=== PATIENT | male | born 1965 | race African-American/Black ===

== ENCOUNTER → 2017-11-02 06:40 | Outpatient (CLI) | payer MEDICARE, SELFPAY ==
--- NOTE | 2017-11-02 06:45 | MRI_ITS ---
STUDY: MRI BRAIN WITHOUT CONTRAST REASON FOR EXAM: Male, 52 years old. syncope, pt has episodes every 4-6 mos. TECHNIQUE: Standardized multiplanar fat and water weighted pulse sequences were obtained. COMPARISON: December 29, 2016 FINDINGS: Normal size of the ventricles and extra-axial spaces for the patient's age. There are a limited number of small white matter hyperintensities, distributed throughout the deep white matter tracts of the cerebral hemispheres,, nonspecific but most commonly seen with mild chronic white matter ischemic changes. Normal bilateral basal ganglia. Normal thalami. There is no extra-axial fluid accumulation. Normal flow voids within the major intracranial circulation suggesting patency by spin echo criteria. Normal sella turcica, pituitary gland, infundibular stalk, optic chiasm and hypothalamus. Normal tectal plate and pineal gland. Normal midbrain, fady and medulla. Normal cerebellum. Normal basal cisterns. Normal bilateral temporal bones. Normal bilateral internal auditory canals. No demonstrated orbital abnormality, within the constraints of a routine brain study. Normal visualized paranasal sinuses. Normal calvarium and skull base. Normal visualized soft tissue structures. Normal visualized upper cervical spine. MRI/Brain without Contrast IMPRESSION: No acute intracranial abnormality or masses. Electronically Signed: Ilia Maxwell MD at 15:42 EST Tel , Service support ,
== END ==
PROVIDERS: Visit Provider Psychiatry & Neurology Neurology
DX: R55 Syncope and collapse (principal)
CPT/HCPCS: 70551

== ENCOUNTER → 2017-11-17 06:56 | Outpatient (CLI) | payer MEDICARE, SELFPAY ==
--- NOTE | 2017-11-19 13:23 | EEG_ITS ---
- Electroencephalogram Is an 18 channel electroencephalogram performed utilizing the International 10- 20 electrode placement protocol on this 52-year-old male with a history of syncope. EKG rhythm strip recording, photic stimulation, and hyperventilation were also performed. The patient remained awake throughout the recording with no lateralizing or epileptiform changes. Background activity is 10 Hz symmetrically in the posterior leads which attenuates with eye opening. Hyperventilation is performed for 4 minutes with good effort with no lateralizing or epileptiform changes in the post hyperventilatory phase was unremarkable. Photic stimulation generates a normal symmetric driving response and EKG rhythm is sinus throughout. Impression: Normal awake electroencephalogram.
== END ==
PROVIDERS: Visit Provider Psychiatry & Neurology Neurology
DX: R55 Syncope and collapse (principal); I49.9 Cardiac arrhythmia, unspecified
CPT/HCPCS: 95819

== ENCOUNTER 2018-02-28 17:00 | Observation (INO) | payer MEDICARE, SELFPAY ==
--- NOTE | 2018-02-28 19:00 | US_ITS ---
STUDY: CT ABDOMEN AND PELVIS WITHOUT CONTRAST REASON FOR EXAM: Male, 53 years old. Abdominal pain and nausea. RADIATION DOSAGE (If Supplied By Facility): CTDIvol = ( 14.71 ) mGy, DLP = ( 732.62 ) mGycm TECHNIQUE: Transaxial images were obtained from the dome of the diaphragm to the symphysis pubis without oral contrast, and without intravenous contrast. Sagittal and coronal images were reconstructed. Individualized dose optimization techniques were used for this CT. COMPARISON: Comparison is made with prior study dated March 01, 2018. FINDINGS: The visualized lung bases are unremarkable. The visualized portions of the heart are within normal limits. There is decreased attenuation of the liver consistent with steatosis. Hepatomegaly. Normal gallbladder and extrahepatic biliary system. Normal spleen. Normal pancreas. Normal bilateral adrenal glands. Normal right kidney. Normal left kidney. There is a small hiatal hernia. Normal small intestine. Normal colon. The appendix is visualized and appears normal. There is scattered atherosclerotic calcification of the abdominal aorta, without a demonstrated aneurysm. Normal inferior vena cava. Normal retroperitoneum. Normal urinary bladder. Normal abdominal wall. Normal osseous structures. Straightening of the normal lumbar lordosis. US/Abdomen Limited IMPRESSION: Hepatomegaly and fatty infiltration of the liver. Electronically Signed: Brendan Ty MD at 15:34 EST , Service support ,
--- NOTE | 2018-03-01 00:01 | CT_ITS ---
STUDY: CT ABDOMEN AND PELVIS WITH CONTRAST REASON FOR EXAM: Male, 52 years old. Abdominal pain. Nausea. RADIATION DOSAGE (If Supplied By Facility): CTDIvol = ( 16.17 ) mGy, DLP = ( 1175.57 ) mGycm TECHNIQUE: Transaxial images were obtained from the dome of the diaphragm to the symphysis pubis with oral contrast. 100 ml of Isovue 300 contrast was administered. Sagittal and coronal images were reconstructed. Individualized dose optimization techniques were used for this CT. COMPARISON: December 29, 2016. FINDINGS: Lower lung atelectasis. The visualized portions of the heart are within normal limits. There is hepatomegaly with diffuse hepatic enlargement. There is increased density adjacent to the gallbladder fossa suggesting focal sparing of fatty infiltration. Normal gallbladder and extrahepatic biliary system. Normal spleen. Normal pancreas. Normal bilateral adrenal glands. Normal right kidney. There is 0.8 cm cyst of the left kidney. There is no hydronephrosis. Normal visualized stomach. Normal small intestine. Normal colon. The appendix is visualized and appears normal. There is atherosclerotic calcification of the abdominal aorta, without a demonstrated aneurysm. Normal inferior vena cava. Normal retroperitoneum. Normal urinary bladder. There is mild free fluid in the pelvis. Normal abdominal wall. Normal osseous structures. CT/Abdomen/Pelvis WITH Contrast IMPRESSION: No intra-abdominal mass or obstruction. Normal appendix. Liver is enlarged. There is mild free fluid. Electronically Signed: Saurabh Pickens MD at 8:48 EDT , Service support ,
--- NOTE | 2018-03-01 02:45 | DT_ITS ---
This patient was seen during an EMR downtime February 26, 2018 - March 05, 2018. This patient may have a combination of paper and electronic documentation or all paper documentation. All documentation is viewable within the e-chart portion of [facility] for each patient visit.
--- NOTE | 2018-03-02 08:11 | RAD_ITS ---
CLINICAL HISTORY: Male, 52 years old. Right-sided abdominal pain PROCEDURE: Upper GI FLUOROSCOPY TIME (if supplied): (2:34) minutes/seconds TECHNIQUE: (Following ingestion of contrast fluoroscopic examination of the esophagus and upper GI tract was performed followed by acquisition of 10 images in varying projection. FINDINGS: Esophagus demonstrated normal contour and motility. There is no appreciable hiatal hernia is noted however there was minor reflux demonstrated during the study. Stomach demonstrated normal distensibility and contractility. There is no gastric mass or ulcer crater. Duodenal bulb has normal radiographic appearance without evidence for active ulcer disease. No extrinsic masses are identified. RAD/Upper GI Series Only IMPRESSION: Minor gastroesophageal reflux. No evidence for active ulcer disease or mass lesion Electronically Signed: Francesco Amraal MD at 16:30 EDT , Service support ,
[2018-03-03 06:52] LABS: AST(SGOT) 29 U/L (15-37); Alanine Aminotransfer ALT/SGPT 52 U/L (16-61); Albumin, Serum 4.4 g/dL (3.2-5.0); Alkaline Phosphatase 76 U/L (45-117); Anion Gap 10 (5-15); BUN 12 mg/dL (7-18); BUN/Creat Ratio 10.5 RATIO (10-20); Bilirubin, Direct 0.12 mg/dL (0.00-0.30); Calcium,Total 9.4 mg/dL (8.5-10.1); Chloride 102 mmol/L (98-107); Creatinine, Serum 1.14 mg/dL (0.70-1.30); EST Glomerular Filtration Rate 72 mL/min (>60); Est Glom Filt Rate - Afr Amer 87 mL/min (>60); Globulin 3.9 g/dL (2.2-4.2); Glucose 148 mg/dL (74-106); Lipase 229 U/L (73-393); Potassium 3.6 mmol/L (3.5-5.1); Protein, Total 8.3 g/dL (6.4-8.2); Sodium Level 140 mmol/L (136-145)
[2018-03-03 10:30] LABS: Hematocrit 41.9 % (40-54); Hemoglobin 14.2 g/dl (13.0-16.5); Mean Corp Hgb Conc 33.9 g/gl (32-36); Mean Corpuscular Volume 91.5 fL (80-94); Mean Platelet Vol. 9.9 fl (6.2-12.0); POSITIVE COUNT NO; POSITIVE DIFFERENTIAL NO; POSITIVE MORPHOLOGY NO; Platelet Count 192 K/mm3 (150-450); RBC Distribution Width CV 13.4 % (11.6-14.6); RBC Distribution Width SD 43.9 fl (35.1-43.9); Red Blood Count 4.58 M/mm3 (4.6-6.2); White Blood Count 12.5 K/mm3 (4.4-11.0)
[2018-03-03 10:31] LABS: Absolute Lymphocyte Count 3.89 X10^3/ul (0.83-4.51); Absolute Neutrophil Count 7.8 X10^3/uL (2.0-7.7); Basophil# 0.03 X10^3/uL; Basophil% 0.2 % (0-1); Eosinophils% 1.6 % (0-5); Lymphocyte # 3.89 X10^3/ul (4.0); Lymphocyte % 31.2 % (19-41); Monocyte# 0.53 X10^3/uL; Monocyte% 4.3 % (0-10); Neutrophil % 62.5 % (47-70)
[2018-03-03 11:18] LABS: Bacteria 0 SEEN /hpf (None Seen); Mucous, Urine 0 SEEN /hpf (<or=2+); Red Blood Cells-Urine 0 SEEN /hpf (0-5)
[2018-03-03 11:26] LABS: Color, Urine Yellow (Yellow); Glucose, Dipstick 250 mg/dl (Normal); Ketone-Dipstick Negative (Negative); Leukocyte Esterase-Dipstick Negative /ul (Negative); Nitrite-Dipstick Negative (Negative); Occult Blood-Urine Negative /ul (Negative); Protein-Dipstick 15 mg/dl (Negative); Urine Bilirubin Dipstick Negative (Negative); Urine Clarity Clear (Clear); Urine Urobilinogen Normal (Normal)
[2018-03-03 11:27] LABS: Squamous Epithelial Cells - UA 0-5 SEEN /hpf (0-5); White Blood Cells 0-5 SEEN /hpf (0-5)
[2018-03-03 13:46] LABS: BUN 11 mg/dL (7-18); BUN/Creat Ratio 10.5 RATIO (10-20); Creatinine, Serum 1.05 mg/dL (0.70-1.30); EST Glomerular Filtration Rate 79 mL/min (>60); Est Glom Filt Rate - Afr Amer 96 mL/min (>60); Glucose 153 mg/dL (74-106); Protein, Total 6.8 g/dL (6.4-8.2)
[2018-03-03 13:47] LABS: ALB/GLOB Ratio 1.1 RATIO (0.9-2.4); AST(SGOT) 21 U/L (15-37); Alanine Aminotransfer ALT/SGPT 41 U/L (16-61); Albumin, Serum 3.6 g/dL (3.2-5.0); Alkaline Phosphatase 55 U/L (45-117); Anion Gap 8 (5-15); Calcium,Total 8.5 mg/dL (8.5-10.1); Chloride 104 mmol/L (98-107); Globulin 3.2 g/dL (2.2-4.2); Lipase 135 U/L (73-393); Magnesium 1.6 mg/dL (1.6-2.6); Potassium 3.7 mmol/L (3.5-5.1); Sodium Level 139 mmol/L (136-145)
[2018-03-03 14:58] LABS: Absolute Neutrophil Count 7.4 X10^3/uL (2.0-7.7); Basophil# 0.02 X10^3/uL; Basophil% 0.2 % (0-1); Eosinophil# 0.21 X10^3/uL; Eosinophils% 1.8 % (0-5); Hematocrit 37.3 % (40-54); Hemoglobin 12.4 g/dl (13.0-16.5); Lymphocyte % 29.9 % (19-41); Mean Corp Hgb Conc 33.2 g/gl (32-36); Mean Corpuscular Hgb 30.5 pg (27.0-32.0); Mean Corpuscular Volume 91.9 fL (80-94); Mean Platelet Vol. 9.6 fl (6.2-12.0); Monocyte# 0.58 X10^3/uL; Neutrophil # 7.37 X10^3/uL (2.7-7.7); POSITIVE COUNT NO; POSITIVE DIFFERENTIAL NO; POSITIVE MORPHOLOGY NO; Platelet Count 172 K/mm3 (150-450); RBC Distribution Width CV 13.4 % (11.6-14.6); RBC Distribution Width SD 44.3 fl (35.1-43.9); Red Blood Count 4.06 M/mm3 (4.6-6.2); White Blood Count 11.7 K/mm3 (4.4-11.0)
[2018-03-06 09:03] LABS: Bedside Glucose 160 mg/dL (70-110)
[2018-03-06 09:25] LABS: Bedside Glucose 166 mg/dL (70-110)
[2018-03-06 09:27] LABS: Bedside Glucose 159 mg/dL (70-110)
[2018-03-06 09:29] LABS: Bedside Glucose 179 mg/dL (70-110)
[2018-03-06 09:31] LABS: Bedside Glucose 128 mg/dL (70-110)
== END 2018-03-02 11:20 | disposition home or self-care (01) ==
LOC: ED 03-01 08:05 → MS3 03-01 08:16
PROVIDERS: Admitting Provider Family Medicine; Emergency Provider Emergency Medicine; Visit Provider Family Medicine
DX: K21.0 Gastro-esophageal reflux disease with esophagitis (principal); E11.9 Type 2 diabetes mellitus without complications; I10 Essential (primary) hypertension; E78.5 Hyperlipidemia, unspecified; I25.10 Atherosclerotic heart disease of native coronary artery without angina pectoris; G40.909 Epilepsy, unspecified, not intractable, without status epilepticus; Z79.899 Other long term (current) drug therapy; Z79.82 Long term (current) use of aspirin; Z79.84 Long term (current) use of oral hypoglycemic drugs; F32.9 Major depressive disorder, single episode, unspecified; I25.2 Old myocardial infarction; F41.9 Anxiety disorder, unspecified; H40.9 Unspecified glaucoma; E66.9 Obesity, unspecified; Z68.29 Body mass index [BMI] 29.0-29.9, adult; Z71.3 Dietary counseling and surveillance
CPT/HCPCS: 36415; 74177; 74246; 76705; 80048; 80053; 80076; 81001; 82962; 83690; 83735; 85025; 96361; 96372; 96374; 96375; 96376; 97802; 99218; 99284; J7030; Q9967; A4216; G0378; J2405

== ENCOUNTER → 2018-03-19 13:15 | Outpatient (CLI) | payer MEDICARE, SELFPAY ==
--- NOTE | 2018-03-19 13:36 | BI_ITS ---
MAMMOGRAPHY - BILATERAL DIAGNOSTIC REASON FOR EXAM: Male, 52 years old. One-month history of left breast swelling and tenderness. PERTINENT HISTORY: Non-contributory. TECHNIQUE: Digital bilateral breast karley (3D mammographic acquisition) in the CC and MLO projections. 2-D mediolateral oblique (MLO) and craniocaudad (CC) views of both breasts were obtained. CAD: Full Field Digital Mammography with Computer Added Detection was performed. COMPARISON: Comparison is made with prior examination of November 29, 2012. FINDINGS: Breast Composition: The breasts are almost entirely fatty. Stable appearance of the retroareolar glandular tissue. Stable appearance of the 2 small well-defined nodules in the axillary region of the left breast most likely representing small lymph nodes. These measure 4.2 mm. No other significant abnormalities are identified. There has been no significant change since the prior study. BI/DIAG MAMM W/CAD, BILAT IMPRESSION: Stable bilateral diagnostic mammogram. With the patient's history of the left breast swelling and tenderness, correlation with ultrasound is recommended. ASSESSMENT CATEGORY: BIRADS Category 0: Incomplete. Need additional imaging evaluation. A letter regarding these results will be sent to the patient by the facility within 30 days. Approximately 10% of breast cancers are not detected by mammography. A normal mammogram should not delay biopsy of a clinically suspicious abnormality. Electronically Signed: Brendan Ty MD at 14:33 EDT Tel [phone], Service support ,
--- NOTE | 2018-03-19 14:15 | US_ITS ---
STUDY: ULTRASOUND BREAST - RIGHT REASON FOR EXAM: Male, 52 years old. Pain in the left breast. TECHNIQUE: Axial and longitudinal images of the RIGHT breast were performed with a high resolution ultrasound transducer. COMPARISON: Comparison is made with prior mammogram done earlier today. FINDINGS: RIGHT Breast: Small amount of fibroglandular tissue in the retroareolar region. This is in keeping with gynecomastia. IMPRESSION: Small amount of fibroglandular tissue in the retroareolar region of the breasts suggest lobar gynecomastia. ASSESSMENT CATEGORY: BIRADS Category 2: Benign. A letter regarding these results will be sent to the patient by the facility within 30 days. Electronically Signed: Brendan Ty MD at 15:48 EDT Tel [phone], Service support , STUDY: ULTRASOUND BREAST - LEFT REASON FOR EXAM: Male, 52 years old. Pain in the left breast. TECHNIQUE: Axial and longitudinal images of the LEFT breast were performed with a high resolution ultrasound transducer. COMPARISON: Comparison is made with prior mammogram done earlier today. FINDINGS: LEFT Breast: Small amount of the thyroid glandular tissue in the retroareolar region suggestive of gynecomastia. US/Breast Limited Unilateral IMPRESSION: Findings suggestive of gynecomastia. ASSESSMENT CATEGORY: BIRADS Category 2: Benign. A letter regarding these results will be sent to the patient by the facility within 30 days. Electronically Signed: Brendan Ty MD at 15:48 EDT Tel [phone], Service support ,
== END ==
DX: N62 Hypertrophy of breast (principal)
CPT/HCPCS: 76642; 77062; 77066; G0279

== ENCOUNTER → 2018-04-03 12:20 | Outpatient (CLI) | payer MEDICARE, SELFPAY ==
--- NOTE | 2018-04-03 12:24 | MRI_ITS ---
STUDY: MRI CERVICAL SPINE WITH AND WITHOUT CONTRAST REASON FOR EXAM: Male, 52 years old. H/O PRIOR HERNIATED DISC, , C/O SHOOTING PAIN L ARM WITH NUMBNESS AND TINGLING X 1 YR. TECHNIQUE: Standardized fat and water weighted pulse sequences were obtained in the sagittal and axial following I.V. administration of 10 ml of Gadavist contrast material. COMPARISON: None FINDINGS: Normal foramen magnum and brainstem-cervical cord junction. Normal craniovertebral junction. Normal anterior atlantoaxial articulation. Normal odontoid process. There is straightening of the normal cervical lordosis. Normal vertebral bodies and posterior osseous elements. C2-3: Normal endplates. Normal disc height, signal and morphology. Normal central canal and intervertebral neural foramina. C3-4: Normal endplates. Normal disc height, signal and morphology. Normal central canal and intervertebral neural foramina. C4-5: There is minimal disc space narrowing and endplate spondylosis. There is no significant disc herniation, spinal canal or foramina stenosis. C5-6: There is mild disc space narrowing and endplate spondylosis. There is a mild disc osteophyte complex with mild central canal stenosis. There is uncovertebral arthropathy with mild right and moderate left foraminal stenosis. C6-7: There is moderate disc space narrowing and endplate spondylosis. There is a mild disc osteophyte complex with mild central canal stenosis. There is uncovertebral arthropathy with mild right and moderate left foraminal stenosis. C7-T1: There is minimal disc space narrowing and endplate spondylosis. There is no significant central canal or right foraminal stenosis. There is uncovertebral arthropathy with mild left foraminal stenosis. Normal cervical cord. Normal visualized soft tissue structures. MRI/Spine Cervical W/WO Contrast IMPRESSION: C5/C6: Moderate left foraminal stenosis. C6/C7: Moderate left foraminal stenosis. Electronically Signed: Ilia Maxwell MD at 9:01 EDT Tel , Service support ,
== END ==
PROVIDERS: Visit Provider Nurse Practitioner Acute Care
DX: M79.602 Pain in left arm (principal); R20.0 Anesthesia of skin; R20.2 Paresthesia of skin
CPT/HCPCS: 72156; A9585

== ENCOUNTER → 2018-07-24 07:04 | Outpatient (CLI) | payer MEDICARE, SELFPAY ==
--- NOTE | 2018-07-24 11:10 | NEURO ---
NCS and/or EMG Patient Report Ordering Doctor: Heather Kelley DATE OF SERVICE: 07/24/18 This is a left upper extremity EMG and nerve conduction study performed on this 53-year-old male with a history of well-controlled diabetes and a most recent he an A1c of 6.3. The patient experienced a 3-month episode of pain and numbness radiating from his neck down to his left wrist which is now resolved. The symptoms seem to have been triggered by an episode of heavy lifting. Left upper extremity sensory and motor nerve conduction studies performed. The median motor and sensory and ulnar motor and sensory and radial sensory response is normal. The median ulnar F-wave latencies on the left side are normal. Left upper extremity needle electromyography is performed. Muscles evaluated included the abductor pollicis brevis, first dorsal interosseous, brachioradialis, biceps, triceps and deltoid muscles. All muscles demonstrated normal insertional activity with absence of pathologic spontaneous activity. Motor unit potential recruitment pattern and amplitude is normal in all muscles tested. Impression: Normal electrophysiologic study of the left upper extremity.
== END ==
PROVIDERS: Referring Provider Nurse Practitioner Acute Care; Visit Provider Nurse Practitioner Acute Care
DX: R20.0 Anesthesia of skin (principal); R20.2 Paresthesia of skin
CPT/HCPCS: 95886; 95909

== ENCOUNTER 2018-11-09 10:43 | Emergency (ER) | payer MEDICARE, SELFPAY ==
[2018-11-09 10:46] VITALS: BP 171/108; PULSE 124; RESP 17; TEMP 36.4; O2SAT 98; BMI 29.4
[2018-11-09 10:56] LABS: Bedside Glucose 240 mg/dL (70-110)
--- NOTE | 2018-11-09 11:05 | EKG12_ITS ---
Test Reason : ABD PAIN Blood Pressure : / mmHG Vent. Rate : 092 BPM Atrial Rate : 092 BPM P-R Int : 138 ms QRS Dur : 086 ms QT Int : 344 ms P-R-T Axes : 051 -08 012 degrees QTc Int : 425 ms Normal sinus rhythm T wave abnormality, consider lateral ischemia Abnormal ECG Confirmed by CHIP CADE, TAPAN ([id number]), news copy editor EDITH BARFIELD ([id number]) on 11/13/2018 10:38:37 AM Referred By: LISA Confirmed By:TAPAN SAUNDERS MD
[2018-11-09 11:18] LABS: Absolute Lymphocyte Count 2.15 X10^3/ul (0.83-4.51); Absolute Neutrophil Count 5.9 X10^3/uL (2.0-7.7); Basophil# 0.01 X10^3/uL; Basophil% 0.1 % (0-1); Eosinophil# 0.18 X10^3/uL; Hematocrit 44.5 % (40-54); Hemoglobin 14.6 g/dl (13.0-16.5); Lymphocyte # 2.15 X10^3/ul (4.0); Lymphocyte % 24.3 % (19-41); Mean Corp Hgb Conc 32.8 g/gl (32-36); Mean Corpuscular Hgb 30.3 pg (27.0-32.0); Mean Corpuscular Volume 92.3 fL (80-94); Mean Platelet Vol. 10.2 fl (6.2-12.0); Monocyte% 6.8 % (0-10); Neutrophil # 5.91 X10^3/uL (2.7-7.7); Neutrophil % 66.7 % (47-70); Platelet Count 168 K/mm3 (150-450); RBC Distribution Width CV 13.8 % (11.6-14.6); RBC Distribution Width SD 46.8 fl (35.1-43.9); Red Blood Count 4.82 M/mm3 (4.6-6.2); White Blood Count 8.9 K/mm3 (4.4-11.0)
[2018-11-09 11:24] LABS: POSITIVE COUNT NO; POSITIVE DIFFERENTIAL NO; POSITIVE MORPHOLOGY NO
[2018-11-09] MEDS: HYDROmorphone 1 MG/ML Syringe IV (11:37)
[2018-11-09] MEDS: Ondansetron 4 MG/2 ML Vial IV (11:37)
[2018-11-09] MEDS: 0.9% Normal Saline 1,000 ML 125 ML IV (11:37)
[2018-11-09 11:41] LABS: AST(SGOT) 65 U/L (15-37); Alanine Aminotransfer ALT/SGPT 68 U/L (16-61); Albumin, Serum 4.3 g/dL (3.2-5.0); Alkaline Phosphatase 81 U/L (45-117); Anion Gap 14 (5-15); BUN 15 mg/dL (7-18); BUN/Creat Ratio 11.5 RATIO (10-20); Chloride 99 mmol/L (98-107); Creatinine, Serum 1.31 mg/dL (0.70-1.30); EST Glomerular Filtration Rate 61 mL/min (>60); Est Glom Filt Rate - Afr Amer 73 mL/min (>60); Estimated Creatinine Clearance 69.46 ml/min; Globulin 4.2 g/dL (2.2-4.2); Glucose 229 mg/dL (74-106); Lipase 210 U/L (73-393); Potassium 3.4 mmol/L (3.5-5.1); Protein, Total 8.5 g/dL (6.4-8.2); Sodium Level 134 mmol/L (136-145)
[2018-11-09 12:00] LABS: Red Blood Cells-Urine 0 SEEN /hpf (0-5)
--- NOTE | 2018-11-09 12:02 | US_ITS ---
STUDY: ABDOMINAL ULTRASOUND - RIGHT UPPER QUADRANT REASON FOR VISIT: Male, 53 years old. Abdominal pain. TECHNIQUE: Ultrasound evaluation of the right upper quadrant was performed with real-time and static adam-scale imaging. TECHNICAL QUALITY: Adequate. COMPARISON: Comparison is made with prior study dated February 28, 2018. FINDINGS: Liver: The liver is slightly enlarged and measures 18.3 cm. There is increased echogenicity consistent with fatty infiltration. The bile ducts are within normal limits. There is hepatic color flow. The direction of portal flow is hepatopetal. There is no demonstrated mass lesion. Gallbladder: Normal distended gallbladder. The gallbladder wall measures 3.0 mm. There is a negative sonographic Holder's sign. There is no pericholecystic fluid. There are no gallstones. Common Bile Duct (C.B.D.): The common bile duct measures 4.0 mm. Pancreas: There is nonvisualization of the pancreas due to overlying bowel gas. Right Kidney: Normal size of the right kidney. The right kidney measures 10.8 cm x 6 cm x 5.4 cm. Normal renal cortex. The right cortex measures 2.1 cm. There is no demonstrated renal mass or cyst. There is no right hydronephrosis. US/Gallbladder IMPRESSION: Mildly enlarged fatty infiltration of the liver. Electronically Signed: Brendan Ty MD at 14:08 EST , Service support ,
--- NOTE | 2018-11-09 12:03 | ED.VISSUMM ---
- ER Visit Summary Date of Service: 11/09/18 Chief Complaint: [Abdominal pain] History of Present Illness: The patient is a 53 M [presents the emergency department with complaint of abdominal pain that started around 4:30 PM. Patient describes the pain is intermittent and sharp and stabbing to the right upper quadrant radiating through to his back. Patient states the pain became worse after eating yesterday states that he ate a turkey sandwich and some cereal. Patient states he had similar symptoms about 6 months ago and he was told that it might be his gallbladder acting up. At that time patient had a CAT scan of his abdomen pelvis as well as an ultrasound and an upper GI which apparently were relatively unremarkable. Patient denies any fevers. He denies any diarrhea. He denies any blood in his stool or black tarry stool. Past medical history significant for coronary artery disease, diabetes, hypertension, high cholesterol.] Physical Examination: [HEENT-PERRLA, EOMI. Cranial nerves II through XII grossly intact. TMs clear. Mucous membranes moist. No adenopathy. Cardiovascular-regular rate and rhythm without murmur or ectopy Lungs-clear to auscultation, chest wall stable without crepitus or subcu emphysema Abdomen-normoactive bowel sounds, soft. Patient has tenderness palpation over the right upper quadrant with some guarding. There is no rebound, rigidity, or perineal signs. He does have a positive Holder sign. Extremities-intact ?4, normal range of motion, normal pulses, atraumatic] Test Results: [CBC with differential obtained showed a white count of 8.9, hemoglobin 14.6, hematocrit 44, platelets 168. Chemistries unremarkable. ALT was 68 and AST was 65. Lipase was normal. Troponin was less than 0.015. EKG obtained arrival shows sinus rhythm with a ventricular rate of [address] changes. When compared with prior EKG from 2017 no significant changes noted.] Gallbladder of the ultrasound obtained which showed some fatty infiltration of the liver otherwise no evidence for cholecystitis. CT scan of the abdomen pelvis without contrast again showed fatty liver otherwise nothing acute. Emergency Department Course and Treatment: [Patient was medicated with morphine and Zofran. He was given IV fluids. Case was discussed with surgeon on-call Dr. Melissa Felix who would be happy to see the patient in the office in follow-up.] Treatment Plan: [Follow-up with general surgeon in the office. Patient will be given a prescription for Prevacid as well as [place] for severe pain.] Disposition: [Discharged home in stable condition. Patient advised to return if worsening pain, fever, vomiting, bloody stool, or condition should worsen anyway.] Impression: [Abdominal pain-etiology uncertain] This note was generated with psicofxp dictation software. It may contain incorrect words, spelling, and punctuation that were not noted in review of the chart prior to signing ED Disposition - Plan for ED Patient: Referrals: Mame Schneider [Primary Care Provider] -
[2018-11-09 12:05] LABS: Color, Urine Yellow (Yellow); Glucose, Dipstick 250 mg/dl (Normal); Ketone-Dipstick 15 mg/dl (Negative); Leukocyte Esterase-Dipstick 25 /ul (Negative); Nitrite-Dipstick Negative (Negative); Occult Blood-Urine 25 /ul (Negative); Protein-Dipstick 100 mg/dl (Negative); Urine Clarity Clear (Clear); Urine Urobilinogen 1 mg/dl (Normal)
[2018-11-09 12:15] LABS: Urine Bilirubin Dipstick 1 mg/dL (Negative)
[2018-11-09 12:26] LABS: Bacteria 1+ /hpf (None Seen); Mucous, Urine 1+ /hpf (<or=2+); Squamous Epithelial Cells - UA 0-5 SEEN /hpf (0-5); White Blood Cells 0-5 SEEN /hpf (0-5)
[2018-11-09 12:33] LABS: Lactic Acid 2.5 mmol/L (0.4-2.0)
[2018-11-09 13:02] VITALS: BP 163/100; PULSE 96; RESP 17; TEMP 36.9; O2SAT 98
--- NOTE | 2018-11-09 14:43 | CT_ITS ---
STUDY: CT ABDOMEN AND PELVIS WITHOUT CONTRAST REASON FOR EXAM: Male, 53 years old. Abdominal pain and nausea. RADIATION DOSAGE (If Supplied By Facility): CTDIvol = ( 14.71 ) mGy, DLP = ( 732.62 ) mGycm TECHNIQUE: Transaxial images were obtained from the dome of the diaphragm to the symphysis pubis without oral contrast, and without intravenous contrast. Sagittal and coronal images were reconstructed. Individualized dose optimization techniques were used for this CT. COMPARISON: Comparison is made with prior study dated March 01, 2018. FINDINGS: The visualized lung bases are unremarkable. The visualized portions of the heart are within normal limits. There is decreased attenuation of the liver consistent with steatosis. Hepatomegaly. Normal gallbladder and extrahepatic biliary system. Normal spleen. Normal pancreas. Normal bilateral adrenal glands. Normal right kidney. Normal left kidney. There is a small hiatal hernia. Normal small intestine. Normal colon. The appendix is visualized and appears normal. There is scattered atherosclerotic calcification of the abdominal aorta, without a demonstrated aneurysm. Normal inferior vena cava. Normal retroperitoneum. Normal urinary bladder. Normal abdominal wall. Normal osseous structures. Straightening of the normal lumbar lordosis. CT/Abdomen/Pelvis without Cont IMPRESSION: Hepatomegaly and fatty infiltration of the liver. Electronically Signed: Brendan Ty MD at 15:34 EST , Service support ,
--- NOTE | 2018-11-09 15:48 | ED.DEP ---
ED Disposition - Plan for ED Patient: Instructions: ED Abdominal Pain Unkn Cause Prescriptions: Oxycodone HCl/Acetaminophen [Percocet 5/325] 1 tab PO Q6H PRN PRN 3 Days #12 tab PRN Reason: Pain Lansoprazole [Prevacid] 30 mg PO DAILY #30 cap Referrals: Mame Schneider [Primary Care Provider] - Melissa Felix MD [STAFF PHYSICIAN] - 3-5 Days
[2018-11-09 15:49] LABS: Reflex Lactate? Y
[2018-11-09] MEDS: Morphine 4 MG/ML Syringe IV (16:01)
== END 2018-11-09 16:06 | disposition home or self-care (01) ==
LOC: ED 11:14
PROVIDERS: Emergency Provider Emergency Medicine
DX: R10.11 Right upper quadrant pain (principal); R68.83 Chills (without fever); R11.0 Nausea; K76.0 Fatty (change of) liver, not elsewhere classified; I25.10 Atherosclerotic heart disease of native coronary artery without angina pectoris; E11.9 Type 2 diabetes mellitus without complications; I10 Essential (primary) hypertension; E78.00 Pure hypercholesterolemia, unspecified; Z79.82 Long term (current) use of aspirin; Z79.4 Long term (current) use of insulin; Z79.84 Long term (current) use of oral hypoglycemic drugs; Z79.899 Other long term (current) drug therapy
CPT/HCPCS: 74176; 76705; 80053; 81001; 82962; 83605; 83690; 84484; 85025; 93005; 96361; 96374; 96375; 99284; J7030; A4216; J2405

== ENCOUNTER 2019-01-07 05:50 | Day surgery (SDC) | payer MEDICARE, SELFPAY ==
[2019-01-03 08:27] LABS: Partial Thromboplast Time 25.4 Seconds (24.1-36.2)
[2019-01-03 08:39] LABS: BUN 11 mg/dL (7-18); BUN/Creat Ratio 9.5 RATIO (10-20); Calcium,Total 9.6 mg/dL (8.5-10.1); Chloride 105 mmol/L (98-107); Creatinine, Serum 1.16 mg/dL (0.70-1.30); EST Glomerular Filtration Rate 70 mL/min (>60); Est Glom Filt Rate - Afr Amer 85 mL/min (>60); Glucose 184 mg/dL (74-106); Potassium 3.9 mmol/L (3.5-5.1); Sodium Level 141 mmol/L (136-145)
[2019-01-03 08:40] LABS: Anion Gap 10 (5-15)
[2019-01-03 08:45] LABS: Hemoglobin A1c 7.2 % (4.2-6.3)
--- NOTE | 2019-01-06 12:19 | HP.PCM_ITS ---
History and Physical Date of Admission: 01/07/19 HISTORY AND PHYSICAL ? Bronson Petersen Gabriela 1965 ? ? REFERRING PHYSICIAN: [facility], [place] ? CHIEF COMPLAINT: Abdominal pain ? HPI: The patient is a 53 year old male presents with right upper quadrant abdominal pain. He states that he has noted this pain for about 14 years However, it has been worsening in past month. He notes that it is worse after eating meals - greasy foods, especially. He notes radiation of the pain to the back. Denies fevers. Has nausea, denies emesis. Denies diarrhea or constipation. Seen in [facility] ED on 11/09/18 US Gallbladder of the ultrasound obtained which showed some fatty infiltration of the liver otherwise no evidence for cholecystitis. CT scan of the abdomen pelvis without contrast again showed fatty liver otherwise nothing acute. HIDA scan 11/28/18 - ejection fraction of 21% - 11/28/18 ? ? PAST MEDICAL HISTORY ? Acute myocardial infarction of other specified sites, episode of care unspecified 09/2011 ? Myocardial Infarction ? Coronary artery disease ? ? Diabetes (HCC) ? ? Esophageal reflux ? ? Gastroesophageal reflux ? Glaucoma ? ? Mental disorder ? ? Mixed hyperlipidemia ? ? Hyperlipidemia ? Unspecified essential hypertension ? ? Essential hypertension Seizure disorder - dx'd 4 years ago ? ? PAST SURGICAL HISTORY ? EGD W/O OR W/BRUSH/WASH ? ? ? EGD for foreign body removal ?? TRANSCATH STENT ADDN VESSEL,PERCUT ? 09/2011 ? Transcath stent addn vessel percut Injections for neck - herniated disk ? ? PAST INJURIES Head trauma - football injury, history of left arm fracture ? ? Current Outpatient Prescriptions: cholecalciferol (VITAMIN D-3) 5,000 unit tab Take 5,000 Units by mouth once daily. loratadine 10 mg cap Take by mouth once daily. amitriptyline (ELAVIL) 25 mg tablet Take 25 mg by mouth daily at bedtime. magnesium oxide 400 mg cap Take by mouth twice daily. levETIRAcetam (KEPPRA) 250 mg tablet Take 250 mg by mouth twice daily. fluticasone propionate (FLONASE NASAL) Use in the nose once daily. naproxen (NAPROSYN) 500 mg tablet Take 500 mg by mouth twice daily with meals. As needed for pain latanoprost 0.005 % dpem Use in eyes once daily. lansoprazole (PREVACID) 30 mg capsule Take 30 mg by mouth once daily. hydrochlorothiazide (HYDRODIURIL, ESIDRIX) 25 mg tablet Take 25 mg by mouth once daily. losartan (COZAAR) 25 mg tablet Take 25 mg by mouth once daily. aspirin, enteric coated (ECOTRIN LOW STRENGTH) 81 mg EC tablet Take 81 mg by mouth once daily. pravastatin (PRAVACHOL) 10 mg tablet Take 60 mg by mouth once daily. amLODIPine (NORVASC) 5 mg tablet Take 5 mg by mouth once daily. metFORMIN (GLUCOPHAGE) 500 mg tablet Take 500 mg by mouth twice daily with meals. INSULIN GLARGINE,HUM.REC.ANLOG (LANTUS SUBCUTANEOUS) Inject subcutaneously. nitroglycerin sublingual (NITROSTAT) 0.4 mg SL tablet Dissolve 0.4 mg under the tongue every 5 minutes as needed. traZODone (DESYREL) 50 mg tablet Take 1 tablet by mouth daily at bedtime. Multivitamin capsule Take 1 capsule by mouth once daily. SOFT LENS RINSE-STORE SOLUTION (SALINE MISC) ? lidocaine (LIDODERM) 5 %(700 mg/patch) Apply 1 Patch as directed every 24 hours. ? ? ALLERGIES: Lisinopril; Tramadol; Vicodin [Hydrocodone-Acetaminophen] - itching ? ? 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 FAMILY HISTORY ? other (DDD lumbar [Other]) Father ? ? Diabetes Mother ? ? Diabetes Father ? ? Ischemic Heart Disease Mother ? Mother had gallstones ? ? REVIEW OF SYSTEMS: General: The patient NOTES fatigue, denies weight loss, denies weight g ain, NOTES feeling hot, and denies feelings of cold. Eyes: The patient NOTES glaucoma, denies eye injury/surgery, wears glasses or contacts. Ear/Nose/Throat: The patient denies allergies, denies hayfever, denies ear infections, and denies bloody noses. Cardiovascular: The patient denies chest pain, denies heart disease, NOTES high blood pressure,denies cardiac stent, NOTES prior heart attack, denies irregular heart beat, NOTES high cholesterol, denies poor circulation, denies heart failure, other cardiac issues, denies claudication, denies cold feet, denies peripheral arterial stent. Respiratory: The patient denies tuberculosis, denies pneumonia, denies frequent cough, denies pulmonary embolism, denies shortness of breath, and denies coughing up blood. Gastrointestinal: The patient denies difficulty swallowing, NOTES acid reflux, NOTES ulcers, denies vomiting, denies jaundice/hepatitis, denies gallbladder problems, denies black or tarry stools, denies hemorrhoids, denies bleeding from rectum, denies diverticulitis, denies constipation, denies diarrhea, denies loss of stool control, and denies hernias. Kidney/Bladder: The patient denies kidney stones, denies urine infections, and denies bloody urine. Skin: The patient denies a history of skin cancer, denies bleeding/changing moles, and denies a history of skin rash. Neurologic: The patient denies a history of epilepsy/convulsions, denies headaches, denies head/spinal injuries, and NOTES stroke/TIA. Psychiatric: The patient denies psychiatric medications, NOTES depression, and denies voices, denies substance abuse. Endocrine: The patient denies thyroid disorders, NOTES diabetes, and denies hormonal problems. Hematologic: The patient denies a history of bruising, denies bleeding, and denies anemia, denies blood clots. Infections: The patient denies a history of measles and mumps, denies rheumatic fever, and denies sexually transmitted diseases. Musculoskeletal: The patient NOTES back pain/injury, denies back problems, denies sciatica, denies knee/foot trouble, denies arthritis, or denies gout. ? PHYSICAL EXAMINATION: General: The patient is 53 year old male, well nourished, well hydrated in no acute distress. The patient is oriented to time, place, and person. VITALS: Blood pressure 120/84, pulse 80, temperature 36.4 ?C (97.6 ?F), temperature source Temporal Artery, height 180.3 cm (5' 11), weight 98 kg (216 lb), SpO2 98 %. Body mass index is 30.13 kg/m?. Head ? Normocephalic. EOM intact with sclera clear and no icterus noted. Wearing glasses. Mouth with mucus membranes moist. Neck - supple with no jugular venous distention noted. Trachea is midline. No masses noted. Lungs ? clear to auscultation.. Normal breath sounds. No rales/rhonchi/wheezing noted. No labored breathing noted, such as retractions. Heart ? normal S1 and S2 auscultated. No rubs/clicks/murmurs noted. Regular rate. Abdomen ? soft and benign. Normal bowel sounds. Tender in epigastrium and right upper quadrant to deep palpation but no peritoneal signs noted. Extremities ? no calf tenderness noted. No pitting edema noted. Skin ? normal skin integrity. Neurological ? gait normal, no focal deficits noted. Psych ? calm and appropriate ? ? IMPRESSION: right upper quadrant abdominal pain, abnormal HIDA scan ? ? PLAN: I have discussed the above with the patient. I have discussed above with the patient. I have explained gallbladder disease in layman?s terms. I have counseled patient that removal of the gallbladder is not a guarantee of abating the patient's symptoms. I have offered laparoscopic cholecystectomy with possible cholangiogram. I have explained the procedure to the patient. Patient has been counseled to the risks/benefits of the procedure. I have explained the risks of the surgery, including but not limited to: infection, bleeding, injury to any intraabdominal organs, injury to bowel/bladder, injury to any blood vessels/nerves, injury to biliary ducts and common bile duct, bile leak, scar tissue, intraabominal abscess, trocar hernias, wound infections, etc. ? the patient understands He wishes to proceed. I have answered all of the patient's questions to his satisfaction and he has no further questions. ?
[2019-01-07] VITALS (7 sets, daily range): BP systolic 120–150; BP diastolic 75–92; PULSE 71–100; RESP 16; TEMP 36.2–36.3; O2SAT 92–100; BMI 30.6
--- NOTE | 2019-01-07 | GALL_PTH ---
PATIENT: BRANDON WELLER LOC: [facility] [place][id number] AGE/SX: 53/M ROOM: RE01/07/[address]: Dr. Melissa Felix MD : 1965 BED: DIS: 01/07/2019 SPEC #: [id number] RECD: 01/07/19 13:26 STATUS: BHUPINDER REFranklin #: [id number] JOE: 01/07/19 00:[address]: Melissa Felix DEPT: SURGICAL PATHOLOGY RECD BY: Eric Vital ENTERED: 01/07/19 13:26 SP TYPE: ROLF ROBERTSON DR: Natasha Zamudio, BRIQUETTER OPERATOR-C [facility] Tissues: Gallbladder, NOS Procedures: Surgery Specimen Level III HEADER OPERATION: Laparoscopic cholecystectomy with IOC PRE-OP DIAGNOSIS: Biliary dyskinesia, cholelithiasis TISSUE SUBMITTED: Gallbladder and contents MICROSCOPIC DIAGNOSIS Gallbladder, cholecystectomy: Chronic cholecystitis. AM:jonathan 4/16/19 MICROSCOPIC DESCRIPTION Slides are reviewed. GROSS DESCRIPTION Received is one container labeled with the patient's name and designated gallbladder and contents. The specimen consists of a gallbladder measuring 7 cm in length and 2.5 cm in diameter. The external surface is pink-gabriel, smooth and glistening for the most part. Focally it is granular, hemorrhagic and contains cautery artifact. The gallbladder contains green-yellow mucoid bile. No stones are identified in the container or in the gallbladder. The mucosa is bile-stained and without any mass lesions. The gallbladder wall measures 0.2 cm in thickness. [facility] Aide sections from the gallbladder and the cystic duct are submitted in one cassette. / SJ:rg 01/07/19 TC:3 CPT: 86614
[2019-01-07 07:20] LABS: Bedside Glucose 145 mg/dL (70-110)
--- NOTE | 2019-01-07 07:56 | PCM.DC.GB ---
Discharge Diet: No Restrictions - drink plenty of fluids, avoid carbonated beverages for a day or two Discharge Activity: Return to Normal Activity, May not drive while taking narcotic pain medications. Return to work on:: 01/22/19 Lifting Restrictions: no lifting/pulling/pushing greater than 20 pounds for two weeks Call your doctor if your incision/area has: Continuous Slow Oozing, Foul Smelling Discharge Call your doctor if you observe: Fever of 101 or Higher Additional Dressing/Incision Instructions:: Leave dressings intact. May get wet in shower - do not scrub in areas, rinse and pat dry. Do not soak - no tub baths/swimming Additional Instructions: Recommended medication regimen for pain control: take 600 mg ibuprofen then in three to four hours take 650 mg acetaminophen, then in 3-4 hours take 600 mg ibuprofen, then in 3-4 hours take 650 mg acetaminophen and continue alternating with this schedule for 1-2 days take narcotic pain medications for breakthrough pain and/or at night prior to sleep Allergies/Adverse Reactions: Allergies hydrocodone bitartrate [From Vicodin] Allergy (Verified 01/07/19 06:53) Angioedema lisinopril Allergy (Verified 01/07/19 06:53) Angioedema tramadol Allergy (Verified 01/07/19 06:53) Itching cyclobenzaprine Adverse Reaction (Severe, Verified 01/07/19 06:53) Skin crawling Medications to take at Discharge Nitroglycerin [Nitrostat] 0.4 mg SUBLINGUAL Q5M PRN 07/15/13 Metformin HCl [Glucophage] 500 mg PO BID 11/28/13 Loratadine 10 mg PO DAILY 06/01/17 [place]-3S/Dha/Epa/Fish Oil [Fish Oil 1,200 mg Softgel] 1 ea PO DAILY 06/01/17 fluticasone propionate 50 mcg/actuation nasal spray,suspension 2 spray INTRANASAL QDAY PRN g 12/04/17 latanoprost 0.005 % eye drops 1 applic OPHTHALMIC PRN PRN 28 Days #3 12/05/17 amlodipine 5 mg tablet 5 mg PO DAILY #30 tab 05/16/18 aspirin 81 mg chewable tablet 81 mg PO DAILY@0800 #30 tab 05/16/18 hydrochlorothiazide 25 mg tablet 25 mg PO DAILY #30 tab 05/16/18 losartan 50 mg tablet 50 mg PO DAILY #30 tab 05/16/18 magnesium oxide 400 mg (241.3 mg magnesium) tablet 400 mg PO BID #60 tab 05/16/18 amitriptyline 25 mg tablet 25 mg PO DAILY 07/03/18 insulin glargine (U-100) 100 unit/mL (3 mL) subcutaneous pen 100 unit SC PRN PRN 07/03/18 pravastatin 20 mg tablet 20 mg PO DAILY #90 tab 10/07/18 pravastatin 40 mg tablet 40 mg PO DAILY #90 tab 10/07/18 Cholecalciferol (Vitamin D3) [Vitamin D3] 1 cap PO DAILY 11/09/18 Lansoprazole [Prevacid] 30 mg PO DAILY #30 cap 11/09/18 Levetiracetam [Keppra] 250 mg PO BID 11/09/18 Naproxen 500 mg PO BID 11/09/18 Oxycodone [Oxyir] 5 mg PO Q8H PRN PRN 5 Days #15 tab 01/07/19 The following prescriptions were given: Oxycodone [Oxyir] 5 mg PO Q8H PRN PRN 5 Days #15 tab PRN Reason: Mod-Severe Pain (4-10) Primary Care Physician: Mame Schneider [Primary Care Provider] - Test Results: Test results from this visit will be discussed in further detail at your follow-up appointment, if applicable.
--- NOTE | 2019-01-07 08:40 | RAD_ITS ---
CLINICAL HISTORY: Male, 53 years old. Biliary dyskinesia. PROCEDURE: CHOLANGIOGRAM - intraoperative FLUOROSCOPY TIME (if supplied): (0:01) minutes/seconds TECHNIQUE: (All elements of maximal sterile barrier technique followed, including US elements as applicable) Intraoperative cholangiogram was performed by the surgeon. Single image was submitted. Limited visualization. RAD/Cholangiogram/ O R,Initial IMPRESSION: Limited visualization. Electronically Signed: Brendan Ty, at 15:54 EDT , Service support ,
[2019-01-07] MEDS: Bupiv/Epi 0.25% 30 ML Vial (09:00)
--- NOTE | 2019-01-07 09:03 | OP.PCM_ITS ---
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 Appropriate time out protocol was followed. He was then placed in the supine position. The patient was then placed under general endotracheal anesthesia. The abdomen was then prepped with a sterile surgical skin preparation and sterile surgical drapes were placed. The infraumbilical skin fold was grasped with penetrating clamps and the skin and subcutaneous tissues were infiltrated with 0.25% marcaine with epinephrine. A transverse skin incision was then made with a 15 blade scalpel. The anterior abdominal wall was elevated and a Veress needle was carefully inserted into the intraabdominal cavity. It was checked to be in the proper position with a normal saline drop test. A CO2 pneumoperitoneum was then created. Once this was achieved, then the Veress needle was removed and an 11mm trocar was placed in its stead. A 10mm laparoscope was then inserted into the trocar and careful attention was directed to the intraabdominal contents. There was no evidence of injury to any intraabdominal organs from insertion of the Veress needle or the trocar. Under direct visualization, a 5mm subxiphoid trocar and two lateral 5mm right subcostal trocars were placed. The skin and subcutaneous tissues at these sites were infiltrated with 0.25% marcaine with epinephrine prior to placement of these trocars. Attention was then directed to the right upper quadrant of the abdomen. Graspers were placed in the lateral trocars to grasp the distal aspect of the gallbladder and direct it cephalad and to grasp the gallbladder at Bruce man?s pouch and direct it laterally. Dissection then began on the proximal gallbladder continuing down to the area of the triangle of Calot to bluntly dissect out the cystic duct. The neck of the gallbladder was identified and blunt dissection continued to dissect out a segment of the cystic duct. A clip was then placed on the neck of the gallbladder. A small ductotomy was then made. A Ranfac catheter was brought in through a separate skin incision and placed into the cystic duct. An intraoperative cholangiogram was performed under fluoroscopy. The xray revealed no lesions in the common bile duct, arborization of the biliary tree, and good flow into the duodenum. The Ranfac catheter was then removed and two clips were placed proximal to the ductotomy and the cystic duct was then transected. The cystic artery was visualized and bluntly isolated and then two clips were placed proximally and one clip distally and then it was transected between the proximal and distal clips. The gallbladder was then from the liver bed using electrocautery and thus able to be brought out of the umbilical port via an Endobag. It was then forwarded to pathology for analysis. The liver bed was carefully examined. There was no evidence of bile leakage or bleeding. The cystic duct stump and cystic artery stump had their clips intact and there was no evidence of bile leakage or bleeding. The remainder of the abdomen was grossly normal. The CO2 was released and all trocars removed intact. The periumbilical fascia was approximated with a [id number] 0 vicryl suture. All skin incision were closed with 4-0 monocryl in a subdermal fashion. Cavilol and Steristrips were used to reinforce the skin closure. Sterile dressings were applied to all wounds. The patient was extubated and brought to the Recovery Room in stable condition. - Complications none noted - Admit VTE Documentation VTE Present on Admission: Yes VTE Mechan Device Prophylaxis: SCD's
[2019-01-07 09:30] LABS: Bedside Glucose 152 mg/dL (70-110)
[2019-01-07] MEDS: oxyCODONE 5 MG Tablet PO ×2 (11:02→14:31)
== END 2019-01-07 14:40 | disposition home or self-care (01) ==
LOC: SDC 05:51 → AC 05:51
PROVIDERS: Anesthesiology; Referring Provider Surgery; Visit Provider Surgery
PROC: (CPT 47610; principal; 2019-01-07 07:40)
DX: K80.10 Calculus of gallbladder with chronic cholecystitis without obstruction (principal); E11.9 Type 2 diabetes mellitus without complications; F41.9 Anxiety disorder, unspecified; F32.9 Major depressive disorder, single episode, unspecified; K21.9 Gastro-esophageal reflux disease without esophagitis; I25.10 Atherosclerotic heart disease of native coronary artery without angina pectoris; I10 Essential (primary) hypertension; G40.909 Epilepsy, unspecified, not intractable, without status epilepticus; G25.81 Restless legs syndrome; I25.2 Old myocardial infarction; E78.2 Mixed hyperlipidemia; Z79.899 Other long term (current) drug therapy; Z79.82 Long term (current) use of aspirin; Z87.891 Personal history of nicotine dependence; Z79.4 Long term (current) use of insulin; Z87.11 Personal history of peptic ulcer disease; K76.0 Fatty (change of) liver, not elsewhere classified
CPT/HCPCS: 00790; 47563; 36415; 74300; 76000; 80048; 82962; 83036; 85730; 88304; 93005; J7050; J7120; J2405

== ENCOUNTER 2019-05-11 20:46 | Emergency (ER) | payer MEDICARE, SELFPAY ==
[2019-01-07 06:54] VITALS: BMI 30.6
[2019-05-11 20:48] VITALS: BP 120/94; PULSE 108; RESP 16; TEMP 36.7; O2SAT 97; BMI 30.1
[2019-05-11 21:19] LABS: Bacteria 0 SEEN /hpf (None Seen)
[2019-05-11 21:20] LABS: Color, Urine Yellow (Yellow); Glucose, Dipstick Normal (Normal); Ketone-Dipstick 5 mg/dl (Negative); Leukocyte Esterase-Dipstick Negative /ul (Negative); Nitrite-Dipstick Negative (Negative); Occult Blood-Urine Negative /ul (Negative); Protein-Dipstick 30 mg/dl (Negative); Specific Gravity, Urine 1.025 (1.002-1.030); Urine Bilirubin Dipstick Negative (Negative); Urine Clarity Sl. Cloudy (Clear); Urine Urobilinogen Normal (Normal)
[2019-05-11 21:34] LABS: Hyaline Cast 0-5 SEEN /lpf (0-5); Mucous, Urine 1+ /hpf (<or=2+); Squamous Epithelial Cells - UA 0-5 SEEN /hpf (0-5); White Blood Cells 0-5 SEEN /hpf (0-5)
[2019-05-11 21:35] LABS: Red Blood Cells-Urine 0-5 SEEN /hpf (0-5)
[2019-05-11 21:37] LABS: Absolute Lymphocyte Count 3.94 X10^3/uL (0.83-4.51); Basophil# 0.04 X10^3/uL; Basophil% 0.4 % (0-1); Eosinophil# 0.16 X10^3/uL; Eosinophils% 1.5 % (0-5); Hematocrit 43.7 % (40-54); Hemoglobin 14.7 g/dL (13.0-16.5); Lymphocyte # 3.94 X10^3/ul (4.0); Lymphocyte % 36.3 % (19-41); Mean Corp Hgb Conc 33.6 g/dL (32-36); Mean Corpuscular Hgb 31.3 pg (27.0-32.0); Mean Platelet Vol. 10.1 fl (6.2-12.0); Monocyte# 0.72 X10^3/uL; Monocyte% 6.6 % (0-10); NRBC Flagged by Analyzer 0 % (0-5); Neutrophil # 5.97 X10^3/uL (2.7-7.7); Neutrophil % 54.9 % (47-70); Platelet Count 182 K/mm3 (150-450); RBC Distribution Width CV 13.3 % (11.6-14.6); RBC Distribution Width SD 45.6 fl (35.1-43.9); White Blood Count 10.9 K/mm3 (4.4-11.0)
[2019-05-11 21:39] LABS: Anion Gap 9 (5-15); BUN 21 mg/dL (7-18); BUN/Creat Ratio 15.4 RATIO (10-20); Calcium,Total 10.5 mg/dL (8.5-10.1); Chloride 109 mmol/L (98-107); Creatinine, Serum 1.36 mg/dL (0.70-1.30); EST Glomerular Filtration Rate 58 mL/min (>60); Est Glom Filt Rate - Afr Amer 70 mL/min (>60); Estimated Creatinine Clearance 64.11 ml/min; Glucose 176 mg/dL (74-106); Potassium 3.9 mmol/L (3.5-5.1); Sodium Level 142 mmol/L (136-145)
--- NOTE | 2019-05-11 21:43 | CT_ITS ---
HISTORY:RT SIDED ABDOMEN PAIN X 3 DAYSHX:DIABETES,GERD,HLD,HTN,PR,PANCRESTITISCHOLECYSTECTOMY 2 MONTHS AGO RT SIDED ABDOMEN PAIN X 3 DAYSHX:DIABETES,GERD,HLD,HTN,PR,PANCRESTITISCHOLECYSTECTOMY 2 MONTHS AGO TECHNIQUE: Helically acquired images were obtained of the abdomen and pelvis following IV contrast. A radiation dose optimization technique was used for this scan. IV Contrast dosage and agent:100ML Isovue 300 Oral contrast: None. COMPARISON: November 09, 2018 FINDINGS: # of images incl. paperwork: 425 LOWER CHEST: Dependent atelectasis in lung bases. The heart is not enlarged. No pericardial effusion LIVER: Diffuse hepatic steatosis. This was seen on the prior study. Hepatomegaly similar to prior study GALLBLADDER AND BILIARY TREE: The gallbladder is not visualized on today's study No intra- or extrahepatic biliary ductal dilation. KIDNEYS AND URETERS: Normal renal size and position. There is no hydronephrosis. ADRENAL GLANDS: Non-enlarged. SPLEEN: Normal size without focal cystic or solid mass. PANCREAS: No focal cystic or solid mass. BOWEL: Small hiatal hernia The small bowel is incompletely distended. No mechanical obstruction. No diverticuli are. Retained stool is seen within the ascending to the mid transverse colon The appendix is unremarkable LYMPH NODES: No enlarged mesenteric or retroperitoneal lymph nodes. PERITONEUM: No ascites or free air. No other fluid collection. VESSELS: Aorta is non-dilated. URINARY BLADDER: Incompletely distended, otherwise grossly unremarkable. REPRODUCTIVE ORGANS: The prostate gland is slightly heterogenous and there is approximately 5.7 x 4.2 cm ABDOMINAL WALL: No discrete abdominal or pelvic wall hernia observed. BONES: No lytic or blastic abnormality observed. CT/Abdomen/Pelvis W IV Cont ONLY IMPRESSION: Retained fecal material predominantly in the ascending to the mid transverse colon The appendix is unremarkable Dependent atelectasis in the lung bases Hepatomegaly and diffuse hepatic steatosis similar to prior study The gallbladder is not visualized on today's study Small hiatal Individualized dose optimization techniques were used for this CT. at 2320 Reported and signed by: Nae Pollard DO Electronically Signed: Nae Pollard DO at 23:19 EDT Tel , Service support ,
[2019-05-11] MEDS: Morphine 4 MG/ML Syringe 6 MG IV (22:01)
[2019-05-11] MEDS: Ondansetron 4 MG/2 ML Vial IV (22:01)
[2019-05-11] MEDS: 0.9% Normal Saline 1,000 ML 1000 ML IV (22:01)
[2019-05-11 22:33] LABS: AST(SGOT) 33 U/L (15-37); Alanine Aminotransfer ALT/SGPT 46 U/L (16-61); Albumin, Serum 4.8 g/dL (3.2-5.0); Alkaline Phosphatase 81 U/L (45-117); Bilirubin, Direct 0.16 mg/dL (0.00-0.30); Globulin 3.4 g/dL (2.2-4.2); Lipase 417 U/L (73-393); Protein, Total 8.2 g/dL (6.4-8.2)
[2019-05-11] MEDS: DiphenhydrAMINE 50 MG/ML Syringe 25 MG IV (22:47)
--- NOTE | 2019-05-11 23:33 | ED.VISSUMM ---
- ER Visit Summary Date of Service: 05/11/19 Chief Complaint: Right upper quadrant abdominal pain History of Present Illness: The patient is a 54 M history of diabetes, hypertension, CAD and renal insufficiency. Patient had a prior cholecystectomy about 2 months ago. States he was doing well he has had no recent nausea, vomiting or diarrhea. No constipation. No dysuria. Helped someone move the other day he was lifting carrying a lot of furniture and is unsure if he injured his abdominal wall. No fall or trauma. No fever. No dysuria. Physical Examination: Well-appearing middle-aged male. Vital signs are stable and afebrile. HEENT exam unremarkable. Neck nontender no lymphadenopathy. Lungs clear to auscultation bilaterally. Heart regular rhythm no murmur. Abdomen is soft. Nondistended. Normal bowel sounds. He is tender along the right upper quadrant and right side also right flank and right lower back. No ecchymosis or bruising. No peritoneal signs. Positive bowel sounds and soft. Left abdomen is nontender. Extremities moves all 4. Calves nontender. Neurologically is awake alert with no focal deficits. Test Results: CBC White count 10. Hemoglobin 14. No bands. Electrolytes unremarkable. Glucose 176. Creatinine of 1.3. Liver enzymes normal. Lipase slightly elevated at 417. But not consistent with pancreatitis. UA normal. No signs of infection or blood. CT abdomen pelvis shows status post cholecystectomy. Small hiatal hernia. Increased stool. Normal appendix. Emergency Department Course and Treatment: Repeat exam he is doing better after a liter normal saline, Zofran and morphine. And I went over all his test results. Clinically this appears to be abdominal and right flank strain. Treatment Plan: Tylenol Motrin for pain. Follow-up as needed. Disposition: Discharge to home Impression: Acute right-sided abdominal pain secondary to abdominal wall strain History of prior cholecystectomy This note was generated with [employer] dictation software. It may contain incorrect words, spelling, and punctuation that were not noted in review of the chart prior to signing ED Disposition - Plan for ED Patient: Referrals: Mame Schneider [Primary Care Provider] -
--- NOTE | 2019-05-11 23:36 | ED.DEP ---
ED Disposition - Plan for ED Patient: Disposition: Home or Assisted Living Instructions: ABDOMINAL PAIN, Unkown Cause, (Male) Referrals: Free Robel,Mame Chapman [Primary Care Provider] - 1 Week if not improving Additional Instructions: Work-up is negative. I suspect her pain is from an abdominal wall strain from moving. Ice to your abdominal wall and Motrin for pain. Also Tylenol. Follow-up if not improving return if feeling worse.
[2019-05-11 23:45] VITALS: BP 157/103; PULSE 86; O2SAT 96
== END 2019-05-11 23:49 | disposition home or self-care (01) ==
PROVIDERS: Emergency Provider Emergency Medicine
DX: S39.011A Strain of muscle, fascia and tendon of abdomen, initial encounter (principal); R10.11 Right upper quadrant pain; Z90.49 Acquired absence of other specified parts of digestive tract; K44.9 Diaphragmatic hernia without obstruction or gangrene; X50.9XXA Other and unspecified overexertion or strenuous movements or postures, initial encounter; Y93.9 Activity, unspecified; Y92.9 Unspecified place or not applicable; E11.9 Type 2 diabetes mellitus without complications; I10 Essential (primary) hypertension; I25.10 Atherosclerotic heart disease of native coronary artery without angina pectoris; N28.9 Disorder of kidney and ureter, unspecified; E78.00 Pure hypercholesterolemia, unspecified; Z79.82 Long term (current) use of aspirin; Z79.84 Long term (current) use of oral hypoglycemic drugs; Z79.4 Long term (current) use of insulin; Z79.899 Other long term (current) drug therapy
CPT/HCPCS: 74177; 80048; 80076; 81001; 83690; 85025; 96361; 96374; 96375; 99285; J7030; Q9967; A4216; J2405

== ENCOUNTER 2019-05-12 18:04 | Emergency (ER) | payer MEDICARE, SELFPAY ==
[2019-05-11 20:48] VITALS: BMI 30.1
[2019-05-12 18:05] VITALS: BP 164/103; PULSE 93; RESP 18; TEMP 36.8; O2SAT 98; BMI 30.7
--- NOTE | 2019-05-12 18:26 | ED.VIS.GEN ---
History of Present Illness Chief Complaint: Abd Pain Informant: Patient Onset: Days Context: Gradual Onset Current Severity: Moderate Maximum Severity: Moderate Narrative: Patient presents back with worsening abdominal pain. He was seen yesterday for the same. He had his gallbladder removed a couple months ago. Several days ago he was helping his neighbor move some furniture. He has had increased pain for the past couple of days. No vomiting or diarrhea. No fever. He was seen yesterday and work-up was unremarkable including CT. It is felt that he had an abdominal wall strain. He is taking naproxen but states pain is not controlled. Past Medical History - Allergies and Home Meds Allergies/Adverse Reactions: Allergies hydrocodone bitartrate [From Vicodin] Allergy (Verified 05/12/19 18:08) Angioedema lisinopril Allergy (Verified 05/12/19 18:08) Angioedema tramadol Allergy (Verified 05/12/19 18:08) Itching cyclobenzaprine Adverse Reaction (Severe, Verified 05/12/19 18:08) Skin crawling morphine Adverse Reaction (Verified 05/12/19 18:08) Itching Primary Care Physician: Mame Schneider [Primary Care Provider] - Prior records reviewed: Yes Past Medical History: - - Reviewed Surgical History: cholecystectomy Smoking Status: Former smoker Review of Systems General: Denies: Chills, Fever Eyes: Denies: Visual changes - bilaterally ENT: Denies: Bilateral ear pain Cardiovascular: Denies: Chest pain Respiratory: Denies: Dyspnea Gastrointestinal: Reports: Abdominal pain. Denies: Nausea, Vomiting, Diarrhea Genitourinary: Denies: Dysuria Musculoskeletal: Denies: Myalgias, Arthralgias Skin: Denies: Rash Neurological: Denies: Headache Hematologic: Denies: Easy bruising Allergy: Denies: Uticaria Physical Exam Vital Signs/Narrative: Vital Signs Temp Pulse Resp BP Pulse Ox 05/12/19 18:05 98.3 F 93 18 164/103 H 98 Inital Vital Signs reviewed: Yes General: Well nourished, Well developed Eyes: Perrl, EOMI ENT: Moist mucous membranes Neck: Supple Cardiovascular: Regular rate, Regular rhythm Respiratory: No distress, CTA bilaterally Abdomen: Soft, Tender - Tenderness palpation in the epigastrium and periumbilical region. No palpable masses. Hypoactive bowel sounds are present. Back: Nontender Extremities: Nontender Skin: Normal color, Rash Neurological: Alert Psychological: Normal affect Diagnostic/Tx/Re-eval Impressions Abdomen X-Ray 05/12/19 18:55 IMPRESSION: Nonobstructive bowel gas pattern. Retained stool is seen predominantly in the ascending and transverse colon at 1929 Reported and signed by: Nae Pollard DO Electronically Signed: Nae Pollard DO at 19:28 EDT Tel , Service support , 05/12/19 18:55 XRAY Abdomen [Abd Inc Decub and/or Erect] [RAD] Stat Laboratory Results 05/12/19 05/12/19 18:35 18:35 WBC 11.3 H RBC 4.71 Hgb 15.0 Hct 43.8 MCV 93.0 MCH 31.8 MCHC 34.2 RDW Std Deviation 44.6 H RDW Coeff of Armin 13.1 Plt Count 168 MPV 9.4 Immature Gran % (Auto) 0.400 Neut % (Auto) 64.5 Lymph % (Auto) 27.2 [place] % (Auto) 5.8 Eos % (Auto) 1.7 Baso % (Auto) 0.4 Absolute Neuts (auto) 7.3 Absolute Lymphs (auto) 3.08 Nucleated RBC % 0 Sodium 136 Potassium 3.5 Chloride 102 Carbon Dioxide 25.0 Anion Gap 9 BUN 14 Creatinine 1.22 Estim Creat Clear Calc 71.47 Est GFR (MDRD) Af Amer 80 Est GFR (MDRD) Non-Af 66 BUN/Creatinine Ratio 11.5 Glucose 200 H Calcium 9.4 Total Bilirubin 1.00 Direct Bilirubin 0.23 AST 41 H ALT 56 Alkaline Phosphatase 74 Total Protein 8.4 H Albumin 4.6 Globulin 3.8 Lipase 324 - Medical Decision Making Work-up from yesterday was reviewed. Patient was given oxycodone and a small dose of Benadryl as narcotics and to make him itchy. On repeat examination he does feel improved. Results are discussed with him. He does have quite a bit of stool up the ascending and transverse colon where he is describing most of his pain. He does not have a palpable hernia. Patient will be given Bentyl, magnesium citrate, and a few oxycodone for breakthrough pain only. ED Disposition - Plan for ED Patient: Disposition: Home or Assisted Living Diagnosis: Abdominal pain Instructions: ABDOMINAL PAIN, Unkown Cause, (Male) Prescriptions: Dicyclomine HCl [Bentyl] 20 mg PO TIDAC #20 capsule Magnesium Citrate [Citrate Of Magnesia] 150 ml PO Q6H PRN PRN #1 bottle PRN Reason: Constipation Oxycodone HCl/Acetaminophen [Percocet 5/325] 1 tablet PO Q6H PRN PRN 3 Days #6 tablet PRN Reason: Pain Referrals: [facility],Mame Chapman [Primary Care Provider] - 3-5 Days if not improving
[2019-05-12] MEDS: DiphenhydrAMINE 50 MG/ML Syringe 12.5 MG IV (18:40)
[2019-05-12] MEDS: oxyCODONE 5 MG Tablet 10 MG PO (18:42)
[2019-05-12 18:44] LABS: Absolute Lymphocyte Count 3.08 X10^3/uL (0.83-4.51); Absolute Neutrophil Count 7.3 X10^3/uL (2.0-7.7); Basophil# 0.04 X10^3/uL; Basophil% 0.4 % (0-1); Eosinophil# 0.19 X10^3/uL; Eosinophils% 1.7 % (0-5); Hematocrit 43.8 % (40-54); Lymphocyte # 3.08 X10^3/ul (4.0); Lymphocyte % 27.2 % (19-41); Mean Corp Hgb Conc 34.2 g/dL (32-36); Mean Corpuscular Hgb 31.8 pg (27.0-32.0); Mean Platelet Vol. 9.4 fl (6.2-12.0); Monocyte# 0.66 X10^3/uL; Monocyte% 5.8 % (0-10); NRBC Flagged by Analyzer 0 % (0-5); Neutrophil # 7.32 X10^3/uL (2.7-7.7); Neutrophil % 64.5 % (47-70); Platelet Count 168 K/mm3 (150-450); RBC Distribution Width CV 13.1 % (11.6-14.6); RBC Distribution Width SD 44.6 fl (35.1-43.9); Red Blood Count 4.71 M/mm3 (4.6-6.2); White Blood Count 11.3 K/mm3 (4.4-11.0)
--- NOTE | 2019-05-12 18:55 | RAD_ITS ---
HISTORY:abdominal pain. hx of gal bladder removal 4 months ago abdominal pain. hx of gal bladder removal 4 months ago EXAMINATION/TECHNIQUE: XR Abdomen W/ Decub and/or Erect Views: COMPARISON: March 02, 2018 FINDINGS: LINES AND TUBES: None. BOWEL GAS PATTERN: Non-obstructive. No bowel or stomach distention. Retained stool is seen probably in the ascending and transverse colon. FREE AIR: None visualized. ORGANOMEGALY: Not seen. CALCIFICATIONS: Vascular calcifications are seen within the pelvis LOWER CHEST: No acute pathology. BONES AND SOFT TISSUES: No acute pathology. RAD/Abd Inc Decub and/or Erect IMPRESSION: Nonobstructive bowel gas pattern. Retained stool is seen predominantly in the ascending and transverse colon at 1929 Reported and signed by: Nae Pollard DO Electronically Signed: Nae Pollard DO at 19:28 EDT Tel , Service support ,
[2019-05-12 18:59] LABS: AST(SGOT) 41 U/L (15-37); Alanine Aminotransfer ALT/SGPT 56 U/L (16-61); Albumin, Serum 4.6 g/dL (3.2-5.0); Alkaline Phosphatase 74 U/L (45-117); Anion Gap 9 (5-15); BUN 14 mg/dL (7-18); BUN/Creat Ratio 11.5 RATIO (10-20); Bilirubin, Direct 0.23 mg/dL (0.00-0.30); Calcium,Total 9.4 mg/dL (8.5-10.1); Chloride 102 mmol/L (98-107); Creatinine, Serum 1.22 mg/dL (0.70-1.30); EST Glomerular Filtration Rate 66 mL/min (>60); Est Glom Filt Rate - Afr Amer 80 mL/min (>60); Estimated Creatinine Clearance 71.47 ml/min; Globulin 3.8 g/dL (2.2-4.2); Glucose 200 mg/dL (74-106); Lipase 324 U/L (73-393); Potassium 3.5 mmol/L (3.5-5.1); Protein, Total 8.4 g/dL (6.4-8.2); Sodium Level 136 mmol/L (136-145)
[2019-05-12 20:17] VITALS: BP 170/83; PULSE 95; RESP 16; O2SAT 96
== END 2019-05-12 20:26 | disposition home or self-care (01) ==
PROVIDERS: Emergency Provider Emergency Medicine
DX: R10.9 Unspecified abdominal pain (principal); Z90.49 Acquired absence of other specified parts of digestive tract; Z87.891 Personal history of nicotine dependence
CPT/HCPCS: 74019; 80048; 80076; 83690; 85025; 96374; 99285; A4216

== ENCOUNTER 2019-06-07 05:36 | Observation (INO) | payer MEDICARE, SELFPAY ==
[2019-06-07] VITALS (7 sets, daily range): BP systolic 96–153; BP diastolic 77–98; PULSE 75–135; RESP 16–22; TEMP 36.5–36.8; O2SAT 96–99; BMI 29.0; BMI 28.8
--- NOTE | 2019-06-07 05:52 | ED.DCSUM_ITS ---
History of Present Illness Chief Complaint: GI Bleed Narrative: This patient is a 54-year-old male who presents with lower GI bleed. Over the past 4 days he has had bright red blood with bowel movements. He reports that he has noted darker blood with dime size clots on the toilet tissue. He denies any abdominal pain. He is not anticoagulated. He has been prescribed naproxen but has not been taking this recently. He denies history of liver disease or any known coagulopathies. He reports occasional alcohol use. He states he is not a daily drinker. 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 He denies chest pain, shortness of breath, lightheaded or dizziness. Past Medical History - Allergies and Home Meds Allergies/Adverse Reactions: Allergies hydrocodone bitartrate [From Vicodin] Allergy (Verified 06/07/19 05:41) Angioedema lisinopril Allergy (Verified 06/07/19 05:41) Angioedema tramadol Allergy (Verified 06/07/19 05:41) Itching cyclobenzaprine Adverse Reaction (Severe, Verified 06/07/19 05:41) Skin crawling morphine Adverse Reaction (Verified 06/07/19 05:41) Itching Primary Care Physician: Mame Schneider [Primary Care Provider] - Past Medical History: - - Diabetes, hypertension, hyperlipidemia Surgical History: cholecystectomy Smoking Status: Former smoker Review of Systems All systems negative except as indicated General: Denies: Fever Cardiovascular: Denies: Chest pain Respiratory: Denies: Dyspnea Gastrointestinal: Reports: Hematochezia. Denies: Abdominal pain, Nausea, Vomiting Physical Exam Vital Signs/Narrative: Vital Signs Temp Pulse Resp BP Pulse Ox 06/07/19 05:37 97.7 F L 135 H 18 139/93 H 98 Inital Vital Signs reviewed: Yes General: Well nourished Head: Normocephalic Eyes: EOMI ENT: Moist mucous membranes Neck: Supple Cardiovascular: - - Heart is regular tachycardia Respiratory: No distress, CTA bilaterally Abdomen: Soft, Nontender, Nondistended Rectal: Nontender Skin: Normal color Neurological: Alert Psychological: Normal affect Diagnostic/Tx/Re-eval 06/07/19 05:50 Stool Stool Occult Blood (OVI) - Final Occult Blood Positive Laboratory Results 06/07/19 06/07/19 05:45 05:45 WBC 12.0 H RBC 4.61 Hgb 14.7 Hct 43.2 MCV 93.7 MCH 31.9 MCHC 34.0 RDW Std Deviation 45.4 H RDW Coeff of Armin 13.3 Plt Count 199 MPV 10.0 Immature Gran % (Auto) 0.300 Neut % (Auto) 58.6 Lymph % (Auto) 33.1 [place] % (Auto) 6.2 Eos % (Auto) 1.4 Baso % (Auto) 0.4 Absolute Neuts (auto) 7.0 Absolute Lymphs (auto) 3.98 Nucleated RBC % 0 Sodium 141 Potassium 3.8 Chloride 106 Carbon Dioxide 24.0 Anion Gap 11 BUN 16 Creatinine 1.47 H Estim Creat Clear Calc 61.18 Est GFR (MDRD) Af Amer 64 Est GFR (MDRD) Non-Af 53 L BUN/Creatinine Ratio 10.9 Glucose 223 H Calcium 9.7 Total Bilirubin 0.60 AST 23 ALT 43 Alkaline Phosphatase 81 Total Protein 8.3 H Albumin 4.3 Globulin 4.0 Albumin/Globulin Ratio 1.1 - Medical Decision Making Laboratory studies essentially unremarkable as above. INR pending. Hemoccult was positive. Orthostatic vital signs were negative although he was baseline tachycardic. I do feel he will need admission for monitoring of his hemoglobin low and likely endoscopy. Patient will be discussed with hospitalist and admitted. ED Disposition - Plan for ED Patient: Disposition: Acute Care Hospital [facility] Diagnosis: GI bleed Referrals: Nissa Huston,Mame Chapman [Primary Care Provider] -
[2019-06-07] MEDS: 0.9% Normal Saline 1,000 ML 999 ML IV (05:59)
[2019-06-07 06:07] LABS: Absolute Lymphocyte Count 3.98 X10^3/uL (0.83-4.51); Basophil# 0.05 X10^3/uL; Basophil% 0.4 % (0-1); Eosinophil# 0.17 X10^3/uL; Eosinophils% 1.4 % (0-5); Hematocrit 43.2 % (40-54); Hemoglobin 14.7 g/dL (13.0-16.5); Lymphocyte # 3.98 X10^3/ul (4.0); Lymphocyte % 33.1 % (19-41); Mean Corpuscular Hgb 31.9 pg (27.0-32.0); Mean Corpuscular Volume 93.7 fL (80-94); Monocyte# 0.75 X10^3/uL; Monocyte% 6.2 % (0-10); NRBC Flagged by Analyzer 0 % (0-5); Neutrophil # 7.04 X10^3/uL (2.7-7.7); Neutrophil % 58.6 % (47-70); Platelet Count 199 K/mm3 (150-450); RBC Distribution Width CV 13.3 % (11.6-14.6); RBC Distribution Width SD 45.4 fl (35.1-43.9); Red Blood Count 4.61 M/mm3 (4.6-6.2)
[2019-06-07 06:16] LABS: Prothrombin Time (Protime)PT. 12.9 SECONDS (11.7-14.9)
[2019-06-07 06:28] LABS: ALB/GLOB Ratio 1.1 RATIO (0.9-2.4); AST(SGOT) 23 U/L (15-37); Alanine Aminotransfer ALT/SGPT 43 U/L (16-61); Albumin, Serum 4.3 g/dL (3.2-5.0); Alkaline Phosphatase 81 U/L (45-117); Anion Gap 11 (5-15); BUN 16 mg/dL (7-18); BUN/Creat Ratio 10.9 RATIO (10-20); Calcium,Total 9.7 mg/dL (8.5-10.1); Chloride 106 mmol/L (98-107); Creatinine, Serum 1.47 mg/dL (0.70-1.30); EST Glomerular Filtration Rate 53 mL/min (>60); Est Glom Filt Rate - Afr Amer 64 mL/min (>60); Estimated Creatinine Clearance 61.18 ml/min; Glucose 223 mg/dL (74-106); Potassium 3.8 mmol/L (3.5-5.1); Protein, Total 8.3 g/dL (6.4-8.2); Sodium Level 141 mmol/L (136-145)
--- NOTE | 2019-06-07 07:16 | PCM.HP.STD ---
Problem List (1) Hematochezia Status: Acute (2) Coronary artery disease Status: Chronic Comment: non-obstructive (3) Hyperlipidemia Status: Acute (4) Lower GI bleeding Status: Acute (5) Seizure disorder Status: Acute (6) Essential (primary) hypertension Status: Chronic (7) Hypomagnesemia Status: Chronic (8) Diabetes mellitus type 2 in nonobese Status: Chronic (9) PTSD (post-traumatic stress disorder) Status: Chronic (10) Glaucoma Status: Chronic History of Present Illness Date of Admission: 06/07/19 Chief Complaint: bright red blood per rectum The patient is a 54 year old M with a past medical history of nonobstructive coronary artery disease, HTN, HLD, former smoking hx, DM II, PTSD, chronic ulcer and glaucoma who presented to the ED at [facility] on 06/07/2019 complaining of bright red blood per rectum for the preceding 4 days with occasional dime size clots. He denied nausea, vomiting, lightheadedness, palpitations, chest pain. He had abdominal cramping prior to bowel movements and told me that he had to bear down to have bowel movements. He had never had a colonoscopy. There was no family history of colon cancer. He denied weight loss. Vital signs at presentation to the emergency room were temperature 97.7, pulse rate 135, pressure 139/93, respiratory rate 18 and he was 98% saturated on room air. 1 hour later following a fluid bolus his pulse rate was 95. White blood cell count was 12.0 and the hemoglobin was 14.7 with normochromic normocytic indices. Lately count was within normal limits. PT was normal at 12.9. BMP was remarkable for an elevated creatinine at 1.47 with a BUN of 16. Creatinine on 05/12/2019 was 1.22. LFTs were within normal limits. Random blood sugar was 223. He told me that his recent hemoglobin A1c was less than 7. He is being admitted to the hospital with a diagnosis of lower GI bleed. Past Medical History Past Medical History (Chronic Problems): Chronic Problems (Last Reviewed 06/07/19 @ 07:33 by Angela Leo DO) Coronary artery disease (Chronic) non-obstructive Hypomagnesemia (Chronic) Diabetes mellitus type 2 in nonobese (Chronic) PTSD (post-traumatic stress disorder) (Chronic) Glaucoma (Chronic) Essential (primary) hypertension (Chronic) Medical History: Medical History (Last Reviewed 06/07/19 @ 07:33 by Angela Leo DO) Essential (primary) hypertension (Chronic) I10 Anxiety and depression F41.9, F32.9 Gastric ulcer K25.9 Glaucoma H40.9 PTSD (post-traumatic stress disorder) F43.10 Pancreatitis K85.90 Type 2 diabetes mellitus E11.9 Allergies hydrocodone bitartrate [From Vicodin] Allergy (Verified 06/07/19 05:41) Angioedema lisinopril Allergy (Verified 06/07/19 05:41) Angioedema tramadol Allergy (Verified 06/07/19 05:41) Itching cyclobenzaprine Adverse Reaction (Severe, Verified 06/07/19 05:41) Skin crawling morphine Adverse Reaction (Verified 06/07/19 05:41) Itching Home Medications: Ambulatory Orders Medication Instructions Recorded Nitroglycerin (INPATIENT USE) 0.4 mg SUBLINGUAL Q5M PRN 07/15/13 [Nitrostat] metFORMIN HCl [Glucophage] 500 mg PO BID 11/28/13 Loratadine 10 mg PO DAILY 06/01/17 [place]-3S/Dha/Epa/Fish Oil [Fish 1 ea PO DAILY 06/01/17 Oil 1,200 mg Softgel] latanoprost 0.005 % eye drops 1 applic OPHTHALMIC PRN PRN 28 12/05/17 Days #3 hydrochlorothiazide 25 mg tablet 25 mg PO DAILY #30 tab 05/16/18 amitriptyline 25 mg tablet 25 mg PO DAILY 07/03/18 pravastatin 20 mg tablet 20 mg PO DAILY #90 tab 10/07/18 pravastatin 40 mg tablet 40 mg PO DAILY #90 tab 10/07/18 Cholecalciferol (Vitamin D3) 1 cap PO DAILY 11/09/18 [Vitamin D3] Levetiracetam [Keppra] 250 mg PO BID 11/09/18 amlodipine 5 mg tablet 5 mg PO DAILY #30 tab 04/16/19 aspirin 81 mg chewable tablet 81 mg PO DAILY@0800 #30 tab 04/16/19 losartan 50 mg tablet 50 mg PO DAILY #30 tab 04/16/19 magnesium oxide 400 mg (241.3 mg 400 mg PO BID #60 tab 04/16/19 magnesium) tablet Fluticasone 0.05% [Flonase Nasal 2 spray NASAL DAILY 06/07/19 [place]] Insulin Glargine,Hum.rec.anlog 6 unit SUBCUT QHS 06/07/19 [Yonis Loweryjean U-100] Pantoprazole Sodium [Protonix] 40 mg PO DAILY 06/07/19 Surgical History: Surgical History (Last Reviewed 07/03/18 @ 11:42 by Des Corrales MD) History of left heart catheterization Onset Date: 10/31/11 Z98.890 Surgical History: cholecystectomy Psychiatric History: Post traumatic stress Lives: Alone Smoking Status: Former smoker Tobacco Use: Non-smoker Alcohol: Occasional - 2-3 beers a few times a week Drugs: None - *Family History Maternal Family History: Family History (Last Reviewed 07/03/18 @ 11:42 by Des Corrales MD) Mother Heart disease History Items: Heart Disease Paternal Family History: Family History (Last Reviewed 07/03/18 @ 11:42 by Des Corrales MD) Mother Heart disease History Items: Cancer Sibling Family History: Family History (Last Reviewed 07/03/18 @ 11:42 by Des Corrales MD) Mother Heart disease History Items: Cancer - Sister with breast cancer, brother with prostate cancer Review of Systems Constitutional: Denies: Chills, Fever, Weight Change HEENT: Denies: Head Aches, Sinus Congestion, Sinus Drainage Cardiovascular: Denies: Chest Pain, Light Headedness, Palpitations, Syncope Respiratory: Denies: Cough, Shortness of Breath, Shortness of breath at rest, Sputum production Gastrointestinal: Reports: Abdominal Pain - occasional crampy abdominal pain that resolves after BM, Constipation, Hematochezia. Denies: Diarrhea, Dyspepsia, Hematemesis, Nausea, Vomiting Genitourinary: Denies: Dysuria Musculoskeletal: Reports: Leg Pain - with walking that goes away with sitting roe or stopping for a short time. Denies: Joint Pain, Joint Tenderness Skin: Denies: Rash, Wounds Neurological: Denies: Numbness, Tingling, Focal weakness Psychiatric: Denies: Anxiety, Depression, Homicidal Ideations, Suicidal Ideations Endocrine: Denies: Hx of Irradiation, Hx of Thyroiditis Hematologic/ Lymphatic: Denies: Easy Bruising, Easy Bleeding, Hx of blood clot VTE Information - Inpt Only VTE Present on Admission: No VTE Mechan Device Prophylaxis: None Reason prophylaxis not ordered:: Treatment Not Indicated - low risk and he is ambulatory - Physical Exam General: Alert, Oriented x3, Cooperative, No apparent distress, Well developed, Well nourished HEENT: Atraumatic, PERRLA, EOMI, Normocephalic Oral: No Gingival or Mucosal Lesions/ Ulcerations, Dry Mucosa Neck: Supple, No JVD, Negative Carotid Bruits, No Nodes, Trachea Midline Lungs: Clear to auscultation, Normal air movement Cardiovascular: Regular rate, Regular Rhythm, Normal S1, Normal S2, No murmurs, No Ectopic Activity, No rub noted, No Gallop Abdomen: Bowel Sounds Present - not hyperactive, Soft, Non Tender, Non-Distended Extremities: No clubbing, No cyanosis, No edema, Capillary Refill Less than 3 Seconds Skin: No rashes, No breakdown Musculoskeletal: No Tenderness to Palpation of Joints or Extremities, No Muscle Wasting Neurological: Cranial nerves II-XII grossly intact, Neuro grossly intact Psych/Mental Status: Normal Affect, Appropriate Vital Signs Temp Pulse Resp BP Pulse Ox 97.7 F L 95 18 122/88 H 96 06/07/19 05:37 06/07/19 06:37 06/07/19 06:37 06/07/19 06:37 06/07/19 06:37 Oxygen Delivery Method Room Air Weight: 208 lb 1.862 oz Body Mass Index (BMI) 29.0 Finger Stick Blood Glucose 152 Microbiology Past 72 Hours 06/07/19 05:50 Stool Occult Blood (OVI) - Final Stool Occult Blood Positive Laboratory Tests Past 24 Hrs 06/07/19 06/07/19 06/07/19 05:45 05:45 05:45 WBC 12.0 H RBC 4.61 Hgb 14.7 Hct 43.2 MCV 93.7 MCH 31.9 MCHC 34.0 RDW Std Deviation 45.4 H RDW Coeff of Armin 13.3 Plt Count 199 MPV 10.0 Immature Gran % (Auto) 0.300 Neut % (Auto) 58.6 Lymph % (Auto) 33.1 [place] % (Auto) 6.2 Eos % (Auto) 1.4 Baso % (Auto) 0.4 Absolute Neuts (auto) 7.0 Absolute Lymphs (auto) 3.98 Nucleated RBC % 0 PT 12.9 INR 1.0 Sodium 141 Potassium 3.8 Chloride 106 Carbon Dioxide 24.0 Anion Gap 11 BUN 16 Creatinine 1.47 H Estim Creat Clear Calc 61.18 Est GFR (MDRD) Af Amer 64 Est GFR (MDRD) Non-Af 53 L BUN/Creatinine Ratio 10.9 Glucose 223 H Calcium 9.7 Total Bilirubin 0.60 AST 23 ALT 43 Alkaline Phosphatase 81 Total Protein 8.3 H Albumin 4.3 Globulin 4.0 Albumin/Globulin Ratio 1.1 Blood Type Antibody Screen 06/07/19 05:45 WBC RBC Hgb Hct MCV MCH MCHC RDW Std Deviation RDW Coeff of Armin Plt Count MPV Immature Gran % (Auto) Neut % (Auto) Lymph % (Auto) [place] % (Auto) Eos % (Auto) Baso % (Auto) Absolute Neuts (auto) Absolute Lymphs (auto) Nucleated RBC % PT INR Sodium Potassium Chloride Carbon Dioxide Anion Gap BUN Creatinine Estim Creat Clear Calc Est GFR (MDRD) Af Amer Est GFR (MDRD) Non-Af BUN/Creatinine Ratio Glucose Calcium Total Bilirubin AST ALT Alkaline Phosphatase Total Protein Albumin Globulin Albumin/Globulin Ratio Blood Type O POSITIVE Antibody Screen NEGATIVE Assessment/Plan All Active Problems (Last Reviewed 06/07/19 @ 07:33 by Angela Leo DO) Hematochezia (Acute) Hyperlipidemia (Acute) Lower GI bleeding (Acute) Seizure disorder (Acute) Displacement of cervical intervertebral disc without myelopathy (Resolved) Syncope (Resolved) Tobacco dependence syndrome (Resolved) Impressions 1. lower GI bleed - Q6H HH. Blood typed and screened. Continue Protonix. Clear liquid diet. Consult Dr. Steen for endoscopy. Repeat orthostatics in the AM. 2. HTN - continue home meds. Hold the HCTZ due to dehydration and tachycardia. 3. Dehydration with ST - resolved with hydration. Hold the HCTZ and continue IV fluids. 4. non-obstructive CAD - continue home meds. Has appt with Dr. Corrales in June. 5. DM II/HTN/HLD/PTSD - continue home meds. Hold the metformin in the event that Dr. Steen may want a CT abdomen with contrast. 6. No DVT prophylaxis needed. He is low risk, ambulatory and is having a lower GI bleed Code Visit OBSV E&M: [id number] Initial observation care L2
--- NOTE | 2019-06-07 07:40 | NURSING ---
Pt was brought from ER to inpatient room 322 at 0710. Pt was not in the computer until 0730.
[2019-06-07 08:19] LABS: Hematocrit 41.1 % (40-54); Hemoglobin 13.7 g/dL (13.0-16.5)
[2019-06-07 08:28] LABS: Magnesium 1.6 mg/dL (1.6-2.6)
[2019-06-07] MEDS: 0.9% Normal Saline 1,000 ML 100 ML IV ×2 (08:35→18:13)
[2019-06-07 08:45] LABS: Bedside Glucose 211 mg/dL (70-110)
[2019-06-07 08:56] LABS: Hemoglobin A1c 6.9 % (4.2-6.3)
[2019-06-07] MEDS: Loratadine 10 MG Tablet PO (10:46)
[2019-06-07] MEDS: Losartan Potassium 50 MG Tablet PO (10:46)
[2019-06-07] MEDS: Aspirin 81 MG TAB.CHEW PO (10:46)
[2019-06-07] MEDS: Amitriptyline 25 MG Tablet PO (10:47)
[2019-06-07] MEDS: Fluticasone 0.05% 1 SPRAY NASAL.SRY 2 SPRAY NASAL (10:47)
[2019-06-07] MEDS: levETIRAcetam 250 MG Tablet PO ×2 (10:48→22:11)
[2019-06-07] MEDS: Magnesium Oxide 400 MG Tablet PO ×2 (10:49→22:11)
[2019-06-07] MEDS: Pantoprazole Sodium 40 MG Tablet PO (10:49)
[2019-06-07] MEDS: amLODIPine 5 MG Tablet PO (10:49)
[2019-06-07 13:57] LABS: Hematocrit 38.8 % (40-54); Hemoglobin 12.6 g/dL (13.0-16.5)
[2019-06-07 15:31] LABS: Bedside Glucose 136 mg/dL (70-110)
[2019-06-07] MEDS: Electrolyte Solution/Peg's 4000 ML PO (16:51)
--- NOTE | 2019-06-07 20:17 | PCM.CONS.GEN ---
Reason for Consult Date of Consultation: 06/07/19 Reason for Consultation: hematochezia History of Present Illness: The patient is a 54 year old M who presents with a four-day history of the rectum and occasional blood clots. The patient denies abdominal pain. He denies nausea, vomiting, lightheadedness, palpitations or chest pain. He noted some abdominal cramping and a feeling of tenesmus. He denies melena. He denies any true abdominal pain. She presented to [facility] with the above complaints. He was found to have a hemoglobin of 14.7 with normochromic normocytic indices. In the emergency department the patient was found to be tachycardic. He was given a fluid bolus and his heart rate returned to 90. Patient is a past history is for her nonobstructive coronary disease, previous myocardial infarction, hypertension, hyperlipidemia, former smoking, diabetes, PTSD, and glaucoma. Past Medical History Past Medical History (Chronic Problems): Chronic Problems (Last Reviewed 06/07/19 @ 07:33 by Angela Leo DO) Coronary artery disease (Chronic) non-obstructive Hypomagnesemia (Chronic) Diabetes mellitus type 2 in nonobese (Chronic) PTSD (post-traumatic stress disorder) (Chronic) Glaucoma (Chronic) Essential (primary) hypertension (Chronic) Medical History: Medical History (Last Reviewed 06/07/19 @ 07:33 by Angela Leo DO) Essential (primary) hypertension (Chronic) I10 Anxiety and depression F41.9, F32.9 Gastric ulcer K25.9 Glaucoma H40.9 PTSD (post-traumatic stress disorder) F43.10 Pancreatitis K85.90 Type 2 diabetes mellitus E11.9 Allergies hydrocodone bitartrate [From Vicodin] Allergy (Verified 06/07/19 05:41) Angioedema lisinopril Allergy (Verified 06/07/19 05:41) Angioedema tramadol Allergy (Verified 06/07/19 05:41) Itching cyclobenzaprine Adverse Reaction (Severe, Verified 06/07/19 05:41) Skin crawling morphine Adverse Reaction (Verified 06/07/19 05:41) Itching Home Medications: Ambulatory Orders Medication Instructions Recorded Nitroglycerin (INPATIENT USE) 0.4 mg SUBLINGUAL Q5M PRN 07/15/13 [Nitrostat] metFORMIN HCl [Glucophage] 500 mg PO BID 11/28/13 Loratadine 10 mg PO DAILY 06/01/17 [place]-3S/Dha/Epa/Fish Oil [Fish 1 ea PO DAILY 06/01/17 Oil 1,200 mg Softgel] latanoprost 0.005 % eye drops 1 applic EACH EYE QHS 28 Days #3 12/05/17 hydrochlorothiazide 25 mg tablet 25 mg PO DAILY #30 tab 05/16/18 amitriptyline 25 mg tablet 25 mg PO DAILY 07/03/18 pravastatin 20 mg tablet 20 mg PO DAILY #90 tab 10/07/18 pravastatin 40 mg tablet 40 mg PO DAILY #90 tab 10/07/18 Cholecalciferol (Vitamin D3) 1 cap PO DAILY 11/09/18 [Vitamin D3] Levetiracetam [Keppra] 250 mg PO BID 11/09/18 amlodipine 5 mg tablet 5 mg PO DAILY #30 tab 04/16/19 aspirin 81 mg chewable tablet 81 mg PO DAILY@0800 #30 tab 04/16/19 losartan 50 mg tablet 50 mg PO DAILY #30 tab 04/16/19 magnesium oxide 400 mg (241.3 mg 400 mg PO BID #60 tab 04/16/19 magnesium) tablet Fluticasone 0.05% [Flonase Nasal 2 spray NASAL DAILY 06/07/19 [place]] Insulin Glargine,Hum.rec.anlog 6 unit SUBCUT QHS 06/07/19 [Basaglar Kwikpen U-100] Pantoprazole Sodium [Protonix] 40 mg PO DAILY 06/07/19 Surgical History: Surgical History (Last Reviewed 07/03/18 @ 11:42 by Des Corrales MD) History of left heart catheterization Onset Date: 10/31/11 Z98.890 Surgical History: cholecystectomy Psychiatric History: Post traumatic stress Lives: Alone Smoking Status: Former smoker Tobacco Use: Non-smoker Alcohol: Occasional - 2-3 beers a few times a week Drugs: None - *Family History Maternal Family History: Family History (Last Reviewed 07/03/18 @ 11:42 by Des Corrales MD) Mother Heart disease History Items: Heart Disease Paternal Family History: Family History (Last Reviewed 07/03/18 @ 11:42 by Des Corrales MD) Mother Heart disease History Items: Cancer Sibling Family History: Family History (Last Reviewed 07/03/18 @ 11:42 by Des Corrales MD) Mother Heart disease History Items: Cancer - Sister with breast cancer, brother with prostate cancer Review of Systems Constitutional: Denies: Chills, Fever, Weight Change HEENT: Denies: Head Aches, Sinus Congestion, Sinus Drainage Cardiovascular: Denies: Chest Pain, Palpitations Respiratory: Denies: Cough, Shortness of breath at rest, Sputum production Gastrointestinal: Reports: Hematochezia. Denies: Abdominal Pain, Nausea, Melena, Vomiting Genitourinary: Denies: Dysuria Musculoskeletal: Reports: Leg Pain. Denies: Joint Pain, Joint Tenderness Skin: Denies: Rash, Wounds Neurological: Denies: Numbness, Tingling, Focal weakness Psychiatric: Denies: Anxiety, Depression, Homicidal Ideations, Suicidal Ideations Hematologic/ Lymphatic: Denies: Easy Bruising, Easy Bleeding - Physical Exam General: Alert, Oriented x3, Cooperative Neck: Supple, No JVD, Negative Carotid Bruits Lungs: Clear to auscultation, Normal air movement Cardiovascular: Regular rate, No murmurs Abdomen: Bowel Sounds Present, Soft, Non Tender Vital Signs Temp Pulse Resp BP Pulse Ox 98.2 F 76 16 153/93 H 97 06/07/19 19:35 06/07/19 19:35 06/07/19 19:35 06/07/19 19:35 06/07/19 19:35 Oxygen Delivery Method Room Air Weight: 93.7 kg Body Mass Index (BMI) 28.8 Finger Stick Blood Glucose 152 Intake and Output for Last 24 Hours 06/05/19 06/06/19 06/07/19 23:59 23:59 23:59 Intake Total / 1962.33 Balance / 1962. Microbiology Past 72 Hours 06/07/19 05:50 Stool Occult Blood (OVI) - Final Stool Occult Blood Positive Laboratory Tests Past 24 Hrs 06/07/19 06/07/19 06/07/19 05:45 05:45 05:45 WBC 12.0 H RBC 4.61 Hgb 14.7 Hct 43.2 MCV 93.7 MCH 31.9 MCHC 34.0 RDW Std Deviation 45.4 H RDW Coeff of Armin 13.3 Plt Count 199 MPV 10.0 Immature Gran % (Auto) 0.300 Neut % (Auto) 58.6 Lymph % (Auto) 33.1 [place] % (Auto) 6.2 Eos % (Auto) 1.4 Baso % (Auto) 0.4 Absolute Neuts (auto) 7.0 Absolute Lymphs (auto) 3.98 Nucleated RBC % 0 PT 12.9 INR 1.0 Sodium 141 Potassium 3.8 Chloride 106 Carbon Dioxide 24.0 Anion Gap 11 BUN 16 Creatinine 1.47 H Estim Creat Clear Calc 61.18 Est GFR (MDRD) Af Amer 64 Est GFR (MDRD) Non-Af 53 L BUN/Creatinine Ratio 10.9 Glucose 223 H Hemoglobin A1c Calcium 9.7 Magnesium Total Bilirubin 0.60 AST 23 ALT 43 Alkaline Phosphatase 81 Total Protein 8.3 H Albumin 4.3 Globulin 4.0 Albumin/Globulin Ratio 1.1 Blood Type Antibody Screen 06/07/19 06/07/19 06/07/19 05:45 08:14 08:14 WBC RBC Hgb 13.7 Hct 41.1 MCV MCH MCHC RDW Std Deviation RDW Coeff of Armin Plt Count MPV Immature Gran % (Auto) Neut % (Auto) Lymph % (Auto) [place] % (Auto) Eos % (Auto) Baso % (Auto) Absolute Neuts (auto) Absolute Lymphs (auto) Nucleated RBC % PT INR Sodium Potassium Chloride Carbon Dioxide Anion Gap BUN Creatinine Estim Creat Clear Calc Est GFR (MDRD) Af Amer Est GFR (MDRD) Non-Af BUN/Creatinine Ratio Glucose Hemoglobin A1c 6.9 H Calcium Magnesium Total Bilirubin AST ALT Alkaline Phosphatase Total Protein Albumin Globulin Albumin/Globulin Ratio Blood Type O POSITIVE Antibody Screen NEGATIVE 06/07/19 06/07/19 06/07/19 08:14 13:50 20:10 WBC RBC Hgb 12.6 L Pending Hct 38.8 L Pending MCV MCH MCHC RDW Std Deviation RDW Coeff of Armin Plt Count MPV Immature Gran % (Auto) Neut % (Auto) Lymph % (Auto) [place] % (Auto) Eos % (Auto) Baso % (Auto) Absolute Neuts (auto) Absolute Lymphs (auto) Nucleated RBC % PT INR Sodium Potassium Chloride Carbon Dioxide Anion Gap BUN Creatinine Estim Creat Clear Calc Est GFR (MDRD) Af Amer Est GFR (MDRD) Non-Af BUN/Creatinine Ratio Glucose Hemoglobin A1c Calcium Magnesium 1.6 Total Bilirubin AST ALT Alkaline Phosphatase Total Protein Albumin Globulin Albumin/Globulin Ratio Blood Type Antibody Screen POC Glucose 06/07/19 06/07/19 15:21 08:37 POC Glucose 136 H 211 H Assessment/Plan All Active Problems (Last Reviewed 06/07/19 @ 07:33 by Angela Leo DO) Hematochezia (Acute) Hyperlipidemia (Acute) Lower GI bleeding (Acute) Seizure disorder (Acute) Displacement of cervical intervertebral disc without myelopathy (Resolved) Syncope (Resolved) Tobacco dependence syndrome (Resolved) hematochezia, likely lower GI bleed. I plan to perform lower endoscopy. The patient presented the risks, benefits, possible complications and alternatives and consents to the procedure. If lower GI demonstrates bleeding to the ileocecal valve I will then plan to perform upper endoscopy. the patient is currently type and screened. His hemoglobin has decreased initially from 14.7-12.6. the patient states he has a history of an IN but had he describes an unremarkable cardiac catheterization more recently. He no longer smokes. History of PTSD. He also has a seizure disorder. Medicine be following the patient for these issues.
[2019-06-07 20:23] LABS: Hematocrit 40.1 % (40-54); Hemoglobin 13.2 g/dL (13.0-16.5)
[2019-06-07] MEDS: Pravastatin 20 MG Tablet PO (22:10)
[2019-06-07] MEDS: Pravastatin 40 MG Tablet PO (22:11)
[2019-06-07] MEDS: Latanoprost 0.005% 1 Bottle 1 DRP EACH EYE (22:12)
[2019-06-07 22:56] LABS: Bedside Glucose 150 mg/dL (70-110)
[2019-06-08] VITALS (7 sets, daily range): BP systolic 105–137; BP diastolic 79–100; PULSE 71–87; RESP 16–18; TEMP 35.9–36.6; O2SAT 97–99; BMI 28.8
--- NOTE | 2019-06-08 02:30 | EKG12_ITS ---
Test Reason : PRE OP Blood Pressure : / mmHG Vent. Rate : 073 BPM Atrial Rate : 073 BPM P-R Int : 148 ms QRS Dur : 088 ms QT Int : 398 ms P-R-T Axes : 054 020 012 degrees QTc Int : 438 ms Normal sinus rhythm Nonspecific ST and T wave abnormality Abnormal ECG Confirmed by STEPHAN CADE, EUGENIO ([id number]), video effects editor YULY MONSIVAIS ([id number]) on 06/12/2019 2:30:54 PM Referred By: SANTO Confirmed By:EUGENIO ROTHMAN MD
[2019-06-08 06:15] LABS: Bedside Glucose 215 mg/dL (70-110)
[2019-06-08 07:07] LABS: Partial Thromboplast Time 25.8 Seconds (24.1-36.2)
[2019-06-08 07:13] LABS: Anion Gap 1 (5-15); BUN 8 mg/dL (7-18); BUN/Creat Ratio 7.7 RATIO (10-20); Calcium,Total 8.5 mg/dL (8.5-10.1); Chloride 109 mmol/L (98-107); Creatinine, Serum 1.04 mg/dL (0.70-1.30); EST Glomerular Filtration Rate 79 mL/min (>60); Est Glom Filt Rate - Afr Amer 96 mL/min (>60); Estimated Creatinine Clearance 86.48 ml/min; Glucose 200 mg/dL (74-106); Potassium 4.1 mmol/L (3.5-5.1); Sodium Level 138 mmol/L (136-145)
[2019-06-08] MEDS: Lactated Ringers 1,000 ML 100 ML IV (07:14)
--- NOTE | 2019-06-08 08:19 | OP.ENDO_ITS ---
06/08/2019 Mame Chapman [facility] Re : Colonoscopy procedure for Bronson Avendano [facility] This procedure was performed on Saturday, June 08, 2019. My impressions and recommendations are as follows: Impressions : - Hemorrhoids found on perianal exam. - The entire examined colon is normal. - The distal rectum and anal verge are normal on retroflexion view. - No specimens collected. Recommendations : - Discharge patient to home. - Resume previous diet. - Continue present medications. - Return to my office in 1 week. - Repeat colonoscopy PRN to check healing. My findings are described in the full procedure note, which is enclosed. If I can be of further assistance, please feel free to contact me at Doctor phone number(s): , Work: . Sincerely, Elmer Steen MD 06/08/2019 8:19:08 AM This report has been signed electronically.
[2019-06-08] MEDS: Losartan Potassium 50 MG Tablet PO (09:04)
[2019-06-08] MEDS: Magnesium Oxide 400 MG Tablet PO (09:04)
[2019-06-08] MEDS: levETIRAcetam 250 MG Tablet PO (09:04)
[2019-06-08] MEDS: Aspirin 81 MG TAB.CHEW PO (09:05)
[2019-06-08] MEDS: Pantoprazole Sodium 40 MG Tablet PO (09:05)
[2019-06-08] MEDS: Loratadine 10 MG Tablet PO (09:05)
[2019-06-08] MEDS: amLODIPine 5 MG Tablet PO (09:05)
[2019-06-08] MEDS: Fluticasone 0.05% 1 SPRAY NASAL.SRY 2 SPRAY NASAL (09:06)
--- NOTE | 2019-06-08 11:04 | DCINST_ITS ---
You will use the following diet at home:: Calorie/Carbohydrate Controlled (specify 1200, 1400, etc), Cardiac, High fiber Your food should be the consistency of: Regular Your liquids should be the consistency of: Regular/Thin Discharge Activity: Return to Normal Activity Call your doctor if you observe: Fever of 101 or Higher, Shortness of breath, Dizziness, Fainting spells, Swelling in the ankles, Chest pain Instructions: Treating Hemorrhoids: Self-Care, Hydrocortisone Acetate Rectal suppository, Eating a High Fiber Diet Additional Instructions: I am giving you a prescription for some rectal suppositories to help heal the hemorrhoids. Use 1 suppository twice a day for 3 days and then you can use 1 supoository 1-2 times a day as needed for bleeding from the rectum or rectal pain with BM's. The colon was normal.....you will not need a colonoscopy for another 10 years. I am also giving you a prescription for Miralax to take DAILY to keep the victor hugo soft. This is a stool softening agent that helps to pull water into the colon to keep the stool soft. Dr. Steen would like to see you in the office in 1 week. Pending Tests on Discharge: none Allergies/Adverse Reactions: Allergies hydrocodone bitartrate [From Vicodin] Allergy (Verified 06/07/19 05:41) Angioedema lisinopril Allergy (Verified 06/07/19 05:41) Angioedema tramadol Allergy (Verified 06/07/19 05:41) Itching cyclobenzaprine Adverse Reaction (Severe, Verified 06/07/19 05:41) Skin crawling morphine Adverse Reaction (Verified 06/07/19 05:41) Itching Medications to take at Discharge Nitroglycerin (INPATIENT USE) [Nitrostat] 0.4 mg SUBLINGUAL Q5M PRN 07/15/13 metFORMIN HCl [Glucophage] 500 mg PO BID 11/28/13 Loratadine 10 mg PO DAILY 06/01/17 [place]-3S/Dha/Epa/Fish Oil [Fish Oil 1,200 mg Softgel] 1 ea PO DAILY 06/01/17 latanoprost 0.005 % eye drops 1 applic EACH EYE QHS 28 Days #3 12/05/17 hydrochlorothiazide 25 mg tablet 25 mg PO DAILY #30 tab 05/16/18 amitriptyline 25 mg tablet 25 mg PO DAILY 07/03/18 pravastatin 20 mg tablet 20 mg PO DAILY #90 tab 10/07/18 pravastatin 40 mg tablet 40 mg PO DAILY #90 tab 10/07/18 Cholecalciferol (Vitamin D3) [Vitamin D3] 1 cap PO DAILY 11/09/18 Levetiracetam [Keppra] 250 mg PO BID 11/09/18 amlodipine 5 mg tablet 5 mg PO DAILY #30 tab 04/16/19 aspirin 81 mg chewable tablet 81 mg PO DAILY@0800 #30 tab 04/16/19 losartan 50 mg tablet 50 mg PO DAILY #30 tab 04/16/19 magnesium oxide 400 mg (241.3 mg magnesium) tablet 400 mg PO BID #60 tab 04/16/19 Fluticasone 0.05% [Flonase Nasal [place]] 2 spray NASAL DAILY 06/07/19 Insulin Glargine,Hum.rec.anlog [Basaglar Kwikpen U-100] 6 unit SUBCUT QHS 06/07/19 Pantoprazole Sodium [Protonix] 40 mg PO DAILY 06/07/19 Hydrocortisone [Anusol Hc] 25 mg RECTAL BID PRN PRN #20 suppos. 06/08/19 Polyethylene Glycol 3350 [Miralax] 17 gm PO DAILY #30 packet 06/08/19 The following prescriptions were given: Hydrocortisone [Anusol Hc] 25 mg RECTAL BID PRN PRN #20 suppos. PRN Reason: bleeding hemorrhoids/rectal pa Prescription Printed Polyethylene Glycol 3350 [Miralax] 17 gm PO DAILY #30 packet Transmission Status: Pending to [facility] Primary Care Physician: Mame Schneider [Primary Care Provider] - Test Results: Test results from this visit will be discussed in further detail at your follow- up appointment, if applicable. Please Follow Up With: Natasha Zamudio NP-C When: as needed Proposed Discharge Date: 06/08/19
--- NOTE | 2019-06-08 11:14 | DS.PCM_ITS ---
Discharge Date and Diagnosis - Problem List Patient Problems: Active and Suspected Problems (Last Reviewed 06/07/19 @ 07:33 by Angela Leo DO) Bleeding hemorrhoids (Acute) Date of Admission: 06/07/19 Date of Discharge: 06/08/19 - Primary Discharge Diagnosis Active and Suspected Problems (Last Reviewed 06/07/19 @ 07:33 by Angela Leo DO) Lower GI bleed Bleeding hemorrhoids (Acute) - Secondary Discharge Diagnosis Chronic Problems (Last Reviewed 06/07/19 @ 07:33 by Angela Leo DO) Constipation (Chronic) Coronary artery disease (Chronic) non-obstructive Hyperlipidemia (Chronic) Seizure disorder (Chronic) Hypomagnesemia (Chronic) Diabetes mellitus type 2 in nonobese (Chronic) PTSD (post-traumatic stress disorder) (Chronic) Glaucoma (Chronic) Essential (primary) hypertension (Chronic) Hospital Course and Treatment Imaging Results: Laboratory Results - last 24 hr 06/07/19 06/07/19 06/07/19 13:50 15:21 20:10 Hgb 12.6 L 13.2 Hct 38.8 L 40.1 APTT Sodium Potassium Chloride Carbon Dioxide Anion Gap BUN Creatinine Estim Creat Clear Calc Est GFR (MDRD) Af Amer Est GFR (MDRD) Non-Af BUN/Creatinine Ratio Glucose Hemoglobin A1c Calcium POC Glucose 136 H 06/07/19 06/08/19 06/08/19 22:06 06:01 06:50 Hgb Hct APTT Sodium 138 Potassium 4.1 Chloride 109 H Carbon Dioxide 28.0 Anion Gap 1 L BUN 8 Creatinine 1.04 Estim Creat Clear Calc 86.48 Est GFR (MDRD) Af Amer 96 Est GFR (MDRD) Non-Af 79 BUN/Creatinine Ratio 7.7 L Glucose 200 H Hemoglobin A1c Calcium 8.5 POC Glucose 150 H 215 H 06/08/19 06/08/19 06:50 06:50 Hgb Hct APTT 25.8 Sodium Potassium Chloride Carbon Dioxide Anion Gap BUN Creatinine Estim Creat Clear Calc Est GFR (MDRD) Af Amer Est GFR (MDRD) Non-Af BUN/Creatinine Ratio Glucose Hemoglobin A1c 7.0 H Calcium POC Glucose Colonoscopy: Impressions : - Hemorrhoids found on perianal exam. - The entire examined colon is normal. - The distal rectum and anal verge are normal on retroflexion view. - No specimens collected. Recommendations : - Discharge patient to home. - Resume previous diet. - Continue present medications. - Return to my office in 1 week. - Repeat colonoscopy PRN to check healing. Dr. Elmer Steen[facility] general surgery Operations: None Procedures: Colonoscopy Summary of Care Provided: The patient is a 54 year old M with a past medical history of nonobstructive coronary artery disease, HTN, HLD, former smoking hx, DM II, PTSD, chronic ulcer and glaucoma who presented to the ED at [facility] on 06/07/2019 complaining of bright red blood per rectum for the preceding 4 days with occasional dime size clots. He denied nausea, vomiting, lightheadedness, palpitations, chest pain. He had abdominal cramping prior to bowel movements and told me that he had to bear down to have bowel movements. He had never had a colonoscopy. There was no family history of colon cancer. He denied weight loss. Vital signs at presentation to the emergency room were temperature 97.7, pulse rate 135, pressure 139/93, respiratory rate 18 and he was 98% saturated on room air. 1 hour later following a fluid bolus his pulse rate was 95. White blood cell count was 12.0 and the hemoglobin was 14.7 with normochromic normocytic indices. Lately count was within normal limits. PT was normal at 12.9. BMP was remarkable for an elevated creatinine at 1.47 with a BUN of 16. Creatinine on 05/12/2019 was 1.22. LFTs were within normal limits. Random blood sugar was 223. He told me that his recent hemoglobin A1c was less than 7. He was admitted to the hospital at the request of the ED physician with a diagnosis of lower GI bleed, presumed to be due to hemorrhoidal disease. He was seen in consultation by Dr. Elmer Steen and scheduled for colono scopy on 06/08/2019. Hemoglobin and hematocrit were obtained every 6 hours and the hemoglobin was stable. Colonoscopy on the date of discharge was normal and no biopsies were taken. There were hemorrhoids present on perianal exam. He was discharged home with a prescription for MiraLAX and Anusol HC suppositories. He was instructed to follow-up with Dr. Steen in 1 week in his office. He will not require another colonoscopy for 10 years. He will continue to follow- up with Valeri Zamudio NP as needed at the [facility]. PHYSICAL EXAM: GENERAL: alert, oriented X 3, Cooperative, NAD ORAL: moist mucosa, no mucosal lesions NECK: No JVD, supple, trachea midline LUNGS: CTA, symmetric chest expansion HEART: RRR, Normal S1 and S2, no rub, no gallop ABDOMEN: soft, NT, ND, BS present, no guarding with palpation EXTREMITIES: no edema, no cyanosis, no calf tenderness SKIN: No rashes, no breakdown NEUROLOGIC: no focal neurologic deficits PSYCH: appropriate, normal affect, pleasant This note was generated with Beam[employer] Interactive[employer] software. It may contain incorrect words, spelling, and punctuation that were not noted in checking the note before signing. Patient Problems: Active and Suspected Problems (Last Reviewed 06/07/19 @ 07:33 by Angela Leo DO) Bleeding hemorrhoids (Acute) - Physical Exam Vital Signs Temp Pulse Resp BP Pulse Ox 97.6 F L 76 16 137/100 H 97 06/08/19 09:00 06/08/19 09:00 06/08/19 09:00 06/08/19 09:00 06/08/19 09:00 Oxygen Delivery Method Room Air Weight: 206 lb 9.17 oz Body Mass Index (BMI) 28.8 Finger Stick Blood Glucose 152 Intake and Output for Last 24 Hours 06/06/19 06/07/19 06/08/19 23:59 23:59 23:59 Intake Total 1963.33 / 2313.33 2350.00 / 2350.00 Balance 1963.33 / 2313.33 2350.00 / 2350.00 Microbiology Past 72 Hours 06/07/19 05:50 Stool Occult Blood (OVI) - Final Stool Occult Blood Positive Laboratory Tests Past 24 Hrs 06/07/19 06/07/19 06/08/19 13:50 20:10 06:50 Hgb 12.6 L 13.2 Hct 38.8 L 40.1 APTT Sodium 138 Potassium 4.1 Chloride 109 H Carbon Dioxide 28.0 Anion Gap 1 L BUN 8 Creatinine 1.04 Estim Creat Clear Calc 86.48 Est GFR (MDRD) Af Amer 96 Est GFR (MDRD) Non-Af 79 BUN/Creatinine Ratio 7.7 L Glucose 200 H Hemoglobin A1c Calcium 8.5 06/08/19 06/08/19 06:50 06:50 Hgb Hct APTT 25.8 Sodium Potassium Chloride Carbon Dioxide Anion Gap BUN Creatinine Estim Creat Clear Calc Est GFR (MDRD) Af Amer Est GFR (MDRD) Non-Af BUN/Creatinine Ratio Glucose Hemoglobin A1c 7.0 H Calcium POC Glucose 06/08/19 06/07/19 06/07/19 06:01 22:06 15:21 POC Glucose 215 H 150 H 136 H Discharge Activity: Return to Normal Activity Call your doctor if you observe: Fever of 101 or Higher, Shortness of breath, Dizziness, Fainting spells, Swelling in the ankles, Chest pain Home Medications: Medications to take at Discharge Nitroglycerin (INPATIENT USE) [Nitrostat] 0.4 mg SUBLINGUAL Q5M PRN 07/15/13 metFORMIN HCl [Glucophage] 500 mg PO BID 11/28/13 Loratadine 10 mg PO DAILY 06/01/17 [place]-3S/Dha/Epa/Fish Oil [Fish Oil 1,200 mg Softgel] 1 ea PO DAILY 06/01/17 latanoprost 0.005 % eye drops 1 applic EACH EYE QHS 28 Days #3 12/05/17 hydrochlorothiazide 25 mg tablet 25 mg PO DAILY #30 tab 05/16/18 amitriptyline 25 mg tablet 25 mg PO DAILY 07/03/18 pravastatin 20 mg tablet 20 mg PO DAILY #90 tab 10/07/18 pravastatin 40 mg tablet 40 mg PO DAILY #90 tab 10/07/18 Cholecalciferol (Vitamin D3) [Vitamin D3] 1 cap PO DAILY 11/09/18 Levetiracetam [Keppra] 250 mg PO BID 11/09/18 amlodipine 5 mg tablet 5 mg PO DAILY #30 tab 04/16/19 aspirin 81 mg chewable tablet 81 mg PO DAILY@0800 #30 tab 04/16/19 losartan 50 mg tablet 50 mg PO DAILY #30 tab 04/16/19 magnesium oxide 400 mg (241.3 mg magnesium) tablet 400 mg PO BID #60 tab 04/16/19 Fluticasone 0.05% [Flonase Nasal [place]] 2 spray NASAL DAILY 06/07/19 Insulin Glargine,Hum.rec.anlog [Sybilagldiane [place] U-100] 6 unit SUBCUT QHS 09/13/19 Pantoprazole Sodium [Protonix] 40 mg PO DAILY 06/07/19 Hydrocortisone [Anusol Hc] 25 mg RECTAL BID PRN PRN #20 suppos. 06/08/19 Polyethylene Glycol 3350 [Miralax] 17 gm PO DAILY #30 packet 06/08/19 Following Prescrptions Were Given to Patient: Hydrocortisone [Anusol Hc] 25 mg RECTAL BID PRN PRN #20 suppos. PRN Reason: bleeding hemorrhoids/rectal pa Prescription Printed Polyethylene Glycol 3350 [Miralax] 17 gm PO DAILY #30 packet Transmission Status: Pending to [facility] Primary Care Physician: Mame Schneider [Primary Care Provider] - Please Follow Up With: Natasha Zamudio NP-C When: as needed Patient Instructions: Hydrocortisone Acetate Rectal suppository, Treating Hemorrhoids: Self-Care, Eating a High Fiber Diet Disposition: Home Minutes spent on discharge:: 30 Medical Necessity - Tobacco Use Smoking Status: Former smoker Tobacco Use: Non-smoker Meaningful Use Info Meaningful Use Diagnoses (Choose all that apply): None applicable Code Visit OBSV E&M: 47593 Observation care discharge
--- NOTE | 2019-06-08 11:38 | PCM.PN.SRG ---
Patient Problems: Active and Suspected Problems (Last Reviewed 06/07/19 @ 07:33 by Angela Leo DO) Bleeding hemorrhoids (Acute) Subjective: no bleeding overnight - Physical Exam General: Alert, Oriented x3, Cooperative Lungs: Clear to auscultation, Normal air movement Cardiovascular: Regular rate, No murmurs Abdomen: Bowel Sounds Present, Soft, Non Tender Vital Signs Temp Pulse Resp BP Pulse Ox 97.6 F L 76 16 137/100 H 97 06/08/19 09:00 06/08/19 09:00 06/08/19 09:00 06/08/19 09:00 06/08/19 09:00 Oxygen Delivery Method Room Air Weight: 93.7 kg Body Mass Index (BMI) 28.8 Finger Stick Blood Glucose 152 Intake and Output for Last 24 Hours 06/06/19 06/07/19 06/08/19 23:59 23:59 23:59 Intake Total 1963.33 / 2313.33 2350.00 / 2350.00 Balance 1963.33 / 2313.33 2350.00 / 2350.00 Microbiology Past 72 Hours 06/07/19 05:50 Stool Occult Blood (OVI) - Final Stool Occult Blood Positive Laboratory Tests Past 24 Hrs 06/07/19 06/07/19 06/08/19 13:50 20:10 06:50 Hgb 12.6 L 13.2 Hct 38.8 L 40.1 APTT Sodium 138 Potassium 4.1 Chloride 109 H Carbon Dioxide 28.0 Anion Gap 1 L BUN 8 Creatinine 1.04 Estim Creat Clear Calc 86.48 Est GFR (MDRD) Af Amer 96 Est GFR (MDRD) Non-Af 79 BUN/Creatinine Ratio 7.7 L Glucose 200 H Hemoglobin A1c Calcium 8.5 06/08/19 06/08/19 06:50 06:50 Hgb Hct APTT 25.8 Sodium Potassium Chloride Carbon Dioxide Anion Gap BUN Creatinine Estim Creat Clear Calc Est GFR (MDRD) Af Amer Est GFR (MDRD) Non-Af BUN/Creatinine Ratio Glucose Hemoglobin A1c 7.0 H Calcium POC Glucose 06/08/19 06/07/19 06/07/19 06:01 22:06 15:21 POC Glucose 215 H 150 H 136 H Medical Necessity - Tobacco Use Smoking Status: Former smoker Tobacco Use: Non-smoker Assessment/Plan All Active Problems (Last Reviewed 06/07/19 @ 07:33 by Angela Leo DO) Bleeding hemorrhoids (Acute) Hematochezia (Acute) Lower GI bleeding (Acute) Displacement of cervical intervertebral disc without myelopathy (Resolved) Syncope (Resolved) Tobacco dependence syndrome (Resolved) hematochezia, likely lower GI bleed. I performed lower endoscopy. the patient had an unremarkable colonoscopy all the way to the base the cecum with no signs of proximal blood. He did have significant internal hemorrhoids it was felt that most likely hemorrhoidal bleeding was consistent with his symptoms the patient is currently type and screened. His hemoglobin has decreased initially from 14.7-12.6. it is since been stable. Most likely this was delusional. the patient states he has a history of an VT but had he describes an unremarkable cardiac catheterization more recently. He no longer smokes. History of PTSD. He also has a seizure disorder. Medicine be following the patient for these issues. I plan to have him follow-up in my office in one week. If he has additional bleeding episodes that seem to be more proximal source would plan for upper endoscopy.
[2019-06-08 11:41] LABS: Bedside Glucose 164 mg/dL (70-110)
== END 2019-06-08 11:47 | disposition home or self-care (01) ==
LOC: ED 06:36 → MS3 14:39
PROVIDERS: Surgery; Admitting Provider Internal Medicine; Emergency Provider Emergency Medicine; Visit Provider Internal Medicine
PROC: 0DJD8ZZ Inspection of Lower Intestinal Tract, Via Natural or Artificial Opening Endoscopic (ICD-10-PCS; CPT 45378; principal; 2019-06-08 07:40)
DX: K64.8 Other hemorrhoids (principal); E11.9 Type 2 diabetes mellitus without complications; E86.0 Dehydration; E78.5 Hyperlipidemia, unspecified; I10 Essential (primary) hypertension; I25.10 Atherosclerotic heart disease of native coronary artery without angina pectoris; G40.909 Epilepsy, unspecified, not intractable, without status epilepticus; H40.9 Unspecified glaucoma; Z87.891 Personal history of nicotine dependence; Z79.899 Other long term (current) drug therapy; Z79.4 Long term (current) use of insulin; Z79.51 Long term (current) use of inhaled steroids; Z79.82 Long term (current) use of aspirin; I25.2 Old myocardial infarction
CPT/HCPCS: 45378; 36415; 80048; 80053; 82274; 82962; 83036; 83735; 85014; 85018; 85025; 85610; 85730; 86850; 86900; 86901; 93005; 96360; 96361; 99218; 99285; J7030; J7120; A4216; G0378

== ENCOUNTER 2019-08-30 08:02 | Inpatient (IN) | payer MEDICARE, SELFPAY ==
[2019-07-02 10:18] VITALS: BMI 29.1
[2019-08-30] VITALS (10 sets, daily range): BP systolic 75–143; BP diastolic 56–86; PULSE 76–115; RESP 16–20; TEMP 36.7–36.9; O2SAT 95–100; BMI 32.5; BMI 30.9
--- NOTE | 2019-08-30 08:22 | EKG12_ITS ---
Test Reason : ABDOMINAL PAIN Blood Pressure : / mmHG Vent. Rate : 099 BPM Atrial Rate : 099 BPM P-R Int : 144 ms QRS Dur : 088 ms QT Int : 344 ms P-R-T Axes : 055 -14 -06 degrees QTc Int : 441 ms Normal sinus rhythm Minimal voltage criteria for LVH, may be normal variant T wave abnormality, consider lateral ischemia Abnormal ECG Confirmed by ZACHERY CADE, RAMON ([id number]), purchasing expeditor EDITH BARFIELD ([id number]) on 09/01/2019 9:38:22 AM Referred By: OSVALDO Confirmed By:LIONEL BINGHAM MD
[2019-08-30] MEDS: 0.9% Normal Saline 1,000 ML 125 ML IV (08:36)
[2019-08-30] MEDS: Ondansetron 4 MG/2 ML Vial IV ×2 (08:36→11:44)
[2019-08-30] MEDS: HYDROmorphone 1 MG/ML Syringe IV ×4 (08:36→23:40)
[2019-08-30 08:37] LABS: Absolute Lymphocyte Count 3.82 X10^3/uL (0.83-4.51); Absolute Neutrophil Count 7.4 X10^3/uL (2.0-7.7); Basophil# 0.04 X10^3/uL; Basophil% 0.3 % (0-1); Eosinophil# 0.07 X10^3/uL; Eosinophils% 0.6 % (0-5); Hematocrit 42.4 % (40-54); Hemoglobin 14.6 g/dL (13.0-16.5); Lymphocyte # 3.82 X10^3/ul (4.0); Lymphocyte % 31.5 % (19-41); Mean Corp Hgb Conc 34.4 g/dL (32-36); Mean Corpuscular Hgb 31.1 pg (27.0-32.0); Mean Corpuscular Volume 90.4 fL (80-94); Mean Platelet Vol. 9.6 fl (6.2-12.0); Monocyte# 0.76 X10^3/uL; Monocyte% 6.3 % (0-10); NRBC Flagged by Analyzer 0 % (0-5); Neutrophil # 7.37 X10^3/uL (2.7-7.7); Neutrophil % 60.9 % (47-70); Platelet Count 196 K/mm3 (150-450); RBC Distribution Width SD 42.5 fl (35.1-43.9); Red Blood Count 4.69 M/mm3 (4.6-6.2); White Blood Count 12.1 K/mm3 (4.4-11.0)
--- NOTE | 2019-08-30 08:43 | ED.DCSUM_ITS ---
- ER Visit Summary Date of Service: 08/30/19 Chief Complaint: [Abdominal pain] History of Present Illness: The patient is a 54 M [presents to the emergency department with complaint of abdominal pain that woke him up from sleep around 5 AM. Patient describes nausea however no vomiting. He denies any diarrhea. He had a normal bowel movement today. Patient describes the pain is epigastric and wrapping around to his back. Patient states the pain reminds him of when he needed to have his gallbladder removed which was removed. Patient has history of coronary artery disease, diabetes, hypertension, high cholesterol. Patient has prior history of pancreatitis. He denies any chest pain or shortness of breath. Patient did drink several beers last evening. He does not smoke currently and he denies any illicit drug use.] Physical Examination: [HEENT-PERRLA, EOMI. Cranial nerves II through XII grossly intact. TMs clear. Mucous membranes moist. No adenopathy. Cardiovascular-regular rate and rhythm without murmur or ectopy Lungs-clear to auscultation, chest wall stable without crepitus or subcu emphysema Abdomen-normoactive bowel sounds, soft. Patient has tenderness in the epigastric region with some guarding. There is no rebound, rigidity, or pedal signs. Extremities-intact ?4, normal range of motion, normal pulses, atraumatic] Test Results: [EKG obtained on arrival shows sinus rhythm with a ventricular rate of [address] changes noted. CBC with differential count 12.1, hemoglobin 14.6, hematocrit 42, plates 196. Chemistry showed a sodium 134, potassium 3.8, chloride 99, CO2 20, BUN was 12 and creatinine was 1.26. Glucose was 201. Lipase was 1036. Troponin is less than 0.015.] Emergency Department Course and Treatment: [Patient had normal saline given through IV and given Dilaudid and Zofran for pain control and nausea control.] After medicating the patient his blood pressure dropped into the 70s systolic retrospect may be medication related. Patient will be given a liter of normal saline wide open. Treatment Plan: [Admit for symptom management and fluid hydration] Disposition: [Admit] Impression: [Acute pancreatitis Abdominal pain] This note was generated with [employer] dictation software. It may contain incorrect words, spelling, and punctuation that were not noted in review of the chart prior to signing ED Disposition - Plan for ED Patient: Referrals: Nissa Huston,Mame Chapman [Primary Care Provider] -
[2019-08-30 08:55] LABS: ALB/GLOB Ratio 1.2 RATIO (0.9-2.4); AST(SGOT) 20 U/L (15-37); Alanine Aminotransfer ALT/SGPT 42 U/L (16-61); Albumin, Serum 4.3 g/dL (3.2-5.0); Alkaline Phosphatase 65 U/L (45-117); Anion Gap 15 (5-15); BUN 12 mg/dL (7-18); BUN/Creat Ratio 9.5 RATIO (10-20); Calcium,Total 9.1 mg/dL (8.5-10.1); Chloride 99 mmol/L (98-107); Creatinine, Serum 1.26 mg/dL (0.70-1.30); EST Glomerular Filtration Rate 63 mL/min (>60); Est Glom Filt Rate - Afr Amer 77 mL/min (>60); Globulin 3.7 g/dL (2.2-4.2); Glucose 201 mg/dL (74-106); Lipase 1036 U/L (73-393); Potassium 3.8 mmol/L (3.5-5.1); Sodium Level 134 mmol/L (136-145)
--- NOTE | 2019-08-30 09:07 | HP.PCM_ITS ---
Problem List (1) Acute pancreatitis Status: Acute Qualifiers: Pancreatitis type: unspecified pancreatitis type Acute pancreatitis complication: unspecified Qualified Code(s): K85.90 - Acute pancreatitis without necrosis or infection, unspecified (2) Chest pain Status: Acute Qualifiers: Chest pain type: unspecified Qualified Code(s): R07.9 - Chest pain, unspecified (3) Former tobacco use Status: Chronic (4) Coronary artery disease Status: Chronic Qualifiers: Coronary Disease-Associated Artery/Lesion type: unspecified vessel or lesion type [place] vs. transplanted heart: unspecified whether [place] or transplanted heart Associated angina: angina presence unspecified Qualified Code(s): I25.10 - Atherosclerotic heart disease of [place] coronary artery without angina pectoris Comment: non-obstructive (5) Hyperlipidemia Status: Chronic Qualifiers: Hyperlipidemia type: unspecified Qualified Code(s): E78.5 - Hyperlipidemia, unspecified (6) Seizure disorder Status: Chronic (7) Diabetes mellitus type 2 in nonobese Status: Chronic (8) PTSD (post-traumatic stress disorder) Status: Chronic (9) Essential (primary) hypertension Status: Chronic (10) GERD (gastroesophageal reflux disease) Status: Chronic Qualifiers: Esophagitis presence: esophagitis presence not specified Qualified Code(s): K21.9 - Gastro-esophageal reflux disease without esophagitis (11) Gastric ulcer Status: Chronic Qualifiers: Gastric ulcer chronicity: unspecified ulcer chronicity Gastric ulcer complication status: unspecified whether hemorrhage or perforation present Qualified Code(s): K25.9 - Gastric ulcer, unspecified as acute or chronic, witho ut hemorrhage or perforation History of Present Illness Date of Admission: 08/30/19 Chief Complaint: Abdominal pain, nausea The patient is a 54 y/o F w/ PMHx: Nonobstructive CAD, Anxiety and Depression/PTSD, GERD w/ hx Gastric ulcer, Hx ? Seizures, Prior Pancreatitis s/p cholecystectomy, Diabetes mellitus type II, HTN, HLD who presents to the [facility] on 08/30/19 who presents with onset abdominal pain, awoke him at 5 am, epigastric with radiation toward his back, 10/10 in severity, continuous, sharp with nausea without emesis. He notes that recently the only new medication he was prescribed with sucralfate for ongoing reflux issues per his primary care physician in the last several weeks. Work-up in the ED included T 98, heart rate initially 103 with improvement 80 with pain regimen, BP 138/86, respiratory rate 18, 96% on room air, CBC with WBC 12.1, hemoglobin 14.6, platelet 196 without any shift noted, CMP with sodium 134, dioxide 20, glucose 201, unremarkable hepatic profile, troponin less than 0.015, lipase 1036, urinalysis with evidence of dehydration with no obvious UTI, of note following administration of Dilaudid patient became hypotensive with BP 75/66 but improved clinically following continue IV fluids, EKG with nonspecific ST changes, new from prior. In the ED patient ministered normal saline, Zofran, Dilaudid 1 mg IV x1 with as noted hypotension following. Past Medical History Past Medical History (Chronic Problems): Chronic Problems (Last Reviewed 07/02/19 @ 10:58 by DAFNE Walters) Former tobacco use (Chronic) GERD (gastroesophageal reflux disease) (Chronic) Gastric ulcer (Chronic) Constipation (Chronic) Coronary artery disease (Chronic) non-obstructive Hyperlipidemia (Chronic) Seizure disorder (Chronic) Hypomagnesemia (Chronic) Diabetes mellitus type 2 in nonobese (Chronic) PTSD (post-traumatic stress disorder) (Chronic) Glaucoma (Chronic) Essential (primary) hypertension (Chronic) Medical History: Medical History (Last Reviewed 07/02/19 @ 10:58 by DAFNE Walters) Essential (primary) hypertension (Chronic) I10 Anxiety and depression F41.9, F32.9 Gastric ulcer K25.9 Glaucoma H40.9 PTSD (post-traumatic stress disorder) F43.10 Pancreatitis K85.90 Type 2 diabetes mellitus E11.9 Allergies hydrocodone bitartrate [From Vicodin] Allergy (Verified 08/30/19 08:10) Angioedema lisinopril Allergy (Verified 08/30/19 08:10) Angioedema tramadol Allergy (Verified 08/30/19 08:10) Itching cyclobenzaprine Adverse Reaction (Severe, Verified 08/30/19 08:10) Skin crawling morphine Adverse Reaction (Verified 08/30/19 08:10) Itching Home Medications: Ambulatory Orders Medication Instructions Recorded Nitroglycerin (INPATIENT USE) 0.4 mg SUBLINGUAL Q5M PRN 07/15/13 [Nitrostat] metFORMIN HCl [Glucophage] 500 mg PO BID 11/28/13 Loratadine 10 mg PO DAILY 06/01/17 [place]-3S/Dha/Epa/Fish Oil [Fish 1 ea PO DAILY 06/01/17 Oil 1,200 mg Softgel] latanoprost 0.005 % eye drops 1 applic EACH EYE QHS 28 Days #3 12/05/17 amitriptyline 25 mg tablet 25 mg PO DAILY 07/03/18 Cholecalciferol (Vitamin D3) 1 cap PO DAILY 11/09/18 [Vitamin D3] Levetiracetam [Keppra] 250 mg PO BID 11/09/18 amlodipine 5 mg tablet 5 mg PO DAILY #30 tab 04/16/19 aspirin 81 mg chewable tablet 81 mg PO DAILY@0800 #30 tab 04/16/19 losartan 50 mg tablet 50 mg PO DAILY #30 tab 04/16/19 magnesium oxide 400 mg (241.3 mg 400 mg PO BID #60 tab 04/16/19 magnesium) tablet Fluticasone 0.05% [Flonase Nasal 2 spray NASAL DAILY 06/07/19 [place]] Insulin Glargine,Hum.rec.anlog 6 unit SUBCUT QHS 06/07/19 [Basaglar Kwikpen U-100] Pantoprazole Sodium [Protonix] 40 mg PO DAILY 06/07/19 Hydrocortisone [Anusol Hc] 25 mg RECTAL BID PRN PRN #20 06/08/19 suppos. Polyethylene Glycol 3350 [Miralax] 17 gm PO DAILY #30 packet 06/08/19 hydrochlorothiazide 25 mg tablet 25 mg PO DAILY #30 tab 07/02/19 pravastatin 20 mg tablet 20 mg PO DAILY #30 tab 07/02/19 pravastatin 40 mg tablet 40 mg PO DAILY #30 tab 07/02/19 Surgical History: Surgical History (Last Reviewed 07/02/19 @ 10:58 by DAFNE Walters) History of left heart catheterization Onset Date: 10/31/11 Z98.890 Surgical History: cholecystectomy Psychiatric History: Anxiety, Depression, Post traumatic stress Lives: Alone Smoking Status: Former smoker Tobacco Use: Non-smoker Alcohol: Occasional - Patient notes 2-4 beers per week. Drugs: None - *Family History Maternal Family History: Family History (Last Reviewed 07/02/19 @ 10:58 by DAFNE Walters) Mother Heart disease History Items: Diabetes, Heart Disease Paternal Family History: Family History (Last Reviewed 07/02/19 @ 10:58 by DAFNE Walters) Mother Heart disease History Items: Cancer, Diabetes, Heart Disease Sibling Family History: Family History (Last Reviewed 07/02/19 @ 10:58 by DAFNE Walters) Mother Heart disease History Items: Cancer - Sister with breast cancer, brother with prostate cancer Review of Systems Constitutional: Reports: Anorexia, Malaise, Weakness, Fatigue. Denies: Chills, Fever, Weight Change HEENT: Denies: Head Aches, Sinus Congestion, Sinus Drainage Cardiovascular: Reports: Chest Pain. Denies: Chest Pressure, Chest Tightness, Heaviness, Light Headedness, Orthopnea, Palpitations, Syncope Respiratory: Denies: Cough, Shortness of breath at rest, Sputum production Gastrointestinal: Reports: Abdominal Pain, Nausea. Denies: Vomiting Genitourinary: Denies: Dysuria Musculoskeletal: Reports: Back Pain, Joint Pain. Denies: Joint Tenderness Skin: Denies: Rash, Wounds Neurological: Denies: Numbness, Tingling, Focal weakness Psychiatric: Reports: Anxiety, Depression. Denies: Homicidal Ideations, Suicidal Ideations Hematologic/ Lymphatic: Reports: Easy Bruising, Easy Bleeding VTE Information - Inpt Only VTE Present on Admission: No VTE Mechan Device Prophylaxis: SCD's VTE Pharm Prophylaxis ordered?: No Reason prophylaxis not ordered:: Medical Contraindication - Holding given concern for possible GERD/ulcer as pancreatitis etiology pending endoscopy. Patient Problems: Active and Suspected Problems (Last Reviewed 07/02/19 @ 10:58 by DAFNE Walters) Acute pancreatitis (Acute) Chest pain (Acute) Subjective: Laying in the PCU bed, very uncomfortable appearing, notes nauseous and ongoing epigastric pain. Objective: Physical Examination: General: awake, alert, oriented x 3 and cooperative, seated upright in the PCU bed, uncomfortable appearing, ongoing epigastric pain, nauseous. Skin: normal color, turgor, no icterus, cyanosis. HEENT: AT/NC, EOMI, PERRLA, dry MM, no carotid bruits or JVD noted. Lungs: CTA bilaterally, moderate effort, moderate decrease BL bases, no rales, ronchi or wheezing. Heart: Currently mildly tachycardic with regular rhythm; no gallop, rub audible. Abdomen: soft, severe epigastric discomfort with guarding and some rebound with palpation, appear distended, distant hypoactive BS, difficult to assess HSM secondary to severity of abdominal pain at this time. Extremities: no cyanosis, clubbing, or edema. Neurological: patient awake, alert, oriented x 3; cognitive function intact; pupils equally reactive to light and accomodation; cranial nerves II-XII grossly normal, moving all 4 extremities, no focal deficits, strength severely global decrease secondary to acute presentation. Psychiatric: affect appears comfortable, in pain, no acute evidence of depressive or anxiety feelings. - Physical Exam Vitals/I&O's: Vital Signs Temp Pulse Resp BP Pulse Ox 98.0 F 80 16 75/66 L 96 08/30/19 08:06 08/30/19 09:05 08/30/19 09:05 08/30/19 09:05 08/30/19 09:05 Oxygen Delivery Method Room Air Weight: 226 lb 9.6 oz Body Mass Index (BMI) 32.5 Finger Stick Blood Glucose 152 Laboratory Results 08/30/19 08:31: WBC 12.1 H, RBC 4.69, Hgb 14.6, Hct 42.4, MCV 90.4, MCH 31.1, MCHC 34.4, RDW Std Deviation 42.5, RDW Coeff of Armin 13.0, Plt Count 196, MPV 9.6, Immature Gran % (Auto) 0.400, Neut % (Auto) 60.9, Lymph % (Auto) 31.5, [place] % (Auto) 6.3, Eos % (Auto) 0.6, Baso % (Auto) 0.3, Absolute Neuts (auto) 7.4, Absolute Lymphs (auto) 3.82, Nucleated RBC % 0 08/30/19 08:31: Sodium 134 L, Potassium 3.8, Chloride 99, Carbon Dioxide 20.0 L, Anion Gap 15, BUN 12, Creatinine 1.26, Estim Creat Clear Calc 69.20, Est GFR (MDRD) Af Amer 77, Est GFR (MDRD) Non-Af 63, BUN/Creatinine Ratio 9.5 L, Glucose 201 H, Calcium 9.1, Total Bilirubin 0.50, AST 20, ALT 42, Alkaline Phosphatase 65, Troponin I < 0.015, Total Protein 8.0, Albumin 4.3, Globulin 3.7, Albumin/Globulin Ratio 1.2, Lipase 1036 H Current Medications Sodium Chloride () 1,000 mls @ 999 mls/hr IV .Q1H1M CELIO Last Admin: 08/30/19 08:36 Dose: 125 mls/hr Documented by: Assessment/Plan All Active Problems (Last Reviewed 07/02/19 @ 10:58 by DAFNE Walters) Acute pancreatitis (Acute) Chest pain (Acute) Bleeding hemorrhoids (Acute) Hematochezia (Acute) Lower GI bleeding (Acute) Displacement of cervical intervertebral disc without myelopathy (Resolved) Syncope (Resolved) Tobacco dependence syndrome (Resolved) The patient is a 54 y/o F w/ PMHx: Nonobstructive CAD, Anxiety and Depression/PTSD, GERD w/ hx Gastric ulcer, Hx ? Seizures, Prior Pancreatitis s/p cholecystectomy, Diabetes mellitus type II, HTN, HLD who presents to the [facility] on 08/30/19 who presents with onset abdominal pain, awoke him at 5 am, epigastric with radiation toward his back, 10/10 in severity, continuous, sharp with nausea without emesis. 1. Acute pancreatitis w/ abdominal pain, N: Admission CBC w/ WBC 12.1 without shift, CMP w/ with sodium 134, carbon dioxide 20, glucose 2 1 otherwise unremarkable, Lipase 1036. Will admit to PCU given concurrent EKG changes, maintain on IVFs, NPO, PPI, IV/po pain control, scheduled toradol x 5 doses, trend lipase, CMP. Patient is status post cholecystectomy prior, will obtain lipid panel, denies alcohol as etiology, given prior history of GERD with gastri c ulcer discussed case with general surgeon, Dr. Steen and will perform endoscopy in a.m. 2. Chest pain, suspected secondary to #1 with EKG changes: EKG in ED nonspecific ST changes new from prior, initial troponin less than 0.015. Will place on a monitored bed to assure no acute myocardial infarction with serial cardiac enzymes and EKGs. ASA, NG, fentanyl given allergies and noted hypotension with Dilaudid. Mag pending. 3. Nonobstructive CAD: Notes history of CAD but notes that cardiac catheterization was possibly unremarkable remotely, will maintain on aspirin, losartan, not on beta-slick therapy, continue statin. Mag pending. 4. Hypertension: Continue home regimen including amlodipine, losartan, holding hydrochlorothiazide given acute presentation as noted above #1, PRN hydralazine. 5. Hyperlipidemia: Continue home statin regimen. AM FLP. 6. Diabetes mellitus type II: Hold oral home regimen, continue home insulin regimen, n.p.o. status currently given acute presentation #1, every 6 hours while n.p.o. Accu checks w/ ISS, HgbA1c obtained 7.0%. 7. Seizure disorder: We will continue patient home Keppra regimen. 8. GERD with history gastric ulcer: We will continue PPI as noted, planned endoscopy in a.m. per general surgery. 9. Anxiety and Depression/PTSD: From current regimen listed not on appropriate regimen, encourage continued follow-up with primary care physician and initiation of appropriate regimen if felt necessary outpatient. 10. DVT prophylaxis: SCDs, defer chemoprophylaxis given #1, will continue aspirin therapy given #2 however and may hold if needed. Code Visit Inpatient E&M: 83099 Init Hosp L3
[2019-08-30 10:00] LABS: Magnesium 1.8 mg/dL (1.6-2.6)
[2019-08-30] MEDS: 0.9% Normal Saline 1,000 ML 150 ML IV ×2 (11:30→18:58)
[2019-08-30 11:36] LABS: Bacteria 0 SEEN /hpf (None Seen); Mucous, Urine 0 SEEN /hpf (<or=2+); Red Blood Cells-Urine 0 SEEN /hpf (0-5); Squamous Epithelial Cells - UA 0 SEEN /hpf (0-5); White Blood Cells 0 SEEN /hpf (0-5)
[2019-08-30] MEDS: levETIRAcetam 250 MG Tablet PO ×2 (11:38→20:01)
[2019-08-30] MEDS: Ketorolac 30 MG/ML Syringe IV (11:38)
[2019-08-30] MEDS: Magnesium Oxide 400 MG Tablet PO (11:38)
[2019-08-30] MEDS: amLODIPine 5 MG Tablet PO (11:39)
[2019-08-30] MEDS: Losartan Potassium 50 MG Tablet PO (11:39)
[2019-08-30] MEDS: Enoxaparin 40 MG/0.4 ML Syringe SC (11:39)
[2019-08-30] MEDS: Fluticasone 0.05% 1 SPRAY NASAL.SRY 2 SPRAY NASAL (11:39)
[2019-08-30] MEDS: Polyethylene Glycol 3350 17 GM PACKET PO (11:40)
[2019-08-30 11:42] LABS: Color, Urine Yellow (Yellow); Glucose, Dipstick 100 mg/dl (Normal); Ketone-Dipstick 15 mg/dl (Negative); Leukocyte Esterase-Dipstick Negative /ul (Negative); Nitrite-Dipstick Negative (Negative); Occult Blood-Urine Negative /ul (Negative); Protein-Dipstick 30 mg/dl (Negative); Urine Bilirubin Dipstick Negative (Negative); Urine Clarity Clear (Clear); Urine Urobilinogen Normal (Normal)
[2019-08-30 11:50] LABS: Bedside Glucose 189 mg/dL (70-110)
[2019-08-30 11:57] LABS: Hyaline Cast 0-5 SEEN /lpf (0-5)
--- NOTE | 2019-08-30 13:51 | CT_ITS ---
STUDY: CT ABDOMEN AND PELVIS WITH CONTRAST REASON FOR EXAM: Male, 54 years old. Pancreatitis. Severe abdominal pain with nausea and vomiting. RADIATION DOSAGE (If Supplied By Facility): CTDIvol = ( 13.1 ) mGy, DLP = ( 929.47 ) mGycm TECHNIQUE: Transaxial images were obtained from the dome of the diaphragm to the symphysis pubis without oral contrast. IV 100ML ISOVUE 370 was administered. Sagittal and coronal images were reconstructed. Individualized dose optimization techniques were used for this CT. COMPARISON: Comparison is made with prior study dated May 11, 2019. FINDINGS: Mild degree of increased linear markings at the lung bases suggestive of atelectasis. The visualized portions of the heart are within normal limits. There is decreased attenuation of the liver consistent with steatosis. Hepatomegaly. The patient is status post cholecystectomy. Normal spleen. Normal pancreas. Normal bilateral adrenal glands. Normal right kidney. Normal left kidney. There is a small hiatal hernia. Normal small intestine. There are scattered colonic diverticula consistent with diverticulosis. The appendix is visualized and appears normal. There is scattered atherosclerotic calcification of the abdominal aorta, without a demonstrated aneurysm. Normal inferior vena cava. Normal retroperitoneum. Normal urinary bladder. Small bilateral inguinal lymph nodes. Normal abdominal wall. Straightening of the normal lumbar lordosis. CT/Abdomen/Pelvis W IV Cont ONLY IMPRESSION: Hepatomegaly with diffuse fatty infiltration of the liver. Findings suggestive of dependent bibasilar atelectasis. Electronically Signed: Brendan Ty, at 15:20 EST , Service support ,
[2019-08-30] MEDS: fentaNYL 100 MCG/2 ML Ampul 25 MCG IV (14:09)
[2019-08-30] MEDS: fentaNYL 100 MCG/2 ML Ampul 50 MCG IV (14:27)
--- NOTE | 2019-08-30 16:08 | PCM.CONS.GEN ---
<Kendy Cedeño - Last Filed: 08/30/19 16:08> Reason for Consult Date of Consultation: 08/30/19 Reason for Consultation: epigastric pain History of Present Illness: The patient is a 54 year old M I am seeing for surgical consultation in conjunction with Dr. Elmer Steen. Patient presented to emergency department this morning with severe abdominal pain, onset early this morning. He notes pain primarily in the epigastric area with radiation around his right upper quadrant to his back. Denies nausea, vomiting or changes in bowel habits. Denies specific aggravating or alleviating factors. Patient had laboratory studies in the ED significant for WBCs 12.1, hemoglobin 14.6, lipase 1036. Patient had EKG with nonspecific ST changes. Initial troponin less than 0.015. Patient was admitted to monitored floor for further evaluation and treatment with IV fluids, NPO, IV analgesia, PPI. General surgery was consulted. Patient had a CT scan of abdomen and pelvis due to intractable abdominal pain performed due to intractable abdominal pain, this showed hepatomegaly and diffuse fatty infiltration of liver without acute findings. Patient's past medical history is significant for coronary artery disease, hypertension, diabetes mellitus, GERD and peptic ulcer disease, anxiety, PTSD. He is s/p cholecystectomy and notable had a past history of pancreatitis at that time. He denies any problems with sedation in the past. Past Medical History Past Medical History (Chronic Problems): Chronic Problems (Last Reviewed 07/02/19 @ 10:58 by DAFNE Walters) Former tobacco use (Chronic) GERD (gastroesophageal reflux disease) (Chronic) Gastric ulcer (Chronic) Constipation (Chronic) Coronary artery disease (Chronic) non-obstructive Hyperlipidemia (Chronic) Seizure disorder (Chronic) Hypomagnesemia (Chronic) Diabetes mellitus type 2 in nonobese (Chronic) PTSD (post-traumatic stress disorder) (Chronic) Glaucoma (Chronic) Essential (primary) hypertension (Chronic) Medical History: Medical History (Last Reviewed 07/02/19 @ 10:58 by DAFNE Walters) Essential (primary) hypertension (Chronic) I10 Anxiety and depression F41.9, F32.9 Gastric ulcer K25.9 Glaucoma H40.9 PTSD (post-traumatic stress disorder) F43.10 Pancreatitis K85.90 Type 2 diabetes mellitus E11.9 Allergies hydrocodone bitartrate [From Vicodin] Allergy (Verified 08/30/19 08:10) Angioedema lisinopril Allergy (Verified 08/30/19 08:10) Angioedema tramadol Allergy (Verified 08/30/19 08:10) Itching cyclobenzaprine Adverse Reaction (Severe, Verified 08/30/19 08:10) Skin crawling morphine Adverse Reaction (Verified 08/30/19 08:10) Itching Home Medications: Ambulatory Orders Medication Instructions Recorded Nitroglycerin (INPATIENT USE) 0.4 mg SUBLINGUAL Q5M PRN 07/15/13 [Nitrostat] metFORMIN HCl [Glucophage] 500 mg PO BID 11/28/13 Loratadine 10 mg PO DAILY 06/01/17 [place]-3S/Dha/Epa/Fish Oil [Fish 1 ea PO DAILY 06/01/17 Oil 1,200 mg Softgel] latanoprost 0.005 % eye drops 1 applic EACH EYE QHS 28 Days #3 12/05/17 amitriptyline 25 mg tablet 25 mg PO DAILY 07/03/18 Cholecalciferol (Vitamin D3) 1 cap PO DAILY 11/09/18 [Vitamin D3] Levetiracetam [Keppra] 250 mg PO BID 11/09/18 amlodipine 5 mg tablet 5 mg PO DAILY #30 tab 04/16/19 aspirin 81 mg chewable tablet 81 mg PO DAILY@0800 #30 tab 04/16/19 losartan 50 mg tablet 50 mg PO DAILY #30 tab 04/16/19 magnesium oxide 400 mg (241.3 mg 400 mg PO BID #60 tab 04/16/19 magnesium) tablet Fluticasone 0.05% [Flonase Nasal 2 spray NASAL DAILY 06/07/19 [place]] Insulin Glargine,Hum.rec.anlog 6 unit SUBCUT QHS 06/07/19 [Basaglar Kwikpen U-100] Pantoprazole Sodium [Protonix] 40 mg PO DAILY 06/07/19 Hydrocortisone [Anusol Hc] 25 mg RECTAL BID PRN PRN #20 06/08/19 suppos. Polyethylene Glycol 3350 [Miralax] 17 gm PO DAILY #30 packet 06/08/19 hydrochlorothiazide 25 mg tablet 25 mg PO DAILY #30 tab 07/02/19 pravastatin 20 mg tablet 20 mg PO DAILY #30 tab 07/02/19 pravastatin 40 mg tablet 40 mg PO DAILY #30 tab 07/02/19 Surgical History: Surgical History (Last Reviewed 07/02/19 @ 10:58 by DAFNE Walters) History of left heart catheterization Onset Date: 10/31/11 Z98.890 Surgical History: cholecystectomy Psychiatric History: Anxiety, Depression, Post traumatic stress Lives: Alone Smoking Status: Former smoker Tobacco Use: Non-smoker Alcohol: Occasional - Patient notes 2-4 beers per week. Drugs: None - *Family History Maternal Family History: Family History (Last Reviewed 07/02/19 @ 10:58 by DAFNE Walters) Mother Heart disease History Items: Diabetes, Heart Disease Paternal Family History: Family History (Last Reviewed 07/02/19 @ 10:58 by DAFNE Walters) Mother Heart disease History Items: Cancer, Diabetes, Heart Disease Sibling Family History: Family History (Last Reviewed 07/02/19 @ 10:58 by DAFNE Walters) Mother Heart disease History Items: Cancer - Sister with breast cancer, brother with prostate cancer Review of Systems Constitutional: Reports: Malaise Eyes: Denies: Vision Change HEENT: Denies: Visual Changes Cardiovascular: Reports: Chest Pain. Denies: Syncope Respiratory: Denies: Shortness of Breath Gastrointestinal: Reports: Abdominal Pain Skin: Reports: Pruritis Patient Problems: Active and Suspected Problems (Last Reviewed 07/02/19 @ 10:58 by DAFNE Walters) Acute pancreatitis (Acute) Chest pain (Acute) - Physical Exam Vitals/I&O's: Vital Signs Temp Pulse Resp BP Pulse Ox 98.5 F 76 18 124/57 H 95 08/30/19 12:08 08/30/19 12:08 08/30/19 12:08 08/30/19 12:08 08/30/19 15:18 Oxygen Delivery Method Room Air Weight: 215 lb 6.266 oz Body Mass Index (BMI) 30.9 Finger Stick Blood Glucose 152 Intake and Output for Last 24 Hours 08/28/19 08/29/19 08/30/19 23:59 23:59 23:59 Intake Total 1050.00 / 1050.00 Output Total 200 / 200 Balance 850.00 / 850.00 General: Alert, Oriented x3, Cooperative HEENT: Atraumatic Neck: Supple Lungs: Clear to auscultation, Normal air movement Cardiovascular: Regular rate, Regular Rhythm Abdomen: Tender - +epigastric and RUQ Extremities: No clubbing, No cyanosis Skin: No rashes, No breakdown Laboratory Results 08/30/19 08:31: WBC 12.1 H, RBC 4.69, Hgb 14.6, Hct 42.4, MCV 90.4, MCH 31.1, MCHC 34.4, RDW Std Deviation 42.5, RDW Coeff of Armin 13.0, Plt Count 196, MPV 9.6, Immature Gran % (Auto) 0.400, Neut % (Auto) 60.9, Lymph % (Auto) 31.5, [place] % (Auto) 6.3, Eos % (Auto) 0.6, Baso % (Auto) 0.3, Absolute Neuts (auto) 7.4, Absolute Lymphs (auto) 3.82, Nucleated RBC % 0 08/30/19 08:31: Sodium 134 L, Potassium 3.8, Chloride 99, Carbon Dioxide 20.0 L, Anion Gap 15, BUN 12, Creatinine 1.26, Estim Creat Clear Calc 69.20, Est GFR (MDRD) Af Amer 77, Est GFR (MDRD) Non-Af 63, BUN/Creatinine Ratio 9.5 L, Glucose 201 H, Calcium 9.1, Total Bilirubin 0.50, AST 20, ALT 42, Alkaline Phosphatase 65, Troponin I < 0.015, Total Protein 8.0, Albumin 4.3, Globulin 3.7, Albumin/Globulin Ratio 1.2, Lipase 1036 H 08/30/19 08:31: Hemoglobin A1c 7.0 H 08/30/19 08:31: Magnesium 1.8 08/30/19 11:16: Troponin I < 0.015 08/30/19 11:30: Urine Color Yellow, Urine Clarity Clear, Urine pH 5.0, Ur Specific Junior 1.020, Urine Protein 30 H, Urine Glucose (UA) 100 H, Urine Ketones 15 H, Urine Occult Blood Negative, Urine Nitrite Negative, Urine Bilirubin Negative, Urine Urobilinogen Normal, Ur Leukocyte Esterase Negative, Urine RBC 0 SEEN, Urine WBC 0 SEEN, Ur Squamous Epith Cells 0 SEEN, Urine Bacteria 0 SEEN, Hyaline Casts 0-5 SEEN, Urine Mucus 0 SEEN 08/30/19 11:37: POC Glucose 189 H 08/30/19 14:15: Troponin I < 0.015 Current Medications Acetaminophen (Tylenol) 650 mg PO Q6H PRN PRN PRN Reason: Non-cardiac pain (mod-severe) Al Hydroxide/Mg Hydroxide (Mylanta Ii) 15 - 30 ml PO Q4H PRN PRN PRN Reason: INDIGESTION Albuterol Sulfate (Ventolin Aerosols) 2.5 mg INHALATION Q2H PRN PRN PRN Reason: dyspnea, wheezing Amitriptyline HCl (Elavil) 25 mg PO DAILY@2200 [facility] Amlodipine Besylate (Norvasc) 5 mg PO DAILY [facility] Last Admin: 08/30/19 11:39 Dose: 5 mg Documented by: Aspirin (Aspirin, Baby) 81 mg PO DAILY@0800 [facility] Dextrose (D50w Syringe) 0 gm IV X1 PRN; Protocol PRN Reason: Hypoglycemia Fluticasone Propionate (Flonase Nasal [place]) 2 spray NASAL DAILY [facility] Last Admin: 08/30/19 11:39 Dose: 2 spray Documented by: Gabapentin (Neurontin) 300 mg PO TIDCM [facility] Glucagon () 1 mg IM .X1 PRN PRN Reason: Hypoglycemia Guaifenesin (Robitussin) 20 ml PO Q4H PRN PRN PRN Reason: COUGH Hydralazine HCl (Apresoline Iv) 10 mg IV Q4H PRN PRN PRN Reason: SBP > 160 Hydromorphone HCl (Dilaudid Inj) 1 mg IV Q3H PRN PRN PRN Reason: 6-10 pain Sodium Chloride () 1,000 mls @ 150 mls/hr IV .Q6H40M [facility] Last Admin: 08/30/19 11:30 Dose: 150 mls/hr Documented by: Pantoprazole Sodium 40 mg/ (Sodium Chloride) 110 mls @ 330 mls/hr IV Q12 [facility] Insulin Glargine (Lantus (Bkc)) 6 units SC QHS [facility] Insulin Human Lispro (Humalog Kwikpen (Bkc)) 0 unit SC Q6 [facility]; Protocol Last Admin: 08/30/19 13:35 Dose: Not Given Documented by: Latanoprost (Xalatan Opthalmic) 1 drop EACH EYE QHS [facility] Levetiracetam (Keppra Tablet) 250 mg PO BID [facility] Last Admin: 08/30/19 11:38 Dose: 250 mg Documented by: Loratadine (Claritin) 10 mg PO DAILY [facility] Losartan Potassium (Cozaar) 50 mg PO DAILY [facility] Last Admin: 08/30/19 11:39 Dose: 50 mg Documented by: Magnesium Hydroxide (Milk Of Magnesia) 30 ml PO DAILY PRN PRN Reason: Constipation [facility] ([facility]Ox 400) [facility] Last Admin: 08/30/19 11:38 Dose: 400 mg Documented by: Ondansetron HCl (Zofran) 4 mg IV Q8H PRN PRN PRN Reason: NAUSEA/VOMITING Last Admin: 08/30/19 11:44 Dose: 4 mg Documented by: Polyethylene Glycol (Miralax) 17 gm PO DAILY [facility] Last Admin: 08/30/19 11:40 Dose: 17 gm Documented by: Pravastatin Sodium (Pravachol) 40 mg PO DAILY@2200 [facility] Promethazine HCl (Phenergan) 12.5 mg IV Q4H PRN PRN PRN Reason: NAUSEA/VOMITING Sodium Chloride () 10 - 40 ml IV UD PRN PRN Reason: SALINE FLUSH Temazepam (Restoril) 15 mg PO QHS PRN PRN PRN Reason: INSOMNIA Throat Lozenges (Cepacol Sore Throat Lozenge) 1 lozenge MUCOUS MEM Q2H PRN PRN PRN Reason: Sore Throat/Cough Assessment/Plan All Active Problems (Last Reviewed 07/02/19 @ 10:58 by DAFNE Walters) Acute pancreatitis (Acute) Chest pain (Acute) Bleeding hemorrhoids (Acute) Hematochezia (Acute) Lower GI bleeding (Acute) Displacement of cervical intervertebral disc without myelopathy (Resolved) Syncope (Resolved) Tobacco dependence syndrome (Resolved) I have reviewed my findings with Dr. Steen, who also participated in development of the following plan. Severe epigastric pain and pancreatitis with history of GERD and peptic ulcer disease-will plan for EGD for further evaluation tomorrow morning with Dr. Steen. Continue PPI and IV fluids Patient verbalized understanding of all above and agreed with the plan <Elmer Steen - Last Filed: 08/31/19 07:09> Reason for Consult History of Present Illness: The patient is a 54 year old M [] Past Medical History Medical History: Medical History (Last Reviewed 07/02/19 @ 10:58 by DAFNE Walters) Essential (primary) hypertension (Chronic) I10 Anxiety and depression F41.9, F32.9 Gastric ulcer K25.9 Glaucoma H40.9 PTSD (post-traumatic stress disorder) F43.10 Pancreatitis K85.90 Type 2 diabetes mellitus E11.9 Allergies hydrocodone bitartrate [From Vicodin] Allergy (Verified 08/30/19 08:10) Angioedema lisinopril Allergy (Verified 08/30/19 08:10) Angioedema tramadol Allergy (Verified 08/30/19 08:10) Itching cyclobenzaprine Adverse Reaction (Severe, Verified 08/30/19 08:10) Skin crawling morphine Adverse Reaction (Verified 08/30/19 08:10) Itching Surgical History: Surgical History (Last Reviewed 07/02/19 @ 10:58 by DAFNE Walters) History of left heart catheterization Onset Date: 10/31/11 Z98.890 - *Family History Maternal Family History: Family History (Last Reviewed 07/02/19 @ 10:58 by DAFNE Walters) Mother Heart disease Paternal Family History: Family History (Last Reviewed 07/02/19 @ 10:58 by DAFNE Walters) Mother Heart disease Sibling Family History: Family History (Last Reviewed 07/02/19 @ 10:58 by DAFNE Walters) Mother Heart disease - Physical Exam Vitals/I&O's: Vital Signs Temp Pulse Resp BP Pulse Ox 98 F 102 H 20 H 149/87 H 96 08/31/19 04:00 08/31/19 04:00 08/31/19 04:00 08/31/19 04:00 08/31/19 04:00 Oxygen Delivery Method Room Air Weight: 97.7 kg Body Mass Index (BMI) 30.9 Finger Stick Blood Glucose 152 Intake and Output for Last 24 Hours 08/29/19 08/30/19 08/31/19 23:59 23:59 23:59 Intake Total 2405.00 / 2405.00 1690 / 1690 Output Total 200 / 200 Balance 2205.00 / 2205.00 1690 / 1690 Laboratory Results 08/30/19 08:31: WBC 12.1 H, RBC 4.69, Hgb 14.6, Hct 42.4, MCV 90.4, MCH 31.1, MCHC 34.4, RDW Std Deviation 42.5, RDW Coeff of Armin 13.0, Plt Count 196, MPV 9.6, Immature Gran % (Auto) 0.400, Neut % (Auto) 60.9, Lymph % (Auto) 31.5, [place] % (Auto) 6.3, Eos % (Auto) 0.6, Baso % (Auto) 0.3, Absolute Neuts (auto) 7.4, Absolute Lymphs (auto) 3.82, Nucleated RBC % 0 08/30/19 08:31: Sodium 134 L, Potassium 3.8, Chloride 99, Carbon Dioxide 20.0 L, Anion Gap 15, BUN 12, Creatinine 1.26, Estim Creat Clear Calc 69.20, Est GFR (MDRD) Af Amer 77, Est GFR (MDRD) Non-Af 63, BUN/Creatinine Ratio 9.5 L, Glucose 201 H, Calcium 9.1, Total Bilirubin 0.50, AST 20, ALT 42, Alkaline Phosphatase 65, Troponin I < 0.015, Total Protein 8.0, Albumin 4.3, Globulin 3.7, Albumin/Globulin Ratio 1.2, Lipase 1036 H 08/30/19 08:31: Hemoglobin A1c 7.0 H 08/30/19 08:31: Magnesium 1.8 08/30/19 11:16: Troponin I < 0.015 08/30/19 11:30: Urine Color Yellow, Urine Clarity Clear, Urine pH 5.0, Ur Specific Junior 1.020, Urine Protein 30 H, Urine Glucose (UA) 100 H, Urine Ketones 15 H, Urine Occult Blood Negative, Urine Nitrite Negative, Urine Bilirubin Negative, Urine Urobilinogen Normal, Ur Leukocyte Esterase Negative, Urine RBC 0 SEEN, Urine WBC 0 SEEN, Ur Squamous Epith Cells 0 SEEN, Urine Bacteria 0 SEEN, Hyaline Casts 0-5 SEEN, Urine Mucus 0 SEEN 08/30/19 11:37: POC Glucose 189 H 08/30/19 14:15: Troponin I < 0.015 08/30/19 18:22: POC Glucose 199 H 08/30/19 20:13: POC Glucose 189 H 08/30/19 23:42: POC Glucose 211 H 08/31/19 06:07: POC Glucose 208 H 08/31/19 06:25: WBC 14.2 H, RBC 4.28 L, Hgb 13.4, Hct 38.7 L, MCV 90.4, MCH 31.3, MCHC 34.6, RDW Std Deviation 42.9, RDW Coeff of Armin 13.1, Plt Count 183, MPV 9.9, Immature Gran % (Auto) 0.400, Neut % (Auto) 74.0 H, Lymph % (Auto) 16.9 L, [place] % (Auto) 8.3, Eos % (Auto) 0.2, Baso % (Auto) 0.2, Absolute Neuts (auto) 10.5 H, Absolute Lymphs (auto) 2.40, Nucleated RBC % 0 08/31/19 06:25: Sodium 137, Potassium 3.6, Chloride 106, Carbon Dioxide 25.0, Anion Gap 6, BUN 10, Creatinine 1.20, Estim Creat Clear Calc 72.66, Est GFR (MDRD) Af Amer 81, Est GFR (MDRD) Non-Af 67, BUN/Creatinine Ratio 8.3 L, Glucose 214 H, Calcium 8.4 L, Total Bilirubin 1.00, AST 22, ALT 37, Alkaline Phosphatase 65, Total Protein 7.9, Albumin 4.1, Globulin 3.8, Albumin/Globulin Ratio 1.1, Triglycerides 274 H, Cholesterol 182, LDL Cholesterol 85, VLDL Cholesterol 55 H, HDL Cholesterol 42, Lipase 772 H 08/31/19 06:25: PT 14.3, INR 1.1 Current Medications Acetaminophen (Tylenol) 650 mg PO Q6H PRN PRN PRN Reason: Non-cardiac pain (mod-severe) Al Hydroxide/Mg Hydroxide (Mylanta Ii) 15 - 30 ml PO Q4H PRN PRN PRN Reason: INDIGESTION Albuterol Sulfate (Ventolin Aerosols) 2.5 mg INHALATION Q2H PRN PRN PRN Reason: dyspnea, wheezing Amitriptyline HCl (Elavil) 25 mg PO DAILY@2200 [facility] Last Admin: 08/30/19 20:01 Dose: 25 mg Documented by: Amlodipine Besylate (Norvasc) 5 mg PO DAILY [facility] Last Admin: 08/30/19 11:39 Dose: 5 mg Documented by: Aspirin (Aspirin, Baby) 81 mg PO DAILY@0800 [facility] Dextrose (D50w Syringe) 0 gm IV X1 PRN; Protocol PRN Reason: Hypoglycemia Fluticasone Propionate (Flonase Nasal [place]) 2 spray NASAL DAILY [facility] Last Admin: 08/30/19 11:39 Dose: 2 spray Documented by: Gabapentin (Neurontin) 300 mg PO TIDCM [facility] Last Admin: 08/30/19 17:00 Dose: Not Given Documented by: Glucagon () 1 mg IM .X1 PRN PRN Reason: Hypoglycemia Guaifenesin (Robitussin) 20 ml PO Q4H PRN PRN PRN Reason: COUGH Hydralazine HCl (Apresoline Iv) 10 mg IV Q4H PRN PRN PRN Reason: SBP > 160 Sodium Chloride () 1,000 mls @ 150 mls/hr IV .Q6H40M [facility] Last Infusion: 08/31/19 06:54 Dose: 0 mls/hr Documented by: Pantoprazole Sodium 40 mg/ (Sodium Chloride) 110 mls @ 330 mls/hr IV Q12 [facility] Last Infusion: 08/30/19 17:42 Dose: Infused Documented by: Insulin Glargine (Lantus (Bk)) 6 units SC QHS [facility] Last Admin: 08/30/19 21:07 Dose: Not Given Documented by: Insulin Human Lispro (Humalog Kwikpen ([facility])) 0 unit SC Q6 [facility]; Protocol Last Admin: 08/31/19 06:22 Dose: 2 units Documented by: Ketorolac Tromethamine (Toradol) 15 mg IV Q6H PRN PRN PRN Reason: Pain Score 1-10/10 Stop: 09/05/19 04:32 Latanoprost (Xalatan Opthalmic) 1 drop EACH EYE QHS [facility] Last Admin: 08/30/19 20:01 Dose: 1 drop Documented by: Levetiracetam (Keppra Tablet) 250 mg PO BID [facility] Last Admin: 08/30/19 20:01 Dose: 250 mg Documented by: Loratadine (Claritin) 10 mg PO DAILY [facility] Losartan Potassium (Cozaar) 50 mg PO DAILY [facility] Last Admin: 08/30/19 11:39 Dose: 50 mg Documented by: Magnesium Hydroxide (Milk Of Magnesia) 30 ml PO DAILY PRN PRN Reason: Constipation Magnesium Oxide (Mag-Ox 400) 400 mg PO BIDCM [facility] Last Admin: 08/30/19 16:11 Dose: Not Given Documented by: Ondansetron HCl (Zofran) 4 mg IV Q8H PRN PRN PRN Reason: NAUSEA/VOMITING Last Admin: 08/30/19 11:44 Dose: 4 mg Documented by: Polyethylene Glycol (Miralax) 17 gm PO DAILY [facility] Last Admin: 08/30/19 11:40 Dose: 17 gm Documented by: Pravastatin Sodium (Pravachol) 40 mg PO DAILY@2200 [facility] Last Admin: 08/30/19 20:01 Dose: 40 mg Documented by: Promethazine HCl (Phenergan) 12.5 mg IV Q4H PRN PRN PRN Reason: NAUSEA/VOMITING Sodium Chloride () 10 - 40 ml IV UD PRN PRN Reason: SALINE FLUSH Temazepam (Restoril) 15 mg PO QHS PRN PRN PRN Reason: INSOMNIA Throat Lozenges (Cepacol Sore Throat Lozenge) 1 lozenge MUCOUS MEM Q2H PRN PRN PRN Reason: Sore Throat/Cough Assessment/Plan The above consultation was reviewed and the patient examined. THe patient is known to me. He had a prior cholecystectomy and a history of PUD. He is on ASA. He quit smoking after his AL, he drinks occasionally, denies other substances. HE has a history of PTSD and stress. Agree that duodenal ulcer with pancreatic inflammation is possible etiology. will proceed with upper endoscopy
[2019-08-30] MEDS: Mag Hydrox/Al Hydrox/Simeth 30 ML UDC PO (16:10)
[2019-08-30 18:26] LABS: Bedside Glucose 199 mg/dL (70-110)
[2019-08-30] MEDS: Latanoprost 0.005% 1 Bottle 1 DRP EACH EYE (20:01)
[2019-08-30] MEDS: Amitriptyline 25 MG Tablet PO (20:01)
[2019-08-30] MEDS: Pravastatin 40 MG Tablet PO (20:01)
[2019-08-30 20:21] LABS: Bedside Glucose 189 mg/dL (70-110)
[2019-08-30 23:51] LABS: Bedside Glucose 211 mg/dL (70-110)
[2019-08-31] VITALS (14 sets, daily range): BP systolic 132–159; BP diastolic 72–98; PULSE 87–107; RESP 16–20; TEMP 36.6–37.1; O2SAT 92–98
--- NOTE | 2019-08-31 | IMM_PTH ---
PATIENT: BRANDON WELLER LOC: PCU U#:[id number] AGE/SX: 54/M ROOM: [facility] RE08/30/[address]: Dr. Luis Miguel Cortez MD : 1965 BED: 1 DIS: 09/03/2019 SPEC #: [id number] RECD: 09/02/19 10:22 STATUS: BHUPINDER REQ #: [id number] JOE: 08/31/19 00:[address]: Elmer Steen DEPT: IMMUNOHISTOCHEMISTRY RECD BY: Jayde Araiza ENTERED: 09/02/19 10:23 SP TYPE: IMMUNO OTHR DR: MD Dr. Luis Miguel Wiley MD [facility] Tissues: Gastric mucous membrane Procedures: H Pylori (initial) PHYSICIAN & INSTITUTION [place] [address] SPECIMEN INFORMATION: Tissue Source: Antrum biopsy Clinical Info: Abdominal pain Specimen Number: [id number] CPT code: 63134 METHODOLOGY: Deparaffinized sections of prefer/formalin-fixed tissue or PAP/DQ stained slides are incubated with monoclonal/polyclonal antibodies/oligonucleotide probes. Localization is made via biotin free immunoperoxidase method. Appropriate controls are performed and reacted as expected. Results on target cell population are indicated in the following table: RESULTS: ANTIBODY / CLONE RESULT Block A H Pylori (polyclonal) negative These tests were developed and their performance characteristics determined by [facility]. They may not have been cleared or approved by the U.S. Food and Drug Administration. The FDA has determined that such clearance or approval is not necessary. INTERPRETATION: A. Gastric antrum, biopsy: Negative for Helicobacter pylori organisms. AM:dawson 09/03/19
[2019-08-31] MEDS: Insulin Lispro 100 UNIT/ML INSULN.PEN SC ×5 (00:57→21:18)
[2019-08-31] MEDS: DiphenhydrAMINE 50 MG/ML Syringe 25 MG IV (00:57)
[2019-08-31] MEDS: 0.9% Normal Saline 1,000 ML 150 ML IV ×4 (00:58→21:31)
[2019-08-31] MEDS: HYDROmorphone 1 MG/ML Syringe IV (04:11)
--- NOTE | 2019-08-31 05:55 | EKG12_ITS ---
Test Reason : Blood Pressure : / mmHG Vent. Rate : 104 BPM Atrial Rate : 104 BPM P-R Int : 144 ms QRS Dur : 092 ms QT Int : 362 ms P-R-T Axes : 044 -16 010 degrees QTc Int : 476 ms Sinus tachycardia Minimal voltage criteria for LVH, may be normal variant Nonspecific T wave abnormality Abnormal ECG When compared with ECG of 30-AUG-2019 08:32, MANUAL COMPARISON REQUIRED, DATA IS UNCONFIRMED Confirmed by ZACHERY CADE, RAMON ([id number]), editor greeting card EDITH BARFIEDL ([id number]) on 09/01/2019 12:14:32 PM Referred By: Confirmed By:LIONEL BINGHAM MD
[2019-08-31 06:10] LABS: Bedside Glucose 208 mg/dL (70-110)
[2019-08-31 06:30] LABS: Absolute Neutrophil Count 10.5 X10^3/uL (2.0-7.7); Basophil# 0.03 X10^3/uL; Basophil% 0.2 % (0-1); Eosinophil# 0.03 X10^3/uL; Eosinophils% 0.2 % (0-5); Hematocrit 38.7 % (40-54); Hemoglobin 13.4 g/dL (13.0-16.5); Lymphocyte % 16.9 % (19-41); Mean Corp Hgb Conc 34.6 g/dL (32-36); Mean Corpuscular Hgb 31.3 pg (27.0-32.0); Mean Corpuscular Volume 90.4 fL (80-94); Mean Platelet Vol. 9.9 fl (6.2-12.0); Monocyte# 1.18 X10^3/uL; Monocyte% 8.3 % (0-10); NRBC Flagged by Analyzer 0 % (0-5); Neutrophil # 10.52 X10^3/uL (2.7-7.7); Platelet Count 183 K/mm3 (150-450); RBC Distribution Width CV 13.1 % (11.6-14.6); RBC Distribution Width SD 42.9 fl (35.1-43.9); Red Blood Count 4.28 M/mm3 (4.6-6.2); White Blood Count 14.2 K/mm3 (4.4-11.0)
[2019-08-31 06:39] LABS: International Normalized Ratio 1.1; Prothrombin Time (Protime)PT. 14.3 SECONDS (11.7-14.9)
[2019-08-31 06:47] LABS: ALB/GLOB Ratio 1.1 RATIO (0.9-2.4); AST(SGOT) 22 U/L (15-37); Alanine Aminotransfer ALT/SGPT 37 U/L (16-61); Albumin, Serum 4.1 g/dL (3.2-5.0); Alkaline Phosphatase 65 U/L (45-117); Anion Gap 6 (5-15); BUN 10 mg/dL (7-18); BUN/Creat Ratio 8.3 RATIO (10-20); Calcium,Total 8.4 mg/dL (8.5-10.1); Chloride 106 mmol/L (98-107); Cholesterol 182 mg/dL (200); EST Glomerular Filtration Rate 67 mL/min (>60); Est Glom Filt Rate - Afr Amer 81 mL/min (>60); Estimated Creatinine Clearance 72.66 ml/min; Globulin 3.8 g/dL (2.2-4.2); Glucose 214 mg/dL (74-106); High Density Lipoprotein 42 mg/dL; Lipase 772 U/L (73-393); Potassium 3.6 mmol/L (3.5-5.1); Protein, Total 7.9 g/dL (6.4-8.2); Sodium Level 137 mmol/L (136-145); Triglycerides 274 mg/dL; Very Low Density Lipoprotein 55 mg/dL (5-40)
--- NOTE | 2019-08-31 07:00 | EGD_PTH ---
PATIENT: BRANDON WELLER LOC: PCU U#:[id number] AGE/SX: 54/M ROOM: [facility] RE08/30/[address]: Dr. Luis Miguel Cortez MD : 1965 BED: 1 DIS: 09/03/2019 SPEC #: [id number] RECD: 08/31/19 09:45 STATUS: BHUPINDER REQ #: [id number] JOE: 08/31/19 07:[address]: Elmer Steen DEPT: SURGICAL PATHOLOGY RECD BY: Tyler Rey ENTERED: 09/02/19 09:46 SP TYPE: EGD BIOPSY [facility] DR: MD Dr. Luis Miguel Wiley MD [facility] Tissues: A - Gastric mucous membrane B - Esophageal mucous membrane Procedures: Surgery Specimen Level IV HEADER OPERATION: EGD ([facility] [place]) PRE-OP DIAGNOSIS: Abdominal pain TISSUE SUBMITTED: A. Antrum biopsy, B. Distal esophagus biopsy MICROSCOPIC DIAGNOSIS A. Antrum, biopsy: Minimal chronic inflammation. B. Distal esophagus, biopsy: Fragments of gastric mucosa with mild chronic inflammation. ALMA:danielle 09/03/19 COMMENT A. The results of immunohistochemistry for Helicobacter pylori will be reported separately ([id number]). Squamous mucosa not represented in the biopsy. Clinical correlation is suggested. MICROSCOPIC DESCRIPTION Slides are reviewed. GROSS DESCRIPTION A. Received is one container labeled with the patient name and designated antrum biopsy for H. Pylori. The specimen consists of one irregular fragment of light gabriel soft tissue that measures 0.3 x 0.2 x 0.1 cm. The specimen is totally submitted in one cassette. B. Received is one container labeled with the patient name and designated distal esophagus biopsy. The specimen consists of two irregular fragments of light gabriel soft tissue that measure 0.2 x 0.2 x 0.1 cm in aggregate. The specimen is totally submitted in one cassette. QUINTON:danielle 09/02/19 TC: 3 CPT: 25599
--- NOTE | 2019-08-31 07:27 | PN.SURG_ITS ---
Patient Problems: Active and Suspected Problems (Last Reviewed 07/02/19 @ 10:58 by DAFNE Walters) Acute pancreatitis (Acute) Chest pain (Acute) Subjective: epigastric pain - Physical Exam Vitals/I&O's: Vital Signs Temp Pulse Resp BP Pulse Ox 98 F 101 H 20 H 149/87 H 96 08/31/19 04:00 08/31/19 06:57 08/31/19 04:00 08/31/19 04:00 08/31/19 04:00 Oxygen Delivery Method Room Air Weight: 97.7 kg Body Mass Index (BMI) 30.9 Finger Stick Blood Glucose 152 Intake and Output for Last 24 Hours 08/29/19 08/30/19 08/31/19 23:59 23:59 23:59 Intake Total 2405.00 / 2405.00 1690 / 1690 Output Total 200 / 200 Balance 2205.00 / 2205.00 1690 / 1690 General: Alert, Oriented x3, Cooperative Lungs: Clear to auscultation, Normal air movement Cardiovascular: Regular rate, No murmurs Abdomen: Bowel Sounds Present, Soft, Tender - epigastric and supraumbilical area Laboratory Results 08/30/19 08:31: WBC 12.1 H, RBC 4.69, Hgb 14.6, Hct 42.4, MCV 90.4, MCH 31.1, MCHC 34.4, RDW Std Deviation 42.5, RDW Coeff of Armin 13.0, Plt Count 196, MPV 9.6, Immature Gran % (Auto) 0.400, Neut % (Auto) 60.9, Lymph % (Auto) 31.5, [place] % (Auto) 6.3, Eos % (Auto) 0.6, Baso % (Auto) 0.3, Absolute Neuts (auto) 7.4, Absolute Lymphs (auto) 3.82, Nucleated RBC % 0 08/30/19 08:31: Sodium 134 L, Potassium 3.8, Chloride 99, Carbon Dioxide 20.0 L, Anion Gap 15, BUN 12, Creatinine 1.26, Estim Creat Clear Calc 69.20, Est GFR (MDRD) Af Amer 77, Est GFR (MDRD) Non-Af 63, BUN/Creatinine Ratio 9.5 L, Glucose 201 H, Calcium 9.1, Total Bilirubin 0.50, AST 20, ALT 42, Alkaline Phosphatase 65, Troponin I < 0.015, Total Protein 8.0, Albumin 4.3, Globulin 3.7, Albumin/Globulin Ratio 1.2, Lipase 1036 H 08/30/19 08:31: Hemoglobin A1c 7.0 H 08/30/19 08:31: Magnesium 1.8 08/30/19 11:16: Troponin I < 0.015 08/30/19 11:30: Urine Color Yellow, Urine Clarity Clear, Urine pH 5.0, Ur Specific [place] 1.020, Urine Protein 30 H, Urine Glucose (UA) 100 H, Urine Ketones 15 H, Urine Occult Blood Negative, Urine Nitrite Negative, Urine Bilirubin Negative, Urine Urobilinogen Normal, Ur Leukocyte Esterase Negative, Urine RBC 0 SEEN, Urine WBC 0 SEEN, Ur Squamous Epith Cells 0 SEEN, Urine Bacteria 0 SEEN, Hyaline Casts 0-5 SEEN, Urine Mucus 0 SEEN 08/30/19 11:37: POC Glucose 189 H 08/30/19 14:15: Troponin I < 0.015 08/30/19 18:22: POC Glucose 199 H 08/30/19 20:13: POC Glucose 189 H 08/30/19 23:42: POC Glucose 211 H 08/31/19 06:07: POC Glucose 208 H 08/31/19 06:25: WBC 14.2 H, RBC 4.28 L, Hgb 13.4, Hct 38.7 L, MCV 90.4, MCH 31.3, MCHC 34.6, RDW Std Deviation 42.9, RDW Coeff of Armin 13.1, Plt Count 183, MPV 9.9, Immature Gran % (Auto) 0.400, Neut % (Auto) 74.0 H, Lymph % (Auto) 16.9 L, [place] % (Auto) 8.3, Eos % (Auto) 0.2, Baso % (Auto) 0.2, Absolute Neuts (auto) 10.5 H, Absolute Lymphs (auto) 2.40, Nucleated RBC % 0 08/31/19 06:25: Sodium 137, Potassium 3.6, Chloride 106, Carbon Dioxide 25.0, Anion Gap 6, BUN 10, Creatinine 1.20, Estim Creat Clear Calc 72.66, Est GFR (MDRD) Af Amer 81, Est GFR (MDRD) Non-Af 67, BUN/Creatinine Ratio 8.3 L, Glucose 214 H, Calcium 8.4 L, Total Bilirubin 1.00, AST 22, ALT 37, Alkaline Phosphatase 65, Total Protein 7.9, Albumin 4.1, Globulin 3.8, Albumin/Globulin Ratio 1.1, Triglycerides 274 H, Cholesterol 182, LDL Cholesterol 85, VLDL Cholesterol 55 H, HDL Cholesterol 42, Lipase 772 H 08/31/19 06:25: PT 14.3, INR 1.1 Current Medications Acetaminophen (Tylenol) 650 mg PO Q6H PRN PRN PRN Reason: Non-cardiac pain (mod-severe) Al Hydroxide/Mg Hydroxide (Mylanta Ii) 15 - 30 ml PO Q4H PRN PRN PRN Reason: INDIGESTION Albuterol Sulfate (Ventolin Aerosols) 2.5 mg INHALATION Q2H PRN PRN PRN Reason: dyspnea, wheezing Amitriptyline HCl (Elavil) 25 mg PO DAILY@2200 [facility] Last Admin: 08/30/19 20:01 Dose: 25 mg Documented by: Amlodipine Besylate (Norvasc) 5 mg PO DAILY [facility] Last Admin: 08/30/19 11:39 Dose: 5 mg Documented by: Aspirin (Aspirin, Baby) 81 mg PO DAILY@0800 [facility] Dextrose (D50w Syringe) 0 gm IV X1 PRN; Protocol PRN Reason: Hypoglycemia Fluticasone Propionate (Flonase Nasal [place]) 2 spray NASAL DAILY [facility] Last Admin: 08/30/19 11:39 Dose: 2 spray Documented by: Gabapentin (Neurontin) 300 mg PO TIDCM [facility] Last Admin: 08/30/19 17:00 Dose: Not Given Documented by: Glucagon () 1 mg IM .X1 PRN PRN Reason: Hypoglycemia Guaifenesin (Robitussin) 20 ml PO Q4H PRN PRN PRN Reason: COUGH Hydralazine HCl (Apresoline Iv) 10 mg IV Q4H PRN PRN PRN Reason: SBP > 160 Sodium Chloride () 1,000 mls @ 150 mls/hr IV .Q6H40M [facility] Last Infusion: 08/31/19 06:54 Dose: 0 mls/hr Documented by: Pantoprazole Sodium 40 mg/ (Sodium Chloride) 110 mls @ 330 mls/hr IV Q12 [facility] Last Infusion: 08/30/19 17:42 Dose: Infused Documented by: Insulin Glargine (Lantus ([facility])) 6 units SC QHS [facility] Last Admin: 08/30/19 21:07 Dose: Not Given Documented by: Insulin Human Lispro (Humalog Kwikpen ([facility])) 0 unit SC Q6 [facility]; Protocol Last Admin: 08/31/19 06:22 Dose: 2 units Documented by: Ketorolac Tromethamine (Toradol) 15 mg IV Q6H PRN PRN PRN Reason: Pain Score 1-10/10 Stop: 09/05/19 04:32 Latanoprost (Xalatan Opthalmic) 1 drop EACH EYE QHS [facility] Last Admin: 08/30/19 20:01 Dose: 1 drop Documented by: Levetiracetam (Keppra Tablet) 250 mg PO BID [facility] Last Admin: 08/30/19 20:01 Dose: 250 mg Documented by: Loratadine (Claritin) 10 mg PO DAILY [facility] Losartan Potassium (Cozaar) 50 mg PO DAILY [facility] Last Admin: 08/30/19 11:39 Dose: 50 mg Documented by: Magnesium Hydroxide (Milk Of Magnesia) 30 ml PO DAILY PRN PRN Reason: Constipation Magnesium Oxide (Mag-Ox 400) [facility] Last Admin: 08/30/19 16:11 Dose: Not Given Documented by: Ondansetron HCl (Zofran) 4 mg IV Q8H PRN PRN PRN Reason: NAUSEA/VOMITING Last Admin: 08/30/19 11:44 Dose: 4 mg Documented by: Polyethylene Glycol (Miralax) 17 gm PO DAILY [facility] Last Admin: 08/30/19 11:40 Dose: 17 gm Documented by: Pravastatin Sodium (Pravachol) 40 mg PO DAILY@2200 [facility] Last Admin: 08/30/19 20:01 Dose: 40 mg Documented by: Promethazine HCl (Phenergan) 12.5 mg IV Q4H PRN PRN PRN Reason: NAUSEA/VOMITING Sodium Chloride () 10 - 40 ml IV UD PRN PRN Reason: SALINE FLUSH Temazepam (Restoril) 15 mg PO QHS PRN PRN PRN Reason: INSOMNIA Throat Lozenges (Cepacol Sore Throat Lozenge) 1 lozenge MUCOUS MEM Q2H PRN PRN PRN Reason: Sore Throat/Cough Medical Necessity - Tobacco Use Smoking Status: Former smoker Tobacco Use: Non-smoker Assessment/Plan All Active Problems (Last Reviewed 07/02/19 @ 10:58 by DAFNE Walters) Acute pancreatitis (Acute) Chest pain (Acute) Bleeding hemorrhoids (Acute) Hematochezia (Acute) Lower GI bleeding (Acute) Displacement of cervical intervertebral disc without myelopathy (Resolved) Syncope (Resolved) Tobacco dependence syndrome (Resolved) The above consultation was reviewed and the patient examined. The patient is known to me. He had a prior cholecystectomy and a history of PUD. He is on ASA. He quit smoking after his [place], he drinks occasionally, denies other subst ances. HE has a history of PTSD and stress. Agree that duodenal ulcer with pancreatic inflammation is possible etiology. Upper endoscopy demonstrated a normal appearing duodenum. There was mild to moderate gastritis, but more proximal, a small hiatal hernia and distal esophagitis suspicious for Vasquez's esophagitis. OK to start clears. continue PPI's await path.
--- NOTE | 2019-08-31 07:27 | OP.EGD_ITS ---
Patient Name: Bronson Ochoa Procedure Date: 08/31/2019 7:02 AM Date of : 1965 Age: 54 Procedure: Upper GI endoscopy Indications: Epigastric abdominal pain, Suspected peptic ulcer Providers: Elmer Steen MD Medicines: Monitored Anesthesia Care Patient Profile: This is a 54 year old male. Refer to note in patient chart for documentation of history and physical. Complications: No immediate complications. Procedure: Pre-Anesthesia Assessment: - Prior to the procedure, a History and Physical was performed, and patient medications and allergies were reviewed. The patient is competent. The risks and benefits of the procedure and the sedation options and risks were discussed with the patient. All questions were answered and informed consent was obtained. Patient identification and proposed procedure were verified by the physician, the nurse and the anesthesiologist in the procedure room. Mental Status Examination: alert and oriented. Airway Examination: normal oropharyngeal airway and neck mobility. Respiratory Examination: clear to auscultation. CV Examination: normal. Prophylactic Antibiotics: The patient does not require prophylactic antibiotics. Prior Anticoagulants: The patient has taken no previous anticoagulant or antiplatelet agents. ASA Grade Assessment: III - A patient with severe systemic disease. After reviewing the risks and benefits, the patient was deemed in satisfactory condition to undergo the procedure. The anesthesia plan was to use monitored anesthesia care (MAC). Immediately prior to administration of medications, the patient was re-assessed for adequacy to receive sedatives. The heart rate, respiratory rate, oxygen saturations, blood pressure, adequacy of pulmonary ventilation, and response to care were monitored throughout the procedure. The physical status of the patient was re-assessed after the procedure. After obtaining informed consent, the endoscope was passed under direct vision. Throughout the procedure, the patient's blood pressure, pulse, and oxygen saturations were monitored continuously. The gastroscope was introduced through the mouth, and advanced to the jejunum. The patient tolerated the procedure well. Scope In: 7:16:08 AM Scope Out: 7:21:09 AM Total Procedure Duration Time 0 hours 5 minutes 1 second Findings: The examined jejunum was normal. The examined duodenum was normal. Scattered moderate inflammation characterized by erythema, friability and granularity was found in the entire examined stomach. Biopsies were taken with a cold forceps for Helicobacter pylori testing using PyloriTek test. Biopsies were taken with a cold forceps for histology. A small hiatal hernia was present. Mildly severe esophagitis with no bleeding was found. Biopsies were taken with a cold forceps for histology. Impression: - Normal examined jejunum. - Normal examined duodenum. - Gastritis. Biopsied. - Small hiatal hernia. - Mildly severe reflux esophagitis. Rule out Vasquez's esophagus. Biopsied. Recommendation: - Return patient to [facility] for ongoing care. - Clear liquid diet. - Continue present medications. - Await pathology results. Procedure Code(s): --- Professional --- 09206, Esophagogastroduodenoscopy, flexible, transoral; with biopsy, single or multiple CPT copyright 2017 [employer]. All rights reserved. The codes documented in this report are preliminary and upon remote medical coder review may be revised to meet current compliance requirements. Elmer Steen MD 08/31/2019 7:27:07 AM This report has been signed electronically. Number of Addenda: 0 Note Initiated On: 08/31/2019 7:02 AM
[2019-08-31] MEDS: 0.9% Saline Lock 10 ML Syringe IV ×2 (08:12→14:30)
[2019-08-31] MEDS: Ketorolac 15 MG/ML Vial IV ×3 (08:12→20:32)
--- NOTE | 2019-08-31 08:43 | PCM.PN.HOSP ---
Patient Problems: Active and Suspected Problems (Last Reviewed 07/02/19 @ 10:58 by DAFNE Walters) Acute pancreatitis (Acute) Chest pain (Acute) Subjective: Patient overnight with improvement of abdominal discomfort, EGD this morning per surgery with noted gastritis with recommendation for continued PPI with allowance of clears. Patient upon discussion very eager for clears initiation and examination markedly improved, abdomen soft and no rebound or guarding like the day prior. Reviewed again recent results including CT scan with no acute findings. Only complaint per patient currently is that his feet itch and are dry. Patient denies fevers, chills, nausea, emesis, worsened abdominal pain, chest pain or dyspnea. Objective: Physical Examination: General: awake, alert, oriented x 3 and cooperative, seated upright in bed in no apparent distress, notably improved from day prior. Skin: normal color, turgor, no icterus, cyanosis, dry skin to his lower extremities and feet. HEENT: AT/NC, EOMI, PERRLA, mildly dry MM. Lungs: CTA bilaterally, moderate effort, moderate decrease BL bases, no rales, ronchi or wheezing. Heart: Regular rate and rhythm; no gallop, rub audible. Abdomen: soft, obese, notably improved, minimal discomfort to bilateral upper quadrant and epigastric regions, no rebound or guarding which was severe yesterday, perhaps mildly distended, hyperactive bowel sounds currently. Extremities: no cyanosis, clubbing, or edema, see skin. Neurological: patient awake, alert, oriented x 3; cognitive function intact; pupils equally reactive to light and accomodation; cranial nerves II-XII grossly normal, moving all 4 extremities, no focal deficits, strength improved, mildly global decreased. Psychiatric: affect appears normal, more comfortable, no acute evidence of depressive or anxiety feelings. Vitals/I&O's: Vital Signs Temp Pulse Resp BP Pulse Ox 98.3 F 106 H 18 144/95 H 92 08/31/19 08:00 08/31/19 08:00 08/31/19 08:00 08/31/19 08:00 08/31/19 08:00 Oxygen Delivery Method Room Air Weight: 215 lb 6.266 oz Body Mass Index (BMI) 30.9 Finger Stick Blood Glucose 152 Intake and Output for Last 24 Hours 08/29/19 08/30/19 08/31/19 23:59 23:59 23:59 Intake Total 2405.00 / 2405.00 1690 / 1690 Output Total 200 / 200 Balance 2205.00 / 2205.00 1690 / 1690 Laboratory Results 08/30/19 08:31: Sodium 134 L, Potassium 3.8, Chloride 99, Carbon Dioxide 20.0 L, Anion Gap 15, BUN 12, Creatinine 1.26, Estim Creat Clear Calc 69.20, Est GFR (MDRD) Af Amer 77, Est GFR (MDRD) Non-Af 63, BUN/Creatinine Ratio 9.5 L, Glucose 201 H, Calcium 9.1, Total Bilirubin 0.50, AST 20, ALT 42, Alkaline Phosphatase 65, Troponin I < 0.015, Total Protein 8.0, Albumin 4.3, Globulin 3.7, Albumin/Globulin Ratio 1.2, Lipase 1036 H 08/30/19 08:31: Hemoglobin A1c 7.0 H 08/30/19 08:31: Magnesium 1.8 08/30/19 11:16: Troponin I < 0.015 08/30/19 11:30: Urine Color Yellow, Urine Clarity Clear, Urine pH 5.0, Ur Specific [place] 1.020, Urine Protein 30 H, Urine Glucose (UA) 100 H, Urine Ketones 15 H, Urine Occult Blood Negative, Urine Nitrite Negative, Urine Bilirubin Negative, Urine Urobilinogen Normal, Ur Leukocyte Esterase Negative, Urine RBC 0 SEEN, Urine WBC 0 SEEN, Ur Squamous Epith Cells 0 SEEN, Urine Bacteria 0 SEEN, Hyaline Casts 0-5 SEEN, Urine Mucus 0 SEEN 08/30/19 11:37: POC Glucose 189 H 08/30/19 14:15: Troponin I < 0.015 08/30/19 18:22: POC Glucose 199 H 08/30/19 20:13: POC Glucose 189 H 08/30/19 23:42: POC Glucose 211 H 08/31/19 06:07: POC Glucose 208 H 08/31/19 06:25: WBC 14.2 H, RBC 4.28 L, Hgb 13.4, Hct 38.7 L, MCV 90.4, MCH 31.3, MCHC 34.6, RDW Std Deviation 42.9, RDW Coeff of Armin 13.1, Plt Count 183, MPV 9.9, Immature Gran % (Auto) 0.400, Neut % (Auto) 74.0 H, Lymph % (Auto) 16.9 L, [place] % (Auto) 8.3, Eos % (Auto) 0.2, Baso % (Auto) 0.2, Absolute Neuts (auto) 10.5 H, Absolute Lymphs (auto) 2.40, Nucleated RBC % 0 08/31/19 06:25: Sodium 137, Potassium 3.6, Chloride 106, Carbon Dioxide 25.0, Anion Gap 6, BUN 10, Creatinine 1.20, Estim Creat Clear Calc 72.66, Est GFR (MDRD) Af Amer 81, Est GFR (MDRD) Non-Af 67, BUN/Creatinine Ratio 8.3 L, Glucose 214 H, Calcium 8.4 L, Total Bilirubin 1.00, AST 22, ALT 37, Alkaline Phosphatase 65, Total Protein 7.9, Albumin 4.1, Globulin 3.8, Albumin/Globulin Ratio 1.1, Triglycerides 274 H, Cholesterol 182, LDL Cholesterol 85, VLDL Cholesterol 55 H, HDL Cholesterol 42, Lipase 772 H 08/31/19 06:25: PT 14.3, INR 1.1 Current Medications Acetaminophen (Tylenol) 650 mg PO Q6H PRN PRN PRN Reason: Non-cardiac pain (mod-severe) Al Hydroxide/Mg Hydroxide (Mylanta Ii) 15 - 30 ml PO Q4H PRN PRN PRN Reason: INDIGESTION Albuterol Sulfate (Ventolin Aerosols) 2.5 mg INHALATION Q2H PRN PRN PRN Reason: dyspnea, wheezing Amitriptyline HCl (Elavil) 25 mg PO DAILY@2200 [facility] Last Admin: 08/30/19 20:01 Dose: 25 mg Documented by: Amlodipine Besylate (Norvasc) 5 mg PO DAILY [facility] Last Admin: 08/30/19 11:39 Dose: 5 mg Documented by: Aspirin (Aspirin, Baby) 81 mg PO DAILY@0800 [facility] Dextrose (D50w Syringe) 0 gm IV X1 PRN; Protocol PRN Reason: Hypoglycemia Emollient Ointment (Eucerin Intensive Repair) 1 applic TOPICAL 4X/DAY PRN PRN; Protocol PRN Reason: DRY SKIN Fluticasone Propionate (Flonase Nasal [place]) 2 spray NASAL DAILY [facility] Last Admin: 08/30/19 11:39 Dose: 2 spray Documented by: Gabapentin (Neurontin) 300 mg PO TIDCM [facility] Last Admin: 08/30/19 17:00 Dose: Not Given Documented by: Glucagon () 1 mg IM .X1 PRN PRN Reason: Hypoglycemia Guaifenesin (Robitussin) 20 ml PO Q4H PRN PRN PRN Reason: COUGH Hydralazine HCl (Apresoline Iv) 10 mg IV Q4H PRN PRN PRN Reason: SBP > 160 Sodium Chloride () 1,000 mls @ 150 mls/hr IV .Q6H40M [facility] Last Admin: 08/31/19 08:18 Dose: 150 mls/hr Documented by: Insulin Glargine (Lantus ([facility])) 6 units SC QHS [facility] Last Admin: 08/30/19 21:07 Dose: Not Given Documented by: Insulin Human Lispro (Humalog Kwikpen ([facility])) 0 unit SC ACHS [facility]; Protocol Ketorolac Tromethamine (Toradol) 15 mg IV Q6H PRN PRN PRN Reason: Pain Score 1-10/10 Stop: 09/05/19 04:32 Last Admin: 08/31/19 08:12 Dose: 15 mg Documented by: Latanoprost (Xalatan Opthalmic) 1 drop EACH EYE QHS [facility] Last Admin: 08/30/19 20:01 Dose: 1 drop Documented by: Levetiracetam (Keppra Tablet) 250 mg PO BID [facility] Last Admin: 08/30/19 20:01 Dose: 250 mg Documented by: Loratadine (Claritin) 10 mg PO DAILY [facility] Losartan Potassium (Cozaar) 50 mg PO DAILY [facility] Last Admin: 08/30/19 11:39 Dose: 50 mg Documented by: Magnesium Hydroxide (Milk Of Magnesia) 30 ml PO DAILY PRN PRN Reason: Constipation [facility] ([facility]Ox 400) [facility] Last Admin: 08/30/19 16:11 Dose: Not Given Documented by: Ondansetron HCl (Zofran) 4 mg IV Q8H PRN PRN PRN Reason: NAUSEA/VOMITING Last Admin: 08/30/19 11:44 Dose: 4 mg Documented by: Pantoprazole Sodium (Protonix) 40 mg PO BID [facility] Polyethylene Glycol (Miralax) 17 gm PO DAILY [facility] Last Admin: 08/30/19 11:40 Dose: 17 gm Documented by: Pravastatin Sodium (Pravachol) 40 mg PO DAILY@2200 [facility] Last Admin: 08/30/19 20:01 Dose: 40 mg Documented by: Promethazine HCl (Phenergan) 12.5 mg IV Q4H PRN PRN PRN Reason: NAUSEA/VOMITING Sodium Chloride () 10 - 40 ml IV UD PRN PRN Reason: SALINE FLUSH Last Admin: 08/31/19 08:12 Dose: 20 ml Documented by: Temazepam (Restoril) 15 mg PO QHS PRN PRN PRN Reason: INSOMNIA Throat Lozenges (Cepacol Sore Throat Lozenge) 1 lozenge MUCOUS MEM Q2H PRN PRN PRN Reason: Sore Throat/Cough STROKE Vital Signs/Narrative: Vital Signs Temp Pulse Resp BP Pulse Ox 08/31/19 08:00 98.3 F 106 H 18 144/95 H 92 08/31/19 07:40 98.0 F 99 16 146/93 H 94 08/31/19 07:35 100 16 141/98 H 95 08/31/19 07:30 100 16 142/91 H 97 08/31/19 07:25 98.0 F 100 16 142/91 H 95 08/31/19 06:57 101 H Medical Necessity - Tobacco Use Smoking Status: Former smoker Tobacco Use: Non-smoker Assessment/Plan All Active Problems (Last Reviewed 07/02/19 @ 10:58 by DAFNE Walters) Acute pancreatitis (Acute) Chest pain (Acute) Bleeding hemorrhoids (Acute) Hematochezia (Acute) Lower GI bleeding (Acute) Displacement of cervical intervertebral disc without myelopathy (Resolved) Syncope (Resolved) Tobacco dependence syndrome (Resolved) The patient is a 54 y/o F w/ PMHx: Nonobstructive CAD, Anxiety and Depression/PTSD, GERD w/ hx Gastric ulcer, Hx ? Seizures, Prior Pancreatitis s/p cholecystectomy, Diabetes mellitus type II, HTN, HLD who presents to the [facility] 08/[facility] who presents with onset abdominal pain, awoke him at 5 am, epigastric with radiation toward his back, 10/10 in severity, continuous, sharp with nausea without emesis. 1. Acute pancreatitis w/ abdominal pain, N: Admission CBC w/ WBC 12.1 without shift, CMP w/ with sodium 134, carbon dioxide 20, glucose 201 otherwise unremarkable, Lipase 1036. Admitted to the PCU given concurrent EKG changes, maintain on IVFs, NPO initially, IV PPI initially, IV/po pain control, trend lipase, CMP. Patient is status post cholecystectomy prior, lipid panel not severe appearing, denies alcohol as etiology, given prior history of GERD with gastric ulcer discussed case with general surgeon, Dr. Steen. 08/31/19 EGD w/ gastritis noted, pathology pending. Cleared to start clears, transition to po PPI. 08/31/19 lipase 772. Continue to trend, once tolerating diet, pain controlled would plan discharge to home with follow-up with Dr. Steen. 2. Chest pain, suspected secondary to #1 with EKG changes: EKG in ED nonspecific ST changes new from prior, initial troponin less than 0.015. Maintained on a monitored bed to assure no acute myocardial infarction with serial cardiac enzymes and EKGs which remained unremarkable. ASA, NG, fentanyl given allergies and noted hypotension with Dilaudid. Mag 1.8. 3. Nonobstructive CAD: Notes history of CAD but notes that cardiac catheterization was possibly unremarkable remotely, will maintain on aspirin, losartan, not on beta-slick therapy, continue statin. Mag 1.8. 4. Hypertension: Continue home regimen including amlodipine, losartan, holding hydrochlorothiazide given acute presentation as noted above #1, PRN hydralazine. 5. Hyperlipidemia: Continue home statin regimen. AM FLP w/ triglycerides 274, total cholesterol 182, LDL 85, VLDL 55, HDL 42.. 6. Diabetes mellitus type II: Hold oral home regimen, continue home insulin regimen, allowance of clears w/ transition to ACHS accu checks w/ ISS, HgbA1c obtained 7.0%. 7. Seizure disorder: We will continue patient home Keppra regimen. 8. GERD with history gastric ulcer: Transition IV PPI to oral regimen, starting clears. 9. Anxiety and Depression/PTSD: From current regimen listed not on appropriate regimen, encourage continued follow-up with primary care physician and initiation of appropriate regimen if felt necessary outpatient. 10. DVT prophylaxis: SCDs, defer chemoprophylaxis given #1, continue aspirin therapy given #2. Code Visit Inpatient E&M: 62446 Subs Hosp L2
[2019-08-31] MEDS: Aspirin 81 MG TAB.CHEW PO (09:07)
[2019-08-31] MEDS: Magnesium Oxide 400 MG Tablet PO ×2 (09:07→16:21)
[2019-08-31] MEDS: Losartan Potassium 50 MG Tablet PO (09:08)
[2019-08-31] MEDS: Loratadine 10 MG Tablet PO (09:08)
[2019-08-31] MEDS: Gabapentin 300 MG Capsule PO ×3 (09:08→16:21)
[2019-08-31] MEDS: Fluticasone 0.05% 1 SPRAY NASAL.SRY 2 SPRAY NASAL (09:09)
[2019-08-31] MEDS: levETIRAcetam 250 MG Tablet PO ×2 (09:10→21:22)
[2019-08-31] MEDS: amLODIPine 5 MG Tablet PO (09:10)
[2019-08-31] MEDS: Polyethylene Glycol 3350 17 GM PACKET PO (09:15)
[2019-08-31] MEDS: Pantoprazole Sodium 40 MG Tablet PO ×2 (09:55→21:22)
[2019-08-31 11:25] LABS: Bedside Glucose 213 mg/dL (70-110)
--- NOTE | 2019-08-31 12:45 | NURSING ---
This nurse reviewed charting of SN Franny
--- NOTE | 2019-08-31 12:49 | NURSING ---
Pt states pain in stomach 7 out of 10. Pt describes pain as a sharp oain. Pt states nothing is needed other than pain control. Nurse notified of pain. told nurse that i am leaving the floor and asked if she needed anything the nurses stated no.
[2019-08-31 16:26] LABS: Bedside Glucose 164 mg/dL (70-110)
[2019-08-31] MEDS: Amitriptyline 25 MG Tablet PO (21:22)
[2019-08-31] MEDS: Pravastatin 40 MG Tablet PO (21:22)
[2019-08-31] MEDS: Latanoprost 0.005% 1 Bottle 1 DRP EACH EYE (21:22)
[2019-08-31 22:31] LABS: Bedside Glucose 188 mg/dL (70-110)
[2019-09-01] VITALS (10 sets, daily range): BP systolic 142–149; BP diastolic 87–98; PULSE 80–97; RESP 17–20; TEMP 36.4–36.8; O2SAT 95–97
[2019-09-01] MEDS: Ketorolac 15 MG/ML Vial IV ×4 (03:34→22:44)
[2019-09-01] MEDS: 0.9% Normal Saline 1,000 ML 150 ML IV ×4 (03:37→22:58)
[2019-09-01] MEDS: Insulin Lispro 100 UNIT/ML INSULN.PEN SC ×3 (06:41→22:53)
[2019-09-01 06:55] LABS: Bedside Glucose 169 mg/dL (70-110)
[2019-09-01 07:10] LABS: Absolute Lymphocyte Count 2.47 X10^3/uL (0.83-4.51); Absolute Neutrophil Count 5.2 X10^3/uL (2.0-7.7); Basophil# 0.02 X10^3/uL; Basophil% 0.2 % (0-1); Eosinophils% 1.2 % (0-5); Hematocrit 39.3 % (40-54); Hemoglobin 13.2 g/dL (13.0-16.5); Lymphocyte # 2.47 X10^3/ul (4.0); Lymphocyte % 29.8 % (19-41); Mean Corp Hgb Conc 33.6 g/dL (32-36); Mean Corpuscular Hgb 30.8 pg (27.0-32.0); Mean Corpuscular Volume 91.6 fL (80-94); Mean Platelet Vol. 9.8 fl (6.2-12.0); NRBC Flagged by Analyzer 0 % (0-5); Neutrophil # 5.16 X10^3/uL (2.7-7.7); Neutrophil % 62.4 % (47-70); Platelet Count 165 K/mm3 (150-450); RBC Distribution Width CV 13.2 % (11.6-14.6); RBC Distribution Width SD 44.5 fl (35.1-43.9); Red Blood Count 4.29 M/mm3 (4.6-6.2); White Blood Count 8.3 K/mm3 (4.4-11.0)
[2019-09-01 07:29] LABS: ALB/GLOB Ratio 0.9 RATIO (0.9-2.4); AST(SGOT) 16 U/L (15-37); Alanine Aminotransfer ALT/SGPT 28 U/L (16-61); Albumin, Serum 3.5 g/dL (3.2-5.0); Alkaline Phosphatase 59 U/L (45-117); Anion Gap 5 (5-15); BUN 7 mg/dL (7-18); BUN/Creat Ratio 6.6 RATIO (10-20); Chloride 111 mmol/L (98-107); Creatinine, Serum 1.06 mg/dL (0.70-1.30); EST Glomerular Filtration Rate 77 mL/min (>60); Est Glom Filt Rate - Afr Amer 94 mL/min (>60); Estimated Creatinine Clearance 82.26 ml/min; Globulin 3.7 g/dL (2.2-4.2); Glucose 178 mg/dL (74-106); Lipase 635 U/L (73-393); Protein, Total 7.2 g/dL (6.4-8.2); Sodium Level 140 mmol/L (136-145)
[2019-09-01] MEDS: Magnesium Oxide 400 MG Tablet PO ×2 (09:11→16:33)
[2019-09-01] MEDS: Losartan Potassium 50 MG Tablet PO (09:11)
[2019-09-01] MEDS: Loratadine 10 MG Tablet PO (09:11)
[2019-09-01] MEDS: Aspirin 81 MG TAB.CHEW PO (09:11)
[2019-09-01] MEDS: Gabapentin 300 MG Capsule PO ×3 (09:11→16:33)
[2019-09-01] MEDS: Fluticasone 0.05% 1 SPRAY NASAL.SRY 2 SPRAY NASAL (09:11)
[2019-09-01] MEDS: Pantoprazole Sodium 40 MG Tablet PO ×2 (09:12→22:48)
[2019-09-01] MEDS: Polyethylene Glycol 3350 17 GM PACKET PO (09:12)
[2019-09-01] MEDS: levETIRAcetam 250 MG Tablet PO ×2 (09:12→22:48)
[2019-09-01] MEDS: amLODIPine 5 MG Tablet PO (09:12)
[2019-09-01] MEDS: 0.9% Saline Lock 10 ML Syringe IV ×2 (10:02→16:27)
--- NOTE | 2019-09-01 10:18 | PN_ITS ---
Patient Problems: Active and Suspected Problems (Last Reviewed 07/02/19 @ 10:58 by DAFNE Waletrs) Acute pancreatitis (Acute) Chest pain (Acute) Subjective: The patient is a 54 y/o F w/ PMHx: Nonobstructive CAD, Anxiety and Depression/PTSD, GERD w/ hx Gastric ulcer, Hx ? Seizures, Prior Pancreatitis s/p cholecystectomy, Diabetes mellitus type II, HTN, HLD who presents to the [facility] on 08/30/19 who presents with onset abdominal pain, awoke him at 5 am, epigastric with radiation toward his back, 10/10 in severity, continuous, sharp with nausea without emesis. Admission CBC w/ WBC 12.1 without shift, CMP w/ with sodium 134, carbon dioxide 20, glucose 201 otherwise unremarkable, Lipase 1036. Admitted to the PCU given concurrent EKG changes, maintain on IVFs, NPO initially, IV PPI initially, IV/po pain control, trend lipase, CMP. Patient is status post cholecystectomy prior, lipid panel not severe appearing, denies alcohol as etiology, given prior history of GERD with gastric ulcer discussed case with general surgeon, Dr. Steen. 08/31/19 EGD w/ gastritis noted, pathology pending. Cleared to start clears, transitioned to po PPI. 08/31/19 lipase 772-->08/30/19 lipase 635. Attempt to transition diet the day prior however patient noted ongoing epigastric discomfort recurrence with nausea and emesis therefore mcintosh sition back to clears and patient is reticent to advance, currently on clears only with ongoing discomfort, discussed that his labs are clinically improving with lipase trending down and EGD with only noted gastritis maintained on high- dose PPI with expected continued improvement. Do suspect potentially some underlying malingering versus uncontrolled anxiety and depression/PTSD associated which Dr. Steen agrees. We will continue to attempt to advance diet to at least full's, if pain improved and tolerating full liquid diet in a.m. would plan discharge. Patient with self-reported nausea and emesis with return to clear liquid diet the evening prior and ongoing epigastric discomfort as well as new onset inferior to left nare cold sore with generalized fatigue and malaise. Discussed that lab values including lipase have been trending down and would expect improvement especially given endoscopy only with gastritis and he is maintained currently on high-dose Protonix twice daily. Noted that would expect patient likely discharge if not today given his complaint with nausea and epigastric discomfort ongoing, possibly in a.m. Patient denies fevers, chills, chest pain or dyspnea. Objective: Physical Examination: General: awake, alert, oriented x 3 and cooperative, seated upright at the bedside, fatigued appearance, notes ongoing severe epigastric discomfort at this time as well as fatigue and malaise with new inferior left nare cold sore. Skin: normal color, turgor, no icterus, cyanosis, evident new inferior left nare cold sore. HEENT: AT/NC, EOMI, PERRLA, mildly dry MM. Lungs: CTA bilaterally, moderate effort, moderate decrease BL bases, no rales, ronchi or wheezing. Heart: Regular rate and rhythm; no gallop, rub audible. Abdomen: soft, still notable tenderness to epigastric region palpation, no rebound or guarding but uncomfortable appearing, worsened since last examination, do suspect some potential malingering with underlying PTSD and anxiety, no obvious distention, currently normal bowel sounds. Extremities: no cyanosis, clubbing, or edema. Neurological: patient awake, alert, oriented x 3; cognitive function intact; pupils equally reactive to light and accomodation; cranial nerves II-XII grossly normal, moving all 4 extremities, no focal deficits, strength moderately global decrease secondary to ongoing acute complaints. Psychiatric: affect appears uncomfortable, no acute evidence of depressive or anxiety feelings. Vitals/I&O's: Vital Signs Temp Pulse Resp BP Pulse Ox 98.1 F 83 17 145/92 H 97 09/01/19 09:04 09/01/19 09:04 09/01/19 09:04 09/01/19 09:04 09/01/19 09:04 Oxygen Delivery Method Room Air Weight: 215 lb 6.266 oz Body Mass Index (BMI) 30.9 Finger Stick Blood Glucose 152 Intake and Output for Last 24 Hours 08/30/19 08/31/19 09/01/19 23:59 23:59 23:59 Intake Total 2405.00 / 2405.00 4482.5 / 4482.5 1035 / 1035 Output Total 200 / 200 Balance 2205.00 / 2205.00 4482.5 / 4482.5 1035 / 1035 Laboratory Results 08/31/19 11:16: POC Glucose 213 H 08/31/19 16:18: POC Glucose 164 H 08/31/19 21:16: POC Glucose 188 H 09/01/19 06:38: POC Glucose 169 H 09/01/19 06:50: WBC 8.3, RBC 4.29 L, Hgb 13.2, Hct 39.3 L, MCV 91.6, MCH 30.8, MCHC 33.6, RDW Std Deviation 44.5 H, RDW Coeff of Armin 13.2, Plt Count 165, MPV 9.8, Immature Gran % (Auto) 0.400, Neut % (Auto) 62.4, Lymph % (Auto) 29.8, [place] % (Auto) 6.0, Eos % (Auto) 1.2, Baso % (Auto) 0.2, Absolute Neuts (auto) 5.2, Absolute Lymphs (auto) 2.47, Nucleated RBC % 0 09/01/19 06:50: Sodium 140, Potassium 4.0, Chloride 111 H, Carbon Dioxide 24.0, Anion Gap 5, BUN 7, Creatinine 1.06, Estim Creat Clear Calc 82.26, Est GFR (MDRD) Af Amer 94, Est GFR (MDRD) Non-Af 77, BUN/Creatinine Ratio 6.6 L, Glucose 178 H, Calcium 8.0 L, Total Bilirubin 0.90, AST 16, ALT 28, Alkaline Phosphatase 59, Total Protein 7.2, Albumin 3.5, Globulin 3.7, Albumin/Globulin Ratio 0.9, Lipase 635 H Current Medications Acetaminophen (Tylenol) 650 mg PO Q6H PRN PRN PRN Reason: Non-cardiac pain (mod-severe) Acyclovir (Zovirax) 400 mg PO TID [facility] Stop: 09/08/19 09:26 Al Hydroxide/Mg Hydroxide (Mylanta Ii) 15 - 30 ml PO Q4H PRN PRN PRN Reason: INDIGESTION Albuterol Sulfate (Ventolin Aerosols) 2.5 mg INHALATION Q2H PRN PRN PRN Reason: dyspnea, wheezing Amitriptyline HCl (Elavil) 25 mg PO DAILY@2200 [facility] Last Admin: 08/31/19 21:22 Dose: 25 mg Documented by: Amlodipine Besylate (Norvasc) 5 mg PO DAILY [facility] Last Admin: 09/01/19 09:12 Dose: 5 mg Documented by: Aspirin (Aspirin, Baby) 81 mg PO DAILY@0800 [facility] Last Admin: 09/01/19 09:11 Dose: 81 mg Documented by: Dextrose (D50w Syringe) 0 gm IV X1 PRN; Protocol PRN Reason: Hypoglycemia Emollient Ointment (Eucerin Intensive Repair) 1 applic TOPICAL 4X/DAY PRN PRN; Protocol PRN Reason: DRY SKIN Last Admin: 08/31/19 14:34 Dose: 1 applic Documented by: Fluticasone Propionate (Flonase Nasal [place]) 2 spray NASAL DAILY [facility] Last Admin: 09/01/19 09:11 Dose: 2 spray Documented by: Gabapentin (Neurontin) 300 mg PO TIDCM [facility] Last Admin: 09/01/19 09:11 Dose: 300 mg Documented by: Glucagon () 1 mg IM .X1 PRN PRN Reason: Hypoglycemia Guaifenesin (Robitussin) 20 ml PO Q4H PRN PRN PRN Reason: COUGH Hydralazine HCl (Apresoline Iv) 10 mg IV Q4H PRN PRN PRN Reason: SBP > 160 Sodium Chloride () 1,000 mls @ 150 mls/hr IV .Q6H40M [facility] Last Admin: 09/01/19 03:37 Dose: 150 mls/hr Documented by: Insulin Glargine (Lantus (Bkc)) 6 units SC QHS [facility] Last Admin: 08/31/19 21:19 Dose: 6 u Documented by: Insulin Human Lispro (Humalog Kwikpen (Bk)) 0 unit SC [facility]; Protocol Last Admin: 09/01/19 06:41 Dose: 1 units Documented by: Ketorolac Tromethamine (Toradol) 15 mg IV Q6H PRN PRN PRN Reason: Pain Score 1-10/10 Stop: 09/05/19 04:32 Last Admin: 09/01/19 10:01 Dose: 15 mg Documented by: Latanoprost (Xalatan Opthalmic) 1 drop EACH EYE QHS [facility] Last Admin: 08/31/19 21:22 Dose: 1 drop Documented by: Levetiracetam (Keppra Tablet) 250 mg PO BID [facility] Last Admin: 12/08/19 09:12 Dose: 250 mg Documented by: Loratadine (Claritin) 10 mg PO DAILY [facility] Last Admin: 09/01/19 09:11 Dose: 10 mg Documented by: Losartan Potassium (Cozaar) 50 mg PO DAILY [facility] Last Admin: 09/01/19 09:11 Dose: 50 mg Documented by: Magnesium Hydroxide (Milk Of Magnesia) 30 ml PO DAILY PRN PRN Reason: Constipation Magnesium Oxide (Mag-Ox 400) 400 mg PO BIDCM [facility] Last Admin: 09/01/19 09:11 Dose: 400 mg Documented by: Ondansetron HCl (Zofran) 4 mg IV Q8H PRN PRN PRN Reason: NAUSEA/VOMITING Last Admin: 08/30/19 11:44 Dose: 4 mg Documented by: Pantoprazole Sodium (Protonix) 40 mg PO BID [facility] Last Admin: 09/01/19 09:12 Dose: 40 mg Documented by: Polyethylene Glycol (Miralax) 17 gm PO DAILY [facility] Last Admin: 09/01/19 09:12 Dose: 17 gm Documented by: Pravastatin Sodium (Pravachol) 40 mg PO DAILY@2200 [facility] Last Admin: 08/31/19 21:22 Dose: 40 mg Documented by: Promethazine HCl (Phenergan) 12.5 mg IV Q4H PRN PRN PRN Reason: NAUSEA/VOMITING Sodium Chloride () 10 - 40 ml IV UD PRN PRN Reason: SALINE FLUSH Last Admin: 09/01/19 10:02 Dose: 10 ml Documented by: Temazepam (Restoril) 15 mg PO QHS PRN PRN PRN Reason: INSOMNIA Throat Lozenges (Cepacol Sore Throat Lozenge) 1 lozenge MUCOUS MEM Q2H PRN PRN PRN Reason: Sore Throat/Cough STROKE Vital Signs/Narrative: Vital Signs Temp Pulse Resp BP Pulse Ox 09/01/19 09:04 98.1 F 83 17 145/92 H 97 09/01/19 07:34 95 09/01/19 06:46 81 Medical Necessity - Tobacco Use Smoking Status: Former smoker Tobacco Use: Non-smoker Assessment/Plan All Active Problems (Last Reviewed 07/02/19 @ 10:58 by DAFNE Walters) Acute pancreatitis (Acute) Chest pain (Acute) Bleeding hemorrhoids (Acute) Hematochezia (Acute) Lower GI bleeding (Acute) Displacement of cervical intervertebral disc without myelopathy (Resolved) Syncope (Resolved) Tobacco dependence syndrome (Resolved) The patient is a 54 y/o F w/ PMHx: Nonobstructive CAD, Anxiety and Depression/PTSD, GERD w/ hx Gastric ulcer, Hx ? Seizures, Prior Pancreatitis s/p cholecystectomy, Diabetes mellitus type II, HTN, HLD who presents to the [facility] on 08/30/19 who presents with onset abdominal pain, awoke him at 5 am, epigastric with radiation toward his back, 10/10 in severity, continuous, sharp with nausea without emesis. 1. Acute pancreatitis w/ abdominal pain, N: Admission CBC w/ WBC 12.1 without shift, CMP w/ with sodium 134, carbon dioxide 20, glucose 201 otherwise unrem arkable, Lipase 1036. Admitted to the PCU given concurrent EKG changes, maintain on IVFs, NPO initially, IV PPI initially, IV/po pain control, trend lipase, CMP. Patient is status post cholecystectomy prior, lipid panel not severe appearing, denies alcohol as etiology, given prior history of GERD with gastric ulcer discussed case with general surgeon, Dr. Steen. 08/31/19 EGD w/ gastritis noted, pathology pending. Cleared to start clears, transitioned to po PPI. 08/31/19 lipase 772-->08/30/19 lipase 635. Attempt to transition diet the day prior however patient noted ongoing epigastric discomfort recurrence with nausea and emesis therefore transition back to clears and patient is reticent to advance, currently on clears only with ongoing discomfort, discussed that his labs are clinically improving with lipase trending down and EGD with only noted gastritis maintained on high-dose PPI with expected continued improvement. Do suspect potentially some underlying malingering versus uncontrolled anxiety and depression/PTSD associated which Dr. Steen agrees. We will continue to attempt to advance diet to at least full's, if pain improved and tolerating full liquid diet in a.m. would plan discharge. 2. Chest pain, suspected secondary to #1 with EKG changes: EKG in ED nonspecific ST changes new from prior, initial troponin less than 0.015. Maintained on a monitored bed to assure no acute myocardial infarction with serial cardiac enzymes and EKGs which remained unremarkable. ASA, NG, fentanyl given allergies and noted hypotension with Dilaudid. Mag 1.8. Likely secondary to #1. 3. Nonobstructive CAD: Notes history of CAD but notes that cardiac catheterization was possibly unremarkable remotely, will maintain on aspirin, losartan, not on beta-slick therapy, continue statin. Mag 1.8. 4. Hypertension: Continue home regimen including amlodipine, losartan, holding hydrochlorothiazide given acute presentation as noted above #1, PRN hydralazine. 5. Hyperlipidemia: Continue home statin regimen. AM FLP w/ triglycerides 274, total cholesterol 182, LDL 85, VLDL 55, HDL 42.. 6. Diabetes mellitus type II: Hold oral home regimen, continue home insulin regimen, allowance of clears w/ transition to ACHS accu checks w/ ISS, HgbA1c obtained 7.0%. 7. Seizure disorder: We will continue patient home Keppra regimen. 8. GERD with history gastric ulcer: Transitioned IV PPI to oral regimen, clears initiated and attempting to transition to full liquids as noted. 9. Anxiety and Depression/PTSD: From current regimen listed not on appropriate regimen, encourage continued follow-up with primary care physician and initiation of appropriate regimen if felt necessary outpatient. Given concerns that his underlying psychiatric issues are potentially associated with ongoing discomfort do feel that referral upon discharge is appropriate. 10. New onset left inferior nare cold sore: Encouraged patient to avoid frequent touching and manipulation, hand hygiene discussed, will initiate acyclovir regimen with recommendation to take with food especially given #1 current presentation. 11. DVT prophylaxis: SCDs, defer chemoprophylaxis given #1, continue aspirin therapy given #2. Code Visit Inpatient E&M: 04494 Subs Hosp L2
--- NOTE | 2019-09-01 10:31 | PN.SURG_ITS ---
Patient Problems: Active and Suspected Problems (Last Reviewed 07/02/19 @ 10:58 by DAFNE Walters) Acute pancreatitis (Acute) Chest pain (Acute) Subjective: tolerating diet but still epigastric to supraumbilical pain - Physical Exam Vitals/I&O's: Vital Signs Temp Pulse Resp BP Pulse Ox 98.1 F 83 17 145/92 H 97 09/01/19 09:04 09/01/19 09:04 09/01/19 09:04 09/01/19 09:04 09/01/19 09:04 Oxygen Delivery Method Room Air Weight: 97.7 kg Body Mass Index (BMI) 30.9 Finger Stick Blood Glucose 152 Intake and Output for Last 24 Hours 08/30/19 08/31/19 09/01/19 23:59 23:59 23:59 Intake Total 2405.00 / 2405.00 4482.5 / 4482.5 1035 / 1035 Output Total 200 / 200 Balance 2205.00 / 2205.00 4482.5 / 4482.5 1035 / 1035 General: Alert, Oriented x3, Cooperative Abdomen: Soft Laboratory Results 08/31/19 11:16: POC Glucose 213 H 08/31/19 16:18: POC Glucose 164 H 08/31/19 21:16: POC Glucose 188 H 09/01/19 06:38: POC Glucose 169 H 09/01/19 06:50: WBC 8.3, RBC 4.29 L, Hgb 13.2, Hct 39.3 L, MCV 91.6, MCH 30.8, MCHC 33.6, RDW Std Deviation 44.5 H, RDW Coeff of Armin 13.2, Plt Count 165, MPV 9.8, Immature Gran % (Auto) 0.400, Neut % (Auto) 62.4, Lymph % (Auto) 29.8, [place] % (Auto) 6.0, Eos % (Auto) 1.2, Baso % (Auto) 0.2, Absolute Neuts (auto) 5.2, Absolute Lymphs (auto) 2.47, Nucleated RBC % 0 09/01/19 06:50: Sodium 140, Potassium 4.0, Chloride 111 H, Carbon Dioxide 24.0, Anion Gap 5, BUN 7, Creatinine 1.06, Estim Creat Clear Calc 82.26, Est GFR (MDRD) Af Amer 94, Est GFR (MDRD) Non-Af 77, BUN/Creatinine Ratio 6.6 L, Glucose 178 H, Calcium 8.0 L, Total Bilirubin 0.90, AST 16, ALT 28, Alkaline Phosphatase 59, Total Protein 7.2, Albumin 3.5, Globulin 3.7, Albumin/Globulin Ratio 0.9, Lipase 635 H Current Medications Acetaminophen (Tylenol) 650 mg PO Q6H PRN PRN PRN Reason: Non-cardiac pain (mod-severe) Acyclovir (Zovirax) 400 mg PO TID [facility] Stop: 09/08/19 09:26 Al Hydroxide/Mg Hydroxide (Mylanta Ii) 15 - 30 ml PO Q4H PRN PRN PRN Reason: INDIGESTION Albuterol Sulfate (Ventolin Aerosols) 2.5 mg INHALATION Q2H PRN PRN PRN Reason: dyspnea, wheezing Amitriptyline HCl (Elavil) 25 mg PO DAILY@2200 [facility] Last Admin: 08/31/19 21:22 Dose: 25 mg Documented by: Amlodipine Besylate (Norvasc) 5 mg PO DAILY [facility] Last Admin: 09/01/19 09:12 Dose: 5 mg Documented by: Aspirin (Aspirin, Baby) 81 mg PO DAILY@0800 [facility] Last Admin: 09/01/19 09:11 Dose: 81 mg Documented by: Dextrose (D50w Syringe) 0 gm IV X1 PRN; Protocol PRN Reason: Hypoglycemia Emollient Ointment (Eucerin Intensive Repair) 1 applic TOPICAL 4X/DAY PRN PRN; Protocol PRN Reason: DRY SKIN Last Admin: 08/31/19 14:34 Dose: 1 applic Documented by: Fluticasone Propionate (Flonase Nasal [place]) 2 spray NASAL DAILY [facility] Last Admin: 09/01/19 09:11 Dose: 2 spray Documented by: Gabapentin (Neurontin) 300 mg PO TIDCM [facility] Last Admin: 09/01/19 09:11 Dose: 300 mg Documented by: Glucagon () 1 mg IM .X1 PRN PRN Reason: Hypoglycemia Guaifenesin (Robitussin) 20 ml PO Q4H PRN PRN PRN Reason: COUGH Hydralazine HCl (Apresoline Iv) 10 mg IV Q4H PRN PRN PRN Reason: SBP > 160 Sodium Chloride () 1,000 mls @ 150 mls/hr IV .Q6H40M [facility] Last Admin: 09/01/19 03:37 Dose: 150 mls/hr Documented by: Insulin Glargine (Lantus (Bk)) 6 units SC QHS [facility] Last Admin: 08/31/19 21:19 Dose: 6 u Documented by: Insulin Human Lispro (Humalog Kwikpen ([facility])) 0 unit SC ACHS [facility]; Protocol Last Admin: 09/01/19 06:41 Dose: 1 units Documented by: Ketorolac Tromethamine (Toradol) 15 mg IV Q6H PRN PRN PRN Reason: Pain Score 1-1010 Stop: 09/05/19 04:32 Last Admin: 09/01/19 10:01 Dose: 15 mg Documented by: Latanoprost (Xalatan Opthalmic) 1 drop EACH EYE QHS [facility] Last Admin: 08/31/19 21:22 Dose: 1 drop Documented by: Levetiracetam (Keppra Tablet) 250 mg PO BID [facility] Last Admin: 09/01/19 09:12 Dose: 250 mg Documented by: Loratadine (Claritin) 10 mg PO DAILY [facility] Last Admin: 09/01/19 09:11 Dose: 10 mg Documented by: Losartan Potassium (Cozaar) 50 mg PO DAILY [facility] Last Admin: 09/01/19 09:11 Dose: 50 mg Documented by: Magnesium Hydroxide (Milk Of Magnesia) 30 ml PO DAILY PRN PRN Reason: Constipation Magnesium Ox[facility] ([facility]-Ox 400) [facility] Last Admin: 09/01/19 09:11 Dose: 400 mg Documented by: Ondansetron HCl (Zofran) 4 mg IV Q8H PRN PRN PRN Reason: NAUSEA/VOMITING Last Admin: 08/30/19 11:44 Dose: 4 mg Documented by: Pantoprazole Sodium (Protonix) 40 mg PO BID [facility] Last Admin: 09/01/19 09:12 Dose: 40 mg Documented by: Polyethylene Glycol (Miralax) 17 gm PO DAILY [facility] Last Admin: 09/01/19 09:12 Dose: 17 gm Documented by: Pravastatin Sodium (Pravachol) 40 mg PO DAILY@2200 [facility] Last Admin: 08/31/19 21:22 Dose: 40 mg Documented by: Promethazine HCl (Phenergan) 12.5 mg IV Q4H PRN PRN PRN Reason: NAUSEA/VOMITING Sodium Chloride () 10 - 40 ml IV UD PRN PRN Reason: SALINE FLUSH Last Admin: 09/01/19 10:02 Dose: 10 ml Documented by: Temazepam (Restoril) 15 mg PO QHS PRN PRN PRN Reason: INSOMNIA Throat Lozenges (Cepacol Sore Throat Lozenge) 1 lozenge MUCOUS MEM Q2H PRN PRN PRN Reason: Sore Throat/Cough Medical Necessity - Tobacco Use Smoking Status: Former smoker Tobacco Use: Non-smoker Assessment/Plan All Active Problems (Last Reviewed 07/02/19 @ 10:58 by DAFNE Walters) Acute pancreatitis (Acute) Chest pain (Acute) Bleeding hemorrhoids (Acute) Hematochezia (Acute) Lower GI bleeding (Acute) Displacement of cervical intervertebral disc without myelopathy (Resolved) Syncope (Resolved) Tobacco dependence syndrome (Resolved) The above consultation was reviewed and the patient examined. The patient is known to me. He had a prior cholecystectomy and a history of PUD. He is on ASA. He quit smoking after his SD, he drinks occasionally, denies other substances. HE has a history of PTSD and stress. Agree that duodenal ulcer with pancreatic inflammation is possible etiology. Upper endoscopy demonstrated a normal appearing duodenum. There was mild to moderate gastritis, but more proximal, a small hiatal hernia and distal esophagitis suspicious for Vasquez's esophagitis. OK to start clears. continue PPI's await path.
[2019-09-01] MEDS: Acyclovir 200 MG Capsule 400 MG PO ×3 (10:41→22:49)
[2019-09-01 11:36] LABS: Bedside Glucose 256 mg/dL (70-110)
[2019-09-01] MEDS: Acetaminophen 325 MG Tablet 650 MG PO (15:03)
[2019-09-01 16:41] LABS: Bedside Glucose 145 mg/dL (70-110)
[2019-09-01] MEDS: Amitriptyline 25 MG Tablet PO (22:47)
[2019-09-01] MEDS: Pravastatin 40 MG Tablet PO (22:49)
[2019-09-01] MEDS: Latanoprost 0.005% 1 Bottle 1 DRP EACH EYE (22:49)
[2019-09-01] MEDS: Temazepam 15 MG Capsule PO (22:57)
[2019-09-01 23:15] LABS: Bedside Glucose 177 mg/dL (70-110)
[2019-09-02] VITALS (9 sets, daily range): BP systolic 128–151; BP diastolic 89–98; PULSE 65–85; RESP 16–18; TEMP 36.6–36.9; O2SAT 95–99
[2019-09-02] MEDS: 0.9% Normal Saline 1,000 ML 150 ML IV (05:41)
[2019-09-02] MEDS: Acyclovir 200 MG Capsule 400 MG PO ×3 (05:44→21:16)
[2019-09-02] MEDS: Ketorolac 15 MG/ML Vial IV ×4 (05:48→23:58)
[2019-09-02] MEDS: Insulin Lispro 100 UNIT/ML INSULN.PEN SC ×3 (06:48→21:21)
[2019-09-02 06:56] LABS: Bedside Glucose 180 mg/dL (70-110)
[2019-09-02 07:38] LABS: Absolute Neutrophil Count 4.4 X10^3/uL (2.0-7.7); Basophil# 0.03 X10^3/uL; Basophil% 0.4 % (0-1); Eosinophil# 0.14 X10^3/uL; Eosinophils% 1.8 % (0-5); Hematocrit 35.9 % (40-54); Hemoglobin 11.9 g/dL (13.0-16.5); Lymphocyte % 33.9 % (19-41); Mean Corp Hgb Conc 33.1 g/dL (32-36); Mean Corpuscular Hgb 30.4 pg (27.0-32.0); Mean Corpuscular Volume 91.8 fL (80-94); Mean Platelet Vol. 10.1 fl (6.2-12.0); Monocyte# 0.48 X10^3/uL; Monocyte% 6.3 % (0-10); NRBC Flagged by Analyzer 0 % (0-5); Neutrophil % 57.2 % (47-70); Platelet Count 145 K/mm3 (150-450); RBC Distribution Width CV 12.9 % (11.6-14.6); RBC Distribution Width SD 42.9 fl (35.1-43.9); Red Blood Count 3.91 M/mm3 (4.6-6.2); White Blood Count 7.7 K/mm3 (4.4-11.0)
[2019-09-02] MEDS: Gabapentin 300 MG Capsule PO ×3 (07:49→17:08)
[2019-09-02] MEDS: Magnesium Oxide 400 MG Tablet PO ×2 (07:49→17:08)
[2019-09-02] MEDS: Aspirin 81 MG TAB.CHEW PO (07:49)
[2019-09-02 08:14] LABS: ALB/GLOB Ratio 1.1 RATIO (0.9-2.4); AST(SGOT) 17 U/L (15-37); Alanine Aminotransfer ALT/SGPT 25 U/L (16-61); Albumin, Serum 3.5 g/dL (3.2-5.0); Alkaline Phosphatase 51 U/L (45-117); Anion Gap 5 (5-15); BUN 6 mg/dL (7-18); BUN/Creat Ratio 5.7 RATIO (10-20); Calcium,Total 8.1 mg/dL (8.5-10.1); Chloride 112 mmol/L (98-107); Creatinine, Serum 1.06 mg/dL (0.70-1.30); EST Glomerular Filtration Rate 77 mL/min (>60); Est Glom Filt Rate - Afr Amer 94 mL/min (>60); Estimated Creatinine Clearance 82.26 ml/min; Globulin 3.2 g/dL (2.2-4.2); Glucose 171 mg/dL (74-106); Lipase 643 U/L (73-393); Potassium 3.8 mmol/L (3.5-5.1); Protein, Total 6.7 g/dL (6.4-8.2); Sodium Level 140 mmol/L (136-145)
--- NOTE | 2019-09-02 09:56 | CASEMGMT ---
RN CM Assessment Introduced role of RN CM to patient.? Patient is alert, oriented and able?to participate in RN CM Assessment. ?Care providers, pharmacy, and demographics verified. Presentation: Abd Pain, Nausea Admit Dx: Pancreatitis, CP w/EKG changes Re-Admit: No Barriers/Issues: States had a couple beers and fried chicken with watching the football games, states plans to give up the alcohol. Plans to get back to his normal routine of walking and his stationary bike. PCP: Sees FIELD PROFESSIONAL Natasha Zamudio at [facility] for many years and denies PCP list as he wishes to stay with her. Specialists: Cardio- Dr Corrales. Used to see Neuro at [facility] but Neuro moved to [place] his FIELD PROFESSIONAL Natasha Zamudio plans to refer him to one in [place]. Preferred Pharmacy: [facility] Insurance: [employer] [facility] Rx Benefit:?Yes ?LNOK: Youngest sister Lashay-states not sure of her last name and does not have her contact number on him right now. Person to notify Eunice Houser is his land lord LW/HPOA: None, does not wish to complete on this admission. Given advanced direction information with rack card, aware can return as an outpatient to complete with dept. Living Arrangements:? Lives alone in a 2SH, [address] on [address] 6 steps to enter home. ADL?s: Independent with ambulation and ADLs Transportation: Patient does not drive d/t h/o seizures. States walks, uses [facility] for Medical appointments, takes cab for grocery shopping and other needs. DME: Medical alert device, Glucometer, BP machine. HHC: None SNF: None Goal: Home and does not think will have any needs. Denies any issues, concerns, or questions with DC planning at this time. Aware CM remains available for any emerging needs. DC PLAN: Home with no anticipated needs identified at this time. YAN Reese
[2019-09-02] MEDS: Loratadine 10 MG Tablet PO (10:11)
[2019-09-02] MEDS: Polyethylene Glycol 3350 17 GM PACKET PO (10:12)
[2019-09-02] MEDS: Fluticasone 0.05% 1 SPRAY NASAL.SRY 2 SPRAY NASAL (10:12)
[2019-09-02] MEDS: levETIRAcetam 250 MG Tablet PO ×2 (10:12→21:16)
[2019-09-02] MEDS: Pantoprazole Sodium 40 MG Tablet PO ×2 (10:13→21:25)
[2019-09-02] MEDS: amLODIPine 5 MG Tablet PO (10:13)
[2019-09-02] MEDS: Losartan Potassium 50 MG Tablet PO (10:13)
[2019-09-02] MEDS: Acetaminophen 325 MG Tablet 650 MG PO ×2 (10:17→16:06)
--- NOTE | 2019-09-02 11:03 | PN_ITS ---
Patient Problems: Active and Suspected Problems (Last Reviewed 07/02/19 @ 10:58 by DAFNE Walters) Acute pancreatitis (Acute) Subjective: Chief complaint: Follow-up after admission for acute on chronic pancreatitis, gastritis and Vasquez's esophagus. Patient seen and examined. No acute events overnight. He is still complaining of epigastric pain, dull aching pain, not radiating with mild nausea, no vomiting. He has been on for liquid diet but apparently, he is not tolerating it. He denies any chest pain or shortness of breath. His vital signs are stable. - Physical Exam Vitals/I&O's: Vital Signs Temp Pulse Resp BP Pulse Ox 98.2 F 85 16 151/97 H 98 09/02/19 09:00 09/02/19 09:00 09/02/19 09:00 09/02/19 09:00 09/02/19 09:00 Oxygen Delivery Method Room Air Weight: 215 lb 6.266 oz Body Mass Index (BMI) 30.9 Finger Stick Blood Glucose 152 Intake and Output for Last 24 Hours 08/31/19 09/01/19 09/02/19 23:59 23:59 23:59 Intake Total 4482.5 / 4482.5 4597.5 / 4597.5 1360 / 1360 Balance 4482.5 / 4482.5 4597.5 / 4597.5 1360 / 1360 General: Alert, Oriented x3, Cooperative, No apparent distress HEENT: Atraumatic, PERRLA, EOMI, Normocephalic Oral: Moist Mucosa, No Gingival or Mucosal Lesions/ Ulcerations Neck: Supple, No JVD, Negative Carotid Bruits, Trachea Midline, Thyroid Normal Size and Texture Lungs: Clear to auscultation, Normal air movement, No rhonchi, No wheeze, No rales, Diminished Cardiovascular: Regular rate, Regular Rhythm, Normal S1, Normal S2, PMI Normal Abdomen: Bowel Sounds Present, Soft, Non-Distended, No Hepato-splenomegaly, Tender - Minimal epigastric tenderness. Extremities: No clubbing, No cyanosis Skin: No rashes, No breakdown Lymphatic: No Cervical, Supraclavicular, or Inguinal Adenopathy Neurological: Cranial nerves II-XII grossly intact, Motor Exam 5/5 strength throughout Psych/Mental Status: Normal Affect, Appropriate, Alert and oriented to time, place, person, mood and affect Laboratory Results 09/01/19 11:25: POC Glucose 256 H 09/01/19 16:31: POC Glucose 145 H 09/01/19 22:40: POC Glucose 177 H 09/02/19 06:47: POC Glucose 180 H 09/02/19 06:52: WBC 7.7, RBC 3.91 L, Hgb 11.9 L, Hct 35.9 L, MCV 91.8, MCH 30.4, MCHC 33.1, RDW Std Deviation 42.9, RDW Coeff of Armin 12.9, Plt Count 145 L, MPV 10.1, Immature Gran % (Auto) 0.400, Neut % (Auto) 57.2, Lymph % (Auto) 33.9, Merrick % (Auto) 6.3, Eos % (Auto) 1.8, Baso % (Auto) 0.4, Absolute Neuts (auto) 4. 4, Absolute Lymphs (auto) 2.60, Nucleated RBC % 0 09/02/19 06:52: Sodium 140, Potassium 3.8, Chloride 112 H, Carbon Dioxide 23.0, Anion Gap 5, BUN 6 L, Creatinine 1.06, Estim Creat Clear Calc 82.26, Est GFR (MDRD) Af Amer 94, Est GFR (MDRD) Non-Af 77, BUN/Creatinine Ratio 5.7 L, Glucose 171 H, Calcium 8.1 L, Total Bilirubin 0.70, AST 17, ALT 25, Alkaline Phosphatase 51, Total Protein 6.7, Albumin 3.5, Globulin 3.2, Albumin/Globulin Ratio 1.1, Lipase 643 H Clinical Impression(s) from Imaging Studies Abdomen/Pelvis CT 08/30/19 13:51 IMPRESSION: Hepatomegaly with diffuse fatty infiltration of the liver. Findings suggestive of dependent bibasilar atelectasis. Electronically Signed: Brendan Ty, at 15:20 EST , Service support , Current Medications Acetaminophen (Tylenol) 650 mg PO Q6H PRN PRN PRN Reason: Non-cardiac pain (mod-severe) Last Admin: 09/02/19 10:17 Dose: 650 mg Documented by: Acyclovir (Zovirax) 400 mg PO TID [facility] Stop: 09/08/19 09:26 Last Admin: 09/02/19 05:44 Dose: 400 mg Documented by: Al Hydroxide/Mg Hydroxide (Mylanta Ii) 15 - 30 ml PO Q4H PRN PRN PRN Reason: INDIGESTION Albuterol Sulfate (Ventolin Aerosols) 2.5 mg INHALATION Q2H PRN PRN PRN Reason: dyspnea, wheezing Amitriptyline HCl (Elavil) 25 mg PO DAILY@2200 [facility] Last Admin: 09/01/19 22:47 Dose: 25 mg Documented by: Amlodipine Besylate (Norvasc) 5 mg PO DAILY [facility] Last Admin: 09/02/19 10:13 Dose: 5 mg Documented by: Aspirin (Aspirin, Baby) 81 mg PO DAILY@0800 [facility] Last Admin: 09/02/19 07:49 Dose: 81 mg Documented by: Dextrose (D50w Syringe) 0 gm IV X1 PRN; Protocol PRN Reason: Hypoglycemia Emollient Ointment (Eucerin Intensive Repair) 1 applic TOPICAL 4X/DAY PRN PRN; Protocol PRN Reason: DRY SKIN Last Admin: 08/31/19 14:34 Dose: 1 applic Documented by: Fluticasone Propionate (Flonase Nasal [place]) 2 spray NASAL DAILY [facility] Last Admin: 09/02/19 10:12 Dose: 2 spray Documented by: Gabapentin (Neurontin) 300 mg PO TIDCM [facility] Last Admin: 09/02/19 07:49 Dose: 300 mg Documented by: Glucagon () 1 mg IM .X1 PRN PRN Reason: Hypoglycemia Guaifenesin (Robitussin) 20 ml PO Q4H PRN PRN PRN Reason: COUGH Hydralazine HCl (Apresoline Iv) 10 mg IV Q4H PRN PRN PRN Reason: SBP > 160 Sodium Chloride () 1,000 mls @ 150 mls/hr IV .Q6H40M [facility] Last Admin: 09/02/19 05:41 Dose: 150 mls/hr Documented by: Insulin Glargine (Lantus (Bk)) 6 units SC QHS [facility] Last Admin: 09/01/19 22:52 Dose: 6 u Documented by: Insulin Human Lispro (Humalog Kwikpen (Bkc)) 0 unit SC ACHS [facility]; Protocol Last Admin: 09/02/19 06:48 Dose: 1 units Documented by: Ketorolac Tromethamine (Toradol) 15 mg IV Q6H PRN PRN PRN Reason: Pain Score 1-10/10 Stop: 09/05/19 04:32 Last Admin: 09/02/19 05:48 Dose: 15 mg Documented by: Latanoprost (Xalatan Opthalmic) 1 drop EACH EYE QHS [facility] Last Admin: 09/01/19 22:49 Dose: 1 drop Documented by: Levetiracetam (Keppra Tablet) 250 mg PO BID [facility] Last Admin: 09/02/19 10:12 Dose: 250 mg Documented by: Loratadine (Claritin) 10 mg PO DAILY [facility] Last Admin: 09/02/19 10:11 Dose: 10 mg Documented by: Losartan Potassium (Cozaar) 50 mg PO DAILY [facility] Last Admin: 09/02/19 10:13 Dose: 50 mg Documented by: Magnesium Hydroxide (Milk Of Magnesia) 30 ml PO DAILY PRN PRN Reason: Constipation Magnesium [facility] (Mag-Ox 400) [facility] Last Admin: 09/02/19 07:49 Dose: 400 mg Documented by: Ondansetron HCl (Zofran) 4 mg IV Q8H PRN PRN PRN Reason: NAUSEA/VOMITING Last Admin: 08/30/19 11:44 Dose: 4 mg Documented by: Pancrelipase (Creon Dr 6,000 Unit Capsule) 1 capsule PO TIOHM [facility] Pantoprazole Sodium (Protonix) 40 mg PO BID [facility] Last Admin: 09/02/19 10:13 Dose: 40 mg Documented by: Polyethylene Glycol (Miralax) 17 gm PO DAILY [facility] Last Admin: 09/02/19 10:12 Dose: 17 gm Documented by: Pravastatin Sodium (Pravachol) 40 mg PO DAILY@2200 [facility] Last Admin: 09/01/19 22:49 Dose: 40 mg Documented by: Promethazine HCl (Phenergan) 12.5 mg IV Q4H PRN PRN PRN Reason: NAUSEA/VOMITING Sodium Chloride () 10 - 40 ml IV UD PRN PRN Reason: SALINE FLUSH Last Admin: 09/01/19 16:27 Dose: 10 ml Documented by: Temazepam (Restoril) 15 mg PO QHS PRN PRN PRN Reason: INSOMNIA Last Admin: 09/01/19 22:57 Dose: 15 mg Documented by: Throat Lozenges (Cepacol Sore Throat Lozenge) 1 lozenge MUCOUS MEM Q2H PRN PRN PRN Reason: Sore Throat/Cough Medical Necessity - Tobacco Use Smoking Status: Former smoker Tobacco Use: Non-smoker Assessment/Plan All Active Problems (Last Reviewed 07/02/19 @ 10:58 by DAFNE Walters) Acute pancreatitis (Acute) This is a 54 years old male patient presented to the emergency room because of abdominal pain and he was found to have acute on chronic pancreatitis as well as gastritis, esophagitis and Vasquez's esophagus on upper EGD. #1 acute on chronic pancreatitis: Patient does have a history of pancreatitis in the past and he admitted drinking beers a day or 2 before admission. LFT has been normal. Lipase has been trending down but stayed the same compared to yesterday and patient still symptomatic and still having epigastric pain on full liquid diet. His vital signs are stable. Plan: Start Creon, DC diet, keep on n.p.o. and okay for p.o. meds, sips of water and ice chips, repeat lipase tomorrow morning. #2 gastritis/esophagitis/Vasquez's esophagus: In context of history of gastric ulcer. Status post upper EGD, findings reviewed. Hemoglobin and hematocrit are stable. Continue Protonix twice daily. #3 type 2 diabetes mellitus: Blood sugar stable, continue Lantus nightly and sliding scale. #4 nonobstructive CAD: Stable, no acute complaints. Continue aspirin, statins and losartan #5 hypertension: Blood pressure stable, continue Norvasc, losartan. #6 seizure disorder: Stable, continue Keppra. #7 anxiety/depression/PTSD: Not on any medication currently. #8 DVT prophylaxis: SCDs. This note was generated with [employer] dictation software. It may contain incorrect words, spelling, and punctuation that were not noted in checking the note before signing. Code Visit Inpatient E&M: 37578 Subs Hosp L2
[2019-09-02 12:15] LABS: Bedside Glucose 162 mg/dL (70-110)
[2019-09-02] MEDS: 0.9% Normal Saline 1,000 ML 100 ML IV ×2 (13:16→22:57)
[2019-09-02 16:10] LABS: Bedside Glucose 132 mg/dL (70-110)
[2019-09-02] MEDS: Pravastatin 40 MG Tablet PO (21:16)
[2019-09-02] MEDS: Mag Hydrox/Al Hydrox/Simeth 30 ML UDC PO (21:16)
[2019-09-02] MEDS: Latanoprost 0.005% 1 Bottle 1 DRP EACH EYE (21:16)
[2019-09-02] MEDS: Temazepam 15 MG Capsule PO (21:17)
[2019-09-02] MEDS: Amitriptyline 25 MG Tablet PO (21:17)
[2019-09-02 22:36] LABS: Bedside Glucose 153 mg/dL (70-110)
[2019-09-03 02:00] VITALS: BP 139/90; PULSE 76; RESP 18; TEMP 36.4; O2SAT 96
[2019-09-03 04:26] VITALS: PULSE 77
[2019-09-03] MEDS: Acyclovir 200 MG Capsule 400 MG PO (06:08)
[2019-09-03] MEDS: Ketorolac 15 MG/ML Vial IV (06:08)
[2019-09-03] MEDS: Insulin Lispro 100 UNIT/ML INSULN.PEN SC (06:32)
[2019-09-03 06:40] LABS: Bedside Glucose 155 mg/dL (70-110)
[2019-09-03 06:46] LABS: Lipase 462 U/L (73-393)
[2019-09-03 07:15] VITALS: PULSE 70
[2019-09-03] MEDS: Magnesium Oxide 400 MG Tablet PO (07:50)
[2019-09-03] MEDS: Aspirin 81 MG TAB.CHEW PO (07:50)
[2019-09-03] MEDS: Gabapentin 300 MG Capsule PO ×2 (07:50→11:34)
[2019-09-03] MEDS: Losartan Potassium 50 MG Tablet PO (07:51)
[2019-09-03] MEDS: Polyethylene Glycol 3350 17 GM PACKET PO (07:51)
[2019-09-03] MEDS: amLODIPine 5 MG Tablet PO (07:51)
[2019-09-03] MEDS: Pantoprazole Sodium 40 MG Tablet PO (07:51)
[2019-09-03] MEDS: Fluticasone 0.05% 1 SPRAY NASAL.SRY 2 SPRAY NASAL (07:52)
[2019-09-03] MEDS: levETIRAcetam 250 MG Tablet PO (07:52)
[2019-09-03] MEDS: Loratadine 10 MG Tablet PO (07:53)
[2019-09-03 08:00] VITALS: BP 144/94; PULSE 74; RESP 16; TEMP 36.7; O2SAT 98
--- NOTE | 2019-09-03 08:15 | DCINST_ITS ---
- Discharge Diagnoses Current Active Problems: Current Active and Chronic Problems (Last Reviewed 07/02/19 @ 10:58 by DAFNE Walters) Acute pancreatitis (Acute) Former tobacco use (Chronic) GERD (gastroesophageal reflux disease) (Chronic) Gastric ulcer (Chronic) You will use the following diet at home:: Other - Full liquid diet, advance as tolerated to cardiac/calorie controlled diet. Your food should be the consistency of: Regular Discharge Activity: Return to Normal Activity, May not drive while taking narcotic pain medications. Weight Bearing Status: Full weight bearing Call your doctor if you observe: Fever of 101 or Higher, Shortness of breath, Dizziness, Fainting spells, Chest pain, Increased palpitations (irregular heartbeat), Uncontrolled pain Instructions: Chronic Pancreatitis, Acute Pancreatitis, Pancreatic Enzymes Oral capsule, gastro-resistant pellets Allergies/Adverse Reactions: Allergies hydrocodone bitartrate [From Vicodin] Allergy (Verified 08/30/19 08:10) Angioedema lisinopril Allergy (Verified 08/30/19 08:10) Angioedema tramadol Allergy (Verified 08/30/19 08:10) Itching cyclobenzaprine Adverse Reaction (Severe, Verified 08/30/19 08:10) Skin crawling morphine Adverse Reaction (Verified 08/30/19 08:10) Itching Medications to take at Discharge Nitroglycerin (INPATIENT USE) [Nitrostat] 0.4 mg SUBLINGUAL Q5M PRN 07/15/13 metFORMIN HCl [Glucophage] 500 mg PO BID 11/28/13 Loratadine 10 mg PO DAILY 06/01/17 Evans-3S/Dha/Epa/Fish Oil [Fish Oil 1,200 mg Softgel] 1 ea PO DAILY 06/01/17 latanoprost 0.005 % eye drops 1 applic EACH EYE QHS 28 Days #3 12/05/17 amitriptyline 25 mg tablet 25 mg PO DAILY 07/03/18 Cholecalciferol (Vitamin D3) [Vitamin D3] 1 cap PO DAILY 11/09/18 Levetiracetam [Keppra] 250 mg PO BID 11/09/18 amlodipine 5 mg tablet 5 mg PO DAILY #30 tab 04/16/19 aspirin 81 mg chewable tablet 81 mg PO DAILY@0800 #30 tab 04/16/19 losartan 50 mg tablet 50 mg PO DAILY #30 tab 04/16/19 magnesium oxide 400 mg (241.3 mg magnesium) tablet 400 mg PO BID #60 tab 04/16/19 Fluticasone 0.05% [Flonase Nasal [place]] 2 spray NASAL DAILY 06/07/19 Insulin Glargine,Hum.rec.anlog [Basaglar Kwikpen U-100] 6 unit SUBCUT QHS 06/07/19 Hydrocortisone [Anusol Hc] 25 mg RECTAL BID PRN PRN #20 suppos. 06/08/19 Polyethylene Glycol 3350 [Miralax] 17 gm PO DAILY #30 packet 06/08/19 hydrochlorothiazide 25 mg tablet 25 mg PO DAILY #30 tab 07/02/19 pravastatin 20 mg tablet 20 mg PO DAILY #30 tab 07/02/19 pravastatin 40 mg tablet 40 mg PO DAILY #30 tab 07/02/19 Pantoprazole Sodium [Protonix] 40 mg PO BID #90 tab 09/03/19 lipase/protease/amylase [Creon DR 6,000 Unit Capsule] 1 cap PO TIDCM #90 cap 09/03/19 traMADol [Ultram] 50 mg PO Q8H PRN PRN 10 Days #30 tablet 09/03/19 The following prescriptions were given: lipase/protease/amylase [Creon DR 6,000 Unit Capsule] 1 cap PO TIDCM #90 cap Transmission Status: Pending to [facility] Pantoprazole Sodium [Protonix] 40 mg PO BID #90 tab Transmission Status: Pending to [facility] traMADol [Ultram] 50 mg PO Q8H PRN PRN 10 Days #30 tablet PRN Reason: Abdominal pain 6-10 out of 10 Transmission Status: Sent to [facility] Primary Care Physician: Mame Schneider [Primary Care Provider] - Please follow up with your Primary Care Physician in: 1 week. Test Results: Test results from this visit will be discussed in further detail at your follow- up appointment, if applicable.
--- NOTE | 2019-09-03 10:28 | PHA.DC.COU ---
Pharmacy Services has performed discharge medication counseling for this patient. The patient was counseled on the following discharge medications and changes in medications for homegoing review. 1. CREON 2. PROTONIX The Reason for Use, instructions for use, and potential side effects were reviewed for all new medications. The patient's questions regarding all of their medications were answered. The patient was able to verbally demonstrate an understanding of their discharge medications.
[2019-09-03 12:50] LABS: Bedside Glucose 130 mg/dL (70-110)
[2019-09-03 13:00] VITALS: BP 144/94; PULSE 74; RESP 18; TEMP 36.6; O2SAT 98
--- NOTE | 2019-09-03 13:13 | DS.PCM_ITS ---
Discharge Date and Diagnosis - Problem List Patient Problems: Active and Suspected Problems (Last Reviewed 07/02/19 @ 10:58 by DAFNE Walters) Acute pancreatitis (Acute) Date of Admission: 08/30/19 Date of Discharge: 09/03/19 - Primary Discharge Diagnosis Active and Suspected Problems (Last Reviewed 07/02/19 @ 10:58 by DAFNE Walters) #1 acute on chronic pancreatitis. #2 gastritis/esophagitis/Vasquez's esophagus. - Secondary Discharge Diagnosis Chronic Problems (Last Reviewed 07/02/19 @ 10:58 by DAFNE Walters) Former tobacco use (Chronic) GERD (gastroesophageal reflux disease) (Chronic) Gastric ulcer (Chronic) Constipation (Chronic) Coronary artery disease (Chronic) non-obstructive Hyperlipidemia (Chronic) Seizure disorder (Chronic) Diabetes mellitus type 2 in nonobese (Chronic) PTSD (post-traumatic stress disorder) (Chronic) Glaucoma (Chronic) Essential (primary) hypertension (Chronic) Hospital Course and Treatment Imaging Results: Clinical Impression(s) from Imaging Studies Abdomen/Pelvis CT 08/30/19 13:51 IMPRESSION: Hepatomegaly with diffuse fatty infiltration of the liver. Findings suggestive of dependent bibasilar atelectasis. Electronically Signed: Brendan Karson, at 15:20 EST , Service support , Dr. Akhtar, general surgery. Operations: None Procedures: EGD Summary of Care Provided: Patient seen and examined on day of discharge and appeared to be stable to be discharged home. He epigastric pain is improving but still there. He tolerated clear liquids. Lipase is trending down. I informed the patient that his pa ncreatitis is likely became chronic and he may expect to have chronic pain secondary to it. His vital signs are stable. The patient is a 54 year old M patient presented to the emergency room because of abdominal pain and he was found to have acute on chronic pancreatitis. Patient does have a history of pancreatitis in the past and he admitted drinking couple of beers a day or [address] scan abdomen and pelvis with IV contrast revealed hepatomegaly, normal pancreas, status post cholecystectomy. He was treated conservatively with IV fluids, IV antiemetics, IV PPI and IV Toradol PRN for pain. On admission, his routine blood work was remarkable for leukocytosis, LFT was normal and his lipase was 1036. Because of the continued abdominal pain, general surgery consulted and patient underwent upper EGD that revealed gastritis, severe esophagitis and Vasquez's esophagus. Patient was started on PPI. With treatment, leukocytosis resolved and his lipase came down to 462 upon discharge. His vital signs remained stable throughout admission and he remained afebrile. I explained to the patient that he may start to have chronic pain secondary to chronic pancreatitis. He was started on Creon for pancreatic enzymes replacement. Patient discharged home in a stable medical condition, discharged on tramadol PRN for pain, recommended to use Tylenol or Aleve pitn-zch-frzabim for mild pain, discharged on Protonix 40 mg p.o. twice daily, discharged on Creon 3 times daily, recommended follow-up with PCP in 1 week, counseled regarding drinking alcohol which may exaggerate or exacerbate his symptoms and patient seemed to be in agreement and understanding. Patient Problems: Active and Suspected Problems (Last Reviewed 07/02/19 @ 10:58 by DAFNE Walters) Acute pancreatitis (Acute) - Physical Exam Vitals/I&O's: Vital Signs Temp Pulse Resp BP Pulse Ox 98.0 F 74 16 144/94 H 98 09/03/19 08:00 09/03/19 08:00 09/03/19 08:00 09/03/19 08:00 09/03/19 08:00 Oxygen Delivery Method Room Air Weight: 215 lb 6.266 oz Body Mass Index (BMI) 30.9 Finger Stick Blood Glucose 152 Intake and Output for Last 24 Hours 09/01/19 09/02/19 09/03/19 23:59 23:59 23:59 Intake Total 4597.5 / 4597.5 3808.33 / 3808.33 950 / 950 Output Total 3 / 3 Balance 4597.5 / 4597.5 3805.33 / 3805.33 950 / 950 General: Alert, Oriented x3, Cooperative, No apparent distress HEENT: Atraumatic, PERRLA, EOMI, Normocephalic Oral: Moist Mucosa, No Gingival or Mucosal Lesions/ Ulcerations Neck: Supple, No JVD, Negative Carotid Bruits, Trachea Midline, Thyroid Normal Size and Texture Lungs: Clear to auscultation, Normal air movement, No rhonchi, No wheeze, No rales Cardiovascular: Regular rate, Regular Rhythm, Normal S1, Normal S2 Abdomen: Bowel Sounds Present, Soft, Non Tender, Non-Distended, No Hepato- splenomegaly, Obese Extremities: No clubbing, No cyanosis, No edema Skin: No rashes, No breakdown Lymphatic: No Cervical, Supraclavicular, or Inguinal Adenopathy Neurological: Cranial nerves II-XII grossly intact, Neuro grossly intact Psych/Mental Status: Normal Affect, Appropriate Laboratory Results 09/02/19 16:04: POC Glucose 132 H 09/02/19 21:02: POC Glucose 153 H 09/03/19 05:30: Lipase 462 H 09/03/19 06:29: POC Glucose 155 H 09/03/19 11:31: POC Glucose 130 H Current Medications Acetaminophen (Tylenol) 650 mg PO Q6H PRN PRN PRN Reason: Non-cardiac pain (mod-severe) Last Admin: 09/02/19 16:06 Dose: 650 mg Documented by: Acyclovir (Zovirax) 400 mg PO TID [facility] Stop: 09/08/19 09:26 Last Admin: 09/03/19 06:08 Dose: 400 mg Documented by: Al Hydroxide/Mg Hydroxide (Mylanta Ii) 15 - 30 ml PO Q4H PRN PRN PRN Reason: INDIGESTION Last Admin: 09/02/19 21:16 Dose: 30 ml Documented by: Albuterol Sulfate (Ventolin Aerosols) 2.5 mg INHALATION Q2H PRN PRN PRN Reason: dyspnea, wheezing Amitriptyline HCl (Elavil) 25 mg PO DAILY@2200 [facility] Last Admin: 09/02/19 21:17 Dose: 25 mg Documented by: Amlodipine Besylate (Norvasc) 5 mg PO DAILY [facility] Last Admin: 09/03/19 07:51 Dose: 5 mg Documented by: Aspirin (Aspirin, Baby) 81 mg PO DAILY@0800 [facility] Last Admin: 09/03/19 07:50 Dose: 81 mg Documented by: Dextrose (D50w Syringe) 0 gm IV X1 PRN; Protocol PRN Reason: Hypoglycemia Emollient Ointment (Eucerin Intensive Repair) 1 applic TOPICAL 4X/DAY PRN PRN; Protocol PRN Reason: DRY SKIN Last Admin: 08/31/19 14:34 Dose: 1 applic Documented by: Fluticasone Propionate (Flonase Nasal [place]) 2 spray NASAL DAILY [facility] Last Admin: 09/03/19 07:52 Dose: 2 spray Documented by: Gabapentin (Neurontin) 300 mg PO TIDCM [facility] Last Admin: 09/03/19 11:34 Dose: 300 mg Documented by: Glucagon () 1 mg IM .X1 PRN PRN Reason: Hypoglycemia Guaifenesin (Robitussin) 20 ml PO Q4H PRN PRN PRN Reason: COUGH Hydralazine HCl (Apresoline Iv) 10 mg IV Q4H PRN PRN PRN Reason: SBP > 160 Insulin Glargine (Lantus ([facility])) 6 units SC QHS [facility] Last Admin: 09/02/19 21:22 Dose: 3 u Documented by: Insulin Human Lispro (Humalog Kwikpen ([facility])) 0 unit SC [facility]; Protocol Last Admin: 09/03/19 11:34 Dose: Not Given Documented by: Ketorolac Tromethamine (Toradol) 15 mg IV Q6H PRN PRN PRN Reason: Pain Score 1-10/10 Stop: 09/05/19 04:32 Last Admin: 09/03/19 06:08 Dose: 15 mg Documented by: Latanoprost (Xalatan Opthalmic) 1 drop EACH EYE QHS [facility] Last Admin: 09/02/19 21:16 Dose: 1 drop Documented by: Levetiracetam (Keppra Tablet) 250 mg PO BID [facility] Last Admin: 09/03/19 07:52 Dose: 250 mg Documented by: Loratadine (Claritin) 10 mg PO DAILY [facility] Last Admin: 09/03/19 07:53 Dose: 10 mg Documented by: Losartan Potassium (Cozaar) 50 mg PO DAILY [facility] Last Admin: 09/03/19 07:51 Dose: 50 mg Documented by: Magnesium Hydroxide (Milk Of Magnesia) 30 ml PO DAILY PRN PRN Reason: Constipation [facility] ([facility]Ox 400) [facility] Last Admin: 09/03/19 07:50 Dose: 400 mg Documented by: Ondansetron HCl (Zofran) 4 mg IV Q8H PRN PRN PRN Reason: NAUSEA/VOMITING Last Admin: 08/30/19 11:44 Dose: 4 mg Documented by: Pancrelipase (Laurie Rebolledo 6,000 Unit Capsule) 1 capsule PO TIDCM [facility] Last Admin: 09/03/19 11:33 Dose: 1 capsule Documented by: Pantoprazole Sodium (Protonix) 40 mg PO BID [facility] Last Admin: 09/03/19 07:51 Dose: 40 mg Documented by: Polyethylene Glycol (Miralax) 17 gm PO DAILY [facility] Last Admin: 09/03/19 07:51 Dose: 17 gm Documented by: Pravastatin Sodium (Pravachol) 40 mg PO DAILY@2200 [facility] Last Admin: 09/02/19 21:16 Dose: 40 mg Documented by: Promethazine HCl (Phenergan) 12.5 mg IV Q4H PRN PRN PRN Reason: NAUSEA/VOMITING Sodium Chloride () 10 - 40 ml IV UD PRN PRN Reason: SALINE FLUSH Last Admin: 09/01/19 16:27 Dose: 10 ml Documented by: Temazepam (Restoril) 15 mg PO QHS PRN PRN PRN Reason: INSOMNIA Last Admin: 09/02/19 21:17 Dose: 15 mg Documented by: Throat Lozenges (Cepacol Sore Throat Lozenge) 1 lozenge MUCOUS MEM Q2H PRN PRN PRN Reason: Sore Throat/Cough Discharge Activity: Return to Normal Activity, May not drive while taking narcotic pain medications. Weight Bearing Status: Full weight bearing Call your doctor if you observe: Fever of 101 or Higher, Shortness of breath, Dizziness, Fainting spells, Chest pain, Increased palpitations (irregular heartbeat), Uncontrolled pain Home Medications: Medications to take at Discharge Nitroglycerin (INPATIENT USE) [Nitrostat] 0.4 mg SUBLINGUAL Q5M PRN 07/15/13 metFORMIN HCl [Glucophage] 500 mg PO BID 11/28/13 Loratadine 10 mg PO DAILY 06/01/17 [place]-3S/Dha/Epa/Fish Oil [Fish Oil 1,200 mg Softgel] 1 ea PO DAILY 06/01/17 latanoprost 0.005 % eye drops 1 applic EACH EYE QHS 28 Days #3 12/05/17 amitriptyline 25 mg tablet 25 mg PO DAILY 07/03/18 Cholecalciferol (Vitamin D3) [Vitamin D3] 1 cap PO DAILY 11/09/18 Levetiracetam [Keppra] 250 mg PO BID 11/09/18 amlodipine 5 mg tablet 5 mg PO DAILY #30 tab 04/16/19 aspirin 81 mg chewable tablet 81 mg PO DAILY@0800 #30 tab 04/16/19 losartan 50 mg tablet 50 mg PO DAILY #30 tab 04/16/19 magnesium oxide 400 mg (241.3 mg magnesium) tablet 400 mg PO BID #60 tab 04/16/19 Fluticasone 0.05% [Flonase Nasal [place]] 2 spray NASAL DAILY 06/07/19 Insulin Glargine,Hum.rec.anlog [Basaglar Kwikpen U-100] 6 unit SUBCUT QHS 06/07/19 Hydrocortisone [Anusol Hc] 25 mg RECTAL BID PRN PRN #20 suppos. 06/08/19 Polyethylene Glycol 3350 [Miralax] 17 gm PO DAILY #30 packet 06/08/19 hydrochlorothiazide 25 mg tablet 25 mg PO DAILY #30 tab 07/02/19 pravastatin 20 mg tablet 20 mg PO DAILY #30 tab 07/02/19 pravastatin 40 mg tablet 40 mg PO DAILY #30 tab 07/02/19 Pantoprazole Sodium [Protonix] 40 mg PO BID #90 tab 09/03/19 lipase/protease/amylase [Laurie REBOLLEDO 6,000 Unit Capsule] 1 cap PO TIDCM #90 cap 09/03/19 traMADol [Ultram] 50 mg PO Q8H PRN PRN 10 Days #30 tab 09/03/19 Following Prescrptions Were Given to Patient: lipase/protease/amylase [Laurie REBOLLEDO 6,000 Unit Capsule] 1 cap PO TIDCM #90 cap Transmission Status: Received by [facility] Pantoprazole Sodium [Protonix] 40 mg PO BID #90 tab Transmission Status: Received by [facility] traMADol [Ultram] 50 mg PO Q8H PRN PRN 10 Days #30 tab PRN Reason: Abdominal pain 6-10 out of 10 Transmission Status: Received by [facility] Primary Care Physician: Mame Schneider [Primary Care Provider] - Please follow up with your Primary Care Physician in: 1 week. Please Follow Up With: Natasha Zamudio NP-C Patient Instructions: Pancreatic Enzymes Oral capsule, gastro-resistant pellets, Acute Pancreatitis, Chronic Pancreatitis Disposition: Home Minutes spent on discharge:: 32 Patient Condition:: Stable Medical Necessity - Tobacco Use Smoking Status: Former smoker Tobacco Use: Non-smoker Meaningful Use Info Meaningful Use Diagnoses (Choose all that apply): None applicable Code Visit Inpatient E&M: 65064 Disch Hosp
--- NOTE | 2019-09-04 15:37 | CASEMGMT ---
Case Management DC F/u Call: DC Date: 09/03/19 DC Diagnosis: #1 acute on chronic pancreatitis. #2 gastritis/esophagitis/Vasquez's esophagus. DC Disposition: Home Lace/Strata: 06/01 Called patient cell phone on listed demographics, ,answered, introduced self and role. Patient states that he is doing better, confirmed filled his prescriptions and denies any questions, concerns or issues with [facility], medications or f/u. Has a F/u appointment with Natasha Zamudio NP on 09/09/[address] [facility]. Thanked patient for choosing care at [facility] and ended conversation. Kibmerley Puentes RNCM
== END 2019-09-03 13:43 | disposition home or self-care (01) | DRG 440 ==
LOC: ED 08:27 → PCU 09:35
PROVIDERS: Anesthesiology; Surgery; Admitting Provider Family Medicine; Emergency Provider Emergency Medicine; Visit Provider Hospitalist
PROC: 0DJ08ZZ Inspection of Upper Intestinal Tract, Via Natural or Artificial Opening Endoscopic (ICD-10-PCS; CPT 43235; principal; 2019-08-31 06:55)
DX: K85.90 Acute pancreatitis without necrosis or infection, unspecified (principal); K86.1 Other chronic pancreatitis; K22.70 Barrett's esophagus without dysplasia; K29.70 Gastritis, unspecified, without bleeding; K20.9 Esophagitis, unspecified; K44.9 Diaphragmatic hernia without obstruction or gangrene; I25.10 Atherosclerotic heart disease of native coronary artery without angina pectoris; I10 Essential (primary) hypertension; E11.9 Type 2 diabetes mellitus without complications; G40.909 Epilepsy, unspecified, not intractable, without status epilepticus; E78.5 Hyperlipidemia, unspecified; Z90.49 Acquired absence of other specified parts of digestive tract; Z79.82 Long term (current) use of aspirin; Z87.891 Personal history of nicotine dependence; Z79.4 Long term (current) use of insulin; H40.9 Unspecified glaucoma; F43.10 Post-traumatic stress disorder, unspecified; K59.00 Constipation, unspecified
CPT/HCPCS: 36415; 74177; 80053; 80061; 81001; 82962; 83036; 83690; 83735; 84484; 85025; 85610; 88305; 88342; 93005; 97802; 97803; 99285; J7030; J7120; Q9967; A4216; J2405

== ENCOUNTER → 2020-04-24 15:00 | Outpatient (CLI) | payer MEDICARE, SELFPAY ==
[2019-08-30 09:53] VITALS: BMI 30.9
[2020-04-24 15:47] LABS: Absolute Lymphocyte Count 4.23 X10^3/uL (0.83-4.51); Absolute Neutrophil Count 8.8 X10^3/uL (2.0-7.7); Basophil# 0.06 X10^3/uL; Basophil% 0.4 % (0-1); Eosinophils% 1.4 % (0-5); Hematocrit 41.4 % (40-54); Hemoglobin 14.2 g/dL (13.0-16.5); Lymphocyte # 4.23 X10^3/ul (4.0); Lymphocyte % 29.8 % (19-41); Mean Corp Hgb Conc 34.3 g/dL (32-36); Mean Corpuscular Hgb 31.6 pg (27.0-32.0); Mean Platelet Vol. 10.1 fl (6.2-12.0); Monocyte# 0.85 X10^3/uL; NRBC Flagged by Analyzer 0 % (0-5); Platelet Count 209 K/mm3 (150-450); RBC Distribution Width CV 12.6 % (11.6-14.6); RBC Distribution Width SD 41.8 fl (35.1-43.9); White Blood Count 14.2 K/mm3 (4.4-11.0)
[2020-04-24 16:10] LABS: Hemoglobin A1c 6.7 % (3.8-5.6)
[2020-04-24 16:12] LABS: ALB/GLOB Ratio 1.2 RATIO (0.9-2.4); AST(SGOT) 22 U/L (15-37); Alanine Aminotransfer ALT/SGPT 41 U/L (16-61); Albumin, Serum 4.4 g/dL (3.2-5.0); Alkaline Phosphatase 73 U/L (45-117); Anion Gap 5 (5-15); BUN 12 mg/dL (7-18); BUN/Creat Ratio 10.3 RATIO (10-20); Calcium,Total 9.2 mg/dL (8.5-10.1); Chloride 103 mmol/L (98-107); Cholesterol 146 mg/dL (200); Creatinine, Serum 1.16 mg/dL (0.70-1.30); EST Glomerular Filtration Rate 70 mL/min (>60); Est Glom Filt Rate - Afr Amer 84 mL/min (>60); Globulin 3.7 g/dL (2.2-4.2); Glucose 111 mg/dL (74-106); High Density Lipoprotein 40 mg/dL; Potassium 3.2 mmol/L (3.5-5.1); Protein, Total 8.1 g/dL (6.4-8.2); Sodium Level 135 mmol/L (136-145); Triglycerides 126 mg/dL; Very Low Density Lipoprotein 25 mg/dL (5-40)
[2020-04-24 16:13] LABS: Vitamin D,25 Hydroxy 73.7 ng/mL
== END ==
PROVIDERS: Visit Provider Nurse Practitioner Family
DX: E11.9 Type 2 diabetes mellitus without complications (principal); I10 Essential (primary) hypertension; E78.2 Mixed hyperlipidemia; E55.9 Vitamin D deficiency, unspecified
CPT/HCPCS: 36415; 80053; 80061; 82306; 83036; 85025

== ENCOUNTER 2020-04-30 06:23 | Emergency (ER) | payer MEDICARE, SELFPAY ==
[2019-08-30 09:53] VITALS: BMI 30.9
[2020-04-30 06:24] VITALS: BP 175/111; BP 184/117; PULSE 100; RESP 20; TEMP 36.6; O2SAT 99; BMI 29.2
--- NOTE | 2020-04-30 06:34 | CT_ITS ---
STUDY: CT ABDOMEN AND PELVIS WITHOUT CONTRAST REASON FOR EXAM: Male, 55 years old. RUQ/BACK PAIN AFTER LIFTING, CHOLECYSTECTOMY RADIATION DOSAGE (If Supplied By Facility): CTDIvol = ( 9.70 ) mGy, DLP = ( 508.68 ) mGycm TECHNIQUE: Transaxial images were obtained from the dome of the diaphragm to the symphysis pubis without oral contrast, and without intravenous contrast. Sagittal and coronal images were reconstructed. Individualized dose optimization techniques were used for this CT. COMPARISON: CT abdomen pelvis from 08/30/2019 FINDINGS: The visualized lung bases are unremarkable. The visualized portions of the heart are within normal limits. There is decreased attenuation of the liver consistent with steatosis. There is non-visualization of the gallbladder, which may be secondary to either contraction or a prior cholecystectomy. Normal spleen. Normal pancreas. Normal bilateral adrenal glands. Normal right kidney. Normal left kidney. Normal visualized stomach. Normal small intestine. There are multiple colonic diverticula consistent with diverticulosis. The appendix is visualized and appears normal. Normal abdominal aorta. Normal inferior vena cava. Normal retroperitoneum. Normal urinary bladder. Normal abdominal wall. Normal osseous structures. No acute fracture. CT/Abdomen/Pelvis without Cont IMPRESSION: Negative unenhanced CT of the abdomen and pelvis for acute abnormality. Hepatic steatosis. Colonic diverticulosis without evidence for diverticulitis. Electronically Signed: Keith Jaramillo, at 7:25 EDT Tel , Service support ,
--- NOTE | 2020-04-30 06:37 | ED.VIS.GEN ---
History of Present Illness <JeromyBrock ramos - Last Filed: 04/30/20 07:33> Informant: Patient Narrative: Patient is a 55-year-old male who presents to the emergency department for right upper quadrant abdominal pain and upper back pain. This started 3 days ago. He states that he was lifting a bed whenever he felt a pop in his right upper quadrant. The pain is been constant since then. He has been taking Naprosyn for his symptoms which have not been helping. He is also been doing heating pads which do not help. He denies ever experiences before in the past. He has a history of cholecystectomy. He denies any nausea/vomiting. No change in bowel habits including any diarrhea, constipation, blood in stool or black tarry stools. No urinary symptoms. Denies any fevers or chills. No chest pain or shortness of breath. Certain movements do make the pain worse. No known relieving factors. Currently rates the pain as severe. Patient has second complaint of itching feet. No rashes noted. <Lazaro Sinclair - Last Filed: 05/01/20 00:14> Chief Complaint: Back Past Medical History - Family History Maternal Family History: Family History (Last Reviewed 07/02/19 @ 10:58 by DAFNE Walters) Mother Heart disease Paternal Family History: Family History (Last Reviewed 07/02/19 @ 10:58 by DAFNE Walters) Mother Heart disease Sibling Family History: Family History (Last Reviewed 07/02/19 @ 10:58 by DAFNE Walters) Mother Heart disease <JeromyBrock ramos - Last Filed: 04/30/20 07:33> Prior records reviewed: Yes Past Medical History: - - Diabetes, hypertension, hyperlipidemia Surgical History: cholecystectomy Smoking Status: Former smoker - Family History Maternal Family History: Family History (Last Reviewed 07/02/19 @ 10:58 by DAFNE Walters) Mother Heart disease Family History: Reports: Diabetes, Heart Disease Paternal Family History: Family History (Last Reviewed 07/02/19 @ 10:58 by DAFNE Walters) Mother Heart disease Family History: Reports: Cancer, Diabetes, Heart Disease Sibling Family History: Family History (Last Reviewed 07/02/19 @ 10:58 by DAFNE Walters) Mother Heart disease Family History: Reports: Cancer - Sister with breast cancer, brother with prostate cancer <Lazaro Sinclair - Last Filed: 05/01/20 00:14> - Allergies and Home Meds Allergies/Adverse Reactions: Allergies hydrocodone bitartrate [From Vicodin] Allergy (Verified 04/30/20 06:28) Angioedema lisinopril Allergy (Verified 04/30/20 06:28) Angioedema tramadol Allergy (Verified 04/30/20 06:28) Itching cyclobenzaprine Adverse Reaction (Severe, Verified 04/30/20 06:28) Skin crawling morphine Adverse Reaction (Verified 04/30/20 06:28) Itching Primary Care Physician: Mame Schneider [Primary Care Provider] - 1-2 Days if not improving Review of Systems All systems negative except as indicated General: Denies: Chills, Fever Eyes: Denies: Visual changes - bilaterally ENT: Denies: Rhinorrhea Cardiovascular: Denies: Chest pain, Palpitations Respiratory: Denies: Dyspnea, Cough Gastrointestinal: Reports: Abdominal pain. Denies: Nausea, Vomiting, Diarrhea, Constipation, Melena Musculoskeletal: Reports: Back pain. Denies: Myalgias Skin: Denies: Rash, Wounds Neurological: Denies: Headache, Weakness, Parasthesia, Numbness Psych: Denies: Suicidal ideations <Lazaro Sinclair - Last Filed: 05/01/20 00:14> Physical Exam Vital Signs/Narrative: Vital Signs Temp Pulse Resp BP Pulse Ox 04/30/20 06:24 98 F 100 20 H 175/111 H 99 <Brock Hoff - Last Filed: 04/30/20 07:33> Vital Signs/Narrative: Vital Signs Temp Pulse Resp BP Pulse Ox 04/30/20 06:24 98 F 100 20 H 175/111 H 99 Inital Vital Signs reviewed: Yes General: Well nourished, Well developed, No Acute Distress Head: Normocephalic, Atraumatic Eyes: Perrl, EOMI ENT: Moist mucous membranes, No rhinorrhea Neck: Supple, Nontender Cardiovascular: Regular rate, Regular rhythm, No murmurs Respiratory: No distress, CTA bilaterally, Chest nontender Abdomen: Soft, Nondistended, Normal bowel sounds, Tender - Right upper quadrant pain. Negative for: Guarding, Rebound tenderness, Rovsig's sign Back: Normal Inspection, - - Tender to palpation along thoracic paraspinal musculature bilaterally.. Negative for: Spinal tenderness Extremities: Nontender, No edema Skin: Normal color, No rash Neurological: Alert, Oriented x3, Cranial nerves II-XII grossly intact, Normal Strength, Normal Sensation Psychological: Normal affect, Normal Mood <Lazaro Sinclair - Last Filed: 05/01/20 00:14> Diagnostic/Tx/Re-eval - Medical Decision Making Patient was endorsed to me by the outgoing physician. I reevaluated the patient at 0 730, he continues to have some abdominal pain. His CT imaging did result and was negative for any sort of acute injury. Plan is for the patient to be discharged with a course of lidocaine patches and conservative management with rest ice heat and [id number] analgesics as needed. Patient was discharged in stable condition. <Brock Hoff - Last Filed: 04/30/20 07:33> - Medical Decision Making Patient presents to emergency department for right upper quadrant abdominal pain after lifting a bed. He did feel a pop in his abdomen. Will check basic lab work along with CT scan of the abdomen/pelvis to evaluate for hernia. No signs of obstruction as he has not been vomiting and denies any constipation. Basic lab work did not reveal any significant acute abnormality. I did review the CT scan myself which did not show any evidence of hernia. The official read is currently pending. Believe that his symptoms are most likely related to abdominal wall strain. Will require to some rest and conservative management at home. Am currently signing the patient out to oncoming attending given the end of my shift. I did discuss plan with the patient and lab work. He understands and is agreeable with this plan. We will have him follow-up with his PCP. We will write for lidocaine patches for treatment at home as he does have many allergies to oral medications. He can continue to take Tylenol. <Lazaro Sinclair - Last Filed: 05/01/20 00:14> ED Disposition <Brock Hoff - Last Filed: 04/30/20 07:33> <Lazaro Sinclair - Last Filed: 05/01/20 00:14> - Plan for ED Patient: Disposition: Home or Assisted Living Diagnosis: Abdominal pain, Muscle strain Instructions: ED Strain Abdominal Muscle Prescriptions: Lidocaine [Lidoderm Patch] 1 patch TOPICAL DAILY #3 patch Prescription Printed Referrals: [facility],Mame Chapman [Primary Care Provider] - 1-2 Days if not improving
[2020-04-30 06:53] LABS: Absolute Lymphocyte Count 2.83 X10^3/uL (0.83-4.51); Absolute Neutrophil Count 10.2 X10^3/uL (2.0-7.7); Basophil# 0.04 X10^3/uL; Basophil% 0.3 % (0-1); Eosinophils% 0.7 % (0-5); Hematocrit 40.9 % (40-54); Hemoglobin 13.8 g/dL (13.0-16.5); Lymphocyte # 2.83 X10^3/ul (4.0); Lymphocyte % 19.7 % (19-41); Mean Corp Hgb Conc 33.7 g/dL (32-36); Mean Corpuscular Hgb 31.3 pg (27.0-32.0); Mean Corpuscular Volume 92.7 fL (80-94); Mean Platelet Vol. 9.5 fl (6.2-12.0); Monocyte# 1.15 X10^3/uL; NRBC Flagged by Analyzer 0 % (0-5); Neutrophil # 10.23 X10^3/uL (2.7-7.7); Neutrophil % 71.1 % (47-70); Platelet Count 222 K/mm3 (150-450); RBC Distribution Width CV 12.6 % (11.6-14.6); RBC Distribution Width SD 42.4 fl (35.1-43.9); Red Blood Count 4.41 M/mm3 (4.6-6.2); White Blood Count 14.4 K/mm3 (4.4-11.0)
[2020-04-30 07:09] LABS: ALB/GLOB Ratio 1.2 RATIO (0.9-2.4); AST(SGOT) 20 U/L (15-37); Alanine Aminotransfer ALT/SGPT 32 U/L (16-61); Albumin, Serum 4.4 g/dL (3.2-5.0); Alkaline Phosphatase 71 U/L (45-117); Anion Gap 9 (5-15); BUN 14 mg/dL (7-18); BUN/Creat Ratio 10.4 RATIO (10-20); Calcium,Total 9.3 mg/dL (8.5-10.1); Chloride 104 mmol/L (98-107); Creatinine, Serum 1.34 mg/dL (0.70-1.30); EST Glomerular Filtration Rate 59 mL/min (>60); Est Glom Filt Rate - Afr Amer 71 mL/min (>60); Estimated Creatinine Clearance 64.31 ml/min; Globulin 3.8 g/dL (2.2-4.2); Glucose 181 mg/dL (74-106); Lipase 510 U/L (73-393); Potassium 3.6 mmol/L (3.5-5.1); Protein, Total 8.2 g/dL (6.4-8.2); Sodium Level 138 mmol/L (136-145)
[2020-04-30] MEDS: Lidocaine 5% Patch 1 PATCH TOPICAL (07:55)
== END 2020-04-30 08:14 | disposition home or self-care (01) ==
PROVIDERS: Emergency Provider Emergency Medicine
DX: S39.011A Strain of muscle, fascia and tendon of abdomen, initial encounter (principal); M54.6 Pain in thoracic spine; X50.9XXA Other and unspecified overexertion or strenuous movements or postures, initial encounter; Y93.9 Activity, unspecified; Y92.9 Unspecified place or not applicable; Y99.9 Unspecified external cause status; E11.9 Type 2 diabetes mellitus without complications; I10 Essential (primary) hypertension; E78.5 Hyperlipidemia, unspecified; Z79.82 Long term (current) use of aspirin; Z79.4 Long term (current) use of insulin; Z79.899 Other long term (current) drug therapy; Z87.891 Personal history of nicotine dependence; Z90.49 Acquired absence of other specified parts of digestive tract
CPT/HCPCS: 74176; 80053; 83690; 85025; 99284; A4216

== ENCOUNTER 2020-04-30 11:13 | Emergency (ER) | payer MEDICARE, SELFPAY ==
[2020-04-30 06:24] VITALS: BMI 29.2
[2020-04-30 11:14] VITALS: BP 156/93; PULSE 98; RESP 18; TEMP 36.8; O2SAT 98; BMI 29.2
--- NOTE | 2020-04-30 11:36 | ED.DCSUM_ITS ---
History of Present Illness Chief Complaint: Abd Pain Informant: Patient Onset: Yesterday Context: Gradual Onset Timing: Continuous Current Severity: Moderate Maximum Severity: Moderate Narrative: The patient is a 55-year-old male with medical history significant for prior pancreatitis the presents to the emergency department with epigastric pain into his back. The patient was actually discharged about 5 hours ago. At that point, he underwent lab work which showed mild elevation of his lipase. His CT was negative for acute process. He was treated with lidocaine patch. He states that he went home and his pain has still persisted. He said 2 episodes of nonbloody emesis. He denies any fevers or chills. He denies alcohol abuse. He denies any other systemic complaints. Prior similar symptoms: Yes Recent Illness/Hospitalization: No Past Medical History - Allergies and Home Meds Allergies/Adverse Reactions: Allergies hydrocodone bitartrate [From Vicodin] Allergy (Verified 04/30/20 11:16) Angioedema lisinopril Allergy (Verified 04/30/20 11:16) Angioedema tramadol Allergy (Verified 04/30/20 11:16) Itching cyclobenzaprine Adverse Reaction (Severe, Verified 04/30/20 11:16) Skin crawling morphine Adverse Reaction (Verified 04/30/20 11:16) Itching Primary Care Physician: Mame Schneider [Primary Care Provider] - Prior records reviewed: Yes Past Medical History: - - Pancreatitis, GERD, hypertension Surgical History: cholecystectomy Smoking Status: Former smoker - Family History Maternal Family History: Family History (Last Reviewed 07/02/19 @ 10:58 by DAFNE Walters) Mother Heart disease Family History: Reports: Diabetes, Heart Disease Paternal Family History: Family History (Last Reviewed 07/02/19 @ 10:58 by DAFNE Walters) Mother Heart disease Family History: Reports: Cancer, Diabetes, Heart Disease Sibling Family History: Family History (Last Reviewed 07/02/19 @ 10:58 by DAFNE Walters) Mother Heart disease Family History: Reports: Cancer - Sister with breast cancer, brother with prostate cancer Review of Systems General: Denies: Chills, Fever, Sweats Eyes: Denies: Visual changes - bilaterally, Diplopia ENT: Denies: Rhinorrhea, Sore throat Cardiovascular: Denies: Chest pain, Palpitations Respiratory: Denies: Dyspnea, Cough, Dyspnea on exertion Gastrointestinal: Reports: Abdominal pain, Nausea, Vomiting. Denies: Diarrhea, Melena, Hematochezia Genitourinary: Denies: Dysuria, Hematuria, Frequency Musculoskeletal: Reports: Back pain. Denies: Extremity Pain Skin: Denies: Rash, Wounds Neurological: Denies: Headache, Weakness, Numbness Physical Exam Vital Signs/Narrative: Vital Signs Temp Pulse Resp BP Pulse Ox 04/30/20 11:14 98.2 F 98 18 156/93 H 98 Inital Vital Signs reviewed: Yes General: Well nourished, Well developed, No Acute Distress Head: Normocephalic, Atraumatic Eyes: Perrl, EOMI ENT: Moist mucous membranes, No rhinorrhea Neck: Supple, Nontender Cardiovascular: Regular rate, Regular rhythm, No murmurs Respiratory: No distress, CTA bilaterally, Chest nontender Abdomen: Soft, Nondistended, Normal bowel sounds, Tender. Negative for: Guarding, Rebound tenderness Back: Nontender, Normal Inspection Extremities: Nontender, No edema Skin: Normal color, No rash Neurological: Alert, Oriented x3, Cranial nerves II-XII grossly intact, Normal Strength, Normal Sensation Psychological: Normal affect, Normal Mood Diagnostic/Tx/Re-eval Abnormal Lab Results 04/30/20 04/30/20 11:50 11:50 WBC 13.5 H RBC 4.42 L Hgb 14.1 Hct 41.5 MCV 93.9 MCH 31.9 MCHC 34.0 RDW Std Deviation 43.5 RDW Coeff of Armin 12.7 Plt Count 221 MPV 9.6 Immature Gran % (Auto) 0.400 Neut % (Auto) 77.6 H Lymph % (Auto) 14.7 L Cochran % (Auto) 6.7 Eos % (Auto) 0.3 Baso % (Auto) 0.3 Absolute Neuts (auto) 10.5 H Absolute Lymphs (auto) 1.99 Nucleated RBC % 0 Sodium 137 Potassium 3.6 Chloride 103 Carbon Dioxide 28.0 Anion Gap 6 BUN 14 Creatinine 1.35 H Estim Creat Clear Calc 63.84 Est GFR (MDRD) Af Amer 71 Est GFR (MDRD) Non-Af 58 L BUN/Creatinine Ratio 10.4 Glucose 174 H Calcium 9.7 Total Bilirubin 1.00 AST 20 ALT 31 Alkaline Phosphatase 72 Total Protein 8.5 H Albumin 4.7 Globulin 3.8 Albumin/Globulin Ratio 1.2 Lipase 563 H - Medical Decision Making The patient presents with persistent midepigastric pain into his back. He does have a history of recurrent pancreatitis. I did review his work-up and CT from earlier. There is no evidence of acute process. I did repeat his lab work. H is lipase has not dramatically changed. His labs are otherwise unremarkable. Patient was given oral oxycodone with some improvement of his symptoms. I do feel this is more likely an exacerbation of his pancreatitis. I do feel the patient is safe for outpatient follow-up. He agrees with this plan of care. Impression 1. Exacerbation of chronic pancreatitis ED Disposition - Plan for ED Patient: Instructions: ED PEPTIC ULCER vs GASTRITIS Prescriptions: Oxycodone [Oxyir] 5 mg PO Q6H PRN PRN 3 Days #12 tab PRN Reason: Pain Or Fever Prescription Printed Referrals: Mame Schneider [Primary Care Provider] -
[2020-04-30] MEDS: Ondansetron 4 MG/2 ML Vial IV (11:54)
[2020-04-30] MEDS: 0.9% Normal Saline 1,000 ML 1000 ML IV (11:54)
[2020-04-30] MEDS: fentaNYL 100 MCG/2 ML Ampul 50 MCG IV (11:54)
[2020-04-30 12:10] LABS: Absolute Lymphocyte Count 1.99 X10^3/uL (0.83-4.51); Absolute Neutrophil Count 10.5 X10^3/uL (2.0-7.7); Basophil# 0.04 X10^3/uL; Basophil% 0.3 % (0-1); Eosinophil# 0.04 X10^3/uL; Eosinophils% 0.3 % (0-5); Hematocrit 41.5 % (40-54); Hemoglobin 14.1 g/dL (13.0-16.5); Lymphocyte # 1.99 X10^3/ul (4.0); Lymphocyte % 14.7 % (19-41); Mean Corpuscular Hgb 31.9 pg (27.0-32.0); Mean Corpuscular Volume 93.9 fL (80-94); Mean Platelet Vol. 9.6 fl (6.2-12.0); Monocyte% 6.7 % (0-10); NRBC Flagged by Analyzer 0 % (0-5); Neutrophil # 10.48 X10^3/uL (2.7-7.7); Neutrophil % 77.6 % (47-70); Platelet Count 221 K/mm3 (150-450); RBC Distribution Width CV 12.7 % (11.6-14.6); RBC Distribution Width SD 43.5 fl (35.1-43.9); Red Blood Count 4.42 M/mm3 (4.6-6.2); White Blood Count 13.5 K/mm3 (4.4-11.0)
[2020-04-30 12:26] LABS: ALB/GLOB Ratio 1.2 RATIO (0.9-2.4); AST(SGOT) 20 U/L (15-37); Alanine Aminotransfer ALT/SGPT 31 U/L (16-61); Albumin, Serum 4.7 g/dL (3.2-5.0); Alkaline Phosphatase 72 U/L (45-117); Anion Gap 6 (5-15); BUN 14 mg/dL (7-18); BUN/Creat Ratio 10.4 RATIO (10-20); Calcium,Total 9.7 mg/dL (8.5-10.1); Chloride 103 mmol/L (98-107); Creatinine, Serum 1.35 mg/dL (0.70-1.30); EST Glomerular Filtration Rate 58 mL/min (>60); Est Glom Filt Rate - Afr Amer 71 mL/min (>60); Estimated Creatinine Clearance 63.84 ml/min; Globulin 3.8 g/dL (2.2-4.2); Glucose 174 mg/dL (74-106); Lipase 563 U/L (73-393); Potassium 3.6 mmol/L (3.5-5.1); Protein, Total 8.5 g/dL (6.4-8.2); Sodium Level 137 mmol/L (136-145)
[2020-04-30] MEDS: oxyCODONE 5 MG Tablet 10 MG PO (13:20)
[2020-04-30] MEDS: HYDROmorphone 0.5 MG/0.5 ML SYRINGE IV (14:03)
[2020-04-30 14:09] VITALS: BP 128/71; PULSE 72; RESP 16; O2SAT 98
== END 2020-04-30 14:10 | disposition home or self-care (01) ==
LOC: ED 12:34
PROVIDERS: Emergency Provider Emergency Medicine
DX: K86.1 Other chronic pancreatitis (principal); S39.011A Strain of muscle, fascia and tendon of abdomen, initial encounter; M54.6 Pain in thoracic spine; X50.9XXA Other and unspecified overexertion or strenuous movements or postures, initial encounter; Y93.9 Activity, unspecified; Y92.9 Unspecified place or not applicable; Y99.9 Unspecified external cause status; E11.9 Type 2 diabetes mellitus without complications; I10 Essential (primary) hypertension; E78.5 Hyperlipidemia, unspecified; K21.9 Gastro-esophageal reflux disease without esophagitis; Z79.82 Long term (current) use of aspirin; Z79.4 Long term (current) use of insulin; Z79.899 Other long term (current) drug therapy; Z90.49 Acquired absence of other specified parts of digestive tract; Z87.891 Personal history of nicotine dependence
CPT/HCPCS: 74176; 80053; 83690; 85025; 96361; 96374; 96375; 99285; J7030; A4216; J2405

== ENCOUNTER → 2020-10-26 08:16 | Outpatient (CLI) | payer MEDICARE, MEDICAID, SELFPAY ==
[2020-10-06 11:23] VITALS: BMI 30.7
[2020-10-26 08:48] LABS: Hematocrit 43.4 % (40-54); Hemoglobin 14.6 g/dL (13.0-16.5); Mean Corp Hgb Conc 33.6 g/dL (32-36); Mean Corpuscular Hgb 30.5 pg (27.0-32.0); Mean Corpuscular Volume 90.8 fL (80-94); Mean Platelet Vol. 9.6 fl (6.2-12.0); Platelet Count 204 K/mm3 (150-450); RBC Distribution Width CV 11.9 % (11.6-14.6); RBC Distribution Width SD 39.6 fl (35.1-43.9); Red Blood Count 4.78 M/mm3 (4.6-6.2); White Blood Count 9.5 K/mm3 (4.4-11.0)
[2020-10-26 09:07] LABS: Vitamin B12 524 pg/mL (211-911)
[2020-10-26 09:52] LABS: ALB/GLOB Ratio 1.2 RATIO (0.9-2.4); AST(SGOT) 20 U/L (15-37); Alanine Aminotransfer ALT/SGPT 35 U/L (16-61); Albumin, Serum 4.5 g/dL (3.2-5.0); Alkaline Phosphatase 68 U/L (45-117); Anion Gap 11 (5-15); BUN 15 mg/dL (7-18); BUN/Creat Ratio 12.2 RATIO (10-20); Calcium,Total 9.7 mg/dL (8.5-10.1); Chloride 102 mmol/L (98-107); Creatinine, Serum 1.23 mg/dL (0.70-1.30); EST Glomerular Filtration Rate 65 mL/min (>60); Est Glom Filt Rate - Afr Amer 78 mL/min (>60); Globulin 3.6 g/dL (2.2-4.2); Glucose 149 mg/dL (74-106); Potassium 3.8 mmol/L (3.5-5.1); Protein, Total 8.1 g/dL (6.4-8.2); Sodium Level 135 mmol/L (136-145); Thyroid Stim Hormone (TSH) 2.42 uIU/mL (0.358-3.74)
[2020-10-29 03:07] LABS: Free Lambda Light Chains 20.6 mg/L (5.7-26.3)
[2020-10-29 13:06] LABS: KEPPRA (LEVETIRACETAM) 10.7 ug/mL (10.0-40.0)
== END ==
PROVIDERS: Referring Provider Psychiatry & Neurology Neurology; Visit Provider Psychiatry & Neurology Neurology
DX: G40.409 Other generalized epilepsy and epileptic syndromes, not intractable, without status epilepticus (principal); I10 Essential (primary) hypertension; G62.9 Polyneuropathy, unspecified
CPT/HCPCS: 80053; 80177; 82140; 82607; 82746; 83883; 84443; 85027

== ENCOUNTER 2020-12-30 07:11 | Observation (INO) | payer MEDICARE, MEDICAID, SELFPAY ==
[2020-12-30] VITALS (9 sets, daily range): BP systolic 140–162; BP diastolic 80–107; PULSE 75–95; RESP 16–18; TEMP 36.6–37.1; O2SAT 97–100; BMI 28.8; BMI 28.1
--- NOTE | 2020-12-30 07:32 | CT_ITS ---
EXAM: CT ABDOMEN AND PELVIS WITHOUT INTRAVENOUS CONTRAST CLINICAL INDICATION: flank pain TECHNIQUE: Helically acquired images were obtained of the abdomen and pelvis without intravenous contrast. This CT exam was performed using one or more of the following dose reduction techniques: automated exposure control, adjustment of the mA and/or kV according to patient size, and/or use of iterative reconstruction technique. This report was created using [employer] report generation technology. COMPARISON: CT abdomen and pelvis without contrast 04/30/2020. FINDINGS: LOWER THORAX: The lung bases are clear although there are breathing motion artifacts. No cardiomegaly. No significant pericardial effusion. ABDOMEN: LIVER: Pronounced diffuse fatty infiltration of the liver. GALLBLADDER AND BILE DUCTS: Postsurgical absence of the gallbladder. No intrahepatic or extrahepatic biliary ductal dilatation. No calcified gallstones. No gallbladder distention or wall edema. PANCREAS: Unremarkable. No focal cystic mass. SPLEEN: Unremarkable. Normal size without focal cystic or solid mass. ADRENALS: Unremarkable. No nodules. KIDNEYS AND URETERS: Small round hypodensity in the left kidney is most likely cyst. Renal ultrasound will help confirm. Otherwise both kidneys are normal. No stones or hydronephrosis. Normal renal size and position. STOMACH AND BOWEL: Suspicious intramural thickening in the horizontal portion of the duodenum (series 2, images 69-74). I am unable to confirm this in the sagittal view. No stomach or bowel distention. PELVIS: APPENDIX: Normal. BLADDER: Unremarkable. REPRODUCTIVE: Unremarkable as visualized. No mass. ABDOMEN and PELVIS: INTRAPERITONEAL SPACE: Unremarkable. No ascites or other fluid collection. No free air. BONES/JOINTS: Unremarkable. No suspicious lytic or blastic abnormality. SOFT TISSUES: Unremarkable. No discrete abdominal or pelvic wall hernia. VASCULATURE: Unremarkable. Abdominal aorta is non-dilated. LYMPH NODES: Unremarkable. No enlarged lymph nodes. CT/Abdomen/Pelvis without Cont IMPRESSION: 1. Equivocal intramural thickening in the horizontal portion of the duodenum (series 2, images 69-74). This is not confirmed in the sagittal view. This is unchanged when compared to 04/30/2020. Endoscopy may help clarify if clinically warranted. 2. No CT evidence of stones in the kidneys, ureters and urinary bladder. 3. Pronounced diffuse hepatic steatosis is unchanged. Electronically Signed: Alejandro Jauregui MD at 8:16 EDT , Service support ,
[2020-12-30] MEDS: Ondansetron 4 MG/2 ML Vial IV ×2 (07:43→16:12)
[2020-12-30] MEDS: oxyCODONE 5 MG Tablet 10 MG PO (07:43)
--- NOTE | 2020-12-30 07:49 | ED.DCSUM_ITS ---
History of Present Illness Chief Complaint: Flank Pain Informant: Patient Onset: Days Context: Gradual Onset Timing: Waxes and wanes Current Severity: Moderate Maximum Severity: Moderate Narrative: Patient presents with right-sided abdominal pain for the past 3 days. Pain was gradual in onset and waxing and waning. States he has had some nausea and vomited once. He had normal bowel movements. He has a history of enlarged prostate with difficulty urinating but has been able to pass urine. Patient states he is actually scheduled today for a prostate biopsy. He denies fever or chills. Only prior abdominal surgery is a cholecystectomy. 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: Chronic Past Medical History - Allergies and Home Meds Allergies/Adverse Reactions: Allergies lisinopril Allergy (Verified 12/30/20 07:13) Angioedema cyclobenzaprine Adverse Reaction (Severe, Verified 12/30/20 07:13) Skin crawling hydrocodone bitartrate [From Vicodin] Adverse Reaction (Verified 12/30/20 07:13) Itching morphine Adverse Reaction (Verified 12/30/20 07:13) Itching tramadol Adverse Reaction (Verified 12/30/20 07:13) Itching Primary Care Physician: Souleymane Kelly NP, [employer] WAITER-C [Primary Care Provider] - Prior records reviewed: Yes Surgical History: cholecystectomy Smoking Status: Former smoker - Family History Maternal Family History: Family History (Last Reviewed 12/08/20 @ 15:44 by Lu Wilkins) Mother Heart disease Sister Cerebral aneurysm Family History: Reports: Diabetes, Heart Disease Paternal Family History: Family History (Last Reviewed 12/08/20 @ 15:44 by Lu Wilkins) Mother Heart disease Sister Cerebral aneurysm Family History: Reports: Cancer, Diabetes, Heart Disease Sibling Family History: Family History (Last Reviewed 12/08/20 @ 15:44 by Lu Wilkins) Mother Heart disease Sister Cerebral aneurysm Family History: Reports: Cancer - Sister with breast cancer, brother with prostate cancer Review of Systems General: Denies: Chills, Fever Eyes: Denies: Visual changes - bilaterally ENT: Denies: Bilateral ear pain Cardiovascular: Denies: Chest pain Respiratory: Denies: Dyspnea, Cough Gastrointestinal: Reports: Abdominal pain, Nausea, Vomiting Genitourinary: Denies: Dysuria Musculoskeletal: Denies: Swelling, Extremity Pain Skin: Denies: Rash Neurological: Denies: Headache Hematologic: Denies: Easy bruising, Easy bleeding Allergy: Denies: Uticaria Physical Exam Vital Signs/Narrative: Vital Signs Temp Pulse Resp BP Pulse Ox 12/30/20 07:13 98.1 F 95 17 153/100 H 97 Inital Vital Signs reviewed: Yes General: Well nourished, Well developed Head: Normocephalic Neck: Supple Cardiovascular: Regular rate, Regular rhythm Respiratory: No distress, CTA bilaterally Abdomen: Soft, Tender - Right mid abdominal tenderness to palpation., Hypoactive bowel sounds. Negative for: Guarding, Rebound tenderness Back: CVA tenderness - Right CVA tenderness. Extremities: Nontender Skin: Normal color, No rash Neurological: Alert, Oriented x3 Psychological: Normal affect Diagnostic/Tx/Re-eval Impressions Abdomen/Pelvis CT 12/30/20 07:32 IMPRESSION: 1. Equivocal intramural thickening in the horizontal portion of the duodenum (series 2, images 69-74). This is not confirmed in the sagittal view. This is unchanged when compared to 04/30/2020. Endoscopy may help clarify if clinically warranted. 2. No CT evidence of stones in the kidneys, ureters and urinary bladder. 3. Pronounced diffuse hepatic steatosis is unchanged. Electronically Signed: Alejandro Jauregui MD at 8:16 EDT , Service support , 12/30/20 07:32 Abdomen/Pelvis without Cont [CT] Stat Laboratory Results 12/30/20 12/30/20 07:42 07:42 WBC 11.7 H RBC 4.39 L Hgb 13.7 Hct 41.4 MCV 94.3 H MCH 31.2 MCHC 33.1 RDW Std Deviation 43.5 RDW Coeff of Armin 12.5 Plt Count 200 MPV 9.7 Immature Gran % (Auto) 0.300 Neut % (Auto) 77.2 H Lymph % (Auto) 12.2 L Power % (Auto) 9.1 Eos % (Auto) 0.9 Baso % (Auto) 0.3 Absolute Neuts (auto) 9.0 H Absolute Lymphs (auto) 1.43 Nucleated RBC % 0 Sodium 136 Potassium 3.6 Chloride 105 Carbon Dioxide 28.0 Anion Gap 3 L BUN 11 Creatinine 1.15 Estim Creat Clear Calc 74.94 Est GFR (MDRD) Af Amer 85 Est GFR (MDRD) Non-Af 70 BUN/Creatinine Ratio 9.6 L Glucose 177 H Calcium 8.9 Total Bilirubin 1.00 Direct Bilirubin 0.31 H AST 22 ALT 44 Alkaline Phosphatase 75 Total Protein 8.2 Albumin 4.2 Globulin 4.0 Lipase 1149 H - Medical Decision Making Patient was given oxycodone and Zofran for pain. The fluids were given. Patient's labs returned with elevated lipase over 1100. Patient does admit to drinking a few beers couple days ago. Patient will be admitted for hydration and further treatment of his pancreatitis. ED Disposition - Plan for ED Patient: Disposition: Acute Care Hospital [facility] Diagnosis: Pancreatitis Referrals: Souleymane Kelly NP, [employer] SERV[employer] WAITER-C [Primary Care Provider] -
[2020-12-30 07:54] LABS: Absolute Lymphocyte Count 1.43 X10^3/uL (0.83-4.51); Basophil# 0.04 X10^3/uL; Basophil% 0.3 % (0-1); Eosinophil# 0.11 X10^3/uL; Eosinophils% 0.9 % (0-5); Hematocrit 41.4 % (40-54); Hemoglobin 13.7 g/dL (13.0-16.5); Lymphocyte # 1.43 X10^3/ul (4.0); Lymphocyte % 12.2 % (19-41); Mean Corp Hgb Conc 33.1 g/dL (32-36); Mean Corpuscular Hgb 31.2 pg (27.0-32.0); Mean Corpuscular Volume 94.3 fL (80-94); Mean Platelet Vol. 9.7 fl (6.2-12.0); Monocyte# 1.06 X10^3/uL; Monocyte% 9.1 % (0-10); NRBC Flagged by Analyzer 0 % (0-5); Neutrophil # 9.04 X10^3/uL (2.7-7.7); Neutrophil % 77.2 % (47-70); Platelet Count 200 K/mm3 (150-450); RBC Distribution Width CV 12.5 % (11.6-14.6); RBC Distribution Width SD 43.5 fl (35.1-43.9); Red Blood Count 4.39 M/mm3 (4.6-6.2); White Blood Count 11.7 K/mm3 (4.4-11.0)
[2020-12-30 08:11] LABS: AST(SGOT) 22 U/L (15-37); Alanine Aminotransfer ALT/SGPT 44 U/L (16-61); Albumin, Serum 4.2 g/dL (3.2-5.0); Alkaline Phosphatase 75 U/L (45-117); Anion Gap 3 (5-15); BUN 11 mg/dL (7-18); BUN/Creat Ratio 9.6 RATIO (10-20); Bilirubin, Direct 0.31 mg/dL (0.00-0.30); Calcium,Total 8.9 mg/dL (8.5-10.1); Chloride 105 mmol/L (98-107); Creatinine, Serum 1.15 mg/dL (0.70-1.30); EST Glomerular Filtration Rate 70 mL/min (>60); Est Glom Filt Rate - Afr Amer 85 mL/min (>60); Estimated Creatinine Clearance 74.94 ml/min; Glucose 177 mg/dL (74-106); Lipase 1149 U/L (73-393); Potassium 3.6 mmol/L (3.5-5.1); Protein, Total 8.2 g/dL (6.4-8.2); Sodium Level 136 mmol/L (136-145)
--- NOTE | 2020-12-30 09:34 | PCM.DC.SUM ---
Discharge Date and Diagnosis - Problem List Patient Problems: Active and Suspected Problems (Last Reviewed 12/08/20 @ 15:44 by Lu Wilkins) Pancreatitis (Acute) Date of Admission: 08/30/19 - Primary Discharge Diagnosis Acute Problems: Active Problems (Last Reviewed 12/08/20 @ 15:44 by Lu Wilkins) Pancreatitis (Acute) - Secondary Discharge Diagnosis Chronic Problems: Chronic Problems (Last Reviewed 12/08/20 @ 15:44 by Lu Wilkins) Diabetes (Chronic) GERD (gastroesophageal reflux disease) (Chronic) Family history of cerebral aneurysm (Chronic) Cerebrovascular disease (Chronic) Polyneuropathy (Chronic) Other generalized epilepsy and epileptic syndromes, not intractable, 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) Essential (primary) hypertension (Chronic) Hyperlipidemia (Chronic) Hospital Course and Treatment Imaging Results: 12/30/20 07:32 Abdomen/Pelvis without Cont [CT] Stat Operations: None Summary of Care Provided: The patient is a 55 year old M [] Patient Problems: Active and Suspected Problems (Last Reviewed 12/08/20 @ 15:44 by Lu Wilkins) Pancreatitis (Acute) - Physical Exam Vitals/I&O's: Vital Signs Temp Pulse Resp BP Pulse Ox 98.1 F 90 16 162/107 H 98 12/30/20 09:32 12/30/20 09:32 12/30/20 09:32 12/30/20 09:32 12/30/20 09:32 Oxygen Delivery Method Room Air Weight: 200 lb 13.458 oz Body Mass Index (BMI) 28.8 Finger Stick Blood Glucose 152 Laboratory Results 12/30/20 07:42: WBC 11.7 H, RBC 4.39 L, Hgb 13.7, Hct 41.4, MCV 94.3 H, MCH 31.2, MCHC 33.1, RDW Std Deviation 43.5, RDW Coeff of Armin 12.5, Plt Count 200, MPV 9.7, Immature Gran % (Auto) 0.300, Neut % (Auto) 77.2 H, Lymph % (Auto) 12.2 L, Sawyer % (Auto) 9.1, Eos % (Auto) 0.9, Baso % (Auto) 0.3, Absolute Neuts (auto) 9.0 H, Absolute Lymphs (auto) 1.43, Nucleated RBC % 0 12/30/20 07:42: Sodium 136, Potassium 3.6, Chloride 105, Carbon Dioxide 28.0, Anion Gap 3 L, BUN 11, Creatinine 1.15, Estim Creat Clear Calc 74.94, Est GFR (MDRD) Af Amer 85, Est GFR (MDRD) Non-Af 70, BUN/Creatinine Ratio 9.6 L, Glucose 177 H, Calcium 8.9, Total Bilirubin 1.00, Direct Bilirubin 0.31 H, AST 22, ALT 44, Alkaline Phosphatase 75, Total Protein 8.2, Albumin 4.2, Globulin 4.0, Lipase 1149 H Home Medications: Medications to take at Discharge Nitroglycerin (INPATIENT USE) [Nitrostat] 0.4 mg SUBLINGUAL Q5M PRN 07/15/13 metFORMIN HCl [Glucophage] 500 mg PO BID 11/28/13 Loratadine 10 mg PO DAILY 06/01/17 amitriptyline 25 mg tablet 25 mg PO DAILY 07/03/18 Cholecalciferol (Vitamin D3) [Vitamin D3] 1 cap PO DAILY 11/09/18 aspirin 81 mg chewable tablet 81 mg PO DAILY@0800 #30 tab 04/09/20 magnesium oxide 400 mg (241.3 mg magnesium) tablet 400 mg PO BID #60 tab 04/09/20 hydrochlorothiazide 25 mg tablet 25 mg PO DAILY #30 tab 06/05/20 pantoprazole 40 mg tablet,delayed release 40 mg PO DAILY #90 tab 07/03/20 pravastatin 20 mg tablet 20 mg PO QHS 07/03/20 pravastatin 40 mg tablet 40 mg PO DAILY #30 tab 07/03/20 gabapentin 300 mg capsule 300 mg PO BID cap 10/06/20 levetiracetam 500 mg tablet 500 mg PO BID #60 tab 12/08/20 Amlodipine Besylate [Norvasc] 5 mg PO DAILY 12/30/20 Ciprofloxacin HCl 500 mg PO BID 12/30/20 Insulin Glargine,Hum.rec.anlog [Lantus] 10 unit SQ QHS 12/30/20 Losartan Potassium [Cozaar] 25 mg PO DAILY 12/30/20 Primary Care Physician: Souleymane Kelly NP, STUDENT ACCOUNTS MANAGER-C [Primary Care Provider] - Medical Necessity - Tobacco Use Smoking Status: Former smoker
--- NOTE | 2020-12-30 09:36 | NURSING ---
MED SURG KORAM PANCREATITIS
--- NOTE | 2020-12-30 09:37 | HP.PCM_ITS ---
History of Present Illness Date of Admission: 12/30/20 Chief Complaint: abdominal and flank pain The patient is a 55 year old M with an extensive PMH as outlined who was admitted via the ED on 12/30/2020 with a complaint of abdominal pain and flank pain which started about 2 days prior to admission. Patient has a history of acute pancreatitis which was thought to be due to gallstones and cellulitis gallstones removed. He states pain was mainly in his epigastrium and radiated to his right flank and also to his back. He had no aggravating or relieving factors though he states he had some fatty food recently at [employer] and also drank a few beers. He thinks he drank more beer than he should have. He adm itted to nausea but denied any vomiting, fever or chills, chest pain diarrhea vomiting. Review of systems otherwise negative. In the ED, vitals were stable and he was saturating 100% on room air. Chemistry was largely unremarkable though lipase was 1149. CBC showed WBC of 11.7 and hemoglobin of 13.7 and platelets of 200. CT of the abdomen and pelvis showed profound diffuse hepatic steatosis which was unchanged from previous imaging as well as equivocal intramural thickening in the horizontal portion of the duodenum which was unchanged compared to previous imaging and no evidence of kidney or ureteral or bladder stones. Pancreas was unremarkable per CT scan. He has been admitted to be managed for acute pancreatitis based on medical findings as well as elevated lipase. 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909 Type 2 diabetes mellitus E11.9 Acute pancreatitis K85.90 Allergies lisinopril Allergy (Verified 12/30/20 07:13) Angioedema cyclobenzaprine Adverse Reaction (Severe, Verified 12/30/20 07:13) Skin crawling hydrocodone bitartrate [From Vicodin] Adverse Reaction (Verified 12/30/20 07:13) Itching morphine Adverse Reaction (Verified 12/30/20 07:13) Itching tramadol Adverse Reaction (Verified 12/30/20 07:13) Itching Home Medications: Ambulatory Orders Medication Instructions Recorded Nitroglycerin (INPATIENT USE) 0.4 mg SUBLINGUAL Q5M PRN 07/15/13 [Nitrostat] metFORMIN HCl [Glucophage] 500 mg PO BID 11/28/13 Loratadine 10 mg PO DAILY 06/01/17 amitriptyline 25 mg tablet 25 mg PO DAILY 07/03/18 Cholecalciferol (Vitamin D3) 1 cap PO DAILY 11/09/18 [Vitamin D3] aspirin 81 mg chewable tablet 81 mg PO DAILY@0800 #30 tab 04/09/20 magnesium oxide 400 mg (241.3 mg 400 mg PO BID #60 tab 04/09/20 magnesium) tablet hydrochlorothiazide 25 mg tablet 25 mg PO DAILY #30 tab 06/05/20 pantoprazole 40 mg tablet,delayed 40 mg PO DAILY #90 tab 07/03/20 release pravastatin 20 mg tablet 20 mg PO QHS 07/03/20 pravastatin 40 mg tablet 40 mg PO DAILY #30 tab 07/03/20 gabapentin 300 mg capsule 300 mg PO BID cap 10/06/20 levetiracetam 500 mg tablet 500 mg PO BID #60 tab 12/08/20 Amlodipine Besylate [Norvasc] 5 mg PO DAILY 12/30/20 Ciprofloxacin HCl 500 mg PO BID 12/30/20 Insulin Glargine,Hum.rec.anlog 10 unit SQ QHS 12/30/20 [Lantus] Losartan Potassium [Cozaar] 25 mg PO DAILY 12/30/20 Surgical History: Surgical History (Last Reviewed 12/08/20 @ 15:44 by Lu Wilkins) History of cholecystectomy Onset Date: 12/2013 Z90.49 History of left heart catheterization Onset Date: 10/31/11 Z98.890 Surgical History: cholecystectomy Psychiatric History: Anxiety, Depression, Post traumatic stress Lives: With Family Smoking Status: Former smoker - *Family History Maternal Family History: Family History (Last Reviewed 12/08/20 @ 15:44 by Lu Wilkins) Mother Heart disease Sister Cerebral aneurysm History Items: Diabetes, Heart Disease Paternal Family History: Family History (Last Reviewed 12/08/20 @ 15:44 by Lu Wilkins) Mother Heart disease Sister Cerebral aneurysm History Items: Cancer, Diabetes, Heart Disease Sibling Family History: Family History (Last Reviewed 12/08/20 @ 15:44 by Lu Wilkins) Mother Heart disease Sister Cerebral aneurysm History Items: Cancer - Sister with breast cancer, brother with prostate cancer Review of Systems Constitutional: Denies: Chills, Fever, Weight Change HEENT: Denies: Head Aches, Sinus Congestion, Sinus Drainage Cardiovascular: Denies: Chest Pain, Palpitations Respiratory: Denies: Cough, Shortness of breath at rest, Sputum production Gastrointestinal: Reports: Abdominal Pain, Nausea. Denies: Vomiting Genitourinary: Denies: Dysuria Musculoskeletal: Denies: Joint Pain, Joint Tenderness Skin: Denies: Rash, Wounds Neurological: Denies: Numbness, Tingling, Focal weakness Psychiatric: Denies: Anxiety, Depression, Homicidal Ideations, Suicidal Ideations Hematologic/ Lymphatic: Denies: Easy Bruising, Easy Bleeding VTE Information - Inpt Only VTE Present on Admission: No VTE Pharm Prophylaxis ordered?: Yes Patient Problems: Active and Suspected Problems (Last Reviewed 12/08/20 @ 15:44 by Lu Wilkins) Pancreatitis (Acute) - Physical Exam Vitals/I&O's: Vital Signs Temp Pulse Resp BP Pulse Ox 98.1 F 90 16 162/107 H 98 12/30/20 09:32 12/30/20 09:32 12/30/20 09:32 12/30/20 09:32 12/30/20 09:32 Oxygen Delivery Method Room Air Weight: 200 lb 13.458 oz Body Mass Index (BMI) 28.8 Finger Stick Blood Glucose 152 General: Alert, Oriented x3, Cooperative HEENT: Atraumatic, PERRLA, EOMI, Normocephalic Neck: Supple, No JVD, Negative Carotid Bruits Lungs: Clear to auscultation, Normal air movement Cardiovascular: Regular rate, Regular Rhythm, Normal S1, Normal S2, No murmurs Abdomen: Bowel Sounds Present, Soft, - - minimal epigastric tenderness, no guarding or rebound tenderness. No CVA tenderness. Extremities: No edema, Capillary Refill Less than 3 Seconds Skin: No rashes, No breakdown Musculoskeletal: No Tenderness to Palpation of Joints or Extremities Neurological: Cranial nerves II-XII grossly intact Psych/Mental Status: Normal Affect, Appropriate, Alert and oriented to time, place, person, mood and affect Laboratory Results 12/30/20 07:42: WBC 11.7 H, RBC 4.39 L, Hgb 13.7, Hct 41.4, MCV 94.3 H, MCH 31.2, MCHC 33.1, RDW Std Deviation 43.5, RDW Coeff of Armin 12.5, Plt Count 200, MPV 9.7, Immature Gran % (Auto) 0.300, Neut % (Auto) 77.2 H, Lymph % (Auto) 12.2 L, Thomas % (Auto) 9.1, Eos % (Auto) 0.9, Baso % (Auto) 0.3, Absolute Neuts (auto) 9.0 H, Absolute Lymphs (auto) 1.43, Nucleated RBC % 0 12/30/20 07:42: Sodium 136, Potassium 3.6, Chloride 105, Carbon Dioxide 28.0, Anion Gap 3 L, BUN 11, Creatinine 1.15, Estim Creat Clear Calc 74.94, Est GFR (MDRD) Af Amer 85, Est GFR (MDRD) Non-Af 70, BUN/Creatinine Ratio 9.6 L, Glucose 177 H, Calcium 8.9, Total Bilirubin 1.00, Direct Bilirubin 0.31 H, AST 22, ALT 44, Alkaline Phosphatase 75, Total Protein 8.2, Albumin 4.2, Globulin 4.0, Lipase 1149 H Diagnostic Data Abdomen/Pelvis CT 12/30/20 07:32 IMPRESSION: 1. Equivocal intramural thickening in the horizontal portion of the duodenum (series 2, images 69-74). This is not confirmed in the sagittal view. This is unchanged when compared to 04/30/2020. Endoscopy may help clarify if clinically warranted. 2. No CT evidence of stones in the kidneys, ureters and urinary bladder. 3. Pronounced diffuse hepatic steatosis is unchanged. Electronically Signed: Alejandro Jauregui MD at 8:16 EDT , Service support , Assessment/Plan All Active Problems (Last Reviewed 12/08/20 @ 15:44 by Lu Wilkins) Pancreatitis (Acute) 55 y/o admitted with a complaint of abdominal and flank pain #Acute pancreatitis * likely due to alcohol use * admit to Med surg * Lipase was over 1100 * Keep NPO. Hydrate with IV fluids. IV morphine as needed for pain. * Will start on clear liquids once pain improves and advance as tolerated. * Will check lipid panel as well. * #Type 2 diabetes mellitus: Hold oral medication and insulin. Insulin sliding scale. Accu-Cheks every 6 hourly since he is n.p.o. #GERD: on pantoprazole #Hypertension: On amlodipine and losartan. Will continue. Also on h ydrochlorothiazide. #Anxiety and depression: #Seizure disorder: On Keppra #Alcohol use disorder; patient admits to drinking more than he usually drinks though he says he does not drink daily. Counseled to quit. DVT prophylaxis: Lovenox CODE STATUS: Full code * Patient counseled extensively about different types of CODE STATUS including full code, DNR CCA and DNR CCA. * Patient elects to be full code. * Total [id number] time 17 minutes. OBSV E&M: 28734 Initial observation care L3 Procedures: 73256 Advncd Care Plan 30 Min
[2020-12-30] MEDS: DiphenhydrAMINE 25 MG Capsule 50 MG PO (09:49)
--- NOTE | 2020-12-30 11:33 | NURSING ---
spoke with Iesha in MRI regarding pt reports he is to have outpt MRI of his head/brain tomorrow 12/31/2020 at around 1100. Iesha states is aware pt is not admitted and pt will need to call MRI scheduling at discharge to reschedule his MRI. Phone number of scheduling department provided to pt so he can call and reschedule his MRI.
[2020-12-30] MEDS: 0.9% Normal Saline 1,000 ML 150 ML IV ×2 (11:53→18:27)
[2020-12-30] MEDS: Morphine 2 MG/ML Syringe IV ×2 (11:55→16:12)
[2020-12-30] MEDS: DiphenhydrAMINE 50 MG/ML Syringe 25 MG IV ×2 (11:55→18:26)
[2020-12-30] MEDS: 0.9% Saline Lock 10 ML Syringe IV ×4 (11:57→19:19)
[2020-12-30] MEDS: proMETHazine 25 MG/ML Syringe 6.25 MG IM (11:57)
[2020-12-30] MEDS: Magnesium Chloride 64 MG Delay Rel.Tablet 128 MG PO ×2 (11:58→22:15)
[2020-12-30] MEDS: Gabapentin 300 MG Capsule PO ×2 (11:58→16:13)
[2020-12-30] MEDS: Acetaminophen 325 MG Tablet 650 MG PO (11:59)
[2020-12-30] MEDS: levETIRAcetam 500 MG Tablet PO ×2 (11:59→22:15)
[2020-12-30] MEDS: Pantoprazole Sodium 40 MG Tablet PO (13:26)
[2020-12-30] MEDS: hydroCHLOROthiazide 25 MG Tablet PO (13:26)
[2020-12-30] MEDS: amLODIPine 5 MG Tablet PO (13:27)
[2020-12-30] MEDS: Losartan Potassium 25 MG Tablet PO (13:27)
[2020-12-30] MEDS: Loratadine 10 MG Tablet PO (13:27)
[2020-12-30 17:12] LABS: Cholesterol 154 mg/dL (200); High Density Lipoprotein 61 mg/dL; Triglycerides 149 mg/dL; Very Low Density Lipoprotein 30 mg/dL (5-40)
[2020-12-30] MEDS: Morphine 4 MG/ML Syringe IV ×2 (19:19→23:14)
[2020-12-30] MEDS: Pravastatin 40 MG Tablet PO (22:16)
[2020-12-30] MEDS: Amitriptyline 25 MG Tablet PO (22:17)
[2020-12-30] MEDS: Pravastatin 20 MG Tablet PO (22:18)
[2020-12-31] MEDS: 0.9% Normal Saline 1,000 ML 150 ML IV (01:15)
[2020-12-31 04:00] VITALS: PULSE 92
[2020-12-31 04:47] VITALS: BP 138/90; PULSE 92; RESP 16; TEMP 36.9; O2SAT 100
[2020-12-31 06:37] LABS: Absolute Neutrophil Count 9.1 X10^3/uL (2.0-7.7); Basophil# 0.03 X10^3/uL; Basophil% 0.3 % (0-1); Eosinophil# 0.14 X10^3/uL; Eosinophils% 1.2 % (0-5); Hematocrit 41.9 % (40-54); Hemoglobin 13.8 g/dL (13.0-16.5); Mean Corp Hgb Conc 32.9 g/dL (32-36); Mean Corpuscular Hgb 31.3 pg (27.0-32.0); Mean Platelet Vol. 9.3 fl (6.2-12.0); Monocyte# 0.89 X10^3/uL; Monocyte% 7.7 % (0-10); NRBC Flagged by Analyzer 0 % (0-5); Neutrophil # 9.12 X10^3/uL (2.7-7.7); Neutrophil % 78.4 % (47-70); Platelet Count 163 K/mm3 (150-450); RBC Distribution Width CV 12.4 % (11.6-14.6); RBC Distribution Width SD 43.2 fl (35.1-43.9); Red Blood Count 4.41 M/mm3 (4.6-6.2); White Blood Count 11.6 K/mm3 (4.4-11.0)
[2020-12-31 06:57] LABS: Anion Gap 4 (5-15); BUN 7 mg/dL (7-18); BUN/Creat Ratio 7.6 RATIO (10-20); Calcium,Total 8.6 mg/dL (8.5-10.1); Chloride 105 mmol/L (98-107); Creatinine, Serum 0.92 mg/dL (0.70-1.30); EST Glomerular Filtration Rate 91 mL/min (>60); Est Glom Filt Rate - Afr Amer 110 mL/min (>60); Estimated Creatinine Clearance 93.67 ml/min; Glucose 131 mg/dL (74-106); Potassium 3.5 mmol/L (3.5-5.1); Sodium Level 135 mmol/L (136-145)
[2020-12-31] MEDS: Morphine 4 MG/ML Syringe IV (07:29)
[2020-12-31] MEDS: DiphenhydrAMINE 50 MG/ML Syringe 25 MG IV ×2 (07:29→16:42)
[2020-12-31] MEDS: Gabapentin 300 MG Capsule PO ×2 (08:36→17:19)
[2020-12-31] MEDS: 0.9% Saline Lock 10 ML Syringe IV ×2 (08:37→16:42)
[2020-12-31 08:40] VITALS: PULSE 104
[2020-12-31] MEDS: Cholecalciferol (VIT D3) 25 MCG TABLET (1,000 UNITS) 125 MCG PO (10:29)
[2020-12-31 10:30] VITALS: BP 118/86; PULSE 108; RESP 18; TEMP 36.7; O2SAT 96
[2020-12-31] MEDS: Pantoprazole Sodium 40 MG Tablet PO (10:30)
[2020-12-31] MEDS: Magnesium Chloride 64 MG Delay Rel.Tablet 128 MG PO ×2 (10:30→21:16)
[2020-12-31] MEDS: hydroCHLOROthiazide 25 MG Tablet PO (10:30)
[2020-12-31] MEDS: Loratadine 10 MG Tablet PO (10:30)
[2020-12-31] MEDS: Losartan Potassium 25 MG Tablet PO (10:30)
[2020-12-31] MEDS: levETIRAcetam 500 MG Tablet PO ×2 (10:30→21:15)
[2020-12-31] MEDS: amLODIPine 5 MG Tablet PO (10:30)
--- NOTE | 2020-12-31 11:20 | PN_ITS ---
Patient Problems: Active and Suspected Problems (Last Reviewed 12/08/20 @ 15:44 by Lu Wilkins) Pancreatitis (Acute) Subjective: Patient seen and examined. HE still has abdominal pain, but rates it at 3/10. He also complains of itching in his lower extremities, which he says is due to neuropathy. Review of systems is otherwise negative. He has remained hemodynamically stable. Vitals/I&O's: Vital Signs Temp Pulse Resp BP Pulse Ox 98.1 F 108 H 18 118/86 H 96 12/31/20 10:30 12/31/20 10:30 12/31/20 10:30 12/31/20 10:30 12/31/20 10:30 Oxygen Delivery Method Room Air Weight: 196 lb 6.91 oz Body Mass Index (BMI) 28.1 Finger Stick Blood Glucose 152 Intake and Output for Last 24 Hours 12/29/20 12/30/20 12/31/20 23:59 23:59 23:59 Intake Total 1135 / 1135 1999 Output Total 600 / 600 Balance 535 / 535 1999 General: Alert, Oriented x3, Cooperative HEENT: Atraumatic, PERRLA, EOMI, Normocephalic Neck: Supple, No JVD, Negative Carotid Bruits Lungs: Clear to auscultation, Normal air movement Cardiovascular: Regular rate, Regular Rhythm, Normal S1, Normal S2, No murmurs Abdomen: Bowel Sounds Present, Soft, - no tenderness Extremities: No edema, Capillary Refill Less than 3 Seconds Skin: No rashes, No breakdown Musculoskeletal: No Tenderness to Palpation of Joints or Extremities Neurological: Cranial nerves II-XII grossly intact Psych/Mental Status: Normal Affect, Appropriate, Alert and oriented to time, place, person, mood and affect Laboratory Results 12/30/20 07:42: Triglycerides 149, Cholesterol 154, LDL Cholesterol 63, VLDL Cholesterol 30, HDL Cholesterol 61 12/31/20 06:30: WBC 11.6 H, RBC 4.41 L, Hgb 13.8, Hct 41.9, MCV 95.0 H, MCH 31.3, MCHC 32.9, RDW Std Deviation 43.2, RDW Coeff of Armin 12.4, Plt Count 163, MPV 9.3, Immature Gran % (Auto) 0.400, Neut % (Auto) 78.4 H, Lymph % (Auto) 12.0 L, [place] % (Auto) 7.7, Eos % (Auto) 1.2, Baso % (Auto) 0.3, Absolute Neuts (auto) 9.1 H, Absolute Lymphs (auto) 1.40, Nucleated RBC % 0 12/31/20 06:30: Sodium 135 L, Potassium 3.5, Chloride 105, Carbon Dioxide 26.0, Anion Gap 4 L, BUN 7, Creatinine 0.92, Estim Creat Clear Calc 93.67, Est GFR (MDRD) Af Amer 110, Est GFR (MDRD) Non-Af 91, BUN/Creatinine Ratio 7.6 L, Glucose 131 H, Calcium 8.6 Current Medications Acetaminophen (Acetaminophen 325 Mg Tablet) 650 mg PO Q6H PRN PRN PRN Reason: Pain Score 1-10/Temp > 100.7 F Last Admin: 12/30/20 11:59 Dose: 650 mg Documented by: Amitriptyline HCl (Amitriptyline 25 Mg Tablet) 25 mg PO QHS [facility] Last Admin: 12/30/20 22:17 Dose: 25 mg Documented by: Amlodipine Besylate (Amlodipine 5 Mg Tablet) 5 mg PO DAILY [facility] Last Admin: 12/31/20 10:30 Dose: 5 mg Documented by: Cholecalciferol (Cholecalciferol (Vit D3) 25 Mcg Tablet (1,000 Units)) 125 mcg PO DAILY [facility] Last Admin: 12/31/20 10:29 Dose: 125 mcg Documented by: Diphenhydramine HCl (Diphenhydramine 50 Mg/Ml Syringe) 25 mg IV Q6H PRN PRN PRN Reason: ITCHING Last Admin: 12/31/20 07:29 Dose: 25 mg Documented by: Gabapentin (Gabapentin 300 Mg Capsule) 300 mg PO BIDCM [facility] Last Admin: 12/31/20 08:36 Dose: 300 mg Documented by: Hydrochlorothiazide (Hydrochlorothiazide 25 Mg Tablet) 25 mg PO DAILY [facility] Last Admin: 12/31/20 10:30 Dose: 25 mg Documented by: Sodium Chloride () 250 mls @ 15 mls/hr IV .[id number] PRN PRN Reason: Saline Flush Sodium Chloride () 250 mls @ 15 mls/hr IV .[id number] PRN PRN Reason: Additional IVPB Infusion Levetiracetam (Levetiracetam 500 Mg Tablet) 500 mg PO BID [facility] Last Admin: 12/31/20 10:30 Dose: 500 mg Documented by: Loratadine (Loratadine 10 Mg Tablet) 10 mg PO DAILY [facility] Last Admin: 12/31/20 10:30 Dose: 10 mg Documented by: Losartan Potassium (Losartan Potassium 25 Mg Tablet) 25 mg PO DAILY [facility] Last Admin: 12/31/20 10:30 Dose: 25 mg Documented by: Magnesium Chloride (Magnesium Chloride 64 Mg Delay Rel.Tablet) 128 mg PO BID [facility] Last Admin: 12/31/20 10:30 Dose: 128 mg Documented by: Morphine Sulfate (Morphine 4 Mg/Ml Syringe) 4 mg IV Q3H PRN PRN PRN Reason: Pain Score 6-10 Last Admin: 12/31/20 07:29 Dose: 4 mg Documented by: Nitroglycerin (Nitroglycerin (Inpatient Use) 0.4 Mg Tab.Subl) 0.4 mg SL Q5M PRN PRN Reason: .CHEST PAIN Ondansetron HCl (Ondansetron 4 Mg/2 Ml Vial) 4 mg IV Q8H PRN PRN PRN Reason: NAUSEA/VOMITING Last Admin: 12/30/20 16:12 Dose: 4 mg Documented by: Oxycodone HCl (Oxycodone 5 Mg Tablet) 10 mg PO Q4H PRN PRN PRN Reason: Pain Score 4-5 Pantoprazole Sodium (Pantoprazole Sodium 40 Mg Tablet) 40 mg PO DAILY [facility] Last Admin: 12/31/20 10:30 Dose: 40 mg Documented by: Pravastatin Sodium (Pravastatin 20 Mg Tablet) 20 mg PO QHS [facility] Last Admin: 12/30/20 22:18 Dose: 20 mg Documented by: Pravastatin Sodium (Pravastatin 40 Mg Tablet) 40 mg PO QHS [facility] Last Admin: 12/30/20 22:16 Dose: 40 mg Documented by: Promethazine HCl (Promethazine 25 Mg/Ml Syringe) 6.25 mg IM Q6H PRN PRN PRN Reason: NAUSEA/VOMITING Last Admin: 12/30/20 11:57 Dose: 6.25 mg Documented by: Sodium Chloride (0.9% Saline Lock 10 Ml Syringe) 10 - 40 ml IV UD PRN PRN Reason: SALINE FLUSH Last Admin: 12/31/20 08:37 Dose: 10 ml Documented by: STROKE Vital Signs/Narrative: Vital Signs Temp Pulse Resp BP Pulse Ox 12/31/20 10:30 98.1 F 108 H 18 118/86 H 96 12/31/20 08:40 104 H Medical Necessity - Tobacco Use Smoking Status: Former smoker Assessment/Plan All Active Problems (Last Reviewed 12/08/20 @ 15:44 by Lu Wilkins) Pancreatitis (Acute) 55 y/o admitted with a complaint of abdominal and flank pain #Acute pancreatitis * likely due to alcohol use * abdominal pain is much better * will start on full liquid diet, and advance as tolerated * lipid panel was WNL. * continue IV morphine and tylenol prn for pain * * #Type 2 diabetes mellitus: * Hold oral medication and insulin. Insulin sliding scale. * accuchecks ACHS #Hyperlipidemia: on statin #GERD: on pantoprazole #Hypertension: On amlodipine and losartan as well as HCTZ #Anxiety and depression:stable. #Seizure disorder: On Keppra #Alcohol use disorder; counseled to quit. DVT prophylaxis: Lovenox CODE STATUS: Full code * OBSV E&M: 70019 Subsequent observation care L2
[2020-12-31 14:33] VITALS: BP 141/101; PULSE 105; RESP 16; TEMP 36.9; O2SAT 93
[2020-12-31] MEDS: oxyCODONE 5 MG Tablet 10 MG PO (14:38)
--- NOTE | 2020-12-31 15:09 | CASEMGMT ---
Social Work Note SW reviewed chart, pt with Pancreatitis and ETOH use. SW in to speak with pt. SW introduced self and role at [facility]. Pt is alert and orientated. Pt is able to state that he is aware his recent ETOH use and food has caused him his abdominal pain. Pt states he went to [facility]. Pt denied having any problems with ETOH and denied wanting any resources for ETOH. Pt states I have all of that paperwork at home. Pt asked about LW. SW informed pt that this worker can provide pt with HCPOA and LW to complete and pt denied. Pt states I have the paperwork at home, I just need to do it and turn it in. SW explained to pt that two people not related to pt or a notary will need to sign the documents and then documents will become a legal document. SW informed pt that he can bring documents to [facility]. Pt states understanding, denied additional needs or concerns at this time. Carmel Trujillo [employer], TRANSFER MAN
[2020-12-31 19:38] VITALS: BP 132/97; PULSE 84; RESP 16; TEMP 36.9; O2SAT 97
[2020-12-31] MEDS: Pravastatin 20 MG Tablet PO (21:15)
[2020-12-31] MEDS: Amitriptyline 25 MG Tablet PO (21:15)
[2020-12-31] MEDS: Pravastatin 40 MG Tablet PO (21:15)
[2020-12-31 21:26] LABS: Bedside Glucose 148 mg/dL (70-110)
[2021-01-01 02:27] VITALS: BP 117/95; PULSE 98; RESP 16; TEMP 36.9; O2SAT 95
[2021-01-01] MEDS: Gabapentin 300 MG Capsule PO (06:55)
[2021-01-01 07:01] LABS: Bedside Glucose 129 mg/dL (70-110)
[2021-01-01] MEDS: Acetaminophen 325 MG Tablet 650 MG PO (09:01)
[2021-01-01] MEDS: Cholecalciferol (VIT D3) 25 MCG TABLET (1,000 UNITS) 125 MCG PO (09:01)
[2021-01-01] MEDS: Magnesium Chloride 64 MG Delay Rel.Tablet 128 MG PO (09:02)
[2021-01-01] MEDS: hydroCHLOROthiazide 25 MG Tablet PO (09:02)
[2021-01-01] MEDS: levETIRAcetam 500 MG Tablet PO (09:03)
[2021-01-01] MEDS: Losartan Potassium 25 MG Tablet PO (09:03)
[2021-01-01] MEDS: Loratadine 10 MG Tablet PO (09:03)
[2021-01-01] MEDS: amLODIPine 5 MG Tablet PO (09:03)
[2021-01-01] MEDS: Pantoprazole Sodium 40 MG Tablet PO (09:03)
--- NOTE | 2021-01-01 09:05 | CASEMGMT ---
RN SAMUEL NOTE: Intro role of CM to patient and [facility] form explained re: Observation status for treatment of acute pancreatitis. Explained hospitalization will be paid per insurance policy for Outpatient billing and condition will continue to be evaluated for Inpt necessity. Also let pt know that [facility] sends paper in the billing packet with their phone number if questions arise. Discussed Pharmacy section of [facility] form and self administered medication guideline. Pt verbalizes understanding and does not have further questions. Form signed, copy made and placed in chart, and original given to pt. Humza SUN RN CM
[2021-01-01 09:11] VITALS: BP 141/108; PULSE 108; RESP 18; TEMP 36.7; O2SAT 95
[2021-01-01] MEDS: Bisacodyl 5 MG Tablet PO (10:20)
--- NOTE | 2021-01-01 11:50 | PCM.DC ---
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) Essential (primary) hypertension (Chronic) Hyperlipidemia (Chronic) You will use the following diet at home:: Cardiac Your food should be the consistency of: Regular Your liquids should be the consistency of: Regular/Thin Discharge Activity: Return to Normal Activity Weight Bearing Status: Weight bearing as tolerated Call your doctor if you observe: Shortness of breath, Dizziness, Uncontrolled pain, - - abdominal pain Instructions: ED Pancreatitis Allergies/Adverse Reactions: Allergies lisinopril Allergy (Verified 12/30/20 07:13) Angioedema cyclobenzaprine Adverse Reaction (Severe, Verified 12/30/20 07:13) Skin crawling hydrocodone bitartrate [From Vicodin] Adverse Reaction (Verified 12/30/20 07:13) Itching morphine Adverse Reaction (Verified 12/30/20 07:13) Itching tramadol Adverse Reaction (Verified 12/30/20 07:13) Itching Medications to take at Discharge Nitroglycerin (INPATIENT USE) [Nitrostat] 0.4 mg SUBLINGUAL Q5M PRN 07/15/13 metFORMIN HCl [Glucophage] 500 mg PO BID 11/28/13 Loratadine 10 mg PO DAILY 06/01/17 amitriptyline 25 mg tablet 25 mg PO DAILY 07/03/18 Cholecalciferol (Vitamin D3) [Vitamin D3] 1 cap PO DAILY 11/09/18 aspirin 81 mg chewable tablet 81 mg PO DAILY@0800 #30 tab 04/09/20 magnesium oxide 400 mg (241.3 mg magnesium) tablet 400 mg PO BID #60 tab 04/09/20 hydrochlorothiazide 25 mg tablet 25 mg PO DAILY #30 tab 06/05/20 pantoprazole 40 mg tablet,delayed release 40 mg PO DAILY #90 tab 07/03/20 pravastatin 20 mg tablet 20 mg PO QHS 07/03/20 pravastatin 40 mg tablet 40 mg PO DAILY #30 tab 07/03/20 gabapentin 300 mg capsule 300 mg PO BID cap 10/06/20 levetiracetam 500 mg tablet 500 mg PO BID #60 tab 12/08/20 Amlodipine Besylate [Norvasc] 5 mg PO DAILY 12/30/20 Insulin Glargine,Hum.rec.anlog [Lantus] 10 unit SQ QHS 12/30/20 Losartan Potassium [Cozaar] 25 mg PO DAILY 12/30/20 Acetaminophen [Tylenol Tablet] 650 mg PO Q6H PRN PRN #30 tablet 01/01/21 The following prescriptions were given: Acetaminophen [Tylenol Tablet] 650 mg PO Q6H PRN PRN #30 tablet PRN Reason: Pain Score 1-10/Temp > 100.7 F Transmission Status: Pending to [facility] Primary Care Physician: Souleymane Kelly NP, HOSPICE SPIRITUAL CARE COORDINATOR-C [Primary Care Provider] - Please follow up with your Primary Care Physician in: 1-2 weeks Test Results: Test results from this visit will be discussed in further detail at your follow-up appointment, if applicable. Proposed Discharge Date: 01/01/21
--- NOTE | 2021-01-01 11:51 | DS.PCM_ITS ---
Discharge Date and Diagnosis - Problem List Patient Problems: Active and Suspected Problems (Last Reviewed 12/08/20 @ 15:44 by Lu Wilkins) Pancreatitis (Acute) Date of Admission: 12/30/20 Date of Discharge: 01/01/21 - Primary Discharge Diagnosis Acute Problems: Active Problems (Last Reviewed 12/08/20 @ 15:44 by Lu Wilkins) Pancreatitis (Acute) - Secondary Discharge Diagnosis Chronic Problems: Chronic Problems (Last Reviewed 12/08/20 @ 15:44 by Lu Wilkins) Diabetes (Chronic) GERD (gastroesophageal reflux disease) (Chronic) Family history of cerebral aneurysm (Chronic) Cerebrovascular disease (Chronic) Polyneuropathy (Chronic) Other generalized epilepsy and epileptic syndromes, not intractable, 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 Equivocal intramural thickening in the horizontal portion of the duodenum (series 2, images 69-74). This is not confirmed in the sagittal view. This is unchanged when compared to 04/30/2020. Endoscopy may help clarify if clinically warranted. 2. No CT evidence of stones in the kidneys, ureters and urinary bladder. 3. Pronounced diffuse hepatic steatosis is unchanged. Electronically Signed: Alejandro Jauregui MD at 8:16 EDT , Service support , Operations: None Procedures: None Summary of Care Provided: The patient is a 55 year old M with an extensive PMH as outlined who was admitted via the ED on 12/30/2020 with a complaint of abdominal pain and flank pain which started about 2 days prior to admission. Patient has a history of acute pancreatitis which was thought to be due to gallstones and cellulitis gallstones removed. He states pain was mainly in his epigastrium and radiated to his right flank and also to his back. He had no aggravating or relieving factors though he states he had some fatty food recently at [employer] and also drank a few beers. He thinks he drank more beer than he should have. He admitted to nausea but denied any vomiting, fever or chills, chest pain diarrhea vomiting. Review of systems otherwise negative. In the ED, vitals were stable and he was saturating 100% on room air. Chemistry was largely unremarkable though lipase was 1149. CBC showed WBC of 11.7 and hemoglobin of 13.7 and platelets of 200. CT of the abdomen and pelvis showed profound diffuse hepatic steatosis which was unchanged from previous imaging as well as equivocal intramural thickening in the horizontal portion of the duodenum which was unchanged compared to previous imaging and no evidence of kidney or ureteral or bladder stones. Pancreas was unremarkable per CT scan. He was admitted to be managed for acute pancreatitis based on clinical findings as well as elevated lipase. He was initially kept n.p.o. and hydrated with IV fluids. Was also given IV pain medication to help with the pain. Pain subsequently improved and he was started on full liquid diet which was advanced through regular diet which he tolerated very well. Pain resolved and he remained stable. He was discharged on 01/01/2021. He is to follow-up with his primary care doctor and patient was counseled to quit drinking. Patient seen and examined prior to discharge. He had no complaints. Review of signs otherwise negative. Labs and vitals reviewed. Home medication reviewed and reconciled. O/E: Vital Signs Temp Pulse Resp BP Pulse Ox 98.2 F 98 18 148/102 H 96 01/01/21 13:45 01/01/21 13:45 01/01/21 13:45 01/01/21 13:45 01/01/21 13:45 General: Alert, Oriented x3, Cooperative HEENT: Atraumatic, PERRLA, EOMI, Normocephalic Neck: Supple, No JVD, Negative Carotid Bruits Lungs: Clear to auscultation, Normal air movement Cardiovascular: Regular rate, Regular Rhythm, Normal S1, Normal S2, No murmurs Abdomen: Bowel Sounds Present, Soft, - no tenderness Extremities: No edema, Capillary Refill Less than 3 Seconds Skin: No rashes, No breakdown Musculoskeletal: No Tenderness to Palpation of Joints or Extremities Neurological: Cranial nerves II-XII grossly intact Psych/Mental Status: Normal Affect, Appropriate, Alert and oriented to time, place, person, mood and affect Plan is for discharge home today. Patient Problems: Active and Suspected Problems (Last Reviewed 12/08/20 @ 15:44 by Lu Wilkins) Pancreatitis (Acute) - Physical Exam Vitals/I&O's: Vital Signs Temp Pulse Resp BP Pulse Ox 98.0 F 108 H 18 141/108 H 95 01/01/21 09:11 01/01/21 09:11 01/01/21 09:11 01/01/21 09:11 01/01/21 09:11 Oxygen Delivery Method Room Air Weight: 196 lb 6.91 oz Body Mass Index (BMI) 28.1 Finger Stick Blood Glucose 152 Intake and Output for Last 24 Hours 12/30/20 12/31/20 01/01/21 23:59 23:59 23:59 Intake Total 1135 / 1135 2690 / 2690 Output Total 600 / 600 Balance 535 / 535 2690 / 2690 Laboratory Results 12/31/20 21:20: POC Glucose 148 H 01/01/21 06:51: POC Glucose 129 H Current Medications Acetaminophen (Acetaminophen 325 Mg Tablet) 650 mg PO Q6H PRN PRN PRN Reason: Pain Score 1-10/Temp > 100.7 F Last Admin: 01/01/21 09:01 Dose: 650 mg Documented by: Amitriptyline HCl (Amitriptyline 25 Mg Tablet) 25 mg PO QHS [facility] Last Admin: 12/31/20 21:15 Dose: 25 mg Documented by: Amlodipine Besylate (Amlodipine 5 Mg Tablet) 5 mg PO DAILY [facility] Last Admin: 01/01/21 09:03 Dose: 5 mg Documented by: Cholecalciferol (Cholecalciferol (Vit D3) 25 Mcg Tablet (1,000 Units)) 125 mcg PO DAILY [facility] Last Admin: 01/01/21 09:01 Dose: 125 mcg Documented by: Dextrose (Dextrose 50%-Water 25 Gm/50 Ml Disp.Syrin) 0 gm IV X1 PRN; Protocol PRN Reason: Hypoglycemia Diphenhydramine HCl (Diphenhydramine 50 Mg/Ml Syringe) 25 mg IV Q6H PRN PRN PRN Reason: ITCHING Last Admin: 12/31/20 16:42 Dose: 25 mg Documented by: Gabapentin (Gabapentin 300 Mg Capsule) 300 mg PO BIDCM [facility] Last Admin: 01/01/21 06:55 Dose: 300 mg Documented by: Glucagon (Glucagon 1 Mg/Ml Syringe) 1 mg IM .X1 PRN PRN Reason: Hypoglycemia Hydrochlorothiazide (Hydrochlorothiazide 25 Mg Tablet) 25 mg PO DAILY [facility] Last Admin: 01/01/21 09:02 Dose: 25 mg Documented by: Sodium Chloride () 250 mls @ 15 mls/hr IV .[id number] PRN PRN Reason: Saline Flush Sodium Chloride () 250 mls @ 15 mls/hr IV .[id number] PRN PRN Reason: Additional IVPB Infusion Insulin Human Lispro (Insulin Lispro 100 Unit/Ml Insuln.Pen) 0 unit SC ACHS [facility]; Protocol Last Admin: 01/01/21 06:53 Dose: Not Given Documented by: Levetiracetam (Levetiracetam 500 Mg Tablet) 500 mg PO BID [facility] Last Admin: 01/01/21 09:03 Dose: 500 mg Documented by: Loratadine (Loratadine 10 Mg Tablet) 10 mg PO DAILY [facility] Last Admin: 01/01/21 09:03 Dose: 10 mg Documented by: Losartan Potassium (Losartan Potassium 25 Mg Tablet) 25 mg PO DAILY [facility] Last Admin: 01/01/21 09:03 Dose: 25 mg Documented by: Magnesium Chloride (Magnesium Chloride 64 Mg Delay Rel.Tablet) 128 mg PO BID [facility] Last Admin: 01/01/21 09:02 Dose: 128 mg Documented by: Morphine Sulfate (Morphine 4 Mg/Ml Syringe) 4 mg IV Q3H PRN PRN PRN Reason: Pain Score 6-10 Last Admin: 12/31/20 07:29 Dose: 4 mg Documented by: Nitroglycerin (Nitroglycerin (Inpatient Use) 0.4 Mg Tab.Subl) 0.4 mg SL Q5M PRN PRN Reason: .CHEST PAIN Ondansetron HCl (Ondansetron 4 Mg/2 Ml Vial) 4 mg IV Q8H PRN PRN PRN Reason: NAUSEA/VOMITING Last Admin: 12/30/20 16:12 Dose: 4 mg Documented by: Oxycodone HCl (Oxycodone 5 Mg Tablet) 10 mg PO Q4H PRN PRN PRN Reason: Pain Score 4-5 Last Admin: 12/31/20 14:38 Dose: 10 mg Documented by: Pantoprazole Sodium (Pantoprazole Sodium 40 Mg Tablet) 40 mg PO DAILY [facility] Last Admin: 01/01/21 09:03 Dose: 40 mg Documented by: Pravastatin Sodium (Pravastatin 20 Mg Tablet) 20 mg PO QHS [facility] Last Admin: 12/31/20 21:15 Dose: 20 mg Documented by: Pravastatin Sodium (Pravastatin 40 Mg Tablet) 40 mg PO QHS [facility] Last Admin: 12/31/20 21:15 Dose: 40 mg Documented by: Promethazine HCl (Promethazine 25 Mg/Ml Syringe) 6.25 mg IM Q6H PRN PRN PRN Reason: NAUSEA/VOMITING Last Admin: 12/30/20 11:57 Dose: 6.25 mg Documented by: Sodium Chloride (0.9% Saline Lock 10 Ml Syringe) 10 - 40 ml IV UD PRN PRN Reason: SALINE FLUSH Last Admin: 12/31/20 16:42 Dose: 10 ml Documented by: Discharge Diet: Low fat/ Low Cholesterol Discharge Activity: Return to Normal Activity Weight Bearing Status: Weight bearing as tolerated Call your doctor if you observe: Shortness of breath, Dizziness, Uncontrolled pain, - - abdominal pain Home Medications: Medications to take at Discharge Nitroglycerin (INPATIENT USE) [Nitrostat] 0.4 mg SUBLINGUAL Q5M PRN 07/15/13 metFORMIN HCl [Glucophage] 500 mg PO BID 11/28/13 Loratadine 10 mg PO DAILY 06/01/17 amitriptyline 25 mg tablet 25 mg PO DAILY 07/03/18 Cholecalciferol (Vitamin D3) [Vitamin D3] 1 cap PO DAILY 11/09/18 aspirin 81 mg chewable tablet 81 mg PO DAILY@0800 #30 tab 04/09/20 magnesium oxide 400 mg (241.3 mg magnesium) tablet 400 mg PO BID #60 tab 04/09/20 hydrochlorothiazide 25 mg tablet 25 mg PO DAILY #30 tab 06/05/20 pantoprazole 40 mg tablet,delayed release 40 mg PO DAILY #90 tab 07/03/20 pravastatin 20 mg tablet 20 mg PO QHS 07/03/20 pravastatin 40 mg tablet 40 mg PO DAILY #30 tab 07/03/20 gabapentin 300 mg capsule 300 mg PO BID cap 10/06/20 levetiracetam 500 mg tablet 500 mg PO BID #60 tab 12/08/20 Amlodipine Besylate [Norvasc] 5 mg PO DAILY 12/30/20 Insulin Glargine,Hum.rec.anlog [Lantus] 10 unit SQ QHS 12/30/20 Losartan Potassium [Cozaar] 25 mg PO DAILY 12/30/20 Acetaminophen [Tylenol Tablet] 650 mg PO Q6H PRN PRN #30 tablet 01/01/21 Following Prescriptions Were Given to Patient: Acetaminophen [Tylenol Tablet] 650 mg PO Q6H PRN PRN #30 tablet PRN Reason: Pain Score 1-10/Temp > 100.7 F Transmission Status: Received by [facility] Primary Care Physician: Souleymane Kelly NP, EXPANDED FUNCTION DENTAL ASSISTANT-C [Primary Care Provider] - Please follow up with your Primary Care Physician in: 1-2 weeks Patient Instructions: ED Pancreatitis Disposition: Home Minutes spent on discharge:: 40 Patient Condition:: Stable Medical Necessity - Tobacco Use Smoking Status: Former smoker Meaningful Use Info Meaningful Use Diagnoses (Choose all that apply): None applicable OBSV E&M: 18979 Observation care discharge
[2021-01-01 12:00] LABS: Bedside Glucose 146 mg/dL (70-110)
[2021-01-01 13:45] VITALS: BP 148/102; PULSE 98; RESP 18; TEMP 36.8; O2SAT 96
== END 2021-01-01 14:17 | disposition home or self-care (01) ==
LOC: ED 09:28 → MS3 09:39
PROVIDERS: Admitting Provider Student in an Organized Health Care Education/Training Program; Emergency Provider Emergency Medicine; PCP Nurse Practitioner Family; Visit Provider Student in an Organized Health Care Education/Training Program
DX: K85.90 Acute pancreatitis without necrosis or infection, unspecified (principal); K21.9 Gastro-esophageal reflux disease without esophagitis; E11.42 Type 2 diabetes mellitus with diabetic polyneuropathy; E78.5 Hyperlipidemia, unspecified; I10 Essential (primary) hypertension; G40.409 Other generalized epilepsy and epileptic syndromes, not intractable, without status epilepticus; F41.9 Anxiety disorder, unspecified; F32.9 Major depressive disorder, single episode, unspecified; Z79.899 Other long term (current) drug therapy; Z79.4 Long term (current) use of insulin; Z79.82 Long term (current) use of aspirin; Z87.891 Personal history of nicotine dependence; K76.0 Fatty (change of) liver, not elsewhere classified
CPT/HCPCS: 74176; 80048; 80061; 80076; 82962; 83690; 85025; 96361; 96372; 96374; 96375; 96376; 99218; 99285; J7030; A4216; G0378; J2405

== ENCOUNTER → 2021-03-04 11:07 | Outpatient (CLI) | payer MEDICARE, MEDICAID, SELFPAY ==
[2020-12-30 10:40] VITALS: BMI 28.1
--- NOTE | 2021-03-04 11:08 | MRI_ITS ---
History: family hx of cerebral aneurysm EXAMINATION: MRA Head W/O Contrast TECHNIQUE: Routine [place] of [place]/brain 3D time of flight MR angiogram protocol was performed without gadolinium. 3D reconstructions were reviewed. IV Contrast dosage and agent: None. COMPARISON: None FINDINGS: --Anterior circulation: ICAs: No significant stenosis at the intracranial/visualized segments. ACAs: No significant stenosis at the visualized segments. ACOM: Present. MCAs: No significant stenosis at the visualized segments. --Posterior circulation: PCOMs: Right P-comm is present and normal in appearance. 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 BASILAR ARTERY: No significant stenosis. VERTEBRAL ARTERIES: No significant stenosis at the intradural/visualized segments. Left vertebral artery is dominant vessel extending to the basilar artery. No evidence of intracranial aneurysm or vascular malformation. MRI/MRA Head ONLY without Contrast IMPRESSION: Unremarkable MRA head. at 1657 Reported and signed by: Giovanni Zapata MD Electronically Signed: Giovanni Zapata MD at 16:56 EDT Tel , Service support ,
[2021-03-08 08:39] LABS: KEPPRA (LEVETIRACETAM) 14.1 ug/mL (10.0-40.0)
== END ==
PROVIDERS: PCP Nurse Practitioner Family; Referring Provider Nurse Practitioner Family; Visit Provider Nurse Practitioner Family
DX: G40.409 Other generalized epilepsy and epileptic syndromes, not intractable, without status epilepticus (principal); Z82.49 Family history of ischemic heart disease and other diseases of the circulatory system
CPT/HCPCS: 36415; 70544; 80177

== ENCOUNTER 2021-03-26 11:51 | Emergency (ER) | payer MEDICARE, MEDICAID, SELFPAY ==
[2020-12-30 10:40] VITALS: BMI 28.1
[2021-03-26 11:52] VITALS: BP 171/97; PULSE 112; RESP 16; TEMP 36.6; O2SAT 97; BMI 31.3
--- NOTE | 2021-03-26 12:13 | EDS_ITS ---
HPI History of Present Illness Chief Complaint: Head Injury Informant: patient Onset/Context/Timing Onset: Today Mechanism/Context: Incised Current Severity: Mild Maximum Severity: Mild Associated Symptoms Associated Symptoms: Negative for Parasthesias, Weakness, Loss of function, Inability to ambulate, Loss of consciousness and Amnesia Narrative Narrative: Middle-age male was taking trash cans inside when he tripped and fell striking his right forehead on the plastic trash can. Causing a laceration to his right forehead. Denies any LOC. Denies any neck pain. Denies any other complaints. He is not on any blood thinners besides aspirin. He denies any headache. This occurred within the last couple hours. Tetanus Immunization: >10 years Prior similar symptoms: No Recent Illness/Hospitalization: No PFSH [facility] Medical History (Updated 03/26/21 @ 13:[address] Joe Gallagher MD) Acute pancreatitis Anxiety and depression Constipation Diabetes mellitus type 2 in nonobese Essential (primary) hypertension Former tobacco use Gastric ulcer Gastric ulcer GERD (gastroesophageal reflux disease) Glaucoma Glaucoma Hyperlipidemia Pancreatitis PTSD (post-traumatic stress disorder) PTSD (post-traumatic stress disorder) Seizure disorder Type 2 diabetes mellitus Home Medications nitroglycerin 0.4 mg SUBLINGUAL Q5M PRN 07/15/13 [History Last Taken 08/22/15] metformin 500 mg PO BID 11/28/13 [History Last Taken 06/06/19] loratadine 10 mg PO DAILY 06/01/17 [History Last Taken 06/06/19] amitriptyline 25 mg tablet 25 mg PO DAILY 07/03/18 [History Last Taken 06/06/19] cholecalciferol (vitamin D3) 1 cap PO DAILY 11/09/18 [History Last Taken 06/06/19] aspirin 81 mg chewable tablet 81 mg PO DAILY@0800 #30 tab 04/09/20 [Rx Last Taken Unknown] magnesium oxide 400 mg (241.3 mg magnesium) tablet 400 mg PO BID #60 tab 04/09/20 [Rx Last Taken Unknown] hydrochlorothiazide 25 mg tablet 25 mg PO DAILY #30 tab 06/05/20 [Rx Last Taken Unknown] pantoprazole 40 mg tablet,delayed release 40 mg PO DAILY #90 tab 07/03/20 [Rx Last Taken Unknown] pravastatin 20 mg tablet 20 mg PO QHS 07/03/20 [History Last Taken Unknown] pravastatin 40 mg tablet 40 mg PO DAILY #30 tab 07/03/20 [Rx Last Taken Unknown] gabapentin 300 mg capsule 300 mg PO BID cap 10/06/20 [History Last Taken U nknown] amlodipine 5 mg PO DAILY 12/30/20 [History Last Taken Unknown] insulin glargine 10 unit SQ QHS 12/30/20 [History Last Taken Unknown] losartan 25 mg PO DAILY 12/30/20 [History Last Taken Unknown] acetaminophen 650 mg PO Q6H PRN PRN #30 tablet 01/01/21 [Rx Last Taken Unknown] levetiracetam 500 mg tablet 500 mg PO BID #60 tab 02/17/21 [Rx Last Taken Unknown] Allergy/AdvReac Type Severity Reaction Status Date / Time lisinopril Allergy Angioedema Verified 03/26/21 11:52 cyclobenzaprine AdvReac Severe Skin Verified 03/26/21 11:52 crawling hydrocodone bitartrate AdvReac Itching Verified 03/26/21 11:52 [From Vicodin] morphine AdvReac Itching Verified 03/26/21 11:52 tramadol AdvReac Itching Verified 03/26/21 11:52 Family History Mother Heart disease Sister Cerebral aneurysm Surgical History History of cholecystectomy (12/2013) History of left heart catheterization (10/31/11) Social History Smoking Status: Former smoker Tobacco: How many years used: 7 Electronic Cigarette Use: not used alcohol intake: current alcohol intake frequency: holidays/special occasions only Alcohol type: beer substance use type: does not use ROS ROS ED ROS Narrative Denies any recent illness. Review of Systems ROS Unobtainable: Denies due to encephalopathy Constitutional Constitutional ED: Denies chills or fever(s) Eyes Eyes: Denies change in vision ENT ENT ED: Denies ear pain Cardiovascular Cardiovascular: Denies chest pain Respiratory/Chest Respiratory/Chest: Denies dyspnea Gastrointestinal Gastrointestinal: Denies abdominal pain, nausea or vomiting Genitourinary Genitourinary ED: Denies dysuria Musculoskeletal Musculoskeletal: Denies myalgias Integumentary Denies rash Neurologic Neurologic: Denies headache(s) Psychiatric Psychiatric: Denies depression Hematologic/Lymphatic Hematologic/Lymphatic: Denies easy bruising Allergic/Immunologic Allergic/Immunologic ED: Denies urticaria EXAM Physical Exam Narrative Exam Narrative: Well-appearing middle-aged male. No acute distress. Vital signs stable afebrile. H EENT exam above his right eyebrow on his forehead there is about a 1 to 2 inch linear, horizontal laceration which will need repaired. Currently there is no significant bleeding. There is no hematoma. Pupils round reactive light. Otherwise face and head and scalp are atraumatic. C-spine nontender. Trachea midline. Normal range of motion of his neck. Heart lung abdominal exams are unremarkable. Chest wall nontender. Moving all 4 extremities. Equal symmetrical curriculum specialist strength. Dorsi plantar flexion intact. Back nontender. Neurologically is awake and alert. He knows a day month and year. He is acting appropriately. GCS is 15. Const Vital Signs: 03/26/21 11:52 03/26/21 11:54 Temperature 97.9 F Temperature Source Temporal Pulse Rate 112 H Respiratory Rate 16 Respiratory Effort Normal Non-Labored Blood Pressure 171/97 H Blood Pressure Mean 121 Pulse Ox 97 Oxygen Delivery Method Room Air Positive well nourished and well developed General Appearance ED: well developed HEENT HEENT Narrative: Right forehead linear laceration 1 to 2 inches in length above the right eyebrow. trauma and tenderness Eyes PERRL and EOMs intact bilaterally Neck full ROM General: Negative for tenderness Chest Wall inspection of chest normal and palpation of chest normal Resp normal respiratory effort and clear to auscultation bilaterally Auscultation: Negative for rales, rhonchi or wheezes GI normal to inspection, nondistended, normoactive bowel sounds, non-tender and non-distended Auscultation: normoactive bowel sounds Palpation: soft Back/Spine normal to inspection and no thoracic nor lumbar tenderness General Back: Negative for CVA tenderness Thoracic Spine / Upper Back: Negative for thoracic spinal tenderness Extremity normal to inspection and full ROM General Extremety ED: Negative for deformity, edema or tenderness General Extremity: Negative for deformity or edema Neuro oriented x3, CN's II-XII intact bilaterally and moves all extremities Sensorium / Orientation: alert, oriented to person, oriented to place and oriented to time; Negative for lethargic or stuporous Motor Exam: strength 5/5 throughout Psych mental status grossly normal Skin no rashes or lesions noted and no wounds PROC Procedures Lacerations Right forehead laceration: Length: 1.5 in Depth: Sub Q Shape: Linear Prep: Sterile Conditions and Shure-Clens Laceration repair: Irrigated, Lidocaine and Wound explored Number of Sutures/Patricia: 3 Suture Information: Ethilon and 4-0 Comment: Good hemostasis wound closure is obtained. Wound was explored there is no foreign body. No significant active bleeding. Patient tolerated procedure well. MDM MDM MDM Narrative Medical decision making narrative: Patient fall with head injury. No LOC. Neurologic exam normal. Tetanus will be updated. Right forehead laceration of 1 to 2 inches to be surgically repaired. Discharge Plan Triage Chief Complaint: Head Injury ED Provider: Joe Gallagher Dx/Rx/DC Orders Clinical Impression: Head injury, Forehead laceration Instructions: ED Head Injury (Adult), ED Laceration: All Closures Prescriptions: No Action amitriptyline 25 mg tablet 25 mg PO DAILY RF: 0 gabapentin 300 mg capsule 300 mg PO BID RF: 0 levetiracetam 500 mg tablet 500 mg PO BID Qty: 60 RF: 2 nitroglycerin 0.4 MG tablet 0.4 mg sublingual Q5M PRN (Reason: Chest Pain) RF: 0 metformin 500 MG tablet 500 mg PO BID RF: 0 loratadine 10 MG capsule 10 mg PO DAILY RF: 0 cholecalciferol (vitamin D3) 5,000 capsule 1 cap PO DAILY RF: 0 insulin glargine 100 UNIT/ML solution 10 unit SQ QHS RF: 0 losartan 50 MG tablet 25 mg PO DAILY RF: 0 amlodipine 10 MG tablet 5 mg PO DAILY RF: 0 acetaminophen 325 MG tablet 650 mg PO Q6H PRN PRN (Reason: Pain Score 1-10/Temp > 100.7 F) Qty: 30 RF: 1 aspirin 81 mg tablet,chewable 81 mg PO DAILY@0800 Qty: 30 RF: 11 magnesium oxide 400 mg (241.3 mg magnesium) tablet 400 mg PO BID Qty: 60 RF: 11 hydrochlorothiazide 25 mg tablet 25 mg PO DAILY Qty: 30 RF: 11 pantoprazole 40 mg tablet,delayed release (DR/EC) 40 mg PO DAILY Qty: 90 RF: 0 pravastatin 20 mg tablet 20 mg PO QHS RF: 0 pravastatin 40 mg tablet 40 mg PO DAILY Qty: 30 RF: 11 Primary Care Provider: Souleymane Kelly NP Referrals: Souleymane Kelly NP, FLIGHT ENGINEER INSPECTOR-C [Primary Care Provider] - 7 Days for suture removal Activity Restrictions/Additional Instructions: Keep wound clean. Apply antibiotic ointment daily. Stitches can be taken out by us or your primary care provider in 7 to 10 days. Ice to the area. Tylenol Motrin for pain. If severe headache or intractable vomiting or feeling worse return. Disposition Disposition: Home, Self Care
[2021-03-26] MEDS: Diphth,Pertuss(Acell),Tet Vac 0.5 ML Vial IM (12:55)
[2021-03-26] MEDS: Lidocaine 1% (20 ml mdv) 20 ML Vial 8 ML INFILT (12:55)
== END 2021-03-26 13:50 | disposition home or self-care (01) ==
PROVIDERS: Emergency Provider Emergency Medicine; PCP Nurse Practitioner Family
DX: S01.81XA Laceration without foreign body of other part of head, initial encounter (principal); Z23 Encounter for immunization; W01.10XA Fall on same level from slipping, tripping and stumbling with subsequent striking against unspecified object, initial encounter; Y93.E9 Activity, other interior property and clothing maintenance; Y92.9 Unspecified place or not applicable; Y99.9 Unspecified external cause status; E11.9 Type 2 diabetes mellitus without complications; I10 Essential (primary) hypertension; K21.9 Gastro-esophageal reflux disease without esophagitis; H40.9 Unspecified glaucoma; E78.5 Hyperlipidemia, unspecified; G40.909 Epilepsy, unspecified, not intractable, without status epilepticus; Z79.4 Long term (current) use of insulin; Z79.82 Long term (current) use of aspirin; Z79.899 Other long term (current) drug therapy; Z87.11 Personal history of peptic ulcer disease; Z87.891 Personal history of nicotine dependence
CPT/HCPCS: 12011; 90471; 90715; 99285

== ENCOUNTER → 2021-04-22 13:45 | Outpatient (CLI) | payer MEDICARE, MEDICAID, SELFPAY ==
[2021-04-22 13:34] VITALS: BMI 31.3
[2021-04-26 16:09] LABS: Albumin 4.2 g/dL (2.9-4.4); Alpha-1-Globulins 0.3 g/dL (0.0-0.4); Alpha-2-Globulins 0.9 g/dL (0.4-1.0); Free Kappa Light Chains 31.1 mg/L (3.3-19.4); Free Lambda Light Chains 25.1 mg/L (5.7-26.3); Gamma Globulin 1.3 g/dL (0.4-1.8); Immunoglobulin A 358 mg/dL (90-386); Immunoglobulin G 1252 mg/dL (603-1613); Immunoglobulin M 104 mg/dL (20-172); PROEL- TOTAL PROTEIN 8.3 g/dL (6.0-8.5)
[2021-04-26 16:47] LABS: IMMUNOFIXATION RESULT,S Comment: (.)
== END ==
PROVIDERS: PCP Nurse Practitioner Family; Referring Provider Nurse Practitioner Family; Visit Provider Nurse Practitioner Family
DX: G40.409 Other generalized epilepsy and epileptic syndromes, not intractable, without status epilepticus (principal); G62.9 Polyneuropathy, unspecified
CPT/HCPCS: 36415; 82140; 82784; 83883; 84165; 86334; 86335

== ENCOUNTER 2021-05-13 11:05 | Inpatient (IN) | payer MEDICARE, MEDICAID, SELFPAY ==
[2021-05-13] VITALS (7 sets, daily range): BP systolic 110–162; BP diastolic 69–98; PULSE 80–107; RESP 16–21; TEMP 36.3–37.1; O2SAT 94–99; BMI 29.9; BMI 29.0
--- NOTE | 2021-05-13 11:27 | EKG12_ITS ---
Test Reason : Blood Pressure : / mmHG Vent. Rate : 109 BPM Atrial Rate : 109 BPM P-R Int : 138 ms QRS Dur : 080 ms QT Int : 332 ms P-R-T Axes : 054 -14 -07 degrees QTc Int : 447 ms Sinus tachycardia Nonspecific T wave abnormality Abnormal ECG Confirmed by CHIP CADE, TAPAN ([id number]), editor magazine ERNA STERN ([id number]) on 05/17/2021 1:01:09 PM Referred By: KRISTOPHER Confirmed By:TAPAN SAUNDERS MD
--- NOTE | 2021-05-13 11:27 | ED.VIS.GI ---
HPI HPI - GI History of Present Illness Chief Complaint: Abd Pain Informant: patient Abdominal Pain/Flank Pain Onset: Today Context: Sudden Onset Timing: Continuous Quality: Sharp Location: Epigastric Current Severity: Moderate Maximum Severity: Moderate Worsened by: Nothing Nausea/Vomiting/Emesis GI Symptom: Positive for Nausea Onset: Today Diarrhea/Melena/Hematochezia GI Symptom: Negative for Diarrhea and Melena Associated Symptoms Associated Symptoms: Negative for Dysuria, Frequency, Hematuria and Urgency Narrative Narrative: 56-year-old male with history of pancreatitis, diabetes, hypertension, IA without stents seizure disorder. States that father's morning he awoke with epigastric dull pain radiating to his back. Associated nausea without vomiting or diarrhea. No melena. No fever or chills. He has had a prior cholecystectomy. Prior similar symptoms: Yes Recent Illness/Hospitalization: No PFSH PFSH Medical History Acute pancreatitis Anxiety and depression Constipation Diabetes mellitus type 2 in nonobese Essential (primary) hypertension Former tobacco use Gastric ulcer Gastric ulcer GERD (gastroesophageal reflux disease) Glaucoma Glaucoma Hyperlipidemia Pancreatitis PTSD (post-traumatic stress disorder) PTSD (post-traumatic stress disorder) Seizure disorder Serum ammonia increased Type 2 diabetes mellitus Home Medications nitroglycerin 0.4 mg SUBLINGUAL Q5M PRN 07/15/13 [History Last Taken 08/22/15] metformin 500 mg PO BID 11/28/13 [History Last Taken 06/06/19] loratadine 10 mg PO DAILY 06/01/17 [History Last Taken 06/06/19] amitriptyline 25 mg tablet 25 mg PO DAILY 07/03/18 [History Last Taken 06/06/19] cholecalciferol (vitamin D3) 1 cap PO DAILY 11/09/18 [History Last Taken 06/06/19] aspirin 81 mg chewable tablet 81 mg PO DAILY@0800 #30 tab 04/09/20 [Rx Last Taken Unknown] magnesium oxide 400 mg (241.3 mg magnesium) tablet 400 mg PO BID #60 tab 04/09/20 [Rx Last Taken Unknown] hydrochlorothiazide 25 mg tablet 25 mg PO DAILY #30 tab 06/05/20 [Rx Last Taken Unknown] pantoprazole 40 mg tablet,delayed release 40 mg PO DAILY #90 tab 07/03/20 [Rx Last Taken Unknown] pravastatin 40 mg tablet 40 mg PO DAILY #30 tab 07/03/20 [Rx Last Taken Unknown] gabapentin 300 mg capsule 300 mg PO BID cap 10/06/20 [History Last Taken Unknown] amlodipine 5 mg PO DAILY 12/30/20 [History Last Taken Unknown] insulin glargine 10 unit SQ QHS 12/30/20 [History Last Taken Unknown] losartan 25 mg PO DAILY 12/30/20 [History Last Taken Unknown] acetaminophen 650 mg PO Q6H PRN PRN #30 tablet 01/01/21 [Rx Last Taken Unknown] lactulose 10 gram/15 mL oral solution 10 g PO DAILY #473 ml 04/22/21 [Rx Last Taken Unknown] levetiracetam 500 mg tablet 500 mg PO BID #60 tab 04/22/21 [Rx Last Taken Unknown] Allergy/AdvReac Type Severity Reaction Status Date / Time lisinopril Allergy Angioedema Verified 05/13/21 11:09 cyclobenzaprine AdvReac Severe Skin Verified 05/13/21 11:09 crawling hydrocodone bitartrate AdvReac Itching Verified 05/13/21 11:09 [From Vicodin] morphine AdvReac Itching Verified 05/13/21 11:09 tramadol AdvReac Itching Verified 05/13/21 11:09 Family History Mother Heart disease Sister Cerebral aneurysm Surgical History History of cholecystectomy (12/2013) History of left heart catheterization (10/31/11) Social History Smoking Status: Former smoker Tobacco: How many years used: 7 Electronic Cigarette Use: not used alcohol intake: current alcohol intake frequency: holidays/special occasions only Alcohol type: beer substance use type: does not use ROS ROS ED ROS Narrative Patient with nausea. Review of Systems ROS Unobtainable: Denies due to encephalopathy Constitutional Constitutional ED: Denies chills or fever(s) ENT ENT ED: Denies ear pain or sore throat Cardiovascular Cardiovascular: Denies chest pain Respiratory/Chest Respiratory/Chest: Denies cough or dyspnea Gastrointestinal Gastrointestinal: Reports abdominal pain and nausea; Denies constipation, diarrhea, melena or vomiting Genitourinary Genitourinary ED: Denies dysuria or hematuria Musculoskeletal Musculoskeletal: Denies myalgias Integumentary Denies rash Neurologic Neurologic: Denies headache(s) Psychiatric Psychiatric: Denies depression Endocrine Endocrinology: Denies polyuria Hematologic/Lymphatic Hematologic/Lymphatic: Denies easy bruising Allergic/Immunologic Allergic/Immunologic ED: Denies urticaria EXAM Physical Exam Narrative Exam Narrative: Middle-age male bent over complaining of midepigastric pain. Vital signs are stable afebrile. Initial blood pressure 142/98. Pulse ox 9% on room air no hypoxia. HEENT exam unremarkable. Neck nontender no JVD. No lymphadenopathy. Lungs clear to auscultation bilaterally. Heart regular rhythm rate about 100. Abdomen soft. Tender epigastric region. Nondistended. Normal bowel sounds no peritoneal signs. Right upper and right lower quadrant unremarkable. Moving all 4 extremities. Calves nontender. Back nontender. Neurologically awake alert moving all 4 extremities. Const Vital Signs: 05/13/21 11:06 Temperature 98.4 F Temperature Source Oral Pulse Rate 106 H Respiratory Rate 21 H Blood Pressure 142/98 H Blood Pressure Mean 112 Pulse Ox 99 Oxygen Delivery Method Room Air Positive well nourished and well developed; Negative for unkempt General Appearance ED: well developed; Negative for unkempt, NAD or pallor HEENT Reports moist mucous membranes normocephalic and atraumatic; Negative for trauma or tenderness Eyes PERRL and EOMs intact bilaterally Neck no lymphadenopathy, supple and no JVD General: Negative for tenderness Resp normal respiratory effort and clear to auscultation bilaterally Auscultation: Negative for rales, rhonchi or wheezes Cardio regular rate, regular rhythm, S1 normal heart sound, S2 normal heart sound and no murmurs GI non-distended and no masses; Negative for non-tender Inspection: Negative for abdominal distention Auscultation: normoactive bowel sounds; Negative for hyperactive bowel sounds or hypoactive bowel sounds Palpation: soft and tender; Negative for guarding, rigid or rebound tenderness present Back/Spine no CVA tenderness General Back: Negative for CVA tenderness Cervical Spine: Negative for cervical spine tenderness Thoracic Spine / Upper Back: Negative for thoracic spinal tenderness Extremity full ROM General Extremety ED: Negative for edema or tenderness General Extremity: Negative for edema Neuro moves all extremities Sensorium / Orientation: alert, oriented to person, oriented to place and oriented to time; Negative for orientation impaired Psych mental status grossly normal Appearance: Negative for unkempt Skin no wounds General Skin Exam: Negative for jaundice or pallor Lesions: no lesions Rashes: no rashes MDM MDM MDM Narrative Medical decision making narrative: Middle-age male complaint epigastric rosemarie pain clinically this is pancreatitis versus other etiologies. Cardiac etiology be considered but is less likely. Further versus other intra-abdominal pathology. Will be treated with IV morphine, Zofran and fluids. Labs are being obtained. Repeat a.m. patient is being given his pain medications currently by the nurse. I discussed the test results and I have the hospitalist on page for admission. Lab Data Attestation: I reviewed the patient's lab results. Lab results narrative: CBC shows a white count 13.7. Hemoglobin 15. Electrolytes unremarkable gap 11. Creatinine 1.1. Liver enzymes normal. Lipase elevated at 4980 consistent with acute pancreatitis which she has had before. Labs: Laboratory Results - last 24 hr 05/13/21 05/13/21 11:15 11:15 WBC 13.7 H RBC 4.84 Hgb 15.0 Hct 44.8 MCV 92.6 MCH 31.0 MCHC 33.5 RDW Std Deviation 43.9 RDW Coeff of Armin 12.9 Plt Count 241 MPV 9.6 Immature Gran % (Auto) 0.500 Neut % (Auto) 71.2 H Lymph % (Auto) 20.3 [place] % (Auto) 6.9 Eos % (Auto) 0.7 Baso % (Auto) 0.4 Absolute Neuts (auto) 9.7 H Absolute Lymphs (auto) 2.78 Nucleated RBC % 0 Sodium 137 Potassium 3.6 Chloride 102 Carbon Dioxide 24.0 Anion Gap 11 BUN 19 H Creatinine 1.19 Estim Creat Clear Calc 71.57 Est GFR (MDRD) Af Amer 81 Est GFR (MDRD) Non-Af 67 BUN/Creatinine Ratio 16.0 Glucose 201 H Calcium 9.8 Total Bilirubin 0.90 AST 30 ALT 49 Alkaline Phosphatase 75 Troponin I High Sens 10 Total Protein 8.6 H Albumin 4.4 Globulin 4.2 Albumin/Globulin Ratio 1.0 Lipase 4980 H Radiography Diagnostic Testing: Chest x-ray shows bilateral pleural effusions with CHF. EKG Initial EKG: Attestation: I personally reviewed and interpreted this EKG as follows: Interpretation: Sinus Rhythm and No Acute Injury Pattern Comments: Sinus rhythm rate of 64 with first-degree AV block. TX interval 210. No acute signs of IA or ischemia. Prior EKG tracings: not available for review Discharge Plan Dx/Rx/DC Orders Clinical Impression: Pancreatitis Disposition Disposition: Acute Care Hospital [facility]
[2021-05-13 11:32] LABS: Absolute Lymphocyte Count 2.78 X10^3/uL (0.83-4.51); Absolute Neutrophil Count 9.7 X10^3/uL (2.0-7.7); Basophil# 0.05 X10^3/uL; Basophil% 0.4 % (0-1); Eosinophils% 0.7 % (0-5); Hematocrit 44.8 % (40-54); Lymphocyte # 2.78 X10^3/ul (0.83-4.51); Lymphocyte % 20.3 % (19-41); Mean Corp Hgb Conc 33.5 g/dL (32-36); Mean Corpuscular Volume 92.6 fL (80-94); Mean Platelet Vol. 9.6 fl (6.2-12.0); Monocyte# 0.95 X10^3/uL; Monocyte% 6.9 % (0-10); NRBC Flagged by Analyzer 0 % (0-5); Neutrophil # 9.72 X10^3/uL (2.7-7.7); Neutrophil % 71.2 % (47-70); Platelet Count 241 K/mm3 (150-450); RBC Distribution Width CV 12.9 % (11.6-14.6); RBC Distribution Width SD 43.9 fl (35.1-43.9); Red Blood Count 4.84 M/mm3 (4.6-6.2); White Blood Count 13.7 K/mm3 (4.4-11.0)
[2021-05-13 11:52] LABS: AST(SGOT) 30 U/L (15-37); Alanine Aminotransfer ALT/SGPT 49 U/L (16-61); Albumin, Serum 4.4 g/dL (3.2-5.0); Alkaline Phosphatase 75 U/L (45-117); Anion Gap 11 (5-15); BUN 19 mg/dL (7-18); Calcium,Total 9.8 mg/dL (8.5-10.1); Chloride 102 mmol/L (98-107); Creatinine, Serum 1.19 mg/dL (0.70-1.30); EST Glomerular Filtration Rate 67 mL/min (>60); Est Glom Filt Rate - Afr Amer 81 mL/min (>60); Estimated Creatinine Clearance 71.57 ml/min; Globulin 4.2 g/dL (2.2-4.2); Glucose 201 mg/dL (74-106); Lipase 4980 U/L (73-393); Potassium 3.6 mmol/L (3.5-5.1); Protein, Total 8.6 g/dL (6.4-8.2); Sodium Level 137 mmol/L (136-145); Troponin-I HS 10 pg/mL (3.0-78.0)
[2021-05-13] MEDS: morphine 10 MG/ML Syringe IV ×2 (11:59→15:19)
[2021-05-13] MEDS: Ondansetron 4 MG/2 ML Vial IV ×2 (11:59→15:20)
[2021-05-13] MEDS: 0.9% Normal Saline 1,000 ML 1000 ML IV (12:03)
--- NOTE | 2021-05-13 12:55 | US_ITS ---
STUDY: ABDOMINAL ULTRASOUND - RIGHT UPPER QUADRANT REASON FOR VISIT: Male, 56 years old . Pancreatitis. Right upper quadrant pain. TECHNIQUE: Ultrasound evaluation of the right upper quadrant was performed with real-time and static adam-scale imaging. TECHNICAL QUALITY: Limited. Examination limited by bowel gas. COMPARISON: Comparison is made with prior examination dated 11/09/2018. FINDINGS: Liver: The liver is slightly enlarged and measures 18.1 cm. There is increased echogenicity consistent with fatty infiltration. The bile ducts are within normal limits. There is hepatic color flow. The direction of portal flow is hepatopetal. There is no demonstrated mass lesion. Gallbladder: The patient is status post cholecystectomy. Common Bile Duct (C.B.D.): The common bile duct measures 8.3 mm. Pancreas: There is nonvisualization of the pancreas due to overlying bowel gas. Right Kidney: Normal size of the right kidney. The right kidney measures 10.8 cm x 6.1 cm x 6.1 cm. Normal renal cortex. The right cortex measures 1.7 cm. There is no demonstrated renal mass or cyst. There is no right hydronephrosis. US/Abdomen Limited IMPRESSION: Fatty infiltration of the liver. The pancreas is obscured due to overlying bowel gas. Electronically Signed: Brendan Ty MD at 14:20 EDT , Service support ,
--- NOTE | 2021-05-13 12:55 | RAD_ITS ---
STUDY: X-RAY - ABDOMEN/PELVIS REASON FOR EXAM: Male, 56 years old. Epigastric pain. Right flank pain. TECHNIQUE: Single AP view of the abdomen / pelvis. COMPARISON: None. FINDINGS: Mild increased markings at the lung bases suggestive of atelectasis. There is a moderate amount of colonic fecal material. The visualized liver, spleen and kidneys are grossly normal in size and morphology. Normal soft tissue structures. Normal visualized osseous structures. RAD/Abdomen Single View (Portable) IMPRESSION: Nonspecific bowel gas pattern. Electronically Signed: Brendan Ty MD at 14:22 EDT , Service support ,
--- NOTE | 2021-05-13 12:55 | HP.PCM.HOS_ITS ---
[facility] - General General Date of Admission: 05/13/21 Date of Service: 05/13/21 Chief Complaint: abdominal pain HPI Narrative With his priorMORGAN NITHIN, is a 56 M who presents with abdominal pain. Abdominal pain is described as epigastric radiating to his back. History of pancreatitis. Patient states that he has not had any alcohol consumption as of late. He presented to the emergency room where his lipase was 4980. He received ondansetron, morphine and IV fluids. He is still having abdominal pain at this time. This episode feels worse and he has not had in the past. [facility] Medical History Acute pancreatitis Anxiety and depression Constipation Diabetes mellitus type 2 in nonobese Essential (primary) hypertension Former tobacco use Gastric ulcer Gastric ulcer GERD (gastroesophageal reflux disease) Glaucoma Glaucoma Hyperlipidemia Pancreatitis PTSD (post-traumatic stress disorder) PTSD (post-traumatic stress disorder) Seizure disorder Serum ammonia increased Type 2 diabetes mellitus Home Medications nitroglycerin 0.4 mg SUBLINGUAL Q5M PRN 07/15/13 [History Last Taken 08/22/15] metformin 500 mg PO BID 11/28/13 [History Last Taken 06/06/19] loratadine 10 mg PO DAILY 06/01/17 [History Last Taken 06/06/19] amitriptyline 25 mg tablet 25 mg PO DAILY 07/03/18 [History Last Taken 06/06/19] cholecalciferol (vitamin D3) 1 cap PO DAILY 11/09/18 [History Last Taken 05/26 11/13] aspirin 81 mg chewable tablet 81 mg PO DAILY@0800 #30 tab 04/09/20 [Rx Last Taken Unknown] magnesium oxide 400 mg (241.3 mg magnesium) tablet 400 mg PO BID #60 tab 04/09/20 [Rx Last Taken Unknown] hydrochlorothiazide 25 mg tablet 25 mg PO DAILY #30 tab 06/05/20 [Rx Last Taken Unknown] pantoprazole 40 mg tablet,delayed release 40 mg PO DAILY #90 tab 07/03/20 [Rx Last Taken Unknown] pravastatin 40 mg tablet 40 mg PO DAILY #30 tab 07/03/20 [Rx Last Taken Unknown] gabapentin 300 mg capsule 300 mg PO BID cap 10/06/20 [History Last Taken Unknown] amlodipine 5 mg PO DAILY 12/30/20 [History Last Taken Unknown] insulin glargine 10 unit SQ QHS 12/30/20 [History Last Taken Unknown] losartan 25 mg PO DAILY 12/30/20 [History Last Taken Unknown] acetaminophen 650 mg PO Q6H PRN PRN #30 tablet 01/01/21 [Rx Last Taken Unknown] lactulose 10 gram/15 mL oral solution 10 g PO DAILY #473 ml 04/22/21 [Rx Last Taken Unknown] levetiracetam 500 mg tablet 500 mg PO BID #60 tab 04/22/21 [Rx Last Taken Unkn own] Allergy/AdvReac Type Severity Reaction Status Date / Time lisinopril Allergy Angioedema Verified 05/13/21 11:09 cyclobenzaprine AdvReac Severe Skin Verified 05/13/21 11:09 crawling hydrocodone bitartrate AdvReac Itching Verified 05/13/21 11:09 [From Vicodin] morphine AdvReac Itching Verified 05/13/21 11:09 tramadol AdvReac Itching Verified 05/13/21 11:09 Family History Mother Heart disease Sister Cerebral aneurysm Surgical History History of cholecystectomy (12/2013) History of left heart catheterization (10/31/11) Social History Smoking Status: Former smoker Tobacco: How many years used: 7 Electronic Cigarette Use: not used alcohol intake: current alcohol intake frequency: holidays/special occasions only Alcohol type: beer substance use type: does not use ROS ROS Narrative No diarrhea or constipation. Nausea and vomiting. Had some clear emesis while in the emergency room. All review of systems were negative except as mentioned above in the history of present illness and the other review of systems. Vital Signs Vital Signs Vital Signs: 05/13/21 11:06 Temperature 36.9 C Temperature Source Oral Pulse Rate 106 H Respiratory Rate 21 H Blood Pressure 142/98 H Blood Pressure Mean 112 Pulse Ox 99 Oxygen Delivery Method Room Air Weight Weight: 94.8 kg Body Mass Index (BMI) 29.9 Physical Exam Const alert and oriented x3 Constitutional Narrative: Uncomfortable. Afebrile. Eyes Eyes Narrative: No icterus Neck no lymphadenopathy Neck Narrative: No thyromegaly Resp normal respiratory effort, no retractions, no use of accessory muscles and clear to auscultation bilaterally Cardio regular rate, regular rhythm, S1 normal heart sound and S2 normal heart sound GI soft to palpation and non-distended GI Narrative: Slightly distended but soft. Diffusely tender but most prominent in the epigastrium. Extremity normal to inspection Neuro Sensorium / Orientation: awake and alert Psych Mood & Affect: anxious Results Lab / Micro Data Attestation: I reviewed the patient's lab results. Result Diagrams: 05/13/21 11:15 05/13/21 11:15 Labs: Laboratory Results - last 24 hr 05/13/21 11:15: WBC 13.7 H, RBC 4.84, Hgb 15.0, Hct 44.8, MCV 92.6, MCH 31.0, MC HC 33.5, RDW Std Deviation 43.9, RDW Coeff of Armin 12.9, Plt Count 241, MPV 9.6, Immature Gran % (Auto) 0.500, Neut % (Auto) 71.2 H, Lymph % (Auto) 20.3, [place] % (Auto) 6.9, Eos % (Auto) 0.7, Baso % (Auto) 0.4, Absolute Neuts (auto) 9.7 H, Absolute Lymphs (auto) 2.78, Nucleated RBC % 0 05/13/21 11:15: Sodium 137, Potassium 3.6, Chloride 102, Carbon Dioxide 24.0, Anion Gap 11, BUN 19 H, Creatinine 1.19, Estim Creat Clear Calc 71.57, Est GFR (MDRD) Af Amer 81, Est GFR (MDRD) Non-Af 67, BUN/Creatinine Ratio 16.0, Glucose 201 H, Calcium 9.8, Total Bilirubin 0.90, AST 30, ALT 49, Alkaline Phosphatase 75, Troponin I High Sens 10, Total Protein 8.6 H, Albumin 4.4, Globulin 4.2, Albumin/Globulin Ratio 1.0, Lipase 4980 H Assessment & Plan Assessment/Plan (1) Pancreatitis: QUALIFIERS: Chronicity: acute Pancreatitis type: unspecified pancreatitis type Acute pancreatitis complication: no infection or necrosis Qualified Code(s): K85.90 - Acute pancreatitis without necrosis or infection, unspecified PLAN: 1. Acute pancreatitis Patient denies alcohol consumption and has had his gallbladder removed IV fluids, pain control and antiemetics Check an ultrasound. Patient may need an MRCP 2. Abdominal pain Secondary to #1 No imaging performed emergency room. Please get a CAT scan to rule out any othe r process such as an ileus or small bowel obstruction 3. Diabetes mellitus type 2 Continue basal insulin and sliding scale insulin 4. Seizure disorder Continue with the levetiracetam 5. VTE prophylaxis with enoxaparin Charges/Coding Visit Charges Inpatient E&M: 32103 Init Hosp L3
--- NOTE | 2021-05-13 15:27 | ED.RN ---
physician and nurse aware pt does develop itching with morphine. pt agreed to take. is itching currently. benadryl ordered
[2021-05-13] MEDS: DiphenhydrAMINE 50 MG/ML Syringe 25 MG IV (15:29)
[2021-05-13] MEDS: HYDROmorphone 1 MG/ML Syringe IV ×2 (16:01→20:16)
[2021-05-13] MEDS: Lactated Ringers 1,000 ML 200 ML IV ×2 (16:03→20:45)
[2021-05-13] MEDS: Insulin Lispro 100 UNIT/ML INSULN.PEN SC (17:17)
[2021-05-13 17:26] LABS: Bedside Glucose 236 mg/dL (70-110)
[2021-05-13] MEDS: 0.9% Saline Lock 10 ML Syringe IV (20:16)
[2021-05-13] MEDS: levETIRAcetam 500 MG Tablet PO (22:05)
[2021-05-13] MEDS: Gabapentin 300 MG Capsule PO (22:05)
[2021-05-13] MEDS: Amitriptyline 25 MG Tablet PO (22:06)
[2021-05-13] MEDS: DiphenhydrAMINE 25 MG Capsule PO (23:27)
[2021-05-13 23:41] LABS: Bedside Glucose 249 mg/dL (70-110)
[2021-05-14] VITALS (7 sets, daily range): BP systolic 145–173; BP diastolic 63–109; PULSE 91–108; RESP 16–20; TEMP 37–37.5; O2SAT 94–100
[2021-05-14] MEDS: HYDROmorphone 1 MG/ML Syringe IV ×2 (01:08→05:21)
[2021-05-14] MEDS: 0.9% Saline Lock 10 ML Syringe IV ×4 (01:08→15:07)
[2021-05-14] MEDS: Lactated Ringers 1,000 ML 200 ML IV ×5 (01:10→22:29)
[2021-05-14] MEDS: Insulin Lispro 100 UNIT/ML INSULN.PEN SC (05:24)
[2021-05-14 06:16] LABS: Bedside Glucose 241 mg/dL (70-110)
[2021-05-14 06:57] LABS: Absolute Lymphocyte Count 1.38 X10^3/uL (0.83-4.51); Absolute Neutrophil Count 13.9 X10^3/uL (2.0-7.7); Basophil# 0.03 X10^3/uL; Basophil% 0.2 % (0-1); Hematocrit 40.5 % (40-54); Hemoglobin 13.4 g/dL (13.0-16.5); Lymphocyte # 1.38 X10^3/ul (0.83-4.51); Lymphocyte % 8.4 % (19-41); Mean Corp Hgb Conc 33.1 g/dL (32-36); Mean Corpuscular Hgb 30.9 pg (27.0-32.0); Mean Corpuscular Volume 93.3 fL (80-94); Mean Platelet Vol. 9.9 fl (6.2-12.0); Monocyte# 0.92 X10^3/uL; Monocyte% 5.6 % (0-10); NRBC Flagged by Analyzer 0 % (0-5); Neutrophil # 13.91 X10^3/uL (2.7-7.7); Neutrophil % 85.2 % (47-70); Platelet Count 201 K/mm3 (150-450); RBC Distribution Width CV 12.5 % (11.6-14.6); RBC Distribution Width SD 43.4 fl (35.1-43.9); Red Blood Count 4.34 M/mm3 (4.6-6.2); White Blood Count 16.3 K/mm3 (4.4-11.0)
[2021-05-14 07:30] LABS: ALB/GLOB Ratio 1.1 RATIO (0.9-2.4); AST(SGOT) 25 U/L (15-37); Alanine Aminotransfer ALT/SGPT 38 U/L (16-61); Alkaline Phosphatase 62 U/L (45-117); Anion Gap 7 (5-15); BUN 13 mg/dL (7-18); BUN/Creat Ratio 12.4 RATIO (10-20); Calcium,Total 9.2 mg/dL (8.5-10.1); Chloride 100 mmol/L (98-107); Creatinine, Serum 1.05 mg/dL (0.70-1.30); EST Glomerular Filtration Rate 78 mL/min (>60); Est Glom Filt Rate - Afr Amer 94 mL/min (>60); Estimated Creatinine Clearance 81.11 ml/min; Globulin 3.6 g/dL (2.2-4.2); Glucose 209 mg/dL (74-106); Lipase 5830 U/L (73-393); Potassium 3.1 mmol/L (3.5-5.1); Protein, Total 7.6 g/dL (6.4-8.2); Sodium Level 136 mmol/L (136-145)
--- NOTE | 2021-05-14 07:53 | MRI_ITS ---
STUDY: MR MRCP WITHOUT CONTRAST REASON FOR EXAM: Male, 56 years old. pancreatitis TECHNIQUE: Standard MRCP technique was utilized. COMPARISON: None. FINDINGS: Gall Bladder: Gall bladder is surgically absent. Cystic duct: Normal with no demonstrated fixed filling defect. Intrahepatic ducts: Normal visualized intrahepatic ducts with no demonstrated fixed filling defect, dilation or stricture. Common hepatic duct: Normal with no demonstrated fixed filling defect, dilation or stricture. Common bile duct: Normal with no demonstrated fixed filling defect, dilation or stricture. Pancreatic duct: Normal with no demonstrated fixed filling defect, dilation or stricture. MRI/MRCP Abdomen without Contrast IMPRESSION: Normal MR Cholangiopancreatography (MRCP) after cholecystectomy. Electronically Signed: Elmer Mcdaniel MD at 11:14 EDT Tel , Service support ,
[2021-05-14] MEDS: Ketorolac 30 MG/ML Syringe IV ×2 (08:30→18:55)
[2021-05-14] MEDS: Aspirin 81 MG TAB.CHEW PO (08:31)
[2021-05-14] MEDS: DiphenhydrAMINE 25 MG Capsule PO (08:31)
[2021-05-14] MEDS: Losartan Potassium 25 MG Tablet PO (10:45)
[2021-05-14] MEDS: Pantoprazole Sodium 40 MG Tablet PO (10:45)
[2021-05-14] MEDS: Loratadine 10 MG Tablet PO (10:45)
[2021-05-14] MEDS: Magnesium Chloride 64 MG Delay Rel.Tablet 128 MG PO (10:45)
[2021-05-14] MEDS: amLODIPine 5 MG Tablet PO (10:45)
[2021-05-14] MEDS: Enoxaparin 40 MG/0.4 ML Syringe SC (10:45)
[2021-05-14] MEDS: Gabapentin 300 MG Capsule PO ×2 (10:45→22:31)
[2021-05-14] MEDS: Lactulose 20 GM/30 ML UDC 10 GM PO (10:46)
[2021-05-14] MEDS: levETIRAcetam 500 MG Tablet PO ×2 (10:51→22:31)
[2021-05-14] MEDS: Mineral Oil/Petrolatum Cr 1.75oz Bottle 1 APPLIC TOPICAL (10:52)
--- NOTE | 2021-05-14 11:05 | CASEMGMT ---
UZMA BAKER Assessment: Face to Face with pt for initial transition planning/care coordination assessment. RN SAMUEL introduced self and role at [facility], pt voices understanding and consents to assessment. Pt is A/O x4 and answers all questions appropriately at this time. Pt sitting up in bed rubbing his feet, states nurse just gave him cream for them as they are itching. Care providers, pharmacy, and demographics verified/updated. Admitting Dx: Pancreatitis PCP:Souleymane Kelly [employer] Specialists:[place], cardio, urologist in [place] associated with [facility]- pt states he gets a MRI Monday of prostate; neurologist from [place] Preferred Pharmacy: [facility] while inpatient Insurance: My [employer] CRS, CRS Prescription Benefit: yes LW/HPOA: Pt states he does have paperwork for LW but has not completed it. States his sister will make healthcare decisions for him if he is not able, but it is a verbal understanding only. LNOK: Eunice Houser [facility]; Sharee Ochoa, sister Living Arrangements: Pt lives in a ground level apt with 5 steps to enter with rail. Pt states he is I in ADL's and denies concerns at home. Transportation: Pt does not drive d/t epilepsy. He uses [employer] through his insurance for transportation to medical appts. He questions how he will get home after dc. Spoke with FRANKIE Mock who states he can call his insurance company for transportation. Pt will do so. DME/HHC/SNF: Pt has a medic alert, BP cuff and pulse ox at home. Denies previous HHC or SNF stay. Pt denies current alcohol use. He states he used to drink 2 beers of Coors Light but cannot due to his DM and now cannot d/t pancreatitis. Pt denies smoking or illegal drug/street drug use. Pt states no concerns with going home at time of dc. Pt states no further concerns/needs. CM to follow. Advised pt to ask CM if any further question/concerns/needs arise, voices understanding. Pt Goal: Home Plan: Home
--- NOTE | 2021-05-14 11:08 | PCM.PN.HOSP ---
Subjective Subjective Still with abdominal pain. Complains of itching particularly in his legs but states that the itching began before he was even picked up by EMS. He thinks that the itching is worse with the pain medications. Patient has a known history of morphine allergy. Objective Data Objective Data Vital Signs: Vital Signs Temp Pulse Resp BP Pulse Ox 37.2 C 93 18 157/98 H 95 05/14/21 09:00 05/14/21 09:00 05/14/21 09:00 05/14/21 09:00 05/14/21 09:00 Oxygen Delivery Method Room Air Weight: 91.626 kg Body Mass Index (BMI) 29.0 Intake & Output: Intake and Output for Last 24 Hours 05/12/21 05/13/21 05/14/21 23:59 23:59 23:59 Intake Total 1989 / 1989 2449.99 / 2449.99 Output Total 825 / 825 500 / 500 Balance 1165 / 1165 1949.99 / 1949.99 Lab / Micro Data Result Diagrams: 05/14/21 06:00 05/14/21 06:00 Labs: Laboratory Results - last 24 hr 05/13/21 11:15: WBC 13.7 H, RBC 4.84, Hgb 15.0, Hct 44.8, MCV 92.6, MCH 31.0, MCHC 33.5, RDW Std Deviation 43.9, RDW Coeff of Armin 12.9, Plt Count 241, MPV 9.6, Immature Gran % (Auto) 0.500, Neut % (Auto) 71.2 H, Lymph % (Auto) 20.3, [place] % (Auto) 6.9, Eos % (Auto) 0.7, Baso % (Auto) 0.4, Absolute Neuts (auto) 9.7 H, Absolute Lymphs (auto) 2.78, Nucleated RBC % 0 05/13/21 11:15: Sodium 137, Potassium 3.6, Chloride 102, Carbon Dioxide 24.0, Anion Gap 11, BUN 19 H, Creatinine 1.19, Estim Creat Clear Calc 71.57, Est GFR (MDRD) Af Amer 81, Est GFR (MDRD) Non-Af 67, BUN/Creatinine Ratio 16.0, Glucose 201 H, Calcium 9.8, Total Bilirubin 0.90, AST 30, ALT 49, Alkaline Phosphatase 75, Troponin I High Sens 10, Total Protein 8.6 H, Albumin 4.4, Globulin 4.2, Albumin/Globulin Ratio 1.0, Lipase 4980 H 05/13/21 17:15: POC Glucose 236 H 05/13/21 22:01: POC Glucose 249 H 05/14/21 05:17: POC Glucose 241 H 05/14/21 06:00: WBC 16.3 H, RBC 4.34 L, Hgb 13.4, Hct 40.5, MCV 93.3, MCH 30.9, MCHC 33.1, RDW Std Deviation 43.4, RDW Coeff of Armin 12.5, Plt Count 201, MPV 9.9, Immature Gran % (Auto) 0.600, Neut % (Auto) 85.2 H, Lymph % (Auto) 8.4 L, [place] % (Auto) 5.6, Eos % (Auto) 0.0, Baso % (Auto) 0.2, Absolute Neuts (auto) 13.9 H, Absolute Lymphs (auto) 1.38, Nucleated RBC % 0 05/14/21 06:00: Sodium 136, Potassium 3.1 L, Chloride 100, Carbon Dioxide 29.0, Anion Gap 7, BUN 13, Creatinine 1.05, Estim Creat Clear Calc 81.11, Est GFR (MDRD) Af Amer 94, Est GFR (MDRD) Non-Af 78, BUN/Creatinine Ratio 12.4, Glucose 209 H, Calcium 9.2, Total Bilirubin 1.00, AST 25, ALT 38, Alkaline Phosphatase 62, Total Protein 7.6, Albumin 4.0, Globulin 3.6, Albumin/Globulin Ratio 1.1, Lipase 5830 H Radiography Diagnostic Testing: Radiology Impression Abdomen Ultrasound 05/13/21 12:55 IMPRESSION: Fatty infiltration of the liver. The pancreas is obscured due to overlying bowel gas. Electronically Signed: Brendan Ty MD at 14:20 EDT , Service support , KUB X-Ray 05/13/21 12:55 IMPRESSION: Nonspecific bowel gas pattern. Electronically Signed: Brendan Ty MD at 14:22 EDT , Service support , Physical Exam Const alert Constitutional Narrative: Itching his feet continuously during her encounter. Resp normal respiratory effort, no retractions, no use of accessory muscles and clear to auscultation bilaterally Cardio regular rate, regular rhythm, S1 normal heart sound and S2 normal heart sound GI soft to palpation and non-distended GI Narrative: Diffusely tender but less so than on the 19th Extremity normal to inspection Skin Skin Narrative: Dry skin on feet and ankles. No tinea pedis appreciated. No erythema noted. Neuro Sensorium / Orientation: awake and alert Assessment & Plan Assessment/Plan (1) Pancreatitis: QUALIFIERS: Chronicity: acute Pancreatitis type: unspecified pancreatitis type Acute pancreatitis complication: no infection or necrosis Qualified Code(s): K85.90 - Acute pancreatitis without necrosis or infection, unspecified PLAN: 1. Acute pancreatitis Lipase up today to 5830 Patient states that he had a couple of [place] light on Monday despite previously denying denies alcohol consumption IV fluids, pain control and antiemetics Ultrasound showed pain infiltration of the liver. Pancreas was obscured. MRCP performed, results pending. 2. Abdominal pain Secondary to #1 No imaging performed emergency room. Abdominal x-ray unremarkable 3. Diabetes mellitus type 2 Continue basal insulin and sliding scale insulin 4. Seizure disorder Continue with the levetiracetam 5. VTE prophylaxis with enoxaparin Charges/Coding Visit Charges Inpatient E&M: 75019 Subs Hosp L2
--- NOTE | 2021-05-14 11:55 | CASEMGMT ---
Pt screened with [facility] Palliative Care Screening Tool due to strata 3, pt did not meet criteria.
--- NOTE | 2021-05-14 11:59 | CASEMGMT ---
Social Work Note SW reviewed chart. Pt with diagnosis of Pancreatitis and does have Hx of ETOH use. Pt initially denied recent ETOH use but does state now he had couple Coors Light on Monday. SW in to speak with pt. SW introduced self and role at [facility]. Pt is alert and orientated. Pt states he had two beers/Coors Light on Monday. SW asked pt if his ETOH use is related to his Pancreatis. Pt states not sure, it could've been the chicken I ate the other day. Pt states I am done drinking though. SW asked pt if he wanted any ETOH resources and pt denied. Pt states I can quit on my own. Pt denied any use/abuse of any other substances. Pt states I will need a ride home though. SW spoke with pt about transportation options including [facility] (if available) and pt calling his insurance ([employer]). Pt states I called my blood bank coordinator through [employer] and she said she would work on it, but I don't have hope that she will do it. SW asked pt who is Barrel Repairer is. Pt provided [employer] card with Caroline Saravia listed as Barrel Repairer. Pt also mentioned that he uses [employer]. Pt states it has worked out before that my insurance will provide a ride home so I am sure it will work out again. Pt denied additional needs or concerns at this time. Pt is stating he will need transportation home. SW spoke with pt about transportation options. This options include: 1. [facility] (if Available) 2. Pt calling his insurance ([employer]) on day of discharge and requesting ride. 3. Pt has stated that he has used [facility] (through [employer]) before. Pt was instructed to call his insurance on day of discharge for a ride home. Carmel Trujillo ION IMPLANT MACHINE OPERATOR, NICKEL OPERATOR
[2021-05-14 12:01] LABS: Bedside Glucose 159 mg/dL (70-110)
[2021-05-14] MEDS: Acetaminophen 500 MG Tablet 1000 MG PO ×2 (14:16→22:31)
--- NOTE | 2021-05-14 14:55 | CT_ITS ---
STUDY: CT ABDOMEN AND PELVIS WITH CONTRAST REASON FOR EXAM: Male, 56 years old. pancreatitis. abdominal pain RADIATION DOSAGE (If Supplied By Facility): CTDIvol = ( 16.51 ) mGy, DLP = ( 1090.42 ) mGycm TECHNIQUE: Transaxial images were obtained from the dome of the diaphragm to the symphysis pubis without oral contrast. Oral and amp; IV Gastrografin and amp; 100mL Isovue-300 was administered. Sagittal and coronal images were reconstructed. Individualized dose optimization techniques were used for this CT. COMPARISON: 12/30/2020 FINDINGS: Some bibasilar atelectasis. The visualized portions of the heart are within normal limits. Normal liver. There is non-visualization of the gallbladder, which may be secondary to either contraction or a prior cholecystectomy. Normal spleen. There is diffuse enlargement of the pancreas with cristina-pancreatic edema suggesting acute pancreatitis. No loculated fluid collection to suggest pseudocyst or abscess. There is a 2 cm area of decreased attenuation within the head of the pancreas worrisome for an area of necrotizing pancreatitis. Normal bilateral adrenal glands. Normal right kidney. Normal left kidney. Normal visualized stomach. Normal small intestine. Normal colon. The appendix is visualized and appears normal. Normal abdominal aorta. Normal inferior vena cava. Normal retroperitoneum. Normal urinary bladder. Small amount of free fluid within the left paracolic gutter and in the pelvis. Normal abdominal wall. Normal osseous structures. CT/Abdomen/Pelvis WITH Contrast IMPRESSION: Acute pancreatitis with a 2 cm area of necrotizing pancreatitis in the head of the pancreas. No pseudocyst or abscess. Electronically Signed: Elmer Mcdaniel MD at 18:05 EDT Tel , Service support ,
[2021-05-14] MEDS: Ondansetron 4 MG/2 ML Vial IV (15:07)
[2021-05-14 16:01] LABS: Bedside Glucose 158 mg/dL (70-110)
[2021-05-14 18:11] LABS: Bedside Glucose 181 mg/dL (70-110)
[2021-05-14] MEDS: Amitriptyline 25 MG Tablet PO (22:31)
[2021-05-15] VITALS (7 sets, daily range): BP systolic 149–159; BP diastolic 97–98; PULSE 89–101; RESP 16–24; TEMP 36.6–37.6; O2SAT 94–95
[2021-05-15 00:01] LABS: Bedside Glucose 170 mg/dL (70-110)
[2021-05-15] MEDS: 0.9% Saline Lock 10 ML Syringe IV ×4 (02:35→22:54)
[2021-05-15] MEDS: Ketorolac 30 MG/ML Syringe IV ×4 (02:35→22:50)
[2021-05-15] MEDS: Lactated Ringers 1,000 ML 200 ML IV ×2 (03:41→08:52)
[2021-05-15] MEDS: Acetaminophen 500 MG Tablet 1000 MG PO ×3 (06:17→20:48)
[2021-05-15 06:50] LABS: Bedside Glucose 168 mg/dL (70-110)
[2021-05-15 07:12] LABS: Absolute Lymphocyte Count 2.43 X10^3/uL (0.83-4.51); Absolute Neutrophil Count 12.9 X10^3/uL (2.0-7.7); Basophil# 0.04 X10^3/uL; Basophil% 0.2 % (0-1); Eosinophil# 0.03 X10^3/uL; Eosinophils% 0.2 % (0-5); Hematocrit 37.8 % (40-54); Hemoglobin 12.5 g/dL (13.0-16.5); Lymphocyte # 2.43 X10^3/ul (0.83-4.51); Lymphocyte % 14.6 % (19-41); Mean Corp Hgb Conc 33.1 g/dL (32-36); Mean Corpuscular Hgb 30.7 pg (27.0-32.0); Mean Corpuscular Volume 92.9 fL (80-94); Monocyte# 1.11 X10^3/uL; Monocyte% 6.7 % (0-10); NRBC Flagged by Analyzer 0 % (0-5); Neutrophil # 12.93 X10^3/uL (2.7-7.7); Neutrophil % 77.8 % (47-70); Platelet Count 163 K/mm3 (150-450); RBC Distribution Width CV 12.7 % (11.6-14.6); RBC Distribution Width SD 43.4 fl (35.1-43.9); Red Blood Count 4.07 M/mm3 (4.6-6.2); White Blood Count 16.6 K/mm3 (4.4-11.0)
[2021-05-15 07:49] LABS: ALB/GLOB Ratio 0.9 RATIO (0.9-2.4); AST(SGOT) 23 U/L (15-37); Alanine Aminotransfer ALT/SGPT 28 U/L (16-61); Albumin, Serum 3.3 g/dL (3.2-5.0); Alkaline Phosphatase 54 U/L (45-117); Anion Gap 7 (5-15); BUN 9 mg/dL (7-18); BUN/Creat Ratio 9.4 RATIO (10-20); Calcium,Total 8.5 mg/dL (8.5-10.1); Chloride 103 mmol/L (98-107); Creatinine, Serum 0.96 mg/dL (0.70-1.30); EST Glomerular Filtration Rate 87 mL/min (>60); Est Glom Filt Rate - Afr Amer 105 mL/min (>60); Estimated Creatinine Clearance 88.72 ml/min; Globulin 3.6 g/dL (2.2-4.2); Glucose 158 mg/dL (74-106); Lipase 1902 U/L (73-393); Potassium 3.2 mmol/L (3.5-5.1); Protein, Total 6.9 g/dL (6.4-8.2); Sodium Level 137 mmol/L (136-145)
[2021-05-15] MEDS: Magnesium Chloride 64 MG Delay Rel.Tablet 128 MG PO (09:06)
[2021-05-15] MEDS: Lactulose 20 GM/30 ML UDC 10 GM PO (09:06)
[2021-05-15] MEDS: Gabapentin 300 MG Capsule PO ×2 (09:06→20:48)
[2021-05-15] MEDS: Mineral Oil/Petrolatum Cr 1.75oz Bottle 1 APPLIC TOPICAL (09:06)
[2021-05-15] MEDS: Pantoprazole Sodium 40 MG Tablet PO (09:07)
[2021-05-15] MEDS: Enoxaparin 40 MG/0.4 ML Syringe SC (09:07)
[2021-05-15] MEDS: levETIRAcetam 500 MG Tablet PO ×2 (09:07→20:48)
[2021-05-15] MEDS: Loratadine 10 MG Tablet PO (09:07)
[2021-05-15] MEDS: Losartan Potassium 25 MG Tablet PO (09:08)
[2021-05-15] MEDS: Aspirin 81 MG TAB.CHEW PO (09:08)
[2021-05-15] MEDS: amLODIPine 5 MG Tablet PO (09:08)
--- NOTE | 2021-05-15 11:11 | PCM.PN.HOSP ---
Subjective Subjective Abdominal pain improved with ketorolac. No further pruritis with Aquaphor. Objective Data Objective Data Vital Signs: Vital Signs Temp Pulse Resp BP Pulse Ox 37.0 C 90 18 149/98 H 94 05/15/21 08:56 05/15/21 09:00 05/15/21 08:56 05/15/21 08:56 05/15/21 08:56 Oxygen Delivery Method Room Air Weight: 91.626 kg Body Mass Index (BMI) 29.0 Intake & Output: Intake and Output for Last 24 Hours 05/13/21 05/14/21 05/15/21 23:59 23:59 23:59 Intake Total 1989 / 1989 4649.99 / 4649.99 1999 Output Total 825 / 825 1500 / 1500 950 / 950 Balance 1165 / 1165 3149.99 / 3149.99 1050 / 1050 Lab / Micro Data Result Diagrams: 05/15/21 06:35 05/15/21 06:35 Labs: Laboratory Results - last 24 hr 05/14/21 11:55: POC Glucose 159 H 05/14/21 15:56: POC Glucose 158 H 05/14/21 18:02: POC Glucose 181 H 05/14/21 23:52: POC Glucose 170 H 05/15/21 06:16: POC Glucose 168 H 05/15/21 06:35: WBC 16.6 H, RBC 4.07 L, Hgb 12.5 L, Hct 37.8 L, MCV 92.9, MCH 30.7, MCHC 33.1, RDW Std Deviation 43.4, RDW Coeff of Armin 12.7, Plt Count 163, MPV 10.0, Immature Gran % (Auto) 0.500, Neut % (Auto) 77.8 H, Lymph % (Auto) 14.6 L, [place] % (Auto) 6.7, Eos % (Auto) 0.2, Baso % (Auto) 0.2, Absolute Neuts (auto) 12.9 H, Absolute Lymphs (auto) 2.43, Nucleated RBC % 0 05/15/21 06:35: Sodium 137, Potassium 3.2 L, Chloride 103, Carbon Dioxide 27.0, Anion Gap 7, BUN 9, Creatinine 0.96, Estim Creat Clear Calc 88.72, Est GFR (MDRD) Af Amer 105, Est GFR (MDRD) Non-Af 87, BUN/Creatinine Ratio 9.4 L, Glucose 158 H, Calcium 8.5, Total Bilirubin 0.90, AST 23, ALT 28, Alkaline Phosphatase 54, Total Protein 6.9, Albumin 3.3, Globulin 3.6, Albumin/Globulin Ratio 0.9, Lipase 1902 H Radiography Diagnostic Testing: Radiology Impression MRCP 05/14/21 07:53 IMPRESSION: Normal MR Cholangiopancreatography (MRCP) after cholecystectomy. Electronically Signed: Elmer Mcdaniel MD at 11:14 EDT Tel , Service support , ADDENDUM: 05/14/21 1501 Abdomen/Pelvis CT 05/14/21 14:55 IMPRESSION: Acute pancreatitis with a 2 cm area of necrotizing pancreatitis in the head of the pancreas. No pseudocyst or abscess. Electronically Signed: Elmer Mcdaniel MD at 18:05 EDT Tel , Service support , Physical Exam Const alert Assessment & Plan Assessment/Plan (1) Pancreatitis: QUALIFIERS: Chronicity: acute Pancreatitis type: unspecified pancreatitis type Acute pancreatitis complication: no infection or necrosis Qualified Code(s): K85.90 - Acute pancreatitis without necrosis or infection, unspecified (2) Necrosis, pancreas aseptic: PLAN: 1. Acute necrotic pancreatitis pancreatitis 2cm area noted on CT. Reviewed with Dr. Bolden who recommends conservative mgmt. Lipase up today to 5830 Patient states that he had a couple of [place] light on Monday despite previously denying denies alcohol consumption IV fluids, pain control and antiemetics Ultrasound showed pain infiltration of the liver. Pancreas was obscured. Continue NPO. Advance when lipase and pain improves. Likely aseptic, but will add pip/tazo for now. 2. Abdominal pain Secondary to #1 No imaging performed emergency room. Abdominal x-ray unremarkable Also with gas, will add simethicone. 3. Diabetes mellitus type 2 Continue basal insulin and sliding scale insulin 4. Seizure disorder Continue with the levetiracetam 5. VTE prophylaxis with enoxaparin Charges/Coding Visit Charges Inpatient E&M: 94340 Subs Hosp L2
[2021-05-15 12:05] LABS: Bedside Glucose 179 mg/dL (70-110)
[2021-05-15] MEDS: 0.9% Normal Saline 1,000 ML 200 ML IV ×3 (13:12→22:47)
[2021-05-15] MEDS: Potassium Chloride Oral Tablet 20 MEQ 40 MEQ PO (13:50)
[2021-05-15 18:01] LABS: Bedside Glucose 153 mg/dL (70-110)
[2021-05-15] MEDS: HYDROmorphone 0.5 MG/0.5 ML SYRINGE IV (20:42)
[2021-05-15] MEDS: Amitriptyline 25 MG Tablet PO (20:48)
[2021-05-15 21:06] LABS: Bedside Glucose 160 mg/dL (70-110)
[2021-05-16 00:06] LABS: Bedside Glucose 165 mg/dL (70-110)
[2021-05-16] MEDS: HYDROmorphone 0.5 MG/0.5 ML SYRINGE IV ×4 (02:08→20:34)
[2021-05-16 03:29] VITALS: BP 150/99; PULSE 87; RESP 16; TEMP 36.8; O2SAT 93
[2021-05-16] MEDS: 0.9% Normal Saline 1,000 ML 200 ML IV ×4 (03:35→20:29)
[2021-05-16 05:27] LABS: Absolute Lymphocyte Count 2.98 X10^3/uL (0.83-4.51); Absolute Neutrophil Count 10.5 X10^3/uL (2.0-7.7); Basophil# 0.08 X10^3/uL; Basophil% 0.5 % (0-1); Eosinophil# 0.23 X10^3/uL; Eosinophils% 1.5 % (0-5); Hematocrit 37.1 % (40-54); Hemoglobin 12.3 g/dL (13.0-16.5); Lymphocyte # 2.98 X10^3/ul (0.83-4.51); Mean Corp Hgb Conc 33.2 g/dL (32-36); Mean Corpuscular Hgb 30.8 pg (27.0-32.0); Mean Corpuscular Volume 92.8 fL (80-94); Mean Platelet Vol. 9.3 fl (6.2-12.0); Monocyte# 1.06 X10^3/uL; Monocyte% 7.1 % (0-10); NRBC Flagged by Analyzer 0 % (0-5); Neutrophil # 10.47 X10^3/uL (2.7-7.7); Neutrophil % 70.4 % (47-70); Platelet Count 151 K/mm3 (150-450); RBC Distribution Width CV 12.7 % (11.6-14.6); RBC Distribution Width SD 43.2 fl (35.1-43.9); White Blood Count 14.9 K/mm3 (4.4-11.0)
[2021-05-16 06:11] LABS: ALB/GLOB Ratio 0.8 RATIO (0.9-2.4); AST(SGOT) 31 U/L (15-37); Alanine Aminotransfer ALT/SGPT 31 U/L (16-61); Albumin, Serum 3.3 g/dL (3.2-5.0); Alkaline Phosphatase 58 U/L (45-117); Anion Gap 10 (5-15); BUN 8 mg/dL (7-18); BUN/Creat Ratio 8.1 RATIO (10-20); Calcium,Total 8.5 mg/dL (8.5-10.1); Chloride 105 mmol/L (98-107); Creatinine, Serum 0.99 mg/dL (0.70-1.30); EST Glomerular Filtration Rate 83 mL/min (>60); Est Glom Filt Rate - Afr Amer 101 mL/min (>60); Estimated Creatinine Clearance 86.03 ml/min; Globulin 4.2 g/dL (2.2-4.2); Glucose 151 mg/dL (74-106); Lipase 1390 U/L (73-393); Potassium 3.2 mmol/L (3.5-5.1); Protein, Total 7.5 g/dL (6.4-8.2); Sodium Level 138 mmol/L (136-145)
[2021-05-16] MEDS: Insulin Lispro 100 UNIT/ML INSULN.PEN SC (06:38)
[2021-05-16] MEDS: Acetaminophen 500 MG Tablet 1000 MG PO ×3 (06:39→21:55)
[2021-05-16 06:46] LABS: Bedside Glucose 181 mg/dL (70-110)
[2021-05-16] MEDS: Aspirin 81 MG TAB.CHEW PO (08:38)
[2021-05-16 09:23] VITALS: BP 147/80; PULSE 87; RESP 20; TEMP 37; O2SAT 93
[2021-05-16] MEDS: Mineral Oil/Petrolatum Cr 1.75oz Bottle 1 APPLIC TOPICAL (09:27)
[2021-05-16] MEDS: Lactulose 20 GM/30 ML UDC 10 GM PO (09:27)
[2021-05-16] MEDS: Magnesium Chloride 64 MG Delay Rel.Tablet 128 MG PO (09:28)
[2021-05-16] MEDS: Losartan Potassium 25 MG Tablet PO (09:28)
[2021-05-16] MEDS: amLODIPine 5 MG Tablet PO (09:28)
[2021-05-16] MEDS: Loratadine 10 MG Tablet PO (09:28)
[2021-05-16] MEDS: Gabapentin 300 MG Capsule PO ×2 (09:28→21:55)
[2021-05-16] MEDS: Enoxaparin 40 MG/0.4 ML Syringe SC (09:28)
[2021-05-16] MEDS: Pantoprazole Sodium 40 MG Tablet PO (09:28)
[2021-05-16] MEDS: levETIRAcetam 500 MG Tablet PO ×2 (09:28→21:55)
[2021-05-16] MEDS: Acetaminophen 325 MG Tablet 650 MG PO (09:34)
[2021-05-16 09:38] VITALS: PULSE 87; RESP 20; O2SAT 93
[2021-05-16] MEDS: 0.9% Saline Lock 10 ML Syringe IV (12:21)
--- NOTE | 2021-05-16 12:54 | PCM.PN.HOSP ---
Subjective Subjective Feeling better slightly. No further pruritus. Increased flatus. Objective Data Objective Data Vital Signs: Vital Signs Temp Pulse Resp BP Pulse Ox 37.0 C 87 20 H 147/80 H 93 05/16/21 09:23 05/16/21 09:38 05/16/21 09:38 05/16/21 09:23 05/16/21 09:38 Oxygen Delivery Method Room Air Weight: 91.626 kg Body Mass Index (BMI) 29.0 Intake & Output: Intake and Output for Last 24 Hours 05/14/21 05/15/21 05/16/21 23:59 23:59 23:59 Intake Total 4649.99 / 4649.99 4953.34 / 4953.34 2009 Output Total 1500 / 1500 1750 / 1750 1300 / 1300 Balance 3149.99 / 3149.99 3203.34 / 3203.34 710 / 710 Lab / Micro Data Result Diagrams: 05/16/21 05:19 05/16/21 05:19 Labs: Laboratory Results - last 24 hr 05/15/21 17:52: POC Glucose 153 H 05/15/21 20:57: POC Glucose 160 H 05/15/21 23:58: POC Glucose 165 H 05/16/21 05:19: WBC 14.9 H, RBC 4.00 L, Hgb 12.3 L, Hct 37.1 L, MCV 92.8, MCH 30.8, MCHC 33.2, RDW Std Deviation 43.2, RDW Coeff of Armni 12.7, Plt Count 151, MPV 9.3, Immature Gran % (Auto) 0.500, Neut % (Auto) 70.4 H, Lymph % (Auto) 20.0, [place] % (Auto) 7.1, Eos % (Auto) 1.5, Baso % (Auto) 0.5, Absolute Neuts (auto) 10.5 H, Absolute Lymphs (auto) 2.98, Nucleated RBC % 0 05/16/21 05:19: Sodium 138, Potassium 3.2 L, Chloride 105, Carbon Dioxide 23.0, Anion Gap 10, BUN 8, Creatinine 0.99, Estim Creat Clear Calc 86.03, Est GFR (MDRD) Af Amer 101, Est GFR (MDRD) Non-Af 83, BUN/Creatinine Ratio 8.1 L, Glucose 151 H, Calcium 8.5, Total Bilirubin 0.80, AST 31, ALT 31, Alkaline Phosphatase 58, Total Protein 7.5, Albumin 3.3, Globulin 4.2, Albumin/Globulin Ratio 0.8 L, Lipase 1390 H 05/16/21 06:37: POC Glucose 181 H Physical Exam Const alert Constitutional Narrative: more comfortable. Resp normal respiratory effort, no retractions, no use of accessory muscles and clear to auscultation bilaterally Cardio regular rate, regular rhythm, S1 normal heart sound and S2 normal heart sound GI soft to palpation GI Narrative: less distended. less epigastric tenderness. Extremity normal to inspection Assessment & Plan Assessment/Plan (1) Pancreatitis: QUALIFIERS: Chronicity: acute Pancreatitis type: unspecified pancreatitis type Acute pancreatitis complication: no infection or necrosis Qualified Code(s): K85.90 - Acute pancreatitis without necrosis or infection, unspecified (2) Necrosis, pancreas aseptic: PLAN: 1. Acute necrotic pancreatitis pancreatitis 2cm area noted on CT. Reviewed with Dr. Bolden who recommends conservative mgmt. Lipase down to 1390 from peak of 5830 Patient states that he had a couple of [place] light on Monday despite previously denying denies alcohol consumption IV fluids, pain control and antiemetics Likely aseptic, but continue empiric pip/tazo for now. Consider DC abx in 48h unless infection clearly identified. Follow up with GI as outpt. Advance diet to clears. 2. Diabetes mellitus type 2 Continue basal insulin and sliding scale insulin 3. Seizure disorder Continue with the levetiracetam 4. VTE prophylaxis with enoxaparin Charges/Coding Visit Charges Inpatient E&M: 96775 Subs Hosp L2
[2021-05-16 13:25] LABS: Bedside Glucose 133 mg/dL (70-110)
[2021-05-16] MEDS: Ketorolac 30 MG/ML Syringe IV ×2 (14:02→22:01)
[2021-05-16 16:47] VITALS: BP 140/103; PULSE 78; RESP 18; TEMP 36.8; O2SAT 93
[2021-05-16 17:01] LABS: Bedside Glucose 146 mg/dL (70-110)
--- NOTE | 2021-05-16 20:56 | NURSING ---
covid 19 emergency documentation initiated 05/16/21 @ 3477
[2021-05-16 21:51] VITALS: BP 166/104; PULSE 81; RESP 18; TEMP 36.8; O2SAT 93
[2021-05-16] MEDS: Amitriptyline 25 MG Tablet PO (21:55)
[2021-05-17 00:16] LABS: Bedside Glucose 165 mg/dL (70-110)
[2021-05-17] MEDS: 0.9% Normal Saline 1,000 ML 200 ML IV ×5 (01:02→22:46)
[2021-05-17 01:11] LABS: Bedside Glucose 144 mg/dL (70-110)
[2021-05-17] MEDS: HYDROmorphone 0.5 MG/0.5 ML SYRINGE IV ×4 (03:13→20:30)
[2021-05-17 03:15] VITALS: BP 158/106; PULSE 75; RESP 18; TEMP 36.6; O2SAT 93
[2021-05-17] MEDS: Ketorolac 30 MG/ML Syringe IV ×2 (05:54→17:28)
[2021-05-17] MEDS: Acetaminophen 500 MG Tablet 1000 MG PO ×3 (05:58→20:38)
[2021-05-17 06:11] LABS: Bedside Glucose 152 mg/dL (70-110)
[2021-05-17 06:43] LABS: Absolute Lymphocyte Count 2.32 X10^3/uL (0.83-4.51); Absolute Neutrophil Count 7.6 X10^3/uL (2.0-7.7); Basophil# 0.06 X10^3/uL; Basophil% 0.5 % (0-1); Eosinophils% 2.7 % (0-5); Hematocrit 34.2 % (40-54); Hemoglobin 11.1 g/dL (13.0-16.5); Lymphocyte # 2.32 X10^3/ul (0.83-4.51); Lymphocyte % 20.8 % (19-41); Mean Corp Hgb Conc 32.5 g/dL (32-36); Mean Corpuscular Hgb 30.5 pg (27.0-32.0); Mean Platelet Vol. 9.6 fl (6.2-12.0); Monocyte% 7.2 % (0-10); NRBC Flagged by Analyzer 0 % (0-5); Neutrophil % 68.3 % (47-70); Platelet Count 150 K/mm3 (150-450); RBC Distribution Width CV 12.8 % (11.6-14.6); RBC Distribution Width SD 44.3 fl (35.1-43.9); Red Blood Count 3.64 M/mm3 (4.6-6.2); White Blood Count 11.1 K/mm3 (4.4-11.0)
[2021-05-17 07:08] LABS: ALB/GLOB Ratio 0.7 RATIO (0.9-2.4); AST(SGOT) 29 U/L (15-37); Alanine Aminotransfer ALT/SGPT 29 U/L (16-61); Albumin, Serum 2.9 g/dL (3.2-5.0); Alkaline Phosphatase 56 U/L (45-117); Anion Gap 7 (5-15); BUN 6 mg/dL (7-18); BUN/Creat Ratio 7.3 RATIO (10-20); Calcium,Total 7.7 mg/dL (8.5-10.1); Chloride 109 mmol/L (98-107); Creatinine, Serum 0.82 mg/dL (0.70-1.30); EST Glomerular Filtration Rate 103 mL/min (>60); Est Glom Filt Rate - Afr Amer 124 mL/min (>60); Estimated Creatinine Clearance 103.86 ml/min; Globulin 3.9 g/dL (2.2-4.2); Glucose 141 mg/dL (74-106); Lipase 1106 U/L (73-393); Potassium 3.2 mmol/L (3.5-5.1); Protein, Total 6.8 g/dL (6.4-8.2); Sodium Level 139 mmol/L (136-145)
[2021-05-17 09:11] VITALS: BP 165/96; PULSE 85; RESP 18; TEMP 36.7; O2SAT 93
--- NOTE | 2021-05-17 09:19 | PN.HOSP_ITS ---
Subjective Subjective Patient is a 56-year-old gentleman admitted with abdominal pain and assessment of acute necrotic pancreatitis made admitted to regular nursing floor for further management Objective Data Objective Data Vital Signs: Vital Signs Temp Pulse Resp BP Pulse Ox 98.1 F 85 18 165/96 H 93 05/17/21 09:11 05/17/21 09:11 05/17/21 09:11 05/17/21 09:11 05/17/21 09:11 Oxygen Delivery Method Room Air Weight: 91.626 kg Body Mass Index (BMI) 29.0 Intake & Output: Intake and Output for Last 24 Hours 05/15/21 05/16/21 05/17/21 23:59 23:59 23:59 Intake Total 4953.34 / 4953.34 4370 / 4370 2233.33 / 2233.33 Output Total 1750 / 1750 3300 / 3300 1700 / 1700 Balance 3203.34 / 3203.34 1070 / 1070 533.33 / 533.33 Lab / Micro Data Result Diagrams: 05/17/21 06:10 05/17/21 06:10 Labs: Laboratory Results - last 24 hr 05/16/21 13:13: POC Glucose 133 H 05/16/21 16:51: POC Glucose 146 H 05/16/21 22:00: POC Glucose 165 H 05/17/21 01:00: POC Glucose 144 H 05/17/21 06:02: POC Glucose 152 H 05/17/21 06:10: WBC 11.1 H, RBC 3.64 L, Hgb 11.1 L, Hct 34.2 L, MCV 94.0, MCH 30.5, MCHC 32.5, RDW Std Deviation 44.3 H, RDW Coeff of Armin 12.8, Plt Count 150, MPV 9.6, Immature Gran % (Auto) 0.500, Neut % (Auto) 68.3, Lymph % (Auto) 20.8, [place] % (Auto) 7.2, Eos % (Auto) 2.7, Baso % (Auto) 0.5, Absolute Neuts (auto) 7.6, Absolute Lymphs (auto) 2.32, Nucleated RBC % 0 05/17/21 06:10: Sodium 139, Potassium 3.2 L, Chloride 109 H, Carbon Dioxide 23.0, Anion Gap 7, BUN 6 L, Creatinine 0.82, Estim Creat Clear Calc 103.86, Est GFR (MDRD) Af Amer 124, Est GFR (MDRD) Non-Af 103, BUN/Creatinine Ratio 7.3 L, Glucose 141 H, Calcium 7.7 L, Total Bilirubin 0.70, AST 29, ALT 29, Alkaline Phosphatase 56, Total Protein 6.8, Albumin 2.9 L, Globulin 3.9, Albumin/Globulin Ratio 0.7 L, Lipase 1106 H Physical Exam Narrative GENERAL: cooperative HEENT: Atraumatic; EYES; Anicteric, Normal Conjunctiva NECK; supple, normal thyroid, RESPIRATORY: Diminished to auscultation CARDIOVASCULAR: Regular S1 S2, GI: soft, normoactive bowel sounds, epigastric tenderness : No Renal angle tenderness; EXTREMITIES: No edema, no clubbing, MUSCULOSKELETAL: no muscle waisting NEURO: Awake; no lateralizing signs. SKIN: No Rash PSYCH; Flat affect Assessment & Plan Assessment/Plan (1) Pancreatitis: QUALIFIERS: Chronicity: acute Pancreatitis type: unspecified pa ncreatitis type Acute pancreatitis complication: no infection or necrosis Qualified Code(s): K85.90 - Acute pancreatitis without necrosis or infection, unspecified (2) Necrosis, pancreas aseptic: PLAN: Patient is a 56-year-old gentleman admitted with abdominal pain and assessment of acute necrotic pancreatitis made admitted to regular nursing floor for further management 1. Acute necrotic pancreatitis Most likely secondary to alcohol consumption. Patient admitted to a regular nursing floor where he is currently being managed conservatively. Patient was started on clear liquid with some recurrence of his pain. We will continue to monitor. Was also empirically started on antibiotics will continue monitoring 2. Diabetes mellitus type 2 ?Patient is on long-acting insulin Lantus 10 units at bedtime this was continued held Metformin. Please on Accu-Cheks before meals and at bedtime with sliding scale coverage 3. Hypertension - Blood pressure controlled, home medications continued with dose adjustment as needed 4. Seizure disorder Continue with the levetiracetam 5. DVT prophylaxis - On enoxaparin Charges/Coding Visit Charges Inpatient E&M: 06127 Subs Hosp L2
[2021-05-17] MEDS: Magnesium Chloride 64 MG Delay Rel.Tablet 128 MG PO (09:23)
[2021-05-17] MEDS: Losartan Potassium 25 MG Tablet PO (09:23)
[2021-05-17] MEDS: Gabapentin 300 MG Capsule PO ×2 (09:24→20:39)
[2021-05-17] MEDS: Enoxaparin 40 MG/0.4 ML Syringe SC (09:24)
[2021-05-17] MEDS: Loratadine 10 MG Tablet PO (09:24)
[2021-05-17] MEDS: Aspirin 81 MG TAB.CHEW PO (09:24)
[2021-05-17] MEDS: Pantoprazole Sodium 40 MG Tablet PO (09:24)
[2021-05-17] MEDS: Ondansetron 4 MG/2 ML Vial IV (09:24)
[2021-05-17] MEDS: levETIRAcetam 500 MG Tablet PO ×2 (09:24→20:38)
[2021-05-17] MEDS: 0.9% Saline Lock 10 ML Syringe IV ×2 (09:25→13:55)
[2021-05-17] MEDS: Lactulose 20 GM/30 ML UDC 10 GM PO (09:26)
[2021-05-17] MEDS: amLODIPine 5 MG Tablet PO (09:26)
[2021-05-17 11:40] LABS: Bedside Glucose 165 mg/dL (70-110)
[2021-05-17 16:50] VITALS: O2SAT 97
[2021-05-17 17:05] LABS: Bedside Glucose 125 mg/dL (70-110)
[2021-05-17] MEDS: Amitriptyline 25 MG Tablet PO (20:38)
[2021-05-17 20:48] VITALS: BP 146/91; PULSE 79; RESP 18; TEMP 36.7; O2SAT 96
[2021-05-17 20:51] LABS: Bedside Glucose 138 mg/dL (70-110)
[2021-05-18 00:05] VITALS: BP 141/89; PULSE 82; RESP 18; TEMP 36.9; O2SAT 94
[2021-05-18 00:06] LABS: Bedside Glucose 156 mg/dL (70-110)
[2021-05-18] MEDS: DiphenhydrAMINE 25 MG Capsule PO (00:38)
[2021-05-18] MEDS: Ketorolac 30 MG/ML Syringe IV (00:42)
[2021-05-18] MEDS: 0.9% Normal Saline 1,000 ML 200 ML IV (04:04)
[2021-05-18] MEDS: HYDROmorphone 0.5 MG/0.5 ML SYRINGE IV (04:06)
[2021-05-18] MEDS: Acetaminophen 500 MG Tablet 1000 MG PO (05:59)
[2021-05-18] MEDS: Insulin Lispro 100 UNIT/ML INSULN.PEN SC (06:00)
[2021-05-18 06:04] VITALS: BP 152/95; PULSE 85; RESP 18; TEMP 36.7; O2SAT 95
[2021-05-18 06:06] LABS: Bedside Glucose 184 mg/dL (70-110)
--- NOTE | 2021-05-18 07:37 | PCM.PN.HOSP ---
Objective Data Objective Data Vital Signs: Vital Signs Temp Pulse Resp BP Pulse Ox 98.1 F 85 18 152/95 H 95 05/18/21 06:04 05/18/21 06:04 05/18/21 06:04 05/18/21 06:04 05/18/21 06:04 Oxygen Delivery Method Room Air Weight: 91.626 kg Body Mass Index (BMI) 29.0 Intake & Output: Intake and Output for Last 24 Hours 05/16/21 05/17/21 05/18/21 23:59 23:59 23:59 Intake Total 4370 / 4370 6501.08 / 6501.08 1129.25 / 1129.25 Output Total 3300 / 3300 1700 / 1700 Balance 1070 / 1070 4801.08 / 4801.08 1129.25 / 1129.25 Lab / Micro Data Result Diagrams: 05/17/21 06:10 05/17/21 06:10 Labs: Laboratory Results - last 24 hr 05/17/21 11:33: POC Glucose 165 H 05/17/21 17:01: POC Glucose 125 H 05/17/21 20:42: POC Glucose 138 H 05/17/21 23:59: POC Glucose 156 H 05/18/21 05:59: POC Glucose 184 H Physical Exam Narrative GENERAL: cooperative HEENT: Atraumatic; EYES; Anicteric, Normal Conjunctiva NECK; supple, normal thyroid, RESPIRATORY: Diminished to auscultation CARDIOVASCULAR: Regular S1 S2, GI: soft, normoactive bowel sounds, epigastric tenderness : No Renal angle tenderness; EXTREMITIES: No edema, no clubbing, MUSCULOSKELETAL: no muscle waisting NEURO: Awake; no lateralizing signs. SKIN: No Rash PSYCH; Flat affect Assessment & Plan Assessment/Plan (1) Pancreatitis: QUALIFIERS: Chronicity: acute Pancreatitis type: unspecified pancreatitis type Acute pancreatitis complication: no infection or necrosis Qualified Code(s): K85.90 - Acute pancreatitis without necrosis or infection, unspecified (2) Necrosis, pancreas aseptic: PLAN: Patient is a 56-year-old gentleman admitted with abdominal pain and assessment of acute necrotic pancreatitis made admitted to regular nursing floor for further management 1. Acute necrotic pancreatitis Most likely secondary to alcohol consumption. Patient admitted to a regular nursing floor where he is currently being managed conservatively. Patient was started on clear liquid with some recurrence of his pain. We will continue to monitor. Was also empirically started on antibiotics will continue monitoring 2. Diabetes mellitus type 2 ?Patient is on long-acting insulin Lantus 10 units at bedtime this was continued held Metformin. Please on Accu-Cheks before meals and at bedtime with sliding scale coverage 3. Hypertension - Blood pressure controlled, home medications continued with dose adjustment as needed 4. Seizure disorder Continue with the levetiracetam 5. DVT prophylaxis - On enoxaparin
[2021-05-18] MEDS: Magnesium Chloride 64 MG Delay Rel.Tablet 128 MG PO (08:16)
[2021-05-18] MEDS: 0.9% Saline Lock 10 ML Syringe IV ×2 (08:16→10:33)
[2021-05-18] MEDS: HYDROmorphone 1 MG/ML Syringe IV (08:16)
[2021-05-18] MEDS: amLODIPine 5 MG Tablet PO (08:17)
[2021-05-18] MEDS: Lactulose 20 GM/30 ML UDC 10 GM PO (08:17)
[2021-05-18] MEDS: Loratadine 10 MG Tablet PO (08:17)
[2021-05-18] MEDS: Losartan Potassium 25 MG Tablet PO (08:17)
[2021-05-18] MEDS: levETIRAcetam 500 MG Tablet PO (08:17)
[2021-05-18] MEDS: Pantoprazole Sodium 40 MG Tablet PO (08:17)
[2021-05-18] MEDS: Aspirin 81 MG TAB.CHEW PO (08:18)
[2021-05-18] MEDS: Enoxaparin 40 MG/0.4 ML Syringe SC (08:18)
[2021-05-18 08:23] VITALS: BP 156/98; PULSE 64; RESP 18; TEMP 36.4; O2SAT 96
--- NOTE | 2021-05-18 10:32 | DS.PCM_ITS ---
Providers Date of Admission: 05/13/21 Primary Care Physician: TORY Aldridge Reason For Visit: PANCREATITIS Diagnosis Discharge Diagnosis (1) Pancreatitis: Status: Acute Code(s): K85.90 - Acute pancreatitis without necrosis or infection, unspecified Qualifiers: Chronicity: acute Pancreatitis type: unspecified pancreatitis type Acute pancreatitis complication: no infection or necrosis Qualified Code(s): K85.90 - Acute pancreatitis without necrosis or infection, unspecified (2) Necrosis, pancreas aseptic: Status: Acute Code(s): K86.89 - Other specified diseases of pancreas Medications at Discharge Home Medications nitroglycerin 0.4 mg SUBLINGUAL Q5M PRN 07/15/13 metformin 500 mg PO BID 11/28/13 loratadine 10 mg PO DAILY 06/01/17 amitriptyline 25 mg tablet 25 mg PO QHS 07/03/18 cholecalciferol (vitamin D3) 1 cap PO DAILY 11/09/18 aspirin 81 mg chewable tablet 81 mg PO DAILY@0800 #30 tab 04/09/20 magnesium oxide 400 mg (241.3 mg magnesium) tablet 400 mg PO BID #60 tab 04/09/20 hydrochlorothiazide 25 mg tablet 25 mg PO DAILY #30 tab 06/05/20 pantoprazole 40 mg tablet,delayed release 40 mg PO DAILY #90 tab 07/03/20 pravastatin 40 mg tablet 40 mg PO DAILY #30 tab 07/03/20 gabapentin 300 mg capsule 300 mg PO BID cap 10/06/20 amlodipine 5 mg PO DAILY 12/30/20 insulin glargine 10 unit SQ QHS 12/30/20 losartan 25 mg PO DAILY 12/30/20 acetaminophen 650 mg PO Q6H PRN PRN #30 tablet 01/01/21 lactulose 10 gram/15 mL oral solution 10 g PO DAILY #473 ml 04/22/21 levetiracetam 500 mg tablet 500 mg PO BID #60 tab 04/22/21 hydromorphone [Dilaudid] 4 mg PO Q6H PRN 5 Days #20 tab 05/18/21 Hospital Course Summary of Care Provided Minutes Spent on Discharge: 35 Hospital Course: Patient is a 56-year-old gentleman admitted with abdominal pain and assessment of acute necrotic pancreatitis made admitted to regular nursing floor for further management 1. Acute necrotic pancreatitis Most likely secondary to alcohol consumption. Patient admitted to a regular nursing floor where he is currently being managed conservatively. Patient was started on clear liquid with some recurrence of his pain. We will continue to monitor. Was also empirically started on antibiotics will continue monitoring -2420: Condition stabilized discharged home with pain medications. 2. Diabetes mellitus type 2 ?Patient is on long-acting insulin Lantus 10 units at bedtime this was continued held Metformin. Please on Accu-Cheks before meals and at bedtime with sliding scale coverage 3. Hypertension - Blood pressure controlled, home medications continued with dose adjustment as needed 4. Seizure disorder Continue with the levetiracetam 5. DVT prophylaxis - On enoxaparin Physical Exam Narrative GENERAL: cooperative HEENT: Atraumatic; EYES; Anicteric, Normal Conjunctiva NECK; supple, normal thyroid, RESPIRATORY: Diminished to auscultation CARDIOVASCULAR: Regular S1 S2, GI: soft, normoactive bowel sounds, : No Renal angle tenderness; EXTREMITIES: No edema, no clubbing, MUSCULOSKELETAL: no muscle waisting NEURO: Awake; no lateralizing signs. SKIN: No Rash PSYCH; Flat affect Weight / BMI Weight Weight: 91.626 kg Body Mass Index (BMI) 29.0 ABG / Lab / Microbiology Data Result Diagrams: 05/17/21 06:10 05/17/21 06:10 Laboratory: Laboratory Results - last 24 hr 05/17/21 11:33: POC Glucose 165 H 05/17/21 17:01: POC Glucose 125 H 05/17/21 20:42: POC Glucose 138 H 05/17/21 23:59: POC Glucose 156 H 05/18/21 05:59: POC Glucose 184 H D/C Instructions Discharge Diet: No restrictions Discharge Activity: Return to Normal Activity Call your doctor if you observe: Fever of 101 or Higher, Shortness of breath, Fainting spells, Chest pain and Uncontrolled pain Meaningful Use Info Meaningful Use Diagnoses (Choose all that apply): None applicable Discharge Plan Admission Admit Date/Time: 05/13/21 12:55 Primary Reason for Your Visit: Acute pancreatitis Attending Provider: Mg Patel Primary Care Provider: Souleymane Kelly NP Instructions Patient Instructions: ED Pancreatitis Discharge Orders/Prescriptions Prescriptions: New hydromorphone [Dilaudid] 4 mg tablet 4 mg PO Q6H PRN (Reason: pain) 5 Days Qty: 20 RF: 0 Continued amitriptyline 25 mg tablet 25 mg PO QHS RF: 0 gabapentin 300 mg capsule 300 mg PO BID RF: 0 levetiracetam 500 mg tablet 500 mg PO BID Qty: 60 RF: 4 nitroglycerin 0.4 MG tablet 0.4 mg sublingual Q5M PRN (Reason: Chest Pain) RF: 0 metformin 500 MG tablet 500 mg PO BID RF: 0 loratadine 10 MG capsule 10 mg PO DAILY RF: 0 cholecalciferol (vitamin D3) 5,000 capsule 1 cap PO DAILY RF: 0 insulin glargine 100 UNIT/ML solution 10 unit SQ QHS RF: 0 losartan 50 MG tablet 25 mg PO DAILY RF: 0 amlodipine 10 MG tablet 5 mg PO DAILY RF: 0 acetaminophen 325 MG tablet 650 mg PO Q6H PRN PRN (Reason: Pain Score 1-10/Temp > 100.7 F) Qty: 30 RF: 1 aspirin 81 mg tablet,chewable 81 mg PO DAILY@0800 Qty: 30 RF: 11 magnesium oxide 400 mg (241.3 mg magnesium) tablet 400 mg PO BID Qty: 60 RF: 11 hydrochlorothiazide 25 mg tablet 25 mg PO DAILY Qty: 30 RF: 11 pantoprazole 40 mg tablet,delayed release (DR/EC) 40 mg PO DAILY Qty: 90 RF: 0 pravastatin 40 mg tablet 40 mg PO DAILY Qty: 30 RF: 11 lactulose 10 gram/15 mL solution 10 g PO DAILY Qty: 473 RF: 3 Referrals / Follow Up: Souleymane Kelly NP, [employer] [Primary Care Provider] - In 1 Week Disposition Disposition (needs filled in before D/C Order can be placed): Home, Self Care Charges/Coding Visit Charges Inpatient E&M: 01879 Disch Hosp
[2021-05-18] MEDS: Gabapentin 300 MG Capsule PO (10:33)
[2021-05-18 12:48] VITALS: BP 156/98; PULSE 71; RESP 18; TEMP 36.9; O2SAT 99
--- NOTE | 2021-05-19 13:50 | CASEMGMT ---
UZMA BAKER Discharge Follow Up Phone Call: LEONARDE: 13 Strata: 3 Call Date: 05/19/21 Discharge Date: 05/18/21 Time of Call:1350 Duration:<1 min Admitting Dx:pancreatitis RN SAMUEL attempted to complete follow up phone call after recent hospitalization. Left message on identified voicemail of purpose of call and call back number.
== END 2021-05-18 13:43 | disposition home or self-care (01) | DRG 440 ==
LOC: ED 13:05 → MS3 13:55
PROVIDERS: Emergency Provider Emergency Medicine; PCP Nurse Practitioner Family; Visit Provider Internal Medicine
DX: K85.21 Alcohol induced acute pancreatitis with uninfected necrosis (principal); G40.909 Epilepsy, unspecified, not intractable, without status epilepticus; E11.9 Type 2 diabetes mellitus without complications; I10 Essential (primary) hypertension; E78.5 Hyperlipidemia, unspecified; H40.9 Unspecified glaucoma; K21.9 Gastro-esophageal reflux disease without esophagitis; F43.10 Post-traumatic stress disorder, unspecified; Z79.82 Long term (current) use of aspirin; Z79.4 Long term (current) use of insulin; Z79.899 Other long term (current) drug therapy; I25.2 Old myocardial infarction; Z87.11 Personal history of peptic ulcer disease; Z87.891 Personal history of nicotine dependence; Z87.19 Personal history of other diseases of the digestive system; Z90.49 Acquired absence of other specified parts of digestive tract
CPT/HCPCS: 36415; 74018; 74177; 74181; 76705; 80053; 82962; 83690; 84484; 85025; 93005; 99251; 99285; J7030; J7050; J7120; Q9967; A4216; G0463; J2405

== ENCOUNTER 2021-08-02 14:20 | Emergency (ER) | payer MEDICARE, MEDICAID, SELFPAY ==
[2021-08-02 14:22] VITALS: BP 153/97; PULSE 109; RESP 18; TEMP 36.3; O2SAT 99; BMI 29.4
[2021-08-02 16:09] LABS: Absolute Neutrophil Count 7.3 X10^3/uL (2.0-7.7); Basophil# 0.06 X10^3/uL; Basophil% 0.5 % (0-1); Eosinophils% 1.7 % (0-5); Hematocrit 43.7 % (40-54); Hemoglobin 14.7 g/dL (13.0-16.5); Lymphocyte % 30.3 % (19-41); Mean Corp Hgb Conc 33.6 g/dL (32-36); Mean Corpuscular Hgb 30.2 pg (27.0-32.0); Mean Corpuscular Volume 89.9 fL (80-94); Mean Platelet Vol. 10.1 fl (6.2-12.0); Monocyte# 0.68 X10^3/uL; Monocyte% 5.7 % (0-10); NRBC Flagged by Analyzer 0 % (0-5); Neutrophil # 7.28 X10^3/uL (2.7-7.7); Neutrophil % 61.4 % (47-70); Platelet Count 202 K/mm3 (150-450); RBC Distribution Width CV 12.3 % (11.6-14.6); RBC Distribution Width SD 40.6 fl (35.1-43.9); Red Blood Count 4.86 M/mm3 (4.6-6.2); White Blood Count 11.9 K/mm3 (4.4-11.0)
[2021-08-02 16:22] LABS: Anion Gap 6 (5-15); BUN 20 mg/dL (7-18); BUN/Creat Ratio 13.3 RATIO (10-20); Calcium,Total 9.7 mg/dL (8.5-10.1); Chloride 99 mmol/L (98-107); EST Glomerular Filtration Rate 51 mL/min (>60); Est Glom Filt Rate - Afr Amer 62 mL/min (>60); Estimated Creatinine Clearance 56.78 ml/min; Glucose 198 mg/dL (74-106); Potassium 3.7 mmol/L (3.5-5.1); Sodium Level 133 mmol/L (136-145)
--- NOTE | 2021-08-02 16:45 | ED.VIS.GI ---
HPI HPI - GI History of Present Illness Chief Complaint: Abd Pain Informant: patient Narrative Narrative: Waxing and waning right side abdominal pain since yesterday. Cholecystectomy year ago by Dr. Felix due to poor functioning gallbladder disease with postprandial pain. He states he took Pepto-Bismol with improvement of pain in his mid abdomen however still has pain on the right side. Denies any urinary symptoms. Denies fevers. Denies history of kidney stones. Pain would cause nausea. However he did take leftover Zofran with improvement of nausea. Reports pancreatitis in the past secondary to previous alcohol use. He states was not significant however due to his diagnosis he stopped drinking. Denies fevers. Denies vomiting or diarrhea. Denies history of gastric ulcers or kidney injury. From medication list he is on naproxen however states he did not take it this morning. He takes it as needed. [facility] Medical History Acute pancreatitis Anxiety and depression Cancer Chronic pain Constipation Diabetes mellitus type 2 in nonobese Essential (primary) hypertension Former tobacco use Gastric ulcer Gastric ulcer GERD (gastroesophageal reflux disease) GI bleed Glaucoma Glaucoma Hyperlipidemia Neck pain Pancreatitis PSA elevation PTSD (post-traumatic stress disorder) PTSD (post-traumatic stress disorder) Seizure disorder Serum ammonia increased TIA (transient ischemic attack) Type 2 diabetes mellitus Vision loss of left eye Vision loss of right eye Home Medications nitroglycerin 0.4 mg SUBLINGUAL Q5M PRN 07/15/13 [History Last Taken 08/22/15] metformin 500 mg PO BID 11/28/13 [History Last Taken 06/06/19] loratadine 10 mg PO DAILY 06/01/17 [History Last Taken 06/06/19] amitriptyline 25 mg tablet 25 mg PO QHS 07/03/18 [History Last Taken 06/06/19] cholecalciferol (vitamin D3) 1 cap PO DAILY 11/09/18 [History Last Taken 06/06/19] aspirin 81 mg chewable tablet 81 mg PO DAILY@0800 #30 tab 04/09/20 [Rx Last Taken Unknown] magnesium oxide 400 mg (241.3 mg magnesium) tablet 400 mg PO BID #60 tab 04/09/20 [Rx Last Taken Unknown] hydrochlorothiazide 25 mg tablet 25 mg PO DAILY #30 tab 06/05/20 [Rx Last Taken Unknown] pantoprazole 40 mg tablet,delayed release 40 mg PO DAILY #90 tab 07/03/20 [Rx Last Taken Unknown] pravastatin 40 mg tablet 40 mg PO DAILY #30 tab 07/03/20 [Rx Last Taken Unknown] gabapentin 300 mg capsule 300 mg PO BID cap 10/06/20 [History Last Taken Unknown] amlodipine 5 mg PO DAILY 12/30/20 [History Last Taken Unknown] insulin glargine 10 unit SQ QHS 12/30/20 [History Last Taken Unknown] losartan 25 mg PO DAILY 12/30/20 [History Last Taken Unknown] acetaminophen 650 mg PO Q6H PRN PRN #30 tablet 01/01/21 [Rx Last Taken Unknown] lactulose 10 gram/15 mL oral solution 10 g PO DAILY #473 ml 04/22/21 [Rx Last Taken Unknown] levetiracetam 500 mg tablet 500 mg PO BID #60 tab 04/22/21 [Rx Last Taken Unknown] hydromorphone [Dilaudid] 4 mg PO Q6H PRN 5 Days #20 tab 05/18/21 [Rx Last Taken Unknown] oxycodone-acetaminophen [Percocet] 1 tab PO Q6H PRN 3 Days #12 tab 08/02/21 [Rx Last Taken Unknown] Allergy/AdvReac Type Severity Reaction Status Date / Time lisinopril Allergy Angioedema Verified 08/02/21 14:25 cyclobenzaprine AdvReac Severe Skin Verified 08/02/21 14:25 crawling hydrocodone bitartrate AdvReac Itching Verified 08/02/21 14:25 [From Vicodin] morphine AdvReac Itching Verified 08/02/21 14:25 tramadol AdvReac Itching Verified 08/02/21 14:25 Family History Mother Heart disease Sister Cerebral aneurysm Surgical History History of cholecystectomy (12/2013) History of left heart catheterization (10/31/11) Social History Smoking Status: Former smoker Tobacco: How many years used: 7 Electronic Cigarette Use: not used alcohol intake: current alcohol intake frequency: holidays/special occasions only Alcohol type: beer details: states a couple beers every now on then, does not have daily substance use type: does not use ROS ROS ED Constitutional Constitutional ED: Denies chills, fever(s) or sweats Eyes Eyes: Denies change in vision ENT ENT ED: Denies dysphagia or sore throat Cardiovascular Cardiovascular: Denies chest pain, leg edema, palpitations or racing heartbeat Respiratory/Chest Respiratory/Chest: Denies cough, dyspnea or dyspnea on exertion Gastrointestinal Gastrointestinal: Reports abdominal pain; Denies diarrhea, nausea or vomiting Genitourinary Genitourinary ED: Denies dysuria, hematuria or urinary frequency Musculoskeletal Musculoskeletal: Reports back pain; Denies extremity pain or neck pain Integumentary Denies rash or wounds Neurologic Neurologic: Denies headache(s), paresthesias or weakness EXAM Physical Exam Const Vital Signs: 08/02/21 14:22 08/02/21 19:15 Temperature 97.4 F L Temperature Source Temporal Pulse Rate 109 H 95 Respiratory Rate 18 18 Blood Pressure 153/97 H 146/100 H Blood Pressure Mean 115 115 Pulse Ox 99 97 Oxygen Delivery Method Room Air Room Air Positive well nourished and well developed General Appearance ED: well developed and NAD HEENT Reports moist mucous membranes normocephalic and atraumatic Eyes PERRL, EOMs intact bilaterally and conjunctivae normal General Eye ED: Yes normal appearance of both eyes Neck no lymphadenopathy and supple General: Negative for tenderness Chest Wall Chest: Negative for tenderness Resp normal respiratory effort and normal air movement Effort and Inspection: symmetric chest movement; Negative for respiratory distress Cardio regular rate, regular rhythm and no murmurs Peripheral Pulses: pulses 2+ throughout GI normal to inspection, nondistended, normoactive bowel sounds and non-tender GI Narrative: Negative Holder's or McBurney's tenderness. No guarding or rebound. Palpation: Negative for guarding or rebound tenderness present Back/Spine no CVA tenderness and no thoracic nor lumbar tenderness Back/Spine Narrative: No rash of the right flank region. Extremity normal to inspection General Extremety ED: Negative for edema or tenderness General Extremity: Negative for edema Neuro oriented x3 and no sensory deficits noted Sensorium / Orientation: awake and alert Skin no rashes or lesions noted and no wounds MDM MDM MDM Narrative Medical decision making narrative: Patient with a nonsurgical abdomen. Pain on the right side however did have pain in the middle improved with Pepto-Bismol. Renal stone protocol initiated however lipase and LFTs added to the basic labs ordered from triage. White count 11.9. Initially given Toradol for pain with CT scan ordered. 1800: Pain increasing when he went to CT. Dilaudid was ordered. CT scan notes pancreatic head inflammatory findings. He had lipase returned at 988. Normal liver enzymes. Discussed with patient findings. His last flare was in April 3 months ago requiring hospitalization. He states he would socially drink minimally prior to that. He has not drank since then. He has had other pancreatic flares in the past. He states he would like to try outpatient treatment. He understands clear liquid diet. He has been tolerating oral intake. Creatinine was up at 1.5 up from previous. He is given additional IV fluids in the ED. 1930: Pain controlled no vomiting in the ED. Tolerating oral intake. He would like to go home. Given prescription of Percocet. Side effects of the other opiates were itching so not true allergies. Percocets with less side effects with itching. He will continue liquid clear diet for next 2 days advance as tolerated. Return precautions discussed. All questions answered. Patient is being discharged under pandemic conditions under declared global, national and state disaster activation, with limited medical resources. Patient and community understands this. Results discussed in layman's terms to the patient satisfaction. All questions answered in layman's terms. Patient understands importance of follow-up care as directed. Patient has been instructed to return to the ED immediately if new symptoms, problems, or questions occur. We mutually agree with the plan of disposition. The patient understand that they may call or return with any questions or concerns at any time. Lab Data Attestation: I reviewed the patient's lab results. Labs: Laboratory Results - last 24 hr 08/02/21 08/02/21 08/02/21 16:00 16:00 16:00 WBC 11.9 H RBC 4.86 Hgb 14.7 Hct 43.7 MCV 89.9 MCH 30.2 MCHC 33.6 RDW Std Deviation 40.6 RDW Coeff of Armin 12.3 Plt Count 202 MPV 10.1 Immature Gran % (Auto) 0.400 Neut % (Auto) 61.4 Lymph % (Auto) 30.3 [place] % (Auto) 5.7 Eos % (Auto) 1.7 Baso % (Auto) 0.5 Absolute Neuts (auto) 7.3 Absolute Lymphs (auto) 3.60 Nucleated RBC % 0 Sodium 133 L Potassium 3.7 Chloride 99 Carbon Dioxide 28.0 Anion Gap 6 BUN 20 H Creatinine 1.50 H Estim Creat Clear Calc 56.78 Est GFR (MDRD) Af Amer 62 Est GFR (MDRD) Non-Af 51 L BUN/Creatinine Ratio 13.3 Glucose 198 H Calcium 9.7 Total Bilirubin 0.40 Direct Bilirubin 0.12 AST 21 ALT 39 Alkaline Phosphatase 73 Total Protein 8.5 H Albumin 4.3 Globulin 4.2 Lipase 988 H Urine Color Urine Clarity Urine pH Ur Specific [place] Urine Protein Urine Glucose (UA) Urine Ketones Urine Occult Blood Urine Nitrite Urine Bilirubin Urine Urobilinogen Ur Leukocyte Esterase Urine RBC Urine WBC Ur Squamous Epith Cells Urine Bacteria Urine Mucus 08/02/21 19:32 WBC RBC Hgb Hct MCV MCH MCHC RDW Std Deviation RDW Coeff of Armin Plt Count MPV Immature Gran % (Auto) Neut % (Auto) Lymph % (Auto) [place] % (Auto) Eos % (Auto) Baso % (Auto) Absolute Neuts (auto) Absolute Lymphs (auto) Nucleated RBC % Sodium Potassium Chloride Carbon Dioxide Anion Gap BUN Creatinine Estim Creat Clear Calc Est GFR (MDRD) Af Amer Est GFR (MDRD) Non-Af BUN/Creatinine Ratio Glucose Calcium Total Bilirubin Direct Bilirubin AST ALT Alkaline Phosphatase Total Protein Albumin Globulin Lipase Urine Color Yellow Urine Clarity Clear Urine pH 5.0 Ur Specific [place] 1.020 Urine Protein 30 H Urine Glucose (UA) 100 H Urine Ketones Negative Urine Occult Blood 10 H Urine Nitrite Negative Urine Bilirubin Negative Urine Urobilinogen Normal Ur Leukocyte Esterase Negative Urine RBC 0 SEEN Urine WBC 0 SEEN Ur Squamous Epith Cells 0 SEEN Urine Bacteria RARE Urine Mucus 0 SEEN Radiography Diagnostic Testing: Clinical Impression(s) from Imaging Studies Abdomen/Pelvis CT 08/02/21 17:25 IMPRESSION: Diffuse fatty infiltration of the liver, no discrete lesion Pancreatic head is poorly defined with smudging of the borders and of the peripancreatic fat. Focal diverticulitis suspected in the pancreatic head. No perforation, phlegmon or abscess noted. Scattered colonic diverticulosis Normal appendix visualized Electronically Signed: Kevin King MD at 17:52 EST , Service support , Discharge Plan Triage Chief Complaint: Abd Pain ED Provider: Dakota Koenig Dx/Rx/DC Orders Clinical Impression: Acute pancreatitis, Abdominal pain, AGA (acute kidney injury) Instructions: Abdominal Pain, ED Pancreatitis Prescriptions: New oxycodone-acetaminophen [Percocet] 5-325 mg tablet 1 tab PO Q6H PRN (Reason: pain) 3 Days Qty: 12 RF: 0 No Action amitriptyline 25 mg tablet 25 mg PO QHS RF: 0 gabapentin 300 mg capsule 300 mg PO BID RF: 0 levetiracetam 500 mg tablet 500 mg PO BID Qty: 60 RF: 4 nitroglycerin 0.4 MG tablet 0.4 mg sublingual Q5M PRN (Reason: Chest Pain) RF: 0 metformin 500 MG tablet 500 mg PO BID RF: 0 loratadine 10 MG capsule 10 mg PO DAILY RF: 0 cholecalciferol (vitamin D3) 5,000 capsule 1 cap PO DAILY RF: 0 insulin glargine 100 UNIT/ML solution 10 unit SQ QHS RF: 0 losartan 50 MG tablet 25 mg PO DAILY RF: 0 amlodipine 10 MG tablet 5 mg PO DAILY RF: 0 acetaminophen 325 MG tablet 650 mg PO Q6H PRN PRN (Reason: Pain Score 1-10/Temp > 100.7 F) Qty: 30 RF: 1 hydromorphone [Dilaudid] 4 mg tablet 4 mg PO Q6H PRN (Reason: pain) 5 Days Qty: 20 RF: 0 aspirin 81 mg tablet,chewable 81 mg PO DAILY@0800 Qty: 30 RF: 11 magnesium oxide 400 mg (241.3 mg magnesium) tablet 400 mg PO BID Qty: 60 RF: 11 hydrochlorothiazide 25 mg tablet 25 mg PO DAILY Qty: 30 RF: 11 pantoprazole 40 mg tablet,delayed release (DR/EC) 40 mg PO DAILY Qty: 90 RF: 0 pravastatin 40 mg tablet 40 mg PO DAILY Qty: 30 RF: 11 lactulose 10 gram/15 mL solution 10 g PO DAILY Qty: 473 RF: 3 Primary Care Provider: Souleymane Kelly NP Referrals: Friend,DO Taras [STAFF PHYSICIAN] - 1 Week Blaz,Souleymane SENIOR PROGRAM ANALYST, SENIOR PROGRAM ANALYST-C [Primary Care Provider] - Disposition Disposition: Home, Self Care Discharge Date/Time: 08/02/21 19:49
[2021-08-02 17:02] LABS: AST(SGOT) 21 U/L (15-37); Alanine Aminotransfer ALT/SGPT 39 U/L (16-61); Albumin, Serum 4.3 g/dL (3.2-5.0); Alkaline Phosphatase 73 U/L (45-117); Bilirubin, Direct 0.12 mg/dL (0.00-0.30); Globulin 4.2 g/dL (2.2-4.2); Lipase 988 U/L (73-393); Protein, Total 8.5 g/dL (6.4-8.2)
[2021-08-02] MEDS: Ketorolac 15 MG/ML Vial IV (17:14)
[2021-08-02] MEDS: 0.9% Normal Saline 1,000 ML 125 ML IV (17:18)
--- NOTE | 2021-08-02 17:25 | CT_ITS ---
STUDY: CT ABDOMEN AND PELVIS WITHOUT CONTRAST REASON FOR EXAM: Male, 56 years old. Right side pain RADIATION DOSAGE (If Supplied By Facility): CTDIvol = ( 11.61 ) mGy, DLP = ( 615.12 ) mGycm TECHNIQUE: Transaxial images were obtained from the dome of the diaphragm to the symphysis pubis without oral contrast, and without intravenous contrast. Sagittal and coronal images were reconstructed. Individualized dose optimization techniques were used for this CT. COMPARISON: 05/14/2021 FINDINGS: The visualized lung bases are unremarkable. The visualized portions of the heart are within normal limits. There is decreased attenuation of the liver consistent with steatosis. There is non-visualization of the gallbladder, which may be secondary to either contraction or a prior cholecystectomy. Normal spleen. Majority of the pancreas is unremarkable. However, the pancreatic head is indistinct and there is smudging of the border suggesting there may be a focal pancreatitis. Normal bilateral adrenal glands. Normal right kidney. Normal left kidney. Normal visualized stomach. Normal small intestine. Scattered colonic diverticula, no CT evidence of acute diverticulitis. The appendix is visualized and appears normal. Appendix seen on coronal recon images 47 through 61. Normal abdominal aorta. Normal inferior vena cava. Normal retroperitoneum. Normal urinary bladder. Normal abdominal wall. Normal osseous structures. CT/Abdomen/Pelvis without Cont IMPRESSION: Diffuse fatty infiltration of the liver, no discrete lesion Pancreatic head is poorly defined with smudging of the borders and of the peripancreatic fat. Focal diverticulitis suspected in the pancreatic head. No perforation, phlegmon or abscess noted. Scattered colonic diverticulosis Normal appendix visualized Electronically Signed: Kevin King MD at 17:52 EST , Service support ,
[2021-08-02] MEDS: HYDROmorphone 1 MG/ML Syringe IV (17:58)
[2021-08-02] MEDS: 0.9% Normal Saline 1,000 ML 999 ML IV (18:45)
--- NOTE | 2021-08-02 18:46 | ED.RN ---
po challenge of water given to pt.
[2021-08-02 19:15] VITALS: BP 146/100; PULSE 95; RESP 18; O2SAT 97
[2021-08-02 19:37] LABS: Mucous, Urine 0 SEEN /hpf (<or=2+); Red Blood Cells-Urine 0 SEEN /hpf (0-5); Squamous Epithelial Cells - UA 0 SEEN /hpf (0-5); White Blood Cells 0 SEEN /hpf (0-5)
[2021-08-02 19:58] LABS: Color, Urine Yellow (Yellow); Glucose, Dipstick 100 mg/dl (Normal); Ketone-Dipstick Negative (Negative); Leukocyte Esterase-Dipstick Negative /ul (Negative); Nitrite-Dipstick Negative (Negative); Occult Blood-Urine 10 /ul (Negative); Protein-Dipstick 30 mg/dl (Negative); Urine Bilirubin Dipstick Negative (Negative); Urine Clarity Clear (Clear); Urine Urobilinogen Normal (Normal)
[2021-08-02 20:12] LABS: Bacteria RARE /hpf (None Seen)
== END 2021-08-02 19:49 | disposition home or self-care (01) ==
PROVIDERS: Emergency Provider Emergency Medicine; PCP Nurse Practitioner Family
DX: K85.90 Acute pancreatitis without necrosis or infection, unspecified (principal); N17.9 Acute kidney failure, unspecified; G40.909 Epilepsy, unspecified, not intractable, without status epilepticus; E11.9 Type 2 diabetes mellitus without complications; I10 Essential (primary) hypertension; E78.5 Hyperlipidemia, unspecified; K21.9 Gastro-esophageal reflux disease without esophagitis; F43.10 Post-traumatic stress disorder, unspecified; F32.A Depression, unspecified; G89.29 Other chronic pain; Z79.82 Long term (current) use of aspirin; Z79.4 Long term (current) use of insulin; Z79.899 Other long term (current) drug therapy; Z87.891 Personal history of nicotine dependence; Z87.19 Personal history of other diseases of the digestive system; Z86.73 Personal history of transient ischemic attack (TIA), and cerebral infarction without residual deficits; Z90.49 Acquired absence of other specified parts of digestive tract
CPT/HCPCS: 74176; 80048; 80076; 81001; 83690; 85025; 96361; 96374; 96375; 99283; J7030; A4216

== ENCOUNTER 2021-12-07 19:55 | Observation (INO) | payer MEDICARE, MEDICAID, SELFPAY ==
[2021-12-07 19:56] VITALS: BP 188/111; PULSE 122; RESP 18; TEMP 37.1; O2SAT 98
[2021-12-07 19:57] VITALS: BP 188/111; PULSE 122; RESP 18; TEMP 37.1; O2SAT 98; BMI 29.2
--- NOTE | 2021-12-07 20:27 | EX.ED.VIS.PS ---
HPI HPI - Psych History of Present Illness Chief Complaint: Suicidal Informant: patient Onset/Context/Timing Onset: Today Narrative Narrative: Patient presents via police secondary to suicidal ideation. Patient states he recently was advised he has to move out of his current apartment and into a studio apartment. He states the increased stress set off some physical ailments for him and made him suicidal. He does admit to drinking alcohol the last 2 days. He states he felt like he was the end of his rope. Tonight he had a gun with plans to shoot himself in the head. He stopped himself and called for help. He denies any prior attempts to hurt himself. [facility] Medical History Acute pancreatitis Anxiety and depression Cancer Chronic pain Constipation Diabetes mellitus type 2 in nonobese Essential (primary) hypertension Former tobacco use Gastric ulcer GERD (gastroesophageal reflux disease) GI bleed Glaucoma Hyperlipidemia Neck pain Pancreatitis PSA elevation PTSD (post-traumatic stress disorder) Seizure disorder Serum ammonia increased TIA (transient ischemic attack) Type 2 diabetes mellitus Vision loss of left eye Vision loss of right eye Home Medications nitroglycerin 0.4 mg SUBLINGUAL Q5M PRN 07/15/13 [History Last Taken 08/22/15] metformin 500 mg PO BID 11/28/13 [History Last Taken 06/06/19] loratadine 10 mg PO DAILY 06/01/17 [History Last Taken 06/06/19] amitriptyline 25 mg tablet 25 mg PO QHS 07/03/18 [History Last Taken 06/06/19] cholecalciferol (vitamin D3) 1 cap PO DAILY 11/09/18 [History Last Taken 06/06/19] aspirin 81 mg chewable tablet 81 mg PO DAILY@0800 #30 tab 04/09/20 [Rx Last Taken Unknown] magnesium oxide 400 mg (241.3 mg magnesium) tablet 400 mg PO BID #60 tab 04/09/20 [Rx Last Taken Unknown] hydrochlorothiazide 25 mg tablet 25 mg PO DAILY #30 tab 06/05/20 [Rx Last Taken Unknown] pravastatin 40 mg tablet 40 mg PO DAILY #30 tab 07/03/20 [Rx Last Taken Unknown] gabapentin 300 mg capsule 300 mg PO BID cap 10/06/20 [History Last Taken Unknown] insulin glargine 10 unit SQ QHS 12/30/20 [History Last Taken Unknown] losartan 25 mg PO DAILY 12/30/20 [History Last Taken Unknown] acetaminophen 650 mg PO Q6H PRN PRN #30 tablet 01/01/21 [Rx Last Taken Unknown] hydromorphone [Dilaudid] 4 mg PO Q6H PRN 5 Days #20 tab 05/18/21 [Rx Last Taken Unknown] oxycodone-acetaminophen [Percocet] 1 tab PO Q6H PRN 3 Days #12 tab 08/02/21 [Rx Last Taken Unknown] lactulose 10 gram/15 mL oral solution 10 g PO DAILY #473 ml 09/02/21 [Rx Last Taken Unknown] levetiracetam 500 mg tablet 500 mg PO BID #60 tab 09/02/21 [Rx Last Taken Unknown] amlodipine 10 mg tablet 10 mg PO DAILY #30 tab 09/10/21 [Rx Last Taken Unknown] latanoprost 1 drp EACH EYE QHS 12/07/21 [History Last Taken Unknown] Allergy/AdvReac Type Severity Reaction Status Date / Time lisinopril Allergy Angioedema Verified 12/07/21 20:45 cyclobenzaprine AdvReac Severe Skin Verified 12/07/21 20:45 crawling hydrocodone bitartrate AdvReac Itching Verified 12/07/21 20:45 [From Vicodin] morphine AdvReac Itching Verified 12/07/21 20:45 tramadol AdvReac Itching Verified 12/07/21 20:45 Family History Mother Heart disease Sister Cerebral aneurysm Surgical History History of cholecystectomy (12/2013) History of left heart catheterization (10/31/11) Social History Smoking Status: Former smoker Tobacco: How many years used: 7 Electronic Cigarette Use: not used alcohol intake: current alcohol intake frequency: holidays/special occasions only Alcohol type: beer details: states a couple beers every now on then, does not have daily substance use type: does not use ROS ROS ED Constitutional Constitutional ED: Denies chills or fever(s) Eyes Eyes: Denies change in vision ENT ENT ED: Denies sore throat Cardiovascular Cardiovascular: Denies chest pain Respiratory/Chest Respiratory/Chest: Denies cough or dyspnea Gastrointestinal Gastrointestinal: Denies abdominal pain, diarrhea, nausea or vomiting Genitourinary Genitourinary ED: Denies dysuria Musculoskeletal Musculoskeletal: Denies back pain or neck pain Integumentary Denies rash Neurologic Neurologic: Denies headache(s) or weakness Psychiatric Psychiatric: Reports depression and suicidal ideation Allergic/Immunologic Allergic/Immunologic ED: Denies urticaria EXAM Physical Exam Const Vital Signs: 12/07/21 19:56 12/07/21 19:57 12/07/21 20:44 Temperature 98.7 F 98.7 F Temperature Source Temporal Temporal Pulse Rate 122 H 122 H Respiratory Rate 18 18 17 Blood Pressure 188/111 H 188/111 H Blood Pressure Mean 136 136 Pulse Ox 98 98 Oxygen Delivery Method Room Air Room Air Positive well nourished and well developed General Appearance ED: well developed HEENT normocephalic and atraumatic Eyes PERRL and EOMs intact bilaterally Neck supple Resp normal respiratory effort and clear to auscultation bilaterally Cardio Rate: regular rate Rhythm: regular rhythm GI non-tender Auscultation: normoactive bowel sounds Palpation: soft Extremity normal to inspection Neuro oriented x3 and no sensory deficits noted Sensorium / Orientation: alert Motor Exam: strength 5/5 throughout Psych cooperative and affect normal Appearance: grossly normal Attitude: calm and engaged Activity / Motor Behavior: appropriate eye contact Speech: pressured Mood & Affect: elevated mood Thought Content: suicidality Skin Lesions: no lesions Rashes: no rashes MDM MDM MDM Narrative Medical decision making narrative: Patient has a sitter at bedside. Lab work for medical clearance obtained. Lab Data Attestation: I reviewed the patient's lab results. Labs: Laboratory Results - last 24 hr 12/07/21 12/07/21 12/07/21 20:15 20:38 20:38 WBC 12.1 H RBC 4.52 L Hgb 14.3 Hct 41.4 MCV 91.6 MCH 31.6 MCHC 34.5 RDW Std Deviation 43.9 RDW Coeff of Armin 13.2 Plt Count 219 MPV 9.7 Immature Gran % (Auto) 0.500 Neut % (Auto) 49.6 Lymph % (Auto) 42.9 H [place] % (Auto) 5.7 Eos % (Auto) 0.8 Baso % (Auto) 0.5 Absolute Neuts (auto) 6.0 Absolute Lymphs (auto) 5.19 H Nucleated RBC % 0 Sodium 135 L Potassium 3.7 Chloride 104 Carbon Dioxide 18.0 L Anion Gap 13 BUN 6 L Creatinine 0.96 Estim Creat Clear Calc 88.72 Est GFR (MDRD) Af Amer 104 Est GFR (MDRD) Non-Af 86 BUN/Creatinine Ratio 6.2 L Glucose 242 H Calcium 9.3 Urine Opiates Screen NEGATIVE Urine Methadone Screen NEGATIVE Ur Barbiturates Screen NEGATIVE Ur Phencyclidine Scrn NEGATIVE Ur Amphetamines Screen NEGATIVE MDMA (Ecstasy) Screen NEGATIVE U Benzodiazepines Scrn NEGATIVE Urine Cocaine Screen NEGATIVE U Cannabinoids Screen NEGATIVE Ur Drug Screen Comment Ethyl Alcohol 12/07/21 20:38 WBC RBC Hgb Hct MCV MCH MCHC RDW Std Deviation RDW Coeff of Armin Plt Count MPV Immature Gran % (Auto) Neut % (Auto) Lymph % (Auto) [place] % (Auto) Eos % (Auto) Baso % (Auto) Absolute Neuts (auto) Absolute Lymphs (auto) Nucleated RBC % Sodium Potassium Chloride Carbon Dioxide Anion Gap BUN Creatinine Estim Creat Clear Calc Est GFR (MDRD) Af Amer Est GFR (MDRD) Non-Af BUN/Creatinine Ratio Glucose Calcium Urine Opiates Screen Urine Methadone Screen Ur Barbiturates Screen Ur Phencyclidine Scrn Ur Amphetamines Screen MDMA (Ecstasy) Screen U Benzodiazepines Scrn Urine Cocaine Screen U Cannabinoids Screen Ur Drug Screen Comment Ethyl Alcohol 292.0 Rapid COVID: Negative Treatment and Re-Evaluation Narrative: Covid test is negative. Tox screen is negative alcohol is 292. Lab work reveals hyperglycemia with a blood sugar 242. Patient be maintained on his normal home medications. Repeat alcohol is ordered to be drawn at 6 AM. Patient will require evaluation by crisis at that time. Patient will be signed out to oncoming physician for observation overnight. Discharge Plan Triage Chief Complaint: Suicidal ED Provider: Toya Cedillo Dx/Rx/DC Orders Prescriptions: No Action amitriptyline 25 mg tablet 25 mg PO QHS RF: 0 gabapentin 300 mg capsule 300 mg PO BID RF: 0 amlodipine 10 mg tablet 10 mg PO DAILY Qty: 30 RF: 11 lactulose 10 gram/15 mL solution 10 g PO DAILY Qty: 473 RF: 4 levetiracetam 500 mg tablet 500 mg PO BID Qty: 60 RF: 4 nitroglycerin 0.4 MG tablet 0.4 mg sublingual Q5M PRN (Reason: Chest Pain) RF: 0 metformin 500 MG tablet 500 mg PO BID RF: 0 loratadine 10 MG capsule 10 mg PO DAILY RF: 0 cholecalciferol (vitamin D3) 5,000 capsule 1 cap PO DAILY RF: 0 insulin glargine 100 UNIT/ML solution 10 unit SQ QHS RF: 0 losartan 50 MG tablet 25 mg PO DAILY RF: 0 acetaminophen 325 MG tablet 650 mg PO Q6H PRN PRN (Reason: Pain Score 1-10/Temp > 100.7 F) Qty: 30 RF: 1 hydromorphone [Dilaudid] 4 mg tablet 4 mg PO Q6H PRN (Reason: pain) 5 Days Qty: 20 RF: 0 oxycodone-acetaminophen [Percocet] 5-325 mg tablet 1 tab PO Q6H PRN (Reason: pain) 3 Days Qty: 12 RF: 0 latanoprost 0.005 % drops 1 drp EACH EYE QHS RF: 0 aspirin 81 mg tablet,chewable 81 mg PO DAILY@0800 Qty: 30 RF: 11 magnesium oxide 400 mg (241.3 mg magnesium) tablet 400 mg PO BID Qty: 60 RF: 11 hydrochlorothiazide 25 mg tablet 25 mg PO DAILY Qty: 30 RF: 11 pravastatin 40 mg tablet 40 mg PO DAILY Qty: 30 RF: 11 Primary Care Provider: Souleymane Kelly NP
[2021-12-07 20:44] VITALS: RESP 17
[2021-12-07 20:57] LABS: Amphetamine Urine VISTA NEGATIVE (<1000 ng/mL); Barbiturate Urine VISTA NEGATIVE (< 200 ng/mL); Benzodiazepine Urine VISTA NEGATIVE (< 200 ng/mL); Cocaine Urine VISTA NEGATIVE (< 300 ng/mL); Ecstacy Urine VISTA NEGATIVE (< 500 ng/mL); Methadone Urine VISTA NEGATIVE (< 300 ng/mL); PCP Urine VISTA NEGATIVE (< 25 ng/mL); THC Urine VISTA NEGATIVE (< 50 ng/mL); Vista UDS pH Range 5
[2021-12-07 21:00] VITALS: RESP 17
[2021-12-07 21:05] LABS: Anion Gap 13 (5-15); BUN 6 mg/dL (7-18); BUN/Creat Ratio 6.2 RATIO (10-20); Calcium,Total 9.3 mg/dL (8.5-10.1); Chloride 104 mmol/L (98-107); Creatinine, Serum 0.96 mg/dL (0.70-1.30); EST Glomerular Filtration Rate 86 mL/min (>60); Est Glom Filt Rate - Afr Amer 104 mL/min (>60); Estimated Creatinine Clearance 88.72 ml/min; Glucose 242 mg/dL (74-106); Potassium 3.7 mmol/L (3.5-5.1); Sodium Level 135 mmol/L (136-145)
[2021-12-07 21:38] LABS: Absolute Lymphocyte Count 5.19 X10^3/uL (0.83-4.51); Basophil# 0.06 X10^3/uL; Basophil% 0.5 % (0-1); Eosinophils% 0.8 % (0-5); Hematocrit 41.4 % (40-54); Hemoglobin 14.3 g/dL (13.0-16.5); Lymphocyte # 5.19 X10^3/ul (0.83-4.51); Lymphocyte % 42.9 % (19-41); Mean Corp Hgb Conc 34.5 g/dL (32-36); Mean Corpuscular Hgb 31.6 pg (27.0-32.0); Mean Corpuscular Volume 91.6 fL (80-94); Mean Platelet Vol. 9.7 fl (6.2-12.0); Monocyte# 0.69 X10^3/uL; Monocyte% 5.7 % (0-10); NRBC Flagged by Analyzer 0 % (0-5); Neutrophil # 6.01 X10^3/uL (2.7-7.7); Neutrophil % 49.6 % (47-70); POSITIVE DIFFERENTIAL YES; Platelet Count 219 K/mm3 (150-450); RBC Distribution Width CV 13.2 % (11.6-14.6); RBC Distribution Width SD 43.9 fl (35.1-43.9); Red Blood Count 4.52 M/mm3 (4.6-6.2); White Blood Count 12.1 K/mm3 (4.4-11.0)
[2021-12-07 21:40] LABS: Differential Indicated SCAN CRITERIA MET
--- NOTE | 2021-12-07 21:41 | CM.ED ---
Social Work Consult: Suicidal. Crisis to follow for assessment as patient with blood alcohol of 292.0 and will not be medically cleared until under 100. This medical social worker advised medical team to call crisis when patient is medically cleared. Rajendra MANN, TIM
[2021-12-07 22:05] LABS: Differential Comment SCANNED
[2021-12-07 22:11] LABS: Bedside Glucose 212 mg/dL (74-106)
[2021-12-07 22:21] VITALS: BP 167/100; PULSE 117; RESP 18; O2SAT 99
[2021-12-07] MEDS: levETIRAcetam 500 MG Tablet PO (22:24)
[2021-12-07] MEDS: Amitriptyline 25 MG Tablet PO (22:24)
[2021-12-07 23:00] VITALS: RESP 17
[2021-12-07] MEDS: Acetaminophen 325 MG Tablet 650 MG PO (23:39)
[2021-12-08] VITALS (15 sets, daily range): BP systolic 103–160; BP diastolic 48–102; PULSE 72–106; RESP 12–25; TEMP 35.7–37.3; O2SAT 87–98; BMI 28.3
--- NOTE | 2021-12-08 01:51 | ED.RN ---
Dr Lucas is awarepatient woke up with the abdominal pain and states thinks it is pancreatitis. Patient is passing a lot of gas.
[2021-12-08] MEDS: Ondansetron 4 MG/2 ML Vial IM (02:10)
[2021-12-08] MEDS: HYDROmorphone 0.5 MG/0.5 ML SYRINGE IM (02:10)
[2021-12-08 02:28] LABS: Lipase 401 U/L (73-393)
--- NOTE | 2021-12-08 03:47 | ED.RN ---
Holding ativan because of patient sx. Patient is aware we have it if he wants it but will hold for now.
[2021-12-08] MEDS: Mag Hydrox/Al Hydrox/Simeth 30 ML UDC PO (03:48)
--- NOTE | 2021-12-08 03:48 | RAD_ITS ---
STUDY: X-RAY CHEST REASON FOR EXAM: Male, 56 years old. dyspnea TECHNIQUE: Single AP portable view of the chest. COMPARISON: None. FINDINGS: There are subsegmental atelectases in the right and left lung bases. There is no demonstrated pleural abnormality. Normal size heart. Normal mediastinum and lamar. Normal visualized pulmonary arteries. Normal visualized aortic arch and descending thoracic aorta. Normal visualized thoracic spine. Normal visualized ribs, clavicles, and shoulders. There is no demonstrated abnormality of the visualized soft tissue structures of the upper abdomen. RAD/Chest 1 View (Portable) IMPRESSION: No demonstrated acute cardiopulmonary process. Electronically Signed: Adolfo Newby MD at 4:53 EDT ,
--- NOTE | 2021-12-08 03:48 | CT_ITS ---
STUDY: CT ABDOMEN AND PELVIS WITH CONTRAST REASON FOR EXAM: Male, 56 years old. abdominal pain RADIATION DOSAGE (If Supplied By Facility): CTDIvol = ( 20.36 ) mGy, DLP = ( 1197.82 ) mGycm TECHNIQUE: Transaxial images were obtained from the dome of the diaphragm to the symphysis pubis without oral contrast. IV 100mL Isovue-300 was administered. Sagittal and coronal images were reconstructed. Individualized dose optimization techniques were used for this CT. COMPARISON: None. FINDINGS: The visualized lung bases are unremarkable. The visualized portions of the heart are within normal limits. There is decreased attenuation of the liver consistent with steatosis. Normal gallbladder and extrahepatic biliary system. Normal spleen. There is mild enlargement of the pancreas head with cristina-pancreatic edema suggesting early acute pancreatitis. Normal bilateral adrenal glands. Normal right kidney. There is a cyst in the left kidney measures 1.5 cm. Normal visualized stomach. Normal small intestine. There are multiple colonic diverticula consistent with diverticulosis. The appendix is visualized and appears normal. Normal abdominal aorta. Normal inferior vena cava. Normal retroperitoneum. Normal urinary bladder. Normal abdominal wall. Normal osseous structures. CT/Abdomen/Pelvis W IV Cont ONLY IMPRESSION: There is mild enlargement of the head of the pancreas with adjacent fat stranding suggesting early acute pancreatitis. Electronically Signed: Adolfo Newby MD at 5:03 EDT ,
--- NOTE | 2021-12-08 03:48 | EKG12_ITS ---
Test Reason : PAIN Blood Pressure : / mmHG Vent. Rate : 079 BPM Atrial Rate : 079 BPM P-R Int : 142 ms QRS Dur : 078 ms QT Int : 374 ms P-R-T Axes : 049 -06 -22 degrees QTc Int : 428 ms Normal sinus rhythm Nonspecific ST and T wave abnormality Abnormal ECG Confirmed by CHIP CADE, TAPAN ([id number]), associate entertainment editor ERNA STERN ([id number]) on 12/09/2021 9:12:10 AM Referred By: RU Confirmed By:TAPAN SAUNDERS MD
[2021-12-08] MEDS: 0.9% Normal Saline 1,000 ML 150 ML IV ×2 (04:13→10:45)
--- NOTE | 2021-12-08 04:18 | SUR.HOLD ---
While in room to give patient the GI cocktail, he states he cannot breath and feels sweay. ECG called and Dr Lucas alerted. Patient did try heave and vasovagaled with bp to 96/69 ad 103/48. At this time, SPO2 87-92 on RA with good wave form. 2L NC applied and ecg completed. Green sent down for troponin and fluids hung. At this time, he rates his pain at a 4 on the pain scale. Awaiting radiology for imaging.
[2021-12-08 04:39] LABS: Troponin-I HS 13 pg/mL (3.0-78.0)
--- NOTE | 2021-12-08 04:49 | ED.RN ---
Patient reports he is feeling much better at this time, will continue to monitor
--- NOTE | 2021-12-08 08:43 | ED.RN ---
[facility] WITH CRISIS EVALUATING PT VIA TELEPHONE
[2021-12-08] MEDS: HYDROmorphone 0.5 MG/0.5 ML SYRINGE IV (09:42)
[2021-12-08 09:54] LABS: Lipase 846 U/L (73-393)
--- NOTE | 2021-12-08 10:03 | HP.PCM.HOS_ITS ---
HPI - General General Date of Admission: 12/08/21 HPI Narrative BRANDON WELLER, is a 56 M who presents with suicidal ideation. His plan is to put a gun to his head and he does home a gun. He was found to have an elevated alcohol level on presentation to the ER so he was kept in the ER overnight awaiting evaluation by crisis as well as normalization of his alcohol level, this morning was normalized however overnight he started complaining of abdominal pain so a lipase and a CT scan were obtained. He does have a history of chronic pancreatitis secondary to alcohol use. He was admitted in April for pancreatitis his lipase at that time was over 5000. Here is only 400 however crisis refused to take him. CT scan showed mild peripancreatic inflammation which is also consistent with both acute pancreatitis as well as chronic pancreatitis and he has had previous pseudocysts from his drinking. Repeat lipase was elevated a little over 800 which still does not meet criteria for pa ncreatitis. He states that he usually drinks to relax but he would not define himself as an alcoholic. He says that he only has 2 beers every couple nights. This time around he was drinking because his landlord told him that she sold the house he was living in and the new buyers wanted him to move out of his 2 bedroom apartment into a 1 bedroom apartment and that there can be increasing his rent by $50 a month. [facility] Medical History Acute pancreatitis Anxiety and depression Cancer Chronic pain Constipation Diabetes mellitus type 2 in nonobese Essential (primary) hypertension Former tobacco use Gastric ulcer GERD (gastroesophageal reflux disease) GI bleed Glaucoma Hyperlipidemia Neck pain Pancreatitis PSA elevation PTSD (post-traumatic stress disorder) Seizure disorder Serum ammonia increased TIA (transient ischemic attack) Type 2 diabetes mellitus Vision loss of left eye Vision loss of right eye Home Medications nitroglycerin 0.4 mg SUBLINGUAL Q5M PRN 07/15/13 [History Last Taken 08/22/15] metformin 500 mg PO BID 11/28/13 [History Last Taken 06/06/19] loratadine 10 mg PO DAILY 06/01/17 [History Last Taken 06/06/19] amitriptyline 25 mg tablet 25 mg PO QHS 07/03/18 [History Last Taken 12/07/21] cholecalciferol (vitamin D3) 1 cap PO DAILY 11/09/18 [History Last Taken 06/06/19] aspirin 81 mg chewable tablet 81 mg PO DAILY@0800 #30 tab 04/09/20 [Rx Last Taken 12/07/21] magnesium oxide 400 mg (241.3 mg magnesium) tablet 400 mg PO BID #60 tab 04/09/20 [Rx Last Taken Unknown] hydrochlorothiazide 25 mg tablet 25 mg PO DAILY #30 tab 06/05/20 [Rx Last Taken Unknown] pravastatin 40 mg tablet 40 mg PO DAILY #30 tab 07/03/20 [Rx Last Taken Unknown] gabapentin 300 mg capsule 300 mg PO BID cap 10/06/20 [History Last Taken U nknown] insulin glargine 10 unit SQ QHS 12/30/20 [History Last Taken Unknown] losartan 25 mg PO DAILY 12/30/20 [History Last Taken Unknown] acetaminophen 650 mg PO Q6H PRN PRN #30 tablet 01/01/21 [Rx Last Taken Unknown] hydromorphone [Dilaudid] 4 mg PO Q6H PRN 5 Days #20 tab 05/18/21 [Rx Last Taken Unknown] oxycodone-acetaminophen [Percocet] 1 tab PO Q6H PRN 3 Days #12 tab 08/02/21 [Rx Last Taken Unknown] lactulose 10 gram/15 mL oral solution 10 g PO DAILY #473 ml 09/02/21 [Rx Last Taken Unknown] levetiracetam 500 mg tablet 500 mg PO BID #60 tab 09/02/21 [Rx Last Taken Unknown] amlodipine 10 mg tablet 10 mg PO DAILY #30 tab 09/10/21 [Rx Last Taken Unknown] latanoprost 1 drp EACH EYE QHS 12/07/21 [History Last Taken Unknown] Allergy/AdvReac Type Severity Reaction Status Date / Time lisinopril Allergy Angioedema Verified 12/07/21 20:45 cyclobenzaprine AdvReac Severe Skin Verified 12/07/21 20:45 crawling hydrocodone bitartrate AdvReac Itching Verified 12/07/21 20:45 [From Vicodin] morphine AdvReac Itching Verified 12/07/21 20:45 tramadol AdvReac Itching Verified 12/07/21 20:45 Family History Mother Heart disease Sister Cerebral aneurysm Surgical History History of cholecystectomy (12/2013) History of left heart catheterization (10/31/11) Social History Smoking Status: Former smoker Tobacco: How many years used: 7 Electronic Cigarette Use: not used alcohol intake: current alcohol intake frequency: holidays/special occasions only Alcohol type: beer details: states a couple beers every now on then, does not have daily substance use type: does not use ROS Constitutional Constitutional: Denies chills, fatigue, fever(s) or malaise Eyes Eyes: Denies blurry vision ENT HEENT: Denies headache(s) or nasal discharge Cardiovascular Cardiovascular: Denies chest pain, dyspnea on exertion or syncope Respiratory/Chest Respiratory/Chest: Denies cough, shortness of breath at rest or shortness of breath with exertion Gastrointestinal Gastrointestinal: Reports abdominal pain; Denies constipation, diarrhea, nausea or vomiting Genitourinary Genitourinary: Denies dysuria Neurologic Neurologic: Denies focal weakness, numbness or tremor(s) Psychiatric Psychiatric: Reports depression and suicidal ideation; Denies anxiety Vital Signs Vital Signs Vital Signs: 12/07/21 19:56 12/07/21 19:57 12/07/21 20:44 Temperature 98.7 F 98.7 F Temperature Source Temporal Temporal Pulse Rate 122 H 122 H Respiratory Rate 18 18 17 Blood Pressure 188/111 H 188/111 H Blood Pressure Mean 136 136 Pulse Ox 98 98 Oxygen Delivery Method Room Air Room Air Oxygen Flow Rate (L/min) 12/07/21 21:00 12/07/21 22:21 12/07/21 23:00 Temperature Temperature Source Pulse Rate 117 H Respiratory Rate 17 18 17 Blood Pressure 167/100 H Blood Pressure Mean 122 Pulse Ox 99 Oxygen Delivery Method Room Air Oxygen Flow Rate (L/min) 12/08/21 02:11 12/08/21 03:36 12/08/21 03:51 Temperature 98.0 F 96.3 F L Temperature Source Oral Temporal Pulse Rate 104 H 72 72 Respiratory Rate 16 24 H Blood Pressure 153/89 H 105/85 H Blood Pressure Mean 110 91 Pulse Ox 96 95 Oxygen Delivery Method Room Air Room Air Oxygen Flow Rate (L/min) 12/08/21 04:14 12/08/21 04:15 12/08/21 04:48 Temperature 98.2 F Temperature Source Temporal Pulse Rate 86 Respiratory Rate 22 H Blood Pressure 103/48 L Blood Pressure Mean 66 Pulse Ox 87 97 97 Oxygen Delivery Method Room Air Nasal Cannula Nasal Cannula Oxygen Flow Rate (L/min) 2 1 12/08/21 06:48 12/08/21 08:00 12/08/21 09:41 Temperature Temperature Source Pulse Rate 101 H 95 104 H Respiratory Rate 20 H 25 H 25 H Blood Pressure 125/93 H 125/83 H 160/95 H Blood Pressure Mean 103 97 116 Pulse Ox 94 97 97 Oxygen Delivery Method Room Air Room Air Room Air Oxygen Flow Rate (L/min) Weight Weight: 203 lb 7.787 oz Body Mass Index (BMI) 29.2 Physical Exam Const alert, oriented x3 and no apparent distress General Appearance: cooperative HEENT normocephalic Mouth: dry mucous membranes Eyes PERRL, EOMs intact bilaterally and conjunctivae normal Neck supple and no JVD Resp normal respiratory effort, no retractions, no use of accessory muscles and clear to auscultation bilaterally Auscultation: Negative for crackles, rales, rhonchi or wheezes Cardio regular rate, regular rhythm, S1 normal heart sound, S2 normal heart sound and no murmurs GI soft to palpation and non-distended; Negative for hepatosplenomegaly Palpation: tender epigastric Extremity no clubbing, cyanosis or edema Skin no rashes or lesions noted Neuro no focal motor deficits and no sensory deficits noted Psych Psych Narrative: Suicidal ideation with a plan to shoot himself in the head with his gun Mood & Affect: depressed Results Lab / Micro Data Result Diagrams: 12/07/21 20:38 12/07/21 20:38 Labs: Laboratory Results - last 24 hr 12/07/21 20:15: Urine Opiates Screen NEGATIVE, Urine Methadone Screen NEGATIVE, Ur Barbiturates Screen NEGATIVE, Ur Phencyclidine Scrn NEGATIVE, Ur Amphetamines Screen NEGATIVE, MDMA (Ecstasy) Screen NEGATIVE, U Benzodiazepines Scrn NEGATIVE, Urine Cocaine Screen NEGATIVE, U Cannabinoids Screen NEGATIVE, Ur Drug Screen Comment 12/07/21 20:38: WBC 12.1 H, RBC 4.52 L, Hgb 14.3, Hct 41.4, MCV 91.6, MCH 31.6, MCHC 34.5, RDW Std Deviation 43.9, RDW Coeff of Armin 13.2, Plt Count 219, MPV 9.7, Immature Gran % (Auto) 0.500, Neut % (Auto) 49.6, Lymph % (Auto) 42.9 H, [place] % (Auto) 5.7, Eos % (Auto) 0.8, Baso % (Auto) 0.5, Absolute Neuts (auto) 6.0, Absolute Lymphs (auto) 5.19 H, Nucleated RBC % 0, Differential Comment SCANNED 12/07/21 20:38: Sodium 135 L, Potassium 3.7, Chloride 104, Carbon Dioxide 18.0 L , Anion Gap 13, BUN 6 L, Creatinine 0.96, Estim Creat Clear Calc 88.72, Est GFR (MDRD) Af Amer 104, Est GFR (MDRD) Non-Af 86, BUN/Creatinine Ratio 6.2 L, Gluco se 242 H, Calcium 9.3 12/07/21 20:38: Ethyl Alcohol 292.0 12/07/21 20:38: Lipase 401 H 12/07/21 22:05: POC Glucose 212 H 12/08/21 04:09: Troponin I High Sens 13 12/08/21 06:15: Ethyl Alcohol Cancelled 12/08/21 07:30: Ethyl Alcohol 38.0 12/08/21 09:21: Lipase 846 H Micro: Microbiology 12/07/21 20:15 Nasal Secretion SARS-CoV-2 Antigen (Rapid) - Final Radiology Impression Abdomen/Pelvis CT 12/08/21 03:48 IMPRESSION: There is mild enlargement of the head of the pancreas with adjacent fat stranding suggesting early acute pancreatitis. Electronically Signed: Adolfo Newby MD at 5:03 EDT , Chest X-Ray 12/08/21 03:48 IMPRESSION: No demonstrated acute cardiopulmonary process. Electronically Signed: Adolfo Newby MD at 4:53 EDT , Assessment & Plan Assessment/Plan (1) Pancreatitis: PLAN: 1. Suicidal ideation with depression and a history of chronic pancreatitis and now abdominal pain with a slightly elevated lipase likely due to alcohol/anxiety/depression ?Lipase level does not meet the criteria for pancreatitis at this time ?Continue with a low-fat diet and IV fluids he denies significant abdominal pain and says that he has had episodes of pancreatitis over much worse ?He is status post cholecystectomy and he had an MRCP in April 2021 which was unremarkable ?All of his previous triglycerides were less than 500 ?Discharge disposition is to crisis ?Continue with his home pain meds ?Continue with his amitriptyline ?Continue with CIWA protocols and Ativan as needed 2. HTN/HLD ?Blood pressures are stable ?Continue with his as well as his blood pressure medications 3. DM2 ?We will hold his Metformin and continue with sliding scale insulin as well as his Lantus ?Accu-Cheks AC at bedtime ?Continue to monitor and adjust as necessary 4. Epilepsy ?Stable ?Continue with Keppra 5. Chronic pain with likely constipation ?Pain is stable we will continue with his home home NSAIDs and add on IV Dilaudid for his abdominal pain ?Continue with lactulose DVT: Lovenox Charges/Coding Visit Charges Inpatient E&M: 46105 Init Hosp L2
--- NOTE | 2021-12-08 10:13 | CM.ED ---
Social Work Collaborating with ED doctor, crisis and nursing staff. Patient to be admitted for elevated lipase. Medical team continuing to recommending inpatient psychiatric placement. Crisis already completed assessment in ED. Plan is for crisis to facilitate placement to an inpatient psychiatric facility after patient is medically cleared from acute care unit. PLAN: Admit for medical care and then transition to inpatient psychiatric facility. Rajendra MANN, DINESH-S
[2021-12-08] MEDS: 0.9% Normal Saline 1,000 ML 125 ML IV ×2 (11:36→18:35)
[2021-12-08] MEDS: HYDROmorphone 1 MG/ML Syringe IV ×3 (11:57→22:14)
[2021-12-08] MEDS: Magnesium Chloride 64 MG Delay Rel.Tablet 128 MG PO ×2 (11:58→22:16)
[2021-12-08] MEDS: hydroCHLOROthiazide 25 MG Tablet PO (11:58)
[2021-12-08] MEDS: Enoxaparin 40 MG/0.4 ML Syringe SC (11:58)
[2021-12-08] MEDS: Loratadine 10 MG Tablet PO (11:58)
[2021-12-08] MEDS: Losartan Potassium 25 MG Tablet PO (11:58)
[2021-12-08] MEDS: amLODIPine 10 MG Tablet PO (11:58)
[2021-12-08] MEDS: Pravastatin 40 MG Tablet PO (12:12)
[2021-12-08] MEDS: levETIRAcetam 500 MG Tablet PO ×2 (12:12→22:16)
[2021-12-08] MEDS: Lactulose 20 GM/30 ML UDC 10 GM PO (12:13)
[2021-12-08] MEDS: LORazepam 1 MG Tablet 2 MG PO ×2 (12:51→23:57)
[2021-12-08 16:10] LABS: Bedside Glucose 138 mg/dL (74-106)
[2021-12-08] MEDS: oxyCODONE 5 MG Tablet PO (21:05)
[2021-12-08] MEDS: Amitriptyline 25 MG Tablet PO (22:14)
[2021-12-08] MEDS: 0.9% Saline Lock 10 ML Syringe IV (22:16)
[2021-12-08] MEDS: Gabapentin 300 MG Capsule PO (23:04)
[2021-12-08 23:11] LABS: Bedside Glucose 160 mg/dL (74-106)
[2021-12-08] MEDS: MELATONIN 3 MG TABLET PO (23:58)
[2021-12-08] MEDS: Ondansetron 4 MG/2 ML Vial IV (23:59)
[2021-12-09] VITALS (7 sets, daily range): BP systolic 119–156; BP diastolic 79–98; PULSE 88–104; RESP 12–18; TEMP 36.6–37; O2SAT 92–97
[2021-12-09] MEDS: LORazepam 1 MG Tablet 2 MG PO ×2 (02:00→22:07)
[2021-12-09] MEDS: 0.9% Normal Saline 1,000 ML 125 ML IV ×3 (02:03→17:00)
[2021-12-09 05:55] LABS: Absolute Lymphocyte Count 2.47 X10^3/uL (0.83-4.51); Absolute Neutrophil Count 7.2 X10^3/uL (2.0-7.7); Basophil# 0.04 X10^3/uL; Basophil% 0.4 % (0-1); Eosinophil# 0.08 X10^3/uL; Eosinophils% 0.8 % (0-5); Hematocrit 36.2 % (40-54); Hemoglobin 12.7 g/dL (13.0-16.5); Lymphocyte # 2.47 X10^3/ul (0.83-4.51); Lymphocyte % 23.3 % (19-41); Mean Corp Hgb Conc 35.1 g/dL (32-36); Mean Corpuscular Hgb 31.9 pg (27.0-32.0); Mean Platelet Vol. 9.4 fl (6.2-12.0); Monocyte# 0.72 X10^3/uL; Monocyte% 6.8 % (0-10); NRBC Flagged by Analyzer 0 % (0-5); Neutrophil # 7.23 X10^3/uL (2.7-7.7); Neutrophil % 68.3 % (47-70); Platelet Count 169 K/mm3 (150-450); RBC Distribution Width CV 13.1 % (11.6-14.6); RBC Distribution Width SD 43.5 fl (35.1-43.9); Red Blood Count 3.98 M/mm3 (4.6-6.2); White Blood Count 10.6 K/mm3 (4.4-11.0)
[2021-12-09 06:22] LABS: ALB/GLOB Ratio 1.1 RATIO (0.9-2.4); AST(SGOT) 20 U/L (15-37); Alanine Aminotransfer ALT/SGPT 23 U/L (16-61); Albumin, Serum 3.6 g/dL (3.2-5.0); Alkaline Phosphatase 70 U/L (45-117); Anion Gap 4 (5-15); BUN 10 mg/dL (7-18); BUN/Creat Ratio 11.5 RATIO (10-20); Calcium,Total 8.6 mg/dL (8.5-10.1); Chloride 108 mmol/L (98-107); Creatinine, Serum 0.87 mg/dL (0.70-1.30); EST Glomerular Filtration Rate 96 mL/min (>60); Est Glom Filt Rate - Afr Amer 116 mL/min (>60); Estimated Creatinine Clearance 97.89 ml/min; Globulin 3.3 g/dL (2.2-4.2); Glucose 98 mg/dL (74-106); Potassium 3.3 mmol/L (3.5-5.1); Protein, Total 6.9 g/dL (6.4-8.2); Sodium Level 138 mmol/L (136-145)
[2021-12-09 06:25] LABS: Bedside Glucose 102 mg/dL (74-106)
[2021-12-09] MEDS: Lactulose 20 GM/30 ML UDC 10 GM PO (09:10)
[2021-12-09] MEDS: levETIRAcetam 500 MG Tablet PO ×2 (09:11→22:04)
[2021-12-09] MEDS: amLODIPine 10 MG Tablet PO (09:11)
[2021-12-09] MEDS: Pravastatin 40 MG Tablet PO (09:11)
[2021-12-09] MEDS: Enoxaparin 40 MG/0.4 ML Syringe SC (09:11)
[2021-12-09] MEDS: Loratadine 10 MG Tablet PO (09:12)
[2021-12-09] MEDS: Magnesium Chloride 64 MG Delay Rel.Tablet 128 MG PO ×2 (09:12→22:04)
[2021-12-09] MEDS: Gabapentin 300 MG Capsule PO ×3 (09:12→16:46)
[2021-12-09] MEDS: hydroCHLOROthiazide 25 MG Tablet PO (09:12)
[2021-12-09] MEDS: Losartan Potassium 25 MG Tablet PO (09:12)
[2021-12-09] MEDS: oxyCODONE 5 MG Tablet PO ×3 (09:25→23:50)
[2021-12-09 10:31] LABS: Lipase 331 U/L (73-393)
--- NOTE | 2021-12-09 10:45 | NURSING ---
Spoke with crisis entry level marketing representative to inform patient has been medically cleared for placement. Intermediate Manager voiced understanding and stated she will begin to look for a facility. She requested we fax statement of medical clearance and updated labs.
[2021-12-09] MEDS: Insulin Lispro 100 UNIT/ML INSULN.PEN SC ×2 (11:39→16:34)
[2021-12-09 11:41] LABS: Bedside Glucose 188 mg/dL (74-106)
--- NOTE | 2021-12-09 12:40 | DCINST_ITS ---
Discharge Instructions Diet Discharge Diet: Low fat / Low cholesterol and Carb Control Diet Activity Discharge Activity: Return to Normal Activity Dressing / Incision Call your doctor if you observe: Fever of 101 or Higher, Shortness of breath, Dizziness, Fainting spells, Swelling in the ankles, Chest pain and Increased palpitations (irregular heartbeat) Follow Up Care Test Results: Test results from this visit will be discussed in further detail at your follow-up appointment, if applicable. Discharge Plan Admission Admit Date/Time: 12/08/21 09:58 Attending Provider: Dillon Harrell Primary Care Provider: Souleymane Kelly NP Discharge Orders/Prescriptions Prescriptions: Continued amitriptyline 25 mg tablet 25 mg PO QHS RF: 0 gabapentin 300 mg capsule 300 mg PO BID RF: 0 amlodipine 10 mg tablet 10 mg PO DAILY Qty: 30 RF: 11 lactulose 10 gram/15 mL solution 10 g PO DAILY Qty: 473 RF: 4 levetiracetam 500 mg tablet 500 mg PO BID Qty: 60 RF: 4 nitroglycerin 0.4 MG tablet 0.4 mg sublingual Q5M PRN (Reason: Chest Pain) RF: 0 metformin 500 MG tablet 500 mg PO BID RF: 0 loratadine 10 MG capsule 10 mg PO DAILY RF: 0 cholecalciferol (vitamin D3) 5,000 capsule 1 cap PO DAILY RF: 0 insulin glargine 100 UNIT/ML solution 10 unit SQ QHS RF: 0 losartan 50 MG tablet 25 mg PO DAILY RF: 0 acetaminophen 325 MG tablet 650 mg PO Q6H PRN PRN (Reason: Pain Score 1-10/Temp > 100.7 F) Qty: 30 RF: 1 hydromorphone [Dilaudid] 4 mg tablet 4 mg PO Q6H PRN (Reason: pain) 5 Days Qty: 20 RF: 0 oxycodone-acetaminophen [Percocet] 5-325 mg tablet 1 tab PO Q6H PRN (Reason: pain) 3 Days Qty: 12 RF: 0 latanoprost 0.005 % drops 1 drp EACH EYE QHS RF: 0 aspirin 81 mg tablet,chewable 81 mg PO DAILY@0800 Qty: 30 RF: 11 magnesium oxide 400 mg (241.3 mg magnesium) tablet 400 mg PO BID Qty: 60 RF: 11 hydrochlorothiazide 25 mg tablet 25 mg PO DAILY Qty: 30 RF: 11 pravastatin 40 mg tablet 40 mg PO DAILY Qty: 30 RF: 11 Referrals / Follow Up: Souleymane Kelly NP, [employer]-C [Primary Care Provider] - Within 2 Weeks Disposition Disposition (needs filled in before D/C Order can be placed): Psychiatric Hospital or Unit
--- NOTE | 2021-12-09 13:19 | PCM.DC.SUM ---
Providers Date of Admission: 12/08/21 Primary Care Physician: TORY Aldridge Reason For Visit: SUICIDAL, ABDOMINAL PAIN WITH ELEVATED LIPASE Diagnosis Discharge Diagnosis (1) Pancreatitis: Status: Acute Code(s): K85.90 - Acute pancreatitis without necrosis or infection, unspecified Medications at Discharge Home Medications nitroglycerin 0.4 mg SUBLINGUAL Q5M PRN 07/15/13 metformin 500 mg PO BID 11/28/13 loratadine 10 mg PO DAILY 06/01/17 amitriptyline 25 mg tablet 25 mg PO QHS 07/03/18 cholecalciferol (vitamin D3) 1 cap PO DAILY 11/09/18 aspirin 81 mg chewable tablet 81 mg PO DAILY@0800 #30 tab 04/09/20 magnesium oxide 400 mg (241.3 mg magnesium) tablet 400 mg PO BID #60 tab 04/09/20 hydrochlorothiazide 25 mg tablet 25 mg PO DAILY #30 tab 06/05/20 pravastatin 40 mg tablet 40 mg PO DAILY #30 tab 07/03/20 gabapentin 300 mg capsule 300 mg PO BID cap 10/06/20 insulin glargine 10 unit SQ QHS 12/30/20 losartan 25 mg PO DAILY 12/30/20 acetaminophen 650 mg PO Q6H PRN PRN #30 tablet 01/01/21 hydromorphone [Dilaudid] 4 mg PO Q6H PRN 5 Days #20 tab 05/18/21 oxycodone-acetaminophen [Percocet] 1 tab PO Q6H PRN 3 Days #12 tab 08/02/21 lactulose 10 gram/15 mL oral solution 10 g PO DAILY #473 ml 09/02/21 levetiracetam 500 mg tablet 500 mg PO BID #60 tab 09/02/21 amlodipine 10 mg tablet 10 mg PO DAILY #30 tab 09/10/21 latanoprost 1 drp EACH EYE QHS 12/07/21 Hospital Course Operations None Procedures None Summary of Care Provided Minutes Spent on Discharge: 40 Hospital Course: Per HPI: BRANDON WELLER, is a 56 M who presents with suicidal ideation. His plan is to put a gun to his head and he does home a gun. He was found to have an elevated alcohol level on presentation to the ER so he was kept in the ER overnight awaiting evaluation by crisis as well as normalization of his alcohol level, this morning was normalized however overnight he started complaining of abdominal pain so a lipase and a CT scan were obtained. He does have a history of chronic pancreatitis secondary to alcohol use. He was admitted in April for pancreatitis his lipase at that time was over 5000. Here is only 400 however [facility] refused to take him. CT scan showed mild peripancreatic inflammation which is also consistent with both acute pancreatitis as well as chronic pancreatitis and he has had previous pseudocysts from his drinking. Repeat lipase was elevated a little over 800 which still does not meet criteria for pancreatitis. He states that he usually drinks to relax but he would not define himself as an alcoholic. He says that he only has 2 beers every couple nights. This time around he was drinking because his landlord told him that she sold the house he was living in and the new buyers wanted him to move out of his 2 bedroom apartment into a 1 bedroom apartment and that there can be increasing his rent by $50 a month. Hospital course: 1. Suicidal ideation with depression and history of chronic pancreatitis with mild abdominal pain and a slightly elevated lipase secondary to alcohol/anxiety/depression?56-year-old male came to the ER with suicidal ideation and a blood alcohol over 270. He was being evaluated by [facility] at which point his lipase came back at 401 which did not meet diagnostic criteria for pancreatitis however there is concern given his history that this could be a full-blown pancreatitis especially with some stranding on CT scan. Repeat lipase went up to 840 and is now down to 331. Potassium is little bit low today at 3.3 and this was replaced orally. He does need to continue to be placed for crisis secondary to the fact that his plan was to shoot himself in the head and he does have access to a gun at home. He has been medically cleared for transfer to the inpatient psych unit. He denies drinking excessively he was placed on CIWA protocols as a precaution since his blood alcohol was over 270, however this is the highest blood alcohol he has had on any presentation to the hospital. He has been tolerating a low-fat diet with minimal abdominal pain, which is likely to occur intermittently secondary to his chronic pancreatitis. I would recommend continued low-fat diet while at patient psych unit. 2. Hypertension, hyperlipidemia, type 2 diabetes, epilepsy, chronic pain with likely constipation medical illnesses which complicate his care. His home medications were continued where appropriate Physical Exam Narrative Const alert, oriented x3 and no apparent distress General Appearance: cooperative HEENT normocephalic Mouth: dry mucous membranes Eyes PERRL, EOMs intact bilaterally and conjunctivae normal Neck supple and no JVD Resp normal respiratory effort, no retractions, no use of accessory muscles and clear to auscultation bilaterally Auscultation: Negative for crackles, rales, rhonchi or wheezes Cardio regular rate, regular rhythm, S1 normal heart sound, S2 normal heart sound and no murmurs GI soft to palpation, nontender and non-distended; Negative for hepatosplenomegaly Extremity no clubbing, cyanosis or edema Skin no rashes or lesions noted Neuro no focal motor deficits and no sensory deficits noted Psych Psych Narrative: Suicidal ideation with a plan to shoot himself in the head with his gun Mood & Affect: depressed Weight / BMI Weight Weight: 197 lb 1.492 oz Body Mass Index (BMI) 28.3 ABG / Lab / Microbiology Data Result Diagrams: 12/09/21 05:30 12/09/21 05:30 Laboratory: Laboratory Results - last 24 hr 12/08/21 16:04: POC Glucose 138 H 12/08/21 22:06: POC Glucose 160 H 12/09/21 05:30: WBC 10.6, RBC 3.98 L, Hgb 12.7 L, Hct 36.2 L, MCV 91.0, MCH 31.9, MCHC 35.1, RDW Std Deviation 43.5, RDW Coeff of Armin 13.1, Plt Count 169, MPV 9.4, Immature Gran % (Auto) 0.400, Neut % (Auto) 68.3, Lymph % (Auto) 23.3, [place] % (Auto) 6.8, Eos % (Auto) 0.8, Baso % (Auto) 0.4, Absolute Neuts (auto) 7.2, Absolute Lymphs (auto) 2.47, Nucleated RBC % 0 12/09/21 05:30: Sodium 138, Potassium 3.3 L, Chloride 108 H, Carbon Dioxide 26.0, Anion Gap 4 L, BUN 10, Creatinine 0.87, Estim Creat Clear Calc 97.89, Est GFR (MDRD) Af Amer 116, Est GFR (MDRD) Non-Af 96, BUN/Creatinine Ratio 11.5, Glucose 98, Calcium 8.6, Total Bilirubin 1.00, AST 20, ALT 23, Alkaline Phosphatase 70, Total Protein 6.9, Albumin 3.6, Globulin 3.3, Albumin/Globulin Ratio 1.1 12/09/21 05:30: Lipase 331 12/09/21 06:15: POC Glucose 102 12/09/21 11:33: POC Glucose 188 H Microbiology: Microbiology 12/07/21 20:15 Nasal Secretion SARS-CoV-2 Antigen (Rapid) - Final D/C Instructions Discharge Diet: Low fat / Low cholesterol and Carb Control Diet Call your doctor if you observe: Fever of 101 or Higher, Shortness of breath, Dizziness, Fainting spells, Swelling in the ankles, Chest pain and Increased palpitations (irregular heartbeat) Meaningful Use Info Meaningful Use Diagnoses (Choose all that apply): None applicable Discharge Plan Admission Admit Date/Time: 12/08/21 09:58 Attending Provider: Dillon Harrell Primary Care Provider: Souleymane Kelly NP Discharge Orders/Prescriptions Prescriptions: Continued amitriptyline 25 mg tablet 25 mg PO QHS RF: 0 gabapentin 300 mg capsule 300 mg PO BID RF: 0 amlodipine 10 mg tablet 10 mg PO DAILY Qty: 30 RF: 11 lactulose 10 gram/15 mL solution 10 g PO DAILY Qty: 473 RF: 4 levetiracetam 500 mg tablet 500 mg PO BID Qty: 60 RF: 4 nitroglycerin 0.4 MG tablet 0.4 mg sublingual Q5M PRN (Reason: Chest Pain) RF: 0 metformin 500 MG tablet 500 mg PO BID RF: 0 loratadine 10 MG capsule 10 mg PO DAILY RF: 0 cholecalciferol (vitamin D3) 5,000 capsule 1 cap PO DAILY RF: 0 insulin glargine 100 UNIT/ML solution 10 unit SQ QHS RF: 0 losartan 50 MG tablet 25 mg PO DAILY RF: 0 acetaminophen 325 MG tablet 650 mg PO Q6H PRN PRN (Reason: Pain Score 1-10/Temp > 100.7 F) Qty: 30 RF: 1 hydromorphone [Dilaudid] 4 mg tablet 4 mg PO Q6H PRN (Reason: pain) 5 Days Qty: 20 RF: 0 oxycodone-acetaminophen [Percocet] 5-325 mg tablet 1 tab PO Q6H PRN (Reason: pain) 3 Days Qty: 12 RF: 0 latanoprost 0.005 % drops 1 drp EACH EYE QHS RF: 0 aspirin 81 mg tablet,chewable 81 mg PO DAILY@0800 Qty: 30 RF: 11 magnesium oxide 400 mg (241.3 mg magnesium) tablet 400 mg PO BID Qty: 60 RF: 11 hydrochlorothiazide 25 mg tablet 25 mg PO DAILY Qty: 30 RF: 11 pravastatin 40 mg tablet 40 mg PO DAILY Qty: 30 RF: 11 Referrals / Follow Up: Souleymane Kelly NP, [employer] MEDICINE SPECIALIST-C [Primary Care Provider] - Within 2 Weeks Disposition Disposition (needs filled in before D/C Order can be placed): Psychiatric Hospital or Unit Charges/Coding Visit Charges OBSV E&M: 93286 Observation care discharge
[2021-12-09] MEDS: Potassium Chloride Oral Tablet 20 MEQ 40 MEQ PO (13:31)
[2021-12-09 16:41] LABS: Bedside Glucose 174 mg/dL (74-106)
--- NOTE | 2021-12-09 17:23 | NURSING ---
[place] slip and repeated ETOH results faxed to [facility]
--- NOTE | 2021-12-09 18:17 | NURSING ---
Report called to [facility] UZAM Santiago at [phone].
--- NOTE | 2021-12-09 18:24 | NURSING ---
Voicemail left to CM regarding pt being worried about rent being due and pt being worried he will get evicted.
--- NOTE | 2021-12-09 18:26 | NURSING ---
Note left to social work / CM about pt being worried about going to [place] because rent is due and he needs to be home to pay it, stating has no contact information and they will put his stuff out on streets.
[2021-12-09 22:05] LABS: Bedside Glucose 186 mg/dL (74-106)
[2021-12-09] MEDS: HYDROmorphone 1 MG/ML Syringe IV (22:06)
[2021-12-09] MEDS: Amitriptyline 25 MG Tablet PO (22:06)
== END 2021-12-09 23:55 ==
LOC: ED 12-08 10:11 → PCU 12-08 10:29
PROVIDERS: Emergency Medicine; Admitting Provider Family Medicine; Emergency Provider Emergency Medicine; PCP Nurse Practitioner Family; Visit Provider Family Medicine
DX: F32.A Depression, unspecified (principal); F10.929 Alcohol use, unspecified with intoxication, unspecified; K86.1 Other chronic pancreatitis; G40.909 Epilepsy, unspecified, not intractable, without status epilepticus; E11.9 Type 2 diabetes mellitus without complications; Z79.4 Long term (current) use of insulin; K85.90 Acute pancreatitis without necrosis or infection, unspecified; G89.29 Other chronic pain; R45.851 Suicidal ideations; I10 Essential (primary) hypertension; E78.5 Hyperlipidemia, unspecified; R74.8 Abnormal levels of other serum enzymes; Z87.891 Personal history of nicotine dependence; Z79.82 Long term (current) use of aspirin; Z20.822 Contact with and (suspected) exposure to COVID-19; Z79.899 Other long term (current) drug therapy; Y90.8 Blood alcohol level of 240 mg/100 ml or more
CPT/HCPCS: 36415; 71045; 74177; 80048; 80053; 80307; 82077; 82962; 83690; 84484; 85025; 87811; 93005; 96361; 96372; 96374; 96375; 96376; 97802; 99218; 99284; J7030; Q9967; A4216; G0378; J2405

== ENCOUNTER 2022-02-27 12:17 | Inpatient (IN) | payer MEDICARE, MEDICAID, SELFPAY ==
[2022-02-27] VITALS (7 sets, daily range): BP systolic 144–187; BP diastolic 88–118; PULSE 95–105; RESP 18–30; TEMP 36.4–37.2; O2SAT 95–100; BMI 29.9; BMI 28.2
[2022-02-27] MEDS: HYDROmorphone 0.5 MG/0.5 ML SYRINGE IV (12:39)
[2022-02-27] MEDS: 0.9% Normal Saline 1,000 ML 999 ML IV (12:39)
[2022-02-27] MEDS: Ondansetron 4 MG/2 ML Vial IV (12:39)
--- NOTE | 2022-02-27 12:59 | EDS_ITS ---
HPI HPI - GI History of Present Illness Chief Complaint: Abd Pain Narrative Narrative: 56-year-old male with history of pancreatitis presenting with epigastric pain. He states it started today. Patient notes that he did not drink yesterday but the day before had beer and champagne. He had no problems until today. Patient expressed he has 2 episodes of nausea and vomiting. No constipation or diarrhea. No urinary symptoms. No fevers. [facility] Medical History Acute pancreatitis Anxiety and depression Cancer Chronic pain Constipation Diabetes mellitus type 2 in nonobese Essential (primary) hypertension Former tobacco use Gastric ulcer GERD (gastroesophageal reflux disease) GI bleed Glaucoma Hyperlipidemia Neck pain Pancreatitis PSA elevation PTSD (post-traumatic stress disorder) Seizure disorder Serum ammonia increased TIA (transient ischemic attack) Type 2 diabetes mellitus Vision loss of left eye Vision loss of right eye Home Medications nitroglycerin 0.4 mg SUBLINGUAL Q5M PRN 07/15/13 [History Last Taken 08/22/15] metformin 500 mg PO BID 11/28/13 [History Last Taken 06/06/19] loratadine 10 mg PO DAILY 06/01/17 [History Last Taken 06/06/19] amitriptyline 25 mg tablet 25 mg PO QHS 07/03/18 [History Last Taken 12/07/21] cholecalciferol (vitamin D3) 1 cap PO DAILY 11/09/18 [History Last Taken 06/06/19] aspirin 81 mg chewable tablet 81 mg PO DAILY@0800 #30 tab 04/09/20 [Rx Last Taken 12/07/21] magnesium oxide 400 mg (241.3 mg magnesium) tablet 400 mg PO BID #60 tab 04/09/20 [Rx Last Taken Unknown] hydrochlorothiazide 25 mg tablet 25 mg PO DAILY #30 tab 06/05/20 [Rx Last Taken Unknown] pravastatin 40 mg tablet 40 mg PO DAILY #30 tab 07/03/20 [Rx Last Taken Unknown] gabapentin 300 mg capsule 300 mg PO BID cap 10/06/20 [History Last Taken Unknown] insulin glargine 10 unit SQ QHS 12/30/20 [History Last Taken Unknown] losartan 25 mg PO DAILY 12/30/20 [History Last Taken Unknown] acetaminophen 650 mg PO Q6H PRN PRN #30 tablet 01/01/21 [Rx Last Taken Unknown] levetiracetam 500 mg tablet 500 mg PO BID #60 tab 09/02/21 [Rx Last Taken Unknown] amlodipine 10 mg tablet 10 mg PO DAILY #30 tab 09/10/21 [Rx Last Taken Unknown] latanoprost 1 drp EACH EYE QHS 12/07/21 [History Last Taken Unknown] lactulose 10 gram/15 mL oral solution 10 g PO DAILY #473 ml 01/13/22 [Rx Last Taken Unknown] pantoprazole 40 mg PO DAILY 02/27/22 [History Last Taken Unknown] tamsulosin 0.4 mg PO DAILY 02/27/22 [History Last Taken Unknown] Allergy/AdvReac Type Severity Reaction Status Date / Time lisinopril Allergy Angioedema Verified 02/27/22 12:22 cyclobenzaprine AdvReac Severe Skin Verified 02/27/22 12:22 crawling hydrocodone bitartrate AdvReac Itching Verified 02/27/22 12:22 [From Vicodin] morphine AdvReac Itching Verified 02/27/22 12:22 tramadol AdvReac Itching Verified 02/27/22 12:22 Family History Mother Heart disease Sister Cerebral aneurysm Surgical History History of cholecystectomy (12/2013) History of left heart catheterization (10/31/11) Social History Smoking Status: Former smoker Tobacco: How many years used: 7 Electronic Cigarette Use: not used alcohol intake: current alcohol intake frequency: holidays/special occasions only Alcohol type: beer details: states a couple beers every now on then, does not have daily substance use type: does not use ROS ROS ED Constitutional Constitutional ED: Denies chills or fever(s) ENT ENT ED: Denies rhinorrhea or sore throat Cardiovascular Cardiovascular: Denies chest pain or palpitations Respiratory/Chest Respiratory/Chest: Denies cough or dyspnea Gastrointestinal Gastrointestinal: Reports abdominal pain, nausea and vomiting Genitourinary Genitourinary ED: Denies dysuria or hematuria Musculoskeletal Musculoskeletal: Denies arthralgias or myalgias Integumentary Denies abscess or rash Neurologic Neurologic: Denies headache(s), paresthesias or weakness Psychiatric Psychiatric: Denies anxiety or depression Endocrine Endocrinology: Denies polyuria EXAM Physical Exam Const Vital Signs: 02/27/22 12:20 Temperature 98.7 F Temperature Source Temporal Pulse Rate 105 H Respiratory Rate 23 H Blood Pressure 159/100 H Blood Pressure Mean 119 Pulse Ox 99 Oxygen Delivery Method Room Air Positive well nourished General Appearance ED: NAD; Negative for pallor HEENT Reports moist mucous membranes normocephalic and trauma Eyes PERRL and EOMs intact bilaterally Neck no lymphadenopathy and supple Resp normal respiratory effort and clear to auscultation bilaterally Cardio regular rate and regular rhythm GI Palpation: soft and tender epigastric Neuro CN's II-XII intact bilaterally Sensorium / Orientation: alert, oriented to person, oriented to place and oriented to time Psych mental status grossly normal Skin General Skin Exam: Negative for jaundice or pallor Lesions: no lesions Rashes: no rashes MDM MDM MDM Narrative Medical decision making narrative: 56-year-old male presenting with epigastric pain and a history of pancreatitis. Patient given IV fluids, 0.5 mg of Dilaudid, Zofran. Blood work is obtained and he has a slight leukocytosis of 12.8. Hemoglobin stable at 15. Platelets are normal at 197. Renal function and electrolytes within normal limits. Ammonia within normal limits. LFTs are normal. Lipase is 1557. EtOH negative. Patient reevaluated and required a second dose of Dilaudid. He was given 1 mg of IV Dilaudid. Due to the abdomen pelvis is pending and patient was reevaluated at 3:15 PM and still holding his abdomen and seems to be in a lot of pain. He is given another dose of [address] of the abdomen pelvis shows inflammation of the pancreas without any focal abscess or cyst. Since patient is requiring multiple doses of Dilaudid to control his pain I spoke with the hospitalist for admission. Patient was amenable to this. Impression: 1. Acute pancreatitis 2. Leukocytosis Lab Data Attestation: I reviewed the patient's lab results. Labs: Laboratory Results - last 24 hr 02/27/22 02/27/22 02/27/22 12:24 12:24 12:24 WBC 12.8 H RBC 4.65 Hgb 15.0 Hct 41.6 MCV 89.5 MCH 32.3 H MCHC 36.1 H RDW Std Deviation 42.2 RDW Coeff of Armin 12.8 Plt Count 197 MPV 10.4 Immature Gran % (Auto) 0.400 Neut % (Auto) 74.9 H Lymph % (Auto) 16.3 L [place] % (Auto) 7.6 Eos % (Auto) 0.3 Baso % (Auto) 0.5 Absolute Neuts (auto) 9.6 H Absolute Lymphs (auto) 2.09 Nucleated RBC % 0 Sodium 136 Potassium 4.3 Chloride 105 Carbon Dioxide 25.0 Anion Gap 6 BUN 9 Creatinine 1.10 Estim Creat Clear Calc 74.98 Est GFR (MDRD) Af Amer 89 Est GFR (MDRD) Non-Af 73 BUN/Creatinine Ratio 8.2 L Glucose 153 H Calcium 9.8 Total Bilirubin 0.60 AST 24 ALT 30 Alkaline Phosphatase 73 Ammonia Total Protein 8.5 H Albumin 4.4 Globulin 4.1 Albumin/Globulin Ratio 1.1 Lipase 1557 H Ethyl Alcohol < 3.0 02/27/22 12:24 WBC RBC Hgb Hct MCV MCH MCHC RDW Std Deviation RDW Coeff of Armin Plt Count MPV Immature Gran % (Auto) Neut % (Auto) Lymph % (Auto) [place] % (Auto) Eos % (Auto) Baso % (Auto) Absolute Neuts (auto) Absolute Lymphs (auto) Nucleated RBC % Sodium Potassium Chloride Carbon Dioxide Anion Gap BUN Creatinine Estim Creat Clear Calc Est GFR (MDRD) Af Amer Est GFR (MDRD) Non-Af BUN/Creatinine Ratio Glucose Calcium Total Bilirubin AST ALT Alkaline Phosphatase Ammonia < 10.0 L Total Protein Albumin Globulin Albumin/Globulin Ratio Lipase Ethyl Alcohol Radiography Diagnostic Testing: Clinical Impression(s) from Imaging Studies Abdomen/Pelvis CT 02/27/22 14:24 IMPRESSION: 1. Inflammatory stranding surrounding the pancreatic head and body consistent with acute pancreatitis, clinically correlate with underlying laboratory values. No evidence of focal fluid collection or abscess. Otherwise no additional acute intra-abdominal process. Electronically Signed: Juventino Cisneros DO at 15:17 EDT , Discharge Plan Triage Chief Complaint: Abd Pain ED Provider: Yahir Arteaga Dx/Rx/DC Orders Prescriptions: No Action amitriptyline 25 mg tablet 25 mg PO QHS RF: 0 gabapentin 300 mg capsule 300 mg PO BID RF: 0 amlodipine 10 mg tablet 10 mg PO DAILY Qty: 30 RF: 11 levetiracetam 500 mg tablet 500 mg PO BID Qty: 60 RF: 4 nitroglycerin 0.4 MG tablet 0.4 mg sublingual Q5M PRN (Reason: Chest Pain) RF: 0 metformin 500 MG tablet 500 mg PO BID RF: 0 loratadine 10 MG capsule 10 mg PO DAILY RF: 0 cholecalciferol (vitamin D3) 5,000 capsule 1 cap PO DAILY RF: 0 insulin glargine 100 UNIT/ML solution 10 unit SQ QHS RF: 0 losartan 50 MG tablet 25 mg PO DAILY RF: 0 acetaminophen 325 MG tablet 650 mg PO Q6H PRN PRN (Reason: Pain Score 1-10/Temp > 100.7 F) Qty: 30 RF: 1 latanoprost 0.005 % drops 1 drp EACH EYE QHS RF: 0 tamsulosin 0.4 mg Capsule 0.4 mg PO DAILY RF: 0 pantoprazole 40 mg Tablet,Delayed Release (Dr/Ec) 40 mg PO DAILY RF: 0 aspirin 81 mg tablet,chewable 81 mg PO DAILY@0800 Qty: 30 RF: 11 magnesium oxide 400 mg (241.3 mg magnesium) tablet 400 mg PO BID Qty: 60 RF: 11 hydrochlorothiazide 25 mg tablet 25 mg PO DAILY Qty: 30 RF: 11 pravastatin 40 mg tablet 40 mg PO DAILY Qty: 30 RF: 11 lactulose 10 gram/15 mL solution 10 g PO DAILY Qty: 473 RF: 0 Primary Care Provider: Souleymane Kelly NP
[2022-02-27 13:11] LABS: Absolute Lymphocyte Count 2.09 X10^3/uL (0.83-4.51); Absolute Neutrophil Count 9.6 X10^3/uL (2.0-7.7); Basophil# 0.06 X10^3/uL; Basophil% 0.5 % (0-1); Eosinophil# 0.04 X10^3/uL; Eosinophils% 0.3 % (0-5); Hematocrit 41.6 % (40-54); Lymphocyte # 2.09 X10^3/ul (0.83-4.51); Lymphocyte % 16.3 % (19-41); Mean Corp Hgb Conc 36.1 g/dL (32-36); Mean Corpuscular Hgb 32.3 pg (27.0-32.0); Mean Corpuscular Volume 89.5 fL (80-94); Mean Platelet Vol. 10.4 fl (6.2-12.0); Monocyte# 0.97 X10^3/uL; Monocyte% 7.6 % (0-10); NRBC Flagged by Analyzer 0 % (0-5); Neutrophil # 9.62 X10^3/uL (2.7-7.7); Neutrophil % 74.9 % (47-70); Platelet Count 197 K/mm3 (150-450); RBC Distribution Width CV 12.8 % (11.6-14.6); RBC Distribution Width SD 42.2 fl (35.1-43.9); Red Blood Count 4.65 M/mm3 (4.6-6.2); White Blood Count 12.8 K/mm3 (4.4-11.0)
[2022-02-27 13:18] LABS: Alcohol, Blood (Medical)-Serum < 3.0 mg/dL
[2022-02-27 13:20] LABS: Ammonia < 10.0 umol/L (11-32)
[2022-02-27 13:27] LABS: ALB/GLOB Ratio 1.1 RATIO (0.9-2.4); AST(SGOT) 24 U/L (15-37); Alanine Aminotransfer ALT/SGPT 30 U/L (16-61); Albumin, Serum 4.4 g/dL (3.2-5.0); Alkaline Phosphatase 73 U/L (45-117); Anion Gap 6 (5-15); BUN 9 mg/dL (7-18); BUN/Creat Ratio 8.2 RATIO (10-20); Calcium,Total 9.8 mg/dL (8.5-10.1); Chloride 105 mmol/L (98-107); EST Glomerular Filtration Rate 73 mL/min (>60); Est Glom Filt Rate - Afr Amer 89 mL/min (>60); Estimated Creatinine Clearance 74.98 ml/min; Globulin 4.1 g/dL (2.2-4.2); Glucose 153 mg/dL (74-106); Lipase 1557 U/L (73-393); Potassium 4.3 mmol/L (3.5-5.1); Protein, Total 8.5 g/dL (6.4-8.2); Sodium Level 136 mmol/L (136-145)
[2022-02-27] MEDS: HYDROmorphone 1 MG/ML Syringe IV ×3 (13:32→18:46)
--- NOTE | 2022-02-27 14:24 | CT_ITS ---
STUDY: CT ABDOMEN AND PELVIS WITH CONTRAST REASON FOR EXAM: Male, 56 years old. abdominal pain-epigastric. prior cholecystectomy RADIATION DOSAGE (If Supplied By Facility): CTDIvol = ( 11.78 ) mGy, DLP = ( 869.92 ) mGycm TECHNIQUE: Transaxial images were obtained from the dome of the diaphragm to the symphysis pubis without oral contrast. IV 100mL Isovue-300 was administered. Sagittal and coronal images were reconstructed. Individualized dose optimization techniques were used for this CT. COMPARISON: None. FINDINGS: The visualized lung bases are unremarkable. The visualized portions of the heart are within normal limits. Left hepatic lobe peripheral 1 cm hypodensity likely representing small cyst is present though too small to fully characterize. There is non-visualization of the gallbladder, which may be secondary to either contraction or a prior cholecystectomy. Normal spleen. Inflammatory stranding surrounding the head of the pancreas is present with no focal fluid collection concerning for acute pancreatitis. Normal bilateral adrenal glands. Normal right kidney. Normal left kidney. Normal visualized stomach. Normal small intestine. Normal colon. The appendix is visualized and appears normal. There is diffuse atherosclerotic calcification of the abdominal aorta, without a demonstrated aneurysm. Normal inferior vena cava. Normal retroperitoneum. Normal urinary bladder. There is enlargement of the prostate gland. Normal abdominal wall. Normal osseous structures. CT/Abdomen/Pelvis W IV Cont ONLY IMPRESSION: 1. Inflammatory stranding surrounding the pancreatic head and body consistent with acute pancreatitis, clinically correlate with underlying laboratory values. No evidence of focal fluid collection or abscess. Otherwise no additional acute intra-abdominal process. Electronically Signed: Juventino Cisneros DO at 15:17 EDT ,
--- NOTE | 2022-02-27 15:41 | HP.PCM.HOS_ITS ---
HPI - General General Date of Admission: 02/27/22 Date of Service: 02/27/22 Chief Complaint: Abdominal pain HPI Narrative BRANDON WELLER, is a 56 M who presents with abdominal pain. Patient has history of chronic pancreatitis with previous history of alcohol dependence who had remained sober for couple of months. Had some alcoholic beverages a day prior to coming in. Per patient he drank beer and champagne. Woke up on the morning of his admission with abdominal pain. Pain was located in the mid abdomen radiating to the back. He also did develop nausea and vomiting. In view of the persistent nature of his symptoms presented to the emergency department. His assessment was consistent with acute pancreatitis did receive pain meds in the ED and admitted to regular nursing floor for further management [facility] Medical History (Updated 02/27/22 @ 16:[address] Mg Patel MD) Acute pancreatitis Anxiety and depression Cancer Chronic pain Constipation Diabetes mellitus type 2 in nonobese Essential (primary) hypertension Former tobacco use Gastric ulcer GERD (gastroesophageal reflux disease) GI bleed Glaucoma Hyperlipidemia Neck pain Pancreatitis PSA elevation PTSD (post-traumatic stress disorder) Seizure disorder Serum ammonia increased TIA (transient ischemic attack) Type 2 diabetes mellitus Vision loss of left eye Vision loss of right eye Home Medications nitroglycerin 0.4 mg SUBLINGUAL Q5M PRN 07/15/13 [History Last Taken 08/22/15] metformin 500 mg PO BID 11/28/13 [History Last Taken 06/06/19] loratadine 10 mg PO DAILY 06/01/17 [History Last Taken 06/06/19] amitriptyline 25 mg tablet 25 mg PO QHS 07/03/18 [History Last Taken 12/07/21] cholecalciferol (vitamin D3) 1 cap PO DAILY 11/09/18 [History Last Taken 06/06/19] aspirin 81 mg chewable tablet 81 mg PO DAILY@0800 #30 tab 04/09/20 [Rx Last Taken 12/07/21] magnesium oxide 400 mg (241.3 mg magnesium) tablet 400 mg PO BID #60 tab 04/09/20 [Rx Last Taken Unknown] hydrochlorothiazide 25 mg tablet 25 mg PO DAILY #30 tab 06/05/20 [Rx Last Taken Unknown] pravastatin 40 mg tablet 40 mg PO DAILY #30 tab 07/03/20 [Rx Last Taken Unknown] gabapentin 300 mg capsule 300 mg PO BID cap 10/06/20 [History Last Taken Unknown] insulin glargine 10 unit SQ QHS 12/30/20 [History Last Taken Unknown] losartan 25 mg PO DAILY 12/30/20 [History Last Taken Unknown] acetaminophen 650 mg PO Q6H PRN PRN #30 tablet 01/01/21 [Rx Last Taken Unknown] levetiracetam 500 mg tablet 500 mg PO BID #60 tab 09/02/21 [Rx Last Taken Unknown] amlodipine 10 mg tablet 10 mg PO DAILY #30 tab 09/10/21 [Rx Last Taken Unknown] latanoprost 1 drp EACH EYE QHS 12/07/21 [History Last Taken Unknown] lactulose 10 gram/15 mL oral solution 10 g PO DAILY #473 ml 01/13/22 [Rx Last Taken Unknown] pantoprazole 40 mg PO DAILY 02/27/22 [History Last Taken Unknown] tamsulosin 0.4 mg PO DAILY 02/27/22 [History Last Taken Unknown] Allergy/AdvReac Type Severity Reaction Status Date / Time lisinopril Allergy Angioedema Verified 02/27/22 12:22 cyclobenzaprine AdvReac Severe Skin Verified 02/27/22 12:22 crawling hydrocodone bitartrate AdvReac Itching Verified 02/27/22 12:22 [From Vicodin] morphine AdvReac Itching Verified 02/27/22 12:22 tramadol AdvReac Itching Verified 02/27/22 12:22 Family History Mother Heart disease Sister Cerebral aneurysm Surgical History History of cholecystectomy (12/2013) History of left heart catheterization (10/31/11) Social History Smoking Status: Former smoker Tobacco: How many years used: 7 Electronic Cigarette Use: not used alcohol intake: current alcohol intake frequency: holidays/special occasions only Alcohol type: beer details: states a couple beers every now on then, does not have daily substance use type: does not use ROS ROS Narrative GENERAL: denies fever, chills, night sweats, HEENT: denies headache, sinus congestion, RESPIRATORY: denies cough, sputum production, CARDIAC: denies chest pain, palpitations, orthopnea, GASTROINTESTINAL: abdominal pain, nausea, vomiting, melena, GENITOURINARY: denies dysuria, urgency, frequency, heamaturia EXTREMITY: denies swelling MUSCULOSKELETAL: denies current joint pain or tenderness NEUROLOGIC: denies focal numbness, weakness, tingling HEMATOLOGIC: denies easy bruising and/or hemorrhage INTEGUMENT: denies rashes PSYCHIATRIC: denies suicidal or homicidal ideation Vital Signs Vital Signs Vital Signs: 02/27/22 12:20 02/27/22 15:34 Temperature 98.7 F Temperature Source Temporal Pulse Rate 105 H 97 Respiratory Rate 23 H 30 H Blood Pressure 159/100 H 187/118 H Blood Pressure Mean 119 141 Pulse Ox 99 95 Oxygen Delivery Method Room Air Weight Weight: 91.9 kg Body Mass Index (BMI) 29.9 Physical Exam Narrative GENERAL: cooperative HEENT: Atraumatic; EYES; Anicteric, Normal Conjunctiva NECK; supple, normal thyroid, RESPIRATORY: Diminished to auscultation CARDIOVASCULAR: Regular S1 S2, GI: soft, normoactive bowel sounds, : No Renal angle tenderness; EXTREMITIES: No edema, no clubbing, MUSCULOSKELETAL: no muscle wasting NEURO: Awake; no lateralizing signs. SKIN: No Rash PSYCH; Flat affect Results Lab / Micro Data Result Diagrams: 02/27/22 12:24 02/27/22 12:24 Labs: Laboratory Results - last 24 hr 02/27/22 12:24: WBC 12.8 H, RBC 4.65, Hgb 15.0, Hct 41.6, MCV 89.5, MCH 32.3 H, MCHC 36.1 H, RDW Std Deviation 42.2, RDW Coeff of Armin 12.8, Plt Count 197, MPV 10.4, Immature Gran % (Auto) 0.400, Neut % (Auto) 74.9 H, Lymph % (Auto) 16.3 L, [place] % (Auto) 7.6, Eos % (Auto) 0.3, Baso % (Auto) 0.5, Absolute Neuts (auto) 9.6 H, Absolute Lymphs (auto) 2.09, Nucleated RBC % 0 02/27/22 12:24: Sodium 136, Potassium 4.3, Chloride 105, Carbon Dioxide 25.0, Anion Gap 6, BUN 9, Creatinine 1.10, Estim Creat Clear Calc 74.98, Est GFR (MDRD) Af Amer 89, Est GFR (MDRD) Non-Af 73, BUN/Creatinine Ratio 8.2 L, Glucose 153 H, Calcium 9.8, Total Bilirubin 0.60, AST 24, ALT 30, Alkaline Phosphatase 73, Total Protein 8.5 H, Albumin 4.4, Globulin 4.1, Albumin/Globulin Ratio 1.1, Lipase 1557 H 02/27/22 12:24: Ethyl Alcohol < 3.0 02/27/22 12:24: Ammonia < 10.0 L Radiology Impression Abdomen/Pelvis CT 02/27/22 14:24 IMPRESSION: 1. Inflammatory stranding surrounding the pancreatic head and body consistent with acute pancreatitis, clinically correlate with underlying laboratory values. No evidence of focal fluid collection or abscess. Otherwise no additional acute intra-abdominal process. Electronically Signed: Juventino Cisneros DO at 15:17 EDT Reading Location ID and State: [facility] / [place] , Service support , Assessment & Plan Assessment/Plan (1) Acute pancreatitis: QUALIFIERS: Pancreatitis type: unspecified pancreatitis type Acute pancreatitis complication: unspecified Qualified Code(s): K85.90 - Acute pancreatitis without necrosis or infection, unspecified PLAN: Patient is a 56-year-old gentleman admitted with abdominal pain 1. Acute pancreatitis ? Admitted to regular nursing floor currently being managed with bowel rest, pain meds antinausea medication as well as PPI plan is to initiate oral diet as soon as patient pain improves 2. Accelerated hypertension ? As a result of patient's significant abdominal pain do expect improvement in patient BP once pain control improved. In the meantime did initiate patient oral medications except for HCTZ in view of his pancreatitis 3. Diabetes mellitus type 2 ?Patient is on long-acting insulin Lantus 10 units at bedtime this was continued held Metformin. Placed on Accu-Cheks before meals and at bedtime with sliding scale coverage 4. Seizure disorder Continue with the levetiracetam 5. DVT prophylaxis - On enoxaparin Charges/Coding Visit Charges Inpatient E&M: 96897 Init Hosp L3
[2022-02-27] MEDS: DiphenhydrAMINE 50 MG/ML Syringe 25 MG IV (16:44)
[2022-02-27] MEDS: 0.9% Normal Saline 1,000 ML 175 ML IV ×2 (16:44→22:36)
[2022-02-27] MEDS: 0.9% Saline Lock 10 ML Syringe IV ×2 (16:44→18:46)
[2022-02-27 17:25] LABS: Bacteria 0 SEEN /hpf (None Seen); Mucous, Urine 0 SEEN /hpf (<or=2+); Red Blood Cells-Urine 0 SEEN /hpf (0-5); Squamous Epithelial Cells - UA 0 SEEN /hpf (0-5); White Blood Cells 0 SEEN /hpf (0-5)
[2022-02-27 17:26] LABS: Bedside Glucose 148 mg/dL (74-106)
[2022-02-27 17:30] LABS: Color, Urine Yellow (Yellow); Glucose, Dipstick Normal (Normal); Ketone-Dipstick Negative (Negative); Leukocyte Esterase-Dipstick Negative /ul (Negative); Nitrite-Dipstick Negative (Negative); Occult Blood-Urine 10 /ul (Negative); Protein-Dipstick 100 mg/dl (Negative); Urine Bilirubin Dipstick Negative (Negative); Urine Clarity Clear (Clear); Urine Urobilinogen Normal (Normal); Urine pH 6.5 (5.0 - 8.0)
[2022-02-27] MEDS: Gabapentin 300 MG Capsule PO (18:51)
[2022-02-27] MEDS: Amitriptyline 25 MG Tablet PO (22:38)
[2022-02-27] MEDS: levETIRAcetam 500 MG Tablet PO (22:38)
[2022-02-27] MEDS: Pravastatin 20 MG Tablet 60 MG PO (22:38)
[2022-02-27] MEDS: MELATONIN 3 MG TABLET PO (22:41)
[2022-02-28] MEDS: 0.9% Saline Lock 10 ML Syringe IV (00:05)
[2022-02-28] MEDS: HYDROmorphone 1 MG/ML Syringe IV ×2 (00:05→09:38)
[2022-02-28 00:21] LABS: Bedside Glucose 118 mg/dL (74-106)
[2022-02-28 04:18] VITALS: BP 160/93; PULSE 94; RESP 18; TEMP 36.6; O2SAT 92
[2022-02-28] MEDS: Gabapentin 600 MG Tablet PO (04:23)
[2022-02-28] MEDS: 0.9% Normal Saline 1,000 ML 175 ML IV ×2 (04:24→10:24)
[2022-02-28 06:19] VITALS: BP 139/83; PULSE 94
[2022-02-28 06:29] LABS: Absolute Lymphocyte Count 0.86 X10^3/uL (0.83-4.51); Absolute Neutrophil Count 9.9 X10^3/uL (2.0-7.7); Basophil# 0.04 X10^3/uL; Basophil% 0.3 % (0-1); Eosinophil# 0.06 X10^3/uL; Eosinophils% 0.5 % (0-5); Hematocrit 39.7 % (40-54); Hemoglobin 13.6 g/dL (13.0-16.5); Lymphocyte # 0.86 X10^3/ul (0.83-4.51); Lymphocyte % 7.2 % (19-41); Mean Corp Hgb Conc 34.3 g/dL (32-36); Mean Corpuscular Hgb 31.7 pg (27.0-32.0); Mean Corpuscular Volume 92.5 fL (80-94); Mean Platelet Vol. 9.1 fl (6.2-12.0); Monocyte# 1.09 X10^3/uL; Monocyte% 9.1 % (0-10); NRBC Flagged by Analyzer 0 % (0-5); Neutrophil # 9.88 X10^3/uL (2.7-7.7); Neutrophil % 82.6 % (47-70); Platelet Count 162 K/mm3 (150-450); RBC Distribution Width CV 13.3 % (11.6-14.6); RBC Distribution Width SD 44.8 fl (35.1-43.9); Red Blood Count 4.29 M/mm3 (4.6-6.2)
[2022-02-28 06:31] LABS: Bedside Glucose 129 mg/dL (74-106)
[2022-02-28 06:54] LABS: Phosphorus 1.9 mg/dL (2.5-4.9)
[2022-02-28 06:59] LABS: AST(SGOT) 24 U/L (15-37); Alanine Aminotransfer ALT/SGPT 24 U/L (16-61); Albumin, Serum 3.8 g/dL (3.2-5.0); Alkaline Phosphatase 64 U/L (45-117); Anion Gap 6 (5-15); BUN 8 mg/dL (7-18); BUN/Creat Ratio 9.6 RATIO (10-20); Bilirubin, Direct 0.28 mg/dL (0.00-0.30); Calcium,Total 8.7 mg/dL (8.5-10.1); Chloride 106 mmol/L (98-107); Creatinine, Serum 0.84 mg/dL (0.70-1.30); EST Glomerular Filtration Rate 101 mL/min (>60); Est Glom Filt Rate - Afr Amer 122 mL/min (>60); Estimated Creatinine Clearance 101.39 ml/min; Globulin 3.5 g/dL (2.2-4.2); Glucose 134 mg/dL (74-106); Lipase 2233 U/L (73-393); Magnesium 1.6 mg/dL (1.6-2.6); Potassium 3.7 mmol/L (3.5-5.1); Protein, Total 7.3 g/dL (6.4-8.2); Sodium Level 137 mmol/L (136-145)
[2022-02-28 09:27] VITALS: BP 141/98; PULSE 90; RESP 16; TEMP 36.9; O2SAT 96
[2022-02-28] MEDS: amLODIPine 10 MG Tablet PO (09:29)
[2022-02-28] MEDS: Tamsulosin HCl 0.4 MG Capsule PO (09:29)
[2022-02-28] MEDS: Aspirin 81 MG TAB.CHEW PO (09:29)
[2022-02-28] MEDS: levETIRAcetam 500 MG Tablet PO ×2 (09:30→22:09)
[2022-02-28] MEDS: Enoxaparin 40 MG/0.4 ML Syringe SC (09:30)
[2022-02-28] MEDS: Losartan Potassium 25 MG Tablet PO (09:30)
[2022-02-28] MEDS: Lactulose 20 GM/30 ML UDC 10 GM PO (09:37)
[2022-02-28] MEDS: DiphenhydrAMINE 50 MG/ML Syringe 12.5 MG IV (09:37)
[2022-02-28] MEDS: Loratadine 10 MG Tablet PO (09:38)
[2022-02-28] MEDS: Acetaminophen 325 MG Tablet 650 MG PO (09:38)
[2022-02-28] MEDS: Gabapentin 300 MG Capsule PO ×2 (09:51→22:09)
--- NOTE | 2022-02-28 12:11 | PN.HOSP_ITS ---
Subjective Subjective Patient states his abdominal pain is about the same. Indicates that the Dilaudid is making him itch. We discussed that all narcotics can cause itchiness due to histamine release and we discussed starting some Benadryl to see if this would help him tolerate them better. We did discuss that he needs to stop drinking. He acknowledged this fact and indicated he did not have that much to drink however he did acknowledge that he was drinking beer and champagne. Objective Data Objective Data Vital Signs: Vital Signs Temp Pulse Resp BP Pulse Ox 98.5 F 90 16 141/98 H 96 02/28/22 09:27 02/28/22 09:27 02/28/22 09:27 02/28/22 09:27 02/28/22 09:27 Oxygen Delivery Method Room Air Weight: 89.2 kg Body Mass Index (BMI) 28.2 Intake & Output: Intake and Output for Last 24 Hours 02/26/22 02/27/22 02/28/22 23:59 23:59 23:59 Intake Total 2160 / 2160 2110 / 2110 Output Total 1050 / 1050 550 / 550 Balance 1110 / 1110 1560 / 1560 Lab / Micro Data Result Diagrams: 02/28/22 06:14 02/28/22 06:14 Labs: Laboratory Results - last 24 hr 02/27/22 12:24: WBC 12.8 H, RBC 4.65, Hgb 15.0, Hct 41.6, MCV 89.5, MCH 32.3 H, MCHC 36.1 H, RDW Std Deviation 42.2, RDW Coeff of Armin 12.8, Plt Count 197, MPV 10.4, Immature Gran % (Auto) 0.400, Neut % (Auto) 74.9 H, Lymph % (Auto) 16.3 L, [place] % (Auto) 7.6, Eos % (Auto) 0.3, Baso % (Auto) 0.5, Absolute Neuts (auto) 9.6 H, Absolute Lymphs (auto) 2.09, Nucleated RBC % 0 02/27/22 12:24: Sodium 136, Potassium 4.3, Chloride 105, Carbon Dioxide 25.0, Anion Gap 6, BUN 9, Creatinine 1.10, Estim Creat Clear Calc 74.98, Est GFR (MD ESCOBAR) Af Amer 89, Est GFR (MDRD) Non-Af 73, BUN/Creatinine Ratio 8.2 L, Glucose 153 H, Calcium 9.8, Total Bilirubin 0.60, AST 24, ALT 30, Alkaline Phosphatase 73, Total Protein 8.5 H, Albumin 4.4, Globulin 4.1, Albumin/Globulin Ratio 1.1, Lipase 1557 H 02/27/22 12:24: Ethyl Alcohol < 3.0 02/27/22 12:24: Ammonia < 10.0 L 02/27/22 17:17: Urine Color Yellow, Urine Clarity Clear, Urine pH 6.5, Ur Specific [place] 1.010, Urine Protein 100 H, Urine Glucose (UA) Normal, Urine Ketones Negative, Urine Occult Blood 10 H, Urine Nitrite Negative, Urine Bilirubin Negative, Urine Urobilinogen Normal, Ur Leukocyte Esterase Negative, Urine RBC 0 SEEN, Urine WBC 0 SEEN, Ur Squamous Epith Cells 0 SEEN, Urine Bacteria 0 SEEN, Urine Mucus 0 SEEN 02/27/22 17:19: POC Glucose 148 H 02/28/22 00:13: POC Glucose 118 H 02/28/22 06:14: Sodium 137, Potassium 3.7, Chloride 106, Carbon Dioxide 25.0, Anion Gap 6, BUN 8, Creatinine 0.84, Estim Creat Clear Calc 101.39, Est GFR (MDRD) Af Amer 122, Est GFR (MDRD) Non-Af 101, BUN/Creatinine Ratio 9.6 L, Glucose 134 H, Calcium 8.7, Magnesium 1.6, Total Bilirubin 1.00, Direct Biliru bin 0.28, AST 24, ALT 24, Alkaline Phosphatase 64, Total Protein 7.3, Albumin 3.8, Globulin 3.5, Lipase 2233 H 02/28/22 06:14: WBC 12.0 H, RBC 4.29 L, Hgb 13.6, Hct 39.7 L, MCV 92.5, MCH 31.7, MCHC 34.3, RDW Std Deviation 44.8 H, RDW Coeff of Armin 13.3, Plt Count 162, MPV 9.1, Immature Gran % (Auto) 0.300, Neut % (Auto) 82.6 H, Lymph % (Auto) 7.2 L, [place] % (Auto) 9.1, Eos % (Auto) 0.5, Baso % (Auto) 0.3, Absolute Neuts (auto) 9.9 H, Absolute Lymphs (auto) 0.86, Nucleated RBC % 0 02/28/22 06:14: Phosphorus 1.9 L 02/28/22 06:17: POC Glucose 129 H Radiography Diagnostic Testing: Radiology Impression Abdomen/Pelvis CT 02/27/22 14:24 IMPRESSION: 1. Inflammatory stranding surrounding the pancreatic head and body consistent with acute pancreatitis, clinically correlate with underlying laboratory values. No evidence of focal fluid collection or abscess. Otherwise no additional acute intra-abdominal process. Electronically Signed: Juventino Cisneros DO at 15:17 EDT Reading Location ID and State: [facility] / [place] , Service support , Physical Exam Const alert, oriented x3 and no apparent distress Constitutional Narrative: Overweight middle-aged -Martiniquais male sitting u p in bed, appears nontoxic Exam Limitations: no limitations Nutritional Appearance: overweight HEENT head/scalp atraumatic and moist oral mucous membranes Head and Scalp: normocephalic Resp normal respiratory effort, no retractions, no use of accessory muscles and clear to auscultation bilaterally Auscultation: Negative for crackles, rales, rhonchi or wheezes Cardio regular rate, regular rhythm, S1 normal heart sound, S2 normal heart sound, no murmurs, no rub, no gallops, no clicks and no JVD GI soft to palpation and non-distended GI Narrative: Bowel sounds are normal active Palpation: tender epigastric and RUQ Extremity no clubbing, cyanosis or edema Peripheral Pulses: Yes pulses 2+ throughout Neuro oriented x3, CN's II-XII intact bilaterally, moves all extremities and no focal motor deficits Sensorium / Orientation: awake and alert Speech: speech normal Psych affect normal Psych Narrative: Appropriately interactive Assessment & Plan Assessment/Plan (1) Acute pancreatitis: QUALIFIERS: Pancreatitis type: unspecified pancreatitis type Acute pancreatitis complication: unspecified Qualified Code(s): K85.90 - Acute pancreatitis without necrosis or infection, unspecified (2) Hypophosphatemia: (3) Leukocytosis: PLAN: Acute on chronic pancreatitis -Patient with extensive work-up approximately 1 year ago for this including abdominal ultrasound and MRCP -Ultrasound showed fatty liver and obscured pancreas -MRCP was reported out as normal after cholecystectomy -Sinew to hold HCTZ as this medication has been known to cause acute pancre atitis -Most likely related to his alcohol consumption--> discussed extensively with patient and strongly recommended complete cessation -Continue aggressive IV fluids with normal saline at 175 cc/h -As needed pain medication with addition of Benadryl for histamine release with narcotic use -N.p.o. except for medications -Repeat lipase was up slightly today and patient is clinically about the same -Need to continue to repeat lipase and will monitor clinically Leukocytosis -Very mild -Suspect reactive Hypophosphatemia -Phos bolus -Repeat Phos level in a.m. Hypertension -Hold hydrochlorothiazide with acute pancreatitis -Continue amlodipine/losartan -As needed hydralazine DM-2 -Sliding scale -Accu-Cheks every 6 -Hold home metformin -Restart home glargine once p.o. intake has resumed -A.m. fasting blood sugar was 134 Neuropathy -Continue gabapentin -Continue amitriptyline History of seizure disorder -Continue home Keppra History of hyperammonemia -Continue home lactulose GERD -Continue Protonix Hyperlipidemia -Continue pravastatin BPH -Continue Flomax DVT prophylaxis -Continue enoxaparin CODE STATUS -Full code Charges/Coding Visit Charges Inpatient E&M: 42355 Subs Hosp L2
[2022-02-28 12:41] LABS: Bedside Glucose 121 mg/dL (74-106)
--- NOTE | 2022-02-28 13:40 | CASEMGMT ---
RN CM DISPLAYER MERCHANDISE CM to room to meet with patient for initial transition planning/care coordination assessment. UZMA BAKER introduced self and role at [facility]. Pt voices understanding and consents to assessment at this time. Pt resting in bed in no distress at this time. Pt is A/O at this time and answers all questions appropriately. Care providers, pharmacy, and demographics verified/updated at this time. PCP: Souleymane Kelly NP Specialists: LINDY Montalvo @ [facility], [place] Preferred Pharmacy: [facility] Retail Insurance: [employer]. Pt states he has a CM through [employer], but he does not remember her name. Prescription Benefit: Yes Living Will/HPOA: Pt does not currently have LW/HCPOA and would like to speak to SW to complete, stating he most likely would have his sister, Kendra Ochoa, be his HPOA. He does not know her phone #, stating it is in his phone, which is in his room charging. UZMA BAKER offered to hand him his phone so the # can be retracted, but he states he does not wish to do that at this time, stating, I'll have to get back to you. RNSridevi, notified pt would like to compete AD and to inform SW, Carmel WORTHINGTONOK: Pt has several siblings, but states his sister, Kendra Ochoa, is who he stays in contact w/the most. Living Arrangements: Lives alone in ground-floor apt. Laundry in basement and states does okay w/the stairs. He states he is independent w/ADL's and IADL's. Transportation: Pt utilizes [id number], but states they often want a couple days notice. Pt may need to utilize [facility] Van transport @ d/c. DME: States has the following DME: functioning glucometer w/supplies and stats has all insulin needed at this time. He states he will contact LINDY Kelly when refills are needed. He also has medical alert button, BP machine, and pulse ox. Pt states no need for further DME at this time. HHC/SNF: No hx of either. Pt denies needs. Pt wishes to return home and states has no concerns with going home at time of discharge. CM to follow for any discharge planning/needs. Pt voices no further concerns/needs at this time. Advised pt to ask for CM if any further questions/concerns/needs arise. Voices understanding. PLAN: Home Humza SUN RN CM
[2022-02-28 13:50] VITALS: BP 149/83; PULSE 94; RESP 16; TEMP 36.7; O2SAT 96
[2022-02-28] MEDS: predniSONE 20 MG Tablet 40 MG PO (13:51)
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
--- NOTE | 2022-02-28 15:33 | CASEMGMT ---
Social Work Note SW in to speak with pt regarding Safety Plan. Pt completed Safety Plan. Pt states that a support person for him is his ex land lord Eunice Mai and provided phone number [phone]. Pt gave this worker permission to call Eunice to review safety plan. During completion of Safety Plan, pt states that he will take his Gabapentin sometimes more than Prescribed due to his feet, neck, back pain. Pt states that he is spiritual and he cannot harm himself or others because he will go to Hell. Pt states that he has knives in the home but he uses them for utilities only. Pt states he is not a violent person but states Rudyard likes to talk and gossip. Pt again denied any homicidal thoughts/plans/ideations. Safety plan completed and copy placed on pt's chart and original provided to pt. SW placed a call to Eunice Marthamar and reviewed Safety Plan. Eunice states if pt gets discharged in the next day or two she will be able to transport pt home after 5:30pm. FRANKIE updated pt of this. Carmel Trujillo SECURITY OPERATIONS CENTER OPERATOR, WEATHERIZATION AND HOUSING INSPECTOR
[2022-02-28 17:42] VITALS: BP 148/93; PULSE 97; RESP 20; TEMP 36.8; O2SAT 94
[2022-02-28 17:51] LABS: Bedside Glucose 146 mg/dL (74-106)
[2022-02-28] MEDS: Amitriptyline 25 MG Tablet PO (22:09)
[2022-02-28] MEDS: Pravastatin 20 MG Tablet 60 MG PO (22:10)
[2022-02-28] MEDS: Latanoprost 0.005% 1 Bottle 1 DRP EACH EYE (22:10)
[2022-02-28 22:30] VITALS: BP 143/86; PULSE 97; RESP 18; TEMP 36.9; O2SAT 96
[2022-02-28 22:30] LABS: Bedside Glucose 171 mg/dL (74-106)
[2022-02-28] MEDS: Insulin Lispro 100 UNIT/ML INSULN.PEN SC (22:31)
[2022-03-01] MEDS: Acetaminophen 325 MG Tablet 650 MG PO ×2 (02:24→21:27)
[2022-03-01 04:30] VITALS: BP 144/95; PULSE 87; RESP 16; TEMP 36.6; O2SAT 98
[2022-03-01 06:32] LABS: Absolute Lymphocyte Count 2.51 X10^3/uL (0.83-4.51); Absolute Neutrophil Count 10.1 X10^3/uL (2.0-7.7); Basophil# 0.04 X10^3/uL; Basophil% 0.3 % (0-1); Eosinophil# 0.07 X10^3/uL; Eosinophils% 0.5 % (0-5); Hematocrit 42.8 % (40-54); Hemoglobin 14.4 g/dL (13.0-16.5); Lymphocyte # 2.51 X10^3/ul (0.83-4.51); Lymphocyte % 18.5 % (19-41); Mean Corp Hgb Conc 33.6 g/dL (32-36); Mean Corpuscular Hgb 31.3 pg (27.0-32.0); Mean Platelet Vol. 8.9 fl (6.2-12.0); Monocyte# 0.83 X10^3/uL; Monocyte% 6.1 % (0-10); NRBC Flagged by Analyzer 0 % (0-5); Neutrophil # 10.07 X10^3/uL (2.7-7.7); Neutrophil % 74.3 % (47-70); Platelet Count 169 K/mm3 (150-450); RBC Distribution Width CV 13.2 % (11.6-14.6); RBC Distribution Width SD 44.7 fl (35.1-43.9); White Blood Count 13.6 K/mm3 (4.4-11.0)
[2022-03-01] MEDS: DiphenhydrAMINE 50 MG/ML Syringe 12.5 MG IV ×3 (06:44→19:27)
[2022-03-01] MEDS: 0.9% Saline Lock 10 ML Syringe IV ×6 (06:44→20:11)
[2022-03-01] MEDS: HYDROmorphone 1 MG/ML Syringe IV ×4 (06:44→20:10)
[2022-03-01 07:00] LABS: Bedside Glucose 137 mg/dL (74-106)
[2022-03-01 07:12] LABS: Anion Gap 9 (5-15); BUN 8 mg/dL (7-18); BUN/Creat Ratio 6.4 RATIO (10-20); Calcium,Total 8.7 mg/dL (8.5-10.1); Chloride 105 mmol/L (98-107); Creatinine, Serum 1.25 mg/dL (0.70-1.30); EST Glomerular Filtration Rate 63 mL/min (>60); Est Glom Filt Rate - Afr Amer 77 mL/min (>60); Estimated Creatinine Clearance 68.13 ml/min; Glucose 124 mg/dL (74-106); Sodium Level 136 mmol/L (136-145)
[2022-03-01 08:03] VITALS: BP 144/96; PULSE 88; RESP 18; TEMP 36.7; O2SAT 97
[2022-03-01] MEDS: Tamsulosin HCl 0.4 MG Capsule PO (08:09)
[2022-03-01] MEDS: Aspirin 81 MG TAB.CHEW PO (08:09)
[2022-03-01] MEDS: Potassium Chloride 10mEq/100mL 10 MEQ/100 ML IV.SOLN. 100 MEQ IV BOLUS ×4 (08:14→12:35)
[2022-03-01] MEDS: Lactulose 20 GM/30 ML UDC 10 GM PO (10:47)
[2022-03-01] MEDS: amLODIPine 10 MG Tablet PO (10:48)
[2022-03-01] MEDS: levETIRAcetam 500 MG Tablet PO ×2 (10:48→21:28)
[2022-03-01] MEDS: Enoxaparin 40 MG/0.4 ML Syringe SC (10:49)
[2022-03-01] MEDS: Loratadine 10 MG Tablet PO (10:49)
[2022-03-01] MEDS: Losartan Potassium 25 MG Tablet PO (10:49)
[2022-03-01] MEDS: Gabapentin 300 MG Capsule PO ×2 (10:54→21:27)
[2022-03-01] MEDS: Insulin Lispro 100 UNIT/ML INSULN.PEN SC (11:31)
[2022-03-01 12:31] LABS: Bedside Glucose 169 mg/dL (74-106)
--- NOTE | 2022-03-01 13:58 | PN.HOSP_ITS ---
Subjective Subjective Patient reports he is feeling better today. He would like to try some food today. I discussed with him that we did start clear liquids and see how he tolerates these and advance as tolerated however we did discuss its very important for him to let me know if he has worsening abdominal pain with any food. He states the Dilaudid with the Benadryl has helped him with regards to his itching. Objective Data Objective Data Vital Signs: Vital Signs Temp Pulse Resp BP Pulse Ox 98.1 F 88 18 144/96 H 97 03/01/22 08:03 03/01/22 08:03 03/01/22 08:03 03/01/22 08:03 03/01/22 08:03 Oxygen Delivery Method Room Air Weight: 89 kg Body Mass Index (BMI) 28.2 Intake & Output: Intake and Output for Last 24 Hours 02/27/22 02/28/22 03/01/22 23:59 23:59 23:59 Intake Total 2160 / 2160 3136.2533 / 3136.2533 1343.75 / 1343.75 Output Total 1050 / 1050 1700 / 2100 850 / 850 Balance 1110 / 1110 1436.2533 / 1036.2533 493.75 / 493.75 Lab / Micro Data Result Diagrams: 03/01/22 06:22 03/01/22 06:22 Labs: Laboratory Results - last 24 hr 02/28/22 17:40: POC Glucose 146 H 02/28/22 22:08: POC Glucose 171 H 03/01/22 06:22: WBC 13.6 H, RBC 4.60, Hgb 14.4, Hct 42.8, MCV 93.0, MCH 31.3, MCHC 33.6, RDW Std Deviation 44.7 H, RDW Coeff of Armin 13.2, Plt Count 169, MPV 8.9, Immature Gran % (Auto) 0.300, Neut % (Auto) 74.3 H, Lymph % (Auto) 18.5 L, Swisher % (Auto) 6.1, Eos % (Auto) 0.5, Baso % (Auto) 0.3, Absolute Neuts (auto) 10.1 H, Absolute Lymphs (auto) 2.51, Nucleated RBC % 0 03/01/22 06:22: Sodium 136, Potassium 3.0 L, Chloride 105, Carbon Dioxide 22.0, Anion Gap 9, BUN 8, Creatinine 1.25, Estim Creat Clear Calc 68.13, Est GFR (MDRD) Af Amer 77, Est GFR (MDRD) Non-Af 63, BUN/Creatinine Ratio 6.4 L, Glucose 124 H, Calcium 8.7, Phosphorus 3.0 03/01/22 06:26: POC Glucose 137 H 03/01/22 11:29: POC Glucose 169 H Physical Exam Const alert, oriented x3 and no apparent distress Constitutional Narrative: Overweight middle-aged -[place] male sitting up in bed, appears nontoxic, watching television Exam Limitations: no limitations Nutritional Appearance: overweight HEENT head/scalp atraumatic and moist oral mucous membranes HEENT Narrative: Mallampati 3, no thrush Head and Scalp: normocephalic Resp normal respiratory effort, no retractions, no use of accessory muscles and clear to auscultation bilaterally Auscultation: Negative for crackles, rales, rhonchi or wheezes Cardio regular rate, regular rhythm, S1 normal heart sound, S2 normal heart sound, no murmurs, no rub, no gallops, no clicks and no JVD GI normal to inspection, nondistended, normoactive bowel sounds, soft to palpation and non-distended GI Narrative: Bowel sounds are normal active Palpation: tender epigastric (Very minimal epigastric and left upper quadrant pain with deep palpation) Extremity no clubbing, cyanosis or edema Peripheral Pulses: Yes pulses 2+ throughout Neuro oriented x3, moves all extremities and no focal motor deficits Sensorium / Orientation: awake and alert Speech: speech normal Assessment & Plan Assessment/Plan (1) Acute pancreatitis: QUALIFIERS: Pancreatitis type: unspecified pancreatitis type Acute pancreatitis complication: unspecified Qualified Code(s): K85.90 - Acute pancreatitis without necrosis or infection, unspecified (2) Hypophosphatemia: (3) Leukocytosis: PLAN: Acute on chronic pancreatitis -Patient with extensive work-up approximately 1 year ago for this including abdominal ultrasound and MRCP -Ultrasound showed fatty liver and obscured pancreas -MRCP was reported out as normal after cholecystectomy -We will restart hydrochlorothiazide today to see if this plays any part in his pancreatitis -Most likely related to his alcohol consumption--> discussed extensively with patient and strongly recommended complete cessation -Discontinue IV fluids if patient does well with p.o. intake -As needed pain medication with addition of Benadryl for histamine release with narcotic use -Start clear liquid diet and advance as tolerated Leukocytosis -Very mild -Suspect reactive -Stable Hypophosphatemia -Resolved Hypokalemia -40 mill equivalent potassium bolus given -Recheck lab in a.m. Hypertension -We will retrial hydrochlorothiazide -Continue amlodipine/losartan -As needed hydralazine DM-2 -Sliding scale -Accu-Cheks every 6 -Hold home metformin -Restart home glargine as p.o. intake has resumed--> hold if patient n.p.o. Neuropathy -Continue gabapentin -Continue amitriptyline History of seizure disorder -Continue home Keppra History of hyperammonemia -Continue home lactulose GERD -Continue Protonix Hyperlipidemia -Continue pravastatin BPH -Continue Flomax DVT prophylaxis -Continue enoxaparin CODE STATUS -Full code Charges/Coding Visit Charges Inpatient E&M: 63505 Subs Hosp L2
[2022-03-01] MEDS: hydroCHLOROthiazide 25 MG Tablet PO (15:18)
[2022-03-01 15:25] VITALS: BP 146/95; PULSE 86; RESP 18; TEMP 36.6; O2SAT 94
--- NOTE | 2022-03-01 16:00 | CASEMGMT ---
Social Work Note SW in to speak with pt. SW provided pt with Substance Abuse and Mental Health Resources. Pt took resources. Carmel Trujillo [employer] CONTROL SPECIALIST, FIRMWARE DEVELOPER
[2022-03-01 16:41] LABS: Bedside Glucose 105 mg/dL (74-106)
[2022-03-01] MEDS: Pravastatin 20 MG Tablet 60 MG PO (21:28)
[2022-03-01] MEDS: Amitriptyline 25 MG Tablet PO (21:29)
[2022-03-01] MEDS: Latanoprost 0.005% 1 Bottle 1 DRP EACH EYE (21:29)
[2022-03-01 21:30] VITALS: BP 150/91; PULSE 76; RESP 16; TEMP 36.7; O2SAT 95
[2022-03-01] MEDS: Insulin Glargine-YFGN 100 UNIT/ML Pen 10 UNIT SC (21:51)
[2022-03-01] MEDS: MELATONIN 3 MG TABLET PO (21:51)
[2022-03-01 22:00] LABS: Bedside Glucose 140 mg/dL (74-106)
[2022-03-02] MEDS: DiphenhydrAMINE 50 MG/ML Syringe 12.5 MG IV ×3 (01:16→19:50)
[2022-03-02] MEDS: HYDROmorphone 1 MG/ML Syringe IV ×4 (01:17→19:52)
[2022-03-02] MEDS: 0.9% Saline Lock 10 ML Syringe IV ×4 (01:18→19:53)
[2022-03-02 03:30] VITALS: BP 140/89; PULSE 89; RESP 16; TEMP 36.6; O2SAT 94
[2022-03-02 06:40] LABS: Bedside Glucose 119 mg/dL (74-106)
[2022-03-02 06:45] LABS: Absolute Lymphocyte Count 2.83 X10^3/uL (0.83-4.51); Absolute Neutrophil Count 6.3 X10^3/uL (2.0-7.7); Basophil# 0.05 X10^3/uL; Basophil% 0.5 % (0-1); Eosinophil# 0.28 X10^3/uL; Eosinophils% 2.7 % (0-5); Hematocrit 43.6 % (40-54); Hemoglobin 14.5 g/dL (13.0-16.5); Lymphocyte # 2.83 X10^3/ul (0.83-4.51); Lymphocyte % 27.6 % (19-41); Mean Corp Hgb Conc 33.3 g/dL (32-36); Mean Corpuscular Hgb 31.5 pg (27.0-32.0); Mean Corpuscular Volume 94.6 fL (80-94); Monocyte# 0.76 X10^3/uL; Monocyte% 7.4 % (0-10); NRBC Flagged by Analyzer 0 % (0-5); Neutrophil # 6.29 X10^3/uL (2.7-7.7); Neutrophil % 61.4 % (47-70); Platelet Count 180 K/mm3 (150-450); RBC Distribution Width CV 13.2 % (11.6-14.6); RBC Distribution Width SD 45.9 fl (35.1-43.9); Red Blood Count 4.61 M/mm3 (4.6-6.2); White Blood Count 10.3 K/mm3 (4.4-11.0)
[2022-03-02 07:05] LABS: Anion Gap 9 (5-15); BUN 6 mg/dL (7-18); BUN/Creat Ratio 6.1 RATIO (10-20); Calcium,Total 9.4 mg/dL (8.5-10.1); Chloride 103 mmol/L (98-107); Creatinine, Serum 0.99 mg/dL (0.70-1.30); EST Glomerular Filtration Rate 83 mL/min (>60); Est Glom Filt Rate - Afr Amer 101 mL/min (>60); Estimated Creatinine Clearance 86.03 ml/min; Glucose 111 mg/dL (74-106); Sodium Level 138 mmol/L (136-145)
[2022-03-02 08:45] VITALS: BP 145/96; PULSE 78; RESP 18; TEMP 36.4; O2SAT 95
[2022-03-02] MEDS: Lactulose 20 GM/30 ML UDC 10 GM PO (09:01)
[2022-03-02] MEDS: Ensure Clear 120 ML Liquid PO ×4 (09:01→21:09)
[2022-03-02] MEDS: Enoxaparin 40 MG/0.4 ML Syringe SC (09:01)
[2022-03-02] MEDS: Gabapentin 300 MG Capsule PO ×2 (09:02→21:04)
[2022-03-02] MEDS: Pantoprazole Sodium 40 MG Tablet PO (09:05)
[2022-03-02] MEDS: Loratadine 10 MG Tablet PO (09:05)
[2022-03-02] MEDS: amLODIPine 10 MG Tablet PO (09:05)
[2022-03-02] MEDS: Losartan Potassium 25 MG Tablet PO (09:05)
[2022-03-02] MEDS: hydroCHLOROthiazide 25 MG Tablet PO (09:05)
[2022-03-02] MEDS: levETIRAcetam 500 MG Tablet PO ×2 (09:05→21:04)
[2022-03-02] MEDS: Tamsulosin HCl 0.4 MG Capsule PO (09:06)
[2022-03-02] MEDS: Potassium Chloride Oral Tablet 20 MEQ 60 MEQ PO (09:06)
[2022-03-02] MEDS: Aspirin 81 MG TAB.CHEW PO (09:06)
[2022-03-02 09:34] LABS: Lipase 900 U/L (73-393)
[2022-03-02] MEDS: Insulin Lispro 100 UNIT/ML INSULN.PEN SC (11:34)
[2022-03-02 11:35] LABS: Erythrocyte Sedimentation Rate 35 mm/hr (0-20)
[2022-03-02 11:45] LABS: Bedside Glucose 196 mg/dL (74-106)
--- NOTE | 2022-03-02 13:51 | PCM.PN.HOSP ---
Subjective Subjective Patient states he tried clear liquids however it seemed to aggravate his abdominal pain. His diet was not able to be advanced because of this. Repeat lipase this morning was performed and is trending down however still elevated. Objective Data Objective Data Vital Signs: Vital Signs Temp Pulse Resp BP Pulse Ox 97.5 F L 78 18 145/96 H 95 03/02/22 08:45 03/02/22 08:45 03/02/22 08:45 03/02/22 08:45 03/02/22 08:45 Oxygen Delivery Method Room Air Weight: 88.9 kg Body Mass Index (BMI) 28.2 Intake & Output: Intake and Output for Last 24 Hours 02/28/22 03/01/22 03/02/22 23:59 23:59 23:59 Intake Total 3136.2533 / 3136.2533 1903.75 / 1903.75 Output Total 1700 / 2100 1600 / 2860 3720 / 3720 Balance 1436.2533 / 1036.2533 303.75 / -956.25 -3720 / -3720 Lab / Micro Data Result Diagrams: 03/02/22 06:05 03/02/22 06:05 Labs: Laboratory Results - last 24 hr 03/01/22 16:31: POC Glucose 105 03/01/22 21:24: POC Glucose 140 H 03/02/22 06:05: WBC 10.3, RBC 4.61, Hgb 14.5, Hct 43.6, MCV 94.6 H, MCH 31.5, MCHC 33.3, RDW Std Deviation 45.9 H, RDW Coeff of Armin 13.2, Plt Count 180, MPV 10.0, Immature Gran % (Auto) 0.400, Neut % (Auto) 61.4, Lymph % (Auto) 27.6, [place]ble % (Auto) 7.4, Eos % (Auto) 2.7, Baso % (Auto) 0.5, Absolute Neuts (auto) 6.3, Absolute Lymphs (auto) 2.83, Nucleated RBC % 0 03/02/22 06:05: Sodium 138, Potassium 3.0 L, Chloride 103, Carbon Dioxide 26.0, Anion Gap 9, BUN 6 L, Creatinine 0.99, Estim Creat Clear Calc 86.03, Est GFR (MDRD) Af Amer 101, Est GFR (MDRD) Non-Af 83, BUN/Creatinine Ratio 6.1 L, Glucose 111 H, Calcium 9.4 03/02/22 06:05: Lipase 900 H 03/02/22 06:05: ESR 35 H 03/02/22 06:05: C-React Prot High Sens 54.20 H 03/02/22 06:30: POC Glucose 119 H 03/02/22 11:31: POC Glucose 196 H Physical Exam Const alert, oriented x3 and no apparent distress Constitutional Narrative: Overweight middle-aged -[place] male sitting up in bed, appears nontoxic, watching television, nursing is at the bedside Exam Limitations: no limitations Nutritional Appearance: overweight HEENT head/scalp atraumatic and moist oral mucous membranes Head and Scalp: normocephalic Resp normal respiratory effort, no retractions, no use of accessory muscles and clear to auscultation bilaterally Auscultation: Negative for crackles, rales, rhonchi or wheezes Cardio regular rate, regular rhythm, S1 normal heart sound, S2 normal heart sound, no murmurs, no rub, no gallops, no clicks and no JVD GI normal to inspection, nondistended, normoactive bowel sounds, soft to palpation and non-distended GI Narrative: Bowel sounds are normal active Palpation: tender epigastric (Very minimal epigastric and left upper quadrant pain with deep palpation) Extremity no clubbing, cyanosis or edema Peripheral Pulses: Yes pulses 2+ throughout Neuro oriented x3, moves all extremities and no focal motor deficits Sensorium / Orientation: awake and alert Speech: speech normal Assessment & Plan Assessment/Plan (1) Acute pancreatitis: QUALIFIERS: Pancreatitis type: unspecified pancreatitis type Acute pancreatitis complication: unspecified Qualified Code(s): K85.90 - Acute pancreatitis without necrosis or infection, unspecified (2) Hypophosphatemia: (3) Leukocytosis: PLAN: Acute on chronic pancreatitis -Patient with extensive work-up approximately 1 year ago for this including abdominal ultrasound and MRCP -Ultrasound showed fatty liver and obscured pancreas -MRCP was reported out as normal after cholecystectomy -I did review the case with gastroenterology and he reviewed the imaging and does not feel that the pancreatic head appears to be normal -Continue HCTZ at this time as I do not feel that this is the inciting etiology for his pancreatitis -ESR and CRP obtained after discussion with gastroenterology and both are elevated however CRP is markedly elevated -Most likely related to his alcohol consumption--> discussed extensively with patient and strongly recommended complete cessation -We will make him n.p.o. and restart IV fluids -As needed pain medication with addition of Benadryl for histamine release with narcotic use -GI is consulted--> question need for repeat MRCP versus ERCP Leukocytosis -Resolved Hypophosphatemia -Resolved Hypokalemia - repeat potassium supplementation -Check a.m. magnesium level with no improvement in potassium level -Repeat BMP in a.m. Hypertension -Continue HCTZ -Continue amlodipine/losartan -As needed hydralazine DM-2 -Sliding scale -Accu-Cheks every 6 -Hold home metformin -We will continue home glargine as blood sugars are elevated Neuropathy -Continue gabapentin -Continue amitriptyline History of seizure disorder -Continue home Keppra History of hyperammonemia -Continue home lactulose GERD -Continue Protonix Hyperlipidemia -Continue pravastatin BPH -Continue Flomax DVT prophylaxis -Continue enoxaparin CODE STATUS -Full code Charges/Coding Visit Charges Inpatient E&M: 05134 Subs Hosp L2
[2022-03-02 14:21] VITALS: BP 126/96; PULSE 87; RESP 18; TEMP 36.2; O2SAT 95
[2022-03-02] MEDS: Lactated Ringers 1,000 ML 150 ML IV ×2 (14:27→20:59)
--- NOTE | 2022-03-02 15:36 | CASEMGMT ---
Patient is interested in completing a Healthcare Power of Ship Scraper. SW met with patient. Introduced self and role at [facility] [place]. Patient confirmed he wanted to complete the document. SW started the document with patient, but he did not have phone numbers for those he wanted to list. Patient also wanted to name his ex-landlord, but he has not talked with her about yet. SW told patient he should talk with his ex-landlord first. FRANKIE wrote down the phone number for patient to call to schedule an appt with [facility] [place] FRANKIE to complete document. Doris MONTIEL
[2022-03-02 17:26] LABS: Bedside Glucose 119 mg/dL (74-106)
--- NOTE | 2022-03-02 17:26 | CON.PCM_ITS ---
Assessment & Plan Assessment/Plan (1) Acute pancreatitis: QUALIFIERS: Pancreatitis type: unspecified pancreatitis type Acute pancreatitis complication: unspecified Qualified Code(s): K85.90 - Acute pancreatitis without necrosis or infection, unspecified PLAN: Acute pancreatitis possibly secondary to alcoholic pancreatitis. His last MRI that he had did not show any signs of pancreatic divisum. It was not a good study secondary to mild ascites but there was no signs of pancreatic masses or obstructive physiology. At this time he has a low Samson score by his initial CT scan. His pancreatitis was at the head in genu of the pancreas. His hematocrit has been decreasing very well with IV fluids. He still having some abdominal pain. I suspect that it is from mild paralytic ileus associated with acute pancreatitis in the setting of diabetes mellitus and some possible mechanical gastroparesis. Recommend azithromycin 500 mg IV once a day to increase motility of the small bowel. I would also give him Reglan 5 mg every 6 hours [id number]. He has not had a bowel movement since Monday morning. I would give him Colace 100mg p.o. twice daily and I would repeat his CT scan of the abdomen pelvis tomorrow to make sure he has no signs of gastric outlet obstruction, worsening ileus and less likely necrosis. Depending on what the CT scan abdomen pelvis shows he may need a procedure for therapeutic purposes. HPI Consult Data Date of Consult: 03/02/22 HPI Narrative HPI Narrative: BRANDON WELLER, is a 56 M who presents with epigastric pain. He states it started today. Patient notes that he did not drink yesterday but the day before had beer and champagne. He had no problems until today. Patient expressed he has 2 episodes of nausea and vomiting. No constipation or diarrhea. No urinary symptoms. No fevers. Patient has history of chronic pancreatitis vs acute recurrent pancreatitis with previous history of alcohol dependence who had remained sober for couple of months. Had some alcoholic beverages a day prior to coming in. Per patient he drank beer and champagne. Woke up on the morning of his admission with abdomin al pain. Pain was located in the mid abdomen radiating to the back. In view of the persistent nature of his symptoms presented to the emergency department. His assessment was consistent with acute pancreatitis did receive pain meds in the ED and admitted to regular nursing floor for further management. Ct scan of the abdomen/Pelvis- Inflammatory stranding surrounding the pancreatic head and body consistent with acute pancreatitis, clinically correlate with underlying laboratory values. No evidence of focal fluid collection or abscess. Otherwise no additional acute intra-abdominal process. He had an MRCP that did not show any signs of Chronic pancreatitis, but it did display acute pancreatitis. [facility] Medical History (Updated 02/28/22 @ 12:[address] Ana Yuan, DO) Acute pancreatitis Alcohol abuse Anxiety and depression Cancer Cerebrovascular disease Chronic hip pain Chronic pain Constipation Diabetes Diabetes mellitus type 2 in nonobese Essential (primary) hypertension Family history of cerebral aneurysm Former tobacco use Gastric ulcer GERD (gastroesophageal reflux disease) GERD (gastroesophageal reflux disease) GI bleed Glaucoma Hyperlipidemia Neck pain Other generalized epilepsy and epileptic syndromes, not intractable, without status epilepticus Pancreatitis Polyneuropathy PSA elevation PTSD (post-traumatic stress disorder) Seizure disorder TIA (transient ischemic attack) Type 2 diabetes mellitus Vision loss of left eye Vision loss of right eye Home Medications nitroglycerin 0.4 mg SUBLINGUAL Q5M PRN 07/15/13 [History Last Taken 08/22/15] metformin 500 mg PO BID 11/28/13 [History Last Taken 02/26/22] loratadine 10 mg PO DAILY 06/01/17 [History Last Taken 02/26/22] amitriptyline 25 mg tablet 25 mg PO QHS 07/03/18 [History Last Taken 02/26/22] cholecalciferol (vitamin D3) 1 cap PO DAILY 11/09/18 [History Last Taken 02/26/22] aspirin 81 mg chewable tablet 81 mg PO DAILY@0800 #30 tab 04/09/20 [Rx Last Taken 02/26/22] hydrochlorothiazide 25 mg tablet 25 mg PO DAILY #30 tab 06/05/20 [Rx Last Taken 02/26/22] gabapentin 300 mg capsule 300 mg PO BID cap 10/06/20 [History Last Taken 02/26/22] insulin glargine 10 unit SQ QHS 12/30/20 [History Last Taken 02/26/22] acetaminophen 650 mg PO Q6H PRN PRN #30 tablet 01/01/21 [Rx Last Taken Unknown] levetiracetam 500 mg tablet 500 mg PO BID #60 tab 09/02/21 [Rx Last Taken 02/26/22] amlodipine 10 mg tablet 10 mg PO DAILY #30 tab 12/17/21 [Rx Last Taken 02/26/22] latanoprost 1 drp EACH EYE QHS 12/07/21 [History Last Taken Unknown] lactulose 10 g PO DAILY 02/27/22 [History Last Taken Unknown] losartan 25 mg PO DAILY 02/27/22 [History Last Taken 02/26/22] magnesium oxide 400 mg PO BID 02/27/22 [History Last Taken Unknown] pantoprazole 40 mg PO DAILY 02/27/22 [History Last Taken 02/26/22] pravastatin 60 mg PO QHS 02/27/22 [History Last Taken Unknown] tamsulosin 0.4 mg PO DAILY 02/27/22 [History Last Taken 02/26/22] Allergy/AdvReac Type Severity Reaction Status Date / Time lisinopril Allergy Angioedema Verified 02/27/22 12:22 cyclobenzaprine AdvReac Severe Skin Verified 02/27/22 12:22 crawling hydrocodone bitartrate AdvReac Itching Verified 02/27/22 12:22 [From Vicodin] morphine AdvReac Itching Verified 02/27/22 12:22 tramadol AdvReac Itching Verified 02/27/22 12:22 Family History Mother Heart disease Sister Cerebral aneurysm Surgical History History of cholecystectomy (12/2013) History of left heart catheterization (10/31/11) Social History Smoking Status: Former smoker Tobacco: How many years used: 7 Electronic Cigarette Use: not used alcohol intake: current alcohol intake frequency: holidays/special occasions only Alcohol type: beer details: states a couple beers every now on then, does not have daily substance use type: does not use ROS Review of Systems ROS Unobtainable: other Constitutional Constitutional: Denies fatigue, fever(s), poor appetite, weight gain or weight loss ENT HEENT: Denies mouth lesions Cardiovascular Cardiovascular: Denies abdominal bloating, abdominal edema or abdominal pain Respiratory/Chest Respiratory/Chest: Denies change in mental status, change in phlegm color, chest congestion or chest tightness Gastrointestinal Gastrointestinal: Reports abdominal pain, bloating, change in bowel habits and dyspepsia; Denies change in stool character, chewing difficulty, coffee ground emesis, constipation, cramping, diarrhea, dysphagia, early satiety, excessive flatus, fecal incontinence, heartburn, hematemesis, hematochezia, hemorrhoids, loose stools, melena, nausea, odynophagia, rectal bleeding, tenesmus, vomiting or weight changes Genitourinary Genitourinary: Denies abdominal discomfort, burning urination or itching Musculoskeletal Musculoskeletal: Reports as per HPI; Denies muscle weakness or myalgias Integumentary Integumentary: Denies jaundice Neurologic Neurologic: Denies lack of coordination or weakness Psychiatric Psychiatric: Denies confusion, depression, memory loss, mood swings, paranoia or suicidal ideation Endocrine Endocrinology: Denies systems reviewed and no addt'l complaints, except as documented Hematologic/Lymphatic Hematologic/Lymphatic: Denies anemia, easy bleeding, easy bruising or lymphadenopathy Allergic/Immunologic Allergic/Immunologic: Denies systems reviewed and no addt'l complaints, except as documented Physical Exam Const alert General Appearance: cooperative Orientation / Consciousness: oriented to person HEENT hearing grossly normal bilaterally Head and Scalp: normal to inspection Face and Sinus: face symmetric Nose: external nose normal Mouth: oral and palatal mucosa normal Eyes conjunctivae normal General Eye: normal appearance of both eyes Neck full ROM General: normal visual inspection Lymph Lymphatic: no lymphadenopathy noted Chest inspection of chest normal and palpation of chest normal Chest: symmetrical chest wall rise Resp normal respiratory effort Effort and Inspection: able to speak in complete sentences Cardio regular rate GI non-distended Percussion: normal to percussion Rectal Exam: deferred Neuro Speech: speech normal Gait (Neuro): normal gait Lab / Micro Data Result Diagrams: 03/02/22 06:05 03/02/22 06:05 Labs: Laboratory Results - last 24 hr 03/01/22 21:24: POC Glucose 140 H 03/02/22 06:05: WBC 10.3, RBC 4.61, Hgb 14.5, Hct 43.6, MCV 94.6 H, MCH 31.5, MCHC 33.3, RDW Std Deviation 45.9 H, RDW Coeff of Armin 13.2, Plt Count 180, MPV 10.0, Immature Gran % (Auto) 0.400, Neut % (Auto) 61.4, Lymph % (Auto) 27.6, Karnes % (Auto) 7.4, Eos % (Auto) 2.7, Baso % (Auto) 0.5, Absolute Neuts (auto) 6.3, Absolute Lymphs (auto) 2.83, Nucleated RBC % 0 03/02/22 06:05: Sodium 138, Potassium 3.0 L, Chloride 103, Carbon Dioxide 26.0, Anion Gap 9, BUN 6 L, Creatinine 0.99, Estim Creat Clear Calc 86.03, Est GFR (MDRD) Af Amer 101, Est GFR (MDRD) Non-Af 83, BUN/Creatinine Ratio 6.1 L, Glucose 111 H, Calcium 9.4 03/02/22 06:05: Lipase 900 H 03/02/22 06:05: ESR 35 H 03/02/22 06:05: C-React Prot High Sens 54.20 H 03/02/22 06:30: POC Glucose 119 H 03/02/22 11:31: POC Glucose 196 H 03/02/22 17:06: POC Glucose 119 H Charges/Coding Visit Charges Inpatient E&M: 90991 Init Hosp L2
--- NOTE | 2022-03-02 17:26 | PN_ITS ---
Subjective Subjective 56-year-old male with history of pancreatitis presenting with epigastric pain. He states it started today. Patient notes that he did not drink yesterday but the day before had beer and champagne. He had no problems until today. Patient expressed he has 2 episodes of nausea and vomiting. No constipation or gisella rrhea. No urinary symptoms. No fevers. Objective Data Objective Data Vital Signs: Vital Signs Temp Pulse Resp BP Pulse Ox 97.1 F L 87 18 126/96 H 95 03/02/22 14:21 03/02/22 14:21 03/02/22 14:21 03/02/22 14:21 03/02/22 14:21 Oxygen Delivery Method Room Air Weight: 195 lb 15.855 oz Body Mass Index (BMI) 28.2 Intake & Output: Intake and Output for Last 24 Hours 02/28/22 03/01/22 03/02/22 23:59 23:59 23:59 Intake Total 3136.2533 / 3136.2533 1903.75 / 1903.75 Output Total 1700 / 2100 1600 / 2860 4320 / 4320 Balance 1436.2533 / 1036.2533 303.75 / -956.25 -4320 / -4320 Lab / Micro Data Result Diagrams: 03/02/22 06:05 03/02/22 06:05 Labs: Laboratory Results - last 24 hr 03/01/22 21:24: POC Glucose 140 H 03/02/22 06:05: WBC 10.3, RBC 4.61, Hgb 14.5, Hct 43.6, MCV 94.6 H, MCH 31.5, MCHC 33.3, RDW Std Deviation 45.9 H, RDW Coeff of Armin 13.2, Plt Count 180, MPV 10.0, Immature Gran % (Auto) 0.400, Neut % (Auto) 61.4, Lymph % (Auto) 27.6, Chaves % (Auto) 7.4, Eos % (Auto) 2.7, Baso % (Auto) 0.5, Absolute Neuts (auto) 6.3, Absolute Lymphs (auto) 2.83, Nucleated RBC % 0 03/02/22 06:05: Sodium 138, Potassium 3.0 L, Chloride 103, Carbon Dioxide 26.0, Anion Gap 9, BUN 6 L, Creatinine 0.99, Estim Creat Clear Calc 86.03, Est GFR (MDRD) Af Amer 101, Est GFR (MDRD) Non-Af 83, BUN/Creatinine Ratio 6.1 L, Glucose 111 H, Calcium 9.4 03/02/22 06:05: Lipase 900 H 03/02/22 06:05: ESR 35 H 03/02/22 06:05: C-React Prot High Sens 54.20 H 03/02/22 06:30: POC Glucose 119 H 03/02/22 11:31: POC Glucose 196 H
[2022-03-02 19:47] VITALS: BP 146/96; PULSE 92; RESP 16; TEMP 36.7; O2SAT 99
[2022-03-02] MEDS: Ondansetron 4 MG/2 ML Vial IV (19:51)
[2022-03-02] MEDS: Amitriptyline 25 MG Tablet PO (21:04)
[2022-03-02] MEDS: Pravastatin 20 MG Tablet 60 MG PO (21:04)
[2022-03-02] MEDS: Insulin Glargine-YFGN 100 UNIT/ML Pen 10 UNIT SC (21:04)
[2022-03-02] MEDS: Latanoprost 0.005% 1 Bottle 1 DRP EACH EYE (21:04)
[2022-03-02 21:35] LABS: Bedside Glucose 145 mg/dL (74-106)
[2022-03-03 00:30] VITALS: BP 147/96; PULSE 91; RESP 16; TEMP 36.8; O2SAT 95
[2022-03-03] MEDS: HYDROmorphone 1 MG/ML Syringe IV ×5 (00:35→20:07)
[2022-03-03] MEDS: Metoclopramide 10 MG/2 ML Vial IV ×4 (00:35→16:57)
[2022-03-03] MEDS: 0.9% Saline Lock 10 ML Syringe IV ×4 (00:35→10:26)
[2022-03-03] MEDS: DiphenhydrAMINE 50 MG/ML Syringe 25 MG IV ×2 (00:36→21:02)
[2022-03-03 00:51] LABS: Bedside Glucose 153 mg/dL (74-106)
[2022-03-03] MEDS: Lactated Ringers 1,000 ML 150 ML IV ×3 (03:00→21:08)
[2022-03-03 05:42] LABS: Absolute Lymphocyte Count 2.96 X10^3/uL (0.83-4.51); Absolute Neutrophil Count 5.5 X10^3/uL (2.0-7.7); Basophil# 0.06 X10^3/uL; Basophil% 0.6 % (0-1); Eosinophil# 0.21 X10^3/uL; Eosinophils% 2.2 % (0-5); Hematocrit 42.6 % (40-54); Hemoglobin 14.4 g/dL (13.0-16.5); Lymphocyte # 2.96 X10^3/ul (0.83-4.51); Lymphocyte % 31.1 % (19-41); Mean Corp Hgb Conc 33.8 g/dL (32-36); Mean Corpuscular Hgb 31.4 pg (27.0-32.0); Mean Corpuscular Volume 92.8 fL (80-94); Mean Platelet Vol. 9.8 fl (6.2-12.0); Monocyte# 0.76 X10^3/uL; NRBC Flagged by Analyzer 0 % (0-5); Neutrophil # 5.48 X10^3/uL (2.7-7.7); Neutrophil % 57.7 % (47-70); Platelet Count 183 K/mm3 (150-450); RBC Distribution Width CV 12.9 % (11.6-14.6); RBC Distribution Width SD 43.8 fl (35.1-43.9); Red Blood Count 4.59 M/mm3 (4.6-6.2); White Blood Count 9.5 K/mm3 (4.4-11.0)
[2022-03-03 05:45] VITALS: BP 136/98; PULSE 75; RESP 16; TEMP 36.7; O2SAT 96
[2022-03-03 06:05] LABS: Bedside Glucose 148 mg/dL (74-106)
[2022-03-03 06:25] LABS: Anion Gap 7 (5-15); BUN 7 mg/dL (7-18); BUN/Creat Ratio 7.4 RATIO (10-20); Calcium,Total 9.5 mg/dL (8.5-10.1); Chloride 105 mmol/L (98-107); Creatinine, Serum 0.94 mg/dL (0.70-1.30); EST Glomerular Filtration Rate 88 mL/min (>60); Est Glom Filt Rate - Afr Amer 106 mL/min (>60); Glucose 153 mg/dL (74-106); Magnesium 1.8 mg/dL (1.6-2.6); Potassium 3.5 mmol/L (3.5-5.1); Sodium Level 136 mmol/L (136-145)
--- NOTE | 2022-03-03 07:19 | CT_ITS ---
STUDY: CT ABDOMEN AND PELVIS WITH CONTRAST REASON FOR EXAM: Male, 56 years old. Ethanol abuse. Pancreatitis. RADIATION DOSAGE (If Supplied By Facility): CTDIvol = ( 11.21 ) mGy, DLP = ( 823.35 ) mGycm TECHNIQUE: Transaxial images were obtained from the dome of the diaphragm to the symphysis pubis with oral contrast. Oral and amp;amp; IV Gastrografin and amp;amp; 100mL Isovue-300 was administered. Sagittal and coronal images were reconstructed. Individualized dose optimization techniques were used for this CT. COMPARISON: Comparison is made with prior study dated 02/27/2022. FINDINGS: Mild degree of increased markings at the lung bases slightly more prominent on the left lung base suggestive of linear atelectasis and/or scarring. The visualized portions of the heart are within normal limits. There is decreased attenuation of the liver consistent with steatosis. Stable 1 cm hypodensity in the peripheral anterior aspect of the left lobe of liver suggestive of a small cyst. Hepatomegaly. The patient is status post cholecystectomy. Normal spleen. Minimal residual peripancreatic stranding is seen although there has been improvement as compared with prior study. Normal bilateral adrenal glands. Normal right kidney. There is a 1.6 cm cyst in the anterior lateral aspect of the upper pole of the left kidney. Normal visualized stomach. Normal small intestine. Normal colon. The appendix is visualized and appears normal. There is scattered atherosclerotic calcification of the abdominal aorta, without a demonstrated aneurysm. Normal inferior vena cava. Normal retroperitoneum. Normal urinary bladder. Normal abdominal wall. Normal osseous structures. CT/Abdomen/Pelvis WITH Contrast IMPRESSION: Diffuse fatty infiltration of the liver. Hepatomegaly. Stable cyst in the anterior aspect of the left lobe of liver. Minimal residual stranding in the peripancreatic region although this has improved as compared to prior study. Electronically Signed: Brendan Ty MD at 10:09 EDT ,
[2022-03-03 08:49] VITALS: BP 158/98; PULSE 86; RESP 18; TEMP 36.6; O2SAT 98
[2022-03-03] MEDS: Gabapentin 300 MG Capsule PO ×2 (10:26→21:00)
[2022-03-03] MEDS: Lactulose 20 GM/30 ML UDC 10 GM PO (10:27)
[2022-03-03] MEDS: Enoxaparin 40 MG/0.4 ML Syringe SC (10:27)
[2022-03-03] MEDS: hydroCHLOROthiazide 25 MG Tablet PO (10:28)
[2022-03-03] MEDS: levETIRAcetam 500 MG Tablet PO ×2 (10:28→21:01)
[2022-03-03] MEDS: Loratadine 10 MG Tablet PO (10:28)
[2022-03-03] MEDS: Aspirin 81 MG TAB.CHEW PO (10:28)
[2022-03-03] MEDS: Tamsulosin HCl 0.4 MG Capsule PO (10:28)
[2022-03-03] MEDS: amLODIPine 10 MG Tablet PO (10:28)
[2022-03-03] MEDS: Losartan Potassium 25 MG Tablet PO (10:28)
[2022-03-03] MEDS: Pantoprazole Sodium 40 MG Tablet PO (10:28)
[2022-03-03 12:01] LABS: Bedside Glucose 232 mg/dL (74-106)
--- NOTE | 2022-03-03 13:52 | PCM.PN.HOSP ---
Subjective Subjective Patient states he still is having some abdominal pain however he does not point to the epigastrium is much as he does to his lower/mid abdomen. No issues overnight. Objective Data Objective Data Vital Signs: Vital Signs Temp Pulse Resp BP Pulse Ox 97.9 F 86 18 158/98 H 98 03/03/22 08:49 03/03/22 08:49 03/03/22 08:49 03/03/22 08:49 03/03/22 08:49 Oxygen Delivery Method Room Air Weight: 88.5 kg Body Mass Index (BMI) 28.2 Intake & Output: Intake and Output for Last 24 Hours 03/01/22 03/02/22 03/03/22 23:59 23:59 23:59 Intake Total 1903.75 / 1903.75 1235 / 1235 1157.5 / 1157.5 Output Total 1600 / 2860 4320 / 5470 2650 / 2650 Balance 303.75 / -956.25 -3085 / -4235 -1492.5 / -1492.5 Lab / Micro Data Result Diagrams: 03/03/22 05:03 03/03/22 05:03 Labs: Laboratory Results - last 24 hr 03/02/22 17:06: POC Glucose 119 H 03/02/22 20:58: POC Glucose 145 H 03/03/22 00:34: POC Glucose 153 H 03/03/22 05:03: WBC 9.5, RBC 4.59 L, Hgb 14.4, Hct 42.6, MCV 92.8, MCH 31.4, MCHC 33.8, RDW Std Deviation 43.8, RDW Coeff of Armin 12.9, Plt Count 183, MPV 9.8, Immature Gran % (Auto) 0.400, Neut % (Auto) 57.7, Lymph % (Auto) 31.1, Edmunds % (Auto) 8.0, Eos % (Auto) 2.2, Baso % (Auto) 0.6, Absolute Neuts (auto) 5.5, Absolute Lymphs (auto) 2.96, Nucleated RBC % 0 03/03/22 05:03: Sodium 136, Potassium 3.5, Chloride 105, Carbon Dioxide 24.0, Anion Gap 7, BUN 7, Creatinine 0.94, Estim Creat Clear Calc 90.60, Est GFR (MDRD) Af Amer 106, Est GFR (MDRD) Non-Af 88, BUN/Creatinine Ratio 7.4 L, Glucose 153 H, Calcium 9.5, Magnesium 1.8 03/03/22 05:51: POC Glucose 148 H 03/03/22 11:42: POC Glucose 232 H Radiography Diagnostic Testing: Radiology Impression Abdomen/Pelvis CT 03/03/22 07:19 IMPRESSION: Diffuse fatty infiltration of the liver. Hepatomegaly. Stable cyst in the anterior aspect of the left lobe of liver. Minimal residual stranding in the peripancreatic region although this has improved as compared to prior study. Electronically Signed: Brendan Ty MD at 10:09 EDT , Physical Exam Const alert, oriented x3 and no apparent distress Constitutional Narrative: Overweight middle-aged -[place]amese male sitting up in bed, appears nontoxic, watching television, nursing is at the bedside Exam Limitations: no limitations Nutritional Appearance: overweight HEENT head/scalp atraumatic and moist oral mucous membranes Head and Scalp: normocephalic Resp normal respiratory effort, no retractions, no use of accessory muscles and clear to auscultation bilaterally Auscultation: Negative for crackles, rales, rhonchi or wheezes Cardio regular rate, regular rhythm, S1 normal heart sound, S2 normal heart sound, no murmurs, no rub, no gallops, no clicks and no JVD GI normal to inspection, nondistended, normoactive bowel sounds, soft to palpation and non-distended GI Narrative: Bowel sounds are normal active, slight tenderness with palpation to the mid to lower abdomen but no tenderness in the epigastrium or left upper quadrant Palpation: tender Extremity no clubbing, cyanosis or edema Peripheral Pulses: Yes pulses 2+ throughout Neuro oriented x3, moves all extremities and no focal motor deficits Sensorium / Orientation: awake and alert Speech: speech normal Assessment & Plan Assessment/Plan (1) Acute pancreatitis: QUALIFIERS: Pancreatitis type: unspecified pancreatitis type Acute pancreatitis complication: unspecified Qualified Code(s): K85.90 - Acute pancreatitis without necrosis or infection, unspecified (2) Leukocytosis: PLAN: Acute on chronic pancreatitis -Patient with extensive work-up approximately 1 year ago for this including abdominal ultrasound and MRCP -Ultrasound showed fatty liver and obscured pancreas -MRCP was reported out as normal after cholecystectomy -I did review the case with gastroenterology and he reviewed the imaging and does not feel that the pancreatic head appears to be normal -Continue HCTZ at this time as I do not feel that this is the inciting etiology for his pancreatitis -ESR and CRP obtained after discussion with gastroenterology and both are elevated however CRP is markedly elevated -Most likely related to his alcohol consumption--> discussed extensively with patient and strongly recommended complete cessation -CT of the abdomen and pelvis performed this morning at the recommendation of GI -This showed diffuse fatty infiltration of the liver, hepatomegaly, stable cyst in the anterior aspect of the left lobe of the liver, and minimal residual stranding in the peripancreatic region that has improved since previous study -Okay to start diet per discussion with GI after review of CT scan -Reglan per GI to stimulate bowels -Continue as needed pain medication with addition of Benadryl for histamine release with narcotic use -GI is following-appreciate input -Hopeful for discharge in the next 24 hours Hypokalemia -Resolved Hypertension -Continue HCTZ -Continue amlodipine/losartan -Patient remained hypertensive and therefore her losartan dose was increased to 50 mg to start on 03/04/2022 -As needed hydralazine DM-2 -Sliding scale -And hemoglobin A1c -Accu-Cheks every 6 -Hold home metformin -Fasting blood sugar was 153 this morning -We will continue home glargine as blood sugars are elevated Neuropathy -Continue gabapentin -Continue amitriptyline History of seizure disorder -Continue home Keppra History of hyperammonemia -Continue home lactulose GERD -Continue Protonix Hyperlipidemia -Continue pravastatin BPH -Continue Flomax DVT prophylaxis -Continue enoxaparin CODE STATUS -Full code Charges/Coding Visit Charges Inpatient E&M: 16264 Subs Hosp L2
[2022-03-03 14:37] VITALS: BP 149/99; PULSE 87; RESP 18; TEMP 36.6; O2SAT 94
[2022-03-03] MEDS: Insulin Lispro 100 UNIT/ML INSULN.PEN SC (16:55)
[2022-03-03 17:05] LABS: Bedside Glucose 207 mg/dL (74-106)
[2022-03-03 20:09] VITALS: BP 165/89; PULSE 94; RESP 18; TEMP 36.8; O2SAT 96
[2022-03-03 20:56] VITALS: BP 149/97
[2022-03-03] MEDS: Latanoprost 0.005% 1 Bottle 1 DRP EACH EYE (20:56)
[2022-03-03] MEDS: Pravastatin 20 MG Tablet 60 MG PO (21:00)
[2022-03-03] MEDS: Amitriptyline 25 MG Tablet PO (21:01)
[2022-03-03] MEDS: Insulin Glargine-YFGN 100 UNIT/ML Pen 10 UNIT SC (21:03)
[2022-03-03 21:11] LABS: Bedside Glucose 171 mg/dL (74-106)
[2022-03-04] MEDS: HYDROmorphone 1 MG/ML Syringe IV ×3 (00:14→11:28)
[2022-03-04] MEDS: Metoclopramide 10 MG/2 ML Vial IV ×3 (00:32→11:28)
[2022-03-04 00:40] LABS: Bedside Glucose 145 mg/dL (74-106)
[2022-03-04] MEDS: Lactated Ringers 1,000 ML 150 ML IV ×2 (02:56→09:29)
[2022-03-04 03:10] VITALS: BP 145/93; PULSE 100; RESP 18; TEMP 36.7; O2SAT 93
[2022-03-04 06:15] LABS: AST(SGOT) 19 U/L (15-37); Alanine Aminotransfer ALT/SGPT 28 U/L (16-61); Albumin, Serum 3.6 g/dL (3.2-5.0); Alkaline Phosphatase 50 U/L (45-117); Anion Gap 5 (5-15); BUN 9 mg/dL (7-18); BUN/Creat Ratio 9.4 RATIO (10-20); Calcium,Total 9.3 mg/dL (8.5-10.1); Chloride 106 mmol/L (98-107); Creatinine, Serum 0.96 mg/dL (0.70-1.30); EST Glomerular Filtration Rate 86 mL/min (>60); Est Glom Filt Rate - Afr Amer 105 mL/min (>60); Estimated Creatinine Clearance 88.72 ml/min; Globulin 3.6 g/dL (2.2-4.2); Glucose 137 mg/dL (74-106); Potassium 3.6 mmol/L (3.5-5.1); Protein, Total 7.2 g/dL (6.4-8.2); Sodium Level 139 mmol/L (136-145)
[2022-03-04] MEDS: DiphenhydrAMINE 50 MG/ML Syringe 25 MG IV ×2 (06:34→13:02)
[2022-03-04] MEDS: Insulin Lispro 100 UNIT/ML INSULN.PEN SC ×2 (06:37→11:28)
--- NOTE | 2022-03-04 08:24 | PCM.DC ---
Discharge Instructions Diet Discharge Diet: Light diet - advance as tolerated and [place] diet ( Soft extra food, avoid oily, fried and fatty food.) Activity Discharge Activity: Return to Normal Activity and May Not Drive Weight Bearing Status: Weight bearing as tolerated Dressing / Incision Call your doctor if you observe: Fever of 101 or Higher, Coldness, Increased Pain, Numbness or Tingling, Change in Color, Inability to urinate, Inability to have a bowel movement, Shortness of breath, Dizziness, Fainting spells, Swelling in the ankles, Chest pain, Prolonged hiccupping, Increased palpitations (irregular heartbeat), Calf discomfort and Uncontrolled pain Follow Up Care Test Results: Test results from this visit will be discussed in further detail at your follow-up appointment, if applicable. Discharge Plan Admission Admit Date/Time: 02/27/22 15:30 Primary Reason for Your Visit: Acute on recurrent pancreatitis Attending Provider: John Paul Araujo Primary Care Provider: Souleymane Kelly NP Consulting Providers: Mg Patel ; Ana Yuan Discharge Orders/Prescriptions Prescriptions: New losartan 50 mg Tablet 50 mg PO DAILY Qty: 30 RF: 2 simethicone [Gas Relief (simethicone)] 80 mg Tablet,Chewable 80 mg PO TIDPC Qty: 90 RF: 0 Continued amitriptyline 25 mg tablet 25 mg PO QHS RF: 0 gabapentin 300 mg capsule 300 mg PO BID RF: 0 amlodipine 10 mg tablet 10 mg PO DAILY Qty: 30 RF: 11 levetiracetam 500 mg tablet 500 mg PO BID Qty: 60 RF: 4 nitroglycerin 0.4 MG tablet 0.4 mg sublingual Q5M PRN (Reason: Chest Pain) RF: 0 cholecalciferol (vitamin D3) 5,000 capsule 1 cap PO DAILY RF: 0 insulin glargine 100 UNIT/ML solution 10 unit SQ QHS RF: 0 acetaminophen 325 MG tablet 650 mg PO Q6H PRN PRN (Reason: Pain Score 1-10/Temp > 100.7 F) Qty: 30 RF: 1 latanoprost 0.005 % drops 1 drp EACH EYE QHS RF: 0 tamsulosin 0.4 mg Capsule 0.4 mg PO DAILY RF: 0 pantoprazole 40 mg Tablet,Delayed Release (Dr/Ec) 40 mg PO DAILY RF: 0 pravastatin 40 mg Tablet 60 mg PO QHS RF: 0 magnesium oxide 400 mg (241.3 mg magnesium) tablet 400 mg PO BID RF: 0 lactulose 10 gram/15 mL solution 10 g PO DAILY RF: 0 metformin 500 MG tablet 500 mg PO BID Qty: 0 RF: 0 aspirin 81 mg tablet,chewable 81 mg PO DAILY@0800 Qty: 30 RF: 11 hydrochlorothiazide 25 mg tablet 25 mg PO DAILY Qty: 30 RF: 11 Changed loratadine 10 MG capsule 10 mg PO DAILY PRN (Reason: Allergic Symptoms) Qty: 0 RF: 0 Discontinued losartan 25 mg Tablet 25 mg PO DAILY RF: 0 Referrals / Follow Up: Taras Santamaria DO [STAFF PHYSICIAN] - Within 1 Month (For acute on recurrent pancreatitis) Souleymane Kelly NP, ASSISTANT TRACK AND FIELD COACH-C [Primary Care Provider] - Within 2 Weeks Disposition Disposition (needs filled in before D/C Order can be placed): Home, Self Care
--- NOTE | 2022-03-04 09:00 | PCM.PROGNOTE ---
Subjective Subjective The patient is actually doing very well. He is tolerating the diet. He was able to express less bloating, abdominal distention and actually had a bowel movement. Objective Data Objective Data Vital Signs: Vital Signs Temp Pulse Resp BP Pulse Ox 98.0 F 90 16 158/92 H 94 03/04/22 09:16 03/04/22 09:16 03/04/22 09:16 03/04/22 09:16 03/04/22 09:16 Oxygen Delivery Method Room Air Weight: 193 lb 12.581 oz Body Mass Index (BMI) 28.2 Intake & Output: Intake and Output for Last 24 Hours 03/02/22 03/03/22 03/04/22 23:59 23:59 23:59 Intake Total 1235 / 1235 3102.5 / 3252.5 4807.5 / 4807.5 Output Total 4320 / 5470 3400 / 4100 2950 / 2950 Balance -3085 / -4235 -297.5 / -847.5 1857.5 / 1857.5 Lab / Micro Data Result Diagrams: 03/03/22 05:03 03/04/22 05:17 Labs: Laboratory Results - last 24 hr 03/03/22 16:55: POC Glucose 207 H 03/03/22 20:53: POC Glucose 171 H 03/04/22 00:30: POC Glucose 145 H 03/04/22 05:17: Sodium 139, Potassium 3.6, Chloride 106, Carbon Dioxide 28.0, Anion Gap 5, BUN 9, Creatinine 0.96, Estim Creat Clear Calc 88.72, Est GFR (MDRD) Af Amer 105, Est GFR (MDRD) Non-Af 86, BUN/Creatinine Ratio 9.4 L, Glucose 137 H, Calcium 9.3, Total Bilirubin 0.80, AST 19, ALT 28, Alkaline Phosphatase 50, Total Protein 7.2, Albumin 3.6, Globulin 3.6, Albumin/Globulin Ratio 1.0 03/04/22 06:36: POC Glucose 181 H 03/04/22 11:26: POC Glucose 215 H Physical Exam Const alert General Appearance: cooperative Orientation / Consciousness: oriented to person HEENT hearing grossly normal bilaterally Head and Scalp: normal to inspection Face and Sinus: face symmetric Nose: external nose normal Mouth: oral and palatal mucosa normal Eyes conjunctivae normal General Eye: normal appearance of both eyes Neck full ROM General: normal visual inspection Lymph Lymphatic: no lymphadenopathy noted Chest inspection of chest normal and palpation of chest normal Chest: symmetrical chest wall rise Resp normal respiratory effort Effort and Inspection: able to speak in complete sentences Cardio regular rate GI non-distended Percussion: normal to percussion Rectal Exam: deferred Neuro Speech: speech normal Gait (Neuro): normal gait Assessment & Plan Assessment/Plan (1) Acute pancreatitis: QUALIFIERS: Pancreatitis type: unspecified pancreatitis type Acute pancreatitis complication: unspecified Qualified Code(s): K85.90 - Acute pancreatitis without necrosis or infection, unspecified PLAN: Acute pancreatitis secondary to alcohol. He experienced complications of gastroparesis and ileus. He was treated with Reglan therapy and azithromycin. Diet. Recommend that he continue azithromycin for 5 days. Obviously he should avoid alcohol at all cost. As an outpatient he can get triglycerides checked as well and work-up for autoimmune pancreatitis. Patient also CT scan with pancreatic protocol in approximately 6 weeks to look for signs of pseudocyst formation chronic pancreatitis. Charges/Coding Visit Charges Inpatient E&M: 33288 Subs Hosp L2
[2022-03-04 09:16] VITALS: BP 158/92; PULSE 90; RESP 16; TEMP 36.7; O2SAT 94
[2022-03-04] MEDS: amLODIPine 10 MG Tablet PO (09:21)
[2022-03-04] MEDS: Potassium Chloride Oral Tablet 20 MEQ 40 MEQ PO (09:21)
[2022-03-04] MEDS: Lactulose 20 GM/30 ML UDC 10 GM PO (09:21)
[2022-03-04] MEDS: Pantoprazole Sodium 40 MG Tablet PO (09:21)
[2022-03-04] MEDS: hydroCHLOROthiazide 25 MG Tablet PO (09:21)
[2022-03-04] MEDS: Tamsulosin HCl 0.4 MG Capsule PO (09:21)
[2022-03-04] MEDS: levETIRAcetam 500 MG Tablet PO (09:21)
[2022-03-04] MEDS: Aspirin 81 MG TAB.CHEW PO (09:21)
[2022-03-04] MEDS: Loratadine 10 MG Tablet PO (09:21)
[2022-03-04] MEDS: Losartan Potassium 50 MG Tablet PO (09:21)
[2022-03-04] MEDS: Enoxaparin 40 MG/0.4 ML Syringe SC (09:22)
[2022-03-04] MEDS: Gabapentin 300 MG Capsule PO (09:22)
[2022-03-04 11:02] LABS: Bedside Glucose 181 mg/dL (74-106)
--- NOTE | 2022-03-04 11:36 | DS.PCM_ITS ---
Providers Date of Admission: 02/27/22 Date of Discharge: 03/04/22 Primary Care Physician: TORY Aldridge Consultations 03/02/22 11:02 Consult: Gastroenterology Routine Consulting Provider: [facility] Reason for Consult: acute on chronic pancreatitis EMERGENT Consult: No MD Notified: Yes Date Notified: 03/02/22 Time Notified: 11:02 Method of Notification: Verbal Reason For Visit: PANCREATITIS Diagnosis Discharge Diagnosis (1) Acute pancreatitis: Status: Resolved Code(s): K85.90 - Acute pancreatitis without necrosis or infection, unspecified Qualifiers: Pancreatitis type: unspecified pancreatitis type Acute pancreatitis complication: unspecified Qualified Code(s): K85.90 - Acute pancreatitis without necrosis or infection, unspecified (2) Leukocytosis: Status: Resolved Code(s): D72.829 - Elevated white blood cell count, unspecified Medications at Discharge Home Medications nitroglycerin 0.4 mg SUBLINGUAL Q5M PRN 07/15/13 amitriptyline 25 mg tablet 25 mg PO QHS 07/03/18 cholecalciferol (vitamin D3) 1 cap PO DAILY 11/09/18 aspirin 81 mg chewable tablet 81 mg PO DAILY@0800 #30 tab 04/09/20 hydrochlorothiazide 25 mg tablet 25 mg PO DAILY #30 tab 06/05/20 gabapentin 300 mg capsule 300 mg PO BID cap 10/06/20 insulin glargine 10 unit SQ QHS 12/30/20 acetaminophen 650 mg PO Q6H PRN PRN #30 tablet 01/01/21 levetiracetam 500 mg tablet 500 mg PO BID #60 tab 09/02/21 amlodipine 10 mg tablet 10 mg PO DAILY #30 tab 09/10/21 latanoprost 1 drp EACH EYE QHS 12/07/21 lactulose 10 g PO DAILY 02/27/22 magnesium oxide 400 mg PO BID 02/27/22 pantoprazole 40 mg PO DAILY 02/27/22 pravastatin 60 mg PO QHS 02/27/22 tamsulosin 0.4 mg PO DAILY 02/27/22 loratadine 10 mg PO DAILY PRN #0 cap 03/04/22 losartan 50 mg PO DAILY #30 tab 03/04/22 metformin 500 mg PO BID #0 tab 03/04/22 simethicone [Gas Relief (simethicone)] 80 mg PO TIDPC #90 tab 03/04/22 Hospital Course Summary of Care Provided Hospital Course: This 56-year-old question gentleman admitted with abdominal pain with history of chronic pancreatitis and chronic alcohol use and dependence. Patient was sober for couple months and then he relapsed. Abdominal pain was severe in epigastric region with radiation to back along with nausea and vomiting. Clinical history, labs and imaging consistent with acute on recurrent pancreatitis. Patient was [facility] floor. Acute on recurrent pancreatitis: Patient had ultrasound and MRCP done about a year ago. Ultrasound showed fatty liver and obscured pancreas, MRCP reported normal after cholecystectomy. ESR and CRP elevated. Patient was treated with IV fluid, n.p.o. conservative method. For CT abdomen showed inflammatory stranding surrounding pancreatic head and body consistent with acute pancreatitis. No evidence of fluid collection or abscess. Repeat CT of the abdomen and pelvis showed diffuse fatty infiltration of the liver, hepatomegaly, stable cyst in the anterior aspect of the left lobe of the liver, and minimal residual stranding in the peripancreatic region that has improved since previous study Gradually diet was resumed. Patient tolerating full liquid. Hypokalemia: Potassium replaced -Resolved Hypertension: Blood pressure elevated. On HCTZ and amlodipine. Losartan was increased to 50 mg daily - DM-2: Blood sugar was 153. Accu-Cheks with before meals and at bedtime with Humalog sliding scale and on Lantus. Metformin to be resumed from tomorrow a.m. - Neuropathy -Continue gabapentin -Continue amitriptyline History of seizure disorder -Continue home Keppra History of hyperammonemia -Continue home lactulose GERD -Continue Protonix Hyperlipidemia -Continue pravastatin BPH -Continue Flomax DVT prophylaxis -Continue enoxaparin CODE STATUS -Full code Discharge medication reconciliation done. Discharge follow-up instructions completed. Discharge process discussed with the patient and all questions were answered to patient's satisfaction. Total time spent, exact 35 minutes on discharge meds reconciliation, examinat ion, coordination of care with nurses and ancillary staff, review of imaging and blood test and discussion with the patient on follow-up instructions. Physical Exam Narrative Seen and examined. Patient abdominal pain has almost resolved. Mild abdominal discomfort. Passing flatus. Patient was advised total alcohol cessation. Physical exam General: Alert, Oriented x3, Cooperative HEENT: Atraumatic, PERRLA, EOMI, Normocephalic Oral: No Gingival or Mucosal Lesions/ Ulcerations Neck: Supple, No JVD, Negative Carotid Bruits Lungs: Air entry diminished in bilateral lung bases. No crepitation/rhonchi Cardiovascular: Regular rate, Regular Rhythm, Normal S1, Normal S2, No murmurs Abdomen: Bowel Sounds Present, Soft, Non Tender, Non-Distended : No renal angle tenderness. No suprapubic tenderness. Extremities: No edema, Capillary Refill Less than 3 Seconds Skin: No rashes, No breakdown Musculoskeletal: No Tenderness to Palpation of Joints or Extremities Neurological: Cranial nerves II-XII grossly intact, DTR 2+/4 and Symmetrical, Neuro grossly intact Psych/Mental Status: Normal Affect, Appropriate. Weight / BMI Weight Weight: 193 lb 12.581 oz Body Mass Index (BMI) 28.2 ABG / Lab / Microbiology Data Result Diagrams: 03/03/22 05:03 03/04/22 05:17 Laboratory: Laboratory Results - last 24 hr 03/03/22 11:42: POC Glucose 232 H 03/03/22 16:55: POC Glucose 207 H 03/03/22 20:53: POC Glucose 171 H 03/04/22 00:30: POC Glucose 145 H 03/04/22 05:17: Sodium 139, Potassium 3.6, Chloride 106, Carbon Dioxide 28.0, Anion Gap 5, BUN 9, Creatinine 0.96, Estim Creat Clear Calc 88.72, Est GFR (MDRD) Af Amer 105, Est GFR (MDRD) Non-Af 86, BUN/Creatinine Ratio 9.4 L, Glucose 137 H, Calcium 9.3, Total Bilirubin 0.80, AST 19, ALT 28, Alkaline Phosphatase 50, Total Protein 7.2, Albumin 3.6, Globulin 3.6, Albumin/Globulin Ratio 1.0 03/04/22 06:36: POC Glucose 181 H D/C Instructions Discharge Diet: Light diet - advance as tolerated and [place] diet ( Soft extra food, avoid oily, fried and fatty food.) Weight Bearing Status: Weight bearing as tolerated Call your doctor if you observe: Fever of 101 or Higher, Coldness, Increased Pain, Numbness or Tingling, Change in Color, Inability to urinate, Inability to have a bowel movement, Shortness of breath, Dizziness, Fainting spells, Swelling in the ankles, Chest pain, Prolonged hiccupping, Increased palpitations (irregular heartbeat), Calf discomfort and Uncontrolled pain Meaningful Use Info Meaningful Use Diagnoses (Choose all that apply): None applicable Discharge Plan Admission Admit Date/Time: 02/27/22 15:30 Primary Reason for Your Visit: Acute on recurrent pancreatitis Attending Provider: John Paul Araujo Primary Care Provider: Souleymane Kelly RETAIL SALES ASSISTANT Consulting Providers: Mg Patel ; Ana Yuan Discharge Orders/Prescriptions Prescriptions: New losartan 50 mg Tablet 50 mg PO DAILY Qty: 30 RF: 2 simethicone [Gas Relief (simethicone)] 80 mg Tablet,Chewable 80 mg PO TIDPC Qty: 90 RF: 0 Continued amitriptyline 25 mg tablet 25 mg PO QHS RF: 0 gabapentin 300 mg capsule 300 mg PO BID RF: 0 amlodipine 10 mg tablet 10 mg PO DAILY Qty: 30 RF: 11 levetiracetam 500 mg tablet 500 mg PO BID Qty: 60 RF: 4 nitroglycerin 0.4 MG tablet 0.4 mg sublingual Q5M PRN (Reason: Chest Pain) RF: 0 cholecalciferol (vitamin D3) 5,000 capsule 1 cap PO DAILY RF: 0 insulin glargine 100 UNIT/ML solution 10 unit SQ QHS RF: 0 acetaminophen 325 MG tablet 650 mg PO Q6H PRN PRN (Reason: Pain Score 1-10/Temp > 100.7 F) Qty: 30 RF: 1 latanoprost 0.005 % drops 1 drp EACH EYE QHS RF: 0 tamsulosin 0.4 mg Capsule 0.4 mg PO DAILY RF: 0 pantoprazole 40 mg Tablet,Delayed Release (Dr/Ec) 40 mg PO DAILY RF: 0 pravastatin 40 mg Tablet 60 mg PO QHS RF: 0 magnesium oxide 400 mg (241.3 mg magnesium) tablet 400 mg PO BID RF: 0 lactulose 10 gram/15 mL solution 10 g PO DAILY RF: 0 metformin 500 MG tablet 500 mg PO BID Qty: 0 RF: 0 aspirin 81 mg tablet,chewable 81 mg PO DAILY@0800 Qty: 30 RF: 11 hydrochlorothiazide 25 mg tablet 25 mg PO DAILY Qty: 30 RF: 11 Changed loratadine 10 MG capsule 10 mg PO DAILY PRN (Reason: Allergic Symptoms) Qty: 0 RF: 0 Discontinued losartan 25 mg Tablet 25 mg PO DAILY RF: 0 Referrals / Follow Up: Taras Santamaria DO [STAFF PHYSICIAN] - Within 1 Month (For acute on recurrent pancreatitis) Souleymane Kelly NP, RETAIL SALES ASSISTANT-C [Primary Care Provider] - Within 2 Weeks Disposition Disposition (needs filled in before D/C Order can be placed): Home, Self Care Charges/Coding Visit Charges Inpatient E&M: 77536 Disch Hosp
[2022-03-04 11:56] LABS: Bedside Glucose 215 mg/dL (74-106)
--- NOTE | 2022-03-04 12:53 | CASEMGMT ---
Social Work SW checked in w/pt, he states he is doing better, is feeling better. He states he got homesick. He is going home today however, did ask about a ride home. SW asked RN, it's set up for a pickup between 2-2:30. SW let pt know. SW asked if he needed any assist in making mental health appointments. He states he is going to follow up at [facility]. He states there is a wait but he is going to wait, was not interested in going elsewhere. SW did let him know if he needs to speak w/someone they do have crisis workers who can speak on the phone w/him or meet w/him if needed. Pt states understanding. He mentioned that he has some friends he can talk with too that are supportive. He does not anticipate any other homegoing needs. Pt home today. TIM Rahman
[2022-03-04 13:12] VITALS: BP 141/95; PULSE 81; RESP 18; TEMP 36.6; O2SAT 95
== END 2022-03-04 13:59 | disposition home or self-care (01) | DRG 439 ==
LOC: ED 12:59 → MS3 15:54
PROVIDERS: Internal Medicine; Admitting Provider Internal Medicine; Emergency Provider Student in an Organized Health Care Education/Training Program; PCP Nurse Practitioner Family; Visit Provider Internal Medicine
DX: K85.20 Alcohol induced acute pancreatitis without necrosis or infection (principal); K56.7 Ileus, unspecified; E83.39 Other disorders of phosphorus metabolism; E11.40 Type 2 diabetes mellitus with diabetic neuropathy, unspecified; K31.84 Gastroparesis; D72.829 Elevated white blood cell count, unspecified; E78.5 Hyperlipidemia, unspecified; G40.909 Epilepsy, unspecified, not intractable, without status epilepticus; Z79.4 Long term (current) use of insulin; K86.0 Alcohol-induced chronic pancreatitis; I16.0 Hypertensive urgency; I10 Essential (primary) hypertension; E87.6 Hypokalemia; K21.9 Gastro-esophageal reflux disease without esophagitis; N40.0 Benign prostatic hyperplasia without lower urinary tract symptoms; G89.29 Other chronic pain; Z79.82 Long term (current) use of aspirin; Z79.899 Other long term (current) drug therapy; Z87.891 Personal history of nicotine dependence
CPT/HCPCS: 36415; 74177; 80048; 80053; 80076; 81001; 82077; 82140; 82962; 83690; 83735; 84100; 85025; 85652; 86141; 97802; 99251; 99285; J7030; J7040; J7120; Q9967; A4216; G0463; J2405

== ENCOUNTER 2022-03-06 22:07 | Emergency (ER) | payer MEDICARE, MEDICAID, SELFPAY ==
[2022-03-06 22:07] VITALS: BP 150/95; PULSE 99; RESP 15; TEMP 35.7; O2SAT 98; BMI 27.8
--- NOTE | 2022-03-06 22:48 | EKG12_ITS ---
Test Reason : ABD PAIN Blood Pressure : / mmHG Vent. Rate : 083 BPM Atrial Rate : 083 BPM P-R Int : 136 ms QRS Dur : 086 ms QT Int : 372 ms P-R-T Axes : 067 -01 035 degrees QTc Int : 437 ms Normal sinus rhythm Nonspecific T wave abnormality Abnormal ECG Confirmed by CHIP CADE, TAPAN ([id number]), supervising editor news reel ERNA STERN ([id number]) on 03/07/2022 11:23:10 AM Referred By: IFEANYI Confirmed By:TAPAN SAUNDERS MD
--- NOTE | 2022-03-06 22:54 | EDS_ITS ---
HPI History of Present Illness Chief Complaint: Abd Pain Informant: patient Narrative Narrative: Patient presents with worsening of his pancreatitis. He states the exact pain is occurring. He was just in the hospital for about 5 days. He has been gone for couple days. He states he was still hurting when he left. He has been trying to take Tylenol and Benadryl for the pain. He has nothing else for pain. He has nothing for nausea. He has not vomited but the nausea is kicking up again this evening which is a big reason he came in. He states that Tylenol and Benadryl calms the pain a little bit but not much. He is not drinking any alcohol since he has left the hospital. No fevers or chills. Nothing really makes the pain better or worse. He has been able to eat but has been avoiding greasy foods. He states eating bothers it a little bit but not dramatically. [facility] Medical History Acute pancreatitis Alcohol abuse Anxiety and depression Cancer Cerebrovascular disease Chronic hip pain Chronic pain Constipation Diabetes Diabetes mellitus type 2 in nonobese Essential (primary) hypertension Family history of cerebral aneurysm Former tobacco use Gastric ulcer GERD (gastroesophageal reflux disease) GERD (gastroesophageal reflux disease) GI bleed Glaucoma Hyperlipidemia Neck pain Other generalized epilepsy and epileptic syndromes, not intractable, without status epilepticus Pancreatitis Polyneuropathy PSA elevation PTSD (post-traumatic stress disorder) Seizure disorder TIA (transient ischemic attack) Type 2 diabetes mellitus Vision loss of left eye Vision loss of right eye Home Medications nitroglycerin 0.4 mg SUBLINGUAL Q5M PRN 07/15/13 [History Last Taken 08/22/15] amitriptyline 25 mg tablet 25 mg PO QHS 07/03/18 [History Last Taken 02/26/22] cholecalciferol (vitamin D3) 1 cap PO DAILY 11/09/18 [History Last Taken 02/26/22] aspirin 81 mg chewable tablet 81 mg PO DAILY@0800 #30 tab 04/09/20 [Rx Last Taken 02/26/22] hydrochlorothiazide 25 mg tablet 25 mg PO DAILY #30 tab 06/05/20 [Rx Last Taken 02/26/22] gabapentin 300 mg capsule 300 mg PO BID cap 10/06/20 [History Last Taken 02/26/22] insulin glargine 10 unit SQ QHS 12/30/20 [History Last Taken 02/26/22] acetaminophen 650 mg PO Q6H PRN PRN #30 tablet 01/01/21 [Rx Last Taken Unknown] levetiracetam 500 mg tablet 500 mg PO BID #60 tab 09/02/21 [Rx Last Taken 02/26/22] amlodipine 10 mg tablet 10 mg PO DAILY #30 tab 09/10/21 [Rx Last Taken 02/26/22] latanoprost 1 drp EACH EYE QHS 12/07/21 [History Last Taken Unknown] lactulose 10 g PO DAILY 02/27/22 [History Last Taken Unknown] magnesium oxide 400 mg PO BID 02/27/22 [History Last Taken Unknown] pantoprazole 40 mg PO DAILY 02/27/22 [History Last Taken 02/26/22] pravastatin 60 mg PO QHS 02/27/22 [History Last Taken Unknown] tamsulosin 0.4 mg PO DAILY 02/27/22 [History Last Taken 02/26/22] loratadine 10 mg PO DAILY PRN #0 cap 03/04/22 [Rx Last Taken 02/26/22] losartan 50 mg PO DAILY #30 tab 03/04/22 [Rx Last Taken Unknown] metformin 500 mg PO BID #0 tab 03/04/22 [Rx Last Taken 02/26/22] simethicone [Gas Relief (simethicone)] 80 mg PO TIDPC #90 tab 03/04/22 [Rx Last Taken Unknown] ondansetron 4 mg PO Q8H PRN #10 tab 03/07/22 [Rx Last Taken Unknown] oxycodone-acetaminophen [Percocet] 1 tab PO Q6H PRN 3 Days #10 tab 03/07/22 [Rx Last Taken Unknown] Allergy/AdvReac Type Severity Reaction Status Date / Time lisinopril Allergy Angioedema Verified 03/06/22 22:12 cyclobenzaprine AdvReac Severe Skin Verified 03/06/22 22:12 crawling hydrocodone bitartrate AdvReac Itching Verified 03/06/22 22:12 [From Vicodin] hydromorphone [From Dilaudid] AdvReac Itching Verified 03/06/22 23:11 morphine AdvReac Itching Verified 03/06/22 22:12 tramadol AdvReac Itching Verified 03/06/22 22:12 Family History Mother Heart disease Sister Cerebral aneurysm Surgical History History of cholecystectomy (12/2013) History of left heart catheterization (10/31/11) Social History Smoking Status: Former smoker Tobacco: How many years used: 7 Electronic Cigarette Use: not used alcohol intake: current alcohol intake frequency: holidays/special occasions only Alcohol type: beer details: states a couple beers every now on then, does not have daily substance use type: does not use ROS ROS ED Constitutional Constitutional ED: Denies chills or fever(s) Cardiovascular Cardiovascular: Denies chest pain, palpitations or racing heartbeat Respiratory/Chest Respiratory/Chest: Denies cough or dyspnea Gastrointestinal Gastrointestinal: Reports abdominal pain and nausea; Denies diarrhea or vomiting Genitourinary Genitourinary ED: Denies dysuria Musculoskeletal Musculoskeletal: Denies back pain Integumentary Denies rash Neurologic Neurologic: Denies headache(s) or weakness Psychiatric Psychiatric: Denies anxiety or depression Endocrine Endocrinology: Denies polydipsia or polyuria Allergic/Immunologic Allergic/Immunologic ED: Denies urticaria EXAM Physical Exam Const Vital Signs: 03/06/22 22:07 Temperature 96.3 F L Temperature Source Temporal Pulse Rate 99 Respiratory Rate 15 Blood Pressure 150/95 H Blood Pressure Mean 113 Pulse Ox 98 Oxygen Delivery Method Room Air Positive well nourished and well developed General Appearance ED: well developed and NAD HEENT Reports moist mucous membranes Eyes General Eye ED: Negative for pale conjunctiva or scleral icterus Neck no JVD Chest Wall inspection of chest normal Resp normal respiratory effort and clear to auscultation bilaterally Effort and Inspection: Negative for pain with movement Auscultation: Negative for rales, rhonchi or wheezes Cardio regular rate, regular rhythm and no murmurs GI normal to inspection, nondistended, normoactive bowel sounds GI Narrative: Patient's abdomen does have some mild epigastric tenderness but no rebound or guarding. There is small ecchymosis down his right lower quadrant likely from either Lovenox or insulin. There is some skin change in the epigastrium but it does not look like shingles. It looks like a contact dermatitis or possibly an injection site. No vesicles. Palpation: soft Back/Spine no CVA tenderness Extremity normal to inspection General Extremety ED: Negative for edema or tenderness General Extremity: Negative for edema Neuro oriented x3 Sensorium / Orientation: alert Psych mental status grossly normal Skin Skin Narrative: See above. MDM MDM MDM Narrative Medical decision making narrative: Patient CBC is overall unremarkable. Electrolytes look good except for mild dehydration. His glucose is up a little bit at 327. This is treated with some IV fluids. I can give him a small dose of lispro here. Lipase is elevated but is still trending down. Alcohol is negative. Lactate is normal. I talked with the patient. He is feeling better. He would also like not to have another CAT scan. He had 2 since his recent visit. I think this is reasonable. He is still eating drinking. Had some nausea and pain but no vomiting. I think I can get a meds for pain and nausea. We reviewed foods to avoid. We also reviewed reasons to return. Lab Data Attestation: I reviewed the patient's lab results. Labs: Laboratory Results - last 24 hr 03/06/22 03/06/22 03/06/22 22:20 22:20 22:20 WBC 10.5 RBC 4.28 L Hgb 13.5 Hct 39.9 L MCV 93.2 MCH 31.5 MCHC 33.8 RDW Std Deviation 44.8 H RDW Coeff of Armin 13.2 Plt Count 213 MPV 10.0 Immature Gran % (Auto) 0.400 Neut % (Auto) 55.4 Lymph % (Auto) 33.5 [place] % (Auto) 8.4 Eos % (Auto) 1.7 Baso % (Auto) 0.6 Absolute Neuts (auto) 5.8 Absolute Lymphs (auto) 3.50 Nucleated RBC % 0 Sodium 138 Potassium 3.9 Chloride 105 Carbon Dioxide 27.0 Anion Gap 6 BUN 18 Creatinine 1.41 H Estim Creat Clear Calc 60.40 Est GFR (MDRD) Af Amer 67 Est GFR (MDRD) Non-Af 55 L BUN/Creatinine Ratio 12.8 Glucose 327 H Lactic Acid Calcium 9.6 Total Bilirubin 0.40 AST 25 ALT 30 Alkaline Phosphatase 79 Total Protein 7.9 Albumin 4.1 Globulin 3.8 Albumin/Globulin Ratio 1.1 Lipase 709 H Ethyl Alcohol < 3.0 03/06/22 22:20 WBC RBC Hgb Hct MCV MCH MCHC RDW Std Deviation RDW Coeff of Armin Plt Count MPV Immature Gran % (Auto) Neut % (Auto) Lymph % (Auto) [place] % (Auto) Eos % (Auto) Baso % (Auto) Absolute Neuts (auto) Absolute Lymphs (auto) Nucleated RBC % Sodium Potassium Chloride Carbon Dioxide Anion Gap BUN Creatinine Estim Creat Clear Calc Est GFR (MDRD) Af Amer Est GFR (MDRD) Non-Af BUN/Creatinine Ratio Glucose Lactic Acid 1.8 Calcium Total Bilirubin AST ALT Alkaline Phosphatase Total Protein Albumin Globulin Albumin/Globulin Ratio Lipase Ethyl Alcohol EKG Initial EKG: Comments: EKG done for upper abdominal pain and 56-year-old diabetic. EKG read by me shows a normal sinus rhythm. There are some nonspecific ST and T wave change. There is some mild J-point elevation in V2 but this is similar and actually a little less than his old ones. SC interval, QRS duration and QTc are normal. Discharge Plan Triage Chief Complaint: Abd Pain ED Provider: Magno Mora Dx/Rx/DC Orders Clinical Impression: Pancreatitis, Dehydration, Hyperglycemia Instructions: ED Pancreatitis Prescriptions: New oxycodone-acetaminophen [Percocet] 5-325 mg tablet 1 tab PO Q6H PRN (Reason: pain) 3 Days Qty: 10 RF: 0 ondansetron 4 mg tablet,disintegrating 4 mg PO Q8H PRN (Reason: nausea and vomiting) Qty: 10 RF: 0 No Action amitriptyline 25 mg tablet 25 mg PO QHS RF: 0 gabapentin 300 mg capsule 300 mg PO BID RF: 0 amlodipine 10 mg tablet 10 mg PO DAILY Qty: 30 RF: 11 levetiracetam 500 mg tablet 500 mg PO BID Qty: 60 RF: 4 nitroglycerin 0.4 MG tablet 0.4 mg sublingual Q5M PRN (Reason: Chest Pain) RF: 0 cholecalciferol (vitamin D3) 5,000 capsule 1 cap PO DAILY RF: 0 insulin glargine 100 UNIT/ML solution 10 unit SQ QHS RF: 0 acetaminophen 325 MG tablet 650 mg PO Q6H PRN PRN (Reason: Pain Score 1-10/Temp > 100.7 F) Qty: 30 RF: 1 latanoprost 0.005 % drops 1 drp EACH EYE QHS RF: 0 tamsulosin 0.4 mg Capsule 0.4 mg PO DAILY RF: 0 pantoprazole 40 mg Tablet,Delayed Release (Dr/Ec) 40 mg PO DAILY RF: 0 pravastatin 40 mg Tablet 60 mg PO QHS RF: 0 magnesium oxide 400 mg (241.3 mg magnesium) tablet 400 mg PO BID RF: 0 lactulose 10 gram/15 mL solution 10 g PO DAILY RF: 0 losartan 50 mg Tablet 50 mg PO DAILY Qty: 30 RF: 2 simethicone [Gas Relief (simethicone)] 80 mg Tablet,Chewable 80 mg PO TIDPC Qty: 90 RF: 0 metformin 500 MG tablet 500 mg PO BID Qty: 0 RF: 0 loratadine 10 MG capsule 10 mg PO DAILY PRN (Reason: Allergic Symptoms) Qty: 0 RF: 0 aspirin 81 mg tablet,chewable 81 mg PO DAILY@0800 Qty: 30 RF: 11 hydrochlorothiazide 25 mg tablet 25 mg PO DAILY Qty: 30 RF: 11 Referrals: Marty Arora MD [STAFF PHYSICIAN] - 3-5 Days Disposition Disposition: Home, Self Care
[2022-03-06] MEDS: 0.9% Normal Saline 1,000 ML 1000 ML IV (23:14)
[2022-03-06] MEDS: HYDROmorphone 0.5 MG/0.5 ML SYRINGE IV (23:16)
[2022-03-06] MEDS: DiphenhydrAMINE 50 MG/ML Syringe 25 MG IV (23:16)
[2022-03-06] MEDS: Ondansetron 4 MG/2 ML Vial IV (23:16)
[2022-03-06 23:35] LABS: ALB/GLOB Ratio 1.1 RATIO (0.9-2.4); AST(SGOT) 25 U/L (15-37); Alanine Aminotransfer ALT/SGPT 30 U/L (16-61); Albumin, Serum 4.1 g/dL (3.2-5.0); Alkaline Phosphatase 79 U/L (45-117); Anion Gap 6 (5-15); BUN 18 mg/dL (7-18); BUN/Creat Ratio 12.8 RATIO (10-20); Calcium,Total 9.6 mg/dL (8.5-10.1); Chloride 105 mmol/L (98-107); Creatinine, Serum 1.41 mg/dL (0.70-1.30); EST Glomerular Filtration Rate 55 mL/min (>60); Est Glom Filt Rate - Afr Amer 67 mL/min (>60); Globulin 3.8 g/dL (2.2-4.2); Glucose 327 mg/dL (74-106); Lipase 709 U/L (73-393); Potassium 3.9 mmol/L (3.5-5.1); Protein, Total 7.9 g/dL (6.4-8.2); Sodium Level 138 mmol/L (136-145)
[2022-03-06 23:36] LABS: Absolute Neutrophil Count 5.8 X10^3/uL (2.0-7.7); Basophil# 0.06 X10^3/uL; Basophil% 0.6 % (0-1); Eosinophil# 0.18 X10^3/uL; Eosinophils% 1.7 % (0-5); Hematocrit 39.9 % (40-54); Hemoglobin 13.5 g/dL (13.0-16.5); Lymphocyte % 33.5 % (19-41); Mean Corp Hgb Conc 33.8 g/dL (32-36); Mean Corpuscular Hgb 31.5 pg (27.0-32.0); Mean Corpuscular Volume 93.2 fL (80-94); Monocyte# 0.88 X10^3/uL; Monocyte% 8.4 % (0-10); NRBC Flagged by Analyzer 0 % (0-5); Neutrophil % 55.4 % (47-70); Platelet Count 213 K/mm3 (150-450); RBC Distribution Width CV 13.2 % (11.6-14.6); RBC Distribution Width SD 44.8 fl (35.1-43.9); Red Blood Count 4.28 M/mm3 (4.6-6.2); White Blood Count 10.5 K/mm3 (4.4-11.0)
[2022-03-06 23:54] LABS: Lactic Acid 1.8 mmol/L (0.4-1.9)
[2022-03-07 00:11] LABS: Alcohol, Blood (Medical)-Serum < 3.0 mg/dL
[2022-03-07 00:34] VITALS: BP 146/92; PULSE 83; RESP 16; O2SAT 98
[2022-03-07] MEDS: Insulin Lispro 100 UNIT/ML INSULN.PEN 6 UNIT SC (00:35)
[2022-03-07 00:41] LABS: Bedside Glucose 283 mg/dL (74-106)
== END 2022-03-07 01:21 | disposition home or self-care (01) ==
PROVIDERS: Emergency Provider Emergency Medicine; Visit Provider Emergency Medicine
DX: K85.90 Acute pancreatitis without necrosis or infection, unspecified (principal); E11.65 Type 2 diabetes mellitus with hyperglycemia; E11.42 Type 2 diabetes mellitus with diabetic polyneuropathy; E86.0 Dehydration; I10 Essential (primary) hypertension; E78.5 Hyperlipidemia, unspecified; K21.9 Gastro-esophageal reflux disease without esophagitis; G89.29 Other chronic pain; Z79.82 Long term (current) use of aspirin; Z79.84 Long term (current) use of oral hypoglycemic drugs; Z79.899 Other long term (current) drug therapy; Z87.891 Personal history of nicotine dependence
CPT/HCPCS: 96360; 99281; 80053; 82077; 82962; 83605; 83690; 85025; 93005; 96361; 96374; 96375; 99282; J7030; A4216; J2405

== ENCOUNTER → 2022-03-25 | Outpatient (CLI) | payer MEDICARE, MEDICAID, SELFPAY ==
[2022-03-25 16:26] LABS: Absolute Lymphocyte Count 3.72 X10^3/uL (0.83-4.51); Basophil# 0.08 X10^3/uL; Basophil% 0.5 % (0-1); Eosinophils% 0.6 % (0-5); Hematocrit 40.8 % (40-54); Hemoglobin 13.8 g/dL (13.0-16.5); Lymphocyte # 3.72 X10^3/ul (0.83-4.51); Lymphocyte % 23.2 % (19-41); Mean Corp Hgb Conc 33.8 g/dL (32-36); Mean Corpuscular Hgb 31.2 pg (27.0-32.0); Mean Corpuscular Volume 92.1 fL (80-94); Mean Platelet Vol. 9.9 fl (6.2-12.0); Monocyte# 1.05 X10^3/uL; Monocyte% 6.6 % (0-10); NRBC Flagged by Analyzer 0 % (0-5); Neutrophil # 11.03 X10^3/uL (2.7-7.7); Neutrophil % 68.9 % (47-70); Platelet Count 199 K/mm3 (150-450); RBC Distribution Width CV 12.7 % (11.6-14.6); RBC Distribution Width SD 43.1 fl (35.1-43.9); Red Blood Count 4.43 M/mm3 (4.6-6.2)
[2022-03-25 16:35] LABS: Erythrocyte Sedimentation Rate 20 mm/hr (0-20)
[2022-03-25 16:37] LABS: International Normalized Ratio 1.1; Prothrombin Time (Protime)PT. 13.9 SECONDS (11.7-14.9)
[2022-03-25 17:28] LABS: ALB/GLOB Ratio 1.3 RATIO (0.9-2.4); AST(SGOT) 14 U/L (15-37); Alanine Aminotransfer ALT/SGPT 27 U/L (16-61); Albumin, Serum 4.5 g/dL (3.2-5.0); Alkaline Phosphatase 59 U/L (45-117); Anion Gap 10 (5-15); BUN 21 mg/dL (7-18); BUN/Creat Ratio 19.1 RATIO (10-20); CRP 5.28 mg/L (0.0-3.0); Calcium,Total 9.7 mg/dL (8.5-10.1); Chloride 104 mmol/L (98-107); Cholesterol 138 mg/dL (200); EST Glomerular Filtration Rate 73 mL/min (>60); Est Glom Filt Rate - Afr Amer 89 mL/min (>60); Globulin 3.5 g/dL (2.2-4.2); Glucose 81 mg/dL (74-106); High Density Lipoprotein 49 mg/dL; LDH 141 U/L (87-241); Lipase 188 U/L (73-393); Potassium 3.2 mmol/L (3.5-5.1); Sodium Level 138 mmol/L (136-145); Triglycerides 107 mg/dL; Very Low Density Lipoprotein 21 mg/dL (5-40)
[2022-03-30 15:08] LABS: Anti-Centromere B Ab <0.2 AI (0.0-0.9); Anti-Chromatin <0.2 AI (0.0-0.9); Anti-Jo <0.2 AI (0.0-0.9); Anti-Scleroderma-70 AB <0.2 AI (0.0-0.9); RNP Ab <0.2 AI (0.0-0.9); SJOGREN'S Anti-SS-A test < 0.2 AI (0.0-0.9); SJOGREN'S Anti-SS-B test < 0.2 AI (0.0-0.9); Smith Ab <0.2 AI (0.0-0.9)
[2022-03-30 20:43] LABS: Anti-Mitochondrial AB <20.0 Units (0.0-20.0); Anti-dsDNA Ab <1 IU/mL (0-9)
[2022-03-31 00:07] LABS: Angiotensin Convert Enzyme 37 U/L (14-82); Ceruloplasmin 23.9 mg/dL (16.0-31.0); Cytoplasmic Ab (C-ANCA) <1:20 titer (Neg:<1:20); IgG, Quant 1152 mg/dL (603-1613); Immunoglobulin G, Subclass 1 649 mg/dL (248-810); Immunoglobulin G, Subclass 2 291 mg/dL (130-555); Immunoglobulin G, Subclass 3 36 mg/dL (15-102); Immunoglobulin G, Subclass 4 75 mg/dL (2-96)
[2022-03-31 08:44] LABS: Anti-Smooth Muscle ABS 8 Units (0-19); Copper, Serum or Plasma 100 ug/dL (69-132); Haptoglobin 142 mg/dL (29-370); Perinuclear Ab (P-ANCA) <1:20 titer (Neg:<1:20)
== END | disposition home or self-care (01) ==
LOC: LAB 15:20
PROVIDERS: PCP Internal Medicine; Referring Provider Nurse Practitioner Adult Health; Visit Provider Nurse Practitioner Adult Health
DX: K85.90 Acute pancreatitis without necrosis or infection, unspecified (principal); K76.0 Fatty (change of) liver, not elsewhere classified; I10 Essential (primary) hypertension
CPT/HCPCS: 36415; 80053; 80061; 82140; 82164; 82390; 82525; 82653; 82705; 82784; 82787; 83010; 83516; 83615; 83690; 85025; 85610; 85652; 86140; 86225; 86235; 86256

== ENCOUNTER → 2022-04-06 | Outpatient (CLI) | payer MEDICARE, MEDICAID, SELFPAY ==
--- NOTE | 2022-04-06 07:45 | CT_ITS ---
STUDY: CT ABDOMEN AND PELVIS WITH AND WITHOUT CONTRAST REASON FOR EXAM: Male, 57 years old. Pancreatitis -- pancreas protocol RADIATION DOSAGE (If Supplied By Facility): CTDIvol = ( 13.95 ) mGy, DLP = ( 1084.29 ) mGycm TECHNIQUE: Transaxial images were obtained from the dome of the diaphragm to the symphysis pubis with oral contrast. Oral and amp;amp; IV Readi-CAT and amp;amp; 100mL Isovue-300 was administered. Sagittal and coronal images were reconstructed. Individualized dose optimization techniques were used for this CT. COMPARISON: Comparison is made with prior examination dated 03/03/2022. FINDINGS: The visualized lung bases are unremarkable. The visualized portions of the heart are within normal limits. There is decreased attenuation of the liver consistent with steatosis. Hepatomegaly. The patient is status post cholecystectomy. Normal spleen. Normal pancreas. Normal bilateral adrenal glands. Normal right kidney. Stable 1.5 cm cyst in the anterior lateral aspect of the left kidney. Normal visualized stomach. Normal small intestine. Normal colon. The appendix is visualized and appears normal. There is scattered atherosclerotic calcification of the abdominal aorta, without a demonstrated aneurysm. Normal inferior vena cava. Normal retroperitoneum. Normal urinary bladder. Normal abdominal wall. Normal osseous structures. CT/CT Abd/Pelvis W/WO Contrast IMPRESSION: Diffuse fatty infiltration of the liver. Hepatomegaly. Stable left renal cyst. Electronically Signed: Brendan Ty MD at 9:51 EDT ,
== END | disposition home or self-care (01) ==
LOC: CT 07:43
PROVIDERS: PCP Internal Medicine; Referring Provider Nurse Practitioner Adult Health; Visit Provider Nurse Practitioner Adult Health
DX: K85.90 Acute pancreatitis without necrosis or infection, unspecified (principal)
CPT/HCPCS: 74178; Q9967

== ENCOUNTER → 2022-04-15 | Outpatient (CLI) | payer MEDICARE, MEDICAID, SELFPAY ==
--- NOTE | 2022-04-15 08:55 | US_ITS ---
STUDY: ABDOMINAL ULTRASOUND - ELASTOGRAPHY REASON FOR VISIT: Male, 57 years old. Fatty infiltration of the liver. TECHNIQUE: Liver stiffness measurements were obtained on a [employer] RS 85 ultrasound machine using a CA 1-7 probe following the SRU guidelines. 3 measurements were obtained using a 2-D-SWE method. The IQR/M was 13% suggesting a quality data set. TECHNICAL QUALITY: Adequate. COMPARISON: Comparison is made with prior study done earlier today. FINDINGS: Liver: Fatty infiltration of the liver. Median liver stiffness measured 8.7 kPa. US/Elastography Parenchyma/Organ IMPRESSION: Liver stiffness measures 8.7 kPa compatible with F2-F3 (Mild to moderate liver fibrosis) Metavir score. Electronically Signed: Brendan Ty MD at 10:53 EDT ,
--- NOTE | 2022-04-15 08:55 | US_ITS ---
STUDY: ABDOMINAL ULTRASOUND - RIGHT UPPER QUADRANT REASON FOR VISIT: Male, 57 years old fatty liver -- for elastography TECHNIQUE: Ultrasound evaluation of the right upper quadrant was performed with real-time and static adam-scale imaging. TECHNICAL QUALITY: Adequate. COMPARISON: Comparison is made with prior study 05/13/2021. FINDINGS: Liver: The liver measures 16 cm. There is increased echogenicity consistent with fatty infiltration. The bile ducts are within normal limits. There is hepatic color flow. The direction of portal flow is hepatopetal. There is no demonstrated mass lesion. Gallbladder: The patient is status post cholecystectomy. Common Bile Duct (C.B.D.): The common bile duct measures 8 mm. Pancreas: Normal size of the head, body and tail of the pancreas. There is normal echogenicity of the pancreas. There is no demonstrated pancreatic mass or cyst. Right Kidney: Normal size of the right kidney. The right kidney measures 10.6 cm x 6.5 cm x 6.9 cm. Normal renal cortex. The right cortex measures 1.8 cm. There is no demonstrated renal mass or cyst. There is no right hydronephrosis. US/Abdomen Limited IMPRESSION: Fatty infiltration the liver. Status post cholecystectomy. Electronically Signed: Brendan Ty MD at 10:51 EDT ,
== END | disposition home or self-care (01) ==
LOC: US 08:54
PROVIDERS: PCP Internal Medicine; Referring Provider Nurse Practitioner Adult Health; Visit Provider Nurse Practitioner Adult Health
DX: K76.0 Fatty (change of) liver, not elsewhere classified (principal); Z90.49 Acquired absence of other specified parts of digestive tract
CPT/HCPCS: 76705; 76981

== ENCOUNTER 2022-07-04 10:40 | Emergency (ER) | payer MEDICARE, MEDICAID, SELFPAY ==
[2022-07-04 10:41] VITALS: BP 105/86; PULSE 109; RESP 18; TEMP 36.3; O2SAT 96; BMI 27.6
--- NOTE | 2022-07-04 11:01 | ED.VIS.GI ---
HPI HPI - GI History of Present Illness Chief Complaint: Abd Pain Narrative Narrative: Patient with past medical history of hypertension, pancreatitis, presents with epigastric pain that he has had for the last 3 days. 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 He states he also got it from eating the wrong foods. He is having epigastric pain that radiates to his back on both sides. Laying down makes it worse so that he has to be in an upright position. He denies any fevers or chills. He has nauseated but has not vomited. He denies any dysuria or hematuria but states he has prostate problems so sometimes has difficulty urinating. He wanted to make sure that with pain radiating to his back that it was not anything wrong with his kidneys. [facility] Medical History Acute pancreatitis Alcohol abuse Anxiety and depression Cancer Cerebrovascular disease Chronic hip pain Chronic pain Constipation Diabetes Diabetes mellitus type 2 in nonobese Essential (primary) hypertension Family history of cerebral aneurysm Former tobacco use Gastric ulcer GERD (gastroesophageal reflux disease) GERD (gastroesophageal reflux disease) GI bleed Glaucoma Hyperlipidemia Neck pain Other generalized epilepsy and epileptic syndromes, not intractable, without status epilepticus Pancreatitis Polyneuropathy PSA elevation PTSD (post-traumatic stress disorder) Seizure disorder TIA (transient ischemic attack) Type 2 diabetes mellitus Vision loss of left eye Vision loss of right eye Home Medications nitroglycerin 0.4 mg sublingual tablet 0.4 mg sublingual Q5M PRN Chest Pain 07/15/13 [History Last Taken 08/22/15] amitriptyline 25 mg tablet 25 mg PO QHS depression 07/03/18 [History Last Taken 07/03/22] cholecalciferol (vitamin D3) 125 mcg (5,000 unit) capsule 1 cap PO DAILY supplement 11/09/18 [History Last Taken 07/04/22] hydrochlorothiazide 25 mg tablet 25 mg PO DAILY blood pressure/heart #30 tabs 06/05/20 [Rx Last Taken 07/04/22] gabapentin 300 mg capsule 300 mg PO BID nerve pain 10/06/20 [History Last Taken 07/04/22] insulin glargine 100 unit/mL subcutaneous solution 10 unit SQ QHS diabetes 12/30/20 [History Last Taken 3 Days Ago ~07/01/22] latanoprost 0.005 % eye drops 1 drp EACH EYE QHS glucoma 12/07/21 [History Last Taken 07/03/22] lactulose 10 gram/15 mL oral solution 10 g PO DAILY 02/27/22 [History Last Taken 07/03/22] magnesium oxide 400 mg (241.3 mg magnesium) tablet 400 mg PO BID supplement 02/27/22 [History Last Taken 07/04/22] pantoprazole 40 mg tablet,delayed release 40 mg PO DAILY gerd 02/27/22 [History Last Taken 07/04/22] pravastatin 40 mg tablet 40 mg PO QHS cholesterol 02/27/22 [History Last Taken 07/04/22] tamsulosin 0.4 mg capsule 0.4 mg PO DAILY 02/27/22 [History Last Taken 07/04/22] metformin 500 mg tablet 500 mg PO BID diabetes #0 tabs 03/04/22 [Rx Last Taken 07/04/22] ursodiol 250 mg tablet 250 mg PO BID liver fibrosis #180 tabs 04/19/22 [Rx Last Taken 07/04/22] amlodipine 10 mg tablet 10 mg PO DAILY blood pressure 07/04/22 [History Last Taken 07/04/22] aspirin 81 mg tablet,delayed release 81 mg PO DAILY heart health 07/04/22 [History Last Taken 07/04/22] escitalopram oxalate 10 mg tablet 10 mg PO DAILY 07/04/22 [History Last Taken 07/04/22] fluticasone propionate 50 mcg/actuation nasal spray,suspension (Flonase Allergy Relief) 2 spray intranasal DAILY allergies 07/04/22 [History Last Taken 07/03/22] levetiracetam 500 mg tablet 500 mg PO BID seizures 07/04/22 [History Last Taken 07/04/22] loratadine 10 mg capsule 10 mg PO DAILY sinus 07/04/22 [History Last Taken 07/04/22] losartan 25 mg tablet 25 mg PO DAILY 07/04/22 [History Last Taken 07/04/22] omega-3 fatty acids-fish oil 684 mg-1,200 mg capsule,delayed release 2 cap PO DAILY supplement 07/04/22 [History Last Taken 4 Days Ago ~06/30/22] pravastatin 20 mg tablet 20 mg PO DAILY cholesterol 07/04/22 [History Last Taken 07/04/22] Allergy/AdvReac Type Severity Reaction Status Date / Time lisinopril Allergy Angioedema Verified 07/04/22 10:41 cyclobenzaprine AdvReac Severe Skin Verified 07/04/22 10:41 crawling hydrocodone bitartrate AdvReac Itching Verified 07/04/22 10:41 [From Vicodin] hydromorphone [From Dilaudid] AdvReac Itching Verified 07/04/22 10:41 morphine AdvReac Itching Verified 07/04/22 10:41 tramadol AdvReac Itching Verified 07/04/22 10:41 Family History Mother Heart disease Sister Cerebral aneurysm Surgical History History of cholecystectomy (12/2013) History of left heart catheterization (10/31/11) Social History Smoking Status: Former smoker Tobacco: How many years used: 7 Electronic Cigarette Use: not used alcohol intake: current alcohol intake frequency: holidays/special occasions only Alcohol type: beer details: states a couple beers every now on then, does not have daily substance use type: does not use ROS ROS ED ROS Narrative Constitutional: No fever, no chills. HEENT: No sore throat. No neck pain. No loss of vision. No rhinorrhea. Cardiovascular: No chest pain. No palpitations. No pedal edema. Respiratory: No cough, no shortness of breath. Abdominal: Epigastric abdominal pain. Positive nausea. No vomiting. Genitourinary: No dysuria. No hematuria. Musculoskeletal: No myalgias. No arthralgias. Neurologic: No headaches. No dizziness. No lightheadedness. Skin: No rash. No change in color. Psychiatric: No depression. No anxiety. EXAM Physical Exam Const Vital Signs: 07/04/22 10:41 Temperature 97.3 F L Temperature Source Temporal Pulse Rate 109 H Respiratory Rate 18 Blood Pressure 105/86 H Blood Pressure Mean 92 Pulse Ox 96 Oxygen Delivery Method Room Air MDM MDM MDM Narrative Medical decision making narrative: Comprehensive work-up was pursued. CBC shows slightly elevated white count of 11.1 which I think is nonspecific hemoglobin normal at 13.8, platelet count normal at 188. Sodium is slightly low at 135 with a BUN of 11 and a creatinine of 1.43. He has had slightly elevated creatinines in the past but I would might consider this an acute kidney injury given his low sodium along with dehydration. His urinalysis is positive for ketones at 5 but negative for infection. Of most importance given his epigastric pain is his normal lipase of 227. Upon repeat examination, he is comfortable lying on the cot resting in bed, reading a book. 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 He will drink plenty of fluids. Return instructions to the emergency department were reviewed. Disposition is discharged home in stable condition. Lab Data Attestation: I reviewed the patient's lab results. Labs: Laboratory Results - last 24 hr 07/04/22 07/04/22 07/04/22 11:10 11:10 12:50 WBC 11.1 H RBC 4.19 L Hgb 13.8 Hct 38.8 L MCV 92.6 MCH 32.9 H MCHC 35.6 RDW Std Deviation 41.3 RDW Coeff of Armin 12.1 Plt Count 188 MPV 9.5 Immature Gran % (Auto) 0.300 Neut % (Auto) 66.2 Lymph % (Auto) 25.5 [place] % (Auto) 6.7 Eos % (Auto) 0.8 Baso % (Auto) 0.5 Absolute Neuts (auto) 7.3 Absolute Lymphs (auto) 2.83 Nucleated RBC % 0 Sodium 135 L Potassium 3.5 Chloride 98 Carbon Dioxide 27.0 Anion Gap 10 BUN 11 Creatinine 1.43 H Estim Creat Clear Calc 58.85 Est GFR (MDRD) Af Amer 66 Est GFR (MDRD) Non-Af 54 L BUN/Creatinine Ratio 7.7 L Glucose 152 H Calcium 9.2 Total Bilirubin 0.80 AST 14 L ALT 20 Alkaline Phosphatase 71 Total Protein 8.1 Albumin 4.0 Globulin 4.1 Albumin/Globulin Ratio 1.0 Lipase 227 Urine Color Yellow Urine Clarity Sl. Cloudy Urine pH 7.0 Ur Specific [place] 1.010 Urine Protein 30 H Urine Glucose (UA) Normal Urine Ketones 5 H Urine Occult Blood Negative Urine Nitrite Negative Urine Bilirubin Negative Urine Urobilinogen 1 H Ur Leukocyte Esterase 25 H Urine RBC 0 SEEN Urine WBC 0-5 SEEN Ur Squamous Epith Cells 0-5 SEEN Urine Bacteria 2+ Urine Mucus 0 SEEN Discharge Plan Triage Chief Complaint: Abd Pain ED Provider: Alejandro Gandhi Dx/Rx/DC Orders Clinical Impression: Abdominal pain, epigastric, Dehydration, Acute kidney injury Instructions: Acute Kidney Failure Dc, ED Dehydration (Adult), ED Epigastric Pain Uncertain Cause Prescriptions: No Action amitriptyline 25 mg tablet 25 mg PO QHS gabapentin 300 mg capsule 300 mg PO BID nitroglycerin 0.4 MG tablet 0.4 mg sublingual Q5M PRN (Reason: Chest Pain) cholecalciferol (vitamin D3) 5,000 capsule 1 cap PO DAILY insulin glargine 100 UNIT/ML solution 10 unit SQ QHS latanoprost 0.005 % drops 1 drp EACH EYE QHS tamsulosin 0.4 mg Capsule 0.4 mg PO DAILY pantoprazole 40 mg Tablet,Delayed Release (Dr/Ec) 40 mg PO DAILY pravastatin 40 mg Tablet 40 mg PO QHS magnesium oxide 400 mg (241.3 mg magnesium) tablet 400 mg PO BID lactulose 10 gram/15 mL solution 10 g PO DAILY metformin 500 MG tablet 500 mg PO BID Qty: 0 0RF Rx Instructions: Start for tomorrow a.m. aspirin [Aspirin Low-Strength] 81 mg Tablet,Delayed Release (Dr/Ec) 81 mg PO DAILY losartan 25 mg tablet 25 mg PO DAILY pravastatin 20 mg tablet 20 mg PO DAILY fluticasone propionate [Flonase Allergy Relief] 50 mcg/actuation [place],Suspension 2 spray INTRANASAL DAILY Rx Instructions: administer into each nostril escitalopram oxalate 10 mg tablet 10 mg PO DAILY [place] 3 Capsule 2 cap PO DAILY levetiracetam 500 mg tablet 500 mg PO BID amlodipine 10 mg tablet 10 mg PO DAILY loratadine 10 MG capsule 10 mg PO DAILY hydrochlorothiazide 25 mg tablet 25 mg PO DAILY Qty: 30 11RF ursodiol 250 mg tablet 250 mg PO BID Qty: 180 1RF Primary Care Provider: Lobito Maldonado Referrals: Taras Santamaria DO [Med Staff - Active Staff] - 3-5 Days if not improving Lobito Maldonado MD [Primary Care Provider] - 3-5 Days if not improving Disposition Disposition: Home, Self Care
[2022-07-04 11:25] LABS: Absolute Lymphocyte Count 2.83 X10^3/uL (0.83-4.51); Absolute Neutrophil Count 7.3 X10^3/uL (2.0-7.7); Basophil# 0.06 X10^3/uL; Basophil% 0.5 % (0-1); Eosinophil# 0.09 X10^3/uL; Eosinophils% 0.8 % (0-5); Hematocrit 38.8 % (40-54); Hemoglobin 13.8 g/dL (13.0-16.5); Lymphocyte # 2.83 X10^3/ul (0.83-4.51); Lymphocyte % 25.5 % (19-41); Mean Corp Hgb Conc 35.6 g/dL (32-36); Mean Corpuscular Hgb 32.9 pg (27.0-32.0); Mean Corpuscular Volume 92.6 fL (80-94); Mean Platelet Vol. 9.5 fl (6.2-12.0); Monocyte# 0.74 X10^3/uL; Monocyte% 6.7 % (0-10); NRBC Flagged by Analyzer 0 % (0-5); Neutrophil # 7.33 X10^3/uL (2.7-7.7); Neutrophil % 66.2 % (47-70); Platelet Count 188 K/mm3 (150-450); RBC Distribution Width CV 12.1 % (11.6-14.6); RBC Distribution Width SD 41.3 fl (35.1-43.9); Red Blood Count 4.19 M/mm3 (4.6-6.2); White Blood Count 11.1 K/mm3 (4.4-11.0)
[2022-07-04] MEDS: 0.9% Normal Saline 1,000 ML 1000 ML IV (11:31)
[2022-07-04 11:40] LABS: AST(SGOT) 14 U/L (15-37); Alanine Aminotransfer ALT/SGPT 20 U/L (16-61); Alkaline Phosphatase 71 U/L (45-117); Anion Gap 10 (5-15); BUN 11 mg/dL (7-18); BUN/Creat Ratio 7.7 RATIO (10-20); Calcium,Total 9.2 mg/dL (8.5-10.1); Chloride 98 mmol/L (98-107); Creatinine, Serum 1.43 mg/dL (0.70-1.30); EST Glomerular Filtration Rate 54 mL/min (>60); Est Glom Filt Rate - Afr Amer 66 mL/min (>60); Estimated Creatinine Clearance 58.85 ml/min; Globulin 4.1 g/dL (2.2-4.2); Glucose 152 mg/dL (74-106); Lipase 227 U/L (73-393); Potassium 3.5 mmol/L (3.5-5.1); Protein, Total 8.1 g/dL (6.4-8.2); Sodium Level 135 mmol/L (136-145)
[2022-07-04 13:02] LABS: Mucous, Urine 0 SEEN /hpf (<or=2+); Red Blood Cells-Urine 0 SEEN /hpf (0-5)
[2022-07-04 13:12] LABS: Color, Urine Yellow (Yellow); Glucose, Dipstick Normal (Normal); Ketone-Dipstick 5 mg/dl (Negative); Leukocyte Esterase-Dipstick 25 /ul (Negative); Nitrite-Dipstick Negative (Negative); Occult Blood-Urine Negative /ul (Negative); Protein-Dipstick 30 mg/dl (Negative); Urine Bilirubin Dipstick Negative (Negative); Urine Clarity Sl. Cloudy (Clear); Urine Urobilinogen 1 mg/dl (Normal)
[2022-07-04 13:23] LABS: Bacteria 2+ /hpf (None Seen); Squamous Epithelial Cells - UA 0-5 SEEN /hpf (0-5); White Blood Cells 0-5 SEEN /hpf (0-5)
[2022-07-04 14:29] VITALS: BP 110/65; PULSE 78; RESP 18; O2SAT 100
== END 2022-07-04 14:30 | disposition home or self-care (01) ==
PROVIDERS: Emergency Provider Emergency Medicine; PCP Internal Medicine; Visit Provider Emergency Medicine
DX: N17.9 Acute kidney failure, unspecified (principal); E11.42 Type 2 diabetes mellitus with diabetic polyneuropathy; Z79.4 Long term (current) use of insulin; R10.13 Epigastric pain; E86.0 Dehydration; Z87.891 Personal history of nicotine dependence; E78.5 Hyperlipidemia, unspecified; I10 Essential (primary) hypertension; F41.9 Anxiety disorder, unspecified; F32.A Depression, unspecified; Z79.84 Long term (current) use of oral hypoglycemic drugs; Z79.899 Other long term (current) drug therapy
CPT/HCPCS: 80053; 81001; 83690; 85025; 96360; 99283; A4216

== ENCOUNTER 2022-07-13 01:16 | Inpatient (IN) | payer MEDICARE, MEDICAID, SELFPAY ==
[2022-07-13] VITALS (8 sets, daily range): BP systolic 126–155; BP diastolic 79–99; PULSE 86–101; RESP 15–18; TEMP 36.3–37.1; O2SAT 95–98; BMI 27.7; BMI 27.1
[2022-07-13 02:10] LABS: Absolute Lymphocyte Count 3.57 X10^3/uL (0.83-4.51); Absolute Neutrophil Count 6.4 X10^3/uL (2.0-7.7); Basophil# 0.06 X10^3/uL; Basophil% 0.5 % (0-1); Eosinophil# 0.24 X10^3/uL; Eosinophils% 2.2 % (0-5); Hematocrit 37.5 % (40-54); Hemoglobin 13.2 g/dL (13.0-16.5); Lymphocyte # 3.57 X10^3/ul (0.83-4.51); Lymphocyte % 32.3 % (19-41); Mean Corp Hgb Conc 35.2 g/dL (32-36); Mean Platelet Vol. 9.3 fl (6.2-12.0); Monocyte# 0.71 X10^3/uL; Monocyte% 6.4 % (0-10); NRBC Flagged by Analyzer 0 % (0-5); Neutrophil # 6.43 X10^3/uL (2.7-7.7); Neutrophil % 58.1 % (47-70); Platelet Count 214 K/mm3 (150-450); RBC Distribution Width CV 12.2 % (11.6-14.6); RBC Distribution Width SD 40.7 fl (35.1-43.9); Red Blood Count 4.12 M/mm3 (4.6-6.2); White Blood Count 11.1 K/mm3 (4.4-11.0)
[2022-07-13 02:28] LABS: AST(SGOT) 8 U/L (15-37); Alanine Aminotransfer ALT/SGPT 21 U/L (16-61); Albumin, Serum 4.1 g/dL (3.2-5.0); Alkaline Phosphatase 72 U/L (45-117); Anion Gap 12 (5-15); BUN 11 mg/dL (7-18); BUN/Creat Ratio 12.1 RATIO (10-20); Bilirubin, Direct 0.14 mg/dL (0.00-0.30); Calcium,Total 9.7 mg/dL (8.5-10.1); Chloride 100 mmol/L (98-107); Creatinine, Serum 0.91 mg/dL (0.70-1.30); EST Glomerular Filtration Rate 92 mL/min (>60); Est Glom Filt Rate - Afr Amer 111 mL/min (>60); Estimated Creatinine Clearance 92.48 ml/min; Glucose 242 mg/dL (74-106); Lipase 828 U/L (73-393); Potassium 3.4 mmol/L (3.5-5.1); Protein, Total 8.1 g/dL (6.4-8.2); Sodium Level 134 mmol/L (136-145)
[2022-07-13] MEDS: 0.9% Normal Saline 1,000 ML 999 ML IV (02:32)
[2022-07-13] MEDS: Mag Hydrox/Al Hydrox/Simeth 30 ML UDC PO (02:32)
[2022-07-13] MEDS: Famotidine 200 MG/20 ML MDV 20 MG in 0.9% Normal Saline (Pres. free 8 ML 300 MG IV (02:32)
--- NOTE | 2022-07-13 02:32 | ED.RN ---
All medications verified with Noelle GUSMAN due to computers being updated.
--- NOTE | 2022-07-13 02:35 | CT_ITS ---
STUDY: CT ABDOMEN AND PELVIS WITH CONTRAST REASON FOR EXAM: Male, 57 years old. Abd pain / ? Pancreatitis RADIATION DOSAGE (If Supplied By Facility): CTDIvol = ( ) mGy, DLP = ( 913.4 ) mGycm TECHNIQUE: Transaxial images were obtained from the dome of the diaphragm to the symphysis pubis without oral contrast. IV 100mL Isovue-370 was administered. Sagittal and coronal images were reconstructed. Individualized dose optimization techniques were used for this CT. COMPARISON: 04/06/2022 FINDINGS: The visualized lung bases are unremarkable. The visualized portions of the heart are within normal limits. Normal liver. Normal gallbladder and extrahepatic biliary system. Normal spleen. There is inflammatory stranding about the pancreatic head and neck. Normal bilateral adrenal glands. Normal right kidney. Normal left kidney. Normal visualized stomach. Normal small intestine. Normal colon. The appendix is visualized and appears normal. Normal abdominal aorta. Normal inferior vena cava. Normal retroperitoneum. Normal urinary bladder. There is enlargement of the prostate gland. Normal abdominal wall. Normal thoracolumbar vertebral alignment. CT/Abdomen/Pelvis W IV Cont ONLY IMPRESSION: Inflammatory stranding about the pancreatic head and neck compatible with suspected acute pancreatitis. Electronically Signed: Jere Mera MD at 3:22 EDT ,
[2022-07-13] MEDS: DiphenhydrAMINE 50 MG/ML Syringe 12.5 MG IV (03:39)
[2022-07-13] MEDS: Ondansetron 4 MG/2 ML Vial IV ×2 (03:39→11:43)
[2022-07-13] MEDS: HYDROmorphone 1 MG/ML Syringe IV ×7 (03:40→21:18)
--- NOTE | 2022-07-13 04:48 | HP.PCM.HOS_ITS ---
HPI - General General Date of Admission: 07/13/22 Date of Service: 07/13/22 Chief Complaint: epigastric pain HPI Narrative BRANDON WELLER, is a 57 M with a significant history of alcoholism; seizure disorder; diabetes; and recurrent pancreatitis who presents to the emergency department with excruciating epigastric pain that radiated to his back. His pain started after eating lasagna and sleeping. His pain is sharp. The pain improved with Dilaudid that he was given at the emergency department. The pain worsened with GI cocktail that he was given at the emergency department. The pain is persistent. Of note patient reports cutting back on his alcohol habits. Of note now he drinks about 2 beers weekly. He does not drink more than 1 beer per day. Last time he drank was a night before presentation. [facility] Medical History (Updated 07/13/22 @ 06:[address] 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 Pancreatitis Polyneuropathy PSA elevation PTSD (post-traumatic stress disorder) Seizure disorder TIA (transient ischemic attack) Type 2 diabetes mellitus Vision loss of left eye Vision loss of right eye Home Medications nitroglycerin 0.4 mg sublingual tablet 0.4 mg sublingual Q5M PRN Chest Pain 07/15/13 [History Last Taken 08/22/15] amitriptyline 25 mg tablet 25 mg PO QHS depression 07/03/18 [History Last Taken 07/12/22] cholecalciferol (vitamin D3) 125 mcg (5,000 unit) capsule 1 cap PO DAILY supplement 11/09/18 [History Last Taken 07/12/22] hydrochlorothiazide 25 mg tablet 25 mg PO DAILY blood pressure/heart #30 tabs 06/05/20 [Rx Last Taken 07/12/22] gabapentin 300 mg capsule 300 mg PO BID nerve pain 10/06/20 [History Last Taken 07/12/22] insulin glargine 100 unit/mL subcutaneous solution 10 unit SQ QHS diabetes 12/30/20 [History Last Taken 07/12/22] latanoprost 0.005 % eye drops 1 drp EACH EYE QHS glucoma 12/07/21 [History Last Taken 07/12/22] lactulose 10 gram/15 mL oral solution 10 g PO DAILY constipation 02/27/22 [History Last Taken 07/12/22] magnesium oxide 400 mg (241.3 mg magnesium) tablet 400 mg PO BID supplement 02/27/22 [History Last Taken 07/12/22] pantoprazole 40 mg tablet,delayed release 40 mg PO DAILY gerd 02/27/22 [History Last Taken 07/12/22] pravastatin 40 mg tablet 60 mg PO QHS cholesterol 02/27/22 [History Last Taken 07/12/22] tamsulosin 0.4 mg capsule 0.4 mg PO DAILY BPH 02/27/22 [History Last Taken 07/12/22] metformin 500 mg tablet 500 mg PO BID diabetes #0 tabs 03/04/22 [Rx Last Taken 07/12/22] ursodiol 250 mg tablet 250 mg PO BID liver fibrosis #180 tabs 04/19/22 [Rx Last Taken 07/12/22] amlodipine 10 mg tablet 10 mg PO DAILY blood pressure 07/04/22 [History Last Taken 07/12/22] aspirin 81 mg tablet,delayed release 81 mg PO DAILY heart health 07/04/22 [History Last Taken 07/12/22] escitalopram oxalate 10 mg tablet 10 mg PO DAILY depression 07/04/22 [History Last Taken 07/12/22] fluticasone propionate 50 mcg/actuation nasal spray,suspension (Flonase Allergy Relief) 2 spray intranasal DAILY allergies 07/04/22 [History Last Taken 07/03/22] levetiracetam 500 mg tablet 500 mg PO BID seizures 07/04/22 [History Last Taken 07/12/22] loratadine 10 mg capsule 10 mg PO DAILY sinus 07/04/22 [History Last Taken 07/12/22] losartan 25 mg tablet 25 mg PO DAILY blood pressure 07/04/22 [History Last Taken 07/12/22] omega-3 fatty acids-fish oil 684 mg-1,200 mg capsule,delayed release 2 cap PO DAILY supplement 07/04/22 [History Last Taken 07/12/22] Allergy/AdvReac Type Severity Reaction Status Date / Time lisinopril Allergy Angioedema Verified 07/13/22 01:21 cyclobenzaprine AdvReac Severe Skin Verified 07/13/22 01:21 crawling hydrocodone bitartrate AdvReac Itching Verified 07/13/22 01:21 [From Vicodin] hydromorphone [From Dilaudid] AdvReac Itching Verified 07/13/22 01:21 morphine AdvReac Itching Verified 07/13/22 01:21 tramadol AdvReac Itching Verified 07/13/22 01:21 Family History Mother Heart disease Sister Cerebral aneurysm Surgical History History of cholecystectomy (12/2013) History of left heart catheterization (10/31/11) Social History Smoking Status: Former smoker Tobacco: How many years used: 7 Electronic Cigarette Use: not used alcohol intake: current alcohol intake frequency: holidays/special occasions only Alcohol type: beer details: states a couple beers every now on then, does not have daily substance use type: does not use ROS ROS Narrative Pertinent positives and pertinent negatives as noted in HPI. All other systems were reviewed and are negative Vital Signs Vital Signs Vital Signs: 07/13/22 01:22 07/13/22 03:42 Temperature 98.7 F Temperature Source Temporal Pulse Rate 100 101 H Respiratory Rate 15 15 Blood Pressure 155/97 H 150/93 H Blood Pressure Mean 116 112 Pulse Ox 98 95 Oxygen Delivery Method Room Air Room Air Weight Weight: 87.7 kg Body Mass Index (BMI) 27.7 Physical Exam Narrative Physical exam: General: Well-nourished, well-developed. Head: Normocephalic, atraumatic, no tenderness Eyes: Vision is grossly intact. EOMI ENT, no trauma, moist mucous membranes, no rhinorrhea Neck: Nontender, full range of motion, no spinal tenderness, deformities, step- off CVS: Regular rate and rhythm. S1-S2 present. No murmur, gallop or rub. Respiratory : clear to auscultation bilaterally, chest wall nontender, no wheezing Abdomen: Soft, tender epigastric , nondistended, normal bowel sounds, no masses : Deferred Back: Nontender, no CVA tenderness, no midline spinal tenderness, deformities, step-offs Extremities: Nontender full range of motion, no trauma Skin: Normal color, no trauma, abrasions Neuro: Alert, oriented, cranial nerves II through XII grossly intact. Psychiatry: Normal mood. Normal affect. Not depressed. Not anxious. Results Lab / Micro Data Result Diagrams: 07/13/22 01:55 07/13/22 01:55 Labs: Laboratory Results - last 24 hr 07/13/22 01:55: WBC 11.1 H, RBC 4.12 L, Hgb 13.2, Hct 37.5 L, MCV 91.0, MCH 32.0, MCHC 35.2, RDW Std Deviation 40.7, RDW Coeff of Armin 12.2, Plt Count 214, MPV 9.3, Immature Gran % (Auto) 0.500, Neut % (Auto) 58.1, Lymph % (Auto) 32.3, [place] % (Auto) 6.4, Eos % (Auto) 2.2, Baso % (Auto) 0.5, Absolute Neuts (auto) 6.4, Absolute Lymphs (auto) 3.57, Nucleated RBC % 0 07/13/22 01:55: Sodium 134 L, Potassium 3.4 L, Chloride 100, Carbon Dioxide 22.0, Anion Gap 12, BUN 11, Creatinine 0.91, Estim Creat Clear Calc 92.48, Est GFR (MDRD) Af Amer 111, Est GFR (MDRD) Non-Af 92, BUN/Creatinine Ratio 12.1, Glucose 242 H, Calcium 9.7, Total Bilirubin 0.40, Direct Bilirubin 0.14, AST 8 L , ALT 21, Alkaline Phosphatase 72, Total Protein 8.1, Albumin 4.1, Globulin 4.0, Lipase 828 H Radiology Impression Abdomen/Pelvis CT 07/13/22 02:35 IMPRESSION: Inflammatory stranding about the pancreatic head and neck compatible with suspected acute pancreatitis. Electronically Signed: Jere eMra MD at 3:22 EDT , Assessment & Plan Assessment/Plan (1) Acute pancreatitis: QUALIFIERS: Acute pancreatitis complication: unspecified Pancreatitis type: unspecified pancreatitis type Qualified Code(s): K85.90 - Acute pancreatitis without necrosis or infection, unspecified (2) Diabetes: PLAN: Plan Acute recurrent pancreatitis Characteristic of pain: Epigastric pain radiated to back. Lipase level: 828 on presentation. Review of record showed in the past patient had a lipase level as high as 5830. Hematocrit: 13.2 BUN: 12.1 Lactated Ringer's at 250 ml/hr Pain regimen: Received Dilaudid at emergency department. Diludid Ordered. Antiemetics: IV zofran ordered Clear liquid diet ordered. Triglyceride level on 03/25/2022 was 107. Patient has had cholecystectomy. Calcium level 9.7. Ursodiol continued. Diabetes mellitus Patient with hyperglycemia on presentation Acute correction scale insulin ordered Monitor Accu-Cheks Correction scale insulin ordered. Hold metformin. Hypertension Blood pressure is not within goal Home blood pressure medication continued. As needed hydralazine ordered. Trend blood pressure and adjust blood pressure medications. History of seizures Stable Keppra continued. DVT prophylaxis: SCDs ordered Charges/Coding Visit Charges OBSV E&M: 01334 Initial observation care L3
[2022-07-13] MEDS: 0.9% Saline Lock 10 ML Syringe IV ×2 (06:14→21:20)
[2022-07-13] MEDS: Lactated Ringers 1,000 ML 250 ML IV ×5 (06:14→22:07)
[2022-07-13] MEDS: Insulin Lispro 100 UNIT/ML INSULN.PEN SC ×4 (06:26→21:14)
[2022-07-13 06:50] LABS: Bedside Glucose 185 mg/dL (74-106)
--- NOTE | 2022-07-13 07:56 | PCM.PN.HOSP ---
Subjective Subjective DOS: 07/13/2022 CC: Abdominal pain Mr. Ochoa reports his abdominal pain is actually worse so far than it was yesterday, just received pain medication prior to exam. Still has significant nausea but no emesis yet today, has not tried tolerating food yet but reports no appetite, is going to try sips of water to start with. Denies chest pain or changes in his breathing. Does report passing gas, no bowel movement yet. No changes in urination. Just feels generally unwell this morning, fluids still running. No other complaints Objective Data Objective Data Vital Signs: Vital Signs Temp Pulse Resp BP Pulse Ox O2 Del Method 97.6 F L 86 18 126/79 H 95 Room Air 07/13/22 06:03 07/13/22 06:03 07/13/22 06:03 07/13/22 06:03 07/13/22 07:53 07/13/22 07:53 Oxygen Delivery Method Room Air Weight: 85.9 kg Body Mass Index (BMI) 27.1 Intake & Output: Intake and Output for Last 24 Hours 07/11/22 07/12/22 07/13/22 23:59 23:59 23:59 Intake Total 1010 / 1010 Balance 1010 / 1010 Lab / Micro Data Result Diagrams: 07/13/22 01:55 07/13/22 01:55 Labs: Laboratory Results - last 24 hr 07/13/22 01:55: WBC 11.1 H, RBC 4.12 L, Hgb 13.2, Hct 37.5 L, MCV 91.0, MCH 32.0, MCHC 35.2, RDW Std Deviation 40.7, RDW Coeff of Armin 12.2, Plt Count 214, MPV 9.3, Immature Gran % (Auto) 0.500, Neut % (Auto) 58.1, Lymph % (Auto) 32.3, [place] % (Auto) 6.4, Eos % (Auto) 2.2, Baso % (Auto) 0.5, Absolute Neuts (auto) 6.4, Absolute Lymphs (auto) 3.57, Nucleated RBC % 0 07/13/22 01:55: Sodium 134 L, Potassium 3.4 L, Chloride 100, Carbon Dioxide 22.0, Anion Gap 12, BUN 11, Creatinine 0.91, Estim Creat Clear Calc 92.48, Est GFR (MDRD) Af Amer 111, Est GFR (MDRD) Non-Af 92, BUN/Creatinine Ratio 12.1, Glucose 242 H, Calcium 9.7, Total Bilirubin 0.40, Direct Bilirubin 0.14, AST 8 L, ALT 21, Alkaline Phosphatase 72, Total Protein 8.1, Albumin 4.1, Globulin 4.0, Lipase 828 H 07/13/22 06:24: POC Glucose 185 H Radiography Diagnostic Testing: Radiology Impression Abdomen/Pelvis CT 07/13/22 02:35 IMPRESSION: Inflammatory stranding about the pancreatic head and neck compatible with suspected acute pancreatitis. Electronically Signed: Jere Mera MD at 3:22 EDT , Physical Exam Const alert Constitutional Narrative: Oriented HEENT normocephalic and head/scalp atraumatic Eyes Eyes Narrative: EOM grossly intact, anicteric Neck supple Resp normal respiratory effort and clear to auscultation bilaterally Cardio regular rate and regular rhythm GI GI Narrative: Diffusely tender to palpation, no rebound guarding or rigidity Extremity Extremity Narrative: No edema appreciated Neuro moves all extremities Neuro Narrative: No overt focal deficits appreciated Psych Psych Narrative: Cooperative Assessment & Plan Assessment/Plan (1) Acute pancreatitis: QUALIFIERS: Acute pancreatitis complication: unspecified Pancreatitis type: unspecified pancreatitis type Qualified Code(s): K85.90 - Acute pancreatitis without necrosis or infection, unspecified (2) Diabetes: PLAN: Plan #Acute recurrent pancreatitis Had lipase of 822 on presentation and epigastric pain radiating to his back consistent with acute pancreatitis, CT obtained 07/13/2022 additionally reported inflammatory stranding about the pancreatic head and neck compatible with suspected acute pancreatitis Has had pancreatitis in the past with lipase as high as 5830 Hematocrit was 13.2 with BUN 12.1 Has been put on LR at 250 mL/h with Dilaudid for pain management IV Zofran Clear liquid diet will advance as tolerated Last triglyceride level 03/25/2022 was 107 He has had a cholecystectomy in the past #Alcohol use disorder Has been attempting to cut back, reported on admission drinking 2 beers weekly and does not think he drinks more than 1 beer per day, last drink was night of 07/11 We will start thiamine and folic acid supplementation Counseled on cessation and its importance #Type 2 diabetes mellitus Sliding scale insulin, metformin held On 10 units of insulin glargine at bedtime #Hypertension Continue home blood pressure medications, amlodipine 10 mg, losartan 25 mg, hydrochlorothiazide 25 mg hydralazine as needed has been ordered #AGA Appear to have an AGA on admission with creatinine 1.43, improved to 0.91 this a.m. which appears to be close to baseline Has been on fluids #History of seizure disorder Stable, continued on Keppra #DVT prophylaxis: SCDs ordered Charges/Coding Visit Charges Inpatient E&M: 65053 Subs Hosp L2
--- NOTE | 2022-07-13 08:13 | EDS_ITS ---
HPI History of Present Illness Chief Complaint: Abd Pain Narrative Narrative: Patient is a 57-year-old male with past medical history of alcohol abuse and pancreatitis. He also has hypertension and acid reflux. He states yesterday he had 2 pieces of lasagna covered in red sauce. He states that after his second helping he noticed pain in the midepigastric region. He states he took some medication to see if this would help and there was no improvement and with concern for repeat inflammation to his pancreas he presents for evaluation. He states that he has not done any recent binge drinking and he states he did have 1 beer yesterday. [facility] Medical History (Updated 07/13/22 @ 08:[address] Phillip Aguiar, DO) Acute pancreatitis Alcohol abuse Anxiety and depression Cancer Cerebrovascular disease Chronic hip pain Chronic pain Constipation Diabetes Diabetes mellitus type 2 in nonobese Essential (primary) hypertension Family history of cerebral aneurysm Former tobacco use Gastric ulcer GERD (gastroesophageal reflux disease) GERD (gastroesophageal reflux disease) GI bleed Glaucoma Hyperlipidemia Neck pain Other generalized epilepsy and epileptic syndromes, not intractable, without status epilepticus Pancreatitis Polyneuropathy PSA elevation PTSD (post-traumatic stress disorder) Seizure disorder TIA (transient ischemic attack) Type 2 diabetes mellitus Vision loss of left eye Vision loss of right eye Home Medications nitroglycerin 0.4 mg sublingual tablet 0.4 mg sublingual Q5M PRN Chest Pain 07/15/13 [History Last Taken 08/22/15] amitriptyline 25 mg tablet 25 mg PO QHS depression 07/03/18 [History Last Taken 07/12/22] cholecalciferol (vitamin D3) 125 mcg (5,000 unit) capsule 1 cap PO DAILY supplement 11/09/18 [History Last Taken 07/12/22] hydrochlorothiazide 25 mg tablet 25 mg PO DAILY blood pressure/heart #30 tabs 06/05/20 [Rx Last Taken 07/12/22] gabapentin 300 mg capsule 300 mg PO BID nerve pain 10/06/20 [History Last Taken 07/12/22] insulin glargine 100 unit/mL subcutaneous solution 10 unit SQ QHS diabetes 12/30/20 [History Last Taken 07/12/22] latanoprost 0.005 % eye drops 1 drp EACH EYE QHS glucoma 12/07/21 [History Last Taken 07/12/22] lactulose 10 gram/15 mL oral solution 10 g PO DAILY constipation 02/27/22 [History Last Taken 07/12/22] magnesium oxide 400 mg (241.3 mg magnesium) tablet 400 mg PO BID supplement 02/27/22 [History Last Taken 07/12/22] pantoprazole 40 mg tablet,delayed release 40 mg PO DAILY gerd 02/27/22 [History Last Taken 07/12/22] pravastatin 40 mg tablet 60 mg PO QHS cholesterol 02/27/22 [History Last Taken 07/12/22] tamsulosin 0.4 mg capsule 0.4 mg PO DAILY BPH 02/27/22 [History Last Taken 07/12/22] metformin 500 mg tablet 500 mg PO BID diabetes #0 tabs 03/04/22 [Rx Last Taken 07/12/22] ursodiol 250 mg tablet 250 mg PO BID liver fibrosis #180 tabs 04/19/22 [Rx Last Taken 07/12/22] amlodipine 10 mg tablet 10 mg PO DAILY blood pressure 07/04/22 [History Last Taken 07/12/22] aspirin 81 mg tablet,delayed release 81 mg PO DAILY heart health 07/04/22 [History Last Taken 07/12/22] escitalopram oxalate 10 mg tablet 10 mg PO DAILY depression 07/04/22 [History Last Taken 07/12/22] fluticasone propionate 50 mcg/actuation nasal spray,suspension (Flonase Allergy Relief) 2 spray intranasal DAILY allergies 07/04/22 [History Last Taken 07/03/22] levetiracetam 500 mg tablet 500 mg PO BID seizures 07/04/22 [History Last Taken 07/12/22] loratadine 10 mg capsule 10 mg PO DAILY sinus 07/04/22 [History Last Taken 07/12/22] losartan 25 mg tablet 25 mg PO DAILY blood pressure 07/04/22 [History Last Taken 07/12/22] omega-3 fatty acids-fish oil 684 mg-1,200 mg capsule,delayed release 2 cap PO DAILY supplement 07/04/22 [History Last Taken 07/12/22] Allergy/AdvReac Type Severity Reaction Status Date / Time lisinopril Allergy Angioedema Verified 07/13/22 01:21 cyclobenzaprine AdvReac Severe Skin Verified 07/13/22 01:21 crawling hydrocodone bitartrate AdvReac Itching Verified 07/13/22 01:21 [From Vicodin] hydromorphone [From Dilaudid] AdvReac Itching Verified 07/13/22 01:21 morphine AdvReac Itching Verified 07/13/22 01:21 tramadol AdvReac Itching Verified 07/13/22 01:21 Family History Mother Heart disease Sister Cerebral aneurysm Surgical History History of cholecystectomy (12/2013) History of left heart catheterization (10/31/11) Social History Smoking Status: Former smoker Tobacco: How many years used: 7 Electronic Cigarette Use: not used alcohol intake: current alcohol intake frequency: holidays/special occasions only Alcohol type: beer details: states a couple beers every now on then, does not have daily substance use type: does not use ROS ROS ED Constitutional Constitutional ED: Denies chills or fever(s) ENT ENT ED: Denies sore throat Cardiovascular Cardiovascular: Denies chest pain Respiratory/Chest Respiratory/Chest: Denies cough or dyspnea Gastrointestinal Gastrointestinal: Reports abdominal pain and nausea; Denies diarrhea or vomiting Genitourinary Genitourinary ED: Denies dysuria Musculoskeletal Musculoskeletal: Denies myalgias Integumentary Denies rash Neurologic Neurologic: Denies headache(s) Hematologic/Lymphatic Hematologic/Lymphatic: Denies easy bleeding or easy bruising EXAM Physical Exam Const Vital Signs: 07/13/22 01:22 07/13/22 03:42 07/13/22 04:38 Temperature 98.7 F 97.9 F Temperature Source Temporal Temporal Pulse Rate 100 101 H 101 H Respiratory Rate 15 15 15 Blood Pressure 155/97 H 150/93 H 150/93 H Blood Pressure Mean 116 112 112 Pulse Ox 98 95 95 Oxygen Delivery Method Room Air Room Air Room Air Positive well nourished and well developed General Appearance ED: well developed HEENT Reports moist mucous membranes Eyes PERRL and EOMs intact bilaterally General Eye ED: Negative for scleral icterus Neck supple Resp normal respiratory effort and clear to auscultation bilaterally Cardio regular rate and regular rhythm Rate: other Other Details: Radial pulses are plus 2 out of 4 bilaterally are equal and symmetric GI non-distended GI Narrative: Abdomen is soft and nondistended with normoactive bowel sounds. There is pain on palpation in the midepigastric region without voluntary guarding or rigidity. No pulsatile mass Auscultation: normoactive bowel sounds Palpation: soft Extremity normal to inspection Neuro oriented x3 and CN's II-XII intact bilaterally Sensorium / Orientation: alert Psych mental status grossly normal Skin no rashes or lesions noted General Skin Exam: Negative for jaundice MDM MDM MDM Narrative Medical decision making narrative: Patient presented to the ER mildly hypertensive but with his history of this and his pain this is to be expected. Otherwise vitals are stable. With the pain in the midepigastric region after eating possibly red sauce there is concern this could just be worsening of his acid reflux but because of his past history of pancreatitis a basic work-up was obtained. Patient's lipase is elevated at 828 consistent with acute pancreatitis so CT of the abdomen and pelvis was ordered. This showed inflammation around the pancreas consistent with acute pancreatitis. The patient was given IV fluids and pain medication had improvement of symptoms but based on the inflammation he will be kept in the hospital for further care Lab Data Attestation: I reviewed the patient's lab results. Labs: Laboratory Results - last 24 hr 07/13/22 07/13/22 01:55 01:55 WBC 11.1 H RBC 4.12 L Hgb 13.2 Hct 37.5 L MCV 91.0 MCH 32.0 MCHC 35.2 RDW Std Deviation 40.7 RDW Coeff of Armin 12.2 Plt Count 214 MPV 9.3 Immature Gran % (Auto) 0.500 Neut % (Auto) 58.1 Lymph % (Auto) 32.3 [place] % (Auto) 6.4 Eos % (Auto) 2.2 Baso % (Auto) 0.5 Absolute Neuts (auto) 6.4 Absolute Lymphs (auto) 3.57 Nucleated RBC % 0 Sodium 134 L Potassium 3.4 L Chloride 100 Carbon Dioxide 22.0 Anion Gap 12 BUN 11 Creatinine 0.91 Estim Creat Clear Calc 92.48 Est GFR (MDRD) Af Amer 111 Est GFR (MDRD) Non-Af 92 BUN/Creatinine Ratio 12.1 Glucose 242 H Calcium 9.7 Total Bilirubin 0.40 Direct Bilirubin 0.14 AST 8 L ALT 21 Alkaline Phosphatase 72 Total Protein 8.1 Albumin 4.1 Globulin 4.0 Lipase 828 H Radiography Diagnostic Testing: Clinical Impression(s) from Imaging Studies Abdomen/Pelvis CT 07/13/22 02:35 IMPRESSION: Inflammatory stranding about the pancreatic head and neck compatible with suspected acute pancreatitis. Electronically Signed: Jere Mera MD at 3:22 EDT , Discharge Plan Dx/Rx/DC Orders Clinical Impression: Pancreatitis, Essential (primary) hypertension, GERD (gastroesophageal reflux disease) Disposition Disposition: Acute Care Hospital [facility] Discharge Date/Time: 07/13/22 05:50
[2022-07-13] MEDS: Potassium Chloride Oral Tablet 20 MEQ 40 MEQ PO (08:47)
[2022-07-13] MEDS: Folic Acid 1 MG Tablet PO (08:48)
[2022-07-13] MEDS: Cyanocobalamin 500 MCG Tablet 1000 MCG PO (08:48)
[2022-07-13] MEDS: Magnesium Chloride 64 MG Delay Rel.Tablet 128 MG PO ×2 (08:49→21:18)
[2022-07-13] MEDS: Ursodiol 250 MG Tablet PO ×2 (08:49→21:18)
[2022-07-13] MEDS: Cholecalciferol (Vit D3) 125 MCG CAPSULE (5,000 UNITS) PO (08:50)
[2022-07-13] MEDS: Tamsulosin HCl 0.4 MG Capsule PO (08:50)
[2022-07-13] MEDS: Losartan Potassium 25 MG Tablet PO (08:50)
[2022-07-13] MEDS: Aspirin E.C. 81 MG Tablet PO (08:50)
[2022-07-13] MEDS: Pantoprazole Sodium 40 MG Tablet PO (08:50)
[2022-07-13] MEDS: hydroCHLOROthiazide 25 MG Tablet PO (08:50)
[2022-07-13] MEDS: amLODIPine 10 MG Tablet PO (08:50)
[2022-07-13] MEDS: Lactulose 20 GM/30 ML UDC 10 GM PO (08:50)
[2022-07-13] MEDS: Loratadine 10 MG Tablet PO (08:51)
[2022-07-13] MEDS: Fluticasone 0.05% 1 SPRAY NASAL.SRY 2 SPRAY NASAL (08:51)
[2022-07-13] MEDS: levETIRAcetam 500 MG Tablet PO ×2 (08:51→21:20)
[2022-07-13] MEDS: Escitalopram Oxalate 10 MG Tablet PO (08:52)
[2022-07-13] MEDS: FLU VACC QS2022-23(6MOS UP)/PF 60 MCG/0.5 ML SYRINGE IM (08:52)
[2022-07-13] MEDS: Gabapentin 300 MG Capsule PO ×2 (08:55→21:19)
[2022-07-13] MEDS: Thiamine Hydrochloride 200 MG/2 ML Vial 100 MG IM (09:00)
[2022-07-13 12:05] LABS: Bedside Glucose 162 mg/dL (74-106)
[2022-07-13] MEDS: DiphenhydrAMINE 50 MG/ML Syringe 25 MG IV ×2 (16:12→22:19)
[2022-07-13 16:36] LABS: Bedside Glucose 159 mg/dL (74-106)
[2022-07-13] MEDS: Insulin Glargine-YFGN 100 UNIT/ML Pen 10 UNIT SC (21:16)
[2022-07-13] MEDS: Amitriptyline 25 MG Tablet PO (21:18)
[2022-07-13] MEDS: Pravastatin 20 MG Tablet 60 MG PO (21:19)
[2022-07-13] MEDS: Latanoprost 0.005% 1 Bottle 1 DRP EACH EYE (21:19)
[2022-07-13 21:45] LABS: Bedside Glucose 167 mg/dL (74-106)
[2022-07-14 02:10] VITALS: BP 147/95; PULSE 89; RESP 16; TEMP 37; O2SAT 93
[2022-07-14] MEDS: Lactated Ringers 1,000 ML 250 ML IV ×2 (02:21→06:21)
[2022-07-14 02:35] VITALS: BP 148/98; PULSE 93; RESP 16; TEMP 36.8; O2SAT 96
[2022-07-14] MEDS: DiphenhydrAMINE 50 MG/ML Syringe 25 MG IV ×3 (06:26→18:32)
[2022-07-14] MEDS: HYDROmorphone 1 MG/ML Syringe IV ×4 (06:26→20:03)
[2022-07-14] MEDS: Insulin Lispro 100 UNIT/ML INSULN.PEN SC (06:32)
[2022-07-14 06:38] LABS: Absolute Lymphocyte Count 1.17 X10^3/uL (0.83-4.51); Basophil# 0.02 X10^3/uL; Basophil% 0.1 % (0-1); Eosinophil# 0.02 X10^3/uL; Eosinophils% 0.1 % (0-5); Hematocrit 35.9 % (40-54); Hemoglobin 12.8 g/dL (13.0-16.5); Lymphocyte # 1.17 X10^3/ul (0.83-4.51); Lymphocyte % 7.8 % (19-41); Mean Corp Hgb Conc 35.7 g/dL (32-36); Mean Corpuscular Hgb 32.2 pg (27.0-32.0); Mean Corpuscular Volume 90.4 fL (80-94); Mean Platelet Vol. 9.5 fl (6.2-12.0); Monocyte# 0.79 X10^3/uL; Monocyte% 5.3 % (0-10); NRBC Flagged by Analyzer 0 % (0-5); Neutrophil # 12.96 X10^3/uL (2.7-7.7); Neutrophil % 86.3 % (47-70); Platelet Count 166 K/mm3 (150-450); RBC Distribution Width CV 12.2 % (11.6-14.6); RBC Distribution Width SD 40.4 fl (35.1-43.9); Red Blood Count 3.97 M/mm3 (4.6-6.2)
[2022-07-14 06:56] LABS: Bedside Glucose 174 mg/dL (74-106)
[2022-07-14 07:04] LABS: Anion Gap 7 (5-15); BUN 6 mg/dL (7-18); BUN/Creat Ratio 8.1 RATIO (10-20); Calcium,Total 8.9 mg/dL (8.5-10.1); Chloride 95 mmol/L (98-107); Creatinine, Serum 0.74 mg/dL (0.70-1.30); EST Glomerular Filtration Rate 116 mL/min (>60); Est Glom Filt Rate - Afr Amer 141 mL/min (>60); Estimated Creatinine Clearance 113.72 ml/min; Glucose 160 mg/dL (74-106); Potassium 3.3 mmol/L (3.5-5.1); Sodium Level 128 mmol/L (136-145)
--- NOTE | 2022-07-14 07:26 | PCM.PN.HOSP ---
Subjective Subjective DOS: 07/14/2022 CC: Abdominal pain Reports continued abdominal pain, is helpful when he takes the pain medication but it persists. He reports he attempted to eat yesterday but that it went badly and he has remained nauseous with poor appetite. Does report he is passing gas though no bowel movement. Reports with his urination sometimes it takes a second to get going and then there are no problems. He does endorse peripheral neuropathy which is chronic but bothering him significantly right now he takes gabapentin for this at home but reports only mild relief. Denies chest pain or shortness of breath No further complaints this morning Objective Data Objective Data Vital Signs: Vital Signs Temp Pulse Resp BP Pulse Ox O2 Del Method 98.6 F 89 16 147/95 H 93 Room Air 07/14/22 02:10 07/14/22 02:10 07/14/22 02:10 07/14/22 02:10 07/14/22 02:10 07/14/22 02:10 Oxygen Delivery Method Room Air Weight: 85.9 kg Body Mass Index (BMI) 27.1 Intake & Output: Intake and Output for Last 24 Hours 07/12/22 07/13/22 07/14/22 23:59 23:59 23:59 Intake Total 6280.83 / 7551.66 3600.00 / 3600.00 Output Total 850 / 850 Balance 6280.83 / 7551.66 2750.00 / 2750.00 Lab / Micro Data Result Diagrams: 07/14/22 06:15 07/14/22 06:15 Labs: Laboratory Results - last 24 hr 07/13/22 11:40: POC Glucose 162 H 07/13/22 16:15: POC Glucose 159 H 07/13/22 21:13: POC Glucose 167 H 07/14/22 06:15: WBC 15.0 H, RBC 3.97 L, Hgb 12.8 L, Hct 35.9 L, MCV 90.4, MCH 32.2 H, MCHC 35.7, RDW Std Deviation 40.4, RDW Coeff of Armin 12.2, Plt Count 166, MPV 9.5, Immature Gran % (Auto) 0.400, Neut % (Auto) 86.3 H, Lymph % (Auto) 7.8 L, [place] % (Auto) 5.3, Eos % (Auto) 0.1, Baso % (Auto) 0.1, Absolute Neuts (auto) 13.0 H, Absolute Lymphs (auto) 1.17, Nucleated RBC % 0 07/14/22 06:15: Sodium 128 L, Potassium 3.3 L, Chloride 95 L, Carbon Dioxide 26.0, Anion Gap 7, BUN 6 L, Creatinine 0.74, Estim Creat Clear Calc 113.72, Est GFR (MDRD) Af Amer 141, Est GFR (MDRD) Non-Af 116, BUN/Creatinine Ratio 8.1 L, Glucose 160 H, Calcium 8.9 07/14/22 06:31: POC Glucose 174 H Physical Exam Const alert Constitutional Narrative: Oriented HEENT normocephalic and head/scalp atraumatic Eyes Eyes Narrative: EOM grossly intact, anicteric Neck supple Resp normal respiratory effort and clear to auscultation bilaterally Cardio regular rate and regular rhythm GI GI Narrative: Diffusely tender to palpation, no rebound guarding or rigidity Extremity Extremity Narrative: No edema appreciated Neuro moves all extremities Neuro Narrative: No overt focal deficits appreciated Psych Psych Narrative: Cooperative Assessment & Plan Assessment/Plan (1) Acute pancreatitis: QUALIFIERS: Pancreatitis type: unspecified pancreatitis type Acute pancreatitis complication: unspecified Qualified Code(s): K85.90 - Acute pancreatitis without necrosis or infection, unspecified (2) Diabetes: PLAN: Plan #Acute recurrent pancreatitis Had lipase of 822 on presentation and epigastric pain radiating to his back consistent with acute pancreatitis, CT obtained 07/13/2022 additionally reported inflammatory stranding about the pancreatic head and neck compatible with suspected acute pancreatitis Has had pancreatitis in the past with lipase as high as 5830 Hematocrit was 13.2 with BUN 12.1 Has been put on LR at 250 mL/h with Dilaudid for pain management IV Zofran Clear liquid diet will advance as tolerated Last triglyceride level 03/25/2022 was 107 He has had a cholecystectomy in the past 07/16/2022: Continues to have abdominal pain, does report pain medication to be helpful. Has been on 250 cc of fluid an hour, will continue fluids but decrease to 75 to avoid fluid overload now that he is doing slightly better. Continue pain management and supportive care, advance diet as tolerated #Hyponatremia Unclear etiology, will switch from LR to normal saline Will hold hydrochlorothiazide and obtain hyponatremia work-up #Alcohol use disorder Has been attempting to cut back, reported on admission drinking 2 beers weekly and does not think he drinks more than 1 beer per day, last drink was night of 07/11 We will start thiamine and folic acid supplementation Counseled on cessation and its importance #Type 2 diabetes mellitus Sliding scale insulin, metformin held On 10 units of insulin glargine at bedtime #Hypertension Continue home blood pressure medications, amlodipine 10 mg Given that we are holding hydrochlorothiazide secondary to hyponatremia Will increase losartan to 50 mg hydralazine as needed has been ordered #AGA Appear to have an AGA on admission with creatinine 1.43, improved to 0.91 this a.m. which appears to be close to baseline Has been on fluids #History of seizure disorder Stable, continued on Keppra #DVT prophylaxis: SCDs ordered Charges/Coding Visit Charges Inpatient E&M: 30400 Subs Hosp L2
[2022-07-14 08:10] VITALS: BP 156/99; PULSE 96; RESP 17; TEMP 36.6; O2SAT 95
[2022-07-14] MEDS: Folic Acid 1 MG Tablet PO (08:24)
[2022-07-14] MEDS: Loratadine 10 MG Tablet PO (08:25)
[2022-07-14] MEDS: Cyanocobalamin 500 MCG Tablet 1000 MCG PO (08:25)
[2022-07-14] MEDS: Aspirin E.C. 81 MG Tablet PO (08:26)
[2022-07-14] MEDS: Fluticasone 0.05% 1 SPRAY NASAL.SRY 2 SPRAY NASAL (08:27)
[2022-07-14] MEDS: Escitalopram Oxalate 10 MG Tablet PO (08:28)
[2022-07-14] MEDS: levETIRAcetam 500 MG Tablet PO ×2 (08:28→21:11)
[2022-07-14] MEDS: Magnesium Chloride 64 MG Delay Rel.Tablet 128 MG PO ×2 (08:28→21:11)
[2022-07-14] MEDS: Ursodiol 250 MG Tablet PO ×2 (08:29→21:10)
[2022-07-14] MEDS: Pantoprazole Sodium 40 MG Tablet PO (08:29)
[2022-07-14] MEDS: amLODIPine 10 MG Tablet PO (08:29)
[2022-07-14] MEDS: Tamsulosin HCl 0.4 MG Capsule PO (08:30)
[2022-07-14] MEDS: Cholecalciferol (Vit D3) 125 MCG CAPSULE (5,000 UNITS) PO (08:30)
[2022-07-14] MEDS: Lactulose 20 GM/30 ML UDC 10 GM PO (08:35)
[2022-07-14] MEDS: Thiamine Hydrochloride 200 MG/2 ML Vial 100 MG IM (08:48)
[2022-07-14] MEDS: Potassium Chloride Oral Tablet 20 MEQ 40 MEQ PO (08:49)
[2022-07-14] MEDS: Ondansetron 4 MG/2 ML Vial IV (08:49)
[2022-07-14] MEDS: 0.9% Normal Saline 1,000 ML 75 ML IV ×2 (08:49→21:09)
[2022-07-14] MEDS: Losartan Potassium 50 MG Tablet PO (09:18)
[2022-07-14] MEDS: Gabapentin 300 MG Capsule PO ×2 (09:18→21:17)
[2022-07-14] MEDS: Capsaicin 0.025% 1 APPLIC Tube TOPICAL (09:18)
[2022-07-14 09:20] LABS: Osmolality, Serum 270 mOsm/KG (275-295)
--- NOTE | 2022-07-14 10:00 | CASEMGMT ---
UZMA BAKER Assessment: Face to Face with pt for initial transition planning/care coordination assessment. UZMA BAKER introduced self and role at [facility], pt voices understanding and consents to assessment. Pt is A/O x4 and answers all questions appropriately at this time. Pt was in bed in no distress. Care providers, pharmacy, and demographics verified/updated. Admitting Dx: Acute Pancreatitis. PCP: Joel. Specialists: Friend, GI; a female neurologist unsure of name. Preferred Pharmacy: [facility]. Insurance: [employer]. Prescription Benefit: yes. LNOK: None listed. Living Arrangements: Pt lives alone in a multi-family unit. Pt lives in lower level with five steps to get into the home. Pt reports being I in ADLs. Pt reports he has cut back on alcohol use. He said has a beer here and there. Transportation: Pt uses [id number] for medical appointments. DME/HHC/SNF: Pt reports having a glucometer and supplies. Pt denies a hx of HH or SNF stays. Pt has a Mortgage Sales Manager, Estela. Pt has a Medic Alert with [employer]. Pt states no concerns with going home at time of dc. Pt states no further concerns/needs. CM to follow. Advised pt to ask CM if any further question/concerns/needs arise, voices understanding. Pt Goal: Home. Plan: Home. May need to use [facility] van for transportation home.
[2022-07-14 14:00] VITALS: BP 145/90; PULSE 81; RESP 17; TEMP 36.7; O2SAT 96
--- NOTE | 2022-07-14 15:34 | CHAPLAIN ---
Type of Pastoral Visit _x__ Initial Visit ___ Follow-up Visit ___ On-call Visit ___ General Patient Visit ___ Spiritual Assessment ___ Family Conference ___ Bereavement ___ Rapid Response ___ Code Blue ___ Other (describe below) Pastoral Care Referral From _x__ Patient ___ Family ___ Nurse ___ Physician ___ Comic Writer ___ Rotary Lithographic Press Operator ___ Other (describe below) Sacrament/Intervention _x__ Active listening ___ Anointing ___ Cheondoism ___ Bereavement ___ Communion _x__ Elsa exploration ___ ___ Life review _x__ Prayer ___ Reconciliation ___ Sacrament of Sick ___ Supportive presence ___ Wedding ___ Other (describe below) Pastoral Comments patient describes his health and goes into more detail about his elsa and belief in God; pt has clear understandings and opinions about his elsa; pt is open to prayer and presence of platform software engineer for spiritual care; pt does not have family close by for assistance but declares that he will not need extra care
[2022-07-14 16:35] LABS: Bedside Glucose 128 mg/dL (74-106)
[2022-07-14 17:50] LABS: Bedside Glucose 121 mg/dL (74-106)
[2022-07-14 21:00] VITALS: BP 146/95; PULSE 91; RESP 16; TEMP 37.1; O2SAT 95
[2022-07-14] MEDS: Pravastatin 20 MG Tablet 60 MG PO (21:10)
[2022-07-14] MEDS: Amitriptyline 25 MG Tablet PO (21:12)
[2022-07-14] MEDS: Latanoprost 0.005% 1 Bottle 1 DRP EACH EYE (21:14)
[2022-07-14 21:36] LABS: Bedside Glucose 95 mg/dL (74-106)
[2022-07-15] MEDS: DiphenhydrAMINE 50 MG/ML Syringe 25 MG IV ×4 (00:42→20:38)
[2022-07-15 03:00] VITALS: BP 128/92; PULSE 91; RESP 16; TEMP 36.7; O2SAT 98
[2022-07-15] MEDS: HYDROmorphone 1 MG/ML Syringe IV ×2 (06:32→22:55)
[2022-07-15] MEDS: Insulin Lispro 100 UNIT/ML INSULN.PEN SC ×3 (06:38→20:46)
[2022-07-15] MEDS: 0.9% Normal Saline 1,000 ML 75 ML IV (06:40)
[2022-07-15 06:41] LABS: Absolute Lymphocyte Count 1.84 X10^3/uL (0.83-4.51); Absolute Neutrophil Count 6.4 X10^3/uL (2.0-7.7); Basophil# 0.03 X10^3/uL; Basophil% 0.3 % (0-1); Eosinophil# 0.17 X10^3/uL; Eosinophils% 1.9 % (0-5); Hematocrit 36.7 % (40-54); Hemoglobin 12.5 g/dL (13.0-16.5); Lymphocyte # 1.84 X10^3/ul (0.83-4.51); Lymphocyte % 20.1 % (19-41); Mean Corp Hgb Conc 34.1 g/dL (32-36); Mean Corpuscular Volume 93.9 fL (80-94); Mean Platelet Vol. 9.8 fl (6.2-12.0); Monocyte# 0.68 X10^3/uL; Monocyte% 7.4 % (0-10); NRBC Flagged by Analyzer 0 % (0-5); Neutrophil # 6.38 X10^3/uL (2.7-7.7); Neutrophil % 69.9 % (47-70); Platelet Count 148 K/mm3 (150-450); RBC Distribution Width CV 12.5 % (11.6-14.6); RBC Distribution Width SD 43.3 fl (35.1-43.9); Red Blood Count 3.91 M/mm3 (4.6-6.2); White Blood Count 9.1 K/mm3 (4.4-11.0)
[2022-07-15 07:06] LABS: Bedside Glucose 164 mg/dL (74-106)
[2022-07-15 07:07] LABS: AST(SGOT) 16 U/L (15-37); Alanine Aminotransfer ALT/SGPT 14 U/L (16-61); Albumin, Serum 3.4 g/dL (3.2-5.0); Alkaline Phosphatase 61 U/L (45-117); Anion Gap 6 (5-15); BUN 6 mg/dL (7-18); BUN/Creat Ratio 7.2 RATIO (10-20); Calcium,Total 8.8 mg/dL (8.5-10.1); Chloride 106 mmol/L (98-107); Creatinine, Serum 0.83 mg/dL (0.70-1.30); EST Glomerular Filtration Rate 101 mL/min (>60); Est Glom Filt Rate - Afr Amer 122 mL/min (>60); Estimated Creatinine Clearance 101.39 ml/min; Globulin 3.4 g/dL (2.2-4.2); Glucose 122 mg/dL (74-106); Magnesium 2.1 mg/dL (1.6-2.6); Potassium 3.8 mmol/L (3.5-5.1); Protein, Total 6.8 g/dL (6.4-8.2); Sodium Level 137 mmol/L (136-145)
--- NOTE | 2022-07-15 07:20 | PN.HOSP_ITS ---
Subjective Subjective DOS: 07/15/2022 CC: Abdominal pain Endorses that his abdominal pain woke him up from sleep this morning, recently took pain medication which has been helpful. Does feel better overall from when he presented however continues to have pain. Did tolerate some clear liquids yesterday but does have nausea intermittently. Going to attempt to eat more food today. Did have a bowel movement yesterday, no problems with urination. Feet are not yet itching today. Denies other complaints at this time Objective Data Objective Data Vital Signs: Vital Signs Temp Pulse Resp BP Pulse Ox O2 Del Method 98.1 F 91 16 128/92 H 98 Room Air 07/15/22 03:00 07/15/22 03:00 07/15/22 03:00 07/15/22 03:00 07/15/22 03:00 07/15/22 03:00 Oxygen Delivery Method Room Air Weight: 85.9 kg Body Mass Index (BMI) 27.1 Intake & Output: Intake and Output for Last 24 Hours 07/13/22 07/14/22 07/15/22 23:59 23:59 23:59 Intake Total 6280.83 / 7551.66 5187.50 / 5587.50 1413.75 / 1413.75 Output Total 2450 / 2450 Balance 6280.83 / 7551.66 2737.50 / 3137.50 1413.75 / 1413.75 Lab / Micro Data Result Diagrams: 07/15/22 05:45 07/15/22 05:45 Labs: Laboratory Results - last 24 hr 07/14/22 08:30: Serum Osmolality 270 L 07/14/22 11:29: POC Glucose 121 H 07/14/22 16:15: POC Glucose 128 H 07/14/22 21:09: POC Glucose 95 07/15/22 05:45: WBC 9.1, RBC 3.91 L, Hgb 12.5 L, Hct 36.7 L, MCV 93.9, MCH 32.0, MCHC 34.1, RDW Std Deviation 43.3, RDW Coeff of Armin 12.5, Plt Count 148 L, MPV 9.8, Immature Gran % (Auto) 0.400, Neut % (Auto) 69.9, Lymph % (Auto) 20.1, [place] % (Auto) 7.4, Eos % (Auto) 1.9, Baso % (Auto) 0.3, Absolute Neuts (auto) 6.4, Absolute Lymphs (auto) 1.84, Nucleated RBC % 0 07/15/22 05:45: Sodium 137, Potassium 3.8, Chloride 106, Carbon Dioxide 25.0, An ion Gap 6, BUN 6 L, Creatinine 0.83, Estim Creat Clear Calc 101.39, Est GFR ( MDRD) Af Amer 122, Est GFR (MDRD) Non-Af 101, BUN/Creatinine Ratio 7.2 L, Glucose 122 H, Calcium 8.8, Magnesium 2.1, Total Bilirubin 0.80, AST 16, ALT 14 L, Alkaline Phosphatase 61, Total Protein 6.8, Albumin 3.4, Globulin 3.4, Alb umin/Globulin Ratio 1.0 07/15/22 06:37: POC Glucose 164 H Physical Exam Const alert Constitutional Narrative: Oriented HEENT normocephalic and head/scalp atraumatic Eyes Eyes Narrative: EOM grossly intact, anicteric Neck supple Resp normal respiratory effort and clear to auscultation bilaterally Cardio regular rate and regular rhythm GI GI Narrative: Diffusely tender to palpation, no rebound guarding or rigidity Extremity Extremity Narrative: No edema appreciated Neuro moves all extremities Neuro Narrative: No overt focal deficits appreciated Psych Psych Narrative: Cooperative Assessment & Plan Assessment/Plan (1) Acute pancreatitis: QUALIFIERS: Pancreatitis type: unspecified pancreatitis type Acute pancreatitis complication: unspecified Qualified Code(s): K85.90 - Acute pancreatitis without necrosis or infection, unspecified (2) Diabetes: PLAN: Plan #Acute recurrent pancreatitis Had lipase of 822 on presentation and epigastric pain radiating to his back consistent with acute pancreatitis, CT obtained 07/13/2022 additionally reported inflammatory stranding about the pancreatic head and neck compatible with suspected acute pancreatitis Has had pancreatitis in the past with lipase as high as 5830 Hematocrit was 13.2 with BUN 12.1 Has been put on LR at 250 mL/h with Dilaudid for pain management IV Zofran Clear liquid diet will advance as tolerated Last triglyceride level 03/25/2022 was 107 He has had a cholecystectomy in the past 07/14/2022: Continues to have abdominal pain, does report pain medication to be helpful. Has been on 250 cc of fluid an hour, will continue fluids but decrease to 75 to avoid fluid overload now that he is doing slightly better. Continue pain management and supportive care, advance diet as tolerated 07/15/2022: Does continue to have abdominal pain and is requiring IV pain medication however it is slowly improving. Discussed trying to transition to oral pain medication with a backup of IV pain medication as he is beginning to tolerate p.o. and is starting to improve and ideally will DC in next 1 to 2 days if can tolerate oral pain medication and p.o. intake. #Hyponatremia?resolved Unclear etiology, resolved after switching from LR to normal saline Giving improving p.o. intake. Fluids altogether #Alcohol use disorder Has been attempting to cut back, reported on admission drinking 2 beers weekly and does not think he drinks more than 1 beer per day, last drink was night of 07/11 We will start thiamine and folic acid supplementation Counseled on cessation and its importance #Type 2 diabetes mellitus Sliding scale insulin, metformin held On 10 units of insulin glargine at bedtime #Hypertension Continue home blood pressure medications, amlodipine 10 mg Given that we are holding hydrochlorothiazide secondary to hyponatremia Will increase losartan to 50 mg hydralazine as needed has been ordered #AGA Appear to have an AGA on admission with creatinine 1.43, has been improving Has been on fluids since admission with decreased rate yesterday, has been tolerating p.o. slightly better We will attempt to see how he does without fluids #History of seizure disorder Stable, continued on Keppra #DVT prophylaxis: SCDs ordered Charges/Coding Visit Charges Inpatient E&M: 31146 Subs Hosp L2
[2022-07-15 08:13] VITALS: BP 138/97; PULSE 88; RESP 16; TEMP 36.5; O2SAT 97
[2022-07-15] MEDS: Fluticasone 0.05% 1 SPRAY NASAL.SRY 2 SPRAY NASAL (08:50)
[2022-07-15] MEDS: Thiamine Hydrochloride 200 MG/2 ML Vial 100 MG IM (08:50)
[2022-07-15] MEDS: Tamsulosin HCl 0.4 MG Capsule PO (08:51)
[2022-07-15] MEDS: Folic Acid 1 MG Tablet PO (08:52)
[2022-07-15] MEDS: Gabapentin 300 MG Capsule PO ×2 (08:52→20:41)
[2022-07-15] MEDS: Losartan Potassium 50 MG Tablet PO (08:52)
[2022-07-15] MEDS: Cholecalciferol (Vit D3) 125 MCG CAPSULE (5,000 UNITS) PO (08:52)
[2022-07-15] MEDS: Pantoprazole Sodium 40 MG Tablet PO (08:53)
[2022-07-15] MEDS: Loratadine 10 MG Tablet PO (08:53)
[2022-07-15] MEDS: Lactulose 20 GM/30 ML UDC 10 GM PO (08:53)
[2022-07-15] MEDS: amLODIPine 10 MG Tablet PO (08:53)
[2022-07-15] MEDS: Aspirin E.C. 81 MG Tablet PO (08:53)
[2022-07-15] MEDS: Escitalopram Oxalate 10 MG Tablet PO (08:54)
[2022-07-15] MEDS: Cyanocobalamin 500 MCG Tablet 1000 MCG PO (08:54)
[2022-07-15] MEDS: levETIRAcetam 500 MG Tablet PO ×2 (08:54→20:34)
[2022-07-15] MEDS: Magnesium Chloride 64 MG Delay Rel.Tablet 128 MG PO ×2 (08:54→20:35)
[2022-07-15] MEDS: Ursodiol 250 MG Tablet PO ×2 (08:55→20:34)
[2022-07-15 09:30] VITALS: O2SAT 93
[2022-07-15] MEDS: oxyCODONE 5 MG Tablet 10 MG PO ×2 (10:52→17:23)
[2022-07-15 11:40] LABS: Bedside Glucose 202 mg/dL (74-106)
[2022-07-15 14:45] VITALS: BP 122/83; PULSE 86; RESP 15; TEMP 36.9; O2SAT 95
[2022-07-15 15:06] LABS: Urine Chloride 20 mmol/L (Not Establ.); Urine Sodium 24 mmol/L (Not Establ.)
[2022-07-15 15:37] LABS: Osmolality, Urine 148 mOsm/KG
--- NOTE | 2022-07-15 16:18 | CASEMGMT ---
Social Work Spoke with pt to follow up on services pt receives at home. Pt states he has a CM through [facility] - Estela, . The covering CM currently is also Estela, . Pt stated he spoke with covering CM today. SW also left a message with CM to notify of pt's admission and offered to fax DC paperwork, if needed. Provided nurse's station phone number. Pt stated he receives a LifeAlert, which pt was wearing, nurse visits, and transportation services through [facility] (Provider Ride). Pt will need transport arranged when discharged. SW assured pt, staff can arrange that. SW inquired about alcohol use and mental health. Pt reports to drinking beer, only beer, since 16 years old - about 1-2 beers day, but not every day. Reports to needing to cut back now, which pt reports as quitting cold turkey, which will be hard because he uses it to 'relax'. SW inquired about other coping skills. Pt was unable to note any. SW offered counseling, alcohol resources. Pt denied stated he has tried that before and gave up - not for me. SW educated to antidepressant/antianxiety medication to assist with mood/anxiety. Pt expressed interest in starting medication. SW to provide communication to attending physician, however, encouraged to speak to pt's PCP on medication and PCP will continue to manage medication. Pt expressed understanding. Pt noted no other needs. SW noted no other SW needs. Pt expressed appreciation for this worker's time and assistance. Notified nurse of request for medication whom will pass along to physician. MACKENZIE Byers SUPERINTENDENT LAUNDRY
[2022-07-15 17:00] LABS: Bedside Glucose 92 mg/dL (74-106)
[2022-07-15 18:25] VITALS: BP 138/86; PULSE 98; RESP 16; TEMP 36.8; O2SAT 96
[2022-07-15] MEDS: Amitriptyline 25 MG Tablet PO (20:36)
[2022-07-15] MEDS: Pravastatin 20 MG Tablet 60 MG PO (20:36)
[2022-07-15] MEDS: Latanoprost 0.005% 1 Bottle 1 DRP EACH EYE (20:37)
[2022-07-15] MEDS: Insulin Glargine-YFGN 100 UNIT/ML Pen 10 UNIT SC (20:47)
[2022-07-15 21:40] VITALS: BP 143/94; PULSE 86; RESP 16; TEMP 36.5; O2SAT 96
[2022-07-15] MEDS: 0.9% Saline Lock 10 ML Syringe IV (22:55)
[2022-07-15 23:05] LABS: Bedside Glucose 198 mg/dL (74-106)
[2022-07-16 03:40] VITALS: BP 140/93; PULSE 87; RESP 16; TEMP 36.6; O2SAT 98
[2022-07-16 07:06] LABS: Bedside Glucose 140 mg/dL (74-106)
[2022-07-16 07:14] LABS: Absolute Lymphocyte Count 1.74 X10^3/uL (0.83-4.51); Absolute Neutrophil Count 5.5 X10^3/uL (2.0-7.7); Basophil# 0.03 X10^3/uL; Basophil% 0.4 % (0-1); Eosinophil# 0.21 X10^3/uL; Eosinophils% 2.6 % (0-5); Hematocrit 36.5 % (40-54); Hemoglobin 12.3 g/dL (13.0-16.5); Lymphocyte # 1.74 X10^3/ul (0.83-4.51); Lymphocyte % 21.4 % (19-41); Mean Corp Hgb Conc 33.7 g/dL (32-36); Mean Corpuscular Hgb 31.7 pg (27.0-32.0); Mean Corpuscular Volume 94.1 fL (80-94); Mean Platelet Vol. 9.8 fl (6.2-12.0); Monocyte% 7.4 % (0-10); NRBC Flagged by Analyzer 0 % (0-5); Neutrophil # 5.51 X10^3/uL (2.7-7.7); Neutrophil % 67.6 % (47-70); Platelet Count 142 K/mm3 (150-450); RBC Distribution Width CV 12.6 % (11.6-14.6); RBC Distribution Width SD 43.6 fl (35.1-43.9); Red Blood Count 3.88 M/mm3 (4.6-6.2); White Blood Count 8.1 K/mm3 (4.4-11.0)
[2022-07-16 07:46] LABS: AST(SGOT) 20 U/L (15-37); Alanine Aminotransfer ALT/SGPT 17 U/L (16-61); Albumin, Serum 3.6 g/dL (3.2-5.0); Alkaline Phosphatase 60 U/L (45-117); Anion Gap 5 (5-15); BUN 6 mg/dL (7-18); BUN/Creat Ratio 6.6 RATIO (10-20); Chloride 107 mmol/L (98-107); Creatinine, Serum 0.92 mg/dL (0.70-1.30); EST Glomerular Filtration Rate 91 mL/min (>60); Est Glom Filt Rate - Afr Amer 110 mL/min (>60); Estimated Creatinine Clearance 91.47 ml/min; Globulin 3.6 g/dL (2.2-4.2); Glucose 144 mg/dL (74-106); Potassium 3.9 mmol/L (3.5-5.1); Protein, Total 7.2 g/dL (6.4-8.2); Sodium Level 138 mmol/L (136-145)
[2022-07-16 09:03] VITALS: BP 136/94; PULSE 77; RESP 16; TEMP 36.6; O2SAT 97
[2022-07-16] MEDS: oxyCODONE 5 MG Tablet 10 MG PO ×2 (09:05→14:37)
[2022-07-16] MEDS: Magnesium Chloride 64 MG Delay Rel.Tablet 128 MG PO ×2 (09:06→22:02)
[2022-07-16] MEDS: Lactulose 20 GM/30 ML UDC 10 GM PO (09:06)
[2022-07-16] MEDS: Aspirin E.C. 81 MG Tablet PO (09:06)
[2022-07-16] MEDS: Fluticasone 0.05% 1 SPRAY NASAL.SRY 2 SPRAY NASAL (09:07)
[2022-07-16] MEDS: levETIRAcetam 500 MG Tablet PO ×2 (09:07→22:02)
[2022-07-16] MEDS: Tamsulosin HCl 0.4 MG Capsule PO (09:08)
[2022-07-16] MEDS: Cyanocobalamin 500 MCG Tablet 1000 MCG PO (09:08)
[2022-07-16] MEDS: amLODIPine 10 MG Tablet PO (09:08)
[2022-07-16] MEDS: Folic Acid 1 MG Tablet PO (09:09)
[2022-07-16] MEDS: Escitalopram Oxalate 10 MG Tablet PO (09:09)
[2022-07-16] MEDS: Loratadine 10 MG Tablet PO (09:09)
[2022-07-16] MEDS: Losartan Potassium 50 MG Tablet PO (09:09)
[2022-07-16] MEDS: Pantoprazole Sodium 40 MG Tablet PO (09:09)
[2022-07-16] MEDS: Thiamine Hydrochloride 200 MG/2 ML Vial 100 MG IM (09:10)
[2022-07-16] MEDS: Cholecalciferol (Vit D3) 125 MCG CAPSULE (5,000 UNITS) PO (09:10)
[2022-07-16] MEDS: Ursodiol 250 MG Tablet PO ×2 (09:10→22:01)
[2022-07-16] MEDS: Gabapentin 300 MG Capsule PO ×2 (09:15→22:07)
--- NOTE | 2022-07-16 11:19 | PCM.PN.HOSP ---
Subjective Subjective DOS: 07/16/2022 CC: Abdominal pain Mr. Ochoa reports that he is overall feeling better, does still have abdominal pain that was fairly significant this morning but tolerated the oral pain medication well and once it kicked and did find it helpful. Has been tolerating clear liquids and would like to try to eat lunch. Nausea certainly improved. Has not had any bowel movements but is passing gas, no changes in urination. Does still intermittently have the itching, which she does routinely get when he takes opioids. Also has neuropathic pain which intermittently bothers him. Denies chest pain or shortness of breath. No other complaints this morning Objective Data Objective Data Vital Signs: Vital Signs Temp Pulse Resp BP Pulse Ox O2 Del Method 97.8 F 77 16 136/94 H 97 Room Air 07/16/22 09:03 07/16/22 09:03 07/16/22 09:03 07/16/22 09:03 07/16/22 09:03 07/16/22 09:03 Oxygen Delivery Method Room Air Weight: 85.9 kg Body Mass Index (BMI) 27.1 Intake & Output: Intake and Output for Last 24 Hours 07/14/22 07/15/22 07/16/22 23:59 23:59 23:59 Intake Total 5187.50 / 5587.50 1663.75 / 1663.75 600 / 600 Output Total 2450 / 2450 Balance 2737.50 / 3137.50 1663.75 / 1663.75 600 / 600 Lab / Micro Data Result Diagrams: 07/16/22 06:11 07/16/22 06:11 Labs: Laboratory Results - last 24 hr 07/14/22 14:40: Urine Osmolality 148, Ur Random Sodium 24, Urine Potassium 6.0, Urine Chloride 20 07/15/22 11:17: POC Glucose 202 H 07/15/22 16:39: POC Glucose 92 07/15/22 20:46: POC Glucose 198 H 07/16/22 06:11: WBC 8.1, RBC 3.88 L, Hgb 12.3 L, Hct 36.5 L, MCV 94.1 H, MCH 31.7, MCHC 33.7, RDW Std Deviation 43.6, RDW Coeff of Armin 12.6, Plt Count 142 L, MPV 9.8, Immature Gran % (Auto) 0.600, Neut % (Auto) 67.6, Lymph % (Auto) 21.4, [place] % (Auto) 7.4, Eos % (Auto) 2.6, Baso % (Auto) 0.4, Absolute Neuts (auto) 5.5, Absolute Lymphs (auto) 1.74, Nucleated RBC % 0 07/16/22 06:11: Sodium 138, Potassium 3.9, Chloride 107, Carbon Dioxide 26.0, Anion Gap 5, BUN 6 L, Creatinine 0.92, Estim Creat Clear Calc 91.47, Est GFR (MDRD) Af Amer 110, Est GFR (MDRD) Non-Af 91, BUN/Creatinine Ratio 6.6 L, Glucose 144 H, Calcium 9.0, Total Bilirubin 0.70, AST 20, ALT 17, Alkaline Phosphatase 60, Total Protein 7.2, Albumin 3.6, Globulin 3.6, Albumin/Globulin Ratio 1.0 07/16/22 06:38: POC Glucose 140 H Physical Exam Const alert Constitutional Narrative: Oriented HEENT normocephalic and head/scalp atraumatic Eyes Eyes Narrative: EOM grossly intact, anicteric Neck supple Resp normal respiratory effort and clear to auscultation bilaterally Cardio regular rate and regular rhythm GI GI Narrative: Mildly tender to palpation, primarily on the right side, no rebound guarding or rigidity Extremity Extremity Narrative: No edema appreciated Neuro moves all extremities Neuro Narrative: No overt focal deficits appreciated Psych Psych Narrative: Cooperative Assessment & Plan Assessment/Plan (1) Acute pancreatitis: QUALIFIERS: Pancreatitis type: unspecified pancreatitis type Acute pancreatitis complication: unspecified Qualified Code(s): K85.90 - Acute pancreatitis without necrosis or infection, unspecified (2) Diabetes: PLAN: Plan #Acute recurrent pancreatitis Had lipase of 822 on presentation and epigastric pain radiating to his back consistent with acute pancreatitis, CT obtained 07/13/2022 additionally reported inflammatory stranding about the pancreatic head and neck compatible with suspected acute pancreatitis Has had pancreatitis in the past with lipase as high as 5830 Hematocrit was 13.2 with BUN 12.1 Has been put on LR at 250 mL/h with Dilaudid for pain management IV Zofran Clear liquid diet will advance as tolerated Last triglyceride level 03/25/2022 was 107 He has had a cholecystectomy in the past 07/14/2022: Continues to have abdominal pain, does report pain medication to be helpful. Has been on 250 cc of fluid an hour, will continue fluids but decrease to 75 to avoid fluid overload now that he is doing slightly better. Continue pain management and supportive care, advance diet as tolerated 07/15/2022: Does continue to have abdominal pain and is requiring IV pain medication however it is slowly improving. Discussed trying to transition to oral pain medication with a backup of IV pain medication as he is beginning to tolerate p.o. and is starting to improve and ideally will DC in next 1 to 2 days if can tolerate oral pain medication and p.o. intake. 07/16/2022: Is certainly improving, is beginning to tolerate p.o. Transitioning to oral pain medication, will stop the Dilaudid today. Discussed this with Mr. Ochoa and will substitute oral oxycodone. If he tolerates diet today and is still doing well through the night and tomorrow will discharge home with several days of pain medication for home. #Hyponatremia?resolved Unclear etiology, resolved after switching from LR to normal saline Giving improving p.o. intake. #Alcohol use disorder Has been attempting to cut back, reported on admission drinking 2 beers weekly and does not think he drinks more than 1 beer per day, last drink was night of 07/11 We will start thiamine and folic acid supplementation Counseled on cessation and its importance #Type 2 diabetes mellitus Sliding scale insulin, metformin held On 10 units of insulin glargine at bedtime #Hypertension Continue home blood pressure medications, amlodipine 10 mg Given that we are holding hydrochlorothiazide secondary to hyponatremia Will increase losartan to 50 mg hydralazine as needed has been ordered #AGA?resolved Appear to have an AGA on admission with creatinine 1.43, has been improving Has been on fluids since admission with decreased rate yesterday, has been tolerating p.o. slightly better We will attempt to see how he does without fluids 07/16/2022 resolved #History of seizure disorder Stable, continued on Keppra #DVT prophylaxis: SCDs ordered Charges/Coding Visit Charges Inpatient E&M: 11019 Subs Hosp L2
[2022-07-16] MEDS: Insulin Lispro 100 UNIT/ML INSULN.PEN SC (12:08)
[2022-07-16] MEDS: DiphenhydrAMINE 50 MG/ML Syringe 25 MG IV ×2 (12:12→20:05)
[2022-07-16 12:31] LABS: Bedside Glucose 341 mg/dL (74-106)
--- NOTE | 2022-07-16 12:58 | CASEMGMT ---
Social Work As per lamp stack developer, pt has LW but cannot bring it in. Pt does not have POA and declined further information. TIM Rahman
[2022-07-16 14:35] VITALS: BP 126/83; PULSE 87; RESP 18; TEMP 36.7; O2SAT 95
[2022-07-16 17:40] LABS: Bedside Glucose 149 mg/dL (74-106)
[2022-07-16] MEDS: HYDROmorphone 1 MG/ML Syringe IV (18:16)
[2022-07-16] MEDS: 0.9% Saline Lock 10 ML Syringe IV ×2 (18:16→20:06)
[2022-07-16 20:27] VITALS: BP 147/91; PULSE 83; RESP 16; TEMP 36.3; O2SAT 99
[2022-07-16] MEDS: Pravastatin 20 MG Tablet 60 MG PO (22:02)
[2022-07-16] MEDS: Latanoprost 0.005% 1 Bottle 1 DRP EACH EYE (22:04)
[2022-07-16] MEDS: Amitriptyline 25 MG Tablet PO (22:04)
[2022-07-16] MEDS: Insulin Glargine-YFGN 100 UNIT/ML Pen 10 UNIT SC (22:07)
[2022-07-16 22:30] LABS: Bedside Glucose 149 mg/dL (74-106)
[2022-07-17] MEDS: oxyCODONE 5 MG Tablet 10 MG PO ×4 (00:13→21:10)
[2022-07-17 06:00] VITALS: BP 127/91; PULSE 73; RESP 16; TEMP 36.4; O2SAT 98
[2022-07-17 06:25] LABS: Bedside Glucose 137 mg/dL (74-106)
[2022-07-17 07:26] LABS: Absolute Lymphocyte Count 2.48 X10^3/uL (0.83-4.51); Basophil# 0.04 X10^3/uL; Basophil% 0.4 % (0-1); Eosinophil# 0.21 X10^3/uL; Eosinophils% 2.2 % (0-5); Hematocrit 36.5 % (40-54); Hemoglobin 12.1 g/dL (13.0-16.5); Lymphocyte # 2.48 X10^3/ul (0.83-4.51); Lymphocyte % 26.2 % (19-41); Mean Corp Hgb Conc 33.2 g/dL (32-36); Mean Corpuscular Volume 93.6 fL (80-94); Mean Platelet Vol. 9.7 fl (6.2-12.0); Monocyte# 0.72 X10^3/uL; Monocyte% 7.6 % (0-10); NRBC Flagged by Analyzer 0 % (0-5); Neutrophil # 5.98 X10^3/uL (2.7-7.7); Neutrophil % 63.3 % (47-70); Platelet Count 158 K/mm3 (150-450); RBC Distribution Width CV 12.6 % (11.6-14.6); White Blood Count 9.5 K/mm3 (4.4-11.0)
[2022-07-17 08:01] LABS: AST(SGOT) 15 U/L (15-37); Alanine Aminotransfer ALT/SGPT 18 U/L (16-61); Albumin, Serum 3.6 g/dL (3.2-5.0); Alkaline Phosphatase 62 U/L (45-117); Anion Gap 6 (5-15); BUN 10 mg/dL (7-18); BUN/Creat Ratio 10.3 RATIO (10-20); Calcium,Total 9.1 mg/dL (8.5-10.1); Chloride 106 mmol/L (98-107); Creatinine, Serum 0.97 mg/dL (0.70-1.30); EST Glomerular Filtration Rate 85 mL/min (>60); Est Glom Filt Rate - Afr Amer 102 mL/min (>60); Estimated Creatinine Clearance 86.76 ml/min; Globulin 3.7 g/dL (2.2-4.2); Glucose 146 mg/dL (74-106); Magnesium 1.9 mg/dL (1.6-2.6); Potassium 3.8 mmol/L (3.5-5.1); Protein, Total 7.3 g/dL (6.4-8.2); Sodium Level 138 mmol/L (136-145)
--- NOTE | 2022-07-17 08:21 | PN.HOSP_ITS ---
Subjective Subjective DOS: 07/17/2022 CC: Abdominal pain Did advance diet yesterday, but had severe abdominal pain and nausea requiring another dose of IV Dilaudid. Did take the oral pain medication once that wore off which was helpful. Going to try again today to see how well he is able to tolerate p.o. without IV pain medication. Is improving overall but with residual pain, difficulty tolerating p.o., need for further IV pain medication do not feel it is appropriate for discharge today. Discussed this with him and he agrees. Is passing gas but no further bowel movements. Urination or plan changed. No chest pain or shortness of breath. Denies further complaints this morning Objective Data Objective Data Vital Signs: Vital Signs Temp Pulse Resp BP Pulse Ox O2 Del Method 97.5 F L 73 16 127/91 H 98 Room Air 07/17/22 06:00 07/17/22 06:00 07/17/22 06:00 07/17/22 06:00 07/17/22 06:00 07/17/22 06:00 Oxygen Delivery Method Room Air Weight: 85.9 kg Body Mass Index (BMI) 27.1 Intake & Output: Intake and Output for Last 24 Hours 07/15/22 07/16/22 07/17/22 23:59 23:59 23:59 Intake Total 1663.75 / 1663.75 1939 Balance 1663.75 / 1663.75 1939 Lab / Micro Data Result Diagrams: 07/17/22 05:50 07/17/22 05:50 Labs: Laboratory Results - last 24 hr 07/16/22 12:06: POC Glucose 341 H 07/16/22 17:20: POC Glucose 149 H 07/16/22 22:00: POC Glucose 149 H 07/17/22 05:50: WBC 9.5, RBC 3.90 L, Hgb 12.1 L, Hct 36.5 L, MCV 93.6, MCH 31.0, MCHC 33.2, RDW Std Deviation 43.0, RDW Coeff of Armin 12.6, Plt Count 158, MPV 9.7, Immature Gran % (Auto) 0.300, Neut % (Auto) 63.3, Lymph % (Auto) 26.2, [place] % (Auto) 7.6, Eos % (Auto) 2.2, Baso % (Auto) 0.4, Absolute Neuts (auto) 6.0, Absolute Lymphs (auto) 2.48, Nucleated RBC % 0 07/17/22 05:50: Sodium 138, Potassium 3.8, Chloride 106, Carbon Dioxide 26.0, Anion Gap 6, BUN 10, Creatinine 0.97, Estim Creat Clear Calc 86.76, Est GFR (MDRD) Af Amer 102, Est GFR (MDRD) Non-Af 85, BUN/Creatinine Ratio 10.3, Glucose 146 H, Calcium 9.1, Magnesium 1.9, Total Bilirubin 0.60, AST 15, ALT 18, Alkaline Phosphatase 62, Total Protein 7.3, Albumin 3.6, Globulin 3.7, Albumin/Globulin Ratio 1.0 07/17/22 06:05: POC Glucose 137 H Physical Exam Const alert Constitutional Narrative: Oriented HEENT normocephalic and head/scalp atraumatic Eyes Eyes Narrative: EOM grossly intact, anicteric Neck supple Resp normal respiratory effort and clear to auscultation bilaterally Cardio regular rate and regular rhythm GI GI Narrative: Mildly tender to palpation, primarily on the right side, no rebound guarding or rigidity Extremity Extremity Narrative: No edema appreciated Neuro moves all extremities Neuro Narrative: No overt focal deficits appreciated Psych Psych Narrative: Cooperative Assessment & Plan Assessment/Plan (1) Acute pancreatitis: QUALIFIERS: Pancreatitis type: unspecified pancreatitis type Acute pancreatitis complication: unspecified Qualified Code(s): K85.90 - Acute pancreatitis without necrosis or infection, unspecified (2) Diabetes: PLAN: Plan #Acute recurrent pancreatitis Had lipase of 822 on presentation and epigastric pain radiating to his back consistent with acute pancreatitis, CT obtained 07/13/2022 additionally reported inflammatory stranding about the pancreatic head and neck compatible with suspected acute pancreatitis Has had pancreatitis in the past with lipase as high as 5830 Hematocrit was 13.2 with BUN 12.1 Has been put on LR at 250 mL/h with Dilaudid for pain management IV Zofran Clear liquid diet will advance as tolerated Last triglyceride level 03/25/2022 was 107 He has had a cholecystectomy in the past 07/14/2022: Continues to have abdominal pain, does report pain medication to be helpful. Has been on 250 cc of fluid an hour, will continue fluids but decrease to 75 to avoid fluid overload now that he is doing slightly better. Continue pain management and supportive care, advance diet as tolerated 07/15/2022: Does continue to have abdominal pain and is requiring IV pain medication however it is slowly improving. Discussed trying to transition to oral pain medication with a backup of IV pain medication as he is beginning to tolerate p.o. and is starting to improve and ideally will DC in next 1 to 2 days if can tolerate oral pain medication and p.o. intake. 07/16/2022: Is certainly improving, is beginning to tolerate p.o. Transitioning to oral pain medication, will stop the Dilaudid today. Discussed this with Mr. Ochoa and will substitute oral oxycodone. If he tolerates diet today and is still doing well through the night and tomorrow will discharge home with several days of pain medication for home. 07/17/2022: Advance diet and he had difficulty tolerating this yesterday, required IV pain medication. Was also having nausea. Discussed dispo, given continued difficulty tolerating p.o. with advance diet as well as need for IV pain medication will keep through today. Requirements have gone down and overall he is improving, pending progress today and pain requirements will likely be appropriate for discharge tomorrow. But if unable to tolerate p.o. or manage pain as an outpatient high likelihood for readmission and adverse outcomes. Was given a one-time as needed 1 mg IV Dilaudid yesterday, the prn order had been/is discontinued in favor of the oral pain medication, but can consider one-time doses for severe pain. #Hyponatremia?resolved Unclear etiology, resolved after switching from LR to normal saline Giving improving p.o. intake. #Alcohol use disorder Has been attempting to cut back, reported on admission drinking 2 beers weekly and does not think he drinks more than 1 beer per day, last drink was night of 07/11 We will start thiamine and folic acid supplementation Counseled on cessation and its importance #Type 2 diabetes mellitus Sliding scale insulin, metformin held On 10 units of insulin glargine at bedtime #Hypertension Continue home blood pressure medications, amlodipine 10 mg Given that we are holding hydrochlorothiazide secondary to hyponatremia Will increase losartan to 50 mg hydralazine as needed has been ordered #AGA?resolved Appear to have an AGA on admission with creatinine 1.43, has been improving Has been on fluids since admission with decreased rate yesterday, has been royce erating p.o. slightly better We will attempt to see how he does without fluids 07/16/2022 resolved #History of seizure disorder Stable, continued on Keppra #DVT prophylaxis: SCDs ordered Charges/Coding Visit Charges Inpatient E&M: 69932 Subs Hosp L2
[2022-07-17 08:56] VITALS: BP 141/96; PULSE 84; RESP 18; TEMP 36.8; O2SAT 95
[2022-07-17] MEDS: Lactulose 20 GM/30 ML UDC 10 GM PO (08:57)
[2022-07-17] MEDS: Magnesium Chloride 64 MG Delay Rel.Tablet 128 MG PO ×2 (08:57→21:12)
[2022-07-17] MEDS: Cholecalciferol (Vit D3) 125 MCG CAPSULE (5,000 UNITS) PO (08:58)
[2022-07-17] MEDS: Loratadine 10 MG Tablet PO (08:58)
[2022-07-17] MEDS: Folic Acid 1 MG Tablet PO (08:58)
[2022-07-17] MEDS: Cyanocobalamin 500 MCG Tablet 1000 MCG PO (08:58)
[2022-07-17] MEDS: Aspirin E.C. 81 MG Tablet PO (08:59)
[2022-07-17] MEDS: Escitalopram Oxalate 10 MG Tablet PO (08:59)
[2022-07-17] MEDS: Fluticasone 0.05% 1 SPRAY NASAL.SRY 2 SPRAY NASAL (08:59)
[2022-07-17] MEDS: levETIRAcetam 500 MG Tablet PO ×2 (09:00→21:13)
[2022-07-17] MEDS: Tamsulosin HCl 0.4 MG Capsule PO (09:00)
[2022-07-17] MEDS: amLODIPine 10 MG Tablet PO (09:00)
[2022-07-17] MEDS: Ursodiol 250 MG Tablet PO ×2 (09:00→21:12)
[2022-07-17] MEDS: Pantoprazole Sodium 40 MG Tablet PO (09:00)
[2022-07-17] MEDS: Losartan Potassium 50 MG Tablet PO (09:02)
[2022-07-17] MEDS: Gabapentin 300 MG Capsule PO ×2 (09:02→21:19)
[2022-07-17] MEDS: Thiamine Hydrochloride 100 MG Tablet PO (12:27)
[2022-07-17] MEDS: Insulin Lispro 100 UNIT/ML INSULN.PEN SC ×3 (12:27→21:26)
[2022-07-17 12:30] LABS: Bedside Glucose 285 mg/dL (74-106)
[2022-07-17 14:26] VITALS: BP 128/87; PULSE 70; RESP 16; TEMP 36.6; O2SAT 97
[2022-07-17 17:25] LABS: Bedside Glucose 231 mg/dL (74-106)
[2022-07-17] MEDS: DiphenhydrAMINE 50 MG/ML Syringe 25 MG IV (21:10)
[2022-07-17] MEDS: 0.9% Saline Lock 10 ML Syringe IV (21:10)
[2022-07-17] MEDS: Pravastatin 20 MG Tablet 60 MG PO (21:12)
[2022-07-17] MEDS: Amitriptyline 25 MG Tablet PO (21:12)
[2022-07-17] MEDS: Latanoprost 0.005% 1 Bottle 1 DRP EACH EYE (21:13)
[2022-07-17 21:15] VITALS: BP 142/94; PULSE 79; RESP 16; TEMP 36.8; O2SAT 97
[2022-07-17] MEDS: Insulin Glargine-YFGN 100 UNIT/ML Pen 10 UNIT SC (21:25)
[2022-07-17 22:10] LABS: Bedside Glucose 297 mg/dL (74-106)
[2022-07-18 06:11] VITALS: BP 133/93; PULSE 74; RESP 16; TEMP 36.6; O2SAT 96
[2022-07-18] MEDS: Insulin Lispro 100 UNIT/ML INSULN.PEN SC ×2 (06:14→11:53)
[2022-07-18 06:36] LABS: Bedside Glucose 173 mg/dL (74-106)
[2022-07-18 06:55] LABS: Absolute Lymphocyte Count 2.36 X10^3/uL (0.83-4.51); Absolute Neutrophil Count 4.9 X10^3/uL (2.0-7.7); Basophil# 0.04 X10^3/uL; Basophil% 0.5 % (0-1); Eosinophil# 0.19 X10^3/uL; Eosinophils% 2.3 % (0-5); Hemoglobin 12.7 g/dL (13.0-16.5); Lymphocyte # 2.36 X10^3/ul (0.83-4.51); Lymphocyte % 28.9 % (19-41); Mean Corp Hgb Conc 33.4 g/dL (32-36); Mean Corpuscular Hgb 31.4 pg (27.0-32.0); Mean Corpuscular Volume 94.1 fL (80-94); Mean Platelet Vol. 9.9 fl (6.2-12.0); Monocyte# 0.66 X10^3/uL; Monocyte% 8.1 % (0-10); NRBC Flagged by Analyzer 0 % (0-5); Neutrophil # 4.89 X10^3/uL (2.7-7.7); Neutrophil % 59.8 % (47-70); Platelet Count 169 K/mm3 (150-450); RBC Distribution Width CV 12.7 % (11.6-14.6); RBC Distribution Width SD 43.8 fl (35.1-43.9); Red Blood Count 4.04 M/mm3 (4.6-6.2); White Blood Count 8.2 K/mm3 (4.4-11.0)
[2022-07-18 07:09] LABS: ALB/GLOB Ratio 0.9 RATIO (0.9-2.4); AST(SGOT) 14 U/L (15-37); Alanine Aminotransfer ALT/SGPT 19 U/L (16-61); Albumin, Serum 3.6 g/dL (3.2-5.0); Alkaline Phosphatase 60 U/L (45-117); Anion Gap 5 (5-15); BUN 14 mg/dL (7-18); BUN/Creat Ratio 13.7 RATIO (10-20); Calcium,Total 9.3 mg/dL (8.5-10.1); Chloride 106 mmol/L (98-107); Creatinine, Serum 1.02 mg/dL (0.70-1.30); EST Glomerular Filtration Rate 80 mL/min (>60); Est Glom Filt Rate - Afr Amer 97 mL/min (>60); Globulin 3.8 g/dL (2.2-4.2); Glucose 162 mg/dL (74-106); Magnesium 1.8 mg/dL (1.6-2.6); Potassium 4.1 mmol/L (3.5-5.1); Protein, Total 7.4 g/dL (6.4-8.2); Sodium Level 137 mmol/L (136-145)
[2022-07-18] MEDS: Loratadine 10 MG Tablet PO (07:59)
[2022-07-18] MEDS: Aspirin E.C. 81 MG Tablet PO (07:59)
[2022-07-18] MEDS: Cholecalciferol (Vit D3) 125 MCG CAPSULE (5,000 UNITS) PO (07:59)
[2022-07-18] MEDS: Pantoprazole Sodium 40 MG Tablet PO (08:00)
[2022-07-18] MEDS: Losartan Potassium 50 MG Tablet PO (08:00)
[2022-07-18] MEDS: Magnesium Chloride 64 MG Delay Rel.Tablet 128 MG PO (08:00)
[2022-07-18] MEDS: Cyanocobalamin 500 MCG Tablet 1000 MCG PO (08:00)
[2022-07-18] MEDS: Folic Acid 1 MG Tablet PO (08:00)
[2022-07-18] MEDS: Escitalopram Oxalate 10 MG Tablet PO (08:00)
[2022-07-18] MEDS: levETIRAcetam 500 MG Tablet PO (08:00)
[2022-07-18] MEDS: Ursodiol 250 MG Tablet PO (08:00)
[2022-07-18] MEDS: Tamsulosin HCl 0.4 MG Capsule PO (08:01)
[2022-07-18] MEDS: Fluticasone 0.05% 1 SPRAY NASAL.SRY 2 SPRAY NASAL (08:01)
[2022-07-18] MEDS: amLODIPine 10 MG Tablet PO (08:01)
[2022-07-18] MEDS: Lactulose 20 GM/30 ML UDC 10 GM PO (08:02)
[2022-07-18] MEDS: Gabapentin 300 MG Capsule PO (08:04)
[2022-07-18] MEDS: Thiamine Hydrochloride 100 MG Tablet PO (08:06)
[2022-07-18 08:36] VITALS: BP 134/83; PULSE 90; RESP 16; TEMP 36.5; O2SAT 97
[2022-07-18] MEDS: oxyCODONE 5 MG Tablet 10 MG PO (09:06)
--- NOTE | 2022-07-18 09:51 | CASEMGMT ---
[facility] to [facility] Transportation. Pt will be transported at 3:00pm to home. RN SAMUEL to pt's room to advise. Pt is agreeable. Notified Pt's nurse.
--- NOTE | 2022-07-18 10:09 | DCINST_ITS ---
Discharge Instructions Diet Discharge Diet: Low fat / Low cholesterol, 2000 Calorie Control Diet and 2000 mg Sodium Diet Activity Discharge Activity: Return to Normal Activity Follow Up Care Test Results: Test results from this visit will be discussed in further detail at your follow- up appointment, if applicable. Discharge Plan Admission Admit Date/Time: 07/13/22 09:20 Primary Reason for Your Visit: Acute pancreatitis Attending Provider: Mia Carr Primary Care Provider: Lobito Maldonado Consulting Providers: Lazaro Chin ; Roxana Cox Instructions Additional Instructions / Restrictions: Continue to keep yourself hydrated. Follow-up with your primary care doctor within 1 week. Discharge Orders/Prescriptions Prescriptions: Continued amitriptyline 25 mg tablet 25 mg PO QHS gabapentin 300 mg capsule 300 mg PO BID nitroglycerin 0.4 MG tablet 0.4 mg sublingual Q5M PRN (Reason: Chest Pain) cholecalciferol (vitamin D3) 5,000 capsule 1 cap PO DAILY insulin glargine 100 UNIT/ML solution 10 unit SQ QHS latanoprost 0.005 % drops 1 drp EACH EYE QHS tamsulosin 0.4 mg Capsule 0.4 mg PO DAILY pantoprazole 40 mg Tablet,Delayed Release (Dr/Ec) 40 mg PO DAILY pravastatin 40 mg Tablet 60 mg PO QHS magnesium oxide 400 mg (241.3 mg magnesium) tablet 400 mg PO BID lactulose 10 gram/15 mL solution 10 g PO DAILY metformin 500 MG tablet 500 mg PO BID Qty: 0 0RF aspirin 81 mg Tablet,Delayed Release (Dr/Ec) 81 mg PO DAILY fluticasone propionate [Flonase Allergy Relief] 50 mcg/actuation [place],Suspension 2 spray INTRANASAL DAILY Rx Instructions: administer into each nostril escitalopram oxalate 10 mg tablet 10 mg PO DAILY levetiracetam 500 mg tablet 500 mg PO BID amlodipine 10 mg tablet 10 mg PO DAILY loratadine 10 MG capsule 10 mg PO DAILY omega-3 fatty acids-fish oil 684-1,200 mg Capsule,Delayed Release(Dr/Ec) 2 cap PO DAILY hydrochlorothiazide 25 mg tablet 25 mg PO DAILY Qty: 30 11RF ursodiol 250 mg tablet 250 mg PO BID Qty: 180 1RF No Action losartan 25 mg tablet 25 mg PO DAILY Referrals / Follow Up: Lobito Maldonado MD [Primary Care Provider] - In 1 Week Disposition Disposition (needs filled in before D/C Order can be placed): Home, Self Care
--- NOTE | 2022-07-18 10:13 | PCM.DC.SUM ---
Providers Date of Admission: 07/13/22 Date of Discharge: 07/18/22 Primary Care Physician: Dr. Lobito Maldonado MD Reason For Visit: ACUTE PANCREATITIS Diagnosis Discharge Diagnosis (1) Acute pancreatitis: Status: Acute Code(s): K85.90 - Acute pancreatitis without necrosis or infection, unspecified Qualifiers: Acute pancreatitis complication: unspecified Pancreatitis type: unspecified pancreatitis type Qualified Code(s): K85.90 - Acute pancreatitis without necrosis or infection, unspecified (2) Diabetes: Status: Acute Code(s): E11.9 - Type 2 diabetes mellitus without complications (3) Hyponatremia: Status: Acute Code(s): E87.1 - Hypo-osmolality and hyponatremia Plan 1. Acute recurrent pancreatitis 2. Hyponatremia 3. Alcohol use disorder 4. Type II DM 5. Hypertension 6. AGA, prerenal, present on admission, resolved at discharge 7. Seizure disorder Medications at Discharge Home Medications nitroglycerin 0.4 mg sublingual tablet 0.4 mg sublingual Q5M PRN Chest Pain 07/15/13 amitriptyline 25 mg tablet 25 mg PO QHS depression 07/03/18 cholecalciferol (vitamin D3) 125 mcg (5,000 unit) capsule 1 cap PO DAILY supplement 11/09/18 hydrochlorothiazide 25 mg tablet 25 mg PO DAILY blood pressure/heart #30 tabs 06/05/20 gabapentin 300 mg capsule 300 mg PO BID nerve pain 10/06/20 insulin glargine 100 unit/mL subcutaneous solution 10 unit SQ QHS diabetes 12/30/20 latanoprost 0.005 % eye drops 1 drp EACH EYE QHS glucoma 12/07/21 lactulose 10 gram/15 mL oral solution 10 g PO DAILY constipation 02/27/22 magnesium oxide 400 mg (241.3 mg magnesium) tablet 400 mg PO BID supplement 02/27/22 pantoprazole 40 mg tablet,delayed release 40 mg PO DAILY gerd 02/27/22 pravastatin 40 mg tablet 60 mg PO QHS cholesterol 02/27/22 tamsulosin 0.4 mg capsule 0.4 mg PO DAILY BPH 02/27/22 metformin 500 mg tablet 500 mg PO BID diabetes #0 tabs 03/04/22 ursodiol 250 mg tablet 250 mg PO BID liver fibrosis #180 tabs 04/19/22 amlodipine 10 mg tablet 10 mg PO DAILY blood pressure 07/04/22 aspirin 81 mg tablet,delayed release 81 mg PO DAILY heart health 07/04/22 escitalopram oxalate 10 mg tablet 10 mg PO DAILY depression 07/04/22 fluticasone propionate 50 mcg/actuation nasal spray,suspension (Flonase Allergy Relief) 2 spray intranasal DAILY allergies 07/04/22 levetiracetam 500 mg tablet 500 mg PO BID seizures 07/04/22 loratadine 10 mg capsule 10 mg PO DAILY sinus 07/04/22 losartan 25 mg tablet 25 mg PO DAILY blood pressure 07/04/22 omega-3 fatty acids-fish oil 684 mg-1,200 mg capsule,delayed release 2 cap PO DAILY supplement 07/04/22 Hospital Course Operations None Procedures None Summary of Care Provided Minutes Spent on Discharge: 40 Hospital Course: 57-year-old male with past medical history of alcohol abuse, seizure disorder, type II DM, history of recurrent pancreatitis who presented on 07/13/22 with excruciating epigastric pain that radiated to his back. Patient presented to the emergency room when pain was persistent. He last drank alcohol?beer and night before presentation. Patient's admitting lipase level was 828. CT of the abdomen and pelvis showed inflammatory stranding about the pancreatic head and neck compatible with acute monarthritis. [facility] and managed conservatively with IV fluids. His diet was advanced slowly with improvement. He had evidence of acute kidney injury that resolved with IV fluids. Patient was much improved at time of discharge. He was able to tolerate a regular consistency diet. He will follow-up with his primary care doctor within 1 week. Physical Exam Narrative Physical exam: General: Alert, Oriented x3, Cooperative, No apparent distress HEENT: Atraumatic Oral: Moist Mucosa Neck: Supple Lungs: Clear to auscultation Cardiovascular: HS I+II, regular, no murmurs Abdomen: Bowel Sounds Present, Soft, Non Tender Extremities: No edema Skin: No rashes, No breakdown Neurological: Grossly intact Psych/Mental Status: Appropriate Weight / BMI Weight Weight: 85.9 kg Body Mass Index (BMI) 27.1 ABG / Lab / Microbiology Data Result Diagrams: 07/18/22 05:45 07/18/22 05:45 Laboratory: Laboratory Results - last 24 hr 07/17/22 11:52: POC Glucose 285 H 07/17/22 16:59: POC Glucose 231 H 07/17/22 21:24: POC Glucose 297 H 07/18/22 05:45: WBC 8.2, RBC 4.04 L, Hgb 12.7 L, Hct 38.0 L, MCV 94.1 H, MCH 31.4, MCHC 33.4, RDW Std Deviation 43.8, RDW Coeff of Armin 12.7, Plt Count 169, MPV 9.9, Immature Gran % (Auto) 0.400, Neut % (Auto) 59.8, Lymph % (Auto) 28.9, [place] % (Auto) 8.1, Eos % (Auto) 2.3, Baso % (Auto) 0.5, Absolute Neuts (auto) 4.9, Absolute Lymphs (auto) 2.36, Nucleated RBC % 0 07/18/22 05:45: Sodium 137, Potassium 4.1, Chloride 106, Carbon Dioxide 26.0, Anion Gap 5, BUN 14, Creatinine 1.02, Estim Creat Clear Calc 82.50, Est GFR (MDRD) Af Amer 97, Est GFR (MDRD) Non-Af 80, BUN/Creatinine Ratio 13.7, Glucose 162 H, Calcium 9.3, Magnesium 1.8, Total Bilirubin 0.60, AST 14 L, ALT 19, Alkaline Phosphatase 60, Total Protein 7.4, Albumin 3.6, Globulin 3.8, Albumin/Globulin Ratio 0.9 07/18/22 06:14: POC Glucose 173 H D/C Instructions Discharge Diet: Low fat / Low cholesterol, 2000 Calorie Control Diet and 2000 mg Sodium Diet Meaningful Use Info Meaningful Use Diagnoses (Choose all that apply): None applicable Discharge Plan Admission Admit Date/Time: 07/13/22 09:20 Primary Reason for Your Visit: Acute pancreatitis Attending Provider: Mia aCrr Primary Care Provider: Lobito Maldonado Consulting Providers: Lazaro Chin ; Roxana Cox Instructions Additional Instructions / Restrictions: Continue to keep yourself hydrated. Follow-up with your primary care doctor within 1 week. Discharge Orders/Prescriptions Prescriptions: Continued amitriptyline 25 mg tablet 25 mg PO QHS gabapentin 300 mg capsule 300 mg PO BID nitroglycerin 0.4 MG tablet 0.4 mg sublingual Q5M PRN (Reason: Chest Pain) cholecalciferol (vitamin D3) 5,000 capsule 1 cap PO DAILY insulin glargine 100 UNIT/ML solution 10 unit SQ QHS latanoprost 0.005 % drops 1 drp EACH EYE QHS tamsulosin 0.4 mg Capsule 0.4 mg PO DAILY pantoprazole 40 mg Tablet,Delayed Release (Dr/Ec) 40 mg PO DAILY pravastatin 40 mg Tablet 60 mg PO QHS magnesium oxide 400 mg (241.3 mg magnesium) tablet 400 mg PO BID lactulose 10 gram/15 mL solution 10 g PO DAILY metformin 500 MG tablet 500 mg PO BID Qty: 0 0RF aspirin 81 mg Tablet,Delayed Release (Dr/Ec) 81 mg PO DAILY fluticasone propionate [Flonase Allergy Relief] 50 mcg/actuation [place],Suspension 2 spray INTRANASAL DAILY Rx Instructions: administer into each nostril escitalopram oxalate 10 mg tablet 10 mg PO DAILY levetiracetam 500 mg tablet 500 mg PO BID amlodipine 10 mg tablet 10 mg PO DAILY loratadine 10 MG capsule 10 mg PO DAILY omega-3 fatty acids-fish oil 684-1,200 mg Capsule,Delayed Release(Dr/Ec) 2 cap PO DAILY hydrochlorothiazide 25 mg tablet 25 mg PO DAILY Qty: 30 11RF ursodiol 250 mg tablet 250 mg PO BID Qty: 180 1RF No Action losartan 25 mg tablet 25 mg PO DAILY Referrals / Follow Up: Lobito Maldonado MD [Primary Care Provider] - In 1 Week Disposition Disposition (needs filled in before D/C Order can be placed): Home, Self Care Charges/Coding Visit Charges Inpatient E&M: 45429 Disch Hosp
[2022-07-18 11:57] VITALS: BP 136/89; PULSE 56; RESP 16; TEMP 36.8; O2SAT 96
[2022-07-18 11:58] VITALS: BP 136/89; PULSE 56; RESP 16; TEMP 36.8; O2SAT 96
[2022-07-18 12:16] LABS: Bedside Glucose 232 mg/dL (74-106)
== END 2022-07-18 14:42 | disposition home or self-care (01) | DRG 439 ==
LOC: ED 04:48 → MS3 04:53
PROVIDERS: Internal Medicine; Admitting Provider Hospitalist; Emergency Provider Emergency Medicine; PCP Internal Medicine; Visit Provider Internal Medicine
DX: K85.90 Acute pancreatitis without necrosis or infection, unspecified (principal); E87.1 Hypo-osmolality and hyponatremia; G40.409 Other generalized epilepsy and epileptic syndromes, not intractable, without status epilepticus; E11.42 Type 2 diabetes mellitus with diabetic polyneuropathy; G40.909 Epilepsy, unspecified, not intractable, without status epilepticus; Z79.4 Long term (current) use of insulin; E11.65 Type 2 diabetes mellitus with hyperglycemia; K86.1 Other chronic pancreatitis; F10.21 Alcohol dependence, in remission; I10 Essential (primary) hypertension; E78.5 Hyperlipidemia, unspecified; K21.9 Gastro-esophageal reflux disease without esophagitis; G89.29 Other chronic pain; Z23 Encounter for immunization; Z79.82 Long term (current) use of aspirin; Z87.891 Personal history of nicotine dependence
CPT/HCPCS: 36415; 74177; 80048; 80053; 80076; 82436; 82962; 83690; 83735; 83930; 83935; 84133; 84300; 85025; 99285; G0008; J7030; J7120; Q9967; 90686; A4216; J2405; J3490

== ENCOUNTER → 2022-08-08 | Outpatient (CLI) | payer MEDICARE, MEDICAID, SELFPAY ==
[2022-08-11 20:08] LABS: Albumin 4.3 g/dL (2.9-4.4); Alpha-1-Globulins 0.2 g/dL (0.0-0.4); Alpha-2-Globulins 0.7 g/dL (0.4-1.0); Free Kappa Light Chains 37.3 mg/L (3.3-19.4); Free Lambda Light Chains 22.1 mg/L (5.7-26.3); Gamma Globulin 1.1 g/dL (0.4-1.8); Immunoglobulin A 340 mg/dL (90-386); Immunoglobulin G 1154 mg/dL (603-1613); Immunoglobulin M 91 mg/dL (20-172); PROEL- TOTAL PROTEIN 7.7 g/dL (6.0-8.5)
[2022-08-11 21:01] LABS: KEPPRA (LEVETIRACETAM) 10.6 ug/mL (10.0-40.0)
== END | disposition home or self-care (01) ==
PROVIDERS: PCP Internal Medicine; Referring Provider Psychiatry & Neurology Neurology; Visit Provider Psychiatry & Neurology Neurology
DX: G40.909 Epilepsy, unspecified, not intractable, without status epilepticus (principal); G62.9 Polyneuropathy, unspecified
CPT/HCPCS: 36415; 80177; 82140; 82784; 83883; 84165; 86334; 86335

== ENCOUNTER 2022-09-06 08:16 | Inpatient (IN) | payer MEDICARE, MEDICAID, SELFPAY ==
[2022-09-06] VITALS (9 sets, daily range): BP systolic 119–140; BP diastolic 80–94; PULSE 84–128; RESP 16–18; TEMP 36.6–37.1; O2SAT 97–99; BMI 27.1; BMI 26.1
--- NOTE | 2022-09-06 08:55 | ED.VIS.GI ---
HPI HPI - GI History of Present Illness Chief Complaint: Abd Pain Narrative Narrative: 57-year-old male past medical history of chronic pancreatitis, hyperlipidemia, hypertension, diabetes, presents with epigastric pain similar to his previous pancreatitis. He states has been ongoing for the last 2 days. Trying to eat light so as not to aggravate his stomach. He states he ate a turkey sandwich a day and a half ago and became nauseated with epigastric pain. He is also taking a stool softener. He has not vomited. He denies any fevers or chills. No other symptoms but he feels mildly dehydrated since he has not been eating or drinking as much because even water makes his stomach queasy. He is concerned that he has pancreatitis again. [facility] Medical History Acute pancreatitis Alcohol abuse Anxiety and depression Cancer Cerebrovascular disease Chronic hip pain Chronic pain Constipation Diabetes Diabetes mellitus type 2 in nonobese Essential (primary) hypertension Family history of cerebral aneurysm Former tobacco use Gastric ulcer GERD (gastroesophageal reflux disease) GERD (gastroesophageal reflux disease) GI bleed Glaucoma Hyperlipidemia Neck pain Other generalized epilepsy and epileptic syndromes, not intractable, without status epilepticus Pancreatitis Polyneuropathy PSA elevation PTSD (post-traumatic stress disorder) Seizure disorder TIA (transient ischemic attack) Type 2 diabetes mellitus Vision loss of left eye Vision loss of right eye Home Medications nitroglycerin 0.4 mg sublingual tablet 0.4 mg sublingual Q5M PRN Chest Pain 07/15/13 [History Last Taken 08/22/15] amitriptyline 25 mg tablet 25 mg PO QHS depression 07/03/18 [History Last Taken 09/05/22] cholecalciferol (vitamin D3) 125 mcg (5,000 unit) capsule 1 cap PO DAILY supplement 11/09/18 [History Last Taken 09/06/22] hydrochlorothiazide 25 mg tablet 25 mg PO DAILY blood pressure/heart #30 tabs 06/05/20 [Rx Last Taken 09/06/22] gabapentin 300 mg capsule 300 mg PO BID nerve pain 10/06/20 [History Last Taken 09/05/22] insulin glargine 100 unit/mL subcutaneous solution (Lantus U-100 Insulin) 10 unit SQ QHS diabetes 12/30/20 [History Last Taken 09/04/22] latanoprost 0.005 % eye drops 1 drp EACH EYE QHS glaucoma 12/07/21 [History Last Taken 09/05/22] lactulose 10 gram/15 mL oral solution 10 g PO DAILY constipation 02/27/22 [History Last Taken 09/04/22] magnesium oxide 400 mg (241.3 mg magnesium) tablet 400 mg PO BID supplement 02/27/22 [History Last Taken 09/06/22] pantoprazole 40 mg tablet,delayed release 40 mg PO DAILY gerd 02/27/22 [History Last Taken 09/06/22] pravastatin 40 mg tablet 60 mg PO QHS cholesterol 02/27/22 [History Last Taken 09/05/22] tamsulosin 0.4 mg capsule 0.4 mg PO QHS prostate 02/27/22 [History Last Taken 09/05/22] metformin 500 mg tablet 500 mg PO BID diabetes #0 tabs 03/04/22 [Rx Last Taken 09/06/22] ursodiol 250 mg tablet 250 mg PO BID liver fibrosis #180 tabs 04/19/22 [Rx Last Taken 09/06/22] aspirin 81 mg tablet,delayed release 81 mg PO DAILY heart health 07/04/22 [History Last Taken 09/06/22] escitalopram oxalate 10 mg tablet 10 mg PO DAILY depression 07/04/22 [History Last Taken 09/06/22] fluticasone propionate 50 mcg/actuation nasal spray,suspension (Flonase Allergy Relief) 2 spray intranasal DAILY allergies 07/04/22 [History Last Taken 09/04/22] loratadine 10 mg capsule 10 mg PO DAILY allergies 07/04/22 [History Last Taken 09/06/22] losartan 25 mg tablet 25 mg PO DAILY blood pressure 07/04/22 [History Last Taken 09/06/22] omega-3 fatty acids-fish oil 684 mg-1,200 mg capsule,delayed release 2 cap PO DAILY supplement 07/04/22 [History Last Taken 09/06/22] amlodipine 10 mg tablet 10 mg PO DAILY blood pressure #90 tabs 07/27/22 [Rx Last Taken 09/06/22] levetiracetam 500 mg tablet 500 mg PO BID seizures #60 tabs 08/08/22 [Rx Last Taken 09/06/22] acetaminophen 325 mg tablet 650 mg PO Q6H PRN Pain 09/06/22 [History Last Taken Unknown] naproxen 500 mg tablet 500 mg PO BID PRN Pain 09/06/22 [History Last Taken Unknown] pravastatin 20 mg tablet 20 mg PO QHS cholesterol 09/06/22 [History Last Taken 09/05/22] simethicone 80 mg chewable tablet (Gas Relief 80 (simethicone)) 80 mg PO DAILY PRN gas relief 09/06/22 [History Last Taken Unknown] Allergy/AdvReac Type Severity Reaction Status Date / Time lisinopril Allergy Angioedema Verified 09/06/22 08:18 cyclobenzaprine AdvReac Severe Skin Verified 09/06/22 08:18 crawling hydrocodone bitartrate AdvReac Itching Verified 09/06/22 08:18 [From Vicodin] hydromorphone [From Dilaudid] AdvReac Itching Verified 09/06/22 08:18 morphine AdvReac Itching Verified 09/06/22 08:18 tramadol AdvReac Itching Verified 09/06/22 08:18 Family History Mother Heart disease Sister Cerebral aneurysm Surgical History History of cholecystectomy (12/2013) History of left heart catheterization (10/31/11) Social History Smoking Status: Former smoker Tobacco: How many years used: 7 Electronic Cigarette Use: not used alcohol intake: current alcohol intake frequency: holidays/special occasions only Alcohol type: beer details: states a couple beers every now on then, does not have daily substance use type: does not use caffeine: No robbin/latter-day: Sabianist seatbelt use: always ROS ROS ED ROS Narrative Constitutional: No fever, no chills. HEENT: No sore throat. No neck pain. No loss of vision. No rhinorrhea. Cardiovascular: No chest pain. No palpitations. No pedal edema. Respiratory: No cough, no shortness of breath. Abdominal: Epigastric abdominal pain. Positive nausea. No vomiting. Loose stool, but taking stool softeners. Genitourinary: No dysuria. No hematuria. Musculoskeletal: No myalgias. No arthralgias. Neurologic: No headaches. No dizziness. No lightheadedness. Skin: No rash. No change in color. Psychiatric: No depression. No anxiety. EXAM Physical Exam Narrative Exam Narrative: Afebrile. Vital signs noted. HEENT: Normocephalic. Atraumatic. PERRL, EOMI. Neck soft and supple. No point tenderness or step off. Cardiovascular: Positive tachycardia, no murmurs, rubs, or gallops appreciated. Respiratory: No tachypnea. Lungs clear to auscultation bilaterally. Gastrointestinal: Abdomen soft, mild tenderness in epigastrium, with normoactive bowel sounds. No rebound or guarding. Neurological: Awake. Alert. Nonfocal, nonlateralizing. Skin: No rash. Normal color. No pallor. Musculoskeletal: No pedal edema. Full range of motion extremities. Const Vital Signs: 09/06/22 08:16 09/06/22 08:49 09/06/22 10:41 Temperature 98.4 F 98.4 F Temperature Source Temporal Temporal Pulse Rate 128 H 128 H 97 Respiratory Rate 18 18 18 Blood Pressure 135/93 H 135/93 H 140/94 H Blood Pressure Mean 107 107 109 Pulse Ox 99 99 97 Oxygen Delivery Method Room Air Room Air Room Air MDM MDM MDM Narrative Medical decision making narrative: Comprehensive work-up was pursued. He was bolused normal saline 1 L intravenously. He was also administered ondansetron for his nausea. I will check a CBC, CMP, and lipase along with urinalysis. CBC shows slightly elevated white count of 12.1 with hemoglobin of 15, normal hematocrit of 43. Platelet count 200. Sodium slightly low at 133 with a chloride of 97 consistent with mild dehydration. Slightly elevated creatinine of 1.49 but normal BUN of 11. LFTs are grossly unremarkable with a normal AST and normal ALT but of significance his lipase is elevated at 1507. He was given Dilaudid which she has tolerated previously for analgesia. Urinalysis is negative for infection. Given his acute pancreatitis, he will be made n.p.o., and patient will be discussed with the hospitalist for admission. I discussed the patient with Dr. Araujo. He will be admitted to the medical/surgical floor. Patient is in stable condition. Lab Data Attestation: I reviewed the patient's lab results. Labs: Laboratory Results - last 24 hr 09/06/22 09/06/22 09/06/22 08:40 08:47 08:47 WBC 12.1 H RBC 4.71 Hgb 15.0 Hct 43.0 MCV 91.3 MCH 31.8 MCHC 34.9 RDW Std Deviation 42.5 RDW Coeff of Arimn 12.5 Plt Count 200 MPV 9.7 Immature Gran % (Auto) 0.300 Neut % (Auto) 75.9 H Lymph % (Auto) 16.5 L Jew[place] % (Auto) 6.2 Eos % (Auto) 0.5 Baso % (Auto) 0.6 Absolute Neuts (auto) 9.2 H Absolute Lymphs (auto) 1.99 Nucleated RBC % 0 Sodium 133 L Potassium 3.6 Chloride 97 L Carbon Dioxide 24.0 Anion Gap 12 BUN 11 Creatinine 1.49 H Estim Creat Clear Calc 56.48 Est GFR (MDRD) Af Amer 62 Est GFR (MDRD) Non-Af 52 L BUN/Creatinine Ratio 7.4 L Glucose 216 H Calcium 9.5 Total Bilirubin 1.30 H AST 16 ALT 22 Alkaline Phosphatase 67 Total Protein 8.5 H Albumin 4.4 Globulin 4.1 Albumin/Globulin Ratio 1.1 Lipase 1507 H Urine Color Yellow Urine Clarity Clear Urine pH 6.0 Ur Specific [place] 1.010 Urine Protein 100 H Urine Glucose (UA) Normal Urine Ketones Negative Urine Occult Blood 10 H Urine Nitrite Negative Urine Bilirubin Negative Urine Urobilinogen Normal Ur Leukocyte Esterase 25 H Urine RBC 0 SEEN Urine WBC 0 SEEN Ur Squamous Epith Cells 0 SEEN Urine Bacteria 0 SEEN Urine Mucus 0 SEEN Discharge Plan Dx/Rx/DC Orders Clinical Impression: Diabetes, Hyperlipidemia, Acute pancreatitis Disposition Disposition: Acute Care Hospital [facility]
[2022-09-06 09:01] LABS: Bacteria 0 SEEN /hpf (None Seen); Mucous, Urine 0 SEEN /hpf (<or=2+); Red Blood Cells-Urine 0 SEEN /hpf (0-5); Squamous Epithelial Cells - UA 0 SEEN /hpf (0-5); White Blood Cells 0 SEEN /hpf (0-5)
[2022-09-06] MEDS: 0.9% Normal Saline 1,000 ML 1000 ML IV (09:02)
[2022-09-06] MEDS: Ondansetron 4 MG/2 ML Vial IV ×2 (09:02→15:10)
[2022-09-06 09:04] LABS: Color, Urine Yellow (Yellow); Glucose, Dipstick Normal (Normal); Ketone-Dipstick Negative (Negative); Leukocyte Esterase-Dipstick 25 /ul (Negative); Nitrite-Dipstick Negative (Negative); Occult Blood-Urine 10 /ul (Negative); Protein-Dipstick 100 mg/dl (Negative); Urine Bilirubin Dipstick Negative (Negative); Urine Clarity Clear (Clear); Urine Urobilinogen Normal (Normal)
[2022-09-06 09:05] LABS: Absolute Lymphocyte Count 1.99 X10^3/uL (0.83-4.51); Absolute Neutrophil Count 9.2 X10^3/uL (2.0-7.7); Basophil# 0.07 X10^3/uL; Basophil% 0.6 % (0-1); Eosinophil# 0.06 X10^3/uL; Eosinophils% 0.5 % (0-5); Lymphocyte # 1.99 X10^3/ul (0.83-4.51); Lymphocyte % 16.5 % (19-41); Mean Corp Hgb Conc 34.9 g/dL (32-36); Mean Corpuscular Hgb 31.8 pg (27.0-32.0); Mean Corpuscular Volume 91.3 fL (80-94); Mean Platelet Vol. 9.7 fl (6.2-12.0); Monocyte# 0.75 X10^3/uL; Monocyte% 6.2 % (0-10); NRBC Flagged by Analyzer 0 % (0-5); Neutrophil # 9.15 X10^3/uL (2.7-7.7); Neutrophil % 75.9 % (47-70); Platelet Count 200 K/mm3 (150-450); RBC Distribution Width CV 12.5 % (11.6-14.6); RBC Distribution Width SD 42.5 fl (35.1-43.9); Red Blood Count 4.71 M/mm3 (4.6-6.2); White Blood Count 12.1 K/mm3 (4.4-11.0)
[2022-09-06 09:21] LABS: ALB/GLOB Ratio 1.1 RATIO (0.9-2.4); AST(SGOT) 16 U/L (15-37); Alanine Aminotransfer ALT/SGPT 22 U/L (16-61); Albumin, Serum 4.4 g/dL (3.2-5.0); Alkaline Phosphatase 67 U/L (45-117); Anion Gap 12 (5-15); BUN 11 mg/dL (7-18); BUN/Creat Ratio 7.4 RATIO (10-20); Calcium,Total 9.5 mg/dL (8.5-10.1); Chloride 97 mmol/L (98-107); Creatinine, Serum 1.49 mg/dL (0.70-1.30); EST Glomerular Filtration Rate 52 mL/min (>60); Est Glom Filt Rate - Afr Amer 62 mL/min (>60); Estimated Creatinine Clearance 56.48 ml/min; Globulin 4.1 g/dL (2.2-4.2); Glucose 216 mg/dL (74-106); Lipase 1507 U/L (73-393); Potassium 3.6 mmol/L (3.5-5.1); Protein, Total 8.5 g/dL (6.4-8.2); Sodium Level 133 mmol/L (136-145)
[2022-09-06] MEDS: DiphenhydrAMINE 50 MG/ML Syringe 25 MG IV ×2 (10:41→22:25)
[2022-09-06] MEDS: HYDROmorphone 1 MG/ML Syringe IV (10:42)
--- NOTE | 2022-09-06 11:33 | PCM.HP.STD ---
HPI - General General Date of Admission: 09/06/22 Date of Service: 09/06/22 Chief Complaint: Abdominal pain like previous pancreatitis pain for the past 2 days HPI Narrative BRANDON WELLER, is a 57 M with history of chronic alcoholic pancreatitis came to ED for upper abdominal pain for last 2 days. Patient was last admitted in June for similar pain, acute pancreatitis. Patient has nausea but denies any vomiting. Patient also had 1 time, small amount bright blood in the stool about 3 days ago. He has history of chronic peptic ulcer but denies any major GI hemorrhage which required hospital admission. He described abdominal pain as 8/10 in intensity, epigastric and RUQ in location with radiation to the back. No aggravating or relieving factor. Patient ate turkey sandwich about 2 days ago and felt nauseated and abdominal pain. No fever or chills. Patient stated his last drink was in June before previous admission but when I pressed hard he excepted that he drinks sometimes [employer] light. Vitals in ED reviewed. Patient was tachycardic, heart rate 128 in triage but got better with IV fluid normal saline resuscitation in ED Labs reviewed and discussed in assessment plan [facility] Medical History Acute pancreatitis Alcohol abuse Anxiety and depression Cancer Cerebrovascular disease Chronic hip pain Chronic pain Constipation Diabetes Diabetes mellitus type 2 in nonobese Essential (primary) hypertension Family history of cerebral aneurysm Former tobacco use Gastric ulcer GERD (gastroesophageal reflux disease) GERD (gastroesophageal reflux disease) GI bleed Glaucoma Hyperlipidemia Neck pain Other generalized epilepsy and epileptic syndromes, not intractable, without status epilepticus Pancreatitis Polyneuropathy PSA elevation PTSD (post-traumatic stress disorder) Seizure disorder TIA (transient ischemic attack) Type 2 diabetes mellitus Vision loss of left eye Vision loss of right eye Home Medications nitroglycerin 0.4 mg sublingual tablet 0.4 mg sublingual Q5M PRN Chest Pain 07/15/13 [History Last Taken 08/22/15] amitriptyline 25 mg tablet 25 mg PO QHS depression 07/03/18 [History Last Taken 09/05/22] cholecalciferol (vitamin D3) 125 mcg (5,000 unit) capsule 1 cap PO DAILY supplement 11/09/18 [History Last Taken 09/06/22] hydrochlorothiazide 25 mg tablet 25 mg PO DAILY blood pressure/heart #30 tabs 06/05/20 [Rx Last Taken 09/06/22] gabapentin 300 mg capsule 300 mg PO BID nerve pain 10/06/20 [History Last Taken 09/05/22] insulin glargine 100 unit/mL subcutaneous solution (Lantus U-100 Insulin) 10 unit SQ QHS diabetes 12/30/20 [History Last Taken 09/04/22] latanoprost 0.005 % eye drops 1 drp EACH EYE QHS glaucoma 12/07/21 [History Last Taken 09/05/22] lactulose 10 gram/15 mL oral solution 10 g PO DAILY constipation 02/27/22 [History Last Taken 09/04/22] magnesium oxide 400 mg (241.3 mg magnesium) tablet 400 mg PO BID supplement 02/27/22 [History Last Taken 09/06/22] pantoprazole 40 mg tablet,delayed release 40 mg PO DAILY gerd 02/27/22 [History Last Taken 09/06/22] pravastatin 40 mg tablet 60 mg PO QHS cholesterol 02/27/22 [History Last Taken 09/05/22] tamsulosin 0.4 mg capsule 0.4 mg PO QHS prostate 02/27/22 [History Last Taken 09/05/22] metformin 500 mg tablet 500 mg PO BID diabetes #0 tabs 03/04/22 [Rx Last Taken 09/06/22] ursodiol 250 mg tablet 250 mg PO BID liver fibrosis #180 tabs 04/19/22 [Rx Last Taken 09/06/22] aspirin 81 mg tablet,delayed release 81 mg PO DAILY heart health 07/04/22 [History Last Taken 09/06/22] escitalopram oxalate 10 mg tablet 10 mg PO DAILY depression 07/04/22 [History Last Taken 09/06/22] fluticasone propionate 50 mcg/actuation nasal spray,suspension (Flonase Allergy Relief) 2 spray intranasal DAILY allergies 07/04/22 [History Last Taken 09/04/22] loratadine 10 mg capsule 10 mg PO DAILY allergies 07/04/22 [History Last Taken 09/06/22] losartan 25 mg tablet 25 mg PO DAILY blood pressure 07/04/22 [History Last Taken 09/06/22] omega-3 fatty acids-fish oil 684 mg-1,200 mg capsule,delayed release 2 cap PO DAILY supplement 07/04/22 [History Last Taken 09/06/22] amlodipine 10 mg tablet 10 mg PO DAILY blood pressure #90 tabs 07/27/22 [Rx Last Taken 09/06/22] levetiracetam 500 mg tablet 500 mg PO BID seizures #60 tabs 08/08/22 [Rx Last Taken 09/06/22] acetaminophen 325 mg tablet 650 mg PO Q6H PRN Pain 09/06/22 [History Last Taken Unknown] naproxen 500 mg tablet 500 mg PO BID PRN Pain 09/06/22 [History Last Taken Unknown] pravastatin 20 mg tablet 20 mg PO QHS cholesterol 09/06/22 [History Last Taken 09/05/22] simethicone 80 mg chewable tablet (Gas Relief 80 (simethicone)) 80 mg PO DAILY PRN gas relief 09/06/22 [History Last Taken Unknown] Allergy/AdvReac Type Severity Reaction Status Date / Time lisinopril Allergy Angioedema Verified 09/06/22 08:18 cyclobenzaprine AdvReac Severe Skin Verified 09/06/22 08:18 crawling hydrocodone bitartrate AdvReac Itching Verified 09/06/22 08:18 [From Vicodin] hydromorphone [From Dilaudid] AdvReac Itching Verified 09/06/22 08:18 morphine AdvReac Itching Verified 09/06/22 08:18 tramadol AdvReac Itching Verified 09/06/22 08:18 Family History Mother Heart disease Sister Cerebral aneurysm Surgical History History of cholecystectomy (12/2013) History of left heart catheterization (10/31/11) Social History Smoking Status: Former smoker Tobacco: How many years used: 7 Electronic Cigarette Use: not used alcohol intake: current alcohol intake frequency: holidays/special occasions only Alcohol type: beer details: states a couple beers every now on then, does not have daily substance use type: does not use caffeine: No robbin/zoroastrianism: Sikh seatbelt use: always ROS ROS Narrative Constitutional: Reports fatigue and weakness. Severe abdominal pain. HEENT: Reports systems reviewed and no addt'l complaints, except as documented Respiratory/Chest: Denies chest pain, shortness of breath at rest or with exertion Gastrointestinal: As described in HPI. Denies jaundice Genitourinary: Denies burning urination or new urinary tract symptoms Musculoskeletal: Mild chronic joint pain and arthritis. Neurologic: Denies seizure-like activity. No new focal weakness or numbness tingling. skin: No ulcer. No rash Endocrinology: Reports systems reviewed and no addt'l complaints, except as documented Hematologic/Lymphatic: Reports systems reviewed and no addt'l complaints, except as documented Rest 14 ROS are negative except as mentioned in HPI Vital Signs Vital Signs Vital Signs: 09/06/22 08:16 09/06/22 08:49 09/06/22 10:41 Temperature 98.4 F 98.4 F Temperature Source Temporal Temporal Pulse Rate 128 H 128 H 97 Respiratory Rate 18 18 18 Blood Pressure 135/93 H 135/93 H 140/94 H Blood Pressure Mean 107 107 109 Pulse Ox 99 99 97 Oxygen Delivery Method Room Air Room Air Room Air 09/06/22 11:26 Temperature 98.7 F Temperature Source Temporal Pulse Rate 97 Respiratory Rate 18 Blood Pressure 140/94 H Blood Pressure Mean 109 Pulse Ox 97 Oxygen Delivery Method Room Air Weight Weight: 189 lb Body Mass Index (BMI) 27.1 Physical Exam Narrative Physical exam General: Alert, Oriented x3, Cooperative HEENT: Atraumatic, PERRLA, EOMI, Normocephalic Oral: Oral mucosa dry. No Gingival or Mucosal Lesions/ Ulcerations Neck: Supple, No JVD, Negative Carotid Bruits Lungs: Air entry diminished in bilateral lung bases. No crepitation/rhonchi Cardiovascular: Regular rate, Regular Rhythm, Normal S1, Normal S2, No murmurs Abdomen: Bowel Sounds sluggish. Tenderness present over epigastrium, right upper quadrant, right and left upper lumbar regions. Mild guarding but no rigidity. No palpable mass : No renal angle tenderness. No suprapubic tenderness. Extremities: No edema, Capillary Refill Less than 3 Seconds Skin: No rashes, No breakdown Musculoskeletal: No Tenderness to Palpation of Joints or Extremities Neurological: Cranial nerves II-XII grossly intact, DTR 2+/4, Neuro grossly intact Psych/Mental Status: Flat affect. Results Lab / Micro Data Result Diagrams: 09/06/22 08:47 09/06/22 08:47 Labs: Laboratory Results - last 24 hr 09/06/22 08:40: Urine Color Yellow, Urine Clarity Clear, Urine pH 6.0, Ur Specific [place] 1.010, Urine Protein 100 H, Urine Glucose (UA) Normal, Urine Ketones Negative, Urine Occult Blood 10 H, Urine Nitrite Negative, Urine Bilirubin Negative, Urine Urobilinogen Normal, Ur Leukocyte Esterase 25 H, Urine RBC 0 SEEN, Urine WBC 0 SEEN, Ur Squamous Epith Cells 0 SEEN, Urine Bacteria 0 SEEN, Urine Mucus 0 SEEN 09/06/22 08:47: WBC 12.1 H, RBC 4.71, Hgb 15.0, Hct 43.0, MCV 91.3, MCH 31.8, MCHC 34.9, RDW Std Deviation 42.5, RDW Coeff of Armin 12.5, Plt Count 200, MPV 9.7, Immature Gran % (Auto) 0.300, Neut % (Auto) 75.9 H, Lymph % (Auto) 16.5 L, [place] % (Auto) 6.2, Eos % (Auto) 0.5, Baso % (Auto) 0.6, Absolute Neuts (auto) 9.2 H, Absolute Lymphs (auto) 1.99, Nucleated RBC % 0 09/06/22 08:47: Sodium 133 L, Potassium 3.6, Chloride 97 L, Carbon Dioxide 24.0, Anion Gap 12, BUN 11, Creatinine 1.49 H, Estim Creat Clear Calc 56.48, Est GFR (MDRD) Af Amer 62, Est GFR (MDRD) Non-Af 52 L, BUN/Creatinine Ratio 7.4 L, Glucose 216 H, Calcium 9.5, Total Bilirubin 1.30 H, AST 16, ALT 22, Alkaline Phosphatase 67, Total Protein 8.5 H, Albumin 4.4, Globulin 4.1, Albumin/Globulin Ratio 1.1, Lipase 1507 H Assessment & Plan Assessment/Plan (1) Acute pancreatitis: QUALIFIERS: Pancreatitis type: unspecified pancreatitis type Acute pancreatitis complication: unspecified Qualified Code(s): K85.90 - Acute pancreatitis without necrosis or infection, unspecified PLAN: Plan This is 57-year-old gentleman is being admitted for onset of severe abdominal pain along with elevated lipase suggestive of acute on recurrent pancreatitis 1. Acute on recurrent pancreatitis: Patient is being admitted on [facility] floor. Labs reviewed shows mild leukocytosis mainly Polymox 76%. Hematocrit 43%. Platelet count 200,000. Lipase 1507. Liver chemistry in normal range, TB 1.3. A/G ratio 1 :1. UA is negative. Continue PPI. Patient follows Dr. Santamaria. Was last seen by GI OFFENSIVE COORDINATOR [place] on July 04, 2022 and patient was sent to ED for admission. Patient is started on IV fluid normal saline plus KCl at 200 mL/h. Ethyl alcohol negative. GGT 48. Serum magnesium 2.0, phosphorus 2.9. 2. Mild hyponatremia: During previous admission patient also had hyponatremia, sodium 128 which got resolved. This time admitted with 133. On IV fluid normal saline as mentioned above. 3. Chronic alcohol use disorder: Patient is still drinks cold beer although he cut back. He said it is hard to quit alcohol but is trying best. Thiamine and folic acid supplementation. 4. Type 2 diabetes mellitus on Accu-Chek AC at bedtime coverage below sliding scale. Glucose is 216. Started on Lantus 10 units daily. Hold metformin. 5. Hypertension: Patient blood pressure is systolic 130 mmHg. 130 patient on HCTZ, losartan 25 mg and amlodipine 10 mg daily at home. Hold HCTZ and losartan. Amlodipine continued. 6. AGA mainly due to third spacing/prerenal: Patient BUN/creatinine 11/1.49. Patient had similar presentation during previous admission with creatinine 1.43. 7. Other chronic comorbidities include history of seizure disorder: Keppra continued. DVT prophylaxis, pancreatitis is thrombogenic condition: Stool for occult blood. Lovenox 40 MG subcu daily. SCDs ordered Living will/advanced directive/end of life care: Patient does not have living will or advanced directive. After discussion of benefits/risks procedures involved with full code, DNR CC arrest and DNR CC, the patient opted for full code. Patient does want artificial life support including intubation, tube feed, ventilator and/chest compression, central venous catheter, vasopressor and DC shock if needed Total time spent in [id number] encounter in discussion of advanced directive 16 minutes. Laboratory Results 09/06/22 08:40: Urine Color Yellow, Urine Clarity Clear, Urine pH 6.0, Ur Specific [place] 1.010, Urine Protein 100 H, Urine Glucose (UA) Normal, Urine Ketones Negative, Urine Occult Blood 10 H, Urine Nitrite Negative, Urine Bilirubin Negative, Urine Urobilinogen Normal, Ur Leukocyte Esterase 25 H, Urine RBC 0 SEEN, Urine WBC 0 SEEN, Ur Squamous Epith Cells 0 SEEN, Urine Bacteria 0 SEEN, Urine Mucus 0 SEEN 09/06/22 08:47: WBC 12.1 H, RBC 4.71, Hgb 15.0, Hct 43.0, MCV 91.3, MCH 31.8, MCHC 34.9, RDW Std Deviation 42.5, RDW Coeff of Armin 12.5, Plt Count 200, MPV 9.7, Immature Gran % (Auto) 0.300, Neut % (Auto) 75.9 H, Lymph % (Auto) 16.5 L, [place] % (Auto) 6.2, Eos % (Auto) 0.5, Baso % (Auto) 0.6, Absolute Neuts (auto) 9.2 H, Absolute Lymphs (auto) 1.99, Nucleated RBC % 0 09/06/22 08:47: Sodium 133 L, Potassium 3.6, Chloride 97 L, Carbon Dioxide 24.0, Anion Gap 12, BUN 11, Creatinine 1.49 H, Estim Creat Clear Calc 56.48, Est GFR (MDRD) Af Amer 62, Est GFR (MDRD) Non-Af 52 L, BUN/Creatinine Ratio 7.4 L, Glucose 216 H, Calcium 9.5, Total Bilirubin 1.30 H, AST 16, ALT 22, Alkaline Phosphatase 67, Total Protein 8.5 H, Albumin 4.4, Globulin 4.1, Albumin/Globulin Ratio 1.1, Lipase 1507 H 09/06/22 11:30: Magnesium 2.0, GGT 48 09/06/22 11:30: Ethyl Alcohol < 3.0 09/06/22 11:30: Phosphorus 2.9 Charges/Coding Visit Charges Inpatient E&M: 54007 Subs Hosp L3 Procedures Hospitalists Procedures: 59761 Advncd Care Plan 30 Min
--- NOTE | 2022-09-06 11:34 | NURSING ---
MED SURG FELICE PANCREATITIS
[2022-09-06 11:51] LABS: GGTP 48 U/L (15-85)
[2022-09-06 11:57] LABS: Phosphorus 2.9 mg/dL (2.5-4.9)
[2022-09-06 12:34] LABS: Alcohol, Blood (Medical)-Serum < 3.0 mg/dL
[2022-09-06] MEDS: Lactated Ringers 1,000 ML 200 ML IV (13:29)
[2022-09-06] MEDS: Enoxaparin 40 MG/0.4 ML Syringe SC (13:31)
[2022-09-06] MEDS: HYDROmorphone 0.5 MG/0.5 ML SYRINGE IV ×2 (15:01→19:45)
[2022-09-06] MEDS: Potassium Chloride 40 MEQ in 0.9% Normal Saline 1,000 ML 200 MEQ IV ×2 (15:41→22:11)
[2022-09-06 15:56] LABS: Bedside Glucose 150 mg/dL (74-106)
[2022-09-06] MEDS: Insulin Glargine-YFGN 100 UNIT/ML Pen 10 UNIT SC (16:04)
[2022-09-06] MEDS: Insulin Lispro 100 UNIT/ML INSULN.PEN SC (17:26)
[2022-09-06 17:50] LABS: Bedside Glucose 161 mg/dL (74-106)
[2022-09-06] MEDS: Pravastatin 20 MG Tablet 60 MG PO (21:36)
[2022-09-06] MEDS: Gabapentin 300 MG Capsule PO (21:37)
[2022-09-06] MEDS: Ursodiol 250 MG Tablet PO (21:37)
[2022-09-06] MEDS: oxyCODONE 5 MG Tablet PO (21:37)
[2022-09-06] MEDS: Magnesium Chloride 64 MG Delay Rel.Tablet 128 MG PO (21:37)
[2022-09-06] MEDS: levETIRAcetam 500 MG Tablet PO (21:37)
[2022-09-06] MEDS: Tamsulosin HCl 0.4 MG Capsule PO (21:39)
[2022-09-06] MEDS: Amitriptyline 25 MG Tablet PO (21:39)
[2022-09-06] MEDS: Latanoprost 0.005% 1 Bottle 1 DRP EACH EYE (21:41)
[2022-09-06 22:20] LABS: Bedside Glucose 151 mg/dL (74-106)
[2022-09-07] MEDS: HYDROmorphone 0.5 MG/0.5 ML SYRINGE IV ×2 (01:13→20:36)
[2022-09-07] MEDS: Insulin Lispro 100 UNIT/ML INSULN.PEN SC ×3 (01:16→10:07)
[2022-09-07 01:41] LABS: Bedside Glucose 174 mg/dL (74-106)
[2022-09-07 02:05] VITALS: BP 144/97; PULSE 94; RESP 16; TEMP 36.6; O2SAT 96
[2022-09-07] MEDS: oxyCODONE 5 MG Tablet PO ×5 (04:01→21:39)
[2022-09-07 06:26] LABS: Bedside Glucose 161 mg/dL (74-106)
[2022-09-07 06:30] LABS: Absolute Lymphocyte Count 2.37 X10^3/uL (0.83-4.51); Absolute Neutrophil Count 11.3 X10^3/uL (2.0-7.7); Basophil# 0.04 X10^3/uL; Basophil% 0.3 % (0-1); Eosinophil# 0.07 X10^3/uL; Eosinophils% 0.5 % (0-5); Hematocrit 39.6 % (40-54); Hemoglobin 13.7 g/dL (13.0-16.5); Lymphocyte # 2.37 X10^3/ul (0.83-4.51); Lymphocyte % 16.1 % (19-41); Mean Corp Hgb Conc 34.6 g/dL (32-36); Mean Corpuscular Hgb 32.1 pg (27.0-32.0); Mean Corpuscular Volume 92.7 fL (80-94); Mean Platelet Vol. 9.8 fl (6.2-12.0); Monocyte% 6.1 % (0-10); NRBC Flagged by Analyzer 0 % (0-5); Neutrophil # 11.29 X10^3/uL (2.7-7.7); Neutrophil % 76.5 % (47-70); Platelet Count 169 K/mm3 (150-450); RBC Distribution Width CV 12.5 % (11.6-14.6); RBC Distribution Width SD 42.8 fl (35.1-43.9); Red Blood Count 4.27 M/mm3 (4.6-6.2); White Blood Count 14.7 K/mm3 (4.4-11.0)
[2022-09-07 06:57] LABS: ALB/GLOB Ratio 1.1 RATIO (0.9-2.4); AST(SGOT) 11 U/L (15-37); Alanine Aminotransfer ALT/SGPT 18 U/L (16-61); Alkaline Phosphatase 62 U/L (45-117); Anion Gap 7 (5-15); BUN 9 mg/dL (7-18); BUN/Creat Ratio 9.6 RATIO (10-20); Calcium,Total 8.6 mg/dL (8.5-10.1); Chloride 104 mmol/L (98-107); Creatinine, Serum 0.94 mg/dL (0.70-1.30); EST Glomerular Filtration Rate 88 mL/min (>60); Est Glom Filt Rate - Afr Amer 107 mL/min (>60); Estimated Creatinine Clearance 89.52 ml/min; Globulin 3.8 g/dL (2.2-4.2); Glucose 156 mg/dL (74-106); Protein, Total 7.8 g/dL (6.4-8.2); Sodium Level 134 mmol/L (136-145)
[2022-09-07 08:15] VITALS: O2SAT 96
[2022-09-07 08:20] VITALS: BP 144/91; PULSE 91; RESP 16; TEMP 36.9; O2SAT 97
[2022-09-07] MEDS: Thiamine Hydrochloride 100 MG Tablet PO (08:25)
[2022-09-07] MEDS: Folic Acid 1 MG Tablet PO (08:25)
[2022-09-07] MEDS: Lactulose 20 GM/30 ML UDC 10 GM PO (08:26)
[2022-09-07] MEDS: levETIRAcetam 500 MG Tablet PO ×2 (08:26→21:41)
[2022-09-07] MEDS: Enoxaparin 40 MG/0.4 ML Syringe SC (08:27)
[2022-09-07] MEDS: Escitalopram Oxalate 10 MG Tablet PO (08:27)
[2022-09-07] MEDS: Magnesium Chloride 64 MG Delay Rel.Tablet 128 MG PO ×2 (08:27→21:40)
[2022-09-07] MEDS: amLODIPine 10 MG Tablet PO (08:28)
[2022-09-07] MEDS: Ursodiol 250 MG Tablet PO ×2 (08:28→21:41)
[2022-09-07] MEDS: Cholecalciferol (Vit D3) 125 MCG CAPSULE (5,000 UNITS) PO (08:28)
[2022-09-07 09:31] LABS: Hemoglobin A1c 6.8 % (3.8-5.6)
[2022-09-07] MEDS: Gabapentin 300 MG Capsule PO ×2 (10:05→21:39)
[2022-09-07] MEDS: Insulin Glargine-YFGN 100 UNIT/ML Pen 10 UNIT SC (10:06)
[2022-09-07 10:30] LABS: Bedside Glucose 156 mg/dL (74-106)
--- NOTE | 2022-09-07 14:57 | CASEMGMT ---
Social Work RN SAMUEL Morrow informed SW that pt has CM through [facility] [place], . The covering CM currently is also [place], . FRANKIE called covering CM to inform of pt admit to hospital. Left message with FRANKIE Clemens's contact number in case CM would need additional info or to request discharge records be faxed. BENY Fernandez
--- NOTE | 2022-09-07 15:15 | CASEMGMT ---
UZMA BAKER KICK PRESS SETTER CM to room to meet with patient for initial transition planning/care coordination assessment. UZMA BAKER introduced self and role at [facility]. Pt voices understanding and consents to assessment at this time. Pt resting in bed in no distress at this time. Pt is A/O at this time and answers all questions appropriately. Care providers, pharmacy, and demographics verified/updated at this time. PCP: Joel. Specialists: Friend-BELKYS, Dr Torres-neurologist Preferred Pharmacy: [facility]. Insurance: [employer]. Prescription Benefit: yes. LW/HCPOA: pt has not done either. He would like to come HCPOA and states he would like his sister, Lashay Ochoa, to be his HCPOA. Pt attempted to locate her phone # in his phone, but was having difficulty finding it. UZMA BAKER located a # for her from 2012 in pt's demographic hx in [employer] and read the # off to pt. He confirms this is Lashay's current phone #. He was made aware he would also need her address to complete POA paperwork. Pt gave UZMA BAKER permission to contact Lashay to obtain her address. Call placed to Lashay at this time. No answer. VM left for return call. Pt made aware, if the address is obtained prior to pt being discharged that AD can be completed while he is @ [facility]. Otherwise, pt instructed to contact FRANKIE as an OP to complete AD once he has the address. He voices understanding. LNOK: sister, Lashay Ochoa. Has 6 siblings total. No children and parents are . Living Arrangements: Pt lives alone in a multi-family unit. Pt lives in lower level with five steps to get into the home. Pt reports being I in ADLs. Transportation: Pt uses [id number] for medical appointments, bus, cab. Pt states he will need transportation to go home @ d/c. MS3 UZMA BAKER, Nikkie, and Franny DAVID, both made aware. DME: Pt states he has a functioning glucometer and supplies, scale, BP machine, and medical alert HHC/SNF: Pt denies a hx of HH or SNF stays. He has done OP therapy in the past. Flooring Sales Manager: Pt has a Flooring Sales Manager, Estela, through [employer]. Pt states no concerns with going home at time of dc. Pt states no further concerns/needs. CM to follow. Advised pt to ask CM if any further question/concerns/needs arise, voices understanding. Pt Home. Plan: Home. Pt states will need a ride home @ discharge. Pt wishes to return home and states has no concerns with going home at time of discharge. Pt states does not smoke or drink ETOH. CM to follow for home oxygen needs and any further discharge planning/needs. Pt voices no further concerns/needs at this time. Advised pt to ask for CM if any further questions/concerns/needs arise. Voices understanding. PLAN: Humza SUN RN CM
[2022-09-07 16:00] VITALS: BP 139/88; PULSE 93; RESP 15; TEMP 36.8; O2SAT 97
[2022-09-07] MEDS: DiphenhydrAMINE 50 MG/ML Syringe 12.5 MG IV ×2 (17:12→21:39)
[2022-09-07] MEDS: 0.9% Saline Lock 10 ML Syringe IV ×2 (17:14→20:36)
[2022-09-07 17:45] LABS: Bedside Glucose 87 mg/dL (74-106)
--- NOTE | 2022-09-07 19:47 | PN.HOSP_ITS ---
Subjective Subjective Follow-up for acute pancreatitis. Abdominal pain is better. No fever. No hypoxia. Patient started on clear liquid in the morning. Objective Data Objective Data Vital Signs: Vital Signs Temp Pulse Resp BP Pulse Ox O2 Del Method 98.2 F 93 15 139/88 H 97 Room Air 09/07/22 16:00 09/07/22 16:00 09/07/22 16:00 09/07/22 16:00 09/07/22 16:00 09/07/22 16:00 Oxygen Delivery Method Room Air Weight: 182 lb 0.006 oz Body Mass Index (BMI) 26.1 Intake & Output: Intake and Output for Last 24 Hours 09/05/22 09/06/22 09/07/22 23:59 23:59 23:59 Intake Total 2515.33 / 2515.33 1020 / 1020 Balance 2515.33 / 2515.33 1020 / 1020 Lab / Micro Data Result Diagrams: 09/07/22 06:15 09/07/22 06:15 Labs: Laboratory Results - last 24 hr 09/06/22 21:35: POC Glucose 151 H 09/07/22 01:16: POC Glucose 174 H 09/07/22 06:01: POC Glucose 161 H 09/07/22 06:15: WBC 14.7 H, RBC 4.27 L, Hgb 13.7, Hct 39.6 L, MCV 92.7, MCH 32.1 H, MCHC 34.6, RDW Std Deviation 42.8, RDW Coeff of Armin 12.5, Plt Count 169, MPV 9.8, Immature Gran % (Auto) 0.500, Neut % (Auto) 76.5 H, Lymph % (Auto) 16.1 L, [place] % (Auto) 6.1, Eos % (Auto) 0.5, Baso % (Auto) 0.3, Absolute Neuts (auto) 11.3 H, Absolute Lymphs (auto) 2.37, Nucleated RBC % 0 09/07/22 06:15: Sodium 134 L, Potassium 4.0, Chloride 104, Carbon Dioxide 23.0, Anion Gap 7, BUN 9, Creatinine 0.94, Estim Creat Clear Calc 89.52, Est GFR (MDRD) Af Amer 107, Est GFR (MDRD) Non-Af 88, BUN/Creatinine Ratio 9.6 L, Glucose 156 H, Calcium 8.6, Total Bilirubin 0.80, AST 11 L, ALT 18, Alkaline Phosphatase 62, Total Protein 7.8, Albumin 4.0, Globulin 3.8, Albumin/Globulin Ratio 1.1 09/07/22 06:15: Hemoglobin A1c 6.8 H 09/07/22 10:04: POC Glucose 156 H 09/07/22 17:06: POC Glucose 87 Physical Exam Narrative Physical exam General: Alert, Oriented x3, Cooperative HEENT: Atraumatic, PERRLA, EOMI, Normocephalic Oral: Oral mucosa dry. No Gingival or Mucosal Lesions/ Ulcerations Neck: Supple, No JVD, Negative Carotid Bruits Lungs: Air entry diminished in bilateral lung bases. No crepitation/rhonchi Cardiovascular: Regular rate, Regular Rhythm, Normal S1, Normal S2, No murmurs Abdomen: Bowel Sounds sluggish. Mild tenderness present over epigastrium, right upper quadrant. No guarding/rigidity. : No renal angle tenderness. No suprapubic tenderness. Extremities: No edema, Capillary Refill Less than 3 Seconds Skin: No rashes, No breakdown Musculoskeletal: No Tenderness to Palpation of Joints or Extremities Neurological: Cranial nerves II-XII grossly intact, DTR 2+/4, Neuro grossly intact Psych/Mental Status: Flat affect. Assessment & Plan Assessment/Plan (1) Acute pancreatitis: QUALIFIERS: Pancreatitis type: unspecified pancreatitis type Acute pancreatitis complication: unspecified Qualified Code(s): K85.90 - Acute pancreatitis without necrosis or infection, unspecified PLAN: Plan This is 57-year-old gentleman is being admitted for onset of severe abdominal pain along with elevated lipase suggestive of acute on recurrent pancreatitis 1. Acute on recurrent pancreatitis: Patient is being admitted on MedSurg floor. Labs reviewed shows mild leukocytosis mainly Polymox 76%. Hematocrit 43%. Platelet count 200,000. Lipase 1507. Liver chemistry in normal range, TB 1.3. A/G ratio 1 :1. UA is negative. Continue PPI. Patient follows Dr. Santamaria. Was last seen by [facility] PROFESSION[facility] [place] on July 04, 2022 and patient was sent to ED for admission. Patient is started on IV fluid normal saline plus KCl at 200 mL/h. Ethyl alcohol negative. GGT 48. Serum magnesium 2.0, phosphorus 2.9. 11/08: Improvement in abdominal pain. Started on clear liquid and advance to f ull liquid as tolerated. Patient has itching with oxycodone and Dilaudid. Benadryl ordered before opioid. 2. Mild hyponatremia: During previous admission patient also had hyponatremia, sodium 128 which got resolved. This time admitted with 133. On IV fluid normal saline as mentioned above. 09/07: Serum sodium 134 slightly better than yesterday. Continue IV fluid 3. Chronic alcohol use disorder: Patient is still drinks cold beer although he cut back. He said it is hard to quit alcohol but is trying best. Thiamine and folic acid supplementation. 4. Type 2 diabetes mellitus on Accu-Chek AC at bedtime coverage below sliding scale. Glucose is 216. Started on Lantus 10 units daily. Hold metformin. 5. Hypertension: Patient blood pressure is systolic 130 mmHg. 130 patient on HCTZ, losartan 25 mg and amlodipine 10 mg daily at home. Hold HCTZ and losartan. Amlodipine continued. 6. AGA mainly due to third spacing/prerenal: Patient BUN/creatinine 11/1.49. Patient had similar presentation during previous admission with creatinine 1.43. 7. Other chronic comorbidities include history of seizure disorder: Keppra continued. DVT prophylaxis, pancreatitis is thrombogenic condition: Stool for occult blood. Lovenox 40 MG subcu daily. SCDs ordered Living will/advanced directive/end of life care: Patient does not have living will or advanced directive. After discussion of benefits/risks procedures involved with full code, DNR CC arrest and DNR CC, the patient opted for full code. Patient does want artificial life support including intubation, tube feed, ventilator and/chest compression, central venous catheter, vasopressor and DC shock if needed Total time spent in [id number] encounter in discussion of advanced directive 16 minutes. Laboratory Results 09/06/22 21:35: POC Glucose 151 H 09/07/22 01:16: POC Glucose 174 H 09/07/22 06:01: POC Glucose 161 H 09/07/22 06:15: WBC 14.7 H, RBC 4.27 L, Hgb 13.7, Hct 39.6 L, MCV 92.7, MCH 32.1 H, MCHC 34.6, RDW Std Deviation 42.8, RDW Coeff of Armin 12.5, Plt Count 169, MPV 9.8, Immature Gran % (Auto) 0.500, Neut % (Auto) 76.5 H, Lymph % (Auto) 16.1 L, [place] % (Auto) 6.1, Eos % (Auto) 0.5, Baso % (Auto) 0.3, Absolute Neuts (auto) 11.3 H, Absolute Lymphs (auto) 2.37, Nucleated RBC % 0 09/07/22 06:15: Sodium 134 L, Potassium 4.0, Chloride 104, Carbon Dioxide 23.0, Anion Gap 7, BUN 9, Creatinine 0.94, Estim Creat Clear Calc 89.52, Est GFR (MDRD) Af Amer 107, Est GFR (MDRD) Non-Af 88, BUN/Creatinine Ratio 9.6 L, Glucose 156 H, Calcium 8.6, Total Bilirubin 0.80, AST 11 L, ALT 18, Alkaline Phosphatase 62, Total Protein 7.8, Albumin 4.0, Globulin 3.8, Albumin/Globulin Ratio 1.1 09/07/22 06:15: Hemoglobin A1c 6.8 H 09/07/22 10:04: POC Glucose 156 H 09/07/22 17:06: POC Glucose 87 Charges/Coding Visit Charges Inpatient E&M: 48310 Subs Hosp L2
[2022-09-07] MEDS: 0.9% Normal Saline 1,000 ML 150 ML IV (20:35)
[2022-09-07 21:30] VITALS: BP 128/86; PULSE 92; RESP 16; TEMP 36.8; O2SAT 98
[2022-09-07] MEDS: Pravastatin 20 MG Tablet 60 MG PO (21:39)
[2022-09-07] MEDS: Amitriptyline 25 MG Tablet PO (21:40)
[2022-09-07] MEDS: Latanoprost 0.005% 1 Bottle 1 DRP EACH EYE (21:40)
[2022-09-07] MEDS: Tamsulosin HCl 0.4 MG Capsule PO (21:40)
[2022-09-07 22:35] LABS: Bedside Glucose 136 mg/dL (74-106)
[2022-09-08] MEDS: oxyCODONE 5 MG Tablet PO ×2 (01:43→08:16)
[2022-09-08] MEDS: DiphenhydrAMINE 50 MG/ML Syringe 12.5 MG IV ×2 (01:43→08:17)
[2022-09-08 03:00] VITALS: BP 125/83; PULSE 88; RESP 16; TEMP 36.8; O2SAT 96
[2022-09-08] MEDS: 0.9% Normal Saline 1,000 ML 150 ML IV (03:25)
[2022-09-08 06:28] VITALS: O2SAT 94
[2022-09-08 06:55] LABS: Bedside Glucose 115 mg/dL (74-106)
[2022-09-08 07:17] LABS: Absolute Lymphocyte Count 2.68 X10^3/uL (0.83-4.51); Absolute Neutrophil Count 6.3 X10^3/uL (2.0-7.7); Basophil# 0.04 X10^3/uL; Basophil% 0.4 % (0-1); Eosinophil# 0.12 X10^3/uL; Eosinophils% 1.2 % (0-5); Hematocrit 36.6 % (40-54); Hemoglobin 12.2 g/dL (13.0-16.5); Lymphocyte # 2.68 X10^3/ul (0.83-4.51); Mean Corp Hgb Conc 33.3 g/dL (32-36); Mean Corpuscular Hgb 31.5 pg (27.0-32.0); Mean Corpuscular Volume 94.6 fL (80-94); Monocyte# 0.78 X10^3/uL; Monocyte% 7.8 % (0-10); NRBC Flagged by Analyzer 0 % (0-5); Neutrophil # 6.29 X10^3/uL (2.7-7.7); Neutrophil % 63.3 % (47-70); Platelet Count 153 K/mm3 (150-450); RBC Distribution Width CV 12.6 % (11.6-14.6); RBC Distribution Width SD 43.5 fl (35.1-43.9); Red Blood Count 3.87 M/mm3 (4.6-6.2); White Blood Count 9.9 K/mm3 (4.4-11.0)
[2022-09-08 07:51] LABS: ALB/GLOB Ratio 0.9 RATIO (0.9-2.4); AST(SGOT) 12 U/L (15-37); Alanine Aminotransfer ALT/SGPT 16 U/L (16-61); Albumin, Serum 3.5 g/dL (3.2-5.0); Alkaline Phosphatase 55 U/L (45-117); Anion Gap 7 (5-15); BUN 5 mg/dL (7-18); BUN/Creat Ratio 6.1 RATIO (10-20); Calcium,Total 8.4 mg/dL (8.5-10.1); Chloride 106 mmol/L (98-107); Creatinine, Serum 0.82 mg/dL (0.70-1.30); EST Glomerular Filtration Rate 102 mL/min (>60); Est Glom Filt Rate - Afr Amer 124 mL/min (>60); Estimated Creatinine Clearance 102.63 ml/min; Globulin 3.7 g/dL (2.2-4.2); Glucose 112 mg/dL (74-106); Potassium 3.6 mmol/L (3.5-5.1); Protein, Total 7.2 g/dL (6.4-8.2); Sodium Level 135 mmol/L (136-145)
[2022-09-08 08:07] VITALS: BP 136/92; PULSE 84; RESP 16; TEMP 36.6; O2SAT 98
[2022-09-08] MEDS: Ensure Clear 120 ML Liquid PO (08:16)
[2022-09-08] MEDS: Folic Acid 1 MG Tablet PO (08:17)
[2022-09-08] MEDS: Thiamine Hydrochloride 100 MG Tablet PO (08:18)
[2022-09-08] MEDS: Cholecalciferol (Vit D3) 125 MCG CAPSULE (5,000 UNITS) PO (08:18)
--- NOTE | 2022-09-08 09:02 | PCM.DC ---
Discharge Instructions Diet Discharge Diet: Soft diet (Soft bland diet for 5 days. No oily food.) and Low fat / Low cholesterol Activity Weight Bearing Status: Weight bearing as tolerated Dressing / Incision Call your doctor if you observe: Fever of 101 or Higher, Coldness, Increased Pain, Numbness or Tingling, Change in Color, Inability to urinate, Inability to have a bowel movement, Shortness of breath, Dizziness, Fainting spells, Swelling in the ankles, Chest pain, Prolonged hiccupping, Increased palpitations (irregular heartbeat), Calf discomfort and Uncontrolled pain Follow Up Care Test Results: Test results from this visit will be discussed in further detail at your follow-up appointment, if applicable. Discharge Plan Admission Admit Date/Time: 09/06/22 11:23 Primary Reason for Your Visit: Acute on recurrent pancreatitis Attending Provider: John Paul Araujo Primary Care Provider: Lobito Maldonado Discharge Orders/Prescriptions Prescriptions: New thiamine HCl (vitamin B1) [Vitamin B-1] 100 mg Tablet 100 mg PO BREAKFAST Qty: 30 0RF folic acid 1 mg Tablet 1 mg PO BREAKFAST Qty: 30 0RF Creon 12,000-38,000 -60,000 unit capsule,delayed release(DR/EC) 1 cap PO .TIDAC 30 Days Qty: 90 2RF Rx Instructions: administer with meals and/or snacks Continued amitriptyline 25 mg tablet 25 mg PO QHS gabapentin 300 mg capsule 300 mg PO BID levetiracetam 500 mg tablet 500 mg PO BID Qty: 60 6RF nitroglycerin 0.4 MG tablet 0.4 mg sublingual Q5M PRN (Reason: Chest Pain) cholecalciferol (vitamin D3) 5,000 capsule 1 cap PO DAILY insulin glargine [Lantus U-100 Insulin] 100 UNIT/ML solution 10 unit SQ QHS latanoprost 0.005 % drops 1 drp EACH EYE QHS tamsulosin 0.4 mg Capsule 0.4 mg PO QHS pantoprazole 40 mg Tablet,Delayed Release (Dr/Ec) 40 mg PO DAILY pravastatin 40 mg Tablet 60 mg PO QHS magnesium oxide 400 mg (241.3 mg magnesium) tablet 400 mg PO BID lactulose 10 gram/15 mL solution 10 g PO DAILY aspirin 81 mg Tablet,Delayed Release (Dr/Ec) 81 mg PO DAILY losartan 25 mg tablet 25 mg PO DAILY fluticasone propionate [Flonase Allergy Relief] 50 mcg/actuation [place],Suspension 2 spray INTRANASAL DAILY escitalopram oxalate 10 mg tablet 10 mg PO DAILY loratadine 10 MG capsule 10 mg PO DAILY omega-3 fatty acids-fish oil 684-1,200 mg Capsule,Delayed Release(Dr/Ec) 2 cap PO DAILY acetaminophen 325 mg Tablet 650 mg PO Q6H PRN (Reason: Pain) pravastatin 20 mg tablet 20 mg PO QHS naproxen 500 mg tablet 500 mg PO BID PRN (Reason: Pain) simethicone [Gas Relief 80 (simethicone)] 80 mg Tablet,Chewable 80 mg PO DAILY PRN (Reason: gas relief) ursodiol 250 mg tablet 250 mg PO BID Qty: 180 1RF amlodipine 10 mg tablet 10 mg PO DAILY Qty: 90 3RF Held metformin 500 MG tablet 500 mg PO BID Qty: 0 0RF Hold Instructions: Hold for 3 days hydrochlorothiazide 25 mg tablet 25 mg PO DAILY Qty: 30 11RF Hold Instructions: Hold for 3 days and start with 12.5 mg, half tablet daily. Referrals / Follow Up: Taras Santamaria DO [Med Staff - Active Staff] - Within 2 Weeks (Acute on recurrent pancreatitis) Lobito Maldonado MD [Primary Care Provider] - Disposition Disposition (needs filled in before D/C Order can be placed): Home, Self Care
--- NOTE | 2022-09-08 09:41 | CASEMGMT ---
Addendum entered by Nikkie Jay 09/08/22 11:44: Returned pt phone to him charged. Pt is aware to leave on with ringer up to not miss the call and that he will receive a call when they are here to pick him up. Pt plans to eat lunch then get dressed for dc. Pt nurse also aware. Addendum entered by Nikkie Jay 09/08/22 10:55: Pt made aware that the insurance will call his phone for poultry picking machine tender pending his tolerating a diet. Pt states his phone is . Plugged phone in at nurse station transport truck driver and placed pt application integrator phone. Addendum entered by Nikkie Jay 09/08/22 10:44: TC to [place] to set up transportation for pt, who states this needs to go through insurance. TC to insurance and transportation set up between 1 and 5pm. They will call pt phone when they arrive. This is all pending pt able to tolerate a soft diet for dc. Confirmation # is [id number]. Original Note: UZMA BAKER made tc to [facility] transportation, they are unable to take pt home today as their schedule is full.
[2022-09-08] MEDS: Enoxaparin 40 MG/0.4 ML Syringe SC (10:10)
[2022-09-08] MEDS: levETIRAcetam 500 MG Tablet PO (10:10)
[2022-09-08] MEDS: Escitalopram Oxalate 10 MG Tablet PO (10:10)
[2022-09-08] MEDS: Magnesium Chloride 64 MG Delay Rel.Tablet 128 MG PO (10:10)
[2022-09-08] MEDS: Ursodiol 250 MG Tablet PO (10:11)
[2022-09-08] MEDS: amLODIPine 10 MG Tablet PO (10:11)
[2022-09-08] MEDS: Lactulose 20 GM/30 ML UDC 10 GM PO (10:15)
[2022-09-08] MEDS: Gabapentin 300 MG Capsule PO (10:15)
[2022-09-08] MEDS: Insulin Glargine-YFGN 100 UNIT/ML Pen 10 UNIT SC (10:22)
[2022-09-08 10:46] LABS: Bedside Glucose 255 mg/dL (74-106)
--- NOTE | 2022-09-08 11:15 | PCM.DC.SUM ---
Providers Date of Admission: 09/06/22 Date of Discharge: 09/08/22 Primary Care Physician: Dr. Lobito Maldonado MD Reason For Visit: ACUTE ON REC PANCREATITIS Diagnosis Discharge Diagnosis (1) Acute pancreatitis: Status: Acute Code(s): K85.90 - Acute pancreatitis without necrosis or infection, unspecified Qualifiers: Pancreatitis type: unspecified pancreatitis type Acute pancreatitis complication: unspecified Qualified Code(s): K85.90 - Acute pancreatitis without necrosis or infection, unspecified Plan This is 57-year-old gentleman is being admitted for onset of severe abdominal pain along with elevated lipase suggestive of acute on recurrent pancreatitis 1. Acute on recurrent pancreatitis: Patient is being admitted on [facility] floor. Labs reviewed shows mild leukocytosis mainly Polymox 76%. Hematocrit 43%. Platelet count 200,000. Lipase 1507. Liver chemistry in normal range, TB 1.3. A/G ratio 1 :1. UA is negative. Continue PPI. Patient follows Dr. Santamaria. Was last seen by [facility] [place] on July 04, 2022 and patient was sent to ED for admission. Patient is started on IV fluid normal saline plus KCl at 200 mL/h. Ethyl alcohol negative. GGT 48. Serum magnesium 2.0, phosphorus 2.9. 09/07: Improvement in abdominal pain. Started on clear liquid and advance to full liquid as tolerated. Patient has itching with oxycodone and Dilaudid. Benadryl ordered before opioid. 09/08: Patient tolerated clear and full liquid and advance to soft diet. Plan for discharge later today. Discharged on Creon 1 tablet before meals 3 times daily. Advised to hold HCTZ 25 mg daily for 3 days and then restart with 12.5 mg daily. Follow with Dr. Santamaria in 2 weeks. Avoid quitting alcohol altogether. 2. Mild hyponatremia: During previous admission patient also had hyponatremia, sodium 128 which got resolved. This time admitted with 133. On IV fluid normal saline as mentioned above. 09/07: Serum sodium 134 slightly better than yesterday. Continue IV fluid 09/08: Sodium is better 135. Decrease the dose of HCTZ as mentioned above 3. Chronic alcohol use disorder: Patient is still drinks cold beer although he cut back. He said it is hard to quit alcohol but is trying best. Thiamine and folic acid supplementation. 4. Type 2 diabetes mellitus on Accu-Chek AC at bedtime coverage below sliding scale. Glucose is 216. Started on Lantus 10 units daily. Hold metformin. 5. Hypertension: Patient blood pressure is systolic 130 mmHg. 130 patient on HCTZ, losartan 25 mg and amlodipine 10 mg daily at home. Hold HCTZ and losartan. Amlodipine continued. 6. AGA mainly due to third spacing/prerenal: Patient BUN/creatinine 11/1.49. Patient had similar presentation during previous admission with creatinine 1.43. 09/08: AGA resolved. Creatinine 0.82. 7. Other chronic comorbidities include history of seizure disorder: Keppra continued. DVT prophylaxis, pancreatitis is thrombogenic condition: Stool for occult blood. Lovenox 40 MG subcu daily. SCDs ordered Living will/advanced directive/end of life care: Patient does not have living will or advanced directive. After discussion of benefits/risks procedures involved with full code, DNR CC arrest and DNR CC, the patient opted for full code. Patient does want artificial life support including intubation, tube feed, ventilator and/chest compression, central venous catheter, vasopressor and DC shock if needed Total time spent in [id number] encounter in discussion of advanced directive 16 minutes. Laboratory Results 09/07/22 17:06: POC Glucose 87 09/07/22 21:38: POC Glucose 136 H 09/08/22 06:25: WBC 9.9, RBC 3.87 L, Hgb 12.2 L, Hct 36.6 L, MCV 94.6 H, MCH 31.5, MCHC 33.3, RDW Std Deviation 43.5, RDW Coeff of Armin 12.6, Plt Count 153, MPV 10.0, Immature Gran % (Auto) 0.300, Neut % (Auto) 63.3, Lymph % (Auto) 27.0, [place] % (Auto) 7.8, Eos % (Auto) 1.2, Baso % (Auto) 0.4, Absolute Neuts (auto) 6.3, Absolute Lymphs (auto) 2.68, Nucleated RBC % 0 09/08/22 06:25: Sodium 135 L, Potassium 3.6, Chloride 106, Carbon Dioxide 22.0, Anion Gap 7, BUN 5 L, Creatinine 0.82, Estim Creat Clear Calc 102.63, Est GFR (MDRD) Af Amer 124, Est GFR (MDRD) Non-Af 102, BUN/Creatinine Ratio 6.1 L, Glucose 112 H, Calcium 8.4 L, Total Bilirubin 0.80, AST 12 L, ALT 16, Alkaline Phosphatase 55, Total Protein 7.2, Albumin 3.5, Globulin 3.7, Albumin/Globulin Ratio 0.9 09/08/22 06:35: POC Glucose 115 H 09/08/22 10:20: POC Glucose 255 H Medications at Discharge Home Medications nitroglycerin 0.4 mg sublingual tablet 0.4 mg sublingual Q5M PRN Chest Pain 07/15/13 amitriptyline 25 mg tablet 25 mg PO QHS depression 07/03/18 cholecalciferol (vitamin D3) 125 mcg (5,000 unit) capsule 1 cap PO DAILY supplement 11/09/18 hydrochlorothiazide 25 mg tablet 25 mg PO DAILY blood pressure/heart #30 tabs 06/05/20 gabapentin 300 mg capsule 300 mg PO BID nerve pain 10/06/20 insulin glargine 100 unit/mL subcutaneous solution (Lantus U-100 Insulin) 10 unit SQ QHS diabetes 12/30/20 latanoprost 0.005 % eye drops 1 drp EACH EYE QHS glaucoma 12/07/21 lactulose 10 gram/15 mL oral solution 10 g PO DAILY constipation 02/27/22 magnesium oxide 400 mg (241.3 mg magnesium) tablet 400 mg PO BID supplement 02/27/22 pantoprazole 40 mg tablet,delayed release 40 mg PO DAILY gerd 02/27/22 pravastatin 40 mg tablet 60 mg PO QHS cholesterol 02/27/22 tamsulosin 0.4 mg capsule 0.4 mg PO QHS prostate 02/27/22 metformin 500 mg tablet 500 mg PO BID diabetes #0 tabs 03/04/22 ursodiol 250 mg tablet 250 mg PO BID liver fibrosis #180 tabs 04/19/22 aspirin 81 mg tablet,delayed release 81 mg PO DAILY heart health 07/04/22 escitalopram oxalate 10 mg tablet 10 mg PO DAILY depression 07/04/22 fluticasone propionate 50 mcg/actuation nasal spray,suspension (Flonase Allergy Relief) 2 spray intranasal DAILY allergies 07/04/22 loratadine 10 mg capsule 10 mg PO DAILY allergies 07/04/22 losartan 25 mg tablet 25 mg PO DAILY blood pressure 07/04/22 omega-3 fatty acids-fish oil 684 mg-1,200 mg capsule,delayed release 2 cap PO DAILY supplement 07/04/22 amlodipine 10 mg tablet 10 mg PO DAILY blood pressure #90 tabs 07/27/22 levetiracetam 500 mg tablet 500 mg PO BID seizures #60 tabs 08/08/22 acetaminophen 325 mg tablet 650 mg PO Q6H PRN Pain 09/06/22 naproxen 500 mg tablet 500 mg PO BID PRN Pain 09/06/22 pravastatin 20 mg tablet 20 mg PO QHS cholesterol 09/06/22 simethicone 80 mg chewable tablet (Gas Relief 80 (simethicone)) 80 mg PO DAILY PRN gas relief 09/06/22 folic acid 1 mg tablet 1 mg PO BREAKFAST #30 tabs 09/08/22 [id number] 12,000-38,000-60,000 unit capsule,delayed rel (Creon) 1 cap PO .TIDAC 30 days #90 caps 09/08/22 thiamine HCl (vitamin B1) 100 mg tablet (Vitamin B-1) 100 mg PO BREAKFAST #30 tabs 09/08/22 Physical Exam Narrative Physical exam Abdominal pain has almost resolved. General: Alert, Oriented x3, Cooperative HEENT: Atraumatic, PERRLA, EOMI, Normocephalic Oral: Oral mucosa dry. No Gingival or Mucosal Lesions/ Ulcerations Neck: Supple, No JVD, Negative Carotid Bruits Lungs: Air entry diminished in bilateral lung bases. No crepitation/rhonchi Cardiovascular: Regular rate, Regular Rhythm, Normal S1, Normal S2, No murmurs Abdomen: Bowel Sounds normal and good no tenderness. No guarding/rigidity. : No renal angle tenderness. No suprapubic tenderness. Extremities: No edema, Capillary Refill Less than 3 Seconds Skin: No rashes, No breakdown Musculoskeletal: No Tenderness to Palpation of Joints or Extremities Neurological: Cranial nerves II-XII grossly intact, DTR 2+/4, Neuro grossly intact Psych/Mental Status: Flat affect. Weight / BMI Weight Weight: 182 lb 0.006 oz Body Mass Index (BMI) 26.1 ABG / Lab / Microbiology Data Result Diagrams: 09/08/22 06:25 09/08/22 06:25 Laboratory: Laboratory Results - last 24 hr 09/07/22 17:06: POC Glucose 87 09/07/22 21:38: POC Glucose 136 H 09/08/22 06:25: WBC 9.9, RBC 3.87 L, Hgb 12.2 L, Hct 36.6 L, MCV 94.6 H, MCH 31.5, MCHC 33.3, RDW Std Deviation 43.5, RDW Coeff of Armin 12.6, Plt Count 153, MPV 10.0, Immature Gran % (Auto) 0.300, Neut % (Auto) 63.3, Lymph % (Auto) 27.0, [place] % (Auto) 7.8, Eos % (Auto) 1.2, Baso % (Auto) 0.4, Absolute Neuts (auto) 6.3, Absolute Lymphs (auto) 2.68, Nucleated RBC % 0 09/08/22 06:25: Sodium 135 L, Potassium 3.6, Chloride 106, Carbon Dioxide 22.0, Anion Gap 7, BUN 5 L, Creatinine 0.82, Estim Creat Clear Calc 102.63, Est GFR (MDRD) Af Amer 124, Est GFR (MDRD) Non-Af 102, BUN/Creatinine Ratio 6.1 L, Glucose 112 H, Calcium 8.4 L, Total Bilirubin 0.80, AST 12 L, ALT 16, Alkaline Phosphatase 55, Total Protein 7.2, Albumin 3.5, Globulin 3.7, Albumin/Globulin Ratio 0.9 09/08/22 06:35: POC Glucose 115 H 09/08/22 10:20: POC Glucose 255 H D/C Instructions Discharge Diet: Soft diet (Soft bland diet for 5 days. No oily food.) and Low fat / Low cholesterol Weight Bearing Status: Weight bearing as tolerated Call your doctor if you observe: Fever of 101 or Higher, Coldness, Increased Pain, Numbness or Tingling, Change in Color, Inability to urinate, Inability to have a bowel movement, Shortness of breath, Dizziness, Fainting spells, Swelling in the ankles, Chest pain, Prolonged hiccupping, Increased palpitations (irregular heartbeat), Calf discomfort and Uncontrolled pain Meaningful Use Info Meaningful Use Diagnoses (Choose all that apply): None applicable Discharge Plan Admission Admit Date/Time: 09/06/22 11:23 Primary Reason for Your Visit: Acute on recurrent pancreatitis Attending Provider: John Paul Araujo Primary Care Provider: Lobito Maldonado Discharge Orders/Prescriptions Prescriptions: New thiamine HCl (vitamin B1) [Vitamin B-1] 100 mg Tablet 100 mg PO BREAKFAST Qty: 30 0RF folic acid 1 mg Tablet 1 mg PO BREAKFAST Qty: 30 0RF Creon 12,000-38,000 -60,000 unit capsule,delayed release(DR/EC) 1 cap PO .TIDAC 30 Days Qty: 90 2RF Rx Instructions: administer with meals and/or snacks Continued amitriptyline 25 mg tablet 25 mg PO QHS gabapentin 300 mg capsule 300 mg PO BID levetiracetam 500 mg tablet 500 mg PO BID Qty: 60 6RF nitroglycerin 0.4 MG tablet 0.4 mg sublingual Q5M PRN (Reason: Chest Pain) cholecalciferol (vitamin D3) 5,000 capsule 1 cap PO DAILY insulin glargine [Lantus U-100 Insulin] 100 UNIT/ML solution 10 unit SQ QHS latanoprost 0.005 % drops 1 drp EACH EYE QHS tamsulosin 0.4 mg Capsule 0.4 mg PO QHS pantoprazole 40 mg Tablet,Delayed Release (Dr/Ec) 40 mg PO DAILY pravastatin 40 mg Tablet 60 mg PO QHS magnesium oxide 400 mg (241.3 mg magnesium) tablet 400 mg PO BID lactulose 10 gram/15 mL solution 10 g PO DAILY aspirin 81 mg Tablet,Delayed Release (Dr/Ec) 81 mg PO DAILY losartan 25 mg tablet 25 mg PO DAILY fluticasone propionate [Flonase Allergy Relief] 50 mcg/actuation [place],Suspension 2 spray INTRANASAL DAILY escitalopram oxalate 10 mg tablet 10 mg PO DAILY loratadine 10 MG capsule 10 mg PO DAILY omega-3 fatty acids-fish oil 684-1,200 mg Capsule,Delayed Release(Dr/Ec) 2 cap PO DAILY acetaminophen 325 mg Tablet 650 mg PO Q6H PRN (Reason: Pain) pravastatin 20 mg tablet 20 mg PO QHS naproxen 500 mg tablet 500 mg PO BID PRN (Reason: Pain) simethicone [Gas Relief 80 (simethicone)] 80 mg Tablet,Chewable 80 mg PO DAILY PRN (Reason: gas relief) ursodiol 250 mg tablet 250 mg PO BID Qty: 180 1RF amlodipine 10 mg tablet 10 mg PO DAILY Qty: 90 3RF Held metformin 500 MG tablet 500 mg PO BID Qty: 0 0RF Hold Instructions: Hold for 3 days hydrochlorothiazide 25 mg tablet 25 mg PO DAILY Qty: 30 11RF Hold Instructions: Hold for 3 days and start with 12.5 mg, half tablet daily. Referrals / Follow Up: Taras Santamaria DO [Med Staff - Active Staff] - Within 2 Weeks (Acute on recurrent pancreatitis) Lobito Maldonado MD [Primary Care Provider] - Disposition Disposition (needs filled in before D/C Order can be placed): Home, Self Care Charges/Coding Visit Charges Inpatient E&M: 02020 Disch Hosp
[2022-09-08 12:00] LABS: Bedside Glucose 191 mg/dL (74-106)
--- NOTE | 2022-09-08 12:03 | CASEMGMT ---
Social Work SW met with pt to discuss HCPOA. Pt states he was not able to obtain address and phone number of designee. SW gave pt HCPOA paperwork and SW rack card and encouraged pt that documents can be completed as an outpatient. Pt understanding. BENY Rodriguez
[2022-09-08] MEDS: Insulin Lispro 100 UNIT/ML INSULN.PEN SC (12:44)
[2022-09-08 13:50] VITALS: BP 139/91; PULSE 94; RESP 18; TEMP 36.5; O2SAT 94
== END 2022-09-08 14:31 | disposition home or self-care (01) | DRG 439 ==
LOC: ED 11:27 → MS3 11:55
PROVIDERS: Admitting Provider Internal Medicine; Emergency Provider Emergency Medicine; PCP Internal Medicine; Visit Provider Internal Medicine
DX: K85.90 Acute pancreatitis without necrosis or infection, unspecified (principal); N17.9 Acute kidney failure, unspecified; E87.1 Hypo-osmolality and hyponatremia; G40.409 Other generalized epilepsy and epileptic syndromes, not intractable, without status epilepticus; E11.9 Type 2 diabetes mellitus without complications; Z79.4 Long term (current) use of insulin; K86.1 Other chronic pancreatitis; I10 Essential (primary) hypertension; E78.5 Hyperlipidemia, unspecified; F10.10 Alcohol abuse, uncomplicated; G89.29 Other chronic pain; Z79.82 Long term (current) use of aspirin; Z79.899 Other long term (current) drug therapy; Z87.891 Personal history of nicotine dependence; Z86.73 Personal history of transient ischemic attack (TIA), and cerebral infarction without residual deficits; Y90.0 Blood alcohol level of less than 20 mg/100 ml
CPT/HCPCS: 36415; 80053; 81001; 82077; 82746; 82962; 82977; 83036; 83690; 83735; 84100; 85025; 97802; 99251; 99284; J7030; J7120; A4216; G0463; J2405; J3490

== ENCOUNTER 2022-10-25 18:29 | Inpatient (IN) | payer MEDICARE, MEDICAID, SELFPAY ==
[2022-10-25 18:30] VITALS: BP 126/102; PULSE 109; RESP 14; TEMP 36.6; O2SAT 99; BMI 28.0
[2022-10-25 20:55] LABS: Bacteria 0 SEEN /hpf (None Seen); Mucous, Urine 0 SEEN /hpf (<or=2+)
[2022-10-25 20:58] LABS: Absolute Lymphocyte Count 2.83 X10^3/uL (0.83-4.51); Absolute Neutrophil Count 11.5 X10^3/uL (2.0-7.7); Basophil# 0.06 X10^3/uL; Basophil% 0.4 % (0-1); Eosinophil# 0.17 X10^3/uL; Eosinophils% 1.1 % (0-5); Hemoglobin 14.1 g/dL (13.0-16.5); Lymphocyte # 2.83 X10^3/ul (0.83-4.51); Lymphocyte % 18.1 % (19-41); Mean Corp Hgb Conc 33.6 g/dL (32-36); Mean Corpuscular Hgb 31.5 pg (27.0-32.0); Mean Corpuscular Volume 93.8 fL (80-94); Mean Platelet Vol. 9.7 fl (6.2-12.0); Monocyte# 1.02 X10^3/uL; Monocyte% 6.5 % (0-10); NRBC Flagged by Analyzer 0 % (0-5); Neutrophil # 11.49 X10^3/uL (2.7-7.7); Neutrophil % 73.5 % (47-70); Platelet Count 211 K/mm3 (150-450); RBC Distribution Width CV 12.6 % (11.6-14.6); RBC Distribution Width SD 43.3 fl (35.1-43.9); Red Blood Count 4.48 M/mm3 (4.6-6.2); White Blood Count 15.6 K/mm3 (4.4-11.0)
[2022-10-25 20:59] LABS: Glucose, Dipstick 50 mg/dl (Normal); Ketone-Dipstick Negative (Negative); Leukocyte Esterase-Dipstick Negative /ul (Negative); Nitrite-Dipstick Negative (Negative); Occult Blood-Urine Negative /ul (Negative); Protein-Dipstick 100 mg/dl (Negative); Urine Bilirubin Dipstick Negative (Negative); Urine Urobilinogen 1 mg/dl (Normal)
[2022-10-25 21:03] LABS: Color, Urine Yellow (Yellow); Urine Clarity Clear (Clear)
[2022-10-25 21:13] LABS: AST(SGOT) 12 U/L (15-37); Alanine Aminotransfer ALT/SGPT 20 U/L (16-61); Albumin, Serum 4.4 g/dL (3.2-5.0); Alkaline Phosphatase 68 U/L (45-117); Anion Gap 9 (5-15); BUN 22 mg/dL (7-18); BUN/Creat Ratio 19.5 RATIO (10-20); Bilirubin, Direct 0.22 mg/dL (0.00-0.30); Calcium,Total 9.7 mg/dL (8.5-10.1); Chloride 104 mmol/L (98-107); Creatinine, Serum 1.13 mg/dL (0.70-1.30); EST Glomerular Filtration Rate 71 mL/min (>60); Est Glom Filt Rate - Afr Amer 86 mL/min (>60); Estimated Creatinine Clearance 74.47 ml/min; Globulin 3.9 g/dL (2.2-4.2); Glucose 177 mg/dL (74-106); Lipase 930 U/L (73-393); Potassium 3.7 mmol/L (3.5-5.1); Protein, Total 8.3 g/dL (6.4-8.2); Sodium Level 139 mmol/L (136-145)
[2022-10-25 21:16] LABS: Red Blood Cells-Urine 0-5 SEEN /hpf (0-5); Squamous Epithelial Cells - UA 0-5 SEEN /hpf (0-5); White Blood Cells 0-5 SEEN /hpf (0-5)
--- NOTE | 2022-10-25 22:04 | ED.VIS.GI ---
HPI HPI - GI History of Present Illness Chief Complaint: Abd Pain Narrative Narrative: 57-year-old male with history of pancreatitis, GERD presenting with epigastric pain. He states it started about 11 AM this morning. He states it feels like pancreatitis. Patient states he has seen Dr. Santamaria he states that he is not drinking any alcohol. He is taking medication provided by Dr. Santamaria patient not had a fever. He denies constipation or diarrhea. [facility] Medical History Acute pancreatitis Alcohol abuse Anxiety and depression Cancer Cerebrovascular disease Chronic hip pain Chronic pain Constipation Diabetes Diabetes mellitus type 2 in nonobese Essential (primary) hypertension Family history of cerebral aneurysm Former tobacco use Gastric ulcer GERD (gastroesophageal reflux disease) GERD (gastroesophageal reflux disease) GI bleed Glaucoma Hyperlipidemia Neck pain Other generalized epilepsy and epileptic syndromes, not intractable, without status epilepticus Pancreatitis Polyneuropathy PSA elevation PTSD (post-traumatic stress disorder) Seizure disorder TIA (transient ischemic attack) Type 2 diabetes mellitus Vision loss of left eye Vision loss of right eye Home Medications nitroglycerin 0.4 mg sublingual tablet 0.4 mg sublingual Q5M PRN Chest Pain 07/15/13 [History Last Taken 08/22/15] amitriptyline 25 mg tablet 25 mg PO QHS depression 07/03/18 [History Last Taken 09/05/22] cholecalciferol (vitamin D3) 125 mcg (5,000 unit) capsule 1 cap PO DAILY supplement 11/09/18 [History Last Taken 09/06/22] hydrochlorothiazide 25 mg tablet 25 mg PO DAILY blood pressure/heart #30 tabs 06/05/20 [Rx Last Taken 09/06/22] gabapentin 300 mg capsule 300 mg PO BID nerve pain 10/06/20 [History Last Taken 09/05/22] insulin glargine 100 unit/mL subcutaneous solution (Lantus U-100 Insulin) 10 unit SQ QHS diabetes 12/30/20 [History Last Taken 09/04/22] latanoprost 0.005 % eye drops 1 drp EACH EYE QHS glaucoma 12/07/21 [History Last Taken 09/05/22] magnesium oxide 400 mg (241.3 mg magnesium) tablet 400 mg PO BID supplement 02/27/22 [History Last Taken 09/06/22] pantoprazole 40 mg tablet,delayed release 40 mg PO DAILY gerd 02/27/22 [History Last Taken 09/06/22] pravastatin 40 mg tablet 60 mg PO QHS cholesterol 02/27/22 [History Last Taken 09/05/22] tamsulosin 0.4 mg capsule 0.4 mg PO QHS prostate 02/27/22 [History Last Taken 09/05/22] metformin 500 mg tablet 500 mg PO BID diabetes #0 tabs 03/04/22 [Rx Last Taken 09/06/22] aspirin 81 mg tablet,delayed release 81 mg PO DAILY heart health 07/04/22 [History Last Taken 09/06/22] escitalopram oxalate 10 mg tablet 10 mg PO DAILY depression 07/04/22 [History Last Taken 09/06/22] fluticasone propionate 50 mcg/actuation nasal spray,suspension (Flonase Allergy Relief) 2 spray intranasal DAILY allergies 07/04/22 [History Last Taken 09/04/22] loratadine 10 mg capsule 10 mg PO DAILY allergies 07/04/22 [History Last Taken 09/06/22] losartan 25 mg tablet 25 mg PO DAILY blood pressure 07/04/22 [History Last Taken 09/06/22] omega-3 fatty acids-fish oil 684 mg-1,200 mg capsule,delayed release 2 cap PO DAILY supplement 07/04/22 [History Last Taken 09/06/22] amlodipine 10 mg tablet 10 mg PO DAILY blood pressure #90 tabs 07/27/22 [Rx Last Taken 09/06/22] levetiracetam 500 mg tablet 500 mg PO BID seizures #60 tabs 08/08/22 [Rx Last Taken 09/06/22] naproxen 500 mg tablet 500 mg PO BID PRN Pain 09/06/22 [History Last Taken Unknown] simethicone 80 mg chewable tablet (Gas Relief 80 (simethicone)) 80 mg PO DAILY PRN gas relief 09/06/22 [History Last Taken Unknown] folic acid 1 mg tablet 1 mg PO BREAKFAST #30 tabs 09/08/22 [Rx Last Taken Unknown] [id number] 12,000-38,000-60,000 unit capsule,delayed rel (Creon) 1 cap PO .TIDAC 30 days #90 caps 09/08/22 [Rx Last Taken Unknown] thiamine HCl (vitamin B1) 100 mg tablet (Vitamin B-1) 100 mg PO BREAKFAST #30 tabs 09/08/22 [Rx Last Taken Unknown] ursodiol 250 mg tablet 250 mg PO BID liver fibrosis #180 tabs 09/21/22 [Rx Last Taken Unknown] levocarnitine 330 mg tablet 330 mg PO BID #60 tabs 09/28/22 [Rx Last Taken Unknown] Allergy/AdvReac Type Severity Reaction Status Date / Time lisinopril Allergy Angioedema Verified 10/25/22 18:30 cyclobenzaprine AdvReac Severe Skin Verified 10/25/22 18:30 crawling hydrocodone bitartrate AdvReac Itching Verified 10/25/22 18:30 [From Vicodin] hydromorphone [From Dilaudid] AdvReac Itching Verified 10/25/22 18:30 morphine AdvReac Itching Verified 10/25/22 18:30 tramadol AdvReac Itching Verified 10/25/22 18:30 Family History Mother Heart disease Sister Cerebral aneurysm Surgical History History of cholecystectomy (12/2013) History of left heart catheterization (10/31/11) Social History Smoking Status: Former smoker Tobacco: How many years used: 7 Electronic Cigarette Use: not used alcohol intake: current alcohol intake frequency: holidays/special occasions only Alcohol type: beer details: states a couple beers every now on then, does not have daily substance use type: does not use caffeine: No robbin/restorationism: Evangelical seatbelt use: always ROS ROS ED Constitutional Constitutional ED: Denies chills or fever(s) ENT ENT ED: Denies rhinorrhea or sore throat Cardiovascular Cardiovascular: Denies chest pain or palpitations Respiratory/Chest Respiratory/Chest: Denies cough or dyspnea Gastrointestinal Gastrointestinal: Reports abdominal pain and nausea Genitourinary Genitourinary ED: Denies dysuria or hematuria Musculoskeletal Musculoskeletal: Denies arthralgias Integumentary Denies abscess or Abrasions Neurologic Neurologic: Denies headache(s) or paresthesias Psychiatric Psychiatric: Denies anxiety or depression Endocrine Endocrinology: Denies polydipsia or polyphagia EXAM Physical Exam Const Vital Signs: 10/25/22 18:30 10/25/22 23:48 Temperature 98 F Temperature Source Temporal Pulse Rate 109 H 94 Respiratory Rate 14 25 H Blood Pressure 126/102 H 94/69 Blood Pressure Mean 110 77 Pulse Ox 99 100 Oxygen Delivery Method Room Air Room Air Positive well nourished General Appearance ED: Negative for pallor HEENT Reports moist mucous membranes normocephalic and atraumatic Eyes PERRL and EOMs intact bilaterally Resp normal respiratory effort and clear to auscultation bilaterally Auscultation: Negative for rales, rhonchi or wheezes Cardio regular rate and regular rhythm GI Palpation: tender epigastric Back/Spine no CVA tenderness Neuro CN's II-XII intact bilaterally and moves all extremities Sensorium / Orientation: alert Psych mental status grossly normal and thought process normal Skin no wounds General Skin Exam: Negative for jaundice or pallor MDM MDM MDM Narrative Medical decision making narrative: Patient presented with epigastric pain. He is concerned he might have pancreatitis again. He states that he has not been drinking alcohol since his last admission. CBC to assess for elevated white blood cell count, hemoglobin levels, platelets, differential. White blood cell count slightly elevated today at 15.6. Hemoglobin stable at 14.1. Platelets normal at 211. CMP assess renal function, liver function, electrolytes, glucose, anion gap. This shows normal renal function. Glucose is elevated at 177 without anion gap. Liver function appears normal however the patient's lipase is elevated at 930 today. He was medicated with Dilaudid 0.5 mg x 2 and had received Benadryl because he is allergic to this and he gets very itchy. Patient requested to be admitted for intractable pain. I spoke with the hospitalist and she did admit the patient stable condition. I do not believe he needs CT scan of his abdomen at this point. Impression: 1. Acute exacerbation of chronic pancreatitis 2. Abdominal pain Lab Data Attestation: I reviewed the patient's lab results. Labs: Laboratory Results - last 24 hr 10/25/22 10/25/22 10/25/22 20:40 20:40 20:40 WBC 15.6 H RBC 4.48 L Hgb 14.1 Hct 42.0 MCV 93.8 MCH 31.5 MCHC 33.6 RDW Std Deviation 43.3 RDW Coeff of Armin 12.6 Plt Count 211 MPV 9.7 Immature Gran % (Auto) 0.400 Neut % (Auto) 73.5 H Lymph % (Auto) 18.1 L [place] % (Auto) 6.5 Eos % (Auto) 1.1 Baso % (Auto) 0.4 Absolute Neuts (auto) 11.5 H Absolute Lymphs (auto) 2.83 Nucleated RBC % 0 Sodium 139 Potassium 3.7 Chloride 104 Carbon Dioxide 26.0 Anion Gap 9 BUN 22 H Creatinine 1.13 Estim Creat Clear Calc 74.47 Est GFR (MDRD) Af Amer 86 Est GFR (MDRD) Non-Af 71 BUN/Creatinine Ratio 19.5 Glucose 177 H Calcium 9.7 Total Bilirubin 0.60 Direct Bilirubin 0.22 AST 12 L ALT 20 Alkaline Phosphatase 68 Total Protein 8.3 H Albumin 4.4 Globulin 3.9 Lipase 930 H Urine Color Yellow Urine Clarity Clear Urine pH 6.0 Ur Specific [place] 1.020 Urine Protein 100 H Urine Glucose (UA) 50 H Urine Ketones Negative Urine Occult Blood Negative Urine Nitrite Negative Urine Bilirubin Negative Urine Urobilinogen 1 H Ur Leukocyte Esterase Negative Urine RBC 0-5 SEEN Urine WBC 0-5 SEEN Ur Squamous Epith Cells 0-5 SEEN Urine Bacteria 0 SEEN Urine Mucus 0 SEEN Discharge Plan Triage Chief Complaint: Abd Pain ED Provider: Yahir Arteaga Dx/Rx/DC Orders Prescriptions: No Action amitriptyline 25 mg tablet 25 mg PO QHS gabapentin 300 mg capsule 300 mg PO BID levetiracetam 500 mg tablet 500 mg PO BID Qty: 60 6RF levocarnitine 330 mg tablet 330 mg PO BID Qty: 60 5RF Rx Instructions: must administer with a meal/food nitroglycerin 0.4 MG tablet 0.4 mg sublingual Q5M PRN (Reason: Chest Pain) cholecalciferol (vitamin D3) 5,000 capsule 1 cap PO DAILY insulin glargine [Lantus U-100 Insulin] 100 UNIT/ML solution 10 unit SQ QHS latanoprost 0.005 % drops 1 drp EACH EYE QHS tamsulosin 0.4 mg Capsule 0.4 mg PO QHS pantoprazole 40 mg Tablet,Delayed Release (Dr/Ec) 40 mg PO DAILY pravastatin 40 mg Tablet 60 mg PO QHS magnesium oxide 400 mg (241.3 mg magnesium) tablet 400 mg PO BID metformin 500 MG tablet 500 mg PO BID Qty: 0 0RF Hold Instructions: Hold for 3 days aspirin 81 mg Tablet,Delayed Release (Dr/Ec) 81 mg PO DAILY losartan 25 mg tablet 25 mg PO DAILY fluticasone propionate [Flonase Allergy Relief] 50 mcg/actuation [place],Suspension 2 spray INTRANASAL DAILY escitalopram oxalate 10 mg tablet 10 mg PO DAILY loratadine 10 MG capsule 10 mg PO DAILY omega-3 fatty acids-fish oil 684-1,200 mg Capsule,Delayed Release(Dr/Ec) 2 cap PO DAILY naproxen 500 mg tablet 500 mg PO BID PRN (Reason: Pain) simethicone [Gas Relief 80 (simethicone)] 80 mg Tablet,Chewable 80 mg PO DAILY PRN (Reason: gas relief) thiamine HCl (vitamin B1) [Vitamin B-1] 100 mg Tablet 100 mg PO BREAKFAST Qty: 30 0RF folic acid 1 mg Tablet 1 mg PO BREAKFAST Qty: 30 0RF Creon 12,000-38,000 -60,000 unit capsule,delayed release(DR/EC) 1 cap PO .TIDAC 30 Days Qty: 90 2RF Rx Instructions: administer with meals and/or snacks hydrochlorothiazide 25 mg tablet 25 mg PO DAILY Qty: 30 11RF Hold Instructions: Hold for 3 days and start with 12.5 mg, half tablet daily. amlodipine 10 mg tablet 10 mg PO DAILY Qty: 90 3RF ursodiol 250 mg tablet 250 mg PO BID Qty: 180 1RF Primary Care Provider: Lobito Maldonado Referrals: Lobito Maldonado MD [Primary Care Provider] -
[2022-10-25] MEDS: HYDROmorphone 0.5 MG/0.5 ML SYRINGE IV ×2 (22:12→23:46)
[2022-10-25] MEDS: DiphenhydrAMINE 50 MG/ML Syringe 25 MG IV (22:12)
[2022-10-25 23:48] VITALS: BP 94/69; PULSE 94; RESP 25; O2SAT 100
[2022-10-26] VITALS (7 sets, daily range): BP systolic 128–155; BP diastolic 80–106; PULSE 71–85; RESP 16–24; TEMP 36.5–37; O2SAT 95–97; BMI 26.1
--- NOTE | 2022-10-26 00:43 | PCM.HP.STD ---
HPI - General General Date of Admission: 10/26/22 Date of Service: 10/26/22 Chief Complaint: Epigastric pain - 1 day HPI Narrative BRANDON WELLER, is a 57 M who presents with the above. Patient has past medical history of recurrent pancreatitis, previous episodes were related to alcohol. Patient stated that since his last discharge on 09/08/22, he has quit drinking alcohol. He was in his usual state of health until this afternoon when he had sudden onset of abdominal discomfort was associated with nausea. Abdominal pain felt very much like previous pancreatitis. He denied any new medications. He has had his gallbladder taken out. Vitals in ED showed blood pressure 126/102, heart rate 109, respiratory rate 14, temperature 98F, oxygen sat is 99% on room air. WBC 15.6, hemoglobin 14.1, platelet count 211. CMP unremarkable except for BUN 22, creatinine 1.13, previous creatinine 0.82. LFTs unremarkable. Lipase 930 PFSH Medical History Acute pancreatitis Alcohol abuse Anxiety and depression Cancer Cerebrovascular disease Chronic hip pain Chronic pain Constipation Diabetes Diabetes mellitus type 2 in nonobese Essential (primary) hypertension Family history of cerebral aneurysm Former tobacco use Gastric ulcer GERD (gastroesophageal reflux disease) GERD (gastroesophageal reflux disease) GI bleed Glaucoma Hyperlipidemia Neck pain Other generalized epilepsy and epileptic syndromes, not intractable, without status epilepticus Pancreatitis Polyneuropathy PSA elevation PTSD (post-traumatic stress disorder) Seizure disorder TIA (transient ischemic attack) Type 2 diabetes mellitus Vision loss of left eye Vision loss of right eye Home Medications nitroglycerin 0.4 mg sublingual tablet 0.4 mg sublingual Q5M PRN Chest Pain 07/15/13 [History Last Taken 08/22/15] amitriptyline 25 mg tablet 25 mg PO QHS depression 07/03/18 [History Last Taken 09/05/22] cholecalciferol (vitamin D3) 125 mcg (5,000 unit) capsule 1 cap PO DAILY supplement 11/09/18 [History Last Taken 09/06/22] hydrochlorothiazide 25 mg tablet 25 mg PO DAILY blood pressure/heart #30 tabs 06/05/20 [Rx Last Taken 09/06/22] gabapentin 300 mg capsule 300 mg PO BID nerve pain 10/06/20 [History Last Taken 09/05/22] insulin glargine 100 unit/mL subcutaneous solution (Lantus U-100 Insulin) 10 unit SQ QHS diabetes 12/30/20 [History Last Taken 09/04/22] latanoprost 0.005 % eye drops 1 drp EACH EYE QHS glaucoma 12/07/21 [History Last Taken 09/05/22] magnesium oxide 400 mg (241.3 mg magnesium) tablet 400 mg PO BID supplement 02/27/22 [History Last Taken 09/06/22] pantoprazole 40 mg tablet,delayed release 40 mg PO DAILY gerd 02/27/22 [History Last Taken 09/06/22] pravastatin 40 mg tablet 60 mg PO QHS cholesterol 02/27/22 [History Last Taken 09/05/22] tamsulosin 0.4 mg capsule 0.4 mg PO QHS prostate 02/27/22 [History Last Taken 09/05/22] metformin 500 mg tablet 500 mg PO BID diabetes #0 tabs 03/04/22 [Rx Last Taken 09/06/22] aspirin 81 mg tablet,delayed release 81 mg PO DAILY heart health 07/04/22 [History Last Taken 09/06/22] escitalopram oxalate 10 mg tablet 10 mg PO DAILY depression 07/04/22 [History Last Taken 09/06/22] fluticasone propionate 50 mcg/actuation nasal spray,suspension (Flonase Allergy Relief) 2 spray intranasal DAILY allergies 07/04/22 [History Last Taken 09/04/22] loratadine 10 mg capsule 10 mg PO DAILY allergies 07/04/22 [History Last Taken 09/06/22] losartan 25 mg tablet 25 mg PO DAILY blood pressure 07/04/22 [History Last Taken 09/06/22] omega-3 fatty acids-fish oil 684 mg-1,200 mg capsule,delayed release 2 cap PO DAILY supplement 07/04/22 [History Last Taken 09/06/22] amlodipine 10 mg tablet 10 mg PO DAILY blood pressure #90 tabs 07/27/22 [Rx Last Taken 09/06/22] levetiracetam 500 mg tablet 500 mg PO BID seizures #60 tabs 08/08/22 [Rx Last Taken 09/06/22] naproxen 500 mg tablet 500 mg PO BID PRN Pain 09/06/22 [History Last Taken Unknown] simethicone 80 mg chewable tablet (Gas Relief 80 (simethicone)) 80 mg PO DAILY PRN gas relief 09/06/22 [History Last Taken Unknown] folic acid 1 mg tablet 1 mg PO BREAKFAST #30 tabs 09/08/22 [Rx Last Taken Unknown] thsnui-dvtezpcq-tixzawx 12,000-38,000-60,000 unit capsule,delayed rel (Creon) 1 cap PO .TIDAC 30 days #90 caps 09/08/22 [Rx Last Taken Unknown] thiamine HCl (vitamin B1) 100 mg tablet (Vitamin B-1) 100 mg PO BREAKFAST #30 tabs 09/08/22 [Rx Last Taken Unknown] ursodiol 250 mg tablet 250 mg PO BID liver fibrosis #180 tabs 09/21/22 [Rx Last Taken Unknown] levocarnitine 330 mg tablet 330 mg PO BID #60 tabs 09/28/22 [Rx Last Taken Unknown] Allergy/AdvReac Type Severity Reaction Status Date / Time lisinopril Allergy Angioedema Verified 10/25/22 18:30 cyclobenzaprine AdvReac Severe Skin Verified 10/25/22 18:30 crawling hydrocodone bitartrate AdvReac Itching Verified 10/25/22 18:30 [From Vicodin] hydromorphone [From Dilaudid] AdvReac Itching Verified 10/25/22 18:30 morphine AdvReac Itching Verified 10/25/22 18:30 tramadol AdvReac Itching Verified 10/25/22 18:30 Family History Mother Heart disease Sister Cerebral aneurysm Surgical History History of cholecystectomy (12/2013) History of left heart catheterization (10/31/11) Social History (Updated 10/26/22 @ 01:[address] Mia Carr MD) Smoking Status: Former smoker Tobacco: How many years used: 7 Electronic Cigarette Use: not used alcohol intake: former details: states a couple beers every now on then, does not have daily substance use type: does not use caffeine: No robbin/spiritism: Mandaen seatbelt use: always ROS ROS Narrative Constitutional: Denies: Anorexia, Chills, Fever, Night Sweats, Weight Change Eyes: Denies: Blurred vision, Cataracts, Conjunctivae Inflammation, Pain, Redness, Vision Change HEENT: Denies: Difficulty Hearing, Difficulty Swallowing, Head Aches, Hearing Changes, Sinus Congestion, Sinus Drainage Cardiovascular: Denies: Chest Pain, Orthopnea, Palpitations Respiratory: Denies: Cough, Shortness of breath at rest, Sputum production Gastrointestinal: See HPI Genitourinary: Denies: Dysuria Musculoskeletal: Denies: Joint Pain, Joint stiffness, Joint swelling, Joint Tenderness Skin: Denies: Rash, Wounds Neurological: Denies: Numbness, Tingling, Focal weakness Vital Signs Vital Signs Vital Signs: 10/25/22 18:30 10/25/22 23:48 10/26/22 00:39 Temperature 98 F 98.6 F Temperature Source Temporal Temporal Pulse Rate 109 H 94 81 Respiratory Rate 14 25 H 24 H Blood Pressure 126/102 H 94/69 128/90 H Blood Pressure Mean 110 77 102 Pulse Ox 99 100 97 Oxygen Delivery Method Room Air Room Air Room Air Weight Weight: 88.5 kg Body Mass Index (BMI) 28.0 Results Lab / Micro Data Result Diagrams: 10/25/22 20:40 10/25/22 20:40 Labs: Laboratory Results - last 24 hr 10/25/22 20:40: WBC 15.6 H, RBC 4.48 L, Hgb 14.1, Hct 42.0, MCV 93.8, MCH 31.5, MCHC 33.6, RDW Std Deviation 43.3, RDW Coeff of Armin 12.6, Plt Count 211, MPV 9.7, Immature Gran % (Auto) 0.400, Neut % (Auto) 73.5 H, Lymph % (Auto) 18.1 L, [place] % (Auto) 6.5, Eos % (Auto) 1.1, Baso % (Auto) 0.4, Absolute Neuts (auto) 11.5 H, Absolute Lymphs (auto) 2.83, Nucleated RBC % 0 10/25/22 20:40: Sodium 139, Potassium 3.7, Chloride 104, Carbon Dioxide 26.0, Anion Gap 9, BUN 22 H, Creatinine 1.13, Estim Creat Clear Calc 74.47, Est GFR (MDRD) Af Amer 86, Est GFR (MDRD) Non-Af 71, BUN/Creatinine Ratio 19.5, Glucose 177 H, Calcium 9.7, Total Bilirubin 0.60, Direct Bilirubin 0.22, AST 12 L, ALT 20, Alkaline Phosphatase 68, Total Protein 8.3 H, Albumin 4.4, Globulin 3.9, Lipase 930 H 10/25/22 20:40: Urine Color Yellow, Urine Clarity Clear, Urine pH 6.0, Ur Specific [place] 1.020, Urine Protein 100 H, Urine Glucose (UA) 50 H, Urine Ketones Negative, Urine Occult Blood Negative, Urine Nitrite Negative, Urine Bilirubin Negative, Urine Urobilinogen 1 H, Ur Leukocyte Esterase Negative, Urine RBC 0-5 SEEN, Urine WBC 0-5 SEEN, Ur Squamous Epith Cells 0-5 SEEN, Urine Bacteria 0 SEEN, Urine Mucus 0 SEEN Assessment & Plan Assessment/Plan (1) Acute recurrent pancreatitis: PLAN: Plan 1. Acute onset of epigastric pain secondary to acute recurrent pancreatitis Unclear etiology for current pancreatitis; patient stated that he is quit drinking alcohol Elevated lipase of 930 Admitted observation, pain control, IV fluids, liquid diet, advance as patient. Hold hydrochlorothiazide and lisinopril as both can cause pancreatitis in rare cases Continue on Creon 2. Hypertension, blood pressure relatively low, continue amlodipine and losartan Hold losartan and hydrochlorothiazide for reasons above 3. Type II DM, hold metformin, continue Lantus with insulin sliding scale 4. Seizure disorder, continue on Keppra 5. Anxiety/depression, continue Zoloft 6. Hyperlipidemia, continue statin 7. DVT PPx- low risk, early ambulation recommended Charges/Coding Visit Charges Inpatient E&M: 68870 Subs Hosp L2
[2022-10-26 00:59] LABS: Alcohol, Blood (Medical)-Serum < 3.0 mg/dL
[2022-10-26] MEDS: 0.9% Normal Saline 1,000 ML 150 ML IV ×4 (02:08→21:30)
[2022-10-26] MEDS: Morphine 2 MG/ML Syringe 1 MG IV ×3 (02:20→11:40)
[2022-10-26] MEDS: DiphenhydrAMINE 25 MG Capsule PO ×2 (02:20→17:14)
[2022-10-26 05:37] LABS: Basophil# 0.05 X10^3/uL; Basophil% 0.4 % (0-1); Eosinophil# 0.05 X10^3/uL; Eosinophils% 0.4 % (0-5); Hematocrit 38.3 % (40-54); Hemoglobin 13.3 g/dL (13.0-16.5); Lymphocyte % 14.7 % (19-41); Mean Corp Hgb Conc 34.7 g/dL (32-36); Mean Corpuscular Hgb 32.1 pg (27.0-32.0); Mean Corpuscular Volume 92.5 fL (80-94); Mean Platelet Vol. 9.4 fl (6.2-12.0); Monocyte# 0.87 X10^3/uL; Monocyte% 6.7 % (0-10); NRBC Flagged by Analyzer 0 % (0-5); Neutrophil # 10.02 X10^3/uL (2.7-7.7); Neutrophil % 77.4 % (47-70); Platelet Count 173 K/mm3 (150-450); RBC Distribution Width CV 12.9 % (11.6-14.6); RBC Distribution Width SD 43.8 fl (35.1-43.9); Red Blood Count 4.14 M/mm3 (4.6-6.2); White Blood Count 12.9 K/mm3 (4.4-11.0)
[2022-10-26] MEDS: Creon 12,000 unit DR CapSULE 1 CAP PO ×3 (06:01→17:14)
[2022-10-26 06:13] LABS: ALB/GLOB Ratio 1.1 RATIO (0.9-2.4); AST(SGOT) 15 U/L (15-37); Alanine Aminotransfer ALT/SGPT 17 U/L (16-61); Alkaline Phosphatase 63 U/L (45-117); Anion Gap 9 (5-15); BUN 21 mg/dL (7-18); BUN/Creat Ratio 21.8 RATIO (10-20); Calcium,Total 9.2 mg/dL (8.5-10.1); Chloride 106 mmol/L (98-107); Creatinine, Serum 0.96 mg/dL (0.70-1.30); EST Glomerular Filtration Rate 85 mL/min (>60); Est Glom Filt Rate - Afr Amer 103 mL/min (>60); Estimated Creatinine Clearance 87.66 ml/min; Globulin 3.7 g/dL (2.2-4.2); Glucose 184 mg/dL (74-106); Potassium 3.6 mmol/L (3.5-5.1); Protein, Total 7.7 g/dL (6.4-8.2); Sodium Level 139 mmol/L (136-145)
[2022-10-26] MEDS: Gabapentin 300 MG Capsule PO ×2 (09:08→21:19)
[2022-10-26] MEDS: oxyCODONE 5 MG Tablet PO ×3 (09:08→21:16)
[2022-10-26] MEDS: Ondansetron 4 MG/2 ML Vial IV ×2 (09:08→17:14)
[2022-10-26] MEDS: amLODIPine 10 MG Tablet PO (09:09)
[2022-10-26] MEDS: 0.9% Saline Lock 10 ML Syringe IV ×2 (09:09→17:14)
[2022-10-26] MEDS: Cholecalciferol (Vit D3) 125 MCG CAPSULE (5,000 UNITS) PO (09:09)
[2022-10-26] MEDS: Aspirin E.C. 81 MG Tablet PO (09:09)
[2022-10-26] MEDS: Ursodiol 250 MG Tablet PO ×2 (09:09→21:15)
[2022-10-26] MEDS: Folic Acid 1 MG Tablet PO (09:09)
[2022-10-26] MEDS: Pantoprazole Sodium 40 MG Tablet PO (09:09)
[2022-10-26] MEDS: Loratadine 10 MG Tablet PO (09:10)
[2022-10-26] MEDS: Magnesium Chloride 64 MG Delay Rel.Tablet 128 MG PO ×2 (09:10→21:14)
[2022-10-26] MEDS: Escitalopram Oxalate 10 MG Tablet PO (09:10)
[2022-10-26] MEDS: levETIRAcetam 500 MG Tablet PO ×2 (09:10→21:14)
[2022-10-26] MEDS: Thiamine Hydrochloride 100 MG Tablet PO (09:10)
--- NOTE | 2022-10-26 13:45 | CT_ITS ---
STUDY: CT ABDOMEN AND PELVIS WITH CONTRAST REASON FOR EXAM: Male, 57 years old. Pancreatitis with abdominal pain RADIATION DOSAGE (If Supplied By Facility): CTDIvol = ( 14.95 ) mGy, DLP = ( 838.87 ) mGycm TECHNIQUE: Transaxial images were obtained from the dome of the diaphragm to the symphysis pubis without oral contrast. IV 100mL Isovue-370 was administered. Sagittal and coronal images were reconstructed. Individualized dose optimization techniques were used for this CT. COMPARISON: July 13, 2022. FINDINGS: The visualized lung bases demonstrate basilar atelectasis. The visualized portions of the heart are within normal limits. 1.2 cm cyst in the liver. Status post cholecystectomy. There is mild dilatation of the extrahepatic biliary system. Normal spleen. Mild mesenteric stranding/edema near the tail of the pancreas. Normal bilateral adrenal glands. Normal right kidney. 1.5 cm cyst in the left kidney. Normal visualized stomach. Mild ileus of the small intestine. Mild diverticulosis of the colon. The appendix is visualized and appears normal. Normal abdominal aorta. Normal inferior vena cava. Normal retroperitoneum. Normal urinary bladder. Mild pelvic free fluid. Normal abdominal wall. Normal osseous structures. CT/Abdomen/Pelvis WITH Contrast IMPRESSION: Mild mesenteric stranding/edema near the tail of the pancreas likely related to related to mild pancreatitis. Hepatic and left renal cysts. Mild colonic diverticulosis. Mild pelvic fluid. Electronically Signed: Yong Moody DO at 21:50 EST ,
[2022-10-26] MEDS: Mag Hydrox/Al Hydrox/Simeth 30 ML UDC PO (14:05)
[2022-10-26] MEDS: Morphine 2 MG/ML Syringe 4 MG IV (17:14)
[2022-10-26] MEDS: Tamsulosin HCl 0.4 MG Capsule PO (21:13)
[2022-10-26] MEDS: Amitriptyline 25 MG Tablet PO (21:13)
[2022-10-26] MEDS: Pravastatin 40 MG Tablet 60 MG PO (21:14)
[2022-10-26] MEDS: Latanoprost 0.005% 1 Bottle 1 DRP EACH EYE (21:15)
[2022-10-26 22:45] LABS: Bedside Glucose 148 mg/dL (74-106)
[2022-10-27 02:00] VITALS: BP 137/82; PULSE 85; RESP 16; TEMP 36.6; O2SAT 97
[2022-10-27] MEDS: Ondansetron 4 MG/2 ML Vial IV (02:49)
[2022-10-27] MEDS: oxyCODONE 5 MG Tablet PO ×2 (02:49→09:08)
[2022-10-27] MEDS: 0.9% Saline Lock 10 ML Syringe IV (02:49)
[2022-10-27 03:00] VITALS: BP 137/82; PULSE 90; RESP 16; TEMP 36.8; O2SAT 93
[2022-10-27] MEDS: 0.9% Normal Saline 1,000 ML 150 ML IV (04:11)
[2022-10-27 06:32] LABS: Absolute Lymphocyte Count 2.93 X10^3/uL (0.83-4.51); Absolute Neutrophil Count 6.5 X10^3/uL (2.0-7.7); Basophil# 0.03 X10^3/uL; Basophil% 0.3 % (0-1); Eosinophil# 0.14 X10^3/uL; Eosinophils% 1.3 % (0-5); Hematocrit 35.1 % (40-54); Hemoglobin 11.9 g/dL (13.0-16.5); Lymphocyte # 2.93 X10^3/ul (0.83-4.51); Lymphocyte % 27.8 % (19-41); Mean Corp Hgb Conc 33.9 g/dL (32-36); Mean Corpuscular Hgb 32.1 pg (27.0-32.0); Mean Corpuscular Volume 94.6 fL (80-94); Mean Platelet Vol. 9.5 fl (6.2-12.0); Monocyte# 0.93 X10^3/uL; Monocyte% 8.8 % (0-10); NRBC Flagged by Analyzer 0 % (0-5); Neutrophil # 6.47 X10^3/uL (2.7-7.7); Neutrophil % 61.5 % (47-70); Platelet Count 156 K/mm3 (150-450); RBC Distribution Width CV 12.8 % (11.6-14.6); RBC Distribution Width SD 44.3 fl (35.1-43.9); Red Blood Count 3.71 M/mm3 (4.6-6.2); White Blood Count 10.5 K/mm3 (4.4-11.0)
[2022-10-27 07:10] LABS: Bedside Glucose 176 mg/dL (74-106)
[2022-10-27 07:21] LABS: ALB/GLOB Ratio 1.1 RATIO (0.9-2.4); AST(SGOT) 13 U/L (15-37); Alanine Aminotransfer ALT/SGPT 16 U/L (16-61); Albumin, Serum 3.6 g/dL (3.2-5.0); Alkaline Phosphatase 58 U/L (45-117); Anion Gap 8 (5-15); BUN 8 mg/dL (7-18); BUN/Creat Ratio 9.2 RATIO (10-20); Calcium,Total 8.5 mg/dL (8.5-10.1); Chloride 109 mmol/L (98-107); Creatinine, Serum 0.87 mg/dL (0.70-1.30); EST Glomerular Filtration Rate 97 mL/min (>60); Est Glom Filt Rate - Afr Amer 117 mL/min (>60); Estimated Creatinine Clearance 96.73 ml/min; Globulin 3.4 g/dL (2.2-4.2); Glucose 153 mg/dL (74-106); Potassium 3.7 mmol/L (3.5-5.1); Sodium Level 139 mmol/L (136-145)
[2022-10-27] MEDS: Creon 12,000 unit DR CapSULE 1 CAP PO ×2 (07:36→10:51)
[2022-10-27 09:00] VITALS: BP 143/96; PULSE 90; RESP 18; TEMP 36.6; O2SAT 94
[2022-10-27] MEDS: Gabapentin 300 MG Capsule PO (09:08)
[2022-10-27] MEDS: Folic Acid 1 MG Tablet PO (09:08)
[2022-10-27] MEDS: levETIRAcetam 500 MG Tablet PO (09:08)
[2022-10-27] MEDS: amLODIPine 10 MG Tablet PO (09:08)
[2022-10-27] MEDS: Pantoprazole Sodium 40 MG Tablet PO (09:09)
[2022-10-27] MEDS: Loratadine 10 MG Tablet PO (09:09)
[2022-10-27] MEDS: Magnesium Chloride 64 MG Delay Rel.Tablet 128 MG PO (09:09)
[2022-10-27] MEDS: Escitalopram Oxalate 10 MG Tablet PO (09:09)
[2022-10-27] MEDS: Ursodiol 250 MG Tablet PO (09:09)
[2022-10-27] MEDS: Thiamine Hydrochloride 100 MG Tablet PO (09:09)
[2022-10-27] MEDS: Cholecalciferol (Vit D3) 125 MCG CAPSULE (5,000 UNITS) PO (09:09)
[2022-10-27] MEDS: Aspirin E.C. 81 MG Tablet PO (09:09)
--- NOTE | 2022-10-27 10:21 | PCM.DC ---
Discharge Instructions Diet Discharge Diet: Low fat / Low cholesterol and Carb Control Diet Activity Discharge Activity: Return to Normal Activity Dressing / Incision Call your doctor if you observe: Fever of 101 or Higher, Shortness of breath, Dizziness, Fainting spells, Swelling in the ankles, Chest pain and Increased palpitations (irregular heartbeat) Follow Up Care Test Results: Test results from this visit will be discussed in further detail at your follow-up appointment, if applicable. Discharge Plan Admission Admit Date/Time: 10/26/22 15:41 Attending Provider: Dillon Harrell Primary Care Provider: Lobito Maldonado Consulting Providers: Mia Carr Instructions Additional Instructions / Restrictions: Get Mylanta OTC to help with any stomach pain secondary to GERD. Follow-up with Dr. Santamaria as an outpatient for possible EGD and and continued evaluation and support with your pancreatitis Discharge Orders/Prescriptions Prescriptions: Continued amitriptyline 25 mg tablet 25 mg PO QHS gabapentin 300 mg capsule 300 mg PO BID levetiracetam 500 mg tablet 500 mg PO BID Qty: 60 6RF levocarnitine 330 mg tablet 330 mg PO BID Qty: 60 5RF Rx Instructions: must administer with a meal/food nitroglycerin 0.4 MG tablet 0.4 mg sublingual Q5M PRN (Reason: Chest Pain) cholecalciferol (vitamin D3) 5,000 capsule 1 cap PO DAILY insulin glargine [Lantus U-100 Insulin] 100 UNIT/ML solution 10 unit SQ QHS latanoprost 0.005 % drops 1 drp EACH EYE QHS tamsulosin 0.4 mg Capsule 0.4 mg PO QHS pantoprazole 40 mg Tablet,Delayed Release (Dr/Ec) 40 mg PO DAILY pravastatin 40 mg Tablet 60 mg PO QHS magnesium oxide 400 mg (241.3 mg magnesium) tablet 400 mg PO BID metformin 500 MG tablet 500 mg PO BID Qty: 0 0RF Hold Instructions: Hold for 3 days aspirin 81 mg Tablet,Delayed Release (Dr/Ec) 81 mg PO DAILY losartan 25 mg tablet 25 mg PO DAILY fluticasone propionate [Flonase Allergy Relief] 50 mcg/actuation [place],Suspension 2 spray INTRANASAL DAILY escitalopram oxalate 10 mg tablet 10 mg PO DAILY loratadine 10 MG capsule 10 mg PO DAILY omega-3 fatty acids-fish oil 684-1,200 mg Capsule,Delayed Release(Dr/Ec) 2 cap PO DAILY naproxen 500 mg tablet 500 mg PO BID PRN (Reason: Pain) simethicone [Gas Relief 80 (simethicone)] 80 mg Tablet,Chewable 80 mg PO DAILY PRN (Reason: gas relief) thiamine HCl (vitamin B1) [Vitamin B-1] 100 mg Tablet 100 mg PO BREAKFAST Qty: 30 0RF folic acid 1 mg Tablet 1 mg PO BREAKFAST Qty: 30 0RF Creon 12,000-38,000 -60,000 unit capsule,delayed release(DR/EC) 1 cap PO .TIDAC 30 Days Qty: 90 2RF Rx Instructions: administer with meals and/or snacks hydrochlorothiazide 25 mg tablet 25 mg PO DAILY Qty: 30 11RF Hold Instructions: Hold for 3 days and start with 12.5 mg, half tablet daily. amlodipine 10 mg tablet 10 mg PO DAILY Qty: 90 3RF ursodiol 250 mg tablet 250 mg PO BID Qty: 180 1RF Referrals / Follow Up: Taras Santamaria DO [Med Staff - Active Staff] - Within 1 Month Lobito Maldonado MD [Primary Care Provider] - Within 1 Week Disposition Disposition (needs filled in before D/C Order can be placed): Home, Self Care
--- NOTE | 2022-10-27 11:12 | PCM.DC.SUM ---
Providers Date of Admission: 10/26/22 Primary Care Physician: Dr. Lobito Maldonado MD Reason For Visit: ACUTE RE CURRENT PANCREATITIS Diagnosis Discharge Diagnosis (1) Acute recurrent pancreatitis: Status: Acute Code(s): K85.90 - Acute pancreatitis without necrosis or infection, unspecified Medications at Discharge Home Medications nitroglycerin 0.4 mg sublingual tablet 0.4 mg sublingual Q5M PRN Chest Pain 07/15/13 amitriptyline 25 mg tablet 25 mg PO QHS depression 07/03/18 cholecalciferol (vitamin D3) 125 mcg (5,000 unit) capsule 1 cap PO DAILY supplement 11/09/18 hydrochlorothiazide 25 mg tablet 25 mg PO DAILY blood pressure/heart #30 tabs 06/05/20 gabapentin 300 mg capsule 300 mg PO BID nerve pain 10/06/20 insulin glargine 100 unit/mL subcutaneous solution (Lantus U-100 Insulin) 10 unit SQ QHS diabetes 12/30/20 latanoprost 0.005 % eye drops 1 drp EACH EYE QHS glaucoma 12/07/21 magnesium oxide 400 mg (241.3 mg magnesium) tablet 400 mg PO BID supplement 02/27/22 pantoprazole 40 mg tablet,delayed release 40 mg PO DAILY gerd 02/27/22 pravastatin 40 mg tablet 60 mg PO QHS cholesterol 02/27/22 tamsulosin 0.4 mg capsule 0.4 mg PO QHS prostate 02/27/22 metformin 500 mg tablet 500 mg PO BID diabetes #0 tabs 03/04/22 aspirin 81 mg tablet,delayed release 81 mg PO DAILY heart health 07/04/22 escitalopram oxalate 10 mg tablet 10 mg PO DAILY depression 07/04/22 fluticasone propionate 50 mcg/actuation nasal spray,suspension (Flonase Allergy Relief) 2 spray intranasal DAILY allergies 07/04/22 loratadine 10 mg capsule 10 mg PO DAILY allergies 07/04/22 losartan 25 mg tablet 25 mg PO DAILY blood pressure 07/04/22 omega-3 fatty acids-fish oil 684 mg-1,200 mg capsule,delayed release 2 cap PO DAILY supplement 07/04/22 amlodipine 10 mg tablet 10 mg PO DAILY blood pressure #90 tabs 07/27/22 levetiracetam 500 mg tablet 500 mg PO BID seizures #60 tabs 08/08/22 naproxen 500 mg tablet 500 mg PO BID PRN Pain 09/06/22 simethicone 80 mg chewable tablet (Gas Relief 80 (simethicone)) 80 mg PO DAILY PRN gas relief 09/06/22 folic acid 1 mg tablet 1 mg PO BREAKFAST #30 tabs 09/08/22 lvngby-yiaoatin-tgifxqs 12,000-38,000-60,000 unit capsule,delayed rel (Creon) 1 cap PO .TIDAC 30 days #90 caps 09/08/22 thiamine HCl (vitamin B1) 100 mg tablet (Vitamin B-1) 100 mg PO BREAKFAST #30 tabs 09/08/22 ursodiol 250 mg tablet 250 mg PO BID liver fibrosis #180 tabs 09/21/22 levocarnitine 330 mg tablet 330 mg PO BID #60 tabs 09/28/22 Hospital Course Operations None Procedures None Summary of Care Provided Minutes Spent on Discharge: 42 Hospital Course: Per HPI: BRANDON WELLER, is a 57 M who presents with the above.? Patient has past medical history of recurrent pancreatitis, previous episodes were related to alcohol.? Patient stated that since his last discharge on 09/08/22, he has quit drinking alcohol.? He was in his usual state of health until this afternoon when he had sudden onset of abdominal discomfort was associated with nausea.? Abdominal pain felt very much like previous pancreatitis.? He denied any new medications.? He has had his gallbladder taken out. Vitals in ED showed blood pressure 126/102, heart rate 109, respiratory rate 14, temperature 98F, oxygen sat is 99% on room air.? WBC 15.6, hemoglobin 14.1, platelet count 211.? CMP unremarkable except for BUN 22, creatinine 1.13, previous creatinine 0.82.? LFTs unremarkable.? Lipase 930 Hospital Course: 1. Acute on chronic mild pancreatitis?57-year-old male who has had recurrent episodes of pancreatitis presents to the hospital with epigastric abdominal pain. His lipase was slightly elevated to [address] scan was done on admission however yesterday he did have a CT scan with contrast which demonstrated mild pancreatitis in his tail with surrounding inflammation. I discussed the case with gastroenterology who had been seeing him as an outpatient and they felt that he did not have any autoimmune component to his pancreatitis based on previous studies and this was all likely related to his alcohol use. He did have significant improvement with GI cocktail indicative of potential gastritis/peptic ulcer disease culprit for his abdominal pain as well. He is on a PPI and I discussed with him to continue taking Mylanta or another vopr-hsk-kgykolb medication until he could see gastroenterology as an outpatient. This was relayed to them as well so he may benefit from an EGD as an outpatient. He is feeling much better today and I discussed with him the possibility for discharge and he expressed understanding of the risk benefits going home and he would like to go home today. 2. Hypertension, type 2 diabetes, seizure disorder, anxiety, depression, hyperlipidemia are all chronic medical conditions which complicate his care. His home medications were continued where appropriate Physical Exam Narrative General: Alert, Oriented x3, Cooperative, No apparent distress HEENT: Atraumatic, PERRLA, EOMI, Normocephalic Oral: Moist Mucosa Neck: Supple, No JVD Lungs: Clear to auscultation, Normal air movement, No rhonchi, No wheeze, No rales Cardiovascular: Regular rate, Regular Rhythm, Normal S1, Normal S2, No murmurs Abdomen: Soft, mild epigastric tenderness to palpation, Non-Distended, No Hepato-splenomegaly Extremities: No edema, Capillary Refill Less than 3 Seconds Skin: No rashes, No breakdown Musculoskeletal: No Tenderness to Palpation of Joints or Extremities Neurological: Cranial nerves II-XII grossly intact, Motor Exam 5/5 strength throughout, Sensory exam intact to light touch and pain Psych/Mental Status: Normal Affect, Appropriate Weight / BMI Weight Weight: 182 lb 8.684 oz Body Mass Index (BMI) 26.1 ABG / Lab / Microbiology Data Result Diagrams: 10/27/22 05:56 10/27/22 05:56 Laboratory: Laboratory Results - last 24 hr 10/26/22 21:09: POC Glucose 148 H 10/27/22 05:56: WBC 10.5, RBC 3.71 L, Hgb 11.9 L, Hct 35.1 L, MCV 94.6 H, MCH 32.1 H, MCHC 33.9, RDW Std Deviation 44.3 H, RDW Coeff of Armin 12.8, Plt Count 156, MPV 9.5, Immature Gran % (Auto) 0.300, Neut % (Auto) 61.5, Lymph % (Auto) 27.8, [place] % (Auto) 8.8, Eos % (Auto) 1.3, Baso % (Auto) 0.3, Absolute Neuts (auto) 6.5, Absolute Lymphs (auto) 2.93, Nucleated RBC % 0 10/27/22 05:56: Sodium 139, Potassium 3.7, Chloride 109 H, Carbon Dioxide 22.0, Anion Gap 8, BUN 8, Creatinine 0.87, Estim Creat Clear Calc 96.73, Est GFR (MDRD) Af Amer 117, Est GFR (MDRD) Non-Af 97, BUN/Creatinine Ratio 9.2 L, Glucose 153 H, Calcium 8.5, Total Bilirubin 1.00, AST 13 L, ALT 16, Alkaline Phosphatase 58, Total Protein 7.0, Albumin 3.6, Globulin 3.4, Albumin/Globulin Ratio 1.1 10/27/22 06:50: POC Glucose 176 H Radiography Diagnostic Testing: Radiology Impression Abdomen/Pelvis CT 10/26/22 13:45 IMPRESSION: Mild mesenteric stranding/edema near the tail of the pancreas likely related to related to mild pancreatitis. Hepatic and left renal cysts. Mild colonic diverticulosis. Mild pelvic fluid. Electronically Signed: Yong Moody DO at 21:50 EST Reading Location ID and State: [address] [place] [address] Tel [phone], Service support , D/C Instructions Discharge Diet: Low fat / Low cholesterol and Carb Control Diet Call your doctor if you observe: Fever of 101 or Higher, Shortness of breath, Dizziness, Fainting spells, Swelling in the ankles, Chest pain and Increased palpitations (irregular heartbeat) Meaningful Use Info Meaningful Use Diagnoses (Choose all that apply): None applicable Discharge Plan Admission Admit Date/Time: 10/26/22 15:41 Attending Provider: Dillon Harrell Primary Care Provider: Lobito Maldonado Consulting Providers: Mia Carr Instructions Additional Instructions / Restrictions: Get Mylanta OTC to help with any stomach pain secondary to GERD. Follow-up with Dr. Santamaria as an outpatient for possible EGD and and continued evaluation and support with your pancreatitis Discharge Orders/Prescriptions Prescriptions: Continued amitriptyline 25 mg tablet 25 mg PO QHS gabapentin 300 mg capsule 300 mg PO BID levetiracetam 500 mg tablet 500 mg PO BID Qty: 60 6RF levocarnitine 330 mg tablet 330 mg PO BID Qty: 60 5RF Rx Instructions: must administer with a meal/food nitroglycerin 0.4 MG tablet 0.4 mg sublingual Q5M PRN (Reason: Chest Pain) cholecalciferol (vitamin D3) 5,000 capsule 1 cap PO DAILY insulin glargine [Lantus U-100 Insulin] 100 UNIT/ML solution 10 unit SQ QHS latanoprost 0.005 % drops 1 drp EACH EYE QHS tamsulosin 0.4 mg Capsule 0.4 mg PO QHS pantoprazole 40 mg Tablet,Delayed Release (Dr/Ec) 40 mg PO DAILY pravastatin 40 mg Tablet 60 mg PO QHS magnesium oxide 400 mg (241.3 mg magnesium) tablet 400 mg PO BID metformin 500 MG tablet 500 mg PO BID Qty: 0 0RF Hold Instructions: Hold for 3 days aspirin 81 mg Tablet,Delayed Release (Dr/Ec) 81 mg PO DAILY losartan 25 mg tablet 25 mg PO DAILY fluticasone propionate [Flonase Allergy Relief] 50 mcg/actuation [place],Suspension 2 spray INTRANASAL DAILY escitalopram oxalate 10 mg tablet 10 mg PO DAILY loratadine 10 MG capsule 10 mg PO DAILY omega-3 fatty acids-fish oil 684-1,200 mg Capsule,Delayed Release(Dr/Ec) 2 cap PO DAILY naproxen 500 mg tablet 500 mg PO BID PRN (Reason: Pain) simethicone [Gas Relief 80 (simethicone)] 80 mg Tablet,Chewable 80 mg PO DAILY PRN (Reason: gas relief) thiamine HCl (vitamin B1) [Vitamin B-1] 100 mg Tablet 100 mg PO BREAKFAST Qty: 30 0RF folic acid 1 mg Tablet 1 mg PO BREAKFAST Qty: 30 0RF Creon 12,000-38,000 -60,000 unit capsule,delayed release(DR/EC) 1 cap PO .TIDAC 30 Days Qty: 90 2RF Rx Instructions: administer with meals and/or snacks hydrochlorothiazide 25 mg tablet 25 mg PO DAILY Qty: 30 11RF Hold Instructions: Hold for 3 days and start with 12.5 mg, half tablet daily. amlodipine 10 mg tablet 10 mg PO DAILY Qty: 90 3RF ursodiol 250 mg tablet 250 mg PO BID Qty: 180 1RF Referrals / Follow Up: Friend,Taras, DO [Med Staff - Active Staff] - 12/23/22 1:00 pm Lobito Maldonado MD [Primary Care Provider] - 10/31/22 6:40 pm Disposition Disposition (needs filled in before D/C Order can be placed): Home, Self Care Charges/Coding Visit Charges Inpatient E&M: 01092 Disch Hosp >30min
--- NOTE | 2022-10-27 12:00 | CASEMGMT ---
RN SAMUEL Face to Face with patient for initial transition planning/care coordination assessment. RN CM introduced self and role at [facility]. Patient sitting at the edge of bed, alert and oriented. Patient willing to participate in assessment and is able to answer all questions appropriately. Care providers, pharmacy, and demographics verified. Patient wishes to discharge home, denies need for home health at this time. Patient states he has no further needs or concerns at this time. CM to follow for discharge planning needs that may arise. PCP: Joel Specialists: Friend, GI; Mary Burnett Preferred Pharmacy: [facility] Insurance: [employer] Prescription Benefit: yes Living Will/HPOA: none LNOK: sister Living Arrangements: Patient lives alone in a first floor apartment with 5 steps and railing to enter the home. Transportation: Provide a ride, bus DME/HHC: Patient has glucometer with supplies at home. No previous HHC or SNF Disposition Plan: Patient to discharge home with family support and follow-up plans in place. Carmel SUN, RN, CM
== END 2022-10-27 12:11 | disposition home or self-care (01) | DRG 440 ==
LOC: ED 21:19 → PCU 10-26 00:46
PROVIDERS: Admitting Provider Internal Medicine; Emergency Provider Student in an Organized Health Care Education/Training Program; PCP Internal Medicine; Visit Provider Family Medicine
DX: K85.20 Alcohol induced acute pancreatitis without necrosis or infection (principal); E11.42 Type 2 diabetes mellitus with diabetic polyneuropathy; E11.65 Type 2 diabetes mellitus with hyperglycemia; G40.909 Epilepsy, unspecified, not intractable, without status epilepticus; Z79.4 Long term (current) use of insulin; K86.0 Alcohol-induced chronic pancreatitis; I10 Essential (primary) hypertension; E78.5 Hyperlipidemia, unspecified; K21.9 Gastro-esophageal reflux disease without esophagitis; F41.9 Anxiety disorder, unspecified; F10.11 Alcohol abuse, in remission; K27.9 Peptic ulcer, site unspecified, unspecified as acute or chronic, without hemorrhage or perforation; G89.29 Other chronic pain; F32.A Depression, unspecified; Z79.82 Long term (current) use of aspirin; Z79.899 Other long term (current) drug therapy; Z87.891 Personal history of nicotine dependence
CPT/HCPCS: 36415; 74177; 80048; 80053; 80076; 81001; 82077; 82962; 83690; 85025; 99284; J7030; Q9967; A4216; J2405

== ENCOUNTER 2022-11-09 16:15 | Emergency (ER) | payer MEDICARE, MEDICAID, SELFPAY ==
[2022-11-09 16:15] VITALS: BP 142/85; PULSE 111; RESP 18; TEMP 35.5; O2SAT 98; BMI 27.2
--- NOTE | 2022-11-09 16:33 | EDS_ITS ---
HPI HPI - GI History of Present Illness Chief Complaint: Abd Pain Informant: patient Narrative Narrative: Patient started with some epigastric pain this morning. He is not drinking alcohol. He does have a history of pancreatitis. He is on and has been taking his Creon. He states he was fine until this morning. He had a little bit of epigastric discomfort. He took some Maalox and that calm it down. But then it started to come back during the day. He states that starting to move toward his back which would be typical for pancreatitis. He has had some mild nausea but no vomiting. He does not have any meds for nausea at home. He has had prior cholecystectomy 4 years ago. He is still moving his bowels. He had 2 bowel movements today that were normal. No blood was seen. [facility] Medical History Acute pancreatitis Acute recurrent pancreatitis Alcohol abuse Anxiety Anxiety and depression Cancer Cerebrovascular disease Chronic hip pain Chronic pain Constipation Depression Diabetes Diabetes mellitus type 2 in nonobese Essential (primary) hypertension Family history of cerebral aneurysm Former smoker Former tobacco use Gastric ulcer GERD (gastroesophageal reflux disease) GERD (gastroesophageal reflux disease) GI bleed Glaucoma Hyperlipidemia Hypertension Myocardial infarct Neck pain Other generalized epilepsy and epileptic syndromes, not intractable, without status epilepticus Pancreatitis Polyneuropathy PSA elevation PTSD (post-traumatic stress disorder) Seizure disorder Seizures Stroke/cerebrovascular accident TIA (transient ischemic attack) Type 2 diabetes mellitus Vision loss of left eye Vision loss of right eye Home Medications nitroglycerin 0.4 mg sublingual tablet 0.4 mg sublingual Q5M PRN Chest Pain 07/15/13 [History Last Taken 08/22/15] amitriptyline 25 mg tablet 25 mg PO QHS depression 07/03/18 [History Last Taken 09/05/22] cholecalciferol (vitamin D3) 125 mcg (5,000 unit) capsule 1 cap PO DAILY supplement 11/09/18 [History Last Taken 09/06/22] hydrochlorothiazide 25 mg tablet 25 mg PO DAILY blood pressure/heart #30 tabs 06/05/20 [Rx Last Taken 09/06/22] gabapentin 300 mg capsule 300 mg PO BID nerve pain 10/06/20 [History Last Taken 09/05/22] insulin glargine 100 unit/mL subcutaneous solution (Lantus U-100 Insulin) 10 unit SQ QHS diabetes 12/30/20 [History Last Taken 09/04/22] latanoprost 0.005 % eye drops 1 drp EACH EYE QHS glaucoma 12/07/21 [History Last Taken 09/05/22] magnesium oxide 400 mg (241.3 mg magnesium) tablet 400 mg PO BID supplement 02/27/22 [History Last Taken 09/06/22] pantoprazole 40 mg tablet,delayed release 40 mg PO DAILY gerd 02/27/22 [History Last Taken 09/06/22] pravastatin 40 mg tablet 60 mg PO QHS cholesterol 02/27/22 [History Last Taken 09/05/22] tamsulosin 0.4 mg capsule 0.4 mg PO QHS prostate 02/27/22 [History Last Taken 09/05/22] metformin 500 mg tablet 500 mg PO BID diabetes #0 tabs 03/04/22 [Rx Last Taken 09/06/22] aspirin 81 mg tablet,delayed release 81 mg PO DAILY heart health 07/04/22 [History Last Taken 09/06/22] escitalopram oxalate 10 mg tablet 10 mg PO DAILY depression 07/04/22 [History Last Taken 09/06/22] fluticasone propionate 50 mcg/actuation nasal spray,suspension (Flonase Allergy Relief) 2 spray intranasal DAILY allergies 07/04/22 [History Last Taken 09/04/22] loratadine 10 mg capsule 10 mg PO DAILY allergies 07/04/22 [History Last Taken 09/06/22] losartan 25 mg tablet 25 mg PO DAILY blood pressure 07/04/22 [History Last Taken 09/06/22] omega-3 fatty acids-fish oil 684 mg-1,200 mg capsule,delayed release 2 cap PO DAILY supplement 07/04/22 [History Last Taken 09/06/22] amlodipine 10 mg tablet 10 mg PO DAILY blood pressure #90 tabs 07/27/22 [Rx Last Taken 09/06/22] levetiracetam 500 mg tablet 500 mg PO BID seizures #60 tabs 08/08/22 [Rx Last Taken 09/06/22] naproxen 500 mg tablet 500 mg PO BID PRN Pain 09/06/22 [History Last Taken Unknown] simethicone 80 mg chewable tablet (Gas Relief 80 (simethicone)) 80 mg PO DAILY PRN gas relief 09/06/22 [History Last Taken Unknown] folic acid 1 mg tablet 1 mg PO BREAKFAST #30 tabs 09/08/22 [Rx Last Taken Unknown] [id number] 12,000-38,000-60,000 unit capsule,delayed rel (Creon) 1 cap PO .TIDAC 30 days #90 caps 09/08/22 [Rx Last Taken Unknown] thiamine HCl (vitamin B1) 100 mg tablet (Vitamin B-1) 100 mg PO BREAKFAST #30 tabs 09/08/22 [Rx Last Taken Unknown] ursodiol 250 mg tablet 250 mg PO BID liver fibrosis #180 tabs 09/21/22 [Rx Last Taken Unknown] levocarnitine 330 mg tablet 330 mg PO BID #60 tabs 09/28/22 [Rx Last Taken Unknown] Allergy/AdvReac Type Severity Reaction Status Date / Time lisinopril Allergy Angioedema Verified 11/09/22 16:17 cyclobenzaprine AdvReac Severe Skin Verified 11/09/22 16:17 crawling Iodinated Contrast Media AdvReac Intermediate ITCHY FEET Verified 11/09/22 16:17 [iodine contrast] hydrocodone bitartrate AdvReac Itching Verified 11/09/22 16:17 [From Vicodin] hydromorphone [From Dilaudid] AdvReac Itching Verified 11/09/22 16:17 morphine AdvReac Itching Verified 11/09/22 16:17 tramadol AdvReac Itching Verified 11/09/22 16:17 Family History Mother Heart disease Sister Cerebral aneurysm Surgical History History of cholecystectomy (12/2013) History of left heart catheterization (10/31/11) Social History Smoking Status: Former smoker Tobacco: How many years used: 7 Electronic Cigarette Use: not used alcohol intake: former details: states a couple beers every now on then, does not have daily substance use type: does not use caffeine: No robbin/presybeterian: Faith seatbelt use: always ROS ROS ED Constitutional Constitutional ED: Denies chills or fever(s) ENT ENT ED: Denies rhinorrhea or sore throat Cardiovascular Cardiovascular: Denies chest pain or palpitations Respiratory/Chest Respiratory/Chest: Denies cough Gastrointestinal Gastrointestinal: Reports abdominal pain and nausea; Denies constipation, gisella rrhea, melena or vomiting Genitourinary Genitourinary ED: Denies dysuria, hematuria or urinary frequency Musculoskeletal Musculoskeletal: Reports back pain and other Details: Starting to get pain moving toward his back but not quite there. ; Denies neck pain Neurologic Neurologic: Denies paresthesias or weakness Endocrine Endocrinology: Denies polyuria Hematologic/Lymphatic Hematologic/Lymphatic: Denies easy bleeding or easy bruising Allergic/Immunologic Allergic/Immunologic ED: Denies urticaria EXAM Physical Exam Narrative Exam Narrative: Patient is awake alert nontoxic sitting in bed. Carries on normal conversation HEENT: Mucous membranes still do appear moist. No sign of trauma Neck shows no JVD Lungs are clear bilaterally. No rales or rhonchi. Heart is regular without murmur gallop or rub Abdomen is soft he has minimal if any epigastric tenderness. He has slight rash in the epigastrium that looks consistent with a nickel allergy. This is evidently chronic and not new or different. No CVA tenderness. No suprapubic tenderness Extremities show no edema or tenderness. Const Vital Signs: 11/09/22 16:15 Temperature 96 F L Temperature Source Temporal Pulse Rate 111 H Respiratory Rate 18 Blood Pressure 142/85 H Blood Pressure Mean 104 Pulse Ox 98 Oxygen Delivery Method Room Air MDM MDM MDM Narrative Medical decision making narrative: Patient CBC showed minimal elevation of white count at 12.0 which is nonspecific and can be a stress response. Hemoglobin and platelets are normal. Electrolytes showed mild elevation in creatinine at 1.32. He is given IV fluids here. Remainder of electrolytes look good. Glucose was high at 346. Fluids should help this also. Liver function test look normal but his lipase was up at 525. This was lower than his recent level but still abnormal. Patient was evidently having more pain. We ordered some Dilaudid and Benadryl which he needs to take with his pain meds. Nurse went back to given the patient had evidently left. We could not find him in the department. We could not find the IV that he had. Her charge nurse is making calls trying to obtain his current location so we can track him down and make sure his IV gets removed safely. Lab Data Attestation: I reviewed the patient's lab results. Labs: Laboratory Results - last 24 hr 11/09/22 11/09/22 16:40 16:40 WBC 12.0 H RBC 4.40 L Hgb 13.8 Hct 41.5 MCV 94.3 H MCH 31.4 MCHC 33.3 RDW Std Deviation 42.9 RDW Coeff of Armin 12.4 Plt Count 204 MPV 9.8 Immature Gran % (Auto) 0.300 Neut % (Auto) 70.1 H Lymph % (Auto) 21.8 [place] % (Auto) 6.2 Eos % (Auto) 1.1 Baso % (Auto) 0.5 Absolute Neuts (auto) 8.4 H Absolute Lymphs (auto) 2.61 Nucleated RBC % 0 Sodium 139 Potassium 4.0 Chloride 104 Carbon Dioxide 26.0 Anion Gap 9 BUN 19 H Creatinine 1.32 H Estim Creat Clear Calc 63.75 Est GFR (MDRD) Af Amer 72 Est GFR (MDRD) Non-Af 59 L BUN/Creatinine Ratio 14.4 Glucose 346 H Calcium 9.4 Magnesium 2.1 Total Bilirubin 0.70 AST 13 L ALT 18 Alkaline Phosphatase 69 Total Protein 8.1 Albumin 4.4 Globulin 3.7 Albumin/Globulin Ratio 1.2 Lipase 525 H Discharge Plan Triage Chief Complaint: Abd Pain ED Provider: Magno Mora Dx/Rx/DC Orders Clinical Impression: Pancreatitis, Abdominal pain, Hyperglycemia, Eloped from emergency department Prescriptions: No Action amitriptyline 25 mg tablet 25 mg PO QHS gabapentin 300 mg capsule 300 mg PO BID levetiracetam 500 mg tablet 500 mg PO BID Qty: 60 6RF levocarnitine 330 mg tablet 330 mg PO BID Qty: 60 5RF Rx Instructions: must administer with a meal/food nitroglycerin 0.4 MG tablet 0.4 mg sublingual Q5M PRN (Reason: Chest Pain) cholecalciferol (vitamin D3) 5,000 capsule 1 cap PO DAILY insulin glargine [Lantus U-100 Insulin] 100 UNIT/ML solution 10 unit SQ QHS latanoprost 0.005 % drops 1 drp EACH EYE QHS tamsulosin 0.4 mg Capsule 0.4 mg PO QHS pantoprazole 40 mg Tablet,Delayed Release (Dr/Ec) 40 mg PO DAILY pravastatin 40 mg Tablet 60 mg PO QHS magnesium oxide 400 mg (241.3 mg magnesium) tablet 400 mg PO BID metformin 500 MG tablet 500 mg PO BID Qty: 0 0RF Hold Instructions: Hold for 3 days aspirin 81 mg Tablet,Delayed Release (Dr/Ec) 81 mg PO DAILY losartan 25 mg tablet 25 mg PO DAILY fluticasone propionate [Flonase Allergy Relief] 50 mcg/actuation [place],Suspension 2 spray INTRANASAL DAILY escitalopram oxalate 10 mg tablet 10 mg PO DAILY loratadine 10 MG capsule 10 mg PO DAILY omega-3 fatty acids-fish oil 684-1,200 mg Capsule,Delayed Release(Dr/Ec) 2 cap PO DAILY naproxen 500 mg tablet 500 mg PO BID PRN (Reason: Pain) simethicone [Gas Relief 80 (simethicone)] 80 mg Tablet,Chewable 80 mg PO DAILY PRN (Reason: gas relief) thiamine HCl (vitamin B1) [Vitamin B-1] 100 mg Tablet 100 mg PO BREAKFAST Qty: 30 0RF folic acid 1 mg Tablet 1 mg PO BREAKFAST Qty: 30 0RF Creon 12,000-38,000 -60,000 unit capsule,delayed release(DR/EC) 1 cap PO .TIDAC 30 Days Qty: 90 2RF Rx Instructions: administer with meals and/or snacks hydrochlorothiazide 25 mg tablet 25 mg PO DAILY Qty: 30 11RF Hold Instructions: Hold for 3 days and start with 12.5 mg, half tablet daily. amlodipine 10 mg tablet 10 mg PO DAILY Qty: 90 3RF ursodiol 250 mg tablet 250 mg PO BID Qty: 180 1RF Primary Care Provider: Lobito Maldonado Referrals: Lobito Maldonado MD [Primary Care Provider] - Disposition Disposition: Elopement Discharge Date/Time: 11/09/22 19:00
[2022-11-09] MEDS: 0.9% Normal Saline 1,000 ML 1000 ML IV (16:39)
[2022-11-09 16:49] LABS: Absolute Lymphocyte Count 2.61 X10^3/uL (0.83-4.51); Absolute Neutrophil Count 8.4 X10^3/uL (2.0-7.7); Basophil# 0.06 X10^3/uL; Basophil% 0.5 % (0-1); Eosinophil# 0.13 X10^3/uL; Eosinophils% 1.1 % (0-5); Hematocrit 41.5 % (40-54); Hemoglobin 13.8 g/dL (13.0-16.5); Lymphocyte # 2.61 X10^3/ul (0.83-4.51); Lymphocyte % 21.8 % (19-41); Mean Corp Hgb Conc 33.3 g/dL (32-36); Mean Corpuscular Hgb 31.4 pg (27.0-32.0); Mean Corpuscular Volume 94.3 fL (80-94); Mean Platelet Vol. 9.8 fl (6.2-12.0); Monocyte# 0.74 X10^3/uL; Monocyte% 6.2 % (0-10); NRBC Flagged by Analyzer 0 % (0-5); Neutrophil # 8.38 X10^3/uL (2.7-7.7); Neutrophil % 70.1 % (47-70); Platelet Count 204 K/mm3 (150-450); RBC Distribution Width CV 12.4 % (11.6-14.6); RBC Distribution Width SD 42.9 fl (35.1-43.9)
[2022-11-09] MEDS: Ondansetron 4 MG/2 ML Vial IV (17:00)
[2022-11-09 17:07] LABS: ALB/GLOB Ratio 1.2 RATIO (0.9-2.4); AST(SGOT) 13 U/L (15-37); Alanine Aminotransfer ALT/SGPT 18 U/L (16-61); Albumin, Serum 4.4 g/dL (3.2-5.0); Alkaline Phosphatase 69 U/L (45-117); Anion Gap 9 (5-15); BUN 19 mg/dL (7-18); BUN/Creat Ratio 14.4 RATIO (10-20); Calcium,Total 9.4 mg/dL (8.5-10.1); Chloride 104 mmol/L (98-107); Creatinine, Serum 1.32 mg/dL (0.70-1.30); EST Glomerular Filtration Rate 59 mL/min (>60); Est Glom Filt Rate - Afr Amer 72 mL/min (>60); Estimated Creatinine Clearance 63.75 ml/min; Globulin 3.7 g/dL (2.2-4.2); Glucose 346 mg/dL (74-106); Lipase 525 U/L (73-393); Magnesium 2.1 mg/dL (1.6-2.6); Protein, Total 8.1 g/dL (6.4-8.2); Sodium Level 139 mmol/L (136-145)
--- NOTE | 2022-11-09 18:40 | ED.RN ---
THIS RN WENT TO MEDICATE PT AND PT IS NOT IN ROOM. GOWN ON BED AND IV CATHETER NOT ABLE TO BE LOCATED. DR SUGGS AND CHARGE NURSE FRANCISCO MADE AWARE. DISPATCH NOTIFIED AND QUANTROS FILLED OUT.
--- NOTE | 2022-11-09 20:10 | ED.RN ---
PATIENT CALLED BACK IN AND SPOKE WITH PATIENT IN REFERENCE TO HAVING IV LEFT IN HIS ARM. PATIENT STATES THAT IV IS STILL IN HIS ARM AND HE HAS NO INTENTIONS TO REMOVING IV AT THIS TIME. PATIENT STATES HE PLANS ON COMING BACK IN DUE TO PAIN AND HES LEAVING IT IN UNTIL HE RETURNS. HRO NOTIFIED AND IS GOING TO MAKE CONTACT WITH PATIENT TO HAVE PATIENT REMOVE IT.
== END 2022-11-09 19:00 | disposition left against medical advice (07) ==
PROVIDERS: Emergency Provider Emergency Medicine; PCP Internal Medicine; Visit Provider Emergency Medicine
DX: K85.90 Acute pancreatitis without necrosis or infection, unspecified (principal); E11.65 Type 2 diabetes mellitus with hyperglycemia; I10 Essential (primary) hypertension; Z87.891 Personal history of nicotine dependence; Z53.29 Procedure and treatment not carried out because of patient's decision for other reasons
CPT/HCPCS: 80053; 83690; 83735; 85025; 96365; 96375; 99284; J7030; A4216; J2405; J3490

== ENCOUNTER 2022-11-09 20:41 | Emergency (ER) | payer MEDICARE, MEDICAID, SELFPAY ==
[2022-11-09 20:42] VITALS: BP 144/92; PULSE 104; RESP 16; TEMP 36.6; O2SAT 100; BMI 27.2
--- NOTE | 2022-11-09 23:39 | EDS_ITS ---
HPI HPI - GI History of Present Illness Chief Complaint: Abd Pain Narrative Narrative: 57-year-old male past medical history of hypertension, chronic pancreatitis with frequent exacerbation, GERD, presents with epigastric abdominal pain similar to his previous pancreatitis that he has had in the past. He states his symptoms started this morning. He was nauseated but did not vomit. He has had 2 normal bowel movements today. He saw his primary care provider yesterday. He presents back to the emergency department because he states he was seen here earlier at around 4 PM, and must have passed out in the bed, and decided to leave because he stated that the physician did not tell him his lab results. He left with his IV in place, and states that the police came to his house, and witnessed him take out his IV. He presents because he wants to know what his laboratory results are, and he is having continued pain in the epigastrium. He usually receives Dilaudid and Benadryl. He denies any fevers or chills, no change since he eloped from the emergency department. He called EMS, and has been in triage. [facility] Medical History Acute pancreatitis Acute recurrent pancreatitis Alcohol abuse Anxiety Anxiety and depression Cancer Cerebrovascular disease Chronic hip pain Chronic pain Constipation Depression Diabetes Diabetes mellitus type 2 in nonobese Essential (primary) hypertension Family history of cerebral aneurysm Former smoker Former tobacco use Gastric ulcer GERD (gastroesophageal reflux disease) GERD (gastroesophageal reflux disease) GI bleed Glaucoma Hyperlipidemia Hypertension Myocardial infarct Neck pain Other generalized epilepsy and epileptic syndromes, not intractable, without status epilepticus Pancreatitis Polyneuropathy PSA elevation PTSD (post-traumatic stress disorder) Seizure disorder Seizures Stroke/cerebrovascular accident TIA (transient ischemic attack) Type 2 diabetes mellitus Vision loss of left eye Vision loss of right eye Home Medications nitroglycerin 0.4 mg sublingual tablet 0.4 mg sublingual Q5M PRN Chest Pain 07/15/13 [History Last Taken 08/22/15] amitriptyline 25 mg tablet 25 mg PO QHS depression 07/03/18 [History Last Taken 09/05/22] cholecalciferol (vitamin D3) 125 mcg (5,000 unit) capsule 1 cap PO DAILY supplement 11/09/18 [History Last Taken 09/06/22] hydrochlorothiazide 25 mg tablet 25 mg PO DAILY blood pressure/heart #30 tabs 06/05/20 [Rx Last Taken 09/06/22] gabapentin 300 mg capsule 300 mg PO BID nerve pain 10/06/20 [History Last Taken 09/05/22] insulin glargine 100 unit/mL subcutaneous solution (Lantus U-100 Insulin) 10 unit SQ QHS diabetes 12/30/20 [History Last Taken 09/04/22] latanoprost 0.005 % eye drops 1 drp EACH EYE QHS glaucoma 12/07/21 [History Last Taken 09/05/22] magnesium oxide 400 mg (241.3 mg magnesium) tablet 400 mg PO BID supplement 02/27/22 [History Last Taken 09/06/22] pantoprazole 40 mg tablet,delayed release 40 mg PO DAILY gerd 02/27/22 [History Last Taken 09/06/22] pravastatin 40 mg tablet 60 mg PO QHS cholesterol 02/27/22 [History Last Taken 09/05/22] tamsulosin 0.4 mg capsule 0.4 mg PO QHS prostate 02/27/22 [History Last Taken 09/05/22] metformin 500 mg tablet 500 mg PO BID diabetes #0 tabs 03/04/22 [Rx Last Taken 09/06/22] aspirin 81 mg tablet,delayed release 81 mg PO DAILY heart health 07/04/22 [History Last Taken 09/06/22] escitalopram oxalate 10 mg tablet 10 mg PO DAILY depression 07/04/22 [History Last Taken 09/06/22] fluticasone propionate 50 mcg/actuation nasal spray,suspension (Flonase Allergy Relief) 2 spray intranasal DAILY allergies 07/04/22 [History Last Taken 09/04/22] loratadine 10 mg capsule 10 mg PO DAILY allergies 07/04/22 [History Last Taken 09/06/22] losartan 25 mg tablet 25 mg PO DAILY blood pressure 07/04/22 [History Last Taken 09/06/22] omega-3 fatty acids-fish oil 684 mg-1,200 mg capsule,delayed release 2 cap PO DAILY supplement 07/04/22 [History Last Taken 09/06/22] amlodipine 10 mg tablet 10 mg PO DAILY blood pressure #90 tabs 07/27/22 [Rx Last Taken 09/06/22] levetiracetam 500 mg tablet 500 mg PO BID seizures #60 tabs 08/08/22 [Rx Last Taken 09/06/22] naproxen 500 mg tablet 500 mg PO BID PRN Pain 09/06/22 [History Last Taken Unknown] simethicone 80 mg chewable tablet (Gas Relief 80 (simethicone)) 80 mg PO DAILY PRN gas relief 09/06/22 [History Last Taken Unknown] folic acid 1 mg tablet 1 mg PO BREAKFAST #30 tabs 09/08/22 [Rx Last Taken Unknown] khtzzs-toylaqna-uqtfbue 12,000-38,000-60,000 unit capsule,delayed rel (Creon) 1 cap PO .TIDAC 30 days #90 caps 09/08/22 [Rx Last Taken Unknown] thiamine HCl (vitamin B1) 100 mg tablet (Vitamin B-1) 100 mg PO BREAKFAST #30 tabs 09/08/22 [Rx Last Taken Unknown] ursodiol 250 mg tablet 250 mg PO BID liver fibrosis #180 tabs 09/21/22 [Rx Last Taken Unknown] levocarnitine 330 mg tablet 330 mg PO BID #60 tabs 09/28/22 [Rx Last Taken Unknown] Allergy/AdvReac Type Severity Reaction Status Date / Time lisinopril Allergy Angioedema Verified 11/09/22 16:17 cyclobenzaprine AdvReac Severe Skin Verified 11/09/22 16:17 crawling Iodinated Contrast Media AdvReac Intermediate ITCHY FEET Verified 11/09/22 16:17 [iodine contrast] hydrocodone bitartrate AdvReac Itching Verified 11/09/22 16:17 [From Vicodin] hydromorphone [From Dilaudid] AdvReac Itching Verified 11/09/22 16:17 morphine AdvReac Itching Verified 11/09/22 16:17 tramadol AdvReac Itching Verified 11/09/22 16:17 Family History Mother Heart disease Sister Cerebral aneurysm Surgical History History of cholecystectomy (12/2013) History of left heart catheterization (10/31/11) Social History Smoking Status: Former smoker Tobacco: How many years used: 7 Electronic Cigarette Use: not used alcohol intake: former details: states a couple beers every now on then, does not have daily substance use type: does not use caffeine: No robbin/restoration: Taoist seatbelt use: always ROS ROS ED ROS Narrative Constitutional: No fever, no chills. HEENT: No sore throat. No neck pain. No loss of vision. No rhinorrhea. Cardiovascular: No chest pain. No palpitations. No pedal edema. Respiratory: No cough, no shortness of breath. Abdominal: Epigastric abdominal pain. Positive nausea. No vomiting. Genitourinary: No dysuria. No hematuria. Musculoskeletal: No myalgias. No arthralgias. Neurologic: No headaches. No dizziness. No lightheadedness. Skin: No rash. No change in color. Psychiatric: No depression. No anxiety. EXAM Physical Exam Narrative Exam Narrative: Afebrile. Vital signs noted. HEENT: Normocephalic. Atraumatic. PERRL, EOMI. Neck soft and supple. No point tenderness or step off. Cardiovascular: Regular rate and rhythm. No murmurs, rubs, or gallops appreciated. Respiratory: No tachypnea. Lungs clear to auscultation bilaterally. Gastrointestinal: Abdomen soft, mild epigastric tenderness with normoactive bowel sounds. No rebound or guarding. Neurological: Awake. Alert. Nonfocal, nonlateralizing. Skin: No rash. Normal color. No pallor. Musculoskeletal: No pedal edema. Full range of motion extremities. Const Vital Signs: 11/09/22 20:42 Temperature 97.8 F Temperature Source Temporal Pulse Rate 104 H Respiratory Rate 16 Blood Pressure 144/92 H Blood Pressure Mean 109 Pulse Ox 100 Oxygen Delivery Method Room Air MDM MDM MDM Narrative Medical decision making narrative: I reviewed the patient's prior record from today. It was reported by the attending physician that he has a slight white count of 12, and his blood sugar was elevated in the 300s but he was given IV fluids. He was going to give the patient Dilaudid and Benadryl to help with his pain, but that is when they noticed that the patient had eloped. Patient is well-known to the emergency department. I had a lengthy discussion with him and reviewed his lipase from today. It is only slightly elevated at 525, but lower than previous values. I do not feel that he requires observation or admission because he has not had any nausea or vomiting since he left. He states he wants help with pain control and will follow-up with Dr. Santamaria. Intramuscularly along with Benadryl 25 mg intramuscularly and discharged. I do feel he can be discharged safely home for his chronic pancreatitis. He is familiar how to treat this as an outpatient. Disposition is discharged home in stable condition. Discharge Plan Triage Chief Complaint: Abd Pain ED Provider: Alejandro Gandhi Dx/Rx/DC Orders Clinical Impression: Elevated lipase, Chronic pancreatitis, Abdominal pain, epigastric Instructions: ED Pancreatitis Prescriptions: No Action amitriptyline 25 mg tablet 25 mg PO QHS gabapentin 300 mg capsule 300 mg PO BID levetiracetam 500 mg tablet 500 mg PO BID Qty: 60 6RF levocarnitine 330 mg tablet 330 mg PO BID Qty: 60 5RF Rx Instructions: must administer with a meal/food nitroglycerin 0.4 MG tablet 0.4 mg sublingual Q5M PRN (Reason: Chest Pain) cholecalciferol (vitamin D3) 5,000 capsule 1 cap PO DAILY insulin glargine [Lantus U-100 Insulin] 100 UNIT/ML solution 10 unit SQ QHS latanoprost 0.005 % drops 1 drp EACH EYE QHS tamsulosin 0.4 mg Capsule 0.4 mg PO QHS pantoprazole 40 mg Tablet,Delayed Release (Dr/Ec) 40 mg PO DAILY pravastatin 40 mg Tablet 60 mg PO QHS magnesium oxide 400 mg (241.3 mg magnesium) tablet 400 mg PO BID metformin 500 MG tablet 500 mg PO BID Qty: 0 0RF Hold Instructions: Hold for 3 days aspirin 81 mg Tablet,Delayed Release (Dr/Ec) 81 mg PO DAILY losartan 25 mg tablet 25 mg PO DAILY fluticasone propionate [Flonase Allergy Relief] 50 mcg/actuation [place],Suspension 2 spray INTRANASAL DAILY escitalopram oxalate 10 mg tablet 10 mg PO DAILY loratadine 10 MG capsule 10 mg PO DAILY omega-3 fatty acids-fish oil 684-1,200 mg Capsule,Delayed Release(Dr/Ec) 2 cap PO DAILY naproxen 500 mg tablet 500 mg PO BID PRN (Reason: Pain) simethicone [Gas Relief 80 (simethicone)] 80 mg Tablet,Chewable 80 mg PO DAILY PRN (Reason: gas relief) thiamine HCl (vitamin B1) [Vitamin B-1] 100 mg Tablet 100 mg PO BREAKFAST Qty: 30 0RF folic acid 1 mg Tablet 1 mg PO BREAKFAST Qty: 30 0RF Creon 12,000-38,000 -60,000 unit capsule,delayed release(DR/EC) 1 cap PO .TIDAC 30 Days Qty: 90 2RF Rx Instructions: administer with meals and/or snacks hydrochlorothiazide 25 mg tablet 25 mg PO DAILY Qty: 30 11RF Hold Instructions: Hold for 3 days and start with 12.5 mg, half tablet daily. amlodipine 10 mg tablet 10 mg PO DAILY Qty: 90 3RF ursodiol 250 mg tablet 250 mg PO BID Qty: 180 1RF Primary Care Provider: Lobito Maldonado Referrals: Taras Santamaria DO [Med Staff - Active Staff] - As soon as possible Lobito Maldonado MD [Primary Care Provider] - Disposition Disposition: Home, Self Care Discharge Date/Time: 11/10/22 00:33
[2022-11-10] MEDS: DiphenhydrAMINE 50 MG/ML Syringe 25 MG IM (00:05)
[2022-11-10] MEDS: HYDROmorphone 1 MG/ML Syringe IM (00:07)
== END 2022-11-10 00:33 | disposition home or self-care (01) ==
PROVIDERS: Emergency Provider Emergency Medicine; PCP Internal Medicine; Visit Provider Emergency Medicine
DX: K86.1 Other chronic pancreatitis (principal); E11.65 Type 2 diabetes mellitus with hyperglycemia; R74.8 Abnormal levels of other serum enzymes; Z87.891 Personal history of nicotine dependence; I10 Essential (primary) hypertension; K21.9 Gastro-esophageal reflux disease without esophagitis
CPT/HCPCS: 96372; 99284

== ENCOUNTER 2022-11-28 21:37 | Inpatient (IN) | payer MEDICARE, MEDICAID, SELFPAY ==
[2022-11-28 21:43] VITALS: BP 134/91; PULSE 108; RESP 18; TEMP 36.1; BMI 26.2
[2022-11-28 21:44] VITALS: BP 134/91; PULSE 108; RESP 18; TEMP 36.1
--- NOTE | 2022-11-28 23:26 | EDS_ITS ---
HPI HPI - GI History of Present Illness Chief Complaint: Abd Pain Informant: patient Narrative Narrative: Patient presents with abdominal pain. He has a history of recurrent pancreatitis. He states he is taking his medicines. He is not drinking. He is trying to eat healthy with fruits and vegetables. He did have a eggroll cooked in the oven yesterday. After that he seems to have more abdominal pain. It is epigastric and does radiate a little bit toward the right. He is already had his gallbladder out. No other abdominal surgery. He is not having pain in the back at this point but he feels like it might be going there. He is starting to get a little bit nauseated but no vomiting. He has still been eating well since this. No fevers or chills. No urinary symptoms. No chest pain no trouble breathing. [facility] Medical History (Updated 11/29/22 @ 03:[address] Magno Mora MD) Alcohol abuse Anxiety and depression Cancer Constipation Diabetes Essential (primary) hypertension Family history of cerebral aneurysm Former tobacco use Gastric ulcer GERD (gastroesophageal reflux disease) GI bleed Glaucoma Hyperlipidemia Myocardial infarct Neck pain Pancreatitis Polyneuropathy PSA elevation PTSD (post-traumatic stress disorder) Seizure disorder Stroke/cerebrovascular accident TIA (transient ischemic attack) Vision loss of left eye Vision loss of right eye Home Medications nitroglycerin 0.4 mg sublingual tablet 0.4 mg sublingual Q5M PRN Chest Pain 07/15/13 [History Last Taken 08/22/15] amitriptyline 25 mg tablet 25 mg PO QHS depression 07/03/18 [History Last Taken 09/05/22] cholecalciferol (vitamin D3) 125 mcg (5,000 unit) capsule 1 cap PO DAILY supplement 11/09/18 [History Last Taken 09/06/22] hydrochlorothiazide 25 mg tablet 25 mg PO DAILY blood pressure/heart #30 tabs 06/05/20 [Rx Last Taken 09/06/22] gabapentin 300 mg capsule 300 mg PO BID nerve pain 10/06/20 [History Last Taken 09/05/22] insulin glargine 100 unit/mL subcutaneous solution (Lantus U-100 Insulin) 10 unit SQ QHS diabetes 12/30/20 [History Last Taken 09/04/22] latanoprost 0.005 % eye drops 1 drp EACH EYE QHS glaucoma 12/07/21 [History Last Taken 09/05/22] magnesium oxide 400 mg (241.3 mg magnesium) tablet 400 mg PO BID supplement 02/27/22 [History Last Taken 09/06/22] pantoprazole 40 mg tablet,delayed release 40 mg PO DAILY gerd 02/27/22 [History Last Taken 09/06/22] pravastatin 40 mg tablet 60 mg PO QHS cholesterol 02/27/22 [History Last Taken 09/05/22] tamsulosin 0.4 mg capsule 0.4 mg PO QHS prostate 02/27/22 [History Last Taken 09/05/22] metformin 500 mg tablet 500 mg PO BID diabetes #0 tabs 03/04/22 [Rx Last Taken 09/06/22] aspirin 81 mg tablet,delayed release 81 mg PO DAILY heart health 07/04/22 [History Last Taken 09/06/22] escitalopram oxalate 10 mg tablet 10 mg PO DAILY depression 07/04/22 [History Last Taken 09/06/22] fluticasone propionate 50 mcg/actuation nasal spray,suspension (Flonase Allergy Relief) 2 spray intranasal DAILY allergies 07/04/22 [History Last Taken 09/04/22] loratadine 10 mg capsule 10 mg PO DAILY allergies 07/04/22 [History Last Taken 09/06/22] losartan 25 mg tablet 25 mg PO DAILY blood pressure 07/04/22 [History Last Taken 09/06/22] omega-3 fatty acids-fish oil 684 mg-1,200 mg capsule,delayed release 2 cap PO DAILY supplement 07/04/22 [History Last Taken 09/06/22] amlodipine 10 mg tablet 10 mg PO DAILY blood pressure #90 tabs 07/27/22 [Rx Last Taken 09/06/22] levetiracetam 500 mg tablet 500 mg PO BID seizures #60 tabs 08/08/22 [Rx Last Taken 09/06/22] naproxen 500 mg tablet 500 mg PO BID PRN Pain 09/06/22 [History Last Taken Unknown] simethicone 80 mg chewable tablet (Gas Relief 80 (simethicone)) 80 mg PO DAILY PRN gas relief 09/06/22 [History Last Taken Unknown] folic acid 1 mg tablet 1 mg PO BREAKFAST #30 tabs 09/08/22 [Rx Last Taken Unknown] [id number] 12,000-38,000-60,000 unit capsule,delayed rel (Creon) 1 cap PO .TIDAC 30 days #90 caps 09/08/22 [Rx Last Taken Unknown] thiamine HCl (vitamin B1) 100 mg tablet (Vitamin B-1) 100 mg PO BREAKFAST #30 tabs 09/08/22 [Rx Last Taken Unknown] ursodiol 250 mg tablet 250 mg PO BID liver fibrosis #180 tabs 09/21/22 [Rx Last Taken Unknown] levocarnitine 330 mg tablet 330 mg PO BID #60 tabs 09/28/22 [Rx Last Taken Unknown] Allergy/AdvReac Type Severity Reaction Status Date / Time lisinopril Allergy Angioedema Verified 11/09/22 16:17 cyclobenzaprine AdvReac Severe Skin Verified 11/09/22 16:17 crawling Iodinated Contrast Media AdvReac Intermediate ITCHY FEET Verified 11/09/22 16:17 [iodine contrast] hydrocodone bitartrate AdvReac Itching Verified 11/09/22 16:17 [From Vicodin] hydromorphone [From Dilaudid] AdvReac Itching Verified 11/09/22 16:17 morphine AdvReac Itching Verified 11/09/22 16:17 tramadol AdvReac Itching Verified 11/09/22 16:17 Family History Mother Heart disease Sister Cerebral aneurysm Surgical History History of cholecystectomy (12/2013) History of left heart catheterization (10/31/11) Social History Smoking Status: Former smoker Tobacco: How many years used: 7 Electronic Cigarette Use: not used alcohol intake: former details: states a couple beers every now on then, does not have daily substance use type: does not use caffeine: No robbin/bahai: [employer] seatbelt use: always ROS ROS ED Constitutional Constitutional ED: Denies chills, fever(s), subjective or sweats ENT ENT ED: Denies rhinorrhea or sore throat Cardiovascular Cardiovascular: Denies chest pain, palpitations or racing heartbeat Respiratory/Chest Respiratory/Chest: Denies cough or dyspnea Gastrointestinal Gastrointestinal: Reports abdominal pain and nausea; Denies constipation, diarrhea, melena or vomiting Genitourinary Genitourinary ED: Denies dysuria or hematuria Musculoskeletal Musculoskeletal: Denies back pain Integumentary Denies rash Neurologic Neurologic: Denies headache(s) Hematologic/Lymphatic Hematologic/Lymphatic: Denies easy bleeding or easy bruising Allergic/Immunologic Allergic/Immunologic ED: Denies urticaria EXAM Physical Exam Narrative Exam Narrative: Patient awake and alert. He walked back to the room without difficulty. He is sitting on the bed. He looks reasonably comfortable. He is not toxic. HEENT moist mucous membranes still no sign of trauma Eyes: No icterus Neck shows free range of motion without pain Lungs are clear bilaterally all the way to the bases. Heart is regular. It does have a rate of about 100. I hear no murmur. Peripheral pulses are equal x4. Back shows no tenderness. Abdomen is soft normal bowel sounds it is not distended. He has some minimal epigastric tenderness. I am really not getting any right upper quadrant tenderness even though he states the pain can goes a little bit that direction. No tenderness in the lower abdomen. No hernia when I have him set up. shows no CVA or suprapubic tenderness Neurologically he is awake alert and appropriate. Skin shows no diaphoresis or pallor. No rashes. Const Vital Signs: 11/28/22 21:43 11/28/22 21:44 Temperature 96.9 F L 96.9 F L Temperature Source Temporal Temporal Pulse Rate 108 H 108 H Respiratory Rate 18 18 Blood Pressure 134/91 H 134/91 H Blood Pressure Mean 105 105 MDM MDM MDM Narrative Medical decision making narrative: Patient's labs show slight elevation of his white count at 15.9. Platelets hemoglobin are normal. Electrolytes show no marked abnormalities. No sign of significant dehydration. He does have a slight rise of his glucose at 223. Liver function test overall look good. However, his lipase is quite high today. Alcohol level is negative. Patient's recheck. His nausea was better but is now coming back. His pain is coming back. This patient does have chronic recurrent pancreatitis. Normally were able to get him better and sent him home. But I think with his symptoms, and elevated lipase we may need to keep him in for hydration, n.p.o. and pain control. I did discuss the case with the hospitalist. Lab Data Labs: Laboratory Results - last 24 hr 11/28/22 11/28/22 11/29/22 23:55 23:55 01:15 WBC 15.9 H RBC 4.64 Hgb 14.9 Hct 42.1 MCV 90.7 MCH 32.1 H MCHC 35.4 RDW Std Deviation 39.1 RDW Coeff of Armin 11.8 Plt Count 225 MPV 9.4 Immature Gran % (Auto) 0.400 Neut % (Auto) 78.1 H Lymph % (Auto) 14.0 L [place] % (Auto) 6.5 Eos % (Auto) 0.6 Baso % (Auto) 0.4 Absolute Neuts (auto) 12.4 H Absolute Lymphs (auto) 2.22 Nucleated RBC % 0.1 Sodium 134 L Potassium 3.5 Chloride 100 Carbon Dioxide 26.0 Anion Gap 8 BUN 15 Creatinine 1.17 Estim Creat Clear Calc 71.93 Est GFR (MDRD) Af Amer 82 Est GFR (MDRD) Non-Af 68 BUN/Creatinine Ratio 12.8 Glucose 223 H Calcium 9.9 Total Bilirubin 0.80 AST 13 L ALT 20 Alkaline Phosphatase 71 Total Protein 8.3 H Albumin 4.3 Globulin 4.0 Albumin/Globulin Ratio 1.1 Lipase 2513 H Ethyl Alcohol < 3.0 Management Discussion w/another healthcare provider: Hospitalist Discharge Plan Dx/Rx/DC Orders Clinical Impression: Pancreatitis, Nausea, Abdominal pain Disposition Disposition: Acute Care [facility]
[2022-11-28] MEDS: 0.9% Normal Saline 1,000 ML 1000 ML IV (23:51)
[2022-11-28] MEDS: HYDROmorphone 0.5 MG/0.5 ML SYRINGE IV (23:52)
[2022-11-28] MEDS: DiphenhydrAMINE 50 MG/ML Syringe 25 MG IV (23:52)
[2022-11-28] MEDS: Ondansetron 4 MG/2 ML Vial IV (23:52)
[2022-11-29 00:04] LABS: Absolute Lymphocyte Count 2.22 X10^3/uL (0.83-4.51); Absolute Neutrophil Count 12.4 X10^3/uL (2.0-7.7); Basophil# 0.06 X10^3/uL; Basophil% 0.4 % (0-1); Eosinophil# 0.09 X10^3/uL; Eosinophils% 0.6 % (0-5); Hematocrit 42.1 % (40-54); Hemoglobin 14.9 g/dL (13.0-16.5); Lymphocyte # 2.22 X10^3/ul (0.83-4.51); Mean Corp Hgb Conc 35.4 g/dL (32-36); Mean Corpuscular Hgb 32.1 pg (27.0-32.0); Mean Corpuscular Volume 90.7 fL (80-94); Mean Platelet Vol. 9.4 fl (6.2-12.0); Monocyte# 1.03 X10^3/uL; Monocyte% 6.5 % (0-10); NRBC Flagged by Analyzer 0.1 % (0-5); Neutrophil % 78.1 % (47-70); Platelet Count 225 K/mm3 (150-450); RBC Distribution Width CV 11.8 % (11.6-14.6); RBC Distribution Width SD 39.1 fl (35.1-43.9); Red Blood Count 4.64 M/mm3 (4.6-6.2); White Blood Count 15.9 K/mm3 (4.4-11.0)
[2022-11-29 00:41] LABS: ALB/GLOB Ratio 1.1 RATIO (0.9-2.4); AST(SGOT) 13 U/L (15-37); Alanine Aminotransfer ALT/SGPT 20 U/L (16-61); Albumin, Serum 4.3 g/dL (3.2-5.0); Alkaline Phosphatase 71 U/L (45-117); Anion Gap 8 (5-15); BUN 15 mg/dL (7-18); BUN/Creat Ratio 12.8 RATIO (10-20); Calcium,Total 9.9 mg/dL (8.5-10.1); Chloride 100 mmol/L (98-107); Creatinine, Serum 1.17 mg/dL (0.70-1.30); EST Glomerular Filtration Rate 68 mL/min (>60); Est Glom Filt Rate - Afr Amer 82 mL/min (>60); Estimated Creatinine Clearance 71.93 ml/min; Glucose 223 mg/dL (74-106); Lipase 2513 U/L (73-393); Potassium 3.5 mmol/L (3.5-5.1); Protein, Total 8.3 g/dL (6.4-8.2); Sodium Level 134 mmol/L (136-145)
[2022-11-29 01:36] LABS: Alcohol, Blood (Medical)-Serum < 3.0 mg/dL
--- NOTE | 2022-11-29 02:39 | PCM.HP.STD ---
HPI - General General Date of Admission: 11/29/22 Date of Service: 11/29/22 Chief Complaint: Recurrent epigastric pain, nausea without emesis. HPI Narrative The patient is a 57 y/o M w/ PMHx: Anxiety and Depression, HTN, HLD, Diabetes mellitus type II w/ chronic neuropathy, Chronic pain syndrome, Former tobacco use, GERD w/ Hx GI bleed w/ Gastric ulcer, Hx TIA/CVA, Seizure disorder, BPH, EtOH abuse with history of liver fibrosis reporting sober x 2 months, Hx recurrent Acute Pancreatitis most recently treated and evaluated w/ discharge 09/08/22 with history of cholecystectomy previously, not markedly elevated triglyceride level and denies persistent alcohol abuse currently who re-presents to the [facility] ED on 11/29/22 with history of recurrent epigastric abdominal pain reporting that he is not been drinking and attempting to have a healthier intake with the evening prior reported his dinner is an egg roll with more abdominal discomfort following with some mild radiation toward the right with nausea without emesis with still ongoing ability to eat and no fevers or chills but given persistent ongoing pain prompted ED evaluation. He notes this pain is similar to his recent admission for acute pancreatitis, sharp severe 9/10 pain prior to arrival and now following pain medications /10 in severity with continued improvement. Work-up in the ED included T96.9, heart rate 108, BP 134/91, respiratory rate 18, CBC with WBC 15.9, hemoglobin 14.9, platelet 225 with left shift, CMP with sodium 134, glucose 223, hepatic profile with T. bili 0.8, AST/ALT 13/20, alk phos 71 otherwise not marked appearing, lipase 2513, ethyl alcohol less than 3. In the ED patient ministered Phenergan 12.5 mg IM IM x1, Zofran 4 mg IV x1, Dilaudid 0.5 mg IV x2, Benadryl 25 mg IV x1 as well as 1 L normal saline bolus. [facility] Medical History (Updated 11/29/22 @ 03:[address] Magno Mora MD) Alcohol abuse Anxiety and depression Cancer Constipation Diabetes Essential (primary) hypertension Family history of cerebral aneurysm Former tobacco use Gastric ulcer GERD (gastroesophageal reflux disease) GI bleed Glaucoma Hyperlipidemia Myocardial infarct Neck pain Pancreatitis Polyneuropathy PSA elevation PTSD (post-traumatic stress disorder) Seizure disorder Stroke/cerebrovascular accident TIA (transient ischemic attack) Vision loss of left eye Vision loss of right eye Home Medications nitroglycerin 0.4 mg sublingual tablet 0.4 mg sublingual Q5M PRN Chest Pain 07/15/13 [History Last Taken 08/22/15] amitriptyline 25 mg tablet 25 mg PO QHS depression 07/03/18 [History Last Taken 09/05/22] cholecalciferol (vitamin D3) 125 mcg (5,000 unit) capsule 1 cap PO DAILY supplement 11/09/18 [History Last Taken 09/06/22] hydrochlorothiazide 25 mg tablet 25 mg PO DAILY blood pressure/heart #30 tabs 06/05/20 [Rx Last Taken 09/06/22] gabapentin 300 mg capsule 300 mg PO BID nerve pain 10/06/20 [History Last Taken 09/05/22] insulin glargine 100 unit/mL subcutaneous solution (Lantus U-100 Insulin) 10 unit SQ QHS diabetes 12/30/20 [History Last Taken 09/04/22] latanoprost 0.005 % eye drops 1 drp EACH EYE QHS glaucoma 12/07/21 [History Last Taken 09/05/22] magnesium oxide 400 mg (241.3 mg magnesium) tablet 400 mg PO BID supplement 02/27/22 [History Last Taken 09/06/22] pantoprazole 40 mg tablet,delayed release 40 mg PO DAILY gerd 02/27/22 [History Last Taken 09/06/22] pravastatin 40 mg tablet 60 mg PO QHS cholesterol 02/27/22 [History Last Taken 09/05/22] tamsulosin 0.4 mg capsule 0.4 mg PO QHS prostate 02/27/22 [History Last Taken 09/05/22] metformin 500 mg tablet 500 mg PO BID diabetes #0 tabs 03/04/22 [Rx Last Taken 09/06/22] aspirin 81 mg tablet,delayed release 81 mg PO DAILY heart health 07/04/22 [History Last Taken 09/06/22] escitalopram oxalate 10 mg tablet 10 mg PO DAILY depression 07/04/22 [History Last Taken 09/06/22] fluticasone propionate 50 mcg/actuation nasal spray,suspension (Flonase Allergy Relief) 2 spray intranasal DAILY allergies 07/04/22 [History Last Taken 09/04/22] loratadine 10 mg capsule 10 mg PO DAILY allergies 07/04/22 [History Last Taken 09/06/22] losartan 25 mg tablet 25 mg PO DAILY blood pressure 07/04/22 [History Last Taken 09/06/22] omega-3 fatty acids-fish oil 684 mg-1,200 mg capsule,delayed release 2 cap PO DAILY supplement 07/04/22 [History Last Taken 09/06/22] amlodipine 10 mg tablet 10 mg PO DAILY blood pressure #90 tabs 07/27/22 [Rx Last Taken 09/06/22] levetiracetam 500 mg tablet 500 mg PO BID seizures #60 tabs 08/08/22 [Rx Last Taken 09/06/22] naproxen 500 mg tablet 500 mg PO BID PRN Pain 09/06/22 [History Last Taken Unknown] simethicone 80 mg chewable tablet (Gas Relief 80 (simethicone)) 80 mg PO DAILY PRN gas relief 09/06/22 [History Last Taken Unknown] folic acid 1 mg tablet 1 mg PO BREAKFAST #30 tabs 09/08/22 [Rx Last Taken Unknown] [id number] 12,000-38,000-60,000 unit capsule,delayed rel (Creon) 1 cap PO .TIDAC 30 days #90 caps 09/08/22 [Rx Last Taken Unknown] thiamine HCl (vitamin B1) 100 mg tablet (Vitamin B-1) 100 mg PO BREAKFAST #30 tabs 09/08/22 [Rx Last Taken Unknown] ursodiol 250 mg tablet 250 mg PO BID liver fibrosis #180 tabs 09/21/22 [Rx Last Taken Unknown] levocarnitine 330 mg tablet 330 mg PO BID #60 tabs 09/28/22 [Rx Last Taken Unknown] Allergy/AdvReac Type Severity Reaction Status Date / Time lisinopril Allergy Angioedema Verified 11/09/22 16:17 cyclobenzaprine AdvReac Severe Skin Verified 11/09/22 16:17 crawling Iodinated Contrast Media AdvReac Intermediate ITCHY FEET Verified 11/09/22 16:17 [iodine contrast] hydrocodone bitartrate AdvReac Itching Verified 11/09/22 16:17 [From Vicodin] hydromorphone [From Dilaudid] AdvReac Itching Verified 11/09/22 16:17 morphine AdvReac Itching Verified 11/09/22 16:17 tramadol AdvReac Itching Verified 11/09/22 16:17 Family History (Updated 11/29/22 @ 03:[address] Mayelin Pedraza MD) Mother Heart disease Sister Cerebral aneurysm Father Diabetes Kidney disease Anxiety and depression Surgical History (Updated 11/29/22 @ 03:[address] Mayelin Pedraza MD) History of cholecystectomy (12/2013) History of left heart catheterization (10/31/11) Social History (Updated 11/29/22 @ 03:[address] Mayelin Pedraza MD) household members: none Smoking Status: Former smoker Tobacco: How many years used: 7 Electronic Cigarette Use: not used alcohol intake: former details: 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 substance use type: does not use caffeine: No robbin/moravian: Je[employer] seatbelt use: always ROS ROS Narrative Admission Review of Systems: CONSTITUTIONAL: No weight loss, fever, chills, +weakness or fatigue. HEENT: + History of bilateral vision deficits. Eyes: No double vision or yellow sclerae. Ears, Nose, Throat: No hearing loss, sneezing, congestion, runny nose or sore throat. SKIN: + Pruritus following recent pain regimen which is a chronic issue. CARDIOVASCULAR: No chest pain, chest pressure or chest discomfort, palpitations, edema, orthopnea, syncopal events. RESPIRATORY: No shortness of breath, cough or sputum, wheezing, hemoptysis. GASTROINTESTINAL: + anorexia, nausea without vomiting, abdominal pain, No diarrhea, melena, BRBPR. GENITOURINARY: No dysuria, frequency, urgency or retention. NEUROLOGICAL: No headache, dizziness, syncope, paralysis, ataxia, numbness or tingling in the extremities, focal weakness, change in bowel or bladder control, seizure. MUSCULOSKELETAL: + muscle, back pain, joint pain or stiffness. HEMATOLOGIC: + easy bleeding or bruising. LYMPHATICS: No enlarged nodes. No history of splenectomy. PSYCHIATRIC: + history of depression or anxiety. ENDOCRINOLOGIC: No reports of sweating, cold or heat intolerance. No polyuria or polydipsia. ALLERGIES: + history of angioedema, rhinitis. Vital Signs Vital Signs Vital Signs: 11/28/22 21:43 11/28/22 21:44 Temperature 96.9 F L 96.9 F L Temperature Source Temporal Temporal Pulse Rate 108 H 108 H Respiratory Rate 18 18 Blood Pressure 134/91 H 134/91 H Blood Pressure Mean 105 105 Weight Weight: 182 lb 5.156 oz Body Mass Index (BMI) 26.2 Physical Exam Narrative Physical Examination: General: Awake, alert, oriented x 3 and cooperative, seated upright in the ED bed, itching, notes pain improving, currently /10. Skin: Normal color, normal turgor, no icterus, no cyanosis. HEENT: AT/NC, EOMI, PERRLA, dry MM, no carotid bruits or JVD noted. Lungs: Mild diminished, greater bases, appropriate effort, no rales, ronchi or wheezing. Heart: Regular rate and rhythm; no gallop, rub audible. Abdomen: Soft, notably improved, no marked discomfort with palpation of the epigastric region or the right upper quadrant, no guarding or rebound, no obvious distention, mildly hyperactive bowel sounds, + HM. Extremities: No cyanosis, clubbing, or edema. Neurological: Patient awake, alert, oriented as noted, cognitive function intact; pupils equally reactive to light and accommodation, cranial nerves II-XII grossly normal, moving all 4 extremities, no focal deficits, strength improving, mildly to moderately global decrease. Psychiatric: Affect appears mildly uncomfortable but improving, no acute evidence of depressive or anxiety feelings but does have underlying history. Results Lab / Micro Data Result Diagrams: 11/28/22 23:55 11/28/22 23:55 Labs: Laboratory Results - last 24 hr 11/28/22 23:55: WBC 15.9 H, RBC 4.64, Hgb 14.9, Hct 42.1, MCV 90.7, MCH 32.1 H, MCHC 35.4, RDW Std Deviation 39.1, RDW Coeff of Armin 11.8, Plt Count 225, MPV 9.4, Immature Gran % (Auto) 0.400, Neut % (Auto) 78.1 H, Lymph % (Auto) 14.0 L, [place] % (Auto) 6.5, Eos % (Auto) 0.6, Baso % (Auto) 0.4, Absolute Neuts (auto) 12.4 H, Absolute Lymphs (auto) 2.22, Nucleated RBC % 0.1 11/28/22 23:55: Sodium 134 L, Potassium 3.5, Chloride 100, Carbon Dioxide 26.0, Anion Gap 8, BUN 15, Creatinine 1.17, Estim Creat Clear Calc 71.93, Est GFR (MDRD) Af Amer 82, Est GFR (MDRD) Non-Af 68, BUN/Creatinine Ratio 12.8, Glucose 223 H, Calcium 9.9, Total Bilirubin 0.80, AST 13 L, ALT 20, Alkaline Phosphatase 71, Total Protein 8.3 H, Albumin 4.3, Globulin 4.0, Albumin/Globulin Ratio 1.1, Lipase 2513 H 11/29/22 01:15: Ethyl Alcohol < 3.0 Assessment & Plan Assessment/Plan (1) Pancreatitis: PLAN: Plan The patient is a 57 y/o M w/ PMHx: Anxiety and Depression, HTN, HLD, Diabetes mellitus type II w/ chronic neuropathy, Chronic pain syndrome, Former tobacco use, GERD w/ Hx GI bleed w/ Gastric ulcer, Hx TIA/CVA, Seizure disorder, BPH, EtOH abuse with history of liver fibrosis, Hx recurrent Acute Pancreatitis most recently treated and evaluated w/ discharge 09/08/22 with history of cholecystectomy previously, not markedly elevated triglyceride level and denies persistent alcohol abuse currently who re-presents to the [facility] ED on 11/29/22 with history of recurrent epigastric abdominal pain reporting that he is not been drinking and attempting to have a healthier intake with the evening prior reported his dinner is an egg roll with more abdominal discomfort following with some mild radiation toward the right with nausea without emesis with still ongoing ability to eat and no fevers or chills but given persistent ongoing pain prompted ED evaluation. He notes this pain is similar to his recent admission for acute pancreatitis. #1. Acute pancreatitis w/ abdominal pain, nausea without emesis, recurrent: Will admit to medical surgical floor, will maintain on IVFs, NPO, PPI, IV/po pain control, trend lipase, CMP, ethyl alcohol level unremarkable in the ED, FLP recently performed therefore will defer, given history of gastric ulcer previously will request GI involvement to assure no recurrent ulcer issues as this certainly could contribute to recurrent pancreatitis but again patient does have a strong alcohol abuse history although currently EtOH level negative. #2. History of alcohol abuse reportedly sober x 2 months: Patient reporting sober x 2 months, given recurrent pancreatitis strongly encourage continued complete sobriety, EtOH level negative upon presentation, will continue thiamine, folic acid, case management consulted for substance abuse to continue to encourage sobriety and offer resources. #3. Hypertension: Continue home regimen including amlodipine, losartan, PRN hydralazine. Given presentation temporarily holding hydrochlorothiazide. #4. Diabetes mellitus type II with chronic neuropathy: Hold oral home regimen, continue home insulin regimen, n.p.o. status, every 6 hours accu checks w/ ISS, continue patient on gabapentin regimen. #5. History TIA/CVA: We will continue aspirin pending #1 assessment as noted, statin, hypertensive regimen as noted, diabetic regimen with alterations as noted. #6. History of liver fibrosis: History of alcohol abuse, reportedly decreasing his amount as noted above, we will continue patient home chronic ursodiol regimen. #7. Anxiety and depression: We will continue patient home amitriptyline as well as escitalopram regimen. #8. Hyperlipidemia: We will continue patient home statin therapy. #9. BPH: We will continue patient on Flomax regimen. #10. Seizure disorder: We will continue patient home Keppra regimen. #11. GERD with history GI bleed, gastric ulcer: We will maintain on IV PPI given presentation. #12. Former tobacco use: Encourage continued tobacco cessation. #13. DVT prophylaxis: Given presentation as noted #1 we will defer chemoprophylaxis, SCDs. #14. CODE status: Patient does not have healthcare power of managing attorney nor living will in place but if he did need someone to make medical decisions for him if he could not it would be his sister. Full Code status. Admission Evaluation Time spent evaluating chart, patient history, patient evaluation, care planning and discussion with specialists: 60 minutes. Charges/Coding Visit Charges Inpatient E&M: 75195 Init Hosp L2
[2022-11-29] MEDS: HYDROmorphone 0.5 MG/0.5 ML SYRINGE IV ×3 (02:52→15:17)
[2022-11-29] MEDS: proMETHazine 25 MG/ML Syringe 12.5 MG IM (02:53)
[2022-11-29] MEDS: DiphenhydrAMINE 50 MG/ML Syringe 25 MG IV ×2 (03:15→06:25)
[2022-11-29 03:17] LABS: Magnesium 1.6 mg/dL (1.6-2.6); Phosphorus 3.3 mg/dL (2.5-4.9)
[2022-11-29 03:19] VITALS: BP 148/96; PULSE 100; RESP 17; TEMP 36.3; O2SAT 96
[2022-11-29 04:07] VITALS: BMI 26.1
[2022-11-29 04:10] VITALS: BP 152/91; PULSE 98; RESP 18; TEMP 36.6; O2SAT 96
[2022-11-29] MEDS: oxyCODONE 5 MG Tablet PO ×3 (04:24→20:00)
[2022-11-29] MEDS: 0.9% Normal Saline 1,000 ML 150 ML IV ×3 (04:25→16:56)
[2022-11-29] MEDS: Acetaminophen 325 MG Tablet 650 MG PO (04:25)
[2022-11-29 04:36] LABS: Bedside Glucose 213 mg/dL (74-106)
[2022-11-29 04:42] VITALS: BMI 26.0
[2022-11-29] MEDS: Insulin Lispro 100 UNIT/ML INSULN.PEN SC ×4 (04:47→23:33)
[2022-11-29] MEDS: Ondansetron 4 MG/2 ML Vial IV (06:25)
[2022-11-29 06:56] LABS: Absolute Lymphocyte Count 2.07 X10^3/uL (0.83-4.51); Absolute Neutrophil Count 9.6 X10^3/uL (2.0-7.7); Basophil# 0.04 X10^3/uL; Basophil% 0.3 % (0-1); Eosinophil# 0.07 X10^3/uL; Eosinophils% 0.5 % (0-5); Hematocrit 38.5 % (40-54); Hemoglobin 13.3 g/dL (13.0-16.5); Lymphocyte # 2.07 X10^3/ul (0.83-4.51); Lymphocyte % 16.2 % (19-41); Mean Corp Hgb Conc 34.5 g/dL (32-36); Mean Corpuscular Hgb 31.8 pg (27.0-32.0); Mean Corpuscular Volume 92.1 fL (80-94); Mean Platelet Vol. 9.6 fl (6.2-12.0); Monocyte# 0.94 X10^3/uL; Monocyte% 7.3 % (0-10); NRBC Flagged by Analyzer 0 % (0-5); Neutrophil # 9.62 X10^3/uL (2.7-7.7); Neutrophil % 75.2 % (47-70); Platelet Count 197 K/mm3 (150-450); RBC Distribution Width CV 11.9 % (11.6-14.6); RBC Distribution Width SD 40.2 fl (35.1-43.9); Red Blood Count 4.18 M/mm3 (4.6-6.2); White Blood Count 12.8 K/mm3 (4.4-11.0)
[2022-11-29 07:35] LABS: ALB/GLOB Ratio 1.1 RATIO (0.9-2.4); AST(SGOT) 19 U/L (15-37); Alanine Aminotransfer ALT/SGPT 22 U/L (16-61); Albumin, Serum 3.8 g/dL (3.2-5.0); Alkaline Phosphatase 68 U/L (45-117); Anion Gap 7 (5-15); BUN 13 mg/dL (7-18); BUN/Creat Ratio 13.1 RATIO (10-20); Chloride 105 mmol/L (98-107); Creatinine, Serum 0.99 mg/dL (0.70-1.30); EST Glomerular Filtration Rate 83 mL/min (>60); Est Glom Filt Rate - Afr Amer 100 mL/min (>60); Globulin 3.6 g/dL (2.2-4.2); Glucose 197 mg/dL (74-106); Lipase 2333 U/L (73-393); Potassium 3.6 mmol/L (3.5-5.1); Protein, Total 7.4 g/dL (6.4-8.2); Sodium Level 137 mmol/L (136-145)
[2022-11-29] MEDS: Gabapentin 300 MG Capsule PO ×2 (07:42→16:55)
[2022-11-29] MEDS: Folic Acid 1 MG Tablet PO (07:42)
[2022-11-29] MEDS: Creon 12,000 unit DR CapSULE 1 CAP PO ×3 (07:42→16:54)
[2022-11-29] MEDS: Losartan Potassium 25 MG Tablet PO (07:42)
[2022-11-29] MEDS: Escitalopram Oxalate 10 MG Tablet PO (07:42)
[2022-11-29] MEDS: Loratadine 10 MG Tablet PO (07:42)
[2022-11-29] MEDS: Ursodiol 250 MG Tablet PO ×2 (07:42→21:44)
[2022-11-29] MEDS: Thiamine Hydrochloride 100 MG Tablet PO (07:43)
[2022-11-29] MEDS: Fluticasone 0.05% 1 SPRAY NASAL.SRY 2 SPRAY NASAL (07:43)
[2022-11-29] MEDS: Aspirin E.C. 81 MG Tablet PO (07:43)
[2022-11-29] MEDS: levOCARNitine 330 MG TABLET PO ×2 (07:43→16:54)
[2022-11-29] MEDS: levETIRAcetam 500 MG Tablet PO ×2 (07:44→21:44)
[2022-11-29] MEDS: amLODIPine 10 MG Tablet PO (07:44)
[2022-11-29 08:33] VITALS: BP 147/95; PULSE 90; RESP 16; TEMP 36.6; O2SAT 97
--- NOTE | 2022-11-29 10:43 | CASEMGMT ---
Social Work SW received Substance abuse consult for pt. SW in to pt room to provide resources. Pt was agreeable to discussing and open to receiving resources for addiction treatment and counseling from [facility]. SW inquired about pt support system and coping skills. Pt reports a friend, ex lula, who is there for support and always answers the phone when pt calls. SW offered support and praise for accomplishment of pt sobriety for 2 months. Pt voiced appreciation. Pt stated [facility] is down the road from my house and pt may be open to connecting with the agency at some point in the future. Franny Landa, BENY
--- NOTE | 2022-11-29 11:36 | CASEMGMT ---
UZMA BAKER Assessment: Face to Face with pt for initial transition planning/care coordination assessment. RN SAMUEL introduced self and role at [facility], pt voices understanding and consents to assessment. Pt is A/O x4 and answers all questions appropriately at this time. Pt sitting up in bed in no distress. Care providers, pharmacy, and demographics verified/updated. Admitting Dx: acute recurrent pancreatitis PCP:Joel Specialists:Friend, GI; Lex, neuro Preferred Pharmacy: [facility] Insurance: My Care [facility], [facility] Prescription Benefit: yes LNOK: Lashay Ochoa, sister Living Arrangements: Pt lives alone in a single story apt with 5 steps to enter with a rail. Pt reports he is I in ADL's and denies concerns at home. Transportation: Pt uses provide a ride or a bus for transportation. Pt reports he will need transportation home from the [facility] van at [place]. DME/HHC/SNF: Pt has a BGM with sufficient supplies, pox and medic alert. Pt states no concerns with going home at time of dc. States his [facility] nurse just visited. Pt denies any needs for homecare. Pt states no further concerns/needs. CM to follow. Advised pt to ask CM if any further question/concerns/needs arise, voices understanding. Pt Goal: Home Plan: Home, transportation needed home.
[2022-11-29 11:38] VITALS: BP 145/92; PULSE 89; RESP 16; TEMP 36.7; O2SAT 98
[2022-11-29 12:01] LABS: Bedside Glucose 178 mg/dL (74-106)
--- NOTE | 2022-11-29 12:58 | PN_ITS ---
Subjective Subjective Patient seen and examined. He still complained of epigastric pain. He denied ANY fever, chills, nausea or diarrhea. Review of systems is otherwise negative. He has remained hemodynamically stable. Objective Data Objective Data Vital Signs: Vital Signs Temp Pulse Resp BP Pulse Ox O2 Del Method 98.1 F 89 16 145/92 H 98 Room Air 11/29/22 11:38 11/29/22 11:38 11/29/22 11:38 11/29/22 11:38 11/29/22 11:38 11/29/22 11:38 Oxygen Delivery Method Room Air Weight: 181 lb 14.102 oz Body Mass Index (BMI) 26.0 Intake & Output: Intake and Output for Last 24 Hours 11/27/22 11/28/22 11/29/22 23:59 23:59 23:59 Intake Total 2109 Balance 2109 Lab / Micro Data Result Diagrams: 11/29/22 06:20 11/29/22 06:20 Labs: Laboratory Results - last 24 hr 11/28/22 23:55: WBC 15.9 H, RBC 4.64, Hgb 14.9, Hct 42.1, MCV 90.7, MCH 32.1 H, MCHC 35.4, RDW Std Deviation 39.1, RDW Coeff of Armin 11.8, Plt Count 225, MPV 9.4, Immature Gran % (Auto) 0.400, Neut % (Auto) 78.1 H, Lymph % (Auto) 14.0 L, [place] % (Auto) 6.5, Eos % (Auto) 0.6, Baso % (Auto) 0.4, Absolute Neuts (auto) 12.4 H, Absolute Lymphs (auto) 2.22, Nucleated RBC % 0.1 11/28/22 23:55: Sodium 134 L, Potassium 3.5, Chloride 100, Carbon Dioxide 26.0, Anion Gap 8, BUN 15, Creatinine 1.17, Estim Creat Clear Calc 71.93, Est GFR (MDRD) Af Amer 82, Est GFR (MDRD) Non-Af 68, BUN/Creatinine Ratio 12.8, Glucose 223 H, Calcium 9.9, Total Bilirubin 0.80, AST 13 L, ALT 20, Alkaline Phosphatase 71, Total Protein 8.3 H, Albumin 4.3, Globulin 4.0, Albumin/Globulin Ratio 1.1, Lipase 2513 H 11/28/22 23:55: Phosphorus 3.3, Magnesium 1.6 11/29/22 01:15: Ethyl Alcohol < 3.0 11/29/22 04:16: POC Glucose 213 H 11/29/22 06:20: WBC 12.8 H, RBC 4.18 L, Hgb 13.3, Hct 38.5 L, MCV 92.1, MCH 31.8, MCHC 34.5, RDW Std Deviation 40.2, RDW Coeff of Armin 11.9, Plt Count 197, MPV 9.6, Immature Gran % (Auto) 0.500, Neut % (Auto) 75.2 H, Lymph % (Auto) 16.2 L, [place] % (Auto) 7.3, Eos % (Auto) 0.5, Baso % (Auto) 0.3, Absolute Neuts (auto) 9.6 H, Absolute Lymphs (auto) 2.07, Nucleated RBC % 0 11/29/22 06:20: Sodium 137, Potassium 3.6, Chloride 105, Carbon Dioxide 25.0, Anion Gap 7, BUN 13, Creatinine 0.99, Estim Creat Clear Calc 85.00, Est GFR (MDRD) Af Amer 100, Est GFR (MDRD) Non-Af 83, BUN/Creatinine Ratio 13.1, Glucose 197 H, Calcium 9.0, Total Bilirubin 0.70, AST 19, ALT 22, Alkaline Phosphatase 68, Total Protein 7.4, Albumin 3.8, Globulin 3.6, Albumin/Globulin Ratio 1.1, Lipase 2333 H 11/29/22 11:02: POC Glucose 178 H Physical Exam Const oriented x3 and no apparent distress General Appearance: cooperative HEENT normocephalic, head/scalp atraumatic and moist oral mucous membranes Eyes PERRL and EOMs intact bilaterally Neck no lymphadenopathy and supple General: trachea midline Lymph Lymphatic: no lymphadenopathy noted Resp normal respiratory effort, normal air movement and clear to auscultation bilaterally Cardio regular rate, regular rhythm, S1 normal heart sound, S2 normal heart sound and no murmurs GI normal to inspection, nondistended, normoactive bowel sounds GI Narrative: mild epigastric tenderness, no guarding or rebound tenderness. Extremity normal capillary refill, no clubbing, cyanosis or edema and no calf tenderness Skin General Skin Exam: no breakdown Neuro CN's II-XII intact bilaterally, no focal motor deficits and no sensory deficits noted Motor Exam: strength 5/5 throughout Assessment & Plan Assessment/Plan (1) Abdominal pain: (2) Nausea: (3) Acute pancreatitis: PLAN: Plan #Acute on chronic pancreatitis * still complains of abdominal pain * he denies drinking alcohol. cause of pancreatitis is not clear * lipase today is 2333 * continue keeping NPO * hydrate aggressively with IVF * IV pain medication- IV dilaudid * on Creon. * #Type 2 diabetes mellitus: hold lantus. ISS. Accuchecks ACHS #History of stroke: On aspirin and statin #History of seizures: On Keppra #Hypertension: On amlodipine and losartan #BPH: on flomax #History of liver fibrosis: on ursodiol #Depression and anxiety: on amitryptiline and escitalopram DVT prophylaxis: lovenox Charges/Coding Visit Charges Inpatient E&M: 19659 Subs Hosp L3
[2022-11-29] MEDS: MethylPREDNISolone 125 MG/2 ML Vial 60 MG IV (15:13)
[2022-11-29 15:43] VITALS: BP 146/92; PULSE 98; RESP 16; TEMP 36.5; O2SAT 97
[2022-11-29 16:00] LABS: Bedside Glucose 220 mg/dL (74-106)
--- NOTE | 2022-11-29 17:24 | CON.PCM.GI_ITS ---
HPI Consult Data Date of Consult: 11/29/22 HPI Narrative Reason for Consultation: Pancreatitis HPI Narrative: BRANDON WELLER, is a 57 M who presents with epigastric pain.? He states it started today. He has a history of recurrent acute pancreatitis.? He states he is taking his medicines.? He is not drinking.? He is trying to eat healthy with fruits and vegetables.? He did have a eggroll cooked in the oven yesterday.? After that he seems to have more abdominal pain.? It is epigastric and does radiate a little bit toward the right.? He is already had his gallbladder out.? No other abdominal surgery.? He is not having pain in the back at this point but he feels like it might be going there.? He is starting to get a little bit nauseated but no vomiting.? He has still been eating well since this.? No fevers or chills.? No urinary symptoms.? No chest pain no trouble breathing.? .? Patient expressed he has 2 episodes of nausea and vomiting.? No constipation or diarrhea.? No urinary symptoms.? No fevers. Patient has history of chronic pancreatitis vs acute recurrent pancreatitis with previous history of alcohol dependence who had remained sober for couple of months.? He woke up on the morning of his admission with abdominal pain.? Pain was located in the mid abdomen. ? In view of the persistent nature of his symptoms presented to the emergency department.? His assessment was consistent with acute pancreatitis did receive pain meds in the ED and admitted to regular nursing floor for further management. Ct scan of the abdomen/Pelvis (11/17)-? Inflammatory stranding surrounding the pancreatic head and body consistent with acute pancreatitis, clinically correlate with underlying laboratory values.? No evidence of focal fluid collection or abscess. Otherwise no additional acute intra-abdominal process. He had an MRCP that did not show any signs of Chronic pancreatitis, but it did display acute pancreatitis. Work-up in the ED included T96.9, heart rate 108, BP 134/91, respiratory rate 18, CBC with WBC 15.9, hemoglobin 14.9, platelet 225 with left shift, CMP with sodium 134, glucose 223, hepatic profile with T. bili 0.8, AST/ALT 13/20, alk phos 71 otherwise not marked appearing, lipase 2513, ethyl alcohol less than 3.? In the ED patient ministered Phenergan 12.5 mg IM IM x1, Zofran 4 mg IV x1, Dilaudid 0.5 mg IV x2, Benadryl 25 mg IV x1 as well as 1 L normal saline bolus. [facility] Medical History (Updated 11/29/22 @ 13:[address] Veena Tidwell MD) Alcohol abuse Anxiety and depression Cancer Constipation Diabetes Essential (primary) hypertension Family history of cerebral aneurysm Former tobacco use Gastric ulcer GERD (gastroesophageal reflux disease) GI bleed Glaucoma Hyperlipidemia Myocardial infarct Neck pain Pancreatitis Polyneuropathy PSA elevation PTSD (post-traumatic stress disorder) Seizure disorder Stroke/cerebrovascular accident TIA (transient ischemic attack) Vision loss of left eye Vision loss of right eye Home Medications nitroglycerin 0.4 mg sublingual tablet 0.4 mg sublingual Q5M PRN Chest Pain 07/15/13 [History Last Taken 08/22/15] amitriptyline 25 mg tablet 25 mg PO QHS depression 07/03/18 [History Last Taken 11/27/22] cholecalciferol (vitamin D3) 125 mcg (5,000 unit) capsule 1 cap PO DAILY supplement 11/09/18 [History Last Taken 11/28/22] hydrochlorothiazide 25 mg tablet 25 mg PO DAILY blood pressure/heart #30 tabs 06/05/20 [Rx Last Taken 11/28/22] gabapentin 300 mg capsule 300 mg PO BID nerve pain 10/06/20 [History Last Taken 11/28/22] insulin glargine 100 unit/mL subcutaneous solution (Lantus U-100 Insulin) 10 unit SQ QHS diabetes 12/30/20 [History Last Taken 11/27/22] latanoprost 0.005 % eye drops 1 drp EACH EYE QHS glaucoma 12/07/21 [History Last Taken 11/27/22] magnesium oxide 400 mg (241.3 mg magnesium) tablet 400 mg PO BID supplement 02/27/22 [History Last Taken 11/28/22] pantoprazole 40 mg tablet,delayed release 40 mg PO DAILY gerd 02/27/22 [History Last Taken 11/28/22] pravastatin 40 mg tablet 60 mg PO QHS cholesterol 02/27/22 [History Last Taken 11/27/22] tamsulosin 0.4 mg capsule 0.4 mg PO QHS prostate 02/27/22 [History Last Taken 11/27/22] metformin 500 mg tablet 500 mg PO BID diabetes #0 tabs 03/04/22 [Rx Last Taken 11/28/22] aspirin 81 mg tablet,delayed release 81 mg PO DAILY heart health 07/04/22 [History Last Taken 11/28/22] escitalopram oxalate 10 mg tablet 10 mg PO DAILY depression 07/04/22 [History Last Taken 11/28/22] fluticasone propionate 50 mcg/actuation nasal spray,suspension (Flonase Allergy Relief) 2 spray intranasal DAILY allergies 07/04/22 [History Last Taken 11/28/22] loratadine 10 mg capsule 10 mg PO DAILY allergies 07/04/22 [History Last Taken 11/28/22] losartan 25 mg tablet 25 mg PO DAILY blood pressure 07/04/22 [History Last Taken 11/28/22] omega-3 fatty acids-fish oil 684 mg-1,200 mg capsule,delayed release 2 cap PO DAILY supplement 07/04/22 [History Last Taken 11/28/22] amlodipine 10 mg tablet 10 mg PO DAILY blood pressure #90 tabs 07/27/22 [Rx Last Taken 11/28/22] levetiracetam 500 mg tablet 500 mg PO BID seizures #60 tabs 08/08/22 [Rx Last Taken 11/28/22] naproxen 500 mg tablet 500 mg PO BID PRN Pain 09/06/22 [History Last Taken Unknown] simethicone 80 mg chewable tablet (Gas Relief 80 (simethicone)) 80 mg PO DAILY PRN gas relief 09/06/22 [History Last Taken Unknown] folic acid 1 mg tablet 1 mg PO BREAKFAST #30 tabs 09/08/22 [Rx Last Taken 11/28/22] yljhya-kjacphas-avykpik 12,000-38,000-60,000 unit capsule,delayed rel (Creon) 1 cap PO .TIDAC 30 days #90 caps 09/08/22 [Rx Last Taken 11/28/22] thiamine HCl (vitamin B1) 100 mg tablet (Vitamin B-1) 100 mg PO BREAKFAST #30 tabs 09/08/22 [Rx Last Taken 11/28/22] ursodiol 250 mg tablet 250 mg PO BID liver fibrosis #180 tabs 09/21/22 [Rx Last Taken 11/28/22] levocarnitine 330 mg tablet 330 mg PO BID #60 tabs 09/28/22 [Rx Last Taken 11/28/22] Allergy/AdvReac Type Severity Reaction Status Date / Time lisinopril Allergy Angioedema Verified 11/09/22 16:17 cyclobenzaprine AdvReac Severe Skin Verified 11/09/22 16:17 crawling Iodinated Contrast Media AdvReac Intermediate ITCHY FEET Verified 11/09/22 16:17 [iodine contrast] hydrocodone bitartrate AdvReac Itching Verified 11/09/22 16:17 [From Vicodin] hydromorphone [From Dilaudid] AdvReac Itching Verified 11/09/22 16:17 morphine AdvReac Itching Verified 11/09/22 16:17 tramadol AdvReac Itching Verified 11/09/22 16:17 Family History (Updated 11/29/22 @ 03:[address] Mayelin Pedraza MD) Mother Heart disease Sister Cerebral aneurysm Father Diabetes Kidney disease Anxiety and depression Surgical History (Updated 11/29/22 @ 03:[address] Mayelin Pedraza MD) History of cholecystectomy (12/2013) History of left heart catheterization (10/31/11) Social History (Updated 11/29/22 @ 03:[address] Mayelin Pedraza MD) household members: none Smoking Status: Former smoker Tobacco: How many years used: 7 Electronic Cigarette Use: not used alcohol intake: former details: 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 substance use type: does not use caffeine: No robbin/latter-day: Yazidism seatbelt use: always ROS ROS Narrative Admission Review of Systems: CONSTITUTIONAL: No weight loss, fever, chills, +weakness or fatigue. HEENT: + History of bilateral vision deficits. Eyes: No double vision or yellow sclerae. Ears, Nose, Throat: No hearing loss, sneezing, congestion, runny nose or sore throat. SKIN: + Pruritus following recent pain regimen which is a chronic issue. CARDIOVASCULAR: No chest pain, chest pressure or chest discomfort, palpitations, edema, orthopnea, syncopal events. RESPIRATORY: No shortness of breath, cough or sputum, wheezing, hemoptysis. GASTROINTESTINAL: + anorexia, nausea without vomiting, abdominal pain, No diarrhea, melena, BRBPR. GENITOURINARY: No dysuria, frequency, urgency or retention. NEUROLOGICAL: No headache, dizziness, syncope, paralysis, ataxia, numbness or tingling in the extremities, focal weakness, change in bowel or bladder control, seizure. MUSCULOSKELETAL: + muscle, back pain, joint pain or stiffness. HEMATOLOGIC: + easy bleeding or bruising. LYMPHATICS: No enlarged nodes. No history of splenectomy. PSYCHIATRIC: + history of depression or anxiety. ENDOCRINOLOGIC: No reports of sweating, cold or heat intolerance. No polyuria or polydipsia. ALLERGIES: + history of angioedema, rhinitis. Physical Exam Const oriented x3 and no apparent distress General Appearance: cooperative HEENT normocephalic, head/scalp atraumatic and moist oral mucous membranes Eyes PERRL and EOMs intact bilaterally Neck no lymphadenopathy and supple General: trachea midline Lymph Lymphatic: no lymphadenopathy noted Resp normal respiratory effort, normal air movement and clear to auscultation bilaterally Cardio regular rate, regular rhythm, S1 normal heart sound, S2 normal heart sound and no murmurs GI normal to inspection, nondistended, normoactive bowel sounds GI Narrative: mild epigastric tenderness, no guarding or rebound tenderness. Extremity normal capillary refill, no clubbing, cyanosis or edema and no calf tenderness Skin General Skin Exam: no breakdown Neuro CN's II-XII intact bilaterally, no focal motor deficits and no sensory deficits noted Motor Exam: strength 5/5 throughout Lab / Micro Data Result Diagrams: 11/29/22 06:20 11/29/22 06:20 Labs: Laboratory Results - last 24 hr 11/28/22 23:55: WBC 15.9 H, RBC 4.64, Hgb 14.9, Hct 42.1, MCV 90.7, MCH 32.1 H, MCHC 35.4, RDW Std Deviation 39.1, RDW Coeff of Armin 11.8, Plt Count 225, MPV 9.4, Immature Gran % (Auto) 0.400, Neut % (Auto) 78.1 H, Lymph % (Auto) 14.0 L, [place] % (Auto) 6.5, Eos % (Auto) 0.6, Baso % (Auto) 0.4, Absolute Neuts (auto) 12.4 H, Absolute Lymphs (auto) 2.22, Nucleated RBC % 0.1 11/28/22 23:55: Sodium 134 L, Potassium 3.5, Chloride 100, Carbon Dioxide 26.0, Anion Gap 8, BUN 15, Creatinine 1.17, Estim Creat Clear Calc 71.93, Est GFR (MDRD) Af Amer 82, Est GFR (MDRD) Non-Af 68, BUN/Creatinine Ratio 12.8, Glucose 223 H, Calcium 9.9, Total Bilirubin 0.80, AST 13 L, ALT 20, Alkaline Phosphatase 71, Total Protein 8.3 H, Albumin 4.3, Globulin 4.0, Albumin/Globulin Ratio 1.1, Lipase 2513 H 11/28/22 23:55: Phosphorus 3.3, Magnesium 1.6 11/29/22 01:15: Ethyl Alcohol < 3.0 11/29/22 04:16: POC Glucose 213 H 11/29/22 06:20: WBC 12.8 H, RBC 4.18 L, Hgb 13.3, Hct 38.5 L, MCV 92.1, MCH 31.8, MCHC 34.5, RDW Std Deviation 40.2, RDW Coeff of Armin 11.9, Plt Count 197, MPV 9.6, Immature Gran % (Auto) 0.500, Neut % (Auto) 75.2 H, Lymph % (Auto) 16.2 L, [place] % (Auto) 7.3, Eos % (Auto) 0.5, Baso % (Auto) 0.3, Absolute Neuts (auto) 9.6 H, Absolute Lymphs (auto) 2.07, Nucleated RBC % 0 11/29/22 06:20: Sodium 137, Potassium 3.6, Chloride 105, Carbon Dioxide 25.0, Anion Gap 7, BUN 13, Creatinine 0.99, Estim Creat Clear Calc 85.00, Est GFR (MDRD) Af Amer 100, Est GFR (MDRD) Non-Af 83, BUN/Creatinine Ratio 13.1, Glucose 197 H, Calcium 9.0, Total Bilirubin 0.70, AST 19, ALT 22, Alkaline Phosphatase 68, Total Protein 7.4, Albumin 3.8, Globulin 3.6, Albumin/Globulin Ratio 1.1, Lipase 2333 H 11/29/22 11:02: POC Glucose 178 H 11/29/22 15:20: POC Glucose 220 H Assessment & Plan Assessment/Plan (1) Acute pancreatitis: PLAN: ?Acute pancreatitis possibly secondary to alcoholic pancreatitis.? His last MRI that he had did not show any signs of pancreatic divisum. His previous MRI was not a good study secondary to mild ascites but there was no signs of pancreatic masses or obstructive physiology. Previously his pancreatitis was at the head in genu of the pancreas.? His hematocrit has been decreasing very well with IV fluids.? He still having some abdominal pain.? I suspect that it is from mild paralytic ileus associated with acute pancreatitis in the setting of diabetes mellitus and some possible mechanical gastroparesis. ?Recommend azithromycin 500 mg IV once a day to increase motility of the small bowel.? I would also give him Reglan 5 mg every 6 hours [id number].? I would give him Colace 100mg p.o. twice daily and I would repeat his CT scan of the abdomen pelvis tomorrow to make sure he has no signs of gastric outlet obstruction, worsening ileus and less likely necrosis.? Depending on what the CT scan abdomen pelvis shows he may need a procedure for therapeutic purposes. There is also possibility that he has type II autoimmune pancreatitis. When he was here previously I had drawn IgG4 level and gammaglobulins and we will both normal. That typically rules out type I autoimmune hepatitis. He has not had an endoscopic ultrasound with biopsies of the pancreas. I believe as per the julian greco he did not have that due to increased risk of pancreatitis with fine- needle aspiration. The only other type of pancreatitis that I think he would be at most risk for his chronic pancreatitis secondary to alcoholism and acute recurrent pancreatitis. He does not have gross calcifications and I do not see any ductal dilation on his previous MRCP that he had last year. 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 If he does have a good response then we will decrease him down to 0.3 mg/kg as an outpatient. Depending on his repeat imaging whether he would benefit from possible endoscopic procedure. Charges/Coding Visit Charges Inpatient E&M: 11869 Init Hosp L3
--- NOTE | 2022-11-29 19:00 | PCM.HOSP.N ---
Hospitalist Note Per GI recommendations will add azithromycin 500 mg IV to start now, colace 100 mg BID, scheduled reglan 5 mg q 6 hours and plan repeat CT A/P in AM to further assess.
[2022-11-29] MEDS: Metoclopramide 10 MG/2 ML Vial 5 MG IV ×2 (19:53→23:31)
[2022-11-29 20:51] VITALS: BP 138/88; PULSE 91; RESP 18; TEMP 36.8; O2SAT 96
[2022-11-29] MEDS: Latanoprost 0.005% 1 Bottle 1 DRP EACH EYE (21:43)
[2022-11-29] MEDS: Amitriptyline 25 MG Tablet PO (21:44)
[2022-11-29] MEDS: Tamsulosin HCl 0.4 MG Capsule PO (21:44)
[2022-11-29] MEDS: Pravastatin 20 MG Tablet 60 MG PO (21:44)
[2022-11-29] MEDS: Insulin Glargine-YFGN 100 UNIT/ML Pen 10 UNIT SC (21:46)
[2022-11-29] MEDS: Docusate Sodium 100 MG Capsule PO (21:54)
[2022-11-29 22:10] LABS: Bedside Glucose 221 mg/dL (74-106)
[2022-11-29] MEDS: 0.9% Saline Lock 10 ML Syringe IV (23:31)
[2022-11-30] MEDS: 0.9% Normal Saline 1,000 ML 150 ML IV ×4 (00:01→21:03)
[2022-11-30] MEDS: oxyCODONE 5 MG Tablet PO ×4 (00:01→23:55)
[2022-11-30 00:06] LABS: Bedside Glucose 196 mg/dL (74-106)
[2022-11-30 02:09] VITALS: BP 118/71; PULSE 95; RESP 18; TEMP 37; O2SAT 94
[2022-11-30] MEDS: Metoclopramide 10 MG/2 ML Vial 5 MG IV ×4 (05:47→23:50)
[2022-11-30] MEDS: 0.9% Saline Lock 10 ML Syringe IV ×4 (05:48→23:50)
[2022-11-30] MEDS: DiphenhydrAMINE 50 MG/ML Syringe 25 MG IV (05:50)
[2022-11-30] MEDS: Insulin Lispro 100 UNIT/ML INSULN.PEN SC ×4 (05:52→23:49)
--- NOTE | 2022-11-30 05:55 | CT_ITS ---
EXAM: CT ABDOMEN AND PELVIS WITH INTRAVENOUS CONTRAST CLINICAL INDICATION: Reassess pancreatitis, ileus TECHNIQUE: Helically acquired images were obtained of the abdomen and pelvis with intravenous contrast. This CT exam was performed using one or more of the following dose reduction techniques: automated exposure control, adjustment of the mA and/or kV according to patient size, and/or use of iterative reconstruction technique. This report was created using JME[employer] report generation technology. CONTRAST: IV 100mL [id number] COMPARISON: 10/26/2022 FINDINGS: LOWER THORAX: Unremarkable. Lung bases are clear. No cardiomegaly. No significant pericardial effusion. ABDOMEN: LIVER: Unremarkable. Homogeneous. No focal mass. GALLBLADDER AND BILE DUCTS: Cholecystectomy. No intra- or extrahepatic biliary ductal dilation. PANCREAS: Minimal stranding adjacent to the pancreas. No focal cystic or solid mass. SPLEEN: Unremarkable. Normal size without focal cystic or solid mass. ADRENALS: Unremarkable. No nodules. KIDNEYS AND URETERS: Unremarkable. Normal renal size and position. No hydronephrosis. STOMACH AND BOWEL: Unremarkable. No stomach or bowel distention. No focal inflammatory change. PELVIS: APPENDIX: No evidence of acute appendicitis. BLADDER: Unremarkable. REPRODUCTIVE: Unremarkable as visualized. No mass. ABDOMEN and PELVIS: INTRAPERITONEAL SPACE: Small amount of free fluid in the pelvis. No free air. BONES/JOINTS: Degenerative changes of the spine. No suspicious lytic or blastic abnormality. SOFT TISSUES: Unremarkable. No discrete abdominal or pelvic wall hernia. VASCULATURE: Moderate atherosclerotic changes of the abdominal aorta without aneurysm. LYMPH NODES: Unremarkable. No enlarged lymph nodes. CT/Abdomen/Pelvis W IV Cont ONLY IMPRESSION: Minimal stranding adjacent to the pancreas. Findings consistent with mild pancreatitis, with a similar appearance to the previous exam. No evidence of pancreatic necrosis or pseudocyst. Electronically Signed: Manohar Obrien MD at 6:40 EST ,
[2022-11-30 06:00] VITALS: BMI 26.6
[2022-11-30 06:21] LABS: Bedside Glucose 189 mg/dL (74-106)
[2022-11-30 07:43] VITALS: O2SAT 93
[2022-11-30 08:09] VITALS: BP 131/95; PULSE 87; RESP 18; TEMP 36.6; O2SAT 97
[2022-11-30] MEDS: Aspirin E.C. 81 MG Tablet PO (08:20)
[2022-11-30] MEDS: levOCARNitine 330 MG TABLET PO ×2 (08:20→17:33)
[2022-11-30] MEDS: Creon 12,000 unit DR CapSULE 1 CAP PO ×3 (08:20→17:33)
[2022-11-30] MEDS: Folic Acid 1 MG Tablet PO (08:20)
[2022-11-30] MEDS: Thiamine Hydrochloride 100 MG Tablet PO (08:21)
[2022-11-30] MEDS: levETIRAcetam 500 MG Tablet PO ×2 (08:21→21:07)
[2022-11-30] MEDS: Ursodiol 250 MG Tablet PO ×2 (08:21→21:07)
[2022-11-30] MEDS: Escitalopram Oxalate 10 MG Tablet PO (08:21)
[2022-11-30] MEDS: amLODIPine 10 MG Tablet PO (08:21)
[2022-11-30] MEDS: Losartan Potassium 25 MG Tablet PO (08:21)
[2022-11-30] MEDS: Loratadine 10 MG Tablet PO (08:21)
[2022-11-30] MEDS: Fluticasone 0.05% 1 SPRAY NASAL.SRY 2 SPRAY NASAL (08:22)
[2022-11-30] MEDS: Gabapentin 300 MG Capsule PO ×2 (08:27→17:33)
[2022-11-30] MEDS: MethylPREDNISolone 125 MG/2 ML Vial 60 MG IV (08:27)
[2022-11-30] MEDS: Docusate Sodium 100 MG Capsule PO ×2 (08:28→21:07)
[2022-11-30 08:39] LABS: Absolute Lymphocyte Count 1.44 X10^3/uL (0.83-4.51); Absolute Neutrophil Count 8.4 X10^3/uL (2.0-7.7); Basophil# 0.02 X10^3/uL; Basophil% 0.2 % (0-1); Hematocrit 34.3 % (40-54); Hemoglobin 11.9 g/dL (13.0-16.5); Lymphocyte # 1.44 X10^3/ul (0.83-4.51); Lymphocyte % 13.7 % (19-41); Mean Corp Hgb Conc 34.7 g/dL (32-36); Mean Corpuscular Volume 92.2 fL (80-94); Mean Platelet Vol. 9.1 fl (6.2-12.0); Monocyte# 0.51 X10^3/uL; Monocyte% 4.9 % (0-10); NRBC Flagged by Analyzer 0 % (0-5); Neutrophil # 8.43 X10^3/uL (2.7-7.7); Neutrophil % 80.3 % (47-70); Platelet Count 150 K/mm3 (150-450); RBC Distribution Width CV 12.2 % (11.6-14.6); RBC Distribution Width SD 41.1 fl (35.1-43.9); Red Blood Count 3.72 M/mm3 (4.6-6.2); White Blood Count 10.5 K/mm3 (4.4-11.0)
[2022-11-30 08:59] LABS: Anion Gap 8 (5-15); BUN 10 mg/dL (7-18); Calcium,Total 8.4 mg/dL (8.5-10.1); Chloride 107 mmol/L (98-107); Creatinine, Serum 0.91 mg/dL (0.70-1.30); EST Glomerular Filtration Rate 91 mL/min (>60); Est Glom Filt Rate - Afr Amer 111 mL/min (>60); Estimated Creatinine Clearance 92.48 ml/min; Glucose 162 mg/dL (74-106); Potassium 3.5 mmol/L (3.5-5.1); Sodium Level 138 mmol/L (136-145)
[2022-11-30 11:16] LABS: Amylase 75 U/L (25-115); Lipase 423 U/L (73-393)
[2022-11-30 11:24] LABS: Erythrocyte Sedimentation Rate 28 mm/hr (0-20)
--- NOTE | 2022-11-30 11:26 | PN_ITS ---
Subjective Subjective Patient seen and examined. His abdominal pain had improved. He was ready to start a diet. He denied any fever, chills, shortness of breath, nausea vomiting or diarrhea. Review of systems otherwise negative. Objective Data Objective Data Vital Signs: Vital Signs Temp Pulse Resp BP Pulse Ox O2 Del Method 97.9 F 87 18 131/95 H 97 Room Air 11/30/22 08:09 11/30/22 08:09 11/30/22 08:09 11/30/22 08:09 11/30/22 08:09 11/30/22 08:11 Oxygen Delivery Method Room Air Weight: 185 lb 6.54 oz Body Mass Index (BMI) 26.6 Intake & Output: Intake and Output for Last 24 Hours 11/28/22 11/29/22 11/30/22 23:59 23:59 23:59 Intake Total 3795.0 / 3795.0 1697.5 / 1697.5 Balance 3795.0 / 3795.0 1697.5 / 1697.5 Lab / Micro Data Result Diagrams: 11/30/22 08:25 11/30/22 08:25 Labs: Laboratory Results - last 24 hr 11/29/22 11:02: POC Glucose 178 H 11/29/22 15:20: POC Glucose 220 H 11/29/22 21:46: POC Glucose 221 H 11/29/22 23:33: POC Glucose 196 H 11/30/22 05:52: POC Glucose 189 H 11/30/22 08:25: WBC 10.5, RBC 3.72 L, Hgb 11.9 L, Hct 34.3 L, MCV 92.2, MCH 32.0, MCHC 34.7, RDW Std Deviation 41.1, RDW Coeff of Armin 12.2, Plt Count 150, MPV 9.1, Immature Gran % (Auto) 0.900, Neut % (Auto) 80.3 H, Lymph % (Auto) 13.7 L, [place] % (Auto) 4.9, Eos % (Auto) 0.0, Baso % (Auto) 0.2, Absolute Neuts (auto) 8.4 H, Absolute Lymphs (auto) 1.44, Nucleated RBC % 0 11/30/22 08:25: Sodium 138, Potassium 3.5, Chloride 107, Carbon Dioxide 23.0, Anion Gap 8, BUN 10, Creatinine 0.91, Estim Creat Clear Calc 92.48, Est GFR (MDRD) Af Amer 111, Est GFR (MDRD) Non-Af 91, BUN/Creatinine Ratio 11.0, Glucose 162 H, Calcium 8.4 L 11/30/22 08:25: ESR 28 H 11/30/22 08:25: C-React Prot Ext Range 64.40 H, Amylase 75, Lipase 423 H Radiography Diagnostic Testing: Radiology Impression Abdomen/Pelvis CT 11/30/22 05:55 IMPRESSION: Minimal stranding adjacent to the pancreas. Findings consistent with mild pancreatitis, with a similar appearance to the previous exam. No evidence of pancreatic necrosis or pseudocyst. Electronically Signed: Manohar Obrien MD at 6:40 EST , Physical Exam Const alert, oriented x3 and no apparent distress General Appearance: cooperative HEENT normocephalic, head/scalp atraumatic and moist oral mucous membranes Eyes PERRL and EOMs intact bilaterally Neck no lymphadenopathy and supple General: trachea midline Lymph Lymphatic: no lymphadenopathy noted Resp normal respiratory effort, normal air movement and clear to auscultation jeb aterally Cardio regular rate, regular rhythm, S1 normal heart sound, S2 normal heart sound and no murmurs GI normal to inspection, nondistended, normoactive bowel sounds GI Narrative: minimal epigastric tenderness, no guarding or rebound tenderness. Extremity normal capillary refill, no clubbing, cyanosis or edema and no calf tenderness Skin General Skin Exam: no breakdown Neuro CN's II-XII intact bilaterally, no focal motor deficits and no sensory deficits noted Motor Exam: strength 5/5 throughout Assessment & Plan Assessment/Plan (1) Abdominal pain: (2) Nausea: (3) Acute pancreatitis: PLAN: Plan #Acute on chronic pancreatitis * abdominal pain is improving. * he denies drinking alcohol. cause of pancreatitis is not clear * lipase has trended down * will put on full liquid diet today, and advance as tolerated. * IV pain medication- IV dilaudid * on Creon. * DC IVF once he is tolerating fluids * #Type 2 diabetes mellitus: hold lantus. ISS. Accuchecks ACHS #History of stroke: On aspirin and statin #History of seizures: On Keppra #Hypertension: On amlodipine and losartan #BPH: on flomax #History of liver fibrosis: on ursodiol #Depression and anxiety: on amitryptiline and escitalopram DVT prophylaxis: lovenox Charges/Coding Visit Charges Inpatient E&M: 10397 Subs Hosp L2
[2022-11-30 12:20] LABS: Bedside Glucose 235 mg/dL (74-106)
--- NOTE | 2022-11-30 12:53 | PN_ITS ---
Subjective Subjective He thinks that the steroids might be helping. His blood work has been improving. His abdominal pain is a little bit better. He rates it at a 8 out of 10 which is down from. He states that he is starting to get hungry. Objective Data Objective Data Vital Signs: Vital Signs Temp Pulse Resp BP Pulse Ox O2 Del Method 97.9 F 87 18 131/95 H 97 Room Air 11/30/22 08:09 11/30/22 08:09 11/30/22 08:09 11/30/22 08:09 11/30/22 08:09 11/30/22 08:11 Oxygen Delivery Method Room Air Weight: 185 lb 6.54 oz Body Mass Index (BMI) 26.6 Intake & Output: Intake and Output for Last 24 Hours 11/28/22 11/29/22 11/30/22 23:59 23:59 23:59 Intake Total 3795.0 / 3795.0 1697.5 / 1697.5 Balance 3795.0 / 3795.0 1697.5 / 1697.5 Lab / Micro Data Result Diagrams: 11/30/22 08:25 11/30/22 08:25 Labs: Laboratory Results - last 24 hr 11/29/22 15:20: POC Glucose 220 H 11/29/22 21:46: POC Glucose 221 H 11/29/22 23:33: POC Glucose 196 H 11/30/22 05:52: POC Glucose 189 H 11/30/22 08:25: WBC 10.5, RBC 3.72 L, Hgb 11.9 L, Hct 34.3 L, MCV 92.2, MCH 32.0, MCHC 34.7, RDW Std Deviation 41.1, RDW Coeff of Armin 12.2, Plt Count 150, MPV 9.1, Immature Gran % (Auto) 0.900, Neut % (Auto) 80.3 H, Lymph % (Auto) 13.7 L, [place] % (Auto) 4.9, Eos % (Auto) 0.0, Baso % (Auto) 0.2, Absolute Neuts (auto) 8.4 H, Absolute Lymphs (auto) 1.44, Nucleated RBC % 0 11/30/22 08:25: Sodium 138, Potassium 3.5, Chloride 107, Carbon Dioxide 23.0, Anion Gap 8, BUN 10, Creatinine 0.91, Estim Creat Clear Calc 92.48, Est GFR (M DRD) Af Amer 111, Est GFR (MDRD) Non-Af 91, BUN/Creatinine Ratio 11.0, Glucose 162 H, Calcium 8.4 L 11/30/22 08:25: ESR 28 H 11/30/22 08:25: C-React Prot Ext Range 64.40 H, Amylase 75, Lipase 423 H 11/30/22 11:46: POC Glucose 235 H Radiography Diagnostic Testing: Radiology Impression Abdomen/Pelvis CT 11/30/22 05:55 IMPRESSION: Minimal stranding adjacent to the pancreas. Findings consistent with mild pancreatitis, with a similar appearance to the previous exam. No evidence of pancreatic necrosis or pseudocyst. Electronically Signed: Manohar Obrien MD at 6:40 EST , Physical Exam Const alert, oriented x3 and no apparent distress General Appearance: cooperative HEENT normocephalic, head/scalp atraumatic and moist oral mucous membranes Eyes PERRL and EOMs intact bilaterally Neck no lymphadenopathy and supple General: trachea midline Lymph Lymphatic: no lymphadenopathy noted Resp normal respiratory effort, normal air movement and clear to auscultation bilaterally Cardio regular rate, regular rhythm, S1 normal heart sound, S2 normal heart sound and no murmurs GI normal to inspection, nondistended, normoactive bowel sounds GI Narrative: minimal epigastric tenderness, no guarding or rebound tenderness. Extremity normal capillary refill, no clubbing, cyanosis or edema and no calf tenderness Skin General Skin Exam: no breakdown Neuro CN's II-XII intact bilaterally, no focal motor deficits and no sensory deficits noted Motor Exam: strength 5/5 throughout Assessment & Plan Assessment/Plan (1) Acute pancreatitis: PLAN: ?Acute pancreatitis possibly secondary to alcoholic pancreatitis.? His last MRI that he had did not show any signs of pancreatic divisum. His previous MRI was not a good study secondary to mild ascites but there was no signs of pancreatic masses or obstructive physiology. Previously his pancreatitis was at the head in genu of the pancreas.? His hematocrit has been decreasing very well with IV fluids.? He still having some abdominal pain.? I suspect that it is from mild paralytic ileus associated with acute pancreatitis in the setting of diabetes mellitus and some possible mechanical gastroparesis. ?Recommend azithromycin 500 mg IV once a day to increase motility of the small bowel.? I would also give him Reglan 5 mg every 6 hours [id number].? I would give him Colace 100mg p.o. twice daily and I would repeat his CT scan of the abdomen pelvis tomorrow to make sure he has no signs of gastric outlet obstruction, worsening ileus and less likely necrosis.? Depending on what the CT scan abdomen pelvis shows he may need a procedure for therapeutic purposes. There is also possibility that he has type II autoimmune pancreatitis. When he was here previously I had drawn IgG4 level and gammaglobulins and we will both normal. That typically rules out type I autoimmune hepatitis. He has not had an endoscopic ultrasound with biopsies of the pancreas. I believe as per the patient he did not have that due to increased risk of pancreatitis with fine- needle aspiration. The only other type of pancreatitis that I think he would be at most risk for his chronic pancreatitis secondary to alcoholism and acute recurrent pancreatitis. He does not have gross calcifications and I do not see any ductal dilation on his previous MRCP that he had last year. 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 If he does have a good response then we will decrease him down to 0.3 mg/kg as an outpatient. Depending on his repeat imaging whether he would benefit from possible endoscopic procedure. 2022-his CRP is 64 and his ESR is elevated at 28. His lipase is coming with IV fluids and hopefully is improving secondary to steroid therapy. Working diagnosis at this time is type II pancreatitis being that his IgG4 was normal and he does not have any other signs or symptoms of progressive pancreatitis. He has had other criteria for early pancreatitis including a pancreatic lesion in the head and the tail which is improved. His MRCP did not show any signs of stricturing disease or chronic pancreatitis. He still has a possibility of chronic pancreatitis. He has not undergone endoscopic ultrasound for fine- needle aspiration to determine what his amylase, lipase, K-maninder and CA testing show. For now I will put him on Ensure clear 4 times a day along with introducing full liquid diet. Continue IV fluids at current dose as his hematocrit and BUN are improving as per Samson's criteria. Charges/Coding Visit Charges Inpatient E&M: 38109 Subs Hosp L3
[2022-11-30 14:03] VITALS: BP 126/80; PULSE 102; RESP 18; TEMP 36.7; O2SAT 98
[2022-11-30 17:55] LABS: Bedside Glucose 319 mg/dL (74-106)
[2022-11-30 20:30] VITALS: BP 138/89; PULSE 76; RESP 18; TEMP 36.6; O2SAT 100
[2022-11-30] MEDS: Insulin Glargine-YFGN 100 UNIT/ML Pen 10 UNIT SC (21:03)
[2022-11-30] MEDS: Latanoprost 0.005% 1 Bottle 1 DRP EACH EYE (21:06)
[2022-11-30] MEDS: Amitriptyline 25 MG Tablet PO (21:07)
[2022-11-30] MEDS: Pravastatin 20 MG Tablet 60 MG PO (21:07)
[2022-11-30] MEDS: Tamsulosin HCl 0.4 MG Capsule PO (21:07)
[2022-11-30 21:31] LABS: Bedside Glucose 205 mg/dL (74-106)
[2022-12-01 00:11] LABS: Bedside Glucose 189 mg/dL (74-106)
[2022-12-01 01:20] VITALS: BMI 27.3
[2022-12-01 02:30] VITALS: BP 138/85; PULSE 82; RESP 18; TEMP 36.6; O2SAT 95
[2022-12-01] MEDS: 0.9% Normal Saline 1,000 ML 150 ML IV ×3 (02:57→18:12)
[2022-12-01] MEDS: oxyCODONE 5 MG Tablet PO ×3 (04:50→20:15)
[2022-12-01] MEDS: Insulin Lispro 100 UNIT/ML INSULN.PEN SC ×4 (05:58→20:35)
[2022-12-01] MEDS: Metoclopramide 10 MG/2 ML Vial 5 MG IV ×3 (05:59→17:20)
[2022-12-01 07:05] LABS: Absolute Lymphocyte Count 2.84 X10^3/uL (0.83-4.51); Absolute Neutrophil Count 9.1 X10^3/uL (2.0-7.7); Basophil# 0.02 X10^3/uL; Basophil% 0.2 % (0-1); Eosinophil# 0.01 X10^3/uL; Eosinophils% 0.1 % (0-5); Hematocrit 35.4 % (40-54); Hemoglobin 12.1 g/dL (13.0-16.5); Lymphocyte # 2.84 X10^3/ul (0.83-4.51); Lymphocyte % 22.1 % (19-41); Mean Corp Hgb Conc 34.2 g/dL (32-36); Mean Corpuscular Hgb 31.3 pg (27.0-32.0); Mean Corpuscular Volume 91.5 fL (80-94); Mean Platelet Vol. 9.8 fl (6.2-12.0); Monocyte# 0.82 X10^3/uL; Monocyte% 6.4 % (0-10); NRBC Flagged by Analyzer 0 % (0-5); Neutrophil # 9.06 X10^3/uL (2.7-7.7); Neutrophil % 70.5 % (47-70); Platelet Count 174 K/mm3 (150-450); RBC Distribution Width CV 12.2 % (11.6-14.6); RBC Distribution Width SD 40.6 fl (35.1-43.9); Red Blood Count 3.87 M/mm3 (4.6-6.2); White Blood Count 12.8 K/mm3 (4.4-11.0)
[2022-12-01 07:21] LABS: ALB/GLOB Ratio 0.9 RATIO (0.9-2.4); AST(SGOT) 15 U/L (15-37); Alanine Aminotransfer ALT/SGPT 16 U/L (16-61); Albumin, Serum 3.6 g/dL (3.2-5.0); Alkaline Phosphatase 60 U/L (45-117); Anion Gap 6 (5-15); BUN 8 mg/dL (7-18); BUN/Creat Ratio 9.3 RATIO (10-20); Calcium,Total 8.5 mg/dL (8.5-10.1); Chloride 110 mmol/L (98-107); Creatinine, Serum 0.86 mg/dL (0.70-1.30); EST Glomerular Filtration Rate 98 mL/min (>60); Est Glom Filt Rate - Afr Amer 118 mL/min (>60); Estimated Creatinine Clearance 97.85 ml/min; Globulin 3.9 g/dL (2.2-4.2); Glucose 163 mg/dL (74-106); Potassium 3.3 mmol/L (3.5-5.1); Protein, Total 7.5 g/dL (6.4-8.2); Sodium Level 139 mmol/L (136-145)
[2022-12-01 07:45] LABS: Amylase 67 U/L (25-115); Lipase 593 U/L (73-393)
[2022-12-01 08:09] LABS: Erythrocyte Sedimentation Rate 27 mm/hr (0-20)
[2022-12-01] MEDS: Aspirin E.C. 81 MG Tablet PO (08:09)
[2022-12-01] MEDS: levOCARNitine 330 MG TABLET PO ×2 (08:09→17:20)
[2022-12-01] MEDS: Thiamine Hydrochloride 100 MG Tablet PO (08:09)
[2022-12-01] MEDS: Creon 12,000 unit DR CapSULE 1 CAP PO ×3 (08:09→17:20)
[2022-12-01] MEDS: Gabapentin 300 MG Capsule PO ×2 (08:09→17:20)
[2022-12-01] MEDS: Folic Acid 1 MG Tablet PO (08:09)
[2022-12-01] MEDS: Fluticasone 0.05% 1 SPRAY NASAL.SRY 2 SPRAY NASAL (08:09)
[2022-12-01] MEDS: Docusate Sodium 100 MG Capsule PO ×2 (08:10→20:17)
[2022-12-01] MEDS: Losartan Potassium 25 MG Tablet PO (08:10)
[2022-12-01] MEDS: Ursodiol 250 MG Tablet PO ×2 (08:10→20:16)
[2022-12-01] MEDS: Escitalopram Oxalate 10 MG Tablet PO (08:10)
[2022-12-01] MEDS: levETIRAcetam 500 MG Tablet PO ×2 (08:10→20:16)
[2022-12-01] MEDS: amLODIPine 10 MG Tablet PO (08:10)
[2022-12-01] MEDS: Loratadine 10 MG Tablet PO (08:10)
[2022-12-01] MEDS: MethylPREDNISolone 125 MG/2 ML Vial 60 MG IV (08:15)
[2022-12-01 08:30] VITALS: BP 142/100; PULSE 85; RESP 18; TEMP 36.6; O2SAT 99
--- NOTE | 2022-12-01 11:32 | PN_ITS ---
Subjective Subjective Patient seen and examined. He said he still had some abdominal pain which he thinks was due to him advancing his diet. He denied any nausea, vomiting, diarrhea, fever or chills or any other symptoms. REview of systems is otherwise negative. He has remained hemodynamically stable. Objective Data Objective Data Vital Signs: Vital Signs Temp Pulse Resp BP Pulse Ox O2 Del Method 97.9 F 85 18 142/100 H 99 Room Air 12/01/22 08:30 12/01/22 08:30 12/01/22 08:30 12/01/22 08:30 12/01/22 08:30 12/01/22 08:30 Oxygen Delivery Method Room Air Weight: 190 lb 7.67 oz Body Mass Index (BMI) 27.3 Intake & Output: Intake and Output for Last 24 Hours 11/29/22 11/30/22 12/01/22 23:59 23:59 23:59 Intake Total 3795.0 / 3795.0 3807.5 / 3807.5 1994 Balance 3795.0 / 3795.0 3807.5 / 3807.5 1994 Lab / Micro Data Result Diagrams: 12/01/22 06:00 12/01/22 06:00 Labs: Laboratory Results - last 24 hr 11/30/22 11:46: POC Glucose 235 H 11/30/22 17:29: POC Glucose 319 H 11/30/22 21:02: POC Glucose 205 H 11/30/22 23:48: POC Glucose 189 H 12/01/22 06:00: WBC 12.8 H, RBC 3.87 L, Hgb 12.1 L, Hct 35.4 L, MCV 91.5, MCH 31.3, MCHC 34.2, RDW Std Deviation 40.6, RDW Coeff of Armin 12.2, Plt Count 174, MPV 9.8, Immature Gran % (Auto) 0.700, Neut % (Auto) 70.5 H, Lymph % (Auto) 22.1, [place] % (Auto) 6.4, Eos % (Auto) 0.1, Baso % (Auto) 0.2, Absolute Neuts (auto) 9.1 H, Absolute Lymphs (auto) 2.84, Nucleated RBC % 0 12/01/22 06:00: Sodium 139, Potassium 3.3 L, Chloride 110 H, Carbon Dioxide 23.0, Anion Gap 6, BUN 8, Creatinine 0.86, Estim Creat Clear Calc 97.85, Est GFR (MDRD) Af Amer 118, Est GFR (MDRD) Non-Af 98, BUN/Creatinine Ratio 9.3 L, Glucose 163 H, Calcium 8.5, Total Bilirubin 1.00, AST 15, ALT 16, Alkaline Phosphatase 60, Total Protein 7.5, Albumin 3.6, Globulin 3.9, Albumin/Globulin Ratio 0.9 12/01/22 06:00: ESR 27 H 12/01/22 06:00: C-React Prot Ext Range 27.20 H, Amylase 67, Lipase 593 H Physical Exam Const alert, oriented x3 and no apparent distress General Appearance: cooperative HEENT normocephalic, head/scalp atraumatic and moist oral mucous membranes Eyes PERRL and EOMs intact bilaterally Neck no lymphadenopathy and supple General: trachea midline Lymph Lymphatic: no lymphadenopathy noted Resp normal respiratory effort, normal air movement and clear to auscultation bilaterally Cardio regular rate, regular rhythm, S1 normal heart sound, S2 normal heart sound and no murmurs GI normal to inspection, nondistended, normoactive bowel sounds GI Narrative: abdomen soft, nontender, no organomegaly Extremity normal capillary refill, no clubbing, cyanosis or edema and no calf tenderness Skin General Skin Exam: no breakdown Neuro CN's II-XII intact bilaterally, no focal motor deficits and no sensory deficits noted Motor Exam: strength 5/5 throughout Psych thought process normal Assessment & Plan Assessment/Plan (1) Abdominal pain: (2) Nausea: (3) Acute pancreatitis: PLAN: Plan #Acute on chronic pancreatitis * he was started on a diet yesterday but says this aggravated his pain * will place back on clear liquid diet * continue IV dilaudid prn for pain * on Creon. * try to advance from clear liquid diet today if tolerated. * * #Type 2 diabetes mellitus: hold lantus. ISS. Accuchecks ACHS #History of stroke: On aspirin and statin #History of seizures: On Keppra #Hypertension: On amlodipine and losartan #BPH: on flomax #History of liver fibrosis: on ursodiol #Depression and anxiety: on amitryptiline and escitalopram DVT prophylaxis: lovenox Charges/Coding Visit Charges Inpatient E&M: 91127 Subs Hosp L2
[2022-12-01 11:55] LABS: Bedside Glucose 217 mg/dL (74-106)
[2022-12-01 14:15] VITALS: BP 140/93; PULSE 88; RESP 18; TEMP 36.4; O2SAT 98
[2022-12-01 17:40] LABS: Bedside Glucose 154 mg/dL (74-106)
[2022-12-01 17:40] LABS: Bedside Glucose 236 mg/dL (74-106)
--- NOTE | 2022-12-01 18:22 | PN_ITS ---
Subjective Subjective Patient had some more abdominal pain and bloating today. He also complained of some nausea without chest pain or shortness of breath. He has not had a bowel movement. Objective Data Objective Data Vital Signs: Vital Signs Temp Pulse Resp BP Pulse Ox O2 Del Method 97.6 F L 88 18 140/93 H 98 Room Air 12/01/22 14:15 12/01/22 14:15 12/01/22 14:15 12/01/22 14:15 12/01/22 14:15 12/01/22 14:15 Oxygen Delivery Method Room Air Weight: 190 lb 7.67 oz Body Mass Index (BMI) 27.3 Intake & Output: Intake and Output for Last 24 Hours 11/29/22 11/30/22 12/01/22 23:59 23:59 23:59 Intake Total 3795.0 / 3795.0 3807.5 / 3807.5 3250 / 3250 Balance 3795.0 / 3795.0 3807.5 / 3807.5 3250 / 3250 Lab / Micro Data Result Diagrams: 12/01/22 06:00 12/01/22 06:00 Labs: Laboratory Results - last 24 hr 11/30/22 21:02: POC Glucose 205 H 11/30/22 23:48: POC Glucose 189 H 12/01/22 05:57: POC Glucose 154 H 12/01/22 06:00: WBC 12.8 H, RBC 3.87 L, Hgb 12.1 L, Hct 35.4 L, MCV 91.5, MCH 31.3, MCHC 34.2, RDW Std Deviation 40.6, RDW Coeff of Armin 12.2, Plt Count 174, MPV 9.8, Immature Gran % (Auto) 0.700, Neut % (Auto) 70.5 H, Lymph % (Auto) 22.1, [place] % (Auto) 6.4, Eos % (Auto) 0.1, Baso % (Auto) 0.2, Absolute Neuts (auto) 9.1 H, Absolute Lymphs (auto) 2.84, Nucleated RBC % 0 12/01/22 06:00: Sodium 139, Potassium 3.3 L, Chloride 110 H, Carbon Dioxide 23.0, Anion Gap 6, BUN 8, Creatinine 0.86, Estim Creat Clear Calc 97.85, Est GFR (MDRD) Af Amer 118, Est GFR (MDRD) Non-Af 98, BUN/Creatinine Ratio 9.3 L, Glucose 163 H, Calcium 8.5, Total Bilirubin 1.00, AST 15, ALT 16, Alkaline Phosphatase 60, Total Protein 7.5, Albumin 3.6, Globulin 3.9, Albumin/Globulin Ratio 0.9 12/01/22 06:00: ESR 27 H 12/01/22 06:00: C-React Prot Ext Range 27.20 H, Amylase 67, Lipase 593 H 12/01/22 11:30: POC Glucose 217 H 12/01/22 17:18: POC Glucose 236 H Physical Exam Const alert, oriented x3 and no apparent distress General Appearance: cooperative HEENT normocephalic, head/scalp atraumatic and moist oral mucous membranes Eyes PERRL and EOMs intact bilaterally Neck no lymphadenopathy and supple General: trachea midline Lymph Lymphatic: no lymphadenopathy noted Resp normal respiratory effort, normal air movement and clear to auscultation bilaterally Cardio regular rate, regular rhythm, S1 normal heart sound, S2 normal heart sound and no murmurs GI normal to inspection, nondistended, normoactive bowel sounds GI Narrative: abdomen soft, nontender, no organomegaly Extremity normal capillary refill, no clubbing, cyanosis or edema and no calf tenderness Skin General Skin Exam: no breakdown Neuro CN's II-XII intact bilaterally, no focal motor deficits and no sensory deficits noted Motor Exam: strength 5/5 throughout Psych thought process normal Assessment & Plan Assessment/Plan (1) Acute pancreatitis: PLAN: ?Acute pancreatitis possibly secondary to alcoholic pancreatitis.? His last MRI that he had did not show any signs of pancreatic divisum. His previous MRI was not a good study secondary to mild ascites but there was no signs of pancreatic masses or obstructive physiology. Previously his pancreatitis was at the head in genu of the pancreas.? His hematocrit has been decreasing very well with IV fluids.? He still having some abdominal pain.? I suspect that it is from mild paralytic ileus associated with acute pancreatitis in the setting of diabetes mellitus and some possible mechanical gastroparesis. ?Recommend azithromycin 500 mg IV once a day to increase motility of the small bowel.? I would also give him Reglan 5 mg every 6 hours [id number].? I would give him Colace 100mg p.o. twice daily and I would repeat his CT scan of the abdomen pelvis tomorrow to make sure he has no signs of gastric outlet obstruction, worsening ileus and less likely necrosis.? Depending on what the CT scan abdomen pelvis shows he may need a procedure for therapeutic purposes. There is also possibility that he has type II autoimmune pancreatitis. When he was here previously I had drawn IgG4 level and gammaglobulins and we will both normal. That typically rules out type I autoimmune hepatitis. He has not had an endoscopic ultrasound with biopsies of the pancreas. I believe as per the patient he did not have that due to increased risk of pancreatitis with fine- needle aspiration. The only other type of pancreatitis that I think he would be at most risk for his chronic pancreatitis secondary to alcoholism and acute recurrent pancreatitis. He does not have gross calcifications and I do not see any ductal dilation on his previous MRCP that he had last year. 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 If he does have a good response then we will decrease him down to 0.3 mg/kg as an outpatient. Depending on his repeat imaging whether he would benefit from possible endoscopic procedure. 2022-his CRP is 64 and his ESR is elevated at 28. His lipase is coming with IV fluids and hopefully is improving secondary to steroid therapy. Working diagnosis at this time is type II pancreatitis being that his IgG4 was normal and he does not have any other signs or symptoms of progressive pancreatitis. He has had other criteria for early pancreatitis including a pancreatic lesion in the head and the tail which is improved. His MRCP did not show any signs of stricturing disease or chronic pancreatitis. He still has a possibility of chronic pancreatitis. He has not undergone endoscopic ultrasound for fine- needle aspiration to determine what his amylase, lipase, K-maninder and CA testing show. For now I will put him on Ensure clear 4 times a day along with introducing full liquid diet. Continue IV fluids at current dose as his hematocrit and BUN are improving as per Samson's criteria. 12/01/2022-I agree with changes in his diet back to clear liquid diet. I will start him on azithromycin because he is on Reglan and hopefully it will help to improve his pancreatitis induced ileus in gastroparesis that can be associated with severe pancreatitis. He will also need to be on a stool softener twice a day. Continue IV fluids at current rate of 150 ml/hr. Continue to monitor ESR and CRP. Charges/Coding Visit Charges Inpatient E&M: 22606 Subs Hosp L3
[2022-12-01 19:57] VITALS: BP 149/97; PULSE 79; RESP 18; TEMP 36.6; O2SAT 97
[2022-12-01] MEDS: Amitriptyline 25 MG Tablet PO (20:15)
[2022-12-01] MEDS: Ensure Clear 120 ML Liquid PO (20:17)
[2022-12-01] MEDS: Tamsulosin HCl 0.4 MG Capsule PO (20:17)
[2022-12-01] MEDS: Pravastatin 20 MG Tablet 60 MG PO (20:17)
[2022-12-01] MEDS: Latanoprost 0.005% 1 Bottle 1 DRP EACH EYE (20:18)
[2022-12-01] MEDS: Ondansetron 4 MG/2 ML Vial IV (20:18)
[2022-12-01] MEDS: Insulin Glargine-YFGN 100 UNIT/ML Pen 10 UNIT SC (20:22)
[2022-12-01 22:30] LABS: Bedside Glucose 241 mg/dL (74-106)
[2022-12-02] MEDS: Metoclopramide 10 MG/2 ML Vial 5 MG IV ×3 (00:32→12:14)
[2022-12-02] MEDS: 0.9% Normal Saline 1,000 ML 150 ML IV ×2 (00:35→06:35)
[2022-12-02] MEDS: oxyCODONE 5 MG Tablet PO ×2 (00:36→06:41)
[2022-12-02 00:38] VITALS: BP 133/92; PULSE 73; RESP 18; TEMP 36.4; O2SAT 98
[2022-12-02 06:00] VITALS: BMI 27.3
--- NOTE | 2022-12-02 06:00 | PN_ITS ---
Subjective Subjective Patient is from little bit better today. He is tolerating a diet. He does have some mild nausea but his abdominal pain is a lot better. He rates his abdominal pain at a 3 out of 10. Objective Data Objective Data Vital Signs: Vital Signs Temp Pulse Resp BP Pulse Ox O2 Del Method 98.2 F 93 16 138/88 H 98 Room Air 12/02/22 15:04 12/02/22 15:04 12/02/22 15:04 12/02/22 15:04 12/02/22 15:04 12/02/22 15:04 Oxygen Delivery Method Room Air Weight: 190 lb 4.143 oz Body Mass Index (BMI) 27.3 Intake & Output: Intake and Output for Last 24 Hours 11/30/22 12/01/22 12/02/22 23:59 23:59 23:59 Intake Total 3807.5 / 3807.5 3360 / 3360 3222.5 / 3222.5 Balance 3807.5 / 3807.5 3360 / 3360 3222.5 / 3222.5 Lab / Micro Data Result Diagrams: 12/02/22 06:00 12/02/22 06:00 Labs: Laboratory Results - last 24 hr 12/01/22 20:13: POC Glucose 241 H 12/02/22 06:00: WBC 11.9 H, RBC 3.71 L, Hgb 11.9 L, Hct 34.1 L, MCV 91.9, MCH 32.1 H, MCHC 34.9, RDW Std Deviation 41.1, RDW Coeff of Armin 12.3, Plt Count 154, MPV 9.4, Immature Gran % (Auto) 0.300, Neut % (Auto) 61.1, Lymph % (Auto) 31.5, [place] % (Auto) 6.7, Eos % (Auto) 0.2, Baso % (Auto) 0.2, Absolute Neuts (auto) 7.3, Absolute Lymphs (auto) 3.76, Nucleated RBC % 0 12/02/22 06:00: Sodium 139, Potassium 3.4 L, Chloride 107, Carbon Dioxide 25.0, Anion Gap 7, BUN 8, Creatinine 0.87, Estim Creat Clear Calc 96.73, Est GFR (MDRD) Af Amer 116, Est GFR (MDRD) Non-Af 96, BUN/Creatinine Ratio 9.2 L, Glucose 127 H, Calcium 8.4 L, Total Bilirubin 0.70, AST 11 L, ALT 19, Alkaline Phosphatase 52, Total Protein 6.9, Albumin 3.4, Globulin 3.5, Albumin/Globulin Ratio 1.0 12/02/22 06:00: ESR 19 12/02/22 06:00: C-React Prot Ext Range 12.50 H, Amylase 63, Lipase 482 H 12/02/22 06:33: POC Glucose 137 H 12/02/22 10:43: POC Glucose 210 H Physical Exam Const alert, oriented x3 and no apparent distress General Appearance: cooperative and comfortable Orientation / Consciousness: awake Exam Limitations: no limitations HEENT normocephalic, head/scalp atraumatic, hearing grossly normal bilaterally and moist oral mucous membranes Mouth: oral and palatal mucosa normal Eyes PERRL and EOMs intact bilaterally Neck no lymphadenopathy and supple General: trachea midline Lymph Lymphatic: no lymphadenopathy noted Resp normal respiratory effort, normal air movement and clear to auscultation bilaterally Cardio regular rate, regular rhythm, S1 normal heart sound, S2 normal heart sound and no murmurs GI normal to inspection, nondistended, normoactive bowel sounds GI Narrative: abdomen soft, nontender, no organomegaly Extremity normal capillary refill, no clubbing, cyanosis or edema and no calf tenderness Skin General Skin Exam: no breakdown Neuro oriented x3, CN's II-XII intact bilaterally, moves all extremities, no focal motor deficits and no sensory deficits noted Sensorium / Orientation: awake and alert Motor Exam: strength 5/5 throughout Psych thought process normal Assessment & Plan Assessment/Plan (1) Acute pancreatitis: PLAN: ?Acute pancreatitis possibly secondary to alcoholic pancreatitis.? His last MRI that he had did not show any signs of pancreatic divisum. His previous MRI was not a good study secondary to mild ascites but there was no signs of pancreatic masses or obstructive physiology. Previously his pancreatitis was at the head in genu of the pancreas.? His hematocrit has been decreasing very well with IV fluids.? He still having some abdominal pain.? I suspect that it is from mild paralytic ileus associated with acute pancreatitis in the setting of diabetes mellitus and some possible mechanical gastroparesis. ?Recommend azithromycin 500 mg IV once a day to increase motility of the small bowel.? I would also give him Reglan 5 mg every 6 hours [id number].? I would give him Colace 100mg p.o. twice daily and I would repeat his CT scan of the abdomen pelvis tomorrow to make sure he has no signs of gastric outlet obstruction, worsening ileus and less likely necrosis.? Depending on what the CT scan abdomen pelvis shows he may need a procedure for therapeutic purposes. There is also possibility that he has type II autoimmune pancreatitis. When he was here previously I had drawn IgG4 level and gammaglobulins and we will both normal. That typically rules out type I autoimmune hepatitis. He has not had an endoscopic ultrasound with biopsies of the pancreas. I believe as per the patient he did not have that due to increased risk of pancreatitis with fine- needle aspiration. The only other type of pancreatitis that I think he would be at most risk for his chronic pancreatitis secondary to alcoholism and acute recurrent pancreatitis. He does not have gross calcifications and I do not see any ductal dilation on his previous MRCP that he had last year. 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 If he does have a good response then we will decrease him down to 0.3 mg/kg as an outpatient. Depending on his repeat imaging whether he would benefit from possible endoscopic procedure. 2022-his CRP is 64 and his ESR is elevated at 28. His lipase is coming with IV fluids and hopefully is improving secondary to steroid therapy. Working diagnosis at this time is type II pancreatitis being that his IgG4 was normal and he does not have any other signs or symptoms of progressive pancreatitis. He has had other criteria for early pancreatitis including a pancreatic lesion in the head and the tail which is improved. His MRCP did not show any signs of stricturing disease or chronic pancreatitis. He still has a possibility of chronic pancreatitis. He has not undergone endoscopic ultrasound for fine-need le aspiration to determine what his amylase, lipase, K-maninder and CA testing show. For now I will put him on Ensure clear 4 times a day along with introducing full liquid diet. Continue IV fluids at current dose as his hematocrit and BUN are improving as per [place]'s criteria. 12/01/2022-I agree with changes in his diet back to clear liquid diet. I will start him on azithromycin because he is on Reglan and hopefully it will help to improve his pancreatitis induced ileus in gastroparesis that can be associated with severe pancreatitis. He will also need to be on a stool softener twice a day. Continue IV fluids at current rate of 150 ml/hr. Continue to monitor ESR and CRP. 12/02/2022-his ESR and CRP are improving. IV fluids have been titrated down to KVO. His amylase and lipase are decreasing but are still mildly high. He can be switched to oral azithromycin, Reglan and prednisone. If he tolerates that then he can be DC'd to home with close follow-up. Repeat ESR, CRP, amylase and lipase along repeat CT scan in approximately 5 days. Charges/Coding Visit Charges Inpatient E&M: 27740 Subs Hosp L3
[2022-12-02 06:17] LABS: Absolute Lymphocyte Count 3.76 X10^3/uL (0.83-4.51); Absolute Neutrophil Count 7.3 X10^3/uL (2.0-7.7); Basophil# 0.02 X10^3/uL; Basophil% 0.2 % (0-1); Eosinophil# 0.02 X10^3/uL; Eosinophils% 0.2 % (0-5); Hematocrit 34.1 % (40-54); Hemoglobin 11.9 g/dL (13.0-16.5); Lymphocyte # 3.76 X10^3/ul (0.83-4.51); Lymphocyte % 31.5 % (19-41); Mean Corp Hgb Conc 34.9 g/dL (32-36); Mean Corpuscular Hgb 32.1 pg (27.0-32.0); Mean Corpuscular Volume 91.9 fL (80-94); Mean Platelet Vol. 9.4 fl (6.2-12.0); Monocyte% 6.7 % (0-10); NRBC Flagged by Analyzer 0 % (0-5); Neutrophil # 7.31 X10^3/uL (2.7-7.7); Neutrophil % 61.1 % (47-70); Platelet Count 154 K/mm3 (150-450); RBC Distribution Width CV 12.3 % (11.6-14.6); RBC Distribution Width SD 41.1 fl (35.1-43.9); Red Blood Count 3.71 M/mm3 (4.6-6.2); White Blood Count 11.9 K/mm3 (4.4-11.0)
[2022-12-02 06:37] VITALS: BP 138/93; PULSE 77; RESP 18; TEMP 36.9; O2SAT 96
[2022-12-02 06:54] LABS: BUN 8 mg/dL (7-18); Glucose 127 mg/dL (74-106)
[2022-12-02 06:55] LABS: AST(SGOT) 11 U/L (15-37); Alanine Aminotransfer ALT/SGPT 19 U/L (16-61); Albumin, Serum 3.4 g/dL (3.2-5.0); Alkaline Phosphatase 52 U/L (45-117); Anion Gap 7 (5-15); BUN/Creat Ratio 9.2 RATIO (10-20); Calcium,Total 8.4 mg/dL (8.5-10.1); Chloride 107 mmol/L (98-107); Creatinine, Serum 0.87 mg/dL (0.70-1.30); EST Glomerular Filtration Rate 96 mL/min (>60); Est Glom Filt Rate - Afr Amer 116 mL/min (>60); Estimated Creatinine Clearance 96.73 ml/min; Globulin 3.5 g/dL (2.2-4.2); Potassium 3.4 mmol/L (3.5-5.1); Protein, Total 6.9 g/dL (6.4-8.2); Sodium Level 139 mmol/L (136-145)
[2022-12-02 07:00] LABS: Bedside Glucose 137 mg/dL (74-106)
[2022-12-02 07:39] VITALS: O2SAT 93
[2022-12-02] MEDS: Aspirin E.C. 81 MG Tablet PO (07:40)
[2022-12-02] MEDS: Folic Acid 1 MG Tablet PO (07:40)
[2022-12-02] MEDS: Creon 12,000 unit DR CapSULE 1 CAP PO ×2 (07:40→12:14)
[2022-12-02 07:41] LABS: Amylase 63 U/L (25-115); Lipase 482 U/L (73-393)
[2022-12-02] MEDS: levOCARNitine 330 MG TABLET PO (07:42)
[2022-12-02] MEDS: Thiamine Hydrochloride 100 MG Tablet PO (07:43)
[2022-12-02] MEDS: Gabapentin 300 MG Capsule PO (07:48)
[2022-12-02] MEDS: Potassium Chloride Oral Tablet 20 MEQ 40 MEQ PO (07:49)
[2022-12-02 08:13] LABS: Erythrocyte Sedimentation Rate 19 mm/hr (0-20)
--- NOTE | 2022-12-02 10:16 | CASEMGMT ---
Pt is in need of transportation home at dc and is possibly ready today if he tolerates his diet. TC to [facility] transportation, pt is placed on the schedule for 4pm if able to dc. Kavita is aware that this is pending and RN SAMUEL will call to cancel if need be. She states can be cancelled up til time of 4pm. Pt and nurse aware.
[2022-12-02] MEDS: Loratadine 10 MG Tablet PO (10:35)
[2022-12-02] MEDS: Losartan Potassium 25 MG Tablet PO (10:35)
[2022-12-02] MEDS: Fluticasone 0.05% 1 SPRAY NASAL.SRY 2 SPRAY NASAL (10:35)
[2022-12-02] MEDS: Docusate Sodium 100 MG Capsule PO (10:35)
[2022-12-02] MEDS: amLODIPine 10 MG Tablet PO (10:36)
[2022-12-02] MEDS: levETIRAcetam 500 MG Tablet PO (10:36)
[2022-12-02] MEDS: Ursodiol 250 MG Tablet PO (10:36)
[2022-12-02] MEDS: MethylPREDNISolone 125 MG/2 ML Vial 60 MG IV (10:36)
[2022-12-02] MEDS: Escitalopram Oxalate 10 MG Tablet PO (10:36)
[2022-12-02] MEDS: Ensure Clear 120 ML Liquid PO ×2 (10:38→14:00)
[2022-12-02] MEDS: Insulin Lispro 100 UNIT/ML INSULN.PEN SC (10:49)
[2022-12-02 11:10] LABS: Bedside Glucose 210 mg/dL (74-106)
--- NOTE | 2022-12-02 13:54 | DS.PCM_ITS ---
Providers Date of Admission: 11/29/22 Date of Discharge: 12/02/22 Primary Care Physician: Dr. Lobito Maldonado MD Consultations 11/29/22 04:02 Consult: Gastroenterology Routine Consulting Provider: [facility] Reason for Consult: Recurrent pancreatitis EMERGENT Consult: No Notified: Yes Date Notified: 11/29/22 Time Notified: 02:49 Method of Notification: Text Reason For Visit: ACUTE RECURRENT PANCREATITIS Diagnosis Discharge Diagnosis (1) Acute pancreatitis: Status: Acute Code(s): K85.90 - Acute pancreatitis without necrosis or infection, unspecified Plan #Acute on chronic pancreatitis * he was started on a diet yesterday but says this aggravated his pain * will place back on clear liquid diet * continue IV dilaudid prn for pain * on Creon. * try to advance from clear liquid diet today if tolerated. * * #Type 2 diabetes mellitus: hold lantus. ISS. Accuchecks ACHS #History of stroke: On aspirin and statin #History of seizures: On Keppra #Hypertension: On amlodipine and losartan #BPH: on flomax #History of liver fibrosis: on ursodiol #Depression and anxiety: on amitryptiline and escitalopram DVT prophylaxis: lovenox Medications at Discharge Home Medications nitroglycerin 0.4 mg sublingual tablet 0.4 mg sublingual Q5M PRN Chest Pain 07/15/13 amitriptyline 25 mg tablet 25 mg PO QHS depression 07/03/18 cholecalciferol (vitamin D3) 125 mcg (5,000 unit) capsule 1 cap PO DAILY supplement 11/09/18 hydrochlorothiazide 25 mg tablet 25 mg PO DAILY blood pressure/heart #30 tabs 06/05/20 gabapentin 300 mg capsule 300 mg PO BID nerve pain 10/06/20 insulin glargine 100 unit/mL subcutaneous solution (Lantus U-100 Insulin) 10 unit SQ QHS diabetes 12/30/20 latanoprost 0.005 % eye drops 1 drp EACH EYE QHS glaucoma 12/07/21 magnesium oxide 400 mg (241.3 mg magnesium) tablet 400 mg PO BID supplement 02/27/22 pantoprazole 40 mg tablet,delayed release 40 mg PO DAILY gerd 02/27/22 pravastatin 40 mg tablet 60 mg PO QHS cholesterol 02/27/22 tamsulosin 0.4 mg capsule 0.4 mg PO QHS prostate 02/27/22 metformin 500 mg tablet 500 mg PO BID diabetes #0 tabs 03/04/22 aspirin 81 mg tablet,delayed release 81 mg PO DAILY heart health 07/04/22 escitalopram oxalate 10 mg tablet 10 mg PO DAILY depression 07/04/22 fluticasone propionate 50 mcg/actuation nasal spray,suspension (Flonase Allergy Relief) 2 spray intranasal DAILY allergies 07/04/22 loratadine 10 mg capsule 10 mg PO DAILY allergies 07/04/22 losartan 25 mg tablet 25 mg PO DAILY blood pressure 07/04/22 omega-3 fatty acids-fish oil 684 mg-1,200 mg capsule,delayed release 2 cap PO DAILY supplement 07/04/22 amlodipine 10 mg tablet 10 mg PO DAILY blood pressure #90 tabs 07/27/22 levetiracetam 500 mg tablet 500 mg PO BID seizures #60 tabs 08/08/22 naproxen 500 mg tablet 500 mg PO BID PRN Pain 09/06/22 simethicone 80 mg chewable tablet (Gas Relief 80 (simethicone)) 80 mg PO DAILY PRN gas relief 09/06/22 folic acid 1 mg tablet 1 mg PO BREAKFAST #30 tabs 09/08/22 [id number] 12,000-38,000-60,000 unit capsule,delayed rel (Creon) 1 cap PO .TIDAC 30 days #90 caps 09/08/22 thiamine HCl (vitamin B1) 100 mg tablet (Vitamin B-1) 100 mg PO BREAKFAST #30 tabs 09/08/22 ursodiol 250 mg tablet 250 mg PO BID liver fibrosis #180 tabs 09/21/22 levocarnitine 330 mg tablet 330 mg PO BID #60 tabs 09/28/22 oxycodone 5 mg tablet 5 mg PO Q6H PRN pain 3 days #12 tabs 12/02/22 prednisone 20 mg tablet 40 mg PO DAILY 30 days #60 tabs 12/02/22 Hospital Course Operations None Procedures None Summary of Care Provided Minutes Spent on Discharge: 45 Hospital Course: Patient is a 57-year-old male with a past medical history as outlined which includes recurrent pancreatitis. He was admitted through the ED on 12/02/2022 with a complaint of abdominal pain. He said he had not been drinking any alcohol and had had an egg roll cooked involving the day before admission and after that he started having abdominal pain. It was mainly epigastric. He had a history of pancreatitis. On admission his lipase was elevated. He was admitted and managed for acute recurrent pancreatitis. He was hydrated with IV fluids. He was also given IV pain medication. His abdominal pain gradually improved and he felt better. He was started on a diet and was able to tolerated. Gastroenterology was consulted due to concerns about autoimmune pancreatitis. He had panel of autoimmune pancreatitis drawn. His symptoms improved and he was discharged home on 12/02/2022. He is to follow-up with his primary care doctor and follow-up with gastroenterology on outpatient basis. Patient seen and examined prior to discharge. He felt much better and abdominal pain had improved. Labs and vitals reviewed. Home meds reviewed and reconciled. I spoke to gear hobber and he recommended patient going home on PO prednisone 40mg daily x 30 days until he follows up with gastroenterology on outpatient basis. Physical Exam Const alert, oriented x3 and no apparent distress General Appearance: cooperative and comfortable Orientation / Consciousness: awake Exam Limitations: no limitations HEENT normocephalic, head/scalp atraumatic, hearing grossly normal bilaterally and moist oral mucous membranes Mouth: oral and palatal mucosa normal Eyes PERRL and EOMs intact bilaterally Neck no lymphadenopathy and supple General: trachea midline Lymph Lymphatic: no lymphadenopathy noted Resp normal respiratory effort, normal air movement and clear to auscultation bilaterally Cardio regular rate, regular rhythm, S1 normal heart sound, S2 normal heart sound and no murmurs GI normal to inspection, nondistended, normoactive bowel sounds GI Narrative: abdomen soft, nontender, no organomegaly Extremity normal capillary refill, no clubbing, cyanosis or edema and no calf tenderness Skin General Skin Exam: no breakdown Neuro oriented x3, CN's II-XII intact bilaterally, moves all extremities, no focal motor deficits and no sensory deficits noted Sensorium / Orientation: awake and alert Motor Exam: strength 5/5 throughout Psych thought process normal Weight / BMI Weight Weight: 190 lb 4.143 oz Body Mass Index (BMI) 27.3 ABG / Lab / Microbiology Data Result Diagrams: 12/02/22 06:00 12/02/22 06:00 Laboratory: Laboratory Results - last 24 hr 12/01/22 05:57: POC Glucose 154 H 12/01/22 17:18: POC Glucose 236 H 12/01/22 20:13: POC Glucose 241 H 12/02/22 06:00: WBC 11.9 H, RBC 3.71 L, Hgb 11.9 L, Hct 34.1 L, MCV 91.9, MCH 32.1 H, MCHC 34.9, RDW Std Deviation 41.1, RDW Coeff of Armin 12.3, Plt Count 154, MPV 9.4, Immature Gran % (Auto) 0.300, Neut % (Auto) 61.1, Lymph % (Auto) 31.5, [place] % (Auto) 6.7, Eos % (Auto) 0.2, Baso % (Auto) 0.2, Absolute Neuts (auto) 7.3, Absolute Lymphs (auto) 3.76, Nucleated RBC % 0 12/02/22 06:00: Sodium 139, Potassium 3.4 L, Chloride 107, Carbon Dioxide 25.0, Anion Gap 7, BUN 8, Creatinine 0.87, Estim Creat Clear Calc 96.73, Est GFR (MDRD) Af Amer 116, Est GFR (MDRD) Non-Af 96, BUN/Creatinine Ratio 9.2 L, Glucose 127 H, Calcium 8.4 L, Total Bilirubin 0.70, AST 11 L, ALT 19, Alkaline Phosphatase 52, Total Protein 6.9, Albumin 3.4, Globulin 3.5, Albumin/Globulin Ratio 1.0 12/02/22 06:00: ESR 19 12/02/22 06:00: C-React Prot Ext Range 12.50 H, Amylase 63, Lipase 482 H 12/02/22 06:33: POC Glucose 137 H 12/02/22 10:43: POC Glucose 210 H D/C Instructions Discharge Diet: Low fat / Low cholesterol Discharge Activity: Return to Normal Activity Weight Bearing Status: Weight bearing as tolerated Call your doctor if you observe: Fever of 101 or Higher, Chest pain, Increased palpitations (irregular heartbeat), Calf discomfort and Uncontrolled pain Meaningful Use Info Meaningful Use Diagnoses (Choose all that apply): None applicable Discharge Plan Admission Admit Date/Time: 11/29/22 02:46 Primary Reason for Your Visit: acute pancreatitis Attending Provider: Veena Tidwell Primary Care Provider: Lobito Maldonado Consulting Providers: Mayelin Pedraza Instructions Patient Instructions: ED Pancreatitis Discharge Orders/Prescriptions Prescriptions: New oxycodone 5 mg tablet 5 mg PO Q6H PRN (Reason: pain) 3 Days Qty: 12 0RF prednisone 20 mg tablet 40 mg PO DAILY 30 Days Qty: 60 0RF Continued amitriptyline 25 mg tablet 25 mg PO QHS gabapentin 300 mg capsule 300 mg PO BID levetiracetam 500 mg tablet 500 mg PO BID Qty: 60 6RF levocarnitine 330 mg tablet 330 mg PO BID Qty: 60 5RF Rx Instructions: must administer with a meal/food nitroglycerin 0.4 MG tablet 0.4 mg sublingual Q5M PRN (Reason: Chest Pain) cholecalciferol (vitamin D3) 5,000 capsule 1 cap PO DAILY insulin glargine [Lantus U-100 Insulin] 100 UNIT/ML solution 10 unit SQ QHS latanoprost 0.005 % drops 1 drp EACH EYE QHS tamsulosin 0.4 mg Capsule 0.4 mg PO QHS pantoprazole 40 mg Tablet,Delayed Release (Dr/Ec) 40 mg PO DAILY pravastatin 40 mg Tablet 60 mg PO QHS magnesium oxide 400 mg (241.3 mg magnesium) tablet 400 mg PO BID metformin 500 MG tablet 500 mg PO BID Qty: 0 0RF Hold Instructions: Hold for 3 days aspirin 81 mg Tablet,Delayed Release (Dr/Ec) 81 mg PO DAILY losartan 25 mg tablet 25 mg PO DAILY fluticasone propionate [Flonase Allergy Relief] 50 mcg/actuation [place],Suspension 2 spray INTRANASAL DAILY escitalopram oxalate 10 mg tablet 10 mg PO DAILY loratadine 10 MG capsule 10 mg PO DAILY omega-3 fatty acids-fish oil 684-1,200 mg Capsule,Delayed Release(Dr/Ec) 2 cap PO DAILY naproxen 500 mg tablet 500 mg PO BID PRN (Reason: Pain) simethicone [Gas Relief 80 (simethicone)] 80 mg Tablet,Chewable 80 mg PO DAILY PRN (Reason: gas relief) thiamine HCl (vitamin B1) [Vitamin B-1] 100 mg Tablet 100 mg PO BREAKFAST Qty: 30 0RF folic acid 1 mg Tablet 1 mg PO BREAKFAST Qty: 30 0RF Creon 12,000-38,000 -60,000 unit capsule,delayed release(DR/EC) 1 cap PO .TIDAC 30 Days Qty: 90 2RF Rx Instructions: administer with meals and/or snacks hydrochlorothiazide 25 mg tablet 25 mg PO DAILY Qty: 30 11RF Hold Instructions: Hold for 3 days and start with 12.5 mg, half tablet daily. amlodipine 10 mg tablet 10 mg PO DAILY Qty: 90 3RF ursodiol 250 mg tablet 250 mg PO BID Qty: 180 1RF Referrals / Follow Up: Lobito Maldonado MD [Primary Care Provider] - 12/09/22 10:00 am Disposition Disposition (needs filled in before D/C Order can be placed): Home, Self Care Charges/Coding Visit Charges Inpatient E&M: 63159 Disch Hosp >30min
[2022-12-02 15:04] VITALS: BP 138/88; PULSE 93; RESP 16; TEMP 36.8; O2SAT 98
--- NOTE | 2022-12-02 16:56 | NURSING ---
phone call made to as requested by dr. hicks informing him of new script for prednisone and f/u with Dr. Santamaria
== END 2022-12-02 15:50 | disposition home or self-care (01) | DRG 439 ==
LOC: ED 11-29 02:30 → MS3 11-29 03:00
PROVIDERS: Internal Medicine Gastroenterology; Admitting Provider Family Medicine; Emergency Provider Emergency Medicine; PCP Internal Medicine; Visit Provider Student in an Organized Health Care Education/Training Program
DX: K85.90 Acute pancreatitis without necrosis or infection, unspecified (principal); K56.7 Ileus, unspecified; K31.84 Gastroparesis; E11.40 Type 2 diabetes mellitus with diabetic neuropathy, unspecified; G40.909 Epilepsy, unspecified, not intractable, without status epilepticus; Z79.4 Long term (current) use of insulin; E11.65 Type 2 diabetes mellitus with hyperglycemia; K86.0 Alcohol-induced chronic pancreatitis; F10.21 Alcohol dependence, in remission; E78.5 Hyperlipidemia, unspecified; I10 Essential (primary) hypertension; K21.9 Gastro-esophageal reflux disease without esophagitis; F41.9 Anxiety disorder, unspecified; Y90.0 Blood alcohol level of less than 20 mg/100 ml; G89.4 Chronic pain syndrome; N40.0 Benign prostatic hyperplasia without lower urinary tract symptoms; F32.A Depression, unspecified; Z79.82 Long term (current) use of aspirin; Z79.84 Long term (current) use of oral hypoglycemic drugs; Z79.899 Other long term (current) drug therapy; Z87.891 Personal history of nicotine dependence; Z86.73 Personal history of transient ischemic attack (TIA), and cerebral infarction without residual deficits
CPT/HCPCS: 36415; 74177; 80048; 80053; 82077; 82150; 82962; 83690; 83735; 84100; 85025; 85652; 86140; 94668; 97802; 99252; 99285; J7030; Q9967; A4216; G0463; J2405

== ENCOUNTER 2022-12-13 23:06 | Emergency (ER) | payer MEDICARE, MEDICAID, SELFPAY ==
[2022-12-13 23:07] VITALS: BP 145/85; PULSE 128; RESP 16; TEMP 37.1; O2SAT 96; BMI 26.4
[2022-12-13 23:09] VITALS: BP 145/85; PULSE 123; RESP 16; TEMP 37.1; O2SAT 98; O2SAT 99
--- NOTE | 2022-12-13 23:20 | EDS_ITS ---
HPI History of Present Illness Chief Complaint: Chest Pain Informant: patient Narrative Narrative: Patient states he ate chili tonight, and about 1.5-2 hours later he started getting epigastric pain, spread to his entire upper abdomen, some nausea but no vomiting, has been going on for about 3 hours now. Prior to calling EMS, states he started having rapid palpitations and felt lightheaded, he called EMS and within 15 or 20 minutes they arrived and his racing heartbeat and lightheadedness resolved. He had no syncope or chest pain. He still has the upper abdominal pain states it feels like pancreatitis. He has a history of that from alcohol use. States he does not drink heavily anymore, he is quitting altogether, his last beer was 3 days ago. He has had prior cholecystectomy, no other abdominal surgeries. He denies any other recent illness prior to the symptoms starting tonight. [facility] Medical History Alcohol abuse Anxiety and depression Cancer Constipation Diabetes Essential (primary) hypertension Family history of cerebral aneurysm Former tobacco use Gastric ulcer GERD (gastroesophageal reflux disease) GI bleed Glaucoma Hyperlipidemia Myocardial infarct Neck pain Pancreatitis Polyneuropathy PSA elevation PTSD (post-traumatic stress disorder) Seizure disorder Stroke/cerebrovascular accident TIA (transient ischemic attack) Vision loss of left eye Vision loss of right eye Home Medications nitroglycerin 0.4 mg sublingual tablet 0.4 mg sublingual Q5M PRN Chest Pain 07/15/13 [History Last Taken 08/22/15] amitriptyline 25 mg tablet 25 mg PO QHS depression 07/03/18 [History Last Taken 11/27/22] cholecalciferol (vitamin D3) 125 mcg (5,000 unit) capsule 1 cap PO DAILY supplement 11/09/18 [History Last Taken 11/28/22] hydrochlorothiazide 25 mg tablet 25 mg PO DAILY blood pressure/heart #30 tabs 06/05/20 [Rx Last Taken 11/28/22] gabapentin 300 mg capsule 300 mg PO BID nerve pain 10/06/20 [History Last Taken 11/28/22] insulin glargine 100 unit/mL subcutaneous solution (Lantus U-100 Insulin) 10 unit SQ QHS diabetes 12/30/20 [History Last Taken 11/27/22] latanoprost 0.005 % eye drops 1 drp EACH EYE QHS glaucoma 12/07/21 [History Last Taken 11/27/22] magnesium oxide 400 mg (241.3 mg magnesium) tablet 400 mg PO BID supplement 02/27/22 [History Last Taken 11/28/22] pantoprazole 40 mg tablet,delayed release 40 mg PO DAILY gerd 02/27/22 [History Last Taken 11/28/22] pravastatin 40 mg tablet 60 mg PO QHS cholesterol 02/27/22 [History Last Taken 11/27/22] tamsulosin 0.4 mg capsule 0.4 mg PO QHS prostate 02/27/22 [History Last Taken 11/27/22] metformin 500 mg tablet 500 mg PO BID diabetes #0 tabs 03/04/22 [Rx Last Taken 11/28/22] aspirin 81 mg tablet,delayed release 81 mg PO DAILY heart health 07/04/22 [History Last Taken 11/28/22] escitalopram oxalate 10 mg tablet 10 mg PO DAILY depression 07/04/22 [History Last Taken 11/28/22] fluticasone propionate 50 mcg/actuation nasal spray,suspension (Flonase Allergy Relief) 2 spray intranasal DAILY allergies 07/04/22 [History Last Taken 11/28/22] loratadine 10 mg capsule 10 mg PO DAILY allergies 07/04/22 [History Last Taken 11/28/22] losartan 25 mg tablet 25 mg PO DAILY blood pressure 07/04/22 [History Last Taken 11/28/22] omega-3 fatty acids-fish oil 684 mg-1,200 mg capsule,delayed release 2 cap PO DAILY supplement 07/04/22 [History Last Taken 11/28/22] amlodipine 10 mg tablet 10 mg PO DAILY blood pressure #90 tabs 07/27/22 [Rx Last Taken 11/28/22] levetiracetam 500 mg tablet 500 mg PO BID seizures #60 tabs 08/08/22 [Rx Last Taken 11/28/22] naproxen 500 mg tablet 500 mg PO BID PRN Pain 09/06/22 [History Last Taken Unknown] simethicone 80 mg chewable tablet (Gas Relief 80 (simethicone)) 80 mg PO DAILY PRN gas relief 09/06/22 [History Last Taken Unknown] folic acid 1 mg tablet 1 mg PO BREAKFAST #30 tabs 12/15/22 [Rx Last Taken 11/28/22] nijvwk-ghcovdyy-alyefra 12,000-38,000-60,000 unit capsule,delayed rel (Creon) 1 cap PO .TIDAC 30 days #90 caps 09/08/22 [Rx Last Taken 11/28/22] thiamine HCl (vitamin B1) 100 mg tablet (Vitamin B-1) 100 mg PO BREAKFAST #30 tabs 09/08/22 [Rx Last Taken 11/28/22] ursodiol 250 mg tablet 250 mg PO BID liver fibrosis #180 tabs 09/21/22 [Rx Last Taken 11/28/22] levocarnitine 330 mg tablet 330 mg PO BID #60 tabs 09/28/22 [Rx Last Taken 11/28/22] oxycodone 5 mg tablet 5 mg PO Q6H PRN pain 3 days #12 tabs 12/02/22 [Rx Last Taken Unknown] prednisone 20 mg tablet 40 mg PO DAILY 30 days #60 tabs 12/02/22 [Rx Last Taken Unknown] ondansetron 4 mg disintegrating tablet 8 mg PO Q8H PRN PRN Nausea #14 tabs 12/14/22 [Rx Last Taken Unknown] Allergy/AdvReac Type Severity Reaction Status Date / Time lisinopril Allergy Angioedema Verified 11/09/22 16:17 cyclobenzaprine AdvReac Severe Skin Verified 11/09/22 16:17 crawling Iodinated Contrast Media AdvReac Intermediate ITCHY FEET Verified 11/09/22 16:17 [iodine contrast] hydrocodone bitartrate AdvReac Itching Verified 11/09/22 16:17 [From Vicodin] hydromorphone [From Dilaudid] AdvReac Itching Verified 11/09/22 16:17 morphine AdvReac Itching Verified 11/09/22 16:17 tramadol AdvReac Itching Verified 11/09/22 16:17 Family History (Updated 11/29/22 @ 03:[address] Mayelin Pedraza MD) Mother Heart disease Sister Cerebral aneurysm Father Diabetes Kidney disease Anxiety and depression Surgical History History of cholecystectomy (12/2013) History of left heart catheterization (10/31/11) Social History household members: none Smoking Status: Former smoker Tobacco: How many years used: 7 Electronic Cigarette Use: not used alcohol intake: former details: 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 substance use type: does not use caffeine: No robbin/lutheran: Gnosticism seatbelt use: always ROS ROS ED Constitutional Constitutional ED: Denies chills or fever(s) Eyes Eyes: Denies change in vision or diplopia ENT ENT ED: Denies rhinorrhea or sore throat Cardiovascular Cardiovascular: Reports lightheadedness, palpitations and racing heartbeat; Denies chest pain Respiratory/Chest Respiratory/Chest: Denies cough or dyspnea Gastrointestinal Gastrointestinal: Reports abdominal pain and nausea; Denies diarrhea or vomiting Genitourinary Genitourinary ED: Denies dysuria or hematuria Musculoskeletal Musculoskeletal: Denies back pain or neck pain Integumentary Denies abscess or rash Neurologic Neurologic: Denies headache(s), paresthesias or weakness Psychiatric Psychiatric: Denies anxiety or suicidal thoughts EXAM Physical Exam Const Vital Signs: 12/13/22 23:07 12/13/22 23:09 12/13/22 23:09 Temperature 98.7 F 98.7 F Temperature Source Temporal Temporal Pulse Rate 128 H 123 H Respiratory Rate 16 16 Blood Pressure 145/85 H 145/85 H Blood Pressure Mean 105 105 Pulse Ox 96 99 98 Oxygen Delivery Method Room Air Room Air Room Air Positive well nourished and well developed General Appearance ED: well developed and NAD HEENT Reports moist mucous membranes normocephalic and atraumatic Eyes PERRL and EOMs intact bilaterally Neck full ROM and supple Resp normal respiratory effort and clear to auscultation bilaterally Cardio regular rate, regular rhythm and no murmurs Rate: tachycardic GI non-distended GI Narrative: Diffuse upper abdominal tenderness no guarding or rebound, hyperactive bowel sounds. Palpation: soft Back/Spine no CVA tenderness General Back: other FROM Extremity normal to inspection General Extremety ED: Negative for edema, pulses abnormal or tenderness General Extremity: Negative for edema or pulses abnormal Neuro oriented x3, CN's II-XII intact bilaterally and no sensory deficits noted Sensorium / Orientation: awake and alert Motor Exam: strength 5/5 throughout Psych mental status grossly normal Skin no rashes or lesions noted and no wounds MDM MDM MDM Narrative Medical decision making narrative: Labs obtained, he has hyperglycemia, mild AGA/dehydration with prerenal azotemia, mildly suppressed bicarb with an elevated anion gap, and a leukocytosis. He has no thoracic symptoms or urinary symptoms. We gave him fluids, Zofran, and fentanyl for the pain, and given the leukocytosis I obtained a CT of the abdomen/pelvis. I reviewed the images. My interpretation of the CT agrees with that of the radiologist. It is basically negative for any acute including lower lobe pneumonias. Because of his anion gap and diabetes I added on an acetone level although he thinks he is a type II diabetic I saw that he is on insulin, that is negative. His lactate is a little elevated. He was given fluids but did not want anymore and is feeling a lot better and willing to go home. I rechecked his blood sugar, it is 370, so he is amenable to getting a dose of insulin before going home, we waited for that because he took some prior to coming. I do not have an obvious etiology for his leukocytosis but at this time I see nothing that antibiotics are indicated for. His lipase is just barely elevated, and is not consistent with acute pancreatitis. For that I would recommend full liquid diet for the next 48 hours, given a prescription for Zofran, advised to follow-up is comfortable with that plan. History & Record Review Additional record(s) reviewed:: Prior outpatient record (Cardiology visit 01/03/2022, no history of dysrhythmias or symptoms of them at that visit.) Lab Data Attestation: I reviewed the patient's lab results. Labs: Laboratory Results - last 24 hr 12/13/22 12/13/22 12/14/22 22:57 22:57 02:35 WBC 20.5 H RBC 4.50 L Hgb 14.3 Hct 41.2 MCV 91.6 MCH 31.8 MCHC 34.7 RDW Std Deviation 40.3 RDW Coeff of Armin 11.9 Plt Count 229 MPV 10.3 Immature Gran % (Auto) 1.100 H Neut % (Auto) 85.9 H Lymph % (Auto) 10.3 L Bucks % (Auto) 2.4 Eos % (Auto) 0.0 Baso % (Auto) 0.3 Absolute Neuts (auto) 17.6 H Absolute Lymphs (auto) 2.12 Nucleated RBC % 0 Sodium 133 L Potassium 3.7 Chloride 97 L Carbon Dioxide 19.0 L Anion Gap 17 H BUN 19 H Creatinine 1.34 H Estim Creat Clear Calc 62.80 Est GFR (MDRD) Af Amer 71 Est GFR (MDRD) Non-Af 58 L BUN/Creatinine Ratio 14.2 Glucose 426 H Lactic Acid Calcium 9.8 Total Bilirubin 0.40 AST 8 L ALT 21 Alkaline Phosphatase 89 Troponin I High Sens 8 Total Protein 8.1 Albumin 4.0 Globulin 4.1 Albumin/Globulin Ratio 1.0 Lipase 458 H Acetone Level NEGATIVE 12/14/22 02:35 WBC RBC Hgb Hct MCV MCH MCHC RDW Std Deviation RDW Coeff of Armin Plt Count MPV Immature Gran % (Auto) Neut % (Auto) Lymph % (Auto) Bucks % (Auto) Eos % (Auto) Baso % (Auto) Absolute Neuts (auto) Absolute Lymphs (auto) Nucleated RBC % Sodium Potassium Chloride Carbon Dioxide Anion Gap BUN Creatinine Estim Creat Clear Calc Est GFR (MDRD) Af Amer Est GFR (MDRD) Non-Af BUN/Creatinine Ratio Glucose Lactic Acid 2.3 H* Calcium Total Bilirubin AST ALT Alkaline Phosphatase Troponin I High Sens Total Protein Albumin Globulin Albumin/Globulin Ratio Lipase Acetone Level Radiography Diagnostic Testing: Clinical Impression(s) from Imaging Studies Abdomen/Pelvis CT 12/14/22 00:37 IMPRESSION: 1. No evidence of acute intra-abdominal abnormality. 2. Colonic diverticulosis with no evidence of diverticulitis. 3. Other nonurgent findings within body of report. Electronically Signed: Americo Matson MD at 1:42 EDT , Rhythm Strip Rhythm Strip: Sinus Tach Rate: 120 Ectopy: None EKG Initial EKG: Attestation: I personally reviewed and interpreted this EKG as follows: Interpretation: No Acute Injury Pattern and Sinus Tachycardia Prior EKG tracings: available for review Prior: Unchanged Discharge Plan Triage Chief Complaint: Chest Pain ED Provider: Saurabh Cherry Dx/Rx/DC Orders Clinical Impression: Elevated lipase, Mild dehydration, Hyperglycemia due to type 2 diabetes mellitus, Acute upper abdominal pain Instructions: Abdominal Pain, ED Full Liquid Diet Prescriptions: New ondansetron [ondansetron] 4 mg tablet,disintegrating 8 mg PO Q8H PRN PRN (Reason: Nausea) Qty: 14 0RF No Action amitriptyline 25 mg tablet 25 mg PO QHS gabapentin 300 mg capsule 300 mg PO BID levetiracetam 500 mg tablet 500 mg PO BID Qty: 60 6RF levocarnitine 330 mg tablet 330 mg PO BID Qty: 60 5RF Rx Instructions: must administer with a meal/food nitroglycerin 0.4 MG tablet 0.4 mg sublingual Q5M PRN (Reason: Chest Pain) cholecalciferol (vitamin D3) 5,000 capsule 1 cap PO DAILY insulin glargine [Lantus U-100 Insulin] 100 UNIT/ML solution 10 unit SQ QHS latanoprost 0.005 % drops 1 drp EACH EYE QHS tamsulosin 0.4 mg Capsule 0.4 mg PO QHS pantoprazole 40 mg Tablet,Delayed Release (Dr/Ec) 40 mg PO DAILY pravastatin 40 mg Tablet 60 mg PO QHS magnesium oxide 400 mg (241.3 mg magnesium) tablet 400 mg PO BID metformin 500 MG tablet 500 mg PO BID Qty: 0 0RF Hold Instructions: Hold for 3 days aspirin 81 mg Tablet,Delayed Release (Dr/Ec) 81 mg PO DAILY losartan 25 mg tablet 25 mg PO DAILY fluticasone propionate [Flonase Allergy Relief] 50 mcg/actuation [place],Suspension 2 spray INTRANASAL DAILY escitalopram oxalate 10 mg tablet 10 mg PO DAILY loratadine 10 MG capsule 10 mg PO DAILY omega-3 fatty acids-fish oil 684-1,200 mg Capsule,Delayed Release(Dr/Ec) 2 cap PO DAILY naproxen 500 mg tablet 500 mg PO BID PRN (Reason: Pain) simethicone [Gas Relief 80 (simethicone)] 80 mg Tablet,Chewable 80 mg PO DAILY PRN (Reason: gas relief) thiamine HCl (vitamin B1) [Vitamin B-1] 100 mg Tablet 100 mg PO BREAKFAST Qty: 30 0RF folic acid 1 mg Tablet 1 mg PO BREAKFAST Qty: 30 0RF Creon 12,000-38,000 -60,000 unit capsule,delayed release(DR/EC) 1 cap PO .TIDAC 30 Days Qty: 90 2RF Rx Instructions: administer with meals and/or snacks oxycodone 5 mg tablet 5 mg PO Q6H PRN (Reason: pain) 3 Days Qty: 12 0RF prednisone 20 mg tablet 40 mg PO DAILY 30 Days Qty: 60 0RF hydrochlorothiazide 25 mg tablet 25 mg PO DAILY Qty: 30 11RF Hold Instructions: Hold for 3 days and start with 12.5 mg, half tablet daily. amlodipine 10 mg tablet 10 mg PO DAILY Qty: 90 3RF ursodiol 250 mg tablet 250 mg PO BID Qty: 180 1RF Primary Care Provider: Lobito Maldonado Referrals: Lobito Maldonado MD [Primary Care Provider] - As soon as possible Disposition Disposition: Home, Self Care
[2022-12-13 23:31] LABS: Absolute Lymphocyte Count 2.12 X10^3/uL (0.83-4.51); Absolute Neutrophil Count 17.6 X10^3/uL (2.0-7.7); Basophil# 0.07 X10^3/uL; Basophil% 0.3 % (0-1); Hematocrit 41.2 % (40-54); Hemoglobin 14.3 g/dL (13.0-16.5); Lymphocyte # 2.12 X10^3/ul (0.83-4.51); Lymphocyte % 10.3 % (19-41); Mean Corp Hgb Conc 34.7 g/dL (32-36); Mean Corpuscular Hgb 31.8 pg (27.0-32.0); Mean Corpuscular Volume 91.6 fL (80-94); Mean Platelet Vol. 10.3 fl (6.2-12.0); Monocyte# 0.49 X10^3/uL; Monocyte% 2.4 % (0-10); NRBC Flagged by Analyzer 0 % (0-5); Neutrophil # 17.59 X10^3/uL (2.7-7.7); Neutrophil % 85.9 % (47-70); Platelet Count 229 K/mm3 (150-450); RBC Distribution Width CV 11.9 % (11.6-14.6); RBC Distribution Width SD 40.3 fl (35.1-43.9); White Blood Count 20.5 K/mm3 (4.4-11.0)
[2022-12-13] MEDS: Ondansetron 4 MG/2 ML Vial IV (23:36)
[2022-12-13] MEDS: fentaNYL 100 MCG/2 ML Ampul 50 MCG IV (23:36)
[2022-12-13] MEDS: 0.9% Normal Saline 1,000 ML 1000 ML IV (23:37)
[2022-12-13 23:48] LABS: AST(SGOT) 8 U/L (15-37); Alanine Aminotransfer ALT/SGPT 21 U/L (16-61); Alkaline Phosphatase 89 U/L (45-117); Anion Gap 17 (5-15); BUN 19 mg/dL (7-18); BUN/Creat Ratio 14.2 RATIO (10-20); Calcium,Total 9.8 mg/dL (8.5-10.1); Chloride 97 mmol/L (98-107); Creatinine, Serum 1.34 mg/dL (0.70-1.30); EST Glomerular Filtration Rate 58 mL/min (>60); Est Glom Filt Rate - Afr Amer 71 mL/min (>60); Globulin 4.1 g/dL (2.2-4.2); Glucose 426 mg/dL (74-106); Lipase 458 U/L (73-393); Potassium 3.7 mmol/L (3.5-5.1); Protein, Total 8.1 g/dL (6.4-8.2); Sodium Level 133 mmol/L (136-145); Troponin-I HS 8 pg/mL (3.0-78.0)
--- NOTE | 2022-12-14 00:37 | CT_ITS ---
INDICATION: upper abd pain, nausea and dizziness, elevated white blood cell count EXAMINATION: CT ABDOMEN AND PELVIS WITHOUT CONTRAST TECHNIQUE: Helically acquired images were obtained of the abdomen and pelvis without IV contrast. 2-D reconstructions reviewed. A radiation dose optimization technique was used for this scan. IV Contrast dosage and agent: None. Oral contrast: None. COMPARISON: Numerous prior CT abdomen and pelvis exams, most recent from 11/30/2022. FINDINGS: LOWER CHEST: No acute findings within the imaged lung bases. Heart size within normal limits. LIVER: Mild focal fat within left lobe adjacent to falciform ligament. No discrete mass. GALLBLADDER AND BILIARY TREE: Status post cholecystectomy. No significant biliary ductal dilation. PANCREAS: No discrete mass or peripancreatic edema. SPLEEN: Normal size without discrete mass. ADRENAL GLANDS: Unremarkable. KIDNEYS AND URETERS: Normal renal size and position. No hydronephrosis. Small low-attenuation left renal cyst again noted. No concerning renal lesion requiring additional follow-up at this time. No tract stones identified. PERITONEUM: No peritoneal free air or significant free fluid. No other fluid collection. RETROPERITONEUM: No retroperitoneal mass or pathologic fluid collection. BOWEL: Normal appendix medial to cecum within right lower quadrant. No abnormal stomach or bowel distension. Scattered colonic diverticula. No focal inflammatory change. LYMPH NODES: No enlarged mesenteric or retroperitoneal lymph nodes. VESSELS: Atherosclerotic calcifications with no abdominal aortic aneurysm. URINARY BLADDER: Unremarkable as visualized. REPRODUCTIVE ORGANS: No pelvic masses. ABDOMINAL WALL: No acute findings or significant hernia defect. BONES: Intact with no suspicious osseous lesion. CT/Abdomen/Pelvis without Cont IMPRESSION: 1. No evidence of acute intra-abdominal abnormality. 2. Colonic diverticulosis with no evidence of diverticulitis. 3. Other nonurgent findings within body of report. Electronically Signed: Americo Matson MD at 1:42 EDT ,
[2022-12-14] MEDS: fentaNYL 100 MCG/2 ML Ampul 50 MCG IV (01:00)
[2022-12-14 03:08] LABS: Lactic Acid 2.3 mmol/L (0.4-1.9)
[2022-12-14 03:41] LABS: Bedside Glucose 370 mg/dL (74-106)
[2022-12-14] MEDS: Insulin Lispro 100 UNIT/ML INSULN.PEN 10 UNIT SC (03:57)
[2022-12-14 03:59] VITALS: BP 138/74; PULSE 90; RESP 17; TEMP 37.1; O2SAT 98; O2SAT 99
[2022-12-14 06:41] LABS: Reflex Lactate? Y
== END 2022-12-14 04:02 | disposition home or self-care (01) ==
PROVIDERS: Emergency Provider Emergency Medicine; PCP Internal Medicine; Visit Provider Emergency Medicine
DX: E86.0 Dehydration (principal); N17.9 Acute kidney failure, unspecified; E11.65 Type 2 diabetes mellitus with hyperglycemia; R10.10 Upper abdominal pain, unspecified; I10 Essential (primary) hypertension; Z87.891 Personal history of nicotine dependence
CPT/HCPCS: 74176; 80053; 82009; 82962; 83605; 83690; 84484; 85025; 93005; 96361; 96374; 96375; 96376; 99285; J7030; J2405

== ENCOUNTER 2022-12-26 05:45 | Emergency (ER) | payer MEDICARE, MEDICAID, SELFPAY ==
[2022-12-26 05:46] VITALS: BP 144/91; PULSE 114; RESP 18; TEMP 35.8; O2SAT 98; BMI 26.5
[2022-12-26 06:44] LABS: Absolute Lymphocyte Count 5.74 X10^3/uL (0.83-4.51); Absolute Neutrophil Count 6.2 X10^3/uL (2.0-7.7); Basophil% 0.8 % (0-1); Eosinophil# 0.12 X10^3/uL; Eosinophils% 0.9 % (0-5); Hematocrit 40.6 % (40-54); Hemoglobin 14.3 g/dL (13.0-16.5); Lymphocyte # 5.74 X10^3/ul (0.83-4.51); Lymphocyte % 44.2 % (19-41); Mean Corp Hgb Conc 35.2 g/dL (32-36); Mean Corpuscular Hgb 32.2 pg (27.0-32.0); Mean Corpuscular Volume 91.4 fL (80-94); Monocyte# 0.68 X10^3/uL; Monocyte% 5.2 % (0-10); NRBC Flagged by Analyzer 0 % (0-5); Neutrophil # 6.22 X10^3/uL (2.7-7.7); Neutrophil % 47.8 % (47-70); POSITIVE DIFFERENTIAL YES; POSITIVE MORPHOLOGY YES; Platelet Count 219 K/mm3 (150-450); RBC Distribution Width CV 12.1 % (11.6-14.6); RBC Distribution Width SD 40.6 fl (35.1-43.9); Red Blood Count 4.44 M/mm3 (4.6-6.2)
[2022-12-26] MEDS: Ondansetron 4 MG/2 ML Vial IV (06:48)
[2022-12-26] MEDS: HYDROmorphone 1 MG/ML Syringe IV (06:48)
[2022-12-26 06:57] LABS: Differential Indicated SCAN CRITERIA MET
[2022-12-26 06:58] LABS: AST(SGOT) 21 U/L (15-37); Alanine Aminotransfer ALT/SGPT 25 U/L (16-61); Albumin, Serum 3.7 g/dL (3.2-5.0); Alkaline Phosphatase 67 U/L (45-117); Amylase 57 U/L (25-115); Anion Gap 11 (5-15); BUN 16 mg/dL (7-18); BUN/Creat Ratio 14.2 RATIO (10-20); Calcium,Total 9.7 mg/dL (8.5-10.1); Chloride 100 mmol/L (98-107); Creatinine, Serum 1.13 mg/dL (0.70-1.30); EST Glomerular Filtration Rate 71 mL/min (>60); Est Glom Filt Rate - Afr Amer 86 mL/min (>60); Estimated Creatinine Clearance 74.47 ml/min; Globulin 3.6 g/dL (2.2-4.2); Glucose 310 mg/dL (74-106); Lipase 645 U/L (73-393); Potassium 3.4 mmol/L (3.5-5.1); Protein, Total 7.3 g/dL (6.4-8.2); Sodium Level 131 mmol/L (136-145)
[2022-12-26 08:56] VITALS: BP 120/83; PULSE 80; RESP 16; O2SAT 97
--- NOTE | 2022-12-26 09:19 | ED.VIS.GI ---
HPI HPI - GI History of Present Illness Chief Complaint: Abd Pain Informant: patient Abdominal Pain/Flank Pain Onset: Today and Hours Context: Gradual Onset Timing: Continuous Quality: Aching Location: Epigastric and RUQ Current Severity: Mild Maximum Severity: Mild Worsened by: Nothing Nausea/Vomiting/Emesis GI Symptom: Positive for Nausea; Negative for Vomiting Onset: Today Severity: Mild Diarrhea/Melena/Hematochezia GI Symptom: Negative for Diarrhea, Melena or Hematochezia Associated Symptoms Associated Symptoms: Negative for Dysuria, Frequency, Hematuria or Urgency Narrative Narrative: 57-year-old male history of seizure disorder and pancreatitis. Prior cholecystectomy. Also history of diabetes and prostate cancer. States he had a seizure and then when he came to from the seizure he realized he was started to have abdominal pain. He has had episodes like this before secondary to his pancreatitis. He denies any recent alcohol use. Said the pain began around 4:00 AM. Associated nausea no vomiting or diarrhea. No fever or dysuria. Prior similar symptoms: Yes Recent Illness/Hospitalization: No PFSH PFSH Medical History Alcohol abuse Anxiety and depression Cancer Constipation Diabetes Essential (primary) hypertension Family history of cerebral aneurysm Former tobacco use Gastric ulcer GERD (gastroesophageal reflux disease) GI bleed Glaucoma Hyperlipidemia Liver fibrosis Myocardial infarct Neck pain Polyneuropathy PSA elevation PTSD (post-traumatic stress disorder) Seizure disorder Stroke/cerebrovascular accident TIA (transient ischemic attack) Vision loss of left eye Vision loss of right eye Home Medications nitroglycerin 0.4 mg sublingual tablet 0.4 mg sublingual Q5M PRN Chest Pain 07/15/13 [History Last Taken 08/22/15] amitriptyline 25 mg tablet 25 mg PO QHS depression 07/03/18 [History Last Taken 11/27/22] cholecalciferol (vitamin D3) 125 mcg (5,000 unit) capsule 1 cap PO DAILY supplement 11/09/18 [History Last Taken 11/28/22] hydrochlorothiazide 25 mg tablet 25 mg PO DAILY blood pressure/heart #30 tabs 06/05/20 [Rx Last Taken 11/28/22] gabapentin 300 mg capsule 300 mg PO BID nerve pain 10/06/20 [History Last Taken 11/28/22] insulin glargine 100 unit/mL subcutaneous solution (Lantus U-100 Insulin) 10 unit SQ QHS diabetes 12/30/20 [History Last Taken 11/27/22] latanoprost 0.005 % eye drops 1 drp EACH EYE QHS glaucoma 12/07/21 [History Last Taken 11/27/22] magnesium oxide 400 mg (241.3 mg magnesium) tablet 400 mg PO BID supplement 02/27/22 [History Last Taken 11/28/22] pantoprazole 40 mg tablet,delayed release 40 mg PO DAILY gerd 02/27/22 [History Last Taken 11/28/22] pravastatin 40 mg tablet 60 mg PO QHS cholesterol 02/27/22 [History Last Taken 11/27/22] tamsulosin 0.4 mg capsule 0.4 mg PO QHS prostate 02/27/22 [History Last Taken 11/27/22] metformin 500 mg tablet 500 mg PO BID diabetes #0 tabs 03/04/22 [Rx Last Taken 11/28/22] aspirin 81 mg tablet,delayed release 81 mg PO DAILY heart health 07/04/22 [History Last Taken 11/28/22] escitalopram oxalate 10 mg tablet 10 mg PO DAILY depression 07/04/22 [History Last Taken 11/28/22] fluticasone propionate 50 mcg/actuation nasal spray,suspension (Flonase Allergy Relief) 2 spray intranasal DAILY allergies 07/04/22 [History Last Taken 11/28/22] loratadine 10 mg capsule 10 mg PO DAILY allergies 07/04/22 [History Last Taken 11/28/22] losartan 25 mg tablet 25 mg PO DAILY blood pressure 07/04/22 [History Last Taken 11/28/22] omega-3 fatty acids-fish oil 684 mg-1,200 mg capsule,delayed release 2 cap PO DAILY supplement 07/04/22 [History Last Taken 11/28/22] amlodipine 10 mg tablet 10 mg PO DAILY blood pressure #90 tabs 07/27/22 [Rx Last Taken 11/28/22] levetiracetam 500 mg tablet 500 mg PO BID seizures #60 tabs 08/08/22 [Rx Last Taken 11/28/22] simethicone 80 mg chewable tablet (Gas Relief 80 (simethicone)) 80 mg PO DAILY PRN gas relief 09/06/22 [History Last Taken Unknown] folic acid 1 mg tablet 1 mg PO BREAKFAST #30 tabs 09/08/22 [Rx Last Taken 11/28/22] thiamine HCl (vitamin B1) 100 mg tablet (Vitamin B-1) 100 mg PO BREAKFAST #30 tabs 09/08/22 [Rx Last Taken 11/28/22] ursodiol 250 mg tablet 250 mg PO BID liver fibrosis #180 tabs 09/21/22 [Rx Last Taken 11/28/22] levocarnitine 330 mg tablet 330 mg PO BID #60 tabs 09/28/22 [Rx Last Taken 11/28/22] prednisone 20 mg tablet 40 mg PO DAILY 30 days #60 tabs 12/02/22 [Rx Last Taken Unknown] ondansetron 4 mg disintegrating tablet 8 mg PO Q8H PRN PRN Nausea #14 tabs 12/14/22 [Rx Last Taken Unknown] [id number] 12,000-38,000-60,000 unit capsule,delayed rel (Creon) See Rx Instructions PO .COMPLEX 30 days #320 caps 12/23/22 [Rx Last Taken Unknown] Allergy/AdvReac Type Severity Reaction Status Date / Time lisinopril Allergy Angioedema Verified 12/26/22 05:48 cyclobenzaprine AdvReac Severe Skin Verified 12/26/22 05:48 crawling Iodinated Contrast Media AdvReac Intermediate ITCHY FEET Verified 12/26/22 05:48 [iodine contrast] hydrocodone bitartrate AdvReac Itching Verified 12/26/22 05:48 [From Vicodin] hydromorphone [From Dilaudid] AdvReac Itching Verified 12/26/22 05:48 morphine AdvReac Itching Verified 12/26/22 05:48 tramadol AdvReac Itching Verified 12/26/22 05:48 Family History Mother Heart disease Sister Cerebral aneurysm Father Diabetes Kidney disease Anxiety and depression Surgical History History of cholecystectomy (12/2013) History of left heart catheterization (10/31/11) Social History household members: none Smoking Status: Former smoker Tobacco: How many years used: 7 Electronic Cigarette Use: not used alcohol intake: former details: 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 substance use type: does not use caffeine: No robbin/baptist: Jehov[employer] Witness seatbelt use: always ROS ROS ED ROS Narrative Abdominal pain and nausea. Review of Systems ROS Unobtainable: Denies due to encephalopathy Constitutional Constitutional ED: Denies chills or fever(s) ENT ENT ED: Denies ear pain Cardiovascular Cardiovascular: Denies chest pain Respiratory/Chest Respiratory/Chest: Denies cough or dyspnea Gastrointestinal Gastrointestinal: Reports abdominal pain and nausea; Denies constipation, diarrhea, melena or vomiting Genitourinary Genitourinary ED: Denies dysuria or hematuria Musculoskeletal Musculoskeletal: Denies arthralgias Integumentary Denies abscess Neurologic Neurologic: Denies headache(s) Psychiatric Psychiatric: Denies anxiety Endocrine Endocrinology: Denies polydipsia Hematologic/Lymphatic Hematologic/Lymphatic: Denies easy bleeding Allergic/Immunologic Allergic/Immunologic ED: Denies mouth swelling or tongue swelling EXAM Physical Exam Narrative Exam Narrative: White male no acute distress. Vital signs stable afebrile. Does not look septic or toxic. Does not look dehydrated. H EENT exam unremarkable. Moist extremities. Lungs clear. Heart regular rhythm rate about 100 no murmur. Abdomen soft nondistended normal bowel sounds no peritoneal signs. Mild epigastric right upper quadrant tenderness. No Holder sign. No McBurney's point tenderness. No obstruction or distention. No pulsatile mass. No noted hernia. Moving all 4 extremities. Nontender no edema. Back nontender. Const Vital Signs: 12/26/22 05:46 12/26/22 08:56 Temperature 96.5 F L Temperature Source Temporal Pulse Rate 114 H 80 Respiratory Rate 18 16 Blood Pressure 144/91 H 120/83 H Blood Pressure Mean 108 95 Pulse Ox 98 97 Oxygen Delivery Method Room Air Room Air Positive well nourished and well developed; Negative for obese, cachectic, contractures or unkempt General Appearance ED: well developed and NAD; Negative for unkempt, cachectic, contractures or pallor Nutritional Appearance: Negative for cachectic or obese HEENT Reports moist mucous membranes normocephalic and atraumatic; Negative for trauma or tenderness Eyes PERRL and EOMs intact bilaterally General Eye ED: Negative for pale conjunctiva Neck no lymphadenopathy, supple and no JVD General: Negative for tenderness Carotids: Negative for other Lymph Lymphatic: Negative for other Resp normal respiratory effort and clear to auscultation bilaterally Effort and Inspection: Negative for respiratory distress Auscultation: Negative for rales, rhonchi or wheezes Cardio regular rate, regular rhythm, S1 normal heart sound, S2 normal heart sound and no murmurs Rate: Negative for bradycardia or tachycardic Rhythm: Negative for abnormal rhythm GI non-distended and no masses; Negative for non-tender Inspection: Negative for abdominal distention Auscultation: normoactive bowel sounds Palpation: soft and tender; Negative for guarding, rigid, hernia, mass, pulsatile mass or rebound tenderness present Back/Spine no CVA tenderness General Back: Negative for CVA tenderness Cervical Spine: Negative for cervical spine tenderness Thoracic Spine / Upper Back: Negative for thoracic spinal tenderness Lumbar Spine / Lower Back: Negative for lumbar spinal tenderness Coccyx: Negative for other Extremity full ROM General Extremety ED: Negative for edema or tenderness General Extremity: Negative for edema Neuro CN's II-XII intact bilaterally and moves all extremities Sensorium / Orientation: alert, oriented to person, oriented to place and oriented to time; Negative for orientation impaired, confused, lethargic or stuporous Motor Exam: strength 5/5 throughout Psych mental status grossly normal and thought process normal Appearance: Negative for unkempt Attitude: No agitated Mood & Affect: Negative for depressed, anxious or tearful Skin no wounds General Skin Exam: Negative for jaundice or pallor Lesions: no lesions Rashes: no rashes Trauma: Negative for abrasion Nails: Negative for discolored MDM MDM MDM Narrative Medical decision making narrative: 57-year-old male with abdominal pain with a history of chronic recurrent pancreatitis. He has had multiple CAT scans. I do not think he needs re-imaging. His amylase is normal his lipase is elevated but is not twice upper limits of normal at 645. He was already treated with a dose of IV Dilaudid. Patient is doing well at 9:30 AM. He will be given another half milligram IV of Dilaudid discharged home. Follow-up. I explained to him with lipase 645 technically this would be called acute pancreatitis flare. He can follow-up with his county manager. Lab Data Attestation: I reviewed the patient's lab results. Lab results narrative: CBC normal at 13. H&H 14 and 40. Platelets 219. Electrolytes sodium 131. Potassium 3.4. Gap 11. Normal BUN and creatinine. Normal liver enzymes. Glucose elevated 310. Amylase is normal at 57. Lipase is elevated at 645. Reviewing the patient's old records he has had lipase is anywhere between 100 - 6,000. Labs: Laboratory Results - last 24 hr 12/26/22 12/26/22 06:02 06:02 WBC 13.0 H RBC 4.44 L Hgb 14.3 Hct 40.6 MCV 91.4 MCH 32.2 H MCHC 35.2 RDW Std Deviation 40.6 RDW Coeff of Armin 12.1 Plt Count 219 MPV 10.0 Immature Gran % (Auto) 1.100 H Neut % (Auto) 47.8 Lymph % (Auto) 44.2 H [place] % (Auto) 5.2 Eos % (Auto) 0.9 Baso % (Auto) 0.8 Absolute Neuts (auto) 6.2 Absolute Lymphs (auto) 5.74 H Nucleated RBC % 0 Sodium 131 L Potassium 3.4 L Chloride 100 Carbon Dioxide 20.0 L Anion Gap 11 BUN 16 Creatinine 1.13 Estim Creat Clear Calc 74.47 Est GFR (MDRD) Af Amer 86 Est GFR (MDRD) Non-Af 71 BUN/Creatinine Ratio 14.2 Glucose 310 H Calcium 9.7 Total Bilirubin 0.50 AST 21 ALT 25 Alkaline Phosphatase 67 Total Protein 7.3 Albumin 3.7 Globulin 3.6 Albumin/Globulin Ratio 1.0 Amylase 57 Lipase 645 H Discharge Plan Triage Chief Complaint: Abd Pain ED Provider: Joe Gallagher Dx/Rx/DC Orders Clinical Impression: Abdominal pain, History of chronic pancreatitis, History of diabetes mellitus Instructions: Abdominal Pain Prescriptions: No Action amitriptyline 25 mg tablet 25 mg PO QHS gabapentin 300 mg capsule 300 mg PO BID levetiracetam 500 mg tablet 500 mg PO BID Qty: 60 6RF levocarnitine 330 mg tablet 330 mg PO BID Qty: 60 5RF Rx Instructions: must administer with a meal/food Creon 12,000-38,000 -60,000 unit capsule,delayed release(DR/EC) See Rx Instructions PO .COMPLEX 30 Days Qty: 320 11RF Rx Instructions: orally; take 1-2 with snacks and 2-3 with meals nitroglycerin 0.4 MG tablet 0.4 mg sublingual Q5M PRN (Reason: Chest Pain) cholecalciferol (vitamin D3) 5,000 capsule 1 cap PO DAILY insulin glargine [Lantus U-100 Insulin] 100 UNIT/ML solution 10 unit SQ QHS latanoprost 0.005 % drops 1 drp EACH EYE QHS tamsulosin 0.4 mg Capsule 0.4 mg PO QHS pantoprazole 40 mg Tablet,Delayed Release (Dr/Ec) 40 mg PO DAILY pravastatin 40 mg Tablet 60 mg PO QHS magnesium oxide 400 mg (241.3 mg magnesium) tablet 400 mg PO BID metformin 500 MG tablet 500 mg PO BID Qty: 0 0RF Hold Instructions: Hold for 3 days aspirin 81 mg Tablet,Delayed Release (Dr/Ec) 81 mg PO DAILY losartan 25 mg tablet 25 mg PO DAILY fluticasone propionate [Flonase Allergy Relief] 50 mcg/actuation [place],Suspension 2 spray INTRANASAL DAILY escitalopram oxalate 10 mg tablet 10 mg PO DAILY loratadine 10 MG capsule 10 mg PO DAILY omega-3 fatty acids-fish oil 684-1,200 mg Capsule,Delayed Release(Dr/Ec) 2 cap PO DAILY simethicone [Gas Relief 80 (simethicone)] 80 mg Tablet,Chewable 80 mg PO DAILY PRN (Reason: gas relief) thiamine HCl (vitamin B1) [Vitamin B-1] 100 mg Tablet 100 mg PO BREAKFAST Qty: 30 0RF folic acid 1 mg Tablet 1 mg PO BREAKFAST Qty: 30 0RF prednisone 20 mg tablet 40 mg PO DAILY 30 Days Qty: 60 0RF ondansetron [ondansetron] 4 mg tablet,disintegrating 8 mg PO Q8H PRN PRN (Reason: Nausea) Qty: 14 0RF hydrochlorothiazide 25 mg tablet 25 mg PO DAILY Qty: 30 11RF Hold Instructions: Hold for 3 days and start with 12.5 mg, half tablet daily. amlodipine 10 mg tablet 10 mg PO DAILY Qty: 90 3RF ursodiol 250 mg tablet 250 mg PO BID Qty: 180 1RF Primary Care Provider: Lobito Maldonado Referrals: Taras Santamaria DO [Med Staff - Active Staff] - 3-5 Days if not improving Lobito Maldonado MD [Primary Care Provider] - Activity Restrictions/Additional Instructions: Follow-up with Dr. Santamaria. Return if feeling worse. Plenty of fluids and rest. Disposition Disposition: Home, Self Care
[2022-12-26] MEDS: HYDROmorphone 0.5 MG/0.5 ML SYRINGE IV (09:52)
== END 2022-12-26 10:02 | disposition home or self-care (01) ==
PROVIDERS: Emergency Provider Emergency Medicine; PCP Internal Medicine; Visit Provider Emergency Medicine
DX: R10.9 Unspecified abdominal pain (principal); E11.9 Type 2 diabetes mellitus without complications; Z87.891 Personal history of nicotine dependence; I10 Essential (primary) hypertension; Z90.49 Acquired absence of other specified parts of digestive tract; Z87.19 Personal history of other diseases of the digestive system
CPT/HCPCS: 80053; 82150; 83690; 85025; 96374; 96375; 96376; 99285; J7030; A4216; J2405

== ENCOUNTER 2023-01-21 14:14 | Emergency (ER) | payer MEDICARE, MEDICAID, SELFPAY ==
[2023-01-21 14:16] VITALS: BP 136/79; PULSE 98; RESP 18; TEMP 36.3; O2SAT 99; BMI 27.5
--- NOTE | 2023-01-21 14:34 | ED.VIS.GI ---
HPI HPI - GI History of Present Illness Chief Complaint: Abd Pain Informant: patient Abdominal Pain/Flank Pain Onset: Today and Hours (12) Context: Gradual Onset Timing: Continuous Quality: Aching and Sharp Location: Epigastric, RUQ and LUQ Worsened by: Nothing Relieved by: Nothing Nausea/Vomiting/Emesis GI Symptom: Positive for Nausea; Negative for Vomiting Diarrhea/Melena/Hematochezia GI Symptom: Negative for Diarrhea, Melena or Hematochezia Associated Symptoms Associated Symptoms: Negative for Dysuria, Frequency or Hematuria Narrative Narrative: Patient presents with abdominal pain that began earlier this morning. Patient states it has been constant for the past 12 hours. Patient states that it came on gradually. Patient states it has been constant. Patient describes it as sharp and aching. Patient states it is over the upper abdomen and radiates into his back. Patient states it is worse whenever he lays flat. Patient admits to nausea but denies any vomiting. Patient denies any melena, hematochezia, or diarrhea. Patient states this feels similar to pain he has had with pancreatitis in the past. Patient denies drinking any alcohol recently. Prior similar symptoms: Yes (With pancreatitis) PFSH [facility] Medical History Alcohol abuse Anxiety and depression Cancer Constipation Diabetes Essential (primary) hypertension Family history of cerebral aneurysm Former tobacco use Gastric ulcer GERD (gastroesophageal reflux disease) GI bleed Glaucoma Hyperlipidemia Liver fibrosis Myocardial infarct Neck pain Polyneuropathy PSA elevation PTSD (post-traumatic stress disorder) Seizure disorder Stroke/cerebrovascular accident TIA (transient ischemic attack) Vision loss of left eye Vision loss of right eye Home Medications amitriptyline 25 mg tablet 25 mg PO QHS depression 07/03/18 [History Last Taken 11/27/22] cholecalciferol (vitamin D3) 125 mcg (5,000 unit) capsule 1 cap PO DAILY supplement 11/09/18 [History Last Taken 11/28/22] hydrochlorothiazide 25 mg tablet 25 mg PO DAILY blood pressure/heart #30 tabs 06/05/20 [Rx Last Taken 11/28/22] gabapentin 300 mg capsule 300 mg PO BID nerve pain 10/06/20 [History Last Taken 11/28/22] pantoprazole 40 mg tablet,delayed release 40 mg PO DAILY gerd 02/27/22 [History Last Taken 11/28/22] pravastatin 40 mg tablet 20 mg PO QHS cholesterol 02/27/22 [History Last Taken 11/27/22] tamsulosin 0.4 mg capsule 0.4 mg PO QHS prostate 02/27/22 [History Last Taken 11/27/22] metformin 500 mg tablet 500 mg PO BID diabetes #0 tabs 03/04/22 [Rx Last Taken 11/28/22] aspirin 81 mg tablet,delayed release 81 mg PO DAILY heart health 07/04/22 [History Last Taken 11/28/22] escitalopram oxalate 10 mg tablet 10 mg PO DAILY depression 07/04/22 [History Last Taken 11/28/22] loratadine 10 mg capsule 10 mg PO DAILY allergies 07/04/22 [History Last Taken 11/28/22] losartan 25 mg tablet 25 mg PO DAILY blood pressure 07/04/22 [History Last Taken 11/28/22] amlodipine 10 mg tablet 10 mg PO DAILY blood pressure #90 tabs 07/27/22 [Rx Last Taken 11/28/22] Allergy/AdvReac Type Severity Reaction Status Date / Time lisinopril Allergy Angioedema Verified 12/26/22 05:48 cyclobenzaprine AdvReac Severe Skin Verified 12/26/22 05:48 crawling Iodinated Contrast Media AdvReac Intermediate ITCHY FEET Verified 12/26/22 05:48 [iodine contrast] hydrocodone bitartrate AdvReac Itching Verified 12/26/22 05:48 [From Vicodin] hydromorphone [From Dilaudid] AdvReac Itching Verified 12/26/22 05:48 morphine AdvReac Itching Verified 12/26/22 05:48 tramadol AdvReac Itching Verified 12/26/22 05:48 Family History Mother Heart disease Sister Cerebral aneurysm Father Diabetes Kidney disease Anxiety and depression Surgical History History of cholecystectomy (12/2013) History of left heart catheterization (10/31/11) Social History household members: none Smoking Status: Former smoker Tobacco: How many years used: 7 Electronic Cigarette Use: not used alcohol intake: former details: 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 substance use type: does not use caffeine: No robbin/caodaism: Denominational seatbelt use: always ROS ROS ED Constitutional Constitutional ED: Denies chills or fever(s) Eyes Eyes: Reports blurry vision ENT ENT ED: Denies rhinorrhea or sore throat Cardiovascular Cardiovascular: Denies chest pain or palpitations Respiratory/Chest Respiratory/Chest: Denies cough or dyspnea Gastrointestinal Gastrointestinal: Reports abdominal pain and nausea; Denies vomiting Genitourinary Genitourinary ED: Denies dysuria or hematuria Musculoskeletal Musculoskeletal: Reports back pain and neck pain Integumentary Denies abscess or rash Neurologic Neurologic: Reports headache(s); Denies weakness Allergic/Immunologic Allergic/Immunologic ED: Denies mouth swelling or urticaria EXAM Physical Exam Const Vital Signs: 01/21/23 14:16 Temperature 97.3 F L Temperature Source Temporal Pulse Rate 98 Respiratory Rate 18 Blood Pressure 136/79 H Blood Pressure Mean 98 Pulse Ox 99 Oxygen Delivery Method Room Air Positive well nourished and well developed General Appearance ED: well developed HEENT Reports moist mucous membranes Neck supple and no JVD Resp normal respiratory effort and clear to auscultation bilaterally Cardio regular rate and regular rhythm GI normal to inspection, nondistended, normoactive bowel sounds Palpation: soft and tender epigastric, LUQ and RUQ; Negative for guarding or rebound tenderness present Extremity normal to inspection General Extremety ED: Negative for edema or tenderness General Extremity: Negative for edema Neuro oriented x3, CN's II-XII intact bilaterally and no sensory deficits noted Sensorium / Orientation: alert Motor Exam: strength 5/5 throughout Psych mental status grossly normal Skin no rashes or lesions noted MDM MDM MDM Narrative Medical decision making narrative: Differential diagnosis includes pancreatitis, gastric ulcer, gastroenteritis, gastritis, pyelonephritis, and urinary tract infection. CBC will be obtained to assess for leukocytosis and anemia. Comprehensive metabolic profile will be obtained to assess for hepatic function, renal function, and electrolyte abnormality. Lipase will be obtained to assess for pancreatitis. Urinalysis will be obtained to assess for urinary tract infection. Patient has had 3 CT scans of his abdomen pelvis already this year. I do not feel further imaging is necessary. Patient has normal bowel sounds and is not distended. I do not feel there is a bowel obstruction or perforation that will require CT imaging at this time. Lab Data Attestation: I reviewed the patient's lab results. Lab results narrative: CBC was reviewed. There is a slight leukocytosis of 12.6. The remainder is essentially within normal limits. Comprehensive metabolic profile was reviewed. Glucose was mildly elevated at 383. BUN was slightly elevated at 19. The remainder was within normal limits. Lipase was reviewed and was normal at 40. Urinalysis was reviewed. There is no evidence of urinary tract infection or hematuria. Labs: Laboratory Results - last 24 hr 01/21/23 01/21/23 01/21/23 14:45 14:45 15:18 WBC 12.6 H RBC 3.79 L Hgb 12.1 L Hct 35.5 L MCV 93.7 MCH 31.9 MCHC 34.1 RDW Std Deviation 42.9 RDW Coeff of Armin 12.5 Plt Count 180 MPV 9.6 Immature Gran % (Auto) 0.800 Neut % (Auto) 66.2 Lymph % (Auto) 25.3 [place] % (Auto) 6.3 Eos % (Auto) 1.0 Baso % (Auto) 0.4 Absolute Neuts (auto) 8.3 H Absolute Lymphs (auto) 3.18 Nucleated RBC % 0 Sodium 133 L Potassium 3.7 Chloride 100 Carbon Dioxide 25.0 Anion Gap 8 BUN 19 H Creatinine 1.13 Estim Creat Clear Calc 74.47 Est GFR (MDRD) Af Amer 86 Est GFR (MDRD) Non-Af 71 BUN/Creatinine Ratio 16.8 Glucose 383 H Calcium 9.2 Total Bilirubin 0.60 AST 15 ALT 24 Alkaline Phosphatase 81 Total Protein 6.4 Albumin 3.2 Globulin 3.2 Albumin/Globulin Ratio 1.0 Lipase 40 Urine Color Yellow Urine Clarity Clear Urine pH 6.0 Ur Specific [place] 1.020 Urine Protein Negative Urine Glucose (UA) 1000 H Urine Ketones Negative Urine Occult Blood Negative Urine Nitrite Negative Urine Bilirubin Negative Urine Urobilinogen Normal Ur Leukocyte Esterase Negative Urine RBC 0 SEEN Urine WBC 0 SEEN Ur Squamous Epith Cells 0 SEEN Urine Bacteria 0 SEEN Urine Mucus 0 SEEN Treatment and Re-Evaluation :: Patient was given IV fluids, Dilaudid, and Benadryl. Patient is feeling better on reevaluation. Patient was advised of his findings. Patient was instructed to start with a bland diet and advance as tolerated. Patient was instructed to use [id number] antiacids as needed. Patient was instructed to follow-up with his primary care physician in 3 to 5 days. Patient was instructed return if worse in any way. Patient understood and was agreeable with the plan. All questions were answered. Discharge Plan Triage Chief Complaint: Abd Pain ED Provider: Rajendra Rios Dx/Rx/DC Orders Clinical Impression: Epigastric abdominal pain, Hyperglycemia Instructions: ED Epigastric Pain Uncertain Cause Prescriptions: No Action amitriptyline 25 mg tablet 25 mg PO QHS gabapentin 300 mg capsule 300 mg PO BID cholecalciferol (vitamin D3) 5,000 capsule 1 cap PO DAILY tamsulosin 0.4 mg Capsule 0.4 mg PO QHS pantoprazole 40 mg Tablet,Delayed Release (Dr/Ec) 40 mg PO DAILY pravastatin 40 mg Tablet 20 mg PO QHS metformin 500 MG tablet 500 mg PO BID Qty: 0 0RF Hold Instructions: Hold for 3 days aspirin 81 mg Tablet,Delayed Release (Dr/Ec) 81 mg PO DAILY losartan 25 mg tablet 25 mg PO DAILY escitalopram oxalate 10 mg tablet 10 mg PO DAILY loratadine 10 MG capsule 10 mg PO DAILY hydrochlorothiazide 25 mg tablet 25 mg PO DAILY Qty: 30 11RF Hold Instructions: Hold for 3 days and start with 12.5 mg, half tablet daily. amlodipine 10 mg tablet 10 mg PO DAILY Qty: 90 3RF Primary Care Provider: Lobito Maldonado Referrals: Lobito Maldonado MD [Primary Care Provider] - 3-5 Days Disposition Disposition: Home, Self Care
[2023-01-21] MEDS: DiphenhydrAMINE 50 MG/ML Syringe 25 MG IV (14:50)
[2023-01-21] MEDS: HYDROmorphone 1 MG/ML Syringe 0.5 MG IV (14:50)
[2023-01-21] MEDS: 0.9% Normal Saline 1,000 ML 1000 ML IV (14:51)
[2023-01-21 15:05] LABS: Absolute Lymphocyte Count 3.18 X10^3/uL (0.83-4.51); Absolute Neutrophil Count 8.3 X10^3/uL (2.0-7.7); Basophil# 0.05 X10^3/uL; Basophil% 0.4 % (0-1); Eosinophil# 0.12 X10^3/uL; Hematocrit 35.5 % (40-54); Hemoglobin 12.1 g/dL (13.0-16.5); Lymphocyte # 3.18 X10^3/ul (0.83-4.51); Lymphocyte % 25.3 % (19-41); Mean Corp Hgb Conc 34.1 g/dL (32-36); Mean Corpuscular Hgb 31.9 pg (27.0-32.0); Mean Corpuscular Volume 93.7 fL (80-94); Mean Platelet Vol. 9.6 fl (6.2-12.0); Monocyte# 0.79 X10^3/uL; Monocyte% 6.3 % (0-10); NRBC Flagged by Analyzer 0 % (0-5); Neutrophil # 8.33 X10^3/uL (2.7-7.7); Neutrophil % 66.2 % (47-70); Platelet Count 180 K/mm3 (150-450); RBC Distribution Width CV 12.5 % (11.6-14.6); RBC Distribution Width SD 42.9 fl (35.1-43.9); Red Blood Count 3.79 M/mm3 (4.6-6.2); White Blood Count 12.6 K/mm3 (4.4-11.0)
[2023-01-21 15:23] LABS: Bacteria 0 SEEN /hpf (None Seen); Mucous, Urine 0 SEEN /hpf (<or=2+); Red Blood Cells-Urine 0 SEEN /hpf (0-5); Squamous Epithelial Cells - UA 0 SEEN /hpf (0-5); White Blood Cells 0 SEEN /hpf (0-5)
[2023-01-21 15:23] LABS: AST(SGOT) 15 U/L (15-37); Alanine Aminotransfer ALT/SGPT 24 U/L (16-61); Albumin, Serum 3.2 g/dL (3.2-5.0); Alkaline Phosphatase 81 U/L (45-117); Anion Gap 8 (5-15); BUN 19 mg/dL (7-18); BUN/Creat Ratio 16.8 RATIO (10-20); Calcium,Total 9.2 mg/dL (8.5-10.1); Chloride 100 mmol/L (98-107); Creatinine, Serum 1.13 mg/dL (0.70-1.30); EST Glomerular Filtration Rate 71 mL/min (>60); Est Glom Filt Rate - Afr Amer 86 mL/min (>60); Estimated Creatinine Clearance 74.47 ml/min; Globulin 3.2 g/dL (2.2-4.2); Glucose 383 mg/dL (74-106); Lipase 40 U/L (13-75); Potassium 3.7 mmol/L (3.5-5.1); Protein, Total 6.4 g/dL (6.4-8.2); Sodium Level 133 mmol/L (136-145)
[2023-01-21 15:30] LABS: Color, Urine Yellow (Yellow); Glucose, Dipstick 1000 mg/dl (Normal); Ketone-Dipstick Negative (Negative); Leukocyte Esterase-Dipstick Negative /ul (Negative); Nitrite-Dipstick Negative (Negative); Occult Blood-Urine Negative /ul (Negative); Protein-Dipstick Negative (Negative); Urine Bilirubin Dipstick Negative (Negative); Urine Clarity Clear (Clear); Urine Urobilinogen Normal (Normal)
[2023-01-21 16:05] VITALS: BP 125/85; PULSE 84; RESP 20; O2SAT 100
== END 2023-01-21 16:09 | disposition home or self-care (01) ==
PROVIDERS: Emergency Provider Emergency Medicine; PCP Internal Medicine; Visit Provider Emergency Medicine
DX: R10.13 Epigastric pain (principal); R10.11 Right upper quadrant pain; R10.12 Left upper quadrant pain; E11.65 Type 2 diabetes mellitus with hyperglycemia; G40.909 Epilepsy, unspecified, not intractable, without status epilepticus; R11.0 Nausea; I10 Essential (primary) hypertension; E78.5 Hyperlipidemia, unspecified; K21.9 Gastro-esophageal reflux disease without esophagitis; Z79.82 Long term (current) use of aspirin; Z79.84 Long term (current) use of oral hypoglycemic drugs; Z79.899 Other long term (current) drug therapy; I25.2 Old myocardial infarction; Z87.891 Personal history of nicotine dependence; Z86.73 Personal history of transient ischemic attack (TIA), and cerebral infarction without residual deficits
CPT/HCPCS: 80053; 81001; 83690; 85025; 96361; 96374; 96375; 99284; J7030; A4216

== ENCOUNTER 2023-01-22 00:25 | Emergency (ER) | payer MEDICARE, MEDICAID, SELFPAY ==
[2023-01-22 00:26] VITALS: BP 146/82; PULSE 100; RESP 16; TEMP 36.6; O2SAT 99; BMI 26.9
--- NOTE | 2023-01-22 00:30 | EX.ED.DYSGE1 ---
HPI History of Present Illness Chief Complaint: Abd Pain Narrative Narrative: 57-year-old male here for abdominal pain. Patient states that started tonight. Is epigastric. Denies alcohol use. Notes nausea but no vomiting. Denies melena hematochezia. No history of cholecystectomy. Notes has been eating a healthy diet. States the pain is constant, severe, radiating to the back. Denies any syncope, chest pain or shortness of breath. [facility] Medical History Alcohol abuse Anxiety and depression Cancer Constipation Diabetes Essential (primary) hypertension Family history of cerebral aneurysm Former tobacco use Gastric ulcer GERD (gastroesophageal reflux disease) GI bleed Glaucoma Hyperlipidemia Liver fibrosis Myocardial infarct Neck pain Polyneuropathy PSA elevation PTSD (post-traumatic stress disorder) Seizure disorder Stroke/cerebrovascular accident TIA (transient ischemic attack) Vision loss of left eye Vision loss of right eye Home Medications amitriptyline 25 mg tablet 25 mg PO QHS depression 07/03/18 [History Last Taken 11/27/22] cholecalciferol (vitamin D3) 125 mcg (5,000 unit) capsule 1 cap PO DAILY supplement 11/09/18 [History Last Taken 11/28/22] hydrochlorothiazide 25 mg tablet 25 mg PO DAILY blood pressure/heart #30 tabs 06/05/20 [Rx Last Taken 11/28/22] gabapentin 300 mg capsule 300 mg PO BID nerve pain 10/06/20 [History Last Taken 11/28/22] pantoprazole 40 mg tablet,delayed release 40 mg PO DAILY gerd 02/27/22 [History Last Taken 11/28/22] pravastatin 40 mg tablet 20 mg PO QHS cholesterol 02/27/22 [History Last Taken 11/27/22] tamsulosin 0.4 mg capsule 0.4 mg PO QHS prostate 02/27/22 [History Last Taken 11/27/22] metformin 500 mg tablet 500 mg PO BID diabetes #0 tabs 03/04/22 [Rx Last Taken 11/28/22] aspirin 81 mg tablet,delayed release 81 mg PO DAILY heart health 07/04/22 [History Last Taken 11/28/22] escitalopram oxalate 10 mg tablet 10 mg PO DAILY depression 07/04/22 [History Last Taken 11/28/22] loratadine 10 mg capsule 10 mg PO DAILY allergies 07/04/22 [History Last Taken 11/28/22] losartan 25 mg tablet 25 mg PO DAILY blood pressure 07/04/22 [History Last Taken 11/28/22] amlodipine 10 mg tablet 10 mg PO DAILY blood pressure #90 tabs 07/27/22 [Rx Last Taken 11/28/22] Allergy/AdvReac Type Severity Reaction Status Date / Time lisinopril Allergy Angioedema Verified 12/26/22 05:48 cyclobenzaprine AdvReac Severe Skin Verified 12/26/22 05:48 crawling Iodinated Contrast Media AdvReac Intermediate ITCHY FEET Verified 12/26/22 05:48 [iodine contrast] hydrocodone bitartrate AdvReac Itching Verified 12/26/22 05:48 [From Vicodin] hydromorphone [From Dilaudid] AdvReac Itching Verified 12/26/22 05:48 morphine AdvReac Itching Verified 12/26/22 05:48 tramadol AdvReac Itching Verified 12/26/22 05:48 Family History Mother Heart disease Sister Cerebral aneurysm Father Diabetes Kidney disease Anxiety and depression Surgical History History of cholecystectomy (12/2013) History of left heart catheterization (10/31/11) Social History household members: none Smoking Status: Former smoker Tobacco: How many years used: 7 Electronic Cigarette Use: not used alcohol intake: former details: 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 substance use type: does not use caffeine: No robbin/judaism: Sabianism seatbelt use: always ROS ROS ED ROS Narrative Constitutional: Denies fever HEENT: Denies sore throat Neck: Denies neck pain Cardiovascular: Denies chest pain, syncope Respiratory: Denies shortness of breath GI: Endorses abdominal pain and nausea but denies vomiting, melena or hematochezia : Denies changes in urinary habits Musculoskeletal: Denies muscle or joint pain Neurologic: Denies numbness weakness or loss of sensation Skin denies rash EXAM Physical Exam Narrative Exam Narrative: Nursing triage notes reviewed, Vital signs reviewed Constitutional: please see mdm HENT: MMM Eyes: Pupils equal round and reactive to light, Extraocular muscles intact Neck: No stridor, no JVD, full neck ROM Lungs: Clear to auscultation, No wheezing or rales. No increased work of breathing, no conversational dyspnea, no accessory muscle use, no nasal flaring. No respiratory distress noted Heart: Regular rate and rhythm, No murmurs, No rubs and No gallops, 2+ distal pulses (radial, femoral, posterior tibial) in all extremities Abdomen: Soft, noted epigastric TTP, but no rigidity, rebound or guarding, no obvious peritoneal signs, no palpable pulsatile abdominal masses, no auscultated abdominal bruit : No CVAT Extremities: No edema Neuro: No focal neurological deficits, cranial nerves II through XII intact, 5/5 strength in all extremities. Intact sensation to light touch in all extremities, 2+ reflexes bilateral patella dens. Normal gait. No ataxia. Skin: No rash or lesions noted Const Vital Signs: 01/22/23 00:26 Temperature 97.8 F Temperature Source Temporal Pulse Rate 100 Respiratory Rate 16 Blood Pressure 146/82 H Blood Pressure Mean 103 Pulse Ox 99 Oxygen Delivery Method Room Air MDM MDM MDM Narrative Medical decision making narrative: Chief Complaint: Abdominal pain External records reviewed: CT scan from 12/14/2022 shows no evidence of acute intra-abdominal abnormality MDM: Patient was hemodynamically stable. Patient epigastric abdominal pain but no obvious peritoneal signs. I considered the following differential diagnosis: Acute surgical process of the abdomen or pelvis, AAA, pancreatitis, gastritis, hepatobiliary pathology I obtained a broad lab and imaging work-up to further elucidate the etiology the patient's complaints. Factors affecting care: Hypertension, GERD, pancreatitis Social determinants of health: History obtained from others: Shared decision making: I will have a discussion with the patient and or visitors regarding risk/benefits of further testing or admission. They will be made aware of of the risk/benefits inherent in this decision they will be given the opportunity to voice understanding. Consults: Lab Data Attestation: I reviewed the patient's lab results. Lab results narrative: EKG with normal sinus rhythm, left axis deviation, normal intervals, lateral T wave inversions Discharge Plan Triage Chief Complaint: Abd Pain ED Provider: Neftali Dickson Dx/Rx/DC Orders Prescriptions: No Action amitriptyline 25 mg tablet 25 mg PO QHS gabapentin 300 mg capsule 300 mg PO BID cholecalciferol (vitamin D3) 5,000 capsule 1 cap PO DAILY tamsulosin 0.4 mg Capsule 0.4 mg PO QHS pantoprazole 40 mg Tablet,Delayed Release (Dr/Ec) 40 mg PO DAILY pravastatin 40 mg Tablet 20 mg PO QHS metformin 500 MG tablet 500 mg PO BID Qty: 0 0RF Hold Instructions: Hold for 3 days aspirin 81 mg Tablet,Delayed Release (Dr/Ec) 81 mg PO DAILY losartan 25 mg tablet 25 mg PO DAILY escitalopram oxalate 10 mg tablet 10 mg PO DAILY loratadine 10 MG capsule 10 mg PO DAILY hydrochlorothiazide 25 mg tablet 25 mg PO DAILY Qty: 30 11RF Hold Instructions: Hold for 3 days and start with 12.5 mg, half tablet daily. amlodipine 10 mg tablet 10 mg PO DAILY Qty: 90 3RF Primary Care Provider: Lobito Maldonado Referrals: Lobito Maldonado MD [Primary Care Provider] -
--- NOTE | 2023-01-22 00:53 | CT_ITS ---
INDICATION: Epigastric abdominal pain rule out perforation EXAMINATION: CT ABDOMEN AND PELVIS WITH CONTRAST - CT Abdomen And Pelvis W/ Contrast Injection TECHNIQUE: Helically acquired images were obtained of the abdomen and pelvis following IV contrast. A radiation dose optimization technique was used for this scan. IV Contrast dosage and agent: 100 mL [id number] Oral contrast: None. COMPARISON: None. FINDINGS: LOWER CHEST: Lung bases are clear. No cardiomegaly or pericardial effusion. LIVER: Homogeneous. No focal mass. GALLBLADDER AND BILIARY TREE: Absent gallbladder. Mild biliary dilatation within normal limits postcholecystectomy. PANCREAS: No focal cystic or solid mass. SPLEEN: Normal size without focal cystic or solid mass. ADRENAL GLANDS: No nodules. KIDNEYS AND URETERS: Small left renal cysts, no specific imaging follow-up required. Normal renal size and position. No hydronephrosis. PERITONEUM: No ascites or free air. No other fluid collection. BOWEL: Mild gastric antral wall thickening with trace adjacent stranding, axial image 43. . No small bowel distention or focal wall thickening. Normal appendix. Few distal colonic diverticuli present without evidence of diverticulitis. LYMPH NODES: No enlarged mesenteric or retroperitoneal lymph nodes. VESSELS: Mild aortic atherosclerosis without ectasia.. URINARY BLADDER: Unremarkable. ABDOMINAL WALL: No discrete abdominal or pelvic wall hernia. BONES: No lytic or blastic abnormality. CT/Abdomen/Pelvis W IV Cont ONLY IMPRESSION: Mild gastric antral wall thickening with adjacent stranding, nonspecific but can be seen with gastritis. No overt ulceration appreciated by CT. Fluoroscopic upper GI or endoscopy could further evaluate as indicated. No evidence of perforation. Mild distal colonic diverticulosis without evidence of diverticulitis. Electronically Signed: Danilo Troncoso MD at 2:37 EDT ,
[2023-01-22 01:09] LABS: Absolute Lymphocyte Count 2.82 X10^3/uL (0.83-4.51); Absolute Neutrophil Count 8.7 X10^3/uL (2.0-7.7); Basophil# 0.05 X10^3/uL; Basophil% 0.4 % (0-1); Eosinophil# 0.11 X10^3/uL; Eosinophils% 0.9 % (0-5); Hematocrit 34.3 % (40-54); Hemoglobin 11.6 g/dL (13.0-16.5); Lymphocyte # 2.82 X10^3/ul (0.83-4.51); Lymphocyte % 22.2 % (19-41); Mean Corp Hgb Conc 33.8 g/dL (32-36); Mean Corpuscular Hgb 32.3 pg (27.0-32.0); Mean Corpuscular Volume 95.5 fL (80-94); Mean Platelet Vol. 9.3 fl (6.2-12.0); Monocyte# 0.97 X10^3/uL; Monocyte% 7.6 % (0-10); NRBC Flagged by Analyzer 0 % (0-5); Neutrophil # 8.66 X10^3/uL (2.7-7.7); Neutrophil % 68.2 % (47-70); Platelet Count 172 K/mm3 (150-450); RBC Distribution Width CV 12.8 % (11.6-14.6); RBC Distribution Width SD 44.6 fl (35.1-43.9); Red Blood Count 3.59 M/mm3 (4.6-6.2); White Blood Count 12.7 K/mm3 (4.4-11.0)
[2023-01-22] MEDS: HYDROmorphone 1 MG/ML Syringe 0.5 MG IV (01:20)
[2023-01-22] MEDS: DiphenhydrAMINE 50 MG/ML Syringe 25 MG IV (01:20)
[2023-01-22] MEDS: 0.9% Normal Saline 1,000 ML 1000 ML IV (01:20)
[2023-01-22 01:28] LABS: AST(SGOT) 11 U/L (15-37); Alanine Aminotransfer ALT/SGPT 23 U/L (16-61); Alkaline Phosphatase 88 U/L (45-117); Anion Gap 5 (5-15); BUN 19 mg/dL (7-18); BUN/Creat Ratio 16.2 RATIO (10-20); Bilirubin, Direct 0.19 mg/dL (0.00-0.30); Calcium,Total 9.1 mg/dL (8.5-10.1); Chloride 104 mmol/L (98-107); Creatinine, Serum 1.17 mg/dL (0.70-1.30); EST Glomerular Filtration Rate 68 mL/min (>60); Est Glom Filt Rate - Afr Amer 82 mL/min (>60); Estimated Creatinine Clearance 71.93 ml/min; Globulin 3.3 g/dL (2.2-4.2); Glucose 420 mg/dL (74-106); Lipase 42 U/L (13-75); Potassium 3.7 mmol/L (3.5-5.1); Protein, Total 6.3 g/dL (6.4-8.2); Sodium Level 135 mmol/L (136-145); Troponin-I HS 8 pg/mL (3.0-78.0)
[2023-01-22] MEDS: Ketorolac 15 MG/ML Vial IV (02:34)
[2023-01-22 03:06] VITALS: BP 124/77; PULSE 62; RESP 15; O2SAT 97
== END 2023-01-22 03:17 | disposition home or self-care (01) ==
PROVIDERS: Emergency Provider Emergency Medicine; PCP Internal Medicine; Visit Provider Emergency Medicine
DX: R10.9 Unspecified abdominal pain (principal); E11.9 Type 2 diabetes mellitus without complications; K85.90 Acute pancreatitis without necrosis or infection, unspecified; Z87.891 Personal history of nicotine dependence; I10 Essential (primary) hypertension; K21.9 Gastro-esophageal reflux disease without esophagitis
CPT/HCPCS: 74177; 80048; 80076; 83690; 84484; 85025; 93005; 96361; 96374; 96375; 99285; J7030; Q9967; A4216

== ENCOUNTER → 2023-02-02 | Outpatient (CLI) | payer MEDICARE, MEDICAID, SELFPAY ==
[2023-02-06 22:06] LABS: KEPPRA (LEVETIRACETAM) 15.1 ug/mL (10.0-40.0)
== END | disposition home or self-care (01) ==
LOC: MTLAB 13:40
PROVIDERS: PCP Internal Medicine; Referring Provider Psychiatry & Neurology Neurology; Visit Provider Psychiatry & Neurology Neurology
DX: G40.909 Epilepsy, unspecified, not intractable, without status epilepticus (principal)
CPT/HCPCS: 36415; 80177; 82140

== ENCOUNTER 2023-03-10 16:58 | Emergency (ER) | payer MEDICARE, MEDICAID, SELFPAY ==
[2023-03-10 16:59] VITALS: BP 117/87; PULSE 102; RESP 18; TEMP 37.2; O2SAT 100; BMI 26.9
--- NOTE | 2023-03-10 17:38 | ED.VIS.GI ---
HPI HPI - GI History of Present Illness Chief Complaint: Abd Pain Diarrhea/Melena/Hematochezia Stool Quality: Positive for Loose Narrative Narrative: Patient with recurrent pancreatitis presents with epigastric abdominal pain, nausea and vomiting, along with diarrhea over the last 3 days. Patient has had frequent visits to the emergency department for epigastric pain. He states his symptoms began a few days ago and he could feel that his epigastric pain similar to his previous pancreatitis was coming on again. He switched to a liquid diet and started drinking more water. He has not vomited in the last 24 hours. He presents via EMS with the same epigastric pain that has had in the past. He states it has not been that long since his last emergency department visit. He usually receives Dilaudid and Benadryl. He presents for evaluation of recurrent pancreatitis. He denies any recent dietary indiscretion or alcohol use. [facility] Medical History Alcohol abuse Anxiety and depression Cancer Constipation Diabetes Essential (primary) hypertension Family history of cerebral aneurysm Former tobacco use Gastric ulcer GERD (gastroesophageal reflux disease) GI bleed Glaucoma Hyperlipidemia Liver fibrosis Myocardial infarct Neck pain Polyneuropathy PSA elevation PTSD (post-traumatic stress disorder) Seizure disorder Stroke/cerebrovascular accident TIA (transient ischemic attack) Vision loss of left eye Vision loss of right eye Home Medications amitriptyline 25 mg tablet 25 mg PO QHS depression 07/03/18 [History Last Taken 11/27/22] cholecalciferol (vitamin D3) 125 mcg (5,000 unit) capsule 1 cap PO DAILY supplement 11/09/18 [History Last Taken 11/28/22] hydrochlorothiazide 25 mg tablet 25 mg PO DAILY blood pressure/heart #30 tabs 06/05/20 [Rx Last Taken 11/28/22] gabapentin 300 mg capsule 300 mg PO BID nerve pain 10/06/20 [History Last Taken 11/28/22] pantoprazole 40 mg tablet,delayed release 40 mg PO DAILY gerd 02/27/22 [History Last Taken 11/28/22] pravastatin 40 mg tablet 20 mg PO QHS cholesterol 02/27/22 [History Last Taken 11/27/22] tamsulosin 0.4 mg capsule 0.4 mg PO QHS prostate 02/27/22 [History Last Taken 11/27/22] metformin 500 mg tablet 500 mg PO BID diabetes #0 tabs 03/04/22 [Rx Last Taken 11/28/22] aspirin 81 mg tablet,delayed release 81 mg PO DAILY heart health 07/04/22 [History Last Taken 11/28/22] escitalopram oxalate 10 mg tablet 10 mg PO DAILY depression 07/04/22 [History Last Taken 11/28/22] loratadine 10 mg capsule 10 mg PO DAILY allergies 07/04/22 [History Last Taken 11/28/22] losartan 25 mg tablet 25 mg PO DAILY blood pressure 07/04/22 [History Last Taken 11/28/22] amlodipine 10 mg tablet 10 mg PO DAILY blood pressure #90 tabs 07/27/22 [Rx Last Taken 11/28/22] levetiracetam 500 mg tablet 500 mg PO BID seizures #60 tabs 02/02/23 [Rx Last Taken Unknown] levocarnitine 330 mg tablet 330 mg PO BID #60 tabs 02/02/23 [Rx Last Taken Unknown] ursodiol 250 mg tablet 250 mg PO BID liver fibrosis #180 tabs 03/09/23 [Rx Last Taken Unknown] Allergy/AdvReac Type Severity Reaction Status Date / Time lisinopril Allergy Angioedema Verified 03/10/23 17:01 cyclobenzaprine AdvReac Severe Skin Verified 03/10/23 17:01 crawling hydrocodone bitartrate AdvReac Itching Verified 03/10/23 17:01 [From Vicodin] hydromorphone [From Dilaudid] AdvReac Itching Verified 03/10/23 17:01 morphine AdvReac Itching Verified 03/10/23 17:01 tramadol AdvReac Itching Verified 03/10/23 17:01 Family History Mother Heart disease Sister Cerebral aneurysm Father Diabetes Kidney disease Anxiety and depression Surgical History History of cholecystectomy (12/2013) History of left heart catheterization (10/31/11) Social History household members: none Smoking Status: Former smoker Tobacco: How many years used: 7 Electronic Cigarette Use: not used alcohol intake: former details: 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 substance use type: does not use caffeine: No robbin/jain: Christianity seatbelt use: always ROS ROS ED ROS Narrative Constitutional: No fever, no chills. HEENT: No sore throat. No neck pain. No loss of vision. No rhinorrhea. Cardiovascular: No chest pain. No palpitations. No pedal edema. Respiratory: No cough, no shortness of breath. Abdominal: Epigastric abdominal pain, no current nausea or vomiting, states had a loose stool today. No blood in stool. Genitourinary: No dysuria. No hematuria. Musculoskeletal: No myalgias. No arthralgias. Neurologic: No headaches. No dizziness. No lightheadedness. Skin: No rash. No change in color. Psychiatric: No depression. No anxiety. EXAM Physical Exam Narrative Exam Narrative: Afebrile. Vital signs noted. HEENT: Normocephalic. Atraumatic. PERRL, EOMI. Neck soft and supple. No point tenderness or step off. Cardiovascular: Regular rate and rhythm. No murmurs, rubs, or gallops appreciated. Respiratory: No tachypnea. Lungs clear to auscultation bilaterally. Gastrointestinal: Abdomen soft, mild tenderness to palpation epigastrium with normoactive bowel sounds. No rebound or guarding. Neurological: Awake. Alert. Nonfocal, nonlateralizing. Skin: No rash. Normal color. No pallor. Musculoskeletal: No pedal edema. Full range of motion extremities. Const Vital Signs: 03/10/23 16:59 Temperature 98.9 F Temperature Source Temporal Pulse Rate 102 H Respiratory Rate 18 Blood Pressure 117/87 H Blood Pressure Mean 97 Pulse Ox 100 Oxygen Delivery Method Room Air MDM [facility] MDM Narrative Medical decision making narrative: I reviewed the patient's prior ED visits and laboratory work. Has had frequent visits, at the end of the month of December was his last few visits, some 2 days in a row. He was administered Benadryl, Dilaudid, and IV fluids. I will check his lipase, CBC, and CMP. He is usually managed by Dr. Santamaria as an outpatient. I have seen him in the emergency department previously. I do not feel CT imaging is indicated currently, and he last had a CT scan at the end of December, 2 months ago. I reviewed his laboratory work, he has an elevated white count of 12.1, but a chronic leukocytosis, hemoglobin normal at 13.9, platelet count normal at 166. Sodium slightly low at 131, but once again chronic hyponatremia. He was bolused normal saline 1 L intravenously. Glucose is elevated at 223, but he has a normal anion gap of 9. I am not concerned for any diabetic ketoacidosis. Lipase is slightly elevated at 129. He does have chronic pancreatitis but his enzymes have been as high as 1999 recently. At this point in time, he is resting comfortably. 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 I do not feel that he requires observation at this time, and I do not feel that he needs narcotic pain medications for home. Return instructions to the emergency department were reviewed. Disposition is discharged home in stable condition. History & Record Review Discussion w/independent historian: Patient Additional record(s) reviewed:: Prior ED visit and Prior labs Lab Data Attestation: I reviewed the patient's lab results. Labs: Laboratory Results - last 24 hr 03/10/23 03/10/23 18:01 18:01 WBC 12.1 H RBC 4.30 L Hgb 13.9 Hct 39.8 L MCV 92.6 MCH 32.3 H MCHC 34.9 RDW Std Deviation 43.2 RDW Coeff of Armin 12.7 Plt Count 166 MPV 9.5 Immature Gran % (Auto) 0.200 Neut % (Auto) 68.6 Lymph % (Auto) 22.4 Grand % (Auto) 7.0 Eos % (Auto) 1.5 Baso % (Auto) 0.3 Absolute Neuts (auto) 8.3 H Absolute Lymphs (auto) 2.72 Nucleated RBC % 0 Sodium 131 L Potassium 3.8 Chloride 98 Carbon Dioxide 24.0 Anion Gap 9 BUN 13 Creatinine 1.14 Estim Creat Clear Calc 73.82 Est GFR (MDRD) Af Amer 85 Est GFR (MDRD) Non-Af 70 BUN/Creatinine Ratio 11.4 Glucose 223 H Calcium 9.7 Total Bilirubin 0.70 AST 21 ALT 17 Alkaline Phosphatase 66 Total Protein 7.6 Albumin 3.8 Globulin 3.8 Albumin/Globulin Ratio 1.0 Lipase 129 H Discharge Plan Triage Chief Complaint: Abd Pain ED Provider: Alejandro Gandhi Dx/Rx/DC Orders Clinical Impression: Epigastric pain, Elevated lipase Instructions: ED Pancreatitis, ED Epigastric Pain Uncertain Cause Prescriptions: No Action amitriptyline 25 mg tablet 25 mg PO QHS gabapentin 300 mg capsule 300 mg PO BID levetiracetam 500 mg tablet 500 mg PO BID Qty: 60 6RF levocarnitine 330 mg tablet 330 mg PO BID Qty: 60 6RF Rx Instructions: must administer with a meal/food cholecalciferol (vitamin D3) 5,000 capsule 1 cap PO DAILY tamsulosin 0.4 mg Capsule 0.4 mg PO QHS pantoprazole 40 mg Tablet,Delayed Release (Dr/Ec) 40 mg PO DAILY pravastatin 40 mg Tablet 20 mg PO QHS metformin 500 MG tablet 500 mg PO BID Qty: 0 0RF Hold Instructions: Hold for 3 days aspirin 81 mg Tablet,Delayed Release (Dr/Ec) 81 mg PO DAILY losartan 25 mg tablet 25 mg PO DAILY escitalopram oxalate 10 mg tablet 10 mg PO DAILY loratadine 10 MG capsule 10 mg PO DAILY hydrochlorothiazide 25 mg tablet 25 mg PO DAILY Qty: 30 11RF Hold Instructions: Hold for 3 days and start with 12.5 mg, half tablet daily. amlodipine 10 mg tablet 10 mg PO DAILY Qty: 90 3RF ursodiol 250 mg tablet 250 mg PO BID Qty: 180 1RF Primary Care Provider: Lobito Maldonado Referrals: Taras Santamaria DO [Med Staff - Active Staff] - As soon as possible Lobito Maldonado MD [Primary Care Provider] - Disposition Disposition: Home, Self Care
[2023-03-10] MEDS: DiphenhydrAMINE 50 MG/ML Syringe 25 MG IV (18:15)
[2023-03-10] MEDS: HYDROmorphone 1 MG/ML Syringe IV (18:16)
[2023-03-10] MEDS: 0.9% Normal Saline 1,000 ML 1000 ML IV (18:16)
[2023-03-10 18:22] LABS: Absolute Lymphocyte Count 2.72 X10^3/uL (0.83-4.51); Absolute Neutrophil Count 8.3 X10^3/uL (2.0-7.7); Basophil# 0.04 X10^3/uL; Basophil% 0.3 % (0-1); Eosinophil# 0.18 X10^3/uL; Eosinophils% 1.5 % (0-5); Hematocrit 39.8 % (40-54); Hemoglobin 13.9 g/dL (13.0-16.5); Lymphocyte # 2.72 X10^3/ul (0.83-4.51); Lymphocyte % 22.4 % (19-41); Mean Corp Hgb Conc 34.9 g/dL (32-36); Mean Corpuscular Hgb 32.3 pg (27.0-32.0); Mean Corpuscular Volume 92.6 fL (80-94); Mean Platelet Vol. 9.5 fl (6.2-12.0); Monocyte# 0.85 X10^3/uL; NRBC Flagged by Analyzer 0 % (0-5); Neutrophil % 68.6 % (47-70); Platelet Count 166 K/mm3 (150-450); RBC Distribution Width CV 12.7 % (11.6-14.6); RBC Distribution Width SD 43.2 fl (35.1-43.9); White Blood Count 12.1 K/mm3 (4.4-11.0)
[2023-03-10 18:44] LABS: AST(SGOT) 21 U/L (15-37); Alanine Aminotransfer ALT/SGPT 17 U/L (16-61); Albumin, Serum 3.8 g/dL (3.2-5.0); Alkaline Phosphatase 66 U/L (45-117); Anion Gap 9 (5-15); BUN 13 mg/dL (7-18); BUN/Creat Ratio 11.4 RATIO (10-20); Calcium,Total 9.7 mg/dL (8.5-10.1); Chloride 98 mmol/L (98-107); Creatinine, Serum 1.14 mg/dL (0.70-1.30); EST Glomerular Filtration Rate 70 mL/min (>60); Est Glom Filt Rate - Afr Amer 85 mL/min (>60); Estimated Creatinine Clearance 73.82 ml/min; Globulin 3.8 g/dL (2.2-4.2); Glucose 223 mg/dL (74-106); Lipase 129 U/L (13-75); Potassium 3.8 mmol/L (3.5-5.1); Protein, Total 7.6 g/dL (6.4-8.2); Sodium Level 131 mmol/L (136-145)
== END 2023-03-10 19:37 | disposition home or self-care (01) ==
PROVIDERS: Emergency Provider Emergency Medicine; PCP Internal Medicine; Visit Provider Emergency Medicine
DX: R10.13 Epigastric pain (principal); K86.1 Other chronic pancreatitis; E11.9 Type 2 diabetes mellitus without complications; R74.8 Abnormal levels of other serum enzymes; E87.1 Hypo-osmolality and hyponatremia; R19.7 Diarrhea, unspecified; R11.2 Nausea with vomiting, unspecified; I10 Essential (primary) hypertension; K21.9 Gastro-esophageal reflux disease without esophagitis; E78.5 Hyperlipidemia, unspecified; I25.2 Old myocardial infarction; Z86.73 Personal history of transient ischemic attack (TIA), and cerebral infarction without residual deficits; Z87.891 Personal history of nicotine dependence
CPT/HCPCS: 80053; 83690; 85025; 96361; 96374; 96375; 99285; J7030; A4216

== ENCOUNTER 2023-04-30 04:52 | Emergency (ER) | payer MEDICARE, MEDICAID, SELFPAY ==
[2023-04-30 04:54] VITALS: BP 144/79; PULSE 109; RESP 18; TEMP 36.9; O2SAT 98; BMI 27.1
--- NOTE | 2023-04-30 05:06 | EDS_ITS ---
HPI HPI - GI History of Present Illness Chief Complaint: Abd Pain Informant: patient Narrative Narrative: It is the pancreatitis again. Patient is a history of recurrent pancreatitis. He states he has not been drinking alcohol for some time. He was feeling well until just couple hours ago. He started to get epigastric pain that is beginning to radiate toward his back. This is a very typical feeling for him. He states he did not eat anything abnormal. He had a turkey and ham sandwich with some potatoes. It tasted well. He did vomit a little bit at home but no blood. He has mild nausea now. No change in bowel habits but he has been moving them normally. They have not been black or bloody. No fevers or chills. Only surgeries are cholecystectomy. [facility] Medical History Alcohol abuse Anxiety and depression Cancer Constipation Diabetes Essential (primary) hypertension Family history of cerebral aneurysm Former tobacco use Gastric ulcer GERD (gastroesophageal reflux disease) GI bleed Glaucoma Hyperlipidemia Liver fibrosis Myocardial infarct Neck pain Polyneuropathy PSA elevation PTSD (post-traumatic stress disorder) Seizure disorder Stroke/cerebrovascular accident TIA (transient ischemic attack) Vision loss of left eye Vision loss of right eye Home Medications amitriptyline 25 mg tablet 25 mg PO QHS depression 07/03/18 [History Last Taken 11/27/22] cholecalciferol (vitamin D3) 125 mcg (5,000 unit) capsule 1 cap PO DAILY supplement 11/09/18 [History Last Taken 11/28/22] hydrochlorothiazide 25 mg tablet 25 mg PO DAILY blood pressure/heart #30 tabs 06/05/20 [Rx Last Taken 11/28/22] gabapentin 300 mg capsule 300 mg PO BID nerve pain 10/06/20 [History Last Taken 11/28/22] pantoprazole 40 mg tablet,delayed release 40 mg PO DAILY gerd 02/27/22 [History Last Taken 11/28/22] pravastatin 40 mg tablet 20 mg PO QHS cholesterol 02/27/22 [History Last Taken 11/27/22] tamsulosin 0.4 mg capsule 0.4 mg PO QHS prostate 02/27/22 [History Last Taken 11/27/22] metformin 500 mg tablet 500 mg PO BID diabetes #0 tabs 03/04/22 [Rx Last Taken 11/28/22] aspirin 81 mg tablet,delayed release 81 mg PO DAILY heart health 07/04/22 [History Last Taken 11/28/22] escitalopram oxalate 10 mg tablet 10 mg PO DAILY depression 07/04/22 [History Last Taken 11/28/22] loratadine 10 mg capsule 10 mg PO DAILY allergies 07/04/22 [History Last Taken 11/28/22] losartan 25 mg tablet 25 mg PO DAILY blood pressure 07/04/22 [History Last Taken 11/28/22] amlodipine 10 mg tablet 10 mg PO DAILY blood pressure #90 tabs 07/27/22 [Rx Last Taken 11/28/22] levetiracetam 500 mg tablet 500 mg PO BID seizures #60 tabs 02/02/23 [Rx Last Taken Unknown] levocarnitine 330 mg tablet 330 mg PO BID #60 tabs 02/02/23 [Rx Last Taken Unknown] ursodiol 250 mg tablet 250 mg PO BID liver fibrosis #180 tabs 03/09/23 [Rx Last Taken Unknown] ondansetron 4 mg disintegrating tablet 4 mg PO Q8H PRN PRN Nausea #10 tabs 04/30/23 [Rx Last Taken Unknown] oxycodone-acetaminophen 5 mg-325 mg tablet 1 tab PO Q6H PRN PRN Pain 3 days #12 TABLETS 04/30/23 [Rx Last Taken Unknown] promethazine 25 mg tablet 25 mg PO Q6H PRN PRN Nausea #10 TABLETS 04/30/23 [Rx Last Taken Unknown] Allergy/AdvReac Type Severity Reaction Status Date / Time hydromorphone [From Dilaudid] Allergy Itching Verified 04/30/23 04:54 lisinopril Allergy Angioedema Verified 04/30/23 04:54 cyclobenzaprine AdvReac Severe Skin Verified 04/30/23 04:54 crawling hydrocodone bitartrate AdvReac Itching Verified 04/30/23 04:54 [From Vicodin] morphine AdvReac Itching Verified 04/30/23 04:54 tramadol AdvReac Itching Verified 04/30/23 04:54 Family History Mother Heart disease Sister Cerebral aneurysm Father Diabetes Kidney disease Anxiety and depression Surgical History History of cholecystectomy (12/2013) History of left heart catheterization (10/31/11) Social History household members: none Smoking Status: Former smoker Tobacco: How many years used: 7 Electronic Cigarette Use: not used alcohol intake: former details: 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 substance use type: does not use caffeine: No robbin/protestant: Christianity seatbelt use: always ROS ROS ED ROS Narrative A complete review of systems was performed and is negative except as documented in the history of present illness. Some specific details below. Constitutional: No recent fevers or chills. He felt fine until this started just couple hours ago. EYE: No visual complaints or pain. ENT: No difficulty swallowing. No swelling. No pain. CV: No chest pain or palpitations. Respiratory: No dyspnea. No hemoptysis. No difficulty taking breaths. GI: Please see history of present illness. : No frequency dysuria or hematuria. Musculoskeletal: No recent trauma. No pains. Skin: No rash. Nondiaphoretic. Neuro: No weakness or numbness. Endocrine: No polyuria or polydipsia. EXAM Physical Exam Narrative Exam Narrative: CONSTITUTIONAL: Patient is nontoxic in appearance. The patient looks comfortable. HEENT: No notable trauma. Mucous membranes are still moist. No sinus tenderness. No indication of pain with swallowing. EYES: No icterus. No conjunctival injection. No proptosis. CARDIOVASCULAR: Regular rate. Regular rhythm. No notable murmur. No JVD. RESPIRATORY: No respiratory distress. Breathing is unlabored. No wheezes. No rhonchi. No rales. No pain with a deep breath. GASTROINTESTINAL: Not distended. Bowel sounds are normal. Mild epigastric tenderness. But no mass. No hernia. No bruit. There is no rebound or guarding. GENITOURINARY: No tenderness over the bladder. No CVA tenderness. MUSCULOSKELETAL: Atraumatic. NEUROLOGICAL: Patient is alert and appropriate. No focal deficit noted. SKIN: No noted rashes. No diaphoresis. No pallor. PSYCHIATRIC: Patient is calm. Mood is appropriate. Const Vital Signs: 04/30/23 04:54 Temperature 98.5 F Temperature Source Temporal Pulse Rate 109 H Respiratory Rate 18 Blood Pressure 144/79 H Blood Pressure Mean 100 Pulse Ox 98 MDM MDM MDM Narrative Medical decision making narrative: My independent interpretation the patient's 4 view abdominal series show no acute process in chest or abdomen. Mild increased stool. No sign of obstruction or free air. Final reading is pending at this time. CBC shows a mild nonspecific elevation in the white count. Electrolytes show minimally low sodium that should self correct. Glucose is slightly up. Bicarb and anion gap are normal. Patient's liver function test are overall normal. Patient's lipase is up a bit at 350. But his lipase is normally elevated. He has had a couple that are normal but generally he is always up a bit. We rechecked the patient. He is still having some pain. But nausea is better. He would like to try to go home. I explained that he really needs to make sure that he limits his p.o. intake. Should be liquid diet. He should avoid alcohol as his alcohol is a bit elevated this time. I will write for meds for nausea and pain. I think he truly does have a painful condition. We discussed reasons to return. I think he does have a reasonable chance of returning but he also has a chronic condition that it for the most part is managed as an outpatient and I think it is reasonable to try this. Lab Data Attestation: I reviewed the patient's lab results. Labs: Laboratory Results - last 24 hr 04/30/23 04:59 WBC 12.7 H RBC 4.58 L Hgb 14.4 Hct 40.8 MCV 89.1 MCH 31.4 MCHC 35.3 RDW Std Deviation 40.9 RDW Coeff of Armin 12.5 Plt Count 240 MPV 9.1 Immature Gran % (Auto) 0.400 Neut % (Auto) 73.6 H Lymph % (Auto) 17.5 L [place] % (Auto) 7.3 Eos % (Auto) 0.6 Baso % (Auto) 0.6 Absolute Neuts (auto) 9.3 H Absolute Lymphs (auto) 2.22 Nucleated RBC % 0 Sodium 133 L Potassium 3.7 Chloride 97 L Carbon Dioxide 23.0 Anion Gap 13 BUN 7 Creatinine 0.97 Estim Creat Clear Calc 85.71 Est GFR (MDRD) Af Amer 102 Est GFR (MDRD) Non-Af 84 BUN/Creatinine Ratio 7.2 L Glucose 206 H Calcium 9.8 Total Bilirubin 0.70 AST 17 ALT 29 Alkaline Phosphatase 72 Total Protein 8.3 H Albumin 4.1 Globulin 4.2 Albumin/Globulin Ratio 1.0 Lipase 351 H Ethyl Alcohol 63.0 Radiography X-Ray: Read by ED Physician Discharge Plan Triage Chief Complaint: Abd Pain ED Provider: Magno Mora Dx/Rx/DC Orders Clinical Impression: Alcohol use, Pancreatitis, Abdominal pain Instructions: ED Pancreatitis Prescriptions: New oxycodone-acetaminophen [oxycodone-acetaminophen] 5-325 mg tablet 1 tab PO Q6H PRN PRN (Reason: Pain) 3 Days Qty: 12 0RF promethazine [promethazine] 25 mg tablet 25 mg PO Q6H PRN PRN (Reason: Nausea) Qty: 10 0RF ondansetron [ondansetron] 4 mg tablet,disintegrating 4 mg PO Q8H PRN PRN (Reason: Nausea) Qty: 10 0RF No Action amitriptyline 25 mg tablet 25 mg PO QHS gabapentin 300 mg capsule 300 mg PO BID levetiracetam 500 mg tablet 500 mg PO BID Qty: 60 6RF levocarnitine 330 mg tablet 330 mg PO BID Qty: 60 6RF Rx Instructions: must administer with a meal/food cholecalciferol (vitamin D3) 5,000 capsule 1 cap PO DAILY tamsulosin 0.4 mg Capsule 0.4 mg PO QHS pantoprazole 40 mg Tablet,Delayed Release (Dr/Ec) 40 mg PO DAILY pravastatin 40 mg Tablet 20 mg PO QHS metformin 500 MG tablet 500 mg PO BID Qty: 0 0RF Hold Instructions: Hold for 3 days aspirin 81 mg Tablet,Delayed Release (Dr/Ec) 81 mg PO DAILY losartan 25 mg tablet 25 mg PO DAILY escitalopram oxalate 10 mg tablet 10 mg PO DAILY loratadine 10 MG capsule 10 mg PO DAILY hydrochlorothiazide 25 mg tablet 25 mg PO DAILY Qty: 30 11RF Hold Instructions: Hold for 3 days and start with 12.5 mg, half tablet daily. amlodipine 10 mg tablet 10 mg PO DAILY Qty: 90 3RF ursodiol 250 mg tablet 250 mg PO BID Qty: 180 1RF Primary Care Provider: Lobito Maldonado Referrals: Lobito Maldonado MD [Primary Care Provider] - 1-2 Days if not improving Disposition Disposition: Home, Self Care
[2023-04-30] MEDS: Ondansetron 4 MG/2 ML Vial IV (05:08)
[2023-04-30] MEDS: 0.9% Normal Saline 1,000 ML 1000 ML IV (05:08)
[2023-04-30] MEDS: HYDROmorphone 1 MG/ML Syringe IV ×2 (05:08→06:17)
[2023-04-30] MEDS: DiphenhydrAMINE 50 MG/ML Syringe 25 MG IV (05:08)
[2023-04-30 05:14] LABS: Absolute Lymphocyte Count 2.22 X10^3/uL (0.83-4.51); Absolute Neutrophil Count 9.3 X10^3/uL (2.0-7.7); Basophil# 0.07 X10^3/uL; Basophil% 0.6 % (0-1); Eosinophil# 0.07 X10^3/uL; Eosinophils% 0.6 % (0-5); Hematocrit 40.8 % (40-54); Hemoglobin 14.4 g/dL (13.0-16.5); Lymphocyte # 2.22 X10^3/ul (0.83-4.51); Lymphocyte % 17.5 % (19-41); Mean Corp Hgb Conc 35.3 g/dL (32-36); Mean Corpuscular Hgb 31.4 pg (27.0-32.0); Mean Corpuscular Volume 89.1 fL (80-94); Mean Platelet Vol. 9.1 fl (6.2-12.0); Monocyte# 0.93 X10^3/uL; Monocyte% 7.3 % (0-10); NRBC Flagged by Analyzer 0 % (0-5); Neutrophil # 9.33 X10^3/uL (2.7-7.7); Neutrophil % 73.6 % (47-70); Platelet Count 240 K/mm3 (150-450); RBC Distribution Width CV 12.5 % (11.6-14.6); RBC Distribution Width SD 40.9 fl (35.1-43.9); Red Blood Count 4.58 M/mm3 (4.6-6.2); White Blood Count 12.7 K/mm3 (4.4-11.0)
[2023-04-30 05:45] LABS: AST(SGOT) 17 U/L (15-37); Alanine Aminotransfer ALT/SGPT 29 U/L (16-61); Albumin, Serum 4.1 g/dL (3.2-5.0); Alkaline Phosphatase 72 U/L (45-117); Anion Gap 13 (5-15); BUN 7 mg/dL (7-18); BUN/Creat Ratio 7.2 RATIO (10-20); Calcium,Total 9.8 mg/dL (8.5-10.1); Chloride 97 mmol/L (98-107); Creatinine, Serum 0.97 mg/dL (0.70-1.30); EST Glomerular Filtration Rate 84 mL/min (>60); Est Glom Filt Rate - Afr Amer 102 mL/min (>60); Estimated Creatinine Clearance 85.71 ml/min; Globulin 4.2 g/dL (2.2-4.2); Glucose 206 mg/dL (74-106); Potassium 3.7 mmol/L (3.5-5.1); Protein, Total 8.3 g/dL (6.4-8.2); Sodium Level 133 mmol/L (136-145)
--- NOTE | 2023-04-30 05:45 | RAD_ITS ---
EXAM: XR ABDOMEN, 2 VIEWS AND XR CHEST, 1 VIEW CLINICAL INDICATION: Pain Pain TECHNIQUE: Frontal view of the chest, frontal view of the abdomen/pelvis and upright or decubitus view of the abdomen. COMPARISON: No relevant prior studies available. FINDINGS: CHEST: LUNGS AND PLEURAL SPACES: Unremarkable. No consolidation or edema. No pneumothorax. No effusion. HEART: Unremarkable. Cardiac silhouette not enlarged. MEDIASTINUM: Central airways and mediastinal contour are unremarkable. ABDOMEN: INTRAPERITONEAL SPACE: No free air. GASTROINTESTINAL TRACT: Unremarkable. Non-obstructive. No bowel or stomach distention. ORGANS: Unremarkable as visualized. No organomegaly. No abnormal calcifications. TUBES, LINES AND DEVICES: None. BONES/JOINTS: No acute findings. SOFT TISSUES: No acute findings. RAD/Acute Abdomen Inc Chest IMPRESSION: Negative chest and abdominal series. Electronically Signed: Dinesh Garland MD at 6:40 EDT Reading Location ID and State: [facility] / [place] , Service support ,
[2023-04-30 05:54] LABS: Lipase 351 U/L (13-75)
[2023-04-30 06:22] VITALS: BP 108/71; PULSE 74; RESP 18; O2SAT 99
== END 2023-04-30 06:22 | disposition home or self-care (01) ==
PROVIDERS: Emergency Provider Emergency Medicine; PCP Internal Medicine; Visit Provider Emergency Medicine
DX: K85.90 Acute pancreatitis without necrosis or infection, unspecified (principal); E11.42 Type 2 diabetes mellitus with diabetic polyneuropathy; K86.1 Other chronic pancreatitis; G40.909 Epilepsy, unspecified, not intractable, without status epilepticus; F10.90 Alcohol use, unspecified, uncomplicated; R11.2 Nausea with vomiting, unspecified; I10 Essential (primary) hypertension; K21.9 Gastro-esophageal reflux disease without esophagitis; Z79.84 Long term (current) use of oral hypoglycemic drugs; Z79.82 Long term (current) use of aspirin; Z79.899 Other long term (current) drug therapy; Z87.891 Personal history of nicotine dependence; E78.5 Hyperlipidemia, unspecified; Z86.73 Personal history of transient ischemic attack (TIA), and cerebral infarction without residual deficits
CPT/HCPCS: 74022; 80053; 82077; 83690; 85025; 96361; 96374; 96375; 96376; 99285; A4216; J2405

== ENCOUNTER 2023-05-03 20:55 | Emergency (ER) | payer MEDICARE, MEDICAID, SELFPAY ==
[2023-05-03 20:57] VITALS: BP 148/94; PULSE 95; RESP 16; TEMP 36.3; O2SAT 98; BMI 26.5
[2023-05-03 21:12] LABS: Absolute Lymphocyte Count 3.33 X10^3/uL (0.83-4.51); Absolute Neutrophil Count 7.3 X10^3/uL (2.0-7.7); Basophil# 0.04 X10^3/uL; Basophil% 0.3 % (0-1); Eosinophil# 0.22 X10^3/uL; Eosinophils% 1.9 % (0-5); Hematocrit 39.2 % (40-54); Hemoglobin 13.1 g/dL (13.0-16.5); Lymphocyte # 3.33 X10^3/ul (0.83-4.51); Mean Corp Hgb Conc 33.4 g/dL (32-36); Mean Corpuscular Hgb 31.1 pg (27.0-32.0); Mean Corpuscular Volume 93.1 fL (80-94); Mean Platelet Vol. 9.4 fl (6.2-12.0); Monocyte# 0.54 X10^3/uL; Monocyte% 4.7 % (0-10); NRBC Flagged by Analyzer 0 % (0-5); Neutrophil # 7.31 X10^3/uL (2.7-7.7); Neutrophil % 63.8 % (47-70); Platelet Count 214 K/mm3 (150-450); RBC Distribution Width CV 12.8 % (11.6-14.6); RBC Distribution Width SD 43.7 fl (35.1-43.9); Red Blood Count 4.21 M/mm3 (4.6-6.2); White Blood Count 11.5 K/mm3 (4.4-11.0)
[2023-05-03 21:16] LABS: Bacteria 0 SEEN /hpf (None Seen); Mucous, Urine 0 SEEN /hpf (<or=2+); Red Blood Cells-Urine 0 SEEN /hpf (0-5); Squamous Epithelial Cells - UA 0 SEEN /hpf (0-5); White Blood Cells 0 SEEN /hpf (0-5)
[2023-05-03 21:18] LABS: Color, Urine Yellow (Yellow); Glucose, Dipstick 100 mg/dl (Normal); Ketone-Dipstick Negative (Negative); Leukocyte Esterase-Dipstick Negative /ul (Negative); Nitrite-Dipstick Negative (Negative); Occult Blood-Urine Negative /ul (Negative); Protein-Dipstick 30 mg/dl (Negative); Specific Gravity, Urine 1.005 (1.002-1.030); Urine Bilirubin Dipstick Negative (Negative); Urine Clarity Clear (Clear); Urine Urobilinogen Normal (Normal)
[2023-05-03 21:30] LABS: AST(SGOT) 14 U/L (15-37); Alanine Aminotransfer ALT/SGPT 18 U/L (16-61); Alkaline Phosphatase 72 U/L (45-117); Anion Gap 8 (5-15); BUN 13 mg/dL (7-18); BUN/Creat Ratio 9.5 RATIO (10-20); Calcium,Total 9.8 mg/dL (8.5-10.1); Chloride 99 mmol/L (98-107); Creatinine, Serum 1.37 mg/dL (0.70-1.30); EST Glomerular Filtration Rate 57 mL/min (>60); Est Glom Filt Rate - Afr Amer 69 mL/min (>60); Estimated Creatinine Clearance 60.69 ml/min; Globulin 3.9 g/dL (2.2-4.2); Glucose 242 mg/dL (74-106); Protein, Total 7.9 g/dL (6.4-8.2); Sodium Level 136 mmol/L (136-145)
[2023-05-03 22:31] LABS: Lipase 60 U/L (13-75)
[2023-05-03] MEDS: 0.9% Normal Saline 1,000 ML 999 ML IV (22:51)
[2023-05-03] MEDS: Ondansetron 4 MG/2 ML Vial IV (22:52)
[2023-05-03] MEDS: DiphenhydrAMINE 50 MG/ML Syringe 25 MG IV (22:52)
[2023-05-03] MEDS: morphine 8 MG/ML Syringe 6 MG IV (22:52)
--- NOTE | 2023-05-03 23:00 | ED.RN ---
Medicated per order. Warm blankets given, call light in reach.
--- NOTE | 2023-05-03 23:00 | ED.VIS.GI ---
HPI HPI - GI History of Present Illness Chief Complaint: Abd Pain Informant: patient Narrative Narrative: Patient is a 58-year-old male with history of pancreatitis, hypertension and prior cholecystectomy as well as prior alcohol use presenting for concern for recurrent pancreatitis. Patient was evaluated in our ER 3 days ago for the same complaint. At that time he was complained of epigastric pain. His lipase was minimally elevated but not meet criteria for acute pancreatitis. He was sent home with a prescription for [place] and Zofran. He states he is ran out of his prescriptions but they were not helping. He has been adhering to a liquid diet pretty much is eating chicken noodle soup and broth. He also notes that he has been urinating less he is not sure if it is because of his prostate or because he is dehydrated. He states he is continue to have epigastric abdominal pain. It radiates slightly to the right and underneath his ribs. He has had some nausea but no recent vomiting. Denies any chest pain or difficulty breathing. No other complaints or concerns at this time. [facility] Medical History Alcohol abuse Anxiety and depression Cancer Constipation Diabetes Essential (primary) hypertension Family history of cerebral aneurysm Former tobacco use Gastric ulcer GERD (gastroesophageal reflux disease) GI bleed Glaucoma Hyperlipidemia Liver fibrosis Myocardial infarct Neck pain Polyneuropathy PSA elevation PTSD (post-traumatic stress disorder) Seizure disorder Stroke/cerebrovascular accident TIA (transient ischemic attack) Vision loss of left eye Vision loss of right eye Home Medications amitriptyline 25 mg tablet 25 mg PO QHS depression 07/03/18 [History Last Taken 11/27/22] cholecalciferol (vitamin D3) 125 mcg (5,000 unit) capsule 1 cap PO DAILY supplement 11/09/18 [History Last Taken 11/28/22] hydrochlorothiazide 25 mg tablet 25 mg PO DAILY blood pressure/heart #30 tabs 06/05/20 [Rx Last Taken 11/28/22] gabapentin 300 mg capsule 300 mg PO BID nerve pain 10/06/20 [History Last Taken 11/28/22] pantoprazole 40 mg tablet,delayed release 40 mg PO DAILY gerd 02/27/22 [History Last Taken 11/28/22] pravastatin 40 mg tablet 20 mg PO QHS cholesterol 02/27/22 [History Last Taken 11/27/22] metformin 500 mg tablet 500 mg PO BID diabetes #0 tabs 03/04/22 [Rx Last Taken 11/28/22] aspirin 81 mg tablet,delayed release 81 mg PO DAILY heart health 07/04/22 [History Last Taken 11/28/22] escitalopram oxalate 10 mg tablet 10 mg PO DAILY depression 07/04/22 [History Last Taken 11/28/22] loratadine 10 mg capsule 10 mg PO DAILY allergies 07/04/22 [History Last Taken 11/28/22] losartan 25 mg tablet 25 mg PO DAILY blood pressure 07/04/22 [History Last Taken 11/28/22] amlodipine 10 mg tablet 10 mg PO DAILY blood pressure #90 tabs 07/27/22 [Rx Last Taken 11/28/22] levetiracetam 500 mg tablet 500 mg PO BID seizures #60 tabs 02/02/23 [Rx Last Taken Unknown] levocarnitine 330 mg tablet 330 mg PO BID #60 tabs 02/02/23 [Rx Last Taken Unknown] ursodiol 250 mg tablet 250 mg PO BID liver fibrosis #180 tabs 03/09/23 [Rx Last Taken Unknown] ondansetron 4 mg disintegrating tablet 4 mg PO Q8H PRN PRN Nausea #10 tabs 04/30/23 [Rx Last Taken Unknown] promethazine 25 mg tablet 25 mg PO Q6H PRN PRN Nausea #10 TABLETS 04/30/23 [Rx Last Taken Unknown] amoxicillin 875 mg-potassium clavulanate 125 mg tablet 1 tab PO BID #14 tabs 05/04/23 [Rx Last Taken Unknown] ondansetron 4 mg disintegrating tablet 4 mg PO Q8H PRN PRN Nausea #10 tabs 05/04/23 [Rx Last Taken Unknown] oxycodone 5 mg tablet 5 mg PO Q6H PRN pain 1 day #4 tabs 05/04/23 [Rx Last Taken Unknown] Allergy/AdvReac Type Severity Reaction Status Date / Time hydromorphone [From Dilaudid] Allergy Itching Verified 05/03/23 20:59 lisinopril Allergy Angioedema Verified 05/03/23 20:59 cyclobenzaprine AdvReac Severe Skin Verified 05/03/23 20:59 crawling hydrocodone bitartrate AdvReac Itching Verified 05/03/23 20:59 [From Vicodin] morphine AdvReac Itching Verified 05/03/23 20:59 tramadol AdvReac Itching Verified 05/03/23 20:59 Family History Mother Heart disease Sister Cerebral aneurysm Father Diabetes Kidney disease Anxiety and depression Surgical History History of cholecystectomy (12/2013) History of left heart catheterization (10/31/11) Social History household members: none Smoking Status: Former smoker Tobacco: How many years used: 7 Electronic Cigarette Use: not used alcohol intake: former details: 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 substance use type: does not use caffeine: No robbin/orthodox: Baptism seatbelt use: always ROS ROS ED Constitutional Constitutional ED: Denies chills or fever(s) Cardiovascular Cardiovascular: Denies chest pain Respiratory/Chest Respiratory/Chest: Denies cough Gastrointestinal Gastrointestinal: Reports abdominal pain and nausea; Denies constipation, diarrhea or vomiting Genitourinary Genitourinary ED: Reports other Details: Decreased urination ; Denies dysuria or hematuria Musculoskeletal Musculoskeletal: Denies arthralgias or myalgias Integumentary Denies rash Neurologic Neurologic: Denies headache(s) or weakness Psychiatric Psychiatric: Denies anxiety EXAM Physical Exam Const Vital Signs: 05/03/23 20:57 05/04/23 00:53 Temperature 97.3 F L Temperature Source Temporal Pulse Rate 95 65 Respiratory Rate 16 18 Blood Pressure 148/94 H Blood Pressure Mean 112 Pulse Ox 98 95 Oxygen Delivery Method Room Air Room Air Positive well nourished and well developed General Appearance ED: well developed HEENT Reports moist mucous membranes Neck supple Resp normal respiratory effort and clear to auscultation bilaterally Cardio regular rate, regular rhythm and no murmurs GI GI Narrative: Mildly protuberant abdomen, no fluid wave appreciated. Auscultation: normoactive bowel sounds Palpation: soft and tender epigastric and RUQ; Negative for guarding Extremity full ROM General Extremety ED: Negative for edema General Extremity: Negative for edema Neuro moves all extremities Sensorium / Orientation: alert, oriented to person, oriented to place and oriented to time Psych mental status grossly normal and thought process normal MDM MDM MDM Narrative Medical decision making narrative: Patient evaluated for ongoing/recurrent abdominal pain. States it is epigastric region. He was seen in our ER 3 days ago and diagnosed with chronic pancreatitis flare. He did not have imaging at this time. He had a mildly uprising lipase however it was not significantly elevated. Also mild leukocytosis which is chronic for him. Patient has been taking Percocet and Zofran with minimal relief of his symptoms. Has been adhering to a liquid diet. Workup today shows a downtrending white blood cell count of 11.5. He is afebrile with normal vital signs. CBC and CMP largely normal. He does have a mild bump in his creatinine of 1.38 (baseline creatinine of 0.9-1.1). This is not an AGA. He is given IV fluids in the ER. Initially he is given morphine and Benadryl as well as Zofran for symptom control. Urinalysis is not consistent with dehydration or infection. His lipase is actually completely normal today at 60. Due to his continued pain and no recent CT of his abdomen pelvis (last 1 was done 01/22/2023) he is agreeable with a repeat CT of the abdomen pelvis. The CT shows left lower lobe airspace consolidation/atelectasis which may represent pneumonia. Patient notes that for about a month he has had some mild shortness of breath and cough. He is not hypoxic, will cover for aspiration with Augmentin. He also has findings suggestive of possible fecal stasis within the transverse colon and ascending colon. There is some abnormal appearing changes of the descending and sigmoid colon with thickening monteiro which may be result of previous infection or inflammatory colitis. He is not particularly tender in that area. If there is some inflammation/infection however Augmentin should cover for this as well. Patient is counseled that he needs to take MiraLAX to help move his bowels. Patient is interested in admission and case is discussed with hospitalist who also evaluates the patient. She is more familiar with the patient states he actually is better than he has in prior admissions. Patient has close outpatient follow-up with his PCP tomorrow. Discussed that all of these he is can be treated outpatient and patient is now agreeable with discharge from the hospital and outpatient follow-up. Is given an additional 24 hours of pain medicine with oxycodone but counseled that we will not prescribe more. Is given a refill of his Zofran and placed on a course of Augmentin to cover for possible aspiration pneumonia as noted above. Patient is agreeable with this plan of care. Discharged home in stable and improved condition. Lab Data Attestation: I reviewed the patient's lab results. Labs: Laboratory Results - last 24 hr 05/03/23 05/03/23 21:07 21:10 WBC 11.5 H RBC 4.21 L Hgb 13.1 Hct 39.2 L MCV 93.1 MCH 31.1 MCHC 33.4 D RDW Std Deviation 43.7 RDW Coeff of Armin 12.8 Plt Count 214 MPV 9.4 Immature Gran % (Auto) 0.300 Neut % (Auto) 63.8 Lymph % (Auto) 29.0 [place] % (Auto) 4.7 Eos % (Auto) 1.9 Baso % (Auto) 0.3 Absolute Neuts (auto) 7.3 Absolute Lymphs (auto) 3.33 Nucleated RBC % 0 Sodium 136 Potassium 4.0 Chloride 99 Carbon Dioxide 29.0 Anion Gap 8 BUN 13 Creatinine 1.37 H Estim Creat Clear Calc 60.69 Est GFR (MDRD) Af Amer 69 Est GFR (MDRD) Non-Af 57 L BUN/Creatinine Ratio 9.5 L Glucose 242 H Calcium 9.8 Total Bilirubin 0.40 AST 14 L ALT 18 Alkaline Phosphatase 72 Total Protein 7.9 Albumin 4.0 Globulin 3.9 Albumin/Globulin Ratio 1.0 Lipase 60 Urine Color Yellow Urine Clarity Clear Urine pH 7.0 Ur Specific [place] 1.005 Urine Protein 30 H Urine Glucose (UA) 100 H Urine Ketones Negative Urine Occult Blood Negative Urine Nitrite Negative Urine Bilirubin Negative Urine Urobilinogen Normal Ur Leukocyte Esterase Negative Urine RBC 0 SEEN Urine WBC 0 SEEN Ur Squamous Epith Cells 0 SEEN Urine Bacteria 0 SEEN Urine Mucus 0 SEEN Radiography Diagnostic Testing: Clinical Impression(s) from Imaging Studies Abdomen/Pelvis CT 05/03/23 23:25 IMPRESSION: 1. Left lower lobe airspace consolidation atelectasis may represent pneumonia. 2. Right basilar subsegmental atelectasis. 3. Findings suggest possible fecal stasis within the transverse colon and ascending colon. This may be caused in part by what appears to be some abnormal appearing descending and sigmoid colon where there are some thickened monteiro. This may be the result of previous infectious or inflammatory colitis. Electronically Signed: Estela Dennison MD at 0:54 EDT , Discharge Plan Triage Chief Complaint: Abd Pain ED Provider: Lynnette Julian Dx/Rx/DC Orders Clinical Impression: LLL pneumonia, Abdominal pain, Constipation Instructions: ED Constipation (Adult), ED Pneumonia (Adult) Prescriptions: New amoxicillin-pot clavulanate 875-125 mg tablet 1 tab PO BID Qty: 14 0RF oxycodone 5 mg tablet 5 mg PO Q6H PRN (Reason: pain) 1 Days Qty: 4 0RF ondansetron 4 mg tablet,disintegrating 4 mg PO Q8H PRN PRN (Reason: Nausea) Qty: 10 0RF No Action amitriptyline 25 mg tablet 25 mg PO QHS gabapentin 300 mg capsule 300 mg PO BID levetiracetam 500 mg tablet 500 mg PO BID Qty: 60 6RF levocarnitine 330 mg tablet 330 mg PO BID Qty: 60 6RF Rx Instructions: must administer with a meal/food cholecalciferol (vitamin D3) 5,000 capsule 1 cap PO DAILY pantoprazole 40 mg Tablet,Delayed Release (Dr/Ec) 40 mg PO DAILY pravastatin 40 mg Tablet 20 mg PO QHS metformin 500 MG tablet 500 mg PO BID Qty: 0 0RF Hold Instructions: Hold for 3 days aspirin 81 mg Tablet,Delayed Release (Dr/Ec) 81 mg PO DAILY losartan 25 mg tablet 25 mg PO DAILY escitalopram oxalate 10 mg tablet 10 mg PO DAILY loratadine 10 MG capsule 10 mg PO DAILY promethazine [promethazine] 25 mg tablet 25 mg PO Q6H PRN PRN (Reason: Nausea) Qty: 10 0RF ondansetron [ondansetron] 4 mg tablet,disintegrating 4 mg PO Q8H PRN PRN (Reason: Nausea) Qty: 10 0RF hydrochlorothiazide 25 mg tablet 25 mg PO DAILY Qty: 30 11RF Hold Instructions: Hold for 3 days and start with 12.5 mg, half tablet daily. amlodipine 10 mg tablet 10 mg PO DAILY Qty: 90 3RF ursodiol 250 mg tablet 250 mg PO BID Qty: 180 1RF Primary Care Provider: Lobito Maldonado Referrals: Lobito Maldonado MD [Primary Care Provider] - Activity Restrictions/Additional Instructions: Your lab work is largely normal today. You do need to drink more water. No signs of pancreatitis at this time. You do have an area of questionable pneumonia versus incomplete expansion of the left lower lung (atelectasis). You also have some nonspecific inflammation of the descending and sigmoid colon where there is some thickening of the monteiro which could be from prior infection/colitis or inflammation. Will place on antibiotics to cover for these things. In addition you do have a large amount of stool in the ascending and transverse colon (the first 2 part). Please take MiraLAX for this. You can get this [id number]. Follow-up with your primary care doctor scheduled for tomorrow. Disposition Disposition: Home, Self Care
--- NOTE | 2023-05-03 23:25 | CT_ITS ---
STUDY: CT ABDOMEN AND PELVIS WITH CONTRAST REASON FOR EXAM: Male, 58 years old patient with upper abdominal pain. RADIATION DOSAGE (If Supplied By Facility): CTDIvol = ( 14.66 ) mGy, DLP = ( 1046.61 ) mGycm TECHNIQUE: Transaxial images were obtained from the dome of the diaphragm to the symphysis pubis without oral contrast. 100 ml of IV Isovue-300 was administered. Sagittal and coronal images were reconstructed. Individualized dose optimization techniques were used for this CT. COMPARISON: CT of abdomen and pelvis dated January 22, 2023. FINDINGS: There is bilateral gynecomastia. There is left lower lobe airspace consolidation and atelectasis suggesting possible pneumonia. There is also right basilar subsegmental atelectasis. The visualized portions of the heart are within normal limits. Normal liver. There is non-visualization of the gallbladder, which may be secondary to either contraction or a prior cholecystectomy. Normal spleen. Normal pancreas. Normal bilateral adrenal glands. Normal right kidney. There is a left-sided renal cyst measuring 1.7 cm in greatest dimension. Normal visualized stomach. There is no obvious dilated bowel, ascites or pneumoperitoneum. Small bowel has a grossly normal appearance. There is a large amount of stool in ascending colon and transverse colon. Descending colon is mostly nondistended with nonspecific thickening of the monteiro of the colon. There are numerous diverticula within the descending colon and sigmoid colon. There is also some thickening of the monteiro of the sigmoid colon. The appendix is visualized and appears normal. There is minimal atherosclerotic calcification of the abdominal aorta, without a demonstrated aneurysm. There is venous distention of the inferior vena cava (IVC). Normal retroperitoneum. Urinary bladder is very distended. There is enlargement of the prostate gland. Normal abdominal wall. Normal osseous structures. CT/Abdomen/Pelvis W IV Cont ONLY IMPRESSION: 1. Left lower lobe airspace consolidation atelectasis may represent pneumonia. 2. Right basilar subsegmental atelectasis. 3. Findings suggest possible fecal stasis within the transverse colon and ascending colon. This may be caused in part by what appears to be some abnormal appearing descending and sigmoid colon where there are some thickened monteiro. This may be the result of previous infectious or inflammatory colitis. Electronically Signed: Estela Dennison MD at 0:54 EDT ,
[2023-05-04 00:53] VITALS: PULSE 65; RESP 18; O2SAT 95
[2023-05-04 01:32] VITALS: O2SAT 96
--- NOTE | 2023-05-04 01:51 | PCM.HOSP.N ---
Hospitalist Note The patient is a 58 y/o M w/ PMHx: Anxiety and Depression, HTN, HLD, Diabetes mellitus type II w/ chronic neuropathy, Chronic pain syndrome, Former tobacco use, GERD w/ Hx GI bleed w/ Gastric ulcer, Hx TIA/CVA, Seizure disorder, BPH, Hx EtOH abuse with history of liver fibrosis, Hx recurrent Acute Pancreatitis, recent ED evaluation 04/30/23 with onset epigastric pain with nausea and emesis with lipase 350 with chronic elevation with improvement of pain and discharge to home with nausea/pain regimen who now re-presents to the [facility] ED on 05/04/23 with history of reporting continued liquid diet only however he feels as though he is not maintained appropriate hydration, urinating less and continued epigastric abdominal discomfort which radiates to the right under his ribs with some nausea without emesis in addition to mild dyspnea and sinus issues which he reports ongoing x 1 month prompting return for repeat evaluation. Workup in the ED included T97.3, heart rate initially 95 with most recent repeat 65, BP 148/94, respiratory rate 16, 98% on room air, CBC with WC 11.5, 113.1, platelet 214 without marked shift, CMP with BUN/creatinine 13/1.37, glucose 242, hepatic profile unremarkable, lipase 60, urinalysis with protein 30, glucose 100 and specific remedy of note 1.005 otherwise unremarkable, CT abdomen and pelvis with contrast with left lower lobe airspace consolidation atelectasis, right basilar subsegmental atelectasis, findings suggestive of possible fecal stasis with transverse colon and ascending colon possibly caused in part by what appears to be some abnormal appearing descending and sigmoid colon where there are some thickened monteiro possibly result of prior infectious or inflammatory colitis and of note a normal-appearing pancreas. In the ED patient ministered 1 L normal saline, Zofran 4 mg IV x 1, morphine 6 mg IV x 1 and diphenhydramine 25 mg IV x 1. Upon hospitalist evaluation discussed findings and reviewed that he was clinically stable, well appearing, abdominal soft, NTTP, ND with distracted evaluation, lungs CTA BL despite CT findings at bases with good inspiratory effort and no worsened discomfort to the R upper quadrant/flank with this process. He had resolution of abdominal pain and noted the R sided discomfort could certainly be referred secondary to the consolidation. Discussed his constipation and encouraged appropriate hydration and consider of miralax as patient notes usually drinks a specific tea. He feels comfortable going home and from discussion with Dr. Julian he will be sent home on augmentin with PCP visit already in place within the next 24 hours.
[2023-05-04 01:55] VITALS: PULSE 86; RESP 18; O2SAT 94
[2023-05-04] MEDS: Amox/Clavulanate 875 MG Tablet PO (02:11)
[2023-05-04] MEDS: Ketorolac 15 MG/ML Vial IV (02:11)
== END 2023-05-04 02:56 | disposition home or self-care (01) ==
PROVIDERS: Emergency Provider Emergency Medicine; PCP Internal Medicine; Visit Provider Emergency Medicine
DX: J18.9 Pneumonia, unspecified organism (principal); E11.40 Type 2 diabetes mellitus with diabetic neuropathy, unspecified; G40.909 Epilepsy, unspecified, not intractable, without status epilepticus; R10.13 Epigastric pain; R11.0 Nausea; E78.5 Hyperlipidemia, unspecified; I10 Essential (primary) hypertension; K59.00 Constipation, unspecified; F41.9 Anxiety disorder, unspecified; G89.4 Chronic pain syndrome; Z79.82 Long term (current) use of aspirin; Z79.899 Other long term (current) drug therapy; Z87.891 Personal history of nicotine dependence
CPT/HCPCS: 74177; 80053; 81001; 83690; 85025; 99283; J7030; Q9967; A4216; J2405

== ENCOUNTER 2023-08-09 03:24 | Emergency (ER) | payer MEDICARE, MEDICAID, SELFPAY ==
[2023-08-09 03:27] VITALS: BP 148/97; PULSE 98; RESP 12; TEMP 36.3; O2SAT 99; BMI 27.3
--- NOTE | 2023-08-09 03:31 | EDS_ITS ---
HPI History of Present Illness Chief Complaint: Abd Pain [facility] Medical History Alcohol abuse Anxiety and depression Cancer Constipation Diabetes Essential (primary) hypertension Family history of cerebral aneurysm Former tobacco use Gastric ulcer GERD (gastroesophageal reflux disease) GI bleed Glaucoma Hyperlipidemia Liver fibrosis Myocardial infarct Neck pain Polyneuropathy PSA elevation PTSD (post-traumatic stress disorder) Seizure disorder Stroke/cerebrovascular accident TIA (transient ischemic attack) Vision loss of left eye Vision loss of right eye Home Medications amitriptyline 25 mg tablet 25 mg PO QHS depression 07/03/18 [History Last Taken 11/27/22] cholecalciferol (vitamin D3) 125 mcg (5,000 unit) capsule 1 cap PO DAILY supplement 11/09/18 [History Last Taken 11/28/22] hydrochlorothiazide 25 mg tablet 25 mg PO DAILY blood pressure/heart #30 tabs 06/05/20 [Rx Last Taken 11/28/22] gabapentin 300 mg capsule 300 mg PO BID nerve pain 10/06/20 [History Last Taken 11/28/22] pantoprazole 40 mg tablet,delayed release 40 mg PO DAILY gerd 02/27/22 [History Last Taken 11/28/22] pravastatin 40 mg tablet 20 mg PO QHS cholesterol 02/27/22 [History Last Taken 11/27/22] metformin 500 mg tablet 500 mg PO BID diabetes #0 tabs 03/04/22 [Rx Last Taken 11/28/22] aspirin 81 mg tablet,delayed release 81 mg PO DAILY heart health 07/04/22 [History Last Taken 11/28/22] escitalopram oxalate 10 mg tablet 10 mg PO DAILY depression 07/04/22 [History Last Taken 11/28/22] loratadine 10 mg capsule 10 mg PO DAILY allergies 07/04/22 [History Last Taken 11/28/22] losartan 25 mg tablet 25 mg PO DAILY blood pressure 07/04/22 [History Last Taken 11/28/22] levetiracetam 500 mg tablet 500 mg PO BID seizures #60 tabs 02/02/23 [Rx Last Taken Unknown] levocarnitine 330 mg tablet 330 mg PO BID #60 tabs 02/02/23 [Rx Last Taken Unknown] ursodiol 250 mg tablet 250 mg PO BID liver fibrosis #180 tabs 03/09/23 [Rx Last Taken Unknown] ondansetron 4 mg disintegrating tablet 4 mg PO Q8H PRN PRN Nausea #10 tabs 04/30/23 [Rx Last Taken Unknown] promethazine 25 mg tablet 25 mg PO Q6H PRN PRN Nausea #10 TABLETS 04/30/23 [Rx Last Taken Unknown] amoxicillin 875 mg-potassium clavulanate 125 mg tablet 1 tab PO BID #14 tabs 05/04/23 [Rx Last Taken Unknown] ondansetron 4 mg disintegrating tablet 4 mg PO Q8H PRN PRN Nausea #10 tabs 05/04/23 [Rx Last Taken Unknown] oxycodone 5 mg tablet 5 mg PO Q6H PRN pain 1 day #4 tabs 05/04/23 [Rx Last Taken Unknown] amlodipine 10 mg tablet 10 mg PO DAILY blood pressure #90 tabs 06/26/23 [Rx Last Taken Unknown] ondansetron 4 mg disintegrating tablet 4 mg PO Q8H PRN PRN Nausea 3 days #9 tabs 08/09/23 [Rx Last Taken Unknown] oxycodone 5 mg capsule 5 mg PO Q6H PRN pain 3 days #12 caps 08/09/23 [Rx Last Taken Unknown] Allergy/AdvReac Type Severity Reaction Status Date / Time Iodinated Contrast Media Allergy Mild Rash Verified 08/09/23 04:35 hydromorphone [From Dilaudid] Allergy Itching Verified 08/09/23 03:27 lisinopril Allergy Angioedema Verified 08/09/23 03:27 cyclobenzaprine AdvReac Severe Skin Verified 08/09/23 03:27 crawling hydrocodone bitartrate AdvReac Itching Verified 08/09/23 03:27 [From Vicodin] morphine AdvReac Itching Verified 08/09/23 03:27 tramadol AdvReac Itching Verified 08/09/23 03:27 Family History Mother Heart disease Sister Cerebral aneurysm Father Diabetes Kidney disease Anxiety and depression Surgical History History of cholecystectomy (12/2013) History of left heart catheterization (10/31/11) Social History household members: none Smoking Status: Former smoker Tobacco: How many years used: 7 Electronic Cigarette Use: not used alcohol intake: former details: 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 substance use type: does not use caffeine: No robbin/zoroastrian: Moravian seatbelt use: always EXAM Physical Exam Const Vital Signs: 08/09/23 03:27 Temperature 97.3 F L Temperature Source Temporal Pulse Rate 98 Respiratory Rate 12 Blood Pressure 148/97 H Blood Pressure Mean 114 Pulse Ox 99 Oxygen Delivery Method Room Air [facility] Medical decision making narrative: HISTORY OF PRESENT ILLNESS: 58-year-old male here with abdominal pain concern for pancreatitis. Notes diffuse abdominal pain. Notes he drink alcohol yesterday. REVIEW OF SYSTEMS: Pertinent positives: Abdominal pain Pertinent negatives: Chest pain, shortness of breath PHYSICAL EXAM: Nursing triage notes reviewed, Vital signs reviewed Constitutional: please see mdm HENT: MMM Eyes: Pupils equal round and reactive to light, Extraocular muscles intact Neck: No stridor, no JVD, full neck ROM Lungs: Clear to auscultation, No wheezing or rales. No increased work of breathing, no conversational dyspnea, no accessory muscle use, no nasal flaring. No respiratory distress noted Heart: Regular rate and rhythm, No murmurs, No rubs and No gallops, 2+ distal pulses (radial, femoral, posterior tibial) in all extremities Abdomen: Soft, diffuse tenderness rigidity, rebound or guarding, no obvious peritoneal signs, no palpable pulsatile abdominal masses, no auscultated abdominal bruit : No CVAT Extremities: No edema Neuro: No focal neurological deficits, cranial nerves II through XII intact, 5/5 strength in all extremities. Intact sensation to light touch in all extremities, 2+ reflexes bilateral patella tendons. Normal gait. No ataxia. Skin: No rash or lesions noted MEDICAL DECISION MAKING: Chief Complaint: Abdominal pain External records reviewed: CT scan of the abdomen pelvis from 05/03/2023 shows No evidence of acute surgical process Factors affecting care: Pancreatitis, abdominal pain, hyponatremia, hypertension Social determinants of health: History of alcohol abuse History obtained from others: none Consults: none [facility] Narrative: Was hemodynamically stable, afebrile, nontoxic-appearing. Abdominal exam with diffuse TTP. I considered the following differential diagnosis: Pancreatitis, hepatobiliary obstruction, GERD, obstruction, perforation ALL IMAGES (IF OBTAINED) HAVE BEEN PERSONALLY REVIEWED AND INTERPRETED BY MYSELF. BMP without evidence of significant electrolyte abnormalities, no anion gap, no acute kidney injury. Lipase elevated consistent with pancreatic inflammation LFTs show no evidence of hepatobiliary pathology. CBC without leukocytosis, severe anemia, no thrombocytopenia. CT scan of the abdomen pelvis shows evidence of pancreatitis. No evidence of acute surgical pathology EKG with normal sinus rhythm, left ax deviation, no STEMI Troponin is negative, no evidence of myocardial ischemia The synthesis Of the patient's history, physical exam, labs images are consistent with acute pancreatitis exacerbated by alcohol use. Low suspicion for gallstone pancreatitis given the patient had his gallbladder removed in the past. Will give oral oxycodone, Zofran, Tylenol ibuprofen instructions, strict return precautions. The patient and/or family, caregivers express understanding. The patient and/or family, caregivers agrees with the plan. Shared decision making: I will have a discussion with the patient and or visitors regarding risk/benefits of further testing or admission. They will be made aware of of the risk/benefits inherent in this decision they will be given the opportunity to voice understanding. Total critical care time today provided was at least 0 minutes. This excludes separately billable procedures. Critical care time (if documented) is secondary to the patient having high probability of clinically significant/life threatening deterioration in the patient's condition which required my urgent intervention. Impression: 1. Abdominal pain 2. Acute pancreatitis 3. History of alcohol abuse Dispo: Discharge Lab Data Attestation: I reviewed the patient's lab results. Labs: Laboratory Results - last 24 hr 08/09/23 03:36 WBC 9.8 RBC 4.26 L Hgb 13.3 Hct 39.0 L MCV 91.5 MCH 31.2 MCHC 34.1 RDW Std Deviation 41.3 RDW Coeff of Armin 12.5 Plt Count 180 MPV 9.7 Immature Gran % (Auto) 0.400 Neut % (Auto) 50.2 Lymph % (Auto) 39.7 [place] % (Auto) 6.6 Eos % (Auto) 2.4 Baso % (Auto) 0.7 Absolute Neuts (auto) 4.9 Absolute Lymphs (auto) 3.91 Nucleated RBC % 0 Sodium 134 L Potassium 3.6 Chloride 101 Carbon Dioxide 23.0 Anion Gap 10 BUN 11 Creatinine 0.96 Estim Creat Clear Calc 86.60 Est GFR (MDRD) Af Amer 104 Est GFR (MDRD) Non-Af 86 BUN/Creatinine Ratio 11.5 Glucose 222 H Calcium 8.8 Total Bilirubin 0.50 Direct Bilirubin 0.15 AST 11 L ALT 17 Alkaline Phosphatase 69 Troponin I High Sens 13 Total Protein 7.4 Albumin 3.8 Globulin 3.6 Lipase 102 H Radiography Diagnostic Testing: Clinical Impression(s) from Imaging Studies Abdomen/Pelvis CT 08/09/23 03:37 IMPRESSION: There is a subtle hazy appearance of the fat adjacent to the tail the pancreas raising concern for the possibility of acute pancreatitis. Recommend Correlation with laboratory values. Otherwise there is a decompressed appearance of the stomach with a thickened appearance of the stomach wall similar to the prior studies suggesting gastritis. Interval greater tortuosity of the midline mesentery with a few nonspecific subcentimeter lymph nodes. Constipation. Overdistended bladder recommend voiding or catheterization. Benign-appearing stable left renal cyst. Mild hepatic steatosis stable hepatic cyst measuring 8 mm. No appendicitis. The gallbladder is not visualized and has likely been surgically removed.. Electronically Signed: Nae Angulo MD at 5:14 EST , ADDENDUM: 08/09/23 0524 IMPRESSION: There is a subtle hazy appearance of the fat adjacent to the tail the pancreas raising concern for the possibility of acute pancreatitis. Recommend Correlation with laboratory values. Otherwise there is a decompressed appearance of the stomach with a thickened appearance of the stomach wall similar to the prior studies suggesting gastritis. Interval greater tortuosity of the midline mesentery with a few nonspecific subcentimeter lymph nodes. Constipation. Overdistended bladder recommend voiding or catheterization. Benign-appearing stable left renal cyst. Mild hepatic steatosis stable hepatic cyst measuring 8 mm. No appendicitis. The gallbladder is not visualized and has likely been surgically removed.. N.B. : The above Results were Read Back by Nae Angulo MD to Neftali Dickson MD, and understanding confirmed on 08/09/2023 05:17:37 (ET). Electronically Signed: Nae Angulo MD at 5:14 EST , Discharge Plan Triage Chief Complaint: Abd Pain ED Provider: Neftali iDckson Dx/Rx/DC Orders Instructions: Pancreatitis Acute Dc Prescriptions: New oxycodone 5 mg capsule 5 mg PO Q6H PRN (Reason: pain) 3 Days Qty: 12 0RF ondansetron 4 mg tablet,disintegrating 4 mg PO Q8H PRN PRN (Reason: Nausea) 3 Days Qty: 9 0RF No Action amitriptyline 25 mg tablet 25 mg PO QHS gabapentin 300 mg capsule 300 mg PO BID levetiracetam 500 mg tablet 500 mg PO BID Qty: 60 6RF levocarnitine 330 mg tablet 330 mg PO BID Qty: 60 6RF Rx Instructions: must administer with a meal/food cholecalciferol (vitamin D3) 5,000 capsule 1 cap PO DAILY pantoprazole 40 mg Tablet,Delayed Release (Dr/Ec) 40 mg PO DAILY pravastatin 40 mg Tablet 20 mg PO QHS metformin 500 MG tablet 500 mg PO BID Qty: 0 0RF Hold Instructions: Hold for 3 days aspirin 81 mg Tablet,Delayed Release (Dr/Ec) 81 mg PO DAILY losartan 25 mg tablet 25 mg PO DAILY escitalopram oxalate 10 mg tablet 10 mg PO DAILY loratadine 10 MG capsule 10 mg PO DAILY promethazine [promethazine] 25 mg tablet 25 mg PO Q6H PRN PRN (Reason: Nausea) Qty: 10 0RF ondansetron [ondansetron] 4 mg tablet,disintegrating 4 mg PO Q8H PRN PRN (Reason: Nausea) Qty: 10 0RF amoxicillin-pot clavulanate 875-125 mg tablet 1 tab PO BID Qty: 14 0RF ondansetron 4 mg tablet,disintegrating 4 mg PO Q8H PRN PRN (Reason: Nausea) Qty: 10 0RF oxycodone 5 mg tablet 5 mg PO Q6H PRN (Reason: pain) 1 Days Qty: 4 0RF hydrochlorothiazide 25 mg tablet 25 mg PO DAILY Qty: 30 11RF Hold Instructions: Hold for 3 days and start with 12.5 mg, half tablet daily. ursodiol 250 mg tablet 250 mg PO BID Qty: 180 1RF amlodipine 10 mg tablet 10 mg PO DAILY Qty: 90 3RF Stand Alone Forms: ED Work / School Excuse Primary Care Provider: Lobito Maldonado Referrals: Lobito Maldonado MD [Primary Care Provider] - Activity Restrictions/Additional Instructions: Thank you for trusting us with your care today! Please take Tylenol (2 pills, 650 mg), ibuprofen (2 pills, 400 mg) every 6 hours as needed for pain and fever control. Please take oxycodone if the above regimen does not control your pain. Please take Zofran as needed for nausea and vomiting. Please return to the emergency department if your symptoms change or worsen. Specifically develop nausea vomiting if your pain is not controlled with the above pain regimen. Please refrain from drinking alcohol as this will exacerbate your underlying propensity for pancreatitis Please follow with your primary care physician for further outpatient evaluation and management. Disposition Disposition: Home, Self Care
--- NOTE | 2023-08-09 03:37 | CT_ITS ---
We are attempting to reach an attending provider to discuss findings. An addendum with communication details will be sent when the communication is complete. STUDY: CT ABDOMEN AND PELVIS WITH CONTRAST REASON FOR EXAM: Male, 58 years old. Epigastric abdominal pain RADIATION DOSAGE (If Supplied By Facility): CTDIvol = ( 14.39 ) mGy, DLP = ( 1073.50 ) mGycm TECHNIQUE: Transaxial images were obtained from the dome of the diaphragm to the symphysis pubis without oral contrast. IV 100mL Isovue-370 was administered. Sagittal and coronal images were reconstructed. This study was provided for interpretation 4:42 AM Individualized dose optimization techniques were used for this CT. COMPARISON: 06/14/2023 CT scan abdomen and pelvis FINDINGS: The visualized lung bases are unremarkable. The visualized portions of the heart are within normal limits. There is decreased attenuation of the liver consistent with steatosis. There is a low attenuating focus within the liver measuring 8 mm stable since prior study. There is non-visualization of the gallbladder, which may be secondary to either contraction or a prior cholecystectomy. Normal spleen. There is a subtle hazy appearance of the fat surrounding the pancreas. There is a visualized lymph node measuring 8 mm near the tail the pancreas and 8.5 mm near the body of the pancreas. Normal bilateral adrenal glands. Normal right kidney. The stable left renal cyst measuring 1.5 cm. There is a decompressed, thick-walled appearance of the stomach. This is similar to prior study. There is a tortuous appearance of the mesentery. There are a few nonspecific subcentimeter mesenteric lymph nodes. There is moderate stool within the colon. The appendix is visualized and appears normal. The aorta is partially calcified. Normal inferior vena cava. Normal retroperitoneum. The bladder is overdistended measuring 16.2 x 9.9 x 10.8 cm. Normal visualized prostate gland. Normal abdominal wall. Normal osseous structures. CT/Abdomen/Pelvis W IV Cont ONLY IMPRESSION: There is a subtle hazy appearance of the fat adjacent to the tail the pancreas raising concern for the possibility of acute pancreatitis. Recommend Correlation with laboratory values. Otherwise there is a decompressed appearance of the stomach with a thickened appearance of the stomach wall similar to the prior studies suggesting gastritis. Interval greater tortuosity of the midline mesentery with a few nonspecific subcentimeter lymph nodes. Constipation. Overdistended bladder recommend voiding or catheterization. Benign-appearing stable left renal cyst. Mild hepatic steatosis stable hepatic cyst measuring 8 mm. No appendicitis. The gallbladder is not visualized and has likely been surgically removed.. Electronically Signed: Nae Angulo MD at 5:14 EST ,
--- NOTE | 2023-08-09 03:38 | EKG12_ITS ---
Test Reason : DYSRHYTHMIA Blood Pressure : / mmHG Vent. Rate : 095 BPM Atrial Rate : 095 BPM P-R Int : 142 ms QRS Dur : 094 ms QT Int : 360 ms P-R-T Axes : 070 -05 028 degrees QTc Int : 452 ms Normal sinus rhythm Nonspecific T wave abnormality Abnormal ECG Confirmed by CHIP CADE, TAPAN ([id number]), editor producer ERNA STERN ([id number]) on 08/16/2023 10:46:12 AM Referred By: Confirmed By:TAPAN SAUNDERS MD
[2023-08-09] MEDS: Ondansetron 4 MG/2 ML Vial IV (03:43)
[2023-08-09] MEDS: 0.9% Normal Saline (1000mL) 1,000 ML 1000 ML IV (03:43)
[2023-08-09] MEDS: Ketorolac 15 MG/ML Vial IV (03:43)
[2023-08-09 04:14] LABS: AST(SGOT) 11 U/L (15-37); Alanine Aminotransfer ALT/SGPT 17 U/L (16-61); Albumin, Serum 3.8 g/dL (3.2-5.0); Alkaline Phosphatase 69 U/L (45-117); Anion Gap 10 (5-15); BUN 11 mg/dL (7-18); BUN/Creat Ratio 11.5 RATIO (10-20); Bilirubin, Direct 0.15 mg/dL (0.00-0.30); Calcium,Total 8.8 mg/dL (8.5-10.1); Chloride 101 mmol/L (98-107); Creatinine, Serum 0.96 mg/dL (0.70-1.30); EST Glomerular Filtration Rate 86 mL/min (>60); Est Glom Filt Rate - Afr Amer 104 mL/min (>60); Globulin 3.6 g/dL (2.2-4.2); Glucose 222 mg/dL (74-106); Lipase 102 U/L (13-75); Potassium 3.6 mmol/L (3.5-5.1); Protein, Total 7.4 g/dL (6.4-8.2); Sodium Level 134 mmol/L (136-145); Troponin-I HS 13 pg/mL (3.0-78.0)
[2023-08-09 04:29] LABS: Absolute Lymphocyte Count 3.91 X10^3/uL (0.83-4.51); Absolute Neutrophil Count 4.9 X10^3/uL (2.0-7.7); Basophil# 0.07 X10^3/uL; Basophil% 0.7 % (0-1); Eosinophil# 0.24 X10^3/uL; Eosinophils% 2.4 % (0-5); Hemoglobin 13.3 g/dL (13.0-16.5); Lymphocyte # 3.91 X10^3/ul (0.83-4.51); Lymphocyte % 39.7 % (19-41); Mean Corp Hgb Conc 34.1 g/dL (32-36); Mean Corpuscular Hgb 31.2 pg (27.0-32.0); Mean Corpuscular Volume 91.5 fL (80-94); Mean Platelet Vol. 9.7 fl (6.2-12.0); Monocyte# 0.65 X10^3/uL; Monocyte% 6.6 % (0-10); NRBC Flagged by Analyzer 0 % (0-5); Neutrophil # 4.93 X10^3/uL (2.7-7.7); Neutrophil % 50.2 % (47-70); Platelet Count 180 K/mm3 (150-450); RBC Distribution Width CV 12.5 % (11.6-14.6); RBC Distribution Width SD 41.3 fl (35.1-43.9); Red Blood Count 4.26 M/mm3 (4.6-6.2); White Blood Count 9.8 K/mm3 (4.4-11.0)
[2023-08-09] MEDS: DiphenhydrAMINE 50 MG/ML Syringe 25 MG IV (04:35)
[2023-08-09] MEDS: oxyCODONE 5 MG Tablet PO (05:30)
[2023-08-09 05:35] VITALS: BP 134/69; PULSE 82; RESP 16; O2SAT 98
== END 2023-08-09 05:37 | disposition home or self-care (01) ==
PROVIDERS: Emergency Provider Emergency Medicine; PCP Internal Medicine; Visit Provider Emergency Medicine
DX: K85.90 Acute pancreatitis without necrosis or infection, unspecified (principal); E11.42 Type 2 diabetes mellitus with diabetic polyneuropathy; Z87.891 Personal history of nicotine dependence; E78.5 Hyperlipidemia, unspecified; E87.1 Hypo-osmolality and hyponatremia; R74.8 Abnormal levels of other serum enzymes; I10 Essential (primary) hypertension; Z79.899 Other long term (current) drug therapy; Z86.59 Personal history of other mental and behavioral disorders
CPT/HCPCS: 74177; 80048; 80076; 83690; 84484; 85025; 93005; 96361; 96374; 96375; 99285; J7030; Q9967; A4216; J2405

== ENCOUNTER 2023-10-10 04:28 | Emergency (ER) | payer MEDICARE, MEDICAID, SELFPAY ==
[2023-10-10 04:28] VITALS: BP 116/85; PULSE 103; RESP 16; TEMP 36.6; O2SAT 97
[2023-10-10 04:32] VITALS: BP 129/88; PULSE 98; RESP 16; TEMP 36.6; O2SAT 98; BMI 28.2
--- OUTSIDE RECORDS SUMMARY | 2023-10-10 05:15 | XMS RPT_ITS | CCD ---
Author Name Unknown Address [address] [facility] [address] [place] [address] Organization [facility] Care Team Providers Care Wire Worker Name Role Phone Elvin Linares Unavailable Unavailable PROVIDER, UNKNOWN Unavailable Unavailable Natasha Zamudio Unavailable Unavailable Elvin Linares Unavailable Unavailable Elvin Linares Unavailable Unavailable Tara Wadsworth Unavailable Warren MEDICAL IMAGING DIRECTOR, [place] S Unavailable Blarustam AUTOMATION CONTROL TECHNICIAN.EVA, Souleymane COREA Primary Care Provider EUGENIO BENITEZ Attending UnavailSOULEYMANE Smith Primary Care Unavailable Lobito Mcmanus MD Primary Care Provider Warren MEDICAL IMAGING DIRECTOR, [place] S Unavailable Lobito Mcmanus MD Primary Care Provider Warren MEDICAL IMAGING DIRECTOR, Heather S Unavailable Warren MEDICAL IMAGING DIRECTOR, Heather S Unavailable Lobito Mcmanus MD Primary Care Provider Blarustam AUTOMATION CONTROL TECHNICIAN.EVA, Souleymane COREA Primary Care Provider RASHEED EPPS Attending Unavailable LOBITO MCMANUS Primary Care Unavailable LOBITO MCMANUS Referring Unavailable LOBITO MCMANUS Primary Care Unavailable LOBITO MCMANUS Referring Unavailable LOBITO MCMANUS Attending Unavailable LOBITO MCMANUS Primary Care Unavailable LOBITO MCMANUS Primary Care Unavailable THIAGO GALICIA Attending Unavailable LOBITO MCMANUS Referring Unavailable LOBITO MCMANUS Attending Unavailable LOBITO MCMANUS Primary Care Unavailable LOBITO MCMANUS Referring Unavailable LOBITO MCMANUS Primary Care Unavailable MCMANUS, OPAL Primary Care Unavailable MCMANUS, OPAL Attending Unavailable MCMANUS, OPAL Primary Care Unavailable MCMANUS, OPAL Primary Care Unavailable OLDER, ALIS Attending Unavailable JOEL, OPAL Referring Unavailable MCMANUS, OPAL Primary Care Unavailable MCMANUS, OPAL Referring Unavailable MCMANUS, OPAL Attending Unavailable MCMANUS, OPAL Primary Care Unavailable MCMANUS, OPAL Primary Care Unavailable OLDER, ALIS Attending Unavailable MCMANUS, OPAL Primary Care Unavailable MCMANUS, OPAL Referring Unavailable Allergies Allergy Classification Reported Allergen(s) Allergy Type Date of Onset Reaction(s) Facility (2 sources) Acetaminophen / HYDROcodone Drug Allergy 4 skin crawling [facility] Work Phone: (20 sources) cyclobenzaprine; Translations: [CYCLOBENZAPRINE] Drug Allergy 4 Itching [facility] Work Phone: (20 sources) Lisinopril; Translations: [LISINOPRIL] Drug Allergy 3 Swelling [facility] Work Phone: (20 sources) Acetaminophen / HYDROcodone; Translations: [HYDROCODONE-ACET AMINOPHEN] Drug Allergy 3 Swelling [facility] Work Phone: (20 sources) Morphinan opioid; Translations: [OPIOIDS - MORPHINE ANALOGUES] Drug Allergy 1 Itching [facility] (20 sources) traMADol; Translations: [TRAMADOL] Drug Allergy 6 Itching [facility] (1 source) Morphine; Translations: [MORPHINE] Drug Allergy 2 [facility] (8 sources) Iodinated Contrast Media; Translations: [IODINATED CONTRAST MEDIA] Drug Allergy 3 Itching [facility] Medications Current Medications Medication Drug Class(es) Dates Sig (Normalized) Sig (Original) gabapentin 300 mg oral capsule (20 sources) Anti-epileptic Agent Start: 10-19-2022 End: 10-24-2023 take 1 capsule by mouth twice daily gabapentin (NEURONTIN) 300 mg capsule Take 1 capsule by mouth two times a day for 120 days. 60 capsule 3 06/26/2023 10/24/2023 Active Completed/Discontinued Medications Medication Drug Class(es) Dates Sig (Normalized) Sig (Original) amitriptyline hydrochloride 25 mg oral tablet (20 sources) Tricyclic Antidepressant Start: 06-26-2023 take 1 tablet by mouth once daily at bedtime amitriptyline (ELAVIL) 25 mg tablet Take 1 tablet by mouth daily at bedtime. 30 tablet 3 06/26/2023 Active Problems Active Problems Problem Classification Problem Date Documented Date Episodic/Chronic Alcohol-related disorders (18 sources) Alcoholic fatty liver; Translations: [Alcoholic fatty liver] Onset: 03-01-2022 Chronic Anxiety disorders (20 sources) Posttraumatic stress disorder; Translations: [Post-traumatic stress disorder, unspecified] Onset: 03-10-2022 Chronic Cancer of prostate (20 sources) Malignant tumor of prostate; Translations: [Malignant neoplasm of prostate] Onset: 01-26-2021 05-16-2022 Chronic Cataract (2 sources) Bilateral senile combined form cataracts of eyes; Translations: [Combined forms of age-related cataract, bilateral] Onset: 02-21-2023 Chronic Conditions associated with dizziness or vertigo (1 source) Dizziness; Translations: [Dizziness and giddiness] Episodic Coronary atherosclerosis and other heart disease (20 sources) Coronary arteriosclerosis; Translations: [Coronary atherosclerosis] Onset: 09-25-2011 02-24-2014 Chronic Diabetes mellitus without complication (20 sources) Diabetes mellitus; Translations: [Type 2 diabetes mellitus without complication] Onset: 02-24-2014 02-24-2014 Chronic Disorders of lipid metabolism (20 sources) Mixed hyperlipidemia; Translations: [Mixed hyperlipidemia] Onset: 12-01-2020 12-01-2020 Chronic Epilepsy; convulsions (20 sources) Epilepsy, not refractory; Translations: [Epilepsy, unspecified, not intractable, without status epilepticus] Onset: 12-01-2020 Chronic Esophageal disorders (20 sources) Gastroesophageal reflux disease without esophagitis; Translations: [Gastro-esophageal reflux disease without esophagitis] Onset: 12-01-2020 12-01-2020 Chronic Essential hypertension (20 sources) Hypertensive disorder; Translations: [Essential hypertension] Onset: 10-28-2011 10-28-2011 Chronic Glaucoma (20 sources) Ocular hypertension, unspecified eye; Translations: [Ocular hypertension] Onset: 10-05-2021 10-05-2021 Chronic Immunizations and screening for infectious disease (2 sources) Vaccination needed; Translations: [Encounter for immunization] Episodic Mycoses (2 sources) Onychomycosis due to dermatophyte ; Translations: [Tinea unguium] Onset: 05-19-2023 05-19-2023 Episodic Nausea and vomiting (1 source) Nausea; Translations: [Nausea] Episodic Nutritional deficiencies (20 sources) Vitamin D deficiency; Translations: [Vitamin D deficiency, unspecified] Onset: 12-01-2020 12-01-2020 Chronic Other circulatory disease (1 source) Abnormal peripheral pulse; Translations: [Other specified symptoms and signs involving the circulatory and respiratory systems] 05-19-2023 Episodic Other connective tissue disease (1 source) Pain of toe of left foot; Translations: [Pain in left toe(s)] 05-19-2023 Episodic Other connective tissue disease (1 source) Pain of toe of right foot; Translations: [Pain in right toe(s)] 05-19-2023 Episodic Other eye disorders (20 sources) Optic cupping; Translations: [Glaucomatous optic atrophy, bilateral] Onset: 10-05-2021 10-05-2021 Chronic Other eye disorders (1 source) Meibomian gland dysfunction of bilateral eyes; Translations: [Meibomian gland dysfunction right eye, upper and lower eyelids] Episodic Other non-traumatic joint disorders (1 source) Hip pain; Translations: [Pain in left hip] Episodic Other upper respiratory disease (20 sources) Allergic rhinitis due to pollen; Translations: [Allergic rhinitis due to pollen] Onset: 12-01-2020 12-01-2020 Chronic Other upper respiratory infections (2 sources) Sore throat symptom; Translations: [Acute pharyngitis, unspecified] Episodic Pancreatic disorders (not diabetes) (20 sources) Recurrent pancreatitis; Translations: [Recurrent pancreatitis] Onset: 07-13-2022 08-21-2022 Chronic Pancreatic disorders (not diabetes) (1 source) Recurrent pancreatitis; Translations: [Acute pancreatitis without necrosis or infection, unspecified] Onset: 07-13-2022 08-21-2022 Episodic Pneumonia (except that caused by tuberculosis or sexually transmitted disease) (1 source) Pneumonia, unspecified organism; Translations: [Pneumonia of left lower lobe due to infectious organism] Onset: 06-05-2023 Episodic Retinal detachments; defects; vascular occlusion; and retinopathy (2 sources) Hypertensive retinopathy; Translations: [Hypertensive retinopathy, bilateral] Onset: 02-21-2023 Chronic Spondylosis; intervertebral disc disorders; other back problems (20 sources) Degeneration of thoracic intervertebral disc; Translations: [Other intervertebral disc degeneration, thoracic region] Onset: 10-21-2014 10-21-2014 Chronic Unclassified (4 sources) NO SHOW Onset: 06-05-2015 06-05-2015 Past or Other Problems Problem Classification Problem Date Documented Date Episodic/Chronic Cardiac dysrhythmias (1 source) Palpitations; Translations: [Palpitations] Onset: 02-26-2014 02-26-2014 Episodic Genitourinary symptoms and ill-defined conditions (20 sources) Lower urinary tract symptoms; Translations: [Unspecified symptoms and signs involving the genitourinary system] Onset: 10-15-2021 Episodic Nonspecific chest pain (1 source) Chest pain, unspecified; Translations: [Chest pain, unspecified] Onset: 10-28-2011 10-28-2011 Episodic Other aftercare (1 source) group home (current) use of insulin; Translations: [Type 2 diabetes mellitus without complication, with long-term current use of insulin (HCC)] Onset: 11-17-2020 Episodic Other eye disorders (1 source) Meibomian gland dysfunction right eye, upper and lower eyelids; Translations: [Meibomian gland dysfunction (MGD) of upper and lower lids of both eyes] Onset: 02-21-2023 Episodic Other eye disorders (1 source) Meibomian gland dysfunction left eye, upper and lower eyelids; Translations: [Meibomian gland dysfunction (MGD) of upper and lower lids of both eyes] Onset: 02-21-2023 Episodic Other non-traumatic joint disorders (8 sources) Pain in right hip joint; Translations: [Pain in right hip] Onset: 01-19-2015 01-19-2015 Episodic Other non-traumatic joint disorders (1 source) Pain in left hip; Translations: [Left hip pain] Onset: 08-19-2022 Episodic Other screening for suspected conditions (not mental disorders or infectious disease) (17 sources) Electrocardiogram abnormal; Translations: [Raised prostate specific antigen] Onset: 10-28-2011 10-28-2011 Episodic Spondylosis; intervertebral disc disorders; other back problems (20 sources) Cervical radiculopathy; Translations: [Radiculopathy, cervical region] Onset: 10-21-2014 10-21-2014 Episodic Sprains and strains (4 sources) Strain of neck muscle; Translations: [Strain of muscle, fascia and tendon at neck level, initial encounter] Onset: 10-21-2014 10-21-2014 Episodic Results Test Name Value Interpretation Reference Range Facil ity Vital Signs Date Time Vital Sign Value Performing Clinician Facility 06-09-2023 12:37-0400 Body weight 82.1 kg Alis Older AUTOMATION CONTROL TECHNICIAN.MEDICAL IMAGING DIRECTOR Work Phone: [facility] 06-09-2023 12:37-0400 Diastolic blood pressure 84 mm[Hg] Alis Older AUTOMATION CONTROL TECHNICIAN.MEDICAL IMAGING DIRECTOR Work Phone: [facility] 06-09-2023 12:37-0400 Heart rate 106 /min Alis Older AUTOMATION CONTROL TECHNICIAN.MEDICAL IMAGING DIRECTOR Work Phone: [facility] 06-09-2023 12:37-0400 Respiratory rate 18 /min Alis Older AUTOMATION CONTROL TECHNICIAN.MEDICAL IMAGING DIRECTOR Work Phone: [facility] 06-09-2023 12:37-0400 SaO2% (BldA) [Mass fraction] 96 % Alis Older AUTOMATION CONTROL TECHNICIAN.MEDICAL IMAGING DIRECTOR Work Phone: [facility] 06-09-2023 12:37-0400 Systolic blood pressure 122 mm[Hg] Alis Older AUTOMATION CONTROL TECHNICIAN.MEDICAL IMAGING DIRECTOR Work Phone: [facility] 02-06-2023 13:21-0400 Diastolic blood pressure 83 mm[Hg] Lobito Mcmanus MD Work Phone: [facility] 02-06-2023 13:21-0400 Heart rate 109 /min Lobito Mcmanus MD Work Phone: [facility] 02-06-2023 13:21-0400 Systolic blood pressure 121 mm[Hg] Lobito Mcmanus MD Work Phone: [facility] 02-06-2023 13:18-0400 Body weight 82.56 kg Lobito Mcmanus MD Work Phone: [facility] 02-06-2023 13:18-0400 Respiratory rate 16 /min Lobito Mcmanus MD Work Phone: [facility] 12-15-2022 11:49-0400 Body temperature 98.29 [degF] Emmanuel Fritz MD Work Phone: [facility] 12-15-2022 11:49-0400 Body weight 82.74 kg Emmanuel Fritz MD Work Phone: [facility] 12-15-2022 11:49-0400 Diastolic blood pressure 76 mm[Hg] Emmanuel Fritz MD Work Phone: [facility] 12-15-2022 11:49-0400 Heart rate 122 /min Emmanuel Fritz MD Work Phone: [facility] 12-15-2022 11:49-0400 Respiratory rate 18 /min Emmanuel Fritz MD Work Phone: [facility] 12-15-2022 11:49-0400 SaO2% (BldA) [Mass fraction] 98 % Emmanuel Fritz MD Work Phone: [facility] 12-15-2022 11:49-0400 Systolic blood pressure 120 mm[Hg] Emmanuel Fritz MD Work Phone: [facility] 11-07-2022 15:16-0500 Diastolic blood pressure 80 mm[Hg] Alis Older AUTOMATION CONTROL TECHNICIAN.MEDICAL IMAGING DIRECTOR Work Phone: [facility] 11-07-2022 15:16-0500 Systolic blood pressure 134 mm[Hg] Alis Older AUTOMATION CONTROL TECHNICIAN.MEDICAL IMAGING DIRECTOR Work Phone: [facility] 11-07-2022 15:04-0500 Body weight 86.18 kg Alis Older AUTOMATION CONTROL TECHNICIAN.MEDICAL IMAGING DIRECTOR Work Phone: [facility] 11-07-2022 15:04-0500 Heart rate 109 /min Alis Older AUTOMATION CONTROL TECHNICIAN.MEDICAL IMAGING DIRECTOR Work Phone: [facility] 11-07-2022 15:04-0500 Respiratory rate 18 /min Alis Vibha AUTOMATION CONTROL TECHNICIAN.MEDICAL IMAGING DIRECTOR Work Phone: [facility] 08-19-2022 16:10-0500 Body weight 86.64 kg Lobito Mcmanus MD Work Phone: [facility] 08-19-2022 16:10-0500 Diastolic blood pressure 87 mm[Hg] Lobito Mcmanus MD Work Phone: [facility] 08-19-2022 16:10-0500 Heart rate 106 /min Lobito Mcmanus MD Work Phone: [facility] 08-19-2022 16:10-0500 Respiratory rate 18 /min Lobito Mcmanus MD Work Phone: [facility] 08-19-2022 16:10-0500 Systolic blood pressure 129 mm[Hg] Lobito Mcmanus MD Work Phone: [facility] 05-16-2022 15:45-0400 Body temperature 97.3 [degF] Lobito Mcmanus MD Work Phone: [facility] 05-16-2022 15:45-0400 Body weight 85.64 kg Lobito Mcmanus MD Work Phone: [facility] 05-16-2022 15:45-0400 Diastolic blood pressure 78 mm[Hg] Lobito Mcmanus MD Work Phone: [facility] 05-16-2022 15:45-0400 Heart rate 104 /min Lobito Mcmanus MD Work Phone: [facility] 05-16-2022 15:45-0400 Respiratory rate 18 /min Lobito Mcmanus MD Work Phone: [facility] 05-16-2022 15:45-0400 Systolic blood pressure 124 mm[Hg] Lobito Mcmanus MD Work Phone: [facility] 03-10-2022 09:38-0400 Body temperature 97.81 [degF] Lobito Mcmanus MD Work Phone: [facility] 03-10-2022 09:38-0400 Body weight 87.73 kg Lobito Mcmanus MD Work Phone: [facility] 03-10-2022 09:38-0400 Diastolic blood pressure 82 mm[Hg] Lobito Mcmanus MD Work Phone: [facility] 03-10-2022 09:38-0400 Heart rate 84 /min Lobito Mcmanus MD Work Phone: [facility] 03-10-2022 09:38-0400 Respiratory rate 18 /min Lobito Mcmanus MD Work Phone: [facility] 03-10-2022 09:38-0400 Systolic blood pressure 130 mm[Hg] Lobito Mcmauns MD Work Phone: [facility] 06-08-2017 14:33-0400 BMI (Body Mass Index) 29.95 kg/m2 [facility] Work Phone: 06-08-2017 14:33-0400 BP Diastolic 70 mm[Hg] Tara [facility] Work Phone: 06-08-2017 14:33-0400 BP Diastolic 80 mm[Hg] Tara [facility] Work Phone: 06-08-2017 14:33-0400 BP Systolic 110 mm[Hg] Tara [facility] Work Phone: 06-08-2017 14:33-0400 BP Systolic 120 mm[Hg] [facility] Work Phone: 06-08-2017 14:33-0400 Height 175.26 cm [facility] Work Phone: 06-08-2017 14:33-0400 Pulse (Heart Rate) 80 /min [facility] Work Phone: 06-08-2017 14:33-0400 Respiratory Rate 20 /min Tara [facility] Work Phone: 06-08-2017 14:33-0400 Weight 91.99 kg Tara [facility] Work Phone: 07-05-2016 11:40-0400 BSA (Body Surface Area) 2.14 m2 [facility] Work Phone: Encounters Encounter Date Encounter Type Care Provider Facility Start: 08-29-2023 Refill Lobito pollack MD Work Phone: [facility] [place] Procedures Date Procedure Procedure Detail Performing Clinician Start: 06-09-2023 INFLUENZA VACCINE, A GE 6 MO - 64 YR, QUADRIVALENT (AFLURIA, FLULAVAL, FLUZONE) Alis Older AUTOMATION CONTROL TECHNICIAN.MEDICAL IMAGING DIRECTOR Work Phone: Start: 02-21-2023 Computerized ophthal marielena imaging optic nerve Thiago Galicia MD Work Phone: Start: 02-06-2023 Gluc bld gluc mntr d ev cleared fda spec home use Lobito Mcmanus MD Work Phone: Start: 12-15-2022 STREP A MOLECULAR (POC) Emmanuel Fritz MD Work Phone: Start: 03-10-2022 Adult depression scr eening assessment Lobito Mcmanus MD Work Phone: Start: 06-17-2019 Colonoscopy Souleymane easton AUTOMATION CONTROL TECHNICIAN.MEDICAL IMAGING DIRECTOR, DNP Work Phone: Start: 06-08-2017 End: 06-08-2017 Follow Up Appt 6 months Tonio Blair Start: 06-08-2017 End: 06-08-2017 SEMAJ Corrales MD Start: 07-05-2016 End: 07-05-2016 LIZ Corrales MD Start: 07-05-2016 End: 07-05-2016 Follow Up Appt 1 year Des Corrales MD Start: 06-30-2015 End: 06-30-2015 LIZ Corrales MD Start: 06-30-2015 End: 07-01-2015 Documentation of current medications Des Corrales MD Start: 06-30-2015 End: 06-30-2015 Follow Up Appt 1 year Des Corrales MD Start: 06-30-2015 End: 07-01-2015 Pedal pulse taking Des Corrales MD Start: 02-26-2014 End: 03-19-2014 *BMP Des Corrales MD Start: 02-26-2014 End: 02-26-2014 COMMERCIAL COUNSEL Des Corrales MD Start: 02-26-2014 End: 06-08-2017 Follow Up Appt 6 months Prema Brown RN Start: 02-26-2014 End: 02-26-2014 Follow Up Appt Other Des Corrales MD Start: 02-26-2014 End: 02-26-2014 Magnesium [Mass/volume] in Serum or Plasma Des Corrales MD Start: 02-26-2014 End: 06-08-2017 MMM Prema Brown RN Start: 02-26-2014 End: 02-26-2014 Thyrotropin [Units/volume] in Serum or Plasma Des Corrales MD Start: 02-26-2014 End: 02-26-2014 Thyroxine (T4) [Mass/volume] in Serum or Plasma Des Corrales MD Start: 03-26-2013 Adult depression scr eening assessment Souleymane Kelly APRN.MEDICAL IMAGING DIRECTOR, DNP Work Phone: Plan of Treatment Date Care Activity Detail Author Start: 03-26-2031 Urine microalbumin profile [facility] Start: 05-19-2027 PROSTATE CANCER SCRE ENING DISCUSSION PROSTATE CANCER SCREENING DISCUSSION [facility] Start: 11-17-2025 PROSTATE CANCER SCRE ENING DISCUSSION PROSTATE CANCER SCREENING DISCUSSION [facility] Start: 06-17-2024 Colonoscopy COLONOSCOPY [facility] Start: 06-17-2024 COLORECTAL CANCER SCREENING COLORECTAL CANCER SCREENING [facility] Start: 06-09-2024 Annual PCP Team Russian Teacher demian Disease Visit Annual PCP Team Chronic Disease Visit [facility] Start: 05-19-2024 3 comp foot exam completed DIABETIC FOOT EXAM [facility] Start: 05-04-2024 ANNUAL PCP TEAM LOCAL BULK DRIVER DEMIAN DISEASE VISIT ANNUAL PCP TEAM CHRONIC DISEASE VISIT [facility] Start: 05-04-2024 BP CONTROLLED (<130/80) BP CONTROLLE D (<130/80) [facility] Start: 05-04-2024 Hepatitis B screening URINE AL BUMIN:CREATININE RATIO [facility] Start: 02-22-2024 Hepatitis C antibody , confirmatory test DILATED RETINAL EXAM [facility] Start: 02-07-2024 ANNUAL PCP TEAM LOCAL BULK DRIVER DEMIAN DISEASE VISIT ANNUAL PCP TEAM CHRONIC DISEASE VISIT [facility] Start: 01-26-2024 Hepatitis B surface antibody level LDL CHOLESTEROL [facility] Start: 12-16-2023 BP CONTROLLED (<130/80) BP CONTROLLE D (<130/80) [facility] Start: 12-10-2023 ANNUAL PCP TEAM LOCAL BULK DRIVER DEMIAN DISEASE VISIT ANNUAL PCP TEAM CHRONIC DISEASE VISIT [facility] Start: 12-10-2023 BP CONTROLLED (<130/80) BP CONTROLLE D (<130/80) [facility] Start: 11-07-2023 ANNUAL PCP TEAM LOCAL BULK DRIVER DEMIAN DISEASE VISIT ANNUAL PCP TEAM CHRONIC DISEASE VISIT [facility] Start: 11-04-2023 Hemoglobin A1c/Hemoglobin.total in Blood HBA1C [facility] Start: 08-19-2023 ANNUAL PCP TEAM LOCAL BULK DRIVER DEMIAN DISEASE VISIT ANNUAL PCP TEAM CHRONIC DISEASE VISIT [facility] Start: 08-19-2023 COVID-19 VACCINE (5 - Booster) COVID-19 VACCINE (5 - Booster) [facility] Immunizations Immunization Date Immunization Notes Care Provider Fa cility 06-09-2023 influenza, injectabl e, quadrivalent, contains preservative Alis Older AUTOMATION CONTROL TECHNICIAN.MEDICAL IMAGING DIRECTOR Work Phone: [facility] 08-19-2022 pneumococcal Conjugate, unspecified formulation Lobito Mcmanus MD Work Phone: [facility] Work Phone: 08-19-2022 pneumococcal (PCV20) vaccine, 20 valent (PREVNAR 20) Lobito Mcmanus MD Work Phone: [facility] 07-13-2022 influenza, seasonal, injectable Lobito Mcmanus MD Work Phone: [facility] 05-03-2021 COVID-19 vaccine, fu ll dose (MODERNA) Lobito Mcmanus MD Work Phone: [facility] Work Phone: 04-12-2021 COVID-19 vaccine, fu ll dose (MODERNA) Lobito Mcmanus MD Work Phone: [facility] Work Phone: 03-26-2021 tetanus toxoid, reduced diphtheria toxoid, and acellular pertussis vaccine, adsorbed Lobito Mcmanus MD Work Phone: [facility] Work Phone: 06-25-2020 influenza, seasonal, injectable Souleymane Kelly APRN.MEDICAL IMAGING DIRECTOR, [facility] Work Phone: [facility] 06-25-2020 influenza, seasonal, injectable, preservative free Lobito Mcmanus MD Work Phone: [facility] Work Phone: 07-25-2018 influenza, injectabl e, quadrivalent, preservative free Souleymane Kelly APRN.MEDICAL IMAGING DIRECTOR, [facility] Work Phone: [facility] Work Phone: 06-24-2018 influenza, seasonal, injectable Lobito Mcmanus MD Work Phone: [facility] Work Phone: 06-24-2018 influenza, seasonal, injectable, preservative free Souleymane Kelly AUTOMATION CONTROL TECHNICIAN.MEDICAL IMAGING DIRECTOR, DNP Work Phone: [facility] Work Phone: 07-18-2016 influenza, seasonal, injectable Lobito Mcmanus MD Work Phone: [facility] Work Phone: 07-18-2016 influenza, seasonal, injectable, preservative free Souleymane Kelly APRN.MEDICAL IMAGING DIRECTOR, DNP Work Phone: [facility] Work Phone: 04-29-2015 influenza, seasonal, injectable, preservative free Souleymane Kelly APRN.MEDICAL IMAGING DIRECTOR, DNP Work Phone: [facility] Work Phone: Payers Date Payer Category Payer Medicare [id number] 2018 Medicare [id number] Medicaid [id number] 2017 Medicare [id number] 2017 Medicare [id number] 1965 Unknown [id number] Unknown Social History Date Type Detail Facility Start: 10-21-2014 End: 05-16-2022 Tobacco smoking status NHIS Ex-smoker [facility] Start: 10-21-2014 End: 02-06-2023 Cigarettes smoked current (pack per day) - Reported 0.5 [facility] Work Phone: Start: 10-21-2014 End: 05-16-2022 Tobacco use and exposure Smokeless tobacco non-user [facility] Start: 12-06-2021 Alcohol intake Current drinker of alcohol (finding) [facility] Start: 03-26-2013 End: 05-16-2022 Tobacco Comment Quit age 33 [facility] Start: 1965 Sex Assigned At Male [facility] Work Phone: Start: 11-26-2021 End: 05-16-2022 Exposure to SARS-CoV-2 (event) Not sure [facility] End: 09-25-2011 History of tobacco use Current smoker [facility] Start: 03-10-2022 End: 06-09-2023 Alcohol intake Ex-drinker (finding) [facility] Start: 03-10-2022 History SDOH Alcohol Frequency 1 [facility] Start: 03-10-2022 History SDOH Alcohol Comment quit 03/04/2022 [facility] End: 09-25-2011 History of tobacco use Cigarette Smoker [facility] Work Phone: Start: 03-10-2022 End: 02-06-2023 Alcohol Use Disorder Identification Test - Consumption [AUDIT-C] [facility] Work Phone: How often to you hav e a drink containing alcohol? Never [facility] Work Phone: Average Number of Drinks Not on file [facility] Work Phone: Start: 12-01-2020 Gender identity Identifies as male gender (finding) [facility] Work Phone: Start: 12-01-2020 Sexual orientation Heterosexual (finding) [facility] Work Phone: Clinical Notes 06-05-2015 to 08-29-2023 Telephone Encounter - Eden Macario LPN - 08/29/2023 9:22 AM ESTTelephone Encounter - Mariella Lenz RN - 08/21/2023 2:35 PM Alis Major APRN.EVA - 06/09/2023 12:44 PM EDT Note Date & Type Note Facility 08-29-2023 Miscellaneous Notes Patient has been identified by name and date of : Yes, Provider Dr. Mcmanus Date 08/29/23 Time 9:23 am Pharmacy phones for refill(s): Requested Prescriptions Pending Prescriptions Disp Refills magnesium oxide (MAG-OX) 400 mg (241.3 mg magnesium) tablet 180 tablet 1 Sig: Take 1 tablet by mouth two times a day. Date of last office visit in primary care: 06/09/2023 Date of next office visit in primary care: 10/24/2023 Last 2 Encounter Wt Readings: Date: Wt: 06/09/2023 82.1 kg (181 lb) 05/04/2023 83.5 kg (184 lb) Previous labs/tests for medication: Not applicable Thank you. Eden Macario LPN. documented in this encounter [facility] 08-21-2023 Miscellaneous Notes Patient has been identified by name and date of : Yes, Mariella Lenz RN Date 08/21/2023 Time Pharmacy phones for refill(s): Requested Prescriptions Pending Prescriptions Disp Refills losartan (COZAAR) 25 mg tablet 90 tablet 1 Sig: Take 1 tablet by mouth once daily. Date of last office visit in primary care: 06/09/2023 Date of next office visit in primary care: 10/24/2023 Last 2 Encounter Wt Readings: Date: Wt: 06/09/2023 82.1 kg (181 lb) 05/04/2023 83.5 kg (184 lb) Previous labs/tests for medication: Blood Pressure: BUN (mg/dL) Date Value 01/25/2023 16 05/21/2021 14 Sodium (mmol/L) Date Value 01/25/2023 133 05/21/2021 137 Last 1 Encounter BP Readings: Date: BP: 06/09/2023 122/84 Liver Function: ALT (U/L) Date Value 01/25/2023 19 05/21/2021 63 AST (U/L) Date Value 01/25/2023 17 05/21/2021 39 Please advise. Thank you. Mariella Lenz RN. documented in this encounter [facility] 06-16-2023 Miscellaneous Notes Letter mailed to pt notifying him that repeat chest xray was negative. Heidi Jimenez Ma ----- Message from Lobito Mcmanus MD sent at 06/15/2023 6:16 PM EDT ----- CXR negative. documented in this encounter [facility] 06-09-2023 Note HNO ID: [id number] Author: Alis Dunne APRN.MEDICAL IMAGING DIRECTOR Service: ? Author Type: Nurse Practitioner Type: Progress Notes Filed: 06/12/2023 7:48 AM Note Text: CC: Patient presents with: 2 month follow up - blood sugar HPI Bronson Ochoa is a 58 year old male who presents today for above. He reports blood sugars are improving. Checking fasting which average around 130's. He has been checking after meals however only waiting about 15 min after eating so blood sugars have been anywhere from 180 to 200's. Denies increased thirst, urinary frequency, nocturia, fatigue, unintentional weight loss, blurred vision, numbness, tingling or pain in extremities, ulcers or sores on feet. REVIEW OF SYSTEMS See HPI PAST MEDICAL HISTORY Diagnosis Date Acute myocardial infarction of other specified sites, episode of care unspecified 09/2011 Myocardial Infarction Alcohol abuse 05/14/2021 Alcohol induced acute pancreatitis 05/14/2021 Cervical radiculopathy 10/21/2014 Cervical spondylosis 10/21/2014 Chronic cholecystitis 01/07/2019 Coronary artery disease Coronary artery disease involving [place] coronary artery of [place] heart without angina pectoris 09/25/2011 DDD (degenerative disc disease), cervical 10/21/2014 DDD (degenerative disc disease), thoracic 10/21/2014 Elevated PSA 12/01/2020 Esophageal reflux Gastroesophageal reflux Fatty liver due to alcoholism 03/01/2022 GERD without esophagitis 12/01/2020 Glaucoma Hypertension, essential 11/17/2020 Hypertriglyceridemia 12/01/2020 Idiopathic acute pancreatitis without infection or necrosis 02/27/2022 Mental disorder Mixed hyperlipidemia Hyperlipidemia 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 epilepticus (HCC) 12/01/2020 Posttraumatic stress disorder 03/10/2022 Preglaucoma ocular hypertension 10/05/2021 Prostate cancer (HCC) 01/26/2021 Recurrent pancreatitis 07/13/2022 Type 2 diabetes mellitus without complication, with long-term current use of insulin (HCC) 11/17/2020 Vitamin D deficiency 12/01/2020 PAST SURGICAL HISTORY Procedure Laterality Date COLONOSCOPY FLX DX W/COLLJ SPEC WHEN PFRMD 06/08/2019 repeat in 5 years due to family history of colon cancer ESOPHAGOGASTRODUODENOSCOPY TRANSORAL DIAGNOSTIC 08/31/2019 EGD LAPS SURG CHOLECYSTECTOMY W/CHOLANGIOGRAPHY 01/07/2019 LEFT HEART CATH,PERCUTANEOUS 10/31/2011 ALLERGIES Cyclobenzaprine, Iodinated Contrast Media, Lisinopril, Narcotics [Opioids - Morphine Analogues], Tramadol, and Vicodin [Hydrocodone-Acetaminophen] MEDICATIONS amoxicillin-clavulanic acid (AUGMENTIN) 875-125 mg per tablet TWICE A DAY (Patient not taking: Reported on 05/19/2023) gabapentin (NEURONTIN) 300 mg capsule Take 1 capsule by mouth twice daily for 60 days. escitalopram oxalate (LEXAPRO) 10 mg tablet Take 1 tablet by mouth once daily. loratadine (CLARITIN) 10 mg tablet Take 1 tablet by mouth once daily. amitriptyline (ELAVIL) 25 mg tablet Take 1 tablet by mouth daily at bedtime. pantoprazole DR (PROTONIX) 40 mg tablet Take 1 tablet by mouth once daily. aspirin, enteric coated (ASPIRIN, ENTERIC COATED) 81 mg EC tablet Take 1 tablet by mouth once daily. hydroCHLOROthiazide 25 mg tablet Take 1 tablet by mouth once daily. pravastatin (PRAVACHOL) 20 mg tablet Take 1 tablet by mouth once daily. metFORMIN (GLUCOPHAGE) 500 mg tablet Take 1 tablet by mouth twice daily with meals. tamsulosin (FLOMAX) 0.4 mg Take 1 capsule by mouth once daily. 30 minutes after the same meal each day. Cholecalciferol, Vitamin D3, 125 mcg (5,000 unit) cap Take 1 capsule by mouth once daily. losartan (COZAAR) 25 mg tablet Take 1 tablet by mouth once daily. magnesium oxide (MAG-OX) 400 mg (241.3 mg magnesium) tablet Take 1 tablet by mouth twice daily. insulin glargine (LANTUS SOLOSTAR U-100 INSULIN) 100 unit/mL (3 mL) Inject 14 Units subcutaneously daily at bedtime. ursodiol (AILYN) 250 mg tablet Take 1 tablet by mouth twice daily. Per [facility]. badocw-sagkshuo-pjcvmks (CREON) 12,000-38,000 -60,000 unit delayed release capsule Take 1 capsule by mouth three times daily with meals. levOCARNitine (CARNITOR) 330 mg tablet Take 330 mg by mouth twice daily. folic acid 1 mg tablet Take 1 mg by mouth three times daily. naproxen (NAPROSYN) 500 mg tablet Take 1 tablet by mouth twice daily as needed for pain. As needed for pain levETIRAcetam (KEPPRA) 500 mg tablet Take 1 tablet by mouth twice daily. Per Dr. Burnett amLODIPine (NORVASC) 10 mg tablet Take 1 tablet by mouth once daily. PER HEART GROUP. GAS RELIEF 80, SIMETHICONE, ORAL Take 1 tablet by mouth three times daily. latanoprost (XALATAN) 0.005 % ophthalmic solution Use 1 Drop in both eyes daily at bedtime. lactulose (DUPHALAC, CONSTULOSE) 10 gram/15 mL solution docosahexaenoic acid/epa (FISH OIL ORAL) Take by mouth once daily. fluticasone propionate (FLONASE NASAL) Use in the nose once daily. Multivitamin capsule Take 1 caps (more content not included)... [facility] 06-09-2023 History of Present illness Narrative CC: Patient presents with: 2 month follow up - blood sugar HPI Bronson Ochoa is a 58 year old male who presents today for above. He reports blood sugars are improving. Checking fasting which average around 130's. He has been checking after meals however only waiting about 15 min after eating so blood sugars have been anywhere from 180 to 200's. Denies increased thirst, urinary frequency, nocturia, fatigue, unintentional weight loss, blurred vision, numbness, tingling or pain in extremities, ulcers or sores on feet. REVIEW OF SYSTEMS See HPI PAST MEDICAL HISTORY Diagnosis Date Acute myocardial infarction of other specified sites, episode of care unspecified 09/2011 Myocardial Infarction Alcohol abuse 05/14/2021 Alcohol induced acute pancreatitis 05/14/2021 Cervical radiculopathy 10/21/2014 Cervical spondylosis 10/21/2014 Chronic cholecystitis 01/07/2019 Coronary artery disease Coronary artery disease involving [place] coronary artery of [place] heart without angina pectoris 09/25/2011 DDD (degenerative disc disease), cervical 10/21/2014 DDD (degenerative disc disease), thoracic 10/21/2014 Elevated PSA 12/01/2020 Esophageal reflux Gastroesophageal reflux Fatty liver due to alcoholism 03/01/2022 GERD without esophagitis 12/01/2020 Glaucoma Hypertension, essential 11/17/2020 Hypertriglyceridemia 12/01/2020 Idiopathic acute pancreatitis without infection or necrosis 02/27/2022 Mental disorder Mixed hyperlipidemia Hyperlipidemia 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 epilepticus (HCC) 12/01/2020 Posttraumatic stress disorder 03/10/2022 Preglaucoma ocular hypertension 10/05/2021 Prostate cancer (HCC) 01/26/2021 Recurrent pancreatitis 07/13/2022 Type 2 diabetes mellitus without complication, with long-term current use of insulin (HCC) 11/17/2020 Vitamin D deficiency 12/01/2020 PAST SURGICAL HISTORY Procedure Laterality Date COLONOSCOPY FLX DX W/COLLJ SPEC WHEN PFRMD 06/08/2019 repeat in 5 years due to family history of colon cancer ESOPHAGOGASTRODUODENOSCOPY TRANSORAL DIAGNOSTIC 08/31/2019 EGD LAPS SURG CHOLECYSTECTOMY W/CHOLANGIOGRAPHY 01/07/2019 LEFT HEART CATH,PERCUTANEOUS 10/31/2011 ALLERGIES Cyclobenzaprine, Iodinated Contrast Media, Lisinopril, Narcotics [Opioids - Morphine Analogues], Tramadol, and Vicodin [Hydrocodone-Acetaminophen] MEDICATIONS amoxicillin-clavulanic acid (AUGMENTIN) 875-125 mg per tablet TWICE A DAY (Patient not taking: Reported on 05/19/2023) gabapentin (NEURONTIN) 300 mg capsule Take 1 capsule by mouth twice daily for 60 days. escitalopram oxalate (LEXAPRO) 10 mg tablet Take 1 tablet by mouth once daily. loratadine (CLARITIN) 10 mg tablet Take 1 tablet by mouth once daily. amitriptyline (ELAVIL) 25 mg tablet Take 1 tablet by mouth daily at bedtime. pantoprazole DR (PROTONIX) 40 mg tablet Take 1 tablet by mouth once daily. aspirin, enteric coated (ASPIRIN, ENTERIC COATED) 81 mg EC tablet Take 1 tablet by mouth once daily. hydroCHLOROthiazide 25 mg tablet Take 1 tablet by mouth once daily. pravastatin (PRAVACHOL) 20 mg tablet Take 1 tablet by mouth once daily. metFORMIN (GLUCOPHAGE) 500 mg tablet Take 1 tablet by mouth twice daily with meals. tamsulosin (FLOMAX) 0.4 mg Take 1 capsule by mouth once daily. 30 minutes after the same meal each day. Cholecalciferol, Vitamin D3, 125 mcg (5,000 unit) cap Take 1 capsule by mouth once daily. losartan (COZAAR) 25 mg tablet Take 1 tablet by mouth once daily. magnesium oxide (MAG-OX) 400 mg (241.3 mg magnesium) tablet Take 1 tablet by mouth twice daily. insulin glargine (LANTUS SOLOSTAR U-100 INSULIN) 100 unit/mL (3 mL) Inject 14 Units subcutaneously daily at bedtime. ursodiol (AILYN) 250 mg tablet Take 1 tablet by mouth twice daily. Per [facility]. dzaxdp-hvatgzdk-zygselk (CREON) 12,000-38,000 -60,000 unit delayed release capsule Take 1 capsule by mouth three times daily with meals. levOCARNitine (CARNITOR) 330 mg tablet Take 330 mg by mouth twice daily. folic acid 1 mg tablet Take 1 mg by mouth three times daily. naproxen (NAPROSYN) 500 mg tablet Take 1 tablet by mouth twice daily as needed for pain. As needed for pain levETIRAcetam (KEPPRA) 500 mg tablet Take 1 tablet by mouth twice daily. Per Dr. Burnett amLODIPine (NORVASC) 10 mg tablet Take 1 tablet by mouth once daily. PER HEART GROUP. GAS RELIEF 80, SIMETHICONE, ORAL Take 1 tablet by mouth three times daily. latanoprost (XALATAN) 0.005 % ophthalmic solution Use 1 Drop in both eyes daily at bedtime. lactulose (DUPHALAC, CONSTULOSE) 10 gram/15 mL solution docosahexaenoic acid/epa (FISH OIL ORAL) Take by mouth once daily. fluticasone propionate (FLONASE NASAL) Use in the nose once daily. Multivitamin capsule Take 1 capsule by mouth once daily. SOFT LENS RINSE-STORE SOLUTION (SALINE MISC) nitroglycerin sublingual (NITROQUICK) 0.4 mg SL tablet Dissolve 0.4 mg under the tongue every 5 minutes as needed. FAMILY HISTORY Problem Relation Age of Onset Diabetes Father Kidney Disease Father other (DDD lumbar) Father Diabetes Mother Ischemic Heart Disease Mother COPD Mother Stroke Mother Depression Mother Breast Cancer Sister Diabetes Brother Schizophrenia Brother Hypertension Half-brother Colon Cancer Half-brother Diabetes Half-brother other (Gout) Half-brother Sarcoidosis Half-brother Hypertension Half-brother No Known Problems Half-sister Hypertension Half-sister Aneurysm Half-sister Anxiety disorder Half-sister Depression Half-sister No Known Problems Half-sister Social History Tobacco Use Smoking status: Former Packs/day: 0.50 Years: 20.00 Additional pack years: 0.00 Total pack years: 10.00 Types: Cigarettes Quit date: 09/25/2011 Years since quittin.7 Smokeless tobacco: Never Tobacco comments: Quit age 33 Vaping Use Vaping Use: Never used Substance Use Topics Alcohol use: Not Currently Alcohol/week: 3.0 standard drinks of alcohol Types: 3 Cans of Beer (12oz) per week Comment: quit 03/04/2022 Drug use: Never PHYSICAL EXAM BP 122/84 Pulse 106 Resp 18 Wt 82.1 kg (181 lb) SpO2 96% BMI 25.97 kg/m General Appearance: well appearing, in no acute distress, alert Pysch: mood and affect broad and appropriate DATA REVIEWED: Most recent labs ASSESSMENT/PLAN: 1. Type 2 diabetes mellitus without complication, with long-term current use of insulin (HCC) - ICD9: 250.00, V58.67, ICD10: E11.9, Z79.4 (primary diagnosis) - Improving control - Continue current medications - Blood glucose monitoring on a 1-2 times a day schedule. Advised patient post prandial blood sugars should be 1-2 hours after eating, 15 minutes is too soon and will yield inaccurate results. - Counseled on healthy diet and regular exercise - Discussed need for and benefit of weight loss. BMI 25.97 kg/(m^2) - Discussed diabetic education issues of diabetes complications and monitoring required and hypoglycemic/hyperglycemic symptoms 2. Encounter for immunization - ICD9: V03.89, ICD10: Z23 - INFLUENZA VACCINE, AGE 6 MO - 64 YR, QUADRIVALENT (AFLURIA, FLULAVAL, FLUZONE) Prescription instructions reviewed with patient as applicable. Potential red flag symptoms discussed with the patient. Reviewed appropriate action plan to take if red flag symptoms occur. Patient agreeable to treatment plan. During this patient visit I have spent approximately 20 minutes in counseling regarding treatment options, medications, and test results. Alis Dunne APRN.CNP documented in this encounter [facility] 06-05-2023 Note HNO ID: [id number] Author: Puja Starr RT(R) Service: Radiology Author Type: Technologist Type: Progress Notes Filed: 06/05/2023 12:39 PM Note Text: Radiology Service Progress Note PATIENT NAME: Bronson Ochoa DATE OF SERVICE: June 05, 2023 TIME: 12:30 PM PATIENT IDENTITY VERIFICATION COMPLETED USING TWO (2) IDENTIFIERS: Name and Date of confirmed by patient verbally. FALL SCREENING: Has the patient had 2 falls in the last year or 1 fall with injury or currently using an Ambulatory Assistive Device (Walker, Cane, Wheelchair, Crutches, etc.)? No PATIENT GENDER DATA: Male PATIENT RELEVANT IMPLANT DATA REVIEWED: Not Applicable RADIOLOGY DEPARTMENT: General X-ray: Exam(s) Completed: Chest X-Ray PERIPHERAL IV DATA: Not applicable SIGNED BY: RT Isaiah(R) June 05, 2023 12:30 PM [facility] 05-19-2023 Note HNO ID: [id number] Author: Rasheed Epps Service: ? Author Type: Physician Type: Progress Notes Filed: 05/19/2023 12:50 PM Note Text: Consultation requested by Dr. Mcmanus for an opinion regarding diabetic foot exam. My final recommendations will be communicated back to the requesting physician by way of shared Medical record or letter to requesting physician via US mail. Initial Office Visit Subjective: This 58 year old male presents to clinic for diabetic foot check. Patient has the following complaints: painful 2nd toenail. Patient states his toenails are thick and discolored and deformed. He states he has difficult time cutting the nails. Patient admits to being diabetic for many years now. Patient +B/T/N in feet at this time. Patient -pain in legs when walking. No other pedal complaints at this time. No change in medications or medical history since last visit. PAIN EVALUATION No data found in the last 1 encounters. Hemoglobin A1C (%) Date Value 01/25/2023 10.9 05/19/2022 6.8 11/17/2020 7.0 HBA1C, [place] (%) Date Value 01/04/2011 5.3 Hemoglobin A1C (POCT) (%) Date Value 05/04/2023 7.8 PCP: Lobito Mcmanus MD PAST MEDICAL HISTORY Diagnosis Date Acute myocardial infarction of other specified sites, episode of care unspecified 09/2011 Myocardial Infarction Alcohol abuse 05/14/2021 Alcohol induced acute pancreatitis 05/14/2021 Cervical radiculopathy 10/21/2014 Cervical spondylosis 10/21/2014 Chronic cholecystitis 01/07/2019 Coronary artery disease Coronary artery disease involving [place] coronary artery of [place] heart without angina pectoris 09/25/2011 DDD (degenerative disc disease), cervical 10/21/2014 DDD (degenerative disc disease), thoracic 10/21/2014 Elevated PSA 12/01/2020 Esophageal reflux Gastroesophageal reflux Fatty liver due to alcoholism 03/01/2022 GERD without esophagitis 12/01/2020 Glaucoma Hypertension, essential 11/17/2020 Hypertriglyceridemia 12/01/2020 Idiopathic acute pancreatitis without infection or necrosis 02/27/2022 Mental disorder Mixed hyperlipidemia Hyperlipidemia 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 epilepticus (HCC) 12/01/2020 Posttraumatic stress disorder 03/10/2022 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 escitalopram oxalate (LEXAPRO) 10 mg tablet Take 1 tablet by mouth once daily. loratadine (CLARITIN) 10 mg tablet Take 1 tablet by mouth once daily. amitriptyline (ELAVIL) 25 mg tablet Take 1 tablet by mouth daily at bedtime. pantoprazole DR (PROTONIX) 40 mg tablet Take 1 tablet by mouth once daily. aspirin, enteric coated (ASPIRIN, ENTERIC COATED) 81 mg EC tablet Take 1 tablet by mouth once daily. hydroCHLOROthiazide 25 mg tablet Take 1 tablet by mouth once daily. pravastatin (PRAVACHOL) 20 mg tablet Take 1 tablet by mouth once daily. metFORMIN (GLUCOPHAGE) 500 mg tablet Take 1 tablet by mouth twice daily with meals. tamsulosin (FLOMAX) 0.4 mg Take 1 capsule by mouth once daily. 30 minutes after the same meal each day. Cholecalciferol, Vitamin D3, 125 mcg (5,000 unit) cap Take 1 capsule by mouth once daily. losartan (COZAAR) 25 mg tablet Take 1 tablet by mouth once daily. magnesium oxide (MAG-OX) 400 mg (241.3 mg magnesium) tablet Take 1 tablet by mouth twice daily. insulin glargine (LANTUS SOLOSTAR U-100 INSULIN) 100 unit/mL (3 mL) Inject 14 Units subcutaneously daily at bedtime. ursodiol (AILYN) 250 mg tablet Take 1 tablet by mouth twice daily. Per [facility]. czqocs-nwjkztaq-oskhqut (CREON) 12,000-38,000 -60,000 unit delayed release capsule Take 1 capsule by mouth three times daily with meals. levOCARNitine (CARNITOR) 330 mg tablet Take 330 mg by mouth twice daily. folic acid 1 mg tablet Take 1 mg by mouth three times daily. naproxen (NAPROSYN) 500 mg tablet Take 1 tablet by mouth twice daily as needed for pain. As needed for pain levETIRAcetam (KEPPRA) 500 mg tablet Take 1 tablet by mouth twice daily. Per Dr. Burnett amLODIPine (NORVASC) 10 mg tablet Take 1 tablet by mouth once daily. PER HEART GROUP. GAS RELIEF 80, SIMETHICONE, ORAL Take 1 tablet by mouth three times daily. latanoprost (XALATAN) 0.005 % ophthalmic solution Use 1 Drop in both eyes daily at bedtime. lactulose (DUPHALAC, CONSTULOSE) 10 gram/15 mL solution docosahexaenoic acid/epa (FISH OIL ORAL) Take by mouth once daily. fluticasone propionate (FLONASE NASAL) Use in the nose once daily. Multivitamin capsule Take 1 capsule by mouth once daily. SOFT LENS RINSE-STORE SOLUTION (SALINE MISC) nitroglycerin sublingual (NITROQ (more content not included)... [facility] 05-19-2023 Note HNO ID: [id number] Author: Kendy Corona RN Service: ? Author Type: Registered Nurse Type: Progress Notes Filed: 05/19/2023 12:50 PM Note Text: Patient presents with: Left Foot - New, Nail Check Right Foot - New, Nail Check Patient presents for thick and curved toenails to both feet. States that he has a hard time cutting his nails himself. Has a history of diabetes with neuropathy. [facility] 05-19-2023 Instructions Rasheed Epps - 05/19/2023 10:27 AM EDT Diabetes Foot Care Instructions When you have diabetes, proper foot care is very important. Poor foot care may lead to amputation of a foot or leg. As a person with diabetes, you are more vulnerable to foot problems, because diabetes can damage your nerves and reduce blood flow to your feet. Here are some diabetes foot care tips to follow: Wash and Dry Your Feet Daily Use mild soaps Use warm water Pat your skin dry; do not rub. Thoroughly dry your feet. After washing, use lotion on your feet to prevent cracking. Do not put lotion between your toes. Examine Your Feet Each Day Check the tops and bottoms of your feet. Have someone else look at your feet if you cannot see them. Check for dry, cracked skin. Look for blisters, cuts, scratches, or other sores. Check for redness, increased warmth, or tenderness when touching any area of your feet. Check for ingrown toenails, corns, and calluses. If you get a blister or sore from your shoes, do not pop it. Apply a bandage and wear a different pair of shoes. Take Care of Your Toenails Cut toenails after bathing, when they are soft. Cut toenails straight across and smooth with a nail file. Avoid cutting into the corners of toes. Do not cut cuticles. If you have neuropathy (or decreased sensation in your feet) a rn bone marrow transplant should always cut your toenails. Be Careful When Exercising Walk and exercise in comfortable shoes. Do not exercise when you have open sores on your feet. Protect Your Feet With Shoes and Socks Never go barefoot. Always protect your feet by wearing shoes or hard-soled slippers or footwear. Avoid shoes with high heels and pointed toes. Avoid shoes that expose your toes or heels (such as open-toed shoes or sandals). These types of shoes increase your risk for injury and potential infections. Try on new footwear with the type of socks you usually wear. Do not wear new shoes for more than an hour at a time. Change your socks daily. Look and feel inside your shoes before putting them on to make sure there are no foreign objects or rough areas. Avoid tight socks. Wear natural-fiber socks (cotton, wool, or a cotton-wool blend). Wear special shoes if your health care provider recommends them. Wear shoes/boots that will protect your feet from various weather conditions (cold, moisture, etc.). Make sure your shoes fit properly. If you have neuropathy (nerve damage), you may not notice that your shoes are too tight. Perform the footwear test described below. Footwear Test Use this simple test to see if your shoes fit correctly: Stand on a piece of paper. (Make sure you are standing and not sitting, because your foot changes shape when you stand.) Trace the outline of your foot. Trace the outline of your shoe. Compare the tracings: Is the shoe too narrow? Is your foot crammed into the shoe? The shoe should be at least 1/2 inch longer than your longest toe and as wide as your foot. Proper Shoe Choices The following types of shoes are best for people with diabetes Closed toes and heels Leather uppers without a seam inside At least 1/2 inch extra space at the end of your longest toe Inside of shoe should be soft with no rough areas Outer sole should be made of stiff material Shoes should be at least as wide as your feet Tips for Foot Care in Diabetes Don't wait to treat a minor foot problem if you have diabetes. Follow your health care provider's guidelines and first aid guidelines. Report foot injuries and infections to your health care provider immediately. Check water temperature with your elbow, not your foot. Do not use a heating pad on your feet. Do not cross your legs. Do not self-treat your corns, calluses, or other foot problems. Go to your health care provider or rn bone marrow transplant to treat these conditions. documented in this encounter [facility] 05-19-2023 History of Present illness Narrative Consultation requested by Dr. Mcmanus for an opinion regarding diabetic foot exam. My final recommendations will be communicated back to the requesting physician by way of shared Medical record or letter to requesting physician via US mail. Initial Office Visit Subjective: This 58 year old male presents to clinic for diabetic foot check. Patient has the following complaints: painful 2nd toenail. Patient states his toenails are thick and discolored and deformed. He states he has difficult time cutting the nails. Patient admits to being diabetic for many years now. Patient +B/T/N in feet at this time. Patient -pain in legs when walking. No other pedal complaints at this time. No change in medications or medical history since last visit. PAIN EVALUATION No data found in the last 1 encounters. Hemoglobin A1C (%) Date Value 01/25/2023 10.9 05/19/2022 6.8 11/17/2020 7.0 HBA1C, [place] (%) Date Value 01/04/2011 5.3 Hemoglobin A1C (POCT) (%) Date Value 05/04/2023 7.8 PCP: Lobito Mcmanus MD PAST MEDICAL HISTORY Diagnosis Date Acute myocardial infarction of other specified sites, episode of care unspecified 09/2011 Myocardial Infarction Alcohol abuse 05/14/2021 Alcohol induced acute pancreatitis 05/14/2021 Cervical radiculopathy 10/21/2014 Cervical spondylosis 10/21/2014 Chronic cholecystitis 01/07/2019 Coronary artery disease Coronary artery disease involving [place] coronary artery of [place] heart without angina pectoris 09/25/2011 DDD (degenerative disc disease), cervical 10/21/2014 DDD (degenerative disc disease), thoracic 10/21/2014 Elevated PSA 12/01/2020 Esophageal reflux Gastroesophageal reflux Fatty liver due to alcoholism 03/01/2022 GERD without esophagitis 12/01/2020 Glaucoma Hypertension, essential 11/17/2020 Hypertriglyceridemia 12/01/2020 Idiopathic acute pancreatitis without infection or necrosis 02/27/2022 Mental disorder Mixed hyperlipidemia Hyperlipidemia 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 epilepticus (HCC) 12/01/2020 Posttraumatic stress disorder 03/10/2022 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 escitalopram oxalate (LEXAPRO) 10 mg tablet Take 1 tablet by mouth once daily. loratadine (CLARITIN) 10 mg tablet Take 1 tablet by mouth once daily. amitriptyline (ELAVIL) 25 mg tablet Take 1 tablet by mouth daily at bedtime. pantoprazole DR (PROTONIX) 40 mg tablet Take 1 tablet by mouth once daily. aspirin, enteric coated (ASPIRIN, ENTERIC COATED) 81 mg EC tablet Take 1 tablet by mouth once daily. hydroCHLOROthiazide 25 mg tablet Take 1 tablet by mouth once daily. pravastatin (PRAVACHOL) 20 mg tablet Take 1 tablet by mouth once daily. metFORMIN (GLUCOPHAGE) 500 mg tablet Take 1 tablet by mouth twice daily with meals. tamsulosin (FLOMAX) 0.4 mg Take 1 capsule by mouth once daily. 30 minutes after the same meal each day. Cholecalciferol, Vitamin D3, 125 mcg (5,000 unit) cap Take 1 capsule by mouth once daily. losartan (COZAAR) 25 mg tablet Take 1 tablet by mouth once daily. magnesium oxide (MAG-OX) 400 mg (241.3 mg magnesium) tablet Take 1 tablet by mouth twice daily. insulin glargine (LANTUS SOLOSTAR U-100 INSULIN) 100 unit/mL (3 mL) Inject 14 Units subcutaneously daily at bedtime. ursodiol (AILYN) 250 mg tablet Take 1 tablet by mouth twice daily. Per [facility]. ygxuky-onwqcxbf-cpuadxk (CREON) 12,000-38,000 -60,000 unit delayed release capsule Take 1 capsule by mouth three times daily with meals. levOCARNitine (CARNITOR) 330 mg tablet Take 330 mg by mouth twice daily. folic acid 1 mg tablet Take 1 mg by mouth three times daily. naproxen (NAPROSYN) 500 mg tablet Take 1 tablet by mouth twice daily as needed for pain. As needed for pain levETIRAcetam (KEPPRA) 500 mg tablet Take 1 tablet by mouth twice daily. Per Dr. Burnett amLODIPine (NORVASC) 10 mg tablet Take 1 tablet by mouth once daily. PER HEART GROUP. GAS RELIEF 80, SIMETHICONE, ORAL Take 1 tablet by mouth three times daily. latanoprost (XALATAN) 0.005 % ophthalmic solution Use 1 Drop in both eyes daily at bedtime. lactulose (DUPHALAC, CONSTULOSE) 10 gram/15 mL solution docosahexaenoic acid/epa (FISH OIL ORAL) Take by mouth once daily. fluticasone propionate (FLONASE NASAL) Use in the nose once daily. Multivitamin capsule Take 1 capsule by mouth once daily. SOFT LENS RINSE-STORE SOLUTION (SALINE MISC) nitroglycerin sublingual (NITROQUICK) 0.4 mg SL tablet Dissolve 0.4 mg under the tongue every 5 minutes as needed. amoxicillin-clavulanic acid (AUGMENTIN) 875-125 mg per tablet TWICE A DAY (Patient not taking: Reported on 05/19/2023) No current facility-administered medications for this visit. ALLERGIES Allergen Reactions Cyclobenzaprine Itching Iodinated Contrast * Itching Lisinopril Swelling mouth and throat Narcotics [Opioids * Itching Tramadol Itching Vicodin [Hydrocodon* Swelling mouth and throat PAST SURGICAL HISTORY Procedure Laterality Date COLONOSCOPY FLX DX W/COLLJ SPEC WHEN PFRMD 06/08/2019 repeat in 5 years due to family history of colon cancer ESOPHAGOGASTRODUODENOSCOPY TRANSORAL DIAGNOSTIC 08/31/2019 EGD LAPS SURG CHOLECYSTECTOMY W/CHOLANGIOGRAPHY 01/07/2019 LEFT HEART CATH,PERCUTANEOUS 10/31/2011 FAMILY HISTORY Problem Relation Age of Onset Diabetes Father Kidney Disease Father other (DDD lumbar) Father Diabetes Mother Ischemic Heart Disease Mother COPD Mother Stroke Mother Depression Mother Breast Cancer Sister Diabetes Brother Schizophrenia Brother Hypertension Half-brother Colon Cancer Half-brother Diabetes Half-brother other (Gout) Half-brother Sarcoidosis Half-brother Hypertension Half-brother No Known Problems Half-sister Hypertension Half-sister Aneurysm Half-sister Anxiety disorder Half-sister Depression Half-sister No Known Problems Half-sister Social History Tobacco Use Smoking status: Former Packs/day: 0.50 Years: 20.00 Additional pack years: 0.00 Total pack years: 10.00 Types: Cigarettes Quit date: 09/25/2011 Years since quittin.6 Smokeless tobacco: Never Tobacco comments: Quit age 33 Vaping Use Vaping Use: Never used Substance Use Topics Alcohol use: Not Currently Alcohol/week: 3.0 standard drinks of alcohol Types: 3 Cans of Beer (12oz) per week Comment: quit 03/04/2022 Drug use: Never REVIEW OF SYSTEMS GENERAL: Negative for Malaise, significant weight loss, fever RESPIRATORY: Negative for cough, wheezing and shortness of breath CARDIOVASCULAR: Negative for chest pain, leg swelling and palpitations GI: Negative for abdominal discomfort, blood in stools or black stools and change in bowel habits : Negative for dysuria, frequency and incontinence MUSCULOSKELETAL: Negative for joint pain or swelling, back pain, and muscle pain. SKIN: Negative for lesions, rash, and itching. HEMATOLOGY/LYMPHOLOGY Negative for prolonged bleeding, bruising easily, and swollen nodes. ENDOCRINE: Negative for cold or heat intolerance, polyuria, polydipsia and goiter. NEURO: negative The remainder of the review of systems is noncontributory. Objective: Patient presents to clinic ambulating in [facility] Constitutional: Pt is a well developed 58 year old male who is alert, oriented, cooperative and in no apparent distress. Eyes: Following during examination. No redness or drainage. Respiratory: RR normal and nonlabored. Even breathing. No evidence of distress. Psychology: Patient is engaged during conversation. Normal affect and mood. Does not appear depressed or anxious. Vasc: DP and PT pulses are palpable bilateral. CFT is less than 5 seconds bilateral. Skin temperature is warm to warm proximal to distal bilateral. There is no edema or varicosities noted. Hair growth present. Neuro: Protective sensation is intact to the foot and toes when tested with the 5.07 SWM bilateral. Vibratory sensation is intact at the hallux bilateral. + Significant neurological defecits. Derm: Inspection and palpation performed. Nails 1-5 b/l are painful, discolored-yellow, thick, crumbly, dystrophic and with subungal debris. Skin is of normal turgor and texture. Hyperkeratosis noted to not present. NO ulcerations, scars, verruca or other lesions noted. Ortho: Ankle joint DF is full with the knee extended and full with knee flexed. No pain or crepitus noted. STJ, MTJ ROM are full and free of pain or crepitus. Muscle strength is 5/5 for dorsiflexors, plantarflexors, inverters, everters. Assessment: (E11.9, Z79.4) Type 2 diabetes mellitus without complication, with long-term current use of insulin ([facility]) (primary encounter diagnosis (B35.1) Dermatophytosis, nail (M79.675) Pain in toe of left foot (M79.674) Pain in toe of right foot (R09.89) Diminished pulses in lower extremity Plan: 1. Patient was seen and evaluated. 2. Patient was instructed on the continued importance of diabetic foot care along with proper diet and keeping their blood sugar under control to prevent complications. Instructions given both oral and written. 3. Toenails 1-5 b/l debrided in length and thickness. Educated patient on proper trimming of the nail 4. Will get baseline pvr to access circulation to the foot Rasheed Epps DPM Patient presents with: Left Foot - New, Nail Check Right Foot - New, Nail Check Patient presents for thick and curved toenails to both feet. States that he has a hard time cutting his nails himself. Has a history of diabetes with neuropathy. documented in this encounter [facility] 05-04-2023 Note HNO ID: [id number] Author: Lobito Mcmanus MD Service: ? Author Type: Physician Type: Progress Notes Filed: 05/04/2023 3:05 PM Note Text: This note was created using [employer]. Subjective Bronson Ochoa is a 58 year old male. He was in the ED yesterday with abdominal pain, constipation. His work up for pancreatitis was negative, but he had incidental LLL pneumonia detected on his CT AANDP. He was doing better today but still constipated. Review of Systems Constitutional: Positive for chills. Negative for fatigue, fever and unexpected weight change. Respiratory: Positive for cough. Negative for chest tightness, shortness of breath and wheezing. Cardiovascular: Negative for chest pain, palpitations and leg swelling. Gastrointestinal: Positive for constipation. Negative for abdominal pain, blood in stool, diarrhea, nausea and vomiting. Genitourinary: Negative for difficulty urinating and dysuria. 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 Coronary Artery Disease Involving [place] Coronary Artery of [place] Heart Without Angina Pectoris Posttraumatic Stress Disorder Lower Urinary Tract Symptoms (Luts) Alcohol-Induced Chronic Pancreatitis (Hcc) Fatty Liver Due to Alcoholism Current Outpatient Medications Medication Sig amoxicillin-clavulanic acid (AUGMENTIN) 875-125 mg per tablet TWICE A DAY gabapentin (NEURONTIN) 300 mg capsule Take 1 capsule by mouth twice daily for 60 days. escitalopram oxalate (LEXAPRO) 10 mg tablet Take 1 tablet by mouth once daily. loratadine (CLARITIN) 10 mg tablet Take 1 tablet by mouth once daily. amitriptyline (ELAVIL) 25 mg tablet Take 1 tablet by mouth daily at bedtime. pantoprazole DR (PROTONIX) 40 mg tablet Take 1 tablet by mouth once daily. aspirin, enteric coated (ASPIRIN, ENTERIC COATED) 81 mg EC tablet Take 1 tablet by mouth once daily. hydroCHLOROthiazide 25 mg tablet Take 1 tablet by mouth once daily. pravastatin (PRAVACHOL) 20 mg tablet Take 1 tablet by mouth once daily. metFORMIN (GLUCOPHAGE) 500 mg tablet Take 1 tablet by mouth twice daily with meals. tamsulosin (FLOMAX) 0.4 mg Take 1 capsule by mouth once daily. 30 minutes after the same meal each day. Cholecalciferol, Vitamin D3, 125 mcg (5,000 unit) cap Take 1 capsule by mouth once daily. losartan (COZAAR) 25 mg tablet Take 1 tablet by mouth once daily. magnesium oxide (MAG-OX) 400 mg (241.3 mg magnesium) tablet Take 1 tablet by mouth twice daily. insulin glargine (LANTUS SOLOSTAR U-100 INSULIN) 100 unit/mL (3 mL) Inject 14 Units subcutaneously daily at bedtime. ursodiol (AILYN) 250 mg tablet Take 1 tablet by mouth twice daily. Per [facility]. irysjt-auiinhna-xcnboux (CREON) 12,000-38,000 -60,000 unit delayed release capsule Take 1 capsule by mouth three times daily with meals. levOCARNitine (CARNITOR) 330 mg tablet Take 330 mg by mouth twice daily. folic acid 1 mg tablet Take 1 mg by mouth three times daily. naproxen (NAPROSYN) 500 mg tablet Take 1 tablet by mouth twice daily as needed for pain. As needed for pain levETIRAcetam (KEPPRA) 500 mg tablet Take 1 tablet by mouth twice daily. Per Dr. Burnett amLODIPine (NORVASC) 10 mg tablet Take 1 tablet by mouth once daily. PER HEART GROUP. GAS RELIEF 80, SIMETHICONE, ORAL Take 1 tablet by mouth three times daily. latanoprost (XALATAN) 0.005 % ophthalmic solution Use 1 Drop in both eyes daily at bedtime. lactulose (DUPHALAC, CONSTULOSE) 10 gram/15 mL solution docosahexaenoic acid/epa (FISH OIL ORAL) Take by mouth once daily. fluticasone propionate (FLONASE NASAL) Use in the nose once daily. Multivitamin capsule Take 1 capsule by mouth once daily. SOFT LENS RINSE-STORE SOLUTION (SALINE MISC) nitroglycerin sublingual (NITROQUICK) 0.4 mg SL tablet Dissolve 0.4 mg under the tongue every 5 minutes as needed. oxyCODONE-acetaminophen (PERCOCET) 5-325 mg tablet EVERY 6 HOURS NEEDED No current facility-administered medications for this visit. Objective BP 114/72 (BP Site: Left Arm, BP Position: Sitting, BP Cuff Size: Large Adult) Pulse 96 Temp 36.7 ?C (98 ?F) (Temporal) Resp 18 Wt 83.5 kg (184 lb) SpO2 97% BMI 26.40 kg/m? Physical Exam Constitutional: General: He is not in acute distress. Appearance: He is not ill-appearing or diaphoretic. HENT: Mouth/Throat: Mouth: Mucous membranes are dry. Comments: Tongue coated. Cardiovascular: Rate and Rhythm: Normal rate and regular rhythm. Heart sounds: No murmur heard. No gallop. Pulmonary: Effort: No (more content not included)... [facility] 05-01-2023 Miscellaneous Notes Patient has been identified by name and date of : Yes, Provider Date Time Pharmacy phones for refill(s): Requested Prescriptions Pending Prescriptions Disp Refills gabapentin (NEURONTIN) 300 mg capsule 180 capsule 0 Sig: Take 1 capsule by mouth twice daily for 90 days. escitalopram oxalate (LEXAPRO) 10 mg tablet 30 tablet 5 Sig: Take 1 tablet by mouth once daily. loratadine (CLARITIN) 10 mg tablet 90 tablet 1 Sig: Take 1 tablet by mouth once daily. amitriptyline (ELAVIL) 25 mg tablet 90 tablet 1 Sig: Take 1 tablet by mouth daily at bedtime. pantoprazole DR (PROTONIX) 40 mg tablet 90 tablet 1 Sig: Take 1 tablet by mouth once daily. aspirin, enteric coated (ASPIRIN, ENTERIC COATED) 81 mg EC tablet 90 tablet 1 Sig: Take 1 tablet by mouth once daily. hydroCHLOROthiazide 25 mg tablet 90 tablet 1 Sig: Take 1 tablet by mouth once daily. pravastatin (PRAVACHOL) 20 mg tablet 90 tablet 1 Sig: Take 1 tablet by mouth once daily. metFORMIN (GLUCOPHAGE) 500 mg tablet 180 tablet 1 Sig: Take 1 tablet by mouth twice daily with meals. tamsulosin (FLOMAX) 0.4 mg 90 capsule 1 Sig: Take 1 capsule by mouth once daily. 30 minutes after the same meal each day. Cholecalciferol, Vitamin D3, 125 mcg (5,000 unit) cap 90 capsule 1 Sig: Take 1 capsule by mouth once daily. Date of last office visit with pcp: 12/09/22 Date of last office visit in primary care: Last 2 Encounter Wt Readings: Date: Wt: 02/06/2023 82.6 kg (182 lb) 12/15/2022 82.7 kg (182 lb 6.4 oz) Previous labs/tests for medication: Diabetes: Hemoglobin A1C (%) Date Value 01/25/2023 10.9 05/19/2022 6.8 11/17/2020 7.0 HBA1C, [place] (%) Date Value 01/04/2011 5.3 Cholesterol: HDL Cholesterol (mg/dL) Date Value 01/25/2023 58 11/17/2020 49 LDL Cholesterol (mg/dL) Date Value 01/25/2023 109 11/17/2020 75 ALT (U/L) Date Value 01/25/2023 19 05/21/2021 63 Non HDL Cholesterol (mg/dL) Date Value 01/25/2023 143 11/17/2020 110 Blood Pressure: BUN (mg/dL) Date Value 01/25/2023 16 05/21/2021 14 Sodium (mmol/L) Date Value 01/25/2023 133 05/21/2021 137 Last 1 Encounter BP Readings: Date: BP: 02/06/2023 121/83 Please advise. Thank you. Cari Moss RN documented in this encounter [facility] 02-21-2023 Note HNO ID: [id number] Author: Thiago Galicia MD Service: ? Author Type: Physician Type: Progress Notes Filed: 02/21/2023 10:11 AM Note Text: Assessment and Plan 1. Type 2 diabetes mellitus without retinopathy (HCC) -no diabetic retinopathy both eyes 2. Primary open angle glaucoma (POAG) of both eyes, mild stage -(+) family history father -poor compliance with drops, however OCT nerve stable today 3. Hypertensive retinopathy, bilateral -with AV nicking both eyes 4. Combined form of age-related cataract, both eyes -not visually significant both eyes -on flomax 5. [place] gland dysfunction (MGD) of upper and lower lids of both eyes -cloudy secretions but asymptomatic Plan: -Continue blood sugar and blood pressure control -continue travatan at bedtime both eyes -follow-up [address] Galindo. To consider sequeira visual field (HVF) 24-2 and OCT nerve both eyes I have confirmed and edited as necessary the relevant ophthalmic history, ROS, and the neuro exam findings as obtained by others. I have seen and examined Bronson Ochoa. I have discussed the case and the management of this patient's care with the Resident/Fellow, if applicable. I also have reviewed and agree with the assessment and plan as stated above and agree with all of its relevant components. Thiago Galicia MD February 21, 2023 10:06 AM [facility] 02-21-2023 History of Present illness Narrative Assessment and Plan 1. Type 2 diabetes mellitus without retinopathy (HCC) -no diabetic retinopathy both eyes 2. Primary open angle glaucoma (POAG) of both eyes, mild stage -(+) family history father -poor compliance with drops, however OCT nerve stable today 3. Hypertensive retinopathy, bilateral -with AV nicking both eyes 4. Combined form of age-related cataract, both eyes -not visually significant both eyes -on flomax 5. [place] gland dysfunction (MGD) of upper and lower lids of both eyes -cloudy secretions but asymptomatic Plan: -Continue blood sugar and blood pressure control -continue travatan at bedtime both eyes -follow-up [address] Galindo. To consider sequeira visual field (HVF) 24-2 and OCT nerve both eyes I have confirmed and edited as necessary the relevant ophthalmic history, ROS, and the neuro exam findings as obtained by others. I have seen and examined Bronson Ochoa. I have discussed the case and the management of this patient's care with the Resident/Fellow, if applicable. I also have reviewed and agree with the assessment and plan as stated above and agree with all of its relevant components. Thiago Galicia MD February 21, 2023 10:06 AM documented in this encounter [facility] 02-06-2023 Note HNO ID: [id number] Author: Lobito Mcmanus MD Service: ? Author Type: Physician Type: Progress Notes Filed: 02/06/2023 1:55 PM Note Text: This note was created using [employer]. Subjective Bronson Ochoa is a 57 year old male. He felt ill this morning with shakiness, weakness, lightheadedness. He had no other symptoms. He did not check his glucose today, but indicated his glucoses were okay yesterday. We reviewed his lab results which did not support his glucose readings. His meter was not available. Review of Systems Constitutional: Negative for appetite change, chills, diaphoresis, fever and unexpected weight change. HENT: Negative for congestion. Respiratory: Negative for cough, chest tightness and shortness of breath. Cardiovascular: Negative for chest pain, palpitations and leg swelling. Gastrointestinal: Positive for nausea. Negative for abdominal pain, diarrhea and vomiting. Genitourinary: Negative for difficulty urinating and dysuria. 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 Coronary Artery Disease Involving [place] Coronary Artery of [place] Heart Without Angina Pectoris Posttraumatic Stress Disorder Lower Urinary Tract Symptoms (Luts) 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 losartan (COZAAR) 25 mg tablet Take 1 tablet by mouth once daily. magnesium oxide (MAG-OX) 400 mg (241.3 mg magnesium) tablet Take 1 tablet by mouth twice daily. predniSONE (DELTASONE) 20 mg tablet Take 1 tablet by mouth twice daily. ursodiol (AILYN 250) 250 mg tablet Take 1 tablet by mouth twice daily. Per [facility]. nnfbyg-fwiaqknb-tjteyvs (CREON) 12,000-38,000 -60,000 unit delayed release capsule Take 1 capsule by mouth three times daily with meals. loratadine (CLARITIN) 10 mg tablet Take 1 tablet by mouth once daily. escitalopram oxalate (LEXAPRO) 10 mg tablet Take 1 tablet by mouth once daily. levOCARNitine (CARNITOR) 330 mg tablet Take 330 mg by mouth twice daily. folic acid 1 mg tablet Take 1 mg by mouth three times daily. tamsulosin (FLOMAX) 0.4 mg Take 1 capsule by mouth once daily. 30 minutes after the same meal each day. pravastatin (PRAVACHOL) 20 mg tablet Take 1 tablet by mouth once daily. pantoprazole DR (PROTONIX) 40 mg tablet Take 1 tablet by mouth once daily. amitriptyline (ELAVIL) 25 mg tablet Take 1 tablet by mouth daily at bedtime. hydroCHLOROthiazide (HYDRODIURIL, ESIDRIX) 25 mg tablet Take 1 tablet by mouth once daily. aspirin, enteric coated (ASPIRIN, ENTERIC COATED) 81 mg EC tablet Take 1 tablet by mouth once daily. Cholecalciferol, Vitamin D3, 125 mcg (5,000 unit) cap Take 1 capsule by mouth once daily. metFORMIN (GLUCOPHAGE) 500 mg tablet Take 1 tablet by mouth twice daily with meals. naproxen (NAPROSYN) 500 mg tablet Take 1 tablet by mouth twice daily as needed for pain. As needed for pain levETIRAcetam (KEPPRA) 500 mg tablet Take 1 tablet by mouth twice daily. Per Dr. Burnett insulin glargine (LANTUS SOLOSTAR U-100 INSULIN) 100 unit/mL (3 mL) Inject 10 Units subcutaneously daily at bedtime. amLODIPine (NORVASC) 10 mg tablet Take 1 tablet by mouth once daily. PER HEART GROUP. GAS RELIEF 80, SIMETHICONE, ORAL Take 1 tablet by mouth three times daily. latanoprost (XALATAN) 0.005 % ophthalmic solution Use 1 Drop in both eyes daily at bedtime. lactulose (DUPHALAC, CONSTULOSE) 10 gram/15 mL solution docosahexaenoic acid/epa (FISH OIL ORAL) Take by mouth once daily. fluticasone propionate (FLONASE NASAL) Use in the nose once daily. Multivitamin capsule Take 1 capsule by mouth once daily. SOFT LENS RINSE-STORE SOLUTION (SALINE MISC) nitroglycerin sublingual (NITROQUICK) 0.4 mg SL tablet Dissolve 0.4 mg under the tongue every 5 minutes as needed. No current facility-administered medications for this visit. Objective BP 121/83 (BP Site: Left Arm, BP Position: Sitting, BP Cuff Size: Large Adult) Pulse 109 (more content not included)... [facility] 02-06-2023 Instructions Lobito Mcmanus MD - 02/06/2023 1:42 PM EDT TAKE EXTRA 10 UNITS OF LANTUS WHEN YOU GET HOME. STARTING TOMORROW, TAKE LANTUS 14 UNITS. EVERY 3 DAYS INCREASE OR ADD 2 UNITS UNTIL MOST OF YOUR FASTING GLUCOSE ARE 140 OR LESS. THEN STOP AT THAT LANTUS INSULIN DOSE. documented in this encounter [facility] 02-06-2023 History of Present illness Narrative This note was created using CausePlayter. Carmen Ochoa is a 57 year old male. He felt ill this morning with shakiness, weakness, lightheadedness. He had no other symptoms. He did not check his glucose today, but indicated his glucoses were okay yesterday. We reviewed his lab results which did not support his glucose readings. His meter was not available. Review of Systems Constitutional: Negative for appetite change, chills, diaphoresis, fever and unexpected weight change. HENT: Negative for congestion. Respiratory: Negative for cough, chest tightness and shortness of breath. Cardiovascular: Negative for chest pain, palpitations and leg swelling. Gastrointestinal: Positive for nausea. Negative for abdominal pain, diarrhea and vomiting. Genitourinary: Negative for difficulty urinating and dysuria. 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 Coronary Artery Disease Involving [place] Coronary Artery of [place] Heart Without Angina Pectoris Posttraumatic Stress Disorder Lower Urinary Tract Symptoms (Luts) 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 losartan (COZAAR) 25 mg tablet Take 1 tablet by mouth once daily. magnesium oxide (MAG-OX) 400 mg (241.3 mg magnesium) tablet Take 1 tablet by mouth twice daily. predniSONE (DELTASONE) 20 mg tablet Take 1 tablet by mouth twice daily. ursodiol (AILYN 250) 250 mg tablet Take 1 tablet by mouth twice daily. Per [facility]. mwfmqt-yxcwpjxe-mhkaiij (CREON) 12,000-38,000 -60,000 unit delayed release capsule Take 1 capsule by mouth three times daily with meals. loratadine (CLARITIN) 10 mg tablet Take 1 tablet by mouth once daily. escitalopram oxalate (LEXAPRO) 10 mg tablet Take 1 tablet by mouth once daily. levOCARNitine (CARNITOR) 330 mg tablet Take 330 mg by mouth twice daily. folic acid 1 mg tablet Take 1 mg by mouth three times daily. tamsulosin (FLOMAX) 0.4 mg Take 1 capsule by mouth once daily. 30 minutes after the same meal each day. pravastatin (PRAVACHOL) 20 mg tablet Take 1 tablet by mouth once daily. pantoprazole DR (PROTONIX) 40 mg tablet Take 1 tablet by mouth once daily. amitriptyline (ELAVIL) 25 mg tablet Take 1 tablet by mouth daily at bedtime. hydroCHLOROthiazide (HYDRODIURIL, ESIDRIX) 25 mg tablet Take 1 tablet by mouth once daily. aspirin, enteric coated (ASPIRIN, ENTERIC COATED) 81 mg EC tablet Take 1 tablet by mouth once daily. Cholecalciferol, Vitamin D3, 125 mcg (5,000 unit) cap Take 1 capsule by mouth once daily. metFORMIN (GLUCOPHAGE) 500 mg tablet Take 1 tablet by mouth twice daily with meals. naproxen (NAPROSYN) 500 mg tablet Take 1 tablet by mouth twice daily as needed for pain. As needed for pain levETIRAcetam (KEPPRA) 500 mg tablet Take 1 tablet by mouth twice daily. Per Dr. Burnett insulin glargine (LANTUS SOLOSTAR U-100 INSULIN) 100 unit/mL (3 mL) Inject 10 Units subcutaneously daily at bedtime. amLODIPine (NORVASC) 10 mg tablet Take 1 tablet by mouth once daily. PER HEART GROUP. GAS RELIEF 80, SIMETHICONE, ORAL Take 1 tablet by mouth three times daily. latanoprost (XALATAN) 0.005 % ophthalmic solution Use 1 Drop in both eyes daily at bedtime. lactulose (DUPHALAC, CONSTULOSE) 10 gram/15 mL solution docosahexaenoic acid/epa (FISH OIL ORAL) Take by mouth once daily. fluticasone propionate (FLONASE NASAL) Use in the nose once daily. Multivitamin capsule Take 1 capsule by mouth once daily. SOFT LENS RINSE-STORE SOLUTION (SALINE MISC) nitroglycerin sublingual (NITROQUICK) 0.4 mg SL tablet Dissolve 0.4 mg under the tongue every 5 minutes as needed. No current facility-administered medications for this visit. Objective BP 121/83 (BP Site: Left Arm, BP Position: Sitting, BP Cuff Size: Large Adult) Pulse 109 Resp 16 Wt 82.6 kg (182 lb) BMI 26.11 kg/m Physical Exam Constitutional: General: He is not in acute distress. Appearance: He is not ill-appearing or diaphoretic. Eyes: General: No scleral icterus. Conjunctiva/sclera: Conjunctivae normal. Cardiovascular: Rate and Rhythm: Regular rhythm. Tachycardia present. Heart sounds: No murmur heard. No gallop. Pulmonary: Effort: No respiratory distress. Breath sounds: Normal breath sounds. No wheezing or rales. Abdominal: Palpations: Abdomen is soft. Tenderness: There is no abdominal tenderness. Musculoskeletal: Right lower leg: No edema. Neurological: General: No focal deficit present. Mental Status: He is alert. Component Latest Ref Rng & Units 02/06/2023 Glucose, Point of Care 74 - 99 mg/dL 397 (A) Component Latest Ref Rng & Units 01/25/2023 Protein, Total 6.3 - 8.0 g/dL 6.9 Albumin 3.9 - 4.9 g/dL 4.3 Calcium 8.5 - 10.2 mg/dL 10.1 Bilirubin, Total 0.2 - 1.3 mg/dL 0.4 Alkaline Phosphatase 38 - 113 U/L 70 AST 14 - 40 U/L 17 ALT 10 - 54 U/L 19 Glucose 74 - 99 mg/dL 291 (H) BUN 9 - 24 mg/dL 16 Creatinine 0.73 - 1.22 mg/dL 1.01 Sodium 136 - 144 mmol/L 133 (L) Potassium 3.7 - 5.1 mmol/L 4.1 Chloride 97 - 105 mmol/L 95 (L) CO2 22 - 30 mmol/L 23 Anion Gap 9 - 18 mmol/L 15 eGFR >=60 mL/min/1.73m 87 WBC 3.70 - 11.00 k/uL 13.89 (H) RBC 4.20 - 6.00 m/uL 4.15 (L) Hemoglobin 13.0 - 17.0 g/dL 13.5 Hematocrit 39.0 - 51.0 % 40.6 MCV 80.0 - 100.0 fL 97.8 MCH 26.0 - 34.0 pg 32.5 MCHC 30.5 - 36.0 g/dL 33.3 RDW-CV 11.5 - 15.0 % 13.1 Platelet Count 150 - 400 k/uL 227 MPV 9.0 - 12.7 fL 10.6 Absolute nRBC <0.01 k/uL <0.01 Cholesterol, Total <200 mg/dL 201 (H) Triglyceride <150 mg/dL 169 (H) HDL Cholesterol >39 mg/dL 58 Non HDL Cholesterol <130 mg/dL 143 (H) Fasting Time hrs 13 VLDL Cholesterol <30 mg/dL 34 (H) TC:HDL Ratio <5.10 3.47 LDL Cholesterol <100 mg/dL 109 (H) LDL:HDL Ratio <2.54 1.88 Hemoglobin A1C 4.3 - 5.6 % 10.9 (H) Estimated Average Glucose mg/dL 266 Assessment and Plan 1. Nausea - ICD9: 787.02, ICD10: R11.0 (primary diagnosis) Drew diet. 2. Hypertension, essential - ICD9: 401.9, ICD10: I10 - good control - LOSARTAN 25 MG TABLET 3. 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 epilepticus, unspecified epilepsy type (HCC) - ICD9: 345.90, ICD10: G40.909 Stable. - MAGNESIUM OXIDE 400 MG (241.3 MG MAGNESIUM) TABLET 4. Alcohol-induced chronic pancreatitis (HCC) - ICD9: 577.1, ICD10: K86.0 Stable. 5. Dizziness - ICD9: 780.4, ICD10: R42 Dehydration. Hydration stressed. 6. Type 2 diabetes mellitus without complication, with long-term current use of insulin (HCC) - ICD9: 250.00, V58.67, ICD10: E11.9, Z79.4 - Uncontrolled - GLUCOSE, BLOOD (POC) - CONSULT TO OPTOMETRY - INSULIN GLARGINE (U-100) 100 UNIT/ML (3 ML) SUBCUTANEOUS PEN. Take extra 10 units at home today. Tomorrow increase to 14 units at bedtime. Self titration every 3 days by adding 2 units until most glucose readings are <140. Lobito Mcmanus MD documented in this encounter [facility] 01-25-2023 Miscellaneous Notes Noted. [facility] calling to report pt was seen at [facility] ED 01/21/23 for chest pain. She reports pt had a neg CT scan. Records in [facility] R[facility]al [facility] documented in this encounter [facility] 01-16-2023 Miscellaneous Notes Patient has been identified by name and date of : Yes, Provider Dr Mcmanus Date 01/16/23 Time 1628. Pharmacy phones for refill(s): Requested Prescriptions Pending Prescriptions Disp Refills gabapentin (NEURONTIN) 300 mg capsule 180 capsule 1 Sig: Take 1 capsule by mouth twice daily for 180 days. Date of last office visit in primary care: 12/09/22 Future visit: 02/06/23 Last 2 Encounter Wt Readings: Date: Wt: 12/15/2022 82.7 kg (182 lb 6.4 oz) 11/07/2022 86.2 kg (190 lb) Previous labs/tests for medication: Blood Pressure: BUN (mg/dL) Date Value 05/19/2022 10 05/21/2021 14 Sodium (mmol/L) Date Value 05/19/2022 133 05/21/2021 137 Last 1 Encounter BP Readings: Date: BP: 12/15/2022 120/76 Liver Function: ALT (U/L) Date Value 05/19/2022 16 05/21/2021 63 AST (U/L) Date Value 05/19/2022 19 05/21/2021 39 Please advise. Thank you. Kendy Amador, RN documented in this encounter [facility] 12-29-2022 Miscellaneous Notes Noted. [facility] career coordinator, phoned to let pcp know, patient was seen in [facility] ER yesterday and treated for seizure, stomach/side pain. documented in this encounter [facility] 12-20-2022 Miscellaneous Notes Patient notified that he has 1 refill of Gabapentin 300mg, written 10/19/2022, x180 capsules, 1 refill. Patient will check with his pharmacy. Rhona Samayoa LPN Patient has been identified by name and date of : Yes Requested Prescriptions Pending Prescriptions Disp Refills gabapentin (NEURONTIN) 300 mg capsule 180 capsule 1 Sig: Take 1 capsule by mouth twice daily for 180 days. RX INSTRUCTIONS: Pharmacy initiated this request. No need to notify patient. Gin Martins [facility] documented in this encounter [facility] 12-16-2022 Miscellaneous Notes Patient notified.Arcelia Arias LPN Negative for COVID and flu documented in this encounter [facility] 12-15-2022 Note HNO ID: [id number] Author: Emmanuel Fritz MD Service: ? Author Type: Physician Type: Progress Notes Filed: 12/15/2022 12:46 PM Note Text: Patient presents with: Sore Throat: Cough, fever, chills, congestion x3 days HPI: Feeling sick for 3 days. Positive symptoms: Cough, Sore throat, Nasal Congestion, Rhinorrhea, Fever, Chills, nausea, constipation, Negative symptoms: Shortness of breath, Wheezing, OTC: Tylenol, stool softener PAST MEDICAL HISTORY Diagnosis Date Acute myocardial infarction of other specified sites, episode of care unspecified 09/2011 Myocardial Infarction Alcohol abuse 05/14/2021 Alcohol induced acute pancreatitis 05/14/2021 Cervical radiculopathy 10/21/2014 Cervical spondylosis 10/21/2014 Chronic cholecystitis 01/07/2019 Coronary artery disease Coronary artery disease involving [place] coronary artery of [place] heart without angina pectoris 09/25/2011 DDD (degenerative disc disease), cervical 10/21/2014 DDD (degenerative disc disease), thoracic 10/21/2014 Elevated PSA 12/01/2020 Esophageal reflux Gastroesophageal reflux Fatty liver due to alcoholism 03/01/2022 GERD without esophagitis 12/01/2020 Glaucoma Hypertension, essential 11/17/2020 Hypertriglyceridemia 12/01/2020 Idiopathic acute pancreatitis without infection or necrosis 02/27/2022 Mental disorder Mixed hyperlipidemia Hyperlipidemia 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 epilepticus (HCC) 12/01/2020 Posttraumatic stress disorder 03/10/2022 Preglaucoma ocular hypertension 10/05/2021 Prostate cancer (HCC) 01/26/2021 Recurrent pancreatitis 07/13/2022 Type 2 diabetes mellitus without complication, with long-term current use of insulin (HCC) 11/17/2020 Vitamin D deficiency 12/01/2020 MEDICATIONS: Current Outpatient Medications Medication Sig losartan (COZAAR) 25 mg tablet Take 1 tablet by mouth once daily. magnesium oxide (MAG-OX) 400 mg (241.3 mg magnesium) tablet Take 1 tablet by mouth twice daily. predniSONE (DELTASONE) 20 mg tablet Take 1 tablet by mouth twice daily. ursodiol (AILYN 250) 250 mg tablet Take 1 tablet by mouth twice daily. Per [facility]. njjmry-fmbqfake-kjpmkyj (CREON) 12,000-38,000 -60,000 unit delayed release capsule Take 1 capsule by mouth three times daily with meals. loratadine (CLARITIN) 10 mg tablet Take 1 tablet by mouth once daily. escitalopram oxalate (LEXAPRO) 10 mg tablet Take 1 tablet by mouth once daily. levOCARNitine (CARNITOR) 330 mg tablet Take 330 mg by mouth twice daily. folic acid 1 mg tablet Take 1 mg by mouth three times daily. tamsulosin (FLOMAX) 0.4 mg Take 1 capsule by mouth once daily. 30 minutes after the same meal each day. pravastatin (PRAVACHOL) 20 mg tablet Take 1 tablet by mouth once daily. pantoprazole DR (PROTONIX) 40 mg tablet Take 1 tablet by mouth once daily. amitriptyline (ELAVIL) 25 mg tablet Take 1 tablet by mouth daily at bedtime. hydroCHLOROthiazide (HYDRODIURIL, ESIDRIX) 25 mg tablet Take 1 tablet by mouth once daily. aspirin, enteric coated (ASPIRIN, ENTERIC COATED) 81 mg EC tablet Take 1 tablet by mouth once daily. Cholecalciferol, Vitamin D3, 125 mcg (5,000 unit) cap Take 1 capsule by mouth once daily. metFORMIN (GLUCOPHAGE) 500 mg tablet Take 1 tablet by mouth twice daily with meals. gabapentin (NEURONTIN) 300 mg capsule Take 1 capsule by mouth twice daily for 180 days. naproxen (NAPROSYN) 500 mg tablet Take 1 tablet by mouth twice daily as needed for pain. As needed for pain levETIRAcetam (KEPPRA) 500 mg tablet Take 1 tablet by mouth twice daily. Per Dr. Burnett insulin glargine (LANTUS SOLOSTAR U-100 INSULIN) 100 unit/mL (3 mL) Inject 10 Units subcutaneously daily at bedtime. amLODIPine (NORVASC) 10 mg tablet Take 1 tablet by mouth once daily. PER HEART GROUP. GAS RELIEF 80, SIMETHICONE, ORAL Take 1 tablet by mouth three times daily. latanoprost (XALATAN) 0.005 % ophthalmic solution Use 1 Drop in both eyes daily at bedtime. lactulose (DUPHALAC, CONSTULOSE) 10 gram/15 mL solution docosahexaenoic acid/epa (FISH OIL ORAL) Take by mouth once daily. fluticasone propionate (FLONASE NASAL) Use in the nose once daily. Multivitamin capsule Take 1 capsule by mouth once daily. SOFT LENS RINSE-STORE SOLUTION (SALINE MISC) nitroglycerin sublingual (NITROQUICK) 0.4 mg SL tablet Dissolve 0.4 mg under the tongue every 5 minutes as needed. No current facility-administered medications for this visit. ALLERGIES: ALLERGIES Allergen Reactions Cyclobenzaprine Itching Lisinopril Swelling mouth and throat Narcotics [Opioids * Itching Tramadol Itching Vicodin [Hydrocodon* Swelling mouth and throat VITALS: BP 120/76 Pulse (!) 122 Temp 36.8 ?C (98.3 ?F) Resp 18 Wt 82.7 kg (182 lb 6.4 oz) SpO2 98% BMI 26.17 kg/m? PHYSICAL EXAM: GEN: pleasant, alert, mildly ill appearing HEENT: PERRL, EOMI, conjunctiva clear Ears: Bilateral cerumen impact (more content not included)... [facility] 12-15-2022 History of Present illness Narrative Patient presents with: Sore Throat: Cough, fever, chills, congestion x3 days HPI: Feeling sick for 3 days. Positive symptoms: Cough, Sore throat, Nasal Congestion, Rhinorrhea, Fever, Chills, nausea, constipation, Negative symptoms: Shortness of breath, Wheezing, OTC: Tylenol, stool softener PAST MEDICAL HISTORY Diagnosis Date Acute myocardial infarction of other specified sites, episode of care unspecified 09/2011 Myocardial Infarction Alcohol abuse 05/14/2021 Alcohol induced acute pancreatitis 05/14/2021 Cervical radiculopathy 10/21/2014 Cervical spondylosis 10/21/2014 Chronic cholecystitis 01/07/2019 Coronary artery disease Coronary artery disease involving [place] coronary artery of [place] heart without angina pectoris 09/25/2011 DDD (degenerative disc disease), cervical 10/21/2014 DDD (degenerative disc disease), thoracic 10/21/2014 Elevated PSA 12/01/2020 Esophageal reflux Gastroesophageal reflux Fatty liver due to alcoholism 03/01/2022 GERD without esophagitis 12/01/2020 Glaucoma Hypertension, essential 11/17/2020 Hypertriglyceridemia 12/01/2020 Idiopathic acute pancreatitis without infection or necrosis 02/27/2022 Mental disorder Mixed hyperlipidemia Hyperlipidemia 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 epilepticus (HCC) 12/01/2020 Posttraumatic stress disorder 03/10/2022 Preglaucoma ocular hypertension 10/05/2021 Prostate cancer (HCC) 01/26/2021 Recurrent pancreatitis 07/13/2022 Type 2 diabetes mellitus without complication, with long-term current use of insulin ([facility]) 11/17/2020 Vitamin D deficiency 12/01/2020 MEDICATIONS: Current Outpatient Medications Medication Sig losartan (COZAAR) 25 mg tablet Take 1 tablet by mouth once daily. magnesium oxide (MAG-OX) 400 mg (241.3 mg magnesium) tablet Take 1 tablet by mouth twice daily. predniSONE (DELTASONE) 20 mg tablet Take 1 tablet by mouth twice daily. ursodiol (AILYN 250) 250 mg tablet Take 1 tablet by mouth twice daily. Per [facility]. vvozqr-ziduwaaq-jspocrn (CREON) 12,000-38,000 -60,000 unit delayed release capsule Take 1 capsule by mouth three times daily with meals. loratadine (CLARITIN) 10 mg tablet Take 1 tablet by mouth once daily. escitalopram oxalate (LEXAPRO) 10 mg tablet Take 1 tablet by mouth once daily. levOCARNitine (CARNITOR) 330 mg tablet Take 330 mg by mouth twice daily. folic acid 1 mg tablet Take 1 mg by mouth three times daily. tamsulosin (FLOMAX) 0.4 mg Take 1 capsule by mouth once daily. 30 minutes after the same meal each day. pravastatin (PRAVACHOL) 20 mg tablet Take 1 tablet by mouth once daily. pantoprazole DR (PROTONIX) 40 mg tablet Take 1 tablet by mouth once daily. amitriptyline (ELAVIL) 25 mg tablet Take 1 tablet by mouth daily at bedtime. hydroCHLOROthiazide (HYDRODIURIL, ESIDRIX) 25 mg tablet Take 1 tablet by mouth once daily. aspirin, enteric coated (ASPIRIN, ENTERIC COATED) 81 mg EC tablet Take 1 tablet by mouth once daily. Cholecalciferol, Vitamin D3, 125 mcg (5,000 unit) cap Take 1 capsule by mouth once daily. metFORMIN (GLUCOPHAGE) 500 mg tablet Take 1 tablet by mouth twice daily with meals. gabapentin (NEURONTIN) 300 mg capsule Take 1 capsule by mouth twice daily for 180 days. naproxen (NAPROSYN) 500 mg tablet Take 1 tablet by mouth twice daily as needed for pain. As needed for pain levETIRAcetam (KEPPRA) 500 mg tablet Take 1 tablet by mouth twice daily. Per Dr. Burnett insulin glargine (LANTUS SOLOSTAR U-100 INSULIN) 100 unit/mL (3 mL) Inject 10 Units subcutaneously daily at bedtime. amLODIPine (NORVASC) 10 mg tablet Take 1 tablet by mouth once daily. PER HEART GROUP. GAS RELIEF 80, SIMETHICONE, ORAL Take 1 tablet by mouth three times daily. latanoprost (XALATAN) 0.005 % ophthalmic solution Use 1 Drop in both eyes daily at bedtime. lactulose (DUPHALAC, CONSTULOSE) 10 gram/15 mL solution docosahexaenoic acid/epa (FISH OIL ORAL) Take by mouth once daily. fluticasone propionate (FLONASE NASAL) Use in the nose once daily. Multivitamin capsule Take 1 capsule by mouth once daily. SOFT LENS RINSE-STORE SOLUTION (SALINE MISC) nitroglycerin sublingual (NITROQUICK) 0.4 mg SL tablet Dissolve 0.4 mg under the tongue every 5 minutes as needed. No current facility-administered medications for this visit. ALLERGIES: ALLERGIES Allergen Reactions Cyclobenzaprine Itching Lisinopril Swelling mouth and throat Narcotics [Opioids * Itching Tramadol Itching Vicodin [Hydrocodon* Swelling mouth and throat VITALS: BP 120/76 Pulse (!) 122 Temp 36.8 C (98.3 F) Resp 18 Wt 82.7 kg (182 lb 6.4 oz) SpO2 98% BMI 26.17 kg/m PHYSICAL EXAM: GEN: pleasant, alert, mildly ill appearing HEENT: PERRL, EOMI, conjunctiva clear Ears: Bilateral cerumen impaction Sinuses: non-tender frontal sinus, non-tender maxillary sinuses Throat: moist mucous membranes, mild erythema, no exudate Neck: supple, no thyromegaly, no lymphadenopathy HEART: regular rate and rhythm, no murmurs LUNGS: clear to auscultation, no wheezes or crackles, no increased WOB ASSESSMENT/PLAN: 1. Sore throat - ICD9: 462, ICD10: J02.9 (primary diagnosis) - STREP A MOLECULAR (POC) - negative - 2019 CORONAVIRUS 2. URI, acute - ICD9: 465.9, ICD10: J06.9 - suspect viral URI, differential includes COVID-19. - Discussed supportive care treatment with home isolation, rest, cold medicine, and analgesia. - Red flags to seek further treatment include chest pain, shortness of breath, and lethargy; in the ER if severe. - 2019 CORONAVIRUS He will use wax softening drops. Emmanuel Fritz MD documented in this encounter [facility] 12-12-2022 Miscellaneous Notes Patient has been identified by name and date of : Yes, Provider Joel Date 12-12-22 Time 10:59 am Pharmacy phones for refill(s): Requested Prescriptions Pending Prescriptions Disp Refills losartan (COZAAR) 25 mg tablet 90 tablet 0 Sig: Take 1 tablet by mouth once daily. magnesium oxide (MAG-OX) 400 mg (241.3 mg magnesium) tablet 180 tablet 0 Sig: Take 1 tablet by mouth twice daily. Date of last office visit with pcp: 12-06-22. Next appt: 02-06-23 Last 2 Encounter Wt Readings: Date: Wt: 11/07/2022 86.2 kg (190 lb) 08/19/2022 86.6 kg (191 lb) Previous labs/tests for medication: Blood Pressure: BUN (mg/dL) Date Value 05/19/2022 10 05/21/2021 14 Sodium (mmol/L) Date Value 05/19/2022 133 05/21/2021 137 Last 1 Encounter BP Readings: Date: BP: 11/07/2022 134/80 Blood Counts: WBC (k/uL) Date Value 05/19/2022 13.78 05/21/2021 11.06 RBC (m/uL) Date Value 05/19/2022 4.87 05/21/2021 4.28 Hematocrit (%) Date Value 05/19/2022 45.0 05/21/2021 39.4 Hemoglobin (g/dL) Date Value 05/19/2022 15.2 05/21/2021 13.1 Platelet Count (k/uL) Date Value 05/19/2022 222 05/21/2021 283 Liver Function: ALT (U/L) Date Value 05/19/2022 16 05/21/2021 63 AST (U/L) Date Value 05/19/2022 19 05/21/2021 39 Please advise. Thank you. Tonio Jackson RN documented in this encounter [facility] 12-09-2022 Note HNO ID: [id number] Author: Lobito Mcmanus MD Service: ? Author Type: Physician Type: Progress Notes Filed: 12/09/2022 12:44 PM Note Text: This note was created using NoteWriter. Subjective Transitional Care Management Progress Note The patients TCM visit was performed within the 7 days of discharge. Patient's Date of discharge: 12/02/22 Date of initial coordinator contact after discharge: 12/06/22 Discharge diagnosis: acute on chronic pancreatitis. Medication review completed Yes Lobito Mcmanus MD Provider Documentation: In follow-up of hospitalization, Bronson Ochoa is a 57 year old male with the chief complaint of transition of care. I have reviewed the patient?s last hospital course including diagnostic testing performed during this hospitalization, their discharge medications, and my assessment and plan with the patient and any family members present at today?s visit. Bronson Ochoa is a 57 year old male admitted 11/29/22 for another bout of pancreatitis. He was managed with IV fluids, IV pain medications, with rapid improvement. Due to recurrent nature of pancreatitis, he was discharged on prednisone for 30 days pending autoimmune test results. He will follow up with Dr. Santamaria. He did not need oxycodone long. Review of Systems Constitutional: Negative for appetite change and fever. HENT: Negative. Respiratory: Negative for cough, chest tightness and shortness of breath. Cardiovascular: Negative for chest pain, palpitations and leg swelling. Gastrointestinal: Positive for abdominal pain. Negative for diarrhea, nausea and vomiting. Genitourinary: Negative. Musculoskeletal: Positive for back pain and neck pain. Neurological: Negative. Psychiatric/Behavioral: Negative. 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 Coronary Artery Disease Involving [place] Coronary Artery of [place] Heart Without Angina Pectoris Posttraumatic Stress Disorder Lower Urinary Tract Symptoms (Luts) Alcohol-Induced Chronic Pancreatitis (Hcc) Fatty Liver Due to Alcoholism Social History Tobacco Use Smoking status: Former Packs/day: 0.50 Years: 20.00 Pack years: 10.00 Types: Cigarettes Quit date: 09/25/2011 Years since quittin.2 Smokeless tobacco: Never Tobacco comments: Quit age 33 Vaping Use Vaping Use: Never used Substance Use Topics Alcohol use: Not Currently Alcohol/week: 3.0 standard drinks Types: 3 Cans of Beer (12oz) per week Comment: quit 03/04/2022 Drug use: Never Current Outpatient Medications Medication Sig ktyerb-nhpjoboi-wdqtqvt (CREON) 12,000-38,000 -60,000 unit delayed release capsule Take 1 capsule by mouth three times daily with meals. loratadine (CLARITIN) 10 mg tablet Take 1 tablet by mouth once daily. escitalopram oxalate (LEXAPRO) 10 mg tablet Take 1 tablet by mouth once daily. levOCARNitine (CARNITOR) 330 mg tablet Take 330 mg by mouth twice daily. folic acid 1 mg tablet Take 1 mg by mouth three times daily. tamsulosin (FLOMAX) 0.4 mg Take 1 capsule by mouth once daily. 30 minutes after the same meal each day. pravastatin (PRAVACHOL) 20 mg tablet Take 1 tablet by mouth once daily. pantoprazole DR (PROTONIX) 40 mg tablet Take 1 tablet by mouth once daily. amitriptyline (ELAVIL) 25 mg tablet Take 1 tablet by mouth daily at bedtime. hydroCHLOROthiazide (HYDRODIURIL, ESIDRIX) 25 mg tablet Take 1 tablet by mouth once daily. aspirin, enteric coated (ASPIRIN, ENTERIC COATED) 81 mg EC tablet Take 1 tablet by mouth once daily. Cholecalciferol, Vitamin D3, 125 mcg (5,000 unit) cap Take 1 capsule by mouth once daily. metFORMIN (GLUCOPHAGE) 500 mg tablet Take 1 tablet by mouth twice daily with meals. gabapentin (NEURONTIN) 300 mg capsule Take 1 capsule by mouth twice daily for 180 days. losartan (COZAAR) 25 mg tablet Take 1 tablet by mouth once daily. magnesium oxide (MAG-OX) 400 mg (241.3 mg magnesium) tablet Take 1 tablet by mouth twice daily. naproxen (NAPROSYN) 500 mg tablet Take 1 tablet by mouth twice daily as needed for pain. As needed for pain levETIRAcetam (KEPPRA) 500 mg tablet Take 1 tablet by mouth twice daily. Per Dr. Burnett insulin glargine (LANTUS SOLOSTAR U-100 INSULIN) 100 unit/mL (3 mL) Inject 10 Units subcutaneously daily at bedtime. amLODIPine (NORVASC) 10 mg tablet Take 1 tablet by mouth once daily. PER HEART GROUP. GAS RELIEF 80, SIMETHICONE, ORAL Take 1 tablet by mouth three times daily. latanoprost (XALATAN) 0.005 % ophthalmic solution Use 1 Drop in both eyes daily at bedtime. (more content not included)... [facility] 12-09-2022 History of Present illness Narrative This note was created using eCertriter. Subjective Transitional Care Management Progress Note The patients TCM visit was performed within the 7 days of discharge. Patient's Date of discharge: 12/02/22 Date of initial coordinator contact after discharge: 12/06/22 Discharge diagnosis: acute on chronic pancreatitis. Medication review completed Yes Lobito Mcmanus MD Provider Documentation: In follow-up of hospitalization, Bronson Ochoa is a 57 year old male with the chief complaint of transition of care. I have reviewed the patient s last hospital course including diagnostic testing performed during this hospitalization, their discharge medications, and my assessment and plan with the patient and any family members present at today s visit. Bronson Ochoa is a 57 year old male admitted 11/29/22 for another bout of pancreatitis. He was managed with IV fluids, IV pain medications, with rapid improvement. Due to recurrent nature of pancreatitis, he was discharged on prednisone for 30 days pending autoimmune test results. He will follow up with Dr. Santamaria. He did not need oxycodone long. Review of Systems Constitutional: Negative for appetite change and fever. HENT: Negative. Respiratory: Negative for cough, chest tightness and shortness of breath. Cardiovascular: Negative for chest pain, palpitations and leg swelling. Gastrointestinal: Positive for abdominal pain. Negative for diarrhea, nausea and vomiting. Genitourinary: Negative. Musculoskeletal: Positive for back pain and neck pain. Neurological: Negative. Psychiatric/Behavioral: Negative. 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 Coronary Artery Disease Involving [place] Coronary Artery of [place] Heart Without Angina Pectoris Posttraumatic Stress Disorder Lower Urinary Tract Symptoms (Luts) Alcohol-Induced Chronic Pancreatitis (Hcc) Fatty Liver Due to Alcoholism Social History Tobacco Use Smoking status: Former Packs/day: 0.50 Years: 20.00 Pack years: 10.00 Types: Cigarettes Quit date: 09/25/2011 Years since quittin.2 Smokeless tobacco: Never Tobacco comments: Quit age 33 Vaping Use Vaping Use: Never used Substance Use Topics Alcohol use: Not Currently Alcohol/week: 3.0 standard drinks Types: 3 Cans of Beer (12oz) per week Comment: quit 03/04/2022 Drug use: Never Current Outpatient Medications Medication Sig thzccz-kjlbqaio-ruqgtal (CREON) 12,000-38,000 -60,000 unit delayed release capsule Take 1 capsule by mouth three times daily with meals. loratadine (CLARITIN) 10 mg tablet Take 1 tablet by mouth once daily. escitalopram oxalate (LEXAPRO) 10 mg tablet Take 1 tablet by mouth once daily. levOCARNitine (CARNITOR) 330 mg tablet Take 330 mg by mouth twice daily. folic acid 1 mg tablet Take 1 mg by mouth three times daily. tamsulosin (FLOMAX) 0.4 mg Take 1 capsule by mouth once daily. 30 minutes after the same meal each day. pravastatin (PRAVACHOL) 20 mg tablet Take 1 tablet by mouth once daily. pantoprazole DR (PROTONIX) 40 mg tablet Take 1 tablet by mouth once daily. amitriptyline (ELAVIL) 25 mg tablet Take 1 tablet by mouth daily at bedtime. hydroCHLOROthiazide (HYDRODIURIL, ESIDRIX) 25 mg tablet Take 1 tablet by mouth once daily. aspirin, enteric coated (ASPIRIN, ENTERIC COATED) 81 mg EC tablet Take 1 tablet by mouth once daily. Cholecalciferol, Vitamin D3, 125 mcg (5,000 unit) cap Take 1 capsule by mouth once daily. metFORMIN (GLUCOPHAGE) 500 mg tablet Take 1 tablet by mouth twice daily with meals. gabapentin (NEURONTIN) 300 mg capsule Take 1 capsule by mouth twice daily for 180 days. losartan (COZAAR) 25 mg tablet Take 1 tablet by mouth once daily. magnesium oxide (MAG-OX) 400 mg (241.3 mg magnesium) tablet Take 1 tablet by mouth twice daily. naproxen (NAPROSYN) 500 mg tablet Take 1 tablet by mouth twice daily as needed for pain. As needed for pain levETIRAcetam (KEPPRA) 500 mg tablet Take 1 tablet by mouth twice daily. Per Dr. Burnett insulin glargine (LANTUS SOLOSTAR U-100 INSULIN) 100 unit/mL (3 mL) Inject 10 Units subcutaneously daily at bedtime. amLODIPine (NORVASC) 10 mg tablet Take 1 tablet by mouth once daily. PER HEART GROUP. GAS RELIEF 80, SIMETHICONE, ORAL Take 1 tablet by mouth three times daily. latanoprost (XALATAN) 0.005 % ophthalmic solution Use 1 Drop in both eyes daily at bedtime. lactulose (DUPHALAC, CONSTULOSE) 10 gram/15 mL solution docosahexaenoic acid/epa (FISH OIL ORAL) Take by mouth once daily. fluticasone propionate (FLONASE NASAL) Use in the nose once daily. Multivitamin capsule Take 1 capsule by mouth once daily. SOFT LENS RINSE-STORE SOLUTION (SALINE MISC) nitroglycerin sublingual (NITROQUICK) 0.4 mg SL tablet Dissolve 0.4 mg under the tongue every 5 minutes as needed. predniSONE (DELTASONE) 20 mg tablet Take 1 tablet by mouth twice daily. ursodiol (AILYN 250) 250 mg tablet Take 1 tablet by mouth twice daily. Per [facility]. No current facility-administered medications for this visit. Objective BP (P) 122/76 (BP Site: Left Arm, BP Position: Sitting, BP Cuff Size: Large Adult) Pulse (P) 109 Wt (P) 83 kg (183 lb) BMI (P) 26.26 kg/m Physical Exam Constitutional: General: He is not in acute distress. Appearance: He is not ill-appearing or diaphoretic. Eyes: General: No scleral icterus. Conjunctiva/sclera: Conjunctivae normal. Cardiovascular: Rate and Rhythm: Normal rate and regular rhythm. Heart sounds: No murmur heard. No gallop. Pulmonary: Effort: No respiratory distress. Breath sounds: Normal breath sounds. No wheezing or rales. Abdominal: General: There is no distension. Palpations: Abdomen is soft. Tenderness: There is no abdominal tenderness. Musculoskeletal: Right lower leg: No edema. Left lower leg: No edema. Neurological: General: No focal deficit present. Mental Status: He is alert. Gait: Gait normal. Psychiatric: Mood and Affect: Mood normal. Assessment and Plan 1. Alcohol-induced chronic pancreatitis (HCC) - ICD9: 577.1, ICD10: K86.0 (primary diagnosis) - PREDNISONE 20 MG TABLET x 30 days per GI. 2. Type 2 diabetes mellitus without complication, with long-term current use of insulin (HCC) - ICD9: 250.00, V58.67, ICD10: E11.9, Z79.4 - Controlled even on prednisone per patient report. - Continue current medications 3. Hypertension, essential - ICD9: 401.9, ICD10: I10 - good control 4. Cervical spondylosis - ICD9: 721.0, ICD10: M47.812 He still had naproxen refills. 5. Nonintractable generalized 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 (HCC) - ICD9: 345.90, ICD10: G40.[address] Burnett. 6. Fatty liver due to alcoholism - ICD9: 571.0, ICD10: K70.0 Medication list updated. This was apparently started by GI several months ago for 'liver fibrosis'. - URSODIOL 250 MG TABLET Lobito Mcmanus MD documented in this encounter [facility] 12-06-2022 Note HNO ID: [id number] Author: Adore Perry LPN Service: ? Author Type: ? Type: Progress Notes Filed: 12/08/2022 8:34 AM Note Text: Message left again for return call from pt. [facility] 12-06-2022 History of Present illness Narrative Message left again for return call from pt. Message left for pt to return call to a nurse to complete TCM note. documented in this encounter [facility] 12-06-2022 Note HNO ID: [id number] Author: Adore Perry LPN Service: ? Author Type: ? Type: Progress Notes Filed: 12/08/2022 8:34 AM Note Text: Message left for pt to return call to a nurse to complete TCM note. [facility] 12-06-2022 Note Patient Outreach (IN TMWS) NITHINBRONSON ([id number]) 1965 M Date Time Provider Department 12/06/22 LOBITO MCMANUS INTEJ During your visit today, we recorded the following information about you: Adore Vicky BEARDEN 12/08/2022 8:34 AM Signed Message left for pt to return call to a nurse to complete TCM note. Adore Vicky BEARDEN 12/08/2022 8:34 AM Signed Message left again for return call from pt. Allergies As of Date: 12/06/2022 Noted Allergy Reaction CYCLOBENZAPRINE 03/26/2021 9 - Itching LISINOPRIL 05/07/2013 7 - Swelling Comments: mouth and throat NARCOTICS (OPIOIDS - MORPHINE KELLY*11/27/2020 9 - Itching TRAMADOL 01/01/2016 9 - Itching VICODIN (HYDROCODONE-ACETAMINOPHE*05/07/20 13 7 - Swelling Comments: mouth and throat Date Reviewed: 11/07/2022 Reviewed by: Alis Dunne APRN.MEDICAL IMAGING DIRECTOR - Fully Assessed Reason for Visit: Transition Of Care [4074] Prescriptions as of 12/08/2022 - iqxqkq-cgeyhwbk-ztkefdi (CREON) 12,000-38,000 -60,000 unit delayed release capsule Take 1 capsule by mouth three times daily with meals. - loratadine (CLARITIN) 10 mg tablet Take 1 tablet by mouth once daily. - escitalopram oxalate (LEXAPRO) 10 mg tablet Take 1 tablet by mouth once daily. - levOCARNitine (CARNITOR) 330 mg tablet Take 330 mg by mouth twice daily. - folic acid 1 mg tablet Take 1 mg by mouth three times daily. - tamsulosin (FLOMAX) 0.4 mg Take 1 capsule by mouth once daily. 30 minutes after the same meal each day. - pravastatin (PRAVACHOL) 20 mg tablet Take 1 tablet by mouth once daily. - pantoprazole DR (PROTONIX) 40 mg tablet Take 1 tablet by mouth once daily. - amitriptyline (ELAVIL) 25 mg tablet Take 1 tablet by mouth daily at bedtime. - hydroCHLOROthiazide (HYDRODIURIL, ESIDRIX) 25 mg tablet Take 1 tablet by mouth once daily. - aspirin, enteric coated (ASPIRIN, ENTERIC COATED) 81 mg EC tablet Take 1 tablet by mouth once daily. - Cholecalciferol, Vitamin D3, 125 mcg (5,000 unit) cap Take 1 capsule by mouth once daily. - metFORMIN (GLUCOPHAGE) 500 mg tablet Take 1 tablet by mouth twice daily with meals. - gabapentin (NEURONTIN) 300 mg capsule Take 1 capsule by mouth twice daily for 180 days. - losartan (COZAAR) 25 mg tablet Take 1 tablet by mouth once daily. - magnesium oxide (MAG-OX) 400 mg (241.3 mg magnesium) tablet Take 1 tablet by mouth twice daily. - naproxen (NAPROSYN) 500 mg tablet Take 1 tablet by mouth twice daily as needed for pain. As needed for pain - levETIRAcetam (KEPPRA) 500 mg tablet Take 1 tablet by mouth twice daily. Per Dr. Burnett - insulin glargine (LANTUS SOLOSTAR U-100 INSULIN) 100 unit/mL (3 mL) Inject 10 Units subcutaneously daily at bedtime. - amLODIPine (NORVASC) 10 mg tablet Take 1 tablet by mouth once daily. PER HEART GROUP. - GAS RELIEF 80, SIMETHICONE, ORAL Take 1 tablet by mouth three times daily. - latanoprost (XALATAN) 0.005 % ophthalmic solution Use 1 Drop in both eyes daily at bedtime. - lactulose (DUPHALAC, CONSTULOSE) 10 gram/15 mL solution - docosahexaenoic acid/epa (FISH OIL ORAL) Take by mouth once daily. - fluticasone propionate (FLONASE NASAL) Use in the nose once daily. - Multivitamin capsule Take 1 capsule by mouth once daily. - SOFT LENS RINSE-STORE SOLUTION (SALINE MISC) - nitroglycerin sublingual (NITROQUICK) 0.4 mg SL tablet Dissolve 0.4 mg under the tongue every 5 minutes as needed. Problem List As Of Date 12/06/2022 Noted Resolved DDD (degenerative disc disease), thoracic [M51.*10/21/2014 05/16/2022 Cervical radiculopathy [M54.12] 10/21/2014 Cervical strain [S16.1XXA] 10/21/2014 03/10/2022 Cervical spondylosis [M47.812] 10/21/2014 DDD (degenerative disc disease), cervical [M50.*10/21/2014 03/10/2022 Right hip pain [M25.551] 01/19/2015 05/16/2022 Lumbago [M54.50] 01/19/2015 NO SHOW 06/05/2015 03/10/2022 Type 2 diabetes mellitus without complication, *11/17/2020 Hypertension, essential [I10] 11/17/2020 Mixed hyperlipidemia [E78.2] GERD without esophagitis [K21.9] 12/01/2020 Vitamin D deficiency [E55.9] 12/01/2020 Seasonal allergic rhinitis due to pollen [J30.1]12/01/2020 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 epilepti*12/01/2020 Elevated PSA [R97.20] 12/01/2020 05/16/2022 Prostate cancer (HCC) [C61] 01/26/2021 Preglaucoma ocular hypertension [H40.059] 10/05/2021 Type 2 diabetes mellitus without retinopathy (H*10/05/2021 08/16/2022 Optic cupping of both eyes [H47.233] 10/05/2021 Coronary artery disease involving [place]ana*09/25/2011 Posttraumatic stress disorder [F43.10] 03/10/2022 Lower urinary tract symptoms (LUTS) [R39.9] 10/15/2021 Alcohol-induced chronic pancreatitis (HCC) [K86*07/13/2022 Encounter Status:Closed by ADORE PERRY LPN on 12/08/22 [facility] 12-01-2022 Miscellaneous Notes Spoke to [facility], they did receive RX and will contact Patient when it is ready for pickup. Rhona Samayoa LPN Patient's request for medication is as follows Requested Prescriptions Signed Prescriptions Disp Refills dyicli-tozjmbxl-xezoijs (CREON) 12,000-38,000 -60,000 unit delayed release capsule 90 capsule 5 Sig: Take 1 capsule by mouth three times daily with meals. Authorizing Provider: LOBITO MCMANUS Order entered - please phone pharmacy and notify patient. Lobito Mcmanus MD [place] [facility] reports patient was prescribed Creon 63194 units 1 capsule 3 times day before meals and/or snacks, #90 with refills, in August, by a hospital. Patient needs refill. Asking if pcp would send refill for this medication? It is not on patient's current med list. documented in this encounter [facility] 11-14-2022 Miscellaneous Notes Patient has been identified by name and date of : Yes, Mariella Lenz RN Date 11/14/2022 Time 1:36 pm Pharmacy phones for refill(s): Requested Prescriptions Pending Prescriptions Disp Refills loratadine (CLARITIN) 10 mg tablet 90 tablet 1 Sig: Take 1 tablet by mouth once daily. escitalopram oxalate (LEXAPRO) 10 mg tablet 30 tablet 5 Sig: Take 1 tablet by mouth once daily. Date of last office visit with pcp: 11/07/2022 Future appt: 02/06/2023 Last 2 Encounter Wt Readings: Date: Wt: 11/07/2022 86.2 kg (190 lb) 08/19/2022 86.6 kg (191 lb) Previous labs/tests for medication: Blood Pressure: BUN (mg/dL) Date Value 05/19/2022 10 05/21/2021 14 Sodium (mmol/L) Date Value 05/19/2022 133 05/21/2021 137 Last 1 Encounter BP Readings: Date: BP: 11/07/2022 134/80 Liver Function: ALT (U/L) Date Value 05/19/2022 16 05/21/2021 63 AST (U/L) Date Value 05/19/2022 19 05/21/2021 39 Please advise. Thank you. Mariella Lenz RN documented in this encounter [facility] 11-07-2022 Note HNO ID: [id number] Author: Alis Dunne APRN.CNP Service: ? Author Type: Nurse Practitioner Type: Progress Notes Filed: 11/08/2022 8:09 AM Note Text: CC: Patient presents with: ED Follow-up HPI Bronson Ochoa is a 57 year old male who presents today hospital follow-up. Patient was admitted to [facility] from 10-26 to 2 for acute on chronic pancreatitis. Lipase was elevated at 930 on admission. No imaging was done. Patient has been abstaining from alcohol for the past few months.Today patient reports abdominal pain has mostly resolved. Still experiencing mild, intermittent pain in the epigastric region. Denies fever, chills, nausea, vomiting, diarrhea, constipation, black/bloody stools, heartburn/reflux symptoms or decreased appetite. He is already established with GI, Dr. Santamaria and has routine follow-up this month. Denies any concerns or issues today other than medication refills. REVIEW OF SYSTEMS See HPI PAST MEDICAL HISTORY Diagnosis Date Acute myocardial infarction of other specified sites, episode of care unspecified 09/2011 Myocardial Infarction Alcohol abuse 05/14/2021 Alcohol induced acute pancreatitis 05/14/2021 Cervical radiculopathy 10/21/2014 Cervical spondylosis 10/21/2014 Chronic cholecystitis 01/07/2019 Coronary artery disease Coronary artery disease involving [place] coronary artery of [place] heart without angina pectoris 09/25/2011 DDD (degenerative disc disease), cervical 10/21/2014 DDD (degenerative disc disease), thoracic 10/21/2014 Elevated PSA 12/01/2020 Esophageal reflux Gastroesophageal reflux GERD without esophagitis 12/01/2020 Glaucoma Hypertension, essential 11/17/2020 Hypertriglyceridemia 12/01/2020 Idiopathic acute pancreatitis without infection or necrosis 02/27/2022 Mental disorder Mixed hyperlipidemia Hyperlipidemia 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 epilepticus (HCC) 12/01/2020 Posttraumatic stress disorder 03/10/2022 Preglaucoma ocular hypertension 10/05/2021 Prostate cancer (HCC) 01/26/2021 Recurrent pancreatitis 07/13/2022 Type 2 diabetes mellitus without complication, with long-term current use of insulin (HCC) 11/17/2020 Vitamin D deficiency 12/01/2020 PAST SURGICAL HISTORY Procedure Laterality Date COLONOSCOPY FLX DX W/COLLJ SPEC WHEN PFRMD 06/08/2019 repeat in 5 years due to family history of colon cancer ESOPHAGOGASTRODUODENOSCOPY TRANSORAL DIAGNOSTIC 08/31/2019 EGD LAPS SURG CHOLECYSTECTOMY W/CHOLANGIOGRAPHY 01/07/2019 LEFT HEART CATH,PERCUTANEOUS 10/31/2011 ALLERGIES Cyclobenzaprine, Lisinopril, Narcotics [Opioids - Morphine Analogues], Tramadol, and Vicodin [Hydrocodone-Acetaminophen] MEDICATIONS folic acid 1 mg tablet Take 1 mg by mouth three times daily. levOCARNitine (CARNITOR) 330 mg tablet Take 330 mg by mouth twice daily. gabapentin (NEURONTIN) 300 mg capsule Take 1 capsule by mouth twice daily for 180 days. losartan (COZAAR) 25 mg tablet Take 1 tablet by mouth once daily. magnesium oxide (MAG-OX) 400 mg (241.3 mg magnesium) tablet Take 1 tablet by mouth twice daily. naproxen (NAPROSYN) 500 mg tablet Take 1 tablet by mouth twice daily as needed for pain. As needed for pain levETIRAcetam (KEPPRA) 500 mg tablet Take 1 tablet by mouth twice daily. Per Dr. Burnett escitalopram oxalate (LEXAPRO) 10 mg tablet Take 1 tablet by mouth once daily. metFORMIN (GLUCOPHAGE) 500 mg tablet Take 1 tablet by mouth twice daily with meals. pravastatin (PRAVACHOL) 40 mg tablet Take 1 tablet by mouth once daily. pravastatin (PRAVACHOL) 20 mg tablet Take 1 tablet by mouth once daily. amitriptyline (ELAVIL) 25 mg tablet Take 1 tablet by mouth daily at bedtime. aspirin, enteric coated (ASPIRIN, ENTERIC COATED) 81 mg EC tablet Take 1 tablet by mouth once daily. pantoprazole DR (PROTONIX) 40 mg tablet Take 1 tablet by mouth once daily. Cholecalciferol, Vitamin D3, 125 mcg (5,000 unit) cap Take 1 capsule by mouth once daily. hydroCHLOROthiazide (HYDRODIURIL, ESIDRIX) 25 mg tablet Take 1 tablet by mouth once daily. tamsulosin (FLOMAX) 0.4 mg Take 1 capsule by mouth once daily. 30 minutes after the same meal each day. insulin glargine (LANTUS SOLOSTAR U-100 INSULIN) 100 unit/mL (3 mL) Inject 10 Units subcutaneously daily at bedtime. amLODIPine (NORVASC) 10 mg tablet Take 1 tablet by mouth once daily. PER HEART GROUP. GAS RELIEF 80, SIMETHICONE, ORAL Take 1 tablet by mouth three times daily. latanoprost (XALATAN) 0.005 % ophthalmic solution Use 1 Drop in both eyes daily at bedtime. lactulose (DUPHALAC, CONSTULOSE) 10 gram/15 mL solution docosahexaenoic acid/epa (FISH OIL ORAL) Take by mouth once daily. fluticasone propionate (FLONASE NASAL) Use in the nose once daily. Multivitamin capsule Take 1 capsule by mouth once daily. SOFT LENS RINSE-STORE SOLUTION (SALINE MISC) nitroglycerin sublingual (NITROQUICK) 0.4 mg SL tablet Dissolve 0.4 mg under the tongue every 5 minutes as neede (more content not included)... [facility] 11-07-2022 History of Present illness Narrative CC: Patient presents with: ED Follow-up HPI Bronson Ochoa is a 57 year old male who presents today hospital follow-up. Patient was [facility] [facility] on chronic pancreatitis. Lipase was elevated at 930 on admission. No imaging was done. Patient has been abstaining from alcohol for the past few months.Today patient reports abdominal pain has mostly resolved. Still experiencing mild, intermittent pain in the epigastric region. Denies fever, chills, nausea, vomiting, diarrhea, constipation, black/bloody stools, heartburn/reflux symptoms or decreased appetite. He is already established with Dr. Rosalio RIZVI and has routine follow-up this month. Denies any concerns or issues today other than medication refills. REVIEW OF SYSTEMS See HPI PAST MEDICAL HISTORY Diagnosis Date Acute myocardial infarction of other specified sites, episode of care unspecified 09/2011 Myocardial Infarction Alcohol abuse 05/14/2021 Alcohol induced acute pancreatitis 05/14/2021 Cervical radiculopathy 10/21/2014 Cervical spondylosis 10/21/2014 Chronic cholecystitis 01/07/2019 Coronary artery disease Coronary artery disease involving [place] coronary artery of [place] heart without angina pectoris 09/25/2011 DDD (degenerative disc disease), cervical 10/21/2014 DDD (degenerative disc disease), thoracic 10/21/2014 Elevated PSA 12/01/2020 Esophageal reflux Gastroesophageal reflux GERD without esophagitis 12/01/2020 Glaucoma Hypertension, essential 11/17/2020 Hypertriglyceridemia 12/01/2020 Idiopathic acute pancreatitis without infection or necrosis 02/27/2022 Mental disorder Mixed hyperlipidemia Hyperlipidemia 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 epilepticus (HCC) 12/01/2020 Posttraumatic stress disorder 03/10/2022 Preglaucoma ocular hypertension 10/05/2021 Prostate cancer (HCC) 01/26/2021 Recurrent pancreatitis 07/13/2022 Type 2 diabetes mellitus without complication, with long-term current use of insulin (HCC) 11/17/2020 Vitamin D deficiency 12/01/2020 PAST SURGICAL HISTORY Procedure Laterality Date COLONOSCOPY FLX DX W/COLLJ SPEC WHEN PFRMD 06/08/2019 repeat in 5 years due to family history of colon cancer ESOPHAGOGASTRODUODENOSCOPY TRANSORAL DIAGNOSTIC 08/31/2019 EGD LAPS SURG CHOLECYSTECTOMY W/CHOLANGIOGRAPHY 01/07/2019 LEFT HEART CATH,PERCUTANEOUS 10/31/2011 ALLERGIES Cyclobenzaprine, Lisinopril, Narcotics [Opioids - Morphine Analogues], Tramadol, and Vicodin [Hydrocodone-Acetaminophen] MEDICATIONS folic acid 1 mg tablet Take 1 mg by mouth three times daily. levOCARNitine (CARNITOR) 330 mg tablet Take 330 mg by mouth twice daily. gabapentin (NEURONTIN) 300 mg capsule Take 1 capsule by mouth twice daily for 180 days. losartan (COZAAR) 25 mg tablet Take 1 tablet by mouth once daily. magnesium oxide (MAG-OX) 400 mg (241.3 mg magnesium) tablet Take 1 tablet by mouth twice daily. naproxen (NAPROSYN) 500 mg tablet Take 1 tablet by mouth twice daily as needed for pain. As needed for pain levETIRAcetam (KEPPRA) 500 mg tablet Take 1 tablet by mouth twice daily. Per Dr. Burnett escitalopram oxalate (LEXAPRO) 10 mg tablet Take 1 tablet by mouth once daily. metFORMIN (GLUCOPHAGE) 500 mg tablet Take 1 tablet by mouth twice daily with meals. pravastatin (PRAVACHOL) 40 mg tablet Take 1 tablet by mouth once daily. pravastatin (PRAVACHOL) 20 mg tablet Take 1 tablet by mouth once daily. amitriptyline (ELAVIL) 25 mg tablet Take 1 tablet by mouth daily at bedtime. aspirin, enteric coated (ASPIRIN, ENTERIC COATED) 81 mg EC tablet Take 1 tablet by mouth once daily. pantoprazole DR (PROTONIX) 40 mg tablet Take 1 tablet by mouth once daily. Cholecalciferol, Vitamin D3, 125 mcg (5,000 unit) cap Take 1 capsule by mouth once daily. hydroCHLOROthiazide (HYDRODIURIL, ESIDRIX) 25 mg tablet Take 1 tablet by mouth once daily. tamsulosin (FLOMAX) 0.4 mg Take 1 capsule by mouth once daily. 30 minutes after the same meal each day. insulin glargine (LANTUS SOLOSTAR U-100 INSULIN) 100 unit/mL (3 mL) Inject 10 Units subcutaneously daily at bedtime. amLODIPine (NORVASC) 10 mg tablet Take 1 tablet by mouth once daily. PER HEART GROUP. GAS RELIEF 80, SIMETHICONE, ORAL Take 1 tablet by mouth three times daily. latanoprost (XALATAN) 0.005 % ophthalmic solution Use 1 Drop in both eyes daily at bedtime. lactulose (DUPHALAC, CONSTULOSE) 10 gram/15 mL solution docosahexaenoic acid/epa (FISH OIL ORAL) Take by mouth once daily. fluticasone propionate (FLONASE NASAL) Use in the nose once daily. Multivitamin capsule Take 1 capsule by mouth once daily. SOFT LENS RINSE-STORE SOLUTION (SALINE MISC) nitroglycerin sublingual (NITROQUICK) 0.4 mg SL tablet Dissolve 0.4 mg under the tongue every 5 minutes as needed. FAMILY HISTORY Problem Relation Age of Onset Diabetes Father Kidney Disease Father other (DDD lumbar) Father Diabetes Mother Ischemic Heart Disease Mother COPD Mother Stroke Mother Depression Mother Breast Cancer Sister Diabetes Brother Schizophrenia Brother Hypertension Half-brother Colon Cancer Half-brother Diabetes Half-brother other (Gout) Half-brother Sarcoidosis Half-brother Hypertension Half-brother No Known Problems Half-sister Hypertension Half-sister Aneurysm Half-sister Anxiety disorder Half-sister Depression Half-sister No Known Problems Half-sister Social History Tobacco Use Smoking status: Former Packs/day: 0.50 Years: 20.00 Pack years: 10.00 Types: Cigarettes Quit date: 09/25/2011 Years since quittin.1 Smokeless tobacco: Never Tobacco comments: Quit age 33 Vaping Use Vaping Use: Never used Substance Use Topics Alcohol use: Not Currently Alcohol/week: 3.0 standard drinks Types: 3 Cans of Beer (12oz) per week Comment: quit 03/04/2022 Drug use: Never PHYSICAL EXAM BP 134/80 Pulse 109 Resp 18 Wt 86.2 kg (190 lb) BMI 27.26 kg/m General Appearance: well appearing, in no acute distress, alert Lungs: Lungs clear to auscultation. No wheezing, rhonchi, rales. Heart: RRR without murmur, gallop, or rubs. No ectopy Soft, non-distended. mild epigastric abdominal tenderness with palpation. No guarding or rebound tenderness. Bowel sounds normal and active. DATA REVIEWED: Outside chart from [facility] admission in Care Everywhere reviewed. ASSESSMENT/PLAN: 1. Alcohol-induced chronic pancreatitis (HCC) - ICD9: 577.1, ICD10: K86.0 Doing well since discharge, pain is mild and intermittent. Continue to abstain from alcohol. Follow-up with GI as scheduled. Follow-up with PCP in 3 months or sooner if needed. Prescription instructions reviewed with patient as applicable. Potential red flag symptoms discussed with the patient. Reviewed appropriate action plan to take if red flag symptoms occur. Patient agreeable to treatment plan. Alis Dunne APRN.CNP documented in this encounter [facility] 10-25-2022 Miscellaneous Notes Noted. Souleymane Kelly APRN.CNP, ANMOL Estela qureshi stating patient was admitted to [facility] on 02/27 for Pancreatitis. documented in this encounter [facility] 10-17-2022 Miscellaneous Notes Patient has been identified by name and date of : Yes Requested Prescriptions Pending Prescriptions Disp Refills gabapentin (NEURONTIN) 300 mg capsule 180 capsule 3 Sig: Take 1 capsule by mouth twice daily for 90 days. LEV-08/19/22 Labs-05/19/22 NOV-none med filled 07/06/22 RX INSTRUCTIONS: Pharmacy initiated this request. No need to notify patient. Sarah Beth Macario Pss documented in this encounter [facility] 09-20-2022 Miscellaneous Notes Patient has been identified by name and date of : Yes, Provider Abimael Jackson RN Date 09-20-22 Time 11:12 am Pharmacy phones for refill(s): Requested Prescriptions Pending Prescriptions Disp Refills losartan (COZAAR) 25 mg tablet 90 tablet 0 Sig: Take 1 tablet by mouth once daily. magnesium oxide (MAG-OX) 400 mg (241.3 mg magnesium) tablet 180 tablet 0 Sig: Take 1 tablet by mouth twice daily. Date of last office visit with pcp: 08-19-22. Next appt: none Last 2 Encounter Wt Readings: Date: Wt: 08/19/2022 86.6 kg (191 lb) 05/16/2022 85.6 kg (188 lb 12.8 oz) Previous labs/tests for medication: Blood Pressure: BUN (mg/dL) Date Value 05/19/2022 10 05/21/2021 14 Sodium (mmol/L) Date Value 05/19/2022 133 05/21/2021 137 Last 1 Encounter BP Readings: Date: BP: 08/19/2022 129/87 Blood Counts: WBC (k/uL) Date Value 05/19/2022 13.78 05/21/2021 11.06 RBC (m/uL) Date Value 05/19/2022 4.87 05/21/2021 4.28 Hematocrit (%) Date Value 05/19/2022 45.0 05/21/2021 39.4 Hemoglobin (g/dL) Date Value 05/19/2022 15.2 05/21/2021 13.1 Platelet Count (k/uL) Date Value 05/19/2022 222 05/21/2021 283 Liver Function: ALT (U/L) Date Value 05/19/2022 16 05/21/2021 63 AST (U/L) Date Value 05/19/2022 19 05/21/2021 39 Please advise. Thank you. Tonio Jackson RN documented in this encounter [facility] 08-19-2022 Note HNO ID: [id number] Author: RT Eli(R) Service: Radiology Author Type: Technologist Type: Progress Notes Filed: 08/19/2022 5:09 PM Note Text: Radiology Service Progress Note PATIENT NAME: Bronson Ochoa DATE OF SERVICE: August 19, 2022 TIME: 4:58 PM PATIENT IDENTITY VERIFICATION COMPLETED USING TWO (2) IDENTIFIERS: Name and Date of confirmed by patient verbally. FALL SCREENING: Has the patient had 2 falls in the last year or 1 fall with injury or currently using an Ambulatory Assistive Device (Walker, Cane, Wheelchair, Crutches, etc.)? No PATIENT GENDER DATA: Male PATIENT RELEVANT IMPLANT DATA REVIEWED: Yes RADIOLOGY DEPARTMENT: General X-ray: Exam(s) Completed: Pelvis X-Ray: Pelvis with Hip Left PERIPHERAL IV DATA: Not applicable SIGNED BY: RT Eli(R) August 19, 2022 4:58 PM [facility] 08-19-2022 Note HNO ID: [id number] Author: Lobito Mcmanus MD Service: ? Author Type: Physician Type: Progress Notes Filed: 08/21/2022 2:18 PM Note Text: This note was created using NoteWriter. Subjective Bronson Ochoa is a 57 year old male here for follow up. His diabetes mellitus, hypertension, and lipids were controlled. Chronic back pain was stable. Mood was stable. Aside from chronic low back pain, he had chronic left hip pain that limited his ambulation at times. He was admitted last month for recurrent pancreatitis, alcohol induced. He decided to stop alcohol consumption at this time. Review of Systems Constitutional: Negative. Respiratory: Negative. Cardiovascular: Negative. Gastrointestinal: Negative. Musculoskeletal: Positive for back pain and neck pain. Psychiatric/Behavioral: Negative. 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 Coronary Artery Disease Involving [place] Coronary Artery of [place] Heart Without Angina Pectoris Posttraumatic Stress Disorder Lower Urinary Tract Symptoms (Luts) Recurrent Pancreatitis Current Outpatient Medications Medication Sig gabapentin (NEURONTIN) 300 mg capsule Take 1 capsule by mouth twice daily for 90 days. levETIRAcetam (KEPPRA) 500 mg tablet Take 1 tablet by mouth twice daily. Per Dr. Burnett losartan (COZAAR) 25 mg tablet Take 1 tablet by mouth once daily. magnesium oxide (MAG-OX) 400 mg (241.3 mg magnesium) tablet Take 1 tablet by mouth twice daily. escitalopram oxalate (LEXAPRO) 10 mg tablet Take 1 tablet by mouth once daily. metFORMIN (GLUCOPHAGE) 500 mg tablet Take 1 tablet by mouth twice daily with meals. pravastatin (PRAVACHOL) 40 mg tablet Take 1 tablet by mouth once daily. pravastatin (PRAVACHOL) 20 mg tablet Take 1 tablet by mouth once daily. amitriptyline (ELAVIL) 25 mg tablet Take 1 tablet by mouth daily at bedtime. aspirin, enteric coated (ASPIRIN, ENTERIC COATED) 81 mg EC tablet Take 1 tablet by mouth once daily. pantoprazole DR (PROTONIX) 40 mg tablet Take 1 tablet by mouth once daily. Cholecalciferol, Vitamin D3, 125 mcg (5,000 unit) cap Take 1 capsule by mouth once daily. hydroCHLOROthiazide (HYDRODIURIL, ESIDRIX) 25 mg tablet Take 1 tablet by mouth once daily. tamsulosin (FLOMAX) 0.4 mg Take 1 capsule by mouth once daily. 30 minutes after the same meal each day. insulin glargine (LANTUS SOLOSTAR U-100 INSULIN) 100 unit/mL (3 mL) Inject 10 Units subcutaneously daily at bedtime. naproxen (NAPROSYN) 500 mg tablet Take 1 tablet by mouth twice daily as needed for pain. As needed for pain amLODIPine (NORVASC) 10 mg tablet Take 1 tablet by mouth once daily. PER HEART GROUP. GAS RELIEF 80, SIMETHICONE, ORAL Take 1 tablet by mouth three times daily. latanoprost (XALATAN) 0.005 % ophthalmic solution Use 1 Drop in both eyes daily at bedtime. lactulose (DUPHALAC, CONSTULOSE) 10 gram/15 mL solution docosahexaenoic acid/epa (FISH OIL ORAL) Take by mouth once daily. fluticasone propionate (FLONASE NASAL) Use in the nose once daily. Multivitamin capsule Take 1 capsule by mouth once daily. SOFT LENS RINSE-STORE SOLUTION (SALINE MISC) nitroglycerin sublingual (NITROQUICK) 0.4 mg SL tablet Dissolve 0.4 mg under the tongue every 5 minutes as needed. No current facility-administered medications for this visit. Objective BP 129/87 Pulse 106 Resp 18 Wt 86.6 kg (191 lb) BMI 27.41 kg/m? Physical Exam Constitutional: Appearance: He is not ill-appearing. HENT: Head: Normocephalic. Eyes: General: No scleral icterus. Cardiovascular: Rate and Rhythm: Regular rhythm. Tachycardia present. Heart sounds: No murmur heard. No gallop. Pulmonary: Breath sounds: Normal breath sounds. Abdominal: General: There is no distension. Palpations: Abdomen is soft. Tenderness: There is no abdominal tenderness. Musculoskeletal: Right hip: Normal. Left hip: No deformity, tenderness, bony tenderness or crepitus. Decreased range of motion. Normal strength. Right lower leg: No edema. Left lower leg: No edema. Neurological: Mental Status: He is alert. Assessment and Plan 1. Low back pain, unspecified back pain laterality, unspecified chronicity, unspecified whether sciatica present - ICD9: 724.2, ICD10: M54.50 (primary diagnosis) Stable. Refilled. - NAPROXEN 500 MG TABLET 2. Cervical spondylosis - ICD9: 721.0, ICD10: M47.812 Stable. Refilled. - NAPROXEN 500 MG TABLET 3. Left hip pain - ICD9: 719.45, ICD10: M25.552 DJD? - NAPROXEN 500 MG TABLET - XR HIP GENERAL 3V PELV (more content not included)... [facility] 08-19-2022 History of Present illness Narrative This note was created using NoteWriter. Subjective Bronson Ochoa is a 57 year old male here for follow up. His diabetes mellitus, hypertension, and lipids were controlled. Chronic back pain was stable. Mood was stable. Aside from chronic low back pain, he had chronic left hip pain that limited his ambulation at times. He was admitted last month for recurrent pancreatitis, alcohol induced. He decided to stop alcohol consumption at this time. Review of Systems Constitutional: Negative. Respiratory: Negative. Cardiovascular: Negative. Gastrointestinal: Negative. Musculoskeletal: Positive for back pain and neck pain. Psychiatric/Behavioral: Negative. ACTIVE PROBLEM LIST Cervical Radiculopathy Cervical Spondylosis Lumbago Type 2 Diabetes Mellitus Without Complication, With Long-Term Current Use of Insulin ([facility]) Hypertension, Essential Mixed Hyperlipidemia Gerd Without Esophagitis Vitamin D Deficiency Seasonal Allergic Rhinitis Due to Poll[place] Nonintractable Epilepsy Without Status Epilepticus ([facility]) Prostate Cancer ([facility]) Preglaucoma Ocular Hypertension Optic Cupping of Both Eyes Coronary Artery Disease Involving [place] Coronary Artery of [place] Heart Without Angina Pectoris Posttraumatic Stress Disorder Lower Urinary Tract Symptoms (Luts) Recurrent Pancreatitis Current Outpatient Medications Medication Sig gabapentin (NEURONTIN) 300 mg capsule Take 1 capsule by mouth twice daily for 90 days. levETIRAcetam (KEPPRA) 500 mg tablet Take 1 tablet by mouth twice daily. Per Dr. Burnett losartan (COZAAR) 25 mg tablet Take 1 tablet by mouth once daily. magnesium oxide (MAG-OX) 400 mg (241.3 mg magnesium) tablet Take 1 tablet by mouth twice daily. escitalopram oxalate (LEXAPRO) 10 mg tablet Take 1 tablet by mouth once daily. metFORMIN (GLUCOPHAGE) 500 mg tablet Take 1 tablet by mouth twice daily with meals. pravastatin (PRAVACHOL) 40 mg tablet Take 1 tablet by mouth once daily. pravastatin (PRAVACHOL) 20 mg tablet Take 1 tablet by mouth once daily. amitriptyline (ELAVIL) 25 mg tablet Take 1 tablet by mouth daily at bedtime. aspirin, enteric coated (ASPIRIN, ENTERIC COATED) 81 mg EC tablet Take 1 tablet by mouth once daily. pantoprazole DR (PROTONIX) 40 mg tablet Take 1 tablet by mouth once daily. Cholecalciferol, Vitamin D3, 125 mcg (5,000 unit) cap Take 1 capsule by mouth once daily. hydroCHLOROthiazide (HYDRODIURIL, ESIDRIX) 25 mg tablet Take 1 tablet by mouth once daily. tamsulosin (FLOMAX) 0.4 mg Take 1 capsule by mouth once daily. 30 minutes after the same meal each day. insulin glargine (LANTUS SOLOSTAR U-100 INSULIN) 100 unit/mL (3 mL) Inject 10 Units subcutaneously daily at bedtime. naproxen (NAPROSYN) 500 mg tablet Take 1 tablet by mouth twice daily as needed for pain. As needed for pain amLODIPine (NORVASC) 10 mg tablet Take 1 tablet by mouth once daily. PER HEART GROUP. GAS RELIEF 80, SIMETHICONE, ORAL Take 1 tablet by mouth three times daily. latanoprost (XALATAN) 0.005 % ophthalmic solution Use 1 Drop in both eyes daily at bedtime. lactulose (DUPHALAC, CONSTULOSE) 10 gram/15 mL solution docosahexaenoic acid/epa (FISH OIL ORAL) Take by mouth once daily. fluticasone propionate (FLONASE NASAL) Use in the nose once daily. Multivitamin capsule Take 1 capsule by mouth once daily. SOFT LENS RINSE-STORE SOLUTION (SALINE MISC) nitroglycerin sublingual (NITROQUICK) 0.4 mg SL tablet Dissolve 0.4 mg under the tongue every 5 minutes as needed. No current facility-administered medications for this visit. Objective BP 129/87 Pulse 106 Resp 18 Wt 86.6 kg (191 lb) BMI 27.41 kg/m Physical Exam Constitutional: Appearance: He is not ill-appearing. HENT: Head: Normocephalic. Eyes: General: No scleral icterus. Cardiovascular: Rate and Rhythm: Regular rhythm. Tachycardia present. Heart sounds: No murmur heard. No gallop. Pulmonary: Breath sounds: Normal breath sounds. Abdominal: General: There is no distension. Palpations: Abdomen is soft. Tenderness: There is no abdominal tenderness. Musculoskeletal: Right hip: Normal. Left hip: No deformity, tenderness, bony tenderness or crepitus. Decreased range of motion. Normal strength. Right lower leg: No edema. Left lower leg: No edema. Neurological: Mental Status: He is alert. Assessment and Plan 1. Low back pain, unspecified back pain laterality, unspecified chronicity, unspecified whether sciatica present - ICD9: 724.2, ICD10: M54.50 (primary diagnosis) Stable. Refilled. - NAPROXEN 500 MG TABLET 2. Cervical spondylosis - ICD9: 721.0, ICD10: M47.812 Stable. Refilled. - NAPROXEN 500 MG TABLET 3. Left hip pain - ICD9: 719.45, ICD10: M25.552 DJD? - NAPROXEN 500 MG TABLET - XR HIP GENERAL 3V PELV/AP/LAT LEFT 4. Need for vaccination - ICD9: V05.9, ICD10: Z23 - PNEUMOCOCCAL VACCINE (PREVNAR 20) 5. Mixed hyperlipidemia - ICD9: 272.2, ICD10: E78.2 - good control - Continue current medication. 6. Type 2 diabetes mellitus without complication, with long-term current use of insulin (HCC) - ICD9: 250.00, V58.67, ICD10: E11.9, Z79.4 Controlled. - Continue current medications - COMP METABOLIC PANEL - HGB A1C - LIPID PANEL BASIC - CBC 7. Prostate cancer (HCC) - ICD9: 185, ICD10: C61 To see urology. Lobito Mcmanus MD documented in this encounter [facility] 06-29-2022 Miscellaneous Notes Patient has been identified by name and date of : Yes Requested Prescriptions Pending Prescriptions Disp Refills levETIRAcetam (KEPPRA) 500 mg tablet 180 tablet 0 Sig: Take 1 tablet by mouth twice daily. Per Dr. Burnett losartan (COZAAR) 25 mg tablet 90 tablet 0 Sig: Take 1 tablet by mouth once daily. magnesium oxide (MAG-OX) 400 mg (241.3 mg magnesium) tablet 180 tablet 0 Sig: Take 1 tablet by mouth twice daily. RX INSTRUCTIONS: Pharmacy initiated this request. No need to notify patient. Caroline Macias Pss documented in this encounter [facility] 06-02-2022 Miscellaneous Notes Patient has been identified by name and date of : Yes Patient phones for refill(s): Requested Prescriptions Pending Prescriptions Disp Refills escitalopram oxalate (LEXAPRO) 10 mg tablet 30 tablet Sig: Take 1 tablet by mouth once daily. Date of last office visit with pcp: 05/16/22 Date of last office visit in primary care: Last 2 Encounter Wt Readings: Date: Wt: 05/16/2022 85.6 kg (188 lb 12.8 oz) 03/10/2022 87.7 kg (193 lb 6.4 oz) Previous labs/tests for medication: Not applicable Please advise. Thank you. Cari Moss RN documented in this encounter [facility] 05-31-2022 Miscellaneous Notes Patient notified, verbalized understanding. ----- Message from Lobito Mcmanus MD sent at 05/28/2022 2:31 PM EDT ----- Diabetes needs improvement. Fasting glucose elevated. Recommend increasing Lantus to 14 units at bedtime. Rest of labs okay. documented in this encounter [facility] 05-23-2022 Miscellaneous Notes Patient advised PSA is down. Patient agreed. Lauren Duncan Cma ----- Message from Trini Williamson DO sent at 05/22/2022 5:39 PM EDT ----- PSA is down documented in this encounter [facility] 05-16-2022 Instructions Lobito Mcmanus MD - 05/16/2022 4:29 PM EDT FASTING BLOOD WORK. documented in this encounter [facility] 05-16-2022 History of Present illness Narrative This note was created using eCertriter. Subjective Bronson Ochoa is a 57 year old male. He had no new concerns. He needed refills. He had not done his fasting labs here. [facility] He sees Dr. Williamson for urology, Dr. Burnett, [place] [facility]; Abimael Sanchez CNP for cardiology, [facility]; Dr. Leroy Santamaria for [place] [facility]; Dr. Bojorquez for ophthalmology. Review of Systems Constitutional: Negative. Respiratory: Negative. Cardiovascular: Negative. Gastrointestinal: Negative. Genitourinary: Negative. Musculoskeletal: Positive for neck pain. Psychiatric/Behavioral: Negative. ACTIVE PROBLEM LIST Cervical Radiculopathy Cervical Spondylosis Lumbago Type 2 Diabetes Mellitus Without Complication, With Long-Term Current Use of Insulin (Hcc) Hypertension, Essential Mixed Hyperlipidemia Gerd Without Esophagitis Vitamin D Deficiency Seasonal Allergic Rhinitis Due to Pollen Nonintractable Epilepsy Without Status Epilepticus (Hcc) Prostate Cancer (Hcc) Preglaucoma Ocular Hypertension Type 2 Diabetes Mellitus Without Retinopathy (Hcc) Optic Cupping of Both Eyes Coronary Artery Disease Involving [place] Coronary Artery of [place] Heart Without Angina Pectoris Posttraumatic Stress Disorder Current Outpatient Medications Medication Sig gabapentin (NEURONTIN) 300 mg capsule Take 1 capsule by mouth twice daily for 90 days. levETIRAcetam (KEPPRA) 500 mg tablet Take 1 tablet by mouth twice daily. Per Dr. Burnett losartan (COZAAR) 25 mg tablet Take 1 tablet by mouth once daily. magnesium oxide (MAG-OX) 400 mg (241.3 mg magnesium) tablet Take 1 tablet by mouth twice daily. GAS RELIEF 80, SIMETHICONE, ORAL Take 1 tablet by mouth three times daily. escitalopram oxalate (LEXAPRO) 10 mg tablet Take 1 tablet by mouth once daily. metFORMIN (GLUCOPHAGE) 500 mg tablet Take 1 tablet by mouth twice daily with meals. loratadine (CLARITIN) 10 mg tablet Take 1 tablet by mouth once daily. pravastatin (PRAVACHOL) 40 mg tablet Take 1 tablet by mouth once daily. pravastatin (PRAVACHOL) 20 mg tablet Take 1 tablet by mouth once daily. amitriptyline (ELAVIL) 25 mg tablet Take 1 tablet by mouth daily at bedtime. aspirin, enteric coated (ASPIRIN, ENTERIC COATED) 81 mg EC tablet Take 1 tablet by mouth once daily. pantoprazole DR (PROTONIX) 40 mg tablet Take 1 tablet by mouth once daily. Cholecalciferol, Vitamin D3, 125 mcg (5,000 unit) cap Take 1 capsule by mouth once daily. hydroCHLOROthiazide (HYDRODIURIL, ESIDRIX) 25 mg tablet Take 1 tablet by mouth once daily. tamsulosin (FLOMAX) 0.4 mg Take 1 capsule by mouth once daily. 30 minutes after the same meal each day. latanoprost (XALATAN) 0.005 % ophthalmic solution Use 1 Drop in both eyes daily at bedtime. lactulose (DUPHALAC, CONSTULOSE) 10 gram/15 mL solution insulin glargine (LANTUS SOLOSTAR U-100 INSULIN) 100 unit/mL (3 mL) Inject 10 Units subcutaneously daily at bedtime. naproxen (NAPROSYN) 500 mg tablet Take 1 tablet by mouth twice daily with meals. As needed for pain amLODIPine (NORVASC) 5 mg tablet Take 1 tablet by mouth once daily. docosahexaenoic acid/epa (FISH OIL ORAL) Take by mouth once daily. fluticasone propionate (FLONASE NASAL) Use in the nose once daily. Multivitamin capsule Take 1 capsule by mouth once daily. SOFT LENS RINSE-STORE SOLUTION (SALINE MISC) nitroglycerin sublingual (NITROQUICK) 0.4 mg SL tablet Dissolve 0.4 mg under the tongue every 5 minutes as needed. lidocaine (LIDODERM) 5 % Apply 1 Patch as directed every 24 hours. (Patient not taking: Reported on 05/16/2022) No current facility-administered medications for this visit. Objective BP 124/78 (BP Site: Right Arm, BP Position: Sitting, BP Cuff Size: Large Adult) Pulse 104 Temp 36.3 C (97.3 F) (Temporal) Resp 18 Wt 85.6 kg (188 lb 12.8 oz) BMI 27.09 kg/m Physical Exam Constitutional: General: He is not in acute distress. Appearance: He is not ill-appearing. Cardiovascular: Rate and Rhythm: Regular rhythm. Tachycardia present. Heart sounds: No murmur heard. No gallop. Pulmonary: Effort: Pulmonary effort is normal. Breath sounds: Normal breath sounds. Musculoskeletal: Right lower leg: No edema. Left lower leg: No edema. Neurological: General: No focal deficit present. Mental Status: He is alert. Gait: Gait normal. Psychiatric: Mood and Affect: Mood normal. Behavior: Behavior normal. Assessment and Plan 1. Type 2 diabetes mellitus without complication, with long-term current use of insulin ([facility]) - ICD9: 250.00, V58.67, ICD10: E11.9, Z79.4 (primary diagnosis) The patient is new to id. - Continue current medications - METFORMIN 500 MG TABLET - INSULIN GLARGINE (U-100) 100 UNIT/ML (3 ML) SUBCUTANEOUS PEN 2. Seasonal allergic rhinitis due to pollen - ICD9: 477.0, ICD10: J30.1 Refilled. - LORATADINE 10 MG TABLET 3. Mixed hyperlipidemia - ICD9: 272.2, ICD10: E78.2 - to be determined upon return of lab results - Continue current medication. - PRAVASTATIN 40 MG TABLET - PRAVASTATIN 20 MG TABLET 4. 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 epilepticus, unspecified epilepsy type ([facility]) - ICD9: 345.90, ICD10: G40.909 Per [place] [facility]. 5. Hypertension, essential - ICD9: 401.9, ICD10: I10 - good control - HYDROCHLOROTHIAZIDE 25 MG TABLET - AMLODIPINE 10 MG TABLET 6. GERD without esophagitis - ICD9: 530.81, ICD10: K21.9 Controlled. - PANTOPRAZOLE 40 MG TABLET,DELAYED RELEASE 7. Vitamin D deficiency - ICD9: 268.9, ICD10: E55.9 Supplemented. - CHOLECALCIFEROL (VITAMIN D3) 125 MCG (5,000 UNIT) CAPSULE 8. Cervical spondylosis - ICD9: 721.0, ICD10: M47.812 Refilled. - NAPROXEN 500 MG TABLET 9. Lower urinary tract symptoms (LUTS) - ICD9: 788.99, ICD10: R39.9 Refilled. - TAMSULOSIN 0.4 MG CAPSULE 10. Coronary artery disease involving kl[place] coronary artery of [place] heart without angina pectoris - ICD9: 414.01, ICD10: I25.10 Stable. - ASPIRIN 81 MG TABLET,DELAYED RELEASE 11. Posttraumatic stress disorder - ICD9: 309.81, ICD10: F43.10 Refilled. - AMITRIPTYLINE 25 MG TABLET Lobito Mcmanus MD documented in this encounter [facility] 05-05-2022 Miscellaneous Notes Patient has been identified by name and date of : Yes Patient phones for refill(s): Requested Prescriptions Pending Prescriptions Disp Refills gabapentin (NEURONTIN) 300 mg capsule 180 capsule 0 Sig: Take 1 capsule by mouth twice daily for 90 days. Date of last office visit in primary care: 03/10/2022 2 month follow-up: 05/09/2022 Last 2 Encounter Wt Readings: Date: Wt: 03/10/2022 87.7 kg (193 lb 6.4 oz) 07/06/2021 92.5 kg (204 lb) Previous labs/tests for medication: Not applicable Please advise. Thank you. Rhona Samayoa LPN Pharmacy verified in [facility] Patient has been identified by name and date of : Yes Patient aware RX will be sent to pharmacy. No need to notify patient. Pharmacy phones for refill(s): Requested Prescriptions Pending Prescriptions Disp Refills gabapentin (NEURONTIN) 300 mg capsule 180 capsule 0 Sig: Take 1 capsule by mouth twice daily for 90 days. Date of last office visit : 03/10/2022 Date of next office visit : 05/09/2022 Last 2 Encounter Wt Readings: Date: Wt: 03/10/2022 87.7 kg (193 lb 6.4 oz) 07/06/2021 92.5 kg (204 lb) Please advise. Toya Dickerson Pss documented in this encounter [facility] 04-08-2022 Miscellaneous Notes Patient has been identified by name and date of : Yes Pending Prescriptions Disp Refills LEVETIRACETAM 500 MG TABLET 180 tablet 3 Sig: Take 1 tablet by mouth twice daily. Per Dr. Burnett DANIELLE: No LOSARTAN 25 MG TABLET 90 tablet 3 Sig: Take 1 tablet by mouth once daily. DANIELLE: No MAGNESIUM OXIDE 400 MG (241.3 MG MAGNESIUM) TABLET 180 tablet 3 Sig: Take 1 tablet by mouth twice daily. DANIELLE: No RX INSTRUCTIONS: Pharmacy initiated this request. No need to notify patient. Sveta Turcios Pss documented in this encounter [facility] 03-11-2022 Miscellaneous Notes BEHAVIORAL HEALTH SOCIAL WORK CONSULT NOTE Service Date: March 11, 2022 Patient was identified by name and Patient: Bronson Rothman [place] [facility] [place] [address] (home) [phone] (cell) PCP: Lobito Mcmanus MD [address] [facility] [address] [address] [facility] from: PCP (Dr Mcmanus) Reason for referral: [facility] Assessment (not sure of diag,Posttraumatic stress disorder) [facility] encounter type: Telephone Encounter Assessment: [facility] received a consult from Dr Mcmanus, for assessment not sure of diag PTSD [facility] reviewed Pt's chart/insurance [facility] contacted Pt -stated he is ok -denies current SI/HI -reported he was drinking, had a gun and called the police -was transferred to [place] and admitted to [facility] -not sure where he was referred to for outpt tx -stated he received a ltr from them stating they were full SW [facility] [place] -Pt stated he is ok - I will contact you if I need anything -the police took my gun so it is not in the house -inquired if Pt was still drinking -it is unclear -talked of staff at [facility] [place] wanting to kick him out however does not know the reason why -they stated he does not qualify -states he would ok if others ([facility] [place]) would leave him alone -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 [facility] offered to send ltr with contact info in case Pt reconsiders -Pt agreed -[facility] - sent the following resources in a ltr: [facility] [address] [place] [address] *counseling, psychiatry and case management [facility] [address] [place] [address] Crisis line [phone] Pt stated he will call if he needs services Medications: Current Outpatient Medications on File Prior to Visit Medication Sig GAS RELIEF 80, SIMETHICONE, ORAL Take 1 tablet by mouth three times daily. escitalopram oxalate (LEXAPRO) 10 mg tablet Take 1 tablet by mouth once daily. metFORMIN (GLUCOPHAGE) 500 mg tablet Take 1 tablet by mouth twice daily with meals. loratadine (CLARITIN) 10 mg tablet Take 1 tablet by mouth once daily. pravastatin (PRAVACHOL) 40 mg tablet Take 1 tablet by mouth once daily. pravastatin (PRAVACHOL) 20 mg tablet Take 1 tablet by mouth once daily. amitriptyline (ELAVIL) 25 mg tablet Take 1 tablet by mouth daily at bedtime. aspirin, enteric coated (ASPIRIN, ENTERIC COATED) 81 mg EC tablet Take 1 tablet by mouth once daily. pantoprazole DR (PROTONIX) 40 mg tablet Take 1 tablet by mouth once daily. Cholecalciferol, Vitamin D3, 125 mcg (5,000 unit) cap Take 1 capsule by mouth once daily. hydroCHLOROthiazide (HYDRODIURIL, ESIDRIX) 25 mg tablet Take 1 tablet by mouth once daily. magnesium oxide (MAG-OX) 400 mg (241.3 mg magnesium) tablet Take 1 tablet by mouth twice daily. tamsulosin (FLOMAX) 0.4 mg Take 1 capsule by mouth once daily. 30 minutes after the same meal each day. gabapentin (NEURONTIN) 300 mg capsule Take 1 capsule by mouth twice daily for 90 days. latanoprost (XALATAN) 0.005 % ophthalmic solution Use 1 Drop in both eyes daily at bedtime. losartan (COZAAR) 25 mg tablet Take 1 tablet by mouth once daily. lactulose (DUPHALAC, CONSTULOSE) 10 gram/15 mL solution insulin glargine (LANTUS SOLOSTAR U-100 INSULIN) 100 unit/mL (3 mL) Inject 10 Units subcutaneously daily at bedtime. naproxen (NAPROSYN) 500 mg tablet Take 1 tablet by mouth twice daily with meals. As needed for pain amLODIPine (NORVASC) 5 mg tablet Take 1 tablet by mouth once daily. levETIRAcetam (KEPPRA) 500 mg tablet Take 1 tablet by mouth twice daily. Per Dr. Burnett docosahexaenoic acid/epa (FISH OIL ORAL) Take by mouth once daily. fluticasone propionate (FLONASE NASAL) Use in the nose once daily. Multivitamin capsule Take 1 capsule by mouth once daily. SOFT LENS RINSE-STORE SOLUTION (SALINE MISC) nitroglycerin sublingual (NITROSTAT) 0.4 mg SL tablet Dissolve 0.4 mg under the tongue every 5 minutes as needed. lidocaine (LIDODERM) 5 %(700 mg/patch) Apply 1 Patch as directed every 24 hours. No current facility-administered medications on file prior to visit. Curbside: No Screening Tools: No Substance Use / Abuse: Yes - ETOH Outcome / Plan / Referrals: Attempts to Outreach: 1 attempt Final Disposition: Patient declined (03-11-22 Pt states he is ok and will seek tx when he needs it) Patient Discharged?: Yes Patient reported that caregiver was able to meet their needs today?: N/A Internal Referrals : No Reason for External Referrals : Other : Pt is declining services at this time Intervention: Supportive Listening Provided referral information Resources Provided: Patient declined option for recommendations Time Spent: 15 minutes DINESH Jamil documented in this encounter [facility] 03-10-2022 History of Present illness Narrative This note was created using eCertriter. Subjective Patient presents with: Hospital F/U: pancreatitis Establish Care: from Family Practice Bronson Ochoa is a 56 year old male. He was admitted for acute pancreatitis 02/27-03/04. He had to go back to the ER for pain medication 03/06. His abdominal pain was much better, and things were getting back to normal. He stopped alcohol consumption. He was admitted for suicidal ideation in [place] in November, and diagnosed with PTSD. He was having flashbacks of seeing a lot of from when he worked for the [employer]. He was started on amitriptyline and escitalopram. He was supposed to go for mental health care, but was told practices were full. He sees Dr. Williamson for urology, Dr. Burnett for neurology, Abimael Sanchez CNP for cardiology, Dr. Leroy Santamaria for gastroenterology, Dr. Bojorquez for ophthalmology. Review of Systems Constitutional: Negative. HENT: Negative. Eyes: Negative. Respiratory: Negative. Cardiovascular: Negative. Gastrointestinal: Negative. Genitourinary: Negative. Musculoskeletal: Positive for back pain and neck pain. Neurological: Negative. Psychiatric/Behavioral: Negative. PAST MEDICAL HISTORY Diagnosis Date Abnormal pathology report from prostate needle biopsy 03/15/2021 Acute myocardial infarction of other specified sites, episode of care unspecified 09/2011 Myocardial Infarction Cervical radiculopathy 10/21/2014 Cervical spondylosis 10/21/2014 Coronary artery disease Coronary artery disease involving [place] coronary artery of [place] heart without angina pectoris 09/25/2011 DDD (degenerative disc disease), cervical 10/21/2014 DDD (degenerative disc disease), thoracic 10/21/2014 Diabetes (HCC) Elevated PSA 12/01/2020 Esophageal reflux Gastroesophageal reflux GERD without esophagitis 12/01/2020 Glaucoma History of acute pancreatitis Hypertension, essential 11/17/2020 Hypertriglyceridemia 12/01/2020 Idiopathic acute pancreatitis without infection or necrosis 02/27/2022 Mental disorder Mixed hyperlipidemia Hyperlipidemia 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 epilepticus (HCC) 12/01/2020 Posttraumatic stress disorder 03/10/2022 Preglaucoma ocular hypertension 10/05/2021 Type 2 diabetes mellitus without complication, with long-term current use of insulin (HCC) 11/17/2020 Vitamin D deficiency 12/01/2020 PAST SURGICAL HISTORY Procedure Laterality Date COLONOSCOPY FLX DX W/COLLJ SPEC WHEN PFRMD 06/08/2019 repeat in 5 years due to family history of colon cancer ESOPHAGOGASTRODUODENOSCOPY TRANSORAL DIAGNOSTIC EGD ESOPHAGOGASTRODUODENOSCOPY TRANSORAL DIAGNOSTIC 08/31/2019 EGD LAPS SURG CHOLECYSTECTOMY W/CHOLANGIOGRAPHY 01/07/2019 LEFT HEART CATH,PERCUTANEOUS 10/31/2011 FAMILY HISTORY Problem Relation Age of Onset Diabetes Father Kidney Disease Father other (DDD lumbar) Father Diabetes Mother Ischemic Heart Disease Mother COPD Mother Stroke Mother Depression Mother Breast Cancer Sister Diabetes Brother Schizophrenia Brother Hypertension Half-brother Colon Cancer Half-brother Diabetes Half-brother other (Gout) Half-brother Sarcoidosis Half-brother Hypertension Half-brother No Known Problems Half-sister Hypertension Half-sister Aneurysm Half-sister Anxiety disorder Half-sister Depression Half-sister No Known Problems Half-sister Social History Tobacco Use Smoking status: Former Smoker Packs/day: 0.50 Years: 20.00 Pack years: 10.00 Quit date: 09/25/2011 Years since quittin.4 Smokeless tobacco: Never Used Tobacco comment: Quit age 33 Vaping Use Vaping Use: Never used Substance Use Topics Alcohol use: Not Currently Alcohol/week: 3.0 standard drinks Types: 3 Cans of Beer (12oz) per week Comment: quit 03/04/2022 Drug use: Never ALLERGIES Allergen Reactions Cyclobenzaprine Itching Lisinopril Swelling mouth and throat Narcotics [Opioids * Itching Tramadol Itching Vicodin [Hydrocodon* Swelling mouth and throat Current Outpatient Medications Medication Sig GAS RELIEF 80, SIMETHICONE, ORAL Take 1 tablet by mouth three times daily. metFORMIN (GLUCOPHAGE) 500 mg tablet Take 1 tablet by mouth twice daily with meals. loratadine (CLARITIN) 10 mg tablet Take 1 tablet by mouth once daily. pravastatin (PRAVACHOL) 40 mg tablet Take 1 tablet by mouth once daily. pravastatin (PRAVACHOL) 20 mg tablet Take 1 tablet by mouth once daily. amitriptyline (ELAVIL) 25 mg tablet Take 1 tablet by mouth daily at bedtime. aspirin, enteric coated (ASPIRIN, ENTERIC COATED) 81 mg EC tablet Take 1 tablet by mouth once daily. pantoprazole DR (PROTONIX) 40 mg tablet Take 1 tablet by mouth once daily. Cholecalciferol, Vitamin D3, 125 mcg (5,000 unit) cap Take 1 capsule by mouth once daily. hydroCHLOROthiazide (HYDRODIURIL, ESIDRIX) 25 mg tablet Take 1 tablet by mouth once daily. magnesium oxide (MAG-OX) 400 mg (241.3 mg magnesium) tablet Take 1 tablet by mouth twice daily. tamsulosin (FLOMAX) 0.4 mg Take 1 capsule by mouth once daily. 30 minutes after the same meal each day. gabapentin (NEURONTIN) 300 mg capsule Take 1 capsule by mouth twice daily for 90 days. latanoprost (XALATAN) 0.005 % ophthalmic solution Use 1 Drop in both eyes daily at bedtime. losartan (COZAAR) 25 mg tablet Take 1 tablet by mouth once daily. lactulose (DUPHALAC, CONSTULOSE) 10 gram/15 mL solution insulin glargine (LANTUS SOLOSTAR U-100 INSULIN) 100 unit/mL (3 mL) Inject 10 Units subcutaneously daily at bedtime. naproxen (NAPROSYN) 500 mg tablet Take 1 tablet by mouth twice daily with meals. As needed for pain amLODIPine (NORVASC) 5 mg tablet Take 1 tablet by mouth once daily. levETIRAcetam (KEPPRA) 500 mg tablet Take 1 tablet by mouth twice daily. Per Dr. Burnett docosahexaenoic acid/epa (FISH OIL ORAL) Take by mouth once daily. fluticasone propionate (FLONASE NASAL) Use in the nose once daily. Multivitamin capsule Take 1 capsule by mouth once daily. SOFT LENS RINSE-STORE SOLUTION (SALINE MISC) nitroglycerin sublingual (NITROSTAT) 0.4 mg SL tablet Dissolve 0.4 mg under the tongue every 5 minutes as needed. lidocaine (LIDODERM) 5 %(700 mg/patch) Apply 1 Patch as directed every 24 hours. escitalopram oxalate (LEXAPRO) 10 mg tablet Take 1 tablet by mouth once daily. No current facility-administered medications for this visit. Objective BP 130/82 (BP Site: Right Arm, BP Position: Sitting, BP Cuff Size: Large Adult) Pulse 84 Temp 36.6 C (97.8 F) (Temporal Artery) Resp 18 Wt 87.7 kg (193 lb 6.4 oz) BMI 27.75 kg/m Physical Exam Constitutional: General: He is not in acute distress. Appearance: He is not ill-appearing. HENT: Head: Normocephalic. Eyes: General: No scleral icterus. Conjunctiva/sclera: Conjunctivae normal. Cardiovascular: Rate and Rhythm: Normal rate and regular rhythm. Heart sounds: No murmur heard. No gallop. Pulmonary: Effort: Pulmonary effort is normal. Breath sounds: Normal breath sounds. Abdominal: General: Bowel sounds are normal. Palpations: Abdomen is soft. There is no mass. Tenderness: There is no abdominal tenderness. Musculoskeletal: General: No tenderness. Normal range of motion. Cervical back: No tenderness. Right lower leg: No edema. Left lower leg: No edema. Lymphadenopathy: Cervical: No cervical adenopathy. Neurological: General: No focal deficit present. Mental Status: He is alert. Gait: Gait normal. Psychiatric: Mood and Affect: Mood normal. Behavior: Behavior normal. Feet:Shoes and socks removed, No deformities, ulcers, calluses, normal distal pulses and sensitive to 10 gm monofilament Assessment and Plan 1. Posttraumatic stress disorder - ICD9: 309.81, ICD10: F43.10 (primary diagnosis) Refill Lexapro. - ESCITALOPRAM 10 MG TABLET - CONSULT TO PRIMARY CARE BEHAVIORAL HEALTH ADULT 2. Coronary artery disease involving [place] coronary artery of [place] heart without angina pectoris - ICD9: 414.01, ICD10: I25.10 Stable per [facility]. - CBC 3. Mixed hyperlipidemia - ICD9: 272.2, ICD10: E78.2 - to be determined upon return of lab results - Continue current medication. 4. Type 2 diabetes mellitus without complication, with long-term current use of insulin (HCC) - ICD9: 250.00, V58.67, ICD10: E11.9, Z79.4 The patient is new to me. - Continue current medications - COMP METABOLIC PANEL - LIPID PANEL BASIC - HGB A1C - ALBUMIN/CREAT RATIO RND UR Lobito Mcmanus MD documented in this encounter [facility] 03-09-2022 Miscellaneous Notes Pharmacy called requesting the following refill. Pending Prescriptions Disp Refills TAMSULOSIN 0.4 MG CAPSULE 30 capsule 3 Sig: Take 1 capsule by mouth once daily. 30 minutes after the same meal each day. DANIELLE: No Patient last appointment: Visit date not found Patient Phone numbers: [phone] (home) Request is for script(s) to be escript to pharmacy. Lauren Duncan Cma documented in this encounter [facility] 03-09-2022 Miscellaneous Notes Patient has been identified by name and date of : Yes Pharmacy phones for refill(s): Pending Prescriptions Disp Refills METFORMIN 500 MG TABLET 180 tablet 0 Sig: Take 1 tablet by mouth twice daily with meals. DANIELLE: No LORATADINE 10 MG TABLET 90 tablet 0 Sig: Take 1 tablet by mouth once daily. DANIELLE: No PRAVASTATIN 40 MG TABLET 90 tablet 0 Sig: Take 1 tablet by mouth once daily. DANIELLE: No PRAVASTATIN 20 MG TABLET 90 tablet 0 Sig: Take 1 tablet by mouth once daily. DANIELLE: No AMITRIPTYLINE 25 MG TABLET 90 tablet 0 Sig: Take 1 tablet by mouth daily at bedtime. DANIELLE: No ASPIRIN 81 MG TABLET,DELAYED RELEASE 90 tablet 0 Sig: Take 1 tablet by mouth once daily. DANIELLE: No PANTOPRAZOLE 40 MG TABLET,DELAYED RELEASE 90 tablet 0 Sig: Take 1 tablet by mouth once daily. DANIELLE: No CHOLECALCIFEROL (VITAMIN D3) 125 MCG (5,000 UNIT) CAPSULE 90 capsule 0 Sig: Take 1 capsule by mouth once daily. DANIELLE: No HYDROCHLOROTHIAZIDE 25 MG TABLET 90 tablet 0 Sig: Take 1 tablet by mouth once daily. DANIELLE: No MAGNESIUM OXIDE 400 MG (241.3 MG MAGNESIUM) TABLET 56 tablet 0 Sig: Take 1 tablet by mouth twice daily. DANIELLE: No Date of last office visit in primary care: 05/21/21 next a[t 03/10/22 Last 2 Encounter Wt Readings: Date: Wt: 07/06/2021 92.5 kg (204 lb) 05/21/2021 90.7 kg (200 lb) Previous labs/tests for medication: Cholesterol: HDL Cholesterol (mg/dL) Date Value 11/17/2020 49 LDL Cholesterol (mg/dL) Date Value 11/17/2020 75 ALT (U/L) Date Value 05/21/2021 63 Non HDL Cholesterol (mg/dL) Date Value 11/17/2020 110 Blood Pressure: BUN (mg/dL) Date Value 05/21/2021 14 Sodium (mmol/L) Date Value 05/21/2021 137 Last 1 Encounter BP Readings: Date: BP: 05/21/2021 128/80 Please advise. Thank you. Eden Macario LPN documented in this encounter [facility] 01-13-2022 Miscellaneous Notes The following approved medication requests have been transmitted electronically. Pending Prescriptions Disp Refills MAGNESIUM OXIDE 400 MG (241.3 MG MAGNESIUM) TABLET 56 tablet 0 Sig: TAKE 1 TABLET BY MOUTH TWICE A DAY DANIELLE: Yes GABAPENTIN 300 MG CAPSULE 180 capsule 0 Sig: Take 1 capsule by mouth twice daily for 90 days. DNAIELLE: No Souleymane Kelly APRN.ANMOL VELASQUEZ Patient phones requesting refills as follows: Pending Prescriptions Disp Refills MAGNESIUM OXIDE 400 MG (241.3 MG MAGNESIUM) TABLET 56 tablet 0 Sig: TAKE 1 TABLET BY MOUTH TWICE A DAY DANIELLE: Yes GABAPENTIN 300 MG CAPSULE 56 capsule Sig: TAKE 1 CAPSULE BY MOUTH TWICE A DAY DANIELLE: Yes LEV-05/21/21 Labs-05/27/21 NOV-none Please review and advise. Kay Renae LPN documented in this encounter [facility] 12-17-2021 Miscellaneous Notes Addended by: SOULEYMANE KELLY on: 12/17/2021 09:10 AM Modules accepted: Orders Inform patient we will recheck his magnesium levels at his next lab draw. Orders signed Orders Placed This Encounter MAGNESIUM BLD Standing Status: Future Standing Expiration Date: 02/16/2022 magnesium oxide (MAG-OX) 400 mg (241.3 mg magnesium) tablet Sig: TAKE 1 TABLET BY MOUTH TWICE A DAY Dispense: 56 tablet Refill: 0 Order Comments: Maximum Refills Reached The following approved medication requests have been transmitted electronically. Pending Prescriptions Disp Refills MAGNESIUM OXIDE 400 MG (241.3 MG MAGNESIUM) TABLET 56 tablet 0 Sig: TAKE 1 TABLET BY MOUTH TWICE A DAY DANIELLE: Yes Souleymane Kelly APRN.ANMOL VELASQUEZ Patient phones requesting refills as follows: Pending Prescriptions Disp Refills MAGNESIUM OXIDE 400 MG (241.3 MG MAGNESIUM) TABLET 56 tablet 0 Sig: TAKE 1 TABLET BY MOUTH TWICE A DAY DANIELLE: Yes LEV-05/21/21 Labs-8/27/21 NOV-none Please review and advise. Kay Renae LPN documented in this encounter [facility] documented as of this encounter (statuses as of 08/21/2022) [facility] History of Past illness Narrative* Problem Noted Date Resolved Date Type 2 diabetes mellitus without retinopathy 07/202208/16/2022 Elevated PSA 12/01/2020 05/16/2022 NO SHOW 06/05/2015 03/10/2022 Right hip pain 01/19/2015 05/16/2022 DDD (degenerative disc disease), thoracic 201405/16/2022 Cervical strain 10/21/2014 03/10/2022 DDD (degenerative disc disease), cervical 201403/10/2022 documented as of this encounter (statuses as of 09/25/2022) [facility] History of Past illness Narrative* Problem Noted Date Resolved Date Type 2 diabetes mellitus without retinopathy 07/202208/16/2022 Elevated PSA 12/01/2020 05/16/2022 NO SHOW 06/05/2015 03/10/2022 Right hip pain 01/19/2015 05/16/2022 DDD (degenerative disc disease), thoracic 201405/16/2022 Cervical strain 10/21/2014 03/10/2022 DDD (degenerative disc disease), cervical 201403/10/2022 documented as of this encounter (statuses as of 10/19/2022) [facility] [facility] of Past illness Narrative* Problem Noted Date Resolved Date Type 2 diabetes mellitus without retinopathy 07/202208/16/2022 Elevated PSA 12/01/2020 05/16/2022 NO SHOW 06/05/2015 03/10/2022 Right hip pain 01/19/2015 05/16/2022 DDD (degenerative disc disease), thoracic 201405/16/2022 Cervical strain 10/21/2014 03/10/2022 DDD (degenerative disc disease), cervical 201403/10/2022 documented as of this encounter (statuses as of 10/25/2022) [facility] History of Past illness Narrative* Problem Noted Date Resolved Date Type 2 diabetes mellitus without retinopathy 07/202208/16/2022 Elevated PSA 12/01/2020 05/16/2022 NO SHOW 06/05/2015 03/10/2022 Right hip pain 01/19/2015 05/16/2022 DDD (degenerative disc disease), thoracic 201405/16/2022 Cervical strain 10/21/2014 03/10/2022 DDD (degenerative disc disease), cervical 201403/10/2022 documented as of this encounter (statuses as of 11/08/2022) [facility] History of Past illness Narrative* Problem Noted Date Resolved Date Type 2 diabetes mellitus without retinopathy 07/202208/16/2022 Elevated PSA 12/01/2020 05/16/2022 NO SHOW 06/05/2015 03/10/2022 Right hip pain 01/19/2015 05/16/2022 DDD (degenerative disc disease), thoracic 201405/16/2022 Cervical strain 10/21/2014 03/10/2022 DDD (degenerative disc disease), cervical 201403/10/2022 documented as of this encounter (statuses as of 11/14/2022) [facility]01-11[facility] History of Past illness Narrative* Problem Noted Date Resolved Date Type 2 diabetes mellitus without retinopathy 07/202208/16/2022 Elevated PSA 12/01/2020 05/16/2022 NO SHOW 06/05/2015 03/10/2022 Right hip pain 01/19/2015 05/16/2022 DDD (degenerative disc disease), thoracic 201405/16/2022 Cervical strain 10/21/2014 03/10/2022 DDD (degenerative disc disease), cervical 201403/10/2022 documented as of this encounter (statuses as of 12/01/2022) [facility] History of Past illness Narrative* Problem Noted Date Resolved Date Type 2 diabetes mellitus without retinopathy 07/202208/16/2022 Elevated PSA 12/01/2020 05/16/2022 NO SHOW 06/05/2015 03/10/2022 Right hip pain 01/19/2015 05/16/2022 DDD (degenerative disc disease), thoracic 201405/16/2022 Cervical strain 10/21/2014 03/10/2022 DDD (degenerative disc disease), cervical 201403/10/2022 documented as of this encounter (statuses as of 12/08/2022) [facility] History of Past illness Narrative* Problem Noted Date Resolved Date Type 2 diabetes mellitus without retinopathy 07/202208/16/2022 Elevated PSA 12/01/2020 05/16/2022 NO SHOW 06/05/2015 03/10/2022 Right hip pain 01/19/2015 05/16/2022 DDD (degenerative disc disease), thoracic 201405/16/2022 Cervical strain 10/21/2014 03/10/2022 DDD (degenerative disc disease), cervical 201403/10/2022 documented as of this encounter (statuses as of 12/09/2022) [facility]01[facility] History of Past illness Narrative* Problem Noted Date Resolved Date Type 2 diabetes mellitus without retinopathy 07/202208/16/2022 Elevated PSA 12/01/2020 05/16/2022 NO SHOW 06/05/2015 03/10/2022 Right hip pain 01/19/2015 05/16/2022 DDD (degenerative disc disease), thoracic 201405/16/2022 Cervical strain 10/21/2014 03/10/2022 DDD (degenerative disc disease), cervical 201403/10/2022 documented as of this encounter (statuses as of 12/13/2022) [facility] History of Past illness Narrative* Problem Noted Date Resolved Date Type 2 diabetes mellitus without retinopathy 07/202208/16/2022 Elevated PSA 12/01/2020 05/16/2022 NO SHOW 06/05/2015 03/10/2022 Right hip pain 01/19/2015 05/16/2022 DDD (degenerative disc disease), thoracic 201405/16/2022 Cervical strain 10/21/2014 03/10/2022 DDD (degenerative disc disease), cervical 201403/10/2022 documented as of this encounter (statuses as of 12/15/2022) [facility] History of Past illness Narrative* Problem Noted Date Resolved Date Type 2 diabetes mellitus without retinopathy 07/202208/16/2022 Elevated PSA 12/01/2020 05/16/2022 NO SHOW 06/05/2015 03/10/2022 Right hip pain 01/19/2015 05/16/2022 DDD (degenerative disc disease), thoracic 201405/16/2022 Cervical strain 10/21/2014 03/10/2022 DDD (degenerative disc disease), cervical 201403/10/2022 documented as of this encounter (statuses as of 12/16/2022) [facility] History of Past illness Narrative* Problem Noted Date Resolved Date Type 2 diabetes mellitus without retinopathy 07/202208/16/2022 Elevated PSA 12/01/2020 05/16/2022 NO SHOW 06/05/2015 03/10/2022 Right hip pain 01/19/2015 05/16/2022 DDD (degenerative disc disease), thoracic 201405/16/2022 Cervical strain 10/21/2014 03/10/2022 DDD (degenerative disc disease), cervical 201403/10/2022 documented as of this encounter (statuses as of 12/20/2022) [facility] History of Past illness Narrative* Problem Noted Date Resolved Date Type 2 diabetes mellitus without retinopathy 07/202208/16/2022 Elevated PSA 12/01/2020 05/16/2022 NO SHOW 06/05/2015 03/10/2022 Right hip pain 01/19/2015 05/16/2022 DDD (degenerative disc disease), thoracic 201405/16/2022 Cervical strain 10/21/2014 03/10/2022 DDD (degenerative disc disease), cervical 201403/10/2022 documented as of this encounter (statuses as of 12/29/2022) [facility] History of Past illness Narrative* Problem Noted Date Resolved Date Type 2 diabetes mellitus without retinopathy 07/202208/16/2022 Elevated PSA 12/01/2020 05/16/2022 NO SHOW 06/05/2015 03/10/2022 Right hip pain 01/19/2015 05/16/2022 DDD (degenerative disc disease), thoracic 201405/16/2022 Cervical strain 10/21/2014 03/10/2022 DDD (degenerative disc disease), cervical 201403/10/2022 documented as of this encounter (statuses as of 01/17/2023) [facility] History of Past illness Narrative* Problem Noted Date Resolved Date Type 2 diabetes mellitus without retinopathy 07/202208/16/2022 Elevated PSA 12/01/2020 05/16/2022 NO SHOW 06/05/2015 03/10/2022 Right hip pain 01/19/2015 05/16/2022 DDD (degenerative disc disease), thoracic 201405/16/2022 Cervical strain 10/21/2014 03/10/2022 DDD (degenerative disc disease), cervical 201403/10/2022 documented as of this encounter (statuses as of 01/25/2023) [facility] History of Past illness Narrative* Problem Noted Date Resolved Date Type 2 diabetes mellitus without retinopathy 07/202208/16/2022 Elevated PSA 12/01/2020 05/16/2022 NO SHOW 06/05/2015 03/10/2022 Right hip pain 01/19/2015 05/16/2022 DDD (degenerative disc disease), thoracic 201405/16/2022 Cervical strain 10/21/2014 03/10/2022 DDD (degenerative disc disease), cervical 201403/10/2022 documented as of this encounter (statuses as of 02/06/2023) [facility] History of Past illness Narrative* Problem Noted Date Resolved Date Type 2 diabetes mellitus without retinopathy 07/202208/16/2022 Elevated PSA 12/01/2020 05/16/2022 NO SHOW 06/05/2015 03/10/2022 Right hip pain 01/19/2015 05/16/2022 DDD (degenerative disc disease), thoracic 201405/16/2022 Cervical strain 10/21/2014 03/10/2022 DDD (degenerative disc disease), cervical 201403/10/2022 documented as of this encounter (statuses as of 02/21/2023) [facility] History of Past illness Narrative* Problem Noted Date Diagnosed Date Resolved Date Type 2 diabetes mellitus without retinopathy 2 08/16/2022 Elevated PSA 12/01/2020 05/16/2022 NO SHOW 06/05/2015 03/10/2022 Right hip pain 01/19/2015 05/16/2022 DDD (degenerative disc disease), thoracic 10/21/2014 05/16/2022 Cervical strain 10/21/2014 03/10/2022 DDD (degenerative disc disease), cervical 10/21/2014 03/10/2022 documented as of this encounter (statuses as of 05/02/2023) [facility] History of Past illness Narrative* Problem Noted Date Diagnosed Date Resolved Date Type 2 diabetes mellitus without retinopathy 2 08/16/2022 Elevated PSA 12/01/2020 05/16/2022 NO SHOW 06/05/2015 03/10/2022 Right hip pain 01/19/2015 05/16/2022 DDD (degenerative disc disease), thoracic 10/21/2014 05/16/2022 Cervical strain 10/21/2014 03/10/2022 DDD (degenerative disc disease), cervical 10/21/2014 03/10/2022 documented as of this encounter (statuses as of 05/19/2023) [facility] History of Past illness Narrative* Problem Noted Date Diagnosed Date Resolved Date Type 2 diabetes mellitus without retinopathy 2 08/16/2022 Elevated PSA 12/01/2020 05/16/2022 NO SHOW 06/05/2015 03/10/2022 Right hip pain 01/19/2015 05/16/2022 DDD (degenerative disc disease), thoracic 10/21/2014 05/16/2022 Cervical strain 10/21/2014 03/10/2022 DDD (degenerative disc disease), cervical 10/21/2014 03/10/2022 documented as of this encounter (statuses as of 06/12/2023) [facility] History of Past illness Narrative* Problem Noted Date Diagnosed Date Resolved Date Type 2 diabetes mellitus without retinopathy 2 08/16/2022 Elevated PSA 12/01/2020 05/16/2022 NO SHOW 06/05/2015 03/10/2022 Right hip pain 01/19/2015 05/16/2022 DDD (degenerative disc disease), thoracic 10/21/2014 05/16/2022 Cervical strain 10/21/2014 03/10/2022 DDD (degenerative disc disease), cervical 10/21/2014 03/10/2022 documented as of this encounter (statuses as of 06/16/2023) [facility] History of Past illness Narrative* Problem Noted Date Diagnosed Date Resolved Date Type 2 diabetes mellitus without retinopathy 2 08/16/2022 Elevated PSA 12/01/2020 05/16/2022 NO SHOW 06/05/2015 03/10/2022 Right hip pain 01/19/2015 05/16/2022 DDD (degenerative disc disease), thoracic 10/21/2014 05/16/2022 Cervical strain 10/21/2014 03/10/2022 DDD (degenerative disc disease), cervical 10/21/2014 03/10/2022 documented as of this encounter (statuses as of 08/22/2023) [facility] History of Past illness Narrative* Problem Noted Date Diagnosed Date Resolved Date Type 2 diabetes mellitus without retinopathy 2 08/16/2022 Elevated PSA 12/01/2020 05/16/2022 NO SHOW 06/05/2015 03/10/2022 Right hip pain 01/19/2015 05/16/2022 DDD (degenerative disc disease), thoracic 10/21/2014 05/16/2022 Cervical strain 10/21/2014 03/10/2022 DDD (degenerative disc disease), cervical 10/21/2014 03/10/2022 documented as of this encounter (statuses as of 08/30/2023) [facility]10-12-2021 NoteHNO ID: [id number] Author: Trini Williamson, DO Service: ? Author Type: Physician Type: Progress Notes Filed: 07/06/2021 4:05 PM Note Text: ?? [facility] [place] [facility] LOCATION: [address] [place] [address] ESTABLISHED PATIENT PATIENT INFO: Bronson Ochoa 56 year old Chief Complaint: Prostate Cancer HPI F/U after MRI 1-Duration: 2020 2-Location: prostate 3-Severity: N/A 4-Quality: Not applicable 5-Context: N/A 6-Timing: N/A 7-Modifying factors: No treatment prior to referral 8-Associated signs AND symptoms: no additional symptoms No question data found. PATHOLOGY: PATHOLOGY: FINAL DIAGNOSIS A. ?Prostate, right base, biopsy ?? Atypical small acinar proliferation. B. ?Prostate, right mid, biopsy? Benign prostatic tissue. C. ?Prostate, right apex, biopsy ?Atypical small acinar proliferation. D. ?Prostate, right lateral base, biopsy ? Benign prostatic tissue. E. ?Prostate, right lateral mid, biopsy ? Prostatic adenocarcinoma, [place]omb score 3+3 = 6 (grade group 1), involving 12% of one core (2 mm tumor length). F. ?Prostate, right lateral apex, biopsy ? Benign prostatic tissue. G. ?Prostate, left base, biopsy ? Benign prostatic tissue. H. ?Prostate, left mid, biopsy ? Benign prostatic tissue. I. ?Prostate, left apex, biopsy ? Benign prostatic tissue. J. ?Prostate, left lateral base, biopsy ? Benign prostatic tissue. K. ?Prostate, left lateral mid, biopsy ? Benign prostatic tissue. L. ?Prostate, left lateral apex, biopsy ? High-grade prostatic intraepithelial neoplasia. ? Prostate Cancer Biopsy Summary ? Number of cores examined: 12 Number of cores positive: 1 Highest Grade Group: 1 Highest % of core involvement: 12% LAB: WBC (k/uL) Date Value 05/21/2021 11.06 (H) RBC (m/uL) Date Value 05/21/2021 4.28 Hemoglobin (g/dL) Date Value 05/21/2021 13.1 Hematocrit (%) Date Value 05/21/2021 39.4 MCV (fL) Date Value 05/21/2021 92.1 MCH (pG) Date Value 05/21/2021 30.6 MCHC (g/dL) Date Value 05/21/2021 33.2 RDW-CV (%) Date Value 05/21/2021 13.2 Platelet Count (k/uL) Date Value 05/21/2021 283 MPV (fL) Date Value 05/21/2021 10.2 Neut% (%) Date Value 05/21/2021 61.2 Lymph% (%) Date Value 05/21/2021 28.6 Willacy% (%) Date Value 05/21/2021 8.0 Eosin% (%) Date Value 05/21/2021 1.7 Baso% (%) Date Value 05/21/2021 0.5 Abs Neut (ANC) (k/uL) Date Value 05/21/2021 6.76 Abs Willacy (k/uL) Date Value 05/21/2021 0.89 (H) Abs Eosin (k/uL) Date Value 05/21/2021 0.19 Abs Baso (k/uL) Date Value 05/21/2021 0.06 Creatinine Date Value Ref Range Status 05/21/2021 0.97 0.73 - 1.22 mg/dL Final 11/17/2020 0.99 0.73 - 1.22 mg/dL Final PSA (ng/mL) Date Value 11/20/2020 8.67 PSA Screening (ng/mL) Date Value 11/17/2020 11.85 PSA, Percent Free (%) Date Value 11/20/2020 11 URINE POC GLUCOSE UA (POCT) 250 11/27/2020 BILIRUBIN UA (POCT) Negative 11/27/2020 KETONE UA (POCT) Trace 11/27/2020 SPECIFIC GRAVITY UA (POCT) 1.025 11/27/2020 HEMOGLOBIN/BLOOD UA (POCT) Negative 11/27/2020 PH UA (POCT) 5.5 11/27/2020 PROTEIN UA (POCT) Trace 11/27/2020 UROBILINOGEN UA (POCT) 0.2 11/27/2020 NITRITE UA (POCT) Negative 11/27/2020 LEUKOCYTES UA (POCT) Negative 11/27/2020 COLOR UA (POCT) Yellow 11/27/2020 CLARITY UA (POCT) Clear 11/27/2020 IMAGING: MRI Prostate: IMPRESSION: PIRADS 3 in the anterior transition zone at the mid gland, likely atypical BPH nodule. Mild diffuse signal abnormalities of the lateral peripheral zone predominantly in the right mid gland but no focal lesion. No suspicious lymph node or lymphadenopathy in the pelvis. ALLERGIES: ALLERGIES Allergen Reactions - Lisinopril Swelling mouth and throat - Narcotics [Opioids * Itching - Tramadol Itching - Vicodin [Hydrocodon* Swelling mouth and throat MEDICATIONS: amLODIPine (NORVASC) 5 mg tablet Take 1 tablet by mouth once daily. cholecalciferol (VITAMIN D-3) 5,000 unit tab Take 1 tablet by mouth once daily. pravastatin (PRAVACHOL) 20 mg tablet Take 1 tablet by mouth once daily. pravastatin (PRAVACHOL) 40 mg tablet Take 1 tablet by mouth once daily. pantoprazole DR (PROTONIX) 40 mg tablet Take 1 tablet by mouth once daily. metFORMIN (GLUCOPHAGE) 500 mg tablet Take 1 tablet by mouth twice daily with meals. magnesium oxide 400 mg magnesium cap Take 1 capsule by mouth twice daily. loratadine 10 mg cap Take 1 capsule by mouth once daily. hydroCHLOROthiazide (HYDRODIURIL, ESIDRIX) 25 mg tablet Take 1 tablet by mouth once daily. aspirin, enteric coated (ECOTRIN LOW STRENGTH) 81 mg EC tablet Take 1 tablet by mouth once daily. amitriptyline (ELAVIL) 25 mg tablet Take 1 tablet by mouth daily at bedtime. losartan (COZAAR) 25 mg tablet Take 1 tablet by mouth once daily. gabapentin (NEURONTIN) 300 mg capsule Take 1 capsule by mouth twice daily for 90 days. naproxe (more content not included)...[facility]10-08-2021 NoteHNO ID: [id number] Author: RT Noé(R) Service: Radiology Author Type: Table Maker Type: Progress Notes Filed: 07/02/2021 9:30 AM Note Text: Radiology Service Progress Note DATE OF SERVICE: July 02, 2021 TIME: 9:29 AM PATIENT IDENTITY VERIFICATION COMPLETED USING TWO (2) STANDARD IDENTIFIERS: Name and Date of confirmed by patient verbally. FALL SCREENING: Has the patient had 2 falls in the last year or 1 fall with injury or currently using an Ambulatory Assistive Device (Walker, Cane, Wheelchair, Crutches, etc.)? No PATIENT GENDER DATA: Male PATIENT RELEVANT IMPLANT DATA REVIEWED: Yes ALLERGIES: Reviewed and unchanged CONTRAST ALLERGY: NO. EXAM: MRI - CONTRAST TYPE: GROUP II PERIPHERAL IV DATA: Ambulatory: A peripheral IV was started in the Left antecubital site with a Angio cath: 22 gauge. RADIOLOGY DEPARTMENT: MR; Exam(s) Completed: Body: Prostate SIGNATURE: RT Noé(R) PATIENT NAME: Bronson Ochoa DATE: July 02, 2021 TIME: 9:29 [facility]03-09-2021 History of Past illness Narrative* Problem Noted Date Resolved Date Elevated PSA 12/01/2020 05/16/2022 NO SHOW 06/05/2015 03/10/2022 Right hip pain 01/19/2015 05/16/2022 DDD (degenerative disc disease), thoracic 201405/16/2022 Cervical strain 10/21/2014 03/10/2022 DDD (degenerative disc disease), cervical 201403/10/2022 documented as of this encounter (statuses as of 05/16/2022) [facility]03-09-[facility] History of Past illness Narrative* Problem Noted Date Resolved Date Elevated PSA 12/01/2020 05/16/2022 NO SHOW 06/05/2015 03/10/2022 Right hip pain 01/19/2015 05/16/2022 DDD (degenerative disc disease), thoracic 201405/16/2022 Cervical strain 10/21/2014 03/10/2022 DDD (degenerative disc disease), cervical 201403/10/2022 documented as of this encounter (statuses as of 05/23/2022) [facility]03-[facility] History of Past illness Narrative* Problem Noted Date Resolved Date Elevated PSA 12/01/2020 05/16/2022 NO SHOW 06/05/2015 03/10/2022 Right hip pain 01/19/2015 05/16/2022 DDD (degenerative disc disease), thoracic 201405/16/2022 Cervical strain 10/21/2014 03/10/2022 DDD (degenerative disc disease), cervical 201403/10/2022 documented as of this encounter (statuses as of 05/31/2022) [facility]03-[facility] History of Past illness Narrative* Problem Noted Date Resolved Date Elevated PSA 12/01/2020 05/16/2022 NO SHOW 06/05/2015 03/10/2022 Right hip pain 01/19/2015 05/16/2022 DDD (degenerative disc disease), thoracic 201405/16/2022 Cervical strain 10/21/2014 03/10/2022 DDD (degenerative disc disease), cervical 201403/10/2022 documented as of this encounter (statuses as of 06/03/2022) [facility] History of Past illness Narrative* Problem Noted Date Resolved Date Elevated PSA 12/01/2020 05/16/2022 NO SHOW 06/05/2015 03/10/2022 Right hip pain 01/19/2015 05/16/2022 DDD (degenerative disc disease), thoracic 201405/16/2022 Cervical strain 10/21/2014 03/10/2022 DDD (degenerative disc disease), cervical 201403/10/2022 documented as of this encounter (statuses as of 06/29/2022) [facility] History of Past illness Narrative* Problem Noted Date Resolved Date NO SHOW 06/05/2015 03/10/2022 Cervical strain 10/21/2014 03/10/2022 DDD (degenerative disc disease), cervical 201403/10/2022 documented as of this encounter (statuses as of 03/10/2022) [facility] History of Past illness Narrative* Problem Noted Date Resolved Date NO SHOW 06/05/2015 03/10/2022 Cervical strain 10/21/2014 03/10/2022 DDD (degenerative disc disease), cervical 201403/10/2022 documented as of this encounter (statuses as of 03/11/2022) [facility] History of Past illness Narrative* Problem Noted Date Resolved Date NO SHOW 06/05/2015 03/10/2022 Cervical strain 10/21/2014 03/10/2022 DDD (degenerative disc disease), cervical 201403/10/2022 documented as of this encounter (statuses as of 04/08/2022) [facility] History of Past illness Narrative* Problem Noted Date Resolved Date NO SHOW 06/05/2015 03/10/2022 Cervical strain 10/21/2014 03/10/2022 DDD (degenerative disc disease), cervical 201403/10/2022 documented as of this encounter (statuses as of 05/06/2022) [facility] Diagnosis 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 epilepticus, unspecified epilepsy type (HCC) [facility] Diagnosis 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 epilepticus, unspecified epilepsy type (HCC) [facility] Diagnosis Type 2 diabetes mellitus without complication, with long-term current use of insulin (HCC) Seasonal allergic rhinitis due to pollen Mixed hyperlipidemia 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 epilepticus, unspecified epilepsy type (HCC) Hypertension, essential Unspecified essential hypertension GERD without esophagitis Esophageal reflux Vitamin D deficiency Unspecified vitamin D deficiency [facility] Diagnosis Posttraumatic stress disorder- Primary Coronary artery disease involving [place] coronary artery of [place] heart without angina pectoris Mixed hyperlipidemia Type 2 diabetes mellitus without complication, with long-term current use of insulin (HCC) [facility] Diagnosis 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 epilepticus, unspecified epilepsy type (HCC) Hypertension, essential Unspecified essential hypertension [facility] Diagnosis Type 2 diabetes mellitus without complication, with long-term current use of insulin (HCC)- Primary Seasonal allergic rhinitis due to pollen Mixed hyperlipidemia 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 epilepticus, unspecified epilepsy type (HCC) Hypertension, essential Unspecified essential hypertension GERD without esophagitis Esophageal reflux Vitamin D deficiency Unspecified vitamin D deficiency Cervical spondylosis Cervical spondylosis without myelopathy Lower urinary tract symptoms (LUTS) Other symptoms involving urinary system Coronary artery disease involving [place] coronary artery of [place] heart without angina pectoris Posttraumatic stress disorder [facility] Diagnosis Posttraumatic stress disorder [facility] Diagnosis 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 epilepticus, unspecified epilepsy type (HCC) Hypertension, essential Unspecified essential hypertension [facility] Diagnosis Low back pain, unspecified back pain laterality, unspecified chronicity, unspecified whether sciatica present- Primary Cervical spondylosis Cervical spondylosis without myelopathy Left hip pain Pain in joint, pelvic region and thigh Need for vaccination Need for prophylactic vaccination and inoculation against unspecified single disease Mixed hyperlipidemia Type 2 diabetes mellitus without complication, with long-term current use of insulin (HCC) Prostate cancer (HCC) Malignant [facility] Hypertension, essential Unspecified essential hypertension 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 epilepticus, unspecified epilepsy type (HCC) [facility] Alcohol-induced chronic pancreatitis (HCC)- Primary Chronic pancreatitis [facility] Diagnosis Seasonal allergic rhinitis due to pollen Posttraumatic stress disorder [facility] Diagnosis Alcohol-induced chronic pancreatitis (HCC)- Primary Chronic pancreatitis [facility] Diagnosis Alcohol-induced chronic pancreatitis (HCC)- Primary Chronic pancreatitis Type 2 diabetes mellitus without complication, with long-term current use of insulin (HCC) Hypertension, essential Unspecified essential hypertension Cervical spondylosis Cervical spondylosis without myelopathy Nonintractable generalized 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 (HCC) Fatty liver due to alcoholism [facility] Diagnosis Hypertension, essential Unspecified essential hypertension 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 epilepticus, unspecified epilepsy type (HCC) [facility] Diagnosis Sore throat- Primary Acute pharyngitis URI, acute Acute upper respiratory infections of unspecified site [facility] Diagnosis Nausea- Primary Nausea alone Hypertension, essential Unspecified essential hypertension 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 epilepticus, unspecified epilepsy type (HCC) Alcohol-induced chronic pancreatitis (HCC) Chronic pancreatitis Dizziness Dizziness and giddiness Type 2 diabetes mellitus without complication, with long-term current use of insulin (HCC) [facility]* Diagnosis Type 2 diabetes mellitus without retinopathy (HCC)- Primary Type II or unspecified type diabetes mellitus without mention of complication, not stated as uncontrolled Primary open angle glaucoma (POAG) of both eyes, mild stage Hypertensive retinopathy, bilateral Combined form of age-related cataract, both eyes Meibomian gland dysfunction (MGD) of upper and lower lids of both eyes Glaucoma suspect, both eyes Preglaucoma, unspecified [facility] Diagnosis Posttraumatic stress disorder Seasonal allergic rhinitis due to pollen [facility] Diagnosis Type 2 diabetes mellitus without complication, with long-term current use of insulin (HCC)- Primary Dermatophytosis, nail Dermatophytosis of nail Pain in toe of left foot Pain in limb Pain in toe of right foot Pain in limb Diminished pulses in lower extremity Other symptoms involving cardiovascular system [facility] Diagnosis Type 2 diabetes mellitus without complication, with long-term current use of insulin (HCC)- Primary Encounter for immunization Need for other specified prophylactic vaccination against single bacterial disease [facility] Diagnosis Hypertension, essential Unspecified essential hypertension documented in this encounter [facility]* Diagnosis 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 epilepticus, unspecified epilepsy type ([facility]) documented in this encounter [facility] for referral (narrative)* Diagnostic Procedure Only (Routine) - Closed Specialty Diagnoses / Procedures Referred By Susie corrales Referred To Contact XR IMAGING Diagnoses Left hip pain Procedures XR HIP GENERAL 3V PELV/AP/LAT LEFT RADEX HIP UNILATERAL WITH PELVIS 2-3 VIEWS Lobito Mcmanus MD [address] [place] [address] Xr Imaging Referral ID Status Reason Start Date Expiration Date V isits Requested Visits Authorized [id number] Closed Auto-Generate d Referral 08/19/2022 09/18/2023 1 1 [facility] for referral (narrative)* Outpatient Procedure (Routine) - Authorized Specialty Diagnoses / Procedures Referred By Contac t Referred To [facility] Diagnoses Type 2 diabetes mellitus without complication, with long-term current use of insulin ([facility]) Diminished pulses in lower extremity Procedures PVR ANK PRESS [facility] NON-INVAS PHYSIOLOGIC STD EXTREMITY ART 2 LEVEL Rasheed Epps [address] [place] [address] [facility] [place] [address] [place] [address] Referral ID Status Reason Start Date Expiration Date Visits Requested Visits Authorized [id number] Authorized Auto-Generat ed Referral 05/19/2023 05/18/2024 1 1 [facility] Summary Purpose Family History No Family History Records FoundNo Family History Records FoundNo Family History Records FoundNo Family History Records FoundNo Family History Records Found Advance Directives No Advanced Directives Records FoundNo Advanced Directives Records FoundNo Advanced Directives Records FoundNo Advanced Directives Records FoundNo Advanced Directives Records Found Reason for Referral Specialty Diagnoses / Procedures Referred By Susie t Referred To Contact Optometry Diagnoses Type 2 diabetes mellitus without complication, with long-term current use of insulin (HCC) Procedures CONSULT TO OPTOMETRY OFFICE/OUTPATIENT [facility] 60-74 MINUTES Lobito Mcmanus MD [address] [place] [address] Referral ID Status Reason Start Date Expiration Date Visits Requested Visits Authorized [id number] Authorized PCP Requested Referral 02/06/2023 02/06/2024 1 1 Medications Administered Section Active Administered Medications - up to 3 most recent administrations Medication Order MAR Action Action Date Dose Rate Site PHENYLephrine 2.5 % 1 Drop (AK-DILATE, CRUZ-SYNEPHRINE) 1 Drop, BOTH EYES, DIRECTED, Starting on 02/21/23 at 1000, Until Tu02/21/23 at 2159, Administer for dilation PROTECT FROM LIGHT Given 02/21/2023 10:00 AM EDT 1 Drop proparacaine 0.5 % 1 Drop (ALCAINE) 1 Drop, BOTH EYES, DIRECTED, Starting on 02/21/23 at 1000, Until 02/21/23 at 2159, Administer for pneumo tonometry, tonopen tonometry, or pachymetry. In the event of a proparacaine shortage, administer tetracaine 0.5% ophthalmic drops 1 drop in the left eye as directed for pneumo tonometry, tonopen tonometry, or pachymetry Given 02/21/2023 10:00 AM EDT 1 Drop tropicamide 1 % 1 Drop (MYDRIACYL) 1 Drop, BOTH EYES, DIRECTED, Starting on 02/21/23 at 1000, Until Tu02/21/23 at 2159, Administer for dilation Given 02/21/2023 10:00 AM EDT 1 Drop Additional Source Comments (unrecognized sect ion and content) No Status Records FoundNo Status Records FoundNo Status Records FoundNo Status Records FoundNo Status Records Found INFORMATION SOURCE (unrecogn ized section and content) DATE CREATED AUTHOR AUTHOR'S ORGANIZ ATION 11/27/2019 [facility] DATE CREATED AUTHOR AUTHOR'S ORGANIZ ATION 12/24/2021 [facility] DATE CREATED AUTHOR AUTHOR'S ORGANIZ ATION [facility] DATE CREATED AUTHOR AUTHOR'S ORGANIZ ATION 06/18/2023 [facility] Source Comments (unrecognize d section and content) In the event this informatio n is protected by the Federal Confidentiality of Alcohol and Drug Abuse Patient Records regulations: The Federal rules restrict any use of the information to criminally investigate or prosecute any alcohol or drug abuse patient.[facility] the event this information is protected by the Federal Confidentiality of Alcohol and Drug Abuse Patient Records regulations: The Federal rules restrict any use of the information to criminally investigate or prosecute any alcohol or drug abuse patient.[facility] the event this information is protected by the Federal Confidentiality of Alcohol and Drug Abuse Patient Records regulations: The Federal rules restrict any use of the information to criminally investigate or prosecute any alcohol or drug abuse patient.[facility] the event this information is protected by the Federal Confidentiality of Alcohol and Drug Abuse Patient Records regulations: The Federal rules restrict any use of the information to criminally investigate or prosecute any alcohol or drug abuse patient.[facility] the event this information is protected by the Federal Confidentiality of Alcohol and Drug Abuse Patient Records regulations: The Federal rules restrict any use of the information to criminally investigate or prosecute any alcohol or drug abuse patient.[facility] the event this information is protected by the Federal Confidentiality of Alcohol and Drug Abuse Patient Records regulations: The Federal rules restrict any use of the information to criminally investigate or prosecute any alcohol or drug abuse patient.[facility] the event this information is protected by the Federal Confidentiality of Alcohol and Drug Abuse Patient Records regulations: The Federal rules restrict any use of the information to criminally investigate or prosecute any alcohol or drug abuse patient.[facility] the event this information is protected by the Federal Confidentiality of Alcohol and Drug Abuse Patient Records regulations: The Federal rules restrict any use of the information to criminally investigate or prosecute any alcohol or drug abuse patient.[facility] the event this information is protected by the Federal Confidentiality of Alcohol and Drug Abuse Patient Records regulations: The Federal rules restrict any use of the information to criminally investigate or prosecute any alcohol or drug abuse patient.[facility] Hospital[facility] the event this information is protected by the Federal Confidentiality of Alcohol and Drug Abuse Patient Records regulations: The Federal rules restrict any use of the information to criminally investigate or prosecute any alcohol or drug abuse patient.[facility] Hospital[facility] the event this information is protected by the Federal Confidentiality of Alcohol and Drug Abuse Patient Records regulations: The Federal rules restrict any use of the information to criminally investigate or prosecute any alcohol or drug abuse patient.[facility] the event this information is protected by the Federal Confidentiality of Alcohol and Drug Abuse Patient Records regulations: The Federal rules restrict any use of the information to criminally investigate or prosecute any alcohol or drug abuse patient.[facility] the event this information is protected by the Federal Confidentiality of Alcohol and Drug Abuse Patient Records regulations: The Federal rules restrict any use of the information to criminally investigate or prosecute any alcohol or drug abuse patient.[facility] the event this information is protected by the Federal Confidentiality of Alcohol and Drug Abuse Patient Records regulations: The Federal rules restrict any use of the information to criminally investigate or prosecute any alcohol or drug abuse patient.[facility] the event this information is protected by the Federal Confidentiality of Alcohol and Drug Abuse Patient Records regulations: The Federal rules restrict any use of the information to criminally investigate or prosecute any alcohol or drug abuse patient.[facility] Hospital[facility] the event this information is protected by the Federal Confidentiality of Alcohol and Drug Abuse Patient Records regulations: The Federal rules restrict any use of the information to criminally investigate or prosecute any alcohol or drug abuse patient.[facility] Hospital[facility] the event this information is protected by the Federal Confidentiality of Alcohol and Drug Abuse Patient Records regulations: The Federal rules restrict any use of the information to criminally investigate or prosecute any alcohol or drug abuse patient.[facility] HospitalIn the event this information is protected by the Federal Confidentiality of Alcohol and Drug Abuse Patient Records regulations: The Federal rules restrict any use of the information to criminally investigate or prosecute any alcohol or drug abuse patient.[facility] HospitalIn the event this information is protected by the Federal Confidentiality of Alcohol and Drug Abuse Patient Records regulations: The Federal rules restrict any use of the information to criminally investigate or prosecute any alcohol or drug abuse patient.[facility] HospitalIn the event this information is protected by the Federal Confidentiality of Alcohol and Drug Abuse Patient Records regulations: The Federal rules restrict any use of the information to criminally investigate or prosecute any alcohol or drug abuse patient.[facility] HospitalIn the event this information is protected by the Federal Confidentiality of Alcohol and Drug Abuse Patient Records regulations: The Federal rules restrict any use of the information to criminally investigate or prosecute any alcohol or drug abuse patient.[facility] HospitalIn the event this information is protected by the Federal Confidentiality of Alcohol and Drug Abuse Patient Records regulations: The Federal rules restrict any use of the information to criminally investigate or prosecute any alcohol or drug abuse patient.[facility] HospitalIn the event this information is protected by the Federal Confidentiality of Alcohol and Drug Abuse Patient Records regulations: The Federal rules restrict any use of the information to criminally investigate or prosecute any alcohol or drug abuse patient.[facility] HospitalIn the event this information is protected by the Federal Confidentiality of Alcohol and Drug Abuse Patient Records regulations: The Federal rules restrict any use of the information to criminally investigate or prosecute any alcohol or drug abuse patient.[facility] HospitalIn the event this information is protected by the Federal Confidentiality of Alcohol and Drug Abuse Patient Records regulations: The Federal rules restrict any use of the information to criminally investigate or prosecute any alcohol or drug abuse patient.[facility] HospitalIn the event this information is protected by the Federal Confidentiality of Alcohol and Drug Abuse Patient Records regulations: The Federal rules restrict any use of the information to criminally investigate or prosecute any alcohol or drug abuse patient.[facility] HospitalIn the event this information is protected by the Federal Confidentiality of Alcohol and Drug Abuse Patient Records regulations: The Federal rules restrict any use of the information to criminally investigate or prosecute any alcohol or drug abuse patient.[facility] HospitalIn the event this information is protected by the Federal Confidentiality of Alcohol and Drug Abuse Patient Records regulations: The Federal rules restrict any use of the information to criminally investigate or prosecute any alcohol or drug abuse patient.[facility] HospitalIn the event this information is protected by the Federal Confidentiality of Alcohol and Drug Abuse Patient Records regulations: The Federal rules restrict any use of the information to criminally investigate or prosecute any alcohol or drug abuse patient.[facility] HospitalIn the event this information is protected by the Federal Confidentiality of Alcohol and Drug Abuse Patient Records regulations: The Federal rules restrict any use of the information to criminally investigate or prosecute any alcohol or drug abuse patient.[facility] HospitalIn the event this information is protected by the Federal Confidentiality of Alcohol and Drug Abuse Patient Records regulations: The Federal rules restrict any use of the information to criminally investigate or prosecute any alcohol or drug abuse patient.[facility] HospitalIn the event this information is protected by the Federal Confidentiality of Alcohol and Drug Abuse Patient Records regulations: The Federal rules restrict any use of the information to criminally investigate or prosecute any alcohol or drug abuse patient.[facility] HospitalIn the event this information is protected by the Federal Confidentiality of Alcohol and Drug Abuse Patient Records regulations: The Federal rules restrict any use of the information to criminally investigate or prosecute any alcohol or drug abuse patient.[facility] HospitalIn the event this information is protected by the Federal Confidentiality of Alcohol and Drug Abuse Patient Records regulations: The Federal rules restrict any use of the information to criminally investigate or prosecute any alcohol or drug abuse patient.[facility] HospitalIn the event this information is protected by the Federal Confidentiality of Alcohol and Drug Abuse Patient Records regulations: The Federal rules restrict any use of the information to criminally investigate or prosecute any alcohol or drug abuse patient.[facility] HospitalIn the event this information is protected by the Federal Confidentiality of Alcohol and Drug Abuse Patient Records regulations: The Federal rules restrict any use of the information to criminally investigate or prosecute any alcohol or drug abuse patient.[facility] HospitalIn the event this information is protected by the Federal Confidentiality of Alcohol and Drug Abuse Patient Records regulations: The Federal rules restrict any use of the information to criminally investigate or prosecute any alcohol or drug abuse patient.[facility] Reason for Visit (unrecogniz ed section and content) Reason Onset Date Comments Refill Request 03/09/2022 Reason Comments Hospital F/U pancreatitis Establish Care from Family Practice Reason Comments Consult Initial [facility] Pt Outr each Reason Onset Date Comments Refill Request 04/08/2022 Reason Onset Date Comments Refill Request 05/05/2022 Reason Comments 2 month follow-up Reason Comments Results Reason Onset Date Comments Refill Request 06/02/2022 Reason Onset Date Comments Refill Request 06/29/2022 Reason Comments F/U 3 Month Reason Onset Date Comments Refill Request 09/20/2022 Reason Comments Patient Update Reason Comments ED Follow-up Reason Onset Date Comments Refill Request 11/14/2022 Reason Onset Date Comments Transition Of Care 12/06/2022 Reason Comments Hospital F/U Reason Onset Date Comments Refill Request 12/12/2022 Reason Comments Sore Throat Cough, fever, chills , congestion x3 days Reason Comments [facility] ER visit Reason Onset Date Comments Refill Request 01/16/2023 Reason Comments Diabetes Blood sugar: 146A1c: 10.9 Specialty Diagnoses / Procedures Referred By Susie corrales Referred To Contact Optometry Diagnoses Type 2 diabetes mellitus without complication, with long-term current use of insulin (HCC) Procedures CONSULT TO OPTOMETRY OFFICE/OUTPATIENT NEW HIGH MDM 60-74 MINUTES Lobito Mcmanus MD [address] [place], [place] [id number] Referral ID Status Reason Start Date Expiration Date V isits Requested Visits Authorized [id number] Closed PCP Requested Referral 02/06/2023 02/06/2024 1 1 Reason Onset Date Comments Refill Request 05/01/2023 Reason Comments New Nail Check Specialty Diagnoses / Procedures Referred By Susie corrales Referred To Contact Podiatry Diagnoses Type 2 diabetes mellitus without complication, with long-term current use of insulin ([facility]) Dermatophytosis, nail Procedures CONSULT TO PODIATRY OFFICE/OUTPATIENT NEW HIGH MDM 60-[place] [address] [place] [id number] Referral ID Status Reason Start Date Expiration Date V isits Requested Visits Authorized [id number] Closed PCP Requested Referral 05/04/2023 05/03/2024 1 1 Reason Comments 2 month follow up - blood sugar Reason Onset Date Comments Refill Request 08/21/2023 Reason Onset Date Comments Refill Request 08/29/2023 Care Teams (unrecognized sec tion and content) Wire Worker Relationship Specialty Start Date End Date Souleymane Kelly, AUTOMATION CONTROL TECHNICIAN.MEDICAL IMAGING DIRECTOR, DNP [address] [place] [address] PCP - General Family Practice 12/01/20 Heather Kelley CNP [address] [place] [address] Referring Neurology 04/06/18 Wire Worker Relationship Specialty Start Date End Date Souleymane Kelly, AUTOMATION CONTROL TECHNICIAN.MEDICAL IMAGING DIRECTOR, DNP [address] [place] [address] PCP - General Family Practice 12/01/20 Heather Kelley CNP [address] [place] [address] Referring Neurology 04/06/18 Wire Worker Relationship Specialty Start Date End Date Souleymane Kelly, AUTOMATION CONTROL TECHNICIAN.MEDICAL IMAGING DIRECTOR, DNP [address] [place] [address] PCP - General Family Practice 12/01/20 Heather Kelley CNP [address] [place] [address] Referring Neurology 04/06/18 Wire Worker Relationship Specialty Start Date End Date Lobito Mcmanus MD [address] [place] [address] PCP - General Internal Medicine 03/10/22 Heather Kelley CNP [address] [place] [address] Referring Neurology 04/06/18 Wire Worker Relationship Specialty Start Date End Date Lobito Mcmanus MD [address] [place] [address] PCP - General Internal Medicine 03/10/22 Heather Kelley CNP [address] [place] [address] Referring Neurology 04/06/18 Wire Worker Relationship Specialty Start Date End Date Lobito Mcmanus MD [address] [facility] [place] [address] PCP - General Internal Medicine 03/10/22 Heather Kelley, MEDICAL IMAGING DIRECTOR [address] [place] [address] Referring Neurology 04/06/18 Wire Worker Relationship Specialty Start Date End Date Lobito Mcmanus MD [address] [facility] [place] [address] PCP - General Internal Medicine 03/10/22 Heather Kelley, MEDICAL IMAGING DIRECTOR [address] [facility] [place] [address] Referring Neurology 04/06/18 Wire Worker Relationship Specialty Start Date End Date Lobito Mcmanus MD [address] [facility] [place] [address] PCP - General Internal Medicine 03/10/22 Heather Kelley, MEDICAL IMAGING DIRECTOR [address] [place] [address] Referring Neurology 04/06/18 Wire Worker Relationship Specialty Start Date End Date Lobito Mcmanus MD [address] [facility] [place] [address] PCP - General Internal Medicine 03/10/22 Heather Kelley, MEDICAL IMAGING DIRECTOR [address] [facility] [place] [address] Referring Neurology 04/06/18 Wire Worker Relationship Specialty Start Date End Date Lobito Mcmanus MD [address] [facility] [place] [address] PCP - General Internal Medicine 03/10/22 Heather Kelley CNP [address] [place] [address] Referring Neurology 04/06/18 Wire Worker Relationship Specialty Start Date End Date Lobito Mcmanus MD [address] [place] [address] PCP - General Internal Medicine 03/10/22 Heather Kelley CNP [address] [place] [address] Referring Neurology 04/06/18 Wire Worker Relationship Specialty Start Date End Date Lobito Mcmanus MD [address] [place] [address] PCP - General Internal Medicine 03/10/22 Heather Kelley CNP [address] [place] [address] Referring Neurology 04/06/18 Wire Worker Relationship Specialty Start Date End Date Souleymane Kelly APRN.MEDICAL IMAGING DIRECTOR, DNP [address] [place] [address] PCP - General Family Medicine 12/01/20 03/09/22 Lobito Mcmanus MD [address] [place] [address] PCP - General Internal Medicine 03/10/22 Heather Kelley CNP [address] [place] [address] Referring Neurology 04/06/18 Wire Worker Relationship Specialty Start Date End Date Lobito Mcmanus MD [address] [place] [address] PCP - General Internal Medicine 03/10/22 Heather Kelley CNP [address] [place] [address] Referring Neurology 04/06/18 Wire Worker Relationship Specialty Start Date End Date Lobito Mcmanus MD [address] [facility] [place] [address] PCP - General Internal Medicine 03/10/22 Heather Kelley, MEDICAL IMAGING DIRECTOR [address] [place] [address] Referring Neurology 04/06/18 Wire Worker Relationship Specialty Start Date End Date Lobito Mcmanus MD [address] [facility] [place] [address] PCP - General Internal Medicine 03/10/22 Heather Kelley, MEDICAL IMAGING DIRECTOR [address] [facility] [place] [address] Referring Neurology 04/06/18 Wire Worker Relationship Specialty Start Date End Date Lobito Mcmanus MD [address] [facility] [place] [address] PCP - General Internal Medicine 03/10/22 Heather Kelley, MEDICAL IMAGING DIRECTOR [address] [place] [address] Referring Neurology 04/06/18 Wire Worker Relationship Specialty Start Date End Date Lobito Mcmanus MD [address] [facility] [place] [address] PCP - General Internal Medicine 03/10/22 Heather Kelley, MEDICAL IMAGING DIRECTOR [address] [facility] [address] Referring Neurology 04/06/18 Wire Worker Relationship Specialty Start Date End Date Lobito Mcmanus MD [address] [facility] [place] [address] PCP - General Internal Medicine 03/10/22 Heather Kelley MEDICAL IMAGING DIRECTOR [address] [place] [address] Referring Neurology 04/06/18 Wire Worker Relationship Specialty Start Date End Date Lobito Mcmanus MD [address] [facility] [place] [address] PCP - General Internal Medicine 03/10/22 Heather Kelley MEDICAL IMAGING DIRECTOR [address] [place] [address] Referring Neurology 04/06/18 Wire Worker Relationship Specialty Start Date End Date Lobito Mcmanus MD [address] [facility] [place] [address] PCP - General Internal Medicine 03/10/22 Heather Kelley CNP [address] [place] [address] Referring Neurology 04/06/18 Wire Worker Relationship Specialty Start Date End Date Lobito Mcmanus MD [address] [facility] [place] [address] PCP - General Internal Medicine 03/10/22 Heather Kelley CNP [address] [place] [address] Referring Neurology 04/06/18 Wire Worker Relationship Specialty Start Date End Date Lobito Mcmanus MD [address] [facility] [place] [address] PCP - General Internal Medicine 03/10/22 Heather Kelley CNP [address] [place] [address] Referring Neurology 04/06/18 Wire Worker Relationship Specialty Start Date End Date Lobito Mcmanus MD [address] [place], [place] [id number] PCP - General Internal Medicine 03/10/22 Heather Kelley CNP [address] [place], [place] [address], [place] [address] Referring Neurology 04/06/18 Wire Worker Relationship Specialty Start Date End Date Lobito Mcmanus MD [address] [place], [place] [id number] PCP - General Internal Medicine 03/10/22 Heather Kelley CNP [address] [place], [place] [address], [place] [address] Referring Neurology 04/06/18 FOR RECORDS PERTAINING TO PATIENTS WHO ARE OR HAVE BEEN ENROLLED IN A CHEMICAL DEPENDENCY/SUBSTANCEABUSE PROGRAM, SOME INFORMATION MAY BE OMITTED. This clinical summary was aggregated from multiple sources. Caution should be exercised in using it in the provision of clinical care. This summary normalizes information from multiple sources, and as a consequence, information in this document may materially change the coding, format and clinical context of patient data. In addition, data may be omitted in some cases. CLINICAL DECISIONS SHOULD BE BASED ON THE PRIMARY CLINICAL RECORDS. [facility] [employer] [facility] provides no warranty or guarantee of the accuracy or completeness of information in this document.
[2023-10-10] MEDS: Famotidine 200 MG/20 ML MDV 20 MG in 0.9% Normal Saline (Pres. free 8 ML 300 MG IV (05:19)
[2023-10-10] MEDS: Mag Hydrox/Al Hydrox/Simeth 30 ML UDC PO (05:20)
[2023-10-10 05:24] LABS: Absolute Neutrophil Count 7.9 X10^3/uL (2.0-7.7); Basophil# 0.04 X10^3/uL; Basophil% 0.3 % (0-1); Eosinophil# 0.23 X10^3/uL; Eosinophils% 1.9 % (0-5); Hematocrit 40.4 % (40-54); Hemoglobin 13.5 g/dL (13.0-16.5); Lymphocyte % 26.7 % (19-41); Mean Corp Hgb Conc 33.4 g/dL (32-36); Mean Corpuscular Hgb 30.8 pg (27.0-32.0); Mean Corpuscular Volume 92.2 fL (80-94); Mean Platelet Vol. 10.1 fl (6.2-12.0); Monocyte# 0.85 X10^3/uL; Monocyte% 6.9 % (0-10); NRBC Flagged by Analyzer 0 % (0-5); Neutrophil # 7.89 X10^3/uL (2.7-7.7); Neutrophil % 63.9 % (47-70); Platelet Count 173 K/mm3 (150-450); RBC Distribution Width CV 12.4 % (11.6-14.6); RBC Distribution Width SD 42.4 fl (35.1-43.9); Red Blood Count 4.38 M/mm3 (4.6-6.2); White Blood Count 12.4 K/mm3 (4.4-11.0)
--- NOTE | 2023-10-10 05:41 | CT_ITS ---
INDICATION: Epigastric pain since Monday, history of pancreatitis EXAMINATION: CT Abdomen And Pelvis W/ Contrast Injection TECHNIQUE: Helically acquired images were obtained of the abdomen and pelvis following IV contrast. 2-D reconstructions reviewed. A radiation dose optimization technique was used for this scan. IV Contrast dosage and agent: 100 cc [id number]-300 Oral contrast: None. COMPARISON: Contrast-enhanced CT abdomen and pelvis from 08/09/2023 FINDINGS: LOWER CHEST: No acute findings within the imaged lung bases. Heart size within normal limits. LIVER: Small area of benign focal fat within left lobe adjacent to falciform ligament. No concerning lesion. GALLBLADDER AND BILIARY TREE: Status post cholecystectomy. No significant biliary ductal dilation. PANCREAS: Equivocal subtle fat stranding adjacent to distal pancreas. No discrete mass. SPLEEN: Normal size without concerning lesion. ADRENAL GLANDS: Unremarkable. KIDNEYS AND URETERS: Normal renal size and position. No perinephric edema or hydronephrosis. No concerning lesion. Stable small simple appearing left renal cyst requiring no additional follow-up at this time. PERITONEUM: No significant free fluid. No peritoneal free air detected. RETROPERITONEUM: No retroperitoneal mass or pathologic fluid collection. BOWEL: Normal appendix medial to cecum within right lower quadrant. Gastric wall thickening versus underdistention. No bowel obstruction. Noninflamed distal colonic diverticula. LYMPH NODES: No enlarged mesenteric or retroperitoneal lymph nodes. VESSELS: Mild to moderate atherosclerosis with no abdominal aortic aneurysm. URINARY BLADDER: Unremarkable as visualized. REPRODUCTIVE ORGANS: Stable slightly enlarged prostate gland. ABDOMINAL WALL: No acute findings or significant hernia defect. BONES: Intact with no suspicious osseous lesion. CT/Abdomen/Pelvis W IV Cont ONLY IMPRESSION: 1. Equivocal mild peripancreatic edema/pancreatitis. Correlate with pancreatic enzymes. 2. Gastric wall thickening versus underdistention. Consider further evaluation with upper GI series or EGD. 3. Other nonurgent findings within body of report. Electronically Signed: Americo Matson MD at 6:58 EST ,
[2023-10-10 05:42] LABS: AST(SGOT) 13 U/L (15-37); Alanine Aminotransfer ALT/SGPT 19 U/L (16-61); Albumin, Serum 4.4 g/dL (3.2-5.0); Alkaline Phosphatase 80 U/L (45-117); Anion Gap 9 (5-15); BUN 25 mg/dL (7-18); BUN/Creat Ratio 17.1 RATIO (10-20); Bilirubin, Direct 0.18 mg/dL (0.00-0.30); Calcium,Total 9.4 mg/dL (8.5-10.1); Chloride 104 mmol/L (98-107); Creatinine, Serum 1.46 mg/dL (0.70-1.30); EST Glomerular Filtration Rate 53 mL/min (>60); Est Glom Filt Rate - Afr Amer 64 mL/min (>60); Estimated Creatinine Clearance 60.11 ml/min; Globulin 3.8 g/dL (2.2-4.2); Glucose 232 mg/dL (74-106); Lipase 71 U/L (13-75); Potassium 3.7 mmol/L (3.5-5.1); Protein, Total 8.2 g/dL (6.4-8.2); Sodium Level 139 mmol/L (136-145)
[2023-10-10] MEDS: Ondansetron 4 MG/2 ML Vial IV (06:05)
[2023-10-10] MEDS: 0.9% Normal Saline (1000mL) 1,000 ML 999 ML IV (06:05)
[2023-10-10] MEDS: MethylPREDNISolone 125 MG/2 ML Vial IV (06:07)
[2023-10-10] MEDS: DiphenhydrAMINE 50 MG/ML Syringe 25 MG IV (06:07)
[2023-10-10] MEDS: Morphine 4 MG/ML Syringe IV (06:07)
[2023-10-10 06:52] VITALS: BP 140/89; PULSE 89; RESP 16; O2SAT 98
--- NOTE | 2023-10-10 07:05 | EDS_ITS ---
HPI History of Present Illness Chief Complaint: Abd Pain Informant: patient and EMS Narrative Narrative: Is a 58-year-old male with past medical history of alcohol abuse hypertension and chronic pancreatitis. He was recently seen on October 04 by his GI physician at which time he was having improvement of symptoms and he was advised to continue his current medications. Patient states that he has not had any alcohol but last night after eating he noticed midepigastric pain. He states he took [id number] medication without any symptom improvement and he is concerned this is a flareup of his pancreatitis and therefore comes in for evaluation [facility] Medical History Alcohol abuse Anxiety and depression Cancer Constipation Diabetes Essential (primary) hypertension Family history of cerebral aneurysm Former tobacco use Gastric ulcer GERD (gastroesophageal reflux disease) GI bleed Glaucoma Hyperlipidemia Liver fibrosis Myocardial infarct Neck pain Polyneuropathy PSA elevation PTSD (post-traumatic stress disorder) Seizure disorder Stroke/cerebrovascular accident TIA (transient ischemic attack) Vision loss of left eye Vision loss of right eye Home Medications amitriptyline 25 mg tablet 25 mg PO QHS depression 07/03/18 [History Last Taken 11/27/22] cholecalciferol (vitamin D3) 125 mcg (5,000 unit) capsule 1 cap PO DAILY supplement 11/09/18 [History Last Taken 11/28/22] hydrochlorothiazide 25 mg tablet 25 mg PO DAILY blood pressure/heart #30 tabs 06/05/20 [Rx Last Taken 11/28/22] gabapentin 300 mg capsule 300 mg PO BID nerve pain 10/06/20 [History Last Taken 11/28/22] pantoprazole 40 mg tablet,delayed release 40 mg PO DAILY gerd 02/27/22 [History Last Taken 11/28/22] pravastatin 40 mg tablet 20 mg PO QHS cholesterol 02/27/22 [History Last Taken 11/27/22] metformin 500 mg tablet 500 mg PO BID diabetes #0 tabs 03/04/22 [Rx Last Taken 11/28/22] aspirin 81 mg tablet,delayed release 81 mg PO DAILY heart health 07/04/22 [History Last Taken 11/28/22] escitalopram oxalate 10 mg tablet 10 mg PO DAILY depression 07/04/22 [History Last Taken 11/28/22] loratadine 10 mg capsule 10 mg PO DAILY allergies 07/04/22 [History Last Taken 11/28/22] losartan 25 mg tablet 25 mg PO DAILY blood pressure 07/04/22 [History Last Taken 11/28/22] levocarnitine 330 mg tablet 330 mg PO BID #60 tabs 02/02/23 [Rx Last Taken Unknown] ondansetron 4 mg disintegrating tablet 4 mg PO Q8H PRN PRN Nausea #10 tabs 04/30/23 [Rx Last Taken Unknown] promethazine 25 mg tablet 25 mg PO Q6H PRN PRN Nausea #10 TABLETS 04/30/23 [Rx Last Taken Unknown] amoxicillin 875 mg-potassium clavulanate 125 mg tablet 1 tab PO BID #14 tabs 05/04/23 [Rx Last Taken Unknown] ondansetron 4 mg disintegrating tablet 4 mg PO Q8H PRN PRN Nausea #10 tabs 05/04/23 [Rx Last Taken Unknown] oxycodone 5 mg tablet 5 mg PO Q6H PRN pain 1 day #4 tabs 05/04/23 [Rx Last Taken Unknown] amlodipine 10 mg tablet 10 mg PO DAILY blood pressure #90 tabs 06/26/23 [Rx Last Taken Unknown] ondansetron 4 mg disintegrating tablet 4 mg PO Q8H PRN PRN Nausea 3 days #9 tabs 08/09/23 [Rx Last Taken Unknown] oxycodone 5 mg capsule 5 mg PO Q6H PRN pain 3 days #12 caps 08/09/23 [Rx Last Taken Unknown] levetiracetam 500 mg tablet 500 mg PO BID seizures #60 tabs 08/16/23 [Rx Last Taken Unknown] ursodiol 250 mg tablet 250 mg PO BID liver fibrosis #180 tabs 08/21/23 [Rx Last Taken Unknown] diphenhydramine HCl 25 mg capsule (Benadryl) 25 mg PO TID PRN allergy symptoms #30 caps 10/10/23 [Rx Last Taken Unknown] oxycodone-acetaminophen 5 mg-325 mg tablet (Percocet) 1 tab PO Q6H PRN pain 3 days #12 tabs 10/10/23 [Rx Last Taken Unknown] pantoprazole 40 mg tablet,delayed release (Protonix) 40 mg PO DAILY #30 tabs 10/10/23 [Rx Last Taken Unknown] Allergy/AdvReac Type Severity Reaction Status Date / Time Iodinated Contrast Media Allergy Mild Rash Verified 08/09/23 04:35 hydromorphone [From Dilaudid] Allergy Itching Verified 08/09/23 03:27 lisinopril Allergy Angioedema Verified 08/09/23 03:27 cyclobenzaprine AdvReac Severe Skin Verified 08/09/23 03:27 crawling hydrocodone bitartrate AdvReac Itching Verified 08/09/23 03:27 [From Vicodin] morphine AdvReac Itching Verified 08/09/23 03:27 tramadol AdvReac Itching Verified 08/09/23 03:27 Family History Mother Heart disease Sister Cerebral aneurysm Father Diabetes Kidney disease Anxiety and depression Surgical History History of cholecystectomy (12/2013) History of left heart catheterization (10/31/11) Social History household members: none Smoking Status: Former smoker Tobacco: How many years used: 7 Electronic Cigarette Use: not used alcohol intake: former details: 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 substance use type: does not use caffeine: No robbin/nondenominational: Muslim seatbelt use: always ROS ROS ED Constitutional Constitutional ED: Denies chills or fever(s) ENT ENT ED: Denies sore throat Cardiovascular Cardiovascular: Denies chest pain Respiratory/Chest Respiratory/Chest: Denies cough or dyspnea Gastrointestinal Gastrointestinal: Reports abdominal pain and nausea; Denies diarrhea or vomiting Genitourinary Genitourinary ED: Denies dysuria Musculoskeletal Musculoskeletal: Denies myalgias Integumentary Denies rash Neurologic Neurologic: Denies headache(s) Hematologic/Lymphatic Hematologic/Lymphatic: Denies easy bleeding or easy bruising EXAM Physical Exam Const Vital Signs: 10/10/23 04:28 10/10/23 04:32 10/10/23 06:52 Temperature 97.8 F 97.8 F Temperature Source Oral Oral Pulse Rate 103 H 98 89 Respiratory Rate 16 16 16 Blood Pressure 116/85 H 129/88 H 140/89 H Blood Pressure Mean 95 101 106 Pulse Ox 97 98 98 Oxygen Delivery Method Room Air Room Air Room Air Positive well nourished and well developed General Appearance ED: well developed HEENT HEENT Narrative: Mucous membranes are slightly dry and tacky without secondary changes to suggest infection Eyes PERRL and EOMs intact bilaterally General Eye ED: Negative for scleral icterus Neck supple Resp normal respiratory effort and clear to auscultation bilaterally Cardio regular rhythm Rate: other Other Details: Slightly tachycardic rate with regular rhythm Radial and carotid pulses are equal and symmetric GI non-distended GI Narrative: Abdomen is soft and nondistended with pain on palpation in the midepigastric region without voluntary guarding or rigidity Auscultation: normoactive bowel sounds Palpation: soft Extremity normal to inspection Neuro oriented x3, CN's II-XII intact bilaterally and no sensory deficits noted Sensorium / Orientation: alert Motor Exam: strength 5/5 throughout Psych mental status grossly normal Skin no rashes or lesions noted General Skin Exam: Negative for jaundice MDM MDM MDM Narrative Medical decision making narrative: Patient arrived to the ER with stable vitals and a soft nonsurgical abdomen. As he recently saw his GI physician the chart was reviewed. The note from that time discusses that he would like to get a repeat CT scan and in the noted talks about having it done in the next 1 to 2 days after his appointment which was J anbhavesh 10. The patient never received the CT scan and therefore elected to check basic laboratory studies and order the CT scan with IV contrast today. Differential diagnosis is for gastritis versus acute on chronic pancreatitis versus colitis versus impacted biliary duct stone. Blood work revealed no clinically significant findings and his lipase was normal going against acute pancreatitis. CT scan showed thickening of the stomach wall most consistent with gastritis and mild edema around the pancreas which is chronic in nature. At this time as his lab work is not altered in any clinically significant fashion his CT scan does not show signs of obstruction or necrosis or worsening pancreatitis I do not feel there is need for admission and he is otherwise safe for discharge History & Record Review Discussion w/independent historian: EMS personnel and Patient Lab Data Attestation: I reviewed the patient's lab results. Labs: Laboratory Results - last 24 hr 10/10/23 04:32 WBC 12.4 H RBC 4.38 L Hgb 13.5 Hct 40.4 MCV 92.2 MCH 30.8 MCHC 33.4 RDW Std Deviation 42.4 RDW Coeff of Armin 12.4 Plt Count 173 MPV 10.1 Immature Gran % (Auto) 0.300 Neut % (Auto) 63.9 Lymph % (Auto) 26.7 [place] % (Auto) 6.9 Eos % (Auto) 1.9 Baso % (Auto) 0.3 Absolute Neuts (auto) 7.9 H Absolute Lymphs (auto) 3.30 Nucleated RBC % 0 Sodium 139 Potassium 3.7 Chloride 104 Carbon Dioxide 26.0 Anion Gap 9 BUN 25 H Creatinine 1.46 H Estim Creat Clear Calc 60.11 Est GFR (MDRD) Af Amer 64 Est GFR (MDRD) Non-Af 53 L BUN/Creatinine Ratio 17.1 Glucose 232 H Calcium 9.4 Total Bilirubin 0.60 Direct Bilirubin 0.18 AST 13 L ALT 19 Alkaline Phosphatase 80 Total Protein 8.2 Albumin 4.4 Globulin 3.8 Lipase 71 Radiography Diagnostic Testing: Clinical Impression(s) from Imaging Studies Abdomen/Pelvis CT 10/10/23 05:41 IMPRESSION: 1. Equivocal mild peripancreatic edema/pancreatitis. Correlate with pancreatic enzymes. 2. Gastric wall thickening versus underdistention. Consider further evaluation with upper GI series or EGD. 3. Other nonurgent findings within body of report. Electronically Signed: Americo Matson MD at 6:58 EST , Discharge Plan Triage Chief Complaint: Abd Pain ED Provider: Phillip Aguiar Dx/Rx/DC Orders Clinical Impression: Pancreatitis, GERD (gastroesophageal reflux disease), Essential (primary) hypertension Instructions: ED GERD (Adult), ED Pancreatitis Prescriptions: New pantoprazole [Protonix] 40 mg tablet,delayed release (DR/EC) 40 mg PO DAILY Qty: 30 0RF diphenhydramine HCl [Benadryl] 25 mg capsule 25 mg PO TID PRN (Reason: allergy symptoms) Qty: 30 0RF oxycodone-acetaminophen [Percocet] 5-325 mg tablet 1 tab PO Q6H PRN (Reason: pain) 3 Days Qty: 12 0RF No Action amitriptyline 25 mg tablet 25 mg PO QHS gabapentin 300 mg capsule 300 mg PO BID levocarnitine 330 mg tablet 330 mg PO BID Qty: 60 6RF Rx Instructions: must administer with a meal/food cholecalciferol (vitamin D3) 5,000 capsule 1 cap PO DAILY pantoprazole 40 mg Tablet,Delayed Release (Dr/Ec) 40 mg PO DAILY pravastatin 40 mg Tablet 20 mg PO QHS metformin 500 MG tablet 500 mg PO BID Qty: 0 0RF Hold Instructions: Hold for 3 days aspirin 81 mg Tablet,Delayed Release (Dr/Ec) 81 mg PO DAILY losartan 25 mg tablet 25 mg PO DAILY escitalopram oxalate 10 mg tablet 10 mg PO DAILY loratadine 10 MG capsule 10 mg PO DAILY promethazine [promethazine] 25 mg tablet 25 mg PO Q6H PRN PRN (Reason: Nausea) Qty: 10 0RF ondansetron [ondansetron] 4 mg tablet,disintegrating 4 mg PO Q8H PRN PRN (Reason: Nausea) Qty: 10 0RF amoxicillin-pot clavulanate 875-125 mg tablet 1 tab PO BID Qty: 14 0RF ondansetron 4 mg tablet,disintegrating 4 mg PO Q8H PRN PRN (Reason: Nausea) Qty: 10 0RF oxycodone 5 mg tablet 5 mg PO Q6H PRN (Reason: pain) 1 Days Qty: 4 0RF oxycodone 5 mg capsule 5 mg PO Q6H PRN (Reason: pain) 3 Days Qty: 12 0RF ondansetron 4 mg tablet,disintegrating 4 mg PO Q8H PRN PRN (Reason: Nausea) 3 Days Qty: 9 0RF hydrochlorothiazide 25 mg tablet 25 mg PO DAILY Qty: 30 11RF Hold Instructions: Hold for 3 days and start with 12.5 mg, half tablet daily. amlodipine 10 mg tablet 10 mg PO DAILY Qty: 90 3RF levetiracetam 500 mg tablet 500 mg PO BID Qty: 60 2RF ursodiol 250 mg tablet 250 mg PO BID Qty: 180 1RF Primary Care Provider: Lobito Maldonado Referrals: Lobito Maldonado MD [Primary Care Provider] - Disposition Disposition: Home, Self Care Discharge Date/Time: 10/10/23 08:59 Capacity Legal Mail Officer Reflex Medical hold order details:: IF a medical hold is selected below, a suggested order for a MEDICAL HOLD will reflex upon signing the document. Next of kin: [place] law dictates a PRIORITY LIST for identifying legal decision-maker/legal next of kin in the following order (LNOK): 1st: The patient?s legal guardian, if any 2nd: The patient's spouse (if status is questionable, consult Risk Management) 3rd: The patient?s adult child(lucien) (majority, if multiple children) 4th: The patient?s parents 5th: The patient?s adult siblings (majority, if multiple children siblings)
== END 2023-10-10 08:59 | disposition home or self-care (01) ==
PROVIDERS: Emergency Provider Emergency Medicine; PCP Internal Medicine; Visit Provider Emergency Medicine
DX: K86.1 Other chronic pancreatitis (principal); G40.909 Epilepsy, unspecified, not intractable, without status epilepticus; E11.9 Type 2 diabetes mellitus without complications; I10 Essential (primary) hypertension; K21.9 Gastro-esophageal reflux disease without esophagitis; E78.5 Hyperlipidemia, unspecified; I25.2 Old myocardial infarction; Z86.73 Personal history of transient ischemic attack (TIA), and cerebral infarction without residual deficits; Z79.82 Long term (current) use of aspirin; Z79.84 Long term (current) use of oral hypoglycemic drugs; Z79.899 Other long term (current) drug therapy; Z87.891 Personal history of nicotine dependence
CPT/HCPCS: 74177; 80048; 80076; 83690; 85025; 96361; 96374; 96375; 99283; J7030; Q9967; A4216; J2405; J3490

== ENCOUNTER 2023-11-07 08:10 | Emergency (ER) | payer MEDICARE, MEDICAID, SELFPAY ==
[2023-11-07 08:11] VITALS: BP 131/91; PULSE 124; RESP 16; TEMP 36.9; O2SAT 100; BMI 27.3
--- NOTE | 2023-11-07 08:41 | ED.VIS.GI ---
HPI HPI - GI History of Present Illness Chief Complaint: Abd Pain Informant: patient Abdominal Pain/Flank Pain Onset: Yesterday Context: Sudden Onset Timing: Continuous Quality: Sharp Location: Epigastric and RUQ Worsened by: - (Laying down) Relieved by: - (Ibuprofen, sitting up) Nausea/Vomiting/Emesis GI Symptom: Positive for Nausea; Negative for Vomiting Onset: Yesterday Diarrhea/Melena/Hematochezia GI Symptom: Negative for Diarrhea, Melena or Hematochezia Associated Symptoms Associated Symptoms: Negative for Dysuria, Frequency or Hematuria Narrative Narrative: Patient presents with abdominal pain that began yesterday. Patient states that the pain is over the epigastric and right upper quadrant areas. Patient states pain radiates into his back. Patient states the pain feels similar to prior episodes of pancreatitis. Patient describes his pain as sharp. Patient states it is constant. Patient states it began suddenly yesterday. Patient states he took some ibuprofen yesterday which did help. Patient states his pain is worse with lying down and better with sitting up. Patient admits to some nausea but denies any vomiting or diarrhea. Patient denies any melena or hematochezia. Patient admits to some decreased urine output but denies any dysuria or hematuria. [facility] Medical History Alcohol abuse Anxiety and depression Cancer Constipation Diabetes Essential (primary) hypertension Family history of cerebral aneurysm Former tobacco use Gastric ulcer GERD (gastroesophageal reflux disease) GI bleed Glaucoma Hyperlipidemia Liver fibrosis Myocardial infarct Neck pain Polyneuropathy PSA elevation PTSD (post-traumatic stress disorder) Seizure disorder Stroke/cerebrovascular accident TIA (transient ischemic attack) Vision loss of left eye Vision loss of right eye Home Medications amitriptyline 25 mg tablet 25 mg PO QHS depression 07/03/18 [History Last Taken 11/27/22] cholecalciferol (vitamin D3) 125 mcg (5,000 unit) capsule 1 cap PO DAILY supplement 11/09/18 [History Last Taken 11/28/22] hydrochlorothiazide 25 mg tablet 25 mg PO DAILY blood pressure/heart #30 tabs 06/05/20 [Rx Last Taken 11/28/22] gabapentin 300 mg capsule 300 mg PO BID nerve pain 10/06/20 [History Last Taken 11/28/22] pravastatin 40 mg tablet 20 mg PO QHS cholesterol 02/27/22 [History Last Taken 11/27/22] metformin 500 mg tablet 500 mg PO BID diabetes #0 tabs 03/04/22 [Rx Last Taken 11/28/22] aspirin 81 mg tablet,delayed release 81 mg PO DAILY heart health 07/04/22 [History Last Taken 11/28/22] escitalopram oxalate 10 mg tablet 10 mg PO DAILY depression 07/04/22 [History Last Taken 11/28/22] loratadine 10 mg capsule 10 mg PO DAILY allergies 07/04/22 [History Last Taken 11/28/22] losartan 25 mg tablet 25 mg PO DAILY blood pressure 07/04/22 [History Last Taken 11/28/22] amlodipine 10 mg tablet 10 mg PO DAILY blood pressure #90 tabs 06/26/23 [Rx Last Taken Unknown] ursodiol 250 mg tablet 250 mg PO BID liver fibrosis #180 tabs 08/21/23 [Rx Last Taken Unknown] diphenhydramine HCl 25 mg capsule (Benadryl) 25 mg PO TID PRN allergy symptoms #30 caps 10/10/23 [Rx Last Taken Unknown] pantoprazole 40 mg tablet,delayed release (Protonix) 40 mg PO DAILY #30 tabs 10/10/23 [Rx Last Taken Unknown] levocarnitine 330 mg tablet 660 mg (2 x 330 mg) PO BID #120 tabs 10/24/23 [Rx Last Taken Unknown] oxycodone-acetaminophen 5 mg-325 mg tablet (Percocet) 1 tab PO Q8H PRN pain 3 days #10 tabs 11/07/23 [Rx Last Taken Unknown] Allergy/AdvReac Type Severity Reaction Status Date / Time Iodinated Contrast Media Allergy Mild Rash Verified 11/07/23 08:11 hydromorphone [From Dilaudid] Allergy Itching Verified 11/07/23 08:11 lisinopril Allergy Angioedema Verified 11/07/23 08:11 cyclobenzaprine AdvReac Severe Skin Verified 11/07/23 08:11 crawling hydrocodone bitartrate AdvReac Itching Verified 11/07/23 08:11 [From Vicodin] morphine AdvReac Itching Verified 11/07/23 08:11 tramadol AdvReac Itching Verified 11/07/23 08:11 Family History Mother Heart disease Sister Cerebral aneurysm Father Diabetes Kidney disease Anxiety and depression Surgical History History of cholecystectomy (12/2013) History of left heart catheterization (10/31/11) Social History household members: none Smoking Status: Former smoker Tobacco: How many years used: 7 Electronic Cigarette Use: not used alcohol intake: former details: 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 substance use type: does not use caffeine: No robbin/sikhism: Zoroastrian seatbelt use: always ROS ROS ED Constitutional Constitutional ED: Denies chills or fever(s) Eyes Eyes: Denies blurry vision or change in vision ENT ENT ED: Denies rhinorrhea or sore throat Cardiovascular Cardiovascular: Denies chest pain or palpitations Respiratory/Chest Respiratory/Chest: Denies cough or dyspnea Gastrointestinal Gastrointestinal: Reports abdominal pain and nausea; Denies diarrhea, melena or vomiting Genitourinary Genitourinary ED: Denies dysuria or hematuria Musculoskeletal Musculoskeletal: Reports back pain and neck pain Integumentary Denies abscess or rash Neurologic Neurologic: Denies headache(s) or weakness Allergic/Immunologic Allergic/Immunologic ED: Denies mouth swelling or urticaria EXAM Physical Exam Const Vital Signs: 11/07/23 08:11 11/07/23 10:21 Temperature 98.4 F Temperature Source Temporal Pulse Rate 124 H 81 Respiratory Rate 16 16 Blood Pressure 131/91 H 136/88 H Blood Pressure Mean 104 104 Pulse Ox 100 95 Oxygen Delivery Method Room Air Positive well nourished and well developed General Appearance ED: well developed and NAD HEENT Reports moist mucous membranes Neck supple and no JVD Resp normal respiratory effort and clear to auscultation bilaterally Cardio regular rate and regular rhythm GI non-distended Palpation: soft and tender epigastric, LUQ and RUQ; Negative for guarding or rebound tenderness present Extremity full ROM General Extremety ED: Negative for edema or tenderness General Extremity: Negative for edema Neuro CN's II-XII intact bilaterally, moves all extremities and no sensory deficits noted Sensorium / Orientation: alert Motor Exam: strength 5/5 throughout Psych mental status grossly normal and thought process normal MDM MDM MDM Narrative Medical decision making narrative: Differential diagnosis includes pancreatitis, gastritis, gastroesophageal reflux disease, pyelonephritis, colitis, and viral illness. CBC will be obtained to assess for leukocytosis and anemia. Comprehensive metabolic profile will be obtained to assess for hepatic function, renal function, and electrolyte abnormality. Lipase will be obtained to assess for pancreatitis. Urinalysis will be obtained to assess for urinary tract infection. Lab Data Attestation: I reviewed the patient's lab results. Lab results narrative: CBC was reviewed and was within normal limits. Comprehensive metabolic profile was reviewed. Creatinine was slightly elevated at 1.32 and BUN was 20. These are consistent with prior results. Glucose was elevated at 352. The remainder is within normal limits. Lipase was reviewed and was elevated at 167. Labs: Laboratory Results - last 24 hr 11/07/23 09:10 WBC 9.6 RBC 4.44 L Hgb 13.9 Hct 40.3 MCV 90.8 MCH 31.3 MCHC 34.5 RDW Std Deviation 40.6 RDW Coeff of Armin 12.1 Plt Count 173 MPV 9.6 Immature Gran % (Auto) 0.300 Neut % (Auto) 71.6 H Lymph % (Auto) 20.1 [place] % (Auto) 6.5 Eos % (Auto) 1.0 Baso % (Auto) 0.5 Absolute Neuts (auto) 6.9 Absolute Lymphs (auto) 1.93 Nucleated RBC % 0 Sodium 135 L Potassium 4.1 Chloride 101 Carbon Dioxide 24.0 Anion Gap 10 BUN 20 H Creatinine 1.32 H Estim Creat Clear Calc 62.98 Est GFR (MDRD) Af Amer 72 Est GFR (MDRD) Non-Af 59 L BUN/Creatinine Ratio 15.2 Glucose 352 H Calcium 9.5 Total Bilirubin 0.80 AST 9 L ALT 13 L Alkaline Phosphatase 75 Total Protein 7.8 Albumin 4.1 Globulin 3.7 Albumin/Globulin Ratio 1.1 Lipase 167 H Treatment and Re-Evaluation :: Patient was given IV fluids, morphine, Zofran, and Benadryl. Patient was advised of his findings. Patient states his pain was starting to return. Patient was given a dose of oxycodone. Patient was given a prescription for a short course of oxycodone. Patient was instructed to eat a clear liquid diet and advance as tolerated. Patient was instructed to follow-up with his primary care physician in 3 to 5 days. Patient was instructed return if worse in any way. Patient understood and was agreeable with the plan. All questions were answered. Discharge Plan Triage Chief Complaint: Abd Pain ED Provider: Rajendra Rios Dx/Rx/DC Orders Clinical Impression: Essential (primary) hypertension, Pancreatitis, Abdominal pain Instructions: ED Pancreatitis Prescriptions: New oxycodone-acetaminophen [Percocet] 5-325 mg tablet 1 tab PO Q8H PRN (Reason: pain) 3 Days Qty: 10 0RF No Action amitriptyline 25 mg tablet 25 mg PO QHS gabapentin 300 mg capsule 300 mg PO BID levocarnitine 330 mg tablet 660 mg PO BID Qty: 120 7RF Rx Instructions: must administer with a meal/food cholecalciferol (vitamin D3) 5,000 capsule 1 cap PO DAILY pravastatin 40 mg Tablet 20 mg PO QHS metformin 500 MG tablet 500 mg PO BID Qty: 0 0RF Hold Instructions: Hold for 3 days aspirin 81 mg Tablet,Delayed Release (Dr/Ec) 81 mg PO DAILY losartan 25 mg tablet 25 mg PO DAILY escitalopram oxalate 10 mg tablet 10 mg PO DAILY loratadine 10 MG capsule 10 mg PO DAILY pantoprazole [Protonix] 40 mg tablet,delayed release (DR/EC) 40 mg PO DAILY Qty: 30 0RF diphenhydramine HCl [Benadryl] 25 mg capsule 25 mg PO TID PRN (Reason: allergy symptoms) Qty: 30 0RF hydrochlorothiazide 25 mg tablet 25 mg PO DAILY Qty: 30 11RF Hold Instructions: Hold for 3 days and start with 12.5 mg, half tablet daily. amlodipine 10 mg tablet 10 mg PO DAILY Qty: 90 3RF ursodiol 250 mg tablet 250 mg PO BID Qty: 180 1RF Primary Care Provider: Lobito Maldonado Referrals: Lobito Maldonado MD [Primary Care Provider] - 3-5 Days Disposition Disposition: Home, Self Care
[2023-11-07] MEDS: 0.9% Normal Saline (1000mL) 1,000 ML 1000 ML IV (09:09)
[2023-11-07] MEDS: Ondansetron 4 MG/2 ML Vial IV (09:10)
[2023-11-07] MEDS: Morphine 4 MG/ML Syringe IV (09:11)
[2023-11-07] MEDS: DiphenhydrAMINE 50 MG/ML Syringe 25 MG IV (09:12)
[2023-11-07 09:21] LABS: Absolute Lymphocyte Count 1.93 X10^3/uL (0.83-4.51); Absolute Neutrophil Count 6.9 X10^3/uL (2.0-7.7); Basophil# 0.05 X10^3/uL; Basophil% 0.5 % (0-1); Hematocrit 40.3 % (40-54); Hemoglobin 13.9 g/dL (13.0-16.5); Lymphocyte # 1.93 X10^3/ul (0.83-4.51); Lymphocyte % 20.1 % (19-41); Mean Corp Hgb Conc 34.5 g/dL (32-36); Mean Corpuscular Hgb 31.3 pg (27.0-32.0); Mean Corpuscular Volume 90.8 fL (80-94); Mean Platelet Vol. 9.6 fl (6.2-12.0); Monocyte# 0.62 X10^3/uL; Monocyte% 6.5 % (0-10); NRBC Flagged by Analyzer 0 % (0-5); Neutrophil # 6.86 X10^3/uL (2.7-7.7); Neutrophil % 71.6 % (47-70); Platelet Count 173 K/mm3 (150-450); RBC Distribution Width CV 12.1 % (11.6-14.6); RBC Distribution Width SD 40.6 fl (35.1-43.9); Red Blood Count 4.44 M/mm3 (4.6-6.2); White Blood Count 9.6 K/mm3 (4.4-11.0)
[2023-11-07 09:38] LABS: ALB/GLOB Ratio 1.1 RATIO (0.9-2.4); AST(SGOT) 9 U/L (15-37); Alanine Aminotransfer ALT/SGPT 13 U/L (16-61); Albumin, Serum 4.1 g/dL (3.2-5.0); Alkaline Phosphatase 75 U/L (45-117); Anion Gap 10 (5-15); BUN 20 mg/dL (7-18); BUN/Creat Ratio 15.2 RATIO (10-20); Calcium,Total 9.5 mg/dL (8.5-10.1); Chloride 101 mmol/L (98-107); Creatinine, Serum 1.32 mg/dL (0.70-1.30); EST Glomerular Filtration Rate 59 mL/min (>60); Est Glom Filt Rate - Afr Amer 72 mL/min (>60); Estimated Creatinine Clearance 62.98 ml/min; Globulin 3.7 g/dL (2.2-4.2); Glucose 352 mg/dL (74-106); Lipase 167 U/L (13-75); Potassium 4.1 mmol/L (3.5-5.1); Protein, Total 7.8 g/dL (6.4-8.2); Sodium Level 135 mmol/L (136-145)
--- OUTSIDE RECORDS SUMMARY | 2023-11-07 09:51 | XMS RPT_ITS | CCD ---
Author Name Unknown Address [id number] [place] [address] Organization [facility] Care Team Providers Care Retail Performance Specialist Name Role Phone Elvin Linares Unavailable Unavailable PROVIDER, UNKNOWN Unavailable Unavailable Natasha Zamudio Unavailable Unavailable Elvin Linares Unavailable Unavailable Elvin Linares Unavailable Unavailable Tara Wadsworth Unavailable Warren WELLNESS TRAINER, [place] Unavailable Blarustam HOG WORKER.WELLNESS TRAINER, Souleymane COREA Primary Care Provider EUGENIO BENITEZ Attending UnavailSOULEYMANE Smith Primary Care Unavailable Lobito Mcmanus MD Primary Care Provider Warren WELLNESS TRAINER, [place] Unavailable Lobito Mcmanus MD Primary Care Provider Warren WELLNESS TRAINER, [place] S Unavailable Warren WELLNESS TRAINER, [place] Unavailable Lobito Mcmanus MD Primary Care Provider Robin HOG WORKER.WELLNESS TRAINER, Souleymane COREA Primary Care Provider LOBITO MCMANUS Primary Care Unavailable LOBITO MCMANUS Referring Unavailable LOBITO MCMANUS Primary Care Unavailable LOBITO MCMANUS Primary Care Unavailable LOBITO MCMANUS Attending Unavailable LOBITO MCMANUS Primary Care Unavailable ALIS CHUA Attending Unavailable LOBITO MCMANUS Attending Unavailable LOBITO MCMANUS Primary Care Unavailable LOBITO MCMANUS Primary Care Unavailable ALIS CHUA Attending Unavailable LOBITO MCMANUS Primary Care Unavailable LOBITO MCMANUS Referring Unavailable TESTRAKE, RASHEED Attending Unavailable LOBITO MCMANUS Primary Care Unavailable LOBITO MCMANUS Referring Unavailable LOBITO MCMANUS Primary Care Unavailable LOBITO MCMANUS Referring Unavailable LOBITO MCMANUS Attending Unavailable LOBITO MCMANUS Primary Care Unavailable LOBITO MCMANUS Primary Care Unavailable LOBITO MCMANUS Referring Unavailable THIAGO GALICIA Attending Unavailable LOBITO MCMANUS Primary Care Unavailable LOBITO MCMANUS Attending Unavailable Allergies Allergy Classification Reported Allergen(s) Allergy Type Date of Onset Reaction(s) Facility (2 sources) Acetaminophen / HYDROcodone Drug Allergy 4 skin crawling [facility] Work Phone: (20 sources) cyclobenzaprine; Translations: [CYCLOBENZAPRINE] Drug Allergy 4 Itching [facility] Work Phone: (20 sources) Lisinopril; Translations: [LISINOPRIL] Drug Allergy 3 Swelling [facility] Work Phone: (20 sources) Acetaminophen / HYDROcodone; Translations: [HYDROCODONE-ACET AMINOPHEN] Drug Allergy 3 Swelling [facility] Work Phone: (20 sources) Morphinan opioid; Translations: [OPIOIDS - MORPHINE ANALOGUES] Drug Allergy 1 Itching [facility] (20 sources) traMADol; Translations: [TRAMADOL] Drug Allergy 6 Itching [facility] (1 source) Morphine; Translations: [MORPHINE] Drug Allergy 2 [facility] (8 sources) Iodinated Contrast Media; Translations: [IODINATED CONTRAST MEDIA] Drug Allergy 3 Itching [facility] Medications Current Medications Medication Drug Class(es) [...] Vaccination needed; Translations: [Encounter for immunization] Episodic Nausea and vomiting (1 source) Nausea; [...] or infection, unspecified] Onset: 07-13-2022 08-21-2022 Episodic Retinal detachments; defects; vascular occlusion; and [...] involving the genitourinary system] Onset: 10-15-2021 Episodic Mycoses (2 sources) Onychomycosis due to dermatophyte ; Translations: [Tinea unguium] Onset: 05-19-2023 05-19-2023 Episodic Nonspecific chest pain (1 source) Chest pain, unspecified; Translations: [Chest pain, unspecified] Onset: 10-28-2011 10-28-2011 Episodic Other aftercare (1 source) penitentiary (current) use of insulin; Translations: [Type 2 [...] right hip] Onset: 01-19-2015 01-19-2015 Episodic Other screening for suspected conditions (not mental disorders or infectious disease) (17 sources) Electrocardiogram abnormal; Translations: [Raised prostate specific antigen] Onset: 10-28-2011 10-28-2011 Episodic Pneumonia (except that caused by tuberculosis or sexually transmitted disease) (1 source) Pneumonia, unspecified organism; Translations: [Pneumonia of left lower lobe due to infectious organism] Onset: 06-05-2023 Episodic Spondylosis; intervertebral disc disorders; other back [...] 12:37-0400 Body weight 82.1 kg Alis Older HOG WORKER.WELLNESS TRAINER Work Phone: [facility] 06-09-2023 12:37-0400 Diastolic blood pressure 84 mm[Hg] Alis Older HOG WORKER.WELLNESS TRAINER Work Phone: [facility] 06-09-2023 12:37-0400 Heart rate 106 /min Alis Older HOG WORKER.WELLNESS TRAINER Work Phone: [facility] 06-09-2023 12:37-0400 Respiratory rate 18 /min Alis Older HOG WORKER.WELLNESS TRAINER Work Phone: [facility] 06-09-2023 12:37-0400 SaO2% (BldA) [Mass fraction] 96 % Alis Older HOG WORKER.WELLNESS TRAINER Work Phone: [facility] 06-09-2023 12:37-0400 Systolic blood pressure 122 mm[Hg] Alis Older HOG WORKER.WELLNESS TRAINER Work Phone: [facility] 02-06-2023 13:21-0400 Diastolic blood pressure 83 mm[Hg] Lobito Mcmanus MD Work Phone: [facility] 02-06-2023 13:21-0400 Heart rate 109 /min Lobito Mcmanus MD Work Phone: [facility] 02-06-2023 13:21-0400 Systolic blood pressure 121 mm[Hg] Lobito Mcmanus MD Work Phone: [facility] 02-06-2023 13:18-0400 Body weight 82.56 kg Lobito Mcmanus MD Work Phone: [facility] 02-06-2023 13:18-0400 Respiratory rate 16 /min Lobito Mcmanus MD Work Phone: [facility] 12-15-2022 11:49-0400 Body temperature 98.29 [degF] Emmanuel Fritz MD Work Phone: [facility] 12-15-2022 11:49-0400 Body weight 82.74 kg Emmanuel Fritz MD Work Phone: [facility] 12-15-2022 11:49-0400 Diastolic blood pressure 76 mm[Hg] Emmanuel Fritz MD Work Phone: [facility] 12-15-2022 11:49-0400 Heart rate 122 /min Emmanuel Fritz MD Work Phone: [facility] 12-15-2022 11:49-0400 Respiratory rate 18 /min Emmanuel Fritz MD Work Phone: [facility] 12-15-2022 11:49-0400 SaO2% (BldA) [Mass fraction] 98 % Emmanuel Fritz MD Work Phone: [facility] 12-15-2022 11:49-0400 Systolic blood pressure 120 mm[Hg] Emmanuel Fritz MD Work Phone: [facility] 11-07-2022 15:16-0500 Diastolic blood pressure 80 mm[Hg] Alis Older HOG WORKER.WELLNESS TRAINER Work Phone: [facility] 11-07-2022 15:16-0500 Systolic blood pressure 134 mm[Hg] Alis Older HOG WORKER.WELLNESS TRAINER Work Phone: [facility] 11-07-2022 15:04-0500 Body weight 86.18 kg Alis Older HOG WORKER.WELLNESS TRAINER Work Phone: [facility] 11-07-2022 15:04-0500 Heart rate 109 /min Alis Older HOG WORKER.WELLNESS TRAINER Work Phone: [facility] 11-07-2022 15:04-0500 Respiratory rate 18 /min Alis Older HOG WORKER.WELLNESS TRAINER Work Phone: [facility] 08-19-2022 16:10-0500 Body weight 86.64 kg Lobito Mcmanus MD Work Phone: [facility] 08-19-2022 16:10-0500 Diastolic blood pressure 87 mm[Hg] Lobito Mcmanus MD Work Phone: [facility] 08-19-2022 16:10-0500 Heart rate 106 /min Lobito Mcmanus MD Work Phone: [facility] 08-19-2022 16:10-0500 Respiratory rate 18 /min Lobito Mcmanus MD Work Phone: [facility] 08-19-2022 16:10-0500 Systolic blood pressure 129 mm[Hg] Lobito Mcmanus MD Work Phone: [facility] 05-16-2022 15:45-0400 Body temperature 97.3 [degF] Lobito Mcmanus MD Work Phone: [facility] 05-16-2022 15:45-0400 Body weight 85.64 kg Lobito Mcmanus MD Work Phone: [facility] 05-16-2022 15:45-0400 Diastolic blood pressure 78 mm[Hg] Lobito Mcmanus MD Work Phone: [facility] 05-16-2022 15:45-0400 Heart rate 104 /min Lobito Mcmanus MD Work Phone: [facility] 05-16-2022 15:45-0400 Respiratory rate 18 /min Lobito Mcmanus MD Work Phone: [facility] 05-16-2022 15:45-0400 Systolic blood pressure 124 mm[Hg] Lobito Mcmanus MD Work Phone: [facility] 03-10-2022 09:38-0400 Body temperature 97.81 [degF] Lobito Mcmanus MD Work Phone: [facility] 03-10-2022 09:38-0400 Body weight 87.73 kg Lobito Mcmanus MD Work Phone: [facility] 03-10-2022 09:38-0400 Diastolic blood pressure 82 mm[Hg] Lobito Mcmanus MD Work Phone: [facility] 03-10-2022 09:38-0400 Heart rate 84 /min Lobito Mcmanus MD Work Phone: [facility] 03-10-2022 09:38-0400 Respiratory rate 18 /min Lobito Mcmanus MD Work Phone: [facility] 03-10-2022 09:38-0400 Systolic blood pressure 130 mm[Hg] Lobito Mcmanus MD Work Phone: [facility] 06-08-2017 14:33-0400 BMI (Body Mass Index) 29.95 kg/m2 [facility] Work Phone: 06-08-2017 14:33-0400 BP Diastolic 70 mm[Hg] Tara Wadsworth [facility] Work Phone: 06-08-2017 14:33-0400 BP Diastolic 80 mm[Hg] [facility] Work Phone: 06-08-2017 14:33-0400 BP Systolic 110 mm[Hg] [facility] Work Phone: 06-08-2017 14:33-0400 BP Systolic 120 mm[Hg] [facility] Work Phone: 06-08-2017 14:33-0400 Height 175.26 cm [facility] Work Phone: 06-08-2017 14:33-0400 Pulse (Heart Rate) 80 /min [facility] Work Phone: 06-08-2017 14:33-0400 Respiratory Rate 20 /min [facility] Work Phone: 06-08-2017 14:33-0400 Weight 91.99 kg [facility] Work Phone: 07-05-2016 11:40-0400 BSA (Body Surface Area) 2.14 m2 Tara Wadsworth [facility] Work Phone: Encounters Encounter Date Encounter Type Care Provider Facility Start: 10-24-2023 End: 10-24-2023 ambulatory LOBITO MCMANUS Facility:[facility] Start: 08-29-2023 Refill Lobito pollack MD Work Phone: [facility] [place] Procedures Date Procedure Procedure Detail Performing Clinician Start: 06-09-2023 INFLUENZA VACCINE, A GE 6 MO - 64 YR, QUADRIVALENT (AFLURIA, FLULAVAL, FLUZONE) Alis Older HOG WORKER.WELLNESS TRAINER Work Phone: Start: 02-21-2023 Computerized ophthal marielena imaging optic nerve Thiago Galicia MD Work Phone: Start: 02-06-2023 Gluc bld gluc mntr d ev cleared fda spec home use Lobito Mcmanus MD Work Phone: Start: 12-15-2022 STREP A MOLECULAR (POC) Emmanuel Fritz MD Work Phone: Start: 03-10-2022 Adult depression scr eening assessment Lobito Mcmanus MD Work Phone: Start: 06-17-2019 Colonoscopy Souleymane easton HOG WORKER.WELLNESS TRAINER, DNP Work Phone: Start: 06-08-2017 End: 06-08-2017 [...] Des Corrales MD Start: 02-26-2014 End: 02-26-2014 MANAGER QA Des Corrales MD Start: 02-26-2014 End: 06-08-2017 [...] Adult depression scr eening assessment Souleymane Kelly APRN.WELLNESS TRAINER, DNP Work Phone: Plan of Treatment Date Care Activity Detail Author Start: 03-26-2031 Urine microalbumin profile [facility] Start: 05-19-2027 PROSTATE CANCER SCRE ENING DISCUSSION PROSTATE CANCER SCREENING DISCUSSION [facility] Start: 11-17-2025 PROSTATE CANCER SCRE ENING DISCUSSION PROSTATE CANCER SCREENING DISCUSSION [facility] Start: 06-17-2024 Colonoscopy COLONOSCOPY [facility] Start: 06-17-2024 COLORECTAL CANCER SCREENING COLORECTAL CANCER SCREENING [facility] Start: 06-09-2024 Annual PCP Team Machine Silk Screen Printer demian Disease Visit Annual PCP Team Chronic Disease Visit [facility] Start: 05-19-2024 3 comp foot exam completed DIABETIC FOOT EXAM [facility] Start: 05-04-2024 ANNUAL PCP TEAM NETBACKUP ENGINEER DEMIAN DISEASE VISIT ANNUAL PCP TEAM CHRONIC DISEASE VISIT [facility] Start: 05-04-2024 BP CONTROLLED (<130/80) BP CONTROLLE D (<130/80) [facility] Start: 05-04-2024 Hepatitis B screening URINE AL BUMIN:CREATININE RATIO [facility] Start: 02-22-2024 Hepatitis C antibody , confirmatory test DILATED RETINAL EXAM [facility] Start: 02-07-2024 ANNUAL PCP TEAM NETBACKUP ENGINEER DEMIAN DISEASE VISIT ANNUAL PCP TEAM CHRONIC DISEASE VISIT [facility] Start: 01-26-2024 Hepatitis B surface antibody level LDL CHOLESTEROL [facility] Start: 12-16-2023 BP CONTROLLED (<130/80) BP CONTROLLE D (<130/80) [facility] Start: 12-10-2023 ANNUAL PCP TEAM NETBACKUP ENGINEER DEMIAN DISEASE VISIT ANNUAL PCP TEAM CHRONIC DISEASE VISIT [facility] Start: 12-10-2023 BP CONTROLLED (<130/80) BP CONTROLLE D (<130/80) [facility] Start: 11-07-2023 ANNUAL PCP TEAM NETBACKUP ENGINEER DEMIAN DISEASE VISIT ANNUAL PCP TEAM CHRONIC DISEASE VISIT [facility] Start: 11-04-2023 Hemoglobin A1c/Hemoglobin.total in Blood HBA1C [facility] Start: 08-19-2023 ANNUAL PCP TEAM NETBACKUP ENGINEER DEMIAN DISEASE VISIT ANNUAL PCP TEAM CHRONIC DISEASE VISIT [facility] Start: 08-19-2023 COVID-19 VACCINE (5 - Booster) COVID-19 VACCINE (5 - Booster) [facility] Immunizations Immunization Date Immunization Notes Care Provider Fa cility 06-09-2023 influenza, injectabl e, quadrivalent, contains preservative Alis Older HOG WORKER.WELLNESS TRAINER Work Phone: [facility] 08-19-2022 pneumococcal Conjugate, unspecified formulation Lobito Mcmanus MD Work Phone: [facility] Work Phone: 08-19-2022 pneumococcal (PCV20) vaccine, 20 valent (PREVNAR 20) Lobito Mcmanus MD Work Phone: [facility] 07-13-2022 influenza, seasonal, injectable Lobito Mcmanus MD Work Phone: [facility] 05-03-2021 COVID-19 vaccine, fu ll dose (MODERNA) Lobito Mcmanus MD Work Phone: [facility] Work Phone: 04-12-2021 COVID-19 vaccine, fu ll dose (MODERNA) Lobito Mcmanus MD Work Phone: [facility] Work Phone: 03-26-2021 tetanus toxoid, reduced diphtheria toxoid, and acellular pertussis vaccine, adsorbed Lobito Mcmanus MD Work Phone: [facility] Work Phone: 06-25-2020 influenza, seasonal, injectable Souleymane Kelly HOG WORKER.[facility] Work Phone: [facility] 06-25-2020 influenza, seasonal, injectable, preservative free Lobito Mcmanus MD Work Phone: [facility] Work Phone: 07-25-2018 influenza, injectabl e, quadrivalent, preservative free Souleymane Kelly HOG WORKER.[facility], DNP Work Phone: [facility] Work Phone: 06-24-2018 influenza, seasonal, injectable Lobito Mcmanus MD Work Phone: [facility] Work Phone: 06-24-2018 influenza, seasonal, injectable, preservative free Souleymane Kelly HOG WORKER.WELLNESS TRAINER, DNP Work Phone: [facility] Work Phone: 07-18-2016 influenza, seasonal, injectable Lobito Mcmanus MD Work Phone: [facility] Work Phone: 07-18-2016 influenza, seasonal, injectable, preservative free Souleymane Kelly HOG WORKER.WELLNESS TRAINER, DNP Work Phone: [facility] Work Phone: 04-29-2015 influenza, seasonal, injectable, preservative free Souleymane Kelly APRN.WELLNESS TRAINER, DNP Work Phone: [facility] Work Phone: Payers Date Payer Category Payer Medicare [id number] 2018 Medicare [id number] 2017 Medicaid [id number] 2017 Medicare [id number] 2017 Medicare [id number] 1965 Unknown [id number] Unknown Social History Date Type Detail Facility Start: 10-21-2014 End: 05-16-2022 Tobacco smoking status NHIS Ex-smoker [facility] Start: 10-21-2014 End: 02-06-2023 Cigarettes smoked current (pack per day) - Reported 0.5 [facility] Work Phone: Start: 10-21-2014 End: 05-16-2022 Tobacco use and exposure Smokeless tobacco non-user [facility] Start: 12-06-2021 Alcohol intake Current drinker of alcohol (finding) [facility] Start: 03-26-2013 End: 05-16-2022 Tobacco Comment Quit age 33 [facility] Start: 1965 Sex Assigned At Male [facility] Work Phone: Start: 11-26-2021 End: 05-16-2022 Exposure to SARS-CoV-2 (event) Not sure [facility] End: 09-25-2011 History of tobacco use Current smoker [facility] Start: 03-10-2022 End: 06-09-2023 Alcohol intake Ex-drinker (finding) [facility] Start: 03-10-2022 History SDOH Alcohol Frequency 1 [facility] Start: 03-10-2022 History SDOH Alcohol Comment quit 03/04/2022 [facility] End: 09-25-2011 History of tobacco use Cigarette Smoker [facility] Work Phone: Start: 03-10-2022 End: 02-06-2023 Alcohol Use Disorder Identification Test - Consumption [AUDIT-C] [facility] Work Phone: How often to you hav e a drink containing alcohol? Never [facility] Work Phone: Average Number of Drinks Not on file [facility] Work Phone: Start: 12-01-2020 Gender identity Identifies as male gender (finding) [facility] Work Phone: Start: 12-01-2020 Sexual orientation Heterosexual (finding) [facility] Work Phone: Clinical Notes 06-05-2015 to 10-24-2023 Telephone Encounter - Eden Macario LPN - 08/29/2023 9:22 AM ESTTelephone Encounter - Mariella Lenz RN - 08/21/2023 2:35 PM Alis Major APRN.EVA - 06/09/2023 12:44 PM EDT Note Date & Type Note Facility 10-24-2023 Note HNO ID: [id number] Author: LOBITO MCMANUS MD Service: ? Author Type: Physician Type: Progress Notes Filed: 10/24/2023 22:59 Note Text: This note was created using [employer]. Subjective Bronson Weller is a 58 year old male here for follow up. He felt his diabetes mellitus was stable. He did not bring his meter but glucoses range from 150-275. He was only taking Lantus 10 units SC at bedtime. Review of Systems Constitutional: Negative for chills and fever. HENT: Negative. Respiratory: Negative for cough, shortness of breath and wheezing. Cardiovascular: Negative for chest pain. Gastrointestinal: Negative for abdominal pain. Genitourinary: Negative for difficulty urinating. Neurological: Negative for dizziness and headaches. 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 Coronary Artery Disease Involving [place] Coronary Artery of [place] Heart Without Angina Pectoris Posttraumatic Stress Disorder Lower Urinary Tract Symptoms (Luts) 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 tamsulosin (FLOMAX) 0.4 mg Take 1 capsule by mouth once daily. 30 minutes after the same meal each day. escitalopram oxalate (LEXAPRO) 10 mg tablet Take [...] two times a day for 120 days. Cholecalciferol, Vitamin D3, 125 mcg (5,000 unit) cap Take 1 capsule by mouth once daily. magnesium oxide (MAG-OX) 400 mg (241.3 mg magnesium) tablet Take 1 tablet by mouth two times a day. losartan (COZAAR) 25 mg tablet Take 1 tablet by mouth once daily. pantoprazole DR (PROTONIX) 40 mg tablet Take 1 tablet by mouth once daily. insulin glargine (LANTUS SOLOSTAR U-100 INSULIN) 100 unit/mL (3 mL) Inject 14 Units subcutaneously daily at bedtime. ursodiol (AILYN) 250 mg tablet Take 1 tablet by mouth twice daily. Per [facility]. jxezhb-ieqypkiy-kzjcjdz (CREON) 12,000-38,000 -60,000 unit delayed release capsule [...] Drop in both eyes daily at bedtime. docosahexaenoic acid/epa (FISH OIL ORAL) Take by mouth once daily. fluticasone propionate (FLONASE NASAL) Use in the nose once daily. Multivitamin capsule Take 1 capsule by mouth once daily. nitroglycerin sublingual (NITROQUICK) 0.4 mg SL tablet Dissolve 0.4 mg under the tongue every 5 minutes as needed. SOFT LENS RINSE-STORE SOLUTION (SALINE MISC) (Patient not taking: Reported on 10/24/2023) No current facility-administered medications for this visit. Objective BP 116/70 (BP Site: Left Arm, BP Position: Sitting, BP Cuff Size: Large Adult) Pulse 84 Temp 36.9 ?C (98.5 ?F) (Temporal) Resp 18 Wt 86.2 kg (190 lb) BMI 27.26 kg/m? Physical Exam Constitutional: General: He is not in acute distress. Cardiovascular: Rate and Rhythm: Normal rate and regular rhythm. Pulmonary: Breath sounds: Normal breath sounds. Musculoske (more content not included)... [facility] 08-29-2023 Miscellaneous Notes Patient has been identified by name and date of : Yes, Provider Dr. Joel Littlejohn 08/29/23 Time 9:23 am Pharmacy phones for [...] Eden Macario LPN. documented in this encounter [facility] 08-21-2023 Miscellaneous Notes Patient has been [...] Mariella Lenz RN. documented in this encounter [facility] 06-16-2023 Miscellaneous Notes Letter mailed to pt notifying him that repeat chest xray was negative. Heidi Jimenez Ma ----- Message from Lobito Mcmanus MD sent at 06/15/2023 6:16 PM EDT ----- CXR negative. documented in this encounter [facility] 06-09-2023 Note HNO ID: [id number] Author: Alis Dunne APRN.WELLNESS TRAINER Service: ? Author Type: Nurse Practitioner Type: Progress Notes Filed: 06/12/2023 7:48 AM Note Text: CC: Patient presents with: 2 month follow up - blood sugar HPI Bronson Weller is a 58 year old male who [...] Coronary artery disease Coronary artery disease involving 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 09/25/2011 DDD (degenerative [...] 1 tablet by mouth twice daily. Per [facility]. cipqko-gbgymhgk-vviopip (CREON) 12,000-38,000 -60,000 unit delayed release capsule [...] Take 1 caps (more content not included)... [facility] 06-09-2023 History of Present illness Narrative CC: Patient presents with: 2 month follow up - blood sugar HPI Bronson Weller is a 58 year old male who [...] Coronary artery disease Coronary artery disease involving 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 09/25/2011 DDD (degenerative [...] 1 tablet by mouth twice daily. Per [facility]. qxtbct-dmjziewo-kzgyfhl (CREON) 12,000-38,000 -60,000 unit delayed release capsule [...] Alis Dunne APRN.CNP documented in this encounter [facility] 06-05-2023 Note HNO ID: [id number] Author: Puja Starr RT(R) Service: Radiology Author Type: Technologist Type: Progress Notes Filed: 06/05/2023 12:39 PM Note Text: Radiology Service Progress Note PATIENT NAME: Bronson Weller DATE OF SERVICE: June 05, 2023 TIME: [...] RT Isaiah(R) June 05, 2023 12:30 PM [facility] 05-19-2023 Note HNO ID: [id number] Author: Rasheed Benitez Service: ? Author Type: Physician Type: Progress [...] 01/25/2023 10.9 05/19/2022 6.8 11/17/2020 7.0 HBA1C, [place] (%) Date Value 01/04/2011 5.3 Hemoglobin A1C (POCT) (%) Date Value 05/04/2023 7.8 PCP: Lobito Mcmanus MD PAST MEDICAL HISTORY Diagnosis Date Acute myocardial infarction of other specified sites, episode of care unspecified 09/2011 Myocardial Infarction Alcohol abuse 05/14/2021 Alcohol induced acute pancreatitis 05/14/2021 Cervical radiculopathy 10/21/2014 Cervical spondylosis 10/21/2014 Chronic cholecystitis 01/07/2019 Coronary artery disease Coronary artery disease involving 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 09/25/2011 DDD (degenerative [...] 1 tablet by mouth twice daily. Per [facility]. bkqzgm-kmwkfswy-fnoabqx (CREON) 12,000-38,000 -60,000 unit delayed release capsule [...] nitroglycerin sublingual (NITROQ (more content not included)... [facility] 05-19-2023 Note HNO ID: [id number] Author: Kendy Corona RN Service: ? Author Type: Registered Nurse Type: Progress Notes Filed: 05/19/2023 12:50 PM Note Text: Patient presents with: Left Foot - New, Nail Check Right Foot - New, Nail Check Patient presents for thick and curved toenails to both feet. States that he has a hard time cutting his nails himself. Has a history of diabetes with neuropathy. [facility] 05-19-2023 Instructions Rasheed Benitez - 05/19/2023 10:27 AM EDT Diabetes Foot [...] (or decreased sensation in your feet) a hand violin maker should always cut your toenails. Be Careful [...] Go to your health care provider or hand violin maker to treat these conditions. documented in this encounter [facility] 05-19-2023 History of Present illness Narrative [...] 01/25/2023 10.9 05/19/2022 6.8 11/17/2020 7.0 HBA1C, [place] (%) Date Value 01/04/2011 5.3 Hemoglobin A1C (POCT) (%) Date Value 05/04/2023 7.8 PCP: Lobito Mcmanus MD PAST MEDICAL HISTORY Diagnosis Date Acute myocardial infarction of other specified sites, episode of care unspecified 09/2011 Myocardial Infarction Alcohol abuse 05/14/2021 Alcohol induced acute pancreatitis 05/14/2021 Cervical radiculopathy 10/21/2014 Cervical spondylosis 10/21/2014 Chronic cholecystitis 01/07/2019 Coronary artery disease Coronary artery disease involving 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 09/25/2011 DDD (degenerative disc disease), cervical 10/21/2014 DDD (degenerative disc disease), thoracic 10/21/2014 Elevated PSA 12/01/2020 Esophageal reflux Gastroesophageal reflux Fatty liver due to alcoholism 03/01/2022 GERD without esophagitis 12/01/2020 Glaucoma Hypertension, essential 11/17/2020 Hypertriglyceridemia 12/01/2020 Idiopathic acute pancreatitis without infection or necrosis 02/27/2022 Mental disorder Mixed hyperlipidemia Hyperlipidemia 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 epilepticus ([facility]) 12/01/2020 Posttraumatic stress disorder 03/10/2022 Preglaucoma ocular hypertension 10/05/2021 Prostate cancer ([facility]) 01/26/2021 Recurrent pancreatitis 07/13/2022 Type 2 diabetes mellitus without complication, with long-term current use of insulin ([facility]) 11/17/2020 Vitamin D deficiency 12/01/2020 Current Outpatient [...] 1 tablet by mouth twice daily. Per [facility]. kbccxz-htjjcrop-rmfibpr (CREON) 12,000-38,000 -60,000 unit delayed release capsule [...] Objective: Patient presents to clinic ambulating in [facility] Constitutional: Pt is a well developed 58 [...] complication, with long-term current use of insulin ([facility]) (primary encounter diagnosis (B35.1) Dermatophytosis, nail (M79.675) [...] to access circulation to the foot Rasheed Benitez DPM Patient presents with: Left Foot - New, Nail Check Right Foot - New, Nail Check Patient presents for thick and curved toenails to both feet. States that he has a hard time cutting his nails himself. Has a history of diabetes with neuropathy. documented in this encounter [facility] 05-04-2023 Note HNO ID: [id number] Author: Lobito Mcmanus MD Service: ? Author Type: Physician Type: Progress Notes Filed: 05/04/2023 3:05 PM Note Text: This note was created using [employer]. Subjective Bronson Weller is a 58 year old male. He [...] of Both Eyes Coronary Artery Disease Involving [place] Coronary Artery of [place] Heart Without Angina Pectoris Posttraumatic Stress Disorder [...] 1 tablet by mouth twice daily. Per [facility]. muakhn-bfguagim-utndbcn (CREON) 12,000-38,000 -60,000 unit delayed release capsule [...] Pulmonary: Effort: No (more content not included)... [facility] 05-01-2023 Miscellaneous Notes Patient has been identified [...] 01/25/2023 10.9 05/19/2022 6.8 11/17/2020 7.0 HBA1C, [place] (%) Date Value 01/04/2011 5.3 Cholesterol: HDL [...] Cari Moss RN documented in this encounter [facility] 02-21-2023 Note HNO ID: [id number] Author: Thiago Galicia MD Service: ? Author [...] others. I have seen and examined Bronson Weller. I have discussed the case and the management of this patient's care with the Resident/Fellow, if applicable. I also have reviewed and agree with the assessment and plan as stated above and agree with all of its relevant components. Thiago Galicia MD February 21, 2023 10:06 AM [facility] 02-21-2023 History of Present illness Narrative Assessment [...] others. I have seen and examined Bronson Weller. I have discussed the case and the management of this patient's care with the Resident/Fellow, if applicable. I also have reviewed and agree with the assessment and plan as stated above and agree with all of its relevant components. Thiago Galicia MD February 21, 2023 10:06 AM documented in this encounter [facility] 02-06-2023 Note HNO ID: [id number] Author: Lobito Mcmanus MD Service: ? Author Type: Physician Type: Progress Notes Filed: 02/06/2023 1:55 PM Note Text: This note was created using [employer]. Subjective Bronson Weller is a 57 year old male. He [...] of Both Eyes Coronary Artery Disease Involving [place] Coronary Artery of [place] Heart Without Angina Pectoris Posttraumatic Stress Disorder [...] 1 tablet by mouth twice daily. Per [facility]. trxkig-ygerlzqy-fxoqgnv (CREON) 12,000-38,000 -60,000 unit delayed release capsule [...] Adult) Pulse 109 (more content not included)... [facility] 02-06-2023 Instructions Lobito Mcmanus MD - 02/06/2023 1:42 PM EDT TAKE EXTRA 10 UNITS OF LANTUS WHEN YOU GET HOME. STARTING TOMORROW, TAKE LANTUS 14 UNITS. EVERY 3 DAYS INCREASE OR ADD 2 UNITS UNTIL MOST OF YOUR FASTING GLUCOSE ARE 140 OR LESS. THEN STOP AT THAT LANTUS INSULIN DOSE. documented in this encounter [facility] 02-06-2023 History of Present illness Narrative This note was created using [employer]. Subjective Bronson Weller is a 57 year old male. He [...] of Both Eyes Coronary Artery Disease Involving [place] Coronary Artery of [place] Heart Without Angina Pectoris Posttraumatic Stress Disorder [...] 1 tablet by mouth twice daily. Per [facility]. jltjmg-nzxlpprv-vjueups (CREON) 12,000-38,000 -60,000 unit delayed release capsule [...] - ICD9: 787.02, ICD10: R11.0 (primary diagnosis) [place] diet. 2. Hypertension, essential - ICD9: 401.9, [...] Lobito Mcmanus MD documented in this encounter [facility] 01-25-2023 Miscellaneous Notes Noted. Estela from [facility] to report pt was seen at [facility] ED 01/21/23 for chest pain. She reports pt had a neg CT scan. Records in [facility] Prema Springer LPN documented in this encounter [facility] 01-16-2023 Miscellaneous Notes Patient has been [...] 05/21/2021 39 Please advise. Thank you. Kendy Amador RN documented in this encounter [facility] 12-29-2022 Miscellaneous Notes Noted. [facility] ocular care aide, phoned to let pcp know, patient was seen in [facility] ER yesterday and treated for seizure, stomach/side pain. documented in this encounter [facility] 12-20-2022 Miscellaneous Notes Patient notified that [...] request. No need to notify patient. Gin Sedinger [employer] documented in this encounter [facility] 12-16-2022 Miscellaneous Notes Patient notified.Arcelia Arias LPN Negative for COVID and flu documented in this encounter [facility] 12-15-2022 Note HNO ID: [id number] Author: Emmanuel Fritz MD Service: ? Author [...] Coronary artery disease Coronary artery disease involving 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 09/25/2011 DDD (degenerative [...] 1 tablet by mouth twice daily. Per [facility]. lohlgh-xmqqvnko-stxxetr (CREON) 12,000-38,000 -60,000 unit delayed release capsule [...] Bilateral cerumen impact (more content not included)... [facility] 12-15-2022 History of Present illness Narrative Patient [...] Coronary artery disease Coronary artery disease involving 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 09/25/2011 DDD (degenerative disc disease), cervical 10/21/2014 DDD (degenerative disc disease), thoracic 10/21/2014 Elevated PSA 12/01/2020 Esophageal reflux Gastroesophageal reflux Fatty liver due to alcoholism 03/01/2022 GERD without esophagitis 12/01/2020 Glaucoma Hypertension, essential 11/17/2020 Hypertriglyceridemia 12/01/2020 Idiopathic acute pancreatitis without infection or necrosis 02/27/2022 Mental disorder Mixed hyperlipidemia Hyperlipidemia 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 epilepticus ([facility]) 12/01/2020 Posttraumatic stress disorder 03/10/2022 Preglaucoma ocular hypertension 10/05/2021 Prostate cancer ([facility]) 01/26/2021 Recurrent pancreatitis 07/13/2022 Type 2 diabetes mellitus without complication, with long-term current use of insulin ([facility]) 11/17/2020 Vitamin D deficiency 12/01/2020 MEDICATIONS: Current [...] 1 tablet by mouth twice daily. Per [facility]. qnkciv-llmyodzt-fbyfokt (CREON) 12,000-38,000 -60,000 unit delayed release capsule [...] Emmanuel Fritz MD documented in this encounter [facility] 12-12-2022 Miscellaneous Notes Patient has been identified by name and date of : Yes, Provider Mcmanus Date 12-12-22 Time 10:59 am Pharmacy phones [...] Tonio Jackson RN documented in this encounter [facility] 12-09-2022 Note HNO ID: [id number] Author: Lobito Mcmanus MD Service: ? Author Type: Physician Type: Progress Notes Filed: 12/09/2022 12:44 PM Note Text: This note was created using [employer]. Subjective Transitional Care Management Progress Note The patients TCM visit was performed within the 7 days of discharge. Patient's Date of discharge: 12/02/22 Date of initial coordinator contact after discharge: 12/06/22 Discharge diagnosis: acute on chronic pancreatitis. Medication review completed Yes Lobito Mcmanus MD Provider Documentation: In follow-up of hospitalization, Bronson Weller is a 57 year old male with the chief complaint of transition of care. I have reviewed the patient?s last hospital course including diagnostic testing performed during this hospitalization, their discharge medications, and my assessment and plan with the patient and any family members present at today?s visit. Bronson Weller is a 57 year old male admitted [...] of Both Eyes Coronary Artery Disease Involving [place] Coronary Artery of [place] Heart Without Angina Pectoris Posttraumatic Stress Disorder [...] use: Never Current Outpatient Medications Medication Sig ayijcs-memszfjb-pzfydxk (CREON) 12,000-38,000 -60,000 unit delayed release capsule [...] daily at bedtime. (more content not included)... [facility] 12-09-2022 History of Present illness Narrative This note was created using [employer]. Subjective Transitional Care Management Progress Note The patients TCM visit was performed within the 7 days of discharge. Patient's Date of discharge: 12/02/22 Date of initial coordinator contact after discharge: 12/06/22 Discharge diagnosis: acute on chronic pancreatitis. Medication review completed Yes Lobito Mcmanus MD Provider Documentation: In follow-up of hospitalization, Bronson Weller is a 57 year old male with the chief complaint of transition of care. I have reviewed the patient s last hospital course including diagnostic testing performed during this hospitalization, their discharge medications, and my assessment and plan with the patient and any family members present at today s visit. Bronosn Weller is a 57 year old male admitted [...] of Both Eyes Coronary Artery Disease Involving [place] Coronary Artery of [place] Heart Without Angina Pectoris Posttraumatic Stress Disorder [...] use: Never Current Outpatient Medications Medication Sig srgklh-itrskvyx-tuefdxz (CREON) 12,000-38,000 -60,000 unit delayed release capsule [...] 1 tablet by mouth twice daily. Per [facility]. No current facility-administered medications for this [...] Lobito Mcmanus MD documented in this encounter [facility] 12-06-2022 Note HNO ID: [id number] Author: Adore Perry LPN Service: ? Author Type: ? Type: Progress Notes Filed: 12/08/2022 8:34 AM Note Text: Message left again for return call from pt. [facility] 12-06-2022 History of Present illness Narrative Message left again for return call from pt. Message left for pt to return call to a nurse to complete TCM note. documented in this encounter [facility] 12-06-2022 Note HNO ID: [id number] Author: Adore Perry LPN Service: ? Author Type: ? Type: Progress Notes Filed: 12/08/2022 8:34 AM Note Text: Message left for pt to return call to a nurse to complete TCM note. [facility] 12-06-2022 Note Patient Outreach (IN TMWS) BRONSON WELLER ([id number]) 1965 M Date Time Provider Department 12/06/22 LOBITO MCMANUS During your visit today, we recorded the following information about you: Adore Perry LPN 12/08/2022 8:34 AM Signed Message left for pt to return call to a nurse to complete TCM note. Adore Perry LPN 12/08/2022 8:34 AM Signed Message left again [...] Date Reviewed: 11/07/2022 Reviewed by: Alis Dunne APRN.WELLNESS TRAINER - Fully Assessed Reason for Visit: Transition Of Care [4074] Prescriptions as of 12/08/2022 - drqaln-tntozmmg-unejhlw (CREON) 12,000-38,000 -60,000 unit delayed release capsule [...] eyes [H47.233] 10/05/2021 Coronary artery disease involving kaibab santana*09/25/2011 Posttraumatic stress disorder [F43.10] 03/10/2022 Lower urinary tract symptoms (LUTS) [R39.9] 10/15/2021 Alcohol-induced chronic pancreatitis (HCC) [K86*07/13/2022 Encounter Status:Closed by ADORE PERRY LPN on 12/08/22 [facility] 12-01-2022 Miscellaneous Notes Spoke to [facility], they did receive RX and will contact Patient when it is ready for pickup. Rhona Samayoa LPN Patient's request for medication is as follows Requested Prescriptions Signed Prescriptions Disp Refills reuved-eopxvwbx-mumqexg (CREON) 12,000-38,000 -60,000 unit delayed release capsule 90 capsule 5 Sig: Take 1 capsule by mouth three times daily with meals. Authorizing Provider: LOBITO MCMANUS Order entered - please phone pharmacy and notify patient. Lobito Mcmanus MD [place] pharmacy reports patient was prescribed Creon 62140 units 1 capsule 3 times day before meals and/or snacks, #90 with refills, in August, by a hospital. Patient needs refill. Asking if pcp would send refill for this medication? It is not on patient's current med list. documented in this encounter [facility] 11-14-2022 Miscellaneous Notes Patient has been [...] Mariella Lenz RN documented in this encounter [facility] 11-07-2022 Note HNO ID: [id number] Author: Alis Dunne APRN.WELLNESS TRAINER Service: ? Author Type: Nurse Practitioner Type: Progress Notes Filed: 11/08/2022 8:09 AM Note Text: CC: Patient presents with: ED Follow-up HPI Bronson Weller is a 57 year old male who presents today hospital follow-up. Patient was admitted to [facility] from -1 to 2-2 for acute on chronic pancreatitis. [...] He is already established with Dr. Rosalio RIZIV and has routine follow-up this month. Denies [...] Coronary artery disease Coronary artery disease involving 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 09/25/2011 DDD (degenerative [...] minutes as neede (more content not included)... [facility] 11-07-2022 History of Present illness Narrative CC: Patient presents with: ED Follow-up GLYNN Bronson Weller is a 57 year old male who presents today hospital follow-up. Patient was admitted to [facility] from 21 to 2-2 for acute on chronic pancreatitis. [...] Coronary artery disease Coronary artery disease involving 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 09/25/2011 DDD (degenerative [...] and active. DATA REVIEWED: Outside chart from [facility] admission in Care Everywhere reviewed. ASSESSMENT/PLAN: [...] Alis Dunne APRN.CNP documented in this encounter [facility] 10-25-2022 Miscellaneous Notes Noted. Souleymane Kelly APRN.ANMOL VELASQUEZ Estela with [employer] calling stating patient was admitted to [facility] on 02/27 for Pancreatitis. documented in this encounter [facility] 10-17-2022 Miscellaneous Notes Patient has been [...] Beth Macario Pss documented in this encounter [facility] 09-20-2022 Miscellaneous Notes Patient has been [...] Tonio Jackson RN documented in this encounter [facility] 08-19-2022 History of Present illness Narrative This note was created using [employer]. Subjective Bronson Weller is a 57 year old male here [...] of Both Eyes Coronary Artery Disease Involving [place] Coronary Artery of [place] Heart Without Angina Pectoris Posttraumatic Stress Disorder [...] Lobito Mcmanus MD documented in this encounter [facility] 06-29-2022 Miscellaneous Notes Patient has been [...] Caroline Macias Pss documented in this encounter [facility] 06-02-2022 Miscellaneous Notes Patient has been [...] Cari Moss RN documented in this encounter [facility] 05-31-2022 Miscellaneous Notes Patient notified, verbalized understanding. ----- Message from Lobito Mcmanus MD sent at 05/28/2022 2:31 PM EDT ----- Diabetes needs improvement. Fasting glucose elevated. Recommend increasing Lantus to 14 units at bedtime. Rest of labs okay. documented in this encounter [facility] 05-23-2022 Miscellaneous Notes Patient advised PSA is down. Patient agreed. Lauren Duncan Cma ----- Message from Trini Williamson DO sent at 05/22/2022 5:39 PM EDT ----- PSA is down documented in this encounter [facility] 05-16-2022 Instructions Lobito Mcmanus MD - 05/16/2022 4:29 PM EDT FASTING BLOOD WORK. documented in this encounter [facility] 05-16-2022 History of Present illness Narrative This note was created using [employer]. Subjective Bronson Weller is a 57 year old male. He had no new concerns. He needed refills. He had not done his fasting labs here. He was on the wait list for psychiatry care at the [facility]. He sees Dr. Williamson for urology, Dr. Burnett, [facility]; Abimael Sanchez CNP for cardiology, [facility]; Dr. Leroy Santamaria for [facility]; Dr. Bojorquez for ophthalmology. Review of [...] of Both Eyes Coronary Artery Disease Involving [place] Coronary Artery of [place] Heart Without Angina Pectoris Posttraumatic Stress Disorder [...] complication, with long-term current use of insulin ([facility]) - ICD9: 250.00, V58.67, ICD10: E11.9, Z79.4 (primary diagnosis) The [place] to [place]. - Continue current medications - METFORMIN 500 [...] 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 epilepticus, unspecified epilepsy type ([facility]) - ICD9: 345.90, ICD10: G40.909 Per [place] [facility]. 5. Hypertension, essential - ICD9: 401.9, [...] MG CAPSULE 10. Coronary artery disease involving 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 - ICD9: 414.01, ICD10: I25.10 Stable. - ASPIRIN 81 MG TABLET,DELAYED RELEASE 11. Posttraumatic stress disorder - ICD9: 309.81, ICD10: F43.10 Refilled. - AMITRIPTYLINE 25 MG TABLET Lobito Mcmanus MD documented in this encounter [facility] 05-05-2022 Miscellaneous Notes Patient has been [...] you. Rhona Samayoa LPN Pharmacy verified in Epic Patient has been identified by name and [...] Toya Dickerson Pss documented in this encounter [facility] 04-08-2022 Miscellaneous Notes Patient has been [...] Sveta Turcios Pss documented in this encounter [facility] 03-11-2022 Miscellaneous Notes BEHAVIORAL HEALTH SOCIAL WORK CONSULT NOTE Service Date: March 11, 2022 Patient was identified by name and Patient: Bronson Rothman [facility] [id number] (home) [phone] (cell) PCP: Lobito Mcmanus MD [id number] [facility] [address] Patient identified for [facility] from: PCP (Dr Mcmanus) Reason for referral: [facility] Assessment (not sure of diag,Posttraumatic stress disorder) [facility] encounter type: Telephone Encounter Assessment: [facility] received a consult from Dr Mcmanus, for assessment not sure of diag PTSD [facility] reviewed Pt's chart/insurance SW contacted Pt -stated he is ok -denies current SI/HI -reported he was drinking, had a gun and called the police -was transferred to [place] and admitted to psych -not sure where he was referred to for outpt tx -stated he received a ltr from them stating they were full [facility] suggested the [facility] -Pt stated he is ok - I will contact you if I need anything -the police took my gun so it is not in the house -inquired if Pt was still drinking -it is unclear -talked of staff at [facility] wanting to kick him out however does not know the reason why -they stated he does not qualify -states he would ok if others ([facility]) would leave him alone -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 [facility] offered to send ltr with contact info in case Pt reconsiders -Pt agreed -Pt is not active with [facility] - sent the following resources in a ltr: [facility] [address] [phone] *counseling, psychiatry and case management [facility] [address] [place] [address] Crisis line [phone] Pt stated he will call if he [...] minutes DINESH Jamil documented in this encounter [facility] 03-10-2022 History of Present illness Narrative This note was created using [employer]. Subjective Patient presents with: Hospital F/U: pancreatitis Establish Care: from [facility] Bronson Weller is a 56 year old male. He was admitted for acute pancreatitis 02/27-03/04. He had to go back to the ER for pain medication 03/06. His abdominal pain was much better, and things were getting back to normal. He stopped alcohol consumption. He was admitted for suicidal ideation in [place] in November, and diagnosed with PTSD. He was having flashbacks of seeing a lot of from when he worked for the [employer]. He was started on amitriptyline and escitalopram. [...] Coronary artery disease Coronary artery disease involving 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 09/25/2011 DDD (degenerative [...] HEALTH ADULT 2. Coronary artery disease involving 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 - ICD9: 414.01, [...] - HGB A1C - ALBUMIN/CREAT RATIO RND FERCHO Mcmanus MD documented in this encounter [facility] 03-09-2022 Miscellaneous Notes Pharmacy called requesting the following refill. Pending Prescriptions Disp Refills TAMSULOSIN 0.4 MG CAPSULE 30 capsule 3 Sig: Take 1 capsule by mouth once daily. 30 minutes after the same meal each day. DANIELLE: No Patient last appointment: Visit date not found Patient Phone numbers: [phone] (home) Request is for script(s) to be escript to pharmacy. Lauren Duncan Cma documented in this encounter [facility] 03-09-2022 Miscellaneous Notes Patient has been identified by name and date of : Yes Pharmacy phones for refill(s): Pending Prescriptions Disp Refills METFORMIN 500 MG TABLET 180 tablet 0 Sig: Take 1 tablet by mouth twice daily with meals. DANIELLE: No LORATADINE 10 MG TABLET 90 tablet 0 Sig: Take 1 tablet by mouth once daily. DAINELLE: No PRAVASTATIN 40 MG TABLET 90 tablet [...] Eden Macario LPN documented in this encounter [facility] 01-13-2022 Miscellaneous Notes The following approved medication requests have been transmitted electronically. Pending Prescriptions Disp Refills MAGNESIUM OXIDE 400 MG (241.3 MG MAGNESIUM) TABLET 56 tablet 0 Sig: TAKE 1 TABLET BY MOUTH TWICE A DAY DANIELLE: Yes GABAPENTIN 300 MG CAPSULE 180 capsule 0 Sig: Take 1 capsule by mouth twice daily for 90 days. DANIELLE: No Souleymane Kelly APRN.ANMOL VELASQUEZ Patient phones requesting refills as follows: Pending Prescriptions Disp Refills MAGNESIUM OXIDE 400 MG (241.3 MG MAGNESIUM) TABLET 56 tablet 0 Sig: TAKE 1 TABLET BY MOUTH TWICE A DAY DANIELLE: Yes GABAPENTIN 300 MG CAPSULE 56 capsule Sig: TAKE 1 CAPSULE BY MOUTH TWICE A DAY ADNIELLE: Yes LEV-05/21/21 Labs-05/27/21 NOV-none Please review and advise. Kay Renae LPN documented in this encounter [facility] 12-17-2021 Miscellaneous Notes Addended by: SOULEYMANE [...] MOUTH TWICE A DAY DANIELLE: Yes LEV-05/21/21 Labs-05/21/21 NOV-none Please review and advise. Kay Renae LPN documented in this encounter [facility] documented as of this encounter (statuses as of 08/21/2022) [facility]01-11-2022 History of Past illness Narrative* Problem Noted Date Resolved Date Type 2 diabetes mellitus without retinopathy 07/202208/16/2022 Elevated PSA 12/01/2020 05/16/2022 NO SHOW 06/05/2015 03/10/2022 Right hip pain 01/19/2015 05/16/2022 DDD (degenerative disc disease), thoracic 201405/16/2022 Cervical strain 10/21/2014 03/10/2022 DDD (degenerative disc disease), cervical 201403/10/2022 documented as of this encounter (statuses as of 09/25/2022) [facility] History of Past illness Narrative* Problem Noted Date Resolved Date Type 2 diabetes mellitus without retinopathy 07/202208/16/2022 Elevated PSA 12/01/2020 05/16/2022 NO SHOW 06/05/2015 03/10/2022 Right hip pain 01/19/2015 05/16/2022 DDD (degenerative disc disease), thoracic 201405/16/2022 Cervical strain 10/21/2014 03/10/2022 DDD (degenerative disc disease), cervical 201403/10/2022 documented as of this encounter (statuses as of 10/19/2022) [facility] History of Past illness Narrative* Problem Noted Date Resolved Date Type 2 diabetes mellitus without retinopathy 07/202208/16/2022 Elevated PSA 12/01/2020 05/16/2022 NO SHOW 06/05/2015 03/10/2022 Right hip pain 01/19/2015 05/16/2022 DDD (degenerative disc disease), thoracic 201405/16/2022 Cervical strain 10/21/2014 03/10/2022 DDD (degenerative disc disease), cervical 201403/10/2022 documented as of this encounter (statuses as of 10/25/2022) [facility] History of Past illness Narrative* Problem Noted Date Resolved Date Type 2 diabetes mellitus without retinopathy 07/202208/16/2022 Elevated PSA 12/01/2020 05/16/2022 NO SHOW 06/05/2015 03/10/2022 Right hip pain 01/19/2015 05/16/2022 DDD (degenerative disc disease), thoracic 201405/16/2022 Cervical strain 10/21/2014 03/10/2022 DDD (degenerative disc disease), cervical 201403/10/2022 documented as of this encounter (statuses as of 11/08/2022) [facility] History of Past illness Narrative* Problem Noted Date Resolved Date Type 2 diabetes mellitus without retinopathy 07/202208/16/2022 Elevated PSA 12/01/2020 05/16/2022 NO SHOW 06/05/2015 03/10/2022 Right hip pain 01/19/2015 05/16/2022 DDD (degenerative disc disease), thoracic 201405/16/2022 Cervical strain 10/21/2014 03/10/2022 DDD (degenerative disc disease), cervical 201403/10/2022 documented as of this encounter (statuses as of 11/14/2022) [facility] History of Past illness Narrative* Problem Noted Date Resolved Date Type 2 diabetes mellitus without retinopathy 07/202208/16/2022 Elevated PSA 12/01/2020 05/16/2022 NO SHOW 06/05/2015 03/10/2022 Right hip pain 01/19/2015 05/16/2022 DDD (degenerative disc disease), thoracic 201405/16/2022 Cervical strain 10/21/2014 03/10/2022 DDD (degenerative disc disease), cervical 201403/10/2022 documented as of this encounter (statuses as of 12/01/2022) [facility] History of Past illness Narrative* Problem Noted Date Resolved Date Type 2 diabetes mellitus without retinopathy 07/202208/16/2022 Elevated PSA 12/01/2020 05/16/2022 NO SHOW 06/05/2015 03/10/2022 Right hip pain 01/19/2015 05/16/2022 DDD (degenerative disc disease), thoracic 201405/16/2022 Cervical strain 10/21/2014 03/10/2022 DDD (degenerative disc disease), cervical 201403/10/2022 documented as of this encounter (statuses as of 12/08/2022) [facility] History of Past illness Narrative* Problem Noted Date Resolved Date Type 2 diabetes mellitus without retinopathy 07/202208/16/2022 Elevated PSA 12/01/2020 05/16/2022 NO SHOW 06/05/2015 03/10/2022 Right hip pain 01/19/2015 05/16/2022 DDD (degenerative disc disease), thoracic 201405/16/2022 Cervical strain 10/21/2014 03/10/2022 DDD (degenerative disc disease), cervical 201403/10/2022 documented as of this encounter (statuses as of 12/09/2022) [facility] History of Past illness Narrative* Problem Noted Date Resolved Date Type 2 diabetes mellitus without retinopathy 07/202208/16/2022 Elevated PSA 12/01/2020 05/16/2022 NO SHOW 06/05/2015 03/10/2022 Right hip pain 01/19/2015 05/16/2022 DDD (degenerative disc disease), thoracic 201405/16/2022 Cervical strain 10/21/2014 03/10/2022 DDD (degenerative disc disease), cervical 201403/10/2022 documented as of this encounter (statuses as of 12/13/2022) [facility] History of Past illness Narrative* Problem Noted Date Resolved Date Type 2 diabetes mellitus without retinopathy 07/202208/16/2022 Elevated PSA 12/01/2020 05/16/2022 NO SHOW 06/05/2015 03/10/2022 Right hip pain 01/19/2015 05/16/2022 DDD (degenerative disc disease), thoracic 201405/16/2022 Cervical strain 10/21/2014 03/10/2022 DDD (degenerative disc disease), cervical 201403/10/2022 documented as of this encounter (statuses as of 12/15/2022) [facility] History of Past illness Narrative* Problem Noted Date Resolved Date Type 2 diabetes mellitus without retinopathy 07/202208/16/2022 Elevated PSA 12/01/2020 05/16/2022 NO SHOW 06/05/2015 03/10/2022 Right hip pain 01/19/2015 05/16/2022 DDD (degenerative disc disease), thoracic 201405/16/2022 Cervical strain 10/21/2014 03/10/2022 DDD (degenerative disc disease), cervical 201403/10/2022 documented as of this encounter (statuses as of 12/16/2022) [facility] History of Past illness Narrative* Problem Noted Date Resolved Date Type 2 diabetes mellitus without retinopathy 07/202208/16/2022 Elevated PSA 12/01/2020 05/16/2022 NO SHOW 06/05/2015 03/10/2022 Right hip pain 01/19/2015 05/16/2022 DDD (degenerative disc disease), thoracic 201405/16/2022 Cervical strain 10/21/2014 03/10/2022 DDD (degenerative disc disease), cervical 201403/10/2022 documented as of this encounter (statuses as of 12/20/2022) [facility] History of Past illness Narrative* Problem Noted Date Resolved Date Type 2 diabetes mellitus without retinopathy 07/202208/16/2022 Elevated PSA 12/01/2020 05/16/2022 NO SHOW 06/05/2015 03/10/2022 Right hip pain 01/19/2015 05/16/2022 DDD (degenerative disc disease), thoracic 201405/16/2022 Cervical strain 10/21/2014 03/10/2022 DDD (degenerative disc disease), cervical 201403/10/2022 documented as of this encounter (statuses as of 12/29/2022) [facility] History of Past illness Narrative* Problem Noted Date Resolved Date Type 2 diabetes mellitus without retinopathy 07/202208/16/2022 Elevated PSA 12/01/2020 05/16/2022 NO SHOW 06/05/2015 03/10/2022 Right hip pain 01/19/2015 05/16/2022 DDD (degenerative disc disease), thoracic 201405/16/2022 Cervical strain 10/21/2014 03/10/2022 DDD (degenerative disc disease), cervical 201403/10/2022 documented as of this encounter (statuses as of 01/17/2023) [facility] History of Past illness Narrative* Problem Noted Date Resolved Date Type 2 diabetes mellitus without retinopathy 07/202208/16/2022 Elevated PSA 12/01/2020 05/16/2022 NO SHOW 06/05/2015 03/10/2022 Right hip pain 01/19/2015 05/16/2022 DDD (degenerative disc disease), thoracic 201405/16/2022 Cervical strain 10/21/2014 03/10/2022 DDD (degenerative disc disease), cervical 201403/10/2022 documented as of this encounter (statuses as of 01/25/2023) [facility] History of Past illness Narrative* Problem Noted Date Resolved Date Type 2 diabetes mellitus without retinopathy 07/202208/16/2022 Elevated PSA 12/01/2020 05/16/2022 NO SHOW 06/05/2015 03/10/2022 Right hip pain 01/19/2015 05/16/2022 DDD (degenerative disc disease), thoracic 201405/16/2022 Cervical strain 10/21/2014 03/10/2022 DDD (degenerative disc disease), cervical 201403/10/2022 documented as of this encounter (statuses as of 02/06/2023) [facility] History of Past illness Narrative* Problem Noted Date Resolved Date Type 2 diabetes mellitus without retinopathy 07/202208/16/2022 Elevated PSA 12/01/2020 05/16/2022 NO SHOW 06/05/2015 03/10/2022 Right hip pain 01/19/2015 05/16/2022 DDD (degenerative disc disease), thoracic 201405/16/2022 Cervical strain 10/21/2014 03/10/2022 DDD (degenerative disc disease), cervical 201403/10/2022 documented as of this encounter (statuses as of 02/21/2023) [facility] History of Past illness Narrative* Problem Noted Date Diagnosed Date Resolved Date Type 2 diabetes mellitus without retinopathy 08/16/2022 Elevated PSA 12/01/2020 05/16/2022 NO SHOW 06/05/2015 03/10/2022 Right hip pain 01/19/2015 05/16/2022 DDD (degenerative disc disease), thoracic 10/21/2014 05/16/2022 Cervical strain 10/21/2014 03/10/2022 DDD (degenerative disc disease), cervical 10/21/2014 03/10/2022 documented as of this encounter (statuses as of 05/02/2023) [facility] History of Past illness Narrative* Problem Noted Date Diagnosed Date Resolved Date Type 2 diabetes mellitus without retinopathy 2 08/16/2022 Elevated PSA 12/01/2020 05/16/2022 NO SHOW 06/05/2015 03/10/2022 Right hip pain 01/19/2015 05/16/2022 DDD (degenerative disc disease), thoracic 10/21/2014 05/16/2022 Cervical strain 10/21/2014 03/10/2022 DDD (degenerative disc disease), cervical 10/21/2014 03/10/2022 documented as of this encounter (statuses as of 05/19/2023) [facility] History of Past illness Narrative* Problem Noted Date Diagnosed Date Resolved Date Type 2 diabetes mellitus without retinopathy 2 08/16/2022 Elevated PSA 12/01/2020 05/16/2022 NO SHOW 06/05/2015 03/10/2022 Right hip pain 01/19/2015 05/16/2022 DDD (degenerative disc disease), thoracic 10/21/2014 05/16/2022 Cervical strain 10/21/2014 03/10/2022 DDD (degenerative disc disease), cervical 10/21/2014 03/10/2022 documented as of this encounter (statuses as of 06/12/2023) [facility] History of Past illness Narrative* Problem Noted Date Diagnosed Date Resolved Date Type 2 diabetes mellitus without retinopathy 2 08/16/2022 Elevated PSA 12/01/2020 05/16/2022 NO SHOW 06/05/2015 03/10/2022 Right hip pain 01/19/2015 05/16/2022 DDD (degenerative disc disease), thoracic 10/21/2014 05/16/2022 Cervical strain 10/21/2014 03/10/2022 DDD (degenerative disc disease), cervical 10/21/2014 03/10/2022 documented as of this encounter (statuses as of 06/16/2023) [facility] History of Past illness Narrative* Problem Noted Date Diagnosed Date Resolved Date Type 2 diabetes mellitus without retinopathy 2 08/16/2022 Elevated PSA 12/01/2020 05/16/2022 NO SHOW 06/05/2015 03/10/2022 Right hip pain 01/19/2015 05/16/2022 DDD (degenerative disc disease), thoracic 10/21/2014 05/16/2022 Cervical strain 10/21/2014 03/10/2022 DDD (degenerative disc disease), cervical 10/21/2014 03/10/2022 documented as of this encounter (statuses as of 08/22/2023) [facility] History of Past illness Narrative* Problem Noted Date Diagnosed Date Resolved Date Type 2 diabetes mellitus without retinopathy 08/16/2022 Elevated PSA 12/01/2020 05/16/2022 NO SHOW 06/05/2015 03/10/2022 Right hip pain 01/19/2015 05/16/2022 DDD (degenerative disc disease), thoracic 10/21/2014 05/16/2022 Cervical strain 10/21/2014 03/10/2022 DDD (degenerative disc disease), cervical 10/21/2014 03/10/2022 documented as of this encounter (statuses as of 08/30/2023) [facility]10-12-2021 NoteHNO ID: [id number] Author: Trini Williamson, DO Service: ? Author Type: Physician Type: Progress Notes Filed: 07/06/2021 4:05 PM Note Text: ?? [facility] LOCATION: [address] [place] [address] ESTABLISHED PATIENT PATIENT INFO: Bronson Weller 56 year old Chief Complaint: Prostate Cancer [...] right lateral mid, biopsy ? Prostatic adenocarcinoma, Alen score 3+3 = 6 (grade group 1), [...] 61.2 Lymph% (%) Date Value 05/21/2021 28.6 Dewey% (%) Date Value 05/21/2021 8.0 Eosin% (%) Date Value 05/21/2021 1.7 Baso% (%) Date Value 05/21/2021 0.5 Abs Neut (ANC) (k/uL) Date Value 05/21/2021 6.76 Abs Dewey (k/uL) Date Value 05/21/2021 0.89 (H) Abs [...] for 90 days. naproxe (more content not included)...[facility]10-08-2021 NoteHNO ID: [id number] Author: RT Noé(R) Service: Radiology Author Type: Lathe Turner Type: Progress Notes Filed: 07/02/2021 9:30 AM [...] Prostate SIGNATURE: RT Noé(R) PATIENT NAME: Bronson Weller DATE: July 02, 2021 TIME: 9:29 [facility]03-09-[facility]21 History of Past illness Narrative* Problem Noted Date Resolved Date Elevated PSA 12/01/2020 05/16/2022 NO SHOW 06/05/2015 03/10/2022 Right hip pain 01/19/2015 05/16/2022 DDD (degenerative disc disease), thoracic 201405/16/2022 Cervical strain 10/21/2014 03/10/2022 DDD (degenerative disc disease), cervical 201403/10/2022 documented as of this encounter (statuses as of 05/16/2022) [facility] History of Past illness Narrative* Problem Noted Date Resolved Date Elevated PSA 12/01/2020 05/16/2022 NO SHOW 06/05/2015 03/10/2022 Right hip pain 01/19/2015 05/16/2022 DDD (degenerative disc disease), thoracic 201405/16/2022 Cervical strain 10/21/2014 03/10/2022 DDD (degenerative disc disease), cervical 201403/10/2022 documented as of this encounter (statuses as of 05/23/2022) [facility] History of Past illness Narrative* Problem Noted Date Resolved Date Elevated PSA 12/01/2020 05/16/2022 NO SHOW 06/05/2015 03/10/2022 Right hip pain 01/19/2015 05/16/2022 DDD (degenerative disc disease), thoracic 201405/16/2022 Cervical strain 10/21/2014 03/10/2022 DDD (degenerative disc disease), cervical 201403/10/2022 documented as of this encounter (statuses as of 05/31/2022) [facility] History of Past illness Narrative* Problem Noted Date Resolved Date Elevated PSA 12/01/2020 05/16/2022 NO SHOW 06/05/2015 03/10/2022 Right hip pain 01/19/2015 05/16/2022 DDD (degenerative disc disease), thoracic 201405/16/2022 Cervical strain 10/21/2014 03/10/2022 DDD (degenerative disc disease), cervical 201403/10/2022 documented as of this encounter (statuses as of 06/03/2022) [facility] History of Past illness Narrative* Problem Noted Date Resolved Date Elevated PSA 12/01/2020 05/16/2022 NO SHOW 06/05/2015 03/10/2022 Right hip pain 01/19/2015 05/16/2022 DDD (degenerative disc disease), thoracic 201405/16/2022 Cervical strain 10/21/2014 03/10/2022 DDD (degenerative disc disease), cervical 201403/10/2022 documented as of this encounter (statuses as of 06/29/2022) [facility] History of Past illness Narrative* Problem Noted Date Resolved Date NO SHOW 06/05/2015 03/10/2022 Cervical strain 10/21/2014 03/10/2022 DDD (degenerative disc disease), cervical 201403/10/2022 documented as of this encounter (statuses as of 03/10/2022) [facility] History of Past illness Narrative* Problem Noted Date Resolved Date NO SHOW 06/05/2015 03/10/2022 Cervical strain 10/21/2014 03/10/2022 DDD (degenerative disc disease), cervical 201403/10/2022 documented as of this encounter (statuses as of 03/11/2022) [facility] History of Past illness Narrative* Problem Noted Date Resolved Date NO SHOW 06/05/2015 03/10/2022 Cervical strain 10/21/2014 03/10/2022 DDD (degenerative disc disease), cervical 201403/10/2022 documented as of this encounter (statuses as of 04/08/2022) [facility] History of Past illness Narrative* Problem Noted Date Resolved Date NO SHOW 06/05/2015 03/10/2022 Cervical strain 10/21/2014 03/10/2022 DDD (degenerative disc disease), cervical 201403/10/2022 documented as of this encounter (statuses as of 05/06/2022) [facility] 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 epilepticus, unspecified epilepsy type (HCC) [facility] 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 epilepticus, unspecified epilepsy type (HCC) [facility] Type 2 diabetes mellitus without complication, with long-term current use of insulin (HCC) Seasonal allergic rhinitis due to pollen Mixed hyperlipidemia 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 epilepticus, unspecified epilepsy type (HCC) Hypertension, essential Unspecified essential hypertension GERD without esophagitis Esophageal reflux Vitamin D deficiency Unspecified vitamin D deficiency [facility] Diagnosis Posttraumatic stress disorder- Primary Coronary artery disease involving 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 Mixed hyperlipidemia Type 2 diabetes mellitus without complication, with long-term current use of insulin (HCC) [facility] Diagnosis 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 epilepticus, unspecified epilepsy type (HCC) Hypertension, essential Unspecified essential hypertension [facility] Diagnosis Type 2 diabetes mellitus without [...] involving urinary system Coronary artery disease involving 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 Posttraumatic stress disorder [facility] Diagnosis Posttraumatic stress disorder [facility] Diagnosis 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 epilepticus, unspecified epilepsy type (HCC) Hypertension, essential Unspecified essential hypertension [facility] Diagnosis Low back pain, unspecified back [...] neoplasm of prostate [facility] Diagnosis Hypertension, essential Unspecified essential hypertension 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 epilepticus, unspecified epilepsy type (HCC) [facility] Diagnosis Alcohol-induced chronic pancreatitis (HCC)- Primary Chronic pancreatitis [facility] Diagnosis Seasonal allergic rhinitis due to pollen Posttraumatic stress disorder [facility] Diagnosis Alcohol-induced chronic pancreatitis (HCC)- Primary Chronic pancreatitis [facility] Diagnosis Alcohol-induced chronic pancreatitis (HCC)- Primary Chronic pancreatitis Type 2 diabetes mellitus without complication, with long-term current use of insulin (HCC) Hypertension, essential Unspecified essential hypertension Cervical spondylosis Cervical spondylosis without myelopathy Nonintractable generalized 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 (HCC) Fatty liver due to alcoholism [facility] Diagnosis Hypertension, essential Unspecified essential hypertension 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 epilepticus, unspecified epilepsy type (HCC) [facility]* Diagnosis Sore throat- Primary Acute pharyngitis URI, acute Acute upper respiratory infections of unspecified site [facility]* Diagnosis Nausea- Primary Nausea alone Hypertension, essential Unspecified essential hypertension 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 epilepticus, unspecified epilepsy type (HCC) Alcohol-induced chronic pancreatitis (HCC) Chronic pancreatitis Dizziness Dizziness and giddiness Type 2 diabetes mellitus without complication, with long-term current use of insulin ([facility]) [facility]* Diagnosis Type 2 diabetes mellitus without [...] eyes Preglaucoma, unspecified [facility]* Diagnosis Posttraumatic stress disorder Seasonal allergic rhinitis due to pollen [facility]* Diagnosis Type 2 diabetes mellitus without complication, with long-term current use of insulin (HCC)- Primary Dermatophytosis, nail Dermatophytosis of nail Pain in toe of left foot Pain in limb Pain in toe of right foot Pain in limb Diminished pulses in lower extremity Other symptoms involving cardiovascular system [facility]* Diagnosis Type 2 diabetes mellitus without complication, with long-term current use of insulin (HCC)- Primary Encounter for immunization Need for other specified prophylactic vaccination against single bacterial disease [facility]* Diagnosis Hypertension, essential Unspecified essential hypertension [facility]* Diagnosis 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 epilepticus, unspecified epilepsy type (HCC) documented in this encounter [facility] for referral (narrative)* Diagnostic Procedure Only (Routine) - Closed Specialty Diagnoses / Procedures Referred By Contac t Referred To Contact XR IMAGING Diagnoses Left hip pain Procedures XR HIP GENERAL 3V PELV/AP/LAT LEFT RADEX HIP UNILATERAL WITH PELVIS 2-3 VIEWS Lobito Mcmanus MD [address] [place] [address] Xr Imaging Referral ID Status Reason Start Date Expiration Date V isits Requested Visits Authorized [id number] Closed Auto-Generate d Referral 08/19/2022 09/18/2023 1 1 [facility] Out[facility] Procedure (Routine) - Authorized Specialty Diagnoses / Procedures Referred By Susie t Referred To Contact [facility] Diagnoses Type 2 diabetes mellitus without complication, with long-term current use of insulin ([facility]) Diminished pulses in lower extremity Procedures PVR ANK PRESS [facility] NON-INVAS PHYSIOLOGIC STD EXTREMITY ART 2 LEVEL Rasheed Benitez [address] [place] [address] [facility] [address] [place] [address] Referral ID Status Reason Start Date Expiration Date Visits Requested Visits Authorized [id number] Authorized Auto-Generat ed Referral 05/19/2023 05/18/2024 1 1 [facility] Summary Purpose Family History No Family History Records FoundNo Family History Records FoundNo Family History Records FoundNo Family History Records FoundNo Family History Records Found Advance Directives No Advanced Directives Records FoundNo Advanced Directives Records FoundNo Advanced Directives Records FoundNo Advanced Directives Records FoundNo Advanced Directives Records Found Reason for Referral Specialty Diagnoses / Procedures Referred By Contac t Referred To Contact Optometry Diagnoses Type 2 diabetes mellitus without complication, with long-term current use of insulin (HCC) Procedures CONSULT TO OPTOMETRY OFFICE/OUTPATIENT NEW HIGH MDM 60-74 MINUTES Lobito Mcmanus MD [address] [place] [address] Referral ID Status Reason Start Date Expiration Date Visits Requested Visits Authorized [id number] Authorized PCP Requested Referral 02/06/2023 02/06/2024 1 1 Medications Administered Section Active Administered Medications - up to 3 most recent administrations Medication Order MAR Action Action Date Dose Rate Site PHENYLephrine 2.5 % 1 Drop (AK-DILATE, CRUZ-SYNEPHRINE) 1 Drop, BOTH EYES, DIRECTED, Starting on Mon02/21/23 at 1000, Until Mon02/21/23 at 2158, Administer for dilation PROTECT FROM LIGHT Given 02/21/2023 10:00 AM EDT 1 Drop proparacaine 0.5 % 1 Drop (ALCAINE) 1 Drop, BOTH EYES, DIRECTED, Starting on Mon02/21/23 at 1000, Until Mon02/21/23 at 2158, Administer for pneumo tonometry, tonopen tonometry, or pachymetry. In the event of a proparacaine shortage, administer tetracaine 0.5% ophthalmic drops 1 drop in the left eye as directed for pneumo tonometry, tonopen tonometry, or pachymetry Given 02/21/2023 10:00 AM EDT 1 Drop tropicamide 1 % 1 Drop (MYDRIACYL) 1 Drop, BOTH EYES, DIRECTED, Starting on Mon02/21/23 at 1000, Until Mon02/21/23 at 2158, Administer for dilation Given 02/21/2023 10:00 AM EDT 1 Drop Additional Source Comments (unrecognized sect ion and content) No Status Records FoundNo Status Records FoundNo Status Records FoundNo Status Records FoundNo Status Records Found INFORMATION SOURCE (unrecogn ized section and content) DATE CREATED AUTHOR AUTHOR'S ORGANIZ ATION 11/27/2019 [facility] DATE CREATED AUTHOR AUTHOR'S ORGANIZ ATION 12/24/2021 [facility] DATE CREATED AUTHOR AUTHOR'S ORGANIZ ATION 05/23/2022 [facility] DATE CREATED AUTHOR AUTHOR'S ORGANIZ ATION 10/25/2023 [facility] Source Comments (unrecognize d section and content) In the event this informatio n is protected by the Federal Confidentiality of Alcohol and Drug Abuse Patient Records regulations: The Federal rules restrict any use of the information to criminally investigate or prosecute any alcohol or drug abuse patient.[facility] the event this information is protected by the Federal Confidentiality of Alcohol and Drug Abuse Patient Records regulations: The Federal rules restrict any use of the information to criminally investigate or prosecute any alcohol or drug abuse patient.[facility] [place] [facility] HospitalIn the event this information is protected by the Federal Confidentiality of Alcohol and Drug Abuse Patient Records regulations: The Federal rules restrict any use of the information to criminally investigate or prosecute any alcohol or drug abuse patient.[facility] HospitalIn the event this information is protected by the Federal Confidentiality of Alcohol and Drug Abuse Patient Records regulations: The Federal rules restrict any use of the information to criminally investigate or prosecute any alcohol or drug abuse patient.[facility] HospitalIn the event this information is protected by the Federal Confidentiality of Alcohol and Drug Abuse Patient Records regulations: The Federal rules restrict any use of the information to criminally investigate or prosecute any alcohol or drug abuse patient.[facility] HospitalIn the event this information is protected by the Federal Confidentiality of Alcohol and Drug Abuse Patient Records regulations: The Federal rules restrict any use of the information to criminally investigate or prosecute any alcohol or drug abuse patient.[facility] HospitalIn the event this information is protected by the Federal Confidentiality of Alcohol and Drug Abuse Patient Records regulations: The Federal rules restrict any use of the information to criminally investigate or prosecute any alcohol or drug abuse patient.[facility] [place] [facility] HospitalIn the event this information is protected by the Federal Confidentiality of Alcohol and Drug Abuse Patient Records regulations: The Federal rules restrict any use of the information to criminally investigate or prosecute any alcohol or drug abuse patient.[facility] HospitalIn the event this information is protected by the Federal Confidentiality of Alcohol and Drug Abuse Patient Records regulations: The Federal rules restrict any use of the information to criminally investigate or prosecute any alcohol or drug abuse patient.[facility] HospitalIn the event this information is protected by the Federal Confidentiality of Alcohol and Drug Abuse Patient Records regulations: The Federal rules restrict any use of the information to criminally investigate or prosecute any alcohol or drug abuse patient.[facility] [place] [facility] HospitalIn the event this information is protected by the Federal Confidentiality of Alcohol and Drug Abuse Patient Records regulations: The Federal rules restrict any use of the information to criminally investigate or prosecute any alcohol or drug abuse patient.[facility] HospitalIn the event this information is protected by the Federal Confidentiality of Alcohol and Drug Abuse Patient Records regulations: The Federal rules restrict any use of the information to criminally investigate or prosecute any alcohol or drug abuse patient.[facility] HospitalIn the event this information is protected by the Federal Confidentiality of Alcohol and Drug Abuse Patient Records regulations: The Federal rules restrict any use of the information to criminally investigate or prosecute any alcohol or drug abuse patient.[facility] [place] [facility] HospitalIn the event this information is protected by the Federal Confidentiality of Alcohol and Drug Abuse Patient Records regulations: The Federal rules restrict any use of the information to criminally investigate or prosecute any alcohol or drug abuse patient.[facility] [place] [facility] HospitalIn the event this information is protected by the Federal Confidentiality of Alcohol and Drug Abuse Patient Records regulations: The Federal rules restrict any use of the information to criminally investigate or prosecute any alcohol or drug abuse patient.[facility] [place] [facility] HospitalIn the event this information is protected by the Federal Confidentiality of Alcohol and Drug Abuse Patient Records regulations: The Federal rules restrict any use of the information to criminally investigate or prosecute any alcohol or drug abuse patient.[facility] HospitalIn the event this information is protected by the Federal Confidentiality of Alcohol and Drug Abuse Patient Records regulations: The Federal rules restrict any use of the information to criminally investigate or prosecute any alcohol or drug abuse patient.[facility] HospitalIn the event this information is protected by the Federal Confidentiality of Alcohol and Drug Abuse Patient Records regulations: The Federal rules restrict any use of the information to criminally investigate or prosecute any alcohol or drug abuse patient.[facility] HospitalIn the event this information is protected by the Federal Confidentiality of Alcohol and Drug Abuse Patient Records regulations: The Federal rules restrict any use of the information to criminally investigate or prosecute any alcohol or drug abuse patient.[facility] HospitalIn the event this information is protected by the Federal Confidentiality of Alcohol and Drug Abuse Patient Records regulations: The Federal rules restrict any use of the information to criminally investigate or prosecute any alcohol or drug abuse patient.[facility] [place] [facility] HospitalIn the event this information is protected by the Federal Confidentiality of Alcohol and Drug Abuse Patient Records regulations: The Federal rules restrict any use of the information to criminally investigate or prosecute any alcohol or drug abuse patient.[facility] [place] [facility] HospitalIn the event this information is protected by the Federal Confidentiality of Alcohol and Drug Abuse Patient Records regulations: The Federal rules restrict any use of the information to criminally investigate or prosecute any alcohol or drug abuse patient.[facility] [place] [facility] HospitalIn the event this information is protected by the Federal Confidentiality of Alcohol and Drug Abuse Patient Records regulations: The Federal rules restrict any use of the information to criminally investigate or prosecute any alcohol or drug abuse patient.[facility] [place] [facility] HospitalIn the event this information is protected by the Federal Confidentiality of Alcohol and Drug Abuse Patient Records regulations: The Federal rules restrict any use of the information to criminally investigate or prosecute any alcohol or drug abuse patient.[facility] [place] [facility] HospitalIn the event this information is protected by the Federal Confidentiality of Alcohol and Drug Abuse Patient Records regulations: The Federal rules restrict any use of the information to criminally investigate or prosecute any alcohol or drug abuse patient.[facility] [place] [facility] HospitalIn the event this information is protected by the Federal Confidentiality of Alcohol and Drug Abuse Patient Records regulations: The Federal rules restrict any use of the information to criminally investigate or prosecute any alcohol or drug abuse patient.[facility] [place] [facility] HospitalIn the event this information is protected by the Federal Confidentiality of Alcohol and Drug Abuse Patient Records regulations: The Federal rules restrict any use of the information to criminally investigate or prosecute any alcohol or drug abuse patient.[facility] [place] [facility] HospitalIn the event this information is protected by the Federal Confidentiality of Alcohol and Drug Abuse Patient Records regulations: The Federal rules restrict any use of the information to criminally investigate or prosecute any alcohol or drug abuse patient.[facility] [place] [facility] HospitalIn the event this information is protected by the Federal Confidentiality of Alcohol and Drug Abuse Patient Records regulations: The Federal rules restrict any use of the information to criminally investigate or prosecute any alcohol or drug abuse patient.[facility] [place] [facility] HospitalIn the event this information is protected by the Federal Confidentiality of Alcohol and Drug Abuse Patient Records regulations: The Federal rules restrict any use of the information to criminally investigate or prosecute any alcohol or drug abuse patient.[facility] [place] [facility] HospitalIn the event this information is protected by the Federal Confidentiality of Alcohol and Drug Abuse Patient Records regulations: The Federal rules restrict any use of the information to criminally investigate or prosecute any alcohol or drug abuse patient.[facility] [place] [facility] HospitalIn the event this information is protected by the Federal Confidentiality of Alcohol and Drug Abuse Patient Records regulations: The Federal rules restrict any use of the information to criminally investigate or prosecute any alcohol or drug abuse patient.[facility] [place] [facility] HospitalIn the event this information is protected by the Federal Confidentiality of Alcohol and Drug Abuse Patient Records regulations: The Federal rules restrict any use of the information to criminally investigate or prosecute any alcohol or drug abuse patient.[facility] [place] [facility] HospitalIn the event this information is protected by the Federal Confidentiality of Alcohol and Drug Abuse Patient Records regulations: The Federal rules restrict any use of the information to criminally investigate or prosecute any alcohol or drug abuse patient.[facility] HospitalIn the event this information is protected by the Federal Confidentiality of Alcohol and Drug Abuse Patient Records regulations: The Federal rules restrict any use of the information to criminally investigate or prosecute any alcohol or drug abuse patient.[facility] [place] [facility] HospitalIn the event this information is protected by the Federal Confidentiality of Alcohol and Drug Abuse Patient Records regulations: The Federal rules restrict any use of the information to criminally investigate or prosecute any alcohol or drug abuse patient.[facility] [place] [facility] HospitalIn the event this information is protected by the Federal Confidentiality of Alcohol and Drug Abuse Patient Records regulations: The Federal rules restrict any use of the information to criminally investigate or prosecute any alcohol or drug abuse patient.[facility] Reason for Visit (unrecogniz ed section and content) Reason Onset Date Comments Refill Request 03/09/2022 Reason Comments Hospital F/U pancreatitis Establish Care from Family Practice Reason Comments Consult Initial [facility] Pt Outr each Reason Onset Date Comments [...] chills , congestion x3 days Reason Comments [facility] ER visit Reason Onset Date Comments Refill Request 01/16/2023 Reason Comments Diabetes Blood sugar: 146A1c: 10.9 Specialty Diagnoses / Procedures Referred By Susie t Referred To Contact Optometry Diagnoses Type 2 diabetes mellitus without complication, with long-term current use of insulin (HCC) Procedures CONSULT TO OPTOMETRY OFFICE/OUTPATIENT NEW HIGH MDM 60-74 MINUTES Lobito Mcmanus MD [address] [place] [address] Referral ID Status Reason Start Date Expiration Date V isits Requested Visits Authorized [id number] Closed PCP Requested Referral 02/06/2023 02/06/2024 1 1 Reason Onset Date Comments Refill Request 05/01/2023 Reason Comments New Nail Check Specialty Diagnoses / Procedures Referred By Susie corrales Referred To Contact Podiatry Diagnoses Type 2 diabetes mellitus without complication, with long-term current use of insulin (HCC) Dermatophytosis, nail Procedures CONSULT TO PODIATRY OFFICE/OUTPATIENT NEW HIGH MDM 60-74 MINUTES Lobito Mcmanus MD [address] [place] [address] Referral ID Status Reason Start Date Expiration Date V isits Requested Visits Authorized [id number] Closed PCP Requested Referral 05/04/2023 05/03/2024 1 1 Reason Comments 2 month follow up - blood sugar Reason Onset Date Comments Refill Request 08/21/2023 Reason Onset Date Comments Refill Request 08/29/2023 Care Teams (unrecognized sec tion and content) Retail Performance Specialist Relationship Specialty Start Date End Date Souleymane Kelly APRN.CNP, DNP [address] [place] [address] PCP - General Family Practice 12/01/20 Heather Kelley CNP [address] [place] [address] Referring Neurology 04/06/18 Retail Performance Specialist Relationship Specialty Start Date End Date Souleymane Kelly APRN.CNP, DNP [address] [place] [address] PCP - General Family Practice 12/01/20 Heather Kelley CNP [address] [place] [address] Referring Neurology 04/06/18 Retail Performance Specialist Relationship Specialty Start Date End Date Souleymane Kelly APRN.CNP DNP [address] [facility] [place] [address] PCP - General Family Practice 12/01/20 Heather Kelley CNP [address] [place] [address] Referring Neurology 04/06/18 Retail Performance Specialist Relationship Specialty Start Date End Date Lobito Mcmanus MD [address] [facility] [place] [address] PCP - General Internal Medicine 03/10/22 Heather eKlley CNP [address] [place] [address] Referring Neurology 04/06/18 Retail Performance Specialist Relationship Specialty Start Date End Date Lobito Mcmanus MD [address] [place] [address] PCP - General Internal Medicine 03/10/22 Heather Kelley CNP [address] [place] [address] Referring Neurology 04/06/18 Retail Performance Specialist Relationship Specialty Start Date End Date Lobito Mcmanus MD [address] [place] [address] PCP - General Internal Medicine 03/10/22 Heather Kelley CNP [address] [place] [address] Referring Neurology 04/06/18 Retail Performance Specialist Relationship Specialty Start Date End Date Lobito Mcmanus MD [address] [place] [address] PCP - General Internal Medicine 03/10/22 Heather Kelley CNP [address] [place] [address] Referring Neurology 04/06/18 Retail Performance Specialist Relationship Specialty Start Date End Date Lobito Mcmanus MD [address] [place] [address] PCP - General Internal Medicine 03/10/22 Heather Kelley, WELLNESS TRAINER [address] [place] [address] Referring Neurology 04/06/18 Retail Performance Specialist Relationship Specialty Start Date End Date Lobito Mcmanus MD [address] [place] [address] PCP - General Internal Medicine 03/10/22 Heather Kelley, WELLNESS TRAINER [address] [place] [address] Referring Neurology 04/06/18 Retail Performance Specialist Relationship Specialty Start Date End Date Lobito Mcmanus MD [address] [facility] [place] [address] PCP - General Internal Medicine 03/10/22 Heather Kelley, WELLNESS TRAINER [address] [place] [address] Referring Neurology 04/06/18 Retail Performance Specialist Relationship Specialty Start Date End Date Lobito Mcmanus MD [address] [facility] [place] [address] PCP - General Internal Medicine 03/10/22 Heahter Kelley, WELLNESS TRAINER [address] [place] [address] Referring Neurology 04/06/18 Retail Performance Specialist Relationship Specialty Start Date End Date Lobito Mcmanus MD [address] [facility] [place] [address] PCP - General Internal Medicine 03/10/22 Heather Kelley, WELLNESS TRAINER [address] [place] [address] Referring Neurology 04/06/18 Retail Performance Specialist Relationship Specialty Start Date End Date Souleymane Kelly APRN.WELLNESS TRAINER, DNP [address] [place] [address] PCP - General Family Medicine 12/01/20 03/09/22 Lobito Mcmanus MD [address] [place] [address] PCP - General Internal Medicine 03/10/22 Heather Kelley CNP [address] [place] [address] Referring Neurology 04/06/18 Retail Performance Specialist Relationship Specialty Start Date End Date Lobito Mcmanus MD [address] [place] [address] PCP - General Internal Medicine 03/10/22 Heather Kelley CNP [address] [place] [address] Referring Neurology 04/06/18 Retail Performance Specialist Relationship Specialty Start Date End Date Lobito Mcmanus MD [address] [place] [address] PCP - General Internal Medicine 03/10/22 Heathre Kellye CNP [address] [place] [address] Referring Neurology 04/06/18 Retail Performance Specialist Relationship Specialty Start Date End Date Lobito Mcmanus MD [address] [place] [address] PCP - General Internal Medicine 03/10/22 Heather Kelley CNP [address] [place] [address] Referring Neurology 04/06/18 Retail Performance Specialist Relationship Specialty Start Date End Date Lobito Mcmanus MD [address] [place] [address] PCP - General Internal Medicine 03/10/22 Heather Kelley, WELLNESS TRAINER [address] [place] [address] Referring Neurology 04/06/18 Retail Performance Specialist Relationship Specialty Start Date End Date Lobito Mcmanus MD [address] [place] [address] PCP - General Internal Medicine 03/10/22 Heather Kelley S, WELLNESS TRAINER [address] [place] [address] Referring Neurology 04/06/18 Retail Performance Specialist Relationship Specialty Start Date End Date Lobito Mcmanus MD [address] [place] [address] PCP - General Internal Medicine 03/10/22 Heather Kelley, WELLNESS TRAINER [address] [place] [address] Referring Neurology 04/06/18 Retail Performance Specialist Relationship Specialty Start Date End Date Lobito Mcmanus MD [address] [place] [address] PCP - General Internal Medicine 03/10/22 Heather Kelley, WELLNESS TRAINER [address] [place] [address] Referring Neurology 04/06/18 Retail Performance Specialist Relationship Specialty Start Date End Date Lobito Mcmanus MD [address] [place] [address] PCP - General Internal Medicine 03/10/22 Heather Kelley WELLNESS TRAINER [address] [place], [place] [address] Referring Neurology 04/06/18 Retail Performance Specialist Relationship Specialty Start Date End Date Lobito Mcmanus MD [address] [facility] [place] [address] PCP - General Internal Medicine 03/10/22 Heather Kelley WELLNESS TRAINER [address] [place], [place] [address] Referring Neurology 04/06/18 Retail Performance Specialist Relationship Specialty Start Date End Date Lobito Mcmanus MD [address] [facility], [place] [address] PCP - General Internal Medicine 03/10/22 Heather Kelley WELLNESS TRAINER [address] [place] [address] Referring Neurology 04/06/18 Retail Performance Specialist Relationship Specialty Start Date End Date Lobito Mcmanus MD [address] [facility], [place] [address] PCP - General Internal Medicine 03/10/22 Heather Kelley WELLNESS TRAINER [address] [place] [address] Referring Neurology 04/06/18 Retail Performance Specialist Relationship Specialty Start Date End Date Lobito Mcmanus MD [address] [facility] [place] [address] PCP - General Internal Medicine 03/10/22 Heather Kelley CNP [address] [place] [address] Referring Neurology 04/06/18 FOR RECORDS PERTAINING TO [...] BE BASED ON THE PRIMARY CLINICAL RECORDS. [employer] [facility]. provides no warranty or guarantee of the accuracy or completeness of information in this document.
[2023-11-07 10:21] VITALS: BP 136/88; PULSE 81; RESP 16; O2SAT 95
[2023-11-07] MEDS: oxyCODONE 5 MG Tablet PO (10:48)
== END 2023-11-07 11:48 | disposition home or self-care (01) ==
PROVIDERS: Emergency Provider Emergency Medicine; PCP Internal Medicine; Visit Provider Emergency Medicine
DX: K85.90 Acute pancreatitis without necrosis or infection, unspecified (principal); E11.42 Type 2 diabetes mellitus with diabetic polyneuropathy; E11.65 Type 2 diabetes mellitus with hyperglycemia; I10 Essential (primary) hypertension; E78.5 Hyperlipidemia, unspecified; K21.9 Gastro-esophageal reflux disease without esophagitis; I25.2 Old myocardial infarction; Z79.82 Long term (current) use of aspirin; Z79.84 Long term (current) use of oral hypoglycemic drugs; Z79.899 Other long term (current) drug therapy; Z87.891 Personal history of nicotine dependence; Z86.73 Personal history of transient ischemic attack (TIA), and cerebral infarction without residual deficits
CPT/HCPCS: 80053; 83690; 85025; 96361; 96374; 96375; 99283; J7030; A4216; J2405

== ENCOUNTER 2023-11-20 11:12 | Emergency (ER) | payer MEDICARE, MEDICAID, SELFPAY ==
[2023-11-20 11:14] VITALS: BP 116/80; PULSE 118; RESP 18; TEMP 35.5; O2SAT 100; BMI 25.9
--- NOTE | 2023-11-20 12:01 | EDS_ITS ---
HPI <DAFNE Johansen - Last Filed: 11/20/23 13:15> HPI - GI History of Present Illness Chief Complaint: Abd Pain Narrative Narrative: 58-year-old male with PMH of HTN, DM2, CAD, recurrent pancreatitis presents with 2 days of epigastric and right upper quadrant pain that radiates to his mid back. It feels similar to prior episodes of pancreatitis. The pain came on gradually and has worsened. It was worse after eating so he switched to Tylenol and clear fluids but the pain is increasing. He has nausea but no vomiting. He has normal bladder and daily bowel movements. No melena or hematochezia. He does not smoke and quit drinking alcohol a year ago. He has had a cholecystectomy. PFS <DAFNE Johansen - Last Filed: 11/20/23 13:15> FOR[facility]LY [facility], [facility] Medical History Alcohol abuse Anxiety and depression Cancer Constipation Diabetes Essential (primary) hypertension Family history of cerebral aneurysm Former tobacco use Gastric ulcer GERD (gastroesophageal reflux disease) GI bleed Glaucoma Hyperlipidemia Liver fibrosis Myocardial infarct Neck pain Polyneuropathy PSA elevation PTSD (post-traumatic stress disorder) Seizure disorder Stroke/cerebrovascular accident TIA (transient ischemic attack) Vision loss of left eye Vision loss of right eye Home Medications amitriptyline 25 mg tablet 25 mg PO QHS depression 07/03/18 [History Last Taken 11/27/22] cholecalciferol (vitamin D3) 125 mcg (5,000 unit) capsule 1 cap PO DAILY supplement 11/09/18 [History Last Taken 11/28/22] hydrochlorothiazide 25 mg tablet 25 mg PO DAILY blood pressure/heart #30 tabs 06/05/20 [Rx Last Taken 11/28/22] gabapentin 300 mg capsule 300 mg PO BID nerve pain 10/06/20 [History Last Taken 11/28/22] pravastatin 40 mg tablet 20 mg PO QHS cholesterol 02/27/22 [History Last Taken 11/27/22] metformin 500 mg tablet 500 mg PO BID diabetes #0 tabs 03/04/22 [Rx Last Taken 11/28/22] aspirin 81 mg tablet,delayed release 81 mg PO DAILY heart health 07/04/22 [History Last Taken 11/28/22] escitalopram oxalate 10 mg tablet 10 mg PO DAILY depression 07/04/22 [History Last Taken 11/28/22] loratadine 10 mg capsule 10 mg PO DAILY allergies 07/04/22 [History Last Taken 11/28/22] losartan 25 mg tablet 25 mg PO DAILY blood pressure 07/04/22 [History Last Taken 11/28/22] amlodipine 10 mg tablet 10 mg PO DAILY blood pressure #90 tabs 06/26/23 [Rx Last Taken Unknown] ursodiol 250 mg tablet 250 mg PO BID liver fibrosis #180 tabs 08/21/23 [Rx Last Taken Unknown] diphenhydramine HCl 25 mg capsule (Benadryl) 25 mg PO TID PRN allergy symptoms #30 caps 10/10/23 [Rx Last Taken Unknown] pantoprazole 40 mg tablet,delayed release (Protonix) 40 mg PO DAILY #30 tabs 10/10/23 [Rx Last Taken Unknown] levocarnitine 330 mg tablet 660 mg (2 x 330 mg) PO BID #120 tabs 10/24/23 [Rx Last Taken Unknown] oxycodone-acetaminophen 5 mg-325 mg tablet (Percocet) 1 tab PO Q8H PRN pain 3 days #10 tabs 11/07/23 [Rx Last Taken Unknown] ondansetron 4 mg disintegrating tablet 4 mg PO Q6H PRN nausea and vomiting #12 tabs 11/20/23 [Rx Last Taken Unknown] oxycodone-acetaminophen 5 mg-325 mg tablet (Percocet) 1 tab PO Q6H PRN pain 3 days #12 tabs 11/20/23 [Rx Last Taken Unknown] Allergy/AdvReac Type Severity Reaction Status Date / Time Iodinated Contrast Media Allergy Mild Rash Verified 11/20/23 11:13 hydromorphone [From Dilaudid] Allergy Itching Verified 11/20/23 11:13 lisinopril Allergy Angioedema Verified 11/20/23 11:13 cyclobenzaprine AdvReac Severe Skin Verified 11/20/23 11:13 crawling hydrocodone bitartrate AdvReac Itching Verified 11/20/23 11:13 [From Vicodin] morphine AdvReac Itching Verified 11/20/23 11:13 tramadol AdvReac Itching Verified 11/20/23 11:13 Family History Mother Heart disease Sister Cerebral aneurysm Father Diabetes Kidney disease Anxiety and depression Surgical History History of cholecystectomy (12/2013) History of left heart catheterization (10/31/11) Social History household members: none Smoking Status: Former smoker Tobacco: How many years used: 7 Electronic Cigarette Use: not used alcohol intake: former details: 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 substance use type: does not use caffeine: No robbin/adventism: Taoism seatbelt use: always ROS <DAFNE Johansen - Last Filed: 11/20/23 13:15> ROS ED ROS Narrative Constitutional: Negative for fever, chills, malaise. CVS: Negative for chest pain. Respiratory: Negative for shortness of breath. GI: Positive for abdominal pain, nausea. Negative for vomiting, diarrhea, constipation, melena, hematochezia. : Negative for dysuria. EXAM <DAFNE Johansen - Last Filed: 11/20/23 13:15> Physical Exam Narrative Exam Narrative: CONST: Patient sitting in no acute distress. EYES: Normal inspection. NECK: Normal inspection. RESP: No respiratory distress, CTAB. CVS: Regular rate and rhythm, no murmur, no gallop. ABD: Soft with epigastric and right upper quadrant tenderness, no guarding or rebound, nondistended, no hepatosplenomegaly. SKIN: Color normal, no rash, warm, dry, intact. EXTREMITIES: Normal appearance, no pedal edema. NEURO: Oriented x4. PSYCH: Normal affect. Const Vital Signs: 11/20/23 11:14 Temperature 96 F L Temperature Source Temporal Pulse Rate 118 H Respiratory Rate 18 Blood Pressure 116/80 Blood Pressure Mean 92 Pulse Ox 100 Oxygen Delivery Method Room Air <Dr. Rajendra Rios DO - Last Filed: 11/20/23 13:15> Physical Exam Const Vital Signs: 11/20/23 11:14 Temperature 96 F L Temperature Source Temporal Pulse Rate 118 H Respiratory Rate 18 Blood Pressure 116/80 Blood Pressure Mean 92 Pulse Ox 100 Oxygen Delivery Method Room Air MDM <DAFNE Johansen - Last Filed: 02/26/24 13:15> MDM MDM Narrative Medical decision making narrative: Patient has 2 days of upper abdominal pain and nausea that feels like prior pancreatitis episodes. He appears well and nontoxic. Heart rate 2018 with otherwise normal vital signs. He has upper abdominal tenderness on exam but no peritoneal signs. CBC is WNL. BMP shows sodium 134, BUN 19, creatinine 1.37 at baseline. Glucose of 275 is also within his normal range with normal CO2 and anion gap. Lipase is 117. Urinalysis is negative for infection. His last flareup of pancreatitis was 11/07/2023 with lipase of 167 and symptoms were managed at home with oxycodone. Patient is comfortable with outpatient management with oxycodone and Zofran. I discussed he should follow-up with his PCP and GI doctor and discussed return precautions. He was discharged in stable condition. Differential: Pancreatitis, GERD, PUD, viral Lab Data Attestation: I reviewed the patient's lab results. Labs: Laboratory Results - last 24 hr 11/20/23 11/20/23 12:17 12:30 WBC 9.8 RBC 4.60 Hgb 14.2 Hct 41.9 MCV 91.1 MCH 30.9 MCHC 33.9 RDW Std Deviation 41.2 RDW Coeff of Armin 12.5 Plt Count 201 MPV 9.4 Immature Gran % (Auto) 0.500 Neut % (Auto) 71.2 H Lymph % (Auto) 21.0 Vance % (Auto) 6.3 Eos % (Auto) 0.5 Baso % (Auto) 0.5 Absolute Neuts (auto) 6.9 Absolute Lymphs (auto) 2.05 Nucleated RBC % 0 Sodium 134 L Potassium 3.9 Chloride 101 Carbon Dioxide 26.0 Anion Gap 7 BUN 19 H Creatinine 1.37 H Estim Creat Clear Calc 60.69 Est GFR (MDRD) Af Amer 69 Est GFR (MDRD) Non-Af 57 L BUN/Creatinine Ratio 13.9 Glucose 275 H Calcium 9.5 Total Bilirubin 1.20 H AST 14 L ALT 17 Alkaline Phosphatase 73 Total Protein 8.0 Albumin 4.3 Globulin 3.7 Albumin/Globulin Ratio 1.2 Lipase 117 H Urine Color Yellow Urine Clarity Clear Urine pH 6.0 Ur Specific [place] 1.015 Urine Protein 30 H Urine Glucose (UA) 1000 H Urine Ketones 5 H Urine Occult Blood 10 H Urine Nitrite Negative Urine Bilirubin Negative Urine Urobilinogen 1 H Ur Leukocyte Esterase 25 H Urine RBC 0-5 SEEN Urine WBC 0-5 SEEN Ur Squamous Epith Cells 0-5 SEEN Urine Bacteria 0 SEEN Urine Mucus 0 SEEN <Dr. Rajendra Rios, DO - Last Filed: 11/20/23 13:15> [facility] Lab Data Labs: Laboratory Results - last 24 hr 11/20/23 11/20/23 12:17 12:30 WBC 9.8 RBC 4.60 Hgb 14.2 Hct 41.9 MCV 91.1 MCH 30.9 MCHC 33.9 RDW Std Deviation 41.2 RDW Coeff of Armin 12.5 Plt Count 201 MPV 9.4 Immature Gran % (Auto) 0.500 Neut % (Auto) 71.2 H Lymph % (Auto) 21.0 Vance % (Auto) 6.3 Eos % (Auto) 0.5 Baso % (Auto) 0.5 Absolute Neuts (auto) 6.9 Absolute Lymphs (auto) 2.05 Nucleated RBC % 0 Sodium 134 L Potassium 3.9 Chloride 101 Carbon Dioxide 26.0 Anion Gap 7 BUN 19 H Creatinine 1.37 H Estim Creat Clear Calc 60.69 Est GFR (MDRD) Af Amer 69 Est GFR (MDRD) Non-Af 57 L BUN/Creatinine Ratio 13.9 Glucose 275 H Calcium 9.5 Total Bilirubin 1.20 H AST 14 L ALT 17 Alkaline Phosphatase 73 Total Protein 8.0 Albumin 4.3 Globulin 3.7 Albumin/Globulin Ratio 1.2 Lipase 117 H Urine Color Yellow Urine Clarity Clear Urine pH 6.0 Ur Specific [place] 1.015 Urine Protein 30 H Urine Glucose (UA) 1000 H Urine Ketones 5 H Urine Occult Blood 10 H Urine Nitrite Negative Urine Bilirubin Negative Urine Urobilinogen 1 H Ur Leukocyte Esterase 25 H Urine RBC 0-5 SEEN Urine WBC 0-5 SEEN Ur Squamous Epith Cells 0-5 SEEN Urine Bacteria 0 SEEN Urine Mucus 0 SEEN Treatment and Re-Evaluation :: I have personally performed a face to face assessment of the patient and have reviewed the JENNIFER Note. I performed a substantive portion of the visit including all aspects of the following. My jones findings include: History: Patient presents with epigastric abdominal pain that has been getting worse over the past 3 days. Patient states it came on gradually. Patient describes his pain as dull but sharp at times. Patient states pain is over the epigastric area and right upper abdomen. Patient states it is worse with laying down. Patient states it is better with Percocet. Patient admits to some nausea but denies any vomiting. Patient denies any diarrhea, melena, or hematochezia. Patient admits to some mild dysuria. Patient denies any fevers or chills. Exam: Vital signs are stable except for tachycardia of 118. Patient is afebrile. Patient is in no acute distress. Oral mucosa is pink and moist. Neck is supple. Trachea is midline. There is no JVD. Heart was regular and tachycardic. Lungs are clear and equal bilaterally. Abdomen is soft. Bowel sounds are normal. There is tenderness over the epigastric and right upper quadrant areas. There is no rebound or guarding noted. Cranial nerves II through XII are intact. There are no focal motor or sensory deficits noted. Medical Decision Making: Differential diagnosis includes pancreatitis, peptic u lcer disease, GERD, and gastritis. CBC will be obtained to assess for leukocytosis and anemia. Comprehensive metabolic profile will be obtained to assess for hepatic function, renal function, and electrolyte abnormality. Urinalysis will be obtained to assess for urinary tract infection. Lipase will be obtained to assess for pancreatitis. CBC was reviewed and was within normal limits. Comprehensive metabolic profile was reviewed and was essentially within normal limits. BUN was slightly elevated at 19 and creatinine was 1.37. This is consistent with prior results. Lipase was reviewed and was slightly elevated at 117. Urinalysis was reviewed. There is no evidence of urinary tract infection or hematuria. Patient was given a dose of morphine and Zofran here. Patient was given a dose of Percocet here. Patient was instructed to follow-up with his primary care physician in 3 to 5 days for further evaluation. Patient was instructed to start with a liquid diet and advance as tolerated. Patient understood and was agreeable with the plan. All questions were answered. Discharge Plan Triage Chief Complaint: Abd Pain ED Midlevel Provider: Noelle Lynne ED Provider: Rajendra Rios Dx/Rx/DC Orders Clinical Impression: Abdominal pain, epigastric, Elevated lipase Instructions: Communicating About Pain Prescriptions: No Action amitriptyline 25 mg tablet 25 mg PO QHS gabapentin 300 mg capsule 300 mg PO BID levocarnitine 330 mg tablet 660 mg PO BID Qty: 120 7RF Rx Instructions: must administer with a meal/food cholecalciferol (vitamin D3) 5,000 capsule 1 cap PO DAILY pravastatin 40 mg Tablet 20 mg PO QHS metformin 500 MG tablet 500 mg PO BID Qty: 0 0RF Hold Instructions: Hold for 3 days aspirin 81 mg Tablet,Delayed Release (Dr/Ec) 81 mg PO DAILY losartan 25 mg tablet 25 mg PO DAILY escitalopram oxalate 10 mg tablet 10 mg PO DAILY loratadine 10 MG capsule 10 mg PO DAILY pantoprazole [Protonix] 40 mg tablet,delayed release (DR/EC) 40 mg PO DAILY Qty: 30 0RF diphenhydramine HCl [Benadryl] 25 mg capsule 25 mg PO TID PRN (Reason: allergy symptoms) Qty: 30 0RF oxycodone-acetaminophen [Percocet] 5-325 mg tablet 1 tab PO Q8H PRN (Reason: pain) 3 Days Qty: 10 0RF hydrochlorothiazide 25 mg tablet 25 mg PO DAILY Qty: 30 11RF Hold Instructions: Hold for 3 days and start with 12.5 mg, half tablet daily. amlodipine 10 mg tablet 10 mg PO DAILY Qty: 90 3RF ursodiol 250 mg tablet 250 mg PO BID Qty: 180 1RF Primary Care Provider: Lobito Maldonado Referrals: Lobito Maldonado MD [Primary Care Provider] -
[2023-11-20] MEDS: Ondansetron 4 MG/2 ML Vial IV (12:17)
[2023-11-20] MEDS: Morphine 4 MG/ML Syringe IV (12:18)
[2023-11-20] MEDS: DiphenhydrAMINE 50 MG/ML Syringe 25 MG IV (12:18)
[2023-11-20] MEDS: 0.9% Normal Saline (1000mL) 1,000 ML 999 ML IV (12:19)
[2023-11-20 12:30] LABS: Absolute Lymphocyte Count 2.05 X10^3/uL (0.83-4.51); Absolute Neutrophil Count 6.9 X10^3/uL (2.0-7.7); Basophil# 0.05 X10^3/uL; Basophil% 0.5 % (0-1); Eosinophil# 0.05 X10^3/uL; Eosinophils% 0.5 % (0-5); Hematocrit 41.9 % (40-54); Hemoglobin 14.2 g/dL (13.0-16.5); Lymphocyte # 2.05 X10^3/ul (0.83-4.51); Mean Corp Hgb Conc 33.9 g/dL (32-36); Mean Corpuscular Hgb 30.9 pg (27.0-32.0); Mean Corpuscular Volume 91.1 fL (80-94); Mean Platelet Vol. 9.4 fl (6.2-12.0); Monocyte# 0.61 X10^3/uL; Monocyte% 6.3 % (0-10); NRBC Flagged by Analyzer 0 % (0-5); Neutrophil # 6.94 X10^3/uL (2.7-7.7); Neutrophil % 71.2 % (47-70); Platelet Count 201 K/mm3 (150-450); RBC Distribution Width CV 12.5 % (11.6-14.6); RBC Distribution Width SD 41.2 fl (35.1-43.9); White Blood Count 9.8 K/mm3 (4.4-11.0)
[2023-11-20 12:42] LABS: ALB/GLOB Ratio 1.2 RATIO (0.9-2.4); AST(SGOT) 14 U/L (15-37); Alanine Aminotransfer ALT/SGPT 17 U/L (16-61); Albumin, Serum 4.3 g/dL (3.2-5.0); Alkaline Phosphatase 73 U/L (45-117); Anion Gap 7 (5-15); BUN 19 mg/dL (7-18); BUN/Creat Ratio 13.9 RATIO (10-20); Calcium,Total 9.5 mg/dL (8.5-10.1); Chloride 101 mmol/L (98-107); Creatinine, Serum 1.37 mg/dL (0.70-1.30); EST Glomerular Filtration Rate 57 mL/min (>60); Est Glom Filt Rate - Afr Amer 69 mL/min (>60); Estimated Creatinine Clearance 60.69 ml/min; Globulin 3.7 g/dL (2.2-4.2); Glucose 275 mg/dL (74-106); Lipase 117 U/L (13-75); Potassium 3.9 mmol/L (3.5-5.1); Sodium Level 134 mmol/L (136-145)
[2023-11-20 12:42] LABS: Bacteria 0 SEEN /hpf (None Seen); Color, Urine Yellow (Yellow); Glucose, Dipstick 1000 mg/dl (Normal); Ketone-Dipstick 5 mg/dl (Negative); Leukocyte Esterase-Dipstick 25 /ul (Negative); Mucous, Urine 0 SEEN /hpf (<or=2+); Nitrite-Dipstick Negative (Negative); Occult Blood-Urine 10 /ul (Negative); Protein-Dipstick 30 mg/dl (Negative); Specific Gravity, Urine 1.015 (1.002-1.030); Urine Bilirubin Dipstick Negative (Negative); Urine Clarity Clear (Clear); Urine Urobilinogen 1 mg/dl (Normal)
[2023-11-20 12:53] LABS: Red Blood Cells-Urine 0-5 SEEN /hpf (0-5); Squamous Epithelial Cells - UA 0-5 SEEN /hpf (0-5); White Blood Cells 0-5 SEEN /hpf (0-5)
[2023-11-20] MEDS: Oxycodone/Apap 5/325 Tablet PO (13:26)
[2023-11-20 13:28] VITALS: BP 149/98; PULSE 90; RESP 18; TEMP 36.3; O2SAT 99
== END 2023-11-20 13:30 | disposition home or self-care (01) ==
PROVIDERS: Physician Assistant; Emergency Provider Emergency Medicine; PCP Internal Medicine; Visit Provider Emergency Medicine
DX: R10.13 Epigastric pain (principal); E11.42 Type 2 diabetes mellitus with diabetic polyneuropathy; R10.11 Right upper quadrant pain; R74.8 Abnormal levels of other serum enzymes; R11.0 Nausea; R00.0 Tachycardia, unspecified; I25.10 Atherosclerotic heart disease of native coronary artery without angina pectoris; I10 Essential (primary) hypertension; Z79.82 Long term (current) use of aspirin; Z79.899 Other long term (current) drug therapy; Z90.49 Acquired absence of other specified parts of digestive tract; Z87.891 Personal history of nicotine dependence; Z86.73 Personal history of transient ischemic attack (TIA), and cerebral infarction without residual deficits
CPT/HCPCS: 80053; 81001; 83690; 85025; 96361; 96374; 96375; 99283; J7030; J2405

== ENCOUNTER → 2023-12-22 | Outpatient (CLI) | payer MEDICARE, MEDICAID, SELFPAY ==
[2023-12-25 09:07] LABS: KEPPRA (LEVETIRACETAM) 24.1 ug/mL (10.0-40.0)
== END | disposition home or self-care (01) ==
LOC: MTLAB 08:41
PROVIDERS: PCP Internal Medicine; Referring Provider Psychiatry & Neurology Neurology; Visit Provider Psychiatry & Neurology Neurology
DX: G40.909 Epilepsy, unspecified, not intractable, without status epilepticus (principal)
CPT/HCPCS: 36415; 80177; 82140

== ENCOUNTER 2024-01-07 02:51 | Inpatient (IN) | payer MEDICARE, MEDICAID, SELFPAY ==
[2024-01-07] VITALS (7 sets, daily range): BP systolic 129–151; BP diastolic 81–95; PULSE 90–103; RESP 16–20; TEMP 36.3–37.2; O2SAT 94–98; BMI 28.0; BMI 26.6
[2024-01-07] MEDS: Ondansetron 4 MG/2 ML Vial IV (03:28)
[2024-01-07] MEDS: DiphenhydrAMINE 50 MG/ML Syringe 25 MG IV ×2 (03:28→22:24)
[2024-01-07] MEDS: HYDROmorphone 1 MG/ML Syringe IV ×5 (03:28→20:46)
[2024-01-07] MEDS: 0.9% Normal Saline (1000mL) 1,000 ML 999 ML IV (03:29)
--- NOTE | 2024-01-07 03:32 | EX.ED.DYSGE1 ---
HPI History of Present Illness Chief Complaint: Abd Pain Informant: patient Narrative Narrative: Patient is a 58-year-old male with past medical history of hypertension hyperlipidemia epilepsy [id number] diabetes and chronic pancreatitis. He states that on Monday as the weather was nice he was out working in his yard. He states after finishing his work he decided to have 3 beers. He states this was more mid afternoon around 3 or 4 PM. He reports he was doing well but this evening began with upper abdominal pain and bouts of nausea and vomiting that felt similar nature to his previous issues of pancreatitis and secondary to this called EMS to bring him in for evaluation. [facility] Medical History Alcohol abuse Anxiety and depression Cancer Constipation Diabetes Essential (primary) hypertension Family history of cerebral aneurysm Former tobacco use Gastric ulcer GERD (gastroesophageal reflux disease) GI bleed Glaucoma Hyperlipidemia Liver fibrosis Myocardial infarct Neck pain Polyneuropathy PSA elevation PTSD (post-traumatic stress disorder) Seizure disorder Stroke/cerebrovascular accident TIA (transient ischemic attack) Vision loss of left eye Vision loss of right eye Home Medications amitriptyline 25 mg tablet 25 mg PO QHS depression 07/03/18 [History Last Taken 11/27/22] cholecalciferol (vitamin D3) 125 mcg (5,000 unit) capsule 1 cap PO DAILY supplement 11/09/18 [History Last Taken 11/28/22] hydrochlorothiazide 25 mg tablet 25 mg PO DAILY blood pressure/heart #30 tabs 06/05/20 [Rx Last Taken 11/28/22] gabapentin 300 mg capsule 300 mg PO BID nerve pain 10/06/20 [History Last Taken 11/28/22] pravastatin 40 mg tablet 20 mg PO QHS cholesterol 02/27/22 [History Last Taken 11/27/22] metformin 500 mg tablet 500 mg PO BID diabetes #0 tabs 03/04/22 [Rx Last Taken 11/28/22] aspirin 81 mg tablet,delayed release 81 mg PO DAILY heart health 07/04/22 [History Last Taken 11/28/22] escitalopram oxalate 10 mg tablet 10 mg PO DAILY depression 07/04/22 [History Last Taken 11/28/22] loratadine 10 mg capsule 10 mg PO DAILY allergies 07/04/22 [History Last Taken 11/28/22] losartan 25 mg tablet 25 mg PO DAILY blood pressure 07/04/22 [History Last Taken 11/28/22] amlodipine 10 mg tablet 10 mg PO DAILY blood pressure #90 tabs 06/26/23 [Rx Last Taken Unknown] ursodiol 250 mg tablet 250 mg PO BID liver fibrosis #180 tabs 08/21/23 [Rx Last Taken Unknown] diphenhydramine HCl 25 mg capsule (Benadryl) 25 mg PO TID PRN allergy symptoms #30 caps 10/10/23 [Rx Last Taken Unknown] pantoprazole 40 mg tablet,delayed release (Protonix) 40 mg PO DAILY #30 tabs 10/10/23 [Rx Last Taken Unknown] levocarnitine 330 mg tablet 660 mg (2 x 330 mg) PO BID #120 tabs 10/24/23 [Rx Last Taken Unknown] oxycodone-acetaminophen 5 mg-325 mg tablet (Percocet) 1 tab PO Q8H PRN pain 3 days #10 tabs 11/07/23 [Rx Last Taken Unknown] ondansetron 4 mg disintegrating tablet 4 mg PO Q6H PRN nausea and vomiting #12 tabs 11/20/23 [Rx Last Taken Unknown] oxycodone-acetaminophen 5 mg-325 mg tablet (Percocet) 1 tab PO Q6H PRN pain 3 days #12 tabs 11/20/23 [Rx Last Taken Unknown] ondansetron 4 mg disintegrating tablet 4 mg PO TID PRN nausea and vomiting #21 tabs 01/07/24 [Rx Last Taken Unknown] oxycodone-acetaminophen 5 mg-325 mg tablet (Percocet) 1 tab PO Q6H PRN pain 3 days #12 tabs 01/07/24 [Rx Last Taken Unknown] Allergy/AdvReac Type Severity Reaction Status Date / Time Iodinated Contrast Media Allergy Mild Rash Verified 11/20/23 11:13 hydromorphone [From Dilaudid] Allergy Itching Verified 11/20/23 11:13 lisinopril Allergy Angioedema Verified 11/20/23 11:13 cyclobenzaprine AdvReac Severe Skin Verified 11/20/23 11:13 crawling hydrocodone bitartrate AdvReac Itching Verified 11/20/23 11:13 [From Vicodin] morphine AdvReac Itching Verified 11/20/23 11:13 tramadol AdvReac Itching Verified 11/20/23 11:13 Family History Mother Heart disease Sister Cerebral aneurysm Father Diabetes Kidney disease Anxiety and depression Surgical History History of cholecystectomy (12/2013) History of left heart catheterization (10/31/11) Social History household members: none Smoking Status: Former smoker Tobacco: How many years used: 7 Electronic Cigarette Use: not used alcohol intake: former details: 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 substance use type: does not use caffeine: No robbin/restorationist: Anabaptist seatbelt use: always ROS ROS ED Constitutional Constitutional ED: Denies chills or fever(s) ENT ENT ED: Denies sore throat Cardiovascular Cardiovascular: Denies chest pain Respiratory/Chest Respiratory/Chest: Denies cough or dyspnea Gastrointestinal Gastrointestinal: Reports abdominal pain, nausea and vomiting; Denies diarrhea Genitourinary Genitourinary ED: Denies dysuria Musculoskeletal Musculoskeletal: Denies myalgias Integumentary Denies rash Neurologic Neurologic: Denies headache(s) Hematologic/Lymphatic Hematologic/Lymphatic: Denies easy bleeding or easy bruising EXAM Physical Exam Const Vital Signs: 01/07/24 02:54 01/07/24 05:00 01/07/24 07:00 Temperature 97.7 F L Temperature Source Oral Pulse Rate 103 H 90 99 Respiratory Rate 20 H 18 18 Blood Pressure 151/83 H 137/95 H 137/88 H Blood Pressure Mean 105 109 104 Pulse Ox 96 98 Oxygen Delivery Method Room Air Positive well nourished and well developed General Appearance ED: well developed; Negative for pallor HEENT Reports moist mucous membranes HEENT Narrative: No tongue or lip swelling no oral lesions no airway edema or compromise No secondary findings in the posterior pharynx to suggest infection Eyes PERRL and EOMs intact bilaterally General Eye ED: Negative for scleral icterus Neck supple Resp normal respiratory effort and clear to auscultation bilaterally Cardio regular rate and regular rhythm Rate: other Other Details: Radial and carotid pulses are equal and symmetric GI non-distended GI Narrative: Abdomen is soft and nondistended with normal active bowel sounds. Patient has pain on palpation in the midepigastric region without voluntary guarding or rigidity. No pulsatile mass or fluid wave Auscultation: normoactive bowel sounds Palpation: soft Back/Spine no CVA tenderness Extremity normal to inspection Neuro oriented x3, CN's II-XII intact bilaterally and no sensory deficits noted Sensorium / Orientation: alert Motor Exam: strength 5/5 throughout Psych mental status grossly normal Skin no rashes or lesions noted General Skin Exam: Negative for jaundice or pallor MDM MDM MDM Narrative Medical decision making narrative: Patient arrived to the ER mildly hypertensive otherwise with stable vitals. He reported abdominal pain and has a history of recurrent pancreatitis. Differential diagnosis is for pancreatitis versus biliary colic versus acute cholecystitis versus gastritis versus alcohol intoxication. Basic lab work was obtained which showed mildly elevated white count at 15 but chart review reveals that his white count is repeatedly elevated. Patient's liver enzymes are normal going against biliary colic or acute cholecystitis. His alcohol level is greatly elevated at 240 consistent with alcohol abuse and intoxication which is most likely led to his symptoms. The patient's lipase cannot be obtained at this time as lab has reagents. I discussed obtaining a CT scan of his abdomen based on his slightly elevated white count and pain check for pancreatic inflammation the patient does not want one obtained at this time. Patient was hydrated and treated with Dilaudid and Benadryl and Zofran for his pain and nausea. On reevaluation he states symptoms have improved slightly but not to the extent that he is used to after being treated for a pancreatic flare. Therefore based on the elevation to his white blood cell count and report the pain is not responding as he normally does a CT scan of the abdomen pelvis with IV contrast was obtained. CT scan showed inflammation around the pancreas consistent with acute on chronic pancreatitis. At this time based on the patient's increased alcohol use and the fact he now has CT scan findings of inflammation on the pancreas and persistent pain I do feel he would benefit from inpatient treatment. Therefore the case was discussed with medicine on-call and they do agree to accept the patient at this time History & Record Review Discussion w/independent historian: Patient Lab Data Attestation: I reviewed the patient's lab results. Labs: Laboratory Results - last 24 hr 01/07/24 03:35 WBC 15.5 H RBC 4.24 L Hgb 13.5 Hct 38.6 L MCV 91.0 MCH 31.8 MCHC 35.0 RDW Std Deviation 39.8 RDW Coeff of Armin 11.9 Plt Count 191 MPV 9.3 Immature Gran % (Auto) 0.400 Neut % (Auto) 68.3 Lymph % (Auto) 24.4 Bond % (Auto) 5.2 Eos % (Auto) 1.4 Baso % (Auto) 0.3 Absolute Neuts (auto) 10.6 H Absolute Lymphs (auto) 3.77 Nucleated RBC % 0 Sodium 127 L Potassium 3.2 L Chloride 93 L Carbon Dioxide 19.0 L Anion Gap 15 BUN 13 Creatinine 1.18 Estim Creat Clear Calc 74.18 Est GFR (MDRD) Af Amer 81 Est GFR (MDRD) Non-Af 67 BUN/Creatinine Ratio 11.0 Glucose 262 H Calcium 8.9 Total Bilirubin 0.50 Direct Bilirubin 0.15 AST 18 ALT 19 Alkaline Phosphatase 63 Total Protein 7.5 Albumin 4.0 Globulin 3.5 Lipase Ethyl Alcohol 240.0 Management Discussion w/another healthcare provider: Hospitalist Discharge Plan Triage Chief Complaint: Abd Pain ED Provider: Phillip Aguiar Dx/Rx/DC Orders Clinical Impression: Alcohol abuse, Acute on chronic pancreatitis, Essential (primary) hypertension, Hyponatremia Prescriptions: New ondansetron 4 mg tablet,disintegrating 4 mg PO TID PRN (Reason: nausea and vomiting) Qty: 21 0RF oxycodone-acetaminophen [Percocet] 5-325 mg tablet 1 tab PO Q6H PRN (Reason: pain) 3 Days Qty: 12 0RF No Action amitriptyline 25 mg tablet 25 mg PO QHS gabapentin 300 mg capsule 300 mg PO BID levocarnitine 330 mg tablet 660 mg PO BID Qty: 120 7RF Rx Instructions: must administer with a meal/food cholecalciferol (vitamin D3) 5,000 capsule 1 cap PO DAILY pravastatin 40 mg Tablet 20 mg PO QHS metformin 500 MG tablet 500 mg PO BID Qty: 0 0RF Hold Instructions: Hold for 3 days aspirin 81 mg Tablet,Delayed Release (Dr/Ec) 81 mg PO DAILY losartan 25 mg tablet 25 mg PO DAILY escitalopram oxalate 10 mg tablet 10 mg PO DAILY loratadine 10 MG capsule 10 mg PO DAILY pantoprazole [Protonix] 40 mg tablet,delayed release (DR/EC) 40 mg PO DAILY Qty: 30 0RF diphenhydramine HCl [Benadryl] 25 mg capsule 25 mg PO TID PRN (Reason: allergy symptoms) Qty: 30 0RF oxycodone-acetaminophen [Percocet] 5-325 mg tablet 1 tab PO Q8H PRN (Reason: pain) 3 Days Qty: 10 0RF oxycodone-acetaminophen [Percocet] 5-325 mg tablet 1 tab PO Q6H PRN (Reason: pain) 3 Days Qty: 12 0RF ondansetron 4 mg tablet,disintegrating 4 mg PO Q6H PRN (Reason: nausea and vomiting) Qty: 12 0RF hydrochlorothiazide 25 mg tablet 25 mg PO DAILY Qty: 30 11RF Hold Instructions: Hold for 3 days and start with 12.5 mg, half tablet daily. amlodipine 10 mg tablet 10 mg PO DAILY Qty: 90 3RF ursodiol 250 mg tablet 250 mg PO BID Qty: 180 1RF Primary Care Provider: Lobito Maldonado Referrals: Lobito Maldonado MD [Primary Care Provider] - Disposition Disposition: Acute Care Hospital [facility]
[2024-01-07 03:42] LABS: Absolute Lymphocyte Count 3.77 X10^3/uL (0.83-4.51); Absolute Neutrophil Count 10.6 X10^3/uL (2.0-7.7); Basophil# 0.05 X10^3/uL; Basophil% 0.3 % (0-1); Eosinophil# 0.21 X10^3/uL; Eosinophils% 1.4 % (0-5); Hematocrit 38.6 % (40-54); Hemoglobin 13.5 g/dL (13.0-16.5); Lymphocyte # 3.77 X10^3/ul (0.83-4.51); Lymphocyte % 24.4 % (19-41); Mean Corpuscular Hgb 31.8 pg (27.0-32.0); Mean Platelet Vol. 9.3 fl (6.2-12.0); Monocyte% 5.2 % (0-10); NRBC Flagged by Analyzer 0 % (0-5); Neutrophil # 10.58 X10^3/uL (2.7-7.7); Neutrophil % 68.3 % (47-70); Platelet Count 191 K/mm3 (150-450); RBC Distribution Width CV 11.9 % (11.6-14.6); RBC Distribution Width SD 39.8 fl (35.1-43.9); Red Blood Count 4.24 M/mm3 (4.6-6.2); White Blood Count 15.5 K/mm3 (4.4-11.0)
[2024-01-07 04:22] LABS: AST(SGOT) 18 U/L (15-37); Alanine Aminotransfer ALT/SGPT 19 U/L (16-61); Alkaline Phosphatase 63 U/L (45-117); Anion Gap 15 (5-15); BUN 13 mg/dL (7-18); Bilirubin, Direct 0.15 mg/dL (0.00-0.30); Calcium,Total 8.9 mg/dL (8.5-10.1); Chloride 93 mmol/L (98-107); Creatinine, Serum 1.18 mg/dL (0.70-1.30); EST Glomerular Filtration Rate 67 mL/min (>60); Est Glom Filt Rate - Afr Amer 81 mL/min (>60); Estimated Creatinine Clearance 74.18 ml/min; Globulin 3.5 g/dL (2.2-4.2); Glucose 262 mg/dL (74-106); Potassium 3.2 mmol/L (3.5-5.1); Protein, Total 7.5 g/dL (6.4-8.2); Sodium Level 127 mmol/L (136-145)
[2024-01-07] MEDS: DiphenhydrAMINE 50 MG/ML Syringe 12.5 MG IV (04:54)
[2024-01-07] MEDS: Famotidine 200 MG/20 ML MDV 20 MG in 0.9% Normal Saline (Pres. free 8 ML 300 MG IV (04:55)
--- NOTE | 2024-01-07 05:10 | CT_ITS ---
EXAM: CT ABDOMEN AND PELVIS WITH INTRAVENOUS CONTRAST CLINICAL INDICATION: abd pain TECHNIQUE: Helically acquired images were obtained of the abdomen and pelvis with intravenous contrast. This CT exam was performed using one or more of the following dose reduction techniques: automated exposure control, adjustment of the mA and/or kV according to patient size, and/or use of iterative reconstruction technique. CONTRAST: IV 100mL Isovue-370 RADIATION DOSE: CTDIvol = 12.84 mGy, DLP = 809.88 mGy-cm COMPARISON: October 10, 2023. FINDINGS: LOWER THORAX: Minimal changes in the lung bases likely minimal atelectasis or scarring. The heart is not fully included. No significant pericardial effusion. ABDOMEN: LIVER: Unremarkable. Homogeneous. No focal mass. GALLBLADDER AND BILE DUCTS: Cholecystectomy. Common duct 1 cm near the eliecer and mildly tapering to 7 mm distally, no filling defect. PANCREAS: There is mild-moderate hazy soft tissue stranding around the distal pancreas, presumed mild acute pancreatitis, no evidence of pancreas necrosis or acute loculated fluid collection. Mild hazy edema along the left proximal anterior pararenal fascial plane. No focal cystic or solid mass. SPLEEN: Unremarkable. Normal size without focal cystic or solid mass. ADRENALS: Unremarkable. No nodules. KIDNEYS AND URETERS: Left renal cyst again noted. Tiny right cortical renal cyst again noted. Normal renal size and position. No hydronephrosis. STOMACH AND BOWEL: Moderate stool in much of the proximal half to two thirds of the colon. Moderate gas in the redundant sigmoid, mild gas in the rectum. Mild diverticulosis of the transverse colon, no evidence of acute diverticulitis. No stomach or bowel distention. PELVIS: APPENDIX: Mildly high and anterior location of cecum. Normal appendix is seen on coronal images. BLADDER: Unremarkable. REPRODUCTIVE: Mild fullness of the prostate, 5.8 cm transverse. ABDOMEN and PELVIS: INTRAPERITONEAL SPACE: Trace intrapelvic fluid. No free air. BONES/JOINTS: Unremarkable. No suspicious lytic or blastic abnormality. SOFT TISSUES: See above. VASCULATURE: Patent main portal vein. Abdominal aorta is non-dilated. LYMPH NODES: Unremarkable. No enlarged lymph nodes. CT/Abdomen/Pelvis W IV Cont ONLY IMPRESSION: 1. Mild acute pancreatitis. No acute fluid collections or visible pancreas necrosis. 2. Cholecystectomy. Minimally prominent common duct, stable.. 3. Mild prostatomegaly. Electronically Signed: Jacklyn Dougherty MD at 8:00 EDT ,
[2024-01-07] MEDS: MethylPREDNISolone 125 MG/2 ML Vial IV (05:22)
[2024-01-07] MEDS: 0.9% Normal Saline (1000mL) 1,000 ML 200 ML IV ×5 (08:03→22:03)
--- NOTE | 2024-01-07 08:15 | PCM.HP.STD ---
HPI - General General Date of Admission: 01/07/24 Date of Service: 01/07/24 Chief Complaint: Abdominal pain HPI Narrative BRANDON WELLER, is a 58 M who presents to the emergency room at [facility] with complaints of mid abdominal pain that started last night. Patient has had history of pancreatitis in the past, he was drinking alcohol. Patient is vague about how much he drinks on a daily basis. Patient's alcohol level is elevated when he was seen in the emergency room today. Workup in the emergency room included a CBC which showed an elevated white blood cell count, patient's lipase was not available due to lab difficulties, patient CT of the abdomen and pelvis showed evidence of pancreatitis which appeared to be mild. Patient was given IV Dilaudid in the emergency room for analgesia, he will be admitted to [facility] for acute recurrent pancreatitis, patient states to this examiner that he has never been through DTs before, I will place the patient on Ativan as needed for anxiety during his hospital stay. He told nursing that he does not want to go through detox program ice here in the hospital. [facility] Medical History Alcohol abuse Anxiety and depression Cancer Constipation Diabetes Essential (primary) hypertension Family history of cerebral aneurysm Former tobacco use Gastric ulcer GERD (gastroesophageal reflux disease) GI bleed Glaucoma Hyperlipidemia Liver fibrosis Myocardial infarct Neck pain Polyneuropathy PSA elevation PTSD (post-traumatic stress disorder) Seizure disorder Stroke/cerebrovascular accident TIA (transient ischemic attack) Vision loss of left eye Vision loss of right eye Home Medications amitriptyline 25 mg tablet 25 mg PO QHS depression 07/03/18 [History Last Taken 11/27/22] cholecalciferol (vitamin D3) 125 mcg (5,000 unit) capsule 1 cap PO DAILY supplement 11/09/18 [History Last Taken 11/28/22] hydrochlorothiazide 25 mg tablet 25 mg PO DAILY blood pressure/heart #30 tabs 06/05/20 [Rx Last Taken 11/28/22] gabapentin 300 mg capsule 300 mg PO BID nerve pain 10/06/20 [History Last Taken 11/28/22] pravastatin 40 mg tablet 20 mg PO QHS cholesterol 02/27/22 [History Last Taken 11/27/22] metformin 500 mg tablet 500 mg PO BID diabetes #0 tabs 03/04/22 [Rx Last Taken 11/28/22] aspirin 81 mg tablet,delayed release 81 mg PO DAILY heart health 07/04/22 [History Last Taken 11/28/22] escitalopram oxalate 10 mg tablet 10 mg PO DAILY depression 07/04/22 [History Last Taken 11/28/22] loratadine 10 mg capsule 10 mg PO DAILY allergies 07/04/22 [History Last Taken 11/28/22] losartan 25 mg tablet 25 mg PO DAILY blood pressure 07/04/22 [History Last Taken 11/28/22] amlodipine 10 mg tablet 10 mg PO DAILY blood pressure #90 tabs 06/26/23 [Rx Last Taken Unknown] ursodiol 250 mg tablet 250 mg PO BID liver fibrosis #180 tabs 08/21/23 [Rx Last Taken Unknown] diphenhydramine HCl 25 mg capsule (Benadryl) 25 mg PO TID PRN allergy symptoms #30 caps 10/10/23 [Rx Last Taken Unknown] pantoprazole 40 mg tablet,delayed release (Protonix) 40 mg PO DAILY #30 tabs 10/10/23 [Rx Last Taken Unknown] levocarnitine 330 mg tablet 660 mg (2 x 330 mg) PO BID #120 tabs 10/24/23 [Rx Last Taken Unknown] oxycodone-acetaminophen 5 mg-325 mg tablet (Percocet) 1 tab PO Q8H PRN pain 3 days #10 tabs 11/07/23 [Rx Last Taken Unknown] ondansetron 4 mg disintegrating tablet 4 mg PO Q6H PRN nausea and vomiting #12 tabs 11/20/23 [Rx Last Taken Unknown] oxycodone-acetaminophen 5 mg-325 mg tablet (Percocet) 1 tab PO Q6H PRN pain 3 days #12 tabs 11/20/23 [Rx Last Taken Unknown] ondansetron 4 mg disintegrating tablet 4 mg PO TID PRN nausea and vomiting #21 tabs 01/07/24 [Rx Last Taken Unknown] oxycodone-acetaminophen 5 mg-325 mg tablet (Percocet) 1 tab PO Q6H PRN pain 3 days #12 tabs 01/07/24 [Rx Last Taken Unknown] Allergy/AdvReac Type Severity Reaction Status Date / Time Iodinated Contrast Media Allergy Mild Rash Verified 11/20/23 11:13 hydromorphone [From Dilaudid] Allergy Itching Verified 11/20/23 11:13 lisinopril Allergy Angioedema Verified 11/20/23 11:13 cyclobenzaprine AdvReac Severe Skin Verified 11/20/23 11:13 crawling hydrocodone bitartrate AdvReac Itching Verified 11/20/23 11:13 [From Vicodin] morphine AdvReac Itching Verified 11/20/23 11:13 tramadol AdvReac Itching Verified 11/20/23 11:13 Family History Mother Heart disease Sister Cerebral aneurysm Father Diabetes Kidney disease Anxiety and depression Surgical History History of cholecystectomy (12/2013) History of left heart catheterization (10/31/11) Social History household members: none Smoking Status: Former smoker Tobacco: How many years used: 7 Electronic Cigarette Use: not used alcohol intake: former details: 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 substance use type: does not use caffeine: No robbin/moravian: Latter Day seatbelt use: always ROS Constitutional Constitutional: Denies anorexia, change in weight, fever(s), night sweats or weakness Eyes Eyes: Denies blurry vision, change in vision, discharge from eye(s) or eye pain Cardiovascular Cardiovascular: Denies chest pain, claudication, edema or palpitations Respiratory/Chest Respiratory/Chest: Denies cough, hemoptysis, shortness of breath at rest or shortness of breath with exertion Gastrointestinal Gastrointestinal: Reports abdominal pain; Denies constipation, diarrhea, hematemesis, hematochezia, melena, nausea or vomiting Genitourinary Genitourinary: Denies dysuria, hematuria, urinary frequency, urinary hesitancy, urinary incontinence or urinary urgency Musculoskeletal Musculoskeletal: Denies back pain, joint pain, joint stiffness, joint swelling, myalgias or neck pain Neurologic Neurologic: Denies abnormal gait, abnormal speech, dizziness, focal weakness, headache(s), loss of vision, numbness, other visual disturbances, paresthesias, syncope or tingling Psychiatric Psychiatric: Denies anxiety, cognitive impairment, depression, irritability, mood swings or suicidal ideation Endocrine Endocrinology: Denies change in body appearance, cold intolerance, excessive sweating, heat intolerance, polydipsia or polyuria Hematologic/Lymphatic Hematologic/Lymphatic: Denies none, anemia, easy bleeding, easy bruising or lymphadenopathy Allergic/Immunologic Allergic/Immunologic: Denies rhinitis, urticaria, eczemia or asthma Vital Signs Vital Signs Vital Signs: 01/07/24 02:54 01/07/24 05:00 01/07/24 07:00 Temperature 97.7 F L Temperature Source Oral Pulse Rate 103 H 90 99 Respiratory Rate 20 H 18 18 Blood Pressure 151/83 H 137/95 H 137/88 H Blood Pressure Mean 105 109 104 Pulse Ox 96 98 Oxygen Delivery Method Room Air 01/07/24 08:01 Temperature 98.9 F Temperature Source Pulse Rate 94 Respiratory Rate 18 Blood Pressure 130/81 H Blood Pressure Mean 97 Pulse Ox 97 Oxygen Delivery Method Weight Weight: 86.1 kg Body Mass Index (BMI) 28.0 Physical Exam Const alert, oriented x3 and healthy appearing Constitutional Narrative: Patient appears in moderate abdominal pain General Appearance: cooperative, well kempt and well developed Orientation / Consciousness: awake, oriented to person, oriented to place and oriented to time HEENT normocephalic, head/scalp atraumatic and moist oral mucous membranes Eyes PERRL, EOMs intact bilaterally and conjunctivae normal Neck supple, no JVD, thyroid normal and no carotid bruits General: trachea midline Resp normal respiratory effort, no retractions, no use of accessory muscles and clear to auscultation bilaterally Auscultation: Negative for rales, rhonchi or wheezes Cardio regular rate, regular rhythm, S1 normal heart sound, S2 normal heart sound, no murmurs, no rub and no gallops GI non-tender GI Narrative: Abdomen is nondistended, it is tender across the entire upper abdomen, no rebound tenderness was noted Auscultation: hypoactive bowel sounds Extremity no clubbing, cyanosis or edema Skin no rashes or lesions noted General Skin Exam: no breakdown Neuro oriented x3, CN's II-XII intact bilaterally, no focal motor deficits and no sensory deficits noted Sensorium / Orientation: awake, alert, oriented to person, oriented to place and oriented to time Speech: speech normal Psych affect normal Results Lab / Micro Data 01/07/24 03:35 01/07/24 03:35 Labs: Laboratory Results - last 24 hr 01/07/24 03:35: WBC 15.5 H, RBC 4.24 L, Hgb 13.5, Hct 38.6 L, MCV 91.0, MCH 31.8, MCHC 35.0, RDW Std Deviation 39.8, RDW Coeff of Armin 11.9, Plt Count 191, MPV 9.3, Immature Gran % (Auto) 0.400, Neut % (Auto) 68.3, Lymph % (Auto) 24.4, [place] % (Auto) 5.2, Eos % (Auto) 1.4, Baso % (Auto) 0.3, Absolute Neuts (auto) 10.6 H, Absolute Lymphs (auto) 3.77, Nucleated RBC % 0, Sodium 127 L, Potassium 3.2 L, Chloride 93 L, Carbon Dioxide 19.0 L, Anion Gap 15, BUN 13, Creatinine 1.18, Estim Creat Clear Calc 74.18, Est GFR (MDRD) Af Amer 81, Est GFR (MDRD) Non-Af 67, BUN/Creatinine Ratio 11.0, Glucose 262 H, Calcium 8.9, Total Bilirubin 0.50, Direct Bilirubin 0.15, AST 18, ALT 19, Alkaline Phosphatase 63, Total Protein 7.5, Albumin 4.0, Globulin 3.5, Lipase , Ethyl Alcohol 240.0 Imaging Radiology Impression Abdomen/Pelvis CT 01/07/24 05:10 IMPRESSION: 1. Mild acute pancreatitis. No acute fluid collections or visible pancreas necrosis. 2. Cholecystectomy. Minimally prominent common duct, stable.. 3. Mild prostatomegaly. Electronically Signed: Jacklyn Dougherty MD at 8:00 EDT , Assessment & Plan Assessment/Plan (1) Acute on chronic pancreatitis: PLAN: Plan 1. Acute recurrent pancreatitis-patient will be admitted to [facility], IV fluids will be administered, IV analgesics will be given, labs will be monitored #2 type 2 diabetes-blood sugars will be monitored, patient states he is taking 14 units of Lantus nightly, I will leave this off due to his clear liquid status, sliding scale insulin will be instituted #3 essential hypertension-patient will remain on his blood pressure medications except for hydrochlorothiazide, blood pressure will be monitored, adjustments will be made in his medications as needed #4 chronic alcohol abuse-again patient does not want to go through any detox program here, I will place him on Ativan 2 mg every 6 hours as needed for anxiety, I do not feel at this time he needs CIWA scores, I have notified nursing that if things change I will institute CIWA scores. #5 seizure disorder-patient is currently on gabapentin, I do not see any other seizure medications listed on his med list. He will continue gabapentin. Total clinical time spent by myself addressing patient's medical issues, reviewing all of his data, and collaborating with patient's care team: 75 minutes Charges/Coding Visit Charges Inpatient E&M: 30428 Init Hosp L3
[2024-01-07] MEDS: Aspirin E.C. 81 MG Tablet PO (09:33)
[2024-01-07] MEDS: Losartan Potassium 25 MG Tablet PO (09:33)
[2024-01-07] MEDS: Heparin Injection (Vial) 5,000 UNIT/ML VIAL 5000 UNIT SC ×2 (09:33→20:42)
[2024-01-07] MEDS: Escitalopram Oxalate 10 MG Tablet PO (09:34)
[2024-01-07] MEDS: amLODIPine 10 MG Tablet PO (09:34)
[2024-01-07] MEDS: Cholecalciferol (Vit D3) 125 MCG CAPSULE (5,000 UNITS) PO (09:34)
[2024-01-07] MEDS: Pantoprazole Sodium 40 MG Tablet PO (09:34)
[2024-01-07] MEDS: Gabapentin 300 MG Capsule PO ×2 (09:38→22:05)
[2024-01-07] MEDS: Insulin Lispro 100 UNIT/ML INSULN.PEN SC ×3 (11:24→20:41)
[2024-01-07] MEDS: 0.9% Saline Lock 10 ML Syringe IV ×4 (11:30→22:25)
[2024-01-07 11:38] LABS: Bedside Glucose 318 mg/dL (74-106)
[2024-01-07 16:50] LABS: Bedside Glucose 242 mg/dL (74-106)
[2024-01-07] MEDS: Tamsulosin HCl 0.4 MG Capsule PO (17:24)
[2024-01-07 21:23] LABS: Bedside Glucose 233 mg/dL (74-106)
[2024-01-07] MEDS: Amitriptyline 25 MG Tablet PO (22:03)
[2024-01-07] MEDS: Pravastatin 20 MG Tablet PO (22:03)
[2024-01-08] MEDS: hydrOXYzine 50 MG/ML Vial 100 MG IM (01:18)
[2024-01-08] MEDS: 0.9% Normal Saline (1000mL) 1,000 ML 200 ML IV ×2 (02:51→07:40)
[2024-01-08 03:15] VITALS: BP 137/73; PULSE 96; RESP 16; RESP 18; TEMP 36.3; O2SAT 97
[2024-01-08 05:53] LABS: Absolute Lymphocyte Count 1.77 X10^3/uL (0.83-4.51); Absolute Neutrophil Count 9.3 X10^3/uL (2.0-7.7); Basophil# 0.01 X10^3/uL; Basophil% 0.1 % (0-1); Hematocrit 36.2 % (40-54); Hemoglobin 12.4 g/dL (13.0-16.5); Lymphocyte # 1.77 X10^3/ul (0.83-4.51); Lymphocyte % 14.6 % (19-41); Mean Corp Hgb Conc 34.3 g/dL (32-36); Mean Corpuscular Hgb 31.5 pg (27.0-32.0); Mean Corpuscular Volume 91.9 fL (80-94); Mean Platelet Vol. 9.9 fl (6.2-12.0); Monocyte# 0.97 X10^3/uL; NRBC Flagged by Analyzer 0 % (0-5); Neutrophil # 9.29 X10^3/uL (2.7-7.7); Neutrophil % 76.7 % (47-70); Platelet Count 161 K/mm3 (150-450); RBC Distribution Width SD 40.5 fl (35.1-43.9); Red Blood Count 3.94 M/mm3 (4.6-6.2); White Blood Count 12.1 K/mm3 (4.4-11.0)
[2024-01-08] MEDS: Insulin Lispro 100 UNIT/ML INSULN.PEN SC ×2 (06:20→11:35)
[2024-01-08] MEDS: HYDROmorphone 1 MG/ML Syringe IV ×2 (06:20→11:30)
[2024-01-08] MEDS: 0.9% Saline Lock 10 ML Syringe IV (06:22)
[2024-01-08 06:29] LABS: Bedside Glucose 190 mg/dL (74-106)
[2024-01-08 06:32] LABS: ALB/GLOB Ratio 1.3 RATIO (0.9-2.4); AST(SGOT) 22 U/L (15-37); Alanine Aminotransfer ALT/SGPT 18 U/L (16-61); Albumin, Serum 4.1 g/dL (3.2-5.0); Alkaline Phosphatase 61 U/L (45-117); Anion Gap 7 (5-15); BUN 10 mg/dL (7-18); BUN/Creat Ratio 12.4 RATIO (10-20); Calcium,Total 8.7 mg/dL (8.5-10.1); Chloride 105 mmol/L (98-107); EST Glomerular Filtration Rate 105 mL/min (>60); Est Glom Filt Rate - Afr Amer 126 mL/min (>60); Estimated Creatinine Clearance 103.92 ml/min; Globulin 3.2 g/dL (2.2-4.2); Glucose 183 mg/dL (74-106); Potassium 4.2 mmol/L (3.5-5.1); Protein, Total 7.3 g/dL (6.4-8.2); Sodium Level 136 mmol/L (136-145)
[2024-01-08] MEDS: Gabapentin 300 MG Capsule PO (08:06)
[2024-01-08] MEDS: DiphenhydrAMINE 25 MG Capsule 50 MG PO (08:06)
[2024-01-08] MEDS: Aspirin E.C. 81 MG Tablet PO (08:08)
[2024-01-08] MEDS: Losartan Potassium 25 MG Tablet PO (08:08)
[2024-01-08] MEDS: Escitalopram Oxalate 10 MG Tablet PO (08:08)
[2024-01-08] MEDS: Cholecalciferol (Vit D3) 125 MCG CAPSULE (5,000 UNITS) PO (08:09)
[2024-01-08] MEDS: Pantoprazole Sodium 40 MG Tablet PO (08:09)
[2024-01-08] MEDS: amLODIPine 10 MG Tablet PO (08:09)
[2024-01-08 08:10] VITALS: BP 131/85; PULSE 91; RESP 15; TEMP 36.6; O2SAT 96
--- NOTE | 2024-01-08 10:22 | PCM.DC.SUM ---
Providers Date of Admission: 01/07/24 Date of Discharge: 01/08/24 Primary Care Physician: Dr. Lobito Maldonado MD Reason For Visit: PANCREATITIS Diagnosis Discharge Diagnosis (1) Acute on chronic pancreatitis: Status: Chronic Code(s): K85.90 - Acute pancreatitis without necrosis or infection, unspecified; K86.1 - Other chronic pancreatitis Medications at Discharge Home Medications amitriptyline 25 mg tablet 25 mg PO QHS depression 07/03/18 cholecalciferol (vitamin D3) 125 mcg (5,000 unit) capsule 1 cap PO DAILY supplement 11/09/18 hydrochlorothiazide 25 mg tablet 25 mg PO DAILY blood pressure/heart #30 tabs 06/05/20 gabapentin 300 mg capsule 300 mg PO BID nerve pain 10/06/20 pravastatin 40 mg tablet 20 mg PO QHS cholesterol 02/27/22 metformin 500 mg tablet 500 mg PO BID diabetes #0 tabs 03/04/22 aspirin 81 mg tablet,delayed release 81 mg PO DAILY heart health 07/04/22 escitalopram oxalate 10 mg tablet 10 mg PO DAILY depression 07/04/22 loratadine 10 mg capsule 10 mg PO DAILY allergies 07/04/22 losartan 25 mg tablet 25 mg PO DAILY blood pressure 07/04/22 amlodipine 10 mg tablet 10 mg PO DAILY blood pressure #90 tabs 06/26/23 ursodiol 250 mg tablet 250 mg PO BID liver fibrosis #180 tabs 08/21/23 diphenhydramine HCl 25 mg capsule (Benadryl) 25 mg PO TID PRN allergy symptoms #30 caps 10/10/23 pantoprazole 40 mg tablet,delayed release (Protonix) 40 mg PO DAILY #30 tabs 10/10/23 levocarnitine 330 mg tablet 660 mg (2 x 330 mg) PO BID #120 tabs 10/24/23 ondansetron 4 mg disintegrating tablet 4 mg PO Q6H PRN nausea and vomiting #12 tabs 11/20/23 ondansetron 4 mg disintegrating tablet 4 mg PO TID PRN nausea and vomiting #21 tabs 01/07/24 diphenhydramine HCl 25 mg capsule (Benadryl) 25 mg PO TID PRN itching #20 caps 01/08/24 oxycodone 5 mg capsule 5 mg PO Q6H PRN pain 5 days #20 caps 01/08/24 pantoprazole 40 mg tablet,delayed release (Protonix) 40 mg PO DAILY #30 tabs 01/08/24 tamsulosin 0.4 mg capsule 0.4 mg PO DAILY@1730 30 days #30 [facility] 01/08/24 Hospital Course Summary of Care Provided Minutes Spent on Discharge: 32 Hospital Course: Patient is a 58-year-old with history of chronic alcohol dependence presented with abdominal pain and assessment of acute on chronic pancreatitis made 1. Acute recurrent pancreatitis ? Admitted to regular nursing floor for symptom management 2. Chronic alcohol dependence ? Patient admitted to having had alcohol 2 days prior to his admission he was counseled on cessation he was offered to undergo medical stabilization with phenobarb taper he declined 3. Diabetes mellitus type 2 I did continue home medications 4. Seizure disorder ? Patient is on gabapentin discontinued 5. Hypertension - Blood pressure controlled, home medications continued with dose adjustment as needed 6. Depression ? Patient is on amitriptyline as well as escitalopram did continue Physical Exam Narrative GENERAL: cooperative HEENT: Atraumatic; normocephalic EYES; Anicteric, Normal Conjunctiva NECK; supple, normal thyroid, RESPIRATORY: Diminished to auscultation CARDIOVASCULAR: Regular S1 S2, GI: soft, normoactive bowel sounds, : No Renal angle tenderness; EXTREMITIES: No edema, no clubbing, MUSCULOSKELETAL: no muscle wasting NEURO: Awake; no lateralizing signs. SKIN: No Rash PSYCH; Flat affect Weight / BMI Weight Weight: 84.2 kg Body Mass Index (BMI) 26.6 ABG / Lab / Microbiology Data 01/08/24 04:36 01/08/24 04:36 Laboratory: Laboratory Results - last 24 hr 01/07/24 11:21: POC Glucose 318 H 01/07/24 16:20: POC Glucose 242 H 01/07/24 20:35: POC Glucose 233 H 01/08/24 04:36: WBC 12.1 H, RBC 3.94 L, Hgb 12.4 L, Hct 36.2 L, MCV 91.9, MCH 31.5, MCHC 34.3, RDW Std Deviation 40.5, RDW Coeff of Armin 12.0, Plt Count 161, MPV 9.9, Immature Gran % (Auto) 0.600, Neut % (Auto) 76.7 H, Lymph % (Auto) 14.6 L, [place] % (Auto) 8.0, Eos % (Auto) 0.0, Baso % (Auto) 0.1, Absolute Neuts (auto) 9.3 H, Absolute Lymphs (auto) 1.77, Nucleated RBC % 0, Sodium 136, Potassium 4.2, Chloride 105, Carbon Dioxide 24.0, Anion Gap 7, BUN 10, Creatinine 0.80, Estim Creat Clear Calc 103.92, Est GFR (MDRD) Af Amer 126, Est GFR (MDRD) Non-Af 105, BUN/Creatinine Ratio 12.4, Glucose 183 H, Calcium 8.7, Total Bilirubin 0.90, AST 22, ALT 18, Alkaline Phosphatase 61, Total Protein 7.3, Albumin 4.1, Globulin 3.2, Albumin/Globulin Ratio 1.3 01/08/24 06:10: POC Glucose 190 H D/C Instructions Discharge Diet: 1800 Calorie Control Diet Discharge Activity: May Not Drive Call your doctor if you observe: Fever of 101 or Higher, Shortness of breath, Fainting spells and Chest pain Meaningful Use Info Meaningful Use Diagnoses (Choose all that apply): None applicable Discharge Plan Admission Admit Date/Time: 01/07/24 07:40 Attending Provider: Mg Patel Primary Care Provider: Lobito Maldonado Consulting Providers: Americo Ayala Discharge Orders/Prescriptions Prescriptions: New ondansetron 4 mg tablet,disintegrating 4 mg PO TID PRN (Reason: nausea and vomiting) Qty: 21 0RF tamsulosin 0.4 mg Capsule 0.4 mg PO DAILY@1730 30 Days Qty: 30 0RF oxycodone 5 mg capsule 5 mg PO Q6H PRN (Reason: pain) 5 Days Qty: 20 0RF diphenhydramine HCl [Benadryl] 25 mg capsule 25 mg PO TID PRN (Reason: itching) Qty: 20 0RF pantoprazole [Protonix] 40 mg tablet,delayed release (DR/EC) 40 mg PO DAILY Qty: 30 0RF Continued amitriptyline 25 mg tablet 25 mg PO QHS gabapentin 300 mg capsule 300 mg PO BID levocarnitine 330 mg tablet 660 mg PO BID Qty: 120 7RF Rx Instructions: must administer with a meal/food cholecalciferol (vitamin D3) 5,000 capsule 1 cap PO DAILY pravastatin 40 mg Tablet 20 mg PO QHS metformin 500 MG tablet 500 mg PO BID Qty: 0 0RF Hold Instructions: Hold for 3 days aspirin 81 mg Tablet,Delayed Release (Dr/Ec) 81 mg PO DAILY losartan 25 mg tablet 25 mg PO DAILY escitalopram oxalate 10 mg tablet 10 mg PO DAILY loratadine 10 MG capsule 10 mg PO DAILY pantoprazole [Protonix] 40 mg tablet,delayed release (DR/EC) 40 mg PO DAILY Qty: 30 0RF diphenhydramine HCl [Benadryl] 25 mg capsule 25 mg PO TID PRN (Reason: allergy symptoms) Qty: 30 0RF ondansetron 4 mg tablet,disintegrating 4 mg PO Q6H PRN (Reason: nausea and vomiting) Qty: 12 0RF hydrochlorothiazide 25 mg tablet 25 mg PO DAILY Qty: 30 11RF Hold Instructions: Hold for 3 days and start with 12.5 mg, half tablet daily. amlodipine 10 mg tablet 10 mg PO DAILY Qty: 90 3RF ursodiol 250 mg tablet 250 mg PO BID Qty: 180 1RF Referrals / Follow Up: Lobito Maldonado MD [Primary Care Provider] - In 1 Week Disposition Disposition (needs filled in before D/C Order can be placed): Home, Self Care Charges/Coding Visit Charges Inpatient E&M: 76688 Disch Hosp >30min
--- NOTE | 2024-01-08 11:25 | CASEMGMT ---
UZMA BAKER Assessment: UZMA BAKER to room to meet with pt for initial transition planning/care coordination assessment. UZMA BAKER introduced self and role at [facility], pt voices understanding and consents to assessment. Pt is A/O and answers all questions appropriately at this time. Pt resting in bed in no distress. Care providers, pharmacy, and demographics verified/updated. PCP:Dr Maldonado Specialists:DR Santamaria, GI; Dr Burnett, neuro Preferred Pharmacy: [facility] Retail Insurance: My Care CRSC, CRSC Prescription Benefit: yes AD: Pt would like to complete. FRANKIE, Doris, made aware. LNOK: Lashay Ochoa, sister Living Arrangements: Pt lives alone in a single story apt with 5 steps to enter with a rail. Pt reports he is I in ADL's and denies concerns at home. Transportation: Pt uses provide a ride or a bus/public transportation. [facility] van transport has been arranged to take pt home today @ 2 PM. DME: Pt has a BGM with sufficient supplies, pox and medic alert. He also states he has all insulin/meds needed. HHC/SNF: No hx of either. Pt denies any needs for HHC and no needs identified. Pt has a [employer] blood bank manager, Estela. Pt denies having any concerns with going home. Pt states no further concerns/needs. Plan: Home Humza SUN RN, CM
--- NOTE | 2024-01-08 11:30 | CASEMGMT ---
RN SAMUEL said patient was interested in completing advance directives. FRANKIE met with patient. Introduced self and role at [facility]. Patient would like to do documents, however he does not have his sister's phone number or address with him at [facility]. FRANKIE provided patient with a Social Work rack card so patient can call and schedule an appt to do advance directives. Patient thanked FRANKIE. Doris Hatch ACETALDEHYDE CONVERTER OPERATOR DINESH
--- NOTE | 2024-01-08 12:02 | PHA.DC.MC.R ---
Pharmacy [facility] has performed discharge medication reconciliation and counseling for this patient. 1. OXYCODONE 5MG PO Q6H PRN PAIN 2. TAMSULOSIN 0.4MG PO DAILY The patient's discharge medication list was reviewed for discrepancies and discrepancies were resolved. The patient was counseled on the following discharge medications and changes in medications for homegoing were reviewed. The Reason for Use, instructions for use, and potential side effects were reviewed for all new medications. The patient's questions regarding all of their medications were answered. The patient was able to verbally demonstrate an understanding of their discharge medications. Medications at Discharge Home Medications amitriptyline 25 mg tablet 25 mg PO QHS depression 07/03/18 cholecalciferol (vitamin D3) 125 mcg (5,000 unit) capsule 1 cap PO DAILY supplement 11/09/18 hydrochlorothiazide 25 mg tablet 25 mg PO DAILY blood pressure/heart #30 tabs 06/05/20 gabapentin 300 mg capsule 300 mg PO BID nerve pain 10/06/20 pravastatin 40 mg tablet 20 mg PO QHS cholesterol 02/27/22 metformin 500 mg tablet 500 mg PO BID diabetes #0 tabs 03/04/22 aspirin 81 mg tablet,delayed release 81 mg PO DAILY heart health 07/04/22 escitalopram oxalate 10 mg tablet 10 mg PO DAILY depression 07/04/22 loratadine 10 mg capsule 10 mg PO DAILY allergies 07/04/22 losartan 25 mg tablet 25 mg PO DAILY blood pressure 07/04/22 amlodipine 10 mg tablet 10 mg PO DAILY blood pressure #90 tabs 06/26/23 ursodiol 250 mg tablet 250 mg PO BID liver fibrosis #180 tabs 08/21/23 diphenhydramine HCl 25 mg capsule (Benadryl) 25 mg PO TID PRN allergy symptoms #30 caps 10/10/23 levocarnitine 330 mg tablet 660 mg (2 x 330 mg) PO BID #120 tabs 10/24/23 ondansetron 4 mg disintegrating tablet 4 mg PO TID PRN nausea and vomiting #21 tabs 01/07/24 diphenhydramine HCl 25 mg capsule (Benadryl) 25 mg PO TID PRN itching #20 caps 01/08/24 oxycodone 5 mg capsule 5 mg PO Q6H PRN pain 5 days #20 caps 01/08/24 pantoprazole 40 mg tablet,delayed release (Protonix) 40 mg PO DAILY #30 tabs 01/08/24 tamsulosin 0.4 mg capsule 0.4 mg PO DAILY@1730 30 days #30 caps 01/08/24
[2024-01-08 12:08] LABS: Bedside Glucose 207 mg/dL (74-106)
--- NOTE | 2024-01-08 13:29 | CASEMGMT ---
Per RN CM patient was interested in completing Healthcare Power of Seafood Team Member and Healthcare Living Will. SW met with patient and assisted patient in completing documents. Copies were made and given to patient along with originals. A copy of each was also placed in patient's chart. Patient named his sister Lashay as his Healthcare Power of Seafood Team Member. Doris Hatch MSW DINESH
--- NOTE | 2024-01-08 15:58 | CHAPLAIN ---
Type of Pastoral Visit _x__ Initial Visit ___ Follow-up Visit ___ On-call Visit ___ General Patient Visit ___ Spiritual Assessment ___ Family Conference ___ Bereavement ___ Rapid Response ___ Code Blue ___ Other (describe below) Pastoral Care Referral From _x__ Patient ___ Family ___ Nurse ___ Physician ___ Dairy Equipment Specialist ___ Warper Creeler ___ Other (describe below) Sacrament/Intervention ___ Active listening ___ Anointing ___ Hoahaoism ___ Bereavement ___ Communion ___ Elsa exploration ___ ___ Life review ___ Prayer ___ Reconciliation ___ Sacrament of Sick _x__ Supportive presence ___ Wedding ___ Other (describe below) Pastoral Comments patient was already to leave after discharge is now complete; offer of any last support or needs to address and pt denies needs; gave pt well wishes and suportive words
== END 2024-01-08 13:45 | disposition home or self-care (01) | DRG 439 ==
LOC: ED 07:38 → PCU 07:55
PROVIDERS: Admitting Provider Internal Medicine; Emergency Provider Emergency Medicine; PCP Internal Medicine; Visit Provider Internal Medicine
DX: K85.90 Acute pancreatitis without necrosis or infection, unspecified (principal); E87.1 Hypo-osmolality and hyponatremia; E11.42 Type 2 diabetes mellitus with diabetic polyneuropathy; G40.909 Epilepsy, unspecified, not intractable, without status epilepticus; F10.229 Alcohol dependence with intoxication, unspecified; K86.1 Other chronic pancreatitis; I10 Essential (primary) hypertension; F32.A Depression, unspecified; E78.5 Hyperlipidemia, unspecified; I25.2 Old myocardial infarction; Y90.8 Blood alcohol level of 240 mg/100 ml or more; Z79.82 Long term (current) use of aspirin; Z79.84 Long term (current) use of oral hypoglycemic drugs; Z87.891 Personal history of nicotine dependence; Z86.73 Personal history of transient ischemic attack (TIA), and cerebral infarction without residual deficits
CPT/HCPCS: 36415; 74177; 80048; 80053; 80076; 80320; 82962; 83690; 85025; 99283; J7030; Q9967; A4216; G0480; J2405; J3490

== ENCOUNTER 2024-02-07 22:33 | Emergency (ER) | payer MEDICARE, MEDICAID, SELFPAY ==
[2024-02-07 22:34] VITALS: BP 129/83; PULSE 96; RESP 16; TEMP 36.1; O2SAT 96
[2024-02-07 23:13] VITALS: BP 147/95; PULSE 84; RESP 16; O2SAT 98
[2024-02-07] MEDS: DiphenhydrAMINE 50 MG/ML Syringe 25 MG IV (23:38)
[2024-02-07] MEDS: HYDROmorphone 1 MG/ML Syringe IV (23:38)
[2024-02-07] MEDS: 0.9% Normal Saline (1000mL) 1,000 ML 1000 ML IV (23:38)
[2024-02-07] MEDS: Ondansetron 4 MG/2 ML Vial IV (23:38)
[2024-02-07 23:39] LABS: Absolute Lymphocyte Count 3.21 X10^3/uL (0.83-4.51); Absolute Neutrophil Count 6.7 X10^3/uL (2.0-7.7); Basophil# 0.06 X10^3/uL; Basophil% 0.5 % (0-1); Eosinophil# 0.15 X10^3/uL; Eosinophils% 1.4 % (0-5); Hematocrit 39.4 % (40-54); Hemoglobin 13.1 g/dL (13.0-16.5); Lymphocyte # 3.21 X10^3/ul (0.83-4.51); Lymphocyte % 28.9 % (19-41); Mean Corp Hgb Conc 33.2 g/dL (32-36); Mean Corpuscular Hgb 31.3 pg (27.0-32.0); Mean Platelet Vol. 10.1 fl (6.2-12.0); Monocyte# 0.91 X10^3/uL; Monocyte% 8.2 % (0-10); NRBC Flagged by Analyzer 0 % (0-5); Neutrophil # 6.73 X10^3/uL (2.7-7.7); Neutrophil % 60.5 % (47-70); Platelet Count 202 K/mm3 (150-450); RBC Distribution Width CV 12.5 % (11.6-14.6); RBC Distribution Width SD 42.9 fl (35.1-43.9); Red Blood Count 4.19 M/mm3 (4.6-6.2); White Blood Count 11.1 K/mm3 (4.4-11.0)
[2024-02-07] MEDS: Pantoprazole Sodium 40 MG in 0.9% Normal Saline (100mL MB+) 100 ML 330 MG IV (23:56)
[2024-02-08 00:23] LABS: AST(SGOT) 6 U/L (15-37); Alanine Aminotransfer ALT/SGPT 13 U/L (16-61); Albumin, Serum 4.2 g/dL (3.2-5.0); Alkaline Phosphatase 86 U/L (45-117); Anion Gap 7 (5-15); BUN 22 mg/dL (7-18); BUN/Creat Ratio 17.6 RATIO (10-20); Bilirubin, Direct 0.21 mg/dL (0.00-0.30); Calcium,Total 10.2 mg/dL (8.5-10.1); Chloride 99 mmol/L (98-107); Creatinine, Serum 1.25 mg/dL (0.70-1.30); EST Glomerular Filtration Rate 63 mL/min (>60); Est Glom Filt Rate - Afr Amer 76 mL/min (>60); Globulin 3.6 g/dL (2.2-4.2); Glucose 429 mg/dL (74-106); Lipase 125 U/L (13-75); Potassium 4.1 mmol/L (3.5-5.1); Protein, Total 7.8 g/dL (6.4-8.2); Sodium Level 133 mmol/L (136-145)
[2024-02-08 01:00] VITALS: BP 149/71; PULSE 85; RESP 16; O2SAT 96
--- NOTE | 2024-02-08 01:21 | EX.ED.DYSGE1 ---
HPI History of Present Illness Chief Complaint: Abd Pain Informant: patient Onset/Context/Timing Onset: Hours Context: Gradual Onset Narrative Narrative: Patient presents secondary to epigastric abdominal pain with nausea and vomiting. He has a history of recurrent pancreatitis. He states about 6 PM this evening he ate some cereal and bananas. He then noted epigastric abdominal pain that worsened and led to vomiting. This is consistent with his prior bouts of pancreatitis. He has not had fever or chills. [facility] Medical History Liver fibrosis Myocardial infarct Stroke/cerebrovascular accident Alcohol abuse Vision loss of right eye Vision loss of left eye Cancer Neck pain PSA elevation GI bleed TIA (transient ischemic attack) Diabetes Family history of cerebral aneurysm Polyneuropathy Gastric ulcer GERD (gastroesophageal reflux disease) Former tobacco use Constipation Glaucoma Seizure disorder Hyperlipidemia PTSD (post-traumatic stress disorder) Anxiety and depression Essential (primary) hypertension Home Medications ?Medication ?Instructions ?Recorded ?Last Taken ?Type amitriptyline 25 mg tablet 25 mg PO QHS depression 07/03/18 01/06/24 History cholecalciferol (vitamin D3) 125 1 cap PO DAILY supplement 11/09/18 01/06/24 History mcg (5,000 unit) capsule hydrochlorothiazide 25 mg tablet 25 mg PO DAILY blood 06/05/20 01/06/24 Rx pressure/heart #30 tabs gabapentin 300 mg capsule 300 mg PO BID nerve pain 10/06/20 01/06/24 History pravastatin 40 mg tablet 20 mg PO QHS cholesterol 02/27/22 01/06/24 History metformin 500 mg tablet 500 mg PO BID diabetes #0 tabs 03/04/22 01/06/24 Rx aspirin 81 mg tablet,delayed 81 mg PO DAILY heart health 07/04/22 01/06/24 History release escitalopram oxalate 10 mg tablet 10 mg PO DAILY depression 07/04/22 01/06/24 History loratadine 10 mg capsule 10 mg PO DAILY allergies 07/04/22 01/06/24 History losartan 25 mg tablet 25 mg PO DAILY blood pressure 07/04/22 01/06/24 History amlodipine 10 mg tablet 10 mg PO DAILY blood pressure #90 06/26/23 01/06/24 Rx tabs diphenhydramine HCl 25 mg capsule 25 mg PO TID PRN allergy symptoms 10/10/23 Unknown Rx (Benadryl) #30 caps levocarnitine 330 mg tablet 660 mg (2 x 330 mg) PO BID #120 10/24/23 Unknown Rx tabs ondansetron 4 mg disintegrating 4 mg PO TID PRN nausea and 01/07/24 Unknown Rx tablet vomiting #21 tabs diphenhydramine HCl 25 mg capsule 25 mg PO TID PRN itching #20 caps 01/08/24 Unknown Rx (Benadryl) oxycodone 5 mg capsule 5 mg PO Q6H PRN pain 5 days #20 01/08/24 Unknown Rx caps pantoprazole 40 mg tablet,delayed 40 mg PO DAILY #30 tabs 01/08/24 Unknown Rx release (Protonix) tamsulosin 0.4 mg capsule 0.4 mg PO DAILY@1730 30 days #30 01/08/24 Unknown Rx caps ursodiol 250 mg tablet 250 mg PO BID #180 TABLETS 01/29/24 Unknown Rx ondansetron 4 mg disintegrating 4 mg PO Q8H PRN PRN Nausea #10 tabs 02/08/24 Unknown Rx tablet oxycodone 5 mg tablet 5 mg PO Q6H PRN pain 3 days #12 02/08/24 Unknown Rx tabs Allergy/AdvReac Type Severity Reaction Status Date / Time Iodinated Contrast Media Allergy Mild Rash Verified 02/07/24 23:27 hydromorphone (From Dilaudid) Allergy Itching Verified 02/07/24 23:27 lisinopril Allergy Angioedema Verified 02/07/24 23:27 cyclobenzaprine AdvReac Severe Skin Verified 02/07/24 23:27 crawling hydrocodone bitartrate (From AdvReac Itching Verified 02/07/24 23:27 Vicodin) morphine AdvReac Itching Verified 02/07/24 23:27 tramadol AdvReac Itching Verified 02/07/24 23:27 Family History Mother Heart disease Sister Cerebral aneurysm Father Diabetes Kidney disease Anxiety and depression Surgical History History of cholecystectomy (12/2013) History of left heart catheterization (10/31/11) Social History household members: none Smoking Status: Former smoker Tobacco: How many years used: 7 Electronic Cigarette Use: not used alcohol intake: former details: 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 substance use type: does not use caffeine: No robbin/adventism: Gnosticist seatbelt use: always ROS ROS ED Constitutional Constitutional ED: Denies chills or fever(s) Eyes Eyes: Denies discharge from eye(s) ENT ENT ED: Denies discharge from eye(s), rhinorrhea or sore throat Cardiovascular Cardiovascular: Denies chest pain or palpitations Respiratory/Chest Respiratory/Chest: Denies cough or dyspnea Gastrointestinal Gastrointestinal: Reports abdominal pain, nausea and vomiting; Denies diarrhea Genitourinary Genitourinary ED: Denies dysuria Musculoskeletal Musculoskeletal: Denies back pain or extremity pain Integumentary Denies Abrasions or rash Neurologic Neurologic: Denies headache(s) or weakness Psychiatric Psychiatric: Denies anxiety or depression Allergic/Immunologic Allergic/Immunologic ED: Denies lip swelling or urticaria EXAM Physical Exam Const Vital Signs: 02/07/24 22:34 02/07/24 23:13 Temperature 96.9 F L Temperature Source Temporal Pulse Rate 96 84 Respiratory Rate 16 16 Blood Pressure 129/83 H 147/95 H Blood Pressure Mean 98 112 Pulse Ox 96 98 Oxygen Delivery Method Room Air Room Air Positive well nourished and well developed General Appearance ED: well developed HEENT Reports moist mucous membranes Eyes EOMs intact bilaterally Chest Wall inspection of chest normal and palpation of chest normal Resp normal respiratory effort and clear to auscultation bilaterally Cardio regular rate and regular rhythm GI GI Narrative: Abdomen soft with focal tenderness in the epigastrium. No guarding or rebound. Extremity normal to inspection Neuro oriented x3 and no sensory deficits noted Motor Exam: strength 5/5 throughout Psych mental status grossly normal Skin no rashes or lesions noted MDM MDM MDM Narrative Medical decision making narrative: IV line established. Patient given IV fluids. Patient given Dilaudid and Benadryl along with Zofran and Protonix. Labwork obtained to evaluate for leukocytosis, anemia, and electrolyte derangement. History & Record Review Discussion w/independent historian: Patient Additional record(s) reviewed:: Prior inpatient record, Prior ED visit and Prior labs Lab Data Attestation: I reviewed the patient's lab results. Labs: Laboratory Results - last 24 hr 02/07/24 23:18 WBC 11.1 H RBC 4.19 L Hgb 13.1 Hct 39.4 L MCV 94.0 MCH 31.3 MCHC 33.2 RDW Std Deviation 42.9 RDW Coeff of Armin 12.5 Plt Count 202 MPV 10.1 Immature Gran % (Auto) 0.500 Neut % (Auto) 60.5 Lymph % (Auto) 28.9 [facility] % (Auto) 8.2 Eos % (Auto) 1.4 Baso % (Auto) 0.5 Absolute Neuts (auto) 6.7 Absolute Lymphs (auto) 3.21 Nucleated RBC % 0 Sodium 133 L Potassium 4.1 Chloride 99 Carbon Dioxide 27.0 Anion Gap 7 BUN 22 H Creatinine 1.25 Est GFR (MDRD) Af Amer 76 Est GFR (MDRD) Non-Af 63 BUN/Creatinine Ratio 17.6 Glucose 429 H Calcium 10.2 H Total Bilirubin 0.60 Direct Bilirubin 0.21 AST 6 L ALT 13 L Alkaline Phosphatase 86 Total Protein 7.8 Albumin 4.2 Globulin 3.6 Lipase 125 H Treatment and Re-Evaluation :: CBC was a white count 11.1 with normal differential. Hemoglobin is 13.1. Chemistry studies reveal a sodium of 133 and a chloride of 99. BUN is 22 and creatinine is 1.25. Glucose is elevated at 429. LFTs are unremarkable. Lipase is only slightly elevated at 125. On repeat evaluation patient resting more comfortably. He does report his symptoms are improved. I do feel that he caught this episode early enough that we can try treatment at home. His last prescription for oxycodone was in early December. I will write him a short course of oxycodone along with Zoan. He will follow bland diet. Return instructions provided. Discharge Plan Triage Chief Complaint: Abd Pain ED Provider: Toya Cedillo Dx/Rx/DC Orders Clinical Impression: Abdominal pain, acute, epigastric Instructions: ED Abdominal Pain Unkn Cause Male... Prescriptions: New oxycodone 5 mg tablet 5 mg PO Q6H PRN (Reason: pain) 3 Days Qty: 12 0RF ondansetron 4 mg tablet,disintegrating 4 mg PO Q8H PRN PRN (Reason: Nausea) Qty: 10 0RF No Action amitriptyline 25 mg tablet 25 mg PO QHS gabapentin 300 mg capsule 300 mg PO BID levocarnitine 330 mg tablet 660 mg PO BID Qty: 120 7RF Rx Instructions: must administer with a meal/food cholecalciferol (vitamin D3) 5,000 capsule 1 cap PO DAILY pravastatin 40 mg Tablet 20 mg PO QHS metformin 500 MG tablet 500 mg PO BID Qty: 0 0RF aspirin 81 mg Tablet,Delayed Release (Dr/Ec) 81 mg PO DAILY losartan 25 mg tablet 25 mg PO DAILY escitalopram oxalate 10 mg tablet 10 mg PO DAILY loratadine 10 MG capsule 10 mg PO DAILY diphenhydramine HCl [Benadryl] 25 mg capsule 25 mg PO TID PRN (Reason: allergy symptoms) Qty: 30 0RF ondansetron 4 mg tablet,disintegrating 4 mg PO TID PRN (Reason: nausea and vomiting) Qty: 21 0RF tamsulosin 0.4 mg Capsule 0.4 mg PO DAILY@1730 30 Days Qty: 30 0RF oxycodone 5 mg capsule 5 mg PO Q6H PRN (Reason: pain) 5 Days Qty: 20 0RF diphenhydramine HCl [Benadryl] 25 mg capsule 25 mg PO TID PRN (Reason: itching) Qty: 20 0RF pantoprazole [Protonix] 40 mg tablet,delayed release (DR/EC) 40 mg PO DAILY Qty: 30 0RF hydrochlorothiazide 25 mg tablet 25 mg PO DAILY Qty: 30 11RF amlodipine 10 mg tablet 10 mg PO DAILY Qty: 90 3RF ursodiol 250 mg tablet 250 mg PO BID Qty: 180 2RF Primary Care Provider: Lobito Maldonado Referrals: Lobito Maldonado MD [Primary Care Provider] - 1-2 Weeks Print Language: Lao Disposition Disposition: Home, Self Care
[2024-02-08 01:41] VITALS: BP 177/76; PULSE 87; RESP 16; TEMP 35.7; O2SAT 96
== END 2024-02-08 01:42 | disposition home or self-care (01) ==
PROVIDERS: Emergency Provider Emergency Medicine; PCP Internal Medicine; Visit Provider Emergency Medicine
DX: R10.13 Epigastric pain (principal); E11.9 Type 2 diabetes mellitus without complications; F10.10 Alcohol abuse, uncomplicated; Y90.9 Presence of alcohol in blood, level not specified; I10 Essential (primary) hypertension; I25.2 Old myocardial infarction; E78.5 Hyperlipidemia, unspecified; Z79.82 Long term (current) use of aspirin; Z79.84 Long term (current) use of oral hypoglycemic drugs; Z79.899 Other long term (current) drug therapy; Z86.73 Personal history of transient ischemic attack (TIA), and cerebral infarction without residual deficits; Z87.891 Personal history of nicotine dependence
CPT/HCPCS: 80048; 80076; 83690; 85025; 96361; 96365; 96375; 99283; J7030; J7050; A4216; J2405

== ENCOUNTER 2024-02-25 11:02 | Emergency (ER) | payer MEDICARE, MEDICAID, SELFPAY ==
[2024-02-25 11:03] VITALS: BP 142/72; PULSE 105; RESP 19; TEMP 36.8; O2SAT 94; BMI 25.9
--- NOTE | 2024-02-25 11:07 | RAD_ITS ---
INDICATION: CHEST PAIN EXAMINATION/TECHNIQUE: X-RAY - XR Chest 1 View COMPARISON: Prior study dated: 04/30/2023 FINDINGS: LINES/DEVICES: None. LUNGS: No consolidation, edema or effusion. No pneumothorax. MEDIASTINUM AND CARDIOVASCULAR STRUCTURES: Cardiac silhouette not enlarged. Central airways and mediastinal contour are unremarkable. BONES AND SOFT TISSUES: Unremarkable. RAD/Chest 1 View (Portable) IMPRESSION: No radiographic evidence of acute cardiopulmonary disease. Electronically Signed: Javon Price MD at 11:59 EDT ,
--- NOTE | 2024-02-25 11:07 | EKG12_ITS ---
Test Reason : CP Blood Pressure : / mmHG Vent. Rate : 106 BPM Atrial Rate : 106 BPM P-R Int : 144 ms QRS Dur : 076 ms QT Int : 350 ms P-R-T Axes : 073 011 061 degrees QTc Int : 464 ms Sinus tachycardia Otherwise normal ECG Confirmed by Brock Stratton ([id number]), fan mail editor JOÃO FLANNERY ([id number]) on 02/26/2024 9:21:35 AM Referred By: Confirmed By:Brock Stratton
[2024-02-25 11:14] LABS: Absolute Lymphocyte Count 3.24 X10^3/uL (0.83-4.51); Absolute Neutrophil Count 8.8 X10^3/uL (2.0-7.7); Basophil# 0.07 X10^3/uL; Basophil% 0.5 % (0-1); Eosinophil# 0.07 X10^3/uL; Eosinophils% 0.5 % (0-5); Hematocrit 45.5 % (40-54); Hemoglobin 15.9 g/dL (13.0-16.5); Lymphocyte # 3.24 X10^3/ul (0.83-4.51); Lymphocyte % 24.5 % (19-41); Mean Corp Hgb Conc 34.9 g/dL (32-36); Mean Corpuscular Hgb 32.3 pg (27.0-32.0); Mean Corpuscular Volume 92.3 fL (80-94); Mean Platelet Vol. 9.7 fl (6.2-12.0); Monocyte# 0.96 X10^3/uL; Monocyte% 7.3 % (0-10); NRBC Flagged by Analyzer 0 % (0-5); Neutrophil # 8.83 X10^3/uL (2.7-7.7); Neutrophil % 66.7 % (47-70); Platelet Count 296 K/mm3 (150-450); RBC Distribution Width CV 12.1 % (11.6-14.6); RBC Distribution Width SD 41.1 fl (35.1-43.9); Red Blood Count 4.93 M/mm3 (4.6-6.2); White Blood Count 13.2 K/mm3 (4.4-11.0)
[2024-02-25 11:26] LABS: International Normalized Ratio 0.9; Prothrombin Time (Protime)PT. 12.1 SECONDS (11.7-14.9)
[2024-02-25 11:29] LABS: Anion Gap 17 (5-15); BUN 21 mg/dL (7-18); BUN/Creat Ratio 17.6 RATIO (10-20); Chloride 95 mmol/L (98-107); Creatinine, Serum 1.19 mg/dL (0.70-1.30); EST Glomerular Filtration Rate 67 mL/min (>60); Est Glom Filt Rate - Afr Amer 81 mL/min (>60); Estimated Creatinine Clearance 69.86 ml/min; Glucose 150 mg/dL (74-106); Potassium 3.7 mmol/L (3.5-5.1); Sodium Level 131 mmol/L (136-145); Troponin-I HS (w/2H Reflex) 8 pg/mL (3.0-78.0)
--- NOTE | 2024-02-25 11:38 | EDS_ITS ---
HPI History of Present Illness Chief Complaint: Chest Pain Narrative Narrative: 58-year-old male past medical history of hypertension, recurrent pancreatitis, GERD, presents via EMS with epigastric/chest pain that began at 10 PM. This was last evening when he started having symptoms again. However, he states it feels little different than his recurrent pancreatitis. He vomited last night at 10 PM, then again this morning. No blood in his emesis. No exacerbating or alleviating factors. [facility] Medical History Liver fibrosis Myocardial infarct Stroke/cerebrovascular accident Alcohol abuse Vision loss of right eye Vision loss of left eye Cancer Neck pain PSA elevation GI bleed TIA (transient ischemic attack) Diabetes Family history of cerebral aneurysm Polyneuropathy Gastric ulcer GERD (gastroesophageal reflux disease) Former tobacco use Constipation Glaucoma Seizure disorder Hyperlipidemia PTSD (post-traumatic stress disorder) Anxiety and depression Essential (primary) hypertension Home Medications ?Medication ?Instructions ?Recorded ?Last Taken ?Type amitriptyline 25 mg tablet 25 mg PO QHS depression 07/03/18 01/06/24 History cholecalciferol (vitamin D3) 125 1 cap PO DAILY supplement 11/09/18 01/06/24 History mcg (5,000 unit) capsule hydrochlorothiazide 25 mg tablet 25 mg PO DAILY blood 06/05/20 01/06/24 Rx pressure/heart #30 tabs gabapentin 300 mg capsule 300 mg PO BID nerve pain 10/06/20 01/06/24 History metformin 500 mg tablet 500 mg PO BID diabetes #0 tabs 03/04/22 01/06/24 Rx aspirin 81 mg tablet,delayed 81 mg PO DAILY heart health 07/04/22 01/06/24 History release escitalopram oxalate 10 mg tablet 10 mg PO DAILY depression 07/04/22 01/06/24 History losartan 25 mg tablet 25 mg PO DAILY blood pressure 07/04/22 01/06/24 History amlodipine 10 mg tablet 10 mg PO DAILY blood pressure #90 06/26/23 01/06/24 Rx tabs diphenhydramine HCl 25 mg capsule 25 mg PO TID PRN allergy symptoms 10/10/23 Unknown Rx (Benadryl) #30 caps levocarnitine 330 mg tablet 660 mg (2 x 330 mg) PO BID #120 10/24/23 Unknown Rx tabs ondansetron 4 mg disintegrating 4 mg PO TID PRN nausea and 01/07/24 Unknown Rx tablet vomiting #21 tabs diphenhydramine HCl 25 mg capsule 25 mg PO TID PRN itching #20 caps 01/08/24 Unknown Rx (Benadryl) oxycodone 5 mg capsule 5 mg PO Q6H PRN pain 5 days #20 01/08/24 Unknown Rx caps pantoprazole 40 mg tablet,delayed 40 mg PO DAILY #30 tabs 01/08/24 Unknown Rx release (Protonix) tamsulosin 0.4 mg capsule 0.4 mg PO DAILY@1730 30 days #30 01/08/24 Unknown Rx caps ursodiol 250 mg tablet 250 mg PO BID #180 TABLETS 01/29/24 Unknown Rx nbmyre-rjlxzmje-lqdqize 2 cap PO .COMPLEX #300 caps 02/08/24 Unknown Rx 12,000-38,000-60,000 unit capsule,delayed rel (Creon) oxycodone 5 mg tablet 5 mg PO Q6H PRN pain 3 days #12 02/08/24 Unknown Rx tabs empagliflozin 10 mg tablet 10 mg PO DAILY 02/25/24 Unknown History (Jardiance) insulin glargine 100 unit/mL (3 10 unit subcut QHS 02/25/24 Unknown History mL) subcutaneous pen (Lantus Solostar U-100 Insulin) latanoprost 0.005 % eye drops 1 drp ophthalmic (eye) QHS 02/25/24 Unknown History levetiracetam 500 mg tablet 500 mg PO BID 02/25/24 Unknown History loratadine 10 mg tablet 10 mg PO DAILY 02/25/24 Unknown History magnesium oxide 400 mg (241.3 mg 400 mg PO BID 02/25/24 Unknown History magnesium) tablet ondansetron 4 mg disintegrating 4 mg PO Q8H PRN PRN Nausea #20 tabs 02/25/24 Unknown Rx tablet pravastatin 20 mg tablet 20 mg PO DAILY 02/25/24 Unknown History Allergy/AdvReac Type Severity Reaction Status Date / Time Iodinated Contrast Media Allergy Mild Rash Verified 02/25/24 11:06 hydromorphone (From Dilaudid) Allergy Itching Verified 02/25/24 11:06 lisinopril Allergy Angioedema Verified 02/25/24 11:06 cyclobenzaprine AdvReac Severe Skin Verified 02/25/24 11:06 crawling hydrocodone bitartrate (From AdvReac Itching Verified 02/25/24 11:06 Vicodin) morphine AdvReac Itching Verified 02/25/24 11:06 tramadol AdvReac Itching Verified 02/25/24 11:06 Family History Mother Heart disease Sister Cerebral aneurysm Father Diabetes Kidney disease Anxiety and depression Surgical History History of cholecystectomy (12/2013) History of left heart catheterization (10/31/11) Social History household members: none Smoking Status: Former smoker Tobacco: How many years used: 7 Electronic Cigarette Use: not used alcohol intake: former details: 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 substance use type: does not use caffeine: No robbin/sikhism: Denominational seatbelt use: always ROS ROS ED ROS Narrative Constitutional: No fever, no chills. HEENT: No sore throat. No neck pain. No loss of vision. No rhinorrhea. Cardiovascular: Positive chest pain. No palpitations. No pedal edema. Respiratory: No cough, no shortness of breath. Abdominal: Positive epigastric abdominal pain. Positive nausea and vomiting Genitourinary: No dysuria. No hematuria. Musculoskeletal: No myalgias. No arthralgias. Neurologic: No headaches. No dizziness. No lightheadedness. Skin: No rash. No change in color. Psychiatric: No depression. No anxiety. EXAM Physical Exam Narrative Exam Narrative: Afebrile. Vital signs noted. HEENT: Normocephalic. Atraumatic. PERRL, EOMI. Neck soft and supple. No point tenderness or step off. Cardiovascular: Regular rate and rhythm with intermittent tachycardia. No murmurs, rubs, or gallops appreciated. Respiratory: No tachypnea. Lungs clear to auscultation bilaterally. Gastrointestinal: Abdomen soft, nontender, with normoactive bowel sounds. No rebound or guarding. Neurological: Awake. Alert. Nonfocal, nonlateralizing. Skin: No rash. Normal color. No pallor. Musculoskeletal: No pedal edema. Full range of motion extremities. Const Vital Signs: 02/25/24 11:03 02/25/24 11:06 02/25/24 11:08 Temperature 98.2 F Temperature Source Temporal Pulse Rate 105 H Respiratory Rate 19 H Respiratory Effort Normal Non-Labored Blood Pressure 142/72 H Blood Pressure Mean 95 Pulse Ox 94 Oxygen Delivery Method Room Air Room Air 02/25/24 12:03 02/25/24 13:00 02/25/24 13:52 Temperature Temperature Source Pulse Rate 101 H 98 95 Respiratory Rate 30 H 23 H 27 H Respiratory Effort Blood Pressure 142/83 H 136/87 H 134/87 H Blood Pressure Mean 102 103 102 Pulse Ox 94 96 96 Oxygen Delivery Method Room Air Room Air Room Air Heart Score History: Slightly/Non-Suspicious ECG: Normal Age: >45 - <65 years Risk Factors: 1 or 2 Risk Factors Score: 2 MDM MDM MDM Narrative Medical decision making narrative: In the differential diagnosis is recurrent pancreatitis versus ACS versus electrolyte disturbance. I reviewed the patient's prior records, he seen frequently for his recurrent pancreatitis, his last visit was midmon, almost 2-1/2 weeks ago. He is able to tolerate Dilaudid, Benadryl, and Zofran as well as are given in this combination. EKG was obtained and interpreted by myself independently as sinus tachycardia at 106 bpm without ectopy or acute ST changes. No STEMI. I reviewed his initial protocol laboratory work and he has slight elevation of his WBC count of 13.2 which may be demargination from vomiting, he has a normal hemoglobin of 15.9, platelet count normal at 296. Coagulation studies are negative. Sodium is low at 131. He will be bolused normal saline. Chloride low at 95. Glucose is elevated at 150 and anion gap slightly elevated at 17. I do not feel he is in a diabetic ketoacidosis. I will add a lipase and his initial troponin is 8 with second pending. I reviewed his second troponin is negative at 8 as well. Lipase is normal at 19. At this point in time, upon repeat examination at approximately 1420, he is improved and there has been no vomiting in the ED. He had been given Reglan after his first dose of Zofran. He states he ran out of his Zofran which he usually takes I wrote him a prescription for 20 ODT's. At this point in time, I feel he can be discharged to follow-up with his salvage engineer, Dr. Santamaria. He does have a history of GERD so this may be an exacerbation. Return instructions to the emergency department were reviewed. Disposition is discharged home in stable condition. History & Record Review Discussion w/independent historian: Patient Lab Data Attestation: I reviewed the patient's lab results. Labs: Laboratory Results - last 24 hr 02/25/24 02/25/24 10:45 13:09 WBC 13.2 H RBC 4.93 Hgb 15.9 Hct 45.5 MCV 92.3 MCH 32.3 H MCHC 34.9 RDW Std Deviation 41.1 RDW Coeff of Armin 12.1 Plt Count 296 MPV 9.7 Immature Gran % (Auto) 0.500 Neut % (Auto) 66.7 Lymph % (Auto) 24.5 Stanley % (Auto) 7.3 Eos % (Auto) 0.5 Baso % (Auto) 0.5 Absolute Neuts (auto) 8.8 H Absolute Lymphs (auto) 3.24 Nucleated RBC % 0 PT 12.1 INR 0.9 Sodium 131 L Potassium 3.7 Chloride 95 L Carbon Dioxide 19.0 L Anion Gap 17 H BUN 21 H Creatinine 1.19 Estim Creat Clear Calc 69.86 Est GFR (MDRD) Af Amer 81 Est GFR (MDRD) Non-Af 67 BUN/Creatinine Ratio 17.6 Glucose 150 H Calcium 10.0 Troponin I High Sens 8 8 Lipase 19 Radiography Diagnostic Testing: Clinical Impression(s) from Imaging Studies Chest X-Ray 02/25/24 11:07 IMPRESSION: No radiographic evidence of acute cardiopulmonary disease. Electronically Signed: Javon Price MD at 11:59 EDT , Discharge Plan Triage Chief Complaint: Chest Pain ED Provider: Alejandro Gandhi Dx/Rx/DC Orders Clinical Impression: Epigastric pain, GERD (gastroesophageal reflux disease), Chest pain Instructions: ED Chest Pain, Uncertain Cause, ED GERD (Adult), ED Epigastric Pain Uncertain Cause Prescriptions: New ondansetron 4 mg tablet,disintegrating 4 mg PO Q8H PRN PRN (Reason: Nausea) Qty: 20 0RF No Action amitriptyline 25 mg tablet 25 mg PO QHS gabapentin 300 mg capsule 300 mg PO BID levocarnitine 330 mg tablet 660 mg PO BID Qty: 120 7RF Rx Instructions: must administer with a meal/food cholecalciferol (vitamin D3) 5,000 capsule 1 cap PO DAILY metformin 500 MG tablet 500 mg PO BID Qty: 0 0RF aspirin 81 mg Tablet,Delayed Release (Dr/Ec) 81 mg PO DAILY losartan 25 mg tablet 25 mg PO DAILY escitalopram oxalate 10 mg tablet 10 mg PO DAILY diphenhydramine HCl [Benadryl] 25 mg capsule 25 mg PO TID PRN (Reason: allergy symptoms) Qty: 30 0RF ondansetron 4 mg tablet,disintegrating 4 mg PO TID PRN (Reason: nausea and vomiting) Qty: 21 0RF tamsulosin 0.4 mg Capsule 0.4 mg PO DAILY@1730 30 Days Qty: 30 0RF oxycodone 5 mg capsule 5 mg PO Q6H PRN (Reason: pain) 5 Days Qty: 20 0RF diphenhydramine HCl [Benadryl] 25 mg capsule 25 mg PO TID PRN (Reason: itching) Qty: 20 0RF pantoprazole [Protonix] 40 mg tablet,delayed release (DR/EC) 40 mg PO DAILY Qty: 30 0RF latanoprost 0.005 % drops 1 drp ophthalmic (eye) QHS levetiracetam 500 mg tablet 500 mg PO BID magnesium oxide 400 mg (241.3 mg magnesium) tablet 400 mg PO BID pravastatin 20 mg tablet 20 mg PO DAILY loratadine 10 mg tablet 10 mg PO DAILY insulin glargine [Lantus Solostar U-100 Insulin] 100 unit/mL (3 mL) insulin pen 10 unit subcut QHS Jardiance 10 mg tablet 10 mg PO DAILY oxycodone 5 mg tablet 5 mg PO Q6H PRN (Reason: pain) 3 Days Qty: 12 0RF hydrochlorothiazide 25 mg tablet 25 mg PO DAILY Qty: 30 11RF amlodipine 10 mg tablet 10 mg PO DAILY Qty: 90 3RF ursodiol 250 mg tablet 250 mg PO BID Qty: 180 2RF Creon 12,000-38,000 -60,000 unit capsule,delayed release(DR/EC) 2 cap PO .COMPLEX Qty: 300 11RF Rx Instructions: 2 caps orally ; take 1-2 with snacks and 2-3 with meals; Primary Care Provider: Lobito Maldonado Referrals: Taras Santamaria DO [Med Staff - Active Staff] - As soon as possible Lobito Maldonado MD [Primary Care Provider] - Print Language: Indonesian Disposition Disposition: Home, Self Care
[2024-02-25 12:00] LABS: Lipase 19 U/L (13-75)
[2024-02-25] MEDS: DiphenhydrAMINE 50 MG/ML Syringe 25 MG IV (12:00)
[2024-02-25] MEDS: 0.9% Normal Saline (1000mL) 1,000 ML 999 ML IV (12:00)
[2024-02-25] MEDS: Ondansetron 4 MG/2 ML Vial IV (12:00)
[2024-02-25] MEDS: HYDROmorphone 1 MG/ML Syringe IV (12:00)
[2024-02-25 12:03] VITALS: BP 142/83; PULSE 101; RESP 30; O2SAT 94
[2024-02-25 13:00] VITALS: BP 136/87; PULSE 98; RESP 23; O2SAT 96
[2024-02-25] MEDS: Metoclopramide 10 MG/2 ML Vial 5 MG IV (13:07)
[2024-02-25 13:09] LABS: Reflex Troponin-HS? (from REC) Y
[2024-02-25 13:34] LABS: Troponin-I HS 8 pg/mL (3.0-78.0)
[2024-02-25 13:52] VITALS: BP 134/87; PULSE 95; RESP 27; O2SAT 96
[2024-02-25 14:36] VITALS: BP 137/83; PULSE 95; RESP 19; TEMP 36.8; O2SAT 97
== END 2024-02-25 14:38 | disposition home or self-care (01) ==
PROVIDERS: Emergency Provider Emergency Medicine; PCP Internal Medicine; Visit Provider Emergency Medicine
DX: R10.13 Epigastric pain (principal); K86.1 Other chronic pancreatitis; E11.65 Type 2 diabetes mellitus with hyperglycemia; Z79.4 Long term (current) use of insulin; R07.9 Chest pain, unspecified; I10 Essential (primary) hypertension; E87.1 Hypo-osmolality and hyponatremia; K21.9 Gastro-esophageal reflux disease without esophagitis; I25.2 Old myocardial infarction; Z79.82 Long term (current) use of aspirin; Z79.84 Long term (current) use of oral hypoglycemic drugs; Z79.899 Other long term (current) drug therapy; Z86.73 Personal history of transient ischemic attack (TIA), and cerebral infarction without residual deficits; Z87.891 Personal history of nicotine dependence
CPT/HCPCS: 71045; 80048; 83690; 84484; 85025; 85610; 93005; 96360; 96361; 96374; 96375; 99283; A4216; J2405

== ENCOUNTER → 2024-04-04 | Outpatient (CLI) | payer MEDICARE, MEDICAID, SELFPAY ==
[2024-04-06 08:17] LABS: Carbohydrate AG 19-9 12 U/mL (0-35)
== END | disposition home or self-care (01) ==
LOC: LAB 14:29
PROVIDERS: PCP Internal Medicine; Referring Provider Internal Medicine Gastroenterology; Visit Provider Internal Medicine Gastroenterology
DX: C25.9 Malignant neoplasm of pancreas, unspecified (principal)
CPT/HCPCS: 36415; 86301

== ENCOUNTER → 2024-05-03 | Outpatient (CLI) | payer MEDICARE, MEDICAID, SELFPAY ==
--- NOTE | 2024-05-03 14:36 | MRI_ITS ---
MRCP without contrast 05/03/2024 3:47 PM COMPARISON: 05/14/2021 CLINICAL HISTORY: chronic pancreatitis, ABDOMEN PAIN, COMPARE TO PREVIOUS MRCP AND CT ABDOMEN TECHNIQUE: Multiplanar and multisequence MR images of the abdomen were obtained with MRCP sequence. Three-dimensional post-processing reconstructions were performed. FINDINGS: Liver: Unremarkable Gallbladder: Surgically absent. Bile Ducts: Unremarkable Pancreas: Unremarkable Spleen: Unremarkable Adrenal Glands: Unremarkable Kidneys: 1.7 cm simple cyst in the left kidney. GI Tract: Unremarkable Lymphadenopathy: Absent Ascites: Absent Bones: No suspicious lesions MRI/MRCP Abdomen without Contrast IMPRESSION: Unremarkable MRI and MRCP of the abdomen Electronically Signed: Keith Tidwell MD at 15:56 EDT ,
== END | disposition home or self-care (01) ==
LOC: MRI 14:34
PROVIDERS: PCP Internal Medicine; Referring Provider Internal Medicine Gastroenterology; Visit Provider Internal Medicine Gastroenterology
DX: K86.1 Other chronic pancreatitis (principal)
CPT/HCPCS: 74181

== ENCOUNTER 2024-06-19 11:12 | Inpatient (IN) | payer MEDICARE, MEDICAID, SELFPAY ==
[2024-06-19 11:13] VITALS: BP 117/73; PULSE 131; RESP 16; TEMP 37; O2SAT 98; BMI 25.0
--- NOTE | 2024-06-19 11:24 | ED.RN ---
Dr. Rogel bedside
--- NOTE | 2024-06-19 11:30 | EKG12_ITS ---
Test Reason : Blood Pressure : / mmHG Vent. Rate : 113 BPM Atrial Rate : 113 BPM P-R Int : 142 ms QRS Dur : 078 ms QT Int : 328 ms P-R-T Axes : 076 010 052 degrees QTc Int : 449 ms Sinus tachycardia Nonspecific T wave abnormality Abnormal ECG Confirmed by Brock Stratton ([id number]), photographic editor JOÃO FLANNERY ([id number]) on 06/21/2024 9:41:28 AM Referred By: Confirmed By:Brock Stratton
--- NOTE | 2024-06-19 11:32 | CT_ITS ---
STUDY: CT ABDOMEN AND PELVIS WITHOUT CONTRAST REASON FOR EXAM: Male, 59 years old. hx of pancreatitis. Right upper quadrant pain. RADIATION DOSAGE (If Supplied By Facility): CTDIvol = ( 6.76 ) mGy, DLP = ( 349.69 ) mGycm TECHNIQUE: Transaxial images were obtained from the dome of the diaphragm to the symphysis pubis without oral contrast, and without intravenous contrast. Sagittal and coronal images were reconstructed. Individualized dose optimization techniques were used for this CT. COMPARISON: Comparison is made with prior study dated January 07, 2024. FINDINGS: The visualized lung bases are unremarkable. The visualized portions of the heart are within normal limits. There is decreased attenuation of the liver consistent with steatosis. Hepatomegaly. There is a 1.1 cm cyst in the anterior aspect of the left lobe of the liver. The patient is status post cholecystectomy. Normal spleen. Normal pancreas. Normal bilateral adrenal glands. Normal right kidney. Stable 1.7 cm left renal cyst. There is a small hiatal hernia. Normal small intestine. Normal colon. The appendix is visualized and appears normal. There is scattered atherosclerotic calcification of the abdominal aorta, without a demonstrated aneurysm. Normal inferior vena cava. Normal retroperitoneum. Normal urinary bladder. There is enlargement of the prostate gland. The prostate measures 3.5 x 5.3 cm. This causes indentation of the bladder base. Normal abdominal wall. Straightening of the normal lumbar lordosis. CT/Abdomen/Pelvis without Cont IMPRESSION: Status post cholecystectomy. Fatty eventration of the liver and mild hepatomegaly. Prostatic enlargement. Electronically Signed: Brendan Ty MD at 12:02 EDT ,
[2024-06-19] MEDS: 0.9% Normal Saline (1000mL) 1,000 ML 999 ML IV ×2 (11:38→13:52)
[2024-06-19] MEDS: fentaNYL 100 MCG/2 ML Ampul 50 MCG IV ×2 (11:39→12:46)
[2024-06-19 11:43] LABS: Absolute Lymphocyte Count 2.09 X10^3/uL (0.83-4.51); Absolute Neutrophil Count 11.1 X10^3/uL (2.0-7.7); Basophil# 0.08 X10^3/uL; Basophil% 0.6 % (0-1); Eosinophil# 0.01 X10^3/uL; Eosinophils% 0.1 % (0-5); Hematocrit 45.3 % (40-54); Hemoglobin 14.8 g/dL (13.0-16.5); Lymphocyte # 2.09 X10^3/ul (0.83-4.51); Lymphocyte % 14.8 % (19-41); Mean Corp Hgb Conc 32.7 g/dL (32-36); Mean Corpuscular Hgb 30.6 pg (27.0-32.0); Mean Corpuscular Volume 93.6 fL (80-94); Mean Platelet Vol. 9.3 fl (6.2-12.0); Monocyte# 0.73 X10^3/uL; Monocyte% 5.2 % (0-10); NRBC Flagged by Analyzer 0 % (0-5); Neutrophil % 78.6 % (47-70); Platelet Count 235 K/mm3 (150-450); RBC Distribution Width CV 12.4 % (11.6-14.6); Red Blood Count 4.84 M/mm3 (4.6-6.2); White Blood Count 14.1 K/mm3 (4.4-11.0)
[2024-06-19 11:58] LABS: ALB/GLOB Ratio 1.1 RATIO (0.9-2.4); AST(SGOT) 23 U/L (15-37); Alanine Aminotransfer ALT/SGPT 27 U/L (16-61); Albumin, Serum 4.2 g/dL (3.2-5.0); Alkaline Phosphatase 73 U/L (45-117); Anion Gap 22 (5-15); BUN 15 mg/dL (7-18); BUN/Creat Ratio 13.2 RATIO (10-20); Calcium,Total 9.6 mg/dL (8.5-10.1); Chloride 100 mmol/L (98-107); Creatinine, Serum 1.14 mg/dL (0.70-1.30); EST Glomerular Filtration Rate 70 mL/min (>60); Est Glom Filt Rate - Afr Amer 85 mL/min (>60); Estimated Creatinine Clearance 72.04 ml/min; Globulin 3.9 g/dL (2.2-4.2); Glucose 93 mg/dL (74-106); Lipase 109 U/L (13-75); Potassium 3.9 mmol/L (3.5-5.1); Protein, Total 8.1 g/dL (6.4-8.2); Sodium Level 134 mmol/L (136-145)
--- NOTE | 2024-06-19 11:59 | EX.ED.DYSGE1 ---
HPI History of Present Illness Chief Complaint: Abd Pain Narrative Narrative: Patient is a 59-year-old male with past medical history of chronic pancreatitis states that he had alcoholic pancreatitis in the past, states that he has had his gallbladder removed, GERD, seizure disorder, anxiety, depression, hypertension who presented to the emergency department chief complaint of concern for pancreatitis. Patient states that yesterday he started developing abdominal pain in his epigastric region and things were not improving prompting him to come here for the evaluation management. Patient states that he was really nauseous before arrival and noted that he took Zofran prior to arrival and states that his nausea is better he rates his pain a 8 out of 10. Patient denies any alcohol use. [facility] Medical History Liver fibrosis Myocardial infarct Stroke/cerebrovascular accident Alcohol abuse Vision loss of right eye Vision loss of left eye Cancer Neck pain PSA elevation GI bleed TIA (transient ischemic attack) Diabetes Family history of cerebral aneurysm Polyneuropathy Gastric ulcer GERD (gastroesophageal reflux disease) Former tobacco use Constipation Glaucoma Seizure disorder Hyperlipidemia PTSD (post-traumatic stress disorder) Anxiety and depression Essential (primary) hypertension Home Medications ?Medication ?Instructions ?Recorded ?Last Taken ?Type amitriptyline 25 mg tablet 25 mg PO QHS depression 07/03/18 01/06/24 History cholecalciferol (vitamin D3) 125 1 cap PO DAILY supplement 11/09/18 01/06/24 History mcg (5,000 unit) capsule hydrochlorothiazide 25 mg tablet 25 mg PO DAILY blood 06/05/20 01/06/24 Rx pressure/heart #30 tabs gabapentin 300 mg capsule 300 mg PO BID nerve pain 10/06/20 01/06/24 History metformin 500 mg tablet 500 mg PO BID diabetes #0 tabs 03/04/22 01/06/24 Rx aspirin 81 mg tablet,delayed 81 mg PO DAILY heart health 07/04/22 01/06/24 History release escitalopram oxalate 10 mg tablet 10 mg PO DAILY depression 07/04/22 01/06/24 History losartan 25 mg tablet 25 mg PO DAILY blood pressure 07/04/22 01/06/24 History ondansetron 4 mg disintegrating 4 mg PO TID PRN nausea and 01/07/24 Unknown Rx tablet vomiting #21 tabs pantoprazole 40 mg tablet,delayed 40 mg PO DAILY #30 tabs 01/08/24 Unknown Rx release (Protonix) tamsulosin 0.4 mg capsule 0.4 mg PO DAILY@1730 30 days #30 01/08/24 Unknown Rx caps ursodiol 250 mg tablet 250 mg PO BID #180 TABLETS 01/29/24 Unknown Rx [id number] 2 cap PO .COMPLEX #300 caps 02/08/24 Unknown Rx 12,000-38,000-60,000 unit capsule,delayed rel (Creon) empagliflozin 10 mg tablet 10 mg PO DAILY 02/25/24 Unknown History (Jardiance) insulin glargine 100 unit/mL (3 10 unit subcut QHS 02/25/24 Unknown History mL) subcutaneous pen (Lantus Solostar U-100 Insulin) latanoprost 0.005 % eye drops 1 drp ophthalmic (eye) QHS 02/25/24 Unknown History loratadine 10 mg tablet 10 mg PO DAILY 02/25/24 Unknown History magnesium oxide 400 mg (241.3 mg 400 mg PO BID 02/25/24 Unknown History magnesium) tablet ondansetron 4 mg disintegrating 4 mg PO Q8H PRN PRN Nausea #20 tabs 02/25/24 Unknown Rx tablet pravastatin 20 mg tablet 20 mg PO DAILY 02/25/24 Unknown History levetiracetam 500 mg tablet 500 mg PO BID #60 tabs 04/18/24 Unknown Rx levocarnitine 330 mg tablet 660 mg (2 x 330 mg) PO BID #120 04/18/24 Unknown Rx tabs amlodipine 10 mg tablet 10 mg PO DAILY blood pressure #90 05/24/24 Unknown Rx tabs Allergy/AdvReac Type Severity Reaction Status Date / Time Iodinated Contrast Media Allergy Mild Rash Verified 06/19/24 11:14 hydromorphone (From Dilaudid) Allergy Itching Verified 06/19/24 11:14 lisinopril Allergy Angioedema Verified 06/19/24 11:14 cyclobenzaprine AdvReac Severe Skin Verified 06/19/24 11:14 crawling hydrocodone bitartrate (From AdvReac Itching Verified 06/19/24 11:14 Vicodin) morphine AdvReac Itching Verified 06/19/24 11:14 tramadol AdvReac Itching Verified 06/19/24 11:14 Family History Mother Heart disease Sister Cerebral aneurysm Father Diabetes Kidney disease Anxiety and depression Surgical History History of cholecystectomy (12/2013) History of left heart catheterization (10/31/11) Social History household members: none Smoking Status: Former smoker Tobacco: How many years used: 7 Electronic Cigarette Use: not used alcohol intake: former details: 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 substance use type: does not use caffeine: No robbin/presybeterian: Restorationism seatbelt use: always ROS ROS ED ROS Narrative Constitutional: Denies any fevers, chills, headaches, lightness, dizziness Cardiovascular: Denies chest pain or palpitations Respiratory: Denies coughing wheezing shortness of breath Abdomen: Complains of abdominal pain and nausea as noted above denies vomiting or diarrhea denies any dark tarry stools denies blood in stool : Denies any urinary symptoms Neurological: Denies numbness, knees, tingling Musculoskeletal: States that his abdominal pain does go to his back Skin: Denies rashes or lesions EXAM Physical Exam Narrative Exam Narrative: General: Patient lying in bed rest comfortably did not appear to be in acute distress Head: Atraumatic, normocephalic Eyes: PERRL bilateral, EOMI bilateral, no conjunctival injection noted Neck: Soft, supple, trachea midline Cardiovascular: patient was tachycardic with a regular rhythm no murmurs gallops rubs noted Respiratory: Clear to auscultation bilaterally no rales rhonchi or wheezes noted Abdomen: Soft, nondistended, tender to palpation in the epigastric region no rebound or guarding on exam Extremities: +5/5 strength noted in the bilateral upper and lower extremities, no pedal edema no exam, radial pulses +2/4 in the bilateral upper extremities Neurological: Patient following commands knew that he was at [facility] year is 2023 Skin: Warm, dry, intact Const Vital Signs: 06/19/24 11:13 06/19/24 13:12 Temperature 98.6 F Temperature Source Oral Pulse Rate 131 H 82 Respiratory Rate 16 16 Blood Pressure 117/73 102/67 Blood Pressure Mean 87 78 Pulse Ox 98 100 Oxygen Delivery Method Room Air MDM MDM MDM Narrative Medical decision making narrative: Patient is a 59-year-old male who presents to the emergency department with a chief complaint of epigastric abdominal pain and concern for pancreatitis. Patient will have a workup performed here on the differential diagnose includes but not limited to ACS, GERD, pancreatitis, AAA. Once workup is obtained reviewed he will be reevaluated. Patient be given IV fluids, fentanyl. Patient CBC reviewed and showed leukocytosis of 14,000, hemoglobin stable 14.8, platelet count was noted to be normal at 235. Patient's arterial blood gas showed a normal pH 7.37, O2 sat 94, sodium normal 135, potassium of 4.4, carbon dioxide level was low at 17, anion gap of 22, creatinine normal at 1.09. Patient lactic acid pending, AST and ALT were 23 and 27 respectively, lipase elevated to 109 does have chronic pancreatitis. Patient's urinalysis showed ketones as well as [address] abdomen pelvis without contrast reviewed and showed status post cholecystectomy fatty infiltration of the liver mild hepatomegaly, prostatic enlargement. Reevaluation the patient he is still having significant amount of abdominal pain was requesting more pain medication he was given 2 doses of fentanyl will be given Dilaudid and Benadryl he states that he is tolerated this in the past. Did discuss case with hospitalist who will accept the patient for admission Dr. Cox. Patient notified that he be admitted with all question concerns answered. Lab Data Labs: Laboratory Results - last 24 hr 06/19/24 06/19/24 11:33 13:45 WBC 14.1 H RBC 4.84 Hgb 14.8 Hct 45.3 MCV 93.6 MCH 30.6 MCHC 32.7 RDW Std Deviation 43.0 RDW Coeff of Armin 12.4 Plt Count 235 MPV 9.3 Immature Gran % (Auto) 0.700 Neut % (Auto) 78.6 H Lymph % (Auto) 14.8 L Dolores % (Auto) 5.2 Eos % (Auto) 0.1 Baso % (Auto) 0.6 Absolute Neuts (auto) 11.1 H Absolute Lymphs (auto) 2.09 Nucleated RBC % 0 Sodium 134 L 135 L Potassium 3.9 4.4 Chloride 100 102 Carbon Dioxide 13.0 L 17.0 L Anion Gap 22 H 16 H BUN 15 15 Creatinine 1.14 1.09 Estim Creat Clear Calc 72.04 75.34 Est GFR (MDRD) Af Amer 85 89 Est GFR (MDRD) Non-Af 70 74 BUN/Creatinine Ratio 13.2 13.8 Glucose 93 111 H Calcium 9.6 9.2 Total Bilirubin 0.60 AST 23 ALT 27 Alkaline Phosphatase 73 Total Protein 8.1 Albumin 4.2 Globulin 3.9 Albumin/Globulin Ratio 1.1 Lipase 109 H Urine Color Yellow Urine Clarity Sl. Cloudy Urine pH 5.0 Ur Specific Lyman 1.025 Urine Protein 100 H Urine Glucose (UA) 1000 H Urine Ketones 150 A* Urine Occult Blood Negative Urine Nitrite Negative Urine Bilirubin Negative Urine Urobilinogen Normal Ur Leukocyte Esterase Negative Urine RBC 0 SEEN Urine WBC 0 SEEN Ur Squamous Epith Cells 0-5 SEEN Urine Bacteria 1+ Urine Mucus 0 SEEN Acetone Level SMALL H ABG Data ABG results: ABG 06/19/24 13:43 Specimen Type ART Sample Site L Radial pH 7.37 Bicarbonate Actual 18.2 L Total CO2 19 Base Excess -7 L O2 Saturation 94 L O2 % 21.0 ABG pCO2 31.3 L ABG pO2 73 L Deion Test Positive O2 Delivery Device Room Air Vent Mode Not entered Radiography Diagnostic Testing: Clinical Impression(s) from Imaging Studies Abdomen/Pelvis CT 06/19/24 11:32 IMPRESSION: Status post cholecystectomy. Fatty eventration of the liver and mild hepatomegaly. Prostatic enlargement. Electronically Signed: Brendan Ty MD at 12:02 EDT Reading Location ID and State: [facility] / [place] , Service support , Discharge Plan Triage Chief Complaint: Abd Pain ED Provider: Brady Rogel Dx/Rx/DC Orders Clinical Impression: Intractable abdominal pain, Nausea & vomiting Prescriptions: No Action amitriptyline 25 mg tablet 25 mg PO QHS gabapentin 300 mg capsule 300 mg PO BID levetiracetam 500 mg tablet 500 mg PO BID Qty: 60 11RF levocarnitine 330 mg tablet 660 mg PO BID Qty: 120 11RF Rx Instructions: must administer with a meal/food cholecalciferol (vitamin D3) 5,000 capsule 1 cap PO DAILY metformin 500 MG tablet 500 mg PO BID Qty: 0 0RF aspirin 81 mg Tablet,Delayed Release (Dr/Ec) 81 mg PO DAILY losartan 25 mg tablet 25 mg PO DAILY escitalopram oxalate 10 mg tablet 10 mg PO DAILY ondansetron 4 mg tablet,disintegrating 4 mg PO TID PRN (Reason: nausea and vomiting) Qty: 21 0RF tamsulosin 0.4 mg Capsule 0.4 mg PO DAILY@1730 30 Days Qty: 30 0RF pantoprazole [Protonix] 40 mg tablet,delayed release (DR/EC) 40 mg PO DAILY Qty: 30 0RF latanoprost 0.005 % drops 1 drp ophthalmic (eye) QHS magnesium oxide 400 mg (241.3 mg magnesium) tablet 400 mg PO BID pravastatin 20 mg tablet 20 mg PO DAILY loratadine 10 mg tablet 10 mg PO DAILY insulin glargine [Lantus Solostar U-100 Insulin] 100 unit/mL (3 mL) insulin pen 10 unit subcut QHS Jardiance 10 mg tablet 10 mg PO DAILY ondansetron 4 mg tablet,disintegrating 4 mg PO Q8H PRN PRN (Reason: Nausea) Qty: 20 0RF hydrochlorothiazide 25 mg tablet 25 mg PO DAILY Qty: 30 11RF ursodiol 250 mg tablet 250 mg PO BID Qty: 180 2RF Creon 12,000-38,000 -60,000 unit capsule,delayed release(DR/EC) 2 cap PO .COMPLEX Qty: 300 11RF Rx Instructions: 2 caps orally ; take 1-2 with snacks and 2-3 with meals; amlodipine 10 mg tablet 10 mg PO DAILY Qty: 90 3RF Primary Care Provider: Lobito Maldonado Referrals: Lobito Maldonado MD [Primary Care Provider] - Print Language: Bengali
[2024-06-19 13:12] VITALS: BP 102/67; PULSE 82; RESP 16; O2SAT 100
[2024-06-19 13:47] LABS: Allen Test Positive; Base Excess -7 mmol/L (-2 to +2); Bicarbonate 18.2 mmol/L (22-26); Blood Gas Specimen Type ART; Mode Not entered; O2 Delivery Device Room Air; PO2 73 mmHG (75-100); SITE L Radial; SO2 94 % (95-99); Total Carbon Dioxide 19 mmol/L; pCO2 31.3 mmHg (35-45); pH 7.37 (7.35-7.45)
[2024-06-19] MEDS: DiphenhydrAMINE 50 MG/ML Syringe 25 MG IV ×3 (13:48→19:58)
[2024-06-19] MEDS: HYDROmorphone 0.5 MG/0.5 ML SYRINGE IV ×2 (13:49→15:40)
[2024-06-19 13:54] LABS: Mucous, Urine 0 SEEN /hpf (<or=2+); Red Blood Cells-Urine 0 SEEN /hpf (0-5); White Blood Cells 0 SEEN /hpf (0-5)
[2024-06-19 14:00] LABS: Color, Urine Yellow (Yellow); Glucose, Dipstick 1000 mg/dl (Normal); Leukocyte Esterase-Dipstick Negative /ul (Negative); Nitrite-Dipstick Negative (Negative); Occult Blood-Urine Negative /ul (Negative); Protein-Dipstick 100 mg/dl (Negative); Specific Gravity, Urine 1.025 (1.002-1.030); Urine Bilirubin Dipstick Negative (Negative); Urine Clarity Sl. Cloudy (Clear); Urine Urobilinogen Normal (Normal)
[2024-06-19 14:05] LABS: Ketone-Dipstick 150 mg/dl (Negative)
[2024-06-19 14:06] LABS: Squamous Epithelial Cells - UA 0-5 SEEN /hpf (0-5)
[2024-06-19 14:07] LABS: Bacteria 1+ /hpf (None Seen)
[2024-06-19 14:20] LABS: Anion Gap 16 (5-15); BUN 15 mg/dL (7-18); BUN/Creat Ratio 13.8 RATIO (10-20); Calcium,Total 9.2 mg/dL (8.5-10.1); Chloride 102 mmol/L (98-107); Creatinine, Serum 1.09 mg/dL (0.70-1.30); EST Glomerular Filtration Rate 74 mL/min (>60); Est Glom Filt Rate - Afr Amer 89 mL/min (>60); Estimated Creatinine Clearance 75.34 ml/min; Glucose 111 mg/dL (74-106); Potassium 4.4 mmol/L (3.5-5.1); Sodium Level 135 mmol/L (136-145)
--- NOTE | 2024-06-19 14:22 | HP.PCM.HOS_ITS ---
HPI - General General Date of Admission: 06/19/24 Date of Service: 06/19/24 Chief Complaint: Abdominal pain HPI Narrative BRANDON WELLER, is a 59-year-old male history of chronic pancreatitis, fatty liver, seizure disorder, GERD, hypertension, diabetes, BPH presented to [facility] ED 06/19/2024 due to epigastric pain that began the day prior. Patient had been in his usual health until yesterday when he began to have epigastric pain radiating towards the right side of his abdomen, has been progressively worse prompting him to come to the ED. Patient is also experienced nausea but has not had significant vomiting as he took Zofran at home. Denies any diarrhea or constipation, no fevers or chills, ROS otherwise negative. Patient reports he has not drink in 2 months and has not smoked cigarettes in 9 years, denies any other substance use aside from occasional marijuana. In the ED patient had white blood cell count of 14.1, anion gap of 22 with a carbon dioxide of 13. He was initially thought that maybe he had recurrent pancreatitis however lipase only [address] abdomen without signs of pancreatitis so further workup for patient's high anion gap metabolic acidosis ordered and hospitalist contacted for admission. Patient evaluated at bedside and reports history as above, no chest pain or shortness of breath, no cough, no burning on urination or other urinary symptoms. No new cuts or rashes or bleeding, bruising, injury. Labs did result with ketones in urine and acetone in blood however with IV fluids Starting to close and tachycardia improving so we will send him to PCU with subcu insulin/push dextrose and continue IV fluids. [facility] Medical History Liver fibrosis Myocardial infarct Stroke/cerebrovascular accident Alcohol abuse Vision loss of right eye Vision loss of left eye Cancer Neck pain PSA elevation GI bleed TIA (transient ischemic attack) Diabetes Family history of cerebral aneurysm Polyneuropathy Gastric ulcer GERD (gastroesophageal reflux disease) Former tobacco use Constipation Glaucoma Seizure disorder Hyperlipidemia PTSD (post-traumatic stress disorder) Anxiety and depression Essential (primary) hypertension Home Medications ?Medication ?Instructions ?Recorded ?Last Taken ?Type amitriptyline 25 mg tablet 25 mg PO QHS depression 07/03/18 01/06/24 History cholecalciferol (vitamin D3) 125 1 cap PO DAILY supplement 11/09/18 01/06/24 History mcg (5,000 unit) capsule hydrochlorothiazide 25 mg tablet 25 mg PO DAILY blood 06/05/20 01/06/24 Rx pressure/heart #30 tabs gabapentin 300 mg capsule 300 mg PO BID nerve pain 10/06/20 01/06/24 History metformin 500 mg tablet 500 mg PO BID diabetes #0 tabs 03/04/22 01/06/24 Rx aspirin 81 mg tablet,delayed 81 mg PO DAILY heart health 07/04/22 01/06/24 History release escitalopram oxalate 10 mg tablet 10 mg PO DAILY depression 07/04/22 01/06/24 History losartan 25 mg tablet 25 mg PO DAILY blood pressure 07/04/22 01/06/24 History ondansetron 4 mg disintegrating 4 mg PO TID PRN nausea and 01/07/24 Unknown Rx tablet vomiting #21 tabs pantoprazole 40 mg tablet,delayed 40 mg PO DAILY #30 tabs 01/08/24 Unknown Rx release (Protonix) tamsulosin 0.4 mg capsule 0.4 mg PO DAILY@1730 30 days #30 01/08/24 Unknown Rx caps ursodiol 250 mg tablet 250 mg PO BID #180 TABLETS 01/29/24 Unknown Rx hlbqis-nayugvsb-broypoh 2 cap PO .COMPLEX #300 caps 02/08/24 Unknown Rx 12,000-38,000-60,000 unit capsule,delayed rel (Creon) empagliflozin 10 mg tablet 10 mg PO DAILY 02/25/24 Unknown History (Jardiance) insulin glargine 100 unit/mL (3 10 unit subcut QHS 02/25/24 Unknown History mL) subcutaneous pen (Lantus Solostar U-100 Insulin) latanoprost 0.005 % eye drops 1 drp ophthalmic (eye) QHS 02/25/24 Unknown History loratadine 10 mg tablet 10 mg PO DAILY 02/25/24 Unknown History magnesium oxide 400 mg (241.3 mg 400 mg PO BID 02/25/24 Unknown History magnesium) tablet ondansetron 4 mg disintegrating 4 mg PO Q8H PRN PRN Nausea #20 tabs 02/25/24 Unknown Rx tablet pravastatin 20 mg tablet 20 mg PO DAILY 02/25/24 Unknown History levetiracetam 500 mg tablet 500 mg PO BID #60 tabs 04/18/24 Unknown Rx levocarnitine 330 mg tablet 660 mg (2 x 330 mg) PO BID #120 04/18/24 Unknown Rx tabs amlodipine 10 mg tablet 10 mg PO DAILY blood pressure #90 05/24/24 Unknown Rx tabs Allergy/AdvReac Type Severity Reaction Status Date / Time Iodinated Contrast Media Allergy Mild Rash Verified 06/19/24 11:14 hydromorphone (From Dilaudid) Allergy Itching Verified 06/19/24 11:14 lisinopril Allergy Angioedema Verified 06/19/24 11:14 cyclobenzaprine AdvReac Severe Skin Verified 06/19/24 11:14 crawling hydrocodone bitartrate (From AdvReac Itching Verified 06/19/24 11:14 Vicodin) morphine AdvReac Itching Verified 06/19/24 11:14 tramadol AdvReac Itching Verified 06/19/24 11:14 Family History Mother Heart disease Sister Cerebral aneurysm Father Diabetes Kidney disease Anxiety and depression Surgical History History of cholecystectomy (12/2013) History of left heart catheterization (10/31/11) Social History household members: none Smoking Status: Former smoker Tobacco: How many years used: 7 Electronic Cigarette Use: not used alcohol intake: former details: 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 substance use type: does not use caffeine: No robbin/faith: Holiness seatbelt use: always ROS ROS Narrative General: Denies fever/chills HENT: Denies headache, denies stuffy nose, denies sore throat EYES: Denies changes in vision Resp: Denies cough, denies shortness of breath Cardiac: Denies chest pain GI: Epigastric abdominal pain radiating towards the right side of his abdomen, denies changes in bowel, has been having some associated nausea : Denies changes in urination Extremity: Denies swelling MSK: Denies weakness Neuro: Denies any numbness/tingling Heme: Denies any bleeding or bruising Skin: Denies rashes Psychiatric: No complaints voiced Vital Signs Vital Signs Vital Signs: 06/19/24 11:13 06/19/24 13:12 Temperature 98.6 F Temperature Source Oral Pulse Rate 131 H 82 Respiratory Rate 16 16 Blood Pressure 117/73 102/67 Blood Pressure Mean 87 78 Pulse Ox 98 100 Oxygen Delivery Method Room Air Weight Weight: 79.038 kg Body Mass Index (BMI) 25.0 Physical Exam Narrative General: Alert, oriented, appears uncomfortable HEENT: Atraumatic, normocephalic Eyes: Anicteric, normal conjunctiva, extraocular movements grossly intact Neck: Supple Respiratory: Clear to auscultation bilaterally, normal respiratory effort Cardiovascular: Initially tachycardic but this is improving GI: Patient with some epigastric and right upper quadrant tenderness but without rebound, guarding, rigidity Extremities: No edema Musculoskeletal: Moving all extremities Neuro: No overt focal neurological deficits Skin: No rashes appreciated Psych: Cooperative Results Lab / Micro Data 06/19/24 11:33 06/19/24 13:45 Labs: Laboratory Results - last 24 hr 06/19/24 11:33: WBC 14.1 H, RBC 4.84, Hgb 14.8, Hct 45.3, MCV 93.6, MCH 30.6, MCHC 32.7, RDW Std Deviation 43.0, RDW Coeff of Armin 12.4, Plt Count 235, MPV 9.3, Immature Gran % (Auto) 0.700, Neut % (Auto) 78.6 H, Lymph % (Auto) 14.8 L, [place] % (Auto) 5.2, Eos % (Auto) 0.1, Baso % (Auto) 0.6, Absolute Neuts (auto) 11.1 H, Absolute Lymphs (auto) 2.09, Nucleated RBC % 0, Sodium 134 L, Potassium 3.9, Chloride 100, Carbon Dioxide 13.0 L, Anion Gap 22 H, BUN 15, Creatinine 1.14, Estim Creat Clear Calc 72.04, Est GFR (MDRD) Af Amer 85, Est GFR (MDRD) Non-Af 70, BUN/Creatinine Ratio 13.2, Glucose 93, Calcium 9.6, Total Bilirubin 0.60, AST 23, ALT 27, Alkaline Phosphatase 73, Total Protein 8.1, Albumin 4.2, Globulin 3.9, Albumin/Globulin Ratio 1.1, Lipase 109 H 06/19/24 13:45: Sodium 135 L, Potassium 4.4, Chloride 102, Carbon Dioxide 17.0 L , Anion Gap 16 H, BUN 15, Creatinine 1.09, Estim Creat Clear Calc 75.34, Est GFR (MDRD) Af Amer 89, Est GFR (MDRD) Non-Af 74, BUN/Creatinine Ratio 13.8, Glucose 111 H, Calcium 9.2, Urine Color Yellow, Urine Clarity Sl. Cloudy, Urine pH 5.0, Ur Specific [place] 1.025, Urine Protein 100 H, Urine Glucose (UA) 1000 H, Urine Ketones 150 A*, Urine Occult Blood Negative, Urine Nitrite Negative, Urine Bilirubin Negative, Urine Urobilinogen Normal, Ur Leukocyte Esterase Negative, Urine RBC 0 SEEN, Urine WBC 0 SEEN, Ur Squamous Epith Cells 0-5 SEEN, Urine Bacteria 1+, Urine Mucus 0 SEEN, Acetone Level SMALL H ABG Data ABG results: ABG 06/19/24 13:43 Specimen Type ART Sample Site L Radial pH 7.37 Bicarbonate Actual 18.2 L Total CO2 19 Base Excess -7 L O2 Saturation 94 L O2 % 21.0 ABG pCO2 31.3 L ABG pO2 73 L Deion Test Positive O2 Delivery Device Room Air Vent Mode Not entered Imaging Radiology Impression Abdomen/Pelvis CT 06/19/24 11:32 IMPRESSION: Status post cholecystectomy. Fatty eventration of the liver and mild hepatomegaly. Prostatic enlargement. Electronically Signed: Brendan Ty MD at 12:02 EDT Reading Location ID and State: [facility] / [place] , Service support , Assessment & Plan Assessment/Plan (1) DKA (diabetic ketoacidoses): PLAN: Plan #Mixed acid base with underlying high anion gap metabolic acidosis secondary to euglycemic DKA in setting of type 2 diabetes on SGLT2 inhibitor -ABG in the ED with pH of 7.37 however bicarb 18.2 and pCO2 somewhat low at 31.3 showing compensation for underlying acidosis -Serum glucose in ED 93, anion gap 22 with bicarb of 13, repeat demonstrated downtrend in anion gap to 16 and improvement in bicarb to 17 -Urine ketones 150 -Serum acetone present -Given gap is improving with IV fluids alone and tachycardia is improving/clinically overall improving feel patient can be managed with fluids and subcu insulin/dextrose push and monitored in PCU -Not having active nausea now so will start clear liquid diet and advance as tolerated -Hold SGLT2 inhibitor -Aggressive fluid hydration -Dextrose push with subcu insulin -Glucose checks -BMP every 4H -Replace electrolytes per protocol -I's and O's -A1c in the a.m. #Abd pain -Suspect 2/2 DKA as above -Treat underlying disorder -Pain control in the interim # History of seizures -Continue Keppra #Hx chronic pancreatitis -Patient with history of chronic alcoholic pancreatitis, has not drank in 2 months and also lipase only [address] with no evidence of pancreatitis so patient does not meet criteria for acute pancreatitis -Encourage continued cessation -Continue Creon #Hx fatty liver -liver function presently w/in normal limits -Supportive care # History of depression -On Lexapro and amitriptyline, will continue #Hx hypertension -Pt presently w/ borderline BP -Hold antihypotensives #GERD -Continue PPI #Chronic BPH with obstruction -Continue home medications #DVT ppx: Lovenox subcu Roxana Cox MD Time spent in the patient's overall evaluation,decision-making process, review of diagnostic data, adjustment of management, discussion with other providers, nursing nursing and ancillary staff involved in patient's care documentation, 76 Minutes Charges/Coding Visit Charges Inpatient E&M: 60963 Init Hosp L3
[2024-06-19 15:03] VITALS: BP 136/82; PULSE 76; RESP 17; TEMP 37; O2SAT 100
[2024-06-19 15:47] VITALS: BMI 25.4
--- NOTE | 2024-06-19 15:53 | CASEMGMT ---
Care Management Face to Face with patient for initial transition planning/care coordination assessment.? This advertising copywriter introduced self and role at [facility]. Patient lying in bed in the Emergency Department, alert and oriented. Patient willing to participate in assessment and is able to answer all questions appropriately.? Care providers, pharmacy, and demographics verified. Admitting Diagnosis: Abdominal pain; DKA Other diagnosis history: Patient reports seizure disorder (dx 6 year ago), depression, anxiety and PTSD; History of diabetes, stroke and [place]. Refer to H&P for details of full medical history. PCP: Dr. Maldonado Specialists: Dr. Santamaria/Gastroenterology, Dr. Burnett/neurology Preferred Pharmacy: [facility], delivers to home and in blister packs. Insurance: Beam. - has immigration case worker through [employer], Estela. Prescription Benefit:? Yes Living Will/HPOA: Completed and scanned into the EMR, sister Lashay Ochoa. LNOK: Sister Lashay lives in [place], does have a brother who is in the [place] area. Living Arrangements: Reports to live in an apartment, one story, about 5 steps to enter from the deck. Reports independence at home with self care, and denies any safety concerns at home or with the quality or condition of the home. Reports has had this place to live fro about 5 years now. Transportation: Reports to use the local bus system, has taxi passes and uses [employer], will use [employer] through insurance, and has used the [facility] van service when going home from the hospital. DME: Patient reports [employer] button, and past CM assessment a glucometer and Pulse ox meter. HHC: No History SNF: No history Behavioral Health - Reports a couple of years ago was hospitalized for mental health due to a breakdown. Reports felt better after seeking treatment. Denies any counseling or desire for mental health resources. Reports to know how to reach 24 hour nurse line should patient have emotional distress in the future. Reports some occasional marijuana use when visiting family in [place] but reports does not partake on a regular basis. Patient reports it has been some time since last drank, due to pancreatitis. Record indicates last alcohol use 2 motHs ago. Patient goals: To return home. To feel better and find source of current abdominal pain. Disposition Plan: Home, though Care Management team remains available for support and discharge planning needs as indicated. -CATHI Medeiros
[2024-06-19 15:57] VITALS: BP 133/81; PULSE 89; RESP 16; TEMP 36.8; O2SAT 96
[2024-06-19] MEDS: Dextrose 10%-Water 250 ML 999 ML IV ×2 (16:06→19:49)
[2024-06-19] MEDS: 0.9% Normal Saline (1000mL) 1,000 ML 250 ML IV ×2 (16:07→21:46)
[2024-06-19] MEDS: Insulin Lispro 10 UNIT in Syringe 0 ML 6 UNIT IV ×2 (16:07→20:01)
[2024-06-19 16:15] LABS: Bedside Glucose 95 mg/dL (74-106)
[2024-06-19 16:40] LABS: Anion Gap 13 (5-15); BUN 14 mg/dL (7-18); BUN/Creat Ratio 13.3 RATIO (10-20); Calcium,Total 8.5 mg/dL (8.5-10.1); Chloride 104 mmol/L (98-107); Creatinine, Serum 1.05 mg/dL (0.70-1.30); EST Glomerular Filtration Rate 77 mL/min (>60); Est Glom Filt Rate - Afr Amer 93 mL/min (>60); Estimated Creatinine Clearance 78.21 ml/min; Glucose 98 mg/dL (74-106); Magnesium 1.7 mg/dL (1.6-2.6); Potassium 4.3 mmol/L (3.5-5.1); Sodium Level 136 mmol/L (136-145)
[2024-06-19] MEDS: Creon 12,000 unit DR CapSULE PO (17:41)
[2024-06-19] MEDS: Insulin Lispro 100 UNIT/ML INSULN.PEN SC (17:45)
[2024-06-19] MEDS: levOCARNitine 330 MG TABLET 660 MG PO (17:46)
[2024-06-19 17:53] LABS: Reflex Lactate? Y
[2024-06-19 18:00] LABS: Bedside Glucose 166 mg/dL (74-106)
[2024-06-19 18:44] LABS: Lactic Acid 5.5 mmol/L (0.4-1.9)
[2024-06-19 18:56] LABS: Anion Gap 13 (5-15); BUN 13 mg/dL (7-18); BUN/Creat Ratio 10.3 RATIO (10-20); Calcium,Total 8.2 mg/dL (8.5-10.1); Chloride 103 mmol/L (98-107); Creatinine, Serum 1.26 mg/dL (0.70-1.30); EST Glomerular Filtration Rate 62 mL/min (>60); Est Glom Filt Rate - Afr Amer 75 mL/min (>60); Estimated Creatinine Clearance 65.18 ml/min; Glucose 174 mg/dL (74-106); Magnesium 1.6 mg/dL (1.6-2.6); Potassium 3.8 mmol/L (3.5-5.1); Sodium Level 135 mmol/L (136-145)
[2024-06-19] MEDS: Amitriptyline 25 MG Tablet PO (20:06)
[2024-06-19] MEDS: Magnesium Sulfate 4gm/100mL 4 GM/100 ML IV.SOLN. IV (20:06)
[2024-06-19] MEDS: Gabapentin 300 MG Capsule PO (20:17)
[2024-06-19] MEDS: Ursodiol 250 MG Tablet PO (20:17)
[2024-06-19] MEDS: levETIRAcetam 500 MG Tablet PO (20:17)
[2024-06-19 22:00] VITALS: BP 142/82; PULSE 88; RESP 16; TEMP 36.7; O2SAT 97
[2024-06-19 22:05] LABS: Bedside Glucose 58 mg/dL (74-106)
[2024-06-19 22:22] LABS: Lactic Acid 2.6 mmol/L (0.4-1.9)
[2024-06-19] MEDS: Insulin Glargine-YFGN 100 UNIT/ML Pen SC (22:40)
[2024-06-19 22:59] LABS: Bedside Glucose 130 mg/dL (74-106)
[2024-06-19 23:53] LABS: Anion Gap 9 (5-15); BUN 12 mg/dL (7-18); BUN/Creat Ratio 14.1 RATIO (10-20); Calcium,Total 8.8 mg/dL (8.5-10.1); Chloride 106 mmol/L (98-107); Creatinine, Serum 0.85 mg/dL (0.70-1.30); EST Glomerular Filtration Rate 98 mL/min (>60); Est Glom Filt Rate - Afr Amer 118 mL/min (>60); Estimated Creatinine Clearance 96.62 ml/min; Glucose 145 mg/dL (74-106); Magnesium 2.8 mg/dL (1.6-2.6); Potassium 3.3 mmol/L (3.5-5.1); Sodium Level 138 mmol/L (136-145)
[2024-06-20 00:29] LABS: Bedside Glucose 166 mg/dL (74-106)
[2024-06-20 01:43] LABS: Reflex Lactate? Y
[2024-06-20] MEDS: Insulin Lispro 100 UNIT/ML INSULN.PEN SC ×4 (02:11→21:40)
[2024-06-20] MEDS: 0.9% Normal Saline (1000mL) 1,000 ML 125 ML IV (02:12)
[2024-06-20 03:23] VITALS: BMI 25.7
[2024-06-20 03:44] LABS: Absolute Neutrophil Count 6.5 X10^3/uL (2.0-7.7); Basophil# 0.04 X10^3/uL; Basophil% 0.4 % (0-1); Eosinophil# 0.06 X10^3/uL; Eosinophils% 0.6 % (0-5); Hematocrit 40.5 % (40-54); Hemoglobin 13.5 g/dL (13.0-16.5); Lymphocyte % 19.5 % (19-41); Mean Corp Hgb Conc 33.3 g/dL (32-36); Mean Corpuscular Hgb 30.9 pg (27.0-32.0); Mean Corpuscular Volume 92.7 fL (80-94); Mean Platelet Vol. 9.4 fl (6.2-12.0); Monocyte# 0.85 X10^3/uL; Monocyte% 9.2 % (0-10); NRBC Flagged by Analyzer 0 % (0-5); Neutrophil # 6.45 X10^3/uL (2.7-7.7); Neutrophil % 69.9 % (47-70); Platelet Count 180 K/mm3 (150-450); RBC Distribution Width CV 12.4 % (11.6-14.6); RBC Distribution Width SD 42.4 fl (35.1-43.9); Red Blood Count 4.37 M/mm3 (4.6-6.2); White Blood Count 9.2 K/mm3 (4.4-11.0)
[2024-06-20 04:00] VITALS: BP 132/88; PULSE 97; RESP 15; TEMP 36.1; O2SAT 96
[2024-06-20 04:02] LABS: ALB/GLOB Ratio 1.1 RATIO (0.9-2.4); AST(SGOT) 22 U/L (15-37); Alanine Aminotransfer ALT/SGPT 22 U/L (16-61); Albumin, Serum 3.7 g/dL (3.2-5.0); Alkaline Phosphatase 67 U/L (45-117); Anion Gap 7 (5-15); BUN 9 mg/dL (7-18); BUN/Creat Ratio 9.4 RATIO (10-20); Calcium,Total 8.7 mg/dL (8.5-10.1); Chloride 106 mmol/L (98-107); Creatinine, Serum 0.96 mg/dL (0.70-1.30); EST Glomerular Filtration Rate 86 mL/min (>60); Est Glom Filt Rate - Afr Amer 104 mL/min (>60); Estimated Creatinine Clearance 85.55 ml/min; Globulin 3.4 g/dL (2.2-4.2); Glucose 135 mg/dL (74-106); Magnesium 2.6 mg/dL (1.6-2.6); Phosphorus 1.7 mg/dL (2.5-4.9); Potassium 3.8 mmol/L (3.5-5.1); Protein, Total 7.1 g/dL (6.4-8.2); Sodium Level 138 mmol/L (136-145)
[2024-06-20 04:19] LABS: Lactic Acid 0.7 mmol/L (0.4-1.9)
[2024-06-20] MEDS: HYDROmorphone 0.5 MG/0.5 ML SYRINGE IV (06:19)
[2024-06-20] MEDS: DiphenhydrAMINE 50 MG/ML Syringe 25 MG IV (06:19)
[2024-06-20 06:33] LABS: Bedside Glucose 103 mg/dL (74-106)
[2024-06-20 07:21] LABS: Anion Gap 6 (5-15); BUN 9 mg/dL (7-18); BUN/Creat Ratio 11.1 RATIO (10-20); Calcium,Total 8.6 mg/dL (8.5-10.1); Chloride 106 mmol/L (98-107); Creatinine, Serum 0.81 mg/dL (0.70-1.30); EST Glomerular Filtration Rate 103 mL/min (>60); Est Glom Filt Rate - Afr Amer 125 mL/min (>60); Estimated Creatinine Clearance 101.39 ml/min; Glucose 98 mg/dL (74-106); Potassium 3.6 mmol/L (3.5-5.1); Sodium Level 137 mmol/L (136-145)
[2024-06-20 07:55] LABS: Hemoglobin A1c 6.9 % (3.8-5.6)
[2024-06-20] MEDS: Creon 12,000 unit DR CapSULE PO ×3 (08:26→17:05)
[2024-06-20] MEDS: levOCARNitine 330 MG TABLET 660 MG PO ×2 (08:27→17:05)
[2024-06-20] MEDS: Aspirin E.C. 81 MG Tablet PO (08:27)
[2024-06-20 10:00] VITALS: BP 144/94; PULSE 79; RESP 16; TEMP 36.4; O2SAT 98
[2024-06-20] MEDS: Potassium Phosphate 30 MM in 0.9% Normal Saline (250mL Bag) 250 ML 42 MM IV (10:00)
[2024-06-20] MEDS: Tamsulosin HCl 0.4 MG Capsule PO (10:00)
[2024-06-20] MEDS: Gabapentin 300 MG Capsule PO ×2 (10:01→20:18)
[2024-06-20] MEDS: Escitalopram Oxalate 10 MG Tablet PO (10:01)
[2024-06-20] MEDS: levETIRAcetam 500 MG Tablet PO ×2 (10:01→20:15)
[2024-06-20] MEDS: Pantoprazole Sodium 40 MG Tablet PO (10:01)
[2024-06-20] MEDS: Enoxaparin 40 MG/0.4 ML Syringe SC (10:01)
[2024-06-20] MEDS: Ursodiol 250 MG Tablet PO ×2 (10:02→20:15)
[2024-06-20 10:26] LABS: Bedside Glucose 170 mg/dL (74-106)
--- NOTE | 2024-06-20 11:12 | PCM.PN.HOSP ---
Subjective Subjective Doing well, no issues overnight. Gap is closed however phosphorus is very low Objective Data Objective Data Vital Signs: Vital Signs Temp Pulse Resp BP Pulse Ox O2 Del Method 96.9 F L 97 15 132/88 H 96 Room Air 06/20/24 04:00 06/20/24 04:00 06/20/24 04:00 06/20/24 04:00 06/20/24 04:00 06/20/24 04:00 Oxygen Delivery Method Room Air Weight: 179 lb 10.828 oz Body Mass Index (BMI) 25.7 Intake & Output: Intake and Output for Last 24 Hours 06/19/24 06/20/24 06/21/24 03:59 03:59 03:59 Intake Total 4600 / 4600 1000 / 1000 Output Total 0 / 0 Balance 4600 / 4600 1000 / 1000 Lab / Micro Data 06/20/24 03:14 06/20/24 06:49 Labs: Laboratory Results - last 24 hr 06/19/24 11:33: WBC 14.1 H, RBC 4.84, Hgb 14.8, Hct 45.3, MCV 93.6, MCH 30.6, MCHC 32.7, RDW Std Deviation 43.0, RDW Coeff of Armin 12.4, Plt Count 235, MPV 9.3, Immature Gran % (Auto) 0.700, Neut % (Auto) 78.6 H, Lymph % (Auto) 14.8 L, [place] % (Auto) 5.2, Eos % (Auto) 0.1, Baso % (Auto) 0.6, Absolute Neuts (auto) 11.1 H, Absolute Lymphs (auto) 2.09, Nucleated RBC % 0, Sodium 134 L, Potassium 3.9, Chloride 100, Carbon Dioxide 13.0 L, Anion Gap 22 H, BUN 15, Creatinine 1.14, Estim Creat Clear Calc 72.04, Est GFR (MDRD) Af Amer 85, Est GFR (MDRD) Non-Af 70, BUN/Creatinine Ratio 13.2, Glucose 93, Calcium 9.6, Total Bilirubin 0.60, AST 23, ALT 27, Alkaline Phosphatase 73, Total Protein 8.1, Albumin 4.2, Globulin 3.9, Albumin/Globulin Ratio 1.1, Lipase 109 H 06/19/24 13:45: Sodium 135 L, Potassium 4.4, Chloride 102, Carbon Dioxide 17.0 L, Anion Gap 16 H, BUN 15, Creatinine 1.09, Estim Creat Clear Calc 75.34, Est GFR (MDRD) Af Amer 89, Est GFR (MDRD) Non-Af 74, BUN/Creatinine Ratio 13.8, Glucose 111 H, Lactic Acid 3.0 H*, Calcium 9.2, Urine Color Yellow, Urine Clarity Sl. Cloudy, Urine pH 5.0, Ur Specific [place] 1.025, Urine Protein 100 H, Urine Glucose (UA) 1000 H, Urine Ketones 150 A*, Urine Occult Blood Negative, Urine Nitrite Negative, Urine Bilirubin Negative, Urine Urobilinogen Normal, Ur Leukocyte Esterase Negative, Urine RBC 0 SEEN, Urine WBC 0 SEEN, Ur Squamous Epith Cells 0-5 SEEN, Urine Bacteria 1+, Urine Mucus 0 SEEN, Acetone Level SMALL H 06/19/24 15:46: POC Glucose 95 06/19/24 16:14: Sodium 136, Potassium 4.3, Chloride 104, Carbon Dioxide 19.0 L, Anion Gap 13, BUN 14, Creatinine 1.05, Estim Creat Clear Calc 78.21, Est GFR (MDRD) Af Amer 93, Est GFR (MDRD) Non-Af 77, BUN/Creatinine Ratio 13.3, Glucose 98, Calcium 8.5, Magnesium 1.7 06/19/24 17:43: POC Glucose 166 H 06/19/24 18:04: Lactic Acid 5.5 H* 06/19/24 18:08: Sodium 135 L, Potassium 3.8, Chloride 103, Carbon Dioxide 19.0 L, Anion Gap 13, BUN 13, Creatinine 1.26, Estim Creat Clear Calc 65.18, Est GFR (MDRD) Af Amer 75, Est GFR (MDRD) Non-Af 62, BUN/Creatinine Ratio 10.3, Glucose 174 H, Calcium 8.2 L, Magnesium 1.6 06/19/24 21:30: Lactic Acid 2.6 H* 06/19/24 21:42: POC Glucose 58 L 06/19/24 22:37: POC Glucose 130 H 06/19/24 23:22: Sodium 138, Potassium 3.3 L, Chloride 106, Carbon Dioxide 23.0, Anion Gap 9, BUN 12, Creatinine 0.85, Estim Creat Clear Calc 96.62, Est GFR (MDRD) Af Amer 118, Est GFR (MDRD) Non-Af 98, BUN/Creatinine Ratio 14.1, Glucose 145 H, Calcium 8.8, Magnesium 2.8 H 06/20/24 00:10: POC Glucose 166 H 06/20/24 03:14: WBC 9.2, RBC 4.37 L, Hgb 13.5, Hct 40.5, MCV 92.7, MCH 30.9, MCHC 33.3, RDW Std Deviation 42.4, RDW Coeff of Armin 12.4, Plt Count 180, MPV 9.4, Immature Gran % (Auto) 0.400, Neut % (Auto) 69.9, Lymph % (Auto) 19.5, [place] % (Auto) 9.2, Eos % (Auto) 0.6, Baso % (Auto) 0.4, Absolute Neuts (auto) 6.5, Absolute Lymphs (auto) 1.80, Nucleated RBC % 0, Sodium 138, Potassium 3.8, Chloride 106, Carbon Dioxide 26.0, Anion Gap 7, BUN 9, Creatinine 0.96, Estim Creat Clear Calc 85.55, Est GFR (MDRD) Af Amer 104, Est GFR (MDRD) Non-Af 86, BUN/Creatinine Ratio 9.4 L, Glucose 135 H, Hemoglobin A1c 6.9 H, Lactic Acid 0.7, Calcium 8.7, Phosphorus 1.7 L, Magnesium 2.6, Total Bilirubin 1.00, AST 22, ALT 22, Alkaline Phosphatase 67, Total Protein 7.1, Albumin 3.7, Globulin 3.4, Albumin/Globulin Ratio 1.1 06/20/24 06:12: POC Glucose 103 06/20/24 06:49: Sodium 137, Potassium 3.6, Chloride 106, Carbon Dioxide 24.0, Anion Gap 6, BUN 9, Creatinine 0.81, Estim Creat Clear Calc 101.39, Est GFR (MDRD) Af Amer 125, Est GFR (MDRD) Non-Af 103, BUN/Creatinine Ratio 11.1, Glucose 98, Calcium 8.6 06/20/24 09:58: POC Glucose 170 H ABG Data ABG results: ABG 06/19/24 13:43 Specimen Type ART Sample Site L Radial pH 7.37 Bicarbonate Actual 18.2 L Total CO2 19 Base Excess -7 L O2 Saturation 94 L O2 % 21.0 ABG pCO2 31.3 L ABG pO2 73 L Deion Test Positive O2 Delivery Device Room Air Vent Mode Not entered Radiography Diagnostic Testing: Radiology Impression Abdomen/Pelvis CT 06/19/24 11:32 IMPRESSION: Status post cholecystectomy. Fatty eventration of the liver and mild hepatomegaly. Prostatic enlargement. Electronically Signed: Brendan Ty MD at 12:02 EDT , Physical Exam Narrative General: Alert, Oriented x3, Cooperative, No apparent distress HEENT: Atraumatic, PERRLA, EOMI, Normocephalic Oral: Moist Mucosa Neck: Supple, No JVD Lungs: Diminished, Normal air movement, No rhonchi, No wheeze, No rales Cardiovascular: Regular rate, Regular Rhythm, Normal S1, Normal S2, No murmurs Abdomen: Soft, Non Tender, Non-Distended, No Hepato-splenomegaly Extremities: No edema, Capillary Refill Less than 3 Seconds Skin: No rashes, No breakdown Musculoskeletal: No Tenderness to Palpation of Joints or Extremities Neurological: No focal neurological deficits, Motor Exam 5/5 strength throughout, sensation diminished lower extremities Psych/Mental Status: Normal Affect, Appropriate Assessment & Plan Assessment/Plan (1) DKA (diabetic ketoacidoses): PLAN: Plan 1. Metabolic acidosis secondary to euglycemic DKA in the setting of type 2 diabetes on an SGLT2 inhibitor/hypophosphatemia ? Gap is closed ? Acidosis has resolved ? Continue with insulin and his home medications ? Will have to hold his SGLT2 on discharge ? A1c of 6.9 can DC IV fluids and change his insulin to ACHS and advance his diet with a carb controlled ? Will replace his phosphorus today, and recheck it in the morning but 2. Essential HTN/HLD ? Blood pressures are stable ? Can resume his home blood pressure medications if necessary ? Continue with his home statin ? Will monitor and make adjustments as necessary 3. History of chronic pancreatitis with fatty liver ? Continue with his Creon ? Continue with outpatient management 4. GERD ? Stable ? Continue with PPI 5. Seizure disorder ? Stable ? Continue with Keppra 6. BPH ? Stable ? Continue with his home medications DVT: Lovenox Charges/Coding Visit Charges Inpatient E&M: 04257 Subs Hosp L2
[2024-06-20 11:19] LABS: Anion Gap 6 (5-15); BUN 7 mg/dL (7-18); BUN/Creat Ratio 7.8 RATIO (10-20); Calcium,Total 8.7 mg/dL (8.5-10.1); Chloride 104 mmol/L (98-107); EST Glomerular Filtration Rate 92 mL/min (>60); Est Glom Filt Rate - Afr Amer 111 mL/min (>60); Estimated Creatinine Clearance 91.25 ml/min; Glucose 75 mg/dL (74-106); Potassium 3.5 mmol/L (3.5-5.1); Sodium Level 138 mmol/L (136-145)
[2024-06-20] MEDS: oxyCODONE 5 MG Tablet PO ×2 (15:22→20:14)
[2024-06-20 16:00] VITALS: BP 137/88; PULSE 93; RESP 16; TEMP 36.4; O2SAT 100
[2024-06-20 17:25] LABS: Bedside Glucose 220 mg/dL (74-106)
[2024-06-20] MEDS: Pravastatin 20 MG Tablet PO (20:15)
[2024-06-20] MEDS: Amitriptyline 25 MG Tablet PO (20:15)
[2024-06-20] MEDS: Insulin Glargine-YFGN 100 UNIT/ML Pen SC (21:41)
[2024-06-20 22:00] VITALS: BP 150/90; PULSE 99; RESP 15; TEMP 36.4; O2SAT 94
[2024-06-20 22:19] LABS: Bedside Glucose 197 mg/dL (74-106)
[2024-06-21 03:10] VITALS: BMI 25.9
[2024-06-21 04:00] VITALS: BP 150/90; PULSE 99; RESP 15; TEMP 36.4; O2SAT 94
[2024-06-21 06:48] LABS: Bedside Glucose 148 mg/dL (74-106)
[2024-06-21 08:11] LABS: Anion Gap 9 (5-15); BUN 7 mg/dL (7-18); BUN/Creat Ratio 8.2 RATIO (10-20); Calcium,Total 8.8 mg/dL (8.5-10.1); Chloride 106 mmol/L (98-107); Creatinine, Serum 0.85 mg/dL (0.70-1.30); EST Glomerular Filtration Rate 98 mL/min (>60); Est Glom Filt Rate - Afr Amer 118 mL/min (>60); Estimated Creatinine Clearance 96.62 ml/min; Glucose 133 mg/dL (74-106); Phosphorus 2.7 mg/dL (2.5-4.9); Potassium 3.3 mmol/L (3.5-5.1); Sodium Level 139 mmol/L (136-145)
[2024-06-21] MEDS: Creon 12,000 unit DR CapSULE PO ×2 (08:24→11:33)
[2024-06-21] MEDS: Aspirin E.C. 81 MG Tablet PO (08:24)
[2024-06-21] MEDS: Tamsulosin HCl 0.4 MG Capsule PO (08:25)
[2024-06-21] MEDS: levOCARNitine 330 MG TABLET 660 MG PO (08:25)
[2024-06-21 10:00] VITALS: BP 146/104; PULSE 97; RESP 16; TEMP 36.7; O2SAT 100
[2024-06-21] MEDS: Potassium Chloride Oral Tablet 20 MEQ 60 MEQ PO (10:16)
[2024-06-21] MEDS: Gabapentin 300 MG Capsule PO (10:16)
[2024-06-21] MEDS: Escitalopram Oxalate 10 MG Tablet PO (10:16)
[2024-06-21] MEDS: levETIRAcetam 500 MG Tablet PO (10:17)
[2024-06-21] MEDS: Enoxaparin 40 MG/0.4 ML Syringe SC (10:17)
[2024-06-21] MEDS: Ursodiol 250 MG Tablet PO (10:17)
[2024-06-21] MEDS: Pantoprazole Sodium 40 MG Tablet PO (10:17)
[2024-06-21] MEDS: oxyCODONE 5 MG Tablet PO (10:24)
[2024-06-21] MEDS: Senna/Docusate Sodium 1 Tablet 2 TABLET PO (10:24)
[2024-06-21] MEDS: hydroCHLOROthiazide 25 MG Tablet PO (10:58)
[2024-06-21] MEDS: Losartan Potassium 25 MG Tablet PO (10:58)
[2024-06-21] MEDS: amLODIPine 10 MG Tablet PO (10:58)
--- NOTE | 2024-06-21 11:10 | DCINST_ITS ---
Discharge Instructions Diet Discharge Diet: Low fat / Low cholesterol and Carb Control Diet Activity Discharge Activity: Return to Normal Activity Dressing / Incision Call your doctor if you observe: Fever of 101 or Higher, Shortness of breath, Dizziness, Fainting spells, Swelling in the ankles, Chest pain and Increased palpitations (irregular heartbeat) Follow Up Care Test Results: Test results from this visit will be discussed in further detail at your follow- up appointment, if applicable. Discharge Plan Admission Admit Date/Time: 06/19/24 14:23 Attending Provider: Dillon Harrell Primary Care Provider: Lobito Maldonado Consulting Providers: Roxana Cox Discharge Orders/Prescriptions Prescriptions: New oxycodone 5 mg Tablet 5 mg PO BIDCM PRN (Reason: Pain Score 4-10) 3 Days Qty: 10 0RF Continued amitriptyline 25 mg tablet 25 mg PO QHS gabapentin 300 mg capsule 300 mg PO BID levetiracetam 500 mg tablet 500 mg PO BID Qty: 60 11RF levocarnitine 330 mg tablet 660 mg PO BID Qty: 120 11RF Rx Instructions: must administer with a meal/food cholecalciferol (vitamin D3) 5,000 capsule 1 cap PO DAILY metformin 500 MG tablet 500 mg PO BID Qty: 0 0RF aspirin 81 mg Tablet,Delayed Release (Dr/Ec) 81 mg PO DAILY losartan 25 mg tablet 25 mg PO DAILY escitalopram oxalate 10 mg tablet 10 mg PO DAILY ondansetron 4 mg tablet,disintegrating 4 mg PO TID PRN (Reason: nausea and vomiting) Qty: 21 0RF tamsulosin 0.4 mg Capsule 0.4 mg PO DAILY@1730 30 Days Qty: 30 0RF pantoprazole [Protonix] 40 mg tablet,delayed release (DR/EC) 40 mg PO DAILY Qty: 30 0RF latanoprost 0.005 % drops 1 drp ophthalmic (eye) QHS magnesium oxide 400 mg (241.3 mg magnesium) tablet 400 mg PO BID pravastatin 20 mg tablet 20 mg PO DAILY loratadine 10 mg tablet 10 mg PO DAILY insulin glargine [Lantus Solostar U-100 Insulin] 100 unit/mL (3 mL) insulin pen 10 unit subcut QHS Jardiance 10 mg tablet 10 mg PO DAILY ondansetron 4 mg tablet,disintegrating 4 mg PO Q8H PRN PRN (Reason: Nausea) Qty: 20 0RF hydrochlorothiazide 25 mg tablet 25 mg PO DAILY Qty: 30 11RF ursodiol 250 mg tablet 250 mg PO BID Qty: 180 2RF Creon 12,000-38,000 -60,000 unit capsule,delayed release(DR/EC) 2 cap PO .COMPLEX Qty: 300 11RF Rx Instructions: 2 caps orally ; take 1-2 with snacks and 2-3 with meals; amlodipine 10 mg tablet 10 mg PO DAILY Qty: 90 3RF Referrals / Follow Up: Lobito Maldonado MD [Primary Care Provider] - Within 1 Week Disposition Disposition (needs filled in before D/C Order can be placed): Home, Self Care
--- NOTE | 2024-06-21 11:26 | CASEMGMT ---
Patient has order to discharge. RN CM in to discuss needs at discharge. Patient states he has glucometer and supplies at home. Patient inquired if [facility] Van can take patient home, nursing arranged for pickup at 1300. Patient denied needs or help at discharge. Patient had no further questions or concerns.
[2024-06-21] MEDS: Insulin Lispro 100 UNIT/ML INSULN.PEN SC (11:32)
[2024-06-21 11:53] LABS: Bedside Glucose 181 mg/dL (74-106)
--- NOTE | 2024-06-21 14:23 | PCM.DC.SUM ---
Providers Date of Admission: 06/19/24 Primary Care Physician: Dr. Lobito Maldonado MD Reason For Visit: EUGLYCEMIC DKA Diagnosis Discharge Diagnosis (1) DKA (diabetic ketoacidoses): Status: Acute Code(s): E11.10 - Type 2 diabetes mellitus with ketoacidosis without coma Medications at Discharge Home Medications amitriptyline 25 mg tablet 25 mg PO QHS depression 07/03/18 cholecalciferol (vitamin D3) 125 mcg (5,000 unit) capsule 1 cap PO DAILY supplement 11/09/18 hydrochlorothiazide 25 mg tablet 25 mg PO DAILY blood pressure/heart #30 tabs 06/05/20 gabapentin 300 mg capsule 300 mg PO BID nerve pain 10/06/20 metformin 500 mg tablet 500 mg PO BID diabetes #0 tabs 03/04/22 aspirin 81 mg tablet,delayed release 81 mg PO DAILY heart health 07/04/22 escitalopram oxalate 10 mg tablet 10 mg PO DAILY depression 07/04/22 losartan 25 mg tablet 25 mg PO DAILY blood pressure 07/04/22 ondansetron 4 mg disintegrating tablet 4 mg PO TID PRN nausea and vomiting #21 tabs 01/07/24 pantoprazole 40 mg tablet,delayed release (Protonix) 40 mg PO DAILY reflux #30 tabs 01/08/24 tamsulosin 0.4 mg capsule 0.4 mg PO DAILY@1730 prostate 30 days #30 caps 01/08/24 ursodiol 250 mg tablet 250 mg PO BID #180 TABLETS 01/29/24 [id number] 12,000-38,000-60,000 unit capsule,delayed rel (Creon) 2 cap PO .COMPLEX #300 caps 02/08/24 empagliflozin 10 mg tablet (Jardiance) 10 mg PO DAILY diabetes 02/25/24 insulin glargine 100 unit/mL (3 mL) subcutaneous pen (Lantus Solostar U-100 Insulin) 10 unit subcut QHS diabetes 02/25/24 latanoprost 0.005 % eye drops 1 drp ophthalmic (eye) QHS eye health 02/25/24 loratadine 10 mg tablet 10 mg PO DAILY allergies 02/25/24 magnesium oxide 400 mg (241.3 mg magnesium) tablet 400 mg PO BID 02/25/24 ondansetron 4 mg disintegrating tablet 4 mg PO Q8H PRN PRN Nausea #20 tabs 02/25/24 pravastatin 20 mg tablet 20 mg PO DAILY cholesterol 02/25/24 levetiracetam 500 mg tablet 500 mg PO BID #60 tabs 04/18/24 levocarnitine 330 mg tablet 660 mg (2 x 330 mg) PO BID #120 tabs 04/18/24 amlodipine 10 mg tablet 10 mg PO DAILY blood pressure #90 tabs 05/24/24 oxycodone 5 mg tablet 5 mg PO BIDCM PRN Pain Score 4-10 3 days #10 tabs 06/21/24 Hospital Course Operations None Procedures None Summary of Care Provided Minutes Spent on Discharge: 37 Hospital Course: Per HPI: BRANDON WELLER, is a 59-year-old male history of chronic pancreatitis, fatty liver, seizure disorder, GERD, hypertension, diabetes, BPH presented to [facility] ED 06/19/2024 due to epigastric pain that began the day prior. Patient had been in his usual health until yesterday when he began to have epigastric pain radiating towards the right side of his abdomen, has been progressively worse prompting him to come to the ED. Patient is also experienced nausea but has not had significant vomiting as he took Zofran at home. Denies any diarrhea or constipation, no fevers or chills, ROS otherwise negative. Patient reports he has not drink in 2 months and has not smoked cigarettes in 9 years, denies any other substance use aside from occasional marijuana. In the ED patient had white blood cell count of 14.1, anion gap of 22 with a carbon dioxide of 13. He was initially thought that maybe he had recurrent pancreatitis however lipase only [address] abdomen without signs of pancreatitis so further workup for patient's high anion gap metabolic acidosis ordered and hospitalist contacted for admission. Patient evaluated at bedside and reports history as above, no chest pain or shortness of breath, no cough, no burning on urination or other urinary symptoms. No new cuts or rashes or bleeding, bruising, injury. Labs did result with ketones in urine and acetone in blood however with IV fluids Starting to close and tachycardia improving so we will send him to PCU with subcu insulin/push dextrose and continue IV fluids. Hospital Course: 1. Metabolic acidosis secondary to DKA in the setting of type 2 diabetes on SGLT2 inhibitor/hypophosphatemia?59-year-old male presented to the hospital with euglycemic DKA in the setting of type 2 diabetes on SGLT2 inhibitor. Will hold this on discharge until he can follow-up with his PCP, his hemoglobin is 6.9 so he should be able to tolerate withdrawal of this medication from his regimen. He is also been complaining of abdominal pain as he does have chronic pancreatitis. He did request oxycodone for a few days on discharge because of this pain. He did have significant and quick resolution of his acidosis yesterday his phosphorus was low and this was replaced and did not need further replacement today. I discussed with him the possibility of discharge and he expressed understanding of the risk benefits of going home and would like to go home today. 2. Essential hypertension, hyperlipidemia, chronic pancreatitis, fatty liver, GERD, seizure disorder, BPH are all chronic medical conditions which complicate his care. His home medications were continued where appropriate Physical Exam Narrative General: Alert, Oriented x3, Cooperative, No apparent distress HEENT: Atraumatic, PERRLA, EOMI, Normocephalic Oral: Moist Mucosa Neck: Supple, No JVD Lungs: Diminished, Normal air movement, No rhonchi, No wheeze, No rales Cardiovascular: Regular rate, Regular Rhythm, Normal S1, Normal S2, No murmurs Abdomen: Soft, Non Tender, Non-Distended, No Hepato-splenomegaly Extremities: No edema, Capillary Refill Less than 3 Seconds Skin: No rashes, No breakdown Musculoskeletal: No Tenderness to Palpation of Joints or Extremities Neurological: No focal neurological deficits, Motor Exam 5/5 strength throughout, sensation diminished lower extremities Psych/Mental Status: Normal Affect, Appropriate Weight / BMI Weight Weight: 180 lb 12.465 oz Body Mass Index (BMI) 25.9 ABG / Lab / Microbiology Data 06/20/24 03:14 06/21/24 06:14 Laboratory: Laboratory Results - last 24 hr 06/20/24 17:03: POC Glucose 220 H 06/20/24 21:36: POC Glucose 197 H 06/21/24 06:14: Sodium 139, Potassium 3.3 L, Chloride 106, Carbon Dioxide 24.0, Anion Gap 9, BUN 7, Creatinine 0.85, Estim Creat Clear Calc 96.62, Est GFR (MDRD) Af Amer 118, Est GFR (MDRD) Non-Af 98, BUN/Creatinine Ratio 8.2 L, Glucose 133 H, Calcium 8.8, Phosphorus 2.7 06/21/24 06:27: POC Glucose 148 H 06/21/24 11:31: POC Glucose 181 H D/C Instructions Discharge Diet: Low fat / Low cholesterol and Carb Control Diet Call your doctor if you observe: Fever of 101 or Higher, Shortness of breath, Dizziness, Fainting spells, Swelling in the ankles, Chest pain and Increased palpitations (irregular heartbeat) Meaningful Use Info Meaningful Use Meaningful Use Diagnoses (Choose all that apply): None applicable Ischemic Stroke Statin Dosing Therapy Reference: STATIN DOSE THERAPY REFERENCE: * Patients > 75 years receive moderate or high dose statin therapy. * Patients 75 years or YOUNGER should receive HIGH intensity statin dose unless contraindicated. You will be required to document reason for non-treatment if statin daily dose does not meet guidelines. HIGH DOSE STATIN THERAPY DAILY Atorvastatin > than or = to 40 mg Rosuvastatin > than or = to 20 mg Amlodipine + Atorvastatin > than or = to 2.5/40 mg Ezetimibe + Simvastatin 10/80 mg Simvastatin 80mg Discharge Plan Admission Admit Date/Time: 06/19/24 14:23 Attending Provider: Dillon Harrell Primary Care Provider: Lobito Maldonado Consulting Providers: Roxana Cox Discharge Orders/Prescriptions Prescriptions: New oxycodone 5 mg Tablet 5 mg PO BIDCM PRN (Reason: Pain Score 4-10) 3 Days Qty: 10 0RF Continued amitriptyline 25 mg tablet 25 mg PO QHS gabapentin 300 mg capsule 300 mg PO BID levetiracetam 500 mg tablet 500 mg PO BID Qty: 60 11RF levocarnitine 330 mg tablet 660 mg PO BID Qty: 120 11RF Rx Instructions: must administer with a meal/food cholecalciferol (vitamin D3) 5,000 capsule 1 cap PO DAILY metformin 500 MG tablet 500 mg PO BID Qty: 0 0RF aspirin 81 mg Tablet,Delayed Release (Dr/Ec) 81 mg PO DAILY losartan 25 mg tablet 25 mg PO DAILY escitalopram oxalate 10 mg tablet 10 mg PO DAILY ondansetron 4 mg tablet,disintegrating 4 mg PO TID PRN (Reason: nausea and vomiting) Qty: 21 0RF tamsulosin 0.4 mg Capsule 0.4 mg PO DAILY@1730 30 Days Qty: 30 0RF pantoprazole [Protonix] 40 mg tablet,delayed release (DR/EC) 40 mg PO DAILY Qty: 30 0RF latanoprost 0.005 % drops 1 drp ophthalmic (eye) QHS magnesium oxide 400 mg (241.3 mg magnesium) tablet 400 mg PO BID pravastatin 20 mg tablet 20 mg PO DAILY loratadine 10 mg tablet 10 mg PO DAILY insulin glargine [Lantus Solostar U-100 Insulin] 100 unit/mL (3 mL) insulin pen 10 unit subcut QHS ondansetron 4 mg tablet,disintegrating 4 mg PO Q8H PRN PRN (Reason: Nausea) Qty: 20 0RF hydrochlorothiazide 25 mg tablet 25 mg PO DAILY Qty: 30 11RF ursodiol 250 mg tablet 250 mg PO BID Qty: 180 2RF Creon 12,000-38,000 -60,000 unit capsule,delayed release(DR/EC) 2 cap PO .COMPLEX Qty: 300 11RF Rx Instructions: 2 caps orally ; take 1-2 with snacks and 2-3 with meals; amlodipine 10 mg tablet 10 mg PO DAILY Qty: 90 3RF Held Jardiance 10 mg tablet 10 mg PO DAILY Hold Instructions: Resume on 06/28/24. Referrals / Follow Up: Lobito Maldonado MD [Primary Care Provider] - Within 1 Week Disposition Disposition (needs filled in before D/C Order can be placed): Home, Self Care Charges/Coding Visit Charges Inpatient E&M: 82978 Disch Hosp >30min
== END 2024-06-21 13:00 | disposition home or self-care (01) | DRG 638 ==
LOC: ED 12:18 → PCU 14:42
PROVIDERS: Admitting Provider Internal Medicine; Emergency Provider Emergency Medicine; PCP Internal Medicine; Visit Provider Family Medicine
DX: E11.10 Type 2 diabetes mellitus with ketoacidosis without coma (principal); N13.8 Other obstructive and reflux uropathy; K86.0 Alcohol-induced chronic pancreatitis; E83.39 Other disorders of phosphorus metabolism; K76.0 Fatty (change of) liver, not elsewhere classified; G40.909 Epilepsy, unspecified, not intractable, without status epilepticus; I10 Essential (primary) hypertension; E11.42 Type 2 diabetes mellitus with diabetic polyneuropathy; F32.A Depression, unspecified; F10.11 Alcohol abuse, in remission; E78.5 Hyperlipidemia, unspecified; K21.9 Gastro-esophageal reflux disease without esophagitis; Z79.4 Long term (current) use of insulin; F41.9 Anxiety disorder, unspecified; I25.2 Old myocardial infarction; N40.1 Benign prostatic hyperplasia with lower urinary tract symptoms; Z79.84 Long term (current) use of oral hypoglycemic drugs; Z79.82 Long term (current) use of aspirin; Z79.899 Other long term (current) drug therapy; Z87.891 Personal history of nicotine dependence; Z86.73 Personal history of transient ischemic attack (TIA), and cerebral infarction without residual deficits; Z90.49 Acquired absence of other specified parts of digestive tract
CPT/HCPCS: 36415; 36600; 74176; 80048; 80053; 81001; 82009; 82803; 82962; 83036; 83605; 83690; 83735; 84100; 85025; 93005; 97802; 99282; J7030; J7050; A4216

== ENCOUNTER 2024-08-12 07:20 | Emergency (ER) | payer MEDICARE, MEDICAID, SELFPAY ==
[2024-08-12 07:20] VITALS: BP 134/86; PULSE 102; RESP 14; TEMP 36.6; O2SAT 100; BMI 26.0
--- NOTE | 2024-08-12 07:32 | EDS_ITS ---
HPI HPI - GI History of Present Illness Chief Complaint: Abd Pain Detail of Chief Complaint: Sharp pain epigastric radiating around to the flank then to the left scapul Informant: patient Abdominal Pain/Flank Pain Onset: Days (Onset August 09) Context: Sudden Onset Timing: Continuous Quality: Sharp Location: Epigastric, RUQ and Right Flank Current Severity: Mild Maximum Severity: Moderate Worsened by: Food and - (Even water and what he takes his medication) Nausea/Vomiting/Emesis GI Symptom: Positive for Nausea; Negative for Vomiting Diarrhea/Melena/Hematochezia GI Symptom: Negative for Diarrhea, Melena or Hematochezia Associated Symptoms Associated Symptoms: Negative for Dysuria, Frequency, Hematuria or Urgency LMP: Not applicable Narrative Narrative: Patient is a 59-year-old male. He has history of pancreatitis due to alcoholism. He states he has not had an alcoholic beverage in 1 year. He is status postcholecystectomy. Cholecystectomy performed by Dr. Felix several years ago. Review of records also indicates he has history of fatty liver. There is no history of renal ureterolithiasis. Patient presents because of pain that he describes as sharp in the epigastric going to the right upper quadrant around to the right flank area and then occasionally to the left scapular region. He denies chest pain. He denies dyspnea, dyspnea exertion, orthopnea or PND. He denies fever, chills night sw eats. Nothing makes the pain better. If he drinks water, eats or takes his medication the pain is worse. The pain is not positional. He denies black or maroon- colored stool. He states his stool is brown. He has no history of renal or ureterolithiasis. He denies urologic symptoms. He reports compliance with his medicine and specifically Protonix. Patient states the last time is here is told to stop his Giardia. He was not certain why. Will review prior ER records to determine why he was told this. Patient was seen on June 19, [address] Rogel. He was admitted at that time. Patient was noted to have a high anion gap.Patient was admitted for DKA. The hospitalist note was reviewed. Assessment was DKA causing his abdominal pain. He also has history of chronic pancreatitis and fatty liver. Prior similar symptoms: Yes Recent Illness/Hospitalization: Yes (Seen last month for abdominal pain) [facility] Medical History Bulging disc Liver fibrosis Myocardial infarct Stroke/cerebrovascular accident Alcohol abuse Vision loss of right eye Vision loss of left eye Cancer Neck pain PSA elevation GI bleed TIA (transient ischemic attack) Diabetes Family history of cerebral aneurysm Polyneuropathy Gastric ulcer GERD (gastroesophageal reflux disease) Former tobacco use Constipation Glaucoma Seizure disorder Hyperlipidemia PTSD (post-traumatic stress disorder) Anxiety and depression Essential (primary) hypertension Home Medications ?Medication ?Instructions ?Recorded ?Last Taken ?Type amitriptyline 25 mg tablet 25 mg PO QHS depression 07/03/18 01/06/24 History cholecalciferol (vitamin D3) 125 1 cap PO DAILY supplement 11/09/18 01/06/24 History mcg (5,000 unit) capsule hydrochlorothiazide 25 mg tablet 25 mg PO DAILY blood 06/05/20 01/06/24 Rx pressure/heart #30 tabs gabapentin 300 mg capsule 300 mg PO BID nerve pain 10/06/20 01/06/24 History metformin 500 mg tablet 500 mg PO BID diabetes #0 tabs 03/04/22 01/06/24 Rx aspirin 81 mg tablet,delayed 81 mg PO DAILY heart health 07/04/22 01/06/24 History release escitalopram oxalate 10 mg tablet 10 mg PO DAILY depression 07/04/22 01/06/24 History losartan 25 mg tablet 25 mg PO DAILY blood pressure 07/04/22 01/06/24 History ondansetron 4 mg disintegrating 4 mg PO TID PRN nausea and 01/07/24 Unknown Rx tablet vomiting #21 tabs pantoprazole 40 mg tablet,delayed 40 mg PO DAILY reflux #30 tabs 01/08/24 Unknown Rx release (Protonix) tamsulosin 0.4 mg capsule 0.4 mg PO DAILY@1730 prostate 30 01/08/24 Unknown Rx days #30 caps ursodiol 250 mg tablet 250 mg PO BID #180 TABLETS 01/29/24 Unknown Rx [id number] 2 cap PO .COMPLEX #300 caps 02/08/24 Unknown Rx 12,000-38,000-60,000 unit capsule,delayed rel (Creon) empagliflozin 10 mg tablet 10 mg PO DAILY diabetes 02/25/24 Unknown History (Jardiance) insulin glargine 100 unit/mL (3 10 unit subcut QHS diabetes 02/25/24 Unknown History mL) subcutaneous pen (Lantus Solostar U-100 Insulin) latanoprost 0.005 % eye drops 1 drp ophthalmic (eye) QHS eye 02/25/24 Unknown History health loratadine 10 mg tablet 10 mg PO DAILY allergies 02/25/24 Unknown History magnesium oxide 400 mg (241.3 mg 400 mg PO BID 02/25/24 Unknown History magnesium) tablet ondansetron 4 mg disintegrating 4 mg PO Q8H PRN PRN Nausea #20 tabs 02/25/24 Unknown Rx tablet pravastatin 20 mg tablet 20 mg PO DAILY cholesterol 02/25/24 Unknown History levetiracetam 500 mg tablet 500 mg PO BID #60 tabs 04/18/24 Unknown Rx levocarnitine 330 mg tablet 660 mg (2 x 330 mg) PO BID #120 04/18/24 Unknown Rx tabs amlodipine 10 mg tablet 10 mg PO DAILY blood pressure #90 05/24/24 Unknown Rx tabs oxycodone 5 mg tablet 5 mg PO BIDCM PRN Pain Score 4-10 06/21/24 Unknown Rx 3 days #10 tabs ondansetron 4 mg disintegrating 4 mg PO Q8H PRN PRN Nausea #10 tabs 08/12/24 Unknown Rx tablet oxycodone-acetaminophen 5 mg-325 1 tab PO Q6H PRN PRN pain 5 days 08/12/24 Unknown Rx mg tablet #20 TABLETS Allergy/AdvReac Type Severity Reaction Status Date / Time Iodinated Contrast Media Allergy Mild Rash Verified 06/19/24 11:14 hydromorphone (From Dilaudid) Allergy Itching Verified 06/19/24 11:14 lisinopril Allergy Angioedema Verified 06/19/24 11:14 cyclobenzaprine AdvReac Severe Skin Verified 06/19/24 11:14 crawling hydrocodone bitartrate (From AdvReac Itching Verified 06/19/24 11:14 Vicodin) morphine AdvReac Itching Verified 06/19/24 11:14 tramadol AdvReac Itching Verified 06/19/24 11:14 Family History Mother Heart disease Sister Cerebral aneurysm Father Diabetes Kidney disease Anxiety and depression Surgical History History of cholecystectomy (12/2013) History of left heart catheterization (10/31/11) Social History household members: none Smoking Status: Former smoker Tobacco: How many years used: 7 Electronic Cigarette Use: not used alcohol intake: former details: 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 substance use type: does not use caffeine: No robbin/congregation: Congregation seatbelt use: always ROS ROS ED Constitutional Constitutional ED: Denies chills, fever(s), subjective, sweats or weight loss ENT ENT ED: Denies ear pain, rhinorrhea or sore throat Cardiovascular Cardiovascular: Denies chest pain, orthopnea, palpitations, paroxysmal nocturnal dyspnea or racing heartbeat Respiratory/Chest Respiratory/Chest: Denies cough, dyspnea, dyspnea on exertion, orthopnea or paroxysmal nocturnal dyspnea Gastrointestinal Gastrointestinal: Reports abdominal pain and nausea; Denies constipation, diarrhea, melena or vomiting Genitourinary Genitourinary ED: Denies dysuria, hematuria or urinary frequency Musculoskeletal Musculoskeletal: Denies arthralgias, back pain or neck pain Integumentary Denies rash Endocrine Endocrinology: Denies polydipsia Hematologic/Lymphatic Hematologic/Lymphatic: Denies easy bleeding or easy bruising EXAM Physical Exam Const Vital Signs: 08/12/24 07:20 08/12/24 09:30 Temperature 98 F 97.4 F L Temperature Source Temporal Oral Pulse Rate 102 H 71 Respiratory Rate 14 15 Blood Pressure 134/86 H 129/84 H Blood Pressure Mean 102 99 Pulse Ox 100 98 Oxygen Delivery Method Room Air Room Air Positive well nourished and well developed General Appearance ED: well developed; Negative for pallor HEENT Reports moist mucous membranes normocephalic and atraumatic Eyes PERRL and EOMs intact bilaterally General Eye ED: Negative for pale conjunctiva or scleral icterus Neck no lymphadenopathy, supple and no JVD Resp normal respiratory effort and clear to auscultation bilaterally Cardio regular rate, regular rhythm, S1 normal heart sound, S2 normal heart sound and no murmurs GI non-tender, non-distended and no masses Back/Spine no CVA tenderness Extremity full ROM General Extremety ED: Negative for edema or tenderness General Extremity: Negative for edema Neuro CN's II-XII intact bilaterally Sensorium / Orientation: alert Psych mental status grossly normal and thought process normal Skin no wounds General Skin Exam: Negative for jaundice or pallor Lesions: no lesions Rashes: no rashes MDM MDM MDM Narrative Medical decision making narrative: Patient presents with epigastric right upper quadrant pain radiating around to his back. This could represent esophagitis, peptic ulcer disease, reflux since he has a history reflux, doubt choledocholithiasis. This could be exacerbation of his chronic pancreatitis. This also could represent abdominal pain of unknown etiology. With no respiratory symptoms no abnormal oscillatory findings doubt lower lobe pneumonia. Also history is not concerning for cardiac even though he has risk factors. Patient was on Jardiance.. There was no documentation by the emergency vision to have him discontinue this. History & Record Review Additional record(s) reviewed:: Prior inpatient record, Prior ED visit and Prior labs Lab Data Attestation: I reviewed the patient's lab results. Lab results narrative: White count is slightly elevated with mild shift. There is no bandemia. H&H is unremarkable. Indices are normal. Comprehensive metabolic panel reveals a glucose of 278 with a normal CO2 anion gap. BUN and creatinine are normal. Liver enzymes are unremarkable. Lipase is 189 which is approximately 2.5 times above normal. This probably represents pancreatitis and the cause of his pain. Labs: Laboratory Results - last 24 hr 08/12/24 07:35 WBC 11.1 H RBC 4.07 L Hgb 13.0 Hct 38.1 L MCV 93.6 MCH 31.9 MCHC 34.1 RDW Std Deviation 45.1 H RDW Coeff of Armin 13.1 Plt Count 197 MPV 9.7 Immature Gran % (Auto) 0.400 Neut % (Auto) 71.5 H Lymph % (Auto) 20.2 Mason % (Auto) 6.5 Eos % (Auto) 1.0 Baso % (Auto) 0.4 Absolute Neuts (auto) 7.9 H Absolute Lymphs (auto) 2.25 Nucleated RBC % 0 Sodium 137 Potassium 4.1 Chloride 103 Carbon Dioxide 27.0 Anion Gap 7 BUN 16 Creatinine 1.12 Estim Creat Clear Calc 71.02 Est GFR (MDRD) Af Amer 86 Est GFR (MDRD) Non-Af 71 BUN/Creatinine Ratio 14.3 Glucose 278 H Calcium 9.4 Total Bilirubin 0.60 AST 10 L ALT 13 L Alkaline Phosphatase 65 Total Protein 7.7 Albumin 4.3 Globulin 3.4 Albumin/Globulin Ratio 1.3 Lipase 189 H Treatment and Re-Evaluation :: At 0837 patient was informed of results. Patient is complaining of nausea has emesis bag. There is slight amount of sputum noted in the bag. Patient has allergy to hydromorphone, hydrocodone and morphine. His reaction is itching. He also has itching to tramadol. Review of prior records indicates that patient is treated with Benadryl when he receives Dilaudid. In light of this 25 mg of Benadryl was ordered with 0.5 mg of Dilaudid to treat his pancreatitis. Patient was reassessed at 0911. Patient has no itching or hives. Patient's nausea has improved significantly. His abdominal pain is also improved. Will reassess in 30 minutes. If patient is able to keep liquids down we will discharge with prescription for Zofran and Percocet. Comments:: Patient was reassessed at 0940. He states he has occasional pain. In light of this patient was discharged prescription for Zofran, Percocet and instructed to take Benadryl with the Percocet. Discharge Plan Triage Chief Complaint: Abd Pain ED Provider: Genaro Trammell Dx/Rx/DC Orders Clinical Impression: Acute recurrent pancreatitis, Essential (primary) hypertension, Fatty liver, Nausea alone, Acute upper abdominal pain Instructions: ED Pancreatitis Prescriptions: New oxycodone-acetaminophen 5-325 mg tablet 1 tab PO Q6H PRN PRN (Reason: pain) 5 Days Qty: 20 0RF Rx Instructions: Take Benadryl half hour before taking your next dose of Percocet ondansetron 4 mg tablet,disintegrating 4 mg PO Q8H PRN PRN (Reason: Nausea) Qty: 10 0RF No Action amitriptyline 25 mg tablet 25 mg PO QHS gabapentin 300 mg capsule 300 mg PO BID levetiracetam 500 mg tablet 500 mg PO BID Qty: 60 11RF levocarnitine 330 mg tablet 660 mg PO BID Qty: 120 11RF Rx Instructions: must administer with a meal/food cholecalciferol (vitamin D3) 5,000 capsule 1 cap PO DAILY metformin 500 MG tablet 500 mg PO BID Qty: 0 0RF aspirin 81 mg Tablet,Delayed Release (Dr/Ec) 81 mg PO DAILY losartan 25 mg tablet 25 mg PO DAILY escitalopram oxalate 10 mg tablet 10 mg PO DAILY ondansetron 4 mg tablet,disintegrating 4 mg PO TID PRN (Reason: nausea and vomiting) Qty: 21 0RF tamsulosin 0.4 mg Capsule 0.4 mg PO DAILY@1730 30 Days Qty: 30 0RF pantoprazole [Protonix] 40 mg tablet,delayed release (DR/EC) 40 mg PO DAILY Qty: 30 0RF latanoprost 0.005 % drops 1 drp ophthalmic (eye) QHS magnesium oxide 400 mg (241.3 mg magnesium) tablet 400 mg PO BID pravastatin 20 mg tablet 20 mg PO DAILY loratadine 10 mg tablet 10 mg PO DAILY insulin glargine [Lantus Solostar U-100 Insulin] 100 unit/mL (3 mL) insulin pen 10 unit subcut QHS Jardiance 10 mg tablet 10 mg PO DAILY ondansetron 4 mg tablet,disintegrating 4 mg PO Q8H PRN PRN (Reason: Nausea) Qty: 20 0RF oxycodone 5 mg Tablet 5 mg PO BIDCM PRN (Reason: Pain Score 4-10) 3 Days Qty: 10 0RF hydrochlorothiazide 25 mg tablet 25 mg PO DAILY Qty: 30 11RF ursodiol 250 mg tablet 250 mg PO BID Qty: 180 2RF Creon 12,000-38,000 -60,000 unit capsule,delayed release(DR/EC) 2 cap PO .COMPLEX Qty: 300 11RF Rx Instructions: 2 caps orally ; take 1-2 with snacks and 2-3 with meals; amlodipine 10 mg tablet 10 mg PO DAILY Qty: 90 3RF Primary Care Provider: Lobito Maldonado Referrals: Lobito Maldonado MD [Primary Care Provider] - As Needed Activity Restrictions/Additional Instructions: 1. Return if you are unable to eat or drink anything 2. Return if the pain medicine does not make the pain tolerable. Print Language: Malian Disposition Disposition: Home, Self Care
[2024-08-12] MEDS: Famotidine 200 MG/20 ML MDV 20 MG in 0.9% Normal Saline (Pres. free 8 ML 300 MG IV (07:39)
[2024-08-12 07:46] LABS: Absolute Lymphocyte Count 2.25 X10^3/uL (0.83-4.51); Absolute Neutrophil Count 7.9 X10^3/uL (2.0-7.7); Basophil# 0.05 X10^3/uL; Basophil% 0.4 % (0-1); Eosinophil# 0.11 X10^3/uL; Hematocrit 38.1 % (40-54); Lymphocyte # 2.25 X10^3/ul (0.83-4.51); Lymphocyte % 20.2 % (19-41); Mean Corp Hgb Conc 34.1 g/dL (32-36); Mean Corpuscular Hgb 31.9 pg (27.0-32.0); Mean Corpuscular Volume 93.6 fL (80-94); Mean Platelet Vol. 9.7 fl (6.2-12.0); Monocyte# 0.72 X10^3/uL; Monocyte% 6.5 % (0-10); NRBC Flagged by Analyzer 0 % (0-5); Neutrophil # 7.94 X10^3/uL (2.7-7.7); Neutrophil % 71.5 % (47-70); Platelet Count 197 K/mm3 (150-450); RBC Distribution Width CV 13.1 % (11.6-14.6); RBC Distribution Width SD 45.1 fl (35.1-43.9); Red Blood Count 4.07 M/mm3 (4.6-6.2); White Blood Count 11.1 K/mm3 (4.4-11.0)
[2024-08-12 08:01] LABS: ALB/GLOB Ratio 1.3 RATIO (0.9-2.4); AST(SGOT) 10 U/L (15-37); Alanine Aminotransfer ALT/SGPT 13 U/L (16-61); Albumin, Serum 4.3 g/dL (3.2-5.0); Alkaline Phosphatase 65 U/L (45-117); Anion Gap 7 (5-15); BUN 16 mg/dL (7-18); BUN/Creat Ratio 14.3 RATIO (10-20); Calcium,Total 9.4 mg/dL (8.5-10.1); Chloride 103 mmol/L (98-107); Creatinine, Serum 1.12 mg/dL (0.70-1.30); EST Glomerular Filtration Rate 71 mL/min (>60); Est Glom Filt Rate - Afr Amer 86 mL/min (>60); Estimated Creatinine Clearance 71.02 ml/min; Globulin 3.4 g/dL (2.2-4.2); Glucose 278 mg/dL (74-106); Lipase 189 U/L (13-75); Potassium 4.1 mmol/L (3.5-5.1); Protein, Total 7.7 g/dL (6.4-8.2); Sodium Level 137 mmol/L (136-145)
[2024-08-12] MEDS: HYDROmorphone 0.5 MG/0.5 ML SYRINGE IV (08:42)
[2024-08-12] MEDS: DiphenhydrAMINE 50 MG/ML Syringe 25 MG IV (08:42)
[2024-08-12 09:30] VITALS: BP 129/84; PULSE 71; RESP 15; TEMP 36.3; O2SAT 98
[2024-08-12 09:51] VITALS: BP 124/67; PULSE 71; RESP 15; TEMP 36.4; O2SAT 99
== END 2024-08-12 09:52 | disposition home or self-care (01) ==
PROVIDERS: Emergency Provider Emergency Medicine; PCP Internal Medicine; Visit Provider Emergency Medicine
DX: K85.20 Alcohol induced acute pancreatitis without necrosis or infection (principal); F10.21 Alcohol dependence, in remission; E11.42 Type 2 diabetes mellitus with diabetic polyneuropathy; E78.5 Hyperlipidemia, unspecified; K76.0 Fatty (change of) liver, not elsewhere classified; I10 Essential (primary) hypertension; Z79.84 Long term (current) use of oral hypoglycemic drugs; Z79.82 Long term (current) use of aspirin; Z79.899 Other long term (current) drug therapy; Z87.891 Personal history of nicotine dependence; Z90.49 Acquired absence of other specified parts of digestive tract
CPT/HCPCS: 80053; 83690; 85025; 96365; 96366; 96375; 99283; A4216; J3490

== ENCOUNTER 2024-08-13 00:20 | Emergency (ER) | payer MEDICARE, MEDICAID, SELFPAY ==
[2024-08-13 00:22] VITALS: BP 151/86; PULSE 109; RESP 18; TEMP 37.2; O2SAT 98; BMI 25.8
--- NOTE | 2024-08-13 00:25 | EX.ED.DYSGE1 ---
HPI History of Present Illness Chief Complaint: Abd Pain [facility] Medical History Bulging disc Liver fibrosis Myocardial infarct Stroke/cerebrovascular accident Alcohol abuse Vision loss of right eye Vision loss of left eye Cancer Neck pain PSA elevation GI bleed TIA (transient ischemic attack) Diabetes Family history of cerebral aneurysm Polyneuropathy Gastric ulcer GERD (gastroesophageal reflux disease) Former tobacco use Constipation Glaucoma Seizure disorder Hyperlipidemia PTSD (post-traumatic stress disorder) Anxiety and depression Essential (primary) hypertension Home Medications ?Medication ?Instructions ?Recorded ?Last Taken ?Type amitriptyline 25 mg tablet 25 mg PO QHS depression 07/03/18 01/06/24 History cholecalciferol (vitamin D3) 125 1 cap PO DAILY supplement 11/09/18 01/06/24 History mcg (5,000 unit) capsule hydrochlorothiazide 25 mg tablet 25 mg PO DAILY blood 06/05/20 01/06/24 Rx pressure/heart #30 tabs gabapentin 300 mg capsule 300 mg PO BID nerve pain 10/06/20 01/06/24 History metformin 500 mg tablet 500 mg PO BID diabetes #0 tabs 03/04/22 01/06/24 Rx aspirin 81 mg tablet,delayed 81 mg PO DAILY heart health 07/04/22 01/06/24 History release escitalopram oxalate 10 mg tablet 10 mg PO DAILY depression 07/04/22 01/06/24 History losartan 25 mg tablet 25 mg PO DAILY blood pressure 07/04/22 01/06/24 History pantoprazole 40 mg tablet,delayed 40 mg PO DAILY reflux #30 tabs 01/08/24 Unknown Rx release (Protonix) tamsulosin 0.4 mg capsule 0.4 mg PO DAILY@1730 prostate 30 01/08/24 Unknown Rx days #30 caps ursodiol 250 mg tablet 250 mg PO BID #180 TABLETS 01/29/24 Unknown Rx nxcxjn-jopscxni-bnupgmz 2 cap PO .COMPLEX #300 caps 02/08/24 Unknown Rx 12,000-38,000-60,000 unit capsule,delayed rel (Creon) empagliflozin 10 mg tablet 10 mg PO DAILY diabetes 02/25/24 Unknown History (Jardiance) insulin glargine 100 unit/mL (3 10 unit subcut QHS diabetes 02/25/24 Unknown History mL) subcutaneous pen (Lantus Solostar U-100 Insulin) latanoprost 0.005 % eye drops 1 drp ophthalmic (eye) QHS eye 02/25/24 Unknown History health loratadine 10 mg tablet 10 mg PO DAILY allergies 02/25/24 Unknown History magnesium oxide 400 mg (241.3 mg 400 mg PO BID 02/25/24 Unknown History magnesium) tablet pravastatin 20 mg tablet 20 mg PO DAILY cholesterol 02/25/24 Unknown History levetiracetam 500 mg tablet 500 mg PO BID #60 tabs 04/18/24 Unknown Rx levocarnitine 330 mg tablet 660 mg (2 x 330 mg) PO BID #120 04/18/24 Unknown Rx tabs amlodipine 10 mg tablet 10 mg PO DAILY blood pressure #90 05/24/24 Unknown Rx tabs hydromorphone 2 mg tablet 2 mg PO Q6H PRN pain 3 days #12 08/13/24 Unknown Rx (Dilaudid) tabs metoclopramide HCl 5 mg tablet 5 mg PO Q8H PRN PRN nausea and 08/13/24 Unknown Rx (Reglan) vomiting #10 tabs ondansetron 4 mg disintegrating 4 mg PO Q8H PRN nausea and vomiting 08/13/24 Unknown History tablet oxycodone-acetaminophen 5 mg-325 1 tab PO Q6H PRN pain 08/13/24 Unknown History mg tablet (Percocet) Allergy/AdvReac Type Severity Reaction Status Date / Time Iodinated Contrast Media Allergy Mild Rash Verified 08/13/24 00:22 hydromorphone (From Dilaudid) Allergy Itching Verified 08/13/24 00:22 lisinopril Allergy Angioedema Verified 08/13/24 00:22 cyclobenzaprine AdvReac Severe Skin Verified 08/13/24 00:22 crawling hydrocodone bitartrate (From AdvReac Itching Verified 08/13/24 00:22 Vicodin) morphine AdvReac Itching Verified 08/13/24 00:22 tramadol AdvReac Itching Verified 08/13/24 00:22 Family History Mother Heart disease Sister Cerebral aneurysm Father Diabetes Kidney disease Anxiety and depression Surgical History History of cholecystectomy (12/2013) History of left heart catheterization (10/31/11) Social History household members: none Smoking Status: Former smoker Tobacco: How many years used: 7 Electronic Cigarette Use: not used alcohol intake: former details: 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 substance use type: does not use caffeine: No robbin/scientology: Gnosticism seatbelt use: always EXAM Physical Exam Const Vital Signs: 08/13/24 00:22 08/13/24 00:45 Temperature 98.9 F Temperature Source Oral Pulse Rate 109 H Respiratory Rate 18 Blood Pressure 151/86 H 138/93 H Blood Pressure Mean 107 108 Pulse Ox 98 Oxygen Delivery Method Room Air MDM MDM MDM Narrative Medical decision making narrative: HISTORY OF PRESENT ILLNESS: 59-year-old male with history of pancreatitis presents with abdominal pain ongoing pain despite having home narcotics. Notes he was seen earlier today. Notes ongoing nausea vomiting. Denies alcohol use. No severe abdominal pain as not relieved by oral Percocet. Notes nausea is not alleviated by oral Zofran was prescribed as well. REVIEW OF SYSTEMS: Pertinent positives: Abdominal pain, nausea vomiting Pertinent negatives: Chest pain, shortness of breath PHYSICAL EXAM: Nursing triage notes reviewed, Vital signs reviewed Constitutional: please see mdm HENT: MMM Eyes: Pupils equal round and reactive to light, Extraocular muscles intact Neck: No stridor, no JVD, full neck ROM Lungs: Clear to auscultation, No wheezing or rales. No increased work of breathing, no conversational dyspnea, no accessory muscle use, no nasal flaring. No respiratory distress noted Heart: Regular rate and rhythm, No murmurs, No rubs and No gallops, 2+ distal pulses (radial, femoral, posterior tibial) in all extremities Abdomen: Soft, there is no tenderness, rigidity, rebound or guarding, no obvious peritoneal signs, no palpable pulsatile abdominal masses, no auscultated abdominal bruit : No CVAT Extremities: No edema Neuro: No focal neurological deficits, cranial nerves II through XII intact, 5/5 strength in all extremities. Intact sensation to light touch in all extremities, 2+ reflexes bilateral patella tendons. Normal gait. No ataxia. Skin: No rash or lesions noted MEDICAL DECISION MAKING: Chief Complaint: Abdominal pain External records reviewed: Reviewed prior ED visits, allergy list, problem list, Factors affecting care: Pancreatiti Social determinants of health: History of alcohol abuse History obtained from others: none Consults: none MDM Narrative: The patient was initially hemodynamically stable, afebrile and nontoxic-appearing. Exam with diffuse TTP but no obvious peritoneal signs. I added a CT scan of the abdomen to assess any signs of surgical emergencies in the abdomen. I considered the following differential diagnosis: Pancreatitis, hepatobiliary obstruction, perforation I obtained a broad lab and imaging workup to further elucidate the etiology of the patient's complaints. The patient initially with IV Dilaudid, IV Benadryl, IV Reglan. ALL IMAGES (IF OBTAINED) HAVE BEEN PERSONALLY REVIEWED AND INTERPRETED BY MYSELF. EKG with normal sinus rhythm, left axis deviation, normal intervals, no STEMI CT scan abdomen pelvis shows evidence of acute pancreatitis CBC with leukocytosis uptrending from earlier, no anemia or thrombocytopenia noted BMP without significant electrolyte disturbances, no evidence of an anion gap to suggest endorgan hypoperfusion or DKA, no evidence of significant metabolic acidosis Lipase uptrending to 402 further consistent with acute pancreatitis The synthesis of the patient's history, physical exam, labs images suggest acute pancreatitis. Upon reassessment patient noted improvement in pain and nausea. Note he is able to tolerate p.o. he was comfortable being discharged. I discussed admission. Offered admission. The patient was alert and orient x 3 and a capacity to make his own medical symptoms and chose against admission at this time. Will discharge with oral Dilaudid and change Zofran to Reglan. Give strict return precautions. Dietary advancement instructions. Also gave follow-up instructions. The patient and/or family, caregivers express understanding. The patient and/or family, caregivers agrees with the plan. Shared decision making: I will have a discussion with the patient and or visitors regarding risk/benefits of further testing or admission. They will be made aware of of the risk/benefits inherent in this decision they will be given the opportunity to voice understanding. Total critical care time today provided was at least 0 minutes. This excludes separately billable procedures. Critical care time (if documented) is secondary to the patient having high probability of clinically significant/life threatening deterioration in the patient's condition which required my urgent intervention. Impression: 1. Acute abdominal pain 2. Nausea vomiting Dispo: Discharge home This note was generated with [employer] Responseation software. It may contain incorrect words, spelling, and punctuation that were not noted in review of the chart prior to signing. Lab Data Labs: Laboratory Results - last 24 hr 08/13/24 00:30 WBC 15.6 H RBC 4.10 L Hgb 13.0 Hct 38.2 L MCV 93.2 MCH 31.7 MCHC 34.0 RDW Std Deviation 44.4 H RDW Coeff of Armin 13.0 Plt Count 199 MPV 9.5 Immature Gran % (Auto) 0.400 Neut % (Auto) 78.1 H Lymph % (Auto) 14.3 L Hettinger % (Auto) 6.5 Eos % (Auto) 0.3 Baso % (Auto) 0.4 Absolute Neuts (auto) 12.2 H Absolute Lymphs (auto) 2.23 Nucleated RBC % 0 Sodium 134 L Potassium 3.5 Chloride 102 Carbon Dioxide 21.0 Anion Gap 12 BUN 14 Creatinine 0.97 Estim Creat Clear Calc 82.00 Est GFR (MDRD) Af Amer 101 Est GFR (MDRD) Non-Af 84 BUN/Creatinine Ratio 14.4 Glucose 217 H Calcium 9.3 Total Bilirubin 0.80 Direct Bilirubin 0.29 AST 10 L ALT 13 L Alkaline Phosphatase 65 Troponin I High Sens 4 Total Protein 8.3 H Albumin 4.6 Globulin 3.7 Lipase 402 H Radiography Diagnostic Testing: Clinical Impression(s) from Imaging Studies Abdomen/Pelvis CT 08/13/24 00:40 IMPRESSION: 1. Mild acute pancreatitis 2. Simple appearing left upper renal pole cyst. No further follow-up is necessary. 3. Mild sigmoid colonic diverticulosis without evidence of acute diverticulitis Electronically Signed: Eric Ceballos MD at 1:40 EST , Discharge Plan Triage Chief Complaint: Abd Pain ED Provider: Neftali Dickson Dx/Rx/DC Orders Clinical Impression: Pancreatitis Instructions: Pancreatitis Acute Dc Prescriptions: New hydromorphone [Dilaudid] 2 mg tablet 2 mg PO Q6H PRN (Reason: pain) 3 Days Qty: 12 0RF metoclopramide HCl [Reglan] 5 mg tablet 5 mg PO Q8H PRN PRN (Reason: nausea and vomiting) Qty: 10 0RF No Action amitriptyline 25 mg tablet 25 mg PO QHS gabapentin 300 mg capsule 300 mg PO BID levetiracetam 500 mg tablet 500 mg PO BID Qty: 60 11RF levocarnitine 330 mg tablet 660 mg PO BID Qty: 120 11RF Rx Instructions: must administer with a meal/food cholecalciferol (vitamin D3) 5,000 capsule 1 cap PO DAILY metformin 500 MG tablet 500 mg PO BID Qty: 0 0RF aspirin 81 mg Tablet,Delayed Release (Dr/Ec) 81 mg PO DAILY losartan 25 mg tablet 25 mg PO DAILY escitalopram oxalate 10 mg tablet 10 mg PO DAILY tamsulosin 0.4 mg Capsule 0.4 mg PO DAILY@1730 30 Days Qty: 30 0RF pantoprazole [Protonix] 40 mg tablet,delayed release (DR/EC) 40 mg PO DAILY Qty: 30 0RF latanoprost 0.005 % drops 1 drp ophthalmic (eye) QHS magnesium oxide 400 mg (241.3 mg magnesium) tablet 400 mg PO BID pravastatin 20 mg tablet 20 mg PO DAILY loratadine 10 mg tablet 10 mg PO DAILY insulin glargine [Lantus Solostar U-100 Insulin] 100 unit/mL (3 mL) insulin pen 10 unit subcut QHS Jardiance 10 mg tablet 10 mg PO DAILY oxycodone-acetaminophen [Percocet] 5-325 mg tablet 1 tab PO Q6H PRN (Reason: pain) ondansetron 4 mg tablet,disintegrating 4 mg PO Q8H PRN (Reason: nausea and vomiting) hydrochlorothiazide 25 mg tablet 25 mg PO DAILY Qty: 30 11RF ursodiol 250 mg tablet 250 mg PO BID Qty: 180 2RF Creon 12,000-38,000 -60,000 unit capsule,delayed release(DR/EC) 2 cap PO .COMPLEX Qty: 300 11RF Rx Instructions: 2 caps orally ; take 1-2 with snacks and 2-3 with meals; amlodipine 10 mg tablet 10 mg PO DAILY Qty: 90 3RF Primary Care Provider: Lobito Maldonado Referrals: Lobito Maldonado MD [Primary Care Provider] - Activity Restrictions/Additional Instructions: Thank you for trusting us with your care today! Your imaging studies and labs are consistent with acute pancreatitis. Please try to Fast as best as possible and if you cannot fast please only drink clear liquids. This will encourage your pancreas to heal. Please take Dilaudid and lieu of Percocet with Benadryl every 6 hours as needed for pain. Please take Reglan as needed for nausea and vomiting. Please take Tylenol (2 pills, 650 mg), ibuprofen (2 pills, 400 mg) every 6 hours as needed for pain and fever control. Please return to the emergency department if your symptoms change or worsen. Please follow with your primary care physician for further outpatient evaluation and management. Print Language: Yemeni Disposition Disposition: Home, Self Care
--- NOTE | 2024-08-13 00:38 | EKG12_ITS ---
Test Reason : PAIN Blood Pressure : */* mmHG Vent. Rate : 97 BPM Atrial Rate : 97 BPM P-R Int : 142 ms QRS Dur : 80 ms QT Int : 352 ms P-R-T Axes : 60 -17 46 degrees QTcB Int : 447 ms Normal sinus rhythm Minimal voltage criteria for LVH, may be normal variant ( R in aVL ) Nonspecific T wave abnormality Abnormal ECG Confirmed by CHIP CADE, TAPAN ([id number]), editor publications ERNA STERN ([id number]) on 08/13/2024 1:54:41 PM Referred By: Confirmed By: TAPAN SAUNDERS MD
--- NOTE | 2024-08-13 00:40 | CT_ITS ---
STUDY: CT ABDOMEN AND PELVIS WITH CONTRAST REASON FOR EXAM: Male, 59 years old. Abdominal pain RADIATION DOSAGE (If Supplied By Facility): CTDIvol = ( 6.69 ) mGy, DLP = ( 352.42 ) mGycm TECHNIQUE: Spiral CT imaging of the abdomen and pelvis was performed with intravenous contrast material ( / ), followed by coronal and sagittal reformatting. Individualized dose optimization techniques were used for this CT. COMPARISON: No relevant priors. FINDINGS: LOWER CHEST: Lung bases demonstrate bilateral dependent atelectasis versus scar formation. Normal heart. Normal pericardium. LIVER: Normal GALLBLADDER AND BILIARY TREE: Gallbladder is surgically absent. Normal biliary ductal system. SPLEEN: Normal PANCREAS: There is mild inflammatory stranding of the peripancreatic fat. No peripancreatic fluid. ADRENAL GLANDS: Normal KIDNEYS AND URETERS: There is a hypoattenuated lesion within the left upper renal pole measuring near water density Process. No visualized nephrolithiasis. BOWEL: Normal stomach. Normal small bowel. Normal appendix. Mild diverticular disease of the sigmoid colon without localized. PERITONEUM: No free intraperitoneal air or fluid. No intra-abdominal fluid collection. LYMPH NODES: No mesenteric, retroperitoneal, or pelvic lymphadenopathy. VESSELS: Mild atherosclerotic plaque of the abdominal vasculature. URINARY BLADDER: Normal REPRODUCTIVE ORGANS: Normal ABDOMINAL WALL: Normal BONES: Normal CT/Abdomen/Pelvis without Cont IMPRESSION: 1. Mild acute pancreatitis 2. Simple appearing left upper renal pole cyst. No further follow-up is necessary. 3. Mild sigmoid colonic diverticulosis without evidence of acute diverticulitis Electronically Signed: Eric Ceballos MD at 1:40 EST ,
[2024-08-13 00:45] VITALS: BP 138/93
[2024-08-13 00:46] LABS: Absolute Lymphocyte Count 2.23 X10^3/uL (0.83-4.51); Absolute Neutrophil Count 12.2 X10^3/uL (2.0-7.7); Basophil# 0.06 X10^3/uL; Basophil% 0.4 % (0-1); Eosinophil# 0.05 X10^3/uL; Eosinophils% 0.3 % (0-5); Hematocrit 38.2 % (40-54); Lymphocyte # 2.23 X10^3/ul (0.83-4.51); Lymphocyte % 14.3 % (19-41); Mean Corpuscular Hgb 31.7 pg (27.0-32.0); Mean Corpuscular Volume 93.2 fL (80-94); Mean Platelet Vol. 9.5 fl (6.2-12.0); Monocyte# 1.01 X10^3/uL; Monocyte% 6.5 % (0-10); NRBC Flagged by Analyzer 0 % (0-5); Neutrophil # 12.17 X10^3/uL (2.7-7.7); Neutrophil % 78.1 % (47-70); Platelet Count 199 K/mm3 (150-450); RBC Distribution Width SD 44.4 fl (35.1-43.9); White Blood Count 15.6 K/mm3 (4.4-11.0)
[2024-08-13] MEDS: DiphenhydrAMINE 50 MG/ML Syringe 25 MG IV (00:46)
[2024-08-13] MEDS: Metoclopramide 10 MG/2 ML Vial 5 MG IV (00:46)
[2024-08-13] MEDS: HYDROmorphone 1 MG/ML Syringe 0.5 MG IV (00:47)
[2024-08-13 01:16] LABS: AST(SGOT) 10 U/L (15-37); Alanine Aminotransfer ALT/SGPT 13 U/L (16-61); Albumin, Serum 4.6 g/dL (3.2-5.0); Alkaline Phosphatase 65 U/L (45-117); Anion Gap 12 (5-15); BUN 14 mg/dL (7-18); BUN/Creat Ratio 14.4 RATIO (10-20); Bilirubin, Direct 0.29 mg/dL (0.00-0.30); Calcium,Total 9.3 mg/dL (8.5-10.1); Chloride 102 mmol/L (98-107); Creatinine, Serum 0.97 mg/dL (0.70-1.30); EST Glomerular Filtration Rate 84 mL/min (>60); Est Glom Filt Rate - Afr Amer 101 mL/min (>60); Globulin 3.7 g/dL (2.2-4.2); Glucose 217 mg/dL (74-106); Lipase 402 U/L (13-75); Potassium 3.5 mmol/L (3.5-5.1); Protein, Total 8.3 g/dL (6.4-8.2); Sodium Level 134 mmol/L (136-145); Troponin-I HS 4 pg/mL (3.0-78.0)
[2024-08-13 02:12] VITALS: BP 143/86; PULSE 114; RESP 16; TEMP 36.8; O2SAT 97
[2024-08-13] MEDS: DiphenhydrAMINE 50 MG/ML Syringe 12.5 MG IV (02:20)
[2024-08-13 02:21] VITALS: BP 143/86; PULSE 110; RESP 16; O2SAT 98
[2024-08-13] MEDS: HYDROmorphone 0.5 MG/0.5 ML SYRINGE IV (02:21)
== END 2024-08-13 02:25 | disposition home or self-care (01) ==
PROVIDERS: Emergency Provider Emergency Medicine; PCP Internal Medicine; Visit Provider Emergency Medicine
DX: K85.90 Acute pancreatitis without necrosis or infection, unspecified (principal); E11.42 Type 2 diabetes mellitus with diabetic polyneuropathy; Z79.4 Long term (current) use of insulin; I10 Essential (primary) hypertension; E78.5 Hyperlipidemia, unspecified; Z79.82 Long term (current) use of aspirin; Z79.84 Long term (current) use of oral hypoglycemic drugs; Z79.899 Other long term (current) drug therapy; Z87.891 Personal history of nicotine dependence
CPT/HCPCS: 74176; 80048; 80076; 83690; 84484; 85025; 93005; 96374; 96375; 96376; 99284; A4216

== ENCOUNTER → 2025-02-13 | Outpatient (CLI) | payer MEDICARE, MEDICAID, SELFPAY ==
[2025-02-13 18:21] LABS: Ammonia 23.9 umol/L (16-60)
[2025-02-17 13:07] LABS: KEPPRA (LEVETIRACETAM) 15.2 ug/mL (10.0-40.0)
== END | disposition home or self-care (01) ==
LOC: MTLAB 14:01
PROVIDERS: PCP Internal Medicine; Referring Provider Psychiatry & Neurology Neurology; Visit Provider Psychiatry & Neurology Neurology
DX: G40.409 Other generalized epilepsy and epileptic syndromes, not intractable, without status epilepticus (principal)
CPT/HCPCS: 36415; 80177; 82140

== ENCOUNTER 2025-03-16 18:27 | Emergency (ER) | payer MEDICARE, MEDICAID, SELFPAY ==
[2025-03-16 18:28] VITALS: BP 156/101; PULSE 94; RESP 18; TEMP 36.8; O2SAT 98; BMI 26.0
--- NOTE | 2025-03-16 18:58 | ED.VIS.GI ---
HPI HPI - GI History of Present Illness Chief Complaint: Abd Pain Detail of Chief Complaint: Upper abdominal pain with nausea vomiting Abdominal Pain/Flank Pain Onset: Days (3 days ago , March 13) Context: Sudden Onset Timing: Continuous Quality: Aching and Cramping Location: Epigastric and LUQ Current Severity: Mild Maximum Severity: Severe Worsened by: Food Relieved by: Nothing Nausea/Vomiting/Emesis GI Symptom: Positive for Nausea and Vomiting (X 2 since onset of pain) Quality: Negative for Nonbilious, Blood streaks, Coffee ground or Hematemesis Severity: Mild Episodes: 2 Diarrhea/Melena/Hematochezia GI Symptom: Positive for Hematochezia; Negative for Diarrhea or Melena Onset: Today and Yesterday Severity: Mild Associated Symptoms Associated Symptoms: Negative for Dysuria, Frequency, Hematuria or Urgency Narrative Narrative: Patient is a 59-year-old male. He has a history of due to alcohol use. He has not used alcohol in some time. His last ER visit for pancreatitis was July 2024. His lipase at that time was greater than 400. He presents because of persistent pain located epigastric right upper quadrant. Had 2 episodes of nausea vomiting. He was initially constipated took medicine and had bowel movement had a bowel movement today. He denied black or maroon stool. Per triage note he had bright red blood. He endorses bright red blood on tissue and in the commode. He states he does not have any hemorrhoids at this time that he is aware of. He is on no antithrombotic or anticoagulant. He does have a history of GERD. He denies bruising easily. No hematuria. Nu[place] bleeding of his gums. Prior similar symptoms: Yes Recent Illness/Hospitalization: No PFSH PFS Medical History Bulging disc Liver fibrosis Myocardial infarct Stroke/cerebrovascular accident Alcohol abuse Vision loss of right eye Vision loss of left eye Cancer Neck pain PSA elevation GI bleed TIA (transient ischemic attack) Diabetes Family history of cerebral aneurysm Polyneuropathy Gastric ulcer GERD (gastroesophageal reflux disease) Former tobacco use Constipation Glaucoma Seizure disorder Hyperlipidemia PTSD (post-traumatic stress disorder) Anxiety and depression Essential (primary) hypertension Home Medications ?Medication ?Instructions ?Recorded ?Last Taken ?Type amitriptyline 25 mg tablet 25 mg PO QHS depression 07/03/18 01/06/24 History cholecalciferol (vitamin D3) 125 1 cap PO DAILY supplement 11/09/18 01/06/24 History mcg (5,000 unit) capsule hydrochlorothiazide 25 mg tablet 25 mg PO DAILY blood 06/05/20 01/06/24 Rx pressure/heart #30 tabs gabapentin 300 mg capsule 300 mg PO BID nerve pain 10/06/20 01/06/24 History metformin 500 mg tablet 500 mg PO BID diabetes #0 tabs 03/04/22 01/06/24 Rx aspirin 81 mg tablet,delayed 81 mg PO DAILY heart health 07/04/22 01/06/24 History release escitalopram oxalate 10 mg tablet 10 mg PO DAILY depression 07/04/22 01/06/24 History losartan 25 mg tablet 25 mg PO DAILY blood pressure 07/04/22 01/06/24 History pantoprazole 40 mg tablet,delayed 40 mg PO DAILY reflux #30 tabs 01/08/24 Unknown Rx release (Protonix) tamsulosin 0.4 mg capsule 0.4 mg PO DAILY@1730 prostate 30 01/08/24 Unknown Rx days #30 caps insulin glargine 100 unit/mL (3 10 unit subcut Q diabetes 02/25/24 Unknown History mL) subcutaneous pen (Lantus Solostar U-100 Insulin) latanoprost 0.005 % eye drops 1 drp ophthalmic (eye) [facility] [place] 02/25/24 Unknown History health loratadine 10 mg tablet 10 mg PO DAILY allergies 02/25/24 Unknown History magnesium oxide 400 mg (241.3 mg 400 mg PO BID 02/25/24 Unknown History magnesium) tablet pravastatin 20 mg tablet 20 mg PO DAILY cholesterol 02/25/24 Unknown History levocarnitine 330 mg tablet 660 mg (2 x 330 mg) PO BID #120 04/18/24 Unknown Rx tabs amlodipine 10 mg tablet 10 mg PO DAILY blood pressure #90 05/24/24 Unknown Rx tabs hydromorphone 2 mg tablet 2 mg PO Q6H PRN pain 3 days #12 08/13/24 Unknown Rx (Dilaudid) tabs metoclopramide HCl 5 mg tablet 5 mg PO Q8H PRN PRN nausea and 08/13/24 Unknown Rx (Reglan) vomiting #10 tabs ondansetron 4 mg disintegrating 4 mg PO Q8H PRN nausea and vomiting 08/13/24 Unknown History tablet oxycodone-acetaminophen 5 mg-325 1 tab PO Q6H PRN pain 08/13/24 Unknown History mg tablet (Percocet) ursodiol 250 mg tablet 250 mg PO BID #180 TABLETS 10/10/24 Unknown Rx [id number] 2 cap PO .COMPLEX #300 caps 01/06/25 Unknown Rx 12,000-38,000-60,000 unit capsule,delayed rel (Creon) levetiracetam 500 mg tablet 500 mg PO BID #60 tabs 02/13/25 Unknown Rx ondansetron 4 mg disintegrating 4 mg PO Q8H PRN PRN Nausea #10 tabs 03/16/25 Unknown Rx tablet oxycodone-acetaminophen 5 mg-325 1 tab PO Q6H PRN PRN pain 5 days 03/16/25 Unknown Rx mg tablet #20 TABLETS Allergy/AdvReac Type Severity Reaction Status Date / Time Iodinated Contrast Media Allergy Mild Rash Verified 03/16/25 18:30 hydromorphone (From Dilaudid) Allergy Itching Verified 03/16/25 18:30 lisinopril Allergy Angioedema Verified 03/16/25 18:30 cyclobenzaprine AdvReac Severe Skin Verified 03/16/25 18:30 crawling hydrocodone bitartrate (From AdvReac Itching Verified 03/16/25 18:30 Vicodin) morphine AdvReac Itching Verified 03/16/25 18:30 tramadol AdvReac Itching Verified 03/16/25 18:30 Family History Mother Heart disease Sister Cerebral aneurysm Father Diabetes Kidney disease Anxiety and depression Surgical History History of cholecystectomy (12/2013) History of left heart catheterization (10/31/11) Social History household members: none housing: house Smoking Status: Former smoker Tobacco: How many years used: 7 Electronic Cigarette Use: not used alcohol intake: former details: 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 substance use type: does not use caffeine: No robbin/jehovah's witness: Zoroastrian seatbelt use: always ROS ROS ED Constitutional Constitutional ED: Denies chills, fever(s) or subjective ENT ENT ED: Denies ear pain, rhinorrhea or sore throat Cardiovascular Cardiovascular: Denies chest pain or palpitations Respiratory/Chest Respiratory/Chest: Denies cough, dyspnea or dyspnea on exertion Gastrointestinal Gastrointestinal: Reports abdominal pain, constipation, nausea and vomiting; Denies diarrhea or melena Genitourinary Genitourinary ED: Denies dysuria, hematuria or urinary frequency Musculoskeletal Musculoskeletal: Denies arthralgias or myalgias Integumentary Denies rash Neurologic Neurologic: Denies headache(s) or weakness Hematologic/Lymphatic Hematologic/Lymphatic: Denies easy bleeding or easy bruising EXAM Physical Exam Const Vital Signs: 03/16/25 18:28 Temperature 98.3 F Temperature Source Oral Pulse Rate 94 Respiratory Rate 18 Blood Pressure 156/101 H Blood Pressure Mean 119 Pulse Ox 98 Oxygen Delivery Method Room Air Positive well nourished and well developed Constitutional Narrative: Patient appears uncomfortable. He is bent over and in the room. He grimaced when he straightened up. General Appearance ED: well developed; Negative for pallor HEENT Reports TM's clear and dry mucous membranes normocephalic and atraumatic Tympanic Membrane ED: Yes TM's clear Mouth ED: Yes dry mucous membranes Mouth: dry mucous membranes Eyes PERRL and EOMs intact bilaterally General Eye ED: Negative for pale conjunctiva or scleral icterus Neck no lymphadenopathy, supple and no JVD Resp normal respiratory effort and clear to auscultation bilaterally Cardio regular rate, regular rhythm, S1 normal heart sound, S2 normal heart sound and no murmurs GI no masses; Negative for non-tender or non-distended Inspection: abdominal distention Auscultation: hypoactive bowel sounds Palpation: soft, tender epigastric and LUQ and guarding LUQ; Negative for rigid, hepatomegaly, splenomegaly, hernia, mass or pulsatile mass Back/Spine no CVA tenderness Extremity full ROM General Extremety ED: Negative for edema or tenderness General Extremity: Negative for edema Neuro CN's II-XII intact bilaterally and moves all extremities Sensorium / Orientation: alert Psych mental status grossly normal and thought process normal Skin no wounds General Skin Exam: Negative for jaundice or pallor Lesions: no lesions Rashes: no rashes MDM MDM MDM Narrative Medical decision making narrative: With bright red blood per rectum anoscope was performed. Please see procedure note. Differential diagnosis for his abdominal pain is of no pain unknown etiology, peptic ulcer disease, pancreatitis doubt biliary. May be due to fatty liver disease. Patient was treated with Zofran for his nausea and vomiting. Workup included a lipase, hepatic profile, CBC. Since his renal function is normal he was treated with ketorolac for his pain since he does not have a ride home. History & Record Review Additional record(s) reviewed:: Prior ED visit (July 2024. Reviewed Dr. Dickson' note) and Prior labs Lab Data Attestation: I reviewed the patient's lab results. Lab results narrative: White count is slightly elevated. There is no shift. H&H is unremarkable. Comprehensive metabolic panel is remarkable glucose of 230 with a CO2 of 22 and anion gap of 16. Liver enzymes normal. Lipase is 1.8 times normal. Labs: Laboratory Results - last 24 hr 03/16/25 18:40 WBC 11.5 H RBC 4.27 L Hgb 13.9 Hct 38.9 L MCV 91.1 MCH 32.6 H MCHC 35.7 RDW Std Deviation 39.5 RDW Coeff of Armin 11.9 Plt Count 176 MPV 9.9 Immature Gran % (Auto) 0.300 Neut % (Auto) 63.6 Lymph % (Auto) 28.1 Ransom % (Auto) 6.6 Eos % (Auto) 1.1 Baso % (Auto) 0.3 Absolute Neuts (auto) 7.3 Absolute Lymphs (auto) 3.23 Nucleated RBC % 0 Sodium 137 Potassium 3.5 Chloride 98 Carbon Dioxide 22.3 Anion Gap 16 H BUN 18 Creatinine 1.04 Estim Creat Clear Calc 76.48 Est GFR (MDRD) Non-Af 83 BUN/Creatinine Ratio 16.9 Glucose 230 H Calcium 10.0 Total Bilirubin 0.82 AST 14 ALT 12 Alkaline Phosphatase 77 Total Protein 8.1 Albumin 4.8 Globulin 3.3 Albumin/Globulin Ratio 1.5 Lipase 130 H Treatment and Re-Evaluation :: I was informed that patient reports nausea is better pain is better however he got some pain after drinking water. He did pass p.o. challenge. Will treat with Pepcid. Suspect this is probably due to mild pancreatitis. Comments:: Patient's prescription was filled at [facility] in deliver to his bed. He was discharged to home with the medication since he does not have a ride home he was not given a bandages in the department Discharge Plan Triage Chief Complaint: Abd Pain ED Provider: Genaro Trammlel Dx/Rx/DC Orders Clinical Impression: Acute pancreatitis, Essential (primary) hypertension, Polyneuropathy, GERD (gastroesophageal reflux disease), Nausea & vomiting, Fatty liver, Dehydration, mild, High anion gap Instructions: ED Pancreatitis Prescriptions: New oxycodone-acetaminophen 5-325 mg tablet 1 tab PO Q6H PRN PRN (Reason: pain) 5 Days Qty: 20 0RF ondansetron 4 mg tablet,disintegrating 4 mg PO Q8H PRN PRN (Reason: Nausea) Qty: 10 0RF No Action amitriptyline 25 mg tablet 25 mg PO QHS gabapentin 300 mg capsule 300 mg PO BID levocarnitine 330 mg tablet 660 mg PO BID Qty: 120 11RF Rx Instructions: must administer with a meal/food levetiracetam 500 mg tablet 500 mg PO BID Qty: 60 11RF cholecalciferol (vitamin D3) 5,000 capsule 1 cap PO DAILY metformin 500 MG tablet 500 mg PO BID Qty: 0 0RF aspirin 81 mg Tablet,Delayed Release (Dr/Ec) 81 mg PO DAILY losartan 25 mg tablet 25 mg PO DAILY escitalopram oxalate 10 mg tablet 10 mg PO DAILY tamsulosin 0.4 mg Capsule 0.4 mg PO DAILY@1730 30 Days Qty: 30 0RF pantoprazole [Protonix] 40 mg tablet,delayed release (DR/EC) 40 mg PO DAILY Qty: 30 0RF latanoprost 0.005 % drops 1 drp ophthalmic (eye) QHS magnesium oxide 400 mg (241.3 mg magnesium) tablet 400 mg PO BID pravastatin 20 mg tablet 20 mg PO DAILY loratadine 10 mg tablet 10 mg PO DAILY insulin glargine [Lantus Solostar U-100 Insulin] 100 unit/mL (3 mL) insulin pen 10 unit subcut QHS oxycodone-acetaminophen [Percocet] 5-325 mg tablet 1 tab PO Q6H PRN (Reason: pain) ondansetron 4 mg tablet,disintegrating 4 mg PO Q8H PRN (Reason: nausea and vomiting) hydromorphone [Dilaudid] 2 mg tablet 2 mg PO Q6H PRN (Reason: pain) 3 Days Qty: 12 0RF metoclopramide HCl [Reglan] 5 mg tablet 5 mg PO Q8H PRN PRN (Reason: nausea and vomiting) Qty: 10 0RF hydrochlorothiazide 25 mg tablet 25 mg PO DAILY Qty: 30 11RF amlodipine 10 mg tablet 10 mg PO DAILY Qty: 90 3RF ursodiol 250 mg tablet 250 mg PO BID Qty: 180 2RF Creon 12,000-38,000 -60,000 unit capsule,delayed release(DR/EC) 2 cap PO .COMPLEX Qty: 300 11RF Rx Instructions: 2 caps orally ; take 1-2 with snacks and 2-3 with meals; Primary Care Provider: Lobito Maldonado Referrals: Lobito Maldonado MD [Primary Care Provider] - Print Language: Malawian Disposition Disposition: Home, Self Care
[2025-03-16] MEDS: Ondansetron 4 MG/2 ML Vial IV (19:00)
[2025-03-16] MEDS: Ketorolac 15 MG/ML Vial IV (19:00)
[2025-03-16 19:02] LABS: Absolute Lymphocyte Count 3.23 X10^3/uL (0.83-4.51); Absolute Neutrophil Count 7.3 X10^3/uL (2.0-7.7); Basophil# 0.04 X10^3/uL; Basophil% 0.3 % (0-1); Eosinophil# 0.13 X10^3/uL; Eosinophils% 1.1 % (0-5); Hematocrit 38.9 % (40-54); Hemoglobin 13.9 g/dL (13.0-16.5); Lymphocyte # 3.23 X10^3/ul (0.83-4.51); Lymphocyte % 28.1 % (19-41); Mean Corp Hgb Conc 35.7 g/dL (32-36); Mean Corpuscular Hgb 32.6 pg (27.0-32.0); Mean Corpuscular Volume 91.1 fL (80-94); Mean Platelet Vol. 9.9 fl (6.2-12.0); Monocyte# 0.76 X10^3/uL; Monocyte% 6.6 % (0-10); NRBC Flagged by Analyzer 0 % (0-5); Neutrophil % 63.6 % (47-70); Platelet Count 176 K/mm3 (150-450); RBC Distribution Width CV 11.9 % (11.6-14.6); RBC Distribution Width SD 39.5 fl (35.1-43.9); Red Blood Count 4.27 M/mm3 (4.6-6.2); White Blood Count 11.5 K/mm3 (4.4-11.0)
--- OUTSIDE RECORDS SUMMARY | 2025-03-16 19:14 | XMS RPT_ITS | CCD ---
Author Organization [facility] Care Team Providers Care Block Layer Name Role Phone Elvin Linares Unavailable Unavailable PROVIDER, UNKNOWN Unavailable Unavailable Natasha Zamudio Unavailable Unavailable Elvin Linares Unavailable Unavailable Evlin Linares Unavailable Unavailable Tara Wadsworth Unavailable Heather Kelley CNP Unavailable Robin PLANT ELECTRICAL ENGINEER.MATERIALS PLANNER/PRODUCTION PLANNER, DNP, Souleymane Primary Care Provider EUGENIO BENITEZ Attending Unavailabl e SOULEYMANE ELLIOTT Primary Care Unavailable Robin FIRE MANAGER, FIRE MANAGER-C Souleymane Primary Care Provider Dr. Toya Cedillo Emergency Provider [phone] Dr. Dillon Harrell Admit Provider Dr. Dillon Harrell Attending Provider Dr. Dillon Harrell Other Provider Robin FIRE MANAGER, FIRE MANAGER-C Souleymane Referring Provider Jesusita LEOS, PA Anabel Elizalde Attending Provider Dr. Yahir Arteaga Emergency Provider Dr. Mg Patel Admit Provider Unavailable Dr. Mg Patel Attending Provider Unavailable Dr. Mg Patel Other Provider Unavailable Dr. Ana Yuan Attending Provider Dr. Ana Yuan Other Provider Rosalio, Dr. Grajeda Attending Provider Dr. John Paul Araujo Other Provider [phone] Dr. John Paul Araujo Attending Provider Lobito Maldonado MD Primary Care Provider Dr. John Paul Araujo Referring Provider Franny FIRE MANAGER, FIRE MANAGER-C Savannah Elizalde Attending Provider Robin FIRE MANAGER, FIRE MANAGER-C Souleymane Primary Care Provider Warren MATERIALS PLANNER/PRODUCTION PLANNER, [place] S Unavailable Lobito Maldonado MD Primary Care Provider Warren MATERIALS PLANNER/PRODUCTION PLANNER, Heather S Unavailable Dr. Lobito Maldonado Primary Care Provider Dr. Lobito Maldonado Referring Provider Dr. Phillip Aguiar Emergency Provider AgDr. Lazaro carrilloit Provider Dr. Lazaro Chin Attending Provider Dr. Lazaro Chin Other Provider Dr. Roxana Cox Attending Provider Dr. Roxana Cox Other Provider Dr. Mia Carr Attending Provider Dr. Mia Carr Other Provider Franny FIRE MANAGER, FIRE MANAGER-C Savannah Elizalde Attending Provider Dr. Lobito Maldonado Primary Care Provider Dr. Lobito Maldonado Referring Provider Dr. Phillip Aguiar Emergency Provider Dr. Lazaro Chinit Provider Dr. Lazaro Chin Attending Provider Dr. Lazaro Chin Other Provider Dr. Roxana Cox Attending Provider Dr. Roxana Cox Other Provider Dr. Mia Carr Attending Provider Dr Lilly. [place] Other Provider Dr. Antony Burnett Attending Provider Warren MATERIALS PLANNER/PRODUCTION PLANNER, Heather S Unavailable Lobito Maldonado MD Primary Care Provider MD Alejandro Gandhi Emergency Provider Van, Dr. Coker Admit Provider Van, Dr. Coker Attending Provider Van, Dr. Coker Other Provider Blaz PLANT ELECTRICAL ENGINEER.EVA, DNP, Souleymane Primary Care Provider Dr. Yahir Arteaga Emergency Provider Lilly, Dr. Bellamy Admit Provider Dr. Lobito Maldonado Primary Care Provider Dr. Lobito Maldonado Referring Provider Dr. Dillon Harrell Attending Provider Dr. Dillon Harrell Other Provider Dr. Lobito Maldonado Primary Care Provider Lilly, Dr. Bellamy Attending Provider Lilly, Dr. Bellamy Other Provider Dr. Magno Mora Emergency Provider Dr. Mayelin Pedraza Admit Provider Dr. Mayelin Pedraza Other Provider Dr. Veena Tidwell Other Provider Dr. Taras Santamaria Attending Provider Dr. Veena Tidwell Attending Provider Dr. Lobito Maldonado Primary Care Provider MD Alejandro Gandhi Emergency Provider Van, Dr. Coker Admit Provider Dr. John Paul Araujo Attending Provider Van, Dr. Coker Other Provider Dr. Yahir Arteaga Emergency Provider [facility], Dr. Bellamy Admit Provider [facility], Dr. Bellamy Attending Provider [facility], Dr. Bellamy Other Provider Dr. Dillon Harrell Attending Provider Dr. Dillon Harrell Other Provider Dr. Magno Mora Emergency Provider Dr. Mayelin Pedraza Admit Provider Dr. Mayelin Pedraza Other Provider Dr. Veena Tidwell Other Provider Rosalio, Dr. Grajeda Attending Provider Yaw, Dr. Veena Ponce Attending Provider Dr. Lobito Maldonado Primary Care Provider MD Alejandro Gandhi Emergency Provider Van, Dr. Coker Admit Provider Van, Dr. Coker Attending Provider Van, Dr. Coker Other Provider Dr. Yahir Arteaga Emergency Provider [facility], Dr. Bellamy Admit Provider [facility], Dr. Bellamy Attending Provider [facility], Dr. Bellamy Other Provider Dr. Dillon Harrell Attending Provider Dr. Dillon Harrell Other Provider Dr. Magno Mora Emergency Provider Dr. Mayelin Pedraza Admit Provider Dr. Mayelin Pedraza Other Provider Koram, Dr. Veena Ponce Other Provider Friend, Dr. Grajeda Attending Provider Koram, Dr. Veena Ponce Attending Provider Joel, Dr. Robin Referring Provider Savanna, Dr. Nunes Attending Provider Joel, Dr. Robin Primary Care Provider Koram, Dr. Veena Ponce Referring Provider Maldonado, Dr. Robin Referring Provider Savanna, Dr. Nunes Attending Provider Maldonado, Dr. Robin Primary Care Provider Koram, Dr. Veena Ponce Referring Provider Dr. Antony Burnett Attending Provider Maldonado, Dr. Robin Primary Care Provider Dr. Antony Burnett Attending Provider Maldonado, Dr. Robin Primary Care Provider Maldonado, Dr. Robin Referring Provider Dr. Taras Santamaria Attending Provider Maldonado, Dr. Robin Primary Care Provider Joel, Dr. Robin Referring Provider Dr. Taras Santamaria Attending Provider Dr. Lynnette Julian Emergency Provider Dr. Mayelin Pedraza Attending Provider Maldonado, Dr. Robin Primary Care Provider Maldonado, Dr. Robin Referring Provider Dr. Taras Santamaria Attending Provider Dr. Antony Burnett Attending Provider Maldonado, Dr. Lobito Primary Care Provider Dr. Lobito Maldonado Referring Provider Friend, Dr. Grajeda Attending Provider Dr. Antony Burnett Attending Provider Cosme, Dr. Fisher Emergency Provider Jamie, Dr. Driscoll Admit Provider Dr. Daiana Banda Attending Provider Dr. Daiana Banda Other Provider Dr. Mg Patel Attending Provider Unavailable Jorge, Dr. Holliday Other Provider Unavailable Joel CADE, Lobito Self Primary Care Provider DAIANA BANDA DO Attending Unavailab le Toma PLANT ELECTRICAL ENGINEER.EVA, Alis M Unavailable KAT GALINDO Attending Unavailable MALDONADO, LOBITO Self Primary Care Unavailable MALDONADO, LOBITO Self Referring Unavailable MALDONADO, LOBITO Self Primary Care Unavailable MALDONADO, LOBITO Self Referring Unavailable MALDONADO, OPAL Primary Care Unavailable MALDONADO, LOBITO Self Attending Unavailable MALDONADO, OPAL Primary Care Unavailable KAT GALINDO Attending Unavailable MALDONADO, OPAL Primary Care Unavailable TOMAALIS Attending Unavailable SELF Referring Unavailable MALDONADO, OPAL Primary Care Unavailable MALDONADO, OPAL Referring Unavailable MALDONADO, OPAL Primary Care Unavailable TOMAALIS KING Referring Unavailable MALDONADO, OPAL Primary Care Unavailable MALDONADO, OPAL Primary Care Unavailable MALDONADO, OPAL Primary Care Unavailable SELF Referring Unavailable Comment on above: Performed By: #### L 500.2499, L501.0 ####[facility] [address] [place], [place], [address] CA,Total 8.8 mg/dL Normal 8.5-10.1 [facility] Comment on above: Performed By: #### L 500.2500, L5.2300 ####[facility] [address] [place], [address] Chloride [Moles/Vol] 106 mmol/L Normal 98-107 [facility] Comment on above: Performed By: #### L 500.2500, L501.2300 ####[facility] [address] [place], [address] CO2 [Moles/Vol] 24.0 mmol/L Normal 21.0-32.0 [facility] Comment on above: Performed By: #### L 500.2500, L501.2300 ####[facility] [address] [place], [address] Creatinine [Mass/Vol] 0.85 mg/dL Normal 0.70-1.30 [facility] Comment on above: Result Comment: The validity of the calculated GFR GFRAA in patients over 70 years has not been determined. Clinical correlation is essential. Performed By: #### L 500.2500, L501.2300 ####[facility] [address] [place], [address] ECRCL 96.62 ml/min Normal [facility] Comment on above: Performed By: #### L 500.2500, L501.2300 ####[facility] [address] [place], [address] EST GFR - AA 118 mL/min Normal >60 [facility] Comment on above: Result Comment: Afri can Russian GFR Calc Performed By: #### L 500.2500, L501.2300 ####[facility] [address] [place], [address] GAP 9 Normal 5-15 [facility] Comment on above: Performed By: #### L 500.2500, L501.2300 ####[facility] [address] [place], [address] GFR/1.73 sq M.predicted among non-blacks MDRD (S/P/Bld) [Vol rate/Area] 98 mL/min/{1.73_m2} Normal >60 [facility] Comment on above: Result Comment: Non- GFR Calc Performed By: #### L 500.2500, L501.2300 ####[facility] [address] [place], [address] Glucose [Mass/Vol] 133 mg/dL High 74-106 [facility] Comment on above: Result Comment: Fast ing Glucose result greater than or equal to 126 mg/dL suggests DIABETES MELLITUS per A.D.A. criteria. Performed By: #### L 500.2500, L501.2300 ####[facility] [address] [place], [address] Potassium [Moles/Vol] 3.3 mmol/L Low 3.5-5.1 [facility] Comment on above: Performed By: #### L 500.2500, L501.2300 ####[facility] [address] [place], [address] Sodium [Moles/Vol] 139 mmol/L Normal 136-145 [facility] Comment on above: Performed By: #### L 500.2500, L501.2300 ####[facility] [address] [place], [address] Urea nitrogen [Mass/Vol] 7 mg/dL Normal 7-18 [facility] Comment on above: Performed By: #### L 500.2500, L501.2300 ####[facility] [address] [place], [address] Bedside Glucoseon 06-21-2024 FINGERSTICK GLU 181 mg/dL High 74-106 [facility] Comment on above: Result Comment: VÍCTOR CAMPA OF PATIENT CARE PER NURSING PROTOCOL Performed By: #### L 501.080 #### [facility] [address] [place], [address] FINGERSTICK GLU 148 mg/dL High 74-106 [facility] Comment on above: Result Comment: VÍCTOR CAMPA OF PATIENT CARE PER NURSING PROTOCOL Performed By: #### L 501.080 ####[facility] [address] [place], [address] Discharge Instructionon 05-27 Discharge Instruction [facility] Medical Records Department [address] [place] [address] Instructions for Home/Discharge Instructions 06/21/24 1110 MR#: [id number] Acct: [id number] Name: BRONSON WELLER Rep #: [id number] : 1965 59 From: Dillon Harrell MD PCP: Dr. Lobito Maldonado MD Status:ADM IN Discharge Instructions Diet Discharge Diet: Low fat / Low cholesterol and Carb Control Diet Activity Discharge Activity: Return to Normal Activity Dressing / Incision Call your doctor if you observe: Fever of 101 or Higher, Shortness of breath, Dizziness, Fainting spells, Swelling in the ankles, Chest pain and Increased palpitations (irregular heartbeat) Follow Up Care Test Results: Test results from this visit will be discussed in further detail at your follow-up appointment, if applicable. Discharge Plan Admission Admit Date/Time: 06/19/24 14:23 Attending Provider: Dillon Harrell Primary Care Provider: Lobito Maldonado Consulting Providers: Roxana Cox Discharge Orders/Prescriptions Prescriptions: New oxycodone 5 mg Tablet 5 mg PO BIDCM PRN (Reason: Pain Score 4-10) 3 Days Qty: 10 0RF Continued amitriptyline 25 mg tablet 25 mg PO QHS gabapentin 300 mg capsule 300 mg PO BID levetiracetam 500 mg tablet 500 mg PO BID Qty: 60 11RF levocarnitine 330 mg tablet 660 mg PO BID Qty: 120 11RF Rx Instructions: must administer with a meal/food cholecalciferol (vitamin D3) 5,000 capsule 1 cap PO DAILY metformin 500 MG tablet 500 mg PO BID Qty: 0 0RF aspirin 81 mg Tablet,Delayed Release (Dr/Ec) 81 mg PO DAILY losartan 25 mg tablet 25 mg PO DAILY escitalopram oxalate 10 mg tablet 10 mg PO DAILY ondansetron 4 mg tablet,disintegrating 4 mg PO TID PRN (Reason: nausea and vomiting) Qty: 21 0RF tamsulosin 0.4 mg Capsule 0.4 mg PO DAILY@1730 30 Days Qty: 30 0RF pantoprazole [Protonix] 40 mg tablet,delayed release (DR/EC) 40 mg PO DAILY Qty: 30 0RF latanoprost 0.005 % drops 1 drp ophthalmic (eye) QHS magnesium oxide 400 mg (241.3 mg magnesium) tablet 400 mg PO BID pravastatin 20 mg tablet 20 mg PO DAILY loratadine 10 mg tablet 10 mg PO DAILY insulin glargine [Lantus Solostar U-100 Insulin] 100 unit/mL (3 mL) insulin pen 10 unit subcut QHS Jardiance 10 mg tablet 10 mg PO DAILY ondansetron 4 mg tablet,disintegrating 4 mg PO Q8H PRN PRN (Reason: Nausea) Qty: 20 0RF hydrochlorothiazide 25 mg tablet 25 mg PO DAILY Qty: 30 11RF ursodiol 250 mg tablet 250 mg PO BID Qty: 180 2RF Creon 12,000-38,000 -60,000 unit capsule,delayed release(DR/EC) 2 cap PO .COMPLEX Qty: 300 11RF Rx Instructions: 2 caps orally ; take 1-2 with snacks and 2-3 with meals; amlodipine 10 mg tablet 10 mg PO DAILY Qty: 90 3RF Referrals / Follow Up: Lobito Maldonado MD [Primary Care Provider] - Within 1 Week Disposition Disposition (needs filled in before D/C Order can be placed): Home, Self Care 06/21/24 1115 Dillon Harrell MD CC: Dr. Roxana Cox MD; Dr. Lobito Maldonado MD Signed Normal [facility] Phosphoruson 06-21-2024 Phosphate [Mass/Vol] 2.7 mg/dL Normal 2.5-4.9 [facility] Comment on above: Performed By: #### L 500.2500, L501.2300 ####[facility] [address] [place], [address] Basic Metabolic Profile (BMP )on 06-20-2024 BUN Normal 7-18 [facility] Comment on above: Order Comment: Call MD with results STAT Result Comment: Canc elled via OM: MD Ordered Performed By: #### L 500.2500 #### [facility] [address] [place], [address] BUN/CRE Normal 10-20 [facility] Comment on above: Order Comment: Call MD with results STAT Result Comment: Canc elled via OM: MD Ordered Performed By: #### L 500.2500 #### [facility] [address] [place], [address] CA,Total Normal 8.5-10.1 [facility] Comment on above: Order Comment: Call MD with results STAT Result Comment: Canc elled via OM: MD Ordered Performed By: #### L 500.2500 #### [facility] [address] [place], [address] CL Normal 98-107 [facility] Comment on above: Order Comment: Call MD with results STAT Result Comment: Canc elled via OM: MD Ordered Performed By: #### L 500.2500 #### [facility] [address] [place], [address] CO2 Normal 21.0-32.0 [facility] Comment on above: Order Comment: Call MD with results STAT Result Comment: Canc elled via OM: MD Ordered Performed By: #### L 500.2500 #### [facility] [address] [place], [address] CREAT,SERUM Normal 0.70-1.30 [facility] Comment on above: Order Comment: Call MD with results STAT Result Comment: Canc elled via OM: MD Ordered Performed By: #### L 500.2500 #### [facility] [address] [place], [address] EST GFR Normal >60 [facility] Comment on above: Order Comment: Call MD with results STAT Result Comment: Canc elled via OM: MD Ordered Performed By: #### L 500.2500 #### [facility] [address] [place], [address] EST GFR - AA Normal >60 [facility] Comment on above: Order Comment: Call MD with results STAT Result Comment: Canc elled via OM: MD Ordered Performed By: #### L 500.2500 #### [facility] [address] [place], [address] GAP Normal 5-15 [facility] Comment on above: Order Comment: Call MD with results STAT Result Comment: Canc elled via OM: MD Ordered Performed By: #### L 500.2500 #### [facility] [address] [place], [address] GLU Normal 74-106 [facility] Comment on above: Order Comment: Call MD with results STAT Result Comment: Canc elled via OM: MD Ordered Performed By: #### L 500.2500 #### [facility] [address] [place], [address] Potassium Normal 3.5-5.1 [facility] Comment on above: Order Comment: Call MD with results STAT Result Comment: Canc elled via OM: MD Ordered Performed By: #### L 500.2500 #### [facility] [address] [place], [address] Basic Metabolic Profile (BMP) Normal 136-145 [facility] Comment on above: Order Comment: Call MD with results STAT Result Comment: Canc elled via OM: MD Ordered Performed By: #### L 500.2500 #### [facility] [address] [place], [address] BUN/CRE 7.8 RATIO Low 10-20 [facility] Comment on above: Order Comment: Call MD with results STAT Performed By: #### L 500.2500 #### [facility] [address] [place], [address] CA,Total 8.7 mg/dL Normal 8.5-10.1 [facility] Comment on above: Order Comment: Call MD with results STAT Performed By: #### L 500.2500 #### [facility] [address] [place], [address] Chloride [Moles/Vol] 104 mmol/L Normal 98-107 [facility] Comment on above: Order Comment: Call MD with results STAT Performed By: #### L 500.2500 #### [facility] [address] [place], [address] CO2 [Moles/Vol] 27.0 mmol/L Normal 21.0-32.0 [facility] Comment on above: Order Comment: Call MD with results STAT Performed By: #### L 500.2500 #### [facility] [address] [place], [address] Creatinine [Mass/Vol] 0.90 mg/dL Normal 0.70-1.30 [facility] Comment on above: Order Comment: Call MD with results STAT Result Comment: The validity of the calculated GFR GFRAA in patients over 70 years has not been determined. Clinical correlation is essential. Performed By: #### L 500.2500 #### [facility] [address] [place], [address] ECRCL 91.25 ml/min Normal [facility] Comment on above: Order Comment: Call MD with results STAT Performed By: #### L 500.2500 #### [facility] [address] [place], [address] EST GFR - AA 111 mL/min Normal >60 [facility] Comment on above: Order Comment: Call MD with results STAT Result Comment: Afri can Russian GFR Calc Performed By: #### L 500.2500 #### [facility] [address] [place], [address] GAP 6 Normal 5-15 [facility] Comment on above: Order Comment: Call MD with results STAT Performed By: #### L 500.2500 #### [facility] [address] [place], [address] GFR/1.73 sq M.predicted among non-blacks MDRD (S/P/Bld) [Vol rate/Area] 92 mL/min/{1.73_m2} Normal >60 [facility] Comment on above: Order Comment: Call MD with results STAT Result Comment: Non- GFR Calc Performed By: #### L 500.2500 #### [facility] [address] [place], [address] Glucose [Mass/Vol] 75 mg/dL Normal 74-106 [facility] Comment on above: Order Comment: Call MD with results STAT Performed By: #### L 500.2500 #### [facility] [address] [place], [address] Potassium [Moles/Vol] 3.5 mmol/L Normal 3.5-5.1 [facility] Comment on above: Order Comment: Call MD with results STAT Performed By: #### L 500.2500 #### [facility] [address] [place], [address] Sodium [Moles/Vol] 138 mmol/L Normal 136-145 [facility] Comment on above: Order Comment: Call MD with results STAT Performed By: #### L 500.2500 #### [facility] [address] [place], [address] Urea nitrogen [Mass/Vol] 7 mg/dL Normal 7-18 [facility] Comment on above: Order Comment: Call MD with results STAT Performed By: #### L 500.2500 #### [facility] [address] [place], [address] BUN/CRE 11.1 RATIO Normal 10-20 [facility] Comment on above: Order Comment: Call MD with results STAT Performed By: #### L 500.2500 #### [facility] [address] [place], [address] CA,Total 8.6 mg/dL Normal 8.5-10.1 [facility] Comment on above: Order Comment: Call MD with results STAT Performed By: #### L 500.2500 #### [facility] [address] [place], [address] Chloride [Moles/Vol] 106 mmol/L Normal 98-107 [facility] Comment on above: Order Comment: Call MD with results STAT Performed By: #### L 500.2500 #### [facility] [address] [place], [address] CO2 [Moles/Vol] 24.0 mmol/L Normal 21.0-32.0 [facility] Comment on above: Order Comment: Call MD with results STAT Performed By: #### L 500.2500 #### [facility] [address] [place], [address] Creatinine [Mass/Vol] 0.81 mg/dL Normal 0.70-1.30 [facility] Comment on above: Order Comment: Call MD with results STAT Result Comment: The validity of the calculated GFR GFRAA in patients over 70 years has not been determined. Clinical correlation is essential. Performed By: #### L 500.2500 #### [facility] [address] [place], [address] ECRCL 101.39 ml/min Normal [facility] Comment on above: Order Comment: Call MD with results STAT Performed By: #### L 500.2500 #### [facility] [address] [place], [address] EST GFR - AA 125 mL/min Normal >60 [facility] Comment on above: Order Comment: Call MD with results STAT Result Comment: Afri can Russian GFR Calc Performed By: #### L 500.2500 #### [facility] [address] [place], [address] GAP 6 Normal 5-15 [facility] Comment on above: Order Comment: Call MD with results STAT Performed By: #### L 500.2500 #### [facility] [address] [place], [address] GFR/1.73 sq M.predicted among non-blacks MDRD (S/P/Bld) [Vol rate/Area] 103 mL/min/{1.73_m2} Normal >60 [facility] Comment on above: Order Comment: Call MD with results STAT Result Comment: Non- GFR Calc Performed By: #### L 500.2500 #### [facility] [address] [place], [address] Glucose [Mass/Vol] 98 mg/dL Normal 74-106 [facility] Comment on above: Order Comment: Call MD with results STAT Performed By: #### L 500.2500 #### [facility] [address] [place], [address] Potassium [Moles/Vol] 3.6 mmol/L Normal 3.5-5.1 [facility] Comment on above: Order Comment: Call MD with results STAT Performed By: #### L 500.2500 #### [facility] [address] [place], [address] Sodium [Moles/Vol] 137 mmol/L Normal 136-145 [facility] Comment on above: Order Comment: Call MD with results STAT Performed By: #### L 500.2500 #### [facility] [address] [place], [address] Urea nitrogen [Mass/Vol] 9 mg/dL Normal 7-18 [facility] Comment on above: Order Comment: Call MD with results STAT Performed By: #### L 500.2500 #### [facility] [address] [place], [address] Bedside Glucoseon 06-20-2024 FINGERSTICK GLU 197 mg/dL High 74-106 [facility] Comment on above: Result Comment: VÍCTOR GEMENT OF PATIENT CARE PER NURSING PROTOCOL Performed By: #### L 501.080 ####[facility] [address] [place], [address] FINGERSTICK GLU 220 mg/dL High 74-106 [facility] Comment on above: Result Comment: VÍCTOR GEMENT OF PATIENT CARE PER NURSING PROTOCOL Performed By: #### L 501.080 ####[facility] [address] [place], [address] FINGERSTICK GLU 170 mg/dL High 74-106 [facility] Comment on above: Result Comment: VÍCTOR GEMENT OF PATIENT CARE PER NURSING PROTOCOL Performed By: #### L 501.080 ####[facility] [address] [place], [address] FINGERSTICK GLU 103 mg/dL Normal 74-106 [facility] Comment on above: Result Comment: VÍCTOR GEMENT OF PATIENT CARE PER NURSING PROTOCOL Performed By: #### L 501.080 ####[facility] [address] [place], [address] FINGERSTICK GLU 166 mg/dL High 74-106 [facility] Comment on above: Result Comment: VÍCTOR GEMENT OF PATIENT CARE PER NURSING PROTOCOL Performed By: #### L 500.2500 #### [facility] [address] [place], [address] CBC W/Diff, Automatedon 09-2 Absolute Lymph 1.80 X10 3/uL Normal 0.83-4.51 [facility] Comment on above: Performed By: #### L 500.4050, L100.0100, L501.2300, L501.5200, L501.9985 ####[facility] [address] [place], [address] Absolute Neut 6.5 X10 3/uL Normal 2.0-7.7 [facility] Comment on above: Performed By: #### L 500.4050, L100.0100, L501.2300, L501.5200, L501.9985 ####[facility] [address] [place], [address] Basophils/100 WBC (Bld) 0.4 % Normal 0-1 [facility] Comment on above: Performed By: #### L 500.4050, L100.0100, L501.2300, L501.5200, L501.9985 ####[facility] [address] [place], [address] Eosinophils/100 WBC (Bld) 0.6 % Normal 0-5 [facility] Comment on above: Performed By: #### L 500.4050, L100.0100, L501.2300, L501.5200, L501.9985 ####[facility] [address] [place], [address] Erythrocyte distribution width (RBC) [Ratio] 12.4 % Normal 11.6-14.6 [facility] Comment on above: Performed By: #### L 500.4050, L100.0100, L501.2300, L501.5200, L501.9985 ####[facility] [address] [place], [address] Hematocrit (Bld) [Volume fraction] 40.5 % Normal 40-54 [facility] Comment on above: Performed By: #### L 500.4050, L100.0100, L501.2300, L501.5200, L501.9985 ####[facility] [address] [place], [address] Hemoglobin (Bld) [Mass/Vol] 13.5 g/dL Normal 13.0-16.5 [facility] Comment on above: Performed By: #### L 500.4050, L100.0100, L501.2300, L501.5200, L501.9985 ####[facility] [address] [place], [address] IG% 0.400 Normal 0.0-0.9 [facility] Comment on above: Result Comment: IG% - Immature Granulocytes (promyelocytes, myelocytes and metamyelocytes) > 1% indicates that a LEFT SHIFT is Present. Performed By: #### L 500.4050, L100.0100, L501.2300, L501.5200, L501.9985 ####[facility] [address] [place], [address] Lymphocytes/100 WBC (Bld) 19.5 % Normal 19-41 [facility] Comment on above: Performed By: #### L 500.4050, L100.0100, L501.2300, L501.5200, L501.9985 ####[facility] [address] [place], [address] MCH (RBC) [Entitic mass] 30.9 pg Normal 27.0-32.0 [facility] Comment on above: Performed By: #### L 500.4050, L100.0100, L501.2300, L501.5200, L501.9985 ####[facility] [address] [place], [address] MCHC (RBC) [Mass/Vol] 33.3 g/dL Normal 32-36 [facility] Comment on above: Performed By: #### L 500.4050, L100.0100, L501.2300, L501.5200, L501.9985 ####[facility] [address] [place], [address] MCV (RBC) [Entitic vol] 92.7 fL Normal 80-94 [facility] Comment on above: Performed By: #### L 500.4050, L100.0100, L501.2300, L501.5200, L501.9985 ####[facility] [address] [place], [address] Monocytes/100 WBC (Bld) 9.2 % Normal 0-10 [facility] Comment on above: Performed By: #### L 500.4050, L100.0100, L501.2300, L501.5200, L501.9985 ####[facility] [address] [place], [address] Neutrophils/100 WBC (Bld) 69.9 % Normal 47-70 [facility] Comment on above: Performed By: #### L 500.4050, L100.0100, L501.2300, L501.5200, L501.9985 ####[facility] [address] [place], [address] Nucleated RBC (Bld) [#/Vol] 0 10*3/uL Normal 0-5 [facility] Comment on above: Performed By: #### L 500.4050, L100.0100, L501.2300, L501.5200, L501.9985 ####[facility] [address] [place], [address] Platelet mean volume (Bld) [Entitic vol] 9.4 fL Normal 6.2-12.0 [facility] Comment on above: Performed By: #### L 500.4050, L100.0100, L501.2300, L501.5200, L501.9985 ####[facility] [address] [place], [address] Platelets (Bld) [#/Vol] 180 10*3/uL Normal 150-450 [facility] Comment on above: Performed By: #### L 500.4050, L100.0100, L501.2300, L501.5200, L501.9985 ####[facility] [address] [place], [address] RBC (Bld) [#/Vol] 4.37 10*6/uL Low 4.6-6.2 [facility] Comment on above: Performed By: #### L 500.4050, L100.0100, L501.2300, L501.5200, L501.9985 ####[facility] [address] [place], [address] RDW SD 42.4 fl Normal 35.1-43.9 [facility] Comment on above: Performed By: #### L 500.4050, L100.0100, L501.2300, L501.5200, L501.9985 ####[facility] [address] [place], [address] WBC (Bld) [#/Vol] 9.2 10*3/uL Normal 4.4-11.0 [facility] Comment on above: Performed By: #### L 500.4050, L100.0100, L501.2300, L501.5200, L501.9985 ####[facility] [address] [place], [address] Comprehensive Metabolic Prof [facility] 06-20-2024 Albumin [Mass/Vol] 3.7 g/dL Normal 3.2-5.0 [facility] Comment on above: Order Comment: Call MD with results STAT Performed By: #### L 500.4050, L100.0100, L501.2300, L501.5200, L501.9985 ####[facility] [address] [place], [address] Albumin/Globulin [Mass ratio] 1.1 {ratio} Normal 0.9-2.4 [facility] Comment on above: Order Comment: Call MD with results STAT Performed By: #### L 500.4050, L100.0100, L501.2300, L501.5200, L501.9985 ####[facility] [address] [place], [address] ALK P 67 U/L Normal 45-117 [facility] Comment on above: Order Comment: Call MD with results STAT Performed By: #### L 500.4050, L100.0100, L501.2300, L501.5200, L501.9985 ####[facility] [address] [place], [address] ALT [Catalytic activity/Vol] 22 U/L Normal 16-61 [facility] Comment on above: Order Comment: Call MD with results STAT Performed By: #### L 500.4050, L100.0100, L501.2300, L501.5200, L501.9985 ####[facility] [address] [place], [address] AST [Catalytic activity/Vol] 22 U/L Normal 15-37 [facility] Comment on above: Order Comment: Call MD with results STAT Performed By: #### L 500.4050, L100.0100, L501.2300, L501.5200, L501.9985 ####[facility] [address] [place], [address] Bilirubin [Mass/Vol] 1.00 mg/dL Normal 0.20-1.00 [facility] Comment on above: Order Comment: Call MD with results STAT Result Comment: For patients on eltrombopag therapy, use of Dimension [place] TBIL is not recommended. Performed By: #### L 500.4050, L100.0100, L501.2300, L501.5200, L501.9985 ####[facility] [address] [place], [address] BUN/CRE 9.4 RATIO Low 10-20 [facility] Comment on above: Order Comment: Call MD with results STAT Performed By: #### L 500.4050, L100.0100, L501.2300, L501.5200, L501.9985 ####[facility] [address] [place], [address] CA,Total 8.7 mg/dL Normal 8.5-10.1 [facility] Comment on above: Order Comment: Call MD with results STAT Performed By: #### L 500.4050, L100.0100, L501.2300, L501.5200, L501.9985 ####[facility] [address] [place], [address] Chloride [Moles/Vol] 106 mmol/L Normal 98-107 [facility] Comment on above: Order Comment: Call MD with results STAT Performed By: #### L 500.4050, L100.0100, L501.2300, L501.5200, L501.9985 ####[facility] [address] [place], [address] CO2 [Moles/Vol] 26.0 mmol/L Normal 21.0-32.0 [facility] Comment on above: Order Comment: Call MD with results STAT Performed By: #### L 500.4050, L100.0100, L501.2300, L501.5200, L501.9985 ####[facility] [address] [place], [address] Creatinine [Mass/Vol] 0.96 mg/dL Normal 0.70-1.30 [facility] Comment on above: Order Comment: Call MD with results STAT Result Comment: The validity of the calculated GFR GFRAA in patients over 70 years has not been determined. Clinical correlation is essential. Performed By: #### L 500.4050, L100.0100, L501.2300, L501.5200, L501.9985 ####[facility] [address] [place], [address] ECRCL 85.55 ml/min Normal [facility] Comment on above: Order Comment: Call MD with results STAT Performed By: #### L 500.4050, L100.0100, L501.2300, L501.5200, L501.9985 ####[facility] [address] [place], [address] EST GFR - AA 104 mL/min Normal >60 [facility] Comment on above: Order Comment: Call MD with results STAT Result Comment: Afri can Russian GFR Calc Performed By: #### L 500.4050, L100.0100, L501.2300, L501.5200, L501.9985 ####[facility] [address] [place], [address] GAP 7 Normal 5-15 [facility] Comment on above: Order Comment: Call MD with results STAT Performed By: #### L 500.4050, L100.0100, L501.2300, L501.5200, L501.9985 ####[facility] [address] [place], [address] GFR/1.73 sq M.predicted among non-blacks MDRD (S/P/Bld) [Vol rate/Area] 86 mL/min/{1.73_m2} Normal >60 [facility] Comment on above: Order Comment: Call MD with results STAT Result Comment: Non- GFR Calc Performed By: #### L 500.4050, L100.0100, L501.2300, L501.5200, L501.9985 ####[facility] [address] [place], [address] Globulin (S) [Mass/Vol] 3.4 g/dL Normal 2.2-4.2 [facility] Comment on above: Order Comment: Call MD with results STAT Performed By: #### L 500.4050, L100.0100, L501.2300, L501.5200, L501.9985 ####[facility] [address] [place], [address] Glucose [Mass/Vol] 135 mg/dL High 74-106 [facility] Comment on above: Order Comment: Call MD with results STAT Result Comment: Fast ing Glucose result greater than or equal to 126 mg/dL suggests DIABETES MELLITUS per A.D.A. criteria. Performed By: #### L 500.4050, L100.0100, L501.2300, L501.5200, L501.9985 ####[facility] [address] [place], [address] Potassium [Moles/Vol] 3.8 mmol/L Normal 3.5-5.1 [facility] Comment on above: Order Comment: Call MD with results STAT Performed By: #### L 500.4050, L100.0100, L501.2300, L501.5200, L501.9985 ####[facility] [address] [place], [address] Sodium [Moles/Vol] 138 mmol/L Normal 136-145 [facility] Comment on above: Order Comment: Call MD with results STAT Performed By: #### L 500.4050, L100.0100, L501.2300, L501.5200, L501.9985 ####[facility] [address] [place], [address] T PROT 7.1 g/dL Normal 6.4-8.2 [facility] Comment on above: Order Comment: Call MD with results STAT Performed By: #### L 500.4050, L100.0100, L501.2300, L501.5200, L501.9985 ####[facility] [address] [place], [address] Urea nitrogen [Mass/Vol] 9 mg/dL Normal 7-18 [facility] Comment on above: Order Comment: Call MD with results STAT Performed By: #### L 500.4050, L100.0100, L501.2300, L501.5200, L501.9985 ####[facility] [address] [place], [address] Hemoglobin A1con 09-26-2024 HbA1c (Bld) [Mass fraction] 6.9 % High 3.8-5.6 [facility] Comment on above: Result Comment: Norm al < 5.7 % Prediabetic 5.7 - 6.4 % Diabetic >or= 6.5 % Please note range changes. Performed By: #### L 500.2500 #### [facility] [address] [place], [place], [address] Lactic Acidon 06-20-2024 Lactate [Moles/Vol] 0.7 mmol/L Normal 0.4-1.9 [facility] Comment on above: Performed By: #### L 503.6005 ####[facility] [address] [place], [address] Magnesiumon 06-20-2024 Magnesium [Mass/Vol] 2.6 mg/dL Normal 1.6-2.6 [facility] Comment on above: Order Comment: Call MD with results STAT Performed By: #### L 500.4050, L100.0100, L501.2300, L501.5200, L501.9985 ####[facility] [address] [place], [address] Phosphoruson 06-20-2024 Phosphate [Mass/Vol] 1.7 mg/dL Low 2.5-4.9 [facility] Comment on above: Order Comment: Call MD with results STAT Performed By: #### L 500.4050, L100.0100, L501.2300, L501.5200, L501.9985 ####[facility] [address] [place], [address] 12 Lead EKGon 06-19-2024 12 Lead EKG [facility] [address] [place] [address] 12 Lead EKG 06/19/24 1136 MR#: [id number] Acct: [id number] Name: BRONSON WELLER Rep #: [id number] : 1965 59 From: Brock Stratton MD Attending Dr: Dr. Dillon Harrell MD Status : ADM IN Ordering Dr: Brady Rogel DO Date: 06/19/24 Location: [facility] Sex: M AA Admitted: 06/19/24 Test Reason : Blood Pressure : / mmHG Vent. Rate : 113 BPM Atrial Rate : 113 BPM P-R Int : 142 ms QRS Dur : 078 ms QT Int : 328 ms P-R-T Axes : 076 010 052 degrees QTc Int : 449 ms Sinus tachycardia Nonspecific T wave abnormality Abnormal ECG Confirmed by Brock Stratton ([id number]), tape editor JOÃO FLANNERY ([id number]) on 06/21/2024 9:41:28 AM Referred By: Confirmed By:Brock Stratton 06/21/24940 Date Brock Stratton MD CC: Dr. Dillon Harrell MD; Dr. Brady Rogel DO; Dr. Lobito Maldonado MD Signed Normal [facility] Abdomen/Pelvis without Conto n 06-19-2024 Abdomen/Pelvis without Cont [facility] Imaging Services [address] [place] [id number] Abdomen/Pelvis without Cont MR#: [id number] Acct: [id number] Name: BRONSON WELLER Rep #: [id number] : 1965 M 59 From: Brendan young MD PCP: Dr. Lobito Maldonado MD Status: PRE ER Study: Abdomen/Pelvis without Cont Date of Exam: 05/27 02/15 Exam# [id number] Ordering Dr: Brady Rogel DO [id number] STUDY: CT ABDOMEN AND PELVIS WITHOUT CONTRAST REASON FOR EXAM: Male, 59 years old. hx of pancreatitis. Right upper quadrant pain. RADIATION DOSAGE (If Supplied By Facility): CTDIvol = ( 6.76 ) mGy, DLP = ( 349.69 ) mGycm TECHNIQUE: Transaxial images were obtained from the dome of the diaphragm to the symphysis pubis without oral contrast, and without intravenous contrast. Sagittal and coronal images were reconstructed. Individualized dose optimization techniques were used for this CT. COMPARISON: Comparison is made with prior study dated January 07, 2024. FINDINGS: The visualized lung bases are unremarkable. The visualized portions of the heart are within normal limits. There is decreased attenuation of the liver consistent with steatosis. Hepatomegaly. There is a 1.1 cm cyst in the anterior aspect of the left lobe of the liver. The patient is status post cholecystectomy. Normal spleen. Normal pancreas. Normal bilateral adrenal glands. Normal right kidney. Stable 1.7 cm left renal cyst. There is a small hiatal hernia. Normal small intestine. Normal colon. The appendix is visualized and appears normal. There is scattered atherosclerotic calcification of the abdominal aorta, without a demonstrated aneurysm. Normal inferior vena cava. Normal retroperitoneum. Normal urinary bladder. There is enlargement of the prostate gland. The prostate measures 3.5 x 5.3 cm. This causes indentation of the bladder base. Normal abdominal wall. Straightening of the normal lumbar lordosis. CT/Abdomen/Pelvis without Cont IMPRESSION: Status post cholecystectomy. Fatty eventration of the liver and mild hepatomegaly. Prostatic enlargement. Electronically Signed: Brendan Ty MD at 12:02 EDT Reading Location ID and State: [facility] / [place] , Service support , CC: Dr. Brady Rogel DO; Dr. 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, [address] Basic Metabolic Profile (BMP )on 06-19-2024 BUN/CRE 14.1 RATIO Normal 10-20 [facility] Comment on above: Order Comment: Call MD with results STAT Performed By: #### L 500.2500 #### [facility] [address] [place], [address] CA,Total 8.8 mg/dL Normal 8.5-10.1 [facility] Comment on above: Order Comment: Call MD with results STAT Performed By: #### L 500.2500 #### [facility] [address] [place], [address] Chloride [Moles/Vol] 106 mmol/L Normal 98-107 [facility] Comment on above: Order Comment: Call MD with results STAT Performed By: #### L 500.2500 #### [facility] [address] [place], [address] CO2 [Moles/Vol] 23.0 mmol/L Normal 21.0-32.0 [facility] Comment on above: Order Comment: Call MD with results STAT Performed By: #### L 500.2500 #### [facility] [address] [place], [address] Creatinine [Mass/Vol] 0.85 mg/dL Normal 0.70-1.30 [facility] Comment on above: Order Comment: Call MD with results STAT Result Comment: The validity of the calculated GFR GFRAA in patients over 70 years has not been determined. Clinical correlation is essential. Performed By: #### L 500.2500 #### [facility] [address] [place], [address] ECRCL 96.62 ml/min Normal [facility] Comment on above: Order Comment: Call MD with results STAT Performed By: #### L 500.2500 #### [facility] [address] [place], [address] EST GFR - AA 118 mL/min Normal >60 [facility] Comment on above: Order Comment: Call MD with results STAT Result Comment: Afri can Russian GFR Calc Performed By: #### L 500.2500 #### [facility] [address] [place], [address] GAP 9 Normal 5-15 [facility] Comment on above: Order Comment: Call MD with results STAT Performed By: #### L 500.2500 #### [facility] [address] [place], [address] GFR/1.73 sq M.predicted among non-blacks MDRD (S/P/Bld) [Vol rate/Area] 98 mL/min/{1.73_m2} Normal >60 [facility] Comment on above: Order Comment: Call MD with results STAT Result Comment: Non- GFR Calc Performed By: #### L 500.2500 #### [facility] [address] [place], [address] Glucose [Mass/Vol] 145 mg/dL High 74-106 [facility] Comment on above: Order Comment: Call MD with results STAT Result Comment: Fast ing Glucose result greater than or equal to 126 mg/dL suggests DIABETES MELLITUS per A.D.A. criteria. Performed By: #### L 500.2500 #### [facility] [address] [place], [address] Potassium [Moles/Vol] 3.3 mmol/L Low 3.5-5.1 [facility] Comment on above: Order Comment: Call MD with results STAT Performed By: #### L 500.2500 #### [facility] [address] [place], [address] Sodium [Moles/Vol] 138 mmol/L Normal 136-145 [facility] Comment on above: Order Comment: Call MD with results STAT Performed By: #### L 500.2500 #### [facility] [address] [place], [address] Urea nitrogen [Mass/Vol] 12 mg/dL Normal 7-18 [facility] Comment on above: Order Comment: Call MD with results STAT Performed By: #### L 500.2500 #### [facility] [address] [place], [address] BUN/CRE 10.3 RATIO Normal 10-20 [facility] Comment on above: Order Comment: Call MD with results STAT Performed By: #### L 500.2500 #### [facility] [address] [place], [address] CA,Total 8.2 mg/dL Low 8.5-10.1 [facility] Comment on above: Order Comment: Call MD with results STAT Performed By: #### L 500.2500 #### [facility] [address] [place], [address] Chloride [Moles/Vol] 103 mmol/L Normal 98-107 [facility] Comment on above: Order Comment: Call MD with results STAT Performed By: #### L 500.2500 #### [facility] [address] [place], [address] CO2 [Moles/Vol] 19.0 mmol/L Low 21.0-32.0 [facility] Comment on above: Order Comment: Call MD with results STAT Performed By: #### L 500.2500 #### [facility] [address] [place], [address] Creatinine [Mass/Vol] 1.26 mg/dL Normal 0.70-1.30 [facility] Comment on above: Order Comment: Call MD with results STAT Result Comment: The validity of the calculated GFR GFRAA in patients over 70 years has not been determined. Clinical correlation is essential. Performed By: #### L 500.2500 #### [facility] [address] [place], [address] ECRCL 65.18 ml/min Normal [facility] Comment on above: Order Comment: Call MD with results STAT Performed By: #### L 500.2500 #### [facility] [address] [place], [address] EST GFR - AA 75 mL/min Normal >60 [facility] Comment on above: Order Comment: Call MD with results STAT Result Comment: Afri can Russian GFR Calc Performed By: #### L 500.2500 #### [facility] [address] [place], [address] GAP 13 Normal 5-15 [facility] Comment on above: Order Comment: Call MD with results STAT Performed By: #### L 500.2500 #### [facility] [address] [place], [address] GFR/1.73 sq M.predicted among non-blacks MDRD (S/P/Bld) [Vol rate/Area] 62 mL/min/{1.73_m2} Normal >60 [facility] Comment on above: Order Comment: Call MD with results STAT Result Comment: Non- GFR Calc Performed By: #### L 500.2500 #### [facility] [address] [place], [address] Glucose [Mass/Vol] 174 mg/dL High 74-106 [facility] Comment on above: Order Comment: Call MD with results STAT Result Comment: Fast ing Glucose result greater than or equal to 126 mg/dL suggests DIABETES MELLITUS per A.D.A. criteria. Performed By: #### L 500.2500 #### [facility] [address] [place], [address] Potassium [Moles/Vol] 3.8 mmol/L Normal 3.5-5.1 [facility] Comment on above: Order Comment: Call MD with results STAT Performed By: #### L 500.2500 #### [facility] [address] [place], [address] Sodium [Moles/Vol] 135 mmol/L Low 136-145 [facility] Comment on above: Order Comment: Call MD with results STAT Performed By: #### L 500.2500 #### [facility] [address] [place], [address] Urea nitrogen [Mass/Vol] 13 mg/dL Normal 7-18 [facility] Comment on above: Order Comment: Call MD with results STAT Performed By: #### L 500.2500 #### [facility] [address] [place], [address] BUN/CRE 13.3 RATIO Normal 10-20 [facility] Comment on above: Order Comment: Call MD with results STAT Performed By: #### L 500.2500 #### [facility] [address] [place], [address] CA,Total 8.5 mg/dL Normal 8.5-10.1 [facility] Comment on above: Order Comment: Call MD with results STAT Performed By: #### L 500.2500 #### [facility] [address] [place], [address] Chloride [Moles/Vol] 104 mmol/L Normal 98-107 [facility] Comment on above: Order Comment: Call MD with results STAT Performed By: #### L 500.2500 #### [facility] [address] [place], [address] CO2 [Moles/Vol] 19.0 mmol/L Low 21.0-32.0 [facility] Comment on above: Order Comment: Call MD with results STAT Performed By: #### L 500.2500 #### [facility] [address] [place], [address] Creatinine [Mass/Vol] 1.05 mg/dL Normal 0.70-1.30 [facility] Comment on above: Order Comment: Call MD with results STAT Result Comment: The validity of the calculated GFR GFRAA in patients over 70 years has not been determined. Clinical correlation is essential. Performed By: #### L 500.2500 #### [facility] [address] [place], [address] ECRCL 78.21 ml/min Normal [facility] Comment on above: Order Comment: Call MD with results STAT Performed By: #### L 500.2500 #### [facility] [address] [place], [address] EST GFR - AA 93 mL/min Normal >60 [facility] Comment on above: Order Comment: Call MD with results STAT Result Comment: Afri can Russian GFR Calc Performed By: #### L 500.2500 #### [facility] [address] [place], [address] GAP 13 Normal 5-15 [facility] Comment on above: Order Comment: Call MD with results STAT Performed By: #### L 500.2500 #### [facility] [address] [place], [address] GFR/1.73 sq M.predicted among non-blacks MDRD (S/P/Bld) [Vol rate/Area] 77 mL/min/{1.73_m2} Normal >60 [facility] Comment on above: Order Comment: Call MD with results STAT Result Comment: Non- GFR Calc Performed By: #### L 500.2500 #### [facility] [address] [place], [address] Glucose [Mass/Vol] 98 mg/dL Normal 74-106 [facility] Comment on above: Order Comment: Call MD with results STAT Performed By: #### L 500.2500 #### [facility] [address] [place], [address] Potassium [Moles/Vol] 4.3 mmol/L Normal 3.5-5.1 [facility] Comment on above: Order Comment: Call MD with results STAT Performed By: #### L 500.2500 #### [facility] [address] [place], [address] Sodium [Moles/Vol] 136 mmol/L Normal 136-145 [facility] Comment on above: Order Comment: Call MD with results STAT Performed By: #### L 500.2500 #### [facility] [address] [place], [address] Urea nitrogen [Mass/Vol] 14 mg/dL Normal 7-18 [facility] Comment on above: Order Comment: Call MD with results STAT Performed By: #### L 500.2500 #### [facility] [address] [place], [address] BUN/CRE 13.8 RATIO Normal 10-20 [facility] Comment on above: Performed By: #### L 500.2500 #### [facility] [address] [place], [address] CA,Total 9.2 mg/dL Normal 8.5-10.1 [facility] Comment on above: Performed By: #### L 500.2500 #### [facility] [address] [place], [address] Chloride [Moles/Vol] 102 mmol/L Normal 98-107 [facility] Comment on above: Performed By: #### L 500.2500 #### [facility] [address] [place], [address] CO2 [Moles/Vol] 17.0 mmol/L Low 21.0-32.0 [facility] Comment on above: Performed By: #### L 500.2500 #### [facility] [address] [place], [address] Creatinine [Mass/Vol] 1.09 mg/dL Normal 0.70-1.30 [facility] Comment on above: Result Comment: The validity of the calculated GFR GFRAA in patients over 70 years has not been determined. Clinical correlation is essential. Performed By: #### L 500.2500 #### [facility] [address] [place], [address] ECRCL 75.34 ml/min Normal [facility] Comment on above: Performed By: #### L 500.2500 #### [facility] [address] [place], [address] EST GFR - AA 89 mL/min Normal >60 [facility] Comment on above: Result Comment: Afri can Russian GFR Calc Performed By: #### L 500.2500 #### [facility] [address] [place], [address] GAP 16 High 5-15 [facility] Comment on above: Performed By: #### L 500.2500 #### [facility] [facility] [address] [place], [address] GFR/1.73 sq M.predicted among non-blacks MDRD (S/P/Bld) [Vol rate/Area] 74 mL/min/{1.73_m2} Normal >60 [facility] Comment on above: Result Comment: Non- GFR Calc Performed By: #### L 500.2500 #### [facility] [address] [place], [address] Glucose [Mass/Vol] 111 mg/dL High 74-106 [facility] Comment on above: Result Comment: Fast ing Glucose result from 100 to 125 mg/dL suggests IMPAIRED HOMEOSTASIS per A.D.A. criteria. Performed By: #### L 500.2500 #### [facility] [address] [place], [address] Potassium [Moles/Vol] 4.4 mmol/L Normal 3.5-5.1 [facility] Comment on above: Performed By: #### L 500.2500 #### [facility] [address] [place], [address] Sodium [Moles/Vol] 135 mmol/L Low 136-145 [facility] Comment on above: Performed By: #### L 500.2500 #### [facility] [address] [place], [address] Urea nitrogen [Mass/Vol] 15 mg/dL Normal 7-18 [facility] Comment on above: Performed By: #### L 500.2500 #### [facility] [address] [place], [address] Bedside Glucoseon 06-19-2024 FINGERSTICK GLU 130 mg/dL High 74-106 [facility] Comment on above: Result Comment: VÍCTOR GEMENT OF PATIENT CARE PER NURSING PROTOCOL Performed By: #### L 500.2500 #### [facility] [address] [place], [address] FINGERSTICK GLU 58 mg/dL Low 74-106 [facility] Comment on above: Result Comment: VÍCTOR GEMENT OF PATIENT CARE PER NURSING PROTOCOL Performed By: #### L 500.2500 #### [facility] [address] [place], [address] FINGERSTICK GLU 95 mg/dL Normal 74-106 [facility] Comment on above: Result Comment: VÍCTOR GEMENT OF PATIENT CARE PER NURSING PROTOCOL Performed By: #### L 500.2500 #### [facility] [address] [place], [address] Blood [facility] CRISTINE TEST Positive Normal [facility] Comment on above: Performed By: #### L 501.080 #### [facility] [address] [place], [address] Base excess Calc (Bld) [Moles/Vol] -7 mmol/L Low -2 to +2 [facility] Comment on above: Performed By: #### L 501.080 #### [facility] [address] [place], [address] Blood Gas Type ART Normal [facility] Comment on above: Performed By: #### L 501.080 #### [facility] [address] [place], [address] CO2 [Moles/Vol] 19 mmol/L Normal [facility] Comment on above: Performed By: #### L 501.080 #### [facility] [address] [place], [address] FI02 21.0 Normal [facility] Comment on above: Performed By: #### L 501.080 #### [facility] [address] [place], [address] HCO3 (Bld) [Moles/Vol] 18.2 mmol/L Low 22-26 [facility] Comment on above: Performed By: #### L 501.080 #### [facility] [address] [place], [address] Mode Not entered Normal [facility] Comment on above: Performed By: #### L 501.080 #### [facility] [address] [place], [address] O2 Delivery Dev Room Air Normal [facility] Comment on above: Performed By: #### L 501.080 #### [facility] [address] [place], [address] pCO2 31.3 mmHg Low 35-45 [facility] Comment on above: Performed By: #### L 501.080 #### [facility] [address] [place], [address] pH (Bld) 7.37 [pH] Normal 7.35-7.45 [facility] Comment on above: Performed By: #### L 501.080 #### [facility] [address] [place], [address] PO2 73 mmHG Low 75-100 [facility] Comment on above: Performed By: #### L 501.080 #### [facility] [address] [place], [address] SITE L Radial Normal [facility] Comment on above: Performed By: #### L 501.080 #### [facility] [address] [place], [address] SO2 94 Low 95-99 [facility] Comment on above: Performed By: #### L 501.080 #### [facility] [address] [place], [address] CBC W/Diff, Automatedon 09-2 5-2024 Absolute Lymph 2.09 X10 3/uL Normal 0.83-4.51 [facility] Comment on above: Performed By: #### L 501.080 #### [facility] [address] [place], [address] Absolute Neut 11.1 X10 3/uL High 2.0-7.7 [facility] Comment on above: Performed By: #### L 501.080 #### [facility] [address] [place], [address] Basophils/100 WBC (Bld) 0.6 % Normal 0-1 [facility] Comment on above: Performed By: #### L 501.080 #### [facility] [address] [place], [address] Eosinophils/100 WBC (Bld) 0.1 % Normal 0-5 [facility] Comment on above: Performed By: #### L 501.080 #### [facility] [address] [place], [address] Erythrocyte distribution width (RBC) [Ratio] 12.4 % Normal 11.6-14.6 [facility] Comment on above: Performed By: #### L 501.080 #### [facility] [address] [place], [address] Hematocrit (Bld) [Volume fraction] 45.3 % Normal 40-54 [facility] Comment on above: Performed By: #### L 501.080 #### [facility] [address] [place], [address] Hemoglobin (Bld) [Mass/Vol] 14.8 g/dL Normal 13.0-16.5 [facility] Comment on above: Performed By: #### L 501.080 #### [facility] [address] [place], [address] IG% 0.700 Normal 0.0-0.9 [facility] Comment on above: Result Comment: IG% - Immature Granulocytes (promyelocytes, myelocytes and metamyelocytes) > 1% indicates that a LEFT SHIFT is Present. Performed By: #### L 501.080 #### [facility] [address] [place], [address] Lymphocytes/100 WBC (Bld) 14.8 % Low 19-41 [facility] Comment on above: Performed By: #### L 501.080 #### [facility] [address] [place], [address] MCH (RBC) [Entitic mass] 30.6 pg Normal 27.0-32.0 [facility] Comment on above: Performed By: #### L 501.080 #### [facility] [address] [place], [address] MCHC (RBC) [Mass/Vol] 32.7 g/dL Normal 32-36 [facility] Comment on above: Performed By: #### L 501.080 #### [facility] [address] [place], [address] MCV (RBC) [Entitic vol] 93.6 fL Normal 80-94 [facility] Comment on above: Performed By: #### L 501.080 #### [facility] [address] [place], [address] Monocytes/100 WBC (Bld) 5.2 % Normal 0-10 [facility] Comment on above: Performed By: #### L 501.080 #### [facility] [address] [place], [address] Neutrophils/100 WBC (Bld) 78.6 % High 47-70 [facility] Comment on above: Performed By: #### L 501.080 #### [facility] [address] [place], [address] Nucleated RBC (Bld) [#/Vol] 0 10*3/uL Normal 0-5 [facility] Comment on above: Performed By: #### L 501.080 #### [facility] [address] [place], [address] Platelet mean volume (Bld) [Entitic vol] 9.3 fL Normal 6.2-12.0 [facility] Comment on above: Performed By: #### L 501.080 #### [facility] [address] [place], [address] Platelets (Bld) [#/Vol] 235 10*3/uL Normal 150-450 [facility] Comment on above: Performed By: #### L 501.080 #### [facility] [address] [place], [address] RBC (Bld) [#/Vol] 4.84 10*6/uL Normal 4.6-6.2 [facility] Comment on above: Performed By: #### L 501.080 #### [facility] [address] [place], [address] RDW SD 43.0 fl Normal 35.1-43.9 [facility] Comment on above: Performed By: #### L 501.080 #### [facility] [address] [place], [address] WBC (Bld) [#/Vol] 14.1 10*3/uL High 4.4-11.0 [facility] Comment on above: Performed By: #### L 501.080 #### [facility] [address] [place], [address] Comprehensive Metabolic Prof ilon 06-19-2024 Albumin [Mass/Vol] 4.2 g/dL Normal 3.2-5.0 [facility] Comment on above: Performed By: #### L 501.080 #### [facility] [address] [place], [address] Albumin/Globulin [Mass ratio] 1.1 {ratio} Normal 0.9-2.4 [facility] Comment on above: Performed By: #### L 501.080 #### [facility] [address] [place], [address] ALK P 73 U/L Normal 45-117 [facility] Comment on above: Performed By: #### L 501.080 #### [facility] [address] [place], [address] ALT [Catalytic activity/Vol] 27 U/L Normal 16-61 [facility] Comment on above: Performed By: #### L 501.080 #### [facility] [address] [place], [address] AST [Catalytic activity/Vol] 23 U/L Normal 15-37 [facility] Comment on above: Performed By: #### L 501.080 #### [facility] [address] [place], [address] Bilirubin [Mass/Vol] 0.60 mg/dL Normal 0.20-1.00 [facility] Comment on above: Result Comment: For patients on eltrombopag therapy, use of Dimension [place] TBIL is not recommended. Performed By: #### L 501.080 #### [facility] [address] [place], [address] BUN/CRE 13.2 RATIO Normal 10-20 [facility] Comment on above: Performed By: #### L 501.080 #### [facility] [address] [place], [address] CA,Total 9.6 mg/dL Normal 8.5-10.1 [facility] Comment on above: Performed By: #### L 501.080 #### [facility] [address] [place], [address] Chloride [Moles/Vol] 100 mmol/L Normal 98-107 [facility] Comment on above: Performed By: #### L 501.080 #### [facility] [address] [place], [address] CO2 [Moles/Vol] 13.0 mmol/L Low 21.0-32.0 [facility] Comment on above: Performed By: #### L 501.080 #### [facility] [address] [place], [address] Creatinine [Mass/Vol] 1.14 mg/dL Normal 0.70-1.30 [facility] Comment on above: Result Comment: The validity of the calculated GFR GFRAA in patients over 70 years has not been determined. Clinical correlation is essential. Performed By: #### L 501.080 #### [facility] [address] [place], [address] ECRCL 72.04 ml/min Normal [facility] Comment on above: Performed By: #### L 501.080 #### [facility] [address] [place], [address] EST GFR - AA 85 mL/min Normal >60 [facility] Comment on above: Result Comment: Afri can [place] GFR Calc Performed By: #### L 501.080 #### [facility] [address] [place], [address] GAP 22 High 5-15 [facility] Comment on above: Performed By: #### L 501.080 #### [facility] [address] [place], [address] GFR/1.73 sq M.predicted among non-blacks MDRD (S/P/Bld) [Vol rate/Area] 70 mL/min/{1.73_m2} Normal >60 [facility] Comment on above: Result Comment: Non- GFR Calc Performed By: #### L 501.080 #### [facility] [address] [place], [address] Globulin (S) [Mass/Vol] 3.9 g/dL Normal 2.2-4.2 [facility] Comment on above: Performed By: #### L 501.080 #### [facility] [address] [place], [address] Glucose [Mass/Vol] 93 mg/dL Normal 74-106 [facility] Comment on above: Performed By: #### L 501.080 #### [facility] [address] [place], [address] Potassium [Moles/Vol] 3.9 mmol/L Normal 3.5-5.1 [facility] Comment on above: Performed By: #### L 501.080 #### [facility] [address] [place], [address] Sodium [Moles/Vol] 134 mmol/L Low 136-145 [facility] Comment on above: Performed By: #### L 501.080 #### [facility] [address] [place], [address] T PROT 8.1 g/dL Normal 6.4-8.2 [facility] Comment on above: Performed By: #### L 501.080 #### [facility] [address] [place], [address] Urea nitrogen [Mass/Vol] 15 mg/dL Normal 7-18 [facility] Comment on above: Performed By: #### L 501.080 #### [facility] [address] [place], [address] Emergency Department Summary on 06-19-2024 Emergency Department Summary [facility] Medical Records Department [address] [place] [address] Emergency Department Summary 06/19/24 MR#: [id number] Acct: [id number] Name: BRONSON WELLER Rep #: [id number] : 1965 59 From: Brady Rogel DO PCP: Dr. Lobito Maldonado MD Status:ADM IN Location: [place] [address] Brady Rogel DO on 06/19/24 at 1600 Patient's EKG was reviewed and independently interpreted by myself which showed sinus tachycardia with a rate of [address] changes noted. 06/19/24 1600 Cosigner Signature (if applicable): cc: Dr. Lobito Maldonado MD * Signed HPI History of Present Illness Chief Complaint: Abd Pain Narrative Narrative: Patient is a 59-year-old male with past medical history of chronic pancreatitis states that he had alcoholic pancreatitis in the past, states that he has had his gallbladder removed, GERD, seizure disorder, anxiety, depression, hypertension who presented to the emergency department chief complaint of concern for pancreatitis. Patient states that yesterday he started developing abdominal pain in his epigastric region and things were not improving prompting him to come here for the evaluation management. Patient states that he was really nauseous before arrival and noted that he took Zofran prior to arrival and states that his nausea is better he rates his pain a 8 out of 10. Patient denies any alcohol use. [facility] Medical History Liver fibrosis Myocardial infarct Stroke/cerebrovascular accident Alcohol abuse Vision loss of right eye Vision loss of left eye Cancer Neck pain PSA elevation GI bleed TIA (transient ischemic attack) Diabetes Family history of cerebral aneurysm Polyneuropathy Gastric ulcer GERD (gastroesophageal reflux disease) Former tobacco use Constipation Glaucoma Seizure disorder Hyperlipidemia PTSD (post-traumatic stress disorder) Anxiety and depression Essential (primary) hypertension Home Medications ???Medication ???Instructions ???Recorded ???Last Taken ???Type amitriptyline 25 mg tablet 25 mg PO QHS depression 07/03/18 01/06/24 History cholecalciferol (vitamin D3) 125 1 cap PO DAILY supplement 11/09/18 01/06/24 History mcg (5,000 unit) capsule hydrochlorothiazide 25 mg tablet 25 mg PO DAILY blood 06/05/20 01/06/24 Rx pressure/heart #30 tabs gabapentin 300 mg capsule 300 mg PO BID nerve pain 10/06/20 01/06/24 History metformin 500 mg tablet 500 mg PO BID diabetes #0 tabs 03/04/22 01/06/24 Rx aspirin 81 mg tablet,delayed 81 mg PO DAILY heart health 07/04/22 01/06/24 History release escitalopram oxalate 10 mg tablet 10 mg PO DAILY depression 07/04/22 01/06/24 History losartan 25 mg tablet 25 mg PO DAILY blood pressure 07/04/22 01/06/24 History ondansetron 4 mg disintegrating 4 mg PO TID PRN nausea and 01/07/24 Unknown Rx tablet vomiting #21 tabs pantoprazole 40 mg tablet,delayed 40 mg PO DAILY #30 tabs 01/08/24 Unknown Rx release (Protonix) tamsulosin 0.4 mg capsule 0.4 mg PO DAILY@1730 30 days #30 01/08/24 Unknown Rx caps ursodiol 250 mg tablet 250 mg PO BID #180 TABLETS 01/29/24 Unknown Rx [id number]-[id number] 2 cap PO .COMPLEX #300 caps 02/08/24 Unknown Rx 12,000-38,000-60,000 unit capsule,delayed rel (Creon) empagliflozin 10 mg tablet 10 mg PO DAILY 02/25/24 Unknown History (Jardiance) insulin glargine 100 unit/mL (3 10 unit subcut QHS 02/25/24 Unknown History mL) subcutaneous pen (Lantus Solostar U-100 Insulin) latanoprost 0.005 % eye drops 1 drp ophthalmic (eye) QHS 02/25/24 Unknown History loratadine 10 mg tablet 10 mg PO DAILY 02/25/24 Unknown History magnesium oxide 400 mg (241.3 mg 400 mg PO BID 02/25/24 Unknown History magnesium) tablet ondansetron 4 mg disintegrating 4 mg PO Q8H PRN PRN Nausea #20 tabs 02/25/24 Unknown Rx tablet pravastatin 20 mg tablet 20 mg PO DAILY 02/25/24 Unknown History levetiracetam 500 mg tablet 500 mg PO BID #60 tabs 04/18/24 Unknown Rx levocarnitine 330 mg tablet 660 mg (2 x 330 mg) PO BID #120 04/18/24 Unknown Rx tabs amlodipine 10 mg tablet 10 mg PO DAILY blood pressure #90 05/24/24 Unknown Rx tabs Allergy/AdvReac Type Severity Reaction Status Date / Time Iodinated Contrast Media Allergy Mild Rash Verified 06/19/24 11:14 hydromorphone (From Dilaudid) Allergy Itching Verified 06/19/24 11:14 lisinopril Allergy Angioedema Verified 06/19/24 11:14 cyclobenzaprine AdvReac Severe Skin Verified 06/19/24 11:14 crawling hydrocodone bitartrate (From AdvReac Itching Verified 06/19/24 11:14 Vicodin) morphine AdvReac Itching Verified 06/19/24 11:14 tramadol AdvReac Itching Verified 06/19/24 11:14 Family History ... Normal [facility] H AND P Exam - [facility] 06-19-2024 H&P Exam - Hospitalist [facility] Medical Records Department [address] [place] [address] H P Exam - Hospitalist 06/19/24 1422 MR#: [id number] Acct: [id number] Name: BRONSON WELLER Rep #: [id number] : 1965 59 From: Roxana Cox MD PCP: Dr. Lobito Maldonado MD Status:REG ER Location: ED HPI - General General Date of Admission: 06/19/24 Date of Service: 06/19/24 Chief Complaint: Abdominal pain HPI Narrative BRONSON WELLER, is a 59-year-old male history of chronic pancreatitis, fatty liver, seizure disorder, GERD, hypertension, diabetes, BPH presented to [facility] ED 06/19/2024 due to epigastric pain that began the day prior. Patient had been in his usual health until yesterday when he began to have epigastric pain radiating towards the right side of his abdomen, has been progressively worse prompting him to come to the ED. Patient is also experienced nausea but has not had significant vomiting as he took Zofran at home. Denies any diarrhea or constipation, no fevers or chills, ROS otherwise negative. Patient reports he has not drink in 2 months and has not smoked cigarettes in 9 years, denies any other substance use aside from occasional marijuana. In the ED patient had white blood cell count of 14.1, anion gap of 22 with a carbon dioxide of 13. He was initially thought that maybe he had recurrent pancreatitis however lipase only [address] abdomen without signs of pancreatitis so further workup for patient's high anion gap metabolic acidosis ordered and hospitalist contacted for admission. Patient evaluated at bedside and reports history as above, no chest pain or shortness of breath, no cough, no burning on urination or other urinary symptoms. No new cuts or rashes or bleeding, bruising, injury. Labs did result with ketones in urine and acetone in blood however with IV fluids Starting to close and tachycardia improving so we will send him to PCU with subcu insulin/push dextrose and continue IV fluids. [facility] Medical History Liver fibrosis Myocardial infarct Stroke/cerebrovascular accident Alcohol abuse Vision loss of right eye Vision loss of left eye Cancer Neck pain PSA elevation GI bleed TIA (transient ischemic attack) Diabetes Family history of cerebral aneurysm Polyneuropathy Gastric ulcer GERD (gastroesophageal reflux disease) Former tobacco use Constipation Glaucoma Seizure disorder Hyperlipidemia PTSD (post-traumatic stress disorder) Anxiety and depression Essential (primary) hypertension Home Medications ???Medication ???Instructions ???Recorded ???Last Taken ???Type amitriptyline 25 mg tablet 25 mg PO QHS depression 07/03/18 01/06/24 History cholecalciferol (vitamin D3) 125 1 cap PO DAILY supplement 11/09/18 01/06/24 History mcg (5,000 unit) capsule hydrochlorothiazide 25 mg tablet 25 mg PO DAILY blood 06/05/20 01/06/24 Rx pressure/heart #30 tabs gabapentin 300 mg capsule 300 mg PO BID nerve pain 10/06/20 01/06/24 History metformin 500 mg tablet 500 mg PO BID diabetes #0 tabs 03/04/22 01/06/24 Rx aspirin 81 mg tablet,delayed 81 mg PO DAILY heart health 07/04/22 01/06/24 History release escitalopram oxalate 10 mg tablet 10 mg PO DAILY depression 07/04/22 01/06/24 History losartan 25 mg tablet 25 mg PO DAILY blood pressure 07/04/22 01/06/24 History ondansetron 4 mg disintegrating 4 mg PO TID PRN nausea and 01/07/24 Unknown Rx tablet vomiting #21 tabs pantoprazole 40 mg tablet,delayed 40 mg PO DAILY #30 tabs 01/08/24 Unknown Rx release (Protonix) tamsulosin 0.4 mg capsule 0.4 mg PO DAILY@1730 30 days #30 01/08/24 Unknown Rx caps ursodiol 250 mg tablet 250 mg PO BID #180 TABLETS 01/29/24 Unknown Rx ighehq-kuozwssi-uovwqsw 2 cap PO .COMPLEX #300 caps 02/08/24 Unknown Rx 12,000-38,000-60,000 unit capsule,delayed rel (Creon) empagliflozin 10 mg tablet 10 mg PO DAILY 02/25/24 Unknown History (Jardiance) insulin glargine 100 unit/mL (3 10 unit subcut QHS 02/25/24 Unknown History mL) subcutaneous pen (Lantus Solostar U-100 Insulin) latanoprost 0.005 % eye drops 1 drp ophthalmic (eye) QHS 02/25/24 Unknown History loratadine 10 mg tablet 10 mg PO DAILY 02/25/24 Unknown History magnesium oxide 400 mg (241.3 mg 400 mg PO BID 02/25/24 Unknown History magnesium) tablet ondansetron 4 mg disintegrating 4 mg PO Q8H PRN PRN Nausea #20 tabs 02/25/24 Unknown Rx tablet pravastatin 20 mg tablet 20 mg PO DAILY 02/25/24 Unknown History levetiracetam 500 mg tablet 500 mg PO BID #60 tabs 04/18/24 Unknown Rx levocarnitine 330 mg tablet 660 mg (2 x 330 mg) PO BID #120 04/18/24 Unknown Rx tabs amlodipine 10 mg tablet 10 mg PO DAILY blood pressure #90 05/24/24 Unknown Rx tabs Allergy/AdvReac Type Severity Reaction Status Date / (more content not included)... Normal [facility] Lactic Acidon 06-19-2024 Lactate [Moles/Vol] 2.6 mmol/L Invalid Interpretation Code 0.4-1.9 [facility] Comment on above: Order Comment: Y Performed By: #### L 500.2500 #### [facility] [address] [place], [address] Lactate [Moles/Vol] 5.5 mmol/L Invalid Interpretation Code 0.4-1.9 [facility] Comment on above: Performed By: #### L 500.2500 #### [facility] [address] [place], [address] Lactate [Moles/Vol] 3.0 mmol/L Invalid Interpretation Code 0.4-1.9 [facility] Comment on above: Order Comment: Y Result Comment: Crit ical Result(s) Called at: 14:53:19 06/19/2024 by: YAMILET MELGAR TO ASHISH. Results read back by same. Performed By: #### L 501.080 #### [facility] [address] [place], [address] Lipaseon 06-19-2024 Lipase [Catalytic activity/Vol] 109 U/L High 13-75 [facility] Comment on above: Result Comment: Roberto Carlos kwon note: LIPASE revised reference range effective 23. New Lipase methodology. Expected to produce lower values than the previous assay method. NEW Reference Range: 13 - 75 U/L Performed By: #### L 501.080 #### [facility] [address] [place], [address] Magnesiumon 06-19-2024 Magnesium [Mass/Vol] 2.8 mg/dL High 1.6-2.6 [facility] Comment on above: Order Comment: Call MD with results STAT Performed By: #### L 500.2500 #### [facility] [address] [place], [address] Magnesium [Mass/Vol] 1.6 mg/dL Normal 1.6-2.6 [facility] Comment on above: Order Comment: Call MD with results STAT Performed By: #### L 500.2500 #### [facility] [address] [place], [address] Magnesium [Mass/Vol] 1.7 mg/dL Normal 1.6-2.6 [facility] Comment on above: Order Comment: Call MD with results STAT Performed By: #### L 501.080 #### [facility] [address] [place], [address] Urinalysis, Completeon 06-19 BACTERIA 1+ /hpf Normal None Seen [facility] Comment on above: Order Comment: CLEAN CATCH Performed By: #### L 501.080 #### [facility] [address] [place], [address] EPI,SQUAMOUS 0-5 SEEN Normal 0-5 [facility] Comment on above: Order Comment: CLEAN CATCH Performed By: #### L 501.080 #### [facility] [address] [place], [address] Mucus Ql (Urine sed) 0 SEEN Normal [facility] Comment on above: Order Comment: CLEAN CATCH Performed By: #### L 501.080 #### [facility] [address] [place], [address] RBC 0 SEEN Normal 0-5 [facility] Comment on above: Order Comment: CLEAN CATCH Performed By: #### L 501.080 #### [facility] [address] [place], [address] WBC 0 SEEN Normal 0-5 [facility] Comment on above: Order Comment: CLEAN CATCH Performed By: #### L 501.080 #### [facility] [address] [place], [address] MRCP Abdomen without Contras ton 05-03-2024 MRCP Abdomen without Contrast [facility] [address] [place], [place] [id number] MRCP Abdomen without Contrast MR#: [id number] Acct: [id number] Name: BRONSON WELLER Rep #: [id number] : 1965 M 59 From: Keith angeles MD PCP: Dr. Lobito Maldonado MD Status: REG CLI Study: MRCP Abdomen without Contrast Date of Exam: Exam# [id number] Ordering Dr: Taras Santamaria DO [id number] MRCP without contrast 05/03/2024 3:47 PM COMPARISON: 05/14/2021 CLINICAL HISTORY: chronic pancreatitis, ABDOMEN PAIN, COMPARE TO PREVIOUS MRCP AND CT ABDOMEN TECHNIQUE: Multiplanar and multisequence MR images of the abdomen were obtained with MRCP sequence. Three-dimensional post-processing reconstructions were performed. FINDINGS: Liver: Unremarkable Gallbladder: Surgically absent. Bile Ducts: Unremarkable Pancreas: Unremarkable Spleen: Unremarkable Adrenal Glands: Unremarkable Kidneys: 1.7 cm simple cyst in the left kidney. GI Tract: Unremarkable Lymphadenopathy: Absent Ascites: Absent Bones: No suspicious lesions MRI/MRCP Abdomen without Contrast IMPRESSION: Unremarkable MRI and MRCP of the abdomen Electronically Signed: Keith Tidwell MD at 15:56 EDT , CC: Dr. Lobito Maldonado MD; Taras Santamaria DO Top Bottom Attaching Machine Operator: Signed Normal [facility] CNNURSEon 04-29-2024 CNNURSE Nurse Visit (FAMPWS) ----- BRONSON WELLER ([id number]) 1965 M Date Time Provider Department 04/29/24 1:15 PM [place] NURSE MATTHEW During your visit today, we recorded the following information about you: Rosemarie Palacios LPN 04/29/2024 1:20 PM Signed Patient presents for Hepatitis B vaccine. Denies any problems at this time. Tolerated injection well. oRsemarie Palacios LPN Allergies As of Date: 04/29/2024 Noted Allergy Reaction CYCLOBENZAPRINE 03/26/2021 9 - Itching IODINATED CONTRAST MEDIA 10/26/2022 9 - Itching IODINE 11/09/2022 9 - Itching LISINOPRIL 05/07/2013 7 - Swelling Comments: mouth and throat NARCOTICS (OPIOIDS - MORPHINE KELLY*11/27/2020 9 - Itching TRAMADOL 01/01/2016 9 - Itching VICODIN (HYDROCODONE-ACETAMINOPHE *05/07/2013 7 - Swelling Comments: mouth and throat Date Reviewed: 02/05/2024 Reviewed by: Alis Chua, PLANT ELECTRICAL ENGINEER.MATERIALS PLANNER/PRODUCTION PLANNER - Fully Assessed Reason for Visit: Imm/Inj [58] Primary Visit Diagnosis:Need for vaccination [Z23] Prescriptions as of 04/29/2024 - flash glucose sensor (FREESTYLE AGUSTIN 14 DAY SENSOR) kit 1 Each every 2 weeks. - FREESTYLE AGUSTIN 3 SENSOR josse Apply 1 Kit to affected area as directed. Change twice monthly. Check blood glucose four or more times daily. - empagliflozin (JARDIANCE) 10 mg tablet Take 1 tablet by mouth daily with breakfast. - magnesium oxide (MAG-OX) 400 mg (241.3 mg magnesium) tablet Take 1 tablet by mouth two times a day. - tamsulosin (FLOMAX) 0.4 mg Take 1 capsule by mouth once daily. 30 minutes after the same meal each day. - losartan (COZAAR) 25 mg tablet Take 1 tablet by mouth once daily. - hydroCHLOROthiazide 25 mg tablet Take 1 tablet by mouth once daily. - gabapentin (NEURONTIN) 300 mg capsule Take 1 capsule by mouth two times a day for 180 days. - Cholecalciferol, Vitamin D3, 125 mcg (5,000 unit) cap Take 1 capsule by mouth once daily. - metFORMIN (GLUCOPHAGE) 500 mg tablet Take 1 tablet by mouth two times a day with meals. - amitriptyline (ELAVIL) 25 mg tablet Take 1 tablet by mouth daily at bedtime. - escitalopram oxalate (LEXAPRO) 10 mg tablet Take 1 tablet by mouth once daily. - aspirin, enteric coated (ASPIRIN, ENTERIC COATED) 81 mg EC tablet Take 1 tablet by mouth once daily. - loratadine (CLARITIN) 10 mg tablet Take 1 tablet by mouth once daily. - pravastatin (PRAVACHOL) 20 mg tablet Take 1 tablet by mouth once daily. - ondansetron orally disintegrating (ZOFRAN ODT) 4 mg disintegrating tablet Take by mouth. - latanoprost (XALATAN) 0.005 % ophthalmic solution Use 1 Drop in both eyes daily at bedtime. - Blood-Glucose Meter,Continuous (FREESTYLE AGUSTIN 3 READER) [facility] [place] glucose 4 or more times daily. - pantoprazole DR (PROTONIX) 40 mg tablet Take 1 tablet by mouth once daily. - insulin glargine (LANTUS SOLOSTAR U-100 INSULIN) 100 unit/mL (3 mL) Inject 16 Units subcutaneously daily at bedtime. - ursodiol (AILYN) 250 mg tablet Take 1 tablet by mouth twice daily. Per [facility]. - xedjtu-qfylcacf-cvthbss (CREON) 12,000-38,000 -60,000 unit delayed release capsule Take 1 capsule by mouth three times daily with meals. - levOCARNitine (CARNITOR) 330 mg tablet Take 330 mg by mouth twice daily. - folic acid 1 mg tablet Take 1 mg by mouth three times daily. - naproxen (NAPROSYN) 500 mg tablet Take 1 tablet by mouth twice daily as needed for pain. As needed for pain - levETIRAcetam (KEPPRA) 500 mg tablet Take 1 tablet by mouth twice daily. Per Dr. Burnett - amLODIPine (NORVASC) 10 mg tablet Take 1 tablet by mouth once daily. PER HEART GROUP. - GAS RELIEF 80, SIMETHICONE, ORAL Take 1 tablet by mouth three times daily. - docosahexaenoic acid/epa (FISH OIL ORAL) Take by mouth once daily. - fluticasone propionate (FLONASE NASAL) Use in the nose once daily. - Multivitamin capsule Take 1 capsule by mouth once daily. - nitroglycerin sublingual (NITROQUICK) 0.4 mg SL tablet Dissolve 0.4 mg under the tongue every 5 minutes as needed. Problem List As Of Date 04/29/2024 Noted Resolved DDD (degenerative disc disease), thoracic [...] 12/01/2020 05/16/2022 Prostate cancer (HCC) [C61] 01/26/2021 Pregl (more content not included)... Normal [facility] Neurology Visit Reporton Neurology Visit Report [facility] [address], [address] [place] [address] OFFICE VISIT Date of Service: 04/18/24 MR#: [id number] Acct: [id number] Name: BRONSON WELLER Rep #: [id number] : 1965 Provider: Dr. Antony shafer MD Age/Sex: 59/M Location: [facility] Status: Signed [facility] Chief Complaint: Details: Interim History: Bronson returns for follow-up visit. He has a history of hypercholesterolemia, hypertension, diabetes mellitus, coronary artery disease, [place] (2011), and epilepsy. He began to have seizures around 2017. His seizures begin with tinnitus followed by tremulousness and subsequent loss of consciousness. He has had associated urinary incontinence and one episode of associated tongue- biting and has postictal confusion and lethargy. Initially, his seizures were occurring about once every 2 weeks. He started levetiracetam in 2018 and had a reduction in his seizure frequency to about once every 3 months. In September 2020, his levetiracetam was increased to 500mg BID. Since increasing his levetiracetam, he has had 3 seizures (2 in November 2020 and 1 in January 2021), each preceded by a missed dose of levetiracetam. He subsequently has had better compliance in taking his medication. He previously had a few brief seizure auras without subsequent seizures, which have occurred in the morning before his morning dose of levetiracetam. His last levetiracetam level (November 2023) was in the therapeutic range. His ammonia level was previously elevated. His dose of levocarnitine was increased earlier in 2023 and a subsequent ammonia level was normal. Lactulose was not well-tolerated. He has numbness and stinging pain in the feet due to a polyneuropathy. He takes gabapentin and this is of benefit for his neuropathic pain. A TSH, folate, B12, CMP, CBC and kappa lambda light chains completed in 10/2020 demonstrated an elevated glucose of 149 and elevated free kappa light chains. His subsequent serum protein electrophoresis, serum immunoelectrophoresis and urine immunoelectrophoresis in July 2022 revealed no monoclonality (serum and urine) and no M spike observed. He had a concussion due to a fall around 2000. 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 He does not have any significant history. He has a family history of cerebral aneurysm; his sister has had multiple cerebral aneurysms. His head MRA in February 2021 was unremarkable. His brain MRI from 2018 showed chronic white matter ischemic changes. He takes aspirin 81mg daily. He has a history of pancreatitis and fatty liver. He takes Creon. He is under the care of a residential appliance repair technician, Dr. Santamaria. Since his visit in July 2022 he discontinued the use of alcohol. Physical Exam: Neuro: The patient is awake and alert and responds appropriately; speech is fluent; motor strength is 5/5 in the foot dorsiflexors bilaterally Heart: Regular rate and rhythm Supplemental Info MRI brain without contrast (06/05/2012): No acute infarction or other acute abnormality identified. Minimal small, nonspecific signal changes in the bilateral parietal white matter. Echocardiogram (03/03/2014): Normal LV size. Left ventricular systolic function is normal. The estimated ejection fraction is 60 %. Mild concentric left ventricular hypertrophy. Structurally normal valves. EKG (12/22/2014): Normal sinus rhythm Nonspecific T wave abnormality Abnormal ECG Brain CT (12/29/2016): Normal unenhanced CT scan of the brain. Brain MRI (11/02/2017): There are a limited number of small white matter hyperintensities, distributed throughout the deep white matter tracts of the cerebral hemispheres, nonspecific but most commonly seen with mild chronic white matter ischemic changes. IMPRESSION: No acute intracranial abnormality or masses. EEG (11/19/2017): Normal awake electroencephalogram. Cervical spine MRI (04/03/2018): C5/C6: Moderate left foraminal stenosis. C6/C7: Moderate left foraminal stenosis. Left upper extremity EMG + NCS (07/24/2018): Normal electrophysiologic study of the left upper extremity. EKG (08/31/2019): Sinus tachycardia Minimal voltage criteria for LVH, may be normal variant Nonspecific T wave abnormality Abnormal ECG Labs (04/24/2020): Hemoglobin A1c 6.7% (H) Lipid panel: Normal Vitamin D: Sufficient Labs (04/30/2020): CBCD: WBC 13.5 (H), RBC 4.42 (L) CMP: Glucose 174 (H), serum creatinine 1.35 (H), estimated GFR 71 Lipase: 563 (H) CBC, CMP, TSH, levetiracetam, Folate, B12, K/L Light Chains, Ammonia (10/26/20): NA 135, Vitamin B12 524. Free K Light Chains 29 (H) Levetiracetam: 10.7 (within therapeutic range) Head MRA (03/04/2021): Unremarkable MRA head. Levetiracetam(03/04/2021): 14.1 (within therapeutic range) Labs (04/22/2021): Ammonia: 50.0 (H) Bowles/lambda light chains: free kappa light chains 31.1 (H) SPEP + ROSI: presence of monoclo (more content not included)... Normal [facility] Carbohydrate AG 19-9on 04-06 CA 19-9 12 U/mL Normal 0-35 [facility] Comment on above: Result Comment: Mentegram Electrochemiluminescence Immunoassay (ECLIA) Values obtained with different assay methods or kits cannot be used interchangeably. Results cannot be interpreted as absolute evidence of the presence or absence of malignant disease. Performed at: [facility] [id number] Maintenance Assistant: Andre Doty PhD, Phone: [phone] Performed By: #### L 501.080 #### [facility] [address] [place], [place], [id number] Gastroenterology Visit Repor ton 04-04-2024 Gastroenterology Visit Report [facility] [address] [place] [address] OFFICE VISIT Date of Service: 04/04/24 MR#: [id number] Acct: [id number] Name: BRONSON WELLER Rep #: [id number] : 1965 Provider: Taras Santamaria DO Age/Sex: 58/M [place] [facility] Status: Signed Intake Vital Signs 08/09/23 03:27 02/25/24 11:03 Height 5 ft 10 in 5 ft 10 in Intake Visit Reasons: 6 M FU Chief Complaint: Chronic pancreatitis Allergies Iodinated Contrast Media Allergy (Mild, Verified 02/25/24 11:06) Rash hydromorphone (From Dilaudid) Allergy (Verified 02/25/24 11:06) Itching lisinopril Allergy (Verified 02/25/24 11:06) Angioedema cyclobenzaprine Adverse Reaction (Severe, Verified 02/25/24 11:06) Skin crawling hydrocodone bitartrate (From Vicodin) Adverse Reaction (Verified 02/25/24 11:06) Itching morphine Adverse Reaction (Verified 02/25/24 11:06) Itching tramadol Adverse Reaction (Verified 02/25/24 11:06) Itching Medications ???Medication ???Instructions ???Recorded ???Confirmed ???Type amitriptyline 25 mg tablet 25 mg PO QHS depression 07/03/18 04/04/24 History cholecalciferol (vitamin D3) 125 1 cap PO DAILY supplement 11/09/18 04/04/24 History mcg (5,000 unit) capsule hydrochlorothiazide 25 mg tablet 25 mg PO DAILY blood 06/05/20 04/04/24 Rx pressure/heart #30 tabs gabapentin 300 mg capsule 300 mg PO BID nerve pain 10/06/20 04/04/24 History metformin 500 mg tablet 500 mg PO BID diabetes #0 tabs 03/04/22 04/04/24 Rx aspirin 81 mg tablet,delayed 81 mg PO DAILY heart health 07/04/22 04/04/24 History release escitalopram oxalate 10 mg tablet 10 mg PO DAILY depression 07/04/22 04/04/24 History losartan 25 mg tablet 25 mg PO DAILY blood pressure 07/04/22 04/04/24 History amlodipine 10 mg tablet 10 mg PO DAILY blood pressure #90 06/26/23 04/04/24 Rx tabs diphenhydramine HCl 25 mg capsule 25 mg PO TID PRN allergy symptoms 10/10/23 04/04/24 Rx (Benadryl) #30 caps levocarnitine 330 mg tablet 660 mg (2 x 330 mg) PO BID #120 10/24/23 04/04/24 Rx tabs ondansetron 4 mg disintegrating 4 mg PO TID PRN nausea and 01/07/24 04/04/24 Rx tablet vomiting #21 tabs diphenhydramine HCl 25 mg capsule 25 mg PO TID PRN itching #20 caps 01/08/24 04/04/24 Rx (Benadryl) pantoprazole 40 mg tablet,delayed 40 mg PO DAILY #30 tabs 01/08/24 04/04/24 Rx release (Protonix) tamsulosin 0.4 mg capsule 0.4 mg PO DAILY@1730 30 days #30 01/08/24 04/04/24 Rx caps ursodiol 250 mg tablet 250 mg PO BID #180 TABLETS 01/29/24 04/04/24 Rx njlmqs-ipsbbmfw-dxmaehj 2 cap PO .COMPLEX #300 caps 02/08/24 04/04/24 Rx 12,000-38,000-60,000 unit capsule,delayed rel (Creon) empagliflozin 10 mg tablet 10 mg PO DAILY 02/25/24 04/04/24 History (Jardiance) insulin glargine 100 unit/mL (3 10 unit subcut QHS 02/25/24 04/04/24 History mL) subcutaneous pen (Lantus Solostar U-100 Insulin) latanoprost 0.005 % eye drops 1 drp ophthalmic (eye) QHS 02/25/24 04/04/24 History levetiracetam 500 mg tablet 500 mg PO BID 02/25/24 04/04/24 History loratadine 10 mg tablet 10 mg PO DAILY 02/25/24 04/04/24 History magnesium oxide 400 mg (241.3 mg 400 mg PO BID 02/25/24 04/04/24 History magnesium) tablet ondansetron 4 mg disintegrating 4 mg PO Q8H PRN PRN Nausea #20 tabs 02/25/24 04/04/24 Rx tablet pravastatin 20 mg tablet 20 mg PO DAILY 02/25/24 04/04/24 History PFSH Medical History Liver fibrosis Myocardial infarct Stroke/cerebrovascular accident Alcohol abuse Vision loss of right eye Vision loss of left eye Cancer Neck pain PSA elevation GI bleed TIA (transient ischemic attack) Diabetes Family history of cerebral aneurysm Polyneuropathy Gastric ulcer GERD (gastroesophageal reflux disease) Former tobacco use Constipation Glaucoma Seizure disorder Hyperlipidemia PTSD (post-traumatic stress disorder) Anxiety and depression Essential (primary) hypertension Surgical History History of cholecystectomy (12/2013) History of left heart catheterization (10/31/11) Family History Mother Heart disease Sister Cerebral aneurysm Father Diabetes Kidney disease Anxiety and depression Social History household members: none Smoking Status: Former smoker Tobacco: How many years used: 7 Electronic Cigarette Use: not used alcohol intake: former details: 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 substance use type: does not use caffeine: No robbin/tenriism: Tenriism seatbelt use: always HPI HPI Chief Complaint: Chronic pancreatitis Details: BRONSON WELLER, is a 58 M who presents to the office today f (more content not included)... [facility] 02-27-2024 CNPN Telephone (INTMWS) ----- NITHINBRONSON ([id number]) 1965 M Date Time Provider Department 02/27/24 ALIS CHUA INTTonioWS During your visit today, we recorded the following information about you: Rhona Samayoa LPN 02/27/2024 3:39 PM Signed ----- Message from Alis Chua APRN.EVA sent at 02/27/2024 3:08 PM EDT ----- Please let the patient know the echocardiogram was okay. Recommend scheduling follow-up with his permit specialist Alis Chua APRN.Rhona Rinaldi LPN 02/27/2024 3:44 PM Signed Below results left on identified vm. Advised Patient to call [facility] for follow-up appt. Rhona Samayoa LPN Allergies As of Date: 02/27/2024 Noted Allergy Reaction CYCLOBENZAPRINE 03/26/2021 9 - Itching IODINATED CONTRAST MEDIA 10/26/2022 9 - Itching IODINE 11/09/2022 9 - Itching LISINOPRIL 05/07/2013 7 - Swelling Comments: mouth and throat NARCOTICS (OPIOIDS - MORPHINE KELLY*11/27/2020 9 - Itching TRAMADOL 01/01/2016 9 - Itching VICODIN (HYDROCODONE-ACETAMINOPHE *05/07/2013 7 - Swelling Comments: mouth and throat Date Reviewed: 02/05/2024 Reviewed by: Alis Chua APRN.EVA - Fully Assessed Reason for Visit: Results [95] Prescriptions as of 02/27/2024 - tamsulosin (FLOMAX) 0.4 mg Take 1 capsule by mouth once daily. 30 minutes after the same meal each day. - empagliflozin (JARDIANCE) 10 mg tablet Take 1 tablet by mouth daily with breakfast. - losartan (COZAAR) 25 mg tablet Take 1 tablet by mouth once daily. - hydroCHLOROthiazide 25 mg tablet Take 1 tablet by mouth once daily. - gabapentin (NEURONTIN) 300 mg capsule Take 1 capsule by mouth two times a day for 180 days. - Cholecalciferol, Vitamin D3, 125 mcg (5,000 unit) cap Take 1 capsule by mouth once daily. - metFORMIN (GLUCOPHAGE) 500 mg tablet Take 1 tablet by mouth two times a day with meals. - amitriptyline (ELAVIL) 25 mg tablet Take 1 tablet by mouth daily at bedtime. - escitalopram oxalate (LEXAPRO) 10 mg tablet Take 1 tablet by mouth once daily. - aspirin, enteric coated (ASPIRIN, ENTERIC COATED) 81 mg EC tablet Take 1 tablet by mouth once daily. - loratadine (CLARITIN) 10 mg tablet Take 1 tablet by mouth once daily. - pravastatin (PRAVACHOL) 20 mg tablet Take 1 tablet by mouth once daily. - FREESTYLE AGUSTIN 3 SENSOR josse - ondansetron orally disintegrating (ZOFRAN ODT) 4 mg disintegrating tablet Take by mouth. - latanoprost (XALATAN) 0.005 % ophthalmic solution Use 1 Drop in both eyes daily at bedtime. - Blood-Glucose Meter,Continuous (FREESTYLE AGUSTIN 3 READER) [facility] [place] Check glucose 4 or more times daily. - flash glucose sensor (FREESTYLE AGUSTIN 14 DAY SENSOR) kit 1 Each every 2 weeks. - pantoprazole DR (PROTONIX) 40 mg tablet Take 1 tablet by mouth once daily. - insulin glargine (LANTUS SOLOSTAR U-100 INSULIN) 100 unit/mL (3 mL) Inject 16 Units subcutaneously daily at bedtime. - magnesium oxide (MAG-OX) 400 mg (241.3 mg magnesium) tablet Take 1 tablet by mouth two times a day. - ursodiol (AILYN) 250 mg tablet Take 1 tablet by mouth twice daily. Per [facility]. - ungafg-mcqvglbi-rxwbjax (CREON) 12,000-38,000 -60,000 unit delayed release capsule Take 1 capsule by mouth three times daily with meals. - levOCARNitine (CARNITOR) 330 mg tablet Take 330 mg by mouth twice daily. - folic acid 1 mg tablet Take 1 mg by mouth three times daily. - naproxen (NAPROSYN) 500 mg tablet Take 1 tablet by mouth twice daily as needed for pain. As needed for pain - levETIRAcetam (KEPPRA) 500 mg tablet Take 1 tablet by mouth twice daily. Per Dr. Burnett - amLODIPine (NORVASC) 10 mg tablet Take 1 tablet by mouth once daily. PER HEART GROUP. - GAS RELIEF 80, SIMETHICONE, ORAL Take 1 tablet by mouth three times daily. - docosahexaenoic acid/epa (FISH OIL ORAL) Take by mouth once daily. - fluticasone propionate (FLONASE NASAL) Use in the nose once daily. - Multivitamin capsule Take 1 capsule by mouth once daily. - nitroglycerin sublingual (NITROQUICK) 0.4 mg SL tablet Dissolve 0.4 mg under the tongue every 5 minutes as needed. Problem List As Of Date 02/27/2024 Noted Resolved DDD (degenerative disc disease), thoracic [...] to pollen [J30.1]12/01/2020 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 (more content not included)... Normal [facility] 12 Lead EKGon 02-25-2024 12 Lead EKG [facility] [address] [place] [address] 12 Lead EKG 02/25/24 1112 MR#: [id number] Acct: [id number] Name: BRONSON WELLER #: [id number] : 1965 58 From: Brock Stratton MD Attending Dr: Status: DEP ER Ordering Dr: Alejandro Gandhi MD Date: 02/25/24 Location: ED Sex: M AA Admitted: Test Reason : CP Blood Pressure : / mmHG Vent. Rate : 106 BPM Atrial Rate : 106 BPM P-R Int : 144 ms QRS Dur : 076 ms QT Int : 350 ms P-R-T Axes : 073 011 061 degrees QTc Int : 464 ms Sinus tachycardia Otherwise normal ECG Confirmed by Brock Stratton ([id number]), tape editor JOÃO FLANNERY ([id number]) on 02/26/2024 9:21:35 AM Referred By: Confirmed By:Brock Stratton 02/26/24921 Date Brock Stratton MD CC: Dr. Alejandro Gandhi MD; Dr. Lobito Maldonado MD Signed Normal [facility] Basic Metabolic Profile (BMP )on 02-25-2024 BUN/CRE 17.6 RATIO Normal 10-20 [facility] Comment on above: Order Comment: 1 Y Performed By: #### L 100.0100, L300.3900, L500.2500, L501.5425 #### [facility] [address] [place], [address] CA,Total 10.0 mg/dL Normal 8.5-10.1 [facility] Comment on above: Order Comment: 1 Y Performed By: #### L 100.0100, L300.3900, L500.2500, L501.5425 #### [facility] [address] [place], [address] Chloride [Moles/Vol] 95 mmol/L Low 98-107 [facility] Comment on above: Order Comment: 1 Y Performed By: #### L 100.0100, L300.3900, L500.2500, L501.5425 #### [facility] [address] [place], [address] CO2 [Moles/Vol] 19.0 mmol/L Low 21.0-32.0 [facility] Comment on above: Order Comment: 1 Y Performed By: #### L 100.0100, L300.3900, L500.2500, L501.5425 #### [facility] [address] [place], [address] Creatinine [Mass/Vol] 1.19 mg/dL Normal 0.70-1.30 [facility] Comment on above: Order Comment: 1 Y Result Comment: The validity of the calculated GFR GFRAA in patients over 70 years has not been determined. Clinical correlation is essential. Performed By: #### L 100.0100, L300.3900, L500.2500, L501.5425 #### [facility] [address] [place], [address] ECRCL 69.86 ml/min Normal [facility] Comment on above: Order Comment: 1 Y Performed By: #### L 100.0100, L300.3900, L500.2500, L501.5425 #### [facility] [address] [place], [address] EST GFR - AA 81 mL/min Normal >60 [facility] Comment on above: Order Comment: 1 Y Result Comment: Afri can Russian GFR Calc Performed By: #### L 100.0100, L300.3900, L500.2500, L501.5425 #### [facility] [address] [place], [address] GAP 17 High 5-15 [facility] Comment on above: Order Comment: 1 Y Performed By: #### L 100.0100, L300.3900, L500.2500, L501.5425 #### [facility] [address] [place], [address] GFR/1.73 sq M.predicted among non-blacks MDRD (S/P/Bld) [Vol rate/Area] 67 mL/min/{1.73_m2} Normal >60 [facility] Comment on above: Order Comment: 1 Y Result Comment: Non- GFR Calc Performed By: #### L 100.0100, L300.3900, L500.2500, L501.5425 #### [facility] [address] [place], [address] Glucose [Mass/Vol] 150 mg/dL High 74-106 [facility] Comment on above: Order Comment: 1 Y Result Comment: Fast ing Glucose result greater than or equal to 126 mg/dL suggests DIABETES MELLITUS per A.D.A. criteria. Performed By: #### L 100.0100, L300.3900, L500.2500, L501.5425 #### [facility] [address] [place], [address] Potassium [Moles/Vol] 3.7 mmol/L Normal 3.5-5.1 [facility] Comment on above: Order Comment: 1 Y Performed By: #### L 100.0100, L300.3900, L500.2500, L501.5425 #### [facility] [address] [place], [address] Sodium [Moles/Vol] 131 mmol/L Low 136-145 [facility] Comment on above: Order Comment: 1 Y Performed By: #### L 100.0100, L300.3900, L500.2500, L501.5425 #### [facility] [address] [place], [address] Urea nitrogen [Mass/Vol] 21 mg/dL High 7-18 [facility] Comment on above: Order Comment: 1 Y Performed By: #### L 100.0100, L300.3900, L500.2500, L501.5425 #### [facility] [address] [place], [address] CBC W/Diff, Automatedon 06-0 2-2024 Absolute Lymph 3.24 X10 3/uL Normal 0.83-4.51 [facility] Comment on above: Performed By: #### L 100.0100, L300.3900, L500.2500, L501.5425 #### [facility] [address] [place], [address] Absolute Neut 8.8 X10 3/uL High 2.0-7.7 [facility] Comment on above: Performed By: #### L 100.0100, L300.3900, L500.2500, L501.5425 #### [facility] [address] [place], [address] Basophils/100 WBC (Bld) 0.5 % Normal 0-1 [facility] Comment on above: Performed By: #### L 100.0100, L300.3900, L500.2500, L501.5425 #### [facility] [address] [place], [address] Eosinophils/100 WBC (Bld) 0.5 % Normal 0-5 [facility] Comment on above: Performed By: #### L 100.0100, L300.3900, L500.2500, L501.5425 #### [facility] [address] [place], [address] Erythrocyte distribution width (RBC) [Ratio] 12.1 % Normal 11.6-14.6 [facility] Comment on above: Performed By: #### L 100.0100, L300.3900, L500.2500, L501.5425 #### [facility] [address] [place], [address] Hematocrit (Bld) [Volume fraction] 45.5 % Normal 40-54 [facility] Comment on above: Performed By: #### L 100.0100, L300.3900, L500.2500, L501.5425 #### [facility] [address] [place], [address] Hemoglobin (Bld) [Mass/Vol] 15.9 g/dL Normal 13.0-16.5 [facility] Comment on above: Performed By: #### L 100.0100, L300.3900, L500.2500, L501.5425 #### [facility] [address] [place], [address] IG% 0.500 Normal 0.0-0.9 [facility] Comment on above: Result Comment: IG% - Immature Granulocytes (promyelocytes, myelocytes and metamyelocytes) > 1% indicates that a LEFT SHIFT is Present. Performed By: #### L 100.0100, L300.3900, L500.2500, L501.5425 #### [facility] [address] [place], [address] Lymphocytes/100 WBC (Bld) 24.5 % Normal 19-41 [facility] Comment on above: Performed By: #### L 100.0100, L300.3900, L500.2500, L501.5425 #### [facility] [address] [place], [address] MCH (RBC) [Entitic mass] 32.3 pg High 27.0-32.0 [facility] Comment on above: Performed By: #### L 100.0100, L300.3900, L500.2500, L501.5425 #### [facility] [address] [place], [address] MCHC (RBC) [Mass/Vol] 34.9 g/dL Normal 32-36 [facility] Comment on above: Performed By: #### L 100.0100, L300.3900, L500.2500, L501.5425 #### [facility] [address] [place], [address] MCV (RBC) [Entitic vol] 92.3 fL Normal 80-94 [facility] Comment on above: Performed By: #### L 100.0100, L300.3900, L500.2500, L501.5425 #### [facility] [address] [place], [address] Monocytes/100 WBC (Bld) 7.3 % Normal 0-10 [facility] Comment on above: Performed By: #### L 100.0100, L300.3900, L500.2500, L501.5425 #### [facility] [address] [place], [address] Neutrophils/100 WBC (Bld) 66.7 % Normal 47-70 [facility] Comment on above: Performed By: #### L 100.0100, L300.3900, L500.2500, L501.5425 #### [facility] [address] [place], [address] Nucleated RBC (Bld) [#/Vol] 0 10*3/uL Normal 0-5 [facility] Comment on above: Performed By: #### L 100.0100, L300.3900, L500.2500, L501.5425 #### [facility] [address] [place], [address] Platelet mean volume (Bld) [Entitic vol] 9.7 fL Normal 6.2-12.0 [facility] Comment on above: Performed By: #### L 100.0100, L300.3900, L500.2500, L501.5425 #### [facility] [address] [place], [address] Platelets (Bld) [#/Vol] 296 10*3/uL Normal 150-450 [facility] Comment on above: Performed By: #### L 100.0100, L300.3900, L500.2500, L501.5425 #### [facility] [address] [place], [address] RBC (Bld) [#/Vol] 4.93 10*6/uL Normal 4.6-6.2 [facility] Comment on above: Performed By: #### L 100.0100, L300.3900, L500.2500, L501.5425 #### [facility] [address] [place], [address] RDW SD 41.1 fl Normal 35.1-43.9 [facility] Comment on above: Performed By: #### L 100.0100, L300.3900, L500.2500, L501.5425 #### [facility] [address] [place], [address] WBC (Bld) [#/Vol] 13.2 10*3/uL High 4.4-11.0 [facility] Comment on above: Performed By: #### L 100.0100, L300.3900, L500.2500, L501.5425 #### [facility] [address] [place], [address] Chest 1 View (Portable)on Chest 1 View (Portable) [facility] Imaging Services [address] [place] [address] Chest 1 View (Portable) MR#: [id number] Acct: [id number] Name: BRONSON WELLER Rep #: [id number] : 1965 M 58 From: Javon Mcfarlane PCP: Dr. Lobito Maldonado MD Status: [facility] ER Study: Chest 1 View (Portable) Date of Exam: 02/25/24 Exam# [id number] Ordering Dr: Alejandro Gandhi MD [id number] INDICATION: CHEST PAIN EXAMINATION/TECHNIQUE: X-RAY - XR Chest 1 View COMPARISON: Prior study dated: 04/30/2023 FINDINGS: LINES/DEVICES: None. LUNGS: No consolidation, edema or effusion. No pneumothorax. MEDIASTINUM AND CARDIOVASCULAR STRUCTURES: Cardiac silhouette not enlarged. Central airways and mediastinal contour are unremarkable. BONES AND SOFT TISSUES: Unremarkable. RAD/Chest 1 View (Portable) IMPRESSION: No radiographic evidence of acute cardiopulmonary disease. Electronically Signed: Javon Price MD at 11:59 EDT , CC: Dr. Alejandro Gandhi MD; Dr. Lobito Maldonado MD Top Bottom Attaching Machine Operator: Signed Normal [facility] Emergency Department Summary on 02-25-2024 Emergency Department Summary [facility] Medical Records Department [address] [place] [address] Emergency Department Summary 02/25/24 MR#: [id number] Acct: [id number] Name: BRONSON WELLER Rep #: [id number] : 1965 58 From: Alejandro Gandhi MD PCP: Dr. Lobito Maldonado MD Status:REG ER Location: ED HPI History of Present Illness Chief Complaint: Chest Pain Narrative Narrative: 58-year-old male past medical history of hypertension, recurrent pancreatitis, GERD, presents via EMS with epigastric/chest pain that began at 10 PM. This was last evening when he started having symptoms again. However, he states it feels little different than his recurrent pancreatitis. He vomited last night at 10 PM, then again this morning. No blood in his emesis. No exacerbating or alleviating factors. [facility] Medical History Liver fibrosis Myocardial infarct Stroke/cerebrovascular accident Alcohol abuse Vision loss of right eye Vision loss of left eye Cancer Neck pain PSA elevation GI bleed TIA (transient ischemic attack) Diabetes Family history of cerebral aneurysm Polyneuropathy Gastric ulcer GERD (gastroesophageal reflux disease) Former tobacco use Constipation Glaucoma Seizure disorder Hyperlipidemia PTSD (post-traumatic stress disorder) Anxiety and depression Essential (primary) hypertension Home Medications ???Medication ???Instructions ???Recorded ???Last Taken ???Type amitriptyline 25 mg tablet 25 mg PO QHS depression 07/03/18 01/06/24 History cholecalciferol (vitamin D3) 125 1 cap PO DAILY supplement 11/09/18 01/06/24 History mcg (5,000 unit) capsule hydrochlorothiazide 25 mg tablet 25 mg PO DAILY blood 06/05/20 01/06/24 Rx pressure/heart #30 tabs gabapentin 300 mg capsule 300 mg PO BID nerve pain 10/06/20 01/06/24 History metformin 500 mg tablet 500 mg PO BID diabetes #0 tabs 03/04/22 01/06/24 Rx aspirin 81 mg tablet,delayed 81 mg PO DAILY heart health 07/04/22 01/06/24 History release escitalopram oxalate 10 mg tablet 10 mg PO DAILY depression 07/04/22 01/06/24 History losartan 25 mg tablet 25 mg PO DAILY blood pressure 07/04/22 01/06/24 History amlodipine 10 mg tablet 10 mg PO DAILY blood pressure #90 06/26/23 01/06/24 Rx tabs diphenhydramine HCl 25 mg capsule 25 mg PO TID PRN allergy symptoms 10/10/23 Unknown Rx (Benadryl) #30 caps levocarnitine 330 mg tablet 660 mg (2 x 330 mg) PO BID #120 10/24/23 Unknown Rx tabs ondansetron 4 mg disintegrating 4 mg PO TID PRN nausea and 01/07/24 Unknown Rx tablet vomiting #21 tabs diphenhydramine HCl 25 mg capsule 25 mg PO TID PRN itching #20 caps 01/08/24 Unknown Rx (Benadryl) oxycodone 5 mg capsule 5 mg PO Q6H PRN pain 5 days #20 01/08/24 Unknown Rx caps pantoprazole 40 mg tablet,delayed 40 mg PO DAILY #30 tabs 01/08/24 Unknown Rx release (Protonix) tamsulosin 0.4 mg capsule 0.4 mg PO DAILY@1730 30 days #30 01/08/24 Unknown Rx caps ursodiol 250 mg tablet 250 mg PO BID #180 TABLETS 01/29/24 Unknown Rx lgmwgi-surflmem-ytcfqwq 2 cap PO .COMPLEX #300 caps 02/08/24 Unknown Rx 12,000-38,000-60,000 unit capsule,delayed rel (Creon) oxycodone 5 mg tablet 5 mg PO Q6H PRN pain 3 days #12 02/08/24 Unknown Rx tabs empagliflozin 10 mg tablet 10 mg PO DAILY 02/25/24 Unknown History (Jardiance) insulin glargine 100 unit/mL (3 10 unit subcut QHS 02/25/24 Unknown History mL) subcutaneous pen (Lantus Solostar U-100 Insulin) latanoprost 0.005 % eye drops 1 drp ophthalmic (eye) QHS 02/25/24 Unknown History levetiracetam 500 mg tablet 500 mg PO BID 02/25/24 Unknown History loratadine 10 mg tablet 10 mg PO DAILY 02/25/24 Unknown History magnesium oxide 400 mg (241.3 mg 400 mg PO BID 02/25/24 Unknown History magnesium) tablet ondansetron 4 mg disintegrating 4 mg PO Q8H PRN PRN Nausea #20 tabs 02/25/24 Unknown Rx tablet pravastatin 20 mg tablet 20 mg PO DAILY 02/25/24 Unknown History Allergy/AdvReac Type Severity Reaction Status Date / Time Iodinated Contrast Media Allergy Mild Rash Verified 02/25/24 11:06 hydromorphone (From Dilaudid) Allergy Itching Verified 02/25/24 11:06 lisinopril Allergy Angioedema Verified 02/25/24 11:06 cyclobenzaprine AdvReac Severe Skin Verified 02/25/24 11:06 crawling hydrocodone bitartrate (From AdvReac Itching Verified 02/25/24 11:06 Vicodin) morphine AdvReac Itching Verified 02/25/24 11:06 tramadol AdvReac Itching Verified 02/25/24 11:06 Family History Mother Heart disease Sister Cerebral aneurysm Father Diabetes Kidney disease Anxiety and depression Surgical History History of cholecystectomy (12/2013) History of left heart rick (more content not included)... Normal [facility] L501.4020on 02-25-2024 TROPONIN-I HS 8 pg/mL Normal 3.0-78.0 [facility] Comment on above: Result Comment: Plea se Note: New Test Units and Gender Specific Reference Ranges. For more information see Policy Stat Procedure [place] High Sensitivity Troponin (TNIH) and attachments. Performed By: #### L 501.080 #### [facility] [address] [place], [address] L501.5425on 02-25-2024 TROPONIN-I HS 8 pg/mL Normal 3.0-78.0 [facility] Comment on above: Order Comment: 1 Y Result Comment: Plea se Note: New Test Units and Gender Specific Reference Ranges. For more information see Policy Stat Procedure [place] High Sensitivity Troponin (TNIH) and attachments. Performed By: #### L 100.0100, L300.3900, L500.2500, L501.5425 #### [facility] [address] [place], [address] Lipaseon 02-25-2024 Lipase [Catalytic activity/Vol] 19 U/L Normal 13-75 [facility] Comment on above: Result Comment: Plea se note: LIPASE revised reference range effective 23. New Lipase methodology. Expected to produce lower values than the previous assay method. NEW Reference Range: 13 - 75 U/L Performed By: #### L 100.0100, L300.3900, L500.2500, L501.5425 #### [facility] [address] [place], [address] Prothrombin Time w/INRon INR Coag (PPP) [Relative time] 0.9 {INR} Normal [facility] Comment on above: Performed By: #### L 100.0100, L300.3900, L500.2500, L501.5425 #### [facility] [address] [place], [address] PT Coag (PPP) [Time] 12.1 s Normal 11.7-14.9 [facility] Comment on above: Performed By: #### L 100.0100, L300.3900, L500.2500, L501.5425 #### [facility] [address] [place], [place], [address] ECHOon 02-23-2024 Echocardiography Echocardiography Rep ort: Transthoracic Echo [facility] Date of service: 02/23/2024 3:28:13 PM PACKER Ordering physician: ALIS CHUA Indication: Shortness of Breath Technologist: Davina Silvestre RD Interpreting physician: Placido Muhammad MD PATIENT: Name: MR. BRONSON WELLER : 1965 Age: 58 years Gender: M History of hypertension, diabetes mellitus, dyslipidemia and coronary artery disease. Primary rhythm: sinus. Height: 177.80 cm BSA: 1.99 m Weight: 79.83 kg BMI: 25.3 kg/m Heart rate 97 bpm Blood pressure 110/70 mmHg Color Doppler was utilized to interrogate the cardiac valves assessed and spectral Doppler was utilized to determine the flow velocities and pressure gradients reported in this exam. MEASUREMENTS: Value Indexed Normal Max aortic dimension 3.1 cm Ao < 3.8 Left atrial volume 20 ml (4ch A-L) 10 ml/m Oscar <= 34 LV ID (diastole) 3.9 cm (2D) 1.99 cm/m LV ID (systole) 2.3 cm (2D) 1.16 cm/m IVS, leaflet tips 0.9 cm (2D) Posterior wall thickness 1.1 cm (2D) Left ventricular mass 124 g (2D) 63 g/m LV stroke volume 45 ml (2D biplane) LV end diastolic volume 76 ml (2D biplane) 38.1 ml/m 34<=EDVi<75 LV end systolic volume 31 ml (2D biplane) 15.6 ml/m Ejection Fraction 59 % (2D biplane) EF > 52 FINDINGS: LEFT VENTRICLE The left ventricle is normal in size. Left ventricular systolic function is normal. Grade I left ventricular diastolic dysfunction. Mitral annular lateral E/e': 5.8. Mitral annular septal E/e': 5.8. Wall Motion: All scored segments are normal. RIGHT VENTRICLE The right ventricle is normal in size. Right ventricular systolic function is normal. RV systolic tissue Doppler velocity is 14.0 cm/s. Estimated right atrial pressure is 3 mmHg (although IVC not seen). LEFT ATRIUM The left atrial cavity is normal in size. RIGHT ATRIUM The right atrial cavity is normal in size. Inferior Vena Cava: The inferior vena cava appears normal measuring 1.4 cm. MITRAL VALVE The mitral valve leaflets are structurally normal. There is no mitral valve regurgitation. The pressure half time is 57 msec. The peak mitral E/A ratio is 0.87. The average mitral E/e' ratio is 5.8. The mitral flow deceleration time is 197 msec. TRICUSPID VALVE The tricuspid valve leaflets are structurally normal. There is no tricuspid valve regurgitation. AORTIC VALVE The aortic valve cusps are structurally normal. There is no aortic valve regurgitation. Tricuspid aortic valve. The peak gradient is 6 mmHg (peak velocity = 120.2 cm/s). PULMONIC VALVE The pulmonic valve cusps are structurally normal. There is no pulmonic valve regurgitation. AORTA The visualized aorta is normal in size. Measurements - Mid ascending aorta 3.1 cm. PERICARDIUM There is no pericardial effusion. There is an epicardial fat pad. CONCLUSIONS: - Exam indication: Shortness of Breath - The left ventricle is normal in size. Left ventricular systolic function is normal. EF = 59 5% (2D biplane) Grade I left ventricular diastolic dysfunction. - The right ventricle is normal in size. Right ventricular systolic function is normal. - There are no significant valvular abnormalities. - The patient has not had a prior CC echocardiographic exam for comparison. * * * Final * * * [facility] : [id number] Normal [facility] XR Chest PA and Lateralon IMPRESSION: No acute radiographic abnormality. Top Bottom Attaching Machine Operator: JACQUE Transcribe Date/Time: Feb 06 2024 2:40P Dictated by : GEOFFREY CARROLL MD This examination was interpreted and the report reviewed and electronically signed by: GEOFFREY CARROLL MD on Feb 06 2024 2:40PM [facility] DIVISION OF RADIOLOGY * * *Final Report* * * DATE OF EXAM: Feb 05 2024 2:56PM WOX 5291 - XR CHEST 2V FRONTAL/LAT / PROCEDURE REASON: Shortness of breath * * * * Physician Interpretation * * * * EXAMINATION: CHEST RADIOGRAPH (2 VIEW FRONTAL & LATERAL) CLINICAL HISTORY: Shortness of breath MQ: XC2_6 EXAM DATE/TIME: 02/05/2024 2:56 PM COMPARISON: Chest x-ray on 06/05/2023 RESULT: Lines, tubes, and devices: None. Lungs and pleura: No consolidation. No lung mass. No pleural effusion. No pneumothorax. Cardiomediastinal silhouette: Normal cardiomediastinal silhouette. Bones and soft tissues: Unremarkable. DIVISION OF RADIOLOGY Provider, [facility] - 02/06/2024 * * *Final Report* * * DATE OF EXAM: Feb 05 2024 2:56PM WOX 5291 - XR CHEST 2V FRONTAL/LAT / PROCEDURE REASON: Shortness of breath * * * * Physician Interpretation * * * * EXAMINATION: CHEST RADIOGRAPH (2 VIEW FRONTAL & LATERAL) CLINICAL HISTORY: Shortness of breath MQ: XC2_6 EXAM DATE/TIME: 02/05/2024 2:56 PM COMPARISON: Chest x-ray on 06/05/2023 RESULT: Lines, tubes, and devices: None. Lungs and pleura: No consolidation. No lung mass. No pleural effusion. No pneumothorax. Cardiomediastinal silhouette: Normal cardiomediastinal silhouette. Bones and soft tissues: Unremarkable. IMPRESSION IMPRESSION: No acute radiographic abnormality. Top Bottom Attaching Machine Operator: PSCB Transcribe Date/Time: Feb 06 2024 2:40P Dictated by : GEOFFREY CARROLL MD This examination was interpreted and the report reviewed and electronically signed by: GEOFFREY CARROLL MD on Feb 06 2024 2:40PM EST [facility] XR Chest PA and LateralOrder ed By: [facility] Provider on 02-06-2024 [facility] CBC W Auto Differential pane l (Bld)on 02-05-2024 Basophils (Bld) [#/Vol] 0.05 10*3/uL [facility] Basophils/100 WBC (Bld) 0.4 % C [facility] Differential cell count method Nom (Bld) Auto [facility] Eosinophils (Bld) [#/Vol] 0.06 10*3/uL [facility] Eosinophils/100 WBC (Bld) 0.5 % [facility] Erythrocyte distribution width (RBC) [Ratio] 12.2 % 11.5 - 15.0 % [facility] Hematocrit (Bld) [Volume fraction] 42.3 % 39.0 - 51.0 % [facility] Hemoglobin (Bld) [Mass/Vol] 14.2 g/dL 13.0 - 17.0 g/dL [facility] Immature granulocytes (Bld) [#/Vol] 0.06 10*3/uL [facility] Immature granulocytes/100 WBC (Bld) 0.5 % [facility] Interpretation and review of laboratory results Abnormal [facility] Lymphocytes (Bld) [#/Vol] 2.49 10*3/uL [facility] Lymphocytes/100 WBC (Bld) 20.4 % [facility] MCH (RBC) [Entitic mass] 31.4 pg 26. 0 - 34.0 pg [facility] MCHC (RBC) [Mass/Vol] 33.6 g/dL 30.5 - 36.0 g/dL [facility] MCV (RBC) [Entitic vol] 93.6 fL 80.0 - 100.0 fL [facility] Monocytes (Bld) [#/Vol] 1.07 10*3/uL High [facility] Monocytes/100 WBC (Bld) 8.7 % C [facility] Neutrophils (Bld) [#/Vol] 8.50 10*3/uL High [facility] Neutrophils/100 WBC (Bld) 69.5 % [facility] Nucleated RBC (Bld) [#/Vol] [facility] Nucleated RBC/100 WBC (Bld) [Ratio] 0.0 % /100 WBC [facility] Platelet mean volume (Bld) [Entitic vol] 10.3 fL 9.0 - 12.7 fL [facility] Platelets (Bld) [#/Vol] 210 10*3/uL [facility] RBC (Bld) [#/Vol] 4.52 10*6/uL 4.20 - 6.00 m/uL [facility] WBC (Bld) [#/Vol] 12.23 10*3/uL High [facility] XR Chest PA and Lateralon Radiology Study observation (narrative) [facility] OCT OPTIC NERVE CIRRUS OU (B OTH EYES)on 01-16-2024 [facility] Radiology Study observation (narrative) [facility] VISUAL FIELD 24-2 OU (BOTH E YES)on 01-16-2024 [facility] Radiology Study observation (narrative) [facility] Absolute lymphocyte countOrd ered By: Daiana Banda on 01-08-2024 Lymphocytes Auto (Unsp spec) [#/Vol] 1.77 10*3/uL 0.83-4.51 [facility] Automated lymphocyte count a s percentage of total leukocytesOrdered By: Daiana Banda on 01-08-2024 Lymphocytes/100 WBC Auto (Unsp spec) 14.6 % 19-41 [facility] Basophil percentageOrdered B y: Daiana Banda on 01-08-2024 Basophils/100 WBC (Bld) 0.1 % 0-1 [facility] Bilirubin [Mass/Vol] 0.90 mg/dL 0.20-1.00 [facility] Comment on above: For patients on eltr ombopag therapy, use of Dimension [place] TBIL is not recommended. Chloride [Moles/Vol] 105 mmol/L 98-107 [facility] Eosinophils/100 WBC (Bld) 0.0 % 0-5 [facility] Glucose [Mass/Vol] 183 mg/dL 74-106 [facility] Comment on above: Fasting Glucose resu lt greater than or equal to 126 mg/dL suggests DIABETES MELLITUS per A.D.A. criteria. Hemoglobin (Bld) [Mass/Vol] 12.4 g/dL 13.0-16.5 [facility] Monocytes/100 WBC (Bld) 8.0 % 0-10 [facility] Neutrophils (Bld) [#/Vol] 9.3 10*3/uL 2.0-7.7 [facility] Neutrophils/100 WBC (Bld) 76.7 % 47-70 [facility] Potassium [Moles/Vol] 4.2 mmol/L 3.5-5.1 [facility] Protein [Mass/Vol] 7.3 g/dL 6.4-8.2 [facility] Sodium [Moles/Vol] 136 mmol/L 136-145 [facility] WBC (Bld) [#/Vol] 12.1 10*3/uL 4.4-11.0 [facility] Determination of erythrocyte mean corpuscular volume (MCV)Ordered By: Daiana Banda on 01-08-2024 MCV (RBC) [Entitic vol] 91.9 fL 80-94 [facility] Erythrocyte distribution wid th ratioOrdered By: Daiana Banda on 01-08-2024 Erythrocyte distribution width (RBC) [Ratio] 12.0 % 11.6-14.6 [facility] Erythrocyte distribution wid th standard deviationOrdered By: Daiana Banda on 01-08-2024 Erythrocyte distribution width (RBC) [Entitic vol] 40.5 fL 35.1-43.9 [facility] Hematocrit Auto (Bld) [Volum e fraction]Ordered By: Daiana Banda on 01-08-2024 Hematocrit (Bld) [Volume fraction] 36.2 % 40-54 [facility] Immature granulocytes/100 WB C Auto (Bld)Ordered By: Daiana Banda on 01-08-2024 Immature granulocytes/100 WBC (Bld) 0.600 % 0.0-0.9 [facility] Comment on above: IG% - Immature Granu locytes (promyelocytes, myelocytes and metamyelocytes) > 1% indicates that a LEFT SHIFT is Present. LABORATORYOrdered By: SYSTEM SYSTEM on 01-08-2024 Lipase [Catalytic activity/Vol] U/L 1 High 16 - 77 U/L AO ADM SS LIPon 01-08-2024 Lipase Level >375 High 16-77 [facility] Comment on above: Performed By: #### L #### [place] [address] Laboratory - Chemistry and C hemistry - challengeOrdered By: Daiana Banda on 01-08-2024 Albumin/Globulin [Mass ratio] 1.3 {ratio} 0.9-2.4 [facility] ALP [Catalytic activity/Vol] 61 U/L 45-117 [facility] ALT [Catalytic activity/Vol] 18 U/L 16-61 [facility] CO2 [Moles/Vol] 24.0 mmol/L 21.0-32.0 [facility] Globulin (S) [Mass/Vol] 3.2 g/dL 2.2-4.2 [facility] Urea nitrogen/Creatinine [Mass ratio] 12.4 mg/mg 10-20 [facility] - Hematology and Cell countsOrdered By: Daiana Banda on 01-08-2024 MCH (RBC) [Entitic mass] 31.5 pg 27.0-32.0 [facility] MCHC (RBC) [Mass/Vol] 34.3 g/dL 32-36 [facility] Nucleated RBC/100 WBC (Bld) [Ratio] 0 % 0-5 [facility] Platelet mean volume (Bld) [Entitic vol] 9.9 fL 6.2-12.0 [facility] Platelets (Bld) [#/Vol] 161 10*3/uL 150-450 [facility] No Panel InformationOrdered By: Daiana Banda on 01-08-2024 Estimated Creatinine Clearance Calc 103.92 ml/min [facility] Estimated GFR (MDRD) Amer 126 mL/min >60 [facility] Comment on above: GFR Calc Estimated GFR (MDRD) Non-Af Amer 105 mL/min >60 [facility] Comment on above: Non- GFR Calc RBC Auto (Bld) [#/Vol]Ordere d By: Daiana Banda on 01-08-2024 RBC (Bld) [#/Vol] 3.94 10*6/uL 4.6-6.2 [facility] Serum or plasma calcium mc urement (mass/volume)Ordered By: Daiana Banda on 01-08-2024 Calcium [Mass/Vol] 8.7 mg/dL 8.5-10.1 [facility] Serum or plasma creatinine m easurement (mass/volume)Ordered By: Daiana Banda on 01-08-2024 Creatinine [Mass/Vol] 0.80 mg/dL 0.70-1.30 [facility] Comment on above: The validity of the calculated GFR & GFRAA in patients over 70 years has not been determined. Clinical correlation is essential. Serum or plasma urea nitroge n measurement (mass/volume)Ordered By: Daiana Banda on 01-08-2024 Urea nitrogen [Mass/Vol] 10 mg/dL 7-18 [facility] Thin prep Papanicolaou smear with manual screeningOrdered By: Mg Patel on 01-08-2024 Thin prep Papanicolaou smear with manual screening 207 mg/dL 74-106 [facility] Comment on above: MANAGEMENT OF PATIEN T CARE PER NURSING PROTOCOL Thin prep Papanicolaou smear with manual screeningOrdered By: Daiana Banda on 01-08-2024 Thin prep Papanicolaou smear with manual screening 4.1 g/dL 3.2-5.0 [facility] Thin prep Papanicolaou smear with manual screening 22 U/L 15-37 [facility] Thin prep Papanicolaou smear with manual screening 7 -15 [facility] Absolute lymphocyte countOrd ered By: Phillip Aguiar on 01-07-2024 Lymphocytes Auto (Unsp spec) [#/Vol] 3.77 10*3/uL 0.83-4.51 [facility] Automated lymphocyte count a s percentage of total leukocytesOrdered By: Phillip Aguiar on 01-07-2024 Lymphocytes/100 WBC Auto (Unsp spec) 24.4 % 19-41 [facility] Basophil percentageOrdered B y: Phillip Aguiar on 01-07-2024 Basophils/100 WBC (Bld) 0.3 % 0-1 [facility] Bilirubin [Mass/Vol] 0.50 mg/dL 0.20-1.00 [facility] Comment on above: For patients on eltr ombopag therapy, use of Dimension [place] TBIL is not recommended. Chloride [Moles/Vol] 93 mmol/L 98-107 [facility] Eosinophils/100 WBC (Bld) 1.4 % 0-5 [facility] Glucose [Mass/Vol] 262 mg/dL 74-106 [facility] Comment on above: Glucose result great er than or equal to 200 mg/dLsuggests DIABETES MELLITUS per A.D.A. criteria. Hemoglobin (Bld) [Mass/Vol] 13.5 g/dL 13.0-16.5 [facility] Monocytes/100 WBC (Bld) 5.2 % 0-10 [facility] Neutrophils (Bld) [#/Vol] 10.6 10*3/uL 2.0-7.7 [facility] Neutrophils/100 WBC (Bld) 68.3 % 47-70 [facility] Potassium [Moles/Vol] 3.2 mmol/L 3.5-5.1 [facility] Protein [Mass/Vol] 7.5 g/dL 6.4-8.2 [facility] Sodium [Moles/Vol] 127 mmol/L 136-145 [facility] WBC (Bld) [#/Vol] 15.5 10*3/uL 4.4-11.0 [facility] Determination of erythrocyte mean corpuscular volume (MCV)Ordered By: Phillip Aguiar on 01-07-2024 MCV (RBC) [Entitic vol] 91.0 fL 80-94 [facility] Direct bilirubinOrdered By: Phillip Aguiar on 01-07-2024 Bilirubin.direct [Mass/Vol] 0.15 mg/dL 0.00-0.30 [facility] Erythrocyte distribution wid th ratioOrdered By: Phillip Aguiar on 01-07-2024 Erythrocyte distribution width (RBC) [Ratio] 11.9 % 11.6-14.6 [facility] Erythrocyte distribution wid th standard deviationOrdered By: Phillip Aguiar on 01-07-2024 Erythrocyte distribution width (RBC) [Entitic vol] 39.8 fL 35.1-43.9 [facility] Hematocrit Auto (Bld) [Volum e fraction]Ordered By: Phillip Aguiar on 01-07-2024 Hematocrit (Bld) [Volume fraction] 38.6 % 40-54 [facility] Immature granulocytes/100 WB C Auto (Bld)Ordered By: Phillip Aguiar on 01-07-2024 Immature granulocytes/100 WBC (Bld) 0.400 % 0.0-0.9 [facility] Comment on above: IG% - Immature Granu locytes (promyelocytes, myelocytes and metamyelocytes) > 1% indicates that a LEFT SHIFT is Present. Laboratory - Chemistry and C hemistry - challengeOrdered By: Phillip Aguiar on 01-07-2024 ALP [Catalytic activity/Vol] 63 U/L 45-117 [facility] ALT [Catalytic activity/Vol] 19 U/L 16-61 [facility] CO2 [Moles/Vol] 19.0 mmol/L 21.0-32.0 [facility] Globulin (S) [Mass/Vol] 3.5 g/dL 2.2-4.2 [facility] Urea nitrogen/Creatinine [Mass ratio] 11.0 mg/mg 10-20 [facility] Laboratory - Hematology and Cell countsOrdered By: Phillip Aguiar on 01-07-2024 MCH (RBC) [Entitic mass] 31.8 pg 27.0-32.0 [facility] MCHC (RBC) [Mass/Vol] 35.0 g/dL 32-36 [facility] Nucleated RBC/100 WBC (Bld) [Ratio] 0 % 0-5 [facility] Platelet mean volume (Bld) [Entitic vol] 9.3 fL 6.2-12.0 [facility] Platelets (Bld) [#/Vol] 191 10*3/uL 150-450 [facility] No Panel InformationOrdered By: Phillip Aguiar on 01-07-2024 Estimated Creatinine Clearance Calc 74.18 ml/min [facility] Estimated GFR (MDRD) Amer 81 mL/min >60 [facility] Comment on above: GFR Calc Estimated GFR (MDRD) Non-Af Amer 67 mL/min >60 [facility] Comment on above: Non- GFR Calc Ethyl Alcohol Level 240.0 mg/dL [facility] Comment on above: The serum:whole bloo d ethanol ratio is approximately 1.14and varies slightly with hematocrit. Medical Alcohol reference interval and critical value innon-tolerant individuals; 50 - 100 Impairment 100 Intoxication 100 - 250 Severe Poisoning 250 - 400 Deep/possible fatal coma Lipase See comment 13-75 [facility] Comment on above: SAID SHE WOULD CONSU LT WITH DOCTORPrevious reported result: TNP U/LEdited by: EVIE on 01/07/24:0712 AMENDED REPORT 01/07/24 0712 LIPASE previously reported as: Test not performed U/L SAID SHE WOULD CONSULT WITH DOCTORPlease note:LIPASE revised reference range effective 23. New Lipase methodology. Expected to produce lower values than the previous assay method. NEW Reference Range: 13 - 75 U/L Lipase TNP [facility] Comment on above: Test not performedSA ID SHE WOULD CONSULT WITH DOCTORSpecimen sent to Alden Menezes.Previous reported result: TNP U/LEdited by: EVIE on 01/07/24:0712 AMENDED REPORT 01/07/24 0712 LIPASE previously reported as: Test not performed U/L SAID SHE WOULD CONSULT WITH DOCTORPrevious reported result: U/LEdited by: NIALL on 01/08/24:1307 AMENDED REPORT 01/08/24 1307 LIPASE previously reported as: U/L SAID SHE WOULD CONSULT WITH DOCTORPlease note:LIPASE revised reference range effective 23. New Lipase methodology. Expected to produce lower values than the previous assay method. NEW Reference Range: 13 - 75 U/L RBC Auto (Bld) [#/Vol]Ordere d By: Phillip Aguiar on 01-07-2024 RBC (Bld) [#/Vol] 4.24 10*6/uL 4.6-6.2 [facility] Serum or plasma calcium mc urement (mass/volume)Ordered By: Phillip Aguiar on 01-07-2024 Calcium [Mass/Vol] 8.9 mg/dL 8.5-10.1 [facility] Serum or plasma creatinine m easurement (mass/volume)Ordered By: Phillip Aguiar on 01-07-2024 Creatinine [Mass/Vol] 1.18 mg/dL 0.70-1.30 [facility] Comment on above: The validity of the calculated GFR & GFRAA in patients over 70 years has not been determined. Clinical correlation is essential. Serum or plasma urea nitroge n measurement (mass/volume)Ordered By: Phillip Aguiar on 01-07-2024 Urea nitrogen [Mass/Vol] 13 mg/dL 7-18 [facility] Thin prep Papanicolaou smear with manual screeningOrdered By: Phillip Aguiar on 01-07-2024 Thin prep Papanicolaou smear with manual screening 4.0 g/dL 3.2-5.0 [facility] Thin prep Papanicolaou smear with manual screening 18 U/L 15-37 [facility] Thin prep Papanicolaou smear with manual screening 15 5-15 [facility] Basophil percentageOrdered B y: Antony Burnett on 12-22-2023 Ammonia (P) [Moles/Vol] 30.0 umol/L 11-32 [facility] No Panel InformationOrdered By: Antony Burnett on 12-22-2023 Levetiracetam (Keppra) Level 24.1 ug/mL 10.0-40.0 [facility] Comment on above: Performed at: [address] [id number] Director: Fam Talbert MD, Phone: [phone] Absolute lymphocyte countOrd ered By: Noelle Lynne on 11-20-2023 Lymphocytes Auto (Unsp spec) [#/Vol] 2.05 10*3/uL 0.83-4.51 [facility] Automated lymphocyte count a s percentage of total leukocytesOrdered By: Noelle Lynne on 11-20-2023 Lymphocytes/100 WBC Auto (Unsp spec) 21.0 % 19-41 [facility] Basophil percentageOrdered B y: Noelle Lynne on 11-20-2023 Basophil percentage 0-5 SEEN /hpf 0-5 [facility] Basophils/100 WBC (Bld) 0.5 % 0-1 [facility] Bilirubin [Mass/Vol] 1.20 mg/dL 0.20-1.00 [facility] Comment on above: For patients on eltr ombopag therapy, use of Dimension [place] TBIL is not recommended. Chloride [Moles/Vol] 101 mmol/L 98-107 [facility] Eosinophils/100 WBC (Bld) 0.5 % 0-5 [facility] Glucose [Mass/Vol] 275 mg/dL 74-106 [facility] Comment on above: Glucose result great er than or equal to 200 mg/dLsuggests DIABETES MELLITUS per A.D.A. criteria. Hemoglobin (Bld) [Mass/Vol] 14.2 g/dL 13.0-16.5 [facility] Monocytes/100 WBC (Bld) 6.3 % 0-10 [facility] Neutrophils (Bld) [#/Vol] 6.9 10*3/uL 2.0-7.7 [facility] Neutrophils/100 WBC (Bld) 71.2 % 47-70 [facility] Potassium [Moles/Vol] 3.9 mmol/L 3.5-5.1 [facility] Protein [Mass/Vol] 8.0 g/dL 6.4-8.2 [facility] Sodium [Moles/Vol] 134 mmol/L 136-145 [facility] WBC (Bld) [#/Vol] 9.8 10*3/uL 4.4-11.0 [facility] Bilirubin Test strip Ql (U)O rdered By: Noelle Lynne on 11-20-2023 Bilirubin Ql (U) Negative Negative [facility] Determination of erythrocyte mean corpuscular volume (MCV)Ordered By: Noelle Lynne on 11-20-2023 MCV (RBC) [Entitic vol] 91.1 fL 80-94 [facility] Erythrocyte distribution wid th ratioOrdered By: Noelle Lynne on 11-20-2023 Erythrocyte distribution width (RBC) [Ratio] 12.5 % 11.6-14.6 [facility] Erythrocyte distribution wid th standard deviationOrdered By: Noelle Lynne on 11-20-2023 Erythrocyte distribution width (RBC) [Entitic vol] 41.2 fL 35.1-43.9 [facility] Hematocrit Auto (Bld) [Volum e fraction]Ordered By: Noelle Lynne on 11-20-2023 Hematocrit (Bld) [Volume fraction] 41.9 % 40-54 [facility] Immature granulocytes/100 WB C Auto (Bld)Ordered By: Noelle Lynne on 11-20-2023 Immature granulocytes/100 WBC (Bld) 0.500 % 0.0-0.9 [facility] Comment on above: IG% - Immature Granu locytes (promyelocytes, myelocytes and metamyelocytes) > 1% indicates that a LEFT SHIFT is Present. Ketones Test strip Ql (U)Ord ered By: oNelle Lynne on 11-20-2023 Ketones Ql (U) 5 mg/dl Negative [facility] Laboratory - Chemistry and C hemistry - challengeOrdered By: Noelle Lynne on 11-20-2023 Albumin/Globulin [Mass ratio] 1.2 {ratio} 0.9-2.4 [facility] ALP [Catalytic activity/Vol] 73 U/L 45-117 [facility] ALT [Catalytic activity/Vol] 17 U/L 16-61 [facility] CO2 [Moles/Vol] 26.0 mmol/L 21.0-32.0 [facility] Globulin (S) [Mass/Vol] 3.7 g/dL 2.2-4.2 [facility] Lipase [Catalytic activity/Vol] 117 U/L 13-75 [facility] Comment on above: Please note:LIPASE r evised reference range effective 23. New Lipase methodology. Expected to produce lower values than the previous assay method. NEW Reference Range: 13 - 75 U/L Urea nitrogen/Creatinine [Mass ratio] 13.9 mg/mg 10-20 [facility] Laboratory - Hematology and Cell countsOrdered By: Noelle Lynne on 11-20-2023 MCH (RBC) [Entitic mass] 30.9 pg 27.0-32.0 [facility] MCHC (RBC) [Mass/Vol] 33.9 g/dL 32-36 [facility] Nucleated RBC/100 WBC (Bld) [Ratio] 0 % 0-5 [facility] Platelet mean volume (Bld) [Entitic vol] 9.4 fL 6.2-12.0 [facility] Platelets (Bld) [#/Vol] 201 10*3/uL 150-450 [facility] Mucus LM Ql (Urine sed)Order ed By: oNelle Lynne on 11-20-2023 Mucus Ql (Urine sed) 0 SEEN /hpf [facility] Nitrite Test strip Ql (U)Ord ered By: Noelle Lynne on 11-20-2023 Nitrite Ql (U) Negative Negative [facility] No Panel InformationOrdered By: Noelle Lynne on 11-20-2023 Urine RBC 0-5 SEEN /hpf 0-5 [facility] Estimated Creatinine Clearance Calc 60.69 ml/min [facility] Estimated GFR (MDRD) Amer 69 mL/min >60 [facility] Comment on above: GFR Calc Estimated GFR (MDRD) Non-Af Amer 57 mL/min >60 [facility] Comment on above: Non- GFR Calc Protein Test strip Ql (U)Ord ered By: Noelle Lynne on 11-20-2023 Protein Ql (U) 30 mg/dl Negative [facility] RBC Auto (Bld) [#/Vol]Ordere d By: Noelle Lynne on 11-20-2023 RBC (Bld) [#/Vol] 4.60 10*6/uL 4.6-6.2 [facility] Serum or plasma calcium mc urement (mass/volume)Ordered By: Noelle Lynne on 11-20-2023 Calcium [Mass/Vol] 9.5 mg/dL 8.5-10.1 [facility] Serum or plasma creatinine m easurement (mass/volume)Ordered By: Noelle Lynne on 11-20-2023 Creatinine [Mass/Vol] 1.37 mg/dL 0.70-1.30 [facility] Comment on above: The validity of the calculated GFR & GFRAA in patients over 70 years has not been determined. Clinical correlation is essential. Serum or plasma urea nitroge n measurement (mass/volume)Ordered By: Noelle Lynne on 11-20-2023 Urea nitrogen [Mass/Vol] 19 mg/dL 7-18 [facility] Squamous epithelial cells de tection in urine sediment by light microscopyOrdered By: Noelle Lynne on 11-20-2023 Epithelial cells.squamous LM Ql (Urine sed) 0-5 SEEN /hpf 0-5 [facility] Thin prep Papanicolaou smear with manual screeningOrdered By: Noelle Lynne on 11-20-2023 Thin prep Papanicolaou smear with manual screening 4.3 g/dL 3.2-5.0 [facility] Thin prep Papanicolaou smear with manual screening 14 U/L 15-37 [facility] Thin prep Papanicolaou smear with manual screening 7 5-15 [facility] Urine blood detectionOrdered By: Noelle Lynne on 11-20-2023 RBC Ql (U) 10 /ul Negative [facility] Urine clarityOrdered By: Maryann Lynne on 11-20-2023 Clarity (U) Clear Clear [facility] Urine color determinationOrd ered By: Noelle Lynne on 11-20-2023 Color (U) Yellow Yellow [facility] Urine glucose detectionOrder ed By: Noellemachelle Lynne on 11-20-2023 Glucose Ql (U) 1000 mg/dl Normal [facility] Urine leukocyte esterase det ection by dipstickOrdered By: Noellemachelle Lynne on 11-20-2023 Leukocyte esterase Test strip Ql (U) 25 /ul Negative [facility] Urine pHOrdered By: Noelle ramirez on 11-20-2023 pH (U) 6.0 [pH] 5.0 - 8.0 [facility] Urine sediment bacteria coun t by microscopy (number/high power field)Ordered By: Noelle Lynne on 11-20-2023 Bacteria LM.HPF (Urine sed) [#/Area] 0 /[HPF] None Seen [facility] Urine specific gravity measu rementOrdered By: Noelle Lynne on 11-20-2023 Specific gravity (U) [Rel density] 1.015 1.002-1.03 0 [facility] Urine urobilinogen measureme ntOrdered By: Noelle Lynne on 11-20-2023 Urobilinogen Ql (U) 1 mg/dl Normal [facility] Absolute lymphocyte countOrd ered By: Rajendra Rios on 11-07-2023 Lymphocytes Auto (Unsp spec) [#/Vol] 1.93 10*3/uL 0.83-4.51 [facility] Automated lymphocyte count a s percentage of total leukocytesOrdered By: Rajendra Rios on 11-07-2023 Lymphocytes/100 WBC Auto (Unsp spec) 20.1 % 19-41 [facility] Basophil percentageOrdered B y: Rajendra Rios on 11-07-2023 Basophils/100 WBC (Bld) 0.5 % 0-1 [facility] Bilirubin [Mass/Vol] 0.80 mg/dL 0.20-1.00 [facility] Comment on above: For patients on eltr ombopag therapy, use of Dimension [place] TBIL is not recommended. Chloride [Moles/Vol] 101 mmol/L 98-107 [facility] Eosinophils/100 WBC (Bld) 1.0 % 0-5 [facility] Glucose [Mass/Vol] 352 mg/dL 74-106 [facility] Comment on above: Glucose result great er than or equal to 200 mg/dLsuggests DIABETES MELLITUS per A.D.A. criteria. Hemoglobin (Bld) [Mass/Vol] 13.9 g/dL 13.0-16.5 [facility] Monocytes/100 WBC (Bld) 6.5 % 0-10 [facility] Neutrophils (Bld) [#/Vol] 6.9 10*3/uL 2.0-7.7 [facility] Neutrophils/100 WBC (Bld) 71.6 % 47-70 [facility] Potassium [Moles/Vol] 4.1 mmol/L 3.5-5.1 [facility] Protein [Mass/Vol] 7.8 g/dL 6.4-8.2 [facility] Sodium [Moles/Vol] 135 mmol/L 136-145 [facility] WBC (Bld) [#/Vol] 9.6 10*3/uL 4.4-11.0 [facility] Determination of erythrocyte mean corpuscular volume (MCV)Ordered By: Rajendra Rios on 11-07-2023 MCV (RBC) [Entitic vol] 90.8 fL 80-94 [facility] Erythrocyte distribution wid th ratioOrdered By: Rajendra Rios on 11-07-2023 Erythrocyte distribution width (RBC) [Ratio] 12.1 % 11.6-14.6 [facility] Erythrocyte distribution wid th standard deviationOrdered By: Rajendra Rios on 11-07-2023 Erythrocyte distribution width (RBC) [Entitic vol] 40.6 fL 35.1-43.9 [facility] Hematocrit Auto (Bld) [Volum e fraction]Ordered By: Rajendra Rios on 11-07-2023 Hematocrit (Bld) [Volume fraction] 40.3 % 40-54 [facility] Immature granulocytes/100 WB C Auto (Bld)Ordered By: Rajendra Rios on 11-07-2023 Immature granulocytes/100 WBC (Bld) 0.300 % 0.0-0.9 [facility] Comment on above: IG% - Immature Granu locytes (promyelocytes, myelocytes and metamyelocytes) > 1% indicates that a LEFT SHIFT is Present. Laboratory - Chemistry and C hemistry - challengeOrdered By: Rajendra Rios on 11-07-2023 Albumin/Globulin [Mass ratio] 1.1 {ratio} 0.9-2.4 [facility] ALP [Catalytic activity/Vol] 75 U/L 45-117 [facility] ALT [Catalytic activity/Vol] 13 U/L 16-61 [facility] CO2 [Moles/Vol] 24.0 mmol/L 21.0-32.0 [facility] Globulin (S) [Mass/Vol] 3.7 g/dL 2.2-4.2 [facility] Lipase [Catalytic activity/Vol] 167 U/L 13-75 [facility] Comment on above: Please note:LIPASE r evised reference range effective 23. New Lipase methodology. Expected to produce lower values than the previous assay method. NEW Reference Range: 13 - 75 U/L Urea nitrogen/Creatinine [Mass ratio] 15.2 mg/mg 10-20 [facility] - Hematology and Cell countsOrdered By: Rajendra Rios on 11-07-2023 MCH (RBC) [Entitic mass] 31.3 pg 27.0-32.0 [facility] MCHC (RBC) [Mass/Vol] 34.5 g/dL 32-36 [facility] Nucleated RBC/100 WBC (Bld) [Ratio] 0 % 0-5 [facility] Platelet mean volume (Bld) [Entitic vol] 9.6 fL 6.2-12.0 [facility] Platelets (Bld) [#/Vol] 173 10*3/uL 150-450 [facility] No Panel InformationOrdered By: Rajendra Rios on 11-07-2023 Estimated Creatinine Clearance Calc 62.98 ml/min [facility] Estimated GFR (MDRD) Amer 72 mL/min >60 [facility] Comment on above: GFR Calc Estimated GFR (MDRD) Non-Af Amer 59 mL/min >60 [facility] Comment on above: Non- GFR Calc RBC Auto (Bld) [#/Vol]Ordere d By: Rajendra Rios on 11-07-2023 RBC (Bld) [#/Vol] 4.44 10*6/uL 4.6-6.2 [facility] Serum or plasma calcium mc urement (mass/volume)Ordered By: Rajendra Rios on 11-07-2023 Calcium [Mass/Vol] 9.5 mg/dL 8.5-10.1 [facility] Serum or plasma creatinine m easurement (mass/volume)Ordered By: Rajendra Rios on 11-07-2023 Creatinine [Mass/Vol] 1.32 mg/dL 0.70-1.30 [facility] Comment on above: The validity of the calculated GFR & GFRAA in patients over 70 years has not been determined. Clinical correlation is essential. Serum or plasma urea nitroge n measurement (mass/volume)Ordered By: Rajendra Rios on 11-07-2023 Urea nitrogen [Mass/Vol] 20 mg/dL 7-18 [facility] Thin prep Papanicolaou smear with manual screeningOrdered By: Rajendra Rios on 11-07-2023 Thin prep Papanicolaou smear with manual screening 4.1 g/dL 3.2-5.0 [facility] Thin prep Papanicolaou smear with manual screening 9 U/L 15-37 [facility] Thin prep Papanicolaou smear with manual screening 10 5-15 [facility] Absolute lymphocyte countOrd ered By: Phillip Aguiar on 10-10-2023 Lymphocytes Auto (Unsp spec) [#/Vol] 3.30 10*3/uL 0.83-4.51 [facility] Basophil percentageOrdered B y: Phillip Aguiar on 10-10-2023 Basophils/100 WBC (Bld) 0.3 % 0-1 [facility] Bilirubin [Mass/Vol] 0.60 mg/dL 0.20-1.00 [facility] Comment on above: For patients on eltr ombopag therapy, use of Dimension [place] TBIL is not recommended. Chloride [Moles/Vol] 104 mmol/L 98-107 [facility] Eosinophils/100 WBC (Bld) 1.9 % 0-5 [facility] Glucose [Mass/Vol] 232 mg/dL 74-106 [facility] Comment on above: Glucose result great er than or equal to 200 mg/dLsuggests DIABETES MELLITUS per A.D.A. criteria. Neutrophils (Bld) [#/Vol] 7.9 10*3/uL 2.0-7.7 [facility] Neutrophils/100 WBC (Bld) 63.9 % 47-70 [facility] Potassium [Moles/Vol] 3.7 mmol/L 3.5-5.1 [facility] Protein [Mass/Vol] 8.2 g/dL 6.4-8.2 [facility] Sodium [Moles/Vol] 139 mmol/L 136-145 [facility] WBC (Bld) [#/Vol] 12.4 10*3/uL 4.4-11.0 [facility] Blood erythrocytes count (nu mber/volume)Ordered By: Phillip Aguiar on 10-10-2023 RBC (Bld) [#/Vol] 4.38 10*6/uL 4.6-6.2 [facility] Blood hemoglobin measurement (mass/volume)Ordered By: Phillip Aguiar on 10-10-2023 Hemoglobin (Bld) [Mass/Vol] 13.5 g/dL 13.0-16.5 [facility] Blood lymphocytes/100 leukoc ytesOrdered By: Phillip Aguiar on 10-10-2023 Lymphocytes/100 WBC (Bld) 26.7 % 19-41 [facility] Blood monocytes/100 leukocyt esOrdered By: Phillip Aguiar on 10-10-2023 Monocytes/100 WBC (Bld) 6.9 % 0-10 [facility] Blood platelet mean volumeOr dered By: Phillip Aguiar on 10-10-2023 Platelet mean volume (Bld) [Entitic vol] 10.1 fL 6.2-12.0 [facility] Determination of erythrocyte mean corpuscular volume (MCV)Ordered By: Phillip Aguiar on 10-10-2023 MCV (RBC) [Entitic vol] 92.2 fL 80-94 [facility] Direct bilirubinOrdered By: Phillip Aguiar on 10-10-2023 Bilirubin.direct [Mass/Vol] 0.18 mg/dL 0.00-0.30 [facility] Hematocrit Auto (Bld) [Volum e fraction]Ordered By: Phillip Aguiar on 10-10-2023 Hematocrit (Bld) [Volume fraction] 40.4 % 40-54 [facility] - Chemistry and C hemistry - challengeOrdered By: Phillip Aguiar on 10-10-2023 ALP [Catalytic activity/Vol] 80 U/L 45-117 [facility] ALT [Catalytic activity/Vol] 19 U/L 16-61 [facility] CO2 [Moles/Vol] 26.0 mmol/L 21.0-32.0 [facility] Globulin (S) [Mass/Vol] 3.8 g/dL 2.2-4.2 [facility] Lipase [Catalytic activity/Vol] 71 U/L 13-75 [facility] Comment on above: Please note:LIPASE r evised reference range effective 23. New Lipase methodology. Expected to produce lower values than the previous assay method. NEW Reference Range: 13 - 75 U/L Urea nitrogen/Creatinine [Mass ratio] 17.1 mg/mg 10-20 [facility] - Hematology and Cell countsOrdered By: Phillip Aguiar on 10-10-2023 Erythrocyte distribution width (RBC) [Entitic vol] 42.4 fL 35.1-43.9 [facility] Erythrocyte distribution width (RBC) [Ratio] 12.4 % 11.6-14.6 [facility] Immature granulocytes/100 WBC (Bld) 0.300 % 0.0-0.9 [facility] Comment on above: IG% - Immature Granu locytes (promyelocytes, myelocytes and metamyelocytes) > 1% indicates that a LEFT SHIFT is Present. MCH (RBC) [Entitic mass] 30.8 pg 27.0-32.0 [facility] Nucleated RBC/100 WBC (Bld) [Ratio] 0 % 0-5 [facility] MCHC Auto (RBC) [Mass/Vol]Or dered By: Phillip Aguiar on 10-10-2023 MCHC (RBC) [Mass/Vol] 33.4 g/dL 32-36 [facility] No Panel InformationOrdered By: Phillip Aguiar on 10-10-2023 Estimated Creatinine Clearance Calc 60.11 ml/min [facility] Estimated GFR (MDRD) Amer 64 mL/min >60 [facility] Comment on above: GFR Calc Estimated GFR (MDRD) Non-Af Amer 53 mL/min >60 [facility] Comment on above: Non- GFR Calc Platelets bldOrdered By: James Aguiar on 10-10-2023 Platelets (Bld) [#/Vol] 173 10*3/uL 150-450 [facility] Serum or plasma albumin mc urement (mass/volume)Ordered By: Phillip Aguiar on 10-10-2023 Albumin [Mass/Vol] 4.4 g/dL 3.2-5.0 [facility] Serum or plasma calcium mc urement (mass/volume)Ordered By: Phillip Aguiar on 10-10-2023 Calcium [Mass/Vol] 9.4 mg/dL 8.5-10.1 [facility] Serum or plasma creatinine m easurement (mass/volume)Ordered By: Phillip Aguiar on 10-10-2023 Creatinine [Mass/Vol] 1.46 mg/dL 0.70-1.30 [facility] Comment on above: The validity of the calculated GFR & GFRAA in patients over 70 years has not been determined. Clinical correlation is essential. Serum or plasma urea nitroge n measurement (mass/volume)Ordered By: Phillip Aguiar on 10-10-2023 Urea nitrogen [Mass/Vol] 25 mg/dL 7-18 [facility] Thin prep Papanicolaou smear with manual screeningOrdered By: Phillip Aguiar on 10-10-2023 Thin prep Papanicolaou smear with manual screening 13 U/L 15-37 [facility] Thin prep Papanicolaou smear with manual screening 9 5-15 [facility] Absolute lymphocyte countOrd ered By: Neftali Dickson on 08-09-2023 Lymphocytes Auto (Unsp spec) [#/Vol] 3.91 10*3/uL 0.83-4.51 [facility] Basophil percentageOrdered B y: Neftali Dickson on 08-09-2023 Basophils/100 WBC (Bld) 0.7 % 0-1 [facility] Bilirubin [Mass/Vol] 0.50 mg/dL 0.20-1.00 [facility] Comment on above: For patients on eltr ombopag therapy, use of Dimension [place] TBIL is not recommended. Chloride [Moles/Vol] 101 mmol/L 98-107 [facility] Eosinophils/100 WBC (Bld) 2.4 % 0-5 [facility] Glucose [Mass/Vol] 222 mg/dL 74-106 [facility] Comment on above: Glucose result great er than or equal to 200 mg/dLsuggests DIABETES MELLITUS per A.D.A. criteria. Neutrophils (Bld) [#/Vol] 4.9 10*3/uL 2.0-7.7 [facility] Neutrophils/100 WBC (Bld) 50.2 % 47-70 [facility] Potassium [Moles/Vol] 3.6 mmol/L 3.5-5.1 [facility] Protein [Mass/Vol] 7.4 g/dL 6.4-8.2 [facility] Sodium [Moles/Vol] 134 mmol/L 136-145 [facility] WBC (Bld) [#/Vol] 9.8 10*3/uL 4.4-11.0 [facility] Blood erythrocytes count (nu mber/volume)Ordered By: Neftali Dickson on 08-09-2023 RBC (Bld) [#/Vol] 4.26 10*6/uL 4.6-6.2 [facility] Blood hemoglobin measurement (mass/volume)Ordered By: Neftali Dickson on 08-09-2023 Hemoglobin (Bld) [Mass/Vol] 13.3 g/dL 13.0-16.5 [facility] Blood lymphocytes/100 leukoc ytesOrdered By: Neftali Dickson on 08-09-2023 Lymphocytes/100 WBC (Bld) 39.7 % 19-41 [facility] Blood monocytes/100 leukocyt esOrdered By: Neftali Dickson on 08-09-2023 Monocytes/100 WBC (Bld) 6.6 % 0-10 [facility] Blood platelet mean volumeOr dered By: Neftali Dickson on 08-09-2023 Platelet mean volume (Bld) [Entitic vol] 9.7 fL 6.2-12.0 [facility] Determination of erythrocyte mean corpuscular volume (MCV)Ordered By: Neftali Dickson on 08-09-2023 MCV (RBC) [Entitic vol] 91.5 fL 80-94 [facility] Direct bilirubinOrdered By: Neftali Dickson on 08-09-2023 Bilirubin.direct [Mass/Vol] 0.15 mg/dL 0.00-0.30 [facility] Hematocrit Auto (Bld) [Volum e fraction]Ordered By: Neftali Dickson on 08-09-2023 Hematocrit (Bld) [Volume fraction] 39.0 % 40-54 [facility] - Chemistry and C hemistry - challengeOrdered By: Neftali Dickson on 08-09-2023 ALP [Catalytic activity/Vol] 69 U/L 45-117 [facility] ALT [Catalytic activity/Vol] 17 U/L 16-61 [facility] CO2 [Moles/Vol] 23.0 mmol/L 21.0-32.0 [facility] Globulin (S) [Mass/Vol] 3.6 g/dL 2.2-4.2 [facility] Lipase [Catalytic activity/Vol] 102 U/L 13-75 [facility] Comment on above: Please note:LIPASE r evised reference range effective 23. New Lipase methodology. Expected to produce lower values than the previous assay method. NEW Reference Range: 13 - 75 U/L Urea nitrogen/Creatinine [Mass ratio] 11.5 mg/mg 10-20 [facility] - Hematology and Cell countsOrdered By: Neftali Dickson on 08-09-2023 Erythrocyte distribution width (RBC) [Entitic vol] 41.3 fL 35.1-43.9 [facility] Erythrocyte distribution width (RBC) [Ratio] 12.5 % 11.6-14.6 [facility] Immature granulocytes/100 WBC (Bld) 0.400 % 0.0-0.9 [facility] Comment on above: IG% - Immature Granu locytes (promyelocytes, myelocytes and metamyelocytes) > 1% indicates that a LEFT SHIFT is Present. MCH (RBC) [Entitic mass] 31.2 pg 27.0-32.0 [facility] Nucleated RBC/100 WBC (Bld) [Ratio] 0 % 0-5 [facility] MCHC Auto (RBC) [Mass/Vol]Or dered By: Neftali Dickson on 08-09-2023 MCHC (RBC) [Mass/Vol] 34.1 g/dL 32-36 [facility] No Panel InformationOrdered By: Neftali Dickson on 08-09-2023 Estimated Creatinine Clearance Calc 86.60 ml/min [facility] Estimated GFR (MDRD) Amer 104 mL/min >60 [facility] Comment on above: GFR Calc Estimated GFR (MDRD) Non-Af Amer 86 mL/min >60 [facility] Comment on above: Non- GFR Calc Troponin I High Sensitivity 13 pg/mL 3.0-78.0 [facility] Comment on above: Please Note: New Dest[place] t Units and Gender Specific Reference Ranges. For more information see Policy Stat Procedure [place] High Sensitivity Troponin (TNIH) and attachments. Platelets bldOrdered By: Ramo Dickson on 08-09-2023 Platelets (Bld) [#/Vol] 180 10*3/uL 150-450 [facility] Serum or plasma albumin mc urement (mass/volume)Ordered By: Neftali Dickson on 08-09-2023 Albumin [Mass/Vol] 3.8 g/dL 3.2-5.0 [facility] Serum or plasma calcium mc urement (mass/volume)Ordered By: Neftali Dickson on 08-09-2023 Calcium [Mass/Vol] 8.8 mg/dL 8.5-10.1 [facility] Serum or plasma creatinine m easurement (mass/volume)Ordered By: Neftali Dickson on 08-09-2023 Creatinine [Mass/Vol] 0.96 mg/dL 0.70-1.30 [facility] Comment on above: The validity of the calculated GFR & GFRAA in patients over 70 years has not been determined. Clinical correlation is essential. Serum or plasma urea nitroge n measurement (mass/volume)Ordered By: Neftali Dickson on 08-09-2023 Urea nitrogen [Mass/Vol] 11 mg/dL 7-18 [facility] Thin prep Papanicolaou smear with manual screeningOrdered By: Neftali Dickson on 08-09-2023 Thin prep Papanicolaou smear with manual screening 11 U/L 15-37 [facility] Thin prep Papanicolaou smear with manual screening 10 5-15 [facility] XR Chest PA and Lateralon IMPRESSION: No acute radiographic abnormality. Top Bottom Attaching Machine Operator: JACQUE Transcribe Date/Time: Jun 05 2023 1:02P Dictated by : GEOFFREY CARROLL MD This examination was interpreted and the report reviewed and electronically signed by: GEOFFREY CARROLL MD on Jun 05 2023 1:02PM [facility] DIVISION OF RADIOLOGY * * *Final Report* * * DATE OF EXAM: Jun 05 2023 12:39PM WOX [id number] - XR CHEST 2V FRONTAL/LAT / PROCEDURE REASON: Pneumonia of left lower lobe due to infectious organism * * * * Physician Interpretation * * * * EXAMINATION: CHEST RADIOGRAPH (2 VIEW FRONTAL & LATERAL) CLINICAL HISTORY: Pneumonia of left lower lobe due to infectious organism MQ: XC2_6 EXAM DATE/TIME: 06/05/2023 12:39 PM COMPARISON: No relevant prior studies available. RESULT: Lines, tubes, and devices: None. Lungs and pleura: No consolidation. No lung mass. No pleural effusion. No pneumothorax. Cardiomediastinal silhouette: Normal cardiomediastinal silhouette. Bones and soft tissues: Unremarkable. DIVISION OF RADIOLOGY Provider, [facility] - 06/05/2023 * * *Final Report* * * DATE OF EXAM: Jun 05 2023 12:39PM [id number] - XR CHEST 2V FRONTAL/LAT / PROCEDURE REASON: Pneumonia of left lower lobe due to infectious organism * * * * Physician Interpretation * * * * EXAMINATION: CHEST RADIOGRAPH (2 VIEW FRONTAL & LATERAL) CLINICAL HISTORY: Pneumonia of left lower lobe due to infectious organism MQ: XC2_6 EXAM DATE/TIME: 06/05/2023 12:39 PM COMPARISON: No relevant prior studies available. RESULT: Lines, tubes, and devices: None. Lungs and pleura: No consolidation. No lung mass. No pleural effusion. No pneumothorax. Cardiomediastinal silhouette: Normal cardiomediastinal silhouette. Bones and soft tissues: Unremarkable. IMPRESSION IMPRESSION: No acute radiographic abnormality. Top Bottom Attaching Machine Operator: JACQUE Transcribe Date/Time: Jun 05 2023 1:02P Dictated by : GEOFFREY CARROLL MD This examination was interpreted and the report reviewed and electronically signed by: GEOFFREY CARROLL MD on Jun 05 2023 1:02PM EST [facility] Radiology Study observation (narrative) [facility] XR Chest PA and LateralOrder ed By: [facility] Provider on 06-05-2023 [facility] Absolute lymphocyte countOrd ered By: ED PROVIDER on 05-03-2023 Lymphocytes Auto (Unsp spec) [#/Vol] 3.33 10*3/uL 0.83-4.51 [facility] Basophil percentageOrdered B y: ED PROVIDER on 05-03-2023 Basophil percentage 0 SEEN /hpf 0-5 [facility] Basophils/100 WBC (Bld) 0.3 % 0-1 [facility] Bilirubin [Mass/Vol] 0.40 mg/dL 0.20-1.00 [facility] Comment on above: For patients on eltr ombopag therapy, use of Dimension [place] TBIL is not recommended. Chloride [Moles/Vol] 99 mmol/L 98-107 [facility] Eosinophils/100 WBC (Bld) 1.9 % 0-5 [facility] Glucose [Mass/Vol] 242 mg/dL 74-106 [facility] Comment on above: Glucose result great er than or equal to 200 mg/dLsuggests DIABETES MELLITUS per A.D.A. criteria. Neutrophils (Bld) [#/Vol] 7.3 10*3/uL 2.0-7.7 [facility] Neutrophils/100 WBC (Bld) 63.8 % 47-70 [facility] Potassium [Moles/Vol] 4.0 mmol/L 3.5-5.1 [facility] Comment on above: Slight Hemolysis, Re sult may be falsely increased. Protein [Mass/Vol] 7.9 g/dL 6.4-8.2 [facility] Sodium [Moles/Vol] 136 mmol/L 136-145 [facility] WBC (Bld) [#/Vol] 11.5 10*3/uL 4.4-11.0 [facility] Bilirubin Test strip Ql (U)O rdered By: ED PROVIDER on 05-03-2023 Bilirubin Ql (U) Negative Negative [facility] Blood erythrocytes count (nu mber/volume)Ordered By: ED PROVIDER on 05-03-2023 RBC (Bld) [#/Vol] 4.21 10*6/uL 4.6-6.2 [facility] Blood hemoglobin measurement (mass/volume)Ordered By: ED PROVIDER on 05-03-2023 Hemoglobin (Bld) [Mass/Vol] 13.1 g/dL 13.0-16.5 [facility] Blood lymphocytes/100 leukoc ytesOrdered By: ED PROVIDER on 05-03-2023 Lymphocytes/100 WBC (Bld) 29.0 % 19-41 [facility] Blood monocytes/100 leukocyt esOrdered By: ED PROVIDER on 05-03-2023 Monocytes/100 WBC (Bld) 4.7 % 0-10 [facility] Blood platelet mean volumeOr dered By: ED PROVIDER on 05-03-2023 Platelet mean volume (Bld) [Entitic vol] 9.4 fL 6.2-12.0 [facility] Determination of erythrocyte mean corpuscular volume (MCV)Ordered By: ED PROVIDER on 05-03-2023 MCV (RBC) [Entitic vol] 93.1 fL 80-94 [facility] Hematocrit Auto (Bld) [Volum e fraction]Ordered By: ED PROVIDER on 05-03-2023 Hematocrit (Bld) [Volume fraction] 39.2 % 40-54 [facility] Ketones Test strip Ql (U)Ord ered By: ED PROVIDER on 05-03-2023 Ketones Ql (U) Negative Negative [facility] - Chemistry and C hemistry - challengeOrdered By: ED PROVIDER on 05-03-2023 ALP [Catalytic activity/Vol] 72 U/L 45-117 [facility] ALT [Catalytic activity/Vol] 18 U/L 16-61 [facility] CO2 [Moles/Vol] 29.0 mmol/L 21.0-32.0 [facility] Globulin (S) [Mass/Vol] 3.9 g/dL 2.2-4.2 [facility] Urea nitrogen/Creatinine [Mass ratio] 9.5 mg/mg 10-20 [facility] - Chemistry and C hemistry - challengeOrdered By: Lynnette Julian on 05-03-2023 Lipase [Catalytic activity/Vol] 60 U/L 13-75 [facility] Comment on above: Please note:LIPASE r evised reference range effective 23. New Lipase methodology. Expected to produce lower values than the previous assay method. NEW Reference Range: 13 - 75 U/L Laboratory - Hematology and Cell countsOrdered By: ED PROVIDER on 05-03-2023 Erythrocyte distribution width (RBC) [Entitic vol] 43.7 fL 35.1-43.9 [facility] Erythrocyte distribution width (RBC) [Ratio] 12.8 % 11.6-14.6 [facility] Immature granulocytes/100 WBC (Bld) 0.300 % 0.0-0.9 [facility] Comment on above: IG% - Immature Granu locytes (promyelocytes, myelocytes and metamyelocytes) > 1% indicates that a LEFT SHIFT is Present. MCH (RBC) [Entitic mass] 31.1 pg 27.0-32.0 [facility] Nucleated RBC/100 WBC (Bld) [Ratio] 0 % 0-5 [facility] MCHC Auto (RBC) [Mass/Vol]Or dered By: ED PROVIDER on 05-03-2023 MCHC (RBC) [Mass/Vol] 33.4 g/dL 32-36 [facility] Comment on above: Delta: 35.3 on 04/30-0459 Mucus LM Ql (Urine sed)Order ed By: ED PROVIDER on 05-03-2023 Mucus Ql (Urine sed) 0 SEEN /hpf [facility] Nitrite Test strip Ql (U)Ord ered By: ED PROVIDER on 05-03-2023 Nitrite Ql (U) Negative Negative [facility] No Panel InformationOrdered By: ED PROVIDER on 05-03-2023 Estimated Creatinine Clearance Calc 60.69 ml/min [facility] Estimated GFR (MDRD) Amer 69 mL/min >60 [facility] Comment on above: GFR Calc Estimated GFR (MDRD) Non-Af Amer 57 mL/min >60 [facility] Comment on above: Non- GFR Calc Platelets bldOrdered By: ED PROVIDER on 05-03-2023 Platelets (Bld) [#/Vol] 214 10*3/uL 150-450 [facility] Protein Test strip Ql (U)Ord ered By: ED PROVIDER on 05-03-2023 Protein Ql (U) 30 mg/dl Negative [facility] Serum or plasma albumin mc urement (mass/volume)Ordered By: ED PROVIDER on 05-03-2023 Albumin [Mass/Vol] 4.0 g/dL 3.2-5.0 [facility] Serum or plasma albumin/glob ulin mass ratioOrdered By: ED PROVIDER on 05-03-2023 Albumin/Globulin [Mass ratio] 1.0 {ratio} 0.9-2.4 [facility] Serum or plasma calcium mc urement (mass/volume)Ordered By: ED PROVIDER on 05-03-2023 Calcium [Mass/Vol] 9.8 mg/dL 8.5-10.1 [facility] Serum or plasma creatinine m easurement (mass/volume)Ordered By: ED PROVIDER on 05-03-2023 Creatinine [Mass/Vol] 1.37 mg/dL 0.70-1.30 [facility] Comment on above: The validity of the calculated GFR & GFRAA in patients over 70 years has not been determined. Clinical correlation is essential. Serum or plasma urea nitroge n measurement (mass/volume)Ordered By: ED PROVIDER on 05-03-2023 Urea nitrogen [Mass/Vol] 13 mg/dL 7-18 [facility] Squamous epithelial cells de tection in urine sediment by light microscopyOrdered By: ED PROVIDER on 05-03-2023 Epithelial cells.squamous LM Ql (Urine sed) 0 SEEN /hpf 0-5 [facility] Thin prep Papanicolaou smear with manual screeningOrdered By: ED PROVIDER on 05-03-2023 Thin prep Papanicolaou smear with manual screening 14 U/L 15-37 [facility] Comment on above: Slight Hemolysis, Re sult may be falsely increased. Thin prep Papanicolaou smear with manual screening 8 5-15 [facility] Urine blood detectionOrdered By: ED PROVIDER on 05-03-2023 RBC Ql (U) Negative Negative [facility] RBC Ql (U) 0 SEEN /hpf 0-5 [facility] Urine clarityOrdered By: ED PROVIDER on 05-03-2023 Clarity (U) Clear Clear [facility] Urine color determinationOrd ered By: ED PROVIDER on 05-03-2023 Color (U) Yellow Yellow [facility] Urine glucose detectionOrder ed By: ED PROVIDER on 05-03-2023 Glucose Ql (U) 100 mg/dl Normal [facility] Urine leukocyte esterase det ection by dipstickOrdered By: ED PROVIDER on 05-03-2023 Leukocyte esterase Test strip Ql (U) Negative Negative [facility] Urine pHOrdered By: ED PROVI MARION on 05-03-2023 pH (U) 7.0 [pH] 5.0 - 8.0 [facility] Urine sediment bacteria coun t by microscopy (number/high power field)Ordered By: ED PROVIDER on 05-03-2023 Bacteria LM.HPF (Urine sed) [#/Area] 0 /[HPF] None Seen [facility] Urine specific gravity measu rementOrdered By: ED PROVIDER on 05-03-2023 Specific gravity (U) [Rel density] 1.005 1.002-1.03 0 [facility] Urobilinogen Auto test strip Ql (U)Ordered By: ED PROVIDER on 05-03-2023 Urobilinogen Ql (U) Normal mg/dl Normal [facility] Absolute lymphocyte countOrd ered By: Magno Mora on 04-30-2023 Lymphocytes Auto (Unsp spec) [#/Vol] 2.22 10*3/uL 0.83-4.51 [facility] Basophil percentageOrdered B y: Magno Mora on 04-30-2023 Basophils/100 WBC (Bld) 0.6 % 0-1 [facility] Bilirubin [Mass/Vol] 0.70 mg/dL 0.20-1.00 [facility] Comment on above: For patients on eltr ombopag therapy, use of Dimension [place] TBIL is not recommended. Chloride [Moles/Vol] 97 mmol/L 98-107 [facility] Eosinophils/100 WBC (Bld) 0.6 % 0-5 [facility] Glucose [Mass/Vol] 206 mg/dL 74-106 [facility] Comment on above: Glucose result great er than or equal to 200 mg/dLsuggests DIABETES MELLITUS per A.D.A. criteria. Neutrophils (Bld) [#/Vol] 9.3 10*3/uL 2.0-7.7 [facility] Neutrophils/100 WBC (Bld) 73.6 % 47-70 [facility] Potassium [Moles/Vol] 3.7 mmol/L 3.5-5.1 [facility] Protein [Mass/Vol] 8.3 g/dL 6.4-8.2 [facility] Sodium [Moles/Vol] 133 mmol/L 136-145 [facility] WBC (Bld) [#/Vol] 12.7 10*3/uL 4.4-11.0 [facility] Blood erythrocytes count (nu mber/volume)Ordered By: Magno Mora on 04-30-2023 RBC (Bld) [#/Vol] 4.58 10*6/uL 4.6-6.2 [facility] Blood hemoglobin measurement (mass/volume)Ordered By: Magno Mora on 04-30-2023 Hemoglobin (Bld) [Mass/Vol] 14.4 g/dL 13.0-16.5 [facility] Blood lymphocytes/100 leukoc ytesOrdered By: Magno Mora on 04-30-2023 Lymphocytes/100 WBC (Bld) 17.5 % 19-41 [facility] Blood monocytes/100 leukocyt esOrdered By: Magno Mora on 04-30-2023 Monocytes/100 WBC (Bld) 7.3 % 0-10 [facility] Blood platelet mean volumeOr dered By: Magno Mora on 04-30-2023 Platelet mean volume (Bld) [Entitic vol] 9.1 fL 6.2-12.0 [facility] Determination of erythrocyte mean corpuscular volume (MCV)Ordered By: Magno Mora on 04-30-2023 MCV (RBC) [Entitic vol] 89.1 fL 80-94 [facility] Hematocrit Auto (Bld) [Volum e fraction]Ordered By: Magno Mora on 04-30-2023 Hematocrit (Bld) [Volume fraction] 40.8 % 40-54 [facility] - Chemistry and C hemistry - challengeOrdered By: Magno Mora on 04-30-2023 ALP [Catalytic activity/Vol] 72 U/L 45-117 [facility] ALT [Catalytic activity/Vol] 29 U/L 16-61 [facility] CO2 [Moles/Vol] 23.0 mmol/L 21.0-32.0 [facility] Globulin (S) [Mass/Vol] 4.2 g/dL 2.2-4.2 [facility] Lipase [Catalytic activity/Vol] 351 U/L 13-75 [facility] Comment on above: Please note:LIPASE r evised reference range effective 23. New Lipase methodology. Expected to produce lower values than the previous assay method. NEW Reference Range: 13 - 75 U/L Urea nitrogen/Creatinine [Mass ratio] 7.2 mg/mg 10-20 [facility] - Hematology and Cell countsOrdered By: Magno Mora on 04-30-2023 Erythrocyte distribution width (RBC) [Entitic vol] 40.9 fL 35.1-43.9 [facility] Erythrocyte distribution width (RBC) [Ratio] 12.5 % 11.6-14.6 [facility] Immature granulocytes/100 WBC (Bld) 0.400 % 0.0-0.9 [facility] Comment on above: IG% - Immature Granu locytes (promyelocytes, myelocytes and metamyelocytes) > 1% indicates that a LEFT SHIFT is Present. MCH (RBC) [Entitic mass] 31.4 pg 27.0-32.0 [facility] Nucleated RBC/100 WBC (Bld) [Ratio] 0 % 0-5 [facility] MCHC Auto (RBC) [Mass/Vol]Or dered By: Magno Mora on 04-30-2023 MCHC (RBC) [Mass/Vol] 35.3 g/dL 32-36 [facility] No Panel InformationOrdered By: Magno Mora on 04-30-2023 Estimated Creatinine Clearance Calc 85.71 ml/min [facility] Estimated GFR (MDRD) Amer 102 mL/min >60 [facility] Comment on above: GFR Calc Estimated GFR (MDRD) Non-Af Amer 84 mL/min >60 [facility] Comment on above: Non- GFR Calc Ethyl Alcohol Level 63.0 mg/dL [facility] Comment on above: The serum:whole bloo d ethanol ratio is approximately 1.14and varies slightly with hematocrit. Medical Alcohol reference interval and critical value innon-tolerant individuals; 50 - 100 Impairment 100 Intoxication 100 - 250 Severe Poisoning 250 - 400 Deep/possible fatal coma Platelets bldOrdered By: Juan jessie Morgan on 04-30-2023 Platelets (Bld) [#/Vol] 240 10*3/uL 150-450 [facility] Serum or plasma albumin mc urement (mass/volume)Ordered By: Magno Mora on 04-30-2023 Albumin [Mass/Vol] 4.1 g/dL 3.2-5.0 [facility] Serum or plasma albumin/glob ulin mass ratioOrdered By: Magno Mora on 04-30-2023 Albumin/Globulin [Mass ratio] 1.0 {ratio} 0.9-2.4 [facility] Serum or plasma calcium mc urement (mass/volume)Ordered By: Magno Mora on 04-30-2023 Calcium [Mass/Vol] 9.8 mg/dL 8.5-10.1 [facility] Serum or plasma creatinine m easurement (mass/volume)Ordered By: Magno Mora on 04-30-2023 Creatinine [Mass/Vol] 0.97 mg/dL 0.70-1.30 [facility] Comment on above: The validity of the calculated GFR & GFRAA in patients over 70 years has not been determined. Clinical correlation is essential. Serum or plasma urea nitroge n measurement (mass/volume)Ordered By: Magno Mora on 04-30-2023 Urea nitrogen [Mass/Vol] 7 mg/dL 7-18 [facility] Thin prep Papanicolaou smear with manual screeningOrdered By: Magno Mora on 04-30-2023 Thin prep Papanicolaou smear with manual screening 17 U/L 15-37 [facility] Thin prep Papanicolaou smear with manual screening 13 5-15 [facility] Absolute lymphocyte countOrd ered By: Dr. Gandhi on 03-10-2023 Lymphocytes Auto (Unsp spec) [#/Vol] 2.72 10*3/uL 0.83-4.51 [facility] Basophil percentageOrdered B y: Dr. Gandhi on 03-10-2023 Basophils/100 WBC (Bld) 0.3 % 0-1 [facility] Bilirubin [Mass/Vol] 0.70 mg/dL 0.20-1.00 [facility] Comment on above: For patients on eltr ombopag therapy, use of Dimension [place] TBIL is not recommended. Chloride [Moles/Vol] 98 mmol/L 98-107 [facility] Eosinophils/100 WBC (Bld) 1.5 % 0-5 [facility] Glucose [Mass/Vol] 223 mg/dL 74-106 [facility] Comment on above: Glucose result great er than or equal to 200 mg/dLsuggests DIABETES MELLITUS per A.D.A. criteria. Neutrophils (Bld) [#/Vol] 8.3 10*3/uL 2.0-7.7 [facility] Neutrophils/100 WBC (Bld) 68.6 % 47-70 [facility] Potassium [Moles/Vol] 3.8 mmol/L 3.5-5.1 [facility] Comment on above: Moderate Hemolysis, Result may be falsely increased. Protein [Mass/Vol] 7.6 g/dL 6.4-8.2 [facility] Sodium [Moles/Vol] 131 mmol/L 136-145 [facility] WBC (Bld) [#/Vol] 12.1 10*3/uL 4.4-11.0 [facility] Blood erythrocytes count (nu mber/volume)Ordered By: Dr. Gandhi on 03-10-2023 RBC (Bld) [#/Vol] 4.30 10*6/uL 4.6-6.2 [facility] Blood hemoglobin measurement (mass/volume)Ordered By: Dr. Gandhi on 03-10-2023 Hemoglobin (Bld) [Mass/Vol] 13.9 g/dL 13.0-16.5 [facility] Blood lymphocytes/100 leukoc ytesOrdered By: Dr. Gandhi on 03-10-2023 Lymphocytes/100 WBC (Bld) 22.4 % 19-41 [facility] Blood monocytes/100 leukocyt esOrdered By: Dr. Gandhi on 03-10-2023 Monocytes/100 WBC (Bld) 7.0 % 0-10 [facility] Blood platelet mean volumeOr dered By: Dr. Gandhi on 03-10-2023 Platelet mean volume (Bld) [Entitic vol] 9.5 fL 6.2-12.0 [facility] Determination of erythrocyte mean corpuscular volume (MCV)Ordered By: Dr. Gandhi on 03-10-2023 MCV (RBC) [Entitic vol] 92.6 fL 80-94 [facility] Hematocrit Auto (Bld) [Volum e fraction]Ordered By: Dr. Gandhi on 03-10-2023 Hematocrit (Bld) [Volume fraction] 39.8 % 40-54 [facility] - Chemistry and C hemistry - challengeOrdered By: Dr. Gandhi on 03-10-2023 ALP [Catalytic activity/Vol] 66 U/L 45-117 [facility] ALT [Catalytic activity/Vol] 17 U/L 16-61 [facility] CO2 [Moles/Vol] 24.0 mmol/L 21.0-32.0 [facility] Globulin (S) [Mass/Vol] 3.8 g/dL 2.2-4.2 [facility] Lipase [Catalytic activity/Vol] 129 U/L 13-75 [facility] Comment on above: Please note:LIPASE r evised reference range effective 23. New Lipase methodology. Expected to produce lower values than the previous assay method. NEW Reference Range: 13 - 75 U/L Urea nitrogen/Creatinine [Mass ratio] 11.4 mg/mg 10-20 [facility] - Hematology and Cell countsOrdered By: Dr. Gandhi on 03-10-2023 Erythrocyte distribution width (RBC) [Entitic vol] 43.2 fL 35.1-43.9 [facility] Erythrocyte distribution width (RBC) [Ratio] 12.7 % 11.6-14.6 [facility] Immature granulocytes/100 WBC (Bld) 0.200 % 0.0-0.9 [facility] Comment on above: IG% - Immature Granu locytes (promyelocytes, myelocytes and metamyelocytes) > 1% indicates that a LEFT SHIFT is Present. MCH (RBC) [Entitic mass] 32.3 pg 27.0-32.0 [facility] Nucleated RBC/100 WBC (Bld) [Ratio] 0 % 0-5 [facility] MCHC Auto (RBC) [Mass/Vol]Or dered By: Dr. Gandhi on 03-10-2023 MCHC (RBC) [Mass/Vol] 34.9 g/dL 32-36 [facility] No Panel InformationOrdered By: Dr. Gandhi on 03-10-2023 Estimated Creatinine Clearance Calc 73.82 ml/min [facility] Estimated GFR (MDRD) Amer 85 mL/min >60 [facility] Comment on above: GFR Calc Estimated GFR (MDRD) Non-Af Amer 70 mL/min >60 [facility] Comment on above: Non- GFR Calc Platelets bldOrdered By: Dr. Gandhi on 03-10-2023 Platelets (Bld) [#/Vol] 166 10*3/uL 150-450 [facility] Serum or plasma albumin mc urement (mass/volume)Ordered By: Dr. Gandhi on 03-10-2023 Albumin [Mass/Vol] 3.8 g/dL 3.2-5.0 [facility] Serum or plasma albumin/glob ulin mass ratioOrdered By: Dr. Gandhi on 03-10-2023 Albumin/Globulin [Mass ratio] 1.0 {ratio} 0.9-2.4 [facility] Serum or plasma calcium mc urement (mass/volume)Ordered By: Dr. Gandhi on 03-10-2023 Calcium [Mass/Vol] 9.7 mg/dL 8.5-10.1 [facility] Serum or plasma creatinine m easurement (mass/volume)Ordered By: Dr. Gandhi on 03-10-2023 Creatinine [Mass/Vol] 1.14 mg/dL 0.70-1.30 [facility] Comment on above: The validity of the calculated GFR & GFRAA in patients over 70 years has not been determined. Clinical correlation is essential. Serum or plasma urea nitroge n measurement (mass/volume)Ordered By: Dr. Gandhi on 03-10-2023 Urea nitrogen [Mass/Vol] 13 mg/dL 7-18 [facility] Thin prep Papanicolaou smear with manual screeningOrdered By: Dr. Gandhi on 03-10-2023 Thin prep Papanicolaou smear with manual screening 21 U/L 15-37 [facility] Comment on above: Moderate Hemolysis, Result may be falsely increased. Thin prep Papanicolaou smear with manual screening 9 5-15 [facility] GLUCOSE, BLOOD (POC)on 02-06 Glucose [Mass/Vol] 397 mg/dL Abnormal 74 - 99 mg/dL [facility] Basophil percentageOrdered B y: Dr. Burnett on 02-02-2023 Ammonia (P) [Moles/Vol] 44.0 umol/L - [facility] Basophil percentage 44.0 umol/L [facility] No Panel InformationOrdered By: Dr. Burnett on 02-02-2023 Levetiracetam (Keppra) Level 15.1 ug/mL 10.0-40.0 [facility] Comment on above: Performed at: [address] [id number] Director: Fam Talbert MD, Phone: [phone] 15.1 ug/mL 10.0-40.0 [facility] Absolute lymphocyte countOrd ered By: Dr. Dickson on 01-22-2023 Lymphocytes Auto (Unsp spec) [#/Vol] 2.82 10*3/uL 0.83-4.51 [facility] Basophil percentageOrdered B y: Dr. Dickson on 01-22-2023 Basophil percentage 420 mg/dL 74-106 [facility] Basophil percentage 6.3 g/dL 6.4-8.2 [facility] Basophil percentage 0.60 mg/dL 0.20-1.00 [facility] Basophil percentage 135 mmol/L 136-145 [facility] Basophil percentage 3.7 mmol/L 3.5-5.1 [facility] Basophil percentage 104 mmol/L 98-107 [facility] Basophils (Bld) [#/Vol] 12.7 10*3/uL 4.4-11.0 [facility] Basophils (Bld) [#/Vol] 8.7 10*3/uL 2.0-7.7 [facility] Basophils/100 WBC (Bld) 68.2 % 47-70 [facility] Basophils/100 WBC (Bld) 0.9 % 0-5 [facility] Basophils/100 WBC (Bld) 0.4 % 0-1 [facility] Bilirubin [Mass/Vol] 0.60 mg/dL 0.20-1.00 [facility] Comment on above: For patients on eltr ombopag therapy, use of Dimension [place] TBIL is not recommended. Chloride [Moles/Vol] 104 mmol/L 98-107 [facility] Eosinophils/100 WBC (Bld) 0.9 % 0-5 [facility] Glucose [Mass/Vol] 420 mg/dL 74-106 [facility] Comment on above: Glucose result great er than or equal to 200 mg/dLsuggests DIABETES MELLITUS per A.D.A. criteria. Neutrophils (Bld) [#/Vol] 8.7 10*3/uL 2.0-7.7 [facility] Neutrophils/100 WBC (Bld) 68.2 % 47-70 [facility] Potassium [Moles/Vol] 3.7 mmol/L 3.5-5.1 [facility] Protein [Mass/Vol] 6.3 g/dL 6.4-8.2 [facility] Sodium [Moles/Vol] 135 mmol/L 136-145 [facility] WBC (Bld) [#/Vol] 12.7 10*3/uL 4.4-11.0 [facility] Blood erythrocytes count (nu mber/volume)Ordered By: Dr. Dickson on 01-22-2023 RBC (Bld) [#/Vol] 3.59 10*6/uL 4.6-6.2 [facility] Blood hemoglobin measurement (mass/volume)Ordered By: Dr. Dickson on 01-22-2023 Hemoglobin (Bld) [Mass/Vol] 11.6 g/dL 13.0-16.5 [facility] Blood lymphocytes/100 leukoc ytesOrdered By: Dr. Dickson on 01-22-2023 Lymphocytes/100 WBC (Bld) 22.2 % 19-41 [facility] Blood monocytes/100 leukocyt esOrdered By: Dr. Dickson on 01-22-2023 Monocytes/100 WBC (Bld) 7.6 % 0-10 [facility] Blood platelet mean volumeOr dered By: Dr. Dickson on 01-22-2023 Platelet mean volume (Bld) [Entitic vol] 9.3 fL 6.2-12.0 [facility] Determination of erythrocyte mean corpuscular volume (MCV)Ordered By: Dr. Dickson on 01-22-2023 MCV (RBC) [Entitic vol] 95.5 fL 80-94 [facility] Direct bilirubinOrdered By: Dr. Dickson on 01-22-2023 Bilirubin.direct [Mass/Vol] 0.19 mg/dL 0.00-0.30 [facility] Hematocrit Auto (Bld) [Volum e fraction]Ordered By: Dr. Dickson on 01-22-2023 Hematocrit (Bld) [Volume fraction] 34.3 % 40-54 [facility] Laboratory - Chemistry and C hemistry - challengeOrdered By: Dr. Dickson on 01-22-2023 ALP [Catalytic activity/Vol] 88 U/L 45-117 [facility] ALT [Catalytic activity/Vol] 23 U/L 16-61 [facility] CO2 [Moles/Vol] 26.0 mmol/L 21.0-32.0 [facility] Globulin (S) [Mass/Vol] 3.3 g/dL 2.2-4.2 [facility] Lipase [Catalytic activity/Vol] 42 U/L 13-75 [facility] Comment on above: Please note:LIPASE r evised reference range effective 23. New Lipase methodology. Expected to produce lower values than the previous assay method. NEW Reference Range: 13 - 75 U/L Urea nitrogen/Creatinine [Mass ratio] 16.2 mg/mg 10-20 [facility] - Hematology and Cell countsOrdered By: Dr. Dickson on 01-22-2023 Erythrocyte distribution width (RBC) [Entitic vol] 44.6 fL 35.1-43.9 [facility] Erythrocyte distribution width (RBC) [Ratio] 12.8 % 11.6-14.6 [facility] Immature granulocytes/100 WBC (Bld) 0.700 % 0.0-0.9 [facility] Comment on above: IG% - Immature Granu locytes (promyelocytes, myelocytes and metamyelocytes) > 1% indicates that a LEFT SHIFT is Present. MCH (RBC) [Entitic mass] 32.3 pg 27.0-32.0 [facility] Nucleated RBC/100 WBC (Bld) [Ratio] 0 % 0-5 [facility] MCHC Auto (RBC) [Mass/Vol]Or dered By: Dr. Dickson on 01-22-2023 MCHC (RBC) [Mass/Vol] 33.8 g/dL 32-36 [facility] No Panel InformationOrdered By: Dr. Dickson on 01-22-2023 Estimated Creatinine Clearance Calc 71.93 ml/min [facility] Estimated GFR (MDRD) Amer 82 mL/min >60 [facility] Comment on above: GFR Calc Estimated GFR (MDRD) Non-Af Amer 68 mL/min >60 [facility] Comment on above: Non- GFR Calc Troponin I High Sensitivity 8 pg/mL 3.0-78.0 [facility] Comment on above: Please Note: New [place] t Units and Gender Specific Reference Ranges. For more information see Policy Stat Procedure [place] High Sensitivity Troponin (TNIH) and attachments. 32.3 pg 27.0-32.0 [facility] 12.8 % 11.6-14.6 [facility] 44.6 fl 35.1-43.9 [facility] 0.700 % 0.0-0.9 [facility] 0 % 0-5 [facility] 68 mL/min >60 [facility] 82 mL/min >60 [facility] 71.93 ml/min [facility] 16.2 RATIO 10-20 [facility] 3.3 g/dL 2.2-4.2 [facility] 42 U/L 13-75 [facility] 8 pg/mL 3.0-78.0 [facility] 88 U/L 45-117 [facility] 23 U/L 16-61 [facility] 26.0 mmol/L 21.0-32.0 [facility] Platelets bldOrdered By: Dr. Dickson on 01-22-2023 Platelets (Bld) [#/Vol] 172 10*3/uL 150-450 [facility] Serum or plasma albumin mc urement (mass/volume)Ordered By: Dr. Dickson on 01-22-2023 Albumin [Mass/Vol] 3.0 g/dL 3.2-5.0 [facility] Serum or plasma calcium mc urement (mass/volume)Ordered By: Dr. Dickson on 01-22-2023 Calcium [Mass/Vol] 9.1 mg/dL 8.5-10.1 [facility] Serum or plasma creatinine m easurement (mass/volume)Ordered By: Dr. Dickson on 01-22-2023 Creatinine [Mass/Vol] 1.17 mg/dL 0.70-1.30 [facility] Comment on above: The validity of the calculated GFR & GFRAA in patients over 70 years has not been determined. Clinical correlation is essential. Serum or plasma urea nitroge n measurement (mass/volume)Ordered By: Dr. Dickson on 01-22-2023 Urea nitrogen [Mass/Vol] 19 mg/dL 7-18 [facility] Thin prep Papanicolaou smear with manual screeningOrdered By: Dr. Dickson on 01-22-2023 Thin prep Papanicolaou smear with manual screening 11 U/L 15-37 [facility] Thin prep Papanicolaou smear with manual screening 5 5-15 [facility] Absolute lymphocyte countOrd ered By: Dr. Rios on 01-21-2023 Lymphocytes Auto (Unsp spec) [#/Vol] 3.18 10*3/uL 0.83-4.51 [facility] Basophil percentageOrdered B y: Dr. Rios on 01-21-2023 Basophil percentage 0 SEEN /hpf 0-5 [facility] Basophil percentage 383 mg/dL 74-106 [facility] Basophil percentage 6.4 g/dL 6.4-8.2 [facility] Basophil percentage 0.60 mg/dL 0.20-1.00 [facility] Basophil percentage 133 mmol/L 136-145 [facility] Basophil percentage 3.7 mmol/L 3.5-5.1 [facility] Basophil percentage 100 mmol/L 98-107 [facility] Basophils (Bld) [#/Vol] 12.6 10*3/uL 4.4-11.0 [facility] Basophils (Bld) [#/Vol] 8.3 10*3/uL 2.0-7.7 [facility] Basophils/100 WBC (Bld) 0.4 % 0-1 [facility] Basophils/100 WBC (Bld) 66.2 % 47-70 [facility] Basophils/100 WBC (Bld) 1.0 % 0-5 [facility] Bilirubin [Mass/Vol] 0.60 mg/dL 0.20-1.00 [facility] Comment on above: For patients on eltr ombopag therapy, use of Dimension [place] TBIL is not recommended. Chloride [Moles/Vol] 100 mmol/L 98-107 [facility] Eosinophils/100 WBC (Bld) 1.0 % 0-5 [facility] Glucose [Mass/Vol] 383 mg/dL 74-106 [facility] Comment on above: Glucose result great er than or equal to 200 mg/dLsuggests DIABETES MELLITUS per A.D.A. criteria. Neutrophils (Bld) [#/Vol] 8.3 10*3/uL 2.0-7.7 [facility] Neutrophils/100 WBC (Bld) 66.2 % 47-70 [facility] Potassium [Moles/Vol] 3.7 mmol/L 3.5-5.1 [facility] Comment on above: Slight Hemolysis, Re sult may be falsely increased. Protein [Mass/Vol] 6.4 g/dL 6.4-8.2 [facility] Sodium [Moles/Vol] 133 mmol/L 136-145 [facility] WBC (Bld) [#/Vol] 12.6 10*3/uL 4.4-11.0 [facility] Bilirubin Test strip Ql (U)O rdered By: Dr. Rios on 01-21-2023 Bilirubin Ql (U) Negative Negative [facility] Blood erythrocytes count (nu mber/volume)Ordered By: Dr. Rios on 01-21-2023 RBC (Bld) [#/Vol] 3.79 10*6/uL 4.6-6.2 [facility] Blood hemoglobin measurement (mass/volume)Ordered By: Dr. Rios on 01-21-2023 Hemoglobin (Bld) [Mass/Vol] 12.1 g/dL 13.0-16.5 [facility] Blood lymphocytes/100 leukoc ytesOrdered By: Dr. Rios on 01-21-2023 Lymphocytes/100 WBC (Bld) 25.3 % 19-41 [facility] Blood monocytes/100 leukocyt esOrdered By: Dr. Rios on 01-21-2023 Monocytes/100 WBC (Bld) 6.3 % 0-10 [facility] Blood platelet mean volumeOr dered By: Dr. Rios on 01-21-2023 Platelet mean volume (Bld) [Entitic vol] 9.6 fL 6.2-12.0 [facility] Determination of erythrocyte mean corpuscular volume (MCV)Ordered By: Dr. Rios on 01-21-2023 MCV (RBC) [Entitic vol] 93.7 fL 80-94 [facility] Hematocrit Auto (Bld) [Volum e fraction]Ordered By: Dr. Rios on 01-21-2023 Hematocrit (Bld) [Volume fraction] 35.5 % 40-54 [facility] Ketones Test strip Ql (U)Ord ered By: Dr. Rios on 01-21-2023 Ketones Ql (U) Negative Negative [facility] - Chemistry and C hemistry - challengeOrdered By: Dr. Rios on 01-21-2023 ALP [Catalytic activity/Vol] 81 U/L 45-117 [facility] ALT [Catalytic activity/Vol] 24 U/L 16-61 [facility] CO2 [Moles/Vol] 25.0 mmol/L 21.0-32.0 [facility] Globulin (S) [Mass/Vol] 3.2 g/dL 2.2-4.2 [facility] Lipase [Catalytic activity/Vol] 40 U/L 13-75 [facility] Comment on above: Please note:LIPASE r evised reference range effective 23. New Lipase methodology. Expected to produce lower values than the previous assay method. NEW Reference Range: 13 - 75 U/L Urea nitrogen/Creatinine [Mass ratio] 16.8 mg/mg 10-20 [facility] - Hematology and Cell countsOrdered By: Dr. Rios on 01-21-2023 Erythrocyte distribution width (RBC) [Entitic vol] 42.9 fL 35.1-43.9 [facility] Erythrocyte distribution width (RBC) [Ratio] 12.5 % 11.6-14.6 [facility] Immature granulocytes/100 WBC (Bld) 0.800 % 0.0-0.9 [facility] Comment on above: IG% - Immature Granu locytes (promyelocytes, myelocytes and metamyelocytes) > 1% indicates that a LEFT SHIFT is Present. MCH (RBC) [Entitic mass] 31.9 pg 27.0-32.0 [facility] Nucleated RBC/100 WBC (Bld) [Ratio] 0 % 0-5 [facility] MCHC Auto (RBC) [Mass/Vol]Or dered By: Dr. Rios on 01-21-2023 MCHC (RBC) [Mass/Vol] 34.1 g/dL 32-36 [facility] Mucus LM Ql (Urine sed)Order ed By: Dr. Rios on 01-21-2023 Mucus Ql (Urine sed) 0 SEEN /hpf [facility] Nitrite Test strip Ql (U)Ord ered By: Dr. Rios on 01-21-2023 Nitrite Ql (U) Negative Negative [facility] No Panel InformationOrdered By: Dr. Rios on 01-21-2023 Estimated Creatinine Clearance Calc 74.47 ml/min [facility] Estimated GFR (MDRD) Amer 86 mL/min >60 [facility] Comment on above: GFR Calc Estimated GFR (MDRD) Non-Af Amer 71 mL/min >60 [facility] Comment on above: Non- GFR Calc 31.9 pg 27.0-32.0 [facility] 12.5 % 11.6-14.6 [facility] 42.9 fl 35.1-43.9 [facility] 0.800 % 0.0-0.9 [facility] 0 % 0-5 [facility] 71 mL/min >60 [facility] 86 mL/min >60 [facility] 74.47 ml/min [facility] 16.8 RATIO 10-20 [facility] 3.2 g/dL 2.2-4.2 [facility] 40 U/L 13-75 [facility] 81 U/L 45-117 [facility] 24 U/L 16-61 [facility] 25.0 mmol/L 21.0-32.0 [facility] Platelets bldOrdered By: Dr. Rios on 01-21-2023 Platelets (Bld) [#/Vol] 180 10*3/uL 150-450 [facility] Protein Test strip Ql (U)Ord ered By: Dr. Rios on 01-21-2023 Protein Ql (U) Negative Negative [facility] Serum or plasma albumin mc urement (mass/volume)Ordered By: Dr. Rios on 01-21-2023 Albumin [Mass/Vol] 3.2 g/dL 3.2-5.0 [facility] Serum or plasma albumin/glob ulin mass ratioOrdered By: Dr. Rios on 01-21-2023 Albumin/Globulin [Mass ratio] 1.0 {ratio} 0.9-2.4 [facility] Serum or plasma calcium mc urement (mass/volume)Ordered By: Dr. Rios on 01-21-2023 Calcium [Mass/Vol] 9.2 mg/dL 8.5-10.1 [facility] Serum or plasma creatinine m easurement (mass/volume)Ordered By: Dr. Rios on 01-21-2023 Creatinine [Mass/Vol] 1.13 mg/dL 0.70-1.30 [facility] Comment on above: The validity of the calculated GFR & GFRAA in patients over 70 years has not been determined. Clinical correlation is essential. Serum or plasma urea nitroge n measurement (mass/volume)Ordered By: Dr. Rios on 01-21-2023 Urea nitrogen [Mass/Vol] 19 mg/dL 7-18 [facility] Squamous epithelial cells de tection in urine sediment by light microscopyOrdered By: Dr. Rios on 01-21-2023 Epithelial cells.squamous LM Ql (Urine sed) 0 SEEN /hpf 0-5 [facility] Thin prep Papanicolaou smear with manual screeningOrdered By: Dr. Rios on 01-21-2023 Thin prep Papanicolaou smear with manual screening 15 U/L 15-37 [facility] Comment on above: Slight Hemolysis, Re sult may be falsely increased. Thin prep Papanicolaou smear with manual screening 8 5-15 [facility] Urine blood detectionOrdered By: Dr. Rios on 01-21-2023 RBC Ql (U) Negative Negative [facility] RBC Ql (U) 0 SEEN /hpf 0-5 [facility] Urine clarityOrdered By: Dr. Rios on 01-21-2023 Clarity (U) Clear Clear [facility] Urine color determinationOrd ered By: Dr. Rios on 01-21-2023 Color (U) Yellow Yellow [facility] Urine glucose detectionOrder ed By: Dr. Rios on 01-21-2023 Glucose Ql (U) 1000 mg/dl Normal [facility] Urine leukocyte esterase det ection by dipstickOrdered By: Dr. Rios on 01-21-2023 Leukocyte esterase Test strip Ql (U) Negative Negative [facility] Urine pHOrdered By: Dr. Edel cuadra on 01-21-2023 pH (U) 6.0 [pH] 5.0 - 8.0 [facility] Urine sediment bacteria coun t by microscopy (number/high power field)Ordered By: Dr. Rios on 01-21-2023 Bacteria LM.HPF (Urine sed) [#/Area] 0 /[HPF] None Seen [facility] Urine specific gravity measu rementOrdered By: Dr. Rios on 01-21-2023 Specific gravity (U) [Rel density] 1.020 1.002-1.03 0 [facility] Urobilinogen Auto test strip Ql (U)Ordered By: Dr. Rios on 01-21-2023 Urobilinogen Ql (U) Normal mg/dl Normal [facility] Absolute lymphocyte countOrd ered By: Dr. Gallagher on 12-26-2022 Lymphocytes Auto (Unsp spec) [#/Vol] 5.74 10*3/uL 0.83-4.51 [facility] Basophil percentageOrdered B y: Dr. Gallagher on 12-26-2022 Amylase [Catalytic activity/Vol] 57 U/L 25-115 [facility] Basophil percentage 310 mg/dL 74-106 [facility] Basophil percentage 7.3 g/dL 6.4-8.2 [facility] Basophil percentage 57 U/L 25-115 [facility] Basophil percentage 0.50 mg/dL 0.20-1.00 [facility] Basophil percentage 131 mmol/L 136-145 [facility] Basophil percentage 3.4 mmol/L 3.5-5.1 [facility] Basophil percentage 100 mmol/L 98-107 [facility] Basophils (Bld) [#/Vol] 13.0 10*3/uL 4.4-11.0 [facility] Basophils (Bld) [#/Vol] 6.2 10*3/uL 2.0-7.7 [facility] Basophils/100 WBC (Bld) 47.8 % 47-70 [facility] Basophils/100 WBC (Bld) 0.9 % 0-5 [facility] Basophils/100 WBC (Bld) 0.8 % 0-1 [facility] Bilirubin [Mass/Vol] 0.50 mg/dL 0.20-1.00 [facility] Comment on above: For patients on eltr ombopag therapy, use of Dimension [place] TBIL is not recommended. Chloride [Moles/Vol] 100 mmol/L 98-107 [facility] Eosinophils/100 WBC (Bld) 0.9 % 0-5 [facility] Glucose [Mass/Vol] 310 mg/dL 74-106 [facility] Comment on above: Glucose result great er than or equal to 200 mg/dLsuggests DIABETES MELLITUS per A.D.A. criteria. Neutrophils (Bld) [#/Vol] 6.2 10*3/uL 2.0-7.7 [facility] Neutrophils/100 WBC (Bld) 47.8 % 47-70 [facility] Potassium [Moles/Vol] 3.4 mmol/L 3.5-5.1 [facility] Protein [Mass/Vol] 7.3 g/dL 6.4-8.2 [facility] Sodium [Moles/Vol] 131 mmol/L 136-145 [facility] WBC (Bld) [#/Vol] 13.0 10*3/uL 4.4-11.0 [facility] Blood erythrocytes count (nu mber/volume)Ordered By: Dr. Gallagher on 12-26-2022 RBC (Bld) [#/Vol] 4.44 10*6/uL 4.6-6.2 [facility] Blood hemoglobin measurement (mass/volume)Ordered By: Dr. Gallagher on 12-26-2022 Hemoglobin (Bld) [Mass/Vol] 14.3 g/dL 13.0-16.5 [facility] Blood lymphocytes/100 leukoc ytesOrdered By: Dr. Gallagher on 12-26-2022 Lymphocytes/100 WBC (Bld) 44.2 % 19-41 [facility] Blood monocytes/100 leukocyt esOrdered By: Dr. Gallagher on 12-26-2022 Monocytes/100 WBC (Bld) 5.2 % 0-10 [facility] Blood platelet mean volumeOr dered By: Dr. Gallagher on 12-26-2022 Platelet mean volume (Bld) [Entitic vol] 10.0 fL 6.2-12.0 [facility] Determination of erythrocyte mean corpuscular volume (MCV)Ordered By: Dr. Gallagher on 12-26-2022 MCV (RBC) [Entitic vol] 91.4 fL 80-94 [facility] Hematocrit Auto (Bld) [Volum e fraction]Ordered By: Dr. Gallagher on 12-26-2022 Hematocrit (Bld) [Volume fraction] 40.6 % 40-54 [facility] - Chemistry and C hemistry - challengeOrdered By: Dr. Gallagher on 12-26-2022 ALP [Catalytic activity/Vol] 67 U/L 45-117 [facility] ALT [Catalytic activity/Vol] 25 U/L 16-61 [facility] CO2 [Moles/Vol] 20.0 mmol/L 21.0-32.0 [facility] Globulin (S) [Mass/Vol] 3.6 g/dL 2.2-4.2 [facility] Lipase [Catalytic activity/Vol] 645 U/L 73-393 [facility] Urea nitrogen/Creatinine [Mass ratio] 14.2 mg/mg 10-20 [facility] - Hematology and Cell countsOrdered By: Dr. Gallagher on 12-26-2022 Erythrocyte distribution width (RBC) [Entitic vol] 40.6 fL 35.1-43.9 [facility] Erythrocyte distribution width (RBC) [Ratio] 12.1 % 11.6-14.6 [facility] Immature granulocytes/100 WBC (Bld) 1.100 % 0.0-0.9 [facility] Comment on above: IG% - Immature Granu locytes (promyelocytes, myelocytes and metamyelocytes) > 1% indicates that a LEFT SHIFT is Present. MCH (RBC) [Entitic mass] 32.2 pg 27.0-32.0 [facility] Nucleated RBC/100 WBC (Bld) [Ratio] 0 % 0-5 [facility] MCHC Auto (RBC) [Mass/Vol]Or dered By: Dr. Gallagher on 12-26-2022 MCHC (RBC) [Mass/Vol] 35.2 g/dL 32-36 [facility] No Panel InformationOrdered By: Dr. Gallagher on 12-26-2022 Estimated Creatinine Clearance Calc 74.47 ml/min [facility] Estimated GFR (MDRD) Amer 86 mL/min >60 [facility] Comment on above: GFR Calc Estimated GFR (MDRD) Non-Af Amer 71 mL/min >60 [facility] Comment on above: Non- GFR Calc 32.2 pg 27.0-32.0 [facility] 12.1 % 11.6-14.6 [facility] 40.6 fl 35.1-43.9 [facility] 1.100 % 0.0-0.9 [facility] 0 % 0-5 [facility] 71 mL/min >60 [facility] 86 mL/min >60 [facility] 74.47 ml/min [facility] 14.2 RATIO 10-20 [facility] 3.6 g/dL 2.2-4.2 [facility] 645 U/L 73-393 [facility] 67 U/L 45-117 [facility] 25 U/L 16-61 [facility] 20.0 mmol/L 21.0-32.0 [facility] Platelets bldOrdered By: Dr. Gallagher on 12-26-2022 Platelets (Bld) [#/Vol] 219 10*3/uL 150-450 [facility] Serum or plasma albumin mc urement (mass/volume)Ordered By: Dr. Gallagher on 12-26-2022 Albumin [Mass/Vol] 3.7 g/dL 3.2-5.0 [facility] Serum or plasma albumin/glob ulin mass ratioOrdered By: Dr. Gallagher on 12-26-2022 Albumin/Globulin [Mass ratio] 1.0 {ratio} 0.9-2.4 [facility] Serum or plasma calcium mc urement (mass/volume)Ordered By: Dr. Gallagher on 12-26-2022 Calcium [Mass/Vol] 9.7 mg/dL 8.5-10.1 [facility] Serum or plasma creatinine m easurement (mass/volume)Ordered By: Dr. Gallagher on 12-26-2022 Creatinine [Mass/Vol] 1.13 mg/dL 0.70-1.30 [facility] Comment on above: The validity of the calculated GFR & GFRAA in patients over 70 years has not been determined. Clinical correlation is essential. Serum or plasma urea nitroge n measurement (mass/volume)Ordered By: Dr. Gallagher on 12-26-2022 Urea nitrogen [Mass/Vol] 16 mg/dL 7-18 [facility] Thin prep Papanicolaou smear with manual screeningOrdered By: Dr. Gallagher on 12-26-2022 Thin prep Papanicolaou smear with manual screening 21 U/L 15-37 [facility] Thin prep Papanicolaou smear with manual screening 11 5-15 [facility] STREP A MOLECULAR (POC)on Procedural Control Valid [place] [facility] Strep A (POCT) Negative Negative [facility] Basophil percentageOrdered B y: Dr. Cherry on 12-14-2022 Basophil percentage 2.3 mmol/L 0.4-2.0 [facility] Lactate [Moles/Vol] 2.3 mmol/L 0.4-2.0 [facility] Comment on above: Critical Result(s) C alled at: 03:15:52 12/14/2022 by: GELY Martinez [employer]PERVIS[employer]. Results read back by same. Glucose Glucometer (BldC) [M ass/Vol]Ordered By: Dr. Cherry on 12-14-2022 Glucose [Mass/Vol] 370 mg/dL 74-106 [facility] Comment on above: MANAGEMENT OF PATIEN T CARE PER NURSING PROTOCOL Serum or plasma acetone mc urement (mass/volume)Ordered By: Dr. Cherry on 12-14-2022 Acetone [Mass/Vol] Negative NEG [facility] Absolute lymphocyte countOrd ered By: Dr. Cherry on 12-13-2022 Lymphocytes Auto (Unsp spec) [#/Vol] 2.12 10*3/uL 0.83-4.51 [facility] Basophil percentageOrdered B y: Dr. Cherry on 12-13-2022 Basophil percentage 426 mg/dL 74-106 [facility] Basophil percentage 8.1 g/dL 6.4-8.2 [facility] Basophil percentage 0.40 mg/dL 0.20-1.00 [facility] Basophil percentage 133 mmol/L 136-145 [facility] Basophil percentage 3.7 mmol/L 3.5-5.1 [facility] Basophil percentage 97 mmol/L 98-107 [facility] Basophils (Bld) [#/Vol] 20.5 10*3/uL 4.4-11.0 [facility] Basophils (Bld) [#/Vol] 17.6 10*3/uL 2.0-7.7 [facility] Basophils/100 WBC (Bld) 0.3 % 0-1 [facility] Basophils/100 WBC (Bld) 85.9 % 47-70 [facility] Basophils/100 WBC (Bld) 0.0 % 0-5 [facility] Bilirubin [Mass/Vol] 0.40 mg/dL 0.20-1.00 [facility] Comment on above: For patients on eltr ombopag therapy, use of Dimension [place] TBIL is not recommended. Chloride [Moles/Vol] 97 mmol/L 98-107 [facility] Eosinophils/100 WBC (Bld) 0.0 % 0-5 [facility] Glucose [Mass/Vol] 426 mg/dL 74-106 [facility] Comment on above: Glucose result great er than or equal to 200 mg/dLsuggests DIABETES MELLITUS per A.D.A. criteria. Neutrophils (Bld) [#/Vol] 17.6 10*3/uL 2.0-7.7 [facility] Neutrophils/100 WBC (Bld) 85.9 % 47-70 [facility] Potassium [Moles/Vol] 3.7 mmol/L 3.5-5.1 [facility] Protein [Mass/Vol] 8.1 g/dL 6.4-8.2 [facility] Sodium [Moles/Vol] 133 mmol/L 136-145 [facility] WBC (Bld) [#/Vol] 20.5 10*3/uL 4.4-11.0 [facility] Blood erythrocytes count (nu mber/volume)Ordered By: Dr. Cherry on 12-13-2022 RBC (Bld) [#/Vol] 4.50 10*6/uL 4.6-6.2 [facility] Blood hemoglobin measurement (mass/volume)Ordered By: Dr. Cherry on 12-13-2022 Hemoglobin (Bld) [Mass/Vol] 14.3 g/dL 13.0-16.5 [facility] Blood lymphocytes/100 leukoc ytesOrdered By: Dr. Cherry on 12-13-2022 Lymphocytes/100 WBC (Bld) 10.3 % 19-41 [facility] Blood monocytes/100 leukocyt esOrdered By: Dr. Cherry on 12-13-2022 Monocytes/100 WBC (Bld) 2.4 % 0-10 [facility] Blood platelet mean volumeOr dered By: Dr. Cherry on 12-13-2022 Platelet mean volume (Bld) [Entitic vol] 10.3 fL 6.2-12.0 [facility] Determination of erythrocyte mean corpuscular volume (MCV)Ordered By: Dr. Cherry on 12-13-2022 MCV (RBC) [Entitic vol] 91.6 fL 80-94 [facility] Hematocrit Auto (Bld) [Volum e fraction]Ordered By: Dr. Cherry on 12-13-2022 Hematocrit (Bld) [Volume fraction] 41.2 % 40-54 [facility] - Chemistry and C hemistry - challengeOrdered By: Dr. Cherry on 12-13-2022 ALP [Catalytic activity/Vol] 89 U/L 45-117 [facility] ALT [Catalytic activity/Vol] 21 U/L 16-61 [facility] CO2 [Moles/Vol] 19.0 mmol/L 21.0-32.0 [facility] Globulin (S) [Mass/Vol] 4.1 g/dL 2.2-4.2 [facility] Lipase [Catalytic activity/Vol] 458 U/L 73-393 [facility] Urea nitrogen/Creatinine [Mass ratio] 14.2 mg/mg 10-20 [facility] - Hematology and Cell countsOrdered By: Dr. Cherry on 12-13-2022 Erythrocyte distribution width (RBC) [Entitic vol] 40.3 fL 35.1-43.9 [facility] Erythrocyte distribution width (RBC) [Ratio] 11.9 % 11.6-14.6 [facility] Immature granulocytes/100 WBC (Bld) 1.100 % 0.0-0.9 [facility] Comment on above: IG% - Immature Granu locytes (promyelocytes, myelocytes and metamyelocytes) > 1% indicates that a LEFT SHIFT is Present. MCH (RBC) [Entitic mass] 31.8 pg 27.0-32.0 [facility] Nucleated RBC/100 WBC (Bld) [Ratio] 0 % 0-5 [facility] MCHC Auto (RBC) [Mass/Vol]Or dered By: Dr. Cherry on 12-13-2022 MCHC (RBC) [Mass/Vol] 34.7 g/dL 32-36 [facility] No Panel InformationOrdered By: Dr. Cherry on 12-13-2022 Estimated Creatinine Clearance Calc 62.80 ml/min [facility] Estimated GFR (MDRD) Amer 71 mL/min >60 [facility] Comment on above: GFR Calc Estimated GFR (MDRD) Non-Af Amer 58 mL/min >60 [facility] Comment on above: Non- GFR Calc Troponin I High Sensitivity 8 pg/mL 3.0-78.0 [facility] Comment on above: Please Note: New [place] t Units and Gender Specific Reference Ranges. For more information see Policy Stat Procedure [place] High Sensitivity Troponin (TNIH) and attachments. 31.8 pg 27.0-32.0 [facility] 11.9 % 11.6-14.6 [facility] 40.3 fl 35.1-43.9 [facility] 1.100 % 0.0-0.9 [facility] 0 % 0-5 [facility] 58 mL/min >60 [facility] 71 mL/min >60 [facility] 62.80 ml/min [facility] 14.2 RATIO 10-20 [facility] 4.1 g/dL 2.2-4.2 [facility] 458 U/L 73-393 [facility] 8 pg/mL 3.0-78.0 [facility] 89 U/L 45-117 [facility] 21 U/L 16-61 [facility] 19.0 mmol/L 21.0-32.0 [facility] Platelets bldOrdered By: Dr. Cherry on 12-13-2022 Platelets (Bld) [#/Vol] 229 10*3/uL 150-450 [facility] Serum or plasma albumin mc urement (mass/volume)Ordered By: Dr. Cherry on 12-13-2022 Albumin [Mass/Vol] 4.0 g/dL 3.2-5.0 [facility] Serum or plasma albumin/glob ulin mass ratioOrdered By: Dr. Cherry on 12-13-2022 Albumin/Globulin [Mass ratio] 1.0 {ratio} 0.9-2.4 [facility] Serum or plasma calcium mc urement (mass/volume)Ordered By: Dr. Cherry on 12-13-2022 Calcium [Mass/Vol] 9.8 mg/dL 8.5-10.1 [facility] Serum or plasma creatinine m easurement (mass/volume)Ordered By: Dr. Cherry on 12-13-2022 Creatinine [Mass/Vol] 1.34 mg/dL 0.70-1.30 [facility] Comment on above: The validity of the calculated GFR & GFRAA in patients over 70 years has not been determined. Clinical correlation is essential. Serum or plasma urea nitroge n measurement (mass/volume)Ordered By: Dr. Cherry on 12-13-2022 Urea nitrogen [Mass/Vol] 19 mg/dL 7-18 [facility] Thin prep Papanicolaou smear with manual screeningOrdered By: Dr. Cherry on 12-13-2022 Thin prep Papanicolaou smear with manual screening 8 U/L 15-37 [facility] Thin prep Papanicolaou smear with manual screening 17 5-15 [facility] Absolute lymphocyte countOrd ered By: Dr. Tidwell on 12-02-2022 Lymphocytes Auto (Unsp spec) [#/Vol] 3.76 10*3/uL 0.83-4.51 [facility] Basophil percentageOrdered B y: Taras Santamaria on 12-02-2022 Amylase [Catalytic activity/Vol] 63 U/L 25-115 [facility] Basophil percentage 63 U/L 25-115 [facility] Basophil percentageOrdered B y: Dr. Tidwell on 12-02-2022 Basophil percentage 127 mg/dL 74-106 [facility] Basophil percentage 6.9 g/dL 6.4-8.2 [facility] Basophil percentage 0.70 mg/dL 0.20-1.00 [facility] Basophil percentage 139 mmol/L 136-145 [facility] Basophil percentage 3.4 mmol/L 3.5-5.1 [facility] Basophil percentage 107 mmol/L 98-107 [facility] Basophils (Bld) [#/Vol] 11.9 10*3/uL 4.4-11.0 [facility] Basophils (Bld) [#/Vol] 7.3 10*3/uL 2.0-7.7 [facility] Basophils/100 WBC (Bld) 0.2 % 0-1 [facility] Basophils/100 WBC (Bld) 61.1 % 47-70 [facility] Bilirubin [Mass/Vol] 0.70 mg/dL 0.20-1.00 [facility] Comment on above: For patients on eltr ombopag therapy, use of Dimension [place] TBIL is not recommended. Chloride [Moles/Vol] 107 mmol/L 98-107 [facility] Eosinophils/100 WBC (Bld) 0.2 % 0-5 [facility] Glucose [Mass/Vol] 127 mg/dL 74-106 [facility] Comment on above: Fasting Glucose resu lt greater than or equal to 126 mg/dL suggests DIABETES MELLITUS per A.D.A. criteria. Neutrophils (Bld) [#/Vol] 7.3 10*3/uL 2.0-7.7 [facility] Neutrophils/100 WBC (Bld) 61.1 % 47-70 [facility] Potassium [Moles/Vol] 3.4 mmol/L 3.5-5.1 [facility] Protein [Mass/Vol] 6.9 g/dL 6.4-8.2 [facility] Sodium [Moles/Vol] 139 mmol/L 136-145 [facility] WBC (Bld) [#/Vol] 11.9 10*3/uL 4.4-11.0 [facility] Blood erythrocytes count (nu mber/volume)Ordered By: Dr. Tidwell on 12-02-2022 RBC (Bld) [#/Vol] 3.71 10*6/uL 4.6-6.2 [facility] Blood hemoglobin measurement (mass/volume)Ordered By: Dr. Tidwell on 12-02-2022 Hemoglobin (Bld) [Mass/Vol] 11.9 g/dL 13.0-16.5 [facility] Blood lymphocytes/100 leukoc ytesOrdered By: Dr. Tidwell on 12-02-2022 Lymphocytes/100 WBC (Bld) 31.5 % 19-41 [facility] Blood monocytes/100 leukocyt esOrdered By: Dr. Tidwell on 12-02-2022 Monocytes/100 WBC (Bld) 6.7 % 0-10 [facility] Blood platelet mean volumeOr dered By: Dr. Tidwell on 12-02-2022 Platelet mean volume (Bld) [Entitic vol] 9.4 fL 6.2-12.0 [facility] Determination of erythrocyte mean corpuscular volume (MCV)Ordered By: Dr. Tidwell on 12-02-2022 MCV (RBC) [Entitic vol] 91.9 fL 80-94 [facility] Erythrocyte sedimentation ra teOrdered By: Taras Santamaria on 12-02-2022 ESR (Bld) [Velocity] 19 mm/h 0-20 [facility] Glucose Glucometer (dC) [M ass/Vol]Ordered By: Dr. Tidwell on 12-02-2022 Glucose [Mass/Vol] 210 mg/dL 74-106 [facility] Comment on above: MANAGEMENT OF PATIEN T CARE PER NURSING PROTOCOL Hematocrit Auto (Bld) [Volum e fraction]Ordered By: Dr. Tidwell on 12-02-2022 Hematocrit (Bld) [Volume fraction] 34.1 % 40-54 [facility] - Chemistry and C hemistry - challengeOrdered By: Dr. Tidwell on 12-02-2022 ALP [Catalytic activity/Vol] 52 U/L 45-117 [facility] ALT [Catalytic activity/Vol] 19 U/L 16-61 [facility] CO2 [Moles/Vol] 25.0 mmol/L 21.0-32.0 [facility] Globulin (S) [Mass/Vol] 3.5 g/dL 2.2-4.2 [facility] Urea nitrogen/Creatinine [Mass ratio] 9.2 mg/mg 10-20 [facility] - Chemistry and C hemistry - challengeOrdered By: Taras Santamaria on 12-02-2022 Lipase [Catalytic activity/Vol] 482 U/L 73-393 [facility] - Hematology and Cell countsOrdered By: Dr. Tidwell on 12-02-2022 Erythrocyte distribution width (RBC) [Entitic vol] 41.1 fL 35.1-43.9 [facility] Erythrocyte distribution width (RBC) [Ratio] 12.3 % 11.6-14.6 [facility] Immature granulocytes/100 WBC (Bld) 0.300 % 0.0-0.9 [facility] Comment on above: IG% - Immature Granu locytes (promyelocytes, myelocytes and metamyelocytes) > 1% indicates that a LEFT SHIFT is Present. MCH (RBC) [Entitic mass] 32.1 pg 27.0-32.0 [facility] Nucleated RBC/100 WBC (Bld) [Ratio] 0 % 0-5 [facility] MCHC Auto (RBC) [Mass/Vol]Or dered By: Dr. Tidwell on 12-02-2022 MCHC (RBC) [Mass/Vol] 34.9 g/dL 32-36 [facility] No Panel InformationOrdered By: Dr. Tidwell on 12-02-2022 Estimated Creatinine Clearance Calc 96.73 ml/min [facility] Estimated GFR (MDRD) Amer 116 mL/min >60 [facility] Comment on above: GFR Calc Estimated GFR (MDRD) Non-Af Amer 96 mL/min >60 [facility] Comment on above: Non- GFR Calc 32.1 pg 27.0-32.0 [facility] 12.3 % 11.6-14.6 [facility] 41.1 fl 35.1-43.9 [facility] 0.300 % 0.0-0.9 [facility] 0 % 0-5 [facility] 96 mL/min >60 [facility] 116 mL/min >60 [facility] 96.73 ml/min [facility] 9.2 RATIO 10-20 [facility] 3.5 g/dL 2.2-4.2 [facility] 52 U/L 45-117 [facility] 19 U/L 16-61 [facility] 25.0 mmol/L 21.0-32.0 [facility] No Panel InformationOrdered By: Taras Santamaria on 12-02-2022 482 U/L 73-393 [facility] Platelets bldOrdered By: Dr. Tidwell on 12-02-2022 Platelets (Bld) [#/Vol] 154 10*3/uL 150-450 [facility] Serum or plasma C reactive p rotein measurement (mass/volume)Ordered By: Taras Santamaria on 12-02-2022 CRP [Mass/Vol] 12.50 mg/L 0.0-3.0 [facility] Comment on above: C-Reactive Protein ( CRP) provides useful information for thediagnosis, therapy and monitoring of inflammatory processesand associated diseases. For the evaluation of Relative Riskfor Cardiovascular Disease, a High Sensitivity CRP (HSCRP)should be ordered. Serum or plasma albumin mc urement (mass/volume)Ordered By: Dr. Tidwell on 12-02-2022 Albumin [Mass/Vol] 3.4 g/dL 3.2-5.0 [facility] Serum or plasma albumin/glob ulin mass ratioOrdered By: Dr. Tidwell on 12-02-2022 Albumin/Globulin [Mass ratio] 1.0 {ratio} 0.9-2.4 [facility] Serum or plasma calcium mc urement (mass/volume)Ordered By: Dr. Tidwell on 12-02-2022 Calcium [Mass/Vol] 8.4 mg/dL 8.5-10.1 [facility] Serum or plasma creatinine m easurement (mass/volume)Ordered By: Dr. Tidwell on 12-02-2022 Creatinine [Mass/Vol] 0.87 mg/dL 0.70-1.30 [facility] Comment on above: The validity of the calculated GFR & GFRAA in patients over 70 years has not been determined. Clinical correlation is essential. Serum or plasma urea nitroge n measurement (mass/volume)Ordered By: Dr. Tidwell on 12-02-2022 Urea nitrogen [Mass/Vol] 8 mg/dL 7-18 [facility] Thin prep Papanicolaou smear with manual screeningOrdered By: Dr. Tidwell on 12-02-2022 Thin prep Papanicolaou smear with manual screening 11 U/L 15-37 [facility] Thin prep Papanicolaou smear with manual screening 7 5-15 [facility] No Panel InformationOrdered By: Dr. Mroa on 11-29-2022 Ethyl Alcohol Level < 3.0 mg/dL [facility] Comment on above: The serum:whole bloo d ethanol ratio is approximately 1.14and varies slightly with hematocrit. Medical Alcohol reference interval and critical value innon-tolerant individuals; 50 - 100 Impairment 100 Intoxication 100 - 250 Severe Poisoning 250 - 400 Deep/possible fatal coma < 3.0 mg/dL [facility] Absolute lymphocyte countOrd ered By: Dr. Mora on 11-28-2022 Lymphocytes Auto (Unsp spec) [#/Vol] 2.22 10*3/uL 0.83-4.51 [facility] Basophil percentageOrdered B y: Dr. Pedraza on 11-28-2022 Basophil percentage 3.3 mg/dL 2.5-4.9 [facility] Basophil percentageOrdered B y: Dr. Mora on 11-28-2022 Basophils/100 WBC (Bld) 0.4 % 0-1 [facility] Bilirubin [Mass/Vol] 0.80 mg/dL 0.20-1.00 [facility] Comment on above: For patients on eltr ombopag therapy, use of Dimension [place] TBIL is not recommended. Chloride [Moles/Vol] 100 mmol/L 98-107 [facility] Eosinophils/100 WBC (Bld) 0.6 % 0-5 [facility] Glucose [Mass/Vol] 223 mg/dL 74-106 [facility] Comment on above: Glucose result great er than or equal to 200 mg/dLsuggests DIABETES MELLITUS per A.D.A. criteria. Neutrophils (Bld) [#/Vol] 12.4 10*3/uL 2.0-7.7 [facility] Neutrophils/100 WBC (Bld) 78.1 % 47-70 [facility] Potassium [Moles/Vol] 3.5 mmol/L 3.5-5.1 [facility] Protein [Mass/Vol] 8.3 g/dL 6.4-8.2 [facility] Sodium [Moles/Vol] 134 mmol/L 136-145 [facility] WBC (Bld) [#/Vol] 15.9 10*3/uL 4.4-11.0 [facility] Blood erythrocytes count (nu mber/volume)Ordered By: Dr. Mora on 11-28-2022 RBC (Bld) [#/Vol] 4.64 10*6/uL 4.6-6.2 [facility] Blood hemoglobin measurement (mass/volume)Ordered By: Dr. Mora on 11-28-2022 Hemoglobin (Bld) [Mass/Vol] 14.9 g/dL 13.0-16.5 [facility] Blood lymphocytes/100 leukoc ytesOrdered By: Dr. Mora on 11-28-2022 Lymphocytes/100 WBC (Bld) 14.0 % 19-41 [facility] Blood monocytes/100 leukocyt esOrdered By: Dr. Mora on 11-28-2022 Monocytes/100 WBC (Bld) 6.5 % 0-10 [facility] Blood platelet mean volumeOr dered By: Dr. Mora on 11-28-2022 Platelet mean volume (Bld) [Entitic vol] 9.4 fL 6.2-12.0 [facility] Determination of erythrocyte mean corpuscular volume (MCV)Ordered By: Dr. Mora on 11-28-2022 MCV (RBC) [Entitic vol] 90.7 fL 80-94 [facility] Hematocrit Auto (Bld) [Volum e fraction]Ordered By: Dr. Mora on 11-28-2022 Hematocrit (Bld) [Volume fraction] 42.1 % 40-54 [facility] - Chemistry and C hemistry - challengeOrdered By: Dr. Mora on 11-28-2022 ALP [Catalytic activity/Vol] 71 U/L 45-117 [facility] ALT [Catalytic activity/Vol] 20 U/L 16-61 [facility] CO2 [Moles/Vol] 26.0 mmol/L 21.0-32.0 [facility] Globulin (S) [Mass/Vol] 4.0 g/dL 2.2-4.2 [facility] Lipase [Catalytic activity/Vol] 2513 U/L 73-393 [facility] Urea nitrogen/Creatinine [Mass ratio] 12.8 mg/mg 10-20 [facility] - Chemistry and C hemistry - challengeOrdered By: Dr. Pedraza on 11-28-2022 Magnesium [Mass/Vol] 1.6 mg/dL 1.6-2.6 [facility] Laboratory - Hematology and Cell countsOrdered By: Dr. Mora on 11-28-2022 Erythrocyte distribution width (RBC) [Entitic vol] 39.1 fL 35.1-43.9 [facility] Erythrocyte distribution width (RBC) [Ratio] 11.8 % 11.6-14.6 [facility] Immature granulocytes/100 WBC (Bld) 0.400 % 0.0-0.9 [facility] Comment on above: IG% - Immature Granu locytes (promyelocytes, myelocytes and metamyelocytes) > 1% indicates that a LEFT SHIFT is Present. MCH (RBC) [Entitic mass] 32.1 pg 27.0-32.0 [facility] Nucleated RBC/100 WBC (Bld) [Ratio] 0.1 % 0-5 [facility] MCHC Auto (RBC) [Mass/Vol]Or dered By: Dr. Mora on 11-28-2022 MCHC (RBC) [Mass/Vol] 35.4 g/dL 32-36 [facility] No Panel InformationOrdered By: Dr. Mora on 11-28-2022 Estimated Creatinine Clearance Calc 71.93 ml/min [facility] Estimated GFR (MDRD) Amer 82 mL/min >60 [facility] Comment on above: GFR Calc Estimated GFR (MDRD) Non-Af Amer 68 mL/min >60 [facility] Comment on above: Non- GFR Calc No Panel InformationOrdered By: Dr. Pedarza on 11-28-2022 1.6 mg/dL 1.6-2.6 [facility] Platelets bldOrdered By: Dr. Mora on 11-28-2022 Platelets (Bld) [#/Vol] 225 10*3/uL 150-450 [facility] Serum or plasma albumin mc urement (mass/volume)Ordered By: Dr. Mora on 11-28-2022 Albumin [Mass/Vol] 4.3 g/dL 3.2-5.0 [facility] Serum or plasma albumin/glob ulin mass ratioOrdered By: Dr. Mora on 11-28-2022 Albumin/Globulin [Mass ratio] 1.1 {ratio} 0.9-2.4 [facility] Serum or plasma calcium mc urement (mass/volume)Ordered By: Dr. Mora on 11-28-2022 Calcium [Mass/Vol] 9.9 mg/dL 8.5-10.1 [facility] Serum or plasma creatinine m easurement (mass/volume)Ordered By: Dr. Mora on 11-28-2022 Creatinine [Mass/Vol] 1.17 mg/dL 0.70-1.30 [facility] Comment on above: The validity of the calculated GFR & GFRAA in patients over 70 years has not been determined. Clinical correlation is essential. Serum or plasma urea nitroge n measurement (mass/volume)Ordered By: Dr. Mora on 11-28-2022 Urea nitrogen [Mass/Vol] 15 mg/dL 7-18 [facility] Thin prep Papanicolaou smear with manual screeningOrdered By: Dr. Mora on 11-28-2022 Thin prep Papanicolaou smear with manual screening 13 U/L 15-37 [facility] Thin prep Papanicolaou smear with manual screening 8 5-15 [facility] Absolute lymphocyte countOrd ered By: Dr. Mora on 11-09-2022 Lymphocytes Auto (Unsp spec) [#/Vol] 2.61 10*3/uL 0.83-4.51 [facility] Basophil percentageOrdered B y: Dr. Mora on 11-09-2022 Basophil percentage 346 mg/dL 74-106 [facility] Basophil percentage 8.1 g/dL 6.4-8.2 [facility] Basophil percentage 0.70 mg/dL 0.20-1.00 [facility] Basophil percentage 139 mmol/L 136-145 [facility] Basophil percentage 4.0 mmol/L 3.5-5.1 [facility] Basophil percentage 104 mmol/L 98-107 [facility] Basophils (Bld) [#/Vol] 12.0 10*3/uL 4.4-11.0 [facility] Basophils (Bld) [#/Vol] 8.4 10*3/uL 2.0-7.7 [facility] Basophils/100 WBC (Bld) 0.5 % 0-1 [facility] Basophils/100 WBC (Bld) 70.1 % 47-70 [facility] Basophils/100 WBC (Bld) 1.1 % 0-5 [facility] Bilirubin [Mass/Vol] 0.70 mg/dL 0.20-1.00 [facility] Comment on above: For patients on eltr ombopag therapy, use of Dim[place] TBIL is not recommended. Chloride [Moles/Vol] 104 mmol/L 98-107 [facility] Eosinophils/100 WBC (Bld) 1.1 % 0-5 [facility] Glucose [Mass/Vol] 346 mg/dL 74-106 [facility] Comment on above: Glucose result great er than or equal to 200 mg/dLsuggests DIABETES MELLITUS per A.D.A. criteria. Neutrophils (Bld) [#/Vol] 8.4 10*3/uL 2.0-7.7 [facility] Neutrophils/100 WBC (Bld) 70.1 % 47-70 [facility] Potassium [Moles/Vol] 4.0 mmol/L 3.5-5.1 [facility] Protein [Mass/Vol] 8.1 g/dL 6.4-8.2 [facility] Sodium [Moles/Vol] 139 mmol/L 136-145 [facility] WBC (Bld) [#/Vol] 12.0 10*3/uL 4.4-11.0 [facility] Blood erythrocytes count (nu mber/volume)Ordered By: Dr. Mora on 11-09-2022 RBC (Bld) [#/Vol] 4.40 10*6/uL 4.6-6.2 [facility] Blood hemoglobin measurement (mass/volume)Ordered By: Dr. Mora on 11-09-2022 Hemoglobin (Bld) [Mass/Vol] 13.8 g/dL 13.0-16.5 [facility] Blood lymphocytes/100 leukoc ytesOrdered By: Dr. Mora on 11-09-2022 Lymphocytes/100 WBC (Bld) 21.8 % 19-41 [facility] Blood monocytes/100 leukocyt esOrdered By: Dr. Mora on 11-09-2022 Monocytes/100 WBC (Bld) 6.2 % 0-10 [facility] Blood platelet mean volumeOr dered By: Dr. Mora on 11-09-2022 Platelet mean volume (Bld) [Entitic vol] 9.8 fL 6.2-12.0 [facility] Determination of erythrocyte mean corpuscular volume (MCV)Ordered By: Dr. Mora on 11-09-2022 MCV (RBC) [Entitic vol] 94.3 fL 80-94 [facility] Hematocrit Auto (Bld) [Volum e fraction]Ordered By: Dr. Mora on 11-09-2022 Hematocrit (Bld) [Volume fraction] 41.5 % 40-54 [facility] - Chemistry and C hemistry - challengeOrdered By: Dr. Mora on 11-09-2022 ALP [Catalytic activity/Vol] 69 U/L 45-117 [facility] ALT [Catalytic activity/Vol] 18 U/L 16-61 [facility] CO2 [Moles/Vol] 26.0 mmol/L 21.0-32.0 [facility] Globulin (S) [Mass/Vol] 3.7 g/dL 2.2-4.2 [facility] Lipase [Catalytic activity/Vol] 525 U/L 73-393 [facility] Magnesium [Mass/Vol] 2.1 mg/dL 1.6-2.6 [facility] Urea nitrogen/Creatinine [Mass ratio] 14.4 mg/mg 10-20 [facility] - Hematology and Cell countsOrdered By: Dr. Mora on 11-09-2022 Erythrocyte distribution width (RBC) [Entitic vol] 42.9 fL 35.1-43.9 [facility] Erythrocyte distribution width (RBC) [Ratio] 12.4 % 11.6-14.6 [facility] Immature granulocytes/100 WBC (Bld) 0.300 % 0.0-0.9 [facility] Comment on above: IG% - Immature Granu locytes (promyelocytes, myelocytes and metamyelocytes) > 1% indicates that a LEFT SHIFT is Present. MCH (RBC) [Entitic mass] 31.4 pg 27.0-32.0 [facility] Nucleated RBC/100 WBC (Bld) [Ratio] 0 % 0-5 [facility] MCHC Auto (RBC) [Mass/Vol]Or dered By: Dr. Mora on 11-09-2022 MCHC (RBC) [Mass/Vol] 33.3 g/dL 32-36 [facility] No Panel InformationOrdered By: Dr. Mora on 11-09-2022 Estimated Creatinine Clearance Calc 63.75 ml/min [facility] Estimated GFR (MDRD) Amer 72 mL/min >60 [facility] Comment on above: GFR Calc Estimated GFR (MDRD) Non-Af Amer 59 mL/min >60 [facility] Comment on above: Non- GFR Calc 31.4 pg 27.0-32.0 [facility] 12.4 % 11.6-14.6 [facility] 42.9 fl 35.1-43.9 [facility] 0.300 % 0.0-0.9 [facility] 0 % 0-5 [facility] 59 mL/min >60 [facility] 72 mL/min >60 [facility] 63.75 ml/min [facility] 14.4 RATIO 10-20 [facility] 3.7 g/dL 2.2-4.2 [facility] 525 U/L 73-393 [facility] 69 U/L 45-117 [facility] 18 U/L 16-61 [facility] 2.1 mg/dL 1.6-2.6 [facility] 26.0 mmol/L 21.0-32.0 [facility] Platelets bldOrdered By: Dr. Mora on 11-09-2022 Platelets (Bld) [#/Vol] 204 10*3/uL 150-450 [facility] Serum or plasma albumin mc urement (mass/volume)Ordered By: Dr. Mora on 11-09-2022 Albumin [Mass/Vol] 4.4 g/dL 3.2-5.0 [facility] Serum or plasma albumin/glob ulin mass ratioOrdered By: Dr. Mora on 11-09-2022 Albumin/Globulin [Mass ratio] 1.2 {ratio} 0.9-2.4 [facility] Serum or plasma calcium mc urement (mass/volume)Ordered By: Dr. Mora on 11-09-2022 Calcium [Mass/Vol] 9.4 mg/dL 8.5-10.1 [facility] Serum or plasma creatinine m easurement (mass/volume)Ordered By: Dr. Mora on 11-09-2022 Creatinine [Mass/Vol] 1.32 mg/dL 0.70-1.30 [facility] Comment on above: The validity of the calculated GFR & GFRAA in patients over 70 years has not been determined. Clinical correlation is essential. Serum or plasma urea nitroge n measurement (mass/volume)Ordered By: Dr. Mora on 11-09-2022 Urea nitrogen [Mass/Vol] 19 mg/dL 7-18 [facility] Thin prep Papanicolaou smear with manual screeningOrdered By: Dr. Mora on 11-09-2022 Thin prep Papanicolaou smear with manual screening 13 U/L 15-37 [facility] Thin prep Papanicolaou smear with manual screening 9 5-15 [facility] Absolute lymphocyte countOrd ered By: Dr. Harrell on 10-27-2022 Lymphocytes Auto (Unsp spec) [#/Vol] 2.93 10*3/uL 0.83-4.51 [facility] Basophil percentageOrdered B y: Dr. Harrell on 10-27-2022 Basophil percentage 153 mg/dL 74-106 [facility] Basophil percentage 7.0 g/dL 6.4-8.2 [facility] Basophil percentage 1.00 mg/dL 0.20-1.00 [facility] Basophil percentage 139 mmol/L 136-145 [facility] Basophil percentage 3.7 mmol/L 3.5-5.1 [facility] Basophil percentage 109 mmol/L 98-107 [facility] Basophils (Bld) [#/Vol] 10.5 10*3/uL 4.4-11.0 [facility] Basophils (Bld) [#/Vol] 6.5 10*3/uL 2.0-7.7 [facility] Basophils/100 WBC (Bld) 0.3 % 0-1 [facility] Basophils/100 WBC (Bld) 61.5 % 47-70 [facility] Basophils/100 WBC (Bld) 1.3 % 0-5 [facility] Bilirubin [Mass/Vol] 1.00 mg/dL 0.20-1.00 [facility] Comment on above: For patients on eltr ombopag therapy, use of Dimension [place] TBIL is not recommended. Chloride [Moles/Vol] 109 mmol/L 98-107 [facility] Eosinophils/100 WBC (Bld) 1.3 % 0-5 [facility] Glucose [Mass/Vol] 153 mg/dL 74-106 [facility] Comment on above: Fasting Glucose resu lt greater than or equal to 126 mg/dL suggests DIABETES MELLITUS per A.D.A. criteria. Neutrophils (Bld) [#/Vol] 6.5 10*3/uL 2.0-7.7 [facility] Neutrophils/100 WBC (Bld) 61.5 % 47-70 [facility] Potassium [Moles/Vol] 3.7 mmol/L 3.5-5.1 [facility] Protein [Mass/Vol] 7.0 g/dL 6.4-8.2 [facility] Sodium [Moles/Vol] 139 mmol/L 136-145 [facility] WBC (Bld) [#/Vol] 10.5 10*3/uL 4.4-11.0 [facility] Blood erythrocytes count (nu mber/volume)Ordered By: Dr. Harrell on 10-27-2022 RBC (Bld) [#/Vol] 3.71 10*6/uL 4.6-6.2 [facility] Blood hemoglobin measurement (mass/volume)Ordered By: Dr. Harrell on 10-27-2022 Hemoglobin (Bld) [Mass/Vol] 11.9 g/dL 13.0-16.5 [facility] Blood lymphocytes/100 leukoc ytesOrdered By: Dr. Harrell on 10-27-2022 Lymphocytes/100 WBC (Bld) 27.8 % 19-41 [facility] Blood monocytes/100 leukocyt esOrdered By: Dr. Harrell on 10-27-2022 Monocytes/100 WBC (Bld) 8.8 % 0-10 [facility] Blood platelet mean volumeOr dered By: Dr. Harrell on 10-27-2022 Platelet mean volume (Bld) [Entitic vol] 9.5 fL 6.2-12.0 [facility] Determination of erythrocyte mean corpuscular volume (MCV)Ordered By: Dr. Harrell on 10-27-2022 MCV (RBC) [Entitic vol] 94.6 fL 80-94 [facility] Glucose Glucometer (BldC) [M ass/Vol]Ordered By: Dr. Harrell on 10-27-2022 Glucose [Mass/Vol] 176 mg/dL 74-106 [facility] Comment on above: MANAGEMENT OF PATIEN T CARE PER NURSING PROTOCOL Hematocrit Auto (Bld) [Volum e fraction]Ordered By: Dr. Harrell on 10-27-2022 Hematocrit (Bld) [Volume fraction] 35.1 % 40-54 [facility] - Chemistry and C hemistry - challengeOrdered By: Dr. Harrell on 10-27-2022 ALP [Catalytic activity/Vol] 58 U/L 45-117 [facility] ALT [Catalytic activity/Vol] 16 U/L 16-61 [facility] CO2 [Moles/Vol] 22.0 mmol/L 21.0-32.0 [facility] Globulin (S) [Mass/Vol] 3.4 g/dL 2.2-4.2 [facility] Urea nitrogen/Creatinine [Mass ratio] 9.2 mg/mg 10-20 [facility] - Hematology and Cell countsOrdered By: Dr. Harrell on 10-27-2022 Erythrocyte distribution width (RBC) [Entitic vol] 44.3 fL 35.1-43.9 [facility] Erythrocyte distribution width (RBC) [Ratio] 12.8 % 11.6-14.6 [facility] Immature granulocytes/100 WBC (Bld) 0.300 % 0.0-0.9 [facility] Comment on above: IG% - Immature Granu locytes (promyelocytes, myelocytes and metamyelocytes) > 1% indicates that a LEFT SHIFT is Present. MCH (RBC) [Entitic mass] 32.1 pg 27.0-32.0 [facility] Nucleated RBC/100 WBC (Bld) [Ratio] 0 % 0-5 [facility] MCHC Auto (RBC) [Mass/Vol]Or dered By: Dr. Harrell on 10-27-2022 MCHC (RBC) [Mass/Vol] 33.9 g/dL 32-36 [facility] No Panel InformationOrdered By: Dr. Harrell on 10-27-2022 Estimated Creatinine Clearance Calc 96.73 ml/min [facility] Estimated GFR (MDRD) Amer 117 mL/min >60 [facility] Comment on above: GFR Calc Estimated GFR (MDRD) Non-Af Amer 97 mL/min >60 [facility] Comment on above: Non- GFR Calc 32.1 pg 27.0-32.0 [facility] 12.8 % 11.6-14.6 [facility] 44.3 fl 35.1-43.9 [facility] 0.300 % 0.0-0.9 [facility] 0 % 0-5 [facility] 97 mL/min >60 [facility] 117 mL/min >60 [facility] 96.73 ml/min [facility] 9.2 RATIO 10-20 [facility] 3.4 g/dL 2.2-4.2 [facility] 58 U/L 45-117 [facility] 16 U/L 16-61 [facility] 22.0 mmol/L 21.0-32.0 [facility] Platelets bldOrdered By: Dr. Harrell on 10-27-2022 Platelets (Bld) [#/Vol] 156 10*3/uL 150-450 [facility] Serum or plasma albumin mc urement (mass/volume)Ordered By: Dr. Harrell on 10-27-2022 Albumin [Mass/Vol] 3.6 g/dL 3.2-5.0 [facility] Serum or plasma albumin/glob ulin mass ratioOrdered By: Dr. Harrell on 10-27-2022 Albumin/Globulin [Mass ratio] 1.1 {ratio} 0.9-2.4 [facility] Serum or plasma calcium mc urement (mass/volume)Ordered By: Dr. Harrell on 10-27-2022 Calcium [Mass/Vol] 8.5 mg/dL 8.5-10.1 [facility] Serum or plasma creatinine m easurement (mass/volume)Ordered By: Dr. Harrell on 10-27-2022 Creatinine [Mass/Vol] 0.87 mg/dL 0.70-1.30 [facility] Comment on above: The validity of the calculated GFR & GFRAA in patients over 70 years has not been determined. Clinical correlation is essential. Serum or plasma urea nitroge n measurement (mass/volume)Ordered By: Dr. Harrell on 10-27-2022 Urea nitrogen [Mass/Vol] 8 mg/dL 7-18 [facility] Thin prep Papanicolaou smear with manual screeningOrdered By: Dr. Harrell on 10-27-2022 Thin prep Papanicolaou smear with manual screening 13 U/L 15-37 [facility] Thin prep Papanicolaou smear with manual screening 8 5-15 [facility] No Panel InformationOrdered By: Dr. Arteaga on 10-26-2022 Ethyl Alcohol Level < 3.0 mg/dL [facility] Comment on above: The serum:whole bloo d ethanol ratio is approximately 1.14and varies slightly with hematocrit. Medical Alcohol reference interval and critical value innon-tolerant individuals; 50 - 100 Impairment 100 Intoxication 100 - 250 Severe Poisoning 250 - 400 Deep/possible fatal coma < 3.0 mg/dL [facility] Absolute lymphocyte countOrd ered By: ED PROVIDER on 10-25-2022 Lymphocytes Auto (Unsp spec) [#/Vol] 2.83 10*3/uL 0.83-4.51 [facility] Basophil percentageOrdered B y: ED PROVIDER on 10-25-2022 Basophil percentage 0-5 SEEN /hpf 0-5 [facility] Basophils/100 WBC (Bld) 0.4 % 0-1 [facility] [facility] [Moles/Vol] 104 mmol/L 98-107 [facility] Eosinophils/100 WBC (Bld) 1.1 % 0-5 [facility] Glucose [Mass/Vol] 177 mg/dL 74-106 [facility] Comment on above: Fasting Glucose resu lt greater than or equal to 126 mg/dL suggests DIABETES MELLITUS per A.D.A. criteria. Neutrophils (Bld) [#/Vol] 11.5 10*3/uL 2.0-7.7 [facility] Neutrophils/100 WBC (Bld) 73.5 % 47-70 [facility] Potassium [Moles/Vol] 3.7 mmol/L 3.5-5.1 [facility] Sodium [Moles/Vol] 139 mmol/L 136-145 [facility] WBC (Bld) [#/Vol] 15.6 10*3/uL 4.4-11.0 [facility] Basophil percentageOrdered B y: Dr. Arteaga on 10-25-2022 Bilirubin [Mass/Vol] 0.60 mg/dL 0.20-1.00 [facility] Comment on above: For patients on eltr ombopag therapy, use of Dimension [place] TBIL is not recommended. Protein [Mass/Vol] 8.3 g/dL 6.4-8.2 [facility] Bilirubin Test strip Ql (U)O rdered By: ED PROVIDER on 10-25-2022 Bilirubin Ql (U) Negative Negative [facility] Blood erythrocytes count (nu mber/volume)Ordered By: ED PROVIDER on 10-25-2022 RBC (Bld) [#/Vol] 4.48 10*6/uL 4.6-6.2 [facility] Blood hemoglobin measurement (mass/volume)Ordered By: ED PROVIDER on 10-25-2022 Hemoglobin (Bld) [Mass/Vol] 14.1 g/dL 13.0-16.5 [facility] Blood lymphocytes/100 leukoc ytesOrdered By: ED PROVIDER on 10-25-2022 Lymphocytes/100 WBC (Bld) 18.1 % 19-41 [facility] Blood monocytes/100 leukocyt esOrdered By: ED PROVIDER on 10-25-2022 Monocytes/100 WBC (Bld) 6.5 % 0-10 [facility] Blood platelet mean volumeOr dered By: ED PROVIDER on 10-25-2022 Platelet mean volume (Bld) [Entitic vol] 9.7 fL 6.2-12.0 [facility] Determination of erythrocyte mean corpuscular volume (MCV)Ordered By: ED PROVIDER on 10-25-2022 MCV (RBC) [Entitic vol] 93.8 fL 80-94 [facility] Direct bilirubinOrdered By: Dr. Arteaga on 10-25-2022 Bilirubin.direct [Mass/Vol] 0.22 mg/dL 0.00-0.30 [facility] Hematocrit Auto (Bld) [Volum e fraction]Ordered By: ED PROVIDER on 10-25-2022 Hematocrit (Bld) [Volume fraction] 42.0 % 40-54 [facility] Ketones Test strip Ql (U)Ord ered By: ED PROVIDER on 10-25-2022 Ketones Ql (U) Negative Negative [facility] Laboratory - Chemistry and C hemistry - challengeOrdered By: Dr. Arteaga on 10-25-2022 ALP [Catalytic activity/Vol] 68 U/L 45-117 [facility] ALT [Catalytic activity/Vol] 20 U/L 16-61 [facility] Globulin (S) [Mass/Vol] 3.9 g/dL 2.2-4.2 [facility] Lipase [Catalytic activity/Vol] 930 U/L 73-393 [facility] Laboratory - Chemistry and C hemistry - challengeOrdered By: ED PROVIDER on 10-25-2022 CO2 [Moles/Vol] 26.0 mmol/L 21.0-32.0 [facility] Urea nitrogen/Creatinine [Mass ratio] 19.5 mg/mg 10-20 [facility] - Hematology and Cell countsOrdered By: ED PROVIDER on 10-25-2022 Erythrocyte distribution width (RBC) [Entitic vol] 43.3 fL 35.1-43.9 [facility] Erythrocyte distribution width (RBC) [Ratio] 12.6 % 11.6-14.6 [facility] Immature granulocytes/100 WBC (Bld) 0.400 % 0.0-0.9 [facility] Comment on above: IG% - Immature Granu locytes (promyelocytes, myelocytes and metamyelocytes) > 1% indicates that a LEFT SHIFT is Present. MCH (RBC) [Entitic mass] 31.5 pg 27.0-32.0 [facility] Nucleated RBC/100 WBC (Bld) [Ratio] 0 % 0-5 [facility] MCHC Auto (RBC) [Mass/Vol]Or dered By: ED PROVIDER on 10-25-2022 MCHC (RBC) [Mass/Vol] 33.6 g/dL 32-36 [facility] Mucus LM Ql (Urine sed)Order ed By: ED PROVIDER on 10-25-2022 Mucus Ql (Urine sed) 0 SEEN /hpf [facility] Nitrite Test strip Ql (U)Ord ered By: ED PROVIDER on 10-25-2022 Nitrite Ql (U) Negative Negative [facility] No Panel InformationOrdered By: ED PROVIDER on 10-25-2022 Estimated Creatinine Clearance Calc 74.47 ml/min [facility] Estimated GFR (MDRD) Amer 86 mL/min >60 [facility] Comment on above: GFR Calc Estimated GFR (MDRD) Non-Af Amer 71 mL/min >60 [facility] Comment on above: Non- GFR Calc No Panel InformationOrdered By: Dr. Arteaga on 10-25-2022 930 U/L 73-393 [facility] Platelets bldOrdered By: ED PROVIDER on 10-25-2022 Platelets (Bld) [#/Vol] 211 10*3/uL 150-450 [facility] Protein Test strip Ql (U)Ord ered By: ED PROVIDER on 10-25-2022 Protein Ql (U) 100 mg/dl Negative [facility] Serum or plasma albumin mc urement (mass/volume)Ordered By: Dr. Arteaga on 10-25-2022 Albumin [Mass/Vol] 4.4 g/dL 3.2-5.0 [facility] Serum or plasma calcium mc urement (mass/volume)Ordered By: ED PROVIDER on 10-25-2022 Calcium [Mass/Vol] 9.7 mg/dL 8.5-10.1 [facility] Serum or plasma creatinine m easurement (mass/volume)Ordered By: ED PROVIDER on 10-25-2022 Creatinine [Mass/Vol] 1.13 mg/dL 0.70-1.30 [facility] Comment on above: The validity of the calculated GFR & GFRAA in patients over 70 years has not been determined. Clinical correlation is essential. Serum or plasma urea nitroge n measurement (mass/volume)Ordered By: ED PROVIDER on 10-25-2022 Urea nitrogen [Mass/Vol] 22 mg/dL 7-18 [facility] Squamous epithelial cells de tection in urine sediment by light microscopyOrdered By: ED PROVIDER on 10-25-2022 Epithelial cells.squamous LM Ql (Urine sed) 0-5 SEEN /hpf 0-5 [facility] Thin prep Papanicolaou smear with manual screeningOrdered By: Dr. Arteaga on 10-25-2022 Thin prep Papanicolaou smear with manual screening 12 U/L 15-37 [facility] Thin prep Papanicolaou smear with manual screeningOrdered By: ED PROVIDER on 10-25-2022 Thin prep Papanicolaou smear with manual screening 9 5-15 [facility] Urine blood detectionOrdered By: ED PROVIDER on 10-25-2022 RBC Ql (U) Negative Negative [facility] RBC Ql (U) 0-5 SEEN /hpf 0-5 [facility] Urine clarityOrdered By: ED PROVIDER on 10-25-2022 Clarity (U) Clear Clear [facility] Urine color determinationOrd ered By: ED PROVIDER on 10-25-2022 Color (U) Yellow Yellow [facility] Urine glucose detectionOrder ed By: ED PROVIDER on 10-25-2022 Glucose Ql (U) 50 mg/dl Normal [facility] Urine leukocyte esterase det ection by dipstickOrdered By: ED PROVIDER on 10-25-2022 Leukocyte esterase Test strip Ql (U) Negative Negative [facility] Urine pHOrdered By: ED PROVI MARION on 10-25-2022 pH (U) 6.0 [pH] 5.0 - 8.0 [facility] Urine sediment bacteria coun t by microscopy (number/high power field)Ordered By: ED PROVIDER on 10-25-2022 Bacteria LM.HPF (Urine sed) [#/Area] 0 /[HPF] None Seen [facility] Urine specific gravity measu rementOrdered By: ED PROVIDER on 10-25-2022 Specific gravity (U) [Rel density] 1.020 1.002-1.03 0 [facility] Urobilinogen Auto test strip Ql (U)Ordered By: ED PROVIDER on 10-25-2022 Urobilinogen Ql (U) 1 mg/dl Normal [facility] Absolute lymphocyte countOrd ered By: Dr. Araujo on 09-08-2022 Lymphocytes Auto (Unsp spec) [#/Vol] 2.68 10*3/uL 0.83-4.51 [facility] Basophil percentageOrdered B y: Dr. Araujo on 09-08-2022 Basophil percentage 112 mg/dL 74-106 [facility] Basophil percentage 7.2 g/dL 6.4-8.2 [facility] Basophil percentage 0.80 mg/dL 0.20-1.00 [facility] Basophil percentage 135 mmol/L 136-145 [facility] Basophil percentage 3.6 mmol/L 3.5-5.1 [facility] Basophil percentage 106 mmol/L 98-107 [facility] Basophils (Bld) [#/Vol] 9.9 10*3/uL 4.4-11.0 [facility] Basophils (Bld) [#/Vol] 6.3 10*3/uL 2.0-7.7 [facility] Basophils/100 WBC (Bld) 0.4 % 0-1 [facility] Basophils/100 WBC (Bld) 63.3 % 47-70 [facility] Basophils/100 WBC (Bld) 1.2 % 0-5 [facility] Bilirubin [Mass/Vol] 0.80 mg/dL 0.20-1.00 [facility] Comment on above: For patients on eltr ombopag therapy, use of Dimension [place] TBIL is not recommended. Chloride [Moles/Vol] 106 mmol/L 98-107 [facility] Eosinophils/100 WBC (Bld) 1.2 % 0-5 [facility] Glucose [Mass/Vol] 112 mg/dL 74-106 [facility] Comment on above: Fasting Glucose resu lt from 100 to 125 mg/dL suggests IMPAIRED HOMEOSTASIS per A.D.A. criteria. Neutrophils (Bld) [#/Vol] 6.3 10*3/uL 2.0-7.7 [facility] Neutrophils/100 WBC (Bld) 63.3 % 47-70 [facility] Potassium [Moles/Vol] 3.6 mmol/L 3.5-5.1 [facility] Protein [Mass/Vol] 7.2 g/dL 6.4-8.2 [facility] Sodium [Moles/Vol] 135 mmol/L 136-145 [facility] WBC (Bld) [#/Vol] 9.9 10*3/uL 4.4-11.0 [facility] Blood erythrocytes count (nu mber/volume)Ordered By: Dr. Araujo on 09-08-2022 RBC (Bld) [#/Vol] 3.87 10*6/uL 4.6-6.2 [facility] Blood hemoglobin measurement (mass/volume)Ordered By: Dr. Araujo on 09-08-2022 Hemoglobin (Bld) [Mass/Vol] 12.2 g/dL 13.0-16.5 [facility] Blood lymphocytes/100 leukoc ytesOrdered By: Dr. Araujo on 09-08-2022 Lymphocytes/100 WBC (Bld) 27.0 % 19-41 [facility] Blood monocytes/100 leukocyt esOrdered By: Dr. Araujo on 09-08-2022 Monocytes/100 WBC (Bld) 7.8 % 0-10 [facility] Blood platelet mean volumeOr dered By: Dr. Araujo on 09-08-2022 Platelet mean volume (Bld) [Entitic vol] 10.0 fL 6.2-12.0 [facility] Determination of erythrocyte mean corpuscular volume (MCV)Ordered By: Dr. Araujo on 09-08-2022 MCV (RBC) [Entitic vol] 94.6 fL 80-94 [facility] Glucose Glucometer (BldC) [M ass/Vol]Ordered By: Dr. Araujo on 09-08-2022 Glucose [Mass/Vol] 191 mg/dL 74-106 [facility] Comment on above: MANAGEMENT OF PATIEN T CARE PER NURSING PROTOCOL Hematocrit Auto (Bld) [Volum e fraction]Ordered By: Dr. Araujo on 09-08-2022 Hematocrit (Bld) [Volume fraction] 36.6 % 40-54 [facility] - Chemistry and C hemistry - challengeOrdered By: Dr. Araujo on 09-08-2022 ALP [Catalytic activity/Vol] 55 U/L 45-117 [facility] ALT [Catalytic activity/Vol] 16 U/L 16-61 [facility] CO2 [Moles/Vol] 22.0 mmol/L 21.0-32.0 [facility] Globulin (S) [Mass/Vol] 3.7 g/dL 2.2-4.2 [facility] Urea nitrogen/Creatinine [Mass ratio] 6.1 mg/mg 10-20 [facility] - Hematology and Cell countsOrdered By: Dr. Araujo on 09-08-2022 Erythrocyte distribution width (RBC) [Entitic vol] 43.5 fL 35.1-43.9 [facility] Erythrocyte distribution width (RBC) [Ratio] 12.6 % 11.6-14.6 [facility] Immature granulocytes/100 WBC (Bld) 0.300 % 0.0-0.9 [facility] Comment on above: IG% - Immature Granu locytes (promyelocytes, myelocytes and metamyelocytes) > 1% indicates that a LEFT SHIFT is Present. MCH (RBC) [Entitic mass] 31.5 pg 27.0-32.0 [facility] Nucleated RBC/100 WBC (Bld) [Ratio] 0 % 0-5 [facility] MCHC Auto (RBC) [Mass/Vol]Or dered By: Dr. Araujo on 09-08-2022 MCHC (RBC) [Mass/Vol] 33.3 g/dL 32-36 [facility] No Panel InformationOrdered By: Dr. Araujo on 09-08-2022 Estimated Creatinine Clearance Calc 102.63 ml/min [facility] Estimated GFR (MDRD) Amer 124 mL/min >60 [facility] Comment on above: GFR Calc Estimated GFR (MDRD) Non-Af Amer 102 mL/min >60 [facility] Comment on above: Non- GFR Calc 31.5 pg 27.0-32.0 [facility] 12.6 % 11.6-14.6 [facility] 43.5 fl 35.1-43.9 [facility] 0.300 % 0.0-0.9 [facility] 0 % 0-5 [facility] 102 mL/min >60 [facility] 124 mL/min >60 [facility] 102.63 ml/min [facility] 6.1 RATIO 10-20 [facility] 3.7 g/dL 2.2-4.2 [facility] 55 U/L 45-117 [facility] 16 U/L 16-61 [facility] 22.0 mmol/L 21.0-32.0 [facility] Platelets bldOrdered By: Dr. Araujo on 09-08-2022 Platelets (Bld) [#/Vol] 153 10*3/uL 150-450 [facility] Serum or plasma albumin mc urement (mass/volume)Ordered By: Dr. Araujo on 09-08-2022 Albumin [Mass/Vol] 3.5 g/dL 3.2-5.0 [facility] Serum or plasma albumin/glob ulin mass ratioOrdered By: Dr. Araujo on 09-08-2022 Albumin/Globulin [Mass ratio] 0.9 {ratio} 0.9-2.4 [facility] Serum or plasma calcium mc urement (mass/volume)Ordered By: Dr. Araujo on 09-08-2022 Calcium [Mass/Vol] 8.4 mg/dL 8.5-10.1 [facility] Serum or plasma creatinine m easurement (mass/volume)Ordered By: Dr. Araujo on 09-08-2022 Creatinine [Mass/Vol] 0.82 mg/dL 0.70-1.30 [facility] Comment on above: The validity of the calculated GFR & GFRAA in patients over 70 years has not been determined. Clinical correlation is essential. Serum or plasma urea nitroge n measurement (mass/volume)Ordered By: Dr. Araujo on 09-08-2022 Urea nitrogen [Mass/Vol] 5 mg/dL 7-18 [facility] Thin prep Papanicolaou smear with manual screeningOrdered By: Dr. Araujo on 09-08-2022 Thin prep Papanicolaou smear with manual screening 12 U/L 15-37 [facility] Thin prep Papanicolaou smear with manual screening 7 5-15 [facility] Whole blood hemoglobin A1c/t otal hemoglobin ratio (mass fraction)Ordered By: Dr. Araujo on 09-07-2022 HbA1c (Bld) [Mass fraction] 6.8 % 3.8-5.6 [facility] Comment on above: Normal < 5.7 % Predi abetic 5.7 - 6.4 % Diabetic >or= 6.5 % Please note range changes. Absolute lymphocyte counton 09-06-2022 Lymphocytes Auto (Unsp spec) [#/Vol] 1.99 10*3/uL 0.83-4.51 [facility] Work Phone: Basophil percentageOrdered B y: Dr. Araujo on 09-06-2022 Basophil percentage 2.9 mg/dL 2.5-4.9 [facility] Basophil percentageon 2021 Basophils/100 WBC (Bld) 0.6 % 0-1 [facility] Work Phone: Bilirubin [Mass/Vol] 1.30 mg/dL 0.20-1.00 [facility] Work Phone: Comment on above: For patients on eltr ombopag therapy, use of Dim[place] TBIL is not recommended. Chloride [Moles/Vol] 97 mmol/L 98-107 [facility] Work Phone: Eosinophils/100 WBC (Bld) 0.5 % 0-5 [facility] Work Phone: Glucose [Mass/Vol] 216 mg/dL 74-106 [facility] Work Phone: Comment on above: Glucose result great er than or equal to 200 mg/dLsuggests DIABETES MELLITUS per A.D.A. criteria. Neutrophils (Bld) [#/Vol] 9.2 10*3/uL 2.0-7.7 [facility] Work Phone: Neutrophils/100 WBC (Bld) 75.9 % 47-70 [facility] Work Phone: [phone] Potassium [Moles/Vol] 3.6 mmol/L 3.5-5.1 [facility] Work Phone: Protein [Mass/Vol] 8.5 g/dL 6.4-8.2 [facility] Work Phone: [phone] Sodium [Moles/Vol] 133 mmol/L 136-145 [facility] Work Phone: [phone] WBC (Bld) [#/Vol] 12.1 10*3/uL 4.4-11.0 [facility] Work Phone: [phone] Basophil percentageOrdered B y: Dr. Gandhi on 09-06-2022 Basophil percentage 0 SEEN /hpf 0-5 [facility] Bilirubin Test strip Ql (U)O rdered By: Dr. Gandhi on 09-06-2022 Bilirubin Ql (U) Negative Negative [facility] Blood erythrocytes count (nu mber/volume)on 09-06-2022 RBC (Bld) [#/Vol] 4.71 10*6/uL 4.6-6.2 [facility] Work Phone: Blood hemoglobin measurement (mass/volume)on 09-06-2022 Hemoglobin (Bld) [Mass/Vol] 15.0 g/dL 13.0-16.5 [facility] Work Phone: Blood lymphocytes/100 leukoc yteson 09-06-2022 Lymphocytes/100 WBC (Bld) 16.5 % 19-41 [facility] Work Phone: [phone] Blood monocytes/100 leukocyt eson 09-06-2022 Monocytes/100 WBC (Bld) 6.2 % 0-10 [facility] Work Phone: Blood platelet mean volumeon 09-06-2022 Platelet mean volume (Bld) [Entitic vol] 9.7 fL 6.2-12.0 [facility] Work Phone: Determination of erythrocyte mean corpuscular volume (MCV)on 09-06-2022 MCV (RBC) [Entitic vol] 91.3 fL 80-94 [facility] Work Phone: Hematocrit Auto (Bld) [Volum e fraction]on 09-06-2022 Hematocrit (Bld) [Volume fraction] 43.0 % 40-54 [facility] Work Phone: Ketones Test strip Ql (U)Ord ered By: Dr. Gandhi on 09-06-2022 Ketones Ql (U) Negative Negative [facility] Laboratory - Chemistry and C hemistry - challengeOrdered By: Dr. Araujo on 09-06-2022 Amylase [Catalytic activity/Vol] 48 U/L 15-85 [facility] Magnesium [Mass/Vol] 2.0 mg/dL 1.6-2.6 [facility] Laboratory - Chemistry and C hemistry - challengeon 09-06-2022 ALP [Catalytic activity/Vol] 67 U/L 45-117 [facility] Work Phone: ALT [Catalytic activity/Vol] 22 U/L 16-61 [facility] Work Phone: CO2 [Moles/Vol] 24.0 mmol/L 21.0-32.0 [facility] Work Phone: Globulin (S) [Mass/Vol] 4.1 g/dL 2.2-4.2 [facility] Work Phone: Urea nitrogen/Creatinine [Mass ratio] 7.4 mg/mg 10-20 [facility] Work Phone: Laboratory - Chemistry and C hemistry - challengeOrdered By: Dr. Gandhi on 09-06-2022 Lipase [Catalytic activity/Vol] 1507 U/L 73-393 [facility] Laboratory - Hematology and Cell countson 09-06-2022 Erythrocyte distribution width (RBC) [Entitic vol] 42.5 fL 35.1-43.9 [facility] Work Phone: Erythrocyte distribution width (RBC) [Ratio] 12.5 % 11.6-14.6 [facility] Work Phone: Immature granulocytes/100 WBC (Bld) 0.300 % 0.0-0.9 [facility] Work Phone: Comment on above: IG% - Immature Granu locytes (promyelocytes, myelocytes and metamyelocytes) > 1% indicates that a LEFT SHIFT is Present. MCH (RBC) [Entitic mass] 31.8 pg 27.0-32.0 [facility] Work Phone: Nucleated RBC/100 WBC (Bld) [Ratio] 0 % 0-5 [facility] Work Phone: MCHC Auto (RBC) [Mass/Vol]on 09-06-2022 MCHC (RBC) [Mass/Vol] 34.9 g/dL 32-36 [facility] Work Phone: Mucus LM Ql (Urine sed)Order ed By: Dr. Gandhi on 09-06-2022 Mucus Ql (Urine sed) 0 SEEN /hpf [facility] Nitrite Test strip Ql (U)Ord ered By: Dr. Gandhi on 09-06-2022 Nitrite Ql (U) Negative Negative [facility] No Panel InformationOrdered By: Dr. Araujo on 09-06-2022 Ethyl Alcohol Level < 3.0 mg/dL [facility] Comment on above: The serum:whole bloo d ethanol ratio is approximately 1.14and varies slightly with hematocrit. Medical Alcohol reference interval and critical value innon-tolerant individuals; 50 - 100 Impairment 100 Intoxication 100 - 250 Severe Poisoning 250 - 400 Deep/possible fatal coma 48 U/L 15-85 [facility] 2.0 mg/dL 1.6-2.6 [facility] < 3.0 mg/dL [facility] No Panel Informationon 09-06 Estimated Creatinine Clearance Calc 56.48 ml/min [facility] Work Phone: Estimated GFR (MDRD) Amer 62 mL/min >60 [facility] Work Phone: Comment on above: GFR Calc Estimated GFR (MDRD) Non-Af Amer 52 mL/min >60 [facility] Work Phone: Comment on above: Non- GFR Calc No Panel InformationOrdered By: Dr. Gandhi on 09-06-2022 1507 U/L 73-393 [facility] Platelets bldon 09-06-2022 Platelets (Bld) [#/Vol] 200 10*3/uL 150-450 [facility] Work Phone: Protein Test strip Ql (U)Ord ered By: Dr. Gandhi on 09-06-2022 Protein Ql (U) 100 mg/dl Negative [facility] Serum or plasma albumin mc urement (mass/volume)on 09-06-2022 Albumin [Mass/Vol] 4.4 g/dL 3.2-5.0 [facility] Work Phone: Serum or plasma albumin/glob ulin mass ratioon 09-06-2022 Albumin/Globulin [Mass ratio] 1.1 {ratio} 0.9-2.4 [facility] Work Phone: Serum or plasma calcium mc urement (mass/volume)on 09-06-2022 Calcium [Mass/Vol] 9.5 mg/dL 8.5-10.1 [facility] Work Phone: Serum or plasma creatinine m easurement (mass/volume)on 09-06-2022 Creatinine [Mass/Vol] 1.49 mg/dL 0.70-1.30 [facility] Work Phone: Comment on above: The validity of the calculated GFR & GFRAA in patients over 70 years has not been determined. Clinical correlation is essential. Serum or plasma folate measu rement (mass/volume)Ordered By: Dr. Araujo on 09-06-2022 Folate [Mass/Vol] 41.90 ng/mL 3.1-55.4 [facility] Serum or plasma urea nitroge n measurement (mass/volume)on 09-06-2022 Urea nitrogen [Mass/Vol] 11 mg/dL 7-18 [facility] Work Phone: Squamous epithelial cells de tection in urine sediment by light microscopyOrdered By: Dr. Gandhi on 09-06-2022 Epithelial cells.squamous LM Ql (Urine sed) 0 SEEN /hpf 0-5 [facility] Thin prep Papanicolaou smear with manual screeningon 09-06-2022 Thin prep Papanicolaou smear with manual screening 16 U/L 15-37 [facility] Work Phone: Thin prep Papanicolaou smear with manual screening 12 5-15 [facility] Work Phone: Urine blood detectionOrdered By: Dr. Gandhi on 09-06-2022 RBC Ql (U) 10 /ul Negative [facility] RBC Ql (U) 0 SEEN /hpf 0-5 [facility] Urine clarityOrdered By: Dr. Gandhi on 09-06-2022 Clarity (U) Clear Clear [facility] Urine color determinationOrd ered By: Dr. Gandhi on 09-06-2022 Color (U) Yellow Yellow [facility] Urine glucose detectionOrder ed By: Dr. Gandhi on 09-06-2022 Glucose Ql (U) Normal mg/dl Normal [facility] Urine leukocyte esterase det ection by dipstickOrdered By: Dr. Gandhi on 09-06-2022 Leukocyte esterase Test strip Ql (U) 25 /ul Negative [facility] Urine pHOrdered By: Dr. Sajan ferrer on 09-06-2022 pH (U) 6.0 [pH] 5.0 - 8.0 [facility] Urine sediment bacteria coun t by microscopy (number/high power field)Ordered By: Dr. Gandhi on 09-06-2022 Bacteria LM.HPF (Urine sed) [#/Area] 0 /[HPF] None Seen [facility] Urine specific gravity measu rementOrdered By: Dr. Gandhi on 09-06-2022 Specific gravity (U) [Rel density] 1.010 1.002-1.03 0 [facility] Urobilinogen Auto test strip Ql (U)Ordered By: Dr. Gandhi on 09-06-2022 Urobilinogen Ql (U) Normal mg/dl Normal [facility] XR HIP GENERAL 3V PELV/AP/LA T LEFTon 08-19-2022 [facility] XR Pelvis and Hip - left AP and Lateral frogon 08-19-2022 IMPRESSION: Degenera tive changes in the left hip as described above. Top Bottom Attaching Machine Operator: JACQUE Transcribe Date/Time: Aug 19 2022 5:10P Dictated by : GEOFFREY CARROLL MD This examination was interpreted and the report reviewed and electronically signed by: GEOFFREY CARROLL MD on Aug 19 2022 5:12PM [facility] DIVISION OF RADIOLOGY * * *Final Report* * * DATE OF EXAM: Aug 19 2022 5:08PM WOX [id number] - XR HIP 3V PELV+ AP/LAT LT / PROCEDURE REASON: Left hip pain * * * * Physician Interpretation * * * * EXAM TITLE: XR HIP 3V PELV+ AP/LAT LT EXAM DATE/TIME: 08/19/2022 5:08 PM COMPARISON: None. CLINICAL INDICATION/HISTORY: Chronic left hip pain. TECHNIQUE: AP and frog lateral views of the left hip and AP view of the pelvis are presented. FINDINGS: No fractures or subluxations are noted in the left hip. The left hip joint space is maintained however osteophyte formation seen along the lateral aspect of the acetabulum. The visualized pelvic bones are intact. The mineralization of the bones is normal. There is no significant soft tissue swelling. DIVISION OF RADIOLOGY Provider, [facility] - 08/19/2022 * * *Final Report* * * DATE OF EXAM: Aug 19 2022 5:08PM WOX [id number] - XR HIP 3V PELV+ AP/LAT LT / PROCEDURE REASON: Left hip pain * * * * Physician Interpretation * * * * EXAM TITLE: XR HIP 3V PELV+ AP/LAT LT EXAM DATE/TIME: 08/19/2022 5:08 PM COMPARISON: None. CLINICAL INDICATION/HISTORY: Chronic left hip pain. TECHNIQUE: AP and frog lateral views of the left hip and AP view of the pelvis are presented. FINDINGS: No fractures or subluxations are noted in the left hip. The left hip joint space is maintained however osteophyte formation seen along the lateral aspect of the acetabulum. The visualized pelvic bones are intact. The mineralization of the bones is normal. There is no significant soft tissue swelling. IMPRESSION IMPRESSION: Degenerative changes in the left hip as described above. Top Bottom Attaching Machine Operator: JACQUE Transcribe Date/Time: Aug 19 2022 5:10P Dictated by : GEOFFREY CARROLL MD This examination was interpreted and the report reviewed and electronically signed by: GEOFFREY CARROLL MD on Aug 19 2022 5:12PM EST [facility] Radiology Study observation (narrative) [facility] Pelvis [facility] Hip - left AP and Lateral frogOrdered By: [facility] Provider on 08-19-2022 [facility] Albumin Elph [Mass/Vol]Order ed By: Dr. Burnett on 08-08-2022 Albumin [Mass/Vol] 4.3 g/dL 2.9-4.4 [facility] Basophil percentageOrdered B y: Dr. Burnett on 08-08-2022 Ammonia (P) [Moles/Vol] 63.0 umol/L [facility] Basophil percentage Comment . [facility] Comment on above: No monoclonality det ected. Interpretation of serum or p lasma protein pattern by immunofixation (narrative resultOrdered By: Dr. Burnett on 08-08-2022 Protein Fractions Immunofixation Jose [Interp] See comment [facility] Comment on above: NOT OBSERVED No Panel InformationOrdered By: Dr. Burnett on 08-08-2022 Addendum Document Comment . [facility] Comment on above: Protein electrophore sis scan will follow via computer,mail, or dielectric press operator delivery. Free Lambda Light Chains, Quant 22.1 mg/L 5.7-26.3 [facility] Levetiracetam (Keppra) Level 10.6 ug/mL 10.0-40.0 [facility] Comment on above: Performed at: [address] [id number] Director: Andre Doty PhD, Phone: [phone] at: [facility] - [facility] [address] [id number] Director: Fam Talbert MD, Phone: [phone] Serum [id number] measu rement by electrophoresisOrdered By: Dr. Burnett on 08-08-2022 Alpha 1 globulin Elph [Mass/Vol] 0.2 g/dL 0.0-0.4 [facility] Alpha 1 globulin Elph [Mass/Vol] 0.7 g/dL 0.4-1.0 [facility] Serum globulin measurement ( mass/volume)Ordered By: Dr. Burnett on 08-08-2022 Globulin (S) [Mass/Vol] 3.4 g/dL 2.2-3.9 [facility] Serum immunoglobulin kappa l ight chains/immunoglobulin lambda light chains mass ratioOrdered By: Dr. Burnett on 08-08-2022 Immunoglobulin light chains.kappa/Immunoglobu francoise light chains.lambda (S) [Mass ratio] 1.69 0.26-1.65 [facility] Serum or plasma IgA measurem ent (mass/volume)Ordered By: Dr. Burnett on 08-08-2022 IgA [Mass/Vol] 340 mg/dL 90-386 [facility] Serum or plasma IgG measurem ent (mass/volume)Ordered By: Dr. Burnett on 08-08-2022 IgG [Mass/Vol] 1154 mg/dL 603-1613 [facility] Serum or plasma IgM measurem ent (mass/volume)Ordered By: Dr. Burnett on 08-08-2022 IgM [Mass/Vol] 91 mg/dL 20-172 [facility] Serum or plasma beta globuli n measurement by electrophoresis (mass/volume)Ordered By: Dr. Burnett on 08-08-2022 Beta globulin Elph [Mass/Vol] 1.3 g/dL 0.7-1.3 [facility] Serum or plasma gamma globul in measurement by electrophoresis (mass/volume)Ordered By: Dr. Burnett on 08-08-2022 Gamma globulin Elph [Mass/Vol] 1.1 g/dL 0.4-1.8 [facility] Serum or plasma immunoelectr ophoresis interpretation (nominal result)Ordered By: Dr. Burnett on 08-08-2022 Interpretation IEP [Interp] Comment . [facility] Comment on above: No monoclonality det ected. Serum or plasma immunoglobul in kappa light chains measurement (mass/volume)Ordered By: Dr. Burnett on 08-08-2022 Immunoglobulin light chains.kappa [Mass/Vol] 37.3 mg/L 3.3-19.4 [facility] Thin prep Papanicolaou smear with manual screeningOrdered By: Dr. Burnett on 08-08-2022 Thin prep Papanicolaou smear with manual screening 1.3 0.7-1.7 [facility] Total protein bloodOrdered B y: Dr. Burnett on 08-08-2022 Protein [Mass/Vol] 7.7 g/dL 6.0-8.5 [facility] Absolute lymphocyte countOrd ered By: Dr. Cox on 07-18-2022 Lymphocytes Auto (Unsp spec) [#/Vol] 2.36 10*3/uL 0.83-4.51 [facility] Basophil percentageOrdered B y: Dr. Cox on 07-18-2022 Basophils/100 WBC (Bld) 0.5 % 0-1 [facility] Bilirubin [Mass/Vol] 0.60 mg/dL 0.20-1.00 [facility] Comment on above: For patients on eltr ombopag therapy, use of Dim[place] TBIL is not recommended. Chloride [Moles/Vol] 106 mmol/L 98-107 [facility] Eosinophils/100 WBC (Bld) 2.3 % 0-5 [facility] Glucose [Mass/Vol] 162 mg/dL 74-106 [facility] Comment on above: Fasting Glucose resu lt greater than or equal to 126 mg/dL suggests DIABETES MELLITUS per A.D.A. criteria. Neutrophils (Bld) [#/Vol] 4.9 10*3/uL 2.0-7.7 [facility] Neutrophils/100 WBC (Bld) 59.8 % 47-70 [facility] Potassium [Moles/Vol] 4.1 mmol/L 3.5-5.1 [facility] Protein [Mass/Vol] 7.4 g/dL 6.4-8.2 [facility] Sodium [Moles/Vol] 137 mmol/L 136-145 [facility] WBC (Bld) [#/Vol] 8.2 10*3/uL 4.4-11.0 [facility] Blood erythrocytes count (nu mber/volume)Ordered By: Dr. Cox on 07-18-2022 RBC (Bld) [#/Vol] 4.04 10*6/uL 4.6-6.2 [facility] Blood hemoglobin measurement (mass/volume)Ordered By: Dr. Cox on 07-18-2022 Hemoglobin (Bld) [Mass/Vol] 12.7 g/dL 13.0-16.5 [facility] Blood lymphocytes/100 leukoc ytesOrdered By: Dr. Cox on 07-18-2022 Lymphocytes/100 WBC (Bld) 28.9 % 19-41 [facility] Blood monocytes/100 leukocyt esOrdered By: Dr. Cox on 07-18-2022 Monocytes/100 WBC (Bld) 8.1 % 0-10 [facility] Blood platelet mean volumeOr dered By: Dr. Cox on 07-18-2022 Platelet mean volume (Bld) [Entitic vol] 9.9 fL 6.2-12.0 [facility] Determination of erythrocyte mean corpuscular volume (MCV)Ordered By: Dr. Cox on 07-18-2022 MCV (RBC) [Entitic vol] 94.1 fL 80-94 [facility] Glucose Glucometer (BldC) [M ass/Vol]Ordered By: Dr. Carr on 07-18-2022 Glucose [Mass/Vol] 232 mg/dL 74-106 [facility] Comment on above: MANAGEMENT OF PATIEN T CARE PER NURSING PROTOCOL Hematocrit Auto (Bld) [Volum e fraction]Ordered By: Dr. Cox on 07-18-2022 Hematocrit (Bld) [Volume fraction] 38.0 % 40-54 [facility] Laboratory - Chemistry and C hemistry - challengeOrdered By: Dr. Cox on 07-18-2022 ALP [Catalytic activity/Vol] 60 U/L 45-117 [facility] ALT [Catalytic activity/Vol] 19 U/L 16-61 [facility] CO2 [Moles/Vol] 26.0 mmol/L 21.0-32.0 [facility] Globulin (S) [Mass/Vol] 3.8 g/dL 2.2-4.2 [facility] Magnesium [Mass/Vol] 1.8 mg/dL 1.6-2.6 [facility] Urea nitrogen/Creatinine [Mass ratio] 13.7 mg/mg 10-20 [facility] Laboratory - Hematology and Cell countsOrdered By: Dr. Cox on 07-18-2022 Erythrocyte distribution width (RBC) [Entitic vol] 43.8 fL 35.1-43.9 [facility] Erythrocyte distribution width (RBC) [Ratio] 12.7 % 11.6-14.6 [facility] Immature granulocytes/100 WBC (Bld) 0.400 % 0.0-0.9 [facility] Comment on above: IG% - Immature Granu locytes (promyelocytes, myelocytes and metamyelocytes) > 1% indicates that a LEFT SHIFT is Present. MCH (RBC) [Entitic mass] 31.4 pg 27.0-32.0 [facility] Nucleated RBC/100 WBC (Bld) [Ratio] 0 % 0-5 [facility] MCHC Auto (RBC) [Mass/Vol]Or dered By: Dr. Cox on 07-18-2022 MCHC (RBC) [Mass/Vol] 33.4 g/dL 32-36 [facility] No Panel InformationOrdered By: Dr. Cox on 07-18-2022 Estimated Creatinine Clearance Calc 82.50 ml/min [facility] Estimated GFR (MDRD) Amer 97 mL/min >60 [facility] Comment on above: GFR Calc Estimated GFR (MDRD) Non-Af Amer 80 mL/min >60 [facility] Comment on above: Non- GFR Calc Platelets bldOrdered By: Dr. Cox on 07-18-2022 Platelets (Bld) [#/Vol] 169 10*3/uL 150-450 [facility] Serum or plasma albumin mc urement (mass/volume)Ordered By: Dr. Cox on 07-18-2022 Albumin [Mass/Vol] 3.6 g/dL 3.2-5.0 [facility] Serum or plasma albumin/glob ulin mass ratioOrdered By: Dr. Cox on 07-18-2022 Albumin/Globulin [Mass ratio] 0.9 {ratio} 0.9-2.4 [facility] Serum or plasma calcium mc urement (mass/volume)Ordered By: Dr. Cox on 07-18-2022 Calcium [Mass/Vol] 9.3 mg/dL 8.5-10.1 [facility] Serum or plasma creatinine m easurement (mass/volume)Ordered By: Dr. Cox on 07-18-2022 Creatinine [Mass/Vol] 1.02 mg/dL 0.70-1.30 [facility] Comment on above: The validity of the calculated GFR & GFRAA in patients over 70 years has not been determined. Clinical correlation is essential. Serum or plasma urea nitroge n measurement (mass/volume)Ordered By: Dr. Cox on 07-18-2022 Urea nitrogen [Mass/Vol] 14 mg/dL 7-18 [facility] Thin prep Papanicolaou smear with manual screeningOrdered By: Dr. Cox on 07-18-2022 Thin prep Papanicolaou smear with manual screening 14 U/L 15-37 [facility] Thin prep Papanicolaou smear with manual screening 5 5-15 [facility] Laboratory - Chemistry and C hemistry - challengeOrdered By: Dr. Cox on 07-14-2022 Sodium (U) [Moles/Vol] 24 mmol/L Not Establ. [facility] No Panel InformationOrdered By: Dr. Cox on 07-14-2022 Urine Potassium 6.0 mmol/L Not Establ. [facility] Thin prep Papanicolaou smear with manual screeningOrdered By: Dr. Cox on 07-14-2022 Thin prep Papanicolaou smear with manual screening 20 mmol/L Not Establ. [facility] Thin prep Papanicolaou smear with manual screening 270 mOsm/KG 275-295 [facility] Urine osmolality measurement Ordered By: Dr. Cox on 07-14-2022 Osmolality (U) [Osmolality] 148 mOsm/KG >50 [facility] Comment on above: Normal Urine Referen ce Ranges Random: 50 - 1200 mOsm/kg H20 depending on fluid intake Random: >850 mOsm/kg after 12 hour fluid restriction 24 hour: ~300 - 900 mOsm/kg H2O Absolute lymphocyte counton 07-13-2022 Lymphocytes Auto (Unsp spec) [#/Vol] 3.57 10*3/uL 0.83-4.51 [facility] Work Phone: Basophil percentageon 2021 Basophils/100 WBC (Bld) 0.5 % 0-1 [facility] Work Phone: Bilirubin [Mass/Vol] 0.40 mg/dL 0.20-1.00 [facility] Work Phone: Comment on above: For patients on eltr ombopag therapy, use of [place] TBIL is not recommended. Chloride [Moles/Vol] 100 mmol/L 98-107 [facility] Work Phone: Eosinophils/100 WBC (Bld) 2.2 % 0-5 [facility] Work Phone: Glucose [Mass/Vol] 242 mg/dL 74-106 [facility] Work Phone: Comment on above: Glucose result great er than or equal to 200 mg/dLsuggests DIABETES MELLITUS per A.D.A. criteria. Neutrophils (Bld) [#/Vol] 6.4 10*3/uL 2.0-7.7 [facility] Work Phone: [phone] Neutrophils/100 WBC (Bld) 58.1 % 47-70 [facility] Work Phone: [phone] Potassium [Moles/Vol] 3.4 mmol/L 3.5-5.1 [facility] Work Phone: Protein [Mass/Vol] 8.1 g/dL 6.4-8.2 [facility] Work Phone: Sodium [Moles/Vol] 134 mmol/L 136-145 [facility] Work Phone: [phone] WBC (Bld) [#/Vol] 11.1 10*3/uL 4.4-11.0 [facility] Work Phone: Blood erythrocytes count (nu mber/volume)on 07-13-2022 RBC (Bld) [#/Vol] 4.12 10*6/uL 4.6-6.2 [facility] Work Phone: [phone] Blood hemoglobin measurement (mass/volume)on 07-13-2022 Hemoglobin (Bld) [Mass/Vol] 13.2 g/dL 13.0-16.5 [facility] Work Phone: [phone] Blood lymphocytes/100 leukoc yteson 07-13-2022 Lymphocytes/100 WBC (Bld) 32.3 % 19-41 [facility] Work Phone: Blood monocytes/100 leukocyt eson 07-13-2022 Monocytes/100 WBC (Bld) 6.4 % 0-10 [facility] Work Phone: Blood platelet mean volumeon 07-13-2022 Platelet mean volume (Bld) [Entitic vol] 9.3 fL 6.2-12.0 [facility] Work Phone: Determination of erythrocyte mean corpuscular volume (MCV)on 07-13-2022 MCV (RBC) [Entitic vol] 91.0 fL 80-94 [facility] Work Phone: Direct bilirubinOrdered By: Phillip Aguiar on 07-13-2022 Bilirubin.direct [Mass/Vol] 0.14 mg/dL 0.00-0.30 [facility] Hematocrit Auto (Bld) [Volum e fraction]on 07-13-2022 Hematocrit (Bld) [Volume fraction] 37.5 % 40-54 [facility] Work Phone: Laboratory - Chemistry and C hemistry - challengeon 07-13-2022 ALP [Catalytic activity/Vol] 72 U/L 45-117 [facility] Work Phone: ALT [Catalytic activity/Vol] 21 U/L 16-61 [facility] Work Phone: CO2 [Moles/Vol] 22.0 mmol/L 21.0-32.0 [facility] Work Phone: Globulin (S) [Mass/Vol] 4.0 g/dL 2.2-4.2 [facility] Work Phone: Urea nitrogen/Creatinine [Mass ratio] 12.1 mg/mg 10-20 [facility] Work Phone: Laboratory - Chemistry and C hemistry - challengeOrdered By: Phillip Aguiar on 07-13-2022 Lipase [Catalytic activity/Vol] 828 U/L 73-393 [facility] Laboratory - Hematology and Cell countson 10-19-2022 Erythrocyte distribution width (RBC) [Entitic vol] 40.7 fL 35.1-43.9 [facility] Work Phone: Erythrocyte distribution width (RBC) [Ratio] 12.2 % 11.6-14.6 [facility] Work Phone: Immature granulocytes/100 WBC (Bld) 0.500 % 0.0-0.9 [facility] Work Phone: Comment on above: IG% - Immature Granu locytes (promyelocytes, myelocytes and metamyelocytes) > 1% indicates that a LEFT SHIFT is Present. MCH (RBC) [Entitic mass] 32.0 pg 27.0-32.0 [facility] Work Phone: Nucleated RBC/100 WBC (Bld) [Ratio] 0 % 0-5 [facility] Work Phone: MCHC Auto (RBC) [Mass/Vol]on 07-13-2022 MCHC (RBC) [Mass/Vol] 35.2 g/dL 32-36 [facility] Work Phone: No Panel Informationon 07-13 Estimated Creatinine Clearance Calc 92.48 ml/min [facility] Work Phone: Estimated GFR (MDRD) Amer 111 mL/min >60 [facility] Work Phone: Comment on above: GFR Calc Estimated GFR (MDRD) Non-Af Amer 92 mL/min >60 [facility] Work Phone: Comment on above: Non- GFR Calc Platelets bldon 07-13-2022 Platelets (Bld) [#/Vol] 214 10*3/uL 150-450 [facility] Work Phone: Serum or plasma albumin mc urement (mass/volume)on 07-13-2022 Albumin [Mass/Vol] 4.1 g/dL 3.2-5.0 [facility] Work Phone: Serum or plasma calcium mc urement (mass/volume)on 07-13-2022 Calcium [Mass/Vol] 9.7 mg/dL 8.5-10.1 [facility] Work Phone: Serum or plasma creatinine m easurement (mass/volume)on 07-13-2022 Creatinine [Mass/Vol] 0.91 mg/dL 0.70-1.30 [facility] Work Phone: Comment on above: The validity of the calculated GFR & GFRAA in patients over 70 years has not been determined. Clinical correlation is essential. Serum or plasma urea nitroge n measurement (mass/volume)on 07-13-2022 Urea nitrogen [Mass/Vol] 11 mg/dL 7-18 [facility] Work Phone: Thin prep Papanicolaou smear with manual screeningon 07-13-2022 Thin prep Papanicolaou smear with manual screening 8 U/L 15-37 [facility] Work Phone: Thin prep Papanicolaou smear with manual screening 12 5-15 [facility] Work Phone: Absolute lymphocyte countOrd ered By: Dr. Gandhi on 07-04-2022 Lymphocytes Auto (Unsp spec) [#/Vol] 2.83 10*3/uL 0.83-4.51 [facility] Basophil percentageOrdered B y: Dr. Gandhi on 07-04-2022 Basophil percentage 0-5 SEEN /hpf 0-5 [facility] Basophils/100 WBC (Bld) 0.5 % 0-1 [facility] Bilirubin [Mass/Vol] 0.80 mg/dL 0.20-1.00 [facility] Comment on above: For patients on eltr ombopag therapy, use of Dim[place] TBIL is not recommended. Chloride [Moles/Vol] 98 mmol/L 98-107 [facility] Eosinophils/100 WBC (Bld) 0.8 % 0-5 [facility] Glucose [Mass/Vol] 152 mg/dL 74-106 [facility] Comment on above: Fasting Glucose resu lt greater than or equal to 126 mg/dL suggests DIABETES MELLITUS per A.D.A. criteria. Neutrophils (Bld) [#/Vol] 7.3 10*3/uL 2.0-7.7 [facility] Neutrophils/100 WBC (Bld) 66.2 % 47-70 [facility] Potassium [Moles/Vol] 3.5 mmol/L 3.5-5.1 [facility] Protein [Mass/Vol] 8.1 g/dL 6.4-8.2 [facility] Sodium [Moles/Vol] 135 mmol/L 136-145 [facility] WBC (Bld) [#/Vol] 11.1 10*3/uL 4.4-11.0 [facility] Bilirubin Test strip Ql (U)O rdered By: Dr. Gandhi on 07-04-2022 Bilirubin Ql (U) Negative Negative [facility] Blood erythrocytes count (nu mber/volume)Ordered By: Dr. Gandhi on 07-04-2022 RBC (Bld) [#/Vol] 4.19 10*6/uL 4.6-6.2 [facility] Blood hemoglobin measurement (mass/volume)Ordered By: Dr. Gandhi on 07-04-2022 Hemoglobin (Bld) [Mass/Vol] 13.8 g/dL 13.0-16.5 [facility] Blood lymphocytes/100 leukoc ytesOrdered By: Dr. Gandhi on 07-04-2022 Lymphocytes/100 WBC (Bld) 25.5 % 19-41 [facility] Blood monocytes/100 leukocyt esOrdered By: Dr. Gandhi on 07-04-2022 Monocytes/100 WBC (Bld) 6.7 % 0-10 [facility] Blood platelet mean volumeOr dered By: Dr. Gandhi on 07-04-2022 Platelet mean volume (Bld) [Entitic vol] 9.5 fL 6.2-12.0 [facility] Determination of erythrocyte mean corpuscular volume (MCV)Ordered By: Dr. Gandhi on 07-04-2022 MCV (RBC) [Entitic vol] 92.6 fL 80-94 [facility] Hematocrit Auto (Bld) [Volum e fraction]Ordered By: Dr. Gandhi on 07-04-2022 Hematocrit (Bld) [Volume fraction] 38.8 % 40-54 [facility] Ketones Test strip Ql (U)Ord ered By: Dr. Gandhi on 07-04-2022 Ketones Ql (U) 5 mg/dl Negative [facility] Laboratory - Chemistry and C hemistry - challengeOrdered By: Dr. Gandhi on 07-04-2022 ALP [Catalytic activity/Vol] 71 U/L 45-117 [facility] ALT [Catalytic activity/Vol] 20 U/L 16-61 [facility] CO2 [Moles/Vol] 27.0 mmol/L 21.0-32.0 [facility] Globulin (S) [Mass/Vol] 4.1 g/dL 2.2-4.2 [facility] Lipase [Catalytic activity/Vol] 227 U/L 73-393 [facility] Urea nitrogen/Creatinine [Mass ratio] 7.7 mg/mg 10-20 [facility] - Hematology and Cell countsOrdered By: Dr. Gandhi on 07-04-2022 Erythrocyte distribution width (RBC) [Entitic vol] 41.3 fL 35.1-43.9 [facility] Erythrocyte distribution width (RBC) [Ratio] 12.1 % 11.6-14.6 [facility] Immature granulocytes/100 WBC (Bld) 0.300 % 0.0-0.9 [facility] Comment on above: IG% - Immature Granu locytes (promyelocytes, myelocytes and metamyelocytes) > 1% indicates that a LEFT SHIFT is Present. MCH (RBC) [Entitic mass] 32.9 pg 27.0-32.0 [facility] Nucleated RBC/100 WBC (Bld) [Ratio] 0 % 0-5 [facility] MCHC Auto (RBC) [Mass/Vol]Or dered By: Dr. Gandhi on 07-04-2022 MCHC (RBC) [Mass/Vol] 35.6 g/dL 32-36 [facility] Mucus LM Ql (Urine sed)Order ed By: Dr. Gandhi on 07-04-2022 Mucus Ql (Urine sed) 0 SEEN /hpf [facility] Nitrite Test strip Ql (U)Ord ered By: Dr. Gandhi on 07-04-2022 Nitrite Ql (U) Negative Negative [facility] No Panel InformationOrdered By: Dr. Gandhi on 07-04-2022 Estimated Creatinine Clearance Calc 58.85 ml/min [facility] Estimated GFR (MDRD) Amer 66 mL/min >60 [facility] Comment on above: GFR Calc Estimated GFR (MDRD) Non-Af Amer 54 mL/min >60 [facility] Comment on above: Non- GFR Calc Platelets bldOrdered By: Dr. Gandhi on 07-04-2022 Platelets (Bld) [#/Vol] 188 10*3/uL 150-450 [facility] Protein Test strip Ql (U)Ord ered By: Dr. Gandhi on 07-04-2022 Protein Ql (U) 30 mg/dl Negative [facility] Serum or plasma albumin mc urement (mass/volume)Ordered By: Dr. Gandhi on 07-04-2022 Albumin [Mass/Vol] 4.0 g/dL 3.2-5.0 [facility] Serum or plasma albumin/glob ulin mass ratioOrdered By: Dr. Gandhi on 07-04-2022 Albumin/Globulin [Mass ratio] 1.0 {ratio} 0.9-2.4 [facility] Serum or plasma calcium mc urement (mass/volume)Ordered By: Dr. Gandhi on 07-04-2022 Calcium [Mass/Vol] 9.2 mg/dL 8.5-10.1 [facility] Serum or plasma creatinine m easurement (mass/volume)Ordered By: Dr. Gandhi on 07-04-2022 Creatinine [Mass/Vol] 1.43 mg/dL 0.70-1.30 [facility] Comment on above: The validity of the calculated GFR & GFRAA in patients over 70 years has not been determined. Clinical correlation is essential. Serum or plasma urea nitroge n measurement (mass/volume)Ordered By: Dr. Gandhi on 07-04-2022 Urea nitrogen [Mass/Vol] 11 mg/dL 7-18 [facility] Squamous epithelial cells de tection in urine sediment by light microscopyOrdered By: Dr. Gandhi on 07-04-2022 Epithelial cells.squamous LM Ql (Urine sed) 0-5 SEEN /hpf 0-5 [facility] Thin prep Papanicolaou smear with manual screeningOrdered By: Dr. Gandhi on 07-04-2022 Thin prep Papanicolaou smear with manual screening 14 U/L 15-37 [facility] Thin prep Papanicolaou smear with manual screening 10 5-15 [facility] Urine blood detectionOrdered By: Dr. Gandhi on 07-04-2022 RBC Ql (U) Negative Negative [facility] RBC Ql (U) 0 SEEN /hpf 0-5 [facility] Urine clarityOrdered By: Dr. Gandhi on 07-04-2022 Clarity (U) Sl. Cloudy Clear [facility] Urine color determinationOrd ered By: Dr. Gandhi on 07-04-2022 Color (U) Yellow Yellow [facility] Urine glucose detectionOrder ed By: Dr. Gandhi on 07-04-2022 Glucose Ql (U) Normal mg/dl Normal [facility] Urine leukocyte esterase det ection by dipstickOrdered By: Dr. Gandhi on 07-04-2022 Leukocyte esterase Test strip Ql (U) 25 /ul Negative [facility] Urine pHOrdered By: Dr. Sajan ferrer on 07-04-2022 pH (U) 7.0 [pH] 5.0 - 8.0 [facility] Urine sediment bacteria coun t by microscopy (number/high power field)Ordered By: Dr. Gandhi on 07-04-2022 Bacteria LM.HPF (Urine sed) [#/Area] 2 /[HPF] None Seen [facility] Urine specific gravity measu rementOrdered By: Dr. Gandhi on 07-04-2022 Specific gravity (U) [Rel density] 1.010 1.002-1.03 0 [facility] Urobilinogen Auto test strip Ql (U)Ordered By: Dr. 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 Patient agreed. Eugene Hinds [employer] Work[employer] Allergies As of Date: 05/23/2022 Noted Allergy Reaction CYCLOBENZAPRINE 03/26/2021 9 - Itching LISINOPRIL 05/07/2013 7 - Swelling Comments: mouth and throat NARCOTICS (OPIOIDS - MORPHINE KELLY*11/27/2020 9 - Itching TRAMADOL 01/01/2016 9 - Itching VICODIN (HYDROCODONE-ACETAMINOPHE *05/07/2013 7 - Swelling Comments: mouth and throat Date Reviewed: 05/16/2022 Reviewed by: Rhona Samayoa LPN - Fully Assessed Reason for Visit: Results [95] Prescriptions as of 05/23/2022 - metFORMIN (GLUCOPHAGE) 500 mg tablet Take 1 tablet by mouth twice daily with meals. - loratadine (CLARITIN) 10 mg tablet Take 1 tablet by mouth once daily. - pravastatin (PRAVACHOL) 40 mg tablet Take 1 tablet by mouth once daily. - pravastatin (PRAVACHOL) 20 mg tablet Take 1 tablet by mouth once daily. - amitriptyline (ELAVIL) 25 mg tablet Take 1 tablet by mouth daily at bedtime. - aspirin, enteric coated (ASPIRIN, ENTERIC COATED) 81 mg EC tablet Take 1 tablet by mouth once daily. - pantoprazole DR (PROTONIX) 40 mg tablet Take 1 tablet by mouth once daily. - Cholecalciferol, Vitamin D3, 125 mcg (5,000 unit) cap Take 1 capsule by mouth once daily. - hydroCHLOROthiazide (HYDRODIURIL, ESIDRIX) 25 mg tablet Take 1 tablet by mouth once daily. - tamsulosin (FLOMAX) 0.4 mg Take 1 capsule by mouth once daily. 30 minutes after the same meal each day. - insulin glargine (LANTUS SOLOSTAR U-100 INSULIN) 100 unit/mL (3 mL) Inject 10 Units subcutaneously daily at bedtime. - naproxen (NAPROSYN) 500 mg tablet Take 1 tablet by mouth twice daily as needed for pain. As needed for pain - amLODIPine (NORVASC) 10 mg tablet Take 1 tablet by mouth once daily. PER HEART GROUP. - gabapentin (NEURONTIN) 300 mg capsule Take 1 capsule by mouth twice daily for 90 days. - levETIRAcetam (KEPPRA) 500 mg tablet Take 1 tablet by mouth twice daily. Per Dr. Burnett - losartan (COZAAR) 25 mg tablet Take 1 tablet by mouth once daily. - magnesium oxide (MAG-OX) 400 mg (241.3 mg magnesium) tablet Take 1 tablet by mouth twice daily. - GAS RELIEF 80, SIMETHICONE, ORAL Take 1 tablet by mouth three times daily. - escitalopram oxalate (LEXAPRO) 10 mg tablet Take 1 tablet by mouth once daily. - latanoprost (XALATAN) 0.005 % ophthalmic [...] as needed. 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] 10/05/2021 Coronary artery disease involving tlingit & haida santana*09/25/2011 Posttraumatic stress disorder [F43.10] 03/10/2022 Lower urinary tract symptoms (LUTS) [R39.9] 10/15/2021 Encounter Status:Closed by EUGENE HINDS CMA on 05/23/22 Normal [facility] Absolute lymphocyte counton 03-25-2022 Lymphocytes Auto (Unsp spec) [#/Vol] 3.72 10*3/uL 0.83-4.51 [facility] Work Phone: Atypical perinuclear antineu trophil cytoplasmic antibodies measurementon 03-25-2022 Neutrophil cytoplasmic Ab.perinuclear.atypical IF (S) [Titer] <1:20 titer Neg:<1:20 [facility] Work Phone: Comment on above: The atypical pANCA p attern has been observed in asignificant percentage of patients with ulcerative colitis,primary sclerosing cholangitis and autoimmune hepatitis. Basophil percentageon 2021 Ammonia (P) [Moles/Vol] 38.0 umol/L 11-32 [facility] Work Phone: Basophil percentage < 0.2 AI 0.0-0.9 [facility] Work Phone: Basophils/100 WBC (Bld) 0.5 % 0-1 [facility] Work Phone: [phone] Bilirubin [Mass/Vol] 0.90 mg/dL 0.20-1.00 [facility] Work Phone: Comment on above: For patients on eltr ombopag therapy, use of Dimension [place] TBIL is not recommended. Chloride [Moles/Vol] 104 mmol/L 98-107 [facility] Work Phone: Cholesterol [Mass/Vol] 138 mg/dL <200 [facility] Work Phone: Comment on above: <200 mg/dL Desirable 200-240 mg/dL Borderline >240 mg/dL High Risk Eosinophils/100 WBC (Bld) 0.6 % 0-5 [facility] Work Phone: Glucose [Mass/Vol] 81 mg/dL 74-106 [facility] Work Phone: Neutrophils (Bld) [#/Vol] 11.0 10*3/uL 2.0-7.7 [facility] Work Phone: Neutrophils/100 WBC (Bld) 68.9 % 47-70 [facility] Work Phone: Potassium [Moles/Vol] 3.2 mmol/L 3.5-5.1 [facility] Work Phone: [phone] Protein [Mass/Vol] 8.0 g/dL 6.4-8.2 [facility] Work Phone: Sodium [Moles/Vol] 138 mmol/L 136-145 [facility] Work Phone: Triglyceride [Mass/Vol] 107 mg/dL <199 [facility] Work Phone: Comment on above: The drugs N-Acetylcy steine and Metamizole may falsely depress this assay.Serum Triglycerides Reference Interval Normal <150 mg/dL Borderline high 150 - 199 mg/dL High 200 - 499 mg/dL Very High > or = 500 mg/dL WBC (Bld) [#/Vol] 16.0 10*3/uL 4.4-11.0 [facility] Work Phone: Blood erythrocytes count (nu mber/volume)on 03-25-2022 RBC (Bld) [#/Vol] 4.43 10*6/uL 4.6-6.2 [facility] Work Phone: Blood hemoglobin measurement (mass/volume)on 03-25-2022 Hemoglobin (Bld) [Mass/Vol] 13.8 g/dL 13.0-16.5 [facility] Work Phone: Blood lymphocytes/100 leukoc yteson 03-25-2022 Lymphocytes/100 WBC (Bld) 23.2 % 19-41 [facility] Work Phone: Blood monocytes/100 leukocyt eson 03-25-2022 Monocytes/100 WBC (Bld) 6.6 % 0-10 [facility] Work Phone: Blood platelet mean volumeon 03-25-2022 Platelet mean volume (Bld) [Entitic vol] 9.9 fL 6.2-12.0 [facility] Work Phone: Determination of erythrocyte mean corpuscular volume (MCV)on 03-25-2022 MCV (RBC) [Entitic vol] 92.1 fL 80-94 [facility] Work Phone: Erythrocyte sedimentation ra daysi 03-25-2022 ESR (Bld) [Velocity] 20 mm/h 0-20 [facility] Hematocrit Auto (Bld) [Volum e fraction]on 03-25-2022 Hematocrit (Bld) [Volume fraction] 40.8 % 40-54 [facility] Work Phone: INR in Blood by Coagulation assayon 03-25-2022 INR Coag (Bld) [Relative time] 1.1 {INR} [facility] Work Phone: Laboratory - Chemistry and C hemistry - challengeon 03-25-2022 ALP [Catalytic activity/Vol] 59 U/L 45-117 [facility] Work Phone: ALT [Catalytic activity/Vol] 27 U/L 16-61 [facility] Work Phone: CO2 [Moles/Vol] 24.0 mmol/L 21.0-32.0 [facility] Work Phone: Globulin (S) [Mass/Vol] 3.5 g/dL 2.2-4.2 [facility] Work Phone: Lipase [Catalytic activity/Vol] 188 U/L 73-393 [facility] Work Phone: Urea nitrogen/Creatinine [Mass ratio] 19.1 mg/mg 10-20 [facility] Work Phone: Laboratory - Coagulationon 0 03-25-2022 PT Coag (PPP) [Time] 13.9 s 11.7-14.9 [facility] Work Phone: Laboratory - Hematology and Cell countson 03-25-2022 Erythrocyte distribution width (RBC) [Entitic vol] 43.1 fL 35.1-43.9 [facility] Work Phone: Erythrocyte distribution width (RBC) [Ratio] 12.7 % 11.6-14.6 [facility] Work Phone: Immature granulocytes/100 WBC (Bld) 0.200 % 0.0-0.9 [facility] Work Phone: Comment on above: IG% - Immature Granu locytes (promyelocytes, myelocytes and metamyelocytes) > 1% indicates that a LEFT SHIFT is Present. MCH (RBC) [Entitic mass] 31.2 pg 27.0-32.0 [facility] Work Phone: Nucleated RBC/100 WBC (Bld) [Ratio] 0 % 0-5 [facility] Work Phone: MCHC Auto (RBC) [Mass/Vol]on 03-25-2022 MCHC (RBC) [Mass/Vol] 33.8 g/dL 32-36 [facility] Work Phone: No Panel Informationon 03-25 Centromere B Antibody <0.2 AI 0.0-0.9 [facility] Work Phone: Ceruloplasmin 23.9 mg/dL 16.0-31.0 [facility] Work Phone: Estimated GFR (MDRD) Amer 89 mL/min >60 [facility] Work Phone: Comment on above: GFR Calc Estimated GFR (MDRD) Non-Af Amer 73 mL/min >60 [facility] Work Phone: Comment on above: Non- GFR Calc Haptoglobin 142 mg/dL 29-370 [facility] Work Phone: Comment on above: Performed at: [address] [id number] Director: Andre Doty PhD, Phone: [phone] at: [facility] [id number] Director: Fam Talbert MD, Phone: [phone] Immunoglobulin G4 75 mg/dL 2-96 [facility] Work Phone: PLUGMAN Antibody <0.2 AI 0.0-0.9 [facility] Work Phone: Platelets bldon 03-25-2022 Platelets (Bld) [#/Vol] 199 10*3/uL 150-450 [facility] Work Phone: Serum DNA double strand anti body assay (units/volume)on 03-25-2022 DNA double strand Ab Qn (S) [IU]/mL 0-9 [facility] Work Phone: Comment on above: Negative <5 Equivoca l 5 - 9 Positive >9 Serum IgG subclass 1 measure ment (mass/volume)on 03-25-2022 IgG subclass 1 (S) [Mass/Vol] 649 mg/dL 248-810 [facility] Work Phone: Serum IgG subclass 2 measure ment (mass/volume)on 03-25-2022 IgG subclass 2 (S) [Mass/Vol] 291 mg/dL 130-555 [facility] Work Phone: Serum IgG subclass 3 measure ment (mass/volume)on 03-25-2022 IgG subclass 3 (S) [Mass/Vol] 36 mg/dL 15-102 [facility] Work Phone: Serum Christie-1 antibody assay (u nits/volume)on 03-25-2022 Christie-1 extractable nuclear Ab Qn (S) <0.2 AI 0.0-0.9 [facility] Work Phone: Serum Scl-70 extractable nuc lear antibody assay (units/volume)on 03-25-2022 SCL-70 extractable nuclear Ab Qn (S) <0.2 AI 0.0-0.9 [facility] Work Phone: Serum Wadsworth extractable nucl ear antibody detectionon 03-25-2022 W[place]sworth extractable nuclear Ab Ql (S) <0.2 AI 0.0-0.9 [facility] Work Phone: Serum classic neutrophil cyt oplasmic antibody assay (units/volume)on 03-25-2022 Neutrophil cytoplasmic Ab.classic Qn (S) <1:20 titer Neg:<1:20 [facility] Work Phone: Serum mitochondria antibody detectionon 03-25-2022 Mitochondria Ab Ql (S) <20.0 Units 0.0-20.0 [facility] Work Phone: Comment on above: Negative 0.0 - 20.0 Equivocal 20.1 - 24.9 Positive >24.9Mitochondrial (M2) Antibodies are found in 90-96% ofpatients with primary biliary cirrhosis.Performed at: [facility] [id number] Director: Andre Doty PhD, Phone: [phone] Serum or plasma C reactive p rotein measurement (mass/volume)on 03-25-2022 CRP [Mass/Vol] 5.28 mg/L 0.0-3.0 [facility] Work Phone: Comment on above: C-Reactive Protein ( CRP) provides useful information for thediagnosis, therapy and monitoring of inflammatory processesand associated diseases. For the evaluation of Relative Riskfor Cardiovascular Disease, a High Sensitivity CRP (HSCRP)should be ordered. Serum or plasma IgG measurem ent (mass/volume)on 03-25-2022 IgG [Mass/Vol] 1152 mg/dL [phone] [facility] Work Phone: Serum or plasma actin IgG an tibody assay (units/volume)on 03-25-2022 Actin IgG Qn 8 Units 0-19 [facility] Work Phone: Comment on above: Negative 0 - 19 Weak positive 20 - 30 Moderate to strong positive >30 Actin Antibodies are found in 52-85% of patients with autoimmune hepatitis or chronic active hepatitis and in 22% of patients with primary biliary cirrhosis. Serum or plasma albumin mc urement (mass/volume)on 03-25-2022 Albumin [Mass/Vol] 4.5 g/dL 3.2-5.0 [facility] Work Phone: Serum or plasma albumin/glob ulin mass ratioon 03-25-2022 Albumin/Globulin [Mass ratio] 1.3 {ratio} 0.9-2.4 [facility] Work Phone: Serum or plasma angiotensin converting enzyme measurement (enzymatic activity/volume)on 03-25-2022 Angiotensin converting enzyme [Catalytic activity/Vol] 37 U/L 14-82 [facility] Work Phone: Serum or plasma calcium mc urement (mass/volume)on 03-25-2022 Calcium [Mass/Vol] 9.7 mg/dL 8.5-10.1 [facility] Work Phone: Serum or plasma cholesterol in HDL measurement (mass/volume)on 03-25-2022 Cholesterol in HDL [Mass/Vol] 49 mg/dL >40 [facility] Work Phone: Comment on above: The drugs N-Acetylcy steine and Metamizole may falsely depress this assay. Reference Range HDL <40 mg/dL Low HDL Cholesterol HDL >or= 60 mg/dL High HDL Cholesterol Serum or plasma cholesterol in VLDL measurement (mass/volume)on 03-25-2022 Cholesterol in VLDL [Mass/Vol] 21 mg/dL 5-40 [facility] Work Phone: Serum or plasma creatinine m easurement (mass/volume)on 03-25-2022 Creatinine [Mass/Vol] 1.10 mg/dL 0.70-1.30 [facility] Work Phone: Comment on above: The validity of the calculated GFR & GFRAA in patients over 70 years has not been determined. Clinical correlation is essential. Serum or plasma low density lipoprotein (LDL) cholesterol measurement (mass/volume)on 03-25-2022 Cholesterol in LDL [Mass/Vol] 68 mg/dL 0-130 [facility] Work Phone: Serum or plasma urea nitroge n measurement (mass/volume)on 03-25-2022 Urea nitrogen [Mass/Vol] 21 mg/dL 7-18 [facility] Work Phone: Serum perinuclear neutrophil cytoplasmic antibody titer by immunofluorescenceon 03-25-2022 Neutrophil cytoplasmic Ab.perinuclear IF (S) [Titer] <1:20 titer Neg:<1:20 [facility] Work Phone: Comment on above: The presence of posi tive fluorescence exhibiting P-ANCA orC-ANCA patterns alone is not specific for the diagnosis ofWegener's Granulomatosis (WG) or microscopic polyangiitis.Decisions about treatment should not be based solely onANCA IFA results. The [employer] ANCA Group Consensusrecommends follow up testing of positive sera with both CO-3 and MPO-ANCA enzyme immunoassays. As many as 5% serumsamples are positive only by EIA. Ref. AM J Clin Lgufjb1204;111:507-513. Thin prep Papanicolaou smear with manual screeningon 03-25-2022 Thin prep Papanicolaou smear with manual screening 14 U/L 15-37 [facility] Work Phone: Thin prep Papanicolaou smear with manual screening 10 5-15 [facility] Work Phone: Thin prep Papanicolaou smear with manual screening 141 U/L 87-241 [facility] Work Phone: Thin prep Papanicolaou smear with manual screening 100 ug/dL 69-132 [facility] Work Phone: Comment on above: Detection Limit = 5 Glucose Glucometer (BldC) [M ass/Vol]on 03-07-2022 Glucose [Mass/Vol] 283 mg/dL 74-106 [facility] Work Phone: Comment on above: MANAGEMENT OF PATIEN T CARE PER NURSING PROTOCOL Absolute lymphocyte counton 03-06-2022 Lymphocytes Auto (Unsp spec) [#/Vol] 3.50 10*3/uL 0.83-4.51 [facility] Work Phone: Basophil percentageon 2021 Basophils/100 WBC (Bld) 0.6 % 0-1 [facility] Work Phone: Bilirubin [Mass/Vol] 0.40 mg/dL 0.20-1.00 [facility] Work Phone: Comment on above: For patients on eltr ombopag therapy, use of Dimension [place] TBIL is not recommended. Chloride [Moles/Vol] 105 mmol/L 98-107 [facility] Work Phone: Eosinophils/100 WBC (Bld) 1.7 % 0-5 [facility] Work Phone: Glucose [Mass/Vol] 327 mg/dL 74-106 [facility] Work Phone: Comment on above: Glucose result great er than or equal to 200 mg/dLsuggests DIABETES MELLITUS per A.D.A. criteria. Lactate [Moles/Vol] 1.8 mmol/L 0.4-2.0 [facility] Work Phone: Neutrophils (Bld) [#/Vol] 5.8 10*3/uL 2.0-7.7 [facility] Work Phone: Neutrophils/100 WBC (Bld) 55.4 % 47-70 [facility] Work Phone: Potassium [Moles/Vol] 3.9 mmol/L 3.5-5.1 [facility] Work Phone: Comment on above: Slight Hemolysis, Re sult may be falsely increased. Protein [Mass/Vol] 7.9 g/dL 6.4-8.2 [facility] Work Phone: [phone] Sodium [Moles/Vol] 138 mmol/L 136-145 [facility] Work Phone: WBC (Bld) [#/Vol] 10.5 10*3/uL 4.4-11.0 [facility] Work Phone: Blood erythrocytes count (nu mber/volume)on 03-06-2022 RBC (Bld) [#/Vol] 4.28 10*6/uL 4.6-6.2 [facility] Work Phone: Blood hemoglobin measurement (mass/volume)on 03-06-2022 Hemoglobin (Bld) [Mass/Vol] 13.5 g/dL 13.0-16.5 [facility] Work Phone: Blood lymphocytes/100 leukoc yteson 03-06-2022 Lymphocytes/100 WBC (Bld) 33.5 % 19-41 [facility] Work Phone: Blood monocytes/100 leukocyt eson 03-06-2022 Monocytes/100 WBC (Bld) 8.4 % 0-10 [facility] Work Phone: Blood platelet mean volumeon 03-06-2022 Platelet mean volume (Bld) [Entitic vol] 10.0 fL 6.2-12.0 [facility] Work Phone: Determination of erythrocyte mean corpuscular volume (MCV)on 03-06-2022 MCV (RBC) [Entitic vol] 93.2 fL 80-94 [facility] Work Phone: Hematocrit Auto (Bld) [Volum e fraction]on 03-06-2022 Hematocrit (Bld) [Volume fraction] 39.9 % 40-54 [facility] Work Phone: Laboratory - Chemistry and C hemistry - challengeon 03-06-2022 ALP [Catalytic activity/Vol] 79 U/L 45-117 [facility] Work Phone: ALT [Catalytic activity/Vol] 30 U/L 16-61 [facility] Work Phone: CO2 [Moles/Vol] 27.0 mmol/L 21.0-32.0 [facility] Work Phone: Globulin (S) [Mass/Vol] 3.8 g/dL 2.2-4.2 [facility] Work Phone: Lipase [Catalytic activity/Vol] 709 U/L 73-393 [facility] Work Phone: Urea nitrogen/Creatinine [Mass ratio] 12.8 mg/mg 10-20 [facility] Work Phone: Laboratory - Hematology and Cell countson 03-06-2022 Erythrocyte distribution width (RBC) [Entitic vol] 44.8 fL 35.1-43.9 [facility] Work Phone: Erythrocyte distribution width (RBC) [Ratio] 13.2 % 11.6-14.6 [facility] Work Phone: Immature granulocytes/100 WBC (Bld) 0.400 % 0.0-0.9 [facility] Work Phone: Comment on above: IG% - Immature Granu locytes (promyelocytes, myelocytes and metamyelocytes) > 1% indicates that a LEFT SHIFT is Present. MCH (RBC) [Entitic mass] 31.5 pg 27.0-32.0 [facility] Work Phone: Nucleated RBC/100 WBC (Bld) [Ratio] 0 % 0-5 [facility] Work Phone: MCHC Auto (RBC) [Mass/Vol]on 03-06-2022 MCHC (RBC) [Mass/Vol] 33.8 g/dL 32-36 [facility] Work Phone: No Panel Informationon 03-06 Estimated Creatinine Clearance Calc 60.40 ml/min [facility] Work Phone: Estimated GFR (MDRD) Amer 67 mL/min >60 [facility] Work Phone: Comment on above: GFR Calc Estimated GFR (MDRD) Non-Af Amer 55 mL/min >60 [facility] Work Phone: Comment on above: Non- GFR Calc Ethyl Alcohol Level < 3.0 mg/dL [facility] Work Phone: Comment on above: The serum:whole bloo d ethanol ratio is approximately 1.14and varies slightly with hematocrit. Medical Alcohol reference interval and critical value innon-tolerant individuals; 50 - 100 Impairment 100 Intoxication 100 - 250 Severe Poisoning 250 - 400 Deep/possible fatal coma Platelets bldon 03-06-2022 Platelets (Bld) [#/Vol] 213 10*3/uL 150-450 [facility] Work Phone: Serum or plasma albumin mc urement (mass/volume)on 03-06-2022 Albumin [Mass/Vol] 4.1 g/dL 3.2-5.0 [facility] Work Phone: Serum or plasma albumin/glob ulin mass ratioon 03-06-2022 Albumin/Globulin [Mass ratio] 1.1 {ratio} 0.9-2.4 [facility] Work Phone: Serum or plasma calcium mc urement (mass/volume)on 03-06-2022 Calcium [Mass/Vol] 9.6 mg/dL 8.5-10.1 [facility] Work Phone: Serum or plasma creatinine m easurement (mass/volume)on 03-06-2022 Creatinine [Mass/Vol] 1.41 mg/dL 0.70-1.30 [facility] Work Phone: Comment on above: The validity of the calculated GFR & GFRAA in patients over 70 years has not been determined. Clinical correlation is essential. Serum or plasma urea nitroge n measurement (mass/volume)on 03-06-2022 Urea nitrogen [Mass/Vol] 18 mg/dL 7-18 [facility] Work Phone: Thin prep Papanicolaou smear with manual screeningon 03-06-2022 Thin prep Papanicolaou smear with manual screening 25 U/L 15-37 [facility] Work Phone: Comment on above: Slight Hemolysis, Re sult may be falsely increased. Thin prep Papanicolaou smear with manual screening 6 5-15 [facility] Work Phone: Basophil percentageon 2021 Bilirubin [Mass/Vol] 0.80 mg/dL 0.20-1.00 [facility] Work Phone: Comment on above: For patients on eltr ombopag therapy, use of Dim[place] TBIL is not recommended. Chloride [Moles/Vol] 106 mmol/L 98-107 [facility] Work Phone: Glucose [Mass/Vol] 137 mg/dL 74-106 [facility] Work Phone: Comment on above: Fasting Glucose resu lt greater than or equal to 126 mg/dL suggests DIABETES MELLITUS per A.D.A. criteria. Potassium [Moles/Vol] 3.6 mmol/L 3.5-5.1 [facility] Work Phone: Protein [Mass/Vol] 7.2 g/dL 6.4-8.2 [facility] Work Phone: Sodium [Moles/Vol] 139 mmol/L 136-145 [facility] Work Phone: Glucose Glucometer (BldC) [M ass/Vol]on 03-04-2022 Glucose [Mass/Vol] 215 mg/dL 74-106 [facility] Work Phone: Comment on above: MANAGEMENT OF PATIEN T CARE PER NURSING PROTOCOL Laboratory - Chemistry and C hemistry - challengeon 03-04-2022 ALP [Catalytic activity/Vol] 50 U/L 45-117 [facility] Work Phone: ALT [Catalytic activity/Vol] 28 U/L 16-61 [facility] Work Phone: CO2 [Moles/Vol] 28.0 mmol/L 21.0-32.0 [facility] Work Phone: Globulin (S) [Mass/Vol] 3.6 g/dL 2.2-4.2 [facility] Work Phone: Urea nitrogen/Creatinine [Mass ratio] 9.4 mg/mg 10-20 [facility] Work Phone: No Panel Informationon 03-04 Estimated Creatinine Clearance Calc 88.72 ml/min [facility] Work Phone: Estimated GFR (MDRD) Amer 105 mL/min >60 [facility] Work Phone: Comment on above: GFR Calc Estimated GFR (MDRD) Non-Af Amer 86 mL/min >60 [facility] Work Phone: Comment on above: Non- GFR Calc Serum or plasma albumin mc urement (mass/volume)on 03-04-2022 Albumin [Mass/Vol] 3.6 g/dL 3.2-5.0 [facility] Work Phone: Serum or plasma albumin/glob ulin mass ratioon 03-04-2022 Albumin/Globulin [Mass ratio] 1.0 {ratio} 0.9-2.4 [facility] Work Phone: Serum or plasma calcium mc urement (mass/volume)on 03-04-2022 Calcium [Mass/Vol] 9.3 mg/dL 8.5-10.1 [facility] Work Phone: Serum or plasma creatinine m easurement (mass/volume)on 03-04-2022 Creatinine [Mass/Vol] 0.96 mg/dL 0.70-1.30 [facility] Work Phone: Comment on above: The validity of the calculated GFR & GFRAA in patients over 70 years has not been determined. Clinical correlation is essential. Serum or plasma urea nitroge n measurement (mass/volume)on 03-04-2022 Urea nitrogen [Mass/Vol] 9 mg/dL 7-18 [facility] Work Phone: Thin prep Papanicolaou smear with manual screeningon 03-04-2022 Thin prep Papanicolaou smear with manual screening 19 U/L 15-37 [facility] Work Phone: Thin prep Papanicolaou smear with manual screening 5 5-15 [facility] Work Phone: Absolute lymphocyte counton 03-03-2022 Lymphocytes Auto (Unsp spec) [#/Vol] 2.96 10*3/uL 0.83-4.51 [facility] Work Phone: Basophil percentageon 2021 Basophils/100 WBC (Bld) 0.6 % 0-1 [facility] Work Phone: Eosinophils/100 WBC (Bld) 2.2 % 0-5 [facility] Work Phone: [phone] Neutrophils (Bld) [#/Vol] 5.5 10*3/uL 2.0-7.7 [facility] Work Phone: Neutrophils/100 WBC (Bld) 57.7 % 47-70 [facility] Work Phone: WBC (Bld) [#/Vol] 9.5 10*3/uL 4.4-11.0 [facility] Work Phone: [phone] Blood erythrocytes count (nu mber/volume)on 03-03-2022 RBC (Bld) [#/Vol] 4.59 10*6/uL 4.6-6.2 [facility] Work Phone: Blood hemoglobin measurement (mass/volume)on 03-03-2022 Hemoglobin (Bld) [Mass/Vol] 14.4 g/dL 13.0-16.5 [facility] Work Phone: Blood lymphocytes/100 leukoc yteson 03-03-2022 Lymphocytes/100 WBC (Bld) 31.1 % 19-41 [facility] Work Phone: Blood monocytes/100 leukocyt eson 03-03-2022 Monocytes/100 WBC (Bld) 8.0 % 0-10 [facility] Work Phone: Blood platelet mean volumeon 03-03-2022 Platelet mean volume (Bld) [Entitic vol] 9.8 fL 6.2-12.0 [facility] Work Phone: Determination of erythrocyte mean corpuscular volume (MCV)on 03-03-2022 MCV (RBC) [Entitic vol] 92.8 fL 80-94 [facility] Work Phone: Hematocrit Auto (Bld) [Volum e fraction]on 03-03-2022 Hematocrit (Bld) [Volume fraction] 42.6 % 40-54 [facility] Work Phone: Laboratory - Chemistry and C hemistry - challengeon 03-03-2022 Magnesium [Mass/Vol] 1.8 mg/dL 1.6-2.6 [facility] Work Phone: Laboratory - Hematology and Cell countson 03-03-2022 Erythrocyte distribution width (RBC) [Entitic vol] 43.8 fL 35.1-43.9 [facility] Work Phone: Erythrocyte distribution width (RBC) [Ratio] 12.9 % 11.6-14.6 [facility] Work Phone: Immature granulocytes/100 WBC (Bld) 0.400 % 0.0-0.9 [facility] Work Phone: Comment on above: IG% - Immature Granu locytes (promyelocytes, myelocytes and metamyelocytes) > 1% indicates that a LEFT SHIFT is Present. MCH (RBC) [Entitic mass] 31.4 pg 27.0-32.0 [facility] Work Phone: Nucleated RBC/100 WBC (Bld) [Ratio] 0 % 0-5 [facility] Work Phone: MCHC Auto (RBC) [Mass/Vol]on 03-03-2022 MCHC (RBC) [Mass/Vol] 33.8 g/dL 32-36 [facility] Work Phone: Platelets bldon 03-03-2022 Platelets (Bld) [#/Vol] 183 10*3/uL 150-450 [facility] Work Phone: Erythrocyte sedimentation ra daysi 03-02-2022 ESR (Bld) [Velocity] 35 mm/h 0-20 [facility] Work Phone: Laboratory - Chemistry and C hemistry - challengeon 03-02-2022 Lipase [Catalytic activity/Vol] 900 U/L 73-393 [facility] Work Phone: No Panel Informationon 03-02 C-Reactive Protein High Sensitivity 54.20 mg/L <3.00 [facility] Work Phone: Comment on above: Low Relative Risk of CVD <1.0 mg/L Average Relative Risk of CVD 1.0 - 3.0 mg/L High Relative Risk of CVD >3.0 mg/L Basophil percentageon 2021 Basophil percentage 3.0 mg/dL 2.5-4.9 [facility] Work Phone: [phone] Direct bilirubinon 2 Bilirubin.direct [Mass/Vol] 0.28 mg/dL 0.00-0.30 [facility] Work Phone: Absolute lymphocyte counton 02-27-2022 Lymphocytes Auto (Unsp spec) [#/Vol] 2.09 10*3/uL 0.83-4.51 [facility] Work Phone: Basophil percentageon 2021 Basophil percentage 0 SEEN /hpf 0-5 [facility] Work Phone: Basophil percentage < 10.0 umol/L 11-32 [facility] Work Phone: Basophils/100 WBC (Bld) 0.5 % 0-1 [facility] Work Phone: Bilirubin [Mass/Vol] 0.60 mg/dL 0.20-1.00 [facility] Work Phone: Comment on above: For patients on eltr ombopag therapy, use of [place] TBIL is not recommended. Chloride [Moles/Vol] 105 mmol/L 98-107 [facility] Work Phone: Eosinophils/100 WBC (Bld) 0.3 % 0-5 [facility] Work Phone: Glucose [Mass/Vol] 153 mg/dL 74-106 [facility] Work Phone: Comment on above: Fasting Glucose resu lt greater than or equal to 126 mg/dL suggests DIABETES MELLITUS per A.D.A. criteria. Neutrophils (Bld) [#/Vol] 9.6 10*3/uL 2.0-7.7 [facility] Work Phone: Neutrophils/100 WBC (Bld) 74.9 % 47-70 [facility] Work Phone: Potassium [Moles/Vol] 4.3 mmol/L 3.5-5.1 [facility] Work Phone: Protein [Mass/Vol] 8.5 g/dL 6.4-8.2 [facility] Work Phone: Sodium [Moles/Vol] 136 mmol/L 136-145 [facility] Work Phone: WBC (Bld) [#/Vol] 12.8 10*3/uL 4.4-11.0 [facility] Work Phone: Bilirubin Test strip Ql (U)o n 02-27-2022 Bilirubin Ql (U) Negative Negative [facility] Work Phone: Blood erythrocytes count (nu mber/volume)on 02-27-2022 RBC (Bld) [#/Vol] 4.65 10*6/uL 4.6-6.2 [facility] Work Phone: Blood hemoglobin measurement (mass/volume)on 02-27-2022 Hemoglobin (Bld) [Mass/Vol] 15.0 g/dL 13.0-16.5 [facility] Work Phone: Blood lymphocytes/100 leukoc yteson 02-27-2022 Lymphocytes/100 WBC (Bld) 16.3 % 19-41 [facility] Work Phone: Blood monocytes/100 leukocyt eson 02-27-2022 Monocytes/100 WBC (Bld) 7.6 % 0-10 [facility] Work Phone: Blood platelet mean volumeon 02-27-2022 Platelet mean volume (Bld) [Entitic vol] 10.4 fL 6.2-12.0 [facility] Work Phone: Determination of erythrocyte mean corpuscular volume (MCV)on 02-27-2022 MCV (RBC) [Entitic vol] 89.5 fL 80-94 [facility] Work Phone: Hematocrit Auto (Bld) [Volum e fraction]on 02-27-2022 Hematocrit (Bld) [Volume fraction] 41.6 % 40-54 [facility] Work Phone: Ketones Test strip Ql (U)on 02-27-2022 Ketones Ql (U) Negative Negative [facility] Work Phone: Laboratory - Chemistry and C hemistry - challengeon 02-27-2022 ALP [Catalytic activity/Vol] 73 U/L 45-117 [facility] Work Phone: ALT [Catalytic activity/Vol] 30 U/L 16-61 [facility] Work Phone: CO2 [Moles/Vol] 25.0 mmol/L 21.0-32.0 [facility] Work Phone: Globulin (S) [Mass/Vol] 4.1 g/dL 2.2-4.2 [facility] Work Phone: Lipase [Catalytic activity/Vol] 1557 U/L 73-393 [facility] Work Phone: Urea nitrogen/Creatinine [Mass ratio] 8.2 mg/mg 10-20 [facility] Work Phone: Laboratory - Hematology and Cell countson 02-27-2022 Erythrocyte distribution width (RBC) [Entitic vol] 42.2 fL 35.1-43.9 [facility] Work Phone: Erythrocyte distribution width (RBC) [Ratio] 12.8 % 11.6-14.6 [facility] Work Phone: Immature granulocytes/100 WBC (Bld) 0.400 % 0.0-0.9 [facility] Work Phone: Comment on above: IG% - Immature Granu locytes (promyelocytes, myelocytes and metamyelocytes) > 1% indicates that a LEFT SHIFT is Present. MCH (RBC) [Entitic mass] 32.3 pg 27.0-32.0 [facility] Work Phone: Nucleated RBC/100 WBC (Bld) [Ratio] 0 % 0-5 [facility] Work Phone: MCHC Auto (RBC) [Mass/Vol]on 02-27-2022 MCHC (RBC) [Mass/Vol] 36.1 g/dL 32-36 [facility] Work Phone: Mucus LM Ql (Urine sed)on Mucus Ql (Urine sed) 0 SEEN /hpf [facility] Work Phone: Nitrite Test strip Ql (U)on 02-27-2022 Nitrite Ql (U) Negative Negative [facility] Work Phone: No Panel Informationon 02-27 Estimated Creatinine Clearance Calc 74.98 ml/min [facility] Work Phone: Estimated GFR (MDRD) Amer 89 mL/min >60 [facility] Work Phone: Comment on above: GFR Calc Estimated GFR (MDRD) Non-Af Amer 73 mL/min >60 [facility] Work Phone: Comment on above: Non- GFR Calc Ethyl Alcohol Level < 3.0 mg/dL [facility] Work Phone: Comment on above: The serum:whole bloo d ethanol ratio is approximately 1.14and varies slightly with hematocrit. Medical Alcohol reference interval and critical value innon-tolerant individuals; 50 - 100 Impairment 100 Intoxication 100 - 250 Severe Poisoning 250 - 400 Deep/possible fatal coma Platelets bldon 02-27-2022 Platelets (Bld) [#/Vol] 197 10*3/uL 150-450 [facility] Work Phone: Protein Test strip Ql (U)on 02-27-2022 Protein Ql (U) 100 mg/dl Negative [facility] Work Phone: Serum or plasma albumin mc urement (mass/volume)on 02-27-2022 Albumin [Mass/Vol] 4.4 g/dL 3.2-5.0 [facility] Work Phone: Serum or plasma albumin/glob ulin mass ratioon 02-27-2022 Albumin/Globulin [Mass ratio] 1.1 {ratio} 0.9-2.4 [facility] Work Phone: Serum or plasma calcium mc urement (mass/volume)on 02-27-2022 Calcium [Mass/Vol] 9.8 mg/dL 8.5-10.1 [facility] Work Phone: Serum or plasma creatinine m easurement (mass/volume)on 02-27-2022 Creatinine [Mass/Vol] 1.10 mg/dL 0.70-1.30 [facility] Work Phone: Comment on above: The validity of the calculated GFR & GFRAA in patients over 70 years has not been determined. Clinical correlation is essential. Serum or plasma urea nitroge n measurement (mass/volume)on 02-27-2022 Urea nitrogen [Mass/Vol] 9 mg/dL 7-18 [facility] Work Phone: Squamous epithelial cells de tection in urine sediment by light microscopyon 02-27-2022 Epithelial cells.squamous LM Ql (Urine sed) 0 SEEN /hpf 0-5 [facility] Work Phone: Thin prep Papanicolaou smear with manual screeningon 02-27-2022 Thin prep Papanicolaou smear with manual screening 24 U/L 15-37 [facility] Work Phone: Thin prep Papanicolaou smear with manual screening 6 5-15 [facility] Work Phone: Urine blood detectionon -0 RBC Ql (U) 10 /ul Negative [facility] Work Phone: RBC Ql (U) 0 SEEN /hpf 0-5 [facility] Work Phone: Urine clarityon 02-27-2022 Clarity (U) Clear Clear [facility] Work Phone: Urine color determinationon 02-27-2022 Color (U) Yellow Yellow [facility] Work Phone: Urine glucose detectionon Glucose Ql (U) Normal mg/dl Normal [facility] Work Phone: Urine leukocyte esterase det ection by dipstickon 02-27-2022 Leukocyte esterase Test strip Ql (U) Negative Negative [facility] Work Phone: Urine pHon 02-27-2022 pH (U) 6.5 [pH] 5.0 - 8.0 [facility] Work Phone: Urine sediment bacteria coun t by microscopy (number/high power field)on 02-27-2022 Bacteria LM.HPF (Urine sed) [#/Area] 0 /[HPF] None Seen [facility] Work Phone: Urine specific gravity measu rementon 02-27-2022 Specific gravity (U) [Rel density] 1.010 1.002-1.03 0 [facility] Work Phone: Urobilinogen Auto test strip Ql (U)on 02-27-2022 Urobilinogen Ql (U) Normal mg/dl Normal [facility] Work Phone: XR CHEST PA/APon 12-10-2021 XR CHEST PA/AP EXAMINATION: ONE XRAY VIEW OF THE CHEST 12/10/2021 10:07 am COMPARISON: None. HISTORY: ORDERING SYSTEM PROVIDED HISTORY: chest pain, abd pain; TECHNOLOGIST PROVIDED HISTORY: Illness/Other Acuity: Acute Reason for Exam: chest pain, abd pain Cancer History: unk Surgery, Radiation History: unk Type of Encounter: Initial Additional signs and symptoms: unk FINDINGS: The lungs are without acute focal process. There is no effusion or pneumothorax. The cardiomediastinal silhouette is without acute process. The osseous structures are without acute process. IMPRESSION: No acute process. Workstation ID: [id number] Dictated by: SANDEEP JOHNSON on MonDec 10, 2021 11:50:52 AM EDT Transcribed by: SANDEEP JOHNSON on MonDec 10, 2021 11:50:52 AM EDT Finalized by: SANDEEP JOHNSON on MonDec 10, 2021 11:50:52 AM EDT [facility] Comment on above: Order Comment: Injur y/Trauma or Illness?:Illness/Other How long have you had these symptoms (acute/chronic)?:Acute Reason for exam?:chest pain, abd pain History of cancer?:unk Surgeries, chemotherapy, or radiation?:unk Type of Exam?:Initial Additional signs and symptoms?:unk Absolute lymphocyte counton 12-09-2021 Lymphocytes Auto (Unsp spec) [#/Vol] 2.47 10*3/uL 0.83-4.51 [facility] Work Phone: Basophil percentageon 2021 Basophils/100 WBC (Bld) 0.4 % 0-1 [facility] Work Phone: Bilirubin [Mass/Vol] 1.00 mg/dL 0.20-1.00 [facility] Work Phone: Comment on above: For patients on eltr ombopag therapy, use of Dimension [place] TBIL is not recommended. Chloride [Moles/Vol] 108 mmol/L 98-107 [facility] Work Phone: Eosinophils/100 WBC (Bld) 0.8 % 0-5 [facility] Work Phone: Glucose [Mass/Vol] 98 mg/dL 74-106 [facility] Work Phone: Neutrophils (Bld) [#/Vol] 7.2 10*3/uL 2.0-7.7 [facility] Work Phone: Neutrophils/100 WBC (Bld) 68.3 % 47-70 [facility] Work Phone: Potassium [Moles/Vol] 3.3 mmol/L 3.5-5.1 [facility] Work Phone: Protein [Mass/Vol] 6.9 g/dL 6.4-8.2 [facility] Work Phone: Sodium [Moles/Vol] 138 mmol/L 136-145 [facility] Work Phone: WBC (Bld) [#/Vol] 10.6 10*3/uL 4.4-11.0 [facility] Work Phone: [phone] Blood erythrocytes count (nu mber/volume)on 12-09-2021 RBC (Bld) [#/Vol] 3.98 10*6/uL 4.6-6.2 [facility] Work Phone: Blood hemoglobin measurement (mass/volume)on 12-09-2021 Hemoglobin (Bld) [Mass/Vol] 12.7 g/dL 13.0-16.5 [facility] Work Phone: Blood lymphocytes/100 leukoc yteson 12-09-2021 Lymphocytes/100 WBC (Bld) 23.3 % 19-41 [facility] Work Phone: [phone] Blood monocytes/100 leukocyt eson 12-09-2021 Monocytes/100 WBC (Bld) 6.8 % 0-10 [facility] Work Phone: Blood platelet mean volumeon 12-09-2021 Platelet mean volume (Bld) [Entitic vol] 9.4 fL 6.2-12.0 [facility] Work Phone: Determination of erythrocyte mean corpuscular volume (MCV)on 12-09-2021 MCV (RBC) [Entitic vol] 91.0 fL 80-94 [facility] Work Phone: [phone] Glucose Glucometer (BldC) [M ass/Vol]on 12-09-2021 Glucose [Mass/Vol] 186 mg/dL 74-106 [facility] Work Phone: Comment on above: MANAGEMENT OF PATIEN T CARE PER NURSING PROTOCOL Hematocrit Auto (Bld) [Volum e fraction]on 12-09-2021 Hematocrit (Bld) [Volume fraction] 36.2 % 40-54 [facility] Work Phone: Laboratory - Chemistry and C hemistry - challengeon 12-09-2021 ALP [Catalytic activity/Vol] 70 U/L 45-117 [facility] Work Phone: ALT [Catalytic activity/Vol] 23 U/L 16-61 [facility] Work Phone: CO2 [Moles/Vol] 26.0 mmol/L 21.0-32.0 [facility] Work Phone: Globulin (S) [Mass/Vol] 3.3 g/dL 2.2-4.2 [facility] Work Phone: Lipase [Catalytic activity/Vol] 331 U/L 73-393 [facility] Work Phone: Urea nitrogen/Creatinine [Mass ratio] 11.5 mg/mg 10-20 [facility] Work Phone: Laboratory - Hematology and Cell countson 12-09-2021 Erythrocyte distribution width (RBC) [Entitic vol] 43.5 fL 35.1-43.9 [facility] Work Phone: Erythrocyte distribution width (RBC) [Ratio] 13.1 % 11.6-14.6 [facility] Work Phone: Immature granulocytes/100 WBC (Bld) 0.400 % 0.0-0.9 [facility] Work Phone: Comment on above: IG% - Immature Granu locytes (promyelocytes, myelocytes and metamyelocytes) > 1% indicates that a LEFT SHIFT is Present. MCH (RBC) [Entitic mass] 31.9 pg 27.0-32.0 [facility] Work Phone: Nucleated RBC/100 WBC (Bld) [Ratio] 0 % 0-5 [facility] Work Phone: MCHC Auto (RBC) [Mass/Vol]on 12-09-2021 MCHC (RBC) [Mass/Vol] 35.1 g/dL 32-36 [facility] Work Phone: No Panel Informationon 12-09 Ethyl Alcohol Level 7.0 mg/dL [facility] Work Phone: Comment on above: The serum:whole bloo d ethanol ratio is approximately 1.14and varies slightly with hematocrit. Medical Alcohol reference interval and critical value innon-tolerant individuals; 50 - 100 Impairment 100 Intoxication 100 - 250 Severe Poisoning 250 - 400 Deep/possible fatal coma Estimated Creatinine Clearance Calc 97.89 ml/min [facility] Work Phone: Estimated GFR (MDRD) Amer 116 mL/min >60 [facility] Work Phone: Comment on above: GFR Calc Estimated GFR (MDRD) Non-Af Amer 96 mL/min >60 [facility] Work Phone: Comment on above: Non- GFR Calc Platelets bldon 12-09-2021 Platelets (Bld) [#/Vol] 169 10*3/uL 150-450 [facility] Work Phone: Serum or plasma albumin mc urement (mass/volume)on 12-09-2021 Albumin [Mass/Vol] 3.6 g/dL 3.2-5.0 [facility] Work Phone: Serum or plasma albumin/glob ulin mass ratioon 12-09-2021 Albumin/Globulin [Mass ratio] 1.1 {ratio} 0.9-2.4 [facility] Work Phone: Serum or plasma calcium mc urement (mass/volume)on 12-09-2021 Calcium [Mass/Vol] 8.6 mg/dL 8.5-10.1 [facility] Work Phone: Serum or plasma creatinine m easurement (mass/volume)on 12-09-2021 Creatinine [Mass/Vol] 0.87 mg/dL 0.70-1.30 [facility] Work Phone: Comment on above: The validity of the calculated GFR & GFRAA in patients over 70 years has not been determined. Clinical correlation is essential. Serum or plasma urea nitroge n measurement (mass/volume)on 12-09-2021 Urea nitrogen [Mass/Vol] 10 mg/dL 7-18 [facility] Work Phone: Thin prep Papanicolaou smear with manual screeningon 12-09-2021 Thin prep Papanicolaou smear with manual screening 20 U/L 15-37 [facility] Work Phone: Thin prep Papanicolaou smear with manual screening 4 5-15 [facility] Work Phone: No Panel Informationon 12-08 Troponin I High Sensitivity 13 pg/mL 3.0-78.0 [facility] Work Phone: Comment on above: Please Note: New [place] t Units and Gender Specific Reference Ranges. For more information see Policy Stat Procedure [place] High Sensitivity Troponin (TNIH) and attachments. Blood manual differential co mment interpretation (narrative result)on 12-07-2021 Manual differential comment Jose (Bld) [Interp] SCANNED [facility] Work Phone: Laboratory - Drug toxicology on 12-07-2021 Amphetamines Ql (U) Negative <1000 ng/mL [facility] Work Phone: Benzodiazepines Ql (U) Negative < 200 ng/mL [facility] Work Phone: Cannabinoids Screen Ql (U) Negative < 50 ng/mL [facility] Work Phone: Cocaine Ql (U) Negative < 300 ng/mL [facility] Work Phone: Opiates Ql (U) Negative < 300 ng/mL [facility] Work Phone: No Panel Informationon 12-07 MDMA (Ecstasy) Screen Negative < 500 ng/mL [facility] Work Phone: Urine Barbiturates Screen Negative < 200 ng/mL [facility] Work Phone: Urine Drug Screen Comment [facility] Work Phone: Comment on above: CONFIRMATORY TESTING FOR ALL POSITIVE URINE DRUG SCREENRESULTS WILL ONLY BE SENT OUT UPON PHYSICIAN ORDER. VISTA Urine Drug Screen methods provide only preliminaryanalytical test results. A more specific alternate chemicalmethod must be used in order to obtain a confirmedanalytical result. Gas chromatography/mass spectrometery(GC/MS) is the preferred confirmatory method. Clinicalconsideration and professional judgement should be appliedto any drug of abuse test result, particularly whenpreliminary positive results are used. URINE TCA TESTING MUST BE ORDERED SEPARATELY. USE TESTMNEMONIC: [facility] Urine Methadone Screen Negative < 300 ng/mL [facility] Work Phone: Urine phencyclidine (PCP) de tectionon 12-07-2021 Phencyclidine Ql (U) Negative < 25 ng/mL [facility] Work Phone: CNPNon 10-25-2021 CNPN Telephone (UROLAG) ----- BRONSON WELLER ([id number]) 1965 M Date Time Provider Department 10/25/21 TRINI WILLIAMSON During your visit today, we recorded the following information about you: Kendy Rivera 10/25/2021 2:19 PM Signed Patient calling office c/o frequency at night time. He was wondering if he should be on medication for prostate? Would you like him to have an appointment? UZMA Nieto, 10/29/2021 1:38 PM Signed He can try Flomax. Arlene Juarez Cma 10/29/2021 1:49 PM Signed Called patient to advise of script for flomax at pharmacy Arlene Juarez Cma Allergies As of Date: 10/25/2021 Noted Allergy Reaction CYCLOBENZAPRINE 03/26/2021 9 - Itching LISINOPRIL 05/07/2013 7 - Swelling Comments: mouth and throat NARCOTICS (OPIOIDS - MORPHINE KELLY*11/27/2020 9 - Itching TRAMADOL 01/01/2016 9 - Itching VICODIN (HYDROCODONE-ACETAMINOPHE *05/07/2013 7 - Swelling Comments: mouth and throat Date Reviewed: 10/05/2021 Reviewed by: Brennon Bojorquez MD - Fully Assessed Reason for Visit: Patient Update [1234] Order(s):tamsulosin (FLOMAX) 0.4 mgTake 1 capsule by mouth once daily. 30 minutes after the same meal each day.Disp: 30 capsuleRfl: 3 Prescriptions as of 10/29/2021 - tamsulosin (FLOMAX) 0.4 mg Take 1 capsule by mouth once daily. 30 minutes after the same meal each day. - losartan (COZAAR) 25 mg tablet Take 1 tablet by mouth once daily. - gabapentin (NEURONTIN) 300 mg capsule Take 1 capsule by mouth twice daily for 90 days. - lactulose (DUPHALAC, CONSTULOSE) 10 gram/15 mL solution - insulin glargine (LANTUS SOLOSTAR U-100 INSULIN) 100 unit/mL (3 mL) Inject 10 Units subcutaneously daily at bedtime. - naproxen (NAPROSYN) 500 mg tablet Take 1 tablet by mouth twice daily with meals. As needed for pain - amLODIPine (NORVASC) 5 mg tablet Take 1 tablet by mouth once daily. - cholecalciferol (VITAMIN D-3) 5,000 unit tab Take 1 tablet by mouth once daily. - pravastatin (PRAVACHOL) 20 mg tablet Take 1 tablet by mouth once daily. - pravastatin (PRAVACHOL) 40 mg tablet Take 1 tablet by mouth once daily. - pantoprazole DR (PROTONIX) 40 mg tablet Take 1 tablet by mouth once daily. - metFORMIN (GLUCOPHAGE) 500 mg tablet Take 1 tablet by mouth twice daily with meals. - magnesium oxide 400 mg magnesium cap Take 1 capsule by mouth twice daily. - loratadine 10 mg cap Take 1 capsule by mouth once daily. - hydroCHLOROthiazide (HYDRODIURIL, ESIDRIX) 25 mg tablet Take 1 tablet by mouth once daily. - aspirin, enteric coated (ECOTRIN LOW STRENGTH) 81 mg EC tablet Take 1 tablet by mouth once daily. - amitriptyline (ELAVIL) 25 mg tablet Take 1 tablet by mouth daily at bedtime. - levETIRAcetam (KEPPRA) 500 mg tablet Take 1 tablet by mouth twice daily. Per Dr. Burnett - docosahexaenoic acid/epa (FISH OIL ORAL) Take by mouth once daily. - fluticasone propionate (FLONASE NASAL) Use in the nose once daily. - traZODone (DESYREL) 50 mg tablet Take 1 tablet by mouth daily at bedtime. - Multivitamin capsule Take 1 capsule by mouth once daily. - SOFT LENS RINSE-STORE SOLUTION (SALINE MISC) - nitroglycerin sublingual (NITROSTAT) 0.4 mg SL tablet Dissolve 0.4 mg under the tongue every 5 minutes as needed. - lidocaine (LIDODERM) 5 %(700 mg/patch) Apply 1 Patch as directed every 24 hours. Problem List As Of Date 10/25/2021 Noted Resolved DDD (degenerative disc disease), thoracic [M51.*10/21/2014 Cervical radiculopathy [M54.12] 10/21/2014 Cervical strain [S16.1XXA] 10/21/2014 Cervical spondylosis [M47.812] 10/21/2014 DDD (degenerative disc disease), cervical [M50.*10/21/2014 Right hip pain [M25.551] 01/19/2015 Lumbago [M54.50] 01/19/2015 NO SHOW 06/05/2015 Type 2 diabetes mellitus without complication, *11/17/2020 Hypertension, essential [I10] 11/17/2020 Mixed hyperlipidemia [E78.2] GERD without esophagitis [K21.9] 12/01/2020 Vitamin D deficiency [E55.9] 12/01/2020 Seasonal allergic rhinitis due to pollen [J30.1]12/01/2020 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 30 minutes after the same meal each day. Encounter Status:Closed by TRINI WILLIAMSON on 10/29/21 [facility] CNOVon 07-06-2021 CNOV Office Visit (AKURFL ) ----- BRONSON WELLER ([id number]) 1965 M Date Time Provider Department 07/06/21 3:15 PM TRINI WILLIAMSON During your visit today, we recorded the following information about you: Weight Height 92.5 kg 1.778 m Trini Williamson DO 07/06/2021 4:05 PM Signed ?? [facility] [place] [facility] LOCATION: [address] [place] [address] ESTABLISHED PATIENT PATIENT INFO: Bronson Weller 56 [...] 61.2 Lymph% (%) Date Value 05/21/2021 28.6 [place]% (%) Date Value 05/21/2021 8.0 Eosin% (%) Date Value 05/21/2021 1.7 Baso% (%) Date Value 05/21/2021 0.5 Abs Neut (ANC) (k/uL) Date Value 05/21/2021 6.76 Abs [place] (k/uL) Date Value 05/21/2021 0.89 (H) Abs [...] tablet by mouth once daily. amitriptyline (ELAVIL) 2 (more content not included)... Normal [facility] MRI PROSTATE WO/W IVCONon MRI PROSTATE WO/W IVCON * * *Final Repor t* * * DATE OF EXAM: Jul 02 2021 10:04AM [facility] 0751 - MRI PROSTATE WO/W IVCON / PROCEDURE REASON: Malignant neoplasm of prostate (HCC) * * * * Physician Interpretation * * * * EXAMINATION: MRI PELVIS WITHOUT AND WITH IV CONTRAST (MULTIPARAMETRIC PROSTATE MRI) IV CONTRAST CLINICAL HISTORY: 56 years old Previous biopsy: 12/202021 Grade Group 1 (GS 3 + 3) right mid lateral, HGPIN left base PSA: 8.7 ng/mL ( 10/2020) ; Prior therapy: None. COMPARISON: None TECHNIQUE: Multiparametric MRI of the prostate and pelvis performed on a 3T scanner utilizing phase pelvic coil. Sequences obtained: multiplanar T2-WI with small FOV; Axial DWI with multiple B-values and creation of ADC-maps; DCE T1-weighted images through the prostate obtained before, during and after the administration of intravenous gadolinium; prostate dimensions and volume were obtained using a semi-automated software (Interior Define). CONTRAST: IV: 19ml cc of (Dotarem). RESULT: Prostate: Dimensions: 5.1 x 3.7 x 4.2 cm corresponding to a volume of approximately 42 a. PSA density 0.21 ng/mL/cc Post biopsy hemorrhage: Absent Peripheral zone: Diffuse mild T2/ADC map hypointensity (PI-RADS 2), predominantly in the posterior lateral and anterior right apex. Lesion #2: Location: right apex/mid posterolateral/anterior peripheral zone Greatest dimension: 1.1-cm (series:10; image:21) T2-WI: Heterogeneous signal intensity (score 3) DWI/ADC: Focal hypointense on ADC and/or focal hyperintense on high b-value DWI (score 3) DCE: Negative Extra-prostatic extension: Absent (no capsule contact) PI-RADS assessment category: 3 Transition zone: Heterogeneous benign prostate hypertrophy. Lesion #1: Location: left apex/mid anterior transition zone Greatest dimension: 0.7-cm (series:10; image:20) T2-WI: Heterogenous signal intensity with obscured margins (score 3) DWI/ADC: Focal hypointense on ADC and/or focal hyperintense on high b-value DWI (score 3) DCE: Negative Extra-prostatic extension: Probably absent (capsule/AFM contact < 1.5 cm; no irregularity or bulge) PI-RADS assessment category: 3 Neurovascular bundle: Unremarkable. Seminal vesicles: Unremarkable. Adjacent Organ Involvement: Not applicable. Lymph nodes: No enlarged pelvic lymph nodes. Bladder: Unremarkable. Pelvic bones: No suspicious pelvic osseous lesions. Other Findings: None. IMPRESSION: PIRADS 3 in the anterior transition zone at the mid gland, likely atypical BPH nodule. Mild diffuse signal abnormalities of the lateral peripheral zone predominantly in the right mid gland but no focal lesion. No suspicious lymph node or lymphadenopathy in the pelvis. Number of targets created for MR/US fusion biopsy: Peripheral zone: 1 Transition zone: 1 If present, targets were numbered in order of level of suspicion for clinically significant prostate cancer ([place] score 3 + 4 or higher). PI-RADS v2.1 Assessment Categories: PI-RADS 1: Clinically significant cancer is highly unlikely PI-RADS 2: Clinically significant cancer is unlikely PI-RADS 3: Clinically significant cancer is equivocal PI-RADS 4: Clinically significant cancer is likely PI-RADS 5: Clinically significant cancer is highly likely (V.) Top Bottom Attaching Machine Operator: JACQUE Transcribe Date/Time: Jul 06 2021 2:49P Dictated by : LITO BUTTERFIELD MD This examination was interpreted and the report reviewed and electronically signed by: LITO BUTTERFIELD MD on Jul 06 2021 3:15PM EST [id number] Normal [facility] CBC and Differentialon 11-26 Abs Baso 0.07 k/uL Normal <0.11 [facility] Comment on above: Performed By: #### C BCDIF, FT4, CMP, LIPB, TSH, HBA1C, VITD #### [facility] Routine Lab [address] [place], [place] [address] Abs [place] 0.70 k/uL Normal <0.87 [facility] Comment on above: Performed By: #### C BCDIF, FT4, CMP, LIPB, TSH, HBA1C, VITD #### [place] [facility] [address] [phone] Abs Neut 7.70 k/uL High 1.45-7.50 [facility] Comment on above: Performed By: #### C BCDIF, FT4, CMP, LIPB, TSH, HBA1C, VITD #### [place] [facility] [address] [place] [phone] Absolute nRBC <0.01 Normal <0.01 [facility] Comment on above: Performed By: #### C BCDIF, FT4, CMP, LIPB, TSH, HBA1C, VITD #### [place] [facility] [address] [place] [phone] Basophils/100 WBC (Bld) 0.6 % Normal [facility] Comment on above: Performed By: #### C BCDIF, FT4, CMP, LIPB, TSH, HBA1C, VITD #### [place] [facility] [address] [place] [phone] DTYPE ADIFF Normal [facility] Comment on above: Performed By: #### C BCDIF, FT4, CMP, LIPB, TSH, HBA1C, VITD #### [facility] [address] [place] [phone] Eosinophils (Bld) [#/Vol] 0.16 10*3/uL Normal <0.46 [facility] Comment on above: Performed By: #### C BCDIF, FT4, CMP, LIPB, TSH, HBA1C, VITD #### [facility] [address] [phone] Eosinophils/100 WBC (Bld) 1.3 % Normal [facility] Comment on above: Performed By: #### C BCDIF, FT4, CMP, LIPB, TSH, HBA1C, VITD #### [facility] [address] [place], [place] [address] Erythrocyte distribution width (RBC) [Ratio] 12.8 % Normal 11.5-15.0 [facility] Comment on above: Performed By: #### C BCDIF, FT4, CMP, LIPB, TSH, HBA1C, VITD #### [facility] Routine Lab [address] [address] Hematocrit (Bld) [Volume fraction] 45.1 % Normal 39.0-51.0 [facility] Comment on above: Performed By: #### C BCDIF, FT4, CMP, LIPB, TSH, HBA1C, VITD #### [facility] [address] [place] [id number] Hemoglobin (Bld) [Mass/Vol] 15.0 g/dL Normal 13.0-17.0 [facility] Comment on above: Performed By: #### C BCDIF, FT4, CMP, LIPB, TSH, HBA1C, VITD #### [place] [facility] [address] [place] [address] Lymphocytes (Bld) [#/Vol] 3.56 10*3/uL Normal 1.00-4.00 [facility] Comment on above: Performed By: #### C BCDIF, FT4, CMP, LIPB, TSH, HBA1C, VITD #### [facility] Routine Lab [address] [address] Lymphocytes/100 WBC (Bld) 29.2 % Normal [facility] Comment on above: Performed By: #### C BCDIF, FT4, CMP, LIPB, TSH, HBA1C, VITD #### [facility] Routine Lab [address] [place], [place] [address] MCH (RBC) [Entitic mass] 30.7 pG Normal 26.0-34.0 [facility] Comment on above: Performed By: #### C BCDIF, FT4, CMP, LIPB, TSH, HBA1C, VITD #### [place] [facility] [address] [address] MCHC (RBC) [Mass/Vol] 33.3 g/dL Normal 30.5-36.0 [facility] Comment on above: Performed By: #### C BCDIF, FT4, CMP, LIPB, TSH, HBA1C, VITD #### [place] [facility] [address] [address] MCV (RBC) [Entitic vol] 92.2 fL Normal 80.0-100.0 [facility] Comment on above: Performed By: #### C BCDIF, FT4, CMP, LIPB, TSH, HBA1C, VITD #### [place] [facility] [address] [place] [address] Monocytes/100 WBC (Bld) 5.7 % Normal [facility] Comment on above: Performed By: #### C BCDIF, FT4, CMP, LIPB, TSH, HBA1C, VITD #### [place] [facility] [address] [address] Neutrophils/100 WBC (Bld) 63.2 % Normal [facility] Comment on above: Performed By: #### C BCDIF, FT4, CMP, LIPB, TSH, HBA1C, VITD #### [place] [facility] [address] [id number] NRBCs 0.0 /100 WBC Normal 0 [facility] Comment on above: Performed By: #### C BCDIF, FT4, CMP, LIPB, TSH, HBA1C, VITD #### [place] [facility] [address] [place], [place] [address] Platelet mean volume (Bld) [Entitic vol] 12.0 fL Normal 9.0-12.7 [facility] Comment on above: Performed By: #### C BCDIF, FT4, CMP, LIPB, TSH, HBA1C, VITD #### [facility] [address] [place], [place] [address] Platelets (Bld) [#/Vol] 224 10*3/uL Normal 150-400 [facility] Comment on above: Performed By: #### C BCDIF, FT4, CMP, LIPB, TSH, HBA1C, VITD #### [place] [facility] [address] [address] RBC (Bld) [#/Vol] 4.89 10*6/uL Normal 4.20-6.00 [facility] Comment on above: Performed By: #### C BCDIF, FT4, CMP, LIPB, TSH, HBA1C, VITD #### [facility] [address] [place] [address] WBC (Bld) [#/Vol] 12.19 10*3/uL High 3.70-11.00 [facility] Comment on above: Performed By: #### C BCDIF, FT4, CMP, LIPB, TSH, HBA1C, VITD #### [facility] [address] [place], [place] [address] Comp Metabolic Panelon 11-26 Albumin [Mass/Vol] 4.9 g/dL Normal 3.9-4.9 [facility] Comment on above: Performed By: #### C BCDIF, FT4, CMP, LIPB, TSH, HBA1C, VITD #### [facility] [address] [place], [place] [address] ALP [Catalytic activity/Vol] 69 U/L Normal 38-113 [facility] Comment on above: Performed By: #### C BCDIF, FT4, CMP, LIPB, TSH, HBA1C, VITD #### [facility] [address] [place], [place] [address] ALT [Catalytic activity/Vol] 43 U/L Normal 10-54 [facility] Comment on above: Performed By: #### C BCDIF, FT4, CMP, LIPB, TSH, HBA1C, VITD #### [facility] [address] [place], [place] [address] Anion gap [Moles/Vol] 19 mmol/L High 9-18 [facility] Comment on above: Performed By: #### C BCDIF, FT4, CMP, LIPB, TSH, HBA1C, VITD #### [facility] [address] [place], [place] [address] AST [Catalytic activity/Vol] 35 U/L Normal 14-40 [facility] Comment on above: Performed By: #### C BCDIF, FT4, CMP, LIPB, TSH, HBA1C, VITD #### [facility] [address] [place], [place] [address] Bilirubin Ql (U) 0.9 mg/dL Normal 0.2-1.3 [facility] Comment on above: Performed By: #### C BCDIF, FT4, CMP, LIPB, TSH, HBA1C, VITD #### [facility] [address] [place], [place] [address] Calcium [Mass/Vol] 10.0 mg/dL Normal 8.5-10.2 [facility] Comment on above: Performed By: #### C BCDIF, FT4, CMP, LIPB, TSH, HBA1C, VITD #### [facility] [address] [place], [place] [address] Chloride [Moles/Vol] 92 mmol/L Low 97-105 [facility] Comment on above: Performed By: #### C BCDIF, FT4, CMP, LIPB, TSH, HBA1C, VITD #### [facility] [address] [place], [place] [address] CO2 [Moles/Vol] 21 mmol/L Low 22-30 [facility] Comment on above: Performed By: #### C BCDIF, FT4, CMP, LIPB, TSH, HBA1C, VITD #### [facility] [address] [place], [place] [address] Creatinine [Mass/Vol] 0.97 mg/dL Normal 0.73-1.22 [facility] Comment on above: Performed By: #### C BCDIF, FT4, CMP, LIPB, TSH, HBA1C, VITD #### [facility] [address] [place] [id number] eGFR- Amer. >60 Normal [facility] Comment on above: Performed By: #### C BCDIF, FT4, CMP, LIPB, TSH, HBA1C, VITD #### [facility] [address] [place] [address] GFR/1.73 sq M predicted among non-blacks MDRD (S/P/Bld) [Vol rate/Area] mL/min/{1.73_m2} Normal [facility] Comment on above: Performed By: #### C BCDIF, FT4, CMP, LIPB, TSH, HBA1C, VITD #### [facility] [address] [place], [place] [address] Glucose [Mass/Vol] 226 mg/dL High 74-99 [facility] Comment on above: Performed By: #### C BCDIF, FT4, CMP, LIPB, TSH, HBA1C, VITD #### [facility] [address] [place], [place] [address] Potassium [Moles/Vol] 3.7 mmol/L Normal 3.7-5.1 [facility] Comment on above: Performed By: #### C BCDIF, FT4, CMP, LIPB, TSH, HBA1C, VITD #### [facility] [address] [place], [place] [address] Protein [Mass/Vol] 7.7 g/dL Normal 6.3-8.0 [facility] Comment on above: Performed By: #### C BCDIF, FT4, CMP, LIPB, TSH, HBA1C, VITD #### [facility] [address] [place] [address] Sodium [Moles/Vol] 132 mmol/L Low 136-144 [facility] Comment on above: Performed By: #### C BCDIF, FT4, CMP, LIPB, TSH, HBA1C, VITD #### [facility] [address] [place] [address] Urea nitrogen [Mass/Vol] 11 mg/dL Normal 9-24 [facility] Comment on above: Performed By: #### C BCDIF, FT4, CMP, LIPB, TSH, HBA1C, VITD #### [facility] [address] [place] [address] Hemoglobin A1con 11-27-2019 HbA1c (Bld) [Mass fraction] 192 mg/dL Normal [facility] Comment on above: Performed By: #### C BCDIF, FT4, CMP, LIPB, TSH, HBA1C, VITD #### [facility] [address] [place] [address] HbA1c (Bld) [Mass fraction] 8.3 % High 4.3-5.6 [facility] Comment on above: Performed By: #### C BCDIF, FT4, CMP, LIPB, TSH, HBA1C, VITD #### [facility] [address] [place] [address] Lipid Panel, Basicon 020 Cholesterol [Mass/Vol] 145 mg/dL Normal <200 Cl [facility] Comment on above: Performed By: #### C BCDIF, FT4, CMP, LIPB, TSH, HBA1C, VITD #### [facility] [address] [place], [place] [address] Cholesterol in HDL [Mass/Vol] 36 mg/dL Low >39 [facility] Comment on above: Performed By: #### C BCDIF, FT4, CMP, LIPB, TSH, HBA1C, VITD #### [facility] [address] [place], [place] [address] Cholesterol in LDL [Mass/Vol] 77 mg/dL Normal <100 [facility] Comment on above: Performed By: #### C BCDIF, FT4, CMP, LIPB, TSH, HBA1C, VITD #### [facility] [address] [place], [place] [address] Cholesterol in VLDL [Mass/Vol] 32 mg/dL High <30 [facility] Comment on above: Performed By: #### C BCDIF, FT4, CMP, LIPB, TSH, HBA1C, VITD #### [facility] [address] [place], [place] [address] Cholesterol non HDL [Mass/Vol] 109 mg/dL Normal <130 [facility] Comment on above: Performed By: #### C BCDIF, FT4, CMP, LIPB, TSH, HBA1C, VITD #### [facility] [address] [place], [place] [address] LDL:HDL Ratio 2.14 Normal <2.54 [facility] Comment on above: Performed By: #### C BCDIF, FT4, CMP, LIPB, TSH, HBA1C, VITD #### [facility] [address] [place], [place] [address] TC:HDL Ratio 4.03 Normal <5.10 [facility] Comment on above: Performed By: #### C BCDIF, FT4, CMP, LIPB, TSH, HBA1C, VITD #### [facility] [address] [place], [place] [address] Triglyceride [Mass/Vol] 160 mg/dL High <150 [facility] Comment on above: Performed By: #### C BCDIF, FT4, CMP, LIPB, TSH, HBA1C, VITD #### [facility] [address] [place], [place] [address] Lipid Panel, Basicon 020 Fasting Time 12 hrs Normal [facility] Comment on above: Performed By: #### C BCDIF, FT4, CMP, LIPB, TSH, HBA1C, VITD #### [facility] [address] [place], [place] [address] Basic Metabolic Panlon 10-09 Anion gap [Moles/Vol] 18 mmol/L Normal 9-18 [facility] Comment on above: Performed By: #### C BCDIF, FT4, CMP, LIPB, TSH, HBA1C, VITD #### [facility] [address] [place] [address] Calcium [Mass/Vol] 10.4 mg/dL High 8.5-10.2 [facility] Comment on above: Performed By: #### C BCDIF, FT4, CMP, LIPB, TSH, HBA1C, VITD #### [facility] [address] [place], [place] [address] Chloride [Moles/Vol] 95 mmol/L Low 97-105 [facility] Comment on above: Performed By: #### C BCDIF, FT4, CMP, LIPB, TSH, HBA1C, VITD #### [facility] [address] [place], [place] [address] CO2 [Moles/Vol] 23 mmol/L Normal 22-30 [facility] Comment on above: Performed By: #### C BCDIF, FT4, CMP, LIPB, TSH, HBA1C, VITD #### [facility] [address] [place], [place] [address] Creatinine [Mass/Vol] 1.02 mg/dL Normal 0.73-1.22 [facility] Comment on above: Performed By: #### C BCDIF, FT4, CMP, LIPB, TSH, HBA1C, VITD #### [facility] [address] [place], [place] [address] eGFR- Amer. >60 Normal [facility] Comment on above: Performed By: #### C BCDIF, FT4, CMP, LIPB, TSH, HBA1C, VITD #### [facility] [address] [place], [place] [address] GFR/1.73 sq M predicted among non-blacks MDRD (S/P/Bld) [Vol rate/Area] mL/min/{1.73_m2} Normal [facility] Comment on above: Performed By: #### C BCDIF, FT4, CMP, LIPB, TSH, HBA1C, VITD #### [facility] [address] [place], [place] [address] Glucose [Mass/Vol] 148 mg/dL High 74-99 [facility] Comment on above: Performed By: #### C BCDIF, FT4, CMP, LIPB, TSH, HBA1C, VITD #### [facility] [address] [place], [place] [address] Potassium [Moles/Vol] 3.8 mmol/L Normal 3.7-5.1 [facility] Comment on above: Performed By: #### C BCDIF, FT4, CMP, LIPB, TSH, HBA1C, VITD #### [facility] [address] [place], [place] [address] Sodium [Moles/Vol] 136 mmol/L Normal 136-144 [facility] Comment on above: Performed By: #### C BCDIF, FT4, CMP, LIPB, TSH, HBA1C, VITD #### [facility] [address] [place], [place] [address] Urea nitrogen [Mass/Vol] 12 mg/dL Normal 9-24 [facility] Comment on above: Performed By: #### C BCDIF, FT4, CMP, LIPB, TSH, HBA1C, VITD #### [facility] [address] [place] [address] Lipaseon 10-09-2019 Lipase [Catalytic activity/Vol] 44 U/L Normal 16-61 [facility] Comment on above: Performed By: #### C BCDIF, FT4, CMP, LIPB, TSH, HBA1C, VITD #### [facility] [address] [place] [address] Amylaseon 09-21-2019 Amylase [Catalytic activity/Vol] 61 U/L Normal 30-104 [facility] Comment on above: Performed By: #### C BCDIF, FT4, CMP, LIPB, TSH, HBA1C, VITD #### [facility] [address] [place] [address] Basic Metabolic Panlon 09-21 Anion gap [Moles/Vol] 16 mmol/L Normal 9-18 [facility] Comment on above: Performed By: #### C BCDIF, FT4, CMP, LIPB, TSH, HBA1C, VITD #### [facility] [address] [place] [address] Calcium [Mass/Vol] 10.3 mg/dL High 8.5-10.2 [facility] Comment on above: Performed By: #### C BCDIF, FT4, CMP, LIPB, TSH, HBA1C, VITD #### [facility] [address] [place] [id number] Chloride [Moles/Vol] 100 mmol/L Normal 97-105 [facility] Comment on above: Performed By: #### C BCDIF, FT4, CMP, LIPB, TSH, HBA1C, VITD #### [facility] [address] [place], [place] [address] CO2 [Moles/Vol] 24 mmol/L Normal 22-30 [facility] Comment on above: Performed By: #### C BCDIF, FT4, CMP, LIPB, TSH, HBA1C, VITD #### [facility] [address] [place], [place] [address] Creatinine [Mass/Vol] 1.14 mg/dL Normal 0.73-1.22 [facility] Comment on above: Performed By: #### C BCDIF, FT4, CMP, LIPB, TSH, HBA1C, VITD #### [facility] [address] [place], [place] [address] eGFR- Amer. >60 Normal [facility] Comment on above: Performed By: #### C BCDIF, FT4, CMP, LIPB, TSH, HBA1C, VITD #### [facility] [address] [place] [id number] GFR/1.73 sq M predicted among non-blacks MDRD (S/P/Bld) [Vol rate/Area] mL/min/{1.73_m2} Normal [facility] Comment on above: Performed By: #### C BCDIF, FT4, CMP, LIPB, TSH, HBA1C, VITD #### [facility] [address] [place], [place] [address] Glucose [Mass/Vol] 196 mg/dL High 74-99 [facility] Comment on above: Performed By: #### C BCDIF, FT4, CMP, LIPB, TSH, HBA1C, VITD #### [facility] [address] [place], [place] [address] Potassium [Moles/Vol] 3.9 mmol/L Normal 3.7-5.1 [facility] Comment on above: Performed By: #### C BCDIF, FT4, CMP, LIPB, TSH, HBA1C, VITD #### [facility] [address] [place], [place] [address] Sodium [Moles/Vol] 140 mmol/L Normal 136-144 [facility] Comment on above: Performed By: #### C BCDIF, FT4, CMP, LIPB, TSH, HBA1C, VITD #### [facility] [address] [place] [address] Urea nitrogen [Mass/Vol] 22 mg/dL Normal 9-24 [facility] Comment on above: Performed By: #### C BCDIF, FT4, CMP, LIPB, TSH, HBA1C, VITD #### [facility] [address] [place] [address] Lipaseon 09-21-2019 Lipase [Catalytic activity/Vol] 89 U/L High 16-61 [facility] Comment on above: Performed By: #### C BCDIF, FT4, CMP, LIPB, TSH, HBA1C, VITD #### [facility] [address] [place], [place] [id number] Vitamin D 25 Hydroxyon 08-23 Vitamin D 25 Hydroxy 61.6 ng/mL Normal 31.0-80.0 [facility] Comment on above: Performed By: #### C BCDIF, FT4, CMP, LIPB, TSH, HBA1C, VITD #### [facility] [address] [place], [place] [phone] CBC and Differentialon 08-22 Abs Baso 0.05 k/uL Normal <0.11 [facility] Comment on above: Performed By: #### C BCDIF, FT4, CMP, LIPB, TSH, HBA1C, VITD #### [facility] [address] [place], [place] [address] Abs [place] 0.82 k/uL Normal <0.87 [facility] Comment on above: Performed By: #### C BCDIF, FT4, CMP, LIPB, TSH, HBA1C, VITD #### [facility] [address] [place] [phone] Abs Neut 5.32 k/uL Normal 1.45-7.50 [facility] Comment on above: Performed By: #### C BCDIF, FT4, CMP, LIPB, TSH, HBA1C, VITD #### [facility] [address] [place] [phone] Absolute nRBC <0.01 Normal <0.01 [facility] Comment on above: Performed By: #### C BCDIF, FT4, CMP, LIPB, TSH, HBA1C, VITD #### [facility] [address] [place] [phone] Basophils/100 WBC (Bld) 0.5 % Normal [facility] Comment on above: Performed By: #### C BCDIF, FT4, CMP, LIPB, TSH, HBA1C, VITD #### [facility] [address] [place] [phone] DTYPE ADIFF Normal [facility] Comment on above: Performed By: #### C BCDIF, FT4, CMP, LIPB, TSH, HBA1C, VITD #### [facility] [address] [place] [phone] Eosinophils (Bld) [#/Vol] 0.21 10*3/uL Normal <0.46 [facility] Comment on above: Performed By: #### C BCDIF, FT4, CMP, LIPB, TSH, HBA1C, VITD #### [facility] [address] [place] [phone] Eosinophils/100 WBC (Bld) 2.0 % Normal [facility] Comment on above: Performed By: #### C BCDIF, FT4, CMP, LIPB, TSH, HBA1C, VITD #### [facility] [address] [place] [address] Erythrocyte distribution width (RBC) [Ratio] 12.8 % Normal 11.5-15.0 [facility] Comment on above: Performed By: #### C BCDIF, FT4, CMP, LIPB, TSH, HBA1C, VITD #### [facility] [address] [place] [address] Hematocrit (Bld) [Volume fraction] 43.9 % Normal 39.0-51.0 [facility] Comment on above: Performed By: #### C BCDIF, FT4, CMP, LIPB, TSH, HBA1C, VITD #### [facility] [address] [place] [address] Hemoglobin (Bld) [Mass/Vol] 14.5 g/dL Normal 13.0-17.0 [facility] Comment on above: Performed By: #### C BCDIF, FT4, CMP, LIPB, TSH, HBA1C, VITD #### [facility] [address] [place] [address] Lymphocytes (Bld) [#/Vol] 4.07 10*3/uL High 1.00-4.00 [facility] Comment on above: Performed By: #### C BCDIF, FT4, CMP, LIPB, TSH, HBA1C, VITD #### [facility] [address] [place] [address] Lymphocytes/100 WBC (Bld) 38.9 % Normal [facility] Comment on above: Performed By: #### C BCDIF, FT4, CMP, LIPB, TSH, HBA1C, VITD #### [facility] [address] [place] [address] MCH (RBC) [Entitic mass] 30.8 pG Normal 26.0-34.0 [facility] Comment on above: Performed By: #### C BCDIF, FT4, CMP, LIPB, TSH, HBA1C, VITD #### [facility] [address] [place], [place] [address] MCHC (RBC) [Mass/Vol] 33.0 g/dL Normal 30.5-36.0 [facility] Comment on above: Performed By: #### C BCDIF, FT4, CMP, LIPB, TSH, HBA1C, VITD #### [facility] [address] [place] [address] MCV (RBC) [Entitic vol] 93.2 fL Normal 80.0-100.0 [facility] Comment on above: Performed By: #### C BCDIF, FT4, CMP, LIPB, TSH, HBA1C, VITD #### [facility] [address] [place], [place] [address] Monocytes/100 WBC (Bld) 7.8 % Normal [facility] Comment on above: Performed By: #### C BCDIF, FT4, CMP, LIPB, TSH, HBA1C, VITD #### [facility] [address] [place], [place] [address] Neutrophils/100 WBC (Bld) 50.8 % Normal [facility] Comment on above: Performed By: #### C BCDIF, FT4, CMP, LIPB, TSH, HBA1C, VITD #### [facility] [address] [place], [place] [address] NRBCs 0.0 /100 WBC Normal 0 [facility] Comment on above: Performed By: #### C BCDIF, FT4, CMP, LIPB, TSH, HBA1C, VITD #### [facility] [address] [place], [place] [address] Platelet mean volume (Bld) [Entitic vol] 11.4 fL Normal 9.0-12.7 [facility] Comment on above: Performed By: #### C BCDIF, FT4, CMP, LIPB, TSH, HBA1C, VITD #### [facility] [address] [place], [place] [address] Platelets (Bld) [#/Vol] 207 10*3/uL Normal 150-400 [facility] Comment on above: Performed By: #### C BCDIF, FT4, CMP, LIPB, TSH, HBA1C, VITD #### [facility] [address] [place], [place] [address] RBC (Bld) [#/Vol] 4.71 10*6/uL Normal 4.20-6.00 [facility] Comment on above: Performed By: #### C BCDIF, FT4, CMP, LIPB, TSH, HBA1C, VITD #### [facility] [address] [place], [place] [address] WBC (Bld) [#/Vol] 10.47 10*3/uL Normal 3.70-11.00 [facility] Comment on above: Performed By: #### C BCDIF, FT4, CMP, LIPB, TSH, HBA1C, VITD #### [facility] [address] [place], [place] [address] Comp Metabolic Panelon 08-22 Albumin [Mass/Vol] 4.8 g/dL Normal 3.9-4.9 [facility] Comment on above: Performed By: #### C BCDIF, FT4, CMP, LIPB, TSH, HBA1C, VITD #### [facility] [address] [place], [place] [phone] ALP [Catalytic activity/Vol] 54 U/L Normal 38-113 [facility] Comment on above: Performed By: #### C BCDIF, FT4, CMP, LIPB, TSH, HBA1C, VITD #### [facility] [address] [place], [place] [address] ALT [Catalytic activity/Vol] 40 U/L Normal 10-54 [facility] Comment on above: Performed By: #### C BCDIF, FT4, CMP, LIPB, TSH, HBA1C, VITD #### [facility] [address] [place], [place] [address] Anion gap [Moles/Vol] 14 mmol/L Normal 9-18 [facility] Comment on above: Performed By: #### C BCDIF, FT4, CMP, LIPB, TSH, HBA1C, VITD #### [facility] [address] [place], [place] [address] AST [Catalytic activity/Vol] 30 U/L Normal 14-40 [facility] Comment on above: Performed By: #### C BCDIF, FT4, CMP, LIPB, TSH, HBA1C, VITD #### [facility] [address] [place], [place] [address] Bilirubin Ql (U) 0.8 mg/dL Normal 0.2-1.3 [facility] Comment on above: Performed By: #### C BCDIF, FT4, CMP, LIPB, TSH, HBA1C, VITD #### [facility] [address] [place], [place] [address] Calcium [Mass/Vol] 10.0 mg/dL Normal 8.5-10.2 [facility] Comment on above: Performed By: #### C BCDIF, FT4, CMP, LIPB, TSH, HBA1C, VITD #### [facility] [address] [place], [place] [address] Chloride [Moles/Vol] 98 mmol/L Normal 97-105 [facility] Comment on above: Performed By: #### C BCDIF, FT4, CMP, LIPB, TSH, HBA1C, VITD #### [facility] [address] [place], [place] [address] CO2 [Moles/Vol] 25 mmol/L Normal 22-30 [facility] Comment on above: Performed By: #### C BCDIF, FT4, CMP, LIPB, TSH, HBA1C, VITD #### [facility] [address] [place], [place] [address] Creatinine [Mass/Vol] 0.97 mg/dL Normal 0.73-1.22 [facility] Comment on above: Performed By: #### C BCDIF, FT4, CMP, LIPB, TSH, HBA1C, VITD #### [facility] [address] [place], [place] [address] eGFR- Amer. >60 Normal [facility] Comment on above: Performed By: #### C BCDIF, FT4, CMP, LIPB, TSH, HBA1C, VITD #### [facility] [address] [place], [place] [address] GFR/1.73 sq M predicted among non-blacks MDRD (S/P/Bld) [Vol rate/Area] mL/min/{1.73_m2} Normal [facility] Comment on above: Performed By: #### C BCDIF, FT4, CMP, LIPB, TSH, HBA1C, VITD #### [facility] [address] [place], [place] [address] Glucose [Mass/Vol] 84 mg/dL Normal 74-99 [facility] Comment on above: Performed By: #### C BCDIF, FT4, CMP, LIPB, TSH, HBA1C, VITD #### [facility] [address] [place], [place] [address] Potassium [Moles/Vol] 3.6 mmol/L Low 3.7-5.1 [facility] Comment on above: Performed By: #### C BCDIF, FT4, CMP, LIPB, TSH, HBA1C, VITD #### [facility] [address] [place], [place] [address] Protein [Mass/Vol] 7.9 g/dL Normal 6.3-8.0 [facility] Comment on above: Performed By: #### C BCDIF, FT4, CMP, LIPB, TSH, HBA1C, VITD #### [facility] [address] [place], [place] [address] Sodium [Moles/Vol] 137 mmol/L Normal 136-144 [facility] Comment on above: Performed By: #### C BCDIF, FT4, CMP, LIPB, TSH, HBA1C, VITD #### [facility] [address] [place] [address] Urea nitrogen [Mass/Vol] 15 mg/dL Normal 9-24 [facility] Comment on above: Performed By: #### C BCDIF, FT4, CMP, LIPB, TSH, HBA1C, VITD #### [facility] [address] [place] [address] Hemoglobin A1con 08-22-2019 HbA1c (Bld) [Mass fraction] 6.8 % High 4.3-5.6 [facility] Comment on above: Performed By: #### C BCDIF, FT4, CMP, LIPB, TSH, HBA1C, VITD #### [facility] [address] [place] [address] HbA1c (Bld) [Mass fraction] 148 mg/dL Normal [facility] Comment on above: Performed By: #### C BCDIF, FT4, CMP, LIPB, TSH, HBA1C, VITD #### [facility] [address] [place] [address] Lipid Panel, Basicon 019 Cholesterol [Mass/Vol] 176 mg/dL Normal <200 [facility] Comment on above: Performed By: #### C BCDIF, FT4, CMP, LIPB, TSH, HBA1C, VITD #### [facility] [address] [place] [phone] Cholesterol in HDL [Mass/Vol] 39 mg/dL Low >39 [facility] Comment on above: Performed By: #### C BCDIF, FT4, CMP, LIPB, TSH, HBA1C, VITD #### [facility] [address] [place], [place] [address] Cholesterol in LDL [Mass/Vol] 118 mg/dL High <100 [facility] Comment on above: Performed By: #### C BCDIF, FT4, CMP, LIPB, TSH, HBA1C, VITD #### [facility] [address] [place] [address] Cholesterol in VLDL [Mass/Vol] 19 mg/dL Normal <30 [facility] Comment on above: Performed By: #### C BCDIF, FT4, CMP, LIPB, TSH, HBA1C, VITD #### [facility] [address] [place] [address] Cholesterol non HDL [Mass/Vol] 137 mg/dL High <130 [facility] Comment on above: Performed By: #### C BCDIF, FT4, CMP, LIPB, TSH, HBA1C, VITD #### [facility] [address] [place] [address] LDL:HDL Ratio 3.03 High <2.54 [facility] Comment on above: Performed By: #### C BCDIF, FT4, CMP, LIPB, TSH, HBA1C, VITD #### [facility] [address] [id number] TC:HDL Ratio 4.51 Normal <5.10 [facility] Comment on above: Performed By: #### C BCDIF, FT4, CMP, LIPB, TSH, HBA1C, VITD #### [facility] [address] [place], [place] [address] Triglyceride [Mass/Vol] 96 mg/dL Normal <150 [facility] Comment on above: Performed By: #### C BCDIF, FT4, CMP, LIPB, TSH, HBA1C, VITD #### [facility] [address] [phone] Fasting Time 12 hrs Normal [facility] Comment on above: Performed By: #### C BCDIF, FT4, CMP, LIPB, TSH, HBA1C, VITD #### [facility] [address] [place] [phone] CBC and Differentialon 05-16 Abs Baso 0.03 k/uL Normal <0.11 [facility] Comment on above: Performed By: #### C BCDIF, HBA1C, VITD, CMP, LIPB #### [facility] [address] [place] [phone] Abs [place] 0.58 k/uL Normal <0.87 [facility] Comment on above: Performed By: #### C BCDIF, HBA1C, VITD, CMP, LIPB #### [facility] [address] [place] [phone] Abs Neut 5.33 k/uL Normal 1.45-7.50 [facility] Comment on above: Performed By: #### C BCDIF, HBA1C, VITD, CMP, LIPB #### [facility] [address] [place] [phone] Absolute nRBC <0.01 Normal <0.01 [facility] Comment on above: Performed By: #### C BCDIF, HBA1C, VITD, CMP, LIPB #### [facility] [address] [place] [phone] Basophils/100 WBC (Bld) 0.4 % Normal [facility] Comment on above: Performed By: #### C BCDIF, HBA1C, VITD, CMP, LIPB #### [facility] [address] [place] [phone] DTYPE ADIFF Normal [facility] Comment on above: Performed By: #### C BCDIF, HBA1C, VITD, CMP, LIPB #### [facility] [address] [phone] Eosinophils (Bld) [#/Vol] 0.13 10*3/uL Normal <0.46 [facility] Comment on above: Performed By: #### C BCDIF, HBA1C, VITD, CMP, LIPB #### [facility] [address] [phone] Eosinophils/100 WBC (Bld) 1.5 % Normal [facility] Comment on above: Performed By: #### C BCDIF, HBA1C, VITD, CMP, LIPB #### [facility] [address] [place] [phone] Erythrocyte distribution width (RBC) [Ratio] 13.1 % Normal 11.5-15.0 [facility] Comment on above: Performed By: #### C BCDIF, HBA1C, VITD, CMP, LIPB #### [facility] [address] [phone] Hematocrit (Bld) [Volume fraction] 47.4 % Normal 39.0-51.0 [facility] Comment on above: Performed By: #### C BCDIF, HBA1C, VITD, CMP, LIPB #### [facility] [address] [phone] Hemoglobin (Bld) [Mass/Vol] 15.3 g/dL Normal 13.0-17.0 [facility] Comment on above: Performed By: #### C BCDIF, HBA1C, VITD, CMP, LIPB #### [facility] [address] [address] Lymphocytes (Bld) [#/Vol] 2.34 10*3/uL Normal 1.00-4.00 [facility] Comment on above: Performed By: #### C BCDIF, HBA1C, VITD, CMP, LIPB #### [facility] [address] [place], [place] [address] Lymphocytes/100 WBC (Bld) 27.8 % Normal [facility] Comment on above: Performed By: #### C BCDIF, HBA1C, VITD, CMP, LIPB #### [facility] [address] [place], [place] [address] MCH (RBC) [Entitic mass] 31.4 pG Normal 26.0-34.0 [facility] Comment on above: Performed By: #### C BCDIF, HBA1C, VITD, CMP, LIPB #### [facility] [address] [place] [address] MCHC (RBC) [Mass/Vol] 32.3 g/dL Normal 30.5-36.0 [facility] Comment on above: Performed By: #### C BCDIF, HBA1C, VITD, CMP, LIPB #### [facility] [address] [place] [address] MCV (RBC) [Entitic vol] 97.3 fL Normal 80.0-100.0 [facility] Comment on above: Performed By: #### C BCDIF, HBA1C, VITD, CMP, LIPB #### [facility] [address] [place] [address] Monocytes/100 WBC (Bld) 6.9 % Normal C [facility] Comment on above: Performed By: #### C BCDIF, HBA1C, VITD, CMP, LIPB #### [facility] [address] [place] [address] Neutrophils/100 WBC (Bld) 63.4 % Normal [facility] Comment on above: Performed By: #### C BCDIF, HBA1C, VITD, CMP, LIPB #### [facility] [address] [address] NRBCs 0.0 /100 WBC Normal 0 [facility] Comment on above: Performed By: #### C BCDIF, HBA1C, VITD, CMP, LIPB #### [facility] [address] [address] Platelet mean volume (Bld) [Entitic vol] 11.0 fL Normal 9.0-12.7 [facility] Comment on above: Performed By: #### C BCDIF, HBA1C, VITD, CMP, LIPB #### [facility] [address] [place] [address] Platelets (Bld) [#/Vol] 175 10*3/uL Normal 150-400 [facility] Comment on above: Performed By: #### C BCDIF, HBA1C, VITD, CMP, LIPB #### [facility] [address] [place] [address] RBC (Bld) [#/Vol] 4.87 10*6/uL Normal 4.20-6.00 [facility] Comment on above: Performed By: #### C BCDIF, HBA1C, VITD, CMP, LIPB #### [facility] [address] [place] [address] WBC (Bld) [#/Vol] 8.41 10*3/uL Normal 3.70-11.00 [facility] Comment on above: Performed By: #### C BCDIF, HBA1C, VITD, CMP, LIPB #### [facility] [address] [place] [address] Comp Metabolic Panelon 05-16 Albumin [Mass/Vol] 4.7 g/dL Normal 3.9-4.9 [facility] Comment on above: Performed By: #### C BCDIF, FT4, CMP, LIPB, TSH, HBA1C, VITD #### [facility] [address] [place], [place] [address] ALP [Catalytic activity/Vol] 58 U/L Normal 38-113 [facility] Comment on above: Performed By: #### C BCDIF, FT4, CMP, LIPB, TSH, HBA1C, VITD #### [facility] [address] [place], [place] [address] ALT [Catalytic activity/Vol] 59 U/L High 10-54 [facility] Comment on above: Performed By: #### C BCDIF, FT4, CMP, LIPB, TSH, HBA1C, VITD #### [facility] [address] [place], [place] [address] Anion gap [Moles/Vol] 15 mmol/L Normal 9-18 [facility] Comment on above: Performed By: #### C BCDIF, FT4, CMP, LIPB, TSH, HBA1C, VITD #### [facility] [address] [place], [place] [address] AST [Catalytic activity/Vol] 51 U/L High 14-40 [facility] Comment on above: Performed By: #### C BCDIF, FT4, CMP, LIPB, TSH, HBA1C, VITD #### [facility] [address] [place], [place] [address] Bilirubin Ql (U) 0.6 mg/dL Normal 0.2-1.3 [facility] Comment on above: Performed By: #### C BCDIF, FT4, CMP, LIPB, TSH, HBA1C, VITD #### [facility] [address] [place], [place] [address] Calcium [Mass/Vol] 10.2 mg/dL Normal 8.5-10.2 [facility] Comment on above: Performed By: #### C BCDIF, FT4, CMP, LIPB, TSH, HBA1C, VITD #### [facility] [address] [place], [place] [address] Chloride [Moles/Vol] 97 mmol/L Normal 97-105 [facility] Comment on above: Performed By: #### C BCDIF, FT4, CMP, LIPB, TSH, HBA1C, VITD #### [facility] [address] [place], [place] [address] CO2 [Moles/Vol] 24 mmol/L Normal 22-30 [facility] Comment on above: Performed By: #### C BCDIF, FT4, CMP, LIPB, TSH, HBA1C, VITD #### [facility] [address] [place], [place] [address] Creatinine [Mass/Vol] 1.15 mg/dL Normal 0.73-1.22 [facility] Comment on above: Performed By: #### C BCDIF, FT4, CMP, LIPB, TSH, HBA1C, VITD #### [facility] [address] [place], [place] [id number] eGFR- Amer. >60 Normal [facility] Comment on above: Performed By: #### C BCDIF, FT4, CMP, LIPB, TSH, HBA1C, VITD #### [facility] [address] [place], [place] [phone] GFR/1.73 sq M predicted among non-blacks MDRD (S/P/Bld) [Vol rate/Area] mL/min/{1.73_m2} Normal [facility] Comment on above: Performed By: #### C BCDIF, FT4, CMP, LIPB, TSH, HBA1C, VITD #### [facility] [address] [place], [place] [id number] Glucose [Mass/Vol] 172 mg/dL High 74-99 [facility] Comment on above: Performed By: #### C BCDIF, FT4, CMP, LIPB, TSH, HBA1C, VITD #### [facility] [address] [place], [place] [address] Potassium [Moles/Vol] 4.1 mmol/L Normal 3.7-5.1 [facility] Comment on above: Performed By: #### C BCDIF, FT4, CMP, LIPB, TSH, HBA1C, VITD #### [facility] [address] [address] Protein [Mass/Vol] 7.8 g/dL Normal 6.3-8.0 [facility] Comment on above: Performed By: #### C BCDIF, FT4, CMP, LIPB, TSH, HBA1C, VITD #### [facility] [address] [address] Sodium [Moles/Vol] 136 mmol/L Normal 136-144 [facility] Comment on above: Performed By: #### C BCDIF, FT4, CMP, LIPB, TSH, HBA1C, VITD #### [facility] [address] [address] Urea nitrogen [Mass/Vol] 15 mg/dL Normal 9-24 [facility] Comment on above: Performed By: #### C BCDIF, FT4, CMP, LIPB, TSH, HBA1C, VITD #### [facility] [address] [phone] Hemoglobin A1con 05-16-2019 HbA1c (Bld) [Mass fraction] 137 mg/dL Normal [facility] Comment on above: Performed By: #### C BCDIF, HBA1C, VITD, CMP, LIPB #### [facility] [address] [place], [place] [address] HbA1c (Bld) [Mass fraction] 6.4 % High 4.3-5.6 [facility] Comment on above: Performed By: #### C BCDIF, HBA1C, VITD, CMP, LIPB #### [facility] [address] [place], [place] [address] Lipid Panel, Basicon 019 Cholesterol [Mass/Vol] 162 mg/dL Normal <200 [facility] Comment on above: Performed By: #### C BCDIF, FT4, CMP, LIPB, TSH, HBA1C, VITD #### [facility] [address] [place], [place] [address] Cholesterol in HDL [Mass/Vol] 33 mg/dL Low >39 [facility] Comment on above: Performed By: #### C BCDIF, FT4, CMP, LIPB, TSH, HBA1C, VITD #### [facility] [address] [address] Cholesterol in LDL [Mass/Vol] 94 mg/dL Normal <100 [facility] Comment on above: Performed By: #### C BCDIF, FT4, CMP, LIPB, TSH, HBA1C, VITD #### [facility] [address] [place], [place] [address] Cholesterol in VLDL [Mass/Vol] 35 mg/dL High <30 [facility] Comment on above: Performed By: #### C BCDIF, FT4, CMP, LIPB, TSH, HBA1C, VITD #### [facility] [address] [place], [place] [address] Cholesterol non HDL [Mass/Vol] 129 mg/dL Normal <130 [facility] Comment on above: Performed By: #### C BCDIF, FT4, CMP, LIPB, TSH, HBA1C, VITD #### [facility] [address] [place], [place] [address] LDL:HDL Ratio 2.85 High <2.54 [facility] Comment on above: Performed By: #### C BCDIF, FT4, CMP, LIPB, TSH, HBA1C, VITD #### [facility] [address] [place], [place] [address] TC:HDL Ratio 4.91 Normal <5.10 [facility] Comment on above: Performed By: #### C BCDIF, FT4, CMP, LIPB, TSH, HBA1C, VITD #### [facility] [address] [address] Triglyceride [Mass/Vol] 176 mg/dL High <150 [facility] Comment on above: Performed By: #### C BCDIF, FT4, CMP, LIPB, TSH, HBA1C, VITD #### [facility] [address] [place], [place] [address] Fasting Time 12 hrs Normal [facility] Comment on above: Performed By: #### C BCDIF, FT4, CMP, LIPB, TSH, HBA1C, VITD #### [facility] [address] [address] Vitamin D 25 Hydroxyon 05-16 Vitamin D 25 Hydroxy 66.1 ng/mL Normal 31.0-80.0 [facility] Comment on above: Performed By: #### C BCDIF, FT4, CMP, LIPB, TSH, HBA1C, VITD #### [facility] [address] [address] Albumin/Creat Ratioon 2018 Albumin Urine Random 25.5 mg/L High 0.0-23.0 [facility] Comment on above: Performed By: #### U ACR #### [facility] [address] [place], [place] [address] Albumin/Creat Ratio 21 mg/g Normal 0-30 [facility] Comment on above: Performed By: #### U ACR #### [facility] [address] [place], [place] [address] Creatinine,Urine,Ran 122.7 mg/dL Normal 20-300 [facility] Comment on above: Performed By: #### U ACR #### [facility] [address] [address] CBC and Differentialon 02-13 Abs Baso 0.07 k/uL Normal <0.11 [facility] Comment on above: Performed By: #### C BCDIF, FT4, CMP, LIPB, TSH, HBA1C, VITD #### [facility] [address] [place] [phone] Abs [place] 0.64 k/uL Normal <0.87 [facility] Comment on above: Performed By: #### C BCDIF, FT4, CMP, LIPB, TSH, HBA1C, VITD #### [facility] [address] [place] [phone] Abs Neut 6.07 k/uL Normal 1.45-7.50 [facility] Comment on above: Performed By: #### C BCDIF, FT4, CMP, LIPB, TSH, HBA1C, VITD #### [facility] [address] [place] [phone] Absolute nRBC <0.01 Normal <0.01 [facility] Comment on above: Performed By: #### C BCDIF, FT4, CMP, LIPB, TSH, HBA1C, VITD #### [facility] [address] [place] [phone] Basophils/100 WBC (Bld) 0.7 % Normal C [facility] Comment on above: Performed By: #### C BCDIF, FT4, CMP, LIPB, TSH, HBA1C, VITD #### [facility] [address] [place] [phone] DTYPE ADIFF Normal [facility] Comment on above: Performed By: #### C BCDIF, FT4, CMP, LIPB, TSH, HBA1C, VITD #### [facility] [address] [place] [phone] Eosinophils (Bld) [#/Vol] 0.17 10*3/uL Normal <0.46 [facility] Comment on above: Performed By: #### C BCDIF, FT4, CMP, LIPB, TSH, HBA1C, VITD #### [facility] [address] [address] Eosinophils/100 WBC (Bld) 1.6 % Normal [facility] Comment on above: Performed By: #### C BCDIF, FT4, CMP, LIPB, TSH, HBA1C, VITD #### [facility] [address] [place] [phone] Erythrocyte distribution width (RBC) [Ratio] 13.5 % Normal 11.5-15.0 [facility] Comment on above: Performed By: #### C BCDIF, FT4, CMP, LIPB, TSH, HBA1C, VITD #### [facility] [address] [place] [address] Hematocrit (Bld) [Volume fraction] 44.1 % Normal 39.0-51.0 [facility] Comment on above: Performed By: #### C BCDIF, FT4, CMP, LIPB, TSH, HBA1C, VITD #### [facility] [address] [place] [address] Hemoglobin (Bld) [Mass/Vol] 14.5 g/dL Normal 13.0-17.0 [facility] Comment on above: Performed By: #### C BCDIF, FT4, CMP, LIPB, TSH, HBA1C, VITD #### [facility] [address] Lymphocytes (Bld) [#/Vol] 3.45 10*3/uL Normal 1.00-4.00 [facility] Comment on above: Performed By: #### C BCDIF, FT4, CMP, LIPB, TSH, HBA1C, VITD #### [facility] [address] [place], [place] [address] Lymphocytes/100 WBC (Bld) 33.2 % Normal [facility] Comment on above: Performed By: #### C BCDIF, FT4, CMP, LIPB, TSH, HBA1C, VITD #### [facility] [address] [place], [place] [address] MCH (RBC) [Entitic mass] 31.1 pG Normal 26.0-34.0 [facility] Comment on above: Performed By: #### C BCDIF, FT4, CMP, LIPB, TSH, HBA1C, VITD #### [facility] [address] [place], [place] [address] MCHC (RBC) [Mass/Vol] 32.9 g/dL Normal 30.5-36.0 [facility] Comment on above: Performed By: #### C BCDIF, FT4, CMP, LIPB, TSH, HBA1C, VITD #### [facility] [address] [place] [address] MCV (RBC) [Entitic vol] 94.6 fL Normal 80.0-100.0 [facility] Comment on above: Performed By: #### C BCDIF, FT4, CMP, LIPB, TSH, HBA1C, VITD #### [facility] [address] [place], [place] [address] Monocytes/100 WBC (Bld) 6.2 % Normal [facility] Comment on above: Performed By: #### C BCDIF, FT4, CMP, LIPB, TSH, HBA1C, VITD #### [facility] [address] [place], [place] [address] Neutrophils/100 WBC (Bld) 58.3 % Normal [facility] Comment on above: Performed By: #### C BCDIF, FT4, CMP, LIPB, TSH, HBA1C, VITD #### [facility] [address] [place], [place] [address] NRBCs 0.0 /100 WBC Normal 0 [facility] Comment on above: Performed By: #### C BCDIF, FT4, CMP, LIPB, TSH, HBA1C, VITD #### [facility] [address] [place], [place] [address] Platelet mean volume (Bld) [Entitic vol] 11.3 fL Normal 9.0-12.7 [facility] Comment on above: Performed By: #### C BCDIF, FT4, CMP, LIPB, TSH, HBA1C, VITD #### [facility] [address] [place], [place] [address] Platelets (Bld) [#/Vol] 191 10*3/uL Normal 150-400 [facility] Comment on above: Performed By: #### C BCDIF, FT4, CMP, LIPB, TSH, HBA1C, VITD #### [facility] [address] [place], [place] [address] RBC (Bld) [#/Vol] 4.66 10*6/uL Normal 4.20-6.00 [facility] Comment on above: Performed By: #### C BCDIF, FT4, CMP, LIPB, TSH, HBA1C, VITD #### [facility] [address] [place], [place] [address] WBC (Bld) [#/Vol] 10.40 10*3/uL Normal 3.70-11.00 [facility] Comment on above: Performed By: #### C BCDIF, FT4, CMP, LIPB, TSH, HBA1C, VITD #### [facility] [address] [place], [place] [address] Comp Metabolic Panelon 02-13 Albumin [Mass/Vol] 4.7 g/dL Normal 3.9-4.9 [facility] Comment on above: Performed By: #### C BCDIF, FT4, CMP, LIPB, TSH, HBA1C, VITD #### [facility] [address] [address] ALP [Catalytic activity/Vol] 62 U/L Normal 38-113 [facility] Comment on above: Performed By: #### C BCDIF, FT4, CMP, LIPB, TSH, HBA1C, VITD #### [facility] [address] [address] ALT [Catalytic activity/Vol] 36 U/L Normal 10-54 [facility] Comment on above: Performed By: #### C BCDIF, FT4, CMP, LIPB, TSH, HBA1C, VITD #### [facility] [address] [place] [address] Anion gap [Moles/Vol] 13 mmol/L Normal 9-18 [facility] Comment on above: Performed By: #### C BCDIF, FT4, CMP, LIPB, TSH, HBA1C, VITD #### [facility] [address] [place] [address] AST [Catalytic activity/Vol] 28 U/L Normal 14-40 [facility] Comment on above: Performed By: #### C BCDIF, FT4, CMP, LIPB, TSH, HBA1C, VITD #### [facility] [address] [address] Bilirubin Ql (U) 0.5 mg/dL Normal 0.2-1.3 [facility] Comment on above: Performed By: #### C BCDIF, FT4, CMP, LIPB, TSH, HBA1C, VITD #### [facility] [address] [address] Calcium [Mass/Vol] 9.8 mg/dL Normal 8.5-10.2 [facility] Comment on above: Performed By: #### C BCDIF, FT4, CMP, LIPB, TSH, HBA1C, VITD #### [facility] [address] [address] Chloride [Moles/Vol] 99 mmol/L Normal 97-105 [facility] Comment on above: Performed By: #### C BCDIF, FT4, CMP, LIPB, TSH, HBA1C, VITD #### [facility] [address] [address] CO2 [Moles/Vol] 26 mmol/L Normal 22-30 [facility] Comment on above: Performed By: #### C BCDIF, FT4, CMP, LIPB, TSH, HBA1C, VITD #### [facility] [address] [place] [address] Creatinine [Mass/Vol] 0.96 mg/dL Normal 0.73-1.22 [facility] Comment on above: Performed By: #### C BCDIF, FT4, CMP, LIPB, TSH, HBA1C, VITD #### [facility] [address] [place] [address] eGFR- Amer. >60 Normal [facility] Comment on above: Performed By: #### C BCDIF, FT4, CMP, LIPB, TSH, HBA1C, VITD #### [facility] [address] [address] GFR/1.73 sq M predicted among non-blacks MDRD (S/P/Bld) [Vol rate/Area] mL/min/{1.73_m2} Normal [facility] Comment on above: Performed By: #### C BCDIF, FT4, CMP, LIPB, TSH, HBA1C, VITD #### [facility] [address] [place], [place] [address] Glucose [Mass/Vol] 145 mg/dL High 74-99 [facility] Comment on above: Performed By: #### C BCDIF, FT4, CMP, LIPB, TSH, HBA1C, VITD #### [facility] [address] [place], [place] [address] Potassium [Moles/Vol] 4.1 mmol/L Normal 3.7-5.1 [facility] Comment on above: Performed By: #### C BCDIF, FT4, CMP, LIPB, TSH, HBA1C, VITD #### [facility] [address] [address] Protein [Mass/Vol] 7.6 g/dL Normal 6.3-8.0 [facility] Comment on above: Performed By: #### C BCDIF, FT4, CMP, LIPB, TSH, HBA1C, VITD #### [facility] [address] [place] [address] Sodium [Moles/Vol] 138 mmol/L Normal 136-144 [facility] Comment on above: Performed By: #### C BCDIF, FT4, CMP, LIPB, TSH, HBA1C, VITD #### [facility] [address] [place] [address] Urea nitrogen [Mass/Vol] 13 mg/dL Normal 9-24 [facility] Comment on above: Performed By: #### C BCDIF, FT4, CMP, LIPB, TSH, HBA1C, VITD #### [facility] [address] [place] [address] Free T4on 02-13-2019 Free T4 [Mass/Vol] 1.1 ng/dL Normal 0.9-1.7 [facility] Comment on above: Performed By: #### C BCDIF, FT4, CMP, LIPB, TSH, HBA1C, VITD #### [facility] [address] [place], [place] [address] Hemoglobin A1con 02-13-2019 HbA1c (Bld) [Mass fraction] 6.6 % High 4.3-5.6 [facility] Comment on above: Performed By: #### C BCDIF, FT4, CMP, LIPB, TSH, HBA1C, VITD #### [facility] [address] [place], [place] [address] HbA1c (Bld) [Mass fraction] 143 mg/dL Normal [facility] Comment on above: Performed By: #### C BCDIF, FT4, CMP, LIPB, TSH, HBA1C, VITD #### [facility] [address] [place], [place] [address] Lipid Panel, Basicon 019 Cholesterol [Mass/Vol] 144 mg/dL Normal <200 [facility] Comment on above: Performed By: #### C BCDIF, FT4, CMP, LIPB, TSH, HBA1C, VITD #### [facility] [address] [place], [place] [address] Cholesterol in HDL [Mass/Vol] 42 mg/dL Normal >39 [facility] Comment on above: Performed By: #### C BCDIF, FT4, CMP, LIPB, TSH, HBA1C, VITD #### [facility] [address] [place], [place] [address] Cholesterol in LDL [Mass/Vol] 79 mg/dL Normal <100 [facility] Comment on above: Performed By: #### C BCDIF, FT4, CMP, LIPB, TSH, HBA1C, VITD #### [facility] [address] [place], [place] [address] Cholesterol in VLDL [Mass/Vol] 23 mg/dL Normal <30 [facility] Comment on above: Performed By: #### C BCDIF, FT4, CMP, LIPB, TSH, HBA1C, VITD #### [facility] [address] [place], [place] [address] Cholesterol non HDL [Mass/Vol] 102 mg/dL Normal <130 [facility] Comment on above: Performed By: #### C BCDIF, FT4, CMP, LIPB, TSH, HBA1C, VITD #### [facility] [address] [phone] LDL:HDL Ratio 1.88 Normal <2.54 [facility] Comment on above: Performed By: #### C BCDIF, FT4, CMP, LIPB, TSH, HBA1C, VITD #### [facility] [address] [phone] TC:HDL Ratio 3.43 Normal <5.10 [facility] Comment on above: Performed By: #### C BCDIF, FT4, CMP, LIPB, TSH, HBA1C, VITD #### [facility] [address] [place] [phone] Triglyceride [Mass/Vol] 117 mg/dL Normal <150 [facility] Comment on above: Performed By: #### C BCDIF, FT4, CMP, LIPB, TSH, HBA1C, VITD #### [facility] [address] [place] [phone] Fasting Time UN Normal [facility] Comment on above: Performed By: #### C BCDIF, FT4, CMP, LIPB, TSH, HBA1C, VITD #### [facility] [address] [phone] TSHon 02-13-2019 TSH Qn 1.590 uU/mL Normal 0.400-5.50 0 [facility] Comment on above: Performed By: #### C BCDIF, FT4, CMP, LIPB, TSH, HBA1C, VITD #### [facility] Routine Lab [address] [phone] Vitamin D 25 Hydroxyon 02-13 Vitamin D 25 Hydroxy 56.7 ng/mL Normal 31.0-80.0 [facility] Comment on above: Performed By: #### C BCDIF, FT4, CMP, LIPB, TSH, HBA1C, VITD #### [facility] Routine Lab [address] [place], [place] [address] Office Visiton 06-08-2017 Fall risk assessment Yes Invalid Interpretation Code [facility] Work Phone: [phone] Office Visiton 07-05-2016 Protein mass conc Done Invalid Interpretation Code [facility] Work Phone: [phone] Tobacco smoking status NHIS Former smoker Invalid Interpretation Code [facility] Work Phone: [phone] Office Visiton 06-30-2015 cardiac risk group C Invalid Interpretation Code [facility] Work Phone: [phone] General cardiovascular disease 10Y risk [#] [place] N/A Invalid Interpretation Code [facility] Work Phone: [phone] Lab Reporton 03-06-2014 Anion gap 4 molar conc 15 Invalid Interpretation Code [facility] Work Phone: [phone] Calcium mass conc 10.1 mg/dL Invalid Interpretation Code [facility] Work Phone: [phone] Chloride molar conc 100 mmol/L Invalid Interpretation Code [facility] Work Phone: [phone] CO2 ppres (BldV) 22 mmol/L Invalid Interpretation Code [facility] Work Phone: [phone] Creatinine mass conc 0.99 mg/dL Invalid Interpretation Code [facility] Work Phone: [phone] Glucose mass conc 135 mg/dL Invalid Interpretation Code [facility] Work Phone: [phone] Potassium molar conc 4.2 mmol/L Invalid Interpretation Code [facility] Work Phone: [phone] Sodium molar conc 137 mmol/L Invalid Interpretation Code [facility] Work Phone: [phone] Urea nitrogen mass conc 18 mg/dL Invalid Interpretation Code [facility] Work Phone: [phone] Lab Report: BMPon 02-26-2014 GFR/1.73 sq M predicted among non-blacks MDRD vol rate/area (S/P/Bld) 85 mL/min/{1.73_m2} Normal >[address] [facility] [address] [facility] Work Phone: [phone] GFRAA 103 mL/min Normal >60 [facility] Work Phone: [phone] Urea nitrogen/Creatinine mass ratio 22.0 RATIO High 10-20 [facility] Work Phone: [phone] Lab Report: MGon 02-26-2014 Magnesium mass conc 1.5 mg/dL Low 1.8-2.4 [facility] Work Phone: [phone] Lab Report: T402-26-2014 T4 mass conc 6.7 ug/dL Normal 4.5-12.1 [facility] Work Phone: [phone] Lab Report: TSH02-26-2014 Thyrotropin Qn 1.31 u[iU]/mL Normal 0.358-3.74 [facility] Work Phone: [phone] 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 Hematocrit Auto Volume Fraction (Bld) 37.6 % Invalid Interpretation Code [facility] Work Phone: [phone] Hemoglobin mass conc (Bld) 12.6 g/dL Invalid Interpretation Code [facility] Work Phone: [phone] Platelets Auto #/vol (Bld) 200 10*3/mm3 Invalid Interpretation Code [facility] Work Phone: [phone] RBC Auto #/vol (Bld) 3.83 10*6/uL Invalid Interpretation Code [facility] Work Phone: [phone] WBC Auto #/vol (Bld) 10.8 10*3/uL Invalid Interpretation Code [facility] Work Phone: [phone] OCT OPTIC NERVE CIRRUS OU (B OTH EYES) [facility] Vital Signs Date Time Vital Sign Value Performing Clinician Faci lity 02-13-2025 13:39-0400 Body height 175.[address] Lobito Maldonado MD Work Phone: [facility] 02-13-2025 13:39-0400 Body mass index (BMI) [Ratio] 26.1 kg/m2 Dr. Lobito Maldonado MD Work Phone: [facility] 02-13-2025 13:39-0400 Body temperature 97.3 [degF] Dr. Lobito Maldonado MD Work Phone: [facility] 02-13-2025 13:39-0400 Body weight 80.[address] Lobito Maldonado MD Work Phone: [facility] 02-13-2025 13:39-0400 Diastolic blood pressure 71 mm[Hg] Dr. Lobito Maldonado MD Work Phone: [facility] 02-13-2025 13:39-0400 Heart rate 97 /min Dr. Lobito Maldonado MD Work Phone: [facility] 02-13-2025 13:39-0400 Respiratory rate 16 /min Dr. Lobito Maldonado MD Work Phone: 0(529)164-047895 [place] [address] 02-13-2025 13:39-0400 SaO2% (BldA) [Mass fraction] 96 % Dr. Lobito Maldonado MD Work Phone: [facility] 02-13-2025 13:39-0400 Systolic blood pressure 104 mm[Hg] Dr. Lobito Maldonado MD Work Phone: [facility] 10-24-2024 13:25-0500 Body mass index (BMI) [Ratio] 25.69 kg/m2 Lobito Maldonado MD Work Phone: [facility] 10-24-2024 13:25-0500 Body temperature 97.81 [degF] Lobito Maldonado MD Work Phone: [facility] 10-24-2024 13:25-0500 Body weight 81.2 kg Lobito Maldonado MD Work Phone: [facility] 10-24-2024 13:25-0500 Diastolic blood pressure 70 mm[Hg] Lobito Maldonado MD Work Phone: [facility] 10-24-2024 13:25-0500 Heart rate 108 /min Lobito Maldonado MD Work Phone: [facility] 10-24-2024 13:25-0500 Respiratory rate 20 /min Lobito Maldonado MD Work Phone: [facility] 10-24-2024 13:25-0500 Systolic blood pressure 104 mm[Hg] Lobito Maldonado MD Work Phone: [facility] 07-03-2024 13:42-0400 Body mass index (BMI) [Ratio] 25.69 kg/m2 Lobito Maldonado MD Work Phone: [facility] 07-03-2024 13:42-0400 Body temperature 98.8 [degF] Lobito Maldonado MD Work Phone: [facility] 07-03-2024 13:42-0400 Body weight 81.2 kg Lobito Maldonado MD Work Phone: [facility] 07-03-2024 13:42-0400 Diastolic blood pressure 66 mm[Hg] Lobito Maldonado MD Work Phone: [facility] 07-03-2024 13:42-0400 Heart rate 112 /min Lobito Maldonado MD Work Phone: [facility] 07-03-2024 13:42-0400 SaO2% (BldA) [Mass fraction] 100 % Lobito Maldonado MD Work Phone: [facility] 07-03-2024 13:42-0400 Systolic blood pressure 110 mm[Hg] Lobito Maldonado MD Work Phone: [facility] 02-05-2024 13:26-0400 Body mass index (BMI) [Ratio] 25.25 kg/m2 Alis Chua APRN.MATERIALS PLANNER/PRODUCTION PLANNER Work Phone: [facility] 02-05-2024 13:26-0400 Body weight 79.83 kg Alis Chua APRN.MATERIALS PLANNER/PRODUCTION PLANNER Work Phone: [facility] 02-05-2024 13:26-0400 Diastolic blood pressure 74 mm[Hg] Alis Chua APRN.MATERIALS PLANNER/PRODUCTION PLANNER Work Phone: [facility] 02-05-2024 13:26-0400 Heart rate 124 /min Alis Toma PLANT ELECTRICAL ENGINEER.MATERIALS PLANNER/PRODUCTION PLANNER Work Phone: [facility] 02-05-2024 13:26-0400 Respiratory rate 16 /min Alis Toma PLANT ELECTRICAL ENGINEER.MATERIALS PLANNER/PRODUCTION PLANNER Work Phone: [facility] 02-05-2024 13:26-0400 SaO2% (BldA) [Mass fraction] 95 % Alis Toma PLANT ELECTRICAL ENGINEER.MATERIALS PLANNER/PRODUCTION PLANNER Work Phone: [facility] 02-05-2024 13:26-0400 Systolic blood pressure 106 mm[Hg] Alis Toma PLANT ELECTRICAL ENGINEER.MATERIALS PLANNER/PRODUCTION PLANNER Work Phone: [facility] 01-08-2024 11:11-0400 Body height 177.[address] Lobito Maldonado Work Phone: [facility] 01-08-2024 11:11-0400 Body weight 84.[address] Lobito Maldonado Work Phone: [facility] 01-08-2024 08:10-0400 Body temperature 97.9 [degF] Dr. Lobito Maldonado Work Phone: [facility] 01-08-2024 08:10-0400 Diastolic blood pressure 85 mm[Hg] Dr. Lobito Maldonado Work Phone: [facility] 01-08-2024 08:10-0400 Heart rate 91 /min Dr. Lobito Maldonado Work Phone: [facility] 01-08-2024 08:10-0400 Respiratory rate 15 /min Dr. Lobito Maldonado Work Phone: [facility] 01-08-2024 08:10-0400 SaO2% (BldA) [Mass fraction] 96 % Dr. Lobito Maldonado Work Phone: [facility] 01-08-2024 08:10-0400 Systolic blood pressure 131 mm[Hg] Dr. Lobito Maldonado Work Phone: 5(524)364-131195 [place] [address] 01-07-2024 08:32-0400 Body mass index (BMI) [Ratio] 26.6 kg/m2 Dr. Lobito Maldonado Work Phone: 9(388)876-587063 [place] [address] 01-07-2024 08:01-0400 Body temperature 98.9 [degF] Dr. Lobito Maldonado Work Phone: 8(284)696-477563 [place] [address] 01-07-2024 08:01-0400 Diastolic blood pressure 81 mm[Hg] Dr. Lobito Maldonado Work Phone: 3(881)755-653463 [place] [address] 01-07-2024 08:01-0400 Heart rate 94 /min Dr. Lobito Maldonado Work Phone: 3(785)680-657863 [place] [address] 01-07-2024 08:01-0400 Respiratory rate 18 /min Dr. Lobito Maldonado Work Phone: 4(958)068-452263 [place] [address] 01-07-2024 08:01-0400 SaO2% (BldA) [Mass fraction] 97 % Dr. Lobito Maldonado Work Phone: 8(802)734-037163 [place] [address] 01-07-2024 08:01-0400 Systolic blood pressure 130 mm[Hg] Dr. Lobito Maldonado Work Phone: 7(253)126-720463 [place] [address] 01-07-2024 02:54-0400 Body height 175.[address] Lobito Maldonado Work Phone: 8(209)362-799895 [place] [address] 01-07-2024 02:54-0400 Body mass index (BMI) [Ratio] 28 kg/m2 Dr. Lobito Maldonado Work Phone: 5(377)576-506263 [place] [address] 01-07-2024 02:54-0400 Body weight 86.[address] Lobito Maldonado Work Phone: 9(556)501-163563 [place] [address] 11-20-2023 13:28-0500 Body temperature 97.4 [degF] Dr. Lobito Maldonado Work Phone: 0(442)129-790763 [place] [address] 11-20-2023 13:28-0500 Diastolic blood pressure 98 mm[Hg] Dr. Lobito Maldonado Work Phone: 6(638)676-409863 [place] [address] 11-20-2023 13:28-0500 Heart rate 90 /min Dr. Lobito Maldonado Work Phone: 1(375)993-600263 [place] [address] 11-20-2023 13:28-0500 Respiratory rate 18 /min Dr. Lobito Maldonado Work Phone: 6(061)387-459863 [place] [address] 11-20-2023 13:28-0500 SaO2% (BldA) [Mass fraction] 99 % Dr. Lobito Maldonado Work Phone: 8(524)725-478563 [place] [address] 11-20-2023 13:28-0500 Systolic blood pressure 149 mm[Hg] Dr. Lobito Maldonado Work Phone: 8(204)138-275863 [place] [address] 11-20-2023 11:14-0500 Body height 177.[address] Lobito Maldonado Work Phone: 7(492)696-489663 [place] [address] 11-20-2023 11:14-0500 Body mass index (BMI) [Ratio] 25.9 kg/m2 Dr. Lobito Maldonado Work Phone: 2(054)845-420263 [place] [address] 11-20-2023 11:14-0500 Body weight 82.[address] Lobito Maldonado Work Phone: 2(172)161-920263 [place] [address] 11-07-2023 10:21-0500 Diastolic blood pressure 88 mm[Hg] Dr. Lobito Maldonado Work Phone: 8(268)408-289363 [place] [address] 11-07-2023 10:21-0500 Heart rate 81 /min Dr. Lobito Maldonado Work Phone: 8(055)068-923563 [place] [address] 11-07-2023 10:21-0500 Respiratory rate 16 /min Dr. Lobito Maldonado Work Phone: 8(990)856-172863 [place] [address] 11-07-2023 10:21-0500 SaO2% (BldA) [Mass fraction] 95 % Dr. Lobito Maldonado Work Phone: 9(064)760-323463 [place] [address] 11-07-2023 10:21-0500 Systolic blood pressure 136 mm[Hg] Dr. Lobito Maldonado Work Phone: 3(978)159-199563 [place] [address] 11-07-2023 08:11-0500 Body height 177.[address] Lobito Maldonado Work Phone: 6(743)361-635963 [place] [address] 11-07-2023 08:11-0500 Body mass index (BMI) [Ratio] 27.3 kg/m2 Dr. Lobito Maldonado Work Phone: 0(765)955-516163 [place] [address] 11-07-2023 08:11-0500 Body temperature 98.4 [degF] Dr. Lobito Maldonado Work Phone: 4(844)034-221163 [place] [address] 11-07-2023 08:11-0500 Body weight 86.[address] Lobito Maldonado Work Phone: 7(745)264-965563 [place] [address] 10-23-2023 15:33-0500 Body mass index (BMI) [Ratio] 28.1 kg/m2 Dr. Lobito Maldonado Work Phone: 6(458)704-108563 [place] [address] 10-23-2023 15:33-0500 Body temperature 98.6 [degF] Dr. Lobito Maldonado Work Phone: 6(136)486-995463 [place] [address] 10-23-2023 15:33-0500 Body weight 86.[address] Lobito Maldonado Work Phone: 0(529)812-365863 [place] [address] 10-23-2023 15:33-0500 Diastolic blood pressure 80 mm[Hg] Dr. Lobito Maldonado Work Phone: 1(020)826-029863 [place] [address] 10-23-2023 15:33-0500 Heart rate 102 /min Dr. Lobito Maldonado Work Phone: 3(804)700-260963 [place] [address] 10-23-2023 15:33-0500 Respiratory rate 17 /min Dr. Lobito Maldonado Work Phone: 3(774)175-756463 [place] [address] 10-23-2023 15:33-0500 SaO2% (BldA) [Mass fraction] 96 % Dr. Lobito Maldonado Work Phone: 2(726)314-193363 [place] [address] 10-23-2023 15:33-0500 Systolic blood pressure 120 mm[Hg] Dr. Lobito Maldonado Work Phone: 0(598)984-592763 [place] [address] 10-10-2023 06:52-0500 Diastolic blood pressure 89 mm[Hg] Dr. Lobito Maldonado Work Phone: 5(532)693-909263 [place] [address] 10-10-2023 06:52-0500 Heart rate 89 /min Dr. Lobito Maldonado Work Phone: 8(872)993-650263 [place] [address] 10-10-2023 06:52-0500 Respiratory rate 16 /min Dr. Lobito Maldonado Work Phone: 2(204)407-558063 [place] [address] 10-10-2023 06:52-0500 SaO2% (BldA) [Mass fraction] 98 % Dr. Lobito Maldonado Work Phone: 6(832)558-544163 [place] [address] 10-10-2023 06:52-0500 Systolic blood pressure 140 mm[Hg] Dr. Lobito Maldonado Work Phone: 4(104)222-131563 [place] [address] 10-10-2023 04:32-0500 Body height 175.[address] Lobito Maldonado Work Phone: 9(434)610-688363 [place] [address] 10-10-2023 04:32-0500 Body mass index (BMI) [Ratio] 28.2 kg/m2 Dr. Lobito Maldonado Work Phone: 9(757)588-889063 [place] [address] 10-10-2023 04:32-0500 Body temperature 97.8 [degF] Dr. Lobito Maldonado Work Phone: 0(154)277-640363 [place] [address] 10-10-2023 04:32-0500 Body weight 86.[address] Lobito Maldonado Work Phone: 0(079)730-606863 [place] [address] 08-09-2023 05:35-0500 Diastolic blood pressure 69 mm[Hg] Dr. Lobito Maldonado Work Phone: 1(053)226-895863 [place] [address] 08-09-2023 05:35-0500 Heart rate 82 /min Dr. Lobito Maldonado Work Phone: 5(666)703-181563 [place] [address] 08-09-2023 05:35-0500 Respiratory rate 16 /min Dr. Lobito Maldonado Work Phone: 9(406)986-579295 [place] [address] 08-09-2023 05:35-0500 SaO2% (BldA) [Mass fraction] 98 % Dr. Lobito Maldonado Work Phone: 7(258)353-997995 [place] [address] 08-09-2023 05:35-0500 Systolic blood pressure 134 mm[Hg] Dr. Lobito Maldonado Work Phone: 5(373)753-651495 [place] [address] 08-09-2023 03:27-0500 Body height 177.[address] Lobito Maldonado Work Phone: 1(199)489-076395 [place] [address] 08-09-2023 03:27-0500 Body mass index (BMI) [Ratio] 27.3 kg/m2 Dr. Lobito Maldonado Work Phone: 5(928)289-521295 [place] [address] 08-09-2023 03:27-0500 Body temperature 97.3 [degF] Dr. Lobito Maldonado Work Phone: 6(916)001-152895 [place] [address] 08-09-2023 03:27-0500 Body weight 86.[address] Lobito Maldonado Work Phone: 4(922)913-602995 [place] [address] 06-09-2023 12:37-0400 Body weight 82.1 kg Alis Older PLANT ELECTRICAL ENGINEER.MATERIALS PLANNER/PRODUCTION PLANNER Work Phone: [facility] 06-09-2023 12:37-0400 Diastolic blood pressure 84 mm[Hg] Alis Older PLANT ELECTRICAL ENGINEER.MATERIALS PLANNER/PRODUCTION PLANNER Work Phone: [facility] 06-09-2023 12:37-0400 Heart rate 106 /min Alis Older PLANT ELECTRICAL ENGINEER.MATERIALS PLANNER/PRODUCTION PLANNER Work Phone: [facility] 06-09-2023 12:37-0400 Respiratory rate 18 /min Alis Older PLANT ELECTRICAL ENGINEER.MATERIALS PLANNER/PRODUCTION PLANNER Work Phone: [facility] 06-09-2023 12:37-0400 SaO2% (BldA) [Mass fraction] 96 % Alis Older PLANT ELECTRICAL ENGINEER.MATERIALS PLANNER/PRODUCTION PLANNER Work Phone: 0(003)424-052099 [place] [address] 06-09-2023 12:37-0400 Systolic blood pressure 122 mm[Hg] Alis Dunne PLANT ELECTRICAL ENGINEERMINNA Work Phone: [facility] 05-04-2023 01:55-0400 Heart rate 86 /min Dr. Lobito Maldonado Work Phone: 5(039)555-461895 [place] [address] 05-04-2023 01:55-0400 Respiratory rate 18 /min Dr. Lobito Maldonado Work Phone: 0(120)053-961395 [place] [address] 05-04-2023 01:55-0400 SaO2% (BldA) [Mass fraction] 94 % Dr. Lobito Maldonado Work Phone: 7(027)815-976163 [place] [address] 05-03-2023 20:57-0400 Body mass index (BMI) [Ratio] 26.5 kg/m2 Dr. Lobito Maldonado Work Phone: 6(405)870-913463 [place] [address] 05-03-2023 20:57-0400 Body temperature 97.3 [degF] Dr. Lobito Maldonado Work Phone: 5(442)708-211863 [place] [address] 05-03-2023 20:57-0400 Body weight 83.[address] Lobito Maldonado Work Phone: 8(855)836-758163 [place] [address] 05-03-2023 20:57-0400 Diastolic blood pressure 94 mm[Hg] Dr. Lobito Maldonado Work Phone: 4(381)865-399663 [place] [address] 05-03-2023 20:57-0400 Systolic blood pressure 148 mm[Hg] Dr. Lobito Maldonado Work Phone: 0(045)057-332763 [place] [address] 04-30-2023 06:22-0400 Diastolic blood pressure 71 mm[Hg] Dr. Lobito Maldonado Work Phone: 5(689)650-504963 [place] [address] 04-30-2023 06:22-0400 Heart rate 74 /min Dr. Lobito Maldonado Work Phone: 5(474)479-279463 [place] [address] 04-30-2023 06:22-0400 Respiratory rate 18 /min Dr. Lobito Maldonado Work Phone: [facility] 04-30-2023 06:22-0400 SaO2% (BldA) [Mass fraction] 99 % Dr. Lobito Maldonado Work Phone: 7(900)346-297863 [place] [address] 04-30-2023 06:22-0400 Systolic blood pressure 108 mm[Hg] Dr. Lobito Maldonado Work Phone: 8(694)809-710863 [place] [address] 04-30-2023 04:54-0400 Body height 177.[address] Lobito Maldonado Work Phone: 9(547)612-501763 [place] [address] 04-30-2023 04:54-0400 Body mass index (BMI) [Ratio] 27.1 kg/m2 Dr. Lobito Maldonado Work Phone: 6(053)867-279263 [place] [address] 04-30-2023 04:54-0400 Body temperature 98.5 [degF] Dr. Lobito Maldonado Work Phone: 6(862)009-558263 [place] [address] 04-30-2023 04:54-0400 Body weight 85.[address] Lobito Maldonado Work Phone: 1(063)208-471063 [place] [address] 03-10-2023 16:59-0400 Body height 177.[address] Lobito Maldonado Work Phone: 7(277)493-691863 [place] [address] 03-10-2023 16:59-0400 Body mass index (BMI) [Ratio] 26.9 kg/m2 Dr. Lobito Maldonado Work Phone: 7(260)789-624363 [place] [address] 03-10-2023 16:59-0400 Body temperature 98.9 [degF] Dr. Lobito Maldonado Work Phone: 5(154)343-861463 [place] [address] 03-10-2023 16:59-0400 Body weight 85.[address] Lobito Maldonado Work Phone: 3(139)144-527263 [place] [address] 03-10-2023 16:59-0400 Diastolic blood pressure 87 mm[Hg] Dr. Lobito Maldonado Work Phone: 0(845)642-063563 [place] [address] 03-10-2023 16:59-0400 Heart rate 102 /min Dr. Lobito Maldonado Work Phone: [facility] 03-10-2023 16:59-0400 Respiratory rate 18 /min Dr. Lobito Maldonado Work Phone: [facility] 03-10-2023 16:59-0400 SaO2% (BldA) [Mass fraction] 100 % Dr. Lobito Maldonado Work Phone: [facility] 03-10-2023 16:59-0400 Systolic blood pressure 117 mm[Hg] Dr. Lobito Maldonado Work Phone: [facility] 02-06-2023 13:21-0400 Diastolic blood pressure 83 mm[Hg] Lobito Maldonado MD Work Phone: [facility] 02-06-2023 13:21-0400 Heart rate 109 /min Lobito Maldonado MD Work Phone: [facility] 02-06-2023 13:21-0400 Systolic blood pressure 121 mm[Hg] Lobito Maldonado MD Work Phone: [facility] 02-06-2023 13:18-0400 Body weight 82.56 kg Lobito Maldonado MD Work Phone: [facility] 02-06-2023 13:18-0400 Respiratory rate 16 /min Lobito Maldonado MD Work Phone: [facility] 02-02-2023 12:59-0400 Body height 177.[address] Lobito Maldonado Work Phone: [facility] 02-02-2023 12:59-0400 Body mass index (BMI) [Ratio] 26.4 kg/m2 Dr. Lobito Maldonado Work Phone: [facility] 02-02-2023 12:59-0400 Body temperature 98.6 [degF] Dr. Lobito Maldonado Work Phone: [facility] 02-02-2023 12:59-0400 Body weight 83.[address] Lobito Maldonado Work Phone: 2(093)036-492263 [place] [address] 02-02-2023 12:59-0400 Diastolic blood pressure 70 mm[Hg] Dr. Lobito Maldonado Work Phone: 7(722)667-237963 [place] [address] 02-02-2023 12:59-0400 Heart rate 119 /min Dr. Lobito Maldonado Work Phone: 2(884)495-789963 [place] [address] 02-02-2023 12:59-0400 Respiratory rate 16 /min Dr. Lobito Maldonado Work Phone: 8(045)587-971163 [place] [address] 02-02-2023 12:59-0400 SaO2% (BldA) [Mass fraction] 96 % Dr. Lobito Maldonado Work Phone: 9(658)555-620163 [place] [address] 02-02-2023 12:59-0400 Systolic blood pressure 110 mm[Hg] Dr. Lobito Maldonado Work Phone: 7(251)028-921563 [place] [address] 01-22-2023 03:06-0400 Diastolic blood pressure 77 mm[Hg] Dr. Lobito Maldonado Work Phone: 9(967)840-281763 [place] [address] 01-22-2023 03:06-0400 Heart rate 62 /min Dr. Lobito Maldonado Work Phone: 2(924)060-882663 [place] [address] 01-22-2023 03:06-0400 Respiratory rate 15 /min Dr. Lobito Maldonado Work Phone: 6(384)364-918863 [place] [address] 01-22-2023 03:06-0400 SaO2% (BldA) [Mass fraction] 97 % Dr. Lobito Maldonado Work Phone: 0(913)291-216763 [place] [address] 01-22-2023 03:06-0400 Systolic blood pressure 124 mm[Hg] Dr. Lobito Maldonado Work Phone: 2(936)164-090263 [place] [address] 01-22-2023 00:26-0400 Body mass index (BMI) [Ratio] 26.9 kg/m2 Dr. Lobito Maldonado Work Phone: 9(172)588-051563 [place] [address] 01-22-2023 00:26-0400 Body temperature 97.8 [degF] Dr. Lobito Maldonado Work Phone: 5(090)719-065895 [place] [address] 01-22-2023 00:26-0400 Body weight 85.[address] Lobito Maldonado Work Phone: 5(466)715-153963 [place] [address] 01-21-2023 16:05-0400 Diastolic blood pressure 85 mm[Hg] Dr. Lobito Maldonado Work Phone: 9(567)993-733163 [place] [address] 01-21-2023 16:05-0400 Heart rate 84 /min Dr. Lobito Maldonado Work Phone: 7(126)828-022063 [place] [address] 01-21-2023 16:05-0400 Respiratory rate 20 /min Dr. Lobito Maldonado Work Phone: 7(233)044-255163 [place] [address] 01-21-2023 16:05-0400 SaO2% (BldA) [Mass fraction] 100 % Dr. Lobito Maldonado Work Phone: 5(374)082-883563 [place] [address] 01-21-2023 16:05-0400 Systolic blood pressure 125 mm[Hg] Dr. Lobito Maldonado Work Phone: 7(097)305-594163 [place] [address] 01-21-2023 14:16-0400 Body height 177.[address] Lobito Maldonado Work Phone: 4(103)321-668663 [place] [address] 01-21-2023 14:16-0400 Body mass index (BMI) [Ratio] 27.5 kg/m2 Dr. Lobito Maldonado Work Phone: 6(558)385-238863 [place] [address] 01-21-2023 14:16-0400 Body temperature 97.3 [degF] Dr. Lobito Maldonado Work Phone: 9(382)801-886863 [place] [address] 01-21-2023 14:16-0400 Body weight [address] Lobito Maldonado Work Phone: 5(139)346-613863 [place] [address] 12-26-2022 08:56-0400 Diastolic blood pressure 83 mm[Hg] Dr. Lobito Maldonado Work Phone: 1(486)355-944563 [place] [address] 12-26-2022 08:56-0400 Heart rate 80 /min Dr. Lobito Maldonado Work Phone: [facility] 12-26-2022 08:56-0400 Respiratory rate 16 /min Dr. Lobito Maldonado Work Phone: [facility] 12-26-2022 08:56-0400 SaO2% (BldA) [Mass fraction] 97 % Dr. Lobito Maldonado Work Phone: [facility] 12-26-2022 08:56-0400 Systolic blood pressure 120 mm[Hg] Dr. Lobito Maldonado Work Phone: [facility] 12-26-2022 05:46-0400 Body height 177.[address] Lobito Maldonado Work Phone: 4(162)458-632695 [place] [address] 12-26-2022 05:46-0400 Body mass index (BMI) [Ratio] 26.5 kg/m2 Dr. Lobito Maldonado Work Phone: 9(118)635-833195 [place] [address] 12-26-2022 05:46-0400 Body temperature 96.5 [degF] Dr. Lobito Maldonado Work Phone: 2(635)559-053495 [place] [address] 12-26-2022 05:46-0400 Body weight 83.[address] Lobito Maldonado Work Phone: [facility] 12-15-2022 11:49-0400 Body temperature 98.29 [degF] Emmanuel Fritz MD Work Phone: [facility] 12-15-2022 11:49-0400 Body weight 82.74 kg Emmanuel Fritz MD Work Phone: [facility] 12-15-2022 11:49-0400 Diastolic blood pressure 76 mm[Hg] Emmanuel Fritz MD Work Phone: [facility] 12-15-2022 11:49-0400 Heart rate 122 /min Emmanuel Fritz MD Work Phone: [facility] 12-15-2022 11:49-0400 Respiratory rate 18 /min Emmanuel Fritz MD Work Phone: [facility] 12-15-2022 11:49-0400 SaO2% (BldA) [Mass fraction] 98 % Emmanuel Fritz MD Work Phone: [facility] 12-15-2022 11:49-0400 Systolic blood pressure 120 mm[Hg] Emmanuel Fritz MD Work Phone: [facility] 12-15-2022 10:54-0400 Body mass index (BMI) [Ratio] 26.1 kg/m2 Dr. Lobito Maldonado Work Phone: [facility] 12-15-2022 10:54-0400 Body weight 82.[address] Lobito Maldonado Work Phone: 2(010)867-406695 [place] [address] 12-15-2022 10:54-0400 Diastolic blood pressure 72 mm[Hg] Dr. Lobito Maldonado Work Phone: 4(445)054-002195 [place] [address] 12-15-2022 10:54-0400 Heart rate 112 /min Dr. Lobito Maldonado Work Phone: 9(940)770-625395 [place] [address] 12-15-2022 10:54-0400 Respiratory rate 16 /min Dr. Lobito Maldonado Work Phone: 4(120)735-608995 [place] [address] 12-15-2022 10:54-0400 Systolic blood pressure 102 mm[Hg] Dr. Lobito Maldonado Work Phone: [facility] 12-14-2022 03:59-0400 Body temperature 98.7 [degF] Dr. Lobito Maldonado Work Phone: 9(761)707-805995 [place] [address] 12-14-2022 03:59-0400 Diastolic blood pressure 74 mm[Hg] Dr. Lobito Maldonado Work Phone: [facility] 12-14-2022 03:59-0400 Heart rate 90 /min Dr. Lobito Maldonado Work Phone: 1(718)538-387995 [place] [address] 12-14-2022 03:59-0400 Respiratory rate 17 /min Dr. Lobito Maldonado Work Phone: [facility] 12-14-2022 03:59-0400 SaO2% (BldA) [Mass fraction] 98 % Dr. Lobito Maldonado Work Phone: 7(044)540-257795 [place] [address] 12-14-2022 03:59-0400 Systolic blood pressure 138 mm[Hg] Dr. Lobito Maldonado Work Phone: 7(659)700-995095 [place] [address] 12-13-2022 23:07-0400 Body height 177.[address] Lobito Maldonado Work Phone: 7(140)927-431363 [place] [address] 12-13-2022 23:07-0400 Body mass index (BMI) [Ratio] 26.4 kg/m2 Dr. Lobito Maldonado Work Phone: 3(978)656-438763 [place] [address] 12-13-2022 23:07-0400 Body weight 83.[address] Lobito Maldonado Work Phone: 5(921)082-334363 [place] [address] 12-02-2022 15:04-0500 Body temperature 98.2 [degF] Dr. Lobito Maldonado Work Phone: 2(158)985-982663 [place] [address] 12-02-2022 15:04-0500 Diastolic blood pressure 88 mm[Hg] Dr. Lobito Maldonado Work Phone: 0(157)975-111795 [place] [address] 12-02-2022 15:04-0500 Heart rate 93 /min Dr. Lobito Maldonado Work Phone: 7(409)445-552695 [place] [address] 12-02-2022 15:04-0500 Respiratory rate 16 /min Dr. Lobito Maldonado Work Phone: 4(965)104-065395 [place] [address] 12-02-2022 15:04-0500 SaO2% (BldA) [Mass fraction] 98 % Dr. Lobito Maldonado Work Phone: 1(965)232-588295 [place] [address] 12-02-2022 15:04-0500 Systolic blood pressure 138 mm[Hg] Dr. Lobito Maldonado Work Phone: 8(243)049-159195 [place] [address] 12-02-2022 10:30-0500 Body height 177.[address] Lobito Maldonado Work Phone: 0(007)176-133795 [place] [address] 12-02-2022 10:30-0500 Body weight 86.[address] Lobito Maldonado Work Phone: 3(983)362-853563 [place] [address] 12-02-2022 06:00-0500 Body mass index (BMI) [Ratio] 27.3 kg/m2 Dr. Lobito Malodnado Work Phone: 5(716)438-533163 [place] [address] 11-29-2022 03:19-0500 Body temperature 97.4 [degF] Dr. Lobito Maldonado Work Phone: 6(725)127-087063 [place] [address] 11-29-2022 03:19-0500 Diastolic blood pressure 96 mm[Hg] Dr. Lobito Maldonado Work Phone: 7(490)317-199863 [place] [address] 11-29-2022 03:19-0500 Heart rate 100 /min Dr. Lobito Maldonado Work Phone: 9(607)391-350363 [place] [address] 11-29-2022 03:19-0500 Respiratory rate 17 /min Dr. Lobito Maldonado Work Phone: 1(475)646-342263 [place] [address] 11-29-2022 03:19-0500 SaO2% (BldA) [Mass fraction] 96 % Dr. Lobito Maldonado Work Phone: 0(694)488-849463 [place] [address] 11-29-2022 03:19-0500 Systolic blood pressure 148 mm[Hg] Dr. Lobito Maldonado Work Phone: 2(362)124-774563 [place] [address] 11-28-2022 21:43-0500 Body height 177.[address] Lobito Maldonado Work Phone: 5(719)640-400263 [place] [address] 11-28-2022 21:43-0500 Body mass index (BMI) [Ratio] 26.2 kg/m2 Dr. Lobito Maldonado Work Phone: 1(444)402-919463 [place] [address] 11-28-2022 21:43-0500 Body weight 82.[address] Lobiot Maldonado Work Phone: 8(310)334-048063 [place] [address] 11-09-2022 20:42-0500 Body height 177.[address] Lobito Maldonado Work Phone: 6(259)597-765463 [place] [address] 11-09-2022 20:42-0500 Body mass index (BMI) [Ratio] 27.2 kg/m2 Dr. Lobito Maldonado Work Phone: 4(311)662-339863 [place] [address] 11-09-2022 20:42-0500 Body temperature 97.8 [degF] Dr. Lobito Maldonado Work Phone: 7(325)017-799663 [place] [address] 11-09-2022 20:42-0500 Body weight 86.[address] Lobito Maldonado Work Phone: 2(589)708-164463 [place] [address] 11-09-2022 20:42-0500 Diastolic blood pressure 92 mm[Hg] Dr. Lobito Maldonado Work Phone: 9(990)852-869563 [place] [address] 11-09-2022 20:42-0500 Heart rate 104 /min Dr. Lobito Maldonado Work Phone: 1(965)121-376763 [place] [address] 11-09-2022 20:42-0500 Respiratory rate 16 /min Dr. Lobito Maldonado Work Phone: 4(111)250-062063 [place] [address] 11-09-2022 20:42-0500 SaO2% (BldA) [Mass fraction] 100 % Dr. Lobito Maldonado Work Phone: 3(134)684-043363 [place] [address] 11-09-2022 20:42-0500 Systolic blood pressure 144 mm[Hg] Dr. Lobito Maldonado Work Phone: 1(888)694-216863 [place] [address] 11-09-2022 16:15-0500 Body height 177.[address] Lobito Maldonado Work Phone: 1(241)604-463363 [place] [address] 11-09-2022 16:15-0500 Body mass index (BMI) [Ratio] 27.2 kg/m2 Dr. Lobito Maldonado Work Phone: 7(106)177-991163 [place] [address] 11-09-2022 16:15-0500 Body temperature 96 [degF] Dr. Lobito Maldonado Work Phone: 6(374)436-364163 [place] [address] 11-09-2022 16:15-0500 Body weight 86.[address] Lobito Maldonado Work Phone: [facility] 11-09-2022 16:15-0500 Diastolic blood pressure 85 mm[Hg] Dr. Lobito Maldonado Work Phone: 9(768)431-737495 [place] [address] 11-09-2022 16:15-0500 Heart rate 111 /min Dr. Lobito Maldonado Work Phone: 8(689)578-545195 [place] [address] 11-09-2022 16:15-0500 Respiratory rate 18 /min Dr. Lobito Maldonado Work Phone: 8(680)986-510595 [place] [address] 11-09-2022 16:15-0500 SaO2% (BldA) [Mass fraction] 98 % Dr. Lobito Maldonado Work Phone: 6(325)086-835995 [place] [address] 11-09-2022 16:15-0500 Systolic blood pressure 142 mm[Hg] Dr. Lobito Maldonado Work Phone: 4(662)385-827895 [place] [address] 11-07-2022 15:16-0500 Diastolic blood pressure 80 mm[Hg] Alis Older PLANT ELECTRICAL ENGINEER.MATERIALS PLANNER/PRODUCTION PLANNER Work Phone: [facility] 11-07-2022 15:16-0500 Systolic blood pressure 134 mm[Hg] Alis Older PLANT ELECTRICAL ENGINEER.MATERIALS PLANNER/PRODUCTION PLANNER Work Phone: [facility] 11-07-2022 15:04-0500 Body weight 86.18 kg Alis Older PLANT ELECTRICAL ENGINEER.MATERIALS PLANNER/PRODUCTION PLANNER Work Phone: [facility] 11-07-2022 15:04-0500 Heart rate 109 /min Alis Older PLANT ELECTRICAL ENGINEER.MATERIALS PLANNER/PRODUCTION PLANNER Work Phone: [facility] 11-07-2022 15:04-0500 Respiratory rate 18 /min Alis Older PLANT ELECTRICAL ENGINEER.MATERIALS PLANNER/PRODUCTION PLANNER Work Phone: [facility] 10-27-2022 09:00-0500 Body temperature 97.8 [degF] Dr. Lobito Maldonado Work Phone: [facility] 10-27-2022 09:00-0500 Diastolic blood pressure 96 mm[Hg] Dr. Lobito Maldonado Work Phone: 9(966)431-827263 [place] [address] 10-27-2022 09:00-0500 Heart rate 90 /min Dr. Lobito Maldonado Work Phone: 6(915)958-138963 [place] [address] 10-27-2022 09:00-0500 Respiratory rate 18 /min Dr. Lobito Maldonado Work Phone: 0(131)602-421763 [place] [address] 10-27-2022 09:00-0500 SaO2% (BldA) [Mass fraction] 94 % Dr. Lobito Maldonado Work Phone: 2(905)146-342063 [place] [address] 10-27-2022 09:00-0500 Systolic blood pressure 143 mm[Hg] Dr. Lobito Maldonado Work Phone: 9(938)950-983063 [place] [address] 10-26-2022 01:49-0500 Body mass index (BMI) [Ratio] 26.1 kg/m2 Dr. Lobito Maldonado Work Phone: 0(186)405-648663 [place] [address] 10-26-2022 01:49-0500 Body weight 82.[address] Lobito Maldonado Work Phone: 6(360)733-620863 [place] [address] 10-26-2022 00:39-0500 Body temperature 98.6 [degF] Dr. Lobito Maldonado Work Phone: 7(176)098-629763 [place] [address] 10-26-2022 00:39-0500 Diastolic blood pressure 90 mm[Hg] Dr. Lobito Maldonado Work Phone: 7(472)097-112263 [place] [address] 10-26-2022 00:39-0500 Heart rate 81 /min Dr. Lobito Maldonado Work Phone: 5(103)218-245363 [place] [address] 10-26-2022 00:39-0500 Respiratory rate 24 /min Dr. Lobito Maldonado Work Phone: 8(726)967-313363 [place] [address] 10-26-2022 00:39-0500 SaO2% (BldA) [Mass fraction] 97 % Dr. Lobito Maldonado Work Phone: 8(721)528-817563 [place] [address] 10-26-2022 00:39-0500 Systolic blood pressure 128 mm[Hg] Dr. Lobito Maldonado Work Phone: 8(636)442-029363 [place] [address] 10-25-2022 18:30-0500 Body height 177.[address] Lobito Maldonado Work Phone: 0(578)217-594363 [place] [address] 10-25-2022 18:30-0500 Body mass index (BMI) [Ratio] 28 kg/m2 Dr. Lobito Maldonado Work Phone: 1(354)351-225863 [place] [address] 10-25-2022 18:30-0500 Body weight 88.[address] Lobito Maldonado Work Phone: 0(578)444-923863 [place] [address] 09-08-2022 13:50-0500 Body temperature 97.7 [degF] Dr. Lobito Maldonado Work Phone: 1(158)453-492463 [place] [address] 09-08-2022 13:50-0500 Diastolic blood pressure 91 mm[Hg] Dr. Lobito Maldonado Work Phone: 1(982)001-245063 [place] [address] 09-08-2022 13:50-0500 Heart rate 94 /min Dr. Lobito Maldonado Work Phone: 8(025)882-572663 [place] [address] 09-08-2022 13:50-0500 Respiratory rate 18 /min Dr. Lobito Maldonado Work Phone: 5(468)159-142763 [place] [address] 09-08-2022 13:50-0500 SaO2% (BldA) [Mass fraction] 94 % Dr. Lobito Maldonado Work Phone: 7(881)355-423463 [place] [address] 09-08-2022 13:50-0500 Systolic blood pressure 139 mm[Hg] Dr. Lobito Maldonado Work Phone: 9(807)728-485663 [place] [address] 09-06-2022 14:30-0500 Body height 177.[address] Lobito Maldonado Work Phone: 4(346)965-445763 [place] [address] Work Phone: 09-06-2022 14:30-0500 Body weight 82.[address] Lobito Maldonado Work Phone: [facility] 09-06-2022 13:12-0500 Body mass index (BMI) [Ratio] 26.1 kg/m2 Dr. Lobito Maldonado Work Phone: [facility] 09-06-2022 12:00-0500 Respiratory rate 16 /min Dr. Lobito Maldonado Work Phone: [facility] Work Phone: 09-06-2022 11:26-0500 Body temperature 98.7 [degF] Dr. Lobito Maldonado Work Phone: [facility] Work Phone: 09-06-2022 11:26-0500 Diastolic blood pressure 94 mm[Hg] Dr. Lobito Maldonado Work Phone: [facility] Work Phone: 09-06-2022 11:26-0500 Heart rate 97 /min Dr. Lobito Maldonado Work Phone: [facility] Work Phone: 09-06-2022 11:26-0500 SaO2% (BldA) [Mass fraction] 97 % Dr. Lobito Maldonado Work Phone: [facility] Work Phone: 09-06-2022 11:26-0500 Systolic blood pressure 140 mm[Hg] Dr. Lobito Maldonado Work Phone: [facility] Work Phone: 09-06-2022 08:16-0500 Body height 177.[address] Lobito Maldonado Work Phone: [facility] Work Phone: 09-06-2022 08:16-0500 Body mass index (BMI) [Ratio] 27.1 kg/m2 Dr. Lobito Maldonado Work Phone: [facility] Work Phone: 09-06-2022 08:16-0500 Body weight 85.[address] Lobito Maldonado Work Phone: [facility] Work Phone: 08-19-2022 16:10-0500 Body weight 86.64 kg Lobito Maldonado MD Work Phone: [facility] 08-19-2022 16:10-0500 Diastolic blood pressure 87 mm[Hg] Lobito Maldonado MD Work Phone: [facility] 08-19-2022 16:10-0500 Heart rate 106 /min Lobito Maldonado MD Work Phone: [facility] 08-19-2022 16:10-0500 Respiratory rate 18 /min Lobito Maldonado MD Work Phone: [facility] 08-19-2022 16:10-0500 Systolic blood pressure 129 mm[Hg] Lobito Maldonado MD Work Phone: [facility] 08-08-2022 11:31-0500 Body height 177.[address] Lobito Maldonado Work Phone: [facility] Work Phone: 08-08-2022 11:31-0500 Body mass index (BMI) [Ratio] 27.3 kg/m2 Dr. Lobito Maldonado Work Phone: [facility] 08-08-2022 11:31-0500 Body temperature 97.8 [degF] Dr. Lobito Maldonado Work Phone: [facility] 08-08-2022 11:31-0500 Body weight 86.[address] Lobito Maldonado Work Phone: [facility] 08-08-2022 11:31-0500 Diastolic blood pressure 82 mm[Hg] Dr. Lobito Maldonado Work Phone: [facility] 08-08-2022 11:31-0500 Heart rate 103 /min Dr. Lobito Maldonado Work Phone: [facility] 08-08-2022 11:31-0500 Respiratory rate 16 /min Dr. Lobito Maldonado Work Phone: 7(030)195-090695 [place] [address] 08-08-2022 11:31-0500 SaO2% (BldA) [Mass fraction] 97 % Dr. Lobito Maldonado Work Phone: 5(720)553-100995 [place] [address] 08-08-2022 11:31-0500 Systolic blood pressure 138 mm[Hg] Dr. Lobito Maldonado Work Phone: 8(078)504-416895 [place] [address] 07-18-2022 11:58-0400 Body temperature 98.2 [degF] Dr. Lobito Maldonado Work Phone: 5(095)056-820963 [place] [address] 07-18-2022 11:58-0400 Diastolic blood pressure 89 mm[Hg] Dr. Lobito Maldonado Work Phone: 6(137)819-114263 [place] [address] 07-18-2022 11:58-0400 Heart rate 56 /min Dr. Lobito Maldonado Work Phone: 6(682)179-418095 [place] [address] 07-18-2022 11:58-0400 Respiratory rate 16 /min Dr. Lobito Maldonado Work Phone: 5(999)766-327895 [place] [address] 07-18-2022 11:58-0400 SaO2% (BldA) [Mass fraction] 96 % Dr. Lobito Maldonado Work Phone: 0(107)001-083095 [place] [address] 07-18-2022 11:58-0400 Systolic blood pressure 136 mm[Hg] Dr. Lobito Maldonado Work Phone: 8(159)622-266995 [place] [address] 07-13-2022 14:21-0400 Body height 177.[address] Lobito Maldonado Work Phone: 4(008)651-502295 [place] [address] Work Phone: 07-13-2022 14:21-0400 Body weight 85.[address] Lobito Maldonado Work Phone: 7(373)735-356495 [place] [address] 07-13-2022 06:03-0400 Body temperature 97.6 [degF] Dr. Lobito Maldonado Work Phone: [facility] Work Phone: 07-13-2022 06:03-0400 Diastolic blood pressure 79 mm[Hg] Dr. Lobito Maldonado Work Phone: [facility] Work Phone: 07-13-2022 06:03-0400 Heart rate 86 /min Dr. Lobito Maldonado Work Phone: [facility] Work Phone: 07-13-2022 06:03-0400 Respiratory rate 18 /min Dr. Lobito Maldonado Work Phone: [facility] Work Phone: 07-13-2022 06:03-0400 SaO2% (BldA) [Mass fraction] 95 % Dr. Lobito Maldonado Work Phone: [facility] Work Phone: 07-13-2022 06:03-0400 Systolic blood pressure 126 mm[Hg] Dr. Lobito Maldonado Work Phone: [facility] Work Phone: 07-13-2022 05:57-0400 Body height 177.[address] Lobito Maldonado Work Phone: [facility] Work Phone: 07-13-2022 05:57-0400 Body mass index (BMI) [Ratio] 27.1 kg/m2 Dr. Lobito Maldonado Work Phone: [facility] 07-13-2022 05:57-0400 Body weight 85.[address] Lobito Maldonado Work Phone: [facility] Work Phone: 07-04-2022 14:29-0400 Diastolic blood pressure 65 mm[Hg] Dr. Lobito Maldonado Work Phone: [facility] 07-04-2022 14:29-0400 Heart rate 78 /min Dr. Lobito Maldonado Work Phone: [facility] 07-04-2022 14:29-0400 Respiratory rate 18 /min Dr. Lobito Maldonado Work Phone: [facility] 07-04-2022 14:29-0400 SaO2% (BldA) [Mass fraction] 100 % Dr. Lobito Maldonado Work Phone: [facility] 07-04-2022 14:29-0400 Systolic blood pressure 110 mm[Hg] Dr. Lobito Maldonado Work Phone: [facility] 07-04-2022 10:41-0400 Body height 177.[address] Lobito Maldonado Work Phone: [facility] Work Phone: 07-04-2022 10:41-0400 Body mass index (BMI) [Ratio] 27.6 kg/m2 Dr. Lobito Maldonado Work Phone: [facility] 07-04-2022 10:41-0400 Body temperature 97.3 [degF] Dr. Lobito Maldonado Work Phone: [facility] 07-04-2022 10:41-0400 Body weight 87.[address] Lobito Maldonado Work Phone: 2(648)930-279163 [place] [address] 07-04-2022 09:53-0400 Body mass index (BMI) [Ratio] 27.6 kg/m2 Dr. Lobito Maldonado Work Phone: [facility] 07-04-2022 09:53-0400 Body weight 87.[address] Lobito Maldonado Work Phone: [facility] 05-16-2022 15:45-0400 Body temperature 97.3 [degF] Lobito Maldonado MD Work Phone: [facility] 05-16-2022 15:45-0400 Body weight 85.64 kg Lobito Maldonado MD Work Phone: [facility] 05-16-2022 15:45-0400 Diastolic blood pressure 78 mm[Hg] Lobito Maldonado MD Work Phone: [facility] 05-16-2022 15:45-0400 Heart rate 104 /min Lobito Maldonado MD Work Phone: [facility] 05-16-2022 15:45-0400 Respiratory rate 18 /min Lobito Maldonado MD Work Phone: [facility] 05-16-2022 15:45-0400 Systolic blood pressure 124 mm[Hg] Lobito Maldonado MD Work Phone: [facility] 03-25-2022 14:25-0400 Body height 177.8 cm FIRE MANAGER-C Souleymane Elliott FIRE MANAGER Work Phone: [facility] Work Phone: 03-25-2022 14:25-0400 Body mass index (BMI) [Ratio] 27.9 kg/m2 FIRE MANAGER-C Souleymane Elliott FIRE MANAGER Work Phone: [facility] Work Phone: 03-25-2022 14:25-0400 Body weight 88.45 kg FIRE MANAGER-C Souleymane Elliott FIRE MANAGER Work Phone: [facility] Work Phone: 03-25-2022 14:25-0400 Diastolic blood pressure 78 mm[Hg] FIRE MANAGER-C Souleymane Elliott FIRE MANAGER Work Phone: [facility] Work Phone: 03-25-2022 14:25-0400 Heart rate 108 /min FIRE MANAGER-C Souleymane Elliott FIRE MANAGER Work Phone: [facility] Work Phone: 03-25-2022 14:25-0400 SaO2% (BldA) [Mass fraction] 95 % FIRE MANAGER-C Souleymane Elliott FIRE MANAGER Work Phone: [facility] Work Phone: 03-25-2022 14:25-0400 Systolic blood pressure 118 mm[Hg] FIRE MANAGER-C Souleymane Elliott FIRE MANAGER Work Phone: [facility] Work Phone: 03-10-2022 09:38-0400 Body temperature 97.81 [degF] Lobito Maldonado MD Work Phone: [facility] 03-10-2022 09:38-0400 Body weight 87.73 kg Lobito Maldonado MD Work Phone: [facility] 03-10-2022 09:38-0400 Diastolic blood pressure 82 mm[Hg] Lobito Maldonado MD Work Phone: [facility] 03-10-2022 09:38-0400 Heart rate 84 /min Lobito Maldonado MD Work Phone: [facility] 03-10-2022 09:38-0400 Respiratory rate 18 /min Lobito Maldonado MD Work Phone: [facility] 03-10-2022 09:38-0400 Systolic blood pressure 130 mm[Hg] Lobito Maldonado MD Work Phone: [facility] 03-07-2022 00:34-0400 Diastolic blood pressure 92 mm[Hg] FIRE MANAGER-C Souleymane Elliott FIRE MANAGER Work Phone: [facility] Work Phone: 03-07-2022 00:34-0400 Heart rate 83 /min FIRE MANAGER-Velma Elliott FIRE MANAGER Work Phone: [facility] Work Phone: 03-07-2022 00:34-0400 Respiratory rate 16 /min FIRE MANAGER-C Souleymane Elliott FIRE MANAGER Work Phone: [facility] Work Phone: 03-07-2022 00:34-0400 SaO2% (BldA) [Mass fraction] 98 % FIRE MANAGER-C Souleymane Elliott FIRE MANAGER Work Phone: [facility] Work Phone: 03-07-2022 00:34-0400 Systolic blood pressure 146 mm[Hg] FIRE MANAGER-C Souleymane Elliott FIRE MANAGER Work Phone: [facility] Work Phone: 03-06-2022 22:07-0400 Body height 177.8 cm FIRE MANAGER-C Souleymane Elliott FIRE MANAGER Work Phone: [facility] Work Phone: 03-06-2022 22:07-0400 Body mass index (BMI) [Ratio] 27.8 kg/m2 FIRE MANAGER-C Souleymane Elliott FIRE MANAGER Work Phone: [facility] Work Phone: 03-06-2022 22:07-0400 Body temperature 96.3 [degF] FIRE MANAGER-C Souleymane Elliott FIRE MANAGER Work Phone: [facility] Work Phone: 03-06-2022 22:07-0400 Body weight 87.99 kg FIRE MANAGER-C Souleymane Elliott FIRE MANAGER Work Phone: [facility] Work Phone: 03-04-2022 13:12-0400 Body temperature 97.9 [degF] FIRE MANAGER-C Souleymane Elliott FIRE MANAGER Work Phone: [facility] Work Phone: 03-04-2022 13:12-0400 Diastolic blood pressure 95 mm[Hg] FIRE MANAGER-C Souleymane Elliott FIRE MANAGER Work Phone: [facility] Work Phone: 03-04-2022 13:12-0400 Heart rate 81 /min FIRE MANAGER-C Souleymane Elliott FIRE MANAGER Work Phone: [facility] Work Phone: 03-04-2022 13:12-0400 Respiratory rate 18 /min FIRE MANAGER-C Souleymane Elliott FIRE MANAGER Work Phone: [facility] Work Phone: 03-04-2022 13:12-0400 SaO2% (BldA) [Mass fraction] 95 % FIRE MANAGER-Velma Elliott FIRE MANAGER Work Phone: [facility] Work Phone: 03-04-2022 13:12-0400 Systolic blood pressure 141 mm[Hg] FIRE MANAGER-C Souleymane Elliott FIRE MANAGER Work Phone: [facility] Work Phone: 03-04-2022 06:00-0400 Body weight 87.9 kg FIRE MANAGER-C Souleymane Elliott FIRE MANAGER Work Phone: [facility] Work Phone: 03-03-2022 10:54-0400 Body height 177.8 cm FIRE MANAGER-Velma Elliott FIRE MANAGER Work Phone: [facility] Work Phone: 02-27-2022 16:21-0400 Body mass index (BMI) [Ratio] 28.2 kg/m2 FIRE MANAGER-Velma Elliott FIRE MANAGER Work Phone: [facility] Work Phone: 02-27-2022 16:19-0400 Body temperature 97.7 [degF] FIRE MANAGER-C Souleymane Elliott FIRE MANAGER Work Phone: [facility] Work Phone: 02-27-2022 16:19-0400 Diastolic blood pressure 96 mm[Hg] FIRE MANAGER-C Souleymane Elliott FIRE MANAGER Work Phone: [facility] Work Phone: 02-27-2022 16:19-0400 Heart rate 99 /min FIRE MANAGER-C Souleymane Elliott FIRE MANAGER Work Phone: [facility] Work Phone: 02-27-2022 16:19-0400 Respiratory rate 18 /min FIRE MANAGER-Velma Elliott FIRE MANAGER Work Phone: [facility] Work Phone: 02-27-2022 16:19-0400 SaO2% (BldA) [Mass fraction] 99 % FIRE MANAGER-C Souleymane Elliott FIRE MANAGER Work Phone: [facility] Work Phone: 02-27-2022 16:19-0400 Systolic blood pressure 165 mm[Hg] FIRE MANAGER-C Souleymane Elliott FIRE MANAGER Work Phone: [facility] Work Phone: 02-27-2022 12:20-0400 Body height 175.26 cm FIRE MANAGER-C Souleymane Elliott FIRE MANAGER Work Phone: [facility] Work Phone: 02-27-2022 12:20-0400 Body mass index (BMI) [Ratio] 29.9 kg/m2 FIRE MANAGER-C Souleymane Elliott FIRE MANAGER Work Phone: [facility] Work Phone: 02-27-2022 12:20-0400 Body weight 91.9 kg FIRE MANAGER-C Souleymane Elliott FIRE MANAGER Work Phone: [facility] Work Phone: 01-03-2022 13:16-0400 Body mass index (BMI) [Ratio] 28.4 kg/m2 FIRE MANAGER-C Souleymane Elliott FIRE MANAGER Work Phone: [facility] Work Phone: 01-03-2022 13:16-0400 Body weight 89.81 kg FIRE MANAGER-C Souleymane Elliott FIRE MANAGER Work Phone: [facility] Work Phone: 01-03-2022 13:16-0400 Diastolic blood pressure 80 mm[Hg] FIRE MANAGER-C Souleymane Elliott FIRE MANAGER Work Phone: [facility] Work Phone: 01-03-2022 13:16-0400 Heart rate 95 /min FIRE MANAGER-C Souleymane Elliott FIRE MANAGER Work Phone: [facility] Work Phone: 01-03-2022 13:16-0400 Respiratory rate 18 /min FIRE MANAGER-C Souleymane Elliott FIRE MANAGER Work Phone: [facility] Work Phone: 01-03-2022 13:16-0400 SaO2% (BldA) [Mass fraction] 97 % FIRE MANAGER-C Souleymane Elliott FIRE MANAGER Work Phone: [facility] Work Phone: 01-03-2022 13:16-0400 Systolic blood pressure 120 mm[Hg] FIRE MANAGER-C Souleymane Elliott FIRE MANAGER Work Phone: [facility] Work Phone: 01-03-2022 13:16-0400 Body mass index (BMI) [Ratio] 28.4 kg/m2 FIRE MANAGER-C Souleymane Elliott FIRE MANAGER Work Phone: [facility] Work Phone: 01-03-2022 13:16-0400 Body weight 89.81 kg FIRE MANAGER-C Souleymane Elliott FIRE MANAGER Work Phone: [facility] Work Phone: 01-03-2022 13:16-0400 Diastolic blood pressure 80 mm[Hg] FIRE MANAGER-C Souleymane Elliott FIRE MANAGER Work Phone: [facility] Work Phone: 01-03-2022 13:16-0400 Heart rate 95 /min FIRE MANAGER-C Souleymane Elliott FIRE MANAGER Work Phone: [facility] Work Phone: 01-03-2022 13:16-0400 Respiratory rate 18 /min FIRE MANAGER-C Souleymane Elliott FIRE MANAGER Work Phone: [facility] Work Phone: 01-03-2022 13:16-0400 SaO2% (BldA) [Mass fraction] 97 % FIRE MANAGER-C Souleymane Elliott FIRE MANAGER Work Phone: [facility] Work Phone: 01-03-2022 13:16-0400 Systolic blood pressure 120 mm[Hg] FIRE MANAGER-C Souleymane Elliott FIRE MANAGER Work Phone: [facility] Work Phone: 12-09-2021 21:51-0400 Body temperature 98.4 [degF] FIRE MANAGER-C Souleymane Elliott FIRE MANAGER Work Phone: [facility] Work Phone: 12-09-2021 21:51-0400 Diastolic blood pressure 98 mm[Hg] FIRE MANAGER-C Souleymane Elliott FIRE MANAGER Work Phone: [facility] Work Phone: 12-09-2021 21:51-0400 Heart rate 93 /min FIRE MANAGER-C Souleymane Elliott FIRE MANAGER Work Phone: [facility] Work Phone: 12-09-2021 21:51-0400 Respiratory rate 18 /min FIRE MANAGER-C Souleymane Elliott FIRE MANAGER Work Phone: [facility] Work Phone: 12-09-2021 21:51-0400 SaO2% (BldA) [Mass fraction] 97 % FIRE MANAGER-C Souleymane Elliott FIRE MANAGER Work Phone: [facility] Work Phone: 12-09-2021 21:51-0400 Systolic blood pressure 151 mm[Hg] FIRE MANAGER-C Souleymane Elliott FIRE MANAGER Work Phone: [facility] Work Phone: 12-08-2021 15:59-0400 Body weight 89.4 kg FIRE MANAGER-C Souleymane Elliott FIRE MANAGER Work Phone: [facility] Work Phone: 12-08-2021 11:08-0400 Body mass index (BMI) [Ratio] 28.3 kg/m2 FIRE MANAGER-C Souleymane Elliott FIRE MANAGER Work Phone: [facility] Work Phone: 12-08-2021 04:48-0400 Inhaled oxygen flow rate 1 L/min FIRE MANAGER-C Souleymane Elliott FIRE MANAGER Work Phone: [facility] Work Phone: 06-08-2017 14:33-0400 BMI (Body Mass Index) 29.95 kg/m2 [facility] Work Phone: 06-08-2017 14:33-0400 BP Diastolic 70 mm[Hg] [facility] Work Phone: 06-08-2017 14:33-0400 BP Diastolic 80 mm[Hg] [facility] Work Phone: 06-08-2017 14:33-0400 BP Systolic 110 mm[Hg] [facility] Work Phone: 06-08-2017 14:33-0400 BP Systolic 120 mm[Hg] [facility] Work Phone: 06-08-2017 14:33-0400 Height 175.26 cm [facility] Work Phone: 06-08-2017 14:33-0400 Pulse (Heart Rate) 80 /min [facility] Work Phone: 06-08-2017 14:33-0400 Respiratory Rate 20 /min [facility] Work Phone: 06-08-2017 14:33-0400 Weight 91.99 kg [facility] Work Phone: 07-05-2016 11:40-0400 BSA (Body Surface Area) 2.14 m2 [facility] Work Phone: Encounters Encounter Date Encounter Type Care Provider Facility Start: 02-15-2025 End: 02-25-2025 Follow-up encounter Lobito Maldonado MD Work Phone: [facility] [place] Start: 02-14-2025 End: 02-18-2025 Refill Lobito Maldonado MD Work Phone: [facility] [place] Comment on above: Refill Request Start: 02-13-2025 End: 02-13-[address] Antony Burnett MD -[facility] Work Phone: Start: 02-13-2025 End: 02-13-[address] Lobito Maldonado MD Work Phone: [facility] Work Phone: Start: 02-12-2025 End: 02-13-2025 ambulatory LOBITO MALDONADO Facility:[facility] Start: 02-12-2025 Patient encounter procedure ALIS Elizalde TOMA [facility] Start: 01-28-2025 End: 01-28-2025 Refill Lobito Maldonado MD Work Phone: [facility] [place] Comment on above: Refill Request Start: 01-16-2025 End: 01-16-2025 ambulatory KAT GALINDO Facility:[facility] Start: 11-07-2024 End: 11-08-2024 Refill oLbito Maldonado MD Work Phone: [facility] [place] Comment on above: Refill Request Start: 10-28-2024 End: 10-28-2024 Refill Lobito Maldonado MD Work Phone: [facility] [place] Comment on above: Refill Request Start: 10-24-2024 End: 10-24-2024 ambulatory LOBITO MALDONADO Facility:[facility] Start: 10-24-2024 End: 10-24-2024 Office outpatient visit 25 minutes Lobito Maldonado MD Work Phone: [facility] [place] Comment on above: Type 2 diabetes nanda itus without complication, with long-term current use of insulin (HCC) (Primary Dx); Hypertension, essential; Mixed hyperlipidemia; 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; Prostate cancer (HCC); Nonintractable generalized 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 (HCC); Hypomagnesemia; Alcohol-induced chronic pancreatitis (HCC) Start: 10-23-2024 End: 10-24-2024 Telephone encounter Lobito Maldonado MD Work Phone: [facility] [place] Comment on above: Appointment Start: 10-10-2024 End: 10-11-2024 Refill Lobito Maldonado MD Work Phone: [facility] [place] Comment on above: Refill Request Start: 10-09-2024 End: 10-09-2024 ambulatory Taras Santamaria Facility:[facility] Start: 09-11-2024 End: 09-11-2024 Refill Lobito Maldonado MD Work Phone: [facility] [place] Comment on above: Refill Request Start: 08-16-2024 End: 08-16-2024 Refill Lobito Maldonado MD Work Phone: [facility] [place] Comment on above: Refill Request Start: 08-13-2024 End: 08-13-2024 Emergency department patient visit Neftali Dickson Facility:[facility] Start: 08-12-2024 End: 08-12-2024 Emergency department patient visit Lobito Maldonado Facility:[facility] Start: 07-31-2024 End: 07-31-2024 Telephone encounter Lobito Maldonado MD Work Phone: [facility] [place] Comment on above: Results Start: 07-22-2024 End: 07-22-2024 Subsequent hospital visit by physician [facility] Work Phone: Radiology Comment on above: Bronchitis [J40] Start: 07-22-2024 End: 07-22-2024 ambulatory LOBITO MALDONADO Facility:[facility] Start: 07-18-2024 End: 07-18-2024 ambulatory KAT GALINDO Facility:[facility] Start: 07-18-2024 End: 07-18-2024 Patient encounter procedure Kat Galindo OD Work Phone: Ophthalmology Comment on above: Primary open angle g laucoma (POAG) of both eyes, mild stage (Primary Dx); Optic cupping of both eyes; Type 2 diabetes mellitus without retinopathy (HCC); Combined form of age-related cataract, both eyes; Myopia, bilateral; Regular astigmatism, bilateral; Presbyopia Start: 07-07-2024 End: 07-07-2024 ambulatory Roxie Zuñiga RN NURSE SEAFOOD MANAGER Comment on above: Results Start: 07-05-2024 End: 07-08-2024 Refill Lobito Maldonado MD Work Phone: [facility] [place] Comment on above: Refill Request Start: 07-04-2024 End: 07-04-2024 Telephone encounter Lobito Maldonado MD Work Phone: [facility] [place] Comment on above: Results Start: 07-03-2024 End: 07-03-2024 ambulatory LOBITO MALDONADO Facility:[facility] Start: 07-03-2024 End: 07-03-2024 Patient encounter procedure Lobito Maldonado MD Work Phone: [facility] [place] Comment on above: 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) (Primary Dx); Hypertension, essential; Bronchitis Start: 06-21-2024 End: 06-21-2024 Refill Lobito Maldonado MD Work Phone: [facility] [place] Comment on above: Refill Request Start: 06-19-2024 End: 06-21-2024 Evaluation and management of inpatient Roxana Cox Facility:[facility] Start: 06-19-2024 ambulatory Roxana Cox [facility] Start: 05-24-2024 End: 05-24-2024 Refill Lobito Maldonado MD Work Phone: [facility] [place] Comment on above: Refill Request Start: 05-03-2024 End: 05-03-2024 ambulatory Taras Santamaria Facility:[facility] Start: 04-29-2024 End: 04-29-2024 ambulatory LOBITO MALDONADO Facility:[facility] Start: 04-29-2024 End: 04-29-2024 Nursing evaluation of patient and report Mi Nurse Work Phone: [facility] [place] Comment on above: Need for vaccination (Primary Dx) Start: 04-22-2024 Refill Lobito pollack MD Work Phone: [facility] [place] Start: 04-19-2024 Refill Lobito pollack MD Work Phone: [facility] [place] Comment on above: Refill Request Start: 04-18-2024 End: 04-18-2024 ambulatory [place]y [place]: 04-04-2024 End: 04-04-2024 ambulatory Taras [place]amaria [place] Start: 04-04-2024 End: 04-04-2024 ambulatory Taras [place] Facility:[facility] Start: 03-29-2024 Refill Lobito pollack MD Work Phone: [facility] [place] Comment on above: Refill Request Start: 03-06-2024 Refill Lobito pollack MD Work Phone: [facility] [place] Comment on above: Refill Request Start: 03-01-2024 Refill Lobito pollack MD Work Phone: [facility] [place] Comment on above: Refill Request Start: 02-27-2024 Telephone encounter Alis merritt APRN.MATERIALS PLANNER/PRODUCTION PLANNER Work Phone: Internal [facility] Comment on above: Results Start: 02-25-2024 End: 02-25-2024 Emergency department patient visit Lobito Maldonado Facility:[facility] Start: 02-23-2024 End: 02-23-2024 ambulatory ALIS CHUA Facility:[facility] Start: 02-09-2024 Refill Lobito pollack MD Work Phone: Internal [facility] Comment on above: Refill Request Start: 02-07-2024 Telephone encounter Alis merritt APRN.MATERIALS PLANNER/PRODUCTION PLANNER Work Phone: [facility] [place] Comment on above: Results Start: 02-05-2024 End: 02-05-2024 [facility] Comment on above: Shortness of breath [R06.02] Start: 02-05-2024 End: 02-05-2024 Patient encounter procedure Alis Chua PLANT ELECTRICAL ENGINEER.MATERIALS PLANNER/PRODUCTION PLANNER Work Phone: [facility] [place] Comment on above: Medicare annual well ness visit, subsequent (Primary Dx); Shortness of breath; Tachycardia; Hypertension, essential; Alcohol-induced chronic pancreatitis (HCC); Type 2 diabetes mellitus without complication, with long-term current use of insulin (HCC); Mixed hyperlipidemia; Prostate cancer (HCC); Nonintractable generalized 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 (HCC) Start: 02-02-2024 Refill Lobito pollack MD Work Phone: [facility] [place] Comment on above: Refill Request Start: 01-16-2024 End: 01-16-2024 Patient encounter procedure Puja Carreralashawnjessie OD Work Phone: Ophthalmology Comment on above: Type 2 diabetes nanda itus without retinopathy (HCC) (Primary Dx); Primary open angle glaucoma (POAG) of both eyes, mild stage; Optic cupping of both eyes; Combined form of age-related cataract, both eyes; Hypertensive retinopathy, bilateral; Myopia, bilateral; Regular astigmatism, bilateral; Presbyopia Start: 01-10-2024 Patient Outreach Lobito chester MD Work Phone: [facility] [place] Comment on above: Transition Of Care Start: 01-08-2024 Non-patient / Non-visit Dr. Lobito Maldonado Work Phone: [facility] Work Phone: Start: 01-07-2024 End: 01-12-2024 ambulatory DAIANA BANDA DO Facility:[facility] Start: 01-07-2024 End: 01-11-2024 Outreach Lab DAIANA BANDA DO [facility] Start: 01-07-2024 Non-patient / Non-visit Dr. Lobito Maldonado Work Phone: [facility] Work Phone: Start: 01-07-2024 End: 01-08-2024 Evaluation and management of inpatient Dr. Lobito Maldonado [facility] Work Phone: Start: 12-28-2023 Telephone encounter Vanessa TAN Ophthalmology Comment on above: Appointment Start: 12-22-2023 End: 12-22-[address] Lobito Maldonado Work Phone: [facility] Work Phone: Start: 12-22-2023 End: 12-22-[address] Lobito Maldonado Work Phone: [facility] Work Phone: Start: 11-27-2023 End: 11-27-2023 Nursing evaluation of patient and report Mi Nurse Work Phone: [facility] [place] Comment on above: Encounter for immuni zation (Primary Dx) Start: 11-20-2023 End: 11-20-2023 Emergency department patient visit Dr. Lobito Maldonado [facility] Work [facility]: Start: 11-14-2023 Telephone encounter Lobito de leon MD Work Phone: [facility] [place] Comment on above: Patient Update; Orde rs Start: 11-07-2023 End: 11-07-2023 Emergency department patient visit Dr. Lobito Maldonado [facility] Work [facility]: Start: 10-23-2023 End: 10-23-[address] Lobito Maldonado Work Phone: [facility] Work Phone: Start: 10-10-2023 End: 10-10-2023 Emergency department patient visit Dr. Lobito Maldonado [facility] Work [facility]: Start: 10-04-2023 End: 10-04-[address] Lobito Maldonado Work Phone: [facility] G[facility]enter[facility] Work Phone: Start: 08-29-2023 Refill Lobito pollack MD Work Phone: [facility] [place] Comment on above: Refill Request Start: 08-21-2023 Refill Lobito pollack MD Work Phone: [facility] [place] Comment on above: Refill Request Start: 08-09-2023 End: 08-09-2023 Emergency department patient visit Dr. Lobito Maldonado [facility] Work Phone: Start: 06-16-2023 Telephone encounter Lobito de leon MD Work Phone: [facility] [place] Comment on above: Results Start: 06-09-2023 End: 06-09-2023 Patient encounter procedure Alis Dunne APRN.MATERIALS PLANNER/PRODUCTION PLANNER Work Phone: [facility] [place] Comment on above: Type 2 diabetes nanda itus without complication, with long-term current use of insulin (HCC) (Primary Dx); Encounter for immunization Start: 06-05-2023 End: 06-05-2023 Subsequent hospital visit by physician [facility] Work Phone: Radiology Comment on above: Pneumonia of left lo wer lobe due to infectious organism [J18.9] Start: 05-19-2023 End: 05-19-2023 Patient encounter procedure Danilo Benitez Work Phone: Podiatry Comment on above: Type 2 diabetes nanda itus without complication, with long-term current use of insulin (HCC) (Primary Dx); Dermatophytosis, nail; Pain in toe of left foot; Pain in toe of right foot; Diminished pulses in lower extremity Start: 05-04-2023 Non-patient / Non-visit Dr. Lobito Maldonado Work Phone: [facility] Work Phone: Start: 05-03-2023 End: 05-04-2023 Emergency department patient visit Dr. Lobito Maldonado [facility] Work [facility]: Start: 05-01-2023 Refill Lobito pollack MD Work Phone: [facility] [place] Comment on above: Refill Request Start: 04-30-2023 End: 04-30-2023 Emergency department patient visit Dr. Lobito Maldonado [facility] Work [facility]: Start: 04-19-2023 End: 04-19-[address] Lobito Maldonado Work Phone: [facility] Work Phone: Start: 03-10-2023 End: 03-10-2023 Emergency department patient visit Dr. Lobito Maldonado Work Phone: [facility] Start: 02-21-2023 End: 02-21-2023 Patient encounter procedure Freedom Delacruz MD Work Phone: Ophthalmology Comment on above: Type 2 diabetes nanda itus without retinopathy (HCC) (Primary Dx); Primary open angle glaucoma (POAG) of both eyes, mild stage; Hypertensive retinopathy, bilateral; Combined form of age-related cataract, both eyes; Meibomian gland dysfunction (MGD) of upper and lower lids of both eyes; Glaucoma suspect, both eyes Start: 02-06-2023 End: 02-06-2023 Patient encounter procedure Lobito Maldonado MD Work Phone: [facility] [place] Comment on above: Nausea (Primary Dx); Hypertension, essential; 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 epilepticus, unspecified epilepsy type (HCC); Alcohol-induced chronic pancreatitis (HCC); Dizziness; Type 2 diabetes mellitus without complication, with long-term current use of insulin (HCC) Start: 02-02-2023 End: 02-02-[address] Lobito Maldonado Work Phone: [facility] Work Phone: Start: 02-02-2023 End: 02-02-[address] Lobito Maldonado Work Phone: [facility] Start: 02-02-2023 End: 02-02-2023 Dr. Lobito Maldonado Work Phone: [facility] Start: 01-24-2023 Telephone encounter Lobito de leon MD Work Phone: [facility] [place] Comment on above: Patient Update Start: 01-22-2023 End: 01-22-2023 Emergency department patient visit Dr. Lobito Maldonado [facility] Start: 01-22-2023 End: 01-22-2023 Dr. Lobito Maldonado Work Phone: [facility] Start: 01-21-2023 End: 01-21-2023 Emergency department patient visit Dr. Lobito Maldonado Work Phone: [facility] Start: 01-21-2023 End: 01-21-2023 Dr. Lobito Maldonado Work Phone: [facility] Start: 01-16-2023 Refill Lobito pollack MD Work Phone: [facility] [place] Comment on above: Refill Request Start: 12-27-2022 Telephone encounter Lobito de leon MD Work Phone: Internal Medicine [place] Comment on above: [facility] ER visit Start: 12-26-2022 End: 12-26-2022 Emergency department patient visit Dr. Lobito Maldonado Work Phone: [facility] Work Phone: Start: 12-26-2022 End: 12-26-2022 Dr. Lobito Maldonado Work Phone: [facility] Start: 12-23-2022 End: 12-23-[address] Lobito Maldonado Work Phone: [facility] Start: 12-23-2022 End: 12-23-2022 Dr. Lobito Maldonado Work Phone: [facility] Start: 12-20-2022 Refill Lobito pollack MD Work Phone: [facility] Comment on above: Refill Request Start: 12-16-2022 Telephone encounter Molina LEOS Work Phone: [facility] Comment on above: Results Start: 12-15-2022 End: 12-15-2022 Patient encounter procedure Emmanuel Fritz MD Work Phone: [facility] Comment on above: Sore throat (Primary Dx); URI, acute Start: 12-15-2022 End: 12-15-2022 Dr. Lobito Maldonado Work Phone: [facility] Start: 12-13-2022 End: 12-14-2022 Emergency department patient visit Dr. Lobito Maldonado Work Phone: [facility] Start: 12-13-2022 End: 12-14-2022 Dr. Lobito Maldonado [facility] Start: 12-12-2022 Refill Lobito pollack MD Work Phone: Internal [facility] Comment on above: Refill Request Start: 12-09-2022 End: 12-09-2022 Patient encounter procedure Lobito Maldonado MD Work Phone: Internal Medicine [place] Comment on above: Alcohol-induced tdp displays analyst demian pancreatitis (HCC) (Primary Dx); Type 2 diabetes mellitus without complication, with long-term current use of insulin (HCC); Hypertension, essential; Cervical spondylosis; Nonintractable generalized 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 (HCC); Fatty liver due to alcoholism Start: 12-06-2022 Patient Outreach Lobito chester MD Work Phone: Internal [facility] Comment on above: Transition Of Care Start: 12-02-2022 Non-patient / Non-visit Dr. Lobito Maldonado Work Phone: [facility] Start: 12-02-2022 Dr. Lobito Dwyer Work Phone: [facility] Start: 12-01-2022 Non-patient / Non-visit Dr. Lobito Maldonado Work Phone: [facility] Start: 12-01-2022 Dr. Lobito Dwyer Work Phone: [facility] Start: 12-01-2022 Telephone encounter Lobito de leon MD Work Phone: Internal Medicine [place] Comment on above: Refill Request Start: 12-01-2022 Non-patient / Non-visit Dr. Lobito Maldonado Work Phone: [facility] Start: 12-01-2022 Dr. Lobito Dwyer Work Phone: [facility] Start: 11-30-2022 Non-patient / Non-visit Dr. Lobito Maldonado Work Phone: [facility] Start: 11-30-2022 Dr. Lobito Dwyer Work Phone: [facility] Start: 11-30-2022 Non-patient / Non-visit Dr. Lobito Maldonado Work Phone: [facility] Start: 11-30-2022 Dr. Lobito Dwyer Work Phone: [facility] Start: 11-29-2022 Non-patient / Non-visit Dr. Lobito Maldonado Work Phone: [facility] Start: 11-29-2022 Dr. Lobito Dwyer Work Phone: [facility] Start: 11-29-2022 End: 12-02-2022 Evaluation and management of inpatient Dr. Lobito Maldonado [facility] Start: 11-29-2022 End: 12-02-2022 Dr. Lobito Maldonado [facility] Start: 11-14-2022 Refill Lobito pollack MD Work Phone: [facility] [place] Comment on above: Refill Request Start: 11-09-2022 End: 11-10-2022 Emergency department patient visit Dr. Lobito Maldonado [facility] Start: 11-09-2022 End: 11-10-2022 Dr. Lobito Maldonado [facility] Start: 11-09-2022 End: 11-09-2022 Emergency department patient visit Dr. Loibto Maldonado Work Phone: [facility] Start: 11-09-2022 End: 11-09-2022 Dr. Lobito Maldonado Work Phone: [facility] Start: 11-07-2022 End: 11-07-2022 Patient encounter procedure Alis Older PLANT ELECTRICAL ENGINEER.MATERIALS PLANNER/PRODUCTION PLANNER Work Phone: Internal Medicine [place] Comment on above: Alcohol-induced tdp displays analyst demian pancreatitis (HCC) (Primary Dx) Start: 10-27-2022 Non-patient / Non-visit Dr. Lobito Maldonado Work Phone: [facility] Start: 10-27-2022 Dr. Lobito Dwyer Work Phone: [facility] Start: 10-26-2022 End: 10-27-2022 Evaluation and management of inpatient Dr. Lobito Maldonado Work Phone: [facility] Start: 10-26-2022 End: 10-27-2022 Dr. Lobito Maldonado [facility] Start: 10-26-2022 Non-patient / Non-visit Dr. Lobito Maldonado Work Phone: [facility] Start: 10-26-2022 Dr. Lobito Dwyer Work Phone: [facility] Start: 10-26-2022 Evaluation and management of inpatient Dr. Lobito Maldonado Work Phone: [facility] Start: 10-26-[address] Ash Maldonado Work Phone: [facility] Work Phone: Start: 10-17-2022 Refill Lobito pollack MD Work Phone: [facility] [place] Comment on above: Refill Request Start: 09-20-2022 Refill Lobito pollack MD Work Phone: [facility] [place] Comment on above: Refill Request Start: 09-08-2022 Non-patient / Non-visit Dr. Lobito Maldonado Work Phone: [facility] Start: 09-08-2022 Dr. Lobito Dwyer Work Phone: [facility] Start: 09-07-2022 Non-patient / Non-visit Dr. Lobito Maldonado Work Phone: [facility] Start: 09-07-2022 Dr. Lobito Dwyer Work Phone: [facility] Start: 09-06-2022 Non-patient / Non-visit Dr. Lobito Maldonado Work Phone: [facility] Start: 09-06-2022 End: 09-08-2022 Evaluation and management of inpatient Dr. Lobito Maldonado Work Phone: [facility] Start: 09-06-2022 End: 09-08-2022 Dr. Lobito Maldonado Work Phone: [facility] Start: 08-19-2022 End: 08-19-2022 Subsequent hospital visit by physician X[facility] Work Phone: Radiology Comment on above: Left hip pain [M25.5 52] Start: 08-19-2022 End: 08-19-2022 Patient encounter procedure Lobito Maldonado MD Work Phone: Internal Medicine [place] Comment on above: Low back pain, unspe cified back pain laterality, unspecified chronicity, unspecified whether sciatica present (Primary Dx); Cervical spondylosis; Left hip pain; Need for vaccination; Mixed hyperlipidemia; Type 2 diabetes mellitus without complication, with long-term current use of insulin (HCC); Prostate cancer (HCC) Start: 08-08-2022 End: 08-08-[address] Lobito Maldonado Work Phone: [facility] Work Phone: Start: 08-08-2022 End: 08-08-[address] Lobito Maldonado Work Phone: [facility] Start: 08-08-2022 End: 08-08-[address] Lobito Maldonado Work Phone: [facility] Start: 07-18-2022 Non-patient / Non-visit Dr. Lobito Maldonado Work Phone: [facility] Start: 07-17-2022 Non-patient / Non-visit Dr. Lobito Maldonado Work Phone: [facility] Start: 07-16-2022 Non-patient / Non-visit Dr. Lobito Maldonado Work Phone: [facility] Start: 07-15-2022 Non-patient / Non-visit Dr. Lobito Maldonado Work Phone: [facility] Start: 07-14-2022 Non-patient / Non-visit Dr. Lobito Maldonado Work Phone: [facility] Start: 07-13-2022 End: 07-18-2022 Evaluation and management of inpatient [facility] Lobito Maldonado [facility] Start: 07-13-2022 Non-patient / Non-visit Dr. Lobito Maldonado Work Phone: [facility] Start: 07-13-2022 Evaluation and management of inpatient Dr. Lobito Maldonado Work Phone: [facility] Surgical 3 Start: 07-13-[address] Ash Maldonado Work Phone: [facility] Work Phone: Start: 07-04-2022 End: 07-04-2022 Emergency department patient visit Dr. Lobito Maldonado Work Phone: [facility] Start: 07-04-2022 End: 07-04-[address] Lobito Maldonado Work Phone: [facility] Start: 06-29-2022 Refill Lobito pollack MD Work Phone: [facility] [place] Comment on above: Refill Request Start: 06-02-2022 Refill Lobito pollack MD Work Phone: [facility] [place] Comment on above: Refill Request Start: 05-31-2022 Telephone encounter Lobito de leon MD Work Phone: [facility] [place] Comment on above: Results Start: 05-23-2022 Telephone encounter Baninoska Bharat foote DO Work Phone: [facility] Comment on above: Results Start: 05-16-2022 End: 05-16-2022 Patient encounter procedure Lobito Maldonado MD Work Phone: [facility] [place] Comment on above: Type 2 diabetes nanda itus without complication, with long-term current use of insulin (HCC) (Primary Dx); Seasonal allergic rhinitis due to pollen; Mixed hyperlipidemia; 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 epilepticus, unspecified epilepsy type (HCC); Hypertension, essential; GERD without esophagitis; Vitamin D deficiency; Cervical spondylosis; Lower urinary tract symptoms (LUTS); 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; Posttraumatic stress disorder Start: 05-05-2022 Refill Lobito pollack MD Work Phone: [facility] [place] Comment on above: Refill Request Start: 04-15-2022 End: 04-15-2022 Patient encounter procedure FIRE MANAGERJocelynn Elliott NP Work Phone: [facility] Start: 04-08-2022 Refill Lobito pollack MD Work Phone: [facility] [place] Comment on above: Refill Request Start: 2022 End: 2022 Patient encounter procedure TORY Elliott NP Work Phone: [facility] Start: 03-25-2022 End: 03-25-2022 Patient encounter procedure TORY Elliott NP Work Phone: [facility] Start: 03-25-2022 End: 03-25-2022 Patient encounter procedure TORY Elliott FIRE MANAGER Work Phone: [facility] Start: 03-11-2022 Telephone encounter Isidoro MONTIEL Work Phone: Psychology Comment on above: Consult (Initial [facility] W Pt Outreach) Start: 03-10-2022 End: 03-10-2022 Office outpatient visit 40 minutes Lobito Maldonado MD Work Phone: [facility] [place] Comment on above: Posttraumatic stress disorder (Primary Dx); 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; Mixed hyperlipidemia; Type 2 diabetes mellitus without complication, with long-term current use of insulin (HCC) Start: 03-09-2022 Refill Souleymane Elliott APRN.MATERIALS PLANNER/PRODUCTION PLANNER, DNP Work Phone: [facility] Comment on above: Refill Request Start: 03-06-2022 End: 03-07-2022 Emergency department patient visit FIRE MANAGER-C Souleymane Elliott FIRE MANAGER Work Phone: [facility] Start: 03-04-2022 Non-patient / Non-visit FIRE MANAGER-C Souleymane Elliott FIRE MANAGER Work Phone: [facility] Start: 03-03-2022 Non-patient / Non-visit FIRE MANAGER-C Souleymane Elliott FIRE MANAGER Work Phone: [facility] Start: 03-02-2022 Non-patient / Non-visit FIRE MANAGER-C Souleymane Elliott FIRE MANAGER Work Phone: [facility] Start: 03-02-2022 Non-patient / Non-visit FIRE MANAGER-C Souleymane Elliott FIRE MANAGER Work Phone: [facility] Start: 03-01-2022 Telephone encounter Souleymane easton APRN.MATERIALS PLANNER/PRODUCTION PLANNER, DNP Work Phone: [facility] Comment on above: Patient Update Start: 03-01-2022 Non-patient / Non-visit FIRE MANAGER-C Souleymane Elliott FIRE MANAGER Work Phone: [facility] Start: 02-28-2022 Non-patient / Non-visit FIRE MANAGER-C Souleymane Elliott FIRE MANAGER Work Phone: [facility] Start: 02-27-2022 Non-patient / Non-visit FIRE MANAGER-C Souleymane Elliott FIRE MANAGER Work Phone: [facility] Start: 02-27-2022 End: 03-04-2022 Evaluation and management of inpatient FIRE MANAGER-C Souleymane Elliott FIRE MANAGER [facility] Phone: [facility] Start: 01-13-2022 Refill Souleymane Elliott PLANT ELECTRICAL ENGINEER.MATERIALS PLANNER/PRODUCTION PLANNER, DNP Work Phone: [facility] Comment on above: Refill Request Start: 01-03-2022 End: 01-03-2022 Patient encounter procedure FIRE MANAGER-C Souleymane Elliott FIRE MANAGER Work Phone: [facility] Start: 12-16-2021 Refill Souleymane Elliott PLANT ELECTRICAL ENGINEER.MATERIALS PLANNER/PRODUCTION PLANNER, DNP Work Phone: [facility] Comment on above: Refill Request Start: 12-10-2021 End: 12-11-2021 Emergency department [facility] Start: 12-09-2021 Non-patient / Non-visit FIRE MANAGER-C Souleymane Elliott FIRE MANAGER Work Phone: [facility] Start: 12-08-2021 Non-patient / Non-visit FIRE MANAGER-C Souleymane Elliott FIRE MANAGER Work Phone: [facility] Start: 12-08-2021 End: 12-09-2021 Evaluation and management of inpatient FIRE MANAGER-C Souleymane Elliott FIRE MANAGER Work Phone: [facility] Start: 04-11-2018 Patient encounter [facility] Start: 04-10-2018 Patient encounter [facility] Procedures Date Procedure Procedure Detail Performing Clinician Start: 02-12-2025 Adult depression scr eening assessment Lobito Maldonado MD Work Phone: Start: 07-18-2024 Visual field xm uni/ bi w/interp extended exam Kat Galindo OD Work Phone: Start: 02-05-2024 Radiologic exam ches t 2 views Alis Chua PLANT ELECTRICAL ENGINEER.MATERIALS PLANNER/PRODUCTION PLANNER Work Phone: Start: 02-05-2024 Adult depression scr eening assessment Lobito Maldonado MD Work Phone: Start: 01-16-2024 End: 01-16-2024 Visual field xm uni/bi w/interp extended exam Puja Pepper OD Work Phone: Start: 01-07-2024 Computed tomography of abdomen and pelvis with intravenous contrast Dr. Lobito Maldonado Work Phone: Start: 10-10-2023 Computed tomography of abdomen and pelvis with intravenous contrast Dr. Lobito Maldonado Work Phone: Start: 08-09-2023 Computed tomography of abdomen and pelvis with intravenous contrast Dr. Lobito Maldonado Work Phone: Start: 06-09-2023 INFLUENZA VACCINE, A GE 6 MO - 64 YR, QUADRIVALENT (AFLURIA, FLULAVAL, FLUZONE) Alis Older PLANT ELECTRICAL ENGINEER.MATERIALS PLANNER/PRODUCTION PLANNER Work Phone: Start: 06-05-2023 Radiologic exam ches t 2 views Lobito Maldonado MD Work Phone: Start: 05-03-2023 Computed tomography of abdomen and pelvis with intravenous contrast Dr. Lobito Maldonado Work Phone: Start: 04-30-2023 Diagnostic radiograp hy of abdomen Dr. Lobito Maldonado Work Phone: Start: 02-21-2023 Computerized ophthal marielena imaging optic nerve Freedom Delacruz MD Work Phone: Start: 02-06-2023 Gluc bld gluc mntr d ev cleared fda spec home use Lobito Maldonado MD Work Phone: Start: 01-22-2023 Computed tomography of abdomen and pelvis with intravenous contrast Dr. Lobito Maldonado Work Phone: Start: 12-15-2022 STREP A MOLECULAR (POC) Emmanuel Fritz MD Work Phone: Start: 12-14-2022 CT of abdomen and pe lvis without contrast Dr. Lobito Maldonado Work Phone: Start: 11-30-2022 Computed tomography of abdomen and pelvis with intravenous contrast Dr. Lobito Maldonado Work Phone: Start: 10-26-2022 Computed tomography of abdomen and pelvis with contrast Dr. Lobito Maldonado Work Phone: Start: 08-19-2022 Radex hip unilateral with pelvis 2-3 views Lobito Maldonado MD Work Phone: Start: 07-13-2022 Computed tomography of abdomen and pelvis with intravenous contrast Dr. Lobito Maldonado Work Phone: Start: 04-15-2022 Ultrasonography of abdomen FIRE MANAGER-C Souleymane De La Cruzrustam FIRE MANAGER Work Phone: Start: 04-15-2022 Ultrasound elastography FIRE MANAGER-C Souleymane Elliott FIRE MANAGER Work Phone: Start: 2022 Computed tomography of abdomen and pelvis with contrast FIRE MANAGER-C Souleymane De La Cruzrustam FIRE MANAGER Work Phone: Start: 03-10-2022 Adult depression scr eening assessment Lobito Maldonado MD Work Phone: Start: 03-03-2022 Computed tomography of abdomen and pelvis with contrast FIRE MANAGER-C Souleymane De La Cruzrustam FIRE MANAGER Work Phone: Start: 02-27-2022 Computed tomography of abdomen and pelvis with intravenous contrast FIRE MANAGER-C Souleymane Elliott FIRE MANAGER Work Phone: Start: 12-08-2021 Computed tomography of abdomen and pelvis with intravenous contrast FIRE MANAGER-C Souleymane Elliott FIRE MANAGER Work Phone: Start: 12-08-2021 Plain chest X-ray FIRE MANAGER-C Souleymane Elliott FIRE MANAGER Work Phone: Start: 12-07-2021 End: 12-07-2021 Viral antigen assay FIRE MANAGER-C Souleymane Elliott FIRE MANAGER Work Phone: Start: 06-17-2019 Colonoscopy Souleymane Jono easton PLANT ELECTRICAL ENGINEER.MATERIALS PLANNER/PRODUCTION PLANNER, DNP Work Phone: Start: 06-08-2017 End: 06-08-2017 [...] Des Corrales MD Start: 02-26-2014 End: 02-26-2014 LIZ Corrales MD Start: 02-26-2014 End: 06-08-2017 Follow [...] 03-26-2013 Adult depression scr eening assessment Souleymane Elliott APRN.MATERIALS PLANNER/PRODUCTION PLANNER, DNP Work Phone: Viral antigen assay FIRE MANAGERJocelynn Elliott FIRE MANAGER Work Phone: Plan of Treatment Date Care Activity Detail Author Start: 03-26-2031 [facility] Start: 02-04-2029 Prostate specific antigen measurement Prostate Cancer Screening Discussion [facility] Start: 05-19-2027 PROSTATE CANCER SCREENING DISCUSSION PROSTATE CANCER SCREENING DISCUSSION [facility] Start: 05-19-2027 Prostate specific antigen measurement Prostate Cancer Screening Discussion [facility] Start: 02-12-2026 Annual PCP Team Chronic Disease Visit Annual PCP Team Chronic Disease Visit [facility] Start: 02-12-2026 Depression Screening Depression Screening [facility] Start: 02-12-2026 Hepatitis B screening Urine Albumin:Creatinine Ratio [facility] Start: 02-12-2026 Hepatitis B surface antibody level LDL Cholesterol [facility] Start: 02-12-2026 Prostate specific antigen measurement Prostate Cancer Screening Discussion [facility] Start: 01-16-2026 Glaucoma screening Dilated Retinal Exam [facility] Start: 11-17-2025 PROSTATE CANCER SCREENING DISCUSSION PROSTATE CANCER SCREENING DISCUSSION [facility] Start: 10-24-2025 Annual PCP Team Chronic Disease Visit Annual PCP Team Chronic Disease Visit [facility] Start: 10-24-2025 BP Controlled (<130/80) BP Controlled (<130/80) [facility] Start: 10-24-2025 Diabetic foot examination Diabetic Foot Exam [facility] Start: 09-29-2025 End: 09-29-2025 Patient encounter procedure 09/29/2025 2:00 PM EST Office Visit Cardiology [address] [place] [address] Hermes Monroe MD [address], [address] [place], [place] [id number] Hypertension, essential [I10]; 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 [I25.10] Cardiology Comment on above: Hypertension, essential [I10]; 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 ( needs 30 min. appt ) Ophthalmology Comment on above: 6 MTH F/U for 24-2 and IOP check. ( need s 30 min. appt ) Start: 07-03-2025 Annual PCP Team Chronic Disease Visit Annual PCP Team Chronic Disease Visit [facility] Start: 07-03-2025 BP Controlled (<130/80) BP Controlled (<130/80) [facility] Start: 05-15-2025 Hemoglobin A1c measurement [facility]C [facility] Start: 02-06-2025 End: 02-06-2025 Patient encounter procedure 02/06/2025 1:00 PM EDT Office Visit [facility] [place] [address] [place] [address] Lobito Maldonado MD [address] [place] [address] Medicare Wellness w/3 month follow-up [facility] [place] Comment on above: Medicare Wellness w/3 month follow-up Start: 02-04-2025 Annual PCP Team Chronic Disease Visit Annual PCP Team Chronic Disease Visit [facility] Start: 02-04-2025 BP Controlled (<130/80) BP Controlled (<130/80) [facility] Start: 02-04-2025 Depression Screening Depression Screening [facility] Start: 02-04-2025 Hepatitis B screening Urine Albumin:Creatinine Ratio [facility] Start: 02-04-2025 Hepatitis B surface antibody level LDL Cholesterol [facility] Start: 02-04-2025 Shingrix Vaccine (1 of 2) Shingrix Vaccine (1 of 2) [facility] Comment on above: Postponed from 2015 (Declined at t his time) Start: 01-22-2025 End: 04-23-2025 Comprehensive metabolic 2000 panel - Serum or Plasma COMPREHENSIVE METABOLIC PANEL Lab Routine Mixed hyperlipidemia Expected: 01/22/2025, Expires: 04/23/2025 [facility] Work Phone: Comment on above: Expected: 01/22/2025, Expires: Start: 01-22-2025 End: 04-23-2025 Hemoglobin A1c in Blood HEMOGLOBIN A1C Lab Routine Type 2 diabetes mellitus without complication, with long-term current use of insulin (HCC) Expected: 01/22/2025, Expires: 04/23/2025 [facility] Comment on above: Expected: 01/22/2025, Expires: Start: 01-22-2025 End: 04-23-2025 levETIRAcetam [Mass/volume] in Serum or Plasma LEVETIRACETAM Lab Routine Nonintractable generalized 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 (HCC) Expected: 01/22/2025, Expires: 04/23/2025 [facility] Comment on above: Expected: 01/22/2025, Expires: Start: 01-22-2025 End: 04-23-2025 Lipid 1996 panel - Serum or Plasma LIPID PANEL BASIC Lab Routine Mixed hyperlipidemia Expected: 01/22/2025, Expires: 04/23/2025 [facility] Comment on above: Expected: 01/22/2025, Expires: Start: 01-22-2025 End: 04-23-2025 Magnesium [Mass/volume] in Serum or Plasma MAGNESIUM Lab Routine Hypomagnesemia Expected: 01/22/2025, Expires: 04/23/2025 [facility] Comment on above: Expected: 01/22/2025, Expires: Start: 01-22-2025 End: 04-23-2025 Microalbumin/Creatinine [Mass Ratio] in Urine ALBUMIN/CREATININE RATIO, URINE Lab Routine Type 2 diabetes mellitus without complication, with long-term current use of insulin ([facility]) Expected: 01/22/2025, Expires: 04/23/2025 [facility] Comment on above: Expected: 01/22/2025, Expires: Start: 01-22-2025 End: 04-23-2025 Prostate specific Ag [Mass/volume] in Serum or Plasma PROSTATE-SPECIFIC ANTIGEN DIAGNOSTIC Lab Routine Prostate cancer ([facility]) Expected: 01/22/2025, Expires: 04/23/2025 [facility] Comment on above: Expected: 01/22/2025, Expires: Start: 01-20-2025 Hemoglobin A1c measurement HbA1C [facility] Start: 01-16-2025 End: 01-16-2025 Patient encounter procedure 01/16/2025 12:30 PM EDT Office Visit [facility] [address] [place] [address] Kat Galindo, OD [address] [place] [address] 6 MO OV for complete with dilatio,OCT nerve and 24-2 OS Ophthalmology Comment on above: 6 MO OV for complete with dilatio,OCT ne rve and 24-2 OS Start: 01-15-2025 Glaucoma screening Dilated Retinal Exam [facility] Start: 11-28-2024 Covid-19 Vaccine ( season) Covid-19 Vaccine () [facility] Start: 10-24-2024 Annual PCP Team Chronic Disease Visit Annual PCP Team Chronic Disease Visit [facility] Start: 10-24-2024 BP Controlled (<130/80) BP Controlled (<130/80) [facility] Start: 10-24-2024 Diabetic foot examination Diabetic Foot Exam [facility] Start: 10-24-2024 End: 10-24-2024 Patient encounter procedure 10/24/2024 2:00 PM EST Office Visit [facility] [place] [address] [place] [address] Lobito Maldonado MD [address] [place] [address] 3 month follow-up [facility] [place] Comment on above: 3 month follow-up Start: 10-23-2024 End: 10-23-2024 Patient encounter procedure 10/23/2024 10:00 AM EST Office Visit [facility] [place] [address] [place] [address] Lobito Maldonado MD [address] [place] [address] 3 month follow-up [facility] [place] Comment on above: 3 month follow-up Start: 09-30-2024 End: 09-30-2024 Patient encounter procedure 09/30/2024 2:00 PM EST Office Visit [facility] [place] [address] [place] [address] Lobito Maldonado MD [address] [place] [address] 3 month follow-up [facility] [place] Comment on above: 3 month follow-up Start: 07-18-2024 End: 07-18-2024 Patient encounter procedure 07/18/2024 1:00 PM EDT Office Visit [facility] [address] [place] [address] Kat Galindo, OD [address] [place] [address] 6 MTH F/U Glaucoma IOP check and possible testing Ophthalmology Comment on above: 6 MTH F/U Glaucoma IOP check and possibl e testing Start: 07-03-2024 End: 10-02-2024 CBC panel - Blood by Automated count COMPLETE BLOOD COUNT Lab Routine Hypertension, essential Expected: 07/03/2024, Expires: 10/02/2024 [facility] Comment on above: Expected: 07/03/2024, Expires: Start: 07-03-2024 End: 10-02-2024 Comprehensive metabolic 2000 panel - Serum or Plasma COMPREHENSIVE METABOLIC PANEL Lab Routine 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) Expected: 07/03/2024, Expires: 10/02/2024 [facility] Comment on above: Expected: 07/03/2024, Expires: Start: 07-03-2024 End: 10-02-2024 Hemoglobin A1c in Blood HEMOGLOBIN A1C Lab Routine 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) Expected: 07/03/2024, Expires: 10/02/2024 [facility] Comment on above: Expected: 07/03/2024, Expires: Start: 06-21-2024 End: 06-21-2024 Patient encounter procedure 06/21/2024 2:40 PM EDT Office Visit Internal Medicine [place] [address] [facility] [place] [address] Lobito Maldonado MD [address] [place] [address] f/u [facility] [place] Comment on above: f/u Start: 06-17-2024 Colonoscopy COLONOSCOPY [facility] Start: 06-17-2024 COLORECTAL CANCER SCREENING COLORECTAL CANCER SCREENING [facility] Start: 06-17-2024 Screening for malignant neoplasm of colon [facility] Start: 06-12-2024 End: 06-12-2024 Patient encounter procedure 06/12/2024 3:20 PM EDT Office Visit [facility] [place] [address] [facility] [place] [address] Lobito Maldonado MD [address] [place] [address] 4 mo f/u [facility] [place] Comment on above: 4 mo f/u Start: 06-12-2024 End: 06-12-2024 Patient encounter procedure 06/12/2024 12:20 PM EDT Office Visit Internal Medicine [place] [address] [facility] [place] [address] Alis Chua, PLANT ELECTRICAL ENGINEER.MATERIALS PLANNER/PRODUCTION PLANNER [address] [facility] [place] [address] 4 mo f/u [facility] [place] Comment on above: 4 mo f/u Start: 06-09-2024 Annual PCP Team Chronic Disease Visit Annual PCP Team Chronic Disease Visit [facility] Start: 05-26-2024 Covid-19 Vaccine ( season) Covid-19 Vaccine () [facility] Start: 05-26-2024 Influenza vaccination Influenza Vaccine (#1) [facility] Start: 05-19-2024 3 comp foot exam completed DIABETIC FOOT EXAM [facility] Start: 05-07-2024 Hemoglobin A1c measurement HbA1C [facility] Start: 05-04-2024 ANNUAL PCP TEAM CHRONIC DISEASE VISIT ANNUAL PCP TEAM CHRONIC DISEASE VISIT [facility] Start: 05-04-2024 BP CONTROLLED (<130/80) BP CONTROLLED (<130/80) [facility] Start: 05-04-2024 Hepatitis B screening URINE ALBUMIN:CREATININE RATIO [facility] Start: 04-29-2024 End: 04-29-2024 Nursing evaluation of patient and report 04/29/2024 1:15 PM EDT Nurse Visit Family Medicine [place] [address] [place] [address] Nurse, Ms [address] [place] [address] 3rd dose Hep B Family [facility] [place] Comment on above: 3rd dose Hep B Start: 04-23-2024 Hepatitis B Vaccine (3 of 3 - 19+ 3-dose series) Hepatitis B Vaccine (3 of 3 - 19+ 3-dose series) [facility] Start: 02-23-2024 End: 02-23-2024 Patient encounter procedure 02/23/2024 3:30 PM EDT Office Visit Cardiology [address] [place] [address] Tachycardia [R00.0]; Shortness of breath [R06.02] Cardiology Comment on above: Tachycardia [R00.0]; Shortness of breath [R06.02] Start: 02-23-2024 End: 02-23-2024 Patient encounter procedure 02/23/2024 11:20 AM EDT Office Visit Internal Medicine [place] [address] [facility] [place] [address] Alis Chua, PLANT ELECTRICAL ENGINEER.MATERIALS PLANNER/PRODUCTION PLANNER [address] [place], [place] [address] medicare wellness/follow up [facility] [place] Comment on above: medicare wellness/follow up Start: 02-22-2024 Glaucoma screening Dilated Retinal Exam [facility] Start: 02-22-2024 Hepatitis C antibody, confirmatory test DILATED RETINAL EXAM [facility] Start: 02-08-2024 End: 02-08-2024 Patient encounter procedure 02/08/2024 3:00 PM EDT Office Visit Podiatry [address] [place], [place] [id number] Danilo Benitez [address] [place] [id number] Type 2 diabetes mellitus without complication, with long-term current use of insulin (HCC) [E11.9, Z79.4]; Dermatophytosis of nail [B35.1] Podiatry Comment on above: Type 2 diabetes mellitus without complic ation, with long-term current use of insulin (HCC) [E11.9, Z79.4]; Dermatophytosis of nail [B35.1] Start: 02-07-2024 ANNUAL PCP TEAM CHRONIC DISEASE VISIT ANNUAL PCP TEAM CHRONIC DISEASE VISIT [facility] Start: 02-05-2024 End: 05-06-2024 Thyrotropin [Units/volume] in Serum or Plasma [facility] [facility] Comment on above: Expected: 02/05/2024, Expires: Start: 01-26-2024 Hepatitis B surface antibody level LDL CHOLESTEROL [facility] Start: 01-24-2024 End: 01-24-2024 Patient encounter procedure 01/24/2024 4:00 PM EDT Office Visit Internal Medicine [place] [address] [facility] [place], [place] [id number] Lobito Maldonado MD [address] [facility] [place], [place] [id number] hospital follow up Internal Medicine [place] Comment on above: hospital follow up Start: 01-23-2024 [facility]oglobin A[facility]c [facility] Start: 01-08-2024 Patient discharge [facility] Start: 01-07-2024 Following clinical pathway protocol [facility] Start: 01-07-2024 Ambulation without limitation [facility] Start: 01-07-2024 Assessment of risk of venous thromboembolism [facility] Start: 01-07-2024 Care regimes management [facility] Start: 01-07-2024 Insertion of catheter into peripheral vein [facility] Start: 01-07-2024 Notification of physician [facility] Start: 01-07-2024 Providing care according to standard [facility] Start: 01-07-2024 [facility] Start: 01-07-2024 Admission procedure [facility] Start: 01-07-2024 Hospital admission, emergency, from emergency room, medical nature [facility] Start: 01-07-2024 Triacylglycerol lipase measurement [facility] Start: 12-16-2023 BP CONTROLLED (<130/80) BP CONTROLLED (<130/80) [facility] Start: 12-10-2023 ANNUAL PCP TEAM CHRONIC DISEASE VISIT ANNUAL PCP TEAM CHRONIC DISEASE VISIT [facility] Start: 12-10-2023 BP CONTROLLED (<130/80) BP CONTROLLED (<130/80) [facility] Start: 11-21-2023 Hepatitis B Vaccine (2 of 3 - 19+ 3-dose series) Hepatitis B Vaccine (2 of 3 - 19+ 3-dose series) [facility] Start: 11-20-2023 [facility] Start: 11-07-2023 ANNUAL PCP TEAM CHRONIC DISEASE VISIT ANNUAL PCP TEAM CHRONIC DISEASE VISIT [facility] Start: 11-07-2023 [facility] Start: 11-04-2023 Hemoglobin A1c/Hemoglobin.total in Blood HBA1C [facility] Start: 10-10-2023 [facility] Start: 10-10-2023 [facility] Start: 09-25-2023 Behavioral Health Screening Behavioral Health Screening [facility] Start: 08-19-2023 ANNUAL PCP TEAM CHRONIC DISEASE VISIT ANNUAL PCP TEAM CHRONIC DISEASE VISIT [facility] Start: 08-19-2023 COVID-19 VACCINE (5 - Booster) COVID-19 VACCINE (5 - Booster) [facility] Comment on above: Postponed from 05/13/2022 (Declined at t his time) Start: 08-09-2023 [facility] Start: 05-26-2023 Covid-19 Vaccine ( season) Covid-19 Vaccine ( season) [facility] Start: 05-26-2023 Influenza vaccination INFLUENZA (#1) [facility] Start: 05-19-2023 Hepatitis B screening URINE ALBUMIN:CREATININE RATIO [facility] Start: 05-19-2023 Hepatitis B surface antibody level LDL CHOLESTEROL [facility] Start: 05-16-2023 ANNUAL PCP TEAM CHRONIC DISEASE VISIT ANNUAL PCP TEAM CHRONIC DISEASE VISIT [facility] Start: 05-16-2023 BP CONTROLLED (<130/80) BP CONTROLLED (<130/80) [facility] Start: 04-30-2023 Diagnostic radiography of abdomen Acute Abdomen Inc Chest [facility] Start: 04-30-2023 XR Chest and Abdomen Views [facility] Start: 04-27-2023 Hemoglobin A1c/Hemoglobin.total in Blood HBA1C [facility] Start: 03-10-2023 3 comp foot exam completed [facility]ETIC FOOT [facility] Start: 03-10-2023 Adult depression screening assessment DEPRESSION SCREENING [facility] Start: 03-10-2023 ANNUAL PCP TEAM CHRONIC DISEASE VISIT ANNUAL PCP TEAM CHRONIC DISEASE VISIT [facility] Start: 02-16-2023 End: 04-18-2023 CBC panel - Blood by Automated count CBC Lab Routine Type 2 diabetes mellitus without complication, with long-term current use of insulin (HCC) Expected: 02/16/2023, Expires: 04/18/2023 [facility] Work Phone: Comment on above: Expected: 02/16/2023, Expires: Start: 02-16-2023 End: 04-18-2023 Comprehensive metabolic 2000 panel - Serum or Plasma COMP METABOLIC PANEL Lab Routine Type 2 diabetes mellitus without complication, with long-term current use of insulin (HCC) Expected: 02/16/2023, Expires: 04/18/2023 [facility] Work Phone: Comment on above: Expected: 02/16/2023, Expires: 3 Start: 02-16-2023 End: 04-18-2023 Hemoglobin A1c in Blood HGB A1C Lab Routine Type 2 diabetes mellitus without complication, with long-term current use of insulin (HCC) Expected: 02/16/2023, Expires: 04/18/2023 [facility] Work Phone: Comment on above: Expected: 02/16/2023, Expires: 3 Start: 02-16-2023 End: 04-18-2023 Lipid 1996 panel - Serum or Plasma LIPID PANEL BASIC Lab Routine Type 2 diabetes mellitus without complication, with long-term current use of insulin (HCC) Expected: 02/16/2023, Expires: 04/18/2023 [facility] Work Phone: Comment on above: Expected: 02/16/2023, Expires: 3 Start: 12-02-2022 Patient discharge [facility] Start: 11-29-2022 Following clinical pathway protocol [facility] Start: 11-29-2022 Assessment of risk of venous thromboembolism [facility] Start: 11-29-2022 Care regimes management [facility] Start: 11-29-2022 Inhalation therapy procedure [facility] Start: 11-29-2022 Insertion of catheter into peripheral vein [facility] Start: 11-29-2022 Introduction of urinary catheter [facility] Start: 11-29-2022 Measuring intake and output [facility] Start: 11-29-2022 Oxygen therapy [facility] Start: 11-29-2022 Patient referral to dietitian [facility] Start: 11-29-2022 Providing care according to standard [facility] Start: 11-29-2022 Provision of activity privileges [facility] Start: 11-29-2022 Referral to gastroenterology service [facility] Start: 11-29-2022 Referral to service [facility] Start: 11-29-2022 [facility] Start: 11-29-2022 Verification routine [facility] Start: 11-29-2022 Admission procedure [facility] Start: 11-19-2022 Hemoglobin A1c/Hemoglobin.total in Blood HBA1C [facility] Start: 10-27-2022 Patient discharge [facility] Start: 10-26-2022 Admission procedure [facility] Start: 10-26-2022 Following clinical pathway protocol [facility] Start: 10-26-2022 Assessment of risk of venous thromboembolism [facility] Start: 10-26-2022 Catheterization of vein [facility] Start: 10-26-2022 Insertion of catheter into peripheral vein [facility] Start: 10-26-2022 Providing care according to standard [facility] Start: 10-26-2022 Provision of activity privileges [facility] Start: 10-26-2022 [facility] Start: 10-26-2022 Admission procedure [facility] Start: 10-05-2022 Hepatitis C antibody, confirmatory test DILATED RETINAL EXAM [facility] Start: 09-25-2022 DEPRESSION ASSESSMENT DEPRESSION ASSESSMENT [facility] Start: 09-09-2022 [facility] Work Phone: Start: 09-08-2022 Patient discharge [facility] Start: 09-06-2022 [facility] Start: 09-06-2022 Care regimes management [facility] Start: 09-06-2022 Notification of physician [facility] Start: 09-06-2022 Catheterization of vein [facility] Start: 09-06-2022 Medication education [facility] Start: 09-06-2022 Application of intermittent pneumatic compression device [facility] Start: 09-06-2022 Following clinical pathway protocol [facility] Start: 09-06-2022 Ambulation without limitation [facility] Start: 09-06-2022 Assessment of risk of venous thromboembolism [facility] Start: 09-06-2022 Incentive spirometry [facility] Start: 09-06-2022 Insertion of catheter into peripheral vein [facility] Start: 09-06-2022 Measuring intake and output [facility] Start: 09-06-2022 Providing care according to standard [facility] Start: 09-06-2022 [facility] Start: 09-06-2022 Admission procedure [facility] Start: 09-06-2022 Verification routine [facility] Work Phone: Start: 09-06-2022 Patient referral to dietitian [facility] Start: 09-06-2022 [facility] Start: 07-18-2022 Patient discharge [facility] Start: 07-14-2022 Blood chemistry [facility] Work Phone: Start: 07-14-2022 Electrocardiographic procedure [facility] Work Phone: Start: 07-13-2022 Admission procedure [facility] Start: 07-13-2022 Application of intermittent pneumatic compression device [facility] Start: 07-13-2022 Following clinical pathway protocol [facility] Start: 07-13-2022 Ambulation without limitation [facility] Start: 07-13-2022 Assessment of risk of venous thromboembolism [facility] Start: 07-13-2022 Care regimes management [facility] Start: 07-13-2022 Insertion of catheter into peripheral vein [facility] Start: 07-13-2022 Notification of physician [facility] Start: 07-13-2022 Oxygen therapy [facility] Work Phone: Start: 07-13-2022 Providing care according to standard [facility] Start: 07-13-2022 [facility] Start: 07-13-2022 Electrocardiographic procedure [facility] Work Phone: Start: 07-13-2022 Verification routine [facility] Work Phone: Start: 07-13-2022 Admission procedure [facility] Start: 05-26-2022 Influenza vaccination [facility] Start: 05-21-2022 ANNUAL PCP TEAM CHRONIC DISEASE VISIT ANNUAL PCP TEAM CHRONIC DISEASE VISIT [facility] Start: 05-10-2022 End: 07-10-2022 ALBUMIN/CREAT RATIO RND UR ALBUMIN/CREAT RATIO RND UR Lab Routine Type 2 diabetes mellitus without complication, with long-term current use of insulin (HCC) Expected: 05/10/2022, Expires: 07/10/2022 [facility] Work Phone: Comment on above: Expected: 05/10/2022, Expires: Start: 05-10-2022 End: 07-10-2022 CBC panel - Blood by Automated count CBC Lab Routine 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 Expected: 05/10/2022, Expires: 07/10/2022 [facility] Work Phone: Comment on above: Expected: 05/10/2022, Expires: 2 Start: 05-10-2022 End: 07-10-2022 Comprehensive metabolic 2000 panel - Serum or Plasma COMP METABOLIC PANEL Lab Routine Type 2 diabetes mellitus without complication, with long-term current use of insulin (HCC) Expected: 05/10/2022, Expires: 07/10/2022 [facility] Work Phone: Comment on above: Expected: 05/10/2022, Expires: 2 Start: 05-10-2022 End: 07-10-2022 Hemoglobin A1c in Blood HGB A1C Lab Routine Type 2 diabetes mellitus without complication, with long-term current use of insulin (HCC) Expected: 05/10/2022, Expires: 07/10/2022 [facility] Work Phone: Comment on above: Expected: 05/10/2022, Expires: 2 Start: 05-10-2022 End: 07-10-2022 Lipid 1996 panel - Serum or Plasma LIPID PANEL BASIC Lab Routine Type 2 diabetes mellitus without complication, with long-term current use of insulin (HCC) Expected: 05/10/2022, Expires: 07/10/2022 [facility] Work Phone: Comment on above: Expected: 05/10/2022, Expires: 2 Start: 03-06-2022 Emergency department visit limited/minor prob EMERGENCY DEPT VISIT [facility] Work Phone: Start: 03-06-2022 Iv infusion hydration initial 31 min-1 hour HYDRATION IV INFUSION INIT [facility] Work Phone: Start: 03-04-2022 Patient discharge [facility] Work Phone: Start: 03-02-2022 Referral to gastroenterology service [facility] Work Phone: Start: 02-27-2022 Following clinical pathway protocol [facility] Work Phone: Start: 02-27-2022 Ambulation without limitation [facility] Work Phone: Start: 02-27-2022 Assessment of risk of venous thromboembolism [facility] Work Phone: Start: 02-27-2022 Care regimes management [facility] Work Phone: Start: 02-27-2022 Incentive spirometry [facility] Work Phone: Start: 02-27-2022 Inhalation therapy procedure [facility] Work Phone: Start: 02-27-2022 Insertion of catheter into peripheral vein [facility] Work Phone: Start: 02-27-2022 Measuring intake and output [facility] Work Phone: Start: 02-27-2022 Notification of physician [facility] Work Phone: Start: 02-27-2022 Providing care according to standard [facility] Work Phone: Start: 02-27-2022 [facility] Work Phone: Start: 02-27-2022 Admission procedure [facility] Work Phone: Start: 02-27-2022 Patient referral to dietitian [facility] Work Phone: Start: 12-17-2021 End: 02-16-2022 Magnesium [Mass/volume] in Serum or Plasma MAGNESIUM BLD Lab Routine 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 epilepticus, unspecified epilepsy type (HCC) Expected: 12/17/2021, Expires: 02/16/2022 [facility] Work Phone: Comment on above: Expected: 12/17/2021, Expires: Start: 12-09-2021 Patient discharge [facility] Work Phone: Start: 12-08-2021 Care regimes management [facility] Work Phone: Start: 12-08-2021 Notification of physician [facility] Work Phone: Start: 12-08-2021 [facility] Work Phone: Start: 12-08-2021 Suicide precautions [facility] Work Phone: Start: 12-08-2021 Following clinical pathway protocol [facility] Work Phone: Start: 12-08-2021 Ambulation without limitation [facility] Work Phone: Start: 12-08-2021 Assessment of risk of venous thromboembolism [facility] Work Phone: Start: 12-08-2021 Insertion of catheter into peripheral vein [facility] Work Phone: Start: 12-08-2021 Providing care according to standard [facility] Work Phone: Start: 12-08-2021 [facility] Work Phone: Start: 12-08-2021 Admission procedure [facility] Work Phone: Start: 12-08-2021 Consultation [facility] Work Phone: Start: 12-08-2021 Patient referral to dietitian [facility] Work Phone: Start: 12-07-2021 Referral to service [facility] Work Phone: Start: 12-07-2021 End: 12-07-2021 Suicide precautions [facility] Work Phone: Start: 12-02-2021 Hepatitis B screening URINE ALBUMIN:CREATININE RATIO [facility] Start: 12-01-2021 3 comp foot exam completed DIABETIC FOOT EXAM [facility] Start: 12-01-2021 BP CONTROLLED (<130/80) BP CONTROLLED (<130/80) [facility] Start: 11-17-2021 Hepatitis B surface antibody level LDL CHOLESTEROL [facility] Start: 10-03-2021 COVID-19 VACCINE (3 - Booster) COVID-19 VACCINE (3 - Booster) [facility] Start: 09-25-2021 DEPRESSION ASSESSMENT DEPRESSION ASSESSMENT [facility] Start: 06-28-2021 COVID-19 VACCINE (3 - Booster) COVID-19 VACCINE (3 - Booster) [facility] Start: 05-26-2021 Influenza vaccination INFLUENZA (#1) [facility] Start: 05-17-2021 Hemoglobin A1c/Hemoglobin.total in Blood HBA1C [facility] Start: 12-05-2017 End: 12-05-2017 [facility]ointment [facility] Work Phone: Start: 06-08-2017 End: 06-08-2017 Follow Up Appt 6 months Follow Up Appt 6 months [facility] Work Phone: Start: 06-08-2017 End: 06-08-2017 MMM MMM [facility] Work Phone: Start: 07-05-2016 End: 07-05-2016 LITIGATION DOCKET MANAGER LITIGATION DOCKET MANAGER [facility] Work Phone: Start: 07-05-2016 End: 07-05-2016 Follow Up Appt 1 year Follow Up Appt 1 year [facility] Work Phone: Start: 06-30-2015 End: 06-30-2015 LITIGATION DOCKET MANAGER LITIGATION DOCKET MANAGER [facility] Work Phone: Start: 06-30-2015 End: 06-30-2015 Follow Up Appt 1 year Follow Up Appt 1 year [facility] Work Phone: Start: 2015 SHINGRIX VACCINE (1 of 2) SHINGRIX VACCINE (1 of 2) [facility] Start: 03-26-2014 Adult depression screening assessment DEPRESSION SCREENING [facility] Start: 02-26-2014 End: 03-19-2014 *BMP *BMP [facility] Work Phone: Start: 02-26-2014 End: 02-26-2014 LITIGATION DOCKET MANAGER LITIGATION DOCKET MANAGER [facility] Work Phone: Start: 02-26-2014 End: 02-28-2014 Echocardiography Echocardiogram (complete) [facility] Work Phone: Start: 02-26-2014 End: 06-08-2017 Follow Up Appt 6 months Follow Up Appt 6 months [facility] Work Phone: Start: 02-26-2014 End: 02-26-2014 Follow Up Appt Other Follow Up Appt Other [facility] Work Phone: Start: 02-26-2014 End: 02-26-2014 Magnesium mass conc *Magnesium [facility] Work Phone: Start: 02-26-2014 End: 06-08-2017 MMM MMM [facility] Work Phone: Start: 02-26-2014 End: 02-28-2014 T4 mass conc *T4 (Total) [facility] Work Phone: Start: 02-26-2014 End: 02-28-2014 Thyrotropin Qn *TSH [facility] Work Phone: Start: 2010 COLOGUARD (FIT-DNA) COLOGUARD (FIT-DNA) [facility] Start: [address] COLONOGRAPHY [facility] Start: 2010 FECAL OCCULT BLOOD FECAL OCCULT BLOOD [facility] Start: 2010 Screening for malignant neoplasm of colon [facility] Start: 2010 SIGMOIDOSCOPY SIGMOIDOSCOPY [facility] Start: 1984 HEPATITIS B (1 of 3 - Risk 3-dose series) HEPATITIS B (1 of 3 - Risk 3-dose series) [facility] Start: 1984 SHINGRIX VACCINE (1 of 2) SHINGRIX VACCINE (1 of 2) [facility] Start: 1984 Urine microalbumin profile DTAP,TDAP,TD (1 - Tdap) [facility] Start: 1981 ONE PNEUMOVAX PRIOR TO AGE 65 ONE PNEUMOVAX PRIOR TO AGE 65 [facility] Start: 1971 PNEUMOCOCCAL (1 - PCV) PNEUMOCOCCAL (1 - PCV) [facility] Start: 1965 HEPATITIS B (1 of 3 - 3-dose series) HEPATITIS B (1 of 3 - 3-dose series) [facility] Start: 1965 Hepatitis B Vaccine (1 of 3 - 3-dose series) Hepatitis B Vaccine (1 of 3 - 3-dose series) [facility] Anion gap measurement [facility] Work Phone: Blood ammonia measurement [facility] BUN/Creatinine ratio [facility] Work Phone: Calcium [Mass/volume ] in Serum or Plasma [facility] Work Phone: Carbon dioxide, tota l [Moles/volume] in Serum or Plasma [facility] Work Phone: Chloride [Moles/volu me] in Serum or Plasma [facility] Work Phone: COVID & INFLUENZA A/ B & RSV PCR, ROUTINE COVID & INFLUENZA A/B & RSV PCR, ROUTINE Microbiology Routine Bronchitis Ordered: 07/03/2024 [facility] Work Phone: Comment on above: Ordered: 07/03/2024 Creatinine [Moles/vo lume] in Serum or Plasma [facility] Work Phone: CT Abdomen and Pelvi s W contrast IV [facility] Work Phone: ECG COMPLETE ECG COMPLETE ECG Routine Tachycardia Ordered: 02/05/2024 [facility] Work Phone: Comment on above: Ordered: 02/05/2024 End: 02-04-2025 Echocardiography ECHO Cardiology Routine Tachycardia Shortness of breath 1 Occurrences starting 02/05/2024 until 02/04/2025 [facility] Comment on above: 1 Occurrences starting 02/05/2024 until 02/04/2025 Glucose [Mass/volume ] in Serum or Plasma [facility] Work Phone: Glucose [Mass/volume ] in Serum or Plasma GLUCOSE, BLOOD (POC) Lab Routine Type 2 diabetes mellitus without complication, with long-term current use of insulin (HCC) Ordered: 02/06/2023 [facility] Work Phone: Comment on above: Ordered: 02/06/2023 Hematocrit [Volume F raction] of Blood [facility] Work Phone: Hemoglobin [Mass/vol ume] in Blood [facility] Work Phone: Leukocytes [#/volume ] in Blood [facility] Work Phone: Mean corpuscular hem oglobin concentration determination [facility] Work Phone: Mean corpuscular hem oglobin determination [facility] Work Phone: Measurement of renal function [facility] Work Phone: Measurement of substance [facility] Neutrophil count [facility] Work Phone: Neutrophil percent differential count [facility] Work Phone: Patient Education [facility] Work Phone: Patient referral [facility] Work Phone: Platelets [#/volume] in Blood [facility] Work Phone: Potassium [Moles/vol ume] in Serum or Plasma [facility] Work Phone: End: 05-19-2024 PVR ANK PRESS [facility] PVR ANK PRESS [facility] Routine Type 2 diabetes mellitus without complication, with long-term current use of insulin (HCC) Diminished pulses in lower extremity 1 Occurrences starting 05/19/2023 until 05/19/2024 [facility] Work Phone: Comment on above: 1 Occurrences starting 05/19/2023 until 05/19/2024 Red blood cell count [facility] Work Phone: Red cell distributio n width determination [facility] Work Phone: SARS-CoV-2 (COVID-19 ) RNA [Presence] in Respiratory specimen by JOSE with probe detection 2019 CORONAVIRUS Microbiology Routine Sore throat URI, acute Ordered: 12/15/2022 [facility] Work Phone: Comment on above: Ordered: 12/15/2022 Sodium [Moles/volume ] in Serum or Plasma [facility] Work Phone: Ultrasound elastography [facility] Work Phone: Urea nitrogen [Mass/ volume] in Serum or Plasma [facility] Work Phone: Abdomen limited [facility] Work Phone: End: 03-06-2025 XR Chest PA and Lateral XR CHEST 2V FRONTAL/LAT Radiology Routine Shortness of breath 1 Occurrences starting 02/05/2024 until 03/06/2025 [facility] Comment on above: 1 Occurrences starting 02/05/2024 until 03/06/2025 XR Chest PA and Lateral XR CHEST 2V FRONTAL/LAT Radiology Routine Shortness of breath 02/05/2024 2:56 PM EDT [facility] End: 08-02-2025 XR Chest PA and Lateral XR CHEST 2V FRONTAL/LAT Radiology Routine Bronchitis 1 Occurrences starting 07/03/2024 until 08/02/2025 [facility] Comment on above: 1 Occurrences starting 07/03/2024 until 08/02/2025 XR Chest PA and Lateral XR CHEST 2V FRONTAL/LAT Radiology Routine Bronchitis 07/22/2024 9:48 AM EDT [facility] Work Phone: [facility] Immunizations Immunization Date Immunization Notes Care Provider [facility] 10-03-2024 COVID-19 original vaccine, booster dose, monovalent (MODERNA) Lobito Maldonado MD Work Phone: [facility] 10-03-2024 influenza, seasonal, injectable Lobito Maldonado MD Work Phone: [facility] 04-29-2024 hepatitis B vaccine, adult dosage Ms Nurse Work Phone: [facility] 11-27-2023 hepatitis B vaccine, adult dosage Ms Nurse Work Phone: [facility] 10-24-2023 COVID-19 vaccine, ag e 12+ yr, season (ImpactRx) Lobito Maldonado MD Work Phone: [facility] 10-24-2023 hepatitis B vaccine, adult dosage Lobito Maldonado MD Work Phone: [facility] 06-09-2023 influenza, injectabl e, quadrivalent, contains preservative Alis Older PLANT ELECTRICAL ENGINEER.MATERIALS PLANNER/PRODUCTION PLANNER Work Phone: [facility] 06-09-2023 influenza virus vaccine, unspecified formulation Lobito Maldonado MD Work Phone: [facility] 08-19-2022 pneumococcal Conjugate, unspecified formulation Lobito Maldonado MD Work Phone: [facility] Work Phone: 08-19-2022 pneumococcal (PCV20) vaccine, 20 valent (PREVNAR 20) Lobito Maldonado MD Work Phone: [facility] 07-13-2022 influenza, injectabl e, quadrivalent, preservative free Dr. Lobito Maldonado Work Phone: [facility] 07-13-2022 influenza, seasonal, injectable Dr. Lobito Maldonado Work Phone: [facility] 03-18-2022 Covid (Moderna) Dr. Lobito Maldonado Work Phone: [facility] 10-27-2021 Covid (Moderna) Dr. Lobito Maldonado Work Phone: [facility] 07-15-2021 influenza, injectabl e, quadrivalent, preservative free Dr. Lobito Maldonado Work Phone: [facility] 07-15-2021 influenza, seasonal, injectable Dr. Lobito Maldonado Work Phone: [facility] 05-06-2021 Covid (Moderna) Dr. Lobito Maldonado Work Phone: [facility] 05-03-2021 Covid (Moderna) FIRE MANAGERBongC Souleymane Elliott FIRE MANAGER Work Phone: [facility] Work Phone: 04-12-2021 Covid (Moderna) FIRE MANAGER-Velma Elliott FIRE MANAGER Work Phone: [facility] Work Phone: 04-07-2021 Covid (Moderna) Dr. Lobito Maldonado Work Phone: [facility] 03-26-2021 tetanus toxoid, reduced diphtheria toxoid, and acellular pertussis vaccine, adsorbed FIRE MANAGER-Velma Elliott FIRE MANAGER Work Phone: [facility] Work Phone: 06-25-2020 Influenza virus vaccine FIRE MANAGER-C Souleymane Elliott FIRE MANAGER Work Phone: [facility] 06-25-2020 influenza, injectabl e, quadrivalent, preservative free Dr. Lobito Maldonado Work Phone: [facility] 06-25-2020 influenza, seasonal, injectable Souleymane Elliott PLANT ELECTRICAL ENGINEER.ANMOL VELASQUEZ Work Phone: [facility] 06-25-2020 influenza, seasonal, injectable, preservative free Lobito Maldonado MD Work Phone: [facility] Work Phone: 07-25-2018 influenza, injectabl e, quadrivalent, preservative free Souleymane Elliott PLANT ELECTRICAL ENGINEER.MATERIALS PLANNER/PRODUCTION PLANNER, DNP Work Phone: [facility] Work Phone: 06-24-2018 Influenza virus vaccine FIRE MANAGER-Velma Elliott FIRE MANAGER Work Phone: [facility] 06-24-2018 influenza, seasonal, injectable Lobito Maldonado MD Work Phone: [facility] Work Phone: 06-24-2018 influenza, seasonal, injectable, preservative free Souleymane Elliott PLANT ELECTRICAL ENGINEER.MATERIALS PLANNER/PRODUCTION PLANNER, DNP Work Phone: [facility] Work Phone: 07-18-2016 Influenza virus vaccine FIRE MANAGER-Velma Elliott FIRE MANAGER Work Phone: [facility] 07-18-2016 influenza, seasonal, injectable Lobito Maldonado MD Work Phone: [facility] Work Phone: 07-18-2016 influenza, seasonal, injectable, preservative free Souleymane Elliott APRN.MATERIALS PLANNER/PRODUCTION PLANNER, DNP Work Phone: [facility] Work Phone: 04-29-2015 influenza, injectabl e, quadrivalent, preservative free Dr. Lobito Maldonado Work Phone: [facility] 04-29-2015 influenza, seasonal, injectable Dr. Lobito Maldonado Work Phone: [facility] 04-29-2015 influenza, seasonal, injectable, preservative free Souleymane Elliott APRN.ANMOL VELASQUEZ Work Phone: [facility] Work Phone: Payers Date Payer Category Payer Self-pay [id number] 2023 Formerly [facility] [id number] 2018 Medicare [id number] 2017 Medicaid [id number] 2017 Medicare [id number] 2017 Medicare (Managed Care) [employer] [id number] 2017 Medicare [id number] 1965 Unknown [id number]. 902 Unknown [id number]. 627 Unknown Unknown [id number] 2.840.1.829547.3.579.2. 462 Unknown [id number] 2.840.1.399342.3.579.2. 462 Unknown [id number] 2.840.1.869326.3.579.2. 462 Unknown [id number] 2.840.1.509185.3.579.2. 462 Unknown [id number] 2.840.1.609533.3.579.2. 462 Unknown [id number] 2.840.1.264591.3.579.2. 462 Unknown [id number] 2.840.1.421256.3.579.2. 462 Unknown [id number] 2.840.1.435508.3.579.2. 462 Unknown [id number] 2.840.1.673790.3.579.2. 462 Unknown [id number] 2.840.1.532621.3.579.2. 462 Unknown [id number] 2.840.1.450515.3.579.2. 462 Unknown [id number] 2.840.1.701099.3.579.2. 462 Unknown [id number] 2.840.1.022952.3.579.2. 462 Unknown [id number]. 462 Social History Date Type Detail Facility Start: 10-21-2014 End: 07-03-2024 Tobacco smoking status NHIS Ex-smoker [facility] Start: 10-21-2014 End: 02-06-2023 Cigarettes smoked current (pack per day) - Reported 0.5 [facility] Work Phone: Start: 10-21-2014 End: 07-03-2024 Tobacco use and exposure Smokeless tobacco non-user [facility] Start: 12-06-2021 Alcohol intake Current drinker of alcohol (finding) [facility] Start: 03-26-2013 End: 05-16-2022 Tobacco Comment Quit age 33 [facility] Start: 1965 Sex Assigned At Male [facility] Work Phone: Start: 11-26-2021 End: 05-16-2022 Exposure to SARS-CoV-2 (event) Not sure [facility] Start: 02-27-2022 End: 01-07-2024 Tobacco smoking status NYIS Unknown if ever smoked [facility] Start: 02-17-2021 Occasional [facility] Start: 02-17-2021 None [facility] Start: 02-17-2021 Alone [facility] Start: 02-17-2021 Cigarettes [facility] Start: 09-25-1991 End: 09-25-2011 History of tobacco use Current smoker [facility] Start: 03-10-2022 End: 02-12-2025 Alcohol intake Ex-drinker (finding) [facility] Start: 03-10-2022 History SDOH Alcohol Frequency 1 [facility] Start: 03-10-2022 History SDOH Alcohol Comment quit 03/04/2022 [facility] Start: 09-25-1991 End: 09-25-2011 History of tobacco use Cigarette Smoker [facility] Work Phone: Start: 03-10-2022 End: 02-06-2023 Alcohol Use Disorder Identification Test - Consumption [AUDIT-C] [facility] Work Phone: How often to you hav e a drink containing alcohol? Never [facility] Work Phone: Average Number of Drinks Not on file [facility] Work Phone: Start: 12-01-2020 Gender identity Identifies as male gender (finding) [facility] Work Phone: Start: 12-01-2020 Sexual orientation Heterosexual (finding) [facility] Work Phone: Tobacco smoking status No Smokin g Status Entered [facility] Sex Assigned At Female [facility] Goals Date Patient Goal Desired Activity /State Functional Status Date Assessment Result Facility 01-08-2024 Functional status Ambulates [facility] Work Phone: 12-02-2022 Functional status Ambulates [facility] Work Phone: 10-27-2022 Functional status Ambulates [facility] Work Phone: 09-08-2022 Functional status Ambulates;Bath room Privilege [facility] Work Phone: 09-08-2022 Functional status Ambulates;Bath room Privilege [facility] Work Phone: 07-18-2022 Functional status Ambulates [facility] Work Phone: 03-04-2022 Functional status Ambulates [facility] Work Phone: 12-09-2021 Functional status Bathroom Privilege [facility] Work Phone: 04-20-2015 Are you deaf, or do you have serious difficulty hearing No 04/20/2015 10:02 AM Pascale Amos Ma No [facility] 04-20-2015 Are you blind, or do you have serious difficulty seeing, even when wearing glasses No 04/20/2015 10:02 AM Pascale Amos Ma No [facility] 04-20-2015 Do you have serious difficulty walking or climbing stairs No 04/20/2015 10:02 AM Pascale Amos Ma No [facility] 04-20-2015 Do you have difficul ty dressing or bathing No 04/20/2015 10:02 AM Pascale Amos Ma No [facility] 04-20-2015 Because of a physica l, mental, or emotional condition, do you have difficulty doing errands alone such as visiting a physician's office or shopping No 04/20/2015 10:02 AM EDT Pascale Reid Ma No [facility] Mental Status Date Assessment Result Facility 01-08-2024 Cognitive function Voice/Name [facility] Work Phone: 12-13-2022 Cognitive function Awake;Alert;A ppropriate; Follows Commands [facility] Work Phone: 12-01-2022 Cognitive function Voice/Name [facility] Work Phone: 10-27-2022 Cognitive function Voice/Name [facility] Work Phone: 09-08-2022 Cognitive function Voice/Name [facility] Work Phone: 07-18-2022 Cognitive function Voice/Name [facility] Work Phone: 03-04-2022 Cognitive function Voice/Name [facility] Work Phone: 12-09-2021 Cognitive function Voice/Name [facility] Work Phone: 04-20-2015 Because of a physica l, mental, or emotional condition, do you have serious difficulty concentrating, remembering, or making decisions No 04/20/2015 10:02 AM EDT Pascale Reid Ma No [facility] Clinical Notes 06-05-2015 to 02-18-2025 Telephone Encounter - Rhona Samayoa LPN - 02/18/2025 10:17 AM EDTTelephone Encounter - Rhona Samayoa LPN - 02/18/2025 10:17 AM EDT Note Date & Type Note Facility 02-18-2025 Telephone encount er Note Duplicate request, refills sent to [facility] 02/12/2025. Rhona Samayoa LPN [facility] 02-18-2025 Miscellaneous Notes Formattin g of this note might be different from the original. Duplicate request, refills sent to [facility] 02/12/2025. Rhona Samayoa LPN Prescription Refill Information The patient has been identified by name and date of : Yes Caregiver verified no other encounters exist for this prescription request: Yes Caregiver confirmed with patient/requestor that no other refills are due, in the near future, with this provider at this time: Yes The last office visit in the department: 02-12-25 Does the patient have a future office visit with this provider/department: Yes Requested Prescriptions Pending Prescriptions Disp Refills escitalopram oxalate (LEXAPRO) 10 mg tablet 90 tablet 3 Sig: Take 1 tablet by mouth once daily. hydroCHLOROthiazide 25 mg tablet 90 tablet 3 Sig: Take 1 tablet by mouth once daily. metFORMIN (GLUCOPHAGE) 500 mg tablet 180 tablet 3 Sig: Take 1 tablet by mouth two times a day with meals. amitriptyline (ELAVIL) 25 mg tablet 90 tablet 1 Sig: Take 1 tablet by mouth daily at bedtime. pravastatin (PRAVACHOL) 20 mg tablet 90 tablet 3 Sig: Take 1 tablet by mouth once daily. pantoprazole DR (PROTONIX) 40 mg tablet 90 tablet 3 Sig: Take 1 tablet by mouth once daily. loratadine (CLARITIN) 10 mg tablet 90 tablet 3 Sig: Take 1 tablet by mouth once daily. aspirin, enteric coated (ASPIRIN, ENTERIC COATED) 81 mg EC tablet 90 tablet 3 Sig: Take 1 tablet by mouth once daily. gabapentin (NEURONTIN) 300 mg capsule 180 capsule 1 Sig: Take 1 capsule by mouth two times a day for 180 days. tamsulosin (FLOMAX) 0.4 mg 90 capsule 3 Sig: Take 1 capsule by mouth once daily. 30 minutes after the same meal each day. magnesium oxide (MAG-OX) 400 mg (241.3 mg magnesium) tablet 180 tablet 3 Sig: Take 1 tablet by mouth two times a day. Sarah Beth Jarrett February 14, 2025 8:52 AM documented in this encounter [facility] 02-14-2025 Telephone encount er Note Prescription Refill Information The patient has been identified by name and date of : Yes Caregiver verified no other encounters exist for this prescription request: Yes Caregiver confirmed with patient/requestor that no other refills are due, in the near future, with this provider at this time: Yes The last office visit in the department: 02-12-25 Does the patient have a future office visit with this provider/department: Yes Requested Prescriptions Pending Prescriptions Disp Refills escitalopram oxalate (LEXAPRO) 10 mg tablet 90 tablet 3 Sig: Take 1 tablet by mouth once daily. hydroCHLOROthiazide 25 mg tablet 90 tablet 3 Sig: Take 1 tablet by mouth once daily. metFORMIN (GLUCOPHAGE) 500 mg tablet 180 tablet 3 Sig: Take 1 tablet by mouth two times a day with meals. amitriptyline (ELAVIL) 25 mg tablet 90 tablet 1 Sig: Take 1 tablet by mouth daily at bedtime. pravastatin (PRAVACHOL) 20 mg tablet 90 tablet 3 Sig: Take 1 tablet by mouth once daily. pantoprazole DR (PROTONIX) 40 mg tablet 90 tablet 3 Sig: Take 1 tablet by mouth once daily. loratadine (CLARITIN) 10 mg tablet 90 tablet 3 Sig: Take 1 tablet by mouth once daily. aspirin, enteric coated (ASPIRIN, ENTERIC COATED) 81 mg EC tablet 90 tablet 3 Sig: Take 1 tablet by mouth once daily. gabapentin (NEURONTIN) 300 mg capsule 180 capsule 1 Sig: Take 1 capsule by mouth two times a day for 180 days. tamsulosin (FLOMAX) 0.4 mg 90 capsule 3 Sig: Take 1 capsule by mouth once daily. 30 minutes after the same meal each day. magnesium oxide (MAG-OX) 400 mg (241.3 mg magnesium) tablet 180 tablet 3 Sig: Take 1 tablet by mouth two times a day. Sarah Beth Jarrett February 14, 2025 8:52 AM T [facility] 02-13-2025 Evaluation note Diagnosis Onset Date Resolution Epilepsy chronic February 13, 2025 1:37pm Hyperammonemia resolved February 13, 2025 1:37pm [facility] Work Phone: 1(682) 261-794005-21-2025 NoteHNO ID: [id number] Author: ALIS CHUA APRN.MATERIALS PLANNER/PRODUCTION PLANNER Service: ? Author Type: Nurse Practitioner Type: Progress Notes Filed: 02/12/2025 16:05 Note Text: Bronson Weller is a 59 year old male here for a Medicare wellness visit. Medicare Health Risk Assessment General Health Good Exercise: Minutes/Day 0 min Exercise: Days/Week 0 days Alcohol: Daily Use Never Alcohol: Drinks/Day Patient does not drink Alcohol: 6 or more drinks Never Feel off balance No Concerns: Teeth/Dentures Decline Concerns: Sexual function Decline Troubled by feelings Stressed Frequency: Eating healthy diet Nearly every day ADLs requiring help None of the above Safety precautions in home/vehicle No Smoke, vape, chews tobacco No Difficulty hearing No Difficulty seeing No Current Providers Specialists: I have reviewed specialist-related care of the patient in the medical record. Current care team: Patient Care Team: Lobito Maldonado MD as PCP - General (Internal Medicine) Alis Chua APRN.CNP as Loan Coordinator (Internal Medicine) Dr. Burnett-neurology Kat Galindo-optometry Dr. Santamaria-GI Medical/Family history review Reviewed and updated problem list, medical/surgical/family/social history, medications, and allergies. Opioid use review Opioid Medications (last 90 days) No data to display Anxiety/Depression screening PHQ-2 Score: 0 Recommendation: no further intervention at this time Cognitive screening Mini Cog Score: 3 Cognitive screening reviewed and No further action needed (score 3-5). Functional Observation Was the patient's Timed Up AND Go test unsteady or >= 12 seconds? No Advance Care Planning Patient did not wish or was not able to name a surrogate decision maker or provide an advance care plan Measurements BP 118/80 Pulse 80 Resp 14 Ht 179.5 cm (5' 10.67) Wt 79.3 kg (174 lb 13.2 oz) BMI 24.61 kg/m? Vision Screening: Follows with optometry/ophthalmology Assessment/Plan Medicare annual wellness visit, subsequent (Z00.00) - Counseled on healthy diet and regular exercise - Fall avoidance information provided - Personalized prevention plan provided Additional Concerns The following concerns were also discussed with the patient: Recording using ambient [employer] software for draft documentation of the visit was discussed with the patient/authorized printing sales representative; all questions welcomed and answered. Patient/authorized printing sales representative agreed to proceed Anxiety and Depression: - Managed with Lexapro and amitriptyline. - Amitriptyline also helps with sleep. - Recent depression score was 0. Diabetes Mellitus: - Takes metformin BID and Lantus 16 units daily. - Monitors blood glucose levels in the morning and at night; levels are generally good. - Uses [employer] Agustin for continuous glucose monitoring. - Last episode of pancreatitis was attributed to Jardiance, which has been discontinued. Hypertension: - Takes amlodipine 10 mg daily. - Monitors blood pressure at home; last reading was 124 mmHg this morning. GERD: - Managed with pantoprazole; symptoms are well-controlled. Seizures: - Managed with Keppra. - Scheduled to see Dr. Gonzalez tomorrow. BP 118/80 Pulse 80 Resp 14 Ht 179.5 cm (5' 10.67) Wt 79.3 kg (174 lb 13.2 oz) BMI 24.61 kg/m? Physical Exam Vitals reviewed. Constitutional: Appearance: Normal appearance. Cardiovascular: Rate and Rhythm: Normal rate and regular rhythm. Heart sounds: Normal heart sounds. No murmur heard. Pulmonary: Effort: Pulmonary effort is normal. Breath sounds: Normal breath sounds. No wheezing, rhonchi or rales. Skin: General: Skin is warm and dry. Neurological: Mental Status: He is alert. Psychiatric: Mood and Affect: Mood and affect normal. 1. Medicare annual wellness visit, subsequent (Z00.00) See medicare wellness plan 2. Posttraumatic stress disorder (F43.10) - Managed with amitriptyline, which also aids in sleep. - Refilled amitriptyline 90-day supply. 3. Seasonal allergic rhinitis due to pollen (J30.1) - Managed with Claritin daily. 4. Hypertension, essential (I10) - Blood pressure well-controlled; today's reading 118/80 mmHg. - Home readings consistently within normal range; last reading 124 mmHg. - Refilled amlodipine 10 mg. - Scheduled cardiology appointment. 5. Hypomagnesemia (E83.42) - Awaiting lab results to assess current status. 6. GERD without esophagitis (K21.9) - Controlled with pantoprazole. 7. Lower urinary tract symptoms (LUTS) (R39.9) Stable on Flomax 8. Mixed hyperlipidemia (E78.2) - Awaiting lipid panel results. 9. 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 (I25.10) Needs new permit specialist, will place referral 10. Type 2 diabetes mellitus without complication, with long-term current use of insulin (HCC) (E11.9) - Managed with metformin BID and Lantus 16 units daily. (more content not included)...[facility]05-06-2025 Telephone encounter Note* Telephone Encounter - Adore Perry LPN - 01/28/2025 11:18 AM EDT Pt has appt [facility] 02/06/25. Refills can be reviewed then. [facility]05-06-2025 Miscellaneous Notes* Telephone Encounter - Adore Perry LPN - 01/28/2025 11:18 AM EDT Pt has appt [facility] 02/06/25. Refills can be reviewed then. * Telephone Encounter - Sarah Beth Gandhi - 01/28/2025 9:22 AM EDT Prescription Refill Information The patient has been identified by name and date of : Yes Caregiver verified no other encounters exist for this prescription request: Yes Caregiver confirmed with patient/requestor that no other refills are due, in the near future, with this provider at this time: Yes The last office visit in the department: 10-24-24 Does the patient have a future office visit with this provider/department: Yes Requested Prescriptions Pending Prescriptions Disp Refills escitalopram oxalate (LEXAPRO) 10 mg tablet 30 tablet 2 Sig: Take 1 tablet by mouth once daily. hydroCHLOROthiazide 25 mg tablet 30 tablet 2 Sig: Take 1 tablet by mouth once daily. metFORMIN (GLUCOPHAGE) 500 mg tablet 60 tablet 2 Sig: Take 1 tablet by mouth two times a day with meals. amitriptyline (ELAVIL) 25 mg tablet 30 tablet 2 Sig: Take 1 tablet by mouth daily at bedtime. pravastatin (PRAVACHOL) 20 mg tablet 30 tablet 2 Sig: Take 1 tablet by mouth once daily. Cholecalciferol, Vitamin D3, 125 mcg (5,000 unit) cap 30 capsule 2 Sig: Take 1 capsule by mouth once daily. pantoprazole DR (PROTONIX) 40 mg tablet 30 tablet 2 Sig: Take 1 tablet by mouth once daily. loratadine (CLARITIN) 10 mg tablet 30 tablet 2 Sig: Take 1 tablet by mouth once daily. aspirin, enteric coated (ASPIRIN, ENTERIC COATED) 81 mg EC tablet 30 tablet 2 Sig: Take 1 tablet by mouth once daily. gabapentin (NEURONTIN) 300 mg capsule 60 capsule 2 Sig: Take 1 capsule by mouth two times a day for 90 days. tamsulosin (FLOMAX) 0.4 mg 30 capsule 5 Sig: Take 1 capsule by mouth once daily. 30 minutes after the same meal each day. magnesium oxide (MAG-OX) 400 mg (241.3 mg magnesium) tablet 60 tablet 5 Sig: Take 1 tablet by mouth two times a day. Sarah Beth Jarrett January 28, 2025 9:24 AM [facility] Telephone encounter Note * Telephone Encounter - Sarah Beth Gandhi - 01/28/2025 9:22 AM EDT Prescription Refill Information The patient has been identified by name and date of : Yes Caregiver verified no other encounters exist for this prescription request: Yes Caregiver confirmed with patient/requestor that no other refills are due, in the near future, with this provider at this time: Yes The last office visit in the department: 10-24-24 Does the patient have a future office visit with this provider/department: Yes Requested Prescriptions Pending Prescriptions Disp Refills escitalopram oxalate (LEXAPRO) 10 mg tablet 30 tablet 2 Sig: Take 1 tablet by mouth once daily. hydroCHLOROthiazide 25 mg tablet 30 tablet 2 Sig: Take 1 tablet by mouth once daily. metFORMIN (GLUCOPHAGE) 500 mg tablet 60 tablet 2 Sig: Take 1 tablet by mouth two times a day with meals. amitriptyline (ELAVIL) 25 mg tablet 30 tablet 2 Sig: Take 1 tablet by mouth daily at bedtime. pravastatin (PRAVACHOL) 20 mg tablet 30 tablet 2 Sig: Take 1 tablet by mouth once daily. Cholecalciferol, Vitamin D3, 125 mcg (5,000 unit) cap 30 capsule 2 Sig: Take 1 capsule by mouth once daily. pantoprazole DR (PROTONIX) 40 mg tablet 30 tablet 2 Sig: Take 1 tablet by mouth once daily. loratadine (CLARITIN) 10 mg tablet 30 tablet 2 Sig: Take 1 tablet by mouth once daily. aspirin, enteric coated (ASPIRIN, ENTERIC COATED) 81 mg EC tablet 30 tablet 2 Sig: Take 1 tablet by mouth once daily. gabapentin (NEURONTIN) 300 mg capsule 60 capsule 2 Sig: Take 1 capsule by mouth two times a day for 90 days. tamsulosin (FLOMAX) 0.4 mg 30 capsule 5 Sig: Take 1 capsule by mouth once daily. 30 minutes after the same meal each day. magnesium oxide (MAG-OX) 400 mg (241.3 mg magnesium) tablet 60 tablet 5 Sig: Take 1 tablet by mouth two times a day. Sarah Beth Jarrett January 28, 2025 9:24 AM [facility]04-24-2025 NoteHNO ID: [id number] Author: KAT GALINDO OD Service: ? Author Type: AIR BRAKES INSPECTOR Type: Progress Notes Filed: 01/31/2025 10:38 Note Text: 1. Primary open angle glaucoma (POAG) of both eyes, mild stage 2. 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 Type 2 diabetes mellitus without retinopathy A1c reviewed: 7.2 Advised to continue current therapy Risk of diabetic changes and vision loss can be minimized by tight control of blood sugar, blood pressure, and cholesterol levels. Educated patient to continue care with primary care doctor and/or fund accounting manager to maintain optimum levels as they are important to avoid ocular complications. Encouraged patient to call the office immediately with any changes to vision or visual concerns. Advised to not wait until the next scheduled exam. 4. Combined form of age-related cataract, both eyes Mild- monitor 5. Myopia, bilateral 6. Regular astigmatism, bilateral 7. Presbyopia Finalized spec rx Follow-up in 6 months 24-2 and IOP Kat Galindo, OD January 16[facility]02-13-2025 Telephone encounter Note* Telephone Encounter - Tonio Jackson RN - 11/07/2024 4:20 PM EST The patient has been identified by name and date of : Yes Caregiver verified no other encounters exist for this prescription request: Yes Caregiver confirmed with patient/requestor that no other refills are due, in the near future, with this provider at this time: Yes The last office visit in the department: 10/24/2024 Does the patient have a future office visit with this provider/department: Yes 02/06/2025 Requested Prescriptions Pending Prescriptions Disp Refills amitriptyline (ELAVIL) 25 mg tablet 30 tablet 5 Sig: Take 1 tablet by mouth daily at bedtime. aspirin, enteric coated (ASPIRIN, ENTERIC COATED) 81 mg EC tablet 30 tablet 5 Sig: Take 1 tablet by mouth once daily. Cholecalciferol, Vitamin D3, 125 mcg (5,000 unit) cap 30 capsule 5 Sig: Take 1 capsule by mouth once daily. escitalopram oxalate (LEXAPRO) 10 mg tablet 30 tablet 5 Sig: Take 1 tablet by mouth once daily. gabapentin (NEURONTIN) 300 mg capsule 60 capsule 2 Sig: Take 1 capsule by mouth two times a day for 90 days. hydroCHLOROthiazide 25 mg tablet 30 tablet 5 Sig: Take 1 tablet by mouth once daily. loratadine (CLARITIN) 10 mg tablet 30 tablet 5 Sig: Take 1 tablet by mouth once daily. metFORMIN (GLUCOPHAGE) 500 mg tablet 60 tablet 5 Sig: Take 1 tablet by mouth two times a day with meals. pravastatin (PRAVACHOL) 20 mg tablet 30 tablet 5 Sig: Take 1 tablet by mouth once daily. pantoprazole DR (PROTONIX) 40 mg tablet 30 tablet 5 Sig: Take 1 tablet by mouth once daily. Tonio Jackson RN November 07, 2024 4:26 PM [facility]02-13-2025 Miscellaneous Notes* Telephone Encounter - Tonio Jackson RN - 11/07/2024 4:20 PM EST The patient has been identified by name and date of : Yes Caregiver verified no other encounters exist for this prescription request: Yes Caregiver confirmed with patient/requestor that no other refills are due, in the near future, with this provider at this time: Yes The last office visit in the department: 10/24/2024 Does the patient have a future office visit with this provider/department: Yes 02/06/2025 Requested Prescriptions Pending Prescriptions Disp Refills amitriptyline (ELAVIL) 25 mg tablet 30 tablet 5 Sig: Take 1 tablet by mouth daily at bedtime. aspirin, enteric coated (ASPIRIN, ENTERIC COATED) 81 mg EC tablet 30 tablet 5 Sig: Take 1 tablet by mouth once daily. Cholecalciferol, Vitamin D3, 125 mcg (5,000 unit) cap 30 capsule 5 Sig: Take 1 capsule by mouth once daily. escitalopram oxalate (LEXAPRO) 10 mg tablet 30 tablet 5 Sig: Take 1 tablet by mouth once daily. gabapentin (NEURONTIN) 300 mg capsule 60 capsule 2 Sig: Take 1 capsule by mouth two times a day for 90 days. hydroCHLOROthiazide 25 mg tablet 30 tablet 5 Sig: Take 1 tablet by mouth once daily. loratadine (CLARITIN) 10 mg tablet 30 tablet 5 Sig: Take 1 tablet by mouth once daily. metFORMIN (GLUCOPHAGE) 500 mg tablet 60 tablet 5 Sig: Take 1 tablet by mouth two times a day with meals. pravastatin (PRAVACHOL) 20 mg tablet 30 tablet 5 Sig: Take 1 tablet by mouth once daily. pantoprazole DR (PROTONIX) 40 mg tablet 30 tablet 5 Sig: Take 1 tablet by mouth once daily. Tonio Jackson RN November 07, 2024 4:26 PM documented in this encounter[facility] Telephone encounter Note * Telephone Encounter - Liat Cervantes - 10/28/2024 3:21 PM EST Patient has been identified by name and date of : Yes Patient phones for refill(s): Requested Prescriptions Pending Prescriptions Disp Refills insulin glargine (LANTUS SOLOSTAR U-100 INSULIN) 100 unit/mL (3 mL) 5 Each 5 Sig: Inject 16 Units subcutaneously daily at bedtime. Date of last office visit in primary care: 10/24/2024 Date of next office visit in primary care: 02/06/2025 Please advise. Thank you. Liat Cervantes. [facility]02-03-[facility]25 Miscellaneous Notes* Telephone Encounter - Liat Cervantes - 10/28/2024 3:21 PM EST Patient has been identified by name and date of : Yes Patient phones for refill(s): Requested Prescriptions Pending Prescriptions Disp Refills insulin glargine (LANTUS SOLOSTAR U-100 INSULIN) 100 unit/mL (3 mL) 5 Each 5 Sig: Inject 16 Units subcutaneously daily at bedtime. Date of last office visit in primary care: 10/24/2024 Date of next office visit in primary care: 02/06/2025 Please advise. Thank you. Liat Cervantes. documented in this encounterBrown [facility]01-30-[facility]25 NoteHNO ID: [id number] Author: LOBITO MALDONADO MD Service: ? Author Type: Physician Type: Progress Notes Filed: 10/24/2024 14:42 Note Text: This note was created using [email or web address]. Subjective Patient presents with: F/U 3 Month Bronson Weller is a 59 year old male. He was doing reasonably well. His diabetes mellitus was staying controlled by all indications. His medications and vaccinations were not visible on reconciliation. He was overdue for colonoscopy. He was seeing Dr. Santamaria regularly now for GI follow up and will discuss this with him. Review of Systems Constitutional: Negative for fatigue, fever and unexpected weight change. Eyes: Negative for visual disturbance. Respiratory: Negative for cough and shortness of breath. Cardiovascular: Negative for chest pain, palpitations and leg swelling. Gastrointestinal: Negative for abdominal pain, diarrhea, nausea and vomiting. Genitourinary: Negative for difficulty urinating, dysuria and hematuria. Neurological: Negative for numbness. 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 Hypomagnesemia Social History Tobacco Use Smoking status: Former Current packs/day: 0.00 Average packs/day: 0.5 packs/day for 20.0 years (10.0 ttl pk-yrs) Types: Cigarettes Start date: 09/25/1991 Quit date: 09/25/2011 Years since quittin.0 Smokeless tobacco: Never Tobacco comments: Quit age 33 Vaping Use Vaping status: Never Used Substance Use Topics Alcohol use: Not Currently Alcohol/week: 3.0 standard drinks of alcohol Types: 3 Cans of Beer (12oz) per week Comment: quit 03/04/2022 Drug use: Never Current Outpatient Medications Medication Sig amitriptyline (ELAVIL) 25 mg tablet Take 1 tablet by mouth daily at bedtime. aspirin, enteric coated (ASPIRIN, ENTERIC COATED) 81 mg EC tablet Take 1 tablet by mouth once daily. Cholecalciferol, Vitamin D3, 125 mcg (5,000 unit) cap Take 1 capsule by mouth once daily. escitalopram oxalate (LEXAPRO) 10 mg tablet Take 1 tablet by mouth once daily. gabapentin (NEURONTIN) 300 mg capsule Take 1 capsule by mouth two times a day for 90 days. hydroCHLOROthiazide 25 mg tablet Take 1 tablet by mouth once daily. loratadine (CLARITIN) 10 mg tablet Take 1 tablet by mouth once daily. metFORMIN (GLUCOPHAGE) 500 mg tablet Take 1 tablet by mouth two times a day with meals. pravastatin (PRAVACHOL) 20 mg tablet Take 1 tablet by mouth once daily. FREESTYLE AGUSTIN 3 SENSOR josse Apply 1 Kit to affected area as directed. Change twice monthly. Check blood glucose four or more times daily. magnesium oxide (MAG-OX) 400 mg (241.3 mg magnesium) tablet Take 1 tablet by mouth two times a day. tamsulosin (FLOMAX) 0.4 mg Take 1 capsule by mouth once daily. 30 minutes after the same meal each day. latanoprost (XALATAN) 0.005 % ophthalmic solution Use 1 Drop in both eyes daily at bedtime. losartan (COZAAR) 25 mg tablet Take 1 tablet by mouth once daily. pantoprazole DR (PROTONIX) 40 mg tablet Take 1 tablet by mouth once daily. flash glucose sensor (FREESTYLE AGUSTIN 14 DAY SENSOR) kit 1 Each every 2 weeks. ondansetron orally disintegrating (ZOFRAN ODT) 4 mg disintegrating tablet Take by mouth. Blood-Glucose Meter,Continuous (FREESTYLE AGUSTIN 3 READER) [facility] [place] glucose 4 or more times daily. insulin glargine (LANTUS SOLOSTAR U-100 INSULIN) 100 unit/mL (3 mL) Inject 16 Units subcutaneously daily at bedtime. ursodiol (AILYN) 250 mg tablet Take 1 tablet by mouth twice daily. Per [facility]. vnbgkg-rgosoccf-wcdvgop (CREON) 12,000-38,000 -60,000 unit delayed release capsule [...] 1 tablet by mouth three times daily. docosahexaenoic acid/epa (FISH OIL ORAL) Take by mouth once daily. fluticasone propionate (FLONASE NASAL) Use in the nose once daily. Multivitamin capsule Take 1 capsule by mouth once daily. (more content not included)...[facility]01-30-2025 History of Present illness Narrative* Lobito Maldonado MD - 10/24/2024 1:43 PM EST This note was created using NoteWriter. Subjective Patient presents with: F/U 3 Month Bronson Weller is a 59 year old male. He was doing reasonably well. His diabetes mellitus was staying controlled by all indications. His medications and vaccinations were not visible on reconciliation. He was overdue for colonoscopy. He was seeing Dr. Santamaria regularly now for GI follow up and will discuss this with him. Review of Systems Constitutional: Negative for fatigue, fever and unexpected weight change. Eyes: Negative for visual disturbance. Respiratory: Negative for cough and shortness of breath. Cardiovascular: Negative for chest pain, palpitations and leg swelling. Gastrointestinal: Negative for abdominal pain, diarrhea, nausea and vomiting. Genitourinary: Negative for difficulty urinating, dysuria and hematuria. Neurological: Negative for numbness. 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 Hypomagnesemia Social History Tobacco Use Smoking status: Former Current packs/day: 0.00 Average packs/day: 0.5 packs/day for 20.0 years (10.0 ttl pk-yrs) Types: Cigarettes Start date: 09/25/1991 Quit date: 09/25/2011 Years since quittin.0 Smokeless tobacco: Never Tobacco comments: Quit age 33 Vaping Use Vaping status: Never Used Substance Use Topics Alcohol use: Not Currently Alcohol/week: 3.0 standard drinks of alcohol Types: 3 Cans of Beer (12oz) per week Comment: quit 03/04/2022 Drug use: Never Current Outpatient Medications Medication Sig amitriptyline (ELAVIL) 25 mg tablet Take 1 tablet by mouth daily at bedtime. aspirin, enteric coated (ASPIRIN, ENTERIC COATED) 81 mg EC tablet Take 1 tablet by mouth once daily. Cholecalciferol, Vitamin D3, 125 mcg (5,000 unit) cap Take 1 capsule by mouth once daily. escitalopram oxalate (LEXAPRO) 10 mg tablet Take 1 tablet by mouth once daily. gabapentin (NEURONTIN) 300 mg capsule Take 1 capsule by mouth two times a day for 90 days. hydroCHLOROthiazide 25 mg tablet Take 1 tablet by mouth once daily. loratadine (CLARITIN) 10 mg tablet Take 1 tablet by mouth once daily. metFORMIN (GLUCOPHAGE) 500 mg tablet Take 1 tablet by mouth two times a day with meals. pravastatin (PRAVACHOL) 20 mg tablet Take 1 tablet by mouth once daily. FREESTYLE AGUSTIN 3 SENSOR josse Apply 1 Kit to affected area as directed. Change twice monthly. Checkblood glucose four or more times daily. magnesium oxide (MAG-OX) 400 mg (241.3 mg magnesium) tablet Take 1 tablet by mouth two times a day. tamsulosin (FLOMAX) 0.4 mg Take 1 capsule by mouth once daily. 30 minutes after the same meal each day. latanoprost (XALATAN) 0.005 % ophthalmic solution Use 1 Drop in both eyes daily at bedtime. losartan (COZAAR) 25 mg tablet Take 1 tablet by mouth once daily. pantoprazole DR (PROTONIX) 40 mg tablet Take 1 tablet by mouth once daily. flash glucose sensor (FREESTYLE AGUSTIN 14 DAY SENSOR) kit 1 Each every 2 weeks. ondansetron orally disintegrating (ZOFRAN ODT) 4 mg disintegrating tablet Take by mouth. Blood-Glucose Meter,Continuous (FREESTYLE AGUSTIN 3 READER) [facility] [place] Check glucose 4 or more times daily. insulin glargine (LANTUS SOLOSTAR U-100 INSULIN) 100 unit/mL (3 mL) Inject 16 Units subcutaneously daily at bedtime. ursodiol (AILYN) 250 mg tablet Take 1 tablet by mouth twice daily. Per [facility]. qzacyz-jdpjgynz-dezskut (CREON) 12,000-38,000 -60,000 unit delayed release capsule [...] 1 tablet by mouth three times daily. docosahexaenoic acid/epa (FISH OIL ORAL) Take by mouth once daily. fluticasone propionate (FLONASE NASAL) Use in the nose once daily. Multivitamin capsule Take 1 capsule by mouth once daily. nitroglycerin sublingual (NITROQUICK) 0.4 mg SL tablet Dissolve 0.4 mg under the tongue every 5 minutes as needed. No current facility-administered medications for this visit. Objective BP 104/70 (BP Site: Left Arm, BP Position: Sitting, BP Cuff Size: Large Adult) Pulse 108 Temp 36.6 C (97.8 F) (Temporal) Resp 20 Wt 81.2 kg (179 lb 0.2 oz) BMI 25.69 kg/m Physical Exam Constitutional: General: He is not in acute distress. Eyes: General: No scleral icterus. Conjunctiva/sclera: Conjunctivae normal. Cardiovascular: Rate and Rhythm: Normal rate and regular rhythm. Pulses: Normal pulses. Heart sounds: No murmur heard. No gallop. Pulmonary: Breath sounds: Normal breath sounds. Abdominal: General: There is no distension. Palpations: Abdomen is soft. Tenderness: There is no abdominal tenderness. Musculoskeletal: Right lower leg: No edema. Left lower leg: No edema. Neurological: General: No focal deficit present. Mental Status: He is alert. Feet:Shoes and socks removed, No ulcers, calluses, normal distal pulses, sensitive to 10 gm monofilament, and nails notable for Deformed or Hypertrophic. Dry skin at heels. Flat feet. Assessment and Plan 1. Type 2 diabetes mellitus without complication, with long-term current use of insulin ([facility]) - ICD9: 250.00, V58.67, ICD10: E11.9, Z79.4 (primary diagnosis) - Controlled - Continue current medications - HEMOGLOBIN A1C - ALBUMIN/CREATININE RATIO, URINE 2. Hypertension, essential - ICD9: 401.9, ICD10: I10 - Controlled - Continue current medications 3. Mixed hyperlipidemia - ICD9: 272.2, ICD10: E78.2 - Control undetermined, due for labs - Continue current medications - Counseled on healthy diet and regular exercise - COMPREHENSIVE METABOLIC PANEL - LIPID PANEL BASIC 4. 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- ICD9: 414.01, ICD10: I25.10 - Stable. He was not seeing cardiology. 5. Prostate cancer (HCC) - ICD9: 185, ICD10: C61 On surveillance. - PROSTATE-SPECIFIC ANTIGEN DIAGNOSTIC 6. Nonintractable generalized 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 (HCC) - ICD9: 345.90, ICD10: G40.309 Stable. - LEVETIRACETAM 7. Hypomagnesemia - ICD9: 275.2, ICD10: E83.42 Supplemented. - MAGNESIUM 8. Alcohol-induced chronic pancreatitis (HCC) - ICD9: 577.1, ICD10: K86.0 - [facility] Lobito Maldonado MD documented in this encounterBrown [facility]01-30-[facility] Telephone encounter Note * Telephone Encounter - Rhona Samayoa LPN - 10/24/2024 9:01 AM EST Patient rescheduled for 10/24/2024. Rhona Samayoa LPN [facility] Miscellaneous Notes* Telephone Encounter - Rhona Samayoa LPN - 10/24/2024 9:01 AM EST Patient rescheduled for 10/24/2024. Rhona Samayoa LPN * Telephone Encounter - Dee Tran MA - 10/23/2024 1:13 PM EST Left message apologizing for miscommunication/time error asked patient to call back so we can r/s. Patient in vm advised provider does not see patients from 12- due to emily\ch hours. Dee Tran MA * Telephone Encounter - Davina Li RN - 10/23/2024 12:26 PM EST Patient calls and is upset about below. Please advise. Davina Li RN * Telephone Encounter - Miguel Bridges - 10/23/2024 12:21 PM EST Patient came in today and was upset, because he said he received a call from [facility] telling him to come in at 12:30 for a Maldonado appt today that was marked as no show when he did not attend it for its 10:00 time. documented in this encounterBrown [facility] Hospital01-29-2025 Telephone encounter Note * Telephone Encounter - Dee Tran MA - 10/23/2024 1:13 PM EST Left message apologizing for miscommunication/time error asked patient to call back so we can r/s. Patient in vm advised provider does not see patients from - due to emily\ch hours. Dee Tran MA [facility]01-[facility] Telephone encounter Note* Telephone Encounter - Davina Li RN - 10/23/2024 12:26 PM EST Patient calls and is upset about below. Please advise. Davina Li RN [facility]01-[facility] Telephone encounter Note* Telephone Encounter - Miguel Bridges - 10/23/2024 12:21 PM EST Patient came in today and was upset, because he said he received a call from [facility] telling him to come in at 12:30 for a Maldonado appt today that was marked as no show when he did not attend it for its 10:00 time. [facility]01-[facility] Miscellaneous Notes* Telephone Encounter - Kay Molina RN - 10/10/2024 4:38 PM EST The patient has been identified by name and date of : Yes Caregiver verified no other encounters exist for this prescription request: Yes Caregiver confirmed with patient/requestor that no other refills are due, in the near future, with this provider at this time: Yes The last office visit in the department: 07/03/2024 Does the patient have a future office visit with this provider/department: No Cancelled 09/30/24 apptCalled pt and per appt for 10/23/[address] Maldonado Requested Prescriptions Pending Prescriptions Disp Refills amitriptyline (ELAVIL) 25 mg tablet 30 tablet 2 Sig: Take 1 tablet by mouth daily at bedtime. aspirin, enteric coated (ASPIRIN, ENTERIC COATED) 81 mg EC tablet 30 tablet 2 Sig: Take 1 tablet by mouth once daily. Cholecalciferol, Vitamin D3, 125 mcg (5,000 unit) cap 30 capsule 2 Sig: Take 1 capsule by mouth once daily. escitalopram oxalate (LEXAPRO) 10 mg tablet 30 tablet 2 Sig: Take 1 tablet by mouth once daily. gabapentin (NEURONTIN) 300 mg capsule 60 capsule 2 Sig: Take 1 capsule by mouth two times a day for 90 days. hydroCHLOROthiazide 25 mg tablet 30 tablet 2 Sig: Take 1 tablet by mouth once daily. loratadine (CLARITIN) 10 mg tablet 30 tablet 2 Sig: Take 1 tablet by mouth once daily. metFORMIN (GLUCOPHAGE) 500 mg tablet 60 tablet 2 Sig: Take 1 tablet by mouth two times a day with meals. pravastatin (PRAVACHOL) 20 mg tablet 30 tablet 2 Sig: Take 1 tablet by mouth once daily. Kay Molina RN October 10, 2024 4:39 PM documented in this encounterBrown [facility] Hospital01-16-2025 Telephone encounter Note * Telephone Encounter - Kay Molina RN - 10/10/2024 4:38 PM EST The patient has been identified by name and date of : Yes Caregiver verified no other encounters exist for this prescription request: Yes Caregiver confirmed with patient/requestor that no other refills are due, in the near future, with this provider at this time: Yes The last office visit in the department: 07/03/2024 Does the patient have a future office visit with this provider/department: No Cancelled 09/30/24 apptCalled pt and per appt for 10/23/[address] Maldonado Requested Prescriptions Pending Prescriptions Disp Refills amitriptyline (ELAVIL) 25 mg tablet 30 tablet 2 Sig: Take 1 tablet by mouth daily at bedtime. aspirin, enteric coated (ASPIRIN, ENTERIC COATED) 81 mg EC tablet 30 tablet 2 Sig: Take 1 tablet by mouth once daily. Cholecalciferol, Vitamin D3, 125 mcg (5,000 unit) cap 30 capsule 2 Sig: Take 1 capsule by mouth once daily. escitalopram oxalate (LEXAPRO) 10 mg tablet 30 tablet 2 Sig: Take 1 tablet by mouth once daily. gabapentin (NEURONTIN) 300 mg capsule 60 capsule 2 Sig: Take 1 capsule by mouth two times a day for 90 days. hydroCHLOROthiazide 25 mg tablet 30 tablet 2 Sig: Take 1 tablet by mouth once daily. loratadine (CLARITIN) 10 mg tablet 30 tablet 2 Sig: Take 1 tablet by mouth once daily. metFORMIN (GLUCOPHAGE) 500 mg tablet 60 tablet 2 Sig: Take 1 tablet by mouth two times a day with meals. pravastatin (PRAVACHOL) 20 mg tablet 30 tablet 2 Sig: Take 1 tablet by mouth once daily. Kay Molina RN October 10, 2024 4:39 PM [facility] Telephone encounter Note* Telephone Encounter - Davina Li RN - 09/11/2024 9:05 AM EST The patient has been identified by name and date of : Yes Caregiver verified no other encounters exist for this prescription request: Yes Caregiver confirmed with patient/requestor that no other refills are due, in the near future, with this provider at this time: Yes The last office visit in the department: 07/03/2024 Does the patient have a future office visit with this provider/department: Yes 09/30/2024 Requested Prescriptions Pending Prescriptions Disp Refills FREESTYLE AGUSTIN 3 SENSOR josse 2 Each 5 Sig: Apply 1 Kit to affected area as directed. Change twice monthly. Check blood glucose four or more times daily. Davina Li RN September 11, 2024 9:06 AM [facility] Miscellaneous Notes* Telephone Encounter - aDvina Li RN - 09/11/2024 9:05 AM EST The patient has been identified by name and date of : Yes Caregiver verified no other encounters exist for this prescription request: Yes Caregiver confirmed with patient/requestor that no other refills are due, in the near future, with this provider at this time: Yes The last office visit in the department: 07/03/2024 Does the patient have a future office visit with this provider/department: Yes 09/30/2024 Requested Prescriptions Pending Prescriptions Disp Refills FREESTYLE AGUSTIN 3 SENSOR josse 2 Each 5 Sig: Apply 1 Kit to affected area as directed. Change twice monthly. Check blood glucose four or more times daily. Davina Li RN September 11, 2024 9:06 AM documented in this encounterBrown Memorial Hospital11-22-2024 Telephone encounter Note * Telephone Encounter - Lobito Maldonado MD - 08/16/2024 3:18 PM EST The following approved medication requests have been transmitted electronically. Requested Prescriptions Signed Prescriptions Disp Refills magnesium oxide (MAG-OX) 400 mg (241.3 mg magnesium) tablet 60 tablet 5 Sig: Take 1 tablet by mouth two times a day. Authorizing Provider: LOBITO MALDONADO tamsulosin (FLOMAX) 0.4 mg 30 capsule 5 Sig: Take 1 capsule by mouth once daily. 30 minutes after the same meal each day. Authorizing Provider: LOBITO MALDONADO MD [facility]11-[facility] Miscellaneous Notes* Telephone Encounter - Lobito Maldonado MD - 08/16/2024 3:18 PM EST The following approved medication requests have been transmitted electronically. Requested Prescriptions Signed Prescriptions Disp Refills magnesium oxide (MAG-OX) 400 mg (241.3 mg magnesium) tablet 60 tablet 5 Sig: Take 1 tablet by mouth two times a day. Authorizing Provider: LOBITO MALDONADO tamsulosin (FLOMAX) 0.4 mg 30 capsule 5 Sig: Take 1 capsule by mouth once daily. 30 minutes after the same meal each day. Authorizing Provider: LOBITO MALDONADO MD * Telephone Encounter - Liza Jennings LPN - 08/16/2024 9:22 AM EST The patient has been identified by name and date of : Yes pharmacy Caregiver verified no other encounters exist for this prescription request: Yes Caregiver confirmed with patient/requestor that no other refills are due, in the near future, with this provider at this time: Yes The last office visit in the department: 07/03/2024 Does the patient have a future office visit with this provider/department: Yes 09/30/2024 Requested Prescriptions Pending Prescriptions Disp Refills magnesium oxide (MAG-OX) 400 mg (241.3 mg magnesium) tablet 180 tablet 1 Sig: Take 1 tablet by mouth two times a day. tamsulosin (FLOMAX) 0.4 mg 30 capsule 5 Sig: Take 1 capsule by mouth once daily. 30 minutes after the same meal each day. Liza Jennings LPN August 16, 2024 9:22 AM documented in this encounterBrown Memorial Hospital11-22-2024 Telephone encounter Note * Telephone Encounter - Liza Jennings LPN - 08/16/2024 9:22 AM EST The patient has been identified by name and date of : Yes pharmacy Caregiver verified no other encounters exist for this prescription request: Yes Caregiver confirmed with patient/requestor that no other refills are due, in the near future, with this provider at this time: Yes The last office visit in the department: 07/03/2024 Does the patient have a future office visit with this provider/department: Yes 09/30/2024 Requested Prescriptions Pending Prescriptions Disp Refills magnesium oxide (MAG-OX) 400 mg (241.3 mg magnesium) tablet 180 tablet 1 Sig: Take 1 tablet by mouth two times a day. tamsulosin (FLOMAX) 0.4 mg 30 capsule 5 Sig: Take 1 capsule by mouth once daily. 30 minutes after the same meal each day. Liza Jennings LPN August 16, 2024 9:22 AM [facility]11-[facility] Telephone encounter Note* Telephone Encounter - Rhona Samayoa LPN - 07/31/2024 2:13 PM EST Patient notified of below results, 3 month follow-up scheduled. Rhona Samayoa LPN [facility]11-[facility] Miscellaneous Notes* Telephone Encounter - Rhona Samayoa LPN - 07/31/2024 2:13 PM EST Patient notified of below results, 3 month follow-up scheduled. Rhona Samayoa LPN * Telephone Encounter - Rhona Samayoa LPN - 07/31/2024 2:11 PM EST ----- Message from Lobito Maldonado MD sent at 07/31/2024 1:39 PM EST ----- Labs are okay in general. Diabetes controlled. Schedule follow up in 3 months. documented in this encounterBrown Memorial Hospital11-06-2024 Telephone encounter Note * Telephone Encounter - Rhona Samayoa LPN - 07/31/2024 2:11 PM EST ----- Message from Lobito Maldonado MD sent at 07/31/2024 1:39 PM EST ----- Labs are okay in general. Diabetes controlled. Schedule follow up in 3 months. [facility]10[facility] History of Present illness Narrative* Felipe Rosen RT(R) - 07/22/2024 10:00 AM EDT Radiology Service Progress Note PATIENT NAME: Bronson Weller DATE OF SERVICE: July 22, 2024 TIME: 9:36 AM PATIENT IDENTITY VERIFICATION COMPLETED USING TWO (2) IDENTIFIERS: Name and Date of confirmedby patient verbally. FALL SCREENING: Has the patient had 2 falls in the last year or 1 fall with injury or currently using an Ambulatory Assistive Device (Walker, Cane, Wheelchair, Crutches, etc.)? No PATIENT GENDER DATA: Male PATIENT RELEVANT IMPLANT DATA REVIEWED: Yes PATIENT PRESENTS WITH AN IMPLANTABLE OR ATTACHED TRANSPORT RN: No RADIOLOGY DEPARTMENT: General X-ray: Exam(s) Completed: Chest X-Ray PERIPHERAL IV DATA: Not applicable SIGNED BY: NALDO Benitez) July 22, 2024 9:36 AM documented in this encounterBrown [facility]10-28-2024 NoteHNO ID: [id number] Author: FELIPE ROSEN RT(R) Service: Radiology Author Type: Technologist Type: Progress Notes Filed: 07/22/2024 09:48 Note Text: Radiology Service Progress Note PATIENT NAME: Bronson Weller DATE OF SERVICE: July 22, 2024 TIME: 9:36 AM PATIENT IDENTITY VERIFICATION COMPLETED USING TWO (2) IDENTIFIERS: Name and Date of confirmed by patient verbally. FALL SCREENING: Has the patient had 2 falls in the last year or 1 fall with injury or currently using an Ambulatory Assistive Device (Walker, Cane, Wheelchair, Crutches, etc.)? No PATIENT GENDER DATA: Male PATIENT RELEVANT IMPLANT DATA REVIEWED: Yes PATIENT PRESENTS WITH AN IMPLANTABLE OR ATTACHED TRANSPORT RN: No RADIOLOGY DEPARTMENT: General X-ray: Exam(s) Completed: Chest X-Ray PERIPHERAL IV DATA: Not applicable SIGNED BY: RT Eli(R) July 22, 2024 9:36 [facility]10-24-2024 NoteHNO ID: [id number] Author: KAT GALINDO OD Service: ? Author Type: AIR BRAKES INSPECTOR Type: Progress Notes Filed: 07/18/2024 14:08 Note Text: 1. Primary open angle glaucoma (POAG) of both eyes, mild stage 2. 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 Type 2 diabetes mellitus without retinopathy (HCC) Not assessed today 4. Combined form of age-related cataract, both eyes Mild- monitor 5. Myopia, bilateral 6. Regular astigmatism, bilateral 7. Presbyopia Continue with current glasses Follow-up in 6 months for complete with OCT nerve and 24-2 OS only Kat Galindo, OD July 18, 2024 2:[address] [facility]10-24-2024 History of Present illness Narrative* Kat Galindo, OD - 07/18/2024 2:04 PM EDT 1. Primary open angle glaucoma (POAG) of both eyes, mild stage 2. 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 Type 2 diabetes mellitus without retinopathy (HCC) Not assessed today 4. Combined form of age-related cataract, both eyes Mild- monitor 5. Myopia, bilateral 6. Regular astigmatism, bilateral 7. Presbyopia Continue with current glasses Follow-up in 6 months for complete with OCT nerve and 24-2 OS only Kat Galindo, OD July 18, 2024 2:04 PM documented in this encounterBrown [facility] Hospital10-24-2024 NoteDate of Procedure 07/18/2024. Interpretation Right Eye Non-specific defect. Left Eye Arcuate defect. Interval Change Right Eye Stable. Left Eye Stable. Notes OD: stable OS: sup/temporal arcuate changes- slightly worse than previous but high FP and low reliability- plan to repeat left eye only in 6 [id number] Telephone encounter Note* Telephone Encounter - Roxie Zuñiga RN - 07/07/2024 12:17 PM EDT Patient calling with request for lab result Patient denies any new or worsening symptoms of which apromoe is not aware: Yes. Patient requesting results of viral swabs. Informed patient that COVID, RSV and Influenza were all negative. Discussed treating his symptoms with OTC medications and home care remedies. Patient verbalized an understanding. GO TO THE EMERGENCY ROOM OR CALL 911 IF: * You develop any new symptoms * Your condition worsens * You are concerned or anxious about your condition for any other reason. If you have any questions, you can call Nurse full fashioned garment knitter back. [facility]10-13-[facility]24 Miscellaneous Notes* Telephone Encounter - Roxie Zuñiga RN - 07/07/2024 12:17 PM EDT Patient calling with request for lab result Patient denies any new or worsening symptoms of which aprovider is not aware: Yes. Patient requesting results of viral swabs. Informed patient that COVID, RSV and Influenza were all negative. Discussed treating his symptoms with OTC medications and home care remedies. Patient verbalized an understanding. GO TO THE EMERGENCY ROOM OR CALL 911 IF: * You develop any new symptoms * Your condition worsens * You are concerned or anxious about your condition for any other reason. If you have any questions, you can call Nurse full fashioned garment knitter back. documented in this encounterBrown [facility] Hospital10-11-2024 Telephone encounter Note * Telephone Encounter - Tonio Jackson RN - 07/05/2024 2:05 PM EDT The patient has been identified by name and date of : Yes Caregiver verified no other encounters exist for this prescription request: Yes Caregiver confirmed with patient/requestor that no other refills are due, in the near future, with this provider at this time: Yes The last office visit in the department: 07/03/2024 Does the patient have a future office visit with this provider/department: No Visit date not found Requested Prescriptions Pending Prescriptions Disp Refills amitriptyline (ELAVIL) 25 mg tablet 30 tablet 5 Sig: Take 1 tablet by mouth daily at bedtime. aspirin, enteric coated (ASPIRIN, ENTERIC COATED) 81 mg EC tablet 30 tablet 5 Sig: Take 1 tablet by mouth once daily. Cholecalciferol, Vitamin D3, 125 mcg (5,000 unit) cap 30 capsule 5 Sig: Take 1 capsule by mouth once daily. escitalopram oxalate (LEXAPRO) 10 mg tablet 30 tablet 5 Sig: Take 1 tablet by mouth once daily. gabapentin (NEURONTIN) 300 mg capsule 60 capsule 5 Sig: Take 1 capsule by mouth two times a day for 180 days. hydroCHLOROthiazide 25 mg tablet 30 tablet 5 Sig: Take 1 tablet by mouth once daily. loratadine (CLARITIN) 10 mg tablet 30 tablet 5 Sig: Take 1 tablet by mouth once daily. losartan (COZAAR) 25 mg tablet 90 tablet 1 Sig: Take 1 tablet by mouth once daily. metFORMIN (GLUCOPHAGE) 500 mg tablet 60 tablet 5 Sig: Take 1 tablet by mouth two times a day with meals. pravastatin (PRAVACHOL) 20 mg tablet 30 tablet 5 Sig: Take 1 tablet by mouth once daily. Tonio Jackson RN July 05, 2024 2:08 PM [facility]10-[facility] Miscellaneous Notes* Telephone Encounter - Tonio Jackson RN - 07/05/2024 2:05 PM EDT The patient has been identified by name and date of : Yes Caregiver verified no other encounters exist for this prescription request: Yes Caregiver confirmed with patient/requestor that no other refills are due, in the near future, with this provider at this time: Yes The last office visit in the department: 07/03/2024 Does the patient have a future office visit with this provider/department: No Visit date not found Requested Prescriptions Pending Prescriptions Disp Refills amitriptyline (ELAVIL) 25 mg tablet 30 tablet 5 Sig: Take 1 tablet by mouth daily at bedtime. aspirin, enteric coated (ASPIRIN, ENTERIC COATED) 81 mg EC tablet 30 tablet 5 Sig: Take 1 tablet by mouth once daily. Cholecalciferol, Vitamin D3, 125 mcg (5,000 unit) cap 30 capsule 5 Sig: Take 1 capsule by mouth once daily. escitalopram oxalate (LEXAPRO) 10 mg tablet 30 tablet 5 Sig: Take 1 tablet by mouth once daily. gabapentin (NEURONTIN) 300 mg capsule 60 capsule 5 Sig: Take 1 capsule by mouth two times a day for 180 days. hydroCHLOROthiazide 25 mg tablet 30 tablet 5 Sig: Take 1 tablet by mouth once daily. loratadine (CLARITIN) 10 mg tablet 30 tablet 5 Sig: Take 1 tablet by mouth once daily. losartan (COZAAR) 25 mg tablet 90 tablet 1 Sig: Take 1 tablet by mouth once daily. metFORMIN (GLUCOPHAGE) 500 mg tablet 60 tablet 5 Sig: Take 1 tablet by mouth two times a day with meals. pravastatin (PRAVACHOL) 20 mg tablet 30 tablet 5 Sig: Take 1 tablet by mouth once daily. Tonio Jackson RN July 05, 2024 2:08 PM documented in this encounterBrown [facility] Hospital10-10-2024 Telephone encounter Note * Telephone Encounter - Rhona Samayoa LPN - 07/04/2024 1:24 PM EDT Patient notified, verbalized understanding. Rhona Samayoa LPN [facility]10-10-2024 Miscellaneous Notes* Telephone Encounter - Rhona Samayoa LPN - 07/04/2024 1:24 PM EDT Patient notified, verbalized understanding. Rhona Samayoa LPN * Telephone Encounter - Rhona Samayoa LPN - 07/04/2024 1:23 PM EDT ----- Message from Lobito Maldonado MD sent at 07/04/2024 12:47 PM EDT ----- Viral panel negative. Please encourage him to do CXR and labs ordered. documented in this encounterBrown [facility] Hospital10-10-2024 Telephone encounter Note * Telephone Encounter - Rhona Samayoa LPN - 07/04/2024 1:23 PM EDT ----- Message from Lobito Maldonado MD sent at 07/04/2024 12:47 PM EDT ----- Viral panel negative. Please encourage him to do CXR and labs ordered. [facility]10-09-2024 NoteHNO ID: [id number] Author: LOBITO MALDONADO MD Service: ? Author Type: Physician Type: Progress Notes Filed: 07/03/2024 14:48 Note Text: This note was created using Selenokhodter. Carmen Weller is a 59 year old male. He was admitted 06/19 to 06/21/24 for epigastric pain, nausea, and vomiting. Work up for pancreatitis was negative. He was assessed to have euglycemic DKA and advised to stop only empagliflozin. He was still on metformin. He developed nasal congestion, and cough productive of yellowish phlegm 5 days ago. He had been staying with his brother in [place] who was coughing. Review of Systems Constitutional: Positive for chills and fatigue. Negative for appetite change, diaphoresis and fever. HENT: Positive for congestion. Negative for mouth sores and sore throat. Eyes: Negative for visual disturbance. Respiratory: Positive for cough. Negative for chest tightness, shortness of breath and wheezing. Cardiovascular: Negative for chest pain, palpitations and leg swelling. Gastrointestinal: Negative for abdominal pain, constipation, diarrhea, nausea and vomiting. Genitourinary: Negative for difficulty urinating. Musculoskeletal: Positive for neck pain. Skin: Negative. Neurological: Negative for dizziness and headaches. 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 Social History Tobacco Use Smoking status: Former Current packs/day: 0.00 Average packs/day: 0.5 packs/day for 20.0 years (10.0 ttl pk-yrs) Types: Cigarettes Start date: 09/25/1991 Quit date: 09/25/2011 Years since quittin.7 Smokeless tobacco: Never Tobacco comments: Quit age 33 Vaping Use Vaping status: Never Used Substance Use Topics Alcohol use: Not Currently Alcohol/week: 3.0 standard drinks of alcohol Types: 3 Cans of Beer (12oz) per week Comment: quit 03/04/2022 Drug use: Never Current Outpatient Medications Medication Sig pantoprazole DR (PROTONIX) 40 mg tablet Take 1 tablet by mouth once daily. flash glucose sensor (FREESTYLE AGUSTIN 14 DAY SENSOR) kit 1 Each every 2 weeks. FREESTYLE AGUSTIN 3 SENSOR josse Apply 1 Kit to affected area as directed. Change twice monthly. Check blood glucose four or more times daily. magnesium oxide (MAG-OX) 400 mg (241.3 mg magnesium) tablet Take 1 tablet by mouth two times a day. tamsulosin (FLOMAX) 0.4 mg Take 1 capsule by mouth once daily. 30 minutes after the same meal each day. losartan (COZAAR) 25 mg tablet Take 1 tablet by mouth once daily. hydroCHLOROthiazide 25 mg tablet Take 1 tablet by mouth once daily. gabapentin (NEURONTIN) 300 mg capsule Take 1 capsule by mouth two times a day for 180 days. Cholecalciferol, Vitamin D3, 125 mcg (5,000 unit) cap Take 1 capsule by mouth once daily. metFORMIN (GLUCOPHAGE) 500 mg tablet Take 1 tablet by mouth two times a day with meals. amitriptyline (ELAVIL) 25 mg tablet Take 1 tablet by mouth daily at bedtime. escitalopram oxalate (LEXAPRO) 10 mg tablet Take 1 tablet by mouth once daily. aspirin, enteric coated (ASPIRIN, ENTERIC COATED) 81 mg EC tablet Take 1 tablet by mouth once daily. loratadine (CLARITIN) 10 mg tablet Take 1 tablet by mouth once daily. pravastatin (PRAVACHOL) 20 mg tablet Take 1 tablet by mouth once daily. ondansetron orally disintegrating (ZOFRAN ODT) 4 mg disintegrating tablet Take by mouth. latanoprost (XALATAN) 0.005 % ophthalmic solution Use 1 Drop in both eyes daily at bedtime. Blood-Glucose Meter,Continuous (FREESTYLE AGUSTIN 3 READER) [facility] Check glucose 4 or more times daily. insulin glargine (LANTUS SOLOSTAR U-100 INSULIN) 100 unit/mL (3 mL) Inject 16 Units subcutaneously daily at bedtime. ursodiol (AILYN) 250 mg tablet Take 1 tablet by mouth twice daily. Per [facility]. tohait-fknixyxx-pvzfszj (CREON) 12,000-38,000 -60,000 unit delayed release capsule [...] 10 mg tablet Take 1 tablet by m (more content not included)...[facility]10-09-2024 History of Present illness Narrative* Lobito Maldonado MD - 07/03/2024 2:38 PM EDT This note was created using Selenokhodter. Subjective Bronson Weller is a 59 year old male. He was admitted 06/19 to 06/21/24 for epigastric pain, nausea, and vomiting. Work up for pancreatitis was negative. He was assessed to have euglycemic DKA and advised to stop only empagliflozin. He was still on metformin. He developed nasal congestion, and cough productive of yellowish phlegm 5 days ago. He had been staying with his brother in [place] who was coughing. Review of Systems Constitutional: Positive for chills and fatigue. Negative for appetite change, diaphoresis and fever. HENT: Positive for congestion. Negative for mouth sores and sore throat. Eyes: Negative for visual disturbance. Respiratory: Positive for cough. Negative for chest tightness, shortness of breath and wheezing. Cardiovascular: Negative for chest pain, palpitations and leg swelling. Gastrointestinal: Negative for abdominal pain, constipation, diarrhea, nausea and vomiting. Genitourinary: Negative for difficulty urinating. Musculoskeletal: Positive for neck pain. Skin: Negative. Neurological: Negative for dizziness and headaches. 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 Social History Tobacco Use Smoking status: Former Current packs/day: 0.00 Average packs/day: 0.5 packs/day for 20.0 years (10.0 ttl pk-yrs) Types: Cigarettes Start date: 09/25/1991 Quit date: 09/25/2011 Years since quittin.7 Smokeless tobacco: Never Tobacco comments: Quit age 33 Vaping Use Vaping status: Never Used Substance Use Topics Alcohol use: Not Currently Alcohol/week: 3.0 standard drinks of alcohol Types: 3 Cans of Beer (12oz) per week Comment: quit 03/04/2022 Drug use: Never Current Outpatient Medications Medication Sig pantoprazole DR (PROTONIX) 40 mg tablet Take 1 tablet by mouth once daily. flash glucose sensor (FREESTYLE AGUSTIN 14 DAY SENSOR) kit 1 Each every 2 weeks. FREESTYLE AGUSTIN 3 SENSOR josse Apply 1 Kit to affected area as directed. Change twice monthly. Checkblood glucose four or more times daily. magnesium oxide (MAG-OX) 400 mg (241.3 mg magnesium) tablet Take 1 tablet by mouth two times a day. tamsulosin (FLOMAX) 0.4 mg Take 1 capsule by mouth once daily. 30 minutes after the same meal each day. losartan (COZAAR) 25 mg tablet Take 1 tablet by mouth once daily. hydroCHLOROthiazide 25 mg tablet Take 1 tablet by mouth once daily. gabapentin (NEURONTIN) 300 mg capsule Take 1 capsule by mouth two times a day for 180 days. Cholecalciferol, Vitamin D3, 125 mcg (5,000 unit) cap Take 1 capsule by mouth once daily. metFORMIN (GLUCOPHAGE) 500 mg tablet Take 1 tablet by mouth two times a day with meals. amitriptyline (ELAVIL) 25 mg tablet Take 1 tablet by mouth daily at bedtime. escitalopram oxalate (LEXAPRO) 10 mg tablet Take 1 tablet by mouth once daily. aspirin, enteric coated (ASPIRIN, ENTERIC COATED) 81 mg EC tablet Take 1 tablet by mouth once daily. loratadine (CLARITIN) 10 mg tablet Take 1 tablet by mouth once daily. pravastatin (PRAVACHOL) 20 mg tablet Take 1 tablet by mouth once daily. ondansetron orally disintegrating (ZOFRAN ODT) 4 mg disintegrating tablet Take by mouth. latanoprost (XALATAN) 0.005 % ophthalmic solution Use 1 Drop in both eyes daily at bedtime. Blood-Glucose Meter,Continuous (FREESTYLE AGUSTIN 3 READER) [facility] Check glucose 4 or more times daily. insulin glargine (LANTUS SOLOSTAR U-100 INSULIN) 100 unit/mL (3 mL) Inject 16 Units subcutaneously daily at bedtime. ursodiol (AILYN) 250 mg tablet Take 1 tablet by mouth twice daily. Per [facility]. tecywa-pkkehmmq-hsmjgoz (CREON) 12,000-38,000 -60,000 unit delayed release capsule [...] 1 tablet by mouth three times daily. docosahexaenoic acid/epa (FISH OIL ORAL) Take by mouth once daily. fluticasone propionate (FLONASE NASAL) Use in the nose once daily. Multivitamin capsule Take 1 capsule by mouth once daily. nitroglycerin sublingual (NITROQUICK) 0.4 mg SL tablet Dissolve 0.4 mg under the tongue every 5 minutes as needed. No current facility-administered medications for this visit. Objective BP 110/66 (BP Site: Left Arm, BP Position: Sitting, BP Cuff Size: Large Adult) Pulse 112 Temp 37.1 C (98.8 F) (Temporal) Wt 81.2 kg (179 lb 0.2 oz) SpO2 100% BMI 25.69 kg/m Physical Exam Constitutional: General: He is not in acute distress. HENT: Head: Normocephalic. Right Ear: Tympanic membrane and external ear normal. Left Ear: Tympanic membrane and external ear normal. Mouth/Throat: Mouth: Mucous membranes are moist. Pharynx: No oropharyngeal exudate or posterior oropharyngeal erythema. Eyes: Conjunctiva/sclera: Conjunctivae normal. Cardiovascular: Rate and Rhythm: Regular rhythm. Tachycardia present. Heart sounds: No murmur heard. No gallop. Pulmonary: Effort: No respiratory distress. Breath sounds: Rhonchi present. No wheezing or rales. Abdominal: General: There is no distension. Palpations: Abdomen is soft. Tenderness: There is no abdominal tenderness. Musculoskeletal: Right lower leg: No edema. Left lower leg: No edema. Lymphadenopathy: Cervical: No cervical adenopathy. Neurological: General: No focal deficit present. Mental Status: He is alert. Assessment and Plan 1. 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 Patient is still on metformin. - COMPREHENSIVE METABOLIC PANEL - HEMOGLOBIN A1C 2. Hypertension, essential - ICD9: 401.9, ICD10: I10 - Controlled - Continue medications. - COMPLETE BLOOD COUNT 3. Bronchitis - ICD9: 490, ICD10: J40 Viral. - COVID & INFLUENZA A/B & RSV PCR, ROUTINE - XR CHEST 2V FRONTAL/LAT - Continue symptom care for now. Lobito Maldonado MD documented in this encounterBrown [facility] Hospital09-27-2024 Telephone encounter Note * Telephone Encounter - Rosemarie Munoz - 06/21/2024 3:09 PM EDT Pt is in [facility] will call back another day [facility]09-27-2024 Miscellaneous Notes* Telephone Encounter - Rosemarie Munoz - 06/21/2024 3:09 PM EDT Pt is in [facility] will call back another day * Telephone Encounter - Alis Chua APRN.CNP - 06/21/2024 2:05 PM EDT Today's appointment needs rescheduled Alis Chua APRN.CNP * Telephone Encounter - Davina Li RN - 06/21/2024 1:39 PM EDT The patient has been identified by name and date of : Yes Caregiver verified no other encounters exist for this prescription request: Yes Caregiver confirmed with patient/requestor that no other refills are due, in the near future, with this provider at this time: Yes The last office visit in the department: 02/05/2024 Does the patient have a future office visit with this provider/department: No Visit date not found Requested Prescriptions Pending Prescriptions Disp Refills empagliflozin (JARDIANCE) 10 mg tablet 30 tablet 2 Sig: Take 1 tablet by mouth daily with breakfast. Davina Li RN June 21, 2024 1:40 PM documented in this encounterBrown [facility] Hospital09-27-2024 [facility] Medical Records Department [address] [place] [address] Discharge Summary 06/21/24 1423 MR#: [id number] Acct: [id number] Name: BRONSON WELLER Rep #: [id number] : 1965 59 From: Dillon Harrell MD PCP: Dr. Lobito Maldonado MD Status:DIS IN [id number] Prov[facility] Date of Admission: 06/19/24 Primary Care Physician: Dr. Lobito Maldonado MD Reason For Visit: EUGLYCEMIC DKA Diagnosis Discharge Diagnosis (1) DKA (diabetic ketoacidoses): Status: Acute Code(s): E11.10 - Type 2 diabetes mellitus with ketoacidosis without coma Medications at Discharge Home Medications amitriptyline 25 mg tablet 25 mg PO QHS depression 07/03/18 cholecalciferol (vitamin D3) 125 mcg (5,000 unit) capsule 1 cap PO DAILY supplement 11/09/18 hydrochlorothiazide 25 mg tablet 25 mg PO DAILY blood pressure/heart #30 tabs 06/05/20 gabapentin 300 mg capsule 300 mg PO BID nerve pain 10/06/20 metformin 500 mg tablet 500 mg PO BID diabetes #0 tabs 03/04/22 aspirin 81 mg tablet,delayed release 81 mg PO DAILY heart health 07/04/22 escitalopram oxalate 10 mg tablet 10 mg PO DAILY depression 07/04/22 losartan 25 mg tablet 25 mg PO DAILY blood pressure 07/04/22 ondansetron 4 mg disintegrating tablet 4 mg PO TID PRN nausea and vomiting #21 tabs 01/07/24 pantoprazole 40 mg tablet,delayed release (Protonix) 40 mg PO DAILY reflux #30 tabs 01/08/24 tamsulosin 0.4 mg capsule 0.4 mg PO DAILY@1730 prostate 30 days #30 caps 01/08/24 ursodiol 250 mg tablet 250 mg PO BID #180 TABLETS 01/29/24 rhxbsu-mzmebxza-orpkits 12,000-38,000-60,000 unit capsule,delayed rel (Creon) 2 cap PO .COMPLEX #300 caps 02/08/24 empagliflozin 10 mg tablet (Jardiance) 10 mg PO DAILY diabetes 02/25/24 insulin glargine 100 unit/mL (3 mL) subcutaneous pen (Lantus Solostar U-100 Insulin) 10 unit subcut QHS diabetes 02/25/24 latanoprost 0.005 % eye drops 1 drp ophthalmic (eye) Q eye health 02/25/24 loratadine 10 mg tablet 10 mg PO DAILY allergies 02/25/24 magnesium oxide 400 mg (241.3 mg magnesium) tablet 400 mg PO BID 02/25/24 ondansetron 4 mg disintegrating tablet 4 mg PO Q8H PRN PRN Nausea #20 tabs 02/25/24 pravastatin 20 mg tablet 20 mg PO DAILY cholesterol 02/25/24 levetiracetam 500 mg tablet 500 mg PO BID #60 tabs 04/18/24 levocarnitine 330 mg tablet 660 mg (2 x 330 mg) PO BID #120 tabs 04/18/24 amlodipine 10 mg tablet 10 mg PO DAILY blood pressure #90 tabs 05/24/24 oxycodone 5 mg tablet 5 mg PO BIDCM PRN Pain Score 4-10 3 days #10 tabs 06/21/24 Hospital Course Operations None Procedures None Summary of Care Provided Minutes Spent on Discharge: 37 Hospital Course: Per HPI: BRONSON WELLER, is a 59-year-old male history of chronic pancreatitis, fatty liver, seizure disorder, GERD, hypertension, diabetes, BPH presented to [facility] ED 06/19/2024 due to epigastric pain that began the day prior. Patient had been in his usual health until yesterday when he began to have epigastric pain radiating towards the right side of his abdomen, has been progressively worse prompting him to come to the ED. Patient is also experienced nausea but has not had significant vomiting as he took Zofran at home. Denies any diarrhea or constipation, no fevers or chills, ROS otherwise negative. Patient reports he has not drink in 2 months and has not smoked cigarettes in 9 years, denies any other substance use aside from occasional marijuana. In the ED patient had white blood cell count of 14.1, anion gap of 22 with a carbon dioxide of 13. He was initially thought that maybe he had recurrent pancreatitis however lipase only [address] abdomen without signs of pancreatitis so further workup for patient's high anion gap metabolic acidosis ordered and hospitalist contacted for admission. Patient evaluated at bedside and reports history as above, no chest pain or shortness of breath, no cough, no burning on urination or other urinary symptoms. No new cuts or rashes or bleeding, bruising, injury. Labs did result with ketones in urine and acetone in blood however with IV fluids Starting to close and tachycardia improving so we will send him to PCU with subcu insulin/push dextrose and continue IV fluids. Hospital Course: 1. Metabolic acidosis secondary to DKA in the setting of type 2 diabetes on SGLT2 inhibitor/hypophosphatemia???59-year-old male presented to the hospital with euglycemic DKA in the setting of type 2 diabetes on SGLT2 inhibitor. Will hold this on discharge until he can follow-up with his PCP, his hemoglobin is 6.9 so he should be able to tolerate withdrawal of this medication from his regimen. He is also been complaining of abdominal pain as he does have chronic pancreatitis. He did request oxycodone for a few days on discharge because of this pain. He did have significant and quick resolution of his acidosis yesterday his radha (more content not included)...[facility]09-27-2024 Telephone encounter Note* Telephone Encounter - Alis Chua APRN.CNP - 06/21/2024 2:05 PM EDT Today's appointment needs rescheduled Alis Chua APRN.EVA [facility]09-27-2024 Telephone encounter Note* Telephone Encounter - Davina Li RN - 06/21/2024 1:39 PM EDT The patient has been identified by name and date of : Yes Caregiver verified no other encounters exist for this prescription request: Yes Caregiver confirmed with patient/requestor that no other refills are due, in the near future, with this provider at this time: Yes The last office visit in the department: 02/05/2024 Does the patient have a future office visit with this provider/department: No Visit date not found Requested Prescriptions Pending Prescriptions Disp Refills empagliflozin (JARDIANCE) 10 mg tablet 30 tablet 2 Sig: Take 1 tablet by mouth daily with breakfast. Davina Li RN June 21, 2024 1:40 PM [facility]08-30-2024 Telephone encounter Note* Telephone Encounter - Kendy Amador RN - 05/24/2024 12:13 PM EDT The patient has been identified by name and date of : Yes Caregiver verified no other encounters exist for this prescription request: Yes Caregiver confirmed with patient/requestor that no other refills are due, in the near future, with this provider at this time: Yes The last office visit in the department: 02/05/2024 Does the patient have a future office visit with this provider/department: Yes 06/12/2024 Requested Prescriptions Pending Prescriptions Disp Refills pantoprazole DR (PROTONIX) 40 mg tablet 30 tablet 5 Sig: Take 1 tablet by mouth once daily. Kendy Amador RN May 24, 2024 12:13 PM [facility]08-30-2024 Miscellaneous Notes* Telephone Encounter - Kendy Amador RN - 05/24/2024 12:13 PM EDT The patient has been identified by name and date of : Yes Caregiver verified no other encounters exist for this prescription request: Yes Caregiver confirmed with patient/requestor that no other refills are due, in the near future, with this provider at this time: Yes The last office visit in the department: 02/05/2024 Does the patient have a future office visit with this provider/department: Yes 06/12/2024 Requested Prescriptions Pending Prescriptions Disp Refills pantoprazole DR (PROTONIX) 40 mg tablet 30 tablet 5 Sig: Take 1 tablet by mouth once daily. Kendy Amador RN May 24, 2024 12:13 PM documented in this encounterBrown [facility]08-[facility]24 NoteHNO ID: [id number] Author: ROSEMARIE PALACIOS LPN Service: ? Author Type: LICENSED NURSE Type: Progress Notes Filed: 04/29/2024 13:20 Note Text: Patient presents for Hepatitis B vaccine. Denies any problems at this time. Tolerated injection well. [facility] History of Present illness Narrative* Rosemarie Palacios LPN - 04/29/2024 1:18 PM EDT Patient presents for Hepatitis B vaccine. Denies any problems at this time. Tolerated injection well. Rosemarie Palacios LPN documented in this encounterBrown [facility] Hospital07-29-2024 Telephone encounter Note * Telephone Encounter - Mariella Lenz RN - 04/22/2024 8:39 AM EDT Sonia with [facility] calls to request new prescription for Agustin 3 sensors as that is what patient uses and is requesting for order to say changes twice monthly as that is how they dispense for billing. Please review and advise. Mariella Lenz RN [facility]07-29-2024 Miscellaneous Notes* Telephone Encounter - Mariella Lenz RN - 04/22/2024 8:39 AM EDT Sonia with [facility] calls to request new prescription for Agustin 3 sensors as that is what patient uses and is requesting for order to say changes twice monthly as that is how they dispense for billing. Please review and advise. Mariella Lenz RN documented in this encounterBrown [facility] Hospital07-26-2024 Telephone encounter Note * Telephone Encounter - Tonio Jackson RN - 04/19/2024 2:40 PM EDT The patient has been identified by name and date of : Yes Caregiver verified no other encounters exist for this prescription request: Yes Caregiver confirmed with patient/requestor that no other refills are due, in the near future, with this provider at this time: Yes The last office visit in the department: 02/05/2024 Does the patient have a future office visit with this provider/department: Yes 06/12/2024 Requested Prescriptions Pending Prescriptions Disp Refills flash glucose sensor (FREESTYLE AGUSTIN 14 DAY SENSOR) kit 1 Kit 5 Si Each every 2 weeks. Tonio Jackson RN April 19, 2024 2:41 PM [facility]07-26-2024 Miscellaneous Notes* Telephone Encounter - Tonio Jackson RN - 04/19/2024 2:40 PM EDT The patient has been identified by name and date of : Yes Caregiver verified no other encounters exist for this prescription request: Yes Caregiver confirmed with patient/requestor that no other refills are due, in the near future, with this provider at this time: Yes The last office visit in the department: 02/05/2024 Does the patient have a future office visit with this provider/department: Yes 06/12/2024 Requested Prescriptions Pending Prescriptions Disp Refills flash glucose sensor (FREESTYLE AGUSTIN 14 DAY SENSOR) kit 1 Kit 5 Si Each every 2 weeks. Tonio Jackson RN April 19, 2024 2:41 PM documented in this encounterBrown Memorial Hospital07-05-2024 Telephone encounter Note * Telephone Encounter - Eden Macario LPN - 03/29/2024 2:51 PM EDT The patient has been identified by name and date of : Yes Caregiver verified no other encounters exist for this prescription request: Yes Caregiver confirmed with patient/requestor that no other refills are due, in the near future, with this provider at this time: Yes The last office visit in the department: 02/05/2024 Does the patient have a future office visit with this provider/department: Yes 06/12/2024 Requested Prescriptions Pending Prescriptions Disp Refills empagliflozin (JARDIANCE) 10 mg tablet 30 tablet 2 Sig: Take 1 tablet by mouth daily with breakfast. Eden Macario LPN March 29, 2024 2:51 PM [facility]07-05-2024 Miscellaneous Notes* Telephone Encounter - Eden Macario LPN - 03/29/2024 2:51 PM EDT The patient has been identified by name and date of : Yes Caregiver verified no other encounters exist for this prescription request: Yes Caregiver confirmed with patient/requestor that no other refills are due, in the near future, with this provider at this time: Yes The last office visit in the department: 02/05/2024 Does the patient have a future office visit with this provider/department: Yes 06/12/2024 Requested Prescriptions Pending Prescriptions Disp Refills empagliflozin (JARDIANCE) 10 mg tablet 30 tablet 2 Sig: Take 1 tablet by mouth daily with breakfast. Eden Macario LPN March 29, 2024 2:51 PM documented in this encounterBrown Memorial Hospital06-12-2024 Telephone encounter Note * Telephone Encounter - Alis Chua APRN.CNP - 03/06/2024 8:52 AM EDT Refilled in a different encounter Alis Chua APRN.CNP [facility]06-12-2024 Miscellaneous Notes* Telephone Encounter - Alis Chau APRN.CNP - 03/06/2024 8:52 AM EDT Refilled in a different encounter Alis Chua APRN.CNP * Telephone Encounter - Davina Li RN - 03/06/2024 8:49 AM EDT Prescription Refill Information The patient has been identified by name and date of : Yes Caregiver verified no other encounters exist for this prescription request: Yes Caregiver confirmed with patient/requestor that no other refills are due, in the near future, with this provider at this time: Yes The last office visit in the department: 02/05/2024 Does the patient have a future office visit with this provider/department: Yes 06/12/2024 Requested Prescriptions Pending Prescriptions Disp Refills magnesium oxide (MAG-OX) 400 mg (241.3 mg magnesium) tablet 180 tablet 1 Sig: Take 1 tablet by mouth two times a day. Davina Li RN March 06, 2024 8:49 AM documented in this encounterBrown Memorial Hospital06-12-2024 Telephone encounter Note * Telephone Encounter - Davina Li RN - 03/06/2024 8:49 AM EDT Prescription Refill Information The patient has been identified by name and date of : Yes Caregiver verified no other encounters exist for this prescription request: Yes Caregiver confirmed with patient/requestor that no other refills are due, in the near future, with this provider at this time: Yes The last office visit in the department: 02/05/2024 Does the patient have a future office visit with this provider/department: Yes 06/12/2024 Requested Prescriptions Pending Prescriptions Disp Refills magnesium oxide (MAG-OX) 400 mg (241.3 mg magnesium) tablet 180 tablet 1 Sig: Take 1 tablet by mouth two times a day. Davina Li RN March 06, 2024 8:49 AM [facility]06-07-2024 Telephone encounter Note* Telephone Encounter - Chanell Ji RN - 03/01/2024 4:46 PM EDT Prescription Refill Information The patient has been identified by name and date of : Yes Caregiver verified no other encounters exist for this prescription request: Yes Caregiver confirmed with patient/requestor that no other refills are due, in the near future, with this provider at this time: Yes The last office visit in the department: 02/05/24 Does the patient have a future office visit with this provider/department: Yes Requested Prescriptions Pending Prescriptions Disp Refills magnesium oxide (MAG-OX) 400 mg (241.3 mg magnesium) tablet 180 tablet 1 Sig: Take 1 tablet by mouth two times a day. Chanell Ji RN March 01, 2024 4:46 PM [facility]06-07-2024 Miscellaneous Notes* Telephone Encounter - Chanell Ji RN - 03/01/2024 4:46 PM EDT Prescription Refill Information The patient has been identified by name and date of : Yes Caregiver verified no other encounters exist for this prescription request: Yes Caregiver confirmed with patient/requestor that no other refills are due, in the near future, with this provider at this time: Yes The last office visit in the department: 02/05/24 Does the patient have a future office visit with this provider/department: Yes Requested Prescriptions Pending Prescriptions Disp Refills magnesium oxide (MAG-OX) 400 mg (241.3 mg magnesium) tablet 180 tablet 1 Sig: Take 1 tablet by mouth two times a day. Chanell Ji RN March 01, 2024 4:46 PM documented in this encounterBrown Memorial Hospital06-04-2024 Telephone encounter Note * Telephone Encounter - Rhona Samayoa LPN - 02/27/2024 3:42 PM EDT Below results left on identified vm. Advised Patient to call [facility] for follow-up appt. Rhona Samayoa LPN [facility]06-04-2024 Miscellaneous Notes* Telephone Encounter - Rhona Samayoa LPN - 02/27/2024 3:42 PM EDT Below results left on identified vm. Advised Patient to call [facility] for follow-up appt. Rhona Samayoa LPN * Telephone Encounter - Rhona Samayoa LPN - 02/27/2024 3:39 PM EDT ----- Message from Alis Chua APRN.CNP sent at 02/27/2024 3:08 PM EDT ----- Please let the patient know the echocardiogram was okay. Recommend scheduling follow-up with his permit specialist Alis Chua APRN.MATERIALS PLANNER/PRODUCTION PLANNER documented in this encounterBrown Memorial Hospital06-04-2024 Telephone encounter Note * Telephone Encounter - Rhona Samayoa LPN - 02/27/2024 3:39 PM EDT ----- Message from Alis Chua APRN.MATERIALS PLANNER/PRODUCTION PLANNER sent at 02/27/2024 3:08 PM EDT ----- Please let the patient know the echocardiogram was okay. Recommend scheduling follow-up with his permit specialist Alis Chua APRN.MATERIALS PLANNER/PRODUCTION PLANNER [facility]05-17-2024 Telephone encounter Note* Telephone Encounter - Mariella Lenz RN - 02/09/2024 4:19 PM EDT Patient has been identified by name and date of : Yes, Mariella Lenz RN Date 02/09/2024 Time 4 pm Pharmacy phones for refill(s): Requested Prescriptions Pending Prescriptions Disp Refills tamsulosin (FLOMAX) 0.4 mg 30 capsule 3 Sig: Take 1 capsule by mouth once daily. 30 minutes after the same meal each day. Date of last office visit in primary care: 02/05/2024 Date of next office visit in primary care: 06/12/2024 Please advise. Thank you. Mariella Lenz RN. [facility]05-17-2024 Miscellaneous Notes* Telephone Encounter - Mariella Lenz RN - 02/09/2024 4:19 PM EDT Patient has been identified by name and date of : Yes, Mariella Lenz RN Date 02/09/2024 Time 4 pm Pharmacy phones for refill(s): Requested Prescriptions Pending Prescriptions Disp Refills tamsulosin (FLOMAX) 0.4 mg 30 capsule 3 Sig: Take 1 capsule by mouth once daily. 30 minutes after the same meal each day. Date of last office visit in primary care: 02/05/2024 Date of next office visit in primary care: 06/12/2024 Please advise. Thank you. Mariella Lenz RN. documented in this encounterBrown Memorial Hospital05-15-2024 Telephone encounter Note * Telephone Encounter - Liza Jennings LPN - 02/07/2024 8:18 AM EDT Phoned patient and went over results, notes from Alis Chua FIRE MANAGER with understanding. Patient uses [facility] and gets 30 day rx. [facility]05-15-2024 Miscellaneous Notes* Telephone Encounter - Liza Jennings LPN - 02/07/2024 8:18 AM EDT Phoned patient and went over results, notes from Alis Chua FIRE MANAGER with understanding. Patient uses [facility] pharmacy and gets 30 day rx. * Telephone Encounter - Liza Jennings LPN - 02/07/2024 8:15 AM EDT ----- Message from Alis Chua APRN.EVA sent at 02/07/2024 7:45 AM EDT ----- Please let the patient know his chest x-ray was normal. PSA was elevated, higher than previous. Recommend scheduling follow-up with his urologist. HgbA1c was 8.2, still not at goal but improving. Urine test indicating diabetic kidney disease. Recommend treatment with a medication called Jardiance that can improve kidney function and may also help lower blood sugars. The rest of his labs looked okay Alis Chua APRN.EVA documented in this encounterBrown Memorial Hospital05-15-2024 Telephone encounter Note * Telephone Encounter - Liza Jennings LPN - 02/07/2024 8:15 AM EDT ----- Message from Alis Chua APRN.MATERIALS PLANNER/PRODUCTION PLANNER sent at 02/07/2024 7:45 AM EDT ----- Please let the patient know his chest x-ray was normal. PSA was elevated, higher than previous. Recommend scheduling follow-up with his urologist. HgbA1c was 8.2, still not at goal but improving. Urine test indicating diabetic kidney disease. Recommend treatment with a medication called Jardiance that can improve kidney function and may also help lower blood sugars. The rest of his labs looked okay Alis Chua APRN.MATERIALS PLANNER/PRODUCTION PLANNER [facility]05-13-2024 History of Present illness Narrative* Puja Starr RT(R) - 02/05/2024 3:00 PM EDT Radiology Service Progress Note PATIENT NAME: Bronson Weller DATE OF SERVICE: February 05, 2024 TIME: 2:50 PM PATIENT IDENTITY VERIFICATION COMPLETED USING TWO (2) IDENTIFIERS: Name and Date of confirmedby patient verbally. FALL SCREENING: Has the patient had 2 falls in the last year or 1 fall with injury or currently using an Ambulatory Assistive Device (Walker, Cane, Wheelchair, Crutches, etc.)? No PATIENT GENDER DATA: Male PATIENT RELEVANT IMPLANT DATA REVIEWED: Not Applicable PATIENT PRESENTS WITH AN IMPLANTABLE OR ATTACHED TRANSPORT RN: No RADIOLOGY DEPARTMENT: General X-ray: Exam(s) Completed: Chest X-Ray PERIPHERAL IV DATA: Not applicable SIGNED BY: RT Isaiah(R) February 05, 2024 2:50 PM documented in this encounterBrown Memorial Hospital05-13-2024 Instructions* Patient Instructions* Alis Chua APRN.MATERIALS PLANNER/PRODUCTION PLANNER - 02/05/2024 1:46 PM EDT Screening schedule The following prevention plan is recommended: Shingrix Vaccine(1 of 2) Never done Behavioral Health Screening Never done HbA1C due on 01/23/2024 LDL Cholesterol due on 01/26/2024 WHAT YOU CAN DO TO PREVENT FALLS Many falls can be prevented. By making some changes, you can lower your chances of falling. Four things YOU can do to prevent falls for you* and your caregiver 1. Begin a regular exercise program Exercise is one of the most important ways to lower your chances of falling. It makes you stronger and helps you feel better. Exercises that improve balance and coordination (like Bola Chi) are the most helpful. Lack of exercise leads to weakness and increases your chances of falling. Ask your doctor or health care provider about the best type of exercise program for you. 2. Have your health care provider review your medicines Have your doctor or pharmacist review all the medicines you take, even uqza-meo-[id number] medicines. As you get older, the way medicines work in your body can change. Some medicines, or combinations of medicines, can make you sleepy or dizzy andcan cause you to fall. 3. Have your vision checked Have your eyes checked by an eye doctor at least once a year. You may be wearing the wrong glasses or have a condition like glaucoma or cataracts that limits your vision. Poor vision can increase your chances of falling. 4. Make your home safer About half of all falls happen at home. To make your home safer: Remove things you can trip over (like papers, books, clothes, and shoes) from stairs and places where you walk. Remove small throw rugs or use double-sided tape to keep the rugs from slipping. Keep items you use often in cabinets you can reach easily without using a step stool. Have grab bars put in next to your toilet and in the tub or shower. Use non-slip mats in the bathtub and on shower floors. Improve the lighting in your home. As you get older, you need brighter lights to see well. Hang light-weight curtains or shades to reduce glare. Have handrails and lights put in on all staircases. Wear shoes both inside and outside the house. Avoid going barefoot or wearing slippers. For more information, contact: Centers for Disease Control and Prevention www.cdc.gov/injury * This information may not apply if you have certain medical conditions. documented in this encounterBrown Memorial Hospital05-13-2024 History of Present illness Narrative* Alis Chua APRN.CNP - 02/05/2024 1:28 PM EDT Images from the original note were not included. Bronson Weller is a 58 year old male here for a Medicare wellness visit. Medicare Health Risk Assessment General Health Good Exercise: Minutes/Day 20 min Exercise: Days/Week 7 days Alcohol: Daily Use Alcohol: Drinks/Day Alcohol: 6 or more drinks Feel off balance Yes Concerns: Teeth/Dentures No Concerns: Sexual function No Troubled by feelings Not at all Frequency: Eating healthy diet Not at all ADLs requiring help None of the above Safety precautions in home/vehicle Yes Smoke, vape, chews tobacco No Difficulty hearing No Difficulty seeing No Current Providers Specialists: I have reviewed specialist-related care of the patient in the medical record. Current care team: Patient Care Team: Lobito Maldonado MD as PCP - General (Internal Medicine) Kat Galindo-ophthalmology Outside specialists seen: [facility], Neurology- Dr. Burnett, - neurology Medical/Family history review Reviewed and updated problem list, medical/surgical/family/social history, medications, and allergies. Opioid use review Opioid Medications (last 90 days) No data to display Depression screening Depression Screening PHQ-2 Score JOSE ELIAS-2 Total Score 02/05/2024 0 0 Depression screening tool completed and reviewed. Based on score and interview, patient is not at risk for depression. Screening tool discussed with patient, and I recommended no further interventionat this time. Cognitive screening Cognitive screening reviewed and No further action needed (score 3-5). Functional Observation Was the patient's Timed Up & Go test unsteady or ? 12 seconds? No Advance Care Planning Surrogate decision maker and/or advance care plan documented Measurements BP 106/74 Pulse 124 Resp 16 Wt 176 lb (79.8kg) SpO2 95% Vision Screening: Follows with optometry/ophthalmology Assessment/Plan Medicare annual wellness visit, subsequent (Z00.00) - Counseled on healthy diet and regular exercise - Fall avoidance information provided - Personalized prevention plan provided - Counseled patient on alcohol intake and associated health risks Additional Concerns The following concerns were also discussed with the patient: Patient was admitted to [facility] 01/06 to 01/07 for alcohol induced acute on chronic pancreatitis. He has not had a drink since discharge. Pancreatitis managed by GI Dr. Santamaria. No further episodes of abdominal pain. He voices concern today about unintentional weight loss however he has been eating much healthier and more active lately. He has been feeling more SOB with exertion and fatigued over the past month or so. Denies hemoptysis, frequent cough or wheezing. He quit smoking in 2011. Heart rate in the 120's today. He gets dizzy with position changes. Otherwise denies feeling faint, syncope, chest pain, palpitations, PND, orthopnea, edema. He last saw his permit specialist November 2022. Last echo in 2013 and EKG in 2021. He was told that he no longer needed to follow-up with cardiology unless therewere any issues. He is taking all medications as prescribed, denies side effects. Checks blood sugars twice a day, fasting average in the 120's and bedtime in the 170's. Review of Systems Constitutional: Positive for fatigue and unexpected weight change (lost 14 lbs in four months). Negative for chills, diaphoresis and fever. Gastrointestinal: Negative for abdominal pain, blood in stool, constipation, diarrhea, nausea and vomiting. Genitourinary: Negative for decreased urine volume, dysuria, frequency, hematuria and urgency. Skin: Negative for rash. Neurological: Negative for tremors, seizures, weakness and headaches. Hematological: Negative for adenopathy. Does not bruise/bleed easily. Psychiatric/Behavioral: Negative for decreased concentration, dysphoric mood, self-injury and sleepdisturbance. The patient is not nervous/anxious and is not hyperactive. BP 106/74 Pulse (!) 124 Resp 16 Wt 79.8 kg (176 lb) SpO2 95% BMI 25.25 kg/m Physical Exam Vitals reviewed. Constitutional: Appearance: Normal appearance. Neck: Thyroid: No thyroid mass, thyromegaly or thyroid tenderness. Cardiovascular: Rate and Rhythm: Regular rhythm. Tachycardia present. Pulses: Normal pulses. Heart sounds: Normal heart sounds. No murmur heard. Pulmonary: Effort: Pulmonary effort is normal. Breath sounds: Normal breath sounds. No wheezing, rhonchi or rales. Abdominal: General: There is no distension. Palpations: Abdomen is soft. There is no mass. Tenderness: There is no abdominal tenderness. Musculoskeletal: Right lower leg: No edema. Left lower leg: No edema. Lymphadenopathy: Cervical: No cervical adenopathy. Upper Body: Right upper body: No supraclavicular adenopathy. Left upper body: No supraclavicular adenopathy. Skin: General: Skin is warm and dry. Neurological: Mental Status: He is alert. Psychiatric: Mood and Affect: Mood and affect normal. Speech: Speech normal. Behavior: Behavior normal. Behavior is cooperative. Thought Content: Thought content normal. Judgment: Judgment normal. ASSESSMENT/PLAN: 1. Medicare annual wellness visit, subsequent - ICD9: V70.0, ICD10: Z00.00 (primary diagnosis) See Medicare Wellness plan 2. Shortness of breath - ICD9: 786.05, ICD10: R06.02 Evaluate further with: - XR CHEST 2V FRONTAL/LAT - ECHO - PERFLUTREN LIPID MICROSPHERES 1.1 MG/ML INJECTION IN NS 10 ML - SODIUM CHLORIDE 0.9 % (FLUSH) INJECTION SYRINGE 3. Tachycardia - ICD9: 785.0, ICD10: R00.0 Asymptomatic. - ECG COMPLETE sinus tachycardia with V rate 101. No other changes from previous in 2021. No ischemia. Evaluate further with: - THYROID STIMULATING HORMONE - ECHO - PERFLUTREN LIPID MICROSPHERES 1.1 MG/ML INJECTION IN NS 10 ML - SODIUM CHLORIDE 0.9 % (FLUSH) INJECTION SYRINGE 4. Hypertension, essential - ICD9: 401.9, ICD10: I10 - Controlled - Continue current medications - Recommend home blood pressure monitoring, to bring results to next visit - Encouraged sodium restriction, DASH or Mediterranean diet - COMPLETE BLOOD COUNT AND DIFFERENTIAL 5. Alcohol-induced chronic pancreatitis (HCC) - ICD9: 577.1, ICD10: K86.0 Stable. No alcohol in one month, continued abstinence encouraged. Follow-up with GI as instructed. 6. Type 2 diabetes mellitus without complication, with long-term current use of insulin (HCC) - ICD9: 250.00, V58.67, ICD10: E11.9, Z79.4 - Controlled per home blood sugar readings - Continue current medications - check HgbA1c today 7. Mixed hyperlipidemia - ICD9: 272.2, ICD10: E78.2 - Control undetermined, due for labs - Continue current medications - check lipids today 8. Prostate cancer (HCC) - ICD9: 185, ICD10: C61 Check PSA 9. Nonintractable generalized 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 (HCC) - ICD9: 345.90, ICD10: G40.309 Stable Alis Chua APRN.MATERIALS PLANNER/PRODUCTION PLANNER documented [facility] Telephone encounter Note * Telephone Encounter - Adore Perry LPN - 02/03/2024 10:41 AM EDT Pt has appt 02/05/24. Refills can be reviewed then. [facility]05-[facility] Miscellaneous Notes* Telephone Encounter - Adore Perry LPN - 02/03/2024 10:41 AM EDT Pt has appt 02/05/24. Refills can be reviewed then. * Telephone Encounter - Caroline Mcfadden - 02/02/2024 1:41 PM EDT Patient has been identified by name and date of : Yes, Provider [facility] phones for refill(s): Requested Prescriptions Pending Prescriptions Disp Refills losartan (COZAAR) 25 mg tablet 90 tablet 1 Sig: Take 1 tablet by mouth once daily. hydroCHLOROthiazide 25 mg tablet 30 tablet 3 Sig: Take 1 tablet by mouth once daily. gabapentin (NEURONTIN) 300 mg capsule 60 capsule 3 Sig: Take 1 capsule by mouth two times a day for 120 days. Cholecalciferol, Vitamin D3, 125 mcg (5,000 unit) cap 30 capsule 3 Sig: Take 1 capsule by mouth once daily. metFORMIN (GLUCOPHAGE) 500 mg tablet 60 tablet 3 Sig: Take 1 tablet by mouth two times a day with meals. amitriptyline (ELAVIL) 25 mg tablet 30 tablet 3 Sig: Take 1 tablet by mouth daily at bedtime. escitalopram oxalate (LEXAPRO) 10 mg tablet 30 tablet 3 Sig: Take 1 tablet by mouth once daily. aspirin, enteric coated (ASPIRIN, ENTERIC COATED) 81 mg EC tablet 30 tablet 3 Sig: Take 1 tablet by mouth once daily. loratadine (CLARITIN) 10 mg tablet 30 tablet 3 Sig: Take 1 tablet by mouth once daily. pravastatin (PRAVACHOL) 20 mg tablet 30 tablet 3 Sig: Take 1 tablet by mouth once daily. Date of last office visit in primary care: 10/24/2023 Date of next office visit in primary care: 02/05/2024 Please advise. Thank you. Caroline Jarrett. documented in this encounterBrown [facility]05-[facility] Telephone encounter Note * Telephone Encounter - Caroline Mcfadden - 02/02/2024 1:41 PM EDT Patient has been identified by name and date of : Yes, Provider [facility] phones for refill(s): Requested Prescriptions Pending Prescriptions Disp Refills losartan (COZAAR) 25 mg tablet 90 tablet 1 Sig: Take 1 tablet by mouth once daily. hydroCHLOROthiazide 25 mg tablet 30 tablet 3 Sig: Take 1 tablet by mouth once daily. gabapentin (NEURONTIN) 300 mg capsule 60 capsule 3 Sig: Take 1 capsule by mouth two times a day for 120 days. Cholecalciferol, Vitamin D3, 125 mcg (5,000 unit) cap 30 capsule 3 Sig: Take 1 capsule by mouth once daily. metFORMIN (GLUCOPHAGE) 500 mg tablet 60 tablet 3 Sig: Take 1 tablet by mouth two times a day with meals. amitriptyline (ELAVIL) 25 mg tablet 30 tablet 3 Sig: Take 1 tablet by mouth daily at bedtime. escitalopram oxalate (LEXAPRO) 10 mg tablet 30 tablet 3 Sig: Take 1 tablet by mouth once daily. aspirin, enteric coated (ASPIRIN, ENTERIC COATED) 81 mg EC tablet 30 tablet 3 Sig: Take 1 tablet by mouth once daily. loratadine (CLARITIN) 10 mg tablet 30 tablet 3 Sig: Take 1 tablet by mouth once daily. pravastatin (PRAVACHOL) 20 mg tablet 30 tablet 3 Sig: Take 1 tablet by mouth once daily. Date of last office visit in primary care: 10/24/2023 Date of next office visit in primary care: 02/05/2024 Please advise. Thank you. Caroline Jarrett. [facility]04-[facility] Instructions* Patient Instructions* Puja Pepper, SHIRA - 01/16/2024 11:50 AM EDT ASSESSMENT/PLAN: 1. Type 2 diabetes mellitus without retinopathy (HCC) - ICD9: 250.00, ICD10: E11.9 (primary diagnosis) Examination shows no ocular diabetic complications today. Discussed need for optimal diabetes control to minimize chance of ocular complications. Advise patient to immediately report worsening in status or additional symptoms. Continue yearly dilated eye examinations. 2. Primary open angle glaucoma (POAG) of both eyes, mild stage - ICD9: 365.11, 365.71, ICD10: H40.1131 3. Optic cupping of both eyes - ICD9: 377.14, ICD10: H47.233 Current Ophthalmic Meds latanoprost (XALATAN) 0.005 % ophthalmic solution Use 1 Drop in both eyes daily at bedtime. Continue to monitor and suggested checking his pressures every 6 months. May want to repeat testingmore frequently as well. 4. Combined form of age-related cataract, both eyes - ICD9: 366.19, ICD10: H25.813 Mild cataract in both eyes. Well tolerated at this time. Discussed possible future affect on daily activities to watch for. Monitor as instructed. 5. Hypertensive retinopathy, bilateral - ICD9: 362.11, ICD10: H35.033 Continue to monitor. 6. Myopia, bilateral - ICD9: 367.1, ICD10: H52.13 7. Regular astigmatism, bilateral - ICD9: 367.21, ICD10: H52.223 8. 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 Return in 6 months for Intraocular pressure check and possible testing. documented in this encounterBrown [facility]04-23-[facility]24 History of Present illness Narrative* Puja Pepper, OD - 01/16/2024 11:46 AM EDT ASSESSMENT/PLAN: 1. Type 2 diabetes mellitus without retinopathy (HCC) - ICD9: 250.00, ICD10: E11.9 (primary diagnosis) Examination shows no ocular diabetic complications today. Discussed need for optimal diabetes control to minimize chance of ocular complications. Advise patient to immediately report worsening in status or additional symptoms. Continue yearly dilated eye examinations. 2. Primary open angle glaucoma (POAG) of both eyes, mild stage - ICD9: 365.11, 365.71, ICD10: H40.1131 3. Optic cupping of both eyes - ICD9: 377.14, ICD10: H47.233 Current Ophthalmic Meds latanoprost (XALATAN) 0.005 % ophthalmic solution Use 1 Drop in both eyes daily at bedtime. Continue to monitor and suggested checking his pressures every 6 months. May want to repeat testingmore frequently as well. 4. Combined form of age-related cataract, both eyes - ICD9: 366.19, ICD10: H25.813 Mild cataract in both eyes. Well tolerated at this time. Discussed possible future affect on daily activities to watch for. Monitor as instructed. 5. Hypertensive retinopathy, bilateral - ICD9: 362.11, ICD10: H35.033 Continue to monitor. 6. Myopia, bilateral - ICD9: 367.1, ICD10: H52.13 7. Regular astigmatism, bilateral - ICD9: 367.21, ICD10: H52.223 8. 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 Return in 6 months for Intraocular pressure check and possible testing. Puja Pepper, SHIRA documented in this encounterBrown [facility]04-23-2024 NoteDate of Procedure 01/16/2024. Quality Right Eye Good. Left Eye Good. NFL Interpretation Right Eye Inferior loss, Temporal loss. Left Eye Inferior loss, Temporal loss. Ganglion Cell Layer Thickness Right Eye Diffuse loss. Left Eye Diffuse loss. Interval Change Right Eye Stable. Left Eye Worse.[id number] NoteDate of Procedure 01/16/2024. Reliability Right Eye Good. Left Eye Borderline. Interpretation Right Eye Normal. Left Eye Nasal step defect (possible early). Interval Change Right Eye Stable. Left Eye Stable.[id number] History of Present illness Narrative* Adore Perry LPN - 01/10/2024 10:35 AM EDT TRANSITION CARE MANAGEMENT (TCM) INITIAL CONTACT [employer] M[employer] Outreach Provider Action/FYI: TCM Initial contact with patient post discharge, spoke to patient. Patient identified by name and . TRANSITION CARE MANAGEMENT INITIAL OUTREACH DOCUMENTATION: 01/10/2024 Date of Outreach: Date of Discharge 01/08/2024 SUMMARY: -Pt discharged from [facility] on 01/08/24. -Admitted for: pancreatitis Do you have a hospital follow up appointment with your PCP? Appointment on 01/12/24 with pcp. Yes. Remind patient of appointment date, time, and location. If not within 14 calendar days of discharge - please reschedule accordingly. MEDICATIONS: Many patients have questions or concerns about their medications once they are home. Were you prescribed any new medications? If yes, what are those medications? Ondansetron 4mg three times a day as needed#21 Tamsulosin 0.4mg daily Oxycodone 5mg per 6 hours as needed #20 Diphenhyramine hcl 25 mg three times a day as needed for itching Pantoprazole 40 mg daily Were you told to hold any medications? No Were any of your medications discontinued? No Do you have any questions about getting or taking your medications? No Your discharge instructions/After visit Summary (AVS) are important in guiding you through the recovery process. Is there anything I might help you understand? No Do you have all the necessary equipment and supplies at home? Yes Medical records from recent hospitalization: Placed for provider to review documented in this encounterBrown [facility]04-15-2024 Discharge summary Author Mg Patel [facility] January 08, 2024 10:35am Note Date/Time January 08, 2024 10: 24am [facility] Medical Records Department [address] [place] [address] Discharge Summary 01/08/24 1022 MR#: [id number] Acct: [id number] Name: BRONSON EWLLER Rep #:[id number] : 1965 58 From: Mg Patel MD PCP: Dr. Lobito Maldonado MD Status:A DM IN Location: [place] [address] Providers Date of Admission: 01/07/24 Date of Discharge: 01/08/24 Primary Care Physician: Dr. Lobito Maldonado MD Reason For Visit: PANCREATITIS Diagnosis Discharge Diagnosis (1) Acute on chronic pancreatitis: Status: Chronic Code(s): K85.90 - Acute pancreatitis without necrosis or infection, unspecified; K86.1 - Other chronic pancreatitis Medications at Discharge Home Medications amitriptyline 25 mg tablet 25 mg PO QHS depression 07/03/18 cholecalciferol (vitamin D3) 125 mcg (5,000 unit) capsule 1 cap PO DAILY supplement 11/09/18 hydrochlorothiazide 25 mg tablet 25 mg PO DAILY blood pressure/heart #30 tabs 06/05/20 gabapentin 300 mg capsule 300 mg PO BID nerve pain 10/06/20 pravastatin 40 mg tablet 20 mg PO QHS cholesterol 02/27/22 metformin 500 mg tablet 500 mg PO BID diabetes #0 tabs 03/04/22 aspirin 81 mg tablet,delayed release 81 mg PO DAILY heart health 07/04/22 escitalopram oxalate 10 mg tablet 10 mg PO DAILY depression 07/04/22 loratadine 10 mg capsule 10 mg PO DAILY allergies 07/04/22 losartan 25 mg tablet 25 mg PO DAILY blood pressure 07/04/22 amlodipine 10 mg tablet 10 mg PO DAILY blood pressure #90 tabs 06/26/23 ursodiol 250 mg tablet 250 mg PO BID liver fibrosis #180 tabs 08/21/23 diphenhydramine HCl 25 mg capsule (Benadryl) 25 mg PO TID PRN allergy symptoms #30 caps 10/10/23 pantoprazole 40 mg tablet,delayed release (Protonix) 40 mg PO DAILY #30 tabs 10/10/23 levocarnitine 330 mg tablet 660 mg (2 x 330 mg) PO BID #120 tabs 10/24/23 ondansetron 4 mg disintegrating tablet 4 mg PO Q6H PRN nausea and vomiting #12 tabs 11/20/23 ondansetron 4 mg disintegrating tablet 4 mg PO TID PRN nausea and vomiting #21 tabs 01/07/24 diphenhydramine HCl 25 mg capsule (Benadryl) 25 mg PO TID PRN itching #20 caps 01/08/24 oxycodone 5 mg capsule 5 mg PO Q6H PRN pain 5 days #20 caps 01/08/24 pantoprazole 40 mg tablet,delayed release (Protonix) 40 mg PO DAILY #30 tabs 01/08/24 tamsulosin 0.4 mg capsule 0.4 mg PO DAILY@1730 30 days #30 caps 01/08/24 Hospital Course Summary of Care Provided Minutes Spent on Discharge: 32 Hospital Course: Patient is a 58-year-old with history of chronic alcohol dependence presented with abdominal pain and assessment of acute on chronic pancreatitis made 1. Acute recurrent pancreatitis ? Admitted to regular nursing floor for symptom management 2. Chronic alcohol dependence ? Patient admitted to having had alcohol 2 days prior to his admission he was counseled on cessation he was offered to undergo medical stabilization with phenobarb taper he declined 3. Diabetes mellitus type 2 I did continue home medications 4. Seizure disorder ? Patient is on gabapentin discontinued 5. Hypertension - Blood pressure controlled, home medications continued with dose adjustment as needed 6. Depression ? Patient is on amitriptyline as well as escitalopram did continue Physical Exam Narrative GENERAL: cooperative HEENT: Atraumatic; normocephalic EYES; Anicteric, Normal Conjunctiva NECK; supple, normal thyroid, RESPIRATORY: Diminished to auscultation CARDIOVASCULAR: Regular S1 S2, GI: soft, normoactive bowel sounds, : No Renal angle tenderness; EXTREMITIES: No edema, no clubbing, MUSCULOSKELETAL: no muscle wasting NEURO: Awake; no lateralizing signs. SKIN: No Rash PSYCH; Flat affect Weight / BMI Weight Weight: 84.2 kg Body Mass Index (BMI) 26.6 ABG / Lab / Microbiology Data 01/08/24 04:36 01/08/24 04:36 Laboratory: Laboratory Results - last 24 hr 01/07/24 11:21: POC Glucose 318 H 01/07/24 16:20: POC Glucose 242 H 01/07/24 20:35: POC Glucose 233 H 01/08/24 04:36: WBC 12.1 H, RBC 3.94 L, Hgb 12.4 L, Hct 36.2 L, MCV 91.9, MCH 31.5, MCHC 34.3, RDW Std Deviation 40.5, RDW Coeff of Armin 12.0, Plt Count 161, MPV 9.9, Immature Gran % (Auto) 0.600, Neut % (Auto) 76.7 H, Lymph % (Auto) 14.6L, [place] % (Auto) 8.0, Eos % (Auto) 0.0, Baso % (Auto) 0.1, Absolute Neuts (auto)9.3 H, Absolute Lymphs (auto) 1.77, Nucleated RBC % 0, Sodium 136, Potassium 4.2, Chloride 105, Carbon Dioxide 24.0, Anion Gap 7, BUN 10, Creatinine 0.80, Estim Creat Clear Calc 103.92, Est GFR (MDRD) Af Amer 126, Est GFR (MDRD) Non-Af105, BUN/Creatinine Ratio 12.4, Glucose 183 H, Calcium 8.7, Total Bilirubin 0.90, AST 22, ALT 18, Alkaline Phosphatase 61, Total Protein 7.3, Albumin 4.1, Globulin 3.2, Albumin/Globulin Ratio 1.3 01/08/24 06:10: POC Glucose 190 H D/C Instructions Discharge Diet: 1800 Calorie Control Diet Discharge Activity: May Not Drive Call your doctor if you observe: Fever of 101 or Higher, Shortness of breath, Fainting spells and Chest pain Meaningful Use Info Meaningful Use Diagnoses (Choose all that apply): None applicable Discharge Plan Admission Admit Date/Time: 01/07/24 07:40 Attending Provider: Mg Patel Primary Care Provider: Lobito Maldonado Consulting Providers: Daiana Banda Discharge Orders/Prescriptions Prescriptions: New ondansetron 4 mg tablet,disintegrating 4 mg PO TID PRN (Reason: nausea and vomiting) Qty: 21 0RF tamsulosin 0.4 mg Capsule 0.4 mg PO DAILY@1730 30 Days Qty: 30 0RF oxycodone 5 mg capsule 5 mg PO Q6H PRN (Reason: pain) 5 Days Qty: 20 0RF diphenhydramine HCl [Benadryl] 25 mg capsule 25 mg PO TID PRN (Reason: itching) Qty: 20 0RF pantoprazole [Protonix] 40 mg tablet,delayed release (DR/EC) 40 mg PO DAILY Qty: 30 0RF Continued amitriptyline 25 mg tablet 25 mg PO QHS gabapentin 300 mg capsule 300 mg PO BID levocarnitine 330 mg tablet 660 mg PO BID Qty: 120 7RF Rx Instructions: must administer with a meal/food cholecalciferol (vitamin D3) 5,000 capsule 1 cap PO DAILY pravastatin 40 mg Tablet 20 mg PO QHS metformin 500 MG tablet 500 mg PO BID Qty: 0 0RF Hold Instructions: Hold for 3 days aspirin 81 mg Tablet,Delayed Release (Dr/Ec) 81 mg PO DAILY losartan 25 mg tablet 25 mg PO DAILY escitalopram oxalate 10 mg tablet 10 mg PO DAILY loratadine 10 MG capsule 10 mg PO DAILY pantoprazole [Protonix] 40 mg tablet,delayed release (DR/EC) 40 mg PO DAILY Qty: 30 0RF diphenhydramine HCl [Benadryl] 25 mg capsule 25 mg PO TID PRN (Reason: allergy symptoms) Qty: 30 0RF ondansetron 4 mg tablet,disintegrating 4 mg PO Q6H PRN (Reason: nausea and vomiting) Qty: 12 0RF hydrochlorothiazide 25 mg tablet 25 mg PO DAILY Qty: 30 11RF Hold Instructions: Hold for 3 days and start with 12.5 mg, half tablet daily. amlodipine 10 mg tablet 10 mg PO DAILY Qty: 90 3RF ursodiol 250 mg tablet 250 mg PO BID Qty: 180 1RF Referrals / Follow Up: Lobito Maldonado MD [Primary Care Provider] - In 1 Week Disposition Disposition (needs filled in before D/C Order can be placed): Home, Self Care Charges/Coding Visit Charges Inpatient E&M: 39437 Disch Hosp >30min 01/08/24 1035 <Electronically signed by Mg Patel MD> Cosigner Signature (if applicable): CC: Dr. Mg Patel MD; Dr. Lobito Maldonado MD~ Signed [facility] Work Phone: [phone] 371-273504-14-2024 History and physical note Author Daiana [facility] January 07, 2024 8:27am Note Date/Time January 07, 2024 8:2 7am [facility] Medical Records Department [address] [place] [address] H&P Exam - Hospitalist 01/07/24 0815 MR#: [id number] Acct: [id number] Name: BRONSON WELLER Rep #:[id number] : 1965 58 From: Daiana Banda DO PCP: Dr. Lobito Maldonado MD Status:A DM IN Location: [place] [id number] HPI - General General Date of Admission: 01/07/24 Date of Service: 01/07/24 Chief Complaint: Abdominal pain HPI Narrative BRONSON SMART, is a 58 M who presents to the emergency room at [facility] with complaints of mid abdominal pain that started last night. Patienthas had history of pancreatitis in the past, he was drinking alcohol. Patient is vague about how much he drinks on a daily basis. Patient's alcohol level is elevated when he was seen in the emergency room today. Workup in the emergency room included a CBC which showed an elevated white blood cell count, patient's lipase was not available due to lab difficulties, patient CT of the abdomen and pelvis showed evidence of pancreatitis which appeared to be mild. Patient was given IV Dilaudid in the emergency room for analgesia, he will be [facility] to [facility] for acute recurrent pancreatitis, patient states to this examiner that he has never been through DTs before, I will place the patient on Ativan as needed for anxiety during his hospital stay. He told nursing that he does not want to go through detox program ice here in the hospital. FORMERLY [facility], [facility] Medical History Alcohol abuse Anxiety and depression Cancer Constipation Diabetes Essential (primary) hypertension Family history of cerebral aneurysm Former tobacco use Gastric ulcer GERD (gastroesophageal reflux disease) GI bleed Glaucoma Hyperlipidemia Liver fibrosis Myocardial infarct Neck pain Polyneuropathy PSA elevation PTSD (post-traumatic stress disorder) Seizure disorder Stroke/cerebrovascular accident TIA (transient ischemic attack) Vision loss of left eye Vision loss of right eye Home Medications amitriptyline 25 mg tablet 25 mg PO QHS depression 07/03/18 [History Last Taken 11/27/22] cholecalciferol (vitamin D3) 125 mcg (5,000 unit) capsule 1 cap PO DAILY supplement 11/09/18 [History Last Taken 11/28/22] hydrochlorothiazide 25 mg tablet 25 mg PO DAILY blood pressure/heart #30 tabs 06/05/20 [Rx Last Taken 11/28/22] gabapentin 300 mg capsule 300 mg PO BID nerve pain 10/06/20 [History Last Taken 11/28/22] pravastatin 40 mg tablet 20 mg PO QHS cholesterol 02/27/22 [History Last Taken 11/27/22] metformin 500 mg tablet 500 mg PO BID diabetes #0 tabs 03/04/22 [Rx Last Taken 11/28/22] aspirin 81 mg tablet,delayed release 81 mg PO DAILY heart health 07/04/22 [History Last Taken 11/28/22] escitalopram oxalate 10 mg tablet 10 mg PO DAILY depression 07/04/22 [History Last Taken 11/28/22] loratadine 10 mg capsule 10 mg PO DAILY allergies 07/04/22 [History Last Taken 11/28/22] losartan 25 mg tablet 25 mg PO DAILY blood pressure 07/04/22 [History Last Taken 11/28/22] amlodipine 10 mg tablet 10 mg PO DAILY blood pressure #90 tabs 06/26/23 [Rx Last Taken Unknown] ursodiol 250 mg tablet 250 mg PO BID liver fibrosis #180 tabs 08/21/23 [Rx Last Taken Unknown] diphenhydramine HCl 25 mg capsule (Benadryl) 25 mg PO TID PRN allergy symptoms #30 caps 10/10/23 [Rx Last Taken Unknown] pantoprazole 40 mg tablet,delayed release (Protonix) 40 mg PO DAILY #30 tabs 10/10/23 [Rx Last Taken Unknown] levocarnitine 330 mg tablet 660 mg (2 x 330 mg) PO BID #120 tabs 10/24/23 [Rx Last Taken Unknown] oxycodone-acetaminophen 5 mg-325 mg tablet (Percocet) 1 tab PO Q8H PRN pain 3 days #10 tabs 11/07/23 [Rx Last Taken Unknown] ondansetron 4 mg disintegrating tablet 4 mg PO Q6H PRN nausea and vomiting #12 tabs 11/20/23 [Rx Last Taken Unknown] oxycodone-acetaminophen 5 mg-325 mg tablet (Percocet) 1 tab PO Q6H PRN pain 3 days #12 tabs 11/20/23 [Rx Last Taken Unknown] ondansetron 4 mg disintegrating tablet 4 mg PO TID PRN nausea and vomiting #21 tabs 01/07/24 [Rx Last Taken Unknown] oxycodone-acetaminophen 5 mg-325 mg tablet (Percocet) 1 tab PO Q6H PRN pain 3 days #12 tabs 01/07/24 [Rx Last Taken Unknown] Allergy/AdvReac Type Severity Reaction Status Date / Time Iodinated Contrast Media Allergy Mild Rash Verified 11/20/23 11:13 hydromorphone [From Dilaudid] Allergy Itching Verified 11/20/23 11:13 lisinopril Allergy Angioedema Verified 11/20/23 11:13 cyclobenzaprine AdvReac Severe Skin Verified 11/20/23 11:13 crawling hydrocodone bitartrate AdvReac Itching Verified 11/20/23 11:13 [From Vicodin] morphine AdvReac Itching Verified 11/20/23 11:13 tramadol AdvReac Itching Verified 11/20/23 11:13 Family History Mother Heart disease Sister Cerebral aneurysm Father Diabetes Kidney disease Anxiety and depression Surgical History History of cholecystectomy (12/2013) History of left heart catheterization (10/31/11) Social History household members: none Smoking Status: Former smoker Tobacco: How many years used: 7 Electronic Cigarette Use: not used alcohol intake: former details: 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 substance use type: does not use caffeine: No robbin/tenriism: Tenriism seatbelt use: always ROS Constitutional Constitutional: Denies anorexia, change in weight, fever(s), night sweats or weakness Eyes Eyes: Denies blurry vision, change in vision, discharge from eye(s) or eye pain Cardiovascular Cardiovascular: Denies chest pain, claudication, edema or palpitations Respiratory/Chest Respiratory/Chest: Denies cough, hemoptysis, shortness of breath at rest or shortness of breath with exertion Gastrointestinal Gastrointestinal: Reports abdominal pain; Denies constipation, diarrhea, hematemesis, hematochezia, melena, nausea or vomiting Genitourinary Genitourinary: Denies dysuria, hematuria, urinary frequency, urinary hesitancy, urinary incontinence or urinary urgency Musculoskeletal Musculoskeletal: Denies back pain, joint pain, joint stiffness, joint swelling, myalgias or neck pain Neurologic Neurologic: Denies abnormal gait, abnormal speech, dizziness, focal weakness, headache(s), loss of vision, numbness, other visual disturbances, paresthesias, syncope or tingling Psychiatric Psychiatric: Denies anxiety, cognitive impairment, depression, irritability, mood swings or suicidal ideation Endocrine Endocrinology: Denies change in body appearance, cold intolerance, excessive sweating, heat intolerance, polydipsia or polyuria Hematologic/Lymphatic Hematologic/Lymphatic: Denies none, anemia, easy bleeding, easy bruising or lymphadenopathy Allergic/Immunologic Allergic/Immunologic: Denies rhinitis, urticaria, eczemia or asthma Vital Signs Vital Signs Vital Signs: 01/07/24 02:54 01/07/24 05:00 01/07/24 07:00 Temperature 97.7 F L Temperature Source Oral Pulse Rate 103 H 90 99 Respiratory Rate 20 H 18 18 Blood Pressure 151/83 H 137/95 H 137/88 H Blood Pressure Mean 105 109 104 Pulse Ox 96 98 Oxygen Delivery Method Room Air 01/07/24 08:01 Temperature 98.9 F Temperature Source Pulse Rate 94 Respiratory Rate 18 Blood Pressure 130/81 H Blood Pressure Mean 97 Pulse Ox 97 Oxygen Delivery Method Weight Weight: 86.1 kg Body Mass Index (BMI) 28.0 Physical Exam Const alert, oriented x3 and healthy appearing Constitutional Narrative: Patient appears in moderate abdominal pain General Appearance: cooperative, well kempt and well developed Orientation / Consciousness: awake, oriented to person, oriented to place and oriented to time HEENT normocephalic, head/scalp atraumatic and moist oral mucous membranes Eyes PERRL, EOMs intact bilaterally and conjunctivae normal Neck supple, no JVD, thyroid normal and no carotid bruits General: trachea midline Resp normal respiratory effort, no retractions, no use of accessory muscles and clearto auscultation bilaterally Auscultation: Negative for rales, rhonchi or wheezes Cardio regular rate, regular rhythm, S1 normal heart sound, S2 normal heart sound, no murmurs, no rub and no gallops GI non-tender GI Narrative: Abdomen is nondistended, it is tender across the entire upper abdomen, no rebound tenderness was noted Auscultation: hypoactive bowel sounds Extremity no clubbing, cyanosis or edema Skin no rashes or lesions noted General Skin Exam: no breakdown Neuro oriented x3, CN's II-XII intact bilaterally, no focal motor deficits and no sensory deficits noted Sensorium / Orientation: awake, alert, oriented to person, oriented to place andoriented to time Speech: speech normal Psych affect normal Results Lab / Micro Data 01/07/24 03:35 01/07/24 03:35 Labs: Laboratory Results - last 24 hr 01/07/24 03:35: WBC 15.5 H, RBC 4.24 L, Hgb 13.5, Hct 38.6 L, MCV 91.0, MCH 31.8, MCHC 35.0, RDW Std Deviation 39.8, RDW Coeff of Armin 11.9, Plt Count 191, MPV 9.3, Immature Gran % (Auto) 0.400, Neut % (Auto) 68.3, Lymph % (Auto) 24.4, [place] % (Auto) 5.2, Eos % (Auto) 1.4, Baso % (Auto) 0.3, Absolute Neuts (auto) 10.6 H, Absolute Lymphs (auto) 3.77, Nucleated RBC % 0, Sodium 127 L, Potassium 3.2 L, Chloride 93 L, Carbon Dioxide 19.0 L, Anion Gap 15, BUN 13, Creatinine 1.18, Estim Creat Clear Calc 74.18, Est GFR (MDRD) Af Amer 81, Est GFR (MDRD) Non-Af 67, BUN/Creatinine Ratio 11.0, Glucose 262 H, Calcium 8.9, Total Bilirubin 0.50, Direct Bilirubin 0.15, AST 18, ALT 19, Alkaline Phosphatase 63, Total Protein 7.5, Albumin 4.0, Globulin 3.5, Lipase , Ethyl Alcohol 240.0 Imaging Radiology Impression Abdomen/Pelvis CT 01/07/24 05:10 IMPRESSION: 1. Mild acute pancreatitis. No acute fluid collections or visible pancreas necrosis. 2. Cholecystectomy. Minimally prominent common duct, stable.. 3. Mild prostatomegaly. Electronically Signed: Jacklyn Dougherty MD at 8:00 EDT , Assessment & Plan Assessment/Plan (1) Acute on chronic pancreatitis: PLAN: Plan 1. Acute recurrent pancreatitis-patient will be admitted to [facility], IV fluids will be administered, IV analgesics will be given, labs will be monitored #2 type 2 diabetes-blood sugars will be monitored, patient states he is taking 14 units of Lantus nightly, I will leave this off due to his clear liquid status, sliding scale insulin will be instituted #3 essential hypertension-patient will remain on his blood pressure medications except for hydrochlorothiazide, blood pressure will be monitored, adjustments will be made in his medications as needed #4 chronic alcohol abuse-again patient does not want to go through any detox program here, I will place him on Ativan 2 mg every 6 hours as needed for anxiety, I do not feel at this time he needs CIWA scores, I have notified nursing that if things change I will institute CIWA scores. #5 seizure disorder-patient is currently on gabapentin, I do not see any other seizure medications listed on his med list. He will continue gabapentin. Total clinical time spent by myself addressing patient's medical issues, reviewing all of his data, and collaborating with patient's care team: 75 minutes Charges/Coding Visit Charges Inpatient E&M: 02497 Init Hosp L3 01/07/24 0827 <Electronically signed by Daiana Banda DO> Cosigner Signature (if applicable): CC: Dr. Daiana Banda DO; Dr. Lobito Maldonado MD~ Signed [facility] Work Phone: [phone]) 625-448004-14-2024 Discharge summary Author Phillip Aguiar [facility] January 07, 2024 7:38am Note Date/Time January 07, 2024 3:3 5am [facility] Medical Records Department [address] [place] [address] Emergency Department Summary 01/07/24 MR#: [id number] Acct: [id number] Name: BRONSON WELLER Rep #:[id number] : 1965 58 From: Phillip Aguiar DO PCP: Dr. Lobito Maldonado MD Status:R EG ER Location: ED HPI History of Present Illness Chief Complaint: Abd Pain Informant: patient Narrative Narrative: Patient is a 58-year-old male with past medical history of hypertension hyperlipidemia epilepsy [id number] diabetes and chronic pancreatitis. He states that on Monday as the weather was nice he was out working in his yard. He states after finishing his work he decided to have 3 beers. He states this was more mid afternoon around 3 or 4 PM. He reports he was doing well but this evening began with upper abdominal pain and bouts of nausea and vomiting that felt similar nature to his previous issues of pancreatitis and secondary to this called EMS to bring him in for evaluation. [facility] Medical History Alcohol abuse Anxiety and depression Cancer Constipation Diabetes Essential (primary) hypertension Family history of cerebral aneurysm Former tobacco use Gastric ulcer GERD (gastroesophageal reflux disease) GI bleed Glaucoma Hyperlipidemia Liver fibrosis Myocardial infarct Neck pain Polyneuropathy PSA elevation PTSD (post-traumatic stress disorder) Seizure disorder Stroke/cerebrovascular accident TIA (transient ischemic attack) Vision loss of left eye Vision loss of right eye Home Medications amitriptyline 25 mg tablet 25 mg PO QHS depression 07/03/18 [History Last Taken 11/27/22] cholecalciferol (vitamin D3) 125 mcg (5,000 unit) capsule 1 cap PO DAILY supplement 11/09/18 [History Last Taken 11/28/22] hydrochlorothiazide 25 mg tablet 25 mg PO DAILY blood pressure/heart #30 tabs 06/05/20 [Rx Last Taken 11/28/22] gabapentin 300 mg capsule 300 mg PO BID nerve pain 10/06/20 [History Last Taken 11/28/22] pravastatin 40 mg tablet 20 mg PO QHS cholesterol 02/27/22 [History Last Taken 11/27/22] metformin 500 mg tablet 500 mg PO BID diabetes #0 tabs 03/04/22 [Rx Last Taken 11/28/22] aspirin 81 mg tablet,delayed release 81 mg PO DAILY heart health 07/04/22 [History Last Taken 11/28/22] escitalopram oxalate 10 mg tablet 10 mg PO DAILY depression 07/04/22 [History Last Taken 11/28/22] loratadine 10 mg capsule 10 mg PO DAILY allergies 07/04/22 [History Last Taken 11/28/22] losartan 25 mg tablet 25 mg PO DAILY blood pressure 07/04/22 [History Last Taken 11/28/22] amlodipine 10 mg tablet 10 mg PO DAILY blood pressure #90 tabs 06/26/23 [Rx Last Taken Unknown] ursodiol 250 mg tablet 250 mg PO BID liver fibrosis #180 tabs 08/21/23 [Rx Last Taken Unknown] diphenhydramine HCl 25 mg capsule (Benadryl) 25 mg PO TID PRN allergy symptoms #30 caps 10/10/23 [Rx Last Taken Unknown] pantoprazole 40 mg tablet,delayed release (Protonix) 40 mg PO DAILY #30 tabs 10/10/23 [Rx Last Taken Unknown] levocarnitine 330 mg tablet 660 mg (2 x 330 mg) PO BID #120 tabs 10/24/23 [Rx Last Taken Unknown] oxycodone-acetaminophen 5 mg-325 mg tablet (Percocet) 1 tab PO Q8H PRN pain 3 days #10 tabs 11/07/23 [Rx Last Taken Unknown] ondansetron 4 mg disintegrating tablet 4 mg PO Q6H PRN nausea and vomiting #12 tabs 11/20/23 [Rx Last Taken Unknown] oxycodone-acetaminophen 5 mg-325 mg tablet (Percocet) 1 tab PO Q6H PRN pain 3 days #12 tabs 11/20/23 [Rx Last Taken Unknown] ondansetron 4 mg disintegrating tablet 4 mg PO TID PRN nausea and vomiting #21 tabs 01/07/24 [Rx Last Taken Unknown] oxycodone-acetaminophen 5 mg-325 mg tablet (Percocet) 1 tab PO Q6H PRN pain 3 days #12 tabs 01/07/24 [Rx Last Taken Unknown] Allergy/AdvReac Type Severity Reaction Status Date / Time Iodinated Contrast Media Allergy Mild Rash Verified 11/20/23 11:13 hydromorphone [From Dilaudid] Allergy Itching Verified 11/20/23 11:13 lisinopril Allergy Angioedema Verified 11/20/23 11:13 cyclobenzaprine AdvReac Severe Skin Verified 11/20/23 11:13 crawling hydrocodone bitartrate AdvReac Itching Verified 11/20/23 11:13 [From Vicodin] morphine AdvReac Itching Verified 11/20/23 11:13 tramadol AdvReac Itching Verified 11/20/23 11:13 Family History Mother Heart disease Sister Cerebral aneurysm Father Diabetes Kidney disease Anxiety and depression Surgical History History of cholecystectomy (12/2013) History of left heart catheterization (10/31/11) Social History household members: none Smoking Status: Former smoker Tobacco: How many years used: 7 Electronic Cigarette Use: not used alcohol intake: former details: 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 substance use type: does not use caffeine: No robbin/tenriism: Tenriism seatbelt use: always ROS ROS ED Constitutional Constitutional ED: Denies chills or fever(s) ENT ENT ED: Denies sore throat Cardiovascular Cardiovascular: Denies chest pain Respiratory/Chest Respiratory/Chest: Denies cough or dyspnea Gastrointestinal Gastrointestinal: Reports abdominal pain, nausea and vomiting; Denies diarrhea Genitourinary Genitourinary ED: Denies dysuria Musculoskeletal Musculoskeletal: Denies myalgias Integumentary Denies rash Neurologic Neurologic: Denies headache(s) Hematologic/Lymphatic Hematologic/Lymphatic: Denies easy bleeding or easy bruising EXAM Physical Exam Const Vital Signs: 01/07/24 02:54 01/07/24 05:00 01/07/24 07:00 Temperature 97.7 F L Temperature Source Oral Pulse Rate 103 H 90 99 Respiratory Rate 20 H 18 18 Blood Pressure 151/83 H 137/95 H 137/88 H Blood Pressure Mean 105 109 104 Pulse Ox 96 98 Oxygen Delivery Method Room Air Positive well nourished and well developed General Appearance ED: well developed; Negative for pallor HEENT Reports moist mucous membranes HEENT Narrative: No tongue or lip swelling no oral lesions no airway edema or compromise No secondary findings in the posterior pharynx to suggest infection Eyes PERRL and EOMs intact bilaterally General Eye ED: Negative for scleral icterus Neck supple Resp normal respiratory effort and clear to auscultation bilaterally Cardio regular rate and regular rhythm Rate: other Other Details: Radial and carotid pulses are equal and symmetric GI non-distended GI Narrative: Abdomen is soft and nondistended with normal active bowel sounds. Patient has pain on palpation in the midepigastric region without voluntary guarding or rigidity. No pulsatile mass or fluid wave Auscultation: normoactive bowel sounds Palpation: soft Back/Spine no CVA tenderness Extremity normal to inspection Neuro oriented x3, CN's II-XII intact bilaterally and no sensory deficits noted Sensorium / Orientation: alert Motor Exam: strength 5/5 throughout Psych mental status grossly normal Skin no rashes or lesions noted General Skin Exam: Negative for jaundice or pallor MDM MDM MDM Narrative Medical decision making narrative: Patient arrived to the ER mildly hypertensive otherwise with stable vitals. He reported abdominal pain and has a history of recurrent pancreatitis. Differential diagnosis is for pancreatitis versus biliary colic versus acute cholecystitis versus gastritis versus alcohol intoxication. Basic lab work was obtained which showed mildly elevated white count at 15 but chart review revealsthat his white count is repeatedly elevated. Patient's liver enzymes are normalgoing against biliary colic or acute cholecystitis. His alcohol level is greatly elevated at 240 consistent with alcohol abuse and intoxication which is most likely led to his symptoms. The patient's lipase cannot be obtained at this time as lab has reagents. I discussed obtaining a CT scan of his abdomen based on his slightly elevated white count and pain check for pancreaticinflammation the patient does not want one obtained at this time. Patient was hydrated and treated with Dilaudid and Benadryl and Zofran for his pain and nausea. On reevaluation he states symptoms have improved slightly but not to the extent that he is used to after being treated for a pancreatic flare. Therefore based on the elevation to his white blood cell count and report the pain is not responding as he normally does a CT scan of the abdomen pelvis with IV contrast was obtained. CT scan showed inflammation around the pancreas consistent with acute on chronic pancreatitis. At this time based on the patient's increased alcohol use and the fact he now has CT scan findings of inflammation on the pancreas and persistent pain I do feel he would benefit frominpatient treatment. Therefore the case was discussed with medicine on-call andthey do agree to accept the patient at this time History & Record Review Discussion w/independent historian: Patient Lab Data Attestation: I reviewed the patient's lab results. Labs: Laboratory Results - last 24 hr 01/07/24 03:35 WBC 15.5 H RBC 4.24 L Hgb 13.5 Hct 38.6 L MCV 91.0 MCH 31.8 MCHC 35.0 RDW Std Deviation 39.8 RDW Coeff of Armin 11.9 Plt Count 191 MPV 9.3 Immature Gran % (Auto) 0.400 Neut % (Auto) 68.3 Lymph % (Auto) 24.4 [place] % (Auto) 5.2 Eos % (Auto) 1.4 Baso % (Auto) 0.3 Absolute Neuts (auto) 10.6 H Absolute Lymphs (auto) 3.77 Nucleated RBC % 0 Sodium 127 L Potassium 3.2 L Chloride 93 L Carbon Dioxide 19.0 L Anion Gap 15 BUN 13 Creatinine 1.18 Estim Creat Clear Calc 74.18 Est GFR (MDRD) Af Amer 81 Est GFR (MDRD) Non-Af 67 BUN/Creatinine Ratio 11.0 Glucose 262 H Calcium 8.9 Total Bilirubin 0.50 Direct Bilirubin 0.15 AST 18 ALT 19 Alkaline Phosphatase 63 Total Protein 7.5 Albumin 4.0 Globulin 3.5 Lipase Ethyl Alcohol 240.0 Management Discussion w/another healthcare provider: Hospitalist Discharge Plan Triage Chief Complaint: Abd Pain ED Provider: Phillip Aguiar Dx/Rx/DC Orders Clinical Impression: Alcohol abuse, Acute on chronic pancreatitis, Essential (primary) hypertension,Hyponatremia Prescriptions: New ondansetron 4 mg tablet,disintegrating 4 mg PO TID PRN (Reason: nausea and vomiting) Qty: 21 0RF oxycodone-acetaminophen [Percocet] 5-325 mg tablet 1 tab PO Q6H PRN (Reason: pain) 3 Days Qty: 12 0RF No Action amitriptyline 25 mg tablet 25 mg PO QHS gabapentin 300 mg capsule 300 mg PO BID levocarnitine 330 mg tablet 660 mg PO BID Qty: 120 7RF Rx Instructions: must administer with a meal/food cholecalciferol (vitamin D3) 5,000 capsule 1 cap PO DAILY pravastatin 40 mg Tablet 20 mg PO QHS metformin 500 MG tablet 500 mg PO BID Qty: 0 0RF Hold Instructions: Hold for 3 days aspirin 81 mg Tablet,Delayed Release (Dr/Ec) 81 mg PO DAILY losartan 25 mg tablet 25 mg PO DAILY escitalopram oxalate 10 mg tablet 10 mg PO DAILY loratadine 10 MG capsule 10 mg PO DAILY pantoprazole [Protonix] 40 mg tablet,delayed release (DR/EC) 40 mg PO DAILY Qty: 30 0RF diphenhydramine HCl [Benadryl] 25 mg capsule 25 mg PO TID PRN (Reason: allergy symptoms) Qty: 30 0RF oxycodone-acetaminophen [Percocet] 5-325 mg tablet 1 tab PO Q8H PRN (Reason: pain) 3 Days Qty: 10 0RF oxycodone-acetaminophen [Percocet] 5-325 mg tablet 1 tab PO Q6H PRN (Reason: pain) 3 Days Qty: 12 0RF ondansetron 4 mg tablet,disintegrating 4 mg PO Q6H PRN (Reason: nausea and vomiting) Qty: 12 0RF hydrochlorothiazide 25 mg tablet 25 mg PO DAILY Qty: 30 11RF Hold Instructions: Hold for 3 days and start with 12.5 mg, half tablet daily. amlodipine 10 mg tablet 10 mg PO DAILY Qty: 90 3RF ursodiol 250 mg tablet 250 mg PO BID Qty: 180 1RF Primary Care Provider: Lobito Maldonado Referrals: Lobito Maldonado MD [Primary Care Provider] - Disposition Disposition: Acute Care Hospital [facility] What to do if you have Problems For any increased pain, shortness of breath, bleeding, nausea or vomiting, chestpain, or any unexpected problems, contact your Primary Care Provider. Call [facility] ([phone]) or report to the closest Emergency Room. Call 911 if necessary. 01/07/24 0738 <Electronically signed by Phillip Aguiar DO> Cosigner Signature (if applicable): CC: Dr. Lobito Maldonado MD ~ Signed [facility] Work Phone: [phone] Discharge summary [facility] January 07, 2024 7:38am Note Date/Time January 07, 2024 3:3 5am [facility] Medical Records Department [address] [place] [address] Emergency Department Summary 01/07/24 MR#: [id number] Acct: [id number] Name: BRONSON WELLER Rep #:[id number] : 1965 58 From: Phillip Aguiar DO PCP: Dr. Lobito Maldonado MD Status:R EG ER Location: ED HPI History of Present Illness Chief Complaint: Abd Pain Informant: patient Narrative Narrative: Patient is a 58-year-old male with past medical history of hypertension hyperlipidemia epilepsy [id number] diabetes and chronic pancreatitis. He states that on Monday as the weather was nice he was out working in his yard. He states after finishing his work he decided to have 3 beers. He states this was more mid afternoon around 3 or 4 PM. He reports he was doing well but this evening began with upper abdominal pain and bouts of nausea and vomiting that felt similar nature to his previous issues of pancreatitis and secondary to this called EMS to bring him in for evaluation. [facility] Medical History Alcohol abuse Anxiety and depression Cancer Constipation Diabetes Essential (primary) hypertension Family history of cerebral aneurysm Former tobacco use Gastric ulcer GERD (gastroesophageal reflux disease) GI bleed Glaucoma Hyperlipidemia Liver fibrosis Myocardial infarct Neck pain Polyneuropathy PSA elevation PTSD (post-traumatic stress disorder) Seizure disorder Stroke/cerebrovascular accident TIA (transient ischemic attack) Vision loss of left eye Vision loss of right eye Home Medications amitriptyline 25 mg tablet 25 mg PO QHS depression 07/03/18 [History Last Taken 11/27/22] cholecalciferol (vitamin D3) 125 mcg (5,000 unit) capsule 1 cap PO DAILY supplement 11/09/18 [History Last Taken 11/28/22] hydrochlorothiazide 25 mg tablet 25 mg PO DAILY blood pressure/heart #30 tabs 06/05/20 [Rx Last Taken 11/28/22] gabapentin 300 mg capsule 300 mg PO BID nerve pain 10/06/20 [History Last Taken 11/28/22] pravastatin 40 mg tablet 20 mg PO QHS cholesterol 02/27/22 [History Last Taken 11/27/22] metformin 500 mg tablet 500 mg PO BID diabetes #0 tabs 03/04/22 [Rx Last Taken 11/28/22] aspirin 81 mg tablet,delayed release 81 mg PO DAILY heart health 07/04/22 [History Last Taken 11/28/22] escitalopram oxalate 10 mg tablet 10 mg PO DAILY depression 07/04/22 [History Last Taken 11/28/22] loratadine 10 mg capsule 10 mg PO DAILY allergies 07/04/22 [History Last Taken 11/28/22] losartan 25 mg tablet 25 mg PO DAILY blood pressure 07/04/22 [History Last Taken 11/28/22] amlodipine 10 mg tablet 10 mg PO DAILY blood pressure #90 tabs 06/26/23 [Rx Last Taken Unknown] ursodiol 250 mg tablet 250 mg PO BID liver fibrosis #180 tabs 08/21/23 [Rx Last Taken Unknown] diphenhydramine HCl 25 mg capsule (Benadryl) 25 mg PO TID PRN allergy symptoms #30 caps 10/10/23 [Rx Last Taken Unknown] pantoprazole 40 mg tablet,delayed release (Protonix) 40 mg PO DAILY #30 tabs 10/10/23 [Rx Last Taken Unknown] levocarnitine 330 mg tablet 660 mg (2 x 330 mg) PO BID #120 tabs 10/24/23 [Rx Last Taken Unknown] oxycodone-acetaminophen 5 mg-325 mg tablet (Percocet) 1 tab PO Q8H PRN pain 3 days #10 tabs 11/07/23 [Rx Last Taken Unknown] ondansetron 4 mg disintegrating tablet 4 mg PO Q6H PRN nausea and vomiting #12 tabs 11/20/23 [Rx Last Taken Unknown] oxycodone-acetaminophen 5 mg-325 mg tablet (Percocet) 1 tab PO Q6H PRN pain 3 days #12 tabs 11/20/23 [Rx Last Taken Unknown] ondansetron 4 mg disintegrating tablet 4 mg PO TID PRN nausea and vomiting #21 tabs 01/07/24 [Rx Last Taken Unknown] oxycodone-acetaminophen 5 mg-325 mg tablet (Percocet) 1 tab PO Q6H PRN pain 3 days #12 tabs 01/07/24 [Rx Last Taken Unknown] Allergy/AdvReac Type Severity Reaction Status Date / Time Iodinated Contrast Media Allergy Mild Rash Verified 11/20/23 11:13 hydromorphone [From Dilaudid] Allergy Itching Verified 11/20/23 11:13 lisinopril Allergy Angioedema Verified 11/20/23 11:13 cyclobenzaprine AdvReac Severe Skin Verified 11/20/23 11:13 crawling hydrocodone bitartrate AdvReac Itching Verified 11/20/23 11:13 [From Vicodin] morphine AdvReac Itching Verified 11/20/23 11:13 tramadol AdvReac Itching Verified 11/20/23 11:13 Family History Mother Heart disease Sister Cerebral aneurysm Father Diabetes Kidney disease Anxiety and depression Surgical History History of cholecystectomy (12/2013) History of left heart catheterization (10/31/11) Social History household members: none Smoking Status: Former smoker Tobacco: How many years used: 7 Electronic Cigarette Use: not used alcohol intake: former details: 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 substance use type: does not use caffeine: No robbin/tenriism: Tenriism seatbelt use: always ROS ROS ED Constitutional Constitutional ED: Denies chills or fever(s) ENT ENT ED: Denies sore throat Cardiovascular Cardiovascular: Denies chest pain Respiratory/Chest Respiratory/Chest: Denies cough or dyspnea Gastrointestinal Gastrointestinal: Reports abdominal pain, nausea and vomiting; Denies diarrhea Genitourinary Genitourinary ED: Denies dysuria Musculoskeletal Musculoskeletal: Denies myalgias Integumentary Denies rash Neurologic Neurologic: Denies headache(s) Hematologic/Lymphatic Hematologic/Lymphatic: Denies easy bleeding or easy bruising EXAM Physical Exam Const Vital Signs: 01/07/24 02:54 01/07/24 05:00 01/07/24 07:00 Temperature 97.7 F L Temperature Source Oral Pulse Rate 103 H 90 99 Respiratory Rate 20 H 18 18 Blood Pressure 151/83 H 137/95 H 137/88 H Blood Pressure Mean 105 109 104 Pulse Ox 96 98 Oxygen Delivery Method Room Air Positive well nourished and well developed General Appearance ED: well developed; Negative for pallor HEENT Reports moist mucous membranes HEENT Narrative: No tongue or lip swelling no oral lesions no airway edema or compromise No secondary findings in the posterior pharynx to suggest infection Eyes PERRL and EOMs intact bilaterally General Eye ED: Negative for scleral icterus Neck supple Resp normal respiratory effort and clear to auscultation bilaterally Cardio regular rate and regular rhythm Rate: other Other Details: Radial and carotid pulses are equal and symmetric GI non-distended GI Narrative: Abdomen is soft and nondistended with normal active bowel sounds. Patient has pain on palpation in the midepigastric region without voluntary guarding or rigidity. No pulsatile mass or fluid wave Auscultation: normoactive bowel sounds Palpation: soft Back/Spine no CVA tenderness Extremity normal to inspection Neuro oriented x3, CN's II-XII intact bilaterally and no sensory deficits noted Sensorium / Orientation: alert Motor Exam: strength 5/5 throughout Psych mental status grossly normal Skin no rashes or lesions noted General Skin Exam: Negative for jaundice or pallor MDM MDM MDM Narrative Medical decision making narrative: Patient arrived to the ER mildly hypertensive otherwise with stable vitals. He reported abdominal pain and has a history of recurrent pancreatitis. Differential diagnosis is for pancreatitis versus biliary colic versus acute cholecystitis versus gastritis versus alcohol intoxication. Basic lab work was obtained which showed mildly elevated white count at 15 but chart review revealsthat his white count is repeatedly elevated. Patient's liver enzymes are normalgoing against biliary colic or acute cholecystitis. His alcohol level is greatly elevated at 240 consistent with alcohol abuse and intoxication which is most likely led to his symptoms. The patient's lipase cannot be obtained at this time as lab has reagents. I discussed obtaining a CT scan of his abdomen based on his slightly elevated white count and pain check for pancreaticinflammation the patient does not want one obtained at this time. Patient was hydrated and treated with Dilaudid and Benadryl and Zofran for his pain and nausea. On reevaluation he states symptoms have improved slightly but not to the extent that he is used to after being treated for a pancreatic flare. Therefore based on the elevation to his white blood cell count and report the pain is not responding as he normally does a CT scan of the abdomen pelvis with IV contrast was obtained. CT scan showed inflammation around the pancreas consistent with acute on chronic pancreatitis. At this time based on the patient's increased alcohol use and the fact he now has CT scan findings of inflammation on the pancreas and persistent pain I do feel he would benefit frominpatient treatment. Therefore the case was discussed with medicine on-call andthey do agree to accept the patient at this time History & Record Review Discussion w/independent historian: Patient Lab Data Attestation: I reviewed the patient's lab results. Labs: Laboratory Results - last 24 hr 01/07/24 03:35 WBC 15.5 H RBC 4.24 L Hgb 13.5 Hct 38.6 L MCV 91.0 MCH 31.8 MCHC 35.0 RDW Std Deviation 39.8 RDW Coeff of Armin 11.9 Plt Count 191 MPV 9.3 Immature Gran % (Auto) 0.400 Neut % (Auto) 68.3 Lymph % (Auto) 24.4 [place] % (Auto) 5.2 Eos % (Auto) 1.4 Baso % (Auto) 0.3 Absolute Neuts (auto) 10.6 H Absolute Lymphs (auto) 3.77 Nucleated RBC % 0 Sodium 127 L Potassium 3.2 L Chloride 93 L Carbon Dioxide 19.0 L Anion Gap 15 BUN 13 Creatinine 1.18 Estim Creat Clear Calc 74.18 Est GFR (MDRD) Af Amer 81 Est GFR (MDRD) Non-Af 67 BUN/Creatinine Ratio 11.0 Glucose 262 H Calcium 8.9 Total Bilirubin 0.50 Direct Bilirubin 0.15 AST 18 ALT 19 Alkaline Phosphatase 63 Total Protein 7.5 Albumin 4.0 Globulin 3.5 Lipase Ethyl Alcohol 240.0 Management Discussion w/another healthcare provider: Hospitalist Discharge Plan Triage Chief Complaint: Abd Pain ED Provider: Phillip Aguiar Dx/Rx/DC Orders Clinical Impression: Alcohol abuse, Acute on chronic pancreatitis, Essential (primary) hypertension,Hyponatremia Prescriptions: New ondansetron 4 mg tablet,disintegrating 4 mg PO TID PRN (Reason: nausea and vomiting) Qty: 21 0RF oxycodone-acetaminophen [Percocet] 5-325 mg tablet 1 tab PO Q6H PRN (Reason: pain) 3 Days Qty: 12 0RF No Action amitriptyline 25 mg tablet 25 mg PO QHS gabapentin 300 mg capsule 300 mg PO BID levocarnitine 330 mg tablet 660 mg PO BID Qty: 120 7RF Rx Instructions: must administer with a meal/food cholecalciferol (vitamin D3) 5,000 capsule 1 cap PO DAILY pravastatin 40 mg Tablet 20 mg PO QHS metformin 500 MG tablet 500 mg PO BID Qty: 0 0RF Hold Instructions: Hold for 3 days aspirin 81 mg Tablet,Delayed Release (Dr/Ec) 81 mg PO DAILY losartan 25 mg tablet 25 mg PO DAILY escitalopram oxalate 10 mg tablet 10 mg PO DAILY loratadine 10 MG capsule 10 mg PO DAILY pantoprazole [Protonix] 40 mg tablet,delayed release (DR/EC) 40 mg PO DAILY Qty: 30 0RF diphenhydramine HCl [Benadryl] 25 mg capsule 25 mg PO TID PRN (Reason: allergy symptoms) Qty: 30 0RF oxycodone-acetaminophen [Percocet] 5-325 mg tablet 1 tab PO Q8H PRN (Reason: pain) 3 Days Qty: 10 0RF oxycodone-acetaminophen [Percocet] 5-325 mg tablet 1 tab PO Q6H PRN (Reason: pain) 3 Days Qty: 12 0RF ondansetron 4 mg tablet,disintegrating 4 mg PO Q6H PRN (Reason: nausea and vomiting) Qty: 12 0RF hydrochlorothiazide 25 mg tablet 25 mg PO DAILY Qty: 30 11RF Hold Instructions: Hold for 3 days and start with 12.5 mg, half tablet daily. amlodipine 10 mg tablet 10 mg PO DAILY Qty: 90 3RF ursodiol 250 mg tablet 250 mg PO BID Qty: 180 1RF Primary Care Provider: Lobito Maldonado Referrals: Lobito Maldonado MD [Primary Care Provider] - Disposition Disposition: Acute Care Hospital [facility] What to do if you have Problems For any increased pain, shortness of breath, bleeding, nausea or vomiting, chestpain, or any unexpected problems, contact your Primary Care Provider. Call [facility] ([phone]) or report to the closest Emergency Room. Call 911 if necessary. 01/07/24 0738 <Electronically signed by Phillip Aguiar DO> Cosigner Signature (if applicable): CC: Dr. Lobito Maldonado MD ~ Signed [facility] Work Phone: [phone] Telephone encounter Note* Telephone Encounter - Vanessa Horan OA - 12/28/2023 9:51 AM EDT Can someone please call this patient and get him scheduled for an eye exam with Dr.Teresa Pepper here in [place]. Patient is aware and is expecting a call to get scheduled. Thank you, BRITNEY Manjarrez [facility]04-04-2024 Miscellaneous Notes* Telephone Encounter - Vanessa Horan OA - 12/28/2023 9:51 AM EDT Can someone please call this patient and get him scheduled for an eye exam with Dr.Teresa Pepper here in [place]. Patient is aware and is expecting a call to get scheduled. Thank you, BRITNEY Manjarrez documented in this encounterBrown [facility] Hospital03-04-2024 History of Present illness Narrative* Rosemaire Palacios LPN - 11/27/2023 1:29 PM EST Patient presents for Hepatitis B vaccine. Denies any problems at this time. Tolerated injection well. Rosemarie Palacios LPN documented in this encounterBrown [facility] Hospital02-22-2024 Miscellaneous Notes* Telephone Encounter - Natacha Cooper - 11/16/2023 1:37 PM EST Rx's faxed to [facility] . Natacha Cooper * Telephone Encounter - Natacha Cooper - 11/16/2023 1:33 PM EST Patient informed monitor was ordered. Requesting it to be sent to [facility] on file. Natacha Cooper * Telephone Encounter - Lobito Maldonado MD - 11/16/2023 12:59 PM EST Patient's request for medication is as follows: Requested Prescriptions Signed Prescriptions Disp Refills Blood-Glucose Meter,Continuous (FREESTYLE AGUSTIN 3 READER) misc 1 Each 0 Sig: Check glucose 4 or more times daily. Authorizing Provider: LOBITO MALDONADO flash glucose sensor (FREESTYLE AGUSTIN 14 DAY SENSOR) kit 1 Kit 5 Si Each every 2 weeks. Authorizing Provider: LOBITO MALDONADO Prescription(s) printed as above. Please process accordingly. * Telephone Encounter - Davina Li RN - 11/14/2023 1:26 PM EST Estela from [facility] calls and reports that patient was seen in ER on 11/08 for abdominal pain. Patient was given medications and then sent home. Estela also reports that patient is requesting a continuous glucose monitor. Estela asking if a prescription can be faxed over to [facility] prior authorization at [phone]? Please review and advise, Davina Li RN documented in this encounterBrown [facility] Hospital12-05-2023 Miscellaneous Notes* Telephone Encounter - Eden Macario LPN - 08/29/2023 9:22 AM EST Patient has been identified by name and date of : Yes, Provider Dr. Maldonado Date 08/29/23 Time 9:23 am Pharmacy phones [...] you. Eden Macario LPN. documented in this encounterBrown Memorial Hospital11-27-2023 Miscellaneous Notes* Telephone Encounter - Mariella Lenz RN - 08/21/2023 2:35 PM EST Patient has been identified by name and [...] you. Mariella Lenz RN. documented in this encounterBrown Memorial Hospital11-15-2023 Discharge summary Author Neftali Dickson [facility] August 09, 2023 5:30am Note Date/Time August 09, 2023 3:33am [facility] Medical Records Department [address] [place] [address] Emergency Department Summary 08/09/23 MR#: [id number] Acct: [id number] Name: BRONSON WELLER Rep #:[id number] : 1965 58 From: Neftali Amezquita PCP: Dr. Lobito Maldonado MD Status:R EG ER Location: ED HPI History of Present Illness Chief Complaint: Abd Pain PFSH PFS Medical History Alcohol abuse Anxiety and depression Cancer Constipation Diabetes Essential (primary) hypertension Family history of cerebral aneurysm Former tobacco use Gastric ulcer GERD (gastroesophageal reflux disease) GI bleed Glaucoma Hyperlipidemia Liver fibrosis Myocardial infarct Neck pain Polyneuropathy PSA elevation PTSD (post-traumatic stress disorder) Seizure disorder Stroke/cerebrovascular accident TIA (transient ischemic attack) Vision loss of left eye Vision loss of right eye Home Medications amitriptyline 25 mg tablet 25 mg PO QHS depression 07/03/18 [History Last Taken 11/27/22] cholecalciferol (vitamin D3) 125 mcg (5,000 unit) capsule 1 cap PO DAILY supplement 11/09/18 [History Last Taken 11/28/22] hydrochlorothiazide 25 mg tablet 25 mg PO DAILY blood pressure/heart #30 tabs 06/05/20 [Rx Last Taken 11/28/22] gabapentin 300 mg capsule 300 mg PO BID nerve pain 10/06/20 [History Last Taken 11/28/22] pantoprazole 40 mg tablet,delayed release 40 mg PO DAILY gerd 02/27/22 [History Last Taken 11/28/22] pravastatin 40 mg tablet 20 mg PO QHS cholesterol 02/27/22 [History Last Taken 11/27/22] metformin 500 mg tablet 500 mg PO BID diabetes #0 tabs 03/04/22 [Rx Last Taken 11/28/22] aspirin 81 mg tablet,delayed release 81 mg PO DAILY heart health 07/04/22 [History Last Taken 11/28/22] escitalopram oxalate 10 mg tablet 10 mg PO DAILY depression 07/04/22 [History Last Taken 11/28/22] loratadine 10 mg capsule 10 mg PO DAILY allergies 07/04/22 [History Last Taken 11/28/22] losartan 25 mg tablet 25 mg PO DAILY blood pressure 07/04/22 [History Last Taken 11/28/22] levetiracetam 500 mg tablet 500 mg PO BID seizures #60 tabs 02/02/23 [Rx Last Taken Unknown] levocarnitine 330 mg tablet 330 mg PO BID #60 tabs 02/02/23 [Rx Last Taken Unknown] ursodiol 250 mg tablet 250 mg PO BID liver fibrosis #180 tabs 03/09/23 [Rx Last Taken Unknown] ondansetron 4 mg disintegrating tablet 4 mg PO Q8H PRN PRN Nausea #10 tabs 04/30/23 [Rx Last Taken Unknown] promethazine 25 mg tablet 25 mg PO Q6H PRN PRN Nausea #10 TABLETS 04/30/23 [Rx Last Taken Unknown] amoxicillin 875 mg-potassium clavulanate 125 mg tablet 1 tab PO BID #14 tabs 05/04/23 [Rx Last Taken Unknown] ondansetron 4 mg disintegrating tablet 4 mg PO Q8H PRN PRN Nausea #10 tabs 05/04/23 [Rx Last Taken Unknown] oxycodone 5 mg tablet 5 mg PO Q6H PRN pain 1 day #4 tabs 05/04/23 [Rx Last Taken Unknown] amlodipine 10 mg tablet 10 mg PO DAILY blood pressure #90 tabs 06/26/23 [Rx Last Taken Unknown] ondansetron 4 mg disintegrating tablet 4 mg PO Q8H PRN PRN Nausea 3 days #9 tabs110/09/22 [Rx Last Taken Unknown] oxycodone 5 mg capsule 5 mg PO Q6H PRN pain 3 days #12 caps 08/09/23 [Rx Last Taken Unknown] Allergy/AdvReac Type Severity Reaction Status Date / Time Iodinated Contrast Media Allergy Mild Rash Verified 08/09/23 04:35 hydromorphone [From Dilaudid] Allergy Itching Verified 08/09/23 03:27 lisinopril Allergy Angioedema Verified 08/09/23 03:27 cyclobenzaprine AdvReac Severe Skin Verified 08/09/23 03:27 crawling hydrocodone bitartrate AdvReac Itching Verified 08/09/23 03:27 [From Vicodin] morphine AdvReac Itching Verified 08/09/23 03:27 tramadol AdvReac Itching Verified 08/09/23 03:27 Family History Mother Heart disease Sister Cerebral aneurysm Father Diabetes Kidney disease Anxiety and depression Surgical History History of cholecystectomy (12/2013) History of left heart catheterization (10/31/11) Social History household members: none Smoking Status: Former smoker Tobacco: How many years used: 7 Electronic Cigarette Use: not used alcohol intake: former details: 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 substance use type: does not use caffeine: No robbin/tenriism: Tenriism seatbelt use: always EXAM Physical Exam Const Vital Signs: 08/09/23 03:27 Temperature 97.3 F L Temperature Source Temporal Pulse Rate 98 Respiratory Rate 12 Blood Pressure 148/97 H Blood Pressure Mean 114 Pulse Ox 99 Oxygen Delivery Method Room Air MDM MDM MDM Narrative Medical decision making narrative: HISTORY OF PRESENT ILLNESS: 58-year-old male here with abdominal pain concern for pancreatitis. Notes diffuse abdominal pain. Notes he drink alcohol yesterday. REVIEW OF SYSTEMS: Pertinent positives: Abdominal pain Pertinent negatives: Chest pain, shortness of breath PHYSICAL EXAM: Nursing triage notes reviewed, Vital signs reviewed Constitutional: please see mdm HENT: MMM Eyes: Pupils equal round and reactive to light, Extraocular muscles intact Neck: No stridor, no JVD, full neck ROM Lungs: Clear to auscultation, No wheezing or rales. No increased work of breathing, no conversational dyspnea, no accessory muscle use, no nasal flaring. No respiratory distress noted Heart: Regular rate and rhythm, No murmurs, No rubs and No gallops, 2+ distal pulses (radial, femoral, posterior tibial) in all extremities Abdomen: Soft, diffuse tenderness rigidity, rebound or guarding, no obvious peritoneal signs, no palpable pulsatile abdominal masses, no auscultated abdominal bruit : No CVAT Extremities: No edema Neuro: No focal neurological deficits, cranial nerves II through XII intact, 5/5strength in all extremities. Intact sensation to light touch in all extremities,2+ reflexes bilateral patella tendons. Normal gait. No ataxia. Skin: No rash or lesions noted MEDICAL DECISION MAKING: Chief Complaint: Abdominal pain External records reviewed: CT scan of the abdomen pelvis from 05/03/2023 shows No evidence of acute surgical process Factors affecting care: Pancreatitis, abdominal pain, hyponatremia, hypertension Social determinants of health: History of alcohol abuse History obtained from others: none Consults: none MDM Narrative: Was hemodynamically stable, afebrile, nontoxic-appearing. Abdominal exam with diffuse TTP. I considered the following differential diagnosis: Pancreatitis, hepatobiliary obstruction, GERD, obstruction, perforation ALL IMAGES (IF OBTAINED) HAVE BEEN PERSONALLY REVIEWED AND INTERPRETED BY MYSELF. BMP without evidence of significant electrolyte abnormalities, no anion gap, no acute kidney injury. Lipase elevated consistent with pancreatic inflammation LFTs show no evidence of hepatobiliary pathology. CBC without leukocytosis, severe anemia, no thrombocytopenia. CT scan of the abdomen pelvis shows evidence of pancreatitis. No evidence of acute surgical pathology EKG with normal sinus rhythm, left ax deviation, no STEMI Troponin is negative, no evidence of myocardial ischemia The synthesis Of the patient's history, physical exam, labs images are consistent with acute pancreatitis exacerbated by alcohol use. Low suspicion for gallstone pancreatitis given the patient had his gallbladder removed in the past. Will give oral oxycodone, Zofran, Tylenol ibuprofen instructions, strict return precautions. The patient and/or family, caregivers express understanding. The patient and/orfamily, caregivers agrees with the plan. Shared decision making: I will have a discussion with the patient and or visitors regarding risk/benefits of further testing or admission. They will be made aware of of the risk/benefits inherent in this decision they will be given the opportunity tovoice understanding. Total critical care time today provided was at least 0 minutes. This excludes separately billable procedures. Critical care time (if documented) is secondary to the patient having high probability of clinically significant/life threatening deterioration in the patient's condition which required my urgent intervention. Impression: 1. Abdominal pain 2. Acute pancreatitis 3. History of alcohol abuse Dispo: Discharge Lab Data Attestation: I reviewed the patient's lab results. Labs: Laboratory Results - last 24 hr 08/09/23 03:36 WBC 9.8 RBC 4.26 L Hgb 13.3 Hct 39.0 L MCV 91.5 MCH 31.2 MCHC 34.1 RDW Std Deviation 41.3 RDW Coeff of Armin 12.5 Plt Count 180 MPV 9.7 Immature Gran % (Auto) 0.400 Neut % (Auto) 50.2 Lymph % (Auto) 39.7 [place] % (Auto) 6.6 Eos % (Auto) 2.4 Baso % (Auto) 0.7 Absolute Neuts (auto) 4.9 Absolute Lymphs (auto) 3.91 Nucleated RBC % 0 Sodium 134 L Potassium 3.6 Chloride 101 Carbon Dioxide 23.0 Anion Gap 10 BUN 11 Creatinine 0.96 Estim Creat Clear Calc 86.60 Est GFR (MDRD) Af Amer 104 Est GFR (MDRD) Non-Af 86 BUN/Creatinine Ratio 11.5 Glucose 222 H Calcium 8.8 Total Bilirubin 0.50 Direct Bilirubin 0.15 AST 11 L ALT 17 Alkaline Phosphatase 69 Troponin I High Sens 13 Total Protein 7.4 Albumin 3.8 Globulin 3.6 Lipase 102 H Radiography Diagnostic Testing: Clinical Impression(s) from Imaging Studies Abdomen/Pelvis CT 08/09/23 03:37 IMPRESSION: There is a subtle hazy appearance of the fat adjacent to the tail the pancreas raising concern for the possibility of acute pancreatitis. Recommend Correlation with laboratory values. Otherwise there is a decompressed appearance of the stomach with a thickened appearance of the stomach wall similar to the prior studies suggesting gastritis. Interval greater tortuosity of the midline mesentery with a few nonspecific subcentimeter lymph nodes. Constipation. Overdistended bladder recommend voiding or catheterization. Benign-appearing stable left renal cyst. Mild hepatic steatosis stable hepatic cyst measuring 8 mm. No appendicitis. The gallbladder is not visualized and has likely been surgically removed.. Electronically Signed: Nae Angulo MD at 5:14 EST , ADDENDUM: 08/09/23 0524 IMPRESSION: There is a subtle hazy appearance of the fat adjacent to the tail the pancreas raising concern for the possibility of acute pancreatitis. Recommend Correlation with laboratory values. Otherwise there is a decompressed appearance of the stomach with a thickened appearance of the stomach wall similar to the prior studies suggesting gastritis. Interval greater tortuosity of the midline mesentery with a few nonspecific subcentimeter lymph nodes. Constipation. Overdistended bladder recommend voiding or catheterization. Benign-appearing stable left renal cyst. Mild hepatic steatosis stable hepatic cyst measuring 8 mm. No appendicitis. The gallbladder is not visualized and has likely been surgically removed.. N.B. : The above Results were Read Back by Nae Angulo MD to Neftali Dickson MD, and understanding confirmed on 08/09/2023 05:17:37 (ET). Electronically Signed: Nae Angulo MD at 5:14 EST , Discharge Plan Triage Chief Complaint: Abd Pain ED Provider: Neftail Dickson Dx/Rx/DC Orders Instructions: Pancreatitis Acute Dc Prescriptions: New oxycodone 5 mg capsule 5 mg PO Q6H PRN (Reason: pain) 3 Days Qty: 12 0RF ondansetron 4 mg tablet,disintegrating 4 mg PO Q8H PRN PRN (Reason: Nausea) 3 Days Qty: 9 0RF No Action amitriptyline 25 mg tablet 25 mg PO QHS gabapentin 300 mg capsule 300 mg PO BID levetiracetam 500 mg tablet 500 mg PO BID Qty: 60 6RF levocarnitine 330 mg tablet 330 mg PO BID Qty: 60 6RF Rx Instructions: must administer with a meal/food cholecalciferol (vitamin D3) 5,000 capsule 1 cap PO DAILY pantoprazole 40 mg Tablet,Delayed Release (Dr/Ec) 40 mg PO DAILY pravastatin 40 mg Tablet 20 mg PO QHS metformin 500 MG tablet 500 mg PO BID Qty: 0 0RF Hold Instructions: Hold for 3 days aspirin 81 mg Tablet,Delayed Release (Dr/Ec) 81 mg PO DAILY losartan 25 mg tablet 25 mg PO DAILY escitalopram oxalate 10 mg tablet 10 mg PO DAILY loratadine 10 MG capsule 10 mg PO DAILY promethazine [promethazine] 25 mg tablet 25 mg PO Q6H PRN PRN (Reason: Nausea) Qty: 10 0RF ondansetron [ondansetron] 4 mg tablet,disintegrating 4 mg PO Q8H PRN PRN (Reason: Nausea) Qty: 10 0RF amoxicillin-pot clavulanate 875-125 mg tablet 1 tab PO BID Qty: 14 0RF ondansetron 4 mg tablet,disintegrating 4 mg PO Q8H PRN PRN (Reason: Nausea) Qty: 10 0RF oxycodone 5 mg tablet 5 mg PO Q6H PRN (Reason: pain) 1 Days Qty: 4 0RF hydrochlorothiazide 25 mg tablet 25 mg PO DAILY Qty: 30 11RF Hold Instructions: Hold for 3 days and start with 12.5 mg, half tablet daily. ursodiol 250 mg tablet 250 mg PO BID Qty: 180 1RF amlodipine 10 mg tablet 10 mg PO DAILY Qty: 90 3RF Stand Alone Forms: ED Work / School Excuse Primary Care Provider: Lobito Maldonado Referrals: Lobito Maldonado MD [Primary Care Provider] - Activity Restrictions/Additional Instructions: Thank you for trusting us with your care today! Please take Tylenol (2 pills, 650 mg), ibuprofen (2 pills, 400 mg) every 6 hoursas needed for pain and fever control. Please take oxycodone if the above regimen does not control your pain. Please take Zofran as needed for nausea and vomiting. Please return to the emergency department if your symptoms change or worsen. Specifically develop nausea vomiting if your pain is not controlled with the above pain regimen. Please refrain from drinking alcohol as this will exacerbate your underlying propensity for pancreatitis Please follow with your primary care physician for further outpatient evaluationand management. Disposition Disposition: Home, Self Care What to do if you have Problems For any increased pain, shortness of breath, bleeding, nausea or vomiting, chestpain, or any unexpected problems, contact your Primary Care Provider. Call [facility] ([phone]) or report to the closest Emergency Room. Call 911 if necessary. 08/09/23 0530 <Electronically signed by eNftali Dickson DO> Cosigner Signature (if applicable): CC: Dr. Lobito Maldonado MD ~ Signed [facility] Work Phone: 1(186) 818-238309-22-2023 Miscellaneous Notes* Telephone Encounter - Heidi Jimenez Ma - 06/16/2023 10:58 AM EDT Letter mailed to pt notifying him that repeat chest xray was negative. Heidi Jimenez Ma * Telephone Encounter - Heidi Jimenez Ma - 06/16/2023 10:58 AM EDT ----- Message from Lobito Maldonado MD sent at 06/15/2023 6:16 PM EDT ----- CXR negative. 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 Per [facility]. [id number] (CREON) 12,000-38,000 -60,000 unit delayed release capsule [...] results. Alis Dunne APRN.CNP documented in this encounterBrown Memorial Hospital09-11-2023 History of Present illness Narrative* Puja Starr RT(R) - 06/05/2023 1:00 PM EDT Radiology Service Progress Note PATIENT NAME: Bronson Weller DATE OF SERVICE: June 05, 2023 TIME: 12:30 PM PATIENT IDENTITY VERIFICATION COMPLETED USING TWO (2) IDENTIFIERS: Name and Date of confirmedby patient verbally. FALL SCREENING: Has the patient [...] RT Isaiah(R) June 05, 2023 12:30 PM documented in this encounterBrown Memorial Hospital08-25-2023 Instructions* Patient Instructions* Danilo Benitez - 05/19/2023 10:27 AM EDT Diabetes [...] it. Apply a bandage and wear a differentpair of shoes. Take Care of Your Toenails Cut toenails after bathing, when they are soft. Cut toenails straight across and smooth with a nail file. Avoid cutting into the corners of toes. Do not cut cuticles. If you have neuropathy (or decreased sensation in your feet) a mixer wet pour should always cut your toenails. Be Careful [...] make sure there are no foreign objects orrough areas. Avoid tight socks. Wear natural-fiber socks [...] Go to your health care provider or mixer wet pour to treat these conditions. documented in this encounterBrown Memorial Hospital08-25-2023 History of Present illness Narrative* Danilo Benitez - 05/19/2023 10:18 AM EDT Consultation requested by Dr. Maldonado for an opinion regarding diabetic foot exam. [...] HBA1C, Mely (%) Date Value 01/04/2011 5.3 Hemoglobin A1C (POCT) (%) Date Value 05/04/2023 7.8 PCP: Lobito Maldonado MD PAST MEDICAL HISTORY Diagnosis Date Acute myocardial infarction of other specified sites, episode of care unspecified 09/2011 Myocardial Infarction Alcohol abuse 05/14/2021 Alcohol induced acute pancreatitis 05/14/2021 Cervical radiculopathy 10/21/2014 Cervical spondylosis 10/21/2014 Chronic cholecystitis 01/07/2019 Coronary artery disease 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 09/25/2011 DDD (degenerative [...] 1 tablet by mouth twice daily. Per [facility]. kfmemf-irqewjqz-uiixshh (CREON) 12,000-38,000 -60,000 unit delayed release capsule [...] Objective: Patient presents to clinic ambulating in [facility] Constitutional: Pt is a well developed [...] toes when tested with the 5.07 SWM bilateral.Vibratory sensation is intact at the hallux bilateral. + Significant neurological defecits. Derm: Inspection and palpation performed. Nails 1-5 b/l are painful, discolored- yellow, thick, crumbly, dystrophic and with subungal debris. Skin is of normal turgor and texture. Hyperkeratosis notedto not present. NO ulcerations, scars, verruca or other lesions noted. Ortho: Ankle joint DF is full with the knee extended and full with knee flexed. No pain or crepitusnoted. STJ, MTJ ROM are full and free of pain or crepitus. Muscle strength is 5/5 for dorsiflexors,plantarflexors, inverters, everters. Assessment: (E11.9, Z79.4) Type 2 diabetes mellitus without complication, with long-term current use of insulin([facility]) (primary encounter diagnosis (B35.1) Dermatophytosis, nail (M79.675) [...] pvr to access circulation to the foot Danilo Benitez DPM * Kendy Corona RN - 05/19/2023 10:06 AM EDT Patient presents with: Left Foot - New, Nail Check Right Foot - New, Nail Check Patient presents for thick and curved toenails to both feet. States that he has a hard time cuttinghis nails himself. Has a history of diabetes with neuropathy. documented in this encounterBrown [facility]08-07-[facility]23 Miscellaneous Notes* Telephone Encounter - Cari Moss RN - 05/01/2023 3:06 PM EDT Patient has been identified by name and [...] you. Cari Moss RN documented in this encounterBrown [facility] Hospital06-16-[address] Gandhi [facility] March 10, 2023 7:14pm Note Date/Time March 10, 2023 5:42 pm [facility] Medical Records Department [address] [place] [id number] Emergency Department Summary 03/10/23 MR#: [id number] Acct: [id number] Name: BRONSON WELLER Rep #:[id number] : 1965 57 From: Alejandro Gandhi MD PCP: Dr. Lobito Maldonado MD Status:R EG ER Location: ED HPI HPI - GI History of Present Illness Chief Complaint: Abd Pain Diarrhea/Melena/Hematochezia Stool Quality: Positive for Loose Narrative Narrative: Patient with recurrent pancreatitis presents with epigastric abdominal pain, nausea and vomiting, along with diarrhea over the last 3 days. Patient has had frequent visits to the emergency department for epigastric pain. He states his symptoms began a few days ago and he could feel that his epigastric pain similarto his previous pancreatitis was coming on again. He switched to a liquid diet and started drinking more water. He has not vomited in the last 24 hours. He presents via EMS with the same epigastric pain that has had in the past. He states it has not been that long since his last emergency department visit. He usually receives Dilaudid and Benadryl. He presents for evaluation of recurrentpancreatitis. He denies any recent dietary indiscretion or alcohol use. [facility] Medical History Alcohol abuse Anxiety and depression Cancer Constipation Diabetes Essential (primary) hypertension Family history of cerebral aneurysm Former tobacco use Gastric ulcer GERD (gastroesophageal reflux disease) GI bleed Glaucoma Hyperlipidemia Liver fibrosis Myocardial infarct Neck pain Polyneuropathy PSA elevation PTSD (post-traumatic stress disorder) Seizure disorder Stroke/cerebrovascular accident TIA (transient ischemic attack) Vision loss of left eye Vision loss of right eye Home Medications amitriptyline 25 mg tablet 25 mg PO QHS depression 07/03/18 [History Last Taken 11/27/22] cholecalciferol (vitamin D3) 125 mcg (5,000 unit) capsule 1 cap PO DAILY supplement 11/09/18 [History Last Taken 11/28/22] hydrochlorothiazide 25 mg tablet 25 mg PO DAILY blood pressure/heart #30 tabs 06/05/20 [Rx Last Taken 11/28/22] gabapentin 300 mg capsule 300 mg PO BID nerve pain 10/06/20 [History Last Taken 11/28/22] pantoprazole 40 mg tablet,delayed release 40 mg PO DAILY gerd 02/27/22 [History Last Taken 11/28/22] pravastatin 40 mg tablet 20 mg PO QHS cholesterol 02/27/22 [History Last Taken 11/27/22] tamsulosin 0.4 mg capsule 0.4 mg PO QHS prostate 02/27/22 [History Last Taken 11/27/22] metformin 500 mg tablet 500 mg PO BID diabetes #0 tabs 03/04/22 [Rx Last Taken 11/28/22] aspirin 81 mg tablet,delayed release 81 mg PO DAILY heart health 07/04/22 [History Last Taken 11/28/22] escitalopram oxalate 10 mg tablet 10 mg PO DAILY depression 07/04/22 [History Last Taken 11/28/22] loratadine 10 mg capsule 10 mg PO DAILY allergies 07/04/22 [History Last Taken 11/28/22] losartan 25 mg tablet 25 mg PO DAILY blood pressure 07/04/22 [History Last Taken 11/28/22] amlodipine 10 mg tablet 10 mg PO DAILY blood pressure #90 tabs 07/27/22 [Rx Last Taken 11/28/22] levetiracetam 500 mg tablet 500 mg PO BID seizures #60 tabs 02/02/23 [Rx Last Taken Unknown] levocarnitine 330 mg tablet 330 mg PO BID #60 tabs 02/02/23 [Rx Last Taken Unknown] ursodiol 250 mg tablet 250 mg PO BID liver fibrosis #180 tabs 03/09/23 [Rx Last Taken Unknown] Allergy/AdvReac Type Severity Reaction Status Date / Time lisinopril Allergy Angioedema Verified 03/10/23 17:01 cyclobenzaprine AdvReac Severe Skin Verified 03/10/23 17:01 crawling hydrocodone bitartrate AdvReac Itching Verified 03/10/23 17:01 [From Vicodin] hydromorphone [From Dilaudid] AdvReac Itching Verified 03/10/23 17:01 morphine AdvReac Itching Verified 03/10/23 17:01 tramadol AdvReac Itching Verified 03/10/23 17:01 Family History Mother Heart disease Sister Cerebral aneurysm Father Diabetes Kidney disease Anxiety and depression Surgical History History of cholecystectomy (12/2013) History of left heart catheterization (10/31/11) Social History household members: none Smoking Status: Former smoker Tobacco: How many years used: 7 Electronic Cigarette Use: not used alcohol intake: former details: 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 substance use type: does not use caffeine: No robbin/tenriism: Tenriism seatbelt use: always ROS ROS ED ROS Narrative Constitutional: No fever, no chills. HEENT: No sore throat. No neck pain. No loss of vision. No rhinorrhea. Cardiovascular: No chest pain. No palpitations. No pedal edema. Respiratory: No cough, no shortness of breath. Abdominal: Epigastric abdominal pain, no current nausea or vomiting, states had a loose stool today. No blood in stool. Genitourinary: No dysuria. No hematuria. Musculoskeletal: No myalgias. No arthralgias. Neurologic: No headaches. No dizziness. No lightheadedness. Skin: No rash. No change in color. Psychiatric: No depression. No anxiety. EXAM Physical Exam Narrative Exam Narrative: Afebrile. Vital signs noted. HEENT: Normocephalic. Atraumatic. PERRL, EOMI. Neck soft and supple. No pointtenderness or step off. Cardiovascular: Regular rate and rhythm. No murmurs, rubs, or gallops appreciated. Respiratory: No tachypnea. Lungs clear to auscultation bilaterally. Gastrointestinal: Abdomen soft, mild tenderness to palpation epigastrium with normoactive bowel sounds. No rebound or guarding. Neurological: Awake. Alert. Nonfocal, nonlateralizing. Skin: No rash. Normal color. No pallor. Musculoskeletal: No pedal edema. Full range of motion extremities. Const Vital Signs: 03/10/23 16:59 Temperature 98.9 F Temperature Source Temporal Pulse Rate 102 H Respiratory Rate 18 Blood Pressure 117/87 H Blood Pressure Mean 97 Pulse Ox 100 Oxygen Delivery Method Room Air MDM MDM MDM Narrative Medical decision making narrative: I reviewed the patient's prior ED visits and laboratory work. Has had frequent visits, at the end of the month of December was his last few visits, some 2 [address]. He was administered Benadryl, Dilaudid, and IV fluids. I will check hislipase, CBC, and CMP. He is usually managed by Dr. Santamaria as an outpatient. I have seen him in the emergency department previously. I do not feel CT imaging is indicated currently, and he last had a CT scan at the end of December, 2 months ago. I reviewed his laboratory work, he has an elevated white count of 12.1, but a chronic leukocytosis, hemoglobin normal at 13.9, platelet count normal at 166. Sodium slightly low at 131, but once again chronic hyponatremia. He was bolusednormal saline 1 L intravenously. Glucose is elevated at 223, but he has a normal anion gap of 9. I am not concerned for any diabetic ketoacidosis. Lipase is slightly elevated at 129. He does have chronic pancreatitis but his enzymes have been as high as 1999 recently. At this point in time, he is resting comfortably. 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 Santamaria. I do not feel that he requires observation at this time, and I do not feel that he needs narcotic pain medications for home. Return instructions to the emergency department were reviewed. Disposition is discharged home in stable condition. History & Record Review Discussion w/independent historian: Patient Additional record(s) reviewed:: Prior ED visit and Prior labs Lab Data Attestation: I reviewed the patient's lab results. Labs: Laboratory Results - last 24 hr 03/10/23 03/10/23 18:01 18:01 WBC 12.1 H RBC 4.30 L Hgb 13.9 Hct 39.8 L MCV 92.6 MCH 32.3 H MCHC 34.9 RDW Std Deviation 43.2 RDW Coeff of Armin 12.7 Plt Count 166 MPV 9.5 Immature Gran % (Auto) 0.200 Neut % (Auto) 68.6 Lymph % (Auto) 22.4 [place] % (Auto) 7.0 Eos % (Auto) 1.5 Baso % (Auto) 0.3 Absolute Neuts (auto) 8.3 H Absolute Lymphs (auto) 2.72 Nucleated RBC % 0 Sodium 131 L Potassium 3.8 Chloride 98 Carbon Dioxide 24.0 Anion Gap 9 BUN 13 Creatinine 1.14 Estim Creat Clear Calc 73.82 Est GFR (MDRD) Af Amer 85 Est GFR (MDRD) Non-Af 70 BUN/Creatinine Ratio 11.4 Glucose 223 H Calcium 9.7 Total Bilirubin 0.70 AST 21 ALT 17 Alkaline Phosphatase 66 Total Protein 7.6 Albumin 3.8 Globulin 3.8 Albumin/Globulin Ratio 1.0 Lipase 129 H Discharge Plan Triage Chief Complaint: Abd Pain ED Provider: Alejandro Gandhi Dx/Rx/DC Orders Clinical Impression: Epigastric pain, Elevated lipase Instructions: ED Pancreatitis, ED Epigastric Pain Uncertain Cause Prescriptions: No Action amitriptyline 25 mg tablet 25 mg PO QHS gabapentin 300 mg capsule 300 mg PO BID levetiracetam 500 mg tablet 500 mg PO BID Qty: 60 6RF levocarnitine 330 mg tablet 330 mg PO BID Qty: 60 6RF Rx Instructions: must administer with a meal/food cholecalciferol (vitamin D3) 5,000 capsule 1 cap PO DAILY tamsulosin 0.4 mg Capsule 0.4 mg PO QHS pantoprazole 40 mg Tablet,Delayed Release (Dr/Ec) 40 mg PO DAILY pravastatin 40 mg Tablet 20 mg PO QHS metformin 500 MG tablet 500 mg PO BID Qty: 0 0RF Hold Instructions: Hold for 3 days aspirin 81 mg Tablet,Delayed Release (Dr/Ec) 81 mg PO DAILY losartan 25 mg tablet 25 mg PO DAILY escitalopram oxalate 10 mg tablet 10 mg PO DAILY loratadine 10 MG capsule 10 mg PO DAILY hydrochlorothiazide 25 mg tablet 25 mg PO DAILY Qty: 30 11RF Hold Instructions: Hold for 3 days and start with 12.5 mg, half tablet daily. amlodipine 10 mg tablet 10 mg PO DAILY Qty: 90 3RF ursodiol 250 mg tablet 250 mg PO BID Qty: 180 1RF Primary Care Provider: Lobito Maldonado Referrals: Taras Santamaria DO [Med Staff - Active Staff] - As soon as possible Lobito Maldonado MD [Primary Care Provider] - Disposition Disposition: Home, Self Care What to do if you have Problems For any increased pain, shortness of breath, bleeding, nausea or vomiting, chestpain, or any unexpected problems, contact your Primary Care Provider. Call [facility] ([phone]) or report to the closest Emergency Room. Call 911 if necessary. 03/10/231913 <Electronically signed by Alejandro Gandhi MD> Cosigner Signature (if applicable): CC: Dr. Lobito Maldonado MD; Taras Santamaria DO ~ Signed [facility] Work Phone: [phone]) 580-654605-30-2023 History of Present illness Narrative* Freedom Delacruz MD - 02/21/2023 10:06 AM EDT Assessment and Plan 1. Type 2 diabetes [...] and plan as stated above and agree withall of its relevant components. Freedom Delacruz MD February 21, 2023 10:06 AM documented in this encounterBrown [facility] Hospital05-15-2023 Instructions* Patient Instructions* Lobito Maldonado MD - 02/06/2023 1:42 PM EDT TAKE EXTRA 10 UNITS OF LANTUS WHEN YOU GET HOME. STARTING TOMORROW, TAKE LANTUS 14 UNITS. EVERY 3 DAYS INCREASE OR ADD 2 UNITS UNTIL MOST OF YOUR FASTING GLUCOSE ARE 140 OR LESS. THEN STOP AT THAT LANTUS INSULIN DOSE. documented in this encounterBrown [facility] Hospital05-15-2023 History of Present illness Narrative* Lobito Maldonado MD - 02/06/2023 1:14 PM EDT This note was created using [email or web address]. Subjective Bronson Weller is a 57 year old male. He felt ill this morning with shakiness, weakness, lightheadedness. He had no other symptoms. He did not check his glucose today, but indicated his glucoses wereokay yesterday. We reviewed his lab results which [...] of Both Eyes Coronary Artery Disease Involving Kashia Coronary Artery of Kashia Heart Without Angina Pectoris Posttraumatic Stress Disorder [...] 1 tablet by mouth twice daily. Per [facility]. kxmfde-xioaqmnd-gmeyczg (CREON) 12,000-38,000 -60,000 unit delayed release capsule [...] - ICD9: 787.02, ICD10: R11.0 (primary diagnosis) [place] diet. 2. Hypertension, essential - ICD9: 401.9, [...] until most glucose readings are <140. Lobito Maldonado MD documented in this encounterBrown [facility] Hospital05-03-2023 Miscellaneous Notes* Telephone Encounter - Lobito Maldonado MD - 01/25/2023 9:51 AM EDT Noted. * Telephone Encounter - Prema Springer LPN - 01/24/2023 9:26 AM EDT Estela from [facility] calling to report pt was seen at [facility] ED 01/21/23 for chest pain. She reports pthad a neg CT scan. Records in [facility] Prema Springer LPN documented in this encounterBrown Memorial Hospital04-24-2023 Miscellaneous Notes* Telephone Encounter - Kendy Amador RN - 01/16/2023 4:27 PM EDT Patient has been identified by name and date of : Yes, Provider Dr Maldonado Date 01/16/23 [id number]. Pharmacy phones for refill(s): Requested Prescriptions Pending [...] you. Kendy Amador RN documented in this encounterBrown Memorial Hospital2023 Miscellaneous Notes* Telephone Encounter - Lobito Maldonado MD - 12/29/2022 10:00 AM EDT Noted. * Telephone Encounter - Tonio Jackson RN - 12/27/2022 9:58 AM EDT [facility] to let [facility] know, patient was seen in [facility] ER yesterday and treated for seizure, stomach/side pain. documented in this encounterBrown Memorial Hospital03-28-2023 Miscellaneous Notes* Telephone Encounter - Rhona Samayoa LPN - 12/20/2022 3:30 PM EDT Patient notified that he has 1 refill of Gabapentin 300mg, written 10/19/2022, x180 capsules, 1 refill. Patient will check with his pharmacy. Rhona Samayoa LPN * Telephone Encounter - Gin Martins [facility] - 12/20/2022 3:21 PM EDT Patient has been identified by name and date of : Yes Requested Prescriptions Pending Prescriptions Disp Refills gabapentin (NEURONTIN) 300 mg capsule 180 capsule 1 Sig: Take 1 capsule by mouth twice daily for 180 days. RX INSTRUCTIONS: Pharmacy initiated this request. No need to notify patient. [facility] documented in this encounterBrown Memorial Hospital03-24-2023 Miscellaneous Notes* Telephone Encounter - Arcelia Arias LPN - 12/16/2022 8:41 AM EDT Patient notified.Arcelia Arias LPN * Telephone Encounter - DAFNE Collins - 12/16/2022 7:08 AM EDT Negative for COVID and flu documented in this encounterBrown Memorial Hospital03-23-2023 History of Present illness Narrative* Emmanuel Fritz MD - 12/15/2022 11:57 AM EDT Patient presents with: Sore Throat: Cough, fever, [...] Coronary artery disease 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 09/25/2011 DDD (degenerative [...] 1 tablet by mouth twice daily. Per [facility]. dbwkiq-semznyjz-awwgcbx (CREON) 12,000-38,000 -60,000 unit delayed release capsule [...] pain, shortness of breath, and lethargy; in theER if severe. - 2019 CORONAVIRUS He will use wax softening drops. Emmanuel Fritz MD documented in this encounterBrown Memorial Hospital03-22-[address] Dilip [facility] December 14, 2022 3:32am Note Date/Time December 13, 2022 11: 25pm [facility] Medical Records Department [address] [place] [address] Emergency Department Summary 12/13/22 MR#: [id number] Acct: [id number] Name: BRONSON WELLER Rep #:[id number] : 1965 57 From: Saurabh Cherry MD PCP: Dr. Lobito Maldonado MD Status:R EG ER Location: ED HPI History of Present Illness Chief Complaint: Chest Pain Informant: patient Narrative Narrative: Patient states he ate chili tonight, and about 1.5-2 hours later he started getting epigastric pain, spread to his entire upper abdomen, some nausea but no vomiting, has been going on for about 3 hours now. Prior to calling EMS, stateshe started having rapid palpitations and felt lightheaded, he called EMS and within 15 or 20 minutes they arrived and his racing heartbeat and lightheadedness resolved. He had no syncope or chest pain. He still has the upper abdominal pain states it feels like pancreatitis. He has a history of that from alcohol use. States he does not drink heavily anymore, he is quittingaltogether, his last beer was 3 days ago. He has had prior cholecystectomy, no other abdominal surgeries. He denies any other recent illness prior to the symptoms starting tonight. [facility] Medical History Alcohol abuse Anxiety and depression Cancer Constipation Diabetes Essential (primary) hypertension Family history of cerebral aneurysm Former tobacco use Gastric ulcer GERD (gastroesophageal reflux disease) GI bleed Glaucoma Hyperlipidemia Myocardial infarct Neck pain Pancreatitis Polyneuropathy PSA elevation PTSD (post-traumatic stress disorder) Seizure disorder Stroke/cerebrovascular accident TIA (transient ischemic attack) Vision loss of left eye Vision loss of right eye Home Medications nitroglycerin 0.4 mg sublingual tablet 0.4 mg sublingual Q5M PRN Chest Pain 07/15/13 [History Last Taken 08/22/15] amitriptyline 25 mg tablet 25 mg PO QHS depression 07/03/18 [History Last Taken 11/27/22] cholecalciferol (vitamin D3) 125 mcg (5,000 unit) capsule 1 cap PO DAILY supplement 11/09/18 [History Last Taken 11/28/22] hydrochlorothiazide 25 mg tablet 25 mg PO DAILY blood pressure/heart #30 tabs 06/05/20 [Rx Last Taken 11/28/22] gabapentin 300 mg capsule 300 mg PO BID nerve pain 10/06/20 [History Last Taken 11/28/22] insulin glargine 100 unit/mL subcutaneous solution (Lantus U-100 Insulin) 10 unit SQ QHS diabetes 12/30/20 [History Last Taken 11/27/22] latanoprost 0.005 % eye drops 1 drp EACH EYE QHS glaucoma 12/07/21 [History Last Taken 11/27/22] magnesium oxide 400 mg (241.3 mg magnesium) tablet 400 mg PO BID supplement 02/27/22 [History Last Taken 11/28/22] pantoprazole 40 mg tablet,delayed release 40 mg PO DAILY gerd 02/27/22 [History Last Taken 11/28/22] pravastatin 40 mg tablet 60 mg PO QHS cholesterol 02/27/22 [History Last Taken 11/27/22] tamsulosin 0.4 mg capsule 0.4 mg PO QHS prostate 02/27/22 [History Last Taken 11/27/22] metformin 500 mg tablet 500 mg PO BID diabetes #0 tabs 03/04/22 [Rx Last Taken 11/28/22] aspirin 81 mg tablet,delayed release 81 mg PO DAILY heart health 07/04/22 [History Last Taken 11/28/22] escitalopram oxalate 10 mg tablet 10 mg PO DAILY depression 07/04/22 [History Last Taken 11/28/22] fluticasone propionate 50 mcg/actuation nasal spray,suspension (Flonase Allergy Relief) 2 spray intranasal DAILY allergies 07/04/22 [History Last Taken 11/28/22] loratadine 10 mg capsule 10 mg PO DAILY allergies 07/04/22 [History Last Taken 11/28/22] losartan 25 mg tablet 25 mg PO DAILY blood pressure 07/04/22 [History Last Taken 11/28/22] omega-3 fatty acids-fish oil 684 mg-1,200 mg capsule,delayed release 2 cap PO DAILY supplement 07/04/22 [History Last Taken 11/28/22] amlodipine 10 mg tablet 10 mg PO DAILY blood pressure #90 tabs 07/27/22 [Rx Last Taken 11/28/22] levetiracetam 500 mg tablet 500 mg PO BID seizures #60 tabs 08/08/22 [Rx Last Taken 11/28/22] naproxen 500 mg tablet 500 mg PO BID PRN Pain 09/06/22 [History Last Taken Unknown] simethicone 80 mg chewable tablet (Gas Relief 80 (simethicone)) 80 mg PO DAILY PRN gas relief 09/06/22 [History Last Taken Unknown] folic acid 1 mg tablet 1 mg PO BREAKFAST #30 tabs 09/08/22 [Rx Last Taken 11/28/22] kcribj-ejywmmei-ysmwjwb 12,000-38,000-60,000 unit capsule,delayed rel (Creon) 1 cap PO .TIDAC 30 days #90 caps 09/08/22 [Rx Last Taken 11/28/22] thiamine HCl (vitamin B1) 100 mg tablet (Vitamin B-1) 100 mg PO BREAKFAST #30 tabs 09/08/22 [Rx Last Taken 11/28/22] ursodiol 250 mg tablet 250 mg PO BID liver fibrosis #180 tabs 09/21/22 [Rx Last Taken 11/28/22] levocarnitine 330 mg tablet 330 mg PO BID #60 tabs 09/28/22 [Rx Last Taken 11/28/22] oxycodone 5 mg tablet 5 mg PO Q6H PRN pain 3 days #12 tabs 12/02/22 [Rx Last Taken Unknown] prednisone 20 mg tablet 40 mg PO DAILY 30 days #60 tabs 12/02/22 [Rx Last Taken Unknown] ondansetron 4 mg disintegrating tablet 8 mg PO Q8H PRN PRN Nausea #14 tabs 12/14/22 [Rx Last Taken Unknown] Allergy/AdvReac Type Severity Reaction Status Date / Time lisinopril Allergy Angioedema Verified 11/09/22 16:17 cyclobenzaprine AdvReac Severe Skin Verified 11/09/22 16:17 crawling Iodinated Contrast Media AdvReac Intermediate ITCHY FEET Verified 11/09/22 16:17 [iodine contrast] hydrocodone bitartrate AdvReac Itching Verified 11/09/22 16:17 [From Vicodin] hydromorphone [From Dilaudid] AdvReac Itching Verified 11/09/22 16:17 morphine AdvReac Itching Verified 11/09/22 16:17 tramadol AdvReac Itching Verified 11/09/22 16:17 Family History (Updated 11/29/22 @ 03:[address] Mayelin Pedraza MD) Mother Heart disease Sister Cerebral aneurysm Father Diabetes Kidney disease Anxiety and depression Surgical History History of cholecystectomy (12/2013) History of left heart catheterization (10/31/11) Social History household members: none Smoking Status: Former smoker Tobacco: How many years used: 7 Electronic Cigarette Use: not used alcohol intake: former details: 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 substance use type: does not use caffeine: No robbin/tenriism: Tenriism seatbelt use: always ROS ROS ED Constitutional Constitutional ED: Denies chills or fever(s) Eyes Eyes: Denies change in vision or diplopia ENT ENT ED: Denies rhinorrhea or sore throat Cardiovascular Cardiovascular: Reports lightheadedness, palpitations and racing heartbeat; Denies chest pain Respiratory/Chest Respiratory/Chest: Denies cough or dyspnea Gastrointestinal Gastrointestinal: Reports abdominal pain and nausea; Denies diarrhea or vomiting Genitourinary Genitourinary ED: Denies dysuria or hematuria Musculoskeletal Musculoskeletal: Denies back pain or neck pain Integumentary Denies abscess or rash Neurologic Neurologic: Denies headache(s), paresthesias or weakness Psychiatric Psychiatric: Denies anxiety or suicidal thoughts EXAM Physical Exam Const Vital Signs: 12/13/22 23:07 12/13/22 23:09 12/13/22 23:09 Temperature 98.7 F 98.7 F Temperature Source Temporal Temporal Pulse Rate 128 H 123 H Respiratory Rate 16 16 Blood Pressure 145/85 H 145/85 H Blood Pressure Mean 105 105 Pulse Ox 96 99 98 Oxygen Delivery Method Room Air Room Air Room Air Positive well nourished and well developed General Appearance ED: well developed and NAD HEENT Reports moist mucous membranes normocephalic and atraumatic Eyes PERRL and EOMs intact bilaterally Neck full ROM and supple Resp normal respiratory effort and clear to auscultation bilaterally Cardio regular rate, regular rhythm and no murmurs Rate: tachycardic GI non-distended GI Narrative: Diffuse upper abdominal tenderness no guarding or rebound, hyperactive bowel sounds. Palpation: soft Back/Spine no CVA tenderness General Back: other FROM Extremity normal to inspection General Extremety ED: Negative for edema, pulses abnormal or tenderness General Extremity: Negative for edema or pulses abnormal Neuro oriented x3, CN's II-XII intact bilaterally and no sensory deficits noted Sensorium / Orientation: awake and alert Motor Exam: strength 5/5 throughout Psych mental status grossly normal Skin no rashes or lesions noted and no wounds MDM MDM MDM Narrative Medical decision making narrative: Labs obtained, he has hyperglycemia, mild AGA/dehydration with prerenal azotemia, mildly suppressed bicarb with an elevated anion gap, and a leukocytosis. He has no thoracic symptoms or urinary symptoms. We gave him fluids, Zofran, and fentanyl for the pain, and given the leukocytosis I obtaineda CT of the abdomen/pelvis. I reviewed the images. My interpretation of the CTagrees with that of the radiologist. It is basically negative for any acute including lower lobe pneumonias. Because of his anion gap and diabetes I added on an acetone level although he thinks he is a type II diabetic I saw that he roxi insulin, that is negative. His lactate is a little elevated. He was given fluids but did not want anymore and is feeling a lot better and willing to go home. I rechecked his blood sugar, it is 370, so he is amenable to getting a dose of insulin before going home, we waited for that because he took some priorto coming. I do not have an obvious etiology for his leukocytosis but at this time I see nothing that antibiotics are indicated for. His lipase is just barely elevated, and is not consistent with acute pancreatitis. For that I would recommend full liquid diet for the next 48 hours, given a prescription for Zofran, advised to follow-up is comfortable with that plan. History & Record Review Additional record(s) reviewed:: Prior outpatient record (Cardiology visit 01/03/2022, no history of dysrhythmias or symptoms of them at that visit.) Lab Data Attestation: I reviewed the patient's lab results. Labs: Laboratory Results - last 24 hr 12/13/22 12/13/22 12/14/22 22:57 22:57 02:35 WBC 20.5 H RBC 4.50 L Hgb 14.3 Hct 41.2 MCV 91.6 MCH 31.8 MCHC 34.7 RDW Std Deviation 40.3 RDW Coeff of Armin 11.9 Plt Count 229 MPV 10.3 Immature Gran % (Auto) 1.100 H Neut % (Auto) 85.9 H Lymph % (Auto) 10.3 L [place] % (Auto) 2.4 Eos % (Auto) 0.0 Baso % (Auto) 0.3 Absolute Neuts (auto) 17.6 H Absolute Lymphs (auto) 2.12 Nucleated RBC % 0 Sodium 133 L Potassium 3.7 Chloride 97 L Carbon Dioxide 19.0 L Anion Gap 17 H BUN 19 H Creatinine 1.34 H Estim Creat Clear Calc 62.80 Est GFR (MDRD) Af Amer 71 Est GFR (MDRD) Non-Af 58 L BUN/Creatinine Ratio 14.2 Glucose 426 H Lactic Acid Calcium 9.8 Total Bilirubin 0.40 AST 8 L ALT 21 Alkaline Phosphatase 89 Troponin I High Sens 8 Total Protein 8.1 Albumin 4.0 Globulin 4.1 Albumin/Globulin Ratio 1.0 Lipase 458 H Acetone Level NEGATIVE 12/14/22 02:35 WBC RBC Hgb Hct MCV MCH MCHC RDW Std Deviation RDW Coeff of Armin Plt Count MPV Immature Gran % (Auto) Neut % (Auto) Lymph % (Auto) [place] % (Auto) Eos % (Auto) Baso % (Auto) Absolute Neuts (auto) Absolute Lymphs (auto) Nucleated RBC % Sodium Potassium Chloride Carbon Dioxide Anion Gap BUN Creatinine Estim Creat Clear Calc Est GFR (MDRD) Af Amer Est GFR (MDRD) Non-Af BUN/Creatinine Ratio Glucose Lactic Acid 2.3 H* Calcium Total Bilirubin AST ALT Alkaline Phosphatase Troponin I High Sens Total Protein Albumin Globulin Albumin/Globulin Ratio Lipase Acetone Level Radiography Diagnostic Testing: Clinical Impression(s) from Imaging Studies Abdomen/Pelvis CT 12/14/22 00:37 IMPRESSION: 1. No evidence of acute intra-abdominal abnormality. 2. Colonic diverticulosis with no evidence of diverticulitis. 3. Other nonurgent findings within body of report. Electronically Signed: Daiana Matson MD at 1:42 EDT , Rhythm Strip Rhythm Strip: Sinus Tach Rate: 120 Ectopy: None EKG Initial EKG: Attestation: I personally reviewed and interpreted this EKG as follows: Interpretation: No Acute Injury Pattern and Sinus Tachycardia Prior EKG tracings: available for review Prior: Unchanged Discharge Plan Triage Chief Complaint: Chest Pain ED Provider: Saurabh Cherry Dx/Rx/DC Orders Clinical Impression: Elevated lipase, Mild dehydration, Hyperglycemia due to type 2 diabetes mellitus, Acute upper abdominal pain Instructions: Abdominal Pain, ED Full Liquid Diet Prescriptions: New ondansetron [ondansetron] 4 mg tablet,disintegrating 8 mg PO Q8H PRN PRN (Reason: Nausea) Qty: 14 0RF No Action amitriptyline 25 mg tablet 25 mg PO QHS gabapentin 300 mg capsule 300 mg PO BID levetiracetam 500 mg tablet 500 mg PO BID Qty: 60 6RF levocarnitine 330 mg tablet 330 mg PO BID Qty: 60 5RF Rx Instructions: must administer with a meal/food nitroglycerin 0.4 MG tablet 0.4 mg sublingual Q5M PRN (Reason: Chest Pain) cholecalciferol (vitamin D3) 5,000 capsule 1 cap PO DAILY insulin glargine [Lantus U-100 Insulin] 100 UNIT/ML solution 10 unit SQ QHS latanoprost 0.005 % drops 1 drp EACH EYE QHS tamsulosin 0.4 mg Capsule 0.4 mg PO QHS pantoprazole 40 mg Tablet,Delayed Release (Dr/Ec) 40 mg PO DAILY pravastatin 40 mg Tablet 60 mg PO QHS magnesium oxide 400 mg (241.3 mg magnesium) tablet 400 mg PO BID metformin 500 MG tablet 500 mg PO BID Qty: 0 0RF Hold Instructions: Hold for 3 days aspirin 81 mg Tablet,Delayed Release (Dr/Ec) 81 mg PO DAILY losartan 25 mg tablet 25 mg PO DAILY fluticasone propionate [Flonase Allergy Relief] 50 mcg/actuation [place],Suspension 2 spray INTRANASAL DAILY escitalopram oxalate 10 mg tablet 10 mg PO DAILY loratadine 10 MG capsule 10 mg PO DAILY omega-3 fatty acids-fish oil 684-1,200 mg Capsule,Delayed Release(Dr/Ec) 2 cap PO DAILY naproxen 500 mg tablet 500 mg PO BID PRN (Reason: Pain) simethicone [Gas Relief 80 (simethicone)] 80 mg Tablet,Chewable 80 mg PO DAILY PRN (Reason: gas relief) thiamine HCl (vitamin B1) [Vitamin B-1] 100 mg Tablet 100 mg PO BREAKFAST Qty: 30 0RF folic acid 1 mg Tablet 1 mg PO BREAKFAST Qty: 30 0RF Creon 12,000-38,000 -60,000 unit capsule,delayed release(DR/EC) 1 cap PO .TIDAC 30 Days Qty: 90 2RF Rx Instructions: administer with meals and/or snacks oxycodone 5 mg tablet 5 mg PO Q6H PRN (Reason: pain) 3 Days Qty: 12 0RF prednisone 20 mg tablet 40 mg PO DAILY 30 Days Qty: 60 0RF hydrochlorothiazide 25 mg tablet 25 mg PO DAILY Qty: 30 11RF Hold Instructions: Hold for 3 days and start with 12.5 mg, half tablet daily. amlodipine 10 mg tablet 10 mg PO DAILY Qty: 90 3RF ursodiol 250 mg tablet 250 mg PO BID Qty: 180 1RF Primary Care Provider: Lobito Maldonado Referrals: Lobito Maldonado MD [Primary Care Provider] - As soon as possible Disposition Disposition: Home, Self Care What to do if you have Problems For any increased pain, shortness of breath, bleeding, nausea or vomiting, chestpain, or any unexpected problems, contact your Primary Care Provider. Call [facility] ([phone]) or report to the closest Emergency Room. Call 911 if necessary. 12/14/22 0332 <Electronically signed by Saurabh Cherry MD> Cosigner Signature (if applicable): CC: Dr. Lobito Maldonado MD ~ Signed [facility] Work Phone: 1(838) 415-559203-20-2023 Miscellaneous Notes* Telephone Encounter - Tonio Jackson RN - 12/12/2022 10:52 AM EDT Patient has been identified by name and [...] you. Tonio Jackson RN [facility] History of Present illness Narrative* Lobito Maldonado MD - 12/09/2022 10:39 AM EDT This note was created using NoteWriter. Subjective Transitional Care Management Progress Note The patients TCM visit was performed within the 7 days of discharge. Patient's Date of discharge: 12/02/22 Date of initial coordinator contact after discharge: 12/06/22 Discharge diagnosis: acute on chronic pancreatitis. Medication review completed Yes Lobito Maldonado MD Provider Documentation: In follow-up of hospitalization, Bronson Weller is a 57 year old male with the chief complaint of transition of care. I have reviewed the patient s last hospital course including diagnostic testing performed during this hospitalization, their discharge medications, and my assessment and plan with the patient and anyfamily members present at today s visit. Bronson Weller is a 57 year [...] of Both Eyes Coronary Artery Disease Involving Kashia Coronary Artery of Kashia Heart Without Angina Pectoris Posttraumatic Stress Disorder [...] use: Never Current Outpatient Medications Medication Sig cxetfk-inbwynho-idckxjb (CREON) 12,000-38,000 -60,000 unit delayed release capsule [...] 1 tablet by mouth twice daily. Per [facility]. No current facility-administered medications for this [...] fibrosis'. - URSODIOL 250 MG TABLET Lobito Maldonado MD [facility] History of Present illness Narrative* Adore Perry LPN - 12/06/2022 3:49 PM EDT Message left again for return call from pt. * Adore Perry LPN - 12/06/2022 12:15 PM EDT Message left for pt to return call to a nurse to complete TCM note. [facility] Tidwell [facility] December 02, 2022 1:54pm Note Date/Time December 02, 2022 1:5 4pm [facility] Medical Records Department [address] [place] [address] Instructions for Home/Discharge Instructions 12/02/22 1353 MR#: [id number] Acct: [id number] Name: BRONSON WELLER Rep #:[id number] : 1965 57 From: Veena Tidwell MD PCP: Dr. Lobito Maldonado MD Status:A DM IN Discharge Instructions Diet Discharge Diet: Low fat / Low cholesterol Activity Discharge Activity: Return to Normal Activity Weight Bearing Status: Weight bearing as tolerated Dressing / Incision Call your doctor if you observe: Fever of 101 or Higher, Chest pain, Increased palpitations (irregular heartbeat), Calf discomfort and Uncontrolled pain Follow Up Care Test Results: Test results from this visit will be discussed in further detail at your follow- up appointment, if applicable. Discharge Plan Admission Admit Date/Time: 11/29/22 02:46 Primary Reason for Your Visit: acute pancreatitis Attending Provider: Veena Tidwell Primary Care Provider: Lobito Maldonado Consulting Providers: Mayelin Pedraza Instructions Patient Instructions: ED Pancreatitis Discharge Orders/Prescriptions Prescriptions: New oxycodone 5 mg tablet 5 mg PO Q6H PRN (Reason: pain) 3 Days Qty: 12 0RF Continued amitriptyline 25 mg tablet 25 mg PO QHS gabapentin 300 mg capsule 300 mg PO BID levetiracetam 500 mg tablet 500 mg PO BID Qty: 60 6RF levocarnitine 330 mg tablet 330 mg PO BID Qty: 60 5RF Rx Instructions: must administer with a meal/food nitroglycerin 0.4 MG tablet 0.4 mg sublingual Q5M PRN (Reason: Chest Pain) cholecalciferol (vitamin D3) 5,000 capsule 1 cap PO DAILY insulin glargine [Lantus U-100 Insulin] 100 UNIT/ML solution 10 unit SQ QHS latanoprost 0.005 % drops 1 drp EACH EYE QHS tamsulosin 0.4 mg Capsule 0.4 mg PO QHS pantoprazole 40 mg Tablet,Delayed Release (Dr/Ec) 40 mg PO DAILY pravastatin 40 mg Tablet 60 mg PO QHS magnesium oxide 400 mg (241.3 mg magnesium) tablet 400 mg PO BID metformin 500 MG tablet 500 mg PO BID Qty: 0 0RF Hold Instructions: Hold for 3 days aspirin 81 mg Tablet,Delayed Release (Dr/Ec) 81 mg PO DAILY losartan 25 mg tablet 25 mg PO DAILY fluticasone propionate [Flonase Allergy Relief] 50 mcg/actuation [place],Suspension 2 spray INTRANASAL DAILY escitalopram oxalate 10 mg tablet 10 mg PO DAILY loratadine 10 MG capsule 10 mg PO DAILY omega-3 fatty acids-fish oil 684-1,200 mg Capsule,Delayed Release(Dr/Ec) 2 cap PO DAILY naproxen 500 mg tablet 500 mg PO BID PRN (Reason: Pain) simethicone [Gas Relief 80 (simethicone)] 80 mg Tablet,Chewable 80 mg PO DAILY PRN (Reason: gas relief) thiamine HCl (vitamin B1) [Vitamin B-1] 100 mg Tablet 100 mg PO BREAKFAST Qty: 30 0RF folic acid 1 mg Tablet 1 mg PO BREAKFAST Qty: 30 0RF Creon 12,000-38,000 -60,000 unit capsule,delayed release(DR/EC) 1 cap PO .TIDAC 30 Days Qty: 90 2RF Rx Instructions: administer with meals and/or snacks hydrochlorothiazide 25 mg tablet 25 mg PO DAILY Qty: 30 11RF Hold Instructions: Hold for 3 days and start with 12.5 mg, half tablet daily. amlodipine 10 mg tablet 10 mg PO DAILY Qty: 90 3RF ursodiol 250 mg tablet 250 mg PO BID Qty: 180 1RF Referrals / Follow Up: Lobito Maldonado MD [Primary Care Provider] - Within 2 Weeks Disposition Disposition (needs filled in before D/C Order can be placed): Home, Self Care 12/02/22 1354<Electronically signed by Veena Tidwell MD>Veena Tidwell MD CC: Dr. Mayelin Pedraza MD; Dr. Lobito Maldonado MD ~ Signed [facility] Work Phone: [phone]) 385-965303-09-2023 Progress note Author Taras Santamaria [facility] December 01, 2022 6:24pm Note Date/Time December 01, 2022 6:24 pm [facility] Medical Records Department [address] [place] [address] Progress Note 12/01/22 1822 MR#: [id number] Acct: [id number] Name: BRONSON WELLER Rep #:[id number] : 1965 57 From: Taras Santamaria DO PCP: Dr. Lobito Maldonado MD Status:A DM IN Location: MS3 [id number] Subjective Subjective Patient had some more abdominal pain and bloating today. He also complained of some nausea without chest pain or shortness of breath. He has not had a bowel movement. Objective Data Objective Data Vital Signs: Vital Signs Temp Pulse Resp BP Pulse Ox O2 Del Method 97.6 F L 88 18 140/93 H 98 Room Air 12/01/22 14:15 12/01/22 14:15 12/01/22 14:15 12/01/22 14:15 12/01/22 14:15 12/01/22 14:15 Oxygen Delivery Method Room Air Weight: 190 lb 7.67 oz Body Mass Index (BMI) 27.3 Intake & Output: Intake and Output for Last 24 Hours 11/29/22 11/30/22 12/01/22 23:59 23:59 23:59 Intake Total 3795.0 / 3795.0 3807.5 / 3807.5 3250 / 3250 Balance 3795.0 / 3795.0 3807.5 / 3807.5 3250 / 3250 Lab / Micro Data Result Diagrams: 12/01/22 06:00 12/01/22 06:00 Labs: Laboratory Results - last 24 hr 11/30/22 21:02: POC Glucose 205 H 11/30/22 23:48: POC Glucose 189 H 12/01/22 05:57: POC Glucose 154 H 12/01/22 06:00: WBC 12.8 H, RBC 3.87 L, Hgb 12.1 L, Hct 35.4 L, MCV 91.5, MCH 31.3, MCHC 34.2, RDW Std Deviation 40.6, RDW Coeff of Armin 12.2, Plt Count 174, MPV 9.8, Immature Gran % (Auto) 0.700, Neut % (Auto) 70.5 H, Lymph % (Auto) 22.1, [place] % (Auto) 6.4, Eos % (Auto) 0.1, Baso % (Auto) 0.2, Absolute Neuts (auto) 9.1 H, Absolute Lymphs (auto) 2.84, Nucleated RBC % 0 12/01/22 06:00: Sodium 139, Potassium 3.3 L, Chloride 110 H, Carbon Dioxide 23.0, Anion Gap 6, BUN 8, Creatinine 0.86, Estim Creat Clear Calc 97.85, Est GFR(MDRD) Af Amer 118, Est GFR (MDRD) Non-Af 98, BUN/Creatinine Ratio 9.3 L, Glucose 163 H, Calcium 8.5, Total Bilirubin 1.00, AST 15, ALT 16, Alkaline Phosphatase 60, Total Protein 7.5, Albumin 3.6, Globulin 3.9, Albumin/Globulin Ratio 0.9 12/01/22 06:00: ESR 27 H 12/01/22 06:00: C-React Prot Ext Range 27.20 H, Amylase 67, Lipase 593 H 12/01/22 11:30: POC Glucose 217 H 12/01/22 17:18: POC Glucose 236 H Physical Exam Const alert, oriented x3 and no apparent distress General Appearance: cooperative HEENT normocephalic, head/scalp atraumatic and moist oral mucous membranes Eyes PERRL and EOMs intact bilaterally Neck no lymphadenopathy and supple General: trachea midline Lymph Lymphatic: no lymphadenopathy noted Resp normal respiratory effort, normal air movement and clear to auscultation bilaterally Cardio regular rate, regular rhythm, S1 normal heart sound, S2 normal heart sound and no murmurs GI normal to inspection, nondistended, normoactive bowel sounds GI Narrative: abdomen soft, nontender, no organomegaly Extremity normal capillary refill, no clubbing, cyanosis or edema and no calf tenderness Skin General Skin Exam: no breakdown Neuro CN's II-XII intact bilaterally, no focal motor deficits and no sensory deficits noted Motor Exam: strength 5/5 throughout Psych thought process normal Assessment & Plan Assessment/Plan (1) Acute pancreatitis: PLAN: ?Acute pancreatitis possibly secondary to alcoholic pancreatitis.? His last MRI that he had did not show any signs of pancreatic divisum. His previous MRI was not a good study secondary to mild ascites but there was no signs of pancreatic masses or obstructive physiology. Previously his pancreatitis was at the head in genu of the pancreas.? His hematocrit has been decreasing very well with IV fluids.? He still having some abdominal pain.? I suspect that it is from mild paralytic ileus associated with acute pancreatitis in the setting of diabetes mellitus and some possible mechanical gastroparesis. ?Recommend azithromycin 500 mg IV once a day to increase motility of the small bowel.? I would also give him Reglan 5 mg every 6 hours kftfik-zul-yogiy.? I would give him Colace 100mg p.o. twice daily and I would repeat his CT scan of the abdomen pelvis tomorrow to make sure he has no signs of gastric outlet obstruction, worsening ileus and less likely necrosis.? Depending on what the CTscan abdomen pelvis shows he may need a procedure for therapeutic purposes. There is also possibility that he has type II autoimmune pancreatitis. When he was here previously I had drawn IgG4 level and gammaglobulins and we will both normal. That typically rules out type I autoimmune hepatitis. He has not had an endoscopic ultrasound with biopsies of the pancreas. I believe as per the patient he did not have that due to increased risk of pancreatitis with fine-needle aspiration. The only other type of pancreatitis that I think he would be at most risk for his chronic pancreatitis secondary to alcoholism and acute recurrent pancreatitis. He does not have gross calcifications and I do not see any ductal dilation on his previous MRCP that he had last year. 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 If he does have a good response then we will decrease him down to 0.3 mg/kg as an outpatient. Depending on his repeat imaging whether he would benefit from possible endoscopic procedure. 2022-his CRP is 64 and his ESR is elevated at 28. His lipase is coming with IV fluids and hopefully is improving secondary to steroid therapy. Workingdiagnosis at this time is type II pancreatitis being that his IgG4 was normal and he does not have any other signs or symptoms of progressive pancreatitis. He has had other criteria for early pancreatitis including a pancreatic lesion in the head and the tail which is improved. His MRCP did not show any signs of stricturing disease or chronic pancreatitis. He still has a possibility of chronic pancreatitis. He has not undergone endoscopic ultrasound for fine-needle aspiration to determine what his amylase, lipase, K-maninder and CA testing show. For now I will put him on Ensure clear 4 times a day along with introducing full liquid diet. Continue IV fluids at current dose as his hematocrit and BUN are improving as per Samson's criteria. 12/01/2022-I agree with changes in his diet back to clear liquid diet. I will start him on azithromycin because he is on Reglan and hopefully it will help to improve his pancreatitis induced ileus in gastroparesis that can be associated with severe pancreatitis. He will also need to be on a stool softener twice a day. Continue IV fluids at current rate of 150 ml/hr. Continue to monitor ESR and CRP. Charges/Coding Visit Charges Inpatient E&M: 98975 Subs Hosp L3 12/01/221823 <Electronically signed by Taras Santamaria DO> Taras Santamaria DO Cosigner Signature (if applicable): CC: ~ Signed [facility] Work Phone: [phone] 507-795503-09-2023 Consult note Author Taras Santamaria [facility] December 01, 2022 6:15pm Note Date/Time November 29, 2022 5:25 pm [facility] Medical Records Department [address] [place] [address] Consultation - GI 11/29/22 1724 MR#: [id number] Acct: [id number] Name: BRONSON WELLER Rep #:[id number] : 1965 57 From: Taras Friend DO PCP: Dr. Lobito Maldonado MD Status:A DM IN Location: MS3 [id number] HPI Consult Data Date of Consult: 11/29/22 HPI Narrative Reason for Consultation: Pancreatitis HPI Narrative: BRONSON WELLER, is a 57 M who presents with epigastric pain.? He states it startedtoday. He has a history of recurrent acute pancreatitis.? He states he is taking his medicines.? He is not drinking.? He is trying to eat healthy with fruits and vegetables.? He did have a eggroll cooked in the oven yesterday.? After that he seems to have more abdominal pain.? It is epigastric and does radiate a little bit toward the right.? He is already had his gallbladder out.? No other abdominal surgery.? He is not having pain in the back at this point buthe feels like it might be going there.? He is starting to get a little bit nauseated but no vomiting.? He has still been eating well since this.? No feversor chills.? No urinary symptoms.? No chest pain no trouble breathing.? .? Patient expressed he has 2 episodes of nausea and vomiting.? No constipation or diarrhea.? No urinary symptoms.? No fevers. Patient has history of chronic pancreatitis vs acute recurrent pancreatitis withprevious history of alcohol dependence who had remained sober for couple of months.? He woke up on the morning of his admission with abdominal pain.? Pain was located in the mid abdomen. ? In view of the persistent nature of his symptoms presented to the emergency department.? His assessment was consistent with acute pancreatitis did receive pain meds in the ED and admitted to regular nursing floor for further management. Ct scan of the abdomen/Pelvis (11/17)-? Inflammatory stranding surrounding the pancreatic head and body consistent with acute pancreatitis, clinically correlate with underlying laboratory values.? No evidence of focal fluid collection or abscess. Otherwise no additional acute intra-abdominal process. He had an MRCP that did not show any signs of Chronic pancreatitis, but it did display acute pancreatitis. Work-up in the ED included T96.9, heart rate 108, BP 134/91, respiratory rate 18, CBC with WBC 15.9, hemoglobin 14.9, platelet 225 with left shift, CMP with sodium 134, glucose 223, hepatic profile with T. bili 0.8, AST/ALT 13/20, alk phos 71 otherwise not marked appearing, lipase 2513, ethyl alcohol less than 3.?In the ED patient ministered Phenergan 12.5 mg IM IM x1, Zofran 4 mg IV x1, Dilaudid 0.5 mg IV x2, Benadryl 25 mg IV x1 as well as 1 L normal saline bolus. FORMERLY [facility], 1928–1983 Medical History (Updated 11/29/22 @ 13:[address] Veena Tidwell MD) Alcohol abuse Anxiety and depression Cancer Constipation Diabetes Essential (primary) hypertension Family history of cerebral aneurysm Former tobacco use Gastric ulcer GERD (gastroesophageal reflux disease) GI bleed Glaucoma Hyperlipidemia Myocardial infarct Neck pain Pancreatitis Polyneuropathy PSA elevation PTSD (post-traumatic stress disorder) Seizure disorder Stroke/cerebrovascular accident TIA (transient ischemic attack) Vision loss of left eye Vision loss of right eye Home Medications nitroglycerin 0.4 mg sublingual tablet 0.4 mg sublingual Q5M PRN Chest Pain 07/15/13 [History Last Taken 08/22/15] amitriptyline 25 mg tablet 25 mg PO QHS depression 07/03/18 [History Last Taken 11/27/22] cholecalciferol (vitamin D3) 125 mcg (5,000 unit) capsule 1 cap PO DAILY supplement 11/09/18 [History Last Taken 11/28/22] hydrochlorothiazide 25 mg tablet 25 mg PO DAILY blood pressure/heart #30 tabs 06/05/20 [Rx Last Taken 11/28/22] gabapentin 300 mg capsule 300 mg PO BID nerve pain 10/06/20 [History Last Taken 11/28/22] insulin glargine 100 unit/mL subcutaneous solution (Lantus U-100 Insulin) 10 unit SQ QHS diabetes 12/30/20 [History Last Taken 11/27/22] latanoprost 0.005 % eye drops 1 drp EACH EYE QHS glaucoma 12/07/21 [History Last Taken 11/27/22] magnesium oxide 400 mg (241.3 mg magnesium) tablet 400 mg PO BID supplement 02/27/22 [History Last Taken 11/28/22] pantoprazole 40 mg tablet,delayed release 40 mg PO DAILY gerd 02/27/22 [History Last Taken 11/28/22] pravastatin 40 mg tablet 60 mg PO QHS cholesterol 02/27/22 [History Last Taken 11/27/22] tamsulosin 0.4 mg capsule 0.4 mg PO QHS prostate 02/27/22 [History Last Taken 11/27/22] metformin 500 mg tablet 500 mg PO BID diabetes #0 tabs 03/04/22 [Rx Last Taken 11/28/22] aspirin 81 mg tablet,delayed release 81 mg PO DAILY heart health 07/04/22 [History Last Taken 11/28/22] escitalopram oxalate 10 mg tablet 10 mg PO DAILY depression 07/04/22 [History Last Taken 11/28/22] fluticasone propionate 50 mcg/actuation nasal spray,suspension (Flonase Allergy Relief) 2 spray intranasal DAILY allergies 07/04/22 [History Last Taken 11/28/22] loratadine 10 mg capsule 10 mg PO DAILY allergies 07/04/22 [History Last Taken 11/28/22] losartan 25 mg tablet 25 mg PO DAILY blood pressure 07/04/22 [History Last Taken 11/28/22] omega-3 fatty acids-fish oil 684 mg-1,200 mg capsule,delayed release 2 cap PO DAILY supplement 07/04/22 [History Last Taken 11/28/22] amlodipine 10 mg tablet 10 mg PO DAILY blood pressure #90 tabs 07/27/22 [Rx Last Taken 11/28/22] levetiracetam 500 mg tablet 500 mg PO BID seizures #60 tabs 08/08/22 [Rx Last Taken 11/28/22] naproxen 500 mg tablet 500 mg PO BID PRN Pain 09/06/22 [History Last Taken Unknown] simethicone 80 mg chewable tablet (Gas Relief 80 (simethicone)) 80 mg PO DAILY PRN gas relief 09/06/22 [History Last Taken Unknown] folic acid 1 mg tablet 1 mg PO BREAKFAST #30 tabs 09/08/22 [Rx Last Taken 11/28/22] nzkivq-pkhjjgzb-drkeqfs 12,000-38,000-60,000 unit capsule,delayed rel (Creon) 1 cap PO .TIDAC 30 days #90 caps 09/08/22 [Rx Last Taken 11/28/22] thiamine HCl (vitamin B1) 100 mg tablet (Vitamin B-1) 100 mg PO BREAKFAST #30 tabs 09/08/22 [Rx Last Taken 11/28/22] ursodiol 250 mg tablet 250 mg PO BID liver fibrosis #180 tabs 09/21/22 [Rx Last Taken 11/28/22] levocarnitine 330 mg tablet 330 mg PO BID #60 tabs 09/28/22 [Rx Last Taken 11/28/22] Allergy/AdvReac Type Severity Reaction Status Date / Time lisinopril Allergy Angioedema Verified 11/09/22 16:17 cyclobenzaprine AdvReac Severe Skin Verified 11/09/22 16:17 crawling Iodinated Contrast Media AdvReac Intermediate ITCHY FEET Verified 11/09/22 16:17 [iodine contrast] hydrocodone bitartrate AdvReac Itching Verified 11/09/22 16:17 [From Vicodin] hydromorphone [From Dilaudid] AdvReac Itching Verified 11/09/22 16:17 morphine AdvReac Itching Verified 11/09/22 16:17 tramadol AdvReac Itching Verified 11/09/22 16:17 Family History (Updated 11/29/22 @ 03:[address] Mayelin Pedraza MD) Mother Heart disease Sister Cerebral aneurysm Father Diabetes Kidney disease Anxiety and depression Surgical History (Updated 11/29/22 @ 03:[address] Mayelin Pedraza MD) History of cholecystectomy (12/2013) History of left heart catheterization (10/31/11) Social History (Updated 11/29/22 @ 03:[address] Mayelin Pedraza MD) household members: none Smoking Status: Former smoker Tobacco: How many years used: 7 Electronic Cigarette Use: not used alcohol intake: former details: 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 substance use type: does not use caffeine: No robbin/tenriism: Tenriism seatbelt use: always ROS ROS Narrative Admission Review of Systems: CONSTITUTIONAL: No weight loss, fever, chills, +weakness or fatigue. HEENT: + History of bilateral vision deficits. Eyes: No double vision or yellow sclerae. Ears, Nose, Throat: No hearing loss, sneezing, congestion, runny nose or sore throat. SKIN: + Pruritus following recent pain regimen which is a chronic issue. CARDIOVASCULAR: No chest pain, chest pressure or chest discomfort, palpitations,edema, orthopnea, syncopal events. RESPIRATORY: No shortness of breath, cough or sputum, wheezing, hemoptysis. GASTROINTESTINAL: + anorexia, nausea without vomiting, abdominal pain, No diarrhea, melena, BRBPR. GENITOURINARY: No dysuria, frequency, urgency or retention. NEUROLOGICAL: No headache, dizziness, syncope, paralysis, ataxia, numbness or tingling in the extremities, focal weakness, change in bowel or bladder control,seizure. MUSCULOSKELETAL: + muscle, back pain, joint pain or stiffness. HEMATOLOGIC: + easy bleeding or bruising. LYMPHATICS: No enlarged nodes. No history of splenectomy. PSYCHIATRIC: + history of depression or anxiety. ENDOCRINOLOGIC: No reports of sweating, cold or heat intolerance. No polyuria orpolydipsia. ALLERGIES: + history of angioedema, rhinitis. Physical Exam Const oriented x3 and no apparent distress General Appearance: cooperative HEENT normocephalic, head/scalp atraumatic and moist oral mucous membranes Eyes PERRL and EOMs intact bilaterally Neck no lymphadenopathy and supple General: trachea midline Lymph Lymphatic: no lymphadenopathy noted Resp normal respiratory effort, normal air movement and clear to auscultation bilaterally Cardio regular rate, regular rhythm, S1 normal heart sound, S2 normal heart sound and no murmurs GI normal to inspection, nondistended, normoactive bowel sounds GI Narrative: mild epigastric tenderness, no guarding or rebound tenderness. Extremity normal capillary refill, no clubbing, cyanosis or edema and no calf tenderness Skin General Skin Exam: no breakdown Neuro CN's II-XII intact bilaterally, no focal motor deficits and no sensory deficits noted Motor Exam: strength 5/5 throughout Lab / Micro Data Result Diagrams: 11/29/22 06:20 11/29/22 06:20 Labs: Laboratory Results - last 24 hr 11/28/22 23:55: WBC 15.9 H, RBC 4.64, Hgb 14.9, Hct 42.1, MCV 90.7, MCH 32.1 H, MCHC 35.4, RDW Std Deviation 39.1, RDW Coeff of Armin 11.8, Plt Count 225, MPV 9.4, Immature Gran % (Auto) 0.400, Neut % (Auto) 78.1 H, Lymph % (Auto) 14.0 L, [place] % (Auto) 6.5, Eos % (Auto) 0.6, Baso % (Auto) 0.4, Absolute Neuts (auto) 12.4 H, Absolute Lymphs (auto) 2.22, Nucleated RBC % 0.1 11/28/22 23:55: Sodium 134 L, Potassium 3.5, Chloride 100, Carbon Dioxide 26.0, Anion Gap 8, BUN 15, Creatinine 1.17, Estim Creat Clear Calc 71.93, Est GFR (MDRD) Af Amer 82, Est GFR (MDRD) Non-Af 68, BUN/Creatinine Ratio 12.8, Glucose 223 H, Calcium 9.9, Total Bilirubin 0.80, AST 13 L, ALT 20, Alkaline [id number], Total Protein 8.3 H, Albumin 4.3, Globulin 4.0, Albumin/Globulin Ratio 1.1, Lipase 2513 H 11/28/22 23:55: Phosphorus 3.3, Magnesium 1.6 11/29/22 01:15: Ethyl Alcohol < 3.0 11/29/22 04:16: POC Glucose 213 H 11/29/22 06:20: WBC 12.8 H, RBC 4.18 L, Hgb 13.3, Hct 38.5 L, MCV 92.1, MCH 31.8, MCHC 34.5, RDW Std Deviation 40.2, RDW Coeff of Armin 11.9, Plt Count 197, MPV 9.6, Immature Gran % (Auto) 0.500, Neut % (Auto) 75.2 H, Lymph % (Auto) 16.2L, [place] % (Auto) 7.3, Eos % (Auto) 0.5, Baso % (Auto) 0.3, Absolute Neuts (auto)9.6 H, Absolute Lymphs (auto) 2.07, Nucleated RBC % 0 11/29/22 06:20: Sodium 137, Potassium 3.6, Chloride 105, Carbon Dioxide 25.0, Anion Gap 7, BUN 13, Creatinine 0.99, Estim Creat Clear Calc 85.00, Est GFR (MDRD) Af Amer 100, Est GFR (MDRD) Non-Af 83, BUN/Creatinine Ratio 13.1, [id number] H, Calcium 9.0, Total Bilirubin 0.70, AST 19, ALT 22, Alkaline Phosphatase 68, Total Protein 7.4, Albumin 3.8, Globulin 3.6, Albumin/Globulin Ratio 1.1, Lipase 2333 H 11/29/22 11:02: POC Glucose 178 H 11/29/22 15:20: POC Glucose 220 H Assessment & Plan Assessment/Plan (1) Acute pancreatitis: PLAN: ?Acute pancreatitis possibly secondary to alcoholic pancreatitis.? His last MRI that he had did not show any signs of pancreatic divisum. His previousMRI was not a good study secondary to mild ascites but there was no signs of pancreatic masses or obstructive physiology. Previously his pancreatitis was at the head in genu of the pancreas.? His hematocrit has been decreasing very well with IV fluids.? He still having some abdominal pain.? I suspect that it is from mild paralytic ileus associated with acute pancreatitis in the setting of diabetes mellitus and some possible mechanical gastroparesis. ?Recommend azithromycin 500 mg IV once a day to increase motility of the small bowel.? I would also give him Reglan 5 mg every 6 hours [id number]-[id number].? I would give him Colace 100mg p.o. twice daily and I would repeat his CT scan of the abdomen pelvis tomorrow to make sure he has no signs of gastric outlet obstruction, worsening ileus and less likely necrosis.? Depending on what the CTscan abdomen pelvis shows he may need a procedure for therapeutic purposes. There is also possibility that he has type II autoimmune pancreatitis. When he was here previously I had drawn IgG4 level and gammaglobulins and we will both normal. That typically rules out type I autoimmune hepatitis. He has not had an endoscopic ultrasound with biopsies of the pancreas. I believe as per the patient he did not have that due to increased risk of pancreatitis with fine-needle aspiration. The only other type of pancreatitis that I think he would beat most risk for his chronic pancreatitis secondary to alcoholism and acute recurrent pancreatitis. He does not have gross calcifications and I do not see any ductal dilation on his previous MRCP that he had last year. 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 If he does have a good response then we will decrease him down to 0.3 mg/kg as an outpatient. Depending on his repeat imaging whether he would benefit from possible endoscopic procedure. Charges/Coding Visit Charges Inpatient E&M: 73926 Init Hosp L3 12/01/221814 <Electronically signed by Taras Friend DO> Cosigner Signature (if applicable): CC: Dr. Mayelin Pedraza MD; Dr. Lobito Maldonado MD~ Signed [facility] Work Phone: 1(778) 214-716103-09-[address] Tidwell [facility] December 01, 2022 4:39pm Note Date/Time December 01, 2022 11:3 5am [facility] Medical Records Department [address] [place] [address] Progress Note 12/01/22 1132 MR#: [id number] Acct: [id number] Name: BRONSON WELLER Rep #:[id number] : 1965 57 From: Veena Tidwell MD PCP: Dr. Lobito Maldonado MD Status:A DM IN Location: MS3 [id number] Subjective Subjective Patient seen and examined. He said he still had some abdominal pain which he thinks was due to him advancing his diet. He denied any nausea, vomiting, diarrhea, fever or chills or any other symptoms. REview of systems is otherwise negative. He has remained hemodynamically stable. Objective Data Objective Data Vital Signs: Vital Signs Temp Pulse Resp BP Pulse Ox O2 Del Method 97.9 F 85 18 142/100 H 99 Room Air 12/01/22 08:30 12/01/22 08:30 12/01/22 08:30 12/01/22 08:30 12/01/22 08:30 12/01/22 08:30 Oxygen Delivery Method Room Air Weight: 190 lb 7.67 oz Body Mass Index (BMI) 27.3 Intake & Output: Intake and Output for Last 24 Hours 11/29/22 11/30/22 12/01/22 23:59 23:59 23:59 Intake Total 3795.0 / 3795.0 3807.5 / 3807.5 1994 Balance 3795.0 / 3795.0 3807.5 / 3807.5 1994 Lab / Micro Data Result Diagrams: 12/01/22 06:00 12/01/22 06:00 Labs: Laboratory Results - last 24 hr 11/30/22 11:46: POC Glucose 235 H 11/30/22 17:29: POC Glucose 319 H 11/30/22 21:02: POC Glucose 205 H 11/30/22 23:48: POC Glucose 189 H 12/01/22 06:00: WBC 12.8 H, RBC 3.87 L, Hgb 12.1 L, Hct 35.4 L, MCV 91.5, MCH 31.3, MCHC 34.2, RDW Std Deviation 40.6, RDW Coeff of Armin 12.2, Plt Count 174, MPV 9.8, Immature Gran % (Auto) 0.700, Neut % (Auto) 70.5 H, Lymph % (Auto) 22.1, [place] % (Auto) 6.4, Eos % (Auto) 0.1, Baso % (Auto) 0.2, Absolute Neuts (auto) 9.1 H, Absolute Lymphs (auto) 2.84, Nucleated RBC % 0 12/01/22 06:00: Sodium 139, Potassium 3.3 L, Chloride 110 H, Carbon Dioxide 23.0, Anion Gap 6, BUN 8, Creatinine 0.86, Estim Creat Clear Calc 97.85, Est GFR(MDRD) Af Amer 118, Est GFR (MDRD) Non-Af 98, BUN/Creatinine Ratio 9.3 L, Glucose 163 H, Calcium 8.5, Total Bilirubin 1.00, AST 15, ALT 16, Alkaline Phosphatase 60, Total Protein 7.5, Albumin 3.6, Globulin 3.9, Albumin/Globulin Ratio 0.9 12/01/22 06:00: ESR 27 H 12/01/22 06:00: C-React Prot Ext Range 27.20 H, Amylase 67, Lipase 593 H Physical Exam Const alert, oriented x3 and no apparent distress General Appearance: cooperative HEENT normocephalic, head/scalp atraumatic and moist oral mucous membranes Eyes PERRL and EOMs intact bilaterally Neck no lymphadenopathy and supple General: trachea midline Lymph Lymphatic: no lymphadenopathy noted Resp normal respiratory effort, normal air movement and clear to auscultation bilaterally Cardio regular rate, regular rhythm, S1 normal heart sound, S2 normal heart sound and no murmurs GI normal to inspection, nondistended, normoactive bowel sounds GI Narrative: abdomen soft, nontender, no organomegaly Extremity normal capillary refill, no clubbing, cyanosis or edema and no calf tenderness Skin General Skin Exam: no breakdown Neuro CN's II-XII intact bilaterally, no focal motor deficits and no sensory deficits noted Motor Exam: strength 5/5 throughout Psych thought process normal Assessment & Plan Assessment/Plan (1) Abdominal pain: (2) Nausea: (3) Acute pancreatitis: PLAN: Plan #Acute on chronic pancreatitis * he was started on a diet yesterday but says this aggravated his pain * will place back on clear liquid diet * continue IV dilaudid prn for pain * on Creon. * try to advance from clear liquid diet today if tolerated. * * #Type 2 diabetes mellitus: hold lantus. ISS. Accuchecks ACHS #History of stroke: On aspirin and statin #History of seizures: On Keppra #Hypertension: On amlodipine and losartan #BPH: on flomax #History of liver fibrosis: on ursodiol #Depression and anxiety: on amitryptiline and escitalopram DVT prophylaxis: lovenox Charges/Coding Visit Charges Inpatient E&M: 36917 Subs Hosp L2 12/01/22 1639 <Electronically signed by Veena Tidwell MD> Veena Tidwell MD Cosign Signature (if applicable): CC: ~ Signed [facility] Work Phone: [phone]) 685-839303-09-2023 Miscellaneous Notes* Telephone Encounter - Rhona Samayoa LPN - 12/01/2022 3:22 PM EST Spoke to [facility], they did receive RX and will contact Patient when it is ready for pickup. Rhona Samayoa LPN * Telephone Encounter - Lobito Maldonado MD - 12/01/2022 1:04 PM EST Patient's request for medication is as follows Requested Prescriptions Signed Prescriptions Disp Refills sbmuzn-xibxjutl-lubwjak (CREON) 12,000-38,000 -60,000 unit delayed release capsule 90 capsule 5 Sig: Take 1 capsule by mouth three times daily with meals. Authorizing Provider: LOBITO MALDONADO Order entered - please phone pharmacy and notify patient. Lobito Maldonado MD * Telephone Encounter - Tonio Jackson RN - 12/01/2022 9:08 AM EST [place] pharmacy reports patient was prescribed Creon 14711 units 1 capsule 3 times day before meals and/or snacks, #90 with refills, in August, by a hospital. Patient needs refill. Asking if pcp would send refill for this medication? It is not on patient's current med list. [facility] Tidwell [facility] November 30, 2022 5:30pm Note Date/Time November 30, 2022 11:3 2am [facility] Medical Records Department [address] [place] [id number] Progress Note 11/30/22 1126 MR#: [id number] Acct: [id number] Name: BRONSON WELLER Rep #:[id number] : 1965 57 From: Veena Tidwell MD PCP: Dr. Lobito Maldonado MD Status:A DM IN Location: CA3 [id number] Subjective Subjective Patient seen and examined. His abdominal pain had improved. He was ready to start a diet. He denied any fever, chills, shortness of breath, nausea vomitingor diarrhea. Review of systems otherwise negative. Objective Data Objective Data Vital Signs: Vital Signs Temp Pulse Resp BP Pulse Ox O2 Del Method 97.9 F 87 18 131/95 H 97 Room Air 11/30/22 08:09 11/30/22 08:09 11/30/22 08:09 11/30/22 08:09 11/30/22 08:09 11/30/22 08:11 Oxygen Delivery Method Room Air Weight: 185 lb 6.54 oz Body Mass Index (BMI) 26.6 Intake & Output: Intake and Output for Last 24 Hours 11/28/22 11/29/22 11/30/22 23:59 23:59 23:59 Intake Total 3795.0 / 3795.0 1697.5 / 1697.5 Balance 3795.0 / 3795.0 1697.5 / 1697.5 Lab / Micro Data Result Diagrams: 11/30/22 08:25 11/30/22 08:25 Labs: Laboratory Results - last 24 hr 11/29/22 11:02: POC Glucose 178 H 11/29/22 15:20: POC Glucose 220 H 11/29/22 21:46: POC Glucose 221 H 11/29/22 23:33: POC Glucose 196 H 11/30/22 05:52: POC Glucose 189 H 11/30/22 08:25: WBC 10.5, RBC 3.72 L, Hgb 11.9 L, Hct 34.3 L, MCV 92.2, MCH 32.0, MCHC 34.7, RDW Std Deviation 41.1, RDW Coeff of Armin 12.2, Plt Count 150, MPV 9.1, Immature Gran % (Auto) 0.900, Neut % (Auto) 80.3 H, Lymph % (Auto) 13.7 L, [place] % (Auto) 4.9, Eos % (Auto) 0.0, Baso % (Auto) 0.2, Absolute Neuts (auto)8.4 H, Absolute Lymphs (auto) 1.44, Nucleated RBC % 0 11/30/22 08:25: Sodium 138, Potassium 3.5, Chloride 107, Carbon Dioxide 23.0, Anion Gap 8, BUN 10, Creatinine 0.91, Estim Creat Clear Calc 92.48, Est GFR (MDRD) Af Amer 111, Est GFR (MDRD) Non-Af 91, BUN/Creatinine Ratio 11.0, [id number] H, Calcium 8.4 L 11/30/22 08:25: ESR 28 H 11/30/22 08:25: C-React Prot Ext Range 64.40 H, Amylase 75, Lipase 423 H Radiography Diagnostic Testing: Radiology Impression Abdomen/Pelvis CT 11/30/22 05:55 IMPRESSION: Minimal stranding adjacent to the pancreas. Findings consistent with mild pancreatitis, with a similar appearance to the previous exam. No evidence of pancreatic necrosis or pseudocyst. Electronically Signed: Manohar Obrien MD at 6:40 EST , Physical Exam Const alert, oriented x3 and no apparent distress General Appearance: cooperative HEENT normocephalic, head/scalp atraumatic and moist oral mucous membranes Eyes PERRL and EOMs intact bilaterally Neck no lymphadenopathy and supple General: trachea midline Lymph Lymphatic: no lymphadenopathy noted Resp normal respiratory effort, normal air movement and clear to auscultation bilaterally Cardio regular rate, regular rhythm, S1 normal heart sound, S2 normal heart sound and no murmurs GI normal to inspection, nondistended, normoactive bowel sounds GI Narrative: minimal epigastric tenderness, no guarding or rebound tenderness. Extremity normal capillary refill, no clubbing, cyanosis or edema and no calf tenderness Skin General Skin Exam: no breakdown Neuro CN's II-XII intact bilaterally, no focal motor deficits and no sensory deficits noted Motor Exam: strength 5/5 throughout Assessment & Plan Assessment/Plan (1) Abdominal pain: (2) Nausea: (3) Acute pancreatitis: PLAN: Plan #Acute on chronic pancreatitis * abdominal pain is improving. * he denies drinking alcohol. cause of pancreatitis is not clear * lipase has trended down * will put on full liquid diet today, and advance as tolerated. * IV pain medication- IV dilaudid * on Creon. * DC IVF once he is tolerating fluids * #Type 2 diabetes mellitus: hold lantus. ISS. Accuchecks ACHS #History of stroke: On aspirin and statin #History of seizures: On Keppra #Hypertension: On amlodipine and losartan #BPH: on flomax #History of liver fibrosis: on ursodiol #Depression and anxiety: on amitryptiline and escitalopram DVT prophylaxis: lovenox Charges/Coding Visit Charges Inpatient E&M: 45694 Subs Hosp L2 11/30/22 1730 <Electronically signed by Veena Tidwell MD> Veena Tidwell MD Cosigner Signature (if applicable): CC: ~ Signed [facility] Work Phone: [phone]) [phone] Progress note Author Taras Friend [facility] November 30, 2022 12:56pm Note Date/Time November 30, 2022 12:5 6pm [facility] Medical Records Department [address] [place] [address] Progress Note 11/30/22 1253 MR#: [id number] Acct: [id number] Name: BRONSON WELLER Rep #:[id number] : 1965 57 From: Taras Friend DO PCP: Dr. Lobito Maldonado MD Status:A DM IN Location: MS3 [id number] Subjective Subjective He thinks that the steroids might be helping. His blood work has been improving. His abdominal pain is a little bit better. He rates it at a 8 out of 10 which is down from. He states that he is starting to get hungry. Objective Data Objective Data Vital Signs: Vital Signs Temp Pulse Resp BP Pulse Ox O2 Del Method 97.9 F 87 18 131/95 H 97 Room Air 11/30/22 08:09 11/30/22 08:09 11/30/22 08:09 11/30/22 08:09 11/30/22 08:09 11/30/22 08:11 Oxygen Delivery Method Room Air Weight: 185 lb 6.54 oz Body Mass Index (BMI) 26.6 Intake & Output: Intake and Output for Last 24 Hours 11/28/22 11/29/22 11/30/22 23:59 23:59 23:59 Intake Total 3795.0 / 3795.0 1697.5 / 1697.5 Balance 3795.0 / 3795.0 1697.5 / 1697.5 Lab / Micro Data Result Diagrams: 11/30/22 08:25 11/30/22 08:25 Labs: Laboratory Results - last 24 hr 11/29/22 15:20: POC Glucose 220 H 11/29/22 21:46: POC Glucose 221 H 11/29/22 23:33: POC Glucose 196 H 11/30/22 05:52: POC Glucose 189 H 11/30/22 08:25: WBC 10.5, RBC 3.72 L, Hgb 11.9 L, Hct 34.3 L, MCV 92.2, MCH 32.0, MCHC 34.7, RDW Std Deviation 41.1, RDW Coeff of Armin 12.2, Plt Count 150, MPV 9.1, Immature Gran % (Auto) 0.900, Neut % (Auto) 80.3 H, Lymph % (Auto) 13.7L, [place] % (Auto) 4.9, Eos % (Auto) 0.0, Baso % (Auto) 0.2, Absolute Neuts (auto)8.4 H, Absolute Lymphs (auto) 1.44, Nucleated RBC % 0 11/30/22 08:25: Sodium 138, Potassium 3.5, Chloride 107, Carbon Dioxide 23.0, Anion Gap 8, BUN 10, Creatinine 0.91, Estim Creat Clear Calc 92.48, Est GFR (MDRD) Af Amer 111, Est GFR (MDRD) Non-Af 91, BUN/Creatinine Ratio 11.0, [id number] H, Calcium 8.4 L 11/30/22 08:25: ESR 28 H 11/30/22 08:25: C-React Prot Ext Range 64.40 H, Amylase 75, Lipase 423 H 11/30/22 11:46: POC Glucose 235 H Radiography Diagnostic Testing: Radiology Impression Abdomen/Pelvis CT 11/30/22 05:55 IMPRESSION: Minimal stranding adjacent to the pancreas. Findings consistent with mild pancreatitis, with a similar appearance to the previous exam. No evidence of pancreatic necrosis or pseudocyst. Electronically Signed: Manohar Obrien MD at 6:40 EST , Physical Exam Const alert, oriented x3 and no apparent distress General Appearance: cooperative HEENT normocephalic, head/scalp atraumatic and moist oral mucous membranes Eyes PERRL and EOMs intact bilaterally Neck no lymphadenopathy and supple General: trachea midline Lymph Lymphatic: no lymphadenopathy noted Resp normal respiratory effort, normal air movement and clear to auscultation bilaterally Cardio regular rate, regular rhythm, S1 normal heart sound, S2 normal heart sound and no murmurs GI normal to inspection, nondistended, normoactive bowel sounds GI Narrative: minimal epigastric tenderness, no guarding or rebound tenderness. Extremity normal capillary refill, no clubbing, cyanosis or edema and no calf tenderness Skin General Skin Exam: no breakdown Neuro CN's II-XII intact bilaterally, no focal motor deficits and no sensory deficits noted Motor Exam: strength 5/5 throughout Assessment & Plan Assessment/Plan (1) Acute pancreatitis: PLAN: ?Acute pancreatitis possibly secondary to alcoholic pancreatitis.? His last MRI that he had did not show any signs of pancreatic divisum. His previousMRI was not a good study secondary to mild ascites but there was no signs of pancreatic masses or obstructive physiology. Previously his pancreatitis was at the head in genu of the pancreas.? His hematocrit has been decreasing very well with IV fluids.? He still having some abdominal pain.? I suspect that it is from mild paralytic ileus associated with acute pancreatitis in the setting of diabetes mellitus and some possible mechanical gastroparesis. ?Recommend azithromycin 500 mg IV once a day to increase motility of the small bowel.? I would also give him Reglan 5 mg every 6 hours cnzlsv-ueh-knkbt.? I would give him Colace 100mg p.o. twice daily and I would repeat his CT scan of the abdomen pelvis tomorrow to make sure he has no signs of gastric outlet obstruction, worsening ileus and less likely necrosis.? Depending on what the CTscan abdomen pelvis shows he may need a procedure for therapeutic purposes. There is also possibility that he has type II autoimmune pancreatitis. When he was here previously I had drawn IgG4 level and gammaglobulins and we will both normal. That typically rules out type I autoimmune hepatitis. He has not had an endoscopic ultrasound with biopsies of the pancreas. I believe as per the patient he did not have that due to increased risk of pancreatitis with fine-needle aspiration. The only other type of pancreatitis that I think he would beat most risk for his chronic pancreatitis secondary to alcoholism and acute recurrent pancreatitis. He does not have gross calcifications and I do not see any ductal dilation on his previous MRCP that he had last year. 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 If he does have a good response then we will decrease him down to 0.3 mg/kg as an outpatient. Depending on his repeat imaging whether he would benefit from possible endoscopic procedure. 2022-his CRP is 64 and his ESR is elevated at 28. His lipase is coming with IV fluids and hopefully is improving secondary to steroid therapy. Workingdiagnosis at this time is type II pancreatitis being that his IgG4 was normal and he does not have any other signs or symptoms of progressive pancreatitis. He has had other criteria for early pancreatitis including a pancreatic lesion in the head and the tail which is improved. His MRCP did not show any signs of stricturing disease or chronic pancreatitis. He still has a possibility of chronic pancreatitis. He has not undergone endoscopic ultrasound for fine-needle aspiration to determine what his amylase, lipase, K-maninder and CA testing show. For now I will put him on Ensure clear 4 times a day along with introducing full liquid diet. Continue IV fluids at current dose as his hematocrit and BUN are improving as per [place]'s criteria. Charges/Coding Visit Charges Inpatient E&M: 54136 Subs Hosp L3 11/30/22 1256 <Electronically signed by Taras Santamaria DO> Taras Santamaria DO Cosigner Signature (if applicable): CC: ~ Signed [facility] Work Phone: 1([phone] 393-209103-07-[address] Pedraza [facility] November 29, 2022 7:01pm Note Date/Time November 29, 2022 7:01 pm [facility] Medical Records Department [address] [place] [address] Progress Note - Hospitalist 11/29/22 190 MR#: [id number] Acct: [id number] Name: BRONSON WELLER Rep #:[id number] : 1965 57 From: Mayelin Pedraza MD PCP: Dr. Lobito Maldonado MD Status:A DM IN Location: [place] [address] Hospitalist Note Per GI recommendations will add azithromycin 500 mg IV to start now, colace 100 mg BID, scheduled reglan 5 mg q 6 hours and plan repeat CT A/P in AM to further assess. 11/29/221900 <Electronically signed by Mayelin Pedraza MD> Cosigner Signature (if applicable): CC: ~ Signed [facility] Work Phone: 1(523) 413-679603-07-[address] Tidwell [facility] November 29, 2022 5:39pm Note Date/Time November 29, 2022 1:09 pm [facility] Medical Records Department [address] [place] [address] Progress Note 11/29/22 1258 MR#: [id number] Acct: [id number] Name: BRONSON WELLER Rep #:[id number] : 1965 57 From: Veena Tidwell MD PCP: Dr. Lobito Maldonado MD Status:A DM IN Location: MS3 [id number] Subjective Subjective Patient seen and examined. He still complained of epigastric pain. He denied ANYfever, chills, nausea or diarrhea. Review of systems is otherwise negative. He has remained hemodynamically stable. Objective Data Objective Data Vital Signs: Vital Signs Temp Pulse Resp BP Pulse Ox O2 Del Method 98.1 F 89 16 145/92 H 98 Room Air 11/29/22 11:38 11/29/22 11:38 11/29/22 11:38 11/29/22 11:38 11/29/22 11:38 11/29/22 11:38 Oxygen Delivery Method Room Air Weight: 181 lb 14.102 oz Body Mass Index (BMI) 26.0 Intake & Output: Intake and Output for Last 24 Hours 11/27/22 11/28/22 11/29/22 23:59 23:59 23:59 Intake Total 2109 Balance 2109 Lab / Micro Data Result Diagrams: 11/29/22 06:20 11/29/22 06:20 Labs: Laboratory Results - last 24 hr 11/28/22 23:55: WBC 15.9 H, RBC 4.64, Hgb 14.9, Hct 42.1, MCV 90.7, MCH 32.1 H, MCHC 35.4, RDW Std Deviation 39.1, RDW Coeff of Armin 11.8, Plt Count 225, MPV 9.4, Immature Gran % (Auto) 0.400, Neut % (Auto) 78.1 H, Lymph % (Auto) 14.0 L, [place] % (Auto) 6.5, Eos % (Auto) 0.6, Baso % (Auto) 0.4, Absolute Neuts (auto) 12.4 H, Absolute Lymphs (auto) 2.22, Nucleated RBC % 0.1 11/28/22 23:55: Sodium 134 L, Potassium 3.5, Chloride 100, Carbon Dioxide 26.0, Anion Gap 8, BUN 15, Creatinine 1.17, Estim Creat Clear Calc 71.93, Est GFR (MDRD) Af Amer 82, Est GFR (MDRD) Non-Af 68, BUN/Creatinine Ratio 12.8, Glucose 223 H, Calcium 9.9, Total Bilirubin 0.80, AST 13 L, ALT 20, Alkaline [id number], Total Protein 8.3 H, Albumin 4.3, Globulin 4.0, Albumin/Globulin Ratio 1.1, Lipase 2513 H 11/28/22 23:55: Phosphorus 3.3, Magnesium 1.6 11/29/22 01:15: Ethyl Alcohol < 3.0 11/29/22 04:16: POC Glucose 213 H 11/29/22 06:20: WBC 12.8 H, RBC 4.18 L, Hgb 13.3, Hct 38.5 L, MCV 92.1, MCH 31.8, MCHC 34.5, RDW Std Deviation 40.2, RDW Coeff of Armin 11.9, Plt Count 197, MPV 9.6, Immature Gran % (Auto) 0.500, Neut % (Auto) 75.2 H, Lymph % (Auto) 16.2L, [place] % (Auto) 7.3, Eos % (Auto) 0.5, Baso % (Auto) 0.3, Absolute Neuts (auto)9.6 H, Absolute Lymphs (auto) 2.07, Nucleated RBC % 0 11/29/22 06:20: Sodium 137, Potassium 3.6, Chloride 105, Carbon Dioxide 25.0, Anion Gap 7, BUN 13, Creatinine 0.99, Estim Creat Clear Calc 85.00, Est GFR (MDRD) Af Amer 100, Est GFR (MDRD) Non-Af 83, BUN/Creatinine Ratio 13.1, [id number] H, Calcium 9.0, Total Bilirubin 0.70, AST 19, ALT 22, Alkaline Phosphatase 68, Total Protein 7.4, Albumin 3.8, Globulin 3.6, Albumin/Globulin Ratio 1.1, Lipase 2333 H 11/29/22 11:02: POC Glucose 178 H Physical Exam Const oriented x3 and no apparent distress General Appearance: cooperative HEENT normocephalic, head/scalp atraumatic and moist oral mucous membranes Eyes PERRL and EOMs intact bilaterally Neck no lymphadenopathy and supple General: trachea midline Lymph Lymphatic: no lymphadenopathy noted Resp normal respiratory effort, normal air movement and clear to auscultation bilaterally Cardio regular rate, regular rhythm, S1 normal heart sound, S2 normal heart sound and no murmurs GI normal to inspection, nondistended, normoactive bowel sounds GI Narrative: mild epigastric tenderness, no guarding or rebound tenderness. Extremity normal capillary refill, no clubbing, cyanosis or edema and no calf tenderness Skin General Skin Exam: no breakdown Neuro CN's II-XII intact bilaterally, no focal motor deficits and no sensory deficits noted Motor Exam: strength 5/5 throughout Assessment & Plan Assessment/Plan (1) Abdominal pain: (2) Nausea: (3) Acute pancreatitis: PLAN: Plan #Acute on chronic pancreatitis * still complains of abdominal pain * he denies drinking alcohol. cause of pancreatitis is not clear * lipase today is 2333 * continue keeping NPO * hydrate aggressively with IVF * IV pain medication- IV dilaudid * on Creon. * #Type 2 diabetes mellitus: hold lantus. ISS. Accuchecks ACHS #History of stroke: On aspirin and statin #History of seizures: On Keppra #Hypertension: On amlodipine and losartan #BPH: on flomax #History of liver fibrosis: on ursodiol #Depression and anxiety: on amitryptiline and escitalopram DVT prophylaxis: lovenox Charges/Coding Visit Charges Inpatient E&M: 06530 Subs Hosp L3 11/29/22 1739 <Electronically signed by Veena Tidwell MD> Veena Tidwell MD Cosigner Signature (if applicable): CC: ~ Signed [facility] Work Phone: [phone] 250-250703-07-2023 History and physical note Author Dr. Pedraza [facility] November 29, 2022 3:28am Note Date/Time November 29, 2022 2:44 am [facility] Medical Records Department [address] [place] [address] History & Physical Exam 11/29/22 0239 MR#: [id number] Acct: [id number] Name: BRONSON WELLER Rep #:[id number] : 1965 57 From: Mayelin Pedraza MD PCP: Dr. Lobito Maldonado MD Status:A DM IN Location: MS3 [id number] HPI - General General Date of Admission: 11/29/22 Date of Service: 11/29/22 Chief Complaint: Recurrent epigastric pain, nausea without emesis. HPI Narrative The patient is a 57 y/o M w/ PMHx: Anxiety and Depression, HTN, HLD, Diabetes mellitus type II w/ chronic neuropathy, Chronic pain syndrome, Former tobacco use, GERD w/ Hx GI bleed w/ Gastric ulcer, Hx TIA/CVA, Seizure disorder, BPH, EtOH abuse with history of liver fibrosis reporting sober x 2 months, Hx recurrent Acute Pancreatitis most recently treated and evaluated w/ discharge 09/08/22 with history of cholecystectomy previously, not markedly elevated triglyceride level and denies persistent alcohol abuse currently who re-presentsto the [facility] ED on 11/29/22 with history of recurrent epigastric abdominal pain reporting that he is not been drinking and attempting to have a healthier intakewith the evening prior reported his dinner is an egg roll with more abdominal discomfort following with some mild radiation toward the right with nausea withoutemesis with still ongoing ability to eat and no fevers or chills but given persistent ongoing pain prompted ED evaluation. He notes this pain is similar to his recent admission for acute pancreatitis, sharp severe 9/10 pain prior to arrival and now following pain medications 7/10 in severity with continued improvement. Work-up in the ED included T96.9, heart rate 108, BP 134/91, respiratory rate 18, CBC with WBC 15.9, hemoglobin 14.9, platelet 225 with left shift, CMP with sodium 134, glucose 223, hepatic profile with T. bili 0.8, AST/ALT 13/20, alk phos 71 otherwise not marked appearing, lipase 2513, ethyl alcohol less than 3. In the ED patient ministered Phenergan 12.5 mg IM IM x1, Zofran 4 mg IV x1, Dilaudid 0.5 mg IV x2, Benadryl 25 mg IV x1 as well as 1 L normal saline bolus. FORMERLY [facility], [facility] Medical History (Updated 11/29/22 @ 03:[address] Magno Mora MD) Alcohol abuse Anxiety and depression Cancer Constipation Diabetes Essential (primary) hypertension Family history of cerebral aneurysm Former tobacco use Gastric ulcer GERD (gastroesophageal reflux disease) GI bleed Glaucoma Hyperlipidemia Myocardial infarct Neck pain Pancreatitis Polyneuropathy PSA elevation PTSD (post-traumatic stress disorder) Seizure disorder Stroke/cerebrovascular accident TIA (transient ischemic attack) Vision loss of left eye Vision loss of right eye Home Medications nitroglycerin 0.4 mg sublingual tablet 0.4 mg sublingual Q5M PRN Chest Pain 07/15/13 [History Last Taken 08/22/15] amitriptyline 25 mg tablet 25 mg PO QHS depression 07/03/18 [History Last Taken 09/05/22] cholecalciferol (vitamin D3) 125 mcg (5,000 unit) capsule 1 cap PO DAILY supplement 11/09/18 [History Last Taken 09/06/22] hydrochlorothiazide 25 mg tablet 25 mg PO DAILY blood pressure/heart #30 tabs 06/05/20 [Rx Last Taken 09/06/22] gabapentin 300 mg capsule 300 mg PO BID nerve pain 10/06/20 [History Last Taken 09/05/22] insulin glargine 100 unit/mL subcutaneous solution (Lantus U-100 Insulin) 10 unit SQ QHS diabetes 12/30/20 [History Last Taken 09/04/22] latanoprost 0.005 % eye drops 1 drp EACH EYE QHS glaucoma 12/07/21 [History Last Taken 09/05/22] magnesium oxide 400 mg (241.3 mg magnesium) tablet 400 mg PO BID supplement 02/27/22 [History Last Taken 09/06/22] pantoprazole 40 mg tablet,delayed release 40 mg PO DAILY gerd 02/27/22 [History Last Taken 09/06/22] pravastatin 40 mg tablet 60 mg PO QHS cholesterol 02/27/22 [History Last Taken 09/05/22] tamsulosin 0.4 mg capsule 0.4 mg PO QHS prostate 02/27/22 [History Last Taken 09/05/22] metformin 500 mg tablet 500 mg PO BID diabetes #0 tabs 03/04/22 [Rx Last Taken 09/06/22] aspirin 81 mg tablet,delayed release 81 mg PO DAILY heart health 07/04/22 [History Last Taken 09/06/22] escitalopram oxalate 10 mg tablet 10 mg PO DAILY depression 07/04/22 [History Last Taken 09/06/22] fluticasone propionate 50 mcg/actuation nasal spray,suspension (Flonase Allergy Relief) 2 spray intranasal DAILY allergies 07/04/22 [History Last Taken 09/04/22] loratadine 10 mg capsule 10 mg PO DAILY allergies 07/04/22 [History Last Taken 09/06/22] losartan 25 mg tablet 25 mg PO DAILY blood pressure 07/04/22 [History Last Taken 09/06/22] omega-3 fatty acids-fish oil 684 mg-1,200 mg capsule,delayed release 2 cap PO DAILY supplement 07/04/22 [History Last Taken 09/06/22] amlodipine 10 mg tablet 10 mg PO DAILY blood pressure #90 tabs 07/27/22 [Rx Last Taken 09/06/22] levetiracetam 500 mg tablet 500 mg PO BID seizures #60 tabs 08/08/22 [Rx Last Taken 09/06/22] naproxen 500 mg tablet 500 mg PO BID PRN Pain 09/06/22 [History Last Taken Unknown] simethicone 80 mg chewable tablet (Gas Relief 80 (simethicone)) 80 mg PO DAILY PRN gas relief 09/06/22 [History Last Taken Unknown] folic acid 1 mg tablet 1 mg PO BREAKFAST #30 tabs 09/08/22 [Rx Last Taken Unknown] grsmka-ubcbqxys-xffhrtk 12,000-38,000-60,000 unit capsule,delayed rel (Creon) 1 cap PO .TIDAC 30 days #90 caps 09/08/22 [Rx Last Taken Unknown] thiamine HCl (vitamin B1) 100 mg tablet (Vitamin B-1) 100 mg PO BREAKFAST #30 tabs 09/08/22 [Rx Last Taken Unknown] ursodiol 250 mg tablet 250 mg PO BID liver fibrosis #180 tabs 09/21/22 [Rx Last Taken Unknown] levocarnitine 330 mg tablet 330 mg PO BID #60 tabs 09/28/22 [Rx Last Taken Unknown] Allergy/AdvReac Type Severity Reaction Status Date / Time lisinopril Allergy Angioedema Verified 11/09/22 16:17 cyclobenzaprine AdvReac Severe Skin Verified 11/09/22 16:17 crawling Iodinated Contrast Media AdvReac Intermediate ITCHY FEET Verified 11/09/22 16:17 [iodine contrast] hydrocodone bitartrate AdvReac Itching Verified 11/09/22 16:17 [From Vicodin] hydromorphone [From Dilaudid] AdvReac Itching Verified 11/09/22 16:17 morphine AdvReac Itching Verified 11/09/22 16:17 tramadol AdvReac Itching Verified 11/09/22 16:17 Family History (Updated 11/29/22 @ 03:[address] Mayelin Pedraza MD) Mother Heart disease Sister Cerebral aneurysm Father Diabetes Kidney disease Anxiety and depression Surgical History (Updated 11/29/22 @ 03:[address] Mayelin Pedraza MD) History of cholecystectomy (12/2013) History of left heart catheterization (10/31/11) Social History (Updated 11/29/22 @ 03:[address] Mayelin Pedraza MD) household members: none Smoking Status: Former smoker Tobacco: How many years used: 7 Electronic Cigarette Use: not used alcohol intake: former details: 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 substance use type: does not use caffeine: No robbin/tenriism: Tenriism seatbelt use: always ROS ROS Narrative Admission Review of Systems: CONSTITUTIONAL: No weight loss, fever, chills, +weakness or fatigue. HEENT: + History of bilateral vision deficits. Eyes: No double vision or yellow sclerae. Ears, Nose, Throat: No hearing loss, sneezing, congestion, runny nose or sore throat. SKIN: + Pruritus following recent pain regimen which is a chronic issue. CARDIOVASCULAR: No chest pain, chest pressure or chest discomfort, palpitations,edema, orthopnea, syncopal events. RESPIRATORY: No shortness of breath, cough or sputum, wheezing, hemoptysis. GASTROINTESTINAL: + anorexia, nausea without vomiting, abdominal pain, No diarrhea, melena, BRBPR. GENITOURINARY: No dysuria, frequency, urgency or retention. NEUROLOGICAL: No headache, dizziness, syncope, paralysis, ataxia, numbness or tingling in the extremities, focal weakness, change in bowel or bladder control,seizure. MUSCULOSKELETAL: + muscle, back pain, joint pain or stiffness. HEMATOLOGIC: + easy bleeding or bruising. LYMPHATICS: No enlarged nodes. No history of splenectomy. PSYCHIATRIC: + history of depression or anxiety. ENDOCRINOLOGIC: No reports of sweating, cold or heat intolerance. No polyuria orpolydipsia. ALLERGIES: + history of angioedema, rhinitis. Vital Signs Vital Signs Vital Signs: 11/28/22 21:43 11/28/22 21:44 Temperature 96.9 F L 96.9 F L Temperature Source Temporal Temporal Pulse Rate 108 H 108 H Respiratory Rate 18 18 Blood Pressure 134/91 H 134/91 H Blood Pressure Mean 105 105 Weight Weight: 182 lb 5.156 oz Body Mass Index (BMI) 26.2 Physical Exam Narrative Physical Examination: General: Awake, alert, oriented x 3 and cooperative, seated upright in the ED bed, itching, notes pain improving, currently 7/10. Skin: Normal color, normal turgor, no icterus, no cyanosis. HEENT: AT/NC, EOMI, PERRLA, dry MM, no carotid bruits or JVD noted. Lungs: Mild diminished, greater bases, appropriate effort, no rales, ronchi or wheezing. Heart: Regular rate and rhythm; no gallop, rub audible. Abdomen: Soft, notably improved, no marked discomfort with palpation of the epigastric region or the right upper quadrant, no guarding or rebound, no obvious distention, mildly hyperactive bowel sounds, + HM. Extremities: No cyanosis, clubbing, or edema. Neurological: Patient awake, alert, oriented as noted, cognitive function intact; pupils equally reactive to light and accommodation, cranial nerves II-XIIgrossly normal, moving all 4 extremities, no focal deficits, strength improving,mildly to moderately global decrease. Psychiatric: Affect appears mildly uncomfortable but improving, no acute evidence of depressive or anxiety feelings but does have underlying history. Results Lab / Micro Data Result Diagrams: 11/28/22 23:55 11/28/22 23:55 Labs: Laboratory Results - last 24 hr 11/28/22 23:55: WBC 15.9 H, RBC 4.64, Hgb 14.9, Hct 42.1, MCV 90.7, MCH 32.1 H, MCHC 35.4, RDW Std Deviation 39.1, RDW Coeff of Armin 11.8, Plt Count 225, MPV 9.4, Immature Gran % (Auto) 0.400, Neut % (Auto) 78.1 H, Lymph % (Auto) 14.0 L, [place] % (Auto) 6.5, Eos % (Auto) 0.6, Baso % (Auto) 0.4, Absolute Neuts (auto) 12.4 H, Absolute Lymphs (auto) 2.22, Nucleated RBC % 0.1 11/28/22 23:55: Sodium 134 L, Potassium 3.5, Chloride 100, Carbon Dioxide 26.0, Anion Gap 8, BUN 15, Creatinine 1.17, Estim Creat Clear Calc 71.93, Est GFR (MDRD) Af Amer 82, Est GFR (MDRD) Non-Af 68, BUN/Creatinine Ratio 12.8, Glucose 223 H, Calcium 9.9, Total Bilirubin 0.80, AST 13 L, ALT 20, Alkaline [id number], Total Protein 8.3 H, Albumin 4.3, Globulin 4.0, Albumin/Globulin Ratio 1.1, Lipase 2513 H 11/29/22 01:15: Ethyl Alcohol < 3.0 Assessment & Plan Assessment/Plan (1) Pancreatitis: PLAN: Plan The patient is a 57 y/o M w/ PMHx: Anxiety and Depression, HTN, HLD, Diabetes mellitus type II w/ chronic neuropathy, Chronic pain syndrome, Former tobacco use,GERD w/ Hx GI bleed w/ Gastric ulcer, Hx TIA/CVA, Seizure disorder, BPH, EtOH abuse with history of liver fibrosis, Hx recurrent Acute Pancreatitis most recently treated and evaluated w/ discharge 09/08/22 with history of cholecystectomy previously, not markedly elevated triglyceride level and denies persistent alcohol abuse currently who re-presents to the [facility] ED on 11/29/22 with history of recurrent epigastric abdominal pain reporting that he is not been drinking and attempting to have a healthier intake with the evening prior reported his dinner is an egg roll with more abdominal discomfort following withsome mild radiation toward the right with nausea without emesis with still ongoing ability to eat and no fevers or chills but given persistent ongoing painprompted ED evaluation. He notes this pain is similar to his recent admission for acute pancreatitis. #1. Acute pancreatitis w/ abdominal pain, nausea without emesis, recurrent: Will admit to medical surgical floor, will maintain on IVFs, NPO, PPI, IV/po pain control, trend lipase, CMP, ethyl alcohol level unremarkable in the ED, FLPrecently performed therefore will defer, given history of gastric ulcer previously will request GI involvement to assure no recurrent ulcer issues as this certainly could contribute to recurrent pancreatitis but again patient doeshave a strong alcohol abuse history although currently EtOH level negative. #2. History of alcohol abuse reportedly sober x 2 months: Patient reporting sober x 2 months, given recurrent pancreatitis strongly encourage continued complete sobriety, EtOH level negative upon presentation, will continue thiamine, folic acid, case management consulted for substance abuse to continue to encourage sobriety and offer resources. #3. Hypertension: Continue home regimen including amlodipine, losartan, PRN hydralazine. Given presentation temporarily holding hydrochlorothiazide. #4. Diabetes mellitus type II with chronic neuropathy: Hold oral home regimen, continue home insulin regimen, n.p.o. status, every 6 hours accu checks w/ ISS, continue patient on gabapentin regimen. #5. History TIA/CVA: We will continue aspirin pending #1 assessment as noted, statin, hypertensive regimen as noted, diabetic regimen with alterations as noted. #6. History of liver fibrosis: History of alcohol abuse, reportedly decreasing his amount as noted above, we will continue patient home chronic ursodiol regimen. #7. Anxiety and depression: We will continue patient home amitriptyline as wellas escitalopram regimen. #8. Hyperlipidemia: We will continue patient home statin therapy. #9. BPH: We will continue patient on Flomax regimen. #10. Seizure disorder: We will continue patient home Keppra regimen. #11. GERD with history GI bleed, gastric ulcer: We will maintain on IV PPI given presentation. #12. Former tobacco use: Encourage continued tobacco cessation. #13. DVT prophylaxis: Given presentation as noted #1 we will defer chemoprophylaxis, SCDs. #14. CODE status: Patient does not have healthcare power of claims attorney nor livingwill in place but if he did need someone to make medical decisions for him if hecould not it would be his sister. Full Code status. Admission Evaluation Time spent evaluating chart, patient history, patient evaluation, care planning and discussion with specialists: 60 minutes. Charges/Coding Visit Charges Inpatient E&M: 41795 Init Hosp L2 11/29/22 0328 <Electronically signed by Mayelin Pedraza MD> Cosigner Signature (if applicable): CC: Dr. Mayelin Pedrzaa MD; Dr. Lobito Maldonado MD~ Signed [facility] Work Phone: [phone]) 955-801403-07-[address] Mora [facility] November 29, 2022 3:06am Note Date/Time November 28, 2022 11:3 1pm [facility] Medical Records Department [address] [place] [address] Emergency Department Summary 11/28/22 MR#: [id number] Acct: [id number] Name: BRONSON WELLER Rep #:[id number] : 1965 57 From: Magno Mora MD PCP: Dr. Lobito Maldonado MD Status:A DM IN Location: MS3 [id number] HPI HPI - GI History of Present Illness Chief Complaint: Abd Pain Informant: patient Narrative Narrative: Patient presents with abdominal pain. He has a history of recurrent pancreatitis. He states he is taking his medicines. He is not drinking. He istrying to eat healthy with fruits and vegetables. He did have a eggroll cooked in the oven yesterday. After that he seems to have more abdominal pain. It is epigastric and does radiate a little bit toward the right. He is already had his gallbladder out. No other abdominal surgery. He is not having pain in the back at this point but he feels like it might be going there. He is starting toget a little bit nauseated but no vomiting. He has still been eating well sincethis. No fevers or chills. No urinary symptoms. No chest pain no trouble breathing. [facility] Medical History (Updated 11/29/22 @ 03:[address] Magno Mora MD) Alcohol abuse Anxiety and depression Cancer Constipation Diabetes Essential (primary) hypertension Family history of cerebral aneurysm Former tobacco use Gastric ulcer GERD (gastroesophageal reflux disease) GI bleed Glaucoma Hyperlipidemia Myocardial infarct Neck pain Pancreatitis Polyneuropathy PSA elevation PTSD (post-traumatic stress disorder) Seizure disorder Stroke/cerebrovascular accident TIA (transient ischemic attack) Vision loss of left eye Vision loss of right eye Home Medications nitroglycerin 0.4 mg sublingual tablet 0.4 mg sublingual Q5M PRN Chest Pain 07/15/13 [History Last Taken 08/22/15] amitriptyline 25 mg tablet 25 mg PO QHS depression 07/03/18 [History Last Taken 09/05/22] cholecalciferol (vitamin D3) 125 mcg (5,000 unit) capsule 1 cap PO DAILY supplement 11/09/18 [History Last Taken 09/06/22] hydrochlorothiazide 25 mg tablet 25 mg PO DAILY blood pressure/heart #30 tabs 06/05/20 [Rx Last Taken 09/06/22] gabapentin 300 mg capsule 300 mg PO BID nerve pain 10/06/20 [History Last Taken 09/05/22] insulin glargine 100 unit/mL subcutaneous solution (Lantus U-100 Insulin) 10 unit SQ QHS diabetes 12/30/20 [History Last Taken 09/04/22] latanoprost 0.005 % eye drops 1 drp EACH EYE QHS glaucoma 12/07/21 [History Last Taken 09/05/22] magnesium oxide 400 mg (241.3 mg magnesium) tablet 400 mg PO BID supplement 02/27/22 [History Last Taken 09/06/22] pantoprazole 40 mg tablet,delayed release 40 mg PO DAILY gerd 02/27/22 [History Last Taken 09/06/22] pravastatin 40 mg tablet 60 mg PO QHS cholesterol 02/27/22 [History Last Taken 09/05/22] tamsulosin 0.4 mg capsule 0.4 mg PO QHS prostate 02/27/22 [History Last Taken 09/05/22] metformin 500 mg tablet 500 mg PO BID diabetes #0 tabs 03/04/22 [Rx Last Taken 09/06/22] aspirin 81 mg tablet,delayed release 81 mg PO DAILY heart health 07/04/22 [History Last Taken 09/06/22] escitalopram oxalate 10 mg tablet 10 mg PO DAILY depression 07/04/22 [History Last Taken 09/06/22] fluticasone propionate 50 mcg/actuation nasal spray,suspension (Flonase Allergy Relief) 2 spray intranasal DAILY allergies 07/04/22 [History Last Taken 09/04/22] loratadine 10 mg capsule 10 mg PO DAILY allergies 07/04/22 [History Last Taken 09/06/22] losartan 25 mg tablet 25 mg PO DAILY blood pressure 07/04/22 [History Last Taken 09/06/22] omega-3 fatty acids-fish oil 684 mg-1,200 mg capsule,delayed release 2 cap PO DAILY supplement 07/04/22 [History Last Taken 09/06/22] amlodipine 10 mg tablet 10 mg PO DAILY blood pressure #90 tabs 07/27/22 [Rx Last Taken 09/06/22] levetiracetam 500 mg tablet 500 mg PO BID seizures #60 tabs 08/08/22 [Rx Last Taken 09/06/22] naproxen 500 mg tablet 500 mg PO BID PRN Pain 09/06/22 [History Last Taken Unknown] simethicone 80 mg chewable tablet (Gas Relief 80 (simethicone)) 80 mg PO DAILY PRN gas relief 09/06/22 [History Last Taken Unknown] folic acid 1 mg tablet 1 mg PO BREAKFAST #30 tabs 09/08/22 [Rx Last Taken Unknown] hpoxdk-sqwazpdn-nfygqvu 12,000-38,000-60,000 unit capsule,delayed rel (Creon) 1 cap PO .TIDAC 30 days #90 caps 09/08/22 [Rx Last Taken Unknown] thiamine HCl (vitamin B1) 100 mg tablet (Vitamin B-1) 100 mg PO BREAKFAST #30 tabs 09/08/22 [Rx Last Taken Unknown] ursodiol 250 mg tablet 250 mg PO BID liver fibrosis #180 tabs 09/21/22 [Rx Last Taken Unknown] levocarnitine 330 mg tablet 330 mg PO BID #60 tabs 09/28/22 [Rx Last Taken Unknown] Allergy/AdvReac Type Severity Reaction Status Date / Time lisinopril Allergy Angioedema Verified 11/09/22 16:17 cyclobenzaprine AdvReac Severe Skin Verified 11/09/22 16:17 crawling Iodinated Contrast Media AdvReac Intermediate ITCHY FEET Verified 11/09/22 16:17 [iodine contrast] hydrocodone bitartrate AdvReac Itching Verified 11/09/22 16:17 [From Vicodin] hydromorphone [From Dilaudid] AdvReac Itching Verified 11/09/22 16:17 morphine AdvReac Itching Verified 11/09/22 16:17 tramadol AdvReac Itching Verified 11/09/22 16:17 Family History Mother Heart disease Sister Cerebral aneurysm Surgical History History of cholecystectomy (12/2013) History of left heart catheterization (10/31/11) Social History Smoking Status: Former smoker Tobacco: How many years used: 7 Electronic Cigarette Use: not used alcohol intake: former details: states a couple beers every now on then, does not have daily substance use type: does not use caffeine: No robbin/tenriism: Tenriism seatbelt use: always ROS ROS ED Constitutional Constitutional ED: Denies chills, fever(s), subjective or sweats ENT ENT ED: Denies rhinorrhea or sore throat Cardiovascular Cardiovascular: Denies chest pain, palpitations or racing heartbeat Respiratory/Chest Respiratory/Chest: Denies cough or dyspnea Gastrointestinal Gastrointestinal: Reports abdominal pain and nausea; Denies constipation, diarrhea, melena or vomiting Genitourinary Genitourinary ED: Denies dysuria or hematuria Musculoskeletal Musculoskeletal: Denies back pain Integumentary Denies rash Neurologic Neurologic: Denies headache(s) Hematologic/Lymphatic Hematologic/Lymphatic: Denies easy bleeding or easy bruising Allergic/Immunologic Allergic/Immunologic ED: Denies urticaria EXAM Physical Exam Narrative Exam Narrative: Patient awake and alert. He walked back to the room without difficulty. He is sitting on the bed. He looks reasonably comfortable. He is not toxic. HEENT moist mucous membranes still no sign of trauma Eyes: No icterus Neck shows free range of motion without pain Lungs are clear bilaterally all the way to the bases. Heart is regular. It does have a rate of about 100. I hear no murmur. Peripheral pulses are equal x4. Back shows no tenderness. Abdomen is soft normal bowel sounds it is not distended. He has some minimal epigastric tenderness. I am really not getting any right upper quadrant tenderness even though he states the pain can goes a little bit that direction. No tenderness in the lower abdomen. No hernia when I have him set up. shows no CVA or suprapubic tenderness Neurologically he is awake alert and appropriate. Skin shows no diaphoresis or pallor. No rashes. Const Vital Signs: 11/28/22 21:43 11/28/22 21:44 Temperature 96.9 F L 96.9 F L Temperature Source Temporal Temporal Pulse Rate 108 H 108 H Respiratory Rate 18 18 Blood Pressure 134/91 H 134/91 H Blood Pressure Mean 105 105 MDM MDM MDM Narrative Medical decision making narrative: Patient's labs show slight elevation of his white count at 15.9. Platelets hemoglobin are normal. Electrolytes show no marked abnormalities. No sign of significant dehydration. He does have a slight rise of his glucose at 223. Liver function test overall look good. However, his lipase is quite high today. Alcohol level is negative. Patient's recheck. His nausea was better but is now coming back. His pain is coming back. This patient does have chronic recurrent pancreatitis. Normally were able to get him better and sent him home. But I think with his symptoms, and elevated lipase we may need to keep him in for hydration, n.p.o. and pain control. I did discuss the case with the hospitalist. Lab Data Labs: Laboratory Results - last 24 hr 11/28/22 11/28/22 11/29/22 23:55 23:55 01:15 WBC 15.9 H RBC 4.64 Hgb 14.9 Hct 42.1 MCV 90.7 MCH 32.1 H MCHC 35.4 RDW Std Deviation 39.1 RDW Coeff of Armin 11.8 Plt Count 225 MPV 9.4 Immature Gran % (Auto) 0.400 Neut % (Auto) 78.1 H Lymph % (Auto) 14.0 L [place] % (Auto) 6.5 Eos % (Auto) 0.6 Baso % (Auto) 0.4 Absolute Neuts (auto) 12.4 H Absolute Lymphs (auto) 2.22 Nucleated RBC % 0.1 Sodium 134 L Potassium 3.5 Chloride 100 Carbon Dioxide 26.0 Anion Gap 8 BUN 15 Creatinine 1.17 Estim Creat Clear Calc 71.93 Est GFR (MDRD) Af Amer 82 Est GFR (MDRD) Non-Af 68 BUN/Creatinine Ratio 12.8 Glucose 223 H Calcium 9.9 Total Bilirubin 0.80 AST 13 L ALT 20 Alkaline Phosphatase 71 Total Protein 8.3 H Albumin 4.3 Globulin 4.0 Albumin/Globulin Ratio 1.1 Lipase 2513 H Ethyl Alcohol < 3.0 Management Discussion w/another healthcare provider: Hospitalist Discharge Plan Dx/Rx/DC Orders Clinical Impression: Pancreatitis, Nausea, Abdominal pain Disposition Disposition: Acute Care Hospital [facility] What to do if you have Problems For any increased pain, shortness of breath, bleeding, nausea or vomiting, chestpain, or any unexpected problems, contact your Primary Care Provider. Call [facility] ([phone]) or report to the closest Emergency Room. Call 911 if necessary. 11/29/22 0306 <Electronically signed by Magno Mora MD> Cosigner Signature (if applicable): CC: Dr. Lobito Maldonado MD ~ Signed [facility] Work Phone: [phone] 140-704603-07-[address] Mora [facility] November 29, 2022 3:06am Note Date/Time November 28, 2022 11:3 1pm [facility] Medical Records Department [address] [place] [address] Emergency Department Summary 11/28/22 MR#: [id number] Acct: [id number] Name: BRONSON WELLER Rep #:[id number] : 1965 57 From: Magno Mora MD PCP: Dr. Lobito Maldonado MD Status:A DM IN Location: MS3 CF015-9 HPI HPI - GI History of Present Illness Chief Complaint: Abd Pain Informant: patient Narrative Narrative: Patient presents with abdominal pain. He has a history of recurrent pancreatitis. He states he is taking his medicines. He is not drinking. He istrying to eat healthy with fruits and vegetables. He did have a eggroll cooked in the oven yesterday. After that he seems to have more abdominal pain. It is epigastric and does radiate a little bit toward the right. He is already had his gallbladder out. No other abdominal surgery. He is not having pain in the back at this point but he feels like it might be going there. He is starting toget a little bit nauseated but no vomiting. He has still been eating well sincethis. No fevers or chills. No urinary symptoms. No chest pain no trouble breathing. [facility] Medical History (Updated 11/29/22 @ 03:[address] Magno Mora MD) Alcohol abuse Anxiety and depression Cancer Constipation Diabetes Essential (primary) hypertension Family history of cerebral aneurysm Former tobacco use Gastric ulcer GERD (gastroesophageal reflux disease) GI bleed Glaucoma Hyperlipidemia Myocardial infarct Neck pain Pancreatitis Polyneuropathy PSA elevation PTSD (post-traumatic stress disorder) Seizure disorder Stroke/cerebrovascular accident TIA (transient ischemic attack) Vision loss of left eye Vision loss of right eye Home Medications nitroglycerin 0.4 mg sublingual tablet 0.4 mg sublingual Q5M PRN Chest Pain 07/15/13 [History Last Taken 08/22/15] amitriptyline 25 mg tablet 25 mg PO QHS depression 07/03/18 [History Last Taken 09/05/22] cholecalciferol (vitamin D3) 125 mcg (5,000 unit) capsule 1 cap PO DAILY supplement 11/09/18 [History Last Taken 09/06/22] hydrochlorothiazide 25 mg tablet 25 mg PO DAILY blood pressure/heart #30 tabs 06/05/20 [Rx Last Taken 09/06/22] gabapentin 300 mg capsule 300 mg PO BID nerve pain 10/06/20 [History Last Taken 09/05/22] insulin glargine 100 unit/mL subcutaneous solution (Lantus U-100 Insulin) 10 unit SQ QHS diabetes 12/30/20 [History Last Taken 09/04/22] latanoprost 0.005 % eye drops 1 drp EACH EYE QHS glaucoma 12/07/21 [History Last Taken 09/05/22] magnesium oxide 400 mg (241.3 mg magnesium) tablet 400 mg PO BID supplement 02/27/22 [History Last Taken 09/06/22] pantoprazole 40 mg tablet,delayed release 40 mg PO DAILY gerd 02/27/22 [History Last Taken 09/06/22] pravastatin 40 mg tablet 60 mg PO QHS cholesterol 02/27/22 [History Last Taken 09/05/22] tamsulosin 0.4 mg capsule 0.4 mg PO QHS prostate 02/27/22 [History Last Taken 09/05/22] metformin 500 mg tablet 500 mg PO BID diabetes #0 tabs 03/04/22 [Rx Last Taken 09/06/22] aspirin 81 mg tablet,delayed release 81 mg PO DAILY heart health 07/04/22 [History Last Taken 09/06/22] escitalopram oxalate 10 mg tablet 10 mg PO DAILY depression 07/04/22 [History Last Taken 09/06/22] fluticasone propionate 50 mcg/actuation nasal spray,suspension (Flonase Allergy Relief) 2 spray intranasal DAILY allergies 07/04/22 [History Last Taken 09/04/22] loratadine 10 mg capsule 10 mg PO DAILY allergies 07/04/22 [History Last Taken 09/06/22] losartan 25 mg tablet 25 mg PO DAILY blood pressure 07/04/22 [History Last Taken 09/06/22] omega-3 fatty acids-fish oil 684 mg-1,200 mg capsule,delayed release 2 cap PO DAILY supplement 07/04/22 [History Last Taken 09/06/22] amlodipine 10 mg tablet 10 mg PO DAILY blood pressure #90 tabs 07/27/22 [Rx Last Taken 09/06/22] levetiracetam 500 mg tablet 500 mg PO BID seizures #60 tabs 08/08/22 [Rx Last Taken 09/06/22] naproxen 500 mg tablet 500 mg PO BID PRN Pain 09/06/22 [History Last Taken Unknown] simethicone 80 mg chewable tablet (Gas Relief 80 (simethicone)) 80 mg PO DAILY PRN gas relief 09/06/22 [History Last Taken Unknown] folic acid 1 mg tablet 1 mg PO BREAKFAST #30 tabs 09/08/22 [Rx Last Taken Unknown] nylvpw-ioqyotjg-njpebug 12,000-38,000-60,000 unit capsule,delayed rel (Creon) 1 cap PO .TIDAC 30 days #90 caps 09/08/22 [Rx Last Taken Unknown] thiamine HCl (vitamin B1) 100 mg tablet (Vitamin B-1) 100 mg PO BREAKFAST #30 tabs 09/08/22 [Rx Last Taken Unknown] ursodiol 250 mg tablet 250 mg PO BID liver fibrosis #180 tabs 09/21/22 [Rx Last Taken Unknown] levocarnitine 330 mg tablet 330 mg PO BID #60 tabs 09/28/22 [Rx Last Taken Unknown] Allergy/AdvReac Type Severity Reaction Status Date / Time lisinopril Allergy Angioedema Verified 11/09/22 16:17 cyclobenzaprine AdvReac Severe Skin Verified 11/09/22 16:17 crawling Iodinated Contrast Media AdvReac Intermediate ITCHY FEET Verified 11/09/22 16:17 [iodine contrast] hydrocodone bitartrate AdvReac Itching Verified 11/09/22 16:17 [From Vicodin] hydromorphone [From Dilaudid] AdvReac Itching Verified 11/09/22 16:17 morphine AdvReac Itching Verified 11/09/22 16:17 tramadol AdvReac Itching Verified 11/09/22 16:17 Family History Mother Heart disease Sister Cerebral aneurysm Surgical History History of cholecystectomy (12/2013) History of left heart catheterization (10/31/11) Social History Smoking Status: Former smoker Tobacco: How many years used: 7 Electronic Cigarette Use: not used alcohol intake: former details: states a couple beers every now on then, does not have daily substance use type: does not use caffeine: No robbin/tenriism: Tenriism seatbelt use: always ROS ROS ED Constitutional Constitutional ED: Denies chills, fever(s), subjective or sweats ENT ENT ED: Denies rhinorrhea or sore throat Cardiovascular Cardiovascular: Denies chest pain, palpitations or racing heartbeat Respiratory/Chest Respiratory/Chest: Denies cough or dyspnea Gastrointestinal Gastrointestinal: Reports abdominal pain and nausea; Denies constipation, diarrhea, melena or vomiting Genitourinary Genitourinary ED: Denies dysuria or hematuria Musculoskeletal Musculoskeletal: Denies back pain Integumentary Denies rash Neurologic Neurologic: Denies headache(s) Hematologic/Lymphatic Hematologic/Lymphatic: Denies easy bleeding or easy bruising Allergic/Immunologic Allergic/Immunologic ED: Denies urticaria EXAM Physical Exam Narrative Exam Narrative: Patient awake and alert. He walked back to the room without difficulty. He is sitting on the bed. He looks reasonably comfortable. He is not toxic. HEENT moist mucous membranes still no sign of trauma Eyes: No icterus Neck shows free range of motion without pain Lungs are clear bilaterally all the way to the bases. Heart is regular. It does have a rate of about 100. I hear no murmur. Peripheral pulses are equal x4. Back shows no tenderness. Abdomen is soft normal bowel sounds it is not distended. He has some minimal epigastric tenderness. I am really not getting any right upper quadrant tenderness even though he states the pain can goes a little bit that direction. No tenderness in the lower abdomen. No hernia when I have him set up. shows no CVA or suprapubic tenderness Neurologically he is awake alert and appropriate. Skin shows no diaphoresis or pallor. No rashes. Const Vital Signs: 11/28/22 21:43 11/28/22 21:44 Temperature 96.9 F L 96.9 F L Temperature Source Temporal Temporal Pulse Rate 108 H 108 H Respiratory Rate 18 18 Blood Pressure 134/91 H 134/91 H Blood Pressure Mean 105 105 MDM MDM MDM Narrative Medical decision making narrative: Patient's labs show slight elevation of his white count at 15.9. Platelets hemoglobin are normal. Electrolytes show no marked abnormalities. No sign of significant dehydration. He does have a slight rise of his glucose at 223. Liver function test overall look good. However, his lipase is quite high today. Alcohol level is negative. Patient's recheck. His nausea was better but is now coming back. His pain is coming back. This patient does have chronic recurrent pancreatitis. Normally were able to get him better and sent him home. But I think with his symptoms, and elevated lipase we may need to keep him in for hydration, n.p.o. and pain control. I did discuss the case with the hospitalist. Lab Data Labs: Laboratory Results - last 24 hr 11/28/22 11/28/22 11/29/22 23:55 23:55 01:15 WBC 15.9 H RBC 4.64 Hgb 14.9 Hct 42.1 MCV 90.7 MCH 32.1 H MCHC 35.4 RDW Std Deviation 39.1 RDW Coeff of Armin 11.8 Plt Count 225 MPV 9.4 Immature Gran % (Auto) 0.400 Neut % (Auto) 78.1 H Lymph % (Auto) 14.0 L [place] % (Auto) 6.5 Eos % (Auto) 0.6 Baso % (Auto) 0.4 Absolute Neuts (auto) 12.4 H Absolute Lymphs (auto) 2.22 Nucleated RBC % 0.1 Sodium 134 L Potassium 3.5 Chloride 100 Carbon Dioxide 26.0 Anion Gap 8 BUN 15 Creatinine 1.17 Estim Creat Clear Calc 71.93 Est GFR (MDRD) Af Amer 82 Est GFR (MDRD) Non-Af 68 BUN/Creatinine Ratio 12.8 Glucose 223 H Calcium 9.9 Total Bilirubin 0.80 AST 13 L ALT 20 Alkaline Phosphatase 71 Total Protein 8.3 H Albumin 4.3 Globulin 4.0 Albumin/Globulin Ratio 1.1 Lipase 2513 H Ethyl Alcohol < 3.0 Management Discussion w/another healthcare provider: Hospitalist Discharge Plan Dx/Rx/DC Orders Clinical Impression: Pancreatitis, Nausea, Abdominal pain Disposition Disposition: [facility] What to do if you have Problems For any increased pain, shortness of breath, bleeding, nausea or vomiting, chestpain, or any unexpected problems, contact your Primary Care Provider. Call [facility] ([phone]) or report to the closest Emergency Room. Call 911 if necessary. 11/29/22 0306 <Electronically signed by Magno Mora MD> Cosigner Signature (if applicable): CC: Dr. Lobito Maldonado MD ~ Signed [facility] Work Phone: [phone] 853-603902-20-2023 Miscellaneous Notes* Telephone Encounter - Mariella Lenz RN - 11/14/2022 1:36 PM EST Patient has been identified by name and [...] you. Mariella Lenz RN [facility] History of Present illness Narrative* Alis Dunne APRN.EVA - 11/07/2022 3:11 PM EST CC: Patient presents with: ED Follow-up HPI Bronson Weller is a 57 year old male who presents today hospital follow-up. [facility] for acute on [...] with Dr. Rosalio RIZVI and has routine follow- up this month. Denies any concerns or issues today other than medication refills. REVIEW OF SYSTEMS See HPI PAST MEDICAL HISTORY Diagnosis Date Acute myocardial infarction of other specified sites, episode of care unspecified 09/2011 Myocardial Infarction Alcohol abuse 05/14/2021 Alcohol induced acute pancreatitis 05/14/2021 Cervical radiculopathy 10/21/2014 Cervical spondylosis 10/21/2014 Chronic cholecystitis 01/07/2019 Coronary artery disease 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 09/25/2011 DDD (degenerative [...] and active. DATA REVIEWED: Outside chart from [facility] admission in Care Everywhere reviewed. ASSESSMENT/PLAN: [...] plan. Alis Dunne APRN.CNP documented [facility] Arteaga [facility] October 26, 2022 12:34am Note Date/Time October 25, 2022 1 0:04pm [facility] Medical Records Department [address] [place] [address] Emergency Department Summary 10/25/22 MR#: [id number] Acct: [id number] Name: BRONSON WELLER Rep #:[id number] : 1965 57 From: Yahir Arteaga DO PCP: Dr. Lobito Maldonado MD Status:R EG ER Location: ED HPI HPI - GI History of Present Illness Chief Complaint: Abd Pain Narrative Narrative: 57-year-old male with history of pancreatitis, GERD presenting with epigastric pain. He states it started about 11 AM this morning. He states it feels like pancreatitis. Patient states he has seen Dr. Santamaria he states that he is not drinking any alcohol. He is taking medication provided by Dr. Santamaria patient not had a fever. He denies constipation or diarrhea. [facility] Medical History Acute pancreatitis Alcohol abuse Anxiety and depression Cancer Cerebrovascular disease Chronic hip pain Chronic pain Constipation Diabetes Diabetes mellitus type 2 in nonobese Essential (primary) hypertension Family history of cerebral aneurysm Former tobacco use Gastric ulcer GERD (gastroesophageal reflux disease) GERD (gastroesophageal reflux disease) GI bleed Glaucoma Hyperlipidemia Neck pain Other generalized epilepsy and epileptic syndromes, not intractable, without status epilepticus Pancreatitis Polyneuropathy PSA elevation PTSD (post-traumatic stress disorder) Seizure disorder TIA (transient ischemic attack) Type 2 diabetes mellitus Vision loss of left eye Vision loss of right eye Home Medications nitroglycerin 0.4 mg sublingual tablet 0.4 mg sublingual Q5M PRN Chest Pain 07/15/13 [History Last Taken 08/22/15] amitriptyline 25 mg tablet 25 mg PO QHS depression 07/03/18 [History Last Taken 09/05/22] cholecalciferol (vitamin D3) 125 mcg (5,000 unit) capsule 1 cap PO DAILY supplement 11/09/18 [History Last Taken 09/06/22] hydrochlorothiazide 25 mg tablet 25 mg PO DAILY blood pressure/heart #30 tabs 06/05/20 [Rx Last Taken 09/06/22] gabapentin 300 mg capsule 300 mg PO BID nerve pain 10/06/20 [History Last Taken 09/05/22] insulin glargine 100 unit/mL subcutaneous solution (Lantus U-100 Insulin) 10 unit SQ QHS diabetes 12/30/20 [History Last Taken 09/04/22] latanoprost 0.005 % eye drops 1 drp EACH EYE QHS glaucoma 12/07/21 [History Last Taken 09/05/22] magnesium oxide 400 mg (241.3 mg magnesium) tablet 400 mg PO BID supplement 02/27/22 [History Last Taken 09/06/22] pantoprazole 40 mg tablet,delayed release 40 mg PO DAILY gerd 02/27/22 [History Last Taken 09/06/22] pravastatin 40 mg tablet 60 mg PO QHS cholesterol 02/27/22 [History Last Taken 09/05/22] tamsulosin 0.4 mg capsule 0.4 mg PO QHS prostate 02/27/22 [History Last Taken 09/05/22] metformin 500 mg tablet 500 mg PO BID diabetes #0 tabs 03/04/22 [Rx Last Taken 09/06/22] aspirin 81 mg tablet,delayed release 81 mg PO DAILY heart health 07/04/22 [History Last Taken 09/06/22] escitalopram oxalate 10 mg tablet 10 mg PO DAILY depression 07/04/22 [History Last Taken 09/06/22] fluticasone propionate 50 mcg/actuation nasal spray,suspension (Flonase Allergy Relief) 2 spray intranasal DAILY allergies 07/04/22 [History Last Taken 09/04/22] loratadine 10 mg capsule 10 mg PO DAILY allergies 07/04/22 [History Last Taken 09/06/22] losartan 25 mg tablet 25 mg PO DAILY blood pressure 07/04/22 [History Last Taken 09/06/22] omega-3 fatty acids-fish oil 684 mg-1,200 mg capsule,delayed release 2 cap PO DAILY supplement 07/04/22 [History Last Taken 09/06/22] amlodipine 10 mg tablet 10 mg PO DAILY blood pressure #90 tabs 07/27/22 [Rx Last Taken 09/06/22] levetiracetam 500 mg tablet 500 mg PO BID seizures #60 tabs 08/08/22 [Rx Last Taken 09/06/22] naproxen 500 mg tablet 500 mg PO BID PRN Pain 09/06/22 [History Last Taken Unknown] simethicone 80 mg chewable tablet (Gas Relief 80 (simethicone)) 80 mg PO DAILY PRN gas relief 09/06/22 [History Last Taken Unknown] folic acid 1 mg tablet 1 mg PO BREAKFAST #30 tabs 09/08/22 [Rx Last Taken Unknown] cxffva-wglycmea-rgvxsgb 12,000-38,000-60,000 unit capsule,delayed rel (Creon) 1 cap PO .TIDAC 30 days #90 caps 09/08/22 [Rx Last Taken Unknown] thiamine HCl (vitamin B1) 100 mg tablet (Vitamin B-1) 100 mg PO BREAKFAST #30 tabs 09/08/22 [Rx Last Taken Unknown] ursodiol 250 mg tablet 250 mg PO BID liver fibrosis #180 tabs 09/21/22 [Rx Last Taken Unknown] levocarnitine 330 mg tablet 330 mg PO BID #60 tabs 09/28/22 [Rx Last Taken Unknown] Allergy/AdvReac Type Severity Reaction Status Date / Time lisinopril Allergy Angioedema Verified 10/25/22 18:30 cyclobenzaprine AdvReac Severe Skin Verified 10/25/22 18:30 crawling hydrocodone bitartrate AdvReac Itching Verified 10/25/22 18:30 [From Vicodin] hydromorphone [From Dilaudid] AdvReac Itching Verified 10/25/22 18:30 morphine AdvReac Itching Verified 10/25/22 18:30 tramadol AdvReac Itching Verified 10/25/22 18:30 Family History Mother Heart disease Sister Cerebral aneurysm Surgical History History of cholecystectomy (12/2013) History of left heart catheterization (10/31/11) Social History Smoking Status: Former smoker Tobacco: How many years used: 7 Electronic Cigarette Use: not used alcohol intake: current alcohol intake frequency: holidays/special occasions only Alcohol type: beer details: states a couple beers every now on then, does not have daily substance use type: does not use caffeine: No robbin/tenriism: Tenriism seatbelt use: always ROS ROS ED Constitutional Constitutional ED: Denies chills or fever(s) ENT ENT ED: Denies rhinorrhea or sore throat Cardiovascular Cardiovascular: Denies chest pain or palpitations Respiratory/Chest Respiratory/Chest: Denies cough or dyspnea Gastrointestinal Gastrointestinal: Reports abdominal pain and nausea Genitourinary Genitourinary ED: Denies dysuria or hematuria Musculoskeletal Musculoskeletal: Denies arthralgias Integumentary Denies abscess or Abrasions Neurologic Neurologic: Denies headache(s) or paresthesias Psychiatric Psychiatric: Denies anxiety or depression Endocrine Endocrinology: Denies polydipsia or polyphagia EXAM Physical Exam Const Vital Signs: 10/25/22 18:30 10/25/22 23:48 Temperature 98 F Temperature Source Temporal Pulse Rate 109 H 94 Respiratory Rate 14 25 H Blood Pressure 126/102 H 94/69 Blood Pressure Mean 110 77 Pulse Ox 99 100 Oxygen Delivery Method Room Air Room Air Positive well nourished General Appearance ED: Negative for pallor HEENT Reports moist mucous membranes normocephalic and atraumatic Eyes PERRL and EOMs intact bilaterally Resp normal respiratory effort and clear to auscultation bilaterally Auscultation: Negative for rales, rhonchi or wheezes Cardio regular rate and regular rhythm GI Palpation: tender epigastric Back/Spine no CVA tenderness Neuro CN's II-XII intact bilaterally and moves all extremities Sensorium / Orientation: alert Psych mental status grossly normal and thought process normal Skin no wounds General Skin Exam: Negative for jaundice or pallor MDM MDM MDM Narrative Medical decision making narrative: Patient presented with epigastric pain. He is concerned he might have pancreatitis again. He states that he has not been drinking alcohol since his last admission. CBC to assess for elevated white blood cell count, hemoglobin levels, platelets, differential. White blood cell count slightly elevated todayat 15.6. Hemoglobin stable at 14.1. Platelets normal at 211. CMP assess renalfunction, liver function, electrolytes, glucose, anion gap. This shows normal renal function. Glucose is elevated at 177 without anion gap. Liver function appears normal however the patient's lipase is elevated at 930 today. He was medicated with Dilaudid 0.5 mg x 2 and had received Benadryl because he is allergic to this and he gets very itchy. Patient requested to be admitted for intractable pain. I spoke with the hospitalist and she did admit the patient stable condition. I do not believe he needs CT scan of his abdomen at this point. Impression: 1. Acute exacerbation of chronic pancreatitis 2. Abdominal pain Lab Data Attestation: I reviewed the patient's lab results. Labs: Laboratory Results - last 24 hr 10/25/22 10/25/22 10/25/22 20:40 20:40 20:40 WBC 15.6 H RBC 4.48 L Hgb 14.1 Hct 42.0 MCV 93.8 MCH 31.5 MCHC 33.6 RDW Std Deviation 43.3 RDW Coeff of Armin 12.6 Plt Count 211 MPV 9.7 Immature Gran % (Auto) 0.400 Neut % (Auto) 73.5 H Lymph % (Auto) 18.1 L [place] % (Auto) 6.5 Eos % (Auto) 1.1 Baso % (Auto) 0.4 Absolute Neuts (auto) 11.5 H Absolute Lymphs (auto) 2.83 Nucleated RBC % 0 Sodium 139 Potassium 3.7 Chloride 104 Carbon Dioxide 26.0 Anion Gap 9 BUN 22 H Creatinine 1.13 Estim Creat Clear Calc 74.47 Est GFR (MDRD) Af Amer 86 Est GFR (MDRD) Non-Af 71 BUN/Creatinine Ratio 19.5 Glucose 177 H Calcium 9.7 Total Bilirubin 0.60 Direct Bilirubin 0.22 AST 12 L ALT 20 Alkaline Phosphatase 68 Total Protein 8.3 H Albumin 4.4 Globulin 3.9 Lipase 930 H Urine Color Yellow Urine Clarity Clear Urine pH 6.0 Ur Specific [place] 1.020 Urine Protein 100 H Urine Glucose (UA) 50 H Urine Ketones Negative Urine Occult Blood Negative Urine Nitrite Negative Urine Bilirubin Negative Urine Urobilinogen 1 H Ur Leukocyte Esterase Negative Urine RBC 0-5 SEEN Urine WBC 0-5 SEEN Ur Squamous Epith Cells 0-5 SEEN Urine Bacteria 0 SEEN Urine Mucus 0 SEEN Discharge Plan Triage Chief Complaint: Abd Pain ED Provider: Yhair Arteaga Dx/Rx/DC Orders Prescriptions: No Action amitriptyline 25 mg tablet 25 mg PO QHS gabapentin 300 mg capsule 300 mg PO BID levetiracetam 500 mg tablet 500 mg PO BID Qty: 60 6RF levocarnitine 330 mg tablet 330 mg PO BID Qty: 60 5RF Rx Instructions: must administer with a meal/food nitroglycerin 0.4 MG tablet 0.4 mg sublingual Q5M PRN (Reason: Chest Pain) cholecalciferol (vitamin D3) 5,000 capsule 1 cap PO DAILY insulin glargine [Lantus U-100 Insulin] 100 UNIT/ML solution 10 unit SQ QHS latanoprost 0.005 % drops 1 drp EACH EYE QHS tamsulosin 0.4 mg Capsule 0.4 mg PO QHS pantoprazole 40 mg Tablet,Delayed Release (Dr/Ec) 40 mg PO DAILY pravastatin 40 mg Tablet 60 mg PO QHS magnesium oxide 400 mg (241.3 mg magnesium) tablet 400 mg PO BID metformin 500 MG tablet 500 mg PO BID Qty: 0 0RF Hold Instructions: Hold for 3 days aspirin 81 mg Tablet,Delayed Release (Dr/Ec) 81 mg PO DAILY losartan 25 mg tablet 25 mg PO DAILY fluticasone propionate [Flonase Allergy Relief] 50 mcg/actuation [place],Suspension 2 spray INTRANASAL DAILY escitalopram oxalate 10 mg tablet 10 mg PO DAILY loratadine 10 MG capsule 10 mg PO DAILY omega-3 fatty acids-fish oil 684-1,200 mg Capsule,Delayed Release(Dr/Ec) 2 cap PO DAILY naproxen 500 mg tablet 500 mg PO BID PRN (Reason: Pain) simethicone [Gas Relief 80 (simethicone)] 80 mg Tablet,Chewable 80 mg PO DAILY PRN (Reason: gas relief) thiamine HCl (vitamin B1) [Vitamin B-1] 100 mg Tablet 100 mg PO BREAKFAST Qty: 30 0RF folic acid 1 mg Tablet 1 mg PO BREAKFAST Qty: 30 0RF Creon 12,000-38,000 -60,000 unit capsule,delayed release(DR/EC) 1 cap PO .TIDAC 30 Days Qty: 90 2RF Rx Instructions: administer with meals and/or snacks hydrochlorothiazide 25 mg tablet 25 mg PO DAILY Qty: 30 11RF Hold Instructions: Hold for 3 days and start with 12.5 mg, half tablet daily. amlodipine 10 mg tablet 10 mg PO DAILY Qty: 90 3RF ursodiol 250 mg tablet 250 mg PO BID Qty: 180 1RF Primary Care Provider: Lobito Maldonado Referrals: Lobito Maldonado MD [Primary Care Provider] - What to do if you have Problems For any increased pain, shortness of breath, bleeding, nausea or vomiting, chestpain, or any unexpected problems, contact your Primary Care Provider. Call [facility] ([phone]) or report to the closest Emergency Room. Call 911 if necessary. 10/26/22 0034 <Electronically signed by Yahir Arteaga DO> Cosigner Signature (if applicable): CC: Dr. Lobito Maldonado MD ~ Signed [facility] Work Phone: 1(437) 433-394801-31-2023 Miscellaneous Notes* Telephone Encounter - Souleymane Elliott APRN.ANMOL VELASQUEZ - 10/25/2022 9:03 AM EST Noted. Souleymane Elliott APRN.ANMOL VELASQUEZ * Telephone Encounter - Aury Cox Pss - 03/01/2022 10:30 AM EDT [facility] stating patient was [facility] to [facility] on 02/27 for Pancreatitis. documented in this encounterBrown Memorial Hospital01-23-2023 Miscellaneous Notes* Telephone Encounter - Sarah Beth Macario Pss - 10/17/2022 2:04 PM EST Patient has been identified by name and date of : Yes Requested Prescriptions Pending Prescriptions Disp Refills gabapentin (NEURONTIN) 300 mg capsule 180 capsule 3 Sig: Take 1 capsule by mouth twice daily for 90 days. LEV-08/19/22 Labs-05/19/22 NOV-none med filled 07/06/22 RX INSTRUCTIONS: Pharmacy initiated this request. No need to notify patient. Sarah Beth Macario Pss documented in this encounterBrown Memorial Hospital12-27-2022 Miscellaneous Notes* Telephone Encounter - Tonio Jackson RN - 09/20/2022 11:11 AM EST Patient has been identified by name and [...] you. Tonio Jackson RN documented in this encounterBrown Memorial Hospital11-25-2022 History of Present illness Narrative* Felipe Rosen RT(R) - 08/19/2022 4:50 PM EST Radiology Service Progress Note PATIENT NAME: Bronson Weller DATE OF SERVICE: August 19, 2022 TIME: 4:58 PM PATIENT IDENTITY VERIFICATION COMPLETED USING TWO (2) IDENTIFIERS: Name and Date of confirmedby patient verbally. FALL SCREENING: Has the patient [...] RT Eli(R) August 19, 2022 4:58 PM documented in this encounterBrown Memorial Hospital11-25-2022 History of Present illness Narrative* Lobito Maldonado MD - 08/19/2022 4:26 PM EST This note was created using [email or web address]. Subjective Bronson Weller is a 57 year [...] of Both Eyes Coronary Artery Disease Involving Kashia Coronary Artery of Kashia Heart Without Angina Pectoris Posttraumatic Stress Disorder [...] 185, ICD10: C61 To see urology. Lobito Maldonado MD documented in this encounterBrown Memorial Hospital10-05-2022 Miscellaneous Notes* Telephone Encounter - Caroline Macias Pss - 06/29/2022 8:21 AM EDT Patient has been identified by name and [...] patient. Caroline Macias Pss documented in this encounterBrown Memorial Hospital09-08-2022 Miscellaneous Notes* Telephone Encounter - Cari Moss RN - 06/02/2022 1:49 PM EDT Patient has been identified by name and [...] you. Cari Moss RN documented in this encounterBrown Memorial Hospital09-06-2022 Miscellaneous Notes* Telephone Encounter - Gerard Polo Ma - 05/31/2022 4:26 PM EDT Patient notified, verbalized understanding. * Telephone Encounter - Gerard Polo Ma - 05/31/2022 4:25 PM EDT ----- Message from Lobito Maldonado MD sent at 05/28/2022 2:31 PM EDT ----- Diabetes needs improvement. Fasting glucose elevated. Recommend increasing Lantus to 14 units at bedtime. Rest of labs okay. documented in this encounterBrown Memorial Hospital08-29-2022 Miscellaneous Notes* Telephone Encounter - Eugene Hinds Cma - 05/23/2022 10:27 AM EDT Patient advised PSA is down. Patient agreed. Eugene Hinds Cma * Telephone Encounter - Eugene Hinds Cma - 05/23/2022 10:26 AM EDT ----- Message from Trini Williamson DO sent at 05/22/2022 5:39 PM EDT ----- PSA is down documented in this encounterBrown Memorial Hospital08-22-2022 Instructions* Patient Instructions* Lobito Maldonado MD - 05/16/2022 4:29 PM EDT FASTING BLOOD WORK. documented in this encounterBrown Memorial Hospital08-22-2022 History of Present illness Narrative* Lobito Maldonado MD - 05/16/2022 4:15 PM EDT This note was created using [email or web address]. Carmen Weller is a 57 year old male. He had no new concerns. He needed refills. He had not done his fasting labs here. He was [facility]. He sees Dr. Williamson for urology, Dr. Burnett, [place] neurology; Abimael Sanchez CNP for cardiology, [facility]; Dr. Leroy Santamaria for [place] gastroenterology; Dr. Bojorquez for ophthalmology. Review of [...] Hypertension Type 2 Diabetes Mellitus Without Retinopathy ([facility]) Optic Cupping of Both Eyes Coronary Artery Disease Involving Kashia Coronary Artery of Kashia Heart Without Angina Pectoris Posttraumatic Stress Disorder [...] every 24 hours. (Patient not taking: Reported on05/16/2022) No current facility-administered medications for this visit. [...] (primary diagnosis) The [place]. - Continue current medications - METFORMIN 500 [...] type (HCC) - ICD9: 345.90, ICD10: G40.909 Per [place] neurology. 5. Hypertension, essential - ICD9: 401.9, [...] MG CAPSULE 10. 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 - ICD9: 414.01, ICD10: I25.10 Stable. - ASPIRIN 81 MG TABLET,DELAYED RELEASE 11. Posttraumatic stress disorder - ICD9: 309.81, ICD10: F43.10 Refilled. - AMITRIPTYLINE 25 MG TABLET Lobito Maldonado MD documented in this encounterBrown Memorial Hospital08-11-2022 Miscellaneous Notes* Telephone Encounter - hRona Petersen Danita BEARDEN - 05/05/2022 3:38 PM EDT Patient has been identified by name and [...] Not applicable Please advise. Thank you. Rhona Dovemonika BEARDEN * Telephone Encounter - Toya Dickerson Pss - 05/05/2022 2:50 PM EDT Pharmacy verified in [facility] Patient has been identified by name [...] advise. Toya Dickerson Pss documented in this encounterBrown Memorial Hospital07-15-2022 Miscellaneous Notes* Telephone Encounter - Sveta Turcios Pss - 04/08/2022 8:45 AM EDT Patient has been identified by name and [...] patient. Sveta Turcios Pss documented in this encounterBrown Memorial Hospital06-17-2022 Miscellaneous Notes* Telephone Encounter - Isidoro ZuritaDINESH aceves - 03/11/2022 1:38 PM EDT BEHAVIORAL HEALTH SOCIAL WORK CONSULT NOTE Service Date: March 11, 2022 Patient was identified by name and Patient: Bronson Rothman [facility] [id number] (home) [phone] (cell) PCP: Lobito Maldonado MD [address] [facility] [address] Patient identified for [facility] from: PCP (Dr Maldonado) Reason for referral: [facility] Assessment (not sure of diag,Posttraumatic stress disorder) [facility] encounter type: Telephone Encounter Assessment: SW received a consult from Dr Maldonado, for assessment not sure of diag PTSD [facility] reviewed Pt's chart/insurance SW contacted Pt -stated he is ok -denies current SI/HI -reported he was drinking, had a gun and called the police -was transferred to [place] and admitted to [facility] -not sure where he was referred to for outpt tx -stated he received a ltr from them stating they were full SW suggested [facility] -Pt stated he is ok -I will contact you if I need anything -the police took my gun so it is not in the house -inquired if Pt was still drinking -it is unclear -talked of staff at [facility] wanting to kick him out however does not know the reason why -they stated he does not qualify -states he would ok if others ([facility]) would leave him alone -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 [facility] offered to send ltr with contact info in case Pt reconsiders -Pt agreed -[facility] - sent the following resources in a ltr: [facility] [address], [place] [phone] *counseling, psychiatry and case management [facility] [address] [place] [address] Crisis line [phone] Pt stated he will call if he [...] 15 minutes DINESH Jamil documented in this encounterBrown Memorial Hospital06-16-2022 History of Present illness Narrative* Lobito Maldonado MD - 03/10/2022 9:49 AM EDT This note was created using NoteWriter. Subjective Patient presents with: Hospital F/U: pancreatitis Establish Care: from Family Practice Bronson Weller is a 56 year old male. He was admitted for acute pancreatitis 02/27-03/04. He had to goback to the ER for pain medication 03/06. His abdominal pain was much better, and things were getting back to normal. He stopped alcohol consumption. He was admitted for suicidal ideation in [place] in November, and diagnosed with PTSD. He was having flashbacks of seeing a lot of from when he worked for the [employer]. He was started onamitriptyline and escitalopram. He was supposed to go for mental health care, but was told practices were full. He sees Dr. Williamson for urology, Dr. Burnett for neurology, Abimael Sanchez CNP for cardiology, Dr. Gaffney for gastroenterology, Dr. Bojorquez for ophthalmology. Review [...] Coronary artery disease 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 09/25/2011 DDD (degenerative [...] HEALTH ADULT 2. 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- ICD9: 414.01, ICD10: I25.10 Stable per [facility]. - CBC 3. Mixed hyperlipidemia - ICD9: 272.2, ICD10: E78.2 - to be determined upon return of lab results - Continue current medication. 4. Type 2 diabetes mellitus without complication, with long-term current use of insulin (HCC) - ICD9: 250.00, V58.67, ICD10: E11.9, Z79.4 The [place]. - Continue current medications - COMP METABOLIC PANEL - LIPID PANEL BASIC - HGB A1C - ALBUMIN/CREAT RATIO RND UR Lobito Maldonado MD documented in this encounterBrown Memorial Hospital06-15-2022 Miscellaneous Notes* Telephone Encounter - Eugene Hinds Cma - 03/09/2022 1:21 PM EDT Pharmacy called requesting the following refill. Pending Prescriptions Disp Refills TAMSULOSIN 0.4 MG CAPSULE 30 capsule 3 Sig: Take 1 capsule by mouth once daily. 30 minutes after the same meal each day. DANIELLE: No Patient last appointment: Visit date not found Patient Phone numbers: [phone] (home) Request is for script(s) to be escript to pharmacy. Eugene Hinds Cma documented in this encounterBrown Memorial Hospital06-15-2022 Miscellaneous Notes* Telephone Encounter - Eden Macario PATIENT CARE TECHNICIAN - 03/09/2022 10:08 AM EDT Patient has been identified by name and [...] you. Eden Macario LPN documented in this encounterBrown Memorial Hospital04-21-2022 Miscellaneous Notes* Telephone Encounter - Souleymane Elliott APRN.CNP, DNP - 01/13/2022 12:30 PM EDT The following approved medication requests have been transmitted electronically. Pending Prescriptions Disp Refills MAGNESIUM OXIDE 400 MG (241.3 MG MAGNESIUM) TABLET 56 tablet 0 Sig: TAKE 1 TABLET BY MOUTH TWICE A DAY DANIELLE: Yes GABAPENTIN 300 MG CAPSULE 180 capsule 0 Sig: Take 1 capsule by mouth twice daily for 90 days. DANIELLE: No Souleymane Elliott APRN.ANMOL VELASQUEZ * Telephone Encounter - Kay Renae LPN - 01/13/2022 9:45 AM EDT Patient phones requesting refills as follows: Pending Prescriptions Disp Refills MAGNESIUM OXIDE 400 MG (241.3 MG MAGNESIUM) TABLET 56 tablet 0 Sig: TAKE 1 TABLET BY MOUTH TWICE A DAY DANIELLE: Yes GABAPENTIN 300 MG CAPSULE 56 capsule Sig: TAKE 1 CAPSULE BY MOUTH TWICE A DAY DANIELLE: Yes LEV-05/21/21 Labs-05/27/21 NOV-none Please review and advise. Kay Renae LPN documented in this encounterBrown Memorial Hospital03-25-2022 Miscellaneous Notes* Addendum Note - Souleymane Elliott APRN.CNP, DNP - 12/17/2021 9:10 AM EDT Addended by: SOULEYMANE ELLIOTT on: 12/17/2021 09:10 AM Modules accepted: Orders * Telephone Encounter - Souleymane Elliott APRN.CNP, DNP - 12/17/2021 9:08 AM EDT Inform patient we will recheck his magnesium [...] MOUTH TWICE A DAY DANIELLE: Yes Souleymane Elliott APRN.ANMOL VELASQUEZ * Telephone Encounter - Kay Renae LPN - 12/17/2021 7:30 AM EDT Patient phones requesting refills as follows: Pending Prescriptions Disp Refills MAGNESIUM OXIDE 400 MG (241.3 MG MAGNESIUM) TABLET 56 tablet 0 Sig: TAKE 1 TABLET BY MOUTH TWICE A DAY DANIELLE: Yes LEV-05/21/21 Labs-05/21/21 NOV-none Please review and advise. Kay Renae LPN documented in this encounterBrown Memorial Hospital01-11-2022 History of Past illness Narrative* Problem Noted Date Resolved Date Type 2 diabetes mellitus without retinopathy 07/202208/16/2022 Elevated PSA 12/01/2020 05/16/2022 NO SHOW 06/05/2015 03/10/2022 Right hip pain 01/19/2015 05/16/2022 DDD (degenerative disc disease), thoracic 201405/16/2022 Cervical strain 10/21/2014 03/10/2022 DDD (degenerative disc disease), cervical 201403/10/2022 documented as of this encounter (statuses as of 08/21/2022) [facility] History of Past illness Narrative* Problem Noted Date Resolved Date Type 2 diabetes mellitus without retinopathy 07/202208/16/2022 Elevated PSA 12/01/2020 05/16/2022 NO SHOW 06/05/2015 03/10/2022 Right hip pain 01/19/2015 05/16/2022 DDD (degenerative disc disease), thoracic 201405/16/2022 Cervical strain 10/21/2014 03/10/2022 DDD (degenerative disc disease), cervical 201403/10/2022 documented as of this encounter (statuses as of 09/25/2022) [facility] of Past illness Narrative* Problem Noted Date Resolved Date Type 2 diabetes mellitus without retinopathy 07/202208/16/2022 Elevated PSA 12/01/2020 05/16/2022 NO SHOW 06/05/2015 03/10/2022 Right hip pain 01/19/2015 05/16/2022 DDD (degenerative disc disease), thoracic 201405/16/2022 Cervical strain 10/21/2014 03/10/2022 DDD (degenerative disc disease), cervical 201403/10/2022 documented as of this encounter (statuses as of 10/19/2022) [facility] of Past illness Narrative* Problem Noted Date Resolved Date Type 2 diabetes mellitus without retinopathy 07/202208/16/2022 Elevated PSA 12/01/2020 05/16/2022 NO SHOW 06/05/2015 03/10/2022 Right hip pain 01/19/2015 05/16/2022 DDD (degenerative disc disease), thoracic 201405/16/2022 Cervical strain 10/21/2014 03/10/2022 DDD (degenerative disc disease), cervical 201403/10/2022 documented as of this encounter (statuses as of 10/25/2022) [facility] of Past illness Narrative* Problem Noted Date Resolved Date Type 2 diabetes mellitus without retinopathy 07/202208/16/2022 Elevated PSA 12/01/2020 05/16/2022 NO SHOW 06/05/2015 03/10/2022 Right hip pain 01/19/2015 05/16/2022 DDD (degenerative disc disease), thoracic 201405/16/2022 Cervical strain 10/21/2014 03/10/2022 DDD (degenerative disc disease), cervical 201403/10/2022 documented as of this encounter (statuses as of 11/08/2022) [facility] of Past illness Narrative* Problem Noted Date Resolved Date Type 2 diabetes mellitus without retinopathy 07/202208/16/2022 Elevated PSA 12/01/2020 05/16/2022 NO SHOW 06/05/2015 03/10/2022 Right hip pain 01/19/2015 05/16/2022 DDD (degenerative disc disease), thoracic 201405/16/2022 Cervical strain 10/21/2014 03/10/2022 DDD (degenerative disc disease), cervical 201403/10/2022 documented as of this encounter (statuses as of 11/14/2022) [facility] of Past illness Narrative* Problem Noted Date Resolved Date Type 2 diabetes mellitus without retinopathy 07/202208/16/2022 Elevated PSA 12/01/2020 05/16/2022 NO SHOW 06/05/2015 03/10/2022 Right hip pain 01/19/2015 05/16/2022 DDD (degenerative disc disease), thoracic 201405/16/2022 Cervical strain 10/21/2014 03/10/2022 DDD (degenerative disc disease), cervical 201403/10/2022 documented as of this encounter (statuses as of 12/01/2022) [facility] of Past illness Narrative* Problem Noted Date Resolved Date Type 2 diabetes mellitus without retinopathy 07/202208/16/2022 Elevated PSA 12/01/2020 05/16/2022 NO SHOW 06/05/2015 03/10/2022 Right hip pain 01/19/2015 05/16/2022 DDD (degenerative disc disease), thoracic 201405/16/2022 Cervical strain 10/21/2014 03/10/2022 DDD (degenerative disc disease), cervical 201403/10/2022 documented as of this encounter (statuses as of 12/08/2022) [facility] of Past illness Narrative* Problem Noted Date Resolved Date Type 2 diabetes mellitus without retinopathy 07/202208/16/2022 Elevated PSA 12/01/2020 05/16/2022 NO SHOW 06/05/2015 03/10/2022 Right hip pain 01/19/2015 05/16/2022 DDD (degenerative disc disease), thoracic 201405/16/2022 Cervical strain 10/21/2014 03/10/2022 DDD (degenerative disc disease), cervical 201403/10/2022 documented as of this encounter (statuses as of 12/09/2022) [facility] Narrative* Problem Noted Date Resolved Date Type 2 diabetes mellitus without retinopathy 07/202208/16/2022 Elevated PSA 12/01/2020 05/16/2022 NO SHOW 06/05/2015 03/10/2022 Right hip pain 01/19/2015 05/16/2022 DDD (degenerative disc disease), thoracic 201405/16/2022 Cervical strain 10/21/2014 03/10/2022 DDD (degenerative disc disease), cervical 201403/10/2022 documented as of this encounter (statuses as of 12/13/2022) [facility] Narrative* Problem Noted Date Resolved Date Type 2 diabetes mellitus without retinopathy 07/202208/16/2022 Elevated PSA 12/01/2020 05/16/2022 NO SHOW 06/05/2015 03/10/2022 Right hip pain 01/19/2015 05/16/2022 DDD (degenerative disc disease), thoracic 201405/16/2022 Cervical strain 10/21/2014 03/10/2022 DDD (degenerative disc disease), cervical 201403/10/2022 documented as of this encounter (statuses as of 12/15/2022) [facility] Narrative* Problem Noted Date Resolved Date Type 2 diabetes mellitus without retinopathy 07/202208/16/2022 Elevated PSA 12/01/2020 05/16/2022 NO SHOW 06/05/2015 03/10/2022 Right hip pain 01/19/2015 05/16/2022 DDD (degenerative disc disease), thoracic 201405/16/2022 Cervical strain 10/21/2014 03/10/2022 DDD (degenerative disc disease), cervical 201403/10/2022 documented as of this encounter (statuses as of 12/16/2022) [facility] Narrative* Problem Noted Date Resolved Date Type 2 diabetes mellitus without retinopathy 07/202208/16/2022 Elevated PSA 12/01/2020 05/16/2022 NO SHOW 06/05/2015 03/10/2022 Right hip pain 01/19/2015 05/16/2022 DDD (degenerative disc disease), thoracic 201405/16/2022 Cervical strain 10/21/2014 03/10/2022 DDD (degenerative disc disease), cervical 201403/10/2022 documented as of this encounter (statuses as of 12/20/2022) [facility]01[facility]2022 History of Past illness Narrative* Problem Noted Date Resolved Date Type 2 diabetes mellitus without retinopathy 07/202208/16/2022 Elevated PSA 12/01/2020 05/16/2022 NO SHOW 06/05/2015 03/10/2022 Right hip pain 01/19/2015 05/16/2022 DDD (degenerative disc disease), thoracic 201405/16/2022 Cervical strain 10/21/2014 03/10/2022 DDD (degenerative disc disease), cervical 201403/10/2022 documented as of this encounter (statuses as of 12/29/2022) [facility] History of Past illness Narrative* Problem Noted Date Resolved Date Type 2 diabetes mellitus without retinopathy 07/202208/16/2022 Elevated PSA 12/01/2020 05/16/2022 NO SHOW 06/05/2015 03/10/2022 Right hip pain 01/19/2015 05/16/2022 DDD (degenerative disc disease), thoracic 201405/16/2022 Cervical strain 10/21/2014 03/10/2022 DDD (degenerative disc disease), cervical 201403/10/2022 documented as of this encounter (statuses as of 01/17/2023) [facility] History of Past illness Narrative* Problem Noted Date Resolved Date Type 2 diabetes mellitus without retinopathy 07/202208/16/2022 Elevated PSA 12/01/2020 05/16/2022 NO SHOW 06/05/2015 03/10/2022 Right hip pain 01/19/2015 05/16/2022 DDD (degenerative disc disease), thoracic 201405/16/2022 Cervical strain 10/21/2014 03/10/2022 DDD (degenerative disc disease), cervical 201403/10/2022 documented as of this encounter (statuses as of 01/25/2023) [facility] History of Past illness Narrative* Problem Noted Date Resolved Date Type 2 diabetes mellitus without retinopathy 07/202208/16/2022 Elevated PSA 12/01/2020 05/16/2022 NO SHOW 06/05/2015 03/10/2022 Right hip pain 01/19/2015 05/16/2022 DDD (degenerative disc disease), thoracic 201405/16/2022 Cervical strain 10/21/2014 03/10/2022 DDD (degenerative disc disease), cervical 201403/10/2022 documented as of this encounter (statuses as of 02/06/2023) [facility] History of Past illness Narrative* Problem Noted Date Resolved Date Type 2 diabetes mellitus without retinopathy 07/202208/16/2022 Elevated PSA 12/01/2020 05/16/2022 NO SHOW 06/05/2015 03/10/2022 Right hip pain 01/19/2015 05/16/2022 DDD (degenerative disc disease), thoracic 201405/16/2022 Cervical strain 10/21/2014 03/10/2022 DDD (degenerative disc disease), cervical 201403/10/2022 documented as of this encounter (statuses as of 02/21/2023) [facility] History of Past illness Narrative* Problem Noted Date Diagnosed Date Resolved Date Type 2 diabetes mellitus without retinopathy 08/16/2022 Elevated PSA 12/01/2020 05/16/2022 NO SHOW 06/05/2015 03/10/2022 Right hip pain 01/19/2015 05/16/2022 DDD (degenerative disc disease), thoracic 10/21/2014 05/16/2022 Cervical strain 10/21/2014 03/10/2022 DDD (degenerative disc disease), cervical 10/21/2014 03/10/2022 documented as of this encounter (statuses as of 05/02/2023) [facility] History of Past illness Narrative* Problem Noted Date Diagnosed Date Resolved Date Type 2 diabetes mellitus without retinopathy 2 08/16/2022 Elevated PSA 12/01/2020 05/16/2022 NO SHOW 06/05/2015 03/10/2022 Right hip pain 01/19/2015 05/16/2022 DDD (degenerative disc disease), thoracic 10/21/2014 05/16/2022 Cervical strain 10/21/2014 03/10/2022 DDD (degenerative disc disease), cervical 10/21/2014 03/10/2022 documented as of this encounter (statuses as of 05/19/2023) [facility] History of Past illness Narrative* Problem Noted Date Diagnosed Date Resolved Date Type 2 diabetes mellitus without retinopathy 2 08/16/2022 Elevated PSA 12/01/2020 05/16/2022 NO SHOW 06/05/2015 03/10/2022 Right hip pain 01/19/2015 05/16/2022 DDD (degenerative disc disease), thoracic 10/21/2014 05/16/2022 Cervical strain 10/21/2014 03/10/2022 DDD (degenerative disc disease), cervical 10/21/2014 03/10/2022 documented as of this encounter (statuses as of 06/12/2023) [facility] History of Past illness Narrative* Problem Noted Date Diagnosed Date Resolved Date Type 2 diabetes mellitus without retinopathy 2 08/16/2022 Elevated PSA 12/01/2020 05/16/2022 NO SHOW 06/05/2015 03/10/2022 Right hip pain 01/19/2015 05/16/2022 DDD (degenerative disc disease), thoracic 10/21/2014 05/16/2022 Cervical strain 10/21/2014 03/10/2022 DDD (degenerative disc disease), cervical 10/21/2014 03/10/2022 documented as of this encounter (statuses as of 06/16/2023) [facility] History of Past illness Narrative* Problem Noted Date Diagnosed Date Resolved Date Type 2 diabetes mellitus without retinopathy 2 08/16/2022 Elevated PSA 12/01/2020 05/16/2022 NO SHOW 06/05/2015 03/10/2022 Right hip pain 01/19/2015 05/16/2022 DDD (degenerative disc disease), thoracic 10/21/2014 05/16/2022 Cervical strain 10/21/2014 03/10/2022 DDD (degenerative disc disease), cervical 10/21/2014 03/10/2022 documented as of this encounter (statuses as of 08/22/2023) [facility] History of Past illness Narrative* Problem Noted Date Diagnosed Date Resolved Date Type 2 diabetes mellitus without retinopathy 2 08/16/2022 Elevated PSA 12/01/2020 05/16/2022 NO SHOW 06/05/2015 03/10/2022 Right hip pain 01/19/2015 05/16/2022 DDD (degenerative disc disease), thoracic 10/21/2014 05/16/2022 Cervical strain 10/21/2014 03/10/2022 DDD (degenerative disc disease), cervical 10/21/2014 03/10/2022 documented as of this encounter (statuses as of 08/30/2023) [facility] History of Past illness Narrative* Problem Noted Date Diagnosed Date Resolved Date Type 2 diabetes mellitus without retinopathy 2 08/16/2022 Elevated PSA 12/01/2020 05/16/2022 NO SHOW 06/05/2015 03/10/2022 Right hip pain 01/19/2015 05/16/2022 DDD (degenerative disc disease), thoracic 10/21/2014 05/16/2022 Cervical strain 10/21/2014 03/10/2022 DDD (degenerative disc disease), cervical 10/21/2014 03/10/2022 documented as of this encounter (statuses as of 11/16/2023) [facility] History of Past illness Narrative* Problem Noted Date Diagnosed Date Resolved Date Type 2 diabetes mellitus without retinopathy 2 08/16/2022 Elevated PSA 12/01/2020 05/16/2022 NO SHOW 06/05/2015 03/10/2022 Right hip pain 01/19/2015 05/16/2022 DDD (degenerative disc disease), thoracic 10/21/2014 05/16/2022 Cervical strain 10/21/2014 03/10/2022 DDD (degenerative disc disease), cervical 10/21/2014 03/10/2022 documented as of this encounter (statuses as of 11/27/2023) [facility] History of Past illness Narrative* Problem Noted Date Diagnosed Date Resolved Date Type 2 diabetes mellitus without retinopathy 2 08/16/2022 Elevated PSA 12/01/2020 05/16/2022 NO SHOW 06/05/2015 03/10/2022 Right hip pain 01/19/2015 05/16/2022 DDD (degenerative disc disease), thoracic 10/21/2014 05/16/2022 Cervical strain 10/21/2014 03/10/2022 DDD (degenerative disc disease), cervical 10/21/2014 03/10/2022 documented as of this encounter (statuses as of 01/10/2024) [facility]10-12-2021 NoteHNO ID: [id number] Author: Trini Williamson, DO Service: ? Author Type: Physician Type: Progress Notes Filed: 07/06/2021 4:05 PM Note Text: ?? [facility] [place] [facility] LOCATION: [address] [place] [address] ESTABLISHED PATIENT PATIENT INFO: Bronson Weller 56 [...] right lateral mid, biopsy ? Prostatic adenocarcinoma, [place] score 3+3 = 6 (grade group 1), [...] 61.2 Lymph% (%) Date Value 05/21/2021 28.6 [place]% (%) Date Value 05/21/2021 8.0 Eosin% (%) Date Value 05/21/2021 1.7 Baso% (%) Date Value 05/21/2021 0.5 Abs Neut (ANC) (k/uL) Date Value 05/21/2021 6.76 Abs [place] (k/uL) Date Value 05/21/2021 0.89 (H) Abs [...] days. naproxe (more content not included)...[facility]10-08-2021 NoteHNO ID: [id number] Author: RT Noé(Ariadna) Service: Radiology Author Type: Big Data Lead Type: Progress Notes Filed: 07/02/2021 9:30 AM [...] Weller DATE: July 02, 2021 TIME: 9:29 AM[facility] History of Past illness Narrative* Problem Noted Date Resolved Date Elevated PSA 12/01/2020 05/16/2022 NO SHOW 06/05/2015 03/10/2022 Right hip pain 01/19/2015 05/16/2022 DDD (degenerative disc disease), thoracic 201405/16/2022 Cervical strain 10/21/2014 03/10/2022 DDD (degenerative disc disease), cervical 201403/10/2022 documented as of this encounter (statuses as of 05/16/2022) [facility] History of Past illness Narrative* Problem Noted Date Resolved Date Elevated PSA 12/01/2020 05/16/2022 NO SHOW 06/05/2015 03/10/2022 Right hip pain 01/19/2015 05/16/2022 DDD (degenerative disc disease), thoracic 201405/16/2022 Cervical strain 10/21/2014 03/10/2022 DDD (degenerative disc disease), cervical 201403/10/2022 documented as of this encounter (statuses as of 05/23/2022) [facility] History of Past illness Narrative* Problem Noted Date Resolved Date Elevated PSA 12/01/2020 05/16/2022 NO SHOW 06/05/2015 03/10/2022 Right hip pain 01/19/2015 05/16/2022 DDD (degenerative disc disease), thoracic 201405/16/2022 Cervical strain 10/21/2014 03/10/2022 DDD (degenerative disc disease), cervical 201403/10/2022 documented as of this encounter (statuses as of 05/31/2022) [facility] History of Past illness Narrative* Problem Noted Date Resolved Date Elevated PSA 12/01/2020 05/16/2022 NO SHOW 06/05/2015 03/10/2022 Right hip pain 01/19/2015 05/16/2022 DDD (degenerative disc disease), thoracic 201405/16/2022 Cervical strain 10/21/2014 03/10/2022 DDD (degenerative disc disease), cervical 201403/10/2022 documented as of this encounter (statuses as of 06/03/2022) [facility] History of Past illness Narrative* Problem Noted Date Resolved Date Elevated PSA 12/01/2020 05/16/2022 NO SHOW 06/05/2015 03/10/2022 Right hip pain 01/19/2015 05/16/2022 DDD (degenerative disc disease), thoracic 201405/16/2022 Cervical strain 10/21/2014 03/10/2022 DDD (degenerative disc disease), cervical 201403/10/2022 documented as of this encounter (statuses as of 06/29/2022) [facility] History of Past illness Narrative* Problem Noted Date Resolved Date NO SHOW 06/05/2015 03/10/2022 Cervical strain 10/21/2014 03/10/2022 DDD (degenerative disc disease), cervical 201403/10/2022 documented as of this encounter (statuses as of 03/10/2022) [facility] History of Past illness Narrative* Problem Noted Date Resolved Date NO SHOW 06/05/2015 03/10/2022 Cervical strain 10/21/2014 03/10/2022 DDD (degenerative disc disease), cervical 201403/10/2022 documented as of this encounter (statuses as of 03/11/2022) [facility] History of Past illness Narrative* Problem Noted Date Resolved Date NO SHOW 06/05/2015 03/10/2022 Cervical strain 10/21/2014 03/10/2022 DDD (degenerative disc disease), cervical 201403/10/2022 documented as of this encounter (statuses as of 04/08/2022) [facility] History of Past illness Narrative* Problem Noted Date Resolved Date NO SHOW 06/05/2015 03/10/2022 Cervical strain 10/21/2014 03/10/2022 DDD (degenerative disc disease), cervical 201403/10/2022 documented as of this encounter (statuses as of 05/06/2022) [facility] Delicia Nunez [facility] January 08, 2024 12:02pm Note Date/Time January 08, 2024 12: 02pm [facility] Medical Records Department [address] [place] [address] Counseling Note - Pharmacy 01/08/24 1202 MR#: [id number] Acct: [id number] Name: BRONSON WELLER Rep #:[id number] : 1965 58 From: Delicia Nunez PCP: Dr. Lobito Maldonado MD Status:A DM IN Y Location: [facility] [id number] Pharmacy [facility] Service has performed discharge medication reconciliation and counseling for this patient. 1. OXYCODONE 5MG PO Q6H PRN PAIN 2. TAMSULOSIN 0.4MG PO DAILY The patient's discharge medication list was reviewed for discrepancies and discrepancies were resolved. The patient was counseled on the following discharge medications and changes in medications for homegoing were reviewed. The Reason for Use, instructions for use, and potential side effects were reviewed for all new medications. The patient's questions regarding all of their medications were answered. The patient was able to verbally demonstrate an understanding of their dischargemedications. Medications at Discharge Home Medications amitriptyline 25 mg tablet 25 mg PO QHS depression 07/03/18 cholecalciferol (vitamin D3) 125 mcg (5,000 unit) capsule 1 cap PO DAILY supplement 11/09/18 hydrochlorothiazide 25 mg tablet 25 mg PO DAILY blood pressure/heart #30 tabs 06/05/20 gabapentin 300 mg capsule 300 mg PO BID nerve pain 10/06/20 pravastatin 40 mg tablet 20 mg PO QHS cholesterol 02/27/22 metformin 500 mg tablet 500 mg PO BID diabetes #0 tabs 03/04/22 aspirin 81 mg tablet,delayed release 81 mg PO DAILY heart health 07/04/22 escitalopram oxalate 10 mg tablet 10 mg PO DAILY depression 07/04/22 loratadine 10 mg capsule 10 mg PO DAILY allergies 07/04/22 losartan 25 mg tablet 25 mg PO DAILY blood pressure 07/04/22 amlodipine 10 mg tablet 10 mg PO DAILY blood pressure #90 tabs 06/26/23 ursodiol 250 mg tablet 250 mg PO BID liver fibrosis #180 tabs 08/21/23 diphenhydramine HCl 25 mg capsule (Benadryl) 25 mg PO TID PRN allergy symptoms #30 caps 10/10/23 levocarnitine 330 mg tablet 660 mg (2 x 330 mg) PO BID #120 tabs 10/24/23 ondansetron 4 mg disintegrating tablet 4 mg PO TID PRN nausea and vomiting #21 tabs 01/07/24 diphenhydramine HCl 25 mg capsule (Benadryl) 25 mg PO TID PRN itching #20 caps 01/08/24 oxycodone 5 mg capsule 5 mg PO Q6H PRN pain 5 days #20 caps 01/08/24 pantoprazole 40 mg tablet,delayed release (Protonix) 40 mg PO DAILY #30 tabs 01/08/24 tamsulosin 0.4 mg capsule 0.4 mg PO DAILY@1730 30 days #30 caps 01/08/24 01/08/24 1202 <Electronically signed by Delicia Nunez> Date _ Delicia Nunez Cosigner Signature (if applicable): Date CC: ~ Signed [facility] Work Phone: Discharge summary Author Magno Mora [facility] April 30, 2023 6:08am Note Date/Time April 30, 2023 5:0 8am [facility] Medical Records Department [address] [place] [address] Emergency Department Summary 04/30/23 MR#: [id number] Acct: [id number] Name: BRONSON WELLER Rep #:[id number] : 1965 58 From: Magno Mora MD PCP: Dr. Lobito Maldonado MD Status:R EG ER Location: ED HPI HPI - GI History of Present Illness Chief Complaint: Abd Pain Informant: patient Narrative Narrative: It is the pancreatitis again. Patient is a history of recurrent pancreatitis. He states he has not been drinking alcohol for some time. He was feeling well until just couple hours ago. He started to get epigastric pain that is beginning to radiate toward his back. This is a very typical feeling for him. He states he did not eat anything abnormal. He had a turkey and ham sandwich with some potatoes. It tasted well. He did vomit a little bit at home but no blood. He has mild nausea now. No change in bowel habits but he has been moving them normally. They have not been black or bloody. No fevers or chills. Only surgeries are cholecystectomy. [facility] Medical History Alcohol abuse Anxiety and depression Cancer Constipation Diabetes Essential (primary) hypertension Family history of cerebral aneurysm Former tobacco use Gastric ulcer GERD (gastroesophageal reflux disease) GI bleed Glaucoma Hyperlipidemia Liver fibrosis Myocardial infarct Neck pain Polyneuropathy PSA elevation PTSD (post-traumatic stress disorder) Seizure disorder Stroke/cerebrovascular accident TIA (transient ischemic attack) Vision loss of left eye Vision loss of right eye Home Medications amitriptyline 25 mg tablet 25 mg PO QHS depression 07/03/18 [History Last Taken 11/27/22] cholecalciferol (vitamin D3) 125 mcg (5,000 unit) capsule 1 cap PO DAILY supplement 11/09/18 [History Last Taken 11/28/22] hydrochlorothiazide 25 mg tablet 25 mg PO DAILY blood pressure/heart #30 tabs 06/05/20 [Rx Last Taken 11/28/22] gabapentin 300 mg capsule 300 mg PO BID nerve pain 10/06/20 [History Last Taken 11/28/22] pantoprazole 40 mg tablet,delayed release 40 mg PO DAILY gerd 02/27/22 [History Last Taken 11/28/22] pravastatin 40 mg tablet 20 mg PO QHS cholesterol 02/27/22 [History Last Taken 11/27/22] tamsulosin 0.4 mg capsule 0.4 mg PO QHS prostate 02/27/22 [History Last Taken 11/27/22] metformin 500 mg tablet 500 mg PO BID diabetes #0 tabs 03/04/22 [Rx Last Taken 11/28/22] aspirin 81 mg tablet,delayed release 81 mg PO DAILY heart health 07/04/22 [History Last Taken 11/28/22] escitalopram oxalate 10 mg tablet 10 mg PO DAILY depression 07/04/22 [History Last Taken 11/28/22] loratadine 10 mg capsule 10 mg PO DAILY allergies 07/04/22 [History Last Taken 11/28/22] losartan 25 mg tablet 25 mg PO DAILY blood pressure 07/04/22 [History Last Taken 11/28/22] amlodipine 10 mg tablet 10 mg PO DAILY blood pressure #90 tabs 07/27/22 [Rx Last Taken 11/28/22] levetiracetam 500 mg tablet 500 mg PO BID seizures #60 tabs 02/02/23 [Rx Last Taken Unknown] levocarnitine 330 mg tablet 330 mg PO BID #60 tabs 02/02/23 [Rx Last Taken Unknown] ursodiol 250 mg tablet 250 mg PO BID liver fibrosis #180 tabs 03/09/23 [Rx Last Taken Unknown] ondansetron 4 mg disintegrating tablet 4 mg PO Q8H PRN PRN Nausea #10 tabs 04/30/23 [Rx Last Taken Unknown] oxycodone-acetaminophen 5 mg-325 mg tablet 1 tab PO Q6H PRN PRN Pain 3 days #12 TABLETS 04/30/23 [Rx Last Taken Unknown] promethazine 25 mg tablet 25 mg PO Q6H PRN PRN Nausea #10 TABLETS 04/30/23 [Rx Last Taken Unknown] Allergy/AdvReac Type Severity Reaction Status Date / Time hydromorphone [From Dilaudid] Allergy Itching Verified 04/30/23 04:54 lisinopril Allergy Angioedema Verified 04/30/23 04:54 cyclobenzaprine AdvReac Severe Skin Verified 04/30/23 04:54 crawling hydrocodone bitartrate AdvReac Itching Verified 04/30/23 04:54 [From Vicodin] morphine AdvReac Itching Verified 04/30/23 04:54 tramadol AdvReac Itching Verified 04/30/23 04:54 Family History Mother Heart disease Sister Cerebral aneurysm Father Diabetes Kidney disease Anxiety and depression Surgical History History of cholecystectomy (12/2013) History of left heart catheterization (10/31/11) Social History household members: none Smoking Status: Former smoker Tobacco: How many years used: 7 Electronic Cigarette Use: not used alcohol intake: former details: 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 substance use type: does not use caffeine: No robbin/tenriism: Tenriism seatbelt use: always ROS ROS ED ROS Narrative A complete review of systems was performed and is negative except as documented in the history of present illness. Some specific details below. Constitutional: No recent fevers or chills. He felt fine until this started just couple hours ago. EYE: No visual complaints or pain. ENT: No difficulty swallowing. No swelling. No pain. CV: No chest pain or palpitations. Respiratory: No dyspnea. No hemoptysis. No difficulty taking breaths. GI: Please see history of present illness. : No frequency dysuria or hematuria. Musculoskeletal: No recent trauma. No pains. Skin: No rash. Nondiaphoretic. Neuro: No weakness or numbness. Endocrine: No polyuria or polydipsia. EXAM Physical Exam Narrative Exam Narrative: CONSTITUTIONAL: Patient is nontoxic in appearance. The patient looks comfortable. HEENT: No notable trauma. Mucous membranes are still moist. No sinus tenderness.No indication of pain with swallowing. EYES: No icterus. No conjunctival injection. No proptosis. CARDIOVASCULAR: Regular rate. Regular rhythm. No notable murmur. No JVD. RESPIRATORY: No respiratory distress. Breathing is unlabored. No wheezes. No rhonchi. No rales. No pain with a deep breath. GASTROINTESTINAL: Not distended. Bowel sounds are normal. Mild epigastric tenderness. But no mass. No hernia. No bruit. There is no rebound or guarding. GENITOURINARY: No tenderness over the bladder. No CVA tenderness. MUSCULOSKELETAL: Atraumatic. NEUROLOGICAL: Patient is alert and appropriate. No focal deficit noted. SKIN: No noted rashes. No diaphoresis. No pallor. PSYCHIATRIC: Patient is calm. Mood is appropriate. Const Vital Signs: 04/30/23 04:54 Temperature 98.5 F Temperature Source Temporal Pulse Rate 109 H Respiratory Rate 18 Blood Pressure 144/79 H Blood Pressure Mean 100 Pulse Ox 98 MDM MDM MDM Narrative Medical decision making narrative: My independent interpretation the patient's 4 view abdominal series show no acute process in chest or abdomen. Mild increased stool. No sign of obstruction or free air. Final reading is pending at this time. CBC shows a mild nonspecific elevation in the white count. Electrolytes show minimally low sodium that should self correct. Glucose is slightly up. Bicarb and anion gap are normal. Patient's liver function test are overall normal. Patient's lipase is up a bit at 350. But his lipase is normally elevated. He has had a couple that are normal but generally he is always up a bit. We rechecked the patient. He is still having some pain. But nausea is better. He would like to try to go home. I explained that he really needs to make sure that he limits his p.o. intake. Should be liquid diet. He should avoid alcoholas his alcohol is a bit elevated this time. I will write for meds for nausea and pain. I think he truly does have a painful condition. We discussed reasonsto return. I think he does have a reasonable chance of returning but he also has a chronic condition that it for the most part is managed as an outpatient and I think it is reasonable to try this. Lab Data Attestation: I reviewed the patient's lab results. Labs: Laboratory Results - last 24 hr 04/30/23 04:59 WBC 12.7 H RBC 4.58 L Hgb 14.4 Hct 40.8 MCV 89.1 MCH 31.4 MCHC 35.3 RDW Std Deviation 40.9 RDW Coeff of Armin 12.5 Plt Count 240 MPV 9.1 Immature Gran % (Auto) 0.400 Neut % (Auto) 73.6 H Lymph % (Auto) 17.5 L [place] % (Auto) 7.3 Eos % (Auto) 0.6 Baso % (Auto) 0.6 Absolute Neuts (auto) 9.3 H Absolute Lymphs (auto) 2.22 Nucleated RBC % 0 Sodium 133 L Potassium 3.7 Chloride 97 L Carbon Dioxide 23.0 Anion Gap 13 BUN 7 Creatinine 0.97 Estim Creat Clear Calc 85.71 Est GFR (MDRD) Af Amer 102 Est GFR (MDRD) Non-Af 84 BUN/Creatinine Ratio 7.2 L Glucose 206 H Calcium 9.8 Total Bilirubin 0.70 AST 17 ALT 29 Alkaline Phosphatase 72 Total Protein 8.3 H Albumin 4.1 Globulin 4.2 Albumin/Globulin Ratio 1.0 Lipase 351 H Ethyl Alcohol 63.0 Radiography X-Ray: Read by ED Physician Discharge Plan Triage Chief Complaint: Abd Pain ED Provider: Magno Mora Dx/Rx/DC Orders Clinical Impression: Alcohol use, Pancreatitis, Abdominal pain Instructions: ED Pancreatitis Prescriptions: New oxycodone-acetaminophen [oxycodone-acetaminophen] 5-325 mg tablet 1 tab PO Q6H PRN PRN (Reason: Pain) 3 Days Qty: 12 0RF promethazine [promethazine] 25 mg tablet 25 mg PO Q6H PRN PRN (Reason: Nausea) Qty: 10 0RF ondansetron [ondansetron] 4 mg tablet,disintegrating 4 mg PO Q8H PRN PRN (Reason: Nausea) Qty: 10 0RF No Action amitriptyline 25 mg tablet 25 mg PO QHS gabapentin 300 mg capsule 300 mg PO BID levetiracetam 500 mg tablet 500 mg PO BID Qty: 60 6RF levocarnitine 330 mg tablet 330 mg PO BID Qty: 60 6RF Rx Instructions: must administer with a meal/food cholecalciferol (vitamin D3) 5,000 capsule 1 cap PO DAILY tamsulosin 0.4 mg Capsule 0.4 mg PO QHS pantoprazole 40 mg Tablet,Delayed Release (Dr/Ec) 40 mg PO DAILY pravastatin 40 mg Tablet 20 mg PO QHS metformin 500 MG tablet 500 mg PO BID Qty: 0 0RF Hold Instructions: Hold for 3 days aspirin 81 mg Tablet,Delayed Release (Dr/Ec) 81 mg PO DAILY losartan 25 mg tablet 25 mg PO DAILY escitalopram oxalate 10 mg tablet 10 mg PO DAILY loratadine 10 MG capsule 10 mg PO DAILY hydrochlorothiazide 25 mg tablet 25 mg PO DAILY Qty: 30 11RF Hold Instructions: Hold for 3 days and start with 12.5 mg, half tablet daily. amlodipine 10 mg tablet 10 mg PO DAILY Qty: 90 3RF ursodiol 250 mg tablet 250 mg PO BID Qty: 180 1RF Primary Care Provider: Lobito Maldonado Referrals: Lobito Maldonado MD [Primary Care Provider] - 1-2 Days if not improving Disposition Disposition: Home, Self Care What to do if you have Problems For any increased pain, shortness of breath, bleeding, nausea or vomiting, chestpain, or any unexpected problems, contact your Primary Care Provider. Call [facility] ([phone]) or report to the closest Emergency Room. Call 911 if necessary. 04/30/23 0608 <Electronically signed by Magno Mora MD> Cosigner Signature (if applicable): CC: Dr. Lobito Maldonado MD ~ Signed [facility] Work Phone: Evaluation + Plan note No data available for this section [facility] Evaluation note* Diagnosis 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 epilepticus, unspecified epilepsy type (HCC) documented in this encounter [facility] [place] note* Diagnosis 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 epilepticus, unspecified epilepsy type (HCC) documented in this encounter [facility] [place] note* Diagnosis Onset Date Resolution Status Pancreatitis resolved Essential (primary) hypertension chronic Hyperlipidemia chronic Acute pancreatitis resolved [facility] Work Phone: Evaluation note* Diagnosis Onset Date Resolution Status Pancreatitis resolved Essential (primary) hypertension chronic Hyperlipidemia chronic Acute pancreatitis resolved Hypophosphatemia resolved Leukocytosis resolved [facility] Work Phone: Evaluation note* Diagnosis Type 2 diabetes mellitus without complication, with long-term current use of insulin ([facility]) Seasonal allergic rhinitis due to pollen Mixed hyperlipidemia 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 epilepticus, unspecified epilepsy type (HCC) Hypertension, essential Unspecified essential hypertension GERD without esophagitis Esophageal reflux Vitamin D deficiency Unspecified vitamin D deficiency documented in this encounter [facility] [place] note* Diagnosis Posttraumatic stress disorder- Primary 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 Mixed hyperlipidemia Type 2 diabetes mellitus without complication, with long-term current use of insulin ([facility]) documented in this encounter [facility] [place] note* Diagnosis Onset Date Resolution Status Pancreatitis resolved Essential (primary) hypertension chronic Hyperlipidemia chronic Acute pancreatitis resolved Hypophosphatemia resolved Leukocytosis resolved Fatty liver acute Pancreatitis acute [facility] Work Phone: Evaluation note* Diagnosis 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 epilepticus, unspecified epilepsy type (HCC) Hypertension, essential Unspecified essential hypertension documented in this encounter [facility] [place] note* Diagnosis Onset Date Resolution Status Essential (primary) hypertension chronic Hyperlipidemia chronic Acute pancreatitis resolved Hypophosphatemia resolved Leukocytosis resolved Fatty liver acute Pancreatitis acute [facility] Work Phone: Evaluation note* Diagnosis Type 2 diabetes mellitus without complication, with long-term current use of insulin ([facility])- Primary Seasonal allergic rhinitis due to pollen Mixed hyperlipidemia 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 epilepticus, unspecified epilepsy type (HCC) Hypertension, essential Unspecified essential hypertension GERD without esophagitis Esophageal reflux Vitamin D deficiency Unspecified vitamin D deficiency Cervical spondylosis Cervical spondylosis without myelopathy Lower urinary tract symptoms (LUTS) Other symptoms involving urinary system 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 Posttraumatic stress disorder [facility] Diagnosis Posttraumatic stress disorder [facility] Diagnosis 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 epilepticus, unspecified epilepsy type (HCC) Hypertension, essential Unspecified essential hypertension [facility] Diagnosis Onset Date Resolution Status Fatty liver acute Pancreatitis acute Abdominal pain acute [facility] Work Phone: Evaluation note* Diagnosis Onset Date Resolution Status Fatty liver acute Pancreatitis acute Abdominal pain acute Acute pancreatitis acute [facility] Work Phone: Evaluation note* Diagnosis Onset Date Resolution Status Fatty liver acute Pancreatitis acute Abdominal pain acute Acute pancreatitis acute Diabetes acute GERD (gastroesophageal reflux disease) acute Hyponatremia acute Pancreatitis acute Essential (primary) hypertension [facility] Work Phone: Evaluation note* Diagnosis Onset Date Resolution Status Abdominal pain acute Acute pancreatitis acute Diabetes acute GERD (gastroesophageal reflux disease) acute Hyponatremia acute Pancreatitis acute Essential (primary) hypertension chronic Epilepsy chronic Polyneuropathy [facility] Work Phone: Evaluation note* Diagnosis Low back pain, unspecified back [...] neoplasm of prostate [facility] Diagnosis Onset Date Resolution Status Abdominal pain acute Acute pancreatitis acute Diabetes acute GERD (gastroesophageal reflux disease) acute Hyponatremia acute Pancreatitis acute Essential (primary) hypertension chronic Epilepsy chronic Polyneuropathy chronic Acute pancreatitis acute Diabetes acute Hyperlipidemia [facility] Work Phone: evaluation note* Diagnosis Hypertension, essential Unspecified essential hypertension 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 epilepticus, unspecified epilepsy type (HCC) [facility] Diagnosis Onset Date Resolution Status Abdominal pain acute GERD (gastroesophageal reflux disease) acute Hyponatremia acute Pancreatitis acute Essential (primary) hypertension chronic Acute pancreatitis resolved Epilepsy chronic Polyneuropathy chronic Acute pancreatitis resolved Acute recurrent pancreatitis acute [facility] Work Phone: Evaluation note* Diagnosis Alcohol-induced chronic pancreatitis (HCC)- Primary Chronic pancreatitis [facility]* Diagnosis Onset Date Resolution Status GERD (gastroesophageal reflux disease) acute Hyponatremia acute Pancreatitis acute Essential (primary) hypertension chronic Acute pancreatitis resolved Epilepsy chronic Polyneuropathy chronic Acute pancreatitis resolved [facility] Work Phone: Evaluation note* Diagnosis Seasonal allergic rhinitis due to pollen Posttraumatic stress disorder [facility] Diagnosis Onset Date Resolution Status Epilepsy chronic Polyneuropathy chronic Acute pancreatitis resolved Abdominal pain acute Nausea acute Pancreatitis acute [facility] Work Phone: Evaluation note* Diagnosis Alcohol-induced chronic pancreatitis (HCC)- Primary Chronic pancreatitis [facility] Diagnosis Onset Date Resolution Status Epilepsy chronic Polyneuropathy chronic Acute pancreatitis resolved Abdominal pain acute Acute pancreatitis acute Nausea acute Pancreatitis acute [facility] Work Phone: Evaluation note* Diagnosis Alcohol-induced chronic pancreatitis (HCC)- Primary Chronic pancreatitis Type 2 diabetes mellitus without complication, with long-term current use of insulin (HCC) Hypertension, essential Unspecified essential hypertension Cervical spondylosis Cervical spondylosis without myelopathy Nonintractable generalized 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 (HCC) Fatty liver due to alcoholism [facility]* Diagnosis Hypertension, essential Unspecified essential hypertension 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 epilepticus, unspecified epilepsy type (HCC) [facility]* Diagnosis Onset Date Resolution Status Acute pancreatitis resolved Abdominal pain resolved Acute pancreatitis resolved Nausea resolved Pancreatitis resolved [facility] Work Phone: Evaluation note* Diagnosis Sore throat- Primary Acute pharyngitis URI, acute Acute upper respiratory infections of unspecified site [facility] Diagnosis Onset Date Resolution Status Acute pancreatitis resolved Pancreatitis chronic Abdominal pain resolved Acute pancreatitis resolved Nausea resolved Heart palpitations acute Pancreatitis chronic [facility] Work Phone: Evaluation note* Diagnosis Onset Date Resolution Status Pancreatitis chronic Abdominal pain resolved Acute pancreatitis resolved Nausea resolved Heart palpitations acute Pancreatitis chronic [facility] Work Phone: Evaluation note* Diagnosis Nausea- Primary Nausea alone Hypertension, essential Unspecified essential hypertension 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 epilepticus, unspecified epilepsy type (HCC) Alcohol-induced chronic pancreatitis (HCC) Chronic pancreatitis Dizziness Dizziness and giddiness Type 2 diabetes mellitus without complication, with long-term current use of insulin ([facility]) [facility] Diagnosis Onset Date Resolution Status Pancreatitis chronic Abdominal pain resolved Acute pancreatitis resolved Nausea resolved Heart palpitations acute Pancreatitis chronic Epilepsy chronic Polyneuropathy [facility] Work Phone: Evaluation note* Diagnosis Type 2 diabetes mellitus without [...] eyes Preglaucoma, unspecified [facility] Diagnosis Onset Date Resolution Status Epilepsy chronic Polyneuropathy chronic Pancreatitis [facility] Work Phone: Evaluation note* Diagnosis Posttraumatic stress disorder Seasonal allergic rhinitis due to pollen [facility]* Diagnosis Type 2 diabetes mellitus without complication, with long-term current use of insulin ([facility])- Primary Dermatophytosis, nail Dermatophytosis of nail Pain in toe of left foot Pain in limb Pain in toe of right foot Pain in limb Diminished pulses in lower extremity Other symptoms involving cardiovascular system [facility] Diagnosis Type 2 diabetes mellitus without complication, with long-term current use of insulin ([facility])- Primary Encounter for immunization Need for other specified prophylactic vaccination against single bacterial disease [facility]* Diagnosis Onset Date Resolution Status Pancreatitis [facility] Work Phone: Evaluation note* Diagnosis Hypertension, essential Unspecified essential hypertension [facility]* Diagnosis 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 epilepticus, unspecified epilepsy type (HCC) [facility]* Diagnosis Onset Date Resolution Status Pancreatitis chronic Hyperammonemia acute Epilepsy chronic Polyneuropathy [facility] Work Phone: Evaluation note* Diagnosis Type 2 diabetes mellitus without complication, with long-term current use of insulin (HCC)- Primary [facility]* Diagnosis Encounter for immunization- Primary Need for other specified prophylactic vaccination against single bacterial disease [facility] Diagnosis Onset Date Resolution Status Pancreatitis chronic Hyperammonemia acute Epilepsy chronic Polyneuropathy chronic Alcohol abuse acute Hyponatremia acute Acute on chronic pancreatitis chronic Essential (primary) hypertension [facility] Work Phone: Evaluation note* Diagnosis Type 2 diabetes mellitus without retinopathy (HCC)- Primary Type II or unspecified type diabetes mellitus without mention of complication, not stated as uncontrolled Primary open angle glaucoma (POAG) of both eyes, mild stage Optic cupping of both eyes Combined form of age-related cataract, both eyes Hypertensive retinopathy, bilateral Myopia, bilateral Myopia Regular astigmatism, bilateral Presbyopia [facility]* Diagnosis Medicare annual wellness visit, subsequent- Primary Routine general medical examination [facility] a [facility] Shortness of breath Tachycardia Tachycardia, unspecified Hypertension, essential Unspecified essential hypertension Alcohol-induced chronic pancreatitis (HCC) Chronic pancreatitis Type 2 diabetes mellitus without complication, with long-term current use of insulin (HCC) Mixed hyperlipidemia Prostate cancer (HCC) Malignant neoplasm of prostate Nonintractable generalized 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 (HCC) [facility]* Diagnosis Hypertension, essential Unspecified essential hypertension Posttraumatic stress disorder Seasonal allergic rhinitis due to pollen [facility]* Diagnosis 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 epilepticus, unspecified epilepsy type (HCC) [facility]* Diagnosis 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 epilepticus, unspecified epilepsy type (HCC) [facility]* Diagnosis Type 2 diabetes mellitus without complication, with long-term current use of insulin (HCC) [facility] Diagnosis Type 2 diabetes mellitus without complication, with long-term current use of insulin (HCC) [facility] Diagnosis Need for vaccination- Primary Need for prophylactic vaccination and inoculation against unspecified single disease [facility]* Diagnosis GERD without esophagitis Esophageal reflux [facility]* Diagnosis Shortness of breath [facility]* Diagnosis Pneumonia of left lower lobe due to infectious organism [facility] Diagnosis Left hip pain Pain in joint, pelvic region and thigh [facility]* Diagnosis 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)- Primary Hypertension, essential Unspecified essential hypertension Bronchitis Bronchitis, not specified as acute or chronic [facility]* Diagnosis Posttraumatic stress disorder Seasonal allergic rhinitis due to pollen Hypertension, essential Unspecified essential hypertension [facility]* Diagnosis Primary open angle glaucoma (POAG) of both eyes, mild stage- Primary Optic cupping of both eyes Type 2 diabetes mellitus without retinopathy (HCC) Type II or unspecified type diabetes mellitus without mention of complication, not stated as uncontrolled Combined form of age-related cataract, both eyes Myopia, bilateral Myopia Regular astigmatism, bilateral Presbyopia [facility]* Diagnosis Bronchitis Bronchitis, not specified as acute or chronic [facility] Diagnosis Hypomagnesemia- Primary Disorders of magnesium metabolism Lower urinary tract symptoms (LUTS) Other symptoms involving urinary system [facility]* Diagnosis Posttraumatic stress disorder Seasonal allergic rhinitis due to pollen [facility]* Diagnosis Type 2 diabetes mellitus without complication, with long-term current use of insulin ([facility])- Primary Hypertension, essential Unspecified essential hypertension Mixed hyperlipidemia 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 Prostate cancer (HCC) Malignant neoplasm of prostate Nonintractable generalized 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 (HCC) Hypomagnesemia 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) Chronic pancreatitis [facility]* Diagnosis Type 2 diabetes mellitus without complication, with long-term current use of insulin ([facility]) [facility] Diagnosis Posttraumatic stress disorder Seasonal allergic rhinitis due to pollen GERD without esophagitis Esophageal reflux [facility]* Diagnosis Posttraumatic stress disorder GERD without esophagitis Esophageal reflux Seasonal allergic rhinitis due to pollen Lower urinary tract symptoms (LUTS) Other symptoms involving urinary system Hypomagnesemia Disorders of magnesium metabolism [facility] Diagnosis Posttraumatic stress disorder GERD without esophagitis Esophageal reflux Seasonal allergic rhinitis due to pollen Lower urinary tract symptoms (LUTS) Other symptoms involving urinary system Hypomagnesemia Disorders of magnesium metabolism [facility] Author Dr. Carr [facility] October 26, 2022 1:22am Note Date/Time October 26, 2022 1 2:44am [facility] Medical Records Department [address] [place] [address] H&P Exam - Hospitalist 10/26/22 0043 MR#: [id number] Acct: [id number] Name: BRONSON WELLER Rep #:[id number] : 1965 57 From: Mia Carr MD PCP: Dr. Lobito Maldonado MD Status:A DM [facility] Location: [place] [address] HPI - General General Date of Admission: 10/26/22 Date of Service: 10/26/22 Chief Complaint: Epigastric pain - 1 day HPI Narrative BRONSON WELLER, is a 57 M who presents with the above. Patient has past medical history of recurrent pancreatitis, previous episodes were related to alcohol. Patient stated that since his last discharge on 09/08/22, he has quit drinking alcohol. He was in his usual state of health until this afternoon when he had sudden onset of abdominal discomfort was associated with nausea. Abdominal painfelt very much like previous pancreatitis. He denied any new medications. He has had his gallbladder taken out. Vitals in ED showed blood pressure 126/102, heart rate 109, respiratory rate 14,temperature 98F, oxygen sat is 99% on room air. WBC 15.6, hemoglobin 14.1, platelet count 211. CMP unremarkable except for BUN 22, creatinine 1.13, previous creatinine 0.82. LFTs unremarkable. Lipase 930 PFSH Medical History Acute pancreatitis Alcohol abuse Anxiety and depression Cancer Cerebrovascular disease Chronic hip pain Chronic pain Constipation Diabetes Diabetes mellitus type 2 in nonobese Essential (primary) hypertension Family history of cerebral aneurysm Former tobacco use Gastric ulcer GERD (gastroesophageal reflux disease) GERD (gastroesophageal reflux disease) GI bleed Glaucoma Hyperlipidemia Neck pain Other generalized epilepsy and epileptic syndromes, not intractable, without status epilepticus Pancreatitis Polyneuropathy PSA elevation PTSD (post-traumatic stress disorder) Seizure disorder TIA (transient ischemic attack) Type 2 diabetes mellitus Vision loss of left eye Vision loss of right eye Home Medications nitroglycerin 0.4 mg sublingual tablet 0.4 mg sublingual Q5M PRN Chest Pain 07/15/13 [History Last Taken 08/22/15] amitriptyline 25 mg tablet 25 mg PO QHS depression 07/03/18 [History Last Taken 09/05/22] cholecalciferol (vitamin D3) 125 mcg (5,000 unit) capsule 1 cap PO DAILY supplement 11/09/18 [History Last Taken 09/06/22] hydrochlorothiazide 25 mg tablet 25 mg PO DAILY blood pressure/heart #30 tabs 06/05/20 [Rx Last Taken 09/06/22] gabapentin 300 mg capsule 300 mg PO BID nerve pain 10/06/20 [History Last Taken 09/05/22] insulin glargine 100 unit/mL subcutaneous solution (Lantus U-100 Insulin) 10 unit SQ QHS diabetes 12/30/20 [History Last Taken 09/04/22] latanoprost 0.005 % eye drops 1 drp EACH EYE QHS glaucoma 12/07/21 [History Last Taken 09/05/22] magnesium oxide 400 mg (241.3 mg magnesium) tablet 400 mg PO BID supplement 02/27/22 [History Last Taken 09/06/22] pantoprazole 40 mg tablet,delayed release 40 mg PO DAILY gerd 02/27/22 [History Last Taken 09/06/22] pravastatin 40 mg tablet 60 mg PO QHS cholesterol 02/27/22 [History Last Taken 09/05/22] tamsulosin 0.4 mg capsule 0.4 mg PO QHS prostate 02/27/22 [History Last Taken 09/05/22] metformin 500 mg tablet 500 mg PO BID diabetes #0 tabs 03/04/22 [Rx Last Taken 09/06/22] aspirin 81 mg tablet,delayed release 81 mg PO DAILY heart health 07/04/22 [History Last Taken 09/06/22] escitalopram oxalate 10 mg tablet 10 mg PO DAILY depression 07/04/22 [History Last Taken 09/06/22] fluticasone propionate 50 mcg/actuation nasal spray,suspension (Flonase Allergy Relief) 2 spray intranasal DAILY allergies 07/04/22 [History Last Taken 09/04/22] loratadine 10 mg capsule 10 mg PO DAILY allergies 07/04/22 [History Last Taken 09/06/22] losartan 25 mg tablet 25 mg PO DAILY blood pressure 07/04/22 [History Last Taken 09/06/22] omega-3 fatty acids-fish oil 684 mg-1,200 mg capsule,delayed release 2 cap PO DAILY supplement 07/04/22 [History Last Taken 09/06/22] amlodipine 10 mg tablet 10 mg PO DAILY blood pressure #90 tabs 07/27/22 [Rx Last Taken 09/06/22] levetiracetam 500 mg tablet 500 mg PO BID seizures #60 tabs 08/08/22 [Rx Last Taken 09/06/22] naproxen 500 mg tablet 500 mg PO BID PRN Pain 09/06/22 [History Last Taken Unknown] simethicone 80 mg chewable tablet (Gas Relief 80 (simethicone)) 80 mg PO DAILY PRN gas relief 09/06/22 [History Last Taken Unknown] folic acid 1 mg tablet 1 mg PO BREAKFAST #30 tabs 09/08/22 [Rx Last Taken Unknown] upjkov-slgrfjhn-fsaxugq 12,000-38,000-60,000 unit capsule,delayed rel (Creon) 1 cap PO .TIDAC 30 days #90 caps 09/08/22 [Rx Last Taken Unknown] thiamine HCl (vitamin B1) 100 mg tablet (Vitamin B-1) 100 mg PO BREAKFAST #30 tabs 09/08/22 [Rx Last Taken Unknown] ursodiol 250 mg tablet 250 mg PO BID liver fibrosis #180 tabs 09/21/22 [Rx Last Taken Unknown] levocarnitine 330 mg tablet 330 mg PO BID #60 tabs 09/28/22 [Rx Last Taken Unknown] Allergy/AdvReac Type Severity Reaction Status Date / Time lisinopril Allergy Angioedema Verified 10/25/22 18:30 cyclobenzaprine AdvReac Severe Skin Verified 10/25/22 18:30 crawling hydrocodone bitartrate AdvReac Itching Verified 10/25/22 18:30 [From Vicodin] hydromorphone [From Dilaudid] AdvReac Itching Verified 10/25/22 18:30 morphine AdvReac Itching Verified 10/25/22 18:30 tramadol AdvReac Itching Verified 10/25/22 18:30 Family History Mother Heart disease Sister Cerebral aneurysm Surgical History History of cholecystectomy (12/2013) History of left heart catheterization (10/31/11) Social History (Updated 10/26/22 @ 01:[address] Mia Carr MD) Smoking Status: Former smoker Tobacco: How many years used: 7 Electronic Cigarette Use: not used alcohol intake: former details: states a couple beers every now on then, does not have daily substance use type: does not use caffeine: No robbin/tenriism: Tenriism seatbelt use: always ROS ROS Narrative Constitutional: Denies: Anorexia, Chills, Fever, Night Sweats, Weight Change Eyes: Denies: Blurred vision, Cataracts, Conjunctivae Inflammation, Pain, Redness, Vision Change HEENT: Denies: Difficulty Hearing, Difficulty Swallowing, Head Aches, Hearing Changes, Sinus Congestion, Sinus Drainage Cardiovascular: Denies: Chest Pain, Orthopnea, Palpitations Respiratory: Denies: Cough, Shortness of breath at rest, Sputum production Gastrointestinal: See HPI Genitourinary: Denies: Dysuria Musculoskeletal: Denies: Joint Pain, Joint stiffness, Joint swelling, Joint Tenderness Skin: Denies: Rash, Wounds Neurological: Denies: Numbness, Tingling, Focal weakness Vital Signs Vital Signs Vital Signs: 10/25/22 18:30 10/25/22 23:48 10/26/22 00:39 Temperature 98 F 98.6 F Temperature Source Temporal Temporal Pulse Rate 109 H 94 81 Respiratory Rate 14 25 H 24 H Blood Pressure 126/102 H 94/69 128/90 H Blood Pressure Mean 110 77 102 Pulse Ox 99 100 97 Oxygen Delivery Method Room Air Room Air Room Air Weight Weight: 88.5 kg Body Mass Index (BMI) 28.0 Results Lab / Micro Data Result Diagrams: 10/25/22 20:40 10/25/22 20:40 Labs: Laboratory Results - last 24 hr 10/25/22 20:40: WBC 15.6 H, RBC 4.48 L, Hgb 14.1, Hct 42.0, MCV 93.8, MCH 31.5, MCHC 33.6, RDW Std Deviation 43.3, RDW Coeff of Armin 12.6, Plt Count 211, MPV 9.7, Immature Gran % (Auto) 0.400, Neut % (Auto) 73.5 H, Lymph % (Auto) 18.1 L, [place] % (Auto) 6.5, Eos % (Auto) 1.1, Baso % (Auto) 0.4, Absolute Neuts (auto) 11.5 H, Absolute Lymphs (auto) 2.83, Nucleated RBC % 0 10/25/22 20:40: Sodium 139, Potassium 3.7, Chloride 104, Carbon Dioxide 26.0, Anion Gap 9, BUN 22 H, Creatinine 1.13, Estim Creat Clear Calc 74.47, Est GFR (MDRD) Af Amer 86, Est GFR (MDRD) Non-Af 71, BUN/Creatinine Ratio 19.5, Glucose 177 H, Calcium 9.7, Total Bilirubin 0.60, Direct Bilirubin 0.22, AST 12 L, ALT 20, Alkaline Phosphatase 68, Total Protein 8.3 H, Albumin 4.4, Globulin 3.9, Lipase 930 H 10/25/22 20:40: Urine Color Yellow, Urine Clarity Clear, Urine pH 6.0, Ur Specific [place] 1.020, Urine Protein 100 H, Urine Glucose (UA) 50 H, Urine Ketones Negative, Urine Occult Blood Negative, Urine Nitrite Negative, Urine Bilirubin Negative, Urine Urobilinogen 1 H, Ur Leukocyte Esterase Negative, Urine RBC 0-5 SEEN, Urine WBC 0-5 SEEN, Ur Squamous Epith Cells 0-5 SEEN, Urine Bacteria 0 SEEN, Urine Mucus 0 SEEN Assessment & Plan Assessment/Plan (1) Acute recurrent pancreatitis: PLAN: Plan 1. Acute onset of epigastric pain secondary to acute recurrent pancreatitis Unclear etiology for current pancreatitis; patient stated that he is quit drinking alcohol Elevated lipase of 930 Admitted observation, pain control, IV fluids, liquid diet, advance as patient. Hold hydrochlorothiazide and lisinopril as both can cause pancreatitis in rare cases Continue on Creon 2. Hypertension, blood pressure relatively low, continue amlodipine and losartan Hold losartan and hydrochlorothiazide for reasons above 3. Type II DM, hold metformin, continue Lantus with insulin sliding scale 4. Seizure disorder, continue on Keppra 5. Anxiety/depression, continue Zoloft 6. Hyperlipidemia, continue statin 7. DVT PPx- low risk, early ambulation recommended Charges/Coding Visit Charges Inpatient E&M: 57387 Subs Hosp L2 10/26/22 0122 <Electronically signed by Mia Carr MD> Cosigner Signature (if applicable): CC: Dr. Mia Carr MD; Dr. Lobito Maldonado MD~ Signed [facility] Work Phone: History and physical note Author Dr. Pedraza [facility] November 29, 2022 3:28am Note Date/Time November 29, 2022 2:44 am [facility] Medical Records Department [address] [place] [address] History & Physical Exam 11/29/22 0239 MR#: [id number] Acct: [id number] Name: BRONSON WELLER Rep #:[id number] : 1965 57 From: Mayelin Pedraza MD PCP: Dr. Lobito Maldonado MD Status:A DM IN Location: [facility] [place] [id number] HPI - General General Date of Admission: 11/29/22 Date of Service: 11/29/22 Chief Complaint: Recurrent epigastric pain, nausea without emesis. HPI Narrative The patient is a 57 y/o M w/ PMHx: Anxiety and Depression, HTN, HLD, Diabetes mellitus type II w/ chronic neuropathy, Chronic pain syndrome, Former tobacco use, GERD w/ Hx GI bleed w/ Gastric ulcer, Hx TIA/CVA, Seizure disorder, BPH, EtOH abuse with history of liver fibrosis reporting sober x 2 months, Hx recurrent Acute Pancreatitis most recently treated and evaluated w/ discharge 09/08/22 with history of cholecystectomy previously, not markedly elevated triglyceride level and denies persistent alcohol abuse currently who re-presentsto the [facility] ED on 11/29/22 with history of recurrent epigastric abdominal pain reporting that he is not been drinking and attempting to have a healthier intakewith the evening prior reported his dinner is an egg roll with more abdominal discomfort following with some mild radiation toward the right with nausea withoutemesis with still ongoing ability to eat and no fevers or chills but given persistent ongoing pain prompted ED evaluation. He notes this pain is similar to his recent admission for acute pancreatitis, sharp severe 9/10 pain prior to arrival and now following pain medications 7/10 in severity with continued improvement. Work-up in the ED included T96.9, heart rate 108, BP 134/91, respiratory rate 18, CBC with WBC 15.9, hemoglobin 14.9, platelet 225 with left shift, CMP with sodium 134, glucose 223, hepatic profile with T. bili 0.8, AST/ALT 13/20, alk phos 71 otherwise not marked appearing, lipase 2513, ethyl alcohol less than 3. In the ED patient ministered Phenergan 12.5 mg IM IM x1, Zofran 4 mg IV x1, Dilaudid 0.5 mg IV x2, Benadryl 25 mg IV x1 as well as 1 L normal saline bolus. FORMERLY [facility], 1928–1983 Medical History (Updated 11/29/22 @ 03:[address] Magno Mora MD) Alcohol abuse Anxiety and depression Cancer Constipation Diabetes Essential (primary) hypertension Family history of cerebral aneurysm Former tobacco use Gastric ulcer GERD (gastroesophageal reflux disease) GI bleed Glaucoma Hyperlipidemia Myocardial infarct Neck pain Pancreatitis Polyneuropathy PSA elevation PTSD (post-traumatic stress disorder) Seizure disorder Stroke/cerebrovascular accident TIA (transient ischemic attack) Vision loss of left eye Vision loss of right eye Home Medications nitroglycerin 0.4 mg sublingual tablet 0.4 mg sublingual Q5M PRN Chest Pain 07/15/13 [History Last Taken 08/22/15] amitriptyline 25 mg tablet 25 mg PO QHS depression 07/03/18 [History Last Taken 09/05/22] cholecalciferol (vitamin D3) 125 mcg (5,000 unit) capsule 1 cap PO DAILY supplement 11/09/18 [History Last Taken 09/06/22] hydrochlorothiazide 25 mg tablet 25 mg PO DAILY blood pressure/heart #30 tabs 06/05/20 [Rx Last Taken 09/06/22] gabapentin 300 mg capsule 300 mg PO BID nerve pain 10/06/20 [History Last Taken 09/05/22] insulin glargine 100 unit/mL subcutaneous solution (Lantus U-100 Insulin) 10 unit SQ QHS diabetes 12/30/20 [History Last Taken 09/04/22] latanoprost 0.005 % eye drops 1 drp EACH EYE QHS glaucoma 12/07/21 [History Last Taken 09/05/22] magnesium oxide 400 mg (241.3 mg magnesium) tablet 400 mg PO BID supplement 02/27/22 [History Last Taken 09/06/22] pantoprazole 40 mg tablet,delayed release 40 mg PO DAILY gerd 02/27/22 [History Last Taken 09/06/22] pravastatin 40 mg tablet 60 mg PO QHS cholesterol 02/27/22 [History Last Taken 09/05/22] tamsulosin 0.4 mg capsule 0.4 mg PO QHS prostate 02/27/22 [History Last Taken 09/05/22] metformin 500 mg tablet 500 mg PO BID diabetes #0 tabs 03/04/22 [Rx Last Taken 09/06/22] aspirin 81 mg tablet,delayed release 81 mg PO DAILY heart health 07/04/22 [History Last Taken 09/06/22] escitalopram oxalate 10 mg tablet 10 mg PO DAILY depression 07/04/22 [History Last Taken 09/06/22] fluticasone propionate 50 mcg/actuation nasal spray,suspension (Flonase Allergy Relief) 2 spray intranasal DAILY allergies 07/04/22 [History Last Taken 09/04/22] loratadine 10 mg capsule 10 mg PO DAILY allergies 07/04/22 [History Last Taken 09/06/22] losartan 25 mg tablet 25 mg PO DAILY blood pressure 07/04/22 [History Last Taken 09/06/22] omega-3 fatty acids-fish oil 684 mg-1,200 mg capsule,delayed release 2 cap PO DAILY supplement 07/04/22 [History Last Taken 09/06/22] amlodipine 10 mg tablet 10 mg PO DAILY blood pressure #90 tabs 07/27/22 [Rx Last Taken 09/06/22] levetiracetam 500 mg tablet 500 mg PO BID seizures #60 tabs 08/08/22 [Rx Last Taken 09/06/22] naproxen 500 mg tablet 500 mg PO BID PRN Pain 09/06/22 [History Last Taken Unknown] simethicone 80 mg chewable tablet (Gas Relief 80 (simethicone)) 80 mg PO DAILY PRN gas relief 09/06/22 [History Last Taken Unknown] folic acid 1 mg tablet 1 mg PO BREAKFAST #30 tabs 09/08/22 [Rx Last Taken Unknown] xkcvmf-hgdikujd-mphdsfu 12,000-38,000-60,000 unit capsule,delayed rel (Creon) 1 cap PO .TIDAC 30 days #90 caps 09/08/22 [Rx Last Taken Unknown] thiamine HCl (vitamin B1) 100 mg tablet (Vitamin B-1) 100 mg PO BREAKFAST #30 tabs 09/08/22 [Rx Last Taken Unknown] ursodiol 250 mg tablet 250 mg PO BID liver fibrosis #180 tabs 09/21/22 [Rx Last Taken Unknown] levocarnitine 330 mg tablet 330 mg PO BID #60 tabs 09/28/22 [Rx Last Taken Unknown] Allergy/AdvReac Type Severity Reaction Status Date / Time lisinopril Allergy Angioedema Verified 11/09/22 16:17 cyclobenzaprine AdvReac Severe Skin Verified 11/09/22 16:17 crawling Iodinated Contrast Media AdvReac Intermediate ITCHY FEET Verified 11/09/22 16:17 [iodine contrast] hydrocodone bitartrate AdvReac Itching Verified 11/09/22 16:17 [From Vicodin] hydromorphone [From Dilaudid] AdvReac Itching Verified 11/09/22 16:17 morphine AdvReac Itching Verified 11/09/22 16:17 tramadol AdvReac Itching Verified 11/09/22 16:17 Family History (Updated 11/29/22 @ 03:[address] Mayelin Pedraza MD) Mother Heart disease Sister Cerebral aneurysm Father Diabetes Kidney disease Anxiety and depression Surgical History (Updated 11/29/22 @ 03:[address] Mayelin Pedraza MD) History of cholecystectomy (12/2013) History of left heart catheterization (10/31/11) Social History (Updated 11/29/22 @ 03:[address] Mayelin Pedraza MD) household members: none Smoking Status: Former smoker Tobacco: How many years used: 7 Electronic Cigarette Use: not used alcohol intake: former details: 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 substance use type: does not use caffeine: No robbin/tenriism: Tenriism seatbelt use: always ROS ROS Narrative Admission Review of Systems: CONSTITUTIONAL: No weight loss, fever, chills, +weakness or fatigue. HEENT: + History of bilateral vision deficits. Eyes: No double vision or yellow sclerae. Ears, Nose, Throat: No hearing loss, sneezing, congestion, runny nose or sore throat. SKIN: + Pruritus following recent pain regimen which is a chronic issue. CARDIOVASCULAR: No chest pain, chest pressure or chest discomfort, palpitations,edema, orthopnea, syncopal events. RESPIRATORY: No shortness of breath, cough or sputum, wheezing, hemoptysis. GASTROINTESTINAL: + anorexia, nausea without vomiting, abdominal pain, No diarrhea, melena, BRBPR. GENITOURINARY: No dysuria, frequency, urgency or retention. NEUROLOGICAL: No headache, dizziness, syncope, paralysis, ataxia, numbness or tingling in the extremities, focal weakness, change in bowel or bladder control,seizure. MUSCULOSKELETAL: + muscle, back pain, joint pain or stiffness. HEMATOLOGIC: + easy bleeding or bruising. LYMPHATICS: No enlarged nodes. No history of splenectomy. PSYCHIATRIC: + history of depression or anxiety. ENDOCRINOLOGIC: No reports of sweating, cold or heat intolerance. No polyuria orpolydipsia. ALLERGIES: + history of angioedema, rhinitis. Vital Signs Vital Signs Vital Signs: 11/28/22 21:43 11/28/22 21:44 Temperature 96.9 F L 96.9 F L Temperature Source Temporal Temporal Pulse Rate 108 H 108 H Respiratory Rate 18 18 Blood Pressure 134/91 H 134/91 H Blood Pressure Mean 105 105 Weight Weight: 182 lb 5.156 oz Body Mass Index (BMI) 26.2 Physical Exam Narrative Physical Examination: General: Awake, alert, oriented x 3 and cooperative, seated upright in the ED bed, itching, notes pain improving, currently 7/10. Skin: Normal color, normal turgor, no icterus, no cyanosis. HEENT: AT/NC, EOMI, PERRLA, dry MM, no carotid bruits or JVD noted. Lungs: Mild diminished, greater bases, appropriate effort, no rales, ronchi or wheezing. Heart: Regular rate and rhythm; no gallop, rub audible. Abdomen: Soft, notably improved, no marked discomfort with palpation of the epigastric region or the right upper quadrant, no guarding or rebound, no obvious distention, mildly hyperactive bowel sounds, + HM. Extremities: No cyanosis, clubbing, or edema. Neurological: Patient awake, alert, oriented as noted, cognitive function intact; pupils equally reactive to light and accommodation, cranial nerves II-XIIgrossly normal, moving all 4 extremities, no focal deficits, strength improving,mildly to moderately global decrease. Psychiatric: Affect appears mildly uncomfortable but improving, no acute evidence of depressive or anxiety feelings but does have underlying history. Results Lab / Micro Data Result Diagrams: 11/28/22 23:55 11/28/22 23:55 Labs: Laboratory Results - last 24 hr 11/28/22 23:55: WBC 15.9 H, RBC 4.64, Hgb 14.9, Hct 42.1, MCV 90.7, MCH 32.1 H, MCHC 35.4, RDW Std Deviation 39.1, RDW Coeff of Armin 11.8, Plt Count 225, MPV 9.4, Immature Gran % (Auto) 0.400, Neut % (Auto) 78.1 H, Lymph % (Auto) 14.0 L, [place] % (Auto) 6.5, Eos % (Auto) 0.6, Baso % (Auto) 0.4, Absolute Neuts (auto) 12.4 H, Absolute Lymphs (auto) 2.22, Nucleated RBC % 0.1 11/28/22 23:55: Sodium 134 L, Potassium 3.5, Chloride 100, Carbon Dioxide 26.0, Anion Gap 8, BUN 15, Creatinine 1.17, Estim Creat Clear Calc 71.93, Est GFR (MDRD) Af Amer 82, Est GFR (MDRD) Non-Af 68, BUN/Creatinine Ratio 12.8, Glucose 223 H, Calcium 9.9, Total Bilirubin 0.80, AST 13 L, ALT 20, Alkaline Imhajtctsll55, Total Protein 8.3 H, Albumin 4.3, Globulin 4.0, Albumin/Globulin Ratio 1.1, Lipase 2513 H 11/29/22 01:15: Ethyl Alcohol < 3.0 Assessment & Plan Assessment/Plan (1) Pancreatitis: PLAN: Plan The patient is a 57 y/o M w/ PMHx: Anxiety and Depression, HTN, HLD, Diabetes mellitus type II w/ chronic neuropathy, Chronic pain syndrome, Former tobacco use,GERD w/ Hx GI bleed w/ Gastric ulcer, Hx TIA/CVA, Seizure disorder, BPH, EtOH abuse with history of liver fibrosis, Hx recurrent Acute Pancreatitis most recently treated and evaluated w/ discharge 09/08/22 with history of cholecystectomy previously, not markedly elevated triglyceride level and denies persistent alcohol abuse currently who re-presents to the [facility] ED on 11/29/22 with history of recurrent epigastric abdominal pain reporting that he is not been drinking and attempting to have a healthier intake with the evening prior reported his dinner is an egg roll with more abdominal discomfort following withsome mild radiation toward the right with nausea without emesis with still ongoing ability to eat and no fevers or chills but given persistent ongoing painprompted ED evaluation. He notes this pain is similar to his recent admission for acute pancreatitis. #1. Acute pancreatitis w/ abdominal pain, nausea without emesis, recurrent: Will admit to medical surgical floor, will maintain on IVFs, NPO, PPI, IV/po pain control, trend lipase, CMP, ethyl alcohol level unremarkable in the ED, FLPrecently performed therefore will defer, given history of gastric ulcer previously will request GI involvement to assure no recurrent ulcer issues as this certainly could contribute to recurrent pancreatitis but again patient doeshave a strong alcohol abuse history although currently EtOH level negative. #2. History of alcohol abuse reportedly sober x 2 months: Patient reporting sober x 2 months, given recurrent pancreatitis strongly encourage continued complete sobriety, EtOH level negative upon presentation, will continue thiamine, folic acid, case management consulted for substance abuse to continue to encourage sobriety and offer resources. #3. Hypertension: Continue home regimen including amlodipine, losartan, PRN hydralazine. Given presentation temporarily holding hydrochlorothiazide. #4. Diabetes mellitus type II with chronic neuropathy: Hold oral home regimen, continue home insulin regimen, n.p.o. status, every 6 hours accu checks w/ ISS, continue patient on gabapentin regimen. #5. History TIA/CVA: We will continue aspirin pending #1 assessment as noted, statin, hypertensive regimen as noted, diabetic regimen with alterations as noted. #6. History of liver fibrosis: History of alcohol abuse, reportedly decreasing his amount as noted above, we will continue patient home chronic ursodiol regimen. #7. Anxiety and depression: We will continue patient home amitriptyline as wellas escitalopram regimen. #8. Hyperlipidemia: We will continue patient home statin therapy. #9. BPH: We will continue patient on Flomax regimen. #10. Seizure disorder: We will continue patient home Keppra regimen. #11. GERD with history GI bleed, gastric ulcer: We will maintain on IV PPI given presentation. #12. Former tobacco use: Encourage continued tobacco cessation. #13. DVT prophylaxis: Given presentation as noted #1 we will defer chemoprophylaxis, SCDs. #14. CODE status: Patient does not have healthcare power of claims attorney nor livingwill in place but if he did need someone to make medical decisions for him if hecould not it would be his sister. Full Code status. Admission Evaluation Time spent evaluating chart, patient history, patient evaluation, care planning and discussion with specialists: 60 minutes. Charges/Coding Visit Charges Inpatient E&M: 07374 Init Hosp L2 11/29/22 0328 <Electronically signed by Mayelin Pedraza MD> Cosigner Signature (if applicable): CC: Dr. Mayelin Pedraza MD; Dr. Lobito Maldonado MD~ Signed [facility] Work Phone: Hospital Discharge instructions Additional Instructions Follow-up with Dr. Santamaria. Return if feeling worse. Plenty of fluids and rest. [facility] Work Phone: Hospital Discharge instructions Additional Instructions Thank you for trusting us with your care today! Please take Tylenol (2 pills, 650 mg), ibuprofen (2 pills, 400 mg) every 6 hours as needed for pain and fever control. Please take oxycodone if the above regimen does not control your pain. Please take Zofran as needed for nausea and vomiting. Please return to the emergency department if your symptoms change or worsen. Specifically develop nausea vomiting if your pain is not controlled with the above pain regimen. Please refrain from drinking alcohol as this will exacerbate your underlying propensity for pancreatitis Please follow with your primary care physician for further outpatient evaluation and management.[facility] Work Phone: Hospital Discharge instructions No data available for this section [facility] Progress note No data available for this section [facility] Reason for referral (narrative)* Diagnostic Procedure Only (Routine) - Closed Specialty Diagnoses / Procedures Referred By Contac t Referred To Contact XR IMAGING Diagnoses Left hip pain Procedures XR HIP GENERAL 3V PELV/AP/LAT LEFT RADEX HIP UNILATERAL WITH PELVIS 2-3 VIEWS Lobito Maldonado MD [address] [place] [address] Xr Imaging Referral ID Status Reason Start Date Expiration Date V isits Requested Visits Authorized [id number] Closed Auto-Generate d Referral 08/19/2022 09/18/2023 1 1 [facility] for referral (narrative)* Outpatient Procedure (Routine) - Authorized Specialty Diagnoses / Procedures Referred By Contac t Referred To Contact [facility] [place] Diagnoses Type 2 diabetes mellitus without complication, with long-term current use of insulin (HCC) Diminished pulses in lower extremity Procedures PVR ANK PRESS KRYSAT VAS LAB NON-INVAS PHYSIOLOGIC STD EXTREMITY ART 2 LEVEL Danilo Benitez [address] [place] [address] [facility] [address] [address] Referral ID Status Reason Start Date Expiration Date Visits Requested Visits Authorized [id number] Authorized Auto-Generat ed Referral 05/19/2023 05/18/2024 1 1 [facility] for referral (narrative)* Outpatient Procedure (Routine) - Additional Clinical Info Needed Specialty Diagnoses / Procedures Referred By Contac t Referred To Contact [facility] [place] Diagnoses Tachycardia Shortness of breath Procedures ECHO ECHO TTHRC R-T 2D W/WOM-MODE COMPL SPEC&COLR D Alis Chua PLANT ELECTRICAL ENGINEER.MATERIALS PLANNER/PRODUCTION PLANNER [address] [place] [address] [facility] [place] [address] [place] [address] Referral ID Status Reason Start Date Expiration Date Visits Requested Visits Authorized [id number] Additional Clinical Info Needed Auto-Generat ed Referral 02/05/2024 02/04/2025 1 1 Electronically signed by Alis Chua PLANT ELECTRICAL ENGINEER.MATERIALS PLANNER/PRODUCTION PLANNER at 02/05/2024 2:09 PM EDT * Outpatient Procedure (Routine) - Pending Review Specialty Diagnoses / Procedures Referred By Contac t Referred To Contact [facility] Diagnoses Tachycardia Procedures ECG COMPLETE ECG ROUTINE ECG W/LEAST 12 LDS W/I&R Alis Chua APRN.CNP [address] [place] [address] [facility] [place] [address] [place] [address] Referral ID Status Reason Start Date Expiration Date Visits Requested Visits Authorized [id number] Pending Review Auto-Generat ed Referral 02/05/2024 02/04/2025 1 1 [facility] for referral (narrative)* Diagnostic Procedure Only (Routine) - Closed Specialty Diagnoses / Procedures Referred By Contac t Referred To Contact XR IMAGING Diagnoses Left hip pain Procedures XR HIP GENERAL 3V PELV/AP/LAT LEFT RADEX HIP UNILATERAL WITH PELVIS 2-3 VIEWS Lobito Maldonado MD [facility] [place] [id number] Xr Imaging [id number] Referral ID Status Reason Start Date Expiration Date V isits Requested Visits Authorized [id number] Closed Auto-Generate d Referral 08/19/2022 09/18/2023 1 1 [facility] for referral (narrative)No reason for referral information [facility] Work Phone: Reason for visit Narrative* Diagnostic Procedure Only (Routine) - Closed Specialty Diagnoses / Procedures Referred By Contac t Referred To Contact XR IMAGING Diagnoses Left hip pain Procedures XR HIP GENERAL 3V PELV/AP/LAT LEFT RADEX HIP UNILATERAL WITH PELVIS 2-3 VIEWS Lobito Maldonado MD [address] [place] [id number] [place] [id number] Referral ID Status Reason Start Date Expiration Date V isits Requested Visits Authorized [id number] Closed Auto-Generate d Referral 08/19/2022 09/18/2023 1 1 [facility] Summary Purpose Family History Relationship Condition Age at Onset Recorded Date/T quinn mother Cardiac disease Unknown sister Cerebral aneurysm Unknown Relationship Condition Age at Onset Recorded Date/T quinn mother Cardiac disease Unknown sister Cerebral aneurysm Unknown father Diabetes mellitus Unknown Kidney disorder Unknown Anxiety and depression Unknown Advance Directives Advance Directive Response Recorded Date/ Time Living Will No February 27, 2022 1 2:23pm Power of System Analyst No February 27, 2022 12:23pm Advance Directive Response Recorded Date/ Time Living Will Yes February 27, 2022 4 :16pm Power of System Analyst No February 27, 2022 4:16pm Advance Directive Response Recorded Date/ Time Living Will No March 06, 2022 10:23pm Power of System Analyst No March 06 10:23pm Advance Directive Response Recorded Date/ Time Living Will No July 04 11:34am Power of System Analyst No July 04, 2022 11:34am Advance Directive Response Recorded Date/ Time Living Will No July 13 1:21am Power of System Analyst No July 13, 2022 1:21am Advance Directive Response Recorded Date/ Time Living Will Yes July 13 6:07am Power of System Analyst No July 13, 2022 6:07am Advance Directive Response Recorded Date/ Time Living Will Yes July 13 5:07am Power of System Analyst No July 13, 2022 5:07am Advance Directive Response Recorded Date/ Time Living Will No September 06 8:50am Power of System Analyst No September 06, 2022 8:50am Advance Directive Response Recorded Date/ Time Living Will No September 06 022 1:12pm Power of System Analyst No September 06, 2022 1:12pm Advance Directive Response Recorded Date/ Time Living Will No October 25 9:55pm Power of System Analyst No October 25, 2022 9:55pm Advance Directive Response Recorded Date/ Time Living Will No November 09 023 4:34pm Power of System Analyst No November 09, 2022 4:34pm Advance Directive Response Recorded Date/ Time Living Will No November 10 023 12:10am Power of System Analyst No November 10, 2022 12:10am Advance Directive Response Recorded Date/ Time Living Will No November 28, 2022 11:08pm Power of System Analyst No November 28 11:08pm Advance Directive Response Recorded Date/ Time Living Will No November 29, 2022 4:18am Power of System Analyst No November 29 4:18am Advance Directive Response Recorded Date/ Time Living Will No December 13, 2022 11:10pm Power of System Analyst No December 13 11:10pm Advance Directive Response Recorded Date/ Time Living Will No December 26, 2022 5:50am Power of System Analyst No December 26 5:50am Advance Directive Response Recorded Date/ Time Living Will No January 21, 2023 2:19pm Power of System Analyst No January 21 2:19pm Advance Directive Response Recorded Date/ Time Living Will No January 22, 2023 12:29am Power of System Analyst No January 22 12:29am Advance Directive Response Recorded Date/ Time Living Will Yes March 10, 2023 6:08pm Power of System Analyst No March 10 6:08pm Advance Directive Response Recorded Date/ Time Living Will No April 30, 2023 4:54am Power of System Analyst No April 30 4:54am Advance Directive Response Recorded Date/ Time Living Will No August 09 023 3:31am Power of System Analyst No August 09, 2023 3:31am Advance Directive Response Recorded Date/ Time Living Will Yes October 10 4:31am Power of System Analyst No October 10, 2023 4:31am Advance Directive Response Recorded Date/ Time Living Will Yes November 07, 024 8:20am Power of System Analyst No November 07, 2023 8:20am Advance Directive Response Recorded Date/ Time Living Will Yes November 20, 024 1:23pm Power of System Analyst No November 20, 2023 1:23pm Advance Directive Response Recorded Date/ Time Living Will No January 07, 2024 2:57am Power of System Analyst No January 06 2:57am Advance Directive Response Recorded Date/ Time Living Will No January 07, 2024 8:33am Power of System Analyst No January 06 8:33am Chief Complaint and Reason for Visit Chief Complaint SUICIDAL, ABDOMINAL PAIN WITH ELEVATED LIPASE SUICIDAL, ABDOMINAL PAIN WITH ELEVATED LIPASE SUICIDAL, ABDOMINAL PAIN WITH ELEVATED LIPASE 4 M FU PANCREATITIS PANCREATITIS Reason for Visit Pancreatitis Essential (primary) hypertension Hyperlipidemia Acute pancreatitis Chief Complaint SUICIDAL, ABDOMINAL PAIN WITH ELEVATED LIPASE SUICIDAL, ABDOMINAL PAIN WITH ELEVATED LIPASE SUICIDAL, ABDOMINAL PAIN WITH ELEVATED LIPASE 4 M FU PANCREATITIS PANCREATITIS PANCREATITIS PANCREATITIS PANCREATITIS PANCREATITIS PANCREATITIS PANCREATITIS PANCREATITIS Reason for Visit Pancreatitis Essential (primary) hypertension Hyperlipidemia Acute pancreatitis Hypophosphatemia Leukocytosis Chief Complaint SUICIDAL, ABDOMINAL PAIN WITH ELEVATED LIPASE SUICIDAL, ABDOMINAL PAIN WITH ELEVATED LIPASE SUICIDAL, ABDOMINAL PAIN WITH ELEVATED LIPASE 4 M FU PANCREATITIS PANCREATITIS PANCREATITIS PANCREATITIS PANCREATITIS PANCREATITIS PANCREATITIS PANCREATITIS PANCREATITIS ABD PAIN Reason for Visit Pancreatitis Essential (primary) hypertension Hyperlipidemia Acute pancreatitis Hypophosphatemia Leukocytosis Chief Complaint SUICIDAL, ABDOMINAL PAIN WITH ELEVATED LIPASE SUICIDAL, ABDOMINAL PAIN WITH ELEVATED LIPASE SUICIDAL, ABDOMINAL PAIN WITH ELEVATED LIPASE 4 M FU PANCREATITIS PANCREATITIS PANCREATITIS PANCREATITIS PANCREATITIS PANCREATITIS PANCREATITIS PANCREATITIS PANCREATITIS ABD PAIN H FU E-ORDER Reason for Visit Pancreatitis Essential (primary) hypertension Hyperlipidemia Acute pancreatitis Hypophosphatemia Leukocytosis Fatty liver Pancreatitis Chief Complaint 4 M FU PANCREATITIS PANCREATITIS PANCREATITIS PANCREATITIS PANCREATITIS PANCREATITIS PANCREATITIS PANCREATITIS PANCREATITIS ABD PAIN H FU E-ORDER PANCREATITIS FATTY LIVER Reason for Visit Essential (primary) hypertension Hyperlipidemia Acute pancreatitis Hypophosphatemia Leukocytosis Fatty liver Pancreatitis Chief Complaint ABD PAIN H FU E-ORDER PANCREATITIS FATTY LIVER 6 WK FU abd pain Reason for Visit Fatty liver Pancreatitis Abdominal pain Chief Complaint H FU E-ORDER PANCREATITIS FATTY LIVER 6 WK FU abd pain ACUTE PANCREATITIS Reason for Visit Fatty liver Pancreatitis Abdominal pain Acute pancreatitis Chief Complaint H FU E-ORDER PANCREATITIS FATTY LIVER 6 WK FU abd pain ACUTE PANCREATITIS ACUTE PANCREATITIS ACUTE PANCREATITIS ACUTE PANCREATITIS ACUTE PANCREATITIS ACUTE PANCREATITIS ACUTE PANCREATITIS Reason for Visit Fatty liver Pancreatitis Abdominal pain Acute pancreatitis Diabetes GERD (gastroesophageal reflux disease) Hyponatremia Pancreatitis Essential (primary) hypertension Chief Complaint 6 WK FU abd pain ACUTE PANCREATITIS ACUTE PANCREATITIS ACUTE PANCREATITIS ACUTE PANCREATITIS ACUTE PANCREATITIS ACUTE PANCREATITIS ACUTE PANCREATITIS Follow up r/s EORDER Reason for Visit Abdominal pain Acute pancreatitis Diabetes GERD (gastroesophageal reflux disease) Hyponatremia Pancreatitis Essential (primary) hypertension Epilepsy Polyneuropathy Chief Complaint 6 WK FU abd pain ACUTE PANCREATITIS ACUTE PANCREATITIS ACUTE PANCREATITIS ACUTE PANCREATITIS ACUTE PANCREATITIS ACUTE PANCREATITIS ACUTE PANCREATITIS Follow up r/s EORDER ACUTE ON REC PANCREATITIS Reason for Visit Abdominal pain Acute pancreatitis Diabetes GERD (gastroesophageal reflux disease) Hyponatremia Pancreatitis Essential (primary) hypertension Epilepsy Polyneuropathy Acute pancreatitis Diabetes Hyperlipidemia Chief Complaint 6 WK FU abd pain ACUTE PANCREATITIS ACUTE PANCREATITIS ACUTE PANCREATITIS ACUTE PANCREATITIS ACUTE PANCREATITIS ACUTE PANCREATITIS ACUTE PANCREATITIS Follow up r/s EORDER ACUTE ON REC PANCREATITIS ACUTE ON REC PANCREATITIS ACUTE ON REC PANCREATITIS ACUTE ON REC PANCREATITIS Reason for Visit Abdominal pain Acute pancreatitis Diabetes GERD (gastroesophageal reflux disease) Hyponatremia Pancreatitis Essential (primary) hypertension Epilepsy Polyneuropathy Acute pancreatitis Diabetes Hyperlipidemia Chief Complaint 6 WK FU abd pain ACUTE PANCREATITIS ACUTE PANCREATITIS ACUTE PANCREATITIS ACUTE PANCREATITIS ACUTE PANCREATITIS ACUTE PANCREATITIS ACUTE PANCREATITIS Follow up r/s EORDER ACUTE ON REC PANCREATITIS ACUTE ON REC PANCREATITIS ACUTE ON REC PANCREATITIS ACUTE ON REC PANCREATITIS ACUTE RE CURRENT PANCREATITIS ACUTE RE CURRENT PANCREATITIS Reason for Visit Abdominal pain GERD (gastroesophageal reflux disease) Hyponatremia Pancreatitis Essential (primary) hypertension Acute pancreatitis Epilepsy Polyneuropathy Acute pancreatitis Acute recurrent pancreatitis Chief Complaint ACUTE PANCREATITIS ACUTE PANCREATITIS ACUTE PANCREATITIS ACUTE PANCREATITIS ACUTE PANCREATITIS ACUTE PANCREATITIS ACUTE PANCREATITIS Follow up r/s EORDER ACUTE ON REC PANCREATITIS ACUTE ON REC PANCREATITIS ACUTE ON REC PANCREATITIS ACUTE ON REC PANCREATITIS ACUTE RE CURRENT PANCREATITIS ACUTE RE CURRENT PANCREATITIS ACUTE RE CURRENT PANCREATITIS abdominal pain Reason for Visit GERD (gastroesophage al reflux disease) Hyponatremia Pancreatitis Essential (primary) hypertension Acute pancreatitis Epilepsy Polyneuropathy Acute pancreatitis Chief Complaint ACUTE PANCREATITIS ACUTE PANCREATITIS ACUTE PANCREATITIS ACUTE PANCREATITIS ACUTE PANCREATITIS ACUTE PANCREATITIS ACUTE PANCREATITIS Follow up r/s EORDER ACUTE ON REC PANCREATITIS ACUTE ON REC PANCREATITIS ACUTE ON REC PANCREATITIS ACUTE ON REC PANCREATITIS ACUTE RE CURRENT PANCREATITIS ACUTE RE CURRENT PANCREATITIS ACUTE RE CURRENT PANCREATITIS abdominal pain ABD PAIN Reason for Visit GERD (gastroesophage al reflux disease) Hyponatremia Pancreatitis Essential (primary) hypertension Acute pancreatitis Epilepsy Polyneuropathy Acute pancreatitis Chief Complaint Follow up r/s EORDER ACUTE ON REC PANCREATITIS ACUTE ON REC PANCREATITIS ACUTE ON REC PANCREATITIS ACUTE ON REC PANCREATITIS ACUTE RE CURRENT PANCREATITIS ACUTE RE CURRENT PANCREATITIS ACUTE RE CURRENT PANCREATITIS abdominal pain ABD PAIN ACUTE RECURRENT PANCREATITIS Reason for Visit Epilepsy Polyneuropathy Acute pancreatitis Abdominal pain Nausea Pancreatitis Chief Complaint Follow up r/s EORDER ACUTE ON REC PANCREATITIS ACUTE ON REC PANCREATITIS ACUTE ON REC PANCREATITIS ACUTE ON REC PANCREATITIS ACUTE RE CURRENT PANCREATITIS ACUTE RE CURRENT PANCREATITIS ACUTE RE CURRENT PANCREATITIS abdominal pain ABD PAIN ACUTE RECURRENT PANCREATITIS ACUTE RECURRENT PANCREATITIS ACUTE RECURRENT PANCREATITIS ACUTE RECURRENT PANCREATITIS ACUTE RECURRENT PANCREATITIS ACUTE RECURRENT PANCREATITIS Reason for Visit Epilepsy Polyneuropathy Acute pancreatitis Abdominal pain Acute pancreatitis Nausea Pancreatitis Chief Complaint ACUTE ON REC PANCREA TITIS ACUTE ON REC PANCREATITIS ACUTE ON REC PANCREATITIS ACUTE ON REC PANCREATITIS ACUTE RE CURRENT PANCREATITIS ACUTE RE CURRENT PANCREATITIS ACUTE RE CURRENT PANCREATITIS abdominal pain ABD PAIN ACUTE RECURRENT PANCREATITIS ACUTE RECURRENT PANCREATITIS ACUTE RECURRENT PANCREATITIS ACUTE RECURRENT PANCREATITIS ACUTE RECURRENT PANCREATITIS ACUTE RECURRENT PANCREATITIS ACUTE RECURRENT PANCREATITIS ACUTE RECURRENT PANCREATITIS cp Reason for Visit Acute pancreatitis Abdominal pain Acute pancreatitis Nausea Pancreatitis Chief Complaint ACUTE ON REC PANCREA TITIS ACUTE ON REC PANCREATITIS ACUTE ON REC PANCREATITIS ACUTE ON REC PANCREATITIS ACUTE RE CURRENT PANCREATITIS ACUTE RE CURRENT PANCREATITIS ACUTE RE CURRENT PANCREATITIS abdominal pain ABD PAIN ACUTE RECURRENT PANCREATITIS ACUTE RECURRENT PANCREATITIS ACUTE RECURRENT PANCREATITIS ACUTE RECURRENT PANCREATITIS ACUTE RECURRENT PANCREATITIS ACUTE RECURRENT PANCREATITIS ACUTE RECURRENT PANCREATITIS ACUTE RECURRENT PANCREATITIS cp 1 YR F/U PCU FU ABD PAIN Reason for Visit Acute pancreatitis Pancreatitis Abdominal pain Acute pancreatitis Nausea Heart palpitations Pancreatitis Chief Complaint ACUTE RE CURRENT ALFORD CREATITIS ACUTE RE CURRENT PANCREATITIS ACUTE RE CURRENT PANCREATITIS abdominal pain ABD PAIN ACUTE RECURRENT PANCREATITIS ACUTE RECURRENT PANCREATITIS ACUTE RECURRENT PANCREATITIS ACUTE RECURRENT PANCREATITIS ACUTE RECURRENT PANCREATITIS ACUTE RECURRENT PANCREATITIS ACUTE RECURRENT PANCREATITIS ACUTE RECURRENT PANCREATITIS cp 1 YR F/U PCU FU ABD PAIN abd pain Reason for Visit Pancreatitis Abdominal pain Acute pancreatitis Nausea Heart palpitations Pancreatitis Chief Complaint ACUTE RE CURRENT ALFORD CREATITIS ACUTE RE CURRENT PANCREATITIS ACUTE RE CURRENT PANCREATITIS abdominal pain ABD PAIN ACUTE RECURRENT PANCREATITIS ACUTE RECURRENT PANCREATITIS ACUTE RECURRENT PANCREATITIS ACUTE RECURRENT PANCREATITIS ACUTE RECURRENT PANCREATITIS ACUTE RECURRENT PANCREATITIS ACUTE RECURRENT PANCREATITIS ACUTE RECURRENT PANCREATITIS cp 1 YR F/U PCU FU ABD PAIN abd pain PANCREATITIS 6 M FU EORDER Reason for Visit Pancreatitis Abdominal pain Acute pancreatitis Nausea Heart palpitations Pancreatitis Epilepsy Polyneuropathy Chief Complaint ACUTE RECURRENT PANC REATITIS ACUTE RECURRENT PANCREATITIS ACUTE RECURRENT PANCREATITIS ACUTE RECURRENT PANCREATITIS ACUTE RECURRENT PANCREATITIS ACUTE RECURRENT PANCREATITIS ACUTE RECURRENT PANCREATITIS ACUTE RECURRENT PANCREATITIS cp 1 YR F/U PCU FU ABD PAIN abd pain PANCREATITIS 6 M FU EORDER abd pain Reason for Visit Pancreatitis Abdominal pain Acute pancreatitis Nausea Heart palpitations Pancreatitis Epilepsy Polyneuropathy Chief Complaint abd pain PANCREATITIS 6 M FU EORDER abd pain 4 M FU PANCREATITIS Reason for Visit Epilepsy Polyneuropathy Pancreatitis Chief Complaint 4 M FU PANCREATITIS ABDOMINAL PAIN ABDOMINAL PAIN pancreatitis Reason for Visit Pancreatitis Chief Complaint pancreatitis 5 MO FU abd pain Reason for Visit Pancreatitis Chief Complaint pancreatitis 5 MO FU abd pain FOLLOW UP abd pain Reason for Visit Pancreatitis Hyperammonemia Epilepsy Polyneuropathy Chief Complaint 5 MO FU abd pain FOLLOW UP abd pain ABD PAIN EORDER Reason for Visit Pancreatitis Hyperammonemia Epilepsy Polyneuropathy Chief Complaint 5 MO FU abd pain FOLLOW UP abd pain ABD PAIN EORDER PANCREATITIS Reason for Visit Pancreatitis Hyperammonemia Epilepsy Polyneuropathy Alcohol abuse Hyponatremia Acute on chronic pancreatitis Essential (primary) hypertension Chief Complaint 5 MO FU abd pain FOLLOW UP abd pain ABD PAIN EORDER PANCREATITIS PANCREATITIS PANCREATITIS Reason for Visit Pancreatitis Hyperammonemia Epilepsy Polyneuropathy Alcohol abuse Hyponatremia Acute on chronic pancreatitis Essential (primary) hypertension Chief Complaint Admit Date FOLLOW UP February 13, 2025 1:37p m E-ORDER February 13, 2025 2:00p m Reason for Visit Admit Date Epilepsy February 13, 2025 1:37p m Hyperammonemia February 13, 2025 1:37p m Reason for Referral Specialty Diagnoses / Procedures Referred By Susie corrales Referred To Contact Optometry Diagnoses Type 2 diabetes mellitus without complication, with long-term current use of insulin (HCC) Procedures CONSULT TO OPTOMETRY OFFICE/OUTPATIENT [facility] HIGH MDM 60-74 MINUTES Lobito Maldonado MD [address] [place] [address] Referral ID Status Reason Start Date Expiration Date Visits Requested Visits Authorized [id number] Authorized PCP Requested Referral 02/06/2023 02/06/2024 1 1 Medications Administered Section Active Administered Medications - up to 3 most recent administrations Medication Order MAR Action Action Date Dose Rate Site PHENYLephrine 2.5 % 1 Drop (AK-DILATE, CRUZ-SYNEPHRINE) 1 Drop, BOTH EYES, DIRECTED, Starting on Mon02/21/23 at 1000, Until Tu02/21/23 at 2159, Administer for dilation PROTECT FROM LIGHT Given 02/21/2023 10:00 AM EDT 1 Drop proparacaine 0.5 % 1 Drop (ALCAINE) 1 Drop, BOTH EYES, DIRECTED, Starting on Mon02/21/23 at 1000, Until Tu02/21/23 at 2159, Administer for pneumo tonometry, tonopen tonometry, or pachymetry. In the event of a proparacaine shortage, administer tetracaine 0.5% ophthalmic drops 1 drop in the left eye as directed for pneumo tonometry, tonopen tonometry, or pachymetry Given 02/21/2023 10:00 AM EDT 1 Drop tropicamide 1 % 1 Drop (MYDRIACYL) 1 Drop, BOTH EYES, DIRECTED, Starting on Mon02/21/23 at 1000, Until Mon02/21/23 at 2159, Administer for dilation Given 02/21/2023 10:00 AM EDT 1 Drop Additional Source Comments (unrecognized sect ion and content) No Status Records FoundNo Status Records FoundNo Status Records FoundNo Status Records FoundNo Status Records FoundNo Status Records Found INFORMATION SOURCE (unrecogn ized section and content) DATE CREATED AUTHOR 04/12/2018 [facility] DATE CREATED AUTHOR AUTHOR'S ORGANIZ ATION 11/27/2019 [facility] DATE CREATED AUTHOR AUTHOR'S ORGANIZ ATION 12/24/2021 [facility] DATE CREATED AUTHOR AUTHOR'S ORGANIZ ATION 05/23/2022 [facility] DATE CREATED AUTHOR AUTHOR'S ORGANIZ ATION 01/19/2024 [facility] ([place] DATE CREATED AUTHOR AUTHOR'S ORGANIZ ATION 02/19/2025 [facility] DATE CREATED AUTHOR AUTHOR'S ORGANIZ ATION 02/20/2025 [facility] Source Comments (unrecognize d section and content) In the event this informatio n is protected by the Federal Confidentiality of Alcohol and Drug Abuse Patient Records regulations: The Federal rules restrict any use of the information to criminally investigate or prosecute any alcohol or drug abuse patient.[facility] the event this information is protected by the Federal Confidentiality of Alcohol and Drug Abuse Patient Records regulations: The Federal rules restrict any use of the information to criminally investigate or prosecute any alcohol or drug abuse patient.[facility] HospitalIn the event this information is protected by the Federal Confidentiality of Alcohol and Drug Abuse Patient Records regulations: The Federal rules restrict any use of the information to criminally investigate or prosecute any alcohol or drug abuse patient.[facility] HospitalIn the event this information is protected by the Federal Confidentiality of Alcohol and Drug Abuse Patient Records regulations: The Federal rules restrict any use of the information to criminally investigate or prosecute any alcohol or drug abuse patient.[facility] HospitalIn the event this information is protected by the Federal Confidentiality of Alcohol and Drug Abuse Patient Records regulations: The Federal rules restrict any use of the information to criminally investigate or prosecute any alcohol or drug abuse patient.[facility] HospitalIn the event this information is protected by the Federal Confidentiality of Alcohol and Drug Abuse Patient Records regulations: The Federal rules restrict any use of the information to criminally investigate or prosecute any alcohol or drug abuse patient.[facility] HospitalIn the event this information is protected by the Federal Confidentiality of Alcohol and Drug Abuse Patient Records regulations: The Federal rules restrict any use of the information to criminally investigate or prosecute any alcohol or drug abuse patient.[facility] HospitalIn the event this information is protected by the Federal Confidentiality of Alcohol and Drug Abuse Patient Records regulations: The Federal rules restrict any use of the information to criminally investigate or prosecute any alcohol or drug abuse patient.[facility] HospitalIn the event this information is protected by the Federal Confidentiality of Alcohol and Drug Abuse Patient Records regulations: The Federal rules restrict any use of the information to criminally investigate or prosecute any alcohol or drug abuse patient.[facility] HospitalIn the event this information is protected by the Federal Confidentiality of Alcohol and Drug Abuse Patient Records regulations: The Federal rules restrict any use of the information to criminally investigate or prosecute any alcohol or drug abuse patient.[facility] HospitalIn the event this information is protected by the Federal Confidentiality of Alcohol and Drug Abuse Patient Records regulations: The Federal rules restrict any use of the information to criminally investigate or prosecute any alcohol or drug abuse patient.[facility] HospitalIn the event this information is protected by the Federal Confidentiality of Alcohol and Drug Abuse Patient Records regulations: The Federal rules restrict any use of the information to criminally investigate or prosecute any alcohol or drug abuse patient.[facility] HospitalIn the event this information is protected by the Federal Confidentiality of Alcohol and Drug Abuse Patient Records regulations: The Federal rules restrict any use of the information to criminally investigate or prosecute any alcohol or drug abuse patient.[facility] HospitalIn the event this information is protected by the Federal Confidentiality of Alcohol and Drug Abuse Patient Records regulations: The Federal rules restrict any use of the information to criminally investigate or prosecute any alcohol or drug abuse patient.[facility] HospitalIn the event this information is protected by the Federal Confidentiality of Alcohol and Drug Abuse Patient Records regulations: The Federal rules restrict any use of the information to criminally investigate or prosecute any alcohol or drug abuse patient.[facility] HospitalIn the event this information is protected by the Federal Confidentiality of Alcohol and Drug Abuse Patient Records regulations: The Federal rules restrict any use of the information to criminally investigate or prosecute any alcohol or drug abuse patient.[facility] HospitalIn the event this information is protected by the Federal Confidentiality of Alcohol and Drug Abuse Patient Records regulations: The Federal rules restrict any use of the information to criminally investigate or prosecute any alcohol or drug abuse patient.[facility] HospitalIn the event this information is protected by the Federal Confidentiality of Alcohol and Drug Abuse Patient Records regulations: The Federal rules restrict any use of the information to criminally investigate or prosecute any alcohol or drug abuse patient.[facility] HospitalIn the event this information is protected by the Federal Confidentiality of Alcohol and Drug Abuse Patient Records regulations: The Federal rules restrict any use of the information to criminally investigate or prosecute any alcohol or drug abuse patient.[facility] HospitalIn the event this information is protected by the Federal Confidentiality of Alcohol and Drug Abuse Patient Records regulations: The Federal rules restrict any use of the information to criminally investigate or prosecute any alcohol or drug abuse patient.[facility] HospitalIn the event this information is protected by the Federal Confidentiality of Alcohol and Drug Abuse Patient Records regulations: The Federal rules restrict any use of the information to criminally investigate or prosecute any alcohol or drug abuse patient.[facility] HospitalIn the event this information is protected by the Federal Confidentiality of Alcohol and Drug Abuse Patient Records regulations: The Federal rules restrict any use of the information to criminally investigate or prosecute any alcohol or drug abuse patient.[facility] HospitalIn the event this information is protected by the Federal Confidentiality of Alcohol and Drug Abuse Patient Records regulations: The Federal rules restrict any use of the information to criminally investigate or prosecute any alcohol or drug abuse patient.[facility] HospitalIn the event this information is protected by the Federal Confidentiality of Alcohol and Drug Abuse Patient Records regulations: The Federal rules restrict any use of the information to criminally investigate or prosecute any alcohol or drug abuse patient.[facility] HospitalIn the event this information is protected by the Federal Confidentiality of Alcohol and Drug Abuse Patient Records regulations: The Federal rules restrict any use of the information to criminally investigate or prosecute any alcohol or drug abuse patient.[facility] HospitalIn the event this information is protected by the Federal Confidentiality of Alcohol and Drug Abuse Patient Records regulations: The Federal rules restrict any use of the information to criminally investigate or prosecute any alcohol or drug abuse patient.[facility] HospitalIn the event this information is protected by the Federal Confidentiality of Alcohol and Drug Abuse Patient Records regulations: The Federal rules restrict any use of the information to criminally investigate or prosecute any alcohol or drug abuse patient.[facility] HospitalIn the event this information is protected by the Federal Confidentiality of Alcohol and Drug Abuse Patient Records regulations: The Federal rules restrict any use of the information to criminally investigate or prosecute any alcohol or drug abuse patient.[facility] HospitalIn the event this information is protected by the Federal Confidentiality of Alcohol and Drug Abuse Patient Records regulations: The Federal rules restrict any use of the information to criminally investigate or prosecute any alcohol or drug abuse patient.[facility] HospitalIn the event this information is protected by the Federal Confidentiality of Alcohol and Drug Abuse Patient Records regulations: The Federal rules restrict any use of the information to criminally investigate or prosecute any alcohol or drug abuse patient.[facility] HospitalIn the event this information is protected by the Federal Confidentiality of Alcohol and Drug Abuse Patient Records regulations: The Federal rules restrict any use of the information to criminally investigate or prosecute any alcohol or drug abuse patient.[facility] HospitalIn the event this information is protected by the Federal Confidentiality of Alcohol and Drug Abuse Patient Records regulations: The Federal rules restrict any use of the information to criminally investigate or prosecute any alcohol or drug abuse patient.[facility] HospitalIn the event this information is protected by the Federal Confidentiality of Alcohol and Drug Abuse Patient Records regulations: The Federal rules restrict any use of the information to criminally investigate or prosecute any alcohol or drug abuse patient.[facility] HospitalIn the event this information is protected by the Federal Confidentiality of Alcohol and Drug Abuse Patient Records regulations: The Federal rules restrict any use of the information to criminally investigate or prosecute any alcohol or drug abuse patient.[facility] HospitalIn the event this information is protected by the Federal Confidentiality of Alcohol and Drug Abuse Patient Records regulations: The Federal rules restrict any use of the information to criminally investigate or prosecute any alcohol or drug abuse patient.[facility] HospitalIn the event this information is protected by the Federal Confidentiality of Alcohol and Drug Abuse Patient Records regulations: The Federal rules restrict any use of the information to criminally investigate or prosecute any alcohol or drug abuse patient.[facility] HospitalIn the event this information is protected by the Federal Confidentiality of Alcohol and Drug Abuse Patient Records regulations: The Federal rules restrict any use of the information to criminally investigate or prosecute any alcohol or drug abuse patient.[facility] HospitalIn the event this information is protected by the Federal Confidentiality of Alcohol and Drug Abuse Patient Records regulations: The Federal rules restrict any use of the information to criminally investigate or prosecute any alcohol or drug abuse patient.[facility] HospitalIn the event this information is protected by the Federal Confidentiality of Alcohol and Drug Abuse Patient Records regulations: The Federal rules restrict any use of the information to criminally investigate or prosecute any alcohol or drug abuse patient.[facility] HospitalIn the event this information is protected by the Federal Confidentiality of Alcohol and Drug Abuse Patient Records regulations: The Federal rules restrict any use of the information to criminally investigate or prosecute any alcohol or drug abuse patient.[facility] HospitalIn the event this information is protected by the Federal Confidentiality of Alcohol and Drug Abuse Patient Records regulations: The Federal rules restrict any use of the information to criminally investigate or prosecute any alcohol or drug abuse patient.[facility] HospitalIn the event this information is protected by the Federal Confidentiality of Alcohol and Drug Abuse Patient Records regulations: The Federal rules restrict any use of the information to criminally investigate or prosecute any alcohol or drug abuse patient.[facility] HospitalIn the event this information is protected by the Federal Confidentiality of Alcohol and Drug Abuse Patient Records regulations: The Federal rules restrict any use of the information to criminally investigate or prosecute any alcohol or drug abuse patient.[facility] HospitalIn the event this information is protected by the Federal Confidentiality of Alcohol and Drug Abuse Patient Records regulations: The Federal rules restrict any use of the information to criminally investigate or prosecute any alcohol or drug abuse patient.[facility] HospitalIn the event this information is protected by the Federal Confidentiality of Alcohol and Drug Abuse Patient Records regulations: The Federal rules restrict any use of the information to criminally investigate or prosecute any alcohol or drug abuse patient.[facility] HospitalIn the event this information is protected by the Federal Confidentiality of Alcohol and Drug Abuse Patient Records regulations: The Federal rules restrict any use of the information to criminally investigate or prosecute any alcohol or drug abuse patient.[facility] HospitalIn the event this information is protected by the Federal Confidentiality of Alcohol and Drug Abuse Patient Records regulations: The Federal rules restrict any use of the information to criminally investigate or prosecute any alcohol or drug abuse patient.[facility] HospitalIn the event this information is protected by the Federal Confidentiality of Alcohol and Drug Abuse Patient Records regulations: The Federal rules restrict any use of the information to criminally investigate or prosecute any alcohol or drug abuse patient.[facility] HospitalIn the event this information is protected by the Federal Confidentiality of Alcohol and Drug Abuse Patient Records regulations: The Federal rules restrict any use of the information to criminally investigate or prosecute any alcohol or drug abuse patient.[facility] HospitalIn the event this information is protected by the Federal Confidentiality of Alcohol and Drug Abuse Patient Records regulations: The Federal rules restrict any use of the information to criminally investigate or prosecute any alcohol or drug abuse patient.[facility] HospitalIn the event this information is protected by the Federal Confidentiality of Alcohol and Drug Abuse Patient Records regulations: The Federal rules restrict any use of the information to criminally investigate or prosecute any alcohol or drug abuse patient.[facility] HospitalIn the event this information is protected by the Federal Confidentiality of Alcohol and Drug Abuse Patient Records regulations: The Federal rules restrict any use of the information to criminally investigate or prosecute any alcohol or drug abuse patient.[facility] HospitalIn the event this information is protected by the Federal Confidentiality of Alcohol and Drug Abuse Patient Records regulations: The Federal rules restrict any use of the information to criminally investigate or prosecute any alcohol or drug abuse patient.[facility] HospitalIn the event this information is protected by the Federal Confidentiality of Alcohol and Drug Abuse Patient Records regulations: The Federal rules restrict any use of the information to criminally investigate or prosecute any alcohol or drug abuse patient.[facility] HospitalIn the event this information is protected by the Federal Confidentiality of Alcohol and Drug Abuse Patient Records regulations: The Federal rules restrict any use of the information to criminally investigate or prosecute any alcohol or drug abuse patient.[facility] HospitalIn the event this information is protected by the Federal Confidentiality of Alcohol and Drug Abuse Patient Records regulations: The Federal rules restrict any use of the information to criminally investigate or prosecute any alcohol or drug abuse patient.[facility] HospitalIn the event this information is protected by the Federal Confidentiality of Alcohol and Drug Abuse Patient Records regulations: The Federal rules restrict any use of the information to criminally investigate or prosecute any alcohol or drug abuse patient.[facility] HospitalIn the event this information is protected by the Federal Confidentiality of Alcohol and Drug Abuse Patient Records regulations: The Federal rules restrict any use of the information to criminally investigate or prosecute any alcohol or drug abuse patient.[facility] HospitalIn the event this information is protected by the Federal Confidentiality of Alcohol and Drug Abuse Patient Records regulations: The Federal rules restrict any use of the information to criminally investigate or prosecute any alcohol or drug abuse patient.[facility] HospitalIn the event this information is protected by the Federal Confidentiality of Alcohol and Drug Abuse Patient Records regulations: The Federal rules restrict any use of the information to criminally investigate or prosecute any alcohol or drug abuse patient.[facility] HospitalIn the event this information is protected by the Federal Confidentiality of Alcohol and Drug Abuse Patient Records regulations: The Federal rules restrict any use of the information to criminally investigate or prosecute any alcohol or drug abuse patient.[facility] HospitalIn the event this information is protected by the Federal Confidentiality of Alcohol and Drug Abuse Patient Records regulations: The Federal rules restrict any use of the information to criminally investigate or prosecute any alcohol or drug abuse patient.[facility] HospitalIn the event this information is protected by the Federal Confidentiality of Alcohol and Drug Abuse Patient Records regulations: The Federal rules restrict any use of the information to criminally investigate or prosecute any alcohol or drug abuse patient.[facility] HospitalIn the event this information is protected by the Federal Confidentiality of Alcohol and Drug Abuse Patient Records regulations: The Federal rules restrict any use of the information to criminally investigate or prosecute any alcohol or drug abuse patient.[facility] HospitalIn the event this information is protected by the Federal Confidentiality of Alcohol and Drug Abuse Patient Records regulations: The Federal rules restrict any use of the information to criminally investigate or prosecute any alcohol or drug abuse patient.[facility] HospitalIn the event this information is protected by the Federal Confidentiality of Alcohol and Drug Abuse Patient Records regulations: The Federal rules restrict any use of the information to criminally investigate or prosecute any alcohol or drug abuse patient.[facility] HospitalIn the event this information is protected by the Federal Confidentiality of Alcohol and Drug Abuse Patient Records regulations: The Federal rules restrict any use of the information to criminally investigate or prosecute any alcohol or drug abuse patient.[facility] HospitalIn the event this information is protected by the Federal Confidentiality of Alcohol and Drug Abuse Patient Records regulations: The Federal rules restrict any use of the information to criminally investigate or prosecute any alcohol or drug abuse patient.[facility] HospitalIn the event this information is protected by the Federal Confidentiality of Alcohol and Drug Abuse Patient Records regulations: The Federal rules restrict any use of the information to criminally investigate or prosecute any alcohol or drug abuse patient.[facility] HospitalIn the event this information is protected by the Federal Confidentiality of Alcohol and Drug Abuse Patient Records regulations: The Federal rules restrict any use of the information to criminally investigate or prosecute any alcohol or drug abuse patient.[facility] HospitalIn the event this information is protected by the Federal Confidentiality of Alcohol and Drug Abuse Patient Records regulations: The Federal rules restrict any use of the information to criminally investigate or prosecute any alcohol or drug abuse patient.[facility] HospitalIn the event this information is protected by the Federal Confidentiality of Alcohol and Drug Abuse Patient Records regulations: The Federal rules restrict any use of the information to criminally investigate or prosecute any alcohol or drug abuse patient.[facility] HospitalIn the event this information is protected by the Federal Confidentiality of Alcohol and Drug Abuse Patient Records regulations: The Federal rules restrict any use of the information to criminally investigate or prosecute any alcohol or drug abuse patient.[facility] HospitalIn the event this information is protected by the Federal Confidentiality of Alcohol and Drug Abuse Patient Records regulations: The Federal rules restrict any use of the information to criminally investigate or prosecute any alcohol or drug abuse patient.[facility] HospitalIn the event this information is protected by the Federal Confidentiality of Alcohol and Drug Abuse Patient Records regulations: The Federal rules restrict any use of the information to criminally investigate or prosecute any alcohol or drug abuse patient.[facility] Reason for Visit (unrecogniz ed section and content) Reason Comments Refill Request Reason Onset Date Comments Refill Request 03/09/2022 Reason Comments Hospital F/U pancreatitis Establish Care from Family Practice Reason Comments Consult Initial [facility] Pt Outr each Reason Onset [...] chills , congestion x3 days Reason Comments [facility] ER visit Reason Onset Date Comments Refill Request 01/16/2023 Reason Comments Diabetes Blood sugar: 146A1c: 10.9 Specialty Diagnoses / Procedures Referred By Susie corrales Referred To Contact Optometry Diagnoses Type 2 diabetes mellitus without complication, with long-term current use of insulin (HCC) Procedures CONSULT TO OPTOMETRY OFFICE/OUTPATIENT NEW HIGH MDM 60-74 [place] [address] [place], [place] [id number] Referral ID Status Reason Start Date Expiration Date V isits Requested Visits Authorized [id number] Closed PCP Requested Referral 02/06/2023 02/06/2024 1 1 Reason Onset Date Comments Refill Request 05/01/2023 Reason Comments New Nail Check Specialty Diagnoses / Procedures Referred By Susie corrales Referred To Contact Podiatry Diagnoses Type 2 diabetes mellitus without complication, with long-term current use of insulin ([facility]) Dermatophytosis, nail Procedures CONSULT TO PODIATRY OFFICE/OUTPATIENT NEW HIGH MDM 60-74 MINUTES Lobito Maldonado MD [address] [place] [address] Referral ID Status Reason Start Date Expiration Date V isits Requested Visits Authorized [id number] Closed PCP Requested Referral 05/04/2023 05/03/2024 1 1 Reason Comments 2 month follow up - blood sugar Reason Onset Date Comments Refill Request 08/21/2023 Reason Onset Date Comments Refill Request 08/29/2023 Reason Comments Patient Update Orders Reason Comments Imm/Inj Reason Onset Date Comments Transition Of Care 01/10/2024 Reason Comments Diabetic Eye Exam Type 2 IDDM Primary Open Angle Glaucoma Reason Comments Appointment Reason Comments Medicare Wellness Exam Reason Onset Date Comments Refill Request 02/02/2024 Reason Onset Date Comments Refill Request 02/09/2024 Reason Onset Date Comments Refill Request 03/01/2024 Reason Onset Date Comments Refill Request 03/06/2024 Reason Onset Date Comments Refill Request 03/29/2024 Reason Onset Date Comments Refill Request 04/19/2024 Reason Onset Date Comments Refill Request 05/24/2024 Reason Onset Date Comments Refill Request 06/21/2024 Reason Onset Date Comments Refill Request 07/05/2024 Reason Comments Primary Open Angle Glaucoma Follow Up Reason Onset Date Comments Refill Request 08/16/2024 Reason Onset Date Comments Refill Request 09/11/2024 Reason Onset Date Comments Refill Request 10/10/2024 Reason Comments F/U 3 Month Reason Onset Date Comments Refill Request 10/28/2024 Reason Onset Date Comments Refill Request 11/07/2024 Reason Onset Date Comments Refill Request 01/28/2025 Reason Onset Date Comments Refill Request 02/14/2025 Care Teams (unrecognized sec tion and content) Block Layer Relationship Specialty Start Date End Date Souleymane Elliott, PLANT ELECTRICAL ENGINEER.EVA, DNP [address] [facility] [place] [address] PCP - General Family Practice 12/01/20 Heather Kelley CNP [address] [place] [address] Referring Neurology 04/06/18 Block Layer Relationship Specialty Start Date End Date Souleymane Elliott, PLANT ELECTRICAL ENGINEER.EVA, DNP [address] [facility] [place] [address] PCP - General Family Practice 12/01/20 Heather Kelley CNP [address] [place] [address] Referring Neurology 04/06/18 Block Layer Relationship Specialty Start Date End Date Souleymane Elliott, PLANT ELECTRICAL ENGINEER.EVA, DNP [address] [facility] [place] [address] PCP - General Family Practice 12/01/20 Heather Kelley CNP [address] [place] [address] Referring Neurology 04/06/18 Block Layer Relationship Specialty Start Date End Date Souleymane Elliott APRN.MATERIALS PLANNER/PRODUCTION PLANNER, DNP [address] [facility] [place] [address] PCP - General Family Practice 12/01/20 Heather Kelley CNP [address] [place] [address] Referring Neurology 04/06/18 Block Layer Relationship Specialty Start Date End Date Lobito Maldonado MD [address] [facility] [address] PCP - General Internal Medicine 03/10/22 Heather Kelley CNP [address] [place] [address] Referring Neurology 04/06/18 Block Layer Relationship Specialty Start Date End Date Lobito Maldonado MD [address] [facility] [place] [address] PCP - General Internal Medicine 03/10/22 Heather Kelley CNP [address] [place] [address] Referring Neurology 04/06/18 Block Layer Relationship Specialty Start Date End Date Lobito Maldonado MD [address] [facility] [place] [address] PCP - General Internal Medicine 03/10/22 Heather Kelley CNP [address] [place] [address] Referring Neurology 04/06/18 Block Layer Relationship Specialty Start Date End Date Lobito Maldonado MD [address] [place] [address] PCP - General Internal Medicine 03/10/22 Heather Kelley, MATERIALS PLANNER/PRODUCTION PLANNER [address] [place] [address] Referring Neurology 04/06/18 Block Layer Relationship Specialty Start Date End Date Lobiot Maldonado MD [address] [place] [address] PCP - General Internal Medicine 03/10/22 Heather Kelley, MATERIALS PLANNER/PRODUCTION PLANNER [address] [place] [address] Referring Neurology 04/06/18 Block Layer Relationship Specialty Start Date End Date Lobito Maldonado MD [address] [place] [address] PCP - General Internal Medicine 03/10/22 Heather Kelley, MATERIALS PLANNER/PRODUCTION PLANNER [address] [place] [address] Referring Neurology 04/06/18 Block Layer Relationship Specialty Start Date End Date Lobito Maldonado MD [address] [place] [address] PCP - General Internal Medicine 03/10/22 Heather Kelley, MATERIALS PLANNER/PRODUCTION PLANNER [address] [place] [address] Referring Neurology 04/06/18 Block Layer Relationship Specialty Start Date End Date Lobito Maldonado MD [address] [place] [address] PCP - General Internal Medicine 03/10/22 Heather Kelley, MATERIALS PLANNER/PRODUCTION PLANNER [address] [place] [address] Referring Neurology 04/06/18 Block Layer Relationship Specialty Start Date End Date Lobito Maldonado MD [address] [facility] [place] [address] PCP - General Internal Medicine 03/10/22 Heather Kelley, MATERIALS PLANNER/PRODUCTION PLANNER [address] [place] [address] Referring Neurology 04/06/18 Block Layer Relationship Specialty Start Date End Date Souleymane Elliott APRN.MATERIALS PLANNER/PRODUCTION PLANNER, DNP [address] [facility] [place] [address] PCP - General Family Medicine 12/01/20 03/09/22 Lobito Maldonado MD [address] [facility] [place] [address] PCP - General Internal Medicine 03/10/22 Heather Kelley, MATERIALS PLANNER/PRODUCTION PLANNER [address] [place] [address] Referring Neurology 04/06/18 Team Status: Active Member Role Status Dates [facility] Family Provider Active Dr. Lobito Maldonado MD Primary Care Provider Active Team Status: Inactive Member Role Status Dates Savannah Blanton FIRE MANAGER, FIRE MANAGER-C Attending Provider Active Dr. Lobito Maldonado MD Primary Care Provider, Refer ring Provider Active Team Status: Inactive Member Role Status Dates Dr. Lobito Maldonado MD Primary Care Provider, Refer ring Provider Active Dr. Antony Burnett MD Attending Provider Active Team Status: Active Member Role Status Dates Dr. Lobito Maldonado MD Primary Care Provider Active Dr. Phillip Aguiar DO Emergency Provider Active Dr. Lazaro Chin MD Admit Provider, Attending Provider, Other Provider Active Team Status: Active Member Role Status Dates Dr. Lobito Maldonado MD Primary Care Provider Active Dr. Phillip Aguiar DO Emergency Provider Active Dr. Lazaro Chin MD Admit Provider, Other Provide r Active Dr. Roxana Cox MD Attending Provider, Other Provid er Active Team Status: Active Member Role Status Dates Dr. Lobito Maldonado MD Primary Care Provider Active Dr. Phillip Aguiar DO Emergency Provider Active Dr. Lazaro Chin MD Admit Provider, Other Provide r Active Dr. Mia Carr MD Attending Provider, Other Provider Active Dr. Roxana Cox MD Other Provider Active Team Status: Active Member Role Status Dates Dr. Lobito Maldonado MD Primary Care Provider Active Alejandro Gandhi MD Emergency Provider Active Dr. John Paul Araujo MD Admit Provider, A ttending Provider, Other Provider Active Team Status: Active Member Role Status Dates Dr. Lobito Maldonado MD Primary Care Provider Active Dr. Yahir Arteaga DO Emergency Provider Active Dr. Mia Carr MD Admit Provider, Atte nding Provider, Other Provider Active Team Status: Inactive Member Role Status Dates Dr. Lobito Maldondao MD Primary Care Provider Active Alejandro Gandhi MD Attending Provider, Emergency Provid er Active Team Status: Inactive Member Role Status Dates Dr. Lobito Maldonado MD Primary Care Provider Active Dr. Phillip Aguiar DO Emergency Provider Active Dr. Lazaro Chin MD Admit Provider, Other Provide r Active Dr. Mia Carr MD Attending Provider Active Dr. Roxana Cox MD Other Provider Active Team Status: Inactive Member Role Status Dates Dr. Lobito Maldonado MD Primary Care Provider Active Dr. Antony Burnett MD Attending Provider, Referring Provider Active Team Status: Inactive Member Role Status Dates Dr. Lobito Maldonado MD Primary Care Provider Active Alejandro Gandhi MD Emergency Provider Active Dr. John Paul Araujo MD Admit Provider, Attending Provi marion Active Team Status: Active Member Role Status Dates Dr. Lobito Maldonado MD Primary Care Provider Active Dr. Yahir Arteaga DO Emergency Provider Active Dr. Mia Carr MD Admit Provider, Attending Provider Active Block Layer Relationship Specialty Start Date End Date Lobito Maldonado MD [address] [place] [address] PCP - General Internal Medicine 03/10/22 Heather Kelley, MATERIALS PLANNER/PRODUCTION PLANNER [address] [place] [address] Referring Neurology 04/06/18 Team Status: Active Member Role Status Dates Dr. Lobito Maldonado MD Primary Care Provider Active Dr. Yahir Arteaga DO Emergency Provider Active Dr. Mia Carr MD Admit Provider, Other Provider Act carlos Dr. Dillon Harrell MD Attending Provider, Other Provider Active Team Status: Inactive Member Role Status Dates Dr. Lobito Maldonado MD Primary Care Provider Active Dr. Yahir Arteaga DO Emergency Provider Active Dr. Mia Carr MD Admit Provider, Other Provider Act carlos Dr. Dillon Harrell MD Attending Provider Active Team Status: Inactive Member Role Status Dates Dr. Lobito Maldonado MD Primary Care Provider Active Dr. Magno Mora MD Emergency Provider Active Team Status: Inactive Member Role Status Dates Dr. Lobito Maldonado MD Primary Care Provider Active Alejandro Gandhi MD Emergency Provider Active Team Status: Inactive Member Role Status Dates Dr. Lobito Maldonado MD Primary Care Provider Active Dr. Magno Mora MD Attending Provider, Emergency Provider Active Team Status: Active Member Role Status Dates Dr. Lobito Maldonado MD Primary Care Provider Active Dr. Magno Mora MD Emergency Provider Active Dr. Mayelin Pedraza MD Admit Provider, Attending Prov ider Active Team Status: Active Member Role Status Dates Dr. Lobito Maldonado MD Primary Care Provider Active Dr. Magno Mora MD Emergency Provider Active Dr. Mayelin Pedraza MD Admit Provider, Other Provider Active Dr. Veena Tidwell MD Other Provider Active Dr. Taras Santamaria DO Attending Provider Active Team Status: Active Member Role Status Dates Dr. Lobito Maldonado MD Primary Care Provider Active Dr. Magno Mora MD Emergency Provider Active Dr. Mayelin Pedraza MD Admit Provider, Other Provider Active Dr. Veena Tidwell MD Attending Provider, Other Prov ider Active Team Status: Inactive Member Role Status Dates Dr. Lobito Maldonado MD Primary Care Provider Active Dr. Magno Mora MD Emergency Provider Active Dr. Mayelin Pedraza MD Admit Provider, Other Provider Active Dr. Veena Tidwell MD Attending Provider Active Block Layer Relationship Specialty Start Date End Date Lobito Maldonado MD [address] [facility] [address] PCP - General Internal Medicine 03/10/22 Cy Kelleya S, MATERIALS PLANNER/PRODUCTION PLANNER [address] [place] [address] Referring Neurology 04/06/18 Block Layer Relationship Specialty Start Date End Date Lobito Maldonado MD [address] [facility] [address] PCP - General Internal Medicine 03/10/22 Cy Kelleya S, MATERIALS PLANNER/PRODUCTION PLANNER [address] [facility] [place] [address] Referring Neurology 04/06/18 Team Status: Inactive Member Role Status Dates Dr. Lobito Maldonado MD Primary Care Provider Active Dr. Saurabh Cherry MD Emergency Provider Active Block Layer Relationship Specialty Start Date End Date Lobito Maldonado MD [address] [facility] [address] PCP - General Internal Medicine 03/10/22 Heather Kelley S, MATERIALS PLANNER/PRODUCTION PLANNER [address] [place] [address] Referring Neurology 04/06/18 Team Status: Inactive Member Role Status Dates Dr. Lobito Maldonado MD Primary Care Provider, Refer ring Provider Active Dr. Taras Santamaria DO Attending Provider Active Team Status: Inactive Member Role Status Dates Dr. Lobito Maldonado MD Primary Care Provider, Refer ring Provider Active Dr. Des Corrales MD Attending Provider Active Team Status: Inactive Member Role Status Dates Dr. Lobito Maldonado MD Primary Care Provider Active Dr. Saurabh Cherry MD Attending Provider, Emergency Provider Active Team Status: Inactive Member Role Status Dates Dr. Lobito Maldonado MD Primary Care Provider Active Dr. Joe Gallagher MD Emergency Provider Active Block Layer Relationship Specialty Start Date End Date Lobito Maldonado MD [address] [facility] [address] PCP - General Internal Medicine 03/10/22 Heather Kelley S, MATERIALS PLANNER/PRODUCTION PLANNER [address] [facility] [place] [address] Referring Neurology 04/06/18 Team Status: Active Member Role Status Dates Dr. Lobito Maldonado MD Primary Care Provider Active Dr. Magno Mora MD Emergency Provider Active Dr. Mayelin Pedraza MD Admit Provider, Other Provider Active Dr. Veena Tidwell MD Referring Provider, Other Prov ider Active Dr. Taras Santamaria DO Attending Provider Active Team Status: Inactive Member Role Status Dates Dr. Lobito Maldonado MD Primary Care Provider Active Dr. Joe Gallagher MD Attending Provider, Emergency Pro vider Active Team Status: Inactive Member Role Status Dates Dr. Lobito Maldonado MD Primary Care Provider Active Dr. Rajendra Rios DO Emergency Provider Active Block Layer Relationship Specialty Start Date End Date Lobito Maldonado MD [address] [facility] [address] PCP - General Internal Medicine 03/10/22 Heather Kelley, MATERIALS PLANNER/PRODUCTION PLANNER [address] [place] [address] Referring Neurology 04/06/18 Team Status: Inactive Member Role Status Dates Dr. Lobito Maldonado MD Primary Care Provider Active Dr. Rajendra Rios DO Attending Provider, Emergency P rovider Active Team Status: Inactive Member Role Status Dates Dr. Lobito Maldonado MD Primary Care Provider Active Dr. Neftali Dickson DO Attending Provider, Emergency P rovider Active Block Layer Relationship Specialty Start Date End Date Lobito Maldonado MD [address] [facility] [address] PCP - General Internal Medicine 03/10/22 Heather Kelley, MATERIALS PLANNER/PRODUCTION PLANNER [address] [facility] [place] [address] Referring Neurology 04/06/18 Block Layer Relationship Specialty Start Date End Date Lobito Maldonado MD [address] [place], [place] [address] PCP - General Internal Medicine 03/10/22 Heather Kelley, MATERIALS PLANNER/PRODUCTION PLANNER [address] [place], [place] [address] Referring Neurology 04/06/18 Block Layer Relationship Specialty Start Date End Date Lobito Maldonado MD [address] [place], [place] [address] PCP - General Internal Medicine 03/10/22 Heather Kelley, MATERIALS PLANNER/PRODUCTION PLANNER [address] [place] [address] Referring Neurology 04/06/18 Block Layer Relationship Specialty Start Date End Date Lobito Maldonado MD [address] [place], [place] [address] PCP - General Internal Medicine 03/10/22 Heather Kelley MATERIALS PLANNER/PRODUCTION PLANNER [address] [place] [address] Referring Neurology 04/06/18 Block Layer Relationship Specialty Start Date End Date Lobito Maldonado MD [address] [place], [place] [address] PCP - General Internal Medicine 03/10/22 Heather Kelley, MATERIALS PLANNER/PRODUCTION PLANNER [address] [place], [place] [address] Referring Neurology 04/06/18 Team Status: Active Member Role Status Dates Dr. Lobito Maldonado MD Primary Care Provider Active Dr. Lynnette Julian , Emergency Provider Active Dr. Mayelin Pedraza MD Attending Provider Active Team Status: Inactive Member Role Status Dates Dr. Lobito Maldonado MD Primary Care Provider Active Dr. Lynnette Julian DO Attending Provider, Emergency Yissel loyola Active Team Status: Inactive Member Role Status Dates Dr. Lobito Maldonado MD Primary Care Provider Active Dr. Neftali Dickson , Emergency Provider Active Block Layer Relationship Specialty Start Date End Date Lobito Maldonado MD [address] [facility] [address] PCP - General Internal Medicine 03/10/22 Heather Kelley S, MATERIALS PLANNER/PRODUCTION PLANNER [address] [place] [address] Referring Neurology 04/06/18 Team Status: Inactive Member Role Status Dates Dr. Lobito Maldonado MD Primary Care Provider Active Dr. Phillip Aguiar , Emergency Provider Active Team Status: Inactive Member Role Status Dates Dr. Lobito Maldonado MD Primary Care Provider Active Dr. Phillip Aguiar DO Attending Provider, Emergency Pr ovider Active Block Layer Relationship Specialty Start Date End Date Lobito Maldonado MD [address] [facility] [address] PCP - General Internal Medicine 03/10/22 Heather Kelley S, MATERIALS PLANNER/PRODUCTION PLANNER [address] [place] [address] Referring Neurology 04/06/18 Team Status: Active Member Role Status Dates Dr. Lobito Maldonado MD Primary Care Provider Active Dr. Phillip Aguiar DO Emergency Provider Active Dr. Daiana Banda DO Admit Provider, Attending Pro vider Active Team Status: Active Member Role Status Dates Dr. Lobito Maldonado MD Primary Care Provider Active Dr. Phillip Aguiar DO Emergency Provider Active Dr. Daiana Banda , DO Admit Provider, Attending Provider, Other Provider Active Team Status: Active Member Role Status Dates Dr. Lobito Maldonado MD Primary Care Provider Active Dr. Phillip Agiuar , Emergency Provider Active Dr. Daiana Banda , DO Admit Provider, Other Provide r Active Dr. Mg Patel MD Attending Provider, Other Provid er Active Team Status: Inactive Member Role Status Dates Dr. Lobito Maldonado MD Primary Care Provider Active Dr. Phillip Aguiar , Emergency Provider Active Dr. Daiana Banda , DO Admit Provider, Other Provide r Active Dr. Mg Patel MD Attending Provider Active Block Layer Relationship Specialty Start Date End Date Lobito Maldonado MD [address] [place], [place] [address] PCP - General Internal Medicine 03/10/22 Heather Kelley, MATERIALS PLANNER/PRODUCTION PLANNER [address] [place], [place] [address] Referring Neurology 04/06/18 Block Layer Relationship Specialty Start Date End Date Lobito Maldonado MD [address] [place], [place] [address] PCP - General Internal Medicine 03/10/22 Heather Kelley, MATERIALS PLANNER/PRODUCTION PLANNER [address] [place], [place] [address] Referring Neurology 04/06/18 Block Layer Relationship Specialty Start Date End Date Lobito Maldonado MD [address] [place], [place] [address] PCP - General Internal Medicine 03/10/22 Heather Kelley, MATERIALS PLANNER/PRODUCTION PLANNER [address] [place], [place] [address] Referring Neurology 04/06/18 Block Layer Relationship Specialty Start Date End Date Lboito Maldonado MD [address] [facility] [address] PCP - General Internal Medicine 03/10/22 Heather Kelley CNP [address] [place], [place] [address] Referring Neurology 04/06/18 Block Layer Relationship Specialty Start Date End Date Lobito Maldonado MD [address] [facility] [address] PCP - General Internal Medicine 03/10/22 Heather Kelley, MATERIALS PLANNER/PRODUCTION PLANNER [address] [place], [place] [address] Referring Neurology 04/06/18 Block Layer Relationship Specialty Start Date End Date Lobito Maldonado MD [address] [facility], [place] [address] PCP - General Internal Medicine 03/10/22 Heather Kelley, MATERIALS PLANNER/PRODUCTION PLANNER [address] [place], [place] [address] [phone] Referring Neurology 04/06/18 Block Layer Relationship Specialty Start Date End Date Lobito Maldonado MD [address] [facility], [place] [address] PCP - General Internal Medicine 03/10/22 Heather Kelley, MATERIALS PLANNER/PRODUCTION PLANNER [address] [place] [address] Referring Neurology 04/06/18 Block Layer Relationship Specialty Start Date End Date Lobito Maldonado MD [address] [place] [address] PCP - General Internal Medicine 03/10/22 Heather Kelley, EVA [address] [place] [address] Referring Neurology 04/06/18 Block Layer Relationship Specialty Start Date End Date Lobito Maldonado MD [address] [place] [address] PCP - General Internal Medicine 03/10/22 Heather Kelley, MATERIALS PLANNER/PRODUCTION PLANNER [address] [place] [address] Referring Neurology 04/06/18 Block Layer Relationship Specialty Start Date End Date Lobito Maldonado MD [address] [place] [address] PCP - General Internal Medicine 03/10/22 Heather Kelley, MATERIALS PLANNER/PRODUCTION PLANNER [address] [place] [address] Referring Neurology 04/06/18 Block Layer Relationship Specialty Start Date End Date Lobito Maldonado MD [address] [place] [address] PCP - General Internal Medicine 03/10/22 Heather Kelley, EVA [address] [place], [place] [address] Referring Neurology 04/06/18 Block Layer Relationship Specialty Start Date End Date Lobito Maldonado MD [address] [facility] [place] [address] PCP - General Internal Medicine 03/10/22 Heather Kelley CNP [address] [place] [address] Referring Neurology 04/06/18 Block Layer Relationship Specialty Start Date End Date Lobito Maldonado MD [address] [place] [address] PCP - General Internal Medicine 03/10/22 Heather Kelley CNP [address] [place], [place] [address] Referring Neurology 04/06/18 Block Layer Relationship Specialty Start Date End Date Lobito Maldonado MD [address] [facility] [place] [address] PCP - General Internal Medicine 03/10/22 Heather Kelley CNP [address] [place], [place] [address] Referring Neurology 04/06/18 Alis Chua, ONOFRE.MATERIALS PLANNER/PRODUCTION PLANNER [address] [place] [address] Loan Coordinator Internal Medicine 09/02/24 Block Layer Relationship Specialty Start Date End Date Lobito Maldonado MD [address] [place] [address] PCP - General Internal Medicine 03/10/22 Heather Kelley CNP [address] [place], [place] [id number] Referring Neurology 04/06/18 Alis Chua, PLANT ELECTRICAL ENGINEER.MATERIALS PLANNER/PRODUCTION PLANNER [address] [place] [address] Loan Coordinator Internal Medicine 09/02/24 Block Layer Relationship Specialty Start Date End Date Lobito Maldonado MD [address] [place] [address] PCP - General Internal Medicine 03/10/22 Heather Kelley, MATERIALS PLANNER/PRODUCTION PLANNER [address] [place] [address] Referring Neurology 04/06/18 Alis Chua, PLANT ELECTRICAL ENGINEER.MATERIALS PLANNER/PRODUCTION PLANNER [address] [place] [address] Loan Coordinator Internal Medicine 09/02/24 Block Layer Relationship Specialty Start Date End Date Lobito Maldonado MD [address] [place] [address] PCP - General Internal Medicine 03/10/22 Heather Kelley, MATERIALS PLANNER/PRODUCTION PLANNER [address] [place] [address] Referring Neurology 04/06/18 Alis Chua, PLANT ELECTRICAL ENGINEER.MATERIALS PLANNER/PRODUCTION PLANNER [address] [place] [address] Loan Coordinator Internal Medicine 09/02/24 Block Layer Relationship Specialty Start Date End Date Lobiot Maldonado MD [address] [place] [address] PCP - General Internal Medicine 03/10/22 Heather Kelley, MATERIALS PLANNER/PRODUCTION PLANNER [address] [place] [address] Referring Neurology 04/06/18 Alis Chua, PLANT ELECTRICAL ENGINEER.MATERIALS PLANNER/PRODUCTION PLANNER [address] [place] [address] Loan Coordinator Internal Medicine 09/02/24 Block Layer Relationship Specialty Start Date End Date Lobito Maldonado MD [address] [place] [address] PCP - General Internal Medicine 03/10/22 Heather Kelley CNP [address] [place] [address] Referring Neurology 04/06/18 Alis Chua, PLANT ELECTRICAL ENGINEER.MATERIALS PLANNER/PRODUCTION PLANNER [address] [place] [address] Loan Coordinator Internal Medicine 09/02/24 Block Layer Relationship Specialty Start Date End Date Lobito Maldonado MD [address] [place] [address] PCP - General Internal Medicine 03/10/22 Heather Kelley CNP [address] [place] [address] Referring Neurology 04/06/18 Alis Chua, PLANT ELECTRICAL ENGINEER.MATERIALS PLANNER/PRODUCTION PLANNER [address] [place] [address] Loan Coordinator Internal Medicine 09/02/24 Team Status: Inactive Member Role Status Dates Dr. Lobito Maldonado MD Primary Care Provider Active Start: February 13, 2025 End: February 13, 2025 Dr. Lobito Maldonado MD Referring Provider Active Start: February 13, 2025 End: February 13, 2025 Dr. Antony Burnett MD Attending Provider Active Start: February 13, 2025 End: February 13, 2025 Team Status: Inactive Member Role Status Dates Dr. Lobito Maldonado MD Primary Care Provider Active Start: February 13, 2025 End: February 13, 2025 Dr. Antony Burnett MD Attending Provider Active Start: February 13, 2025 End: February 13, 2025 Dr. Antony Burnett MD Referring Provider Active Start: February 13, 2025 End: February 13, 2025 Block Layer Relationship Specialty Start Date End Date Lobito Maldonado MD [address] [place] [address] PCP - General Internal Medicine 03/10/22 Heather Kelley CNP [address] [place] [address] Referring Neurology 04/06/18 Alis Chua, ONOFRE.MATERIALS PLANNER/PRODUCTION PLANNER [address] [place] [address] Loan Coordinator Internal Medicine 09/02/24 Goals (unrecognized section and content) Goals may be documented in a n alternate sectionGoals may be documented in an alternate sectionGoals may be documented in an alternate sectionGoals may be documented in an alternate sectionGoals may be documented in an alternate sectionGoals may be documented in an alternate sectionGoals may be documented in an alternate sectionGoals may be documented in an alternate sectionGoals may be documented in an alternate sectionGoals may be documented in an alternate sectionGoals may be documented in an alternate section No data available for this sectionGoals may be documented in an alternate section FOR RECORDS PERTAINING TO PATIENTS WHO ARE [...] BE BASED ON THE PRIMARY CLINICAL RECORDS. [facility] [employer] [facility]. provides no warranty or guarantee of the accuracy or completeness of information in this document.
[2025-03-16 19:20] LABS: ALB/GLOB Ratio 1.5 RATIO (0.9-2.4); AST(SGOT) 14 U/L (<=37); Alanine Aminotransfer ALT/SGPT 12 U/L (<=46); Albumin, Serum 4.8 g/dL (3.5-5.0); Alkaline Phosphatase 77 U/L (40-129); Anion Gap 16 (5-15); BUN 18 mg/dL (4-19); BUN/Creat Ratio 16.9 RATIO (10-20); Carbon Dioxide 22.3 mmol/L (21.0-32.0); Chloride 98 mmol/L (98-108); Creatinine, Serum 1.04 mg/dL (0.70-1.20); EST Glomerular Filtration Rate 83 (>60); Estimated Creatinine Clearance 76.48 ml/min (50-250); Globulin 3.3 g/dL (2.2-4.2); Glucose 230 mg/dL (70-99); Lipase 130 U/L (13-75); Potassium 3.5 mmol/L (3.3-5.1); Protein, Total 8.1 g/dL (5.9-8.4); Sodium Level 137 mmol/L (133-145); Total Bilirubin 0.82 mg/dL (0.00-1.30)
[2025-03-16] MEDS: Lidocaine 2% Viscous15 ML UDC 15 ML PO (19:53)
[2025-03-16] MEDS: Mag Hydrox/Al Hydrox/Simeth 30 ML UDC PO (19:53)
[2025-03-16] MEDS: Famotidine 200 MG/20 ML MDV 20 MG in 0.9% Normal Saline (Pres. free 8 ML 300 MG IV (19:56)
[2025-03-16 20:27] VITALS: BP 139/89; PULSE 83; RESP 23; O2SAT 100
[2025-03-16 21:29] VITALS: BP 144/104; PULSE 92; RESP 20; TEMP 36.8; O2SAT 99
== END 2025-03-16 21:31 | disposition home or self-care (01) ==
PROVIDERS: Emergency Provider Emergency Medicine; PCP Internal Medicine; Visit Provider Emergency Medicine
DX: K85.90 Acute pancreatitis without necrosis or infection, unspecified (principal); E11.42 Type 2 diabetes mellitus with diabetic polyneuropathy; Z79.4 Long term (current) use of insulin; E78.5 Hyperlipidemia, unspecified; I10 Essential (primary) hypertension; E86.0 Dehydration; K76.0 Fatty (change of) liver, not elsewhere classified; K21.9 Gastro-esophageal reflux disease without esophagitis; K62.5 Hemorrhage of anus and rectum; Z79.82 Long term (current) use of aspirin; Z79.84 Long term (current) use of oral hypoglycemic drugs; Z79.899 Other long term (current) drug therapy; I25.2 Old myocardial infarction; Z86.73 Personal history of transient ischemic attack (TIA), and cerebral infarction without residual deficits; Z87.891 Personal history of nicotine dependence; Z82.49 Family history of ischemic heart disease and other diseases of the circulatory system
CPT/HCPCS: 46600; 80053; 83690; 85025; 96374; 96375; 99284; A4216; J2405

== ENCOUNTER → 2025-08-01 | Outpatient (CLI) | payer MEDICARE, MEDICAID, SELFPAY ==
[2025-08-01 16:58] LABS: AST(SGOT) 13 U/L (<=37); Alanine Aminotransfer ALT/SGPT 13 U/L (<=46); Albumin, Serum 4.6 g/dL (3.4-4.8); Alkaline Phosphatase 72 U/L (40-129); Anion Gap 15 (5-15); BUN 11 mg/dL (4-19); BUN/Creat Ratio 10.5 RATIO (10-20); CRP < 3.00 mg/L (0.0-3.0); Calcium,Total 10.2 mg/dL (7.6-11.0); Carbon Dioxide 23.1 mmol/L (21.0-32.0); Chloride 96 mmol/L (98-108); Globulin 3.0 g/dL (2.2-4.2); Glucose 228 mg/dL (70-99); Potassium 3.5 mmol/L (3.3-5.1)
[2025-08-01 17:03] LABS: Hematocrit 42.1 % (40-54); Hemoglobin 14.4 g/dL (13.0-16.5); Immature Granulocytes Count 0.030 X10^3/uL (0.0-0.0); Mean Corp Hgb Conc 34.2 g/dL (32-36); Mean Corpuscular Volume 91.3 fL (80-94); Mean Platelet Vol. 10.3 fl (6.2-12.0); NRBC Flagged by Analyzer 0 % (0-5); Platelet Count 241 K/mm3 (150-450); RBC Distribution Width CV 12.0 % (11.6-14.6); RBC Distribution Width SD 40.3 fl (35.1-43.9); Red Blood Count 4.61 M/mm3 (4.6-6.2); White Blood Count 11.5 K/mm3 (4.4-11.0)
[2025-08-04 15:08] LABS: Carbohydrate Ag 19-9 2261 15 U/mL (0-35)
== END | disposition home or self-care (01) ==
LOC: LAB 15:28
PROVIDERS: PCP Internal Medicine; Referring Provider Internal Medicine Gastroenterology; Visit Provider Internal Medicine Gastroenterology
DX: D64.9 Anemia, unspecified (principal); K86.0 Alcohol-induced chronic pancreatitis
CPT/HCPCS: 36415; 80053; 85025; 85652; 86140; 86301

== ENCOUNTER → 2025-08-19 | Outpatient (CLI) | payer MEDICARE, MEDICAID, SELFPAY ==
--- NOTE | 2025-08-19 07:18 | CT_ITS ---
PROCEDURE: ABDOMEN/PELVIS WITH CONTRAST 08/19/2025 REASON FOR EXAM: PANCREATITIS TECHNIQUE: Procedure Code: [id number] Modality: CT Procedure: ABDOMEN/PELVIS WITH CONTRAST Coronal and Sagittal reconstruction series were provided. CONTRAST: Isovue 370 VOLUME: 75 mL One or more dose reduction techniques were used (e.g., Automated exposure control, adjustment of the mA and/or kV according to patient size, use of iterative reconstruction technique. RADIATION DOSE SUMMARY: CTDlvol: 16.46 mGy DLP: 884.88 mGycm COMPARISON: CT abdomen and pelvis August 13, 2024. FINDINGS: Lung bases: Clear. Liver: Unremarkable. Gallbladder: Surgically absent. No biliary dilation. Spleen: Unremarkable. Pancreas: Unremarkable. Adrenals: Unremarkable. Kidneys: No hydronephrosis. No nephrolithiasis. Bladder: Unremarkable. Reproductive Organs: The prostate is enlarged measures 6 mm cm in diameter. Bowel: No bowel wall obstruction. No bowel dilation. Appendix: Normal. Lymph nodes: No lymphadenopathy. Vasculature: Atherosclerotic calcifications. No aneurysm. Peritoneum / Retroperitoneum: No free air or free fluid. Bones: No acute bony abnormalities CT/Abdomen/Pelvis WITH Contrast IMPRESSION: No acute abdominopelvic abnormalities. Please note that pancreatitis disc can not be ruled out by normal CT scan. Reading Location: [facility]
--- OUTSIDE RECORDS SUMMARY | 2025-08-19 07:21 | XMS RPT_ITS | CCD ---
Author Organization [facility] Care Team Providers Care 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 Name Role Phone Elvin Linares Unavailable Unavailable PROVIDER, UNKNOWN Unavailable Unavailable Natasha Zamudio Unavailable Unavailable Elvin Linares Unavailable Unavailable Elvin Linares Unavailable Unavailable Tara Wadsworth Unavailable Heather Kelley CNP Unavailable Robin COMPRESSOR OPERATOR ADJUSTER.TRAFFIC OFFICER, ANMOL, Souleymane Primary Care Provider EUGENIO BENITEZ Attending Unavailabl SOULEYMANE Baker Primary Care Unavailable Robin WALL WORKER, WALL WORKER-C Souleymane Primary Care Provider Dr. Toya Cedillo Emergency Provider Dr. Dillon Harrell Admit Provider Dr. Dillon Harrell Attending Provider Dr. Dillon Harrell Other Provider Robin WALL WORKER, WALL WORKER-C Souleymane Referring Provider [phone] Jesusita LEOS, PA Anabel Elizalde Attending Provider Dr. Yahir Arteaga Emergency Provider Dr. Mg Patel Admit Provider Unavailable Dr. Mg Patel Attending Provider Unavailable Dr. Mg Patel Other Provider Unavailable Dr. Ana Yuan Attending Provider Dr. Ana Yuan Other Provider Rosalio, Dr. Grajeda Attending Provider Dr. John Paul Araujo Other Provider [phone] Dr. John Paul Araujo Attending Provider Lobito Maldonado MD Primary Care Provider Dr. John Paul Araujo Referring Provider Franny WALL WORKER, WALL WORKER-C Savannah Elizalde Attending Provider Robin WALL WORKER, WALL WORKER-C Souleymane Primary Care Provider Warren TRAFFIC OFFICER, Heather S Unavailable Lobito Maldonado MD Primary Care Provider Warren TRAFFIC OFFICER, Heather S Unavailable Dr. Lobito Maldonado Primary Care Provider Dr. Lobito Maldonado Referring Provider Dr. Phillip Aguiar Emergency Provider Dr. Lazaro Chinit Provider Dr. Lazaro Chin Attending Provider Dr. Lazaro Chin Other Provider Dr. Roxana Cox Attending Provider Dr. Roxana Cox Other Provider Dr. Mia Carr Attending Provider Dr. Mia Carr Other Provider Franny WALL WORKER, WALL WORKER-C Savannah Elizalde Attending Provider Dr. Lobito Maldonado Primary Care Provider Dr. Lobito Maldonado Referring Provider Dr. Phillip Aguiar Emergency Provider Dr. Lazaro Chinit Provider Dr. Lazaro Chin Attending Provider Dr. Lazaro Chin Other Provider Dr. Roxana Cox Attending Provider Dr. Roxana Cox Other Provider Dr. Mia Carr Attending Provider Nuamah, Dr. Bellamy Other Provider Dr. Antony Burnett Attending Provider Warren TRAFFIC OFFICER, Heather S Unavailable Lobito Maldonado MD Primary Care Provider MD Alejandro Gandhi Emergency Provider Van, Dr. Coker Admit Provider Van, Dr. Coker Attending Provider Van, Dr. Coker Other Provider Bla COMPRESSOR OPERATOR ADJUSTER.TRAFFIC OFFICER, DNP, Souleymane Primary Care Provider Dr. Yahir Arteaga Emergency Provider [place] creek[place], Dr. Bellamy Admit Provider Dr. Lobito Maldonado Primary Care Provider Dr. Lobito Maldonado Referring Provider Dr. Dillon Harrell Attending Provider Dr. Dillon Harrell Other Provider Dr. Lobito Maldonado Primary Care Provider Dr. Mia Carr Attending Provider Lilly, Dr. Bellamy Other Provider Dr. Magno Mora Emergency Provider Dr. Mayelin Pedraza Admit Provider Dr. Mayelin Pedraza Other Provider Dr. Veena Tidwell Other Provider Rosalio, Dr. Grajeda Attending Provider Dr. Veena Tidwell Attending Provider Dr. Lobito Maldonado Primary Care Provider MD Alejandro Gandhi Emergency Provider Van, Dr. Coker Admit Provider Dr. John Paul Araujo Attending Provider Van, Dr. Coker Other Provider Dr. Yahir Arteaga Emergency Provider [facility], Dr. Bellamy [facility] Dr. Bellamy Other Provider Dr. Dillon Harrell Attending Provider Dr. Dillon Harrell Other Provider Dr. Magno Mora Emergency Provider Dr. Mayelin Pedraza Admit Provider Dr. Mayelin Pedraza Other Provider Yaw, Dr. Veena Ponce Other Provider Rosalio, Dr. Grajeda Attending Provider Yaw, Dr. Veena Ponce Attending Provider Dr. Lobito Maldonado Primary Care Provider MD Alejandro Gandhi Emergency Provider Van, Dr. Coker Admit Provider Dr. John Paul Araujo Attending Provider Van, Dr. Coker Other Provider Dr. Yahir Arteaga Emergency Provider [facility], Dr. Bellamy Admit Provider [facility] Dr[facility] Bellamy Attending [facility] Dr. Bellamy Other Provider Dr. Dillon Harrell [...] Provider Koram, Dr. Veena Ponce Referring Provider Joel, Dr. Robin Referring Provider Savanna, Dr. Nunes Attending Provider Maldonado, Dr. Robin Primary Care Provider Koram, Dr. Veena Ponce Referring Provider Dr. Antony Burnett Attending Provider Maldonado, Dr. Robin Primary Care Provider Dr. Antony Burnett Attending Provider Joel, Dr. Robin Primary Care Provider Maldonado, Dr. Robin Referring Provider Dr. Taras Santamaria Attending Provider Maldonado, Dr. Robin Primary Care Provider Joel, Dr. Robin Referring Provider Dr. Taras Santamaria Attending Provider Dr. Lynnette Julian Emergency Provider Dr. Mayelin Pedraza Attending Provider Maldonado, Dr. Robin Primary Care Provider Joel, Dr. Robin Referring Provider Dr. Taras Santamaria Attending Provider Dr. Antony Burnett Attending Provider Dr. Lobito Maldonado Primary Care Provider Dr. Lobito Maldonado Referring Provider Dr. Taras Santamaria Attending Provider Dr. Antony Burnett Attending Provider Dr. Phillip Aguiar Emergency Provider Dr. Daiana Banda Admit Provider Dr. Daiana Banda Attending Provider Dr. Daiana Banda Other Provider Dr. Mg Patel Attending Provider Unavailable Dr. Mg Patel Other Provider Unavailable Joel CADE, Lobito Self Primary Care Provider SOLO CALLES, DAIANA Dallas Attending Unavailab le Toma COMPRESSOR OPERATOR ADJUSTER.EVA, Alis Elizalde Unavailable Joel CADE, Dr. Robin Primary Care Provider Joel CADE, Dr. Robin Referring Provider Dr. Antony Burnett MD Attending Provider Lex CADE, Dr. Hardy Referring Provider Dr. Genaro Trammell MD Emergency Provider Jp CADE, Dr. Lam Attending Provider Dr. Taras Santamaria DO Attending Provider JOEL, OPAL Primary Care Unavailable KAT GALINDO Attending Unavailable MALDONADO, OPAL Primary Care Unavailable MALDONADO, OPAL Attending Unavailable MALDONADO, OPAL Primary Care Unavailable MALDONADO, OPAL Referring Unavailable MALDONADO, OPAL Primary Care Unavailable MALDONADO, OPAL Referring Unavailable MALDONADO, OPAL Primary Care Unavailable KAT GALINDO Attending Unavailable MALDONADO, OPAL Primary Care Unavailable ALIS CHUA Attending Unavailable MALDONADO, OPAL Primary Care Unavailable MALDONADO, OPAL Referring Unavailable AMLDONADO, OPAL Primary Care Unavailable SELF Referring Unavailable ALIS CHUA Attending Unavailable Maldonado, Lobito Primary Care Unavailable Maldonado, Lboito Referring Unavailable Friend, Taras Attending Unavailable Maldonado, Lobito Primary Care Unavailable Maldonado, Lobito Referring Unavailable Friend, Taras Attending Unavailable Maldonado, Lobito Primary Care Unavailable Trammell, Genaro Attending Unavailable Maldonado, Lobito Primary Care Unavailable Neftali Dickson Attending Unavailable Friend, Taras Referring Unavailable Maldonado, Lobito Primary Care Unavailable Friend, Taras Attending Unavailable Maldonado, Lobito Primary Care Unavailable Antony Burnett Attending Unavailable Antony Burnett Referring Unavailable Friend, Taras Referring Unavailable Maldonado, Lobito Primary Care Unavailable Friend, Taras Attending Unavailable Trammell, Genaro Attending Unavailable Maldonado, Lobito Primary Care Unavailable Friend, Taras Attending Unavailable Maldonado, Lobito Primary Care Unavailable Maldonado, Lobito Referring Unavailable Maldonado, Lobito Primary Care Unavailable Antony Burnett Attending Unavailable Maldonado, Lobito Referring Unavailable Allergies Allergy Classification Reported Allergen(s) Allergy Type Date of Onset Reaction(s) Facility Acetaminophen / HYDROcodone (1 source) Acetaminophen / HYDROcodone Drug Allergy 05-07-20 13 Swelling [facility] Angiotensin Converting Enzyme (RAFFI) Inhibitors (1 source) Lisinopril Drug Allergy 05-07-20 13 Swelling [facility] cyclobenzaprine (1 source) cyclobenzaprine Drug Allergy 03-26-20 21 Itching [facility] Iodine (and Iodine containting drugs) (1 source) Iodine Drug Allergy 11-09-19 23 Itching [facility] Opioid Agonists (1 source) traMADol Drug Allergy 01-01-20 16 Itching [facility] (2 sources) Acetaminophen / HYDROcodone Drug Allergy 02-25-20 14 "skin crawling" [facility] Work Phone: (20 sources) cyclobenzaprine; Translations: [CYCLOBENZAPRINE] Drug Allergy 02-25-20 14 Itching [facility] Work Phone: (20 sources) Lisinopril; Translations: [LISINOPRIL] Drug Allergy 05-07-20 13 Swelling [facility] Work Phone: (20 sources) Acetaminophen / HYDROcodone; Translations: [HYDROCODONE-ACETA MINOPHEN] Drug Allergy 05-07-20 13 Swelling [facility] Work Phone: (20 sources) Morphinan opioid; Translations: [OPIOIDS - MORPHINE ANALOGUES] Drug Allergy 11-28-19 21 Itching [facility] (20 sources) traMADol; Translations: [TRAMADOL] Drug Allergy 01-01-20 16 Itching [facility] (20 sources) Morphine; Translations: [MORPHINE] Drug Allergy 12-11-19 22 Itching [facility] (20 sources) HYDROcodone; Translations: [hydrocodone bitartrate] Drug Allergy 02-28-20 22 Itching [facility] (20 sources) HYDROmorphone Drug Allergy 03-06-20 22 Itching [facility] Comment on above: CAN TAKE WITH BENADR YL (17 sources) Triiodobenzoic Acids; Translations: [IODINATED CONTRAST MEDIA] Propensity to adverse reactions 10-26-19 23 ITCHY FEET, Rash [facility] Comment on above: hives to bilat feet (20 sources) Iodinated Contrast Media Drug Allergy 10-26-19 23 Itching [facility] (20 sources) Iodine; Translations: [IODINE] Drug Allergy 11-09-19 23 Itching [facility] (1 source) HYDROmorphone Drug Allergy 03-16-20 25 [facility] (1 source) traMADol Drug Allergy 03-16-20 25 [facility] (1 source) Iodinated Contrast Media Drug allergy (disorder) 03-16-20 25 [facility] Medications Current Medications Medication Drug Class(es) Dates Sig (Normalized) Sig (Original) acetaminophen 325 mg oral tablet (8 sources) Start: 09-06-2022 take 650 mg by mouth every six hours Acetaminophen Active 650 MG PO EVERY 6 HOURS September 06, 2022 12:00am Start: 01-01-2021 take 650 mg by mouth every six hours as needed Acetaminophen Active 650 MG PO EVERY 6 HOURS NEEDED January 01, 2021 12:00am acetaminophen 325 mg / oxyCODONE hydrochloride 5 mg oral tablet (20 sources) Opioid Agonist Start: 08-12-2024 End: 11-19-2024 take 1 tablet by mouth every six hours as needed for pain Oxycodone-Acetaminophen 5-325 mg tablet Active 1 {tbl} PO EVERY 6 HOURS NEEDED as needed for pain 20 5 0 March 16, 2025 Acute pancreatitis Acute pancreatitis without necrosis or infection, unspecified Start: 01-07-2024 take 1 tablet by aristeo th every six hours Oxycodone-Acetaminophen (Percocet) 5-325 mg tablet Active 1 TABLET PO EVERY 6 HOURS 12 January 07, 2024 Start: 11-20-2023 End: 01-07-2024 Oxycodone-Acetaminophen (Per cocet) 5-325 mg tablet Discontinued 1 {tbl} PO EVERY 6 HOURS as needed for pain 12 3 0 November 20, 2023 January 07, 2024 8:44am Epigastric pain Epigastric pain Start: 11-07-2023 End: 01-07-2024 Oxycodone-Acetaminophen (Per cocet) 5-325 mg tablet Discontinued 1 {tbl} PO Q8H as needed for pain 10 3 0 November 07, 2023 January 07, 2024 8:44am Pancreatitis Acute pancreatitis without necrosis or infection, unspecified Start: 10-10-2023 End: 11-07-2023 Oxycodone-Acetaminophen (Per cocet) 5-325 mg tablet Discontinued 1 {tbl} PO EVERY 6 HOURS as needed for pain 12 3 0 October 10, 2023 November 07, 2023 9:25am Pancreatitis Acute pancreatitis without necrosis or infection, unspecified Start: 04-30-2023 End: 05-04-2023 Oxycodone-Acetaminophen 5-32 5 mg tablet Discontinued 1 {tbl} PO EVERY 6 HOURS NEEDED as needed for Pain 12 3 0 April 30, 2023 May 04, 2023 1:29am Pancreatitis Abdominal pain Acute pancreatitis without necrosis or infection, unspecified Unspecified abdominal pain Start: 04-30-2023 End: 05-04-2023 take 1 tablet by mouth every six hours as needed Oxycodone-Acetaminophen Discontinued 1 TABLET PO EVERY 6 HOURS NEEDED 12 3 April 30, 2023 May 04, 2023 1:29am Start: 03-07-2022 take 1 tablet by aristeo th every six hours Oxycodone-Acetaminophen (Percocet) 5-325 mg tablet Active 1 TABLET PO EVERY 6 HOURS 10 3 March 07, 2022 May take with Benadryl. Start: 08-02-2021 End: 01-03-2022 Oxycodone-Acetaminophen (Per cocet) 5-325 mg tablet Discontinued 1 {tbl} PO EVERY 6 HOURS as needed for pain 12 3 0 August 02, 2021 January 03, 2022 1:45pm Pancreatitis Acute pancreatitis without necrosis or infection, unspecified Start: 08-02-2021 End: 01-03-2022 Start: 05-12-2019 End: 05-15-2019 Oxycodone-Acetaminophen 1 TA BLET tablet Discontinued 1 {tbl} PO EVERY 6 HOURS NEEDED as needed for Pain 6 3 0 May 12, 2019 May 14, 2019 12:00am May 15, 2019 12:07am Abdominal pain Unspecified abdominal pain Start: 05-12-2019 End: 05-15-2019 take 1 tablet by mouth every six hours as needed Oxycodone-Acetaminophen Discontinued 1 TABLET PO EVERY 6 HOURS NEEDED 6 3 May 12, 2019 May 15, 2019 12:07am Start: 05-12-2019 End: 05-15-2019 Start: 11-09-2018 End: 11-12-2018 Oxycodone-Acetaminophen 1 TA BLET tablet Discontinued 1 {tbl} PO EVERY 6 HOURS NEEDED as needed for Pain 12 3 0 November 09, 2018 1:00am November 11, 2018 1:00am November 12, 2018 1:09am Abdominal pain Unspecified abdominal pain Start: 11-09-2018 End: 11-12-2018 take 1 tablet by mouth every six hours as needed Oxycodone-Acetaminophen Discontinued 1 TABLET PO EVERY 6 HOURS NEEDED 12 3 November 09, 2018 1:00am November 12, 2018 1:09am Start: 11-09-2018 End: 11-12-2018 amitriptyline hydrochloride 25 mg oral tablet (20 sources) Tricyclic Antidepressant Start: 02-12-2025 take 1 tablet by mouth once daily at bedtime amitriptyline (ELAVIL) 25 mg tablet Take 1 tablet by mouth daily at bedtime. 90 tablet 1 02/12/2025 Active Start: 07-03-2018 End: 11-07-2024 take 1 tablet by mouth once daily at bedtime amitriptyline (ELAVIL) 25 mg tablet Take 1 tablet by mouth daily at bedtime. 30 tablet 2 11/08/2024 Active Comment on above: Take 1 tablet by aristeo th daily at bedtime. aspirin 81 mg delayed release oral tablet (20 sources) Platelet Aggregation Inhibitor, Nonsteroidal Anti-inflammatory Drug Start: 02-12-2025 take 1 tablet by mouth once daily aspirin, enteric coated (ASPIRIN, ENTERIC COATED) 81 mg EC tablet Take 1 tablet by mouth once daily. 90 tablet 3 02/12/2025 Active Start: 11-19-2021 End: 11-07-2024 take 1 tablet by mouth once daily aspirin, enteric coated (ASPIRIN, ENTERIC COATED) 81 mg EC tablet Take 1 tablet by mouth once daily. 30 tablet 2 11/08/2024 Active Start: 12-22-2014 End: 04-09-2020 take 1 tablet by mouth once daily Aspirin 81 mg tablet,chewable Discontinued 81 mg PO DAILY@0800 30 11 April 16, 2019 3:42pm April 09, 2020 4:08pm heart Start: 02-26-2014 take 1 tablet by aristeo th once daily ASPIRIN 81 MG TABS One tablet by mouth daily ASPIRIN [id number] Des Corrales MD Start: 02-26-2014 take 1 tablet by aristeo th once daily ASPIRIN EC 81 MG TBEC One tablet by mouth daily ASPIRIN [id number] Des Corrales MD Comment on above: Take 1 tablet by aristeo th once daily. benoxinate hydrochloride 4 mg/ml / fluorescein sodium 3 mg/ml ophthalmic solution (2 sources) Diagnostic Dye Start: 07-18-2024 End: 07-19-2024 fluorescein-benoxi kady 0.3-0.4 % 1 Drop (FLURESS) Start: 07-18-2024 End: 07-19-2024 1 Drop, BOTH EYES, DIRECT ED, Starting on Mon07/18/24 at 1300, Until Mon07/19/24 at 0059, Administer for applanation tonometry. In the event of a Fluress shortage, administer Sonia-Fluor 1 drop into both eyes as directed for applanation tonometry Blood-Glucose Meter,Continuo us (FREESTYLE AGUSTIN 3 READER) misc (20 sources) Start: 11-16-2023 Blood-Glucose Meter,Continuous (FREESTYLE AGUSTIN 3 READER) [facility] [place] Indications: Type 2 diabetes mellitus without complication, with long-term current use of insulin ([facility]) Check glucose 4 or more times daily. 1 Each 11/16/2023 Active Start: 11-16-2023 Blood-Glucose Meter,Continuous (FREESTYLE AGUSTIN 3 READER) [facility] [place] Indications: Type 2 diabetes mellitus without complication, with long-term current use of insulin ([facility]) Check glucose 4 or more times daily. 1 Each 0 11/16/2023 Active Comment on above: Check glucose 4 or m ore times daily. cholecalciferol 0.125 mg oral capsule (20 sources) Vitamin D Start: 02-12-2025 take 1 capsule by mouth once daily Cholecalciferol, Vitamin D3, 125 mcg (5,000 unit) cap Take 1 capsule by mouth once daily. 90 capsule 3 02/12/2025 Active Start: 11-09-2018 End: 11-07-2024 take 1 capsule by mouth once daily Cholecalciferol, Vitamin D3, 125 mcg (5,000 unit) cap Take 1 capsule by mouth once daily. 30 capsule 2 11/08/2024 Active Comment on above: Take 1 capsule by mo [facility] once daily. docosahexaenoic acid/epa (FI SH OIL ORAL) (20 sources) docosahexaenoic acid/epa (FISH OIL ORAL) Take by mouth once daily. Active docosahexaenoic acid/epa (FISH OIL ORAL) Take by mouth once daily. 0 Active Comment on above: Take by mouth once d aily. escitalopram 10 mg oral tablet (20 sources) Serotonin Reuptake Inhibitor Start: take 1 tablet by mouth once daily escitalopram oxalate (LEXAPRO) 10 mg tablet Indications: Posttraumatic stress disorder Take 1 tablet by mouth once daily. 90 tablet 3 02/12/2025 Active Start: 03-10-2022 End: 11-07-2024 take 1 tablet by mouth once daily escitalopram oxalate (LEXAPRO) 10 mg tablet Indications: Posttraumatic stress disorder Take 1 tablet by mouth once daily. 30 tablet 2 11/08/2024 Active Comment on above: Take 1 tablet by aristeo once daily. flash glucose sensor (FREESTYLE AGUSTIN 14 DAY SENSOR) kit (20 sources) Start: 03-21-2025 flash glucose sensor (FREESTYLE AGUSTIN 14 DAY SENSOR) kit Indications: Type 2 diabetes mellitus without complication, with long-term current use of insulin (HCC) 1 each every 2 weeks. 1 kit 5 03/21/2025 Active Start: 04-22-2024 End: 03-21-2025 flash glucose sensor (FREEST YLE AGUSTIN 14 DAY SENSOR) kit Indications: Type 2 diabetes mellitus without complication, with long-term current use of insulin (HCC) 1 Each every 2 weeks. 1 Kit 5 04/22/2024 03/21/2025 Discontinued Start: 04-22-2024 flash glucose sensor (FREESTYLE AGUSTIN 14 DAY SENSOR) kit Indications: Type 2 diabetes mellitus without complication, with long-term current use of insulin (HCC) 1 Each every 2 weeks. 1 Kit 5 04/22/2024 Active Start: 11-16-2023 End: 04-19-2024 flash glucose sensor (FREEST YLE AGUSTIN 14 DAY SENSOR) kit Indications: Type 2 diabetes mellitus without complication, with long-term current use of insulin (HCC) 1 Each every 2 weeks. 1 Kit 5 11/16/2023 04/19/2024 Discontinued Start: 11-16-2023 flash glucose sensor (FREESTYLE AGUSTIN 14 DAY SENSOR) kit Indications: Type 2 diabetes mellitus without complication, with long-term current use of insulin (HCC) 1 Each every 2 weeks. 1 Kit 5 11/16/2023 Active Comment on above: 1 Each every 2 weeks . fluticasone propionate 0.05 mg/actuat metered dose nasal spray (20 sources) Corticosteroid Start: 07-04-2022 Start: 07-04-2022 Fluticasone Pr opionate (Flonase Allergy Relief) 50 mcg/actuation [place],Suspension Active 2 SPRAY INTRANASAL DAILY July 04, 2022 12:00am Start: 06-08-2017 FLUTICASONE NM OPIONATE 50 MCG/ACT SUSP (0.05mg/inh) 2 sprays each nostril once a day FLUTICASONE PROPIONATE [id number] Des Corrales MD fluticasone prop ionate (FLONASE NASAL) Use in the nose once daily. Active fluticasone prop ionate (FLONASE NASAL) Use in the nose once daily. 0 Active Comment on above: Use in the nose once daily. folic acid 1 mg oral tablet (20 sources) Start: 09-08-2022 take 1 tablet by mouth three times daily folic acid 1 mg tablet Take 1 mg by mouth three times daily. 09/08/2022 Active Comment on above: Take 1 mg by mouth t hree times daily. FREESTYLE AGUSTIN 3 SENSOR josse (20 sources) Start: 09-11-2024 FREESTYLE AGUSTIN 3 SENSOR josse Apply 1 Kit to affected area as directed. Change twice monthly. Check blood glucose four or more times daily. 2 Each 5 09/11/2024 Active Start: 04-22-2024 End: 09-11-2024 FREESTYLE AGUSTIN 3 SENSOR dev i Apply 1 Kit to affected area as directed. Change twice monthly. Check blood glucose four or more times daily. 2 Each 5 04/22/2024 09/11/2024 Discontinued Start: 04-22-2024 FREESTYLE LIBR E 3 SENSOR josse Apply 1 Kit to affected area as directed. Change twice monthly. Check blood glucose four or more times daily. 2 Each 5 04/22/2024 Active Start: 01-07-2024 End: 04-22-2024 FREESTYLE AGUSTIN 3 SENSOR dev i 01/07/2024 04/22/2024 Discontinued Start: 01-07-2024 End: 04-22-2024 FREESTYLE AGUSTIN 3 SENSOR dev i Start: 01-07-2024 FREESTYLE LIBR E 3 SENSOR josse gabapentin 300 mg oral capsule (20 sources) Anti-epileptic Agent Start: 10-06-2020 End: 08-11-2025 take 1 capsule by mouth twice daily Gabapentin 300 mg capsule Active 300 mg PO TWICE A DAY October 06, 2020 1:00am nerve pain Comment on above: Take 1 capsule by [facility] twice daily for 90 days. Take 1 capsule by [facility] twice daily for 180 days. Take 1 capsule by [facility] twice daily for 60 days. Take 1 capsule by [facility] two times a day for 120 days. GAS RELIEF 80, SIMETHICONE, ORAL (20 sources) take 1 tablet by mouth three times daily GAS RELIEF 80, SIMETHICONE, ORAL Take 1 tablet by mouth three times daily. Active take 1 tablet by [facility] three times daily GAS RELIEF 80, SIMETHICONE, ORAL Take 1 tablet by mouth three times daily. 0 Active Comment on above: Take 1 tablet by aristeo th three times daily. hydroCHLOROthiazide 25 mg oral tablet (20 sources) Thiazide Diuretic Start: 025 take 1 tablet by mouth once daily hydroCHLOROthiazide 25 mg tablet Take 1 tablet by mouth once daily. 90 tablet 3 02/12/2025 Active Start: 11-28-2013 End: 11-07-2024 take 1 tablet by mouth once daily Hydrochlorothiazide 25 mg tablet Discontinued 25 mg PO DAILY 30 May 16, 2018 6:15pm July 02, 2019 10:50am blood pressure/heart Start: 11-28-2013 End: 06-05-2020 Comment on above: Take 1 tablet by aristeo th once daily. 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 5 Each 5 10/28/2024 Active Start: 02-06-2023 insulin glargi ne (LANTUS SOLOSTAR U-100 INSULIN) 100 unit/mL (3 mL) Indications: Type 2 diabetes mellitus without complication, with long-term current use of insulin (HCC) Inject 14 Units subcutaneously daily at bedtime. 5 Each 5 02/06/2023 Active Start: 02-06-2023 insulin glargi ne (LANTUS SOLOSTAR U-100 INSULIN) 100 unit/mL (3 mL) Indications: Type 2 diabetes mellitus without complication, with long-term current use of insulin (HCC) Inject 14 Units subcutaneously daily at bedtime. 5 Each 5 02/06/2023 Active Start: 05-16-2022 End: 02-06-2023 inject 10 [IU] by subcutaneous injection once daily at bedtime insulin glargine (LANTUS SOLOSTAR U-100 INSULIN) 100 unit/mL (3 mL) Indications: Type 2 diabetes mellitus without complication, with long-term current use of insulin (HCC) Inject 10 Units subcutaneously daily at bedtime. 5 Pen 2 05/16/2022 02/06/2023 Discontinued Start: 07-27-2021 End: 02-06-2023 inject 10 [IU] by subcutaneous injection once daily at bedtime insulin glargine (LANTUS SOLOSTAR U-100 INSULIN) 100 unit/mL (3 mL) Indications: Type 2 diabetes mellitus without complication, with long-term current use of insulin (HCC) Inject 10 Units subcutaneously daily at bedtime. 5 Pen 2 05/16/2022 02/06/2023 Discontinued Start: 12-30-2020 inject 1 dose by sub cutaneous injection at bedtime Insulin Glargine Active 10 UNIT SQ AT BEDTIME December 30, 2020 8:16am states if OT too high then increases dose himself to 20 units. Start: 12-30-2020 inject 10 [IU] by jennings bcutaneous injection at bedtime Insulin Glargine Active 10 UNIT SQ AT BEDTIME December 30, 2020 8:16am Start: 12-30-2020 inject 10 [IU] by jennings bcutaneous injection at bedtime Insulin Glargine Active 10 UNIT SQ AT BEDTIME December 29, 2020 11:00pm Start: 12-30-2020 inject 10 [IU] by jennings bcutaneous injection at bedtime Insulin Glargine Active 10 UNIT SQ AT BEDTIME December 30, 2020 12:00am Start: 12-30-2020 inject 1 dose by sub cutaneous injection at bedtime Insulin Glargine Active 10 UNIT SQ AT BEDTIME December 30, 2020 12:00am states if OT too high then increases dose himself to 20 units. Start: 06-01-2017 End: 07-03-2018 inject 14 [IU] by subcutaneous injection once daily Insulin Glargine 100 UNIT/ML insulin pen Discontinued 14 U SQ DAILY June 01, 2017 12:00am July 03, 2018 11:29am Start: 06-01-2017 End: 07-03-2018 inject 20 [IU] by subcutaneous injection at bedtime Insulin Glargine 100 UNIT/ML insulin pen Discontinued 20 U SQ AT BEDTIME June 01, 2017 12:00am July 03, 2018 11:29am Start: 02-24-2014 LANTUS 100 UNI T/ML SOLN take as directed INSULIN GLARGINE [id number] Des Corrales MD Start: 02-24-2014 LANTUS 100 UNI T/ML SOLN 6 units in the am , 20 at night INSULIN GLARGINE [id number] Des Corrales MD Comment on above: Inject 10 Units subc utaneously daily at bedtime. Inject 14 Units subc utaneously daily at bedtime. Inject 16 Units subc utaneously daily at bedtime. Insulin Glargine (Lantus U-100 Insulin) 100 UNIT/ML solution (8 sources) Start: inject 10 [IU] by subcutaneous injection at bedtime Insulin Glargine (Lantus U-100 Insulin) 100 UNIT/ML solution Active 10 UNIT SQ AT BEDTIME December 30, 2020 12:00am Start: 12-30-2020 inject 10 [IU] by jennings bcutaneous injection at bedtime Insulin Glargine (Lantus U-100 Insulin) 100 UNIT/ML solution Active 10 UNIT SQ AT BEDTIME December 29, 2020 11:00pm latanoprost 0.05 mg/ml ophthalmic solution (20 sources) Prostaglandin Analog Start: 02-25-[address] 0.005 % drops Active 1 NMA OPHTHALMIC AT BEDTIME February 25, 2024 12:00am eye health Start: 12-06-2021 End: 01-16-2026 take 1 drop(s) into the eye(s) once daily at bedtime latanoprost (XALATAN) 0.005 % ophthalmic solution Use 1 drop in both eyes daily at bedtime. 7.5 mL 3 01/16/2025 01/16/2026 Active Start: 12-06-2021 take 1 drop(s) into the eye(s) once daily at bedtime latanoprost (XALATAN) 0.005 % ophthalmic solution Use 1 Drop in both eyes daily at bedtime. 2.5 mL 0 12/06/2021 Active Start: 06-08-2017 LATANOPROST 0. 005 % SOLN eye gtts as directed LATANOPROST [id number] Des Corrales MD Comment on above: Use 1 Drop in both e yes daily at bedtime. Dhowhl-Qrhokbch-Imwjrcp (Creon) 12,000-38,000 -60,000 unit capsule,delayed release(DR/EC) (3 sources) Start: 01-06-2025 Yivzax-Zvvqzrft-Zaodb se (Creon) 12,000-38,000 -60,000 unit capsule,delayed release(DR/EC) Active 2 NMA PO .COMPLEX 300 January 06, 2025 1:47pm 2 caps orally ; take 1-2 with snacks and 2-3 with meals; Start: 01-06-2025 Lipase-Proteas e-Amylase (Creon) 12,000-38,000 -60,000 unit capsule,delayed release(DR/EC) Active 2 NMA PO .COMPLEX 300 January 06, 2025 1:47pm 2 caps orally ; take 1-2 with snacks and 2-3 with meals; loratadine 10 mg oral tablet (20 sources) Start: 02-06-2024 End: 11-07-2024 take 1 tablet by mouth once daily loratadine (CLARITIN) 10 mg tablet Indications: Seasonal allergic rhinitis due to pollen Take 1 tablet by mouth once daily. 90 tablet 3 02/12/2025 Active Start: 10-16-2023 End: 02-02-2024 take 1 tablet by mouth once daily loratadine (CLARITIN) 10 mg tablet Indications: Seasonal allergic rhinitis due to pollen Take 1 tablet by mouth once daily. 30 tablet 3 10/16/2023 02/02/2024 Discontinued Start: 06-26-2023 take 1 tablet by aristeo th once daily loratadine (CLARITIN) 10 mg tablet Indications: Seasonal allergic rhinitis due to pollen Take 1 tablet by mouth once daily. 30 tablet 3 06/26/2023 Active Start: 11-14-2022 End: 05-13-2023 take 1 tablet by mouth once daily loratadine (CLARITIN) 10 mg tablet Indications: Seasonal allergic rhinitis due to pollen Take 1 tablet by mouth once daily. 30 tablet 1 05/01/2023 Active Start: 03-09-2022 End: 08-14-2022 take 1 tablet by mouth once daily loratadine (CLARITIN) 10 mg tablet Indications: Seasonal allergic rhinitis due to pollen Take 1 tablet by mouth once daily. 90 tablet 1 05/16/2022 08/14/2022 Active Start: 11-19-2021 End: 02-17-2022 take 1 tablet by mouth once daily loratadine (CLARITIN) 10 mg tablet Indications: Seasonal allergic rhinitis due to pollen Take 1 tablet by mouth once daily. 90 tablet 0 11/19/2021 02/17/2022 Active Start: 06-08-2017 LORATADINE 10 MG TABS as needed LORATADINE [id number] Des Corrales MD Start: 06-01-2017 End: 02-25-2024 take 1 capsule by mouth once daily Loratadine 10 MG capsule Discontinued 10 mg PO DAILY July 04, 2022 2:14pm February 25, 2024 11:20am allergies Comment on above: Take 1 tablet by aristeo th once daily. losartan potassium 25 mg oral tablet (20 sources) Angiotensin 2 Receptor Page Start: 03-04-2022 take 50 mg by mouth once daily Losartan Active 50 MG PO DAILY March 04, 2022 12:00am Start: 10-22-2021 End: 07-05-2024 take 1 tablet by mouth once daily Losartan 25 mg Tablet Discontinued 25 mg PO DAILY February 27, 2022 12:00am March 04, 2022 11:32am Check with primary doctor Start: 12-30-2020 take 25 mg by mouth once daily Losartan Active 25 MG PO DAILY December 30, 2020 8:20am Start: 11-28-2013 End: 12-30-2020 take 1 tablet by mouth once daily Losartan 50 mg tablet Discontinued 50 mg PO DAILY 24 08April 09, 2020 4:08pm December 30, 2020 8:21am blood pressure/heart Comment on above: Take 1 tablet by aristeo once daily. metFORMIN hydrochloride 500 mg oral tablet (20 sources) Biguanide Start: take 1 tablet by mouth twice daily at mealtime metFORMIN (GLUCOPHAGE) 500 mg tablet Take 1 tablet by mouth two times a day with meals. 180 tablet 3 02/12/2025 Active Start: 11-28-2013 End: 11-07-2024 take 1 tablet by mouth twice daily at mealtime metFORMIN (GLUCOPHAGE) 500 mg tablet Take 1 tablet by mouth two times a day with meals. 60 tablet 2 11/08/2024 Active Start: 11-28-2013 End: 03-04-2022 Comment on above: Take 1 tablet by aristeo twice daily with meals. Take 1 tablet by aristeo two times a day with meals. metoclopramide 5 mg oral tablet (3 sources) Dopamine-2 Receptor Antagonist Start: 08-13-20 take 1 tablet by mouth every eight hours as needed for nausea and vomiting Metoclopramide Hcl (Reglan) 5 mg tablet Active 5 mg PO EVERY 8 HOURS NEEDED as needed for nausea and vomiting 10 August 13, 2024 3:10am Multivitamin capsule (20 sources) take 1 capsule by mouth once daily Multivitamin capsule Take 1 capsule by mouth once daily. Active take 1 capsule by mouth once eder ly Multivitamin capsule Take 1 capsule by mouth once daily. 0 Active Comment on above: Take 1 capsule by [facility] once daily. nitroglycerin 0.4 mg sublingual tablet (20 sources) Nitrate Vasodilator Start: 03-24-2025 nitroglycerin sublingual (NITROQUICK) 0.4 mg SL tablet Dissolve 1 tablet under the tongue every 5 minutes as needed. 25 tablet 03/24/2025 Active Start: 07-15-2013 End: 03-24-2025 Comment on above: Dissolve 0.4 mg unde r the tongue every 5 minutes as needed. [place]-3 Fatty Acids-Fish Oil (10 sources) Start: 07-04-2022 take 2 capsules by mouth once daily [place]-3 Fatty Acids-Fish Oil Active 2 CAP PO DAILY July 03, 2022 11:00pm Start: 07-04-2022 take 2 capsules by m outh once daily [place]-3 Fatty Acids-Fish Oil Active 2 CAP PO DAILY July 04, 2022 12:00am [place]-3 Fatty Acids-Fish Oil ([place] 3 Fish Oil) 684-1,200 mg Capsule,Delayed Release(Dr/Ec) (2 sources) Start: 07-04-2022 take 2 capsules by mouth once daily [place]-3 Fatty Acids-Fish Oil ([place] 3 Fish Oil) 684-1,200 mg Capsule,Delayed Release(Dr/Ec) Active 2 CAP PO DAILY July 04, 2022 12:00am pravastatin sodium 20 mg oral tablet (20 sources) HMG-CoA Reductase Inhibitor Start: 02-06-2024 End: 11-07-2024 take 1 tablet by mouth once daily pravastatin (PRAVACHOL) 20 mg tablet Take 1 tablet by mouth once daily. 90 tablet 3 02/12/2025 Active Start: 10-16-2023 End: 02-02-2024 take 1 tablet by mouth once daily pravastatin (PRAVACHOL) 20 mg tablet Take 1 tablet by mouth once daily. 30 tablet 3 10/16/2023 02/02/2024 Discontinued Start: 06-26-2023 take 1 tablet by aristeo once daily pravastatin (PRAVACHOL) 20 mg tablet Take 1 tablet by mouth once daily. 30 tablet 3 06/26/2023 Active Start: 02-27-2022 End: 02-25-2024 Pravastatin 40 mg Tablet Dis continued 20 mg PO AT BEDTIME February 27, 2022 12:00am February 25, 2024 11:19am cholesterol Start: 02-27-2022 take 20 mg by mouth at bedtime Pravastatin Active 20 MG PO AT BEDTIME February 27, 2022 12:00am Start: 02-27-2022 take 60 mg by mouth at bedtime Pravastatin Active 60 MG PO AT BEDTIME February 27, 2022 12:00am Start: 11-19-2021 End: 05-01-2023 take 1 tablet by mouth once daily pravastatin (PRAVACHOL) 20 mg tablet Indications: Mixed hyperlipidemia Take 1 tablet by mouth once daily. 90 tablet 1 05/16/2022 11/07/2022 Discontinued Start: 10-03-2018 End: 11-07-2022 take 1 tablet by mouth once daily Pravastatin 40 mg tablet Discontinued 40 mg PO DAILY 24 08June 05, 2020 8:30am July 03, 2020 8:54am Start: 06-01-2017 End: 10-03-2018 take 3 tablets by mouth once daily Pravastatin 20 MG tablet Discontinued 60 mg PO DAILY November 08, 2017 5:25pm October 03, 2018 5:47pm Start: 06-01-2017 End: 10-03-2018 take 60 mg by mouth once daily Pravastatin Discontinue d 60 MG PO DAILY November 08, 2017 5:25pm October 03, 2018 5:47pm Start: 02-24-2014 End: 07-02-2020 take 1 tablet by mouth once daily Pravastatin 20 mg tablet Discontinued 20 mg PO DAILY 24 08June 05, 2020 8:30am July 02, 2020 11:41am Start: 02-24-2014 take 1.5 tablets by mouth at bedtime PRAVASTATIN SODIUM 40 MG TABS 1.5 tablets (60 mg) by mouth at bedtime. PRAVASTATIN SODIUM [id number] Des Corrales MD Comment on above: Take 1 tablet by aristeo th once daily. simethicone 80 mg chewable t ablet (14 sources) Start: 09-06-2022 Start: 03-04-2022 take 1 tablet by aristeo th three times daily after mealtime Simethicone (Gas Relief (Simethicone)) 80 mg Tablet,Chewable Active 80 MG PO THREE TIMES DAILY AFTER MEALS March 04, 2022 12:00am tamsulosin hydrochloride 0.4 mg oral capsule (20 sources) alpha-Adrenergic Page Start: 10-16-2023 End: 08-16-2024 tamsulosin (FLOMAX) 0.4 mg Indications: Lower urinary tract symptoms (LUTS) Take 1 capsule by mouth once daily. 30 minutes after the same meal each day. 90 capsule 3 02/12/2025 Active Start: 06-26-2023 tamsulosin (FL OMAX) 0.4 mg Take 1 capsule by mouth once daily. 30 minutes after the same meal each day. 30 capsule 3 06/26/2023 Active Start: 10-29-2021 End: 05-04-2023 take 1 capsule by mouth at bedtime Tamsulosin 0.4 mg Capsule Discontinued 0.4 mg PO AT BEDTIME February 27, 2022 12:00am May 04, 2023 1:29am prostate Comment on above: Take 1 capsule by mo ut once daily. 30 minutes after the same meal each day. thiamine 100 mg oral tablet (7 sources) Start: 09-08-2022 take 1 tablet by mouth at breakfast Thiamine Hcl (Vitamin B1) (Vitamin B-1) 100 mg Tablet Active 100 MG PO WITH BREAKFAST September 08, 2022 1:00am (4 sources) Start: 02-02-2023 Start: 09-08-2022 Start: 07-04-2022 Start: 12-30-2020 Completed/Discontinued Medications Medication Drug Class(es) Dates Sig (Normalized) Sig (Original) amLODIPine 10 mg oral tablet (20 sources) Dihydropyridine Calcium Channel Page Start: 06-04-2021 End: 05-16-2022 take 1 tablet by mouth once daily amLODIPine (NORVASC) 5 mg tablet Indications: Hypertension, essential Take 1 tablet by mouth once daily. 90 tablet 1 06/04/2021 05/16/2022 Discontinued (Erroneous entry) Start: 12-30-2020 End: 09-10-2021 take 5 mg by mouth once daily Amlodipine 10 MG tablet Discontinued 5 mg PO DAILY December 30, 2020 8:20am September 10, 2021 2:37pm Start: 07-03-2020 End: 05-24-2024 take 1 tablet by mouth once daily Amlodipine 10 mg tablet Discontinued 10 mg PO DAILY 90 3 June 26, 2023 2:00pm May 24, 2024 3:27pm blood pressure Start: 07-03-2020 End: 07-27-2022 take 5 mg by mouth once daily Amlodipine Discontinued 5 MG PO DAILY December 30, 2020 8:20am September 10, 2021 2:37pm Start: 05-16-2018 End: 07-03-2020 take 1 tablet by mouth once daily Amlodipine 5 mg tablet Discontinued 5 mg PO DAILY 90 3 March 16, 2020 8:29am July 03, 2020 8:49am Start: 07-15-2013 End: 12-05-2017 take 1 tablet by mouth once daily Amlodipine 5 MG tablet Discontinued 5 mg PO DAILY July 15, 2013 12:00am December 05, 2017 1:48pm blood pressure Comment on above: Take 1 tablet by aristeo once daily. Take 1 tablet by aristeo once daily. PER HEART GROUP. amoxicillin 875 mg / clavulanate 125 mg oral tablet (11 sources) Penicillin-class Antibacterial Start: 05-04-2023 End: 10-23-2023 Amoxicillin-Pot Clavulanate 875-125 mg tablet Discontinued 1 {tbl} PO TWICE A DAY 14 0 May 04, 2023 12:00am October 23, 2023 4:56pm Start: 05-04-2023 End: 10-23-2023 take 1 tablet by mouth twice daily Amoxicillin-Pot Clavulanate Discontinued 1 TABLET PO TWICE A DAY 14 May 04, 2023 12:00am October 23, 2023 4:56pm Comment on above: TWICE A DAY amylase 43705 unt / lipase [id number] unt / protease 53688 unt delayed release oral capsule (20 sources) Start: 02-08-2024 End: 01-06-2025 Otifab-Bbaevjxr-Zeokpqq (Creon) 12,000-38,000 -60,000 unit capsule,delayed release(DR/EC) Discontinued 2 NMA PO .COMPLEX 300 February 08, 2024 3:18pm January 06, 2025 1:47pm 2 caps orally ; take 1-2 with snacks and 2-3 with meals; Start: 12-01-2022 take 1 capsule by mo [facility] three times daily at mealtime bfvweo-eagyvbhm-oldxcqb (CREON) 12,000-38,000 -60,000 unit delayed release capsule Indications: Alcohol-induced chronic pancreatitis (HCC) Take 1 capsule by mouth three times daily with meals. 90 capsule 5 12/01/2022 Active Start: 09-08-2022 End: 12-23-2022 take 07405-30433 capsules by mouth at mealtime Skubql-Ryjqhwcw-Jwfiive (Creon) 12,000-38,000 -60,000 unit capsule,delayed release(DR/EC) Discontinued 1 NMA PO .TIDAC 90 30 2 September 08, 2022 1:00am December 23, 2022 1:20pm administer with meals and/or snacks Start: 09-08-2022 End: 12-23-2022 Comment on above: Take 1 capsule by mo ut three times daily with meals. baclofen 20 mg oral tablet (20 sources) gamma-Aminobutyric Acid-ergic Agonist Start: 12-04-2017 End: 07-03-2018 take 1 tablet by mouth three times daily as needed Baclofen 20 mg tablet Discontinued 20 mg PO THREE TIMES A DAY as needed December 04, 2017 12:00am July 03, 2018 11:33am Start: 06-30-2015 take 1 tablet by aristeo th three times daily as needed BACLOFEN 20 MG TABS One tablet by mouth three times daily as needed BACLOFEN [id number] Des Corrales MD ciprofloxacin 500 mg oral tablet (20 sources) Quinolone Antimicrobial Start: 12-30-2020 End: 01-01-2021 take 1 tablet by mouth twice daily Ciprofloxacin Hcl 500 MG tablet Discontinued 500 mg PO TWICE A DAY December 30, 2020 12:00am January 01, 2021 11:47am diphenhydrAMINE hydrochloride 25 mg oral capsule (12 sources) Histamine-1 Receptor Antagonist Start: 10-10-2023 End: 06-19-2024 take 1 capsule by mouth three times daily as needed Diphenhydramine Hcl (Benadryl) 25 mg capsule Discontinued 25 mg PO THREE TIMES A DAY as needed for itching 20 January 08, 2024 12:00am June 19, 2024 11:21am empagliflozin 10 mg oral tablet (17 sources) Sodium-Glucose Cotransporter 2 Inhibitor Start: 02-07-2024 End: 10-09-2024 take 1 tablet by mouth once daily Empagliflozin (Jardiance) 10 mg tablet Discontinued 10 mg PO DAILY February 25, 2024 12:00am October 09, 2024 2:41pm diabetes On Hold: Resume on 06/28/24. insulin detemir 100 unt/ml injectable solution (1 source) Insulin Analog Start: 02-24-2014 LEVEMIR 100 UNIT/ML SOLN Take as directed INSULIN DETEMIR [id number] Lainey Parr RN lactulose 667 mg/ml oral solution (20 sources) Osmotic Laxative Start: 04-22-2021 End: 06-09-2023 take 10 g by mouth once daily Lactulose 10 gram/15 mL solution Discontinued 10 g PO DAILY 473 0 January 13, 2022 1:40pm February 27, 2022 4:39pm levETIRAcetam 500 mg oral tablet (20 sources) Start: 11-09-2018 End: 02-13-2025 take 1 tablet by mouth twice daily Levetiracetam 500 mg tablet Discontinued 500 mg PO TWICE A DAY 60 2 August 16, 2023 6:27pm October 23, 2023 4:57pm seizures Start: 11-09-2018 End: 10-06-2020 Levetiracetam 500 MG tablet Discontinued 250 mg PO TWICE A DAY November 09, 2018 1:00am October 06, 2020 1:11pm seizure Start: 11-09-2018 End: 10-06-2020 take 250 mg by mouth twice daily Levetiracetam Discontinued 250 MG PO TWICE A DAY November 09, 2018 1:00am October 06, 2020 1:11pm Comment on above: Take 1 tablet by aristeo th twice daily. Per Dr. Burnett levOCARNitine 330 mg oral tablet (20 sources) Carnitine Analog Start: 10-24-19 take 660 mg by mouth twice daily at mealtime Levocarnitine Active 660 MG PO TWICE A DAY 120 October 24, 2023 1:00am must administer with a meal/food Start: 10-24-2023 take 660 mg by mouth twice daily at mealtime Levocarnitine Active 660 MG PO TWICE A DAY 120 October 24, 2023 12:00am must administer with a meal/food Start: 10-23-2023 End: 10-24-2023 take 1 capsule by mouth twice daily at mealtime Levocarnitine Tartrate 500 mg capsule Discontinued 500 mg PO TWICE A DAY 60 6 October 23, 2023 1:00am October 24, 2023 10:17am must administer with a meal/food Start: 10-23-2023 End: 10-24-2023 take 500 mg by mouth twice daily at mealtime Levocarnitine Tartrate Discontinued 500 MG PO TWICE A DAY 60 October 23, 2023 1:00am October 24, 2023 10:17am must administer with a meal/food Start: 09-28-2022 End: 04-18-2024 take 1 tablet by mouth twice daily at mealtime Levocarnitine 330 mg tablet Discontinued 660 mg PO TWICE A DAY 120 7 October 24, 2023 1:00am April 18, 2024 3:16pm must administer with a meal/food Comment on above: Take 330 mg by mouth twice daily. lidocaine 0.05 mg/mg medicated patch (9 sources) Antiarrhythmic, Amide Local Anesthetic End: 2 apply 1 dose transdermal route every twenty-four hours lidocaine (LIDODERM) 5 % Apply 1 Patch as directed every 24 hours. 0 05/16/2022 Discontinued Comment on above: Apply 1 Patch as dir ected every 24 hours. magnesium oxide 400 mg oral tablet (20 sources) Start: 8 End: 4 take 1 tablet by mouth twice daily Magnesium Oxide 400 mg (241.3 mg magnesium) tablet Discontinued 400 mg PO TWICE A DAY 60 11 April 09, 2020 4:08pm February 27, 2022 4:39pm Start: 06-01-2017 End: 05-16-2018 take 1 capsule by mouth once daily Magnesium Oxide 500 MG capsule Discontinued 500 mg PO DAILY June 01, 2017 12:00am May 16, 2018 6:08pm Start: 02-26-2014 take 1 tablet by aristeo twice daily MAGNESIUM OXIDE 400 MG TABS One tablet by mouth twice daily MAGNESIUM OXIDE [id number] Des Corrales MD Comment on above: Take 1 tablet by aristeo th twice daily. TAKE 1 TABLET BY ARISTEO TWICE A DAY Take 1 tablet by aristeo th two times a day. meloxicam 7.5 mg oral tablet (2 sources) Nonsteroidal Anti-inflammatory Drug Start: 4 End: 5 take 1 tablet by mouth once daily MOBIC 7.5 MG TABS One tablet by mouth daily MELOXICAM [id number] Des Corrales MD naproxen 500 mg oral tablet (20 sources) Nonsteroidal Anti-inflammatory Drug Start: 1 End: 3 take 1 tablet by mouth twice daily as needed for pain Naproxen 500 mg tablet Discontinued 500 mg PO TWICE A DAY as needed for Pain September 06, 2022 1:00am December 23, 2022 12:51pm Start: 06-30-2015 take 1 tablet by aristeo twice daily as needed NAPROSYN 500 MG TABS One tablet by mouth twice daily as needed NAPROXEN [id number] Des Corrales MD Comment on above: Take 1 tablet by aristeo th twice daily with meals. As needed for pain Take 1 tablet by aristeo th twice daily as needed for pain. As needed for pain ondansetron 4 mg disintegrat ing oral tablet (20 sources) Serotonin-3 Receptor Antagonist Start: 12-14-2022 Start: 03-07-2022 End: 01-08-2024 take 1 tablet by mouth every six hours as needed for nausea and vomiting Ondansetron 4 mg tablet,disintegrating Discontinued 4 mg PO EVERY 6 HOURS as needed for nausea and vomiting 12 0 November 20, 2023 1:00am January 08, 2024 11:14am Start: 03-07-2022 End: 08-13-2024 take 1 tablet by mouth three times daily as needed for nausea and vomiting Ondansetron 4 mg tablet,disintegrating Discontinued 4 mg PO THREE TIMES A DAY as needed for nausea and vomiting 21 0 January 07, 2024 4:43am August 13, 2024 1:28am Start: 03-07-2022 End: 08-13-2024 take 1 tablet by mouth every eight hours as needed for nausea Ondansetron 4 mg tablet,disintegrating Discontinued 4 mg PO EVERY 8 HOURS NEEDED as needed for Nausea 10 0 February 08, 2024 12:00am February 25, 2024 11:20am oxyCODONE hydrochloride 5 mg oral tablet (20 sources) Opioid Agonist Start: 06-21-2024 End: 08-13-2024 take 1 tablet by mouth twice daily at mealtime as needed for pain Oxycodone 5 mg Tablet Discontinued 5 mg PO TWICE DAILY WITH MEALS as needed for Pain Score 4-10 10 3 0 June 21, 2024 August 13, 2024 1:29am Chronic pancreatitis Other chronic pancreatitis Start: 02-08-2024 End: 04-04-2024 take 1 tablet by mouth every six hours as needed for pain Oxycodone 5 mg tablet Discontinued 5 mg PO EVERY 6 HOURS as needed for pain 12 3 0 February 08, 2024 April 04, 2024 1:53pm Acute epigastric pain Epigastric pain Start: 01-08-2024 End: 04-04-2024 take 1 capsule by mouth every six hours as needed for pain Oxycodone 5 mg capsule Discontinued 5 mg PO EVERY 6 HOURS as needed for pain 20 5 0 January 08, 2024 April 04, 2024 1:53pm Acute on chronic pancreatitis Acute pancreatitis without necrosis or infection, unspecified Other chronic pancreatitis Start: 08-09-2023 End: 11-07-2023 take 1 capsule by mouth every six hours as needed for pain Oxycodone 5 mg capsule Discontinued 5 mg PO EVERY 6 HOURS as needed for pain 12 3 0 August 09, 2023 November 07, 2023 9:25am Pancreatitis Acute pancreatitis without necrosis or infection, unspecified Start: 05-04-2023 End: 11-07-2023 take 1 tablet by mouth every six hours as needed for pain Oxycodone 5 mg tablet Discontinued 5 mg PO EVERY 6 HOURS as needed for pain 4 1 0 May 04, 2023 November 07, 2023 9:25am Abdominal pain Unspecified abdominal pain Start: 12-02-2022 End: 12-15-2022 take 1 tablet by mouth every six hours as needed for pain Oxycodone 5 mg tablet Discontinued 5 mg PO EVERY 6 HOURS as needed for pain 12 3 0 December 02, 2022 December 15, 2022 10:58am Acute pancreatitis Acute pancreatitis without necrosis or infection, unspecified Start: 04-30-2020 End: 05-03-2020 take 1 tablet by mouth every six hours as needed for pain Oxycodone 5 MG tablet Discontinued 5 mg PO EVERY 6 HOURS NEEDED as needed for Pain Or Fever 12 3 0 April 30, 2020 May 02, 2020 12:00am May 03, 2020 12:03am Acute pancreatitis Acute pancreatitis without necrosis or infection, unspecified Start: 01-07-2019 End: 01-12-2019 take 1 tablet by mouth every eight hours as needed for pain Oxycodone 5 MG tablet Discontinued 5 mg PO EVERY 8 HOURS NEEDED as needed for Mod-Severe Pain (4-1010) 15 5 0 January 07, 2019 7:54am January 11, 2019 12:00am January 12, 2019 12:09am Start: 01-07-2019 End: 01-12-2019 pantoprazole 40 mg delayed release oral tablet (20 sources) Proton Pump Inhibitor Start: 11-19-2021 End: 11-07-2024 take 1 tablet by mouth once daily Pantoprazole (Protonix) 40 mg tablet,delayed release (DR/EC) Discontinued 40 mg PO DAILY 30 0 October 10, 2023 1:00am January 08, 2024 11:14am Start: 09-03-2019 End: 07-03-2020 take 1 tablet by mouth twice daily Pantoprazole 40 MG tablet Discontinued 40 mg PO TWICE A DAY 90 0 September 03, 2019 9:13am July 03, 2020 8:50am Start: 06-07-2019 End: 07-03-2020 take 1 tablet by mouth once daily Pantoprazole 40 MG tablet Discontinued 40 mg PO DAILY June 07, 2019 12:00am September 03, 2019 9:13am Comment on above: Take 1 tablet by aristeo once daily. phenylephrine hydrochloride 25 mg/ml ophthalmic solution (3 sources) alpha-1 Adrenergic Agonist Start: 01-16-2024 End: 01-16-2024 PHENYLephrine 2.5 % 1 Drop (AK-DILATE, CRUZ-SYNEPHRINE) Start: 02-21-2023 End: 02-21-2023 PHENYLephrine 2.5 % 1 Drop ( AK-DILATE, CRUZ-SYNEPHRINE) predniSONE 20 mg oral tablet (11 sources) Start: 12-02-2022 End: 02-06-2023 take 1 tablet by mouth twice daily predniSONE (DELTASONE) 20 mg tablet Indications: Alcohol-induced chronic pancreatitis (HCC) Take 1 tablet by mouth twice daily. 60 tablet 0 12/02/2022 02/06/2023 Discontinued (Course of therapy completed) Start: 12-02-2022 take 40 mg by mouth once daily Prednisone Active 40 MG PO DAILY 60 December 02, 2022 1:00am Comment on above: Take 1 tablet by aristeo twice daily. promethazine hydrochloride 25 mg oral tablet (10 sources) Phenothiazine Start: 04-30-20 End: 11-07-19 take 1 tablet by mouth every six hours as needed for nausea Promethazine 25 mg tablet Discontinued 25 mg PO EVERY 6 HOURS NEEDED as needed for Nausea 10 April 30, 2023 12:00am November 07, 2023 9:26am proparacaine hydrochloride 5 mg/ml ophthalmic solution (3 sources) Local Anesthetic Start: 01-16-20 End: 01-16-20 proparacaine 0.5 % 1 Drop (ALCAINE) Start: 02-21-2023 End: 02-21-2023 proparacaine 0.5 % 1 Drop (A LCAINE) SOFT LENS RINSE-STORE SOLUTI ON (SALINE MISC) (20 sources) End: 10-24-2023 SOFT LENS RINSE-STORE SOLUTI ON (SALINE MISC) 10/24/2023 Discontinued SOFT LENS RINSE- STORE SOLUTION (SALINE MISC) traMADol hydrochloride 50 mg oral tablet (20 sources) Opioid Agonist Start: 09-03-2019 End: 09-13-2019 Tramadol 50 MG tablet Discontinued 50 mg PO EVERY 8 HOURS NEEDED as needed for Abdominal pain 6-10 out of 10 24 07September 03, 2019 9:11am September 12, 2019 1:00am September 13, 2019 1:10am Start: 12-04-2017 End: 07-03-2018 take 1 tablet by mouth twice daily as needed Tramadol 50 mg tablet Discontinued 50 mg PO TWICE A DAY as needed December 04, 2017 12:00am July 03, 2018 11:31am Start: 12-04-2017 End: 07-03-2018 Start: 06-30-2015 take 1 tablet by aristeo twice daily as needed TRAMADOL HCL 50 MG TABS One tablet by mouth twice daily as needed TRAMADOL HCL [id number] Des Corrales MD travoprost 0.04 mg/ml ophthalmic solution (2 sources) Prostaglandin Analog Start: 02-24-2014 End: 06-08-2017 TRAVATAN Z 0.004 % SOLN Take as directed TRAVOPROST [id number] Lainey Parr RN traZODone hydrochloride 50 mg oral tablet (20 sources) Serotonin Reuptake Inhibitor Start: 02-15-2014 End: 03-10-2022 take 1 tablet by mouth at bedtime Trazodone 50 MG tablet Discontinued 50 mg PO AT BEDTIME February 15, 2014 12:00am July 03, 2018 11:33am Comment on above: Take 1 tablet by aristeo daily at bedtime. tropicamide 10 mg/ml ophthalmic solution (3 sources) Anticholinergic Start: 01-16-2024 End: 01-16-2024 tropicamide 1 % 1 Drop (MYDRIACYL) Start: 02-21-2023 End: 02-21-2023 tropicamide 1 % 1 Drop (MYDR IACYL) ursodiol 250 mg oral tablet (20 sources) Bile Acid Start: 12-09-2022 End: 10-10-2024 take 1 tablet by mouth twice daily Ursodiol 250 mg tablet Discontinued 250 mg PO TWICE A DAY 180 2 January 29, 2024 8:04am October 10, 2024 4:54pm Start: 04-15-2022 End: 09-21-2022 take 1 tablet by mouth twice daily Ursodiol 250 mg tablet Discontinued 250 mg PO TWICE A DAY 180 1 April 19, 2022 4:05pm September 21, 2022 1:56pm liver fibrosis Comment on above: Take 1 tablet by aristeo th twice daily. Per [facility]. Problems Active Problems Problem Classification Problem Date Documented Da te Episodic/Chronic Abdominal pain (20 sources) Abdominal pain; Translations: [Unspecified abdominal pain] Onset: 4 Episodic Acute and unspecified renal failure (20 sources) Injury of kidney; Translations: [Acute kidney failure, unspecified] 07-12-2022 Episodic Alcohol-related disorders (20 sources) Alcoholic fatty liver; Translations: [Alcoholic fatty liver] Onset: 2 Chronic Anxiety disorders (20 sources) Posttraumatic stress disorder; Translations: [Post-traumatic stress disorder, unspecified] Onset: 2 Chronic Cancer of prostate (20 sources) Malignant tumor of prostate; Translations: [Malignant neoplasm of prostate] Onset: 1 05-16-2022 Chronic Cardiac dysrhythmias (20 sources) Palpitations; Translations: [Palpitations] Onset: 4 02-26-2014 Episodic Cataract (4 sources) Bilateral senile combined form cataracts of eyes; Translations: [Combined forms of age-related cataract, bilateral] Onset: 5 Chronic Conditions associated with dizziness or vertigo (1 source) Dizziness; Translations: [Dizziness and giddiness] Episodic Coronary atherosclerosis and other heart disease (20 sources) Coronary arteriosclerosis; Translations: [Coronary atherosclerosis] Onset: 2 02-24-2014 Chronic Deficiency and other anemia (1 source) Anemia, unspecified; Translations: [Anemia, unspecified] Onset: 5 Episodic Diabetes mellitus with complications (20 sources) Hyperglycemia due to type 2 diabetes mellitus; Translations: [Type 2 diabetes mellitus with hyperglycemia] Onset: 4 12-14-2022 Chronic Diabetes mellitus without complication (20 sources) Diabetes mellitus; Translations: [Type 2 diabetes mellitus without complication] Onset: 4 Resolved: 2 02-24-2014 Chronic Diabetes mellitus without complication (20 sources) Hyperglycemia; Translations: [Hyperglycemia, unspecified] 03-15-2022 Episodic Diseases of white blood cells (20 sources) Leukocytosis; Translations: [Elevated white blood cell count, unspecified] Chronic Disorders of lipid metabolism (20 sources) Mixed hyperlipidemia; Translations: [Mixed hyperlipidemia] Onset: 1 12-01-2020 Chronic Epilepsy; convulsions (20 sources) Epilepsy, not refractory; Translations: [Epilepsy, unspecified, not intractable, without status epilepticus] Onset: 1 Chronic Esophageal disorders (20 sources) Gastroesophageal reflux disease without esophagitis; Translations: [Gastro-esophageal reflux disease without esophagitis] Onset: 1 12-01-2020 Chronic Essential hypertension (20 sources) Hypertensive disorder; Translations: [Essential hypertension] Onset: 2 10-28-2011 Chronic Fluid and electrolyte disorders (20 sources) Dehydration; Translations: [Dehydration] Episodic Gastrointestinal hemorrhage (20 sources) Lower gastrointestinal hemorrhage; Translations: [Gastrointestinal hemorrhage, unspecified] 09-02-2019 Episodic Glaucoma (20 sources) Ocular hypertension, unspecified eye; Translations: [Ocular hypertension] Onset: 2 10-05-2021 Chronic Immunizations and screening for infectious disease (4 sources) Vaccination needed; Translations: [Encounter for immunization] Episodic Mycoses (1 source) Onychomycosis due to dermatophyte ; Translations: [Tinea unguium] 05-19-2023 Episodic Nausea and vomiting (20 sources) Nausea; Translations: [Nausea] 11-29-2022 Episodic Nonspecific chest pain (4 sources) Chest pain, unspecified; Translations: [Chest pain] Onset: 2 10-28-2011 Episodic Nutritional deficiencies (20 sources) Vitamin D deficiency; Translations: [Vitamin D deficiency, unspecified] Onset: 1 12-01-2020 Chronic Open wounds of head; neck; and trunk (1 source) Laceration of forehead; Translations: [Laceration without foreign body of other part of head, initial encounter] Episodic Other and ill-defined cerebrovascular disease (20 sources) Cerebrovascular disease; Translations: [Cerebrovascular disease, unspecified] 02-28-2022 Chronic Other circulatory disease (1 source) Abnormal [...] cupping; Translations: [Glaucomatous optic atrophy, bilateral] Onset: 2 10-05-2021 Chronic Other eye disorders (1 source) Glaucomatous optic atrophy, bilateral; 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 of both eyes] Onset: 2 Chronic Other eye disorders (1 source) Meibomian gland dysfunction of bilateral eyes; Translations: [Meibomian gland dysfunction right eye, upper and lower eyelids] Episodic Other gastrointestinal disorders (14 sources) History of pancreatitis; Translations: [Personal history of other diseases of the digestive system] 12-26-2022 Episodic Other gastrointestinal disorders (10 sources) Constipation; Translations: [Constipation, unspecified] 05-12-2023 Episodic Other injuries and conditions due to external causes (20 sources) Muscle strain; Translations: [Other injury of unspecified body region, initial encounter] 05-01-2020 Episodic Other injuries and conditions due to external causes (1 source) Injury of head; Translations: [Unspecified injury of head, initial encounter] Episodic Other liver diseases (20 sources) Steatosis of liver; Translations: [Fatty (change of) liver, not elsewhere classified] 03-25-2022 Chronic Other liver diseases (6 sources) Fatty (change of) liver, not elsewhere classified; Translations: [Other chronic nonalcoholic liver disease] Chronic Other liver diseases (20 sources) High lipase level in serum; Translations: [Abnormal levels of other serum enzymes] 11-09-2022 Episodic Other lower respiratory disease (2 sources) Dyspnea; Translations: [Shortness of breath] 02-05-2024 Episodic Other nervous system disorders (20 sources) Polyneuropathy; Translations: [Polyneuropathy, unspecified] 08-17-2022 Chronic Other nervous system disorders (15 sources) Polyneuropathy, unspecified; Translations: [Unspecified hereditary and idiopathic peripheral neuropathy] Chronic Other nutritional; endocrine; and metabolic disorders (11 sources) Hyperammonemia; Translations: [Disorder of urea cycle metabolism, unspecified] 10-23-2023 Chronic Other nutritional; endocrine; and metabolic disorders (20 sources) Hypophosphatemia; Translations: [Other disorders of phosphorus metabolism] 03-12-2022 Chronic Other nutritional; endocrine; and metabolic disorders (5 sources) Other disorders of phosphorus metabolism; Translations: [Disorders of phosphorus metabolism] Chronic Other nutritional; endocrine; and metabolic disorders (4 sources) Disorder of urea cycle metabolism, unspecified; Translations: [Disorders of urea cycle metabolism] 10-23-2023 Chronic Other nutritional; endocrine; and metabolic disorders (16 sources) Hypomagnesemia; Translations: [Hypomagnesemia] Onset: 4 08-16-2024 Chronic Other nutritional; endocrine; and metabolic disorders (1 source) Hypomagnesemia; Translations: [Hypomagnesemia] Onset: 4 Chronic Other nutritional; endocrine; and metabolic disorders (14 sources) H/O: diabetes mellitus; Translations: [Personal history of other endocrine, nutritional and metabolic disease] 12-26-2022 Episodic Other screening for suspected conditions (not mental disorders or infectious disease) (20 sources) Electrocardiogram abnormal; Translations: [Raised prostate specific antigen] Onset: 2 Resolved: 2 10-28-2011 Episodic Other upper respiratory disease (20 sources) Allergic rhinitis due to pollen; Translations: [Allergic rhinitis due to pollen] Onset: 1 12-01-2020 Chronic Other upper respiratory disease (1 source) Allergic rhinitis due to pollen; Translations: [Seasonal allergic rhinitis due to pollen] Onset: 1 Chronic Other upper respiratory infections (2 sources) Sore throat symptom; Translations: [Acute pharyngitis, unspecified] Episodic Pancreatic disorders (not diabetes) (20 sources) Recurrent pancreatitis; Translations: [Recurrent pancreatitis] Onset: 10-08-21-2022 Chronic Pneumonia (except that caused by tuberculosis or sexually transmitted disease) (10 sources) Left lower zone pneumonia; Translations: [Pneumonia, unspecified organism] 05-12-2023 Episodic Residual codes; unclassified (20 sources) Family history of aneurysm of artery; Translations: [Family history of ischemic heart disease and other diseases of the circulatory system] 02-28-2022 Episodic Residual codes; unclassified (18 sources) Patient encounter status; Translations: [Procedure and treatment not carried out due to patient leaving prior to being seen by health care provider] 11-09-2022 Episodic Residual codes; unclassified (10 sources) Current drinker; Translations: [Other specified health status] 04-30-2023 Episodic Retinal detachments; defects; vascular occlusion; and retinopathy (2 sources) Hypertensive retinopathy; Translations: [Hypertensive retinopathy, bilateral] Chronic Spondylosis; intervertebral disc disorders; other back problems (20 sources) Degeneration of thoracic intervertebral disc; Translations: [Other intervertebral disc degeneration, thoracic region] Onset: Resolved: 10-21-2014 Chronic Past or Other Problems Problem Classification Problem Date Documented Da te Episodic/Chronic Blindness and vision defects (9 sources) Bilateral myopia of eyes; Translations: [Myopia, bilateral] Onset: 01-16-2025 01-16-2024 Episodic Chronic obstructive pulmonary disease and bronchiectasis (3 sources) Bronchitis; Translations: [Bronchitis, not specified as acute or chronic] Onset: 07-22-2024 07-03-2024 Episodic Genitourinary symptoms and ill-defined conditions (20 sources) Lower urinary tract symptoms; Translations: [Unspecified symptoms and signs involving the genitourinary system] Onset: 10-15-2021 Episodic Hemorrhoids (20 sources) Bleeding hemorrhoids; Translations: [Unspecified hemorrhoids] Onset: 03-24-2025 09-02-2019 Episodic Other aftercare (1 source) assisted (current) use of insulin; Translations: [Type 2 diabetes mellitus without complication, with long-term current use of insulin (HCC)] Onset: 11-17-2020 Episodic Other gastrointestinal disorders (1 source) Constipation, unspecified; Translations: [Constipation, unspecified constipation type] Onset: 03-24-2025 Episodic Other non-traumatic joint disorders (20 sources) Pain in right hip joint; Translations: [Pain in right hip] Onset: 01-19-2015 Resolved: 05-16-2022 01-19-2015 Episodic Other non-traumatic joint disorders (20 sources) Hip pain; Translations: [Pain in left hip] Onset: 01-19-2015 Resolved: 05-16-2022 Episodic Pancreatic disorders (not diabetes) (20 sources) Pancreatitis; Translations: [Acute pancreatitis without necrosis or infection, unspecified] Onset: 07-13-2022 Episodic Screening and history of mental health and substance abuse codes (1 source) Encounter for screening for depression; Translations: [Screening for depression] Onset: 02-12-2025 Episodic Spondylosis; intervertebral disc disorders; other back problems (20 sources) Cervical radiculopathy; Translations: [Radiculopathy, cervical region] Onset: 10-21-2014 Resolved: 10-24-2024 10-21-2014 Episodic Sprains and strains (20 sources) Strain of neck muscle; Translations: [Strain of muscle, fascia and tendon at neck level, initial encounter] Onset: 10-21-2014 Resolved: 03-10-2022 10-21-2014 Episodic Unclassified (20 sources) NO SHOW Onset: 06-05-2015 Resolved: 03-10-2022 06-05-2015 Results Test Name Value Interpretation Reference Range Facility CA 19-9 Serial Monitoron CA 19-9 15 U/mL Normal 0-35 [facility] Comment on above: Result Comment: [employer] Electrochemiluminescence Immunoassay (ECLIA) Values obtained with different assay methods or kits cannot be used interchangeably. Results cannot be interpreted as absolute evidence of the presence or absence of malignant disease. Performed at: [facility] [id number] Roller Stainer: Andre Doty PhD, Phone: [phone] Performed By: #### L 3100.0624, L101.9900, L500.4050, L100.0100, [id number] #### [facility] [place], [address] CBC W/Diff, Automatedon 11-0 Absolute Lymph 4.20 X10 3/uL Normal 0.83-4.51 [facility] Comment on above: Performed By: #### L 3100.5017, L101.9900, L500.4050, L100.0100, [id number] #### [facility] [address] [place], [address] Absolute Neut 6.4 X10 3/uL Normal 2.0-7.7 [facility] Comment on above: Performed By: #### L 3100.5017, L101.9900, L500.4050, L100.0100, [id number] #### [facility] [address] [place], [address] Basophils/100 WBC (Bld) 0.6 % Normal 0-1 [facility] Comment on above: Performed By: #### L 3100.5017, L101.9900, L500.4050, L100.0100, [id number] #### [facility] [address] [place], [address] Eosinophils/100 WBC (Bld) 1.5 % Normal 0-5 [facility] Comment on above: Performed By: #### L 3100.5017, L101.9900, L500.4050, L100.0100, [id number] #### [facility] [address] [place], [address] Erythrocyte distribution width (RBC) [Ratio] 12.0 % Normal 11.6-14.6 [facility] Comment on above: Performed By: #### L 3100.5017, L101.9900, L500.4050, L100.0100, [id number] #### [facility] [address] [place], [address] Hematocrit (Bld) [Volume fraction] 42.1 % Normal 40-54 [facility] Comment on above: Performed By: #### L 3100.5017, L101.9900, L500.4050, L100.0100, [id number] #### [facility] [address] [place], [address] Hemoglobin (Bld) [Mass/Vol] 14.4 g/dL Normal 13.0-16.5 [facility] Comment on above: Performed By: #### L 3100.5017, L101.9900, L500.4050, L100.0100, [id number] #### [facility] [address] [place], [address] IG% 0.300 Normal 0.0-0.9 [facility] Comment on above: Result Comment: IG% - Immature Granulocytes (promyelocytes, myelocytes and metamyelocytes) > 1% indicates that a LEFT SHIFT is Present. Performed By: #### L 3100.5017, L101.9900, L500.4050, L100.0100, [id number] #### [facility] [address] [place], [address] Lymphocytes/100 WBC (Bld) 36.5 % Normal 19-41 [facility] Comment on above: Performed By: #### L 3100.5017, L101.9900, L500.4050, L100.0100, [id number] #### [facility] [address] [place], [address] MCH (RBC) [Entitic mass] 31.2 pg Normal 27.0-32.0 [facility] Comment on above: Performed By: #### L 3100.5017, L101.9900, L500.4050, L100.0100, [id number] #### [facility] [address] [place], [address] MCHC (RBC) [Mass/Vol] 34.2 g/dL Normal 32-36 [facility] Comment on above: Performed By: #### L 3100.5017, L101.9900, L500.4050, L100.0100, [id number] #### [facility] [address] [place], [address] MCV (RBC) [Entitic vol] 91.3 fL Normal 80-94 [facility] Comment on above: Performed By: #### L 3100.5017, L101.9900, L500.4050, L100.0100, [id number] #### [facility] [address] [place], [address] Monocytes/100 WBC (Bld) 5.8 % Normal 0-10 [facility] Comment on above: Performed By: #### L 3100.5017, L101.9900, L500.4050, L100.0100, [id number] #### [facility] [address] [place], [address] Neutrophils/100 WBC (Bld) 55.3 % Normal 47-70 [facility] Comment on above: Performed By: #### L 3100.5017, L101.9900, L500.4050, L100.0100, [id number] #### [facility] [address] [place], [address] Nucleated RBC (Bld) [#/Vol] 0 10*3/uL Normal 0-5 [facility] Comment on above: Performed By: #### L 3100.5017, L101.9900, L500.4050, L100.0100, [id number] #### [facility] [address] [place], [address] Platelet mean volume (Bld) [Entitic vol] 10.3 fL Normal 6.2-12.0 [facility] Comment on above: Performed By: #### L 3100.5017, L101.9900, L500.4050, L100.0100, [id number] #### [facility] [address] [place], [address] Platelets (Bld) [#/Vol] 241 10*3/uL Normal 150-450 [facility] Comment on above: Performed By: #### L 3100.5017, L101.9900, L500.4050, L100.0100, [id number] #### [facility] [address] [place], [address] RBC (Bld) [#/Vol] 4.61 10*6/uL Normal 4.6-6.2 [facility] Comment on above: Performed By: #### L 3100.5017, L101.9900, L500.4050, L100.0100, [id number] #### [facility] [address] [place], [address] RDW SD 40.3 fl Normal 35.1-43.9 [facility] Comment on above: Performed By: #### L 3100.5017, L101.9900, L500.4050, L100.0100, [id number] #### [facility] [address] [place], [address] WBC (Bld) [#/Vol] 11.5 10*3/uL High 4.4-11.0 [facility] Comment on above: Performed By: #### L 3100.5017, L101.9900, L500.4050, L100.0100, [id number] #### [facility] [address] [place], [address] CRPon 08-01-2025 C-REACTIVE PROT < 3.00 Normal 0.0-3.0 [facility] Comment on above: Performed By: #### L 3100.5017, L101.9900, L500.4050, L100.0100, [id number] #### [facility] [address] [place], [address] Comprehensive Metabolic Prof ilon 08-01-2025 Albumin [Mass/Vol] 4.6 g/dL Normal 3.4-4.8 [facility] Comment on above: Performed By: #### L 3100.5017, L101.9900, L500.4050, L100.0100, [id number] #### [facility] [address] [place], [address] Albumin/Globulin [Mass ratio] 1.5 {ratio} Normal 0.9-2.4 [facility] Comment on above: Performed By: #### L 3100.5017, L101.9900, L500.4050, L100.0100, [id number] #### [facility] [address] [place], [address] ALK PHOS 72 U/L Normal 40-129 [facility] Comment on above: Performed By: #### L 3100.5017, L101.9900, L500.4050, L100.0100, [id number] #### [facility] [address] [place], [address] ALT [Catalytic activity/Vol] 13 U/L Normal <=46 [facility] Comment on above: Performed By: #### L 3100.5017, L101.9900, L500.4050, L100.0100, [id number] #### [facility] [address] [place], [address] AST [Catalytic activity/Vol] 13 U/L Normal <=37 [facility] Comment on above: Performed By: #### L 3100.5017, L101.9900, L500.4050, L100.0100, [id number] #### [facility] [address] [place], [address] Bilirubin [Mass/Vol] 1.01 mg/dL Normal 0.00-1.30 [facility] Comment on above: Performed By: #### L 3100.5017, L101.9900, L500.4050, L100.0100, [id number] #### [facility] [address] [place], [address] BUN/CRE 10.5 RATIO Normal 10-20 [facility] Comment on above: Performed By: #### L 3100.5017, L101.9900, L500.4050, L100.0100, [id number] #### [facility] [address] [place], [address] Calcium [Mass/Vol] 10.2 mg/dL Normal 7.6-11.0 [facility] Comment on above: Performed By: #### L 3100.5017, L101.9900, L500.4050, L100.0100, [id number] #### [facility] [address] [place], [address] Chloride [Moles/Vol] 96 mmol/L Low 98-108 [facility] Comment on above: Performed By: #### L 3100.5017, L101.9900, L500.4050, L100.0100, [id number] #### [facility] [address] [place], [address] CO2 [Moles/Vol] 23.1 mmol/L Normal 21.0-32.0 [facility] Comment on above: Performed By: #### L 3100.5017, L101.9900, L500.4050, L100.0100, [id number] #### [facility] [address] [place], [address] Creatinine [Mass/Vol] 1.02 mg/dL Normal 0.70-1.20 [facility] Comment on above: Performed By: #### L 3100.5017, L101.9900, L500.4050, L100.0100, [id number] #### [facility] [address] [place], [address] GAP 15 Normal 5-15 [facility] Comment on above: Performed By: #### L 3100.5017, L101.9900, L500.4050, L100.0100, L501.6710 #### [facility] [address] [place], [address] GFR/1.73 sq M.predicted among non-blacks MDRD (S/P/Bld) [Vol rate/Area] 84 mL/min/{1.73_m2} Normal >60 [facility] Comment on above: Result Comment: mL/m in/1.73m2 CKD-EPI Creatinine Equation (2020) Performed By: #### L 3100.5017, L101.9900, L500.4050, L100.0100, L501.6710 #### [facility] [address] [place], [address] Globulin (S) [Mass/Vol] 3.0 g/dL Normal 2.2-4.2 [facility] Comment on above: Performed By: #### L 3100.5017, L101.9900, L500.4050, L100.0100, L501.6710 #### [facility] [address] [place], [address] Glucose [Mass/Vol] 228 mg/dL High 70-99 [facility] Comment on above: Performed By: #### L 3100.5017, L101.9900, L500.4050, L100.0100, L501.6710 #### [facility] [address] [place], [address] Potassium [Moles/Vol] 3.5 mmol/L Normal 3.3-5.1 [facility] Comment on above: Performed By: #### L 3100.5017, L101.9900, L500.4050, L100.0100, L501.6710 #### [facility] [address] [place], [address] Sodium [Moles/Vol] 134 mmol/L Normal 133-145 [facility] Comment on above: Performed By: #### L 3100.5017, L101.9900, L500.4050, L100.0100, L501.6710 #### [facility] [address] [place], [address] T PROT 7.6 g/dL Normal 5.9-8.4 [facility] Comment on above: Performed By: #### L 3100.5017, L101.9900, L500.4050, L100.0100, L501.6710 #### [facility] [address] [place], [address] Urea nitrogen [Mass/Vol] 11 mg/dL Normal 4-19 [facility] Comment on above: Performed By: #### L 3100.5017, L101.9900, L500.4050, L100.0100, L501.6710 #### [facility] [address] [place], [address] Erythrocyte Sed Rateon 08-01 SED RATE 12 mm/hr Normal 0-20 [facility] Comment on above: Performed By: #### L 3100.5017, L101.9900, L500.4050, L100.0100, L501.6710 #### [facility] [address] [place], [address] Gastroenterology Visit Repor ton 08-01-2025 Gastroenterology Visit Report [facility] [address] [place] [address] OFFICE VISIT Date of Service: 08/01/25 MR#: [id number] Acct: [id number] Name: BRONSON WELLER Rep #: [id number] : 1965 Provider: Taras Santamaria DO Age/Sex: 60/M Location: [facility] Status: Signed Intake Vital Signs 03/16/25 18:28 Height 5 ft 9 in Intake Visit Reasons: 4 M FU Chief Complaint: Allergies Iodinated Contrast Media Allergy (Mild, Verified 03/16/25 18:30) Rash hydromorphone (From Dilaudid) Allergy (Verified 03/16/25 18:30) Itching lisinopril Allergy (Verified 03/16/25 18:30) Angioedema cyclobenzaprine Adverse Reaction (Severe, Verified 03/16/25 18:30) Skin crawling hydrocodone bitartrate (From Vicodin) Adverse Reaction (Verified 03/16/25 18:30) Itching morphine Adverse Reaction (Verified 03/16/25 18:30) Itching tramadol Adverse Reaction (Verified 03/16/25 18:30) Itching Medications ???Medication ???Instructions ???Recorded ???Confirmed ???Type amitriptyline 25 mg tablet 25 mg PO QHS depression 07/03/18 1 10/01/24 History cholecalciferol (vitamin D3) 125 1 cap PO DAILY supplement 11/09/18 08/01/25 History mcg (5,000 unit) capsule hydrochlorothiazide 25 mg tablet 25 mg PO DAILY blood 06/05/2004/18 Rx pressure/heart #30 tabs gabapentin 300 mg capsule 300 mg PO BID nerve pain 10/06/20 08/01/25 History metformin 500 mg tablet 500 mg PO BID diabetes #0 tabs 07/1608/01/25 Rx aspirin 81 mg tablet,delayed 81 mg PO DAILY heart health 08/01/25 History release escitalopram oxalate 10 mg tablet 10 mg PO DAILY depression 2 08/01/25 History losartan 25 mg tablet 25 mg PO DAILY blood pressure 06/2508/01/25 History pantoprazole 40 mg tablet,delayed 40 mg PO DAILY reflux #30 tabs 08/01/25 Rx release (Protonix) tamsulosin 0.4 mg capsule 0.4 mg PO DAILY@1730 prostate 30 0 01/08/24 08/01/25 Rx days #30 caps insulin glargine 100 unit/mL (3 10 unit subcut QHS diabetes 08/01/25 History mL) subcutaneous pen (Lantus Solostar U-100 Insulin) latanoprost 0.005 % eye drops 1 drp ophthalmic (eye) Q eye 11/1808/01/25 History health loratadine 10 mg tablet 10 mg PO DAILY allergies 02/25/24 08/01/25 History magnesium oxide 400 mg (241.3 mg 400 mg PO BID 02/25/24 08/01/25 Hi story magnesium) tablet pravastatin 20 mg tablet 20 mg PO DAILY cholesterol 4 08/01/25 History levocarnitine 330 mg tablet 660 mg (2 x 330 mg) PO BID #120 08/01/25 Rx tabs amlodipine 10 mg tablet 10 mg PO DAILY blood pressure #90 05/24/24 08/01/25 Rx tabs metoclopramide HCl 5 mg tablet 5 mg PO Q8H PRN PRN nausea and 08/01/25 Rx (Reglan) vomiting #10 tabs ezraeg-pgyoojvs-mtskyce(p ork)12,000-38,000-60,000 2 cap PO .COMPLEX #300 caps 01/06/25 08/01/25 Rx unit capsule,del rel (Creon) levetiracetam 500 mg tablet 500 mg PO BID #60 tabs 02/13/25 Rx ondansetron 4 mg disintegrating 4 mg PO Q8H PRN PRN Nausea #10 tab s 03/31/25 08/01/25 Rx tablet ursodiol 250 mg tablet 250 mg PO BID #180 TABLETS 5 08/01/25 Rx PFSH Medical History Bulging disc Liver fibrosis Myocardial infarct Stroke/cerebrovascular accident Alcohol [...] and depression Social History household members: none housing: house Smoking Status: Former smoker Tobacco: How many years used: 7 Electronic Cigarette Use: not used alcohol intake: former details: 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 substance use type: does not use caffeine: No robbin/jew: Mosque seatbelt use: always HPI HPI Chief Complaint: Details: BRONSON WELLER is a 60 M who presents to the office today for follow up. MRCP 8.20.21 pancreatic fluid suggestive of pancreatitis; small amount ascites. Normal ducts without filling defect, dilation or stricture. ? CT abd/pel 3.1 (more content not included)... Normal [facility] Gastroenterology Visit Repor ton 03-31-2025 Gastroenterology Visit Report [facility] [address] [place] [address] OFFICE VISIT Date of Service: 03/31/25 MR#: [id number] Acct: [id number] Name: BRONSON WELLER Rep #: [id number] : 1965 Provider: Taras Santamaria DO Age/Sex: 59/M Location: [facility] Status: Signed Intake Vital Signs 08/13/24 00:22 10/09/24 14:23 03/16/25 18:28 Height 5 ft 9 in 5 ft 9 in 5 ft 9 in Intake Visit Reasons: 6 M FU Chief Complaint: Allergies Iodinated Contrast Media Allergy (Mild, Verified 03/16/25 18:30) Rash hydromorphone (From Dilaudid) Allergy (Verified 03/16/25 18:30) Itching lisinopril Allergy (Verified 03/16/25 18:30) Angioedema cyclobenzaprine Adverse Reaction (Severe, Verified 03/16/25 18:30) Skin crawling hydrocodone bitartrate (From Vicodin) Adverse Reaction (Verified 03/16/25 18:30) Itching morphine Adverse Reaction (Verified 03/16/25 18:30) Itching tramadol Adverse Reaction (Verified 03/16/25 18:30) Itching Medications ???Medication ???Instructions ???Recorded ???Confirmed ???Type amitriptyline 25 mg tablet 25 mg PO QHS depression 07/03/18 0 03/31/25 History cholecalciferol (vitamin D3) 125 1 cap PO DAILY supplement 11/09/18 03/31/25 History mcg (5,000 unit) capsule hydrochlorothiazide 25 mg tablet 25 mg PO DAILY blood 06/05/2004/18 Rx pressure/heart #30 tabs gabapentin 300 mg capsule 300 mg PO BID nerve pain 10/06/20 03/31/25 History metformin 500 mg tablet 500 mg PO BID diabetes #0 tabs 07/1603/31/25 Rx aspirin 81 mg tablet,delayed 81 mg PO DAILY heart health 03/31/25 History release escitalopram oxalate 10 mg tablet 10 mg PO DAILY depression 2 03/31/25 History losartan 25 mg tablet 25 mg PO DAILY blood pressure 06/2503/31/25 History pantoprazole 40 mg tablet,delayed 40 mg PO DAILY reflux #30 tabs 03/31/25 Rx release (Protonix) tamsulosin 0.4 mg capsule 0.4 mg PO DAILY@1730 prostate 30 0 01/08/24 03/31/25 Rx days #30 caps insulin glargine 100 unit/mL (3 10 unit subcut QHS diabetes 03/31/25 History mL) subcutaneous pen (Lantus Solostar U-100 Insulin) latanoprost 0.005 % eye drops 1 drp ophthalmic (eye) QHS eye 11/1803/31/25 History health loratadine 10 mg tablet 10 mg PO DAILY allergies 02/25/24 03/31/25 History magnesium oxide 400 mg (241.3 mg 400 mg PO BID 02/25/24 03/31/25 Hi story magnesium) tablet pravastatin 20 mg tablet 20 mg PO DAILY cholesterol 4 03/31/25 History levocarnitine 330 mg tablet 660 mg (2 x 330 mg) PO BID #120 03/31/25 Rx tabs amlodipine 10 mg tablet 10 mg PO DAILY blood pressure #90 05/24/24 03/31/25 Rx tabs hydromorphone 2 mg tablet 2 mg PO Q6H PRN pain 3 days #12 03/31/25 Rx (Dilaudid) tabs metoclopramide HCl 5 mg tablet 5 mg PO Q8H PRN PRN nausea and 03/31/25 Rx (Reglan) vomiting #10 tabs oxycodone-acetaminophen 5 mg-325 1 tab PO Q6H PRN pain 08/13/2404/18 History mg tablet (Percocet) ursodiol 250 mg tablet 250 mg PO BID #180 TABLETS 5 03/31/25 Rx qtknad-kjcrfipe-bvnwfpu 2 cap PO .COMPLEX #300 caps 03/31/25 Rx 12,000-38,000-60,000 unit capsule,delayed rel (Creon) levetiracetam 500 mg tablet 500 mg PO BID #60 tabs 02/13/25 Rx oxycodone-acetaminophen 5 mg-325 1 tab PO Q6H PRN PRN pain 5 days 0 03/16/25 03/31/25 Rx mg tablet #20 TABLETS ondansetron 4 mg disintegrating 4 mg PO Q8H PRN PRN Nausea #10 tab s 03/31/25 03/31/25 Rx tablet PFSH Medical History Bulging disc Liver fibrosis Myocardial infarct Stroke/cerebrovascular accident Alcohol [...] and depression Social History household members: none housing: house Smoking Status: Former smoker Tobacco: How many years used: 7 Electronic Cigarette Use: not used alcohol intake: former details: 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 substance use type: does not (more content not included)... 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 Patient/authorized underwriting sales representative agreed to proceed Bronson Weller is a 59-year-old male with a history of pancreatitis secondary to alcohol abuse, presenting for follow-up after an ED visit for abdominal pain. Bronson was seen in the ED on 03/16 for persistent epigastric and RUQ pain, accompanied by nausea, emesis, and constipation. He also reported hematochezia, noting bright red blood on the toilet paper after a bowel movement. He was diagnosed with mild acute pancreatitis and hemorrhoids. He was discharged with Percocet for pain management and Zofran for nausea, with no other medication changes or imaging studies performed. Since discharge, Bronson reports complete resolution of abdominal pain, nausea, and emesis. He has not required frequent use of Percocet, noting he has approximately 7 tablets remaining. He denies any further episodes of hematochezia and reports normal bowel movements after using Clearlax. He denies fever, chills, diarrhea, melena, or heartburn, but does report mild flatulence, which was relieved with Gas-X. He notes a good appetite and improving energy levels. Bronson has a history of pancreatitis, with the last episode occurring in July 2024, during which his lipase level was greater than 400. He has a history of alcohol abuse but reports abstinence from alcohol for some time. He also mentions a recent dietary indulgence in greasy cheeseburgers, which he believes may have triggered his symptoms. He requests a refill of his nitroglycerin medication. 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/13/2022 Cervical radiculopathy 10/21/2014 Cervical spondylosis 10/21/2014 Chronic cholecystitis 01/07/2019 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 09/25/2011 DDD (degenerative disc disease), cervical 10/21/2014 DDD (degenerative disc disease), thoracic 10/21/2014 Elevated PSA 12/01/2020 Esophageal reflux Gastroesophageal reflux Fatty liver due to alcoholism 03/01/2022 GERD without esophagitis 12/01/2020 Glaucoma Hypertension, essential 11/17/2020 Hypertriglyceridemia 12/01/2020 Idiopathic acute pancreatitis without infection or necrosis (HCC) 02/27/2022 Lumbago 01/19/2015 Mental disorder Mixed hyperlipidemia Hyperlipidemia Nonintractable epilepsy [...] due to family history of colon cancer ESOPHAGOGASTRODUODENOSCOP Y TRANSORAL DIAGNOSTIC 08/31/2019 EGD LAPS SURG CHOLECYSTECTOMY W/CHOLANGIOGRAPHY 01/07/2019 LEFT HEART CATH,PERCUTANEOUS 10/31/2011 PROSTATE BIOPSY W/TRANSRECTAL US 01/19/2021 ALLERGIES Cyclobenzaprine, Iodinated Contrast Media, Iodine, Lisinopril, Narcotics [Opioids - Morphine Analogues], Tramadol, and Vicodin [Hydrocodone-Acetaminophe n] MEDICATIONS flash glucose sensor (FREESTYLE AGUSTIN 14 DAY SENSOR) kit 1 each every 2 weeks. gabapentin (NEURONTIN) 300 mg capsule Take 1 capsule by mouth two times a day for 180 days. escitalopram oxalate (LEXAPRO) 10 mg tablet Take 1 tablet by mouth once daily. Cholecalciferol, Vitamin D3, 125 mcg (5,000 unit) cap Take 1 capsule by mouth once daily. hydroCHLOROthiazide 25 mg tablet Take 1 tablet by mouth once daily. loratadine (CLARITIN) 10 mg tablet Take 1 tablet by mouth once daily. losartan (COZAAR) 25 mg tablet Take 1 tablet by mouth once daily. magnesium oxide (MAG-OX) 400 mg (241.3 mg magnesium) tablet Take 1 tablet by mouth two times a day. metFORMIN (GLUCOPHAGE) 500 mg tablet Take 1 tablet by mouth two times a day with meals. pantoprazole DR (PROTONIX) (more content not included)... Normal [facility] Absolute lymphocyte countOrd ered By: Genaro Trammell on 03-16-2025 Lymphocytes Auto (Unsp spec) [#/Vol] 3.23 10*3/uL 0.83-4.51 [facility] Absolute neutrophil countOrd ered By: Genaro Trammell on 03-16-2025 Neutrophils (Bld) [#/Vol] 7.3 10*3/uL 2.0-7.7 [facility] Anion gap in Serum or Plasma Ordered By: Genaro Trammell on 03-16-2025 Anion gap [Moles/Vol] 16 mmol/L High 5-15 [facility] Automated lymphocyte count a s percentage of total leukocytesOrdered By: Genaro Trammell on 03-16-2025 Lymphocytes/100 WBC Auto (Unsp spec) 28.1 % 19-41 [facility] BUN/creatinine ratioOrdered By: Genaro Trammell on 03-16-2025 Urea nitrogen/Creatinine [Mass ratio] 16.9 mg/mg 10-20 [facility] Basophil percentageOrdered B y: Genaro Trammell on 03-16-2025 Basophils/100 WBC (Bld) 0.3 % 0-1 [facility] Bilirubin, totalOrdered By: Genaro Trammell on 03-16-2025 Bilirubin [Mass/Vol] 0.82 mg/dL 0.00-1.30 [facility] CBC W/Diff, Automatedon 02-24 Absolute Lymph 3.23 X10 3/uL Normal 0.83-4.51 [facility] Comment on above: Performed By: #### L 500.4050, L501.2450, L100.0100 #### [facility] [address] [place], [address] Absolute Neut 7.3 X10 3/uL Normal 2.0-7.7 [facility] Comment on above: Performed By: #### L 500.4050, L501.2450, L100.0100 #### [facility] [address] [place], [address] Basophils/100 WBC (Bld) 0.3 % Normal 0-1 [facility] Comment on above: Performed By: #### L 500.4050, L501.2450, L100.0100 #### [facility] [address] [place], [address] Eosinophils/100 WBC (Bld) 1.1 % Normal 0-5 [facility] Comment on above: Performed By: #### L 500.4050, L501.2450, L100.0100 #### [facility] [address] [place], [address] Erythrocyte distribution width (RBC) [Ratio] 11.9 % Normal 11.6-14.6 [facility] Comment on above: Performed By: #### L 500.4050, L501.2450, L100.0100 #### [facility] [address] [place], [address] Hematocrit (Bld) [Volume fraction] 38.9 % Low 40-54 [facility] Comment on above: Performed By: #### L 500.4050, L501.2450, L100.0100 #### [facility] [address] [place], [address] Hemoglobin (Bld) [Mass/Vol] 13.9 g/dL Normal 13.0-16.5 [facility] Comment on above: Performed By: #### L 500.4050, L501.2450, L100.0100 #### [facility] [address] [place], [address] IG% 0.300 Normal 0.0-0.9 [facility] Comment on above: Result Comment: IG% - Immature Granulocytes (promyelocytes, myelocytes and metamyelocytes) > 1% indicates that a LEFT SHIFT is Present. Performed By: #### L 500.4050, L501.2450, L100.0100 #### [facility] [address] [place], [address] Lymphocytes/100 WBC (Bld) 28.1 % Normal 19-41 [facility] Comment on above: Performed By: #### L 500.4050, L501.2450, L100.0100 #### [facility] [address] [place], [address] MCH (RBC) [Entitic mass] 32.6 pg High 27.0-32.0 [facility] Comment on above: Performed By: #### L 500.4050, L501.2450, L100.0100 #### [facility] [address] [place], [address] MCHC (RBC) [Mass/Vol] 35.7 g/dL Normal 32-36 [facility] Comment on above: Performed By: #### L 500.4050, L501.2450, L100.0100 #### [facility] [address] [place], [address] MCV (RBC) [Entitic vol] 91.1 fL Normal 80-94 [facility] Comment on above: Performed By: #### L 500.4050, L501.2450, L100.0100 #### [facility] [address] [place], [address] Monocytes/100 WBC (Bld) 6.6 % Normal 0-10 [facility] Comment on above: Performed By: #### L 500.4050, L501.2450, L100.0100 #### [facility] [address] [place], [address] Neutrophils/100 WBC (Bld) 63.6 % Normal 47-70 [facility] Comment on above: Performed By: #### L 500.4050, L501.2450, L100.0100 #### [facility] [address] [place], [address] Nucleated RBC (Bld) [#/Vol] 0 10*3/uL Normal 0-5 [facility] Comment on above: Performed By: #### L 500.4050, L501.2450, L100.0100 #### [facility] [address] [place], [address] Platelet mean volume (Bld) [Entitic vol] 9.9 fL Normal 6.2-12.0 [facility] Comment on above: Performed By: #### L 500.4050, L501.2450, L100.0100 #### [facility] [address] [place], [address] Platelets (Bld) [#/Vol] 176 10*3/uL Normal 150-450 [facility] Comment on above: Performed By: #### L 500.4050, L501.2450, L100.0100 #### [facility] [address] [place], [address] RBC (Bld) [#/Vol] 4.27 10*6/uL Low 4.6-6.2 [facility] Comment on above: Performed By: #### L 500.4050, L501.2450, L100.0100 #### [facility] [address] [place], [address] RDW SD 39.5 fl Normal 35.1-43.9 [facility] Comment on above: Performed By: #### L 500.4050, L501.2450, L100.0100 #### [facility] [address] [place], [address] WBC (Bld) [#/Vol] 11.5 10*3/uL High 4.4-11.0 [facility] Comment on above: Performed By: #### L 500.4050, L501.2450, L100.0100 #### [facility] [address] [place], [address] Carbon dioxide, total [Moles /volume] in Central venous bloodOrdered By: Genaro Trammell on 03-16-2025 CO2 [Moles/Vol] 22.3 mmol/L 21.0-32.0 [facility] Chloride assayOrdered By: Lenny Trammell on 03-16-2025 Chloride [Moles/Vol] 98 mmol/L 98-108 [facility] Comprehensive Metabolic Prof ilon 03-16-2025 Albumin [Mass/Vol] 4.8 g/dL Normal 3.5-5.0 [facility] Comment on above: Performed By: #### L 500.4050, L501.2450, L100.0100 #### [facility] [address] [place], [address] Albumin/Globulin [Mass ratio] 1.5 {ratio} Normal 0.9-2.4 [facility] Comment on above: Performed By: #### L 500.4050, L501.2450, L100.0100 #### [facility] [address] [place], [address] ALK PHOS 77 U/L Normal 40-129 [facility] Comment on above: Performed By: #### L 500.4050, L501.2450, L100.0100 #### [facility] [address] [place], [address] ALT [Catalytic activity/Vol] 12 U/L Normal <=46 [facility] Comment on above: Performed By: #### L 500.4050, L501.2450, L100.0100 #### [facility] [address] [place], [address] AST [Catalytic activity/Vol] 14 U/L Normal <=37 [facility] Comment on above: Performed By: #### L 500.4050, L501.2450, L100.0100 #### [facility] [address] [place], [address] Bilirubin [Mass/Vol] 0.82 mg/dL Normal 0.00-1.30 [facility] Comment on above: Performed By: #### L 500.4050, L501.2450, L100.0100 #### [facility] [address] [place], [address] BUN/CRE 16.9 RATIO Normal 10-20 [facility] Comment on above: Performed By: #### L 500.4050, L501.2450, L100.0100 #### [facility] [address] [place], [address] Calcium [Mass/Vol] 10.0 mg/dL Normal 7.6-11.0 [facility] Comment on above: Performed By: #### L 500.4050, L501.2450, L100.0100 #### [facility] [address] [place], [address] Chloride [Moles/Vol] 98 mmol/L Normal 98-108 [facility] Comment on above: Performed By: #### L 500.4050, L501.2450, L100.0100 #### [facility] [address] [place], [address] CO2 [Moles/Vol] 22.3 mmol/L Normal 21.0-32.0 [facility] Comment on above: Performed By: #### L 500.4050, L501.2450, L100.0100 #### [facility] [address] [place], [address] Creatinine [Mass/Vol] 1.04 mg/dL Normal 0.70-1.20 [facility] Comment on above: Performed By: #### L 500.4050, L501.2450, L100.0100 #### [facility] [address] [place], [address] ECRCL 76.48 ml/min Normal 50-250 [facility] Comment on above: Performed By: #### L 500.4050, L501.2450, L100.0100 #### [facility] [address] [place], [address] GAP 16 High 5-15 [facility] Comment on above: Performed By: #### L 500.4050, L501.2450, L100.0100 #### [facility] [address] [place], [address] GFR/1.73 sq M.predicted among non-blacks MDRD (S/P/Bld) [Vol rate/Area] 83 mL/min/{1.73_m2} Normal >60 [facility] Comment on above: Result Comment: mL/m in/1.73m2 CKD-EPI Creatinine Equation (2020) Performed By: #### L 500.4050, L501.2450, L100.0100 #### [facility] [address] [place], [address] Globulin (S) [Mass/Vol] 3.3 g/dL Normal 2.2-4.2 [facility] Comment on above: Performed By: #### L 500.4050, L501.2450, L100.0100 #### [facility] [address] [place], [address] Glucose [Mass/Vol] 230 mg/dL High 70-99 [facility] Comment on above: Performed By: #### L 500.4050, L501.2450, L100.0100 #### [facility] [address] [place], [address] Potassium [Moles/Vol] 3.5 mmol/L Normal 3.3-5.1 [facility] Comment on above: Performed By: #### L 500.4050, L501.2450, L100.0100 #### [facility] [address] [place], [address] Sodium [Moles/Vol] 137 mmol/L Normal 133-145 [facility] Comment on above: Performed By: #### L 500.4050, L501.2450, L100.0100 #### [facility] [address] [place], [address] T PROT 8.1 g/dL Normal 5.9-8.4 [facility] Comment on above: Performed By: #### L 500.4050, L501.2450, L100.0100 #### [facility] [address] [place], [address] Urea nitrogen [Mass/Vol] 18 mg/dL Normal 4-19 [facility] Comment on above: Performed By: #### L 500.4050, L501.2450, L100.0100 #### [facility] [address] [place], [address] Emergency Department Summary on 03-16-2025 Emergency Department Summary [facility] Medical Records Department [address] [place] [address] Emergency Department Summary 03/16/25 MR#: [id number] Acct: [id number] Name: BRONSON WELLER Rep #: [id number] : 1965 59 From: Genaro Trammell MD PCP: Dr. Lobito Maldonado MD Status:REG ER Location: ED HPI HPI - GI History of Present Illness Chief Complaint: Abd Pain Detail of Chief Complaint: Upper abdominal pain with nausea vomiting Abdominal Pain/Flank Pain Onset: Days (3 days ago , March 13) Context: Sudden Onset Timing: Continuous Quality: Aching and Cramping Location: Epigastric and LUQ Current Severity: Mild Maximum Severity: Severe Worsened by: Food Relieved by: Nothing Nausea/Vomiting/Emesis GI Symptom: Positive for Nausea and Vomiting (X 2 since onset of pain) Quality: Negative for Nonbilious, Blood streaks, Coffee ground or Hematemesis Severity: Mild Episodes: 2 Diarrhea/Melena/Hematoche von GI Symptom: Positive for Hematochezia; Negative for Diarrhea or Melena Onset: Today and Yesterday Severity: Mild Associated Symptoms Associated Symptoms: Negative for Dysuria, Frequency, Hematuria or Urgency Narrative Narrative: Patient is a 59-year-old male. He has a history of due to alcohol use. He has not used alcohol in some time. His last ER visit for pancreatitis was July 2024. His lipase at that time was greater than 400. He presents because of persistent pain located epigastric right upper quadrant. Had 2 episodes of nausea vomiting. He was initially constipated took medicine and had bowel movement had a bowel movement today. He denied black or maroon stool. Per triage note he had bright red blood. He endorses bright red blood on tissue and in the commode. He states he does not have any hemorrhoids at this time that he is aware of. He is on no antithrombotic or anticoagulant. He does have a history of GERD. He denies bruising easily. No hematuria. Nuys bleeding of his gums. Prior similar symptoms: Yes Recent Illness/Hospitalization: No PFSH [facility] Medical History Bulging disc Liver fibrosis Myocardial infarct Stroke/cerebrovascular accident Alcohol [...] tablet 25 mg PO QHS depression 07/03/18 0 01/06/24 History cholecalciferol (vitamin D3) 125 1 cap PO DAILY supplement 11/09/18 01/06/24 History mcg (5,000 unit) capsule hydrochlorothiazide 25 mg tablet 25 mg PO DAILY blood 06/05/2012/24 Rx pressure/heart #30 tabs gabapentin 300 mg capsule 300 mg PO BID nerve pain 10/06/20 01/06/24 History metformin 500 mg tablet 500 mg PO BID diabetes #0 tabs 07/1601/06/24 Rx aspirin 81 mg tablet,delayed 81 mg PO DAILY heart health 01/06/24 History release escitalopram oxalate 10 mg tablet 10 mg PO DAILY depression 2 01/06/24 History losartan 25 mg tablet 25 mg PO DAILY blood pressure 06/2501/06/24 History pantoprazole 40 mg tablet,delayed 40 mg PO DAILY reflux #30 tabs Unknown Rx release (Protonix) tamsulosin 0.4 mg capsule 0.4 mg PO DAILY@1730 prostate 30 0 01/08/24 Unknown Rx days #30 caps insulin glargine 100 unit/mL (3 10 unit subcut QHS diabetes Unknown History mL) subcutaneous pen (Lantus Solostar U-100 Insulin) latanoprost 0.005 % eye drops 1 drp ophthalmic (eye) QHS eye 11/18 Unknown History health loratadine 10 mg tablet 10 mg PO DAILY allergies 02/25/24 Unknown History magnesium oxide 400 mg (241.3 mg 400 mg PO BID 02/25/24 Unknown His tory magnesium) tablet pravastatin 20 mg tablet 20 mg PO DAILY cholesterol 4 Unknown History levocarnitine 330 mg tablet 660 mg (2 x 330 mg) PO BID #120 Unknown Rx tabs amlodipine 10 mg tablet 10 mg PO DAILY blood pressure #90 05/24/24 Unknown Rx tabs hydromorphone 2 mg tablet 2 mg PO Q6H PRN pain 3 days #12 Unknown Rx (Dilaudid) tabs metoclopramide HCl 5 mg tablet 5 mg PO Q8H PRN PRN nausea and Unknown Rx (Reglan) vomiting #10 tabs ondansetron 4 mg disintegrating 4 mg PO Q8H PRN nausea and vomitin g 08/13/24 Unknown History tablet oxycodone-acetaminophen 5 mg-325 1 tab PO Q6H PRN pain 08/13/24 Unk nown History mg tablet (Percocet) ursodiol 250 mg tablet 250 (more content not included)... Normal [facility] Eosinophil percentageOrdered By: Genaro Trammell on 03-16-2025 Eosinophils/100 WBC (Bld) 1.1 % 0-5 [facility] Erythrocyte distribution wid th ratioOrdered By: Genaro Trammell on 03-16-2025 Erythrocyte distribution width (RBC) [Ratio] 11.9 % 11.6-14.6 [facility] Erythrocyte distribution wid th standard deviationOrdered By: Genaro Trammell on 03-16-2025 Erythrocyte distribution width (RBC) [Ratio] 39.5 fl 35.1-43.9 [facility] Glomerular filtration rate ( GFR) estimation/1.73 sq m using serum, plasma, or whole bOrdered By: Genaro Trammell on 03-16-2025 GFR/1.73 sq M.predicted among non-blacks MDRD (S/P/Bld) [Vol rate/Area] 83 mL/min/{1.73_m2} >60 [facility] Comment on above: mL/min/1.73m2 CKD-EP I Creatinine Equation (2020) Hematocrit Auto (Bld) [Volum e fraction]Ordered By: Genarojosafat Johanseno on 03-16-2025 Hematocrit (Bld) [Volume fraction] 38.9 % Low 40-54 [facility] Hemoglobin measurementOrdere d By: Genarojosafat Johanseno on 03-16-2025 Hemoglobin (Bld) [Mass/Vol] 13.9 g/dL 13.0-16.5 [facility] Immature granulocytes/100 WB C Auto (Bld)Ordered By: Genarojosafat Trammell on 03-16-2025 Immature granulocytes/100 WBC (Bld) 0.300 % 0.0-0.9 [facility] Comment on above: IG% - Immature Granu locytes (promyelocytes, myelocytes and metamyelocytes) > 1% indicates that a LEFT SHIFT is Present. Laboratory - Chemistry and C hemistry - challengeOrdered By: Genaro Trammell on 03-16-2025 AST [Catalytic activity/Vol] 14 U/L <38 [facility] Lipaseon 03-16-2025 Lipase [Catalytic activity/Vol] 130 U/L High 13-75 [facility] Comment on above: Result Comment: Roberto Carlos kwon note: LIPASE revised reference range effective 23. New Lipase methodology. Expected to produce lower values than the previous assay method. NEW Reference Range: 13 - 75 U/L Performed By: #### L 3100.5017, L101.9900, L500.4050, L100.0100, L501.6710 #### [facility] [address] [place] [address], [id number] Lipase measurementOrdered By : Genarojosafat Trammell on 03-16-2025 Lipase [Catalytic activity/Vol] 130 U/L High 13-75 [facility] Comment on above: Please note:LIPASE r evised reference range effective 23. New Lipase methodology. Expected to produce lower values than the previous assay method. NEW Reference Range: 13 - 75 U/L MCV (mean corpuscular volume ) determinationOrdered By: Genarojosafat Trammell on 03-16-2025 MCV (RBC) [Entitic vol] 91.1 fL 80-94 [facility] Mean corpuscular hemoglobin (MCH) determinationOrdered By: Genaro Trammell on 03-16-2025 MCH (RBC) [Entitic mass] 32.6 pg High 27.0-32.0 [facility] Mean corpuscular hemoglobin concentration (MCHC) determinationOrdered By: Genaro Trammell on 03-16-2025 MCHC (RBC) [Mass/Vol] 35.7 g/dL 32-36 [facility] Mean platelet volume determi nationOrdered By: Genaro Trammell on 03-16-2025 Platelet mean volume (Bld) [Entitic vol] 9.9 fL 6.2-12.0 [facility] Monocyte percentageOrdered B y: Genaro Trammell on 03-16-2025 Monocytes/100 WBC (Bld) 6.6 % 0-10 [facility] Neutrophil percentageOrdered By: Genarojosafat Trammell on 03-16-2025 Neutrophils/100 WBC (Bld) 63.6 % 47-70 [facility] Nucleated red blood cell per centageOrdered By: Genaro Trammell on 03-16-2025 Nucleated RBC/100 WBC (Bld) [Ratio] 0 % 0-5 [facility] Platelet countOrdered By: Lenny Trammell on 03-16-2025 Platelets (Bld) [#/Vol] 176 10*3/uL 150-450 [facility] Potassium measurement (mass/ volume)Ordered By: Genaro Trammell on 03-16-2025 Potassium (Unsp spec) [Mass/Vol] 3.5 mmol/L 3.3-5.1 [facility] RBC Auto (Bld) [#/Vol]Ordere d By: Genaro Trammell on 03-16-2025 RBC (Bld) [#/Vol] 4.27 10*6/uL Low 4.6-6.2 [facility] Serum creatinine measurement (mass/volume)Ordered By: Genaro Trammell on 03-16-2025 Creatinine [Mass/Vol] 1.04 mg/dL 0.70-1.20 [facility] Serum globulin measurementOr dered By: Genaro Trammell on 03-16-2025 Globulin (S) [Mass/Vol] 3.3 g/dL 2.2-4.2 [facility] Serum glucose measurement (m ass/volume)Ordered By: Genaro Trammell on 03-16-2025 Glucose [Mass/Vol] 230 mg/dL High 70-99 [facility] Serum or plasma alanine huerta otransferase (ALT) measurementOrdered By: Genaro Trammell on 03-16-2025 ALT [Catalytic activity/Vol] 12 U/L <47 [facility] Serum or plasma albumin mc urement (mass/volume)Ordered By: Genaro Trammell on 03-16-2025 Albumin [Mass/Vol] 4.8 g/dL 3.5-5.0 [facility] Serum or plasma albumin/glob ulin mass ratioOrdered By: Genarojosafat Trammell on 03-16-2025 Albumin/Globulin [Mass ratio] 1.5 {ratio} 0.9-2.4 [facility] Serum or plasma alkaline radha sphatase measurementOrdered By: Genarojosafat Trammell on 03-16-2025 ALP [Catalytic activity/Vol] 77 U/L 40-129 [facility] Serum or plasma calcium mc urement (mass/volume)Ordered By: Genaro Trammell on 03-16-2025 Calcium [Mass/Vol] 10.0 mg/dL 7.6-11.0 [facility] Serum or plasma urea nitroge n measurement (mass/volume)Ordered By: Genaro Trammell on 03-16-2025 Urea nitrogen [Mass/Vol] 18 mg/dL 4-19 [facility] Sodium levelOrdered By: Genarojosafat Trammell on 03-16-2025 Sodium [Moles/Vol] 137 mmol/L 133-145 [facility] Total proteinOrdered By: Genaro Trammell on 03-16-2025 Protein [Mass/Vol] 8.1 g/dL 5.9-8.4 [facility] White blood cell (WBC) count Ordered By: Genaro Trammell on 03-16-2025 WBC (Bld) [#/Vol] 11.5 10*3/uL High 4.4-11.0 [facility] KEPPRA (LEVETIRACETAM)on KEPPRA 15.2 ug/mL Normal 10.0-40.0 [facility] Comment on above: Result Comment: Perf ormed at: BN - [facility] [address] [id number] Roller Stainer: Fam Talbert MD, Phone: [phone] Performed By: #### L 3310.0000, L529.2410 #### [facility] [address] [place], [address] Ammoniaon 02-13-2025 Ammonia (P) [Moles/Vol] 23.9 umol/L Normal 16-60 [facility] Comment on above: Performed By: #### L 3310.0000, L554.9260 #### [facility] [address] [place], [address] LevetiracetamOrdered By: Ehsan Burnett on 02-13-2025 levETIRAcetam [Mass/Vol] 15.2 ug/mL 10.0-40.0 [facility] Comment on above: Performed at: BN - [facility] [address] [id number] Director: Fam Talbert MD, Phone: [phone] Neurology Visit Reporton Neurology Visit Report Reading [facility]y [address] [facility], [address] [place], [place] [address] OFFICE VISIT Date of Service: 02/13/25 MR#: [id number] Acct: [id number] Name: BRONSON WELLER Rep #: [id number] : 1965 Provider: Dr. Antony shafer MD Age/Sex: 59/M Location: [facility] Status: Signed HPI [facility] Chief Complaint: Details: Interim History: Bronson returns for follow-up visit. He has a history of hypercholesterolemia, hypertension, diabetes mellitus, coronary artery disease, IA (2011), and epilepsy. He began to have seizures around 2017. His seizures begin with tinnitus followed by tremulousness and subsequent loss of consciousness. He has had associated urinary incontinence and one episode of associated tongue- biting and has postictal confusion and lethargy. Initially, his seizures were occurring about once every 2 weeks. He started levetiracetam in 2019 and had a reduction in his seizure frequency to about once every 3 months. In September 2020, his levetiracetam was increased to 500mg BID. Since increasing his levetiracetam, he has had 4 seizures (2 in November 2020, 1 in January 2021, and 1 around September 2024), each preceded by a missed dose of levetiracetam. He is now compliant with his levetiracetam treatment. He previously had a few brief seizure auras without subsequent seizures, which have occurred in the morning before his morning dose of levetiracetam. His last levetiracetam level (November 2023) was in the therapeutic range. His ammonia level was previously elevated. His dose of levocarnitine was increased in 2023 and a subsequent ammonia level was normal. Lactulose was not well-tolerated. He has numbness and stinging pain in the feet due to a polyneuropathy. He takes gabapentin and this has been of benefit for his neuropathic pain. A [...] around 2000. There is no history of RETREAD OPERATOR infection. He does not have any significant history. He has a family history of cerebral aneurysm; his sister has had multiple cerebral aneurysms. His head MRA in February 2021 was unremarkable. His brain MRI from 2017 showed chronic white matter ischemic changes. He takes aspirin 81mg daily. He has a history of pancreatitis and fatty liver. He takes Creon. He is under the care of a manufacturing manager, Dr. Santamaria. Between his visits of July 2022 and March 2024, he had discontinued the use of alcohol. Physical Exam: Neuro: The patient is awake and alert and responds appropriately; speech is fluent Heart: Regular rate and rhythm Supplemental Info [...] therapeutic range) Labs (04/22/2021): Ammonia: 50.0 (H) [place]/lambda light chains: free kappa light chains 31.1 (H) SPEP + ROSI: presence of monoclonal protein is unclear at this t (more content not included)... Normal [facility] Venous blood ammonia measure mentOrdered By: Antony Burnett on 02-13-2025 Ammonia (P) [Moles/Vol] 23.9 umol/L 16-60 [facility] ALBUMIN/CREATININE RATIO, UR INEon 02-12-2025 Albumin DL <= 20 mg/L (U) [Mass/Vol] 285.3 mg/L Normal [facility] Comment on above: Order Comment: Speci men Type: URINE SPECIMENOrdering Facility: [facility] Address: [address] [place] [address] Performed By: #### U ACR ####[facility] [id number] [address] [place] [facility] Albumin/Creatinine (U) [Mass ratio] 180 mg/g High <30 [facility] Comment on above: Order Comment: Speci men Type: URINE SPECIMENOrdering Facility: [facility] Address: [address] [place] [address] Result Comment: Adul t Male and Female Nephrotic Criteria: <30 mg/g is considered normal to mildly increased 30-300 mg/g is considered moderately increased >300 mg/g is considered severely increased KDIGO. (2013). KDIGO 2012 Clinical Practice Guideline for the Evaluation and Management of Chronic Kidney Disease. Official Journal of the International Society of Nephrology, 3(1), 1-150. Performed By: #### U ACR ####[facility] [id number] [place] [id number] [place] Creatinine (U) [Mass/Vol] 158.4 mg/dL Normal 20.0-300.0 [facility] Comment on above: Order Comment: Speci men Type: URINE SPECIMENOrdering Facility: [facility] Address: [address] [place] [address] Performed By: #### U ACR ####[facility] [id number] [place] [id number] [facility] CNOVon 02-12-2025 CNOV Office Visit (INTMWS ) ----- BRONSON WELLER ([id number]) 1965 M Date Time Provider Department 02/12/25 4:00 PM ALIS CHUA INTMWS During your visit today, we recorded the following information about you: Pulse Respiration Blood pressure Weight 80/minute 14/minute 118/80 79.3 kg Height 1.795 m Alis Chua APRN.CNP 02/12/2025 4:05 PM Signed Bronson Weller is a 59 year old [...] General (Internal Medicine) Alis Chua APRN.CNP as Duct Layer Helper (Internal Medicine) Dr. Burnett-neurology Kat Galindo-optometry Dr. Santamaria-GI Medical/Family history review Reviewed and updated problem list, medical/surgical/family/s ocial history, medications, and allergies. Opioid use review [...] 80 Resp 14 Ht 179.5 cm (5' 10.67") Wt 79.3 kg (174 lb 13.2 oz) BMI 24.61 kg/m? Vision Screening: Follows with optometry/ophthalmology Assessment/Plan Medicare annual wellness visit, subsequent (Z00.00) - Counseled on healthy diet and regular exercise - Fall avoidance information provided - Personalized prevention plan provided Additional Concerns The following concerns were also discussed with the patient: Recording using [employer] software for draft documentation of the visit was discussed with the patient/authorized underwriting sales representative; all questions welcomed and answered. Patient/authorized underwriting sales representative agreed to proceed Anxiety and Depression: - Managed with Lexapro and amitriptyline. - Amitriptyline also helps with sleep. - Recent depression score was 0. Diabetes Mellitus: - Takes metformin BID and Lantus 16 units daily. - Monitors blood glucose levels in the morning and at night; levels are generally good. - Uses Yoono Agustin for continuous glucose monitoring. - Last [...] 80 Resp 14 Ht 179.5 cm (5' 10.67") Wt 79.3 kg (174 lb 13.2 oz) [...] lipid panel results. 9. Coronary artery disease involvin (more content not included)... Normal [facility] Comprehensive metabolic 2000 panelon 02-12-2025 Albumin [Mass/Vol] 4.8 g/dL Normal 3.9-4.9 [facility] Comment on above: Order Comment: Speci men Type: BLOOD SPECIMENOrdering Facility: [facility] Address: [address] [place] [address] Performed By: #### 1 9123-9, 00442-7, LIPNF ####[facility] LABCLIA [id number] [place] [address] [place] ALP [Catalytic activity/Vol] 70 U/L Normal 38-113 [facility] Comment on above: Order Comment: Speci men Type: BLOOD SPECIMENOrdering Facility: [facility] Address: [address] [place] [address] Performed By: #### 1 9123-9, 84598-5, LIPNF ####[facility] [id number] [place] [address] [place] ALT [Catalytic activity/Vol] 11 U/L Normal 10-54 [facility] Comment on above: Order Comment: Speci men Type: BLOOD SPECIMENOrdering Facility: [facility] Address: [address] [place] [address] Performed By: #### 1 9123-9, 26166-9, LIPNF ####[facility] [id number] [place] [id number] [place] Anion gap [Moles/Vol] 14 mmol/L Normal 8-15 [facility] Comment on above: Order Comment: Speci men Type: BLOOD SPECIMENOrdering Facility: [facility] Address: [address] [place] [address] Performed By: #### 1 9123-9, 81105-5, LIPNF ####[facility] [id number] [place] [address] [place] AST [Catalytic activity/Vol] 15 U/L Normal 14-40 [facility] Comment on above: Order Comment: Speci men Type: BLOOD SPECIMENOrdering Facility: [facility] Address: [address] [place] [address] Performed By: #### 1 9123-9, 36532-7, LIPNF ####[facility] [id number] [place] [address] [place] Bilirubin [Mass/Vol] 0.4 mg/dL Normal 0.2-1.3 [facility] Comment on above: Order Comment: Speci men Type: BLOOD SPECIMENOrdering Facility: [facility] Address: [address] [place] [address] Performed By: #### 1 9123-9, 64417-8, LIPNF ####[facility] [id number] [place] [address] [place] Calcium [Mass/Vol] 9.9 mg/dL Normal 8.5-10.2 [facility] Comment on above: Order Comment: Speci men Type: BLOOD SPECIMENOrdering Facility: [facility] Address: [address] [place] [address] Performed By: #### 1 9123-9, 99549-1, LIPNF ####[facility] [id number] [place] [id number] [place] Chloride [Moles/Vol] 99 mmol/L Normal 98-107 [facility] Comment on above: Order Comment: Speci men Type: BLOOD SPECIMENOrdering Facility: [facility] Address: [address] [place] [address] Performed By: #### 1 9123-9, 56691-0, LIPNF ####[facility]CL[facility] [id number] [address] [address] [place] CO2 [Moles/Vol] 23 mmol/L Normal 22-30 [facility] Comment on above: Order Comment: Speci men Type: BLOOD SPECIMENOrdering Facility: [facility] Address: [address] [place] [address] Performed By: #### 1 9123-9, 97988-1, LIPNF ####[facility] [id number] [address] [address] [place] Creatinine [Mass/Vol] 0.92 mg/dL Normal 0.73-1.22 [facility] Comment on above: Order Comment: Speci men Type: BLOOD SPECIMENOrdering Facility: [facility] Address: [address] [place] [address] Performed By: #### 1 9123-9, 81992-8, LIPNF ####[facility] [id number] [address] [address] [place] Creatinine and Glomerular filtration rate.predicted panel (S/P/Bld) 96 mL/min/1.73m??? Normal >=60 [facility] Comment on above: Order Comment: Speci men Type: BLOOD SPECIMENOrdering Facility: [facility] Address: [address] [place] [address] Result Comment: Ana Maria mated Glomerular Filtration Rate (eGFR) is calculated using the 2020 CKD-EPI creatinine equation. This equation utilizes serum creatinine, sex, and age as parameters. The creatinine assay has traceable calibration to isotope dilution-mass spectrometry. Refer to KDIGO guidelines for clinical interpretation. In patients with unstable renal function, e.g. those with acute kidney injury, the eGFR may not accurately reflect actual GFR. Performed By: #### 1 9123-9, 26891-5, LIPNF ####[facility] [id number] [address] [address] [place] Glucose [Mass/Vol] 193 mg/dL High 74-99 [facility] Comment on above: Order Comment: Speci men Type: BLOOD SPECIMENOrdering Facility: [facility] Address: [address] [place] [address] Result Comment: The [place] Diabetes Association (ADA) provides guidance for cutoff values for fasting glucose and random glucose. The ADA defines fasting as no caloric intake for at least 8 hours. Fasting plasma glucose results between 100 to 125 mg/dL indicate increased risk for diabetes (prediabetes). Fasting plasma glucose results greater than or equal to 126 mg/dL meet the criteria for diagnosis of diabetes. In the absence of unequivocal hyperglycemia, results should be confirmed by repeat testing. In a patient with classic symptoms of hyperglycemia or hyperglycemic crisis, random plasma glucose results greater than or equal to 200 mg/dL meet the criteria for diagnosis of diabetes. Reference: Standards of Medical Care in Diabetes 2016, [place] Diabetes Association. Diabetes Care. 2016.39(Suppl 1). Performed By: #### 1 9123-9, 98448-4, LIPNF ####[facility]CL[facility] [id number] [place] [address] [place] Potassium [Moles/Vol] 4.0 mmol/L Normal 3.7-5.1 [facility] Comment on above: Order Comment: Speci men Type: BLOOD SPECIMENOrdering Facility: [facility] Address: [address] [place] [address] Performed By: #### 1 9123-9, 76683-5, LIPNF ####[facility] LABCLIA [id number] [place] [address] [place] Protein [Mass/Vol] 7.7 g/dL Normal 6.3-8.0 [facility] Comment on above: Order Comment: Speci men Type: BLOOD SPECIMENOrdering Facility: [facility] Address: [address] [place] [address] Performed By: #### 1 9123-9, 06927-9, LIPNF ####[facility] LABCLIA [id number] [place] [id number] [place] Sodium [Moles/Vol] 136 mmol/L Normal 136-144 [facility] Comment on above: Order Comment: Speci men Type: BLOOD SPECIMENOrdering Facility: [facility] Address: [address] [place] [address] Performed By: #### 1 9123-9, 64738-1, LIPNF ####[facility] LABIA [id number] [place] [address] [place] Urea nitrogen [Mass/Vol] 14 mg/dL Normal 9-24 [facility] Comment on above: Order Comment: Speci men Type: BLOOD SPECIMENOrdering Facility: [facility] Address: [address] [place] [address] Performed By: #### 1 9123-9, 59869-3, LIPNF ####[place] [id number] [place] [address] [place] HbA1c (Bld)on 02-12-2025 Average glucose Estimated from glycated hemoglobin (Bld) [Mass/Vol] 183 mg/dL Normal [facility] Comment on above: Order Comment: Carlai men Type: BLOOD SPECIMENOrdering Facility: [facility] Address: [address] [place] [address] Result Comment: eAG: (Estimated average glucose) is a calculated value from HgbA1c and is underwriting sales representative of the average blood glucose level in the last 2-3 month period. Performed By: #### 5 5454-3 ####[facility] LABIA [id number] [place] [address] [place] HbA1c (Bld) [Mass fraction] 8.0 % High 4.3-5.6 [facility] Comment on above: Order Comment: Carlai men Type: BLOOD SPECIMENOrdering Facility: [facility] Address: [address] [place] [address] Result Comment: Amer ican Diabetes Association guidelines indicate that patients with HgbA1c in the range 5.7-6.4% are at increased risk for development of diabetes, and intervention by lifestyle modification may be beneficial. HgbA1c greater or equal to 6.5% is considered diagnostic of diabetes. Performed By: #### 5 5454-3 ####[facility] LABCLIA [id number] [address] [address] [place] LIPID PANEL, NONFASTINGon Cholesterol [Mass/Vol] 170 mg/dL Normal <200 [facility] Comment on above: Order Comment: Speci men Type: BLOOD SPECIMENOrdering Facility: [facility] Address: [address] [place] [address] Result Comment: <200 mg/dL, Desirable 200-239 mg/dL, Borderline high >239 mg/dL, High Performed By: #### 1 9123-9, 77740-3, LIPNF ####[facility] LABCLIA [id number] [place] [address] [place] HDL CHOLESTEROL, NF 63 mg/dL Normal >39 [facility] Comment on above: Order Comment: Isidro medeiros Type: BLOOD SPECIMENOrdering Facility: [facility] Address: [address] [place] [address] Result Comment: 40-5 9 mg/dL, Acceptable >59 mg/dL, High: Negative risk factor for coronary heart disease <40 mg/dL, Low: Positive risk factor for coronary heart disease Performed By: #### 1 9123-9, 27814-4, LIPNF ####[facility] LABIA [id number] [place] [id number] [place] LDL CHOLESTEROL CALCULATED, NF 84 mg/dL Normal <100 [facility] Comment on above: Order Comment: Isidro mala Type: BLOOD SPECIMENOrdering Facility: [facility] Address: [address] [place] [address] Result Comment: <100 mg/dL, Optimal 100-129 mg/dL, Near optimal/above optimal 130-159 mg/dL, Borderline high 160-189 mg/dL, High >189 mg/dL, Very high Secondary prevention optimal LDL Cholesterol levels are recommended to be <70 mg/dL LDL cholesterol is calculated using the [place]chola-NIH equation. Performed By: #### 1 9123-9, 80708-5, LIPNF ####[facility] LABIA [id number] [address] [place] LDL/HDL RATIO, NF 1.33 mg/dL Normal <2.54 [facility] Comment on above: Order Comment: Speci men Type: BLOOD SPECIMENOrdering Facility: [facility] Address: [address] [place] [address] Result Comment: Refe rence: 1. National Cholesterol Education Program ATP III Guideline At-A-Glance Quick Desk Reference: National Heart, Lung, and Blood [place]. National Institutes of Health. 2001: NIH Publication No. 01-3305. 2. An International Atherosclerosis Society position paper: global recommendations for the management of dyslipidemia: executive summary, Atherosclerosis. 2014: 232(2):410-413. Performed By: #### 1 9123-9, 45506-1, LIPNF ####[facility] LABIA [id number] [place] [address] [place] NON HDL CHOL, NF 107 mg/dL Normal <130 [facility] Comment on above: Order Comment: Carlai men Type: BLOOD SPECIMENOrdering Facility: [facility] Address: [address] [place] [address] Result Comment: <130 mg/dL, Optimal 130-159 mg/dL, Near optimal/above optimal 160-189 mg/dL, Borderline high 190-219 mg/dL, High >219 mg/dL, Very high Secondary prevention optimal non HDL Cholesterol levels are recommended to be <100 mg/dL Performed By: #### 1 9123-9, 04961-1, LIPNF ####[facility] LABIA [id number] [address] OF [place] T CHOL/HDL RATIO NF 2.70 mg/dL Normal <5.10 [facility] Comment on above: Order Comment: Speci men Type: BLOOD SPECIMENOrdering Facility: [facility] Address: [address] [place] [address] Performed By: #### 1 9123-9, 05089-3, LIPNF ####[facility] LABCLIA [id number] [place] [address] [place] TRIGLYCERIDES, NF 133 mg/dL Normal <150 [facility] Comment on above: Order Comment: Speci men Type: BLOOD SPECIMENOrdering Facility: [facility] Address: [address] [place] [address] Result Comment: <150 mg/dL, Normal 150-199 mg/dL, Borderline high 200-499 mg/dL, High >499 mg/dL, Very high Performed By: #### 1 9123-9, 80551-1, LIPNF ####[facility] LABIA [id number] [place] [address] [place] VLDL CHOLESTEROL, NF 21 mg/dL Normal <30 [facility] Comment on above: Order Comment: Speci men Type: BLOOD SPECIMENOrdering Facility: [facility] Address: [address] [place] [address] Performed By: #### 1 9123-9, 88882-7, LIPNF ####[facility] LABIA [id number] [place] [address] [place] Magnesium SerPl-mCncon 02-12 Magnesium [Mass/Vol] 1.9 mg/dL Normal 1.7-2.3 [facility] Comment on above: Order Comment: Speci men Type: BLOOD SPECIMENOrdering Facility: [facility] Address: [address] [place] [address] Performed By: #### 1 9123-9, 17641-9, LIPNF ####[facility] LABCLIA [id number] [place] [address] [place] PSA SerPl-mCncon 02-12-2025 Prostate specific Ag [Mass/Vol] 5.22 ng/mL High <2.60 [facility] Comment on above: Order Comment: Speci men Type: BLOOD SPECIMENOrdering Facility: [facility] Address: [address] [place] [address] [place] [address] Result Comment: Sundeep aceves PSA test methodology used is the Electrochemiluminescence Immunoassay by [employer]. Total PSA values by differing methodologies cannot be interchanged. For an individual patient, the significance of a PSA level should be interpreted in a broad clinical context, including age, race, family history, digital rectal exam, prostate size, results of prior testing (prostate biopsy, free PSA, PCA3), and use of 5-alpha reductase inhibitors. Considering the high incidence of asymptomatic cancer in the general population that may not pose an ultimate risk to a patient, the decision to recommend urological evaluation or prostate biopsy should be individualized after consideration of all these factors. REFERENCE: Edith Cox M.D., M.P.H., Dexter Del Rio M.D., Ph.D., Juan A Hernandez M.D., Olga Ramirez, M.P.H., María Gonzalez, ScLiv. Effect of Verification Bias on Screening for Prostate Cancer by Measurement of Prostatic Specific Antigen. N Engl J Med 2003,349:335-42. Performed By: #### 2 857-1 ####[facility] LABCLIA [id number] [place] [address] [place] levETIRAcetam [facility] 0 02-12-2025 levETIRAcetam [Mass/Vol] 6.2 ug/mL Low 12.0-46.0 [facility] Comment on above: Order Comment: Speci men Type: BLOOD SPECIMENOrdering Facility: [facility] Address: [address] [place] [address] Result Comment: This test is not suitable for patients receiving treatment with the drug brivaracetam (Briviact). The drug causes an interference that may lead to falsely elevated levetiracetam results. Reference ranges and high/low indicator flags are provided as general guidelines only. The treating physician must determine appropriate target levels/dosing based on the specific clinical situation. This test was developed, and its performance characteristics determined by the [facility] Department of Pathology and Laboratory Medicine. It has not been cleared or approved by the FDA. The [facility] Department of Pathology and Laboratory Medicine is regulated under CLIA as qualified to perform high-complexity testing. This test is used for clinical purposes. It should not be regarded as investigational or for research. Performed By: #### 3 0471-7 ####[facility] LABCLIA [id number] [address] CNOVon 10-24-2024 CNOV Office Visit (INTMWS ) ----- BRONSON WELLER ([id number]) 1965 M Date Time Provider Department 10/24/24 2:00 PM LOBITO MALDONADO INTMWS During your visit today, we recorded the following information about you: Temperature Pulse Respiration Blood pressure 97.8 degrees 108/minute 20/minute 104/70 Weight 81.2 kg Lobito Maldonado MD 10/24/2024 2:42 PM Signed This note was created using A-Gasriter. Subjective Patient presents with: F/U 3 Month Bronson Petersen Nithin is a 59 year old male. He [...] of Both Eyes Coronary Artery Disease Involving Torres Martinez Coronary Artery of Torres Martinez Heart Without Angina Pectoris Posttraumatic Stress Disorder [...] mouth. Blood-Glucose Meter,Continuous (FREESTYLE AGUSTIN 3 READER) [facility] [place] Check glucose 4 or more times daily. insulin glargine (LANTUS SOLOSTAR U-100 INSULIN) 100 unit/mL (3 mL) Inject 16 Units subcutaneously daily at bedtime. ursodiol (AILYN) 250 mg tablet Take 1 tablet by mouth twice daily. Per [facility]. xswwfb-ekaixqfn-psjwlwa (CREON) 12,000-38,000 -60,000 unit delayed release capsule [...] 10 mg tablet Take 1 tablet by aristeo (more content not included)... Normal [facility] 10-23-2024 [facility] Telephone (INTMWS) ----- BRONSON WELLER ([id number]) 1965 M Date Time Provider Department 10/23/24 LOBITO MALDONADO INTTonioWS During your visit today, we recorded the following information about you: Miguel Bridges 10/23/2024 12:25 PM Signed Patient came in today and was upset, because he said he received a call from [facility] telling him to come in at 12:30 for a Maldonado appt today that was marked as no show when he did not attend it for its 10:00 time. Davina Li RN 10/23/2024 12:27 PM Signed Patient calls and is upset about below. Please advise. UZMA Luna Elizabeth, MA 10/23/2024 1:14 PM Signed Left message apologizing for miscommunication/time error asked patient to call back so we can r/s. Patient in advised provider does not see patients from 12- due to lunch hours. ROSA Odonnell Helen E, LPN 10/24/2024 9:01 AM Signed Patient rescheduled for 10/24/2024. Rhona Samayoa LPN Allergies As of Date: 10/23/2024 Noted Allergy Reaction CYCLOBENZAPRINE 03/26/2021 9 - Itching IODINATED CONTRAST MEDIA 10/26/2022 9 - Itching IODINE 11/09/2022 9 - Itching LISINOPRIL 05/07/2013 7 - Swelling Comments: mouth and throat NARCOTICS (OPIOIDS - MORPHINE KELLY*11/27/2020 9 - Itching TRAMADOL 01/01/2016 9 - Itching VICODIN (HYDROCODONE-ACETAMINOPHE *05/07/2013 7 - Swelling Comments: mouth and throat Date Reviewed: 07/18/2024 Reviewed by: Kat Galindo OD - Fully Assessed Reason for Visit: Appointment [186] Prescriptions as of 10/24/2024 - amitriptyline (ELAVIL) 25 mg tablet Take 1 tablet by mouth daily at bedtime. - aspirin, enteric coated (ASPIRIN, ENTERIC COATED) 81 mg EC tablet Take 1 tablet by mouth once daily. - Cholecalciferol, Vitamin D3, 125 mcg (5,000 unit) cap Take 1 capsule by mouth once daily. - escitalopram oxalate (LEXAPRO) 10 mg tablet Take 1 tablet by mouth once daily. - gabapentin (NEURONTIN) 300 mg capsule Take 1 capsule by mouth two times a day for 90 days. - hydroCHLOROthiazide 25 mg tablet Take 1 tablet by mouth once daily. - loratadine (CLARITIN) 10 mg tablet Take 1 tablet by mouth once daily. - metFORMIN (GLUCOPHAGE) 500 mg tablet Take 1 tablet by mouth two times a day with meals. - pravastatin (PRAVACHOL) 20 mg tablet Take 1 tablet by mouth once daily. - FREESTYLE AGUSTIN 3 SENSOR josse Apply 1 Kit to affected area as directed. Change twice monthly. Check blood glucose four or more times daily. - magnesium oxide (MAG-OX) 400 mg (241.3 mg magnesium) tablet Take 1 tablet by mouth two times a day. - tamsulosin (FLOMAX) 0.4 mg Take 1 capsule by mouth once daily. 30 minutes after the same meal each day. - latanoprost (XALATAN) 0.005 % ophthalmic solution Use 1 Drop in both eyes daily at bedtime. - losartan (COZAAR) 25 mg tablet Take 1 tablet by mouth once daily. - pantoprazole DR (PROTONIX) 40 mg tablet Take 1 tablet by mouth once daily. - flash glucose sensor (FREESTYLE AGUSTIN 14 DAY SENSOR) kit 1 Each every 2 weeks. - ondansetron orally disintegrating (ZOFRAN ODT) 4 mg disintegrating tablet Take by mouth. - Blood-Glucose Meter,Continuous (FREESTYLE AGUSTIN 3 READER) [facility] Check glucose 4 or more times daily. - insulin glargine (LANTUS SOLOSTAR U-100 INSULIN) 100 unit/mL (3 mL) Inject 16 Units subcutaneously daily at bedtime. - ursodiol (AILYN) 250 mg tablet Take 1 tablet by mouth twice daily. [facility]. - wrkskr-zbqobsaa-wlmncga (CREON) 12,000-38,000 -60,000 unit delayed release capsule [...] as needed. Problem List As Of Date 10/23/2024 Noted Resolved DDD (degenerative disc disease), thoracic [M51.*10/21/2014 05/16/2022 Cervical radiculopathy [M54.12] 10/21/2014 Cervical strain [S16.1XXA] 10/21/2014 03/10/2022 Cervical spondylosis [M47.812] 10/21/2014 DDD (degenerative disc disease), cervical [M50.*10/21/2014 03/10/2022 Right hip pain [M25.551] 01/19/2015 05/16/2022 Lumbago [M54.50] 01/19/2015 NO SHOW (more content not included)... Normal [facility] Gastroenterology Visit Repor ton 10-09-2024 Gastroenterology Visit Report [facility] [address] [place] [address] OFFICE VISIT Date of Service: 10/09/24 MR#: [id number] Acct: [id number] Name: BRONSON WELLER Rep #: [id number] : 1965 Provider: Taras Santamaria DO Age/Sex: 59/M Location[place] [facility] Status: Signed Intake Vital Signs 02/25/24 11:03 08/13/24 00:22 Height 5 ft 10 in 5 ft 9 in Intake Visit Reasons: 6 M FU Chief Complaint: Allergies Iodinated Contrast Media Allergy (Mild, Verified 08/13/24 00:22) Rash hydromorphone (From Dilaudid) Allergy (Verified 08/13/24 00:22) Itching lisinopril Allergy (Verified 08/13/24 00:22) Angioedema cyclobenzaprine Adverse Reaction (Severe, Verified 08/13/24 00:22) Skin crawling hydrocodone bitartrate (From Vicodin) Adverse Reaction (Verified 08/13/24 00:22) Itching morphine Adverse Reaction (Verified 08/13/24 00:22) Itching tramadol Adverse Reaction (Verified 08/13/24 00:22) Itching Medications ???Medication ???Instructions ???Recorded ???Confirmed ???Type amitriptyline 25 mg tablet 25 mg PO QHS depression 07/03/18 10/09/24 History cholecalciferol (vitamin D3) 125 1 cap PO DAILY supplement 11/09/18 10/09/24 History mcg (5,000 unit) capsule hydrochlorothiazide 25 mg tablet 25 mg PO DAILY blood 06/05/20 10/09/24 Rx pressure/heart #30 tabs gabapentin 300 mg capsule 300 mg PO BID nerve pain 10/06/20 10/09/24 History metformin 500 mg tablet 500 mg PO BID diabetes #0 tabs 03/04/22 10/09/24 Rx aspirin 81 mg tablet,delayed 81 mg PO DAILY heart health 07/04/22 10/09/24 History release escitalopram oxalate 10 mg tablet 10 mg PO DAILY depression 07/04/22 10/09/24 History losartan 25 mg tablet 25 mg PO DAILY blood pressure 07/04/22 10/09/24 History pantoprazole 40 mg tablet,delayed 40 mg PO DAILY reflux #30 tabs 01/08/24 10/09/24 Rx release (Protonix) tamsulosin 0.4 mg capsule 0.4 mg PO DAILY@1730 prostate 30 01/08/24 10/09/24 Rx days #30 caps ursodiol 250 mg tablet 250 mg PO BID #180 TABLETS 01/29/24 10/09/24 Rx alizln-jlvbwgzt-grzdvxu 2 cap PO .COMPLEX #300 caps 02/08/24 10/09/24 Rx 12,000-38,000-60,000 unit capsule,delayed rel (Creon) insulin glargine 100 unit/mL (3 10 unit subcut QHS diabetes 02/25/24 10/09/24 History mL) subcutaneous pen (Lantus Solostar U-100 Insulin) latanoprost 0.005 % eye drops 1 drp ophthalmic (eye) QHS eye 02/25/24 10/09/24 History health loratadine 10 mg tablet 10 mg PO DAILY allergies 02/25/24 10/09/24 History magnesium oxide 400 mg (241.3 mg 400 mg PO BID 02/25/24 10/09/24 History magnesium) tablet pravastatin 20 mg tablet 20 mg PO DAILY cholesterol 02/25/24 10/09/24 History levetiracetam 500 mg tablet 500 mg PO BID #60 tabs 04/18/24 10/09/24 Rx levocarnitine 330 mg tablet 660 mg (2 x 330 mg) PO BID #120 04/18/24 10/09/24 Rx tabs amlodipine 10 mg tablet 10 mg PO DAILY blood pressure #90 05/24/24 10/09/24 Rx tabs hydromorphone 2 mg tablet 2 mg PO Q6H PRN pain 3 days #12 08/13/24 10/09/24 Rx (Dilaudid) tabs metoclopramide HCl 5 mg tablet 5 mg PO Q8H PRN PRN nausea and 08/13/24 10/09/24 Rx (Reglan) vomiting #10 tabs ondansetron 4 mg disintegrating 4 mg PO Q8H PRN nausea and vomiting 08/13/24 10/09/24 History tablet oxycodone-acetaminophen 5 mg-325 1 tab PO Q6H PRN pain 08/13/24 10/09/24 History mg tablet (Percocet) PFSH Medical History Bulging disc Liver fibrosis Myocardial infarct Stroke/cerebrovascular accident Alcohol [...] use type: does not use caffeine: No robbin/jew: Mosque seatbelt use: always HPI HPI Chief Complaint: Details: BRONSON WELLER is a 59 M who presents to the office today for follow up. MRCP 8.20.21 pancreatic fluid (more content not included)... Normal [facility] 12 Lead EKGon 08-13-2024 12 Lead EKG [facility] Cardiovascular Services [address] [place] [address] 12 Lead EKG 08/13/24 0044 MR#: [id number] Acct: [id number] Name: BRONSON WELLER Rep #: [id number] : 1965 59 From: Des Corrales MD Attending Dr: Status: DEP ER Ordering Dr: Neftali Dickson DO Date: 08/13/24 Location: ED Sex: M AA Admitted: Test Reason : PAIN Blood Pressure : */* mmHG Vent. Rate : 97 BPM Atrial Rate : 97 BPM P-R Int : 142 ms QRS Dur : 80 ms QT Int : 352 ms P-R-T Axes : 60 -17 46 degrees QTcB Int : 447 ms Normal sinus rhythm Minimal voltage criteria for LVH, may be normal variant ( R in aVL ) Nonspecific T wave abnormality Abnormal ECG Confirmed by SAVANNA CADE, DES ([id number]), digital editor KENDY STERN ([id number]) on 08/13/2024 1:54:41 PM Referred By: Confirmed By: DES CORRALES MD 08/13/24 8923 Date Des Corrales MD CC: Dr. Neftali Dickson DO; Dr. Lobito Maldonado MD Signed Normal [facility] Abdomen/Pelvis without Conto n 08-13-2024 Abdomen/Pelvis without Cont [facility] Imaging Services [address] [place] [address] Abdomen/Pelvis without Cont MR#: [id number] Acct: [id number] Name: BRONSON WELLER Rep #: [id number] : 1965 M 59 From: Eric Ceballos MD PCP: Dr. Lobito Maldonado MD Status: REG ER Study: Abdomen/Pelvis without Cont Date of Exam: 07/26 06/18 Exam# [id number] Ordering Dr: Neftali Dickson DO [id number] STUDY: CT ABDOMEN AND PELVIS WITH CONTRAST REASON FOR EXAM: Male, 59 years old. Abdominal pain RADIATION DOSAGE (If Supplied By Facility): CTDIvol = ( 6.69 ) mGy, DLP = ( 352.42 ) mGycm TECHNIQUE: Spiral CT imaging of the abdomen and pelvis was performed with intravenous contrast material ( / ), followed by coronal and sagittal reformatting. Individualized dose optimization techniques were used for this CT. COMPARISON: No relevant priors. FINDINGS: LOWER CHEST: Lung bases demonstrate bilateral dependent atelectasis versus scar formation. Normal heart. Normal pericardium. LIVER: Normal GALLBLADDER AND BILIARY TREE: Gallbladder is surgically absent. Normal biliary ductal system. SPLEEN: Normal PANCREAS: There is mild inflammatory stranding of the peripancreatic fat. No peripancreatic fluid. ADRENAL GLANDS: Normal KIDNEYS AND URETERS: There is a hypoattenuated lesion within the left upper renal pole measuring near water density Process. No visualized nephrolithiasis. BOWEL: Normal stomach. Normal small bowel. Normal appendix. Mild diverticular disease of the sigmoid colon without localized. PERITONEUM: No free intraperitoneal air or fluid. No intra-abdominal fluid collection. LYMPH NODES: No mesenteric, retroperitoneal, or pelvic lymphadenopathy. VESSELS: Mild atherosclerotic plaque of the abdominal vasculature. URINARY BLADDER: Normal REPRODUCTIVE ORGANS: Normal ABDOMINAL WALL: Normal BONES: Normal CT/Abdomen/Pelvis without Cont IMPRESSION: 1. Mild acute pancreatitis 2. Simple appearing left upper renal pole cyst. No further follow-up is necessary. 3. Mild sigmoid colonic diverticulosis without evidence of acute diverticulitis Electronically Signed: Eric Ceballos MD at 1:40 EST , CC: Dr. Neftali Dickson DO; Dr. Lobito Maldonado MD Environmental Attorney: Signed Normal [facility] Basic Metabolic Profile (BMP )on 08-13-2024 BUN/CRE 14.4 RATIO Normal 10-20 [facility] Comment on above: Order Comment: 'TROP ' Serial specimen #1, #2 or #3: 1 Performed By: #### L 3100.5017, L101.9900, L500.4050, L100.0100, L501.6710 #### [facility] [address] [place], [address] CA,Total 9.3 mg/dL Normal 8.5-10.1 [facility] Comment on above: Order Comment: 'TROP ' Serial specimen #1, #2 or #3: 1 Performed By: #### L 3100.5017, L101.9900, L500.4050, L100.0100, L501.6710 #### [facility] [address] [place], [address] Chloride [Moles/Vol] 102 mmol/L Normal 98-107 [facility] Comment on above: Order Comment: 'TROP ' Serial specimen #1, #2 or #3: 1 Performed By: #### L 3100.5017, L101.9900, L500.4050, L100.0100, L501.6710 #### [facility] [address] [place], [address] CO2 [Moles/Vol] 21.0 mmol/L Normal 21.0-32.0 [facility] Comment on above: Order Comment: 'TROP ' Serial specimen #1, #2 or #3: 1 Performed By: #### L 3100.5017, L101.9900, L500.4050, L100.0100, L501.6710 #### [facility] [address] [place], [address] Creatinine [Mass/Vol] 0.97 mg/dL Normal 0.70-1.30 [facility] Comment on above: Order Comment: 'TROP ' Serial specimen #1, #2 or #3: 1 Result Comment: The validity of the calculated GFR GFRAA in patients over 70 years has not been determined. Clinical correlation is essential. Performed By: #### L 3100.5017, L101.9900, L500.4050, L100.0100, L501.6710 #### [facility] [address] [place], [address] ECRCL 82.00 ml/min Normal [facility] Comment on above: Order Comment: 'TROP ' Serial specimen #1, #2 or #3: 1 Performed By: #### L 3100.5017, L101.9900, L500.4050, L100.0100, L501.6710 #### [facility] [address] [place], [address] EST GFR - AA 101 mL/min Normal >60 [facility] Comment on above: Order Comment: 'TROP ' Serial specimen #1, #2 or #3: 1 Result Comment: Afri can Lao GFR Calc Performed By: #### L 3100.5017, L101.9900, L500.4050, L100.0100, L501.6710 #### [facility] [address] [place], [address] GAP 12 Normal 5-15 [facility] Comment on above: Order Comment: 'TROP ' Serial specimen #1, #2 or #3: 1 Performed By: #### L 3100.5017, L101.9900, L500.4050, L100.0100, L501.6710 #### [facility] [address] [place], [address] GFR/1.73 sq M.predicted among non-blacks MDRD (S/P/Bld) [Vol rate/Area] 84 mL/min/{1.73_m2} Normal >60 [facility] Comment on above: Order Comment: 'TROP ' Serial specimen #1, #2 or #3: 1 Result Comment: Non- GFR Calc Performed By: #### L 3100.5017, L101.9900, L500.4050, L100.0100, L501.6710 #### [facility] [address] [place], [address] Glucose [Mass/Vol] 217 mg/dL High 74-106 [facility] Comment on above: Order Comment: 'TROP ' Serial specimen #1, #2 or #3: 1 Result Comment: Gluc ose result greater than or equal to 200 mg/dL suggests DIABETES MELLITUS per A.D.A. criteria. Performed By: #### L 3100.5017, L101.9900, L500.4050, L100.0100, L501.6710 #### [facility] [address] [place], [address] Potassium [Moles/Vol] 3.5 mmol/L Normal 3.5-5.1 [facility] Comment on above: Order Comment: 'TROP ' Serial specimen #1, #2 or #3: 1 Performed By: #### L 3100.5017, L101.9900, L500.4050, L100.0100, L501.6710 #### [facility] [address] [place], [address] Sodium [Moles/Vol] 134 mmol/L Low 136-145 [facility] Comment on above: Order Comment: 'TROP ' Serial specimen #1, #2 or #3: 1 Performed By: #### L 3100.5017, L101.9900, L500.4050, L100.0100, L501.6710 #### [facility] [address] [place], [address] Urea nitrogen [Mass/Vol] 14 mg/dL Normal 7-18 [facility] Comment on above: Order Comment: 'TROP ' Serial specimen #1, #2 or #3: 1 Performed By: #### L 3100.5017, L101.9900, L500.4050, L100.0100, L501.6710 #### [facility] [address] [place], [address] CBC W/Diff, Automatedon 07-26 Absolute Lymph 2.23 X10 3/uL Normal 0.83-4.51 [facility] Comment on above: Performed By: #### L 3100.5017, L101.9900, L500.4050, L100.0100, L501.6710 #### [facility] [address] [place], [address] Absolute Neut 12.2 X10 3/uL High 2.0-7.7 [facility] Comment on above: Performed By: #### L 3100.5017, L101.9900, L500.4050, L100.0100, L501.6710 #### [facility] [address] [place], [address] Basophils/100 WBC (Bld) 0.4 % Normal 0-1 [facility] Comment on above: Performed By: #### L 3100.5017, L101.9900, L500.4050, L100.0100, L501.6710 #### [facility] [address] [place], [address] Eosinophils/100 WBC (Bld) 0.3 % Normal 0-5 [facility] Comment on above: Performed By: #### L 3100.5017, L101.9900, L500.4050, L100.0100, L501.6710 #### [facility] [address] [place], [address] Erythrocyte distribution width (RBC) [Ratio] 13.0 % Normal 11.6-14.6 [facility] Comment on above: Performed By: #### L 3100.5017, L101.9900, L500.4050, L100.0100, L501.6710 #### [facility] [address] [place], [address] Hematocrit (Bld) [Volume fraction] 38.2 % Low 40-54 [facility] Comment on above: Performed By: #### L 3100.5017, L101.9900, L500.4050, L100.0100, L501.6710 #### [facility] [address] [place], [address] Hemoglobin (Bld) [Mass/Vol] 13.0 g/dL Normal 13.0-16.5 [facility] Comment on above: Performed By: #### L 3100.5017, L101.9900, L500.4050, L100.0100, L501.6710 #### [facility] [address] [place], [address] IG% 0.400 Normal 0.0-0.9 [facility] Comment on above: Result Comment: IG% - Immature Granulocytes (promyelocytes, myelocytes and metamyelocytes) > 1% indicates that a LEFT SHIFT is Present. Performed By: #### L 3100.5017, L101.9900, L500.4050, L100.0100, L501.6710 #### [facility] [address] [place], [address] Lymphocytes/100 WBC (Bld) 14.3 % Low 19-41 [facility] Comment on above: Performed By: #### L 3100.5017, L101.9900, L500.4050, L100.0100, L501.6710 #### [facility] [address] [place], [address] MCH (RBC) [Entitic mass] 31.7 pg Normal 27.0-32.0 [facility] Comment on above: Performed By: #### L 3100.5017, L101.9900, L500.4050, L100.0100, L501.6710 #### [facility] [address] [place], [address] MCHC (RBC) [Mass/Vol] 34.0 g/dL Normal 32-36 [facility] Comment on above: Performed By: #### L 3100.5017, L101.9900, L500.4050, L100.0100, L501.6710 #### [facility] [address] [place], [address] MCV (RBC) [Entitic vol] 93.2 fL Normal 80-94 [facility] Comment on above: Performed By: #### L 3100.5017, L101.9900, L500.4050, L100.0100, L501.6710 #### [facility] [address] [place], [address] Monocytes/100 WBC (Bld) 6.5 % Normal 0-10 [facility] Comment on above: Performed By: #### L 3100.5017, L101.9900, L500.4050, L100.0100, L501.6710 #### [facility] [address] [place], [address] Neutrophils/100 WBC (Bld) 78.1 % High 47-70 [facility] Comment on above: Performed By: #### L 3100.5017, L101.9900, L500.4050, L100.0100, L501.6710 #### [facility] [address] [place], [address] Nucleated RBC (Bld) [#/Vol] 0 10*3/uL Normal 0-5 [facility] Comment on above: Performed By: #### L 3100.5017, L101.9900, L500.4050, L100.0100, L501.6710 #### [facility] [address] [place], [address] Platelet mean volume (Bld) [Entitic vol] 9.5 fL Normal 6.2-12.0 [facility] Comment on above: Performed By: #### L 3100.5017, L101.9900, L500.4050, L100.0100, L501.6710 #### [facility] [address] [place], [address] Platelets (Bld) [#/Vol] 199 10*3/uL Normal 150-450 [facility] Comment on above: Performed By: #### L 3100.5017, L101.9900, L500.4050, L100.0100, L501.6710 #### [facility] [address] [place], [address] RBC (Bld) [#/Vol] 4.10 10*6/uL Low 4.6-6.2 [facility] Comment on above: Performed By: #### L 3100.5017, L101.9900, L500.4050, L100.0100, L501.6710 #### [facility] [address] [place], [address] RDW SD 44.4 fl High 35.1-43.9 [facility] Comment on above: Performed By: #### L 3100.5017, L101.9900, L500.4050, L100.0100, L501.6710 #### [facility] [address] [place], [address] WBC (Bld) [#/Vol] 15.6 10*3/uL High 4.4-11.0 [facility] Comment on above: Performed By: #### L 3100.5017, L101.9900, L500.4050, L100.0100, L501.6710 #### [facility] [address] [place], [address] Emergency Department Summary on 08-13-2024 Emergency Department Summary [facility] Medical Records Department [address] [place] [address] Emergency Department Summary 08/13/24 MR#: [id number] Acct: [id number] Name: BRONSON WELLER Rep #: [id number] : 1965 59 From: Neftali Dickson DO PCP: Dr. Lobito Maldonado MD Status:REG ER Location: ED HPI History of Present Illness Chief Complaint: Abd Pain PFSH PFS Medical History Bulging disc Liver fibrosis Myocardial infarct Stroke/cerebrovascular accident Alcohol [...] PO DAILY blood pressure 07/04/22 01/06/24 History pantoprazole 40 mg tablet,delayed 40 mg PO DAILY reflux #30 tabs 01/08/24 Unknown Rx release (Protonix) tamsulosin 0.4 mg capsule 0.4 mg PO DAILY@1730 prostate 30 01/08/24 Unknown Rx days #30 caps ursodiol 250 mg tablet 250 mg PO BID #180 TABLETS 01/29/24 Unknown Rx byugju-ikqmquip-iznktrx 2 cap PO .COMPLEX #300 caps 02/08/24 Unknown Rx 12,000-38,000-60,000 unit capsule,delayed rel (Creon) empagliflozin 10 mg tablet 10 mg PO DAILY diabetes 02/25/24 Unknown History (Jardiance) insulin glargine 100 unit/mL (3 10 unit subcut QHS diabetes 02/25/24 Unknown History mL) subcutaneous pen (Lantus Solostar U-100 Insulin) latanoprost 0.005 % eye drops 1 drp ophthalmic (eye) QHS eye 02/25/24 Unknown History health loratadine 10 mg tablet 10 mg PO DAILY allergies 02/25/24 Unknown History magnesium oxide 400 mg (241.3 mg 400 mg PO BID 02/25/24 Unknown History magnesium) tablet pravastatin 20 mg tablet 20 mg PO DAILY cholesterol 02/25/24 Unknown History levetiracetam 500 mg tablet 500 mg PO BID #60 tabs 04/18/24 Unknown Rx levocarnitine 330 mg tablet 660 mg (2 x 330 mg) PO BID #120 04/18/24 Unknown Rx tabs amlodipine 10 mg tablet 10 mg PO DAILY blood pressure #90 05/24/24 Unknown Rx tabs hydromorphone 2 mg tablet 2 mg PO Q6H PRN pain 3 days #12 08/13/24 Unknown Rx (Dilaudid) tabs metoclopramide HCl 5 mg tablet 5 mg PO Q8H PRN PRN nausea and 08/13/24 Unknown Rx (Reglan) vomiting #10 tabs ondansetron 4 mg disintegrating 4 mg PO Q8H PRN nausea and vomiting 08/13/24 Unknown History tablet oxycodone-acetaminophen 5 mg-325 1 tab PO Q6H PRN pain 08/13/24 Unknown History mg tablet (Percocet) Allergy/AdvReac Type Severity Reaction Status Date / Time Iodinated Contrast Media Allergy Mild Rash Verified 08/13/24 00:22 hydromorphone (From Dilaudid) Allergy Itching Verified 08/13/24 00:22 lisinopril Allergy Angioedema Verified 08/13/24 00:22 cyclobenzaprine AdvReac Severe Skin Verified 08/13/24 00:22 crawling hydrocodone bitartrate (From AdvReac Itching Verified 08/13/24 00:22 Vicodin) morphine AdvReac Itching Verified 08/13/24 00:22 tramadol AdvReac Itching Verified 08/13/24 00:22 Family History Mother Heart disease Sister Cerebral [...] use type: does not use caffeine: No robbin/jew: Mosque seatbelt use: always EXAM Physical Exam Const Vital Signs: 08/13/24 00:22 08/13/24 00:45 Temperature 98.9 F Temperature Sour (more content not included)... Normal [facility] L501.4020on 08-13-2024 TROPONIN-I HS 4 pg/mL Normal 3.0-78.0 [facility] Comment on above: Order Comment: 'TROP ' Serial specimen #1, #2 or #3: 1 Result Comment: Plea se Note: New Test Units and Gender Specific Reference Ranges. For more information see Policy Stat Procedure [place] High Sensitivity Troponin (TNIH) and attachments. Performed By: #### L 3100.5017, L101.9900, L500.4050, L100.0100, L501.6710 #### [facility] [address] [place], [address] Lipaseon 08-13-2024 Lipase [Catalytic activity/Vol] 402 U/L High 13-75 [facility] Comment on above: Order Comment: 'TROP ' Serial specimen #1, #2 or #3: 1 Result Comment: Roberto Carlos kwon note: LIPASE revised reference range effective 23. New Lipase methodology. Expected to produce lower values than the previous assay method. NEW Reference Range: 13 - 75 U/L Performed By: #### L 3100.5017, L101.9900, L500.4050, L100.0100, L501.6710 #### [facility] [address] [place], [address] Liver Profileon 08-13-2024 Albumin [Mass/Vol] 4.6 g/dL Normal 3.2-5.0 [facility] Comment on above: Order Comment: 'TROP ' Serial specimen #1, #2 or #3: 1 Performed By: #### L 3100.5017, L101.9900, L500.4050, L100.0100, L501.6710 #### [facility] [address] [place], [address] ALK P 65 U/L Normal 45-117 [facility] Comment on above: Order Comment: 'TROP ' Serial specimen #1, #2 or #3: 1 Performed By: #### L 3100.5017, L101.9900, L500.4050, L100.0100, L501.6710 #### [facility] [address] [place], [address] ALT [Catalytic activity/Vol] 13 U/L Low 16-61 [facility] Comment on above: Order Comment: 'TROP ' Serial specimen #1, #2 or #3: 1 Performed By: #### L 3100.5017, L101.9900, L500.4050, L100.0100, L501.6710 #### [facility] [address] [place], [address] AST [Catalytic activity/Vol] 10 U/L Low 15-37 [facility] Comment on above: Order Comment: 'TROP ' Serial specimen #1, #2 or #3: 1 Performed By: #### L 3100.5017, L101.9900, L500.4050, L100.0100, L501.6710 #### [facility] [address] [place], [address] Bilirubin [Mass/Vol] 0.80 mg/dL Normal 0.20-1.00 [facility] Comment on above: Order Comment: 'TROP ' Serial specimen #1, #2 or #3: 1 Result Comment: For patients on eltrombopag therapy, use of Dimension [place] TBIL is not recommended. Performed By: #### L 3100.5017, L101.9900, L500.4050, L100.0100, L501.6710 #### [facility] [address] [place], [address] Bilirubin.direct [Mass/Vol] 0.29 mg/dL Normal 0.00-0.30 [facility] Comment on above: Order Comment: 'TROP ' Serial specimen #1, #2 or #3: 1 Performed By: #### L 3100.5017, L101.9900, L500.4050, L100.0100, L501.6710 #### [facility] [address] [place], [address] Globulin (S) [Mass/Vol] 3.7 g/dL Normal 2.2-4.2 [facility] Comment on above: Order Comment: 'TROP ' Serial specimen #1, #2 or #3: 1 Performed By: #### L 3100.5017, L101.9900, L500.4050, L100.0100, L501.6710 #### [facility] [address] [place], [address] T PROT 8.3 g/dL High 6.4-8.2 [facility] Comment on above: Order Comment: 'TROP ' Serial specimen #1, #2 or #3: 1 Performed By: #### L 3100.5017, L101.9900, L500.4050, L100.0100, L501.6710 #### [facility] [address] [place], [address] CBC W/Diff, Automatedon 11- Absolute Lymph 2.25 X10 3/uL Normal 0.83-4.51 [facility] Comment on above: Performed By: #### L 3100.5017, L101.9900, L500.4050, L100.0100, L501.6710 #### [facility] [address] [place], [address] Absolute Neut 7.9 X10 3/uL High 2.0-7.7 [facility] Comment on above: Performed By: #### L 3100.5017, L101.9900, L500.4050, L100.0100, L501.6710 #### [facility] [address] [place], [address] Basophils/100 WBC (Bld) 0.4 % Normal 0-1 [facility] Comment on above: Performed By: #### L 3100.5017, L101.9900, L500.4050, L100.0100, L501.6710 #### [facility] [address] [place], [address] Eosinophils/100 WBC (Bld) 1.0 % Normal 0-5 [facility] Comment on above: Performed By: #### L 3100.5017, L101.9900, L500.4050, L100.0100, L501.6710 #### [facility] [address] [place], [address] Erythrocyte distribution width (RBC) [Ratio] 13.1 % Normal 11.6-14.6 [facility] Comment on above: Performed By: #### L 3100.5017, L101.9900, L500.4050, L100.0100, L501.6710 #### [facility] [address] [place], [address] Hematocrit (Bld) [Volume fraction] 38.1 % Low 40-54 [facility] Comment on above: Performed By: #### L 3100.5017, L101.9900, L500.4050, L100.0100, L501.6710 #### [facility] [address] [place], [address] Hemoglobin (Bld) [Mass/Vol] 13.0 g/dL Normal 13.0-16.5 [facility] Comment on above: Performed By: #### L 3100.5017, L101.9900, L500.4050, L100.0100, L501.6710 #### [facility] [address] [place], [address] IG% 0.400 Normal 0.0-0.9 [facility] Comment on above: Result Comment: IG% - Immature Granulocytes (promyelocytes, myelocytes and metamyelocytes) > 1% indicates that a LEFT SHIFT is Present. Performed By: #### L 3100.5017, L101.9900, L500.4050, L100.0100, L501.6710 #### [facility] [address] [place], [address] Lymphocytes/100 WBC (Bld) 20.2 % Normal 19-41 [facility] Comment on above: Performed By: #### L 3100.5017, L101.9900, L500.4050, L100.0100, L501.6710 #### [facility] [address] [place], [address] MCH (RBC) [Entitic mass] 31.9 pg Normal 27.0-32.0 [facility] Comment on above: Performed By: #### L 3100.5017, L101.9900, L500.4050, L100.0100, L501.6710 #### [facility] [address] [place], [address] MCHC (RBC) [Mass/Vol] 34.1 g/dL Normal 32-36 [facility] Comment on above: Performed By: #### L 3100.5017, L101.9900, L500.4050, L100.0100, L501.6710 #### [facility] [address] [place], [address] MCV (RBC) [Entitic vol] 93.6 fL Normal 80-94 [facility] Comment on above: Performed By: #### L 3100.5017, L101.9900, L500.4050, L100.0100, L501.6710 #### [facility] [address] [place], [address] Monocytes/100 WBC (Bld) 6.5 % Normal 0-10 [facility] Comment on above: Performed By: #### L 3100.5017, L101.9900, L500.4050, L100.0100, L501.6710 #### [facility] [address] [place], [address] Neutrophils/100 WBC (Bld) 71.5 % High 47-70 [facility] Comment on above: Performed By: #### L 3100.5017, L101.9900, L500.4050, L100.0100, L501.6710 #### [facility] [address] [place], [address] Nucleated RBC (Bld) [#/Vol] 0 10*3/uL Normal 0-5 [facility] Comment on above: Performed By: #### L 3100.5017, L101.9900, L500.4050, L100.0100, L501.6710 #### [facility] [address] [place], [address] Platelet mean volume (Bld) [Entitic vol] 9.7 fL Normal 6.2-12.0 [facility] Comment on above: Performed By: #### L 3100.5017, L101.9900, L500.4050, L100.0100, L501.6710 #### [facility] [address] [place], [address] Platelets (Bld) [#/Vol] 197 10*3/uL Normal 150-450 [facility] Comment on above: Performed By: #### L 3100.5017, L101.9900, L500.4050, L100.0100, L501.6710 #### [facility] [address] [place], [address] RBC (Bld) [#/Vol] 4.07 10*6/uL Low 4.6-6.2 [facility] Comment on above: Performed By: #### L 3100.5017, L101.9900, L500.4050, L100.0100, L501.6710 #### [facility] [address] [place], [address] RDW SD 45.1 fl High 35.1-43.9 [facility] Comment on above: Performed By: #### L 3100.5017, L101.9900, L500.4050, L100.0100, L501.6710 #### [facility] [address] [place], [address] WBC (Bld) [#/Vol] 11.1 10*3/uL High 4.4-11.0 [facility] Comment on above: Performed By: #### L 3100.5017, L101.9900, L500.4050, L100.0100, L501.6710 #### [facility] [address] [place], [address] Comprehensive Metabolic Prof ilon 08-12-2024 Albumin [Mass/Vol] 4.3 g/dL Normal 3.2-5.0 [facility] Comment on above: Performed By: #### L 3100.5017, L101.9900, L500.4050, L100.0100, L501.6710 #### [facility] [address] [place], [address] Albumin/Globulin [Mass ratio] 1.3 {ratio} Normal 0.9-2.4 [facility] Comment on above: Performed By: #### L 3100.5017, L101.9900, L500.4050, L100.0100, L501.6710 #### [facility] [address] [place], [address] ALK P 65 U/L Normal 45-117 [facility] Comment on above: Performed By: #### L 3100.5017, L101.9900, L500.4050, L100.0100, L501.6710 #### [facility] [address] [place], [address] ALT [Catalytic activity/Vol] 13 U/L Low 16-61 [facility] Comment on above: Performed By: #### L 3100.5017, L101.9900, L500.4050, L100.0100, L501.6710 #### [facility] [address] [place], [address] AST [Catalytic activity/Vol] 10 U/L Low 15-37 [facility] Comment on above: Performed By: #### L 3100.5017, L101.9900, L500.4050, L100.0100, L501.6710 #### [facility] [address] [place], [address] Bilirubin [Mass/Vol] 0.60 mg/dL Normal 0.20-1.00 [facility] Comment on above: Result Comment: For patients on eltrombopag therapy, use of Dimension [place] TBIL is not recommended. Performed By: #### L 3100.5017, L101.9900, L500.4050, L100.0100, L501.6710 #### [facility] [address] [place], [address] BUN/CRE 14.3 RATIO Normal 10-20 [facility] Comment on above: Performed By: #### L 3100.5017, L101.9900, L500.4050, L100.0100, L501.6710 #### [facility] [address] [place], [address] CA,Total 9.4 mg/dL Normal 8.5-10.1 [facility] Comment on above: Performed By: #### L 3100.5017, L101.9900, L500.4050, L100.0100, L501.6710 #### [facility] [address] [place], [address] Chloride [Moles/Vol] 103 mmol/L Normal 98-107 [facility] Comment on above: Performed By: #### L 3100.5017, L101.9900, L500.4050, L100.0100, L501.6710 #### [facility] [address] [place], [address] CO2 [Moles/Vol] 27.0 mmol/L Normal 21.0-32.0 [facility] Comment on above: Performed By: #### L 3100.5017, L101.9900, L500.4050, L100.0100, L501.6710 #### [facility] [address] [place], [address] Creatinine [Mass/Vol] 1.12 mg/dL Normal 0.70-1.30 [facility] Comment on above: Result Comment: The validity of the calculated GFR GFRAA in patients over 70 years has not been determined. Clinical correlation is essential. Performed By: #### L 3100.5017, L101.9900, L500.4050, L100.0100, L501.6710 #### [facility] [address] [place], [address] ECRCL 71.02 ml/min Normal [facility] Comment on above: Performed By: #### L 3100.5017, L101.9900, L500.4050, L100.0100, L501.6710 #### [facility] [address] [place], [address] EST GFR - AA 86 mL/min Normal >60 [facility] Comment on above: Result Comment: Afri can Lao GFR Calc Performed By: #### L 3100.5017, L101.9900, L500.4050, L100.0100, L501.6710 #### [facility] [address] [place], [address] GAP 7 Normal 5-15 [facility] Comment on above: Performed By: #### L 3100.5017, L101.9900, L500.4050, L100.0100, L501.6710 #### [facility] [address] [place], [address] GFR/1.73 sq M.predicted among non-blacks MDRD (S/P/Bld) [Vol rate/Area] 71 mL/min/{1.73_m2} Normal >60 [facility] Comment on above: Result Comment: Non- GFR Calc Performed By: #### L 3100.5017, L101.9900, L500.4050, L100.0100, L501.6710 #### [facility] [address] [place], [address] Globulin (S) [Mass/Vol] 3.4 g/dL Normal 2.2-4.2 [facility] Comment on above: Performed By: #### L 3100.5017, L101.9900, L500.4050, L100.0100, L501.6710 #### [facility] [address] [place], [address] Glucose [Mass/Vol] 278 mg/dL High 74-106 [facility] Comment on above: Result Comment: Gluc ose result greater than or equal to 200 mg/dL suggests DIABETES MELLITUS per A.D.A. criteria. Performed By: #### L 3100.5017, L101.9900, L500.4050, L100.0100, L501.6710 #### [facility] [address] [place], [address] Potassium [Moles/Vol] 4.1 mmol/L Normal 3.5-5.1 [facility] Comment on above: Performed By: #### L 3100.5017, L101.9900, L500.4050, L100.0100, L501.6710 #### [facility] [address] [place], [address] Sodium [Moles/Vol] 137 mmol/L Normal 136-145 [facility] Comment on above: Performed By: #### L 3100.5017, L101.9900, L500.4050, L100.0100, L501.6710 #### [facility] [address] [place], [address] T PROT 7.7 g/dL Normal 6.4-8.2 [facility] Comment on above: Performed By: #### L 3100.5017, L101.9900, L500.4050, L100.0100, L501.6710 #### [facility] [address] [place], [address] Urea nitrogen [Mass/Vol] 16 mg/dL Normal - [facility] Comment on above: Performed By: #### L 3100.5017, L101.9900, L500.4050, L100.0100, L501.6710 #### [facility] [address] [place], [address] Emergency Department Summary on 08-12-2024 Emergency Department Summary [facility] Medical Records Department [address] [place] [address] Emergency Department Summary 08/12/24 MR#: [id number] Acct: [id number] Name: BRONSON WELLER Rep #: [id number] : 1965 59 From: Genaro Trammell MD PCP: Dr. Lobito Maldonado MD Status:REG ER Location: ED HPI HPI - GI History of Present Illness Chief Complaint: Abd Pain Detail of Chief Complaint: Sharp pain epigastric radiating around to the flank then to the left scapul Informant: patient Abdominal Pain/Flank Pain Onset: Days (Onset Monday, August 09) Context: Sudden Onset Timing: Continuous Quality: Sharp Location: Epigastric, RUQ and Right Flank Current Severity: Mild Maximum Severity: Moderate Worsened by: Food and - (Even water and what he takes his medication) Nausea/Vomiting/Emesis GI Symptom: Positive for Nausea; Negative for Vomiting Diarrhea/Melena/Hematoche von GI Symptom: Negative for Diarrhea, Melena or Hematochezia Associated Symptoms Associated Symptoms: Negative for Dysuria, Frequency, Hematuria or Urgency LMP: Not applicable Narrative Narrative: Patient is a 59-year-old male. He has history of pancreatitis due to alcoholism. He states he has not had an alcoholic beverage in 1 year. He is status postcholecystectomy. Cholecystectomy performed by Dr. Felix several years ago. Review of records also indicates he has history of fatty liver. There is no history of renal ureterolithiasis. Patient presents because of pain that he describes as sharp in the epigastric going to the right upper quadrant around to the right flank area and then occasionally to the left scapular region. He denies chest pain. He denies dyspnea, dyspnea exertion, orthopnea or PND. He denies fever, chills night sweats. Nothing makes the pain better. If he drinks water, eats or takes his medication the pain is worse. The pain is not positional. He denies black or maroon-colored stool. He states his stool is brown. He has no history of renal or ureterolithiasis. He denies urologic symptoms. He reports compliance with his medicine and specifically Protonix. Patient states the last time is here is told to stop his Giardia. He was not certain why. Will review prior ER records to determine why he was told this. Patient was seen on June 19, [address] oRgel. He was admitted at that time. Patient was noted to have a high anion gap.Patient was admitted for DKA. The hospitalist note was reviewed. Assessment was DKA causing his abdominal pain. He also has history of chronic pancreatitis and fatty liver. Prior similar symptoms: Yes Recent Illness/Hospitalization: Yes (Seen last month for abdominal pain) [facility] Medical History Bulging disc Liver fibrosis Myocardial infarct Stroke/cerebrovascular accident Alcohol [...] 40 mg tablet,delayed 40 mg PO DAILY reflux #30 tabs 01/08/24 Unknown Rx release (Protonix) tamsulosin 0.4 mg capsule 0.4 mg PO DAILY@1730 prostate 30 01/08/24 Unknown Rx days #30 caps ursodiol 250 mg tablet 250 mg PO BID #180 TABLETS 01/29/24 Unknown Rx atqwgk-srvxxkqm-zvktmai 2 cap PO .COMPLEX #300 caps 02/08/24 Unknown Rx 12,000-38,000-60,000 unit capsule,delayed rel (Creon) empagliflozin 10 mg tablet 10 mg PO DAILY diabetes 02/25/24 Unknown History (Jardiance) insulin glargine 100 unit/mL (3 10 unit subcut QHS diabetes 02/25/24 Unknown History mL) subcutaneous pen (Lantus Solostar U-100 (more content not included)... Normal [facility] Lipaseon 08-12-2024 Lipase [Catalytic activity/Vol] 189 U/L High 13-75 [facility] Comment on above: Result Comment: Roberto Carlos kwon note: LIPASE revised reference range effective 23. New Lipase methodology. Expected to produce lower values than the previous assay method. NEW Reference Range: 13 - 75 U/L Performed By: #### L 3100.5017, L101.9900, L500.4050, L100.0100, L501.6710 #### [facility] [address] [place], [address] [facility] BRONSON WELLER ([id number]) 1965 M Date Time Provider Department 07/31/24 LOBITO MALDONADO During your visit today, we recorded the following information about you: Rhona Samayoa LPN 07/31/2024 2:11 PM Signed ----- Message from Lobito Maldonado MD sent at 07/31/2024 1:39 PM EST ----- Labs are okay in general. Diabetes controlled. Schedule follow up in 3 months. Rhona Samayoa LPN 07/31/2024 2:15 PM Signed Patient notified of below results, 3 month follow-up scheduled. Rhona Samayoa LPN Allergies As of Date: 07/31/2024 Noted Allergy Reaction CYCLOBENZAPRINE 03/26/2021 9 - Itching IODINATED CONTRAST MEDIA 10/26/2022 9 - Itching IODINE 11/09/2022 9 - Itching LISINOPRIL 05/07/2013 7 - Swelling Comments: mouth and throat NARCOTICS (OPIOIDS - MORPHINE KELLY*11/27/2020 9 - Itching TRAMADOL 01/01/2016 9 - Itching VICODIN (HYDROCODONE-ACETAMINOPHE *05/07/2013 7 - Swelling Comments: mouth and throat Date Reviewed: 07/18/2024 Reviewed by: Kat Galindo OD - Fully Assessed Reason for Visit: Results [95] Prescriptions as of 07/31/2024 - latanoprost (XALATAN) 0.005 % ophthalmic solution Use 1 Drop in both eyes daily at bedtime. - amitriptyline (ELAVIL) 25 mg tablet Take 1 tablet by mouth daily at bedtime. - aspirin, enteric coated (ASPIRIN, ENTERIC COATED) 81 mg EC tablet Take 1 tablet by mouth once daily. - Cholecalciferol, Vitamin D3, 125 mcg (5,000 unit) cap Take 1 capsule by mouth once daily. - escitalopram oxalate (LEXAPRO) 10 mg tablet Take 1 tablet by mouth once daily. - gabapentin (NEURONTIN) 300 mg capsule Take 1 capsule by mouth two times a day for 90 days. - hydroCHLOROthiazide 25 mg tablet Take 1 tablet by mouth once daily. - loratadine (CLARITIN) 10 mg tablet Take 1 tablet by mouth once daily. - losartan (COZAAR) 25 mg tablet Take 1 tablet by mouth once daily. - metFORMIN (GLUCOPHAGE) 500 mg tablet Take 1 tablet by mouth two times a day with meals. - pravastatin (PRAVACHOL) 20 mg tablet Take 1 tablet by mouth once daily. - pantoprazole DR (PROTONIX) 40 mg tablet Take 1 tablet by mouth once daily. - flash glucose sensor (FREESTYLE AGUSTIN 14 DAY SENSOR) kit 1 Each every 2 weeks. - FREESTYLE AGUSTIN 3 SENSOR josse Apply 1 Kit to affected area as directed. Change twice monthly. Check blood glucose four or more times daily. - magnesium oxide (MAG-OX) 400 mg (241.3 mg magnesium) tablet Take 1 tablet by mouth two times a day. - tamsulosin (FLOMAX) 0.4 mg Take 1 capsule by mouth once daily. 30 minutes after the same meal each day. - ondansetron orally disintegrating (ZOFRAN ODT) 4 mg disintegrating tablet Take by mouth. - Blood-Glucose Meter,Continuous (FREESTYLE AGUSTIN 3 READER) [facility] Check glucose 4 or more times daily. - insulin glargine (LANTUS SOLOSTAR U-100 INSULIN) 100 unit/mL (3 mL) Inject 16 Units subcutaneously daily at bedtime. - ursodiol (AILYN) 250 mg tablet Take 1 tablet by mouth twice daily. Per [facility]. - eokiun-hivovlvd-gdsqiuz (CREON) 12,000-38,000 -60,000 unit delayed release capsule [...] as needed. Problem List As Of Date 07/31/2024 Noted Resolved DDD (degenerative disc disease), thoracic [...] PSA [R97.20] 12/01/2020 05/16/2022 Prostate cancer (HCC) (more content not included)... Normal [facility] CBC panel Auto (Bld)on 07-22 Erythrocyte distribution width (RBC) [Ratio] 12.6 % Normal 11.5-15.0 [facility] Comment on above: Order Comment: Speci men Type: BLOOD SPECIMENOrdering Facility: [facility] Address: [address] [place] [address] Performed By: #### 5 8410-2 ####[facility] LABCLIA [id number] [place] [address] [place] Hematocrit (Bld) [Volume fraction] 40.7 % Normal 39.0-51.0 [facility] Comment on above: Order Comment: Speci men Type: BLOOD SPECIMENOrdering Facility: [facility] Address: [address] [place] [address] Performed By: #### 5 8410-2 ####[facility] LABCLIA [id number] [place] [address] [place] Hemoglobin (Bld) [Mass/Vol] 13.5 g/dL Normal 13.0-17.0 [facility] Comment on above: Order Comment: Speci men Type: BLOOD SPECIMENOrdering Facility: [facility] Address: [address] [place] [address] Performed By: #### 5 8410-2 ####[facility] LABCLIA [id number] [place] [address] [place] MCH (RBC) [Entitic mass] 31.6 pg Normal 26.0-34.0 [facility] Comment on above: Order Comment: Speci men Type: BLOOD SPECIMENOrdering Facility: [facility] Address: [address] [place] [address] Performed By: #### 5 8410-2 ####[facility] LABCLIA [id number] [place] [address] [place] MCHC (RBC) [Mass/Vol] 33.2 g/dL Normal 30.5-36.0 [facility] Comment on above: Order Comment: Speci men Type: BLOOD SPECIMENOrdering Facility: [facility] Address: [address] [place] [address] Performed By: #### 5 8410-2 ####[facility] LABCLIA [id number] [place] [address] [place] MCV (RBC) [Entitic vol] 95.3 fL Normal 80.0-100.0 [facility] Comment on above: Order Comment: Speci men Type: BLOOD SPECIMENOrdering Facility: [facility] Address: [address] [place] [address] Performed By: #### 5 8410-2 ####[facility] LABCLIA [id number] [place] [address] [place] Nucleated RBC (Bld) [#/Vol] 10*3/uL Normal <0.01 [facility] Comment on above: Order Comment: Speci men Type: BLOOD SPECIMENOrdering Facility: [facility] Address: [address] [place] [address] Performed By: #### 5 8410-2 ####[facility] LABIA [id number] [place] [address] [place] Platelet mean volume (Bld) [Entitic vol] 10.5 fL Normal 9.0-12.7 [facility] Comment on above: Order Comment: Speci men Type: BLOOD SPECIMENOrdering Facility: [facility] Address: [address] [place] [address] Performed By: #### 5 8410-2 ####[facility] LABIA [id number] [place] [address] [place] Platelets (Bld) [#/Vol] 205 10*3/uL Normal 150-400 [facility] Comment on above: Order Comment: Speci men Type: BLOOD SPECIMENOrdering Facility: [facility] Address: [address] [place] [address] Performed By: #### 5 8410-2 ####[facility] LABIA [id number] [place] [address] [place] RBC (Bld) [#/Vol] 4.27 10*6/uL Normal 4.20-6.00 [facility] Comment on above: Order Comment: Speci men Type: BLOOD SPECIMENOrdering Facility: [facility] Address: [address] [place] [address] Performed By: #### 5 8410-2 ####[facility] LABIA [id number] [place] [address] [place] WBC (Bld) [#/Vol] 10.63 10*3/uL Normal 3.70-11.00 [facility] Comment on above: Order Comment: Speci men Type: BLOOD SPECIMENOrdering Facility: [facility] Address: [address] [place] [address] Performed By: #### 5 8410-2 ####[facility] LABCLIA [id number] [place] [address] [place] Comprehensive metabolic 2000 panelon 07-22-2024 Albumin [Mass/Vol] 4.7 g/dL Normal 3.9-4.9 [facility] Comment on above: Order Comment: Speci men Type: BLOOD SPECIMENOrdering Facility: [facility] Address: [address] [place] [address] Performed By: #### 2 4323-8 ####[facility] LABCLIA [id number] [place] [address] [place] ALP [Catalytic activity/Vol] 58 U/L Normal 38-113 [facility] Comment on above: Order Comment: Speci men Type: BLOOD SPECIMENOrdering Facility: [facility] Address: [address] [place] [address] Performed By: #### 2 4323-8 ####[facility] LABCLIA [id number] [place] [address] [place] ALT [Catalytic activity/Vol] 16 U/L Normal 10-54 [facility] Comment on above: Order Comment: Speci men Type: BLOOD SPECIMENOrdering Facility: [facility] Address: [address] [place] [address] Performed By: #### 2 4323-8 ####[facility] LABCLIA [id number] [place] [address] [place] Anion gap [Moles/Vol] 13 mmol/L Normal 8-15 [facility] Comment on above: Order Comment: Speci men Type: BLOOD SPECIMENOrdering Facility: [facility] Address: [address] [place] [address] Performed By: #### 2 4323-8 ####[facility] LABCLIA [id number] [place] [address] [place] AST [Catalytic activity/Vol] 13 U/L Low 14-40 [facility] Comment on above: Order Comment: Speci men Type: BLOOD SPECIMENOrdering Facility: [facility] Address: [address] [place] [address] Performed By: #### 2 4323-8 ####[facility] LABCLIA [id number] [place] [address] [place] Bilirubin [Mass/Vol] 0.8 mg/dL Normal 0.2-1.3 [facility] Comment on above: Order Comment: Speci men Type: BLOOD SPECIMENOrdering Facility: [facility] Address: [address] [place] [address] Performed By: #### 2 4323-8 ####[facility] LABCLIA [id number] [place] [address] [place] Calcium [Mass/Vol] 10.1 mg/dL Normal 8.5-10.2 [facility] Comment on above: Order Comment: Speci men Type: BLOOD SPECIMENOrdering Facility: [facility] Address: [address] [place] [address] Performed By: #### 2 4323-8 ####[facility] LABCLIA [id number] [place] [address] [place] Chloride [Moles/Vol] 98 mmol/L Normal 98-107 [facility] Comment on above: Order Comment: Speci men Type: BLOOD SPECIMENOrdering Facility: [facility] Address: [address] [place] [address] Performed By: #### 2 4323-8 ####[facility] LABCLIA [id number] [id number] [address] [place] CO2 [Moles/Vol] 26 mmol/L Normal 22-30 [facility] Comment on above: Order Comment: Speci men Type: BLOOD SPECIMENOrdering Facility: [facility] Address: [address] [place] [address] Performed By: #### 2 4323-8 ####[facility] LABCLIA [id number] [place] [address] [place] Creatinine [Mass/Vol] 0.93 mg/dL Normal 0.73-1.22 [facility] Comment on above: Order Comment: Speci men Type: BLOOD SPECIMENOrdering Facility: [facility] Address: [address] [place] [address] Performed By: #### 2 4323-8 ####[facility] LABCLIA [id number] [place] [address] [place] Creatinine and Glomerular filtration rate.predicted panel (S/P/Bld) 95 mL/min/1.73m??? Normal >=60 [facility] Comment on above: Order Comment: Speci men Type: BLOOD SPECIMENOrdering Facility: [facility] Address: [address] [place] [address] Result Comment: Ana Maria mated Glomerular Filtration Rate (eGFR) is calculated using the 2020 CKD-EPI creatinine equation. This equation utilizes serum creatinine, sex, and age as parameters. The creatinine assay has traceable calibration to isotope dilution-mass spectrometry. Refer to KDIGO guidelines for clinical interpretation. In patients with unstable renal function, e.g. those with acute kidney injury, the eGFR may not accurately reflect actual GFR. Performed By: #### 2 4323-8 ####[facility] LABCLIA [id number] [place] [address] [place] Glucose [Mass/Vol] 184 mg/dL High 74-99 [facility] Comment on above: Order Comment: Speci men Type: BLOOD SPECIMENOrdering Facility: [facility] Address: [address] [place] [address] Result Comment: The [place] Diabetes Association (ADA) provides guidance for cutoff values for fasting glucose and random glucose. The ADA defines fasting as no caloric intake for at least 8 hours. Fasting plasma glucose results between 100 to 125 mg/dL indicate increased risk for diabetes (prediabetes). Fasting plasma glucose results greater than or equal to 126 mg/dL meet the criteria for diagnosis of diabetes. In the absence of unequivocal hyperglycemia, results should be confirmed by repeat testing. In a patient with classic symptoms of hyperglycemia or hyperglycemic crisis, random plasma glucose results greater than or equal to 200 mg/dL meet the criteria for diagnosis of diabetes. Reference: Standards of Medical Care in Diabetes 2016, [place] Diabetes Association. Diabetes Care. 2016.39(Suppl 1). Performed By: #### 2 4323-8 ####[facility] LABCLIA [id number] [place] [address] [place] Potassium [Moles/Vol] 3.9 mmol/L Normal 3.7-5.1 [facility] Comment on above: Order Comment: Speci men Type: BLOOD SPECIMENOrdering Facility: [facility] Address: [address] [place] [address] Performed By: #### 2 4323-8 ####[facility] LABCLIA [id number] [place] [address] [place] Protein [Mass/Vol] 7.6 g/dL Normal 6.3-8.0 [facility] Comment on above: Order Comment: Speci men Type: BLOOD SPECIMENOrdering Facility: [facility] Address: [address] [place] [address] Performed By: #### 2 4323-8 ####[facility] LABCLIA [id number] [place] [address] [place] Sodium [Moles/Vol] 137 mmol/L Normal 136-144 [facility] Comment on above: Order Comment: Speci men Type: BLOOD SPECIMENOrdering Facility: [facility] Address: [address] [place] [address] Performed By: #### 2 4323-8 ####[facility] LABCLIA [id number] [place] [address] [place] Urea nitrogen [Mass/Vol] 18 mg/dL Normal 9-24 [facility] Comment on above: Order Comment: Isidro medeiros Type: BLOOD SPECIMENOrdering Facility: [facility] Address: [address] [place] [address] Performed By: #### 2 4323-8 ####[place] [id number] [place] [address] [place] HbA1c (Bld)on 07-22-2024 Average glucose Estimated from glycated hemoglobin (Bld) [Mass/Vol] 160 mg/dL Normal [facility] Comment on above: Order Comment: Isidro medeiros Type: BLOOD SPECIMENOrdering Facility: [facility] Address: [address] [place] [address] Result Comment: eAG: (Estimated average glucose) is a calculated value from HgbA1c and is underwriting sales representative of the average blood glucose level in the last 2-3 month period. Performed By: #### 5 5454-3 ####[place] [id number] [place] [address] [place] HbA1c (Bld) [Mass fraction] 7.2 % High 4.3-5.6 [facility] Comment on above: Order Comment: Isidro medeiros Type: BLOOD SPECIMENOrdering Facility: [facility] Address: [address] [place] [address] Result Comment: [place] Diabetes Association guidelines indicate that patients with HgbA1c in the range 5.7-6.4% are at increased risk for development of diabetes, and intervention by lifestyle modification may be beneficial. HgbA1c greater or equal to 6.5% is considered diagnostic of diabetes. Performed By: #### 5 5454-3 ####[facility] LABIA [id number] [place] [address] [place] XR CHEST 2V FRONTAL/LATon XR CHEST 2V FRONTAL/LAT * * *Final Repor t* * * DATE OF EXAM: Jul 22 2024 9:48AM WOX [id number] - XR CHEST 2V FRONTAL/LAT / PROCEDURE REASON: Bronchitis * * * * Physician Interpretation * * * * EXAMINATION: CHEST RADIOGRAPH (2 VIEW FRONTAL and LATERAL) CLINICAL HISTORY: Bronchitis MQ: [id number]_6 EXAM DATE/TIME: 07/22/2024 9:48 AM COMPARISON: No relevant prior studies available. RESULT: Lines, tubes, and devices: None. Lungs and pleura: No consolidation. No lung mass. No pleural effusion. No pneumothorax. Cardiomediastinal silhouette: Normal cardiomediastinal silhouette. Bones and soft tissues: Unremarkable. IMPRESSION: No acute radiographic abnormality. Environmental Attorney: PSCB Transcribe Date/Time: Jul 23 2024 3:59P Dictated by : CAES HOWARD MD This examination was interpreted and the report reviewed and electronically signed by: CASE HOWARD MD on Jul 23 2024 4:05PM EST [id number] Normal [facility] VISUAL FIELD 24-2 OU (BOTH E YES)on 07-18-2024 [facility] Radiology Study observation (narrative) [facility] XR Chest PA and Lateralon IMPRESSION: No acute radiographic abnormality. Environmental Attorney: [employer] Transcribe Date/Time: Feb 06 2024 2:40P Dictated by : GEOFFREY CARROLL MD This examination was interpreted and the report reviewed and electronically signed by: GEOFFREY CARROLL MD on Feb 06 2024 2:40PM EST DIVISION OF RADIOLOGY * * *Final Report* [...] soft tissues: Unremarkable. DIVISION OF RADIOLOGY Provider, Cc Gerald velazco [place] - 02/06/2024 * * *Final Report* * [...] Unremarkable. IMPRESSION IMPRESSION: No acute radiographic abnormality. Environmental Attorney: PSCErica Transcribe Date/Time: Feb 06 2024 2:40P Dictated by : GEOFFREY CARROLL MD This examination was interpreted and the report reviewed and electronically signed by: GEOFFREY CARROLL MD on Feb 06 2024 2:40PM EST [facility] XR Chest PA and LateralOrder ed By: [facility] Provider on 02-06-2024 [facility] CBC W Auto Differential pane l (Bld)on 02-05-2024 Basophils (Bld) [#/Vol] 0.05 10*3/uL [facility] Basophils/100 WBC (Bld) 0.4 % C [facility] Differential cell count method Nom (Bld) Auto [facility] Eosinophils (Bld) [#/Vol] 0.06 10*3/uL [facility] Eosinophils/100 WBC (Bld) 0.5 % [facility] Erythrocyte distribution width (RBC) [Ratio] 12.2 % 11.5 - 15.0 % [facility] Hematocrit (Bld) [Volume fraction] 42.3 % 39.0 - 51.0 % [facility] Hemoglobin (Bld) [Mass/Vol] 14.2 g/dL 13.0 - 17.0 g/dL [facility] Immature granulocytes (Bld) [#/Vol] 0.06 10*3/uL [facility] Immature granulocytes/100 WBC (Bld) 0.5 % [facility] Interpretation and review of laboratory results Abnormal [facility] Lymphocytes (Bld) [#/Vol] 2.49 10*3/uL [facility] Lymphocytes/100 WBC (Bld) 20.4 % [facility] MCH (RBC) [Entitic mass] 31.4 pg 26. 0 - 34.0 pg [facility] MCHC (RBC) [Mass/Vol] 33.6 g/dL 30.5 - 36.0 g/dL [facility] MCV (RBC) [Entitic vol] 93.6 fL 80.0 - 100.0 fL [facility] Monocytes (Bld) [#/Vol] 1.07 10*3/uL High [facility] Monocytes/100 WBC (Bld) 8.7 % [facility] Neutrophils (Bld) [#/Vol] 8.50 10*3/uL High [facility] Neutrophils/100 WBC (Bld) 69.5 % [facility] Nucleated RBC (Bld) [#/Vol] NINF [facility] Nucleated RBC/100 WBC (Bld) [Ratio] 0.0 % /100 WBC [facility] Platelet mean volume (Bld) [Entitic vol] 10.3 fL 9.0 - 12.7 fL [facility] Platelets (Bld) [#/Vol] 210 10*3/uL [facility] RBC (Bld) [#/Vol] 4.52 10*6/uL 4.20 - 6.00 m/uL [facility] WBC (Bld) [#/Vol] 12.23 10*3/uL High [facility] XR Chest PA and Lateralon Radiology Study observation (narrative) [facility] OCT OPTIC NERVE CIRRUS OU (B OTH EYES)on 01-16-2024 [facility] Radiology Study observation (narrative) [facility] VISUAL FIELD 24-2 OU (BOTH E YES)on 01-16-2024 [facility] Radiology Study observation (narrative) [facility] Absolute lymphocyte countOrd ered By: Daiana Banda on 01-08-2024 Lymphocytes Auto (Unsp spec) [#/Vol] 1.77 10*3/uL 0.83-4.51 [facility] Automated lymphocyte count a s percentage of total leukocytesOrdered By: Daiana Banda on 01-08-2024 Lymphocytes/100 WBC Auto (Unsp spec) 14.6 % 19-41 [facility] Basophil percentageOrdered B y: Daiana Banda on 01-08-2024 Basophils/100 WBC (Bld) 0.1 % 0-1 [facility] Bilirubin [Mass/Vol] 0.90 mg/dL 0.20-1.00 [facility] Comment on above: For patients on eltr ombopag therapy, use of Dimension [place] TBIL is not recommended. Chloride [Moles/Vol] 105 mmol/L 98-107 [facility] Eosinophils/100 WBC (Bld) 0.0 % 0-5 [facility] Glucose [Mass/Vol] 183 mg/dL 74-106 [facility] Comment on above: Fasting Glucose resu lt greater than or equal to 126 mg/dL suggests DIABETES MELLITUS per A.D.A. criteria. Hemoglobin (Bld) [Mass/Vol] 12.4 g/dL 13.0-16.5 [facility] Monocytes/100 WBC (Bld) 8.0 % 0-10 [facility] Neutrophils (Bld) [#/Vol] 9.3 10*3/uL 2.0-7.7 [facility] Neutrophils/100 WBC (Bld) 76.7 % 47-70 [facility] Potassium [Moles/Vol] 4.2 mmol/L 3.5-5.1 [facility] Protein [Mass/Vol] 7.3 g/dL 6.4-8.2 [facility] Sodium [Moles/Vol] 136 mmol/L 136-145 [facility] WBC (Bld) [#/Vol] 12.1 10*3/uL 4.4-11.0 [facility] Determination of erythrocyte mean corpuscular volume (MCV)Ordered By: Daiana Banda on 01-08-2024 MCV (RBC) [Entitic vol] 91.9 fL 80-94 [facility] Erythrocyte distribution wid th ratioOrdered By: Daiana Banda on 01-08-2024 Erythrocyte distribution width (RBC) [Ratio] 12.0 % 11.6-14.6 [facility] Erythrocyte distribution wid th standard deviationOrdered By: Daiana Banda on 01-08-2024 Erythrocyte distribution width (RBC) [Entitic vol] 40.5 fL 35.1-43.9 [facility] Hematocrit Auto (Bld) [Volum e fraction]Ordered By: Daiana Banda on 01-08-2024 Hematocrit (Bld) [Volume fraction] 36.2 % 40-54 [facility] Immature granulocytes/100 WB C Auto (Bld)Ordered By: Daiana Banda on 01-08-2024 Immature granulocytes/100 WBC (Bld) 0.600 % 0.0-0.9 [facility] Comment on above: IG% - Immature Granu locytes (promyelocytes, myelocytes and metamyelocytes) > 1% indicates that a LEFT SHIFT is Present. LABORATORYOrdered By: SYSTEM SYSTEM on 01-08-2024 Lipase [Catalytic activity/Vol] U/L 1 High 16 - 77 U/L AO ADM SS LIPon 01-08-2024 Lipase Level >375 High 16-77 [facility] [place] Comment on above: Performed By: #### L IP #### [address] [address] Laboratory - Chemistry and C hemistry - challengeOrdered By: Daiana Banda on 01-08-2024 Albumin/Globulin [Mass ratio] 1.3 {ratio} 0.9-2.4 [facility] ALP [Catalytic activity/Vol] 61 U/L 45-117 [facility] ALT [Catalytic activity/Vol] 18 U/L 16-61 [facility] CO2 [Moles/Vol] 24.0 mmol/L 21.0-32.0 [facility] Globulin (S) [Mass/Vol] 3.2 g/dL 2.2-4.2 [facility] Urea nitrogen/Creatinine [Mass ratio] 12.4 mg/mg 10-20 [facility] Laboratory - Hematology and Cell countsOrdered By: Daiana Banda on 01-08-2024 MCH (RBC) [Entitic mass] 31.5 pg 27.0-32.0 [facility] MCHC (RBC) [Mass/Vol] 34.3 g/dL 32-36 [facility] Nucle[facility] RBC/100 WBC (Bld) [Ratio] 0 % 0-5 [facility] Platelet mean volume (Bld) [Entitic vol] 9.9 fL 6.2-12.0 [facility] Platelets (Bld) [#/Vol] 161 10*3/uL 150-450 [facility] No Panel InformationOrdered By: Daiana Banda on 01-08-2024 Estimated Creatinine Clearance Calc 103.92 ml/min [facility] Estimated GFR (MDRD) Amer 126 mL/min >60 [facility] Comment on above: GFR Calc Estimated GFR (MDRD) Non-Af Amer 105 mL/min >60 [facility] Comment on above: Non- GFR Calc RBC Auto (Bld) [#/Vol]Ordere d By: Daiana Banda on 01-08-2024 RBC (Bld) [#/Vol] 3.94 10*6/uL 4.6-6.2 [facility] Serum or plasma calcium mc urement (mass/volume)Ordered By: Daiana Banda on 01-08-2024 Calcium [Mass/Vol] 8.7 mg/dL 8.5-10.1 [facility] Serum or plasma creatinine m easurement (mass/volume)Ordered By: Daiana Banda on 01-08-2024 Creatinine [Mass/Vol] 0.80 mg/dL 0.70-1.30 [facility] Comment on above: The validity of the calculated GFR & GFRAA in patients over 70 years has not been determined. Clinical correlation is essential. Serum or plasma urea nitroge n measurement (mass/volume)Ordered By: Daiana Banda on 01-08-2024 Urea nitrogen [Mass/Vol] 10 mg/dL 7-18 [facility] Thin prep Papanicolaou smear with manual screeningOrdered By: Mg Patel on 01-08-2024 Thin prep Papanicolaou smear with manual screening 207 mg/dL 74-106 [facility] Comment on above: MANAGEMENT OF PATIEN T CARE PER NURSING PROTOCOL Thin prep Papanicolaou smear with manual screeningOrdered By: Daiana Banda on 01-08-2024 Thin prep Papanicolaou smear with manual screening 4.1 g/dL 3.2-5.0 [facility] Thin prep Papanicolaou smear with manual screening 22 U/L 15-37 [facility] Thin prep Papanicolaou smear with manual screening 7 5-15 [facility] Absolute lymphocyte countOrd ered By: Phillip Aguiar on 01-07-2024 Lymphocytes Auto (Unsp spec) [#/Vol] 3.77 10*3/uL 0.83-4.51 [facility] Automated lymphocyte count a s percentage of total leukocytesOrdered By: Phillip Aguiar on 01-07-2024 Lymphocytes/100 WBC Auto (Unsp spec) 24.4 % 19-41 [facility] Basophil percentageOrdered B y: Phillip Aguiar on 01-07-2024 Basophils/100 WBC (Bld) 0.3 % 0-1 [facility] Bilirubin [Mass/Vol] 0.50 mg/dL 0.20-1.00 [facility] Comment on above: For patients on eltr ombopag therapy, use of Dimension [place] TBIL is not recommended. Chloride [Moles/Vol] 93 mmol/L 98-107 [facility] Eosinophils/100 WBC (Bld) 1.4 % 0-5 [facility] Glucose [Mass/Vol] 262 mg/dL 74-106 [facility] Comment on above: Glucose result great er than or equal to 200 mg/dLsuggests DIABETES MELLITUS per A.D.A. criteria. Hemoglobin (Bld) [Mass/Vol] 13.5 g/dL 13.0-16.5 [facility] Monocytes/100 WBC (Bld) 5.2 % 0-10 [facility] Neutrophils (Bld) [#/Vol] 10.6 10*3/uL 2.0-7.7 [facility] Neutrophils/100 WBC (Bld) 68.3 % 47-70 [facility] Potassium [Moles/Vol] 3.2 mmol/L 3.5-5.1 [facility] Protein [Mass/Vol] 7.5 g/dL 6.4-8.2 [facility] Sodium [Moles/Vol] 127 mmol/L 136-145 [facility] WBC (Bld) [#/Vol] 15.5 10*3/uL 4.4-11.0 [facility] Determination of erythrocyte mean corpuscular volume (MCV)Ordered By: Phillip Aguiar on 01-07-2024 MCV (RBC) [Entitic vol] 91.0 fL 80-94 [facility] Direct bilirubinOrdered By: Phillip Aguiar on 01-07-2024 Bilirubin.direct [Mass/Vol] 0.15 mg/dL 0.00-0.30 [facility] Erythrocyte distribution wid th ratioOrdered By: Phillip Aguiar on 01-07-2024 Erythrocyte distribution width (RBC) [Ratio] 11.9 % 11.6-14.6 [facility] Erythrocyte distribution wid th standard deviationOrdered By: Phillip Aguiar on 01-07-2024 Erythrocyte distribution width (RBC) [Entitic vol] 39.8 fL 35.1-43.9 [facility] Hematocrit Auto (Bld) [Volum e fraction]Ordered By: Phillip Aguiar on 01-07-2024 Hematocrit (Bld) [Volume fraction] 38.6 % 40-54 [facility] Immature granulocytes/100 WB C Auto (Bld)Ordered By: Phillip Aguiar on 01-07-2024 Immature granulocytes/100 WBC (Bld) 0.400 % 0.0-0.9 [facility] Comment on above: IG% - Immature Granu locytes (promyelocytes, myelocytes and metamyelocytes) > 1% indicates that a LEFT SHIFT is Present. Laboratory - Chemistry and C hemistry - challengeOrdered By: Phillip Aguiar on 01-07-2024 ALP [Catalytic activity/Vol] 63 U/L 45-117 [facility] ALT [Catalytic activity/Vol] 19 U/L 16-61 [facility] CO2 [Moles/Vol] 19.0 mmol/L 21.0-32.0 [facility] Globulin (S) [Mass/Vol] 3.5 g/dL 2.2-4.2 [facility] Urea nitrogen/Creatinine [Mass ratio] 11.0 mg/mg 10-20 [facility] Laboratory - Hematology and Cell countsOrdered By: Phillip Aguiar on 01-07-2024 MCH (RBC) [Entitic mass] 31.8 pg 27.0-32.0 [facility] MCHC (RBC) [Mass/Vol] 35.0 g/dL 32-36 [facility] Nucleated RBC/100 WBC (Bld) [Ratio] 0 % 0-5 [facility] Platelet mean volume (Bld) [Entitic vol] 9.3 fL 6.2-12.0 [facility] Platelets (Bld) [#/Vol] 191 10*3/uL 150-450 [facility] No Panel InformationOrdered By: Phillip Aguiar on 01-07-2024 Estimated Creatinine Clearance Calc 74.18 ml/min [facility] Estimated GFR (MDRD) Amer 81 mL/min >60 [facility] Comment on above: GFR Calc Estimated GFR (MDRD) Non-Af Amer 67 mL/min >60 [facility] Comment on above: Non- GFR Calc Ethyl Alcohol Level 240.0 mg/dL [facility] Comment on above: The serum:whole bloo d ethanol ratio is approximately 1.14and varies slightly with hematocrit. Medical Alcohol reference interval and critical value innon-tolerant individuals; 50 - 100 Impairment 100 Intoxication 100 - 250 Severe Poisoning 250 - 400 Deep/possible fatal coma Lipase See comment 13-75 [facility] Comment on above: SAID SHE WOULD CONSU [...] Range: 13 - 75 U/L Lipase TNP [facility] Comment on above: Test not performedSA ID SHE WOULD CONSULT WITH DOCTORSpecimen [facility] to [facility].Previous reported result: TNP U/LEdited by: EVIE on [...] 01-07-2024 RBC (Bld) [#/Vol] 4.24 10*6/uL 4.6-6.2 [facility] Serum or plasma calcium mc urement (mass/volume)Ordered By: Phillip Aguiar on 01-07-2024 Calcium [Mass/Vol] 8.9 mg/dL 8.5-10.1 [facility] Serum or plasma creatinine m easurement (mass/volume)Ordered By: Phillip Aguiar on 01-07-2024 Creatinine [Mass/Vol] 1.18 mg/dL 0.70-1.30 [facility] Comment on above: The validity of the calculated GFR & GFRAA in patients over 70 years has not been determined. Clinical correlation is essential. Serum or plasma urea nitroge n measurement (mass/volume)Ordered By: Phillip Aguiar on 01-07-2024 Urea nitrogen [Mass/Vol] 13 mg/dL 7-18 [facility] Thin prep Papanicolaou smear with manual screeningOrdered By: Phillip Aguiar on 01-07-2024 Thin prep Papanicolaou smear with manual screening 4.0 g/dL 3.2-5.0 [facility] Thin prep Papanicolaou smear with manual screening 18 U/L 15-37 [facility] Thin prep Papanicolaou smear with manual screening 15 5-15 [facility] Basophil percentageOrdered B y: Antony Burnett on 12-22-2023 Ammonia (P) [Moles/Vol] 30.0 umol/L 11-32 [facility] No Panel InformationOrdered By: Antony Burnett on 12-22-2023 Levetiracetam (Keppra) Level 24.1 ug/mL 10.0-40.0 [facility] Comment on above: Performed at: [address] [id number] Director: Fam Talbert MD, Phone: [phone] Absolute lymphocyte countOrd ered By: Noelle Lynne on 11-20-2023 Lymphocytes Auto (Unsp spec) [#/Vol] 2.05 10*3/uL 0.83-4.51 [facility] Automated lymphocyte count a s percentage of total leukocytesOrdered By: Noelle Lynne on 11-20-2023 Lymphocytes/100 WBC Auto (Unsp spec) 21.0 % 19-41 [facility] Basophil percentageOrdered B y: Noelle Lynne on 11-20-2023 Basophil percentage 0-5 SEEN /hpf 0-5 [facility] Basophils/100 WBC (Bld) 0.5 % 0-1 [facility] Bilirubin [Mass/Vol] 1.20 mg/dL 0.20-1.00 [facility] Comment on above: For patients on eltr ombopag therapy, use of Dimension [place] TBIL is not recommended. Chloride [Moles/Vol] 101 mmol/L 98-107 [facility] Eosinophils/100 WBC (Bld) 0.5 % 0-5 [facility] Glucose [Mass/Vol] 275 mg/dL 74-106 [facility] Comment on above: Glucose result great er than or equal to 200 mg/dLsuggests DIABETES MELLITUS per A.D.A. criteria. Hemoglobin (Bld) [Mass/Vol] 14.2 g/dL 13.0-16.5 [facility] Monocytes/100 WBC (Bld) 6.3 % 0-10 [facility] Neutrophils (Bld) [#/Vol] 6.9 10*3/uL 2.0-7.7 [facility] Neutrophils/100 WBC (Bld) 71.2 % 47-70 [facility] Potassium [Moles/Vol] 3.9 mmol/L 3.5-5.1 [facility] Protein [Mass/Vol] 8.0 g/dL 6.4-8.2 [facility] Sodium [Moles/Vol] 134 mmol/L 136-145 [facility] WBC (Bld) [#/Vol] 9.8 10*3/uL 4.4-11.0 [facility] Bilirubin Test strip Ql (U)O rdered By: Noelle Lynne on 11-20-2023 Bilirubin Ql (U) Negative Negative [facility] Determination of erythrocyte mean corpuscular volume (MCV)Ordered By: Noelle Lynne on 11-20-2023 MCV (RBC) [Entitic vol] 91.1 fL 80-94 [facility] Erythrocyte distribution wid th ratioOrdered By: Noelle Lynne on 11-20-2023 Erythrocyte distribution width (RBC) [Ratio] 12.5 % 11.6-14.6 [facility] Erythrocyte distribution wid th standard deviationOrdered By: Noelle Lynne on 11-20-2023 Erythrocyte distribution width (RBC) [Entitic vol] 41.2 fL 35.1-43.9 [facility] Hematocrit Auto (Bld) [Volum e fraction]Ordered By: Noelle Lynne on 11-20-2023 Hematocrit (Bld) [Volume fraction] 41.9 % 40-54 [facility] Immature granulocytes/100 WB C Auto (Bld)Ordered By: Noelle Lynne on 11-20-2023 Immature granulocytes/100 WBC (Bld) 0.500 % 0.0-0.9 [facility] Comment on above: IG% - Immature Granu locytes (promyelocytes, myelocytes and metamyelocytes) > 1% indicates that a LEFT SHIFT is Present. Ketones Test strip Ql (U)Ord ered By: Noelle Lynne on 11-20-2023 Ketones Ql (U) 5 mg/dl Negative [facility] Laboratory - Chemistry and C hemistry - challengeOrdered By: Noelle Lynne on 11-20-2023 Albumin/Globulin [Mass ratio] 1.2 {ratio} 0.9-2.4 [facility] ALP [Catalytic activity/Vol] 73 U/L 45-117 [facility] ALT [Catalytic activity/Vol] 17 U/L 16-61 [facility] CO2 [Moles/Vol] 26.0 mmol/L 21.0-32.0 [facility] Globulin (S) [Mass/Vol] 3.7 g/dL 2.2-4.2 [facility] Lipase [Catalytic activity/Vol] 117 U/L 13-75 [facility] Comment on above: Please note:LIPASE r evised reference range effective 23. New Lipase methodology. Expected to produce lower values than the previous assay method. NEW Reference Range: 13 - 75 U/L Urea nitrogen/Creatinine [Mass ratio] 13.9 mg/mg 10-20 [facility] Laboratory - Hematology and Cell countsOrdered By: Noelle Lynne on 11-20-2023 MCH (RBC) [Entitic mass] 30.9 pg 27.0-32.0 [facility] MCHC (RBC) [Mass/Vol] 33.9 g/dL 32-36 [facility] Nucleated RBC/100 WBC (Bld) [Ratio] 0 % 0-5 [facility] Platelet mean volume (Bld) [Entitic vol] 9.4 fL 6.2-12.0 [facility] Platelets (Bld) [#/Vol] 201 10*3/uL 150-450 [facility] Mucus LM Ql (Urine sed)Order ed By: Noelle Lynne on 11-20-2023 Mucus Ql (Urine sed) 0 SEEN /hpf [facility] Nitrite Test strip Ql (U)Ord ered By: Noelle Lynne on 11-20-2023 Nitrite Ql (U) Negative Negative [facility] No Panel InformationOrdered By: Noelle Lynne on 11-20-2023 Urine RBC 0-5 SEEN /hpf 0-5 [facility] Estimated Creatinine Clearance Calc 60.69 ml/min [facility] Estimated GFR (MDRD) Amer 69 mL/min >60 [facility] Comment on above: GFR Calc Estimated GFR (MDRD) Non-Af Amer 57 mL/min >60 [facility] Comment on above: Non- GFR Calc Protein Test strip Ql (U)Ord ered By: Noelle Lynne on 11-20-2023 Protein Ql (U) 30 mg/dl Negative [facility] RBC Auto (Bld) [#/Vol]Ordere d By: Noelle Lynne on 11-20-2023 RBC (Bld) [#/Vol] 4.60 10*6/uL 4.6-6.2 [facility] Serum or plasma calcium mc urement (mass/volume)Ordered By: Noelle Lynne on 11-20-2023 Calcium [Mass/Vol] 9.5 mg/dL 8.5-10.1 [facility] Serum or plasma creatinine m easurement (mass/volume)Ordered By: Noelle Lynne on 11-20-2023 Creatinine [Mass/Vol] 1.37 mg/dL 0.70-1.30 [facility] Comment on above: The validity of the calculated GFR & GFRAA in patients over 70 years has not been determined. Clinical correlation is essential. Serum or plasma urea nitroge n measurement (mass/volume)Ordered By: Noelle Lnyne on 11-20-2023 Urea nitrogen [Mass/Vol] 19 mg/dL 7-18 [facility] Squamous epithelial cells de tection in urine sediment by light microscopyOrdered By: Noelle Lynne on 11-20-2023 Epithelial cells.squamous LM Ql (Urine sed) 0-5 SEEN /hpf 0-5 [facility] Thin prep Papanicolaou smear with manual screeningOrdered By: Noelle Lynne on 11-20-2023 Thin prep Papanicolaou smear with manual screening 4.3 g/dL 3.2-5.0 [facility] Thin prep Papanicolaou smear with manual screening 14 U/L 15-37 [facility] Thin prep Papanicolaou smear with manual screening 7 5-15 [facility] Urine blood detectionOrdered By: Noelle Lynne on 11-20-2023 RBC Ql (U) 10 /ul Negative [facility] Urine clarityOrdered By: Maryann Lynne on 11-20-2023 Clarity (U) Clear Clear [facility] Urine color determinationOrd ered By: Noelle Lynne on 11-20-2023 Color (U) Yellow Yellow [facility] Urine glucose detectionOrder ed By: Noelle Lynne on 11-20-2023 Glucose Ql (U) 1000 mg/dl Normal [facility] Urine leukocyte esterase det ection by dipstickOrdered By: Noelle Lynne on 11-20-2023 Leukocyte esterase Test strip Ql (U) 25 /ul Negative [facility] Urine pHOrdered By: Noelle ramirez on 11-20-2023 pH (U) 6.0 [pH] 5.0 - 8.0 [facility] Urine sediment bacteria coun t by microscopy (number/high power field)Ordered By: Noelle Lynne on 11-20-2023 Bacteria LM.HPF (Urine sed) [#/Area] 0 /[HPF] None Seen [facility] Urine specific gravity measu rementOrdered By: Noellemachelle Lynne on 11-20-2023 Specific gravity (U) [Rel density] 1.015 1.002-1.03 0 [facility] Urine urobilinogen measureme ntOrdered By: Noelle Lynne on 11-20-2023 Urobilinogen Ql (U) 1 mg/dl Normal [facility] Absolute lymphocyte countOrd ered By: Rajendra Rios on 11-07-2023 Lymphocytes Auto (Unsp spec) [#/Vol] 1.93 10*3/uL 0.83-4.51 [facility] Automated lymphocyte count a s percentage of total leukocytesOrdered By: Rajendra Rios on 11-07-2023 Lymphocytes/100 WBC Auto (Unsp spec) 20.1 % 19-41 [facility] Basophil percentageOrdered B y: Rajendra Rios on 11-07-2023 Basophils/100 WBC (Bld) 0.5 % 0-1 [facility] Bilirubin [Mass/Vol] 0.80 mg/dL 0.20-1.00 [facility] Comment on above: For patients on eltr ombopag therapy, use of Dimension [place] TBIL is not recommended. Chloride [Moles/Vol] 101 mmol/L 98-107 [facility] Eosinophils/100 WBC (Bld) 1.0 % 0-5 [facility] Glucose [Mass/Vol] 352 mg/dL 74-106 [facility] Comment on above: Glucose result great er than or equal to 200 mg/dLsuggests DIABETES MELLITUS per A.D.A. criteria. Hemoglobin (Bld) [Mass/Vol] 13.9 g/dL 13.0-16.5 [facility] Monocytes/100 WBC (Bld) 6.5 % 0-10 [facility] Neutrophils (Bld) [#/Vol] 6.9 10*3/uL 2.0-7.7 [facility] Neutrophils/100 WBC (Bld) 71.6 % 47-70 [facility] Potassium [Moles/Vol] 4.1 mmol/L 3.5-5.1 [facility] Protein [Mass/Vol] 7.8 g/dL 6.4-8.2 [facility] Sodium [Moles/Vol] 135 mmol/L 136-145 [facility] WBC (Bld) [#/Vol] 9.6 10*3/uL 4.4-11.0 [facility] Determination of erythrocyte mean corpuscular volume (MCV)Ordered By: Rajendra Rios on 11-07-2023 MCV (RBC) [Entitic vol] 90.8 fL 80-94 [facility] Erythrocyte distribution wid th ratioOrdered By: Rajendra Rios on 11-07-2023 Erythrocyte distribution width (RBC) [Ratio] 12.1 % 11.6-14.6 [facility] Erythrocyte distribution wid th standard deviationOrdered By: aRjendra Rios on 11-07-2023 Erythrocyte distribution width (RBC) [Entitic vol] 40.6 fL 35.1-43.9 [facility] Hematocrit Auto (Bld) [Volum e fraction]Ordered By: Rajendra Rios on 11-07-2023 Hematocrit (Bld) [Volume fraction] 40.3 % 40-54 [facility] Immature granulocytes/100 WB C Auto (Bld)Ordered By: Rajendra Rios on 11-07-2023 Immature granulocytes/100 WBC (Bld) 0.300 % 0.0-0.9 [facility] Comment on above: IG% - Immature Granu locytes (promyelocytes, myelocytes and metamyelocytes) > 1% indicates that a LEFT SHIFT is Present. Laboratory - Chemistry and C hemistry - challengeOrdered By: Rajendra Rios on 11-07-2023 Albumin/Globulin [Mass ratio] 1.1 {ratio} 0.9-2.4 [facility] ALP [Catalytic activity/Vol] 75 U/L 45-117 [facility] ALT [Catalytic activity/Vol] 13 U/L 16-61 [facility] CO2 [Moles/Vol] 24.0 mmol/L 21.0-32.0 [facility] Globulin (S) [Mass/Vol] 3.7 g/dL 2.2-4.2 [facility] Lipase [Catalytic activity/Vol] 167 U/L 13-75 [facility] Comment on above: Please note:LIPASE r evised reference range effective 23. New Lipase methodology. Expected to produce lower values than the previous assay method. NEW Reference Range: 13 - 75 U/L Urea nitrogen/Creatinine [Mass ratio] 15.2 mg/mg 10-20 [facility] Laboratory - Hematology and Cell countsOrdered By: Rajendra Rios on 11-07-2023 MCH (RBC) [Entitic mass] 31.3 pg 27.0-32.0 [facility] MCHC (RBC) [Mass/Vol] 34.5 g/dL 32-36 [facility] Nucleated RBC/100 WBC (Bld) [Ratio] 0 % 0-5 [facility] Platelet mean volume (Bld) [Entitic vol] 9.6 fL 6.2-12.0 [facility] Platelets (Bld) [#/Vol] 173 10*3/uL 150-450 [facility] No Panel InformationOrdered By: Rajendra Rios on 11-07-2023 Estimated Creatinine Clearance Calc 62.98 ml/min [facility] Estimated GFR (MDRD) Amer 72 mL/min >60 [facility] Comment on above: GFR Calc Estimated GFR (MDRD) Non-Af Amer 59 mL/min >60 [facility] Comment on above: Non- GFR Calc RBC Auto (Bld) [#/Vol]Ordere d By: Rajendra Rios on 11-07-2023 RBC (Bld) [#/Vol] 4.44 10*6/uL 4.6-6.2 [facility] Serum or plasma calcium mc urement (mass/volume)Ordered By: Rajendra Rios on 11-07-2023 Calcium [Mass/Vol] 9.5 mg/dL 8.5-10.1 [facility] Serum or plasma creatinine m easurement (mass/volume)Ordered By: Rajendra Rios on 11-07-2023 Creatinine [Mass/Vol] 1.32 mg/dL 0.70-1.30 [facility] Comment on above: The validity of the calculated GFR & GFRAA in patients over 70 years has not been determined. Clinical correlation is essential. Serum or plasma urea nitroge n measurement (mass/volume)Ordered By: Rajendra Rios on 11-07-2023 Urea nitrogen [Mass/Vol] 20 mg/dL 7-18 [facility] Thin prep Papanicolaou smear with manual screeningOrdered By: Rajendra Rios on 11-07-2023 Thin prep Papanicolaou smear with manual screening 4.1 g/dL 3.2-5.0 [facility] Thin prep Papanicolaou smear with manual screening 9 U/L 15-37 [facility] Thin prep Papanicolaou smear with manual screening 10 5-15 [facility] Absolute lymphocyte countOrd ered By: Phillip Aguiar on 10-10-2023 Lymphocytes Auto (Unsp spec) [#/Vol] 3.30 10*3/uL 0.83-4.51 [facility] Basophil percentageOrdered B y: Phillip Agiuar on 10-10-2023 Basophils/100 WBC (Bld) 0.3 % 0-1 [facility] Bilirubin [Mass/Vol] 0.60 mg/dL 0.20-1.00 [facility] Comment on above: For patients on eltr ombopag therapy, use of Dimension [place] TBIL is not recommended. Chloride [Moles/Vol] 104 mmol/L 98-107 [facility] Eosinophils/100 WBC (Bld) 1.9 % 0-5 [facility] Glucose [Mass/Vol] 232 mg/dL 74-106 [facility] Comment on above: Glucose result great er than or equal to 200 mg/dLsuggests DIABETES MELLITUS per A.D.A. criteria. Neutrophils (Bld) [#/Vol] 7.9 10*3/uL 2.0-7.7 [facility] Neutrophils/100 WBC (Bld) 63.9 % 47-70 [facility] Potassium [Moles/Vol] 3.7 mmol/L 3.5-5.1 [facility] Protein [Mass/Vol] 8.2 g/dL 6.4-8.2 [facility] Sodium [Moles/Vol] 139 mmol/L 136-145 [facility] WBC (Bld) [#/Vol] 12.4 10*3/uL 4.4-11.0 [facility] Blood erythrocytes count (nu mber/volume)Ordered By: Phillip Aguiar on 10-10-2023 RBC (Bld) [#/Vol] 4.38 10*6/uL 4.6-6.2 [facility] Blood hemoglobin measurement (mass/volume)Ordered By: Phillip Aguiar on 10-10-2023 Hemoglobin (Bld) [Mass/Vol] 13.5 g/dL 13.0-16.5 [facility] Blood lymphocytes/100 leukoc ytesOrdered By: Phillip Aguiar on 10-10-2023 Lymphocytes/100 WBC (Bld) 26.7 % 19-41 [facility] Blood monocytes/100 leukocyt esOrdered By: Phillip Aguiar on 10-10-2023 Monocytes/100 WBC (Bld) 6.9 % 0-10 [facility] Blood platelet mean volumeOr dered By: Phillip Aguiar on 10-10-2023 Platelet mean volume (Bld) [Entitic vol] 10.1 fL 6.2-12.0 [facility] Determination of erythrocyte mean corpuscular volume (MCV)Ordered By: Phillip Aguiar on 10-10-2023 MCV (RBC) [Entitic vol] 92.2 fL 80-94 [facility] Direct bilirubinOrdered By: Phillip Aguiar on 10-10-2023 Bilirubin.direct [Mass/Vol] 0.18 mg/dL 0.00-0.30 [facility] Hematocrit Auto (Bld) [Volum e fraction]Ordered By: Phillip Aguiar on 10-10-2023 Hematocrit (Bld) [Volume fraction] 40.4 % 40-54 [facility] Laboratory - Chemistry and C hemistry - challengeOrdered By: Phillip Aguiar on 10-10-2023 ALP [Catalytic activity/Vol] 80 U/L 45-117 [facility] ALT [Catalytic activity/Vol] 19 U/L 16-61 [facility] CO2 [Moles/Vol] 26.0 mmol/L 21.0-32.0 [facility] Globulin (S) [Mass/Vol] 3.8 g/dL 2.2-4.2 [facility] Lipase [Catalytic activity/Vol] 71 U/L 13-75 [facility] Comment on above: Please note:LIPASE r evised reference range effective 23. New Lipase methodology. Expected to produce lower values than the previous assay method. NEW Reference Range: 13 - 75 U/L Urea nitrogen/Creatinine [Mass ratio] 17.1 mg/mg 10-20 [facility] Laboratory - Hematology and Cell countsOrdered By: Phillip Aguiar on 10-10-2023 Erythrocyte distribution width (RBC) [Entitic vol] 42.4 fL 35.1-43.9 [facility] Erythrocyte distribution width (RBC) [Ratio] 12.4 % 11.6-14.6 [facility] Immature granulocytes/100 WBC (Bld) 0.300 % 0.0-0.9 [facility] Comment on above: IG% - Immature Granu locytes (promyelocytes, myelocytes and metamyelocytes) > 1% indicates that a LEFT SHIFT is Present. MCH (RBC) [Entitic mass] 30.8 pg 27.0-32.0 [facility] Nucleated RBC/100 WBC (Bld) [Ratio] 0 % 0-5 [facility] MCHC Auto (RBC) [Mass/Vol]Or dered By: Phillip Aguiar on 10-10-2023 MCHC (RBC) [Mass/Vol] 33.4 g/dL 32-36 [facility] No Panel InformationOrdered By: Phillip Aguiar on 10-10-2023 Estimated Creatinine Clearance Calc 60.11 ml/min [facility] Estimated GFR (MDRD) Amer 64 mL/min >60 [facility] Comment on above: GFR Calc Estimated GFR (MDRD) Non-Af Amer 53 mL/min >60 [facility] Comment on above: Non- GFR Calc Platelets bldOrdered By: James Aguiar on 10-10-2023 Platelets (Bld) [#/Vol] 173 10*3/uL 150-450 [facility] Serum or plasma albumin mc urement (mass/volume)Ordered By: Phillip Aguiar on 10-10-2023 Albumin [Mass/Vol] 4.4 g/dL 3.2-5.0 [facility] Serum or plasma calcium mc urement (mass/volume)Ordered By: Phillip Aguiar on 10-10-2023 Calcium [Mass/Vol] 9.4 mg/dL 8.5-10.1 [facility] Serum or plasma creatinine m easurement (mass/volume)Ordered By: Phillip Aguiar on 10-10-2023 Creatinine [Mass/Vol] 1.46 mg/dL 0.70-1.30 [facility] Comment on above: The validity of the calculated GFR & GFRAA in patients over 70 years has not been determined. Clinical correlation is essential. Serum or plasma urea nitroge n measurement (mass/volume)Ordered By: Phillip Aguiar on 10-10-2023 Urea nitrogen [Mass/Vol] 25 mg/dL 7-18 [facility] Thin prep Papanicolaou smear with manual screeningOrdered By: Phillip Aguiar on 10-10-2023 Thin prep Papanicolaou smear with manual screening 13 U/L 15- [facility] Thin prep Papanicolaou smear with manual screening 9 - [facility] Absolute lymphocyte countOrd ered By: Neftali Dickson on 08-09-2023 Lymphocytes Auto (Unsp spec) [#/Vol] 3.91 10*3/uL 0.83-4.51 [facility] Basophil percentageOrdered B y: Neftali Dickson on 08-09-2023 Basophils/100 WBC (Bld) 0.7 % 0-1 [facility] Bilirubin [Mass/Vol] 0.50 mg/dL 0.20-1.00 [facility] Comment on above: For patients on eltr ombopag therapy, use of Dimension [place] TBIL is not recommended. Chloride [Moles/Vol] 101 mmol/L 98-107 [facility] Eosinophils/100 WBC (Bld) 2.4 % 0-5 [facility] Glucose [Mass/Vol] 222 mg/dL 74-106 [facility] Comment on above: Glucose result great er than or equal to 200 mg/dLsuggests DIABETES MELLITUS per A.D.A. criteria. Neutrophils (Bld) [#/Vol] 4.9 10*3/uL 2.0-7.7 [facility] Neutrophils/100 WBC (Bld) 50.2 % 47-70 [facility] Potassium [Moles/Vol] 3.6 mmol/L 3.5-5.1 [facility] Protein [Mass/Vol] 7.4 g/dL 6.4-8.2 [facility] Sodium [Moles/Vol] 134 mmol/L 136-145 [facility] WBC (Bld) [#/Vol] 9.8 10*3/uL 4.4-11.0 [facility] Blood erythrocytes count (nu mber/volume)Ordered By: Neftali Dickson on 08-09-2023 RBC (Bld) [#/Vol] 4.26 10*6/uL 4.6-6.2 [facility] Blood hemoglobin measurement (mass/volume)Ordered By: Neftali Dickson on 08-09-2023 Hemoglobin (Bld) [Mass/Vol] 13.3 g/dL 13.0-16.5 [facility] Blood lymphocytes/100 leukoc ytesOrdered By: Neftali Dickson on 08-09-2023 Lymphocytes/100 WBC (Bld) 39.7 % 19-41 [facility] Blood monocytes/100 leukocyt esOrdered By: Neftali Dickson on 08-09-2023 Monocytes/100 WBC (Bld) 6.6 % 0-10 [facility] Blood platelet mean volumeOr dered By: Neftali Dickson on 08-09-2023 Platelet mean volume (Bld) [Entitic vol] 9.7 fL 6.2-12.0 [facility] Determination of erythrocyte mean corpuscular volume (MCV)Ordered By: Neftali Dickson on 08-09-2023 MCV (RBC) [Entitic vol] 91.5 fL 80-94 [facility] Direct bilirubinOrdered By: Neftali Dickson on 08-09-2023 Bilirubin.direct [Mass/Vol] 0.15 mg/dL 0.00-0.30 [facility] Hematocrit Auto (Bld) [Volum e fraction]Ordered By: Neftali Dickson on 08-09-2023 Hematocrit (Bld) [Volume fraction] 39.0 % 40-54 [facility] Laboratory - Chemistry and C hemistry - challengeOrdered By: Neftali Dickson on 08-09-2023 ALP [Catalytic activity/Vol] 69 U/L 45-117 [facility] ALT [Catalytic activity/Vol] 17 U/L 16-61 [facility] CO2 [Moles/Vol] 23.0 mmol/L 21.0-32.0 [facility] Globulin (S) [Mass/Vol] 3.6 g/dL 2.2-4.2 [facility] Lipase [Catalytic activity/Vol] 102 U/L 13-75 [facility] Comment on above: Please note:LIPASE r evised reference range effective 23. New Lipase methodology. Expected to produce lower values than the previous assay method. NEW Reference Range: 13 - 75 U/L Urea nitrogen/Creatinine [Mass ratio] 11.5 mg/mg 10-20 [facility] Laboratory - Hematology and Cell countsOrdered By: Neftali Dickson on 08-09-2023 Erythrocyte distribution width (RBC) [Entitic vol] 41.3 fL 35.1-43.9 [facility] Erythrocyte distribution width (RBC) [Ratio] 12.5 % 11.6-14.6 [facility] Immature granulocytes/100 WBC (Bld) 0.400 % 0.0-0.9 [facility] Comment on above: IG% - Immature Granu locytes (promyelocytes, myelocytes and metamyelocytes) > 1% indicates that a LEFT SHIFT is Present. MCH (RBC) [Entitic mass] 31.2 pg 27.0-32.0 [facility] Nucleated RBC/100 WBC (Bld) [Ratio] 0 % 0-5 [facility] MCHC Auto (RBC) [Mass/Vol]Or dered By: Neftali Dickson on 08-09-2023 MCHC (RBC) [Mass/Vol] 34.1 g/dL 32-36 [facility] No Panel InformationOrdered By: Neftali Dickson on 08-09-2023 Estimated Creatinine Clearance Calc 86.60 ml/min [facility] Estimated GFR (MDRD) Amer 104 mL/min >60 [facility] Comment on above: GFR Calc Estimated GFR (MDRD) Non-Af Amer 86 mL/min >60 [facility] Comment on above: Non- GFR Calc Troponin I High Sensitivity 13 pg/mL 3.0-78.0 [facility] Comment on above: Please Note: New Destinee t Units and Gender Specific Reference Ranges. For more information see Policy Stat Procedure [place] High Sensitivity Troponin (TNIH) and attachments. Platelets bldOrdered By: Ramo Dickson on 08-09-2023 Platelets (Bld) [#/Vol] 180 10*3/uL 150-450 [facility] Serum or plasma albumin mc urement (mass/volume)Ordered By: Neftali Dickson on 08-09-2023 Albumin [Mass/Vol] 3.8 g/dL 3.2-5.0 [facility] Serum or plasma calcium mc urement (mass/volume)Ordered By: Neftali Dickson on 08-09-2023 Calcium [Mass/Vol] 8.8 mg/dL 8.5-10.1 [facility] Serum or plasma creatinine m easurement (mass/volume)Ordered By: Neftali Dickson on 08-09-2023 Creatinine [Mass/Vol] 0.96 mg/dL 0.70-1.30 [facility] Comment on above: The validity of the calculated GFR & GFRAA in patients over 70 years has not been determined. Clinical correlation is essential. Serum or plasma urea nitroge n measurement (mass/volume)Ordered By: Neftali Dickson on 08-09-2023 Urea nitrogen [Mass/Vol] 11 mg/dL 7-18 [facility] Thin prep Papanicolaou smear with manual screeningOrdered By: Neftali Dickson on 08-09-2023 Thin prep Papanicolaou smear with manual screening 11 U/L 15-37 [facility] Thin prep Papanicolaou smear with manual screening 10 5-15 [facility] XR Chest PA and Lateralon IMPRESSION: No acute radiographic abnormality. Environmental Attorney: PSCErica Transcribe Date/Time: Jun 05 2023 1:02P Dictated by : GEOFFREY CARROLL MD This examination was interpreted and the report reviewed and electronically signed by: GEOFFREY CARROLL MD on Jun 05 2023 1:02PM [facility] DIVISION OF RADIOLOGY * * *Final Report* [...] soft tissues: Unremarkable. DIVISION OF RADIOLOGY Provider, [facility] - 06/05/2023 * * *Final Report* * [...] Unremarkable. IMPRESSION IMPRESSION: No acute radiographic abnormality. Environmental Attorney: JACQUE Transcribe Date/Time: Jun 05 2023 1:02P Dictated by : GEOFFREY CARROLL MD This examination was interpreted and the report reviewed and electronically signed by: GEOFFREY CARROLL MD on Jun 05 2023 1:02PM EST [facility] Radiology Study observation (narrative) Tucker chowdary [facility] XR Chest PA and LateralOrder ed By: [facility] Provider on 06-05-2023 [facility] Absolute lymphocyte countOrd ered By: ED PROVIDER on 05-03-2023 Lymphocytes Auto (Unsp spec) [#/Vol] 3.33 10*3/uL 0.83-4.51 [facility] Basophil percentageOrdered B y: ED PROVIDER on 05-03-2023 Basophil percentage 0 SEEN /hpf 0-5 [facility] Basophils/100 WBC (Bld) 0.3 % 0-1 [facility] Bilirubin [Mass/Vol] 0.40 mg/dL 0.20-1.00 [facility] Comment on above: For patients on eltr ombopag therapy, use of Dimension [place] TBIL is not recommended. Chloride [Moles/Vol] 99 mmol/L 98-107 [facility] Eosinophils/100 WBC (Bld) 1.9 % 0-5 [facility] Glucose [Mass/Vol] 242 mg/dL 74-106 [facility] Comment on above: Glucose result great er than or equal to 200 mg/dLsuggests DIABETES MELLITUS per A.D.A. criteria. Neutrophils (Bld) [#/Vol] 7.3 10*3/uL 2.0-7.7 [facility] Neutrophils/100 WBC (Bld) 63.8 % 47-70 [facility] Potassium [Moles/Vol] 4.0 mmol/L 3.5-5.1 [facility] Comment on above: Slight Hemolysis, Re sult may be falsely increased. Protein [Mass/Vol] 7.9 g/dL 6.4-8.2 [facility] Sodium [Moles/Vol] 136 mmol/L 136-145 [facility] WBC (Bld) [#/Vol] 11.5 10*3/uL 4.4-11.0 [facility] Bilirubin Test strip Ql (U)O rdered By: ED PROVIDER on 05-03-2023 Bilirubin Ql (U) Negative Negative [facility] Blood erythrocytes count (nu mber/volume)Ordered By: ED PROVIDER on 05-03-2023 RBC (Bld) [#/Vol] 4.21 10*6/uL 4.6-6.2 [facility] Blood hemoglobin measurement (mass/volume)Ordered By: ED PROVIDER on 05-03-2023 Hemoglobin (Bld) [Mass/Vol] 13.1 g/dL 13.0-16.5 [facility] Blood lymphocytes/100 leukoc ytesOrdered By: ED PROVIDER on 05-03-2023 Lymphocytes/100 WBC (Bld) 29.0 % 19-41 [facility] Blood monocytes/100 leukocyt esOrdered By: ED PROVIDER on 05-03-2023 Monocytes/100 WBC (Bld) 4.7 % 0-10 [facility] Blood platelet mean volumeOr dered By: ED PROVIDER on 05-03-2023 Platelet mean volume (Bld) [Entitic vol] 9.4 fL 6.2-12.0 [facility] Determination of erythrocyte mean corpuscular volume (MCV)Ordered By: ED PROVIDER on 05-03-2023 MCV (RBC) [Entitic vol] 93.1 fL 80-94 [facility] Hematocrit Auto (Bld) [Volum e fraction]Ordered By: ED PROVIDER on 05-03-2023 Hematocrit (Bld) [Volume fraction] 39.2 % 40-54 [facility] Ketones Test strip Ql (U)Ord ered By: ED PROVIDER on 05-03-2023 Ketones Ql (U) Negative Negative [facility] Laboratory - Chemistry and C hemistry - challengeOrdered By: ED PROVIDER on 05-03-2023 ALP [Catalytic activity/Vol] 72 U/L 45-117 [facility] ALT [Catalytic activity/Vol] 18 U/L 16-61 [facility] CO2 [Moles/Vol] 29.0 mmol/L 21.0-32.0 [facility] Globulin (S) [Mass/Vol] 3.9 g/dL 2.2-4.2 [facility] Urea nitrogen/Creatinine [Mass ratio] 9.5 mg/mg 10-20 [facility] Laboratory - Chemistry and C hemistry - challengeOrdered By: Lynnette Julian on 05-03-2023 Lipase [Catalytic activity/Vol] 60 U/L 13-75 [facility] Comment on above: Please note:LIPASE r evised reference range effective 23. New Lipase methodology. Expected to produce lower values than the previous assay method. NEW Reference Range: 13 - 75 U/L Laboratory - Hematology and Cell countsOrdered By: ED PROVIDER on 05-03-2023 Erythrocyte distribution width (RBC) [Entitic vol] 43.7 fL 35.1-43.9 [facility] Erythrocyte distribution width (RBC) [Ratio] 12.8 % 11.6-14.6 [facility] Immature granulocytes/100 WBC (Bld) 0.300 % 0.0-0.9 [facility] Comment on above: IG% - Immature Granu locytes (promyelocytes, myelocytes and metamyelocytes) > 1% indicates that a LEFT SHIFT is Present. MCH (RBC) [Entitic mass] 31.1 pg 27.0-32.0 [facility] Nucleated RBC/100 WBC (Bld) [Ratio] 0 % 0-5 [facility] MCHC Auto (RBC) [Mass/Vol]Or dered By: ED PROVIDER on 05-03-2023 MCHC (RBC) [Mass/Vol] 33.4 g/dL 32-36 [facility] Comment on above: Delta: 35.3 on 04/30 Mucus LM Ql (Urine sed)Order ed By: ED PROVIDER on 05-03-2023 Mucus Ql (Urine sed) 0 SEEN /hpf [facility] Nitrite Test strip Ql (U)Ord ered By: ED PROVIDER on 05-03-2023 Nitrite Ql (U) Negative Negative [facility] No Panel InformationOrdered By: ED PROVIDER on 05-03-2023 Estimated Creatinine Clearance Calc 60.69 ml/min [facility] Estimated GFR (MDRD) Amer 69 mL/min >60 [facility] Comment on above: GFR Calc Estimated GFR (MDRD) Non-Af Amer 57 mL/min >60 [facility] Comment on above: Non- GFR Calc Platelets bldOrdered By: ED PROVIDER on 05-03-2023 Platelets (Bld) [#/Vol] 214 10*3/uL 150-450 [facility] Protein Test strip Ql (U)Ord ered By: ED PROVIDER on 05-03-2023 Protein Ql (U) 30 mg/dl Negative [facility] Serum or plasma albumin mc urement (mass/volume)Ordered By: ED PROVIDER on 05-03-2023 Albumin [Mass/Vol] 4.0 g/dL 3.2-5.0 [facility] Serum or plasma albumin/glob ulin mass ratioOrdered By: ED PROVIDER on 05-03-2023 Albumin/Globulin [Mass ratio] 1.0 {ratio} 0.9-2.4 [facility] Serum or plasma calcium mc urement (mass/volume)Ordered By: ED PROVIDER on 05-03-2023 Calcium [Mass/Vol] 9.8 mg/dL 8.5-10.1 [facility] Serum or plasma creatinine m easurement (mass/volume)Ordered By: ED PROVIDER on 05-03-2023 Creatinine [Mass/Vol] 1.37 mg/dL 0.70-1.30 [facility] Comment on above: The validity of the calculated GFR & GFRAA in patients over 70 years has not been determined. Clinical correlation is essential. Serum or plasma urea nitroge n measurement (mass/volume)Ordered By: ED PROVIDER on 05-03-2023 Urea nitrogen [Mass/Vol] 13 mg/dL 7-18 [facility] Squamous epithelial cells de tection in urine sediment by light microscopyOrdered By: ED PROVIDER on 05-03-2023 Epithelial cells.squamous LM Ql (Urine sed) 0 SEEN /hpf 0-5 [facility] Thin prep Papanicolaou smear with manual screeningOrdered By: ED PROVIDER on 05-03-2023 Thin prep Papanicolaou smear with manual screening 14 U/L 15-37 [facility] Comment on above: Slight Hemolysis, Re sult may be falsely increased. Thin prep Papanicolaou smear with manual screening 8 5-15 [facility] Urine blood detectionOrdered By: ED PROVIDER on 05-03-2023 RBC Ql (U) Negative Negative [facility] RBC Ql (U) 0 SEEN /hpf 0-5 [facility] Urine clarityOrdered By: ED PROVIDER on 05-03-2023 Clarity (U) Clear Clear [facility] Urine color determinationOrd ered By: ED PROVIDER on 05-03-2023 Color (U) Yellow Yellow [facility] Urine glucose detectionOrder ed By: ED PROVIDER on 05-03-2023 Glucose Ql (U) 100 mg/dl Normal [facility] Urine leukocyte esterase det ection by dipstickOrdered By: ED PROVIDER on 05-03-2023 Leukocyte esterase Test strip Ql (U) Negative Negative [facility] Urine pHOrdered By: ED PROVI MARION on 05-03-2023 pH (U) 7.0 [pH] 5.0 - 8.0 [facility] Urine sediment bacteria coun t by microscopy (number/high power field)Ordered By: ED PROVIDER on 05-03-2023 Bacteria LM.HPF (Urine sed) [#/Area] 0 /[HPF] None Seen [facility] Urine specific gravity measu rementOrdered By: ED PROVIDER on 05-03-2023 Specific gravity (U) [Rel density] 1.005 1.002-1.03 0 [facility] Urobilinogen Auto test strip Ql (U)Ordered By: ED PROVIDER on 05-03-2023 Urobilinogen Ql (U) Normal mg/dl Normal [facility] Absolute lymphocyte countOrd ered By: Magno Mora on 04-30-2023 Lymphocytes Auto (Unsp spec) [#/Vol] 2.22 10*3/uL 0.83-4.51 [facility] Basophil percentageOrdered B y: Magno Mora on 04-30-2023 Basophils/100 WBC (Bld) 0.6 % 0-1 [facility] Bilirubin [Mass/Vol] 0.70 mg/dL 0.20-1.00 [facility] Comment on above: For patients on eltr ombopag therapy, use of Dimension [place] TBIL is not recommended. Chloride [Moles/Vol] 97 mmol/L 98-107 [facility] Eosinophils/100 WBC (Bld) 0.6 % 0-5 [facility] Glucose [Mass/Vol] 206 mg/dL 74-106 [facility] Comment on above: Glucose result great er than or equal to 200 mg/dLsuggests DIABETES MELLITUS per A.D.A. criteria. Neutrophils (Bld) [#/Vol] 9.3 10*3/uL 2.0-7.7 [facility] Neutrophils/100 WBC (Bld) 73.6 % 47-70 [facility] Potassium [Moles/Vol] 3.7 mmol/L 3.5-5.1 [facility] Protein [Mass/Vol] 8.3 g/dL 6.4-8.2 [facility] Sodium [Moles/Vol] 133 mmol/L 136-145 [facility] WBC (Bld) [#/Vol] 12.7 10*3/uL 4.4-11.0 [facility] Blood erythrocytes count (nu mber/volume)Ordered By: Magno Mora on 04-30-2023 RBC (Bld) [#/Vol] 4.58 10*6/uL 4.6-6.2 [facility] Blood hemoglobin measurement (mass/volume)Ordered By: Magno Mora on 04-30-2023 Hemoglobin (Bld) [Mass/Vol] 14.4 g/dL 13.0-16.5 [facility] Blood lymphocytes/100 leukoc ytesOrdered By: Magno Mora on 04-30-2023 Lymphocytes/100 WBC (Bld) 17.5 % 19-41 [facility] Blood monocytes/100 leukocyt esOrdered By: Magno Mora on 04-30-2023 Monocytes/100 WBC (Bld) 7.3 % 0-10 [facility] Blood platelet mean volumeOr dered By: Magno Mora on 04-30-2023 Platelet mean volume (Bld) [Entitic vol] 9.1 fL 6.2-12.0 [facility] Determination of erythrocyte mean corpuscular volume (MCV)Ordered By: Magno Mora on 04-30-2023 MCV (RBC) [Entitic vol] 89.1 fL 80-94 [facility] Hematocrit Auto (Bld) [Volum e fraction]Ordered By: Magno Mora on 04-30-2023 Hematocrit (Bld) [Volume fraction] 40.8 % 40-54 [facility] Laboratory - Chemistry and C hemistry - challengeOrdered By: Magno Mora on 04-30-2023 ALP [Catalytic activity/Vol] 72 U/L 45-117 [facility] ALT [Catalytic activity/Vol] 29 U/L 16-61 [facility] CO2 [Moles/Vol] 23.0 mmol/L 21.0-32.0 [facility] Globulin (S) [Mass/Vol] 4.2 g/dL 2.2-4.2 [facility] Lipase [Catalytic activity/Vol] 351 U/L 13-75 [facility] Comment on above: Please note:LIPASE r evised reference range effective 23. New Lipase methodology. Expected to produce lower values than the previous assay method. NEW Reference Range: 13 - 75 U/L Urea nitrogen/Creatinine [Mass ratio] 7.2 mg/mg 10-20 [facility] Laboratory - Hematology and Cell countsOrdered By: Magno Mora on 04-30-2023 Erythrocyte distribution width (RBC) [Entitic vol] 40.9 fL 35.1-43.9 [facility] Erythrocyte distribution width (RBC) [Ratio] 12.5 % 11.6-14.6 [facility] Immature granulocytes/100 WBC (Bld) 0.400 % 0.0-0.9 [facility] Comment on above: IG% - Immature Granu locytes (promyelocytes, myelocytes and metamyelocytes) > 1% indicates that a LEFT SHIFT is Present. MCH (RBC) [Entitic mass] 31.4 pg 27.0-32.0 [facility] Nucleated RBC/100 WBC (Bld) [Ratio] 0 % 0-5 [facility] MCHC Auto (RBC) [Mass/Vol]Or dered By: Magno Mora on 04-30-2023 MCHC (RBC) [Mass/Vol] 35.3 g/dL 32-36 [facility] No Panel InformationOrdered By: Magno Mora on 04-30-2023 Estimated Creatinine Clearance Calc 85.71 ml/min [facility] Estimated GFR (MDRD) Amer 102 mL/min >60 [facility] Comment on above: GFR Calc Estimated GFR (MDRD) Non-Af Amer 84 mL/min >60 [facility] Comment on above: Non- GFR Calc Ethyl Alcohol Level 63.0 mg/dL [facility] Comment on above: The serum:whole bloo d ethanol ratio is approximately 1.14and varies slightly with hematocrit. Medical Alcohol reference interval and critical value innon-tolerant individuals; 50 - 100 Impairment 100 Intoxication 100 - 250 Severe Poisoning 250 - 400 Deep/possible fatal coma Platelets bldOrdered By: Juan Mora on 04-30-2023 Platelets (Bld) [#/Vol] 240 10*3/uL 150-450 [facility] Serum or plasma albumin mc urement (mass/volume)Ordered By: Magno Mora on 04-30-2023 Albumin [Mass/Vol] 4.1 g/dL 3.2-5.0 [facility] Serum or plasma albumin/glob ulin mass ratioOrdered By: Magno Mora on 04-30-2023 Albumin/Globulin [Mass ratio] 1.0 {ratio} 0.9-2.4 [facility] Serum or plasma calcium mc urement (mass/volume)Ordered By: Magno Mora on 04-30-2023 Calcium [Mass/Vol] 9.8 mg/dL 8.5-10.1 [facility] Serum or plasma creatinine m easurement (mass/volume)Ordered By: Magno Mora on 04-30-2023 Creatinine [Mass/Vol] 0.97 mg/dL 0.70-1.30 [facility] Comment on above: The validity of the calculated GFR & GFRAA in patients over 70 years has not been determined. Clinical correlation is essential. Serum or plasma urea nitroge n measurement (mass/volume)Ordered By: Magno Mora on 04-30-2023 Urea nitrogen [Mass/Vol] 7 mg/dL 7-18 [facility] Thin prep Papanicolaou smear with manual screeningOrdered By: Magno Mora on 04-30-2023 Thin prep Papanicolaou smear with manual screening 17 U/L 15-37 [facility] Thin prep Papanicolaou smear with manual screening 13 5-15 [facility] Absolute lymphocyte countOrd ered By: Dr. Gandhi on 03-10-2023 Lymphocytes Auto (Unsp spec) [#/Vol] 2.72 10*3/uL 0.83-4.51 [facility] Basophil percentageOrdered B y: Dr. Gandhi on 03-10-2023 Basophils/100 WBC (Bld) 0.3 % 0-1 [facility] Bilirubin [Mass/Vol] 0.70 mg/dL 0.20-1.00 [facility] Comment on above: For patients on eltr ombopag therapy, use of Dimension [place] TBIL is not recommended. Chloride [Moles/Vol] 98 mmol/L 98-107 [facility] Eosinophils/100 WBC (Bld) 1.5 % 0-5 [facility] Glucose [Mass/Vol] 223 mg/dL 74-106 [facility] Comment on above: Glucose result great er than or equal to 200 mg/dLsuggests DIABETES MELLITUS per A.D.A. criteria. Neutrophils (Bld) [#/Vol] 8.3 10*3/uL 2.0-7.7 [facility] Neutrophils/100 WBC (Bld) 68.6 % 47-70 [facility] Potassium [Moles/Vol] 3.8 mmol/L 3.5-5.1 [facility] Comment on above: Moderate Hemolysis, Result may be falsely increased. Protein [Mass/Vol] 7.6 g/dL 6.4-8.2 [facility] Sodium [Moles/Vol] 131 mmol/L 136-145 [facility] WBC (Bld) [#/Vol] 12.1 10*3/uL 4.4-11.0 [facility] Blood erythrocytes count (nu mber/volume)Ordered By: Dr. Gandhi on 03-10-2023 RBC (Bld) [#/Vol] 4.30 10*6/uL 4.6-6.2 [facility] Blood hemoglobin measurement (mass/volume)Ordered By: Dr. Gandhi on 03-10-2023 Hemoglobin (Bld) [Mass/Vol] 13.9 g/dL 13.0-16.5 [facility] Blood lymphocytes/100 leukoc ytesOrdered By: Dr. Gandhi on 03-10-2023 Lymphocytes/100 WBC (Bld) 22.4 % 19-41 [facility] Blood monocytes/100 leukocyt esOrdered By: Dr. Gandhi on 03-10-2023 Monocytes/100 WBC (Bld) 7.0 % 0-10 [facility] Blood platelet mean volumeOr dered By: Dr. Gandhi on 03-10-2023 Platelet mean volume (Bld) [Entitic vol] 9.5 fL 6.2-12.0 [facility] Determination of erythrocyte mean corpuscular volume (MCV)Ordered By: Dr. Gadnhi on 03-10-2023 MCV (RBC) [Entitic vol] 92.6 fL 80-94 [facility] Hematocrit Auto (Bld) [Volum e fraction]Ordered By: Dr. Gandhi on 03-10-2023 Hematocrit (Bld) [Volume fraction] 39.8 % 40-54 [facility] Laboratory - Chemistry and C hemistry - challengeOrdered By: Dr. Gandhi on 03-10-2023 ALP [Catalytic activity/Vol] 66 U/L 45-117 [facility] ALT [Catalytic activity/Vol] 17 U/L 16-61 [facility] CO2 [Moles/Vol] 24.0 mmol/L 21.0-32.0 [facility] Globulin (S) [Mass/Vol] 3.8 g/dL 2.2-4.2 [facility] Lipase [Catalytic activity/Vol] 129 U/L 13-75 [facility] Comment on above: Please note:LIPASE r evised reference range effective 23. New Lipase methodology. Expected to produce lower values than the previous assay method. NEW Reference Range: 13 - 75 U/L Urea nitrogen/Creatinine [Mass ratio] 11.4 mg/mg 10-20 [facility] Laboratory - Hematology and Cell countsOrdered By: Dr. Gandhi on 03-10-2023 Erythrocyte distribution width (RBC) [Entitic vol] 43.2 fL 35.1-43.9 [facility] Erythrocyte distribution width (RBC) [Ratio] 12.7 % 11.6-14.6 [facility] Immature granulocytes/100 WBC (Bld) 0.200 % 0.0-0.9 [facility] Comment on above: IG% - Immature Granu locytes (promyelocytes, myelocytes and metamyelocytes) > 1% indicates that a LEFT SHIFT is Present. MCH (RBC) [Entitic mass] 32.3 pg 27.0-32.0 [facility] Nucleated RBC/100 WBC (Bld) [Ratio] 0 % 0-5 [facility] MCHC Auto (RBC) [Mass/Vol]Or dered By: Dr. Gandhi on 03-10-2023 MCHC (RBC) [Mass/Vol] 34.9 g/dL 32-36 [facility] No Panel InformationOrdered By: Dr. Gandhi on 03-10-2023 Estimated Creatinine Clearance Calc 73.82 ml/min [facility] Estimated GFR (MDRD) Amer 85 mL/min >60 [facility] Comment on above: GFR Calc Estimated GFR (MDRD) Non-Af Amer 70 mL/min >60 [facility] Comment on above: Non- GFR Calc Platelets bldOrdered By: Dr. Gandhi on 03-10-2023 Platelets (Bld) [#/Vol] 166 10*3/uL 150-450 [facility] Serum or plasma albumin mc urement (mass/volume)Ordered By: Dr. Gandhi on 03-10-2023 Albumin [Mass/Vol] 3.8 g/dL 3.2-5.0 [facility] Serum or plasma albumin/glob ulin mass ratioOrdered By: Dr. Gandhi on 03-10-2023 Albumin/Globulin [Mass ratio] 1.0 {ratio} 0.9-2.4 [facility] Serum or plasma calcium mc urement (mass/volume)Ordered By: Dr. Gandhi on 03-10-2023 Calcium [Mass/Vol] 9.7 mg/dL 8.5-10.1 [facility] Serum or plasma creatinine m easurement (mass/volume)Ordered By: Dr. Gandhi on 03-10-2023 Creatinine [Mass/Vol] 1.14 mg/dL 0.70-1.30 [facility] Comment on above: The validity of the calculated GFR & GFRAA in patients over 70 years has not been determined. Clinical correlation is essential. Serum or plasma urea nitroge n measurement (mass/volume)Ordered By: Dr. Gandhi on 03-10-2023 Urea nitrogen [Mass/Vol] 13 mg/dL 7-18 [facility] Thin prep Papanicolaou smear with manual screeningOrdered By: Dr. Gandhi on 03-10-2023 Thin prep Papanicolaou smear with manual screening 21 U/L 15 [facility] Comment on above: Moderate Hemolysis, Result may be falsely increased. Thin prep Papanicolaou smear with manual screening 9 5-15 [facility] GLUCOSE, BLOOD (POC)on 02-06 Glucose [Mass/Vol] 397 mg/dL Abnormal 74 - 99 mg/dL [facility] Basophil percentageOrdered B y: Dr. Burnett on 02-02-2023 Ammonia (P) [Moles/Vol] 44.0 umol/L [facility] Basophil percentage 44.0 umol/L [facility] No Panel InformationOrdered By: Dr. Burnett on 02-02-2023 Levetiracetam (Keppra) Level 15.1 ug/mL 10.0-40.0 [facility] Comment on above: Performed at: [address] [place] [id number] Director: Fam Talbert MD, Phone: [phone] 15.1 ug/mL 10.0-40.0 [facility] Absolute lymphocyte countOrd ered By: Dr. Dickson on 01-22-2023 Lymphocytes Auto (Unsp spec) [#/Vol] 2.82 10*3/uL 0.83-4.51 [facility] Basophil percentageOrdered B y: Dr. Dickson on 01-22-2023 Basophil percentage 420 mg/dL 74-106 [facility] Basophil percentage 6.3 g/dL 6.4-8.2 [facility] Basophil percentage 0.60 mg/dL 0.20-1.00 [facility] Basophil percentage 135 mmol/L 136-145 [facility] Basophil percentage 3.7 mmol/L 3.5-5.1 [facility] Basophil percentage 104 mmol/L 98-107 [facility] Basophils (Bld) [#/Vol] 12.7 10*3/uL 4.4-11.0 [facility] Basophils (Bld) [#/Vol] 8.7 10*3/uL 2.0-7.7 [facility] Basophils/100 WBC (Bld) 68.2 % 47-70 [facility] Basophils/100 WBC (Bld) 0.9 % 0-5 [facility] Basophils/100 WBC (Bld) 0.4 % 0-1 [facility] Bilirubin [Mass/Vol] 0.60 mg/dL 0.20-1.00 [facility] Comment on above: For patients on eltr ombopag therapy, use of Dimension [place] TBIL is not recommended. Chloride [Moles/Vol] 104 mmol/L 98-107 [facility] Eosinophils/100 WBC (Bld) 0.9 % 0-5 [facility] Glucose [Mass/Vol] 420 mg/dL 74-106 [facility] Comment on above: Glucose result great er than or equal to 200 mg/dLsuggests DIABETES MELLITUS per A.D.A. criteria. Neutrophils (Bld) [#/Vol] 8.7 10*3/uL 2.0-7.7 [facility] Neutrophils/100 WBC (Bld) 68.2 % 47-70 [facility] Potassium [Moles/Vol] 3.7 mmol/L 3.5-5.1 [facility] Protein [Mass/Vol] 6.3 g/dL 6.4-8.2 [facility] Sodium [Moles/Vol] 135 mmol/L 136-145 [facility] WBC (Bld) [#/Vol] 12.7 10*3/uL 4.4-11.0 [facility] Blood erythrocytes count (nu mber/volume)Ordered By: Dr. Dickson on 01-22-2023 RBC (Bld) [#/Vol] 3.59 10*6/uL 4.6-6.2 [facility] Blood hemoglobin measurement (mass/volume)Ordered By: Dr. Dickson on 01-22-2023 Hemoglobin (Bld) [Mass/Vol] 11.6 g/dL 13.0-16.5 [facility] Blood lymphocytes/100 leukoc ytesOrdered By: Dr. Dickson on 01-22-2023 Lymphocytes/100 WBC (Bld) 22.2 % 19-41 [facility] Blood monocytes/100 leukocyt esOrdered By: Dr. Dickson on 01-22-2023 Monocytes/100 WBC (Bld) 7.6 % 0-10 [facility] Blood platelet mean volumeOr dered By: Dr. Dickson on 01-22-2023 Platelet mean volume (Bld) [Entitic vol] 9.3 fL 6.2-12.0 [facility] Determination of erythrocyte mean corpuscular volume (MCV)Ordered By: Dr. Dickson on 01-22-2023 MCV (RBC) [Entitic vol] 95.5 fL 80-94 [facility] Direct bilirubinOrdered By: Dr. Dickson on 01-22-2023 Bilirubin.direct [Mass/Vol] 0.19 mg/dL 0.00-0.30 [facility] Hematocrit Auto (Bld) [Volum e fraction]Ordered By: Dr. Dickson on 01-22-2023 Hematocrit (Bld) [Volume fraction] 34.3 % 40-54 [facility] Laboratory - Chemistry and C hemistry - challengeOrdered By: Dr. Dickson on 01-22-2023 ALP [Catalytic activity/Vol] 88 U/L 45-117 [facility] ALT [Catalytic activity/Vol] 23 U/L 16-61 [facility] CO2 [Moles/Vol] 26.0 mmol/L 21.0-32.0 [facility] Globulin (S) [Mass/Vol] 3.3 g/dL 2.2-4.2 [facility] Lipase [Catalytic activity/Vol] 42 U/L 13-75 [facility] Comment on above: Please note:LIPASE r evised reference range effective 23. New Lipase methodology. Expected to produce lower values than the previous assay method. NEW Reference Range: 13 - 75 U/L Urea nitrogen/Creatinine [Mass ratio] 16.2 mg/mg 10-20 [facility] - Hematology and Cell countsOrdered By: Dr. Dickson on 01-22-2023 Erythrocyte distribution width (RBC) [Entitic vol] 44.6 fL 35.1-43.9 [facility] Erythrocyte distribution width (RBC) [Ratio] 12.8 % 11.6-14.6 [facility] Immature granulocytes/100 WBC (Bld) 0.700 % 0.0-0.9 [facility] Comment on above: IG% - Immature Granu locytes (promyelocytes, myelocytes and metamyelocytes) > 1% indicates that a LEFT SHIFT is Present. MCH (RBC) [Entitic mass] 32.3 pg 27.0-32.0 [facility] Nucleated RBC/100 WBC (Bld) [Ratio] 0 % 0-5 [facility] MCHC Auto (RBC) [Mass/Vol]Or dered By: Dr. Dickson on 01-22-2023 MCHC (RBC) [Mass/Vol] 33.8 g/dL 32-36 [facility] No Panel InformationOrdered By: Dr. Dickson on 01-22-2023 Estimated Creatinine Clearance Calc 71.93 ml/min [facility] Estimated GFR (MDRD) Amer 82 mL/min >60 [facility] Comment on above: GFR Calc Estimated GFR (MDRD) Non-Af Amer 68 mL/min >60 [facility] Comment on above: Non- GFR Calc Troponin I High Sensitivity 8 pg/mL 3.0-78.0 [facility] Comment on above: Please Note: New [place] t Units and Gender Specific Reference Ranges. For more information see Policy Stat Procedure [place] High Sensitivity Troponin (TNIH) and attachments. 32.3 pg 27.0-32.0 [facility] 12.8 % 11.6-14.6 [facility] 44.6 fl 35.1-43.9 [facility] 0.700 % 0.0-0.9 [facility] 0 % 0-5 [facility] 68 mL/min >60 [facility] 82 mL/min >60 [facility] 71.93 ml/min [facility] 16.2 RATIO 10-20 [facility] 3.3 g/dL 2.2-4.2 [facility] 42 U/L 13-75 [facility] 8 pg/mL 3.0-78.0 [facility] 88 U/L 45-117 [facility] 23 U/L 16-61 [facility] 26.0 mmol/L 21.0-32.0 [facility] Platelets bldOrdered By: Dr. Dickson on 01-22-2023 Platelets (Bld) [#/Vol] 172 10*3/uL 150-450 [facility] Serum or plasma albumin mc urement (mass/volume)Ordered By: Dr. Dickson on 01-22-2023 Albumin [Mass/Vol] 3.0 g/dL 3.2-5.0 [facility] Serum or plasma calcium mc urement (mass/volume)Ordered By: Dr. Dickson on 01-22-2023 Calcium [Mass/Vol] 9.1 mg/dL 8.5-10.1 [facility] Serum or plasma creatinine m easurement (mass/volume)Ordered By: Dr. Dickson on 01-22-2023 Creatinine [Mass/Vol] 1.17 mg/dL 0.70-1.30 [facility] Comment on above: The validity of the calculated GFR & GFRAA in patients over 70 years has not been determined. Clinical correlation is essential. Serum or plasma urea nitroge n measurement (mass/volume)Ordered By: Dr. Dickson on 01-22-2023 Urea nitrogen [Mass/Vol] 19 mg/dL 7-18 [facility] Thin prep Papanicolaou smear with manual screeningOrdered By: Dr. Dickson on 01-22-2023 Thin prep Papanicolaou smear with manual screening 11 U/L 15-37 [facility] Thin prep Papanicolaou smear with manual screening 5 5-15 [facility] Absolute lymphocyte countOrd ered By: Dr. Rios on 01-21-2023 Lymphocytes Auto (Unsp spec) [#/Vol] 3.18 10*3/uL 0.83-4.51 [facility] Basophil percentageOrdered B y: Dr. Rios on 01-21-2023 Basophil percentage 0 SEEN /hpf 0-5 [facility] Basophil percentage 383 mg/dL 74-106 [facility] Basophil percentage 6.4 g/dL 6.4-8.2 [facility] Basophil percentage 0.60 mg/dL 0.20-1.00 [facility] Basophil percentage 133 mmol/L 136-145 [facility] Basophil percentage 3.7 mmol/L 3.5-5.1 [facility] Basophil percentage 100 mmol/L 98-107 [facility] Basophils (Bld) [#/Vol] 12.6 10*3/uL 4.4-11.0 [facility] Basophils (Bld) [#/Vol] 8.3 10*3/uL 2.0-7.7 [facility] Basophils/100 WBC (Bld) 0.4 % 0-1 [facility] Basophils/100 WBC (Bld) 66.2 % 47-70 [facility] Basophils/100 WBC (Bld) 1.0 % 0-5 [facility] Bilirubin [Mass/Vol] 0.60 mg/dL 0.20-1.00 [facility] Comment on above: For patients on eltr ombopag therapy, use of Dimension [place] TBIL is not recommended. Chloride [Moles/Vol] 100 mmol/L 98-107 [facility] Eosinophils/100 WBC (Bld) 1.0 % 0-5 [facility] Glucose [Mass/Vol] 383 mg/dL 74-106 [facility] Comment on above: Glucose result great er than or equal to 200 mg/dLsuggests DIABETES MELLITUS per A.D.A. criteria. Neutrophils (Bld) [#/Vol] 8.3 10*3/uL 2.0-7.7 [facility] Neutrophils/100 WBC (Bld) 66.2 % 47-70 [facility] Potassium [Moles/Vol] 3.7 mmol/L 3.5-5.1 [facility] Comment on above: Slight Hemolysis, Re sult may be falsely increased. Protein [Mass/Vol] 6.4 g/dL 6.4-8.2 [facility] Sodium [Moles/Vol] 133 mmol/L 136-145 [facility] WBC (Bld) [#/Vol] 12.6 10*3/uL 4.4-11.0 [facility] Bilirubin Test strip Ql (U)O rdered By: Dr. Rios on 01-21-2023 Bilirubin Ql (U) Negative Negative [facility] Blood erythrocytes count (nu mber/volume)Ordered By: Dr. Rios on 01-21-2023 RBC (Bld) [#/Vol] 3.79 10*6/uL 4.6-6.2 [facility] Blood hemoglobin measurement (mass/volume)Ordered By: Dr. Rios on 01-21-2023 Hemoglobin (Bld) [Mass/Vol] 12.1 g/dL 13.0-16.5 [facility] Blood lymphocytes/100 leukoc ytesOrdered By: Dr. Rios on 01-21-2023 Lymphocytes/100 WBC (Bld) 25.3 % 19-41 [facility] Blood monocytes/100 leukocyt esOrdered By: Dr. Rios on 01-21-2023 Monocytes/100 WBC (Bld) 6.3 % 0-10 [facility] Blood platelet mean volumeOr dered By: Dr. Rios on 01-21-2023 Platelet mean volume (Bld) [Entitic vol] 9.6 fL 6.2-12.0 [facility] Determination of erythrocyte mean corpuscular volume (MCV)Ordered By: Dr. Rios on 01-21-2023 MCV (RBC) [Entitic vol] 93.7 fL 80-94 [facility] Hematocrit Auto (Bld) [Volum e fraction]Ordered By: Dr. Rios on 01-21-2023 Hematocrit (Bld) [Volume fraction] 35.5 % 40-54 [facility] Ketones Test strip Ql (U)Ord ered By: Dr. Rios on 01-21-2023 Ketones Ql (U) Negative Negative [facility] Laboratory - Chemistry and C hemistry - challengeOrdered By: Dr. Rios on 01-21-2023 ALP [Catalytic activity/Vol] 81 U/L 45-117 [facility] ALT [Catalytic activity/Vol] 24 U/L 16-61 [facility] CO2 [Moles/Vol] 25.0 mmol/L 21.0-32.0 [facility] Globulin (S) [Mass/Vol] 3.2 g/dL 2.2-4.2 [facility] Lipase [Catalytic activity/Vol] 40 U/L 13-75 [facility] Comment on above: Please note:LIPASE r evised reference range effective 23. New Lipase methodology. Expected to produce lower values than the previous assay method. NEW Reference Range: 13 - 75 U/L Urea nitrogen/Creatinine [Mass ratio] 16.8 mg/mg 10-20 [facility] - Hematology and Cell countsOrdered By: Dr. Rios on 01-21-2023 Erythrocyte distribution width (RBC) [Entitic vol] 42.9 fL 35.1-43.9 [facility] Erythrocyte distribution width (RBC) [Ratio] 12.5 % 11.6-14.6 [facility] Immature granulocytes/100 WBC (Bld) 0.800 % 0.0-0.9 [facility] Comment on above: IG% - Immature Granu locytes (promyelocytes, myelocytes and metamyelocytes) > 1% indicates that a LEFT SHIFT is Present. MCH (RBC) [Entitic mass] 31.9 pg 27.0-32.0 [facility] Nucleated RBC/100 WBC (Bld) [Ratio] 0 % 0-5 [facility] MCHC Auto (RBC) [Mass/Vol]Or dered By: Dr. Rios on 01-21-2023 MCHC (RBC) [Mass/Vol] 34.1 g/dL 32-36 [facility] Mucus LM Ql (Urine sed)Order ed By: Dr. Rios on 01-21-2023 Mucus Ql (Urine sed) 0 SEEN /hpf [facility] Nitrite Test strip Ql (U)Ord ered By: Dr. Rios on 01-21-2023 Nitrite Ql (U) Negative Negative [facility] No Panel InformationOrdered By: Dr. Rios on 01-21-2023 Estimated Creatinine Clearance Calc 74.47 ml/min [facility] Estimated GFR (MDRD) Amer 86 mL/min >60 [facility] Comment on above: GFR Calc Estimated GFR (MDRD) Non-Af Amer 71 mL/min >60 [facility] Comment on above: Non- GFR Calc 31.9 pg 27.0-32.0 [facility] 12.5 % 11.6-14.6 [facility] 42.9 fl 35.1-43.9 [facility] 0.800 % 0.0-0.9 [facility] 0 % 0-5 [facility] 71 mL/min >60 [facility] 86 mL/min >60 [facility] 74.47 ml/min [facility] 16.8 RATIO 10-20 [facility] 3.2 g/dL 2.2-4.2 [facility] 40 U/L 13-75 [facility] 81 U/L 45-117 [facility] 24 U/L 16-61 [facility] 25.0 mmol/L 21.0-32.0 [facility] Platelets bldOrdered By: Dr. Rios on 01-21-2023 Platelets (Bld) [#/Vol] 180 10*3/uL 150-450 [facility] Protein Test strip Ql (U)Ord ered By: Dr. Rios on 01-21-2023 Protein Ql (U) Negative Negative [facility] Serum or plasma albumin mc urement (mass/volume)Ordered By: Dr. Rios on 01-21-2023 Albumin [Mass/Vol] 3.2 g/dL 3.2-5.0 [facility] Serum or plasma albumin/glob ulin mass ratioOrdered By: Dr. Rios on 01-21-2023 Albumin/Globulin [Mass ratio] 1.0 {ratio} 0.9-2.4 [facility] Serum or plasma calcium mc urement (mass/volume)Ordered By: Dr. Rios on 01-21-2023 Calcium [Mass/Vol] 9.2 mg/dL 8.5-10.1 [facility] Serum or plasma creatinine m easurement (mass/volume)Ordered By: Dr. Rios on 01-21-2023 Creatinine [Mass/Vol] 1.13 mg/dL 0.70-1.30 [facility] Comment on above: The validity of the calculated GFR & GFRAA in patients over 70 years has not been determined. Clinical correlation is essential. Serum or plasma urea nitroge n measurement (mass/volume)Ordered By: Dr. Rios on 01-21-2023 Urea nitrogen [Mass/Vol] 19 mg/dL 7-18 [facility] Squamous epithelial cells de tection in urine sediment by light microscopyOrdered By: Dr. Rios on 01-21-2023 Epithelial cells.squamous LM Ql (Urine sed) 0 SEEN /hpf 0-5 [facility] Thin prep Papanicolaou smear with manual screeningOrdered By: Dr. Rios on 01-21-2023 Thin prep Papanicolaou smear with manual screening 15 U/L 15-37 [facility] Comment on above: Slight Hemolysis, Re sult may be falsely increased. Thin prep Papanicolaou smear with manual screening 8 5-15 [facility] Urine blood detectionOrdered By: Dr. Rios on 01-21-2023 RBC Ql (U) Negative Negative [facility] RBC Ql (U) 0 SEEN /hpf 0-5 [facility] Urine clarityOrdered By: Dr. Rios on 01-21-2023 Clarity (U) Clear Clear [facility] Urine color determinationOrd ered By: Dr. Rios on 01-21-2023 Color (U) Yellow Yellow [facility] Urine glucose detectionOrder ed By: Dr. Rios on 01-21-2023 Glucose Ql (U) 1000 mg/dl Normal [facility] Urine leukocyte esterase det ection by dipstickOrdered By: Dr. Rios on 01-21-2023 Leukocyte esterase Test strip Ql (U) Negative Negative [facility] Urine pHOrdered By: Dr. Edel cuadra on 01-21-2023 pH (U) 6.0 [pH] 5.0 - 8.0 [facility] Urine sediment bacteria coun t by microscopy (number/high power field)Ordered By: Dr. Rios on 01-21-2023 Bacteria LM.HPF (Urine sed) [#/Area] 0 /[HPF] None Seen [facility] Urine specific gravity measu rementOrdered By: Dr. Rios on 01-21-2023 Specific gravity (U) [Rel density] 1.020 1.002-1.03 0 [facility] Urobilinogen Auto test strip Ql (U)Ordered By: Dr. Rios on 01-21-2023 Urobilinogen Ql (U) Normal mg/dl Normal [facility] Absolute lymphocyte countOrd ered By: Dr. Gallagher on 12-26-2022 Lymphocytes Auto (Unsp spec) [#/Vol] 5.74 10*3/uL 0.83-4.51 [facility] Basophil percentageOrdered B y: Dr. Gallagher on 12-26-2022 Amylase [Catalytic activity/Vol] 57 U/L 25-115 [facility] Basophil percentage 310 mg/dL 74-106 [facility] Basophil percentage 7.3 g/dL 6.4-8.2 [facility] Basophil percentage 57 U/L 25-115 [facility] Basophil percentage 0.50 mg/dL 0.20-1.00 [facility] Basophil percentage 131 mmol/L 136-145 [facility] Basophil percentage 3.4 mmol/L 3.5-5.1 [facility] Basophil percentage 100 mmol/L 98-107 [facility] Basophils (Bld) [#/Vol] 13.0 10*3/uL 4.4-11.0 [facility] Basophils (Bld) [#/Vol] 6.2 10*3/uL 2.0-7.7 [facility] Basophils/100 WBC (Bld) 47.8 % 47-70 [facility] Basophils/100 WBC (Bld) 0.9 % 0-5 [facility] Basophils/100 WBC (Bld) 0.8 % 0-1 [facility] Bilirubin [Mass/Vol] 0.50 mg/dL 0.20-1.00 [facility] Comment on above: For patients on eltr ombopag therapy, use of Dimension [place] TBIL is not recommended. Chloride [Moles/Vol] 100 mmol/L 98-107 [facility] Eosinophils/100 WBC (Bld) 0.9 % 0-5 [facility] [facility] Glucose [Mass/Vol] 310 mg/dL 74-106 [facility] Comment on above: Glucose result great er than or equal to 200 mg/dLsuggests DIABETES MELLITUS per A.D.A. criteria. Neutrophils (Bld) [#/Vol] 6.2 10*3/uL 2.0-7.7 [facility] Neutrophils/100 WBC (Bld) 47.8 % 47-70 [facility] Potassium [Moles/Vol] 3.4 mmol/L 3.5-5.1 [facility] Protein [Mass/Vol] 7.3 g/dL 6.4-8.2 [facility] Sodium [Moles/Vol] 131 mmol/L 136-145 [facility] WBC (Bld) [#/Vol] 13.0 10*3/uL 4.4-11.0 [facility] Blood erythrocytes count (nu mber/volume)Ordered By: Dr. Gallagher on 12-26-2022 RBC (Bld) [#/Vol] 4.44 10*6/uL 4.6-6.2 [facility] Blood hemoglobin measurement (mass/volume)Ordered By: Dr. Gallagher on 12-26-2022 Hemoglobin (Bld) [Mass/Vol] 14.3 g/dL 13.0-16.5 [facility] Blood lymphocytes/100 leukoc ytesOrdered By: Dr. Gallagher on 12-26-2022 Lymphocytes/100 WBC (Bld) 44.2 % 19-41 [facility] Blood monocytes/100 leukocyt esOrdered By: Dr. Gallagher on 12-26-2022 Monocytes/100 WBC (Bld) 5.2 % 0-10 [facility] Blood platelet mean volumeOr dered By: Dr. Gallagher on 12-26-2022 Platelet mean volume (Bld) [Entitic vol] 10.0 fL 6.2-12.0 [facility] Determination of erythrocyte mean corpuscular volume (MCV)Ordered By: Dr. Gallagher on 12-26-2022 MCV (RBC) [Entitic vol] 91.4 fL 80-94 [facility] Hematocrit Auto (Bld) [Volum e fraction]Ordered By: Dr. Gallagher on 12-26-2022 Hematocrit (Bld) [Volume fraction] 40.6 % 40-54 [facility] Laboratory - Chemistry and C hemistry - challengeOrdered By: Dr. Gallagher on 12-26-2022 ALP [Catalytic activity/Vol] 67 U/L 45-117 [facility] ALT [Catalytic activity/Vol] 25 U/L 16-61 [facility] CO2 [Moles/Vol] 20.0 mmol/L 21.0-32.0 [facility] Globulin (S) [Mass/Vol] 3.6 g/dL 2.2-4.2 [facility] Lipase [Catalytic activity/Vol] 645 U/L 73-393 [facility] Urea nitrogen/Creatinine [Mass ratio] 14.2 mg/mg 10-20 [facility] Laboratory - Hematology and Cell countsOrdered By: Dr. Gallagher on 12-26-2022 Erythrocyte distribution width (RBC) [Entitic vol] 40.6 fL 35.1-43.9 [facility] Erythrocyte distribution width (RBC) [Ratio] 12.1 % 11.6-14.6 [facility] Immature granulocytes/100 WBC (Bld) 1.100 % 0.0-0.9 [facility] Comment on above: IG% - Immature Granu locytes (promyelocytes, myelocytes and metamyelocytes) > 1% indicates that a LEFT SHIFT is Present. MCH (RBC) [Entitic mass] 32.2 pg 27.0-32.0 [facility] Nucleated RBC/100 WBC (Bld) [Ratio] 0 % 0-5 [facility] MCHC Auto (RBC) [Mass/Vol]Or dered By: Dr. Gallagher on 12-26-2022 MCHC (RBC) [Mass/Vol] 35.2 g/dL 32-36 [facility] No Panel InformationOrdered By: Dr. Gallagher on 12-26-2022 Estimated Creatinine Clearance Calc 74.47 ml/min [facility] Estimated GFR (MDRD) Amer 86 mL/min >60 [facility] Comment on above: GFR Calc Estimated GFR (MDRD) Non-Af Amer 71 mL/min >60 [facility] Comment on above: Non- GFR Calc 32.2 pg 27.0-32.0 [facility] 12.1 % 11.6-14.6 [facility] 40.6 fl 35.1-43.9 [facility] 1.100 % 0.0-0.9 [facility] 0 % 0-5 [facility] 71 mL/min >60 [facility] 86 mL/min >60 [facility] 74.47 ml/min [facility] 14.2 RATIO 10-20 [facility] 3.6 g/dL 2.2-4.2 [facility] 645 U/L 73-393 [facility] 67 U/L 45-117 [facility] 25 U/L 16-61 [facility] 20.0 mmol/L 21.0-32.0 [facility] Platelets bldOrdered By: Dr. Gallagher on 12-26-2022 Platelets (Bld) [#/Vol] 219 10*3/uL 150-450 [facility] Serum or plasma albumin mc urement (mass/volume)Ordered By: Dr. Gallagher on 12-26-2022 Albumin [Mass/Vol] 3.7 g/dL 3.2-5.0 [facility] Serum or plasma albumin/glob ulin mass ratioOrdered By: Dr. Gallagher on 12-26-2022 Albumin/Globulin [Mass ratio] 1.0 {ratio} 0.9-2.4 [facility] Serum or plasma calcium mc urement (mass/volume)Ordered By: Dr. Gallagher on 12-26-2022 Calcium [Mass/Vol] 9.7 mg/dL 8.5-10.1 [facility] Serum or plasma creatinine m easurement (mass/volume)Ordered By: Dr. Gallagher on 12-26-2022 Creatinine [Mass/Vol] 1.13 mg/dL 0.70-1.30 [facility] Comment on above: The validity of the calculated GFR & GFRAA in patients over 70 years has not been determined. Clinical correlation is essential. Serum or plasma urea nitroge n measurement (mass/volume)Ordered By: Dr. Gallagher on 12-26-2022 Urea nitrogen [Mass/Vol] 16 mg/dL 7-18 [facility] Thin prep Papanicolaou smear with manual screeningOrdered By: Dr. Gallagher on 12-26-2022 Thin prep Papanicolaou smear with manual screening 21 U/L 15-37 [facility] Thin prep Papanicolaou smear with manual screening 11 5-15 [facility] STREP A MOLECULAR (POC)on Procedural Control Valid [facility] Strep A (POCT) Negative Negative [facility] Basophil percentageOrdered B y: Dr. Cherry on 12-14-2022 Basophil percentage 2.3 mmol/L 0.4-2.0 [facility] Lactate [Moles/Vol] 2.3 mmol/L 0.4-2.0 [facility] Comment on above: Critical Result(s) C alled at: 03:15:52 12/14/2022 by: GELY Martinez RN ER. Results read back by same. Glucose Glucometer (BldC) [M ass/Vol]Ordered By: Dr. Cherry on 12-14-2022 Glucose [Mass/Vol] 370 mg/dL 74-106 [facility] Comment on above: MANAGEMENT OF PATIEN T CARE PER NURSING PROTOCOL Serum or plasma acetone mc urement (mass/volume)Ordered By: Dr. Cherry on 12-14-2022 Acetone [Mass/Vol] Negative NEG [facility] Absolute lymphocyte countOrd ered By: Dr. Cherry on 12-13-2022 Lymphocytes Auto (Unsp spec) [#/Vol] 2.12 10*3/uL 0.83-4.51 [facility] Basophil percentageOrdered B y: Dr. Cherry on 12-13-2022 Basophil percentage 426 mg/dL 74-106 [facility] Basophil percentage 8.1 g/dL 6.4-8.2 [facility] Basophil percentage 0.40 mg/dL 0.20-1.00 [facility] Basophil percentage 133 mmol/L 136-145 [facility] Basophil percentage 3.7 mmol/L 3.5-5.1 [facility] Basophil percentage 97 mmol/L 98-107 [facility] Basophils (Bld) [#/Vol] 20.5 10*3/uL 4.4-11.0 [facility] Basophils (Bld) [#/Vol] 17.6 10*3/uL 2.0-7.7 [facility] Basophils/100 WBC (Bld) 0.3 % 0-1 [facility] Basophils/100 WBC (Bld) 85.9 % 47-70 [facility] Basophils/100 WBC (Bld) 0.0 % 0-5 [facility] Bilirubin [Mass/Vol] 0.40 mg/dL 0.20-1.00 [facility] Comment on above: For patients on eltr ombopag therapy, use of Dimension [place] TBIL is not recommended. Chloride [Moles/Vol] 97 mmol/L 98-107 [facility] Eosinophils/100 WBC (Bld) 0.0 % 0-5 [facility] Glucose [Mass/Vol] 426 mg/dL 74-106 [facility] Comment on above: Glucose result great er than or equal to 200 mg/dLsuggests DIABETES MELLITUS per A.D.A. criteria. Neutrophils (Bld) [#/Vol] 17.6 10*3/uL 2.0-7.7 [facility] Neutrophils/100 WBC (Bld) 85.9 % 47-70 [facility] Potassium [Moles/Vol] 3.7 mmol/L 3.5-5.1 [facility] Protein [Mass/Vol] 8.1 g/dL 6.4-8.2 [facility] Sodium [Moles/Vol] 133 mmol/L 136-145 [facility] WBC (Bld) [#/Vol] 20.5 10*3/uL 4.4-11.0 [facility] Blood erythrocytes count (nu mber/volume)Ordered By: Dr. Cherry on 12-13-2022 RBC (Bld) [#/Vol] 4.50 10*6/uL 4.6-6.2 [facility] Blood hemoglobin measurement (mass/volume)Ordered By: Dr. Cherry on 12-13-2022 Hemoglobin (Bld) [Mass/Vol] 14.3 g/dL 13.0-16.5 [facility] Blood lymphocytes/100 leukoc ytesOrdered By: Dr. Cherry on 12-13-2022 Lymphocytes/100 WBC (Bld) 10.3 % 19-41 [facility] Blood monocytes/100 leukocyt esOrdered By: Dr. Cherry on 12-13-2022 Monocytes/100 WBC (Bld) 2.4 % 0-10 [facility] Blood platelet mean volumeOr dered By: Dr. Cherry on 12-13-2022 Platelet mean volume (Bld) [Entitic vol] 10.3 fL 6.2-12.0 [facility] Determination of erythrocyte mean corpuscular volume (MCV)Ordered By: Dr. Cherry on 12-13-2022 MCV (RBC) [Entitic vol] 91.6 fL 80-94 [facility] Hematocrit Auto (Bld) [Volum e fraction]Ordered By: Dr. Cherry on 12-13-2022 Hematocrit (Bld) [Volume fraction] 41.2 % 40-54 [facility] Laboratory - Chemistry and C hemistry - challengeOrdered By: Dr. Cherry on 12-13-2022 ALP [Catalytic activity/Vol] 89 U/L 45-117 [facility] ALT [Catalytic activity/Vol] 21 U/L 16-61 [facility] CO2 [Moles/Vol] 19.0 mmol/L 21.0-32.0 [facility] Globulin (S) [Mass/Vol] 4.1 g/dL 2.2-4.2 [facility] Lipase [Catalytic activity/Vol] 458 U/L 73-393 [facility] Urea nitrogen/Creatinine [Mass ratio] 14.2 mg/mg 10-20 [facility] Laboratory - Hematology and Cell countsOrdered By: Dr. Cherry on 12-13-2022 Erythrocyte distribution width (RBC) [Entitic vol] 40.3 fL 35.1-43.9 [facility] Erythrocyte distribution width (RBC) [Ratio] 11.9 % 11.6-14.6 [facility] Immature granulocytes/100 WBC (Bld) 1.100 % 0.0-0.9 [facility] Comment on above: IG% - Immature Granu locytes (promyelocytes, myelocytes and metamyelocytes) > 1% indicates that a LEFT SHIFT is Present. MCH (RBC) [Entitic mass] 31.8 pg 27.0-32.0 [facility] Nucleated RBC/100 WBC (Bld) [Ratio] 0 % 0-5 [facility] MCHC Auto (RBC) [Mass/Vol]Or dered By: Dr. Cherry on 12-13-2022 MCHC (RBC) [Mass/Vol] 34.7 g/dL 32-36 [facility] No Panel InformationOrdered By: Dr. Cherry on 12-13-2022 Estimated Creatinine Clearance Calc 62.80 ml/min [facility] Estimated GFR (MDRD) Amer 71 mL/min >60 [facility] Comment on above: GFR Calc Estimated GFR (MDRD) Non-Af Amer 58 mL/min >60 [facility] Comment on above: Non- GFR Calc Troponin I High Sensitivity 8 pg/mL 3.0-78.0 [facility] Comment on above: Please Note: New [place] t Units and Gender Specific Reference Ranges. For more information see Policy Stat Procedure [place] High Sensitivity Troponin (TNIH) and attachments. 31.8 pg 27.0-32.0 [facility] 11.9 % 11.6-14.6 [facility] 40.3 fl 35.1-43.9 [facility] 1.100 % 0.0-0.9 [facility] 0 % 0-5 [facility] 58 mL/min >60 [facility] 71 mL/min >60 [facility] 62.80 ml/min [facility] 14.2 RATIO 10-20 [facility] 4.1 g/dL 2.2-4.2 [facility] 458 U/L 73-393 [facility] 8 pg/mL 3.0-78.0 [facility] 89 U/L 45-117 [facility] 21 U/L 16-61 [facility] 19.0 mmol/L 21.0-32.0 [facility] Platelets bldOrdered By: Dr. Cherry on 12-13-2022 Platelets (Bld) [#/Vol] 229 10*3/uL 150-450 [facility] Serum or plasma albumin mc urement (mass/volume)Ordered By: Dr. Cherry on 12-13-2022 Albumin [Mass/Vol] 4.0 g/dL 3.2-5.0 [facility] Serum or plasma albumin/glob ulin mass ratioOrdered By: Dr. Cherry on 12-13-2022 Albumin/Globulin [Mass ratio] 1.0 {ratio} 0.9-2.4 [facility] Serum or plasma calcium mc urement (mass/volume)Ordered By: Dr. Cherry on 12-13-2022 Calcium [Mass/Vol] 9.8 mg/dL 8.5-10.1 [facility] Serum or plasma creatinine m easurement (mass/volume)Ordered By: Dr. hCerry on 12-13-2022 Creatinine [Mass/Vol] 1.34 mg/dL 0.70-1.30 [facility] Comment on above: The validity of the calculated GFR & GFRAA in patients over 70 years has not been determined. Clinical correlation is essential. Serum or plasma urea nitroge n measurement (mass/volume)Ordered By: Dr. Cherry on 12-13-2022 Urea nitrogen [Mass/Vol] 19 mg/dL 7-18 [facility] Thin prep Papanicolaou smear with manual screeningOrdered By: Dr. Cherry on 12-13-2022 Thin prep Papanicolaou smear with manual screening 8 U/L 15-37 [facility] Thin prep Papanicolaou smear with manual screening 17 5-15 [facility] Absolute lymphocyte countOrd ered By: Dr. Tidwell on 12-02-2022 Lymphocytes Auto (Unsp spec) [#/Vol] 3.76 10*3/uL 0.83-4.51 [facility] Basophil percentageOrdered B y: Taras Santamaria on 12-02-2022 Amylase [Catalytic activity/Vol] 63 U/L 25-115 [facility] Basophil percentage 63 U/L 25-115 [facility] Basophil percentageOrdered B y: Dr. Tidwell on 12-02-2022 Basophil percentage 127 mg/dL 74-106 [facility] Basophil percentage 6.9 g/dL 6.4-8.2 [facility] Basophil percentage 0.70 mg/dL 0.20-1.00 [facility] Basophil percentage 139 mmol/L 136-145 [facility] Basophil percentage 3.4 mmol/L 3.5-5.1 [facility] Basophil percentage 107 mmol/L 98-107 [facility] Basophils (Bld) [#/Vol] 11.9 10*3/uL 4.4-11.0 [facility] Basophils (Bld) [#/Vol] 7.3 10*3/uL 2.0-7.7 [facility] Basophils/100 WBC (Bld) 0.2 % 0-1 [facility] Basophils/100 WBC (Bld) 61.1 % 47-70 [facility] Bilirubin [Mass/Vol] 0.70 mg/dL 0.20-1.00 [facility] Comment on above: For patients on eltr ombopag therapy, use of Dimension [place] TBIL is not recommended. Chloride [Moles/Vol] 107 mmol/L 98-107 [facility] Eosinophils/100 WBC (Bld) 0.2 % 0-5 [facility] Glucose [Mass/Vol] 127 mg/dL 74-106 [facility] Comment on above: Fasting Glucose resu lt greater than or equal to 126 mg/dL suggests DIABETES MELLITUS per A.D.A. criteria. Neutrophils (Bld) [#/Vol] 7.3 10*3/uL 2.0-7.7 [facility] Neutrophils/100 WBC (Bld) 61.1 % 47-70 [facility] Potassium [Moles/Vol] 3.4 mmol/L 3.5-5.1 [facility] Protein [Mass/Vol] 6.9 g/dL 6.4-8.2 [facility] Sodium [Moles/Vol] 139 mmol/L 136-145 [facility] WBC (Bld) [#/Vol] 11.9 10*3/uL 4.4-11.0 [facility] Blood erythrocytes count (nu mber/volume)Ordered By: Dr. Tidwell on 12-02-2022 RBC (Bld) [#/Vol] 3.71 10*6/uL 4.6-6.2 [facility] Blood hemoglobin measurement (mass/volume)Ordered By: Dr. Tidwell on 12-02-2022 Hemoglobin (Bld) [Mass/Vol] 11.9 g/dL 13.0-16.5 [facility] Blood lymphocytes/100 leukoc ytesOrdered By: Dr. Tidwell on 12-02-2022 Lymphocytes/100 WBC (Bld) 31.5 % 19-41 [facility] Blood monocytes/100 leukocyt esOrdered By: Dr. Tidwell on 12-02-2022 Monocytes/100 WBC (Bld) 6.7 % 0-10 [facility] Blood platelet mean volumeOr dered By: Dr. Tidwell on 12-02-2022 Platelet mean volume (Bld) [Entitic vol] 9.4 fL 6.2-12.0 [facility] Determination of erythrocyte mean corpuscular volume (MCV)Ordered By: Dr. Tidwell on 12-02-2022 MCV (RBC) [Entitic vol] 91.9 fL 80-94 [facility] Erythrocyte sedimentation ra teOrdered By: Taras Santamaria on 12-02-2022 ESR (Bld) [Velocity] 19 mm/h 0-20 [facility] Glucose Glucometer (BldC) [M ass/Vol]Ordered By: Dr. Tidwell on 12-02-2022 Glucose [Mass/Vol] 210 mg/dL 74-106 [facility] Comment on above: MANAGEMENT OF PATIEN T CARE PER NURSING PROTOCOL Hematocrit Auto (Bld) [Volum e fraction]Ordered By: Dr. Tidwell on 12-02-2022 Hematocrit (Bld) [Volume fraction] 34.1 % 40-54 [facility] Laboratory - Chemistry and C hemistry - challengeOrdered By: Dr. Tidwell on 12-02-2022 ALP [Catalytic activity/Vol] 52 U/L 45-117 [facility] ALT [Catalytic activity/Vol] 19 U/L 16-61 [facility] CO2 [Moles/Vol] 25.0 mmol/L 21.0-32.0 [facility] Globulin (S) [Mass/Vol] 3.5 g/dL 2.2-4.2 [facility] Urea nitrogen/Creatinine [Mass ratio] 9.2 mg/mg 10-20 [facility] Laboratory - Chemistry and C hemistry - challengeOrdered By: Taras Santamaria on 12-02-2022 Lipase [Catalytic activity/Vol] 482 U/L 73-393 [facility] Laboratory - Hematology and Cell countsOrdered By: Dr. Tidwell on 12-02-2022 Erythrocyte distribution width (RBC) [Entitic vol] 41.1 fL 35.1-43.9 [facility] Erythrocyte distribution width (RBC) [Ratio] 12.3 % 11.6-14.6 [facility] Immature granulocytes/100 WBC (Bld) 0.300 % 0.0-0.9 [facility] Comment on above: IG% - Immature Granu locytes (promyelocytes, myelocytes and metamyelocytes) > 1% indicates that a LEFT SHIFT is Present. MCH (RBC) [Entitic mass] 32.1 pg 27.0-32.0 [facility] Nucleated RBC/100 WBC (Bld) [Ratio] 0 % 0-5 [facility] MCHC Auto (RBC) [Mass/Vol]Or dered By: Dr. Tidwell on 12-02-2022 MCHC (RBC) [Mass/Vol] 34.9 g/dL 32-36 [facility] No Panel InformationOrdered By: Dr. Tidwell on 12-02-2022 Estimated Creatinine Clearance Calc 96.73 ml/min [facility] Estimated GFR (MDRD) Amer 116 mL/min >60 [facility] Comment on above: GFR Calc Estimated GFR (MDRD) Non-Af Amer 96 mL/min >60 [facility] Comment on above: Non- GFR Calc 32.1 pg 27.0-32.0 [facility] 12.3 % 11.6-14.6 [facility] 41.1 fl 35.1-43.9 [facility] 0.300 % 0.0-0.9 [facility] 0 % 0-5 [facility] 96 mL/min >60 [facility] 116 mL/min >60 [facility] 96.73 ml/min [facility] 9.2 RATIO 10-20 [facility] 3.5 g/dL 2.2-4.2 [facility] 52 U/L 45-117 [facility] 19 U/L 16-61 [facility] 25.0 mmol/L 21.0-32.0 [facility] No Panel InformationOrdered By: Taras Santamaria on 12-02-2022 482 U/L 73-393 [facility] Platelets bldOrdered By: Dr. Tidwell on 12-02-2022 Platelets (Bld) [#/Vol] 154 10*3/uL 150-450 [facility] Serum or plasma C reactive p rotein measurement (mass/volume)Ordered By: Taras Santamaria on 12-02-2022 CRP [Mass/Vol] 12.50 mg/L 0.0-3.0 [facility] Comment on above: C-Reactive Protein ( CRP) provides useful information for thediagnosis, therapy and monitoring of inflammatory processesand associated diseases. For the evaluation of Relative Riskfor Cardiovascular Disease, a High Sensitivity CRP (HSCRP)should be ordered. Serum or plasma albumin mc urement (mass/volume)Ordered By: Dr. Tidwell on 12-02-2022 Albumin [Mass/Vol] 3.4 g/dL 3.2-5.0 [facility] Serum or plasma albumin/glob ulin mass ratioOrdered By: Dr. Tidwell on 12-02-2022 Albumin/Globulin [Mass ratio] 1.0 {ratio} 0.9-2.4 [facility] Serum or plasma calcium mc urement (mass/volume)Ordered By: Dr. Tidwell on 12-02-2022 Calcium [Mass/Vol] 8.4 mg/dL 8.5-10.1 [facility] Serum or plasma creatinine m easurement (mass/volume)Ordered By: Dr. Tidwell on 12-02-2022 Creatinine [Mass/Vol] 0.87 mg/dL 0.70-1.30 [facility] Comment on above: The validity of the calculated GFR & GFRAA in patients over 70 years has not been determined. Clinical correlation is essential. Serum or plasma urea nitroge n measurement (mass/volume)Ordered By: Dr. Tidwell on 12-02-2022 Urea nitrogen [Mass/Vol] 8 mg/dL 7-18 [facility] Thin prep Papanicolaou smear with manual screeningOrdered By: Dr. Tidwell on 12-02-2022 Thin prep Papanicolaou smear with manual screening 11 U/L 15-37 [facility] Thin prep Papanicolaou smear with manual screening 7 5-15 [facility] No Panel InformationOrdered By: Dr. Mora on 11-29-2022 Ethyl Alcohol Level < 3.0 mg/dL [facility] Comment on above: The serum:whole bloo d ethanol ratio is approximately 1.14and varies slightly with hematocrit. Medical Alcohol reference interval and critical value innon-tolerant individuals; 50 - 100 Impairment 100 Intoxication 100 - 250 Severe Poisoning 250 - 400 Deep/possible fatal coma < 3.0 mg/dL [facility] Absolute lymphocyte countOrd ered By: Dr. Mora on 11-28-2022 Lymphocytes Auto (Unsp spec) [#/Vol] 2.22 10*3/uL 0.83-4.51 [facility] Basophil percentageOrdered B y: Dr. Pedraza on 11-28-2022 Basophil percentage 3.3 mg/dL 2.5-4.9 [facility] Basophil percentageOrdered B y: Dr. Mora on 11-28-2022 Basophils/100 WBC (Bld) 0.4 % 0-1 [facility] Bilirubin [Mass/Vol] 0.80 mg/dL 0.20-1.00 [facility] Comment on above: For patients on eltr ombopag therapy, use of Dimension [place] TBIL is not recommended. Chloride [Moles/Vol] 100 mmol/L 98-107 [facility] Eosinophils/100 WBC (Bld) 0.6 % 0-5 [facility] Glucose [Mass/Vol] 223 mg/dL 74-106 [facility] Comment on above: Glucose result great er than or equal to 200 mg/dLsuggests DIABETES MELLITUS per A.D.A. criteria. Neutrophils (Bld) [#/Vol] 12.4 10*3/uL 2.0-7.7 [facility] Neutrophils/100 WBC (Bld) 78.1 % 47-70 [facility] Potassium [Moles/Vol] 3.5 mmol/L 3.5-5.1 [facility] Protein [Mass/Vol] 8.3 g/dL 6.4-8.2 [facility] Sodium [Moles/Vol] 134 mmol/L 136-145 [facility] WBC (Bld) [#/Vol] 15.9 10*3/uL 4.4-11.0 [facility] Blood erythrocytes count (nu mber/volume)Ordered By: Dr. Mora on 11-28-2022 RBC (Bld) [#/Vol] 4.64 10*6/uL 4.6-6.2 [facility] Blood hemoglobin measurement (mass/volume)Ordered By: Dr. Mora on 11-28-2022 Hemoglobin (Bld) [Mass/Vol] 14.9 g/dL 13.0-16.5 [facility] Blood lymphocytes/100 leukoc ytesOrdered By: Dr. Mora on 11-28-2022 Lymphocytes/100 WBC (Bld) 14.0 % 19-41 [facility] Blood monocytes/100 leukocyt esOrdered By: Dr. Mora on 11-28-2022 Monocytes/100 WBC (Bld) 6.5 % 0-10 [facility] Blood platelet mean volumeOr dered By: Dr. Mora on 11-28-2022 Platelet mean volume (Bld) [Entitic vol] 9.4 fL 6.2-12.0 [facility] Determination of erythrocyte mean corpuscular volume (MCV)Ordered By: Dr. Mora on 11-28-2022 MCV (RBC) [Entitic vol] 90.7 fL 80-94 [facility] Hematocrit Auto (Bld) [Volum e fraction]Ordered By: Dr. Mora on 11-28-2022 Hematocrit (Bld) [Volume fraction] 42.1 % 40-54 [facility] - Chemistry and C hemistry - challengeOrdered By: Dr. Mora on 11-28-2022 ALP [Catalytic activity/Vol] 71 U/L 45-117 [facility] ALT [Catalytic activity/Vol] 20 U/L 16-61 [facility] CO2 [Moles/Vol] 26.0 mmol/L 21.0-32.0 [facility] Globulin (S) [Mass/Vol] 4.0 g/dL 2.2-4.2 [facility] Lipase [Catalytic activity/Vol] 2513 U/L 73-393 [facility] Urea nitrogen/Creatinine [Mass ratio] 12.8 mg/mg 10-20 [facility] Laboratory - Chemistry and C hemistry - challengeOrdered By: Dr. Pedraza on 11-28-2022 Magnesium [Mass/Vol] 1.6 mg/dL 1.6-2.6 [facility] Laboratory - Hematology and Cell countsOrdered By: Dr. Mora on 11-28-2022 Erythrocyte distribution width (RBC) [Entitic vol] 39.1 fL 35.1-43.9 [facility] Erythrocyte distribution width (RBC) [Ratio] 11.8 % 11.6-14.6 [facility] Immature granulocytes/100 WBC (Bld) 0.400 % 0.0-0.9 [facility] Comment on above: IG% - Immature Granu locytes (promyelocytes, myelocytes and metamyelocytes) > 1% indicates that a LEFT SHIFT is Present. MCH (RBC) [Entitic mass] 32.1 pg 27.0-32.0 [facility] Nucleated RBC/100 WBC (Bld) [Ratio] 0.1 % 0-5 [facility] MCHC Auto (RBC) [Mass/Vol]Or dered By: Dr. Mora on 11-28-2022 MCHC (RBC) [Mass/Vol] 35.4 g/dL 32-36 [facility] No Panel InformationOrdered By: Dr. Mora on 11-28-2022 Estimated Creatinine Clearance Calc 71.93 ml/min [facility] Estimated GFR (MDRD) Amer 82 mL/min >60 [facility] Comment on above: GFR Calc Estimated GFR (MDRD) Non-Af Amer 68 mL/min >60 [facility] Comment on above: Non- GFR Calc No Panel InformationOrdered By: Dr. Pedraza on 11-28-2022 1.6 mg/dL 1.6-2.6 [facility] Platelets bldOrdered By: Dr. Mora on 11-28-2022 Platelets (Bld) [#/Vol] 225 10*3/uL 150-450 [facility] Serum or plasma albumin mc urement (mass/volume)Ordered By: Dr. Mora on 11-28-2022 Albumin [Mass/Vol] 4.3 g/dL 3.2-5.0 [facility] Serum or plasma albumin/glob ulin mass ratioOrdered By: Dr. Mora on 11-28-2022 Albumin/Globulin [Mass ratio] 1.1 {ratio} 0.9-2.4 [facility] Serum or plasma calcium mc urement (mass/volume)Ordered By: Dr. Mora on 11-28-2022 Calcium [Mass/Vol] 9.9 mg/dL 8.5-10.1 [facility] Serum or plasma creatinine m easurement (mass/volume)Ordered By: Dr. Mora on 11-28-2022 Creatinine [Mass/Vol] 1.17 mg/dL 0.70-1.30 [facility] Comment on above: The validity of the calculated GFR & GFRAA in patients over 70 years has not been determined. Clinical correlation is essential. Serum or plasma urea nitroge n measurement (mass/volume)Ordered By: Dr. Mora on 11-28-2022 Urea nitrogen [Mass/Vol] 15 mg/dL 7-18 [facility] Thin prep Papanicolaou smear with manual screeningOrdered By: Dr. Mora on 11-28-2022 Thin prep Papanicolaou smear with manual screening 13 U/L 15-37 [facility] Thin prep Papanicolaou smear with manual screening 8 5-15 [facility] Absolute lymphocyte countOrd ered By: Dr. Mora on 11-09-2022 Lymphocytes Auto (Unsp spec) [#/Vol] 2.61 10*3/uL 0.83-4.51 [facility] Basophil percentageOrdered B y: Dr. Mora on 11-09-2022 Basophil percentage 346 mg/dL 74-106 [facility] Basophil percentage 8.1 g/dL 6.4-8.2 [facility] Basophil percentage 0.70 mg/dL 0.20-1.00 [facility] Basophil percentage 139 mmol/L 136-145 [facility] Basophil percentage 4.0 mmol/L 3.5-5.1 [facility] Basophil percentage 104 mmol/L 98-107 [facility] Basophils (Bld) [#/Vol] 12.0 10*3/uL 4.4-11.0 [facility] Basophils (Bld) [#/Vol] 8.4 10*3/uL 2.0-7.7 [facility] Basophils/100 WBC (Bld) 0.5 % 0-1 [facility] Basophils/100 WBC (Bld) 70.1 % 47-70 [facility] Basophils/100 WBC (Bld) 1.1 % 0-5 [facility] Bilirubin [Mass/Vol] 0.70 mg/dL 0.20-1.00 [facility] Comment on above: For patients on eltr ombopag therapy, use of Dimension [place] TBIL is not recommended. Chloride [Moles/Vol] 104 mmol/L 98-107 [facility] Eosinophils/100 WBC (Bld) 1.1 % 0-5 [facility] Glucose [Mass/Vol] 346 mg/dL 74-106 [facility] Comment on above: Glucose result great er than or equal to 200 mg/dLsuggests DIABETES MELLITUS per A.D.A. criteria. Neutrophils (Bld) [#/Vol] 8.4 10*3/uL 2.0-7.7 [facility] Neutrophils/100 WBC (Bld) 70.1 % 47-70 [facility] Potassium [Moles/Vol] 4.0 mmol/L 3.5-5.1 [facility] Protein [Mass/Vol] 8.1 g/dL 6.4-8.2 [facility] Sodium [Moles/Vol] 139 mmol/L 136-145 [facility] WBC (Bld) [#/Vol] 12.0 10*3/uL 4.4-11.0 [facility] Blood erythrocytes count (nu mber/volume)Ordered By: Dr. Mora on 11-09-2022 RBC (Bld) [#/Vol] 4.40 10*6/uL 4.6-6.2 [facility] Blood hemoglobin measurement (mass/volume)Ordered By: Dr. Mora on 11-09-2022 Hemoglobin (Bld) [Mass/Vol] 13.8 g/dL 13.0-16.5 [facility] Blood lymphocytes/100 leukoc ytesOrdered By: Dr. Mora on 11-09-2022 Lymphocytes/100 WBC (Bld) 21.8 % 19-41 [facility] Blood monocytes/100 leukocyt esOrdered By: Dr. Mora on 11-09-2022 Monocytes/100 WBC (Bld) 6.2 % 0-10 [facility] Blood platelet mean volumeOr dered By: Dr. Mora on 11-09-2022 Platelet mean volume (Bld) [Entitic vol] 9.8 fL 6.2-12.0 [facility] Determination of erythrocyte mean corpuscular volume (MCV)Ordered By: Dr. Mora on 11-09-2022 MCV (RBC) [Entitic vol] 94.3 fL 80-94 [facility] Hematocrit Auto (Bld) [Volum e fraction]Ordered By: Dr. Mora on 11-09-2022 Hematocrit (Bld) [Volume fraction] 41.5 % 40-54 [facility] Laboratory - Chemistry and C hemistry - challengeOrdered By: Dr. Mora on 11-09-2022 ALP [Catalytic activity/Vol] 69 U/L 45-117 [facility] ALT [Catalytic activity/Vol] 18 U/L 16-61 [facility] CO2 [Moles/Vol] 26.0 mmol/L 21.0-32.0 [facility] Globulin (S) [Mass/Vol] 3.7 g/dL 2.2-4.2 [facility] Lipase [Catalytic activity/Vol] 525 U/L 73-393 [facility] Magnesium [Mass/Vol] 2.1 mg/dL 1.6-2.6 [facility] Urea nitrogen/Creatinine [Mass ratio] 14.4 mg/mg 10-20 [facility] Laboratory - Hematology and Cell countsOrdered By: Dr. Mora on 11-09-2022 Erythrocyte distribution width (RBC) [Entitic vol] 42.9 fL 35.1-43.9 [facility] Erythrocyte distribution width (RBC) [Ratio] 12.4 % 11.6-14.6 [facility] Immature granulocytes/100 WBC (Bld) 0.300 % 0.0-0.9 [facility] Comment on above: IG% - Immature Granu locytes (promyelocytes, myelocytes and metamyelocytes) > 1% indicates that a LEFT SHIFT is Present. MCH (RBC) [Entitic mass] 31.4 pg 27.0-32.0 [facility] Nucleated RBC/100 WBC (Bld) [Ratio] 0 % 0[facility]5 [facility] [Mass/Vol]Or dered By: Dr. oMra on 11-09-2022 MCHC (RBC) [Mass/Vol] 33.3 g/dL 32-36 [facility] No Panel InformationOrdered By: Dr. Mora on 11-09-2022 Estimated Creatinine Clearance Calc 63.75 ml/min [facility] Estimated GFR (MDRD) Amer 72 mL/min >60 [facility] Comment on above: GFR Calc Estimated GFR (MDRD) Non-Af Amer 59 mL/min >60 [facility] Comment on above: Non- GFR Calc 31.4 pg 27.0-32.0 [facility] 12.4 % 11.6-14.6 [facility] 42.9 fl 35.1-43.9 [facility] 0.300 % 0.0-0.9 [facility] 0 % 0-5 [facility] 59 mL/min >60 [facility] 72 mL/min >60 [facility] 63.75 ml/min [facility] 14.4 RATIO 10-20 [facility] 3.7 g/dL 2.2-4.2 [facility] 525 U/L 73-393 [facility] 69 U/L 45-117 [facility] 18 U/L 16-61 [facility] 2.1 mg/dL 1.6-2.6 [facility] 26.0 mmol/L 21.0-32.0 [facility] Platelets bldOrdered By: Dr. Mora on 11-09-2022 Platelets (Bld) [#/Vol] 204 10*3/uL 150-450 [facility] Serum or plasma albumin mc urement (mass/volume)Ordered By: Dr. Mora on 11-09-2022 Albumin [Mass/Vol] 4.4 g/dL 3.2-5.0 [facility] Serum or plasma albumin/glob ulin mass ratioOrdered By: Dr. Mora on 11-09-2022 Albumin/Globulin [Mass ratio] 1.2 {ratio} 0.9-2.4 [facility] Serum or plasma calcium mc urement (mass/volume)Ordered By: Dr. Mora on 11-09-2022 Calcium [Mass/Vol] 9.4 mg/dL 8.5-10.1 [facility] Serum or plasma creatinine m easurement (mass/volume)Ordered By: Dr. Mora on 11-09-2022 Creatinine [Mass/Vol] 1.32 mg/dL 0.70-1.30 [facility] Comment on above: The validity of the calculated GFR & GFRAA in patients over 70 years has not been determined. Clinical correlation is essential. Serum or plasma urea nitroge n measurement (mass/volume)Ordered By: Dr. Mora on 11-09-2022 Urea nitrogen [Mass/Vol] 19 mg/dL 7-18 [facility] Thin prep Papanicolaou smear with manual screeningOrdered By: Dr. Mora on 11-09-2022 Thin prep Papanicolaou smear with manual screening 13 U/L 15-37 [facility] Thin prep Papanicolaou smear with manual screening 9 5-15 [facility] Absolute lymphocyte countOrd ered By: Dr. Harrell on 10-27-2022 Lymphocytes Auto (Unsp spec) [#/Vol] 2.93 10*3/uL 0.83-4.51 [facility] Basophil percentageOrdered B y: Dr. Harrell on 10-27-2022 Basophil percentage 153 mg/dL 74-106 [facility] Basophil percentage 7.0 g/dL 6.4-8.2 [facility] Basophil percentage 1.00 mg/dL 0.20-1.00 [facility] Basophil percentage 139 mmol/L 136-145 [facility] Basophil percentage 3.7 mmol/L 3.5-5.1 [facility] Basophil percentage 109 mmol/L 98-107 [facility] Basophils (Bld) [#/Vol] 10.5 10*3/uL 4.4-11.0 [facility] Basophils (Bld) [#/Vol] 6.5 10*3/uL 2.0-7.7 [facility] Basophils/100 WBC (Bld) 0.3 % 0-1 [facility] Basophils/100 WBC (Bld) 61.5 % 47-70 [facility] Basophils/100 WBC (Bld) 1.3 % 0-5 [facility] Bilirubin [Mass/Vol] 1.00 mg/dL 0.20-1.00 [facility] Comment on above: For patients on eltr ombopag therapy, use of Dimension [place] TBIL is not recommended. Chloride [Moles/Vol] 109 mmol/L 98-107 [facility] Eosinophils/100 WBC (Bld) 1.3 % 0-5 [facility] Glucose [Mass/Vol] 153 mg/dL 74-106 [facility] Comment on above: Fasting Glucose resu lt greater than or equal to 126 mg/dL suggests DIABETES MELLITUS per A.D.A. criteria. Neutrophils (Bld) [#/Vol] 6.5 10*3/uL 2.0-7.7 [facility] Neutrophils/100 WBC (Bld) 61.5 % 47-70 [facility] Potassium [Moles/Vol] 3.7 mmol/L 3.5-5.1 [facility] Protein [Mass/Vol] 7.0 g/dL 6.4-8.2 [facility] Sodium [Moles/Vol] 139 mmol/L 136-145 [facility] WBC (Bld) [#/Vol] 10.5 10*3/uL 4.4-11.0 [facility] Blood erythrocytes count (nu mber/volume)Ordered By: Dr. Harrell on 10-27-2022 RBC (Bld) [#/Vol] 3.71 10*6/uL 4.6-6.2 [facility] Blood hemoglobin measurement (mass/volume)Ordered By: Dr. Harrell on 10-27-2022 Hemoglobin (Bld) [Mass/Vol] 11.9 g/dL 13.0-16.5 [facility] Blood lymphocytes/100 leukoc ytesOrdered By: Dr. Harrell on 10-27-2022 Lymphocytes/100 WBC (Bld) 27.8 % 19-41 [facility] Blood monocytes/100 leukocyt esOrdered By: Dr. Harrell on 10-27-2022 Monocytes/100 WBC (Bld) 8.8 % 0-10 [facility] Blood platelet mean volumeOr dered By: Dr. Harrell on 10-27-2022 Platelet mean volume (Bld) [Entitic vol] 9.5 fL 6.2-12.0 [facility] Determination of erythrocyte mean corpuscular volume (MCV)Ordered By: Dr. Harrell on 10-27-2022 MCV (RBC) [Entitic vol] 94.6 fL 80-94 [facility] Glucose Glucometer (BldC) [M ass/Vol]Ordered By: Dr. Harrell on 10-27-2022 Glucose [Mass/Vol] 176 mg/dL 74-106 [facility] Comment on above: MANAGEMENT OF PATIEN T CARE PER NURSING PROTOCOL Hematocrit Auto (Bld) [Volum e fraction]Ordered By: Dr. Harrell on 10-27-2022 Hematocrit (Bld) [Volume fraction] 35.1 % 40-54 [facility] Laboratory - Chemistry and C hemistry - challengeOrdered By: Dr. Harrell on 10-27-2022 ALP [Catalytic activity/Vol] 58 U/L 45-117 [facility] ALT [Catalytic activity/Vol] 16 U/L 16-61 [facility] CO2 [Moles/Vol] 22.0 mmol/L 21.0-32.0 [facility] Globulin (S) [Mass/Vol] 3.4 g/dL 2.2-4.2 [facility] Urea nitrogen/Creatinine [Mass ratio] 9.2 mg/mg 10-20 [facility] Laboratory - Hematology and Cell countsOrdered By: Dr. Harrell on 10-27-2022 Erythrocyte distribution width (RBC) [Entitic vol] 44.3 fL 35.1-43.9 [facility] Erythrocyte distribution width (RBC) [Ratio] 12.8 % 11.6-14.6 [facility] Immature granulocytes/100 WBC (Bld) 0.300 % 0.0-0.9 [facility] Comment on above: IG% - Immature Granu locytes (promyelocytes, myelocytes and metamyelocytes) > 1% indicates that a LEFT SHIFT is Present. MCH (RBC) [Entitic mass] 32.1 pg 27.0-32.0 [facility] Nucleated RBC/100 WBC (Bld) [Ratio] 0 % 0-5 [facility] ([facility]) [Mass/Vol]Or dered By: Dr. Harrell on 10-27-2022 MCHC (RBC) [Mass/Vol] 33.9 g/dL 32-36 [facility] No Panel InformationOrdered By: Dr. Harrell on 10-27-2022 Estimated Creatinine Clearance Calc 96.73 ml/min [facility] Estimated GFR (MDRD) Amer 117 mL/min >60 [facility] Comment on above: GFR Calc Estimated GFR (MDRD) Non-Af Amer 97 mL/min >60 [facility] Comment on above: Non- GFR Calc 32.1 pg 27.0-32.0 [facility] 12.8 % 11.6-14.6 [facility] 44.3 fl 35.1-43.9 [facility] 0.300 % 0.0-0.9 [facility] 0 % 0-5 [facility] 97 mL/min >60 [facility] 117 mL/min >60 [facility] 96.73 ml/min [facility] 9.2 RATIO 10-20 [facility] 3.4 g/dL 2.2-4.2 [facility] 58 U/L 45-117 [facility] 16 U/L 16-61 [facility] 22.0 mmol/L 21.0-32.0 [facility] Platelets bldOrdered By: Dr. Harrell on 10-27-2022 Platelets (Bld) [#/Vol] 156 10*3/uL 150-450 [facility] Serum or plasma albumin mc urement (mass/volume)Ordered By: Dr. Harrell on 10-27-2022 Albumin [Mass/Vol] 3.6 g/dL 3.2-5.0 [facility] Serum or plasma albumin/glob ulin mass ratioOrdered By: Dr. Harrell on 10-27-2022 Albumin/Globulin [Mass ratio] 1.1 {ratio} 0.9-2.4 [facility] Serum or plasma calcium mc urement (mass/volume)Ordered By: Dr. Harrell on 10-27-2022 Calcium [Mass/Vol] 8.5 mg/dL 8.5-10.1 [facility] Serum or plasma creatinine m easurement (mass/volume)Ordered By: Dr. Harrell on 10-27-2022 Creatinine [Mass/Vol] 0.87 mg/dL 0.70-1.30 [facility] Comment on above: The validity of the calculated GFR & GFRAA in patients over 70 years has not been determined. Clinical correlation is essential. Serum or plasma urea nitroge n measurement (mass/volume)Ordered By: Dr. Harrell on 10-27-2022 Urea nitrogen [Mass/Vol] 8 mg/dL 7-18 [facility] Thin prep Papanicolaou smear with manual screeningOrdered By: Dr. Harrell on 10-27-2022 Thin prep Papanicolaou smear with manual screening 13 U/L 15-37 [facility] Thin prep Papanicolaou smear with manual screening 8 5-15 [facility] No Panel InformationOrdered By: Dr. Arteaga on 10-26-2022 Ethyl Alcohol Level < 3.0 mg/dL [facility] Comment on above: The serum:whole bloo d ethanol ratio is approximately 1.14and varies slightly with hematocrit. Medical Alcohol reference interval and critical value innon-tolerant individuals; 50 - 100 Impairment 100 Intoxication 100 - 250 Severe Poisoning 250 - 400 Deep/possible fatal coma < 3.0 mg/dL [facility] Absolute lymphocyte countOrd ered By: ED PROVIDER on 10-25-2022 Lymphocytes Auto (Unsp spec) [#/Vol] 2.83 10*3/uL 0.83-4.51 [facility] Basophil percentageOrdered B y: ED PROVIDER on 10-25-2022 Basophil percentage 0-5 SEEN /hpf 0-5 [facility] Basophils/100 WBC (Bld) 0.4 % 0-1 [facility] Chloride [Moles/Vol] 104 mmol/L 98-107 [facility] Eosinophils/100 WBC (Bld) 1.1 % 0-5 [facility] Glucose [Mass/Vol] 177 mg/dL 74-106 [facility] Comment on above: Fasting Glucose resu lt greater than or equal to 126 mg/dL suggests DIABETES MELLITUS per A.D.A. criteria. Neutrophils (Bld) [#/Vol] 11.5 10*3/uL 2.0-7.7 [facility] Neutrophils/100 WBC (Bld) 73.5 % 47-70 [facility] Potassium [Moles/Vol] 3.7 mmol/L 3.5-5.1 [facility] Sodium [Moles/Vol] 139 mmol/L 136-145 [facility] WBC (Bld) [#/Vol] 15.6 10*3/uL 4.4-11.0 [facility] Basophil percentageOrdered B y: Dr. Arteaga on 10-25-2022 Bilirubin [Mass/Vol] 0.60 mg/dL 0.20-1.00 [facility] Comment on above: For patients on eltr ombopag therapy, use of Dimension [place] TBIL is not recommended. Protein [Mass/Vol] 8.3 g/dL 6.4-8.2 [facility] Bilirubin Test strip Ql (U)O rdered By: ED PROVIDER on 10-25-2022 Bilirubin Ql (U) Negative Negative [facility] Blood erythrocytes count (nu mber/volume)Ordered By: ED PROVIDER on 10-25-2022 RBC (Bld) [#/Vol] 4.48 10*6/uL 4.6-6.2 [facility] Blood hemoglobin measurement (mass/volume)Ordered By: ED PROVIDER on 10-25-2022 Hemoglobin (Bld) [Mass/Vol] 14.1 g/dL 13.0-16.5 [facility] Blood lymphocytes/100 leukoc ytesOrdered By: ED PROVIDER on 10-25-2022 Lymphocytes/100 WBC (Bld) 18.1 % 19-41 [facility] Blood monocytes/100 leukocyt esOrdered By: ED PROVIDER on 10-25-2022 Monocytes/100 WBC (Bld) 6.5 % 0-10 [facility] Blood platelet mean volumeOr dered By: ED PROVIDER on 10-25-2022 Platelet mean volume (Bld) [Entitic vol] 9.7 fL 6.2-12.0 [facility] Determination of erythrocyte mean corpuscular volume (MCV)Ordered By: ED PROVIDER on 10-25-2022 MCV (RBC) [Entitic vol] 93.8 fL 80-94 [facility] Direct bilirubinOrdered By: Dr. Arteaga on 10-25-2022 Bilirubin.direct [Mass/Vol] 0.22 mg/dL 0.00-0.30 [facility] Hematocrit Auto (Bld) [Volum e fraction]Ordered By: ED PROVIDER on 10-25-2022 Hematocrit (Bld) [Volume fraction] 42.0 % 40-54 [facility] Ketones Test strip Ql (U)Ord ered By: ED PROVIDER on 10-25-2022 Ketones Ql (U) Negative Negative [facility] Laboratory - Chemistry and C hemistry - challengeOrdered By: Dr. Arteaga on 10-25-2022 ALP [Catalytic activity/Vol] 68 U/L 45-117 [facility] ALT [Catalytic activity/Vol] 20 U/L 16-61 [facility] Globulin (S) [Mass/Vol] 3.9 g/dL 2.2-4.2 [facility] Lipase [Catalytic activity/Vol] 930 U/L 73-393 [facility] - Chemistry and C hemistry - challengeOrdered By: ED PROVIDER on 10-25-2022 CO2 [Moles/Vol] 26.0 mmol/L 21.0-32.0 [facility] Urea nitrogen/Creatinine [Mass ratio] 19.5 mg/mg 10-20 [facility] Laboratory - Hematology and Cell countsOrdered By: ED PROVIDER on 10-25-2022 Erythrocyte distribution width (RBC) [Entitic vol] 43.3 fL 35.1-43.9 [facility] Erythrocyte distribution width (RBC) [Ratio] 12.6 % 11.6-14.6 [facility] Immature granulocytes/100 WBC (Bld) 0.400 % 0.0-0.9 [facility] Comment on above: IG% - Immature Granu locytes (promyelocytes, myelocytes and metamyelocytes) > 1% indicates that a LEFT SHIFT is Present. MCH (RBC) [Entitic mass] 31.5 pg 27.0-32.0 [facility] Nucleated RBC/100 WBC (Bld) [Ratio] 0 % 0-5 [facility] MCHC Auto (RBC) [Mass/Vol]Or dered By: ED PROVIDER on 10-25-2022 MCHC (RBC) [Mass/Vol] 33.6 g/dL 32-36 [facility] Mucus LM Ql (Urine sed)Order ed By: ED PROVIDER on 10-25-2022 Mucus Ql (Urine sed) 0 SEEN /hpf [facility] Nitrite Test strip Ql (U)Ord ered By: ED PROVIDER on 10-25-2022 Nitrite Ql (U) Negative Negative [facility] No Panel InformationOrdered By: ED PROVIDER on 10-25-2022 Estimated Creatinine Clearance Calc 74.47 ml/min [facility] Estimated GFR (MDRD) Amer 86 mL/min >60 [facility] Comment on above: GFR Calc Estimated GFR (MDRD) Non-Af Amer 71 mL/min >60 [facility] Comment on above: Non- GFR Calc No Panel InformationOrdered By: Dr. Arteaga on 10-25-2022 930 U/L 73-393 [facility] Platelets bldOrdered By: ED PROVIDER on 10-25-2022 Platelets (Bld) [#/Vol] 211 10*3/uL 150-450 [facility] Protein Test strip Ql (U)Ord ered By: ED PROVIDER on 10-25-2022 Protein Ql (U) 100 mg/dl Negative [facility] Serum or plasma albumin mc urement (mass/volume)Ordered By: Dr. Arteaga on 10-25-2022 Albumin [Mass/Vol] 4.4 g/dL 3.2-5.0 [facility] Serum or plasma calcium mc urement (mass/volume)Ordered By: ED PROVIDER on 10-25-2022 Calcium [Mass/Vol] 9.7 mg/dL 8.5-10.1 [facility] Serum or plasma creatinine m easurement (mass/volume)Ordered By: ED PROVIDER on 10-25-2022 Creatinine [Mass/Vol] 1.13 mg/dL 0.70-1.30 [facility] Comment on above: The validity of the calculated GFR & GFRAA in patients over 70 years has not been determined. Clinical correlation is essential. Serum or plasma urea nitroge n measurement (mass/volume)Ordered By: ED PROVIDER on 10-25-2022 Urea nitrogen [Mass/Vol] 22 mg/dL 7-18 [facility] Squamous epithelial cells de tection in urine sediment by light microscopyOrdered By: ED PROVIDER on 10-25-2022 Epithelial cells.squamous LM Ql (Urine sed) 0-5 SEEN /hpf 0-5 [facility] Thin prep Papanicolaou smear with manual screeningOrdered By: Dr. Arteaga on 10-25-2022 Thin prep Papanicolaou smear with manual screening 12 U/L 15-37 [facility] Thin prep Papanicolaou smear with manual screeningOrdered By: ED PROVIDER on 10-25-2022 Thin prep Papanicolaou smear with manual screening 9 5-15 [facility] Urine blood detectionOrdered By: ED PROVIDER on 10-25-2022 RBC Ql (U) Negative Negative [facility] RBC Ql (U) 0-5 SEEN /hpf 0-5 [facility] Urine clarityOrdered By: ED PROVIDER on 10-25-2022 Clarity (U) Clear Clear [facility] Urine color determinationOrd ered By: ED PROVIDER on 10-25-2022 Color (U) Yellow Yellow [facility] Urine glucose detectionOrder ed By: ED PROVIDER on 10-25-2022 Glucose Ql (U) 50 mg/dl Normal [facility] Urine leukocyte esterase det ection by dipstickOrdered By: ED PROVIDER on 10-25-2022 Leukocyte esterase Test strip Ql (U) Negative Negative [facility] Urine pHOrdered By: ED PROVI MARION on 10-25-2022 pH (U) 6.0 [pH] 5.0 - 8.0 [facility] Urine sediment bacteria coun t by microscopy (number/high power field)Ordered By: ED PROVIDER on 10-25-2022 Bacteria LM.HPF (Urine sed) [#/Area] 0 /[HPF] None Seen [facility] Urine specific gravity measu rementOrdered By: ED PROVIDER on 10-25-2022 Specific gravity (U) [Rel density] 1.020 1.002-1.03 0 [facility] Urobilinogen Auto test strip Ql (U)Ordered By: ED PROVIDER on 10-25-2022 Urobilinogen Ql (U) 1 mg/dl Normal [facility] Absolute lymphocyte countOrd ered By: Dr. Araujo on 09-08-2022 Lymphocytes Auto (Unsp spec) [#/Vol] 2.68 10*3/uL 0.83-4.51 [facility] Basophil percentageOrdered B y: Dr. Araujo on 09-08-2022 Basophil percentage 112 mg/dL 74-106 [facility] Basophil percentage 7.2 g/dL 6.4-8.2 [facility] Basophil percentage 0.80 mg/dL 0.20-1.00 [facility] Basophil percentage 135 mmol/L 136-145 [facility] Basophil percentage 3.6 mmol/L 3.5-5.1 [facility] Basophil percentage 106 mmol/L 98-107 [facility] Basophils (Bld) [#/Vol] 9.9 10*3/uL 4.4-11.0 [facility] Basophils (Bld) [#/Vol] 6.3 10*3/uL 2.0-7.7 [facility] Basophils/100 WBC (Bld) 0.4 % 0-1 [facility] Basophils/100 WBC (Bld) 63.3 % 47-70 [facility] Basophils/100 WBC (Bld) 1.2 % 0-5 [facility] Bilirubin [Mass/Vol] 0.80 mg/dL 0.20-1.00 [facility] Comment on above: For patients on eltr ombopag therapy, use of Dimension [place] TBIL is not recommended. Chloride [Moles/Vol] 106 mmol/L 98-107 [facility] Eosinophils/100 WBC (Bld) 1.2 % 0-5 [facility] Glucose [Mass/Vol] 112 mg/dL 74-106 [facility] Comment on above: Fasting Glucose resu lt from 100 to 125 mg/dL suggests IMPAIRED HOMEOSTASIS per A.D.A. criteria. Neutrophils (Bld) [#/Vol] 6.3 10*3/uL 2.0-7.7 [facility] Neutrophils/100 WBC (Bld) 63.3 % 47-70 [facility] Potassium [Moles/Vol] 3.6 mmol/L 3.5-5.1 [facility] Protein [Mass/Vol] 7.2 g/dL 6.4-8.2 [facility] Sodium [Moles/Vol] 135 mmol/L 136-145 [facility] WBC (Bld) [#/Vol] 9.9 10*3/uL 4.4-11.0 [facility] Blood erythrocytes count (nu mber/volume)Ordered By: Dr. Araujo on 09-08-2022 RBC (Bld) [#/Vol] 3.87 10*6/uL 4.6-6.2 [facility] Blood hemoglobin measurement (mass/volume)Ordered By: Dr. Araujo on 09-08-2022 Hemoglobin (Bld) [Mass/Vol] 12.2 g/dL 13.0-16.5 [facility] Blood lymphocytes/100 leukoc ytesOrdered By: Dr. Araujo on 09-08-2022 Lymphocytes/100 WBC (Bld) 27.0 % 19-41 [facility] Blood monocytes/100 leukocyt esOrdered By: Dr. Araujo on 09-08-2022 Monocytes/100 WBC (Bld) 7.8 % 0-10 [facility] Blood platelet mean volumeOr dered By: Dr. Araujo on 09-08-2022 Platelet mean volume (Bld) [Entitic vol] 10.0 fL 6.2-12.0 [facility] Determination of erythrocyte mean corpuscular volume (MCV)Ordered By: Dr. Araujo on 09-08-2022 MCV (RBC) [Entitic vol] 94.6 fL 80-94 [facility] Glucose Glucometer (BldC) [M ass/Vol]Ordered By: Dr. Araujo on 09-08-2022 Glucose [Mass/Vol] 191 mg/dL 74-106 [facility] Comment on above: MANAGEMENT OF PATIEN T CARE PER NURSING PROTOCOL Hematocrit Auto (Bld) [Volum e fraction]Ordered By: Dr. Araujo on 09-08-2022 Hematocrit (Bld) [Volume fraction] 36.6 % 40-54 [facility] Laboratory - Chemistry and C hemistry - challengeOrdered By: Dr. Araujo on 09-08-2022 ALP [Catalytic activity/Vol] 55 U/L 45-117 [facility] ALT [Catalytic activity/Vol] 16 U/L 16-61 [facility] CO2 [Moles/Vol] 22.0 mmol/L 21.0-32.0 [facility] Globulin (S) [Mass/Vol] 3.7 g/dL 2.2-4.2 [facility] Urea nitrogen/Creatinine [Mass ratio] 6.1 mg/mg 10-20 [facility] Laboratory - Hematology and Cell countsOrdered By: Dr. Araujo on 09-08-2022 Erythrocyte distribution width (RBC) [Entitic vol] 43.5 fL 35.1-43.9 [facility] Erythrocyte distribution width (RBC) [Ratio] 12.6 % 11.6-14.6 [facility] Immature granulocytes/100 WBC (Bld) 0.300 % 0.0-0.9 [facility] Comment on above: IG% - Immature Granu locytes (promyelocytes, myelocytes and metamyelocytes) > 1% indicates that a LEFT SHIFT is Present. MCH (RBC) [Entitic mass] 31.5 pg 27.0-32.0 [facility] Nucleated RBC/100 WBC (Bld) [Ratio] 0 % 0-5 [facility] MCHC Auto (RBC) [Mass/Vol]Or dered By: Dr. Araujo on 09-08-2022 MCHC (RBC) [Mass/Vol] 33.3 g/dL 32-36 [facility] No Panel InformationOrdered By: Dr. Araujo on 09-08-2022 Estimated Creatinine Clearance Calc 102.63 ml/min [facility] Estimated GFR (MDRD) Amer 124 mL/min >60 [facility] Comment on above: GFR Calc Estimated GFR (MDRD) Non-Af Amer 102 mL/min >60 [facility] Comment on above: Non- GFR Calc 31.5 pg 27.0-32.0 [facility] 12.6 % 11.6-14.6 [facility] 43.5 fl 35.1-43.9 [facility] 0.300 % 0.0-0.9 [facility] 0 % 0-5 [facility] 102 mL/min >60 [facility] 124 mL/min >60 [facility] 102.63 ml/min [facility] 6.1 RATIO 10- [facility] 3.7 g/dL 2.2-4.2 [facility] 55 U/L 45-117 [facility] 16 U/L 16-61 [facility] 22.0 mmol/L 21.0-32.0 [facility] Platelets bldOrdered By: Dr. Araujo on 09-08-2022 Platelets (Bld) [#/Vol] 153 10*3/uL 150-450 [facility] Serum or plasma albumin mc urement (mass/volume)Ordered By: Dr. Araujo on 09-08-2022 Albumin [Mass/Vol] 3.5 g/dL 3.2-5.0 [facility] Serum or plasma albumin/glob ulin mass ratioOrdered By: Dr. Araujo on 09-08-2022 Albumin/Globulin [Mass ratio] 0.9 {ratio} 0.9-2.4 [facility] Serum or plasma calcium mc urement (mass/volume)Ordered By: Dr. Araujo on 09-08-2022 Calcium [Mass/Vol] 8.4 mg/dL 8.5-10.1 [facility] Serum or plasma creatinine m easurement (mass/volume)Ordered By: Dr. Araujo on 09-08-2022 Creatinine [Mass/Vol] 0.82 mg/dL 0.70-1.30 [facility] Comment on above: The validity of the calculated GFR & GFRAA in patients over 70 years has not been determined. Clinical correlation is essential. Serum or plasma urea nitroge n measurement (mass/volume)Ordered By: Dr. Araujo on 09-08-2022 Urea nitrogen [Mass/Vol] 5 mg/dL 7-18 [facility] Thin prep Papanicolaou smear with manual screeningOrdered By: Dr. Araujo on 09-08-2022 Thin prep Papanicolaou smear with manual screening 12 U/L 15-37 [facility] Thin prep Papanicolaou smear with manual screening 7 5-15 [facility] Whole blood hemoglobin A1c/t otal hemoglobin ratio (mass fraction)Ordered By: Dr. Araujo on 09-07-2022 HbA1c (Bld) [Mass fraction] 6.8 % 3.8-5.6 [facility] Comment on above: Normal < 5.7 % Predi abetic 5.7 - 6.4 % Diabetic >or= 6.5 % Please note range changes. Absolute lymphocyte counton 09-06-2022 Lymphocytes Auto (Unsp spec) [#/Vol] 1.99 10*3/uL 0.83-4.51 [facility] Work Phone: Basophil percentageOrdered B y: Dr. Araujo on 09-06-2022 Basophil percentage 2.9 mg/dL 2.5-4.9 [facility] Basophil percentageon 2021 Basophils/100 WBC (Bld) 0.6 % 0-1 [facility] Work Phone: Bilirubin [Mass/Vol] 1.30 mg/dL 0.20-1.00 [facility] Work Phone: Comment on above: For patients on eltr ombopag therapy, use of Dimension [place] TBIL is not recommended. Chloride [Moles/Vol] 97 mmol/L 98-107 [facility] Work Phone: Eosinophils/100 WBC (Bld) 0.5 % 0-5 [facility] Work Phone: Glucose [Mass/Vol] 216 mg/dL 74-106 [facility] Work Phone: Comment on above: Glucose result great er than or equal to 200 mg/dLsuggests DIABETES MELLITUS per A.D.A. criteria. Neutrophils (Bld) [#/Vol] 9.2 10*3/uL 2.0-7.7 [facility] Work Phone: [phone] Neutrophils/100 WBC (Bld) 75.9 % 47-70 [facility] Work Phone: Potassium [Moles/Vol] 3.6 mmol/L 3.5-5.1 [facility] Work [facility]: Protein [Mass/Vol] 8.5 g/dL 6.4-8.2 [facility] Work Phone: Sodium [Moles/Vol] 133 mmol/L 136-145 [facility] Work Phone: WBC (Bld) [#/Vol] 12.1 10*3/uL 4.4-11.0 [facility] Work Phone: Basophil percentageOrdered B y: Dr. Gandhi on 09-06-2022 Basophil percentage 0 SEEN /hpf 0-5 [facility] Bilirubin Test strip Ql (U)O rdered By: Dr. Gandhi on 09-06-2022 Bilirubin Ql (U) Negative Negative [facility] Blood erythrocytes count (nu mber/volume)on 09-06-2022 RBC (Bld) [#/Vol] 4.71 10*6/uL 4.6-6.2 [facility] Work Phone: Blood hemoglobin measurement (mass/volume)on 09-06-2022 Hemoglobin (Bld) [Mass/Vol] 15.0 g/dL 13.0-16.5 [facility] Work Phone: Blood lymphocytes/100 leukoc yteson 09-06-2022 Lymphocytes/100 WBC (Bld) 16.5 % 19-41 [facility] Work Phone: Blood monocytes/100 leukocyt eson 09-06-2022 Monocytes/100 WBC (Bld) 6.2 % 0-10 [facility] Work Phone: Blood platelet mean volumeon 09-06-2022 Platelet mean volume (Bld) [Entitic vol] 9.7 fL 6.2-12.0 [facility] Work Phone: Determination of erythrocyte mean corpuscular volume (MCV)on 09-06-2022 MCV (RBC) [Entitic vol] 91.3 fL 80-94 [facility] Work Phone: Hematocrit Auto (Bld) [Volum e fraction]on 09-06-2022 Hematocrit (Bld) [Volume fraction] 43.0 % 40-54 [facility] Work Phone: Ketones Test strip Ql (U)Ord ered By: Dr. Gandhi on 09-06-2022 Ketones Ql (U) Negative Negative [facility] Laboratory - Chemistry and C hemistry - challengeOrdered By: Dr. Araujo on 09-06-2022 Amylase [Catalytic activity/Vol] 48 U/L 15- [facility] Magnesium [Mass/Vol] 2.0 mg/dL 1.6-2.6 [facility] Laboratory - Chemistry and C hemistry - challengeon 09-06-2022 ALP [Catalytic activity/Vol] 67 U/L 45-117 [facility] Work Phone: ALT [Catalytic activity/Vol] 22 U/L 16-61 [facility] Work Phone: [phone] CO2 [Moles/Vol] 24.0 mmol/L 21.0-32.0 [facility] Work Phone: Globulin (S) [Mass/Vol] 4.1 g/dL 2.2-4.2 [facility] Work Phone: Urea nitrogen/Creatinine [Mass ratio] 7.4 mg/mg 10-20 [facility] Work Phone: Laboratory - Chemistry and C hemistry - challengeOrdered By: Dr. Gandhi on 09-06-2022 Lipase [Catalytic activity/Vol] 1507 U/L 73-393 [facility] Laboratory - Hematology and Cell countson 09-06-2022 Erythrocyte distribution width (RBC) [Entitic vol] 42.5 fL 35.1-43.9 [facility] Work Phone: Erythrocyte distribution width (RBC) [Ratio] 12.5 % 11.6-14.6 [facility] Work Phone: Immature granulocytes/100 WBC (Bld) 0.300 % 0.0-0.9 [facility] Work Phone: Comment on above: IG% - Immature Granu locytes (promyelocytes, myelocytes and metamyelocytes) > 1% indicates that a LEFT SHIFT is Present. MCH (RBC) [Entitic mass] 31.8 pg 27.0-32.0 [facility] Work Phone: Nucleated RBC/100 WBC (Bld) [Ratio] 0 % 0-5 [facility] Work Phone: MCHC Auto (RBC) [Mass/Vol]on 09-06-2022 MCHC (RBC) [Mass/Vol] 34.9 g/dL 32-36 [facility] Work Phone: Mucus LM Ql (Urine sed)Order ed By: Dr. Gandhi on 09-06-2022 Mucus Ql (Urine sed) 0 SEEN /hpf [facility] Nitrite Test strip Ql (U)Ord ered By: Dr. Gandhi on 09-06-2022 Nitrite Ql (U) Negative Negative [facility] No Panel InformationOrdered By: Dr. Araujo on 09-06-2022 Ethyl Alcohol Level < 3.0 mg/dL [facility] Comment on above: The serum:whole bloo d ethanol ratio is approximately 1.14and varies slightly with hematocrit. Medical Alcohol reference interval and critical value innon-tolerant individuals; 50 - 100 Impairment 100 Intoxication 100 - 250 Severe Poisoning 250 - 400 Deep/possible fatal coma 48 U/L 15-85 [facility] 2.0 mg/dL 1.6-2.6 [facility] < 3.0 mg/dL [facility] No Panel Informationon 09-06 Estimated Creatinine Clearance Calc 56.48 ml/min [facility] Work Phone: Estimated GFR (MDRD) Amer 62 mL/min >60 [facility] Work Phone: Comment on above: GFR Calc Estimated GFR (MDRD) Non-Af Amer 52 mL/min >60 [facility] Work Phone: Comment on above: Non- GFR Calc No Panel InformationOrdered By: Dr. Gandhi on 09-06-2022 1507 U/L 73-393 [facility] Platelets bldon 09-06-2022 Platelets (Bld) [#/Vol] 200 10*3/uL 150-450 [facility] Work Phone: Protein Test strip Ql (U)Ord ered By: Dr. Gandhi on 09-06-2022 Protein Ql (U) 100 mg/dl Negative [facility] Serum or plasma albumin mc urement (mass/volume)on 09-06-2022 Albumin [Mass/Vol] 4.4 g/dL 3.2-5.0 [facility] Work Phone: Serum or plasma albumin/glob ulin mass ratioon 09-06-2022 Albumin/Globulin [Mass ratio] 1.1 {ratio} 0.9-2.4 [facility] Work Phone: Serum or plasma calcium mc urement (mass/volume)on 09-06-2022 Calcium [Mass/Vol] 9.5 mg/dL 8.5-10.1 [facility] Work Phone: Serum or plasma creatinine m easurement (mass/volume)on 09-06-2022 Creatinine [Mass/Vol] 1.49 mg/dL 0.70-1.30 [facility] Work Phone: Comment on above: The validity of the calculated GFR & GFRAA in patients over 70 years has not been determined. Clinical correlation is essential. Serum or plasma folate measu rement (mass/volume)Ordered By: Dr. Araujo on 09-06-2022 Folate [Mass/Vol] 41.90 ng/mL 3.1-55.4 [facility] Serum or plasma urea nitroge n measurement (mass/volume)on 09-06-2022 Urea nitrogen [Mass/Vol] 11 mg/dL 7-18 [facility] Work Phone: Squamous epithelial cells de tection in urine sediment by light microscopyOrdered By: Dr. Gandhi on 09-06-2022 Epithelial cells.squamous LM Ql (Urine sed) 0 SEEN /hpf 0-5 [facility] Thin prep Papanicolaou smear with manual screeningon 09-06-2022 Thin prep Papanicolaou smear with manual screening 16 U/L 15-37 [facility] Work Phone: Thin prep Papanicolaou smear with manual screening 12 5-15 [facility] Work Phone: Urine blood detectionOrdered By: Dr. Gandhi on 09-06-2022 RBC Ql (U) 10 /ul Negative [facility] RBC Ql (U) 0 SEEN /hpf 0-5 [facility] Urine clarityOrdered By: Dr. Gandhi on 09-06-2022 Clarity (U) Clear Clear [facility] Urine color determinationOrd ered By: Dr. Gandhi on 09-06-2022 Color (U) Yellow Yellow [facility] Urine glucose detectionOrder ed By: Dr. Gandhi on 09-06-2022 Glucose Ql (U) Normal mg/dl Normal [facility] Urine leukocyte esterase det ection by dipstickOrdered By: Dr. Gandhi on 09-06-2022 Leukocyte esterase Test strip Ql (U) 25 /ul Negative [facility] Urine pHOrdered By: Dr. Sajan ferrer on 09-06-2022 pH (U) 6.0 [pH] 5.0 - 8.0 [facility] Urine sediment bacteria coun t by microscopy (number/high power field)Ordered By: Dr. Gandhi on 09-06-2022 Bacteria LM.HPF (Urine sed) [#/Area] 0 /[HPF] None Seen [facility] Urine specific gravity measu rementOrdered By: Dr. Gandhi on 09-06-2022 Specific gravity (U) [Rel density] 1.010 1.002-1.03 0 [facility] Urobilinogen Auto test strip Ql (U)Ordered By: Dr. 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 Environmental Attorney: JACQUE Transcribe Date/Time: Aug 19 2022 5:10P Dictated by : GEOFFREY CARROLL MD This examination was interpreted and the report reviewed and electronically signed by: GEOFFREY CARROLL MD on Aug 19 2022 5:12PM [facility] DIVISION OF RADIOLOGY * * *Final Report* [...] soft tissue swelling. DIVISION OF RADIOLOGY [facility] * * *Final Report* * [...] in the left hip as described above. Environmental Attorney: JACQUE Transcribe Date/Time: Aug 19 2022 5:10P Dictated by : GEOFFREY CARROLL MD This examination was interpreted and the report reviewed and electronically signed by: GEOFFREY CARROLL MD on Aug 19 2022 5:12PM EST [facility] Radiology Study observation (narrative) [facility] XR Pelvis and Hip - left AP and Lateral frogOrdered By: [facility] Provider on 08-19-2022 [facility] Albumin Elph [Mass/Vol]Order ed By: Dr. Burnett on 08-08-2022 Albumin [Mass/Vol] 4.3 g/dL 2.9-4.4 [facility] Basophil percentageOrdered B y: Dr. Burnett on 08-08-2022 Ammonia (P) [Moles/Vol] 63.0 umol/L [facility] Basophil percentage Comment . [facility] Comment on above: No monoclonality det ected. Interpretation of serum or p lasma protein pattern by immunofixation (narrative resultOrdered By: Dr. Burnett on 08-08-2022 Protein Fractions Immunofixation Jose [Interp] See comment [facility] Comment on above: NOT OBSERVED No Panel InformationOrdered By: Dr. Burnett on 08-08-2022 Addendum Document Comment . [facility] Comment on above: Protein electrophore sis scan will follow via computer,mail, or certified peer specialist delivery. Free Lambda Light Chains, Quant 22.1 mg/L 5.7-26.3 [facility] Levetiracetam (Keppra) Level 10.6 ug/mL 10.0-40.0 [facility] Comment on above: Performed at: [facility] [address] [id number] Director: Andre Doty PhD, Phone: [phone] at: - Lab[address] [id number] Director: Fam Talbert MD, Phone: [phone] Serum [id number] measu rement by electrophoresisOrdered By: Dr. Burnett on 08-08-2022 Alpha 1 globulin Elph [Mass/Vol] 0.2 g/dL 0.0-0.4 [facility] Alpha 1 globulin Elph [Mass/Vol] 0.7 g/dL 0.4-1.0 [facility] Serum globulin measurement ( mass/volume)Ordered By: Dr. Burnett on 08-08-2022 Globulin (S) [Mass/Vol] 3.4 g/dL 2.2-3.9 [facility] Serum immunoglobulin kappa l ight chains/immunoglobulin lambda light chains mass ratioOrdered By: Dr. Burnett on 08-08-2022 Immunoglobulin light chains.kappa/Immunoglobu francoise light chains.lambda (S) [Mass ratio] 1.69 0.26-1.65 [facility] Serum or plasma IgA measurem ent (mass/volume)Ordered By: Dr. Burnett on 08-08-2022 IgA [Mass/Vol] 340 mg/dL 90-386 [facility] Serum or plasma IgG measurem ent (mass/volume)Ordered By: Dr. Burnett on 08-08-2022 IgG [Mass/Vol] 1154 mg/dL [phone] [facility] Serum or plasma IgM measurem ent (mass/volume)Ordered By: Dr. Burnett on 08-08-2022 IgM [Mass/Vol] 91 mg/dL 20-172 [facility] Serum or plasma beta globuli n measurement by electrophoresis (mass/volume)Ordered By: Dr. Burnett on 08-08-2022 Beta globulin Elph [Mass/Vol] 1.3 g/dL 0.7-1.3 [facility] Serum or plasma gamma globul in measurement by electrophoresis (mass/volume)Ordered By: Dr. Burnett on 08-08-2022 Gamma globulin Elph [Mass/Vol] 1.1 g/dL 0.4-1.8 [facility] Serum or plasma immunoelectr ophoresis interpretation (nominal result)Ordered By: Dr. Burnett on 08-08-2022 Interpretation IEP [Interp] Comment . [facility] Comment on above: No monoclonality det ected. Serum or plasma immunoglobul in kappa light chains measurement (mass/volume)Ordered By: Dr. Burnett on 08-08-2022 Immunoglobulin light chains.kappa [Mass/Vol] 37.3 mg/L 3.3-19.4 [facility] Thin prep Papanicolaou smear with manual screeningOrdered By: Dr. Burnett on 08-08-2022 Thin prep Papanicolaou smear with manual screening 1.3 0.7-1.7 [facility] Total protein bloodOrdered B y: Dr. Burnett on 08-08-2022 Protein [Mass/Vol] 7.7 g/dL 6.0-8.5 [facility] Absolute lymphocyte countOrd ered By: Dr. Cox on 07-18-2022 Lymphocytes Auto (Unsp spec) [#/Vol] 2.36 10*3/uL 0.83-4.51 [facility] Basophil percentageOrdered B y: Dr. Cox on 07-18-2022 Basophils/100 WBC (Bld) 0.5 % 0-1 [facility] Bilirubin [Mass/Vol] 0.60 mg/dL 0.20-1.00 [facility] Comment on above: For patients on eltr ombopag therapy, use of Dimension [place] TBIL is not recommended. Chloride [Moles/Vol] 106 mmol/L 98-107 [facility] Eosinophils/100 WBC (Bld) 2.3 % 0-5 [facility] Glucose [Mass/Vol] 162 mg/dL 74-106 [facility] Comment on above: Fasting Glucose resu lt greater than or equal to 126 mg/dL suggests DIABETES MELLITUS per A.D.A. criteria. Neutrophils (Bld) [#/Vol] 4.9 10*3/uL 2.0-7.7 [facility] Neutrophils/100 WBC (Bld) 59.8 % 47-70 [facility] Potassium [Moles/Vol] 4.1 mmol/L 3.5-5.1 [facility] Protein [Mass/Vol] 7.4 g/dL 6.4-8.2 [facility] Sodium [Moles/Vol] 137 mmol/L 136-145 [facility] WBC (Bld) [#/Vol] 8.2 10*3/uL 4.4-11.0 [facility] Blood erythrocytes count (nu mber/volume)Ordered By: Dr. Cox on 07-18-2022 RBC (Bld) [#/Vol] 4.04 10*6/uL 4.6-6.2 [facility] Blood hemoglobin measurement (mass/volume)Ordered By: Dr. Cox on 07-18-2022 Hemoglobin (Bld) [Mass/Vol] 12.7 g/dL 13.0-16.5 [facility] Blood lymphocytes/100 leukoc ytesOrdered By: Dr. Cox on 07-18-2022 Lymphocytes/100 WBC (Bld) 28.9 % 19-41 [facility] Blood monocytes/100 leukocyt esOrdered By: Dr. Cox on 07-18-2022 Monocytes/100 WBC (Bld) 8.1 % 0-10 [facility] Blood platelet mean volumeOr dered By: Dr. Cox on 07-18-2022 Platelet mean volume (Bld) [Entitic vol] 9.9 fL 6.2-12.0 [facility] Determination of erythrocyte mean corpuscular volume (MCV)Ordered By: Dr. Cox on 07-18-2022 MCV (RBC) [Entitic vol] 94.1 fL 80-94 [facility] Glucose Glucometer (BldC) [M ass/Vol]Ordered By: Dr. Carr on 07-18-2022 Glucose [Mass/Vol] 232 mg/dL 74-106 [facility] Comment on above: MANAGEMENT OF PATIEN T CARE PER NURSING PROTOCOL Hematocrit Auto (Bld) [Volum e fraction]Ordered By: Dr. Cox on 07-18-2022 Hematocrit (Bld) [Volume fraction] 38.0 % 40-54 [facility] Laboratory - Chemistry and C hemistry - challengeOrdered By: Dr. Cox on 07-18-2022 ALP [Catalytic activity/Vol] 60 U/L 45-117 [facility] ALT [Catalytic activity/Vol] 19 U/L 16-61 [facility] CO2 [Moles/Vol] 26.0 mmol/L 21.0-32.0 [facility] Globulin (S) [Mass/Vol] 3.8 g/dL 2.2-4.2 [facility] Magnesium [Mass/Vol] 1.8 mg/dL 1.6-2.6 [facility] Urea nitrogen/Creatinine [Mass ratio] 13.7 mg/mg 10-20 [facility] Laboratory - Hematology and Cell countsOrdered By: Dr. Cox on 07-18-2022 Erythrocyte distribution width (RBC) [Entitic vol] 43.8 fL 35.1-43.9 [facility] Erythrocyte distribution width (RBC) [Ratio] 12.7 % 11.6-14.6 [facility] Immature granulocytes/100 WBC (Bld) 0.400 % 0.0-0.9 [facility] Comment on above: IG% - Immature Granu locytes (promyelocytes, myelocytes and metamyelocytes) > 1% indicates that a LEFT SHIFT is Present. MCH (RBC) [Entitic mass] 31.4 pg 27.0-32.0 [facility] Nucleated RBC/100 WBC (Bld) [Ratio] 0 % 0-5 [facility] MCHC Auto (RBC) [Mass/Vol]Or dered By: Dr. Cox on 07-18-2022 MCHC (RBC) [Mass/Vol] 33.4 g/dL 32-36 [facility] No Panel InformationOrdered By: Dr. Cox on 07-18-2022 Estimated Creatinine Clearance Calc 82.50 ml/min [facility] Estimated GFR (MDRD) Amer 97 mL/min >60 [facility] Comment on above: GFR Calc Estimated GFR (MDRD) Non-Af Amer 80 mL/min >60 [facility] Comment on above: Non- GFR Calc Platelets bldOrdered By: Dr. Cox on 07-18-2022 Platelets (Bld) [#/Vol] 169 10*3/uL 150-450 [facility] Serum or plasma albumin mc urement (mass/volume)Ordered By: Dr. Cox on 07-18-2022 Albumin [Mass/Vol] 3.6 g/dL 3.2-5.0 [facility] Serum or plasma albumin/glob ulin mass ratioOrdered By: Dr. Cox on 07-18-2022 Albumin/Globulin [Mass ratio] 0.9 {ratio} 0.9-2.4 [facility] Serum or plasma calcium mc urement (mass/volume)Ordered By: Dr. Cox on 07-18-2022 Calcium [Mass/Vol] 9.3 mg/dL 8.5-10.1 [facility] Serum or plasma creatinine m easurement (mass/volume)Ordered By: Dr. Cox on 07-18-2022 Creatinine [Mass/Vol] 1.02 mg/dL 0.70-1.30 [facility] Comment on above: The validity of the calculated GFR & GFRAA in patients over 70 years has not been determined. Clinical correlation is essential. Serum or plasma urea nitroge n measurement (mass/volume)Ordered By: Dr. Cox on 07-18-2022 Urea nitrogen [Mass/Vol] 14 mg/dL 7-18 [facility] Thin prep Papanicolaou smear with manual screeningOrdered By: Dr. Cox on 07-18-2022 Thin prep Papanicolaou smear with manual screening 14 U/L 15-37 [facility] Thin prep Papanicolaou smear with manual screening 5 5-15 [facility] Laboratory - Chemistry and C hemistry - challengeOrdered By: Dr. Cox on 07-14-2022 Sodium (U) [Moles/Vol] 24 mmol/L Not Establ. [facility] No Panel InformationOrdered By: Dr. Cox on 07-14-2022 Urine Potassium 6.0 mmol/L Not Establ. [facility] Thin prep Papanicolaou smear with manual screeningOrdered By: Dr. Cox on 07-14-2022 Thin prep Papanicolaou smear with manual screening 20 mmol/L Not Establ. [facility] Thin prep Papanicolaou smear with manual screening 270 mOsm/KG 275-295 [facility] Urine osmolality measurement Ordered By: Dr. Cox on 07-14-2022 Osmolality (U) [Osmolality] 148 mOsm/KG >50 [facility] Comment on above: Normal Urine Referen ce Ranges Random: 50 - 1200 mOsm/kg H20 depending on fluid intake Random: >850 mOsm/kg after 12 hour fluid restriction 24 hour: ~300 - 900 mOsm/kg H2O Absolute lymphocyte counton 07-13-2022 Lymphocytes Auto (Unsp spec) [#/Vol] 3.57 10*3/uL 0.83-4.51 [facility] Work Phone: Basophil percentageon 2021 Basophils/100 WBC (Bld) 0.5 % 0-1 [facility] Work Phone: Bilirubin [Mass/Vol] 0.40 mg/dL 0.20-1.00 [facility] Work Phone: Comment on above: For patients on eltr ombopag therapy, use of Dimension [place] TBIL is not recommended. Chloride [Moles/Vol] 100 mmol/L 98-107 [facility] Work Phone: Eosinophils/100 WBC (Bld) 2.2 % 0-5 [facility] Work Phone: [phone] Glucose [Mass/Vol] 242 mg/dL 74-106 [facility] Work Phone: Comment on above: Glucose result great er than or equal to 200 mg/dLsuggests DIABETES MELLITUS per A.D.A. criteria. Neutrophils (Bld) [#/Vol] 6.4 10*3/uL 2.0-7.7 [facility] Work Phone: Neutrophils/100 WBC (Bld) 58.1 % 47-70 [facility] Work Phone: Potassium [Moles/Vol] 3.4 mmol/L 3.5-5.1 [facility] Work Phone: Protein [Mass/Vol] 8.1 g/dL 6.4-8.2 [facility] Work Phone: Sodium [Moles/Vol] 134 mmol/L 136-145 [facility] Work Phone: WBC (Bld) [#/Vol] 11.1 10*3/uL 4.4-11.0 [facility] Work Phone: Blood erythrocytes count (nu mber/volume)on 07-13-2022 RBC (Bld) [#/Vol] 4.12 10*6/uL 4.6-6.2 [facility] Work Phone: Blood hemoglobin measurement (mass/volume)on 07-13-2022 Hemoglobin (Bld) [Mass/Vol] 13.2 g/dL 13.0-16.5 [facility] Work Phone: [phone] Blood lymphocytes/100 leukoc yteson 07-13-2022 Lymphocytes/100 WBC (Bld) 32.3 % 19-41 [facility] Work Phone: Blood monocytes/100 leukocyt eson 07-13-2022 Monocytes/100 WBC (Bld) 6.4 % 0-10 [facility] Work Phone: Blood platelet mean volumeon 07-13-2022 Platelet mean volume (Bld) [Entitic vol] 9.3 fL 6.2-12.0 [facility] Work Phone: Determination of erythrocyte mean corpuscular volume (MCV)on 07-13-2022 MCV (RBC) [Entitic vol] 91.0 fL 80-94 [facility] Work Phone: Direct bilirubinOrdered By: Phillip Aguiar on 07-13-2022 Bilirubin.direct [Mass/Vol] 0.14 mg/dL 0.00-0.30 [facility] Hematocrit Auto (Bld) [Volum e fraction]on 07-13-2022 Hematocrit (Bld) [Volume fraction] 37.5 % 40-54 [facility] Work Phone: Laboratory - Chemistry and C hemistry - challengeon 07-13-2022 ALP [Catalytic activity/Vol] 72 U/L 45-117 [facility] Work Phone: ALT [Catalytic activity/Vol] 21 U/L 16-61 [facility] Work Phone: CO2 [Moles/Vol] 22.0 mmol/L 21.0-32.0 [facility] Work Phone: Globulin (S) [Mass/Vol] 4.0 g/dL 2.2-4.2 [facility] Work Phone: Urea nitrogen/Creatinine [Mass ratio] 12.1 mg/mg 10-20 [facility] Work Phone: Laboratory - Chemistry and C hemistry - challengeOrdered By: Phillip Aguiar on 07-13-2022 Lipase [Catalytic activity/Vol] 828 U/L 73-393 [facility] Laboratory - Hematology and Cell countson 07-13-2022 Erythrocyte distribution width (RBC) [Entitic vol] 40.7 fL 35.1-43.9 [facility] Work Phone: Erythrocyte distribution width (RBC) [Ratio] 12.2 % 11.6-14.6 [facility] Work Phone: Immature granulocytes/100 WBC (Bld) 0.500 % 0.0-0.9 [facility] Work Phone: Comment on above: IG% - Immature Granu locytes (promyelocytes, myelocytes and metamyelocytes) > 1% indicates that a LEFT SHIFT is Present. MCH (RBC) [Entitic mass] 32.0 pg 27.0-32.0 [facility] Work Phone: Nucleated RBC/100 WBC (Bld) [Ratio] 0 % 0-5 [facility] Work Phone: MCHC Auto (RBC) [Mass/Vol]on 07-13-2022 MCHC (RBC) [Mass/Vol] 35.2 g/dL 32-36 [facility] Work Phone: No Panel Informationon 07-13 Estimated Creatinine Clearance Calc 92.48 ml/min [facility] Work Phone: Estimated GFR (MDRD) Amer 111 mL/min >60 [facility] Work Phone: Comment on above: GFR Calc Estimated GFR (MDRD) Non-Af Amer 92 mL/min >60 [facility] Work Phone: Comment on above: Non- GFR Calc Platelets bldon 07-13-2022 Platelets (Bld) [#/Vol] 214 10*3/uL 150-450 [facility] Work Phone: Serum or plasma albumin mc urement (mass/volume)on 07-13-2022 Albumin [Mass/Vol] 4.1 g/dL 3.2-5.0 [facility] Work Phone: Serum or plasma calcium mc urement (mass/volume)on 07-13-2022 Calcium [Mass/Vol] 9.7 mg/dL 8.5-10.1 [facility] Work Phone: Serum or plasma creatinine m easurement (mass/volume)on 07-13-2022 Creatinine [Mass/Vol] 0.91 mg/dL 0.70-1.30 [facility] Work Phone: Comment on above: The validity of the calculated GFR & GFRAA in patients over 70 years has not been determined. Clinical correlation is essential. Serum or plasma urea nitroge n measurement (mass/volume)on 07-13-2022 Urea nitrogen [Mass/Vol] 11 mg/dL 7-18 [facility] Work Phone: Thin prep Papanicolaou smear with manual screeningon 07-13-2022 Thin prep Papanicolaou smear with manual screening 8 U/L 15-37 [facility] Work Phone: Thin prep Papanicolaou smear with manual screening 12 5-15 [facility] Work Phone: Absolute lymphocyte countOrd ered By: Dr. Gandhi on 07-04-2022 Lymphocytes Auto (Unsp spec) [#/Vol] 2.83 10*3/uL 0.83-4.51 [facility] Basophil percentageOrdered B y: Dr. Gandhi on 07-04-2022 Basophil percentage 0-5 SEEN /hpf 0-5 [facility] Basophils/100 WBC (Bld) 0.5 % 0-1 [facility] Bilirubin [Mass/Vol] 0.80 mg/dL 0.20-1.00 [facility] Comment on above: For patients on eltr ombopag therapy, use of Dimension [place] TBIL is not recommended. Chloride [Moles/Vol] 98 mmol/L 98-107 [facility] Eosinophils/100 WBC (Bld) 0.8 % 0-5 [facility] Glucose [Mass/Vol] 152 mg/dL 74-106 [facility] Comment on above: Fasting Glucose resu lt greater than or equal to 126 mg/dL suggests DIABETES MELLITUS per A.D.A. criteria. Neutrophils (Bld) [#/Vol] 7.3 10*3/uL 2.0-7.7 [facility] Neutrophils/100 WBC (Bld) 66.2 % 47-70 [facility] Potassium [Moles/Vol] 3.5 mmol/L 3.5-5.1 [facility] Protein [Mass/Vol] 8.1 g/dL 6.4-8.2 [facility] Sodium [Moles/Vol] 135 mmol/L 136-145 [facility] WBC (Bld) [#/Vol] 11.1 10*3/uL 4.4-11.0 [facility] Bilirubin Test strip Ql (U)O rdered By: Dr. Gandhi on 07-04-2022 Bilirubin Ql (U) Negative Negative [facility] Blood erythrocytes count (nu mber/volume)Ordered By: Dr. Gandhi on 07-04-2022 RBC (Bld) [#/Vol] 4.19 10*6/uL 4.6-6.2 [facility] Blood hemoglobin measurement (mass/volume)Ordered By: Dr. Gandhi on 07-04-2022 Hemoglobin (Bld) [Mass/Vol] 13.8 g/dL 13.0-16.5 [facility] Blood lymphocytes/100 leukoc ytesOrdered By: Dr. Gandhi on 07-04-2022 Lymphocytes/100 WBC (Bld) 25.5 % 19-41 [facility] Blood monocytes/100 leukocyt esOrdered By: Dr. Gandhi on 07-04-2022 Monocytes/100 WBC (Bld) 6.7 % 0-10 [facility] Blood platelet mean volumeOr dered By: Dr. Gandhi on 07-04-2022 Platelet mean volume (Bld) [Entitic vol] 9.5 fL 6.2-12.0 [facility] Determination of erythrocyte mean corpuscular volume (MCV)Ordered By: Dr. Gandhi on 07-04-2022 MCV (RBC) [Entitic vol] 92.6 fL 80-94 [facility] Hematocrit Auto (Bld) [Volum e fraction]Ordered By: Dr. Gandhi on 07-04-2022 Hematocrit (Bld) [Volume fraction] 38.8 % 40-54 [facility] Ketones Test strip Ql (U)Ord ered By: Dr. Gandhi on 07-04-2022 Ketones Ql (U) 5 mg/dl Negative [facility] Laboratory - Chemistry and C hemistry - challengeOrdered By: Dr. Gandhi on 07-04-2022 ALP [Catalytic activity/Vol] 71 U/L 45-117 [facility] ALT [Catalytic activity/Vol] 20 U/L 16-61 [facility] CO2 [Moles/Vol] 27.0 mmol/L 21.0-32.0 [facility] Globulin (S) [Mass/Vol] 4.1 g/dL 2.2-4.2 [facility] Lipase [Catalytic activity/Vol] 227 U/L 73-393 [facility] Urea nitrogen/Creatinine [Mass ratio] 7.7 mg/mg 10-20 [facility] Laboratory - Hematology and Cell countsOrdered By: Dr. Gandhi on 07-04-2022 Erythrocyte distribution width (RBC) [Entitic vol] 41.3 fL 35.1-43.9 [facility] Erythrocyte distribution width (RBC) [Ratio] 12.1 % 11.6-14.6 [facility] Immature granulocytes/100 WBC (Bld) 0.300 % 0.0-0.9 [facility] Comment on above: IG% - Immature Granu locytes (promyelocytes, myelocytes and metamyelocytes) > 1% indicates that a LEFT SHIFT is Present. MCH (RBC) [Entitic mass] 32.9 pg 27.0-32.0 [facility] Nucleated RBC/100 WBC (Bld) [Ratio] 0 % 0-5 [facility] MCHC Auto (RBC) [Mass/Vol]Or dered By: Dr. Gandhi on 07-04-2022 MCHC (RBC) [Mass/Vol] 35.6 g/dL 32-36 [facility] Mucus LM Ql (Urine sed)Order ed By: Dr. Gandhi on 07-04-2022 Mucus Ql (Urine sed) 0 SEEN /hpf [facility] Nitrite Test strip Ql (U)Ord ered By: Dr. Gandhi on 07-04-2022 Nitrite Ql (U) Negative Negative [facility] No Panel InformationOrdered By: Dr. Gandhi on 07-04-2022 Estimated Creatinine Clearance Calc 58.85 ml/min [facility] Estimated GFR (MDRD) Amer 66 mL/min >60 [facility] Comment on above: GFR Calc Estimated GFR (MDRD) Non-Af Amer 54 mL/min >60 [facility] Comment on above: Non- GFR Calc Platelets bldOrdered By: Dr. Gandhi on 07-04-2022 Platelets (Bld) [#/Vol] 188 10*3/uL 150-450 [facility] Protein Test strip Ql (U)Ord ered By: Dr. Gandhi on 07-04-2022 Protein Ql (U) 30 mg/dl Negative [facility] Serum or plasma albumin mc urement (mass/volume)Ordered By: Dr. Gandhi on 07-04-2022 Albumin [Mass/Vol] 4.0 g/dL 3.2-5.0 [facility] Serum or plasma albumin/glob ulin mass ratioOrdered By: Dr. Gandhi on 07-04-2022 Albumin/Globulin [Mass ratio] 1.0 {ratio} 0.9-2.4 [facility] Serum or plasma calcium mc urement (mass/volume)Ordered By: Dr. Gandhi on 07-04-2022 Calcium [Mass/Vol] 9.2 mg/dL 8.5-10.1 [facility] Serum or plasma creatinine m easurement (mass/volume)Ordered By: Dr. Gandhi on 07-04-2022 Creatinine [Mass/Vol] 1.43 mg/dL 0.70-1.30 [facility] Comment on above: The validity of the calculated GFR & GFRAA in patients over 70 years has not been determined. Clinical correlation is essential. Serum or plasma urea nitroge n measurement (mass/volume)Ordered By: Dr. Gandhi on 07-04-2022 Urea nitrogen [Mass/Vol] 11 mg/dL 7-18 [facility] Squamous epithelial cells de tection in urine sediment by light microscopyOrdered By: Dr. Gandhi on 07-04-2022 Epithelial cells.squamous LM Ql (Urine sed) 0-5 SEEN /hpf 0-5 [facility] Thin prep Papanicolaou smear with manual screeningOrdered By: Dr. Gandhi on 07-04-2022 Thin prep Papanicolaou smear with manual screening 14 U/L 15-37 [facility] Thin prep Papanicolaou smear with manual screening 10 5-15 [facility] Urine blood detectionOrdered By: Dr. Gandhi on 07-04-2022 RBC Ql (U) Negative Negative [facility] RBC Ql (U) 0 SEEN /hpf 0-5 [facility] Urine clarityOrdered By: Dr. Gandhi on 07-04-2022 Clarity (U) Sl. Cloudy Clear [facility] Urine color determinationOrd ered By: Dr. Gandhi on 07-04-2022 Color (U) Yellow Yellow [facility] Urine glucose detectionOrder ed By: Dr. Gandhi on 07-04-2022 Glucose Ql (U) Normal mg/dl Normal [facility] Urine leukocyte esterase det ection by dipstickOrdered By: Dr. Gandhi on 07-04-2022 Leukocyte esterase Test strip Ql (U) 25 /ul Negative [facility] Urine pHOrdered By: Dr. Sajan ferrer on 07-04-2022 pH (U) 7.0 [pH] 5.0 - 8.0 [facility] Urine sediment bacteria coun t by microscopy (number/high power field)Ordered By: Dr. Gandhi on 07-04-2022 Bacteria LM.HPF (Urine sed) [#/Area] 2 /[HPF] None Seen [facility] Urine specific gravity measu rementOrdered By: Dr. Gandhi on 07-04-2022 Specific gravity (U) [Rel density] 1.010 1.002-1.03 0 [facility] Urobilinogen Auto test strip Ql (U)Ordered By: Dr. Gandhi on 07-04-2022 Urobilinogen Ql (U) 1 mg/dl Normal [facility] CNPNon 05-23-2022 CNPN Telephone ([facility]) ----- BRONSON WELLER ([id number]) 1965 M Date Time Provider Department 05/23/22 TRINI WILLIAMSON During your visit today, we recorded the following information about you: Eugene Duncan Cma 05/23/2022 10:26 AM Signed ----- Message from Trini Williamson DO sent at 05/22/2022 5:39 PM EDT ----- PSA is down Eugene Duncan Cma 05/23/2022 10:28 AM Signed Patient advised PSA is down. Patient agreed. Eugene Duncan Cma Allergies As of Date: 05/23/2022 Noted Allergy Reaction CYCLOBENZAPRINE 03/26/2021 9 - Itching LISINOPRIL 05/07/2013 7 - Swelling Comments: mouth and throat NARCOTICS (OPIOIDS - MORPHINE KELLY*11/27/2020 9 - Itching TRAMADOL 01/01/2016 9 - Itching VICODIN (HYDROCODONE-ACETAMINOPHE *05/07/2013 7 - Swelling Comments: mouth and throat Date Reviewed: 05/16/2022 Reviewed by: hRona Samayoa LPN - Fully Assessed Reason for [...] eyes [H47.233] 10/05/2021 Coronary artery disease involving [place] santana*09/25/2011 Posttraumatic stress disorder [F43.10] 03/10/2022 Lower urinary tract symptoms (LUTS) [R39.9] 10/15/2021 Encounter Status:Closed by GUZMAN EUGENE HIGHTOWER on 05/23/[address] [facility] Absolute lymphocyte counton 03-25-2022 Lymphocytes Auto (Unsp spec) [#/Vol] 3.72 10*3/uL 0.83-4.51 [facility] Work Phone: Atypical perinuclear antineu trophil cytoplasmic antibodies measurementon 03-25-2022 Neutrophil cytoplasmic Ab.perinuclear.atypical IF (S) [Titer] <1:20 titer Neg:<1:20 [facility] Work Phone: Comment on above: The atypical pANCA p attern has been observed in asignificant percentage of patients with ulcerative colitis,primary sclerosing cholangitis and autoimmune hepatitis. Basophil percentageon 2021 Ammonia (P) [Moles/Vol] 38.0 umol/L 11-32 [facility] Work Phone: Basophil percentage < 0.2 AI 0.0-0.9 [facility] Work Phone: Basophils/100 WBC (Bld) 0.5 % 0-1 [facility] Work Phone: Bilirubin [Mass/Vol] 0.90 mg/dL 0.20-1.00 [facility] Work Phone: Comment on above: For patients on eltr ombopag therapy, use of Dimension [place] TBIL is not recommended. Chloride [Moles/Vol] 104 mmol/L 98-107 [facility] Work Phone: Cholesterol [Mass/Vol] 138 mg/dL <200 [facility] Work Phone: Comment on above: <200 mg/dL Desirable 200-240 mg/dL Borderline >240 mg/dL High Risk Eosinophils/100 WBC (Bld) 0.6 % 0-5 [facility] Work Phone: Glucose [Mass/Vol] 81 mg/dL 74-106 [facility] Work Phone: Neutrophils (Bld) [#/Vol] 11.0 10*3/uL 2.0-7.7 [facility] Work Phone: Neutrophils/100 WBC (Bld) 68.9 % 47-70 [facility] Work Phone: Potassium [Moles/Vol] 3.2 mmol/L 3.5-5.1 [facility] Work Phone: Protein [Mass/Vol] 8.0 g/dL 6.4-8.2 [facility] Work Phone: Sodium [Moles/Vol] 138 mmol/L 136-145 [facility] Work Phone: Triglyceride [Mass/Vol] 107 mg/dL <199 [facility] Work Phone: Comment on above: The drugs N-Acetylcy steine and Metamizole may falsely depress this assay.Serum Triglycerides Reference Interval Normal <150 mg/dL Borderline high 150 - 199 mg/dL High 200 - 499 mg/dL Very High > or = 500 mg/dL WBC (Bld) [#/Vol] 16.0 10*3/uL 4.4-11.0 [facility] Work Phone: Blood erythrocytes count (nu mber/volume)on 03-25-2022 RBC (Bld) [#/Vol] 4.43 10*6/uL 4.6-6.2 [facility] Work Phone: Blood hemoglobin measurement (mass/volume)on 03-25-2022 Hemoglobin (Bld) [Mass/Vol] 13.8 g/dL 13.0-16.5 [facility] Work Phone: Blood lymphocytes/100 leukoc yteson 07-01-2022 Lymphocytes/100 WBC (Bld) 23.2 % 19-41 [facility] Work Phone: Blood monocytes/100 leukocyt eson 03-25-2022 Monocytes/100 WBC (Bld) 6.6 % 0-10 [facility] Work Phone: Blood platelet mean volumeon 03-25-2022 Platelet mean volume (Bld) [Entitic vol] 9.9 fL 6.2-12.0 [facility] Work Phone: Determination of erythrocyte mean corpuscular volume (MCV)on 03-25-2022 MCV (RBC) [Entitic vol] 92.1 fL 80-94 [facility] Work Phone: Erythrocyte sedimentation ra daysi 03-25-2022 ESR (Bld) [Velocity] 20 mm/h 0-20 [facility]: Hematocrit Auto (Bld) [Volum e fraction]on 03-25-2022 Hematocrit (Bld) [Volume fraction] 40.8 % 40-54 [facility] Work Phone: INR in Blood by Coagulation assayon 03-25-2022 INR Coag (Bld) [Relative time] 1.1 {INR} [facility] Work Phone: Laboratory - Chemistry and C hemistry - challengeon 03-25-2022 ALP [Catalytic activity/Vol] 59 U/L 45-117 [facility] Work Phone: ALT [Catalytic activity/Vol] 27 U/L 16-61 [facility] Work Phone: CO2 [Moles/Vol] 24.0 mmol/L 21.0-32.0 [facility] Work Phone: [phone] Globulin (S) [Mass/Vol] 3.5 g/dL 2.2-4.2 [facility] Work Phone: Lipase [Catalytic activity/Vol] 188 U/L 73-393 [facility] Work Phone: Urea nitrogen/Creatinine [Mass ratio] 19.1 mg/mg 10-20 [facility] Work Phone: Laboratory - Coagulationon 0 03-25-2022 PT Coag (PPP) [Time] 13.9 s 11.7-14.9 [facility] Work Phone: Laboratory - Hematology and Cell countson 03-25-2022 Erythrocyte distribution width (RBC) [Entitic vol] 43.1 fL 35.1-43.9 [facility] Work Phone: Erythrocyte distribution width (RBC) [Ratio] 12.7 % 11.6-14.6 [facility] Work Phone: Immature granulocytes/100 WBC (Bld) 0.200 % 0.0-0.9 [facility] Work Phone: Comment on above: IG% - Immature Granu locytes (promyelocytes, myelocytes and metamyelocytes) > 1% indicates that a LEFT SHIFT is Present. MCH (RBC) [Entitic mass] 31.2 pg 27.0-32.0 [facility] Work Phone: Nucleated RBC/100 WBC (Bld) [Ratio] 0 % 0-5 [facility] Work Phone: MCHC Auto (RBC) [Mass/Vol]on 03-25-2022 MCHC (RBC) [Mass/Vol] 33.8 g/dL 32-36 [facility] Work Phone: No Panel Informationon 03-25 Centromere B Antibody <0.2 AI 0.0-0.9 [facility] Work Phone: Ceruloplasmin 23.9 mg/dL 16.0-31.0 [facility] Work Phone: Estimated GFR (MDRD) Amer 89 mL/min >60 [facility] Work Phone: Comment on above: GFR Calc Estimated GFR (MDRD) Non-Af Amer 73 mL/min >60 [facility] Work Phone: Comment on above: Non- GFR Calc Haptoglobin 142 mg/dL 29-370 [facility] Work Phone: Comment on above: Performed at: - [facility] [address] [id number] Director: Andre Doty PhD, Phone: [phone] at: [facility] [address] [id number] Director: Fam Talbert MD, Phone: [phone] Immunoglobulin G4 75 mg/dL 2-96 [facility] Work Phone: [employer] Antibody <0.2 AI 0.0-0.9 [facility] Work Phone: Platelets bldon 03-25-2022 Platelets (Bld) [#/Vol] 199 10*3/uL 150-450 [facility] Work Phone: Serum DNA double strand anti body assay (units/volume)on 03-25-2022 DNA double strand Ab Qn (S) [IU]/mL 0-9 [facility] Work Phone: Comment on above: Negative <5 Equivoca l 5 - 9 Positive >9 Serum IgG subclass 1 measure ment (mass/volume)on 03-25-2022 IgG subclass 1 (S) [Mass/Vol] 649 mg/dL 248-810 [facility] Work Phone: Serum IgG subclass 2 measure ment (mass/volume)on 03-25-2022 IgG subclass 2 (S) [Mass/Vol] 291 mg/dL 130-555 [facility] Work Phone: Serum IgG subclass 3 measure ment (mass/volume)on 03-25-2022 IgG subclass 3 (S) [Mass/Vol] 36 mg/dL 15-102 [facility] Work Phone: Serum Christie-1 antibody assay (u nits/volume)on 03-25-2022 Christie-1 extractable nuclear Ab Qn (S) <0.2 AI 0.0-0.9 [facility] Work Phone: Serum Scl-70 extractable nuc lear antibody assay (units/volume)on 03-25-2022 SCL-70 extractable nuclear Ab Qn (S) <0.2 AI 0.0-0.9 [facility] Work Phone: Serum [place] extractable nucl ear antibody detectionon 03-25-2022 [place] extractable nuclear Ab Ql (S) <0.2 AI 0.0-0.9 [facility] Work Phone: Serum classic neutrophil cyt oplasmic antibody assay (units/volume)on 03-25-2022 Neutrophil cytoplasmic Ab.classic Qn (S) <1:20 titer Neg:<1:20 [facility] Work Phone: Serum mitochondria antibody detectionon 03-25-2022 Mitochondria Ab Ql (S) <20.0 Units 0.0-20.0 [facility] Work Phone: Comment on above: Negative 0.0 - 20.0 Equivocal 20.1 - 24.9 Positive >24.9Mitochondrial (M2) Antibodies are found in 90-96% ofpatients with primary biliary cirrhosis.Performed at: [facility] [id number] Director: Andre Doty PhD, Phone: [phone] Serum or plasma C reactive p rotein measurement (mass/volume)on 03-25-2022 CRP [Mass/Vol] 5.28 mg/L 0.0-3.0 [facility] Work Phone: Comment on above: C-Reactive Protein ( CRP) provides useful information for thediagnosis, therapy and monitoring of inflammatory processesand associated diseases. For the evaluation of Relative Riskfor Cardiovascular Disease, a High Sensitivity CRP (HSCRP)should be ordered. Serum or plasma IgG measurem ent (mass/volume)on 03-25-2022 IgG [Mass/Vol] 1152 mg/dL [id number] [facility] Work Phone: Serum or plasma actin IgG an tibody assay (units/volume)on 03-25-2022 Actin IgG Qn 8 Units 0-19 [facility] Work Phone: Comment on above: Negative 0 - 19 Weak positive 20 - 30 Moderate to strong positive >30 Actin Antibodies are found in 52-85% of patients with autoimmune hepatitis or chronic active hepatitis and in 22% of patients with primary biliary cirrhosis. Serum or plasma albumin mc urement (mass/volume)on 03-25-2022 Albumin [Mass/Vol] 4.5 g/dL 3.2-5.0 [facility] Work Phone: Serum or plasma albumin/glob ulin mass ratioon 03-25-2022 Albumin/Globulin [Mass ratio] 1.3 {ratio} 0.9-2.4 [facility] Work Phone: Serum or plasma angiotensin converting enzyme measurement (enzymatic activity/volume)on 03-25-2022 Angiotensin converting enzyme [Catalytic activity/Vol] 37 U/L 14-82 [facility] Work Phone: Serum or plasma calcium mc urement (mass/volume)on 03-25-2022 Calcium [Mass/Vol] 9.7 mg/dL 8.5-10.1 [facility] Work Phone: Serum or plasma cholesterol in HDL measurement (mass/volume)on 03-25-2022 Cholesterol in HDL [Mass/Vol] 49 mg/dL >40 [facility] Work Phone: Comment on above: The drugs N-Acetylcy steine and Metamizole may falsely depress this assay. Reference Range HDL <40 mg/dL Low HDL Cholesterol HDL >or= 60 mg/dL High HDL Cholesterol Serum or plasma cholesterol in VLDL measurement (mass/volume)on 03-25-2022 Cholesterol in VLDL [Mass/Vol] 21 mg/dL 5-40 [facility] Work Phone: Serum or plasma creatinine m easurement (mass/volume)on 03-25-2022 Creatinine [Mass/Vol] 1.10 mg/dL 0.70-1.30 [facility] Work Phone: Comment on above: The validity of the calculated GFR & GFRAA in patients over 70 years has not been determined. Clinical correlation is essential. Serum or plasma low density lipoprotein (LDL) cholesterol measurement (mass/volume)on 03-25-2022 Cholesterol in LDL [Mass/Vol] 68 mg/dL 0-130 [facility] Phone: Serum or plasma urea nitroge n measurement (mass/volume)on 03-25-2022 Urea nitrogen [Mass/Vol] 21 mg/dL 7-18 [facility] Work Phone: Serum perinuclear neutrophil cytoplasmic antibody titer by immunofluorescenceon 03-25-2022 Neutrophil cytoplasmic Ab.perinuclear IF (S) [Titer] <1:20 titer Neg:<1:20 [facility] Work Phone: Comment on above: The presence of posi tive fluorescence exhibiting P-ANCA orC-ANCA patterns alone is not specific for the diagnosis ofWegener's Granulomatosis (WG) or microscopic polyangiitis.Decisions about treatment should not be based solely onANCA IFA results. The [employer] Consensusrecommends follow up testing of positive sera with both NM-3 and MPO-ANCA enzyme immunoassays. As many as 5% serumsamples are positive only by EIA. Ref. AM J Clin [id number];[id number]. Thin prep Papanicolaou smear with manual screeningon 03-25-2022 Thin prep Papanicolaou smear with manual screening 14 U/L 15-37 [facility] Work Phone: Thin prep Papanicolaou smear with manual screening 10 5-15 [facility] Work Phone: Thin prep Papanicolaou smear with manual screening 141 U/L 87-241 [facility] Work Phone: Thin prep Papanicolaou smear with manual screening 100 ug/dL 69-132 [facility] Work Phone: Comment on above: Detection Limit = 5 Glucose Glucometer (BldC) [M ass/Vol]on 03-07-2022 Glucose [Mass/Vol] 283 mg/dL 74-106 [facility] Work Phone: Comment on above: MANAGEMENT OF PATIEN T CARE PER NURSING PROTOCOL Absolute lymphocyte counton 03-06-2022 Lymphocytes Auto (Unsp spec) [#/Vol] 3.50 10*3/uL 0.83-4.51 [facility] Work Phone: Basophil percentageon 2021 Basophils/100 WBC (Bld) 0.6 % 0-1 [facility] Work Phone: Bilirubin [Mass/Vol] 0.40 mg/dL 0.20-1.00 [facility] Work Phone: [phone] Comment on above: For patients on eltr ombopag therapy, use of Dimension [place] TBIL is not recommended. Chloride [Moles/Vol] 105 mmol/L 98-107 [facility] Work Phone: Eosinophils/100 WBC (Bld) 1.7 % 0-5 [facility] Work Phone: Glucose [Mass/Vol] 327 mg/dL 74-106 [facility] Work Phone: Comment on above: Glucose result great er than or equal to 200 mg/dLsuggests DIABETES MELLITUS per A.D.A. criteria. Lactate [Moles/Vol] 1.8 mmol/L 0.4-2.0 [facility] Work Phone: Neutrophils (Bld) [#/Vol] 5.8 10*3/uL 2.0-7.7 [facility] Work Phone: Neutrophils/100 WBC (Bld) 55.4 % 47-70 [facility] Work Phone: Potassium [Moles/Vol] 3.9 mmol/L 3.5-5.1 [facility] Work Phone: Comment on above: Slight Hemolysis, Re sult may be falsely increased. Protein [Mass/Vol] 7.9 g/dL 6.4-8.2 [facility] Work Phone: Sodium [Moles/Vol] 138 mmol/L 136-145 [facility] Work Phone: WBC (Bld) [#/Vol] 10.5 10*3/uL 4.4-11.0 [facility] Work Phone: Blood erythrocytes count (nu mber/volume)on 03-06-2022 RBC (Bld) [#/Vol] 4.28 10*6/uL 4.6-6.2 [facility]: Blood hemoglobin measurement (mass/volume)on 03-06-2022 Hemoglobin (Bld) [Mass/Vol] 13.5 g/dL 13.0-16.5 [facility] Work Phone: Blood lymphocytes/100 leukoc yteson 03-06-2022 Lymphocytes/100 WBC (Bld) 33.5 % 19-41 [facility] Work Phone: Blood monocytes/100 leukocyt eson 03-06-2022 Monocytes/100 WBC (Bld) 8.4 % 0-10 [facility] Work Phone: Blood platelet mean volumeon 03-06-2022 Platelet mean volume (Bld) [Entitic vol] 10.0 fL 6.2-12.0 [facility] Work Phone: Determination of erythrocyte mean corpuscular volume (MCV)on 03-06-2022 MCV (RBC) [Entitic vol] 93.2 fL 80-94 [facility] Work Phone: Hematocrit Auto (Bld) [Volum e fraction]on 03-06-2022 Hematocrit (Bld) [Volume fraction] 39.9 % 40-54 [facility] Work Phone: Laboratory - Chemistry and C hemistry - challengeon 03-06-2022 ALP [Catalytic activity/Vol] 79 U/L 45-117 [facility] Work Phone: ALT [Catalytic activity/Vol] 30 U/L 16-61 [facility] Work Phone: CO2 [Moles/Vol] 27.0 mmol/L 21.0-32.0 [facility] Work Phone: Globulin (S) [Mass/Vol] 3.8 g/dL 2.2-4.2 [facility] Work Phone: Lipase [Catalytic activity/Vol] 709 U/L 73-393 [facility] Work Phone: Urea nitrogen/Creatinine [Mass ratio] 12.8 mg/mg 10-20 [facility] Work Phone: Laboratory - Hematology and Cell countson 03-06-2022 Erythrocyte distribution width (RBC) [Entitic vol] 44.8 fL 35.1-43.9 [facility] Work Phone: Erythrocyte distribution width (RBC) [Ratio] 13.2 % 11.6-14.6 [facility] Work Phone: Immature granulocytes/100 WBC (Bld) 0.400 % 0.0-0.9 [facility] Work Phone: Comment on above: IG% - Immature Granu locytes (promyelocytes, myelocytes and metamyelocytes) > 1% indicates that a LEFT SHIFT is Present. MCH (RBC) [Entitic mass] 31.5 pg 27.0-32.0 [facility] Work Phone: Nucleated RBC/100 WBC (Bld) [Ratio] 0 % 0-5 [facility] Work Phone: MCHC Auto (RBC) [Mass/Vol]on 03-06-2022 MCHC (RBC) [Mass/Vol] 33.8 g/dL 32-36 [facility] Work Phone: No Panel Informationon 03-06 Estimated Creatinine Clearance Calc 60.40 ml/min [facility] Work Phone: Estimated GFR (MDRD) Amer 67 mL/min >60 [facility] Work Phone: Comment on above: GFR Calc Estimated GFR (MDRD) Non-Af Amer 55 mL/min >60 [facility] Work Phone: Comment on above: Non- GFR Calc Ethyl Alcohol Level < 3.0 mg/dL [facility] Work Phone: Comment on above: The serum:whole bloo d ethanol ratio is approximately 1.14and varies slightly with hematocrit. Medical Alcohol reference interval and critical value innon-tolerant individuals; 50 - 100 Impairment 100 Intoxication 100 - 250 Severe Poisoning 250 - 400 Deep/possible fatal coma Platelets bldon 03-06-2022 Platelets (Bld) [#/Vol] 213 10*3/uL 150-450 [facility] Work Phone: Serum or plasma albumin mc urement (mass/volume)on 03-06-2022 Albumin [Mass/Vol] 4.1 g/dL 3.2-5.0 [facility] Work Phone: Serum or plasma albumin/glob ulin mass ratioon 03-06-2022 Albumin/Globulin [Mass ratio] 1.1 {ratio} 0.9-2.4 [facility] Work Phone: Serum or plasma calcium mc urement (mass/volume)on 03-06-2022 Calcium [Mass/Vol] 9.6 mg/dL 8.5-10.1 [facility] Work Phone: Serum or plasma creatinine m easurement (mass/volume)on 03-06-2022 Creatinine [Mass/Vol] 1.41 mg/dL 0.70-1.30 [facility] Work Phone: Comment on above: The validity of the calculated GFR & GFRAA in patients over 70 years has not been determined. Clinical correlation is essential. Serum or plasma urea nitroge n measurement (mass/volume)on 03-06-2022 Urea nitrogen [Mass/Vol] 18 mg/dL 7-18 [facility] Work Phone: Thin prep Papanicolaou smear with manual screeningon 03-06-2022 Thin prep Papanicolaou smear with manual screening 25 U/L 15-37 [facility] Work Phone: Comment on above: Slight Hemolysis, Re sult may be falsely increased. Thin prep Papanicolaou smear with manual screening 6 5-15 [facility] Work Phone: Basophil percentageon 2021 Bilirubin [Mass/Vol] 0.80 mg/dL 0.20-1.00 [facility] Work Phone: Comment on above: For patients on eltr ombopag therapy, use of Dimension [place] TBIL is not recommended. Chloride [Moles/Vol] 106 mmol/L 98-107 [facility] Work Phone: Glucose [Mass/Vol] 137 mg/dL 74-106 [facility] Work Phone: Comment on above: Fasting Glucose resu lt greater than or equal to 126 mg/dL suggests DIABETES MELLITUS per A.D.A. criteria. Potassium [Moles/Vol] 3.6 mmol/L 3.5-5.1 [facility]: Protein [Mass/Vol] 7.2 g/dL 6.4-8.2 [facility] Work Phone: Sodium [Moles/Vol] 139 mmol/L 136-145 [facility] Work Phone: Glucose Glucometer (BldC) [M ass/Vol]on 03-04-2022 Glucose [Mass/Vol] 215 mg/dL 74-106 [facility] Work Phone: Comment on above: MANAGEMENT OF PATIEN T CARE PER NURSING PROTOCOL Laboratory - Chemistry and C hemistry - challengeon 03-04-2022 ALP [Catalytic activity/Vol] 50 U/L 45-117 [facility] Work Phone: ALT [Catalytic activity/Vol] 28 U/L 16-61 [facility] Work Phone: CO2 [Moles/Vol] 28.0 mmol/L 21.0-32.0 [facility] Work Phone: Globulin (S) [Mass/Vol] 3.6 g/dL 2.2-4.2 [facility] Work Phone: Urea nitrogen/Creatinine [Mass ratio] 9.4 mg/mg 10-20 [facility] Work Phone: No Panel Informationon 03-04 Estimated Creatinine Clearance Calc 88.72 ml/min [facility] Work Phone: Estimated GFR (MDRD) Amer 105 mL/min >60 [facility] Work Phone: Comment on above: GFR Calc Estimated GFR (MDRD) Non-Af Amer 86 mL/min >60 [facility] Work Phone: Comment on above: Non- GFR Calc Serum or plasma albumin mc urement (mass/volume)on 03-04-2022 Albumin [Mass/Vol] 3.6 g/dL 3.2-5.0 [facility] Work Phone: Serum or plasma albumin/glob ulin mass ratioon 03-04-2022 Albumin/Globulin [Mass ratio] 1.0 {ratio} 0.9-2.4 [facility] Work Phone: Serum or plasma calcium mc urement (mass/volume)on 03-04-2022 Calcium [Mass/Vol] 9.3 mg/dL 8.5-10.1 [facility] Work Phone: Serum or plasma creatinine m easurement (mass/volume)on 03-04-2022 Creatinine [Mass/Vol] 0.96 mg/dL 0.70-1.30 [facility] Work Phone: Comment on above: The validity of the calculated GFR & GFRAA in patients over 70 years has not been determined. Clinical correlation is essential. Serum or plasma urea nitroge n measurement (mass/volume)on 03-04-2022 Urea nitrogen [Mass/Vol] 9 mg/dL 7-18 [facility] Work Phone: Thin prep Papanicolaou smear with manual screeningon 03-04-2022 Thin prep Papanicolaou smear with manual screening 19 U/L 15-37 [facility] Work Phone: Thin prep Papanicolaou smear with manual screening 5 5-15 [facility] Work Phone: Absolute lymphocyte counton 03-03-2022 Lymphocytes Auto (Unsp spec) [#/Vol] 2.96 10*3/uL 0.83-4.51 [facility] Work Phone: Basophil percentageon 2021 Basophils/100 WBC (Bld) 0.6 % 0-1 [facility] Work Phone: Eosinophils/100 WBC (Bld) 2.2 % 0-5 [facility] Work Phone: Neutrophils (Bld) [#/Vol] 5.5 10*3/uL 2.0-7.7 [facility] Work Phone: Neutrophils/100 WBC (Bld) 57.7 % 47-70 [facility] Work Phone: WBC (Bld) [#/Vol] 9.5 10*3/uL 4.4-11.0 [facility] Blood erythrocytes count (nu mber/volume)on 03-03-2022 RBC (Bld) [#/Vol] 4.59 10*6/uL 4.6-6.2 [facility]: Blood hemoglobin measurement (mass/volume)on 03-03-2022 Hemoglobin (Bld) [Mass/Vol] 14.4 g/dL 13.0-16.5 [facility] Work Phone: Blood lymphocytes/100 leukoc yteson 03-03-2022 Lymphocytes/100 WBC (Bld) 31.1 % 19-41 [facility] Work Phone: Blood monocytes/100 leukocyt eson 03-03-2022 Monocytes/100 WBC (Bld) 8.0 % 0-10 [facility] Work Phone: Blood platelet mean volumeon 03-03-2022 Platelet mean volume (Bld) [Entitic vol] 9.8 fL 6.2-12.0 [facility] Work Phone: Determination of erythrocyte mean corpuscular volume (MCV)on 03-03-2022 MCV (RBC) [Entitic vol] 92.8 fL 80-94 [facility] Work Phone: Hematocrit Auto (Bld) [Volum e fraction]on 03-03-2022 Hematocrit (Bld) [Volume fraction] 42.6 % 40-54 [facility] Work Phone: Laboratory - Chemistry and C hemistry - challengeon 03-03-2022 Magnesium [Mass/Vol] 1.8 mg/dL 1.6-2.6 [facility] Work Phone: Laboratory - Hematology and Cell countson 03-03-2022 Erythrocyte distribution width (RBC) [Entitic vol] 43.8 fL 35.1-43.9 [facility] Work Phone: Erythrocyte distribution width (RBC) [Ratio] 12.9 % 11.6-14.6 [facility] Work Phone: Immature granulocytes/100 WBC (Bld) 0.400 % 0.0-0.9 [facility] Work Phone: Comment on above: IG% - Immature Granu locytes (promyelocytes, myelocytes and metamyelocytes) > 1% indicates that a LEFT SHIFT is Present. MCH (RBC) [Entitic mass] 31.4 pg 27.0-32.0 [facility] Work Phone: Nucleated RBC/100 WBC (Bld) [Ratio] 0 % 0-5 [facility] Work Phone: [phone] MCHC Auto (RBC) [Mass/Vol]on 03-03-2022 MCHC (RBC) [Mass/Vol] 33.8 g/dL 32-36 [facility] Work Phone: Platelets bldon 03-03-2022 Platelets (Bld) [#/Vol] 183 10*3/uL 150-450 [facility] Work Phone: Erythrocyte sedimentation ra daysi 03-02-2022 ESR (Bld) [Velocity] 35 mm/h 0-20 [facility] Work Phone: Laboratory - Chemistry and C hemistry - challengeon 03-02-2022 Lipase [Catalytic activity/Vol] 900 U/L 73-393 [facility] Work Phone: [phone] No Panel Informationon 03-02 C-Reactive Protein High Sensitivity 54.20 mg/L <3.00 [facility] Work Phone: Comment on above: Low Relative Risk of CVD <1.0 mg/L Average Relative Risk of CVD 1.0 - 3.0 mg/L High Relative Risk of CVD >3.0 mg/L Basophil percentageon 2021 Basophil percentage 3.0 mg/dL 2.5-4.9 [facility] Work [facility]: Direct bilirubinon 2 Bilirubin.direct [Mass/Vol] 0.28 mg/dL 0.00-0.30 [facility] Work Phone: Absolute lymphocyte counton 02-27-2022 Lymphocytes Auto (Unsp spec) [#/Vol] 2.09 10*3/uL 0.83-4.51 [facility] Work Phone: Basophil percentageon 2021 Basophil percentage 0 SEEN /hpf 0-5 [facility] Work Phone: Basophil percentage < 10.0 umol/L 11-32 [facility] Work Phone: Basophils/100 WBC (Bld) 0.5 % 0-1 [facility] Work Phone: Bilirubin [Mass/Vol] 0.60 mg/dL 0.20-1.00 [facility] Work Phone: Comment on above: For patients on eltr ombopag therapy, use of Dimension [place] TBIL is not recommended. Chloride [Moles/Vol] 105 mmol/L 98-107 [facility] Work Phone: Eosinophils/100 WBC (Bld) 0.3 % 0-5 [facility] Work Phone: Glucose [Mass/Vol] 153 mg/dL 74-106 [facility] Work Phone: Comment on above: Fasting Glucose resu lt greater than or equal to 126 mg/dL suggests DIABETES MELLITUS per A.D.A. criteria. Neutrophils (Bld) [#/Vol] 9.6 10*3/uL 2.0-7.7 [facility] Work Phone: Neutrophils/100 WBC (Bld) 74.9 % 47-70 [facility] Work Phone: Potassium [Moles/Vol] 4.3 mmol/L 3.5-5.1 [facility] Work Phone: Protein [Mass/Vol] 8.5 g/dL 6.4-8.2 [facility] Work Phone: Sodium [Moles/Vol] 136 mmol/L 136-145 [facility] Work Phone: WBC (Bld) [#/Vol] 12.8 10*3/uL 4.4-11.0 [facility] Work Phone: Bilirubin Test strip Ql (U)o n 02-27-2022 Bilirubin Ql (U) Negative Negative [facility] Work Phone: Blood erythrocytes count (nu mber/volume)on 02-27-2022 RBC (Bld) [#/Vol] 4.65 10*6/uL 4.6-6.2 [facility] Work Phone: Blood hemoglobin measurement (mass/volume)on 02-27-2022 Hemoglobin (Bld) [Mass/Vol] 15.0 g/dL 13.0-16.5 [facility] Work Phone: Blood lymphocytes/100 leukoc yteson 02-27-2022 Lymphocytes/100 WBC (Bld) 16.3 % 19-41 [facility] Work Phone: [phone] Blood monocytes/100 leukocyt eson 02-27-2022 Monocytes/100 WBC (Bld) 7.6 % 0-10 [facility] Work Phone: Blood platelet mean volumeon 02-27-2022 Platelet mean volume (Bld) [Entitic vol] 10.4 fL 6.2-12.0 [facility] Work Phone: [phone] Determination of erythrocyte mean corpuscular volume (MCV)on 02-27-2022 MCV (RBC) [Entitic vol] 89.5 fL 80-94 [facility] Work Phone: Hematocrit Auto (Bld) [Volum e fraction]on 02-27-2022 Hematocrit (Bld) [Volume fraction] 41.6 % 40-54 [facility] Work Phone: Ketones Test strip Ql (U)on 02-27-2022 Ketones Ql (U) Negative Negative [facility] Work Phone: Laboratory - Chemistry and C hemistry - challengeon 02-27-2022 ALP [Catalytic activity/Vol] 73 U/L 45-117 [facility] Work Phone: ALT [Catalytic activity/Vol] 30 U/L 16-61 [facility] Work Phone: CO2 [Moles/Vol] 25.0 mmol/L 21.0-32.0 [facility] Work Phone: Globulin (S) [Mass/Vol] 4.1 g/dL 2.2-4.2 [facility] Work Phone: Lipase [Catalytic activity/Vol] 1557 U/L 73-393 [facility] Work Phone: Urea nitrogen/Creatinine [Mass ratio] 8.2 mg/mg 10-20 [facility] Work Phone: Laboratory - Hematology and Cell countson 02-27-2022 Erythrocyte distribution width (RBC) [Entitic vol] 42.2 fL 35.1-43.9 [facility] Work Phone: Erythrocyte distribution width (RBC) [Ratio] 12.8 % 11.6-14.6 [facility] Work Phone: Immature granulocytes/100 WBC (Bld) 0.400 % 0.0-0.9 [facility] Work Phone: Comment on above: IG% - Immature Granu locytes (promyelocytes, myelocytes and metamyelocytes) > 1% indicates that a LEFT SHIFT is Present. MCH (RBC) [Entitic mass] 32.3 pg 27.0-32.0 [facility] Work Phone: Nucleated RBC/100 WBC (Bld) [Ratio] 0 % 0-5 [facility] Work Phone: MCHC Auto (RBC) [Mass/Vol]on 02-27-2022 MCHC (RBC) [Mass/Vol] 36.1 g/dL 32-36 [facility] Work Phone: Mucus LM Ql (Urine sed)on Mucus Ql (Urine sed) 0 SEEN /hpf [facility] Work Phone: Nitrite Test strip Ql (U)on 02-27-2022 Nitrite Ql (U) Negative Negative [facility] Work Phone: No Panel Informationon 02-27 Estimated Creatinine Clearance Calc 74.98 ml/min [facility] Work Phone: Estimated GFR (MDRD) Amer 89 mL/min >60 [facility] Work Phone: Comment on above: GFR Calc Estimated GFR (MDRD) Non-Af Amer 73 mL/min >60 [facility] Work Phone: Comment on above: Non- GFR Calc Ethyl Alcohol Level < 3.0 mg/dL [facility] Work Phone: Comment on above: The serum:whole bloo d ethanol ratio is approximately 1.14and varies slightly with hematocrit. Medical Alcohol reference interval and critical value innon-tolerant individuals; 50 - 100 Impairment 100 Intoxication 100 - 250 Severe Poisoning 250 - 400 Deep/possible fatal coma Platelets bldon 02-27-2022 Platelets (Bld) [#/Vol] 197 10*3/uL 150-450 [facility] Work Phone: Protein Test strip Ql (U)on 02-27-2022 Protein Ql (U) 100 mg/dl Negative [facility] Work Phone: Serum or plasma albumin mc urement (mass/volume)on 02-27-2022 Albumin [Mass/Vol] 4.4 g/dL 3.2-5.0 [facility] Work Phone: Serum or plasma albumin/glob ulin mass ratioon 02-27-2022 Albumin/Globulin [Mass ratio] 1.1 {ratio} 0.9-2.4 [facility] Work Phone: Serum or plasma calcium mc urement (mass/volume)on 02-27-2022 Calcium [Mass/Vol] 9.8 mg/dL 8.5-10.1 [facility] Work Phone: Serum or plasma creatinine m easurement (mass/volume)on 02-27-2022 Creatinine [Mass/Vol] 1.10 mg/dL 0.70-1.30 [facility] Work Phone: Comment on above: The validity of the calculated GFR & GFRAA in patients over 70 years has not been determined. Clinical correlation is essential. Serum or plasma urea nitroge n measurement (mass/volume)on 02-27-2022 Urea nitrogen [Mass/Vol] 9 mg/dL 7-18 [facility] Work Phone: Squamous epithelial cells de tection in urine sediment by light microscopyon 02-27-2022 Epithelial cells.squamous LM Ql (Urine sed) 0 SEEN /hpf 0-5 [facility] Work Phone: Thin prep Papanicolaou smear with manual screeningon 02-27-2022 Thin prep Papanicolaou smear with manual screening 24 U/L 15-37 [facility] Work Phone: Thin prep Papanicolaou smear with manual screening 6 5-15 [facility] Work Phone: Urine blood detectionon RBC Ql (U) 10 /ul Negative [facility] Work Phone: RBC Ql (U) 0 SEEN /hpf 0-5 [facility] Work Phone: Urine clarityon 02-27-2022 Clarity (U) Clear Clear [facility] Work Phone: Urine color determinationon 02-27-2022 Color (U) Yellow Yellow [facility] Work Phone: Urine glucose detectionon Glucose Ql (U) Normal mg/dl Normal [facility] Work Phone: Urine leukocyte esterase det ection by dipstickon 02-27-2022 Leukocyte esterase Test strip Ql (U) Negative Negative [facility] Work Phone: Urine pHon 02-27-2022 pH (U) 6.5 [pH] 5.0 - 8.0 [facility] Work Phone: Urine sediment bacteria coun t by microscopy (number/high power field)on 02-27-2022 Bacteria LM.HPF (Urine sed) [#/Area] 0 /[HPF] None Seen [facility] Work Phone: Urine specific gravity measu rementon 02-27-2022 Specific gravity (U) [Rel density] 1.010 1.002-1.03 0 [facility] Work Phone: Urobilinogen Auto test strip Ql (U)on 02-27-2022 Urobilinogen Ql (U) Normal mg/dl Normal [facility] Work Phone: XR CHEST PA/APon 12-10-2021 XR [...] on MonDec 10, 2021 11:50:52 AM EDT [facility] Comment on above: Order Comment: Injur y/Trauma or Illness?:Illness/Other How long have you had these symptoms (acute/chronic)?:Acute Reason for exam?:chest pain, abd pain History of cancer?:unk Surgeries, chemotherapy, or radiation?:unk Type of Exam?:Initial Additional signs and symptoms?:unk Absolute lymphocyte counton 12-09-2021 Lymphocytes Auto (Unsp spec) [#/Vol] 2.47 10*3/uL 0.83-4.51 [facility] Work Phone: Basophil percentageon 2021 Basophils/100 WBC (Bld) 0.4 % 0-1 [facility] Work Phone: Bilirubin [Mass/Vol] 1.00 mg/dL 0.20-1.00 [facility] Work Phone: Comment on above: For patients on eltr ombopag therapy, use of Dimension [place] TBIL is not recommended. Chloride [Moles/Vol] 108 mmol/L 98-107 [facility] Work Phone: Eosinophils/100 WBC (Bld) 0.8 % 0-5 [facility] Work Phone: Glucose [Mass/Vol] 98 mg/dL 74-106 [facility] Work Phone: Neutrophils (Bld) [#/Vol] 7.2 10*3/uL 2.0-7.7 [facility] Work Phone: Neutrophils/100 WBC (Bld) 68.3 % 47-70 [facility] Work Phone: Potassium [Moles/Vol] 3.3 mmol/L 3.5-5.1 [facility] Work Phone: Protein [Mass/Vol] 6.9 g/dL 6.4-8.2 [facility] Work Phone: Sodium [Moles/Vol] 138 mmol/L 136-145 [facility] Work Phone: WBC (Bld) [#/Vol] 10.6 10*3/uL 4.4-11.0 [facility] Work Phone: Blood erythrocytes count (nu mber/volume)on 12-09-2021 RBC (Bld) [#/Vol] 3.98 10*6/uL 4.6-6.2 [facility] Work Phone: Blood hemoglobin measurement (mass/volume)on 12-09-2021 Hemoglobin (Bld) [Mass/Vol] 12.7 g/dL 13.0-16.5 [facility] Work Phone: Blood lymphocytes/100 leukoc yteson 12-09-2021 Lymphocytes/100 WBC (Bld) 23.3 % 19-41 [facility] Work Phone: Blood monocytes/100 leukocyt eson 12-09-2021 Monocytes/100 WBC (Bld) 6.8 % 0-10 [facility] Work Phone: Blood platelet mean volumeon 12-09-2021 Platelet mean volume (Bld) [Entitic vol] 9.4 fL 6.2-12.0 [facility] Work Phone: Determination of erythrocyte mean corpuscular volume (MCV)on 12-09-2021 MCV (RBC) [Entitic vol] 91.0 fL 80-94 [facility] Work Phone: Glucose Glucometer (BldC) [M ass/Vol]on 12-09-2021 Glucose [Mass/Vol] 186 mg/dL 74-106 [facility] Work Phone: Comment on above: MANAGEMENT OF PATIEN T CARE PER NURSING PROTOCOL Hematocrit Auto (Bld) [Volum e fraction]on 12-09-2021 Hematocrit (Bld) [Volume fraction] 36.2 % 40-54 [facility] Work Phone: Laboratory - Chemistry and C hemistry - challengeon 12-09-2021 ALP [Catalytic activity/Vol] 70 U/L 45-117 [facility] Work Phone: ALT [Catalytic activity/Vol] 23 U/L 16-61 [facility] Work Phone: CO2 [Moles/Vol] 26.0 mmol/L 21.0-32.0 [facility] Work Phone: Globulin (S) [Mass/Vol] 3.3 g/dL 2.2-4.2 [facility] Work Phone: Lipase [Catalytic activity/Vol] 331 U/L 73-393 [facility] Work Phone: Urea nitrogen/Creatinine [Mass ratio] 11.5 mg/mg 10-20 [facility] Work Phone: Laboratory - Hematology and Cell countson 12-09-2021 Erythrocyte distribution width (RBC) [Entitic vol] 43.5 fL 35.1-43.9 [facility] Work Phone: Erythrocyte distribution width (RBC) [Ratio] 13.1 % 11.6-14.6 [facility] Work Phone: Immature granulocytes/100 WBC (Bld) 0.400 % 0.0-0.9 [facility] Work Phone: Comment on above: IG% - Immature Granu locytes (promyelocytes, myelocytes and metamyelocytes) > 1% indicates that a LEFT SHIFT is Present. MCH (RBC) [Entitic mass] 31.9 pg 27.0-32.0 [facility] Work Phone: Nucleated RBC/100 WBC (Bld) [Ratio] 0 % 0-5 [facility] Work Phone: MCHC Auto (RBC) [Mass/Vol]on 12-09-2021 MCHC (RBC) [Mass/Vol] 35.1 g/dL 32-36 [facility] Work Phone: No Panel Informationon 12-09 Ethyl Alcohol Level 7.0 mg/dL [facility] Work Phone: Comment on above: The serum:whole bloo d ethanol ratio is approximately 1.14and varies slightly with hematocrit. Medical Alcohol reference interval and critical value innon-tolerant individuals; 50 - 100 Impairment 100 Intoxication 100 - 250 Severe Poisoning 250 - 400 Deep/possible fatal coma Estimated Creatinine Clearance Calc 97.89 ml/min [facility] Work Phone: Estimated GFR (MDRD) Amer 116 mL/min >60 [facility] Work Phone: Comment on above: GFR Calc Estimated GFR (MDRD) Non-Af Amer 96 mL/min >60 [facility] Work Phone: Comment on above: Non- GFR Calc Platelets bldon 12-09-2021 Platelets (Bld) [#/Vol] 169 10*3/uL 150-450 [facility] Work Phone: Serum or plasma albumin mc urement (mass/volume)on 12-09-2021 Albumin [Mass/Vol] 3.6 g/dL 3.2-5.0 [facility] Work Phone: Serum or plasma albumin/glob ulin mass ratioon 12-09-2021 Albumin/Globulin [Mass ratio] 1.1 {ratio} 0.9-2.4 [facility] Work Phone: Serum or plasma calcium mc urement (mass/volume)on 12-09-2021 Calcium [Mass/Vol] 8.6 mg/dL 8.5-10.1 [facility] Work Phone: Serum or plasma creatinine m easurement (mass/volume)on 12-09-2021 Creatinine [Mass/Vol] 0.87 mg/dL 0.70-1.30 [facility] Work Phone: Comment on above: The validity of the calculated GFR & GFRAA in patients over 70 years has not been determined. Clinical correlation is essential. Serum or plasma urea nitroge n measurement (mass/volume)on 12-09-2021 Urea nitrogen [Mass/Vol] 10 mg/dL 7-18 [facility] Work Phone: Thin prep Papanicolaou smear with manual screeningon 12-09-2021 Thin prep Papanicolaou smear with manual screening 20 U/L 15-37 [facility] Work Phone: Thin prep Papanicolaou smear with manual screening 4 5-15 [facility] Work Phone: No Panel Informationon 12-08 Troponin I High Sensitivity 13 pg/mL 3.0-78.0 [facility] Work Phone: Comment on above: Please Note: New Destinee t Units and Gender Specific Reference Ranges. For more information see Policy Stat Procedure [place] High Sensitivity Troponin (TNIH) and attachments. Blood manual differential co mment interpretation (narrative result)on 12-07-2021 Manual differential comment Jose (Bld) [Interp] SCANNED [facility] Work Phone: Laboratory - Drug toxicology on 12-07-2021 Amphetamines Ql (U) Negative <1000 ng/mL [facility] Work Phone: Benzodiazepines Ql (U) Negative < 200 ng/mL [facility] Work Phone: Cannabinoids Screen Ql (U) Negative < 50 ng/mL [facility] Work Phone: Cocaine Ql (U) Negative < 300 ng/mL [facility] Work Phone: Opiates Ql (U) Negative < 300 ng/mL [facility] Work Phone: No Panel Informationon 12-07 MDMA (Ecstasy) Screen Negative < 500 ng/mL [facility] Work Phone: Urine Barbiturates Screen Negative < 200 ng/mL [facility] Work Phone: Urine Drug Screen Comment [facility] Work Phone: Comment on above: CONFIRMATORY TESTING [...] Urine Methadone Screen Negative < 300 ng/mL [facility] Work Phone: Urine phencyclidine (PCP) de mary kay 12-07-2021 Phencyclidine Ql (U) Negative < 25 ng/mL Marlene holland [facility] Work Phone: CNPNon 10-25-2021 CNPN Telephone (UROLAG) ----- NITHINBRONSON ([id number]) 1965 M Date Time Provider Department 10/25/21 TRINI WILLIAMSON During your visit today, we recorded the following information about you: Kendy Rivera 10/25/2021 2:19 PM Signed Patient calling office c/o frequency at night time. He was wondering if he should be on medication for prostate? Would you like him to have an appointment? Kendy Rivera, UZMA Williamson, DO 10/29/2021 1:38 PM Signed He can try [...] Encounter Status:Closed by TRINI WILLIAMSON on 10/29/21 [facility] CNOVon 07-06-2021 CNOV Office Visit (AKURFL ) ----- BRONSON WELLER ([id number]) 1965 M Date Time Provider Department 07/06/21 3:15 PM TRINI WILLIAMSON During your visit today, we recorded the following information about you: Weight Height 92.5 kg 1.778 m Trini Williamson DO 07/06/2021 4:05 PM Signed ?? [facility] [place] [facility] LOCATION: [address] [place] [address] ESTABLISHED PATIENT PATIENT INFO: Bronson Weller 56 [...] 61.2 Lymph% (%) Date Value 05/21/2021 28.6 [place]% (%) Date Value 05/21/2021 8.0 Eosin% (%) Date Value 05/21/2021 1.7 Baso% (%) Date Value 05/21/2021 0.5 Abs Neut (ANC) (k/uL) Date Value 05/21/2021 6.76 Abs Guayan[place] (k/uL) Date Value 05/21/2021 0.89 (H) Abs [...] (ELAVIL) 2 (more content not included)... Normal [facility] MRI PROSTATE WO/W IVCONon MRI PROSTATE WO/W IVCON * * *Final Repor t* * * DATE OF EXAM: Jul 02 2021 10:04AM [facility] 0751 - MRI PROSTATE WO/W IVCON / [...] volume were obtained using a semi-automated software (Cryptmint). CONTRAST: IV: 19ml cc of (Dotarem). RESULT: [...] of suspicion for clinically significant prostate cancer (Alen score 3 + 4 or higher). PI-RADS v2.1 Assessment Categories: PI-RADS 1: Clinically significant cancer is highly unlikely PI-RADS 2: Clinically significant cancer is unlikely PI-RADS 3: Clinically significant cancer is equivocal PI-RADS 4: Clinically significant cancer is likely PI-RADS 5: Clinically significant cancer is highly likely (V.) Environmental Attorney: JACQUE Transcribe Date/Time: Jul 06 2021 2:49P Dictated by : LITO BUTTERFIELD MD This examination was interpreted and the report reviewed and electronically signed by: LITO BUTTERFIELD MD on Jul 06 2021 3:15PM EST [id number] Normal [facility] CBC and Differentialon 11-26 Abs Baso 0.07 k/uL Normal <0.11 [facility] Comment on above: Performed By: #### C BCDIF, FT4, CMP, LIPB, TSH, HBA1C, VITD #### [facility] Routine Lab [address] [place], [place] [id number] Abs [place] 0.70 k/uL Normal <0.87 [facility] Comment on above: Performed By: #### C BCDIF, FT4, CMP, LIPB, TSH, HBA1C, VITD #### [facility] Routine Lab [address] [place], [place] [phone] Abs Neut 7.70 k/uL High 1.45-7.50 [facility] Comment on above: Performed By: #### C BCDIF, FT4, CMP, LIPB, TSH, HBA1C, VITD #### [facility] Routine Lab [address] [place], [place] [phone] Absolute nRBC <0.01 Normal <0.01 [facility] Comment on above: Performed By: #### C BCDIF, FT4, CMP, LIPB, TSH, HBA1C, VITD #### [facility] Routine Lab [address] [place] [address] Basophils/100 WBC (Bld) 0.6 % Normal [facility] Comment on above: Performed By: #### C BCDIF, FT4, CMP, LIPB, TSH, HBA1C, VITD #### [facility] Routine Lab [address] [place] [address] DTYPE ADIFF Normal [facility] Comment on above: Performed By: #### C BCDIF, FT4, CMP, LIPB, TSH, HBA1C, VITD #### [facility] Routine Lab [address] [place] [phone] Eosinophils (Bld) [#/Vol] 0.16 10*3/uL Normal <0.46 [facility] Comment on above: Performed By: #### C BCDIF, FT4, CMP, LIPB, TSH, HBA1C, VITD #### [facility] Routine Lab [address] [place] [phone] Eosinophils/100 WBC (Bld) 1.3 % Normal [facility] Comment on above: Performed By: #### C BCDIF, FT4, CMP, LIPB, TSH, HBA1C, VITD #### [facility] Routine Lab [address] [place] [phone] Erythrocyte distribution width (RBC) [Ratio] 12.8 % Normal 11.5-15.0 [facility] Comment on above: Performed By: #### C BCDIF, FT4, CMP, LIPB, TSH, HBA1C, VITD #### [facility] Routine Lab [address] [place] [address] Hematocrit (Bld) [Volume fraction] 45.1 % Normal 39.0-51.0 [facility] Comment on above: Performed By: #### C BCDIF, FT4, CMP, LIPB, TSH, HBA1C, VITD #### [facility] Routine Lab [address] [place] [address] Hemoglobin (Bld) [Mass/Vol] 15.0 g/dL Normal 13.0-17.0 [facility] Comment on above: Performed By: #### C BCDIF, FT4, CMP, LIPB, TSH, HBA1C, VITD #### [facility] Routine Lab [address] [place] [address] Lymphocytes (Bld) [#/Vol] 3.56 10*3/uL Normal 1.00-4.00 [facility] Comment on above: Performed By: #### C BCDIF, FT4, CMP, LIPB, TSH, HBA1C, VITD #### [facility] Routine Lab [address] [place] [address] Lymphocytes/100 WBC (Bld) 29.2 % Normal [facility] Comment on above: Performed By: #### C BCDIF, FT4, CMP, LIPB, TSH, HBA1C, VITD #### [facility] Routine Lab [address] [place] [address] MCH (RBC) [Entitic mass] 30.7 pG Normal 26.0-34.0 [facility] Comment on above: Performed By: #### C BCDIF, FT4, CMP, LIPB, TSH, HBA1C, VITD #### [facility] Routine Lab [address] [place] [address] MCHC (RBC) [Mass/Vol] 33.3 g/dL Normal 30.5-36.0 [facility] Comment on above: Performed By: #### C BCDIF, FT4, CMP, LIPB, TSH, HBA1C, VITD #### [facility] Routine Lab [address] [place] [address] MCV (RBC) [Entitic vol] 92.2 fL Normal 80.0-100.0 [facility] Comment on above: Performed By: #### C BCDIF, FT4, CMP, LIPB, TSH, HBA1C, VITD #### [facility] Routine Lab [address] [place], [place] [address] Monocytes/100 WBC (Bld) 5.7 % Normal [facility] Comment on above: Performed By: #### C BCDIF, FT4, CMP, LIPB, TSH, HBA1C, VITD #### [facility] Routine Lab [address] [place], [place] [address] Neutrophils/100 WBC (Bld) 63.2 % Normal [facility] Comment on above: Performed By: #### C BCDIF, FT4, CMP, LIPB, TSH, HBA1C, VITD #### [facility] Routine Lab [address] [place] [address] NRBCs 0.0 /100 WBC Normal 0 [facility] Comment on above: Performed By: #### C BCDIF, FT4, CMP, LIPB, TSH, HBA1C, VITD #### [facility] Routine Lab [address] [place], [place] [address] Platelet mean volume (Bld) [Entitic vol] 12.0 fL Normal 9.0-12.7 [facility] Comment on above: Performed By: #### C BCDIF, FT4, CMP, LIPB, TSH, HBA1C, VITD #### [facility] Routine Lab [address] [place], [place] [address] Platelets (Bld) [#/Vol] 224 10*3/uL Normal 150-400 [facility] Comment on above: Performed By: #### C BCDIF, FT4, CMP, LIPB, TSH, HBA1C, VITD #### [facility] Routine Lab [address] [place], [place] [address] RBC (Bld) [#/Vol] 4.89 10*6/uL Normal 4.20-6.00 [facility] Comment on above: Performed By: #### C BCDIF, FT4, CMP, LIPB, TSH, HBA1C, VITD #### [facility] Routine Lab [address] [place], [place] [address] WBC (Bld) [#/Vol] 12.19 10*3/uL High 3.70-11.00 [facility] Comment on above: Performed By: #### C BCDIF, FT4, CMP, LIPB, TSH, HBA1C, VITD #### [facility] Routine Lab [address] [place], [place] [address] Comp Metabolic Panelon 11-26 Albumin [Mass/Vol] 4.9 g/dL Normal 3.9-4.9 [facility] Reference [facility] Comment on above: Performed By: #### C BCDIF, FT4, CMP, LIPB, TSH, HBA1C, VITD #### [facility] Routine Lab [address] [place], [place] [address] ALP [Catalytic activity/Vol] 69 U/L Normal 38-113 [facility] Comment on above: Performed By: #### C BCDIF, FT4, CMP, LIPB, TSH, HBA1C, VITD #### [facility] Routine Lab [address] [place] [id number] ALT [Catalytic activity/Vol] 43 U/L Normal 10-54 [facility] Comment on above: Performed By: #### C BCDIF, FT4, CMP, LIPB, TSH, HBA1C, VITD #### [facility] Routine Lab [address] [place], [place] [phone] Anion gap [Moles/Vol] 19 mmol/L High 9-18 [facility] Comment on above: Performed By: #### C BCDIF, FT4, CMP, LIPB, TSH, HBA1C, VITD #### [facility] Routine Lab [address] [place], [place] [address] AST [Catalytic activity/Vol] 35 U/L Normal 14-40 [facility] Comment on above: Performed By: #### C BCDIF, FT4, CMP, LIPB, TSH, HBA1C, VITD #### [facility] Routine Lab [address] [place], [place] [address] Bilirubin Ql (U) 0.9 mg/dL Normal 0.2-1.3 [facility] Reference Lab Comment on above: Performed By: #### C BCDIF, FT4, CMP, LIPB, TSH, HBA1C, VITD #### [facility] Routine Lab [address] [place], [place] [address] Calcium [Mass/Vol] 10.0 mg/dL Normal 8.5-10.2 [facility] Comment on above: Performed By: #### C BCDIF, FT4, CMP, LIPB, TSH, HBA1C, VITD #### [facility] Routine Lab [address] [place], [place] [address] Chloride [Moles/Vol] 92 mmol/L Low 97-105 [facility] Comment on above: Performed By: #### C BCDIF, FT4, CMP, LIPB, TSH, HBA1C, VITD #### [facility] Routine Lab [address] [place], [place] [address] CO2 [Moles/Vol] 21 mmol/L Low 22-30 [facility] Comment on above: Performed By: #### C BCDIF, FT4, CMP, LIPB, TSH, HBA1C, VITD #### [facility] Routine Lab [address] [place], [place] [address] Creatinine [Mass/Vol] 0.97 mg/dL Normal 0.73-1.22 [facility] Comment on above: Performed By: #### C BCDIF, FT4, CMP, LIPB, TSH, HBA1C, VITD #### [facility] Routine Lab [address] [place], [place] [address] eGFR- Amer. >60 Normal [facility] Reference [facility] Comment on above: Performed By: #### C BCDIF, FT4, CMP, LIPB, TSH, HBA1C, VITD #### [facility] Routine Lab [address] [place], [place] [address] GFR/1.73 sq M predicted among non-blacks MDRD (S/P/Bld) [Vol rate/Area] mL/min/{1.73_m2} Normal [facility] Comment on above: Performed By: #### C BCDIF, FT4, CMP, LIPB, TSH, HBA1C, VITD #### [facility] Routine Lab [address] [place], [place] [address] Glucose [Mass/Vol] 226 mg/dL High 74-99 [facility] Comment on above: Performed By: #### C BCDIF, FT4, CMP, LIPB, TSH, HBA1C, VITD #### [facility] Routine Lab [address] [place], [place] [address] Potassium [Moles/Vol] 3.7 mmol/L Normal 3.7-5.1 [facility] Comment on above: Performed By: #### C BCDIF, FT4, CMP, LIPB, TSH, HBA1C, VITD #### [facility] Routine Lab [address] [place] [address] Protein [Mass/Vol] 7.7 g/dL Normal 6.3-8.0 [facility] Comment on above: Performed By: #### C BCDIF, FT4, CMP, LIPB, TSH, HBA1C, VITD #### [facility] Routine Lab [address] [place], [place] [address] Sodium [Moles/Vol] 132 mmol/L Low 136-144 [facility] Comment on above: Performed By: #### C BCDIF, FT4, CMP, LIPB, TSH, HBA1C, VITD #### [facility] Routine Lab [address] [place], [place] [address] Urea nitrogen [Mass/Vol] 11 mg/dL Normal 9-24 [facility] Comment on above: Performed By: #### C BCDIF, FT4, CMP, LIPB, TSH, HBA1C, VITD #### [facility] Routine Lab [address] [place], [place] [address] Hemoglobin A1con 11-27-2019 HbA1c (Bld) [Mass fraction] 192 mg/dL Normal [facility] Comment on above: Performed By: #### C BCDIF, FT4, CMP, LIPB, TSH, HBA1C, VITD #### [facility] Routine Lab [address] [place] [address] HbA1c (Bld) [Mass fraction] 8.3 % High 4.3-5.6 [facility] Comment on above: Performed By: #### C BCDIF, FT4, CMP, LIPB, TSH, HBA1C, VITD #### [facility] Routine Lab [address] [place] [address] Lipid Panel, Basicon 020 Cholesterol [Mass/Vol] 145 mg/dL Normal <200 [facility] Reference Lab Comment on above: Performed By: #### C BCDIF, FT4, CMP, LIPB, TSH, HBA1C, VITD #### [facility] Routine Lab [address] [place] [address] Cholesterol in HDL [Mass/Vol] 36 mg/dL Low >39 [facility] Comment on above: Performed By: #### C BCDIF, FT4, CMP, LIPB, TSH, HBA1C, VITD #### [facility] Routine Lab [address] [place], [place] [address] Cholesterol in LDL [Mass/Vol] 77 mg/dL Normal <100 [facility] Comment on above: Performed By: #### C BCDIF, FT4, CMP, LIPB, TSH, HBA1C, VITD #### [facility] Routine Lab [address] [place] [address] Cholesterol in VLDL [Mass/Vol] 32 mg/dL High <30 [facility] Comment on above: Performed By: #### C BCDIF, FT4, CMP, LIPB, TSH, HBA1C, VITD #### [facility] Routine Lab [address] [place] [address] Cholesterol non HDL [Mass/Vol] 109 mg/dL Normal <130 [facility] Comment on above: Performed By: #### C BCDIF, FT4, CMP, LIPB, TSH, HBA1C, VITD #### [facility] Routine Lab [address] [place] [phone] LDL:HDL Ratio 2.14 Normal <2.54 [facility] Comment on above: Performed By: #### C BCDIF, FT4, CMP, LIPB, TSH, HBA1C, VITD #### [facility] Routine Lab [address] [place] [phone] TC:HDL Ratio 4.03 Normal <5.10 [facility] Comment on above: Performed By: #### C BCDIF, FT4, CMP, LIPB, TSH, HBA1C, VITD #### [facility] Routine Lab [address] [place] [address] Triglyceride [Mass/Vol] 160 mg/dL High <150 [facility] Comment on above: Performed By: #### C BCDIF, FT4, CMP, LIPB, TSH, HBA1C, VITD #### [facility] Routine Lab [address] [place] [address] Lipid Panel, Basicon 020 Fasting Time 12 hrs Normal [facility] Comment on above: Performed By: #### C BCDIF, FT4, CMP, LIPB, TSH, HBA1C, VITD #### [facility] Routine Lab [address] [place] [address] Basic Metabolic Panlon 10-09 Anion gap [Moles/Vol] 18 mmol/L Normal 9-18 [facility] Comment on above: Performed By: #### C BCDIF, FT4, CMP, LIPB, TSH, HBA1C, VITD #### [facility] Routine Lab [address] [place], [place] [address] Calcium [Mass/Vol] 10.4 mg/dL High 8.5-10.2 [facility] Comment on above: Performed By: #### C BCDIF, FT4, CMP, LIPB, TSH, HBA1C, VITD #### [facility] Routine Lab [address] [place], [place] [address] Chloride [Moles/Vol] 95 mmol/L Low 97-105 [facility] Comment on above: Performed By: #### C BCDIF, FT4, CMP, LIPB, TSH, HBA1C, VITD #### [facility] Routine Lab [address] [place] [address] CO2 [Moles/Vol] 23 mmol/L Normal 22-30 [facility] Comment on above: Performed By: #### C BCDIF, FT4, CMP, LIPB, TSH, HBA1C, VITD #### [facility] Routine Lab [address] [place], [place] [address] Creatinine [Mass/Vol] 1.02 mg/dL Normal 0.73-1.22 [facility] Comment on above: Performed By: #### C BCDIF, FT4, CMP, LIPB, TSH, HBA1C, VITD #### [facility] Routine Lab [address] [place] [phone] eGFR- Amer. >60 Normal [facility] Comment on above: Performed By: #### C BCDIF, FT4, CMP, LIPB, TSH, HBA1C, VITD #### [facility] Routine Lab [address] [place] [phone] GFR/1.73 sq M predicted among non-blacks MDRD (S/P/Bld) [Vol rate/Area] mL/min/{1.73_m2} Normal [facility] Comment on above: Performed By: #### C BCDIF, FT4, CMP, LIPB, TSH, HBA1C, VITD #### [facility] Routine Lab [address] [place], [place] [address] Glucose [Mass/Vol] 148 mg/dL High 74-99 [facility] Comment on above: Performed By: #### C BCDIF, FT4, CMP, LIPB, TSH, HBA1C, VITD #### [facility] Routine Lab [address] [place], [place] [address] Potassium [Moles/Vol] 3.8 mmol/L Normal 3.7-5.1 [facility] Comment on above: Performed By: #### C BCDIF, FT4, CMP, LIPB, TSH, HBA1C, VITD #### [facility] Routine Lab [address] [place], [place] [address] Sodium [Moles/Vol] 136 mmol/L Normal 136-144 [facility] Comment on above: Performed By: #### C BCDIF, FT4, CMP, LIPB, TSH, HBA1C, VITD #### [facility] Routine Lab [address] [place] [address] Urea nitrogen [Mass/Vol] 12 mg/dL Normal 9-24 [facility] Comment on above: Performed By: #### C BCDIF, FT4, CMP, LIPB, TSH, HBA1C, VITD #### [facility] Routine Lab [address] [place] [address] Lipaseon 10-09-2019 Lipase [Catalytic activity/Vol] 44 U/L Normal 16-61 [facility] Comment on above: Performed By: #### C BCDIF, FT4, CMP, LIPB, TSH, HBA1C, VITD #### [facility] Routine Lab [address] [place] [address] Amylaseon 09-21-2019 Amylase [Catalytic activity/Vol] 61 U/L Normal 30-104 [facility] Comment on above: Performed By: #### C BCDIF, FT4, CMP, LIPB, TSH, HBA1C, VITD #### [facility] Routine Lab [address] [place], [place] [address] Basic Metabolic Panlon 09-21 Anion gap [Moles/Vol] 16 mmol/L Normal 9-18 [facility] Comment on above: Performed By: #### C BCDIF, FT4, CMP, LIPB, TSH, HBA1C, VITD #### [facility] Routine Lab [address] [place], [place] [address] Calcium [Mass/Vol] 10.3 mg/dL High 8.5-10.2 [facility] Comment on above: Performed By: #### C BCDIF, FT4, CMP, LIPB, TSH, HBA1C, VITD #### [facility] Routine Lab [address] [place], [place] [address] Chloride [Moles/Vol] 100 mmol/L Normal 97-105 [facility] Lab Comment on above: Performed By: #### C BCDIF, FT4, CMP, LIPB, TSH, HBA1C, VITD #### [facility] Routine Lab [address] [place], [place] [address] CO2 [Moles/Vol] 24 mmol/L Normal 22-30 [facility] Comment on above: Performed By: #### C BCDIF, FT4, CMP, LIPB, TSH, HBA1C, VITD #### [facility] Routine Lab [address] [place], [place] [address] Creatinine [Mass/Vol] 1.14 mg/dL Normal 0.73-1.22 [facility] Comment on above: Performed By: #### C BCDIF, FT4, CMP, LIPB, TSH, HBA1C, VITD #### [facility] Routine Lab [address] [place], [place] [address] eGFR- Amer. >60 Normal [facility] Comment on above: Performed By: #### C BCDIF, FT4, CMP, LIPB, TSH, HBA1C, VITD #### [facility] Routine Lab [address] [place], [place] [address] GFR/1.73 sq M predicted among non-blacks MDRD (S/P/Bld) [Vol rate/Area] mL/min/{1.73_m2} Normal [facility] Comment on above: Performed By: #### C BCDIF, FT4, CMP, LIPB, TSH, HBA1C, VITD #### [facility] Routine Lab [address] [place], [place] [address] Glucose [Mass/Vol] 196 mg/dL High 74-99 [facility] Comment on above: Performed By: #### C BCDIF, FT4, CMP, LIPB, TSH, HBA1C, VITD #### [facility] Routine Lab [address] [place], [place] [address] Potassium [Moles/Vol] 3.9 mmol/L Normal 3.7-5.1 [facility] Comment on above: Performed By: #### C BCDIF, FT4, CMP, LIPB, TSH, HBA1C, VITD #### [facility] Routine Lab [address] [place], [place] [address] Sodium [Moles/Vol] 140 mmol/L Normal 136-144 [facility] Reference Lab Comment on above: Performed By: #### C BCDIF, FT4, CMP, LIPB, TSH, HBA1C, VITD #### [facility] [address] [place], [place] [address] Urea nitrogen [Mass/Vol] 22 mg/dL Normal 9-24 [facility] Comment on above: Performed By: #### C BCDIF, FT4, CMP, LIPB, TSH, HBA1C, VITD #### [facility] [address] [place] [address] Lipaseon 09-21-2019 Lipase [Catalytic activity/Vol] 89 U/L High 16-61 [facility] Comment on above: Performed By: #### C BCDIF, FT4, CMP, LIPB, TSH, HBA1C, VITD #### [facility] [address] [place] [address] Vitamin D 25 Hydroxyon 08-23 Vitamin D 25 Hydroxy 61.6 ng/mL Normal 31.0-80.0 [facility] Reference Lab Comment on above: Performed By: #### C BCDIF, FT4, CMP, LIPB, TSH, HBA1C, VITD #### [facility] [address] [place] [address] CBC and Differentialon 08-22 Abs Baso 0.05 k/uL Normal <0.11 [facility] Comment on above: Performed By: #### C BCDIF, FT4, CMP, LIPB, TSH, HBA1C, VITD #### [facility] [address] [place] [address] Abs [place] 0.82 k/uL Normal <0.87 [facility] Comment on above: Performed By: #### C BCDIF, FT4, CMP, LIPB, TSH, HBA1C, VITD #### [facility] [address] [place] [address] Abs Neut 5.32 k/uL Normal 1.45-7.50 [facility] Comment on above: Performed By: #### C BCDIF, FT4, CMP, LIPB, TSH, HBA1C, VITD #### [facility] [address] [place], [place] [id number] Absolute nRBC <0.01 Normal <0.01 [facility] Comment on above: Performed By: #### C BCDIF, FT4, CMP, LIPB, TSH, HBA1C, VITD #### [facility] [address] [place] [phone] Basophils/100 WBC (Bld) 0.5 % Normal [facility] Reference Lab Comment on above: Performed By: #### C BCDIF, FT4, CMP, LIPB, TSH, HBA1C, VITD #### [facility] [address] [place] [phone] DTYPE ADIFF Normal [facility] Comment on above: Performed By: #### C BCDIF, FT4, CMP, LIPB, TSH, HBA1C, VITD #### [facility] [address] [place] [phone] Eosinophils (Bld) [#/Vol] 0.21 10*3/uL Normal <0.46 [facility] Comment on above: Performed By: #### C BCDIF, FT4, CMP, LIPB, TSH, HBA1C, VITD #### [facility] [address] [place] [phone] Eosinophils/100 WBC (Bld) 2.0 % Normal [facility] Comment on above: Performed By: #### C BCDIF, FT4, CMP, LIPB, TSH, HBA1C, VITD #### [facility] [address] [place] [phone] Erythrocyte distribution width (RBC) [Ratio] 12.8 % Normal 11.5-15.0 [facility] Comment on above: Performed By: #### C BCDIF, FT4, CMP, LIPB, TSH, HBA1C, VITD #### [facility] [address] [place] [phone] Hematocrit (Bld) [Volume fraction] 43.9 % Normal 39.0-51.0 [facility] Comment on above: Performed By: #### C BCDIF, FT4, CMP, LIPB, TSH, HBA1C, VITD #### [facility] [address] [place], [place] [address] Hemoglobin (Bld) [Mass/Vol] 14.5 g/dL Normal 13.0-17.0 [facility] Comment on above: Performed By: #### C BCDIF, FT4, CMP, LIPB, TSH, HBA1C, VITD #### [facility] [address] [place], [place] [address] Lymphocytes (Bld) [#/Vol] 4.07 10*3/uL High 1.00-4.00 [facility] Comment on above: Performed By: #### C BCDIF, FT4, CMP, LIPB, TSH, HBA1C, VITD #### [facility] [address] [place], [place] [address] Lymphocytes/100 WBC (Bld) 38.9 % Normal [facility] Comment on above: Performed By: #### C BCDIF, FT4, CMP, LIPB, TSH, HBA1C, VITD #### [facility] [address] [place] [address] MCH (RBC) [Entitic mass] 30.8 pG Normal 26.0-34.0 [facility] Comment on above: Performed By: #### C BCDIF, FT4, CMP, LIPB, TSH, HBA1C, VITD #### [facility] [address] [place], [place] [address] MCHC (RBC) [Mass/Vol] 33.0 g/dL Normal 30.5-36.0 [facility] Reference Lab Comment on above: Performed By: #### C BCDIF, FT4, CMP, LIPB, TSH, HBA1C, VITD #### [facility] [address] [place], [place] [address] MCV (RBC) [Entitic vol] 93.2 fL Normal 80.0-100.0 [facility] Reference Lab Comment on above: Performed By: #### C BCDIF, FT4, CMP, LIPB, TSH, HBA1C, VITD #### [facility] [address] [place], [place] [address] Monocytes/100 WBC (Bld) 7.8 % Normal [facility] Comment on above: Performed By: #### C BCDIF, FT4, CMP, LIPB, TSH, HBA1C, VITD #### [facility] [address] [place], [place] [address] Neutrophils/100 WBC (Bld) 50.8 % Normal [facility] Comment on above: Performed By: #### C BCDIF, FT4, CMP, LIPB, TSH, HBA1C, VITD #### [facility] [address] [place] [address] NRBCs 0.0 /100 WBC Normal 0 [facility] Comment on above: Performed By: #### C BCDIF, FT4, CMP, LIPB, TSH, HBA1C, VITD #### [facility] [address] [place], [place] [address] Platelet mean volume (Bld) [Entitic vol] 11.4 fL Normal 9.0-12.7 [facility] Comment on above: Performed By: #### C BCDIF, FT4, CMP, LIPB, TSH, HBA1C, VITD #### [facility] [address] [place], [place] [address] Platelets (Bld) [#/Vol] 207 10*3/uL Normal 150-400 [facility] Comment on above: Performed By: #### C BCDIF, FT4, CMP, LIPB, TSH, HBA1C, VITD #### [facility] [address] [place], [place] [address] RBC (Bld) [#/Vol] 4.71 10*6/uL Normal 4.20-6.00 [facility] Reference Lab Comment on above: Performed By: #### C BCDIF, FT4, CMP, LIPB, TSH, HBA1C, VITD #### [facility] [address] [place], [place] [address] WBC (Bld) [#/Vol] 10.47 10*3/uL Normal 3.70-11.00 [facility] Reference [facility] Comment on above: Performed By: #### C BCDIF, FT4, CMP, LIPB, TSH, HBA1C, VITD #### [facility] [address] [place] [address] Comp Metabolic Panelon 08-22 Albumin [Mass/Vol] 4.8 g/dL Normal 3.9-4.9 [facility] Reference Lab Comment on above: Performed By: #### C BCDIF, FT4, CMP, LIPB, TSH, HBA1C, VITD #### [facility] [address] [place] [address] ALP [Catalytic activity/Vol] 54 U/L Normal 38-113 [facility] Comment on above: Performed By: #### C BCDIF, FT4, CMP, LIPB, TSH, HBA1C, VITD #### [facility] [address] [place] [address] ALT [Catalytic activity/Vol] 40 U/L Normal 10-54 [facility] Comment on above: Performed By: #### C BCDIF, FT4, CMP, LIPB, TSH, HBA1C, VITD #### [facility] [address] [place], [place] [address] Anion gap [Moles/Vol] 14 mmol/L Normal 9-18 [facility] Reference Lab Comment on above: Performed By: #### C BCDIF, FT4, CMP, LIPB, TSH, HBA1C, VITD #### [facility] [address] [place], [place] [address] AST [Catalytic activity/Vol] 30 U/L Normal 14-40 [facility] Comment on above: Performed By: #### C BCDIF, FT4, CMP, LIPB, TSH, HBA1C, VITD #### [facility] [address] [place] [address] Bilirubin Ql (U) 0.8 mg/dL Normal 0.2-1.3 [facility] Reference Lab Comment on above: Performed By: #### C BCDIF, FT4, CMP, LIPB, TSH, HBA1C, VITD #### [facility] [address] [place] [address] Calcium [Mass/Vol] 10.0 mg/dL Normal 8.5-10.2 [facility] Reference Lab Comment on above: Performed By: #### C BCDIF, FT4, CMP, LIPB, TSH, HBA1C, VITD #### [facility] [address] [place] [address] Chloride [Moles/Vol] 98 mmol/L Normal 97-105 [facility] Comment on above: Performed By: #### C BCDIF, FT4, CMP, LIPB, TSH, HBA1C, VITD #### [facility] [address] [place] [address] CO2 [Moles/Vol] 25 mmol/L Normal 22-30 [facility] Comment on above: Performed By: #### C BCDIF, FT4, CMP, LIPB, TSH, HBA1C, VITD #### [facility] [address] [place] [phone] Creatinine [Mass/Vol] 0.97 mg/dL Normal 0.73-1.22 [facility] Reference Lab Comment on above: Performed By: #### C BCDIF, FT4, CMP, LIPB, TSH, HBA1C, VITD #### [facility] [address] [place] [address] eGFR- Amer. >60 Normal [facility] Reference Lab Comment on above: Performed By: #### C BCDIF, FT4, CMP, LIPB, TSH, HBA1C, VITD #### [facility] [address] [place], [place] [address] GFR/1.73 sq M predicted among non-blacks MDRD (S/P/Bld) [Vol rate/Area] mL/min/{1.73_m2} Normal [facility] Comment on above: Performed By: #### C BCDIF, FT4, CMP, LIPB, TSH, HBA1C, VITD #### [facility] [address] [place], [place] [address] Glucose [Mass/Vol] 84 mg/dL Normal 74-99 [facility] Reference Lab Comment on above: Performed By: #### C BCDIF, FT4, CMP, LIPB, TSH, HBA1C, VITD #### [facility] [address] [place], [place] [address] Potassium [Moles/Vol] 3.6 mmol/L Low 3.7-5.1 [facility] Reference Lab Comment on above: Performed By: #### C BCDIF, FT4, CMP, LIPB, TSH, HBA1C, VITD #### [facility] [address] [place], [place] [address] Protein [Mass/Vol] 7.9 g/dL Normal 6.3-8.0 [facility] Reference Lab Comment on above: Performed By: #### C BCDIF, FT4, CMP, LIPB, TSH, HBA1C, VITD #### [facility] [address] [place], [place] [address] Sodium [Moles/Vol] 137 mmol/L Normal 136-144 [facility] Reference Lab Comment on above: Performed By: #### C BCDIF, FT4, CMP, LIPB, TSH, HBA1C, VITD #### [facility] [address] [place], [place] [address] Urea nitrogen [Mass/Vol] 15 mg/dL Normal 9-24 [facility] Comment on above: Performed By: #### C BCDIF, FT4, CMP, LIPB, TSH, HBA1C, VITD #### [facility] [address] [place], [place] [address] Hemoglobin A1con 08-22-2019 HbA1c (Bld) [Mass fraction] 6.8 % High 4.3-5.6 [facility] Comment on above: Performed By: #### C BCDIF, FT4, CMP, LIPB, TSH, HBA1C, VITD #### [facility] [address] [place], [place] [address] HbA1c (Bld) [Mass fraction] 148 mg/dL Normal [facility] Comment on above: Performed By: #### C BCDIF, FT4, CMP, LIPB, TSH, HBA1C, VITD #### [facility] [address] [place], [place] [address] Lipid Panel, Basicon 019 Cholesterol [Mass/Vol] 176 mg/dL Normal <200 [facility] Reference Lab Comment on above: Performed By: #### C BCDIF, FT4, CMP, LIPB, TSH, HBA1C, VITD #### [facility] [address] [place], [place] [address] Cholesterol in HDL [Mass/Vol] 39 mg/dL Low >39 [facility] Comment on above: Performed By: #### C BCDIF, FT4, CMP, LIPB, TSH, HBA1C, VITD #### [facility] [address] [place], [place] [address] Cholesterol in LDL [Mass/Vol] 118 mg/dL High <100 [facility] Comment on above: Performed By: #### C BCDIF, FT4, CMP, LIPB, TSH, HBA1C, VITD #### [facility] [address] [place], [place] [address] Cholesterol in VLDL [Mass/Vol] 19 mg/dL Normal <30 [facility] Comment on above: Performed By: #### C BCDIF, FT4, CMP, LIPB, TSH, HBA1C, VITD #### [facility] [address] [place] [phone] Cholesterol non HDL [Mass/Vol] 137 mg/dL High <130 [facility] Comment on above: Performed By: #### C BCDIF, FT4, CMP, LIPB, TSH, HBA1C, VITD #### [facility] [address] [place] [phone] LDL:HDL Ratio 3.03 High <2.54 [facility] Comment on above: Performed By: #### C BCDIF, FT4, CMP, LIPB, TSH, HBA1C, VITD #### [facility] [address] [place] [phone] TC:HDL Ratio 4.51 Normal <5.10 [facility] Comment on above: Performed By: #### C BCDIF, FT4, CMP, LIPB, TSH, HBA1C, VITD #### [facility] [address] [place] [phone] Triglyceride [Mass/Vol] 96 mg/dL Normal <150 [facility] Reference Lab Comment on above: Performed By: #### C BCDIF, FT4, CMP, LIPB, TSH, HBA1C, VITD #### [facility] [address] [place] [phone] Fasting Time 12 hrs Normal [facility] Comment on above: Performed By: #### C BCDIF, FT4, CMP, LIPB, TSH, HBA1C, VITD #### [facility] [address] [place] [phone] CBC and Differentialon 05-16 Abs Baso 0.03 k/uL Normal <0.11 [facility] Comment on above: Performed By: #### C BCDIF, HBA1C, VITD, CMP, LIPB #### [facility] [address] [place] [address] Abs [place] 0.58 k/uL Normal <0.87 [facility] Comment on above: Performed By: #### C BCDIF, HBA1C, VITD, CMP, LIPB #### [facility] [address] [place] [address] Abs Neut 5.33 k/uL Normal 1.45-7.50 [facility] Comment on above: Performed By: #### C BCDIF, HBA1C, VITD, CMP, LIPB #### [facility] [address] [place] [address] Absolute nRBC <0.01 Normal <0.01 [facility] Comment on above: Performed By: #### C BCDIF, HBA1C, VITD, CMP, LIPB #### [facility] [address] [phone] Basophils/100 WBC (Bld) 0.4 % Normal [facility] Reference Lab Comment on above: Performed By: #### C BCDIF, HBA1C, VITD, CMP, LIPB #### [facility] [address] [place] [address] DTYPE ADIFF Normal [facility] Comment on above: Performed By: #### C BCDIF, HBA1C, VITD, CMP, LIPB #### [facility] [address] [place] [address] Eosinophils (Bld) [#/Vol] 0.13 10*3/uL Normal <0.46 [facility] Comment on above: Performed By: #### C BCDIF, HBA1C, VITD, CMP, LIPB #### [facility] [address] [place] [address] Eosinophils/100 WBC (Bld) 1.5 % Normal [facility] Comment on above: Performed By: #### C BCDIF, HBA1C, VITD, CMP, LIPB #### [facility] [address] [place] [address] Erythrocyte distribution width (RBC) [Ratio] 13.1 % Normal 11.5-15.0 [facility] Comment on above: Performed By: #### C BCDIF, HBA1C, VITD, CMP, LIPB #### [facility] [address] [place] [address] Hematocrit (Bld) [Volume fraction] 47.4 % Normal 39.0-51.0 [facility] Comment on above: Performed By: #### C BCDIF, HBA1C, VITD, CMP, LIPB #### [facility] [address] [place] [address] Hemoglobin (Bld) [Mass/Vol] 15.3 g/dL Normal 13.0-17.0 [facility] Comment on above: Performed By: #### C BCDIF, HBA1C, VITD, CMP, LIPB #### [facility] [address] [place] [address] Lymphocytes (Bld) [#/Vol] 2.34 10*3/uL Normal 1.00-4.00 [facility] Comment on above: Performed By: #### C BCDIF, HBA1C, VITD, CMP, LIPB #### [facility] [address] [place] [phone] Lymphocytes/100 WBC (Bld) 27.8 % Normal [facility] Comment on above: Performed By: #### C BCDIF, HBA1C, VITD, CMP, LIPB #### [facility] [address] [place] [address] MCH (RBC) [Entitic mass] 31.4 pG Normal 26.0-34.0 [facility] Comment on above: Performed By: #### C BCDIF, HBA1C, VITD, CMP, LIPB #### [facility] [address] [place] [address] MCHC (RBC) [Mass/Vol] 32.3 g/dL Normal 30.5-36.0 [facility] Reference Lab Comment on above: Performed By: #### C BCDIF, HBA1C, VITD, CMP, LIPB #### [facility] [address] [place] [address] MCV (RBC) [Entitic vol] 97.3 fL Normal 80.0-100.0 [facility] Reference Lab Comment on above: Performed By: #### C BCDIF, HBA1C, VITD, CMP, LIPB #### [facility] [address] [place] [address] Monocytes/100 WBC (Bld) 6.9 % Normal [facility] Reference Lab Comment on above: Performed By: #### C BCDIF, HBA1C, VITD, CMP, LIPB #### [facility] [address] [place] [address] Neutrophils/100 WBC (Bld) 63.4 % Normal [facility] Comment on above: Performed By: #### C BCDIF, HBA1C, VITD, CMP, LIPB #### [facility] [address] [place] [address] NRBCs 0.0 /100 WBC Normal 0 [facility] Comment on above: Performed By: #### C BCDIF, HBA1C, VITD, CMP, LIPB #### [facility] [address] [place] [address] Platelet mean volume (Bld) [Entitic vol] 11.0 fL Normal 9.0-12.7 [facility] Comment on above: Performed By: #### C BCDIF, HBA1C, VITD, CMP, LIPB #### [facility] [address] [place], [place] [address] Platelets (Bld) [#/Vol] 175 10*3/uL Normal 150-400 [facility] Comment on above: Performed By: #### C BCDIF, HBA1C, VITD, CMP, LIPB #### [facility] [address] [place], [place] [address] RBC (Bld) [#/Vol] 4.87 10*6/uL Normal 4.20-6.00 [facility] Reference Lab Comment on above: Performed By: #### C BCDIF, HBA1C, VITD, CMP, LIPB #### [facility] [address] [place] [address] WBC (Bld) [#/Vol] 8.41 10*3/uL Normal 3.70-11.00 [facility] Reference Lab Comment on above: Performed By: #### C BCDIF, HBA1C, VITD, CMP, LIPB #### [facility] [address] [place] [address] Comp Metabolic Panelon 05-16 Albumin [Mass/Vol] 4.7 g/dL Normal 3.9-4.9 [facility] Reference Lab Comment on above: Performed By: #### C BCDIF, FT4, CMP, LIPB, TSH, HBA1C, VITD #### [facility] [address] [place] [phone] ALP [Catalytic activity/Vol] 58 U/L Normal 38-113 [facility] Comment on above: Performed By: #### C BCDIF, FT4, CMP, LIPB, TSH, HBA1C, VITD #### [facility] [address] [place], [place] [phone] ALT [Catalytic activity/Vol] 59 U/L High 10-54 [facility] Comment on above: Performed By: #### C BCDIF, FT4, CMP, LIPB, TSH, HBA1C, VITD #### [facility] [address] [place], [place] [address] Anion gap [Moles/Vol] 15 mmol/L Normal 9-18 [facility] Reference Lab Comment on above: Performed By: #### C BCDIF, FT4, CMP, LIPB, TSH, HBA1C, VITD #### [facility] [address] [place], [place] [address] AST [Catalytic activity/Vol] 51 U/L High 14-40 [facility] Comment on above: Performed By: #### C BCDIF, FT4, CMP, LIPB, TSH, HBA1C, VITD #### [facility] [address] [place] [address] Bilirubin Ql (U) 0.6 mg/dL Normal 0.2-1.3 [facility] Reference Lab Comment on above: Performed By: #### C BCDIF, FT4, CMP, LIPB, TSH, HBA1C, VITD #### [facility] [address] [place] [address] Calcium [Mass/Vol] 10.2 mg/dL Normal 8.5-10.2 [facility] Reference Lab Comment on above: Performed By: #### C BCDIF, FT4, CMP, LIPB, TSH, HBA1C, VITD #### [facility] [address] [place], [place] [address] Chloride [Moles/Vol] 97 mmol/L Normal 97-105 [facility] Reference Lab Comment on above: Performed By: #### C BCDIF, FT4, CMP, LIPB, TSH, HBA1C, VITD #### [facility] [address] [place], [place] [address] CO2 [Moles/Vol] 24 mmol/L Normal 22-30 [facility] Comment on above: Performed By: #### C BCDIF, FT4, CMP, LIPB, TSH, HBA1C, VITD #### [facility]ine Lab [address] [place], [place] [address] Creatinine [Mass/Vol] 1.15 mg/dL Normal 0.73-1.22 [facility] Reference Lab Comment on above: Performed By: #### C BCDIF, FT4, CMP, LIPB, TSH, HBA1C, VITD #### [facility] [address] [place], [place] [address] eGFR- Amer. >60 Normal [facility] Reference Lab Comment on above: Performed By: #### C BCDIF, FT4, CMP, LIPB, TSH, HBA1C, VITD #### [facility] [address] [place], [place] [address] GFR/1.73 sq M predicted among non-blacks MDRD (S/P/Bld) [Vol rate/Area] mL/min/{1.73_m2} Normal [facility] Comment on above: Performed By: #### C BCDIF, FT4, CMP, LIPB, TSH, HBA1C, VITD #### [facility] [address] [place], [place] [address] Glucose [Mass/Vol] 172 mg/dL High 74-99 [facility] Reference Lab Comment on above: Performed By: #### C BCDIF, FT4, CMP, LIPB, TSH, HBA1C, VITD #### [facility] [address] [place], [place] [address] Potassium [Moles/Vol] 4.1 mmol/L Normal 3.7-5.1 [facility] Reference Lab Comment on above: Performed By: #### C BCDIF, FT4, CMP, LIPB, TSH, HBA1C, VITD #### [facility] [address] [place], [place] [address] Protein [Mass/Vol] 7.8 g/dL Normal 6.3-8.0 [facility] Reference Lab Comment on above: Performed By: #### C BCDIF, FT4, CMP, LIPB, TSH, HBA1C, VITD #### [facility] [address] [place], [place] [phone] Sodium [Moles/Vol] 136 mmol/L Normal 136-144 [facility] Reference Lab Comment on above: Performed By: #### C BCDIF, FT4, CMP, LIPB, TSH, HBA1C, VITD #### [facility] [address] [place] [address] Urea nitrogen [Mass/Vol] 15 mg/dL Normal 9-24 [facility] Comment on above: Performed By: #### C BCDIF, FT4, CMP, LIPB, TSH, HBA1C, VITD #### [facility] [address] [place] [address] Hemoglobin A1con 05-16-2019 HbA1c (Bld) [Mass fraction] 137 mg/dL Normal [facility] Comment on above: Performed By: #### C BCDIF, HBA1C, VITD, CMP, LIPB #### [facility] [address] [place] [address] HbA1c (Bld) [Mass fraction] 6.4 % High 4.3-5.6 [facility] Comment on above: Performed By: #### C BCDIF, HBA1C, VITD, CMP, LIPB #### [facility] [address] [place] [address] Lipid Panel, Basicon 019 Cholesterol [Mass/Vol] 162 mg/dL Normal <200 [facility] Reference Lab Comment on above: Performed By: #### C BCDIF, FT4, CMP, LIPB, TSH, HBA1C, VITD #### [facility] [address] [place], [place] [address] Cholesterol in HDL [Mass/Vol] 33 mg/dL Low >39 [facility] Comment on above: Performed By: #### C BCDIF, FT4, CMP, LIPB, TSH, HBA1C, VITD #### [facility] [address] [place], [place] [address] Cholesterol in LDL [Mass/Vol] 94 mg/dL Normal <100 [facility] Comment on above: Performed By: #### C BCDIF, FT4, CMP, LIPB, TSH, HBA1C, VITD #### [facility] [address] [place] [address] Cholesterol in VLDL [Mass/Vol] 35 mg/dL High <30 [facility] Comment on above: Performed By: #### C BCDIF, FT4, CMP, LIPB, TSH, HBA1C, VITD #### [facility] [address] [place] [address] Cholesterol non HDL [Mass/Vol] 129 mg/dL Normal <130 [facility] Comment on above: Performed By: #### C BCDIF, FT4, CMP, LIPB, TSH, HBA1C, VITD #### [facility] [address] [place] [address] LDL:HDL Ratio 2.85 High <2.54 [facility] Comment on above: Performed By: #### C BCDIF, FT4, CMP, LIPB, TSH, HBA1C, VITD #### [facility] [address] [place] [id number] TC:HDL Ratio 4.91 Normal <5.10 [facility] Comment on above: Performed By: #### C BCDIF, FT4, CMP, LIPB, TSH, HBA1C, VITD #### [facility] [address] [place] [address] Triglyceride [Mass/Vol] 176 mg/dL High <150 [facility] Reference Lab Comment on above: Performed By: #### C BCDIF, FT4, CMP, LIPB, TSH, HBA1C, VITD #### [facility] Routine Lab [address] [address] Fasting Time 12 hrs Normal [facility] Reference Lab Comment on above: Performed By: #### C BCDIF, FT4, CMP, LIPB, TSH, HBA1C, VITD #### [facility] Routine Lab [address] [phone] Vitamin D 25 Hydroxyon 05-16 Vitamin D 25 Hydroxy 66.1 ng/mL Normal 31.0-80.0 [facility] Reference Lab Comment on above: Performed By: #### C BCDIF, FT4, CMP, LIPB, TSH, HBA1C, VITD #### [facility] Routine Lab [address] [place] [phone] Albumin/Creat Ratioon 2018 Albumin Urine Random 25.5 mg/L High 0.0-23.0 [facility] Reference Lab Comment on above: Performed By: #### U ACR #### [facility] Routine Lab [address] [place] [phone] Albumin/Creat Ratio 21 mg/g Normal 0-30 [facility] Reference Lab Comment on above: Performed By: #### U ACR #### [facility] Routine Lab [address] [place] [address] Creatinine,Urine,Ran 122.7 mg/dL Normal 20-300 [facility] Reference Lab Comment on above: Performed By: #### U ACR #### [facility] Routine Lab [address] [place] [phone] CBC and Differentialon 02-13 Abs Baso 0.07 k/uL Normal <0.11 [facility] Reference Lab Comment on above: Performed By: #### C BCDIF, FT4, CMP, LIPB, TSH, HBA1C, VITD #### [facility] Routine Lab [address] [address] Abs Guayanilla 0.64 k/uL Normal <0.87 [facility] Reference Lab Comment on above: Performed By: #### C BCDIF, FT4, CMP, LIPB, TSH, HBA1C, VITD #### [facility] Routine Lab [address] [phone] Abs Neut 6.07 k/uL Normal 1.45-7.50 [facility] Reference Lab Comment on above: Performed By: #### C BCDIF, FT4, CMP, LIPB, TSH, HBA1C, VITD #### [facility] Routine Lab [address] [place] [phone] Absolute nRBC <0.01 Normal <0.01 [facility] Reference Lab Comment on above: Performed By: #### C BCDIF, FT4, CMP, LIPB, TSH, HBA1C, VITD #### [facility] Routine Lab [address] [place] [phone] Basophils/100 WBC (Bld) 0.7 % Normal [facility] Reference Lab Comment on above: Performed By: #### C BCDIF, FT4, CMP, LIPB, TSH, HBA1C, VITD #### [facility] Routine Lab [address] [place] [phone] DTYPE ADIFF Normal [facility] Reference Lab Comment on above: Performed By: #### C BCDIF, FT4, CMP, LIPB, TSH, HBA1C, VITD #### [facility] Routine Lab [address] [place] [phone] Eosinophils (Bld) [#/Vol] 0.17 10*3/uL Normal <0.46 [facility] Reference Lab Comment on above: Performed By: #### C BCDIF, FT4, CMP, LIPB, TSH, HBA1C, VITD #### [facility] Routine Lab [address] [place] [phone] Eosinophils/100 WBC (Bld) 1.6 % Normal [facility] Reference Lab Comment on above: Performed By: #### C BCDIF, FT4, CMP, LIPB, TSH, HBA1C, VITD #### [facility] Routine Lab [address] [address] Erythrocyte distribution width (RBC) [Ratio] 13.5 % Normal 11.5-15.0 [facility] Reference Lab Comment on above: Performed By: #### C BCDIF, FT4, CMP, LIPB, TSH, HBA1C, VITD #### [facility] Routine Lab [address] [address] Hematocrit (Bld) [Volume fraction] 44.1 % Normal 39.0-51.0 [facility] Reference Lab Comment on above: Performed By: #### C BCDIF, FT4, CMP, LIPB, TSH, HBA1C, VITD #### [facility] Routine Lab [address] [place] [address] Hemoglobin (Bld) [Mass/Vol] 14.5 g/dL Normal 13.0-17.0 [facility] Reference Lab Comment on above: Performed By: #### C BCDIF, FT4, CMP, LIPB, TSH, HBA1C, VITD #### [facility] Routine Lab [address] [place] [address] Lymphocytes (Bld) [#/Vol] 3.45 10*3/uL Normal 1.00-4.00 [facility] Reference Lab Comment on above: Performed By: #### C BCDIF, FT4, CMP, LIPB, TSH, HBA1C, VITD #### [facility] Routine Lab [facility] [address] Lymphocytes/100 WBC (Bld) 33.2 % Normal [facility] Reference Lab Comment on above: Performed By: #### C BCDIF, FT4, CMP, LIPB, TSH, HBA1C, VITD #### [facility] Routine Lab [address] [address] MCH (RBC) [Entitic mass] 31.1 pG Normal 26.0-34.0 [facility] Reference Lab Comment on above: Performed By: #### C BCDIF, FT4, CMP, LIPB, TSH, HBA1C, VITD #### [facility] Routine Lab [address] [place], [place] [address] MCHC (RBC) [Mass/Vol] 32.9 g/dL Normal 30.5-36.0 [facility] Reference Lab Comment on above: Performed By: #### C BCDIF, FT4, CMP, LIPB, TSH, HBA1C, VITD #### [facility] Routine Lab [address] [phone] MCV (RBC) [Entitic vol] 94.6 fL Normal 80.0-100.0 [facility] Reference Lab Comment on above: Performed By: #### C BCDIF, FT4, CMP, LIPB, TSH, HBA1C, VITD #### [facility] Routine Lab [address] [place], [place] [address] Monocytes/100 WBC (Bld) 6.2 % Normal [facility] Reference Lab Comment on above: Performed By: #### C BCDIF, FT4, CMP, LIPB, TSH, HBA1C, VITD #### [facility] Routine Lab [address] [place], [place] [address] Neutrophils/100 WBC (Bld) 58.3 % Normal [facility] Reference Lab Comment on above: Performed By: #### C BCDIF, FT4, CMP, LIPB, TSH, HBA1C, VITD #### [facility] Routine Lab [address] [place], [place] [address] NRBCs 0.0 /100 WBC Normal 0 [facility] Reference Lab Comment on above: Performed By: #### C BCDIF, FT4, CMP, LIPB, TSH, HBA1C, VITD #### [facility] Routine Lab [address] [place], [place] [address] Platelet mean volume (Bld) [Entitic vol] 11.3 fL Normal 9.0-12.7 [facility] Reference Lab Comment on above: Performed By: #### C BCDIF, FT4, CMP, LIPB, TSH, HBA1C, VITD #### [facility] Routine Lab [address] [place], [place] [address] Platelets (Bld) [#/Vol] 191 10*3/uL Normal 150-400 [facility] Reference Lab Comment on above: Performed By: #### C BCDIF, FT4, CMP, LIPB, TSH, HBA1C, VITD #### [facility] Routine Lab [address] [place], [place] [address] RBC (Bld) [#/Vol] 4.66 10*6/uL Normal 4.20-6.00 [facility] Reference Lab Comment on above: Performed By: #### C BCDIF, FT4, CMP, LIPB, TSH, HBA1C, VITD #### [facility] Routine Lab [address] [place], [place] [address] WBC (Bld) [#/Vol] 10.40 10*3/uL Normal 3.70-11.00 [facility] Reference Lab Comment on above: Performed By: #### C BCDIF, FT4, CMP, LIPB, TSH, HBA1C, VITD #### [facility] Routine Lab [address] [place], [place] [address] Comp Metabolic Panelon 02-13 Albumin [Mass/Vol] 4.7 g/dL Normal 3.9-4.9 [facility] Reference Lab Comment on above: Performed By: #### C BCDIF, FT4, CMP, LIPB, TSH, HBA1C, VITD #### [facility] Routine Lab [address] [place], [place] [phone] ALP [Catalytic activity/Vol] 62 U/L Normal 38-113 [facility] Reference Lab Comment on above: Performed By: #### C BCDIF, FT4, CMP, LIPB, TSH, HBA1C, VITD #### [facility] Routine Lab [address] [place], [place] [address] ALT [Catalytic activity/Vol] 36 U/L Normal 10-54 [facility] Reference Lab Comment on above: Performed By: #### C BCDIF, FT4, CMP, LIPB, TSH, HBA1C, VITD #### [facility] Routine Lab [address] [place], [place] [address] Anion gap [Moles/Vol] 13 mmol/L Normal 9-18 [facility] Reference Lab Comment on above: Performed By: #### C BCDIF, FT4, CMP, LIPB, TSH, HBA1C, VITD #### [facility] Routine Lab [address] [address] AST [Catalytic activity/Vol] 28 U/L Normal 14-40 [facility] Reference Lab Comment on above: Performed By: #### C BCDIF, FT4, CMP, LIPB, TSH, HBA1C, VITD #### [facility] Routine Lab [address] [place] [address] Bilirubin Ql (U) 0.5 mg/dL Normal 0.2-1.3 [facility] Reference Lab Comment on above: Performed By: #### C BCDIF, FT4, CMP, LIPB, TSH, HBA1C, VITD #### [facility] Routine Lab [address] [phone] Calcium [Mass/Vol] 9.8 mg/dL Normal 8.5-10.2 [facility] Reference Lab Comment on above: Performed By: #### C BCDIF, FT4, CMP, LIPB, TSH, HBA1C, VITD #### [facility] Routine Lab [address] [place], [place] [address] Chloride [Moles/Vol] 99 mmol/L Normal 97-105 [facility] Reference Lab Comment on above: Performed By: #### C BCDIF, FT4, CMP, LIPB, TSH, HBA1C, VITD #### [facility] Routine Lab [address] [place], [place] [address] CO2 [Moles/Vol] 26 mmol/L Normal 22-30 [facility] Reference Lab Comment on above: Performed By: #### C BCDIF, FT4, CMP, LIPB, TSH, HBA1C, VITD #### [facility] Routine Lab [address] [place], [place] [address] Creatinine [Mass/Vol] 0.96 mg/dL Normal 0.73-1.22 [facility] Reference Lab Comment on above: Performed By: #### C BCDIF, FT4, CMP, LIPB, TSH, HBA1C, VITD #### [facility] Routine Lab [address] [place], [place] [address] eGFR- Amer. >60 Normal [facility] Reference Lab Comment on above: Performed By: #### C BCDIF, FT4, CMP, LIPB, TSH, HBA1C, VITD #### [facility] Routine Lab [address] [place], [place] [address] GFR/1.73 sq M predicted among non-blacks MDRD (S/P/Bld) [Vol rate/Area] mL/min/{1.73_m2} Normal [facility] Reference Lab Comment on above: Performed By: #### C BCDIF, FT4, CMP, LIPB, TSH, HBA1C, VITD #### [facility] Routine Lab [address] [place], [place] [address] Glucose [Mass/Vol] 145 mg/dL High 74-99 [facility] Reference Lab Comment on above: Performed By: #### C BCDIF, FT4, CMP, LIPB, TSH, HBA1C, VITD #### [facility] Routine Lab [address] [place], [place] [address] Potassium [Moles/Vol] 4.1 mmol/L Normal 3.7-5.1 [facility] Reference Lab Comment on above: Performed By: #### C BCDIF, FT4, CMP, LIPB, TSH, HBA1C, VITD #### [facility] Routine Lab [address] [place], [place] [address] Protein [Mass/Vol] 7.6 g/dL Normal 6.3-8.0 [facility] Reference Lab Comment on above: Performed By: #### C BCDIF, FT4, CMP, LIPB, TSH, HBA1C, VITD #### [facility] Routine Lab [address] [address] Sodium [Moles/Vol] 138 mmol/L Normal 136-144 [facility] Reference Lab Comment on above: Performed By: #### C BCDIF, FT4, CMP, LIPB, TSH, HBA1C, VITD #### [facility] Routine Lab [address] [place] [address] Urea nitrogen [Mass/Vol] 13 mg/dL Normal 9-24 [facility] Reference Lab Comment on above: Performed By: #### C BCDIF, FT4, CMP, LIPB, TSH, HBA1C, VITD #### [facility] Routine Lab [address] [place] [address] Free T4on 02-13-2019 Free T4 [Mass/Vol] 1.1 ng/dL Normal 0.9-1.7 [facility] Reference Lab Comment on above: Performed By: #### C BCDIF, FT4, CMP, LIPB, TSH, HBA1C, VITD #### [facility] Routine Lab [address] [place] [address] Hemoglobin A1con 02-13-2019 HbA1c (Bld) [Mass fraction] 6.6 % High 4.3-5.6 [facility] Reference Lab Comment on above: Performed By: #### C BCDIF, FT4, CMP, LIPB, TSH, HBA1C, VITD #### [facility] Routine Lab [address] [address] HbA1c (Bld) [Mass fraction] 143 mg/dL Normal [facility] Reference Lab Comment on above: Performed By: #### C BCDIF, FT4, CMP, LIPB, TSH, HBA1C, VITD #### [facility] Routine Lab [address] [place], [place] [address] Lipid Panel, Basicon 019 Cholesterol [Mass/Vol] 144 mg/dL Normal <200 [facility] Reference Lab Comment on above: Performed By: #### C BCDIF, FT4, CMP, LIPB, TSH, HBA1C, VITD #### [facility] Routine Lab [address] [place], [place] [address] Cholesterol in HDL [Mass/Vol] 42 mg/dL Normal >39 [facility] Reference Lab Comment on above: Performed By: #### C BCDIF, FT4, CMP, LIPB, TSH, HBA1C, VITD #### [facility] Routine Lab [address] [place], [place] [address] Cholesterol in LDL [Mass/Vol] 79 mg/dL Normal <100 [facility] Reference Lab Comment on above: Performed By: #### C BCDIF, FT4, CMP, LIPB, TSH, HBA1C, VITD #### [facility] Routine Lab [address] [place], [place] [address] Cholesterol in VLDL [Mass/Vol] 23 mg/dL Normal <30 [facility] Reference Lab Comment on above: Performed By: #### C BCDIF, FT4, CMP, LIPB, TSH, HBA1C, VITD #### [facility] Routine Lab [address] [place], [place] [address] Cholesterol non HDL [Mass/Vol] 102 mg/dL Normal <130 [facility] Reference Lab Comment on above: Performed By: #### C BCDIF, FT4, CMP, LIPB, TSH, HBA1C, VITD #### [facility] Routine Lab [address] [place], [place] [address] LDL:HDL Ratio 1.88 Normal <2.54 [facility] Reference Lab Comment on above: Performed By: #### C BCDIF, FT4, CMP, LIPB, TSH, HBA1C, VITD #### [facility] Routine Lab [address] [place], [place] [address] TC:HDL Ratio 3.43 Normal <5.10 [facility] Reference Lab Comment on above: Performed By: #### C BCDIF, FT4, CMP, LIPB, TSH, HBA1C, VITD #### [facility] Routine Lab [address] [address] Triglyceride [Mass/Vol] 117 mg/dL Normal <150 [facility] Reference Lab Comment on above: Performed By: #### C BCDIF, FT4, CMP, LIPB, TSH, HBA1C, VITD #### [facility] Routine Lab [address] [address] Fasting Time UN Normal [facility] Reference Lab Comment on above: Performed By: #### C BCDIF, FT4, CMP, LIPB, TSH, HBA1C, VITD #### [facility] Routine Lab [address] [address] TSHon 02-13-2019 TSH Qn 1.590 uU/mL Normal 0.400-5.50 0 [facility] Reference Lab Comment on above: Performed By: #### C BCDIF, FT4, CMP, LIPB, TSH, HBA1C, VITD #### [facility] Routine Lab [address] [address] Vitamin D 25 Hydroxyon 02-13 Vitamin D 25 Hydroxy 56.7 ng/mL Normal 31.0-80.0 [facility] Reference Lab Comment on above: Performed By: #### C BCDIF, FT4, CMP, LIPB, TSH, HBA1C, VITD #### [facility] Routine Lab [address] [address] Office Visiton 06-08-2017 Fall risk assessment Yes Invalid Interpretation Code [facility] Work Phone: Office Visiton 07-05-2016 Protein mass conc Done Invalid Interpretation Code [facility] Work Phone: Tobacco smoking status NHIS Former smoker Invalid Interpretation Code [facility] Work Phone: Office Visiton 06-30-2015 cardiac risk group C Invalid Interpretation Code [facility] Work Phone: [phone] General cardiovascular disease 10Y risk [#] Thorndike.D'Agostchapo N/A Invalid Interpretation Code [facility] Work Phone: [phone] Lab Reporton 03-06-2014 Anion gap 4 molar conc 15 Invalid Interpretation Code [facility] Work Phone: [phone] Calcium mass conc 10.1 mg/dL Invalid Interpretation Code [facility] Work Phone: [phone] Chloride molar conc 100 mmol/L Invalid Interpretation Code [facility] Work Phone: [phone] CO2 ppres (BldV) 22 mmol/L Invalid Interpretation Code [facility] Work Phone: [phone] Creatinine mass conc 0.99 mg/dL Invalid Interpretation Code [facility] Work Phone: [phone] Glucose mass conc 135 mg/dL Invalid Interpretation Code [facility] Work Phone: [phone] Potassium molar conc 4.2 mmol/L Invalid Interpretation Code [facility] Work Phone: [phone] Sodium molar conc 137 mmol/L Invalid Interpretation Code [facility] Work Phone: [phone] Urea nitrogen mass conc 18 mg/dL Invalid Interpretation Code [facility] Work Phone: [phone] Lab Report: [id number] GFR/1.73 sq M predicted among non-blacks MDRD vol rate/area (S/P/Bld) 85 mL/min/{1.73_m2} Normal >[address] [facility] Work Phone: [phone] GFRAA 103 mL/min Normal >60 [facility] Work Phone: [phone] Urea nitrogen/Creatinine mass ratio 22.0 RATIO High 10-20 [facility] Work Phone: [phone] Lab Report: MGon 02-26-2014 Magnesium mass conc 1.5 mg/dL Low 1.8-2.4 [facility] Work Phone: [phone] Lab Report: [id number] T4 mass conc 6.7 ug/dL Normal 4.5-12.1 [facility] Work Phone: Lab Report: TSHon 02-26-2014 Thyrotropin Qn 1.31 u[iU]/mL Normal 0.358-3.74 [facility] Work Phone: [phone] Clinical Lists Update: Prelo clinical trial data manager 03-08-2011 Hematocrit Auto Volume Fraction (Bld) 37.6 % Invalid Interpretation Code [facility] Work Phone: [phone] Hemoglobin mass conc (Bld) 12.6 g/dL Invalid Interpretation Code [facility] Work Phone: [phone] Platelets Auto #/vol (Bld) 200 10*3/mm3 Invalid Interpretation Code [facility] Work Phone: [phone] RBC Auto #/vol (Bld) 3.83 10*6/uL Invalid Interpretation Code [facility] Work Phone: [phone] WBC Auto #/vol (Bld) 10.8 10*3/uL Invalid Interpretation Code [facility] [employer] [facility] Work Phone: [phone] OCT OPTIC NERVE CIRRUS OU (B OTH EYES) [facility] Vital Signs Date Time Vital Sign Value Performing Clinician Faci lity 03-24-2025 11:02-0400 Body mass index (BMI) [Ratio] 24.98 kg/m2 Alis Chua APRN.EVA Work Phone: [facility] 03-24-2025 11:02-0400 Body weight 80.5 kg Alis Chua APRN.TRAFFIC OFFICER Work Phone: [facility] 03-24-2025 11:02-0400 Diastolic blood pressure 74 mm[Hg] Alis Chua APRN.TRAFFIC OFFICER Work Phone: [facility] 03-24-2025 11:02-0400 Heart rate 101 /min Alis Chua APRN.TRAFFIC OFFICER Work Phone: [facility] 03-24-2025 11:02-0400 Respiratory rate 14 /min Alis Chua APRN.TRAFFIC OFFICER Work Phone: [facility] 03-24-2025 11:02-0400 SaO2% (BldA) [Mass fraction] 98 % Alis Chua APRN.TRAFFIC OFFICER Work Phone: [facility] 03-24-2025 11:02-0400 Systolic blood pressure 118 mm[Hg] Alis Chua APRN.TRAFFIC OFFICER Work Phone: [facility] 03-16-2025 21:29-0400 Body temperature 98.3 [degF] Dr. Lobito Maldonado MD Work Phone: [facility] 03-16-2025 21:29-0400 Diastolic blood pressure 104 mm[Hg] Dr. Lobito Maldonado MD Work Phone: [phone] [place] [address] 03-16-2025 21:29-0400 Heart rate 92 /min Dr. Lobito Maldonado MD Work Phone: [phone])958-791996 [place] [address] 03-16-2025 21:29-0400 Respiratory rate 20 /min Dr. Lobito Maldonado MD Work Phone: [phone])[phone] [place] [address] 03-16-2025 21:29-0400 SaO2% (BldA) [Mass fraction] 99 % Dr. Lobito Maldonado MD Work Phone: [phone])485-142996 [place] [address] 03-16-2025 21:29-0400 Systolic blood pressure 144 mm[Hg] Dr. Lobito Maldonado MD Work Phone: 7(505)491-875596 [place] [address] 03-16-2025 18:28-0400 Body height 175.[address] Lobito Maldonado MD Work Phone: 4(498)859-568296 [place] [address] 03-16-2025 18:28-0400 Body mass index (BMI) [Ratio] 26 kg/m2 Dr. Lobito Maldonado MD Work Phone: 5(799)179-759396 [place] [address] 03-16-2025 18:28-0400 Body weight 80.[address] Lobito Maldonado MD Work Phone: 7(121)263-176896 [place] [address] 02-13-2025 13:39-0400 Body height 175.[address] Lobito Maldonado MD Work Phone: 3([phone] [place] [address] 02-13-2025 13:39-0400 Body mass index (BMI) [Ratio] 26.1 kg/m2 Dr. Lobito Maldonado MD Work Phone: 4(039)507-088996 [place] [address] 02-13-2025 13:39-0400 Body temperature 97.3 [degF] Dr. Lobito Maldonado MD Work Phone: 2(861)727-982416 [place] [address] 02-13-2025 13:39-0400 Body weight 80.[address] Lobito Maldonado MD Work Phone: 5(122)969-855416 [place] [address] 02-13-2025 13:39-0400 Diastolic blood pressure 71 mm[Hg] Dr. Lobito Maldonado MD Work Phone: 1(692)116-025816 [place] [address] 02-13-2025 13:39-0400 Heart rate 97 /min Dr. Lobito Maldonado MD Work Phone: 6(349)[phone] [place] [address] 02-13-2025 13:39-0400 Respiratory rate 16 /min Dr. Lobito Maldonado MD Work Phone: 8(627)944-585316 [place] [address] 02-13-2025 13:39-0400 SaO2% (BldA) [Mass fraction] 96 % Dr. Lobito Maldonado MD Work Phone: 0(128)153-162916 [place] [address] 02-13-2025 13:39-0400 Systolic blood pressure 104 mm[Hg] Dr. Lobito Maldonado MD Work Phone: 5(996)[phone] [place] [address] 10-24-2024 13:25-0500 Body mass index (BMI) [Ratio] 25.69 kg/m2 Lobito Maldonado MD Work Phone: [facility] 10-24-2024 13:25-0500 Body temperature 97.81 [degF] Lobito Maldonado MD Work Phone: [facility] 10-24-2024 13:25-0500 Body weight 81.2 kg Lobito Maldonado MD Work Phone: [facility] 10-24-2024 13:25-0500 Diastolic blood pressure 70 mm[Hg] Lobito Maldonado MD Work Phone: [facility] 10-24-2024 13:25-0500 Heart rate 108 /min Lobito Maldonado MD Work Phone: [facility] 10-24-2024 13:25-0500 Respiratory rate 20 /min Lobito Maldonado MD Work Phone: [facility] 10-24-2024 13:25-0500 Systolic blood pressure 104 mm[Hg] Lobito Maldonado MD Work Phone: [facility] 07-03-2024 13:42-0400 Body mass index (BMI) [Ratio] 25.69 kg/m2 Lobito Maldonado MD Work Phone: [facility] 07-03-2024 13:42-0400 Body temperature 98.8 [degF] Lobito Maldonado MD Work Phone: [facility] 07-03-2024 13:42-0400 Body weight 81.2 kg Lobito Maldonado MD Work Phone: [facility] 07-03-2024 13:42-0400 Diastolic blood pressure 66 mm[Hg] Lobito Maldonado MD Work Phone: [facility] 07-03-2024 13:42-0400 Heart rate 112 /min Lobito Maldonado MD Work Phone: [facility] 07-03-2024 13:42-0400 SaO2% (BldA) [Mass fraction] 100 % Lobito Maldonado MD Work Phone: [facility] 07-03-2024 13:42-0400 Systolic blood pressure 110 mm[Hg] Lobito Maldonado MD Work Phone: [facility] 02-05-2024 13:26-0400 Body mass index (BMI) [Ratio] 25.25 kg/m2 Alis Chua APRN.TRAFFIC OFFICER Work Phone: [facility] 02-05-2024 13:26-0400 Body weight 79.83 kg Alis Chua APRN.TRAFFIC OFFICER Work Phone: [facility] 02-05-2024 13:26-0400 Diastolic blood pressure 74 mm[Hg] Alis Toma COMPRESSOR OPERATOR ADJUSTER.TRAFFIC OFFICER Work Phone: [facility] 02-05-2024 13:26-0400 Heart rate 124 /min Alis Toma COMPRESSOR OPERATOR ADJUSTER.TRAFFIC OFFICER Work Phone: [facility] 02-05-2024 13:26-0400 Respiratory rate 16 /min Alis Toma COMPRESSOR OPERATOR ADJUSTER.TRAFFIC OFFICER Work Phone: [facility] 02-05-2024 13:26-0400 SaO2% (BldA) [Mass fraction] 95 % Alis Toma COMPRESSOR OPERATOR ADJUSTER.TRAFFIC OFFICER Work Phone: [facility] 02-05-2024 13:26-0400 Systolic blood pressure 106 mm[Hg] Alis Toma COMPRESSOR OPERATOR ADJUSTER.TRAFFIC OFFICER Work Phone: [facility] 01-08-2024 11:11-0400 Body height 177.[address] Lobito Maldonado Work Phone: [facility] 01-08-2024 11:11-0400 Body weight 84.[address] Lobito Maldonado Work Phone: [facility] 01-08-2024 08:10-0400 Body temperature 97.9 [degF] Dr. Lobito Maldonado Work Phone: [facility] 01-08-2024 08:10-0400 Diastolic blood pressure 85 mm[Hg] Dr. Lobito Maldonado Work Phone: [facility] 01-08-2024 08:10-0400 Heart rate 91 /min Dr. Lobito Maldonado Work Phone: [facility] 01-08-2024 08:10-0400 Respiratory rate 15 /min Dr. Lobito Maldonado Work Phone: [facility] 01-08-2024 08:10-0400 SaO2% (BldA) [Mass fraction] 96 % Dr. Lobito Maldonado Work Phone: [phone])472-872596 [place] [address] 01-08-2024 08:10-0400 Systolic blood pressure 131 mm[Hg] Dr. Lobito Maldonado Work Phone: 1(111)286-492116 [place] [address] 01-07-2024 08:32-0400 Body mass index (BMI) [Ratio] 26.6 kg/m2 Dr. Lobito Maldonado Work Phone: 3(008)700-639716 [place] [address] 01-07-2024 08:01-0400 Body temperature 98.9 [degF] Dr. Lobito Maldonado Work Phone: 3(817)394-189316 [place] [address] 01-07-2024 08:01-0400 Diastolic blood pressure 81 mm[Hg] Dr. Lobito Maldonado Work Phone: 5(785)518-954816 [place] [address] 01-07-2024 08:01-0400 Heart rate 94 /min Dr. Lobito Maldonado Work Phone: [phone])371-944816 [address] [place], [place] [address] 01-07-2024 08:01-0400 Respiratory rate 18 /min Dr. Lobito Maldonado Work Phone: 6(762)298-625816 [place] [address] 01-07-2024 08:01-0400 SaO2% (BldA) [Mass fraction] 97 % Dr. Lobito Maldonado Work Phone: 0(305)668-040016 [place] [address] 01-07-2024 08:01-0400 Systolic blood pressure 130 mm[Hg] Dr. Lobito Maldonado Work Phone: 1(828)654-852396 [place] [address] 01-07-2024 02:54-0400 Body height 175.[address] Lobito Maldonado Work Phone: 4(043)422-822016 [place] [address] 01-07-2024 02:54-0400 Body mass index (BMI) [Ratio] 28 kg/m2 Dr. Lobito Maldonado Work Phone: 2(282)756-197496 [place] [address] 01-07-2024 02:54-0400 Body weight 86.[address] Lobito Maldonado Work Phone: 4(447)204-513716 [place] [address] 11-20-2023 13:28-0500 Body temperature 97.4 [degF] Dr. Lobito Maldonado Work Phone: 4(594)501-216716 [place] [address] 11-20-2023 13:28-0500 Diastolic blood pressure 98 mm[Hg] Dr. Lobito Maldonado Work Phone: 6(812)399-586316 [place] [address] 11-20-2023 13:28-0500 Heart rate 90 /min Dr. Lobito Maldonado Work Phone: 6(875)030-196016 [place] [address] 11-20-2023 13:28-0500 Respiratory rate 18 /min Dr. Lobito Maldonado Work Phone: 0(066)088-413616 [place] [address] 11-20-2023 13:28-0500 SaO2% (BldA) [Mass fraction] 99 % Dr. Lobito Maldonado Work Phone: 5(949)467-086416 [place] [address] 11-20-2023 13:28-0500 Systolic blood pressure 149 mm[Hg] Dr. Lobito Maldonado Work Phone: 2(567)780-303816 [place] [address] 11-20-2023 11:14-0500 Body height 177.[address] Lobito Maldonado Work Phone: 0(754)970-216116 [place] [address] 11-20-2023 11:14-0500 Body mass index (BMI) [Ratio] 25.9 kg/m2 Dr. Lobito Maldonado Work Phone: 5(809)056-353616 [place] [address] 11-20-2023 11:14-0500 Body weight 82.[address] Lobito Maldonado Work Phone: 0(202)365-764016 [place] [address] 11-07-2023 10:21-0500 Diastolic blood pressure 88 mm[Hg] Dr. Lobito Maldonado Work Phone: 9(940)808-200416 [place] [address] 11-07-2023 10:21-0500 Heart rate 81 /min Dr. Lobito Maldonado Work Phone: 7(172)519-036716 [place] [address] 11-07-2023 10:21-0500 Respiratory rate 16 /min Dr. Lobito Maldonado Work Phone: 9(308)978-834916 [place] [address] 11-07-2023 10:21-0500 SaO2% (BldA) [Mass fraction] 95 % Dr. Lobito Maldonado Work Phone: 5(187)425-843416 [place] [address] 11-07-2023 10:21-0500 Systolic blood pressure 136 mm[Hg] Dr. Lobito Maldonado Work Phone: 7(052)684-386016 [place] [address] 11-07-2023 08:11-0500 Body height 177.[address] Lobito Maldonado Work Phone: 4(231)315-436616 [place] [address] 11-07-2023 08:11-0500 Body mass index (BMI) [Ratio] 27.3 kg/m2 Dr. Lobito Maldonado Work Phone: 1(693)588-810116 [place] [address] 11-07-2023 08:11-0500 Body temperature 98.4 [degF] Dr. Lobito Maldonado Work Phone: 3(430)760-334316 [place] [address] 11-07-2023 08:11-0500 Body weight 86.[address] Lobito Maldonado Work Phone: 5(472)072-075216 [place] [address] 10-23-2023 15:33-0500 Body mass index (BMI) [Ratio] 28.1 kg/m2 Dr. Lobito Maldonado Work Phone: 8(707)048-446016 [place] [address] 10-23-2023 15:33-0500 Body temperature 98.6 [degF] Dr. Lobito Maldonado Work Phone: 2(858)589-459716 [place] [address] 10-23-2023 15:33-0500 Body weight 86.[address] Lobito Maldonado Work Phone: 3(479)928-362616 [place] [address] 10-23-2023 15:33-0500 Diastolic blood pressure 80 mm[Hg] Dr. Lobito Maldonado Work Phone: 8(944)208-129616 [place] [address] 10-23-2023 15:33-0500 Heart rate 102 /min Dr. Lobito Maldonado Work Phone: 4(356)686-478216 [place] [address] 10-23-2023 15:33-0500 Respiratory rate 17 /min Dr. Lobito Maldonado Work Phone: 9(711)647-107716 [place] [address] 10-23-2023 15:33-0500 SaO2% (BldA) [Mass fraction] 96 % Dr. Lobito Maldonado Work Phone: 9(918)278-681916 [place] [address] 10-23-2023 15:33-0500 Systolic blood pressure 120 mm[Hg] Dr. Lobito Maldonado Work Phone: 5(473)984-578716 [place] [address] 10-10-2023 06:52-0500 Diastolic blood pressure 89 mm[Hg] Dr. Lobito Maldonado Work Phone: 8(332)581-875316 [place] [address] 10-10-2023 06:52-0500 Heart rate 89 /min Dr. Lobito Maldonado Work Phone: 0(997)753-530016 [place] [address] 10-10-2023 06:52-0500 Respiratory rate 16 /min Dr. Lobito Maldonado Work Phone: 9(424)276-803616 [place] [address] 10-10-2023 06:52-0500 SaO2% (BldA) [Mass fraction] 98 % Dr. Lobito Maldonado Work Phone: 3(353)853-332216 [place] [address] 10-10-2023 06:52-0500 Systolic blood pressure 140 mm[Hg] Dr. Lobito Maldonado Work Phone: 3(250)343-955116 [place] [address] 10-10-2023 04:32-0500 Body height 175.[address] Lobito Maldonado Work Phone: 8(270)095-671816 [place] [address] 10-10-2023 04:32-0500 Body mass index (BMI) [Ratio] 28.2 kg/m2 Dr. Lobito Maldonado Work Phone: 1(969)636-144616 [place] [address] 10-10-2023 04:32-0500 Body temperature 97.8 [degF] Dr. Lobito Maldonado Work Phone: 5(267)860-369716 [place] [address] 10-10-2023 04:32-0500 Body weight 86.[address] Lobito Maldonado Work Phone: 9(677)186-858516 [place] [address] 08-09-2023 05:35-0500 Diastolic blood pressure 69 mm[Hg] Dr. Lobito Maldonado Work Phone: 3(025)937-066016 [place] [address] 08-09-2023 05:35-0500 Heart rate 82 /min Dr. Lobito Maldonado Work Phone: 1(009)161-446216 [place] [address] 08-09-2023 05:35-0500 Respiratory rate 16 /min Dr. Lobito Maldonado Work Phone: 3(622)760-997616 [place] [address] 08-09-2023 05:35-0500 SaO2% (BldA) [Mass fraction] 98 % Dr. Lobito Maldonado Work Phone: 1(173)925-033016 [place] [address] 08-09-2023 05:35-0500 Systolic blood pressure 134 mm[Hg] Dr. Lobito Maldonado Work Phone: 6(171)948-006516 [place] [address] 08-09-2023 03:27-0500 Body height 177.[address] Lobito Maldonado Work Phone: 4(026)425-690716 [place] [address] 08-09-2023 03:27-0500 Body mass index (BMI) [Ratio] 27.3 kg/m2 Dr. Lobito Maldonado Work Phone: 1(858)668-590716 [place] [address] 08-09-2023 03:27-0500 Body temperature 97.3 [degF] Dr. Lobito Maldonado Work Phone: 0(729)583-821816 [place] [address] 08-09-2023 03:27-0500 Body weight 86.[address] Lobito Maldonado Work Phone: 5(553)951-808596 [place] [address] 06-09-2023 12:37-0400 Body weight 82.1 kg Alis Older COMPRESSOR OPERATOR ADJUSTER.TRAFFIC OFFICER Work Phone: [facility] 06-09-2023 12:37-0400 Diastolic blood pressure 84 mm[Hg] Alis Older COMPRESSOR OPERATOR ADJUSTER.TRAFFIC OFFICER Work Phone: [facility] 06-09-2023 12:37-0400 Heart rate 106 /min Alis Older COMPRESSOR OPERATOR ADJUSTER.TRAFFIC OFFICER Work Phone: [facility] 06-09-2023 12:37-0400 Respiratory rate 18 /min Alis Older COMPRESSOR OPERATOR ADJUSTER.TRAFFIC OFFICER Work Phone: [facility] 06-09-2023 12:37-0400 SaO2% (BldA) [Mass fraction] 96 % Alis Older COMPRESSOR OPERATOR ADJUSTER.TRAFFIC OFFICER Work Phone: [facility] 06-09-2023 12:37-0400 Systolic blood pressure 122 mm[Hg] Alis Older COMPRESSOR OPERATOR ADJUSTER.TRAFFIC OFFICER Work Phone: [facility] 05-04-2023 01:55-0400 Heart rate 86 /min Dr. Lobito Maldonado Work Phone: [facility] 05-04-2023 01:55-0400 Respiratory rate 18 /min Dr. Lobito Maldonado Work Phone: 2(412)594-652396 [place] [address] 05-04-2023 01:55-0400 SaO2% (BldA) [Mass fraction] 94 % Dr. Lobito Maldonado Work Phone: 1(577)189-497296 [place] [address] 05-03-2023 20:57-0400 Body mass index (BMI) [Ratio] 26.5 kg/m2 Dr. Lobito Maldonado Work Phone: 3(109)822-530096 [place] [address] 05-03-2023 20:57-0400 Body temperature 97.3 [degF] Dr. Lobito Maldonado Work Phone: 7(997)870-821637 [address] 05-03-2023 20:57-0400 Body weight 83.[address] Lobito Maldonado Work Phone: 6(436)342-425096 [place] [address] 05-03-2023 20:57-0400 Diastolic blood pressure 94 mm[Hg] Dr. Lobito Maldonado Work Phone: 2(941)793-385996 [place] [address] 05-03-2023 20:57-0400 Systolic blood pressure 148 mm[Hg] Dr. Lobito Maldonado Work Phone: 4(133)788-532296 [place] [address] 04-30-2023 06:22-0400 Diastolic blood pressure 71 mm[Hg] Dr. Lobito Maldonado Work Phone: 9(019)694-513596 [place] [address] 04-30-2023 06:22-0400 Heart rate 74 /min Dr. Lobito Maldonado Work Phone: 2(774)848-363396 [place] [address] 04-30-2023 06:22-0400 Respiratory rate 18 /min Dr. Lobito Maldonado Work Phone: 3(508)583-734796 [place] [address] 04-30-2023 06:22-0400 SaO2% (BldA) [Mass fraction] 99 % Dr. Lobito Maldonado Work Phone: 4(216)017-579616 [place] [address] 04-30-2023 06:22-0400 Systolic blood pressure 108 mm[Hg] Dr. Lobito Maldonado Work Phone: 2(647)041-888816 [place] [address] 04-30-2023 04:54-0400 Body height 177.[address] Lobito Maldonado Work Phone: 4(502)028-857416 [place] [address] 04-30-2023 04:54-0400 Body mass index (BMI) [Ratio] 27.1 kg/m2 Dr. Lobito Maldonado Work Phone: 4(330)957-015616 [place] [address] 04-30-2023 04:54-0400 Body temperature 98.5 [degF] Dr. Lobito Maldonado Work Phone: 1(021)340-457516 [place] [address] 04-30-2023 04:54-0400 Body weight 85.[address] Lobito Maldonado Work Phone: 2(361)216-637916 [place] [address] 03-10-2023 16:59-0400 Body height 177.[address] Lobito Maldonado Work Phone: 1(104)225-221616 [place] [address] 03-10-2023 16:59-0400 Body mass index (BMI) [Ratio] 26.9 kg/m2 Dr. Lobito Maldonado Work Phone: 3(276)348-218516 [place] [address] 03-10-2023 16:59-0400 Body temperature 98.9 [degF] Dr. Lobito Maldonado Work Phone: 6(384)952-803716 [place] [address] 03-10-2023 16:59-0400 Body weight 85.[address] Lobito Maldonado Work Phone: 6(773)553-750216 [place] [address] 03-10-2023 16:59-0400 Diastolic blood pressure 87 mm[Hg] Dr. Lobito Maldonado Work Phone: [facility] 03-10-2023 16:59-0400 Heart rate 102 /min Dr. Lobito Maldonado Work Phone: [facility] 03-10-2023 16:59-0400 Respiratory rate 18 /min Dr. Lobito Maldonado Work Phone: [facility] 03-10-2023 16:59-0400 SaO2% (BldA) [Mass fraction] 100 % Dr. Lobito Mladonado Work Phone: [facility] 03-10-2023 16:59-0400 Systolic blood pressure 117 mm[Hg] Dr. Lobito Maldonado Work Phone: [facility] 02-06-2023 13:21-0400 Diastolic blood pressure 83 mm[Hg] Lobito Maldonado MD Work Phone: [facility] 02-06-2023 13:21-0400 Heart rate 109 /min Lobito Maldonado MD Work Phone: [facility] 02-06-2023 13:21-0400 Systolic blood pressure 121 mm[Hg] Lobito Maldonado MD Work Phone: [facility] 02-06-2023 13:18-0400 Body weight 82.56 kg Lobito Maldonado MD Work Phone: [facility] 02-06-2023 13:18-0400 Respiratory rate 16 /min Lobito Maldonado MD Work Phone: [facility] 02-02-2023 12:59-0400 Body height 177.[address] Lobito Maldonado Work Phone: [facility] 02-02-2023 12:59-0400 Body mass index (BMI) [Ratio] 26.4 kg/m2 Dr. Lobito Maldonado Work Phone: [facility] 02-02-2023 12:59-0400 Body temperature 98.6 [degF] Dr. Lobito Maldonado Work Phone: 1(999)082-431116 [place] [address] 02-02-2023 12:59-0400 Body weight 83.[address] Lobito Maldonado Work Phone: 0(206)944-727916 [place] [address] 02-02-2023 12:59-0400 Diastolic blood pressure 70 mm[Hg] Dr. Lobito Maldonado Work Phone: 8(543)415-703016 [place] [address] 02-02-2023 12:59-0400 Heart rate 119 /min Dr. Lobito Maldonado Work Phone: 2(393)325-106616 [place] [address] 02-02-2023 12:59-0400 Respiratory rate 16 /min Dr. Lobito Maldonado Work Phone: 9(087)799-953316 [place] [address] 02-02-2023 12:59-0400 SaO2% (BldA) [Mass fraction] 96 % Dr. Lobito Maldonado Work Phone: 2(150)432-048016 [place] [address] 02-02-2023 12:59-0400 Systolic blood pressure 110 mm[Hg] Dr. Lobito Maldonado Work Phone: 5(143)683-910616 [place] [address] 01-22-2023 03:06-0400 Diastolic blood pressure 77 mm[Hg] Dr. Lobito Maldonado Work Phone: 8(553)597-194316 [place] [address] 01-22-2023 03:06-0400 Heart rate 62 /min Dr. Lobito Maldonado Work Phone: 5(680)801-513116 [place] [address] 01-22-2023 03:06-0400 Respiratory rate 15 /min Dr. Lobito Maldonado Work Phone: 5(460)455-318716 [place] [address] 01-22-2023 03:06-0400 SaO2% (BldA) [Mass fraction] 97 % Dr. Lobito Maldonado Work Phone: 1(057)633-742316 [place] [address] 01-22-2023 03:06-0400 Systolic blood pressure 124 mm[Hg] Dr. Lobito Maldonado Work Phone: 5(462)306-183416 [place] [address] 01-22-2023 00:26-0400 Body mass index (BMI) [Ratio] 26.9 kg/m2 Dr. Lobito Maldonado Work Phone: 9(937)178-828796 [place] [address] 01-22-2023 00:26-0400 Body temperature 97.8 [degF] Dr. Lobito Maldonado Work Phone: 5(059)000-241316 [place] [address] 01-22-2023 00:26-0400 Body weight 85.[address] Lobito Maldonado Work Phone: 8(763)442-741716 [place] [address] 01-21-2023 16:05-0400 Diastolic blood pressure 85 mm[Hg] Dr. Lobito Maldonado Work Phone: 5(218)908-498416 [place] [address] 01-21-2023 16:05-0400 Heart rate 84 /min Dr. Lobito Maldonado Work Phone: 5(672)111-431216 [place] [address] 01-21-2023 16:05-0400 Respiratory rate 20 /min Dr. Lobito Maldonado Work Phone: 0(388)019-407516 [place] [address] 01-21-2023 16:05-0400 SaO2% (BldA) [Mass fraction] 100 % Dr. Lobito Maldonado Work Phone: 5(871)378-952416 [place] [address] 01-21-2023 16:05-0400 Systolic blood pressure 125 mm[Hg] Dr. Lobito Maldonado Work Phone: 2(193)560-842116 [place] [address] 01-21-2023 14:16-0400 Body height 177.[address] Lobito Maldonado Work Phone: 8(460)976-799516 [place] [address] 01-21-2023 14:16-0400 Body mass index (BMI) [Ratio] 27.5 kg/m2 Dr. Lobito Maldonado Work Phone: 4(395)395-457716 [place] [address] 01-21-2023 14:16-0400 Body temperature 97.3 [degF] Dr. Lobito Maldonado Work Phone: 7(075)343-367616 [place] [address] 01-21-2023 14:16-0400 Body weight [address] Lobito Maldonado Work Phone: 2(194)697-878716 [place] [address] 12-26-2022 08:56-0400 Diastolic blood pressure 83 mm[Hg] Dr. Lobito Maldonado Work Phone: [facility] 12-26-2022 08:56-0400 Heart rate 80 /min Dr. Lobito Maldonado Work Phone: 3(591)619-301696 [place] [address] 12-26-2022 08:56-0400 Respiratory rate 16 /min Dr. Lobito Maldonado Work Phone: 1(306)749-734896 [place] [address] 12-26-2022 08:56-0400 SaO2% (BldA) [Mass fraction] 97 % Dr. Lobito Maldonado Work Phone: 4(751)366-484716 [place] [address] 12-26-2022 08:56-0400 Systolic blood pressure 120 mm[Hg] Dr. Lobito Maldonado Work Phone: 0(495)174-245816 [place] [address] 12-26-2022 05:46-0400 Body height 177.[address] Lobito Maldonado Work Phone: 1(845)286-731416 [place] [address] 12-26-2022 05:46-0400 Body mass index (BMI) [Ratio] 26.5 kg/m2 Dr. Lobito Maldonado Work Phone: 5(959)681-264616 [place] [address] 12-26-2022 05:46-0400 Body temperature 96.5 [degF] Dr. Lobito Maldonado Work Phone: 6(042)848-105216 [place] [address] 12-26-2022 05:46-0400 Body weight 83.[address] Lobito Maldonado Work Phone: 2(240)971-390196 [place] [address] 12-15-2022 11:49-0400 Body temperature 98.29 [degF] Emmanuel Fritz MD Work Phone: [facility] 12-15-2022 11:49-0400 Body weight 82.74 kg Emmanuel Fritz MD Work Phone: [facility] 12-15-2022 11:49-0400 Diastolic blood pressure 76 mm[Hg] Emmanuel Fritz MD Work Phone: [facility] 12-15-2022 11:49-0400 Heart rate 122 /min Emmanuel Fritz MD Work Phone: [facility] 12-15-2022 11:49-0400 Respiratory rate 18 /min Emmanuel Fritz MD Work Phone: [facility] 12-15-2022 11:49-0400 SaO2% (BldA) [Mass fraction] 98 % Emmanuel Fritz MD Work Phone: [facility] 12-15-2022 11:49-0400 Systolic blood pressure 120 mm[Hg] Emmanuel Firtz MD Work Phone: [facility] 12-15-2022 10:54-0400 Body mass index (BMI) [Ratio] 26.1 kg/m2 Dr. Lobito Maldonado Work Phone: [facility] 12-15-2022 10:54-0400 Body weight 82.[address] Lobito Maldonado Work Phone: 0(609)027-924196 [place] [address] 12-15-2022 10:54-0400 Diastolic blood pressure 72 mm[Hg] Dr. Lobito Maldonado Work Phone: 4(381)426-090196 [place] [address] 12-15-2022 10:54-0400 Heart rate 112 /min Dr. Lobito Maldonado Work Phone: [facility] 12-15-2022 10:54-0400 Respiratory rate 16 /min Dr. Lobito Maldonado Work Phone: [facility] 12-15-2022 10:54-0400 Systolic blood pressure 102 mm[Hg] Dr. Lobito Maldonado Work Phone: [facility] 12-14-2022 03:59-0400 Body temperature 98.7 [degF] Dr. Lobito Maldonado Work Phone: [facility] 12-14-2022 03:59-0400 Diastolic blood pressure 74 mm[Hg] Dr. Lobito Maldonado Work Phone: 1(702)014-968196 [place] [address] 12-14-2022 03:59-0400 Heart rate 90 /min Dr. Lobito Maldonado Work Phone: [facility] 12-14-2022 03:59-0400 Respiratory rate 17 /min Dr. Lobito Maldonado Work Phone: [facility] 12-14-2022 03:59-0400 SaO2% (BldA) [Mass fraction] 98 % Dr. Lobito Maldonado Work Phone: 4(769)916-463396 [place] [address] 12-14-2022 03:59-0400 Systolic blood pressure 138 mm[Hg] Dr. Lobito Maldonado Work Phone: 1(721)550-342696 [place] [address] 12-13-2022 23:07-0400 Body height 177.[address] Lobito Maldonado Work Phone: 9(173)337-737116 [place] [address] 12-13-2022 23:07-0400 Body mass index (BMI) [Ratio] 26.4 kg/m2 Dr. Lobito Maldonado Work Phone: 0(802)708-885416 [place] [address] 12-13-2022 23:07-0400 Body weight 83.[address] Lobito Maldonado Work Phone: 1(122)165-621516 [place] [address] 12-02-2022 15:04-0500 Body temperature 98.2 [degF] Dr. Lobito Maldonado Work Phone: 3(264)597-271396 [place] [address] 12-02-2022 15:04-0500 Diastolic blood pressure 88 mm[Hg] Dr. Lobito Maldonado Work Phone: 4(992)370-863496 [place] [address] 12-02-2022 15:04-0500 Heart rate 93 /min Dr. Lobito Madlonado Work Phone: 8(938)814-885796 [place] [address] 12-02-2022 15:04-0500 Respiratory rate 16 /min Dr. Lobito Maldonado Work Phone: 5(206)322-412296 [place] [address] 12-02-2022 15:04-0500 SaO2% (BldA) [Mass fraction] 98 % Dr. Lobito Maldonado Work Phone: 1(650)927-337196 [place] [address] 12-02-2022 15:04-0500 Systolic blood pressure 138 mm[Hg] Dr. Lobito Maldonado Work Phone: 8(570)134-658496 [place] [address] 12-02-2022 10:30-0500 Body height 177.[address] Lobito Maldonado Work Phone: 6(156)844-130816 [place] [address] 12-02-2022 10:30-0500 Body weight 86.[address] Lobito Maldonado Work Phone: 8(111)348-883516 [place] [address] 12-02-2022 06:00-0500 Body mass index (BMI) [Ratio] 27.3 kg/m2 Dr. Lobito Maldonado Work Phone: 5(176)899-521416 [place] [address] 11-29-2022 03:19-0500 Body temperature 97.4 [degF] Dr. Lobito Maldonado Work Phone: 7(155)868-591916 [place] [address] 11-29-2022 03:19-0500 Diastolic blood pressure 96 mm[Hg] Dr. Lobito Maldonado Work Phone: 8(614)274-889916 [place] [address] 11-29-2022 03:19-0500 Heart rate 100 /min Dr. Lobito Maldonado Work Phone: 2(623)384-960616 [place] [address] 11-29-2022 03:19-0500 Respiratory rate 17 /min Dr. Lobito Maldonado Work Phone: 0(462)135-269016 [place] [address] 11-29-2022 03:19-0500 SaO2% (BldA) [Mass fraction] 96 % Dr. Lobito Maldonado Work Phone: 3(632)291-661416 [place] [address] 11-29-2022 03:19-0500 Systolic blood pressure 148 mm[Hg] Dr. Lobito Maldonado Work Phone: 4(907)710-934316 [place] [address] 11-28-2022 21:43-0500 Body height 177.[address] Lobito Maldonado Work Phone: 4(569)166-456916 [place] [address] 11-28-2022 21:43-0500 Body mass index (BMI) [Ratio] 26.2 kg/m2 Dr. Lobito Maldonado Work Phone: 0(562)252-638916 [place] [address] 11-28-2022 21:43-0500 Body weight 82.[address] Lobito Maldonado Work Phone: 3(772)810-852016 [place] [address] 11-09-2022 20:42-0500 Body height 177.[address] Lobito Maldonado Work Phone: 7(222)672-153616 [place] [address] 11-09-2022 20:42-0500 Body mass index (BMI) [Ratio] 27.2 kg/m2 Dr. Lobito Maldonado Work Phone: 3(829)451-619316 [place] [address] 11-09-2022 20:42-0500 Body temperature 97.8 [degF] Dr. Lobito Maldonado Work Phone: 9(535)170-524616 [place] [address] 11-09-2022 20:42-0500 Body weight 86.[address] Lobito Maldonado Work Phone: 8(521)097-554816 [place] [address] 11-09-2022 20:42-0500 Diastolic blood pressure 92 mm[Hg] Dr. Lobito Maldonado Work Phone: 4(544)847-334616 [place] [address] 11-09-2022 20:42-0500 Heart rate 104 /min Dr. Lobito Maldonado Work Phone: 0(436)628-303716 [place] [address] 11-09-2022 20:42-0500 Respiratory rate 16 /min Dr. Lobito Maldonado Work Phone: 1(226)108-525616 [place] [address] 11-09-2022 20:42-0500 SaO2% (BldA) [Mass fraction] 100 % Dr. Lobito Maldonado Work Phone: 3(134)125-571316 [place] [address] 11-09-2022 20:42-0500 Systolic blood pressure 144 mm[Hg] Dr. Lobito Maldonado Work Phone: 2(566)799-766316 [place] [address] 11-09-2022 16:15-0500 Body height 177.[address] Lobito Maldonado Work Phone: 5(717)921-275916 [place] [address] 11-09-2022 16:15-0500 Body mass index (BMI) [Ratio] 27.2 kg/m2 Dr. Lobito Maldonado Work Phone: 8(483)942-574416 [place] [address] 11-09-2022 16:15-0500 Body temperature 96 [degF] Dr. Lobito Maldonado Work Phone: 8(852)411-610516 [place] [address] 11-09-2022 16:15-0500 Body weight 86.[address] Lobito Maldonado Work Phone: 5(005)882-902216 [place] [address] 11-09-2022 16:15-0500 Diastolic blood pressure 85 mm[Hg] Dr. Lobito Maldonado Work Phone: 5(315)230-301316 [place] [address] 11-09-2022 16:15-0500 Heart rate 111 /min Dr. Lobito Maldonado Work Phone: 1(573)175-032116 [place] [address] 11-09-2022 16:15-0500 Respiratory rate 18 /min Dr. Lobito Maldonado Work Phone: 2(478)151-334716 [place] [address] 11-09-2022 16:15-0500 SaO2% (BldA) [Mass fraction] 98 % Dr. Lobito Maldonado Work Phone: 5(686)039-697916 [place] [address] 11-09-2022 16:15-0500 Systolic blood pressure 142 mm[Hg] Dr. Lobito Maldonado Work Phone: 6(727)584-798516 [place] [address] 11-07-2022 15:16-0500 Diastolic blood pressure 80 mm[Hg] Alis Older COMPRESSOR OPERATOR ADJUSTER.TRAFFIC OFFICER Work Phone: [facility] 11-07-2022 15:16-0500 Systolic blood pressure 134 mm[Hg] Alis Older COMPRESSOR OPERATOR ADJUSTER.TRAFFIC OFFICER Work Phone: [facility] 11-07-2022 15:04-0500 Body weight 86.18 kg Alis Older COMPRESSOR OPERATOR ADJUSTER.TRAFFIC OFFICER Work Phone: [facility] 11-07-2022 15:04-0500 Heart rate 109 /min Alis Older COMPRESSOR OPERATOR ADJUSTER.TRAFFIC OFFICER Work Phone: [facility] 11-07-2022 15:04-0500 Respiratory rate 18 /min Alis Older COMPRESSOR OPERATOR ADJUSTER.TRAFFIC OFFICER Work Phone: [facility] 10-27-2022 09:00-0500 Body temperature 97.8 [degF] Dr. Lobito Maldonado Work Phone: 1(183)872-738116 [place] [address] 10-27-2022 09:00-0500 Diastolic blood pressure 96 mm[Hg] Dr. Lobito Maldonado Work Phone: 2(976)607-043316 [place] [address] 10-27-2022 09:00-0500 Heart rate 90 /min Dr. Lobito Maldonado Work Phone: 6(471)240-748316 [place] [address] 10-27-2022 09:00-0500 Respiratory rate 18 /min Dr. Lobito Maldonado Work Phone: 2(830)473-888616 [place] [address] 10-27-2022 09:00-0500 SaO2% (BldA) [Mass fraction] 94 % Dr. Lobito Maldonado Work Phone: 1(344)838-881316 [place] [address] 10-27-2022 09:00-0500 Systolic blood pressure 143 mm[Hg] Dr. Lobito Maldonado Work Phone: 4(212)029-803216 [place] [address] 10-26-2022 01:49-0500 Body mass index (BMI) [Ratio] 26.1 kg/m2 Dr. Lobito Maldonado Work Phone: 3(044)563-738616 [place] [address] 10-26-2022 01:49-0500 Body weight 82.[address] Lobito Maldonado Work Phone: 0(350)578-633216 [place] [address] 10-26-2022 00:39-0500 Body temperature 98.6 [degF] Dr. Lobito Maldonado Work Phone: 7(076)479-876816 [place] [address] 10-26-2022 00:39-0500 Diastolic blood pressure 90 mm[Hg] Dr. Lobito Maldonado Work Phone: 7(506)118-798416 [place] [address] 10-26-2022 00:39-0500 Heart rate 81 /min Dr. Lobito Maldonado Work Phone: 9(991)571-132716 [place] [address] 10-26-2022 00:39-0500 Respiratory rate 24 /min Dr. Lobito Maldonado Work Phone: 8(056)669-094016 [place] [address] 10-26-2022 00:39-0500 SaO2% (BldA) [Mass fraction] 97 % Dr. Lobito Maldonado Work Phone: 8(681)187-975916 [place] [address] 10-26-2022 00:39-0500 Systolic blood pressure 128 mm[Hg] Dr. Lobito Maldonado Work Phone: 8(595)567-436316 [place] [address] 10-25-2022 18:30-0500 Body height 177.[address] Lobito Maldonado Work Phone: 8(700)136-344616 [place] [address] 10-25-2022 18:30-0500 Body mass index (BMI) [Ratio] 28 kg/m2 Dr. Lobito Maldonado Work Phone: 1(916)796-550316 [place] [address] 10-25-2022 18:30-0500 Body weight 88.[address] Lobito Maldonado Work Phone: 2(087)997-675516 [place] [address] 09-08-2022 13:50-0500 Body temperature 97.7 [degF] Dr. Lobito Maldonado Work Phone: 2(578)007-882816 [place] [address] 09-08-2022 13:50-0500 Diastolic blood pressure 91 mm[Hg] Dr. Lobito Maldonado Work Phone: 6(280)182-619016 [place] [address] 09-08-2022 13:50-0500 Heart rate 94 /min Dr. Lobito Maldonado Work Phone: 1(198)515-897516 [place] [address] 09-08-2022 13:50-0500 Respiratory rate 18 /min Dr. Lobito Maldonado Work Phone: 3(787)502-249616 [place] [address] 09-08-2022 13:50-0500 SaO2% (BldA) [Mass fraction] 94 % Dr. Lobito Maldonado Work Phone: 4(486)588-410716 [place] [address] 09-08-2022 13:50-0500 Systolic blood pressure 139 mm[Hg] Dr. Lobito Maldonado Work Phone: 8(623)294-972516 [place] [address] 09-06-2022 14:30-0500 Body height 177.[address] Lobito Maldonado Work Phone: 2(969)534-287416 [place] [address] Work Phone: 09-06-2022 14:30-0500 Body weight 82.[address] Lobito Maldonado Work Phone: [facility] 09-06-2022 13:12-0500 Body mass index (BMI) [Ratio] 26.1 kg/m2 Dr. Lobito Maldonado Work Phone: [facility] 09-06-2022 12:00-0500 Respiratory rate 16 /min Dr. Lobito Maldonado Work Phone: [facility] Work Phone: 09-06-2022 11:26-0500 Body temperature 98.7 [degF] Dr. Lobito Maldonado Work Phone: [facility] Work Phone: 09-06-2022 11:26-0500 Diastolic blood pressure 94 mm[Hg] Dr. Lobito Maldonado Work Phone: [facility] Work Phone: 09-06-2022 11:26-0500 Heart rate 97 /min Dr. Lobito Maldonado Work Phone: [facility] Work Phone: 09-06-2022 11:26-0500 SaO2% (BldA) [Mass fraction] 97 % Dr. Lobito Maldonado Work Phone: [facility] Work Phone: 09-06-2022 11:26-0500 Systolic blood pressure 140 mm[Hg] Dr. Lobito Maldonado Work Phone: [facility] Work Phone: 09-06-2022 08:16-0500 Body height 177.[address] Lobito Maldonado Work Phone: [facility] Work Phone: 09-06-2022 08:16-0500 Body mass index (BMI) [Ratio] 27.1 kg/m2 Dr. Lobito Maldonado Work Phone: [facility] Work Phone: 09-06-2022 08:16-0500 Body weight 85.[address] Lobito Maldonado Work Phone: [facility] Work Phone: 08-19-2022 16:10-0500 Body weight 86.64 kg Lobito Maldonado MD Work Phone: [facility] 08-19-2022 16:10-0500 Diastolic blood pressure 87 mm[Hg] Lobito Maldonado MD Work Phone: [facility] 08-19-2022 16:10-0500 Heart rate 106 /min Lobito Maldonado MD Work Phone: [facility] 08-19-2022 16:10-0500 Respiratory rate 18 /min Lobito Maldonado MD Work Phone: [facility] 08-19-2022 16:10-0500 Systolic blood pressure 129 mm[Hg] Lobito Maldonado MD Work Phone: [facility] 08-08-2022 11:31-0500 Body height 177.[address] Lobito Maldonado Work Phone: [facility] Work Phone: 08-08-2022 11:31-0500 Body mass index (BMI) [Ratio] 27.3 kg/m2 Dr. Lobito Maldonado Work Phone: [facility] 08-08-2022 11:31-0500 Body temperature 97.8 [degF] Dr. Lobito Maldonado Work Phone: [facility] 08-08-2022 11:31-0500 Body weight 86.[address] Lobito Maldonado Work Phone: [facility] 08-08-2022 11:31-0500 Diastolic blood pressure 82 mm[Hg] Dr. Lobito Maldonado Work Phone: 4(013)190-217596 [place] [address] 08-08-2022 11:31-0500 Heart rate 103 /min Dr. Lobito Maldonado Work Phone: 4(614)716-381996 [place] [address] 08-08-2022 11:31-0500 Respiratory rate 16 /min Dr. Lobito Maldonado Work Phone: 6(086)172-812396 [place] [address] 08-08-2022 11:31-0500 SaO2% (BldA) [Mass fraction] 97 % Dr. Lobito Maldonado Work Phone: 0(176)961-792596 [place] [address] 08-08-2022 11:31-0500 Systolic blood pressure 138 mm[Hg] Dr. Lobito Maldonado Work Phone: 1(746)260-877296 [place] [address] 07-18-2022 11:58-0400 Body temperature 98.2 [degF] Dr. Lobito Maldonado Work Phone: 0(378)920-789096 [place] [address] 07-18-2022 11:58-0400 Diastolic blood pressure 89 mm[Hg] Dr. Lobito Maldonado Work Phone: 3(290)602-403496 [place] [address] 07-18-2022 11:58-0400 Heart rate 56 /min Dr. Lobito Maldonado Work Phone: 2(733)980-175496 [place] [address] 07-18-2022 11:58-0400 Respiratory rate 16 /min Dr. Lobito Maldonado Work Phone: 1(561)849-396296 [place] [address] 07-18-2022 11:58-0400 SaO2% (BldA) [Mass fraction] 96 % Dr. Lobito Maldonado Work Phone: 9(518)410-793196 [place] [address] 07-18-2022 11:58-0400 Systolic blood pressure 136 mm[Hg] Dr. Lobito Maldonado Work Phone: 0(545)409-428996 [place] [address] 07-13-2022 14:21-0400 Body height 177.[address] Lobito Maldonado Work Phone: [facility] Work Phone: 07-13-2022 14:21-0400 Body weight 85.[address] Lobito Maldonado Work Phone: [facility] 07-13-2022 06:03-0400 Body temperature 97.6 [degF] Dr. Lobito Maldonado Work Phone: [facility] Work Phone: 07-13-2022 06:03-0400 Diastolic blood pressure 79 mm[Hg] Dr. Lobito Maldonado Work Phone: [facility] Work Phone: 07-13-2022 06:03-0400 Heart rate 86 /min Dr. Lobito Maldonado Work Phone: [facility] Work Phone: 07-13-2022 06:03-0400 Respiratory rate 18 /min Dr. Lobito Maldonado Work Phone: [facility] Work Phone: 07-13-2022 06:03-0400 SaO2% (BldA) [Mass fraction] 95 % Dr. Lobito Maldonado Work Phone: [facility] Work Phone: 07-13-2022 06:03-0400 Systolic blood pressure 126 mm[Hg] Dr. Lobito Maldonado Work Phone: [facility] Work Phone: 07-13-2022 05:57-0400 Body height 177.[address] Lobito Maldonado Work Phone: [facility] Work Phone: 07-13-2022 05:57-0400 Body mass index (BMI) [Ratio] 27.1 kg/m2 Dr. Lobito Maldonado Work Phone: [facility] 07-13-2022 05:57-0400 Body weight 85.[address] Lobito Maldonado Work Phone: [facility] Work Phone: 07-04-2022 14:29-0400 Diastolic blood pressure 65 mm[Hg] Dr. Lobito Maldonado Work Phone: [facility] 07-04-2022 14:29-0400 Heart rate 78 /min Dr. Lobito Maldonado Work Phone: [facility] 07-04-2022 14:29-0400 Respiratory rate 18 /min Dr. Lobito Maldonado Work Phone: [facility] 07-04-2022 14:29-0400 SaO2% (BldA) [Mass fraction] 100 % Dr. Lobito Maldonado Work Phone: [facility] 07-04-2022 14:29-0400 Systolic blood pressure 110 mm[Hg] Dr. Lobito Maldonado Work Phone: [facility] 07-04-2022 10:41-0400 Body height 177.[address] Lobito Maldonado Work Phone: [facility] Work Phone: 07-04-2022 10:41-0400 Body mass index (BMI) [Ratio] 27.6 kg/m2 Dr. Lobito Maldonado Work Phone: [facility] 07-04-2022 10:41-0400 Body temperature 97.3 [degF] Dr. Lobito Maldonado Work Phone: [facility] 07-04-2022 10:41-0400 Body weight 87.[address] Lobito Maldonado Work Phone: [facility] 07-04-2022 09:53-0400 Body mass index (BMI) [Ratio] 27.6 kg/m2 Dr. Lobito Maldonado Work Phone: [facility] 07-04-2022 09:53-0400 Body weight 87.[address] Lobito Maldonado Work Phone: [facility] 05-16-2022 15:45-0400 Body temperature 97.3 [degF] Lobito Maldonado MD Work Phone: [facility] 05-16-2022 15:45-0400 Body weight 85.64 kg Lobito Maldonado MD Work Phone: [facility] 05-16-2022 15:45-0400 Diastolic blood pressure 78 mm[Hg] Lobito Maldonado MD Work Phone: [facility] 05-16-2022 15:45-0400 Heart rate 104 /min Lobito Maldonado MD Work Phone: [facility] 05-16-2022 15:45-0400 Respiratory rate 18 /min Lobito Maldonado MD Work Phone: [facility] 05-16-2022 15:45-0400 Systolic blood pressure 124 mm[Hg] Lobito Maldonado MD Work Phone: [facility] 03-25-2022 14:25-0400 Body height 177.8 cm [employer]ALL WORKER[employer]C Souleymane Elliott WALL WORKER Work Phone: [facility] Work Phone: 03-25-2022 14:25-0400 Body mass index (BMI) [Ratio] 27.9 kg/m2 [employer] WORKER[employer] Souleymane Elliott WALL WORKER Work Phone: [facility] Work Phone: 03-25-2022 14:25-0400 Body weight 88.45 kg WALL WORKER-C Souleymane Elliott WALL WORKER Work Phone: [facility] Work Phone: 03-25-2022 14:25-0400 Diastolic blood pressure 78 mm[Hg] WALL WORKER-Velma Elliott WALL WORKER Work Phone: [facility] Work Phone: 03-25-2022 14:25-0400 Heart rate 108 /min WALL WORKER-Velma Elliott WALL WORKER Work Phone: [facility] Work Phone: 03-25-2022 14:25-0400 SaO2% (BldA) [Mass fraction] 95 % [employer] WORKER[employer] Souleymane Elliott WALL WORKER Work Phone: [facility] Work Phone: 03-25-2022 14:25-0400 Systolic blood pressure 118 mm[Hg] W[employer] WORKER[employer]C Souleymane Elliott WALL WORKER Work Phone: [facility] Work Phone: 03-10-2022 09:38-0400 Body temperature 97.81 [degF] Lobito Maldonado MD Work Phone: [facility] 03-10-2022 09:38-0400 Body weight 87.73 kg Lobito Maldonado MD Work Phone: [facility] 03-10-2022 09:38-0400 Diastolic blood pressure 82 mm[Hg] Lobito Maldonado MD Work Phone: [facility] 03-10-2022 09:38-0400 Heart rate 84 /min Lobito Maldonado MD Work Phone: [facility] 03-10-2022 09:38-0400 Respiratory rate 18 /min Lobito Maldonado MD Work Phone: [facility] 03-10-2022 09:38-0400 Systolic blood pressure 130 mm[Hg] Lobito Maldonado MD Work Phone: [facility] 03-07-2022 00:34-0400 Diastolic blood pressure 92 mm[Hg] WALL WORKER-Velma Elliott WALL WORKER Work Phone: [facility] Work Phone: 03-07-2022 00:34-0400 Heart rate 83 /min WALL WORKERJocelynn Elliott WALL WORKER Work Phone: [facility] Work Phone: 03-07-2022 00:34-0400 Respiratory rate 16 /min WALL WORKERJocelynn Elliott WALL WORKER Work Phone: [facility] Work Phone: 03-07-2022 00:34-0400 SaO2% (BldA) [Mass fraction] 98 % [employer] WORKER[employer] Souleymane Elliott WALL WORKER Work Phone: [facility] Work Phone: 03-07-2022 00:34-0400 Systolic blood pressure 146 mm[Hg] WALL WORKER[employer]C Souleymane Elliott WALL WORKER Work Phone: [facility] Work Phone: 03-06-2022 22:07-0400 Body height 177.8 cm WALL WORKER[employer]C Souleymane Elliott WALL WORKER Work Phone: [facility] Work Phone: 03-06-2022 22:07-0400 Body mass index (BMI) [Ratio] 27.8 kg/m2 [employer] WORKER[employer] Souleymane Elliott WALL WORKER Work Phone: [facility] Work Phone: 03-06-2022 22:07-0400 Body temperature 96.3 [degF] W[employer] WORKER[employer]C Souleymane Elliott WALL WORKER Work Phone: [facility] Work Phone: 03-06-2022 22:07-0400 Body weight 87.99 kg WALL WORKER-C Souleymane Elliott WALL WORKER Work Phone: [facility] Work Phone: 03-04-2022 13:12-0400 Body temperature 97.9 [degF] WALL WORKER-C Souleymane Elliott WALL WORKER Work Phone: [facility] Work Phone: 03-04-2022 13:12-0400 Diastolic blood pressure 95 mm[Hg] WALL WORKER-C Souleymane Elliott WALL WORKER Work Phone: [facility] Work Phone: 03-04-2022 13:12-0400 Heart rate 81 /min W[employer] WORKER-C Souleymane Elliott WALL WORKER Work Phone: [facility] Work Phone: 03-04-2022 13:12-0400 Respiratory rate 18 /min WALL WORKER-C Souleymane Elliott WALL WORKER Work Phone: [facility] Work Phone: 03-04-2022 13:12-0400 SaO2% (BldA) [Mass fraction] 95 % WALL WORKER-C Souleymane Elliott WALL WORKER Work Phone: [facility] Work Phone: 03-04-2022 13:12-0400 Systolic blood pressure 141 mm[Hg] WALL WORKER-C Souleymane Elliott WALL WORKER Work Phone: [facility] Work Phone: 03-04-2022 06:00-0400 Body weight 87.9 kg WALL WORKER-C Souleymane Elliott WALL WORKER Work Phone: [facility] Work Phone: 03-03-2022 10:54-0400 Body height 177.8 cm WALL WORKER-C Souleymane Elliott WALL WORKER Work Phone: [facility] Work Phone: 02-27-2022 16:21-0400 Body mass index (BMI) [Ratio] 28.2 kg/m2 WALL WORKER-C Souleymane Elliott WALL WORKER Work Phone: [facility] Work Phone: 02-27-2022 16:19-0400 Body temperature 97.7 [degF] WALL WORKER-C Souleymane Elliott WALL WORKER Work Phone: [facility] Work Phone: 02-27-2022 16:19-0400 Diastolic blood pressure 96 mm[Hg] WALL WORKER-C Souleymane Elliott WALL WORKER Work Phone: [facility] Work Phone: 02-27-2022 16:19-0400 Heart rate 99 /min WALL WORKER-C Souleymane Elliott WALL WORKER Work Phone: [facility] Work Phone: 02-27-2022 16:19-0400 Respiratory rate 18 /min WALL WORKER-C Souleymane Elliott WALL WORKER Work Phone: [facility] Work Phone: 02-27-2022 16:19-0400 SaO2% (BldA) [Mass fraction] 99 % WALL WORKER-C Souleymane Elliott WALL WORKER Work Phone: [facility] Work Phone: 02-27-2022 16:19-0400 Systolic blood pressure 165 mm[Hg] WALL WORKER-C Souleymane Elliott WALL WORKER Work Phone: [facility] Work Phone: 02-27-2022 12:20-0400 Body height 175.26 cm WALL WORKER-Velma Elliott WALL WORKER Work Phone: [facility] Work Phone: 02-27-2022 12:20-0400 Body mass index (BMI) [Ratio] 29.9 kg/m2 WALL WORKER-Velma Elliott WALL WORKER Work Phone: [facility] Work Phone: 02-27-2022 12:20-0400 Body weight 91.9 kg WALL WORKER-C Souleymane Elliott WALL WORKER Work Phone: [facility] Work Phone: 01-03-2022 13:16-0400 Body mass index (BMI) [Ratio] 28.4 kg/m2 WALL WORKER-Velma Elliott WALL WORKER Work Phone: [facility] Work Phone: 01-03-2022 13:16-0400 Body weight 89.81 kg WALL WORKER-Velma Elliott WALL WORKER Work Phone: [facility] Work Phone: 01-03-2022 13:16-0400 Diastolic blood pressure 80 mm[Hg] WALL WORKER-Velma Elliott WALL WORKER Work Phone: [facility] Work Phone: 01-03-2022 13:16-0400 Heart rate 95 /min WALL WORKER-Velma Elliott WALL WORKER Work Phone: [facility] Work Phone: 01-03-2022 13:16-0400 Respiratory rate 18 /min WALL WORKER-C Souleymane Elliott WALL WORKER Work Phone: [facility] Work Phone: 01-03-2022 13:16-0400 SaO2% (BldA) [Mass fraction] 97 % WALL WORKER-C Souleymane Elliott WALL WORKER Work Phone: [facility] Work Phone: 01-03-2022 13:16-0400 Systolic blood pressure 120 mm[Hg] WALL WORKER-C Souleymane Elliott WALL WORKER Work Phone: [facility] Work Phone: 01-03-2022 13:16-0400 Body mass index (BMI) [Ratio] 28.4 kg/m2 WALL WORKER-C Souleymane Elloitt WALL WORKER Work Phone: [facility] Work Phone: 01-03-2022 13:16-0400 Body weight 89.81 kg WALL WORKER-C Souleymane Elliott WALL WORKER Work Phone: [facility] Work Phone: 01-03-2022 13:16-0400 Diastolic blood pressure 80 mm[Hg] WALL WORKER-C Souleymane Elliott WALL WORKER Work Phone: [facility] Work Phone: 01-03-2022 13:16-0400 Heart rate 95 /min WALL WORKER-C Souleymane Elliott WALL WORKER Work Phone: [facility] Work Phone: 01-03-2022 13:16-0400 Respiratory rate 18 /min WALL WORKER-C Souleymane Elliott WALL WORKER Work Phone: [facility] Work Phone: 01-03-2022 13:16-0400 SaO2% (BldA) [Mass fraction] 97 % WALL WORKER-C Souleymane Elliott WALL WORKER Work Phone: [facility] Work Phone: 01-03-2022 13:16-0400 Systolic blood pressure 120 mm[Hg] WALL WORKER-Velma Elliott WALL WORKER Work Phone: [facility] Work Phone: 12-09-2021 21:51-0400 Body temperature 98.4 [degF] WALL WORKER-C Souleymane Elliott WALL WORKER Work Phone: [facility] Work Phone: 12-09-2021 21:51-0400 Diastolic blood pressure 98 mm[Hg] WALL WORKER-C Souleymane Elliott WALL WORKER Work Phone: [facility] Work Phone: 12-09-2021 21:51-0400 Heart rate 93 /min WALL WORKER-Velma Elliott WALL WORKER Work Phone: [facility] Work Phone: 12-09-2021 21:51-0400 Respiratory rate 18 /min WALL WORKER-C Souleymane Elliott WALL WORKER Work Phone: [facility] Work Phone: 12-09-2021 21:51-0400 SaO2% (BldA) [Mass fraction] 97 % WALL WORKER-C Souleymane Elliott WALL WORKER Work Phone: [facility] Work Phone: 12-09-2021 21:51-0400 Systolic blood pressure 151 mm[Hg] WALL WORKER-Velma Elliott WALL WORKER Work Phone: [facility] Work Phone: 12-08-2021 15:59-0400 Body weight 89.4 kg WALL WORKER-Velma Elliott WALL WORKER Work Phone: [facility] Work Phone: 12-08-2021 11:08-0400 Body mass index (BMI) [Ratio] 28.3 kg/m2 WALL WORKER-Velma Elliott WALL WORKER Work Phone: [facility] Work Phone: 12-08-2021 04:48-0400 Inhaled oxygen flow rate 1 L/min WALL WORKER-C Souleymane Elliott WALL WORKER Work Phone: [facility] Work Phone: 06-08-2017 14:33-0400 BMI (Body Mass Index) 29.95 kg/m2 [facility] Work Phone: 06-08-2017 14:33-0400 BP Diastolic 70 mm[Hg] [facility] Work Phone: [...] Date Encounter Type Care Provider Facility Start: 08-19-2025 ambulatory Taras Santamaria Facility :[facility] Start: 08-01-2025 End: 08-01-2025 ambulatory Lobito Maldonado Facility:[facility] Start: 08-01-2025 End: 08-01-2025 ambulatory Taras Friend Facility:[facility] Start: 07-18-2025 End: 07-18-2025 ambulatory LOBITO MALDONADO Facility:[facility] Start: 03-31-2025 End: 03-31-2025 Patient encounter procedure Taras Santamaria DO -[facility] Work Phone: Start: 03-31-2025 End: 03-31-[address] Lobito Maldonado MD Work Phone: -[facility] Start: 03-24-2025 End: 03-24-2025 Office outpatient visit 25 minutes Alis Chua APRN.CNP Work Phone: [facility] Comment on above: Acute pancreatitis w ithout infection or necrosis, unspecified pancreatitis type (HCC) (Primary Dx); Constipation, unspecified constipation type; Hemorrhoids, unspecified hemorrhoid type Start: 03-24-2025 End: 03-24-2025 ambulatory LOBITO MALDONADO Facility:[facility] Start: 03-21-2025 End: 03-21-2025 Refill Lobito Maldonado MD Work Phone: [facility] [place] Comment on above: Refill Request Start: 03-16-2025 End: 03-16-2025 Emergency department patient visit Dr. Lobito Maldonado MD Work Phone: -Emergency Department Work Phone: Start: 02-15-2025 End: 02-25-2025 Follow-up encounter Lobito Maldonado MD Work Phone: [facility] [place] Start: 02-14-2025 End: 02-18-2025 Refill Lobito Maldonado MD Work Phone: [facility] Comment on above: Refill Request Start: 02-13-2025 End: 02-13-[address] Antony Burnett MD -[facility] Work Phone: Start: 02-13-2025 End: 02-13-[address] Lobito Maldonado MD Work Phone: [facility] Work Phone: Start: 02-12-2025 End: 02-13-2025 ambulatory LOBITO MALDONADO Facility:[facility] Start: 02-12-2025 Patient encounter procedure ALIS Elizalde [facility] Start: 01-28-2025 End: 01-28-2025 Refill Lobito Maldonado MD Work Phone: [facility] Comment on above: Refill Request Start: 01-16-2025 End: 01-16-2025 ambulatory LOBITO MALDONADO Facility:[facility] Start: 11-07-2024 End: 11-08-2024 Refill Lobito Maldonado MD Work Phone: [facility] Comment on above: Refill Request Start: 10-28-2024 End: 10-28-2024 Refill Lobito Maldonado MD Work Phone: [facility] Comment on above: Refill Request Start: 10-24-2024 End: 10-24-2024 ambulatory LOBITO MALDONADO Facility:[facility] Start: 10-24-2024 End: 10-24-2024 Office outpatient visit 25 minutes Lobito Maldonado MD Work Phone: [facility] Comment on above: Type 2 diabetes nanda itus without complication, with long-term current use of insulin (HCC) (Primary Dx); Hypertension, essential; Mixed hyperlipidemia; 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; Prostate cancer (HCC); Nonintractable generalized 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 (HCC); Hypomagnesemia; Alcohol-induced chronic pancreatitis (HCC) Start: 10-23-2024 End: 10-24-2024 Telephone encounter Lobito Maldonado MD Work Phone: [facility] Comment on above: Appointment Start: 10-10-2024 End: 10-11-2024 Refill Lobito Maldonado MD Work Phone: [facility] Comment on above: Refill Request Start: 10-09-2024 End: 10-09-2024 ambulatory Taras Santamaria Facility:[facility] Start: 09-11-2024 End: 09-11-2024 Refill Lobito Maldonado MD Work Phone: [facility] [place] Comment on above: Refill Request Start: 08-16-2024 End: 08-16-2024 Refill Lobito Maldonado MD Work Phone: [facility] [place] Comment on above: Refill Request Start: 08-13-2024 End: 08-13-2024 Emergency department patient visit Lobito Maldonado Facility:[facility] Start: 08-12-2024 End: 08-12-2024 Emergency department patient visit Genarojosafat Trammell Facility:[facility] Start: 07-31-2024 End: 07-31-2024 Telephone encounter Lobito Maldonado MD Work Phone: [facility] [place] Comment on above: Results Start: 07-22-2024 End: 07-22-2024 Subsequent hospital visit by physician [facility] Work Phone: Radiology Comment on above: Bronchitis [J40] Start: 07-22-2024 End: 07-22-2024 ambulatory LOBITO MLADONADO Facility:[facility] Start: 07-18-2024 End: 07-18-2024 Patient encounter procedure Kat Galindo OD Work Phone: Ophthalmology Comment on above: Primary open angle g laucoma (POAG) of both eyes, mild stage (Primary Dx); Optic cupping of both eyes; Type 2 diabetes mellitus without retinopathy (HCC); Combined form of age-related cataract, both eyes; Myopia, bilateral; Regular astigmatism, bilateral; Presbyopia Start: 07-07-2024 End: 07-07-2024 ambulatory Roxie Zuñiga RN NURSE [employer] Comment on above: Results Start: 07-05-2024 End: 07-08-2024 Refill Lobito Maldonado MD Work Phone: [facility] [place] Comment on above: Refill Request Start: 07-04-2024 End: 07-04-2024 Telephone encounter Lobito Maldonado MD Work Phone: [facility] [place] Comment on above: Results Start: 07-03-2024 End: 07-03-2024 Patient encounter procedure Lobito Maldonado MD Work Phone: [facility] [place] Comment on above: 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) (Primary Dx); Hypertension, essential; Bronchitis Start: 06-21-2024 End: 06-21-2024 Refill Lobito Maldonado MD Work Phone: [facility] [place] Comment on above: Refill Request Start: 05-24-2024 End: 05-24-2024 Refill Lobito Maldonado MD Work Phone: [facility] [place] Comment on above: Refill Request Start: 04-29-2024 End: 04-29-2024 Nursing evaluation of patient and report Mi Nurse Work Phone: [facility] [place] Comment on above: Need for vaccination (Primary Dx) Start: 04-22-2024 Refill Lobito pollack MD Work Phone: [facility] [place] Start: 04-19-2024 Refill Lobito pollack MD Work Phone: [facility] [place] Comment on above: Refill Request Start: 03-29-2024 Refill Lobito pollack MD Work Phone: [facility] [place] Comment on above: Refill Request Start: 03-06-2024 Refill Lobito pollack MD Work Phone: [facility] [place] Comment on above: Refill Request Start: 03-01-2024 Refill Lobito pollack MD Work Phone: [facility] [place] Comment on above: Refill Request Start: 02-27-2024 Telephone encounter Alis merritt COMPRESSOR OPERATOR ADJUSTER.TRAFFIC OFFICER Work Phone: [facility] [place] Comment on above: Results Start: 02-09-2024 Refill Lobito pollack MD Work Phone: [facility] [place] Comment on above: Refill Request Start: 02-07-2024 Telephone encounter Alis merritt COMPRESSOR OPERATOR ADJUSTER.TRAFFIC OFFICER Work Phone: [facility] [place] Comment on above: Results Start: 02-05-2024 End: 02-05-2024 Subsequent hospital visit by physician Yuridia [facility] [place] Work Phone: Radiology Comment on above: Shortness of breath [R06.02] Start: 02-05-2024 End: 02-05-2024 Patient encounter procedure Alis Tonio Toma COMPRESSOR OPERATOR ADJUSTER.TRAFFIC OFFICER Work Phone: [facility] [place] Comment on above: Medicare annual well ness visit, subsequent (Primary Dx); Shortness of breath; Tachycardia; Hypertension, essential; Alcohol-induced chronic pancreatitis (HCC); Type 2 diabetes mellitus without complication, with long-term current use of insulin (HCC); Mixed hyperlipidemia; Prostate cancer (HCC); Nonintractable generalized 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 (HCC) Start: 02-02-2024 Refill Lobito pollack MD Work Phone: [facility] [place] Comment on above: Refill Request Start: 01-16-2024 End: 01-16-2024 Patient encounter procedure Puja Pepper OD Work Phone: Ophthalmology Comment on above: Type 2 diabetes nanda itus without retinopathy (HCC) (Primary Dx); Primary open angle glaucoma (POAG) of both eyes, mild stage; Optic cupping of both eyes; Combined form of age-related cataract, both eyes; Hypertensive retinopathy, bilateral; Myopia, bilateral; Regular astigmatism, bilateral; Presbyopia Start: 01-10-2024 Patient Outreach Lobito chester MD Work Phone: [facility] [place] Comment on above: Transition Of Care Start: 01-08-2024 Non-patient / Non-visit Dr. Lobito Maldonado Work Phone: [facility] Work Phone: Start: 01-07-2024 End: 01-12-2024 ambulatory DAIANA BANDA DO Facility:B Start: 01-07-2024 End: 01-11-2024 Outreach Lab DAIANA BANDA DO [facility] Start: 01-07-2024 Non-patient / Non-visit Dr. Lobito Maldonado Work Phone: [facility] Work Phone: Start: 01-07-2024 End: 01-08-2024 Evaluation and management of inpatient Dr. Lobito Maldonado Work Phone: [facility] Work Phone: Start: 12-28-2023 Telephone encounter Vanessa Horan OA Ophthalmology Comment on above: Appointment Start: 12-22-2023 End: 12-22-[address] Lobito Maldonado Work Phone: [facility] Work Phone: Start: 12-22-2023 End: 12-22-[address] Lobito Maldonado Work Phone: [facility] Work Phone: Start: 11-27-2023 End: 11-27-2023 Nursing evaluation of patient and report Mi Nurse Work Phone: [facility] [place] Comment on above: Encounter for immuni zation (Primary Dx) Start: 11-20-2023 End: 11-20-2023 Emergency department patient visit Dr. Lobito Maldonado Work Phone: [facility] Work Phone: Start: 11-14-2023 Telephone encounter Lobito de leon MD Work Phone: [facility] [place] Comment on above: Patient Update; Orde rs Start: 11-07-2023 End: 11-07-2023 Emergency department patient visit Dr. Lobito Maldonado [facility] Start: 10-23-2023 End: 10-23-[address] Lobito Maldonado Work Phone: [facility]rology Work Phone: Start: 10-10-2023 End: 10-10-2023 Emergency department patient visit Dr. Lobito Maldonado [facility] Start: 10-04-2023 End: 10-04-[address] Lobito Maldonado Work Phone: [facility] Gastroenterology Work Phone: Start: 08-29-2023 Refill Lobito pollack MD Work Phone: [facility] [place] Comment on above: Refill Request Start: 08-21-2023 Refill Lobito pollack MD Work Phone: [facility] [place] Comment on above: Refill Request Start: 08-09-2023 End: 08-09-2023 Emergency department patient visit Dr. [facility]obito Maldonado [facility] Start: 06-16-2023 Telephone encounter Lobito de leon MD Work Phone: [facility] [place] Comment on above: Results Start: 06-09-2023 End: 06-09-2023 Patient encounter procedure Alis Older COMPRESSOR OPERATOR ADJUSTER.TRAFFIC OFFICER Work Phone: [facility] [place] Comment on above: Type 2 diabetes nanda itus without complication, with long-term current use of insulin (HCC) (Primary Dx); Encounter for immunization Start: 06-05-2023 End: 06-05-2023 Subsequent hospital visit by physician Yuridia [facility] [place] Work Phone: Radiology Comment on above: Pneumonia [...] / Non-visit Dr. Lobito Maldonado Work Phone: [facility] Work Phone: Start: 05-03-2023 End: 05-04-2023 Emergency department patient visit Dr. Lobito Maldonado [facility] Start: 05-01-2023 Refill Lobito pollack MD Work Phone: [facility] [place] Comment on above: Refill Request Start: 04-30-2023 End: 04-30-2023 Emergency department patient visit Dr. [facility]obito Maldonado [facility] Start: 04-19-2023 End: 04-19-[address] Lobito Maldonado Work Phone: [facility] Work Phone: Start: 03-10-2023 End: 03-10-2023 Emergency department patient visit Dr. Lobito Maldonado [facility] Start: 02-21-2023 End: 02-21-2023 Patient encounter [...] Lobito Maldonado MD Work Phone: [facility] [place] Comment on above: Nausea (Primary Dx); Hypertension, essential; 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 epilepticus, unspecified epilepsy type (HCC); Alcohol-induced chronic pancreatitis (HCC); Dizziness; Type 2 diabetes mellitus without complication, with long-term current use of insulin (HCC) Start: 02-02-2023 End: 02-02-[address] Lobito Maldonado Work Phone: [facility] Work Phone: Start: 02-02-2023 End: 02-02-[address] Lobito Maldonado Work Phone: [facility] Start: 02-02-2023 End: 02-02-2023 Dr. Lobito Maldonado Work Phone: [facility] Start: 01-24-2023 Telephone encounter Lobito de leon MD Work Phone: [facility] [place] Comment on above: Patient Update Start: 01-22-2023 End: 01-22-2023 Emergency department patient visit Dr. Lobito Maldonado Work Phone: [facility] Start: 01-22-2023 End: 01-22-2023 Dr. Lobito Maldonado Work Phone: [facility] Start: 01-21-2023 End: 01-21-2023 Emergency department patient visit Dr. Lobito Maldonado Work Phone: [facility] Start: 01-21-2023 End: 01-21-2023 Dr. Lobito Maldonado Work Phone: [facility] Start: 01-16-2023 Refill Lobito pollack MD Work Phone: [facility] [place] Comment on above: Refill Request Start: 12-27-2022 Telephone encounter Lobito de leon MD Work Phone: [facility] [place] Comment on above: [facility] ER visit Start: 12-26-2022 End: 12-26-2022 Emergency department patient visit Dr. Lobito Maldonado Work Phone: [facility] Work Phone: Start: 12-26-2022 End: 12-26-2022 Dr. Lobito Maldonado Work Phone: [facility] Start: 12-23-2022 End: 12-23-[address] Lobito Maldonado Work Phone: [facility] Start: 12-23-2022 End: 12-23-2022 Dr. Lobito Maldonado Work Phone: [facility] Start: 12-20-2022 Refill Lobito pollack MD Work Phone: [facility] Comment on above: Refill Request Start: 12-16-2022 Telephone encounter Molina LEOS Work Phone: [facility] Comment on above: Results Start: 12-15-2022 End: 12-15-2022 Patient encounter procedure Emmanuel Fritz MD Work Phone: [facility] Comment on above: Sore throat (Primary Dx); URI, acute Start: 12-15-2022 End: 12-15-2022 Dr. Lobito Maldonado Work Phone: [facility] Start: 12-13-2022 End: 12-14-2022 Emergency department patient visit Dr. Lobito Maldonado Work Phone: [facility] Start: 12-13-2022 End: 12-14-2022 Dr. 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 Lobito Maldonado Work Phone: [facility] Start: 12-02-2022 Dr. Lobito Dwyer Work Phone: [facility] Start: 12-01-2022 Non-patient / Non-visit Dr. Lobito Maldonado Work Phone: [facility] Start: 12-01-2022 Dr. Lobito Dwyer Work Phone: [facility] Start: 12-01-2022 Telephone encounter Lobito de leon MD Work Phone: [facility] Comment on above: Refill Request Start: 12-01-2022 Non-patient / Non-visit Dr. Lobito Maldonado Work Phone: [facility] Start: 12-01-2022 Dr. Lobito Dwyer Work Phone: [facility] Start: 11-30-2022 Non-patient / Non-visit Dr. Lobito Maldonado Work Phone: [facility] Start: 11-30-2022 Dr. Lobito Dwyer Work Phone: [facility] Start: 11-30-2022 Non-patient / Non-visit Dr. Lobito Maldonado Work Phone: [facility] Start: 11-30-2022 Dr. Lobito Dwyer Work Phone: [facility] Start: 11-29-2022 Non-patient / Non-visit Dr. Lobito Maldonado Work Phone: [facility] Start: 11-29-2022 Dr. Lobito Dwyer Work Phone: [facility] Start: 11-29-2022 End: 12-02-2022 Evaluation and management of inpatient Dr. Lobito Maldonado Work Phone: [facility] 3 Start: 11-29-2022 End: 12-02-2022 Dr. Lobito Maldonado Work Phone: [facility] Start: 11-14-2022 Refill Lobito pollack MD Work Phone: [facility] [place] Comment on above: Refill Request Start: 11-09-2022 End: 11-10-2022 Emergency department patient visit Dr. Lobito Maldonado Work Phone: [facility] Start: 11-09-2022 End: 11-10-2022 Dr. Lobito Maldonado Work Phone: [facility] Start: 11-09-2022 End: 11-09-2022 Emergency department patient visit Dr. Lobito Maldonado Work Phone: [facility] Start: 11-09-2022 End: 11-09-2022 Dr. 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 Lobito Maldonado Work Phone: [facility] Start: 10-27-2022 Dr. Lobito Dwyer Work Phone: [facility] Start: 10-26-2022 End: 10-27-2022 Evaluation and management of inpatient Dr. Lobito Maldonado Work Phone: [facility] Start: 10-26-2022 End: 10-27-2022 Dr. Lobito Maldonado Work Phone: [facility] Start: 10-26-2022 Non-patient / Non-visit Dr. Lobito Maldonado Work Phone: [facility] Start: 10-26-2022 Dr. Lobito Dwyer Work Phone: [facility] Start: 10-26-2022 Evaluation and management of inpatient Dr. Lobito Maldonado Work Phone: [facility] Start: 10-26-[address] Ash Maldonado Work Phone: [facility] Work Phone: Start: 10-17-2022 Refill Lobito pollack MD Work Phone: [facility] [place] Comment on above: Refill Request Start: 09-20-2022 Refill Lobito pollack MD Work Phone: [facility] [place] Comment on above: Refill Request Start: 09-08-2022 Non-patient / Non-visit Dr. Lobito Maldonado Work Phone: [facility] Start: 09-08-2022 Dr. Lobito Dwyer Work Phone: [facility] Start: 09-07-2022 Non-patient / Non-visit Dr. Lobito Maldonado Work Phone: [facility] Start: 09-07-2022 Dr. Lobito Dwyer Work Phone: [facility] Start: 09-06-2022 Non-patient / Non-visit Dr. Lobito Maldonado Work Phone: [facility] Start: 09-06-2022 End: 09-08-2022 Evaluation and management of inpatient [facility] Maldonado [facility] Start: 09-06-2022 End: 09-08-2022 Dr. [facility] Maldonado [facility] Start: 08-19-2022 End: 08-19-2022 Subsequent hospital visit by physician [facility] Work Phone: Radiology Comment on above: Left hip pain [M25.5 52] Start: 08-19-2022 End: 08-19-2022 Patient encounter procedure Lobito Maldonado MD Work Phone: [facility] [place] Comment on above: Low back pain, unspe cified back pain laterality, unspecified chronicity, unspecified whether sciatica present (Primary Dx); Cervical spondylosis; Left hip pain; Need for vaccination; Mixed hyperlipidemia; Type 2 diabetes mellitus without complication, with long-term current use of insulin (HCC); Prostate cancer (HCC) Start: 08-08-2022 End: 08-08-[address] Lobito Maldonado Work Phone: [facility] Work Phone: Start: 08-08-2022 End: 08-08-[address] Lobito Maldonado Work Phone: [facility] Start: 08-08-2022 End: 08-08-[address] Lobito Maldonado Work Phone: [facility] Start: 07-18-2022 Non-patient / Non-visit Dr. Lobito Maldonado Work Phone: [facility] Start: 07-17-2022 Non-patient / Non-visit Dr. Lobito Maldonado Work Phone: [facility] Start: 07-16-2022 Non-patient / Non-visit Dr. Lobito Maldonado Work Phone: [facility] Start: 07-15-2022 Non-patient / Non-visit Dr. Lobito Maldonado Work Phone: [facility] Start: 07-14-2022 Non-patient / Non-visit Dr. Lobito Maldonado Work Phone: [facility] Start: 07-13-2022 End: 07-18-2022 Evaluation and management of inpatient [facility]. [facility] Maldonado [facility] Start: 07-13-2022 Non-patient / Non-visit Dr. Lobito Maldonado Work Phone: [facility] Start: 07-13-2022 Evaluation and management of inpatient Dr. Lobito Maldonado Work Phone: [facility] 3 Start: 07-13-[address] Ash Maldonado Work Phone: [facility] Work Phone: Start: 07-04-2022 End: 07-04-2022 Emergency department patient visit Dr. Lobito Maldonado Work Phone: [facility] Start: 07-04-2022 End: 07-04-[address] Lobito Maldonado Work Phone: [facility] Start: 06-29-2022 Refill Lobito pollack MD Work Phone: [facility] [place] Comment on above: Refill Request Start: 06-02-2022 Refill Lobito pollack MD Work Phone: [facility] [place] Comment on above: Refill Request Start: 05-31-2022 Telephone encounter Lobito de leon MD Work Phone: [facility] [place] Comment on above: Results Start: 05-23-2022 Telephone encounter Trini foote DO Work Phone: [facility] Comment on above: Results Start: 05-16-2022 End: 05-16-2022 Patient encounter procedure Lobito Maldonado MD Work Phone: [facility] [place] Comment on above: Type 2 diabetes nanda itus without complication, with long-term current use of insulin (HCC) (Primary Dx); Seasonal allergic rhinitis due to pollen; Mixed hyperlipidemia; 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 epilepticus, unspecified epilepsy type (HCC); Hypertension, essential; GERD without esophagitis; Vitamin D deficiency; Cervical spondylosis; Lower urinary tract symptoms (LUTS); 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; Posttraumatic stress disorder Start: 05-05-2022 Refill Lobito pollack MD Work Phone: [facility] [place] Comment on above: Refill Request Start: 04-15-2022 End: 04-15-2022 Patient encounter procedure WALL WORKERJocelynn Elliott WALL WORKER Work Phone: [facility] Start: 04-08-2022 Refill Lobito pollack MD Work Phone: [facility] [place] Comment on above: Refill Request Start: 2022 End: 2022 Patient encounter procedure WALL WORKERJocelynn Elliott WALL WORKER Work Phone: [facility] Start: 03-25-2022 End: 03-25-2022 Patient encounter procedure TORY Elliott NP Work Phone: [facility] Start: 03-25-2022 End: 03-25-2022 Patient encounter procedure WALL WORKERJocelynn Elliott WALL WORKER Work Phone: [facility] Start: 03-11-2022 Telephone encounter Isidoro Downey tom AUDIT PRACTICE INTERN Work Phone: Psychology Comment on above: Consult (Initial [facility] W Pt Outreach) Start: 03-10-2022 End: 03-10-2022 Office outpatient visit 40 minutes Lobito Maldonado MD Work Phone: [facility] [place] Comment on above: Posttraumatic stress disorder (Primary Dx); 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; Mixed hyperlipidemia; Type 2 diabetes mellitus without complication, with long-term current use of insulin (HCC) Start: 03-09-2022 Refill Souleymane Elliott APRN.TRAFFIC OFFICER, DNP Work Phone: [facility] Comment on above: Refill Request Start: 03-06-2022 End: 03-07-2022 Emergency department patient visit WALL WORKER-C Souleymane Elliott WALL WORKER Work Phone: [facility] Start: 03-04-2022 Non-patient / Non-visit WALL WORKER-C Souleymane Elliott WALL WORKER Work Phone: [facility] Start: 03-03-2022 Non-patient / Non-visit WALL WORKER-C Souleymane Elliott WALL WORKER Work Phone: [facility] Start: 03-02-2022 Non-patient / Non-visit WALL WORKER-C Souleymane Elliott WALL WORKER Work Phone: [facility] Start: 03-02-2022 Non-patient / Non-visit WALL WORKER-C Souleymane Elliott WALL WORKER Work Phone: [facility] Start: 03-01-2022 Telephone encounter Souleymane easton APRN.TRAFFIC OFFICER, DNP Work Phone: [facility] Comment on above: Patient Update Start: 03-01-2022 Non-patient / Non-visit WALL WORKER-C Souleymane Elliott WALL WORKER Work Phone: [facility] Start: 02-28-2022 Non-patient / Non-visit WALL WORKER-C Souleymane Elliott WALL WORKER Work Phone: [facility] Start: 02-27-2022 Non-patient / Non-visit WALL WORKER-C Souleymane Elliott WALL WORKER Work Phone: [facility] Start: 02-27-2022 End: 03-04-2022 Evaluation and management of inpatient WALL WORKER-C Souleymane Elliott WALL WORKER [facility] Start: 01-13-2022 Refill Souleymane Elliott COMPRESSOR OPERATOR ADJUSTER.TRAFFIC OFFICER, DNP Work Phone: [facility] Comment on above: Refill Request Start: 01-03-2022 End: 01-03-2022 Patient encounter procedure WALL WORKER-C Souleymane Elliott WALL WORKER Work Phone: [facility] Start: 12-16-2021 Refill Souleymane Robin COMPRESSOR OPERATOR ADJUSTER.TRAFFIC OFFICER, DNP Work Phone: [facility] Comment on above: Refill Request Start: 12-10-2021 End: 12-11-2021 Emergency department patient visit EUGENIO BREEN [facility] Start: 12-09-2021 Non-patient / Non-visit WALL WORKER-C Souleymane Elliott WALL WORKER Work Phone: [facility] Start: 12-08-2021 Non-patient / Non-visit WALL WORKER-C Souleymane Elliott WALL WORKER Work Phone: [facility] Start: 12-08-2021 End: 12-09-2021 Evaluation and management of inpatient WALL WORKER-C Souleymane Elliott WALL WORKER Work Phone: [facility] Start: 04-11-2018 [address] Linares [facility] Start: 04-10-2018 Patient encounter [address]vin Linares [facility] Procedures Date Procedure Procedure Detail Performing Clinician Start: 03-16-[address] Lobito Maldonado MD Work Phone: Start: 02-12-2025 Adult depression scr eening assessment Lobito Maldonado MD Work Phone: Start: 07-18-2024 Visual field xm uni/ bi w/interp extended exam Kat Galindo OD Work Phone: Start: 02-05-2024 Radiologic exam ches t 2 views Alis Elizalde Toma COMPRESSOR OPERATOR ADJUSTER.TRAFFIC OFFICER Work Phone: Start: 02-05-2024 Adult depression scr eening assessment Lobito Maldonado MD Work Phone: Start: 01-16-2024 End: 01-16-2024 Visual field xm uni/bi w/interp extended exam Puja Carrerarach OD Work Phone: Start: 01-07-2024 Computed tomography [...] YR, QUADRIVALENT (AFLURIA, FLULAVAL, FLUZONE) Alis Older COMPRESSOR OPERATOR ADJUSTER.TRAFFIC OFFICER Work Phone: Start: 06-05-2023 Radiologic exam ches [...] Work Phone: Start: 04-15-2022 Ultrasonography of abdomen WALL WORKER-Velma Elliott WALL WORKER Work Phone: Start: 04-15-2022 Ultrasound elastography WALL WORKER-C Souleymane Elliott WALL WORKER Work Phone: Start: 2022 Computed tomography of abdomen and pelvis with contrast WALL WORKER-Velma Elliott WALL WORKER Work Phone: Start: 03-10-2022 Adult depression scr eening assessment Lobito Maldonado MD Work Phone: Start: 03-03-2022 Computed tomography of abdomen and pelvis with contrast WALL WORKER-C Souleymane Elliott WALL WORKER Work Phone: Start: 02-27-2022 Computed tomography of abdomen and pelvis with intravenous contrast WALL WORKER-C Souleymane Elliott WALL WORKER Work Phone: Start: 12-08-2021 Computed tomography of abdomen and pelvis with intravenous contrast WALL WORKER-C Souleymane Elliott WALL WORKER Work Phone: Start: 12-08-2021 Plain chest X-ray WALL WORKER-Velma Elliott WALL WORKER Work Phone: Start: 12-07-2021 End: 12-07-2021 Viral antigen assay WALL WORKER-C Souleymane Elliott WALL WORKER Work Phone: Start: 06-17-2019 Layla easton COMPRESSOR OPERATOR ADJUSTER.TRAFFIC OFFICER, DNP Work Phone: Start: 06-08-2017 End: 06-08-2017 [...] Des Corrales MD Start: 02-26-2014 End: 06-08-2017 SEMAJ Brown RN Start: 02-26-2014 End: 02-26-2014 Thyrotropin [Units/volume] in Serum or Plasma Des Corrales MD Start: 02-26-2014 End: 02-26-2014 Thyroxine (T4) [Mass/volume] in Serum or Plasma Des Corrales MD Start: 03-26-2013 Adult depression scr eening assessment Souleymane Elliott APRN.TRAFFIC OFFICER, DNP Work Phone: Viral antigen assay WALL WORKERJocelynn Elliott WALL WORKER Work Phone: Plan of Treatment Date Care Activity Detail Author Start: 03-26-2031 [facility] Start: 02-04-2029 Prostate specific antigen measurement Prostate Cancer Screening Discussion [facility] Start: 05-19-2027 PROSTATE CANCER SCREENING DISCUSSION PROSTATE CANCER SCREENING DISCUSSION [facility] Start: 05-19-2027 Prostate specific antigen measurement Prostate Cancer Screening Discussion [facility] Start: 03-24-2026 Annual PCP Team Chronic Disease Visit Annual PCP Team Chronic Disease Visit [facility] Start: 02-12-2026 Annual PCP Team Chronic Disease Visit Annual PCP Team Chronic Disease Visit [facility] Start: 02-12-2026 Depression Screening Depression Screening [facility] Start: 02-12-2026 Hepatitis B screening Urine Albumin:Creatinine Ratio [facility] Start: 02-12-2026 Hepatitis B surface antibody level LDL Cholesterol [facility] Start: 02-12-2026 Prostate specific antigen measurement Prostate Cancer Screening Discussion [facility] Start: 01-16-2026 Glaucoma screening Dilated Retinal Exam [facility] Start: 11-17-2025 PROSTATE CANCER SCREENING DISCUSSION PROSTATE CANCER SCREENING DISCUSSION [facility] Start: 10-24-2025 Annual PCP Team Chronic Disease Visit Annual PCP Team Chronic Disease Visit [facility] Start: 10-24-2025 BP Controlled (<130/80) BP Controlled (<130/80) [facility] Start: 10-24-2025 Diabetic foot examination Diabetic Foot Exam [facility] Start: 09-29-2025 End: 09-29-2025 Patient encounter procedure 09/29/2025 2:00 PM EST Office Visit Cardiology [address] [place] [address] Hermes Monroe MD [address], [address] [place] [address] Hypertension, essential [I10]; 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 [I25.10] Cardiology Comment on above: Hypertension, essential [I10]; 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 [I25.10] Start: 08-15-2025 End: 08-15-2025 Patient encounter procedure 08/15/2025 3:20 PM EST Office Visit [facility] Medicine [place] [address] [place], [place] [address] Lobito Maldonado MD [address] [facility] [address] follow up 6 months [facility] [place] Comment on above: follow up 6 months Start: 07-18-2025 End: 07-18-2025 Patient encounter procedure 07/18/2025 1:00 PM EDT Office Visit [facility] Ophthalmology [address] [place] [address] Kat Galindo, OD [address] [place] [address] 6 MTH F/U for 24-2 and IOP check. ( needs 30 min. appt ) Ophthalmology Comment on above: 6 MTH F/U for 24-2 and IOP check. ( need s 30 min. appt ) Start: 07-03-2025 Annual PCP Team Chronic Disease Visit Annual PCP Team Chronic Disease Visit [facility] Start: 07-03-2025 BP Controlled (<130/80) BP Controlled (<130/80) [facility] Start: 05-15-2025 Hemoglobin A1c measurement [facility] Start: 03-24-2025 End: 03-24-2025 Patient encounter procedure 03/24/2025 11:20 AM EDT Office Visit [facility] [place] [address] [place] [address] Alis Chua, COMPRESSOR OPERATOR ADJUSTER.TRAFFIC OFFICER [address] [place] [address] [facility] ER Follow Up 03/16/2025 Pancreatitis [facility] [place] Comment on above: [facility] ER Follow Up 03/16/2025 Pancreatitis Start: 03-16-2025 [facility] Start: 03-16-2025 [facility] Start: 03-16-2025 Anoscopy dx w/collj spec br/wa spx when prfrmd DIAGNOSTIC ANOSCOPY SPX [facility] Start: 02-06-2025 End: 02-06-2025 Patient encounter procedure 02/06/2025 1:00 PM EDT Office Visit [facility] [place] [address] [place] [address] Lobito Maldonado MD [address] [place] [address] Medicare Wellness w/3 month follow-up [facility] [place] Comment on above: Medicare Wellness w/3 month follow-up Start: 02-04-2025 Annual PCP Team Chronic Disease Visit Annual PCP Team Chronic Disease Visit [facility] Start: 02-04-2025 BP Controlled (<130/80) BP Controlled (<130/80) [facility] Start: 02-04-2025 Depression Screening Depression Screening [facility] Start: 02-04-2025 Hepatitis B screening Urine Albumin:Creatinine Ratio [facility] Start: 02-04-2025 Hepatitis B surface antibody level LDL Cholesterol [facility] Start: 02-04-2025 Shingrix Vaccine (1 of 2) Shingrix Vaccine (1 of 2) [facility] Comment on above: Postponed from 2015 (Declined at t his time) Start: 01-22-2025 End: 04-23-2025 Comprehensive metabolic 2000 panel - Serum or Plasma COMPREHENSIVE METABOLIC PANEL Lab Routine Mixed hyperlipidemia Expected: 01/22/2025, Expires: 04/23/2025 [facility] Work Phone: Comment on above: Expected: 01/22/2025, Expires: Start: 01-22-2025 End: 04-23-2025 Hemoglobin A1c in Blood HEMOGLOBIN A1C Lab Routine Type 2 diabetes mellitus without complication, with long-term current use of insulin (HCC) Expected: 01/22/2025, Expires: 04/23/2025 [facility] Comment on above: Expected: 01/22/2025, Expires: Start: 01-22-2025 End: 04-23-2025 levETIRAcetam [Mass/volume] in Serum or Plasma LEVETIRACETAM Lab Routine Nonintractable generalized 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 (HCC) Expected: 01/22/2025, Expires: 04/23/2025 [facility] Comment on above: Expected: 01/22/2025, Expires: Start: 01-22-2025 End: 04-23-2025 Lipid 1996 panel - Serum or Plasma LIPID PANEL BASIC Lab Routine Mixed hyperlipidemia Expected: 01/22/2025, Expires: 04/23/2025 [facility] Comment on above: Expected: 01/22/2025, Expires: Start: 01-22-2025 End: 04-23-2025 Magnesium [Mass/volume] in Serum or Plasma MAGNESIUM Lab Routine Hypomagnesemia Expected: 01/22/2025, Expires: 04/23/2025 [facility] Comment on above: Expected: 01/22/2025, Expires: Start: 01-22-2025 End: 04-23-2025 Microalbumin/Creatinine [Mass Ratio] in Urine ALBUMIN/CREATININE RATIO, URINE Lab Routine Type 2 diabetes mellitus without complication, with long-term current use of insulin (HCC) Expected: 01/22/2025, Expires: 04/23/2025 [facility] Comment on above: Expected: 01/22/2025, Expires: Start: 01-22-2025 End: 04-23-2025 Prostate specific Ag [Mass/volume] in Serum or Plasma PROSTATE-SPECIFIC ANTIGEN DIAGNOSTIC Lab Routine Prostate cancer (HCC) Expected: 01/22/2025, Expires: 04/23/2025 [facility] Comment on above: Expected: 01/22/2025, Expires: Start: 01-20-2025 Hemoglobin A1c measurement HbA1C [facility] Start: 01-16-2025 End: 01-16-2025 Patient encounter procedure 01/16/2025 12:30 PM EDT Office Visit [facility] Op[facility] [address] [place] [address] Kat Galindo, OD [address] [place] [address] 6 MO OV for complete with dilatio,OCT nerve and 24-2 OS Ophthalmology Comment on above: 6 MO OV for complete with dilatio,OCT ne rve and 24-2 OS Start: 01-15-2025 Glaucoma screening Dilated Retinal Exam [facility] Start: 11-28-2024 Covid-19 Vaccine ( season) Covid-19 Vaccine () [facility] Start: 10-24-2024 Annual PCP Team Chronic Disease Visit Annual PCP Team Chronic Disease Visit [facility] Start: 10-24-2024 BP Controlled (<130/80) BP Controlled (<130/80) [facility] Start: 10-24-2024 Diabetic foot examination Diabetic Foot Exam [facility] Start: 10-24-2024 End: 10-24-2024 Patient encounter procedure 10/24/2024 2:00 PM EST Office Visit [facility] [place] [address] [place] [address] Lobito Maldonado MD [address] [place], [place] [address] 3 month follow-up [facility] [place] Comment on above: 3 month follow-up Start: 10-23-2024 End: 10-23-2024 Patient encounter procedure 10/23/2024 10:00 AM EST Office Visit [facility] [place] [address] [place], [place] [id number] Lobito Maldonado MD [address] [place] [address] 3 month follow-up [facility] [place] Comment on above: 3 month follow-up Start: 09-30-2024 End: 09-30-2024 Patient encounter procedure 09/30/2024 2:00 PM EST Office Visit [facility] [place] [address] [place] [address] Lobito Maldonado MD [address] [place] [address] 3 month follow-up [facility] [place] Comment on above: 3 month follow-up Start: 07-18-2024 End: 07-18-2024 Patient encounter procedure 07/18/2024 1:00 PM EDT Office Visit [facility] Op[facility] [address] [place] [address] Kat Galinod, OD [address] [place] [address] 6 MTH F/U Glaucoma IOP check and possible testing Ophthalmology Comment on above: 6 MTH F/U Glaucoma IOP check and possibl e testing Start: 07-03-2024 End: 10-02-2024 CBC panel - Blood by Automated count COMPLETE BLOOD COUNT Lab Routine Hypertension, essential Expected: 07/03/2024, Expires: 10/02/2024 [facility] Comment on above: Expected: 07/03/2024, Expires: Start: 07-03-2024 End: 10-02-2024 Comprehensive metabolic 2000 panel - Serum or Plasma COMPREHENSIVE METABOLIC PANEL Lab Routine 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) Expected: 07/03/2024, Expires: 10/02/2024 [facility] Comment on above: Expected: 07/03/2024, Expires: Start: 07-03-2024 End: 10-02-2024 Hemoglobin A1c in Blood HEMOGLOBIN A1C Lab Routine 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) Expected: 07/03/2024, Expires: 10/02/2024 [facility] Comment on above: Expected: 07/03/2024, Expires: Start: 06-21-2024 End: 06-21-2024 Patient encounter procedure 06/21/2024 2:40 PM EDT Office Visit [facility] [place] [address] [place] [address] Lobito Maldonado MD [address] [facility] [place] [address] f/u [facility] [place] Comment on above: f/u Start: 06-17-2024 Colonoscopy COLONOSCOPY [facility] Start: 06-17-2024 COLORECTAL CANCER SCREENING COLORECTAL CANCER SCREENING [facility] Start: 06-17-2024 Screening for malignant neoplasm of colon [facility] Start: 06-12-2024 End: 06-12-2024 Patient encounter procedure 06/12/2024 3:20 PM EDT Office Visit [facility] [place] [address] [place] [address] Lobito Maldonado MD [address] [facility] [place] [address] 4 mo f/u [facility] [place] Comment on above: 4 mo f/u Start: 06-12-2024 End: 06-12-2024 Patient encounter procedure 06/12/2024 12:20 PM EDT Office Visit [facility] [place] [address] [place] [address] Alis Chua, COMPRESSOR OPERATOR ADJUSTER.TRAFFIC OFFICER [address] [facility] [place] [address] 4 mo f/u [facility] [place] Comment on above: 4 mo f/u Start: 06-09-2024 Annual PCP Team Chronic Disease Visit Annual PCP Team Chronic Disease Visit [facility] Start: 05-26-2024 Covid-19 Vaccine () Covid-19 Vaccine () [facility] Start: 05-26-2024 Influenza vaccination Influenza Vaccine (#1) [facility] Start: 05-19-2024 3 comp foot exam completed DIABETIC FOOT EXAM [facility] Start: 05-07-2024 Hemoglobin A1c measurement HbA1C [facility] Start: 05-04-2024 ANNUAL PCP TEAM CHRONIC DISEASE VISIT ANNUAL PCP TEAM CHRONIC DISEASE VISIT [facility] Start: 05-04-2024 BP CONTROLLED (<130/80) BP CONTROLLED (<130/80) [facility] Start: 05-04-2024 Hepatitis B screening URINE ALBUMIN:CREATININE RATIO [facility] Start: 04-29-2024 End: 04-29-2024 Nursing evaluation of patient and report 04/29/2024 1:15 PM EDT Nurse Visit [facility] Medicine [place] [address] [place] [address] Nurse, [place] [address] [place] [address] 3rd dose Hep B [facility] [place] Comment on above: 3rd dose Hep B Start: 04-23-2024 Hepatitis B Vaccine (3 of 3 - 19+ 3-dose series) Hepatitis B Vaccine (3 of 3 - 19+ 3-dose series) [facility] Start: 02-23-2024 End: 02-23-2024 Patient encounter procedure 02/23/2024 3:30 PM EDT Office Visit Cardiology [address] [place] [address] Tachycardia [R00.0]; Shortness of breath [R06.02] Cardiology Comment on above: Tachycardia [R00.0]; Shortness of breath [R06.02] Start: 02-23-2024 End: 02-23-2024 Patient encounter procedure 02/23/2024 11:20 AM EDT Office Visit [facility] [place] [address] [place] [address] Alis Chua, COMPRESSOR OPERATOR ADJUSTER.TRAFFIC OFFICER [address] [place] [address] medicare wellness/follow up [facility] [place] Comment on above: medicare wellness/follow up Start: 02-22-2024 Glaucoma screening Dilated Retinal Exam [facility] Start: 02-22-2024 Hepatitis C antibody, confirmatory test DILATED RETINAL EXAM [facility] Start: 02-08-2024 End: 02-08-2024 Patient encounter procedure 02/08/2024 3:00 PM EDT Office Visit Podiatry [address] [place] [address] Danilo Benitez [address] [place] [address] Type 2 diabetes mellitus without complication, with long-term current use of insulin (HCC) [E11.9, Z79.4]; Dermatophytosis of nail [B35.1] Podiatry Comment on above: Type 2 diabetes mellitus without complic ation, with long-term current use of insulin (HCC) [E11.9, Z79.4]; Dermatophytosis of nail [B35.1] Start: 02-07-2024 ANNUAL PCP TEAM CHRONIC DISEASE VISIT ANNUAL PCP TEAM CHRONIC DISEASE VISIT [facility] Start: 02-05-2024 End: 05-06-2024 Thyrotropin [Units/volume] in Serum or Plasma [facility] Comment on above: Expected: 02/05/2024, Expires: Start: 01-26-2024 Hepatitis B surface antibody level LDL CHOLESTEROL [facility] Start: 01-24-2024 End: 01-24-2024 Patient encounter procedure 01/24/2024 4:00 PM EDT Office Visit [facility] [place] [address] [place] [address] Lobito Maldonado MD [address] [place] [address] hospital follow up [facility] [place] Comment on above: hospital follow up Start: 01-23-2024 Hemoglobin A1c measurement HbA1C [facility] Start: 01-08-2024 Patient discharge [facility] Start: 01-07-2024 Following clinical pathway protocol [facility] Start: 01-07-2024 Ambulation without limitation [facility] Start: 01-07-2024 Assessment of risk of venous thromboembolism [facility] Start: 01-07-[address] [facility] Start: 01-07-2024 Insertion of catheter into peripheral vein [facility] Start: 01-07-2024 Notification of physician [facility] Start: 01-07-2024 Providing care according to standard [facility] Start: 01-07-2024 [facility] Start: 01-07-2024 Admission procedure [facility] Start: 01-07-2024 Hospital admission, emergency, from emergency room, medical nature [facility] Start: 01-07-2024 Triacylglycerol lipase measurement [facility] Start: 12-16-2023 BP CONTROLLED (<130/80) BP CONTROLLED (<130/80) [facility] Start: 12-10-2023 ANNUAL PCP TEAM CHRONIC DISEASE VISIT ANNUAL PCP TEAM CHRONIC DISEASE VISIT [facility] Start: 12-10-2023 BP CONTROLLED (<130/80) BP CONTROLLED (<130/80) [facility] Start: 11-21-2023 Hepatitis B Vaccine (2 of 3 - 19+ 3-dose series) Hepatitis B Vaccine (2 of 3 - 19+ 3-dose series) [facility] Start: 11-20-2023 [facility] Start: 11-07-2023 ANNUAL PCP TEAM CHRONIC DISEASE VISIT ANNUAL PCP TEAM CHRONIC DISEASE VISIT [facility] Start: 11-07-2023 [facility] Start: 11-04-2023 Hemoglobin A1c/Hemoglobin.total in Blood HBA1C [facility] Start: 10-10-2023 [facility] Start: 10-10-2023 [facility] Start: 09-25-2023 Behavioral Health Screening Behavioral Health Screening [facility] Start: 08-19-2023 ANNUAL PCP TEAM CHRONIC DISEASE VISIT ANNUAL PCP TEAM CHRONIC DISEASE VISIT [facility] Start: 08-19-2023 COVID-19 VACCINE (5 - Booster) COVID-19 VACCINE (5 - Booster) [facility] Comment on above: Postponed from 05/13/2022 (Declined at t his time) Start: 08-09-2023 [facility] Start: 05-26-2023 Covid-19 Vaccine ( season) Covid-19 Vaccine ( season) [facility] Start: 05-26-2023 Influenza vaccination INFLUENZA (#1) [facility] Start: 05-19-2023 Hepatitis B screening URINE ALBUMIN:CREATININE RATIO [facility] Start: 05-19-2023 Hepatitis B surface antibody level LDL CHOLESTEROL [facility] Start: 05-16-2023 ANNUAL PCP TEAM CHRONIC DISEASE VISIT ANNUAL PCP TEAM CHRONIC DISEASE VISIT [facility] Start: 05-16-2023 BP CONTROLLED (<130/80) BP CONTROLLED (<130/80) [facility] Start: 04-30-2023 Diagnostic radiography of abdomen Acute Abdomen Inc Chest [facility] Start: 04-30-2023 XR Chest and Abdomen Views [facility] Start: 04-27-2023 Hemoglobin A1c/Hemoglobin.total in Blood HBA1C [facility] Start: 03-10-2023 3 comp foot exam completed DIABETIC FOOT EXAM [facility] Start: 03-10-2023 Adult depression screening assessment DEPRESSION SCREENING [facility] Start: 03-10-2023 ANNUAL PCP TEAM CHRONIC DISEASE VISIT ANNUAL PCP TEAM CHRONIC DISEASE VISIT [facility] Start: 02-16-2023 End: 04-18-2023 CBC panel - Blood by Automated count CBC Lab Routine Type 2 diabetes mellitus without complication, with long-term current use of insulin (HCC) Expected: 02/16/2023, Expires: 04/18/2023 [facility] Work Phone: Comment on above: Expected: 02/16/2023, Expires: 3 Start: 02-16-2023 End: 04-18-2023 Comprehensive metabolic 2000 panel - Serum or Plasma COMP METABOLIC PANEL Lab Routine Type 2 diabetes mellitus without complication, with long-term current use of insulin (HCC) Expected: 02/16/2023, Expires: 04/18/2023 [facility] Work Phone: Comment on above: Expected: 02/16/2023, Expires: 3 Start: 02-16-2023 End: 04-18-2023 Hemoglobin A1c in Blood HGB A1C Lab Routine Type 2 diabetes mellitus without complication, with long-term current use of insulin (HCC) Expected: 02/16/2023, Expires: 04/18/2023 [facility] Work Phone: Comment on above: Expected: 02/16/2023, Expires: 3 Start: 02-16-2023 End: 04-18-2023 Lipid 1996 panel - Serum or Plasma LIPID PANEL BASIC Lab Routine Type 2 diabetes mellitus without complication, with long-term current use of insulin (HCC) Expected: 02/16/2023, Expires: 04/18/2023 [facility] Work Phone: Comment on above: Expected: 02/16/2023, Expires: Start: 12-02-2022 Patient discharge [facility] Start: 11-29-2022 Following clinical pathway protocol [facility] Start: 11-29-2022 Assessment of risk of venous thromboembolism [facility] Start: 11-29-[address] [facility] Start: 11-29-2022 Inhalation therapy procedure [facility] Start: 11-29-2022 Insertion of catheter into peripheral vein [facility] Start: 11-29-2022 Introduction of urinary catheter [facility] Start: 11-29-2022 Measuring intake and output [facility] Start: 11-29-2022 Oxygen therapy [facility] Start: 11-29-2022 Patient referral to dietitian [facility] Start: 11-29-2022 Providing care according to standard [facility] Start: 11-29-2022 Provision of activity privileges [facility] Start: 11-29-2022 Referral to gastroenterology service [facility] Start: 11-29-2022 Referral to service [facility] Start: 11-29-2022 [facility] Start: 11-29-2022 Verification routine [facility] Start: 11-29-2022 Admission procedure [facility] Start: 11-19-2022 Hemoglobin A1c/Hemoglobin.total in Blood HBA1C [facility] Start: 10-27-2022 Patient discharge [facility] Start: 10-26-2022 Admission procedure [facility] Start: 10-26-2022 Following clinical pathway protocol [facility] Start: 10-26-2022 Assessment of risk of venous thromboembolism [facility] Start: 10-26-[address] [facility] Start: 10-26-2022 Insertion of catheter into peripheral vein [facility] Start: 10-26-2022 Providing care according to standard [facility] Start: 10-26-2022 Provision of activity privileges [facility] Start: 10-26-2022 [facility] Start: 10-26-2022 Admission procedure [facility] Start: 10-05-2022 Hepatitis C antibody, confirmatory test DILATED RETINAL EXAM [facility] Start: 09-25-2022 DEPRESSION ASSESSMENT DEPRESSION ASSESSMENT [facility] Start: 09-09-2022 [facility] Work Phone: Start: 09-08-2022 Patient discharge [facility] Start: 09-06-2022 [facility] Start: 09-06-[address] [facility] Start: 09-06-2022 Notification of physician [facility] Start: 09-06-[address] [facility] Start: 09-06-2022 Medication education [facility] Start: 09-06-2022 Application of intermittent pneumatic compression device [facility] Start: 09-06-2022 Following clinical pathway protocol [facility] Start: 09-06-2022 Ambulation without limitation [facility] Start: 09-06-2022 Assessment of risk of venous thromboembolism [facility] Start: 09-06-2022 Incentive spirometry [facility] Start: 09-06-2022 Insertion of catheter into peripheral vein [facility] Start: 09-06-2022 Measuring intake and output [facility] Start: 09-06-2022 Providing care according to standard [facility] Start: 09-06-2022 [facility] Start: 09-06-2022 Admission procedure [facility] Start: 09-06-2022 Verification routine [facility] Work Phone: Start: 09-06-2022 Patient referral to dietitian [facility] Start: 09-06-2022 [facility] Start: 07-18-2022 Patient discharge [facility] Start: 07-14-2022 Blood chemistry [facility] Work Phone: Start: 07-14-2022 Electrocardiographic procedure [facility] Work Phone: Start: 07-13-2022 Admission procedure [facility] Start: 07-13-2022 Application of intermittent pneumatic compression device [facility] Start: 07-13-2022 Following clinical pathway protocol [facility] Start: 07-13-2022 Ambulation without limitation [facility] Start: 07-13-2022 Assessment of risk of venous thromboembolism [facility] [facility] Start: 07-13-[address] [facility] Start: 07-13-2022 Insertion of catheter into peripheral vein [facility] Start: 07-13-2022 Notification of physician [facility] Start: 07-13-2022 Oxygen therapy [facility] Work Phone: Start: 07-13-2022 Providing care according to standard [facility] Start: 07-13-2022 [facility] Start: 07-13-2022 Electrocardiographic procedure [facility] Work Phone: Start: 07-13-2022 Verification routine [facility] Work Phone: Start: 07-13-2022 Admission procedure [facility] Start: 05-26-2022 Influenza vaccination [facility] Start: 05-21-2022 ANNUAL PCP TEAM CHRONIC DISEASE VISIT ANNUAL PCP TEAM CHRONIC DISEASE VISIT [facility] Start: 05-10-2022 End: 07-10-2022 ALBUMIN/CREAT RATIO RND UR ALBUMIN/CREAT RATIO RND UR Lab Routine Type 2 diabetes mellitus without complication, with long-term current use of insulin ([facility]) Expected: 05/10/2022, Expires: 07/10/2022 [facility] Work Phone: Comment on above: Expected: 05/10/2022, Expires: 2 Start: 05-10-2022 End: 07-10-2022 CBC panel - Blood by Automated count CBC Lab Routine 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 Expected: 05/10/2022, Expires: 07/10/2022 [facility] Work Phone: Comment on above: Expected: 05/10/2022, Expires: 2 Start: 05-10-2022 End: 07-10-2022 Comprehensive metabolic 2000 panel - Serum or Plasma COMP METABOLIC PANEL Lab Routine Type 2 diabetes mellitus without complication, with long-term current use of insulin (HCC) Expected: 05/10/2022, Expires: 07/10/2022 [facility] Work Phone: Comment on above: Expected: 05/10/2022, Expires: 2 Start: 05-10-2022 End: 07-10-2022 Hemoglobin A1c in Blood HGB A1C Lab Routine Type 2 diabetes mellitus without complication, with long-term current use of insulin (HCC) Expected: 05/10/2022, Expires: 07/10/2022 [facility] Work Phone: Comment on above: Expected: 05/10/2022, Expires: 2 Start: 05-10-2022 End: 07-10-2022 Lipid 1996 panel - Serum or Plasma LIPID PANEL BASIC Lab Routine Type 2 diabetes mellitus without complication, with long-term current use of insulin (HCC) Expected: 05/10/2022, Expires: 07/10/2022 [facility] Work Phone: Comment on above: Expected: 05/10/2022, Expires: 2 Start: 03-06-2022 Emergency department visit limited/minor prob EMERGENCY DEPT VISIT [facility] Work Phone: Start: 03-06-2022 Iv infusion hydration initial 31 min-1 hour HYDRATION IV INFUSION INIT [facility] Work Phone: Start: 03-04-2022 Patient discharge [facility] Work Phone: Start: 03-02-2022 Referral to gastroenterology service [facility] Work Phone: Start: 02-27-2022 Following clinical pathway protocol [facility] Work Phone: Start: 02-27-2022 Ambulation without limitation [facility] Work Phone: Start: 02-27-2022 Assessment of risk of venous thromboembolism [facility] Work Phone: Start: 02-27-[address] [facility] Work Phone: Start: 02-27-2022 Incentive spirometry [facility] Work Phone: Start: 02-27-2022 Inhalation therapy procedure [facility] Work Phone: Start: 02-27-2022 Insertion of catheter into peripheral vein [facility] Work Phone: Start: 02-27-2022 Measuring intake and output [facility] Work Phone: Start: 02-27-2022 Notification of physician [facility] Work Phone: Start: 02-27-2022 Providing care according to standard [facility] Work Phone: Start: 02-27-2022 [facility] Work Phone: Start: 02-27-2022 Admission procedure [facility] Work Phone: Start: 02-27-2022 Patient referral to dietitian [facility] Work Phone: Start: 12-17-2021 End: 02-16-2022 Magnesium [Mass/volume] in Serum or Plasma MAGNESIUM BLD Lab Routine 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 epilepticus, unspecified epilepsy type (HCC) Expected: 12/17/2021, Expires: 02/16/2022 [facility] Work Phone: Comment on above: Expected: 12/17/2021, Expires: Start: 12-09-2021 Patient discharge [facility] Work Phone: Start: 12-08-[address] [facility] Work Phone: Start: 12-08-2021 Notification of physician [facility] Work Phone: Start: 12-08-2021 [facility] Work Phone: Start: 12-08-2021 Suicide precautions [facility] Work Phone: Start: 12-08-2021 Following clinical pathway protocol [facility] Work Phone: Start: 12-08-2021 Ambulation without limitation [facility] Work Phone: Start: 12-08-2021 Assessment of risk of venous thromboembolism [facility] Work Phone: Start: 12-08-2021 Insertion of catheter into peripheral vein [facility] Work Phone: Start: 12-08-2021 Providing care according to standard [facility] Work Phone: Start: 12-08-2021 [facility] Work Phone: Start: 12-08-2021 Admission procedure [facility] Work Phone: Start: 12-08-2021 Consultation [facility] Work Phone: Start: 12-08-2021 Patient referral to dietitian [facility] Work Phone: Start: 12-07-2021 Referral to service [facility] Work Phone: Start: 12-07-2021 End: 12-07-2021 Suicide precautions [facility] Work Phone: Start: 12-02-2021 Hepatitis B screening URINE ALBUMIN:CREATININE RATIO [facility] Start: 12-01-2021 3 comp foot exam [facility] Start: 12-01-2021 BP CONTROLLED (<130/80) BP CONTROLLED (<130/80) [facility] Start: 11-17-2021 Hepatitis B surface antibody level LDL CHOLESTEROL [facility] Start: 10-03-2021 COVID-19 VACCINE (3 - Booster) COVID-19 VACCINE (3 - Booster) [facility] Start: 09-25-2021 DEPRESSION ASSESSMENT DEPRESSION ASSESSMENT [facility] Start: 06-28-2021 COVID-19 VACCINE (3 - Booster) COVID-19 VACCINE (3 - Booster) [facility] Start: 05-26-2021 Influenza vaccination INFLUENZA (#1) [facility] Start: 05-17-2021 Hemoglobin A1c/Hemoglobin.total in Blood HBA1C [facility] Start: 12-05-2017 End: 12-05-2017 Appointment [facility] Work Phone: Start: 06-08-2017 End: 06-08-2017 Follow Up Appt 6 months Follow Up Appt 6 months [facility] Work Phone: Start: 06-08-2017 End: 06-08-2017 MMM MMM [facility] Work Phone: Start: 07-05-2016 End: 07-05-2016 MEDICATION CARE MANAGER MEDICATION CARE MANAGER [facility] Work Phone: Start: 07-05-2016 End: 07-05-2016 Follow Up Appt 1 year Follow Up Appt 1 year [facility] Work Phone: Start: 06-30-2015 End: 06-30-2015 MEDICATION CARE MANAGER MEDICATION CARE MANAGER [facility] Work Phone: Start: 06-30-2015 End: 06-30-2015 Follow Up Appt 1 year Follow Up Appt 1 year [facility] Work Phone: Start: 2015 SHINGRIX VACCINE (1 of 2) SHINGRIX VACCINE (1 of 2) [facility] Start: 03-26-2014 Adult depression screening assessment DEPRESSION SCREENING [facility] Start: 02-26-2014 End: 03-19-2014 *BMP *BMP [facility] Work Phone: Start: 02-26-2014 End: 02-26-2014 MEDICATION CARE MANAGER MEDICATION CARE MANAGER [facility] Work Phone: Start: 02-26-2014 End: 02-28-2014 Echocardiography Echocardiogram (complete) [facility] Work Phone: Start: 02-26-2014 End: 06-08-2017 Follow Up Appt 6 months Follow Up Appt 6 months [facility] Work Phone: Start: 02-26-2014 End: 02-26-2014 Follow Up Appt Other Follow Up Appt Other [facility] Work Phone: Start: 02-26-2014 End: 02-26-2014 Magnesium mass conc *Magnesium [facility] Work Phone: Start: 02-26-2014 End: 06-08-2017 MMM MMM [facility] Work Phone: Start: 02-26-2014 End: 02-28-2014 T4 mass conc *T4 (Total) [facility] Work Phone: Start: 02-26-2014 End: 02-28-2014 Thyrotropin Qn *TSH [facility] Work Phone: Start: 2010 COLOGUARD (FIT-DNA) COLOGUARD (FIT-DNA) [facility] Start: [address] COLONOGRAPHY [facility] Start: 2010 FECAL OCCULT BLOOD FECAL OCCULT BLOOD [facility] Start: 2010 Screening for malignant neoplasm of colon [facility] Start: 2010 SIGMOIDOSCOPY SIGMOIDOSCOPY [facility] Start: 1984 HEPATITIS B (1 of 3 - Risk 3-dose series) HEPATITIS B (1 of 3 - Risk 3-dose series) [facility] Start: 1984 SHINGRIX VACCINE (1 of 2) SHINGRIX VACCINE (1 of 2) [facility] Start: 1984 Urine microalbumin profile DTAP,TDAP,TD (1 - Tdap) [facility] Start: 1981 ONE PNEUMOVAX PRIOR TO AGE 65 ONE PNEUMOVAX PRIOR TO AGE 65 [facility] Start: 1971 PNEUMOCOCCAL (1 - PCV) PNEUMOCOCCAL (1 - PCV) [facility] Start: 1965 HEPATITIS B (1 of 3 - 3-dose series) HEPATITIS B (1 of 3 - 3-dose series) [facility] Start: 1965 Hepatitis B Vaccine (1 of 3 - 3-dose series) Hepatitis B Vaccine (1 of 3 - 3-dose series) [facility] Anion gap measurement [facility] Work Phone: Blood ammonia measurement [facility] BUN/Creatinine ratio [facility] Work Phone: Calcium [Mass/volume ] in Serum or Plasma [facility] Work Phone: Carbon dioxide, tota l [Moles/volume] in Serum or Plasma [facility] Work Phone: Chloride [Moles/volu me] in Serum or Plasma [facility] Work Phone: COVID & INFLUENZA A/ B & RSV PCR, ROUTINE COVID & INFLUENZA A/B & RSV PCR, ROUTINE Microbiology Routine Bronchitis Ordered: 07/03/2024 [facility] Work Phone: Comment on above: Ordered: 07/03/2024 Creatinine [Moles/vo lume] in Serum or Plasma [facility] Work Phone: CT Abdomen and Pelvi s W contrast IV [facility] Work Phone: ECG COMPLETE ECG COMPLETE ECG Routine Tachycardia Ordered: 02/05/2024 [facility] Work Phone: Comment on above: Ordered: 02/05/2024 End: 02-04-2025 Echocardiography ECHO Cardiology Routine Tachycardia Shortness of breath 1 Occurrences starting 02/05/2024 until 02/04/2025 [facility] Comment on above: 1 Occurrences starting 02/05/2024 until 02/04/2025 Glucose [Mass/volume ] in Serum or Plasma [facility] Work Phone: Glucose [Mass/volume ] in Serum or Plasma GLUCOSE, BLOOD (POC) Lab Routine Type 2 diabetes mellitus without complication, with long-term current use of insulin (HCC) Ordered: 02/06/2023 [facility] Work Phone: Comment on above: Ordered: 02/06/2023 Hematocrit [Volume F raction] of Blood [facility] Work Phone: Hemoglobin [Mass/vol ume] in Blood [facility] Work Phone: Leukocytes [#/volume ] in Blood [facility] Work Phone: Mean corpuscular hem oglobin concentration determination [facility] Work Phone: Mean corpuscular hem oglobin determination [facility] Work Phone: Measurement of renal function [facility] Work Phone: Measurement of substance [facility] Neutrophil count [facility] Work Phone: Neutrophil percent differential count [facility] Work Phone: Patient Education [facility] Work Phone: Patient referral [facility] Work Phone: Platelets [#/volume] in Blood [facility] Work Phone: Potassium [Moles/vol ume] in Serum or Plasma [facility] Work Phone: End: 05-19-2024 PVR ANK [facility]ESS [facility] Vascular Lab Routine Type 2 diabetes mellitus without complication, with long-term current use of insulin (HCC) Diminished pulses in lower extremity 1 Occurrences starting 05/19/2023 until 05/19/2024 [facility] Work Phone: Comment on above: 1 Occurrences starting 05/19/2023 until 05/19/2024 Red blood cell count [facility] Work Phone: Red cell distributio n width determination [facility] Work Phone: SARS-CoV-2 (COVID-19 ) RNA [Presence] in Respiratory specimen by JOSE with probe detection 2019 CORONAVIRUS Microbiology Routine Sore throat URI, acute Ordered: 12/15/2022 [facility] Work Phone: Comment on above: Ordered: 12/15/2022 Sodium [Moles/volume ] in Serum or Plasma [facility] Work Phone: Ultrasound elastography [facility] Work Phone: Urea nitrogen [Mass/ volume] in Serum or Plasma [facility] Work Phone: US Abdomen limited [facility] Work Phone: End: 03-06-2025 XR Chest PA and Lateral XR CHEST 2V FRONTAL/LAT Radiology Routine Shortness of breath 1 Occurrences starting 02/05/2024 until 03/06/2025 [facility] Comment on above: 1 Occurrences starting 02/05/2024 until 03/06/2025 XR Chest PA and Lateral XR CHEST 2V FRONTAL/LAT Radiology Routine Shortness of breath 02/05/2024 2:56 PM EDT [facility] End: 08-02-2025 XR Chest PA and Lateral XR CHEST 2V FRONTAL/LAT Radiology Routine Bronchitis 1 Occurrences starting 07/03/2024 until 08/02/2025 [facility] Comment on above: 1 Occurrences starting 07/03/2024 until 08/02/2025 XR Chest PA and Lateral XR CHEST 2V FRONTAL/LAT Radiology Routine Bronchitis 07/22/2024 9:48 AM EDT [facility] Work Phone: [facility] Immunizations Immunization Date Immunization Notes Care Provider [facility] 10-03-2024 COVID-19 original vaccine, booster dose, monovalent (MODERNA) Lobito Maldonado MD Work Phone: [facility] 10-03-2024 influenza, seasonal, injectable Lobito Maldonado MD Work Phone: [facility] 04-29-2024 hepatitis B vaccine, adult dosage Mi Nurse Work Phone: [facility] 11-27-2023 hepatitis B vaccine, adult dosage Mi Nurse Work Phone: [facility] 10-24-2023 COVID-19 vaccine, ag e 12+ yr, season (iSECUREtrac) Lobito Maldonado MD Work Phone: [facility] 10-24-2023 hepatitis B vaccine, adult dosage Lobito Maldonado MD Work Phone: [facility] 06-09-2023 influenza, injectabl e, quadrivalent, contains preservative Alis Older COMPRESSOR OPERATOR ADJUSTER.TRAFFIC OFFICER Work Phone: [facility] 06-09-2023 influenza virus vaccine, unspecified formulation Lobito Maldonado MD Work Phone: [facility] 08-19-2022 pneumococcal Conjugate, unspecified formulation Lobito Maldonado MD Work Phone: [facility] Work Phone: 08-19-2022 pneumococcal (PCV20) vaccine, 20 valent (PREVNAR 20) Lobito Maldonado MD Work Phone: [facility] 07-13-2022 influenza, injectabl e, quadrivalent, preservative free Dr. Lobito Maldonado Work Phone: [facility] 07-13-2022 influenza, seasonal, injectable Dr. Lobito Maldonado Work Phone: [facility] 03-18-2022 Covid (Moderna) Dr. Lobito Maldonado Work Phone: [facility] 10-27-2021 Covid (Moderna) Dr. Lobito Maldonado Work Phone: [facility] 07-15-2021 influenza, injectabl e, quadrivalent, preservative free Dr. Lobito Maldonado Work Phone: [facility] 07-15-2021 influenza, seasonal, injectable Dr. Lobito Maldonado Work Phone: [facility] 05-06-2021 Covid (Moderna) Dr. Lobito Maldonado Work Phone: [facility] 05-03-2021 Covid (Moderna) WALL WORKER-C Souleymane Elliott WALL WORKER Work Phone: [facility] Work Phone: 04-12-2021 Covid (Moderna) WALL WORKERJocelynn Elliott WALL WORKER Work Phone: [facility] Work Phone: 04-07-2021 Covid (Moderna) Dr. Lobito Maldonado Work Phone: [facility] 03-26-2021 tetanus toxoid, reduced diphtheria toxoid, and acellular pertussis vaccine, adsorbed WALL WORKER-C Souleymane Elliott WALL WORKER Work Phone: [facility] Work Phone: 06-25-2020 Influenza virus vaccine WALL WORKER-C Souleymane Elliott WALL WORKER Work Phone: [facility] 06-25-2020 influenza, injectabl e, quadrivalent, preservative free Dr. Lobito Maldonado Work Phone: [facility] 06-25-2020 influenza, seasonal, injectable Souleymane Elliott COMPRESSOR OPERATOR ADJUSTER.ANMOL VELASQUEZ Work Phone: [facility] 06-25-2020 influenza, seasonal, injectable, preservative free Lobito Maldonado MD Work Phone: [facility] Work Phone: 07-25-2018 influenza, injectabl e, quadrivalent, preservative free Souleymane Elliott COMPRESSOR OPERATOR ADJUSTER.TRAFFIC OFFICER [facility] Work Phone: [facility] Work Phone: 06-24-2018 Influenza virus vaccine WALL WORKER-Velma Elliott WALL WORKER Work Phone: [facility] 06-24-2018 influenza, seasonal, injectable Lobito Maldonado MD Work Phone: [facility] Work Phone: 06-24-2018 influenza, seasonal, injectable, preservative free Souleymane Elliott COMPRESSOR OPERATOR ADJUSTER.TRAFFIC OFFICER [facility] Work Phone: [facility] Work Phone: 07-18-2016 Influenza virus vaccine WALL WORKER-C Souleymane Elliott WALL WORKER Work Phone: [facility] 07-18-2016 influenza, seasonal, injectable Lobito Maldonado MD Work Phone: [facility] Work Phone: 07-18-2016 influenza, seasonal, injectable, preservative free Souleymane Elliott COMPRESSOR OPERATOR ADJUSTER.EVA DNP Work Phone: [facility] Work Phone: 04-29-2015 influenza, injectabl e, quadrivalent, preservative free Dr. Lobito Maldonado Work Phone: [facility] 04-29-2015 influenza, seasonal, injectable Dr. Lobito Maldonado Work Phone: [facility] 04-29-2015 influenza, seasonal, injectable, preservative free Souleymane Elliott APRN.[facility] Work Phone: [facility] Work Phone: Payers Date Payer Category Payer Unknown [id number] 2024 Self-pay [id number] 2018 Medicare [id number] 2017 Medicaid [id number] 2017 Medicare [id number] 2017 Medicare (Managed Care) [facility] MEDIC[facility] [id number] 2017 Medicare [id number] 1965 Unknown [id number] Unknown [id number] Unknown Unknown [id number] Unknown [id number] Unknown [id number] Unknown [id number] Unknown [id number] Unknown [id number] Unknown [id number] Unknown [id number] Unknown [id number] Unknown [id number] Social History Date Type Detail Facility Start: 10-21-2014 End: 03-16-2025 Tobacco smoking status NHIS Ex-smoker [facility] Start: 10-21-2014 End: 02-06-2023 Cigarettes smoked current (pack per day) - Reported 0.5 [facility] Work Phone: Start: 10-21-2014 End: 07-03-2024 Tobacco use and exposure Smokeless tobacco non-user [facility] Start: 12-06-2021 Alcohol intake Current drinker of alcohol (finding) [facility] Start: 03-26-2013 End: 05-16-2022 Tobacco Comment Quit age 33 [facility] Start: 1965 Sex Assigned At Male [facility] Work Phone: Start: 11-26-2021 End: 05-16-2022 Exposure to SARS-CoV-2 (event) Not sure [facility] Start: 02-27-2022 End: 01-07-2024 Tobacco smoking status INIS Unknown if ever smoked [facility] Start: 02-17-2021 Occasional [facility] Start: 02-17-2021 None [facility] Start: 02-17-2021 Alone [facility] Start: 02-17-2021 Cigarettes [facility] Start: 09-25-1991 End: 09-25-2011 History of tobacco use Current smoker [facility] Start: 03-10-2022 End: 03-24-2025 Alcohol intake Ex-drinker (finding) [facility] Start: 03-10-2022 History SDOH Alcohol Frequency 1 [facility] Start: 03-10-2022 History SDOH Alcohol Comment quit 03/04/2022 [facility] Start: 09-25-1991 End: 09-25-2011 History of tobacco use Cigarette Smoker [facility] Work Phone: Start: 03-10-2022 End: 02-06-2023 Alcohol Use Disorder Identification Test - Consumption [AUDIT-C] [facility] Work Phone: How often to you hav e a drink containing alcohol? Never [facility] Work Phone: Average Number of Drinks Not on file [facility] Work Phone: Start: 12-01-2020 Gender identity Identifies as male gender (finding) [facility] Work Phone: Start: 12-01-2020 Sexual orientation Heterosexual (finding) [facility] Work Phone: Tobacco smoking status No Smokin g Status Entered [facility] Sex Assigned At Female [facility] Goals Date Patient Goal Desired Activity /State Functional Status Date Assessment Result Facility 01-08-2024 Functional status Ambulates [facility] Work Phone: 12-02-2022 Functional status Ambulates [facility] Work Phone: 10-27-2022 Functional status Ambulates [facility] Work Phone: 09-08-2022 Functional status Ambulates;Bath room Privilege [facility] Work Phone: 09-08-2022 Functional status Ambulates;Bath room Privilege [facility] Work Phone: 07-18-2022 Functional status Ambulates [facility] Work Phone: 03-04-2022 Functional status Ambulates [facility] Work Phone: 12-09-2021 Functional status Bathroom Privilege [facility] Work Phone: 04-20-2015 Are you deaf, or do you have serious difficulty hearing No 04/20/2015 10:02 AM Pascale Amos Ma No [facility] 04-20-2015 Are you blind, or do you have serious difficulty seeing, even when wearing glasses No 04/20/2015 10:02 AM Pascale Amos Ma No [facility] 04-20-2015 Do you have serious difficulty walking or climbing stairs No 04/20/2015 10:02 AM Pascale Amos Ma No [facility] 04-20-2015 Do you have difficul ty dressing or bathing No 04/20/2015 10:02 AM Pascale Amos Ma No [facility] 04-20-2015 Because of a physica l, mental, or emotional condition, do you have difficulty doing errands alone such as visiting a physician's office or shopping No 04/20/2015 10:02 AM Pascale Amos Ma No [facility] Mental Status Date Assessment Result Facility 01-08-2024 Cognitive function Voice/Name [facility] Work Phone: 12-13-2022 Cognitive function Awake;Alert;A ppropriate; Follows Commands [facility] Work Phone: 12-01-2022 Cognitive function Voice/Name [facility] Work Phone: 10-27-2022 Cognitive function Voice/Name [facility] Work Phone: 09-08-2022 Cognitive function Voice/Name [facility] Work Phone: 07-18-2022 Cognitive function Voice/Name [facility] Work Phone: 03-04-2022 Cognitive function Voice/Name [facility] Work Phone: 12-09-2021 Cognitive function Voice/Name [facility] Work Phone: 04-20-2015 Because of a physica l, mental, or emotional condition, do you have serious difficulty concentrating, remembering, or making decisions No 04/20/2015 10:02 AM EDT Pascale Reid Ma [facility] Clinical Notes 06-05-2015 to 07-18-2025 Alis Chua, COMPRESSOR OPERATOR ADJUSTER.[facility] - 03/24/2025 11:21 AM EDTTelephone Encounter - Dee Tran MA - 03/21/2025 10:23 AM EDTTelephone Encounter - Dee Tran MA - 03/21/2025 10:23 AM EDT Note Date & Type Note Facility 07-18-2025 Note HNO ID: [id number] Author: KAT GALINDO OD Service: ? Author Type: Packaging Materials Inspector Type: Progress Notes Filed: 07/18/2025 16:03 Note Text: 1. Primary open angle glaucoma (POAG) of both eyes, mild stage 2. 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 Type 2 diabetes mellitus without retinopathy A1c reviewed: 7.2 Advised to continue current therapy 4. Combined form of age-related cataract, both eyes Mild- monitor 5. Myopia, bilateral 6. Regular astigmatism, bilateral 7. Presbyopia Continue with current glasses IOP right eye elevated today, recommended starting Timolol 0.5% twice daily in both eyes consider left eye only depending on IOP at follow-up Follow-up in 6 weeks for IOP and 24-2 I have confirmed and edited as necessary the relevant HPI, ophthalmic history, ROS, and the neuro exam findings as obtained by others. I have seen and examined Bronson Weller. I have discussed the case and the management of this patient's care with the Resident/Fellow, if applicable. I also have reviewed and agree with the assessment and plan as stated above and agree with all of its relevant components. Kat Galindo, OD July 18, 2025 3:21 PM [facility] 03-24-2025 Note HNO ID: [id number] Author: ALIS CHUA APRN.TRAFFIC OFFICER Service: ? Author Type: Nurse Practitioner Type: Progress Notes Filed: 03/24/2025 11:24 Note Text: CC: Patient presents with: Recurrent Erosion Follow Up: [facility] ER Pancreatitis HPI Recording using [employer] software for draft documentation of the visit was discussed with the patient/authorized underwriting sales representative; all questions welcomed and answered. Patient/authorized underwriting sales representative agreed to proceed Bronson Weller is a 59-year-old male with a history of pancreatitis secondary to alcohol abuse, presenting for follow-up after an ED visit for abdominal pain. Bronson was seen in the ED on 03/16 for persistent epigastric and RUQ pain, accompanied by nausea, emesis, and constipation. He also reported hematochezia, noting bright red blood on the toilet paper after a bowel movement. He was diagnosed with mild acute pancreatitis and hemorrhoids. He was discharged with Percocet for pain management and Zofran for nausea, with no other medication changes or imaging studies performed. Since discharge, Bronson reports complete resolution of abdominal pain, nausea, and emesis. He has not required frequent use of Percocet, noting he has approximately 7 tablets remaining. He denies any further episodes of hematochezia and reports normal bowel movements after using Clearlax. He denies fever, chills, diarrhea, melena, or heartburn, but does report mild flatulence, which was relieved with Gas-X. He notes a good appetite and improving energy levels. Bronson has a history of pancreatitis, with the last episode occurring in July 2024, during which his lipase level was greater than 400. He has a history of alcohol abuse but reports abstinence from alcohol for some time. He also mentions a recent dietary indulgence in greasy cheeseburgers, which he believes may have triggered his symptoms. He requests a refill of his nitroglycerin medication. 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/13/2022 Cervical radiculopathy 10/21/2014 Cervical spondylosis 10/21/2014 Chronic cholecystitis 01/07/2019 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 09/25/2011 DDD (degenerative disc disease), cervical 10/21/2014 DDD (degenerative disc disease), thoracic 10/21/2014 Elevated PSA 12/01/2020 Esophageal reflux Gastroesophageal reflux Fatty liver due to alcoholism 03/01/2022 GERD without esophagitis 12/01/2020 Glaucoma Hypertension, essential 11/17/2020 Hypertriglyceridemia 12/01/2020 Idiopathic acute pancreatitis without infection or necrosis (HCC) 02/27/2022 Lumbago 01/19/2015 Mental disorder Mixed hyperlipidemia Hyperlipidemia Nonintractable epilepsy [...] CHOLECYSTECTOMY W/CHOLANGIOGRAPHY 01/07/2019 LEFT HEART CATH,PERCUTANEOUS 10/31/2011 PROSTATE BIOPSY W/TRANSRECTAL US 01/19/2021 ALLERGIES Cyclobenzaprine, Iodinated Contrast Media, Iodine, Lisinopril, Narcotics [Opioids - Morphine Analogues], Tramadol, and Vicodin [Hydrocodone-Acetaminophen] MEDICATIONS flash glucose sensor (FREESTYLE AGUSTIN 14 DAY SENSOR) kit 1 each every 2 weeks. gabapentin (NEURONTIN) 300 mg capsule Take 1 capsule by mouth two times a day for 180 days. escitalopram oxalate (LEXAPRO) 10 mg tablet Take 1 tablet by mouth once daily. Cholecalciferol, Vitamin D3, 125 mcg (5,000 unit) cap Take 1 capsule by mouth once daily. hydroCHLOROthiazide 25 mg tablet Take 1 tablet by mouth once daily. loratadine (CLARITIN) 10 mg tablet Take 1 tablet by mouth once daily. losartan (COZAAR) 25 mg tablet Take 1 tablet by mouth once daily. magnesium oxide (MAG-OX) 400 mg (241.3 mg magnesium) tablet Take 1 tablet by mouth two times a day. metFORMIN (GLUCOPHAGE) 500 mg tablet Take 1 tablet by mouth two times a day with meals. pantoprazole DR (PROTONIX) 40 mg tablet Take 1 tablet by mouth once daily. pravastatin (PRAVACHOL) 20 mg tablet Take 1 tablet by mouth once daily. tamsulosin (FLOMAX) 0.4 mg Take 1 capsule by mouth once daily. 30 minutes after the same meal each day. amitriptyline (ELAVIL) 25 mg tablet T (more content not included)... [facility] 03-24-2025 History of Presen t illness Narrative CC: Patient presents with: Recurrent Erosion Follow Up: [facility] ER Pancreatitis HPI Recording using [employer] software for draft documentation of the visit was discussed with the patient/authorized underwriting sales representative; all questions welcomed and answered. Patient/authorized underwriting sales representative agreed to proceed Bronson Weller is a 59-year-old male with a history of pancreatitis secondary to alcohol abuse, presenting for follow-up after an ED visit for abdominal pain. Bronson was seen in the ED on 03/16 for persistent epigastric and RUQ pain, accompanied by nausea, emesis, and constipation. He also reported hematochezia, noting bright red blood on the toilet paper after a bowel movement. He was diagnosed with mild acute pancreatitis and hemorrhoids. He was discharged with Percocet for pain management and Zofran for nausea, with no other medication changes or imaging studies performed. Since discharge, Bronson reports complete resolution of abdominal pain, nausea, and emesis. He has not required frequent use of Percocet, noting he has approximately 7 tablets remaining. He denies any further episodes of hematochezia and reports normal bowel movements after using Clearlax. He denies fever, chills, diarrhea, melena, or heartburn, but does report mild flatulence, which was relieved with Gas-X. He notes a good appetite and improving energy levels. Bronson has a history of pancreatitis, with the last episode occurring in July 2024, during which his lipase level was greater than 400. He has a history of alcohol abuse but reports abstinence from alcohol for some time. He also mentions a recent dietary indulgence in greasy cheeseburgers, which he believes may have triggered his symptoms. He requests a refill of his nitroglycerin medication. 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/13/2022 Cervical radiculopathy 10/21/2014 Cervical spondylosis 10/21/2014 Chronic cholecystitis 01/07/2019 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 09/25/2011 DDD (degenerative disc disease), cervical 10/21/2014 DDD (degenerative disc disease), thoracic 10/21/2014 Elevated PSA 12/01/2020 Esophageal reflux Gastroesophageal reflux Fatty liver due to alcoholism 03/01/2022 GERD without esophagitis 12/01/2020 Glaucoma Hypertension, essential 11/17/2020 Hypertriglyceridemia 12/01/2020 Idiopathic acute pancreatitis without infection or necrosis (HCC) 02/27/2022 Lumbago 01/19/2015 Mental disorder Mixed hyperlipidemia Hyperlipidemia Nonintractable epilepsy [...] CHOLECYSTECTOMY W/CHOLANGIOGRAPHY 01/07/2019 LEFT HEART CATH,PERCUTANEOUS 10/31/2011 PROSTATE BIOPSY W/TRANSRECTAL US 01/19/2021 ALLERGIES Cyclobenzaprine, Iodinated Contrast Media, Iodine, Lisinopril, Narcotics [Opioids - Morphine Analogues], Tramadol, and Vicodin [Hydrocodone-Acetaminophen] MEDICATIONS flash glucose sensor (FREESTYLE AGUSTIN 14 DAY SENSOR) kit 1 each every 2 weeks. gabapentin (NEURONTIN) 300 mg capsule Take 1 capsule by mouth two times a day for 180 days. escitalopram oxalate (LEXAPRO) 10 mg tablet Take 1 tablet by mouth once daily. Cholecalciferol, Vitamin D3, 125 mcg (5,000 unit) cap Take 1 capsule by mouth once daily. hydroCHLOROthiazide 25 mg tablet Take 1 tablet by mouth once daily. loratadine (CLARITIN) 10 mg tablet Take 1 tablet by mouth once daily. losartan (COZAAR) 25 mg tablet Take 1 tablet by mouth once daily. magnesium oxide (MAG-OX) 400 mg (241.3 mg magnesium) tablet Take 1 tablet by mouth two times a day. metFORMIN (GLUCOPHAGE) 500 mg tablet Take 1 tablet by mouth two times a day with meals. pantoprazole DR (PROTONIX) 40 mg tablet Take 1 tablet by mouth once daily. pravastatin (PRAVACHOL) 20 mg tablet Take 1 tablet by mouth once daily. tamsulosin (FLOMAX) 0.4 mg Take 1 capsule by mouth once daily. 30 minutes after the same meal each day. amitriptyline (ELAVIL) 25 mg tablet Take 1 tablet by mouth daily at bedtime. aspirin, enteric coated (ASPIRIN, ENTERIC COATED) 81 mg EC tablet Take 1 tablet by mouth once daily. amLODIPine (NORVASC) 10 mg tablet Take 1 tablet by mouth once daily. latanoprost (XALATAN) 0.005 % ophthalmic solution Use 1 drop in both eyes daily at bedtime. insulin glargine (LANTUS SOLOSTAR U-100 INSULIN) 100 unit/mL (3 mL) Inject 16 Units subcutaneously daily at bedtime. FREESTYLE AGUSTIN 3 SENSOR josse Apply 1 Kit to affected area as directed. Change twice monthly. Check blood glucose four or more times daily. ondansetron orally disintegrating (ZOFRAN ODT) 4 mg disintegrating tablet Take by mouth. Blood-Glucose Meter,Continuous (FREESTYLE AGUSTIN 3 READER) [facility] [place] Check glucose 4 or more times daily. ursodiol (AILYN) 250 mg tablet Take 1 tablet by mouth twice daily. Per [facility]. yfdvep-voyhdsbi-ieplvym (CREON) 12,000-38,000 -60,000 unit delayed release capsule [...] by mouth twice daily. Per Dr. Burnett GAS RELIEF 80, SIMETHICONE, ORAL Take 1 tablet by mouth three times daily. docosahexaenoic acid/epa (FISH OIL ORAL) Take by mouth once daily. fluticasone propionate (FLONASE NASAL) Use in the nose once daily. Multivitamin capsule Take 1 capsule by mouth once daily. nitroglycerin sublingual (NITROQUICK) 0.4 mg SL tablet Dissolve 1 tablet under the tongue every 5 minutes as needed. FAMILY HISTORY Problem Relation Age of Onset Glaucoma Father Diabetes Father Kidney Disease Father other (DDD lumbar) Father Glaucoma Mother Diabetes Mother Ischemic Heart Disease Mother COPD [...] date: 09/25/1991 Quit date: 09/25/2011 Years since quittin.5 Smokeless tobacco: Never Tobacco comments: Quit age 33 Vaping Use Vaping status: Never Used Substance Use Topics Alcohol use: Not Currently Alcohol/week: 3.0 standard drinks of alcohol Types: 3 Cans of Beer (12oz) per week Comment: quit 03/04/2022 Drug use: Never BP 118/74 Pulse 101 Resp 14 Wt 80.5 kg (177 lb 7.5 oz) SpO2 98% BMI 24.98 kg/m Physical Exam Vitals reviewed. Constitutional: Appearance: Normal appearance. Eyes: Conjunctiva/sclera: Conjunctivae normal. Cardiovascular: Rate and Rhythm: Normal rate and regular rhythm. Heart sounds: Normal heart sounds. No murmur heard. Pulmonary: Effort: Pulmonary effort is normal. Breath sounds: Normal breath sounds. No wheezing, rhonchi or rales. Abdominal: General: Bowel sounds are normal. There is no distension. Palpations: Abdomen is soft. There is no hepatomegaly, splenomegaly or mass. Tenderness: There is no abdominal tenderness. Skin: General: Skin is warm and dry. Coloration: Skin is not jaundiced. Neurological: Mental Status: He is alert. I have reviewed the patient s records from [facility] including diagnostic testing performed, their discharge medications, and my assessment and plan with the patient and any family members present at today s visit. Labs: (03/16) - WBC: 11.5 10 / L (slightly elevated) - Hemoglobin: 13.9 g/dL - Hematocrit: 38.9% - Platelets: 176 10 / L - BUN: 18 mg/dL - Creatinine: 1.04 mg/dL - Sodium: 137 mmol/L - Potassium: 3.5 mmol/L - eGFR: 83 mL/min/1.73m - Lipase: 130 U/L - Total bilirubin: 0.82 mg/dL - AST: 14 U/L - ALT: 12 U/L - Alkaline phosphatase: 77 U/L (07/2024) - Lipase: >400 U/L Tests: (03/16) Anoscopy: No evidence of gastrointestinal or rectal bleeding; consistent with hemorrhoids. Assessment/Plan 1. Acute pancreatitis without infection or necrosis, unspecified pancreatitis type (HCC) (K85.90) Recent ER visit on 03/16 for persistent epigastric and right upper quadrant pain, nausea, and vomiting. History of pancreatitis secondary to alcohol abuse, though abstinent from alcohol for some time. Currently, pain, nausea, and vomiting have resolved. - Continue Zofran as needed for nausea. - Avoid fatty foods to prevent exacerbation. - Monitor for any recurrence of symptoms. 2. Constipation, unspecified constipation type (K59.00) Recent episodes of constipation with straining. Bowel movements are now normal after using ClearLax. - Continue ClearLax as needed. - Increase dietary fiber and fluid intake. 3. Hemorrhoids, unspecified hemorrhoid type (K64.9) Bright red blood on toilet paper attributed to hemorrhoids confirmed by anoscopy. - Monitor for any changes or worsening symptoms. Prescription instructions reviewed with patient as applicable. Potential red flag symptoms discussed with the patient. Reviewed appropriate action plan to take if red flag symptoms occur. Patient agreeable to treatment plan. Alis Chua APRN.TRAFFIC OFFICER documented in this encounter [facility] 03-21-2025 Telephone encounter Note Patient has been identified by name and date of : yes Patient phones for refill(s): Requested Prescriptions Pending Prescriptions Disp Refills flash glucose sensor (FREESTYLE AGUSTIN 14 DAY SENSOR) kit 1 kit 5 Si each every 2 weeks. Date of last office visit in primary care: 02/12/2025 Date of next office visit in primary care: 03/24/2025 Please advise. Thank you. Dee Tran MA. [facility] 03-21-2025 Miscellaneous Notes Patient has been identified by name and date of : yes Patient phones for refill(s): Requested Prescriptions Pending Prescriptions Disp Refills flash glucose sensor (FREESTYLE AGUSTIN 14 DAY SENSOR) kit 1 kit 5 Si each every 2 weeks. Date of last office visit in primary care: 02/12/2025 Date of next office visit in primary care: 03/24/2025 Please advise. Thank you. Dee Tran MA. Prescription Refill Information The patient has been [...] Yes Requested Prescriptions Pending Prescriptions Disp Refills flash glucose sensor (FREESTYLE AGUSTIN 14 DAY SENSOR) kit 1 kit 5 Si each every 2 weeks. Sarah Beth Jarrett March 21, 2025 8:50 AM documented in this encounter [facility] 03-21-2025 Telephone encounter Note Prescription Refill Information The patient has [...] Yes Requested Prescriptions Pending Prescriptions Disp Refills flash glucose sensor (FREESTYLE AGUSTIN 14 DAY SENSOR) kit 1 kit 5 Si each every 2 weeks. Sarah Beth Jarrett March 21, 2025 8:50 AM [facility] 03-16-2025 Discharge summary [facility] 03-16-2025 Discharge summary Note Date/Time March 16, 2025 9:11pm [facility] Medical Records Department [address] [place] [address] Emergency Department Summary 03/16/25 MR#: [id number] Acct: [id number] Name: BRONSON WELLER Rep #:[id number] : 1965 59 From: Genaro Trammell MD PCP: Dr. Lobito Maldonado MD Status:R EG ER Location: ED HPI HPI - GI History of Present Illness Chief Complaint: Abd Pain Detail of Chief Complaint: Upper abdominal pain with nausea vomiting Abdominal Pain/Flank Pain Onset: Days (3 days ago March 13) Context: Sudden Onset Timing: Continuous Quality: Aching and Cramping Location: Epigastric and LUQ Current Severity: Mild Maximum Severity: Severe Worsened by: Food Relieved by: Nothing Nausea/Vomiting/Emesis GI Symptom: Positive for Nausea and Vomiting (X 2 since onset of pain) Quality: Negative for Nonbilious, Blood streaks, Coffee ground or Hematemesis Severity: Mild Episodes: 2 Diarrhea/Melena/Hematochezia GI Symptom: Positive for Hematochezia; Negative for Diarrhea or Melena Onset: Today and Yesterday Severity: Mild Associated Symptoms Associated Symptoms: Negative for Dysuria, Frequency, Hematuria or Urgency Narrative Narrative: Patient is a 59-year-old male. He has a history of due to alcohol use. He has not used alcohol in some time. His last ER visit for pancreatitis was July 2024. His lipase at that time was greater than 400. He presents because of persistent pain located epigastric right upper quadrant. Had 2 episodes of nausea vomiting. He was initially constipated took medicine and had bowel movement had a bowel movement today. He denied black or maroon stool. Per triage note he had bright red blood. He endorses bright red blood on tissue andin the commode. He states he does not have any hemorrhoids at this time that heis aware of. He is on no antithrombotic or anticoagulant. He does have a history of GERD. He denies bruising easily. No hematuria. Nu[place] bleeding of his gums. Prior similar symptoms: Yes Recent Illness/Hospitalization: No PFSH PFSH Medical History Bulging disc Liver fibrosis Myocardial infarct Stroke/cerebrovascular accident Alcohol abuse Vision loss of right eye Vision loss of left eye Cancer Neck pain PSA elevation GI bleed TIA (transient ischemic attack) Diabetes Family history of cerebral aneurysm Polyneuropathy Gastric ulcer GERD (gastroesophageal reflux disease) Former tobacco use Constipation Glaucoma Seizure disorder Hyperlipidemia PTSD (post-traumatic stress disorder) Anxiety and depression Essential (primary) hypertension Home Medications ?Medication ?Instructions ?Recorded ?Last Taken ?Type amitriptyline 25 mg tablet 25 mg PO QHS depression 06/1201/06/24 History cholecalciferol (vitamin D3) 125 1 cap PO DAILY supple ment 11/09/18 01/06/24 History mcg (5,000 unit) capsule hydrochlorothiazide 25 mg tablet 25 mg PO DAILY blood 06/05/20 01/06/24 Rx pressure/heart #30 tabs gabapentin 300 mg capsule 300 mg PO BID nerve pain 09/1401/06/24 History metformin 500 mg tablet 500 mg PO BID diabetes #0 ta bs 03/04/22 01/06/24 Rx aspirin 81 mg tablet,delayed 81 mg PO DAILY heart heal th 07/04/22 01/06/24 History release escitalopram oxalate 10 mg tablet 10 mg PO DAILY depre ssion 07/04/22 01/06/24 History losartan 25 mg tablet 25 mg PO DAILY blood pressur e 07/04/22 01/06/24 History pantoprazole 40 mg tablet,delayed 40 mg PO DAILY reflu x #30 tabs 01/08/24 Unknown Rx release (Protonix) tamsulosin 0.4 mg capsule 0.4 mg PO DAILY@1730 prostat e 30 01/08/24 Unknown Rx days #30 caps insulin glargine 100 unit/mL (3 10 unit subcut QHS gisella betes 02/25/24 Unknown History mL) subcutaneous pen (Lantus Solostar U-100 Insulin) latanoprost 0.005 % eye drops 1 drp ophthalmic (eye) Q HS eye 02/25/24 Unknown History health loratadine 10 mg tablet 10 mg PO DAILY allergies 11/18 Unknown History magnesium oxide 400 mg (241.3 mg 400 mg PO BID 4 Unknown History magnesium) tablet pravastatin 20 mg tablet 20 mg PO DAILY cholesterol 0 02/25/24 Unknown History levocarnitine 330 mg tablet 660 mg (2 x 330 mg) PO BID #120 04/18/24 Unknown Rx tabs amlodipine 10 mg tablet 10 mg PO DAILY blood pressur e #90 05/24/24 Unknown Rx tabs hydromorphone 2 mg tablet 2 mg PO Q6H PRN pain 3 days #12 08/13/24 Unknown Rx (Dilaudid) tabs metoclopramide HCl 5 mg tablet 5 mg PO Q8H PRN PRN maged sea and 08/13/24 Unknown Rx (Reglan) vomiting #10 tabs ondansetron 4 mg disintegrating 4 mg PO Q8H PRN nausea and vomiting 08/13/24 Unknown History tablet oxycodone-acetaminophen 5 mg-325 1 tab PO Q6H PRN pain 08/13/24 Unknown History mg tablet (Percocet) ursodiol 250 mg tablet 250 mg PO BID #180 TABLETS 0 10/10/24 Unknown Rx pxcixv-wzmfdguf-rnkanbm 2 cap PO .COMPLEX #300 caps 01/06/25 Unknown Rx 12,000-38,000-60,000 unit capsule,delayed rel (Creon) levetiracetam 500 mg tablet 500 mg PO BID #60 tabs Unknown Rx ondansetron 4 mg disintegrating 4 mg PO Q8H PRN PRN Na usea #10 tabs 03/16/25 Unknown Rx tablet oxycodone-acetaminophen 5 mg-325 1 tab PO Q6H PRN PRN pain 5 days 03/16/25 Unknown Rx mg tablet #20 TABLETS Allergy/AdvReac Type Severity Reaction Status Date / Time Iodinated Contrast Media Allergy Mild Rash Verified 03/16/25 18:30 hydromorphone (From Dilaudid) Allergy Itching Verified 03/16/25 18:30 lisinopril Allergy Angioedema Verified 03/16/25 18:30 cyclobenzaprine AdvReac Severe Skin Verified 03/16/25 18:30 crawling hydrocodone bitartrate (From AdvReac Itching Verified 03/16/25 18:30 Vicodin) morphine AdvReac Itching Verified 03/16/25 18:30 tramadol AdvReac Itching Verified 03/16/25 18:30 Family History Mother Heart disease Sister Cerebral aneurysm Father Diabetes Kidney disease Anxiety and depression Surgical History History of cholecystectomy (12/2013) History of left heart catheterization (10/31/11) Social History household members: none housing: house Smoking Status: Former smoker Tobacco: How many years used: 7 Electronic Cigarette Use: not used alcohol intake: former details: 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 substance use type: does not use caffeine: No robbin/jew: Mosque seatbelt use: always ROS ROS ED Constitutional Constitutional ED: Denies chills, fever(s) or subjective ENT ENT ED: Denies ear pain, rhinorrhea or sore throat Cardiovascular Cardiovascular: Denies chest pain or palpitations Respiratory/Chest Respiratory/Chest: Denies cough, dyspnea or dyspnea on exertion Gastrointestinal Gastrointestinal: Reports abdominal pain, constipation, nausea and vomiting; Denies diarrhea or melena Genitourinary Genitourinary ED: Denies dysuria, hematuria or urinary frequency Musculoskeletal Musculoskeletal: Denies arthralgias or myalgias Integumentary Denies rash Neurologic Neurologic: Denies headache(s) or weakness Hematologic/Lymphatic Hematologic/Lymphatic: Denies easy bleeding or easy bruising EXAM Physical Exam Const Vital Signs: 03/16/25 18:28 Temperature 98.3 F Temperature Source Oral Pulse Rate 94 Respiratory Rate 18 Blood Pressure 156/101 H Blood Pressure Mean 119 Pulse Ox 98 Oxygen Delivery Method Room Air Positive well nourished and well developed Constitutional Narrative: Patient appears uncomfortable. He is bent over and in the room. He grimaced when he straightened up. General Appearance ED: well developed; Negative for pallor HEENT Reports TM's clear and dry mucous membranes normocephalic and atraumatic Tympanic Membrane ED: Yes TM's clear Mouth ED: Yes dry mucous membranes Mouth: dry mucous membranes Eyes PERRL and EOMs intact bilaterally General Eye ED: Negative for pale conjunctiva or scleral icterus Neck no lymphadenopathy, supple and no JVD Resp normal respiratory effort and clear to auscultation bilaterally Cardio regular rate, regular rhythm, S1 normal heart sound, S2 normal heart sound and no murmurs GI no masses; Negative for non-tender or non-distended Inspection: abdominal distention Auscultation: hypoactive bowel sounds Palpation: soft, tender epigastric and LUQ and guarding LUQ; Negative for rigid,hepatomegaly, splenomegaly, hernia, mass or pulsatile mass Back/Spine no CVA tenderness Extremity full ROM General Extremety ED: Negative for edema or tenderness General Extremity: Negative for edema Neuro CN's II-XII intact bilaterally and moves all extremities Sensorium / Orientation: alert Psych mental status grossly normal and thought process normal Skin no wounds General Skin Exam: Negative for jaundice or pallor Lesions: no lesions Rashes: no rashes MDM MDM MDM Narrative Medical decision making narrative: With bright red blood per rectum anoscope was performed. Please see procedure note. Differential diagnosis for his abdominal pain is of no pain unknown etiology, peptic ulcer disease, pancreatitis doubt biliary. May be due to fatty liver disease. Patient was treated with Zofran for his nausea and vomiting. Workup included a lipase, hepatic profile, CBC. Since his renal function is normal he was treated with ketorolac for his pain since he does not have a ride home. History & Record Review Additional record(s) reviewed:: Prior ED visit (July 2024. Reviewed Dr. Dickson' note) and Prior labs Lab Data Attestation: I reviewed the patient's lab results. Lab results narrative: White count is slightly elevated. There is no shift. H&H is unremarkable. Comprehensive metabolic panel is remarkable glucose of 230 with a CO2 of 22 and anion gap of 16. Liver enzymes normal. Lipase is 1.8 times normal. Labs: Laboratory Results - last 24 hr 03/16/25 18:40 WBC 11.5 H RBC 4.27 L Hgb 13.9 Hct 38.9 L MCV 91.1 MCH 32.6 H MCHC 35.7 RDW Std Deviation 39.5 RDW Coeff of Armin 11.9 Plt Count 176 MPV 9.9 Immature Gran % (Auto) 0.300 Neut % (Auto) 63.6 Lymph % (Auto) 28.1 [place] % (Auto) 6.6 Eos % (Auto) 1.1 Baso % (Auto) 0.3 Absolute Neuts (auto) 7.3 Absolute Lymphs (auto) 3.23 Nucleated RBC % 0 Sodium 137 Potassium 3.5 Chloride 98 Carbon Dioxide 22.3 Anion Gap 16 H BUN 18 Creatinine 1.04 Estim Creat Clear Calc 76.48 Est GFR (MDRD) Non-Af 83 BUN/Creatinine Ratio 16.9 Glucose 230 H Calcium 10.0 Total Bilirubin 0.82 AST 14 ALT 12 Alkaline Phosphatase 77 Total Protein 8.1 Albumin 4.8 Globulin 3.3 Albumin/Globulin Ratio 1.5 Lipase 130 H Treatment and Re-Evaluation :: I was informed that patient reports nausea is better pain is better however he got some pain after drinking water. He did pass p.o. challenge. Will treat with Pepcid. Suspect this is probably due to mild pancreatitis. Comments:: Patient's prescription was filled at [facility] in deliver to his bed. He was discharged to home with the medication since he doesnot have a ride home he was not given a bandages in the department Discharge Plan Triage Chief Complaint: Abd Pain ED Provider: Genaro Trammell Dx/Rx/DC Orders Clinical Impression: Acute pancreatitis, Essential (primary) hypertension, Polyneuropathy, GERD (gastroesophageal reflux disease), Nausea & vomiting, Fatty liver, Dehydration, mild, High anion gap Instructions: ED Pancreatitis Prescriptions: New oxycodone-acetaminophen 5-325 mg tablet 1 tab PO Q6H PRN PRN (Reason: pain) 5 Days Qty: 20 0RF ondansetron 4 mg tablet,disintegrating 4 mg PO Q8H PRN PRN (Reason: Nausea) Qty: 10 0RF No Action amitriptyline 25 mg tablet 25 mg PO QHS gabapentin 300 mg capsule 300 mg PO BID levocarnitine 330 mg tablet 660 mg PO BID Qty: 120 11RF Rx Instructions: must administer with a meal/food levetiracetam 500 mg tablet 500 mg PO BID Qty: 60 11RF cholecalciferol (vitamin D3) 5,000 capsule 1 cap PO DAILY metformin 500 MG tablet 500 mg PO BID Qty: 0 0RF aspirin 81 mg Tablet,Delayed Release (Dr/Ec) 81 mg PO DAILY losartan 25 mg tablet 25 mg PO DAILY escitalopram oxalate 10 mg tablet 10 mg PO DAILY tamsulosin 0.4 mg Capsule 0.4 [...] mL) insulin pen 10 unit subcut QHS oxycodone-acetaminophen [Percocet] 5-325 mg tablet 1 tab PO Q6H PRN (Reason: pain) ondansetron 4 mg tablet,disintegrating 4 mg PO Q8H PRN (Reason: nausea and vomiting) hydromorphone [Dilaudid] 2 mg tablet 2 mg PO Q6H PRN (Reason: pain) 3 Days Qty: 12 0RF metoclopramide HCl [Reglan] 5 mg tablet 5 mg PO Q8H PRN PRN (Reason: nausea and vomiting) Qty: 10 0RF hydrochlorothiazide 25 mg tablet 25 mg PO DAILY Qty: 30 11RF amlodipine 10 mg tablet 10 mg PO DAILY Qty: 90 3RF ursodiol 250 mg tablet 250 mg PO BID Qty: 180 2RF Creon 12,000-38,000 -60,000 unit capsule,delayed release(DR/EC) 2 cap PO .COMPLEX Qty: 300 11RF Rx Instructions: 2 caps orally ; take 1-2 with snacks and 2-3 with meals; Primary Care Provider: Lobito Maldonado Referrals: Lobito Maldonado MD [Primary Care Provider] - Print Language: Egyptian Disposition Disposition: Home, Self Care What to do if you have Problems For any increased pain, shortness of breath, bleeding, nausea or vomiting, chestpain, or any unexpected problems, contact your Primary Care Provider. Call [facility] ([phone]) or report to the closest Emergency Room. Call 911 if necessary. 03/16/252110 <Electronically signed by Genaro Trammell MD> Cosigner Signature (if applicable): CC: Dr. Lobito Maldonado MD ~ Signed [facility] Work Phone: [phone]) 410-326305-27-2025 Telephone encounter Note* Telephone Encounter - Rhona Samayoa LPN - 02/18/2025 10:17 AM EDT Duplicate request, refills sent to [facility] 02/12/2025. Rhona Samayoa LPN [facility]05-27-2025 Miscellaneous Notes* Telephone Encounter - Rhona Samayoa LPN - 02/18/2025 10:17 AM EDT Duplicate request, refills sent to [facility] 02/12/2025. Rhona Samayoa LPN * Telephone Encounter - Sarah Beth Gandhi - 02/14/2025 8:52 AM EDT Prescription Refill Information The patient [...] 14, 2025 8:52 AM documented in this encounterU[facility]05-[facility] Telephone encounter Note * Telephone Encounter - Sarah Beth Gandhi - 02/14/2025 8:52 AM EDT Prescription Refill Information The patient [...] Beth Jarrett February 14, 2025 8:52 AM [facility]05-22-2025 Evaluation note* Diagnosis Onset Date Resolution Status Admit Date Epilepsy chronic February 13, 2025 1:37pm Hyperammonemia resolved February 13, 2025 1:37pm [facility] Work Phone: [phone]) 474-579905-21-2025 NoteHNO ID: [id number] Author: ALIS CHUA APRN.TRAFFIC OFFICER Service: ? Author Type: Nurse Practitioner Type: [...] PCP - General (Internal Medicine) Alis Chua APRN.TRAFFIC OFFICER as Duct Layer Helper (Internal Medicine) Dr. Burnett-neurology Kat Galindo-optometry Dr. [...] 80 Resp 14 Ht 179.5 cm (5' 10.67") Wt 79.3 kg (174 lb 13.2 oz) BMI 24.61 kg/m? Vision Screening: Follows with optometry/ophthalmology Assessment/Plan Medicare annual wellness visit, subsequent (Z00.00) - Counseled on healthy diet and regular exercise - Fall avoidance information provided - Personalized prevention plan provided Additional Concerns The following concerns were also discussed with the patient: Recording using [employer] software for draft documentation of the visit was discussed with the patient/authorized underwriting sales representative; all questions welcomed and answered. Patient/authorized underwriting sales representative agreed to proceed Anxiety and Depression: - Managed with Lexapro and amitriptyline. - Amitriptyline also helps with sleep. - Recent depression score was 0. Diabetes Mellitus: - Takes metformin BID and Lantus 16 units daily. - Monitors blood glucose levels in the morning and at night; levels are generally good. - Uses FreeStyle Agustin for continuous glucose monitoring. - Last [...] 80 Resp 14 Ht 179.5 cm (5' 10.67") Wt 79.3 kg (174 lb 13.2 oz) [...] panel results. 9. 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 (I25.10) Needs new net developer software engineer c, will place referral 10. Type 2 diabetes mellitus without complication, with long-term current use of insulin (HCC) (E11.9) - Managed with metformin BID and Lantus 16 units daily. (more content not included)...[facility]05-06-2025 Telephone encounter Note* Telephone Encounter - Adore Perry LPN - 01/28/2025 11:18 AM EDT Pt has chepe adamson pcp 02/06/25. Refills can be reviewed then. [facility]05-06-2025 Miscellaneous Notes* Telephone Encounter - Adore Perry LPN - 01/28/2025 11:18 AM EDT Pt has appt [facility] 02/06/25. Refills can be reviewed then. * Telephone Encounter - SarahB eth Gandhi - 01/28/2025 9:22 AM EDT Prescription [...] 28, 2025 9:24 AM documented in this encounterUc Medical Center05-06-2025 Telephone encounter Note * Telephone Encounter - [...] Beth Jarrett January 28, 2025 9:24 AM [facility]04-24-2025 NoteHNO ID: [id number] Author: KAT GALINDO, SHIRA Service: ? Author Type: TREASURER Type: Progress Notes Filed: 01/31/2025 10:38 Note [...] continue care with primary care doctor and/or experimental machinist to maintain optimum levels as they are [...] 24-2 and IOP Kat Galindo, OD [facility] 16[facility] Tele[facility] encounter Note* Telephone Encounter - Tonio [...] Jackson RN November 07, 2024 4:26 PM [facility]02-13-2025 Miscellaneous Notes* Telephone Encounter - Tonio Jackson [...] 07, 2024 4:26 PM documented in this encounterUc Medical Center02-03-2025 Telephone encounter Note * Telephone Encounter - [...] primary care: 02/06/2025 Please advise. Thank you. Lita Cervantes. [facility]02-03-2025 Miscellaneous Notes* Telephone Encounter - Liat Cervantes [...] Thank you. Liat Cervantes. documented in this encounterUc Medical Center01-30-2025 NoteHNO ID: [id number] Author: LOBITO MALDONADO MD Service: ? Author Type: Physician Type: Progress Notes Filed: 10/24/2024 14:42 Note Text: This note was created using coRankter. Subjective Patient presents with: F/U 3 Month [...] of Both Eyes Coronary Artery Disease Involving Torres Martinez Coronary Artery of Torres Martinez Heart Without Angina Pectoris Posttraumatic Stress Disorder [...] mouth. Blood-Glucose Meter,Continuous (FREESTYLE AGUSTIN 3 READER) [facility] [place] Check glucose 4 or more times daily. insulin glargine (LANTUS SOLOSTAR U-100 INSULIN) 100 unit/mL (3 mL) Inject 16 Units subcutaneously daily at bedtime. ursodiol (AILYN) 250 mg tablet Take 1 tablet by mouth twice daily. Per [facility]. jojhjw-qxyvbehd-zzmlhxs (CREON) 12,000-38,000 -60,000 unit delayed release capsule [...] by mouth once daily. (more content not included)...[facility]01-30-2025 History of Present illness Narrative* Lobito Maldonado [...] of Both Eyes Coronary Artery Disease Involving Torres Martinez Coronary Artery of Torres Martinez Heart Without Angina Pectoris Posttraumatic Stress Disorder [...] mouth. Blood-Glucose Meter,Continuous (FREESTYLE AGUSTIN 3 READER) [facility] [place] Check glucose 4 or more times daily. insulin glargine (LANTUS SOLOSTAR U-100 INSULIN) 100 unit/mL (3 mL) Inject 16 Units subcutaneously daily at bedtime. ursodiol (AILYN) 250 mg tablet Take 1 tablet by mouth twice daily. Per [facility]. nnqxyn-amjyrwnm-etijdlw (CREON) 12,000-38,000 -60,000 unit delayed release capsule [...] PANEL BASIC 4. 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- ICD9: 414.01, ICD10: [...] - ICD9: 577.1, ICD10: K86.0 - Per Dr. Leroy Haynes. Lobito Maldonado MD documented in this encounterUc [facility] Center01-30-2025 Telephone encounter Note * Telephone Encounter - Rhona Samayoa LPN - 10/24/2024 9:01 AM EST Patient rescheduled for 10/24/2024. Rhona Samayoa LPN [facility]01-30-2025 Miscellaneous Notes* Telephone Encounter - Rhona Samayoa LPN - 10/24/2024 9:01 AM EST Patient rescheduled for 10/24/2024. Rhona Samayoa LPN * Telephone Encounter - Dee Tran MA - 10/23/2024 1:13 PM EST Left message apologizing for miscommunication/time error asked patient to call back so we can r/s. Patient in vm advised provider does not see patients from 12-1 due to emily\\ch hours. Dee Tran MA * Telephone Encounter - Davina Li RN - 10/23/2024 12:26 PM EST Patient calls and is upset about below. Please advise. Davina Li RN * Telephone Encounter - Miguel Bridges - 10/23/2024 12:21 PM EST Patient came in today and was upset, because he said he received a call from [facility] telling him to come in at 12:30 for a Maldonado appt today that was marked as no show when he did not attend it for its 10:00 time. documented in this encounterUc Medical Center01-29-2025 Telephone encounter Note * Telephone Encounter - Dee Tran MA - 10/23/2024 1:13 PM EST Left message apologizing for miscommunication/time error asked patient to call back so we can r/s. Patient in vm advised provider does not see patients from - due to emily\\ch hours. Dee Tran MA [facility]01-29-2025 Telephone encounter Note* Telephone Encounter - Davina Li RN - 10/23/2024 12:26 PM EST Patient calls and is upset about below. Please advise. Davina Li RN [facility]01-29-2025 Telephone encounter Note* Telephone Encounter - Miguel Bridges - 10/23/2024 12:21 PM EST Patient came in today and was upset, because he said he received a call from [facility] telling him to come in at 12:30 for a Maldonado appt today that was marked as no show when he did not attend it for its 10:00 time. [facility]01-16-2025 Miscellaneous Notes* Telephone Encounter - Kay Molina [...] 10, 2024 4:39 PM documented in this encounterUc Medical Center01-16-2025 Telephone encounter Note * Telephone Encounter - [...] Molina RN October 10, 2024 4:39 PM [facility]12-18-2024 Telephone encounter Note* Telephone Encounter - Davina [...] Li RN September 11, 2024 9:06 AM [facility]12-18-2024 Miscellaneous Notes* Telephone Encounter - Davina Li RN - [...] 11, 2024 9:06 AM documented in this encounterUc Medical Center11-22-2024 Telephone encounter Note * Telephone Encounter - [...] each day. Authorizing Provider: LOBITO MALDONADO MD [facility]11-22-2024 Miscellaneous Notes* Telephone Encounter - Lobito Maldonado [...] 16, 2024 9:22 AM documented in this encounterUc Medical Center11-22-2024 Telephone encounter Note * Telephone Encounter - [...] Jennings LPN August 16, 2024 9:22 AM [facility]11-06-2024 Telephone encounter Note* Telephone Encounter - Rhona Samayoa LPN - 07/31/2024 2:13 PM EST Patient notified of below results, 3 month follow-up scheduled. Rhona Samayoa LPN [facility]11-06-2024 Miscellaneous Notes* Telephone Encounter - Rhona Samayoa [...] up in 3 months. documented in this encounterUc Medical Center11-06-2024 Telephone encounter Note * Telephone Encounter - Rhona Samayoa LPN - 07/31/2024 2:11 PM EST ----- Message from Lobito Maldonado MD sent at 07/31/2024 1:39 PM EST ----- Labs are okay in general. Diabetes controlled. Schedule follow up in 3 months. [facility]10-28-[facility] History of Present illness Narrative* Felipe Rosen [...] PATIENT PRESENTS WITH AN IMPLANTABLE OR ATTACHED [place] FOOD MACHINE TENDER: No RADIOLOGY DEPARTMENT: General X-ray: Exam(s) Completed: Chest X-Ray PERIPHERAL IV DATA: Not applicable SIGNED BY: NALDO Benitez) July 22, 2024 9:36 AM documented in this encounterUc Medical Center10-28-2024 NoteHNO ID: [id number] Author: FELIPE ROSEN RT(R) Service: Radiology Author [...] PATIENT PRESENTS WITH AN IMPLANTABLE OR ATTACHED [place]ICAN FOOD MACHINE TENDER: No RADIOLOGY DEPARTMENT: General X-ray: Exam(s) Completed: Chest X-Ray PERIPHERAL IV DATA: Not applicable SIGNED BY: NALDO Benitez) July 22, 2024 9:36 [facility]10-24-2024 History of Present illness Narrative* Kat [...] nerve and 24-2 OS only Kat Galindo, SHIRA July 18, 2024 2:04 PM documented in this encounterUc Medical Center10-24-2024 NoteDate of Procedure 07/18/2024. Interpretation Right Eye Non-specific defect. Left Eye Arcuate defect. Interval Change Right Eye Stable. Left Eye Stable. Notes OD: stable OS: sup/temporal arcuate changes- slightly worse than previous but high FP and low reliability- plan to repeat left eye only in 6 [id number] Telephone encounter Note* Telephone Encounter - Roxie [...] have any questions, you can call Nurse malt specifications control assistant back. [facility]-13[facility]24 Miscellaneous Notes* Telephone Encounter - Roxie Zuñiga [...] have any questions, you can call Nurse malt specifications control assistant back. documented in this encounterUc Medical Center10-11-2024 Telephone encounter Note * Telephone Encounter - [...] Jackson RN July 05, 2024 2:08 PM [facility]10-11-2024 Miscellaneous Notes* Telephone Encounter - Tonio Jackson [...] 05, 2024 2:08 PM documented in this encounterUc Medical Center10-10-2024 Telephone encounter Note * Telephone Encounter - Rhona Samayoa LPN - 07/04/2024 1:24 PM EDT Patient notified, verbalized understanding. Rhona Samayoa LPN [facility]10-10-2024 Miscellaneous Notes* Telephone Encounter - Rhona Samayoa LPN - 07/04/2024 1:24 PM EDT Patient notified, verbalized understanding. Rhona Samayoa LPN * Telephone Encounter - Rhona Samayoa LPN - 07/04/2024 1:23 PM EDT ----- Message from Lobito Maldonado MD sent at 07/04/2024 12:47 PM EDT ----- Viral panel negative. Please encourage him to do CXR and labs ordered. documented in this encounterUc Medical Center10-10-2024 Telephone encounter Note * Telephone Encounter - Rhona Samayoa LPN - 07/04/2024 1:23 PM EDT ----- Message from Lobito Maldonado MD sent at 07/04/2024 12:47 PM EDT ----- Viral panel negative. Please encourage him to do CXR and labs ordered. [facility] History of Present illness Narrative* Lobito Maldonado MD - 07/03/2024 2:38 PM EDT This note was created using SQLstream. Subjective Bronson Weller is a 59 year [...] had been staying with his brother in [place] who was coughing. Review of Systems Constitutional: [...] of Both Eyes Coronary Artery Disease Involving Torres Martinez Coronary Artery of Torres Martinez Heart Without Angina Pectoris Posttraumatic Stress Disorder [...] bedtime. Blood-Glucose Meter,Continuous (FREESTYLE AGUSTIN 3 READER) [facility] [place] Check glucose 4 or more times daily. insulin glargine (LANTUS SOLOSTAR U-100 INSULIN) 100 unit/mL (3 mL) Inject 16 Units subcutaneously daily at bedtime. ursodiol (AILYN) 250 mg tablet Take 1 tablet by mouth twice daily. Per [facility]. ijpufv-kzibqfrk-pypbxho (CREON) 12,000-38,000 -60,000 unit delayed release capsule [...] now. Lobito Maldonado MD documented in this encounterUc Medical Center09-27-2024 Telephone encounter Note * Telephone Encounter - Rosemarie Munoz - 06/21/2024 3:09 PM EDT Pt is in [facility] will call back another day [facility]09-27-[facility] Miscellaneous Notes* Telephone Encounter - Rosemarie Munoz - 06/21/2024 3:09 PM EDT Pt is in [facility] will call back another day * Telephone [...] 21, 2024 1:40 PM documented in this encounterUc Medical Center09-27-2024 Telephone encounter Note * Telephone Encounter - Alis Chua APRN.CNP - 06/21/2024 2:05 PM EDT Today's appointment needs rescheduled Alis Chua APRN.CNP [facility]09-27-2024 Telephone encounter Note* Telephone Encounter - Davina [...] Li RN June 21, 2024 1:40 PM [facility]-30-[facility] Telephone encounter Note* Telephone Encounter - Kendy [...] Amador RN May 24, 2024 12:13 PM [facility]30[facility] Miscellaneous Notes* Telephone Encounter - Kendy Amador [...] 24, 2024 12:13 PM documented in this encounterUc Medical Center08-05-2024 History of Present illness Narrative* Rosemarie Palacios LPN - 04/29/2024 1:18 PM EDT Patient presents for Hepatitis B vaccine. Denies any problems at this time. Tolerated injection well. Rosemarie Palacios LPN documented in this encounterUc Medical Center07-29-2024 Telephone encounter Note * Telephone Encounter - Mariella Lenz RN - 04/22/2024 8:39 AM EDT Sonia with [facility] calls to request new prescription for Agustin 3 sensors as that is what patient uses and is requesting for order to say changes twice monthly as that is how they dispense for billing. Please review and advise. Mariella Lenz RN [facility]07-29-2024 Miscellaneous Notes* Telephone Encounter - Mariella Lenz RN - 04/22/2024 8:39 AM EDT Sonia with [facility] calls to request new prescription for Agustin 3 sensors as that is what patient uses and is requesting for order to say changes twice monthly as that is how they dispense for billing. Please review and advise. Mariella Lenz RN documented in this encounterUc Medical Center07-26-2024 Telephone encounter Note * Telephone Encounter - [...] Jackson RN April 19, 2024 2:41 PM [facility]07-26-2024 Miscellaneous Notes* Telephone Encounter - Tonio Jackson [...] 19, 2024 2:41 PM documented in this encounterUc Medical Center07-05-2024 Telephone encounter Note * Telephone Encounter - [...] Macario LPN March 29, 2024 2:51 PM [facility]07-05-2024 Miscellaneous Notes* Telephone Encounter - Eden Macario [...] 29, 2024 2:51 PM documented in this encounterUc Medical Center06-12-2024 Telephone encounter Note * Telephone Encounter - Alis Chua APRN.CNP - 03/06/2024 8:52 AM EDT Refilled in a different encounter Alis Chua APRN.CNP [facility]06-12-2024 Miscellaneous Notes* Telephone Encounter - Alis Chua APRN.CNP - [...] 06, 2024 8:49 AM documented in this encounterUc Medical Center06-12-2024 Telephone encounter Note * Telephone Encounter - [...] Li RN March 06, 2024 8:49 AM [facility] Telephone encounter Note* Telephone Encounter - Chanell [...] Ji RN March 01, 2024 4:46 PM [facility] Miscellaneous Notes* Telephone Encounter - Chanell Ji [...] 01, 2024 4:46 PM documented in this encounterUc Medical Center06-04-2024 Telephone encounter Note * Telephone Encounter - Rhona Samayoa LPN - 02/27/2024 3:42 PM EDT Below results left on identified vm. Advised Patient to call [facility] for follow-up appt. Rhona Samayoa LPN [facility]06-04-2024 Miscellaneous Notes* Telephone Encounter - Rhona Samayoa LPN - 02/27/2024 3:42 PM EDT Below results left on identified vm. Advised Patient to call [facility] for follow-up appt. Rhona Samayoa LPN * Telephone Encounter - Rhona Samayoa LPN - 02/27/2024 3:39 PM EDT ----- Message from Alis Chua APRN.TRAFFIC OFFICER sent at 02/27/2024 3:08 PM EDT ----- Please let the patient know the echocardiogram was okay. Recommend scheduling follow-up with his net developer software engineer c Alis Chua APRN.TRAFFIC OFFICER documented in this encounterUc Medical Center06-04-2024 Telephone encounter Note * Telephone Encounter - Rhona Samayoa LPN - 02/27/2024 3:39 PM EDT ----- Message from Alis Chua APRN.TRAFFIC OFFICER sent at 02/27/2024 3:08 PM EDT ----- Please let the patient know the echocardiogram was okay. Recommend scheduling follow-up with his net developer software engineer c Alis Chua APRN.TRAFFIC OFFICER [facility]05-17-2024 Telephone encounter Note* Telephone Encounter - Mariella [...] Please advise. Thank you. Mariella Lenz RN. [facility]05-17-2024 Miscellaneous Notes* Telephone Encounter - Mariella Lenz [...] you. Mariella Lenz RN. documented in this encounterUc Medical Center05-15-2024 Telephone encounter Note * Telephone Encounter - Liza Jennings LPN - 02/07/2024 8:18 AM EDT Phoned patient and went over results, notes from Alis Chua WALL WORKER with understanding. Patient uses [facility] and gets 30 day rx. [facility]-15[facility] Miscellaneous Notes* Telephone Encounter - Liza Jennings LPN - 02/07/2024 8:18 AM EDT Phoned patient and went over results, notes from Alis Chua WALL WORKER with understanding. Patient uses [facility] and gets 30 day rx. * Telephone Encounter - Liza Jennings LPN - 02/07/2024 8:15 AM EDT ----- Message from Alis Chua APRN.TRAFFIC OFFICER sent at 02/07/2024 7:45 AM EDT ----- [...] of his labs looked okay Alis Chua APRN.TRAFFIC OFFICER documented in this encounterUc Medical Center05-15-2024 Telephone encounter Note * Telephone Encounter - Liza Jennings LPN - 02/07/2024 8:15 AM EDT ----- Message from Alis Chua APRN.TRAFFIC OFFICER sent at 02/07/2024 7:45 AM EDT ----- [...] of his labs looked okay Alis Chua APRN.TRAFFIC OFFICER [facility]05-13-20[facility] History of Present illness Narrative* Puja Starr [...] PATIENT PRESENTS WITH AN IMPLANTABLE OR ATTACHED MEXICAN FOOD MACHINE TENDER: No RADIOLOGY DEPARTMENT: General X-ray: Exam(s) Completed: Chest X-Ray PERIPHERAL IV DATA: Not applicable SIGNED BY: RT Isaiah(R) February 05, 2024 2:50 PM documented in this encounterUc Medical Center05-13-2024 Instructions* Patient Instructions* Alis Chua, COMPRESSOR OPERATOR ADJUSTER.TRAFFIC OFFICER - 02/05/2024 1:46 PM EDT Screening schedule [...] review all the medicines you take, even jlmv-spc-twdhxds medicines. As you get older, the way [...] have certain medical conditions. documented in this encounterUc Medical Center05-13-2024 History of Present illness Narrative* Alis Chua APRN.EVA - 02/05/2024 1:28 PM EDT Images from [...] (Internal Medicine) Kat Galindo-ophthalmology Outside specialists seen: [facility], Neurology- Dr.Friend Kristin- neurology Medical/Family history review Reviewed and updated [...] with the patient: Patient was admitted to [facility] 01/06 to 01/07 for alcohol induced acute on chronic pancreatitis. He has not had a drink since discharge. Pancreatitis managed by BELKYS Delgado Friend. No further episodes of abdominal pain. He [...] PND, orthopnea, edema. He last saw his net developer software engineer c November 2022. Last echo in 2013 and [...] ICD9: 345.90, ICD10: G40.309 Stable Alis Chua APRN.TRAFFIC OFFICER documented in this encounterUc Medical Center05-11-2024 Telephone encounter Note * Telephone Encounter - Adore Perry LPN - 02/03/2024 10:41 AM EDT Pt has appt 02/05/24. Refills can be reviewed then. [facility] Miscellaneous Notes* Telephone Encounter - Adore Perry LPN - 02/03/2024 10:41 AM EDT Pt has appt 02/05/24. Refills can be reviewed then. * Telephone Encounter - Caroline Mcfadden - 02/02/2024 1:41 PM EDT Patient has been identified by name and date of : Yes, [facility] phones for refill(s): Requested Prescriptions Pending [...] Thank you. Caroline Jarrett. documented in this encounterUc Medical Center05-10-2024 Telephone encounter Note * Telephone Encounter - Caroline Mcfadden - 02/02/2024 1:41 PM EDT Patient has been identified by name and date of : Yes, [facility] phones for refill(s): Requested Prescriptions Pending [...] 02/05/2024 Please advise. Thank you. Caroline Jarrett. [facility]-23-[facility] Instructions* Patient Instructions* Puja Pepper, OD - 01/16/2024 11:50 AM EDT ASSESSMENT/PLAN: 1. 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 Return in 6 months for Intraocular pressure check and possible testing. 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 Return in 6 months for Intraocular pressure check and possible testing. Puja Pepper, SHIRA documented in this encounterUc Medical Center04-23-2024 NoteDate of Procedure 01/16/2024. Quality Right Eye Good. Left Eye Good. NFL Interpretation Right Eye Inferior loss, Temporal loss. Left Eye Inferior loss, Temporal loss. Ganglion Cell Layer Thickness Right Eye Diffuse loss. Left Eye Diffuse loss. Interval Change Right Eye Stable. Left Eye Worse.[id number] NoteDate of Procedure 01/16/2024. Reliability Right Eye Good. Left Eye Borderline. Interpretation Right Eye Normal. Left Eye Nasal step defect (possible early). Interval Change Right Eye Stable. Left Eye Stable.[id number] History of Present illness Narrative* Adore Perry LPN - 01/10/2024 10:35 AM EDT TRANSITION CARE MANAGEMENT (TCM) INITIAL CONTACT Enterprise Records Analyst Outreach Provider Action/FYI: TCM Initial contact with patient post discharge, spoke to patient. Patient identified by name and . TRANSITION CARE MANAGEMENT INITIAL OUTREACH DOCUMENTATION: 01/10/2024 Date of Outreach: Date of Discharge 01/08/2024 SUMMARY: -Pt discharged from [facility] on 01/08/24. -Admitted for: pancreatitis Do you [...] for provider to review documented in this encounterUc Medical Center04-15-2024 Discharge summary Author Mg Patel [facility] January 08, 2024 10:35am Note Date/Time January 08, 2024 10: 24am [facility] Medical Records Department [address] [place] [address] Discharge Summary 01/08/24 1022 MR#: [id number] Acct: [id number] Name: BRONSON WELLER Rep #:[id number] : 1965 58 From: Mg Patel MD PCP: Dr. Lobito Maldonado MD Status:A DM IN Location: [place] [address]- 1 Providers Date of Admission: 01/07/24 Date of [...] (Auto) 76.7 H, Lymph % (Auto) 14.6L, [place] % (Auto) 8.0, Eos % (Auto) 0.0, [...] Self Care Charges/Coding Visit Charges Inpatient E&M: 17330 Disch Hosp >30min 01/08/24 1035 <Electronically signed by Mg Patel MD> Cosigner Signature (if applicable): CC: Dr. Mg Patel MD; Dr. Lobito Maldonado MD~ Signed [facility] Work Phone: 1(566) 857-816504-14-2024 History and physical note Author Daiana [facility] January 07, 2024 8:27am Note Date/Time January 07, 2024 8:2 7am [facility] Medical Records Department [address] [place] [address] H&P Exam - Hospitalist 01/07/24 0815 MR#: [id number] Acct: [id number] Name: BRONSON WELLER Rep #:[id number] : 1965 58 From: Daiana Banda DO PCP: Dr. Lobito Maldonado MD Status:A DM IN Location: [place] [address] HPI - General General Date of Admission: 01/07/24 Date of Service: 01/07/24 Chief Complaint: Abdominal pain HPI Narrative BRONSON WELLER, is a 58 M who presents to the emergency room at [facility] with complaints of mid abdominal pain that [...] detox program ice here in the hospital. [facility] Medical History Alcohol abuse Anxiety and [...] use type: does not use caffeine: No robbin/jew: Mosque seatbelt use: always ROS Constitutional Constitutional: Denies [...] % (Auto) 68.3, Lymph % (Auto) 24.4, [place] % (Auto) 5.2, Eos % (Auto) 1.4, [...] Signed: Jacklyn Dougherty MD at 8:00 EDT Reading Location ID and State: [facility] / [place] Tel , Service support , Assessment & Plan Assessment/Plan (1) Acute [...] 75 minutes Charges/Coding Visit Charges Inpatient E&M: 60022 Init Hosp L3 01/07/24 0827 <Electronically signed by Daiana Banda DO> Cosigner Signature (if applicable): CC: Dr. Daiana Banda DO; Dr. Lobito Maldonado MD~ Signed [facility] Work Phone: 1(940) 314-545804-14-2024 Discharge summary Author Phillip Ortegajuanjose [facility] January 07, 2024 7:38am Note Date/Time January 07, 2024 3:3 5am [facility] Medical Records Department [address] [place] [address] Emergency Department Summary 01/07/24 MR#: [id number] Acct: [id number] Name: BRONSON WELLER Rep #:[id number] : 1965 58 From: Phillip Aguiar DO PCP: Dr. Lobito Maldonado MD Status:R EG ER Location: ED HPI History of Present Illness Chief Complaint: Abd Pain Informant: patient Narrative Narrative: Patient is a 58-year-old male with past medical history of hypertension hyperlipidemia epilepsy udn-mmourkd-unbcdtbxj diabetes and chronic pancreatitis. He states that on Monday as the weather was nice he was out working in his yard. He states after finishing his work he decided to "have 3 beers". He states this was more mid afternoon around 3 or 4 PM. He reports he was doing well but this evening began with upper abdominal pain and bouts of nausea and vomiting that felt similar nature to his previous issues of pancreatitis and secondary to this called EMS to bring him in for evaluation. [facility] Medical History Alcohol abuse Anxiety and depression [...] use type: does not use caffeine: No robbin/jew: Mosque seatbelt use: always ROS ROS ED Constitutional [...] % (Auto) 68.3 Lymph % (Auto) 24.4 [place] % (Auto) 5.2 Eos % (Auto) 1.4 [...] Provider] - Disposition Disposition: Acute Care Hospital [facility] What to do if you have Problems For any increased pain, shortness of breath, bleeding, nausea or vomiting, chestpain, or any unexpected problems, contact your Primary Care Provider. Call [facility] ([phone]) or report to the closest Emergency Room. Call 911 if necessary. 01/07/24 0738 <Electronically signed by Phillip Aguiar DO> Cosigner Signature (if applicable): CC: Dr. Lobito Maldonado MD ~ Signed [facility] Work Phone: 1(668) 587-800504-14-2024 Discharge summary Author Phillip Aguiar [facility] January 07, 2024 7:38am Note Date/Time January 07, 2024 3:3 5am [facility] Medical Records Department [address] [place] [address] Emergency Department Summary 01/07/24 MR#: [id number] Acct: [id number] Name: BRONSON WELLER Rep #:[id number] : 1965 58 From: Phillip Aguiar DO PCP: Dr. Lobito Maldonado MD Status:R EG ER Location: ED HPI History of Present Illness Chief Complaint: Abd Pain Informant: patient Narrative Narrative: Patient is a 58-year-old male with past medical history of hypertension hyperlipidemia epilepsy jzr-eppwtuz-tdlgtksph diabetes and chronic pancreatitis. He states that on Monday as the weather was nice he was out working in his yard. He states after finishing his work he decided to "have 3 beers". He states this was more mid afternoon around 3 or 4 PM. He reports he was doing well but this evening began with upper abdominal pain and bouts of nausea and vomiting that felt similar nature to his previous issues of pancreatitis and secondary to this called EMS to bring him in for evaluation. [facility] Medical History Alcohol abuse Anxiety and depression [...] use type: does not use caffeine: No robbin/jew: Mosque seatbelt use: always ROS ROS ED Constitutional [...] % (Auto) 68.3 Lymph % (Auto) 24.4 [place] % (Auto) 5.2 Eos % (Auto) 1.4 [...] Provider] - Disposition Disposition: Acute Care Hospital [facility] What to do if you have Problems For any increased pain, shortness of breath, bleeding, nausea or vomiting, chestpain, or any unexpected problems, contact your Primary Care Provider. Call [facility] ([phone]) or report to the closest Emergency Room. Call 911 if necessary. 01/07/24 0738 <Electronically signed by Phillip Aguiar DO> Cosigner Signature (if applicable): CC: Dr. Lobito Maldonado MD ~ Signed [facility] Work Phone: [phone] 311-261504-04-2024 Telephone encounter Note* Telephone Encounter - Vanessa Horan OA - 12/28/2023 9:51 AM EDT Can someone please call this patient and get him scheduled for an eye exam with Dr.Teresa Pepper here in [place]. Patient is aware and is expecting a call to get scheduled. Thank you, BRITNEY Manjarrez [facility]-04-2024 Miscellaneous Notes* Telephone Encounter - Vanessa Horan OA - 12/28/2023 9:51 AM EDT Can someone please call this patient and get him scheduled for an eye exam with Dr.Teresa Pepper here in [place]. Patient is aware and is expecting a call to get scheduled. Thank you, BRITNEY Manjarrez documented in this encounterUc Medical Center03-04-2024 History of Present illness Narrative* Rosemarie Palacios LPN - 11/27/2023 1:29 PM EST Patient presents for Hepatitis B vaccine. Denies any problems at this time. Tolerated injection well. Rosemarie Palacios LPN documented in this encounterUc Medical Center02-22-2024 Miscellaneous Notes* Telephone Encounter - Natacha Cooper - 11/16/2023 1:37 PM EST Rx's faxed to [place] [facility] . Natacha Cooper * Telephone Encounter - Natacha Cooper - 11/16/2023 1:33 PM EST Patient informed monitor was ordered. Requesting it to be sent to [facility] on file. Natacha Cooper * Telephone [...] - 11/14/2023 1:26 PM EST Estela from [facility] calls and reports that patient was seen in ER on 11/08 for abdominal pain. Patient was given medications and then sent home. Estela also reports that patient is requesting a continuous glucose monitor. Estela asking if a prescription can be faxed over to [facility] prior authorization at [phone]? Please review and advise, Davina Li RN documented in this encounterUc Medical Center12-05-2023 Miscellaneous Notes* Telephone Encounter - Eden Macario [...] you. Eden Macario LPN. documented in this encounterUc Medical Center11-27-2023 Miscellaneous Notes* Telephone Encounter - Mariella Lenz [...] 05/21/2021 39 Please advise. Thank you. Mariella Lezn RN. documented in this encounterUc Medical Center11-15-2023 Discharge summary Author Neftali Dickson [facility] August 09, 2023 5:30am Note Date/Time August 09, 2023 3:33am [facility] Medical Records Department [address] [place] [address] Emergency Department Summary 08/09/23 MR#: [id number] Acct: [id number] Name: BRONSON WELLER Rep #:[id number] : 1965 58 From: Neftali Amezquita PCP: Dr. Lobito Maldonado MD Status:R EG ER Location: ED HPI History of Present Illness Chief Complaint: Abd Pain PFSH PFSH Medical History Alcohol abuse Anxiety and depression [...] use type: does not use caffeine: No robbin/jew: Mosque seatbelt use: always EXAM Physical Exam Const Vital Signs: 08/09/23 03:27 Temperature 97.3 F L Temperature Source Temporal Pulse Rate 98 Respiratory Rate 12 Blood Pressure 148/97 H Blood Pressure Mean 114 Pulse Ox 99 Oxygen Delivery Method Room Air [facility] Narrative Medical decision making narrative: HISTORY OF [...] History obtained from others: none Consults: none [facility] Narrative: Was hemodynamically stable, afebrile, nontoxic-appearing. Abdominal [...] % (Auto) 50.2 Lymph % (Auto) 39.7 [place] % (Auto) 6.6 Eos % (Auto) 2.4 [...] Angulo MD at 5:14 EST , ADDENDUM: 08/09/23523 IMPRESSION: There is a subtle hazy appearance [...] Triage Chief Complaint: Abd Pain ED Provider: Neftali Dickson Dx/Rx/DC Orders Instructions: Pancreatitis Acute Dc [...] your Primary Care Provider. Call [facility] ([phone]) or report to the closest Emergency Room. Call 911 if necessary. 08/09/23 0530 <Electronically signed by Neftali Dickson DO> Cosigner Signature (if applicable): CC: Dr. Lobito Maldonado MD ~ Signed [facility] Work Phone: 1(562) 229-877809-22-2023 Miscellaneous Notes* Telephone Encounter - Heidi Jimenez Ma - 06/16/2023 10:58 AM EDT Letter mailed to pt notifying him that repeat chest xray was negative. Heidi Jimenez Ma * Telephone Encounter - Heidi Jimenez Ma - 06/16/2023 10:58 AM EDT ----- Message from Lobito Maldonado MD sent at 06/15/2023 6:16 PM EDT ----- CXR negative. documented in this encounterUc Medical Center09-15-2023 History of Present illness Narrative* Older, Alis, COMPRESSOR OPERATOR ADJUSTER.TRAFFIC OFFICER - 06/09/2023 12:44 PM EDT CC: Patient [...] Coronary artery disease 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 09/25/2011 DDD (degenerative [...] 1 tablet by mouth twice daily. Per [facility]. srslwy-nvtdogjz-runwlqj (CREON) 12,000-38,000 -60,000 unit delayed release capsule [...] results. Alis Dunne APRN.CNP documented in this encounterUc Medical Center09-11-2023 History of Present illness Narrative* Puja Starr [...] 05, 2023 12:30 PM documented in this encounterUc Medical Center08-25-2023 Instructions* Patient Instructions* Danilo Benitez - 05/19/2023 [...] or sore from your shoes, do not "pop" it. Apply a bandage and wear a differentpair of shoes. Take Care of Your Toenails Cut toenails after bathing, when they are soft. Cut toenails straight across and smooth with a nail file. Avoid cutting into the corners of toes. Do not cut cuticles. If you have neuropathy (or decreased sensation in your feet) a port warden should always cut your toenails. Be Careful [...] your shoes are too tight. Perform the "footwear test" described below. Footwear Test Use this simple [...] Go to your health care provider or port warden to treat these conditions. documented in this encounterUc Medical Center08-25-2023 History of Present illness Narrative* Danilo Benitez [...] 01/25/2023 10.9 05/19/2022 6.8 11/17/2020 7.0 HBA1C, [place] (%) Date Value 01/04/2011 5.3 Hemoglobin A1C (POCT) (%) Date Value 05/04/2023 7.8 PCP: Lobito Maldonado MD PAST MEDICAL HISTORY Diagnosis Date Acute myocardial infarction of other specified sites, episode of care unspecified 09/2011 Myocardial Infarction Alcohol abuse 05/14/2021 Alcohol induced acute pancreatitis 05/14/2021 Cervical radiculopathy 10/21/2014 Cervical spondylosis 10/21/2014 Chronic cholecystitis 01/07/2019 Coronary artery disease 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 09/25/2011 DDD (degenerative [...] 1 tablet by mouth twice daily. Per [facility]. hhkoif-npcsqlsa-rbhfxfd (CREON) 12,000-38,000 -60,000 unit delayed release capsule [...] Objective: Patient [facility] Constitutional: Pt is a well [...] of diabetes with neuropathy. documented in this encounterUc Medical Center08-07-2023 Miscellaneous Notes* Telephone Encounter - Cari Moss [...] you. Cari Moss RN documented in this encounterCleveland [id number] Gandhi [facility] March 10, 2023 7:14pm Note Date/Time March 10, 2023 5:42 pm [facility] Medical Records Department [address] [place] [address] Emergency Department Summary 03/10/23 MR#: [id number] Acct: [id number] Name: BRONSON WELLER Rep #:[id number] : [...] epigastric pain similarto his previous pancreatitis was "coming on again". He switched to a liquid diet and [...] any recent dietary indiscretion or alcohol use. [facility] Medical History Alcohol abuse Anxiety and depression [...] use type: does not use caffeine: No robbin/jew: Mosque seatbelt use: always ROS ROS ED ROS [...] clear liquid diet and follow-up with his manufacturing manager, Dr. Santamaria. I do not feel that [...] % (Auto) 68.6 Lymph % (Auto) 22.4 [place] % (Auto) 7.0 Eos % (Auto) 1.5 [...] 1RF Primary Care Provider: Lobito Maldonado Referrals: Friend,DO Taras [Med Staff - Active Staff] - As soon as possible Lobito Maldonado MD [Primary Care Provider] - Disposition Disposition: Home, Self Care What to do if you have Problems For any increased pain, shortness of breath, bleeding, nausea or vomiting, chestpain, or any unexpected problems, contact your Primary Care Provider. Call [facility] ([phone]) or report to the closest Emergency Room. Call 911 if necessary. 03/10/231913 <Electronically signed by Alejandro Gandhi MD> Cosigner Signature (if applicable): CC: Dr. Lobito Maldonado MD; Taras Friend, DO ~ Signed [facility] Work Phone: 1(992) 527-709605-30-2023 History of Present illness Narrative* Freedom Delacruz [...] 21, 2023 10:06 AM documented in this encounterUc Medical Center05-15-2023 Instructions* Patient Instructions* Lobito Maldonado MD - 02/06/2023 1:42 PM EDT TAKE EXTRA 10 UNITS OF LANTUS WHEN YOU GET HOME. STARTING TOMORROW, TAKE LANTUS 14 UNITS. EVERY 3 DAYS INCREASE OR ADD 2 UNITS UNTIL MOST OF YOUR FASTING GLUCOSE ARE 140 OR LESS. THEN STOP AT THAT LANTUS INSULIN DOSE. documented in this encounterUc Medical Center05-15-2023 History of Present illness Narrative* Lobito Maldonado MD - 02/06/2023 1:14 PM EDT This note was created using SQLstream. Subjective Bronson Weller is a 57 year [...] of Both Eyes Coronary Artery Disease Involving Torres Martinez Coronary Artery of [place] Heart Without Angina Pectoris Posttraumatic Stress Disorder [...] 1 tablet by mouth twice daily. Per [facility] afzasf-egqfwxwf-aisrjno (CREON) 12,000-38,000 -60,000 unit delayed release capsule [...] - ICD9: 787.02, ICD10: R11.0 (primary diagnosis) [place] diet. 2. Hypertension, essential - ICD9: 401.9, [...] <140. Lobito Maldonado MD documented in this encounterUc Medical Center05-03-2023 Miscellaneous Notes* Telephone Encounter - Lobito Maldonado MD - 01/25/2023 9:51 AM EDT Noted. * Telephone Encounter - Prema Springer LPN - 01/24/2023 9:26 AM EDT Estela from [facility] to report pt was seen at [facility] ED 01/21/23 for chest pain. She reports pthad a neg CT scan. Records in [facility] Prema Springer LPN documented in this encounterUc Medical Center04-24-2023 Miscellaneous Notes* Telephone Encounter - Kendy Amador RN - 01/16/2023 4:27 PM EDT Patient has been identified by name and date of : Yes, Provider Dr Maldonado Date 01/16/23 [id number]. Pharmacy phones for refill(s): Requested Prescriptions Pending [...] you. Kendy Amador RN documented in this encounterUc Medical Center2023 Miscellaneous Notes* Telephone Encounter - Lobito Maldonado MD - 12/29/2022 10:00 AM EDT Noted. * Telephone Encounter - Tonio Jackson RN - 12/27/2022 9:58 AM EDT [facility], phoned to let pcp know, patient was seen in [facility] ER yesterday and treated for seizure, stomach/side pain. documented in this encounterUc Medical Center03-28-2023 Miscellaneous Notes* Telephone Encounter - Rhona Samayoa LPN - 12/20/2022 3:30 PM EDT Patient notified that he has 1 refill of Gabapentin 300mg, written 10/19/2022, x180 capsules, 1 refill. Patient will check with his pharmacy. Rhona Samayoa LPN * Telephone Encounter [facility] - 12/20/2022 3:21 PM EDT Patient has been identified by name and date of : Yes Requested Prescriptions Pending Prescriptions Disp Refills gabapentin (NEURONTIN) 300 mg capsule 180 capsule 1 Sig: Take 1 capsule by mouth twice daily for 180 days. RX INSTRUCTIONS: Pharmacy initiated this request. No need to notify patient. Gin Martins [facility] documented in this encounterUc Medical Center03-24-2023 Miscellaneous Notes* Telephone Encounter - Arcelia Arias LPN - 12/16/2022 8:41 AM EDT Patient notified.Arcelia Arias LPN * Telephone Encounter - DAFNE Collins - 12/16/2022 7:08 AM EDT Negative for COVID and flu documented in this encounterUc Medical Center03-23-2023 History of Present illness Narrative* Emmanuel Fritz [...] Coronary artery disease 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 09/25/2011 DDD (degenerative [...] 1 tablet by mouth twice daily. Per [facility] hosunp-haicxeik-hetyvpb (CREON) 12,000-38,000 -60,000 unit delayed release capsule [...] drops. Emmanuel Fritz MD documented in this encounterUc Medical Center03-22-[address] Cherry [facility] December 14, 2022 3:32am Note Date/Time December 13, 2022 11: 25pm [facility] Medical Records Department [address] [place] [address] Emergency Department Summary 12/13/22 MR#: [id number] Acct: [id number] Name: BRONSON WELLER Rep #:[id number] : [...] illness prior to the symptoms starting tonight. [facility] Medical History Alcohol abuse Anxiety and depression [...] #30 tabs 09/08/22 [Rx Last Taken 11/28/22] tzfjzs-exjarhoy-agmmtyo 12,000-38,000-60,000 unit capsule,delayed rel (Creon) 1 cap [...] use type: does not use caffeine: No robbin/jew: Mosque seatbelt use: always ROS ROS ED Constitutional [...] 85.9 H Lymph % (Auto) 10.3 L [place] % (Auto) 2.4 Eos % (Auto) 0.0 [...] (Auto) Neut % (Auto) Lymph % (Auto) [place] % (Auto) Eos % (Auto) Baso % [...] fluticasone propionate [Flonase Allergy Relief] 50 mcg/actuation [place],Suspension 2 spray INTRANASAL DAILY escitalopram oxalate 10 [...] your Primary Care Provider. Call [facility] ([phone]) or report to the closest Emergency Room. Call 911 if necessary. 12/14/22331 <Electronically signed by Saurabh Cherry MD> Cosigner Signature (if applicable): CC: Dr. Lobito Maldonado MD ~ Signed [facility] Work Phone: 1(185) 755-670903-20-2023 Miscellaneous Notes* Telephone Encounter - Tonio Mueller Manuel RN - 12/12/2022 10:52 AM EDT Patient [...] you. Tonio Jackson RN documented in this encounterUc [facility] Center03-17-2023 History of Present illness Narrative* Lobito Maldonado MD - 12/09/2022 10:39 AM EDT This note was created using A-Gasriter. Subjective Transitional Care Management Progress Note The [...] of Both Eyes Coronary Artery Disease Involving Torres Martinez Coronary Artery of Torres Martinez Heart Without Angina Pectoris Posttraumatic Stress Disorder [...] use: Never Current Outpatient Medications Medication Sig ltfzqg-ztgbiwpf-mpqbumo (CREON) 12,000-38,000 -60,000 unit delayed release capsule [...] 1 tablet by mouth twice daily. Per [facility]. No current facility-administered medications for this [...] TABLET Lobito Maldonado MD documented in this encounterUc Medical Center03-14-2023 History of Present illness Narrative* Adore Perry LPN - 12/06/2022 3:49 PM EDT Message left again for return call from pt. * Adore Perry LPN - 12/06/2022 12:15 PM EDT Message left for pt to return call to a nurse to complete TCM note. documented in this encounterUc Medical Center03-10-[address] [facility] 02, 2022 1:54pm Note Date/Time December 02, 2022 1:5 4pm [facility] Medical Records Department [address] [place] [address] Instructions for Home/Discharge Instructions 12/02/22 1353 MR#: [id number] Acct: [id number] Name: BRONSON WELLER Rep #:[id number] : [...] fluticasone propionate [Flonase Allergy Relief] 50 mcg/actuation [place],Suspension 2 spray INTRANASAL DAILY escitalopram oxalate 10 [...] can be placed): Home, Self Care 12/02/22 8762<Electronically signed by Veena Tidwell MD>Veena Tidwell MD CC: Dr. Mayelin Pedraza MD; Dr. Lobito Maldonado MD ~ Signed [facility] Work Phone: [phone]) 826-105103-09-2023 Progress note Author Taras Friend [facility] December 01, 2022 6:24pm Note Date/Time December 01, 2022 6:24 pm [facility] Medical Records Department [address] [place] [address] Progress Note 12/01/22 1822 MR#: [id number] Acct: [id number] Name: BRONSON WELLER Rep #:[id number] : 1965 57 From: Taras Friend DO PCP: Dr. Lobito Maldonado MD Status:A DM IN Location: MS3 WY587-3 Subjective Subjective Patient had some more abdominal [...] (Auto) 70.5 H, Lymph % (Auto) 22.1, [place] % (Auto) 6.4, Eos % (Auto) 0.1, [...] him Reglan 5 mg every 6 hours hrcecx-bdl-tgfpd.? I would give him Colace 100mg p.o. [...] hematocrit and BUN are improving as per Ridgway's criteria. 12/01/2022-I agree with changes in his [...] and CRP. Charges/Coding Visit Charges Inpatient E&M: 84278 Subs Hosp L3 12/01/22 1824 <Electronically signed by Taras Santamaria DO> Taras Santamaria DO Cosigner Signature (if applicable): CC: ~ Signed [facility] Work Phone: 1(482) 129-396103-09-2023 Consult note Author Taras Santamaria [facility] December 01, 2022 6:15pm Note Date/Time November 29, 2022 5:25 pm [facility] Medical Records Department [address] [place] [address] Consultation - GI 11/29/22 1724 MR#: [id number] Acct: [id number] Name: BRONSON WELLER Rep #:[id number] : 1965 57 From: Taras Santamaria DO PCP: Dr. Lobito Maldonado MD Status:A DM IN Location: [facility] [place] BC118-8 HPI Consult Data Date of Consult: 11/29/22 [...] well as 1 L normal saline bolus. [facility] Medical History (Updated 11/29/22 @ 13:12 by [...] #30 tabs 09/08/22 [Rx Last Taken 11/28/22] aefypz-zixiqwlu-sggcsas 12,000-38,000-60,000 unit capsule,delayed rel (Creon) 1 cap [...] use type: does not use caffeine: No robbin/jew: Mosque seatbelt use: always ROS ROS Narrative Admission [...] 78.1 H, Lymph % (Auto) 14.0 L, [place] % (Auto) 6.5, Eos % (Auto) 0.6, [...] 0.80, AST 13 L, ALT 20, Alkaline Wlyanzyljgd49, Total Protein 8.3 H, Albumin 4.3, Globulin [...] (Auto) 75.2 H, Lymph % (Auto) 16.2L, [place] % (Auto) 7.3, Eos % (Auto) 0.5, Baso % (Auto) 0.3, Absolute Neuts (auto)9.6 H, Absolute Lymphs (auto) 2.07, Nucleated RBC % 0 11/29/22 06:20: Sodium 137, Potassium 3.6, Chloride 105, Carbon Dioxide 25.0, Anion Gap 7, BUN 13, Creatinine 0.99, Estim Creat Clear Calc 85.00, Est GFR (MDRD) Af Amer 100, Est GFR (MDRD) Non-Af 83, BUN/Creatinine Ratio 13.1, Fnolzvw679 H, Calcium 9.0, Total Bilirubin 0.70, AST [...] him Reglan 5 mg every 6 hours fwcytv-otf-znrrv.? I would give him Colace 100mg p.o. [...] endoscopic procedure. Charges/Coding Visit Charges Inpatient E&M: 54536 Init Hosp 12/01/221814 <Electronically signed by Taras Friend DO> Cosigner Signature (if applicable): CC: Dr. Mayelin Pedraza MD; Dr. Lobito Maldonado MD~ Signed [facility] Work Phone: 1(370) 809-808203-09-[address] Tidwell [facility] December 01, 2022 4:39pm Note Date/Time December 01, 2022 11:3 5am [facility] Medical Records Department [address] [place] [address] Progress Note 12/01/22 1132 MR#: [id number] Acct: [id number] Name: BRONSON WELLER Rep #:[id number] : 1965 57 From: Veena Tidwell MD PCP: Dr. Lobito Maldonado MD Status:A DM IN Location: MS3 VC647-1 Subjective Subjective Patient seen and examined. He [...] (Auto) 70.5 H, Lymph % (Auto) 22.1, [place] % (Auto) 6.4, Eos % (Auto) 0.1, [...] prophylaxis: lovenox Charges/Coding Visit Charges Inpatient E&M: 71893 Subs Hosp L2 12/01/22 0934 <Electronically signed by Veena Tidwell MD> Veena Tidwell MD Cosigner Signature (if applicable): CC: ~ Signed [facility] Work Phone: [phone]) 251-599603-09-2023 Miscellaneous Notes* Telephone Encounter - Rhona Samayoa LPN - 12/01/2022 3:22 PM EST Spoke to [facility], they did receive RX and will contact Patient when it is ready for pickup. Rhona Samayoa LPN * Telephone Encounter - Lobito Maldonado MD - 12/01/2022 1:04 PM EST Patient's request for medication is as follows Requested Prescriptions Signed Prescriptions Disp Refills apphda-ydmbyyvp-fqotsoi (CREON) 12,000-38,000 -60,000 unit delayed release capsule 90 capsule 5 Sig: Take 1 capsule by mouth three times daily with meals. Authorizing Provider: LOBITO MALDONADO Order entered - please phone pharmacy and notify patient. Lobito Maldonado MD * Telephone Encounter - Tonio Jackson RN - 12/01/2022 9:08 AM EST [facility] reports patient was prescribed Creon 06807 units 1 capsule 3 times day before meals and/or snacks, #90 with refills, in August, by a hospital. Patient needs refill. Asking if pcp would send refill for this medication? It is not on patient's current med list. documented in this encounterUc Medical Center03-08-[address] Tidwell [facility] November 30, 2022 5:30pm Note Date/Time November 30, 2022 11:3 2am [facility] Medical Records Department [address] [place] [address] Progress Note 11/30/22 1126 MR#: [id number] Acct: [id number] Name: BRONSON WELLER Rep #:[id number] : 1965 57 From: Veena Tidwell MD PCP: Dr. Lobito Maldonado MD Status:A DM IN Location: MS3 RD160-0 Subjective Subjective Patient seen and examined. His [...] 80.3 H, Lymph % (Auto) 13.7 L, [place] % (Auto) 4.9, Eos % (Auto) 0.0, Baso % (Auto) 0.2, Absolute Neuts (auto)8.4 H, Absolute Lymphs (auto) 1.44, Nucleated RBC % 0 11/30/22 08:25: Sodium 138, Potassium 3.5, Chloride 107, Carbon Dioxide 23.0, Anion Gap 8, BUN 10, Creatinine 0.91, Estim Creat Clear Calc 92.48, Est GFR (MDRD) Af Amer 111, Est GFR (MDRD) Non-Af 91, BUN/Creatinine Ratio 11.0, Rfdpbht342 H, Calcium 8.4 L 11/30/22 08:25: ESR [...] Signed: Manohar Obrien MD at 6:40 EST [place] Location ID and State: [facility] / [place] Tel , Service support , Physical Exam Const alert, oriented x3 [...] prophylaxis: lovenox Charges/Coding Visit Charges Inpatient E&M: 65904 Subs Hosp L2 11/30/22 1730 <Electronically signed by Veena Tidwell MD> Veena Tidwell MD Cosigner Signature (if applicable): CC: ~ Signed [facility] Work Phone: [phone]) [phone] Progress note Author Taras Friend [facility] November 30, 2022 12:56pm Note Date/Time November 30, 2022 12:5 6pm [facility] Medical Records Department [address] [place] [address] Progress Note 11/30/22 1253 MR#: [id number] Acct: [id number] Name: BRONSON WELLER Rep #:[id number] : 1965 57 From: Taras Santamaria DO PCP: Dr. Lobito Maldonado MD Status:A DM IN Location: MS3 AU796-4 Subjective Subjective He thinks that the steroids [...] (Auto) 80.3 H, Lymph % (Auto) 13.7L, [place] % (Auto) 4.9, Eos % (Auto) 0.0, Baso % (Auto) 0.2, Absolute Neuts (auto)8.4 H, Absolute Lymphs (auto) 1.44, Nucleated RBC % 0 11/30/22 08:25: Sodium 138, Potassium 3.5, Chloride 107, Carbon Dioxide 23.0, Anion Gap 8, BUN 10, Creatinine 0.91, Estim Creat Clear Calc 92.48, Est GFR (MDRD) Af Amer 111, Est GFR (MDRD) Non-Af 91, BUN/Creatinine Ratio 11.0, Waxyzfq832 H, Calcium 8.4 L 11/30/22 08:25: ESR [...] him Reglan 5 mg every 6 hours ogqxzh-rsa-sdufa.? I would give him Colace 100mg p.o. [...] hematocrit and BUN are improving as per Ridgway's criteria. Charges/Coding Visit Charges Inpatient E&M: 03321 Subs Hosp L3 11/30/22 1256 <Electronically signed by Taras Santamaria DO> Taras Santamaria DO Cosigner Signature (if applicable): CC: ~ Signed [facility] Work Phone: [phone]) 246-429703-07-[address] Pedraza [facility] November 29, 2022 7:01pm Note Date/Time November 29, 2022 7:01 pm [facility] Medical Records Department [address] [place] [address] Progress Note - Hospitalist 11/29/22 1900 MR#: [id number] Acct: [id number] Name: NITHINBRONSON MISHEL Rep #:[id number] : 1965 57 From: Mayelin Pedraza MD PCP: Dr. Lobito Maldonado MD Status:A DM IN Location: MS3 EV036-8 Hospitalist Note Per GI recommendations will add azithromycin 500 mg IV to start now, colace 100 mg BID, scheduled reglan 5 mg q 6 hours and plan repeat CT A/P in AM to further assess. 11/29/22 1901 <Electronically signed by Mayelin Pedraza MD> Cosigner Signature (if applicable): CC: ~ Signed [facility] Work Phone: [phone]) 538-116503-07-[address] Tidwell [facility] November 29, 2022 5:39pm Note Date/Time November 29, 2022 1:09 pm [facility] Medical Records Department [address] [place] [address] [place] [address] Progress Note 11/29/22 1258 MR#: [id number] Acct: [id number] Name: BRONSON WELLER Rep #:[id number] : 1965 57 From: Veena Tidwell MD PCP: Dr. Lobito Maldonado MD Status:A DM IN Location: MS3 LR427-4 Subjective Subjective Patient seen and examined. He [...] 78.1 H, Lymph % (Auto) 14.0 L, [place] % (Auto) 6.5, Eos % (Auto) 0.6, [...] 0.80, AST 13 L, ALT 20, Alkaline Sevnndzcbhl90, Total Protein 8.3 H, Albumin 4.3, Globulin [...] (Auto) 75.2 H, Lymph % (Auto) 16.2L, [place] % (Auto) 7.3, Eos % (Auto) 0.5, Baso % (Auto) 0.3, Absolute Neuts (auto)9.6 H, Absolute Lymphs (auto) 2.07, Nucleated RBC % 0 11/29/22 06:20: Sodium 137, Potassium 3.6, Chloride 105, Carbon Dioxide 25.0, Anion Gap 7, BUN 13, Creatinine 0.99, Estim Creat Clear Calc 85.00, Est GFR (MDRD) Af Amer 100, Est GFR (MDRD) Non-Af 83, BUN/Creatinine Ratio 13.1, Lbbubgw306 H, Calcium 9.0, Total Bilirubin 0.70, AST [...] prophylaxis: lovenox Charges/Coding Visit Charges Inpatient E&M: 74357 Subs Hosp L3 11/29/22 4207 <Electronically signed by Veena Tidwell MD> Veena Tidwell MD Cosigner Signature (if applicable): CC: ~ Signed [facility] Work Phone: [phone] History and physical note Author Dr. Pedraza [facility] November 29, 2022 3:28am Note Date/Time November 29, 2022 2:44 am [facility] Medical Records Department [address] [place] [address] History & Physical Exam 11/29/22 0239 MR#: [id number] Acct: [id number] Name: BRONSON WELLER Rep #:[id number] : 1965 57 From: Mayelin Pedraza MD PCP: Dr. Lobito Maldonado MD Status:A DM IN Location: [facility] [place] LX135-9 HPI - General General Date of Admission: [...] persistent alcohol abuse currently who re-presentsto the [facility] ED on 11/29/22 with history of recurrent [...] hepatic profile with T. bili 0.8, AST/ALT , alk phos 71 otherwise not marked appearing, lipase 2513, ethyl alcohol less than 3. In the ED patient ministered Phenergan 12.5 mg IM IM x1, Zofran 4 mg IV x1, Dilaudid 0.5 mg IV x2, Benadryl 25 mg IV x1 as well as 1 L normal saline bolus. [facility] Medical History (Updated 11/29/22 @ 03:06 [...] #30 tabs 09/08/22 [Rx Last Taken Unknown] urdoqy-dtduuxbw-vguylrv 12,000-38,000-60,000 unit capsule,delayed rel (Creon) 1 cap [...] use type: does not use caffeine: No robbin/jew: Mosque seatbelt use: always ROS ROS Narrative Admission [...] 78.1 H, Lymph % (Auto) 14.0 L, [place] % (Auto) 6.5, Eos % (Auto) 0.6, [...] 0.80, AST 13 L, ALT 20, Alkaline Nkshdqcyfzd46, Total Protein 8.3 H, Albumin 4.3, Globulin [...] alcohol abuse currently who re-presents to the [facility] ED on 11/29/22 with history of recurrent [...] Patient does not have healthcare power of estate planning attorney nor livingwill in place but if he did need someone to make medical decisions for him if hecould not it would be his sister. Full Code status. Admission Evaluation Time spent evaluating chart, patient history, patient evaluation, care planning and discussion with specialists: 60 minutes. Charges/Coding Visit Charges Inpatient E&M: 59576 Init Hosp L2 11/29/22 0328 <Electronically signed by Mayelin Pedraza MD> Cosigner Signature (if applicable): CC: Dr. Mayelin Pedraza MD; Dr. Lobito Maldonado MD~ Signed [facility] Work Phone: [phone] Mora [facility] November 29, 2022 3:06am Note Date/Time November 28, 2022 11:3 1pm [facility] Medical Records Department [address] [place] [address] Emergency Department Summary 11/28/22 MR#: [id number] Acct: [id number] Name: BRONSON WELLER Rep #:[id number] : 1965 57 From: Magno Mora MD PCP: Dr. Lobito Maldonado MD Status:A DM IN Location: [facility] [place] HP865-6 HPI HPI - GI History of Present [...] symptoms. No chest pain no trouble breathing. [facility] Medical History (Updated 11/29/22 @ 03:06 by [...] #30 tabs 09/08/22 [Rx Last Taken Unknown] bsflxh-llfbzlyr-oatdlqq 12,000-38,000-60,000 unit capsule,delayed rel (Creon) 1 cap [...] use type: does not use caffeine: No robbin/jew: Mosque seatbelt use: always ROS ROS ED Constitutional [...] 78.1 H Lymph % (Auto) 14.0 L [place] % (Auto) 6.5 Eos % (Auto) 0.6 [...] Abdominal pain Disposition Disposition: Acute Care Hospital [facility] What to do if you have Problems For any increased pain, shortness of breath, bleeding, nausea or vomiting, chestpain, or any unexpected problems, contact your Primary Care Provider. Call [facility] ([phone]) or report to the closest Emergency Room. Call 911 if necessary. 11/29/22 0306 <Electronically signed by Magno Mora MD> Cosigner Signature (if applicable): CC: Dr. Lobito Maldonado MD ~ Signed [facility] Work Phone: [phone]) [phone] Mora [facility] November 29, 2022 3:06am Note Date/Time November 28, 2022 11:3 1pm [facility] Medical Records Department [address] [place] [address] Emergency Department Summary 11/28/22 MR#: [id number] Acct: [id number] Name: BRONSON WELLER Rep #:[id number] : 1965 57 From: Magno Mora MD PCP: Dr. Lobito Maldonado MD Status:A DM IN [facility] H[facility] - GI History of Present [...] symptoms. No chest pain no trouble breathing. [facility] Medical History (Updated 11/29/22 @ 03:06 by [...] #30 tabs 09/08/22 [Rx Last Taken Unknown] yoodln-lxftjlve-qykbvxg 12,000-38,000-60,000 unit capsule,delayed rel (Creon) 1 cap [...] use type: does not use caffeine: No robbin/jew: Mosque seatbelt use: always ROS ROS ED Constitutional [...] 78.1 H Lymph % (Auto) 14.0 L [place] % (Auto) 6.5 Eos % (Auto) 0.6 [...] Impression: Pancreatitis, Nausea, Abdominal pain Disposition Disposition: [facility] What to do if you have Problems For any increased pain, shortness of breath, bleeding, nausea or vomiting, chestpain, or any unexpected problems, contact your Primary Care Provider. Call [facility] ([phone]) or report to the closest Emergency Room. Call 911 if necessary. 11/29/22 0306 <Electronically signed by Magno Mora MD> Cosigner Signature (if applicable): CC: Dr. Lobito Maldonado MD ~ Signed [facility] Work Phone: [phone]) 872-510202-20-2023 Miscellaneous Notes* Telephone Encounter - Mariella Lenz [...] you. Mariella Lenz RN documented in this encounterUc Medical Center02-13-2023 History of Present illness Narrative* Alis Older, COMPRESSOR OPERATOR ADJUSTER.TRAFFIC OFFICER - 11/07/2022 3:11 PM EST CC: Patient presents with: ED Follow-up HPI Bronson Weller is a 57 year old male who presents today hospital follow-up. Patient [facility] for acute on chronic pancreatitis. [...] Coronary artery disease 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 09/25/2011 DDD (degenerative [...] and active. DATA REVIEWED: Outside chart from [facility] admission in Care Everywhere reviewed. ASSESSMENT/PLAN: 1. [...] plan. Alis Dunne APRN.CNP documented in this encounterUc Medical Center02-01-[address] Arteaga [facility] October 26, 2022 12:34am Note Date/Time October 25, 2022 1 0:04pm [facility] Medical Records Department [address] [place] [address] Emergency Department Summary 10/25/22 MR#: [id number] Acct: [id number] Name: BRONSON WELLER Rep #:[id number] : [...] a fever. He denies constipation or diarrhea. [facility] Medical History Acute pancreatitis Alcohol abuse Anxiety [...] #30 tabs 09/08/22 [Rx Last Taken Unknown] qaqfwn-fvgsewwo-vkskhgq 12,000-38,000-60,000 unit capsule,delayed rel (Creon) 1 cap [...] use type: does not use caffeine: No robbin/jew: Mosque seatbelt use: always ROS ROS ED Constitutional [...] 73.5 H Lymph % (Auto) 18.1 L [place] % (Auto) 6.5 Eos % (Auto) 1.1 [...] Clarity Clear Urine pH 6.0 Ur Specific [place] 1.020 Urine Protein 100 H Urine Glucose (UA) 50 H Urine Ketones Negative Urine Occult Blood Negative Urine Nitrite Negative Urine Bilirubin Negative Urine Urobilinogen 1 H Ur Leukocyte Esterase Negative Urine RBC 0-5 SEEN Urine WBC 0-5 SEEN Ur Squamous Epith Cells 0-5 SEEN Urine Bacteria 0 SEEN Urine Mucus 0 SEEN Discharge Plan Triage Chief Complaint: Abd Pain ED Provider: Yahir Arteaga Dx/Rx/DC Orders Prescriptions: No Action amitriptyline [...] fluticasone propionate [Flonase Allergy Relief] 50 mcg/actuation [place],Suspension 2 spray INTRANASAL DAILY escitalopram oxalate 10 [...] your Primary Care Provider. Call [facility] ([phone]) or report to the closest Emergency Room. Call 911 if necessary. 10/26/22 0034 <Electronically signed by Yahir Arteaga DO> Cosigner Signature (if applicable): CC: Dr. Lobito Maldonado MD ~ Signed [facility] Work Phone: 1(186) 319-325201-31-2023 Miscellaneous Notes* Telephone Encounter - Souleymane Elliott APRN.CNP, DNP - 10/25/2022 9:03 AM EST Noted. Souleymane Elliott APRN.CNP, DNP * Telephone Encounter - Aury Jarrett - 03/01/2022 10:30 AM EDT Estela ward [facility] calling stating patient was admitted to [facility] on 02/27 for Pancreatitis. documented in this encounterUc Medical Center01-23-2023 Miscellaneous Notes* Telephone Encounter - Sarah Beth [...] Sarah Beth Macario Pss documented in this encounterUc Medical Center12-27-2022 Miscellaneous Notes* Telephone Encounter - Tonio Jackson [...] you. Tonio Jackson RN documented in this encounterUc Medical Center11-25-2022 History of Present illness Narrative* Felipe Rosen [...] 19, 2022 4:58 PM documented in this encounterUc Medical Center11-25-2022 History of Present illness Narrative* Lobito Maldonado MD - 08/19/2022 4:26 PM EST This note was created using NoteWriter. Subjective Bronson Weller is a 57 year [...] Epilepsy Without Status Epilepticus (Hcc) Prostate Cancer ([facility]) Preglaucoma Ocular Hypertension Optic Cupping of Both Eyes Coronary Artery Disease Involving Torres Martinez Coronary Artery of Torres Martinez Heart Without Angina Pectoris Posttraumatic Stress Disorder [...] urology. Lobito Maldonado MD documented in this encounterUc Medical Center10-05-2022 Miscellaneous Notes* Telephone Encounter - Caroline Jarrett - 06/29/2022 8:21 AM EDT Patient has [...] request. No need to notify patient. Caroline Jarrett documented in this encounterUc Medical Center09-08-2022 Miscellaneous Notes* Telephone Encounter - Cari Moss [...] you. Cari Moss RN documented in this encounterUc Medical Center09-06-2022 Miscellaneous Notes* Telephone Encounter - Gerard Polo Ma - 05/31/2022 4:26 PM EDT Patient notified, verbalized understanding. * Telephone Encounter - Gerard Pool Ma - 05/31/2022 4:25 PM EDT ----- Message from Lobito Maldonado MD sent at 05/28/2022 2:31 PM EDT ----- Diabetes needs improvement. Fasting glucose elevated. Recommend increasing Lantus to 14 units at bedtime. Rest of labs okay. documented in this encounterUc Medical Center08-29-2022 Miscellaneous Notes* Telephone Encounter - Eugene Duncan Cma - 05/23/2022 10:27 AM EDT Patient advised PSA is down. Patient agreed. Eugene Duncan Cma * Telephone Encounter - Eugene Duncan Cma - 05/23/2022 10:26 AM EDT ----- Message from Trini Williamson DO sent at 05/22/2022 5:39 PM EDT ----- PSA is down documented in this encounterUc Medical Center08-22-2022 Instructions* Patient Instructions* Lobito Maldonado MD - 05/16/2022 4:29 PM EDT FASTING BLOOD WORK. documented in this encounterUc Medical Center08-22-2022 History of Present illness Narrative* Lobito Maldonado MD - 05/16/2022 4:15 PM EDT This note was created using SQLstream. Subjective Bronson Weller is a 57 year old male. He had no new concerns. He needed refills. He had not done his fasting labs here. He was on the wait list for psychiatry care at the [facility]. He sees Dr. Williamson for urology, Dr. Burnett, [place] [facility]; Abimael Sanchez CNP for cardiology, [facility]; Dr. Leroy Santamaria for [place] [facility]; Dr. Bojorquez for ophthalmology. Review of [...] of Both Eyes Coronary Artery Disease Involving Torres Martinez Coronary Artery of Torres Martinez Heart Without Angina Pectoris Posttraumatic Stress Disorder [...] (primary diagnosis) The [place] to [place]. - Continue current medications - METFORMIN 500 [...] 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 epilepticus, unspecified epilepsy type ([facility]) - ICD9: 345.90, ICD10: G40.909 Per [facility]. 5. Hypertension, essential - ICD9: 401.9, [...] MG CAPSULE 10. 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 - ICD9: 414.01, ICD10: I25.10 Stable. - ASPIRIN 81 MG TABLET,DELAYED RELEASE 11. Posttraumatic stress disorder - ICD9: 309.81, ICD10: F43.10 Refilled. - AMITRIPTYLINE 25 MG TABLET Lobito Maldonado MD documented in this encounterUc Medical Center08-11-2022 Miscellaneous Notes* Telephone Encounter - Rhona Samayoa LPN - 05/05/2022 3:38 PM EDT Patient has [...] Please advise. Thank you. Rhona Samayoa LPN * Telephone Encounter - Toya Jarrett - 05/05/2022 2:50 PM EDT Pharmacy verified in [facility] Patient has been identified by name and [...] advise. Toya Dickerson Pss documented in this encounterUc Medical [facility] Miscellaneous Notes* Telephone Encounter - Sveta Turcios [...] patient. Sveta Turcios Pss documented in this encounterUc Medical Center06-17-2022 Miscellaneous Notes* Telephone Encounter - DINESH Jamil - 03/11/2022 1:38 PM EDT BEHAVIORAL HEALTH SOCIAL WORK CONSULT NOTE Service Date: March 11, 2022 Patient was identified by name and Patient: Bronson Rothman [place] [facility] [address] (home) [phone] (cell) PCP: Lobito Maldonado MD [address] [facility] [address] Patient identified for [facility] from: PCP (Dr Maldonado) Reason for referral: [facility] Assessment (not sure of diag,Posttraumatic stress disorder) [facility] encounter type: Telephone Encounter Assessment: SW received a consult from Dr Maldonado, for assessment not sure of diag PTSD SW reviewed Pt's chart/insurance SW contacted Pt -stated he is ok -denies current SI/HI -reported he was drinking, had a gun and called the police -was transferred to [place] and admitted to psych -not sure where he was referred to for outpt tx -stated he received a ltr from them stating they were full [facility] suggested the Counseling Kayla Jin -Pt stated he is ok -"I will contact you if I need anything" -the police took my gun so it is not in the house -inquired if Pt was still drinking -it is unclear -talked of staff at [facility] wanting to kick him out however does not know the reason why -they stated he does not qualify -states he would ok if others ([facility]) would leave him alone -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 SW offered to send ltr with contact info in case Pt reconsiders -Pt agreed -[facility] - sent the following resources in a ltr: [facility] [address] [phone] *counseling, psychiatry and case management [facility] [address] [place] [address] Crisis line [phone] Pt stated he will call if he [...] 15 minutes DINESH Jamil documented in this encounterUc Medical Center06-16-2022 History of Present illness Narrative* Lobito Maldonado MD - 03/10/2022 9:49 AM EDT This note was created using A-Gasriter. Subjective Patient presents with: Hospital F/U: pancreatitis Establish Care: from [facility] Bronson Weller is a 56 year old male. He was admitted for acute pancreatitis 02/27-03/04. He had to goback to the ER for pain medication 03/06. His abdominal pain was much better, and things were getting back to normal. He stopped alcohol consumption. He was admitted for suicidal ideation in [place] in November, and diagnosed with PTSD. He was having flashbacks of seeing a lot of from when he worked for the [employer]. He was started onamitriptyline and escitalopram. He [...] Coronary artery disease 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 09/25/2011 DDD (degenerative [...] HEALTH ADULT 2. 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- ICD9: 414.01, ICD10: [...] UR Lobito Maldonado MD documented in this encounterUc Medical Center06-15-2022 Miscellaneous Notes* Telephone Encounter - Eugene Duncan Cma - 03/09/2022 1:21 PM EDT Pharmacy called requesting the following refill. Pending Prescriptions Disp Refills TAMSULOSIN 0.4 MG CAPSULE 30 capsule 3 Sig: Take 1 capsule by mouth once daily. 30 minutes after the same meal each day. DANEILLE: No Patient last appointment: Visit date not found Patient Phone numbers: [phone] (home) Request is for script(s) to be escript to pharmacy. Eugene Duncan Cma documented in this encounterUc Medical Center06-15-2022 Miscellaneous Notes* Telephone Encounter - Eden Macario LPN - 03/09/2022 10:08 AM EDT Patient has [...] you. Eden Macario LPN documented in this encounterUc Medical Center04-21-2022 Miscellaneous Notes* Telephone Encounter - Souleymane Elliott [...] advise. Kay Renae LPN documented in this encounterUc Medical Center03-25-2022 Miscellaneous Notes* Addendum Note - Souleymane Elliott APRN.ANMOL VELASQUEZ - 12/17/2021 9:10 AM EDT Addended by: SOULEYMANE ELLIOTT on: 12/17/2021 09:10 AM Modules accepted: Orders * Telephone Encounter - Souleymane Elliott APRN.ANMOL VELASQUEZ - 12/17/2021 9:08 AM EDT Inform patient [...] advise. Kay Renae LPN documented in this encounterUc Medical Center01-11-2022 History of Past illness Narrative* Problem Noted Date Resolved Date Type 2 diabetes mellitus without retinopathy 07/202208/16/2022 Elevated PSA 12/01/2020 05/16/2022 NO SHOW 06/05/2015 03/10/2022 Right hip pain 01/19/2015 05/16/2022 DDD (degenerative disc disease), thoracic 201405/16/2022 Cervical strain 10/21/2014 03/10/2022 DDD (degenerative disc disease), cervical 201403/10/2022 documented as of this encounter (statuses as of 08/21/2022) [facility] of Past illness Narrative* Problem Noted Date Resolved Date Type 2 diabetes mellitus without retinopathy 07/202208/16/2022 Elevated PSA 12/01/2020 05/16/2022 NO SHOW 06/05/2015 03/10/2022 Right hip pain 01/19/2015 05/16/2022 DDD (degenerative disc disease), thoracic 201405/16/2022 Cervical strain 10/21/2014 03/10/2022 DDD (degenerative disc disease), cervical 201403/10/2022 documented as of this encounter (statuses as of 09/25/2022) [facility] of Past illness Narrative* Problem Noted Date Resolved Date Type 2 diabetes mellitus without retinopathy 07/202208/16/2022 Elevated PSA 12/01/2020 05/16/2022 NO SHOW 06/05/2015 03/10/2022 Right hip pain 01/19/2015 05/16/2022 DDD (degenerative disc disease), thoracic 201405/16/2022 Cervical strain 10/21/2014 03/10/2022 DDD (degenerative disc disease), cervical 201403/10/2022 documented as of this encounter (statuses as of 10/19/2022) [facility] Past illness Narrative* Problem Noted Date Resolved Date Type 2 diabetes mellitus without retinopathy 07/202208/16/2022 Elevated PSA 12/01/2020 05/16/2022 NO SHOW 06/05/2015 03/10/2022 Right hip pain 01/19/2015 05/16/2022 DDD (degenerative disc disease), thoracic 201405/16/2022 Cervical strain 10/21/2014 03/10/2022 DDD (degenerative disc disease), cervical 201403/10/2022 documented as of this encounter (statuses as of 10/25/2022) [facility] of Past illness Narrative* Problem Noted Date Resolved Date Type 2 diabetes mellitus without retinopathy 07/202208/16/2022 Elevated PSA 12/01/2020 05/16/2022 NO SHOW 06/05/2015 03/10/2022 Right hip pain 01/19/2015 05/16/2022 DDD (degenerative disc disease), thoracic 201405/16/2022 Cervical strain 10/21/2014 03/10/2022 DDD (degenerative disc disease), cervical 201403/10/2022 documented as of this encounter (statuses as of 11/08/2022) [facility] Past illness Narrative* Problem Noted Date Resolved Date Type 2 diabetes mellitus without retinopathy 07/202208/16/2022 Elevated PSA 12/01/2020 05/16/2022 NO SHOW 06/05/2015 03/10/2022 Right hip pain 01/19/2015 05/16/2022 DDD (degenerative disc disease), thoracic 201405/16/2022 Cervical strain 10/21/2014 03/10/2022 DDD (degenerative disc disease), cervical 201403/10/2022 documented as of this encounter (statuses as of 11/14/2022) [facility] Narrative* Problem Noted Date Resolved Date Type 2 diabetes mellitus without retinopathy 07/202208/16/2022 Elevated PSA 12/01/2020 05/16/2022 NO SHOW 06/05/2015 03/10/2022 Right hip pain 01/19/2015 05/16/2022 DDD (degenerative disc disease), thoracic 201405/16/2022 Cervical strain 10/21/2014 03/10/2022 DDD (degenerative disc disease), cervical 201403/10/2022 documented as of this encounter (statuses as of 12/01/2022) [facility] Narrative* Problem Noted Date Resolved Date Type 2 diabetes mellitus without retinopathy 07/202208/16/2022 Elevated PSA 12/01/2020 05/16/2022 NO SHOW 06/05/2015 03/10/2022 Right hip pain 01/19/2015 05/16/2022 DDD (degenerative disc disease), thoracic 201405/16/2022 Cervical strain 10/21/2014 03/10/2022 DDD (degenerative disc disease), cervical 201403/10/2022 documented as of this encounter (statuses as of 12/08/2022) [facility] Narrative* Problem Noted Date Resolved Date Type 2 diabetes mellitus without retinopathy 07/202208/16/2022 Elevated PSA 12/01/2020 05/16/2022 NO SHOW 06/05/2015 03/10/2022 Right hip pain 01/19/2015 05/16/2022 DDD (degenerative disc disease), thoracic 201405/16/2022 Cervical strain 10/21/2014 03/10/2022 DDD (degenerative disc disease), cervical 201403/10/2022 documented as of this encounter (statuses as of 12/09/2022) [facility] Narrative* Problem Noted Date Resolved Date Type 2 diabetes mellitus without retinopathy 07/202208/16/2022 Elevated PSA 12/01/2020 05/16/2022 NO SHOW 06/05/2015 03/10/2022 Right hip pain 01/19/2015 05/16/2022 DDD (degenerative disc disease), thoracic 201405/16/2022 Cervical strain 10/21/2014 03/10/2022 DDD (degenerative disc disease), cervical 201403/10/2022 documented as of this encounter (statuses as of 12/13/2022) [facility] Narrative* Problem Noted Date Resolved Date Type 2 diabetes mellitus without retinopathy 07/202208/16/2022 Elevated PSA 12/01/2020 05/16/2022 NO SHOW 06/05/2015 03/10/2022 Right hip pain 01/19/2015 05/16/2022 DDD (degenerative disc disease), thoracic 201405/16/2022 Cervical strain 10/21/2014 03/10/2022 DDD (degenerative disc disease), cervical 201403/10/2022 documented as of this encounter (statuses as of 12/15/2022) [facility] Narrative* Problem Noted Date Resolved Date Type 2 diabetes mellitus without retinopathy 07/202208/16/2022 Elevated PSA 12/01/2020 05/16/2022 NO SHOW 06/05/2015 03/10/2022 Right hip pain 01/19/2015 05/16/2022 DDD (degenerative disc disease), thoracic 201405/16/2022 Cervical strain 10/21/2014 03/10/2022 DDD (degenerative disc disease), cervical 201403/10/2022 documented as of this encounter (statuses as of 12/16/2022) [facility] Narrative* Problem Noted Date Resolved Date Type 2 diabetes mellitus without retinopathy 07/202208/16/2022 Elevated PSA 12/01/2020 05/16/2022 NO SHOW 06/05/2015 03/10/2022 Right hip pain 01/19/2015 05/16/2022 DDD (degenerative disc disease), thoracic 201405/16/2022 Cervical strain 10/21/2014 03/10/2022 DDD (degenerative disc disease), cervical 201403/10/2022 documented as of this encounter (statuses as of 12/20/2022) [facility] Narrative* Problem Noted Date Resolved Date Type 2 diabetes mellitus without retinopathy 07/202208/16/2022 Elevated PSA 12/01/2020 05/16/2022 NO SHOW 06/05/2015 03/10/2022 Right hip pain 01/19/2015 05/16/2022 DDD (degenerative disc disease), thoracic 201405/16/2022 Cervical strain 10/21/2014 03/10/2022 DDD (degenerative disc disease), cervical 201403/10/2022 documented as of this encounter (statuses as of 12/29/2022) [facility] Narrative* Problem Noted Date Resolved Date Type 2 diabetes mellitus without retinopathy 07/202208/16/2022 Elevated PSA 12/01/2020 05/16/2022 NO SHOW 06/05/2015 03/10/2022 Right hip pain 01/19/2015 05/16/2022 DDD (degenerative disc disease), thoracic 201405/16/2022 Cervical strain 10/21/2014 03/10/2022 DDD (degenerative disc disease), cervical 201403/10/2022 documented as of this encounter (statuses as of 01/17/2023) [facility] Narrative* Problem Noted Date Resolved Date Type 2 diabetes mellitus without retinopathy 07/202208/16/2022 Elevated PSA 12/01/2020 05/16/2022 NO SHOW 06/05/2015 03/10/2022 Right hip pain 01/19/2015 05/16/2022 DDD (degenerative disc disease), thoracic 201405/16/2022 Cervical strain 10/21/2014 03/10/2022 DDD (degenerative disc disease), cervical 201403/10/2022 documented as of this encounter (statuses as of 01/25/2023) [facility] Narr[facility]* Problem Noted Date Resolved Date Type 2 diabetes mellitus without retinopathy 07/202208/16/2022 Elevated PSA 12/01/2020 05/16/2022 NO SHOW 06/05/2015 03/10/2022 Right hip pain 01/19/2015 05/16/2022 DDD (degenerative disc disease), thoracic 201405/16/2022 Cervical strain 10/21/2014 03/10/2022 DDD (degenerative disc disease), cervical 201403/10/2022 documented as of this encounter (statuses as of 02/06/2023) [facility] Narrative* Problem Noted Date Resolved Date Type 2 diabetes mellitus without retinopathy 07/202208/16/2022 Elevated PSA 12/01/2020 05/16/2022 NO SHOW 06/05/2015 03/10/2022 Right hip pain 01/19/2015 05/16/2022 DDD (degenerative disc disease), thoracic 201405/16/2022 Cervical strain 10/21/2014 03/10/2022 DDD (degenerative disc disease), cervical 201403/10/2022 documented as of this encounter (statuses as of 02/21/2023) [facility] Narrative* Problem Noted Date Diagnosed Date Resolved Date Type 2 diabetes mellitus without retinopathy 08/16/2022 Elevated PSA 12/01/2020 05/16/2022 NO SHOW 06/05/2015 03/10/2022 Right hip pain 01/19/2015 05/16/2022 DDD (degenerative disc disease), thoracic 10/21/2014 05/16/2022 Cervical strain 10/21/2014 03/10/2022 DDD (degenerative disc disease), cervical 10/21/2014 03/10/2022 documented as of this encounter (statuses as of 05/02/2023) [facility] Narrative* Problem Noted Date Diagnosed Date Resolved Date Type 2 diabetes mellitus without retinopathy 08/16/2022 Elevated PSA 12/01/2020 05/16/2022 NO SHOW 06/05/2015 03/10/2022 Right hip pain 01/19/2015 05/16/2022 DDD (degenerative disc disease), thoracic 10/21/2014 05/16/2022 Cervical strain 10/21/2014 03/10/2022 DDD (degenerative disc disease), cervical 10/21/2014 03/10/2022 documented as of this encounter (statuses as of 05/19/2023) [facility] Narr[facility]* Problem Noted Date Diagnosed Date Resolved Date Type 2 diabetes mellitus without retinopathy 08/16/2022 Elevated PSA 12/01/2020 05/16/2022 NO SHOW 06/05/2015 03/10/2022 Right hip pain 01/19/2015 05/16/2022 DDD (degenerative disc disease), thoracic 10/21/2014 05/16/2022 Cervical strain 10/21/2014 03/10/2022 DDD (degenerative disc disease), cervical 10/21/2014 03/10/2022 documented as of this encounter (statuses as of 06/12/2023) [facility]arr[facility]* Problem Noted Date Diagnosed Date Resolved Date Type 2 diabetes mellitus without retinopathy 2 08/16/2022 Elevated PSA 12/01/2020 05/16/2022 NO SHOW 06/05/2015 03/10/2022 Right hip pain 01/19/2015 05/16/2022 DDD (degenerative disc disease), thoracic 10/21/2014 05/16/2022 Cervical strain 10/21/2014 03/10/2022 DDD (degenerative disc disease), cervical 10/21/2014 03/10/2022 documented as of this encounter (statuses as of 06/16/2023) [facility]arr[facility]* Problem Noted Date Diagnosed Date Resolved Date Type 2 diabetes mellitus without retinopathy 2 08/16/2022 Elevated PSA 12/01/2020 05/16/2022 NO SHOW 06/05/2015 03/10/2022 Right hip pain 01/19/2015 05/16/2022 DDD (degenerative disc disease), thoracic 10/21/2014 05/16/2022 Cervical strain 10/21/2014 03/10/2022 DDD (degenerative disc disease), cervical 10/21/2014 03/10/2022 documented as of this encounter (statuses as of 08/22/2023) [facility] Narrative* Problem Noted Date Diagnosed Date Resolved Date Type 2 diabetes mellitus without retinopathy 2 08/16/2022 Elevated PSA 12/01/2020 05/16/2022 NO SHOW 06/05/2015 03/10/2022 Right hip pain 01/19/2015 05/16/2022 DDD (degenerative disc disease), thoracic 10/21/2014 05/16/2022 Cervical strain 10/21/2014 03/10/2022 DDD (degenerative disc disease), cervical 10/21/2014 03/10/2022 documented as of this encounter (statuses as of 08/30/2023) [facility] Narrative* Problem Noted Date Diagnosed Date Resolved Date Type 2 diabetes mellitus without retinopathy 2 08/16/2022 Elevated PSA 12/01/2020 05/16/2022 NO SHOW 06/05/2015 03/10/2022 Right hip pain 01/19/2015 05/16/2022 DDD (degenerative disc disease), thoracic 10/21/2014 05/16/2022 Cervical strain 10/21/2014 03/10/2022 DDD (degenerative disc disease), cervical 10/21/2014 03/10/2022 documented as of this encounter (statuses as of 11/16/2023) [facility] Narrative* Problem Noted Date Diagnosed Date Resolved Date Type 2 diabetes mellitus without retinopathy 2 08/16/2022 Elevated PSA 12/01/2020 05/16/2022 NO SHOW 06/05/2015 03/10/2022 Right hip pain 01/19/2015 05/16/2022 DDD (degenerative disc disease), thoracic 10/21/2014 05/16/2022 Cervical strain 10/21/2014 03/10/2022 DDD (degenerative disc disease), cervical 10/21/2014 03/10/2022 documented as of this encounter (statuses as of 11/27/2023) [facility] Narrative* Problem Noted Date Diagnosed Date Resolved Date Type 2 diabetes mellitus without retinopathy 2 08/16/2022 Elevated PSA 12/01/2020 05/16/2022 NO SHOW 06/05/2015 03/10/2022 Right hip pain 01/19/2015 05/16/2022 DDD (degenerative disc disease), thoracic 10/21/2014 05/16/2022 Cervical strain 10/21/2014 03/10/2022 DDD (degenerative disc disease), cervical 10/21/2014 03/10/2022 documented as of this encounter (statuses as of 01/10/2024) [facility] NoteHNO ID: [id number] Author: Trini Williamson, DO Service: ? Author Type: Physician Type: Progress Notes Filed: 07/06/2021 4:05 PM Note Text: ?? [facility] LOCATION: [address] [place] [address] ESTABLISHED PATIENT PATIENT INFO: Bronson Weller 56 [...] 61.2 Lymph% (%) Date Value 05/21/2021 28.6 [place]% (%) Date Value 05/21/2021 8.0 Eosin% (%) Date Value 05/21/2021 1.7 Baso% (%) Date Value 05/21/2021 0.5 Abs Neut (ANC) (k/uL) Date Value 05/21/2021 6.76 Abs [place] (k/uL) Date Value 05/21/2021 0.89 (H) Abs [...] for 90 days. naproxe (more content not included)...[facility]10-08-2021 NoteHNO ID: [id number] Author: RT Noé(R) Service: Radiology Author Type: Accredited Farm Manager Type: Progress Notes Filed: 07/02/2021 9:30 AM [...] Weller DATE: July 02, 2021 TIME: 9:29 [facility]03-09-2021 History of Past illness Narrative* Problem Noted Date Resolved Date Elevated PSA 12/01/2020 05/16/2022 NO SHOW 06/05/2015 03/10/2022 Right hip pain 01/19/2015 05/16/2022 DDD (degenerative disc disease), thoracic 201405/16/2022 Cervical strain 10/21/2014 03/10/2022 DDD (degenerative disc disease), cervical 201403/10/2022 documented as of this encounter (statuses as of 05/16/2022) [facility] Narrative* Problem Noted Date Resolved Date Elevated PSA 12/01/2020 05/16/2022 NO SHOW 06/05/2015 03/10/2022 Right hip pain 01/19/2015 05/16/2022 DDD (degenerative disc disease), thoracic 201405/16/2022 Cervical strain 10/21/2014 03/10/2022 DDD (degenerative disc disease), cervical 201403/10/2022 documented as of this encounter (statuses as of 05/23/2022) [facility] Narrative* Problem Noted Date Resolved Date Elevated PSA 12/01/2020 05/16/2022 NO SHOW 06/05/2015 03/10/2022 Right hip pain 01/19/2015 05/16/2022 DDD (degenerative disc disease), thoracic 201405/16/2022 Cervical strain 10/21/2014 03/10/2022 DDD (degenerative disc disease), cervical 201403/10/2022 documented as of this encounter (statuses as of 05/31/2022) [facility] Narrative* Problem Noted Date Resolved Date Elevated PSA 12/01/2020 05/16/2022 NO SHOW 06/05/2015 03/10/2022 Right hip pain 01/19/2015 05/16/2022 DDD (degenerative disc disease), thoracic 201405/16/2022 Cervical strain 10/21/2014 03/10/2022 DDD (degenerative disc disease), cervical 201403/10/2022 documented as of this encounter (statuses as of 06/03/2022) [facility] Narrative* Problem Noted Date Resolved Date Elevated PSA 12/01/2020 05/16/2022 NO SHOW 06/05/2015 03/10/2022 Right hip pain 01/19/2015 05/16/2022 DDD (degenerative disc disease), thoracic 201405/16/2022 Cervical strain 10/21/2014 03/10/2022 DDD (degenerative disc disease), cervical 201403/10/2022 documented as of this encounter (statuses as of 06/29/2022) [facility] Narr[facility]* Problem Noted Date Resolved Date NO SHOW 06/05/2015 03/10/2022 Cervical strain 10/21/2014 03/10/2022 DDD (degenerative disc disease), cervical 201403/10/2022 documented as of this encounter (statuses as of 03/10/2022) [facility]* Problem Noted Date Resolved Date NO SHOW 06/05/2015 03/10/2022 Cervical strain 10/21/2014 03/10/2022 DDD (degenerative disc disease), cervical 201403/10/2022 documented as of this encounter (statuses as of 03/11/2022) [facility] Narr[facility]* Problem Noted Date Resolved Date NO SHOW 06/05/2015 03/10/2022 Cervical strain 10/21/2014 03/10/2022 DDD (degenerative disc disease), cervical 201403/10/2022 documented as of this encounter (statuses as of 04/08/2022) [facility]arrative* Problem Noted Date Resolved Date NO SHOW 06/05/2015 03/10/2022 Cervical strain 10/21/2014 03/10/2022 DDD (degenerative disc disease), cervical 201403/10/2022 documented as of this encounter (statuses as of 05/06/2022) [facility] Author Delicia Nunez [facility] January 08, 2024 12:02pm Note Date/Time January 08, 2024 12: 02pm [facility] Medical Records Department [address] [place] [address] Counseling Note - Pharmacy 01/08/24 1202 MR#: [id number] Acct: [id number] Name: BRONSON WELLER Rep #:[id number] : 1965 58 From: Delicia Nunez PCP: Dr. Lobito Maldonado MD Status:A DM IN Y Location: [place] [address] Pharmacy [facility] has performed discharge medication reconciliation [...] Signature (if applicable): Date CC: ~ Signed [facility] Work Phone: Discharge summary Author Magno Mora [facility] April 30, 2023 6:08am Note Date/Time April 30, 2023 5:0 8am [facility] Medical Records Department [address] [place] [address] Emergency Department Summary 04/30/23 MR#: [id number] Acct: [id number] Name: BRONSON WELLER Rep #:[id number] : [...] fevers or chills. Only surgeries [facility]cyst[facility] Medical History Alcohol abuse Anxiety and [...] use type: does not use caffeine: No robbin/jew: Mosque seatbelt use: always ROS ROS ED ROS [...] 73.6 H Lymph % (Auto) 17.5 L [place] % (Auto) 7.3 Eos % (Auto) 0.6 [...] your Primary Care Provider. Call [facility] ([phone]) or report to the closest Emergency Room. Call 911 if necessary. 04/30/23 0608 <Electronically signed by Magno Mora MD> Cosigner Signature (if applicable): CC: Dr. Lobito Maldonado MD ~ Signed [facility] Work Phone: Evaluation + Plan note No data available for this section [facility] Evaluation note* Diagnosis 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 epilepticus, unspecified epilepsy type (HCC) [facility] 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 epilepticus, unspecified epilepsy type (HCC) documented in this encounter [facility] note* Diagnosis Onset Date Resolution Status Pancreatitis resolved Essential (primary) hypertension chronic Hyperlipidemia chronic Acute pancreatitis resolved [facility] Work Phone: Evaluation note* Diagnosis Onset Date Resolution Status Pancreatitis resolved Essential (primary) hypertension chronic Hyperlipidemia chronic Acute pancreatitis resolved Hypophosphatemia resolved Leukocytosis resolved [facility] Work Phone: Evaluation note* Diagnosis Type 2 diabetes mellitus without complication, with long-term current use of insulin (HCC) Seasonal allergic rhinitis due to pollen Mixed hyperlipidemia 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 epilepticus, unspecified epilepsy type (HCC) Hypertension, essential Unspecified essential hypertension GERD without esophagitis Esophageal reflux Vitamin D deficiency Unspecified vitamin D deficiency [facility] Diagnosis Posttraumatic stress disorder- Primary 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 Mixed hyperlipidemia Type 2 diabetes mellitus without complication, with long-term current use of insulin (HCC) [facility] Onset Date Resolution Status Pancreatitis resolved Essential (primary) hypertension chronic Hyperlipidemia chronic Acute pancreatitis resolved Hypophosphatemia resolved Leukocytosis resolved Fatty liver acute Pancreatitis acute [facility] Work Phone: Evaluation note* Diagnosis 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 epilepticus, unspecified epilepsy type (HCC) Hypertension, essential Unspecified essential hypertension documented in this encounter [facility] note* Diagnosis Onset Date Resolution Status Essential (primary) hypertension chronic Hyperlipidemia chronic Acute pancreatitis resolved Hypophosphatemia resolved Leukocytosis resolved Fatty liver acute Pancreatitis acute [facility] Work Phone: Evaluation note* Diagnosis Type [...] involving urinary system 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 Posttraumatic stress disorder documented in this encounter [facility] note* Diagnosis Posttraumatic stress disorder documented in this encounter [facility] note* Diagnosis 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 epilepticus, unspecified epilepsy type (HCC) Hypertension, essential Unspecified essential hypertension documented in this encounter [facility] note* Diagnosis Onset Date Resolution Status Fatty liver acute Pancreatitis acute Abdominal pain acute [facility] Work Phone: Evaluation note* Diagnosis Onset Date Resolution Status Fatty liver acute Pancreatitis acute Abdominal pain acute Acute pancreatitis acute [facility] Work Phone: Evaluation note* Diagnosis Onset Date Resolution Status Fatty liver acute Pancreatitis acute Abdominal pain acute Acute pancreatitis acute Diabetes acute GERD (gastroesophageal reflux disease) acute Hyponatremia acute Pancreatitis acute Essential (primary) hypertension chronic [facility] Work Phone: Evaluation note* Diagnosis Onset Date Resolution Status Abdominal pain acute Acute pancreatitis acute Diabetes acute GERD (gastroesophageal reflux disease) acute Hyponatremia acute Pancreatitis acute Essential (primary) hypertension chronic Epilepsy chronic Polyneuropathy [facility] Work Phone: Evaluation note* Diagnosis Low [...] neoplasm of prostate [facility]* Diagnosis Onset Date Resolution Status Abdominal pain acute Acute pancreatitis acute Diabetes acute GERD (gastroesophageal reflux disease) acute Hyponatremia acute Pancreatitis acute Essential (primary) hypertension chronic Epilepsy chronic Polyneuropathy chronic Acute pancreatitis acute Diabetes acute Hyperlipidemia chronic [facility] Work Phone: Evaluation note* Diagnosis Hypertension, essential Unspecified essential hypertension 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 epilepticus, unspecified epilepsy type (HCC) [facility]* Diagnosis Onset Date Resolution Status Abdominal pain acute GERD (gastroesophageal reflux disease) acute Hyponatremia acute Pancreatitis acute Essential (primary) hypertension chronic Acute pancreatitis resolved Epilepsy chronic Polyneuropathy chronic Acute pancreatitis resolved Acute recurrent pancreatitis acute [facility] Work Phone: Evaluation note* Diagnosis Alcohol-induced chronic pancreatitis (HCC)- Primary Chronic pancreatitis [facility] Diagnosis Onset Date Resolution Status GERD (gastroesophageal reflux disease) acute Hyponatremia acute Pancreatitis acute Essential (primary) hypertension chronic Acute pancreatitis resolved Epilepsy chronic Polyneuropathy chronic Acute pancreatitis resolved [facility] Work Phone: Evaluation note* Diagnosis Seasonal allergic rhinitis due to pollen Posttraumatic stress disorder [facility]* Diagnosis Onset Date Resolution Status Epilepsy chronic Polyneuropathy chronic Acute pancreatitis resolved Abdominal pain acute Nausea acute Pancreatitis acute [facility] Work Phone: Evaluation note* Diagnosis Alcohol-induced chronic pancreatitis (HCC)- Primary Chronic pancreatitis documented in this encounter [facility] note* Diagnosis Onset Date Resolution Status Epilepsy chronic Polyneuropathy chronic Acute pancreatitis resolved Abdominal pain acute Acute pancreatitis acute Nausea acute Pancreatitis acute [facility] Work Phone: Evaluation note* Diagnosis Alcohol-induced chronic pancreatitis (HCC)- Primary Chronic pancreatitis Type 2 diabetes mellitus without complication, with long-term current use of insulin (HCC) Hypertension, essential Unspecified essential hypertension Cervical spondylosis Cervical spondylosis without myelopathy Nonintractable generalized 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 (HCC) Fatty liver due to alcoholism [facility] Diagnosis Hypertension, essential Unspecified essential hypertension 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 epilepticus, unspecified epilepsy type (HCC) [facility]* Diagnosis Onset Date Resolution Status Acute pancreatitis resolved Abdominal pain resolved Acute pancreatitis resolved Nausea resolved Pancreatitis resolved [facility] Work Phone: Evaluation note* Diagnosis Sore throat- Primary Acute pharyngitis URI, acute Acute upper respiratory infections of unspecified site [facility] Diagnosis Onset Date Resolution Status Acute pancreatitis resolved Pancreatitis chronic Abdominal pain resolved Acute pancreatitis resolved Nausea resolved Heart palpitations acute Pancreatitis [facility] Work Phone: Evaluation note* Diagnosis Onset Date Resolution Status Pancreatitis chronic Abdominal pain resolved Acute pancreatitis resolved Nausea resolved Heart palpitations acute Pancreatitis [facility] Work Phone: Evaluation note* Diagnosis Nausea- Primary Nausea alone Hypertension, essential Unspecified essential hypertension 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 epilepticus, unspecified epilepsy type (HCC) Alcohol-induced chronic pancreatitis (HCC) Chronic pancreatitis Dizziness Dizziness and giddiness Type 2 diabetes mellitus without complication, with long-term current use of insulin (HCC) [facility]* Diagnosis Onset Date Resolution Status Pancreatitis chronic Abdominal pain resolved Acute pancreatitis resolved Nausea resolved Heart palpitations acute Pancreatitis chronic Epilepsy chronic Polyneuropathy [facility] Work Phone: Evaluation note* Diagnosis Type [...] eyes Preglaucoma, unspecified documented in this encounter [facility] note* Diagnosis Onset Date Resolution Status Epilepsy chronic Polyneuropathy chronic Pancreatitis [facility] Work Phone: Evaluation note* Diagnosis Posttraumatic stress disorder Seasonal allergic rhinitis due to pollen [facility]* Diagnosis Type 2 diabetes mellitus without complication, with long-term current use of insulin (HCC)- Primary Dermatophytosis, nail Dermatophytosis of nail Pain in toe of left foot Pain in limb Pain in toe of right foot Pain in limb Diminished pulses in lower extremity Other symptoms involving cardiovascular system documented in this encounter [facility] note* Diagnosis Type 2 diabetes mellitus without complication, with long-term current use of insulin ([facility])- Primary Encounter for immunization Need for other specified prophylactic vaccination against single bacterial disease [facility]* Diagnosis Onset Date Resolution Status Pancreatitis [facility] Work Phone: Evaluation note* Diagnosis Hypertension, essential Unspecified essential hypertension documented in this encounter [facility] note* Diagnosis 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 epilepticus, unspecified epilepsy type ([facility]) [facility] Diagnosis Onset Date Resolution Status Pancreatitis chronic Hyperammonemia acute Epilepsy chronic Polyneuropathy [facility] Work Phone: Evaluation note* Diagnosis Type 2 diabetes mellitus without complication, with long-term current use of insulin ([facility])- Primary documented in this encounter [facility] note* Diagnosis Encounter for immunization- Primary Need for other specified prophylactic vaccination against single bacterial disease documented in this encounter [facility] note* Diagnosis Onset Date Resolution Status Pancreatitis chronic Hyperammonemia acute Epilepsy chronic Polyneuropathy chronic Alcohol abuse acute Hyponatremia acute Acute on chronic pancreatitis chronic Essential (primary) hypertension [facility] Work Phone: Evaluation note* Diagnosis Type [...] astigmatism, bilateral Presbyopia documented in this encounter [facility] note* Diagnosis Medicare annual wellness visit, subsequent- Primary Routine general medical examination at a health care facility Shortness of breath Tachycardia Tachycardia, unspecified Hypertension, essential Unspecified essential hypertension Alcohol-induced chronic pancreatitis (HCC) Chronic pancreatitis Type 2 diabetes mellitus without complication, with long-term current use of insulin (HCC) Mixed hyperlipidemia Prostate cancer (HCC) Malignant neoplasm of prostate Nonintractable generalized 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 (HCC) [facility] Diagnosis Hypertension, essential Unspecified essential hypertension Posttraumatic stress disorder Seasonal allergic rhinitis due to pollen [facility] Diagnosis 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 epilepticus, unspecified epilepsy type (HCC) [facility] Diagnosis 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 epilepticus, unspecified epilepsy type (HCC) [facility] Diagnosis Type 2 diabetes mellitus without complication, with long-term current use of insulin (HCC) [facility] Diagnosis Type 2 diabetes mellitus without complication, with long-term current use of insulin (HCC) [facility] Diagnosis Need for vaccination- Primary Need for prophylactic vaccination and inoculation against unspecified single disease [facility] Diagnosis GERD without esophagitis Esophageal reflux [facility] Diagnosis Shortness of breath [facility] Diagnosis Pneumonia of left lower lobe due to infectious organism [facility] Diagnosis Left hip pain Pain in joint, pelvic region and thigh [facility] Diagnosis 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)- Primary Hypertension, essential Unspecified essential hypertension Bronchitis Bronchitis, not specified as acute or chronic [facility] Diagnosis Posttraumatic stress disorder Seasonal allergic rhinitis due to pollen Hypertension, essential Unspecified essential hypertension [facility] Diagnosis Primary open angle glaucoma (POAG) of both eyes, mild stage- Primary Optic cupping of both eyes Type 2 diabetes mellitus without retinopathy (HCC) Type II or unspecified type diabetes mellitus without mention of complication, not stated as uncontrolled Combined form of age-related cataract, both eyes Myopia, bilateral Myopia Regular astigmatism, bilateral Presbyopia [facility] Diagnosis Bronchitis Bronchitis, not specified as acute or chronic [facility] Diagnosis Hypomagnesemia- Primary Disorders of magnesium metabolism Lower urinary tract symptoms (LUTS) Other symptoms involving urinary system [facility] Diagnosis Posttraumatic stress disorder Seasonal allergic rhinitis due to pollen [facility] Diagnosis Type 2 diabetes mellitus without complication, with long-term current use of insulin (HCC)- Primary Hypertension, essential Unspecified essential hypertension Mixed hyperlipidemia 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 Prostate cancer (HCC) Malignant neoplasm of prostate Nonintractable generalized 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 (HCC) Hypomagnesemia 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) Chronic pancreatitis [facility] Diagnosis Type 2 diabetes mellitus without complication, with long-term current use of insulin (HCC) [facility] Diagnosis Posttraumatic stress disorder Seasonal allergic rhinitis due to pollen GERD without esophagitis Esophageal reflux [facility] Diagnosis Posttraumatic stress disorder GERD without esophagitis Esophageal reflux Seasonal allergic rhinitis due to pollen Lower urinary tract symptoms (LUTS) Other symptoms involving urinary system Hypomagnesemia Disorders of magnesium metabolism [facility] Diagnosis Posttraumatic stress disorder GERD without esophagitis Esophageal reflux Seasonal allergic rhinitis due to pollen Lower urinary tract symptoms (LUTS) Other symptoms involving urinary system Hypomagnesemia Disorders of magnesium metabolism [facility] Diagnosis Type 2 diabetes mellitus without complication, with long-term current use of insulin (HCC) [facility] Diagnosis Acute pancreatitis without infection or necrosis, unspecified pancreatitis type (HCC)- Primary Constipation, unspecified constipation type Hemorrhoids, unspecified hemorrhoid type [facility] Dr. Carr [facility] October 26, 2022 1:22am Note Date/Time October 26, 2022 1 2:44am [facility] Medical Records Department [address] [place] [address] H&P Exam - Hospitalist 10/26/22 0043 MR#: [id number] Acct: [id number] Name: BRONSON WELLER Rep #:[id number] : 1965 57 From: Mia Carr MD PCP: Dr. Lobito Maldonado MD Status:A DM [place] Location: [address] HPI - General General Date of [...] #30 tabs 09/08/22 [Rx Last Taken Unknown] [id number] 12,000-38,000-60,000 unit capsule,delayed rel (Creon) 1 cap [...] use type: does not use caffeine: No robbin/jew: Mosque seatbelt use: always ROS ROS Narrative Constitutional: [...] 73.5 H, Lymph % (Auto) 18.1 L, [place] % (Auto) 6.5, Eos % (Auto) 1.1, [...] Clarity Clear, Urine pH 6.0, Ur Specific [place] 1.020, Urine Protein 100 H, Urine Glucose [...] ambulation recommended Charges/Coding Visit Charges Inpatient E&M: 23486 Subs Hosp L2 10/26/22 0122 <Electronically signed by Mia Carr MD> Cosigner Signature (if applicable): CC: Dr. Mia Carr MD; Dr. Lobito Maldonado MD~ Signed [facility] Work Phone: History and physical note Author Dr. Pedraza [facility] November 29, 2022 3:28am Note Date/Time November 29, 2022 2:44 am [facility] Medical Records Department [address] [place] [address] History & Physical Exam 11/29/22 0239 MR#: [id number] Acct: [id number] Name: BRONSON WELLER Rep #:[id number] : 1965 57 From: Mayelin Pedraza MD PCP: Dr. Lobito Maldonado MD Status:A DM IN Location: MS3 [id number] HPI - General General Date of Admission: [...] persistent alcohol abuse currently who re-[facility] on 11/29[facility]22 with history of recurrent [...] well as 1 L normal saline bolus. [facility] Medical History (Updated 11/29/22 @ 03:06 [...] #30 tabs 09/08/22 [Rx Last Taken Unknown] [id number] 12,000-38,000-60,000 unit capsule,delayed rel (Creon) 1 cap [...] use type: does not use caffeine: No robbin/jew: Mosque seatbelt use: always ROS ROS Narrative Admission [...] 78.1 H, Lymph % (Auto) 14.0 L, [place] % (Auto) 6.5, Eos % (Auto) 0.6, [...] 0.80, AST 13 L, ALT 20, Alkaline [id number], Total Protein 8.3 H, Albumin 4.3, Globulin [...] alcohol abuse currently who re-presents to the [facility] ED on 11/29/22 with history of recurrent [...] Patient does not have healthcare power of estate planning attorney nor livingwill in place but if he did need someone to make medical decisions for him if hecould not it would be his sister. Full Code status. Admission Evaluation Time spent evaluating chart, patient history, patient evaluation, care planning and discussion with specialists: 60 minutes. Charges/Coding Visit Charges Inpatient E&M: 55544 Init Hosp L2 11/29/22 0328 <Electronically signed by Mayelin Pedraza MD> Cosigner Signature (if applicable): CC: Dr. Mayelin Pedraza MD; Dr. Lobito Maldonado MD~ Signed [facility] Work Phone: Hospital Discharge instructions Additional Instructions Follow-up with Dr. Friend. Return if feeling worse. Plenty of fluids and rest. [facility] Work Phone: Hospital Discharge instructions Additional Instructions [...] care physician for further outpatient evaluation and management.[facility] Work Phone: Hospital Discharge instructions No data available for this section [facility] Progress note No data available for this section [facility] Reason for referral (narrative)* Diagnostic Procedure Only (Routine) - Closed Specialty Diagnoses / Procedures Referred By Susie corrales Referred To Contact XR IMAGING Diagnoses Left hip pain Procedures XR HIP GENERAL 3V PELV/AP/LAT LEFT RADEX HIP UNILATERAL WITH PELVIS 2-3 VIEWS Lobito Maldonado MD [address] [place] [address] Xr Imaging Referral ID Status Reason Start Date Expiration Date V isits Requested Visits Authorized [id number] Closed Auto-Generate d Referral 08/19/2022 09/18/2023 1 1 [facility] for referral (narrative)* Outpatient Procedure (Routine) - Authorized Specialty Diagnoses / Procedures Referred By Susie corrales Referred To Contact [facility] Diagnoses Type 2 diabetes mellitus without complication, with long-term current use of insulin (HCC) Diminished pulses in lower extremity Procedures PVR ANK PRESS KRYSTA [facility] NON-INVAS PHYSIOLOGIC STD EXTREMITY ART 2 LEVEL Danilo Benitez [address] [place] [address] [place] [address] [place] [address] Referral ID Status Reason Start Date Expiration Date Visits Requested Visits Authorized [id number] Authorized Auto-Generat ed Referral 05/19/2023 05/18/2024 1 1 [facility] for referral (narrative)* Outpatient Procedure (Routine) - Additional Clinical Info Needed Specialty Diagnoses / Procedures Referred By Contac t Referred To Contact [facility] Diagnoses Tachycardia Shortness of breath Procedures ECHO ECHO TTHRC R-T 2D W/WOM-MODE COMPL SPEC&COLR D Alis Chua APRN.TRAFFIC OFFICER [address] [place] [address] [address] Referral ID Status Reason Start Date Expiration Date Visits Requested Visits Authorized [id number] Additional Clinical Info Needed Auto-Generat ed Referral 02/05/2024 02/04/2025 1 1 * Outpatient Procedure (Routine) - Pending Review Specialty Diagnoses / Procedures Referred By Contac t Referred To Contact [facility] Diagnoses Tachycardia Procedures ECG COMPLETE ECG ROUTINE ECG W/LEAST 12 LDS W/I&R Alis Chua COMPRESSOR OPERATOR ADJUSTER.TRAFFIC OFFICER [address] [place] [address] [address] Referral ID Status Reason Start Date Expiration Date Visits Requested Visits Authorized [id number] Pending Review Auto-Generat ed Referral 02/05/2024 02/04/2025 1 1 [facility] for referral (narrative)* Diagnostic Procedure Only (Routine) - Closed Specialty Diagnoses / Procedures Referred By Contac t Referred To Contact XR IMAGING Diagnoses Left hip pain Procedures XR HIP GENERAL 3V PELV/AP/LAT LEFT RADEX HIP UNILATERAL WITH PELVIS 2-3 VIEWS Lobito Maldonado MD [address] [place] [address] [place] [address] Referral ID Status Reason Start Date Expiration Date V isits Requested Visits Authorized [id number] Closed Auto-Generate d Referral 08/19/2022 09/18/2023 1 1 [facility] for referral (narrative)No reason for referral [facility] Work [facility]: Reason for visit Narrative* Diagnostic Procedure Only (Routine) - Closed Specialty Diagnoses / Procedures Referred By Contac t Referred To Contact XR IMAGING Diagnoses Left hip pain Procedures XR HIP GENERAL 3V PELV/AP/LAT LEFT RADEX HIP UNILATERAL WITH PELVIS 2-3 VIEWS Lobito Maldonado MD [address] [place] [address] [place] [address] Referral ID Status Reason Start Date Expiration Date V isits Requested Visits Authorized [id number] Closed Auto-Generate d Referral 08/19/2022 09/18/2023 1 1 [facility] Summary Purpose Family History No Family History Records Found Relationship Condition Age at Onset Recorded Date/T quinn mother Cardiac disease Unknown sister Cerebral aneurysm Unknown Relationship Condition Age at Onset Recorded Date/T quinn mother Cardiac disease Unknown sister Cerebral aneurysm Unknown father Diabetes mellitus Unknown Kidney disorder Unknown Anxiety and depression Unknown Advance Directives No Advanced Directives Records Found Advance Directive Response Recorded Date/ Time Living Will No February 27, 2022 1 2:23pm Power of Car Body Designer No February 27, 2022 12:23pm Advance Directive Response Recorded Date/ Time Living Will Yes February 27, 2022 4 :16pm Power of Car Body Designer No February 27, 2022 4:16pm Advance Directive Response Recorded Date/ Time Living Will No March 06, 2022 10:23pm Power of Car Body Designer No March 06 10:23pm Advance Directive Response Recorded Date/ Time Living Will No July 04 11:34am Power of Car Body Designer No July 04, 2022 11:34am Advance Directive Response Recorded Date/ Time Living Will No July 13 1:21am Power of Car Body Designer No July 13, 2022 1:21am Advance Directive Response Recorded Date/ Time Living Will Yes July 13 6:07am Power of Car Body Designer No July 13, 2022 6:07am Advance Directive Response Recorded Date/ Time Living Will Yes July 13 5:07am Power of Car Body Designer No July 13, 2022 5:07am Advance Directive Response Recorded Date/ Time Living Will No September 06 2 022 8:50am Power of Car Body Designer No September 06, 2022 8:50am Advance Directive Response Recorded Date/ Time Living Will No September 06 2 022 1:12pm Power of Car Body Designer No September 06, 2022 1:12pm Advance Directive Response Recorded Date/ Time Living Will No October 25 9:55pm Power of Car Body Designer No October 25, 2022 9:55pm Advance Directive Response Recorded Date/ Time Living Will No November 09, 2 023 4:34pm Power of Car Body Designer No November 09, 2022 4:34pm Advance Directive Response Recorded Date/ Time Living Will No November 10, 2 023 12:10am Power of Car Body Designer No November 10, 2022 12:10am Advance Directive Response Recorded Date/ Time Living Will No November 28, 2022 11:08pm Power of Car Body Designer No November 28 11:08pm Advance Directive Response Recorded Date/ Time Living Will No November 29, 2022 4:18am Power of Car Body Designer No November 29 4:18am Advance Directive Response Recorded Date/ Time Living Will No December 13, 2022 11:10pm Power of Car Body Designer No December 13 11:10pm Advance Directive Response Recorded Date/ Time Living Will No December 26, 2022 5:50am Power of Car Body Designer No December 26 5:50am Advance Directive Response Recorded Date/ Time Living Will No January 21, 2023 2:19pm Power of Car Body Designer No January 21 2:19pm Advance Directive Response Recorded Date/ Time Living Will No January 22, 2023 12:29am Power of Car Body Designer No January 22 12:29am Advance Directive Response Recorded Date/ Time Living Will Yes March 10, 2023 6:08pm Power of Car Body Designer No March 10 6:08pm Advance Directive Response Recorded Date/ Time Living Will No April 30, 2023 4:54am Power of Car Body Designer No April 30 4:54am Advance Directive Response Recorded Date/ Time Living Will No August 09, 023 3:31am Power of Car Body Designer No August 09, 2023 3:31am Advance Directive Response Recorded Date/ Time Living Will Yes October 10 4:31am Power of Car Body Designer No October 10, 2023 4:31am Advance Directive Response Recorded Date/ Time Living Will Yes November 07, 024 8:20am Power of Car Body Designer No November 07, 2023 8:20am Advance Directive Response Recorded Date/ Time Living Will Yes November 20, 024 1:23pm Power of Car Body Designer No November 20, 2023 1:23pm Advance Directive Response Recorded Date/ Time Living Will No January 07, 2024 2:57am Power of Car Body Designer No January 06 2:57am Advance Directive Response Recorded Date/ Time Living Will No January 07, 2024 8:33am Power of Car Body Designer No January 06 8:33am Advance Directive Response Recorded Date/ Time Do you have a [facility] Power of Car Body Designer? No March 16, 2025 6:55pm Chief Complaint and Reason for Visit Chief [...] m Hyperammonemia February 13, 2025 1:37p m Chief Complaint Admit Date FOLLOW UP February 13, 2025 1:37p m E-ORDER February 13, 2025 2:00p m ABD PAIN March 16, 2025 6:27 pm Chief Complaint Admit Date FOLLOW UP February 13, 2025 1:37p m E-ORDER February 13, 2025 2:00p m ABD PAIN March 16, 2025 6:27 pm 6 M FU March 31, 2025 8:17a m Reason for Referral Specialty Diagnoses / Procedures Referred By Contac t Referred To Contact Optometry Diagnoses Type 2 diabetes mellitus without complication, with long-term current use of insulin (HCC) Procedures CONSULT TO OPTOMETRY OFFICE/OUTPATIENT [facility] HIGH MDM 60-74 MINUTES Lobito Maldonado MD [address] [place] [address] Referral ID Status Reason Start Date Expiration Date Visits Requested Visits Authorized [id number] Authorized PCP Requested Referral 02/06/2023 02/06/2024 1 [...] section and content) DATE CREATED AUTHOR 04/12/2018 [facility] DATE CREATED AUTHOR AUTHOR'S ORGANIZ ATION 11/27/2019 [facility] DATE CREATED AUTHOR AUTHOR'S ORGANIZ ATION 12/24/2021 [facility] DATE CREATED AUTHOR AUTHOR'S ORGANIZ ATION 05/23/2022 [facility] DATE CREATED AUTHOR AUTHOR[facility]S [facility]GANIZ ATION [facility] DATE CREATED AUTHOR AUTHOR'S ORGANIZ ATION 07/20/2025 [facility] DATE CREATED AUTHOR AUTHOR'S ORGANIZ ATION 08/06/2025 [facility] Source Comments (unrecognize d section and content) In the event this informatio n is protected by the Federal Confidentiality of Alcohol and Drug Abuse Patient Records regulations: The Federal rules restrict any use of the information to criminally investigate or prosecute any alcohol or drug abuse patient.[facility] the event this information is protected by the Federal Confidentiality of Alcohol and Drug Abuse Patient Records regulations: The Federal rules restrict any use of the information to criminally investigate or prosecute any alcohol or drug abuse patient.[facility] the event this information is protected by the Federal Confidentiality of Alcohol and Drug Abuse Patient Records regulations: The Federal rules restrict any use of the information to criminally investigate or prosecute any alcohol or drug abuse patient.[facility]In the event this information is protected by the Federal Confidentiality of Alcohol and Drug Abuse Patient Records regulations: The Federal rules restrict any use of the information to criminally investigate or prosecute any alcohol or drug abuse patient.[facility] the event this information is protected by the Federal Confidentiality of Alcohol and Drug Abuse Patient Records regulations: The Federal rules restrict any use of the information to criminally investigate or prosecute any alcohol or drug abuse patient.[facility]In the event this information is protected by the Federal Confidentiality of Alcohol and Drug Abuse Patient Records regulations: The Federal rules restrict any use of the information to criminally investigate or prosecute any alcohol or drug abuse patient.[facility]In the event this information is protected by the Federal Confidentiality of Alcohol and Drug Abuse Patient Records regulations: The Federal rules restrict any use of the information to criminally investigate or prosecute any alcohol or drug abuse patient.[facility]In the event this information is protected by the Federal Confidentiality of Alcohol and Drug Abuse Patient Records regulations: The Federal rules restrict any use of the information to criminally investigate or prosecute any alcohol or drug abuse patient.[facility]In the event this information is protected by the Federal Confidentiality of Alcohol and Drug Abuse Patient Records regulations: The Federal rules restrict any use of the information to criminally investigate or prosecute any alcohol or drug abuse patient.[facility]In the event this information is protected by the Federal Confidentiality of Alcohol and Drug Abuse Patient Records regulations: The Federal rules restrict any use of the information to criminally investigate or prosecute any alcohol or drug abuse patient.[facility]In the event this information is protected by the Federal Confidentiality of Alcohol and Drug Abuse Patient Records regulations: The Federal rules restrict any use of the information to criminally investigate or prosecute any alcohol or drug abuse patient.[facility]In the event this information is protected by the Federal Confidentiality of Alcohol and Drug Abuse Patient Records regulations: The Federal rules restrict any use of the information to criminally investigate or prosecute any alcohol or drug abuse patient.[facility]In the event this information is protected by the Federal Confidentiality of Alcohol and Drug Abuse Patient Records regulations: The Federal rules restrict any use of the information to criminally investigate or prosecute any alcohol or drug abuse patient.[facility] CenterIn the event this information is protected by the Federal Confidentiality of Alcohol and Drug Abuse Patient Records regulations: The Federal rules restrict any use of the information to criminally investigate or prosecute any alcohol or drug abuse patient.[facility] CenterIn the event this information is protected by the Federal Confidentiality of Alcohol and Drug Abuse Patient Records regulations: The Federal rules restrict any use of the information to criminally investigate or prosecute any alcohol or drug abuse patient.[facility] CenterIn the event this information is protected by the Federal Confidentiality of Alcohol and Drug Abuse Patient Records regulations: The Federal rules restrict any use of the information to criminally investigate or prosecute any alcohol or drug abuse patient.[facility] CenterIn the event this information is protected by the Federal Confidentiality of Alcohol and Drug Abuse Patient Records regulations: The Federal rules restrict any use of the information to criminally investigate or prosecute any alcohol or drug abuse patient.[facility] CenterIn the event this information is protected by the Federal Confidentiality of Alcohol and Drug Abuse Patient Records regulations: The Federal rules restrict any use of the information to criminally investigate or prosecute any alcohol or drug abuse patient.[facility] CenterIn the event this information is protected by the Federal Confidentiality of Alcohol and Drug Abuse Patient Records regulations: The Federal rules restrict any use of the information to criminally investigate or prosecute any alcohol or drug abuse patient.[facility] CenterIn the event this information is protected by the Federal Confidentiality of Alcohol and Drug Abuse Patient Records regulations: The Federal rules restrict any use of the information to criminally investigate or prosecute any alcohol or drug abuse patient.[facility] CenterIn the event this information is protected by the Federal Confidentiality of Alcohol and Drug Abuse Patient Records regulations: The Federal rules restrict any use of the information to criminally investigate or prosecute any alcohol or drug abuse patient.[facility] CenterIn the event this information is protected by the Federal Confidentiality of Alcohol and Drug Abuse Patient Records regulations: The Federal rules restrict any use of the information to criminally investigate or prosecute any alcohol or drug abuse patient.[facility] CenterIn the event this information is protected by the Federal Confidentiality of Alcohol and Drug Abuse Patient Records regulations: The Federal rules restrict any use of the information to criminally investigate or prosecute any alcohol or drug abuse patient.[facility] CenterIn the event this information is protected by the Federal Confidentiality of Alcohol and Drug Abuse Patient Records regulations: The Federal rules restrict any use of the information to criminally investigate or prosecute any alcohol or drug abuse patient.[facility] CenterIn the event this information is protected by the Federal Confidentiality of Alcohol and Drug Abuse Patient Records regulations: The Federal rules restrict any use of the information to criminally investigate or prosecute any alcohol or drug abuse patient.[facility] CenterIn the event this information is protected by the Federal Confidentiality of Alcohol and Drug Abuse Patient Records regulations: The Federal rules restrict any use of the information to criminally investigate or prosecute any alcohol or drug abuse patient.[facility] CenterIn the event this information is protected by the Federal Confidentiality of Alcohol and Drug Abuse Patient Records regulations: The Federal rules restrict any use of the information to criminally investigate or prosecute any alcohol or drug abuse patient.[facility] CenterIn the event this information is protected by the Federal Confidentiality of Alcohol and Drug Abuse Patient Records regulations: The Federal rules restrict any use of the information to criminally investigate or prosecute any alcohol or drug abuse patient.[facility] CenterIn the event this information is protected by the Federal Confidentiality of Alcohol and Drug Abuse Patient Records regulations: The Federal rules restrict any use of the information to criminally investigate or prosecute any alcohol or drug abuse patient.[facility] CenterIn the event this information is protected by the Federal Confidentiality of Alcohol and Drug Abuse Patient Records regulations: The Federal rules restrict any use of the information to criminally investigate or prosecute any alcohol or drug abuse patient.[facility] the event this information is protected by the Federal Confidentiality of Alcohol and Drug Abuse Patient Records regulations: The Federal rules restrict any use of the information to criminally investigate or prosecute any alcohol or drug abuse patient.[facility] CenterIn the event this information is protected by the Federal Confidentiality of Alcohol and Drug Abuse Patient Records regulations: The Federal rules restrict any use of the information to criminally investigate or prosecute any alcohol or drug abuse patient.[facility] CenterIn the event this information is protected by the Federal Confidentiality of Alcohol and Drug Abuse Patient Records regulations: The Federal rules restrict any use of the information to criminally investigate or prosecute any alcohol or drug abuse patient.[facility]In the event this information is protected by the Federal Confidentiality of Alcohol and Drug Abuse Patient Records regulations: The Federal rules restrict any use of the information to criminally investigate or prosecute any alcohol or drug abuse patient.[facility]In the event this information is protected by the Federal Confidentiality of Alcohol and Drug Abuse Patient Records regulations: The Federal rules restrict any use of the information to criminally investigate or prosecute any alcohol or drug abuse patient.[facility] CenterIn the event this information is protected by the Federal Confidentiality of Alcohol and Drug Abuse Patient Records regulations: The Federal rules restrict any use of the information to criminally investigate or prosecute any alcohol or drug abuse patient.[facility]In the event this information is protected by the Federal Confidentiality of Alcohol and Drug Abuse Patient Records regulations: The Federal rules restrict any use of the information to criminally investigate or prosecute any alcohol or drug abuse patient.[facility]In the event this information is protected by the Federal Confidentiality of Alcohol and Drug Abuse Patient Records regulations: The Federal rules restrict any use of the information to criminally investigate or prosecute any alcohol or drug abuse patient.[facility]In the event this information is protected by the Federal Confidentiality of Alcohol and Drug Abuse Patient Records regulations: The Federal rules restrict any use of the information to criminally investigate or prosecute any alcohol or drug abuse patient.[facility] CenterIn the event this information is protected by the Federal Confidentiality of Alcohol and Drug Abuse Patient Records regulations: The Federal rules restrict any use of the information to criminally investigate or prosecute any alcohol or drug abuse patient.[facility] CenterIn the event this information is protected by the Federal Confidentiality of Alcohol and Drug Abuse Patient Records regulations: The Federal rules restrict any use of the information to criminally investigate or prosecute any alcohol or drug abuse patient.[facility]In the event this information is protected by the Federal Confidentiality of Alcohol and Drug Abuse Patient Records regulations: The Federal rules restrict any use of the information to criminally investigate or prosecute any alcohol or drug abuse patient.[facility] CenterIn the event this information is protected by the Federal Confidentiality of Alcohol and Drug Abuse Patient Records regulations: The Federal rules restrict any use of the information to criminally investigate or prosecute any alcohol or drug abuse patient.[facility]In the event this information is protected by the Federal Confidentiality of Alcohol and Drug Abuse Patient Records regulations: The Federal rules restrict any use of the information to criminally investigate or prosecute any alcohol or drug abuse patient.[facility] CenterIn the event this information is protected by the Federal Confidentiality of Alcohol and Drug Abuse Patient Records regulations: The Federal rules restrict any use of the information to criminally investigate or prosecute any alcohol or drug abuse patient.[facility] CenterIn the event this information is protected by the Federal Confidentiality of Alcohol and Drug Abuse Patient Records regulations: The Federal rules restrict any use of the information to criminally investigate or prosecute any alcohol or drug abuse patient.[facility] CenterIn the event this information is protected by the Federal Confidentiality of Alcohol and Drug Abuse Patient Records regulations: The Federal rules restrict any use of the information to criminally investigate or prosecute any alcohol or drug abuse patient.[facility] CenterIn the event this information is protected by the Federal Confidentiality of Alcohol and Drug Abuse Patient Records regulations: The Federal rules restrict any use of the information to criminally investigate or prosecute any alcohol or drug abuse patient.[facility] CenterIn the event this information is protected by the Federal Confidentiality of Alcohol and Drug Abuse Patient Records regulations: The Federal rules restrict any use of the information to criminally investigate or prosecute any alcohol or drug abuse patient.[facility] CenterIn the event this information is protected by the Federal Confidentiality of Alcohol and Drug Abuse Patient Records regulations: The Federal rules restrict any use of the information to criminally investigate or prosecute any alcohol or drug abuse patient.[facility] CenterIn the event this information is protected by the Federal Confidentiality of Alcohol and Drug Abuse Patient Records regulations: The Federal rules restrict any use of the information to criminally investigate or prosecute any alcohol or drug abuse patient.[facility] CenterIn the event this information is protected by the Federal Confidentiality of Alcohol and Drug Abuse Patient Records regulations: The Federal rules restrict any use of the information to criminally investigate or prosecute any alcohol or drug abuse patient.[facility] CenterIn the event this information is protected by the Federal Confidentiality of Alcohol and Drug Abuse Patient Records regulations: The Federal rules restrict any use of the information to criminally investigate or prosecute any alcohol or drug abuse patient.[facility]In the event this information is protected by the Federal Confidentiality of Alcohol and Drug Abuse Patient Records regulations: The Federal rules restrict any use of the information to criminally investigate or prosecute any alcohol or drug abuse patient.[facility] CenterIn the event this information is protected by the Federal Confidentiality of Alcohol and Drug Abuse Patient Records regulations: The Federal rules restrict any use of the information to criminally investigate or prosecute any alcohol or drug abuse patient.[facility] CenterIn the event this information is protected by the Federal Confidentiality of Alcohol and Drug Abuse Patient Records regulations: The Federal rules restrict any use of the information to criminally investigate or prosecute any alcohol or drug abuse patient.[facility] CenterIn the event this information is protected by the Federal Confidentiality of Alcohol and Drug Abuse Patient Records regulations: The Federal rules restrict any use of the information to criminally investigate or prosecute any alcohol or drug abuse patient.[facility] CenterIn the event this information is protected by the Federal Confidentiality of Alcohol and Drug Abuse Patient Records regulations: The Federal rules restrict any use of the information to criminally investigate or prosecute any alcohol or drug abuse patient.[facility]In the event this information is protected by the Federal Confidentiality of Alcohol and Drug Abuse Patient Records regulations: The Federal rules restrict any use of the information to criminally investigate or prosecute any alcohol or drug abuse patient.[facility]In the event this information is protected by the Federal Confidentiality of Alcohol and Drug Abuse Patient Records regulations: The Federal rules restrict any use of the information to criminally investigate or prosecute any alcohol or drug abuse patient.[facility]In the event this information is protected by the Federal Confidentiality of Alcohol and Drug Abuse Patient Records regulations: The Federal rules restrict any use of the information to criminally investigate or prosecute any alcohol or drug abuse patient.[facility] CenterIn the event this information is protected by the Federal Confidentiality of Alcohol and Drug Abuse Patient Records regulations: The Federal rules restrict any use of the information to criminally investigate or prosecute any alcohol or drug abuse patient.[facility]In the event this information is protected by the Federal Confidentiality of Alcohol and Drug Abuse Patient Records regulations: The Federal rules restrict any use of the information to criminally investigate or prosecute any alcohol or drug abuse patient.[facility] CenterIn the event this information is protected by the Federal Confidentiality of Alcohol and Drug Abuse Patient Records regulations: The Federal rules restrict any use of the information to criminally investigate or prosecute any alcohol or drug abuse patient.[facility]In the event this information is protected by the Federal Confidentiality of Alcohol and Drug Abuse Patient Records regulations: The Federal rules restrict any use of the information to criminally investigate or prosecute any alcohol or drug abuse patient.[facility]In the event this information is protected by the Federal Confidentiality of Alcohol and Drug Abuse Patient Records regulations: The Federal rules restrict any use of the information to criminally investigate or prosecute any alcohol or drug abuse patient.[facility]In the event this information is protected by the Federal Confidentiality of Alcohol and Drug Abuse Patient Records regulations: The Federal rules restrict any use of the information to criminally investigate or prosecute any alcohol or drug abuse patient.[facility]In the event this information is protected by the Federal Confidentiality of Alcohol and Drug Abuse Patient Records regulations: The Federal rules restrict any use of the information to criminally investigate or prosecute any alcohol or drug abuse patient.[facility] CenterIn the event this information is protected by the Federal Confidentiality of Alcohol and Drug Abuse Patient Records regulations: The Federal rules restrict any use of the information to criminally investigate or prosecute any alcohol or drug abuse patient.[facility] CenterIn the event this information is protected by the Federal Confidentiality of Alcohol and Drug Abuse Patient Records regulations: The Federal rules restrict any use of the information to criminally investigate or prosecute any alcohol or drug abuse patient.[facility] CenterIn the event this information is protected by the Federal Confidentiality of Alcohol and Drug Abuse Patient Records regulations: The Federal rules restrict any use of the information to criminally investigate or prosecute any alcohol or drug abuse patient.[facility] CenterIn the event this information is protected by the Federal Confidentiality of Alcohol and Drug Abuse Patient Records regulations: The Federal rules restrict any use of the information to criminally investigate or prosecute any alcohol or drug abuse patient.[facility] CenterIn the event this information is protected by the Federal Confidentiality of Alcohol and Drug Abuse Patient Records regulations: The Federal rules restrict any use of the information to criminally investigate or prosecute any alcohol or drug abuse patient.[facility] CenterIn the event this information is protected by the Federal Confidentiality of Alcohol and Drug Abuse Patient Records regulations: The Federal rules restrict any use of the information to criminally investigate or prosecute any alcohol or drug abuse patient.[facility] CenterIn the event this information is protected by the Federal Confidentiality of Alcohol and Drug Abuse Patient Records regulations: The Federal rules restrict any use of the information to criminally investigate or prosecute any alcohol or drug abuse patient.[facility] CenterIn the event this information is protected by the Federal Confidentiality of Alcohol and Drug Abuse Patient Records regulations: The Federal rules restrict any use of the information to criminally investigate or prosecute any alcohol or drug abuse patient.[facility] CenterIn the event this information is protected by the Federal Confidentiality of Alcohol and Drug Abuse Patient Records regulations: The Federal rules restrict any use of the information to criminally investigate or prosecute any alcohol or drug abuse patient.[facility] Reason for Visit (unrecogniz ed section and content) Reason Comments Refill Request Reason Onset Date Comments Refill Request 03/09/2022 Reason Comments Hospital F/U pancreatitis Establish Care from Family Practice Reason Comments Consult Initial [facility] Pt Outr each Reason [...] chills , congestion x3 days Reason Comments [facility] ER visit Reason Onset Date Comments Refill Request 01/16/2023 Reason Comments Diabetes Blood sugar: 146A1c: 10.9 Specialty Diagnoses / Procedures Referred By Susie t Referred To Contact Optometry Diagnoses Type 2 diabetes mellitus without complication, with long-term current use of insulin (HCC) Procedures CONSULT TO OPTOMETRY OFFICE/OUTPATIENT NEW HIGH MDM 60-74 MINUTES Lobito Maldonado MD [address] [place] [address] Referral ID Status Reason Start Date Expiration Date V isits Requested Visits Authorized [id number] Closed PCP Requested Referral 02/06/2023 02/06/2024 1 1 Reason Onset Date Comments Refill Request 05/01/2023 Reason Comments New Nail Check Specialty Diagnoses / Procedures Referred By Contac t Referred To Contact Podiatry Diagnoses Type 2 diabetes mellitus without complication, with long-term current use of insulin (HCC) Dermatophytosis, nail Procedures CONSULT TO PODIATRY OFFICE/OUTPATIENT NEW HIGH MDM 60-74 MINUTES Lobito Maldonado MD [address] [place] [address] Referral ID Status Reason Start Date Expiration Date V isits Requested Visits Authorized [id number] Closed PCP Requested Referral 05/04/2023 05/03/2024 1 [...] Reason Onset Date Comments Refill Request 02/14/2025 Reason Onset Date Comments Refill Request 03/21/2025 Reason Comments Recurrent Erosion Follow Up [facility] ER Pancr eatitis Care Teams (unrecognized sec tion and content) 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 Relationship Specialty Start Date End Date Souleymane Elliott APRN.TRAFFIC OFFICER, DNP [address] [place] [address] PCP - General Family Practice 12/01/20 Heather Kelley CNP [address] [place] [address] Referring Neurology 04/06/18 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 Relationship Specialty Start Date End Date Souleymane Elliott, COMPRESSOR OPERATOR ADJUSTER.TRAFFIC OFFICER, DNP [address] [facility] [place] [address] PCP - General Family Practice 12/01/20 Heather Kelley CNP [address] [place] [address] Referring Neurology 04/06/18 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 Relationship Specialty Start Date End Date Souleymane Elliott, COMPRESSOR OPERATOR ADJUSTER.TRAFFIC OFFICER, DNP [address] [facility] [place] [address] PCP - General Family Practice 12/01/20 Heather Kelley CNP [address] [place] [address] Referring Neurology 04/06/18 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 Relationship Specialty Start Date End Date Souleymane Elliott, COMPRESSOR OPERATOR ADJUSTER.TRAFFIC OFFICER, DNP [address] [facility] [place] [address] PCP - General Family Practice 12/01/20 Heather Kelley CNP [address] [place] [address] Referring Neurology 04/06/18 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 Relationship Specialty Start Date End Date Lobito Maldonado MD [address] [facility] [place] [address] PCP - General Internal Medicine 03/10/22 Heather Kelley CNP [address] [place] [address] Referring Neurology 04/06/18 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 Relationship Specialty Start Date End Date Lobito Maldonado MD [address] [facility] [place] [address] PCP - General Internal Medicine 03/10/22 Heather Kelley, TRAFFIC OFFICER [address] [place] [address] Referring Neurology 04/06/18 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 Relationship Specialty Start Date End Date Lobito Maldonado MD [address] [facility] [place] [address] PCP - General Internal Medicine 03/10/22 Heather Kelley, TRAFFIC OFFICER [address] [place] [address] Referring Neurology 04/06/18 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 Relationship Specialty Start Date End Date Lobito Maldonado MD [address] [facility] [place] [address] PCP - General Internal Medicine 03/10/22 Heather Kelley, TRAFFIC OFFICER [address] [place] [address] Referring Neurology 04/06/18 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 Relationship Specialty Start Date End Date Lobito Maldonado MD [address] [facility] [place] [address] PCP - General Internal Medicine 03/10/22 Heather Kelley S, TRAFFIC OFFICER [address] [place] [address] Referring Neurology 04/06/18 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 Relationship Specialty Start Date End Date Lobito Maldonado MD [address] [facility] [place] [address] PCP - General Internal Medicine 03/10/22 Heather Kelley, TRAFFIC OFFICER [address] [place] [address] Referring Neurology 04/06/18 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 Relationship Specialty Start Date End Date Lobito Maldonado MD [address] [facility] [place] [address] PCP - General Internal Medicine 03/10/22 Heather Kelley, TRAFFIC OFFICER [address] [place] [address] Referring Neurology 04/06/18 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 Relationship Specialty Start Date End Date Lobito Maldonado MD [address] [facility] [place] [address] PCP - General Internal Medicine 03/10/22 Heather Kelley CNP [address] [place] [address] Referring Neurology 04/06/18 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 Relationship Specialty Start Date End Date Lobito Maldonado MD [address] [place] [address] PCP - General Internal Medicine 03/10/22 Heather Kelley CNP [address] [place] [address] Referring Neurology 04/06/18 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 Relationship Specialty Start Date End Date Souleymane Elliott APRN.EVA, DNP [address] [place] [address] PCP - General Family Medicine 12/01/20 03/09/22 Lobito Maldonado MD [address] [facility] [place] [address] PCP - General Internal Medicine 03/10/22 Heather Kelley TRAFFIC OFFICER [address] [place] [address] Referring Neurology 04/06/18 Team Status: Active Member Role Status Dates [facility] Family Provider Active Dr. Lobito Maldonado MD Primary Care Provider Active Team Status: Inactive Member Role Status Dates Savannah Balnton WALL WORKER, WALL WORKER-C Attending Provider Active Dr. Lobito Maldonado MD [...] Lobito Maldonado MD Primary Care Provider Active Alejandor Gandhi MD Attending Provider, Emergency Provid er [...] Carr MD Admit Provider, Attending Provider Active 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 Relationship Specialty Start Date End Date Lobito Maldonado MD [address] [place] [address] PCP - General Internal Medicine 03/10/22 Heather Kelley, TRAFFIC OFFICER [address] [place] [address] Referring Neurology 04/06/18 Team Status: Active Member [...] Dr. Veena Tidwell MD Attending Provider Active 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 Relationship Specialty Start Date End Date Lobito Maldonado MD [address] [place] [address] PCP - General Internal Medicine 03/10/22 Heather Kelley S, TRAFFIC OFFICER [address] [place] [address] Referring Neurology 04/06/18 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 Relationship Specialty Start Date End Date Lobito Maldonado MD [address] [place] [address] PCP - General Internal Medicine 03/10/22 Heather Kelley S, TRAFFIC OFFICER [address] [place] [address] Referring Neurology 04/06/18 Team Status: Inactive Member Role Status Dates Dr. Lobito Maldonado MD Primary Care Provider Active Dr. Saurabh Cherry MD Emergency Provider Active 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 Relationship Specialty Start Date End Date Lobito Maldonado MD [address] [place] [address] PCP - General Internal Medicine 03/10/22 Warren, [place] S, TRAFFIC OFFICER [address] [place] [address] Referring Neurology 04/06/18 Team Status: Inactive Member [...] Dr. Joe Gallagher MD Emergency Provider Active 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 Relationship Specialty Start Date End Date Lobito Maldonado MD [address] [facility] [place] [address] PCP - General Internal Medicine 03/10/22 Warren, [place] S, TRAFFIC OFFICER [address] [facility] [place] [address] Referring Neurology 04/06/18 Team Status: Active Member [...] Dr. Rajendra Rios DO Emergency Provider Active 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 Relationship Specialty Start Date End Date Lobito Maldonado MD [address] [facility] [place] [address] PCP - General Internal Medicine 03/10/22 Warren, [place] S, TRAFFIC OFFICER [address] [place], [place] [address] Referring Neurology 04/06/18 Team Status: Inactive Member Role Status Dates Dr. Lobito Maldonado MD Primary Care Provider Active Dr. Rajendra Rios , DO Attending Provider, Emergency P rovider Active Team Status: Inactive Member Role Status Dates Dr. Lobito Maldonado MD Primary Care Provider Active Dr. Neftali Dickson , DO Attending Provider, Emergency P rovider Active 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 Relationship Specialty Start Date End Date Lobito Maldonado MD [address] [facility] [place], [place] [address] PCP - General Internal Medicine 03/10/22 Heather Kelley, TRAFFIC OFFICER [address] [place] [address] Referring Neurology 04/06/18 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 Relationship Specialty Start Date End Date Lobito Maldonado MD [address] [place] [address] PCP - General Internal Medicine 03/10/22 Heather Kelley CNP [address] [place] [address] Referring Neurology 04/06/18 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 Relationship Specialty Start Date End Date Lobito Maldonado MD [address] [place] [address] PCP - General Internal Medicine 03/10/22 Heather Kelley CNP [address] [place] [address] Referring Neurology 04/06/18 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 Relationship Specialty Start Date End Date Lobito Maldonado MD [address] [facility] [place] [address] PCP - General Internal Medicine 03/10/22 Heather Kelley TRAFFIC OFFICER [address] [place] [address] Referring Neurology 04/06/18 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 Relationship Specialty Start Date End Date Lobito Maldonado MD [address] [facility] [place] [address] PCP - General Internal Medicine 03/10/22 Heather Kelley, TRAFFIC OFFICER [address] [place], [place] [address] Referring Neurology 04/06/18 Team Status: Active Member Role Status Dates Dr. Lobito Maldonado MD Primary Care Provider Active Dr. Lynnette Julian DO Emergency Provider Active Dr. Mayelin Pedraza MD Attending Provider Active Team Status: Inactive Member Role Status Dates Dr. Lobito Maldonado MD Primary Care Provider Active Dr. Lynnette Julian DO Attending Provider, Emergency Yissel loyola Active Team Status: Inactive Member Role Status Dates Dr. Lobito Maldonado MD Primary Care Provider Active Dr. Neftali Dickson DO Emergency Provider Active 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 Relationship Specialty Start Date End Date Lobito Maldonado MD [address] [place] [address] PCP - General Internal Medicine 03/10/22 Heather Kelley, TRAFFIC OFFICER [address] [place] [place] [address] Referring Neurology 04/06/18 Team Status: Inactive Member Role Status Dates Dr. Lobito Maldonado MD Primary Care Provider Active Dr. Phillip Aguiar DO Emergency Provider Active Team Status: Inactive Member Role Status Dates Dr. Lobito Maldonado MD Primary Care Provider Active Dr. Phillip Aguiar , DO Attending Provider, Emergency Pr ovider Active 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 Relationship Specialty Start Date End Date Lobito Maldonado MD [address] [place] [address] PCP - General Internal Medicine 03/10/22 Heather Kelley, TRAFFIC OFFICER [address] [place], [place] [address] Referring Neurology 04/06/18 Team Status: Active Member Role Status Dates Dr. Lobito Maldonado MD Primary Care Provider Active Dr. Phillip Aguiar , DO Emergency Provider Active Dr. Daiana Banda , DO Admit Provider, Attending Pro vider Active Team Status: Active Member Role Status Dates Dr. Lobito Maldonado MD Primary Care Provider Active Dr. Phillip Aguiar , DO Emergency Provider Active Dr. Daiana Banda [...] Dr. Mg Patel MD Attending Provider Active 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 Relationship Specialty Start Date End Date Lobito Maldonado MD [address] [place] [address] PCP - General Internal Medicine 03/10/22 Heather Kelley, TRAFFIC OFFICER [address] [place] [address] Referring Neurology 04/06/18 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 Relationship Specialty Start Date End Date Lobito Maldonado MD [address] [place] [address] PCP - General Internal Medicine 03/10/22 Heather Kelley CNP [address] [place] [address] Referring Neurology 04/06/18 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 Relationship Specialty Start Date End Date Lobito Maldonado MD [address] [facility] [place] [address] PCP - General Internal Medicine 03/10/22 Heather Kelley CNP [address] [place] [address] Referring Neurology 04/06/18 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 Relationship Specialty Start Date End Date Lobito Maldonado MD [address] [facility] [place] [address] PCP - General Internal Medicine 03/10/22 Heather Kelley CNP [address] [place] [address] Referring Neurology 04/06/18 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 Relationship Specialty Start Date End Date Lobito Maldonado MD [address] [place] [address] PCP - General Internal Medicine 03/10/22 Heather Kelley CNP [address] [place] [address] Referring Neurology 04/06/18 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 Relationship Specialty Start Date End Date Lobito Maldonado MD [address] [facility] [place], [place] [address] PCP - General Internal Medicine 03/10/22 Heather Kelley, TRAFFIC OFFICER [address] [place], [place] [address] Referring Neurology 04/06/18 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 Relationship Specialty Start Date End Date Lobito Maldonado MD [address] [facility] [place] [address] PCP - General Internal Medicine 03/10/22 Heather Kelley, TRAFFIC OFFICER [address] [place], [place] [address] Referring Neurology 04/06/18 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 Relationship Specialty Start Date End Date Lobito Maldonado MD [address] [facility] [place] [address] PCP - General Internal Medicine 03/10/22 Heather Kelley, TRAFFIC OFFICER [address] [place] [address] Referring Neurology 04/06/18 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 Relationship Specialty Start Date End Date Lobito Maldonado MD [address] [place] [address] PCP - General Internal Medicine 03/10/22 Heather Kelley, TRAFFIC OFFICER [address] [place], [place] [address] Referring Neurology 04/06/18 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 Relationship Specialty Start Date End Date Lobito Maldonado MD [address] [place], [place] [address] PCP - General Internal Medicine 03/10/22 WarrenHeather CNP [address] [place], [place] [address] Referring Neurology 04/06/18 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 Relationship Specialty Start Date End Date Lobito Maldonado MD [address] [facility] [place] [address] PCP - General Internal Medicine 03/10/22 Heather Kelley CNP [address] [place] [address] Referring Neurology 04/06/18 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 Relationship Specialty Start Date End Date Lobito Maldonado MD [address] [facility] [place] [address] PCP - General Internal Medicine 03/10/22 Heather Kelley CNP [address] [place] [address] Referring Neurology 04/06/18 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 Relationship Specialty Start Date End Date Lobito Maldonado MD [address] [facility] [place], [place] [address] PCP - General Internal Medicine 03/10/22 Heather Kelley CNP [address] [place] [address] Referring Neurology 04/06/18 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 Relationship Specialty Start Date End Date Lobito Maldonado MD [address] [facility] [place], [place] [address] PCP - General Internal Medicine 03/10/22 Heather Kelley CNP [address] [place] [address] Referring Neurology 04/06/18 Alis Chua, COMPRESSOR OPERATOR ADJUSTER.TRAFFIC OFFICER [address] [place] [address] Duct Layer Helper Internal Medicine 09/02/24 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 Relationship Specialty Start Date End Date Lobito Maldonado MD [address] [place] [address] PCP - General Internal Medicine 03/10/22 Heather Kelley, TRAFFIC OFFICER [address] [place] [address] Referring Neurology 04/06/18 Alis Chua, COMPRESSOR OPERATOR ADJUSTER.TRAFFIC OFFICER [address] [place] [address] Duct Layer Helper Internal Medicine 09/02/24 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 Relationship Specialty Start Date End Date Lobito Maldonado MD [address] [place] [address] PCP - General Internal Medicine 03/10/22 Heather Kelley, TRAFFIC OFFICER [address] [place] [address] Referring Neurology 04/06/18 Alis Chua, COMPRESSOR OPERATOR ADJUSTER.TRAFFIC OFFICER [address] [place] [address] Duct Layer Helper Internal Medicine 09/02/24 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 Relationship Specialty Start Date End Date Lobito Maldonado MD [address] [place] [place] [address] PCP - General Internal Medicine 03/10/22 Heather Kelley, TRAFFIC OFFICER [address] [place] [address] Referring Neurology 04/06/18 Alis Chua, COMPRESSOR OPERATOR ADJUSTER.TRAFFIC OFFICER [address] [facility] [place] [address] Duct Layer Helper Internal Medicine 09/02/24 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 Relationship Specialty Start Date End Date Lobito Maldonado MD [address] [place] [address] PCP - General Internal Medicine 03/10/22 Heather Kelley, TRAFFIC OFFICER [address] [place] [address] Referring Neurology 04/06/18 Alis Chua, COMPRESSOR OPERATOR ADJUSTER.TRAFFIC OFFICER [address] [facility] [place] [address] Duct Layer Helper Internal Medicine 09/02/24 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 Relationship Specialty Start Date End Date Lobito Maldonado MD [address] [facility] [place] [address] PCP - General Internal Medicine 03/10/22 Heather Kelley, TRAFFIC OFFICER [address] [place] [address] Referring Neurology 04/06/18 Alis Chua, COMPRESSOR OPERATOR ADJUSTER.TRAFFIC OFFICER [address] [place] [address] Duct Layer Helper Internal Medicine 09/02/24 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 Relationship Specialty Start Date End Date Lobito Maldonado MD [address] [place], [place] [address] PCP - General Internal Medicine 03/10/22 Heather Kelley CNP [address] [place], [place] [address] Referring Neurology 04/06/18 Alis Chua, COMPRESSOR OPERATOR ADJUSTER.TRAFFIC OFFICER [address] [place] [address] Duct Layer Helper Internal Medicine 09/02/24 Team Status: Inactive Member [...] February 13, 2025 End: February 13, 2025 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 Relationship Specialty Start Date End Date Lobito Maldonado MD [address] [place], [place] [address] PCP - General Internal Medicine 03/10/22 Heather Kelley CNP [address] [place], [place] [address] Referring Neurology 04/06/18 Alis Chua, COMPRESSOR OPERATOR ADJUSTER.TRAFFIC OFFICER [address] [facility] [place], [place] [address] [facility] Internal Medicine 09/02/24 Team Status: Active Member Role Status Dates Dr. Lobito Maldonado MD Primary Care Provider Active Team Status: Inactive Member Role Status Dates Dr. Lobito Maldonado MD Primary Care Provider Active Start: March 16, 2025 End: March 16, 2025 Dr. Genaro Trammell MD Emergency Provider Active Sta rt: March 16, 2025 End: March 16, 2025 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 Relationship Specialty Start Date End Date Lobito Maldonado MD [address] [facility] [place], [place] [address] PCP - General Internal Medicine 03/10/22 Heather Kelley, TRAFFIC OFFICER [address] [place], [place] [address] Referring Neurology 04/06/18 Alis Chua, COMPRESSOR OPERATOR ADJUSTER.TRAFFIC OFFICER [address] [facility] [place], [place] [address] [facility] Internal Medicine 09/02/24 Team Status: Active Member Role/Relationship Status Dates Dr. Lobito Maldonado MD Primary Care Provider Active Team Status: Inactive Member Role/Relationship Status Dates Dr. Lobito Maldonado MD Primary Care Provider Active Start: February 13, 2025 End: February 13, 2025 Dr. Lobito Maldonado MD Referring Provider Active Start: February 13, 2025 End: February 13, 2025 Dr. Antony Burnett MD Attending Provider Active Start: February 13, 2025 End: February 13, 2025 Team Status: Inactive Member Role/Relationship Status Dates Dr. Lobito Maldonado MD Primary Care Provider Active Start: February 13, 2025 End: February 13, 2025 Dr. Antony Burnett MD Attending Provider Active Start: February 13, 2025 End: February 13, 2025 Dr. Antony Burnett MD Referring Provider Active Start: February 13, 2025 End: February 13, 2025 Team Status: Inactive Member Role/Relationship Status Dates Dr. Lobito Maldonado MD Primary Care Provider Active Start: March 16, 2025 End: March 16, 2025 Dr. Genaro Trammell MD Attending Provider Active Sta rt: March 16, 2025 End: March 16, 2025 Dr. Genaro Trammell MD Emergency Provider Active Sta rt: March 16, 2025 End: March 16, 2025 Team Status: Inactive Member Role/Relationship Status Dates Dr. Lobito Maldonado MD Primary Care Provider Active Start: March 31, 2025 End: March 31, 2025 Dr. Lobito Maldonado MD Referring Provider Active Start: March 31, 2025 End: March 31, 2025 Dr. Taras Santamaria DO Attending Provider Active Start: March 31, 2025 End: March 31, 2025 Goals (unrecognized section and content) Goals may [...] BE BASED ON THE PRIMARY CLINICAL RECORDS. [facility]. provides no warranty or guarantee of the accuracy or completeness of information in this document.
== END | disposition home or self-care (01) ==
PROVIDERS: PCP Internal Medicine; Referring Provider Internal Medicine Gastroenterology; Visit Provider Internal Medicine Gastroenterology
DX: R10.9 Unspecified abdominal pain (principal); K86.0 Alcohol-induced chronic pancreatitis
CPT/HCPCS: 74177; Q9967

== ENCOUNTER 2025-09-10 08:12 | Emergency (ER) | payer MEDICARE, MEDICAID, SELFPAY ==
[2025-09-10 08:13] VITALS: BP 140/92; PULSE 118; RESP 16; TEMP 36.6; O2SAT 99; BMI 26.3
--- NOTE | 2025-09-10 08:59 | CT_ITS ---
PROCEDURE: ABDOMEN/PELVIS W IV CONT ONLY 09/10/2025 REASON FOR EXAM: RIGHT UPPER QUADRANT/FLANK PAIN TECHNIQUE: Procedure Code: [id number] Modality: CT Procedure: ABDOMEN/PELVIS W IV CONT ONLY Coronal and Sagittal reconstruction series were provided. CONTRAST: Isovue 300 VOLUME: 93 mL One or more dose reduction techniques were used (e.g., Automated exposure control, adjustment of the mA and/or kV according to patient size, use of iterative reconstruction technique. RADIATION DOSE SUMMARY: DLP: 895.81 mGycm COMPARISON: CT abdomen/pelvis 08/19/2025 FINDINGS: Lower chest: Lung bases are clear. Mild dependent atelectasis. Liver: Normal size. Hepatic steatosis. Unchanged focal hypoattenuating area in the left liver adjacent to the falciform ligament is nonspecific but may reflect focal fatty infiltration. No enhancing lesion. Gallbladder and biliary ducts: Surgically absent. Normal caliber intrahepatic and common bile ducts. Pancreas:Unremarkable. No ductal dilatation or mass. No peripancreatic fluid. Spleen: Unremarkable. Adrenal glands: Unremarkable. Kidneys and ureters: Normal renal size, morphology, and enhancement. No nephroureterolithiasis or hydroureteronephrosis. Left renal cyst measuring 1.3 x 1.3 cm. Scattered subcentimeter bilateral renal hypodensities too small to further characterize but likely reflecting renal cysts. Urinary bladder: Unremarkable. GI: Unremarkable stomach and duodenum. Normal caliber small bowel and large bowel.Diverticulosis without evidence of diverticulitis. Appendix: Unremarkable. Peritoneum: No ascites. Lymph nodes: No lymphadenopathy. Vasculature: Portal, splenic, and superior mesenteric veins are patent. No abdominal aortic aneurysm. Atherosclerotic calcification of the abdominal aorta and common iliac arteries. Reproductive organs: Prostatomegaly. Musculoskeletal and soft tissues: No aggressive osseous lesions. Unremarkable soft tissues. CT/Abdomen/Pelvis W IV Cont ONLY IMPRESSION: 1. No acute abdominopelvic pathology. 2. Hepatic steatosis. 3. Diverticulosis without evidence of diverticulitis. 4. Prostatomegaly. 5. Additional details as discussed in the body of the report. Reading Location: [id number]
--- NOTE | 2025-09-10 09:05 | EX.ED.DYSGE1 ---
HPI History of Present Illness Chief Complaint: Abd Pain Narrative Narrative: Chief complaint and HPI: 60-year-old male with past medical history of pancreatitis secondary to alcohol abuse, GERD, HTN presents for evaluation of right upper quadrant/flank pain. Patient states he has a history of pancreatitis in which he had a cholecystectomy. He states he has had no alcohol for the past 2 years. Patient states approximately 2 days ago he started developing right upper quadrant/flank pain. States it is similar to his pancreatitis although it is not in the epigastrium. Associated symptom is nausea. He denies any chest pain, shortness of breath, URI symptoms, diarrhea, constipation, dysuria. Denies any history of kidney stones. Review of systems: See HPI Medications: As listed on the chart Allergies: As listed on the chart PFSH: Per chart Vital signs: As listed on the chart. Reviewed. Physical exam: Gen: A&O x3, NAD Head: Normocephalic, atraumatic Eyes: No sclera icterus, conjunctiva clear ENT: Moist mucous membranes Neck: Trachea midline CV: RRR, no murmurs, no peripheral edema Resp: Lungs CTA BL, no w/r/c GI: Abd soft, non-distended, mildly tender to palpation in the right upper quadrant and flank, no r/r/g : No CVA tenderness Musc: Full ROM, no deformity Skin: Warm, dry Neuro: Alert, oriented, grossly intact, sensation intact Psych: Cooperative, appropriate mood and affect [facility] Medical History Bulging disc Liver fibrosis Myocardial infarct Stroke/cerebrovascular accident Alcohol abuse Vision loss of right eye Vision loss of left eye Cancer Neck pain PSA elevation GI bleed TIA (transient ischemic attack) Diabetes Family history of cerebral aneurysm Polyneuropathy Gastric ulcer GERD (gastroesophageal reflux disease) Former tobacco use Constipation Glaucoma Seizure disorder Hyperlipidemia PTSD (post-traumatic stress disorder) Anxiety and depression Essential (primary) hypertension Home Medications ?Medication ?Instructions ?Recorded ?Last Taken ?Type amitriptyline 25 mg tablet 25 mg PO QHS depression 07/03/18 09/09/25 History cholecalciferol (vitamin D3) 125 1 cap PO DAILY supplement 11/09/18 09/09/25 History mcg (5,000 unit) capsule hydrochlorothiazide 25 mg tablet 25 mg PO DAILY blood 06/05/20 09/09/25 Rx pressure/heart #30 tabs gabapentin 300 mg capsule 300 mg PO BID nerve pain 10/06/20 09/09/25 History metformin 500 mg tablet 500 mg PO BID diabetes #0 tabs 03/04/22 09/09/25 Rx aspirin 81 mg tablet,delayed 81 mg PO DAILY heart health 07/04/22 09/09/25 History release escitalopram oxalate 10 mg tablet 10 mg PO DAILY depression 07/04/22 09/09/25 History losartan 25 mg tablet 25 mg PO DAILY blood pressure 07/04/22 09/09/25 History pantoprazole 40 mg tablet,delayed 40 mg PO DAILY reflux #30 tabs 01/08/24 09/09/25 Rx release (Protonix) tamsulosin 0.4 mg capsule 0.4 mg PO DAILY@1730 prostate 30 01/08/24 09/09/25 Rx days #30 caps insulin glargine 100 unit/mL (3 12 unit subcut QHS diabetes 02/25/24 09/09/25 History mL) subcutaneous pen (Lantus Solostar U-100 Insulin) latanoprost 0.005 % eye drops 1 drp ophthalmic (eye) Q eye 02/25/24 09/09/25 History health loratadine 10 mg tablet 10 mg PO DAILY allergies 02/25/24 09/09/25 History magnesium oxide 400 mg (241.3 mg 400 mg PO BID 02/25/24 09/09/25 History magnesium) tablet pravastatin 20 mg tablet 20 mg PO DAILY cholesterol 02/25/24 09/09/25 History levocarnitine 330 mg tablet 660 mg (2 x 330 mg) PO BID #120 04/18/24 09/09/25 Rx tabs amlodipine 10 mg tablet 10 mg PO DAILY blood pressure #90 05/24/24 09/09/25 Rx tabs metoclopramide HCl 5 mg tablet 5 mg PO Q8H PRN PRN nausea and 08/13/24 09/10/25 Rx (Reglan) vomiting #10 tabs hvmswi-tzlkeuop-vjxcaif(pork)12,000-38,000-60,000 2 cap PO .COMPLEX #300 caps 01/06/25 09/09/25 Rx unit capsule,del rel (Creon) levetiracetam 500 mg tablet 500 mg PO BID #60 tabs 02/13/25 09/09/25 Rx cetirizine 10 mg tablet (Zyrtec) 10 mg PO QDAY PRN allergy symptoms 08/18/25 09/08/25 Rx #1 TAB famotidine 40 mg tablet 40 mg PO BID #3 tabs 08/18/25 09/09/25 Rx acetaminophen 500 mg capsule 1,000 mg PO Q6H PRN pain 09/10/25 09/09/25 History Allergy/AdvReac Type Severity Reaction Status Date / Time Iodinated Contrast Media Allergy Mild Rash Verified 09/10/25 08:15 hydromorphone (From Dilaudid) Allergy Itching Verified 09/10/25 08:15 lisinopril Allergy Angioedema Verified 09/10/25 08:15 cyclobenzaprine AdvReac Severe Skin Verified 09/10/25 08:15 crawling hydrocodone bitartrate (From AdvReac Itching Verified 09/10/25 08:15 Vicodin) morphine AdvReac Itching Verified 09/10/25 08:15 tramadol AdvReac Itching Verified 09/10/25 08:15 Family History Mother Heart disease Sister Cerebral aneurysm Father Diabetes Kidney disease Anxiety and depression Surgical History History of cholecystectomy (12/2013) History of left heart catheterization (10/31/11) Social History household members: none housing: house Smoking Status: Former smoker Tobacco: How many years used: 7 Electronic Cigarette Use: not used alcohol intake: former details: 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 substance use type: does not use caffeine: No robbin/zoroastrianism: Confucianist seatbelt use: always EXAM Physical Exam Const Vital Signs: 09/10/25 08:13 09/10/25 10:21 09/10/25 12:06 Temperature 98 F Temperature Source Oral Pulse Rate 118 H 73 80 Respiratory Rate 16 16 25 H Blood Pressure 140/92 H 157/98 H 132/100 H Blood Pressure Mean 108 117 110 Pulse Ox 99 100 99 Oxygen Delivery Method Room Air Room Air MDM MDM MDM Narrative Medical decision making narrative: 60-year-old male with past medical history of pancreatitis secondary to alcohol abuse, GERD, HTN presents for evaluation of right upper quadrant/flank pain. Patient states he has a history of pancreatitis in which he had a cholecystectomy. He states he has had no alcohol for the past 2 years. Patient states approximately 2 days ago he started developing right upper quadrant/flank pain. States it is similar to his pancreatitis although it is not in the epigastrium. Associated symptom is nausea. Differential diagnosis includes but is not limited to pancreatitis, colitis, urolithiasis, UTI, other intra-abdominal pathology. NS bolus, fentanyl, Zofran ordered for symptoms. Patient has a contrast allergy, hives in which Benadryl was ordered. Laboratory workup ordered including CT abdomen and pelvis. CBC unremarkable. BMP shows mild dehydration without AGA or transaminitis. Patient is hyperglycemic at 352. He is a known diabetic. Will give fluids and reassess. Lipase mildly elevated at 94. This is actually downtrending from 03/16 at 130. UA positive for glucose but negative for UTI or ketones. Alcohol level unremarkable. CT abdomen pelvis shows no acute pathology. Hepatic steatosis. Diverticulosis without diverticulitis. Prostamegaly. Pancreas unremarkable. He does have a left renal cyst. Replete blood sugar to 281 which is improved from prior. Likely elevated because patient was given steroids for contrast allergy. Monitor sugar at home. Patient states he has insulin injections that he can use if needed. At this point in time, no clear etiology to explain patient's abdominal pain. It has improved here. Recommend following up with primary care physician. Return back to ED if symptoms change or worsen. He confirmed understand the plan. Will prescribe Bentyl as needed. Impression: 1. Right upper quadrant/flank pain 2. Hyperglycemia with known diabetes 3. History of pancreatitis Lab Data Labs: Laboratory Results - last 24 hr 09/10/25 09/10/25 09/10/25 08:40 09:14 09:32 WBC 9.9 RBC 4.60 Hgb 14.4 Hct 42.0 MCV 91.3 MCH 31.3 MCHC 34.3 RDW Std Deviation 41.1 RDW Coeff of Armin 12.6 Plt Count 211 MPV 10.4 Immature Gran % (Auto) 0.500 Neut % (Auto) 67.0 Lymph % (Auto) 24.4 [place] % (Auto) 6.5 Eos % (Auto) 1.1 Baso % (Auto) 0.5 Absolute Neuts (auto) 6.6 Absolute Lymphs (auto) 2.41 Nucleated RBC % 0 Sodium 136 Potassium 3.6 Chloride 96 L Carbon Dioxide 23.4 Anion Gap 16 H BUN 18 Creatinine 1.07 Estim Creat Clear Calc 73.42 Est GFR (MDRD) Non-Af 79 BUN/Creatinine Ratio 16.8 Glucose 352 H Lactic Acid 1.6 Calcium 10.3 Total Bilirubin 0.80 AST 12 ALT 14 Alkaline Phosphatase 71 Total Protein 7.9 Albumin 4.7 Globulin 3.2 Albumin/Globulin Ratio 1.5 Lipase 94 H Urine Color Urine Clarity Urine pH Ur Specific [place] Urine Protein Urine Glucose (UA) Urine Ketones Urine Occult Blood Urine Nitrite Urine Bilirubin Urine Urobilinogen Ur Leukocyte Esterase Urine RBC Urine WBC Ur Squamous Epith Cells Urine Bacteria Urine Mucus Ethyl Alcohol < 10.1 09/10/25 09:58 WBC RBC Hgb Hct MCV MCH MCHC RDW Std Deviation RDW Coeff of Armin Plt Count MPV Immature Gran % (Auto) Neut % (Auto) Lymph % (Auto) [place] % (Auto) Eos % (Auto) Baso % (Auto) Absolute Neuts (auto) Absolute Lymphs (auto) Nucleated RBC % Sodium Potassium Chloride Carbon Dioxide Anion Gap BUN Creatinine Estim Creat Clear Calc Est GFR (MDRD) Non-Af BUN/Creatinine Ratio Glucose Lactic Acid Calcium Total Bilirubin AST ALT Alkaline Phosphatase Total Protein Albumin Globulin Albumin/Globulin Ratio Lipase Urine Color Yellow Urine Clarity Clear Urine pH 6.0 Ur Specific [place] 1.015 Urine Protein 100 H Urine Glucose (UA) 1000 H Urine Ketones Negative Urine Occult Blood 10 H Urine Nitrite Negative Urine Bilirubin Negative Urine Urobilinogen Normal Ur Leukocyte Esterase Negative Urine RBC 0 SEEN Urine WBC 0 SEEN Ur Squamous Epith Cells 0-5 SEEN Urine Bacteria 0 SEEN Urine Mucus 0 SEEN Ethyl Alcohol Radiography Diagnostic Testing: Clinical Impression(s) from Imaging Studies Abdomen/Pelvis CT 09/10/25 08:59 IMPRESSION: 1. No acute abdominopelvic pathology. 2. Hepatic steatosis. 3. Diverticulosis without evidence of diverticulitis. 4. Prostatomegaly. 5. Additional details as discussed in the body of the report. Reading Location: [id number] Discharge Plan Triage Chief Complaint: Abd Pain ED Provider: Henrry Hoang Dx/Rx/DC Orders Prescriptions: No Action amitriptyline 25 mg tablet 25 mg PO QHS gabapentin 300 mg capsule 300 mg PO BID levocarnitine 330 mg tablet 660 mg PO BID Qty: 120 11RF Rx Instructions: must administer with a meal/food levetiracetam 500 mg tablet 500 mg PO BID Qty: 60 11RF cholecalciferol (vitamin D3) 5,000 capsule 1 cap PO DAILY metformin 500 MG tablet 500 mg PO BID Qty: 0 0RF aspirin 81 mg Tablet,Delayed Release (Dr/Ec) 81 mg PO DAILY losartan 25 mg tablet 25 mg PO DAILY escitalopram oxalate 10 mg tablet 10 mg PO DAILY tamsulosin 0.4 mg Capsule 0.4 mg PO DAILY@1730 30 Days Qty: 30 0RF pantoprazole [Protonix] 40 mg tablet,delayed release (DR/EC) 40 mg PO DAILY Qty: 30 0RF latanoprost 0.005 % drops 1 drp ophthalmic (eye) QHS magnesium oxide 400 mg (241.3 mg magnesium) tablet 400 mg PO BID pravastatin 20 mg tablet 20 mg PO DAILY loratadine 10 mg tablet 10 mg PO DAILY insulin glargine [Lantus Solostar U-100 Insulin] 100 unit/mL (3 mL) insulin pen 12 unit subcut QHS acetaminophen 500 mg capsule 1,000 mg PO Q6H PRN (Reason: pain) metoclopramide HCl [Reglan] 5 mg tablet 5 mg PO Q8H PRN PRN (Reason: nausea and vomiting) Qty: 10 0RF hydrochlorothiazide 25 mg tablet 25 mg PO DAILY Qty: 30 11RF amlodipine 10 mg tablet 10 mg PO DAILY Qty: 90 3RF Creon 12,000-38,000 -60,000 unit capsule,delayed release(DR/EC) 2 cap PO .COMPLEX Qty: 300 11RF Rx Instructions: 2 caps orally ; take 1-2 with snacks and 2-3 with meals; famotidine 40 mg tablet 40 mg PO BID Qty: 3 0RF Rx Instructions: Take 1 pill [address] scan abdomen pelvis, take 1 pill [address] scan abdomen pelvis, take 1 pill [address] scan abdomen pelvis cetirizine [Zyrtec] 10 mg tablet 10 mg PO QDAY PRN (Reason: allergy symptoms) Qty: 1 0RF Rx Instructions: Take 1 pill [address] scan Primary Care Provider: Lobito Maldonado Referrals: Lobito Maldonado MD [Primary Care Provider, Internal Medicine] Print Language: Tunisian
[2025-09-10] MEDS: 0.9% Normal Saline (1000mL) 1,000 ML 999 ML IV (09:12)
[2025-09-10] MEDS: fentaNYL 100 MCG/2 ML Ampul 50 MCG IV (09:14)
[2025-09-10] MEDS: DiphenhydrAMINE 50 MG/ML Syringe 25 MG IV ×2 (09:17→10:14)
[2025-09-10 09:34] LABS: Hematocrit 42.0 % (40-54); Hemoglobin 14.4 g/dL (13.0-16.5); Immature Granulocytes Count 0.050 X10^3/uL (0.0-0.0); Mean Corp Hgb Conc 34.3 g/dL (32-36); Mean Corpuscular Volume 91.3 fL (80-94); Mean Platelet Vol. 10.4 fl (6.2-12.0); NRBC Flagged by Analyzer 0 % (0-5); Platelet Count 211 K/mm3 (150-450); RBC Distribution Width CV 12.6 % (11.6-14.6); RBC Distribution Width SD 41.1 fl (35.1-43.9); Red Blood Count 4.60 M/mm3 (4.6-6.2); White Blood Count 9.9 K/mm3 (4.4-11.0)
[2025-09-10 10:08] LABS: AST(SGOT) 12 U/L (<=37); Alanine Aminotransfer ALT/SGPT 14 U/L (<=46); Albumin, Serum 4.7 g/dL (3.4-4.8); Alkaline Phosphatase 71 U/L (40-129); Anion Gap 16 (5-15); BUN 18 mg/dL (4-19); BUN/Creat Ratio 16.8 RATIO (10-20); Calcium,Total 10.3 mg/dL (7.6-11.0); Carbon Dioxide 23.4 mmol/L (21.0-32.0); Chloride 96 mmol/L (98-108); Estimated Creatinine Clearance 73.42 ml/min (50-250); Globulin 3.2 g/dL (2.2-4.2); Glucose 352 mg/dL (70-99); Lipase 94 U/L (13-75); Potassium 3.6 mmol/L (3.3-5.1)
[2025-09-10 10:19] LABS: Mucous, Urine 0 SEEN /hpf (<or=2+); Red Blood Cells-Urine 0 SEEN /hpf (0-5)
[2025-09-10 10:21] VITALS: BP 157/98; PULSE 73; RESP 16; O2SAT 100
[2025-09-10 10:22] LABS: Color, Urine Yellow (Yellow); Glucose, Dipstick 1000 mg/dl (Normal); Ketone-Dipstick Negative (Negative); Leukocyte Esterase-Dipstick Negative /ul (Negative); Nitrite-Dipstick Negative (Negative); Occult Blood-Urine 10 /ul (Negative); Protein-Dipstick 100 mg/dl (Negative); Specific Gravity, Urine 1.015 (1.002-1.030); Urine Bilirubin Dipstick Negative (Negative)
[2025-09-10 10:28] LABS: Alcohol, Blood (Medical)-Serum < 10.1 mg/dL (<=10.0)
[2025-09-10 10:48] LABS: Squamous Epithelial Cells - UA 0-5 SEEN /hpf (0-5)
[2025-09-10 12:06] VITALS: BP 132/100; PULSE 80; RESP 25; O2SAT 99
[2025-09-10 13:12] VITALS: BP 143/88; PULSE 96; RESP 16; TEMP 37.1; O2SAT 100
== END 2025-09-10 13:17 | disposition home or self-care (01) ==
PROVIDERS: Emergency Provider Surgery; PCP Internal Medicine; Visit Provider Surgery
DX: R10.11 Right upper quadrant pain (principal); E11.65 Type 2 diabetes mellitus with hyperglycemia; Z79.4 Long term (current) use of insulin; K76.0 Fatty (change of) liver, not elsewhere classified; E86.0 Dehydration; K57.90 Diverticulosis of intestine, part unspecified, without perforation or abscess without bleeding; I10 Essential (primary) hypertension; N28.1 Cyst of kidney, acquired; Z87.891 Personal history of nicotine dependence; E78.5 Hyperlipidemia, unspecified; F10.10 Alcohol abuse, uncomplicated; K21.9 Gastro-esophageal reflux disease without esophagitis; Z79.84 Long term (current) use of oral hypoglycemic drugs; Z79.82 Long term (current) use of aspirin; Z79.899 Other long term (current) drug therapy
CPT/HCPCS: 74177; 80053; 81001; 82077; 82962; 83605; 83690; 85025; 96361; 96374; 96375; 96376; 99283; Q9967; A4216; J2405